=== PATIENT | female | born 1950 | race Caucasian/White ===

== ENCOUNTER 2021-01-30 17:56 | Inpatient (IN) | payer MEDICARE, MEDICAID, SELFPAY ==
[2021-01-30] VITALS (13 sets, daily range): BP systolic 118–146; BP diastolic 56–78; PULSE 81–110; RESP 20–26; TEMP 36.4–37.1; O2SAT 66–93; BMI 50.3; BMI 49.6
--- NOTE | 2021-01-30 18:42 | EKG12_ITS ---
Test Reason : DYSRHYTHMIA Blood Pressure : / mmHG Vent. Rate : 087 BPM Atrial Rate : 087 BPM P-R Int : 174 ms QRS Dur : 076 ms QT Int : 398 ms P-R-T Axes : 052 -13 019 degrees QTc Int : 478 ms Normal sinus rhythm Low voltage QRS ST & T wave abnormality, consider anterior ischemia Abnormal ECG Confirmed by KEVIN CASANOVA, BOB ([id number]), editor continuity and script ALYSE SAUER ([id number]) on 02/04/2021 8:45:08 AM Referred By: JUAN J Confirmed By:BOB BROWN MD
--- NOTE | 2021-01-30 18:43 | EDS_ITS ---
HPI History of Present Illness Chief Complaint: Cough Informant: patient Onset/Context/Timing Onset: Days (3 days) Context: Gradual Onset Narrative Narrative: Patient presents secondary to cough and sore throat for the past 3 days. She is a history of COPD. She does report increasing shortness of breath, wheezing, and for increased use of her inhaler. She is normally on 2 to 3 L of oxygen at home but does not know what her oxygen saturation runs on that. She does not follow with a cardiovascular specialist. She reportedly went to [facility] [place] to be seen today. She was unhappy with the care there and came to [place] to be evaluated. She did not have her home oxygen with her during the ride. On arrival to the emergency room her O2 sat was 66% on room air. At the time of my examination her O2 sat is in the low 90s on 6 L nasal cannula. [facility] Medical History COPD (chronic obstructive pulmonary disease) HTN (hypertension) Allergy/AdvReac Type Severity Reaction Status Date / Time aspirin AdvReac Abd Verified 01/30/21 18:05 cramps/diarrhea codeine AdvReac Abd Verified 01/30/21 18:05 cramps/diarrhea Social History Smoking Status: Former smoker ROS ROS ED Constitutional Constitutional ED: Denies chills or fever(s) Eyes Eyes: Denies change in vision ENT ENT ED: Reports sore throat Respiratory/Chest Respiratory/Chest: Reports cough, dyspnea and sputum Gastrointestinal Gastrointestinal: Denies abdominal pain, diarrhea, nausea or vomiting Genitourinary Genitourinary ED: Denies dysuria Musculoskeletal Musculoskeletal: Denies back pain Integumentary Denies rash Neurologic Neurologic: Denies headache(s) or weakness Psychiatric Psychiatric: Denies anxiety or depression Endocrine Endocrinology: Denies polydipsia or polyuria Allergic/Immunologic Allergic/Immunologic ED: Denies urticaria EXAM Physical Exam Const Vital Signs: 01/30/21 17:56 01/30/21 17:57 01/30/21 18:01 Temperature 98.8 F 98.8 F Temperature Source Oral Oral Pulse Rate 94 94 Respiratory Rate 24 H 24 H Respiratory Effort Respiratory Depth Respiratory Pattern Blood Pressure 146/77 H 146/77 H Blood Pressure Mean 100 100 Pulse Ox 88 66 66 Oxygen Delivery Method Nasal Cannula Room Air Room Air Oxygen Flow Rate (L/min) 6 01/30/21 18:02 01/30/21 18:05 01/30/21 18:57 Temperature Temperature Source Pulse Rate 85 Respiratory Rate 26 H Respiratory Effort Short of Breath Short of Breath Labored Respiratory Depth Shallow Respiratory Pattern Tachypnea Blood Pressure Blood Pressure Mean Pulse Ox 90 92 Oxygen Delivery Method Nasal Cannula Nasal Cannula Nasal Cannula Oxygen Flow Rate (L/min) 6 6 6 01/30/21 19:00 01/30/21 19:58 01/30/21 20:00 Temperature 98.1 F 98.1 F Temperature Source Oral Oral Pulse Rate 87 81 Respiratory Rate 22 H 24 H Respiratory Effort Respiratory Depth Respiratory Pattern Blood Pressure 120/56 L 137/74 H Blood Pressure Mean 77 95 Pulse Ox 91 93 Oxygen Delivery Method Nasal Cannula Airvo Airvo Oxygen Flow Rate (L/min) 5 8 8 01/30/21 21:00 Temperature 98.1 F Temperature Source Oral Pulse Rate 110 H Respiratory Rate 21 H Respiratory Effort Respiratory Depth Respiratory Pattern Blood Pressure 129/78 H Blood Pressure Mean 95 Pulse Ox 93 Oxygen Delivery Method Airvo Oxygen Flow Rate (L/min) 8 Positive well nourished and well developed General Appearance ED: well developed HEENT Reports normocephalic and head/scalp atraumatic HEENT Narrative: Posterior pharyngeal drainage. Uvula midline. Patient tolerating secretions well. Eyes PERRL and EOMs intact bilaterally Neck supple Chest Wall inspection of chest normal and palpation of chest normal Resp normal respiratory effort Auscultation: diminished lung sounds Cardio regular rate and regular rhythm GI normal to inspection, nondistended, normoactive bowel sounds Palpation: soft Extremity normal to inspection Neuro oriented x3 and no sensory deficits noted Sensorium / Orientation: alert Motor Exam: strength 5/5 throughout Psych mental status grossly normal Skin no rashes or lesions noted MDM MDM MDM Narrative Medical decision making narrative: Patient is on 6 L nasal cannula at the time of my examination. Chest x-ray, labs, Covid swab obtained. Lab Data Attestation: I reviewed the patient's lab results. Labs: Laboratory Results - last 24 hr 01/30/21 01/30/21 01/30/21 18:00 18:00 18:00 WBC 5.5 RBC 5.02 Hgb 13.9 Hct 44.3 MCV 88.2 MCH 27.7 MCHC 31.4 L RDW Std Deviation 46.9 H RDW Coeff of Mike 14.6 Plt Count 198 MPV 9.5 Immature Gran % (Auto) 1.300 H Neut % (Auto) 72.0 H Lymph % (Auto) 19.9 Hinds % (Auto) 6.6 Eos % (Auto) 0.0 Baso % (Auto) 0.2 Absolute Neuts (auto) 3.9 Absolute Lymphs (auto) 1.09 Nucleated RBC % 0.7 D-Dimer Quant (PE/DVT) Sodium 139 Potassium 3.3 L Chloride 97 L Carbon Dioxide 34.0 H Anion Gap 8 BUN 10 Creatinine 0.77 Estim Creat Clear Calc 48.30 Est GFR (MDRD) Af Amer 94 Est GFR (MDRD) Non-Af 78 BUN/Creatinine Ratio 12.9 Glucose 142 H Lactic Acid 2.2 H* Calcium 7.8 L Troponin I High Sens 35.4 B-Natriuretic Peptide 01/30/21 01/30/21 18:00 18:50 WBC RBC Hgb Hct MCV MCH MCHC RDW Std Deviation RDW Coeff of Mike Plt Count MPV Immature Gran % (Auto) Neut % (Auto) Lymph % (Auto) [place] % (Auto) Eos % (Auto) Baso % (Auto) Absolute Neuts (auto) Absolute Lymphs (auto) Nucleated RBC % D-Dimer Quant (PE/DVT) 1.55 H* Sodium Potassium Chloride Carbon Dioxide Anion Gap BUN Creatinine Estim Creat Clear Calc Est GFR (MDRD) Af Amer Est GFR (MDRD) Non-Af BUN/Creatinine Ratio Glucose Lactic Acid Calcium Troponin I High Sens B-Natriuretic Peptide 31.6 Radiography Chest X-Ray - ED: 1 View, Read by ED Physician, Right Infiltrate and Left Infiltrate Diagnostic Testing: Radiology Impression Chest X-Ray 01/30/21 19:22 IMPRESSION: Ill-defined patchy bilateral pulmonary opacities. Electronically Signed: Ash Hartman MD at 19:44 EDT , Service support , Chest CTA 01/30/21 19:48 IMPRESSION: Normal CTA chest examination, without a demonstrated pulmonary embolism or arterial dissection. There is evidence for pulmonary arterial hypertension. Bilateral patchy pulmonary opacities are seen for which multifocal pneumonia is possible. Electronically Signed: Ash Hartman MD at 21:36 EDT , Service support , EKG Initial EKG: Attestation: I personally reviewed and interpreted this EKG as follows: Interpretation: Sinus Rhythm (Sinus 87 with no acute ischemia.) Treatment and Re-Evaluation Comments:: Chest x-ray per my interpretation does reveal bilateral infiltrates. Covid swab is positive. Blood work is reviewed and does include elevated D- dimer and a lactic acid of 2.2. Patient is sent for CTA of the chest which does not reveal evidence of a PE. Bilateral infiltrates are noted. At this time patient is on 10 L high flow nasal cannula oxygen. Sat is 93%. She will be given a dose of Decadron and admitted for further treatment. Discharge Plan Triage Chief Complaint: Cough ED Provider: Daiana Casper Dx/Rx/DC Orders Clinical Impression: Pneumonia due to COVID-19 virus Primary Care Provider: Care Physician,No Primary Referrals: Care Physician,No Primary [Primary Care Provider] - Disposition Disposition: Acute Care [facility]
[2021-01-30] MEDS: Ipratropium/Albuterol Sulfate 3 ML AMPUL.NEB INHALATION (18:57)
[2021-01-30 19:14] LABS: Anion Gap 8 (5-15); BUN 10 mg/dL (7-18); BUN/Creat Ratio 12.9 RATIO (10-20); Calcium,Total 7.8 mg/dL (8.5-10.1); Chloride 97 mmol/L (98-107); Creatinine, Serum 0.77 mg/dL (0.55-1.02); EST Glomerular Filtration Rate 78 mL/min (>60); Est Glom Filt Rate - Afr Amer 94 mL/min (>60); Glucose 142 mg/dL (74-106); Potassium 3.3 mmol/L (3.5-5.1); Sodium Level 139 mmol/L (136-145); Troponin-I HS 35.4 pg/mL (3.0-53.7)
[2021-01-30 19:19] LABS: Lactic Acid 2.2 mmol/L (0.4-1.9)
[2021-01-30 19:20] LABS: Absolute Lymphocyte Count 1.09 X10^3/uL (0.83-4.51); Absolute Neutrophil Count 3.9 X10^3/uL (2.0-7.7); Basophil# 0.01 X10^3/uL; Basophil% 0.2 % (0-1); Hematocrit 44.3 % (37-47); Hemoglobin 13.9 g/dL (12.0-15.0); Lymphocyte # 1.09 X10^3/ul (0.83-4.51); Lymphocyte % 19.9 % (19-41); Mean Corp Hgb Conc 31.4 g/dL (32-36); Mean Corpuscular Hgb 27.7 pg (27.0-32.0); Mean Corpuscular Volume 88.2 fL (81-99); Mean Platelet Vol. 9.5 fl (6.2-12.0); Monocyte# 0.36 X10^3/uL; Monocyte% 6.6 % (0-10); NRBC Flagged by Analyzer 0.7 % (0-5); Neutrophil # 3.94 X10^3/uL (2.7-7.7); Platelet Count 198 K/mm3 (150-450); RBC Distribution Width CV 14.6 % (11.6-14.6); RBC Distribution Width SD 46.9 fl (35.1-43.9); Red Blood Count 5.02 M/mm3 (4.2-5.4); White Blood Count 5.5 K/mm3 (4.4-11.0)
--- NOTE | 2021-01-30 19:22 | RAD_ITS ---
STUDY: X-RAY CHEST REASON FOR EXAM: Female, 70 years old. sob TECHNIQUE: Single AP portable view of the chest. COMPARISON: None. FINDINGS: Normal lung volumes. Bilateral ill-defined patchy pulmonary opacities most pronounced in the lung bases. Findings are nonspecific but could represent multifocal pneumonia. Consider further evaluation with CT. No gross effusion. There is moderate cardiac enlargement. Normal mediastinum and vini. Normal visualized pulmonary arteries. Normal visualized aortic arch and descending thoracic aorta. There are diffuse degenerative changes of the visualized thoracic spine. Normal visualized ribs, clavicles, and shoulders. There is no demonstrated abnormality of the visualized soft tissue structures of the upper abdomen. RAD/Chest 1 View (Portable) IMPRESSION: Ill-defined patchy bilateral pulmonary opacities. Electronically Signed: Ash Hartman MD at 19:44 EDT , Service support ,
[2021-01-30 19:33] LABS: D-Dimer Quantitative (DVT/PE) 1.55 FEU/ug/m (0.27-0.49)
[2021-01-30 19:41] LABS: BNP,B-Type NATRIURETIC PEPTIDE 31.6 pg/mL (0-100)
--- NOTE | 2021-01-30 19:48 | CT_ITS ---
STUDY: CTA CHEST REASON FOR EXAM: Female, 70 years old. sob -- Covid + RADIATION DOSAGE (If Supplied By Facility): CTDIvol = ( 26.75 ) mGy, DLP = ( 543.01 ) mGycm TECHNIQUE: The examination was performed with the intravenous administration of IV 100mL Isovue-370. Post-processing of the angiographic images was performed, with multiplanar reformation and 3D reconstruction. Individualized dose optimization techniques were used for this CT. COMPARISON: None. FINDINGS: Normal enhancement of the main pulmonary artery and right and left pulmonary arteries. Normal enhancement of the bilateral peripheral pulmonary arteries. There is no demonstrated pulmonary embolism. There is prominence of the main pulmonary arteries without peripheral pulmonary vascular congestion, suggesting pulmonary hypertension. Normal thoracic aorta and visualized great vessels. There is no demonstrated aortic dissection. Moderate cardiomegaly. Mild nonspecific mediastinal and hilar adenopathy. Normal visualized trachea and bronchi. The lungs are under expanded. There are bilateral patchy areas of ill-defined pulmonary opacities in the perihilar regions, and lower lobe is worse on the left. The findings are nonspecific and of uncertain chronicity since are no prior studies. Findings could represent patchy atelectasis and/or multifocal pneumonia. No effusions . Normal osseous structures. Normal visualized upper abdomen. CT/CTA Chest W/WO Contrast IMPRESSION: Normal CTA chest examination, without a demonstrated pulmonary embolism or arterial dissection. There is evidence for pulmonary arterial hypertension. Bilateral patchy pulmonary opacities are seen for which multifocal pneumonia is possible. Electronically Signed: Ash Hartman MD at 21:36 EDT , Service support ,
[2021-01-30] MEDS: dexAMETHasone 4 MG Tablet 6 MG PO (22:17)
[2021-01-30 22:55] LABS: Reflex Lactate? Y
--- NOTE | 2021-01-30 22:57 | PCM.HP.STD ---
HPI - General General Date of Admission: 01/30/21 HPI Narrative JERRY BRO, is a 70 F with multiple comorbidities including COPD, CHF on 3 L of home oxygen, 11/01 was using BiPAP in the past but not recently came to [facility] ED for worsening shortness of breath, cough with greenish-yellowish sputum, increased use of inhalers for past 3 to 4 days. She denies fever, chills, chest pain/pressure. In ED her pulse ox was found 66% on room air and currently on 10 L of oxygen in ED. Vitals in ED, heart rate 108/min, respiratory rate 22-24/min Abnormal labs done in ER shows elevated D-dimer 1.55, K3.3, lactic acid 2.2. BNP normal. Troponin normal. CTA chest done in ER shows evidence of pulmonary arterial hold for SBP less than 120 mmHg and bilateral patchy pulmonary opacity consistent with multifocal pneumonia. No PE. [facility] Medical History CHF (congestive heart failure) COPD (chronic obstructive pulmonary disease) Dyslipidemia HTN (hypertension) Allergy/AdvReac Type Severity Reaction Status Date / Time aspirin AdvReac Abd Verified 01/30/21 18:05 cramps/diarrhea codeine AdvReac Abd Verified 01/30/21 18:05 cramps/diarrhea Social History (Updated 01/30/21 @ 23:[address] Isidoro De La Fuente MD) Smoking Status: Former smoker Tobacco: How many years used: 30 ROS ROS Narrative Constitutional: Reports fatigue and weakness. Denies fever HEENT: Reports systems reviewed and no addt'l complaints, except as documented Respiratory/Chest: Denies chest pain, shortness of breath at rest. Rest as mentioned in HPI Gastrointestinal: Nausea present. Denies coffee ground emesis, hematemesis or vomiting Genitourinary: Chronic urinary incontinence. Denies burning urination or new urinary tract symptoms Musculoskeletal: Reports joint pain and limited range of motion Neurologic: Denies seizure-like activity skin: Venous congestion on lower legs, edematous. No ulcer. Endocrinology: Reports systems reviewed and no addt'l complaints, except as documented Hematologic/Lymphatic: Reports systems reviewed and no addt'l complaints, except as documented Rest 12 ROS are negative except as mentioned in HPI Vital Signs Vital Signs Vital Signs: 01/30/21 17:56 01/30/21 17:57 01/30/21 18:01 Temperature 98.8 F 98.8 F Temperature Source Oral Oral Pulse Rate 94 94 Respiratory Rate 24 H 24 H Respiratory Effort Respiratory Depth Respiratory Pattern Blood Pressure 146/77 H 146/77 H Blood Pressure Mean 100 100 Pulse Ox 88 66 66 Oxygen Delivery Method Nasal Cannula Room Air Room Air Oxygen Flow Rate (L/min) 6 01/30/21 18:02 01/30/21 18:05 01/30/21 18:57 Temperature Temperature Source Pulse Rate 85 Respiratory Rate 26 H Respiratory Effort Short of Breath Short of Breath Labored Respiratory Depth Shallow Respiratory Pattern Tachypnea Blood Pressure Blood Pressure Mean Pulse Ox 90 92 Oxygen Delivery Method Nasal Cannula Nasal Cannula Nasal Cannula Oxygen Flow Rate (L/min) 6 6 6 01/30/21 19:00 01/30/21 19:58 01/30/21 20:00 Temperature 98.1 F 98.1 F Temperature Source Oral Oral Pulse Rate 87 81 Respiratory Rate 22 H 24 H Respiratory Effort Respiratory Depth Respiratory Pattern Blood Pressure 120/56 L 137/74 H Blood Pressure Mean 77 95 Pulse Ox 91 93 Oxygen Delivery Method Nasal Cannula Airvo Airvo Oxygen Flow Rate (L/min) 5 8 8 01/30/21 21:00 01/30/21 22:00 01/30/21 22:25 Temperature 98.1 F 98.1 F 98.5 F Temperature Source Oral Oral Oral Pulse Rate 110 H 107 H 108 H Respiratory Rate 21 H 20 H 22 H Respiratory Effort Respiratory Depth Respiratory Pattern Blood Pressure 129/78 H 118/78 118/78 Blood Pressure Mean 95 91 91 Pulse Ox 93 92 92 Oxygen Delivery Method Airvo Airvo Airvo Oxygen Flow Rate (L/min) 8 8 10 Weight Weight: 311 lb 11.738 oz Body Mass Index (BMI) 50.3 Physical Exam Narrative General: Alert, Oriented x3, Cooperative HEENT: Atraumatic, PERRLA, EOMI, Normocephalic Oral: No Gingival or Mucosal Lesions/ Ulcerations Neck: Supple, No JVD, Negative Carotid Bruits Lungs: Air entry diminished in bilateral lung bases. Bilateral expiratory rhonchi present. Tachypneic and hypoxic Cardiovascular: Sinus tachycardia, normal S1, Normal S2, No murmurs Abdomen: Bowel Sounds Present, Soft, Non Tender, Non-Distended : Chronic urinary incontinence. No renal angle tenderness. No suprapubic tenderness. Extremities: Bilateral 2+ ankle edema, Capillary Refill Less than 3 Seconds Skin: No rashes, No breakdown Musculoskeletal: No Tenderness to Palpation of Joints or Extremities Neurological: Cranial nerves II-XII grossly intact, DTR 2+/4 and Symmetrical, Neuro grossly intact Psych/Mental Status: Normal Affect, Appropriate. Results Lab / Micro Data Result Diagrams: 01/30/21 18:00 01/30/21 18:00 Labs: Laboratory Results - last 24 hr 01/30/21 18:00: WBC 5.5, RBC 5.02, Hgb 13.9, Hct 44.3, MCV 88.2, MCH 27.7, MCHC 31.4 L, RDW Std Deviation 46.9 H, RDW Coeff of Mike 14.6, Plt Count 198, MPV 9.5, Immature Gran % (Auto) 1.300 H, Neut % (Auto) 72.0 H, Lymph % (Auto) 19.9, [place] % (Auto) 6.6, Eos % (Auto) 0.0, Baso % (Auto) 0.2, Absolute Neuts (auto) 3.9, Absolute Lymphs (auto) 1.09, Nucleated RBC % 0.7 01/30/21 18:00: Sodium 139, Potassium 3.3 L, Chloride 97 L, Carbon Dioxide 34.0 H, Anion Gap 8, BUN 10, Creatinine 0.77, Estim Creat Clear Calc 48.30, Est GFR (MDRD) Af Amer 94, Est GFR (MDRD) Non-Af 78, BUN/Creatinine Ratio 12.9, Glucose 142 H, Calcium 7.8 L, Troponin I High Sens 35.4 01/30/21 18:00: Lactic Acid 2.2 H* 01/30/21 18:00: B-Natriuretic Peptide 31.6 01/30/21 18:50: D-Dimer Quant (PE/DVT) 1.55 H* Micro: Microbiology 01/30/21 19:06 Mucosa - Nose SARS-CoV-2 Antigen (Rapid) - Final SARS-CoV-2 (COVID 19) Radiology Impression Chest X-Ray 01/30/21 19:22 IMPRESSION: Ill-defined patchy bilateral pulmonary opacities. Electronically Signed: Ash Hartman MD at 19:44 EDT , Service support , Chest CTA 01/30/21 19:48 IMPRESSION: Normal CTA chest examination, without a demonstrated pulmonary embolism or arterial dissection. There is evidence for pulmonary arterial hypertension. Bilateral patchy pulmonary opacities are seen for which multifocal pneumonia is possible. Electronically Signed: Ash Hartman MD at 21:36 EDT , Service support , Assessment & Plan Assessment/Plan (1) Pneumonia due to COVID-19 virus: PLAN: This 70-year-old female with history of COPD on 3 L of oxygen at home admitted with acute on chronic hypoxic respiratory failure secondary to Covid bilateral pneumonia. 1. Acute on chronic hypoxic respiratory failure secondary to bilateral COVID-19 pneumonia: Patient baseline bicarb is 34 suggestive of chronic CO2 retention. ABG ordered. started on the BiPAP. [employer] consult. Currently patient on 10 L of oxygen in ED. She is open to intubation and ventilator if needed. 2. Severe sepsis due to bilateral COVID-19 pneumonia: Started on IV Decadron and remdesivir. ID consult. Inflammatory markers, procalcitonin ordered. Sputum culture, respiratory panel and urinary antigens ordered. Lactic acid elevated. She has leg edema and seems fluid overloaded with history of CHF therefore not a candidate for IV fluid resuscitation. If patient spikes fever, will need blood culture. 3. 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 She has not brought her medications. 4. She also has history of CHF, exact etiology and type unclear. 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 2D echo is ordered. Lasix 40 mg IV daily from tomorrow a.m. and titrate as needed. 5. Other comorbidities include hypertension, dyslipidemia, morbid obesity: BMI 50.3 kg/m?. Patient's daughter did not bring medication list and patient is new to our system. Her medical care including PCP was at [place]. VTE prophylaxis: Lovenox 40 mg subcu twice daily Living will/advanced directive/end of life care: Patient does not have living will or advanced directive. Her daughter Mrs. Ana Luisa Cummings is power of commercial litigation attorney for health. After discussion of benefits/risks procedures involved with full code, DNR CC arrest and DNR CC, the patient and her daughter opted for full code Patient does want artificial life support including intubation, tube feed, ventilator and/chest compression, central venous catheter, vasopressor and DC shock if needed Total time spent in [id number] encounter in discussion of advanced directive 16 minutes. Charges/Coding Visit Charges Inpatient E&M: 99800 Init Hosp L3 Procedures Hospitalists Procedures: 74971 Advncd Care Plan 30 Min
[2021-01-31] VITALS (26 sets, daily range): BP systolic 103–138; BP diastolic 53–77; PULSE 70–107; RESP 12–24; TEMP 35.8–36.1; O2SAT 90–95
[2021-01-31 00:10] LABS: Allen Test Positive; Base Excess 9 mmol/L (-2 to +2); Bicarbonate 32.7 mmol/L (22-26); Blood Gas Specimen Type ART; O2 Delivery Device Cannula; PO2 57 mmHG (75-100); SITE R Radial; SO2 90 % (95-99); Total Carbon Dioxide 34 mmol/L; pCO2 47.4 mmHg (35-45); pH 7.45 (7.35-7.45)
[2021-01-31] MEDS: Ipratropium/Albuterol Sulfate 3 ML AMPUL.NEB INHALATION ×6 (00:13→22:53)
[2021-01-31 00:28] LABS: Fibrinogen 737 mg/dl (203-444)
[2021-01-31] MEDS: Enoxaparin 40 MG/0.4 ML Syringe SC ×3 (00:33→22:24)
[2021-01-31 00:37] LABS: LDH 543 U/L (84-246); Magnesium 1.9 mg/dL (1.6-2.6)
[2021-01-31] MEDS: guaiFENesin 1,200 MG Tablet 1200 MG PO ×3 (00:41→22:24)
[2021-01-31 00:46] LABS: Procalcitonin 0.11 ng/mL (0.00-0.09)
[2021-01-31 00:57] LABS: CPK Total, Creatine Kinase 181 U/L (26-192)
[2021-01-31 01:09] LABS: Lactic Acid 1.6 mmol/L (0.4-1.9)
--- NOTE | 2021-01-31 02:25 | CPS ---
Patient said at time of ABG that she has a CPAP at home, but is unable to tolerate it. Said that she has claustrophobia with full face mask. Will watch over patient of High flow NC. aware that BiPAP was not started for this reason.
[2021-01-31 05:45] LABS: Absolute Lymphocyte Count 0.56 X10^3/uL (0.83-4.51); Absolute Neutrophil Count 2.8 X10^3/uL (2.0-7.7); Basophil# 0.02 X10^3/uL; Basophil% 0.6 % (0-1); Hematocrit 40.7 % (37-47); Hemoglobin 12.7 g/dL (12.0-15.0); Lymphocyte # 0.56 X10^3/ul (0.83-4.51); Lymphocyte % 15.8 % (19-41); Mean Corp Hgb Conc 31.2 g/dL (32-36); Mean Corpuscular Hgb 27.7 pg (27.0-32.0); Mean Corpuscular Volume 88.7 fL (81-99); Mean Platelet Vol. 9.6 fl (6.2-12.0); Monocyte% 2.8 % (0-10); NRBC Flagged by Analyzer 0.8 % (0-5); Neutrophil # 2.79 X10^3/uL (2.7-7.7); Neutrophil % 78.5 % (47-70); POSITIVE DIFFERENTIAL YES; POSITIVE MORPHOLOGY YES; Platelet Count 174 K/mm3 (150-450); RBC Distribution Width CV 14.5 % (11.6-14.6); RBC Distribution Width SD 46.7 fl (35.1-43.9); Red Blood Count 4.59 M/mm3 (4.2-5.4); White Blood Count 3.6 K/mm3 (4.4-11.0)
--- NOTE | 2021-01-31 05:48 | EX.PCM.CONCC ---
Assessment & Plan Assessment/Plan (1) Pneumonia due to COVID-19 virus: PLAN: RECOMMENDATIONS: 1. Wean supplemental oxygen as tolerated. 2. Continue remdesivir and Decadron as ordered to complete treatment courses. 3. Infectious diseases consultation is pending. 4. Echocardiogram is pending. 5. Continue twice daily Lovenox. 6. Continue bronchodilator therapy. 7. Encourage incentive spirometer use and mobilize patient as tolerated. IMPRESSIONS: 1. Acute on chronic hypoxemic respiratory failure secondary to COVID-19 pneumonia The patient is unvaccinated and presented with less than 1 week of respiratory symptoms related to COVID-19 pneumonia. She does have a baseline 3 L/min oxygen requirement but is currently requiring an escalation in her flow rate to 6 L/min. She has already been started on remdesivir and Decadron. These medications will be continued without change. Infectious diseases consultation is pending. Plan to continue to wean supplemental oxygen as tolerated to maintain saturations at or above 90%. Encourage incentive spirometer use and mobilize patient as tolerated. 2. History of obstructive sleep apnea, noncompliant with nocturnal Pap therapy Recommend empiric use of BiPAP therapy, at a minimum, with naps and nightly. 3. History of tobacco dependency in remission/morbid obesity/self-reported history of CHF Complicates care, management, recovery and prognosis. Continue home medications as indicated. Physical therapy to work with the patient. This note was generated with [employer] dictation software. It may contain incorrect words, spelling, and punctuation that were not noted in checking the note before signing. HPI Consult Data Date of Consult: 01/31/21 HPI Narrative Reason for Consultation: Acute on chronic hypoxemic respiratory failure secondary to COVID-19 pneumo HPI Narrative: The patient is a 70-year-old female, with a history as outlined below, who presented to the emergency department on January 30 with complaints of progressive dyspnea and cough over the last week. The patient does have a self-reported history of COPD, despite never having completed pulmonary function studies. She has never been evaluated by a predatory game hunter. She does have a remote smoking history, having quit completely 18 years ago. In addition to the aforementioned, she does report a baseline oxygen requirement of 3 L/min via nasal cannula. The patient has also tested positive for sleep apnea in the past, but does not utilize any form of nocturnal Pap therapy. The patient has yet to be vaccinated for coronavirus. On presentation to the emergency department, the patient was noted to be afebrile and hemodynamically stable. Initial laboratory evaluation revealed no evidence of a leukocytosis. Coagulation profile revealed a D-dimer of 1.5. ABG obtained on 6 L/min revealed a pH of 7.45 with a corresponding PCO2 of 47 and PO2 of 57. Chemistry profile was notable for a potassium of 3.3, chloride of 97, bicarbonate of 34 and normal creatinine. Lactate was elevated to 2.2. Procalcitonin was noted to be 0.11. CRP was elevated at 134. Rapid coronavirus antigen testing was positive. Respiratory viral panel was negative. Strep and urine Legionella antigens were negative. CTA chest showed no evidence for PE. Bilateral patchy pulmonary infiltrates were noted. The patient was started on remdesivir, twice daily Lovenox and Decadron. She was admitted to the medical intensive care unit for further management. [facility] Medical History CHF (congestive heart failure) COPD (chronic obstructive pulmonary disease) Dyslipidemia HTN (hypertension) Allergy/AdvReac Type Severity Reaction Status Date / Time aspirin AdvReac Abd Verified 01/30/21 18:05 cramps/diarrhea codeine AdvReac Abd Verified 01/30/21 18:05 cramps/diarrhea Social History (Updated 01/30/21 @ 23:[address] Isidoro De La Fuente MD) Smoking Status: Former smoker Tobacco: How many years used: 30 ROS Constitutional Constitutional: Reports fatigue and malaise Eyes Eyes: Denies blurry vision or change in vision ENT HEENT: Denies dysphagia, headache(s) or loss taste/smell Cardiovascular Cardiovascular: Reports dyspnea; Denies chest pain Respiratory/Chest Respiratory/Chest: Reports cough and dyspnea Gastrointestinal Gastrointestinal: Denies abdominal pain, diarrhea, nausea or vomiting Genitourinary Genitourinary: Denies difficulty urinating Musculoskeletal Musculoskeletal: Denies arthralgias or back pain Integumentary Integumentary: Denies lesions, rash or skin ulcer Neurologic Neurologic: Denies abnormal gait or abnormal speech Psychiatric Psychiatric: Denies anxiety or depression Endocrine Endocrinology: Reports fatigue Hematologic/Lymphatic Hematologic/Lymphatic: Denies easy bleeding or easy bruising Physical Exam Const alert, oriented x3 and no apparent distress General Appearance: cooperative Nutritional Appearance: morbidly obese HEENT normocephalic, head/scalp atraumatic and moist oral mucous membranes Eyes PERRL, EOMs intact bilaterally and conjunctivae normal Neck supple General: trachea midline Resp normal respiratory effort and no use of accessory muscles Effort and Inspection: tachypneic Auscultation: diminished lung sounds; Negative for rales, rhonchi or wheezes Cardio regular rate and regular rhythm GI normal to inspection, nondistended, normoactive bowel sounds Extremity General Extremity: edema bilateral lower extremity; Negative for clubbing Skin no rashes or lesions noted Neuro CN's II-XII intact bilaterally and no focal motor deficits Psych cooperative and affect normal Lab / Micro Data Result Diagrams: 01/31/21 05:35 01/31/21 05:35 Labs: Laboratory Results - last 24 hr 01/30/21 18:00: WBC 5.5, RBC 5.02, Hgb 13.9, Hct 44.3, MCV 88.2, MCH 27.7, MCHC 31.4 L, RDW Std Deviation 46.9 H, RDW Coeff of Mike 14.6, Plt Count 198, MPV 9.5, Immature Gran % (Auto) 1.300 H, Neut % (Auto) 72.0 H, Lymph % (Auto) 19.9, [place] % (Auto) 6.6, Eos % (Auto) 0.0, Baso % (Auto) 0.2, Absolute Neuts (auto) 3.9, Absolute Lymphs (auto) 1.09, Nucleated RBC % 0.7 01/30/21 18:00: Sodium 139, Potassium 3.3 L, Chloride 97 L, Carbon Dioxide 34.0 H, Anion Gap 8, BUN 10, Creatinine 0.77, Estim Creat Clear Calc 48.30, Est GFR (MDRD) Af Amer 94, Est GFR (MDRD) Non-Af 78, BUN/Creatinine Ratio 12.9, Glucose 142 H, Calcium 7.8 L, Troponin I High Sens 35.4 01/30/21 18:00: Lactic Acid 2.2 H* 01/30/21 18:00: B-Natriuretic Peptide 31.6 01/30/21 18:00: Magnesium 1.9, Lactate Dehydrogenase 543 H, C-React Prot Ext Range 134.00 H 01/30/21 18:00: Total Creatine Kinase 181 01/30/21 18:00: Procalcitonin 0.11 H 01/30/21 18:50: D-Dimer Quant (PE/DVT) 1.55 H* 01/30/21 18:50: Fibrinogen 737 H 01/30/21 23:45: Lactic Acid 1.6 Micro: Microbiology 01/31/21 01:25 Urine, Clean Catch Legionella Antigen - Final 01/31/21 01:25 Urine, Clean Catch Streptococcus pneumoniae Antigen (M - Final 01/30/21 19:06 Mucosa - Nose SARS-CoV-2 Antigen (Rapid) - Final SARS-CoV-2 (COVID 19) ABG Data ABG results: ABG 01/31/21 00:02 Specimen Type ART Sample Site R Radial pH 7.45 Bicarbonate Actual 32.7 H Total CO2 34 Base Excess 9 H O2 Saturation 90 L ABG pCO2 47.4 H ABG pO2 57 L Jj Test Positive O2 Delivery Device Cannula Liter Flow 6.0 Radiology Impression Chest X-Ray 01/30/21 19:22 IMPRESSION: Ill-defined patchy bilateral pulmonary opacities. Electronically Signed: Ash Hartman MD at 19:44 EDT , Service support , Chest CTA 01/30/21 19:48 IMPRESSION: Normal CTA chest examination, without a demonstrated pulmonary embolism or arterial dissection. There is evidence for pulmonary arterial hypertension. Bilateral patchy pulmonary opacities are seen for which multifocal pneumonia is possible. Electronically Signed: Ash Hartman MD at 21:36 EDT , Service support , Charges/Coding Visit Charges Inpatient E&M: 63842 Init Hosp L3
[2021-01-31 06:07] LABS: Differential Indicated SCAN CRITERIA MET
[2021-01-31 06:12] LABS: ALB/GLOB Ratio 0.6 RATIO (0.9-2.4); AST(SGOT) 53 U/L (15-37); Alanine Aminotransfer ALT/SGPT 23 U/L (13-56); Albumin, Serum 2.3 g/dL (3.2-5.0); Alkaline Phosphatase 61 U/L (45-117); Anion Gap 6 (5-15); BUN 8 mg/dL (7-18); BUN/Creat Ratio 13.2 RATIO (10-20); Calcium,Total 7.4 mg/dL (8.5-10.1); Chloride 99 mmol/L (98-107); Creatinine, Serum 0.61 mg/dL (0.55-1.02); EST Glomerular Filtration Rate 103 mL/min (>60); Est Glom Filt Rate - Afr Amer 125 mL/min (>60); Globulin 3.9 g/dL (2.2-4.2); Glucose 225 mg/dL (74-106); Phosphorus 2.9 mg/dL (2.5-4.9); Potassium 3.5 mmol/L (3.5-5.1); Protein, Total 6.2 g/dL (6.4-8.2); Sodium Level 140 mmol/L (136-145)
[2021-01-31] MEDS: Furosemide 40 MG/4 ML Vial IV (09:55)
[2021-01-31] MEDS: dexAMETHasone 10 MG/ML Vial 6 MG IV (09:55)
[2021-01-31] MEDS: 0.9% Saline Lock 10 ML Syringe IV (09:56)
[2021-01-31 12:35] LABS: Pathologist Review Reviewed
--- NOTE | 2021-01-31 13:46 | CASEMGMT ---
RN ZACHARY RANGE EXAMINER ZACHARY spoke w/patient for initial transition planning/care coordination assessment. MAURY SHARMA introduced self and role at [facility]. Pt voices understanding and consents to assessment at this time. Pt is A/O at this time and answers all questions appropriately. Care providers, pharmacy, and demographics verified/updated at this time. Pt also asks for RN ZACHARY to speak w/her daughter, Ana Luisa, re: the following information for clarification/further info. Call placed to Ana Luisa and some of the following information was obtained from her. PCP: Pt was seeing a PCP in [place], who just recently stopped seeing pt d/t taking giraldo-only pt's now, so pt does not have PCP. She states her dtr is interested in her finding PCP in [place] area and asks for RN ZACHARY to speak w/her re: this. [facility] would like pt to start seeing Dr Cortés and asks if this could be set up for pt. ICU materials handling equipment operator notified of same. Specialists: Pt was seeing a Ip Network Architect in [place] who has retired and [facility] would like to find a grinding wheel facer in [place]. List of local providers given to RN to take into pt's room to give to her. Ana Luisa aware. Preferred Pharmacy: [facility]. Insurance: [facility] Dual Prescription Benefit: Yes Living Will/HPOA: Pt states she does not have LW or HCPOA . Interested in more information. RN ZACHARY provided information to RN to take to pt re: advanced directives and Social Service rac card with number to call if pt chooses in the future to utilize [facility] social work for advanced directive completion once she is out of COVID precautions. Pt/Ana Luisa made aware. LNOK: [place]. 4 living children. Pt states Ana Luisa is the only local child and assists her when needed. Living Arrangements: Lives w/her who is sick w/cough. Per Ana Luisa, to get COVID testing soon. Pt states her works 7-days/week. Pt is independent w/ADL's, medication mgmt, and appts. Pt does her own grocery shopping and meals. Ana Luisa assists w/various other home mgmt tasks and goes to dr medel w/her. Transportation: Dtr, Ana Luisa. . DME: States has the following DME: older-style metal tub bench, walker. States she has O2 @ 3 L/M continuous thru [facility]. States has portable tanks and concentrator. Has extractor to refill portable tanks. Ana Luisa can bring portable O2 tank in when pt discharges home. Pt states she is interested in getting a new tub bench and W/C for longer distances and plans to use the money card she gets from [facility] towards these items. Ana Luisa aware and states she will assist w/this. Call placed to [facility] ([phone]) and spoke w/Cally. She states current oxygen orders are for 2 L/M continuous. HHC/SNF: No hx of either. Pt is interested in HHC and does not have preference of agency. List given to RN to take into pt's room for her to review. Neither pt nor her dtr have preference of HHC agency. Pt wishes to return home and states has no concerns with going home at time of discharge. CM to follow for any increase in home oxygen needs and any further discharge planning/needs. Pt voices no further concerns/needs at this time. Advised pt to ask for CM if any further questions/concerns/needs arise. Voices understanding. PLAN: Home w/family support and discharge plans in place. Pt interested in HHC. This has not been set up yet. CM to follow for any increase in O2 needs @ d/c. Susana TRINIDADN MAURY SHARMA
--- NOTE | 2021-01-31 14:42 | PCM.CONS.GEN ---
Assessment & Plan Assessment/Plan (1) Pneumonia due to COVID-19 virus: PLAN: Sx started around 01/28/21. Unvaccinated. On 3L home O2. Encouraged her to get tested and quarantine. Both should get vaccine after past this. On dex/remdesivir, will order daily labs. Will follow, thank you (2) Hypoxia: HPI Consult Data Date of Consult: 01/31/21 HPI Narrative HPI Narrative: JERRY BRO, is a 70 F on 3L home O2 due to COPD, presented with 3-4 days of cough, dyspnea. No fever or chills, no n/v/d, no aches, no change in taste or smell. No covid vaccine. Lives with , he has not been tested, he is unvaccinated. Came to ED, covid (+), admitted to icu, started on dex/remdesivir. Full ROS performed and neg except as noted above. [facility] Medical History CHF (congestive heart failure) COPD (chronic obstructive pulmonary disease) Dyslipidemia HTN (hypertension) Allergy/AdvReac Type Severity Reaction Status Date / Time aspirin AdvReac Abd Verified 01/30/21 18:05 cramps/diarrhea codeine AdvReac Abd Verified 01/30/21 18:05 cramps/diarrhea Social History (Updated 01/30/21 @ 23:[address] Isidoro De La Fuente MD) Smoking Status: Former smoker Tobacco: How many years used: 30 Physical Exam Const alert and no apparent distress General Appearance: cooperative Exam Limitations: no limitations HEENT normocephalic and head/scalp atraumatic Eyes PERRL and EOMs intact bilaterally Neck supple and No nodes Resp Auscultation: diminished lung sounds Cardio regular rate and regular rhythm GI normal to inspection, nondistended, normoactive bowel sounds Extremity General Extremity: edema Skin no rashes or lesions noted Neuro CN's II-XII intact bilaterally Medical Records Data Medical Nutrition Assessment Dietitian: Nutrition Therapy Diagnosis Start: 01/31/21 09:59 Freq: Status: Active Protocol: Document 01/31/21 10:06 (Rec: 01/31/21 10:07 [id number]) Nutrition Malnutrition Evidence of Malnutrition Exists No Clinical Problem Altered Nutrient-Related Laboratory Values Etiology r/t steroid administration Signs/Symptoms as evidenced by hyperglycemia (glucose 225mg/dL) Status Active Problem Recommendation Dietitian Recommendations/Changes continue sodium restricted diet. Recommend fluid restriction as indicated. Lab / Micro Data Result Diagrams: 01/31/21 05:35 01/31/21 05:35 Labs: Laboratory Results - last 24 hr 01/30/21 18:00: WBC 5.5, RBC 5.02, Hgb 13.9, Hct 44.3, MCV 88.2, MCH 27.7, MCHC 31.4 L, RDW Std Deviation 46.9 H, RDW Coeff of Mike 14.6, Plt Count 198, MPV 9.5, Immature Gran % (Auto) 1.300 H, Neut % (Auto) 72.0 H, Lymph % (Auto) 19.9, [place] % (Auto) 6.6, Eos % (Auto) 0.0, Baso % (Auto) 0.2, Absolute Neuts (auto) 3.9, Absolute Lymphs (auto) 1.09, Nucleated RBC % 0.7 01/30/21 18:00: Sodium 139, Potassium 3.3 L, Chloride 97 L, Carbon Dioxide 34.0 H, Anion Gap 8, BUN 10, Creatinine 0.77, Estim Creat Clear Calc 48.30, Est GFR (MDRD) Af Amer 94, Est GFR (MDRD) Non-Af 78, BUN/Creatinine Ratio 12.9, Glucose 142 H, Calcium 7.8 L, Troponin I High Sens 35.4 01/30/21 18:00: Lactic Acid 2.2 H* 01/30/21 18:00: B-Natriuretic Peptide 31.6 01/30/21 18:00: Magnesium 1.9, Lactate Dehydrogenase 543 H, C-React Prot Ext Range 134.00 H 01/30/21 18:00: Total Creatine Kinase 181 01/30/21 18:00: Procalcitonin 0.11 H 01/30/21 18:50: D-Dimer Quant (PE/DVT) 1.55 H* 01/30/21 18:50: Fibrinogen 737 H 01/30/21 23:45: Lactic Acid 1.6 01/31/21 05:35: WBC 3.6 L, RBC 4.59, Hgb 12.7, Hct 40.7, MCV 88.7, MCH 27.7, MCHC 31.2 L, RDW Std Deviation 46.7 H, RDW Coeff of Mike 14.5, Plt Count 174, MPV 9.6, Immature Gran % (Auto) 2.300 H, Neut % (Auto) 78.5 H, Lymph % (Auto) 15.8 L, [place] % (Auto) 2.8, Eos % (Auto) 0.0, Baso % (Auto) 0.6, Absolute Neuts (auto) 2.8, Absolute Lymphs (auto) 0.56 L, Nucleated RBC % 0.8, Diff Path Review Reviewed 01/31/21 05:35: Sodium 140, Potassium 3.5, Chloride 99, Carbon Dioxide 35.0 H, Anion Gap 6, BUN 8, Creatinine 0.61, Estim Creat Clear Calc 48.30, Est GFR (MDRD) Af Amer 125, Est GFR (MDRD) Non-Af 103, BUN/Creatinine Ratio 13.2, Glucose 225 H, Calcium 7.4 L, Phosphorus 2.9, Total Bilirubin 0.80, AST 53 H, ALT 23, Alkaline Phosphatase 61, Total Protein 6.2 L, Albumin 2.3 L, Globulin 3.9, Albumin/Globulin Ratio 0.6 L Micro: Microbiology 01/30/21 23:40 Mucosa - Nasopharyngeal Respiratory Panel (PCR) - Final 01/31/21 01:25 Urine, Clean Catch Legionella Antigen - Final 01/31/21 01:25 Urine, Clean Catch Streptococcus pneumoniae Antigen (M - Final 01/30/21 19:06 Mucosa - Nose SARS-CoV-2 Antigen (Rapid) - Final SARS-CoV-2 (COVID 19) ABG Data ABG results: ABG 01/31/21 00:02 Specimen Type ART Sample Site R Radial pH 7.45 Bicarbonate Actual 32.7 H Total CO2 34 Base Excess 9 H O2 Saturation 90 L ABG pCO2 47.4 H ABG pO2 57 L Jj Test Positive O2 Delivery Device Cannula Liter Flow 6.0 Radiology Impression Chest X-Ray 01/30/21 19:22 IMPRESSION: Ill-defined patchy bilateral pulmonary opacities. Electronically Signed: Ash Hartman MD at 19:44 EDT , Service support , Chest CTA 01/30/21 19:48 IMPRESSION: Normal CTA chest examination, without a demonstrated pulmonary embolism or arterial dissection. There is evidence for pulmonary arterial hypertension. Bilateral patchy pulmonary opacities are seen for which multifocal pneumonia is possible. Electronically Signed: Ash Hartman MD at 21:36 EDT , Service support ,
--- NOTE | 2021-01-31 17:09 | PN.HOSP_ITS ---
Subjective Subjective Patient is currently on 6 L nasal cannula via high flow. Oxygen saturations are in the 91 to 92% range. She has had increasing oxygen requirements throughout the day. She reports that she started with symptoms approximately 3 days ago and was not vaccinated. She states that she is now however interested in being vaccinated. Objective Data Objective Data Vital Signs: Vital Signs Temp Pulse Resp BP Pulse Ox 96.8 F L 83 24 H 125/53 H 91 01/31/21 09:53 01/31/21 15:00 01/31/21 15:00 01/31/21 09:53 01/31/21 15:00 Oxygen Flow Rate (L/min) 6 Oxygen Delivery Method Nasal Cannula Weight: 139.5 kg Body Mass Index (BMI) 49.6 Intake & Output: Intake and Output for Last 24 Hours 01/29/21 01/30/21 01/31/21 23:59 23:59 23:59 Intake Total 810 / 810 Output Total 1775 / 1775 Balance -965 / -965 Medical Nutrition Assessment Dietitian: Nutrition Therapy Diagnosis Start: 01/31/21 09:59 Freq: Status: Active Protocol: Document 01/31/21 10:06 (Rec: 01/31/21 10:07 [id number]) Nutrition Malnutrition Evidence of Malnutrition Exists No Clinical Problem Altered Nutrient-Related Laboratory Values Etiology r/t steroid administration Signs/Symptoms as evidenced by hyperglycemia (glucose 225mg/dL) Status Active Problem Recommendation Dietitian Recommendations/Changes continue sodium restricted diet. Recommend fluid restriction as indicated. Lab / Micro Data Result Diagrams: 01/31/21 05:35 01/31/21 05:35 Labs: Laboratory Results - last 24 hr 01/30/21 18:00: WBC 5.5, RBC 5.02, Hgb 13.9, Hct 44.3, MCV 88.2, MCH 27.7, MCHC 31.4 L, RDW Std Deviation 46.9 H, RDW Coeff of Mike 14.6, Plt Count 198, MPV 9.5, Immature Gran % (Auto) 1.300 H, Neut % (Auto) 72.0 H, Lymph % (Auto) 19.9, [place] % (Auto) 6.6, Eos % (Auto) 0.0, Baso % (Auto) 0.2, Absolute Neuts (auto) 3.9, Absolute Lymphs (auto) 1.09, Nucleated RBC % 0.7 01/30/21 18:00: Sodium 139, Potassium 3.3 L, Chloride 97 L, Carbon Dioxide 34.0 H, Anion Gap 8, BUN 10, Creatinine 0.77, Estim Creat Clear Calc 48.30, Est GFR (MDRD) Af Amer 94, Est GFR (MDRD) Non-Af 78, BUN/Creatinine Ratio 12.9, Glucose 142 H, Calcium 7.8 L, Troponin I High Sens 35.4 01/30/21 18:00: Lactic Acid 2.2 H* 01/30/21 18:00: B-Natriuretic Peptide 31.6 01/30/21 18:00: Magnesium 1.9, Lactate Dehydrogenase 543 H, C-React Prot Ext Range 134.00 H 01/30/21 18:00: Total Creatine Kinase 181 01/30/21 18:00: Procalcitonin 0.11 H 01/30/21 18:50: D-Dimer Quant (PE/DVT) 1.55 H* 01/30/21 18:50: Fibrinogen 737 H 01/30/21 23:45: Lactic Acid 1.6 01/31/21 05:35: WBC 3.6 L, RBC 4.59, Hgb 12.7, Hct 40.7, MCV 88.7, MCH 27.7, MCHC 31.2 L, RDW Std Deviation 46.7 H, RDW Coeff of Mike 14.5, Plt Count 174, MPV 9.6, Immature Gran % (Auto) 2.300 H, Neut % (Auto) 78.5 H, Lymph % (Auto) 15.8 L , [place] % (Auto) 2.8, Eos % (Auto) 0.0, Baso % (Auto) 0.6, Absolute Neuts (auto) 2.8, Absolute Lymphs (auto) 0.56 L, Nucleated RBC % 0.8, Diff Path Review Reviewed 01/31/21 05:35: Sodium 140, Potassium 3.5, Chloride 99, Carbon Dioxide 35.0 H, Anion Gap 6, BUN 8, Creatinine 0.61, Estim Creat Clear Calc 48.30, Est GFR (MDRD) Af Amer 125, Est GFR (MDRD) Non-Af 103, BUN/Creatinine Ratio 13.2, Glucose 225 H, Calcium 7.4 L, Phosphorus 2.9, Total Bilirubin 0.80, AST 53 H, ALT 23, Alkaline Phosphatase 61, Total Protein 6.2 L, Albumin 2.3 L, Globulin 3.9, Albumin/Globulin Ratio 0.6 L Micro: Microbiology 01/31/21 01:25 Sputum, Expectorated/Coughed Gram Stain - Final 01/30/21 23:40 Mucosa - Nasopharyngeal Respiratory Panel (PCR) - Final 01/31/21 01:25 Urine, Clean Catch Legionella Antigen - Final 01/31/21 01:25 Urine, Clean Catch Streptococcus pneumoniae Antigen (M - Final 01/30/21 19:06 Mucosa - Nose SARS-CoV-2 Antigen (Rapid) - Final SARS-CoV-2 (COVID 19) ABG Data ABG results: ABG 01/31/21 00:02 Specimen Type ART Sample Site R Radial pH 7.45 Bicarbonate Actual 32.7 H Total CO2 34 Base Excess 9 H O2 Saturation 90 L ABG pCO2 47.4 H ABG pO2 57 L Jj Test Positive O2 Delivery Device Cannula Liter Flow 6.0 Radiography Diagnostic Testing: Radiology Impression Chest X-Ray 01/30/21 19:22 IMPRESSION: Ill-defined patchy bilateral pulmonary opacities. Electronically Signed: Ash Hartman MD at 19:44 EDT , Service support , Chest CTA 01/30/21 19:48 IMPRESSION: Normal CTA chest examination, without a demonstrated pulmonary embolism or arterial dissection. There is evidence for pulmonary arterial hypertension. Bilateral patchy pulmonary opacities are seen for which multifocal pneumonia is possible. Electronically Signed: Ash Hartman MD at 21:36 EDT , Service support , Physical Exam Const alert, oriented x3 and no apparent distress Constitutional Narrative: Morbidly obese white female sitting up in a chair at the bedside, no current respiratory distress although patient is on 6 L nasal cannula. Appears comfortable Exam Limitations: no limitations Resp normal respiratory effort, no retractions, no use of accessory muscles and clear to auscultation bilaterally Resp Narrative: Diffusely diminished but clear, body habitus may contribute Auscultation: Negative for crackles, rales, rhonchi or wheezes Cardio regular rate, regular rhythm, S1 normal heart sound, S2 normal heart sound, no murmurs, no rub, no gallops, no clicks and no JVD GI normal to inspection, nondistended, normoactive bowel sounds, soft to palpation, non-tender and non-distended; Negative for hepatosplenomegaly Extremity normal to inspection and no clubbing, cyanosis or edema Peripheral Pulses: Yes pulses 2+ throughout Neuro oriented x3, moves all extremities and no focal motor deficits Neuro Narrative: Voice is somewhat hoarse with speaking but speech is otherwise normal Sensorium / Orientation: awake and alert Psych affect normal Assessment & Plan Assessment/Plan (1) Pneumonia due to COVID-19 virus: (2) Hypoxia: PLAN: Acute hypoxic respiratory failure secondary to COVID-19 pneumonia -Continue supportive oxygenation -Patient is currently on 6 L nasal cannula with an SPO2 of 91 to 92% -Continue remdesivir day 2 of 5 -Continue Decadron day 2 of -Continue pulmonary toilet -Continue incentive spirometry -Pulmonary and infectious disease are following -Patient did not meet criteria for severe sepsis on admission -I suspect that her lactate was elevated related to her hypoxemia and she had no endorgan dysfunction other than respiratory distress -Patient is high risk for requiring intubation or increasing support for oxy genation and ventilation--> she is full code -Symptoms started on 01/28/2021 she will require quarantine until 02/17/2021 -She is willing to vaccinate once she is out of quarantine Mild leukopenia -Suspect related to acute Covid infection -Continue to monitor Hyperglycemia -No documented history of diabetes -Check a.m. hemoglobin A1c -Suspect markedly elevated secondary to Decadron use -Start Lantus 10 units at at bedtime Hypertension -Continue home medications DOLORES -Patient has been noncompliant at home with nocturnal Pap therapy -BiPAP at at bedtime and as needed here while hospitalized History of tobacco abuse -Patient may have underlying COPD but no PFTs available -Would recommend outpatient follow-up with pulmonary after discharge Morbid obesity -Complicates overall medical treatment, prognosis, and outcomes Charges/Coding Visit Charges Inpatient E&M: 87605 Subs Hosp L2
[2021-01-31] MEDS: Menthol/Lanolin/Calamine/Znox 113 GM Tube 1 APPLIC TOPICAL (22:25)
[2021-01-31 22:40] LABS: Bedside Glucose 312 mg/dL (70-110)
[2021-02-01] VITALS (24 sets, daily range): BP systolic 97–132; BP diastolic 41–63; PULSE 69–99; RESP 12–25; TEMP 36.2–36.9; O2SAT 91–95
[2021-02-01] MEDS: Ipratropium/Albuterol Sulfate 3 ML AMPUL.NEB INHALATION ×6 (02:19→22:57)
[2021-02-01 04:08] LABS: Hematocrit 41.1 % (37-47); Hemoglobin 12.6 g/dL (12.0-15.0); Mean Corp Hgb Conc 30.7 g/dL (32-36); Mean Corpuscular Hgb 27.4 pg (27.0-32.0); Mean Corpuscular Volume 89.3 fL (81-99); Mean Platelet Vol. 9.8 fl (6.2-12.0); Platelet Count 261 K/mm3 (150-450); RBC Distribution Width CV 14.4 % (11.6-14.6); White Blood Count 5.3 K/mm3 (4.4-11.0)
[2021-02-01 04:48] LABS: ALB/GLOB Ratio 0.6 RATIO (0.9-2.4); AST(SGOT) 39 U/L (15-37); Alanine Aminotransfer ALT/SGPT 23 U/L (13-56); Albumin, Serum 2.2 g/dL (3.2-5.0); Alkaline Phosphatase 61 U/L (45-117); Anion Gap 5 (5-15); BUN 18 mg/dL (7-18); BUN/Creat Ratio 19.5 RATIO (10-20); Calcium,Total 7.7 mg/dL (8.5-10.1); Chloride 100 mmol/L (98-107); Creatinine, Serum 0.92 mg/dL (0.55-1.02); EST Glomerular Filtration Rate 64 mL/min (>60); Est Glom Filt Rate - Afr Amer 77 mL/min (>60); Estimated Creatinine Clearance 52.51 ml/min; Globulin 3.8 g/dL (2.2-4.2); Glucose 293 mg/dL (74-106); Potassium 3.6 mmol/L (3.5-5.1); Sodium Level 139 mmol/L (136-145)
[2021-02-01] MEDS: Levothyroxine 100 MCG Tablet PO (05:46)
[2021-02-01] MEDS: 0.9% Saline Lock 10 ML Syringe IV ×2 (05:49→09:51)
--- NOTE | 2021-02-01 07:25 | PCM.PN.INT ---
Assessment & Plan Assessment/Plan (1) Pneumonia due to COVID-19 virus: PLAN: RECOMMENDATIONS: 1. Wean supplemental oxygen as tolerated. 2. Continue remdesivir and Decadron as ordered to complete treatment courses. 3. Continue twice daily Lovenox. 4. Continue bronchodilator therapy. 5. Continue empiric BiPAP therapy, at a minimum, with naps and nightly. 6. Encourage incentive spirometer use and mobilize patient as tolerated. IMPRESSIONS: 1. Acute on chronic hypoxemic respiratory failure secondary to COVID-19 pneumonia The patient is unvaccinated and presented with less than 1 week of respiratory symptoms related to COVID-19 pneumonia. She does have a baseline 3 L/min oxygen requirement but is currently requiring an escalation in her flow rate to 6 L/min. She has already been started on remdesivir and Decadron. These medications will be continued without change. Plan to continue to wean supplemental oxygen as tolerated to maintain saturations at or above 90%. Encourage incentive spirometer use and mobilize patient as tolerated. 2. History of obstructive sleep apnea, noncompliant with nocturnal Pap therapy Recommend empiric use of BiPAP therapy, at a minimum, with naps and nightly. 3. History of tobacco dependency in remission/morbid obesity/self-reported history of CHF Complicates care, management, recovery and prognosis. Continue home medications as indicated. Physical therapy to work with the patient. This note was generated with [employer] dictation software. It may contain incorrect words, spelling, and punctuation that were not noted in checking the note before signing. Subjective Subjective The patient was seen and examined at the bedside this morning. Events from the last 24 hours have been reviewed. The patient did well overnight and tolerated BiPAP without issue. Prior to being placed on nocturnal BiPAP therapy, the patient was maintaining appropriate oxygen saturations on 6 L/min. The patient denies any shortness of breath this morning. Objective Data Objective Data The patient's most recent lab work, culture data and imaging studies have all been personally reviewed. Rapid coronavirus antigen testing was positive on January 30. Respiratory viral panel was negative. Sputum culture is pending. Strep and urine Legionella antigens were negative. Vital Signs: Vital Signs Temp Pulse Resp BP Pulse Ox 97.1 F L 79 15 113/63 94 02/01/21 03:45 02/01/21 07:16 02/01/21 07:16 02/01/21 03:45 02/01/21 07:16 Oxygen Flow Rate (L/min) 8 Oxygen Delivery Method Nasal Cannula Weight: 139.5 kg Body Mass Index (BMI) 49.6 Intake & Output: Intake and Output for Last 24 Hours 01/30/21 01/31/21 02/01/21 23:59 23:59 23:59 Intake Total 1210 / 1210 450 / 450 Output Total 2275 / 2275 Balance -1065 / -1065 450 / 450 Medical Nutrition Assessment Dietitian: Nutrition Therapy Diagnosis Start: 01/31/21 09:59 Freq: Status: Active Protocol: Document 01/31/21 10:06 AG (Rec: 01/31/21 10:07 [id number]) Nutrition Malnutrition Evidence of Malnutrition Exists No Clinical Problem Altered Nutrient-Related Laboratory Values Etiology r/t steroid administration Signs/Symptoms as evidenced by hyperglycemia (glucose 225mg/dL) Status Active Problem Recommendation Dietitian Recommendations/Changes continue sodium restricted diet. Recommend fluid restriction as indicated. Lab / Micro Data Attestation: I reviewed the patient's lab results. Result Diagrams: 02/01/21 03:55 02/01/21 03:55 Labs: Laboratory Results - last 24 hr 01/31/21 05:35: Diff Path Review Reviewed 01/31/21 22:23: POC Glucose 312 H 02/01/21 03:55: WBC 5.3, RBC 4.60, Hgb 12.6, Hct 41.1, MCV 89.3, MCH 27.4, MCHC 30.7 L, RDW Std Deviation 47.0 H, RDW Coeff of Mike 14.4, Plt Count 261, MPV 9.8 02/01/21 03:55: Sodium 139, Potassium 3.6, Chloride 100, Carbon Dioxide 34.0 H, Anion Gap 5, BUN 18, Creatinine 0.92, Estim Creat Clear Calc 52.51, Est GFR (MDRD) Af Amer 77, Est GFR (MDRD) Non-Af 64, BUN/Creatinine Ratio 19.5, Glucose 293 H, Calcium 7.7 L, Total Bilirubin 0.60, AST 39 H, ALT 23, Alkaline Phosphatase 61, Total Protein 6.0 L, Albumin 2.2 L, Globulin 3.8, Albumin/Globulin Ratio 0.6 L Micro: Microbiology 01/31/21 01:25 Sputum, Expectorated/Coughed Gram Stain - Final 01/30/21 23:40 Mucosa - Nasopharyngeal Respiratory Panel (PCR) - Final 01/31/21 01:25 Urine, Clean Catch Legionella Antigen - Final 01/31/21 01:25 Urine, Clean Catch Streptococcus pneumoniae Antigen (M - Final 01/30/21 19:06 Mucosa - Nose SARS-CoV-2 Antigen (Rapid) - Final SARS-CoV-2 (COVID 19) Physical Exam Const alert, oriented x3 and no apparent distress Constitutional Narrative: Sitting in bedside recliner. General Appearance: cooperative and on BiPAP Nutritional Appearance: morbidly obese HEENT normocephalic, head/scalp atraumatic and moist oral mucous membranes Eyes PERRL, EOMs intact bilaterally and conjunctivae normal Neck supple General: trachea midline Resp normal respiratory effort and no use of accessory muscles Auscultation: diminished lung sounds; Negative for rales, rhonchi or wheezes Cardio regular rate and regular rhythm GI normal to inspection, nondistended, normoactive bowel sounds Extremity General Extremity: edema bilateral lower extremity; Negative for clubbing Skin no rashes or lesions noted Neuro CN's II-XII intact bilaterally and no focal motor deficits Psych cooperative and affect normal Charges/Coding Visit Charges Inpatient E&M: 59859 Subs Hosp L2
[2021-02-01 09:19] LABS: Hemoglobin A1c 6.5 % (3.8-5.6)
[2021-02-01] MEDS: Menthol/Lanolin/Calamine/Znox 113 GM Tube 1 APPLIC TOPICAL ×2 (09:49→21:25)
[2021-02-01] MEDS: DULoxetine Hcl 60 MG Capsule PO (09:49)
[2021-02-01] MEDS: dexAMETHasone 10 MG/ML Vial 6 MG IV (09:49)
[2021-02-01] MEDS: Potassium Chloride Oral Tablet 20 MEQ PO (09:50)
[2021-02-01] MEDS: Furosemide 40 MG/4 ML Vial IV (09:50)
[2021-02-01] MEDS: Enoxaparin 40 MG/0.4 ML Syringe SC ×2 (09:50→21:22)
[2021-02-01] MEDS: Oxybutynin 5 MG Tablet PO (09:50)
[2021-02-01] MEDS: Fenofibrate 48 MG Tablet PO (09:51)
[2021-02-01] MEDS: guaiFENesin 1,200 MG Tablet 1200 MG PO ×2 (09:51→21:22)
[2021-02-01 10:31] LABS: Bedside Glucose 246 mg/dL (70-110)
[2021-02-01 12:40] LABS: Bedside Glucose 260 mg/dL (70-110)
[2021-02-01] MEDS: Insulin Lispro 100 UNIT/ML INSULN.PEN SC ×2 (13:05→15:57)
[2021-02-01 16:11] LABS: Bedside Glucose 332 mg/dL (70-110)
--- NOTE | 2021-02-01 16:14 | PN.HOSP_ITS ---
Subjective Subjective Patient reports she feels about the same. She was able to wear the BiPAP through the night and states that helped with her respiratory status. She has required up titration in the amount of oxygen she is requiring now to 8 L heated high flow. Objective Data Objective Data Vital Signs: Vital Signs Temp Pulse Resp BP Pulse Ox 98.1 F 84 24 H 114/50 L 93 02/01/21 15:07 02/01/21 15:15 02/01/21 15:07 02/01/21 15:07 02/01/21 15:07 Oxygen Flow Rate (L/min) 8 Oxygen Delivery Method Nasal Cannula Weight: 139.5 kg Body Mass Index (BMI) 49.6 Intake & Output: Intake and Output for Last 24 Hours 01/30/21 01/31/21 02/01/21 23:59 23:59 23:59 Intake Total 1210 / 1210 690 / 690 Output Total 2275 / 2275 1100 / 1100 Balance -1065 / -1065 -410 / -410 Medical Nutrition Assessment Dietitian: Nutrition Therapy Diagnosis Start: 01/31/21 09:59 Freq: Status: Active Protocol: Document 01/31/21 10:06 (Rec: 01/31/21 10:07 [id number]) Nutrition Malnutrition Evidence of Malnutrition Exists No Clinical Problem Altered Nutrient-Related Laboratory Values Etiology r/t steroid administration Signs/Symptoms as evidenced by hyperglycemia (glucose 225mg/dL) Status Active Problem Recommendation Dietitian Recommendations/Changes continue sodium restricted diet. Recommend fluid restriction as indicated. Lab / Micro Data Result Diagrams: 02/01/21 03:55 02/01/21 03:55 Labs: Laboratory Results - last 24 hr 01/31/21 22:23: POC Glucose 312 H 02/01/21 03:55: WBC 5.3, RBC 4.60, Hgb 12.6, Hct 41.1, MCV 89.3, MCH 27.4, MCHC 30.7 L, RDW Std Deviation 47.0 H, RDW Coeff of Mike 14.4, Plt Count 261, MPV 9.8 02/01/21 03:55: Sodium 139, Potassium 3.6, Chloride 100, Carbon Dioxide 34.0 H, Anion Gap 5, BUN 18, Creatinine 0.92, Estim Creat Clear Calc 52.51, Est GFR (MDRD) Af Amer 77, Est GFR (MDRD) Non-Af 64, BUN/Creatinine Ratio 19.5, Glucose 293 H, Calcium 7.7 L, Total Bilirubin 0.60, AST 39 H, ALT 23, Alkaline Phosphatase 61, Total Protein 6.0 L, Albumin 2.2 L, Globulin 3.8, Albumin/ Globulin Ratio 0.6 L 02/01/21 03:55: Hemoglobin A1c 6.5 H 02/01/21 09:14: POC Glucose 246 H 02/01/21 12:33: POC Glucose 260 H 02/01/21 15:56: POC Glucose 332 H Micro: Microbiology 01/31/21 01:25 Sputum, Expectorated/Coughed Gram Stain - Final 01/31/21 01:25 Sputum, Expectorated/Coughed Respiratory Culture - Preliminary Staphylococcus aureus GNR Possible Haemophilus sp. 01/30/21 23:40 Mucosa - Nasopharyngeal Respiratory Panel (PCR) - Final 01/31/21 01:25 Urine, Clean Catch Legionella Antigen - Final 01/31/21 01:25 Urine, Clean Catch Streptococcus pneumoniae Antigen (M - Final 01/30/21 19:06 Mucosa - Nose SARS-CoV-2 Antigen (Rapid) - Final SARS-CoV-2 (COVID 19) Physical Exam Const alert, oriented x3 and no apparent distress Constitutional Narrative: Morbidly obese white female sitting up in chair at the bedside, no signs of respiratory distress, nontoxic-appearing Exam Limitations: no limitations Resp normal respiratory effort, no retractions, no use of accessory muscles and clear to auscultation bilaterally Resp Narrative: Diffusely diminished but clear Auscultation: Negative for crackles, rales, rhonchi or wheezes Cardio regular rate, regular rhythm, S1 normal heart sound, S2 normal heart sound, no murmurs, no rub, no gallops, no clicks and no JVD Cardio Narrative: Distant heart tones GI normal to inspection, nondistended, normoactive bowel sounds, soft to palpation, non-tender and non-distended Extremity Extremity Narrative: Trace bilateral lower extremity edema General Extremity: edema Peripheral Pulses: Yes pulses 2+ throughout Skin no wounds, skin turgor normal, no jaundice, no petechiae and no mottling Skin Narrative: Bilateral lower extremity dry skin with wrinkles Neuro oriented x3, moves all extremities and no focal motor deficits Neuro Narrative: Patient with laryngitis at this time but able to communicate Sensorium / Orientation: awake and alert Assessment & Plan Assessment/Plan (1) Pneumonia due to COVID-19 virus: (2) Hypoxia: PLAN: Acute hypoxic respiratory failure secondary to COVID-19 pneumonia -Continue supportive oxygenation -Patient is currently on 6 L nasal cannula with an SPO2 of 91 to 92% -Continue remdesivir day 3 of 5 -Continue Decadron day 3 of 10 -Continue pulmonary toilet -Continue incentive spirometry -Pulmonary and infectious disease are following -Patient did not meet criteria for severe sepsis on admission -I suspect that her lactate was elevated related to her hypoxemia and she had no end organ dysfunction other than respiratory distress -Patient is high risk for requiring intubation or increasing support for oxygenation and ventilation--> she is full code -Symptoms started on 01/28/2021 she will require quarantine until 02/17/2021 -She is willing to vaccinate once she is out of quarantine Mild leukopenia -resolved DM-2 -No documented history of diabetes -Hemoglobin A1c was 6.5 she does give her diagnosis of diabetes -Suspect markedly elevated secondary to Decadron use -But sugars were still elevated with initiation of Lantus last night -Increase Lantus 10 units at at bedtime -Continue Accu-Cheks -SSI Hypertension -Continue home medications DOLORES -Patient has been noncompliant at home with nocturnal Pap therapy -BiPAP at at bedtime and as needed here while hospitalized -Patient was compliant with CPAP last night History of tobacco abuse -Patient may have underlying COPD but no PFTs available -Would recommend outpatient follow-up with pulmonary after discharge Morbid obesity -Complicates overall medical treatment, prognosis, and outcomes DVT prophylaxis -Lovenox CODE STATUS -Full code Charges/Coding Visit Charges Inpatient E&M: 67977 Subs Hosp L2
--- NOTE | 2021-02-01 17:57 | CM.ED ---
SW Note Referral Source: Stable Manager Referral Reason: Patient requested HCPOA Patient reports she wants her daughter to be POA, per CM. Patient is in COVID precautions so social insurance analyst provided patient with HCPOA via RN. SW remains available if needs arise. Plan: Provided HCPOA information Araceli GONZALEZ
--- NOTE | 2021-02-01 20:55 | CM.ED ---
OSCAR Note Referral Source: CM bench loom weaver Reason: Follow up to providing patient with HCPOA OSCAR called patient's daughter, Ana Luisa. SW introduced self and explained that patient had received HCPOA today and that patient can complete the paperwork and sign in the hospital or outside the hospital. Ana Luisa said that she would like patient to do the paperwork while in the hospital. Ana Luisa said that patient does not read. Ana Luisa said that someone would also need to help patient with completion of the paperwork. OSCAR will updated ICU SW. Ana Luisa said that patient resides in a home and she would like patient to get a shower and she inquired as to how to get a shower in the home. Ana Luisa said that her mother has an bathtub but no shower currently. OSCAR referred Ana Luisa to [facility] in [place] and provided her with the phone number. OSCAR advised that Ana Luisa could call the agency and request an in home assessment to determine if patient qualifies for any services. Ana Luisa said that patient own her own home. Ana Luisa said that she promised patient that she would never go to a SNF (long term facility) and stated that she will take patient home before patient goes to a SNF. Ana Luisa said that her family members are calling her today and calling Ana Luisa names and Ana Luisa said I don't want them calling up there and getting mom upset.. I want her to be calm. Ana Luisa said that she wants herself, Ana Luisa, patient's best friend Veronica Garcia and patient's , [place] to be the only ones that can be provided with information. Ana Luisa said that she talked to the RN about this today but she could not recall how to proceed with the information that the RN provided her. OSCAR encouraged patient to speak to social insurance analyst and this singer songwriter will also update SW. Ana Luisa said when she gets out we are getting her to do a living will. OSCAR explained that patient could do a living will in the hospital and Ana Luisa stated she wanted to get that settled with the house and it became apparent to this singer songwriter that Tracyjeramy was referring to Legal document will for possessions and this singer songwriter advised that the hospital does not do that just LIVING paul that speak to patients healthcare desires. OSCAR again will updated ICU social insurance analyst about this. Ana Luisa reports no other issues or concerns. SW remains available. Plan: Emotional support provided to patient's family, Ana Luisa GONZALEZ
[2021-02-01] MEDS: Atorvastatin Calcium 40 MG Tablet PO (21:22)
[2021-02-01 21:41] LABS: Bedside Glucose 282 mg/dL (70-110)
[2021-02-02] VITALS (22 sets, daily range): BP systolic 117–159; BP diastolic 58–64; PULSE 64–86; RESP 12–69; TEMP 36.2–37.2; O2SAT 93–97
[2021-02-02] MEDS: Ipratropium/Albuterol Sulfate 3 ML AMPUL.NEB INHALATION ×5 (02:08→23:17)
[2021-02-02 04:44] LABS: Hematocrit 40.5 % (37-47); Hemoglobin 12.5 g/dL (12.0-15.0); Mean Corp Hgb Conc 30.9 g/dL (32-36); Mean Corpuscular Hgb 27.2 pg (27.0-32.0); Mean Corpuscular Volume 88.2 fL (81-99); Mean Platelet Vol. 9.6 fl (6.2-12.0); Platelet Count 295 K/mm3 (150-450); RBC Distribution Width CV 14.2 % (11.6-14.6); RBC Distribution Width SD 45.4 fl (35.1-43.9); Red Blood Count 4.59 M/mm3 (4.2-5.4); White Blood Count 6.3 K/mm3 (4.4-11.0)
[2021-02-02 05:08] LABS: ALB/GLOB Ratio 0.6 RATIO (0.9-2.4); AST(SGOT) 38 U/L (15-37); Alanine Aminotransfer ALT/SGPT 26 U/L (13-56); Albumin, Serum 2.3 g/dL (3.2-5.0); Alkaline Phosphatase 57 U/L (45-117); Anion Gap 6 (5-15); BUN 28 mg/dL (7-18); BUN/Creat Ratio 32.8 RATIO (10-20); Calcium,Total 7.9 mg/dL (8.5-10.1); Chloride 101 mmol/L (98-107); Creatinine, Serum 0.85 mg/dL (0.55-1.02); EST Glomerular Filtration Rate 70 mL/min (>60); Est Glom Filt Rate - Afr Amer 84 mL/min (>60); Estimated Creatinine Clearance 56.83 ml/min; Globulin 3.6 g/dL (2.2-4.2); Glucose 226 mg/dL (74-106); Potassium 3.5 mmol/L (3.5-5.1); Protein, Total 5.9 g/dL (6.4-8.2); Sodium Level 140 mmol/L (136-145)
--- NOTE | 2021-02-02 06:41 | PCM.PN.INT ---
Assessment & Plan Assessment/Plan (1) Pneumonia due to COVID-19 virus: PLAN: RECOMMENDATIONS: 1. Wean supplemental oxygen as tolerated. 2. Continue remdesivir and Decadron as ordered to complete treatment courses. 3. Continue twice daily Lovenox. 4. Continue bronchodilator therapy. 5. Continue empiric BiPAP therapy, at a minimum, with naps and nightly. 6. Start antimicrobials this morning, given sputum culture results. 7. Encourage incentive spirometer use and mobilize patient as tolerated. IMPRESSIONS: 1. Acute on chronic hypoxemic respiratory failure secondary to COVID-19 pneumonia The patient is unvaccinated and presented with less than 1 week of respiratory symptoms related to COVID-19 pneumonia. She does have a baseline 3 L/min oxygen requirement. She has already been started on remdesivir and Decadron. These medications will be continued without change. Plan to continue to wean supplemental oxygen as tolerated to maintain saturations at or above 90%. Encourage incentive spirometer use and mobilize patient as tolerated. Given the patient's sputum culture results, she will also be started on broad-spectrum antimicrobials. 2. History of obstructive sleep apnea, noncompliant with nocturnal Pap therapy Recommend empiric use of BiPAP therapy, at a minimum, with naps and nightly. 3. History of tobacco dependency in remission/morbid obesity/self-reported history of CHF Complicates care, management, recovery and prognosis. Continue home medications as indicated. Physical therapy to work with the patient. This note was generated with [employer] dictation software. It may contain incorrect words, spelling, and punctuation that were not noted in checking the note before signing. Subjective Subjective The patient was seen and examined at the bedside this morning. Events from the last 24 hours have been reviewed. The patient is currently afebrile, hemodynamically stable and maintaining appropriate oxygen saturations on 8 L/min via nasal cannula. The patient once again tolerated empiric BiPAP therapy overnight. She is documented to be overall net -1.6 L for the hospital admission. The patient remains on remdesivir, Decadron, twice daily Lovenox and scheduled IV Lasix. Creatinine and liver function are stable. Objective Data Objective Data The patient's most recent lab work, culture data and imaging studies have all been personally reviewed. Rapid coronavirus antigen testing was positive on January 30. Respiratory viral panel was negative. Strep and urine Legionella antigens were negative. Sputum cultures demonstrating growth of 3+ staph aureus and 3+ gram-negative brittany, possible Haemophilus. Vital Signs: Vital Signs Temp Pulse Resp BP Pulse Ox 98.9 F 64 23 H 126/60 H 96 02/02/21 04:56 02/02/21 05:44 02/02/21 05:10 02/02/21 04:56 02/02/21 05:10 Oxygen Flow Rate (L/min) 9 Oxygen Delivery Method Nasal Cannula Weight: 139.5 kg Body Mass Index (BMI) 49.6 Intake & Output: Intake and Output for Last 24 Hours 01/31/21 02/01/21 02/02/21 23:59 23:59 23:59 Intake Total 1210 / 1210 940 / 940 Output Total 2275 / 2275 1500 / 1500 Balance -1065 / -1065 -560 / -560 Medical Nutrition Assessment Dietitian: Nutrition Therapy Diagnosis Start: 01/31/21 09:59 Freq: Status: Active Protocol: Document 01/31/21 10:06 (Rec: 01/31/21 10:07 [id number]) Nutrition Malnutrition Evidence of Malnutrition Exists No Clinical Problem Altered Nutrient-Related Laboratory Values Etiology r/t steroid administration Signs/Symptoms as evidenced by hyperglycemia (glucose 225mg/dL) Status Active Problem Recommendation Dietitian Recommendations/Changes continue sodium restricted diet. Recommend fluid restriction as indicated. Lab / Micro Data Attestation: I reviewed the patient's lab results. Result Diagrams: 02/02/21 04:30 02/02/21 04:30 Labs: Laboratory Results - last 24 hr 02/01/21 03:55: Hemoglobin A1c 6.5 H 02/01/21 09:14: POC Glucose 246 H 02/01/21 12:33: POC Glucose 260 H 02/01/21 15:56: POC Glucose 332 H 02/01/21 21:20: POC Glucose 282 H 02/02/21 04:30: WBC 6.3, RBC 4.59, Hgb 12.5, Hct 40.5, MCV 88.2, MCH 27.2, MCHC 30.9 L, RDW Std Deviation 45.4 H, RDW Coeff of Mike 14.2, Plt Count 295, MPV 9.6 02/02/21 04:30: Sodium 140, Potassium 3.5, Chloride 101, Carbon Dioxide 33.0 H, Anion Gap 6, BUN 28 H, Creatinine 0.85, Estim Creat Clear Calc 56.83, Est GFR (MDRD) Af Amer 84, Est GFR (MDRD) Non-Af 70, BUN/Creatinine Ratio 32.8 H, Glucose 226 H, Calcium 7.9 L, Total Bilirubin 0.60, AST 38 H, ALT 26, Alkaline Phosphatase 57, Total Protein 5.9 L, Albumin 2.3 L, Globulin 3.6, Albumin/Globulin Ratio 0.6 L Micro: Microbiology 01/31/21 01:25 Sputum, Expectorated/Coughed Gram Stain - Final 01/31/21 01:25 Sputum, Expectorated/Coughed Respiratory Culture - Preliminary Staphylococcus aureus GNR Possible Haemophilus sp. 01/30/21 23:40 Mucosa - Nasopharyngeal Respiratory Panel (PCR) - Final 01/31/21 01:25 Urine, Clean Catch Legionella Antigen - Final 01/31/21 01:25 Urine, Clean Catch Streptococcus pneumoniae Antigen (M - Final 01/30/21 19:06 Mucosa - Nose SARS-CoV-2 Antigen (Rapid) - Final SARS-CoV-2 (COVID 19) Physical Exam Const alert, oriented x3 and no apparent distress Constitutional Narrative: Sitting in bedside recliner. General Appearance: cooperative and on BiPAP Nutritional Appearance: morbidly obese HEENT normocephalic, head/scalp atraumatic and moist oral mucous membranes Eyes PERRL, EOMs intact bilaterally and conjunctivae normal Neck supple General: trachea midline Resp normal respiratory effort and no use of accessory muscles Auscultation: diminished lung sounds; Negative for rales, rhonchi or wheezes Cardio regular rate and regular rhythm GI normal to inspection, nondistended, normoactive bowel sounds Extremity General Extremity: edema bilateral lower extremity; Negative for clubbing Skin no rashes or lesions noted Neuro CN's II-XII intact bilaterally and no focal motor deficits Psych cooperative and affect normal Charges/Coding Visit Charges Inpatient E&M: 01903 Subs Hosp L2
[2021-02-02] MEDS: Levothyroxine 100 MCG Tablet PO (06:46)
[2021-02-02] MEDS: Insulin Lispro 100 UNIT/ML INSULN.PEN SC ×3 (09:04→16:36)
[2021-02-02] MEDS: 0.9% Saline Lock 10 ML Syringe IV ×2 (09:04→14:19)
[2021-02-02] MEDS: Enoxaparin 40 MG/0.4 ML Syringe SC ×2 (09:06→20:51)
[2021-02-02] MEDS: Potassium Chloride Oral Tablet 20 MEQ PO (09:07)
[2021-02-02] MEDS: Oxybutynin 5 MG Tablet PO (09:07)
[2021-02-02] MEDS: Fenofibrate 48 MG Tablet PO (09:07)
[2021-02-02] MEDS: DULoxetine Hcl 60 MG Capsule PO (09:07)
[2021-02-02] MEDS: guaiFENesin 1,200 MG Tablet 1200 MG PO ×2 (09:07→20:51)
[2021-02-02] MEDS: Furosemide 40 MG/4 ML Vial IV (09:08)
[2021-02-02] MEDS: Menthol/Lanolin/Calamine/Znox 113 GM Tube 1 APPLIC TOPICAL ×2 (09:08→20:52)
[2021-02-02] MEDS: dexAMETHasone 10 MG/ML Vial 6 MG IV (09:08)
--- NOTE | 2021-02-02 10:02 | PCM.PN.HOSP ---
Subjective Subjective Patient states she is tired. She is now requiring 9 L of heated high flow nasal cannula. She denies any significant shortness of breath and states that her cough has improved some. Objective Data Objective Data Vital Signs: Vital Signs Temp Pulse Resp BP Pulse Ox 97.8 F 84 16 122/60 H 93 02/02/21 08:00 02/02/21 08:00 02/02/21 08:00 02/02/21 08:00 02/02/21 08:00 Oxygen Flow Rate (L/min) 8 Oxygen Delivery Method Nasal Cannula Weight: 139.5 kg Body Mass Index (BMI) 49.6 Intake & Output: Intake and Output for Last 24 Hours 01/31/21 02/01/21 02/02/21 23:59 23:59 23:59 Intake Total 1210 / 1210 940 / 940 100 / 100 Output Total 2275 / 2275 1500 / 1500 400 / 400 Balance -1065 / -1065 -560 / -560 -300 / -300 Medical Nutrition Assessment Dietitian: Nutrition Therapy Diagnosis Start: 01/31/21 09:59 Freq: Status: Active Protocol: Document 01/31/21 10:06 (Rec: 01/31/21 10:07 [id number]) Nutrition Malnutrition Evidence of Malnutrition Exists No Clinical Problem Altered Nutrient-Related Laboratory Values Etiology r/t steroid administration Signs/Symptoms as evidenced by hyperglycemia (glucose 225mg/dL) Status Active Problem Recommendation Dietitian Recommendations/Changes continue sodium restricted diet. Recommend fluid restriction as indicated. Lab / Micro Data Result Diagrams: 02/02/21 04:30 02/02/21 04:30 Labs: Laboratory Results - last 24 hr 02/01/21 09:14: POC Glucose 246 H 02/01/21 12:33: POC Glucose 260 H 02/01/21 15:56: POC Glucose 332 H 02/01/21 21:20: POC Glucose 282 H 02/02/21 04:30: WBC 6.3, RBC 4.59, Hgb 12.5, Hct 40.5, MCV 88.2, MCH 27.2, MCHC 30.9 L, RDW Std Deviation 45.4 H, RDW Coeff of Mike 14.2, Plt Count 295, MPV 9.6 02/02/21 04:30: Sodium 140, Potassium 3.5, Chloride 101, Carbon Dioxide 33.0 H, Anion Gap 6, BUN 28 H, Creatinine 0.85, Estim Creat Clear Calc 56.83, Est GFR (MDRD) Af Amer 84, Est GFR (MDRD) Non-Af 70, BUN/Creatinine Ratio 32.8 H, Glucose 226 H, Calcium 7.9 L, Total Bilirubin 0.60, AST 38 H, ALT 26, Alkaline Phosphatase 57, Total Protein 5.9 L, Albumin 2.3 L, Globulin 3.6, Albumin/Globulin Ratio 0.6 L Micro: Microbiology 01/31/21 01:25 Sputum, Expectorated/Coughed Gram Stain - Final 01/31/21 01:25 Sputum, Expectorated/Coughed Respiratory Culture - Preliminary Staphylococcus aureus GNR Possible Haemophilus sp. 01/30/21 23:40 Mucosa - Nasopharyngeal Respiratory Panel (PCR) - Final 01/31/21 01:25 Urine, Clean Catch Legionella Antigen - Final 01/31/21 01:25 Urine, Clean Catch Streptococcus pneumoniae Antigen (M - Final 01/30/21 19:06 Mucosa - Nose SARS-CoV-2 Antigen (Rapid) - Final SARS-CoV-2 (COVID 19) Physical Exam Const alert and oriented x3 Constitutional Narrative: Older morbidly obese white female sitting up in a chair sleeping but awakens easily, no signs of respiratory distress and nontoxic-appearing although appears fatigued Exam Limitations: no limitations HEENT head/scalp atraumatic HEENT Narrative: No thrush, Mallampati 3 Head and Scalp: normocephalic Resp normal respiratory effort, no retractions, no use of accessory muscles and clear to auscultation bilaterally Resp Narrative: Diffusely diminished but clear Auscultation: Negative for crackles, rales, rhonchi or wheezes Cardio regular rate, regular rhythm, S1 normal heart sound, S2 normal heart sound, no murmurs, no rub, no gallops, no clicks and no JVD GI normal to inspection, nondistended, normoactive bowel sounds, soft to palpation, non-tender and non-distended Extremity Extremity Narrative: Trace bilateral lower extremity edema although by appearance is suggestive of worse edema in the past, no clubbing or cyanosis General Extremity: edema Peripheral Pulses: Yes pulses 2+ throughout Neuro oriented x3, moves all extremities and no focal motor deficits Sensorium / Orientation: awake and alert Assessment & Plan Assessment/Plan (1) Acute respiratory failure with hypoxia: (2) Pneumonia due to COVID-19 virus: (3) Diabetes mellitus type 2 in obese: PLAN: Acute hypoxic respiratory failure secondary to COVID-19 pneumonia -Continue supportive oxygenation -Patient is currently on 8 L nasal cannula with an SPO2 of 93 to 94% -Continue remdesivir day 4 of 5 -Continue Decadron day 4 of 10 -Continue pulmonary toilet -Continue incentive spirometry -Pulmonary and infectious disease are following -Patient did not meet criteria for severe sepsis on admission -I suspect that her lactate was elevated related to her hypoxemia and she had no end organ dysfunction other than respiratory distress -Patient is high risk for requiring intubation or increasing support for oxygenation and ventilation--> she is full code -Symptoms started on 01/28/2021 she will require quarantine until 02/17/2021 -She is willing to vaccinate once she is out of quarantine DM-2 -No documented history of diabetes -Hemoglobin A1c was 6.5 she does give her diagnosis of diabetes -Suspect markedly elevated secondary to Decadron use -But sugars were still elevated with initiation of Lantus last night -Increase Lantus 26 units at at bedtime as fasting sugars are still greater than 200 -Continue Accu-Cheks -SSI -We will need to review her diagnosis of diabetes with her and diet changes once she is feeling better from a medical standpoint Hypertension -Continue home medications DOLORES -Patient has been noncompliant at home with nocturnal Pap therapy -BiPAP at at bedtime and as needed here while hospitalized -Patient was compliant with CPAP again last night History of tobacco abuse -Patient may have underlying COPD but no PFTs available -Would recommend outpatient follow-up with pulmonary after discharge Morbid obesity -Complicates overall medical treatment, prognosis, and outcomes Depression -Continue Cymbalta DVT prophylaxis -Lovenox CODE STATUS -Full code Charges/Coding Visit Charges Inpatient E&M: 07080 Subs Hosp L2
[2021-02-02 10:36] LABS: Bedside Glucose 199 mg/dL (70-110)
--- NOTE | 2021-02-02 10:47 | PCM.RX.CS ---
Consult Pharmacy has been consulted to manage selected antiobiotic: Vancomycin Type of Consult: New start Suspected Infection: Pneumonia Prior Doses of Antibiotics Received/Current Regimen: Received 2000mg iv x 1 in AM 02.02.21. Labs: Sodium 140 mmol/L (136-145) 02/02/21 04:30 Potassium 3.5 mmol/L (3.5-5.1) 02/02/21 04:30 Chloride 101 mmol/L (98-107) 02/02/21 04:30 Carbon Dioxide 33.0 mmol/L (21.0-32.0) H 02/02/21 04:30 Anion Gap 6 (5-15) 02/02/21 04:30 BUN 28 mg/dL (7-18) H 02/02/21 04:30 Creatinine 0.85 mg/dL (0.55-1.02) 02/02/21 04:30 Est GFR (MDRD) Af Amer 84 mL/min (>60) 02/02/21 04:30 Est GFR (MDRD) Non-Af 70 mL/min (>60) 02/02/21 04:30 BUN/Creatinine Ratio 32.8 RATIO (10-20) H 02/02/21 04:30 Glucose 226 mg/dL (74-106) H 02/02/21 04:30 Microbiology: Microbiology 01/31/21 01:25 Sputum, Expectorated/Coughed Gram Stain - Final 01/31/21 01:25 Sputum, Expectorated/Coughed Respiratory Culture - Preliminary Staphylococcus aureus GNR Possible Haemophilus sp. 01/30/21 23:40 Mucosa - Nasopharyngeal Respiratory Panel (PCR) - Final 01/31/21 01:25 Urine, Clean Catch Legionella Antigen - Final 01/31/21 01:25 Urine, Clean Catch Streptococcus pneumoniae Antigen (M - Final 01/30/21 19:06 Mucosa - Nose SARS-CoV-2 Antigen (Rapid) - Final SARS-CoV-2 (COVID 19) Weight used for dosin.5 kg Estimated Creatinine Clearance: ~88ml/min Goal Trough: 15-20 mcg/mL Pharmacy Plan for Drug Dosing: Will start dosing of 2000mg iv q12h based on renal function for adjusted body weight of 91.4kg. Trough level ordered for 02.03.21 before 4th total dose. Pharmacy Service will continue to monitor and adjust dosing as required. Follow-Up Labs: Trough Vancomycin - 8.16.21@2029 before 2100 dose
[2021-02-02 14:10] LABS: Bedside Glucose 199 mg/dL (70-110)
[2021-02-02 16:46] LABS: Bedside Glucose 228 mg/dL (70-110)
[2021-02-02] MEDS: Atorvastatin Calcium 40 MG Tablet PO (20:51)
[2021-02-02 22:31] LABS: Bedside Glucose 210 mg/dL (70-110)
[2021-02-03] VITALS (13 sets, daily range): BP systolic 125–157; BP diastolic 56–63; PULSE 63–79; RESP 12–22; TEMP 35.7–36.6; O2SAT 93–98
[2021-02-03] MEDS: Levothyroxine 100 MCG Tablet PO (05:37)
[2021-02-03 06:36] LABS: Bedside Glucose 135 mg/dL (70-110)
[2021-02-03] MEDS: Ipratropium/Albuterol Sulfate 3 ML AMPUL.NEB INHALATION ×4 (07:16→19:54)
[2021-02-03] MEDS: guaiFENesin 1,200 MG Tablet 1200 MG PO ×2 (09:26→21:41)
[2021-02-03] MEDS: Potassium Chloride Oral Tablet 20 MEQ PO (09:26)
[2021-02-03] MEDS: DULoxetine Hcl 60 MG Capsule PO (09:26)
[2021-02-03] MEDS: Enoxaparin 40 MG/0.4 ML Syringe SC ×2 (09:26→21:41)
[2021-02-03] MEDS: Furosemide 40 MG/4 ML Vial IV (09:27)
[2021-02-03] MEDS: dexAMETHasone 10 MG/ML Vial 6 MG IV (09:27)
[2021-02-03] MEDS: Fenofibrate 48 MG Tablet PO (09:28)
[2021-02-03] MEDS: 0.9% Saline Lock 10 ML Syringe IV (09:29)
[2021-02-03] MEDS: Oxybutynin 5 MG Tablet PO (09:29)
[2021-02-03] MEDS: Menthol/Lanolin/Calamine/Znox 113 GM Tube 1 APPLIC TOPICAL ×2 (09:29→21:41)
[2021-02-03 09:42] LABS: Hematocrit 43.6 % (37-47); Hemoglobin 13.1 g/dL (12.0-15.0); Mean Corpuscular Hgb 27.1 pg (27.0-32.0); Mean Corpuscular Volume 90.3 fL (81-99); Mean Platelet Vol. 9.5 fl (6.2-12.0); Platelet Count 289 K/mm3 (150-450); RBC Distribution Width CV 14.5 % (11.6-14.6); RBC Distribution Width SD 46.8 fl (35.1-43.9); Red Blood Count 4.83 M/mm3 (4.2-5.4)
[2021-02-03 09:58] LABS: ALB/GLOB Ratio 0.7 RATIO (0.9-2.4); AST(SGOT) 101 U/L (15-37); Alanine Aminotransfer ALT/SGPT 54 U/L (13-56); Albumin, Serum 2.5 g/dL (3.2-5.0); Alkaline Phosphatase 60 U/L (45-117); Anion Gap 5 (5-15); BUN 28 mg/dL (7-18); BUN/Creat Ratio 29.9 RATIO (10-20); Chloride 104 mmol/L (98-107); Creatinine, Serum 0.94 mg/dL (0.55-1.02); EST Glomerular Filtration Rate 63 mL/min (>60); Est Glom Filt Rate - Afr Amer 76 mL/min (>60); Estimated Creatinine Clearance 51.39 ml/min; Globulin 3.7 g/dL (2.2-4.2); Glucose 147 mg/dL (74-106); Potassium 3.3 mmol/L (3.5-5.1); Protein, Total 6.2 g/dL (6.4-8.2); Sodium Level 141 mmol/L (136-145)
[2021-02-03] MEDS: Insulin Lispro 100 UNIT/ML INSULN.PEN SC ×2 (12:19→18:20)
[2021-02-03 13:20] LABS: Bedside Glucose 196 mg/dL (70-110)
--- NOTE | 2021-02-03 13:35 | PN.CC_ITS ---
Assessment & Plan Assessment/Plan (1) Pneumonia due to COVID-19 virus: PLAN: RECOMMENDATIONS: 1. Wean supplemental oxygen as tolerated. 2. Continue remdesivir and Decadron as ordered to complete treatment courses. 3. Continue twice daily Lovenox. 4. Continue bronchodilator therapy. 5. Continue empiric BiPAP therapy, at a minimum, with naps and nightly. 6. Continue broad-spectrum antibiotics 7. Encourage incentive spirometer use and mobilize patient as tolerated. IMPRESSIONS: 1. Acute on chronic hypoxemic respiratory failure secondary to COVID-19, MRSA and H. influenzae pneumonia The patient is unvaccinated and presented with less than 1 week of respiratory symptoms related to COVID-19 pneumonia. She does have a baseline 3 L/min oxygen requirement. Complete courses of remdesivir and Decadron. These medications will be continued without change. Plan to continue to wean supplemental oxygen as tolerated to maintain saturations at or above 90%. Encourage incentive spirometer use and mobilize patient as tolerated. Patient does appear to have superimposed bacterial infection with MRSA and H. influenzae. Patient remains on broad-spectrum antibiotics. Anticipate some potential improvement from a bacterial pneumonia standpoint. COVID-19 therapy will be continued to complete the courses. Do not anticipate patient will be able to go home with the current supplemental oxygen demands. Given underlying lung disease, anticipate protracted hospital course. 2. History of obstructive sleep apnea, noncompliant with nocturnal Pap therapy Recommend empiric use of BiPAP therapy, at a minimum, with naps and nightly. 3. History of tobacco dependency in remission/morbid obesity/self-reported history of CHF Complicates care, management, recovery and prognosis. Continue home medications as indicated. Physical therapy to work with the patient. This note was generated with [employer] dictation software. It may contain incorrect words, spelling, and punctuation that were not noted in checking the note before signing. Subjective Subjective Patient did okay overnight. Patient has been tolerating 6 L nasal cannula. Patient does report a productive cough, but no chest pain. Patient feels subjectively improved compared to yesterday. Objective Data Objective Data Vital Signs: Vital Signs Temp Pulse Resp BP Pulse Ox 36.1 C L 73 20 H 129/58 H 93 02/03/21 09:22 02/03/21 09:22 02/03/21 11:03 02/03/21 09:22 02/03/21 09:22 Oxygen Flow Rate (L/min) 5 Oxygen Delivery Method Nasal Cannula Weight: 139.5 kg Body Mass Index (BMI) 49.6 Intake & Output: Intake and Output for Last 24 Hours 02/01/21 02/02/21 02/03/21 23:59 23:59 23:59 Intake Total 940 / 940 1760.00 / 1760.00 410 / 410 Output Total 1500 / 1500 1800 / 1800 300 / 300 Balance -560 / -560 -40.00 / -40.00 110 / 110 Medical Nutrition Assessment Dietitian: Malnutrition Criteria Met Start: 01/31/21 09:59 Freq: Status: Active Protocol: Document 01/31/21 10:06 (Rec: 01/31/21 10:07 [id number]) Nutrition Malnutrition Evidence of Malnutrition Exists No Clinical Problem Altered Nutrient-Related Laboratory Values Etiology r/t steroid administration Signs/Symptoms as evidenced by hyperglycemia (glucose 225mg/dL) Status Active Problem Recommendation Dietitian Recommendations/Changes continue sodium restricted diet. Recommend fluid restriction as indicated. Lab / Micro Data Result Diagrams: 02/03/21 09:25 02/03/21 09:25 Labs: Laboratory Results - last 24 hr 02/02/21 12:29: POC Glucose 199 H 02/02/21 16:32: POC Glucose 228 H 02/02/21 22:12: POC Glucose 210 H 02/03/21 06:31: POC Glucose 135 H 02/03/21 09:25: WBC 6.0, RBC 4.83, Hgb 13.1, Hct 43.6, MCV 90.3, MCH 27.1, MCHC 30.0 L, RDW Std Deviation 46.8 H, RDW Coeff of Mike 14.5, Plt Count 289, MPV 9.5 02/03/21 09:25: Sodium 141, Potassium 3.3 L, Chloride 104, Carbon Dioxide 32.0, Anion Gap 5, BUN 28 H, Creatinine 0.94, Estim Creat Clear Calc 51.39, Est GFR (MDRD) Af Amer 76, Est GFR (MDRD) Non-Af 63, BUN/Creatinine Ratio 29.9 H, Glucose 147 H, Calcium 8.0 L, Total Bilirubin 0.80, AST 101 H, ALT 54, Alkaline Phosphatase 60, Total Protein 6.2 L, Albumin 2.5 L, Globulin 3.7, Albumin/Globulin Ratio 0.7 L 02/03/21 12:58: POC Glucose 196 H Micro: Microbiology 01/31/21 01:25 Sputum, Expectorated/Coughed Gram Stain - Final 01/31/21 01:25 Sputum, Expectorated/Coughed Respiratory Culture - Final Meth. resistant Staph. aureus Haemophilus influenzae 01/30/21 23:40 Mucosa - Nasopharyngeal Respiratory Panel (PCR) - Final 01/31/21 01:25 Urine, Clean Catch Legionella Antigen - Final 01/31/21 01:25 Urine, Clean Catch Streptococcus pneumoniae Antigen (M - Final 01/30/21 19:06 Mucosa - Nose SARS-CoV-2 Antigen (Rapid) - Final SARS-CoV-2 (COVID 19) Physical Exam Const alert, oriented x3 and no apparent distress Constitutional Narrative: Sitting in bedside recliner. Nutritional Appearance: morbidly obese HEENT normocephalic Eyes PERRL, EOMs intact bilaterally, conjunctivae normal and no scleral icterus Neck full ROM and No nuchal rigidity Chest inspection of chest normal Chest: symmetrical chest wall rise Resp normal respiratory effort and no use of accessory muscles Auscultation: diminished lung sounds; Negative for rales, rhonchi or wheezes Cardio regular rate, regular rhythm, S1 normal heart sound, S2 normal heart sound, no murmurs, no rub and no gallops GI normal to inspection, nondistended, normoactive bowel sounds GI Narrative: Exam limited by body habitus Extremity General Extremity: edema bilateral (2+) lower extremity; Negative for clubbing or cyanosis Skin no rashes or lesions noted Neuro CN's II-XII intact bilaterally and no focal motor deficits Psych mental status grossly normal and thought process normal Charges/Coding Visit Charges Inpatient E&M: 37871 Subs Hosp L3
--- NOTE | 2021-02-03 15:34 | PCM.PN.ID ---
Physical Exam Narrative Feeling better, no fever, breathing improved, minimal sputum Const alert General Appearance: cooperative Resp clear to auscultation bilaterally Auscultation: diminished lung sounds Cardio regular rate and regular rhythm GI normal to inspection, nondistended, normoactive bowel sounds Skin no rashes or lesions noted ID ID: Route of nutrition/ use of supplements: [] Nutritional Intake: [] IV Site: [] Strong Catheter: [] Assessment & Plan Assessment/Plan (1) Pneumonia due to COVID-19 virus: PLAN: Sx started around 01/28/21. Unvaccinated. On 3L home O2. Encouraged her to get tested and quarantine. Both should get vaccine after past this. On dex/remdesivir. Sputum with MRSA and h.flu. Will narrow vanc/zosyn to po doxy for planned 1 week course. Will follow (2) Hypoxia:
--- NOTE | 2021-02-03 16:17 | PN.HOSP_ITS ---
Subjective Subjective Breathing well on 6 liters. Objective Data Objective Data Vital Signs: Vital Signs Temp Pulse Resp BP Pulse Ox 36.1 C L 79 20 H 129/58 H 97 02/03/21 09:22 02/03/21 15:32 02/03/21 15:32 02/03/21 09:22 02/03/21 15:32 Oxygen Flow Rate (L/min) 5 Oxygen Delivery Method Nasal Cannula Weight: 139.5 kg Body Mass Index (BMI) 49.6 Intake & Output: Intake and Output for Last 24 Hours 02/01/21 02/02/21 02/03/21 23:59 23:59 23:59 Intake Total 940 / 940 1760.00 / 1760.00 950 / 950 Output Total 1500 / 1500 1800 / 1800 300 / 300 Balance -560 / -560 -40.00 / -40.00 650 / 650 Medical Nutrition Assessment Dietitian: Malnutrition Criteria Met Start: 01/31/21 09:59 Freq: Status: Active Protocol: Document 01/31/21 10:06 (Rec: 01/31/21 10:07 [id number]) Nutrition Malnutrition Evidence of Malnutrition Exists No Clinical Problem Altered Nutrient-Related Laboratory Values Etiology r/t steroid administration Signs/Symptoms as evidenced by hyperglycemia (glucose 225mg/dL) Status Active Problem Recommendation Dietitian Recommendations/Changes continue sodium restricted diet. Recommend fluid restriction as indicated. Lab / Micro Data Result Diagrams: 02/03/21 09:25 02/03/21 09:25 Labs: Laboratory Results - last 24 hr 02/02/21 16:32: POC Glucose 228 H 02/02/21 22:12: POC Glucose 210 H 02/03/21 06:31: POC Glucose 135 H 02/03/21 09:25: WBC 6.0, RBC 4.83, Hgb 13.1, Hct 43.6, MCV 90.3, MCH 27.1, MCHC 30.0 L, RDW Std Deviation 46.8 H, RDW Coeff of Mike 14.5, Plt Count 289, MPV 9.5 02/03/21 09:25: Sodium 141, Potassium 3.3 L, Chloride 104, Carbon Dioxide 32.0, Anion Gap 5, BUN 28 H, Creatinine 0.94, Estim Creat Clear Calc 51.39, Est GFR (MDRD) Af Amer 76, Est GFR (MDRD) Non-Af 63, BUN/Creatinine Ratio 29.9 H, Glucose 147 H, Calcium 8.0 L, Total Bilirubin 0.80, AST 101 H, ALT 54, Alkaline Phosphatase 60, Total Protein 6.2 L, Albumin 2.5 L, Globulin 3.7, Albumin/Globulin Ratio 0.7 L 02/03/21 12:58: POC Glucose 196 H Micro: Microbiology 01/31/21 01:25 Sputum, Expectorated/Coughed Gram Stain - Final 01/31/21 01:25 Sputum, Expectorated/Coughed Respiratory Culture - Final Meth. resistant Staph. aureus Haemophilus influenzae 01/30/21 23:40 Mucosa - Nasopharyngeal Respiratory Panel (PCR) - Final 01/31/21 01:25 Urine, Clean Catch Legionella Antigen - Final 01/31/21 01:25 Urine, Clean Catch Streptococcus pneumoniae Antigen (M - Fi nal 01/30/21 19:06 Mucosa - Nose SARS-CoV-2 Antigen (Rapid) - Final SARS-CoV-2 (COVID 19) Physical Exam Const alert and oriented x3 Eyes PERRL Resp normal respiratory effort and no retractions Resp Narrative: coarse breath sounds bilaterally. Cardio regular rate, regular rhythm, S1 normal heart sound and S2 normal heart sound GI normal to inspection, nondistended, normoactive bowel sounds, soft to palpation, non-tender and non-distended Neuro Sensorium / Orientation: awake and alert Psych affect normal Assessment & Plan Assessment/Plan (1) Pneumonia due to COVID-19 virus: (2) Acute respiratory failure with hypoxia: (3) MRSA pneumonia: QUALIFIERS: Laterality: bilateral Lung location: unspecified part of lung Qualified Code(s): J15.212 - Pneumonia due to Methicillin resistant Staphylococcus aureus (4) Haemophilus influenzae pneumonia: QUALIFIERS: Laterality: bilateral Lung location: unspecified part of lung Qualified Code(s): J14 - Pneumonia due to Hemophilus influenzae PLAN: 1. Acute COVID-19 pneumonia On dexamethasone and remdesivir Patient vaccinated Onset of symptoms was January 28 and patient will need to quarantine through the . 2. Acute on chronic hypoxic respiratory failure Wean oxygen as tolerated. Baseline oxygen is 3 L nasal cannula 3. MRSA pneumonia and Haemophilus influenza pneumonia May have been a secondary infection due to COVID-19 On oral doxycycline Infectious disease following 4. Obstructive sleep apnea Pulmonary following and encouraging BiPAP therapy 5. Morbid obesity complicates care and overall recovery 6. VTE prophylaxis with a low medical weight heparin Charges/Coding Visit Charges Inpatient E&M: 19593 Subs Hosp L2
[2021-02-03 18:30] LABS: Bedside Glucose 224 mg/dL (70-110)
--- NOTE | 2021-02-03 19:44 | NURSING ---
emergency docunentation [id number]/03/2021
[2021-02-03] MEDS: Atorvastatin Calcium 40 MG Tablet PO (21:41)
[2021-02-03] MEDS: Doxycycline 100 MG CAPSULE PO (21:41)
[2021-02-03 22:26] LABS: Bedside Glucose 210 mg/dL (70-110)
[2021-02-04] VITALS (17 sets, daily range): BP systolic 102–132; BP diastolic 48–63; PULSE 64–88; RESP 12–24; TEMP 36.3–36.7; O2SAT 91–97
[2021-02-04] MEDS: Levothyroxine 100 MCG Tablet PO (06:45)
[2021-02-04 06:55] LABS: Bedside Glucose 129 mg/dL (70-110)
[2021-02-04] MEDS: Ipratropium/Albuterol Sulfate 3 ML AMPUL.NEB INHALATION ×5 (07:04→23:51)
[2021-02-04 07:35] LABS: Absolute Lymphocyte Count 0.97 X10^3/uL (0.83-4.51); Absolute Neutrophil Count 2.7 X10^3/uL (2.0-7.7); Basophil# 0.01 X10^3/uL; Basophil% 0.2 % (0-1); Eosinophil# 0.01 X10^3/uL; Eosinophils% 0.2 % (0-5); Hemoglobin 12.7 g/dL (12.0-15.0); Lymphocyte # 0.97 X10^3/ul (0.83-4.51); Lymphocyte % 23.4 % (19-41); Mean Corpuscular Hgb 27.3 pg (27.0-32.0); Mean Corpuscular Volume 88.2 fL (81-99); Mean Platelet Vol. 9.6 fl (6.2-12.0); Monocyte# 0.39 X10^3/uL; Monocyte% 9.4 % (0-10); NRBC Flagged by Analyzer 0 % (0-5); Neutrophil # 2.66 X10^3/uL (2.7-7.7); Neutrophil % 64.1 % (47-70); Platelet Count 258 K/mm3 (150-450); RBC Distribution Width CV 14.4 % (11.6-14.6); RBC Distribution Width SD 45.3 fl (35.1-43.9); Red Blood Count 4.65 M/mm3 (4.2-5.4); White Blood Count 4.2 K/mm3 (4.4-11.0)
[2021-02-04 08:05] LABS: ALB/GLOB Ratio 0.7 RATIO (0.9-2.4); AST(SGOT) 54 U/L (15-37); Alanine Aminotransfer ALT/SGPT 46 U/L (13-56); Albumin, Serum 2.4 g/dL (3.2-5.0); Alkaline Phosphatase 57 U/L (45-117); Anion Gap 4 (5-15); BUN 25 mg/dL (7-18); BUN/Creat Ratio 35.9 RATIO (10-20); Calcium,Total 8.2 mg/dL (8.5-10.1); Chloride 104 mmol/L (98-107); EST Glomerular Filtration Rate 88 mL/min (>60); Est Glom Filt Rate - Afr Amer 106 mL/min (>60); Globulin 3.4 g/dL (2.2-4.2); Glucose 128 mg/dL (74-106); Potassium 3.4 mmol/L (3.5-5.1); Protein, Total 5.8 g/dL (6.4-8.2); Sodium Level 142 mmol/L (136-145)
[2021-02-04] MEDS: Fenofibrate 48 MG Tablet PO (08:23)
[2021-02-04] MEDS: Potassium Chloride Oral Tablet 20 MEQ PO (08:23)
[2021-02-04] MEDS: Menthol/Lanolin/Calamine/Znox 113 GM Tube 1 APPLIC TOPICAL (08:23)
[2021-02-04] MEDS: Enoxaparin 40 MG/0.4 ML Syringe SC ×2 (08:24→22:03)
[2021-02-04] MEDS: Furosemide 40 MG/4 ML Vial IV (08:24)
[2021-02-04] MEDS: Oxybutynin 5 MG Tablet PO (08:24)
[2021-02-04] MEDS: dexAMETHasone 10 MG/ML Vial 6 MG IV (08:24)
[2021-02-04] MEDS: 0.9% Saline Lock 10 ML Syringe IV (08:24)
[2021-02-04] MEDS: guaiFENesin 1,200 MG Tablet 1200 MG PO ×2 (08:24→22:03)
[2021-02-04] MEDS: Doxycycline 100 MG CAPSULE PO ×2 (08:24→22:03)
[2021-02-04] MEDS: DULoxetine Hcl 60 MG Capsule PO (08:24)
--- NOTE | 2021-02-04 08:41 | PN.CC_ITS ---
Assessment & Plan Assessment/Plan (1) Pneumonia due to COVID-19 virus: PLAN: RECOMMENDATIONS: 1. Wean supplemental oxygen as tolerated. 2. Completed remdesivir. Continue Decadron as ordered to complete treatment courses. 3. Continue twice daily Lovenox. 4. Continue bronchodilator therapy. 5. Continue empiric BiPAP therapy, at a minimum, with naps and nightly. 6. Continue broad-spectrum antibiotics 7. Encourage incentive spirometer use and mobilize patient as tolerated. IMPRESSIONS: 1. Acute on chronic hypoxemic respiratory failure secondary to COVID-19, MRSA and H. influenzae pneumonia The patient is unvaccinated and presented with less than 1 week of respiratory symptoms related to COVID-19 pneumonia. She does have a baseline 3 L/min oxygen requirement. Complete course of remdesivir. Continue Decadron to complete 10 days. Plan to continue to wean supplemental oxygen as tolerated to maintain saturations at or above 90%. Encourage incentive spirometer use and mobilize patient as tolerated. Patient does appear to have superimposed bacterial infection with MRSA and H. influenzae. Patient remains on doxycycline. Anticipate some potential improvement from a bacterial pneumonia standpoint. COVID-19 therapy will be continued to complete the courses. Continue to wean oxygen as tolerated. Okay to discharge if able to ambulate on 6 L or less. 2. History of obstructive sleep apnea, noncompliant with nocturnal Pap therapy Recommend empiric use of BiPAP therapy, at a minimum, with naps and nightly. 3. History of tobacco dependency in remission/morbid obesity/self-reported history of CHF Complicates care, management, recovery and prognosis. Continue home medications as indicated. Physical therapy to work with the patient. This note was generated with [employer] dictation software. It may contain incorrect words, spelling, and punctuation that were not noted in checking the note before signing. Subjective Subjective Patient did well overnight. No hemodynamic instability was reported. Patient does report that she is on 2 to 3 L nasal cannula at baseline. Patient has had a cough, but is not having any production. Patient describes the cough is wet. Objective Data Objective Data Vital Signs: Vital Signs Temp Pulse Resp BP Pulse Ox 36.7 C 79 18 117/53 L 91 02/04/21 08:17 02/04/21 08:17 02/04/21 08:17 02/04/21 08:17 02/04/21 08:17 Oxygen Flow Rate (L/min) 4 Oxygen Delivery Method Nasal Cannula Weight: 137.7 kg Body Mass Index (BMI) 49.6 Intake & Output: Intake and Output for Last 24 Hours 02/02/21 02/03/21 02/04/21 23:59 23:59 23:59 Intake Total 1760.00 / 1760.00 1440 / 1440 Output Total 1800 / 1800 500 / 500 Balance -40.00 / -40.00 940 / 940 Medical Nutrition Assessment Dietitian: Malnutrition Criteria Met Start: 01/31/21 09:59 Freq: Status: Active Protocol: Document 01/31/21 10:06 AG (Rec: 01/31/21 10:07 AG [id number]) Nutrition Malnutrition Evidence of Malnutrition Exists No Clinical Problem Altered Nutrient-Related Laboratory Values Etiology r/t steroid administration Signs/Symptoms as evidenced by hyperglycemia (glucose 225mg/dL) Status Active Problem Recommendation Dietitian Recommendations/Changes continue sodium restricted diet. Recommend fluid restriction as indicated. Lab / Micro Data Result Diagrams: 02/04/21 07:05 02/04/21 07:05 Labs: Laboratory Results - last 24 hr 02/03/21 09:25: WBC 6.0, RBC 4.83, Hgb 13.1, Hct 43.6, MCV 90.3, MCH 27.1, MCHC 30.0 L, RDW Std Deviation 46.8 H, RDW Coeff of Mike 14.5, Plt Count 289, MPV 9.5 02/03/21 09:25: Sodium 141, Potassium 3.3 L, Chloride 104, Carbon Dioxide 32.0, Anion Gap 5, BUN 28 H, Creatinine 0.94, Estim Creat Clear Calc 51.39, Est GFR (MDRD) Af Amer 76, Est GFR (MDRD) Non-Af 63, BUN/Creatinine Ratio 29.9 H, Glucose 147 H, Calcium 8.0 L, Total Bilirubin 0.80, AST 101 H, ALT 54, Alkaline Phosphatase 60, Total Protein 6.2 L, Albumin 2.5 L, Globulin 3.7, Albumin/Globulin Ratio 0.7 L 02/03/21 12:58: POC Glucose 196 H 02/03/21 18:19: POC Glucose 224 H 02/03/21 21:40: POC Glucose 210 H 02/04/21 06:43: POC Glucose 129 H 02/04/21 07:05: WBC 4.2 L, RBC 4.65, Hgb 12.7, Hct 41.0, MCV 88.2, MCH 27.3, MCHC 31.0 L, RDW Std Deviation 45.3 H, RDW Coeff of Mike 14.4, Plt Count 258, MPV 9.6, Immature Gran % (Auto) 2.700 H, Neut % (Auto) 64.1, Lymph % (Auto) 23.4, [place] % (Auto) 9.4, Eos % (Auto) 0.2, Baso % (Auto) 0.2, Absolute Neuts (auto) 2.7, Absolute Lymphs (auto) 0.97, Nucleated RBC % 0 02/04/21 07:05: Sodium 142, Potassium 3.4 L, Chloride 104, Carbon Dioxide 34.0 H , Anion Gap 4 L, BUN 25 H, Creatinine 0.70, Estim Creat Clear Calc 48.30, Est GFR (MDRD) Af Amer 106, Est GFR (MDRD) Non-Af 88, BUN/Creatinine Ratio 35.9 H, Glucose 128 H, Calcium 8.2 L, Total Bilirubin 0.70, AST 54 H, ALT 46, Alkaline Phosphatase 57, Total Protein 5.8 L, Albumin 2.4 L, Globulin 3.4, Albumin/Globulin Ratio 0.7 L Micro: Microbiology 01/31/21 01:25 Sputum, Expectorated/Coughed Gram Stain - Final 01/31/21 01:25 Sputum, Expectorated/Coughed Respiratory Culture - Final Meth. resistant Staph. aureus Haemophilus influenzae 01/30/21 23:40 Mucosa - Nasopharyngeal Respiratory Panel (PCR) - Final 01/31/21 01:25 Urine, Clean Catch Legionella Antigen - Final 01/31/21 01:25 Urine, Clean Catch Streptococcus pneumoniae Antigen (M - Final 01/30/21 19:06 Mucosa - Nose SARS-CoV-2 Antigen (Rapid) - Final SARS-CoV-2 (COVID 19) Physical Exam Const alert, oriented x3 and no apparent distress Constitutional Narrative: Sitting in bed Nutritional Appearance: morbidly obese HEENT normocephalic Eyes PERRL, EOMs intact bilaterally, conjunctivae normal and no scleral icterus Neck full ROM and No nuchal rigidity Chest inspection of chest normal Chest: symmetrical chest wall rise Resp normal respiratory effort and no use of accessory muscles Effort and Inspection: tachypneic Auscultation: diminished lung sounds; Negative for rales, rhonchi or wheezes Cardio regular rate, regular rhythm, S1 normal heart sound, S2 normal heart sound, no murmurs, no rub and no gallops GI normal to inspection, nondistended, normoactive bowel sounds GI Narrative: Exam limited by body habitus Extremity General Extremity: edema bilateral (2+) lower extremity; Negative for clubbing or cyanosis Skin no rashes or lesions noted Neuro CN's II-XII intact bilaterally and no focal motor deficits Psych mental status grossly normal and thought process normal Charges/Coding Visit Charges Inpatient E&M: 62822 Subs Hosp L2
[2021-02-04] MEDS: Insulin Lispro 100 UNIT/ML INSULN.PEN SC ×2 (11:23→16:24)
[2021-02-04 11:36] LABS: Bedside Glucose 160 mg/dL (70-110)
--- NOTE | 2021-02-04 14:16 | PN.HOSP_ITS ---
Subjective Subjective Breathing well overall. Objective Data Objective Data Vital Signs: Vital Signs Temp Pulse Resp BP Pulse Ox 36.7 C 71 20 H 132/48 H 97 02/04/21 11:25 02/04/21 11:50 02/04/21 11:25 02/04/21 11:25 02/04/21 11:25 Oxygen Flow Rate (L/min) 4.5 Oxygen Delivery Method Nasal Cannula Weight: 137.7 kg Body Mass Index (BMI) 49.6 Intake & Output: Intake and Output for Last 24 Hours 02/02/21 02/03/21 02/04/21 23:59 23:59 23:59 Intake Total 1760.00 / 1760.00 1440 / 1440 Output Total 1800 / 1800 500 / 500 Balance -40.00 / -40.00 940 / 940 Medical Nutrition Assessment Dietitian: Malnutrition Criteria Met Start: 01/31/21 09:59 Freq: Status: Active Protocol: Document 01/31/21 10:06 (Rec: 01/31/21 10:07 [id number]) Nutrition Malnutrition Evidence of Malnutrition Exists No Clinical Problem Altered Nutrient-Related Laboratory Values Etiology r/t steroid administration Signs/Symptoms as evidenced by hyperglycemia (glucose 225mg/dL) Status Active Problem Recommendation Dietitian Recommendations/Changes continue sodium restricted diet. Recommend fluid restriction as indicated. Lab / Micro Data Result Diagrams: 02/04/21 07:05 02/04/21 07:05 Labs: Laboratory Results - last 24 hr 02/03/21 18:19: POC Glucose 224 H 02/03/21 21:40: POC Glucose 210 H 02/04/21 06:43: POC Glucose 129 H 02/04/21 07:05: WBC 4.2 L, RBC 4.65, Hgb 12.7, Hct 41.0, MCV 88.2, MCH 27.3, MCHC 31.0 L, RDW Std Deviation 45.3 H, RDW Coeff of Mike 14.4, Plt Count 258, MPV 9.6, Immature Gran % (Auto) 2.700 H, Neut % (Auto) 64.1, Lymph % (Auto) 23.4, [place] % (Auto) 9.4, Eos % (Auto) 0.2, Baso % (Auto) 0.2, Absolute Neuts (auto) 2.7, Absolute Lymphs (auto) 0.97, Nucleated RBC % 0 02/04/21 07:05: Sodium 142, Potassium 3.4 L, Chloride 104, Carbon Dioxide 34.0 H , Anion Gap 4 L, BUN 25 H, Creatinine 0.70, Estim Creat Clear Calc 48.30, Est GFR (MDRD) Af Amer 106, Est GFR (MDRD) Non-Af 88, BUN/Creatinine Ratio 35.9 H, Glucose 128 H, Calcium 8.2 L, Total Bilirubin 0.70, AST 54 H, ALT 46, Alkaline Phosphatase 57, Total Protein 5.8 L, Albumin 2.4 L, Globulin 3.4, Albumin /Globulin Ratio 0.7 L 02/04/21 11:22: POC Glucose 160 H Micro: Microbiology 01/31/21 01:25 Sputum, Expectorated/Coughed Gram Stain - Final 01/31/21 01:25 Sputum, Expectorated/Coughed Respiratory Culture - Final Meth. resistant Staph. aureus Haemophilus influenzae 01/30/21 23:40 Mucosa - Nasopharyngeal Respiratory Panel (PCR) - Final 01/31/21 01:25 Urine, Clean Catch Legionella Antigen - Final 01/31/21 01:25 Urine, Clean Catch Streptococcus pneumoniae Antigen (M - Final 01/30/21 19:06 Mucosa - Nose SARS-CoV-2 Antigen (Rapid) - Final SARS-CoV-2 (COVID 19) Physical Exam Const alert HEENT Head and Scalp: normocephalic Resp normal respiratory effort and no use of accessory muscles Resp Narrative: crackles bilaterally Cardio regular rate, regular rhythm, S1 normal heart sound and S2 normal heart sound GI normal to inspection, nondistended, normoactive bowel sounds, non-tender and non-distended GI Narrative: obese soft Assessment & Plan Assessment/Plan (1) Pneumonia due to COVID-19 virus: (2) Acute respiratory failure with hypoxia: (3) MRSA pneumonia: QUALIFIERS: Laterality: bilateral Lung location: unspecified part of lung Qualified Code(s): J15.212 - Pneumonia due to Methicillin resistant Staphylococcus aureus (4) Haemophilus influenzae pneumonia: QUALIFIERS: Laterality: bilateral Lung location: unspecified part of lung Qualified Code(s): J14 - Pneumonia due to Hemophilus influenzae PLAN: 1. Acute COVID-19 pneumonia On dexamethasone and remdesivir Patient vaccinated Onset of symptoms was January 28 and patient will need to quarantine through the . 2. Acute on chronic hypoxic respiratory failure Improving Multifactorial: COPD, DOLORES, obesity, COVID, bacterial pneumonia Wean oxygen as tolerated. Baseline oxygen is 3 L nasal cannula 3. MRSA pneumonia and Haemophilus influenza pneumonia May have been a secondary infection due to COVID-19 On oral doxycycline Infectious disease following 4. Obstructive sleep apnea Pulmonary following and encouraging BiPAP therapy 5. Morbid obesity complicates care and overall recovery 6. VTE prophylaxis with a low medical weight heparin Charges/Coding Visit Charges Inpatient E&M: 76645 Subs Hosp L2
[2021-02-04 16:35] LABS: Bedside Glucose 203 mg/dL (70-110)
[2021-02-04] MEDS: Atorvastatin Calcium 40 MG Tablet PO (22:03)
[2021-02-04 22:25] LABS: Bedside Glucose 172 mg/dL (70-110)
[2021-02-05] VITALS (10 sets, daily range): BP systolic 121–141; BP diastolic 48–73; PULSE 61–103; RESP 12–21; TEMP 36.6–36.7; O2SAT 78–98
[2021-02-05] MEDS: Ipratropium/Albuterol Sulfate 3 ML AMPUL.NEB INHALATION ×3 (03:35→11:52)
[2021-02-05] MEDS: Levothyroxine 100 MCG Tablet PO (06:53)
[2021-02-05 07:01] LABS: Bedside Glucose 113 mg/dL (70-110)
[2021-02-05 07:17] LABS: Absolute Lymphocyte Count 0.99 X10^3/uL (0.83-4.51); Absolute Neutrophil Count 2.9 X10^3/uL (2.0-7.7); Basophil# 0.02 X10^3/uL; Basophil% 0.4 % (0-1); Eosinophil# 0.03 X10^3/uL; Eosinophils% 0.7 % (0-5); Hematocrit 44.5 % (37-47); Hemoglobin 13.6 g/dL (12.0-15.0); Lymphocyte # 0.99 X10^3/ul (0.83-4.51); Lymphocyte % 21.9 % (19-41); Mean Corp Hgb Conc 30.6 g/dL (32-36); Mean Corpuscular Hgb 27.3 pg (27.0-32.0); Mean Corpuscular Volume 89.2 fL (81-99); Mean Platelet Vol. 9.6 fl (6.2-12.0); Monocyte# 0.41 X10^3/uL; Monocyte% 9.1 % (0-10); NRBC Flagged by Analyzer 0 % (0-5); Neutrophil # 2.87 X10^3/uL (2.7-7.7); Neutrophil % 63.3 % (47-70); Platelet Count 296 K/mm3 (150-450); RBC Distribution Width CV 14.5 % (11.6-14.6); RBC Distribution Width SD 46.3 fl (35.1-43.9); Red Blood Count 4.99 M/mm3 (4.2-5.4); White Blood Count 4.5 K/mm3 (4.4-11.0)
[2021-02-05 08:06] LABS: Anion Gap 3 (5-15); BUN 28 mg/dL (7-18); BUN/Creat Ratio 40.2 RATIO (10-20); Calcium,Total 8.8 mg/dL (8.5-10.1); Chloride 103 mmol/L (98-107); EST Glomerular Filtration Rate 88 mL/min (>60); Est Glom Filt Rate - Afr Amer 106 mL/min (>60); Glucose 119 mg/dL (74-106); Potassium 3.5 mmol/L (3.5-5.1); Sodium Level 141 mmol/L (136-145)
[2021-02-05] MEDS: Mineral Oil/Petrolatum Cr 1.75oz Bottle 1 APPLIC TOPICAL (08:14)
[2021-02-05] MEDS: Menthol/Lanolin/Calamine/Znox 113 GM Tube 1 APPLIC TOPICAL (08:15)
[2021-02-05] MEDS: Nystatin Powder 15gm Bottle 1 APPLIC TOPICAL (08:15)
[2021-02-05] MEDS: guaiFENesin 1,200 MG Tablet 1200 MG PO (08:16)
[2021-02-05] MEDS: DULoxetine Hcl 60 MG Capsule PO (08:16)
[2021-02-05] MEDS: 0.9% Saline Lock 10 ML Syringe IV (08:16)
[2021-02-05] MEDS: Enoxaparin 40 MG/0.4 ML Syringe SC (08:16)
[2021-02-05] MEDS: Fenofibrate 48 MG Tablet PO (08:16)
[2021-02-05] MEDS: Oxybutynin 5 MG Tablet PO (08:16)
[2021-02-05] MEDS: Doxycycline 100 MG CAPSULE PO ×2 (08:17)
[2021-02-05] MEDS: Furosemide 40 MG/4 ML Vial IV (08:17)
[2021-02-05] MEDS: dexAMETHasone 10 MG/ML Vial 6 MG IV (08:17)
[2021-02-05] MEDS: Potassium Chloride Oral Tablet 20 MEQ PO (08:17)
--- NOTE | 2021-02-05 09:55 | PCM.PN.INT ---
Assessment & Plan Assessment/Plan (1) Pneumonia due to COVID-19 virus: PLAN: RECOMMENDATIONS: 1. Wean supplemental oxygen as tolerated. 2. Completed remdesivir. Continue Decadron as ordered to complete treatment courses. 3. Okay to discontinue DVT prophylaxis on discharge 4. Continue bronchodilator therapy. 5. Continue empiric BiPAP therapy, at a minimum, with naps and nightly. 6. Continue complete 10 total days of antibiotics 7. Patient can follow-up in our office in 4 weeks with nurse practitioner to reevaluate respiratory status and need for supplemental oxygen. IMPRESSIONS: 1. Acute on chronic hypoxemic respiratory failure secondary to COVID-19, MRSA and H. influenzae pneumonia The patient is unvaccinated and presented with less than 1 week of respiratory symptoms related to COVID-19 pneumonia. She does have a baseline 3 L/min oxygen requirement. Complete course of remdesivir. Continue Decadron to complete 10 days. Plan to continue to wean supplemental oxygen as tolerated to maintain saturations at or above 90%. Encourage incentive spirometer use and mobilize patient as tolerated. Patient does appear to have superimposed bacterial infection with MRSA and H. influenzae. Patient remains on doxycycline. Anticipate some potential improvement from a bacterial pneumonia standpoint. COVID-19 therapy will be continued to complete the courses. Continue to wean oxygen as tolerated. Okay to discharge if able to ambulate on 6 L or less. 2. History of obstructive sleep apnea, noncompliant with nocturnal Pap therapy Recommend empiric use of BiPAP therapy, at a minimum, with naps and nightly. 3. History of tobacco dependency in remission/morbid obesity/self-reported history of CHF Complicates care, management, recovery and prognosis. Continue home medications as indicated. Physical therapy to work with the patient. This note was generated with [employer] dictation software. It may contain incorrect words, spelling, and punctuation that were not noted in checking the note before signing. Subjective Subjective Patient feels that she is doing well. Patient continues to have a cough with intermittent production. Patient feels that she is almost back to her baseline at this time. Patient is still requiring more supplemental oxygen needs than baseline. Objective Data Objective Data Vital Signs: Vital Signs Temp Pulse Resp BP Pulse Ox 36.7 C 76 16 141/48 H 94 02/05/21 08:10 02/05/21 08:20 02/05/21 08:10 02/05/21 08:10 02/05/21 08:40 Oxygen Flow Rate (L/min) [ 5 AMBULATING with Oxygen #3] Oxygen Flow Rate (L/min) [ 4 AMBULATING with Oxygen #2] Oxygen Flow Rate (L/min) [ 3 AMBULATING with Oxygen #1] Oxygen Flow Rate (L/min) [At 3 REST with Oxygen] Oxygen Flow Rate (L/min) 3 Oxygen Delivery Method Nasal Cannula Weight: 136.803 kg Body Mass Index (BMI) 49.6 Intake & Output: Intake and Output for Last 24 Hours 02/03/21 02/04/21 02/05/21 23:59 23:59 23:59 Intake Total 1440 / 1440 200 / 200 Output Total 500 / 500 Balance 940 / 940 200 / 200 Medical Nutrition Assessment Dietitian: Malnutrition Criteria Met Start: 01/31/21 09:59 Freq: Status: Active Protocol: Document 01/31/21 10:06 (Rec: 01/31/21 10:07 [id number]) Nutrition Malnutrition Evidence of Malnutrition Exists No Clinical Problem Altered Nutrient-Related Laboratory Values Etiology r/t steroid administration Signs/Symptoms as evidenced by hyperglycemia (glucose 225mg/dL) Status Active Problem Recommendation Dietitian Recommendations/Changes continue sodium restricted diet. Recommend fluid restriction as indicated. Lab / Micro Data Result Diagrams: 02/05/21 06:55 02/05/21 06:55 Labs: Laboratory Results - last 24 hr 02/04/21 11:22: POC Glucose 160 H 02/04/21 16:23: POC Glucose 203 H 02/04/21 22:06: POC Glucose 172 H 02/05/21 06:50: POC Glucose 113 H 02/05/21 06:55: WBC 4.5, RBC 4.99, Hgb 13.6, Hct 44.5, MCV 89.2, MCH 27.3, MCHC 30.6 L, RDW Std Deviation 46.3 H, RDW Coeff of Mike 14.5, Plt Count 296, MPV 9.6, Immature Gran % (Auto) 4.600 H, Neut % (Auto) 63.3, Lymph % (Auto) 21.9, [place] % (Auto) 9.1, Eos % (Auto) 0.7, Baso % (Auto) 0.4, Absolute Neuts (auto) 2.9, Absolute Lymphs (auto) 0.99, Nucleated RBC % 0 02/05/21 06:55: Sodium 141, Potassium 3.5, Chloride 103, Carbon Dioxide 35.0 H, Anion Gap 3 L, BUN 28 H, Creatinine 0.70, Estim Creat Clear Calc 48.30, Est GFR (MDRD) Af Amer 106, Est GFR (MDRD) Non-Af 88, BUN/Creatinine Ratio 40.2 H, Glucose 119 H, Calcium 8.8 Micro: Microbiology 01/31/21 01:25 Sputum, Expectorated/Coughed Gram Stain - Final 01/31/21 01:25 Sputum, Expectorated/Coughed Respiratory Culture - Final Meth. resistant Staph. aureus Haemophilus influenzae 01/30/21 23:40 Mucosa - Nasopharyngeal Respiratory Panel (PCR) - Final 01/31/21 01:25 Urine, Clean Catch Legionella Antigen - Final 01/31/21 01:25 Urine, Clean Catch Streptococcus pneumoniae Antigen (M - Final 01/30/21 19:06 Mucosa - Nose SARS-CoV-2 Antigen (Rapid) - Final SARS-CoV-2 (COVID 19) Physical Exam Const alert, oriented x3 and no apparent distress Constitutional Narrative: Sitting in bed Nutritional Appearance: morbidly obese HEENT normocephalic Eyes PERRL, EOMs intact bilaterally, conjunctivae normal and no scleral icterus Neck full ROM and No nuchal rigidity Chest inspection of chest normal Chest: symmetrical chest wall rise Resp normal respiratory effort and no use of accessory muscles Effort and Inspection: tachypneic Auscultation: diminished lung sounds; Negative for rales, rhonchi or wheezes Cardio regular rate, regular rhythm, S1 normal heart sound, S2 normal heart sound, no murmurs, no rub and no gallops GI normal to inspection, nondistended, normoactive bowel sounds GI Narrative: Exam limited by body habitus Extremity General Extremity: edema bilateral (2+) lower extremity; Negative for clubbing or cyanosis Skin no rashes or lesions noted Neuro CN's II-XII intact bilaterally and no focal motor deficits Psych mental status grossly normal and thought process normal Charges/Coding Visit Charges Inpatient E&M: 05524 Subs Hosp L2
[2021-02-05] MEDS: Insulin Lispro 100 UNIT/ML INSULN.PEN SC (11:13)
[2021-02-05 11:21] LABS: Bedside Glucose 166 mg/dL (70-110)
--- NOTE | 2021-02-05 11:21 | CASEMGMT ---
Addendum entered by Savanah Davila 02/05/21 14:47: This MAURY SHARMA spoke with pt and daughter again and both decline HHC at this time. Pt/daughter voice no further questions/concerns/needs. SW pamphlet placed with discharge instructions so pt can set up appt once out of quarantine to come back to complete. Dominique MENDIOLA CM Addendum entered by Savanah Davila 02/05/21 11:46: Per Dr. Cortés's office, pt had already been set up for appt with [facility] several weeks ago but will see Abdoulaye Bo NP sooner for hospital f/u. Call to [facility] and they are unsure if they can provide a tank for discharge and are asking if they can have someone pick one up for pt and pt's daughter's number provided to them at this time so that they can coordinate with her directly. Per CM assessment, pt's daughter had been made aware at that time that they would need to bring a tank for discharge and daughter states has been at pt home, cleaning and painting. CM to follow. Dominique MENDIOLA CM Original Note: Per Tracey MENDIOLA, pt qualifies for 5L w/ exertion but is ok on her 2L at rest. New order for increased oxygen faxed to [facility]. Per daughter, she lives here in [place] and does not have an oxygen tank in [place] for pt and will not be able to go to [place](pt's home) to get one prior to coming to [facility] to miner pick pt for d/c. Call to [facility] to notify of new order and that pt will need a tank for discharge. Daughter is also asking about a rollator for pt and according to [facility], pt was delivered a heavy duty rollator set up several years ago. Pt states is currently using a borrowed WW and thinks her HD rollator might be in the upstairs of home. Daughter states she will check on this when she takes pt home. Daughter is unsure on need for HHC at discharge and this MAURY SHARMA asked therapy to see pt and then will f/u with daughter. Daughter also requests that pt be set up with Dr. Cortés at discharge for a PCP. CM to follow. Dominique MENDIOLA CM
--- NOTE | 2021-02-05 13:17 | PCM.DC ---
Discharge Instructions Diet Discharge Diet: Low fat / Low cholesterol Activity Discharge Activity: Return to Normal Activity Additional Activity Instructions:: Self isolate for at least 20 days since symptoms began (01/28-02/17/2021) AND at least one day (24 hours) have passed since resolution of fever without the use of fever-reducing agents AND improvement of symptoms (e.g., cough, shortness of breath) When around people in the same room, wear a face mask. Individuals also in the room should wear a mask. If possible, use a different bathroom and bedroom. Perform adequate hand hygiene. Avoid sharing dishes, glasses, etc. Follow Up Care Test Results: Test results from this visit will be discussed in further detail at your follow-up appointment, if applicable. Discharge Plan Admission Admit Date/Time: 01/30/21 22:25 Primary Reason for Your Visit: Pneumonia. COVID 19 Attending Provider: Eliud Sarkar Primary Care Provider: Luis Cortés Consulting Providers: Usama Alas ; Jori Sterling ; Dianne De Los Santos NP ; David Johnson Discharge Orders/Prescriptions Prescriptions: New doxycycline monohydrate 100 mg Capsule 100 mg PO BID Qty: 15 RF: 0 Mucus Relief ER 1,200 mg Tablet Extended Release 12hr 1,200 mg PO BID Qty: 10 RF: 0 metformin 500 mg tablet 500 mg PO BID Qty: 60 RF: 0 Continued furosemide 40 mg tablet 40 mg PO DAILY RF: 0 atorvastatin 40 mg tablet 40 mg PO QHS RF: 0 potassium chloride 10 mEq tablet extended release 20 meq PO DAILY RF: 0 spironolactone 25 mg tablet 25 mg PO DAILY RF: 0 levothyroxine 100 mcg tablet 100 mcg PO DAILY RF: 0 gabapentin 100 mg capsule RF: 0 albuterol sulfate 90 mcg/actuation HFA aerosol inhaler 2 inh INHALATION 4X/DAY PRN (Reason: Shortness Of Breath) RF: 0 oxybutynin chloride 5 mg tablet 5 mg PO DAILY RF: 0 duloxetine 60 mg capsule,delayed release(DR/EC) 60 mg PO DAILY RF: 0 fenofibrate nanocrystallized 48 mg tablet 48 mg PO DAILY RF: 0 Other Ambulatory Orders: Glucometer (Routine) Location: None Selected Ordered By: Dr. Eliud Sarkar Referrals / Follow Up: Luis Cortés MD [Primary Care Provider] - 02/26/21 2:00 pm (Your appointment will be with Toby. Please arrive at 1:30pm. You will see Dr. Cortés at the end of February when your other appointment was.) Care Physician,No Primary [NON-STAFF] - () Disposition Disposition (needs filled in before D/C Order can be placed): Home, Self Care
--- NOTE | 2021-02-05 13:30 | PCM.DC.SUM ---
Providers Date of Admission: 01/30/21 Primary Care Physician: Dr. Luis Cortés MD Consultations 01/30/21 22:56 Consult: Infectious Disease Routine Consulting Provider: David Johnson Reason for Consult: COVID 19 pneumonia EMERGENT Consult: No Notified: Yes Date Notified: 01/31/21 Time Notified: 10:52 Method of Notification: Answering Service Consult: Manager General / Pulmonary Medicine Routine Consulting Provider: Pulmonary Medicine ear[place] Reason for Consult: Acute on chronic hypoxic respiratory failure. Covid-19, COPD EMERGENT Consult: No Notified: Yes Date Notified: 01/30/21 Time Notified: 07:00 Method of Notification: Verbal Reason For Visit: ACUTE ON CHRONIC HYPOXIC RESPIR FAILURE D/T COVID Diagnosis Discharge Diagnosis (1) Pneumonia due to COVID-19 virus: Status: Acute Code(s): U07.1 - COVID-19; J12.82 - Pneumonia due to coronavirus disease 2019 Medications at Discharge Home Medications albuterol sulfate 2 inh INHALATION 4X/DAY PRN 01/31/21 atorvastatin 40 mg PO QHS 01/31/21 duloxetine 60 mg PO DAILY 01/31/21 fenofibrate nanocrystallized 48 mg PO DAILY 01/31/21 furosemide 40 mg PO DAILY 01/31/21 gabapentin 01/31/21 levothyroxine 100 mcg PO DAILY 01/31/21 oxybutynin chloride 5 mg PO DAILY 01/31/21 potassium chloride 20 meq PO DAILY 01/31/21 spironolactone 25 mg PO DAILY 01/31/21 doxycycline monohydrate 100 mg PO BID #15 cap 02/05/21 guaifenesin [Mucus Relief ER] 1,200 mg PO BID #10 tab 02/05/21 metformin 500 mg PO BID #60 tab 02/05/21 Hospital Course Operations None Procedures None Summary of Care Provided Minutes Spent on Discharge: 32 Hospital Course: 1. Acute COVID-19 pneumonia On dexamethasone Patient vaccinated Onset of symptoms was January 28 and patient will need to quarantine through the . 2. Acute on chronic hypoxic respiratory failure Improving Multifactorial: COPD, DOLORES, obesity, COVID, bacterial pneumonia Wean oxygen as tolerated. Baseline oxygen is 3 L nasal cannula. Will need 5 L of oxygen with activity. 3. MRSA pneumonia and Haemophilus influenza pneumonia May have been a secondary infection due to COVID-19 On oral doxycycline for total of 10 days Infectious disease following 4. Obstructive sleep apnea Pulmonary following and encouraging BiPAP therapy 5. Diabetes mellitus type 2: A1c 6.5. Patient was on insulin glargine here. Will change patient over to Metformin 500 twice daily. Patient advised to get a glucometer. Physical Exam Const alert Constitutional Narrative: up in chair. afebril. Cardio regular rate, regular rhythm, S1 normal heart sound and S2 normal heart sound GI normal to inspection, nondistended, normoactive bowel sounds, soft to palpation, non-tender and non-distended Extremity normal to inspection and full ROM Medical Records Data Medical Nutrition Assessment Dietitian: Malnutrition Criteria Met Start: 01/31/21 09:59 Freq: Status: Active Protocol: Document 01/31/21 10:06 (Rec: 01/31/21 10:07 [id number]) Nutrition Malnutrition Evidence of Malnutrition Exists No Clinical Problem Altered Nutrient-Related Laboratory Values Etiology r/t steroid administration Signs/Symptoms as evidenced by hyperglycemia (glucose 225mg/dL) Status Active Problem Recommendation Dietitian Recommendations/Changes continue sodium restricted diet. Recommend fluid restriction as indicated. Weight / BMI Weight Weight: 136.803 kg Body Mass Index (BMI) 49.6 ABG / Lab / Microbiology Data Result Diagrams: 02/05/21 06:55 02/05/21 06:55 Laboratory: Laboratory Results - last 24 hr 02/04/21 16:23: POC Glucose 203 H 02/04/21 22:06: POC Glucose 172 H 02/05/21 06:50: POC Glucose 113 H 02/05/21 06:55: WBC 4.5, RBC 4.99, Hgb 13.6, Hct 44.5, MCV 89.2, MCH 27.3, MCHC 30.6 L, RDW Std Deviation 46.3 H, RDW Coeff of Mike 14.5, Plt Count 296, MPV 9.6, Immature Gran % (Auto) 4.600 H, Neut % (Auto) 63.3, Lymph % (Auto) 21.9, [place] % (Auto) 9.1, Eos % (Auto) 0.7, Baso % (Auto) 0.4, Absolute Neuts (auto) 2.9, Absolute Lymphs (auto) 0.99, Nucleated RBC % 0 02/05/21 06:55: Sodium 141, Potassium 3.5, Chloride 103, Carbon Dioxide 35.0 H, Anion Gap 3 L, BUN 28 H, Creatinine 0.70, Estim Creat Clear Calc 48.30, Est GFR (MDRD) Af Amer 106, Est GFR (MDRD) Non-Af 88, BUN/Creatinine Ratio 40.2 H, Glucose 119 H, Calcium 8.8 02/05/21 11:13: POC Glucose 166 H Microbiology: Microbiology 01/31/21 01:25 Sputum, Expectorated/Coughed Gram Stain - Final 01/31/21 01:25 Sputum, Expectorated/Coughed Respiratory Culture - Final Meth. resistant Staph. aureus Haemophilus influenzae 01/30/21 23:40 Mucosa - Nasopharyngeal Respiratory Panel (PCR) - Final 01/31/21 01:25 Urine, Clean Catch Legionella Antigen - Final 01/31/21 01:25 Urine, Clean Catch Streptococcus pneumoniae Antigen (M - Final 01/30/21 19:06 Mucosa - Nose SARS-CoV-2 Antigen (Rapid) - Final SARS-CoV-2 (COVID 19) D/C Instructions Discharge Diet: Low fat / Low cholesterol Additional Activity Instructions: Self isolate for at least 20 days since symptoms began (01/28-02/17/2021) AND at least one day (24 hours) have passed since resolution of fever without the use of fever-reducing agents AND improvement of symptoms (e.g., cough, shortness of breath) When around people in the same room, wear a face mask. Individuals also in the room should wear a mask. If possible, use a different bathroom and bedroom. Perform adequate hand hygiene. Avoid sharing dishes, glasses, etc. Meaningful Use Info Meaningful Use Diagnoses (Choose all that apply): None applicable Discharge Plan Admission Admit Date/Time: 01/30/21 22:25 Primary Reason for Your Visit: Pneumonia. COVID 19 Attending Provider: Eliud Sarkar Primary Care Provider: Luis Cortés Consulting Providers: Usama Alas ; Jori Sterling ; Dianne De Los Santos NP ; David Johnson Discharge Orders/Prescriptions Prescriptions: New doxycycline monohydrate 100 mg Capsule 100 mg PO BID Qty: 15 RF: 0 Mucus Relief ER 1,200 mg Tablet Extended Release 12hr 1,200 mg PO BID Qty: 10 RF: 0 metformin 500 mg tablet 500 mg PO BID Qty: 60 RF: 0 Continued furosemide 40 mg tablet 40 mg PO DAILY RF: 0 atorvastatin 40 mg tablet 40 mg PO QHS RF: 0 potassium chloride 10 mEq tablet extended release 20 meq PO DAILY RF: 0 spironolactone 25 mg tablet 25 mg PO DAILY RF: 0 levothyroxine 100 mcg tablet 100 mcg PO DAILY RF: 0 gabapentin 100 mg capsule RF: 0 albuterol sulfate 90 mcg/actuation HFA aerosol inhaler 2 inh INHALATION 4X/DAY PRN (Reason: Shortness Of Breath) RF: 0 oxybutynin chloride 5 mg tablet 5 mg PO DAILY RF: 0 duloxetine 60 mg capsule,delayed release(DR/EC) 60 mg PO DAILY RF: 0 fenofibrate nanocrystallized 48 mg tablet 48 mg PO DAILY RF: 0 Other Ambulatory Orders: Glucometer (Routine) Location: None Selected Ordered By: Dr. Eliud Sarkar Referrals / Follow Up: Luis Cortés MD [Primary Care Provider] - 02/26/21 2:00 pm (Your appointment will be with Toby. Please arrive at 1:30pm. You will see Dr. Cortés at the end of February when your other appointment was.) Care Physician,No Primary [NON-STAFF] - () Disposition Disposition (needs filled in before D/C Order can be placed): Home, Self Care Charges/Coding Visit Charges Inpatient E&M: 72734 Disch Hosp
--- NOTE | 2021-02-05 14:17 | PHA.DC.MC ---
Pharmacy Service has performed discharge medication reconciliation and counseling for this patient. 1. DOXYCYCLINE 100MG PO BID X 7 DAYS 2. GUAIFENESIN 1200MG PO BID X 5 DAYS 3. METFORMIN 500MG PO BIDCM The patient's discharge medication list was reviewed for discrepancies and discrepancies were resolved. Patient counseled via telephone due to COVID precautions. Home Medications albuterol sulfate 2 inh INHALATION 4X/DAY PRN 01/31/21 atorvastatin 40 mg PO QHS 01/31/21 duloxetine 60 mg PO DAILY 01/31/21 fenofibrate nanocrystallized 48 mg PO DAILY 01/31/21 furosemide 40 mg PO DAILY 01/31/21 gabapentin 01/31/21 levothyroxine 100 mcg PO DAILY 01/31/21 oxybutynin chloride 5 mg PO DAILY 01/31/21 potassium chloride 20 meq PO DAILY 01/31/21 spironolactone 25 mg PO DAILY 01/31/21 doxycycline monohydrate 100 mg PO BID #15 cap 02/05/21 guaifenesin [Mucus Relief ER] 1,200 mg PO BID #10 tab 02/05/21 metformin 500 mg PO BID #60 tab 02/05/21 The patient was counseled on the following discharge medications and changes in medications for homegoing were reviewed. The Reason for Use, instructions for use, and potential side effects were reviewed for all new medications. The patient's questions regarding all of their medications were answered. The patient was able to verbally demonstrate an understanding of their discharge medications.
--- NOTE | 2021-02-05 15:45 | NURSING ---
discharge instructions provided to Ana Luisa Cummings, patient daughter per patient request.
--- NOTE | 2021-02-06 13:36 | CASEMGMT ---
MAURY SHARMA Discharge Follow-up Phone Call: JUS: Shana Strata: 2 Call Date: 02/06/21 Discharge Date: 02/05/21 Time of Call: 1333 Duration: 1 min Admitting Diagnosis: Covid MAURY SHARMA attempted to complete follow-up phone call after recent hospitalization. No anwser, voice message left with return contact information.
== END 2021-02-05 16:34 | disposition home or self-care (01) | DRG 177 ==
LOC: ED 22:18 → ICU 22:30 → PCU 02-02 22:56
PROVIDERS: Internal Medicine; Internal Medicine Infectious Disease; Admitting Provider Internal Medicine; Emergency Provider Emergency Medicine; PCP Internal Medicine
DX: U07.1 COVID-19 (principal); J12.82 Pneumonia due to coronavirus disease 2019; J96.21 Acute and chronic respiratory failure with hypoxia; J15.212 Pneumonia due to Methicillin resistant Staphylococcus aureus; J14 Pneumonia due to Hemophilus influenzae; J44.0 Chronic obstructive pulmonary disease with (acute) lower respiratory infection; Z68.43 Body mass index [BMI] 50.0-59.9, adult; I11.0 Hypertensive heart disease with heart failure; I50.9 Heart failure, unspecified; E11.65 Type 2 diabetes mellitus with hyperglycemia; T38.0X5A Adverse effect of glucocorticoids and synthetic analogues, initial encounter; G47.33 Obstructive sleep apnea (adult) (pediatric); E78.5 Hyperlipidemia, unspecified; E66.01 Morbid (severe) obesity due to excess calories; Z91.19 Patient's noncompliance with other medical treatment and regimen; Z79.84 Long term (current) use of oral hypoglycemic drugs; Z99.81 Dependence on supplemental oxygen; Z79.899 Other long term (current) drug therapy; Z87.891 Personal history of nicotine dependence
CPT/HCPCS: 36415; 36600; 71045; 71275; 80048; 80053; 82550; 82803; 82962; 83036; 83605; 83615; 83735; 83880; 84100; 84145; 84484; 85025; 85027; 85379; 85384; 86140; 87070; 87077; 87186; 87205; 87426; 87449; 87633; 93005; 94002; 94003; 94640; 94667; 94668; 97110; 97116; 97162; 97166; 97530; 97535; 99251; 99285; J7040; J7050; Q9967; A4216; G0463; J1940

== ENCOUNTER → 2021-02-26 14:46 | Outpatient (CLI) | payer MEDICARE, SELFPAY ==
[2021-02-26 17:06] LABS: Anion Gap 5 (5-15); BUN 8 mg/dL (7-18); BUN/Creat Ratio 10.3 RATIO (10-20); Calcium,Total 9.1 mg/dL (8.5-10.1); Chloride 105 mmol/L (98-107); Creatinine, Serum 0.78 mg/dL (0.55-1.02); EST Glomerular Filtration Rate 78 mL/min (>60); Est Glom Filt Rate - Afr Amer 94 mL/min (>60); Glucose 127 mg/dL (74-106); Sodium Level 139 mmol/L (136-145)
== END ==
PROVIDERS: PCP Internal Medicine; Referring Provider Nurse Practitioner Family; Visit Provider Nurse Practitioner Family
DX: U07.1 COVID-19 (principal); J12.82 Pneumonia due to coronavirus disease 2019; E03.9 Hypothyroidism, unspecified; G47.33 Obstructive sleep apnea (adult) (pediatric)
CPT/HCPCS: 36415; 80048; 84443

== ENCOUNTER 2021-04-16 11:15 | Outpatient (RCR) | payer MEDICARE, MEDICAID, SELFPAY ==
[2021-04-08 09:13] VITALS: BP 170/73; PULSE 78; TEMP 35.7; BMI 47.1
--- NOTE | 2021-04-08 10:30 | PCM.WC.HP ---
History of Present Illness Date of Service: 04/08/21 Chief Complaint: Bilateral lower extremity swelling, edema, lymphedema, and blistering History of Wound: This is a 71-year-old female who presents with swelling, edema, and lymphedema in her lower extremities bilaterally. This is a process which has been ongoing for many years. The patient has recently been hospitalized for Covid and pneumonia approximately 6 weeks ago. As result with her interface with medical practitioners, she has been referred to the [facility] for evaluation and management of her lower extremity symptoms and manifestations. Patient is morbidly obese with a BMI of 47.1. She is relatively inactive. She sleeps in a recliner at night. She sits idly throughout the day, with a minimum of activity. She denies a history of lower extremity thrombophlebitis. Recent laboratory studies have been reviewed, and are as follows: Glucose 127, BUN 8, creatinine 0.78, calcium 9.1, sodium 139, potassium 4.0, chloride 105, TSH 2.20, white blood count 4.5, hemoglobin 13.6, hematocrit 44.5, platelets 296,000. Patient suffers from multiple medical problems, listed below. [facility] Medical History (Updated 04/08/21 @ 10:[address] Tj Saenz MD) Asthma Bilateral lower extremity edema CHF (congestive heart failure) CHF (congestive heart failure) Chronic respiratory failure with hypoxia COPD (chronic obstructive pulmonary disease) COPD (chronic obstructive pulmonary disease) Depression Diabetes mellitus type 2 in obese Difficulty swallowing Dyslipidemia GERD (gastroesophageal reflux disease) HTN (hypertension) Hypothyroid Hypothyroidism Inactivity Leg swelling Lymphedema Morbid obesity with BMI of 45.0-49.9, adult DOLORES (obstructive sleep apnea) Pneumonia due to COVID-19 virus Type 2 diabetes mellitus Ulcer of right lower extremity Home Medications albuterol sulfate 2 inh INHALATION 4X/DAY PRN 01/31/21 [History Last Taken Unknown] furosemide 40 mg PO DAILY 01/31/21 [History Last Taken Unknown] oxybutynin chloride 5 mg PO DAILY 01/31/21 [History Last Taken Unknown] spironolactone 25 mg PO DAILY 01/31/21 [History Last Taken Unknown] guaifenesin [Mucus Relief ER] 1,200 mg PO BID #10 tab 02/05/21 [Rx Last Taken Unknown] levothyroxine 100 mcg tablet 100 mcg PO DAILY #90 tab 02/26/21 [Rx Last Taken Unknown] metformin 500 mg tablet 500 mg PO BID #180 tab 03/18/21 [Rx Last Taken Unknown] omeprazole 40 mg capsule,delayed release 40 mg PO DAILY #60 cap 03/18/21 [Rx Last Taken Unknown] dicloxacillin 250 mg PO Q6H 04/08/21 [History Last Taken Unknown] duloxetine 60 mg PO DAILY 04/08/21 [History Last Taken Unknown] oxybutynin chloride 5 mg PO BID 04/08/21 [History Last Taken Unknown] Allergy/AdvReac Type Severity Reaction Status Date / Time aspirin AdvReac Abd Verified 03/18/21 08:20 cramps/diarrhea codeine AdvReac Abd Verified 03/18/21 08:20 cramps/diarrhea Penicillins AdvReac Hives Verified 04/08/21 09:52 Family History Grandfather Cancer Daughter Ovarian cancer Brother Diabetes Kidney disease Social History Smoking Status: Former smoker Tobacco: How many years used: 30 how long ago did patient quit smokin years alcohol intake: never substance use type: does not use what type of physical activity do you participate in: none Vital Signs Vital Signs Vital Signs: 04/08/21 09:13 Temperature 96.2 F L Temperature Source Temporal Pulse Rate 78 Blood Pressure 170/73 H Blood Pressure Mean 105 Blood Pressure Source Monitor Weight Weight: 292 lb Body Mass Index (BMI) 47.1 Physical Exam Const alert, oriented x3, no apparent distress and well nourished Constitutional Narrative: The patient is morbidly obese. General Appearance: cooperative, comfortable and well developed Orientation / Consciousness: awake, oriented to person, oriented to place and oriented to time Nutritional Appearance: obese HEENT normocephalic and head/scalp atraumatic Head and Scalp: normal to inspection, normocephalic and atraumatic External Ear: external ears normal Eyes PERRL and EOMs intact bilaterally General Eye: normal appearance of both eyes Resp normal respiratory effort, normal air movement, no retractions and no use of accessory muscles Effort and Inspection: able to speak in complete sentences Extremity no calf tenderness Extremity Narrative: Both lower extremities demonstrate swelling, edema, and lymphedema. There is a slight diffuse, inflammatory erythema bilaterally in the gaiter areas. Small scattered unroofed blisters are noted bilaterally. There are no bianca open wounds of any significance. General Extremity: Negative for clubbing or cyanosis Skin Wound Narrative: A few scattered unroofed blisters are noted bilaterally. No bianca open wounds or ulcerations of any significance are noted. Neuro oriented x3, CN's II-XII intact bilaterally and moves all extremities Sensorium / Orientation: awake, alert, oriented to person, oriented to place and oriented to time Psych Appearance: grossly normal and appropriate Attitude: calm Activity / Motor Behavior: appropriate eye contact Speech: normal speech Mood & Affect: euthymic mood Thought Process: normal thought process Thought Content: normal thought content Attention / Concentration: attention grossly intact Debridement Note Debridement Note No debridement was completed: No debridement was completed today Post-Debridement Measurements and Additional Note: Post-Debridement Measurements/Treatment WC - Nurse 1 - General Ulcer Assessment Start: 04/08/21 09:13 Freq: Status: Active Protocol: KELSEY Activity Type Activity Date Activity User E-Sign Co-Sign Detail Recorded Client Recorded Date Recorded By Document 04/08/21 09:13 [email or web address] [id number] 04/08/21 09:32 AK 04/08/21 09:13 WC - Today's Visit Information Type of service Initial Visit Arrival Mode Ambulatory Patient Identification Verified (Name & Yes ) Patient Requires Transmission-Based No Precautions Safety Precautions NA Height and Weight Height 5 ft 6 in Weight 292 lb Weight in Pounds 292.0 lbs Weight Measurement Method Estimated by Patient Body Mass Index (BMI) 47.1 BMI Classification Obese BSA - Marie 2.35 Vital Signs Temperature (97.8 F-99.1 F) 96.2 F L Temperature Source Temporal Pulse Rate (60-100) 78 Pulse Location Monitor Blood Pressure (90/60-120/80) 170/73 H Blood Pressure Mean 105 Source Monitor History Since Last Visit- (Skip if this is Patient's initial visit) Left Footwear Regular Shoe Right Footwear Regular Shoe - Nurse 1 - General Ulcer Measurement Start: 04/08/21 09:13 Freq: Status: Active Protocol: Activity Type Activity Date Activity User E-Sign Co-Sign Detail Recorded Client Recorded Date Recorded By Document 04/08/21 09:13 AK [id number] 04/08/21 09:32 AK 04/08/21 09:13 Wound Center Nurse 1 #2 Left LE -Combined with other wound No -Current Size (cm) - Length 1.7 -Current Size (cm) - Width 1.6 -Current Size (cm) - Depth 0.1 -Total Square Cm 2.72 -Date of Last Picture (Recall this 04/08/21 field) -Photo Taken Yes -Epithelialization None Present -Tunneling No -Undermining/Tunneling No -Circular Undermining No -Change in Wound Grade/Stage No -Exudate Amt Medium -Exudate Type Purulent -Granulation Amt None Present (0 %) -Granulation Quality N/A -Slough/Fibrin No -Necrosis Amt None Present (0 %) -Structure Exposed N/A -Texture (Adrianna-wound Skin Appearance) Assessed, Localized Edema -Moisture (Adrianna-wound Skin Appearance) Assessed, Weeping,Dry/ Scaly -Color (Adrianna-wound Skin Appearance) Assessed, Erythema -Temperature (Adrianna-wound Skin Hot Appearance) -Tenderness on Palpation (Adrianna-wound Yes Skin Appearance) -Ulcer Cleansing Soap and Water -Foul Odor after Cleansing No -Anesthetic Used 4% Lidocaine Solution #1 Right Lower Extremity circumferential -Combined with other wound No -Current Size (cm) - Length 17 -Current Size (cm) - Width 7.5 -Current Size (cm) - Depth 0.1 -Total Square Cm 127.5 -Date of Last Picture (Recall this 04/08/21 field) -Photo Taken Yes -Epithelialization None Present -Tunneling No -Undermining/Tunneling No -Circular Undermining No -Exudate Amt Medium -Exudate Type Purulent -Wound Margin Distinct, Outline Attached -Granulation Amt None Present (0 %) -Slough/Fibrin No -Necrosis Amt None Present (0 %) -Structure Exposed N/A -Texture (Adrianna-wound Skin Appearance) No Abnormality, Assessed, Localized Edema -Moisture (Adrianna-wound Skin Appearance) Assessed, Weeping -Color (Adrianna-wound Skin Appearance) Assessed -Temperature (Adrianna-wound Skin Hot Appearance) -Tenderness on Palpation (Adrianna-wound Yes Skin Appearance) -Ulcer Cleansing Soap and Water -Foul Odor after Cleansing No -Anesthetic Used 4% Lidocaine Solution Lower Limb Edema Present No Right Calf (cm) 58.4 Right Ankle (cm) 30.6 Left Calf (cm) 55.1 Left Ankle (cm) 29.9 Assessment/Plan Assessment/Plan (1) Leg swelling: CODE(S): M79.89 - Other specified soft tissue disorders (2) Bilateral lower extremity edema: CODE(S): R60.0 - Localized edema (3) Lymphedema: CODE(S): I89.0 - Lymphedema, not elsewhere classified (4) Inactivity: CODE(S): Z72.3 - Lack of physical exercise (5) Morbid obesity with BMI of 45.0-49.9, adult: CODE(S): E66.01 - Morbid (severe) obesity due to excess calories; Z68.42 - Body mass index [BMI] 45.0-49.9, adult (6) HTN (hypertension): CODE(S): I10 - Essential (primary) hypertension (7) GERD (gastroesophageal reflux disease): CODE(S): K21.9 - Gastro-esophageal reflux disease without esophagitis (8) Difficulty swallowing: CODE(S): R13.10 - Dysphagia, unspecified QUALIFIERS: Dysphagia type: unspecified Qualified Code(s): R13.10 - Dysphagia, unspecified (9) Depression: CODE(S): F32.9 - Major depressive disorder, single episode, unspecified (10) Type 2 diabetes mellitus: CODE(S): E11.9 - Type 2 diabetes mellitus without complications (11) Chronic respiratory failure with hypoxia: CODE(S): J96.11 - Chronic respiratory failure with hypoxia (12) CHF (congestive heart failure): CODE(S): I50.9 - Heart failure, unspecified (13) DOLORES (obstructive sleep apnea): CODE(S): G47.33 - Obstructive sleep apnea (adult) (pediatric) (14) Hypothyroidism: CODE(S): E03.9 - Hypothyroidism, unspecified (15) COPD (chronic obstructive pulmonary disease): CODE(S): J44.9 - Chronic obstructive pulmonary disease, unspecified (16) Asthma: CODE(S): J45.909 - Unspecified asthma, uncomplicated PLAN: This is a 71-year-old female with multiple pre-existing medical problems. The patient has had swelling, edema, and lymphedema in both lower extremities for many years. The patient is relatively inactive. She sleeps in a recliner. She spends long hours each day sitting idly. Patient is morbidly obese. It appears as though this constellation of conditions has resulted in chronic swelling, edema, and lymphedema in her lower extremities bilaterally. She presents with these manifestations, as last recent blistering and mild inflammatory erythema in the gaiter areas bilaterally. Recent laboratory results have been reviewed. A lengthy discussion has been undertaken with the patient and with her as to the appropriate conservative treatment measures relative to the swelling and edema in the patient's lower extremities. Patient is to make efforts to sleep with her legs elevated. She has been sleeping in a recliner due to breathing problems. She has been encouraged to sleep with her legs level with her heart, or higher. Legs are to be elevated to heart level, or higher, as much as possible even during daytime hours. She has been discouraged from sitting idly for much of the day. Activity has been encouraged. Weight loss has also been strongly encouraged. We are to implement compression to the patient's lower extremities by means of Unna boots applied bilaterally, which will be changed twice weekly. We are to obtain a noninvasive lower extremity arterial study to assess arterial perfusion in the lower extremity, to assure that there are no contraindications to long-term compression therapy. Patient is to return in 1 week for reassessment. Total time 65 minutes
[2021-04-11 13:56] VITALS: BP 162/69; PULSE 72; TEMP 36.2; BMI 47.1
[2021-04-16 11:36] VITALS: BP 138/87; PULSE 100; TEMP 36; BMI 47.1
--- NOTE | 2021-04-16 12:30 | PCM.WC.HP ---
History of Present Illness Date of Service: 04/16/21 Chief Complaint: Bilateral lower extremity swelling, edema, lymphedema History of Wound: This is a 71-year-old female who presents with swelling, edema, and lymphedema in her lower extremities bilaterally. This is a process which has been ongoing for many years. The patient has recently been hospitalized for Covid and pneumonia approximately 6 weeks ago. As result with her interface with medical practitioners, she has been referred to the [facility] for evaluation and management of her lower extremity symptoms and manifestations. Patient is morbidly obese with a BMI of 47.1. She is relatively inactive. She sleeps in a recliner at night. She sits idly throughout the day, with a minimum of activity. She denies a history of lower extremity thrombophlebitis. Recent laboratory studies have been reviewed, and are as follows: Glucose 127, BUN 8, creatinine 0.78, calcium 9.1, sodium 139, potassium 4.0, chloride 105, TSH 2.20, white blood count 4.5, hemoglobin 13.6, hematocrit 44.5, platelets 296,000. Patient suffers from multiple medical problems, listed below. [facility] Medical History Asthma Bilateral lower extremity edema CHF (congestive heart failure) CHF (congestive heart failure) Chronic respiratory failure with hypoxia COPD (chronic obstructive pulmonary disease) COPD (chronic obstructive pulmonary disease) Depression Diabetes mellitus type 2 in obese Difficulty swallowing Dyslipidemia GERD (gastroesophageal reflux disease) HTN (hypertension) Hypothyroid Hypothyroidism Inactivity Leg swelling Lymphedema Morbid obesity with BMI of 45.0-49.9, adult DOLORES (obstructive sleep apnea) Pneumonia due to COVID-19 virus Type 2 diabetes mellitus Ulcer of right lower extremity Home Medications albuterol sulfate 2 inh INHALATION 4X/DAY PRN 01/31/21 [History Last Taken Unknown] furosemide 40 mg PO DAILY 01/31/21 [History Last Taken Unknown] oxybutynin chloride 5 mg PO DAILY 01/31/21 [History Last Taken Unknown] spironolactone 25 mg PO DAILY 01/31/21 [History Last Taken Unknown] guaifenesin [Mucus Relief ER] 1,200 mg PO BID #10 tab 02/05/21 [Rx Last Taken Unknown] levothyroxine 100 mcg tablet 100 mcg PO DAILY #90 tab 02/26/21 [Rx Last Taken Unknown] metformin 500 mg tablet 500 mg PO BID #180 tab 03/18/21 [Rx Last Taken Unknown] omeprazole 40 mg capsule,delayed release 40 mg PO DAILY #60 cap 03/18/21 [Rx Last Taken Unknown] dicloxacillin 250 mg PO Q6H 04/08/21 [History Last Taken Unknown] duloxetine 60 mg PO DAILY 04/08/21 [History Last Taken Unknown] oxybutynin chloride 5 mg PO BID 04/08/21 [History Last Taken Unknown] Allergy/AdvReac Type Severity Reaction Status Date / Time aspirin AdvReac Abd Verified 03/18/21 08:20 cramps/diarrhea codeine AdvReac Abd Verified 03/18/21 08:20 cramps/diarrhea Penicillins AdvReac Hives Verified 04/08/21 09:52 Family History Grandfather Cancer Daughter Ovarian cancer Brother Diabetes Kidney disease Social History Smoking Status: Former smoker Tobacco: How many years used: 30 how long ago did patient quit smokin years alcohol intake: never substance use type: does not use what type of physical activity do you participate in: none ROS Constitutional Constitutional: Reports fatigue and malaise Eyes Eyes: Denies blurry vision or change in vision ENT HEENT: Denies dysphagia, headache(s) or loss taste/smell Cardiovascular Cardiovascular: Reports dyspnea; Denies chest pain Respiratory/Chest Respiratory/Chest: Reports cough and dyspnea Gastrointestinal Gastrointestinal: Denies abdominal pain, diarrhea, nausea or vomiting Genitourinary Genitourinary: Denies difficulty urinating Musculoskeletal Musculoskeletal: Denies arthralgias or back pain Integumentary Integumentary: Denies lesions, rash or skin ulcer Neurologic Neurologic: Denies abnormal gait or abnormal speech Psychiatric Psychiatric: Denies anxiety or depression Endocrine Endocrinology: Reports fatigue Hematologic/Lymphatic Hematologic/Lymphatic: Denies easy bleeding or easy bruising Vital Signs Vital Signs Vital Signs: 04/16/21 11:36 Temperature 96.8 F L Temperature Source Oral Pulse Rate 100 Blood Pressure 138/87 H Blood Pressure Mean 104 Blood Pressure Source Monitor Blood Pressure Position Semi-Fowlers Blood Pressure Location Right Arm Weight Weight: 292 lb Body Mass Index (BMI) 47.1 Physical Exam Const alert, oriented x3, no apparent distress and well nourished Constitutional Narrative: The patient is morbidly obese. General Appearance: cooperative, comfortable and well developed Orientation / Consciousness: awake, oriented to person, oriented to place and oriented to time Nutritional Appearance: obese HEENT normocephalic and head/scalp atraumatic Head and Scalp: normal to inspection, normocephalic and atraumatic External Ear: external ears normal Eyes PERRL and EOMs intact bilaterally General Eye: normal appearance of both eyes Resp normal respiratory effort, normal air movement, no retractions and no use of accessory muscles Effort and Inspection: able to speak in complete sentences Extremity no calf tenderness Extremity Narrative: Both lower extremities demonstrate swelling, edema, and lymphedema. There is a slight diffuse, inflammatory erythema bilaterally in the gaiter areas. Small scattered unroofed blisters are noted bilaterally. There are no bianca open wounds of any significance. General Extremity: Negative for clubbing or cyanosis Skin Wound Narrative: A few scattered unroofed blisters are noted bilaterally. No bianca open wounds or ulcerations of any significance are noted. Neuro oriented x3, CN's II-XII intact bilaterally and moves all extremities Sensorium / Orientation: awake, alert, oriented to person, oriented to place and oriented to time Psych Appearance: grossly normal and appropriate Attitude: calm Activity / Motor Behavior: appropriate eye contact Speech: normal speech Mood & Affect: euthymic mood Thought Process: normal thought process Thought Content: normal thought content Attention / Concentration: attention grossly intact Debridement Note Debridement Note No debridement was completed: No debridement was completed today Medical Records Data Attestation: I reviewed the patient's medical records Lab / Micro Data Attestation: I reviewed the patient's lab results. Assessment/Plan Assessment/Plan (1) Leg swelling: CODE(S): M79.89 - Other specified soft tissue disorders PLAN: Continue Aldo wraps to bilateral lower legs and referred to lymphedema clinic We will get arterial brachial and venous studies and call patient with results If referrals necessary will refer her Patient will be discharged from the wound center and referred over to [place] for further studies and possibly pumps. (2) Morbid obesity with BMI of 45.0-49.9, adult: CODE(S): E66.01 - Morbid (severe) obesity due to excess calories; Z68.42 - Body mass index [BMI] 45.0-49.9, adult (3) Lymphedema: CODE(S): I89.0 - Lymphedema, not elsewhere classified
== END 2021-04-16 12:14 | disposition home or self-care (01) ==
LOC: WC 11:15
PROVIDERS: PCP Internal Medicine; Visit Provider Nurse Practitioner
DX: I89.0 Lymphedema, not elsewhere classified (principal); E66.01 Morbid (severe) obesity due to excess calories; Z68.42 Body mass index [BMI] 45.0-49.9, adult; Z86.16 Personal history of COVID-19; E11.9 Type 2 diabetes mellitus without complications; E03.9 Hypothyroidism, unspecified; E78.5 Hyperlipidemia, unspecified; G47.33 Obstructive sleep apnea (adult) (pediatric); I11.0 Hypertensive heart disease with heart failure; I50.9 Heart failure, unspecified; K21.9 Gastro-esophageal reflux disease without esophagitis; J44.9 Chronic obstructive pulmonary disease, unspecified; Z79.899 Other long term (current) drug therapy; Z79.84 Long term (current) use of oral hypoglycemic drugs; Z79.890 Hormone replacement therapy; Z87.891 Personal history of nicotine dependence; M79.89 Other specified soft tissue disorders
CPT/HCPCS: 29580; 99212; 99213; G0463

== ENCOUNTER → 2021-04-18 20:36 | Outpatient (CLI) | payer MEDICARE, MEDICAID, SELFPAY | PROVIDERS: PCP Internal Medicine; Visit Provider Nurse Practitioner Acute Care | DX: G47.33 Obstructive sleep apnea (adult) (pediatric) (principal) | CPT/HCPCS: 95811 ==

== ENCOUNTER → 2021-04-22 10:13 | Outpatient (CLI) | payer MEDICARE, SELFPAY ==
[2021-04-22 12:22] LABS: Absolute Lymphocyte Count 2.32 X10^3/uL (0.83-4.51); Absolute Neutrophil Count 2.6 X10^3/uL (2.0-7.7); Basophil# 0.08 X10^3/uL; Basophil% 1.4 % (0-1); Eosinophil# 0.32 X10^3/uL; Eosinophils% 5.4 % (0-5); Hematocrit 43.5 % (37-47); Hemoglobin 13.8 g/dL (12.0-15.0); Lymphocyte # 2.32 X10^3/ul (0.83-4.51); Lymphocyte % 39.5 % (19-41); Mean Corp Hgb Conc 31.7 g/dL (32-36); Mean Corpuscular Hgb 27.1 pg (27.0-32.0); Mean Corpuscular Volume 85.5 fL (81-99); Monocyte# 0.52 X10^3/uL; Monocyte% 8.8 % (0-10); NRBC Flagged by Analyzer 0 % (0-5); Neutrophil # 2.62 X10^3/uL (2.7-7.7); Neutrophil % 44.6 % (47-70); Platelet Count 240 K/mm3 (150-450); RBC Distribution Width CV 14.6 % (11.6-14.6); RBC Distribution Width SD 45.6 fl (35.1-43.9); Red Blood Count 5.09 M/mm3 (4.2-5.4); White Blood Count 5.9 K/mm3 (4.4-11.0)
[2021-04-22 12:35] LABS: ALB/GLOB Ratio 0.8 RATIO (0.9-2.4); AST(SGOT) 15 U/L (15-37); Alanine Aminotransfer ALT/SGPT 18 U/L (13-56); Albumin, Serum 3.1 g/dL (3.2-5.0); Alkaline Phosphatase 71 U/L (45-117); Anion Gap 7 (5-15); BUN 17 mg/dL (7-18); BUN/Creat Ratio 17.5 RATIO (10-20); Calcium,Total 9.2 mg/dL (8.5-10.1); Chloride 107 mmol/L (98-107); Creatinine, Serum 0.97 mg/dL (0.55-1.02); EST Glomerular Filtration Rate 60 mL/min (>60); Est Glom Filt Rate - Afr Amer 73 mL/min (>60); Globulin 3.9 g/dL (2.2-4.2); Glucose 116 mg/dL (74-106); Potassium 3.8 mmol/L (3.5-5.1); Sodium Level 141 mmol/L (136-145)
[2021-04-22 12:41] LABS: Hemoglobin A1c 5.9 % (3.8-5.6)
== END ==
PROVIDERS: PCP Internal Medicine; Referring Provider Internal Medicine; Visit Provider Internal Medicine
DX: I10 Essential (primary) hypertension (principal); E11.9 Type 2 diabetes mellitus without complications
CPT/HCPCS: 36415; 80053; 83036; 85025

== ENCOUNTER 2021-04-30 10:19 | Outpatient (RCR) | payer MEDICARE, MEDICAID, SELFPAY ==
--- NOTE | 2021-04-30 12:34 | HP.OTEVAL_ITS ---
Patient's Visit Information JERRY BRO is a 71 year old F, referred to Occupational Therapy by April Reinoso, KIM-C, with a diagnosis of BLE lymphedema. Date of Evaluation: 04/30/21 Occupational Therapist: Tamika Clounga, RAEANNR/Ana, CHT - Subjective This 71 year old female was seen for OT eval with dx of BLE lymphedema. Pt state s she was in the hospital with COVID 2020. pt states right leg started draining about two weeks- pt states she has been dx with cellulitis in feb. states she did go to wound center was able to get wounds closed with jeannine-boot use- pt was released about two weeks ago and during this time she sopped wrapping her legs- lets increase in size and are red and right is sore to touch- supportive and assist pt with LB dress- pt states she [place] compression [place] but they rolled down and she didn't wear them. pt would like to know what she can do to mtg her leg swelling. - Objective legs red and dry skin - Lymphedema (Circumferential Measure) Mid-foot: right 24cm left 24cm Ankle: right 37 left 36 Lower calf: right 34cm 30 Largest calf: right 59 left 54 Below knee: right 57 left 57 - Lower Limb Functional Index Lower Extremity Functional Score: 19 - Goals Demonstrate a 20% reduction in edema by d/c: Yes Demonstrate adequate knowledge of self-bangaging by 1st week: Yes Demonstrate adequate knowledge skin care/prec by 2nd week: Yes Demonstrate adequate knowledge therapeutic exercises by d/c: Yes Select approp compression garment w/donning/care/wear by d/c: Yes Voice need to replace compression garment every 4-6mo by dc: Yes Goal:: pt demo understanding to measure legs daily-. pt demo understanding of her HEP - Rehabilitation General Assessment: pt arrives to session with her - pt demo difficulty with ambulation and SOB in the dept. pt demo with red flakey skin and edema- pt states she has not wrapped her legs in at lease two weeks. pt demo limited understanding of dx and treatment options. pt would benefit from skilled OT services to ed pt on HEP for lymphedema mtg and compression alternative- the need to continue with wrapping her legs until she can fit into compression socks 30-40 mmHg, or compression alternatives with Velcro closures. pt and pts spouse demonstrated the understanding and agree to pursue compression devices, mtg her skin care and initiate lymph stim exercise. pt may benefit from compression devices as a compression pump but due to her CHF dx may need cleared by devulcanizer loader first- pt stated she did have dr. alvarado this week but wasnt sure who she was seeing- pt to call with questions on her HEP otherwise pt agree to HEP. Rehabilitation Potential: Questionable - Anticipated Interventions Education re assistive Equipment, Education re Diagnosis, Education re Life-long lymphedema Management, Education re Self-Bandaging Techniques, Education re Skin Care and Precautions, Education re Self Massage Techniques, Education re Correct Donning Tech,Care&Wearing Sched Comp Garments, Caregiver Training, Home Program - Visit Plan TEXT: Thank you for the opportunity to evaluate your patient. For Medicare and Medicare HMO plans, please review the plan of care and approve it. It will need to be FAXED BACK to us at [phone] for Medicare purposes. Please let me know if there are questions or concerns regarding this plan of care. Physician Signature: Date:
--- NOTE | 2021-07-10 11:48 | HP.OTDCNRP_ITS ---
JERRY BRO was seen in my office for initial evaluation on 04/30/21. The following Plan of Care was established for this patient: Anticipated Interventions: Education re assistive Equipment, Education re Diagnosis, Education re Life-long lymphedema Management, Education re Self- Bandaging Techniques, Education re Skin Care and Precautions, Education re Self Massage Techniques, Education re Correct Donning Tech,Care&Wearing Sched Comp Garments, Caregiver Training, Home Program This patient was last seen in our office 04/30/21. Pertinent comments regarding their Occupational therapy will appear below: pt was seen for OT eval only- no further apts were scheduled and due to time lapse in services pt d.c. At this point I will be discontinuing this patient from occupational therapy. I would be happy to see this patient again in the future if found appropriate by the physician. Thank you! Tamika Colunga, OTR/L, CHT
== END 2021-04-30 19:00 | disposition home or self-care (01) ==
LOC: OT 10:19
PROVIDERS: PCP Internal Medicine; Referring Provider Nurse Practitioner; Visit Provider Nurse Practitioner
DX: I89.0 Lymphedema, not elsewhere classified (principal)
CPT/HCPCS: 97166

== ENCOUNTER → 2021-05-07 16:44 | Outpatient (CLI) | payer MEDICARE, SELFPAY ==
[2021-05-07 17:24] LABS: BNP,B-Type NATRIURETIC PEPTIDE 56.7 pg/mL (0-100)
== END ==
PROVIDERS: PCP Internal Medicine; Visit Provider Internal Medicine Cardiovascular Disease
DX: R06.02 Shortness of breath (principal)
CPT/HCPCS: 36415; 83880

== ENCOUNTER → 2021-05-29 11:05 | Outpatient (CLI) | payer MEDICARE, MEDICAID, SELFPAY ==
[2021-05-29 11:15] VITALS: PULSE 100; PULSE 107; PULSE 78; PULSE 80; PULSE 90; PULSE 91; O2SAT 89; O2SAT 90; O2SAT 91; O2SAT 92; O2SAT 94
--- NOTE | 2021-05-29 14:58 | WT_ITS ---
PSN 6 Minute Walk Test 6 Minute Walk Test 6 Minute Walk Test: 6 Minute Walk Test PSN:6-Minute Walk Test Start: 05/29/21 12:10 Freq: Status: Active Protocol: RESP.6MINW Document 05/29/21 11:15 EW (Rec: 05/29/21 12:19 EW [id number]) 6 Minute Walk Test Date Performed 05/29/21 Time Performed 11:15 Height 5 ft 6 in Weight: 133.81 kg Weight in Pounds 295.[address]: Dianne De Los Santos FILL TECHNICIAN Assistive device used: None Pre-test Oxygen Delivery Method Room Air Pulse Ox (%) 94 Pulse Rate (60-100 beats/min) 78 Dyspnea Dorcas Scale (0-10) 1 Exertion Dorcas Scale (6-20) 8 1st minute Oxygen Delivery Method Room Air Pulse Ox (%) 91 Pulse Rate (60-100 beats/min) 91 Number of Rests Taken 1 Reported Symptoms Increased Work of Breathing 2nd minute Oxygen Delivery Method Room Air Pulse Ox (%) 92 Pulse Rate (60-100 beats/min) 100 Number of Rests Taken 1 Reported Symptoms Increased Work of Breathing 3rd minute Oxygen Delivery Method Room Air Pulse Ox (%) 90 Pulse Rate (60-100 beats/min) 90 4th minute Oxygen Delivery Method Room Air Pulse Ox (%) 91 Pulse Rate (60-100 beats/min) 90 Number of Rests Taken 1 Reported Symptoms Increased Work of Breathing 5th minute Oxygen Delivery Method Room Air Pulse Ox (%) 89 Pulse Rate (60-100 beats/min) 90 6th minute Oxygen Delivery Method Room Air Pulse Ox (%) 91 Pulse Rate (60-100 beats/min) 107 H Post-test Oxygen Delivery Method Room Air Pulse Ox (%) 90 Pulse Rate (60-100 beats/min) 80 Dyspnea Dorcas Scale (0-10) 5 Exertion Dorcas Scale (6-20) 16 Full Laps Walked 5 Partial Lap, Number of Tiles Walked 0 Total Distance Walked (ft) 295 Interpretation Interpretation: The patient was able to ambulate 295 feet over the course of 6 minutes on room air with the assistance of 3 breaks. The patient did have significant alexandre aturation from a baseline of 94% to as low as 89% with some reflexive tachycardia as high as 107 bpm. These findings are consistent with a respiratory limitation exercise tolerance. Recommendations Recommendations: The patient requires no supplemental oxygen at this time, but needs to be followed closely given desaturation and minimal distance traveled.
== END ==
PROVIDERS: PCP Internal Medicine; Referring Provider Nurse Practitioner Acute Care; Visit Provider Nurse Practitioner Acute Care
DX: R06.02 Shortness of breath (principal)
CPT/HCPCS: 94618

== ENCOUNTER → 2021-06-16 09:37 | Outpatient (CLI) | payer MEDICARE, SELFPAY | PROVIDERS: PCP Internal Medicine; Referring Provider Nurse Practitioner Gerontology; Visit Provider Nurse Practitioner Gerontology | DX: R00.2 Palpitations (principal) | CPT/HCPCS: 93225; 93226 ==

== ENCOUNTER 2021-07-22 10:28 | Outpatient (CLI) | payer MEDICARE, SELFPAY ==
[2021-07-22 12:59] LABS: Anion Gap 5 (5-15); BUN 21 mg/dL (7-18); BUN/Creat Ratio 19.8 RATIO (10-20); Calcium,Total 9.4 mg/dL (8.5-10.1); Chloride 104 mmol/L (98-107); Creatinine, Serum 1.06 mg/dL (0.55-1.02); EST Glomerular Filtration Rate 54 mL/min (>60); Est Glom Filt Rate - Afr Amer 66 mL/min (>60); Glucose 131 mg/dL (74-106); Potassium 4.1 mmol/L (3.5-5.1); Sodium Level 139 mmol/L (136-145)
== END 2021-07-22 23:59 | disposition short-term general hospital (02) ==
LOC: BIMLAB 10:29
PROVIDERS: PCP Internal Medicine; Referring Provider Internal Medicine; Visit Provider Internal Medicine
DX: E11.69 Type 2 diabetes mellitus with other specified complication (principal); I10 Essential (primary) hypertension
CPT/HCPCS: 36415; 80048

== ENCOUNTER 2021-09-23 09:57 | Outpatient (CLI) | payer MEDICARE, MEDICAID, SELFPAY ==
--- NOTE | 2021-09-24 09:55 | PFT ---
INTRODUCTION: The patient is a 71-year-old female that presents for pulmonary function studies secondary to a diagnosis of shortness of breath. Respiratory therapy reported good patient effort. Bronchodilators were used during testing. INTERPRETATION: Forced expiration spirometry demonstrates the presence of a moderately severe large airways obstructive ventilatory defect. There was no significant response to aerosolized bronchodilators. Spirograms are of good quality and plateau normally. Body plethysmography was performed and revealed a decreased TLC to 4.16 L, 80% of predicted, indicative of a mild restrictive ventilatory impairment. Diffusing capacity by single breath CO is reduced at 54% of predicted. IMPRESSION: Irreversible moderately severe mixed ventilatory defect with symmetric reduction in diffusing capacity.
== END 2021-09-23 23:59 | disposition home or self-care (01) ==
PROVIDERS: PCP Internal Medicine; Referring Provider Internal Medicine Critical Care Medicine; Visit Provider Internal Medicine Critical Care Medicine
DX: R06.02 Shortness of breath (principal)
CPT/HCPCS: 94060; 94726; 94729

== ENCOUNTER 2021-09-29 12:20 | Outpatient (CLI) | payer MEDICARE, MEDICAID, SELFPAY ==
[2021-09-29 12:30] VITALS: PULSE 107; PULSE 129; PULSE 139; PULSE 142; PULSE 147; PULSE 156; PULSE 89; O2SAT 89; O2SAT 90; O2SAT 91; O2SAT 92; O2SAT 93; O2SAT 95
--- NOTE | 2021-09-29 12:54 | CPS ---
PATIENT WEARS 3L PRN AND AT NIGHT CURRENTLY. TEST WAS INITIATED ON ROOM AIR, SAT'S AT REST WERE 91%. AT THE ONE MINUTE JUHI, PATIENTS SAT'S DROPPED TO 88-87%, THEREFORE OXYGEN WAS STARTED ON 2L. SAT'S WERE MAINTAINED ABOVE 90% FOR THE REMAINDER OF THE TEST ON 2L
--- NOTE | 2021-09-29 13:11 | WT_ITS ---
PSN 6 Minute Walk Test 6 Minute Walk Test 6 Minute Walk Test: 6 Minute Walk Test PSN:6-Minute Walk Test Start: 09/29/21 12:51 Freq: Status: Active Protocol: RESP.6MINW Document 09/29/21 12:30 HJ (Rec: 09/29/21 12:57 [id number]) 6 Minute Walk Test Date Performed 09/29/21 Time Performed 12:30 Height 5 ft 6 in Weight: 132.903 kg Weight in Pounds 293.[address]: Jori Sterling FIO2 (% Oxygen) 28 Assistive device used: None Pre-test Oxygen Delivery Method Room Air Pulse Ox (%) 91 Pulse Rate (60-100 beats/min) 89 1st minute Oxygen Flow Rate (L/min) (L/min) 2 Oxygen Delivery Method Nasal Cannula Pulse Ox (%) 89 Pulse Rate (60-100 beats/min) 139 H 2nd minute Oxygen Flow Rate (L/min) (L/min) 2 Oxygen Delivery Method Nasal Cannula Pulse Ox (%) 93 Pulse Rate (60-100 beats/min) 129 H 3rd minute Oxygen Flow Rate (L/min) (L/min) 2 Oxygen Delivery Method Nasal Cannula Pulse Ox (%) 92 Pulse Rate (60-100 beats/min) 142 H 4th minute Oxygen Flow Rate (L/min) (L/min) 2 Oxygen Delivery Method Nasal Cannula Pulse Ox (%) 91 Pulse Rate (60-100 beats/min) 147 H 5th minute Oxygen Flow Rate (L/min) (L/min) 2 Oxygen Delivery Method Nasal Cannula Pulse Ox (%) 90 Pulse Rate (60-100 beats/min) 147 H 6th minute Oxygen Flow Rate (L/min) (L/min) 2 Oxygen Delivery Method Nasal Cannula Pulse Ox (%) 91 Pulse Rate (60-100 beats/min) 156 H Post-test Oxygen Flow Rate (L/min) (L/min) 2 Oxygen Delivery Method Nasal Cannula Pulse Ox (%) 95 Pulse Rate (60-100 beats/min) 107 H Dyspnea Dorcas Scale (0-10) 3 Exertion Dorcas Scale (6-20) 13 Full Laps Walked 8 Partial Lap, Number of Tiles Walked 20 Total Distance Walked (ft) 492 09/29/21 12:54 Cardiopulmonary Services by Lor Hernandez PATIENT WEARS 3L PRN AND AT NIGHT CURRENTLY. TEST WAS INITIATED ON ROOM AIR, SAT'S AT REST WERE 91%. AT THE ONE MINUTE JUHI, PATIENTS SAT'S DROPPED TO 88- 87%, THEREFORE OXYGEN WAS STARTED ON 2L. SAT'S WERE MAINTAINED ABOVE 90% FOR THE REMAINDER OF THE TEST ON 2L Initialized on 09/29/21 12:54 - END OF NOTE Interpretation Interpretation: The patient was noted to be 91% on room air at rest, but desaturated in the first minute of ambulation. Patient required 2 L/min to maintain saturations throughout testing. Patient was noted to have significant elevation in heart rate as high as 156 bpm. In total, the patient traveled 492 feet over the course of 6 minutes with no assistive devices and 5 breaks. These findings are consistent with a cardiovascular limitation exercise tolerance. Recommendations Recommendations: The patient requires no supplemental oxygen at rest, but should be using 2 L nasal cannula with any exertion. Patient would likely benefit from cardiac optimization.
== END 2021-09-29 23:59 | disposition home or self-care (01) ==
LOC: PSN 12:22
PROVIDERS: PCP Internal Medicine; Referring Provider Internal Medicine Critical Care Medicine; Visit Provider Internal Medicine Critical Care Medicine
DX: R06.02 Shortness of breath (principal)
CPT/HCPCS: 94618

== ENCOUNTER → 2021-10-29 | Outpatient (CLI) | payer MEDICARE, MEDICAID, SELFPAY ==
[2021-10-29 15:31] LABS: Anion Gap 6 (5-15); BUN 16 mg/dL (7-18); BUN/Creat Ratio 18.3 RATIO (10-20); Chloride 103 mmol/L (98-107); Creatinine, Serum 0.87 mg/dL (0.55-1.02); EST Glomerular Filtration Rate 68 mL/min (>60); Est Glom Filt Rate - Afr Amer 82 mL/min (>60); Glucose 131 mg/dL (74-106); Potassium 4.2 mmol/L (3.5-5.1); Sodium Level 139 mmol/L (136-145)
== END | disposition home or self-care (01) ==
PROVIDERS: PCP Internal Medicine; Referring Provider Internal Medicine; Visit Provider Internal Medicine
DX: I10 Essential (primary) hypertension (principal); R05.9 Cough, unspecified; Z20.822 Contact with and (suspected) exposure to COVID-19
CPT/HCPCS: 36415; 80048; 87635; U0003; U0005

== ENCOUNTER 2021-12-31 01:37 | Emergency (ER) | payer MEDICARE, MEDICAID, SELFPAY ==
[2021-12-31 01:39] VITALS: BP 170/81; PULSE 101; RESP 22; TEMP 37.1; O2SAT 95; BMI 50.0
--- NOTE | 2021-12-31 02:04 | ED.VIS.LOWEX ---
HPI History of Present Illness Chief Complaint: Edema Narrative Narrative: 71-year-old female presenting with lower extremity swelling. She has chronic lymphedema of the lower extremities. She is concerned that she might be developing a cellulitis. She states that she has had the symptoms for 2 weeks. She has been using bacitracin on her legs. She states that she is developed some crusting and some areas of her legs. She states that it is yellow. She denies systemic signs or symptoms. [facility] Medical History Asthma Bilateral lower extremity edema Chronic respiratory failure with hypoxia COPD (chronic obstructive pulmonary disease) Depression Dermatitis Diabetes mellitus type 2 in obese Difficulty swallowing Dyslipidemia Essential hypertension GERD (gastroesophageal reflux disease) Hypothyroidism Inactivity Lymphedema Morbid obesity with BMI of 45.0-49.9, adult DOLORES (obstructive sleep apnea) Pneumonia due to COVID-19 virus (01/30/21) Sore throat Type 2 diabetes mellitus Ulcer of right lower extremity Home Medications spironolactone 25 mg tablet 25 mg PO DAILY COPD 01/31/21 [History Last Taken Unknown] atorvastatin 40 mg tablet 40 mg PO QHS 05/07/21 [History Last Taken Unknown] fenofibrate nanocrystallized 48 mg tablet 48 mg PO DAILY 05/07/21 [History Last Taken Unknown] calcium carb 300 mg-D3 800 unit-mag ox 25 mg-nuclear spectroscopist 0.5 mg-austin-Zn tablet (Caltrate + D3 Plus Minerals) 1 tab PO DAILY 06/09/21 [History Last Taken Unknown] duloxetine 60 mg capsule,delayed release 60 mg PO DAILY #90 caps 07/22/21 [Rx Last Taken Unknown] Nebulizer #1 ea 10/06/21 [Rx Last Taken Unknown] albuterol sulfate 2.5 mg/3 mL (0.083 %) solution for nebulization 2.5 mg (3 mL) inhalation Q4H PRN Sob &/Or Wheezing #180 mL 10/06/21 [Rx Last Taken Unknown] carvedilol 25 mg tablet (Coreg) 25 mg PO BID #180 tabs 10/29/21 [Rx Last Taken Unknown] furosemide 40 mg tablet 40 mg PO BID HEART FAILURE #180 tabs 10/29/21 [Rx Last Taken Unknown] hydrocortisone 2.5 % topical cream 1 applic topical BID PRN skin irritation #28.35 grams 10/29/21 [Rx Last Taken Unknown] levothyroxine 100 mcg tablet 100 mcg PO DAILY HYPOTHYROIDISM #90 tabs 10/29/21 [Rx Last Taken Unknown] metformin 500 mg tablet 1,000 mg PO BID 3 months #360 tabs 10/29/21 [Rx Last Taken Unknown] omeprazole 40 mg capsule,delayed release 40 mg PO DAILY #90 caps 10/29/21 [Rx Last Taken Unknown] oxybutynin chloride 5 mg tablet 5 mg PO BID #180 tabs 10/29/21 [Rx Last Taken Unknown] doxycycline hyclate 100 mg tablet 100 mg PO BID 7 days #14 tabs 12/31/21 [Rx Last Taken Unknown] Allergy/AdvReac Type Severity Reaction Status Date / Time aspirin AdvReac Abd Verified 10/06/21 11:04 cramps/diarrhea codeine AdvReac Abd Verified 10/06/21 11:04 cramps/diarrhea Penicillins AdvReac Hives Verified 10/06/21 11:04 Family History Grandfather Cancer Daughter Ovarian cancer Brother Diabetes Kidney disease Social History Smoking Status: Former smoker Tobacco: How many years used: 30 how long ago did patient quit smokin years alcohol intake: never substance use type: does not use what type of physical activity do you participate in: none ROS ROS ED Constitutional Constitutional ED: Denies chills, fever(s) or sweats Eyes Eyes: Denies blurry vision or change in vision ENT ENT ED: Denies ear pain or sore throat Cardiovascular Cardiovascular: Denies chest pain, palpitations or racing heartbeat Respiratory/Chest Respiratory/Chest: Denies cough, dyspnea or sputum Gastrointestinal Gastrointestinal: Denies abdominal pain, constipation, diarrhea, nausea or vomiting Genitourinary Genitourinary ED: Denies dysuria, hematuria or urinary frequency Musculoskeletal Musculoskeletal: Denies arthralgias, myalgias or neck pain Integumentary Reports rash; Denies abscess or Abrasions Neurologic Neurologic: Denies headache(s), paresthesias or weakness Psychiatric Psychiatric: Denies anxiety, depression, suicidal ideation or suicidal thoughts Endocrine Endocrinology: Denies polydipsia or polyuria EXAM Physical Exam Const Vital Signs: 12/31/21 01:39 12/31/21 01:43 Temperature 98.8 F Temperature Source Temporal Pulse Rate 101 H Respiratory Rate 22 H Respiratory Effort Normal Non-Labored Short of Breath Respiratory Pattern Normal Blood Pressure 170/81 H Blood Pressure Mean 110 Pulse Ox 95 Oxygen Delivery Method Room Air Positive well nourished and obese General Appearance ED: NAD Nutritional Appearance: obese HEENT Reports moist mucous membranes Eyes PERRL Resp normal respiratory effort Cardio regular rate and regular rhythm Extremity Extremity Narrative: Bilateral lower extremity edema. There is chronic stasis changes. There are small areas bilaterally with some crusting. There is increased redness in some areas. No crepitance. Neuro oriented x3 and CN's II-XII intact bilaterally Sensorium / Orientation: alert Psych mental status grossly normal Skin Skin Narrative: As described above MDM MDM MDM Narrative Medical decision making narrative: 71-year-old female with chronic lower extremity edema with now some new areas of erythema and crusting. She is concerned for cellulitis. This likely is an early cellulitis of some areas. No systemic signs or symptoms. She is counseled on wound care. She started on doxycycline for home. She will follow-up with her PCP to ensure resolution. Return precautions discussed. Impression: 1. Cellulitis Lab Data Attestation: I reviewed the patient's lab results. Discharge Plan Triage Chief Complaint: Edema ED Provider: Mihir Ring Dx/Rx/DC Orders Instructions: ED Cellulitis Prescriptions: New doxycycline hyclate 100 mg tablet 100 mg PO BID 7 Days Qty: 14 0RF No Action fenofibrate nanocrystallized 48 mg tablet 48 mg PO DAILY atorvastatin 40 mg tablet 40 mg PO QHS duloxetine 60 mg capsule,delayed release(DR/EC) 60 mg PO DAILY Qty: 90 3RF Caltrate + D3 Plus Minerals 300 mg-800 unit -25 mg-0.5 mg tablet 1 tab PO DAILY carvedilol [Coreg] 25 mg tablet 25 mg PO BID Qty: 180 3RF Rx Instructions: must administer with a meal/food metformin 500 mg tablet 1,000 mg PO BID 90 Days Qty: 360 2RF levothyroxine 100 mcg tablet 100 mcg PO DAILY Qty: 90 0RF oxybutynin chloride 5 mg tablet 5 mg PO BID Qty: 180 3RF furosemide 40 mg tablet 40 mg PO BID Qty: 180 4RF omeprazole 40 mg capsule,delayed release(DR/EC) 40 mg PO DAILY Qty: 90 3RF Rx Instructions: Take 30 minutes before breakfast hydrocortisone 2.5 % cream 1 applic topical BID PRN (Reason: skin irritation) Qty: 28.35 3RF (DME) Nebulizer See Rx Instructions .ROUTE .MEDSUPPLY Qty: 1 0RF Rx Instructions: As directed albuterol sulfate 2.5 mg /3 mL (0.083 %) solution for nebulization 2.5 mg inhalation Q4H PRN (Reason: Sob &/Or Wheezing) Qty: 180 3RF spironolactone 25 mg tablet 25 mg PO DAILY Label Comments: TAKE 1 (ONE) TABLET (25 MG TOTAL) BY MOUTH DAILY . Primary Care Provider: Luis Cortés Referrals: Luis Cortés MD [Primary Care Provider] - Disposition Disposition: Home, Self Care
[2021-12-31] MEDS: Doxycycline 100 MG CAPSULE PO (02:24)
== END 2021-12-31 02:27 | disposition home or self-care (01) ==
LOC: ED 02:26
PROVIDERS: Emergency Provider Student in an Organized Health Care Education/Training Program; PCP Internal Medicine; Visit Provider Student in an Organized Health Care Education/Training Program
DX: L03.119 Cellulitis of unspecified part of limb (principal); J44.9 Chronic obstructive pulmonary disease, unspecified; E11.9 Type 2 diabetes mellitus without complications; I10 Essential (primary) hypertension; I89.0 Lymphedema, not elsewhere classified; E03.9 Hypothyroidism, unspecified; E66.9 Obesity, unspecified; F41.9 Anxiety disorder, unspecified; Z87.891 Personal history of nicotine dependence; Z79.899 Other long term (current) drug therapy
CPT/HCPCS: 99283

== ENCOUNTER → 2022-01-30 | Outpatient (CLI) | payer MEDICARE, MEDICAID, SELFPAY ==
[2022-01-30 15:23] LABS: Absolute Lymphocyte Count 2.01 X10^3/uL (0.83-4.51); Absolute Neutrophil Count 5.6 X10^3/uL (2.0-7.7); Basophil# 0.08 X10^3/uL; Basophil% 0.9 % (0-1); Eosinophil# 0.32 X10^3/uL; Eosinophils% 3.7 % (0-5); Hematocrit 47.2 % (37-47); Hemoglobin 15.2 g/dL (12.0-15.0); Lymphocyte # 2.01 X10^3/ul (0.83-4.51); Lymphocyte % 23.1 % (19-41); Mean Corp Hgb Conc 32.2 g/dL (32-36); Mean Corpuscular Hgb 28.6 pg (27.0-32.0); Mean Corpuscular Volume 88.7 fL (81-99); Mean Platelet Vol. 9.7 fl (6.2-12.0); Monocyte# 0.62 X10^3/uL; Monocyte% 7.1 % (0-10); NRBC Flagged by Analyzer 0 % (0-5); Neutrophil # 5.58 X10^3/uL (2.7-7.7); Neutrophil % 64.3 % (47-70); Platelet Count 265 K/mm3 (150-450); RBC Distribution Width CV 13.9 % (11.6-14.6); RBC Distribution Width SD 44.5 fl (35.1-43.9); Red Blood Count 5.32 M/mm3 (4.2-5.4); White Blood Count 8.7 K/mm3 (4.4-11.0)
[2022-01-30 15:47] LABS: ALB/GLOB Ratio 0.8 RATIO (0.9-2.4); AST(SGOT) 20 U/L (15-37); Alanine Aminotransfer ALT/SGPT 20 U/L (13-56); Albumin, Serum 3.4 g/dL (3.2-5.0); Alkaline Phosphatase 87 U/L (45-117); Anion Gap 6 (5-15); BUN 16 mg/dL (7-18); BUN/Creat Ratio 17.4 RATIO (10-20); Calcium,Total 9.2 mg/dL (8.5-10.1); Chloride 102 mmol/L (98-107); Cholesterol 253 mg/dL (200); Creatinine, Serum 0.92 mg/dL (0.55-1.02); EST Glomerular Filtration Rate 64 mL/min (>60); Est Glom Filt Rate - Afr Amer 77 mL/min (>60); Globulin 4.2 g/dL (2.2-4.2); Glucose 137 mg/dL (74-106); High Density Lipoprotein 38 mg/dL; Protein, Total 7.6 g/dL (6.4-8.2); Sodium Level 138 mmol/L (136-145); Thyroid Stim Hormone (TSH) 3.55 uIU/mL (0.358-3.74); Triglycerides 293 mg/dL; Very Low Density Lipoprotein 59 mg/dL (5-40)
== END | disposition home or self-care (01) ==
LOC: BIMLAB 11:42
PROVIDERS: PCP Internal Medicine; Referring Provider Internal Medicine; Visit Provider Internal Medicine
DX: I10 Essential (primary) hypertension (principal); E11.9 Type 2 diabetes mellitus without complications; E03.9 Hypothyroidism, unspecified
CPT/HCPCS: 36415; 80053; 80061; 84443; 85025

== ENCOUNTER 2022-02-16 10:31 | Outpatient (RCR) | payer MEDICARE, MEDICAID, SELFPAY ==
[2022-02-16 10:47] VITALS: BP 150/73; PULSE 74; TEMP 36.2
--- NOTE | 2022-02-16 11:43 | PCM.WC.HP ---
History of Present Illness Date of Service: 02/16/22 Chief Complaint: Bilateral lower extremity swelling, edema, lymphedema History of Wound: Patient is a 72-year-old female who presents with excoriated area on her right medial leg along with significant edema/lymphedema and large amount of serous drainage from her right medial leg. The excoriated area on the right medial leg is painful. She went to the ED on 12/31/21 for pain and redness on her right lower leg where she was diagnosed with cellulitis and started on Doxycycline. She has a history of diabetes, COPD, HTN, edema in lower extremities, she sleeps in a chair and she is a former smoker. She denies wearing any compression. Today she denies fever, chills, nausea or vomiting. She states her appetite is good. Progress of Wound: Right medial leg has excoriated area where she is very edematous and there is a large amount of moisture from the edema. [facility] Medical History Asthma Bilateral lower extremity edema Chronic respiratory failure with hypoxia COPD (chronic obstructive pulmonary disease) Depression Dermatitis Diabetes mellitus type 2 in obese Difficulty swallowing Dyslipidemia Essential hypertension GERD (gastroesophageal reflux disease) Health care maintenance Hypothyroidism Inactivity Lymphedema Morbid obesity with BMI of 45.0-49.9, adult DOLORES (obstructive sleep apnea) Pneumonia due to COVID-19 virus (01/30/21) Sore throat Type 2 diabetes mellitus Ulcer of right lower extremity Home Medications spironolactone 25 mg tablet 25 mg PO DAILY COPD 01/31/21 [History Last Taken Unknown] fenofibrate nanocrystallized 48 mg tablet 48 mg PO DAILY 05/07/21 [History Last Taken Unknown] calcium carb 300 mg-D3 800 unit-mag ox 25 mg-endoscopy specialty technician 0.5 mg-austin-Zn tablet (Caltrate + D3 Plus Minerals) 1 tab PO DAILY 06/09/21 [History Last Taken Unknown] duloxetine 60 mg capsule,delayed release 60 mg PO DAILY #90 caps 07/22/21 [Rx Last Taken Unknown] Nebulizer #1 ea 10/06/21 [Rx Last Taken Unknown] albuterol sulfate 2.5 mg/3 mL (0.083 %) solution for nebulization 2.5 mg (3 mL) inhalation Q4H PRN Sob &/Or Wheezing #180 mL 10/06/21 [Rx Last Taken Unknown] carvedilol 25 mg tablet (Coreg) 25 mg PO BID #180 tabs 10/29/21 [Rx Last Taken Unknown] furosemide 40 mg tablet 40 mg PO BID HEART FAILURE #180 tabs 10/29/21 [Rx Last Taken Unknown] hydrocortisone 2.5 % topical cream 1 applic topical BID PRN skin irritation #28.35 grams 10/29/21 [Rx Last Taken Unknown] levothyroxine 100 mcg tablet 100 mcg PO DAILY HYPOTHYROIDISM #90 tabs 10/29/21 [Rx Last Taken Unknown] metformin 500 mg tablet 1,000 mg PO BID 3 months #360 tabs 10/29/21 [Rx Last Taken Unknown] omeprazole 40 mg capsule,delayed release 40 mg PO DAILY #90 caps 10/29/21 [Rx Last Taken Unknown] oxybutynin chloride 5 mg tablet 5 mg PO BID #180 tabs 10/29/21 [Rx Last Taken Unknown] atorvastatin 80 mg tablet 40 mg PO QHS #90 tabs 01/30/22 [Rx Last Taken Unknown] stool softener PO 01/30/22 [History Last Taken Unknown] Allergy/AdvReac Type Severity Reaction Status Date / Time aspirin AdvReac Abd Verified 01/30/22 11:03 cramps/diarrhea codeine AdvReac Abd Verified 01/30/22 11:03 cramps/diarrhea Penicillins AdvReac Hives Verified 01/30/22 11:03 Family History Grandfather Cancer Daughter Ovarian cancer Brother Diabetes Kidney disease Social History Smoking Status: Former smoker Tobacco: How many years used: 30 how long ago did patient quit smokin years alcohol intake: never substance use type: does not use what type of physical activity do you participate in: none ROS Constitutional Constitutional: Denies fever(s) Eyes Eyes: Reports none ENT HEENT: Reports none Cardiovascular Cardiovascular: Denies chest pain or dyspnea Respiratory/Chest Respiratory/Chest: Reports as per HPI Gastrointestinal Gastrointestinal: Reports none Musculoskeletal Musculoskeletal: Reports extremity pain and numbness Integumentary Integumentary: Reports skin pain, skin swelling and wounds Neurologic Neurologic: Reports as per HPI Psychiatric Psychiatric: Reports systems reviewed and no addt'l complaints, except as documented Endocrine Endocrinology: Reports systems reviewed and no addt'l complaints, except as documented Vital Signs Vital Signs Vital Signs: 02/16/22 10:47 Temperature 97.1 F L Temperature Source Temporal Pulse Rate 74 Blood Pressure 150/73 H Blood Pressure Mean 98 Blood Pressure Source Monitor Blood Pressure Position Semi-Fowlers Blood Pressure Location Left Arm Physical Exam Const alert, oriented x3 and no apparent distress General Appearance: cooperative HEENT normocephalic Eyes PERRL Lymph Lymphatic: lymphedema moderate Resp normal respiratory effort and normal air movement Effort and Inspection: able to speak in complete sentences Auscultation: clear to auscultation bilaterally Cardio regular rate and regular rhythm Peripheral Pulses: dorsalis pedis pulses present bilateral 2+ GI soft to palpation and non-tender Auscultation: normoactive bowel sounds Extremity normal capillary refill General Extremity: edema bilateral lower extremity Details: severe Peripheral Pulses: Yes dorsalis pedis pulses present Skin Skin Narrative: Right medial leg excoriation from edema and drainage due to the edema. Not currently a wound, nothing to debride. Neuro oriented x3 Psych mental status grossly normal Debridement Note Debridement Note No debridement was completed: No debridement was completed today Post-Debridement Measurements and Additional Note: Post-Debridement Measurements/Treatment - Nurse 1 - General Ulcer Assessment Start: 02/16/22 10:47 Freq: Status: Active Protocol: WC.LOWTANISHAT Activity Type Activity Date Activity User E-sign Co-sign Detail Recorded Client Recorded Date Recorded By Document 02/16/22 10:47 ANA PAULA [id number] 02/16/22 10:54 ANA PAULA 02/16/22 10:47 - Today's Visit Information Type of service Initial Visit Arrival Mode Ambulatory Patient Identification Verified (Name & Yes ) Vital Signs Temperature (97.8 F-99.1 F) 97.1 F L Temperature Source Temporal Pulse Rate (60-100) 74 Pulse Location Monitor Blood Pressure (90/60-120/80) 150/73 H Blood Pressure Mean 98 Source Monitor Position Semi-Fowlers Blood Pressure Location Left Arm History Since Last Visit- (Skip if this is Patient's initial visit) Have you changed medications since your No last visit? Any new allergies or adverse reactions No Had a fall/change in ADL's that may No increase risk of falls Signs or symptoms of abuse and/or No neglect since last visit Have you been in the hospital since your No last visit? Has dressing in place as prescribed Yes Has compression in place as prescribed N/A Has offloadiing in place as prescribed N/A Experienced any changes in pain level or No management Left Footwear Regular Shoe Right Footwear Regular Shoe Pain Scale: 0-10 Numeric Is Patient Pain Free? Yes WC - Nurse 1 - General Ulcer Measurement Start: 02/16/22 10:47 Freq: Status: Active Protocol: Activity Type Activity Date Activity User E-sign Co-sign Detail Recorded Client Recorded Date Recorded By Document 02/16/22 10:47 ANA PAULA [id number] 02/16/22 10:54 ANA PAULA 02/16/22 10:47 Wound Center Nurse 1 #3 Right med cluster -Current Size (cm) - Length 4 -Current Size (cm) - Width 3 -Current Size (cm) - Depth 0.1 -Total Square Cm 12 -Exudate Amt Small -Exudate Type Serosanguineous -Wound Margin Distinct, Outline Attached -Granulation Amt Medium (34-66%) -Granulation Quality [place] -Necrosis Amt None Present (0 %) -Texture (Adrianna-wound Skin Appearance) Assessed, Localized Edema -Moisture (Adrianna-wound Skin Appearance) Assessed, Maceration, Weeping -Color (Adrianna-wound Skin Appearance) No Abnormality, Assessed -Temperature (Adrianna-wound Skin No Abnormality Appearance) (Pt Warm) -Tenderness on Palpation (Adrianna-wound No Skin Appearance) -Ulcer Cleansing Rinsed/ Irrigated with Saline -Foul Odor after Cleansing No -Anesthetic Used 5% Lidocaine Gel Right Calf (cm) 53 Right Ankle (cm) 29 Left Calf (cm) 51.2 Left Ankle (cm) 29 WC - Nurse 2 - General Ulcer CM Notes Start: 02/16/22 10:47 Freq: Status: Active Protocol: Activity Type Activity Date Activity User E-sign Co-sign Detail Recorded Client Recorded Date Recorded By Document 02/16/22 11:04 JAREK [id number] 02/16/22 11:13 JAREK 02/16/22 11:04 Pain Scale: 0-10 Numeric Is Patient Pain Free? Yes JESÚS - Nurse 3 - General Ulcer D/C NN Start: 02/16/22 10:47 Freq: Status: Active Protocol: Activity Type Activity Date Activity User E-sign Co-sign Detail Recorded Client Recorded Date Recorded By Document 02/16/22 11:13 JAREK [id number] 02/16/22 11:14 JAREK 02/16/22 11:13 Wound Care Nurse 3 Right -Compression Wrap Unna Boot ($) ( single) -Other superabsorber Left -Compression Wrap Unna Boot ($) ( single) Pain Scale: 0-10 Numeric Is Patient Pain Free? Yes WC - Visit Discharge Discharge Condition Stable Ambulatory Status Ambulatory Transportation Private Auto Accompanied by spouse Medication Reconcilliation completed & Yes provided to patient/care provider Clinical Summary of Care Provided Yes Charges/Coding Visit Charges Office Visits / Consults: [id number] OV L4 Est Assessment/Plan Assessment/Plan (1) Edema of both lower extremities: CODE(S): R60.0 - Localized edema (2) Lymphedema: CODE(S): I89.0 - Lymphedema, not elsewhere classified (3) Type 2 diabetes mellitus: CODE(S): E11.9 - Type 2 diabetes mellitus without complications QUALIFIERS: Diabetes mellitus complication status: with other specified complication Diabetes mellitus director long term care insulin use: without director long term care use Qualified Code(s): E11.69 - Type 2 diabetes mellitus with other specified complication (4) Essential hypertension: CODE(S): I10 - Essential (primary) hypertension (5) Venous insufficiency: CODE(S): I87.2 - Venous insufficiency (chronic) (peripheral) (6) PVD (peripheral vascular disease): CODE(S): I73.9 - Peripheral vascular disease, unspecified PLAN: Plan Patient was evaluated at the wound healing center today. No debridement was performed due to no open wound. Patient has significant edema/lymphedema. Will apply Unna boots bilaterally. On right medial leg we will place superabsorber to help control the drainage. Will order venous and arterial studies. Encourage patient to eat a high-protein low carbohydrate diet and to to watch the amount of sodium intake. This will help with decreasing her edema, blood pressure, and her diabetes. She will follow-up or Wednesday for nurse visit to have the Unna boot changed to make sure she is tolerating it well. She follow-up 1 week with me.
== END 2022-02-18 23:59 | disposition home or self-care (01) ==
LOC: WC 10:31
PROVIDERS: PCP Internal Medicine; Visit Provider Nurse Practitioner Family
DX: R60.0 Localized edema (principal); E11.51 Type 2 diabetes mellitus with diabetic peripheral angiopathy without gangrene; J44.9 Chronic obstructive pulmonary disease, unspecified; J96.11 Chronic respiratory failure with hypoxia; E66.01 Morbid (severe) obesity due to excess calories; Z68.42 Body mass index [BMI] 45.0-49.9, adult; I89.0 Lymphedema, not elsewhere classified; I87.2 Venous insufficiency (chronic) (peripheral); M79.604 Pain in right leg; I10 Essential (primary) hypertension; E78.5 Hyperlipidemia, unspecified; M79.89 Other specified soft tissue disorders; R13.10 Dysphagia, unspecified; E03.9 Hypothyroidism, unspecified; K21.9 Gastro-esophageal reflux disease without esophagitis; G47.33 Obstructive sleep apnea (adult) (pediatric); F32.A Depression, unspecified; Z79.84 Long term (current) use of oral hypoglycemic drugs; Z79.890 Hormone replacement therapy; Z79.899 Other long term (current) drug therapy; Z87.891 Personal history of nicotine dependence; Z86.16 Personal history of COVID-19
CPT/HCPCS: 29580; 99213; G0463

== ENCOUNTER → 2022-02-17 | Outpatient (CLI) | payer MEDICARE, MEDICAID, SELFPAY ==
--- NOTE | 2022-02-17 14:30 | BI_ITS ---
MAMMOGRAPHY - BILATERAL SCREENING REASON FOR EXAM: Female, 72 years old. Routine annual screening examination. PERTINENT HISTORY: Non-contributory. Remote right excisional breast biopsy. TECHNIQUE: Digital bilateral breast keely (3D mammographic acquisition) in the CC and MLO projections. 2-D mediolateral oblique (MLO) and craniocaudad (CC) views of both breasts were obtained. CAD: Full Field Digital Mammography with Computer Added Detection was performed. COMPARISON: Comparison is made with prior outside examination of 05/02/2020. FINDINGS: Breast Composition: There are scattered areas of fibroglandular density. There are no dominant masses or suspicious calcifications. Stable prominent venous markings in both breasts. Stable fat-containing bilateral axillary lymph nodes. No other significant abnormalities are identified. There has been no significant change since the prior study. BI/SCRN MAMM (CAD)W/KEELY BILAT IMPRESSION: Stable bilateral screening mammogram. Yearly follow-up mammogram recommended. (A) ASSESSMENT CATEGORY: BIRADS Category 2: Benign. A letter regarding these results will be sent to the patient by the facility within 30 days. Approximately 10% of breast cancers are not detected by mammography. A normal mammogram should not delay biopsy of a clinically suspicious abnormality. [id number] Electronically Signed: Catalino Medina MD at 15:49 EDT ,
--- NOTE | 2022-02-17 15:07 | BD_ITS ---
STUDY: DUAL ENERGY X-RAY ABSORPTIOMETRY / DXA REASON FOR EXAM: Female, 72 years old. Post menopausal TECHNIQUE: Bone Mineral Density (BMD) measurements of both forearms were obtained. COMPARISON: None. FINDINGS: Right Forearm: g/cm2 (0.564) / T-score (-0.3) / Z-score (2.0) Left Forearm: g/cm2 (0.584) / T-score (0.1) / Z-score (2.4) BD/Dexa Bone Density/Append Skel IMPRESSION: The patient is considered normal as outlined below according to World Jose Organization (WHO) criteria with a low fracture risk. Reference Information: The T-score is the number of standard deviations above or below the standard which is normal for young adults at their peak bone mineral density. The World Health Organization (WHO) interprets the T-scores as follows: Above -1 Normal bone density Between -1 and -2.5 Osteopenia Equal to / or below -2.5 Osteoporosis As a practical clinical guideline, osteopenia may be graded as follows: Mild -1 through -1.5 Moderate -1.6 through -2.0 Severe -2.1 through -2.4 The Z-score is the number of standard deviations above or below age-matched controls. A Z-score of less than -1.5 would be considered abnormal. References: 1. NIH Osteoporosis and Related Bone Diseases www osteo.org 2. International Society for Clinical Densitometry www iscd.org 3. National Osteoporosis Foundation www nof.org Electronically Signed: Catalino Medina MD at 12:16 EDT ,
== END | disposition home or self-care (01) ==
LOC: OPBD 14:29
PROVIDERS: PCP Internal Medicine; Referring Provider Internal Medicine; Visit Provider Internal Medicine
DX: Z12.31 Encounter for screening mammogram for malignant neoplasm of breast (principal); Z78.0 Asymptomatic menopausal state
CPT/HCPCS: 77063; 77067; 77081

== ENCOUNTER 2022-03-20 10:45 | Outpatient (RCR) | payer MEDICARE, MEDICAID, SELFPAY ==
[2022-02-19 00:48] VITALS: BP 150/73; PULSE 74; TEMP 36.2
[2022-02-20 13:16] VITALS: BP 150/93; PULSE 91; TEMP 36.6
[2022-02-24 14:15] VITALS: BP 142/91; PULSE 94; RESP 20; TEMP 36.1
--- NOTE | 2022-02-24 14:40 | PCM.WC.PN ---
History of Present Illness Date of Service: 02/24/22 Chief Complaint: Bilateral lower extremity swelling, edema, lymphedema History of Wound: Patient is a 72-year-old female who presents with excoriated area on her right medial leg along with significant edema/lymphedema and large amount of serous drainage from her right medial leg. The excoriated area on the right medial leg is painful. She went to the ED on 12/31/21 for pain and redness on her right lower leg where she was diagnosed with cellulitis and started on Doxycycline. She has a history of diabetes, COPD, HTN, edema in lower extremities, she sleeps in a chair and she is a former smoker. She denies wearing any compression. Today she denies fever, chills, nausea or vomiting. She states her appetite is good. Progress of Wound: This a courtesy visit for Dr. Interiano. Bilateral leg edema is improved. The excoriation on the right medial leg has resolved. There are no open wounds or drainage. Objective Data Objective Data Vital Signs: Vital Signs Temp Pulse Resp BP 96.9 F L 94 20 H 142/91 H 02/24/22 14:15 02/24/22 14:15 02/24/22 14:15 02/24/22 14:15 Charges/Coding Visit Charges Office Visits / Consults: [id number] OV L3 Est Physical Exam Const alert, oriented x3 and no apparent distress General Appearance: cooperative HEENT normocephalic Eyes PERRL Lymph Lymphatic: lymphedema moderate Resp normal respiratory effort Effort and Inspection: able to speak in complete sentences Cardio regular rate Peripheral Pulses: dorsalis pedis pulses present bilateral 2+ Extremity normal capillary refill Extremity Narrative: Bilateral lower extremity edema and excoriation of skin is much improved. She now has +2 non pitting edema bilaterally. Her excoriated areas have cleared up with the Unna boot compression. General Extremity: edema bilateral lower extremity Details: severe Peripheral Pulses: Yes dorsalis pedis pulses present Skin Wound Narrative: No ulcers/wounds Neuro oriented x3 Psych mental status grossly normal Debridement Note Debridement Note No debridement was completed: No debridement was completed today Post-Debridement Measurements and Additional Note: Post-Debridement Measurements/Treatment [id number] - Nurse 1 - General Ulcer Assessment Start: 02/20/22 13:15 Freq: Status: Active Protocol: KELSEY Activity Type Activity Date Activity User E-sign Co-sign Detail Recorded Client Recorded Date Recorded By Document 02/20/22 13:16 RB [id number] 02/20/22 13:18 RB Document 02/24/22 14:15 [id number] 02/24/22 14:21 02/20/22 02/24/22 13:16 14:15 - Today's Visit Information Type of service Nurse-only Follow-up Visit Visit (Physician/DIESEL TR[employer] MECHANIC ) Arrival Mode Ambulatory Ambulatory Transfer Assistance None Patient Identification Verified (Name & Yes Yes ) Patient Requires Transmission-Based No No Precautions Safety Precautions NA Vital Signs Temperature (97.8 F-99.1 F) 97.9 F 96.9 F L Temperature Source Temporal Temporal Pulse Rate (60-100) 91 94 Pulse Location Monitor Monitor Respiratory Rate (12-18) 20 H Respiratory rate source Observation Blood Pressure (90/60-120/80) 150/93 H 142/91 H Blood Pressure Mean (mm Hg) 112 108 Source Monitor Monitor History Since Last Visit- (Skip if this is Patient's initial visit) Have you changed medications since your No No last visit? Any new allergies or adverse reactions No No Had a fall/change in ADL's that may No No increase risk of falls Signs or symptoms of abuse and/or No No neglect since last visit Have you been in the hospital since your No No last visit? Has dressing in place as prescribed Yes Yes Has compression in place as prescribed Yes Yes Has offloadiing in place as prescribed N/A N/A Experienced any changes in pain level or No No management Left Footwear Regular Shoe Right Footwear Regular Shoe Pain Scale: 0-10 Numeric Is Patient Pain Free? Yes Yes - Nurse 1 - General Ulcer Measurement Start: 02/20/22 13:15 Freq: Status: Active Protocol: Activity Type Activity Date Activity User E-sign Co-sign Detail Recorded Client Recorded Date Recorded By Document 02/24/22 14:15 [id number] 02/24/22 14:21 02/24/22 14:15 Wound Center Nurse 1 Right Calf (cm) 47.5 Right Ankle (cm) 28.5 Left Calf (cm) 48 Left Ankle (cm) 28.4 - Nurse 2 - General Ulcer CM Notes Start: 02/20/22 13:15 Freq: Status: Active Protocol: Activity Type Activity Date Activity User E-sign Co-sign Detail Recorded Client Recorded Date Recorded By Document 02/24/22 14:33 MW [id number] 02/24/22 14:37 MW 02/24/22 14:33 Pain Scale: 0-10 Numeric Is Patient Pain Free? Yes WC - Nurse 3 - General Ulcer D/C NN Start: 02/20/22 13:15 Freq: Status: Active Protocol: Activity Type Activity Date Activity User E-sign Co-sign Detail Recorded Client Recorded Date Recorded By Document 02/20/22 13:16 RB [id number] 02/20/22 13:18 RB 02/20/22 13:16 Vital Signs Temperature (97.8 F-99.1 F) 97.9 F Temperature Source Temporal Pulse Rate (60-100) 91 Pulse Location Monitor Blood Pressure (90/60-120/80) 150/93 H Blood Pressure Mean (mm Hg) 112 Source Monitor Pain Scale: 0-10 Numeric Is Patient Pain Free? Yes Wound Care Nurse 3 Left -Multi-Layered Wrap Application Unna Boot - Bilateral ($) -Unna Boots (Bilat) ($) 2 -Other Zahira applied WC - Visit Discharge Discharge Condition Stable Ambulatory Status Ambulatory Transportation Private Auto Accompanied by Medication Reconcilliation completed & Yes provided to patient/care provider Clinical Summary of Care Provided Yes Assessment/Plan Assessment/Plan (1) Edema of both lower extremities: CODE(S): R60.0 - Localized edema (2) Lymphedema: CODE(S): I89.0 - Lymphedema, not elsewhere classified (3) Type 2 diabetes mellitus: CODE(S): E11.9 - Type 2 diabetes mellitus without complications QUALIFIERS: Diabetes mellitus senior care insulin use: without senior care use Diabetes mellitus complication status: with other specified complication Qualified Code(s): E11.69 - Type 2 diabetes mellitus with other specified complication (4) Essential hypertension: CODE(S): I10 - Essential (primary) hypertension (5) Venous insufficiency: CODE(S): I87.2 - Venous insufficiency (chronic) (peripheral) (6) PVD (peripheral vascular disease): CODE(S): I73.9 - Peripheral vascular disease, unspecified PLAN: Plan Patient was evaluated at the wound healing center today. No debridement was performed due to no open wound. Patient's edema/lymphedema has improved and there is no longer any excoriation on the right. Will apply Unna boots bilaterally. Will order venous and arterial studies. Encourage patient to eat a high-protein low carbohydrate diet and to to watch the amount of sodium intake. This will help with decreasing her edema, blood pressure, and her diabetes. She will follow-up Wednesday for nurse visit to have the Unna boot changed to make sure she is tolerating it well. She follow-up [address] Interiano.
[2022-02-27 13:30] VITALS: BP 150/84; PULSE 108; RESP 20; TEMP 36.8
--- NOTE | 2022-03-05 12:35 | PCM.WC.PN ---
History of Present Illness Date of Service: 03/05/22 Chief Complaint: Bilateral lower extremity swelling, edema, lymphedema History of Wound: Patient is a 72-year-old female who presents with excoriated area on her right medial leg along with significant edema/lymphedema and large amount of serous drainage from her right medial leg. The excoriated area on the right medial leg is painful. She went to the ED on 12/31/21 for pain and redness on her right lower leg where she was diagnosed with cellulitis and started on Doxycycline. She has a history of diabetes, COPD, HTN, edema in lower extremities, she sleeps in a chair and she is a former smoker. She denies wearing any compression. Today she denies fever, chills, nausea or vomiting. She states her appetite is good. Progress of Wound: This a courtesy visit for Dr. Interiano. Bilateral leg edema is improved. The excoriation on the right medial leg has resolved. There are no open wounds or drainage. Subjective Subjective This is a 72-year-old female who is following up at the wound care center today for bilateral lower extremity edema. She denies any constitutional symptoms today. She denies any further complaints today. Objective Data Objective Data Vital Signs: Vital Signs Temp Pulse Resp BP O2 Del Method 98.3 F 108 H 20 H 150/84 H Room Air 02/27/22 13:30 02/27/22 13:30 02/27/22 13:30 02/27/22 13:30 02/27/22 13:30 Oxygen Delivery Method Room Air Physical Exam Const alert, oriented x3, no apparent distress and well nourished General Appearance: cooperative HEENT normocephalic Eyes General Eye: normal appearance of both eyes Neck General: normal visual inspection Lymph Lymphatic: no lymphadenopathy noted and no lymphedema noted Resp normal respiratory effort Cardio regular rate and regular rhythm Extremity normal capillary refill, no joint enlargement, no calf tenderness and no pedal edema Peripheral Pulses: Yes posterior tibial pulses present bilateral and dorsalis pedis pulses present bilateral Skin no rashes or lesions noted, skin turgor normal and no jaundice Skin Narrative: Bilateral lower extremity demonstrates +1 pitting edema with rubor with hemosiderin deposition consistent with chronic venous stasis. No open wounds are noted. General Skin Exam: venous stasis and dermatitis Neuro oriented x3 and moves all extremities Debridement Note Debridement Note Post-Debridement Measurements and Additional Note: Post-Debridement Measurements/Treatment WC - Nurse 1 - General Ulcer Assessment Start: 02/20/22 13:15 Freq: Status: Active Protocol: KELSEY Activity Type Activity Date Activity User E-sign Co-sign Detail Recorded Client Recorded Date Recorded By Document 02/20/22 13:16 RB [id number] 02/20/22 13:18 RB Document 02/24/22 14:15 MW [id number] 02/24/22 14:21 MW Document 02/27/22 13:30 MW [id number] 02/27/22 13:32 MW 02/20/22 02/24/22 02/27/22 13:16 14:15 13:30 WC - Today's Visit Information Type of service Nurse-only Follow-up Visit Nurse-only Visit (Physician/MUSIC REHABILITATION THERAPIST Visit ) Arrival Mode Ambulatory Ambulatory Ambulatory Transfer Assistance None None Accompanied by Patient Identification Verified (Name & Yes Yes Yes ) Patient Requires Transmission-Based No No No Precautions Safety Precautions NA Vital Signs Temperature (97.8 F-99.1 F) 97.9 F 96.9 F L 98.3 F Temperature Source Temporal Temporal Temporal Pulse Rate (60-100) 91 94 108 H Pulse Location Monitor Monitor Monitor Respiratory Rate (12-18) 20 H 20 H Respiratory rate source Observation Observation Oxygen Delivery Method Room Air Blood Pressure (90/60-120/80) 150/93 H 142/91 H 150/84 H Blood Pressure Mean (mm Hg) 112 108 106 Source Monitor Monitor Monitor Position Sitting Blood Pressure Location Left Forearm History Since Last Visit- (Skip if this is Patient's initial visit) Have you changed medications since your No No No last visit? Any new allergies or adverse reactions No No No Had a fall/change in ADL's that may No No No increase risk of falls Signs or symptoms of abuse and/or No No No neglect since last visit Have you been in the hospital since your No No No last visit? Has dressing in place as prescribed Yes Yes Yes Has compression in place as prescribed Yes Yes Yes Has offloadiing in place as prescribed N/A N/A N/A Experienced any changes in pain level or No No No management Left Footwear Regular Shoe Regular Shoe Right Footwear Regular Shoe Regular Shoe Pain Scale: 0-10 Numeric Is Patient Pain Free? Yes Yes Yes Teaching: Wound Center Compression Wraps & Stockings -Person Taught Patient,Family -Teaching Method Discussion, Demonstration -Response to teaching Verbalize understanding - Nurse 1 - General Ulcer Measurement Start: 02/20/22 13:15 Freq: Status: Active Protocol: Activity Type Activity Date Activity User E-sign Co-sign Detail Recorded Client Recorded Date Recorded By Document 02/24/22 14:15 MW [id number] 02/24/22 14:21 MW Document 02/27/22 13:30 MW [id number] 02/27/22 13:32 MW 02/24/22 02/27/22 14:15 13:30 Wound Center Nurse 1 Lower Limb Edema Present Yes Right Calf (cm) 47.5 46.0 Right Ankle (cm) 28.5 28.5 Left Calf (cm) 48 39.5 Left Ankle (cm) 28.4 27.0 - Nurse 2 - General Ulcer CM Notes Start: 02/20/22 13:15 Freq: Status: Active Protocol: Activity Type Activity Date Activity User E-sign Co-sign Detail Recorded Client Recorded Date Recorded By Document 02/24/22 14:33 MW [id number] 02/24/22 14:37 MW 02/24/22 14:33 Pain Scale: 0-10 Numeric Is Patient Pain Free? Yes - Nurse 3 - General Ulcer D/C NN Start: 02/20/22 13:15 Freq: Status: Active Protocol: Activity Type Activity Date Activity User E-sign Co-sign Detail Recorded Client Recorded Date Recorded By Document 02/20/22 13:16 RB [id number] 02/20/22 13:18 RB Document 02/24/22 14:52 MW [id number] 02/24/22 14:53 MW Document 02/27/22 13:30 MW [id number] 02/27/22 13:32 MW Document 03/05/22 12:19 DL [id number] 03/05/22 12:20 DL 02/20/22 02/24/22 02/27/22 13:16 14:52 13:30 Vital Signs Temperature (97.8 F-99.1 F) 97.9 F 98.3 F Temperature Source Temporal Temporal Pulse Rate (60-100) 91 108 H Pulse Location Monitor Monitor Respiratory Rate (12-18) 20 H Respiratory rate source Observation Oxygen Delivery Method Room Air Blood Pressure (90/60-120/80) 150/93 H 150/84 H Blood Pressure Mean (mm Hg) 112 106 Source Monitor Monitor Position Sitting Blood Pressure Location Left Forearm Pain Scale: 0-10 Numeric Is Patient Pain Free? Yes Yes Yes Teaching: Wound Center Control Swelling with Leg Elevation -Person Taught Patient,Family -Teaching Method Discussion -Response to teaching Verbalize understanding Compression Wraps & Stockings -Person Taught Patient,Family Patient,Family -Teaching Method Discussion, Discussion, Demonstration Demonstration -Response to teaching Verbalize Verbalize understanding understanding Wound Care Nurse 3 BILATERAL LE -Lotion applied to leg before No No compression wrap -Multi-Layered Wrap Application Unna Boot - Unna Boot - Bilateral ($) Bilateral ($) -Unna Boots (Bilat) ($) 2 2 Left -Multi-Layered Wrap Application Unna Boot - Bilateral ($) -Unna Boots (Bilat) ($) 2 -Other Zah[place] applied Treatment Response Procedure Tolerated Well WC - Visit Discharge Discharge Condition Stable Stable Stable Ambulatory Status Ambulatory Ambulatory Ambulatory Transportation Private Auto Private Auto Private Auto Accompanied by FAMILY Medication Reconcilliation completed & Yes No No provided to patient/care provider Clinical Summary of Care Provided Yes Yes Yes 03/05/22 12:19 Vital Signs Temperature (97.8 F-99.1 F) Temperature Source Pulse Rate (60-100) Pulse Location Respiratory Rate (12-18) Respiratory rate source Oxygen Delivery Method Blood Pressure (90/60-120/80) Blood Pressure Mean (mm Hg) Source Position Blood Pressure Location Pain Scale: 0-10 Numeric Is Patient Pain Free? Yes Teaching: Wound Center Control Swelling with Leg Elevation -Person Taught -Teaching Method -Response to teaching Compression Wraps & Stockings -Person Taught -Teaching Method -Response to teaching Wound Care Nurse 3 BILATERAL LE -Lotion applied to leg before compression wrap -Multi-Layered Wrap Application Unna Boot - Bilateral ($) -Unna Boots (Bilat) ($) 2 Left -Multi-Layered Wrap Application -Unna Boots (Bilat) ($) -Other Treatment Response Procedure Tolerated Well WC - Visit Discharge Discharge Condition Stable Ambulatory Status Ambulatory Transportation Accompanied by Medication Reconcilliation completed & provided to patient/care provider Clinical Summary of Care Provided Assessment/Plan Assessment/Plan (1) PVD (peripheral vascular disease): CODE(S): I73.9 - Peripheral vascular disease, unspecified (2) Venous insufficiency: CODE(S): I87.2 - Venous insufficiency (chronic) (peripheral) (3) Edema of both lower extremities: CODE(S): R60.0 - Localized edema (4) Essential hypertension: CODE(S): I10 - Essential (primary) hypertension (5) Type 2 diabetes mellitus: CODE(S): E11.9 - Type 2 diabetes mellitus without complications QUALIFIERS: Diabetes mellitus halfway insulin use: without halfway use Diabetes mellitus complication status: with other specified complication Qualified Code(s): E11.69 - Type 2 diabetes mellitus with other specified complication (6) Lymphedema: CODE(S): I89.0 - Lymphedema, not elsewhere classified PLAN: Plan Patient seen and evaluated No debridement was performed due today secondary to no open wounds. There is improvement in her edema/lymphedema to bilateral lower extremities. I discussed with her today the the reddish/purplish discoloration of the lower extremity bilaterally in relation to her chronic venous stasis. I discussed that as we continue to get her edema under control that she will be able to return to her compression stockings full-time. Unna boot applied to the right and left lower extremity today. Patient was encouraged to continue a high-protein, low carbohydrate diet. She is also to watch the amounts of processed foods and sodium intake to continue to aid in decreasing her edema, maintaining adequate blood pressure and maintaining proper glycemic control to improve her diabetes. She will return to the wound care center in 1 week with Tania Cortez NP for continued application of bilateral Unna boots to maintain her lower extremity edema secondary to chronic venous insufficiency and lymphedema. She is to call the wound care center sooner if she has any questions or concerns. Note: [employer] speech recognition downstream biomanufacturing technician software was used to create portions of this document. Sound-alike and misspelled words, as well as other downstream biomanufacturing technician errors may be contained in the documentation. The problems addressed require a low medical decision making level which includes two or more minor problems, a stable chronic illness, or an acute uncomplicated illness or injury. The medical decision making level is low. There is noted low risk of morbidity after considering this treatment plan and diagnostic data.
[2022-03-10 15:14] VITALS: BP 148/109; PULSE 103; TEMP 35.8
--- NOTE | 2022-03-10 15:43 | PN.PCM_ITS ---
History of Present Illness Date of Service: 03/10/22 Chief Complaint: Bilateral lower extremity swelling, edema, lymphedema History of Wound: Patient is a 72-year-old female who presents with excoriated area on her right medial leg along with significant edema/lymphedema and large amount of serous drainage from her right medial leg. The excoriated area on the right medial leg is painful. She went to the ED on 12/31/21 for pain and redness on her right lower leg where she was diagnosed with cellulitis and started on Doxycycline. She has a history of diabetes, COPD, HTN, edema in lower extremities, she sleeps in a chair and she is a former smoker. She denies wearing any compression. Today she denies fever, chills, nausea or vomiting. She states her appetite is good. Progress of Wound: The excoriation and drainage has resolved with the unna boots. Edema has improved on bilateral leg edema. Objective Data Objective Data Vital Signs: Vital Signs Temp Pulse Resp BP O2 Del Method 96.5 F L 103 H 20 H 148/109 H Room Air 03/10/22 15:14 03/10/22 15:14 02/27/22 13:30 03/10/22 15:14 02/27/22 13:30 Oxygen Delivery Method Room Air Charges/Coding Visit Charges Office Visits / Consults: [id number] OV L3 Est Physical Exam Const alert, oriented x3, no apparent distress and well nourished General Appearance: cooperative HEENT normocephalic Eyes General Eye: normal appearance of both eyes Neck General: normal visual inspection Lymph Lymphatic: no lymphadenopathy noted and no lymphedema noted Resp normal respiratory effort Cardio regular rate Extremity normal capillary refill, no joint enlargement, no calf tenderness and no pedal edema Peripheral Pulses: Yes posterior tibial pulses present bilateral and dorsalis pedis pulses present bilateral Skin no rashes or lesions noted, skin turgor normal and no jaundice Skin Narrative: Bilateral lower extremity demonstrates +1 edema with rubor with hemosiderin deposition consistent with chronic venous stasis. No open wounds or drainage are noted. General Skin Exam: venous stasis and dermatitis Neuro oriented x3 and moves all extremities Psych affect normal Debridement Note Debridement Note No debridement was completed: No debridement was completed today Post-Debridement Measurements and Additional Note: Post-Debridement Measurements/Treatment WC - Nurse 1 - General Ulcer Assessment Start: 02/20/22 13:15 Freq: Status: Active Protocol: WC.LOWEXT Activity Type Activity Date Activity User E-sign Co-sign Detail Recorded Client Recorded Date Recorded By Document 02/20/22 13:16 RB [id number] 02/20/22 13:18 RB Document 02/24/22 14:15 MW [id number] 02/24/22 14:21 MW Document 02/27/22 13:30 MW [id number] 02/27/22 13:32 MW Document 03/10/22 15:14 AK [id number] 03/10/22 15:16 AK 02/20/22 02/24/22 02/27/22 13:16 14:15 13:30 WC - Today's Visit Information Type of service Nurse-only Follow-up Visit Nurse-only Visit (Physician/HOME STAGING SPECIALIST Visit ) Arrival Mode Ambulatory Ambulatory Ambulatory Transfer Assistance None None Accompanied by Patient Identification Verified (Name & Yes Yes Yes ) Patient Requires Transmission-Based No No No Precautions Safety Precautions NA Vital Signs Temperature (97.8 F-99.1 F) 97.9 F 96.9 F L 98.3 F Temperature Source Temporal Temporal Temporal Pulse Rate (60-100) 91 94 108 H Pulse Location Monitor Monitor Monitor Respiratory Rate (12-18) 20 H 20 H Respiratory rate source Observation Observation Oxygen Delivery Method Room Air Blood Pressure (90/60-120/80) 150/93 H 142/91 H 150/84 H Blood Pressure Mean (mm Hg) 112 108 106 Source Monitor Monitor Monitor Position Sitting Blood Pressure Location Left Forearm History Since Last Visit- (Skip if this is Patient's initial visit) Have you changed medications since your No No No last visit? Any new allergies or adverse reactions No No No Had a fall/change in ADL's that may No No No increase risk of falls Signs or symptoms of abuse and/or No No No neglect since last visit Have you been in the hospital since your No No No last visit? Has dressing in place as prescribed Yes Yes Yes Has compression in place as prescribed Yes Yes Yes Has offloadiing in place as prescribed N/A N/A N/A Experienced any changes in pain level or No No No management Left Footwear Regular Shoe Regular Shoe Right Footwear Regular Shoe Regular Shoe Pain Scale: 0-10 Numeric Is Patient Pain Free? Yes Yes Yes Teaching: Wound Center Compression Wraps & Stockings -Person Taught Patient,Family -Teaching Method Discussion, Demonstration -Response to teaching Verbalize understanding 03/10/22 15:14 WC - Today's Visit Information Type of service Follow-up Visit (Physician/HOME STAGING SPECIALIST ) Arrival Mode Ambulatory Transfer Assistance Accompanied by Patient Identification Verified (Name & Yes ) Patient Requires Transmission-Based No Precautions Safety Precautions NA Vital Signs Temperature (97.8 F-99.1 F) 96.5 F L Temperature Source Temporal Pulse Rate (60-100) 103 H Pulse Location Monitor Respiratory Rate (12-18) Respiratory rate source Oxygen Delivery Method Blood Pressure (90/60-120/80) 148/109 H Blood Pressure Mean (mm Hg) 122 Source Monitor Position Blood Pressure Location History Since Last Visit- (Skip if this is Patient's initial visit) Have you changed medications since your No last visit? Any new allergies or adverse reactions No Had a fall/change in ADL's that may No increase risk of falls Signs or symptoms of abuse and/or No neglect since last visit Have you been in the hospital since your No last visit? Has dressing in place as prescribed Yes Has compression in place as prescribed Yes Has offloadiing in place as prescribed N/A Experienced any changes in pain level or No management Left Footwear Regular Shoe Right Footwear Regular Shoe Pain Scale: 0-10 Numeric Is Patient Pain Free? Yes Teaching: Wound Center Compression Wraps & Stockings -Person Taught -Teaching Method -Response to teaching - Nurse 1 - General Ulcer Measurement Start: 02/20/22 13:15 Freq: Status: Active Protocol: Activity Type Activity Date Activity User E-sign Co-sign Detail Recorded Client Recorded Date Recorded By Document 02/24/22 14:15 [id number] 02/24/22 14:21 MW Document 02/27/22 13:30 MW [id number] 02/27/22 13:32 MW Document 03/10/22 15:14 AK [id number] 03/10/22 15:16 AK 02/24/22 02/27/22 03/10/22 14:15 13:30 15:14 Wound Center Nurse 1 Lower Limb Edema Present Yes Right Calf (cm) 47.5 46.0 42 Right Ankle (cm) 28.5 28.5 27 Left Calf (cm) 48 39.5 44.2 Left Ankle (cm) 28.4 27.0 27 WC - Nurse 2 - General Ulcer CM Notes Start: 02/20/22 13:15 Freq: Status: Active Protocol: Activity Type Activity Date Activity User E-sign Co-sign Detail Recorded Client Recorded Date Recorded By Document 02/24/22 14:33 MW [id number] 02/24/22 14:37 MW Document 03/10/22 15:24 JF [id number] 03/10/22 15:25 JF 02/24/22 03/10/22 14:33 15:24 Pain Scale: 0-10 Numeric Is Patient Pain Free? Yes Yes WC - Nurse 3 - General Ulcer D/C NN Start: 02/20/22 13:15 Freq: Status: Active Protocol: Activity Type Activity Date Activity User E-sign Co-sign Detail Recorded Client Recorded Date Recorded By Document 02/20/22 13:16 RB [id number] 02/20/22 13:18 RB Document 02/24/22 14:52 MW [id number] 02/24/22 14:53 MW Document 02/27/22 13:30 MW [id number] 02/27/22 13:32 MW Document 03/05/22 12:19 DL [id number] 03/05/22 12:20 DL Document 03/10/22 15:30 BMF [id number] 03/10/22 15:31 BMF 02/20/22 02/24/22 02/27/22 13:16 14:52 13:30 Vital Signs Temperature (97.8 F-99.1 F) 97.9 F 98.3 F Temperature Source Temporal Temporal Pulse Rate (60-100) 91 108 H Pulse Location Monitor Monitor Respiratory Rate (12-18) 20 H Respiratory rate source Observation Oxygen Delivery Method Room Air Blood Pressure (90/60-120/80) 150/93 H 150/84 H Blood Pressure Mean (mm Hg) 112 106 Source Monitor Monitor Position Sitting Blood Pressure Location Left Forearm Pain Scale: 0-10 Numeric Is Patient Pain Free? Yes Yes Yes Teaching: Wound Center Control Swelling with Leg Elevation -Person Taught Patient,Family -Teaching Method Discussion -Response to teaching Verbalize understanding Compression Wraps & Stockings -Person Taught Patient,Family Patient,Family -Teaching Method Discussion, Discussion, Demonstration Demonstration -Response to teaching Verbalize Verbalize understanding understanding Wound Care Nurse 3 BILATERAL LE -Lotion applied to leg before No No compression wrap -Multi-Layered Wrap Application Unna Boot - Unna Boot - Bilateral ($) Bilateral ($) -Unna Boots (Bilat) ($) 2 2 Left -Multi-Layered Wrap Application Unna Boot - Bilateral ($) -Unna Boots (Bilat) ($) 2 -Other [place] applied Treatment Response Procedure Tolerated Well WC - Visit Discharge Discharge Condition Stable Stable Stable Ambulatory Status Ambulatory Ambulatory Ambulatory Transportation Private Auto Private Auto Private Auto Accompanied by FAMILY Medication Reconcilliation completed & Yes No No provided to patient/care provider Clinical Summary of Care Provided Yes Yes Yes 03/05/22 03/10/22 12:19 15:30 Vital Signs Temperature (97.8 F-99.1 F) Temperature Source Pulse Rate (60-100) Pulse Location Respiratory Rate (12-18) Respiratory rate source Oxygen Delivery Method Blood Pressure (90/60-120/80) Blood Pressure Mean (mm Hg) Source Position Blood Pressure Location Pain Scale: 0-10 Numeric Is Patient Pain Free? Yes Yes Teaching: Wound Center Control Swelling with Leg Elevation -Person Taught -Teaching Method -Response to teaching Compression Wraps & Stockings -Person Taught -Teaching Method -Response to teaching Wound Care Nurse 3 BILATERAL LE -Lotion applied to leg before compression wrap -Multi-Layered Wrap Application Unna Boot - Unna Boot - Bilateral ($) Bilateral ($) -Unna Boots (Bilat) ($) 2 2 Left -Multi-Layered Wrap Application -Unna Boots (Bilat) ($) -Other Treatment Response Procedure Procedure Tolerated Well Tolerated Well WC - Visit Discharge Discharge Condition Stable Stable Ambulatory Status Ambulatory Ambulatory Transportation Private Auto Accompanied by Medication Reconcilliation completed & provided to patient/care provider Clinical Summary of Care Provided Assessment/Plan Assessment/Plan (1) PVD (peripheral vascular disease): CODE(S): I73.9 - Peripheral vascular disease, unspecified (2) Venous insufficiency: CODE(S): I87.2 - Venous insufficiency (chronic) (peripheral) (3) Edema of both lower extremities: CODE(S): R60.0 - Localized edema (4) Essential hypertension: CODE(S): I10 - Essential (primary) hypertension (5) Type 2 diabetes mellitus: CODE(S): E11.9 - Type 2 diabetes mellitus without complications QUALIFIERS: Diabetes mellitus intermediate school 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 No debridement was performed due to no open wound. Patient's edema/lymphedema has improved and there is no longer any excoriation on the right. There is no weeping bilaterally. Will apply Unna boots bilaterally.? We measured for her for compression stockings so she can go to [employer] to purchase them. Will order venous and arterial studies. Encourage patient to eat a high-protein low carbohydrate diet and to to watch the amount of sodium intake.? This will help with decreasing her edema, blood pressure, and her diabetes. She will follow-up Wednesday for nurse visit to have the Unna boot changed, or if she has her compression stockings, so they can instruct her how to wear them. If she does not have her compression stockings onWednesday then we will re-apply the Unna boots and she will follow up next week with me so we can evaluate her edema and instruct her about her compression.
[2022-03-13 11:18] VITALS: BP 132/78; PULSE 73; TEMP 36.6
[2022-03-17 14:28] VITALS: BP 153/76; PULSE 91; RESP 22; TEMP 36.4
--- NOTE | 2022-03-17 15:59 | PN.PCM_ITS ---
History of Present Illness Date of Service: 03/17/22 Chief Complaint: Bilateral lower extremity swelling, edema, lymphedema History of Wound: Patient is a 72-year-old female who presents with excoriated area on her right medial leg along with significant edema/lymphedema and large amount of serous drainage from her right medial leg. The excoriated area on the right medial leg is painful. She went to the ED on 12/31/21 for pain and redness on her right lower leg where she was diagnosed with cellulitis and started on Doxycycline. She has a history of diabetes, COPD, HTN, edema in lower extremities, she sleeps in a chair and she is a former smoker. She denies wearing any compression. Today she denies fever, chills, nausea or vomiting. She states her appetite is good. Progress of Wound: The excoriation and drainage has resolved with the unna boots. Edema has improved on bilateral leg edema. Objective Data Objective Data Vital Signs: Vital Signs Temp Pulse Resp BP O2 Del Method 97.5 F L 91 22 H 153/76 H Room Air 03/17/22 14:28 03/17/22 14:28 03/17/22 14:28 03/17/22 14:28 02/27/22 13:30 Oxygen Delivery Method Room Air Charges/Coding Visit Charges Office Visits / Consults: 02240 OV L3 Est Physical Exam Const alert, oriented x3 and no apparent distress General Appearance: cooperative HEENT normocephalic Lymph Lymphatic Narrative: Bilateral lower leg edema/lymphedema. Resp normal respiratory effort Cardio regular rate Extremity normal capillary refill and no calf tenderness Peripheral Pulses: Yes posterior tibial pulses present bilateral and dorsalis pedis pulses present bilateral Skin no rashes or lesions noted, skin turgor normal and no jaundice Skin Narrative: Bilateral lower extremity demonstrates +1 edema with rubor with hemosiderin deposition consistent with chronic venous stasis. No open wounds or drainage are noted. General Skin Exam: venous stasis and dermatitis Neuro oriented x3 and moves all extremities Psych affect normal Debridement Note Debridement Note No debridement was completed: No debridement was completed today Post-Debridement Measurements and Additional Note: Post-Debridement Measurements/Treatment JESÚS - Nurse 1 - General Ulcer Assessment Start: 02/20/22 13:15 Freq: Status: Active Protocol: KELSEY Activity Type Activity Date Activity User E-sign Co-sign Detail Recorded Client Recorded Date Recorded By Document 02/20/22 13:16 RB [id number] 02/20/22 13:18 RB Document 02/24/22 14:15 MW [id number] 02/24/22 14:21 MW Document 02/27/22 13:30 MW [id number] 02/27/22 13:32 MW Document 03/10/22 15:14 AK [id number] 03/10/22 15:16 AK Document 03/13/22 11:18 KR [id number] 03/13/22 11:19 KR Document 03/17/22 14:28 DL [id number] 03/17/22 14:37 DL 02/20/22 02/24/22 02/27/22 13:16 14:15 13:30 WC - Today's Visit Information Type of service Nurse-only Follow-up Visit Nurse-only Visit (Physician/VETERINARY MICROBIOLOGIST Visit ) Arrival Mode Ambulatory Ambulatory Ambulatory Transfer Assistance None None Accompanied by Patient Identification Verified (Name & Yes Yes Yes ) Patient Requires Transmission-Based No No No Precautions Safety Precautions NA Vital Signs Temperature (97.8 F-99.1 F) 97.9 F 96.9 F L 98.3 F Temperature Source Temporal Temporal Temporal Pulse Rate (60-100) 91 94 108 H Pulse Location Monitor Monitor Monitor Respiratory Rate (12-18) 20 H 20 H Respiratory rate source Observation Observation Oxygen Delivery Method Room Air Blood Pressure (90/60-120/80) 150/93 H 142/91 H 150/84 H Blood Pressure Mean (mm Hg) 112 108 106 Source Monitor Monitor Monitor Position Sitting Blood Pressure Location Left Forearm History Since Last Visit- (Skip if this is Patient's initial visit) Have you changed medications since your No No No last visit? Any new allergies or adverse reactions No No No Had a fall/change in ADL's that may No No No increase risk of falls Signs or symptoms of abuse and/or No No No neglect since last visit Have you been in the hospital since your No No No last visit? Has dressing in place as prescribed Yes Yes Yes Has compression in place as prescribed Yes Yes Yes Has offloadiing in place as prescribed N/A N/A N/A Experienced any changes in pain level or No No No management Left Footwear Regular Shoe Regular Shoe Right Footwear Regular Shoe Regular Shoe Pain Scale: 0-10 Numeric Is Patient Pain Free? Yes Yes Yes Teaching: Wound Center Compression Wraps & Stockings -Person Taught Patient,Family -Teaching Method Discussion, Demonstration -Response to teaching Verbalize understanding 03/10/22 03/13/22 03/17/22 15:14 11:18 14:28 - Today's Visit Information Type of service Follow-up Visit Nurse-only Follow-up Visit (Physician/VETERINARY MICROBIOLOGIST Visit (Physician/VETERINARY MICROBIOLOGIST ) ) Arrival Mode Ambulatory Ambulatory Ambulatory Transfer Assistance None Accompanied by Patient Identification Verified (Name & Yes Yes Yes ) Patient Requires Transmission-Based No Precautions Safety Precautions NA Vital Signs Temperature (97.8 F-99.1 F) 96.5 F L 97.8 F 97.5 F L Temperature Source Temporal Temporal Temporal Pulse Rate (60-100) 103 H 73 91 Pulse Location Monitor Monitor Monitor Respiratory Rate (12-18) 22 H Respiratory rate source Observation Oxygen Delivery Method Blood Pressure (90/60-120/80) 148/109 H 132/78 H 153/76 H Blood Pressure Mean (mm Hg) 122 96 101 Source Monitor Monitor Monitor Position Sitting Blood Pressure Location Right Arm History Since Last Visit- (Skip if this is Patient's initial visit) Have you changed medications since your No No No last visit? Any new allergies or adverse reactions No No No Had a fall/change in ADL's that may No No No increase risk of falls Signs or symptoms of abuse and/or No No No neglect since last visit Have you been in the hospital since your No No Yes last visit? Has dressing in place as prescribed Yes No Yes Has compression in place as prescribed Yes Yes Yes Has offloadiing in place as prescribed N/A N/A N/A Experienced any changes in pain level or No No No management Left Footwear Regular Shoe Regular Shoe Regular Shoe Right Footwear Regular Shoe Regular Shoe Regular Shoe Pain Scale: 0-10 Numeric Is Patient Pain Free? Yes Yes Yes Teaching: Wound Center Compression Wraps & Stockings -Person Taught -Teaching Method -Response to teaching - Nurse 1 - General Ulcer Measurement Start: 02/20/22 13:15 Freq: Status: Active Protocol: Activity Type Activity Date Activity User E-sign Co-sign Detail Recorded Client Recorded Date Recorded By Document 02/24/22 14:15 MW [id number] 02/24/22 14:21 MW Document 02/27/22 13:30 MW [id number] 02/27/22 13:32 MW Document 03/10/22 15:14 AK [id number] 03/10/22 15:16 AK Document 03/17/22 14:28 DL [id number] 03/17/22 14:37 DL 02/24/22 02/27/22 03/10/22 14:15 13:30 15:14 Wound Center Nurse 1 Lower Limb Edema Present Yes Right Calf (cm) 47.5 46.0 42 Right Ankle (cm) 28.5 28.5 27 Left Calf (cm) 48 39.5 44.2 Left Ankle (cm) 28.4 27.0 27 03/17/22 14:28 Wound Center Nurse 1 Lower Limb Edema Present Right Calf (cm) 46 Right Ankle (cm) 28 Left Calf (cm) 45 Left Ankle (cm) 27.8 WC - Nurse 2 - General Ulcer CM Notes Start: 02/20/22 13:15 Freq: Status: Active Protocol: Activity Type Activity Date Activity User E-sign Co-sign Detail Recorded Client Recorded Date Recorded By Document 02/24/22 14:33 MW [id number] 02/24/22 14:37 MW Document 03/10/22 15:24 [id number] 03/10/22 15:25 JF Document 03/17/22 14:57 [id number] 03/17/22 14:58 02/24/22 03/10/22 03/17/22 14:33 15:24 14:57 Pain Scale: 0-10 Numeric Is Patient Pain Free? Yes Yes Yes - Nurse 3 - General Ulcer D/C NN Start: 02/20/22 13:15 Freq: Status: Active Protocol: Activity Type Activity Date Activity User E-sign Co-sign Detail Recorded Client Recorded Date Recorded By Document 02/20/22 13:16 RB [id number] 02/20/22 13:18 RB Document 02/24/22 14:52 MW [id number] 02/24/22 14:53 MW Document 02/27/22 13:30 MW [id number] 02/27/22 13:32 MW Document 03/05/22 12:19 DL [id number] 03/05/22 12:20 DL Document 03/10/22 15:30 BMF [id number] 03/10/22 15:31 BMF Document 03/13/22 11:18 KR [id number] 03/13/22 11:19 KR Document 03/17/22 15:17 DL [id number] 03/17/22 15:17 DL 02/20/22 02/24/22 02/27/22 13:16 14:52 13:30 Vital Signs Temperature (97.8 F-99.1 F) 97.9 F 98.3 F Temperature Source Temporal Temporal Pulse Rate (60-100) 91 108 H Pulse Location Monitor Monitor Respiratory Rate (12-18) 20 H Respiratory rate source Observation Oxygen Delivery Method Room Air Blood Pressure (90/60-120/80) 150/93 H 150/84 H Blood Pressure Mean (mm Hg) 112 106 Source Monitor Monitor Position Sitting Blood Pressure Location Left Forearm Pain Scale: 0-10 Numeric Is Patient Pain Free? Yes Yes Yes Teaching: Wound Center Control Swelling with Leg Elevation -Person Taught Patient,Family -Teaching Method Discussion -Response to teaching Verbalize understanding Compression Wraps & Stockings -Person Taught Patient,Family Patient,Family -Teaching Method Discussion, Discussion, Demonstration Demonstration -Response to teaching Verbalize Verbalize understanding understanding Wound Care Nurse 3 BILATERAL LE -Lotion applied to leg before No No compression wrap -Multi-Layered Wrap Application Unna Boot - Unna Boot - Bilateral ($) Bilateral ($) -Unna Boots (Bilat) ($) 2 2 Left -Multi-Layered Wrap Application Unna Boot - Bilateral ($) -Unna Boots (Bilat) ($) 2 -Other [place] applied Treatment Response Procedure Tolerated Well WC - Visit Discharge Discharge Condition Stable Stable Stable Ambulatory Status Ambulatory Ambulatory Ambulatory Transportation Private Auto Private Auto Private Auto Accompanied by FAMILY Medication Reconcilliation completed & Yes No No provided to patient/care provider Clinical Summary of Care Provided Yes Yes Yes Facility Type Orders Sent 03/05/22 03/10/22 03/13/22 12:19 15:30 11:18 Vital Signs Temperature (97.8 F-99.1 F) 97.8 F Temperature Source Temporal Pulse Rate (60-100) 73 Pulse Location Monitor Respiratory Rate (12-18) Respiratory rate source Oxygen Delivery Method Blood Pressure (90/60-120/80) 132/78 H Blood Pressure Mean (mm Hg) 96 Source Monitor Position Sitting Blood Pressure Location Right Arm Pain Scale: 0-10 Numeric Is Patient Pain Free? Yes Yes Yes Teaching: Wound Center Control Swelling with Leg Elevation -Person Taught -Teaching Method -Response to teaching Compression Wraps & Stockings -Person Taught -Teaching Method -Response to teaching Wound Care Nurse 3 BILATERAL LE -Lotion applied to leg before compression wrap -Multi-Layered Wrap Application Unna Boot - Unna Boot - Unna Boot - Bilateral ($) Bilateral ($) Bilateral ($) -Unna Boots (Bilat) ($) 2 2 2 Left -Multi-Layered Wrap Application -Unna Boots (Bilat) ($) -Other Treatment Response Procedure Procedure Tolerated Well Tolerated Well WC - Visit Discharge Discharge Condition Stable Stable Stable Ambulatory Status Ambulatory Ambulatory Ambulatory Transportation Private Auto Private Auto Accompanied by Medication Reconcilliation completed & provided to patient/care provider Clinical Summary of Care Provided Facility Type Orders Sent 03/17/22 15:17 Vital Signs Temperature (97.8 F-99.1 F) Temperature Source Pulse Rate (60-100) Pulse Location Respiratory Rate (12-18) Respiratory rate source Oxygen Delivery Method Blood Pressure (90/60-120/80) Blood Pressure Mean (mm Hg) Source Position Blood Pressure Location Pain Scale: 0-10 Numeric Is Patient Pain Free? Yes Teaching: Wound Center Control Swelling with Leg Elevation -Person Taught -Teaching Method -Response to teaching Compression Wraps & Stockings -Person Taught -Teaching Method -Response to teaching Wound Care Nurse 3 BILATERAL LE -Lotion applied to leg before Yes compression wrap -Multi-Layered Wrap Application Multi-Layer Comp - Bilat ($ ) -Unna Boots (Bilat) ($) Left -Multi-Layered Wrap Application -Unna Boots (Bilat) ($) -Other Treatment Response Procedure Tolerated Well WC - Visit Discharge Discharge Condition Stable Ambulatory Status Ambulatory Transportation Private Auto Accompanied by Medication Reconcilliation completed & provided to patient/care provider Clinical Summary of Care Provided Facility Type Home Health Orders Sent Yes Assessment/Plan Assessment/Plan (1) PVD (peripheral vascular disease): CODE(S): I73.9 - Peripheral vascular disease, unspecified (2) Venous insufficiency: CODE(S): I87.2 - Venous insufficiency (chronic) (peripheral) (3) Edema of both lower extremities: CODE(S): R60.0 - Localized edema (4) Essential hypertension: CODE(S): I10 - Essential (primary) hypertension (5) Type 2 diabetes mellitus: CODE(S): E11.9 - Type 2 diabetes mellitus without complications QUALIFIERS: Diabetes mellitus chcf insulin use: without medical terminologist use Diabetes mellitus complication status: with other specified complication Qualified Code(s): E11.69 - Type 2 diabetes mellitus with other specified complication (6) Lymphedema: CODE(S): I89.0 - Lymphedema, not elsewhere classified PLAN: Plan Patient was evaluated at the wound healing center today.? No debridement was performed due to no open wound. Patient's edema/lymphedema has improved and there is no longer any excoriation on the right. There is no weeping bilaterally. Will apply 3M 2layer wraps bilaterally.? We measured for her for compression stockings so she can go to [employer] to purchase them. Venous and arterial studies have been ordered. Encourage patient to eat a high-protein low carbohydrate diet and to to watch the amount of sodium intake.? This will help with decreasing her edema, blood pressure, and her diabetes. She will follow-up Wednesday for nurse visit to have the 3M 2 layer wraps changed, or if she has her compression stockings, so they can instruct her how to wear them. If she does not have her compression stockings on Wednesday then we will re- apply the 3M 2 layer wraps and she will follow up next week with me so we can evaluate her edema and instruct her about her compression.
[2022-03-20 13:18] VITALS: BP 140/82; PULSE 96; RESP 18; TEMP 36.6
== END 2022-03-20 23:59 | disposition home or self-care (01) ==
LOC: WC 10:45
PROVIDERS: PCP Internal Medicine; Visit Provider Student in an Organized Health Care Education/Training Program
DX: R60.0 Localized edema (principal); E11.51 Type 2 diabetes mellitus with diabetic peripheral angiopathy without gangrene; J44.9 Chronic obstructive pulmonary disease, unspecified; I89.0 Lymphedema, not elsewhere classified; M79.604 Pain in right leg; I87.2 Venous insufficiency (chronic) (peripheral); I10 Essential (primary) hypertension; M79.89 Other specified soft tissue disorders; Z87.891 Personal history of nicotine dependence
CPT/HCPCS: 29580; 29581; 99212; 99213; G0463

== ENCOUNTER 2022-04-07 13:00 | Outpatient (RCR) | payer MEDICARE, MEDICAID, SELFPAY ==
[2022-03-21 01:39] VITALS: BP 140/82; PULSE 96; RESP 18; TEMP 36.6
[2022-03-24 14:05] VITALS: BP 149/88; PULSE 85; RESP 18; TEMP 36.3
--- NOTE | 2022-03-24 16:19 | PCM.WC.PN ---
History of Present Illness Date of Service: 03/24/22 Chief Complaint: Bilateral lower extremity swelling, edema, lymphedema History of Wound: Patient is a 72-year-old female who presents with excoriated area on her right medial leg along with significant edema/lymphedema and large amount of serous drainage from her right medial leg. The excoriated area on the right medial leg is painful. She went to the ED on 12/31/21 for pain and redness on her right lower leg where she was diagnosed with cellulitis and started on Doxycycline. She has a history of diabetes, COPD, HTN, edema in lower extremities, she sleeps in a chair and she is a former smoker. She denies wearing any compression. Today she denies fever, chills, nausea or vomiting. She states her appetite is good. Progress of Wound: Edema has improved with the 3M 2 layer wraps. She has not gone to [facility] for her compression stockings. Her vascular studies were ordered but she never scheduled them. Objective Data Objective Data Vital Signs: Vital Signs Temp Pulse Resp BP O2 Del Method 97.3 F L 85 18 149/88 H Room Air 03/24/22 14:05 03/24/22 14:05 03/24/22 14:05 03/24/22 14:05 03/24/22 14:05 Oxygen Delivery Method Room Air Charges/Coding Visit Charges Office Visits / Consults: 10609 OV L3 Est Physical Exam Const alert, oriented x3 and no apparent distress HEENT normocephalic Lymph Lymphatic Narrative: Bilateral lower leg edema/lymphedema, which has improved since having the 3 M 2 layer wraps on. Resp normal respiratory effort Cardio regular rate Extremity normal capillary refill and no calf tenderness Peripheral Pulses: Yes posterior tibial pulses present bilateral and dorsalis pedis pulses present bilateral Skin no rashes or lesions noted, skin turgor normal and no jaundice Skin Narrative: Bilateral lower extremity demonstrates +1 edema with rubor with hemosiderin deposition consistent with chronic venous stasis. No open wounds or drainage are noted. General Skin Exam: venous stasis and dermatitis Neuro oriented x3 and moves all extremities Psych affect normal Debridement Note Debridement Note No debridement was completed: No debridement was completed today Post-Debridement Measurements and Additional Note: Post-Debridement Measurements/Treatment JESÚS - Nurse 1 - General Ulcer Assessment Start: 03/24/22 14:05 Freq: Status: Active Protocol: KELSEY Activity Type Activity Date Activity User E-sign Co-sign Detail Recorded Client Recorded Date Recorded By Document 03/24/22 14:05 [facility] [id number] 03/24/22 14:08 [facility] 03/24/22 14:05 - Today's Visit Information Type of service Follow-up Visit (Physician/MAINTENANCE GROUNDMAN ) Arrival Mode Ambulatory Transfer Assistance None Patient Identification Verified (Name & Yes ) Patient Requires Transmission-Based No Precautions Vital Signs Temperature (97.8 F-99.1 F) 97.3 F L Temperature Source Temporal Pulse Rate (60-100) 85 Pulse Location Monitor Respiratory Rate (12-18) 18 Respiratory rate source Observation Oxygen Delivery Method Room Air Blood Pressure (90/60-120/80) 149/88 H Blood Pressure Mean (mm Hg) 108 Source Monitor Position Sitting Blood Pressure Location Left Arm History Since Last Visit- (Skip if this is Patient's initial visit) Have you changed medications since your No last visit? Any new allergies or adverse reactions No Had a fall/change in ADL's that may No increase risk of falls Signs or symptoms of abuse and/or No neglect since last visit Have you been in the hospital since your No last visit? Has compression in place as prescribed Yes Has offloadiing in place as prescribed N/A Experienced any changes in pain level or No management Left Footwear Regular Shoe Right Footwear Regular Shoe Pain Scale: 0-10 Numeric Is Patient Pain Free? Yes - Nurse 1 - General Ulcer Measurement Start: 03/24/22 14:05 Freq: Status: Active Protocol: Activity Type Activity Date Activity User E-sign Co-sign Detail Recorded Client Recorded Date Recorded By Document 03/24/22 14:05 [facility] [id number] 03/24/22 14:08 [facility] 03/24/22 14:05 Wound Center Nurse 1 Lower Limb Edema Present Yes Right Calf (cm) 48.6 Right Ankle (cm) 27.5 Left Calf (cm) 50.5 Left Ankle (cm) 27.8 - Nurse 2 - General Ulcer CM Notes Start: 03/24/22 14:05 Freq: Status: Active Protocol: Activity Type Activity Date Activity User E-sign Co-sign Detail Recorded Client Recorded Date Recorded By Document 03/24/22 14:22 [id number] 03/24/22 14:23 03/24/22 14:22 Pain Scale: 0-10 Numeric Is Patient Pain Free? Yes - Nurse 3 - General Ulcer D/C NN Start: 03/24/22 14:05 Freq: Status: Active Protocol: Activity Type Activity Date Activity User E-sign Co-sign Detail Recorded Client Recorded Date Recorded By Document 03/24/22 14:33 [id number] 03/24/22 14:34 03/24/22 14:33 Wound Care Nurse 3 Right -Stockings Yes Left -Stockings Yes Pain Scale: 0-10 Numeric Is Patient Pain Free? Yes WC - Visit Discharge Discharge Condition Stable Ambulatory Status Ambulatory Transportation Private Auto Medication Reconcilliation completed & Yes provided to patient/care provider Clinical Summary of Care Provided Yes Assessment/Plan Assessment/Plan (1) PVD (peripheral vascular disease): CODE(S): I73.9 - Peripheral vascular disease, unspecified (2) Venous insufficiency: CODE(S): I87.2 - Venous insufficiency (chronic) (peripheral) (3) Edema of both lower extremities: CODE(S): R60.0 - Localized edema (4) Essential hypertension: CODE(S): I10 - Essential (primary) hypertension (5) Type 2 diabetes mellitus: CODE(S): E11.9 - Type 2 diabetes mellitus without complications QUALIFIERS: Diabetes mellitus real estate specialist insulin use: without real estate specialist use Diabetes mellitus complication status: with other specified complication Qualified Code(s): E11.69 - Type 2 diabetes mellitus with other specified complication (6) Lymphedema: CODE(S): I89.0 - Lymphedema, not elsewhere classified PLAN: Plan Patient was evaluated at the wound healing center today.? No debridement was performed due to no open wound. Patient's edema/lymphedema has improved and there is no longer any excoriation on the right. There is no weeping bilaterally. We measured for her for compression stockings so she can go to [employer] to purchase them. She has not picked them up yet. Will place Double tubigrip until she picks up her 20-30 mmHg compression stockings. Encouraged her to continue to keep legs elevated when sitting. Venous and arterial studies have been ordered but never were scheduled. Follow up after she obtains her stockings so I can evaluate how they are fitting.
--- NOTE | 2022-04-07 12:52 | VDLE_ITS ---
Reason For Study: edema RIGHT LEFT CFV is compressible, spontaneous, phasic, CFV is compressible, spontaneous, phasic, competent and demonstrates normal competent, and demonstrates normal augmentation. augmentation. FV is compressible, spontaneous, phasic, FV is compressible, spontaneous, phasic, competent and demonstrates normal competent and demonstrates normal augmentation. augmentation. RT PerV is compressible. PTV is compressible. POP V, T/P Trunk, and PTV are dilated and LT PerV is compressible. noncompressible. POP V and T/P Trunk are dilated and SFJ is competent and measures .83 cm. noncompressible. GSV proximal thigh measures .87 x .97 cm. SFJ is competent and measures .73 cm. GSV at knee measures .62 x .58 cm. GSV proximal thigh measures .69 x .7 cm. GSV INCOMPETENT throughout for greater than GSV at knee measures .59 x .62 cm. 0.5 seconds. GSV INCOMPETENT throughout for greater than SSV proximal calf is competent and 0.5 seconds. measures .45 x .43 cm. SSV proximal calf is competent and Procedure measures .41 x .43 cm. This is a venous duplex using B-mode, color flow and spectral Doppler. Exam performed in department. The exam was of fair technical quality due to pt body habitus. Difficult to image calf veins. A preliminary report was called and/or faxed to Lizeth MONTANO. VL/Venous Duplex US - Luke Extrem Interpretation Summary Acute deep vein thrombosis is noted in the right popliteal vein. Acute deep vei n thrombosis is noted in the right tibio-peroneal trunk. Acute deep vein thrombosis is noted in the r ight posterior tibial vein. The remainder of the right lower extremity deep venous system is patent a nd compressible. Acute deep vein thrombosis is noted in the left popliteal vein. Acute deep vein thrombosis is noted in the left tibio-peroneal trunk. The remainder of the left lower extremity barbie p venous system is patent and compressible. The common femoral vein and femoral vein are competent bilaterally. The great saphenous veins appear bilaterally patent and compressible segmentally. S apheno-femoral junctions are bilaterally competent . Segmental valvular incompetence is noted within the great saphenous veins bilaterally. Small saphenous veins are patent and competent luke aterally. Ordering Physician: Tania Cortez Referring Physician: Luis Cortés Performed By: Russell French RVT
== END 2022-04-07 23:59 | disposition home or self-care (01) ==
LOC: WC 13:00
PROVIDERS: PCP Internal Medicine; Referring Provider Nurse Practitioner Family; Visit Provider Nurse Practitioner Family
DX: E11.51 Type 2 diabetes mellitus with diabetic peripheral angiopathy without gangrene (principal); J44.9 Chronic obstructive pulmonary disease, unspecified; E11.59 Type 2 diabetes mellitus with other circulatory complications; I82.403 Acute embolism and thrombosis of unspecified deep veins of lower extremity, bilateral; M79.604 Pain in right leg; I89.0 Lymphedema, not elsewhere classified; I87.2 Venous insufficiency (chronic) (peripheral); I10 Essential (primary) hypertension; R60.0 Localized edema; Z87.891 Personal history of nicotine dependence
CPT/HCPCS: 93970; 99212; G0463

== ENCOUNTER → 2022-05-04 | Outpatient (CLI) | payer MEDICARE, MEDICAID, SELFPAY ==
--- NOTE | 2022-05-04 12:41 | ECHOCS_ITS ---
Reason For Study: Dyspnea/SOB Procedure This was a 2D Doppler, Color Flow transthoracic echocardiogram. Contrast injection was performed. The study was technically difficult. Exam performed in department. Left Ventricle Normal LV size. Moderate concentric left ventricular hypertrophy. Left ventricular systolic function is normal. The estimated ejection fraction is 55 %. No regional wall motion abnormalities noted. Right Ventricle Mildly dilated right ventricle. Normal systolic function. Atria Normal left atrium. Normal right atrium. Mitral Valve Mitral valve not well visualized. Tricuspid Valve Normal tricuspid valve. Mild to moderate (1-2+) tricuspid valve insufficiency. Pulmonary artery systolic pressure is 48 mmHg. Moderate pulmonary hypertension. Aortic Valve Trisinus/trileaflet aortic valve. Pulmonic Valve Normal pulmonic valve. Great Vessels Normal aortic root. The pulmonary artery is normal size. Normal inferior vena cava. Pericardium/Pleural No pericardial effusion. Medication Diluted definity 4.5ml given slow IV push to enhance endocardial definition. MMode/2D Measurements & Calculations LVIDd: 4.2 cm IVSd: 1.5 cm Ao root diam: 3.0 cm LVIDs: 3.2 cm LVPWd: 1.4 cm RVDd: 3.6 cm FS: 24.7 % LAV(MOD-bp): 76.0 ml LA A4 area: 25.2 cm2 LA dimension(2D): 4.0 cm LAV(MOD-bp) Indexed: 31.7 ml/m2 LAV(MOD-sp2): 68.4 ml LAV(MOD-sp4): 81.5 ml RA A4 area: 22.2 cm2 Doppler Measurements & Calculations MV E max shawn: 63.1 cm/sec Lat Peak E' Shawn: 8.1 cm/sec Med Peak E' Shawn: 6.2 cm/sec MV A max shawn: 84.3 cm/sec E/E' lat: 7.8 E/E' med: 10.2 MV E/A: 0.75 Ao V2 max: 153.0 cm/sec LV V1 max: 117.6 cm/sec PA V2 max: 94.0 cm/sec Ao max P.4 mmHg LV V1 max P.5 mmHg Ao V2 mean: 109.6 cm/sec Ao mean P.3 mmHg Ao V2 VTI: 31.5 cm TR max shawn: 325.8 cm/sec TR max P.5 mmHg ECHO/Echo Complete W/ Contrast Interpretation Summary Normal LV size. Left ventricular systolic function is normal. The estimated ejection fraction is 55 %. Moderate concentric left ventricular hypertrophy. Pulmonary artery systolic pressure is 48 mmHg. Moderate pulmonary hypertension. Contrast injection was performed. Ordering Physician: Keven Corey Referring Physician: Luis Cortés Performed By: Ashley Michel, TAL, RVT
--- NOTE | 2022-05-04 12:50 | RAD_ITS ---
INDICATION: bilateral DVT EXAMINATION/TECHNIQUE: X-RAY - XR Chest 2 Views COMPARISON: 8 06/01/2021. FINDINGS: The lungs are clear. Tortuous and calcified thoracic aorta. The heart is mildly enlarged. No pleural effusion or pneumothorax. Degenerative changes of the thoracic spine and shoulders. RAD/Chest PA and Lateral IMPRESSION: No acute radiographic abnormalities. Electronically Signed: Tyler Pathak MD at 17:41 EST ,
== END | disposition home or self-care (01) ==
PROVIDERS: PCP Internal Medicine; Visit Provider Internal Medicine Medical Oncology
DX: I82.403 Acute embolism and thrombosis of unspecified deep veins of lower extremity, bilateral (principal); G47.33 Obstructive sleep apnea (adult) (pediatric)
CPT/HCPCS: 71046; 93306; Q9957; A4216; C8929

== ENCOUNTER 2022-06-05 06:14 | Day surgery (SDC) | payer MEDICARE, MEDICAID, SELFPAY ==
[2022-06-05] VITALS (7 sets, daily range): BP systolic 127–143; BP diastolic 59–81; PULSE 87–107; RESP 16–18; TEMP 36.2–36.8; O2SAT 90–95; BMI 50.5
--- NOTE | 2022-06-05 06:48 | HP.PCM_ITS ---
History and Physical Date of Admission: 06/05/22 Intake Vital Signs ? 06/01/2209:38 06/01/2209:40 Height 5 ft 6 in ? Weight: 313 lb ? BMI 50.5 50.5 BP 156/82 H 156/82 H Blood Pressure Location Rt brachial ? Position Sitting ? Respiration 18 ? Intake Visit Reasons:?ABDOMINAL PAIN Chief Complaint: F/u for DVT. Nipple Threader Required: No Is patient in pain?: No Allergies aspirin Adverse Reaction (Verified 06/01/22 09:37) Abd cramps/diarrheacodeine Adverse Reaction (Verified 06/01/22 09:37) Abd cramps/diarrheaPenicillins Adverse Reaction (Verified 06/01/22 09:37) Hives Medications spironolactone 25 mg tablet 25 mg PO DAILY COPD 01/31/21 [History Confirmed 06/01/22] fenofibrate nanocrystallized 48 mg tablet 48 mg PO DAILY 05/07/21 [History Confirmed 06/01/22] calcium carb 300 mg-D3 800 unit-mag ox 25 mg-copy operator 0.5 mg-austin-Zn tablet (Caltrate + D3 Plus Minerals) 1 tab PO DAILY 06/09/21 [History Confirmed 06/01/22] duloxetine 60 mg capsule,delayed release 60 mg PO DAILY #90 caps 07/22/21 [Rx Confirmed 06/01/22] Nebulizer #1 ea 10/06/21 [Rx Confirmed 06/01/22] carvedilol 25 mg tablet (Coreg) 25 mg PO BID #180 tabs 10/29/21 [Rx Confirmed 06/01/22] furosemide 40 mg tablet 40 mg PO BID HEART FAILURE #180 tabs 10/29/21 [Rx Confirmed 06/01/22] hydrocortisone 2.5 % topical cream 1 applic topical BID PRN skin irritation #28.35 grams 10/29/21 [Rx Confirmed 06/01/22] omeprazole 40 mg capsule,delayed release 40 mg PO DAILY #90 caps 10/29/21 [Rx Confirmed 06/01/22] oxybutynin chloride 5 mg tablet 5 mg PO BID #180 tabs 10/29/21 [Rx Confirmed 06/01/22] atorvastatin 80 mg tablet 40 mg PO QHS #90 tabs 01/30/22 [Rx Confirmed 06/01/22] stool softener PO 01/30/22 [History Confirmed 06/01/22] albuterol sulfate 2.5 mg/3 mL (0.083 %) solution for nebulization 2.5 mg (3 mL) inhalation Q4H PRN Sob &/Or Wheezing #180 mL 04/01/22 [Rx Confirmed 06/01/22] apixaban 5 mg tablet (Eliquis) 5 mg PO BID #180 tabs 04/07/22 [Rx Confirmed 06/01/22] levothyroxine 100 mcg tablet 100 mcg PO DAILY HYPOTHYROIDISM #90 tabs 04/07/22 [Rx Confirmed 06/01/22] albuterol sulfate 90 mcg/actuation aerosol inhaler 2 puff inhalation Q6H PRN shortness of breath or wheezing #8.5 grams 05/08/22 [Rx Confirmed 06/01/22] PFSH Medical History? Abdominal pain Asthma Chronic respiratory failure with hypoxia COPD (chronic obstructive pulmonary disease) Depression Dermatitis Diabetes mellitus type 2 in obese Difficulty swallowing DVT, bilateral lower limbs Essential hypertension GERD (gastroesophageal reflux disease) Health care maintenance Hyperlipidemia Hypothyroidism Inactivity Left ventricular hypertrophy Lymphedema Morbid obesity with BMI of 45.0-49.9, adult DOLORES (obstructive sleep apnea) Pneumonia due to COVID-19 virus (01/30/21) Secondary pulmonary arterial hypertension Sore throat Type 2 diabetes mellitus Ulcer of right lower extremity Family History? Grandfather CancerDaughter Ovarian cancerBrother Diabetes Kidney disease Social History? Smoking Status:? Former smoker Tobacco: How many years used:? 30 how long ago did patient quit smoking:? 18 years alcohol intake:? never substance use type:? does not use what type of physical activity do you participate in:? none HPI HPI HPI: Patient is a 72-year-old female here for dysphagia.? She reports that she does have some occasional epigastric but she has difficulty swallowing especially food but she does have difficulty with liquids occasionally.? Patient denies ch ronic reflux. ROS General General: Yes weight change and fatigue; No appetite, colon cancer, breast cancer or weakness HEENT HEENT: Yes difficulty swallowing; No eye injury, eye surgery, swollen glands or hoarseness Endo Endocrine: No thyroid disease, diabetes mellitus, thyroid cancer, Hair loss, heat intolerance or cold intolerance Skin Skin: No rash or changing moles Breast Breast: No left breast lump, right breast lump, nipple discharge, breast pain, abnormal mammogram, abnormal US or breast enlargement Musc Musculoskeletal: Yes back problems and arthritis; No rheumatoid arthritis, gout or joint pain Cardio Cardiovascular: Yes high blood pressure; No murmur, pacemaker, heart disease, atrial fibrillation, heart attack, heart stent, palpitations, shortness of breat with exertion or chest pain Psych Psychiatric: Yes depression; No anxiety or hearing voices Resp Respiratory: Yes shortness of breath, Yes sleep apnea, No cough, No COPD, No asthma, No emphysema and No wheezing Gastro Gastrointestinal: No abdominal pain, No nausea or vomiting, No diarrhea, Yes constipation, No blood in stool, Yes acid reflux, Yes hemorrhoids, No ulcers, No gallbladder problem and No black,tarry stools Andres Hematologic: Yes blood thinners, No blood disorders, Yes bleeding, No anemia and Yes blood clots Neuro Neurologic: No system reviewed and no additional complaints, except as documented, No as per HPI, No abnormal gait, No abnormal hearing, No abnormal movements, No abnormal speech, No behavioral changes, No burning sensations, No confusion, No convulsions, No disequilibrium, No dizziness, No localized weakness, No frequent falls, No headache(s), No lack of coordination, No loss of vision, No memory loss, No numbness, No other visual disturbances, No radicular pain, No restless legs, No sensory deficit, No syncope, No tingling, No tremor(s), No weakness and No other Exam Const General: cooperative Nutritional Appearance: obese Orientation: alert and oriented x3 HENMT Head: normal to inspection Neck Neck: normal visual inspection and full ROM Chest Chest palpation & inspection: normal inspection of the chest Resp Effort & Inspection: normal respiratory effort Auscultation: clear to auscultation bilaterally Cardio Rate: regular rate Rhythm: regular rhythm GI Inspection: non-distended Palpation: soft and nontender Skin General: no rashes or lesions noted Neuro General: patient alert and patient oriented x3 Extrem General: full ROM Psych Appearance: grossly normal Mental Status: mental status grossly normal Assessment and Plan Assessment and Plan (1) Difficulty swallowing: ?Status:?Chronic ?Qualifiers: ?Dysphagia type:?unspecified? Qualified Code(s):?R13.10 - Dysphagia, unspecified ?Plan: Patient reports she has been having dysphagia for months and has been ignoring it.? She reports that solids and liquids are both getting stuck.? She denies history of acid reflux and appears that she is on a PPI but she does not remember her medications.? I discussed performing EGD with possible dilation.? I have asked her to stop her Eliquis for 2 days prior to the EGD.? I discussed the increased risk of bleeding and perforation with dilation.? Patient understands the risks and is willing to proceed with EGD. I explained endoscopy in detail to the patient.? I explained the risks including but not limited to stroke or heart attack with anesthesia, perforation of the GI tract, bleeding, infection.? I explained that any of these could necessitate further emergency surgery.? The patient understands and all questions were answered sufficiently.? The patient wishes to proceed with procedure. Ant Kasper MD Pager: [facility] [address] [place] [address] [address] [place] [address] Office: I have examined the patient and the H&P has been reviewed. There are no clinical changes since date of exam.
[2022-06-05] MEDS: Lactated Ringers 1,000 ML 15 ML IV (07:12)
--- NOTE | 2022-06-05 07:30 | IMM_PTH ---
PATIENT: JERRY BRO LOC: EN U#:[id number] AGE/SX: 72/F ROOM: RE06/05/[address]: Dr. Ant Kasper MD : 1950 BED: DIS: 06/05/2022 SPEC #: [id number] RECD: 06/05/22 14:50 STATUS: CHELY REQ #: [id number] LATISHA: 06/05/22 07:[address]: Ant Kasper DEPT: IMMUNOHISTOCHEMISTRY RECD BY: Cande Lira ENTERED: 06/05/22 14:51 SP TYPE: IMMUNO OTHR DR: Dr. Luis Cortés MD Tissues: A - Stomach, NOS Procedures: H Pylori (initial) PHYSICIAN & INSTITUTION [place] [id number] SPECIMEN INFORMATION: Tissue Source: A - Antrum Clinical Info: Difficulty swallowing Specimen Number: [id number] CPT code: 28481 METHODOLOGY: Deparaffinized sections of prefer/formalin-fixed tissue or PAP/DQ stained slides are incubated with monoclonal/polyclonal antibodies/oligonucleotide probes. Localization is made via biotin free immunoperoxidase method. Appropriate controls are performed and reacted as expected. Results on target cell population are indicated in the following table: RESULTS: ANTIBODY / CLONE RESULT Block A H Pylori (polyclonal) positive These tests were developed and their performance characteristics determined by [facility]. They may not have been cleared or approved by the U.S. Food and Drug Administration. The FDA has determined that such clearance or approval is not necessary. The above immunohistochemical/dualISH markers are ordered and reviewed by the Pathologist. INTERPRETATION: A. Antrum, biopsy: Positive for numerous Helicobacter pylori organisms. SJ:slava 06/08/2022
--- NOTE | 2022-06-05 07:30 | EGD_PTH ---
PATIENT: JERRY BRO LOC: EN U#:[id number] AGE/SX: 72/F ROOM: RE06/05/[address]: Dr. Ant Kasper MD : 1950 BED: DIS: 06/05/2022 SPEC #: [id number] RECD: 06/05/22 12:13 STATUS: CHELY REShyanne #: [id number] LATISHA: 06/05/22 07:[address]: Ant Kasper DEPT: SURGICAL PATHOLOGY RECD BY: Apoorva Ambrocio ENTERED: 06/05/22 13:17 SP TYPE: EGD BIOPSY OTHR DR: Dr. Luis Cortés MD Tissues: A - Gastric mucous membrane B - Esophagus, NOS Procedures: Surgery Specimen Level IV HEADER OPERATION: EGD ([facility]) PRE-OP DIAGNOSIS: Difficulty swallowing TISSUE SUBMITTED: A ? Antrum for H. pylori and path, B ? Mid esophagus MICROSCOPIC DIAGNOSIS A. Antrum, biopsy: Moderate to marked chronic active gastritis. See comment. B. Mid esophagus, biopsy: Fragments of squamous mucosa with minimal congestion and acute and chronic inflammation. MARCO A:slava 06/08/2022 COMMENT A. The results of immunohistochemistry for Helicobacter pylori will be reported separately ([id number]). MICROSCOPIC DESCRIPTION Slides are reviewed. GROSS DESCRIPTION A - Received in fixative is one container labeled with the patient's name and designated antrum biopsy. The specimen consists of multiple irregular fragments of light weaver soft tissue that in aggregate measure 0.8 x 0.6 x 0.1 cm. The specimen is totally submitted in one cassette. B - Received in fixative is one container labeled with the patient's name and designated mid esophagus. The specimen consists of two irregular fragments of light weaver soft tissue that in aggregate measure 0.6 x 0.2 x 0.1 cm. The specimen is totally submitted in one cassette. / AM:slava 06/05/2022 TC:2 CPT: 54487 x2
[2022-06-05 07:41] LABS: Bedside Glucose 184 mg/dL (74-106)
--- NOTE | 2022-06-05 07:49 | OP.EGD_ITS ---
Patient Name: Liz Wadsworth Procedure Date: 06/05/2022 7:17 AM Date of : 1950 Age: 72 Procedure: Upper GI endoscopy Indications: Dysphagia Providers: Ant Kasper MD Referring MD: Luis Cortés MD Medicines: Monitored Anesthesia Care Patient Profile: This is a 72 year old female. Refer to note in patient chart for documentation of history and physical. Complications: No immediate complications. Procedure: Pre-Anesthesia Assessment: - Prior to the procedure, a History and Physical was performed, and patient medications and allergies were reviewed. The patient's tolerance of previous anesthesia was also reviewed. The risks and benefits of the procedure and the sedation options and risks were discussed with the patient. All questions were answered, and informed consent was obtained. Prior Anticoagulants: The patient has taken Eliquis (apixaban), last dose was 2 days prior to procedure. After reviewing the risks and benefits, the patient was deemed in satisfactory condition to undergo the procedure. After obtaining informed consent, the endoscope was passed under direct vision. Throughout the procedure, the patient's blood pressure, pulse, and oxygen saturations were monitored continuously. The gastroscope was introduced through the mouth, and advanced to the fourth part of duodenum. The upper GI endoscopy was accomplished without difficulty. The patient tolerated the procedure well. Scope In: 7:33:43 AM Scope Out: 7:38:33 AM Total Procedure Duration Time 0 hours 4 minutes 50 seconds Findings: The esophagus was normal. The examined duodenum was normal. Few oozing superficial gastric ulcers with pigmented material were found in the gastric antrum. Biopsies were taken with a cold forceps for histology. Impression: - Normal esophagus. - Normal examined duodenum. - Oozing gastric ulcers with pigmented material. Biopsied. Recommendation: - Discharge patient to home. - Resume previous diet. - Continue present medications. - Await pathology results. - Resume Eliquis (apixaban) at prior dose tomorrow. - Use Prilosec (omeprazole) 40 mg PO daily. - Use sucralfate tablets 1 gram PO QID. Procedure Code(s): --- Professional --- 29990, Esophagogastroduodenoscopy, flexible, transoral; with biopsy, single or multiple Diagnosis Code(s): --- Professional --- K25.4, Chronic or unspecified gastric ulcer with hemorrhage R13.10, Dysphagia, unspecified CPT copyright 2017 [employer]. All rights reserved. The codes documented in this report are preliminary and upon mechatronics engineer review may be revised to meet current compliance requirements. Ant Kasper MD 06/05/2022 7:49:20 AM This report has been signed electronically. Number of Addenda: 0 Note Initiated On: 06/05/2022 7:17 AM
--- NOTE | 2022-06-05 07:50 | OP.CCLET_ITS ---
06/05/2022 Luis Cortés MD [address] [place] [address] Re : Upper GI endoscopy procedure for Liz Wadsworth Dear Dr. Cortés This procedure was performed on Sunday, June 05, 2022. My impressions and recommendations are as follows: Impressions : - Normal esophagus. - Normal examined duodenum. - Oozing gastric ulcers with pigmented material. Biopsied. Recommendations : - Discharge patient to home. - Resume previous diet. - Continue present medications. - Await pathology results. - Resume Eliquis (apixaban) at prior dose tomorrow. - Use Prilosec (omeprazole) 40 mg PO daily. - Use sucralfate tablets 1 gram PO QID. My findings are described in the full procedure note, which is enclosed. If I can be of further assistance, please feel free to contact me at Doctor phone number(s): , Work: . Sincerely, Ant Kasper MD 06/05/2022 7:49:20 AM This report has been signed electronically.
== END 2022-06-05 08:41 | disposition home or self-care (01) ==
LOC: EN 06:17 → AC 06:17
PROVIDERS: PCP Internal Medicine; Referring Provider Internal Medicine; Visit Provider Surgery
PROC: 0DJ08ZZ Inspection of Upper Intestinal Tract, Via Natural or Artificial Opening Endoscopic (ICD-10-PCS; CPT 43235; principal; 2022-06-05 07:25)
DX: K29.50 Unspecified chronic gastritis without bleeding (principal); J44.9 Chronic obstructive pulmonary disease, unspecified; Z68.43 Body mass index [BMI] 50.0-59.9, adult; B96.81 Helicobacter pylori [H. pylori] as the cause of diseases classified elsewhere; K25.9 Gastric ulcer, unspecified as acute or chronic, without hemorrhage or perforation; G47.33 Obstructive sleep apnea (adult) (pediatric); E66.9 Obesity, unspecified; E78.5 Hyperlipidemia, unspecified; E03.9 Hypothyroidism, unspecified; F32.A Depression, unspecified; Z86.718 Personal history of other venous thrombosis and embolism; Z86.16 Personal history of COVID-19; Z99.81 Dependence on supplemental oxygen; Z87.891 Personal history of nicotine dependence; Z79.899 Other long term (current) drug therapy; Z79.01 Long term (current) use of anticoagulants
CPT/HCPCS: 43239; 82962; 88305; 88342; J7120; J2405

== ENCOUNTER → 2022-07-28 | Outpatient (CLI) | payer MEDICARE, MEDICAID, SELFPAY ==
[2022-07-30 17:32] LABS: H.Pylori Breath Test Positive (Negative)
== END | disposition home or self-care (01) ==
LOC: LABSPEC 15:01
PROVIDERS: PCP Internal Medicine; Referring Provider Surgery; Visit Provider Surgery
DX: A04.8 Other specified bacterial intestinal infections (principal)
CPT/HCPCS: 83013

== ENCOUNTER 2022-08-14 10:09 | Outpatient (RCR) | payer MEDICARE, MEDICAID, SELFPAY ==
[2022-08-14 10:19] VITALS: TEMP 36.2; BMI 50.7
--- NOTE | 2022-08-14 11:03 | PCM.WC.HP ---
History of Present Illness Date of Service: 08/14/22 Chief Complaint: LLE wounds, bilateral lower extremity swelling History of Wound: Patient has been treated at the [facility] in the past for similar wounds, most recently February 2022. She is also known to me from the vascular surgery clinic where we evaluated her for BLE DVT and venous insufficiency. Patient was started on Eliquis for the provoked DVTs. Consistent measured compression was initiated as she had not previously worn compression between wound episodes. At that time, we did also discuss that should wounds recur, could consider GSV ablation. Patient's medical history is also significant for CHF, COPD, T2DM, lymphedema. She reports that she has not been taking her furosemide at all for a few weeks as she lost this month's supply. She states she has been wearing the compression stockings but feels her swelling has been worse over the last couple of weeks and then these blisters appeared, ruptured, and turned into the superficial wounds she presents with today. [facility] Medical History (Updated 08/16/22 @ 00:04 by SUNIL Toussaint) Abdominal pain Alcohol use Asthma Back pain Bladder disease Blister Cardiology follow-up encounter Chronic respiratory failure with hypoxia Constipation COPD (chronic obstructive pulmonary disease) CPAP (continuous positive airway pressure) dependence Depression Depression Dermatitis Diabetes Diabetes mellitus type 2 in obese Dietary restriction Difficulty swallowing Difficulty swallowing DVT (deep venous thrombosis) DVT, bilateral lower limbs Easy bruising Essential hypertension Former smoker Gastric ulcer GERD (gastroesophageal reflux disease) Health care maintenance History of CHF (congestive heart failure) History of echocardiogram History of edema History of pain when walking Hx of cyst of breast Hyperlipidemia Hypertension Hypothyroidism Inactivity Left ventricular hypertrophy Leg cramps Lymphedema Morbid obesity with BMI of 45.0-49.9, adult Neuropathy On home oxygen therapy DOLORES (obstructive sleep apnea) Pneumonia due to COVID-19 virus (01/30/21) Secondary pulmonary arterial hypertension Shortness of breath on exertion Sore throat Syncope Type 2 diabetes mellitus Ulcer of right lower extremity Urinary incontinence with continuous leakage Walker as ambulation aid Wears dentures Wears glasses Home Medications fenofibrate nanocrystallized 48 mg tablet 48 mg PO DAILY 05/07/21 [History Last Taken Unknown] calcium carb 300 mg-D3 800 unit-mag ox 25 mg-copy lathe operator 0.5 mg-austin-Zn tablet (Caltrate + D3 Plus Minerals) 1 tab PO DAILY 06/09/21 [History Last Taken Unknown] duloxetine 60 mg capsule,delayed release 60 mg PO DAILY #90 caps 07/22/21 [Rx Last Taken Unknown] Nebulizer #1 ea 10/06/21 [Rx Last Taken Unknown] carvedilol 25 mg tablet (Coreg) 25 mg PO BID #180 tabs 10/29/21 [Rx Last Taken Unknown] furosemide 40 mg tablet 40 mg PO BID HEART FAILURE #180 tabs 10/29/21 [Rx Last Taken Unknown] hydrocortisone 2.5 % topical cream 1 applic topical BID PRN skin irritation #28.35 grams 10/29/21 [Rx Last Taken Unknown] oxybutynin chloride 5 mg tablet 5 mg PO BID #180 tabs 10/29/21 [Rx Last Taken Unknown] atorvastatin 80 mg tablet 40 mg PO QHS #90 tabs 01/30/22 [Rx Last Taken Unknown] apixaban 5 mg tablet (Eliquis) 5 mg PO BID #180 tabs 04/07/22 [Rx Last Taken 06/01/22] levothyroxine 100 mcg tablet 100 mcg PO DAILY HYPOTHYROIDISM #90 tabs 04/07/22 [Rx Last Taken 06/05/22 05:00] albuterol sulfate 90 mcg/actuation aerosol inhaler 2 puff inhalation Q6H PRN shortness of breath or wheezing #8.5 grams 05/08/22 [Rx Last Taken Unknown] docusate sodium 100 mg capsule (Stool Softener) 100 mg PO BID 06/04/22 [History Last Taken Unknown] pantoprazole 40 mg tablet,delayed release 40 mg PO DAILY #90 tabs 07/06/22 [Rx Last Taken Unknown] metronidazole 500 mg tablet 500 mg PO Q12H 08/05/22 [History Last Taken Unknown] apixaban 5 mg tablet (Eliquis) 5 mg PO BID 08/14/22 [History Last Taken Unknown] levothyroxine 100 mcg capsule 100 mcg PO DAILY 08/14/22 [History Last Taken Unknown] sucralfate 1 gram tablet 1 g PO BID 08/14/22 [History Last Taken Unknown] Allergy/AdvReac Type Severity Reaction Status Date / Time aspirin AdvReac Abd Verified 08/05/22 16:23 cramps/diarrhea codeine AdvReac Abd Verified 08/05/22 16:23 cramps/diarrhea Penicillins AdvReac Hives Verified 08/05/22 16:23 Family History Grandfather Cancer Daughter Ovarian cancer Brother Diabetes Kidney disease Surgical History History of bunionectomy History of esophagogastroduodenoscopy (EGD) Hx of cholecystectomy Hx of colonoscopy Social History Smoking Status: Former smoker Tobacco: How many years used: 30 how long ago did patient quit smokin years alcohol intake: never substance use type: does not use what type of physical activity do you participate in: none ROS Constitutional Constitutional: Denies change in weight, chills, difficulty sleeping, fatigue, fever(s), frequent falls, lethargy, night sweats or weakness Eyes Eyes: Denies blindness, blurry vision, change in vision, eye pain or ptosis ENT HEENT: Denies abnormal hearing, change in voice, hearing loss, loss taste/smell or vertigo Cardiovascular Cardiovascular: Denies abdominal pain, chest pain, claudication, cold extremities, cyanosis, diaphoresis, dyspnea, dyspnea on exertion, fatigue, hypertension, irregular heart rhythm, orthopnea, palpitations, radiating jaw, neck or arm pain or syncope Respiratory/Chest Respiratory/Chest: Denies cough, dyspnea, hemoptysis, nail bed cyanosis, adrianna-oral cyanosis, portable oxygen @ home, productive cough or wheezing Gastrointestinal Gastrointestinal: Denies abdominal pain, change in bowel habits, change in stool character, coffee ground emesis, melena, rectal bleeding or weight changes Genitourinary Genitourinary: Denies abdominal discomfort, burning urination, difficulty urinating or flank pain Musculoskeletal Musculoskeletal: Denies abnormal gait, difficulty walking, joint swelling, muscle cramps, muscle weakness or numbness Integumentary Integumentary: Denies change in pigmentation, changing lesions, erythema, lesions, rash, skin ulcer, unusual bruising or wounds Neurologic Neurologic: Denies abnormal gait, abnormal movements, abnormal speech, behavior changes, frequent falls, syncope, tingling or weakness Psychiatric Psychiatric: Denies behavioral changes, cognitive impairment or depression Endocrine Endocrinology: Denies change in body appearance, cold intolerance, excessive sweating, flushing, heat intolerance, palpitations, polydipsia, polyphagia or polyuria Hematologic/Lymphatic Hematologic/Lymphatic: Denies anemia, easy bleeding, easy bruising or lymphadenopathy Allergic/Immunologic Allergic/Immunologic: Denies seasonal rhinorrhea, throat swelling, tongue swelling, hives or asthma Vital Signs Vital Signs Vital Signs: 08/14/22 10:19 Temperature 97.1 F L Temperature Source Temporal Weight Weight: 300 lb Body Mass Index (BMI) 48.4 Physical Exam Const alert, oriented x3 and no apparent distress General Appearance: cooperative HEENT normocephalic, head/scalp atraumatic, hearing grossly normal bilaterally, external ears normal and external nose normal Eyes EOMs intact bilaterally General Eye: normal appearance of both eyes Neck full ROM General: normal visual inspection and trachea midline Resp normal respiratory effort, no use of accessory muscles and clear to auscultation bilaterally Effort and Inspection: able to speak in complete sentences and symmetric chest movement; Negative for labored, stridor or audible wheezes Auscultation: clear to auscultation bilaterally and diminished lung sounds Cardio regular rate and regular rhythm Peripheral Pulses: brachial pulses present and radial pulses present Extremity Extremity Narrative: Significant bilateral lower extremity edema. Normal capillary refill. Skin Skin Narrative: Bilateral venous stasis dermatitis, scattered fluid-filled blisters. Wounds: wounds noted Wound Narrative: Cluster of superficial wounds on lateral and medial aspect of left lower leg. Irregularly shaped, some maceration of periwound skin. No excessive erythema, warmth, tenderness to palpation, foul odor. Significant amount of serous drainage noted. Neuro oriented x3, CN's II-XII intact bilaterally, moves all extremities and no focal motor deficits Coordination / Balance: tandem gait normal Psych mental status grossly normal Appearance: grossly normal Attitude: calm and engaged Activity / Motor Behavior: appropriate eye contact Speech: normal speech Mood & Affect: euthymic mood Attention / Concentration: attention grossly intact Memory / Cognition: memory grossly intact Debridement Note Debridement Note Wound debrided: Left lateral lower leg cluster Laterality: Left Type of Debridement: Excisional debridement Anesthesia Used: 5% Lidocaine Gel Depth: Down to and including healthy tissue Percentage of wound debrided: 100 Instrument Used: 5mm curette Tissue Removed: slough, devitalized tissue Severity: Limited To Skin Breakdown Amount of bleeding with debridement: Mild Bleeding Controlled with: Pressure Patient tolerated procedure: Patient tolerated procedure well Post-Debridement Measurements and Additional Note: Post-Debridement Measurements/Treatment WC - Nurse 1 - General Ulcer Assessment Start: 08/14/22 10:15 Freq: Status: Active Protocol: KELSEY Activity Type Activity Date Activity User E-sign Co-sign Detail Recorded Client Recorded Date Recorded By Document 08/14/22 10:19 GLENN [id number] 08/14/22 10:26 KS 08/14/22 10:19 WC - Today's Visit Information Type of service Initial Visit Arrival Mode Ambulatory Patient Identification Verified (Name & Yes ) Patient Requires Transmission-Based No Precautions Safety Precautions NA Height and Weight Height 5 ft 6 in Weight 300 lb Weight in Pounds 300.0 lbs Weight Measurement Method Estimated by Patient Body Mass Index (BMI) 48.4 BMI Classification Obese BSA - Marie 2.38 Vital Signs Temperature (97.8 F-99.1 F) 97.1 F L Temperature Source Temporal History Since Last Visit- (Skip if this is Patient's initial visit) Left Footwear Regular Shoe Right Footwear Regular Shoe Pain Scale: 0-10 Numeric Is Patient Pain Free? Yes - Nurse 1 - General Ulcer Measurement Start: 08/14/22 10:15 Freq: Status: Active Protocol: Activity Type Activity Date Activity User E-sign Co-sign Detail Recorded Client Recorded Date Recorded By Document 08/14/22 10:19 GLENN [id number] 08/14/22 10:26 [place] 08/14/22 10:19 Wound Center Nurse 1 L lateral leg cluster -Combined with other wound No -Current Size (cm) - Length 6.4 -Current Size (cm) - Width 2.4 -Current Size (cm) - Depth 0.1 -Total Square Cm 15.36 -Photo Taken Yes -Tunneling No -Undermining/Tunneling No -Circular Undermining No -Change in Wound Grade/Stage No -Exudate Amt Medium -Exudate Type Serosanguineous -Wound Margin Distinct, Outline Attached -Granulation Amt Medium (34-66%) -Granulation Quality Red -Slough/Fibrin Yes -Necrosis Amt Medium (34-66%) -Necrotic Tissue Type Adherent Slough -Structure Exposed N/A -Texture (Adrianna-wound Skin Appearance) No Abnormality, Assessed -Moisture (Adrianna-wound Skin Appearance) No Abnormality, Assessed -Color (Adrianna-wound Skin Appearance) No Abnormality, Assessed -Temperature (Adrianna-wound Skin No Abnormality Appearance) (Pt Warm) -Tenderness on Palpation (Adrianna-wound No Skin Appearance) -Ulcer Cleansing Rinsed/ Irrigated with Saline -Foul Odor after Cleansing No -Anesthetic Used 5% Lidocaine Gel #4 L medial LE cluster -Current Size (cm) - Length 1.5 -Current Size (cm) - Width 2.2 -Current Size (cm) - Depth 0.1 -Total Square Cm 3.30 -Date of Last Picture (Recall this 08/14/22 field) -Photo Taken Yes -Tunneling No -Undermining/Tunneling No -Circular Undermining No -Change in Wound Grade/Stage No -Exudate Amt Medium -Exudate Type Serosanguineous -Wound Margin Distinct, Outline Attached -Granulation Amt Medium (34-66%) -Granulation Quality Mineral -Slough/Fibrin Yes -Necrosis Amt Medium (34-66%) -Necrotic Tissue Type Adherent Slough -Structure Exposed N/A -Texture (Adrianna-wound Skin Appearance) No Abnormality, Assessed -Moisture (Adrianna-wound Skin Appearance) No Abnormality, Assessed -Color (Adrianna-wound Skin Appearance) No Abnormality, Assessed -Temperature (Adrianna-wound Skin No Abnormality Appearance) (Pt Warm) -Tenderness on Palpation (Adrianna-wound No Skin Appearance) -Ulcer Cleansing Rinsed/ Irrigated with Saline -Foul Odor after Cleansing No -Anesthetic Used 5% Lidocaine Gel Right Calf (cm) 50.6 Right Ankle (cm) 28.5 Left Calf (cm) 52.1 Left Ankle (cm) 29.3 WC - Nurse 3 - General Ulcer D/C NN Start: 08/14/22 10:15 Freq: Status: Active Protocol: Activity Type Activity Date Activity User E-sign Co-sign Detail Recorded Client Recorded Date Recorded By Document 08/14/22 10:59 JAREK [id number] 08/14/22 11:00 JAREK 08/14/22 10:59 Wound Care Center Nurse 3 L lateral leg cluster -Ulcer Cleansing Rinsed/ Irrigated with Saline -Foul Odor after Cleansing No -Primary Dressing Applied Fibracol Plus 4x4,Optilok 6. 5x10 -Primary Dressing Covered/Secured with Dry Gauze & Roll Gauze -Fibracol Plus 4x4 1 -Optilok 6.5x10 1 #4 L medial LE cluster -Ulcer Cleansing Rinsed/ Irrigated with Saline -Foul Odor after Cleansing No -Primary Dressing Applied Fibracol Plus 4x4,Optilok 8x12 -Primary Dressing Covered/Secured with Dry Gauze & Roll Gauze -Fibracol Plus 4x4 0 -Optilok 8x12 1 Right -Tubular Bandage Single Layer -Size of Tubigrip Used Size E -Size E ($) 1 Left -Tubular Bandage Single Layer -Size of Tubigrip Used Size E -Size E ($) 1 Pain Scale: 0-10 Numeric Is Patient Pain Free? Yes WC - Visit Discharge Discharge Condition Stable Ambulatory Status Ambulatory Transportation Private Auto Accompanied by friend Medication Reconcilliation completed & Yes provided to patient/care provider Clinical Summary of Care Provided Yes Additional Wound Wound debrided: Left medial lower leg cluster Laterality: Left Type of Debridement: Excisional debridement Anesthesia Used: 5% Lidocaine Gel Depth: Down to and including healthy tissue Percentage of wound debrided: 100 Instrument Used: 5mm curette Tissue Removed: slough, devitalized tissue Severity: Limited To Skin Breakdown Amount of bleeding with debridement: Mild Bleeding Controlled with: Pressure Patient tolerated procedure: Patient tolerated procedure well Charges/Coding Wound Center CF Procedures [id number]: [id number] RMVL DEVITAL TIS 20 CM/< Multi Select Codes Wound Center CF Procedures [id number]: [id number] RMVL DEVITAL TIS 20 CM/< Assessment/Plan Assessment/Plan (1) Wound of left lower extremity: CODE(S): S81.802A - Unspecified open wound, left lower leg, initial encounter PLAN: Plan Patient presents with superficial wound clusters to lateral and medial aspect left lower leg which appears secondary to her significant lower extremity swelling. Bilateral lower extremity seems to be multi-factorial with CHF, lymphedema, venous insufficiency, and post-thrombotic effects. Will apply primary dressing of fibracol, wrap in kerlix. Change dressing at least once daily, more often as needed to keep clean and dry. Do not submerge wounds in water. Compression will be very important to the healing process. Will apply 20-30mmHg compression with tubigrips bilaterally. Encouraged patient to reach out to pharmacy to see if she can get an early refill of her furosemide so that she will be able to take as prescribed as this will likely help to reduce her swelling as well. No signs/symptoms of infection today. Do not think wound cultures are indicated at this time. We discussed the importance of good blood sugar control, increase protein in diet. Elevate legs when resting. Patient will return to [facility] in 1 week or sooner as needed.
== END 2022-08-18 23:59 | disposition home or self-care (01) ==
LOC: WC 10:09
PROVIDERS: PCP Internal Medicine; Visit Provider Physician Assistant
DX: E11.622 Type 2 diabetes mellitus with other skin ulcer (principal); L97.821 Non-pressure chronic ulcer of other part of left lower leg limited to breakdown of skin; J44.9 Chronic obstructive pulmonary disease, unspecified; I11.0 Hypertensive heart disease with heart failure; I50.9 Heart failure, unspecified; E11.40 Type 2 diabetes mellitus with diabetic neuropathy, unspecified; E11.59 Type 2 diabetes mellitus with other circulatory complications; Z86.16 Personal history of COVID-19; I87.2 Venous insufficiency (chronic) (peripheral); I89.0 Lymphedema, not elsewhere classified; E78.5 Hyperlipidemia, unspecified; Z87.891 Personal history of nicotine dependence; M79.89 Other specified soft tissue disorders; Z86.718 Personal history of other venous thrombosis and embolism; Z79.899 Other long term (current) drug therapy; Z79.01 Long term (current) use of anticoagulants; Z79.890 Hormone replacement therapy
CPT/HCPCS: 11042; 11045; 99213; G0463

== ENCOUNTER 2022-09-18 13:45 | Outpatient (RCR) | payer MEDICARE, MEDICAID, SELFPAY ==
[2022-08-19 00:37] VITALS: TEMP 36.2; BMI 50.7
[2022-08-21 10:46] VITALS: BMI 50.7
--- NOTE | 2022-08-21 19:24 | PCM.WC.PN ---
History of Present Illness Date of Service: 08/21/22 Chief Complaint: LLE wounds, bilateral lower extremity swelling History of Wound: Patient has been treated at the [facility] in the past for similar wounds, most recently February 2022. She is also known to me from the vascular surgery clinic where we evaluated her for BLE DVT and venous insufficiency. Patient was started on Eliquis for the provoked DVTs. Consistent measured compression was initiated as she had not previously worn compression between wound episodes. At that time, we did also discuss that should wounds recur, could consider GSV ablation. Patient's medical history is also significant for CHF, COPD, T2DM, lymphedema. She reports that she has not been taking her furosemide at all for a few weeks as she lost this month's supply. She states she has been wearing the compression stockings but feels her swelling has been worse over the last couple of weeks and then these blisters appeared, ruptured, and turned into the superficial wounds she presents with today. Subjective Subjective Patient has been doing alright with dressing changes. She reports she does continue to note significant drainage/weeping, but is only needing to change super absorbent dressing once daily. She has been tolerating the compression. She does report some increased erythema and tenderness/pain to the LLE. She denies F/C, N/V, CP, SOB. She is still not taking lasix. Not noticing a significant improvement in BLE swelling with compression alone. Objective Data Objective Data Vital Signs: Vital Signs Temp 97.1 F L 08/19/22 00:37 Weight: 314 lb 6 oz Body Mass Index (BMI) 50.7 Lab / Micro Data Micro: Microbiology 08/21/22 11:00 Wound Abcess - Leg, Left Gram Stain - Final Physical Exam Const alert, oriented x3 and no apparent distress General Appearance: cooperative HEENT normocephalic, head/scalp atraumatic, hearing grossly normal bilaterally, external ears normal and external nose normal Eyes EOMs intact bilaterally General Eye: normal appearance of both eyes Neck full ROM General: normal visual inspection and trachea midline Resp normal respiratory effort, no use of accessory muscles and clear to auscultation bilaterally Effort and Inspection: able to speak in complete sentences and symmetric chest movement; Negative for labored, stridor or audible wheezes Auscultation: clear to auscultation bilaterally and diminished lung sounds Cardio regular rate and regular rhythm Peripheral Pulses: brachial pulses present and radial pulses present Extremity Extremity Narrative: Significant bilateral lower extremity edema. Normal capillary refill. Skin Skin Narrative: Bilateral venous stasis dermatitis, scattered fluid-filled blisters. Wounds: wounds noted Wound Narrative: Cluster of superficial wounds on lateral and medial aspect of left lower leg. Irregularly shaped, some maceration of periwound skin. Significant amount of serous drainage noted. No new wounds. LLE erythematous and warmer compared to RLE, increased tenderness to palpation in LLE. Neuro oriented x3, CN's II-XII intact bilaterally, moves all extremities and no focal motor deficits Coordination / Balance: tandem gait normal Psych mental status grossly normal Appearance: grossly normal Attitude: calm and engaged Activity / Motor Behavior: appropriate eye contact Speech: normal speech Mood & Affect: euthymic mood Attention / Concentration: attention grossly intact Memory / Cognition: memory grossly intact Debridement Note Debridement Note Wound debrided: Left lateral lower leg cluster Laterality: Left Type of Debridement: Excisional debridement Anesthesia Used: 5% Lidocaine Gel Depth: Down to and including healthy tissue Percentage of wound debrided: 100 Instrument Used: 5mm curette Tissue Removed: slough, devitalized tissue Severity: Limited To Skin Breakdown Amount of bleeding with debridement: Mild Bleeding Controlled with: Pressure Patient tolerated procedure: Patient tolerated procedure well Post-Debridement Measurements and Additional Note: Post-Debridement Measurements/Treatment - Nurse 1 - General Ulcer Assessment Start: 08/21/22 10:46 Freq: Status: Active Protocol: WC.LOWEXT Activity Type Activity Date Activity User E-sign Co-sign Detail Recorded Client Recorded Date Recorded By Document 08/21/22 10:46 GLENN [id number] 08/21/22 10:49 GLENN 08/21/22 10:46 - Today's Visit Information Type of service Follow-up Visit (Physician/HISTOLOGY TECHNOLOGIST ) Arrival Mode Ambulatory Patient Identification Verified (Name & Yes ) Patient Requires Transmission-Based No Precautions Safety Precautions NA Height and Weight Body Mass Index (BMI) 50.7 BMI Classification Obese History Since Last Visit- (Skip if this is Patient's initial visit) Have you changed medications since your No last visit? Any new allergies or adverse reactions No Had a fall/change in ADL's that may No increase risk of falls Signs or symptoms of abuse and/or No neglect since last visit Have you been in the hospital since your Yes last visit? Has dressing in place as prescribed No Has compression in place as prescribed N/A Has offloadiing in place as prescribed N/A Experienced any changes in pain level or No management Left Footwear Regular Shoe Right Footwear Regular Shoe Pain Scale: 0-10 Numeric Is Patient Pain Free? Yes WC - Nurse 1 - General Ulcer Measurement Start: 08/21/22 10:46 Freq: Status: Active Protocol: Activity Type Activity Date Activity User E-sign Co-sign Detail Recorded Client Recorded Date Recorded By Document 08/21/22 10:46 GLENN [id number] 08/21/22 10:49 GLENN 08/21/22 10:46 Wound Center Nurse 1 L lateral leg cluster -Combined with other wound No -Current Size (cm) - Length 5 -Current Size (cm) - Width 3 -Current Size (cm) - Depth 0.1 -Total Square Cm 15 -Photo Taken Yes -Tunneling No -Undermining/Tunneling No -Circular Undermining No -Change in Wound Grade/Stage No -Exudate Amt Medium -Exudate Type Serosanguineous -Wound Margin Distinct, Outline Attached -Granulation Amt None Present (0 %) -Granulation Quality N/A -Slough/Fibrin No -Necrosis Amt None Present (0 %) -Structure Exposed N/A -Texture (Adrianna-wound Skin Appearance) No Abnormality, Assessed -Moisture (Adrianna-wound Skin Appearance) Assessed,Dry/ Scaly -Color (Adrianna-wound Skin Appearance) No Abnormality, Assessed -Temperature (Adrianna-wound Skin No Abnormality Appearance) (Pt Warm) -Tenderness on Palpation (Adrianna-wound No Skin Appearance) -Ulcer Cleansing Rinsed/ Irrigated with Saline -Foul Odor after Cleansing No #4 L medial LE cluster -Combined with other wound No -Current Size (cm) - Length 0.2 -Current Size (cm) - Width 0.2 -Current Size (cm) - Depth 0.1 -Total Square Cm 0.04 -Photo Taken Yes -Tunneling No -Undermining/Tunneling No -Circular Undermining No -Change in Wound Grade/Stage No -Exudate Amt Small -Exudate Type Serosanguineous -Wound Margin Distinct, Outline Attached -Granulation Amt Small (1-33%) -Granulation Quality N/A -Slough/Fibrin No -Necrosis Amt None Present (0 %) -Structure Exposed N/A -Texture (Adrianna-wound Skin Appearance) No Abnormality, Assessed -Moisture (Adrianna-wound Skin Appearance) Assessed, Maceration -Color (Adrianna-wound Skin Appearance) No Abnormality, Assessed -Temperature (Adrianna-wound Skin No Abnormality Appearance) (Pt Warm) -Tenderness on Palpation (Adrianna-wound No Skin Appearance) -Ulcer Cleansing Rinsed/ Irrigated with Saline -Foul Odor after Cleansing No -Anesthetic Used 5% Lidocaine Gel Right Calf (cm) 53 Right Ankle (cm) 30 Left Calf (cm) 52.5 Left Ankle (cm) 28.5 WC - Nurse 2 - General Ulcer CM Notes Start: 08/21/22 10:46 Freq: Status: Active Protocol: Activity Type Activity Date Activity User E-sign Co-sign Detail Recorded Client Recorded Date Recorded By Document 08/21/22 12:40 PL [id number] 08/21/22 12:42 PL 08/21/22 12:40 Wound Center Nurse 2 L lateral leg cluster -Time 10:55 -Correct Patient Yes -Correct Side, Site, Position Yes -Correct Procedure Yes -Procedure Performed Yes -Type of Procedure Debridement -Clinical Debridement Subcutaneous -Tissue Removed Epidermis, Dermis, Subcutaneous -Post Debridement (cm) - Length 5.0 -Post Debridement (cm) - Width 3.0 -Post Debridement (cm) - Depth 0.1 -Total Square (Post) (cm) 15.00 -Area of Debridement (cm) - Length 5.0 -Area of Debridement (cm) - Width 3.0 -Total Square (Area) (cm) 15.00 -Tunneling No -Undermining/Tunneling No -Circular Undermining No -Wound/Ulcer Outcome Not Healed -Ulcer Cleansing Rinsed/ Irrigated with Saline -Foul Odor after Cleansing No -Bioengineered Tissue No -Bleeding Controlled with Pressure -Treatment Response Procedure Tolerated Well -Debridement - Subq, 1st 20sq cm No #4 L medial LE cluster -Time 10:55 -Correct Patient Yes -Correct Side, Site, Position Yes -Correct Procedure Yes -Procedure Performed Yes -Type of Procedure Debridement -Clinical Debridement Subcutaneous -Tissue Removed Subcutaneous -Post Debridement (cm) - Length 0.2 -Post Debridement (cm) - Width 0.2 -Post Debridement (cm) - Depth 0.1 -Total Square (Post) (cm) 0.04 -Area of Debridement (cm) - Length 0.2 -Area of Debridement (cm) - Width 0.2 -Total Square (Area) (cm) 0.04 -Tunneling No -Undermining/Tunneling No -Circular Undermining No -Wound/Ulcer Outcome Not Healed -Ulcer Cleansing Rinsed/ Irrigated with Saline -Foul Odor after Cleansing No -Bioengineered Tissue No -Debridement - Subq, 1st 20sq cm Yes Pain Scale: 0-10 Numeric Is Patient Pain Free? Yes - Nurse 3 - General Ulcer D/C NN Start: 08/21/22 10:46 Freq: Status: Active Protocol: Activity Type Activity Date Activity User E-sign Co-sign Detail Recorded Client Recorded Date Recorded By Document 08/21/22 11:29 CO [id number] 08/21/22 11:34 CO 08/21/22 11:29 Wound Care Center Nurse 3 #4 L medial LE cluster -Ulcer Cleansing Rinsed/ Irrigated with Saline -Primary Dressing Applied Optilok 8x12 -Other Dressing kerlix -Primary Dressing Covered/Secured with Dry Gauze, Secured with Tape -Optilok 8x12 1 Right -Tubular Bandage Double Layer -Size of Tubigrip Used Size F -Size F ($) 2 Left -Tubular Bandage Double Layer -Size of Tubigrip Used Size F -Size F ($) 2 Pain Scale: 0-10 Numeric Is Patient Pain Free? Yes - Visit Discharge Discharge Condition Stable Ambulatory Status Steady Transportation Private Auto Medication Reconcilliation completed & No provided to patient/care provider Clinical Summary of Care Provided Yes Notes: pt and verbalized understanding how to change dressing. I demonstrated how to properly place tubigribs on. pt and verbalized understanding how to put tubigribs on. Additional Wound Wound debrided: Left medial lower leg cluster Laterality: Left Type of Debridement: Excisional debridement Anesthesia Used: 5% Lidocaine Gel Depth: Down to and including healthy tissue Percentage of wound debrided: 100 Instrument Used: 5mm curette Tissue Removed: slough, devitalized tissue Severity: Limited To Skin Breakdown Amount of bleeding with debridement: Mild Bleeding Controlled with: Pressure Patient tolerated procedure: Patient tolerated procedure well Assessment/Plan Assessment/Plan (1) Non-pressure chronic ulcer left lower leg, limited to breakdown skin: CODE(S): L97.921 - Non-pressure chronic ulcer of unspecified part of left lower leg limited to breakdown of skin (2) DVT, bilateral lower limbs: CODE(S): I82.403 - Acute embolism and thrombosis of unspecified deep veins of lower extremity, bilateral QUALIFIERS: Affected thrombotic vein of extremity: popliteal Chronicity: acute Qualified Code(s): I82.433 - Acute embolism and thrombosis of popliteal vein, bilateral (3) Lymphedema: CODE(S): I89.0 - Lymphedema, not elsewhere classified (4) Edema of both lower extremities: CODE(S): R60.0 - Localized edema PLAN: Plan Patient presents with superficial wound clusters to lateral and medial aspect left lower leg which appears secondary to her significant lower extremity swelling. Bilateral lower extremity edema seems to be multi-factorial with CHF, lymphedema, venous insufficiency, and post-thrombotic effects. Continue primary dressing of fibracol, wrap in kerlix. Change dressing at least once daily, more often as needed to keep clean and dry. Do not submerge wounds in water. Patient BLE edema does not seem significantly improved with current compression. Will apply double tubigrip to increase compression. I think taking lasix as prescribed will be important in decreasing LE edema as well. Also advised her to elevate her legs when resting. LLE was erythematous, warm, and tender to palpation. Wound cultures were obtained. Empirically prescribed keflex 500mg every 6 hours x 7 days, will adjust as indicated by C&S. Did discuss patient's penicillin allergy -- she reports she has had penicillin IM in the past which she has tolerated without issue, oral penicillin/amoxicillin upsets her stomach. She will call if she experiences any adverse effects. We discussed the importance of good blood sugar control, increase protein in diet. Patient will return to [facility] in 1 week or sooner as needed.
[2022-08-28 12:18] VITALS: BP 163/99; PULSE 71; TEMP 35.6; BMI 50.7
--- NOTE | 2022-08-28 15:55 | PCM.WC.PN ---
History of Present Illness Date of Service: 08/28/22 Chief Complaint: LLE wounds, bilateral lower extremity swelling History of Wound: Patient has been treated at the [facility] in the past for similar wounds, most recently February 2022. She is also known to me from the vascular surgery clinic where we evaluated her for BLE DVT and venous insufficiency. Patient was started on Eliquis for the provoked DVTs. Consistent measured compression was initiated as she had not previously worn compression between wound episodes. At that time, we did also discuss that should wounds recur, could consider GSV ablation. Patient's medical history is also significant for CHF, COPD, T2DM, lymphedema. She reports that she has not been taking her furosemide at all for a few weeks as she lost this month's supply. She states she has been wearing the compression stockings but feels her swelling has been worse over the last couple of weeks and then these blisters appeared, ruptured, and turned into the superficial wounds she presents with today. Subjective Subjective Patient continues to have erythema and tenderness of LLE. She has not been taking the Bactrim I prescribed. She states the pharmacy did not have the Rx when she went to pick it up this past Wednesday. Denies F/C, N/V. She reports that her feet often feel cold and sometimes turn blue-norma purple, often at night. This has been happening for a long time, not just since starting compression. It comes and goes, no associated pain. Dressing changes have not been going as directed at home, using other supplies than those directed. Seems like she is struggling with this. Objective Data Objective Data Vital Signs: Vital Signs Temp Pulse BP 96.1 F L 71 163/99 H 08/28/22 12:18 08/28/22 12:18 08/28/22 12:18 Weight: 314 lb 6 oz Body Mass Index (BMI) 50.7 Lab / Micro Data Micro: Microbiology 08/21/22 11:00 Wound Abcess - Leg, Left Gram Stain - Final 08/21/22 11:00 Wound Abcess - Leg, Left Wound Culture - Final Serratia marcescens Meth. resistant Staph. aureus 08/21/22 11:00 Wound Abcess - Leg, Left Anaerobic Culture - Final No anaerobic bacteria isolated. Charges/Coding Visit Charges Office Visits / Consults: [id number] OV L1 Est Physical Exam Const alert, oriented x3 and no apparent distress General Appearance: cooperative HEENT normocephalic, head/scalp atraumatic, hearing grossly normal bilaterally, external ears normal and external nose normal Eyes EOMs intact bilaterally General Eye: normal appearance of both eyes Neck full ROM General: normal visual inspection and trachea midline Resp normal respiratory effort, no use of accessory muscles and clear to auscultation bilaterally Effort and Inspection: able to speak in complete sentences and symmetric chest movement; Negative for labored, stridor or audible wheezes Auscultation: clear to auscultation bilaterally and diminished lung sounds Cardio regular rate and regular rhythm Peripheral Pulses: brachial pulses present and radial pulses present Extremity Extremity Narrative: Significant bilateral lower extremity edema. Normal capillary refill. Skin Skin Narrative: Bilateral venous stasis dermatitis, scattered fluid-filled blisters. Wounds: wounds noted Wound Narrative: Cluster of superficial wounds on lateral and medial aspect of left lower leg. Irregularly shaped, some maceration of periwound skin. Significant amount of serous drainage noted. No new wounds. LLE erythematous and warmer compared to RLE, increased tenderness to palpation in LLE. Neuro oriented x3, CN's II-XII intact bilaterally, moves all extremities and no focal motor deficits Coordination / Balance: tandem gait normal Psych mental status grossly normal Appearance: grossly normal Attitude: calm and engaged Activity / Motor Behavior: appropriate eye contact Speech: normal speech Mood & Affect: euthymic mood Attention / Concentration: attention grossly intact Memory / Cognition: memory grossly intact Debridement Note Debridement Note Wound debrided: Left lateral lower leg cluster Severity: Limited To Skin Breakdown No debridement was completed: No debridement was completed today Post-Debridement Measurements and Additional Note: Post-Debridement Measurements/Treatment - Nurse 1 - General Ulcer Assessment Start: 08/21/22 10:46 Freq: Status: Active Protocol: [email or web address] Activity Type Activity Date Activity User E-sign Co-sign Detail Recorded Client Recorded Date Recorded By Document 08/21/22 10:46 GLENN [id number] 08/21/22 10:49 AK Document 08/28/22 12:18 AK [id number] 08/28/22 12:22 AK 08/21/22 08/28/22 10:46 12:18 - Today's Visit Information Type of service Follow-up Visit Follow-up Visit (Physician/[facility] [employer] (Physician/[facility] [employer] [facility] ) ) Arrival Mode Ambulatory Ambulatory Patient Identification Verified (Name & Yes Yes ) Patient Requires Transmission-Based No No Precautions Safety Precautions NA NA Height and Weight Body Mass Index (BMI) 50.7 50.7 BMI Classification Obese Obese Vital Signs Temperature (97.8 F-99.1 F) 96.1 F L Temperature Source Temporal Pulse Rate (60-100) 71 Pulse Location Monitor Blood Pressure (90/60-120/80) 163/99 H Blood Pressure Mean (mm Hg) 120 Source Monitor History Since Last Visit- (Skip if this is Patient's initial visit) Have you changed medications since your No No last visit? Any new allergies or adverse reactions No No Had a fall/change in ADL's that may No No increase risk of falls Signs or symptoms of abuse and/or No No neglect since last visit Have you been in the hospital since your Yes No last visit? Has dressing in place as prescribed No Yes Has compression in place as prescribed N/A Yes Has offloadiing in place as prescribed N/A N/A Experienced any changes in pain level or No No management Left Footwear Regular Shoe Regular Shoe Right Footwear Regular Shoe Regular Shoe Pain Scale: 0-10 Numeric Is Patient Pain Free? Yes No WC - Nurse 1 - General Ulcer Measurement Start: 08/21/22 10:46 Freq: Status: Active Protocol: Activity Type Activity Date Activity User E-sign Co-sign Detail Recorded Client Recorded Date Recorded By Document 08/21/22 10:46 IA [id number] 08/21/22 10:49 AK Document 08/28/22 12:18 AK [id number] 08/28/22 12:22 AK 08/21/22 08/28/22 10:46 12:18 Wound Center Nurse 1 L lateral leg cluster -Combined with other wound No No -Current Size (cm) - Length 5 4 -Current Size (cm) - Width 3 5 -Current Size (cm) - Depth 0.1 -Total Square Cm 15 20 -Photo Taken Yes Yes -Tunneling No No -Undermining/Tunneling No No -Circular Undermining No No -Change in Wound Grade/Stage No No -Exudate Amt Medium Large -Exudate Type Serosanguineous Purulent -Wound Margin Distinct, Outline Attached -Granulation Amt None Present (0 None Present (0 %) %) -Granulation Quality N/A N/A -Slough/Fibrin No No -Necrosis Amt None Present (0 None Present (0 %) %) -Structure Exposed N/A N/A -Texture (Adrianna-wound Skin Appearance) No Abnormality, No Abnormality, Assessed Assessed -Moisture (Adrianna-wound Skin Appearance) Assessed,Dry/ Assessed, Scaly Weeping -Color (Adrianna-wound Skin Appearance) No Abnormality, No Abnormality, Assessed Assessed -Temperature (Adrianna-wound Skin No Abnormality No Abnormality Appearance) (Pt Warm) (Pt Warm) -Tenderness on Palpation (Adrianna-wound No No Skin Appearance) -Ulcer Cleansing Rinsed/ Soap and Water Irrigated with Saline -Foul Odor after Cleansing No No #4 L medial LE cluster -Combined with other wound No -Current Size (cm) - Length 0.2 -Current Size (cm) - Width 0.2 -Current Size (cm) - Depth 0.1 -Total Square Cm 0.04 -Photo Taken Yes -Tunneling No -Undermining/Tunneling No -Circular Undermining No -Change in Wound Grade/Stage No -Exudate Amt Small -Exudate Type Serosanguineous -Wound Margin Distinct, Outline Attached -Granulation Amt Small (1-33%) -Granulation Quality N/A -Slough/Fibrin No -Necrosis Amt None Present (0 %) -Structure Exposed N/A -Texture (Adrianna-wound Skin Appearance) No Abnormality, Assessed -Moisture (Adrianna-wound Skin Appearance) Assessed, Maceration -Color (Adrianna-wound Skin Appearance) No Abnormality, Assessed -Temperature (Adrianna-wound Skin No Abnormality Appearance) (Pt Warm) -Tenderness on Palpation (Adrianna-wound No Skin Appearance) -Ulcer Cleansing Rinsed/ Irrigated with Saline -Foul Odor after Cleansing No -Anesthetic Used 5% Lidocaine Gel Lower Limb Edema Present No Right Calf (cm) 53 Right Ankle (cm) 30 Left Calf (cm) 52.5 56 Left Ankle (cm) 28.5 29 WC - Nurse 2 - General Ulcer CM Notes Start: 08/21/22 10:46 Freq: Status: Active Protocol: Activity Type Activity Date Activity User E-sign Co-sign Detail Recorded Client Recorded Date Recorded By Document 08/21/22 12:40 PL [id number] 08/21/22 12:42 PL 08/21/22 12:40 Wound Center Nurse 2 L lateral leg cluster -Time 10:55 -Correct Patient Yes -Correct Side, Site, Position Yes -Correct Procedure Yes -Procedure Performed Yes -Type of Procedure Debridement -Clinical Debridement Subcutaneous -Tissue Removed Epidermis, Dermis, Subcutaneous -Post Debridement (cm) - Length 5.0 -Post Debridement (cm) - Width 3.0 -Post Debridement (cm) - Depth 0.1 -Total Square (Post) (cm) 15.00 -Area of Debridement (cm) - Length 5.0 -Area of Debridement (cm) - Width 3.0 -Total Square (Area) (cm) 15.00 -Tunneling No -Undermining/Tunneling No -Circular Undermining No -Wound/Ulcer Outcome Not Healed -Ulcer Cleansing Rinsed/ Irrigated with Saline -Foul Odor after Cleansing No -Bioengineered Tissue No -Bleeding Controlled with Pressure -Treatment Response Procedure Tolerated Well -Debridement - Subq, 1st 20sq cm No #4 L medial LE cluster -Time 10:55 -Correct Patient Yes -Correct Side, Site, Position Yes -Correct Procedure Yes -Procedure Performed Yes -Type of Procedure Debridement -Clinical Debridement Subcutaneous -Tissue Removed Subcutaneous -Post Debridement (cm) - Length 0.2 -Post Debridement (cm) - Width 0.2 -Post Debridement (cm) - Depth 0.1 -Total Square (Post) (cm) 0.04 -Area of Debridement (cm) - Length 0.2 -Area of Debridement (cm) - Width 0.2 -Total Square (Area) (cm) 0.04 -Tunneling No -Undermining/Tunneling No -Circular Undermining No -Wound/Ulcer Outcome Not Healed -Ulcer Cleansing Rinsed/ Irrigated with Saline -Foul Odor after Cleansing No -Bioengineered Tissue No -Debridement - Subq, 1st 20sq cm Yes Pain Scale: 0-10 Numeric Is Patient Pain Free? Yes WC - Nurse 3 - General Ulcer D/C NN Start: 08/21/22 10:46 Freq: Status: Active Protocol: Activity Type Activity Date Activity User E-sign Co-sign Detail Recorded Client Recorded Date Recorded By Document 08/21/22 11:29 MT [id number] 08/21/22 11:34 MT Document 08/28/22 12:18 AK [id number] 08/28/22 12:22 AK 08/21/22 08/28/22 11:29 12:18 Wound Care Center Nurse 3 L lateral leg cluster -Ulcer Cleansing Rinsed/ Irrigated with Saline -Foul Odor after Cleansing No -Negative Pressure Wound Therapy N/A -Primary Dressing Applied Optilok 8x12 -Optilok 8x12 1 #4 L medial LE cluster -Ulcer Cleansing Rinsed/ Irrigated with Saline -Primary Dressing Applied Optilok 8x12 -Other Dressing kerlix -Primary Dressing Covered/Secured with Dry Gauze, Secured with Tape -Optilok 8x12 1 luke -Lotion applied to leg before Yes compression wrap -Multi-Layered Wrap Application Multi-Layer Comp - Bilat ($ ) Right -Tubular Bandage Double Layer -Size of Tubigrip Used Size F -Size F ($) 2 Left -Tubular Bandage Double Layer -Size of Tubigrip Used Size F -Size F ($) 2 Vital Signs Temperature (97.8 F-99.1 F) 96.1 F L Temperature Source Temporal Pulse Rate (60-100) 71 Pulse Location Monitor Blood Pressure (90/60-120/80) 163/99 H Blood Pressure Mean (mm Hg) 120 Source Monitor Pain Scale: 0-10 Numeric Is Patient Pain Free? Yes No WC - Visit Discharge Discharge Condition Stable Stable Ambulatory Status Steady Ambulatory Transportation Private Auto Private Auto Accompanied by Medication Reconcilliation completed & No Yes provided to patient/care provider Clinical Summary of Care Provided Yes Yes Notes: pt and verbalized understanding how to change dressing. I demonstrated how to properly place tubigribs on. pt and verbalized understanding how to put tubigribs on. Additional Wound Wound debrided: Left medial lower leg cluster Severity: Limited To Skin Breakdown Assessment/Plan Assessment/Plan (1) Non-pressure chronic ulcer left lower leg, limited to breakdown skin: CODE(S): L97.921 - Non-pressure chronic ulcer of unspecified part of left lower leg limited to breakdown of skin (2) DVT, bilateral lower limbs: CODE(S): I82.403 - Acute embolism and thrombosis of unspecified deep veins of lower extremity, bilateral QUALIFIERS: Affected thrombotic vein of extremity: popliteal Chronicity: acute Qualified Code(s): I82.433 - Acute embolism and thrombosis of popliteal vein, bilateral (3) Lymphedema: CODE(S): I89.0 - Lymphedema, not elsewhere classified (4) Edema of both lower extremities: CODE(S): R60.0 - Localized edema PLAN: Plan Patient presents with superficial wound clusters to lateral and medial aspect left lower leg which appears secondary to her significant lower extremity swelling. Bilateral lower extremity edema seems to be multi-factorial with CHF, lymphedema, venous insufficiency, and post-thrombotic effects. Patient is having trouble with dressing changes at home. Will continue fibracol but switch to 3M wrap. This will also provide adequate compression. Patient will come into clinic next Wednesday for nurse visit to have dressing changed. Advised patient to continue to elevate her legs when resting. Encouraged her to reach out to PCP about Lasix which would also likely help with her swelling. We also send a note to PCP's office regarding this on patient's behalf today. LLE continues to be erythematous, warm, and tender to palpation but stable from last week. Wound cultures showed serratia marcescens and MRSA. Switched her to Bactrim DS BID x14 days. She reports this was not at her pharmacy when she tried to pick it up. I called pharmacy and they said she filled in this past Wednesday along with many other medications. I asked her to check at home and see if it got lost among her other medications. If she does not find it, sent in new Rx for her to [facility] operator. Ask that she call and let us know if she has trouble. Would like her to start this as soon as possible. We discussed the importance of good blood sugar control, increase protein in diet. Patient will return to [facility] in 1 week or sooner as needed.
[2022-09-01 13:59] VITALS: BP 110/80; PULSE 76; RESP 24; TEMP 36.3; BMI 50.7
[2022-09-04 11:23] VITALS: BP 154/49; PULSE 82; RESP 18; TEMP 36.1; BMI 50.7
--- NOTE | 2022-09-04 12:08 | PN.PCM_ITS ---
History of Present Illness Date of Service: 09/04/22 Chief Complaint: LLE wounds, bilateral lower extremity swelling History of Wound: Patient has been treated at the [facility] in the past for similar wounds, most recently February 2022. She is also known to me from the vascular surgery clinic where we evaluated her for BLE DVT and venous insufficiency. Patient was started on Eliquis for the provoked DVTs. Consistent measured compression was initiated as she had not previously worn compression between w ound episodes. At that time, we did also discuss that should wounds recur, could consider GSV ablation. Patient's medical history is also significant for CHF, COPD, T2DM, lymphedema. She reports that she has not been taking her furosemide at all for a few weeks as she lost this month's supply. She states she has been wearing the compression stockings but feels her swelling has been worse over the last couple of weeks and then these blisters appeared, ruptured, and turned into the superficial wounds she presents with today. Subjective Subjective Patient did very well with 3M wraps this week, feels swelling is somewhat improved. She was able to start the Bactrim I had prescribed and has been taking it without issue. She does have an appt with her PCP today to discuss lasix. She denies new/worsening pain, F/C, N/V, worsened erythema, weeping. The superficial wounds she had have healed, LLE with overall improved appearance. Objective Data Objective Data Vital Signs: Vital Signs Temp Pulse Resp BP O2 Del Method 97 F L 82 18 154/49 H Room Air 09/04/22 11:23 09/04/22 11:23 09/04/22 11:23 09/04/22 11:23 09/04/22 11:23 Oxygen Delivery Method Room Air Weight: 314 lb 6 oz Body Mass Index (BMI) 50.7 Lab / Micro Data Micro: Microbiology 08/21/22 11:00 Wound Abcess - Leg, Left Gram Stain - Final 08/21/22 11:00 Wound Abcess - Leg, Left Wound Culture - Final Serratia marcescens Meth. resistant Staph. aureus 08/21/22 11:00 Wound Abcess - Leg, Left Anaerobic Culture - Final No anaerobic bacteria isolated. Charges/Coding Visit Charges Office Visits / Consults: [id number] OV L1 Est Physical Exam Const alert, oriented x3 and no apparent distress General Appearance: cooperative HEENT normocephalic, head/scalp atraumatic, hearing grossly normal bilaterally, external ears normal and external nose normal Eyes EOMs intact bilaterally General Eye: normal appearance of both eyes Neck full ROM General: normal visual inspection and trachea midline Resp normal respiratory effort, no use of accessory muscles and clear to auscultation bilaterally Effort and Inspection: able to speak in complete sentences and symmetric chest movement; Negative for labored, stridor or audible wheezes Auscultation: clear to auscultation bilaterally and diminished lung sounds Cardio regular rate and regular rhythm Peripheral Pulses: brachial pulses present and radial pulses present Extremity Extremity Narrative: Significant bilateral lower extremity edema. Normal capillary refill. Skin Skin Narrative: Bilateral venous stasis dermatitis, scattered fluid-filled blisters. Wounds: wounds noted Wound Narrative: Cluster of superficial wounds on lateral and medial aspect of left lower leg. Irregularly shaped, some maceration of periwound skin. Significant amount of serous drainage noted. No new wounds. LLE erythematous and warmer compared to RLE, increased tenderness to palpation in LLE. Neuro oriented x3, CN's II-XII intact bilaterally, moves all extremities and no focal motor deficits Coordination / Balance: tandem gait normal Psych mental status grossly normal Appearance: grossly normal Attitude: calm and engaged Activity / Motor Behavior: appropriate eye contact Speech: normal speech Mood & Affect: euthymic mood Attention / Concentration: attention grossly intact Memory / Cognition: memory grossly intact Debridement Note Debridement Note Wound debrided: LLE wounds healed No debridement was completed: No debridement was completed today Post-Debridement Measurements and Additional Note: Post-Debridement Measurements/Treatment [id number] - Nurse 1 - General Ulcer Assessment Start: 08/21/22 10:46 Freq: Status: Active Protocol: KELSEY Activity Type Activity Date Activity User E-sign Co-sign Detail Recorded Client Recorded Date Recorded By Document 08/21/22 10:46 AK [id number] 08/21/22 10:49 AK Document 08/28/22 12:18 AK [id number] 08/28/22 12:22 AK Document 09/01/22 13:59 DL [id number] 09/01/22 14:09 DL Document 09/04/22 11:23 W[place] [id number] 09/04/22 11:43 [place] 08/21/22 08/28/22 09/01/22 10:46 12:18 13:59 [facility] Today's Visit Information Type of service Follow-up Visit Follow-up Visit Nurse-only (Physician/ADVERTISING COPYWRITER (Physician/ADVERTISING COPYWRITER Visit ) ) Arrival Mode Ambulatory Ambulatory Ambulatory Transfer Assistance None Accompanied by Patient Identification Verified (Name & Yes Yes Yes ) Patient Requires Transmission-Based No No No Precautions Safety Precautions NA NA Height and Weight Body Mass Index (BMI) 50.7 50.7 50.7 BMI Classification Obese Obese Obese Vital Signs Temperature (97.8 F-99.1 F) 96.1 F L 97.4 F L Temperature Source Temporal Temporal Pulse Rate (60-100) 71 76 Pulse Location Monitor Monitor Respiratory Rate (12-18) 24 H Respiratory rate source Observation Oxygen Delivery Method Blood Pressure (90/60-120/80) 163/99 H 110/80 Blood Pressure Mean (mm Hg) 120 90 Source Monitor Monitor Position Blood Pressure Location History Since Last Visit- (Skip if this is Patient's initial visit) Have you changed medications since your No No No last visit? Any new allergies or adverse reactions No No No Had a fall/change in ADL's that may No No No increase risk of falls Signs or symptoms of abuse and/or No No No neglect since last visit Have you been in the hospital since your Yes No No last visit? Has dressing in place as prescribed No Yes No Has compression in place as prescribed N/A Yes Yes Has offloadiing in place as prescribed N/A N/A N/A Experienced any changes in pain level or No No Yes management Left Footwear Regular Shoe Regular Shoe Right Footwear Regular Shoe Regular Shoe Pain Scale: 0-10 Numeric Is Patient Pain Free? Yes No Yes 09/04/22 11:23 [facility] Today's Visit Information Type of service Follow-up Visit (Physician/ADVERTISING COPYWRITER ) Arrival Mode Ambulatory Transfer Assistance Accompanied by Patient Identification Verified (Name & Yes ) Patient Requires Transmission-Based Precautions Safety Precautions Fall Prevention Height and Weight Body Mass Index (BMI) 50.7 BMI Classification Obese Vital Signs Temperature (97.8 F-99.1 F) 97 F L Temperature Source Temporal Pulse Rate (60-100) 82 Pulse Location Monitor Respiratory Rate (12-18) 18 Respiratory rate source Observation Oxygen Delivery Method Room Air Blood Pressure (90/60-120/80) 154/49 H Blood Pressure Mean (mm Hg) 84 Source Monitor Position Sitting Blood Pressure Location Left Arm History Since Last Visit- (Skip if this is Patient's initial visit) Have you changed medications since your last visit? Any new allergies or adverse reactions Had a fall/change in ADL's that may increase risk of falls Signs or symptoms of abuse and/or neglect since last visit Have you been in the hospital since your last visit? Has dressing in place as prescribed Yes Has compression in place as prescribed Yes Has offloadiing in place as prescribed Yes Experienced any changes in pain level or Yes management Left Footwear Regular Shoe Right Footwear Regular Shoe Pain Scale: 0-10 Numeric Is Patient Pain Free? Yes WC - Nurse 1 - General Ulcer Measurement Start: 08/21/22 10:46 Freq: Status: Active Protocol: Activity Type Activity Date Activity User E-sign Co-sign Detail Recorded Client Recorded Date Recorded By Document 08/21/22 10:46 AK [id number] 08/21/22 10:49 AK Document 08/28/22 12:18 AK [id number] 08/28/22 12:22 AK Document 09/01/22 13:59 DL [id number] 09/01/22 14:09 DL Document 09/04/22 11:23 MT [id number] 09/04/22 11:43 MT 08/21/22 08/28/22 09/01/22 10:46 12:18 13:59 Wound Center Nurse 1 L lateral leg cluster -Combined with other wound No No -Current Size (cm) - Length 5 4 0.1 -Current Size (cm) - Width 3 5 0.1 -Current Size (cm) - Depth 0.1 0.1 -Total Square Cm 15 20 0.01 -Photo Taken Yes Yes -Tunneling No No -Undermining/Tunneling No No -Circular Undermining No No -Change in Wound Grade/Stage No No -Exudate Amt Medium Large None Present -Exudate Type Serosanguineous Purulent -Wound Margin Distinct, Flat & Intact Outline Attached -Granulation Amt None Present (0 None Present (0 Large (67-100%) %) %) -Granulation Quality N/A N/A [place] -Slough/Fibrin No No -Necrosis Amt None Present (0 None Present (0 None Present (0 %) %) %) -Structure Exposed N/A N/A N/A -Texture (Adrianna-wound Skin Appearance) No Abnormality, No Abnormality, Localized Edema Assessed Assessed -Moisture (Adrianna-wound Skin Appearance) Assessed,Dry/ Assessed, Scaly Weeping -Color (Adrianna-wound Skin Appearance) No Abnormality, No Abnormality, Hemosiderin Assessed Assessed Staining -Temperature (Adrianna-wound Skin No Abnormality No Abnormality No Abnormality Appearance) (Pt Warm) (Pt Warm) (Pt Warm) -Tenderness on Palpation (Adrianna-wound No No No Skin Appearance) -Ulcer Cleansing Rinsed/ Soap and Water Soap and Water Irrigated with Saline -Foul Odor after Cleansing No No No #4 L medial LE cluster -Combined with other wound No -Current Size (cm) - Length 0.2 0.1 -Current Size (cm) - Width 0.2 0.1 -Current Size (cm) - Depth 0.1 0.1 -Total Square Cm 0.04 0.01 -Photo Taken Yes -Tunneling No -Undermining/Tunneling No -Circular Undermining No -Change in Wound Grade/Stage No -Exudate Amt Small None Present -Exudate Type Serosanguineous -Wound Margin Distinct, Outline Attached -Granulation Amt Small (1-33%) Large (67-100%) -Granulation Quality N/A [place] -Slough/Fibrin No -Necrosis Amt None Present (0 None Present (0 %) %) -Structure Exposed N/A N/A -Texture (Adrianna-wound Skin Appearance) No Abnormality, Localized Edema Assessed -Moisture (Adrianna-wound Skin Appearance) Assessed, No Abnormality Maceration -Color (Adrianna-wound Skin Appearance) No Abnormality, Hemosiderin Assessed Staining -Temperature (Adrianna-wound Skin No Abnormality No Abnormality Appearance) (Pt Warm) (Pt Warm) -Tenderness on Palpation (Adrianna-wound No No Skin Appearance) -Ulcer Cleansing Rinsed/ Soap and Water Irrigated with Saline -Foul Odor after Cleansing No No -Anesthetic Used 5% Lidocaine Gel Lower Limb Edema Present No Right Calf (cm) 53 50 Right Ankle (cm) 30 27.5 Left Calf (cm) 52.5 56 52.8 Left Ankle (cm) 28.5 29 28.5 09/04/22 11:23 Wound Center Nurse 1 L lateral leg cluster -Combined with other wound -Current Size (cm) - Length -Current Size (cm) - Width -Current Size (cm) - Depth -Total Square Cm -Photo Taken -Tunneling -Undermining/Tunneling -Circular Undermining -Change in Wound Grade/Stage -Exudate Amt -Exudate Type -Wound Margin -Granulation Amt -Granulation Quality -Slough/Fibrin -Necrosis Amt -Structure Exposed -Texture (Adrianna-wound Skin Appearance) -Moisture (Adrianna-wound Skin Appearance) -Color (Adrianna-wound Skin Appearance) -Temperature (Adrianna-wound Skin Appearance) -Tenderness on Palpation (Adrianna-wound Skin Appearance) -Ulcer Cleansing -Foul Odor after Cleansing #4 L medial LE cluster -Combined with other wound -Current Size (cm) - Length 0.1 -Current Size (cm) - Width 0.1 -Current Size (cm) - Depth 0.1 -Total Square Cm 0.01 -Photo Taken -Tunneling -Undermining/Tunneling -Circular Undermining -Change in Wound Grade/Stage -Exudate Amt -Exudate Type -Wound Margin -Granulation Amt -Granulation Quality -Slough/Fibrin -Necrosis Amt -Structure Exposed -Texture (Adrainna-wound Skin Appearance) Assessed, Localized Edema -Moisture (Adrianna-wound Skin Appearance) Assessed -Color (Adrianna-wound Skin Appearance) Assessed -Temperature (Adrianna-wound Skin No Abnormality Appearance) (Pt Warm) -Tenderness on Palpation (Adrianna-wound Skin Appearance) -Ulcer Cleansing Wound Cleanser -Foul Odor after Cleansing No -Anesthetic Used Lower Limb Edema Present Right Calf (cm) 48 Right Ankle (cm) 28.5 Left Calf (cm) 49 Left Ankle (cm) 28.5 WC - Nurse 2 - General Ulcer CM Notes Start: 08/21/22 10:46 Freq: Status: Active Protocol: Activity Type Activity Date Activity User E-sign Co-sign Detail Recorded Client Recorded Date Recorded By Document 08/21/22 12:40 PL [id number] 08/21/22 12:42 PL 08/21/22 12:40 Wound Center Nurse 2 L lateral leg cluster -Time 10:55 -Correct Patient Yes -Correct Side, Site, Position Yes -Correct Procedure Yes -Procedure Performed Yes -Type of Procedure Debridement -Clinical Debridement Subcutaneous -Tissue Removed Epidermis, Dermis, Subcutaneous -Post Debridement (cm) - Length 5.0 -Post Debridement (cm) - Width 3.0 -Post Debridement (cm) - Depth 0.1 -Total Square (Post) (cm) 15.00 -Area of Debridement (cm) - Length 5.0 -Area of Debridement (cm) - Width 3.0 -Total Square (Area) (cm) 15.00 -Tunneling No -Undermining/Tunneling No -Circular Undermining No -Wound/Ulcer Outcome Not Healed -Ulcer Cleansing Rinsed/ Irrigated with Saline -Foul Odor after Cleansing No -Bioengineered Tissue No -Bleeding Controlled with Pressure -Treatment Response Procedure Tolerated Well -Debridement - Subq, 1st 20sq cm No #4 L medial LE cluster -Time 10:55 -Correct Patient Yes -Correct Side, Site, Position Yes -Correct Procedure Yes -Procedure Performed Yes -Type of Procedure Debridement -Clinical Debridement Subcutaneous -Tissue Removed Subcutaneous -Post Debridement (cm) - Length 0.2 -Post Debridement (cm) - Width 0.2 -Post Debridement (cm) - Depth 0.1 -Total Square (Post) (cm) 0.04 -Area of Debridement (cm) - Length 0.2 -Area of Debridement (cm) - Width 0.2 -Total Square (Area) (cm) 0.04 -Tunneling No -Undermining/Tunneling No -Circular Undermining No -Wound/Ulcer Outcome Not Healed -Ulcer Cleansing Rinsed/ Irrigated with Saline -Foul Odor after Cleansing No -Bioengineered Tissue No -Debridement - Subq, 1st 20sq cm Yes Pain Scale: 0-10 Numeric Is Patient Pain Free? Yes WC - Nurse 3 - General Ulcer D/C NN Start: 08/21/22 10:46 Freq: Status: Active Protocol: Activity Type Activity Date Activity User E-sign Co-sign Detail Recorded Client Recorded Date Recorded By Document 08/21/22 11:29 MT [id number] 08/21/22 11:34 MT Document 08/28/22 12:18 AK [id number] 08/28/22 12:22 AK Document 09/01/22 13:59 DL [id number] 09/01/22 14:09 DL Document 09/04/22 12:01 WY [id number] 09/04/22 12:02 WY 08/21/22 08/28/22 09/01/22 11:29 12:18 13:59 Wound Care Center Nurse 3 L lateral leg cluster -Ulcer Cleansing Rinsed/ Soap and Water Irrigated with Saline -Foul Odor after Cleansing No -Negative Pressure Wound Therapy N/A -Primary Dressing Applied Optilok 8x12 -Primary Dressing Covered/Secured with -Optilok 8x12 1 #4 L medial LE cluster -Ulcer Cleansing Rinsed/ Irrigated with Saline -Primary Dressing Applied Optilok 8x12 -Other Dressing kerlix -Primary Dressing Covered/Secured with Dry Gauze, Secured with Tape -Optilok 8x12 1 luke -Lotion applied to leg before Yes compression wrap -Multi-Layered Wrap Application Multi-Layer Multi-Layer Comp - Bilat ($ Comp - Bilat ($ ) ) Right -Tubular Bandage Double Layer -Size of Tubigrip Used Size F -Size F ($) 2 Left -Tubular Bandage Double Layer -Size of Tubigrip Used Size F -Size F ($) 2 Treatment Response Procedure Tolerated Well Vital Signs Temperature (97.8 F-99.1 F) 96.1 F L 97.4 F L Temperature Source Temporal Temporal Pulse Rate (60-100) 71 76 Pulse Location Monitor Monitor Respiratory Rate (12-18) 24 H Respiratory rate source Observation Blood Pressure (90/60-120/80) 163/99 H 110/80 Blood Pressure Mean (mm Hg) 120 90 Source Monitor Monitor Pain Scale: 0-10 Numeric Is Patient Pain Free? Yes No Yes WC - Visit Discharge Discharge Condition Stable Stable Stable Ambulatory Status Steady Ambulatory Ambulatory Transportation Private Auto Private Auto Private Auto Accompanied by Medication Reconcilliation completed & No Yes provided to patient/care provider Clinical Summary of Care Provided Yes Yes Notes: pt and Pt arrived for verbalized NV. 3M intact, understanding no drainage how to change noted to LLE. dressing. I Pt states that demonstrated she has more how to properly swelling above place her knees in tubigribs on. the last day or pt and so. Denies any verbalized SOB from understanding swelling, D/T how to put CHF. States tubigribs on. not any worse that normal Checked with CNM, ok to reapply 3M today. Pt instructed to remove compression and go to ER if she gets SOB. Facility Type Home Health Orders Sent Yes 09/04/22 12:01 Wound Care Center Nurse 3 L lateral leg cluster -Ulcer Cleansing lotion -Foul Odor after Cleansing -Negative Pressure Wound Therapy -Primary Dressing Applied -Primary Dressing Covered/Secured with Dry Gauze, Secured with Tape -Optilok 8x12 #4 L medial LE cluster -Ulcer Cleansing -Primary Dressing Applied -Other Dressing -Primary Dressing Covered/Secured with -Optilok 8x12 luke -Lotion applied to leg before compression wrap -Multi-Layered Wrap Application Multi-Layer Comp - Bilat ($ ) Right -Tubular Bandage -Size of Tubigrip Used -Size F ($) Left -Tubular Bandage -Size of Tubigrip Used -Size F ($) Treatment Response Vital Signs Temperature (97.8 F-99.1 F) Temperature Source Pulse Rate (60-100) Pulse Location Respiratory Rate (12-18) Respiratory rate source Blood Pressure (90/60-120/80) Blood Pressure Mean (mm Hg) Source Pain Scale: 0-10 Numeric Is Patient Pain Free? Yes WC - Visit Discharge Discharge Condition Ambulatory Status Transportation Accompanied by Medication Reconcilliation completed & provided to patient/care provider Clinical Summary of Care Provided Notes: Facility Type Orders Sent Assessment/Plan Assessment/Plan (1) Non-pressure chronic ulcer left lower leg, limited to breakdown skin: CODE(S): L97.921 - Non-pressure chronic ulcer of unspecified part of left lower leg limited to breakdown of skin (2) DVT, bilateral lower limbs: CODE(S): I82.403 - Acute embolism and thrombosis of unspecified deep veins of lower extremity, bilateral QUALIFIERS: Affected thrombotic vein of extremity: popliteal Chronicity: acute Qualified Code(s): I82.433 - Acute embolism and thrombosis of popliteal vein, bilateral (3) Lymphedema: CODE(S): I89.0 - Lymphedema, not elsewhere classified (4) Edema of both lower extremities: CODE(S): R60.0 - Localized edema PLAN: Plan Patient's LLE wounds have healed. LLE overall significantly less erythematous and no longer TTP. Bilateral lower extremity edema seems to be multi-factorial with CHF, lym phedema, venous insufficiency, and post-thrombotic effects. Some improvement made with 3M compression. Will continue with 3M wraps with goal of continuing to reduce edema to the point patient can maintain with compression stockings. Consistent, adequate compression indefinitely will be important to preventing wound recurrence. Continue to elevate her legs when resting. Patient will return to [facility] in 1 week or sooner as needed.
[2022-09-08 13:24] VITALS: BP 185/84; PULSE 72; RESP 20; TEMP 35.7; BMI 50.7
[2022-09-11 12:59] VITALS: BP 150/60; RESP 18; TEMP 35.7; BMI 50.7
--- NOTE | 2022-09-11 13:26 | PCM.WC.PN ---
History of Present Illness Date of Service: 09/11/22 Chief Complaint: LLE wounds, bilateral lower extremity swelling History of Wound: Patient has been treated at the [facility] in the past for similar wounds, most recently February 2022. She is also known to me from the vascular surgery clinic where we evaluated her for BLE DVT and venous insufficiency. Patient was started on Eliquis for the provoked DVTs. Consistent measured compression was initiated as she had not previously worn compression between wound episodes. At that time, we did also discuss that should wounds recur, could consider GSV ablation. Patient's medical history is also significant for CHF, COPD, T2DM, lymphedema. She reports that she has not been taking her furosemide at all for a few weeks as she lost this month's supply. She states she has been wearing the compression stockings but feels her swelling has been worse over the last couple of weeks and then these blisters appeared, ruptured, and turned into the superficial wounds she presents with today. Subjective Subjective Patient continues to tolerate the 3M wraps and is showing some improvement in her swelling. She was able to start her lasix again this week, taking BID. No erythema, drainage, new wound, N/V, F/C. Objective Data Objective Data Vital Signs: Vital Signs Temp Pulse Resp BP O2 Del Method 96.2 F L 72 18 150/60 H Room Air 09/11/22 12:59 09/08/22 13:24 09/11/22 12:59 09/11/22 12:59 09/04/22 11:23 Oxygen Delivery Method Room Air Weight: 314 lb 6 oz Body Mass Index (BMI) 50.7 Lab / Micro Data Micro: Microbiology 08/21/22 11:00 Wound Abcess - Leg, Left Gram Stain - Final 08/21/22 11:00 Wound Abcess - Leg, Left Wound Culture - Final Serratia marcescens Meth. resistant Staph. aureus 08/21/22 11:00 Wound Abcess - Leg, Left Anaerobic Culture - Final No anaerobic bacteria isolated. Charges/Coding Visit Charges Office Visits / Consults: [id number] OV L1 Est Physical Exam Const alert, oriented x3 and no apparent distress General Appearance: cooperative HEENT normocephalic, head/scalp atraumatic, hearing grossly normal bilaterally, external ears normal and external nose normal Eyes EOMs intact bilaterally General Eye: normal appearance of both eyes Neck full ROM General: normal visual inspection and trachea midline Resp normal respiratory effort, no use of accessory muscles and clear to auscultation bilaterally Effort and Inspection: able to speak in complete sentences and symmetric chest movement; Negative for labored, stridor or audible wheezes Auscultation: clear to auscultation bilaterally and diminished lung sounds Cardio regular rate and regular rhythm Peripheral Pulses: brachial pulses present and radial pulses present Extremity Extremity Narrative: Significant bilateral lower extremity edema. Normal capillary refill. Skin Skin Narrative: Bilateral venous stasis dermatitis Wounds: wounds noted Neuro oriented x3, CN's II-XII intact bilaterally, moves all extremities and no focal motor deficits Coordination / Balance: tandem gait normal Psych mental status grossly normal Appearance: grossly normal Attitude: calm and engaged Activity / Motor Behavior: appropriate eye contact Speech: normal speech Mood & Affect: euthymic mood Attention / Concentration: attention grossly intact Memory / Cognition: memory grossly intact Debridement Note Debridement Note No debridement was completed: No debridement was completed today Post-Debridement Measurements and Additional Note: Post-Debridement Measurements/Treatment - Nurse 1 - General Ulcer Assessment Start: 08/21/22 10:46 Freq: Status: Active Protocol: [email or web address].[email or web address] Activity Type Activity Date Activity User E-sign Co-sign Detail Recorded Client Recorded Date Recorded By Document 08/21/22 10:46 AK [id number] 08/21/22 10:49 AK Document 08/28/22 12:18 AK [id number] 08/28/22 12:22 AK Document 09/01/22 13:59 DL [id number] 09/01/22 14:09 DL Document 09/04/22 11:23 MT [id number] 09/04/22 11:43 MT Document 09/08/22 13:24 DL [id number] 09/08/22 13:42 DL Document 09/11/22 12:59 [id number] 09/11/22 13:08 08/21/22 08/28/22 09/01/22 10:46 12:18 13:59 - Today's Visit Information Type of service Follow-up Visit Follow-up Visit Nurse-only (Physician/BUZZSAW OPERATOR HELPER (Physician/BUZZSAW OPERATOR HELPER Visit ) ) Arrival Mode Ambulatory Ambulatory Ambulatory Transfer Assistance None Accompanied by Patient Identification Verified (Name & Yes Yes Yes ) Patient Requires Transmission-Based No No No Precautions Safety Precautions NA NA Height and Weight Body Mass Index (BMI) 50.7 50.7 50.7 BMI Classification Obese Obese Obese Vital Signs Temperature (97.8 F-99.1 F) 96.1 F L 97.4 F L Temperature Source Temporal Temporal Pulse Rate (60-100) 71 76 Pulse Location Monitor Monitor Respiratory Rate (12-18) 24 H Respiratory rate source Observation Oxygen Delivery Method Blood Pressure (90/60-120/80) 163/99 H 110/80 Blood Pressure Mean (mm Hg) 120 90 Source Monitor Monitor Position Blood Pressure Location History Since Last Visit- (Skip if this is Patient's initial visit) Have you changed medications since your No No No last visit? Any new allergies or adverse reactions No No No Had a fall/change in ADL's that may No No No increase risk of falls Signs or symptoms of abuse and/or No No No neglect since last visit Have you been in the hospital since your Yes No No last visit? Has dressing in place as prescribed No Yes No Has compression in place as prescribed N/A Yes Yes Has offloadiing in place as prescribed N/A N/A N/A Experienced any changes in pain level or No No Yes management Left Footwear Regular Shoe Regular Shoe Right Footwear Regular Shoe Regular Shoe Pain Scale: 0-10 Numeric Is Patient Pain Free? Yes No Yes 09/04/22 09/08/22 09/11/22 11:23 13:24 12:59 WC - Today's Visit Information Type of service Follow-up Visit Nurse-only Follow-up Visit (Physician/BUZZSAW OPERATOR HELPER Visit (Physician/BUZZSAW OPERATOR HELPER ) ) Arrival Mode Ambulatory Ambulatory Ambulatory Transfer Assistance None Accompanied by Patient Identification Verified (Name & Yes Yes ) Patient Requires Transmission-Based No No Precautions Safety Precautions Fall Prevention Height and Weight Body Mass Index (BMI) 50.7 50.7 50.7 BMI Classification Obese Obese Obese Vital Signs Temperature (97.8 F-99.1 F) 97 F L 96.3 F L 96.2 F L Temperature Source Temporal Temporal Temporal Pulse Rate (60-100) 82 72 Pulse Location Monitor Monitor Respiratory Rate (12-18) 18 20 H 18 Respiratory rate source Observation Observation Observation Oxygen Delivery Method Room Air Blood Pressure (90/60-120/80) 154/49 H 185/84 H 150/60 H Blood Pressure Mean (mm Hg) 84 117 90 Source Monitor Monitor Monitor Position Sitting Semi-Fowlers Blood Pressure Location Left Arm Right Forearm History Since Last Visit- (Skip if this is Patient's initial visit) Have you changed medications since your No No last visit? Any new allergies or adverse reactions No No Had a fall/change in ADL's that may No No increase risk of falls Signs or symptoms of abuse and/or No No neglect since last visit Have you been in the hospital since your No No last visit? Has dressing in place as prescribed Yes Yes Yes Has compression in place as prescribed Yes Yes Yes Has offloadiing in place as prescribed Yes N/A N/A Experienced any changes in pain level or Yes Yes No management Left Footwear Regular Shoe Regular Shoe Right Footwear Regular Shoe Regular Shoe Pain Scale: 0-10 Numeric Is Patient Pain Free? Yes Yes Yes WC - Nurse 1 - General Ulcer Measurement Start: 08/21/22 10:46 Freq: Status: Active Protocol: Activity Type Activity Date Activity User E-sign Co-sign Detail Recorded Client Recorded Date Recorded By Document 08/21/22 10:46 AK [id number] 08/21/22 10:49 AK Document 08/28/22 12:18 AK [id number] 08/28/22 12:22 AK Document 09/01/22 13:59 DL [id number] 09/01/22 14:09 DL Document 09/04/22 11:23 MT [id number] 09/04/22 11:43 MT Document 09/08/22 13:24 DL [id number] 09/08/22 13:42 DL Document 09/11/22 12:59 JF [id number] 09/11/22 13:08 JF 08/21/22 08/28/22 09/01/22 10:46 12:18 13:59 Wound Center Nurse 1 L lateral leg cluster -Combined with other wound No No -Current Size (cm) - Length 5 4 0.1 -Current Size (cm) - Width 3 5 0.1 -Current Size (cm) - Depth 0.1 0.1 -Total Square Cm 15 20 0.01 -Photo Taken Yes Yes -Tunneling No No -Undermining/Tunneling No No -Circular Undermining No No -Change in Wound Grade/Stage No No -Exudate Amt Medium Large None Present -Exudate Type Serosanguineous Purulent -Wound Margin Distinct, Flat & Intact Outline Attached -Granulation Amt None Present (0 None Present (0 Large (67-100%) %) %) -Granulation Quality N/A N/A [place] -Slough/Fibrin No No -Necrosis Amt None Present (0 None Present (0 None Present (0 %) %) %) -Structure Exposed N/A N/A N/A -Texture (Adrianna-wound Skin Appearance) No Abnormality, No Abnormality, Localized Edema Assessed Assessed -Moisture (Adrianna-wound Skin Appearance) Assessed,Dry/ Assessed, Scaly Weeping -Color (Adrianna-wound Skin Appearance) No Abnormality, No Abnormality, Hemosiderin Assessed Assessed Staining -Temperature (Adrianna-wound Skin No Abnormality No Abnormality No Abnormality Appearance) (Pt Warm) (Pt Warm) (Pt Warm) -Tenderness on Palpation (Adrianna-wound No No No Skin Appearance) -Ulcer Cleansing Rinsed/ Soap and Water Soap and Water Irrigated with Saline -Foul Odor after Cleansing No No No #4 L medial LE cluster -Combined with other wound No -Current Size (cm) - Length 0.2 0.1 -Current Size (cm) - Width 0.2 0.1 -Current Size (cm) - Depth 0.1 0.1 -Total Square Cm 0.04 0.01 -Photo Taken Yes -Tunneling No -Undermining/Tunneling No -Circular Undermining No -Change in Wound Grade/Stage No -Exudate Amt Small None Present -Exudate Type Serosanguineous -Wound Margin Distinct, Outline Attached -Granulation Amt Small (1-33%) Large (67-100%) -Granulation Quality N/A [place] -Slough/Fibrin No -Necrosis Amt None Present (0 None Present (0 %) %) -Structure Exposed N/A N/A -Texture (Adrianna-wound Skin Appearance) No Abnormality, Localized Edema Assessed -Moisture (Adrianna-wound Skin Appearance) Assessed, No Abnormality Maceration -Color (Adrianna-wound Skin Appearance) No Abnormality, Hemosiderin Assessed Staining -Temperature (Adrianna-wound Skin No Abnormality No Abnormality Appearance) (Pt Warm) (Pt Warm) -Tenderness on Palpation (Adrianna-wound No No Skin Appearance) -Ulcer Cleansing Rinsed/ Soap and Water Irrigated with Saline -Foul Odor after Cleansing No No -Anesthetic Used 5% Lidocaine Gel Lower Limb Edema Present No Right Calf (cm) 53 50 Point of measurement (cm from the medial instep) Right Ankle (cm) 30 27.5 Point of Measurement (cm from the medial instep) Left Calf (cm) 52.5 56 52.8 Point of measurement (cm from the medial instep) Left Ankle (cm) 28.5 29 28.5 Point of Measurement (cm from the medial instep) 09/04/22 09/08/22 09/11/22 11:23 13:24 12:59 Wound Center Nurse 1 L lateral leg cluster -Combined with other wound No -Current Size (cm) - Length 0 -Current Size (cm) - Width 0 -Current Size (cm) - Depth 0 -Total Square Cm 0 -Photo Taken Yes -Tunneling -Undermining/Tunneling -Circular Undermining -Change in Wound Grade/Stage -Exudate Amt -Exudate Type -Wound Margin -Granulation Amt -Granulation Quality -Slough/Fibrin -Necrosis Amt -Structure Exposed -Texture (Adrianna-wound Skin Appearance) No Abnormality -Moisture (Adrianna-wound Skin Appearance) No Abnormality -Color (Adrianna-wound Skin Appearance) No Abnormality -Temperature (Adrianna-wound Skin No Abnormality Appearance) (Pt Warm) -Tenderness on Palpation (Adrianna-wound No Skin Appearance) -Ulcer Cleansing Soap and Water -Foul Odor after Cleansing No #4 L medial LE cluster -Combined with other wound -Current Size (cm) - Length 0.1 -Current Size (cm) - Width 0.1 -Current Size (cm) - Depth 0.1 -Total Square Cm 0.01 -Photo Taken -Tunneling -Undermining/Tunneling -Circular Undermining -Change in Wound Grade/Stage -Exudate Amt -Exudate Type -Wound Margin -Granulation Amt -Granulation Quality -Slough/Fibrin -Necrosis Amt -Structure Exposed -Texture (Adrianna-wound Skin Appearance) Assessed, No Abnormality Localized Edema -Moisture (Adrianna-wound Skin Appearance) Assessed No Abnormality -Color (Adrianna-wound Skin Appearance) Assessed Assessed -Temperature (Adrianna-wound Skin No Abnormality No Abnormality Appearance) (Pt Warm) (Pt Warm) -Tenderness on Palpation (Adrianna-wound Skin Appearance) -Ulcer Cleansing Wound Cleanser Soap and Water -Foul Odor after Cleansing No -Anesthetic Used Lower Limb Edema Present Yes Right Calf (cm) 48 45.6 Point of measurement (cm from the medial 46 instep) Right Ankle (cm) 28.5 26.6 Point of Measurement (cm from the medial 26 instep) Left Calf (cm) 49 50.2 Point of measurement (cm from the medial 44.5 instep) Left Ankle (cm) 28.5 26.5 Point of Measurement (cm from the medial 26 instep) WC - Nurse 2 - General Ulcer CM Notes Start: 08/21/22 10:46 Freq: Status: Active Protocol: Activity Type Activity Date Activity User E-sign Co-sign Detail Recorded Client Recorded Date Recorded By Document 08/21/22 12:40 PL [id number] 08/21/22 12:42 PL 08/21/22 12:40 Wound Center Nurse 2 L lateral leg cluster -Time 10:55 -Correct Patient Yes -Correct Side, Site, Position Yes -Correct Procedure Yes -Procedure Performed Yes -Type of Procedure Debridement -Clinical Debridement Subcutaneous -Tissue Removed Epidermis, Dermis, Subcutaneous -Post Debridement (cm) - Length 5.0 -Post Debridement (cm) - Width 3.0 -Post Debridement (cm) - Depth 0.1 -Total Square (Post) (cm) 15.00 -Area of Debridement (cm) - Length 5.0 -Area of Debridement (cm) - Width 3.0 -Total Square (Area) (cm) 15.00 -Tunneling No -Undermining/Tunneling No -Circular Undermining No -Wound/Ulcer Outcome Not Healed -Ulcer Cleansing Rinsed/ Irrigated with Saline -Foul Odor after Cleansing No -Bioengineered Tissue No -Bleeding Controlled with Pressure -Treatment Response Procedure Tolerated Well -Debridement - Subq, 1st 20sq cm No #4 L medial LE cluster -Time 10:55 -Correct Patient Yes -Correct Side, Site, Position Yes -Correct Procedure Yes -Procedure Performed Yes -Type of Procedure Debridement -Clinical Debridement Subcutaneous -Tissue Removed Subcutaneous -Post Debridement (cm) - Length 0.2 -Post Debridement (cm) - Width 0.2 -Post Debridement (cm) - Depth 0.1 -Total Square (Post) (cm) 0.04 -Area of Debridement (cm) - Length 0.2 -Area of Debridement (cm) - Width 0.2 -Total Square (Area) (cm) 0.04 -Tunneling No -Undermining/Tunneling No -Circular Undermining No -Wound/Ulcer Outcome Not Healed -Ulcer Cleansing Rinsed/ Irrigated with Saline -Foul Odor after Cleansing No -Bioengineered Tissue No -Debridement - Subq, 1st 20sq cm Yes Pain Scale: 0-10 Numeric Is Patient Pain Free? Yes WC - Nurse 3 - General Ulcer D/C NN Start: 08/21/22 10:46 Freq: Status: Active Protocol: Activity Type Activity Date Activity User E-sign Co-sign Detail Recorded Client Recorded Date Recorded By Document 08/21/22 11:29 MT [id number] 08/21/22 11:34 MT Document 08/28/22 12:18 AK [id number] 08/28/22 12:22 AK Document 09/01/22 13:59 DL [id number] 09/01/22 14:09 DL Document 09/04/22 12:01 MT [id number] 09/04/22 12:02 MT Document 09/08/22 13:24 DL [id number] 09/08/22 13:42 DL 08/21/22 08/28/22 09/01/22 11:29 12:18 13:59 Wound Care Center Nurse 3 L lateral leg cluster -Ulcer Cleansing Rinsed/ Soap and Water Irrigated with Saline -Foul Odor after Cleansing No -Negative Pressure Wound Therapy N/A -Primary Dressing Applied Optilok 8x12 -Primary Dressing Covered/Secured with -Optilok 8x12 1 #4 L medial LE cluster -Ulcer Cleansing Rinsed/ Irrigated with Saline -Primary Dressing Applied Optilok 8x12 -Other Dressing kerlix -Primary Dressing Covered/Secured with Dry Gauze, Secured with Tape -Optilok 8x12 1 luke -Lotion applied to leg before Yes compression wrap -Multi-Layered Wrap Application Multi-Layer Multi-Layer Comp - Bilat ($ Comp - Bilat ($ ) ) Right -Tubular Bandage Double Layer -Size of Tubigrip Used Size F -Size F ($) 2 Left -Tubular Bandage Double Layer -Size of Tubigrip Used Size F -Size F ($) 2 Treatment Response Procedure Tolerated Well Vital Signs Temperature (97.8 F-99.1 F) 96.1 F L 97.4 F L Temperature Source Temporal Temporal Pulse Rate (60-100) 71 76 Pulse Location Monitor Monitor Respiratory Rate (12-18) 24 H Respiratory rate source Observation Blood Pressure (90/60-120/80) 163/99 H 110/80 Blood Pressure Mean (mm Hg) 120 90 Source Monitor Monitor Pain Scale: 0-10 Numeric Is Patient Pain Free? Yes No Yes WC - Visit Discharge Discharge Condition Stable Stable Stable Ambulatory Status Steady Ambulatory Ambulatory Transportation Private Auto Private Auto Private Auto Accompanied by Medication Reconcilliation completed & No Yes provided to patient/care provider Clinical Summary of Care Provided Yes Yes Notes: pt and Pt arrived for verbalized NV. 3M intact, understanding no drainage how to change noted to LLE. dressing. I Pt states that demonstrated she has more how to properly swelling above place her knees in tubigribs on. the last day or pt and so. Denies any verbalized SOB from understanding swelling, D/T how to put CHF. States tubigribs on. not any worse that normal Checked with CNM, ok to reapply 3M today. Pt instructed to remove compression and go to ER if she gets SOB. Facility Type Home Health Orders Sent Yes 09/04/22 09/08/22 12:01 13:24 Wound Care Center Nurse 3 L lateral leg cluster -Ulcer Cleansing lotion -Foul Odor after Cleansing -Negative Pressure Wound Therapy -Primary Dressing Applied -Primary Dressing Covered/Secured with Dry Gauze, Secured with Tape -Optilok 8x12 #4 L medial LE cluster -Ulcer Cleansing -Primary Dressing Applied -Other Dressing -Primary Dressing Covered/Secured with -Optilok 8x12 luke -Lotion applied to leg before compression wrap -Multi-Layered Wrap Application Multi-Layer Multi-Layer Comp - Bilat ($ Comp - Bilat ($ ) ) Right -Tubular Bandage -Size of Tubigrip Used -Size F ($) Left -Tubular Bandage -Size of Tubigrip Used -Size F ($) Treatment Response Procedure Tolerated Well Vital Signs Temperature (97.8 F-99.1 F) 96.3 F L Temperature Source Temporal Pulse Rate (60-100) 72 Pulse Location Monitor Respiratory Rate (12-18) 20 H Respiratory rate source Observation Blood Pressure (90/60-120/80) 185/84 H Blood Pressure Mean (mm Hg) 117 Source Monitor Pain Scale: 0-10 Numeric Is Patient Pain Free? Yes Yes WC - Visit Discharge Discharge Condition Stable Ambulatory Status Ambulatory Transportation Private Auto Accompanied by Medication Reconcilliation completed & provided to patient/care provider Clinical Summary of Care Provided Notes: Facility Type Orders Sent Assessment/Plan Assessment/Plan (1) Non-pressure chronic ulcer left lower leg, limited to breakdown skin: CODE(S): L97.921 - Non-pressure chronic ulcer of unspecified part of left lower leg limited to breakdown of skin (2) DVT, bilateral lower limbs: CODE(S): I82.403 - Acute embolism and thrombosis of unspecified deep veins of lower extremity, bilateral QUALIFIERS: Affected thrombotic vein of extremity: popliteal Chronicity: acute Qualified Code(s): I82.433 - Acute embolism and thrombosis of popliteal vein, bilateral (3) Lymphedema: CODE(S): I89.0 - Lymphedema, not elsewhere classified (4) Edema of both lower extremities: CODE(S): R60.0 - Localized edema PLAN: Plan Wounds have healed, now just managing patient's significant BLE edema which is multi-factorial with CHF, lymphedema, venous insufficiency, and post-thrombotic effects. Small improvements being made with 3M wraps. Patient just started lasix again this week as prescribed/monitored by PCP. Will continue with 3M wraps with goal of continuing to reduce edema to the point patient can maintain with compression stockings. Consistent, adequate compression indefinitely will be important to preventing wound recurrence. May consider lymphedema pumps. Continue to elevate her legs when resting and sleeping. Patient will return to [facility] for nurse visits to change wraps Fridays and Wednesday and will f/u with me in 2 weeks.
[2022-09-15 09:55] VITALS: BP 156/97; PULSE 80; RESP 20; TEMP 35.7; BMI 50.7
[2022-09-18 13:44] VITALS: BP 196/82; PULSE 83; RESP 22; TEMP 35.8; BMI 50.7
== END 2022-09-18 23:59 | disposition home or self-care (01) ==
LOC: WC 13:45
PROVIDERS: PCP Internal Medicine; Visit Provider Physician Assistant
DX: E11.622 Type 2 diabetes mellitus with other skin ulcer (principal); L97.821 Non-pressure chronic ulcer of other part of left lower leg limited to breakdown of skin; J44.9 Chronic obstructive pulmonary disease, unspecified; I50.9 Heart failure, unspecified; E11.59 Type 2 diabetes mellitus with other circulatory complications; I82.433 Acute embolism and thrombosis of popliteal vein, bilateral; I89.0 Lymphedema, not elsewhere classified; M79.89 Other specified soft tissue disorders; R60.0 Localized edema
CPT/HCPCS: 11042; 29580; 29581; 87070; 87075; 87077; 87186; 87205; 99213; G0463

== ENCOUNTER 2022-10-09 13:00 | Outpatient (RCR) | payer MEDICARE, MEDICAID, SELFPAY ==
[2022-09-19 02:06] VITALS: BP 196/82; PULSE 83; RESP 22; TEMP 35.8; BMI 50.7
[2022-09-22 13:32] VITALS: BP 152/66; PULSE 77; RESP 20; TEMP 35.3; BMI 50.7
[2022-09-25 13:41] VITALS: BP 129/80; PULSE 80; RESP 18; TEMP 35.7; BMI 50.7
--- NOTE | 2022-09-25 14:17 | PCM.WC.PN ---
History of Present Illness Date of Service: 09/25/22 Chief Complaint: LLE wounds, bilateral lower extremity swelling History of Wound: Patient has been treated at the [facility] in the past for similar wounds, most recently February 2022. She is also known to me from the vascular surgery clinic where we evaluated her for BLE DVT and venous insufficiency. Patient was started on Eliquis for the provoked DVTs. Consistent measured compression was initiated as she had not previously worn compression between wound episodes. At that time, we did also discuss that should wounds recur, could consider GSV ablation. Patient's medical history is also significant for CHF, COPD, T2DM, lymphedema. She reports that she has not been taking her furosemide at all for a few weeks as she lost this month's supply. She states she has been wearing the compression stockings but feels her swelling has been worse over the last couple of weeks and then these blisters appeared, ruptured, and turned into the superficial wounds she presents with today. Subjective Subjective Patient continues to tolerate the 3M wraps and is showing some improvement in her swelling. No erythema, drainage, new wounds, N/V, F/C. Objective Data Objective Data Vital Signs: Vital Signs Temp Pulse Resp BP O2 Del Method 96.2 F L 80 18 129/80 H Room Air 09/25/22 13:41 09/25/22 13:41 09/25/22 13:41 09/25/22 13:41 09/22/22 13:32 Oxygen Delivery Method Room Air Weight: 314 lb 6 oz Body Mass Index (BMI) 50.7 Charges/Coding Multi Select Codes Visit Charges Office Visit/Consults: 90731 OV L3 Est Physical Exam Const alert, oriented x3 and no apparent distress General Appearance: cooperative HEENT normocephalic, head/scalp atraumatic, hearing grossly normal bilaterally, external ears normal and external nose normal Eyes EOMs intact bilaterally General Eye: normal appearance of both eyes Neck full ROM General: normal visual inspection and trachea midline Resp normal respiratory effort and no use of accessory muscles Effort and Inspection: able to speak in complete sentences and symmetric chest movement; Negative for labored, stridor or audible wheezes Extremity Extremity Narrative: significant bilateral lower extremity swelling with venous stasis dermatitis Neuro oriented x3, CN's II-XII intact bilaterally, moves all extremities and no focal motor deficits Psych mental status grossly normal Appearance: grossly normal Attitude: calm and engaged Activity / Motor Behavior: appropriate eye contact Speech: normal speech Mood & Affect: euthymic mood Attention / Concentration: attention grossly intact Memory / Cognition: memory grossly intact Debridement Note Debridement Note No debridement was completed: No debridement was completed today Post-Debridement Measurements and Additional Note: Post-Debridement Measurements/Treatment WC - Nurse 1 - General Ulcer Assessment Start: 09/22/22 13:32 Freq: Status: Active Protocol: KELSEY Activity Type Activity Date Activity User E-sign Co-sign Detail Recorded Client Recorded Date Recorded By Document 09/22/22 13:32 MW [id number] 09/22/22 13:37 MW Document 09/25/22 13:41 [id number] 09/25/22 13:45 JF 09/22/22 09/25/22 13:32 13:41 - Today's Visit Information Type of service Nurse-only Follow-up Visit Visit (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/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 ) Arrival Mode Crutches Ambulatory Transfer Assistance None Accompanied by self Patient Identification Verified (Name & Yes ) Patient Requires Transmission-Based No Yes Precautions Safety Precautions NA NA Height and Weight Body Mass Index (BMI) 50.7 50.7 BMI Classification Obese Obese Vital Signs Temperature (97.8 F-99.1 F) 95.6 F L 96.2 F L Temperature Source Temporal Temporal Pulse Rate (60-100) 77 80 Pulse Location Monitor Monitor Respiratory Rate (12-18) 20 H 18 Respiratory rate source Observation Observation Oxygen Delivery Method Room Air Blood Pressure (90/60-120/80) 152/66 H 129/80 H Blood Pressure Mean (mm Hg) 94 96 Source Monitor Monitor Position Sitting Semi-Fowlers Blood Pressure Location Right Arm Left Forearm History Since Last Visit- (Skip if this is Patient's initial visit) Have you changed medications since your No No last visit? Any new allergies or adverse reactions No No Had a fall/change in ADL's that may No No increase risk of falls Signs or symptoms of abuse and/or No No neglect since last visit Have you been in the hospital since your No No last visit? Has dressing in place as prescribed Yes Yes Has compression in place as prescribed Yes Yes Has offloadiing in place as prescribed N/A N/A Experienced any changes in pain level or No No management Left Footwear Regular Shoe Regular Shoe Right Footwear Regular Shoe Regular Shoe Pain Scale: 0-10 Numeric Is Patient Pain Free? Yes Yes - Nurse 1 - General Ulcer Measurement Start: 09/22/22 13:32 Freq: Status: Active Protocol: Activity Type Activity Date Activity User E-sign Co-sign Detail Recorded Client Recorded Date Recorded By Document 09/22/22 13:32 MW [id number] 09/22/22 13:37 MW Document 09/25/22 13:41 [id number] 09/25/22 13:45 JF 09/22/22 09/25/22 13:32 13:41 Wound Center Nurse 1 Lower Limb Edema Present Yes Yes Right Calf (cm) 50.5 46.2 Right Ankle (cm) 27.5 47.7 Left Calf (cm) 46.5 49.2 Left Ankle (cm) 28.0 27.5 - Nurse 3 - General Ulcer D/C NN Start: 09/22/22 13:32 Freq: Status: Active Protocol: Activity Type Activity Date Activity User E-sign Co-sign Detail Recorded Client Recorded Date Recorded By Document 09/22/22 13:32 MW [id number] 09/22/22 13:37 MW 09/22/22 13:32 Vital Signs Temperature (97.8 F-99.1 F) 95.6 F L Temperature Source Temporal Pulse Rate (60-100) 77 Pulse Location Monitor Respiratory Rate (12-18) 20 H Respiratory rate source Observation Oxygen Delivery Method Room Air Blood Pressure (90/60-120/80) 152/66 H Blood Pressure Mean (mm Hg) 94 Source Monitor Position Sitting Blood Pressure Location Right Arm Pain Scale: 0-10 Numeric Is Patient Pain Free? Yes Wound Care Center Nurse 3 Bilateral LE -Lotion applied to leg before Yes compression wrap -Multi-Layered Wrap Application Multi-Layer Comp - Bilat ($ ) Treatment Response Procedure Tolerated Well - Visit Discharge Discharge Condition Stable Ambulatory Status Ambulatory Transportation Private Auto Accompanied by self Medication Reconcilliation completed & No provided to patient/care provider Clinical Summary of Care Provided Yes Notes: Removed old 3M2L wraps. Cleansed bilateral LE with soap/H2O. Patted dry. Lotion applies to lower extremities. Applied 3M 2L wraps bilateral as ordered. Tolerated well. Assessment/Plan Assessment/Plan (1) Non-pressure chronic ulcer left lower leg, limited to breakdown skin: CODE(S): L97.921 - Non-pressure chronic ulcer of unspecified part of left lower leg limited to breakdown of skin (2) DVT, bilateral lower limbs: CODE(S): I82.403 - Acute embolism and thrombosis of unspecified deep veins of lower extremity, bilateral QUALIFIERS: Affected thrombotic vein of extremity: popliteal Chronicity: acute Qualified Code(s): I82.433 - Acute embolism and thrombosis of popliteal vein, bilateral (3) Lymphedema: CODE(S): I89.0 - Lymphedema, not elsewhere classified (4) Edema of both lower extremities: CODE(S): R60.0 - Localized edema PLAN: Plan Wounds have healed, now just managing patient's significant BLE edema which is multi-factorial with CHF, lymphedema, venous insufficiency, and post-thrombotic effects. Continue to make small improvements with 3M wraps. Will continue with 3M wraps with goal of continuing to reduce edema to the point patient can maintain with compression stockings. Consistent, adequate compression indefinitely will be important to preventing wound recurrence. Continue to elevate her legs when resting and sleeping. Patient will return to [facility] for nurse visits to change wraps Fridays and Wednesday and will f/u with me in 2 weeks.
[2022-09-29 14:05] VITALS: BP 182/82; PULSE 87; RESP 24; TEMP 36.3; BMI 50.7
[2022-10-02 13:35] VITALS: BP 152/62; PULSE 74; RESP 18; TEMP 36.1; BMI 50.7
[2022-10-06 09:14] VITALS: BP 157/85; PULSE 86; RESP 20; TEMP 36; BMI 50.7
[2022-10-09 13:11] VITALS: BP 167/93; PULSE 84; RESP 18; TEMP 36.6; BMI 50.7
--- NOTE | 2022-10-09 15:50 | PN.PCM_ITS ---
History of Present Illness Date of Service: 10/09/22 Chief Complaint: LLE wounds, bilateral lower extremity swelling History of Wound: Patient has been treated at the [facility] in the past for similar wounds, most recently February 2022. She is also known to me from the vascular surgery clinic where we evaluated her for BLE DVT and venous insufficiency. Patient was started on Eliquis for the provoked DVTs. Consistent measured compression was initiated as she had not previously worn compression between w ound episodes. At that time, we did also discuss that should wounds recur, could consider GSV ablation. Patient's medical history is also significant for CHF, COPD, T2DM, lymphedema. She reports that she has not been taking her furosemide at all for a few weeks as she lost this month's supply. She states she has been wearing the compression stockings but feels her swelling has been worse over the last couple of weeks and then these blisters appeared, ruptured, and turned into the superficial wounds she presents with today. Subjective Subjective Patient had taken 3M wraps off to shower yesterday evening, not wearing compression today. There has been overall reduction in her BLE swelling but fluctuating results week to week at this point. No erythema, drainage, new wounds, N/V, F/C. Objective Data Objective Data Vital Signs: Vital Signs Temp Pulse Resp BP O2 Del Method 97.8 F 84 18 167/93 H Room Air 10/09/22 13:11 10/09/22 13:11 10/09/22 13:11 10/09/22 13:11 10/06/22 09:14 Oxygen Delivery Method Room Air Weight: 314 lb 6 oz Body Mass Index (BMI) 50.7 Charges/Coding Visit Charges Office Visits / Consults: 57794 OV L3 Est Physical Exam Const alert, oriented x3 and no apparent distress General Appearance: cooperative HEENT normocephalic, head/scalp atraumatic, hearing grossly normal bilaterally, external ears normal and external nose normal Eyes EOMs intact bilaterally General Eye: normal appearance of both eyes Neck full ROM General: normal visual inspection and trachea midline Resp normal respiratory effort and no use of accessory muscles Effort and Inspection: able to speak in complete sentences and symmetric chest movement; Negative for labored, stridor or audible wheezes Extremity Extremity Narrative: significant bilateral lower extremity swelling with venous stasis dermatitis Neuro oriented x3, CN's II-XII intact bilaterally, moves all extremities and no focal motor deficits Psych mental status grossly normal Appearance: grossly normal Attitude: calm and engaged Activity / Motor Behavior: appropriate eye contact Speech: normal speech Mood & Affect: euthymic mood Attention / Concentration: attention grossly intact Memory / Cognition: memory grossly intact Debridement Note Debridement Note No debridement was completed: No debridement was completed today Post-Debridement Measurements and Additional Note: Post-Debridement Measurements/Treatment - Nurse 1 - General Ulcer Assessment Start: 09/22/22 13:32 Freq: Status: Active Protocol: KELSEY Activity Type Activity Date Activity User E-sign Co-sign Detail Recorded Client Recorded Date Recorded By Document 09/22/22 13:32 MW [id number] 09/22/22 13:37 MW Document 09/25/22 13:41 JF [id number] 09/25/22 13:45 JF Document 09/29/22 14:05 DL [id number] 09/29/22 14:20 DL Document 10/02/22 13:35 RB [id number] 10/02/22 13:37 RB Document 10/06/22 09:14 MW [id number] 10/06/22 09:16 MW Document 10/09/22 13:11 PL [id number] 10/09/22 13:17 PL 09/22/22 09/25/22 09/29/22 13:32 13:41 14:05 - Today's Visit Information Type of service Nurse-only Follow-up Visit Nurse-only Visit (Physician/TRANSITION MANAGER Visit ) Arrival Mode Crutches Ambulatory Ambulatory Transfer Assistance None None Accompanied by self Patient Identification Verified (Name & Yes Yes ) Patient Requires Transmission-Based No Yes No Precautions Safety Precautions NA NA Height and Weight Body Mass Index (BMI) 50.7 50.7 50.7 BMI Classification Obese Obese Obese Vital Signs Temperature (97.8 F-99.1 F) 95.6 F L 96.2 F L 97.4 F L Temperature Source Temporal Temporal Temporal Pulse Rate (60-100) 77 80 87 Pulse Location Monitor Monitor Monitor Respiratory Rate (12-18) 20 H 18 24 H Respiratory rate source Observation Observation Observation Oxygen Delivery Method Room Air Blood Pressure (90/60-120/80) 152/66 H 129/80 H 182/82 H Blood Pressure Mean (mm Hg) 94 96 115 Source Monitor Monitor Position Sitting Semi-Fowlers Blood Pressure Location Right Arm Left Forearm History Since Last Visit- (Skip if this is Patient's initial visit) Have you changed medications since your No No No last visit? Any new allergies or adverse reactions No No No Had a fall/change in ADL's that may No No No increase risk of falls Signs or symptoms of abuse and/or No No No neglect since last visit Have you been in the hospital since your No No No last visit? Has dressing in place as prescribed Yes Yes No Has compression in place as prescribed Yes Yes Yes Has offloadiing in place as prescribed N/A N/A N/A Experienced any changes in pain level or No No management Left Footwear Regular Shoe Regular Shoe Right Footwear Regular Shoe Regular Shoe Pain Scale: 0-10 Numeric Is Patient Pain Free? Yes Yes Yes 10/02/22 10/06/22 10/09/22 13:35 09:14 13:11 WC - Today's Visit Information Type of service Nurse-only Follow-up Visit Follow-up Visit Visit (Physician/TRANSITION MANAGER (Physician/TRANSITION MANAGER ) ) Arrival Mode Ambulatory Ambulatory Ambulatory Transfer Assistance None None None Accompanied by Patient Identification Verified (Name & Yes Yes Yes ) Patient Requires Transmission-Based No No No Precautions Safety Precautions NA NA Height and Weight Body Mass Index (BMI) 50.7 50.7 50.7 BMI Classification Obese Obese Obese Vital Signs Temperature (97.8 F-99.1 F) 97 F L 96.8 F L 97.8 F Temperature Source Temporal Temporal Temporal Pulse Rate (60-100) 74 86 84 Pulse Location Monitor Monitor Respiratory Rate (12-18) 18 20 H 18 Respiratory rate source Observation Observation Oxygen Delivery Method Room Air Blood Pressure (90/60-120/80) 152/62 H 157/85 H 167/93 H Blood Pressure Mean (mm Hg) 92 109 117 Source Monitor Monitor Position Semi-Fowlers Sitting Blood Pressure Location Left Arm Left Forearm History Since Last Visit- (Skip if this is Patient's initial visit) Have you changed medications since your No No No last visit? Any new allergies or adverse reactions No No No Had a fall/change in ADL's that may No No No increase risk of falls Signs or symptoms of abuse and/or No No No neglect since last visit Have you been in the hospital since your No No No last visit? Has dressing in place as prescribed Yes Yes Yes Has compression in place as prescribed Yes Yes Yes Has offloadiing in place as prescribed No N/A N/A Experienced any changes in pain level or No No No management Left Footwear Regular Shoe Right Footwear Regular Shoe Pain Scale: 0-10 Numeric Is Patient Pain Free? Yes Yes Yes WC - Nurse 1 - General Ulcer Measurement Start: 09/22/22 13:32 Freq: Status: Active Protocol: Activity Type Activity Date Activity User E-sign Co-sign Detail Recorded Client Recorded Date Recorded By Document 09/22/22 13:32 MW [id number] 09/22/22 13:37 MW Document 09/25/22 13:41 JF [id number] 09/25/22 13:45 JF Document 09/29/22 14:05 DL [id number] 09/29/22 14:20 DL Document 10/02/22 13:35 RB [id number] 10/02/22 13:37 RB Document 10/06/22 09:14 MW [id number] 10/06/22 09:16 MW Document 10/09/22 13:11 PL [id number] 10/09/22 13:17 PL 09/22/22 09/25/22 09/29/22 13:32 13:41 14:05 Wound Center Nurse 1 Lower Limb Edema Present Yes Yes Right Calf (cm) 50.5 46.2 46 Right Ankle (cm) 27.5 47.7 26.2 Left Calf (cm) 46.5 49.2 45.2 Left Ankle (cm) 28.0 27.5 26.7 10/02/22 10/06/22 10/09/22 13:35 09:14 13:11 Wound Center Nurse 1 Lower Limb Edema Present Yes Yes Right Calf (cm) 54 49.5 50.5 Right Ankle (cm) 26.5 27.6 32 Left Calf (cm) 51 55.0 50 Left Ankle (cm) 28 28.5 32 WC - Nurse 3 - General Ulcer D/C NN Start: 09/22/22 13:32 Freq: Status: Active Protocol: Activity Type Activity Date Activity User E-sign Co-sign Detail Recorded Client Recorded Date Recorded By Document 09/22/22 13:32 MW [id number] 09/22/22 13:37 MW Document 09/25/22 09:20 PL [id number] 09/28/22 09:20 PL Document 09/29/22 14:05 DL [id number] 09/29/22 14:20 DL Document 10/02/22 13:35 RB [id number] 10/02/22 13:37 RB Document 10/06/22 09:14 MW [id number] 10/06/22 09:16 MW Document 10/09/22 13:32 MT [id number] 10/09/22 13:33 MT 09/22/22 09/25/22 09/29/22 13:32 09:20 14:05 Vital Signs Temperature (97.8 F-99.1 F) 95.6 F L 97.4 F L Temperature Source Temporal Temporal Pulse Rate (60-100) 77 87 Pulse Location Monitor Monitor Respiratory Rate (12-18) 20 H 24 H Respiratory rate source Observation Observation Oxygen Delivery Method Room Air Blood Pressure (90/60-120/80) 152/66 H 182/82 H Blood Pressure Mean (mm Hg) 94 115 Source Monitor Position Sitting Blood Pressure Location Right Arm Pain Scale: 0-10 Numeric Is Patient Pain Free? Yes Yes Yes Wound Care Center Nurse 3 Bilateral LE -Lotion applied to leg before Yes Yes compression wrap -Multi-Layered Wrap Application Multi-Layer Multi-Layer Multi-Layer Comp - Bilat ($ Comp - Bilat ($ Comp - Bilat ($ ) ) ) -Tubular Bandage -Size of Tubigrip Used -Size E ($) Treatment Response Procedure Procedure Tolerated Well Tolerated Well WC - Visit Discharge Discharge Condition Stable Stable Ambulatory Status Ambulatory Ambulatory Transportation Private Auto Private Auto Accompanied by self Medication Reconcilliation completed & No provided to patient/care provider Clinical Summary of Care Provided Yes Notes: Removed old 3M2L wraps. Cleansed bilateral LE with soap/H2O. Patted dry. Lotion applies to lower extremities. Applied 3M 2L wraps bilateral as ordered. Tolerated well. 10/02/22 10/06/22 10/09/22 13:35 09:14 13:32 Vital Signs Temperature (97.8 F-99.1 F) 97 F L 96.8 F L Temperature Source Temporal Temporal Pulse Rate (60-100) 74 86 Pulse Location Monitor Monitor Respiratory Rate (12-18) 18 20 H Respiratory rate source Observation Observation Oxygen Delivery Method Room Air Blood Pressure (90/60-120/80) 152/62 H 157/85 H Blood Pressure Mean (mm Hg) 92 109 Source Monitor Monitor Position Semi-Fowlers Sitting Blood Pressure Location Left Arm Left Forearm Pain Scale: 0-10 Numeric Is Patient Pain Free? Yes Yes Yes Wound Care Center Nurse 3 Bilateral LE -Lotion applied to leg before Yes compression wrap -Multi-Layered Wrap Application Multi-Layer Multi-Layer Comp - Bilat ($ Comp - Bilat ($ ) ) -Tubular Bandage Double Layer -Size of Tubigrip Used Size E -Size E ($) 2 Treatment Response Procedure Procedure Tolerated Well Tolerated Well WC - Visit Discharge Discharge Condition Stable Stable Stable Ambulatory Status Ambulatory Ambulatory Ambulatory Transportation Private Auto Private Auto Private Auto Accompanied by Medication Reconcilliation completed & No No provided to patient/care provider Clinical Summary of Care Provided Yes Yes Yes Notes: pt was d/c home . Assessment/Plan Assessment/Plan (1) Non-pressure chronic ulcer left lower leg, limited to breakdown skin: CODE(S): L97.921 - Non-pressure chronic ulcer of unspecified part of left lower leg limited to breakdown of skin (2) DVT, bilateral lower limbs: CODE(S): I82.403 - Acute embolism and thrombosis of unspecified deep veins of lower extremity, bilateral QUALIFIERS: Affected thrombotic vein of extremity: popliteal Chronicity: acute Qualified Code(s): I82.433 - Acute embolism and thrombosis of popliteal vein, bilateral (3) Lymphedema: CODE(S): I89.0 - Lymphedema, not elsewhere classified (4) Edema of both lower extremities: CODE(S): R60.0 - Localized edema PLAN: Plan Wounds have healed, now just managing patient's significant BLE edema which is multi-factorial with CHF, lymphedema, venous insufficiency, and post-thrombotic effects. Do not feel much more benefit to be gained from 3M wraps with respect to edema. Provided patient with order for compression stockings. Will do 18-25mmHg compression to help with ease of application, but will have patient apply two to each leg for cumulative 30-40mmHg compression. I also advised patient to inquire about donning assist devices. We discussed the importance of wearing compression stockings daily so as to reduce risk of wound recurrence. Patient acknowledged understanding. Will give her double tubigrips to wear for the next few weeks until she obtains stockings. Also advise continuing to elevate feet whenever resting/sleeping. Patient is discharged from [facility]. Return as needed.
== END 2022-10-12 09:11 | disposition home or self-care (01) ==
LOC: WC 13:00
PROVIDERS: PCP Internal Medicine; Visit Provider Physician Assistant
DX: R60.0 Localized edema (principal); J44.9 Chronic obstructive pulmonary disease, unspecified; I50.9 Heart failure, unspecified; I82.433 Acute embolism and thrombosis of popliteal vein, bilateral; E11.9 Type 2 diabetes mellitus without complications; I89.0 Lymphedema, not elsewhere classified; I87.2 Venous insufficiency (chronic) (peripheral); Z79.01 Long term (current) use of anticoagulants; Z79.890 Hormone replacement therapy; Z79.899 Other long term (current) drug therapy
CPT/HCPCS: 29581; 99213; G0463

== ENCOUNTER → 2023-02-11 | Outpatient (CLI) | payer MEDICARE, MEDICAID, SELFPAY ==
[2023-02-11 16:52] LABS: ALB/GLOB Ratio 0.9 RATIO (0.9-2.4); AST(SGOT) 17 U/L (15-37); Alanine Aminotransfer ALT/SGPT 19 U/L (13-56); Albumin, Serum 3.4 g/dL (3.2-5.0); Alkaline Phosphatase 102 U/L (45-117); Anion Gap 6 (5-15); BUN 15 mg/dL (7-18); BUN/Creat Ratio 15.7 RATIO (10-20); Calcium,Total 9.3 mg/dL (8.5-10.1); Chloride 105 mmol/L (98-107); Cholesterol 176 mg/dL (200); Creatinine, Serum 0.96 mg/dL (0.55-1.02); EST Glomerular Filtration Rate 61 mL/min (>60); Est Glom Filt Rate - Afr Amer 73 mL/min (>60); Globulin 3.6 g/dL (2.2-4.2); Glucose 119 mg/dL (74-106); High Density Lipoprotein 37 mg/dL; Potassium 4.1 mmol/L (3.5-5.1); Sodium Level 142 mmol/L (136-145); Thyroid Stim Hormone (TSH) 1.43 uIU/mL (0.358-3.74); Triglycerides 257 mg/dL; Very Low Density Lipoprotein 51 mg/dL (5-40)
== END | disposition home or self-care (01) ==
LOC: BIMLAB 15:49
PROVIDERS: PCP Internal Medicine; Referring Provider Internal Medicine; Visit Provider Internal Medicine
DX: I10 Essential (primary) hypertension (principal); E03.9 Hypothyroidism, unspecified
CPT/HCPCS: 36415; 80053; 80061; 84443

== ENCOUNTER → 2023-03-25 | Outpatient (CLI) | payer MEDICARE, MEDICAID, SELFPAY ==
--- NOTE | 2023-03-25 14:42 | RAD_ITS ---
STUDY: X-RAY - LEFT KNEE REASON FOR EXAM: Female, 73 years old. Left knee pain TECHNIQUE: 3 view(s) of the knee. COMPARISON: None. FINDINGS: Normal visualized distal femur. Normal visualized proximal tibia and fibula. Normal proximal tibiofibular articulation. There is severe degenerative arthrosis of the medial femorotibial compartment with severe joint space narrowing. Normal lateral femorotibial compartment. There is mild degenerative arthrosis of the patellofemoral articulation. The soft tissue structures are unremarkable. RAD/Knee 3 Views IMPRESSION: Degenerative arthrosis. Electronically Signed: Catalino Medina MD at 15:07 EDT ,
== END | disposition home or self-care (01) ==
LOC: RAD 14:41
PROVIDERS: PCP Internal Medicine; Referring Provider Internal Medicine; Visit Provider Internal Medicine
DX: M25.562 Pain in left knee (principal)
CPT/HCPCS: 73562

== ENCOUNTER → 2023-03-29 | Outpatient (CLI) | payer MEDICARE, MEDICAID, SELFPAY ==
[2023-03-29 11:56] LABS: BNP,B-Type NATRIURETIC PEPTIDE 65.8 pg/mL (0-100)
== END | disposition home or self-care (01) ==
LOC: LAB 10:29
PROVIDERS: PCP Internal Medicine; Referring Provider Nurse Practitioner Gerontology; Visit Provider Nurse Practitioner Gerontology
DX: R06.09 Other forms of dyspnea (principal)
CPT/HCPCS: 36415; 83880

== ENCOUNTER 2023-04-30 14:30 | Outpatient (RCR) | payer MEDICARE, MEDICAID, SELFPAY ==
--- NOTE | 2023-04-02 13:31 | HP.PTEVAL ---
Patient's Visit Information Visit Information Visit Information: JERRY BRO is a 73 year old F referred to Physical Therapy by Dr. Alexia Cai MD with a diagnosis of PELVIC FLOOR DYSFUNCTION, INCONTINENCE. Date of Evaluation: 03/26/23 Physical Therapist: Llily Cooney PT, Cert MDT Visit Plan Frequency: 1x/Week Duration: 4-6 Weeks Plan: PELVIC FLOOR EDUCATION FOR STRENGTHENING, LENGTHENING/RELAXATION AND ENDURANCE TRAINING. URINARY URGE AND FREQUENCY EDUCATION. HEALTHY BLADDER HABIT EDUCATION. TRAINING IN COORDINATION OF PELVIC FLOOR MUSCULATURE WITH HIP AND CORE (TRANSVERSE ABDOMINUS) MUSCULATURE. CORE STRENGTHENING. JACK LE ROM, STRETCHING AND STRENGTHENING. HEP INSTRUCTION. Subjective Subjective: Work/Leisure: UNEMPLOYEED. Disability: YES - PATIENT REPORTS SHE IS ON DISABILITY FOR HER EYES. Present symptoms: URINARY INCONTINENCE. UNABLE TO CONTROL URINE. NOT MAKING IT TO THE BATHROOM OR POTTY CHAIR IN TIME. Present since: SINCE HAVING COVID ABOUT 2 YEARS AGO. Pain Scale: N/A Is it getting better, worse or staying the same: STAYING THE SAME Commenced as a result of: COVID Worse: DRINKING MORE WATER. DOESN'T KNOW HOW MUCH SHE DRINKS BUT STATES SHE GETS THIRSTY AND DRINKS A LOT. Better: A PILL A FEW MONTHS AGO THAT DR. CAI PRESCRIBED BUT HAD TO STOP DUE TO HEADACHES. DRINKING LESS WATER. Disturbed sleep: NO CONTROL OF URINE AT NIGHT. Gait: UNABLE TO WALK VERY MUCH BECAUSE OF PAINFUL L KNEE THAT NEEDS REPLACEMENT PER PATIENT REPORT. H/O FALLS. MOST RECENT FALL WAS ABOUT 5-6 MONTHS AGO AT HOME. WAS NOT USING AD AT TIME OF FALL. How long can you delay the need to urinate: NOT AT ALL. Ability to stop urine flow: NO Ability to initiate urine stream: YES PADS: SOAKS THROUGH EVERYTIME URINATES BUT DOESN'T KNOW HOW MANY A DAY. STATES SHE URINATES LESS WHEN DRINKS LESS WATER. Bowel Incontinence: NO Unexplained weight loss: NO PMH/Recent major surgery: CURRENTLY DEALING WITH BLOOD CLOTS IN BOTH LEGS PER PATIENT REPORT. BLINDNESS R EYE. HYPOTHROIDISM. OTHER: PATIENT AND PATIENTS ARE POOR HISTORIANS. CELLULITIS. CHF. HTN. NEUROPATHY. Objective Objective: THIS PATIENT WAS BROUGHT BACK TO A TREATMENT IN A WHEEL CHAIR. INDEP GAIT WITHOUT AD X APPROX 10 FEET X 2 DURING EVALUATION. GAIT IS ANTALGIC WITH EXCESSIVE TRUNK FLEXION AND WITH LIMP ON LLE. SHE TAKES QUICK SHORT STEPS AND REACHES FOR THE CHAIR SOON ABLE TO REACH IT. PATIENT IS ABLE TO TRANSFER FROM SIT TO STAND INDEP'LY WITH JACK UE ASSIST. SHE HAS JACK LE EDEMA WITH BANDAGES ON HER LLE. SHE REPORTS SHE IS A WOUND CENTER PATIENT FOR HER CELLULITIS. JACK UPPER LEG LIGHT TOUCH SENSATION IS GROSSLY INTACT AND SYMMETRICAL AND LOWER LEG SENSATION NOT TESTED DUE TO PATIENT C/O OF THEM BEING VERY SORE. I PROCEEDED CAREFULLY WITH JACK LE ROM AND STRENGTH TESTING AND GROSS ASSESSMENT REVEALS JACK LE TIGHTNESS THROUGHOUT L >RIGHT. STRENGTH AT LEAST: R HIP 4-/5, KNEE 4-/5, ANKLE 4-/5. L HIP 3+/5, KNEE 3-/5, ANKLE 3-/5. CORE STRENGTH - POOR. LUMBAR MVMT LOSS - MODERATE TO RYAN ALL PLANES. FUNCTIONAL SCREEN: Incontinence Impact Questionnaire Score: 9 Urogenital Distress Inventory Score: 9 Goals Goal 1:: PATIENT WILL SUCCESSFULLY DELAY VOIDING UPON RISING FROM SITING X 2 MINUTES TO SUCCESSFULLY MAKE IT TO THE BEDSIDE COMMODE IN TIME TO URINE 25% OF THE TIME. Goal Time Frame: 4-6 Weeks Goal 2:: PATIENT WILL DEMONSTRATE INDEPENDANCE WITH A HEP FOR CONTINUED IMPROVEMENT ONCE FORMAL PHYSICAL THERAPY CONCLUDES. Goal Time Frame: 4-6 Weeks Anticipated Interventions Patient/Client Instruction: Educate patient on: Condition, Plan of Care and Risk Factors For the Purpose of:: To improve self management Therapeutic Exercise to Include: Strength training, Endurance training, Flexibilty training, Neuromotor development and Relaxation training For the Purpose of:: To increase ROM and To improve muscle performance and motor function Text: Thank you for the opportunity to evaluate your patient. For Medicare and Medicare HMO plans, please review the plan of care and approve it. It will need to be FAXED BACK to us at [phone] for Medicare purposes. For Medicare only, by signing this I certify the plan of care. Please let me know if there are questions or concerns regarding this plan of care. Physician Signature: Date:
--- NOTE | 2023-09-30 08:44 | HP.PT.NRP ---
Patient Information Patient Information: JERRY BRO was seen in my office for initial evaluation on 03/26/23. The following Plan of Care was established for this patient: POC Established Initial Frequency: 1x/Week Initial Duration: 4-6 Weeks Anticipated Interventions Patient/Client Instruction: Educate patient on: Condition, Plan of Care and Risk Factors For the Purpose of:: To improve self management Therapeutic Exercise to Include: Strength training, Endurance training, Flexibilty training, Neuromotor development and Relaxation training For the Purpose of:: To increase ROM and To improve muscle performance and motor function Last Seen Last Seen: This patient was last seen in our office 04/30/23. Pertinent comments regarding their Physical therapy will appear below: This patient has not returned to Physical Therapy per plan of care and is appropriate to return to MD for further follow-up as needed. At this point I will be discontinuing this patient from physical therapy. I would be happy to see this patient again in the future if found appropriate by the physician. Thank you! Lilly Cooney, PT, Cert MDT
== END 2023-04-30 19:00 | disposition home or self-care (01) ==
LOC: PT 14:30
PROVIDERS: PCP Internal Medicine; Referring Provider Urology; Visit Provider Urology
DX: N94.9 Unspecified condition associated with female genital organs and menstrual cycle (principal); R32 Unspecified urinary incontinence
CPT/HCPCS: 97162; 97530

== ENCOUNTER → 2023-05-24 | Outpatient (CLI) | payer MEDICARE, MEDICAID, SELFPAY ==
[2023-05-24 16:48] LABS: Absolute Lymphocyte Count 1.54 X10^3/uL (0.83-4.51); Absolute Neutrophil Count 5.4 X10^3/uL (2.0-7.7); Basophil# 0.07 X10^3/uL; Basophil% 0.9 % (0-1); Eosinophil# 0.23 X10^3/uL; Hematocrit 43.9 % (37-47); Hemoglobin 13.8 g/dL (12.0-15.0); Lymphocyte # 1.54 X10^3/ul (0.83-4.51); Lymphocyte % 20.1 % (19-41); Mean Corp Hgb Conc 31.4 g/dL (32-36); Mean Corpuscular Hgb 26.7 pg (27.0-32.0); Mean Corpuscular Volume 84.9 fL (81-99); Mean Platelet Vol. 9.3 fl (6.2-12.0); Monocyte# 0.43 X10^3/uL; Monocyte% 5.6 % (0-10); NRBC Flagged by Analyzer 0 % (0-5); Neutrophil # 5.36 X10^3/uL (2.7-7.7); Neutrophil % 70.1 % (47-70); Platelet Count 289 K/mm3 (150-450); RBC Distribution Width CV 14.2 % (11.6-14.6); RBC Distribution Width SD 43.8 fl (35.1-43.9); Red Blood Count 5.17 M/mm3 (4.2-5.4); White Blood Count 7.7 K/mm3 (4.4-11.0)
[2023-05-24 17:07] LABS: ALB/GLOB Ratio 0.8 RATIO (0.9-2.4); AST(SGOT) 14 U/L (15-37); Alanine Aminotransfer ALT/SGPT 13 U/L (13-56); Albumin, Serum 3.1 g/dL (3.2-5.0); Alkaline Phosphatase 104 U/L (45-117); Anion Gap 6 (5-15); BUN 15 mg/dL (7-18); BUN/Creat Ratio 14.9 RATIO (10-20); Calcium,Total 8.9 mg/dL (8.5-10.1); Chloride 106 mmol/L (98-107); Creatinine, Serum 1.01 mg/dL (0.55-1.02); EST Glomerular Filtration Rate 57 mL/min (>60); Est Glom Filt Rate - Afr Amer 69 mL/min (>60); Glucose 135 mg/dL (74-106); LDH 172 U/L (84-246); Potassium 3.7 mmol/L (3.5-5.1); Protein, Total 7.1 g/dL (6.4-8.2); Sodium Level 141 mmol/L (136-145)
== END | disposition home or self-care (01) ==
PROVIDERS: PCP Internal Medicine; Referring Provider Internal Medicine Medical Oncology; Visit Provider Internal Medicine Medical Oncology
DX: I82.433 Acute embolism and thrombosis of popliteal vein, bilateral (principal)
CPT/HCPCS: 36415; 80053; 83615; 85025

== ENCOUNTER 2023-06-20 15:45 | Emergency (ER) | payer MEDICARE, MEDICAID, SELFPAY ==
[2023-06-20 15:45] VITALS: BP 158/75; PULSE 76; RESP 24; TEMP 36.1; O2SAT 95; BMI 49.8
[2023-06-20 15:58] VITALS: BP 159/58; PULSE 81; RESP 26; O2SAT 95
--- NOTE | 2023-06-20 16:16 | EKG12_ITS ---
Test Reason : SOB Blood Pressure : / mmHG Vent. Rate : 082 BPM Atrial Rate : 082 BPM P-R Int : 178 ms QRS Dur : 082 ms QT Int : 378 ms P-R-T Axes : 080 000 047 degrees QTc Int : 441 ms Normal sinus rhythm Low voltage QRS ST & T wave abnormality, consider anterolateral ischemia Abnormal ECG Confirmed by THERESE CASANOVA, JOSE FRANCISCO ([id number]), state editor PIETRO PULIDO ([id number]) on 06/22/2023 8:35:00 AM Referred By: ZANDER Confirmed By:JOSE FRANCISCO SALEH MD
--- NOTE | 2023-06-20 16:16 | EX.ED.DYSGE1 ---
HPI History of Present Illness Chief Complaint: Wound Informant: patient and spouse/S.O. Narrative Narrative: 73-year-old female presenting to the emergency department with bilateral leg swelling redness and weeping of fluid. Patient states that her legs became significantly more swollen painful and red the day after Yong. She states now they are leaking fluid. She states she has chronic lymphedema of the legs as well as a history of congestive heart failure. She takes Lasix 40 mg once a day per her per chart is twice a day. She states that she has felt chilled when she should be warm. Though she denies any fever. Patient notes more shortness of breath than normal. She notes a cough with occasional sputum production which has not to abnormal. She states that she is a diabetic but is not sure because when they take her blood sugar it is normal. Patient states she has had a bit more hard time walking around the house. She uses a walker chronically. She states that the weight of the legs and her chronic knee pain makes it difficult. The patient wears oxygen as needed. [facility] Medical History Abdominal pain Alcohol use Asthma Back pain Bladder disease Blister Cardiology follow-up encounter Chronic respiratory failure with hypoxia Constipation COPD (chronic obstructive pulmonary disease) CPAP (continuous positive airway pressure) dependence Debility Depression Depression Dermatitis Diabetes Diabetes mellitus type 2 in obese Dietary restriction Difficulty swallowing Difficulty swallowing DVT (deep venous thrombosis) DVT, bilateral lower limbs Easy bruising Essential hypertension Former smoker Gastric ulcer GERD (gastroesophageal reflux disease) Health care maintenance History of CHF (congestive heart failure) History of echocardiogram History of edema History of pain when walking Hx of cyst of breast Hyperlipidemia Hypertension Hypothyroidism Inactivity Left knee pain Left ventricular hypertrophy Leg cramps Lymphedema Morbid obesity with BMI of 45.0-49.9, adult Neuropathy On home oxygen therapy DOLORES (obstructive sleep apnea) Osteoarthritis Pneumonia due to COVID-19 virus (01/30/21) Secondary pulmonary arterial hypertension Shingles Shortness of breath on exertion Sore throat Syncope Type 2 diabetes mellitus Ulcer of right lower extremity Urinary incontinence with continuous leakage Walker as ambulation aid Wears dentures Wears glasses Home Medications fenofibrate nanocrystallized 48 mg tablet 48 mg PO DAILY 05/07/21 [History Last Taken Unknown] calcium carb 300 mg-D3 20 mcg-mag ox 25 mg-copier operator 0.5 [id number] tablet (Caltrate-D3 Plus Minerals) 1 tab PO DAILY 06/09/21 [History Last Taken Unknown] Nebulizer #1 ea 10/06/21 [Rx Last Taken Unknown] docusate sodium 100 mg capsule (Stool Softener) 100 mg PO BID 06/04/22 [History Last Taken Unknown] furosemide 40 mg tablet 40 mg PO BID HEART FAILURE #180 tabs 09/04/22 [Rx Last Taken Unknown] fluticasone fur. 200 mcg-umeclid 62.5 mcg-vilant 25 mcg inhalat.powder (Trelegy Ellipta) 1 inh inhalation DAILY #60 ea 10/01/22 [Rx Last Taken Unknown] Handicap Placard #1 ea 11/02/22 [Rx Last Taken Unknown] Bedside Commode #1 ea 02/11/23 [Rx Last Taken Unknown] walker (Ultra-Light Rollator misc) #1 ea 02/11/23 [Rx Last Taken Unknown] levothyroxine 100 mcg tablet See Rx Instructions .Route .COMPLEX #90 tabs 04/28/23 [Rx Last Taken Unknown] albuterol sulfate 90 mcg/actuation aerosol inhaler 2 puff inhalation Q6H PRN shortness of breath or wheezing #8.5 grams 05/17/23 [Rx Last Taken Unknown] atorvastatin 40 mg tablet 40 mg PO QHS 06/20/23 [History Last Taken Unknown] bumetanide 1 mg tablet 1 mg PO BID #14 tabs 06/20/23 [Rx Last Taken Unknown] carvedilol 25 mg tablet 25 mg PO DAILY 06/20/23 [History Last Taken Unknown] cephalexin 500 mg capsule 500 mg PO TID 7 days #21 caps 06/20/23 [Rx Last Taken Unknown] duloxetine 60 mg capsule,delayed release 60 mg PO DAILY 06/20/23 [History Last Taken Unknown] oxybutynin chloride 5 mg tablet 5 mg PO BID bladder 06/20/23 [History Last Taken Unknown] pantoprazole 40 mg tablet,delayed release 40 mg PO DAILY 06/20/23 [History Last Taken Unknown] Allergy/AdvReac Type Severity Reaction Status Date / Time aspirin AdvReac Abd Verified 06/20/23 15:45 cramps/diarrhea codeine AdvReac Abd Verified 06/20/23 15:45 cramps/diarrhea Penicillins AdvReac Hives Verified 06/20/23 15:45 Family History Grandfather Cancer Daughter Ovarian cancer Brother Diabetes Kidney disease Surgical History History of bunionectomy History of esophagogastroduodenoscopy (EGD) Hx of cholecystectomy Hx of colonoscopy Social History Smoking Status: Former smoker Tobacco: How many years used: 30 how long ago did patient quit smokin years alcohol intake: never substance use type: does not use what type of physical activity do you participate in: none ROS ROS ED Constitutional Constitutional ED: Reports chills; Denies fever(s) or weight loss Eyes Eyes: Denies change in vision or diplopia ENT ENT ED: Denies ear pain, rhinorrhea or sore throat Cardiovascular Cardiovascular: Denies chest pain, orthopnea, palpitations or racing heartbeat Respiratory/Chest Respiratory/Chest: Reports dyspnea, dyspnea on exertion and sputum; Denies cough or orthopnea Gastrointestinal Gastrointestinal: Denies abdominal pain, diarrhea, nausea or vomiting Genitourinary Genitourinary ED: Denies dysuria, hematuria or urinary frequency Musculoskeletal Musculoskeletal: Denies arthralgias or myalgias Integumentary Reports rash and other Details: Bilateral leg swelling redness and weeping of fluid. ; Denies abscess Neurologic Neurologic: Denies headache(s) or weakness Psychiatric Psychiatric: Denies anxiety, depression, suicidal ideation or suicidal thoughts Endocrine Endocrinology: Denies polydipsia, polyphagia or polyuria Allergic/Immunologic Allergic/Immunologic ED: Denies mouth swelling, tongue swelling or urticaria EXAM Physical Exam Const Vital Signs: 06/20/23 15:45 06/20/23 15:58 06/20/23 15:58 Temperature 97.0 F L Temperature Source Temporal Pulse Rate 76 81 Respiratory Rate 24 H 26 H Respiratory Effort Normal Non-Labored Respiratory Pattern Tachypnea Blood Pressure 158/75 H 159/58 H Blood Pressure Mean 102 91 Pulse Ox 95 95 Oxygen Delivery Method Room Air Room Air Room Air 06/20/23 20:17 Temperature Temperature Source Pulse Rate Respiratory Rate Respiratory Effort Respiratory Pattern Blood Pressure 121/92 H Blood Pressure Mean 101 Pulse Ox Oxygen Delivery Method Positive well nourished, well developed and obese General Appearance ED: well developed Nutritional Appearance: obese HEENT Reports normocephalic, head/scalp atraumatic and moist mucous membranes Eyes PERRL and EOMs intact bilaterally Neck no lymphadenopathy, supple and no JVD Resp normal respiratory effort and clear to auscultation bilaterally Cardio regular rate, regular rhythm and no murmurs GI normal to inspection, nondistended, normoactive bowel sounds and non-tender Palpation: soft Back/Spine no CVA tenderness and normal ROM Extremity Extremity Narrative: Patient's bilateral legs are edematous including the thighs. There is erythema of the bilateral lower extremities starting around the ankle joint extending up to the tibial tuberosity. There is skin thickening and some clear fluid drainage. There is some mild increased warmth. General Extremety ED: Yes edema General Extremity: edema bilateral lower extremity Details: severe Neuro oriented x3 and CN's II-XII intact bilaterally Sensorium / Orientation: alert Motor Exam: strength 5/5 throughout Psych mental status grossly normal Mood & Affect: Negative for depressed or tearful Skin no rashes or lesions noted and no wounds MDM MDM MDM Narrative Medical decision making narrative: Basic blood work overall looks pretty good for the patient. White count 8.3 with hemoglobin 13.5. CO2 29 creatinine 1.13. Glucose of 140. Natruretic peptide at 45 troponin was 7. My independent interpretation of the chest x-ray is cardiomegaly no acute process. Her EKG is normal sinus rhythm. Patient's not requiring any supplemental oxygen. She is not in any distress. Think we can place her on Bumex twice a day. I chose this that she tells me she is not sure that the Lasix that she is taking once a day is working. We talked about that a little bit more and we believe that she is taking this twice a day. I do not think that this is cellulitis. She is not having fever elevated white count. However she is a diabetic and the legs are erythema which could very well be from the venous stasis. They do improve with elevation but not all the way. I do not think it is unreasonable to give her some Keflex. She understands return instructions. She understands that some people with this will require admission others do well at home. History & Record Review Discussion w/independent historian: Patient Additional record(s) reviewed:: Prior labs Lab Data Attestation: I reviewed the patient's lab results. Labs: Laboratory Results - last 24 hr 06/20/23 16:28 WBC 8.3 RBC 5.35 Hgb 13.5 Hct 44.6 MCV 83.4 MCH 25.2 L MCHC 30.3 L RDW Std Deviation 43.8 RDW Coeff of Mike 14.4 Plt Count 257 MPV 9.7 Immature Gran % (Auto) 0.600 Neut % (Auto) 67.8 Lymph % (Auto) 20.9 Kleberg % (Auto) 7.5 Eos % (Auto) 2.5 Baso % (Auto) 0.7 Absolute Neuts (auto) 5.6 Absolute Lymphs (auto) 1.73 Nucleated RBC % 0 Sodium 140 Potassium 4.0 Chloride 106 Carbon Dioxide 29.0 Anion Gap 5 BUN 13 Creatinine 1.13 H Estim Creat Clear Calc 40.89 Est GFR (MDRD) Af Amer 61 Est GFR (MDRD) Non-Af 50 L BUN/Creatinine Ratio 11.5 Glucose 140 H Calcium 9.4 Total Bilirubin 0.70 Direct Bilirubin 0.05 AST 21 ALT 14 Alkaline Phosphatase 106 Troponin I High Sens 7 B-Natriuretic Peptide 45.1 Total Protein 7.1 Albumin 3.0 L Globulin 4.1 Radiography Diagnostic Testing: Clinical Impression(s) from Imaging Studies Chest X-Ray 06/20/23 16:37 IMPRESSION: Cardiomegaly. Electronically Signed: Brie Constantino MD at 17:08 EST , EKG Initial EKG: Attestation: I personally reviewed and interpreted this EKG as follows: Comments: Normal sinus rhythm with a ventricular rate of 82 bpm. Discharge Plan Triage Chief Complaint: Wound Other Complaint: Shortness of Breath ED Provider: Yair Law Dx/Rx/DC Orders Clinical Impression: Lymphedema, Venous insufficiency, Type 2 diabetes mellitus, Cellulitis Instructions: ED Cellulitis, ED Peripheral Edema, Bilateral Prescriptions: New bumetanide 1 mg tablet 1 mg PO BID Qty: 14 0RF cephalexin 500 mg capsule 500 mg PO TID 7 Days Qty: 21 0RF No Action fenofibrate nanocrystallized 48 mg tablet 48 mg PO DAILY Caltrate-D3 Plus Minerals 300 mg-800 unit -25 mg-0.5 mg tablet 1 tab PO DAILY (DME) Nebulizer See Rx Instructions .ROUTE .MEDSUPPLY Qty: 1 0RF Rx Instructions: As directed Trelegy Ellipta 200-62.5-25 mcg blister with device 1 inh inhalation DAILY Qty: 60 6RF (DME) Handicap Placard See Rx Instructions .ROUTE .MEDSUPPLY Qty: 1 0RF Rx Instructions: As directed, length of time 3 years (DME) Bedside Commode See Rx Instructions .Route .MEDSUPPLY Qty: 1 0RF Rx Instructions: As directed (DME) Ultra-Light Rollator Misc See Rx Instructions .Route Qty: 1 0RF Rx Instructions: As directed docusate sodium [Stool Softener] 100 mg Capsule 100 mg PO BID atorvastatin 40 mg tablet 40 mg PO QHS carvedilol 25 mg tablet 25 mg PO DAILY oxybutynin chloride 5 mg tablet 5 mg PO BID duloxetine 60 mg capsule,delayed release(DR/EC) 60 mg PO DAILY pantoprazole 40 mg tablet,delayed release (DR/EC) 40 mg PO DAILY Rx Instructions: 40 MG ORALY DAILY furosemide 40 mg tablet 40 mg PO BID Qty: 180 4RF levothyroxine 100 mcg tablet See Rx Instructions .ROUTE .COMPLEX Qty: 90 3RF Dose Instruction: 100 MCG ORALLY DAILY FOR HYPOTHYROIDISM Rx Instructions: 100 MCG ORALLY DAILY FOR HYPOTHYROIDISM albuterol sulfate 90 mcg/actuation HFA aerosol inhaler 2 puff inhalation Q6H PRN (Reason: shortness of breath or wheezing) Qty: 8.5 3RF Primary Care Provider: Luis Cortés Referrals: Luis Cortés MD [Primary Care Provider] - As soon as possible Disposition Disposition: Home, Self Care Discharge Date/Time: 06/20/23 20:18
--- NOTE | 2023-06-20 16:37 | RAD_ITS ---
INDICATION: dyspnea EXAMINATION/TECHNIQUE: X-RAY - XR Chest 1 View COMPARISON: May 04, [address] dated January 30, 2021 FINDINGS: LINES/DEVICES: None. LUNGS: No new consolidation, edema or effusion. There are stable nonspecific opacities within the lower lungs which may reflect atelectasis and/or scarring. No pneumothorax. MEDIASTINUM AND CARDIOVASCULAR STRUCTURES: There is cardiomegaly. Central airways and mediastinal contour are unremarkable. BONES AND SOFT TISSUES: Unremarkable. RAD/Chest 1 View (Portable) IMPRESSION: Cardiomegaly. Electronically Signed: Brie Constantino MD at 17:08 EST ,
[2023-06-20 16:43] LABS: Absolute Lymphocyte Count 1.73 X10^3/uL (0.83-4.51); Absolute Neutrophil Count 5.6 X10^3/uL (2.0-7.7); Basophil# 0.06 X10^3/uL; Basophil% 0.7 % (0-1); Eosinophil# 0.21 X10^3/uL; Eosinophils% 2.5 % (0-5); Hematocrit 44.6 % (37-47); Hemoglobin 13.5 g/dL (12.0-15.0); Lymphocyte # 1.73 X10^3/ul (0.83-4.51); Lymphocyte % 20.9 % (19-41); Mean Corp Hgb Conc 30.3 g/dL (32-36); Mean Corpuscular Hgb 25.2 pg (27.0-32.0); Mean Corpuscular Volume 83.4 fL (81-99); Mean Platelet Vol. 9.7 fl (6.2-12.0); Monocyte# 0.62 X10^3/uL; Monocyte% 7.5 % (0-10); NRBC Flagged by Analyzer 0 % (0-5); Neutrophil # 5.61 X10^3/uL (2.7-7.7); Neutrophil % 67.8 % (47-70); Platelet Count 257 K/mm3 (150-450); RBC Distribution Width CV 14.4 % (11.6-14.6); RBC Distribution Width SD 43.8 fl (35.1-43.9); Red Blood Count 5.35 M/mm3 (4.2-5.4); White Blood Count 8.3 K/mm3 (4.4-11.0)
--- OUTSIDE RECORDS SUMMARY | 2023-06-20 16:49 | XMS RPT_ITS | CCD ---
Author Name Unknown Address [address] [place] [address] Organization [facility] Care Team Providers Care Digital Marketing Consultant Name Role Phone Unavailable Unavailable Unavailable Sringeri, Vijeth Miahiah Unavailable Rinaldi, Marcelo E Admitting Unavailable Rinaldi, Marcelo E Attending Unavailable Rinaldi, Marcelo E Admitting Unavailable Rinaldi, Marcelo E Attending Unavailable Sringeri, Vijeth R Admitting Unavailable Sringeri, Vijeth R Attending Unavailable Rinaldi, Marcelo E Admitting Unavailable Rinaldi, Marcelo E Attending Unavailable Rinaldi, Marcelo E Admitting Unavailable Rinaldi, Marcelo E Attending Unavailable Sourav Bear Admitting Unavailable illSourav Attending Unavailable Sringeri, Vijeth Primary Care Provider [phone] MARJORIE MCCULLOUGH Attending Unavailable MARJORIE MCCULLOUGH Referring Unavailable SRINGERI, VIJETH Primary Care Unavailable RIEHMKRISSY Attending Unavailable MARJORIE MCCULLOUGH Referring Unavailable SRINGERI, VIJETH Primary Care Unavailable KRISSY BLEDSOE Attending Unavailable MARJORIE MCCULLOUGH Referring Unavailable SRINGERI, VIJETH Primary Care Unavailable RIEHMKRISSY Attending Unavailable MARJORIE MCCULLOUGH Referring Unavailable SRINGERI, VIJETH Primary Care Unavailable RIFUENTESMKRISSY Attending Unavailable MARJORIE MCCULLOUGH Referring Unavailable SRINGERI, VIJETH Primary Care Unavailable MARJORIE MCCULLOUGH Attending Unavailable MARJORIE MCCULLOUGH Referring Unavailable SRINGERI, VIJETH Primary Care Unavailable MARJORIE MCCULLOUGH Attending Unavailable MARJORIE MCCULLOUGH Referring Unavailable SRINGERI, VIJETH Primary Care Unavailable MARJORIE MCCULLOUGH Attending Unavailable MARJORIE MCCULLOUGH Referring Unavailable SRINGERI, VIJETH Primary Care Unavailable MARJORIE MCCULLOUGH Attending Unavailable MARJORIE MCCULLOUGH Referring Unavailable SRINGERI, VIJETH Primary Care Unavailable FITCMARJORIE Goss Attending Unavailable FITCMARJORIE Goss Referring Unavailable SRINGERI, VIJETH Primary Care Unavailable FITCMARJORIE Goss Attending Unavailable FITCMARJORIE Goss Referring Unavailable SRINGERI, VIJETH Primary Care Unavailable FITCTheo, MARJORIE Duarte Attending Unavailable FITCTheo, MARJORIE Duarte Referring Unavailable SRINGERI, VIJETH Primary Care Unavailable FITCMARJORIE Goss Attending Unavailable FITCTheo, MARJORIE Duarte Referring Unavailable SRINGERI, VIJETH Primary Care Unavailable FITCTheo, MARJORIE Duarte Attending Unavailable FITCMARJORIE Goss Referring Unavailable SRINGERI, VIJETH Primary Care Unavailable FITCTheo, MARJORIE Duarte Attending Unavailable ORACIO, MARJORIE Duarte Referring Unavailable SRINGERI, VIJETH Primary Care Unavailable Sringeri, Vijeth Rathnjuanyia Primary Care Prov ider Paul Hurley Primary Care Prov ider Xavi, Iasbellunique Dunbar Primary Care Prov ider Ny Walls Primary Care Provider [phone] [facility] Primary Care Provider Unavailbee e Xavi CASANOVA, [facility] Primary Care P rovider ZEFERINO RODARTE Referring Unavail able ZEFERINO RODARTE Admitting Unavail able PAUL HURLEY Primary Care U yas Hurley MD, Isabellunique Dunbar Primary Care P rovider Xavi CASANOVA, Paul Dunbar Primary Care P rovider PAUL HURLEY Attending U PAUL Salazar Primary Care U PAUL Salazar Attending U PAUL Salazar Primary Care U PAUL Salazar Attending U navailable SRINGERI, VIJETH RATHNARAJAIAH Primary Care U navailable SRINGERI, VIJETH RATHNARAJAIAH Admitting U navailable CAYDENZEFERINO LARKIN Attending Unavail able SRINGERI, VIJETH RATHNARAJAIAH Referring U navailable SRINGERI, VIJETH RATHNARAJAIAH Primary Care U navailable HAYDEE LAW Attending Unavailable SRINGERI, VIJETH RATHNARAJAIAH Primary Care U navailable SRINGERI, VIJETH RATHNARAJAIAH Attending U navailable SRINGERI, VIJETH RATHNARAJAIAH Primary Care U navailable DURGA ALMEIDA Attending Unavailab le SRINGERI, VIJETH RATHNARAJAIAH Primary Care U navailable CAYDENZEFERINO Attending Unavail able CAYDENZEFERINO LARKIN Admitting Unavail able SRINGERI, VIJETH RATHNARAJAIAH Primary Care U navailable TEAGAN SCHAFER Attending Unavaila ble SRINGERI, VIJETH RATHNARAJAIAH Primary Care U navailable SRINGERI, VIJETH RATHNARAJAIAH Attending U navailable SRINGERI, VIJETH RATHNARAJAIAH Primary Care U navailable SRINGERI, VIJETH RATHNARAJAIAH Referring U navailable SRINGERI, VIJETH RATHNARAJAIAH Referring U navailable SRINGERI, VIJETH RATHNARAJAIAH Attending U navailable SRINGERI, VIJETH RATHNARAJAIAH Primary Care U navailable SRINGERI, VIJETH RATHNARAJAIAH Referring U navailable SRINGERI, VIJETH RATHNARAJAIAH Primary Care U navailable SRINGERI, VIJETH RATHNARAJAIAH Admitting U navailable Xavi CASANOVA, Paul Islas Primary Care Brayan reddy Unavailable Primary Care Provider Unavailabl e Unavailable Primary Care Provider Unavailabl e Xavi CASANOVA, Paul Islas Primary Care Brayan reddy Allergies Allergy Classification Reported Allergen(s) Allergy Type Date of Onset Reaction(s) Facility Aspirin (12 sources) Aspirin; Translations: [ASPIRIN] Drug Allergy 9 GI Intolerance [facility] Opioid Agonists (12 sources) Codeine; Translations: [CODEINE] Drug Allergy 6 GI Upset [facility] Work Phone: Salicylic Acid (12 sources) Salicylic Acid; Translations: [facility]] [facility] Serotonin Reuptake Inhibitors (SSRIs) (12 sources) FLUoxetine; Translations: [FLUOXETINE HCL] Drug Allergy 7 GI Upset [facility] Unclassified (8 sources) Imidazole antifungal Propensity to adverse reactions to drug 6 [facility] Work Phone: (20 sources) Codeine Drug Allergy 6 [facility] (20 sources) FLUoxetine Drug Allergy 7 [facility] (20 sources) Miconazole; Translations: [ANTIFUNGAL - IMIDAZOLE] Drug Allergy 6 [facility] (20 sources) Salicylic Acid Drug Allergy 6 [facility] (20 sources) Aluminum aspirin Drug Allergy 9 [facility] (20 sources) FLUoxetine Drug Allergy 7 Dyspepsia [facility] (6 sources) gabapentin Drug Allergy 9 [facility] (20 sources) Penicillins Propensity to adverse reactions to drug 9 [facility] (20 sources) Aspirin Drug Allergy 9 GI Intolerance [facility] Medications Current Medications Medication Drug Class(es) Dates Sig (Normalized) Sig (Original) [id number] 200 actuat albuterol 0.09 mg/actuat metered dose inhaler (16 sources) beta2-Adrenergic Agonist Start: 02-12-2020 End: 11-04-2020 take 2 puff(s) by inhalation four times daily as needed albuterol 90 mcg/actuation inhaler INHALE 2 PUFFS 4 TIMES A DAY NEEDED 25.5 Inhaler 2 11/04/2020 Active Completed/Discontinued Medications Medication Drug Class(es) Dates Sig (Normalized) Sig (Original) acetaminophen 325 mg oral tablet (20 sources) Start: 06-02-2019 End: 06-09-2019 acetaminophen (TYLENOL) tablet 650 mg Problems Active Problems Problem Classification Problem Date Documented Da te Episodic/Chronic Asthma (2 sources) Mild intermittent asthma; Translations: [Mild intermittent asthma, uncomplicated] Chronic Chronic obstructive pulmonary disease and bronchiectasis (20 sources) Chronic obstructive lung disease; Translations: [Chronic obstructive pulmonary disease, unspecified] Onset: 02-16-2020 02-16-2020 Chronic Congestive heart failure; nonhypertensive (20 sources) Chronic diastolic heart failure; Translations: [Chronic diastolic (congestive) heart failure] Onset: 05-24-2020 05-24-2020 Chronic Diabetes mellitus with complications (14 sources) Type 2 diabetes mellitus; Translations: [Type 2 diabetes mellitus with diabetic polyneuropathy] Onset: 02-16-2020 09-09-2020 Chronic Diabetes mellitus without complication (15 sources) Type 2 diabetes mellitus without complication; Translations: [Type 2 diabetes mellitus] Onset: 02-16-2020 02-16-2020 Chronic Disorders of lipid metabolism (20 sources) Hypercholesterolemia ; Translations: [Hypertriglyceridemi a] Onset: 10-20-2005 02-16-2020 Chronic Essential hypertension (20 sources) Benign hypertension; Translations: [Essential hypertension] Onset: 10-20-2005 02-16-2020 Chronic Genitourinary symptoms and ill-defined conditions (2 sources) Urge incontinence of urine; Translations: [Mixed urinary incontinence] Onset: 05-10-2009 05-10-2009 Chronic Mood disorders (1 source) Depressive disorder; Translations: [Major depressive disorder, single episode, unspecified] Onset: 02-10-2006 02-10-2006 Chronic Mycoses (3 sources) Candidiasis of skin; Translations: [Candidiasis] Episodic Osteoarthritis (1 source) Osteoarthritis of left knee joint; Translations: [Primary osteoarthritis of left knee] Osteoporosis (20 sources) Senile osteoporosis; Translations: [Age-related osteoporosis without current pathological fracture] Onset: 05-24-2020 05-24-2020 Chronic Other connective tissue disease (15 sources) Trochanteric bursitis, left hip; Translations: [Trochanteric bursitis of left hip] Onset: 10-19-2018 Episodic Other connective tissue disease (2 sources) Trochanteric bursitis of left hip; Translations: [Trochanteric bursitis of left hip] Other diseases of bladder and urethra (1 source) Bladder irritability; Translations: [Other specified disorders of bladder] Onset: 05-10-2009 05-10-2009 Chronic Other diseases of veins and lymphatics (3 sources) Peripheral venous insufficiency; Translations: [Venous insufficiency (chronic) (peripheral)] Episodic Other gastrointestinal disorders (1 source) Chronic idiopathic constipation; Translations: [Chronic idiopathic constipation] Episodic Other nervous system disorders (20 sources) Neuropathy; Translations: [Polyneuropathy, unspecified] Onset: 05-25-2020 05-25-2020 Chronic Other nervous system disorders (14 sources) Bilateral carpal tunnel syndrome; Translations: [Carpal tunnel syndrome, bilateral upper limbs] Onset: 01-10-2018 01-10-2018 Chronic Other nervous system disorders (18 sources) Carpal tunnel syndrome, bilateral upper limbs; Translations: [Bilateral carpal tunnel syndrome] Onset: 01-10-2018 01-10-2018 Other non-traumatic joint disorders (14 sources) Pain in left hip; Translations: [Pain of left hip joint] Onset: 10-19-2018 Episodic Other non-traumatic joint disorders (2 sources) Hip pain; Translations: [Hip Pain] Onset: 10-03-2018 Episodic Other non-traumatic joint disorders (2 sources) Pain of left hip joint; Translations: [Pain of left hip joint] Other nutritional; endocrine; and metabolic disorders (20 sources) Morbid (severe) obesity due to excess calories; Translations: [Severe obesity] Onset: 02-16-2020 05-25-2020 Chronic Other nutritional; endocrine; and metabolic disorders (7 sources) Morbid obesity; Translations: [Morbid obesity] Onset: 01-13-2019 02-16-2020 Chronic Other nutritional; endocrine; and metabolic disorders (1 source) Metabolic syndrome X; Translations: [Metabolic syndrome] Onset: 10-20-2005 10-20-2005 Chronic Pneumonia (except that caused by tuberculosis or sexually transmitted disease) (2 sources) Severe acute respiratory syndrome; Translations: [SARS-associated coronavirus as the cause of diseases classified elsewhere] Episodic Residual codes; unclassified (1 source) Sleep apnea; Translations: [Sleep apnea, unspecified] Onset: 08-23-2006 08-23-2006 Chronic Residual codes; unclassified (1 source) Swelling - edema - symptom; Translations: [Edema, unspecified] Episodic Residual codes; unclassified (1 source) At high risk for fall; Translations: [At high risk for falls] Skin and subcutaneous tissue infections (1 source) Cellulitis of right lower limb; Translations: [Cellulitis of right lower extremity] Spondylosis; intervertebral disc disorders; other back problems (10 sources) Degeneration of lumbosacral intervertebral disc; Translations: [Spondylosis without myelopathy or radiculopathy, lumbar region] Chronic Thyroid disorders (2 sources) Hypothyroidism; Translations: [Hypothyroidism, unspecified] Onset: 10-01-2005 10-01-2005 Chronic Unclassified (2 sources) PT Eval; Translations: [PT Eval] Onset: 09-26-2018 Unclassified (2 sources) PT Treatment; Translations: [PT Treatment] Onset: 11-04-2018 Unclassified (18 sources) Chronic pain of right upper limb; Translations: [Chronic right shoulder pain] Onset: 06-06-2019 06-07-2019 Unclassified (20 sources) Patient encounter status; Translations: [Well adult health check] Onset: 02-16-2020 02-16-2020 Past or Other Problems Problem Classification Problem Date Documented Da te Episodic/Chronic Diabetes mellitus without complication (20 sources) Hyperglycemia; Translations: [Impaired fasting glycemia] Onset: 10-20-2005 05-24-2020 Episodic Fluid and electrolyte disorders (20 sources) Hypokalemia; Translations: [Hypokalemia] Onset: 06-06-2019 06-06-2019 Episodic Gastritis and duodenitis (2 sources) Acute gastritis; Translations: [Acute gastritis without bleeding] Onset: 11-23-2005 11-23-2005 Episodic Other diseases of veins and lymphatics (10 sources) Stasis dermatitis; Translations: [Venous insufficiency (chronic) (peripheral)] Onset: 01-10-2021 01-10-2021 Episodic Other gastrointestinal disorders (19 sources) Constipation; Translations: [Constipation, unspecified] Onset: 09-09-2020 09-09-2020 Episodic Other non-traumatic joint disorders (20 sources) Knee pain; Translations: [Pain in right knee] Onset: 06-07-2019 06-07-2019 Episodic Other non-traumatic joint disorders (14 sources) Chronic pain of right upper limb; Translations: [Pain in right shoulder] Onset: 06-06-2019 06-07-2019 Episodic Other non-traumatic joint disorders (7 sources) Pain in right knee; Translations: [Pain in joint, lower leg] Onset: 06-07-2019 06-07-2019 Episodic Other screening for suspected conditions (not mental disorders or infectious disease) (16 sources) Patient encounter status; Translations: [Encounter for screening for malignant neoplasm of colon] Onset: 10-03-2020 10-03-2020 Episodic Pleurisy; pneumothorax; pulmonary collapse (20 sources) Thickening of pleura; Translations: [Pleural plaque without asbestos] Onset: 06-07-2019 06-07-2019 Episodic Residual codes; unclassified (20 sources) Needs influenza immunization; Translations: [Encounter for immunization] Onset: 05-25-2020 05-25-2020 Episodic Skin and subcutaneous tissue infections (20 sources) Cellulitis and abscess of lower limb; Translations: [Cellulitis of lower limb] Onset: 06-03-2019 Resolved: 06-07-2019 06-07-2019 Episodic Spondylosis; intervertebral disc disorders; other back problems (20 sources) Lumbosacral radiculopathy; Translations: [Sacroiliac joint pain] Onset: 11-03-2018 Episodic Results Test Name Value Interpretation Reference Range Facil ity Vital Signs Date Time Vital Sign Value Performing Clinician Faci lity 10-03-2020 09:24-0400 BMI (Body Mass Index) 51.62 kg/m2 [facility] 10-03-2020 09:24-0400 Body Temperature 97.11 [degF] [facility] 10-03-2020 09:24-0400 Body weight 145.06 kg [facility] 10-03-2020 09:24-0400 BP Diastolic 74 mm[Hg] [facility] 10-03-2020 09:24-0400 BP Systolic 125 mm[Hg] [facility] 10-03-2020 09:24-0400 Height 167.6 cm [facility] 10-03-2020 09:24-0400 Pulse (Heart Rate) 70 /min [facility] 10-03-2020 09:24-0400 Pulse Oximetry 95 % [facility] 09-09-2020 10:36-0400 BP Diastolic 80 mm[Hg] Vijeth [facility] 09-09-2020 10:36-0400 BP Systolic 153 mm[Hg] [facility] 09-09-2020 10:35-0400 Pulse (Heart Rate) 68 /min [facility] 09-09-2020 10:33-0400 BMI (Body Mass Index) 50.04 kg/m2 [facility] 09-09-2020 10:33-0400 Body Temperature 97.39 [degF] [facility] 09-09-2020 10:33-0400 Body weight 140.62 kg [facility] 09-09-2020 10:33-0400 Height 167.6 cm [facility] 09-09-2020 10:33-0400 Pulse Oximetry 94 % [facility] 05-24-2020 11:11-0500 BMI (Body Mass Index) 50.39 kg/m2 [facility] 05-24-2020 11:11-0500 Body Temperature 98.6 [degF] [facility] 05-24-2020 11:11-0500 Body weight 141.61 kg [facility] 05-24-2020 11:11-0500 BP Diastolic 83 mm[Hg] [facility] 05-24-2020 11:11-0500 BP Systolic 136 mm[Hg] [facility] 05-24-2020 11:11-0500 Height 167.6 cm [facility] 05-24-2020 11:11-0500 Pulse (Heart Rate) 68 /min [facility] 05-24-2020 11:11-0500 Pulse Oximetry 94 % [facility] 02-16-2020 11:22-0400 BMI (Body Mass Index) 50.04 kg/m2 [facility] 02-16-2020 11:22-0400 Body Temperature 97.9 [degF] [facility] 02-16-2020 11:22-0400 Body weight 140.62 kg [facility] 02-16-2020 11:22-0400 BP Diastolic 83 mm[Hg] Paul Hurley [facility] 02-16-2020 11:22-0400 BP Systolic 150 mm[Hg] Paul Hurley [facility] 02-16-2020 11:22-0400 [facility].6 [facility] 11:22-0400 Pulse (Heart Rate) 66 /min [facility]-16[facility]2020 11:22-0400 Pulse Oximetry 93 % [facility] 01-28-2020 14:22-0400 Body Temperature 97.81 [degF] Durga [facility] 01-28-2020 14:22-0400 BP Diastolic 107 mm[Hg] Durga [facility] 01-28-2020 14:22-0400 BP Systolic 173 mm[Hg] Durga [facility] 01-28-2020 14:22-0400 Pulse (Heart Rate) 73 /min [facility] 01-28-2020 14:22-0400 Pulse Oximetry 95 % [facility] 01-28-2020 14:22-0400 Respiratory Rate 18 /min Durga [facility] 06-30-2019 07:11-0500 Body Temperature 97.7 [degF] [facility] 06-30-2019 07:11-0500 BP Diastolic 70 mm[Hg] [facility] 06-30-2019 07:11-0500 BP Systolic 135 mm[Hg] [facility] 06-30-2019 07:11-0500 Pulse (Heart Rate) 71 /min [facility] 06-30-2019 07:11-0500 Respiratory Rate 20 /min [facility] 06-23-2019 07:54-0500 Height 167.6 cm [facility] 06-23-2019 07:48-0500 Body Temperature 97.5 [degF] [facility] 06-23-2019 07:48-0500 BP Diastolic 79 mm[Hg] [facility] 06-23-2019 07:48-0500 BP Systolic 149 mm[Hg] [facility] 06-23-2019 07:48-0500 Pulse (Heart Rate) 77 /min [facility] 06-23-2019 07:48-0500 Pulse Oximetry 96 % Marilyn Pantoja [facility] 06-23-2019 07:48-0500 Respiratory Rate 20 /min Marilyn Pantoja [facility] 06-19-2019 11:35-0500 Body Temperature 97.3 [degF] Marilyn Pantoja [facility] 06-19-2019 11:35-0500 BP Diastolic 73 mm[Hg] Marilyn Pantoja [facility] 06-19-2019 11:35-0500 BP Systolic 123 mm[Hg] Marilyn Pantoja [facility] 06-19-2019 11:35-0500 Pulse (Heart Rate) 63 /min Marilyn Pantoja [facility] 06-19-2019 11:35-0500 Pulse Oximetry 91 % Marilyn Pantoja [facility] 06-19-2019 11:35-0500 Respiratory Rate 16 /min Marilyn Pantoja [facility] 06-09-2019 08:12-0500 Body Temperature 97.3 [facility]degF] [facility] 06-09-2019 08:12-0500 BP Di[facility] 78 mm[facility]Hg[facility] 06-09-2019 08:12-0500 BP Systolic 135 mm[Hg] [facility] 06-09-2019 08:12-0500 Pulse (Heart Rate) 63 /min [facility] 06-09-2019 08:12-0500 Pulse [facility]ximetry 93 % [facility] 06-09-2019 08:12-0500 Respiratory Rate 16 /min [facility] 06-02-2019 17:41-0500 BMI (Body Mass Index) 40.78 kg/m2 [facility] 06-02-2019 17:41-0500 Body [facility] 114.6 [facility] 06-02-2019 17:41-0500 Height [facility].6 [facility]-16-2019 09:50-0400 BMI (Body Mass Index) 50.36 kg/m2 Marjorie Mccullough [facility] 02-16-2019 09:50-0400 Body weight 141.52 kg Marjorie Mccullough [facility] 02-16-2019 09:50-0400 Height 167.6 cm [facility] 01-13-2019 08:14-0400 BMI (Body Mass Index) 51.33 kg/m2 [facility] 01-13-2019 08:14-0400 Body weight 144.24 kg [facility] 01-13-2019 08:14-0400 Height 167.6 cm [facility] 11-22-2018 11:11-0400 BMI (Body Mass Index) 51.33 kg/m2 [facility] 11-22-2018 11:11-0400 Height 167.6 cm [facility] 11-22-2018 11:11-0400 Weight 144.24 kg [facility] 10-18-2018 10:24-0400 BMI (Body Mass Index) 52.29 kg/m2 [facility] 10-18-2018 10:24-0400 Height 167.6 cm [facility] 10-18-2018 10:24-0400 Weight 146.97 kg [facility] 10-07-2018 10:02-0400 BMI (Body Mass Index) 51.65 kg/m2 [facility] 10-07-2018 10:02-0400 Height 167.6 cm [facility] 10-07-2018 10:02-0400 Weight 145.15 kg [facility] 09-16-2018 07:55-0400 BMI (Body Mass Index) 51.65 kg/m2 [facility] 09-16-2018 07:55-0400 Height 167.6 cm [facility] 09-16-2018 07:55-0400 Weight 145.15 kg [facility] Encounters Encounter Date Encounter Type Care Provider Facility Start: 11-04-2021 Refill Haydee arriaga CNP Work Phone: [facility] Cardiology and Primary [facility] Procedures Date Procedure Procedure Detail Performing Clinician Start: 09-12-2020 Microalbumin [Mass/v olume] in Urine by Test strip Paul Hurley Start: 09-09-2020 Adult depression scr eening assessment Paul Hurley Start: 09-02-2020 3 comp foot exam completed Paul Hurley Start: 05-02-2020 MG Breast - bilatera l screening Paul Hurley Work Phone: Start: 05-02-2020 Mammography Paul diaz Start: 01-28-2020 End: 01-28-2020 Glucose [Mass/volume] in Blood Durga Almeida Work Phone: Start: 01-28-2020 X-ray of left knee Robe rt Jon Almeida Work Phone: Start: 01-28-2020 Blood count complete auto&auto difrntl wbc Durga Almeida Work Phone: Start: 06-23-2019 Strapping unna boot Kelsea ty Kit Work Phone: Start: 06-19-2019 Strapping unna boot Kelsea [facility] Kit Work Phone: Start: 06-09-2019 Glucose [Mass/volume ] in Blood Pradyumna Knight Padival Work Phone: Start: 06-08-2019 Glucose [Mass/volume ] in Blood Pradyumna Knight Padival Work Phone: Start: 06-08-2019 Glucose [Mass/volume ] in Blood Pradyumna Knight Padival Work Phone: Start: 06-08-2019 Glucose [Mass/volume ] in Blood Pradyumna Knight Padival Work Phone: Start: 06-08-2019 Ct upper extremity w /o contrast material Andrew Aryandaniella Elaine Work Phone: Start: 06-08-2019 Glucose [Mass/volume ] in Blood Pradyumna Knight Padival Work Phone: Start: 06-07-2019 Glucose [Mass/volume ] in Blood Pradyumna Knight Padival Work Phone: Start: 06-07-2019 Glucose [Mass/volume ] in Blood Pradyumna Knight Padival Work Phone: Start: 06-07-2019 Glucose [Mass/volume ] in Blood Pradyumna Knight Padival Work Phone: Start: 06-07-2019 Standard chest X-ray Isabell Hurley Work Phone: Start: 06-07-2019 Glucose [Mass/volume ] in Blood Abilio Sanders Work Phone: Start: 06-07-2019 Basic metabolic 2000 panel - Serum or Plasma Paul Hurley Work Phone: Start: 06-07-2019 Complete blood count with white cell differential, automated Paul Hurley Work Phone: Start: 06-07-2019 Complete blood count with white cell differential, manual Paul Hurley Work Phone: Start: 06-07-2019 Hepatic function 200 0 panel - Serum or Plasma Paul Hurley Work Phone: Start: 06-07-2019 Magnesium [Mass/volu me] in Serum or Plasma Paul Hurley Work Phone: Start: 06-06-2019 Glucose [Mass/volume ] in Blood Abilio Sandesr Work Phone: Start: 06-06-2019 End: 06-06-2019 Radex shoulder complete minimum 2 views Abilio Sanders Work Phone: Start: 06-06-2019 Glucose [Mass/volume ] in Blood Abilio Sanders Work Phone: Start: 06-06-2019 Glucose [Mass/volume ] in Blood Abilio Sanders Work Phone: Start: 06-06-2019 Glucose [Mass/volume ] in Blood Abilio Sanders Work Phone: Start: 06-06-2019 Bilirubin.direct [Mass/volume] in Serum or Plasma Paul Hurley Work Phone: Start: 06-06-2019 Complete blood count with white cell differential, automated Paul Hurley Work Phone: Start: 06-06-2019 Complete blood count with white cell differential, manual Paul Hurley Work Phone: Start: 06-06-2019 Comprehensive metabo lic 2000 panel - Serum or Plasma Marilyn Pantoja Work Phone: Start: 06-06-2019 Magnesium [Mass/volu me] in Serum or Plasma Paul Hurley Work Phone: Start: 06-05-2019 Glucose [Mass/volume ] in Blood Abilio Sanders Work Phone: Start: 06-05-2019 Glucose [Mass/volume ] in Blood Abilio Sanders Work Phone: Start: 06-05-2019 Glucose [Mass/volume ] in Blood Abilio Sanders Work Phone: Start: 06-05-2019 Dup-scan xtr veins complete bilateral study Marilyn Pantoja Work Phone: Start: 06-05-2019 Non-invas physiologi c std extremity art 2 level Marilyn Pantoja Work Phone: Start: 06-05-2019 Glucose [Mass/volume ] in Blood Abilio Sanders Work Phone: Start: 06-05-2019 Basic metabolic 2000 panel - Serum or Plasma Paul Hurley Work Phone: Start: 06-05-2019 Magnesium [Mass/volu me] in Serum or Plasma Paul Hurley Work Phone: Start: 06-05-2019 Glucose [Mass/volume ] in Blood Abilio Sanders Work Phone: Start: 06-04-2019 Glucose [Mass/volume ] in Blood Pravignesha Eugene Padival Work Phone: Start: 06-04-2019 Glucose [Mass/volume ] in Blood Pradyumna Knight Padival Work Phone: Start: 06-04-2019 Glucose [Mass/volume ] in Blood Pradyumna Knight Padival Work Phone: Start: 06-04-2019 Glucose [Mass/volume ] in Blood Pravignesha Knight Padival Work Phone: Start: 06-03-2019 Glucose [Mass/volume ] in Blood Pradyaureaa Knight Padival Work Phone: Start: 06-03-2019 Glucose [Mass/volume ] in Blood Pradyumna Knight Padival Work Phone: Start: 06-03-2019 Glucose [Mass/volume ] in Blood Pravignesha Eugene Padival Work Phone: Start: 06-03-2019 Glucose [Mass/volume ] in Blood Pravignesha Eugene Padival Work Phone: Start: 06-02-2019 Glucose [Mass/volume ] in Blood Pravignesha Eugene Padival Work Phone: Start: 06-02-2019 Complete blood count with white cell differential, automated Enida Eugene Sanders Work Phone: Start: 06-02-2019 Complete blood count with white cell differential, manual Pravignesha Eugene Sanders Work Phone: Start: 06-02-2019 Comprehensive metabo lic 2000 panel - Serum or Plasma Enida Eugene Sanders Work Phone: Start: 06-02-2019 Glucose [Mass/volume ] in Blood Pravignesha Knight Padival Work Phone: Start: 01-30-2019 MRI of lumbar spine Ld jarrod Gerald Mccullough Work Phone: Start: 09-16-2018 Diagnostic radiograp hy of lumbar spine Marjorie Mccullough Work Phone: Start: 09-16-2018 Skeletal X-ray of pe lvis and hip Marjorie Mccullough Work Phone: Start: 01-16-2008 Mammography Ny juarez Work Phone: Start: 11-23-2005 Colonoscopy Ny juarez Work Phone: Plan of Treatment Date Care Activity Detail Author Start: 02-19-2022 Influenza vaccination [facility] Start: 09-12-2021 Albumin DL <= 20 mg/L (U) [Mass/Vol] Urine Microalbumin [facility] Start: 09-12-2021 Microalbumin measurement, urine, quantitative Urine Microalbumin [facility] Start: 09-12-2021 Urine screening for protein Urine Microalbumin [facility] Start: 09-09-2021 Adolescent depression screening assessment Depression Screening (PHQ9) [facility] Start: 09-09-2021 Depression screening using PHQ-9 (Patient Health Questionnaire 9) score [facility] Start: 09-09-2021 Fall risk assessment Falls Risk Assessment [facility] Start: 09-02-2021 Diabetic foot examination Foot Exam [facility] Start: 05-24-2021 History and physical examination, annual for health maintenance Wellness Visit [facility] Start: 05-02-2021 Screening for malignant neoplasm of breast Mammogram [facility] Start: 05-02-2021 Screening mammography Mammogram [facility] Start: 03-15-2021 HbA1c (Bld) [Mass fraction] A1C [facility] Start: 03-15-2021 Hemoglobin A1c measurement A1C [facility] Start: 02-19-2021 Influenza vaccination [facility] Start: 2021 History and physical examination, annual for health maintenance Wellness Visit [facility] Start: 01-10-2021 End: 01-10-2021 Patient encounter procedure 01/10/2021 Office Visit Primary Care Paul Hruley MD [address] [place] [address] [phone] [facility] Start: 12-16-2020 End: 12-16-2020 Office Visit 12/16/2020 Office Visit Primary Care Paul Hurley MD [address] [place] [address] [phone] [facility] Start: 12-04-2020 End: 12-04-2020 Admission to same day surgery center 12/04/2020 Surgery Zeferino Rodarte MD [address] [place] [address] [phone] COLONOSCOPY [facility] Endoscopy Immunizations Immunization Date Immunization Notes Care Provider Fa cili 05-24-2020 Influenza IIV4 high dose 65 and Older Haydee Law CNP Work Phone: [facility] 05-24-2020 influenza, high dose seasonal, preservative-free Paul Hurley [facility] 05-24-2020 flu vacc [id number] 5yr up,-PF (FLUZONE HIGH-DOSE QV) [facility] 06-03-2019 influenza, high dose seasonal, preservative-free Pradyumna Padival [facility] Payers Date Payer Category Payer Medicaid [id number] 2019 Medicaid MEDICAID [facility] [id number] 2019-Present [phone] [address] [place] [address] [id number] 2019 Medicare [id number] 2019 Medicare [id number] 2019 Medicare [facility] MANAGED [facility] DUAL COMPLETE (O SNP) [id number] 2019-Present [phone] [address] [address] [place] [address] [id number] 2018 Medicare xxxxxxxxx [id number] 2018 Medicaid [id number] 2018 Medicaid [id number] 2014 Medicare [id number] 2014 Medicare [id number] 2014 Medicare MEDICARE MEDICAR E A AND B xxxxxxxxxxx 2014-Present [place], [place] xxxxxxxxxxx [id number] 2009 Medicaid [employer] MEDICAID [id number] 2009-Present Medicaid [id number] 2008 Self-pay SELF PAY HSP/MED ICAL SELF PAY [id number] 2008-2015 SELF PAY Indemnity [id number] .[id number] 1949 Unknown [id number] 2.16.840.1.792407.3.579.2.9 83 1949 Unknown [id number] 2.16.840.1.502263.3.579.2.9 83 1949 Unknown [id number] 2.16.840.1.555236.3.579.2.9 83 1949 Unknown [id number] 2.16.840.1.610831.3.579.2.9 83 1949 Unknown [id number] 2.16.840.1.832719.3.579.2.9 83 1949 Unknown [id number] 2.16.840.1.793038.3.579.2.9 83 1949 Unknown [id number] 2.16.840.1.012301.3.579.2.9 83 1949 Unknown [id number] 2.16.840.1.688418.3.579.2.9 83 1949 Unknown [id number] 2.16.840.1.207107.3.579.2.9 83 1949 Unknown [id number] 2.16.840.1.441924.3.579.2.9 83 1949 Unknown [id number] 2.16.840.1.857952.3.579.2.9 83 1949 Unknown [id number] 2.16.840.1.239087.3.579.2.9 83 1949 Unknown [id number] 2.16.840.1.920602.3.579.2.9 83 1949 Unknown [id number] 2.840.1.132676.3.579.2.9 83 1949 Unknown [id number] 2.16.840.1.652721.3.579.2.9 83 1949 Unknown [id number] 2.16.840.1.882866.3.579.2.9 00 1949 Unknown [id number] 2.16.840.1.079729.3.579.2.9 03 1949 Unknown [id number] 2.16.840.1.162372.3.579.2.9 03 1949 Unknown [id number] 2.16.840.1.516795.3.579.2.9 03 1949 Unknown [id number] 2.16.840.1.510330.3.579.2.9 03 1949 Unknown [id number] 2.16.840.1.750743.3.579.2.9 03 1949 Unknown [id number] 2.16.840.1.179584.3.579.2.9 03 1949 Unknown [id number] 2.16.840.1.327643.3.579.2.9 02 1949 Unknown [id number] 2.16.840.1.711651.3.579.2.9 03 1949 Unknown [id number] 2.16.840.1.594409.3.579.2.9 03 1949 Unknown [id number] 2.16.840.1.933265.3.579.2.9 03 1949 Unknown [id number] 2.16.840.1.432381.3.579.2.9 03 1949 Unknown [id number] 2.16.840.1.769810.3.579.2.9 03 Unknown [id number] Social History Date Type Detail Facility Start: 08-24-2017 End: 01-10-2018 Tobacco smoking status [facility] Unknown if ever smoked [facility] Work Phone: Start: 1950 Sex Assigned At Not on file [facility] [employer] Work Phone: Start: 09-16-2018 End: 06-02-2019 Tobacco smoking status NHIS Former smoker [facility] End: 11-19-2004 History of tobacco use Current smoker [facility] Start: 06-07-2019 End: 01-12-2021 Alcohol intake Ex-drinker (finding) [facility] Exposure to SARS-CoV -2 (event) Not sure [facility] Start: 06-02-2019 End: 02-16-2020 Tobacco use and exposure Former user [facility] Start: 01-13-2019 End: 02-16-2019 Alcohol intake Not Currently [facility] End: 11-19-2004 History of tobacco use Cigarette Smoker [facility] Start: 06-27-2010 End: 06-02-2019 Cigarettes smoked current (pack per day) - Reported [facility] Start: 06-27-2010 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) [facility] Start: 10-15-2020 History SDOH Social Connections Phone 3 [facility] Start: 10-15-2020 History SDOH Financial 4 [facility] Start: 10-15-2020 History SDOH Food Worry 1 [facility] Start: 10-15-2020 History SDOH Transpo rt Med 2 [facility] Goals Date Patient Goal Desired Activity /State Clinical Notes 10-01-2005 to 11-04-2021 Addendum Note - Haydee Law CNP - 11/04/2021 10:15 AM EDTAddendum Note - Haydee Law CNP - 11/04/2021 10:15 AM EDTAddendum Note - Haydee Law CNP - 11/04/2021 10:15 AM EDT Note Date & Type Note Facility 11-04-2021 Note Addended by: HAYDEE LAW on: 11/04/2021 10:15 AM Modules accepted: Orders [facility] 11-04-2021 Note Addended by: HAYDEE LAW on: 11/04/2021 10:15 AM Modules accepted: Orders [facility] 11-04-2021 Miscellaneous Notes Addended by: HAYDEE LAW on: 11/04/2021 10:15 AM Modules accepted: Orders Prescription approved. Sent to pharmacy on file. Pharmacy to notify patient when refill is available. documented in this encounter [facility] 11-04-2021 Telephone encount er Note Prescription approved. Sent to pharmacy on file. Pharmacy to notify patient when refill is available. [facility] 10-13-2021 Telephone encount er Note Prescription approved. Sent to pharmacy on file. Pharmacy to notify patient when refill is available. [facility] 10-13-2021 Miscellaneous Notes Formattin g of this note might be different from the original. Prescription approved. Sent to pharmacy on file. Pharmacy to notify patient when refill is available. documented in this encounter [facility] 06-24-2021 Miscellaneous Notes Prescription approved. Sent to pharmacy on file. Pharmacy to notify patient when refill is available. documented in this encounter [facility] 05-01-2021 Miscellaneous Notes Prescription approved. Sent to pharmacy on file. Pharmacy to notify patient when refill is available. documented in this encounter [facility] 11-12-2020 Miscellaneous Notes Prescription approved. Sent to pharmacy on file. Pharmacy to notify patient when refill is available. documented in this encounter [facility] 11-04-2020 Miscellaneous Notes Prescription approved. Sent to pharmacy on file. Pharmacy to notify patient when refill is available. documented in this encounter [facility] 10-15-2020 History of Presen t illness Narrative Telephone Visit Via Phone Call [address] [facility] [address] [place] [phone] Telephone Visit [facility] 10/15/2020 Haydee Law CNP Provider Location: Office Patient Location Pharmacist Assistant: None Patient Location: Patient's Home Patient: Liz Bro Date of : 1950 (70 y.o. female) PCP: Paul Hurley MD I discussed risks, benefits and alternatives of a telephone visit telemedicine consultation with the patient (and any accompanying persons) including the risks that the patient's personal health details and medical records will be discussed over real-time, synchronous, interactive audio technology, the visit will not be recorded without the express consent of both the provider and the patient, and that there are inherent diagnostic limitations compared to mica-au-pdrv evaluations. We elected to proceed with the telephone visit telemedicine consultation. MICHAEL Hill is a [address] of [address] Paul Hurley MD. History includes COPD, HTN, DM type 2, CHF, Asthma. Currently on Albuterol PRN - Pharmacy reports frequent use by the patient. She reports she utilizes the medication QID secondary to SOB. Did discuss switching to daily inhaler to improve breathing. She is agreeable to this. The following portions of the patient's history were reviewed and updated as appropriate: allergies, current medications, past family history, past medical history, past social history, past surgical history and problem list. Review of Systems Constitutional: Negative for activity change, appetite change, chills, fatigue, fever and unexpected weight change. HENT: Negative for congestion, sinus pressure and sinus pain. Eyes: Negative for visual disturbance. Respiratory: Positive for shortness of breath (chronic, controlled with PRN medications ). Negative for apnea, cough, choking, chest tightness, wheezing and stridor. Cardiovascular: Negative for chest pain, palpitations and leg swelling. Gastrointestinal: Negative for abdominal pain, constipation, diarrhea, nausea and vomiting. Endocrine: Negative for polydipsia, polyphagia and polyuria. Genitourinary: Negative for difficulty urinating, dyspareunia, frequency, hematuria and urgency. Musculoskeletal: Negative for back pain, joint swelling, myalgias and neck pain. Skin: Negative for rash. Neurological: Negative for dizziness, seizures, syncope, facial asymmetry, speech difficulty, light-headedness, numbness and headaches. Psychiatric/Behavioral: The patient is not nervous/anxious. Patient's Medications New Prescriptions BUDESONIDE-FORMOTEROL (SYMBICORT) 160-4.5 MCG/ACTUATION INHALER Inhale 2 (two) puffs 2 (two) times a day . Previous Medications ALBUTEROL 90 MCG/ACTUATION INHALER INHALE 2 PUFFS 4 TIMES A DAY NEEDED ATORVASTATIN (LIPITOR) 40 MG TABLET Take 1 (one) tablet (40 mg total) by mouth daily . BISACODYL (DULCOLAX) 5 MG EC TABLET As instructed . CALCIUM CARBONATE (OS-JUAN MANUEL) 600 MG CALCIUM (1,500 MG) TABLET Take 600 mg by mouth 2 (two) times a day with meals . CARVEDILOL (COREG) 25 MG TABLET Take 1 (one) tablet (25 mg total) by mouth 2 (two) times a day . DOCUSATE SODIUM (COLACE) 100 MG CAPSULE Take 1 (one) capsule (100 mg total) by mouth every 12 (twelve) hours as needed . DULOXETINE (CYMBALTA) 60 MG CAPSULE Take 1 (one) capsule (60 mg total) by mouth daily . FENOFIBRATE (TRICOR) 48 MG TABLET Take 1 (one) tablet (48 mg total) by mouth daily Give with food . FUROSEMIDE (LASIX) 40 MG TABLET Take 1 (one) tablet (40 mg total) by mouth See Admin Instructions 40 mg AM and 20 mg PM per patient . GENTAMICIN (GARAMYCIN) 0.1 % CREAM APPLY TO LEFT LEG ULCER SITE ONCE A DAY LEVOTHYROXINE (SYNTHROID, LEVOTHROID) 100 MCG TABLET Take 1 (one) tablet (100 mcg total) by mouth daily . MULTIVIT-MIN/IRON/FOLIC/LUTEIN (CENTRUM SILVER WOMEN ORAL) Take by mouth . OXYBUTYNIN (DITROPAN) 5 MG TABLET Take 1 (one) tablet (5 mg total) by mouth 2 (two) times a day . POTASSIUM CHLORIDE 10 MEQ CR TABLET Take 2 (two) tablets (20 mEq total) by mouth 2 (two) times a day . SPIRONOLACTONE (ALDACTONE) 25 MG TABLET Take 1 (one) tablet (25 mg total) by mouth daily . Modified Medications No medications on file Discontinued Medications No medications on file Assessment/Plan: Problem List Items Addressed This Visit Respiratory Chronic obstructive pulmonary disease (HCC) - Primary Relevant Medications budesonide-formoteroL (Symbicort) 160-4.5 mcg/actuation inhaler Other Visit Diagnoses Mild intermittent asthma without complication Relevant Medications budesonide-formoteroL (Symbicort) 160-4.5 mcg/actuation inhaler I have spent 5-10 minutes with the patient reviewing the HPI and Plan of Care. documented in this encounter [facility] 11-11-2010 Miscellaneous Notes Tried to call pt. Could not get through. The following approved medication requests have been transmitted electronically. Approved Prescriptions Disp Refills furosemide 20 mg ORAL tablet 30 tablet 5 Sig: Take 1 tablet by mouth once daily. Use instead of triam/HCTZ since not available Authorizing Provider: [place] Lpn Can use Lasix for now. Should get labs updated in 1 to 2 week as already ordered so can make sure potassium and renal function are okay, plus due for updating labs. She missed October appointment and did not get labs that were ordered for that appointment. Can reorder labs if needed (if ). Leticia [facility] calling-states that dyazide (and maxide) are both on national shortage-unable to get and unsure how long it will be. Asking for medication to replace Dyazide please review and advise Thank You, Alicia Hardy LPN documented in this encounter [facility] documented as of this encounter (statuses as of 10/09/2020) [facility] Edema- Primary HYPERTENSION NOS Unspecified essential hypertension [facility] Diagnosis Encounter for screening colonoscopy for tzc-fvng-dilc patient- Primary Chronic obstructive pulmonary disease, unspecified COPD type (HCC)- Primary Mild intermittent asthma without complication Encounter for screening colonoscopy for wdt-cacj-kcuf patient documented in this encounter [facility] note* Diagnosis Encounter for screening colonoscopy for rmk-ldtr-pyyy patient- Primary Encounter for screening colonoscopy for rhg-djse-knhq patient- Primary Encounter for screening colonoscopy for fjv-lozc-firf patient [facility] Diagnosis Encounter for screening colonoscopy for vjd-qejl-njyl patient- Primary Sars-associated coronavirus as the cause of diseases classified elsewhere- Primary Encounter for screening colonoscopy for ngl-mlxc-iltg patient [facility] Diagnosis Encounter for screening colonoscopy for dkt-ddcg-telj patient- Primary Encounter for screening colonoscopy for kfk-lpzx-ratc patient- Primary Encounter for screening colonoscopy for joq-vlqj-kcdu patient [facility] Diagnosis Encounter for screening colonoscopy for hxj-jusb-lchi patient- Primary Chronic obstructive pulmonary disease, unspecified COPD type (HCC) Mild intermittent asthma without complication Encounter for screening colonoscopy for dch-layd-jijm patient [facility]* Diagnosis Essential (primary) hypertension Unspecified essential hypertension [facility]* Diagnosis Essential (primary) hypertension Unspecified essential hypertension [facility]* Diagnosis Essential (primary) hypertension Unspecified essential hypertension [facility]* Diagnosis Hypercholesteremia Pure hypercholesterolemia documented in this encounter [facility] Summary Purpose Family History No Family History Records FoundNo Family History Records FoundNo Family History Records FoundNo Family History Records FoundNo Family History Records FoundNo Family History Records FoundNo Family History Records FoundNo Family History Records Found Advance Directives Documents on File Type Date Recorded Patient Vest Backer Expl anation Advance Directives and Livin g Will 06/02/2019 8:35 PM Documents on File Type Date Recorded Patient Vest Backer Expl anation Advance Directives and Livin g Will 06/02/2019 8:35 PM Advance Directives and Livin g Will 06/12/2019 10:32 PM Documents on File Type Date Recorded Patient Vest Backer Expl anation Advance Directives and Livin g Will 06/02/2019 8:35 PM Advance Directives and Livin g Will 01/28/2020 2:45 PM Documents on File Type Date Recorded Patient Vest Backer Expl anation Advance Directives and Livin g Will 06/02/2019 8:35 PM Advance Directives and Livin g Will 01/28/2020 2:45 PM Documents on File Type Date Recorded Patient Vest Backer Expl anation Advance Directives and Livin g Will 06/02/2019 8:35 PM Advance Directives and Livin g Will 05/01/2020 11:41 AM Documents on File Type Date Recorded Patient Vest Backer Expl anation Advance Directives and Livin g Will 06/02/2019 8:35 PM Advance Directives and Livin g Will 05/01/2020 11:41 AM Documents on File Type Date Recorded Patient Vest Backer Expl anation Advance Directives and Livin g Will 05/01/2020 11:41 AM Advance Directives and Livin g Will 06/02/2019 8:35 PM Documents on File Type Date Recorded Patient Vest Backer Expl anation Advance Directives and Livin g Will 12/23/2020 2:40 PM Advance Directives and Livin g Will 06/02/2019 8:35 PM Procedure Findings Note [facility] [address] [place] [address] NAME LIZ BRO KIER OPERATOR [id number] 1950 DATE 03/29/2018 OPERATIVE REPORT / PROCEDURE NOTE SURGEON MARCELO RINALDI, PREOPERATIVE DIAGNOSIS Left carpal tunnel syndrome. POSTOPERATIVE DIAGNOSIS Left carpal tunnel syndrome. PROCEDURE PERFORMED Left open carpal tunnel release. ANESTHESIA Local with MAC. ESTIMATED BLOOD LOSS Minimal. SPONGE COUNT Correct. INDICATION FOR PROCEDURE This is a 68-year-old white female with history of carpal tunnel syndrome which had been attempted to be treated conservatively. She had failed conservative therapy, and she now returns for an open carpal tunnel release. DESCRIPTION OF THE PROCEDURE After receiving informed consent, the patient was taken to the operating room. She was laid in the supine position. The left hand, wrist, and forearm were prepped and draped using Betadine and sterile linens. Proceeded then to infiltrate local anesthesia. Made a small (more content not included)... Note [facility] [address] [place] [address] NAME LIZ BRO KIER OPERATOR [id number] 1950 DATE 07/08/2018 OPERATIVE REPORT / PROCEDURE NOTE SURGEON MARCELO RINALDI, PREOPERATIVE DIAGNOSIS Right carpal tunnel syndrome. POSTOPERATIVE DIAGNOSIS Right carpal tunnel syndrome. PROCEDURE PERFORMED Right open carpal tunnel release. ANESTHESIA Local with MAC. ESTIMATED BLOOD LOSS Minimal. SPONGE AND NEEDLE COUNT Correct. INDICATION FOR PROCEDURE This is a 68-year-old female with a history of bilateral carpal tunnel. She had the left side down. Now she returns to get the right side done. DESCRIPTION OF PROCEDURE After receiving informed consent, the patient was taken to the operating room. She was laid in supine position. The right hand, wrist and forearm were prepped and draped using Betadine and sterile linens. Infiltrated local anesthesia. I made an incision along the thenar crease just distal to the transverse carpal ligament. Dissection (more content not included)... Reason for Referral Status Reason Specialty Diagnoses / Procedures Referred By Contact Referred To Contact New Request Physical Therapy Diagnoses Lumbosacral radiculopathy Sacroiliac joint pain Pain of left hip joint Trochanteric bursitis of left hip Marjorie Mccullough, DO [address] [facility] [place] [address] [facility] [address] [id number] Status Reason Specialty Diagnoses / Procedures Referre d By Contact Referred To Contact Camila Olson, PT Status Reason Specialty Diagnoses / Procedures Referred By Contact Referred To Contact New Request Physical Therapy Diagnoses Sacroiliac joint pain Lumbosacral radiculopathy DDD (degenerative disc disease), 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 Marjorie Mccullough, 140 [facility] [address] [place] [id number] [facility] [address] [place] [phone] Status Reason Specialty Diagnoses / Procedures Referred By Contact Referred To Contact New Request Physical Therapy Diagnoses Lumbosacral radiculopathy Sacroiliac joint pain Low back pain, unspecified back pain laterality, unspecified chronicity, with sciatica presence unspecified Trochanteric bursitis of left hip Marjorie Mccullough, DO 140 [facility] [place] [address] [facility] [address] [place] [phone] Status Reason Specialty Diagnoses / Procedures Referred By Contact Referred To Contact New Request Physical Therapy Diagnoses Lumbar facet joint pain Discogenic low back pain DDD (degenerative disc disease), 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 Class 3 severe obesity with body mass index (BMI) of 50.0 to 59.9 in adult, unspecified obesity type, unspecified whether serious comorbidity present Marjorie Mccullough DO [address] [place] [address] [facility] [address] [place] [address] Status Reason Specialty Diagnoses / Procedures Referre d By Contact Referred To Contact Noe Hdz PTA [address] [place] [address] Status Reason Specialty Diagnoses / Procedures Referred By Contact Referred To Contact Pending Review Gastroenterology Diagnoses Encounter for screening colonoscopy Paul Hurley MD [address] [place] [address] Zeferino Rodarte MD [address] [place] [id number] Status Reason Specialty Diagnoses / Procedures Referred By Contact Referred To Contact Authorized Radiology Diagnoses Well adult health check Procedures Mammography Screening Bilateral Paul Hurley MD [address] [place] [address] [phone] Status Reason Specialty Diagnoses / Procedures Referre d By Contact Referred To Contact Closed Radiology Diagnoses Well adult health check Procedures Mammography Screening Bilateral Paul Hurley MD [address] [place] [address] [phone] Status Reason Specialty Diagnoses / Procedures Referred By Contact Referred To Contact Pending Review Specialty Services Required/Briana ent's Best Interest Gastroenterology Diagnoses Encounter for screening colonoscopy Paul Hurley MD [address] [place] [address] Zeferino Rodarte MD [address] [phone] Status Reason Specialty Diagnoses / Procedures Referred By Contact Referred To Contact Authorized Specialty Services Required/Patien t's Best Interest Radiology Diagnoses Age-related osteoporosis without current pathological fracture Procedures XR Bone Density DEXA Axial Paul Hurley MD [address] [place] [address] [phone] Status Reason Specialty Diagnoses / Procedures Referred By Contact Referred To Contact Pending Review Ophthalmology Diagnoses Type 2 diabetes mellitus with diabetic polyneuropathy, without long-term current use of insulin (HCC) Paul Hurley MD [address] [place] [address] Status Reason Specialty Diagnoses / Procedures Referred By Contact Referred To Contact Pending Review Specialty Services Required/Patie nt's Best Interest Podiatry Diagnoses Type 2 diabetes mellitus with diabetic polyneuropathy, without long-term current use of insulin (HCC) Paul Hurley MD [address] [phone] Tyler Joseph DPM [address] [place] [address] Status Reason Specialty Diagnoses / Procedures Referred By Contact Referred To Contact Pending Review Specialty Services Required/Patien t's Best Interest Cardiology Diagnoses Chronic diastolic congestive heart failure (HCC) Procedures Echocardiogram complete Paul Hurley MD [address] [phone] [facility] [address] [place] [address] Status Reason Specialty Diagnoses / Procedures Referred By Contact Referred To Contact Authorized Specialty Services Required/Patie nt's Best Interest Gastroenterology Diagnoses Type 2 diabetes mellitus with diabetic polyneuropathy, without long-term current use of insulin (HCC) Paul Hurley MD [address] [place] [address] Zeferino Rodarte MD [address] [place] [address] Status Reason Specialty Diagnoses / Procedures Referred By Contact Referred To Contact New Request Diagnoses Lumbar facet joint pain Osteoarthritis of facet joint of lumbar spine DDD (degenerative disc disease), lumbosacral Chronic low back pain, unspecified back pain laterality, with sciatica presence unspecified Procedures MRI SPINE LUMBAR WITHOUT CONTRAST MI MRI, LUMBAR SPINE Marjorie Mccullough, DO [address] [place] [address] Status Reason Specialty Diagnoses / Procedures Referred By Contact Referred To Contact Pending Review Magnetic Resonance Imaging Diagnoses Lumbar facet joint pain Osteoarthritis of facet joint of lumbar spine DDD (degenerative disc disease), lumbosacral Chronic low back pain, unspecified back pain laterality, with sciatica presence unspecified Procedures MRI SPINE LUMBAR WITHOUT CONTRAST MI MRI, LUMBAR SPINE Marjorie Mccullough, DO [address] [place] [address] [facility] [address] [place] [address] History of Present Illness * Marjorie Mccullough DO - 09/16/2018 8:00 AM EDT New Patient Office Note - [facility] PATIENT IDENTIFICATION: 68 y.o. female with a history of CHF, diabetes, diabetic neuropathy, obesity, right total knee arthroplasty, lower extremity cellulitis, who was referred by Dr. Gonzalez in the for low back and left lower extremity discomfort that started and early to mid August 2018 with no particular inciting event. Chief Complaint Patient presents with Back Pain [place]: LBP and L LE pain and paresthesia The patient's family/friend () was present and supplemented the history. PHYSICAL EXAM: Height 1.676 m (5' 6 ), weight (!) 145.2 kg (320 lb). Psych: alert and oriented General: no acute distress EOMI Respirations normal and non-labored Vascular: Distal lower extremity pulses (Dorsalis Pedis or Posterior Tibial) palpable bilaterally Abdomen: soft Skin: normal in the lumbosacral spine, without ecchymosis or erythema Reflexes: Absent bilaterally except for left patellar which was one plus. Right patellar difficult to elicit because of the total knee arthroplasty. Lower extremity strength: 2 out of 5 left ankle dorsiflexion because she is lacking full active range of motion against gravity. Left EHL 4 out of 5. Left knee flexion 4 out of 5. Otherwise 5 out of 5 bilaterally. Normal active dorsiflexion with normal strength on the right side. Lower extremity sensation diminished in a stocking pattern in the feet more than the lower legs consistent with her history of diabetic neuropathy. Some numbness in the anterolateral thighs bilaterally however Plantar responses are downgoing No sustained ankle clonus SLR: negative Spurlings: Positive on the left Hip provocative tests: Some pain with internal rotation on the left in sitting SI joint provocative tests: Positive in standing The patient is in quite a bit of pain lying supine is difficult for her so we avoided that Palpation: Tender over the left PSIS, left greater trochanter IMAGING/LABS/STUDIES: reviewed as available below IMPRESSION: Left lumbosacral radiculopathy with weakness in the left ankle dorsiflexors, EHL and knee flexors. Positive Spurling's maneuver on the left. Left SI joint pain. Left hip joint pain Mild left greater trochanteric bursitis PLAN: Medication management: I reviewed their medications and discussed options with her. We discussed acetaminophen, its maximum dosing when liver disease is not present, and the relative lack of potential side effects with this medication compared to other medications. We reviewed the risks of NSAIDs including stomach ulcer, kidney failure, slightly increased risk of heart attack and stroke. A handout listing many medication options for pain was given to the patient. -Acetaminophen: not tried to fullest -NSAIDs: Meloxicam prescribed. She has tried Aleve. -Muscle relaxants: baclofen prescribed -Prednisone: no -Anticonvulsants: Discussed gabapentin but she declined -Antidepressants: no -Opioids: OARRS reviewed. She was given tramadol by the ER but this causes nausea and she would like to stay away from opioids. X-ray lumbar spine and left hip and pelvis Updated blood work Physical therapy for the low back, lumbar radicular symptoms, and left SI joint pain. Evaluate and treat up to 12 sessions. Consider aquatic PT. Schedule HERNANDEZ. Home exercises for the low back and the hip Follow up in 2 weeks due to the acute pain. Review of Systems: Constitutional: Positive for difficulty sleeping Skin: Negative. HENT: Negative. Eyes: Negative. Cardiovascular: Negative. Respiratory: Negative. Gastrointestinal: Positive for constipation Genitourinary: Negative. Musculoskeletal: Positive for back pain, hip and leg pain Neurological: Positive for numbness/tingling in extremities Lymph/Heme: Negative. Endocrine: Negative. Nursing Assessment: Pain location: Low back, left hip and leg pain Pain ratin/10 Pain aggravated by: sitting, standing, being in bed Numbness or tingling in arm or leg? yes Ten or more systems were reviewed and were negative other than as listed elsewhere in this note. IMAGING/STUDIES: XR Lumbar spine 08/20/16 REPORT:1. Unchanged appearance of mild degenerative change and minimal chronic vertebral body height loss in the lower thoracic and lumbar spine as above. 2. Calcified atheromatous plaque. LABS: Outside blood work from [facility] 12/30/17: AST 17, ALT 24, creatinine 0.86, platelets 249 She has a past medical history of Congestive heart failure, Essential hypertension, benign, Hyperlipidemia, and Hyperthyroidism. Problem list: does not have a problem list on file. She has a past surgical history that includes cholecystectomy; tubal ligation; foot surgery (Right); knee surgery (Right); and endoscopy carpal tunnel release (Bilateral). Family History Problem Relation Age of Onset Diabetes Sister Other - Specify Sister COPD Social History Tobacco Use Smoking status: Former Smoker Smokeless tobacco: Never Used Substance Use Topics Alcohol use: Not Currently Drug use: Never She has a current medication list which includes the following prescription(s): carvedilol, docusate calcium, furosemide, levothyroxine, ondansetron, oxybutynin, pravastatin, and tramadol. She is allergic to asa [aspirin]; codeine; fluoxetine; miconazole; neurontin [gabapentin]; and penicillins. The above report was entered using [employer] voice recognition medical dictation software. Although I have reviewed this report for accuracy, certain words and phrases may not be entered as intended. * Stephanie Maria - 09/16/2018 8:00 AM EDT documented in this encounter* Caimla Olson, PT - 09/26/2018 9:11 AM EDT PHYSICAL THERAPY LUMBAR & THORACIC INITIAL EVALUATION Date: 09/26/2018 Physician: Marjorie Mccullough DO Next Visit: 10-07-18 Liz Bro 1950 Medical Diagnosis: 1. Lumbosacral radiculopathy 2. Sacroiliac joint pain 3. Pain of left hip joint 4. Trochanteric bursitis of left hip HISTORY: Liz Bro is a 68 y.o. patient who presents to our clinic with Chief Complaint of LBP and hip pain. Pt unable to lay on left side due to hip pain. LBP and hip pain onset simultaneously 2-3 weeksago. Bilateral LBP, and down BLE (posterior aspect); L>R. Pt reprots she was unable to sleep for3 days due to pain, this is when she went to the ER, and was referred to Dr. Mccullough. Saw Dr. Mccullough for LBP/hip pain at the end of August. Pt reports she has a weak bladder when inquired about her LE swelling; takes a water pill for the swelling. No NT in BLE, just pain; cramping in entire LE (A/P, and down to feet). Pt also repots Asthma and COPD, sleeps with C-PAP. How many falls in the last 12 months: 0 Any injury resulting from fall: [x] Yes: [] No : left shoulder, no doctors visit. Contributing factor to fall(s): [] Home fall hazard: [] Postural BP; [] Vision; [] Medication Frequent LOB throughout the last year, pt has most likely diabetic neuropathy reported by pt, reports she has borderline diabetes. Symptom Intensity: Currently: 0/10 Ranges: 0-6/10 Symptom Frequency (% of Day) 50% Pt reports it has calmed down a l lot since onset. Takes a muscle relaxor to sleep. Worse with standing and at night. 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 Onset/Date of Injury/Surgery: 3 wks ago Length of Diminished Function: 3 wks Mechanism of Injury: []Trauma: []Surgery: [x]Insidious Onset: started all of the sudden, denies any injury or event. Symptom Behavior: Worse: Sit/Drive: 60' max, Stand: 10' max, Walk: 10' max, Sleep Disturbances: only able to sleep 2 hrs at a time at most, sleeping in the recliner due to increased sx in bed. [x] Flexion, [x] Extension, Other: Standing, walking. Better: [] Flexion, [] Extension, [x] Change of Position, Other: Muscle relaxor, sitting, apsercreme. Tests: [x] X-Ray, [] MRI, [] Bone Scan, Results: No acute fracture, malalignment, or instability. 2. Moderate multilevel spondylosis with 3 mm degenerative anterolisthesis of L4 on L5. No acute osseous abnormality. 2. Mild left hip osteoarthrosis. 3. Mild enthesopathic change of the greater trochanter. Past Medical History/Medication List: Past Medical History: Diagnosis Date Congestive heart failure Essential hypertension, benign Hyperlipidemia Hyperthyroidism Outpatient Medications Prior to Visit Medication Sig Dispense Refill acetaminophen 500 MG Tab tablet 1-2 pills po q 8 hrs prn pain. Max 3000 mg/d including amount in other medicines. 180 tablet 1 baclofen 10 MG Tab tablet 1/2 pill po at bedtime. Can increase by 1/2 pill every 3 days up to max of 2 pills po at bedtime. Don't stop abruptly. 30 tablet 1 carveDILOL 12.5 MG Tab tablet Take 25 mg by mouth 2 times daily with meals. Docusate Calcium (STOOL SOFTENER PO) Take by mouth. furOSEmide 40 MG Tab tablet Take 40 mg by mouth daily. levothyroxine 50 MCG Tab tablet Take 50 mcg by mouth daily. meloxicam 7.5 MG Tab 1-2 pills po every day w food prn pain. Stop if persistent stomach pain. 30 tablet 1 ondansetron 4 MG Tab Dispersible tablet Take 1 tablet by mouth every 4 hours as needed for Nausea. Place on tongue 10 tablet 0 oxybutynin 5 MG Tab Take 5 mg by mouth 3 times daily. pravastatin 20 MG Tab tablet Take 40 mg by mouth daily. No facility-administered medications prior to visit. Prior Level of Function: [x] Independent with ADL, [] Required Ambulatory Assistive Device, [] Hoist Worker, [] Difficulty or Inability to Negotiate Stairs, Regularly Performed Activities: independent stair ngotiation, due to vision deficits unable to drive. Home Environment: Required Steps to Safely Function at Home: [x] 1 story, [] 2 story, [] + basement Handrail: [] Yes,[x] No 1 SE, no HR Occupation or Student: [] Employed, [] Retired, [] Homemaker, [] Student, [x] Disabled: SS income. Current Functional Limitations: [x] High pain levels and/or dependence on medication to control pain; [] Difficulty performing work; [] Difficulty sustaining static positions (sit, read and drive); [x] Disturbed sleep; [x] Difficulty with ADL (tub transfers, uses shower stool. ); [x] Difficulty perf orming prior household management tasks; [] Difficulty performing prior family care tasks; [x] Difficulty performing prior level of exercise, travel, and/or recreational activities; [x] Poor balance/fall risk Patient Goals: [x] Abolish Sx, [x] Return to Prior Level of Function PHYSICAL FINDINGS: Posture: Sitting/Standing: [] Good; [] Fair; [x] Poor Lordosis: [x] Reduced; [] Accentuated [x] Unable to sustain static positions during subjective questioning, [x] Slow, guarded position changes, [] Expressions of facial grimacing with position changes, Gait/Balance (Fall Risk): [] Normal Gait Pattern: [x] Antalgic; [x] Slow guarded gait; [x] Increased frontal plane sway [] Walks with Forward, flexed position of trunk [] Trendelenberg [] Foot Drop Fall Risk Tests: [] NA No obvious signs of LOB during visit; will assess PRN. Abnormal Lumbar & Thoracic AROM: [] Lumbar and Thoracic ROM WFL Lumbar Pain During Movement End Range Pain % ROM Limitation Flexion [x] [] [] WFL 37cm Extension [x] [] [] WFL 6 Side Bend [] [x] [] [] [] WFL R: 46cm L: 29cm Supine Core Strength Deferred due to positioning limitations Upper core: [] Normal [] Unable to clear inferior angle Lower core: [] Normal [] Premature arching of lumbar spine Hip ROM & Strength: [] WFL *pain with movement STRENGTH (0-5 Scale) (R) (L) [x]AROM []PROM (degrees) [] WFL (R) (L) Flexion (Norm = 120 ) 4+ 4- * Grossly limited Abduction (Norm = 150 ) 4+ 4+ Grossly limited External Rotation (Norm = 45 ) 4+* 4* Knee pain bilaterally L>R (OA) 30* 25 Internal Rotation (Norm = 35 ) 4+* 4* Knee pain 18 22 Knee Flexion-Extension 4 3+* Knee pain Left limited due to knee pain Repeated Movement Testing: [x] NT or N/A Extension: [] Lying, [] Standing [] Better, [] Worse, [] No Effect Flexion: [] Lying, [] Standing [] Better, [] Worse, [] No Effect Neurological Assessment: [] NT or N/A Motor Deficit(s): [] LE Myotome Screen; Sensory Deficit(s): [x] LE Dermatomes Light Touch; L4, L5, S1 diminished to Light touch. Abnormal Reflex(es): [] Patellar and Heel Cord; Adverse Neural Symptoms (Slump, SLR): [x] Slump and SLR; (-)[] Other: Abnormal or Pain with Palpation/Testing; [] Normal Palpation Spinous Process: Lateral Hip: [] Left, [] Right; (-) Piriformis: [] Left, [] Right; (-) Iliopsoas: [] Left, [] Right; Iliac Crest: [] Left, [] Right; (-) ASIS: [] Left, [] Right; PSIS: [x] Left, [] Right; SI Joint: [] Left, [] Right; Ischial Tuberosity: [] Left, [] Right; (TTP graded out of 3+) NOTES: unable to accurately palpate ASIS bilaterally in standing due to increased central adiposity. Limited Flexibility: unable to formally test due to poor tolerance to positioning needs for formal testing. Plan to assess as able. HS [] (R) [] (L) Quad [] (R) [] (L) Psoas [] (R) [] (L) Calf [] (R) [] (L) Piriformis [] (R) [] (L) Hip IRs [] (R) [] (L) ITB/Abductors [] (R) [] (L) Adductors [] (R) [] (L) Paraspinals [] (R) [] (L) Pec major [] (R) [] (L) Pec minor [] (R) [] (L) UT [] (R) [] (L) LS [] (R) [] (L) Pelvic Posture: [x] Standing, [] Supine/prone Iliac crest: [] Elevated Left, [] Elevated Right;[x] Level ASIS: [] Elevated Left, [] Elevated Right;[] Level PSIS: [] Elevated Left, [] Elevated Right; [] Level Sacral Sulcus: [] Superficial Left, [] Superficial Right; [] Level; DANIEL: [] Superficial Left, [] Superficial Right; [] Level Special Testing: [] Normal Testing: Note: Unable to formally and thoroughly assess due to limitations in positioning; plan to assess asable. GARY's: [] Left, [] Right; FADIR's: [] Left, [] Right; Femoral Grind: [x] Left, [] Right; Passive SLR: [] Left, [] Right; Contralateral SLR: [] Left, [] Right; Spring Test: Prone Knee Flexion: [] Left, [] Right; Leg Length Discrepancy: Left ___ cm, Right ___ cm : [] NA Slump test(-). Modified brudzinski test (+) LLE SIJ screen: Unable to test due to positioning/standing limitations. Static Positioning: [] NA : Unable to lay supine due to dizziness since ear infection a few years ago. Unable to lay SL due to hip pain. Initial Treatment(s) and Charge(s): [x] Reviewed prognosis, anatomy, biomechanics and rehabilitation process; Discussed goals and plan of care [] HEP - Provided and Completed VHI Handout addressing: [] ROM/Flexibility; [] Strength; [] Balance; [] Gait [] Therapeutic Exercise: [] Neuro RE-education: [] Manual Therapy: [] Modalities [] Consultation with Healthcare Professional; Name/Reason: ASSESSMENT: Clinical Presentation: [] Stable [x] Evolving [] Unstable Clinical Decision Making Complexity: [] Low [] Moderate [] High Therapy Goals [To be completed within 4 week(s), or 12 visit(s)]: 1. The patient will safely, correctly, and independently demonstrate the ability to perform a progressive HEP to achieve maximum rehabilitation potential and prevent this condition from recurring. 2. The patient will reduce present VAS pain to 0-1/10 to decrease dependence on medication. 3. The patient will return to prior sleep positions and patterns without disturbances due to the present symptoms of this condition. 4. The patient will demonstrate normal transfer and bed mobility ability (sit to and from stand, sit to and from supine, scooting and rolling) to return to prior level of function. 5. The patient will demonstrate functional pain free spinal AROM and at least good strength in coreand LE musculature to assist with prior household management tasks, sustaining static positions, stair negotiation, ambulation, family care tasks, work, and or ADL. 6. The patient will demonstrate safe body mechanics with desired lifting, pushing, and pulling tasks to prevent re-injury and assist with return to prior level of function. 7. The patient will score at least 10% higher on the Oswestry Outcomes Questionnaire to achieve an improved functional change in status. 8. Reduce fall risk by recognizing and educating on contributing factors including home environment, current health status, and mobility limitations. Prognosis: The rehab potential to achieve the above goals and expected functional outcomes is: [x] Good, [] Fair, [] Poor Plan: Initially, the patient will be seen 2-3 times per week for 4 week(s), or 12 visit(s). Furtherphysical therapy beyond the original physician order may be necessary to achieve all therapy goals.The patient treatment program may include: 1. Therapeutic Exercise 2. Gait Training 3. Neuromuscular Re-Education 4. Manual Therapy 5. Modalities as Indicated Initial Treatment Plan: [x] Flexion Based DLSP; [] Extension Progression; [x] Core Stabilization; [x] Restore Lumbar ROM; [] Restore Thoracic ROM; [x] Restore Hip ROM; [x] Control Acute Pain/Inflammation; [] Heel Lift; [] Tone Inhibition, [x] Postural Training, [] Correct Pelvic posture Falls Plan (if applicable): [] Provide or consider device; [x] Balance, strength, gait training; [] Fall prevention education regarding contributing factors Discharge Plan: The patient will be discharged upon achievement of the above goals and expected functional outcomes, the patient declines to continue care, or the PT determines that intervention is no longer warranted. Thank you for this referral and your continued support of our clinic here at [facility]. Camila Olson, PT, 09/26/2018 documented in this encounter* Camila Olson, PT - 10/03/2018 9:58 AM EDT Physical Therapy Daily Treatment Note 10/03/2018 Diagnosis: ICD-10-CM 1. Lumbosacral radiculopathy M54.17 2. Sacroiliac joint pain M53.3 3. Pain of left hip joint M25.552 4. Trochanteric bursitis of left hip M70.62 Chief Complaint Patient presents with Back Pain Hip Pain Total Visits Attended: 3 Visit(s)/12 Frequency: 2-3x/week Duration: 4 weeks Total Visits Authorized: Medical Authorized End Date: 10/24/18 Subjective: Patient reports her knee is bothering her today, LBP/hip pain okay right now, increasesduring the night. Pain: 5/10 Low back and left hip Objective/Comparable Signs: Decreased stance phase time on LLE during ambulation with frontal plane trunk deviation. Therapeutic Exercise (MELISSA) Nu Step (Level) 8' + set-up (level 3) ITB stretch Figure 4 hip stretch Quad stretch HS stretch - seated 10x10 each Hip flexor stretch SKTC/DKTC Lumbar ROM - seated a. Rot b. Ext c. FLex a. 10x3 C. 1x10 Pelvic Tilts on SGB Abdominal Bracing: all seated 10x10 August 2x10 Kick 2x10 Walk outs SLR Opposite UE/LE 2x10 Seated scap squeezes 2x10 Seated rows TB x10 RTB Alt. Isometric @ [facility] Alt isometric trunk ROT Slow reversals @ [facility] Bridges Hip ABD TB/Hip ADD 2x10x3 each; yellow TB w/ ABD Neuromuscular Re-education (Nm): Standing hip 3-way TB chops/lifts, pulls TB lateral stepping TB UE pumps TB ROT Manual Therapy: Joint Mobs: T/S; L/S a. P/A; b. Unilateral STM Modalities: IFC ESTIM MHP with exercises Assessment/Response to Treatment: Minor cues for staying within pain-free ROM with exs. Cues also given to isolate TA contraction vs compensatory chest expansion. Split up seated abdominal bracing exs into 2 sets of 10 to re-engage TA for better proprioception and modify for fatigue. Alternated sets of LE/US exs to allow for LE vs UE rest. Plan for Next Visit: Continue to progress hip and core strengthening in seated as tolerated. Therapist Signature: Camila Olson PT Time in: 1000 Time out: 1045 Total Visit Time: 45 Min Total Treatment Time: 45 minutes Timed Code Treatment Minutes: 45 minutes Overall PT Visit Number: 3 Visit(s) PT G-Code Visit Number: 3 G-Code Visit(s) x3 [x] Therapeutic Exercise 03331 [] Neuromuscular Reeducation 57659 [] Manual Therapy 41807 [] Mechanical Traction 63519 [] Gait Training 46540 [] Iontophoresis 94229 [] Ultrasound 86913 [] Electric Stimulation 97284 documented in this encounter* Marjorie Mccullough, DO - 10/07/2018 10:00 AM EDT PATIENT IDENTIFICATION: 68 y.o. female with a history of CHF, diabetes, diabetic neuropathy, obesity, right total knee arthroplasty, lower extremity cellulitis, who was referred by Dr. Gonzalez in [facility] for low back and left lower extremity discomfort that started and early to mid August 2018 with no particular inciting event. Chief Complaint Patient presents with Back Pain [place]: LBP and L LE posterior thigh pain and paresthesia. Bilateral distal lower extremity paresthesia in a stocking pattern distal to the knees consistent with her history of diabetic neuropathy. The patient's family/friend () was present and supplemented the history. PHYSICAL EXAM: Height 1.676 m (5' 6 ), weight (!) 145.2 kg (320 lb). EOMI General: no acute distress Neuro: Lower extremity strength: Pain inhibited for left EHL. She stubbed her toe recently. 4 out of 5 left ankle dorsiflexion. This is an improvement. Lower extremity sensation: Diminished to light touch in a stocking pattern distal to her knees consistent with her history of diabetic neuropathy. She has some numbness in the left posterior thigh. Straight leg raise is negative on the left. Spurling's is somewhat positive on the left. SI joint provocative tests are positive on the left Palpation: Tender to palpation of the left PSIS. IMAGING/LABS/STUDIES: reviewed as available below IMPRESSION: Left lumbosacral radiculopathy with weakness in the left ankle dorsiflexors. Positive Spurling's maneuver on the left. Some improvement with physical therapy. Improved left ankle dorsiflexion strength today. Left SI joint pain. Mild left greater trochanteric bursitis PLAN: Medication management: I reviewed their medications and discussed options with her. -Acetaminophen: When necessary. That does help some. -NSAIDs: Meloxicam prescribed previously. No refills needed. She has tried Aleve. -Muscle relaxants: baclofen prescribed previously. No refills needed. -Prednisone: no -Anticonvulsants: We decided to try gabapentin: 100 mg 1 po qd. It is on her allergy list but she tells me it just made her feel drunk. She would like to try it again at a lower dose. She will try itduring the day when other people are around so she can see how she responds to it. She denies any allergy symptoms with that medicine. It was with a 500 mg pill that she tells me she was taking. I removed gabapentin from her allergy list with her permission. She knows to stop the medicine if it makes her feel bad again or if she has any adverse reaction. -Antidepressants: no -Opioids: OARRS reviewed. She was given tramadol by the ER but this causes nausea and she would like to stay away from opioids. More physical therapy for the low back, lumbar radicular symptoms, and left SI joint pain. Evaluateand treat up to 12 more sessions. She's not interested in medicines yet. Follow-up in about 2 weeks to see if she's doing on the gabapentin and other treatment. We may needto move to an MRI still has weakness and persistent significant pain on the left leg. ROS: Negative for fever/chills Positive for numbness/tingling in extremities Pain location: Low back, left leg Pain ratin/10 Pain aggravated by: sitting Numbness or tingling in arm or leg? yes IMAGING/STUDIES: XR Lumbar spine 09/16/18: Upon my review of the images, I noted Moderate disc thinning at L5-S1. Moderate to severe L5-S1 facet joint degenerative change. Moderate L4-5 facet joint degenerative change. REPORT:1. No acute fracture, malalignment, or instability. 2. Moderate multilevel spondylosis with 3 mm degenerative anterolisthesis of L4 on L5. XR Hip left 09/16/28: Upon my review of the images I noted mild-moderate thinning of the joint spacein the bilateral hip joints. REPORT:1. No acute osseous abnormality. 2. Mild left hip osteoarthrosis. 3. Mild enthesopathic change of the greater trochanter. XR Lumbar spine 08/20/16 REPORT:1. Unchanged appearance of mild degenerative change and minimal chronic vertebral body height loss in the lower thoracic and lumbar spine as above. 2. Calcified atheromatous plaque. LABS: Outside blood work from [facility] 12/30/17: AST 17, ALT 24, creatinine 0.86, platelets 249 Lab Results Component Value Date ALT 17 09/22/2018 AST 22 09/22/2018 CREATSERUM 0.7 09/22/2018 PLATELET 241 09/22/2018 She has a past medical history of Congestive heart failure, Essential hypertension, benign, Hyperlipidemia, and Hyperthyroidism. Problem list: does not have a problem list on file. She has a past surgical history that includes cholecystectomy; tubal ligation; foot surgery (Right); knee surgery (Right); and endoscopy carpal tunnel release (Bilateral). Family History Problem Relation Age of Onset Diabetes Sister Other - Specify Sister COPD Social History Tobacco Use Smoking status: Former Smoker Smokeless tobacco: Never Used Substance Use Topics Alcohol use: Not Currently Drug use: Never She has a current medication list which includes the following prescription(s): carvedilol, docusate calcium, furosemide, levothyroxine, ondansetron, oxybutynin, pravastatin, and tramadol. She is allergic to asa [aspirin]; codeine; fluoxetine; miconazole; neurontin [gabapentin]; and penicillins. The above report was entered using [employer] voice recognition medical dictation software. Although I have reviewed this report for accuracy, certain words and phrases may not be entered as intended. * Stephanie Maria - 10/07/2018 10:00 AM EDT documented in this encounter* Camila Olson, PT - 10/11/2018 10:34 AM EDT Physical Therapy Daily Treatment Note 10/11/2018 Diagnosis: ICD-10-CM 1. Lumbosacral radiculopathy M54.17 2. Sacroiliac joint pain M53.3 3. Pain of left hip joint M25.552 4. Trochanteric bursitis of left hip M70.62 Chief Complaint Patient presents with PT Treatment Back Pain Total Visits Attended: 5 Visit(s)/12 Frequency: 2-3x/week Duration: 4 weeks Total Visits Authorized: Medical Authorized End Date: 10/24/18 Subjective: Patient her pain is high this AM and felt like she had to get out of bed sooner due to pain. Pain started this AM, denies flare up over the weekend of with holiday activities. Pain: 8/10 Low back and left hip Objective/Comparable Signs: Decreased stance phase time on LLE during ambulation with frontal plane trunk deviation. Therapeutic Exercise (MELISSA) Nu Step (Level) 8' + set-up (level 3) ITB stretch Figure 4 hip stretch Quad stretch HS stretch - seated 4x30 each Hip flexor stretch SKTC/DKTC Lumbar ROM - seated a. Rot b. Ext c. FLex a. 10x3 C. 1x10 3-way Pelvic Tilts on SGB Abdominal Bracing: all seated 10x10 August 1x10 Kick 1x10 Walk outs 1x10 SLR Opposite UE/LE 1x10 Seated scap squeezes 1x10 Seated rows TB x10 RTB Biceps curl MB 2#, 1x10 Alt. Isometric @ [facility] Alt isometric trunk ROT Slow reversals @ [facility] Bridges glute set 2x10 Hip ABD TB/Hip ADD 1x10x5 ADD; RTB w/ [id number] DL/SL Neuromuscular Re-education (Nm): Standing hip 3-way TB chops/lifts, pulls TB lateral stepping TB UE pumps TB ROT Manual Therapy: Joint Mobs: T/S; L/S a. P/A; b. Unilateral STM Modalities: IFC ESTIM Throughout completing therex. MHP with exercises Assessment/Response to Treatment: Continues to alternate sets of UE vs LE movement to compensate for fatigue. Minor cues for pain free ROM.decreased all exs to 1 set this date due to increased sx this AM. Trialed E-stim during session in order to tolerate therapeutic exs. Given RTB for HEP hip ABD/ADD. Plan for Next Visit: Continue to progress hip and core strengthening in seated as tolerated. Therapist Signature: Camila Olson, PT Time in: 1030 Time out: 1115 Total Visit Time: 45 Min Total Treatment Time: 45 minutes + 10' CP Timed Code Treatment Minutes: 45 minutes Overall PT Visit Number: 5 Visit(s) PT G-Code Visit Number: 5 G-Code Visit(s) x3 [x] Therapeutic Exercise 84481 [] Neuromuscular Reeducation 89565 [] Manual Therapy 97784 [] Mechanical Traction 98819 [] Gait Training 52475 [] Iontophoresis 20148 [] Ultrasound 46700 x1 [x] Electric Stimulation 04362 documented in this encounter* Camila Olson, PT - 10/13/2018 10:31 AM EDT Physical Therapy Daily Treatment Note 10/13/2018 Diagnosis: ICD-10-CM 1. Lumbosacral radiculopathy M54.17 2. Sacroiliac joint pain M53.3 3. Pain of left hip joint M25.552 4. Trochanteric bursitis of left hip M70.62 Chief Complaint Patient presents with PT Treatment Back Pain Total Visits Attended: 6 Visit(s)/12 Frequency: 2-3x/week Duration: 4 weeks Total Visits Authorized: Medical Authorized End Date: 10/24/18 Subjective: Patient her pain is better than last date, she has most pain at night. Last time, Electric stim really helped her sx. Pain: 5/10 Low back and left hip Objective/Comparable Signs: Decreased stance phase time on LLE during ambulation with frontal plane trunk deviation. Therapeutic Exercise (MELISSA) Nu Step (Level) 8' + set-up (level 3) ITB stretch Figure 4 hip stretch Quad stretch HS stretch - seated 4x30 each HOLD Hip flexor stretch SKTC/DKTC Lumbar ROM - seated a. Rot b. Ext c. FLex a. 10x3 C. 1x10 3-way Pelvic Tilts on SGB Abdominal Bracing: all seated 10x10 August 1x10 Kick 1x10 Walk outs 1x10 SLR Opposite UE/LE 1x10 Seated scap squeezes 1x10 Seated rows TB x10 RTB Biceps curl MB 2#, 1x10 Alt. Isometric @ [facility] trialed with shoulder pain-unable to complete. Alt isometric trunk ROT Slow reversals @ [facility] Bridges glute set 2x10 Hip ABD TB/Hip ADD 1x10x5 ADD; RTB w/ [id number] DL/SL Neuromuscular Re-education (Nm): abdominla bracnf in standing 10x10 , increased difficulty. Standing hip 3-way tap/step lateral x10 TB chops/lifts, pulls TB lateral stepping TB UE pumps TB ROT Manual Therapy: Joint Mobs: T/S; L/S a. P/A; b. Unilateral STM Modalities: IFC ESTIM Throughout completing therex. MHP with exercises Assessment/Response to Treatment: Pt continues to present with fatigue of quad and hip flexors withcurrent routine. Initiated some standing core strengthening this date with fait tolerance. Increased difficulty isolating abdominal bracing in standing position. Also unable to perform 3-way hip on Rt without setting foor down into a step motion; able to complete with correct form in LLE. Plan for Next Visit: Continue to progress hip and core strengthening in seated as tolerated. Therapist Signature: Camila Olson PT Time in: 1030 Time out: 1115 Total Visit Time: 45 Min Total Treatment Time: 45 minutes + 10' CP Timed Code Treatment Minutes: 45 minutes Overall PT Visit Number: 6 Visit(s) PT G-Code Visit Number: 6 G-Code Visit(s) x3 [x] Therapeutic Exercise 36590 [] Neuromuscular Reeducation 63500 [] Manual Therapy 67184 [] Mechanical Traction 93840 [] Gait Training 13259 [] Iontophoresis 37706 [] Ultrasound 69935 x1 [x] Electric Stimulation 36009 documented in this encounter* Marjorie Mccullough, DO - 10/18/2018 10:30 AM EDT PATIENT IDENTIFICATION: 68 y.o. female with a history of CHF, diabetes, diabetic neuropathy, obesity, right total knee arthroplasty, lower extremity cellulitis, who was referred by Dr. Gonzalez in [facility] for low back and left lower extremity discomfort that started and early to mid August 2018 with no particular inciting event. Chief Complaint Patient presents with Back Pain [place]: LBP and L LE posterior thigh pain and paresthesia. Bilateral distal lower extremity paresthesia in a stocking pattern distal to the knees consistent with her history of diabetic neuropathy. She is improving The patient's family/friend () was present and supplemented the history. PHYSICAL EXAM: Height 1.676 m (5' 6 ), weight (!) 147 kg (324 lb). EOMI General: no acute distress Neuro: Lower extremity reflexes: Absent despite facilitation. History of diabetic neuropathy. Lower extremity strength: 4 out of 5 left EHL. 4 out of 5 left ankle dorsiflexion. Lower extremity sensation: Diminished to light touch in a stocking pattern distal to her knees consistent with her history of diabetic neuropathy. She has some numbness in the left posterior thigh. Spurling's is mildly positive on the left. Straight leg raise is negative bilaterally. IMAGING/LABS/STUDIES: reviewed as available below IMPRESSION: Left lumbosacral radiculopathy with weakness in the left ankle dorsiflexors. Positive Spurling's maneuver on the left. Improving Left SI joint pain. Mild left greater trochanteric bursitis Moderate disc thinning at L5-S1. Moderate to severe L5-S1 facet joint degenerative change. Moderate L4-5 facet joint degenerative change. History of left knee pain PLAN: Medication management: I reviewed their medications and discussed options with her. -Acetaminophen: When necessary. That does help some. -NSAIDs: Meloxicam prescribed previously. No refills needed. She has tried Aleve. -Muscle relaxants: baclofen prescribed previously but she did not notice any benefit. She is not taking this currently because gabapentin helps her enough. -Prednisone: no -Anticonvulsants: She is doing well on gabapentin 100 m, 0, 1. It helps her sleep and she is not noticing any adverse effects. She is okay with the slightly increased risk for falls if she goes to the bathroom in the middle of night under the influence of the gabapentin. Her has not noticed any adverse effects of the gabapentin. The patient would like to continue with this. No refillsneeded at this time. -Antidepressants: no -Opioids: OARRS reviewed. She was given tramadol by the ER but this causes nausea and she would like to stay away from opioids. More physical therapy for the low back, lumbar radicular symptoms, and left SI joint pain. Evaluateand treat up to 10 more sessions. She's not interested in injections yet. No need for an MRI right now because she is not interested in injections or surgical consult. The patient was told that there is a risk of permanent nerve damage if we don't decompress the nerve soon enough. They are currently not interested in seeing a surgeon for this. Follow-up in about 4 weeks to see if she's doing on the gabapentin and other treatment. We may needto move to an MRI still has weakness and persistent significant pain on the left leg. ROS: Negative for fever/chills Negative for numbness/tingling in extremities Pain location: Low back, left leg Pain ratin/10 Pain aggravated by: standing,walking Numbness or tingling in arm or leg? no IMAGING/STUDIES: XR Lumbar spine 09/16/18: Upon my review of the images, I noted Moderate disc thinning at L5-S1. Moderate to severe L5-S1 facet joint degenerative change. Moderate L4-5 facet joint degenerative change. REPORT:1. No acute fracture, malalignment, or instability. 2. Moderate multilevel spondylosis with 3 mm degenerative anterolisthesis of L4 on L5. XR Hip left 09/16/28: Upon my review of the images I noted mild-moderate thinning of the joint spacein the bilateral hip joints. REPORT:1. No acute osseous abnormality. 2. Mild left hip osteoarthrosis. 3. Mild enthesopathic change of the greater trochanter. XR Lumbar spine 08/20/16 REPORT:1. Unchanged appearance of mild degenerative change and minimal chronic vertebral body height loss in the lower thoracic and lumbar spine as above. 2. Calcified atheromatous plaque. LABS: Outside blood work from [facility] 12/30/17: AST 17, ALT 24, creatinine 0.86, platelets 249 Lab Results Component Value Date ALT 17 09/22/2018 AST 22 09/22/2018 CREATSERUM 0.7 09/22/2018 PLATELET 241 09/22/2018 She has a past medical history of Congestive heart failure, Essential hypertension, benign, Hyperlipidemia, and Hyperthyroidism. Problem list: does not have a problem list on file. She has a past surgical history that includes cholecystectomy; tubal ligation; foot surgery (Right); knee surgery (Right); and endoscopy carpal tunnel release (Bilateral). Family History Problem Relation Age of Onset Diabetes Sister Other - Specify Sister COPD Social History Tobacco Use Smoking status: Former Smoker Smokeless tobacco: Never Used Substance Use Topics Alcohol use: Not Currently Drug use: Never She has a current medication list which includes the following prescription(s): carvedilol, docusate calcium, furosemide, levothyroxine, ondansetron, oxybutynin, pravastatin, and tramadol. She is allergic to asa [aspirin]; codeine; fluoxetine; miconazole; neurontin [gabapentin]; and penicillins. The above report was entered using [employer] voice recognition medical dictation software. Although I have reviewed this report for accuracy, certain words and phrases may not be entered as intended. * Stephanie Maria - 10/18/2018 10:30 AM EDT documented in this encounter* Camila Olson, PT - 10/24/2018 10:04 AM EDT Physical Therapy Daily Treatment Note 10/24/2018 Diagnosis: ICD-10-CM 1. Lumbosacral radiculopathy M54.17 2. Sacroiliac joint pain M53.3 3. Pain of left hip joint M25.552 4. Trochanteric bursitis of left hip M70.62 Chief Complaint Patient presents with PT Treatment Back Pain Total Visits Attended: 9 Visit(s)/12 Frequency: 2-3x/week Duration: 4 weeks Total Visits Authorized: Medical Authorized End Date: 10/24/18 Subjective: Patient reports pain is not bad today. Denies anything over the weekend that would havehelped. Pain localized to central LB that is described as burning and on fire. Pain: 3/10 Low back. Objective/Comparable Signs: Decreased stance phase time on LLE during ambulation with frontal plane trunk deviation. Patient reports she has been sleeping better the last week after her MD prescribed Gabapentin. Patient states she has difficulty with car transfers. Patient's hip flexion strength has from 4-/5 to /5 L LE and from 4+/5 to /5 R LE. Other tx completed this visit: IFC and CP to LB while on Nustep this visit. Therapeutic Exercise (MELISSA) Nu Step (Level) 15' (level 3) ITB stretch Figure 4 hip stretch Quad stretch HS stretch - seated 4x30 each HOLD Hip flexor stretch SKTC/DKTC Lumbar ROM - seated a. Rot b. Ext c. FLex a. 10x5 C. 1x10x5 3-way Pelvic Tilts on SGB Abdominal Bracing: seated on green SGB 10x10 August 1x10 Diagonal august over flat cone [id number] in chair. Kick 1x10 Walk outs 1x10 SLR Opposite UE/LE [id number] completed Seated scap squeezes HEP Seated rows TB 2x10 RTB-chair Biceps curl MB 3#, [id number] Bridges Glute sets HEP Hip ABD TB/Hip ADD 1x20x5 ADD; -chair RTB w/ ABD [id number] DL/SL Neuromuscular Re-education (Nm): abdominal bracing in standing 10x10 , increased difficulty. Standing hip 3-way tap/step lateral/posterior x10 TB chops/lifts, pulls TB lateral stepping TB UE pumps TB ROT Step up x5 BLE Manual Therapy: Joint Mobs: T/S; L/S a. P/A; b. Unilateral STM Modalities: IFC ESTIM x10' /c CP MHP with exercises Assessment/Response to Treatment: Initiated lateral august in sitting to simulate car transfer over small cone, had to modify to flat cone for LLE due to difficult/limited hip flexion in sitting. Pt reports it increases her LBP and hip pain however relieved when she rests. traditional straight planemarches do not elicit the same sx, however still more difficult in LLE. Difficulty maintaining poture on SGB and increased fatigue, therefore decreased reps to x10 for each activity for better form and tolerance. unable to perform step ups on LLE due to left knee pain from fall 3-4 months ago. Pt reports now tat the LBP started around the jorge alberto time as the fall. Noted able to perform un-modified ki cks rather than taps with 3-way hip exs this visit. Plan for Next Visit: Continue to progress hip and core strengthening in seated as tolerated. UpdateG-codes and POC next visit. Therapist Signature: Camila Olson PT Time in: 1000 Time out: 1045 Total Visit Time: 45 Min Total Treatment Time: 45 minutes + 10' CP Timed Code Treatment Minutes: 45 minutes Overall PT Visit Number: 9 Visit(s) PT G-Code Visit Number: 9 G-Code Visit(s) x2 [x] Therapeutic Exercise 90131 x1 [x] Neuromuscular Reeducation 65719 [] Manual Therapy 17029 [] Mechanical Traction 20551 [] Gait Training 07074 [] Iontophoresis 12885 [] Ultrasound 48342 [] Electric Stimulation 46724 documented in this encounter* Camila Olson, PT - 10/26/2018 10:04 AM EDT Physical Therapy Daily Treatment Note 10/26/2018 Diagnosis: ICD-10-CM 1. Lumbosacral radiculopathy M54.17 2. Sacroiliac joint pain M53.3 3. Trochanteric bursitis of left hip M70.62 4. Pain of left hip joint M25.552 Chief Complaint Patient presents with PT Treatment Back Pain Total Visits Attended: 10 Visit(s)/12 Frequency: 2-3x/week Duration: 4 weeks Total Visits Authorized: Medical Authorized End Date: 10/24/18 Subjective: Patient reports pain is a little bit more today but not bad. Reports 20% impairment remains. Pain: 4/10 Low back. Objective/Comparable Signs: Decreased stance phase time on LLE during ambulation with frontal plane trunk deviation. Patient reports she has been sleeping better the last week after her MD prescribed Gabapentin. Patient states she has difficulty with car transfers. Patient's hip flexion strength has from 4-/5 to /5 L LE and from 4+/5 to /5 R LE. Other tx completed this visit: IFC and CP to LB while on Nustep this visit. Therapeutic Exercise (MELISSA) Nu Step (Level) 15' (level 3) ITB stretch Figure 4 hip stretch Quad stretch HS stretch - seated 4x30 each HOLD Hip flexor stretch SKTC/DKTC Lumbar ROM - seated a. Rot b. Ext c. FLex a. 10x5 C. 1x10x5 3-way Pelvic Tilts on SGB A/P x20 Abdominal Bracing: seated on green SGB 10x10 March 1x10 Diagonal march over flat cone [id number] in chair. Kick 1x10 Walk outs 1x10 SLR Opposite UE/LE [id number] completed Seated scap squeezes HEP Seated rows TB 1x15 RTB-chair Biceps curl MB 3#, [id number] Bridges Glute sets HEP Hip ABD TB/Hip ADD 1x20x5 ADD; -chair GTB w/ ABD [id number] DL/SL ` abdominal bracing in standing 10x10 , increased difficulty. Standing hip 3-way tap/step lateral/posterior x10 TB chops/lifts, pulls TB lateral stepping TB UE pumps TB ROT Step up x5 BLE Manual Therapy: Joint Mobs: T/S; L/S a. P/A; b. Unilateral STM Modalities: IFC ESTIM x10' /c CP MHP with exercises Assessment/Response to Treatment: Less cuing for reps and sets required this visit. Increased resistance to GTB for hip ABD with no decreased sx. Pt is able to sleep better through the night only walking up ~3x/night, while it was more than that prior to start of therapy. Pt continues to struggle with bed mobility/care tranfers due to continued weakness. Plan for Next Visit: Continue to progress hip and core strengthening in seated as tolerated. Therapist Signature: Camila Olson PT Time in: 1000 Time out: 1100 Total Visit Time: 60 Min Total Treatment Time: 60 minutes Timed Code Treatment Minutes: 45 minutes Overall PT Visit Number: 10 Visit(s) PT G-Code Visit Number: 10 G-Code Visit(s) Functional Limitation: Mobility: Walking and moving around x3 [x] Therapeutic Exercise 90809 [] Neuromuscular Reeducation 30853 [] Manual Therapy 15387 [] Mechanical Traction 70886 [] Gait Training 71970 [] Iontophoresis 95522 [] Ultrasound 04976 x1 [x] Electric Stimulation 28912 documented in this encounter* Camila Olson, PT - 10/28/2018 10:11 AM EDT Physical Therapy Daily Treatment Note 10/28/2018 Diagnosis: ICD-10-CM 1. Lumbosacral radiculopathy M54.17 2. Sacroiliac joint pain M53.3 3. Trochanteric bursitis of left hip M70.62 4. Pain of left hip joint M25.552 Chief Complaint Patient presents with PT Treatment Back Pain Total Visits Attended: 11 Visit(s)/12 Frequency: 2-3x/week Duration: 4 weeks Total Visits Authorized: Medical Authorized End Date: 10/24/18 Subjective: Patient reports pain is pretty good this AM. Pain still comes and goes in intensity. Pain: 3/10 Low back. Objective/Comparable Signs: Decreased stance phase time on LLE during ambulation with frontal plane trunk deviation. Patient reports she has been sleeping better the last week after her MD prescribed Gabapentin. Patient states she has difficulty with car transfers. Patient's hip flexion strength has from 4-/5 to /5 L LE and from 4+/5 to /5 R LE. Other tx completed this visit: IFC and CP to LB while on Nustep this visit. Therapeutic Exercise (MELISSA) Nu Step (Level) 15' (level 3) ITB stretch Figure 4 hip stretch Quad stretch HS stretch - seated 4x30 each HOLD Hip flexor stretch SKTC/DKTC Lumbar ROM - seated a. Rot b. Ext c. FLex a. 10x5 C. 1x10x5 3-way Pelvic Tilts on SGB A/P x20 Abdominal Bracing: seated on green SGB 10x10 March 1x10 Diagonal march over flat cone [id number] in chair. Kick 1x10 Walk outs 1x10 Opposite UE/LE [id number] completed Seated scap squeezes HEP Seated rows TB 1x15 GTB-chair Biceps curl MB 3#, [id number] Bridges Glute sets HEP Hip ABD TB/Hip ADD 1x20x5 ADD; -chair GTB w/ ABD 3s12-16 DL/SL ` abdominal bracing in standing 10x10 , increased difficulty. Standing hip 3-way tap/step 1x10 TB chops/lifts, pulls Center chops x10 RTB TB lateral stepping TB UE pumps TB ROT Step up x5 BLE Manual Therapy: Joint Mobs: T/S; L/S a. P/A; b. Unilateral STM Modalities: IFC ESTIM x10' /c CP MHP with exercises Assessment/Response to Treatment: No increased sx with tx today. Improved lateral march over flat cone with less pain today however pt reports car trasnfers are still difficult due to knee joint issues. Plan for Next Visit: Progress hip and core strengthening in standing as able. Therapist Signature: Camila Olson PT Time in: 1009 Time out: 1047 Total Visit Time: 38 Min Total Treatment Time: 38 minutes Timed Code Treatment Minutes: 38 minutes Overall PT Visit Number: 11 Visit(s) PT G-Code Visit Number: 11 G-Code Visit(s) x3 [x] Therapeutic Exercise 41865 [] Neuromuscular Reeducation 16340 [] Manual Therapy 98826 [] Mechanical Traction 52783 [] Gait Training 88243 [] Iontophoresis 49360 [] Ultrasound 66955 x1 [x] Electric Stimulation 79764 documented in this encounter* Marjorie Mccullough, DO - 11/22/2018 11:30 AM EDT PATIENT IDENTIFICATION: 68 y.o. female with a history of CHF, diabetes, diabetic neuropathy, obesity, right total knee arthroplasty, lower extremity cellulitis, who was referred by Dr. Gonzalez in [facility] for low back and left lower extremity discomfort that started and early to mid August 2018 with no particular inciting event. Chief Complaint Patient presents with Back Pain [place]: She is doing a good bit better. Physical therapy is helping. She's not having any more pain down the left leg for the most part. The patient's family/friend ( and grandson) was present and supplemented the history. PHYSICAL EXAM: Height 1.676 m (5' 6 ), weight (!) 144.2 kg (318 lb). EOMI General: no acute distress Neuro: Lower extremity reflexes: Absent bilaterally. History of diabetic neuropathy. Lower extremity strength: 5 out of 5 left EHL. 5 out of 5 left ankle dorsiflexion. Much improved. 5out of 5 bilaterally in the lower extremities Lower extremity sensation: Diminished to light touch in a stocking pattern distal to her knees consistent with her history of diabetic neuropathy. No more numbness in the left thigh Spurling's is mildly positive on the left. Straight leg raise is negative bilaterally. IMAGING/LABS/STUDIES: reviewed as available below IMPRESSION: Nearly fully resolved left lumbosacral radiculopathy. Improving even more. Improved strength in the left lower extremity. Facetogenic low back pain Left SI joint pain. Mild left greater trochanteric bursitis Moderate disc thinning at L5-S1. Moderate to severe L5-S1 facet joint degenerative change. Moderate L4-5 facet joint degenerative change. History of left knee pain with history of OA, previously seen by Dr. Cuba. She tells me she has aknee replacement candidate. She no she can follow up with Dr. Cuba regarding her knee. Morbid obesity PLAN: Medication management: I reviewed their medications and discussed options with her. -Acetaminophen: When necessary. That does help some. -NSAIDs: Meloxicam prescribed previously. She says this does help but considering the potential side effects she would prefer not to have a refill -Muscle relaxants: baclofen prescribed previously but she did not notice any benefit. She is not taking this currently because gabapentin helps her enough. -Prednisone: no -Anticonvulsants: She is doing well on gabapentin 100 m, 0, 1. It helps her sleep and she is not noticing any adverse effects. I refilled this today. -Antidepressants: no -Opioids: OARRS reviewed. She was given tramadol by the ER but this causes nausea and she would like to stay away from opioids. More physical therapy for the low back, lumbar radicular symptoms, and left SI joint pain. Evaluateand treat up to 10 more sessions. Follow-up in about 6 weeks for recheck. ROS: Negative for fever/chills Negative for numbness/tingling in extremities Pain location: Low abck Pain ratin/10 Pain aggravated by: walking Numbness or tingling in arm or leg? no IMAGING/STUDIES: XR Lumbar spine 09/16/18: Upon my review of the images, I noted Moderate disc thinning at L5-S1. Moderate to severe L5-S1 facet joint degenerative change. Moderate L4-5 facet joint degenerative change. REPORT:1. No acute fracture, malalignment, or instability. 2. Moderate multilevel spondylosis with 3 mm degenerative anterolisthesis of L4 on L5. XR Hip left 09/16/28: Upon my review of the images I noted mild-moderate thinning of the joint spacein the bilateral hip joints. REPORT:1. No acute osseous abnormality. 2. Mild left hip osteoarthrosis. 3. Mild enthesopathic change of the greater trochanter. XR Lumbar spine 08/20/16 REPORT:1. Unchanged appearance of mild degenerative change and minimal chronic vertebral body height loss in the lower thoracic and lumbar spine as above. 2. Calcified atheromatous plaque. LABS: Outside blood work from [facility] 12/30/17: AST 17, ALT 24, creatinine 0.86, platelets 249 Lab Results Component Value Date ALT 17 09/22/2018 AST 22 09/22/2018 CREATSERUM 0.7 09/22/2018 PLATELET 241 09/22/2018 She has a past medical history of Congestive heart failure, Essential hypertension, benign, Hyperlipidemia, and Hyperthyroidism. Problem list: does not have a problem list on file. She has a past surgical history that includes cholecystectomy; tubal ligation; foot surgery (Right); knee surgery (Right); and endoscopy carpal tunnel release (Bilateral). Family History Problem Relation Age of Onset Diabetes Sister Other - Specify Sister COPD Social History Tobacco Use Smoking status: Former Smoker Smokeless tobacco: Never Used Substance Use Topics Alcohol use: Not Currently Drug use: Never She has a current medication list which includes the following prescription(s): carvedilol, docusate calcium, furosemide, levothyroxine, ondansetron, oxybutynin, pravastatin, and tramadol. She is allergic to asa [aspirin]; codeine; fluoxetine; miconazole; neurontin [gabapentin]; and penicillins. The above report was entered using [employer] voice recognition medical dictation software. Although I have reviewed this report for accuracy, certain words and phrases may not be entered as intended. * Stephanie Maria - 11/22/2018 11:30 AM EDT documented in this encounter* Camila Olson, PT - 12/07/2018 10:44 AM EDT Physical Therapy Daily Treatment Note 12/07/2018 Diagnosis: ICD-10-CM 1. Lumbosacral radiculopathy M54.17 2. Sacroiliac joint pain M53.3 3. Trochanteric bursitis of left hip M70.62 4. Pain of left hip joint M25.552 Chief Complaint Patient presents with PT Treatment Back Pain 1130 Total Visits Attended: 23 Visit(s)/12 + 12 (24) Frequency: 2-3x/week Duration: 4 weeks + 4 Weeks + 2 weeks Total Visits Authorized: Medical Authorized End Date: 12/09/18 Subjective: Pt reports LBP is more of a throbbing pain this date, localized only to back. Denies eleno leg pain except left knee pain from weather. Pt reports she is unable to lay supine not due to back but due to dizziness. Pt also reports care tranfers have improved greatly. 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 Pain: 2/10 low back, 5/10 left knee Objective/Comparable Signs: Patient's hip flexion strength has improved from 4-/5 to 4/5 L LE and remains 4+/5 on R LE. Patient's hip abduction strength. Patient's hip ER strength has improved from 4/5 to 4+/5 L LE and improved from 4+/5 to 5/5 R LE. Left knee flexion strength = 4+/5; Right knee flexion strength = 5/5. Left knee extension strength = 4-/5 (limited by pain). Right knee extension strength = 4+/5. Lumbar AROM: Flexion improved to 12 cm (fingertips to floor) L side bending = 44 cm; R side bending = 35 cm (fingertips to floor) (pain bilaterally) Extension = 10 degrees (decreased pain) LE AROM: Hip ER: L = 30 degrees, R = 22 degrees Hip IR: L = 12 degrees, R = 30 degrees Other TX completed this visit: None Therapeutic Exercise (MELISSA) Nu Step (Level) 15' (level 3) HS stretch - seated 4x30 HOLD Lumbar ROM - seated a. Rot b. Ext c. Flex a. 10x5 C. 1x10x5 3-way Pelvic Tilts on SGB A/P, side/side, CW, CCW x20 each Abdominal Bracing: seated on green SGB 10x10 March 1x15 Diagonal march over flat cone [id number] in chair. Kick 1x15 Opposite UE/LE 1x15 Seated rows TB 1x15 GTB-chair *not completed* Biceps curl MB 4#, [id number] *not completed* Hip ABD TB/Hip ADD - chair 1x15x5 each GTB w/ ABD Neuromuscular Re-ed Standing marching at hand rail 30x alternating Standing hip 3-way tap/step 1x15 Sidestepping at hand rail 2 laps; yellow TB (not completed) TB chops/lifts, pulls Center chops x10 RTB *not completed* Standing alternating isometrics with UE's 3x20 TB ROT 10x; red TB Step-taps 7 10x (not completed) Step-ups 2x5 BLE *not completed* Modalities: IFC ESTIM x10' /c CP post tx Assessment/Response to Treatment: Discussed Pt's progress and pt agrees to discharge after next visit. Pt demonstrates improved activation of TA in sitting positions. Pt continues to be limited in standing tolerance and activity due increased pain seen while performing standing exs in clinic.Improved Sitting posture and improved standing posture however continues to have pain with extension to neutral this date. Overall, pt improved form starting therapy, however has plateau in progress at thistime. Plan for Next Visit: Plan for discharge next visit to [facility]. Pt instructed to see physician with any worsening of pain. Therapist Signature: Camila Olson PT Time in: 1045 Time out: 1130 Total Visit Time: 45 Min Total Treatment Time: 45 minutes Timed Code Treatment Minutes: 45 minutes Overall PT Visit Number: 23 Visit(s) PT G-Code Visit Number: 23 G-Code Visit(s) x2 [x] Therapeutic Exercise 10003 x1 [x] Neuromuscular Reeducation 87396 [] Manual Therapy 55391 [] Mechanical Traction 25186 [] Gait Training 78176 [] Iontophoresis 75003 [] Ultrasound 21546 x1 [x] Electric Stimulation 87497 documented in this encounter* Camila Olson, PT - 12/09/2018 11:32 AM EDT Physical Therapy Daily Treatment Note 12/09/2018 Diagnosis: No diagnosis found. Chief Complaint Patient presents with Back Pain PT Summary 1130 Total Visits Attended: 24 Visit(s)/12 + 12 (24) Frequency: 2-3x/week Duration: 4 weeks + 4 Weeks + 2 weeks Total Visits Authorized: Medical Authorized End Date: 12/09/18 Subjective: Pt reports no back pain today but was painful yesterday. Continues to have difficulty with tanding tolerance. Car transfers much better than before therapy. Pain: 0/10 low back, 3/10 left knee Objective/Comparable Signs: Strength: Hip F: 5/5 BLE Hip ABD: 5/5 BLE Knee F: 4+/5 BLE Knee EXT: 4+/5 BLE Trunk: Flex, Ext, SB and ROT bilaterally WFL; no increased pain. Lumbar AROM: Flexion: 21 cm ERP L side bending = 37 cm; R side bending = 40 cm ERP Extension = 15 degrees Other TX completed this visit: Review of HEP only this date with other tests and measured indicated above. Therapeutic Exercise (MELISSA) Nu Step (Level) 15' (level 3) (not completed) Lumbar ROM - seated a. Rot b. Ext c. Flex a. 10x5 C. 1x10x5 3-way Pelvic Tilts on SGB A/P, side/side, CW, CCW x20 each Abdominal Bracing: seated on green SGB 10x10 August 1x15 Diagonal march over flat cone [id number] in chair. Kick 1x15 Opposite UE/LE 1x15 Seated rows TB 1x15 GTB-chair *not completed* Biceps curl MB 4#, [id number] *not completed* Hip ABD TB/Hip ADD - chair 1x15x5 each GTB w/ ABD Neuromuscular Re-ed (all NM not completed this date) Standing marching at hand rail 30x alternating Standing hip 3-way tap/step 1x15 Sidestepping at hand rail 2 laps; yellow TB (not completed) TB chops/lifts, pulls Center chops x10 RTB *not completed* Standing alternating isometrics with UE's 3x20 TB ROT 10x; red TB Step-taps 7 10x (not completed) Step-ups 2x5 BLE *not completed* Modalities: IFC ESTIM x10' /c CP post tx Assessment/Response to Treatment: 1. The patient will safely, correctly, and independently demonstrate the ability to perform a progressive HEP to achieve maximum rehabilitation potential and prevent this condition from recurring. ([] Met; [x] Partially Met; [] Not Met) 2. The patient will reduce present VAS pain to 0-1/10 to decrease dependence on medication. ([] Met; [x] Partially Met; [] Not Met) 3. The patient will return to prior sleeping positions and patterns without disturbances due to thepresent symptoms of this condition. ([x] Met; [] Partially Met; [] Not Met) 4. The patient will demonstrate normal transfer and bed mobility ability (sit to and from stand, sit to and from supine, scooting and rolling) to return to prior level of function. ([] Met; [x] Partially Met; [] Not Met) 5. The patient will demonstrate functional pain free spinal AROM and at least good strength in coreand LE musculature to assist with prior household management tasks, sustaining static positions, stair negotiation, ambulation, family care tasks, work, and or ADL.([] Met; [x] Partially Met; [] Not Met) 6. The patient will demonstrate safe body mechanics with desired lifting, pushing, and pulling tasks to prevent re-injury and assist with return to prior level of function.([] Met; [x] Partially Met;[] Not Met) 7. The patient will score at least 10% higher on the Oswestry Outcomes Questionnaire to achieve an improved functional change in status.NA 8. Reduce fall risk by recognizing and educating on contributing factors including home environment, current health status, and mobility limitations. ([] Met; [x] Partially Met; [] Not Met) Plan for Next Visit: Plan for discharge to independent HEP. Pt instructed to see physician with anyworsening of pain. HEP sheet given. Therapist Signature: Camila Olson PT Time in: 1130 Time out: 1220 Total Visit Time: 50 Min Total Treatment Time: 50 minutes Timed Code Treatment Minutes: 50 minutes Overall PT Visit Number: 24 Visit(s) PT G-Code Visit Number: 24 G-Code Visit(s) Functional Limitation: Mobility: Walking and moving around x2 [x] Therapeutic Exercise 44494 [x] Neuromuscular Reeducation 03101 [] Manual Therapy 07812 [] Mechanical Traction 83888 [] Gait Training 18239 [] Iontophoresis 24852 [] Ultrasound 23267 x1 [x] Electric Stimulation 43371 documented in this encounter* Marti Robison RN - 06/09/2019 11:[address] Hurley regarding patient prescriptions to be signed for discharge, he stated that he will call his office and the office will call her prescriptions to her pharmacy and that it is okay for patient to discharge. * Marilyn Pantoja MD - 06/09/2019 10:31 AM EST 06/06/2019 Patient Name: Liz Bro Admit Date: [id number] MR #: [id number] : 1950 Physicians: Paul Hurley MD (Family); No ref. provider found (Referring) Assessment and Plan: Impression New venous dermatitis Bilateral lower extremity cellulitis Bilateral venous insufficiency History of pulmonary edema Right prosthetic knee History of allergy to penicillin with nausea Patient on statin watch for interaction with Diflucan New candidiasis of skin New complaint of burning with Aldo bandages Plan DC Diflucan DC Ancef P.o. Keflex 500 twice daily for 1 week Tubigrip to the lower extremities Follow-up in the wound clinic on 19 June at 10:45 AM Tubigrip to both lower extremities during the daytime Previous note Diflucan 200 mg p.o. daily continue last dose will be tomorrow Lotrisone to the right and left leg skin once a day Aldo bandage to both lower extremities for venous insufficiency swelling to be discontinued because she complained of burning with the Aldo bandages will go back to Tubigrip I Change Ancef 2 g IV every 8h for complete resolution by Wednesday Arterial Dopplers KELTON normal Venous Dopplers negative for DVT Discontinue all dressings Aldo bandage with Lotrisone Consider Unna compression bilaterally in the wound clinic on follow-up if needed Right and left leg cultures normal mariela Blood cultures no growth We will plan discharge tomorrow if possible on no p.o. antibiotics as the lower extremities are appearing much better She will follow-up with Dr. Joseph in the wound clinic on this Wednesday Chief Complaint/Reason for Visit: I am seeing this patient at the request of Dr. Marilyn MD. I have reviewed the current hospital record, available laboratory, cardiology and imaging studies as well as available out patient records. History of Present Illness: Admission H&P by Dr. Marilyn MD on 06/03/2019 Liz Bro is a 69 y.o. female presenting from doctor's office with a cellulitis of the lower extremities unresolved for several months. Had a trial of oral antibiotic, failed outpatient treatment. Elderly white female states that since March she had right and left anterior leg area blisters was seeing Dr. 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 Exam: Tmax: 98.3 Urine Output: 1300 Stool: not recorded PACU Vitals 06/09/19 0812 BP: 135/78 Pulse: 63 Resp: 16 Temp: 97.3 F (36.3 C) SpO2: 93% Allergies: Antifungal - imidazole; Aspirin; Codeine; Fluoxetine hcl; and Salicylates Current Facility-Administered Medications: acetaminophen (TYLENOL) tablet 650 mg, 650 mg, Oral, 4x Daily PRN, Abilio Sanders MD, 650mg at 06/09/19 0055 carvedilol (COREG) tablet 25 mg, 25 mg, Oral, BID, Abilio Sanders MD, 25 mg at 06/09/19 0817 ceFAZolin (ANCEF) IVPB 2 g (premix), 2,000 mg, Intravenous, Q8H, Marilyn Pantoja MD, Stopped at 06/09/19 0640 clotrimazole-betamethasone (LOTRISONE) cream, , Topical, BID, Marilyn Pantoja MD docusate sodium (COLACE) capsule 100 mg, 100 mg, Oral, Daily, Abilio Sanders MD, 100 mg at 06/09/19 0817 enoxaparin (LOVENOX) syringe 40 mg, 40 mg, Subcutaneous, Q12H KEATON, Paul Hurley MD, 40 mg at 06/09/19 0818 fluconazole (DIFLUCAN) tablet 200 mg, 200 mg, Oral, Daily, Marilyn Pantoja MD, 200 mg at 06/09/19 08 furosemide (LASIX) tablet 40 mg, 40 mg, Oral, Daily, Paul Hurley MD, 40 mg at 06/09/19 08 gabapentin (NEURONTIN) capsule 100 mg, 100 mg, Oral, Nightly, Abilio Sanders MD, 100 mg at 06/08/19 2224 naloxone (NARCAN) injection 0.1 mg, 0.1 mg, Intravenous, PRN AND Notify physician, , , Until Discontinued AND naloxone (NARCAN) injection 0.4 mg, 0.4 mg, Intravenous, PRN, Abilio Sanders MD oxybutynin (DITROPAN) tablet 5 mg, 5 mg, Oral, BID, Abilio Sanders MD, 5 mg at 06/09/19 08 potassium chloride (KAYCIEL) 20 mEq/15 mL solution 40 mEq, 40 mEq, Oral, TID, Paul Hurley MD, 40 mEq at 06/09/19 08 pravastatin (PRAVACHOL) tablet 40 mg, 40 mg, Oral, Daily, Abilio Sanders MD, 40 mg at 06/08/19 2225 spironolactone (ALDACTONE) tablet 25 mg, 25 mg, Oral, Daily, Paul Hurley MD, 25 mg at 06/09/19 0817 PMH/PSH/SH/FH reviewed, no change except: She is in the hospital receiving IV antibiotics Review of Systems: All systems were reviewed and negative except: Denies any pain in the lower extremities denies any diarrhea Medications Reviewed. Chart Reviewed. Constitutional: Awake alert answers all HENT: Pupils reactive Head: No oral candidiasis Eyes: No icterus Neck: Supple Cardiovascular: Heart S1-S2 2 x 6 systolic murmur present no S3 Murmur Pulmonary/Chest: No crackles at the bases she has a history of pulmonary edema in the past Abdominal: Obese soft bowel sounds present Musculoskeletal: Right knee prosthesis no redness noted no calf tenderness Neurological: She has neuropathy etiology unclear she is borderline diabetic bilateral lower extremities neuropathy Skin: Right and left leg cellulitis has resolved completely wound: The right and left leg anterior area there were blisters before I do not see any open ulceration now They have healed up and stayed healed Candidiasis of the skin present improving with Lotrisone Strong: IV: Right forearm site looks good Other: Decreased pulses right and left foot KELTON was normal Laboratory and Additional Data Reviewed: Date: 06/09/2019 New labs/ results as of last note T-Max: 98.1 Output: Urine 1100 ml Stool not recorded Current antibiotic: Ancef 2 grams IV every 8 hours Radiology: 06/08/2019 - CT Right Shoulder FINDINGS: There is no acute fracture or dislocation. Glenohumeral alignment is maintained. Mild arthritic disease of the AC joint without subluxation. No indication of rotator cuff atrophy. There are subchondral cysts at the insertion of the supraspinatus. IMPRESSION: 1. 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 2. There is evidence of chronic mild rotator cuff tendinopathy. No evidence of muscle atrophy. Update from previous note Current Cultures: 06/05/2019 Blood Culture #2: In Progress; No Growth after 48 hours. Preliminary. 06/05/2019 Blood Culture #1: In Progress; No Growth 48 hours. Preliminary. 06/02/2019 Left Leg Wound Aerobic Culture: No Growth After 48 Hours. Final. 06/02/2019 Right Leg Wound Aerobic Culture: Normal Mariela After 48 Hours. Final. Date:06/08/2019 New labs/ results as of last note T-Max: 97.9 Output: Urine 1750 ml Stool not recorded Current antibiotic: Ancef 2 grams IV every 8 hours Radiology: 06/08/2019 - CT Right Shoulder - results pending 06/08/2019 - Chest x-ray FINDINGS: Frontal and lateral views of the chest are submitted. The cardiomediastinal silhouette is enlarged, stable. Lungs, pleural spaces and pulmonary vasculature are normal. No acute osseous lesions are seen. IMPRESSION: 1. No acute cardiopulmonary abnormality. 2. Stable cardiomegaly. Update from previous note Current Cultures: 06/05/2019 Blood Culture #2: In Progress; No Growth after 48 hours. Preliminary. 06/05/2019 Blood Culture #1: In Progress; No Growth 48 hours. Preliminary. 06/02/2019 Left Leg Wound Aerobic Culture: No Growth After 48 Hours. Final. 06/02/2019 Right Leg Wound Aerobic Culture: Normal Mariela After 48 Hours. Final. Date: 06/07/2019 New labs/ results as of last note T-Max: 97.7 Output: Not recorded Stool not recorded Current antibiotic: Ancef 2 gram IV every 8 hours Hepatic Function Panel Component Ref Range & Units 05:20 (06/07/19) 1d ago (06/06/19) 1d ago (06/06/19) 5d ago (06/02/19) Total Protein 6.0 - 8.0 g/dL 6.3 6.4 7.1 Albumin 3.2 - 5.2 g/dL 3.0Low 3.1Low 3.6 Total Bilirubin 0.0 - 1.3 mg/dL 0.3 0.4 0.6 Bilirubin, Direct 0.0 - 0.4 mg/dL 0.1 <0.1 Alkaline Phosphatase 40 - 150 U/L 80 83 98 AST 0 - 45 U/L 17 18 15 ALT 14 - 65 U/L 11Low 16 17 Magnesium Level 06/06/2019 Component Ref Range & Units 05:20 1d ago 2d ago Magnesium 1.6 - 2.4 mg/dL 1.7 1.7 1.8 CBC Auto Differential 06/06/2019 Component Ref Range & Units 05:20 1d ago 5d ago WBC 4.50 - 11.00 K/mcL 6.23 7.02 7.24 RBC 4.00 - 5.20 M/mcL 4.71 4.88 5.18 Hemoglobin 12.0 - 16.0 g/dL 13.2 13.6 14.3 Hematocrit 36.0 - 46.0 % 40.6 41.3 43.5 MCV 80.0 - 100.0 fL 86.2 84.6 84.0 MCH 26.0 - 34.0 pg 28.0 27.9 27.6 MCHC 31.0 - 37.0 g/dL 32.5 32.9 32.9 Platelets 150 - 400 K/mcL 203 222 223 Basic Metabolic Panel Component Ref Range & Units 05:20 1d ago 2d ago 5d ago Sodium 135 - 145 mmol/L 140 138 139 139 Potassium 3.5 - 5.1 mmol/L 3.5 2.9Low 3.5 2.8Low Chloride 98 - 108 mmol/L 103 100 99 99 Bicarbonate 21 - 32 mmol/L 30 32 29 31 Anion Gap 10 - 20 mmol/L 11 9Low 15 12 Glucose 65 - 99 mg/dL 127High 135High 141High 121High BUN 8 - 25 mg/dL 13 15 16 14 Creatinine 0.60 - 1.20 mg/dL 0.78 0.84 0.85 0.79 06/06/2019 - X-Ray right shoulder IMPRESSION: - Cortical irregularity suggesting impacted fracture in the humeral head/neck area. This is only demonstrated on the internal rotation view. Further evaluation is recommended/indicated with CT. Differential includes an artifact of positioning. - Findings suggest pleural thickening along the RIGHT lateral chest wall. Interstitial accentuationin the visualized lung. If further evaluation is felt to be indicated, follow-up should be considered with chest x-ray. 06/06/2019 - X-Ray Right knee IMPRESSION: FINDINGS/ Status post total right knee arthroplasty. No evidence of hardware complication. No acute fracture or malalignment. No sizable joint effusion. Mild overlying soft tissue swelling. 06/05/2019 Venous Duplex 06/05/2019 Arterial Doppler Update from previous note Current Cultures: 06/05/2019 Blood Culture #2: In Progress; No Growth after 48 hours. Preliminary. 06/05/2019 Blood Culture #1: In Progress; No Growth 48 hours. Preliminary. 06/02/2019 Left Leg Wound Aerobic Culture: No Growth After 48 Hours. Final. 06/02/2019 Right Leg Wound Aerobic Culture: Normal Mariela After 48 Hours. Final. Current Antibiotics: Ancef 2 gm IV every 8 Hours Labs: [facility] 06/06/2019 05:30 Glucose: 135 BUN: 15 Creatinine: 0.84 Sodium: 138 Potassium: 2.9 Total Protein: 6.4 Albumin: 3.1 Alk Phos: 83 AST: 18 ALT: 16 Total Bilirubin: 0.4 CBC 06/06/2019 05:30 WBC: 7.02 Hgb: 13.6 Hct: 41.3 Platelets: 222 Magnesium 06/06/2019 05:30 1.7 Results from last 7 days Lab Units 06/02/192000 SODIUM mmol/L 139 POTASSIUM mmol/L 2.8* CHLORIDE mmol/L 99 BUN mg/dL 14 CREATININE mg/dL 0.79 GLUCOSE mg/dL 121* CALCIUM mg/dL 8.9 Results from last 7 days Lab Units 06/02/192000 WBC K/mcL 7.24 HGB g/dL 14.3 HCT % 43.5 PLT K/mcL 223 Results from last 7 days Lab Units 06/02/192000 ALK PHOS U/L 98 BILIRUBIN TOTAL mg/dL 0.6 TOTAL PROTEIN g/dL 7.1 ALTR U/L 17 AST U/L 15 Current Cultures: 06/05/2019 Blood Culture #2: In Progress; No Growth to Date. Preliminary. 06/05/2019 Blood Culture #1: In Progress; No Growth to Date. Preliminary. 06/02/2019 Left Leg Wound Aerobic Culture: No Growth After 48 Hours. Final. 06/02/2019 Right Leg Wound Aerobic Culture: Normal Mariela After 48 Hours. Final. Radiology [facility]: MRI Lumbar Spine 01/30/2019 1. At L4-L5, there is degenerative grade 1 anterolisthesis secondary to facet arthropathy. There is severe spinal canal and bilateral lateral recess stenosis, and asymmetric mild to moderate left foraminal stenosis as described. 2. At L3-L4, there is moderate spinal canal stenosis and moderate bilateral foraminal stenosis as described. 3. At L5-S1, there is severe right and [id number] left neural foraminal stenosis as described. 4. Multiple small retroperitoneal lymph nodes are visualized, which are nonspecific. Left Hip/Pelvis X-Ray 09/16/2018 [facility]: 1. No acute osseous abnormality. 2. Mild left hip osteoarthrosis. 3. Mild enthesopathic change of the greater trochanter. Spine/Lumbosacral X-Ray 09/16/2018 [facility]: 1. No acute fracture, malalignment, or instability. 2. Moderate multilevel spondylosis with 3 mm degenerative anterolisthesis of L4 on L5. CVPS: Lower Arterial Doppler 06/05/2019 ordered Lower Venous Duplex 06/05/2019 ordered 2D Echo: not on file Surgeries: Please see above for surgical history Pathology: not on file * Paul Hurley MD - 06/09/2019 8:58 AM EST Internal medicine Inpatient Follow-up 06/09/2019 Paul Hurley MD [facility] Patient: Liz Bro Date of : 1950 (69 y.o.) PCP: Paul Hurley MD ASSESSMENT/PLAN: Liz Bro 69 y.o. female Chronic right shoulder pain Assessment & Plan Orthopedic consult appreciated patient had CT of the shoulder and local steroid injection. * Cellulitis of lower extremity Assessment & Plan Resolved. Pleural thickening Assessment & Plan Chest x-ray report noted. Acute pain of right knee Assessment & Plan Patient experienced spontaneous pain yesterday x-ray done showed no acute injury patient is pain-free now. Hypokalemia Assessment & Plan Improved. Assessment and Plan ID notes from yesterday noted. Patient will finish antifungal and antibiotic today we will discharge patient on Lotrisone cream SUBJECTIVE: History Since Last Visit: No new complaints Pending Lab and Radiology Results Order Current Status Blood Culture #1 Preliminary result Blood Culture #2 Preliminary result Review of Systems: All other systems reviewed and negative other than HPI OBJECTIVE: Physical Examination: BP 135/78 Pulse 63 Temp 97.3 F (36.3 C) (Oral) Resp 16 Ht 5' 6 Wt 114.6 kg (252 lb 10.4 oz) SpO2 93% BMI 40.78 kg/m General Appearance: Alert, well appearing, and in no acute distress. HEENT: Head - Normocephalic, atraumatic. Eyes - UZAIR bilaterally and EOMI. Ears - normal external appearance, hearing intact. Nose - normal, no erythema. Throat - mucous membranes moist, pharynx without lesions. Neck: Supple, trachea midline. Cardiovascular: S1, S2 normal. No murmurs, rubs, clicks or gallops appreciated. No pedal edema. Respiratory: Lungs clear to auscultation, no wheezes, rales or rhonchi heard. Abdomen: Soft, non-tender, normal bowel sounds, non-distended, no masses or organomegaly appreciated. Neurological: Grossly normal motor and sensory exam. No focal deficits. Musculoskeletal: No joint tenderness, deformity or swelling. Skin: Normal coloration and turgor. No rashes. Psych: Alert, oriented x 3. Normal mood and affect. Laboratory and Additional Data Reviewed: Reviewed 06/09/19 8:58 AM: Laboratory Lab Results Component Value Date WBC 6.23 06/07/2019 HGB 13.2 06/07/2019 HCT 40.6 06/07/2019 MCV 86.2 06/07/2019 EXTMCV 84.0 12/30/2017 PLT 203 06/07/2019 RBC 4.71 06/07/2019 Lab Results Component Value Date GLUCOSE 127 (H) 06/07/2019 CALCIUM 8.3 (L) 06/07/2019 NA 140 06/07/2019 K 3.5 06/07/2019 CL 103 06/07/2019 BUN 13 06/07/2019 CREATININE 0.78 06/07/2019 * Sandra Cuello RN - 06/09/2019 7:47 AM EST Date: 06/09/2019 New labs/ results as of last note T-Max: 98.1 Output: Urine 1100 ml Stool not recorded Current antibiotic: Ancef 2 grams IV every 8 hours Radiology: 06/08/2019 - CT Right Shoulder FINDINGS: There is no acute fracture or dislocation. Glenohumeral alignment is maintained. Mild arthritic disease of the AC joint without subluxation. No indication of rotator cuff atrophy. There are subchondral cysts at the insertion of the supraspinatus. IMPRESSION: 1. 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 2. There is evidence of chronic mild rotator cuff tendinopathy. No evidence of muscle atrophy. Update from previous note Current Cultures: 06/05/2019 Blood Culture #2: In Progress; No Growth after 48 hours. Preliminary. 06/05/2019 Blood Culture #1: In Progress; No Growth 48 hours. Preliminary. 06/02/2019 Left Leg Wound Aerobic Culture: No Growth After 48 Hours. Final. 06/02/2019 Right Leg Wound Aerobic Culture: Normal Mariela After 48 Hours. Final. * Andrew Elaine MD - 06/08/2019 1:15 PM EST Orthopedic progress note Patient unable to have MRI CT performed showing mild AC arthritis with probable chronic rotator cuff tendinopathy no evidence of muscle atrophy no evidence of fracture Plan a subacromial cortisone injection was performed that see my office in 2 or 3 weeks if not improved * Marilyn Pantoja MD - 06/08/2019 11:25 AM EST 06/06/2019 Patient Name: Liz Bro Admit Date: [id number] MR #: [id number] : 1950 Physicians: Paul Hurley MD (Family); No ref. provider found (Referring) Assessment and Plan: Impression Bilateral lower extremity cellulitis Bilateral venous insufficiency History of pulmonary edema Right prosthetic knee History of allergy to penicillin with nausea Patient on statin watch for interaction with Diflucan New candidiasis of skin New complaint of burning with Aldo bandages Plan Diflucan 200 mg p.o. daily continue last dose will be tomorrow Lotrisone to the right and left leg skin once a day Aldo bandage to both lower extremities for venous insufficiency swelling to be discontinued because she complained of burning with the Aldo bandages will go back to Tubigrip I Change Ancef 2 g IV every 8h for complete resolution by Wednesday Arterial Dopplers KELTON normal Venous Dopplers negative for DVT Discontinue all dressings Aldo bandage with Lotrisone Consider Unna compression bilaterally in the wound clinic on follow-up if needed Right and left leg cultures normal mariela Blood cultures no growth We will plan discharge tomorrow if possible on no p.o. antibiotics as the lower extremities are appearing much better She will follow-up with Dr. Joseph in the wound clinic on this Wednesday Chief Complaint/Reason for Visit: I am seeing this patient at the request of Dr. Marilyn MD. I have reviewed the current hospital record, available laboratory, cardiology and imaging studies as well as available out patient records. History of Present Illness: Admission H&P by Dr. Marilyn MD on 06/03/2019 Liz Bro is a 69 y.o. female presenting from doctor's office with a cellulitis of the lower extremities unresolved for several months. Had a trial of oral antibiotic, failed outpatient treatment. Elderly white female states that since March she had right and left anterior leg area blisters was seeing Dr. 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 Exam: Tmax: 98.3 Urine Output: 1300 Stool: not recorded PACU Vitals 06/08/19 0740 BP: 129/84 Pulse: 71 Resp: 16 Temp: 97.4 F (36.3 C) SpO2: 93% Allergies: Antifungal - imidazole; Aspirin; Codeine; Fluoxetine hcl; and Salicylates Current Facility-Administered Medications: acetaminophen (TYLENOL) tablet 650 mg, 650 mg, Oral, 4x Daily PRN, Abilio Sanders MD, 650mg at 06/07/19 2335 carvedilol (COREG) tablet 25 mg, 25 mg, Oral, BID, Abilio Sanders MD, 25 mg at 06/08/19 1100 ceFAZolin (ANCEF) IVPB 2 g (premix), 2,000 mg, Intravenous, Q8H, Marilyn Pantoja MD, Last Rate: 100 mL/hr at 06/08/19 1107, 2,000 mg at 06/08/19 1107 clotrimazole-betamethasone (LOTRISONE) cream, , Topical, BID, Marilyn Pantoja MD docusate sodium (COLACE) capsule 100 mg, 100 mg, Oral, Daily, Abilio Sanders MD, 100 mg at 06/08/19 1100 enoxaparin (LOVENOX) syringe 40 mg, 40 mg, Subcutaneous, Q12H KEATON, Paul Hurley MD, 40 mg at 06/08/19 1059 fluconazole (DIFLUCAN) tablet 200 mg, 200 mg, Oral, Daily, Marilyn Pantoja MD, 200 mg at 06/08/19 1100 furosemide (LASIX) tablet 40 mg, 40 mg, Oral, Daily, Paul Hurley MD, 40 mg at 06/08/19 1100 gabapentin (NEURONTIN) capsule 100 mg, 100 mg, Oral, Nightly, Abilio Sanders MD, 100 mg at 06/07/192022 naloxone (NARCAN) injection 0.1 mg, 0.1 mg, Intravenous, PRN AND Notify physician, , , Until Discontinued AND naloxone (NARCAN) injection 0.4 mg, 0.4 mg, Intravenous, PRN, Abilio Sanders MD oxybutynin (DITROPAN) tablet 5 mg, 5 mg, Oral, BID, Abilio Sanders MD, 5 mg at 06/08/19 1100 potassium chloride (KAYCIEL) 20 mEq/15 mL solution 40 mEq, 40 mEq, Oral, TID, Paul Hurley MD, 40 mEq at 06/08/191099 pravastatin (PRAVACHOL) tablet 40 mg, 40 mg, Oral, Daily, Abilio Sanders MD, 40 mg at 06/07/192022 spironolactone (ALDACTONE) tablet 25 mg, 25 mg, Oral, Daily, Paul Hurley MD, 25 mg at 06/08/19 1100 PMH/PSH/SH/FH reviewed, no change except: She is in the hospital receiving IV antibiotics Review of Systems: All systems were reviewed and negative except: Denies any pain in the lower extremities denies any diarrhea Medications Reviewed. Chart Reviewed. Constitutional: Awake alert answers all HENT: Pupils reactive Head: No oral candidiasis Eyes: No icterus Neck: Supple Cardiovascular: Heart S1-S2 2 x 6 systolic murmur present no S3 Murmur Pulmonary/Chest: No crackles at the bases she has a history of pulmonary edema in the past Abdominal: Obese soft bowel sounds present Musculoskeletal: Right knee prosthesis no redness noted no calf tenderness Neurological: She has neuropathy etiology unclear she is borderline diabetic bilateral lower extremities neuropathy Skin: Right and left leg cellulitis present continues to improve even better than yesterday with the Lotrisone cream Wound: The right and left leg anterior area there were blisters before I do not see any open ulceration now They have healed up Candidiasis of the skin present improving with Lotrisone Strong: IV: Right forearm site looks good Other: Decreased pulses right and left foot KELTON was normal Laboratory and Additional Data Reviewed: Date:06/08/2019 New labs/ results as of last note T-Max: 97.9 Output: Urine 1750 ml Stool not recorded Current antibiotic: Ancef 2 grams IV every 8 hours Radiology: 06/08/2019 - CT Right Shoulder - results pending 06/08/2019 - Chest x-ray FINDINGS: Frontal and lateral views of the chest are submitted. The cardiomediastinal silhouette is enlarged, stable. Lungs, pleural spaces and pulmonary vasculature are normal. No acute osseous lesions are seen. IMPRESSION: 1. No acute cardiopulmonary abnormality. 2. Stable cardiomegaly. Update from previous note Current Cultures: 06/05/2019 Blood Culture #2: In Progress; No Growth after 48 hours. Preliminary. 06/05/2019 Blood Culture #1: In Progress; No Growth 48 hours. Preliminary. 06/02/2019 Left Leg Wound Aerobic Culture: No Growth After 48 Hours. Final. 06/02/2019 Right Leg Wound Aerobic Culture: Normal Mariela After 48 Hours. Final. Date: 06/07/2019 New labs/ results as of last note T-Max: 97.7 Output: Not recorded Stool not recorded Current antibiotic: Ancef 2 gram IV every 8 hours Hepatic Function Panel Component Ref Range & Units 05:20 (06/07/19) 1d ago (06/06/19) 1d ago (06/06/19) 5d ago (06/02/19) Total Protein 6.0 - 8.0 g/dL 6.3 6.4 7.1 Albumin 3.2 - 5.2 g/dL 3.0Low 3.1Low 3.6 Total Bilirubin 0.0 - 1.3 mg/dL 0.3 0.4 0.6 Bilirubin, Direct 0.0 - 0.4 mg/dL 0.1 <0.1 Alkaline Phosphatase 40 - 150 U/L 80 83 98 AST 0 - 45 U/L 17 18 15 ALT 14 - 65 U/L 11Low 16 17 Magnesium Level 06/06/2019 Component Ref Range & Units 05:20 1d ago 2d ago Magnesium 1.6 - 2.4 mg/dL 1.7 1.7 1.8 CBC Auto Differential 06/06/2019 Component Ref Range & Units 05:20 1d ago 5d ago WBC 4.50 - 11.00 K/mcL 6.23 7.02 7.24 RBC 4.00 - 5.20 M/mcL 4.71 4.88 5.18 Hemoglobin 12.0 - 16.0 g/dL 13.2 13.6 14.3 Hematocrit 36.0 - 46.0 % 40.6 41.3 43.5 MCV 80.0 - 100.0 fL 86.2 84.6 84.0 MCH 26.0 - 34.0 pg 28.0 27.9 27.6 MCHC 31.0 - 37.0 g/dL 32.5 32.9 32.9 Platelets 150 - 400 K/mcL 203 222 223 Basic Metabolic Panel Component Ref Range & Units 05:20 1d ago 2d ago 5d ago Sodium 135 - 145 mmol/L 140 138 139 139 Potassium 3.5 - 5.1 mmol/L 3.5 2.9Low 3.5 2.8Low Chloride 98 - 108 mmol/L 103 100 99 99 Bicarbonate 21 - 32 mmol/L 30 32 29 31 Anion Gap 10 - 20 mmol/L 11 9Low 15 12 Glucose 65 - 99 mg/dL 127High 135High 141High 121High BUN 8 - 25 mg/dL 13 15 16 14 Creatinine 0.60 - 1.20 mg/dL 0.78 0.84 0.85 0.79 06/06/2019 - X-Ray right shoulder IMPRESSION: - Cortical irregularity suggesting impacted fracture in the humeral head/neck area. This is only demonstrated on the internal rotation view. Further evaluation is recommended/indicated with CT. Differential includes an artifact of positioning. - Findings suggest pleural thickening along the RIGHT lateral chest wall. Interstitial accentuationin the visualized lung. If further evaluation is felt to be indicated, follow-up should be considered with chest x-ray. 06/06/2019 - X-Ray Right knee IMPRESSION: FINDINGS/ Status post total right knee arthroplasty. No evidence of hardware complication. No acute fracture or malalignment. No sizable joint effusion. Mild overlying soft tissue swelling. 06/05/2019 Venous Duplex 06/05/2019 Arterial Doppler Update from previous note Current Cultures: 06/05/2019 Blood Culture #2: In Progress; No Growth after 48 hours. Preliminary. 06/05/2019 Blood Culture #1: In Progress; No Growth 48 hours. Preliminary. 06/02/2019 Left Leg Wound Aerobic Culture: No Growth After 48 Hours. Final. 06/02/2019 Right Leg Wound Aerobic Culture: Normal Mariela After 48 Hours. Final. Current Antibiotics: Ancef 2 gm IV every 8 Hours Labs: CMP 06/06/2019 05:30 Glucose: 135 BUN: 15 Creatinine: 0.84 Sodium: 138 Potassium: 2.9 Total Protein: 6.4 Albumin: 3.1 Alk Phos: 83 AST: 18 ALT: 16 Total Bilirubin: 0.4 CBC 06/06/2019 05:30 WBC: 7.02 Hgb: 13.6 Hct: 41.3 Platelets: 222 Magnesium 06/06/2019 05:30 1.7 Results from last 7 days Lab Units 06/02/192000 SODIUM mmol/L 139 POTASSIUM mmol/L 2.8* CHLORIDE mmol/L 99 BUN mg/dL 14 CREATININE mg/dL 0.79 GLUCOSE mg/dL 121* CALCIUM mg/dL 8.9 Results from last 7 days Lab Units 06/02/192000 WBC K/mcL 7.24 HGB g/dL 14.3 HCT % 43.5 PLT K/mcL 223 Results from last 7 days Lab Units 06/02/192000 ALK PHOS U/L 98 BILIRUBIN TOTAL mg/dL 0.6 TOTAL PROTEIN g/dL 7.1 ALTR U/L 17 AST U/L 15 Current Cultures: 06/05/2019 Blood Culture #2: In Progress; No Growth to Date. Preliminary. 06/05/2019 Blood Culture #1: In Progress; No Growth to Date. Preliminary. 06/02/2019 Left Leg Wound Aerobic Culture: No Growth After 48 Hours. Final. 06/02/2019 Right Leg Wound Aerobic Culture: Normal Mariela After 48 Hours. Final. Radiology [facility]: MRI Lumbar Spine 01/30/2019 1. At L4-L5, there is degenerative grade 1 anterolisthesis secondary to facet arthropathy. There is severe spinal canal and bilateral lateral recess stenosis, and asymmetric mild to moderate left foraminal stenosis as described. 2. At L3-L4, there is moderate spinal canal stenosis and moderate bilateral foraminal stenosis as described. 3. At L5-S1, there is severe right and [id number] left neural foraminal stenosis as described. 4. Multiple small retroperitoneal lymph nodes are visualized, which are nonspecific. Left Hip/Pelvis X-Ray 09/16/2018 [facility]: 1. No acute osseous abnormality. 2. Mild left hip osteoarthrosis. 3. Mild enthesopathic change of the greater trochanter. Spine/Lumbosacral X-Ray 09/16/2018 [facility]: 1. No acute fracture, malalignment, or instability. 2. Moderate multilevel spondylosis with 3 mm degenerative anterolisthesis of L4 on L5. CVPS: Lower Arterial Doppler 06/05/2019 ordered Lower Venous Duplex 06/05/2019 ordered 2D Echo: not on file Surgeries: Please see above for surgical history Pathology: not on file * Abilio Sanders MD - 06/08/2019 8:54 AM EST Patient was evaluated by Dr. ma for the left shoulder pain.X-ray for the shoulder showed She was seen by Dr. ma x-ray of the shoulder showed impacted comminuted fracture of the head of the humerus and patient has significant restriction of shoulder movement. Patient did undergo MRI scan of the shoulder this morning and pending results. Chest x-ray findings are negative no documented pleural thickening. By ID specialist for cellulitis of the legs cellulitis is resolving patient states she was able to be out of bed and wants to lose weight She has borderline diabetes mellitus and was recommended to increase physical activity and go on a diet will provide from the office. Her lab work shows a potassium up to 3.5, vital signs are stable Plan wait for the MRI report and further recommendations from Dr. ma. * Sandra Cuello RN - 06/08/2019 7:57 AM EST Date:06/08/2019 New labs/ results as of last note T-Max: 97.9 Output: Urine 1750 ml Stool not recorded Current antibiotic: Ancef 2 grams IV every 8 hours Radiology: 06/08/2019 - CT Right Shoulder - results pending 06/08/2019 - Chest x-ray FINDINGS: Frontal and lateral views of the chest are submitted. The cardiomediastinal silhouette is enlarged, stable. Lungs, pleural spaces and pulmonary vasculature are normal. No acute osseous lesions are seen. IMPRESSION: 1. No acute cardiopulmonary abnormality. 2. Stable cardiomegaly. Update from previous note Current Cultures: 06/05/2019 Blood Culture #2: In Progress; No Growth after 48 hours. Preliminary. 06/05/2019 Blood Culture #1: In Progress; No Growth 48 hours. Preliminary. 06/02/2019 Left Leg Wound Aerobic Culture: No Growth After 48 Hours. Final. 06/02/2019 Right Leg Wound Aerobic Culture: Normal Mariela After 48 Hours. Final. * Marilyn Pantoja MD - 06/07/2019 11:12 AM EST 06/06/2019 Patient Name: Liz Bro Admit Date: [id number] MR #: [id number] : 1950 Physicians: Paul Hurley MD (Family); No ref. provider found (Referring) Assessment and Plan: Impression Bilateral lower extremity cellulitis Bilateral venous insufficiency History of pulmonary edema Right prosthetic knee History of allergy to penicillin with nausea Patient on statin watch for interaction with Diflucan New candidiasis of skin Plan Diflucan 200 mg p.o. daily continue Lotrisone to the right and left leg skin once a day Aldo bandage to both lower extremities for venous insufficiency swelling Change Ancef 2 g IV every 8h for complete resolution by Wednesday Arterial Dopplers KELTON normal Venous Dopplers negative for DVT Discontinue all dressings Aldo bandage with Lotrisone Consider Unna compression bilaterally in the wound clinic on follow-up if needed Right and left leg cultures normal mariela Blood cultures no growth Chief Complaint/Reason for Visit: I am seeing this patient at the request of Dr. Marilyn MD. I have reviewed the current hospital record, available laboratory, cardiology and imaging studies as well as available out patient records. History of Present Illness: Admission H&P by Dr. Marilyn MD on 06/03/2019 Liz Bro is a 69 y.o. female presenting from doctor's office with a cellulitis of the lower extremities unresolved for several months. Had a trial of oral antibiotic, failed outpatient treatment. Elderly white female states that since March she had right and left anterior leg area blisters was seeing Dr. 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 Exam: Tmax: 98.3 Urine Output: 1300 Stool: not recorded PACU Vitals 06/07/19 1046 BP: 127/64 Pulse: 66 Resp: 18 Temp: 97.7 F (36.5 C) SpO2: 91% Allergies: Antifungal - imidazole; Aspirin; Codeine; Fluoxetine hcl; and Salicylates Current Facility-Administered Medications: acetaminophen (TYLENOL) tablet 650 mg, 650 mg, Oral, 4x Daily PRN, Abilio Sanders MD, 650mg at 06/07/19 0431 carvedilol (COREG) tablet 25 mg, 25 mg, Oral, BID, Abilio Sanders MD, 25 mg at 06/07/19 1100 ceFAZolin (ANCEF) IVPB 2 g (premix), 2,000 mg, Intravenous, Q8H, Sophia Clemente [facility],PharmD, Stopped at 06/07/19 0600 clotrimazole-betamethasone (LOTRISONE) cream, , Topical, BID, Marilyn Pantoja MD docusate sodium (COLACE) capsule 100 mg, 100 mg, Oral, Daily, Abilio Sanders MD, 100 mg at 06/07/19 1100 enoxaparin (LOVENOX) syringe 40 mg, 40 mg, Subcutaneous, Q12H KEATON, Paul Hurley MD, 40 mg at 06/07/19 1100 fluconazole (DIFLUCAN) tablet 200 mg, 200 mg, Oral, Daily, Marilyn Pantoja MD, 200 mg at 06/07/19 1100 furosemide (LASIX) tablet 40 mg, 40 mg, Oral, Daily, Paul Hurley MD, 40 mg at 06/07/19 1100 gabapentin (NEURONTIN) capsule 100 mg, 100 mg, Oral, Nightly, Abilio Sanders MD, 100 mg at 06/06/192102 naloxone (NARCAN) injection 0.1 mg, 0.1 mg, Intravenous, PRN AND Notify physician, , , Until Discontinued AND naloxone (NARCAN) injection 0.4 mg, 0.4 mg, Intravenous, PRN, Abilio Sanders MD oxybutynin (DITROPAN) tablet 5 mg, 5 mg, Oral, BID, Abilio Sanders MD, 5 mg at 06/07/19 1100 potassium chloride (KAYCIEL) 20 mEq/15 mL solution 40 mEq, 40 mEq, Oral, TID, Paul Hurley MD, 40 mEq at 06/07/19 1101 pravastatin (PRAVACHOL) tablet 40 mg, 40 mg, Oral, Daily, Abilio Sanders MD, 40 mg at 06/06/192102 spironolactone (ALDACTONE) tablet 25 mg, 25 mg, Oral, Daily, Paul Hurley MD, 25 mg at 06/07/19 1059 PMH/PSH/SH/FH reviewed, no change except: She is in the hospital receiving IV antibiotics Review of Systems: All systems were reviewed and negative except: Denies any pain in the lower extremities Medications Reviewed. Chart Reviewed. Constitutional: Awake alert answers all HENT: Pupils reactive Head: No oral candidiasis Eyes: No icterus Neck: Supple Cardiovascular: Heart S1-S2 2 x 6 systolic murmur present no S3 Murmur Pulmonary/Chest: No crackles at the bases she has a history of pulmonary edema in the past Abdominal: Obese soft bowel sounds present Musculoskeletal: Right knee prosthesis no redness noted no calf tenderness Neurological: She has neuropathy etiology unclear she is borderline diabetic bilateral lower extremities neuropathy Skin: Right and left leg cellulitis present continues to improve Wound: The right and left leg anterior area there were blisters before I do not see any open ulceration now They have healed up Candidiasis of the skin present improving with Lotrisone Strong: IV: Right forearm site looks good Other: Decreased pulses right and left foot KELTON was normal Laboratory and Additional Data Reviewed: Date: 06/07/2019 New labs/ results as of last note T-Max: 97.7 Output: Not recorded Stool not recorded Current antibiotic: Ancef 2 gram IV every 8 hours Hepatic Function Panel Component Ref Range & Units 05:20 (06/07/19) 1d ago (06/06/19) 1d ago (06/06/19) 5d ago (06/02/19) Total Protein 6.0 - 8.0 g/dL 6.3 6.4 7.1 Albumin 3.2 - 5.2 g/dL 3.0Low 3.1Low 3.6 Total Bilirubin 0.0 - 1.3 mg/dL 0.3 0.4 0.6 Bilirubin, Direct 0.0 - 0.4 mg/dL 0.1 <0.1 Alkaline Phosphatase 40 - 150 U/L 80 83 98 AST 0 - 45 U/L 17 18 15 ALT 14 - 65 U/L 11Low 16 17 Magnesium Level 06/06/2019 Component Ref Range & Units 05:20 1d ago 2d ago Magnesium 1.6 - 2.4 mg/dL 1.7 1.7 1.8 CBC Auto Differential 06/06/2019 Component Ref Range & Units 05:20 1d ago 5d ago WBC 4.50 - 11.00 K/mcL 6.23 7.02 7.24 RBC 4.00 - 5.20 M/mcL 4.71 4.88 5.18 Hemoglobin 12.0 - 16.0 g/dL 13.2 13.6 14.3 Hematocrit 36.0 - 46.0 % 40.6 41.3 43.5 MCV 80.0 - 100.0 fL 86.2 84.6 84.0 MCH 26.0 - 34.0 pg 28.0 27.9 27.6 MCHC 31.0 - 37.0 g/dL 32.5 32.9 32.9 Platelets 150 - 400 K/mcL 203 222 223 Basic Metabolic Panel Component Ref Range & Units 05:20 1d ago 2d ago 5d ago Sodium 135 - 145 mmol/L 140 138 139 139 Potassium 3.5 - 5.1 mmol/L 3.5 2.9Low 3.5 2.8Low Chloride 98 - 108 mmol/L 103 100 99 99 Bicarbonate 21 - 32 mmol/L 30 32 29 31 Anion Gap 10 - 20 mmol/L 11 9Low 15 12 Glucose 65 - 99 mg/dL 127High 135High 141High 121High BUN 8 - 25 mg/dL 13 15 16 14 Creatinine 0.60 - 1.20 mg/dL 0.78 0.84 0.85 0.79 06/06/2019 - X-Ray right shoulder IMPRESSION: - Cortical irregularity suggesting impacted fracture in the humeral head/neck area. This is only demonstrated on the internal rotation view. Further evaluation is recommended/indicated with CT. Differential includes an artifact of positioning. - Findings suggest pleural thickening along the RIGHT lateral chest wall. Interstitial accentuationin the visualized lung. If further evaluation is felt to be indicated, follow-up should be considered with chest x-ray. 06/06/2019 - X-Ray Right knee IMPRESSION: FINDINGS/ Status post total right knee arthroplasty. No evidence of hardware complication. No acute fracture or malalignment. No sizable joint effusion. Mild overlying soft tissue swelling. 06/05/2019 Venous Duplex 06/05/2019 Arterial Doppler Update from previous note Current Cultures: 06/05/2019 Blood Culture #2: In Progress; No Growth after 48 hours. Preliminary. 06/05/2019 Blood Culture #1: In Progress; No Growth 48 hours. Preliminary. 06/02/2019 Left Leg Wound Aerobic Culture: No Growth After 48 Hours. Final. 06/02/2019 Right Leg Wound Aerobic Culture: Normal Mariela After 48 Hours. Final. Current Antibiotics: Ancef 2 gm IV every 8 Hours Labs: CMP 06/06/2019 05:30 Glucose: 135 BUN: 15 Creatinine: 0.84 Sodium: 138 Potassium: 2.9 Total Protein: 6.4 Albumin: 3.1 Alk Phos: 83 AST: 18 ALT: 16 Total Bilirubin: 0.4 CBC 06/06/2019 05:30 WBC: 7.02 Hgb: 13.6 Hct: 41.3 Platelets: 222 Magnesium 06/06/2019 05:30 1.7 Results from last 7 days Lab Units 06/02/192000 SODIUM mmol/L 139 POTASSIUM mmol/L 2.8* CHLORIDE mmol/L 99 BUN mg/dL 14 CREATININE mg/dL 0.79 GLUCOSE mg/dL 121* CALCIUM mg/dL 8.9 Results from last 7 days Lab Units 06/02/192000 WBC K/mcL 7.24 HGB g/dL 14.3 HCT % 43.5 PLT K/mcL 223 Results from last 7 days Lab Units 06/02/192000 ALK PHOS U/L 98 BILIRUBIN TOTAL mg/dL 0.6 TOTAL PROTEIN g/dL 7.1 ALTR U/L 17 AST U/L 15 Current Cultures: 06/05/2019 Blood Culture #2: In Progress; No Growth to Date. Preliminary. 06/05/2019 Blood Culture #1: In Progress; No Growth to Date. Preliminary. 06/02/2019 Left Leg Wound Aerobic Culture: No Growth After 48 Hours. Final. 06/02/2019 Right Leg Wound Aerobic Culture: Normal Mariela After 48 Hours. Final. Radiology [facility]: MRI Lumbar Spine 01/30/2019 1. At L4-L5, there is degenerative grade 1 anterolisthesis secondary to facet arthropathy. There is severe spinal canal and bilateral lateral recess stenosis, and asymmetric mild to moderate left foraminal stenosis as described. 2. At L3-L4, there is moderate spinal canal stenosis and moderate bilateral foraminal stenosis as described. 3. At L5-S1, there is severe right and [id number] left neural foraminal stenosis as described. 4. Multiple small retroperitoneal lymph nodes are visualized, which are nonspecific. Left Hip/Pelvis X-Ray 09/16/2018 [facility]: 1. No acute osseous abnormality. 2. Mild left hip osteoarthrosis. 3. Mild enthesopathic change of the greater trochanter. Spine/Lumbosacral X-Ray 09/16/2018 [facility]: 1. No acute fracture, malalignment, or instability. 2. Moderate multilevel spondylosis with 3 mm degenerative anterolisthesis of L4 on L5. CVPS: Lower Arterial Doppler 06/05/2019 ordered Lower Venous Duplex 06/05/2019 ordered 2D Echo: not on file Surgeries: Please see above for surgical history Pathology: not on file * Paul Hurley MD - 06/07/2019 9:11 AM EST Internal medicine Inpatient Follow-up 06/07/2019 Paul Hurley MD [facility] Patient: Liz Bro Date of : 1950 (69 y.o.) PCP: Paul Hurley MD ASSESSMENT/PLAN: Liz Bro 69 y.o. female Chronic right shoulder pain Assessment & Plan Status post fall few months back.. X-ray suggestive of impacted fracture we will get orthopedic consult. * Cellulitis of lower extremity Assessment & Plan Clinically improving. ID recommendations noted. Pleural thickening Assessment & Plan Noted by chest x-ray on the shoulder x-ray will do a chest x-ray for confirmation Acute pain of right knee Assessment & Plan Patient experienced spontaneous pain yesterday x-ray done showed no acute injury patient is pain-free now. Hypokalemia Assessment & Plan Improved. Assessment and Plan orthopedic consult Date of discharge as per ID. SUBJECTIVE: History Since Last Visit: Patient still complains of right shoulder pain complained of knee pain yesterday which is resolved now. Leg feels much better. Patient denies any chest pain or shortness of breath. Pending Lab and Radiology Results Order Current Status Blood Culture #1 Preliminary result Blood Culture #2 Preliminary result Review of Systems: All other systems reviewed and negative other than HPI OBJECTIVE: Physical Examination: BP 122/77 (BP Location: Right arm, Patient Position: Lying) Pulse 67 Temp 97.7 F (36.5 C) (Oral) Resp 16 Ht 5' 6 Wt 114.6 kg (252 lb 10.4 oz) SpO2 92% BMI 40.78 kg/m General Appearance: Alert, well appearing, and in no acute distress. HEENT: Head - Normocephalic, atraumatic. Eyes - UZAIR bilaterally and EOMI. Ears - normal external appearance, hearing intact. Nose - normal, no erythema. Throat - mucous membranes moist, pharynx without lesions. Neck: Supple, trachea midline. Cardiovascular: S1, S2 normal. No murmurs, rubs, clicks or gallops appreciated. No pedal edema. Respiratory: Lungs clear to auscultation, no wheezes, rales or rhonchi heard. Abdomen: Soft, non-tender, normal bowel sounds, non-distended, no masses or organomegaly appreciated. Neurological: Grossly normal motor and sensory exam. No focal deficits. Musculoskeletal: Right shoulder movement is tender. Right knee examination unremarkable. Skin: Leg cellulitis appears much better. Psych: Alert, oriented x 3. Normal mood and affect. Laboratory and Additional Data Reviewed: Reviewed 06/07/19 9:15 AM: Laboratory and Radiology Lab Results Component Value Date WBC 6.23 06/07/2019 HGB 13.2 06/07/2019 HCT 40.6 06/07/2019 MCV 86.2 06/07/2019 EXTMCV 84.0 12/30/2017 PLT 203 06/07/2019 RBC 4.71 06/07/2019 Lab Results Component Value Date GLUCOSE 127 (H) 06/07/2019 CALCIUM 8.3 (L) 06/07/2019 NA 140 06/07/2019 K 3.5 06/07/2019 CL 103 06/07/2019 BUN 13 06/07/2019 CREATININE 0.78 06/07/2019 * Sandra Cuello RN - 06/07/2019 8:02 AM EST Date: 06/07/2019 New labs/ results as of last note T-Max: 97.7 Output: Not recorded Stool not recorded Current antibiotic: Ancef 2 gram IV every 8 hours Hepatic Function Panel Component Ref Range & Units 05:20 (06/07/19) 1d ago (06/06/19) 1d ago (06/06/19) 5d ago (06/02/19) Total Protein 6.0 - 8.0 g/dL 6.3 6.4 7.1 Albumin 3.2 - 5.2 g/dL 3.0Low 3.1Low 3.6 Total Bilirubin 0.0 - 1.3 mg/dL 0.3 0.4 0.6 Bilirubin, Direct 0.0 - 0.4 mg/dL 0.1 <0.1 Alkaline Phosphatase 40 - 150 U/L 80 83 98 AST 0 - 45 U/L 17 18 15 ALT 14 - 65 U/L 11Low 16 17 Magnesium Level 06/06/2019 Component Ref Range & Units 05:20 1d ago 2d ago Magnesium 1.6 - 2.4 mg/dL 1.7 1.7 1.8 CBC Auto Differential 06/06/2019 Component Ref Range & Units 05:20 1d ago 5d ago WBC 4.50 - 11.00 K/mcL 6.23 7.02 7.24 RBC 4.00 - 5.20 M/mcL 4.71 4.88 5.18 Hemoglobin 12.0 - 16.0 g/dL 13.2 13.6 14.3 Hematocrit 36.0 - 46.0 % 40.6 41.3 43.5 MCV 80.0 - 100.0 fL 86.2 84.6 84.0 MCH 26.0 - 34.0 pg 28.0 27.9 27.6 MCHC 31.0 - 37.0 g/dL 32.5 32.9 32.9 Platelets 150 - 400 K/mcL 203 222 223 Basic Metabolic Panel Component Ref Range & Units 05:20 1d ago 2d ago 5d ago Sodium 135 - 145 mmol/L 140 138 139 139 Potassium 3.5 - 5.1 mmol/L 3.5 2.9Low 3.5 2.8Low Chloride 98 - 108 mmol/L 103 100 99 99 Bicarbonate 21 - 32 mmol/L 30 32 29 31 Anion Gap 10 - 20 mmol/L 11 9Low 15 12 Glucose 65 - 99 mg/dL 127High 135High 141High 121High BUN 8 - 25 mg/dL 13 15 16 14 Creatinine 0.60 - 1.20 mg/dL 0.78 0.84 0.85 0.79 06/06/2019 - X-Ray right shoulder IMPRESSION: - Cortical irregularity suggesting impacted fracture in the humeral head/neck area. This is only demonstrated on the internal rotation view. Further evaluation is recommended/indicated with CT. Differential includes an artifact of positioning. - Findings suggest pleural thickening along the RIGHT lateral chest wall. Interstitial accentuationin the visualized lung. If further evaluation is felt to be indicated, follow-up should be considered with chest x-ray. 06/06/2019 - X-Ray Right knee IMPRESSION: FINDINGS/ Status post total right knee arthroplasty. No evidence of hardware complication. No acute fracture or malalignment. No sizable joint effusion. Mild overlying soft tissue swelling. 06/05/2019 Venous Duplex 06/05/2019 Arterial Doppler Update from previous note Current Cultures: 06/05/2019 Blood Culture #2: In Progress; No Growth after 48 hours. Preliminary. 06/05/2019 Blood Culture #1: In Progress; No Growth 48 hours. Preliminary. 06/02/2019 Left Leg Wound Aerobic Culture: No Growth After 48 Hours. Final. 06/02/2019 Right Leg Wound Aerobic Culture: Normal Mariela After 48 Hours. Final. * Marilyn Pantoja MD - 06/06/2019 10:44 AM EST 06/06/2019 Patient Name: Liz Bro Admit Date: [id number] MR #: [id number] : 1950 Physicians: Paul Hurley MD (Family); No ref. provider found (Referring) Assessment and Plan: Impression Bilateral lower extremity cellulitis Bilateral venous insufficiency History of pulmonary edema Right prosthetic knee History of allergy to penicillin with nausea Patient on statin watch for interaction with Diflucan New candidiasis of skin Plan Diflucan 200 mg p.o. daily Ancef 1 g IV every 8 Arterial Dopplers ordered results. Venous Dopplers negative for DVT Discontinue all dressings put only Tubigrip I Consider Unna compression bilaterally Right and left leg cultures normal mariela Blood cultures no growth Chief Complaint/Reason for Visit: I am seeing this patient at the request of Dr. Marilyn MD. I have reviewed the current hospital record, available laboratory, cardiology and imaging studies as well as available out patient records. History of Present Illness: Admission H&P by Dr. Marilyn MD on 06/03/2019 Liz Bro is a 69 y.o. female presenting from doctor's office with a cellulitis of the lower extremities unresolved for several months. Had a trial of oral antibiotic, failed outpatient treatment. Elderly white female states that since March she had right and left anterior leg area blisters was seeing Dr. 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 Exam: Tmax: 98.3 Urine Output: 1300 Stool: not recorded PACU Vitals 06/06/19 0859 BP: Pulse: Resp: 14 Temp: SpO2: Allergies: Antifungal - imidazole; Aspirin; Codeine; Fluoxetine hcl; and Salicylates Current Facility-Administered Medications: acetaminophen (TYLENOL) tablet 650 mg, 650 mg, Oral, 4x Daily PRN, Abilio Sanders MD, 650mg at 06/06/19 0426 carvedilol (COREG) tablet 25 mg, 25 mg, Oral, BID, Abilio Sanders MD, 25 mg at 06/06/19 0907 ceFAZolin (ANCEF) IVPB 2 g (premix), 2,000 mg, Intravenous, Q8H, [facility]ia Clemente [facility],PharmD, Stopped at 06/06/19 0500 docusate sodium (COLACE) capsule 100 mg, 100 mg, Oral, Daily, Abilio Sanders MD, 100 mg at 06/06/19 0907 enoxaparin (LOVENOX) syringe 40 mg, 40 mg, Subcutaneous, Q12H KEATON, Paul Hurley MD, 40 mg at 06/06/19 0910 [START ON 06/07/2019] furosemide (LASIX) tablet 40 mg, 40 mg, Oral, Daily, Paul Hurley MD gabapentin (NEURONTIN) capsule 100 mg, 100 mg, Oral, Nightly, Abilio Sanders MD, 100 mg at 06/05/19 203 naloxone (NARCAN) injection 0.1 mg, 0.1 mg, Intravenous, PRN AND Notify physician, , , Until Discontinued AND naloxone (NARCAN) injection 0.4 mg, 0.4 mg, Intravenous, PRN, Abilio Sanders MD oxybutynin (DITROPAN) tablet 5 mg, 5 mg, Oral, BID, Abilio Sanders MD, 5 mg at 06/06/19 0907 potassium chloride (KAYCIEL) 20 mEq/15 mL solution 40 mEq, 40 mEq, Oral, TID, Paul Hurley MD pravastatin (PRAVACHOL) tablet 40 mg, 40 mg, Oral, Daily, Abilio Sanders MD, 40 mg at 06/05/192036 spironolactone (ALDACTONE) tablet 25 mg, 25 mg, Oral, Daily, Paul Hurley MD PMH/PSH/SH/ reviewed, no change except: She is in the hospital receiving IV antibiotics Review of Systems: All systems were reviewed and negative except: Denies any pain in the lower extremities Medications Reviewed. Chart Reviewed. Constitutional: Awake alert answers all HENT: Pupils reactive Head: No oral candidiasis Eyes: No icterus Neck: Supple Cardiovascular: Heart S1-S2 2 x 6 systolic murmur present no S3 Murmur Pulmonary/Chest: No crackles at the bases she has a history of pulmonary edema in the past Abdominal: Obese soft bowel sounds present Musculoskeletal: Right knee prosthesis no redness noted no calf tenderness Neurological: She has neuropathy etiology unclear she is borderline diabetic bilateral lower extremities neuropathy Skin: Right and left leg cellulitis present much better than yesterday Wound: The right and left leg anterior area there were blisters before I do not see any open ulceration now They have healed up Candidiasis of the skin present Strong: IV: Right forearm site looks good Other: Decreased pulses right and left foot : Laboratory and Additional Data Reviewed: Current Antibiotics: Ancef 2 gm IV every 8 Hours Labs: CMP 06/06/2019 05:30 Glucose: 135 BUN: 15 Creatinine: 0.84 Sodium: 138 Potassium: 2.9 Total Protein: 6.4 Albumin: 3.1 Alk Phos: 83 AST: 18 ALT: 16 Total Bilirubin: 0.4 CBC 06/06/2019 05:30 WBC: 7.02 Hgb: 13.6 Hct: 41.3 Platelets: 222 Magnesium 06/06/2019 05:30 1.7 Results from last 7 days Lab Units 06/02/192000 SODIUM mmol/L 139 POTASSIUM mmol/L 2.8* CHLORIDE mmol/L 99 BUN mg/dL 14 CREATININE mg/dL 0.79 GLUCOSE mg/dL 121* CALCIUM mg/dL 8.9 Results from last 7 days Lab Units 06/02/192000 WBC K/mcL 7.24 HGB g/dL 14.3 HCT % 43.5 PLT K/mcL 223 Results from last 7 days Lab Units 06/02/192000 ALK PHOS U/L 98 BILIRUBIN TOTAL mg/dL 0.6 TOTAL PROTEIN g/dL 7.1 ALTR U/L 17 AST U/L 15 Current Cultures: 06/05/2019 Blood Culture #2: In Progress; No Growth to Date. Preliminary. 06/05/2019 Blood Culture #1: In Progress; No Growth to Date. Preliminary. 06/02/2019 Left Leg Wound Aerobic Culture: No Growth After 48 Hours. Final. 06/02/2019 Right Leg Wound Aerobic Culture: Normal Mariela After 48 Hours. Final. Radiology [facility]: MRI Lumbar Spine 01/30/2019 1. At L4-L5, there is degenerative grade 1 anterolisthesis secondary to facet arthropathy. There is severe spinal canal and bilateral lateral recess stenosis, and asymmetric mild to moderate left foraminal stenosis as described. 2. At L3-L4, there is moderate spinal canal stenosis and moderate bilateral foraminal stenosis as described. 3. At L5-S1, there is severe right and [id number] left neural foraminal stenosis as described. 4. Multiple small retroperitoneal lymph nodes are visualized, which are nonspecific. Left Hip/Pelvis X-Ray 09/16/2018 [facility]: 1. No acute osseous abnormality. 2. Mild left hip osteoarthrosis. 3. Mild enthesopathic change of the greater trochanter. Spine/Lumbosacral X-Ray 09/16/2018 [facility]: 1. No acute fracture, malalignment, or instability. 2. Moderate multilevel spondylosis with 3 mm degenerative anterolisthesis of L4 on L5. CVPS: Lower Arterial Doppler 06/05/2019 ordered Lower Venous Duplex 06/05/2019 ordered 2D Echo: not on file Surgeries: Please see above for surgical history Pathology: not on file * Paul Hurley MD - 06/06/2019 9:23 AM EST Internal medicine Inpatient Follow-up 06/06/2019 Paul Hurley MD [facility] Patient: Liz Bro Date of : 1950 (69 y.o.) PCP: Paul Hurley MD ASSESSMENT/PLAN: Liz Bro 69 y.o. female Chronic right shoulder pain Assessment & Plan Will get x-ray. Hypokalemia Assessment & Plan Probably secondary to diuresis Potassium supplement increased Aldactone added As edema has decreased we will decrease the Lasix and monitor. * Cellulitis of lower extremity Assessment & Plan Unresolved cellulitis as outpatient treatment. ID recommendations noted. Assessment and Plan patient overall appears better leg swelling is decreased. Plan as per ID. Imaging results still pending. SUBJECTIVE: History Since Last Visit: Complains of right shoulder pain Pending Lab and Radiology Results Order Current Status Ultrasound duplex venous legs bilat In process Blood Culture #1 Preliminary result Blood Culture #2 Preliminary result Review of Systems: All other systems reviewed and negative other than HPI OBJECTIVE: Physical Examination: BP (!) 152/82 Pulse 65 Temp 98 F (36.7 C) (Oral) Resp 14 Ht 5' 6 Wt 114.6 kg (252 lb 10.4 oz) SpO2 93% BMI 40.78 kg/m General Appearance: Alert, well appearing, and in no acute distress. Obese HEENT: Head - Normocephalic, atraumatic. Eyes - UZAIR bilaterally and EOMI. Ears - normal external appearance, hearing intact. Nose - normal, no erythema. Throat - mucous membranes moist, pharynx without lesions. Neck: Supple, trachea midline. Cardiovascular: S1, S2 normal. No murmurs, rubs, clicks or gallops appreciated. Leg edema is improved. Respiratory: Lungs clear to auscultation, no wheezes, rales or rhonchi heard. Abdomen: Soft, non-tender, normal bowel sounds, non-distended, no masses or organomegaly appreciated. Neurological: Grossly normal motor and sensory exam. No focal deficits. Musculoskeletal: No joint tenderness, deformity or swelling. Skin: Normal coloration and turgor. Eczematous rash bilateral leg. Psych: Alert, oriented x 3. Normal mood and affect. Laboratory and Additional Data Reviewed: Reviewed 06/06/19 9:23 AM: Laboratory Lab Results Component Value Date WBC 7.02 06/06/2019 HGB 13.6 06/06/2019 HCT 41.3 06/06/2019 MCV 84.6 06/06/2019 EXTMCV 84.0 12/30/2017 PLT 222 06/06/2019 RBC 4.88 06/06/2019 Lab Results Component Value Date GLUCOSE 135 (H) 06/06/2019 CALCIUM 8.4 06/06/2019 NA 138 06/06/2019 K 2.9 (L) 06/06/2019 CL 100 06/06/2019 BUN 15 06/06/2019 CREATININE 0.84 06/06/2019 * Daiana Tobar, [employer] - 06/06/2019 8:14 AM EST 06/06/2019 Patient Name: Liz Bro Admit Date: [id number] MR #: [id number] : 1950 Physicians: Paul Hurley MD (Family); No ref. provider found (Referring) Assessment and Plan: Impression Bilateral lower extremity cellulitis Bilateral venous insufficiency History of pulmonary edema Right prosthetic knee History of allergy to penicillin with nausea Plan Ancef 1 g IV every 8 Arterial Dopplers Venous Dopplers Discontinue all dressings put only Tubigrip I Consider Unna compression bilaterally Chief Complaint/Reason for Visit: I am seeing this patient at the request of Dr. Marilyn MD. I have reviewed the current hospital record, available laboratory, cardiology and imaging studies as well as available out patient records. History of Present Illness: Admission H&P by Dr. Marilyn MD on 06/03/2019 Liz Bro is a 69 y.o. female presenting from doctor's office with a cellulitis of the lower extremities unresolved for several months. Had a trial of oral antibiotic, failed outpatient treatment. Elderly white female states that since March she had right and left anterior leg area blisters was seeing Dr. 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 Exam: Tmax: 98.3 Urine Output: 1300 Stool: not recorded PACU Vitals 06/06/19 0754 BP: (!) 152/82 Pulse: 65 Resp: 14 Temp: 98 F (36.7 C) SpO2: 93% Allergies: Antifungal - imidazole; Aspirin; Codeine; Fluoxetine hcl; and Salicylates Current Facility-Administered Medications: acetaminophen (TYLENOL) tablet 650 mg, 650 mg, Oral, 4x Daily PRN, Abilio Sanders MD, 650mg at 06/06/19425 carvedilol (COREG) tablet 25 mg, 25 mg, Oral, BID, Abilio Sanders MD, 25 mg at 06/05/192036 ceFAZolin (ANCEF) IVPB 2 g (premix), 2,000 mg, Intravenous, Q8H, Sophia Clemente [facility],PharmD, Stopped at 06/06/19 0500 docusate sodium (COLACE) capsule 100 mg, 100 mg, Oral, Daily, Abilio Sanders MD, 100 mg at 06/05/19 0909 enoxaparin (LOVENOX) syringe 40 mg, 40 mg, Subcutaneous, Q12H KEATON, Paul Hurley MD, 40 mg at 06/05/192036 furosemide (LASIX) tablet 40 mg, 40 mg, Oral, BID, Abilio Sanders MD, 40 mg at 06/05/19 174 gabapentin (NEURONTIN) capsule 100 mg, 100 mg, Oral, Nightly, Abilio Sanders MD, 100 mg at 06/05/192036 naloxone (NARCAN) injection 0.1 mg, 0.1 mg, Intravenous, PRN AND Notify physician, , , Until Discontinued AND naloxone (NARCAN) injection 0.4 mg, 0.4 mg, Intravenous, PRN, Abilio Sanders MD oxybutynin (DITROPAN) tablet 5 mg, 5 mg, Oral, BID, Abilio Sanders MD, 5 mg at 06/05/192036 potassium chloride (KAYCIEL) 20 mEq/15 mL solution 20 mEq, 20 mEq, Oral, BID, Abilio Sanders MD, 20 mEq at 06/05/192036 pravastatin (PRAVACHOL) tablet 40 mg, 40 mg, Oral, Daily, Abilio Sanders MD, 40 mg at 06/05/192036 PMH/PSH/SH/FH reviewed, no change except: Review of Systems: All systems were reviewed and negative except: Medications Reviewed. Chart Reviewed. Exam Findings: HEENT: Neck: ENT: Chest: CVS: Abdomen: Extremities: Skin: Musculoskeletal: Wound: Neuro: Strong Catheter: IV Access: Other: Laboratory and Additional Data Reviewed: Current Antibiotics: Ancef 2 gm IV every 8 Hours Labs: CMP 06/06/2019 05:30 Glucose: 135 BUN: 15 Creatinine: 0.84 Sodium: 138 Potassium: 2.9 Total Protein: 6.4 Albumin: 3.1 Alk Phos: 83 AST: 18 ALT: 16 Total Bilirubin: 0.4 CBC 06/06/2019 05:30 WBC: 7.02 Hgb: 13.6 Hct: 41.3 Platelets: 222 Magnesium 06/06/2019 05:30 1.7 Results from last 7 days Lab Units 06/02/192000 SODIUM mmol/L 139 POTASSIUM mmol/L 2.8* CHLORIDE mmol/L 99 BUN mg/dL 14 CREATININE mg/dL 0.79 GLUCOSE mg/dL 121* CALCIUM mg/dL 8.9 Results from last 7 days Lab Units 06/02/192000 WBC K/mcL 7.24 HGB g/dL 14.3 HCT % 43.5 PLT K/mcL 223 Results from last 7 days Lab Units 06/02/192000 ALK PHOS U/L 98 BILIRUBIN TOTAL mg/dL 0.6 TOTAL PROTEIN g/dL 7.1 ALTR U/L 17 AST U/L 15 Current Cultures: 06/05/2019 Blood Culture #2: In Progress; No Growth to Date. Preliminary. 06/05/2019 Blood Culture #1: In Progress; No Growth to Date. Preliminary. 06/02/2019 Left Leg Wound Aerobic Culture: No Growth After 48 Hours. Final. 06/02/2019 Right Leg Wound Aerobic Culture: Normal Mariela After 48 Hours. Final. Radiology [facility]: MRI Lumbar Spine 01/30/2019 1. At L4-L5, there is degenerative grade 1 anterolisthesis secondary to facet arthropathy. There is severe spinal canal and bilateral lateral recess stenosis, and asymmetric mild to moderate left foraminal stenosis as described. 2. At L3-L4, there is moderate spinal canal stenosis and moderate bilateral foraminal stenosis as described. 3. At L5-S1, there is severe right and [id number] left neural foraminal stenosis as described. 4. Multiple small retroperitoneal lymph nodes are visualized, which are nonspecific. Left Hip/Pelvis X-Ray 09/16/2018 [facility]: 1. No acute osseous abnormality. 2. Mild left hip osteoarthrosis. 3. Mild enthesopathic change of the greater trochanter. Spine/Lumbosacral X-Ray 09/16/2018 [facility]: 1. No acute fracture, malalignment, or instability. 2. Moderate multilevel spondylosis with 3 mm degenerative anterolisthesis of L4 on L5. CVPS: Lower Arterial Doppler 06/05/2019 ordered Lower Venous Duplex 06/05/2019 ordered 2D Echo: not on file Surgeries: Please see above for surgical history Pathology: not on file * Tyler Joseph DPM - 06/05/2019 4:56 PM EST WOUND CARE PROVIDER NOTE Patient Name: Liz Bro MR #: [id number] : 1950 Date of Service: 06/05/19 ASSESSMENT 1. Ulcerations to right leg noted to be closed this time (unstageable due to overlying eschars at ulcer sites) 2. Ulceration to left leg noted to be closed this time (stage I in appearance) 3. Venous insufficiency to right and left lower extremity 4. Cellulitis to the right and left leg resolving PLAN Clinical exam Wound care orders were placed in the Epic system on June 05, 2019 Dr. Kari Pantoja (Infectious Disease specialist) is managing the patient's IV antibiotic therapy. Dr. Sanders and Dr. Hurley is managing the patient's medical needs. Dr. Tyler Joseph (Range Technician) is managing the patient's local wound care to the patient's R and L leg. SUBJECTIVE: History of Present Illness: Patient is a 69 y.o. female who is seen today at bedside for the evaluation of Ulcerations to the right and left leg. Patient relates no pain to the right or left leg at this time. Patient relates that she was seen earlier today by Dr. Hurley an Dr. Kari Pantoja. Allergies: Antifungal - imidazole; Aspirin; Codeine; Fluoxetine hcl; and Salicylates Home Medications: Current Facility-Administered Medications Medication Dose Route Frequency Provider Last Rate Last Dose acetaminophen (TYLENOL) tablet 650 mg 650 mg Oral 4x Daily PRN Abilio Sanders MD 650 mg at 06/05/19 1556 carvedilol (COREG) tablet 25 mg 25 mg Oral BID Abilio Sanders MD 25 mg at 06/05/19 0909 ceFAZolin (ANCEF) IVPB 2 g (premix) 2,000 mg Intravenous Q8H [facility],PharmD 100 mL/hr at 06/05/19 1204 2,000 mg at 06/05/19 1204 docusate sodium (COLACE) capsule 100 mg 100 mg Oral Daily Abilio Sanders MD 100 mg at 06/05/19 0909 enoxaparin (LOVENOX) syringe 40 mg 40 mg Subcutaneous Q12H [facility] Roshan Hurley MD 40mg at 06/05/19 09 furosemide (LASIX) tablet 40 mg 40 mg Oral BID Abilio Sanders MD 40 mg at 06/05/19 09 gabapentin (NEURONTIN) capsule 100 mg 100 mg Oral Nightly Abilio Sanders MD 100 mg at 06/04/192028 naloxone (NARCAN) injection 0.1 mg 0.1 mg Intravenous PRN Abilio Sanders MD And naloxone (NARCAN) injection 0.4 mg 0.4 mg Intravenous PRN Abilio Sanders MD oxybutynin (DITROPAN) tablet 5 mg 5 mg Oral BID Abilio Sanders MD 5 mg at 06/05/19 09 potassium chloride (KAYCIEL) 20 mEq/15 mL solution 20 mEq 20 mEq Oral BID Abiilo Sanders MD 20 mEq at 06/05/19 09 pravastatin (PRAVACHOL) tablet 40 mg 40 mg Oral Daily Abilio Sanders MD 40 mg at OBJECTIVE: Physical Examination Dermatological Exam Ulceration noted to the right leg medial aspect (noted to be closed this time) Ulceration is noted to be closed. Unstageable due to overlying stable eschars Ulcer Appearance: refer to photo above taken by Dr Joseph. No Tunneling No Undermining No Odor No Drainage noted from the ulcer sites. Cellulitis noted to the periwound skin Ulceration noted to the lateral aspect Left leg Ulceration is noted to be closed (stage I in appearance) Ulcer Appearance: refer to photo above taken by Dr. Joseph No Tunneling No Undermining No Odor No drainage noted from the ulcer site. Cellulitis noted to the periwound skin resolving Vascular Exam Skin temp. R ( leg to distal toes) = warm to warm Skin temp L ( leg to distal toes) = warm to warm Hair growth to the digits of the R foot = diminished Hair growth to the digits of the L foot = diminished Edema R lower extremity = +1 Edema L lower extremity = +1 Micro Culture results L LEG ulcer sites Final result Wound Aerobic Culture Order: [id number] Status: Final result Visible to patient: Yes (MyChart) Next appt: None Dx: Non-pressure chronic ulcer of unspeci... Specimen Information: Leg, Left; Swab Culture No Growth After 48 Hours Gram Stain Result No WBC Seen No Epithelial Cells Seen No Organisms Seen result Wound Aerobic Culture Order: [id number] Status: Final result Visible to patient: Yes (MyChart) Next appt: None Dx: Non-pressure chronic ulcer of unspeci... Specimen Information: Leg, Right; Swab Culture Normal Mariela After 48 Hours Gram Stain Result Rare WBC No Epithelial Cells Seen No Organisms Seen Resulting Agency: Lab Specimen Collected: 06/02/19 11:30 Vitals: BP 138/76 Pulse 68 Temp 97.8 F (36.6 C) (Oral) Resp 16 Ht 5' 6 Wt 114.6 kg (252 lb 10.4 oz) SpO2 92% BMI 40.78 kg/m Labs: Lab Results Component Value Date WBC 7.24 06/02/2019 HGB 14.3 06/02/2019 HCT 43.5 06/02/2019 MCV 84.0 06/02/2019 PLT 223 06/02/2019 Ref Range: Hem 12-16, Hct 36-46 Lab Results Component Value Date PROT 7.1 06/02/2019 ALBUMIN 3.6 06/02/2019 Ref Range: Total Protein 6-8, Albumin 3.2-5.2, Prealbumin 20-40 Lab Results Component Value Date HGBA1C 6.0 12/30/2017 Ref Range: HgbA1c 4-6 Lab Results Component Value Date GLUCOSE 141 (H) 06/05/2019 CALCIUM 8.5 06/05/2019 NA 139 06/05/2019 K 3.5 06/05/2019 CL 99 06/05/2019 BUN 16 06/05/2019 CREATININE 0.85 06/05/2019 Lab Results Component Value Date ALT 17 06/02/2019 AST 15 06/02/2019 ALKPHOS 98 06/02/2019 BILITOT 0.6 06/02/2019 No results found for: INR, PROTIME No results found for: CRP, SEDRATE History: Past Medical History: Diagnosis Date Arthritis Asthma CHF (congestive heart failure) (HCC) COPD (chronic obstructive pulmonary disease) (HCC) Disease of thyroid gland Past Surgical History: Procedure Laterality Date APPENDECTOMY BREAST SURGERY EYE SURGERY JOINT REPLACEMENT * Paul Hurley MD - 06/05/2019 9:45 AM EST Internal medicine Inpatient Follow-up 06/05/2019 Paul Hurley MD [facility] Patient: Liz Bro Date of : 1950 (69 y.o.) PCP: Paul Hurley MD ASSESSMENT/PLAN: Liz Bro 69 y.o. female * Cellulitis of lower extremity Assessment & Plan Unresolved cellulitis as outpatient treatment. ID recommendations noted. Assessment and Plan patient overall doing better. We will plan discharge in a day or 2. SUBJECTIVE: History Since Last Visit: No new complaints Review of Systems: All other systems reviewed and negative other than HPI OBJECTIVE: Physical Examination: BP (!) 133/54 Pulse 77 Temp 98.3 F (36.8 C) (Oral) Resp 15 Ht 5' 6 Wt 114.6 kg (252 lb 10.4 oz) SpO2 93% BMI 40.78 kg/m General Appearance: Alert, well appearing, and in no acute distress. HEENT: Head - Normocephalic, atraumatic. Eyes - UZAIR bilaterally and EOMI. Ears - normal external appearance, hearing intact. Nose - normal, no erythema. Throat - mucous membranes moist, pharynx without lesions. Neck: Supple, trachea midline. Cardiovascular: S1, S2 normal. No murmurs, rubs, clicks or gallops appreciated. Bilateral pedal edema. No calf tenderness. Respiratory: Lungs clear to auscultation, no wheezes, rales or rhonchi heard. Abdomen: Soft, non-tender, normal bowel sounds, non-distended, no masses or organomegaly appreciated. Neurological: Grossly normal motor and sensory exam. No focal deficits. Musculoskeletal: No joint tenderness, deformity or swelling. Skin: Bilateral leg cellulitis with eczema noted. Psych: Alert, oriented x 3. Normal mood and affect. Laboratory and Additional Data Reviewed: Reviewed 06/05/19 9:45 AM: Laboratory hypokalemia on replacement we will repeat labs. Lab Results Component Value Date WBC 7.24 06/02/2019 HGB 14.3 06/02/2019 HCT 43.5 06/02/2019 MCV 84.0 06/02/2019 EXTMCV 84.0 12/30/2017 PLT 223 06/02/2019 RBC 5.18 06/02/2019 Lab Results Component Value Date GLUCOSE 121 (H) 06/02/2019 CALCIUM 8.9 06/02/2019 NA 139 06/02/2019 K 2.8 (L) 06/02/2019 CL 99 06/02/2019 BUN 14 06/02/2019 CREATININE 0.79 06/02/2019 * Daiana Tobar, AI - 06/05/2019 7:50 AM EST CONSULT NOTE 06/05/2019 Patient Name: Liz Bro Admit Date: [id number] MR #: [id number] : 1950 Physicians: Paul Hurley MD (Family); No ref. provider found (Referring) Assessment and Plan: Chief Complaint/Reason for Visit: I am seeing this patient at the request of Dr. Marilyn MD. I have reviewed the current hospital record, available laboratory, cardiology and imaging studies as wellas available out patient records. History of Present Illness: Admission H&P by Dr. Marilyn MD on 06/03/2019 Liz Bro is a 69 y.o. female presenting from doctor's office with a cellulitis of the lower extremities unresolved for several months. Had a trial of oral antibiotic, failed outpatient treatment. History: Past Medical History: Diagnosis Date Arthritis Asthma CHF (congestive heart failure) (HCC) COPD (chronic obstructive pulmonary disease) (HCC) Disease of thyroid gland Past Surgical History: Procedure Laterality Date APPENDECTOMY BREAST SURGERY EYE SURGERY JOINT REPLACEMENT History reviewed. No pertinent family history. Social History Socioeconomic History Marital status: Spouse name: Not on file Number of children: Not on file Years of education: Not on file Highest education level: Not on file Occupational History Not on file Social Needs Financial resource strain: Not on file Food insecurity Worry: Not on file Inability: Not on file Transportation needs Medical: Not on file Non-medical: Not on file Tobacco Use Smoking status: Former Smoker Last attempt to quit: 08/03/2002 Years since quittin.8 Smokeless tobacco: Former User Substance and Sexual Activity Alcohol use: Not Currently Drug use: Never Sexual activity: Yes control/protection: Surgical Lifestyle Physical activity Days per week: Not on file Minutes per session: Not on file Stress: Not on file Relationships Social connections Talks on phone: Not on file Gets together: Not on file Attends judaism service: Not on file Active member of club or organization: Not on file Attends meetings of clubs or organizations: Not on file Relationship status: Not on file Other Topics Concern Not on file Social History Narrative Not on file Allergy Information: I have reviewed the patient's allergies. Antifungal - imidazole; Aspirin; Codeine; Fluoxetine hcl; and Salicylates Home Medications: Prior to Admission medications Medication Sig Start Date End Date Taking? Authorizing Provider carvedilol (COREG) 25 MG tablet Take 25 mg by mouth 2 (two) times a day . 03/10/19 Yes Historical Provider, docusate sodium (COLACE) 100 MG capsule Take 100 mg by mouth every 12 (twelve) hours as needed . 04/25/19 Yes Historical Provider, furosemide (LASIX) 40 MG tablet Take 40 mg by mouth 2 (two) times a day 40 mg AM and 20 mg PM per patient . 05/02/19 Yes Historical Provider, gabapentin (NEURONTIN) 100 MG capsule Take 100 mg by mouth once At bedtime . 01/13/19 Yes HistoricalProvider, levothyroxine (SYNTHROID, LEVOTHROID) 50 MCG tablet Take 50 mcg by mouth once . Yes Historical Provider, oxybutynin (DITROPAN) 5 MG tablet Take 5 mg by mouth 2 (two) times a day . 04/20/19 Yes Historical Provider, pravastatin (PRAVACHOL) 40 MG tablet Take 40 mg by mouth daily . 03/10/19 Yes Historical Provider, Current Scheduled Meds: carvedilol 25 mg Oral BID ceFAZolin (ANCEF) IVPB 1,000 mg Intravenous Q8H docusate sodium 100 mg Oral Daily enoxaparin (LOVENOX) injection 40 mg Subcutaneous Q12H KEATON furosemide 40 mg Oral BID gabapentin 100 mg Oral Nightly oxybutynin 5 mg Oral BID potassium chloride 20 mEq Oral BID pravastatin 40 mg Oral Daily Review of Systems: The following system(s) were reviewed and pertinent findings noted: Constitutional:No fever, no weight change, no night sweats Eyes:No visual changes ENT:No sore throat, no ear pain CV:No chest pain. No dypnea with exertion, no palpitations, no orthopnea. No ankle swelling and no symptoms of intermittent claudication. Resp:No cough, sputum, wheeze or hemoptysis. No pleurisy. GI:No abdominal pain.No nausea, vomiting or diarrhea. No rectal bleeding. :No frequency, urgency, dysuria or hematuria. Neuro:No headache, dizziness. No focal weakness or paresthesias. Integumentary:No skin rash MuscSkel:No joint pain, no swelling, no synovitis or joint effusion. Wound: Heme/lymphatic:No apparent lymphadenopathy. Psych:N/A Physical Examination: Vital Signs: Tmax: 98.2 Urine Output: 2300 Stool: not recorded BP 132/66 Pulse 68 Temp 97.6 F (36.4 C) (Oral) Resp 16 Ht 5' 6 Wt 114.6 kg (252 lb 10.4 oz) SpO2 92% BMI 40.78 kg/m Exam Findings: Constitutional: HENT: Head: Eyes: Neck: Cardiovascular: Murmur Pulmonary/Chest: Abdominal: Musculoskeletal: Neurological: Skin: Wound: * No LDAs found * Strong: IV: Other: Current Antibiotics: Ancef 1 gm IV every 8 Hours I have personally reviewed the labs and results Test results Laboratory and Additional Data Reviewed: Results from last 7 days Lab Units 06/02/192000 SODIUM mmol/L 139 POTASSIUM mmol/L 2.8* CHLORIDE mmol/L 99 BUN mg/dL 14 CREATININE mg/dL 0.79 GLUCOSE mg/dL 121* CALCIUM mg/dL 8.9 Results from last 7 days Lab Units 06/02/192000 WBC K/mcL 7.24 HGB g/dL 14.3 HCT % 43.5 PLT K/mcL 223 Results from last 7 days Lab Units 06/02/192000 ALK PHOS U/L 98 BILIRUBIN TOTAL mg/dL 0.6 TOTAL PROTEIN g/dL 7.1 ALTR U/L 17 AST U/L 15 Current Cultures: 06/02/2019 Left Leg Wound Aerobic Culture: No Growth After 48 Hours. Final. 06/02/2019 Right Leg Wound Aerobic Culture: Normal Mariela After 48 Hours. Final. Radiology [facility]: MRI Lumbar Spine 01/30/2019 1. At L4-L5, there is degenerative grade 1 anterolisthesis secondary to facet arthropathy. There is severe spinal canal and bilateral lateral recess stenosis, and asymmetric mild to moderate left foraminal stenosis as described. 2. At L3-L4, there is moderate spinal canal stenosis and moderate bilateral foraminal stenosis as described. 3. At L5-S1, there is severe right and [id number] left neural foraminal stenosis as described. 4. Multiple small retroperitoneal lymph nodes are visualized, which are nonspecific. Left Hip/Pelvis X-Ray 09/16/2018 [facility]: 1. No acute osseous abnormality. 2. Mild left hip osteoarthrosis. 3. Mild enthesopathic change of the greater trochanter. Spine/Lumbosacral X-Ray 09/16/2018 [facility]: 1. No acute fracture, malalignment, or instability. 2. Moderate multilevel spondylosis with 3 mm degenerative anterolisthesis of L4 on L5. CVPS: Arterial Doppler: not on file Venous Doppler: not on file 2D Echo: not on file Surgeries: Please see above for surgical history Pathology: not on file * Tyler Joseph DPM - 06/04/2019 5:53 PM EST WOUND CARE PROVIDER NOTE Patient Name: Liz Bro MR #: [id number] : 1950 Date of Service: 06/04/19 ASSESSMENT 1. Ulcerations limited to skin (stage II in appearance) noted to the right leg 2. Ulcerations limited to skin (stage II in appearance) noted to the left leg 3. Cellulitis to the right and left legs resolving with current IV antibiotic therapy 4. Edema to the right and left leg due to venous insufficiency. 5 Hypokalemia is being treated by Dr. Sanders and Dr. Hurley. PLAN Clinical exam Wound care orders were placed in the Epic system on 2018. Actocoat Flex and dry sterile dressing to be applied to the R and L leg ulcer sites once a day as directed. Dr. Sanders and Dr. Hurley managing the patient's Medical needs. Dr. Tyler Joseph (Range Technician) is managing the patient's local wound care to the patient's R and L leg ulcer sites. The patient will follow-up with Dr. Joseph at [facility] wound cliniic once the patient is discharged from [facility]. SUBJECTIVE: History of Present Illness: Patient is a 69 y.o. female who is seen today at bedside for the evaluation of ulcerations to the R and L foot. Patient relates that the dressing to her right and left legwas changed earlier this morning. Patient relates that she is feeling much better than she did whenshe was admitted by Dr. Sanders on Wed2018 for IV antibiotics and further medical work-up. Patient relates no pain to her right or left leg at this time. Patient was evaluated by Dr. Joseph at his office on 2018 at which time patient had cellulitis to the right and left leg with heavy serous drainage from her R and L leg ulceration sites. Thepatient advised Dr. Joseph that the redness and the drainage from her legs had increased over the past few days, and has not gotten better after she took her pill antibiotics. The last time the patient was evaluated at Dr. Joseph's office she did not not have any ulcerations to the R or L lower extremities. A swab culture of drainage from the R and L leg ulcer sites, were obtained on 2018. Bactroban ointment and dry sterile dressings were applied to the patient's R and L leg ulcer sites on [address] Joseph's office. Dr. Sanders was contacted by Dr. Joseph on 2018, to admitthe patient to [facility] for IV antibiotic therapy and further medical work-up.Patient relates no pain to her right or left leg ulcer sites at this time. Allergies: Antifungal - imidazole; Aspirin; Codeine; Fluoxetine hcl; and Salicylates Home Medications: Current Facility-Administered Medications Medication Dose Route Frequency Provider Last Rate Last Dose acetaminophen (TYLENOL) tablet 650 mg 650 mg Oral 4x Daily PRN Abilio Sanders MD 650 mg at 06/04/19 0529 carvedilol (COREG) tablet 25 mg 25 mg Oral BID Abilio Sanders MD 25 mg at 06/04/19 0947 ceFAZolin (ANCEF) IVPB 1 g (premix) 1,000 mg Intravenous Q8H Abilio Sanders MD Stopped at108/05/18 1200 docusate sodium (COLACE) capsule 100 mg 100 mg Oral Daily Abilio Sanders MD 100 mg at 06/04/19 0947 enoxaparin (LOVENOX) syringe 40 mg 40 mg Subcutaneous Q12H [facility] Roshan Hurley MD 40mg at 06/04/19 1143 furosemide (LASIX) tablet 40 mg 40 mg Oral BID Abilio Sanders MD 40 mg at 06/04/19 1620 gabapentin (NEURONTIN) capsule 100 mg 100 mg Oral Nightly Abilio Sanders MD 100 mg at 06/03/192035 naloxone (NARCAN) injection 0.1 mg 0.1 mg Intravenous PRN Abilio Sanders MD And naloxone (NARCAN) injection 0.4 mg 0.4 mg Intravenous PRN Abilio Sanders MD oxybutynin (DITROPAN) tablet 5 mg 5 mg Oral BID Abilio Sanders MD 5 mg at 06/04/19 0947 potassium chloride (KAYCIEL) 20 mEq/15 mL solution 20 mEq 20 mEq Oral BID Abilio Sanders MD 20 mEq at 06/04/19 0947 pravastatin (PRAVACHOL) tablet 40 mg 40 mg Oral Daily Abiloi Sanders MD 40 mg at 043 OBJECTIVE: Physical Examination Wound Dressings to the patient's R and L leg noted to be clean, dry and intact. Dermatological Exam (June 02, 2019) Ulcerations noted to the RIGHT leg Ulceration is noted to be limited to skin, stage II in appearance Ulcer base is composed of 100% pink granulation tissue No Tunneling No Undermining No Odor Large amount of serous drainage noted from the ulceration sites Cellulitis noted to periwound skin Ulcerations noted to the LEFT leg Ulceration is noted to be limited to skin, stage II in appearance Ulcer base is composed of 100% pink granulation tissue No Tunneling No Undermining No Odor Large amount of serous drainage noted from the ulceration sites Cellulitis noted to periwound skin Edema = +2 noted to the right and left leg Micro Culture results (RIGHT leg ulcer sites) Result Status Final result Wound Aerobic Culture Order: [id number] Status: Final result Visible to patient: No (Not Released) Next appt: None Dx: Non-pressure chronic ulcer of unspeci... Specimen Information: Leg, Right; Swab Culture Normal Mariela After 48 Hours Gram Stain Result Rare WBC No Epithelial Cells Seen No Organisms Seen Micro Culture results (LEFT leg ulcer sites) Final result Wound Aerobic Culture Order: [id number] Status: Final result Visible to patient: No (Not Released) Next appt: None Dx: Non-pressure chronic ulcer of unspeci... Specimen Information: Leg, Left; Swab Culture No Growth After 48 Hours Gram Stain Result No WBC Seen No Epithelial Cells Seen No Organisms Seen Vitals: BP (!) 120/55 Pulse 69 Temp 98.1 F (36.7 C) (Oral) Resp 18 Ht 5' 6 Wt 114.6 kg (252 lb 10.4 oz) SpO2 92% BMI 40.78 kg/m Labs: Lab Results Component Value Date WBC 7.24 06/02/2019 HGB 14.3 06/02/2019 HCT 43.5 06/02/2019 MCV 84.0 06/02/2019 PLT 223 06/02/2019 Ref Range: Hem 12-16, Hct 36-46 Lab Results Component Value Date PROT 7.1 06/02/2019 ALBUMIN 3.6 06/02/2019 Ref Range: Total Protein 6-8, Albumin 3.2-5.2, Prealbumin 20-40 Lab Results Component Value Date HGBA1C 6.0 12/30/2017 Ref Range: HgbA1c 4-6 Lab Results Component Value Date GLUCOSE 121 (H) 06/02/2019 CALCIUM 8.9 06/02/2019 NA 139 06/02/2019 K 2.8 (L) 06/02/2019 CL 99 06/02/2019 BUN 14 06/02/2019 CREATININE 0.79 06/02/2019 Lab Results Component Value Date ALT 17 06/02/2019 AST 15 06/02/2019 ALKPHOS 98 06/02/2019 BILITOT 0.6 06/02/2019 No results found for: INR, PROTIME No results found for: CRP, SEDRATE History: Past Medical History: Diagnosis Date Arthritis Asthma CHF (congestive heart failure) (HCC) COPD (chronic obstructive pulmonary disease) (HCC) Disease of thyroid gland Past Surgical History: Procedure Laterality Date APPENDECTOMY BREAST SURGERY EYE SURGERY JOINT REPLACEMENT Social History Socioeconomic History Marital status: Spouse name: Not on file Number of children: Not on file Years of education: Not on file Highest education level: Not on file Occupational History Not on file Social Needs Financial resource strain: Not on file Food insecurity Worry: Not on file Inability: Not on file Transportation needs Medical: Not on file Non-medical: Not on file Tobacco Use Smoking status: Former Smoker Last attempt to quit: 08/03/2002 Years since quittin.8 Smokeless tobacco: Former User Substance and Sexual Activity Alcohol use: Not Currently Drug use: Never Sexual activity: Yes control/protection: Surgical Lifestyle Physical activity Days per week: Not on file Minutes per session: Not on file Stress: Not on file Relationships Social connections Talks on phone: Not on file Gets together: Not on file Attends judaism service: Not on file Active member of club or organization: Not on file Attends meetings of clubs or organizations: Not on file Relationship status: Not on file Other Topics Concern Not on file Social History Narrative Not on file History reviewed. No pertinent family history. * Paul Hurley MD - 06/04/2019 9:38 AM EST Internal medicine Inpatient Follow-up 06/04/2019 Paul Hurley MD [facility] Patient: Liz Bro Date of : 1950 (69 y.o.) PCP: Paul Hurley MD ASSESSMENT/PLAN: Liz Bro 69 y.o. female * Cellulitis of lower extremity Assessment & Plan Unresolved cellulitis as outpatient treatment. Now on IV cefazolin Assessment and Plan cellulitis improving. Continue IV antibiotic for another day. SUBJECTIVE: History Since Last Visit: No new complaints no chest pain no shortness of breath Review of Systems: All other systems reviewed and negative other than HPI OBJECTIVE: Physical Examination: BP 142/68 Pulse 72 Temp 98.2 F (36.8 C) (Oral) Resp 14 Ht 5' 6 Wt 114.6 kg (252 lb 10.4 oz) SpO2 92% BMI 40.78 kg/m General Appearance: Alert, well appearing, and in no acute distress. Obese HEENT: Head - Normocephalic, atraumatic. Eyes - UZAIR bilaterally and EOMI. Ears - normal external appearance, hearing intact. Nose - normal, no erythema. Throat - mucous membranes moist, pharynx without lesions. Neck: Supple, trachea midline. Cardiovascular: S1, S2 normal. No murmurs, rubs, clicks or gallops appreciated. Bilateral leg edema present with erythema. Respiratory: Lungs clear to auscultation, no wheezes, rales or rhonchi heard. Abdomen: Soft, non-tender, normal bowel sounds, non-distended, no masses or organomegaly appreciated. Neurological: Grossly normal motor and sensory exam. No focal deficits. Musculoskeletal: No joint tenderness, deformity or swelling. Skin: Bilateral leg erythema and edema present. Has wrapping around both leg and foot. Psych: Alert, oriented x 3. Normal mood and affect. Laboratory and Additional Data Reviewed: Reviewed 06/04/19 9:38 AM: Laboratory Lab Results Component Value Date WBC 7.24 06/02/2019 HGB 14.3 06/02/2019 HCT 43.5 06/02/2019 MCV 84.0 06/02/2019 EXTMCV 84.0 12/30/2017 PLT 223 06/02/2019 RBC 5.18 06/02/2019 Lab Results Component Value Date GLUCOSE 121 (H) 06/02/2019 CALCIUM 8.9 06/02/2019 NA 139 06/02/2019 K 2.8 (L) 06/02/2019 CL 99 06/02/2019 BUN 14 06/02/2019 CREATININE 0.79 06/02/2019 documented in this encounter* Elyse George RN - 06/19/2019 12:26 PM EST Associated Order(s): Unna Boot Compression Dressing Post-Procedure Diagnose(s): Venous insufficiency (chronic) (peripheral); Venous stasis dermatitis of both lower extremities Multi-layer Compression Wrap Performed by:: Clinician Procedural Pain: 0 Bandage Type: Compression Compression Layers: Multi-layer Compression Product Type: Unna boot Dressing Applied: No Extremity Location: Below Knee * Sandra Cuello RN - 06/19/2019 10:45 AM EST Date: 06/19/2019 No new labs/ results as of last note: 06/09/2019 Update from previous note Current antibiotic: Keflex 500 mg daily x 1 week Previous antibiotic: Ancef 2 grams IV every 8 hours Radiology: 06/08/2019 - CT Right Shoulder FINDINGS: There is no acute fracture or dislocation. Glenohumeral alignment is maintained. Mild arthritic disease of the AC joint without subluxation. No indication of rotator cuff atrophy. There are subchondral cysts at the insertion of the supraspinatus. IMPRESSION: 1. 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 2. There is evidence of chronic mild rotator cuff tendinopathy. No evidence of muscle atrophy. Update from previous note Current Cultures: 06/05/2019 Blood Culture #2: In Progress; No Growth after 5 days. Final. 06/05/2019 Blood Culture #1: In Progress; No Growth after 5 days. Final. 06/02/2019 Left Leg Wound Aerobic Culture: No Growth After 48 Hours. Final. 06/02/2019 Right Leg Wound Aerobic Culture: Normal Mariela After 48 Hours. Final. * Marilyn Pantoja MD - 06/19/2019 10:45 AM EST 06/06/2019 Patient Name: Liz Bro Admit Date: [id number] MR #: [id number] : 1950 Physicians: Paul Hurley MD (Family); No ref. provider found (Referring) Assessment and Plan: Impression New venous dermatitis Bilateral lower extremity cellulitis Bilateral venous insufficiency History of pulmonary edema Right prosthetic knee History of allergy to penicillin with nausea Patient on statin watch for interaction with Diflucan candidiasis of skin complaint of burning with Aldo bandages Plan Keflex 500 mg p.o. twice daily Unna compression boot bilaterally not too tight KELTON were normal Venous ultrasound was negative for DVT Previous DC Diflucan DC Ancef P.o. Keflex 500 twice daily for 1 week Tubigrip to the lower extremities Follow-up in the wound clinic on 19 June at 10:45 AM Tubigrip to both lower extremities during the daytime Previous note Diflucan 200 mg p.o. daily continue last dose will be tomorrow Lotrisone to the right and left leg skin once a day Aldo bandage to both lower extremities for venous insufficiency swelling to be discontinued because she complained of burning with the Aldo bandages will go back to Tubigrip I Change Ancef 2 g IV every 8h for complete resolution by Wednesday Arterial Dopplers KELTON normal Venous Dopplers negative for DVT Discontinue all dressings Aldo bandage with Lotrisone Consider Unna compression bilaterally in the wound clinic on follow-up if needed Right and left leg cultures normal mariela Blood cultures no growth We will plan discharge tomorrow if possible on no p.o. antibiotics as the lower extremities are appearing much better She will follow-up with Dr. Joseph in the wound clinic on this Wednesday Chief Complaint/Reason for Visit: I am seeing this patient at the request of Dr. Marilyn MD. I have reviewed the current hospital record, available laboratory, cardiology and imaging studies as well as available out patient records. History of Present Illness: Admission H&P by Dr. Marilyn MD on 06/03/2019 Liz Bro is a 69 y.o. female presenting from doctor's office with a cellulitis of the lower extremities unresolved for several months. Had a trial of oral antibiotic, failed outpatient treatment. Elderly white female states that since March she had right and left anterior leg area blisters was seeing Dr. 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 Rash on both legs. ., Disp: 30 g, Rfl: 0 docusate sodium (COLACE) 100 MG capsule, Take 100 mg by mouth every 12 (twelve) hours as needed ., Disp: , Rfl: 3 furosemide (LASIX) 40 MG tablet, Take 40 mg by mouth 2 (two) times a day 40 mg AM and 20 mg PM per patient ., Disp: , Rfl: 3 gabapentin (NEURONTIN) 100 MG capsule, Take 100 mg by mouth once At bedtime ., Disp: , Rfl: levothyroxine (SYNTHROID, LEVOTHROID) 50 MCG tablet, Take 50 mcg by mouth once ., Disp: , Rfl: oxybutynin (DITROPAN) 5 MG tablet, Take 5 mg by mouth 2 (two) times a day ., Disp: , Rfl: 5 potassium chloride (K-DUR) 10 MEQ CR tablet, Take 2 (two) tablets (20 mEq total) by mouth 2 (two) times a day ., Disp: 120 tablet, Rfl: 0 pravastatin (PRAVACHOL) 40 MG tablet, Take 40 mg by mouth daily ., Disp: , Rfl: 2 [START ON 06/10/2019] spironolactone (ALDACTONE) 25 MG tablet, Take 1 (one) tablet (25 mg total) bymouth daily Start: 06/10/19., Disp: 30 tablet, Rfl: 0 No current facility-administered medications for this visit. Facility-Administered Medications Ordered in Other Visits: acetaminophen (TYLENOL) tablet 650 mg, 650 mg, Oral, 4x Daily PRN, Abilio Sanders MD, 650mg at 06/09/19 0055 carvedilol (COREG) tablet 25 mg, 25 mg, Oral, BID, Abilio Sanders MD, 25 mg at 06/09/19 0817 ceFAZolin (ANCEF) IVPB 2 g (premix), 2,000 mg, Intravenous, Q8H, Marilyn Pantoja MD, Stopped at 06/09/19 0640 clotrimazole-betamethasone (LOTRISONE) cream, , Topical, BID, Marilyn Pantoja MD docusate sodium (COLACE) capsule 100 mg, 100 mg, Oral, Daily, Abilio Sanders MD, 100 mg at 06/09/19 0817 enoxaparin (LOVENOX) syringe 40 mg, 40 mg, Subcutaneous, Q12H KEATON, Paul Hurley MD, 40 mg at 06/09/19 0818 fluconazole (DIFLUCAN) tablet 200 mg, 200 mg, Oral, Daily, Marilyn Pantoja MD, 200 mg at 06/09/19 08 furosemide (LASIX) tablet 40 mg, 40 mg, Oral, Daily, Paul Hurley MD, 40 mg at 06/09/19 08 gabapentin (NEURONTIN) capsule 100 mg, 100 mg, Oral, Nightly, Abilio Sanders MD, 100 mg at 06/08/19 2224 naloxone (NARCAN) injection 0.1 mg, 0.1 mg, Intravenous, PRN AND Notify physician, , , Until Discontinued AND naloxone (NARCAN) injection 0.4 mg, 0.4 mg, Intravenous, PRN, Abilio Sanders MD oxybutynin (DITROPAN) tablet 5 mg, 5 mg, Oral, BID, Abilio Sanders MD, 5 mg at 06/09/19816 potassium chloride (KAYCIEL) 20 mEq/15 mL solution 40 mEq, 40 mEq, Oral, TID, Paul Hurley MD, 40 mEq at 06/09/19816 pravastatin (PRAVACHOL) tablet 40 mg, 40 mg, Oral, Daily, Abilio Sanders MD, 40 mg at 06/08/19 2225 spironolactone (ALDACTONE) tablet 25 mg, 25 mg, Oral, Daily, Paul Hurley MD, 25 mg at 06/09/19 08 PMH/PSH/SH/ reviewed, no change except: She was in the hospital receiving IV antibiotics Review of Systems: All systems were reviewed and negative except: Denies any pain in the lower extremities denies any diarrhea Patient is clinically functioning much better since we have been treated her with the IV antibiotics followed by p.o. antibiotic Medications Reviewed. Chart Reviewed. Constitutional: Awake alert answers all HENT: Pupils reactive Head: No oral candidiasis Eyes: No icterus Neck: Supple Cardiovascular: Heart S1-S2 2 x 6 systolic murmur present no S3 Murmur Pulmonary/Chest: No crackles at the bases she has a history of pulmonary edema in the past Abdominal: Obese soft bowel sounds present Musculoskeletal: Right knee prosthesis no redness noted no calf tenderness Neurological: She has neuropathy etiology unclear she is borderline diabetic bilateral lower extremities neuropathy Skin: Right and left leg cellulitis has resolved completely wound: The right and left leg anterior area there were blisters before I do not see any open ulceration now They have healed up and stayed healed Candidiasis of the skin present improved with Lotrisone Strong: IV: Other: Decreased pulses right and left foot KELTON was normal Cellulitis much better dermatitis present candidiasis much better no open ulcerations Wound 06/19/19 1 Pre-tibial Right (Active) Wound Image 06/19/2019 11:39 AM Cleansed Soap and water 06/19/2019 11:39 AM Wound 06/19/19 2 Pre-tibial Left (Active) Wound Image 06/19/2019 11:39 AM Cleansed Soap and water 06/19/2019 11:39 AM Laboratory and Additional Data Reviewed: Date: 06/19/2019 No new labs/ results as of last note: 06/09/2019 Update from previous note Current antibiotic: Keflex 500 mg daily x 1 week Previous antibiotic: Ancef 2 grams IV every 8 hours Radiology: 06/08/2019 - CT Right Shoulder FINDINGS: There is no acute fracture or dislocation. Glenohumeral alignment is maintained. Mild arthritic disease of the AC joint without subluxation. No indication of rotator cuff atrophy. There are subchondral cysts at the insertion of the supraspinatus. IMPRESSION: 1. 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 2. There is evidence of chronic mild rotator cuff tendinopathy. No evidence of muscle atrophy. Update from previous note Current Cultures: 06/05/2019 Blood Culture #2: In Progress; No Growth after 5 days. Final. 06/05/2019 Blood Culture #1: In Progress; No Growth after 5 days. Final. 06/02/2019 Left Leg Wound Aerobic Culture: No Growth After 48 Hours. Final. 06/02/2019 Right Leg Wound Aerobic Culture: Normal Mariela After 48 Hours. Final. Date: 06/09/2019 New labs/ results as of last note T-Max: 98.1 Output: Urine 1100 ml Stool not recorded Current antibiotic: Ancef 2 grams IV every 8 hours Radiology: 06/08/2019 - CT Right Shoulder FINDINGS: There is no acute fracture or dislocation. Glenohumeral alignment is maintained. Mild arthritic disease of the AC joint without subluxation. No indication of rotator cuff atrophy. There are subchondral cysts at the insertion of the supraspinatus. IMPRESSION: 1. 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 2. There is evidence of chronic mild rotator cuff tendinopathy. No evidence of muscle atrophy. Update from previous note Current Cultures: 06/05/2019 Blood Culture #2: In Progress; No Growth after 48 hours. Preliminary. 06/05/2019 Blood Culture #1: In Progress; No Growth 48 hours. Preliminary. 06/02/2019 Left Leg Wound Aerobic Culture: No Growth After 48 Hours. Final. 06/02/2019 Right Leg Wound Aerobic Culture: Normal Mariela After 48 Hours. Final. Date:06/08/2019 New labs/ results as of last note T-Max: 97.9 Output: Urine 1750 ml Stool not recorded Current antibiotic: Ancef 2 grams IV every 8 hours Radiology: 06/08/2019 - CT Right Shoulder - results pending 06/08/2019 - Chest x-ray FINDINGS: Frontal and lateral views of the chest are submitted. The cardiomediastinal silhouette is enlarged, stable. Lungs, pleural spaces and pulmonary vasculature are normal. No acute osseous lesions are seen. IMPRESSION: 1. No acute cardiopulmonary abnormality. 2. Stable cardiomegaly. Update from previous note Current Cultures: 06/05/2019 Blood Culture #2: In Progress; No Growth after 48 hours. Preliminary. 06/05/2019 Blood Culture #1: In Progress; No Growth 48 hours. Preliminary. 06/02/2019 Left Leg Wound Aerobic Culture: No Growth After 48 Hours. Final. 06/02/2019 Right Leg Wound Aerobic Culture: Normal Mariela After 48 Hours. Final. Date: 06/07/2019 New labs/ results as of last note T-Max: 97.7 Output: Not recorded Stool not recorded Current antibiotic: Ancef 2 gram IV every 8 hours Hepatic Function Panel Component Ref Range & Units 05:20 (06/07/19) 1d ago (06/06/19) 1d ago (06/06/19) 5d ago (06/02/19) Total Protein 6.0 - 8.0 g/dL 6.3 6.4 7.1 Albumin 3.2 - 5.2 g/dL 3.0Low 3.1Low 3.6 Total Bilirubin 0.0 - 1.3 mg/dL 0.3 0.4 0.6 Bilirubin, Direct 0.0 - 0.4 mg/dL 0.1 <0.1 Alkaline Phosphatase 40 - 150 U/L 80 83 98 AST 0 - 45 U/L 17 18 15 ALT 14 - 65 U/L 11Low 16 17 Magnesium Level 06/06/2019 Component Ref Range & Units 05:20 1d ago 2d ago Magnesium 1.6 - 2.4 mg/dL 1.7 1.7 1.8 CBC Auto Differential 06/06/2019 Component Ref Range & Units 05:20 1d ago 5d ago WBC 4.50 - 11.00 K/mcL 6.23 7.02 7.24 RBC 4.00 - 5.20 M/mcL 4.71 4.88 5.18 Hemoglobin 12.0 - 16.0 g/dL 13.2 13.6 14.3 Hematocrit 36.0 - 46.0 % 40.6 41.3 43.5 MCV 80.0 - 100.0 fL 86.2 84.6 84.0 MCH 26.0 - 34.0 pg 28.0 27.9 27.6 MCHC 31.0 - 37.0 g/dL 32.5 32.9 32.9 Platelets 150 - 400 K/mcL 203 222 223 Basic Metabolic Panel Component Ref Range & Units 05:20 1d ago 2d ago 5d ago Sodium 135 - 145 mmol/L 140 138 139 139 Potassium 3.5 - 5.1 mmol/L 3.5 2.9Low 3.5 2.8Low Chloride 98 - 108 mmol/L 103 100 99 99 Bicarbonate 21 - 32 mmol/L 30 32 29 31 Anion Gap 10 - 20 mmol/L 11 9Low 15 12 Glucose 65 - 99 mg/dL 127High 135High 141High 121High BUN 8 - 25 mg/dL 13 15 16 14 Creatinine 0.60 - 1.20 mg/dL 0.78 0.84 0.85 0.79 06/06/2019 - X-Ray right shoulder IMPRESSION: - Cortical irregularity suggesting impacted fracture in the humeral head/neck area. This is only demonstrated on the internal rotation view. Further evaluation is recommended/indicated with CT. Differential includes an artifact of positioning. - Findings suggest pleural thickening along the RIGHT lateral chest wall. Interstitial accentuationin the visualized lung. If further evaluation is felt to be indicated, follow-up should be considered with chest x-ray. 06/06/2019 - X-Ray Right knee IMPRESSION: FINDINGS/ Status post total right knee arthroplasty. No evidence of hardware complication. No acute fracture or malalignment. No sizable joint effusion. Mild overlying soft tissue swelling. 06/05/2019 Venous Duplex 06/05/2019 Arterial Doppler Update from previous note Current Cultures: 06/05/2019 Blood Culture #2: In Progress; No Growth after 48 hours. Preliminary. 06/05/2019 Blood Culture #1: In Progress; No Growth 48 hours. Preliminary. 06/02/2019 Left Leg Wound Aerobic Culture: No Growth After 48 Hours. Final. 06/02/2019 Right Leg Wound Aerobic Culture: Normal Mariela After 48 Hours. Final. Current Antibiotics: Ancef 2 gm IV every 8 Hours Labs: CMP 06/06/2019 05:30 Glucose: 135 BUN: 15 Creatinine: 0.84 Sodium: 138 Potassium: 2.9 Total Protein: 6.4 Albumin: 3.1 Alk Phos: 83 AST: 18 ALT: 16 Total Bilirubin: 0.4 CBC 06/06/2019 05:30 WBC: 7.02 Hgb: 13.6 Hct: 41.3 Platelets: 222 Magnesium 06/06/2019 05:30 1.7 Results from last 7 days Lab Units 06/02/192000 SODIUM mmol/L 139 POTASSIUM mmol/L 2.8* CHLORIDE mmol/L 99 BUN mg/dL 14 CREATININE mg/dL 0.79 GLUCOSE mg/dL 121* CALCIUM mg/dL 8.9 Results from last 7 days Lab Units 06/02/192000 WBC K/mcL 7.24 HGB g/dL 14.3 HCT % 43.5 PLT K/mcL 223 Results from last 7 days Lab Units 06/02/192000 ALK PHOS U/L 98 BILIRUBIN TOTAL mg/dL 0.6 TOTAL PROTEIN g/dL 7.1 ALTR U/L 17 AST U/L 15 Current Cultures: 06/05/2019 Blood Culture #2: In Progress; No Growth to Date. Preliminary. 06/05/2019 Blood Culture #1: In Progress; No Growth to Date. Preliminary. 06/02/2019 Left Leg Wound Aerobic Culture: No Growth After 48 Hours. Final. 06/02/2019 Right Leg Wound Aerobic Culture: Normal Mariela After 48 Hours. Final. Radiology [facility]: MRI Lumbar Spine 01/30/2019 1. At L4-L5, there is degenerative grade 1 anterolisthesis secondary to facet arthropathy. There is severe spinal canal and bilateral lateral recess stenosis, and asymmetric mild to moderate left foraminal stenosis as described. 2. At L3-L4, there is moderate spinal canal stenosis and moderate bilateral foraminal stenosis as described. 3. At L5-S1, there is severe right and [id number] left neural foraminal stenosis as described. 4. Multiple small retroperitoneal lymph nodes are visualized, which are nonspecific. Left Hip/Pelvis X-Ray 09/16/2018 [facility]: 1. No acute osseous abnormality. 2. Mild left hip osteoarthrosis. 3. Mild enthesopathic change of the greater trochanter. Spine/Lumbosacral X-Ray 09/16/2018 [facility]: 1. No acute fracture, malalignment, or instability. 2. Moderate multilevel spondylosis with 3 mm degenerative anterolisthesis of L4 on L5. CVPS: Lower Arterial Doppler 06/05/2019 ordered Lower Venous Duplex 06/05/2019 ordered 2D Echo: not on file Surgeries: Please see above for surgical history Pathology: not on file documented in this encounter* Marilyn Pantoja MD - 06/30/2019 7:25 AM EST 06/06/2019 Patient Name: Liz Bro Admit Date: [id number] MR #: [id number] : 1950 Physicians: Paul Hurley MD (Family); No ref. provider found (Referring) Assessment and Plan: Impression New venous dermatitis Bilateral lower extremity cellulitis Bilateral venous insufficiency History of pulmonary edema Right prosthetic knee History of allergy to penicillin with nausea Patient on statin watch for interaction with Diflucan candidiasis of skin complaint of burning with Aldo bandages Plan Discontinue Lotrisone Discontinue all local dressings no P.o. antibiotic Triad cream to right and left leg here today use as needed for itching at home Tubigrip I during the daytime Diabetic socks from drug [place] Discharge from the wound clinic Follow-up with PMD Previous note Keflex 500 mg p.o. twice daily she has completed Unna compression boot bilaterally not too tight move on Wednesday Start Lotrisone to the lower extremity on she has a tube at home just put it once a day Revisit Wednesday KELTON were normal Venous ultrasound was negative for DVT Diabetic socks from drug or [facility] Previous DC Diflucan DC Ancef P.o. Keflex 500 twice daily for 1 week Tubigrip to the lower extremities Follow-up in the wound clinic on 19 June at 10:45 AM Tubigrip to both lower extremities during the daytime Previous note Diflucan 200 mg p.o. daily continue last dose will be tomorrow Lotrisone to the right and left leg skin once a day Aldo bandage to both lower extremities for venous insufficiency swelling to be discontinued because she complained of burning with the Aldo bandages will go back to Tubigrip I Change Ancef 2 g IV every 8h for complete resolution by Wednesday Arterial Dopplers KELTON normal Venous Dopplers negative for DVT Discontinue all dressings Aldo bandage with Lotrisone Consider Unna compression bilaterally in the wound clinic on follow-up if needed Right and left leg cultures normal mariela Blood cultures no growth We will plan discharge tomorrow if possible on no p.o. antibiotics as the lower extremities are appearing much better She will follow-up with Dr. Joseph in the wound clinic on this Wednesday Chief Complaint/Reason for Visit: I am seeing this patient at the request of Dr. Marilyn MD. I have reviewed the current hospital record, available laboratory, cardiology and imaging studies as well as available out patient records. History of Present Illness: Admission H&P by Dr. Marilyn MD on 06/03/2019 Liz Bro is a 69 y.o. female presenting from doctor's office with a cellulitis of the lower extremities unresolved for several months. Had a trial of oral antibiotic, failed outpatient treatment. Elderly white female states that since March she had right and left anterior leg area blisters was seeing Dr. 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 Rash on both legs. ., Disp: 30 g, Rfl: 0 docusate sodium (COLACE) 100 MG capsule, Take 100 mg by mouth every 12 (twelve) hours as needed ., Disp: , Rfl: 3 furosemide (LASIX) 40 MG tablet, Take 40 mg by mouth 2 (two) times a day 40 mg AM and 20 mg PM per patient ., Disp: , Rfl: 3 gabapentin (NEURONTIN) 100 MG capsule, Take 100 mg by mouth once At bedtime ., Disp: , Rfl: levothyroxine (SYNTHROID, LEVOTHROID) 50 MCG tablet, Take 50 mcg by mouth once ., Disp: , Rfl: oxybutynin (DITROPAN) 5 MG tablet, Take 5 mg by mouth 2 (two) times a day ., Disp: , Rfl: 5 potassium chloride (K-DUR) 10 MEQ CR tablet, Take 2 (two) tablets (20 mEq total) by mouth 2 (two) times a day ., Disp: 120 tablet, Rfl: 0 pravastatin (PRAVACHOL) 40 MG tablet, Take 40 mg by mouth daily ., Disp: , Rfl: 2 spironolactone (ALDACTONE) 25 MG tablet, Take 1 (one) tablet (25 mg total) by mouth daily Start: 06/10/19., Disp: 30 tablet, Rfl: 0 PMH/PSH/SH/FH reviewed, no change except: She was in the hospital receiving IV antibiotics Review of Systems: All systems were reviewed and negative except: Denies any pain in the lower extremities denies any diarrhea Patient is clinically functioning much better since we have been treated her with the IV antibiotics followed by p.o. antibiotic Medications Reviewed. BP 135/70 Pulse 71 Temp 97.7 F (36.5 C) Resp (!) 20 Chart Reviewed. Constitutional: Awake alert answers all HENT: Pupils reactive Head: No oral candidiasis Eyes: No icterus Neck: Supple Cardiovascular: Heart S1-S2 2 x 6 systolic murmur present no S3 Murmur Pulmonary/Chest: No crackles at the bases she has a history of pulmonary edema in the past Abdominal: Obese soft bowel sounds present Musculoskeletal: Right knee prosthesis no redness noted no calf tenderness Neurological: She has neuropathy etiology unclear she is borderline diabetic bilateral lower extremities neuropathy Skin: Right and left leg cellulitis has resolved completely wound: Bilateral lower extremities no blisters no ulcers dermatitis improved remarkably swelling remarkably under control Strong: IV: Other: Decreased pulses right and left foot KELTON was normal Cellulitis much better dermatitis present candidiasis much better no open ulcerations resolved completely Wound 06/19/19 1 Pre-tibial Right (Active) Wound Image 06/30/2019 7:17 AM Wound Length (cm) 0 cm 06/30/2019 7:17 AM Wound Width (cm) 0 cm 06/30/2019 7:17 AM Wound Depth (cm) 0 cm 06/30/2019 7:17 AM Wound Surface Area (cm^2) 0 cm^2 06/30/2019 7:17 AM Wound Volume (cm^3) 0 cm^3 06/30/2019 7:17 AM Area % Change 0 06/30/2019 7:17 AM Drainage Amount None 06/30/2019 7:17 AM Adrianna-wound Assessment Temperature WNL;[place] 06/30/2019 7:17 AM Cleansed Soap and water 06/23/2019 7:58 AM Secondary Dressing Gauze roll 06/23/2019 7:58 AM Compression Dressing Unna boot 06/23/2019 7:58 AM Wound 06/19/19 2 Pre-tibial Left (Active) Wound Image 06/30/2019 7:17 AM Wound Length (cm) 0 cm 06/30/2019 7:17 AM Wound Width (cm) 0 cm 06/30/2019 7:17 AM Wound Depth (cm) 0 cm 06/30/2019 7:17 AM Wound Surface Area (cm^2) 0 cm^2 06/30/2019 7:17 AM Wound Volume (cm^3) 0 cm^3 06/30/2019 7:17 AM Area % Change 0 06/30/2019 7:17 AM Drainage Amount None 06/30/2019 7:17 AM Adrianna-wound Assessment Temperature WNL;[place] 06/30/2019 7:17 AM Cleansed Soap and water 06/30/2019 7:17 AM Secondary Dressing Gauze roll 06/23/2019 7:58 AM Compression Dressing Unna boot 06/23/2019 7:58 AM Laboratory and Additional Data Reviewed: Date: 06/30/2019 No new labs/ results as of last note: 06/23/2019 Update from previous note No Current antibiotic: Previous antibiotic: Keflex 500 mg PO daily x 1 week Ancef 2 grams IV every 8 hours Update from previous note Current Cultures: 06/02/2019 Left Leg Wound Aerobic Culture: No Growth After 48 Hours. Final. 06/02/2019 Right Leg Wound Aerobic Culture: Normal Mariela After 48 Hours. Final. Dressing: BLE - Unna boots. Remove on 06/28/2019. Lotrison daily to BLE after that. Date: 06/23/2019 No new labs/ results as of last note: 06/19/2019 Update from previous note Current antibiotic: Previous antibiotic: Keflex 500 mg PO daily x 1 week Ancef 2 grams IV every 8 hours Update from previous note Current Cultures: 06/02/2019 Left Leg Wound Aerobic Culture: No Growth After 48 Hours. Final. 06/02/2019 Right Leg Wound Aerobic Culture: Normal Mariela After 48 Hours. Final. Dressing: BLE - Unna boots Date: 06/19/2019 No new labs/ results as of last note: 06/09/2019 Update from previous note Current antibiotic: Keflex 500 mg daily x 1 week Previous antibiotic: Ancef 2 grams IV every 8 hours Radiology: 06/08/2019 - CT Right Shoulder FINDINGS: There is no acute fracture or dislocation. Glenohumeral alignment is maintained. Mild arthritic disease of the AC joint without subluxation. No indication of rotator cuff atrophy. There are subchondral cysts at the insertion of the supraspinatus. IMPRESSION: 1. 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 2. There is evidence of chronic mild rotator cuff tendinopathy. No evidence of muscle atrophy. Update from previous note Current Cultures: 06/05/2019 Blood Culture #2: In Progress; No Growth after 5 days. Final. 06/05/2019 Blood Culture #1: In Progress; No Growth after 5 days. Final. 06/02/2019 Left Leg Wound Aerobic Culture: No Growth After 48 Hours. Final. 06/02/2019 Right Leg Wound Aerobic Culture: Normal Mariela After 48 Hours. Final. Date: 06/09/2019 New labs/ results as of last note T-Max: 98.1 Output: Urine 1100 ml Stool not recorded Current antibiotic: Ancef 2 grams IV every 8 hours Radiology: 06/08/2019 - CT Right Shoulder FINDINGS: There is no acute fracture or dislocation. Glenohumeral alignment is maintained. Mild arthritic disease of the AC joint without subluxation. No indication of rotator cuff atrophy. There are subchondral cysts at the insertion of the supraspinatus. IMPRESSION: 1. 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 2. There is evidence of chronic mild rotator cuff tendinopathy. No evidence of muscle atrophy. Update from previous note Current Cultures: 06/05/2019 Blood Culture #2: In Progress; No Growth after 48 hours. Preliminary. 06/05/2019 Blood Culture #1: In Progress; No Growth 48 hours. Preliminary. 06/02/2019 Left Leg Wound Aerobic Culture: No Growth After 48 Hours. Final. 06/02/2019 Right Leg Wound Aerobic Culture: Normal Mariela After 48 Hours. Final. Date:06/08/2019 New labs/ results as of last note T-Max: 97.9 Output: Urine 1750 ml Stool not recorded Current antibiotic: Ancef 2 grams IV every 8 hours Radiology: 06/08/2019 - CT Right Shoulder - results pending 06/08/2019 - Chest x-ray FINDINGS: Frontal and lateral views of the chest are submitted. The cardiomediastinal silhouette is enlarged, stable. Lungs, pleural spaces and pulmonary vasculature are normal. No acute osseous lesions are seen. IMPRESSION: 1. No acute cardiopulmonary abnormality. 2. Stable cardiomegaly. Update from previous note Current Cultures: 06/05/2019 Blood Culture #2: In Progress; No Growth after 48 hours. Preliminary. 06/05/2019 Blood Culture #1: In Progress; No Growth 48 hours. Preliminary. 06/02/2019 Left Leg Wound Aerobic Culture: No Growth After 48 Hours. Final. 06/02/2019 Right Leg Wound Aerobic Culture: Normal Mariela After 48 Hours. Final. Date: 06/07/2019 New labs/ results as of last note T-Max: 97.7 Output: Not recorded Stool not recorded Current antibiotic: Ancef 2 gram IV every 8 hours Hepatic Function Panel Component Ref Range & Units 05:20 (06/07/19) 1d ago (06/06/19) 1d ago (06/06/19) 5d ago (06/02/19) Total Protein 6.0 - 8.0 g/dL 6.3 6.4 7.1 Albumin 3.2 - 5.2 g/dL 3.0Low 3.1Low 3.6 Total Bilirubin 0.0 - 1.3 mg/dL 0.3 0.4 0.6 Bilirubin, Direct 0.0 - 0.4 mg/dL 0.1 <0.1 Alkaline Phosphatase 40 - 150 U/L 80 83 98 AST 0 - 45 U/L 17 18 15 ALT 14 - 65 U/L 11Low 16 17 Magnesium Level 06/06/2019 Component Ref Range & Units 05:20 1d ago 2d ago Magnesium 1.6 - 2.4 mg/dL 1.7 1.7 1.8 CBC Auto Differential 06/06/2019 Component Ref Range & Units 05:20 1d ago 5d ago WBC 4.50 - 11.00 K/mcL 6.23 7.02 7.24 RBC 4.00 - 5.20 M/mcL 4.71 4.88 5.18 Hemoglobin 12.0 - 16.0 g/dL 13.2 13.6 14.3 Hematocrit 36.0 - 46.0 % 40.6 41.3 43.5 MCV 80.0 - 100.0 fL 86.2 84.6 84.0 MCH 26.0 - 34.0 pg 28.0 27.9 27.6 MCHC 31.0 - 37.0 g/dL 32.5 32.9 32.9 Platelets 150 - 400 K/mcL 203 222 223 Basic Metabolic Panel Component Ref Range & Units 05:20 1d ago 2d ago 5d ago Sodium 135 - 145 mmol/L 140 138 139 139 Potassium 3.5 - 5.1 mmol/L 3.5 2.9Low 3.5 2.8Low Chloride 98 - 108 mmol/L 103 100 99 99 Bicarbonate 21 - 32 mmol/L 30 32 29 31 Anion Gap 10 - 20 mmol/L 11 9Low 15 12 Glucose 65 - 99 mg/dL 127High 135High 141High 121High BUN 8 - 25 mg/dL 13 15 16 14 Creatinine 0.60 - 1.20 mg/dL 0.78 0.84 0.85 0.79 06/06/2019 - X-Ray right shoulder IMPRESSION: - Cortical irregularity suggesting impacted fracture in the humeral head/neck area. This is only demonstrated on the internal rotation view. Further evaluation is recommended/indicated with CT. Differential includes an artifact of positioning. - Findings suggest pleural thickening along the RIGHT lateral chest wall. Interstitial accentuationin the visualized lung. If further evaluation is felt to be indicated, follow-up should be considered with chest x-ray. 06/06/2019 - X-Ray Right knee IMPRESSION: FINDINGS/ Status post total right knee arthroplasty. No evidence of hardware complication. No acute fracture or malalignment. No sizable joint effusion. Mild overlying soft tissue swelling. 06/05/2019 Venous Duplex 06/05/2019 Arterial Doppler Update from previous note Current Cultures: 06/05/2019 Blood Culture #2: In Progress; No Growth after 48 hours. Preliminary. 06/05/2019 Blood Culture #1: In Progress; No Growth 48 hours. Preliminary. 06/02/2019 Left Leg Wound Aerobic Culture: No Growth After 48 Hours. Final. 06/02/2019 Right Leg Wound Aerobic Culture: Normal Mariela After 48 Hours. Final. Current Antibiotics: Ancef 2 gm IV every 8 Hours Labs: CMP 06/06/2019 05:30 Glucose: 135 BUN: 15 Creatinine: 0.84 Sodium: 138 Potassium: 2.9 Total Protein: 6.4 Albumin: 3.1 Alk Phos: 83 AST: 18 ALT: 16 Total Bilirubin: 0.4 CBC 06/06/2019 05:30 WBC: 7.02 Hgb: 13.6 Hct: 41.3 Platelets: 222 Magnesium 06/06/2019 05:30 1.7 Results from last 7 days Lab Units 06/02/192000 SODIUM mmol/L 139 POTASSIUM mmol/L 2.8* CHLORIDE mmol/L 99 BUN mg/dL 14 CREATININE mg/dL 0.79 GLUCOSE mg/dL 121* CALCIUM mg/dL 8.9 Results from last 7 days Lab Units 06/02/192000 WBC K/mcL 7.24 HGB g/dL 14.3 HCT % 43.5 PLT K/mcL 223 Results from last 7 days Lab Units 06/02/192000 ALK PHOS U/L 98 BILIRUBIN TOTAL mg/dL 0.6 TOTAL PROTEIN g/dL 7.1 ALTR U/L 17 AST U/L 15 Current Cultures: 06/05/2019 Blood Culture #2: In Progress; No Growth to Date. Preliminary. 06/05/2019 Blood Culture #1: In Progress; No Growth to Date. Preliminary. 06/02/2019 Left Leg Wound Aerobic Culture: No Growth After 48 Hours. Final. 06/02/2019 Right Leg Wound Aerobic Culture: Normal Mariela After 48 Hours. Final. Radiology [facility]: MRI Lumbar Spine 01/30/2019 1. At L4-L5, there is degenerative grade 1 anterolisthesis secondary to facet arthropathy. There is severe spinal canal and bilateral lateral recess stenosis, and asymmetric mild to moderate left foraminal stenosis as described. 2. At L3-L4, there is moderate spinal canal stenosis and moderate bilateral foraminal stenosis as described. 3. At L5-S1, there is severe right and [id number] left neural foraminal stenosis as described. 4. Multiple small retroperitoneal lymph nodes are visualized, which are nonspecific. Left Hip/Pelvis X-Ray 09/16/2018 [facility]: 1. No acute osseous abnormality. 2. Mild left hip osteoarthrosis. 3. Mild enthesopathic change of the greater trochanter. Spine/Lumbosacral X-Ray 09/16/2018 [facility]: 1. No acute fracture, malalignment, or instability. 2. Moderate multilevel spondylosis with 3 mm degenerative anterolisthesis of L4 on L5. CVPS: Lower Arterial Doppler 06/05/2019 ordered Lower Venous Duplex 06/05/2019 ordered 2D Echo: not on file Surgeries: Please see above for surgical history Pathology: not on file * Sandra Cuello RN - 06/30/2019 7:15 AM EST Date: 06/30/2019 No new labs/ results as of last note: 06/23/2019 Update from previous note No Current antibiotic: Previous antibiotic: Keflex 500 mg PO daily x 1 week Ancef 2 grams IV every 8 hours Update from previous note Current Cultures: 06/02/2019 Left Leg Wound Aerobic Culture: No Growth After 48 Hours. Final. 06/02/2019 Right Leg Wound Aerobic Culture: Normal Mariela After 48 Hours. Final. Dressing: BLE - Unna boots. Remove on 06/28/2019. Lotrison daily to BLE after that. documented in this encounter* Paul Hurley MD - 02/16/2020 10:14 PM EDT Subjective Patient ID: Liz Bro is a 70 y.o. female. Patient 70-year-old female with history of morbid obesity seen at the office for routine follow-up patient doing well no new complaints. The following portions of the patient's history were reviewed and updated as appropriate: allergies, current medications, past family history, past medical history, past social history, past surgicalhistory, and problem list. Past Medical History: Diagnosis Date Arthritis Asthma CHF (congestive heart failure) ([facility]) COPD (chronic obstructive pulmonary disease) ([facility]) Disease of thyroid gland GERD (gastroesophageal reflux disease) HTN (hypertension), benign 02/16/2020 Type 2 diabetes mellitus without complication, without long-term current use of insulin ([facility]) 02/16/2020 Past Surgical History: Procedure Laterality Date APPENDECTOMY and gallbladder at same time BREAST SURGERY CARPAL TUNNEL RELEASE Bilateral 2019 EYE SURGERY JOINT REPLACEMENT Review of Systems Constitutional: Negative for activity change, appetite change, chills, diaphoresis, fatigue, fever and unexpected weight change. HENT: Negative for congestion. Eyes: Negative for visual disturbance. Respiratory: Negative for apnea, cough, choking, chest tightness, shortness of breath, wheezing andstridor. Cardiovascular: Negative for chest pain, palpitations and leg swelling. Gastrointestinal: Negative for abdominal pain, constipation, diarrhea and nausea. Genitourinary: Negative for difficulty urinating. Musculoskeletal: Negative for arthralgias. Skin: Negative for rash. Neurological: Negative for weakness. Psychiatric/Behavioral: The patient is not nervous/anxious. Patient's Medications New Prescriptions No medications on file Previous Medications ALBUTEROL 90 MCG/ACTUATION INHALER INHALE 2 PUFFS 4 TIMES A DAY NEEDED CARVEDILOL (COREG) 25 MG TABLET Take 25 mg by mouth 2 (two) times a day . CLOTRIMAZOLE-BETAMETHASONE (LOTRISONE) CREAM Apply topically 2 (two) times a day . Rash on both legs. . DOCUSATE SODIUM (COLACE) 100 MG CAPSULE Take 100 mg by mouth every 12 (twelve) hours as needed . FUROSEMIDE (LASIX) 40 MG TABLET Take 40 mg by mouth 2 (two) times a day 40 mg AM and 20 mg PM per patient . LEVOTHYROXINE (SYNTHROID, LEVOTHROID) 100 MCG TABLET TAKE 1 TABLET EVERY DAY OXYBUTYNIN (DITROPAN) 5 MG TABLET Take 5 mg by mouth 2 (two) times a day . POTASSIUM CHLORIDE (K-DUR) 10 MEQ CR TABLET Take 2 (two) tablets (20 mEq total) by mouth 2 (two) times a day . PRAVASTATIN (PRAVACHOL) 40 MG TABLET TAKE 1 TABLET BY MOUTH EVERY DAY SPIRONOLACTONE (ALDACTONE) 25 MG TABLET TAKE 1 TABLET BY MOUTH EVERY DAY Modified Medications No medications on file Discontinued Medications GABAPENTIN (NEURONTIN) 100 MG CAPSULE TAKE 1 CAPSULE BY MOUTH EVERYDAY AT BEDTIME LEVOTHYROXINE (SYNTHROID, LEVOTHROID) 50 MCG TABLET Take 50 mcg by mouth once . Objective Physical Exam Vitals signs reviewed. Constitutional: Appearance: Normal appearance. She is morbidly obese. HENT: Head: Normocephalic. Right Ear: Tympanic membrane, ear canal and external ear normal. Left Ear: Tympanic membrane, ear canal and external ear normal. Nose: Nose normal. Mouth/Throat: Mouth: Mucous membranes are moist. Pharynx: Oropharynx is clear. Eyes: Extraocular Movements: Extraocular movements intact. Conjunctiva/sclera: Conjunctivae normal. Pupils: Pupils are equal, round, and reactive to light. Neck: Musculoskeletal: Neck supple. Cardiovascular: Rate and Rhythm: Normal rate. Pulses: Normal pulses. Heart sounds: Normal heart sounds. Pulmonary: Effort: Pulmonary effort is normal. Breath sounds: Normal breath sounds. Abdominal: General: Abdomen is flat. Bowel sounds are normal. Musculoskeletal: Normal range of motion. Skin: General: Skin is warm. Neurological: General: No focal deficit present. Mental Status: She is alert. Psychiatric: Mood and Affect: Mood normal. Behavior: Behavior normal. Thought Content: Thought content normal. Judgment: Judgment normal. Assessment/Plan: Problem List Items Addressed This Visit Endocrine Type 2 diabetes mellitus without complication, without long-term current use of insulin (HCC) Relevant Orders Hemoglobin A1c Respiratory Chronic obstructive pulmonary disease (HCC) Cardiovascular and Mediastinum HTN (hypertension), benign Relevant Orders Comprehensive Metabolic Panel Magnesium Level Other Well adult health check - Primary Discussed about health maintenance including cancer screening and vaccinations. Relevant Orders Hepatitis C Antibody CBC and Differential Mammography Screening Bilateral Hypercholesteremia Relevant Orders Lipid Panel Morbid obesity (HCC) Lifestyle modification advised. Other Visit Diagnoses Encounter for screening colonoscopy Relevant Orders Ambulatory referral to Gastroenterology Paul Hurley MD documented in this encounter* Camila Olson, PT - 10/05/2018 10:39 AM EDT Physical Therapy Daily Treatment Note 10/05/2018 Diagnosis: ICD-10-CM 1. Lumbosacral radiculopathy M54.17 2. Sacroiliac joint pain M53.3 3. Pain of left hip joint M25.552 4. Trochanteric bursitis of left hip M70.62 Chief Complaint Patient presents with PT Treatment Back Pain Total Visits Attended: 4 Visit(s)/12 Frequency: 2-3x/week Duration: 4 weeks Total Visits Authorized: Medical Authorized End Date: 10/24/18 Subjective: Patient reports she has noticed some improvement. Still has more pain first thing in the morning and when she stands for long periods. Pain: 5/10 Low back and left hip Objective/Comparable Signs: Decreased stance phase time on LLE during ambulation with frontal plane trunk deviation. Therapeutic Exercise (MELISSA) Nu Step (Level) 8' + set-up (level 3) ITB stretch Figure 4 hip stretch Quad stretch HS stretch - seated 4x30 each Hip flexor stretch SKTC/DKTC Lumbar ROM - seated a. Rot b. Ext c. FLex a. 10x3 C. 1x10 Pelvic Tilts on SGB Abdominal Bracing: all seated 10x10 August 2x10 Kick 2x10 Walk outs SLR Opposite UE/LE 2x10 Seated scap squeezes 2x10 Seated rows TB x10 RTB Biceps curl MB 2#, 1x10 Alt. Isometric @ UEs Alt isometric trunk ROT Slow reversals @ UEs Bridges glute set 2x10 Hip ABD TB/Hip ADD 1x10x5 ADD; YTB w/ [id number] DL/SL Neuromuscular Re-education (Nm): Standing hip 3-way TB chops/lifts, pulls TB lateral stepping TB UE pumps TB ROT Manual Therapy: Joint Mobs: T/S; L/S a. P/A; b. Unilateral STM Modalities: IFC ESTIM MHP with exercises Assessment/Response to Treatment: Continues to alternate sets of UE vs LE movement to compensate for fatigue. Minor cues for pain free ROM. Added exs according to table above with no adverse sx. Pt required continuous supervision to perform reps and sets correctly and requires cuing for Hod time. Update HEP next visit if able. Plan for Next Visit: Continue to progress hip and core strengthening in seated as tolerated. Therapist Signature: Camila Olson PT Time in: 1045 Time out: 1130 Total Visit Time: 45 Min Total Treatment Time: 45 minutes Timed Code Treatment Minutes: 45 minutes Overall PT Visit Number: 4 Visit(s) PT G-Code Visit Number: 4 G-Code Visit(s) x3 [x] Therapeutic Exercise 83135 [] Neuromuscular Reeducation 09617 [] Manual Therapy 62219 [] Mechanical Traction 69392 [] Gait Training 76715 [] Iontophoresis 80307 [] Ultrasound 99962 [] Electric Stimulation 17264 documented in this encounter* Paul Hurley MD - 05/25/2020 7:49 PM EST Subjective Patient ID: Liz Bro is a 70 y.o. female. Patient is 70-year-old female with history of morbid obesity [facility] and [facility]. Swelling is chronic patient takes high dose of diuretics. Discussed in detail the complaints with fluid however fluid balance works. Patient understands insist that she drinks only water. Advised herto decrease the water intake and continue diuretics and will monitor. Leg pain more suggestive of neuropathy pain. Burning sensation with some numbness. Discussed about possible causes particularly that she has history of diabetes which could be contributing. In view of edema will defer gabapentin instead will try Cymbalta. We will start with 30 mg and gradually increase it to 60 same explained in detail. Patient's blood pressure is under control on current medication. Patient obesity is significantly contributing to her illness. Life style modification discussed. Maintenance including not limited to cancer screening and vaccination The following portions of the patient's history were reviewed and updated as appropriate: allergies, current medications, past family history, past medical history, past social history, past surgicalhistory, and problem list. Past Medical History: Diagnosis Date Arthritis Asthma CHF (congestive heart failure) ([facility]) COPD (chronic obstructive pulmonary disease) ([facility]) Disease of thyroid gland GERD (gastroesophageal reflux disease) HTN (hypertension), benign 02/16/2020 Type 2 diabetes mellitus without complication, without long-term current use of insulin ([facility]) 02/16/2020 Past Surgical History: Procedure Laterality Date APPENDECTOMY and gallbladder at same time BREAST EXCISIONAL BIOPSY Right cyst BREAST SURGERY CARPAL TUNNEL RELEASE Bilateral 2019 EYE SURGERY JOINT REPLACEMENT Review of Systems Constitutional: Negative for activity change, appetite change, chills, diaphoresis, fatigue, fever and unexpected weight change. HENT: Negative for congestion. Eyes: Negative for visual disturbance. Respiratory: Negative for apnea, cough, choking, chest tightness, shortness of breath, wheezing andstridor. Cardiovascular: Negative for chest pain, palpitations and leg swelling. Gastrointestinal: Negative for abdominal pain, constipation, diarrhea and nausea. Genitourinary: Negative for difficulty urinating. Musculoskeletal: Negative for arthralgias. Skin: Negative for rash. Neurological: Negative for weakness. Psychiatric/Behavioral: The patient is not nervous/anxious. Patient's Medications New Prescriptions DULOXETINE (CYMBALTA) 30 MG CAPSULE Take 1 (one) capsule (30 mg total) by mouth daily . Previous Medications ALBUTEROL 90 MCG/ACTUATION INHALER INHALE 2 PUFFS 4 TIMES A DAY NEEDED CARVEDILOL (COREG) 25 MG TABLET TAKE 1 TABLET BY MOUTH TWICE A DAY CLOTRIMAZOLE-BETAMETHASONE (LOTRISONE) CREAM Apply topically 2 (two) times a day . Rash on both legs. . DOCUSATE SODIUM (COLACE) 100 MG CAPSULE Take 100 mg by mouth every 12 (twelve) hours as needed . FUROSEMIDE (LASIX) 40 MG TABLET Take 40 mg by mouth 2 (two) times a day 40 mg AM and 20 mg PM per patient . GENTAMICIN (GARAMYCIN) 0.1 % CREAM APPLY TO LEFT LEG ULCER SITE ONCE A DAY LEVOTHYROXINE (SYNTHROID, LEVOTHROID) 100 [facility] TABLET TAKE 1 TABLET EVERY DAY OXYBUTYNIN (DITROPAN) 5 MG TABLET TAKE 1 TABLET BY MOUTH TWICE A DAY PRAVASTATIN (PRAVACHOL) 40 MG TABLET TAKE 1 TABLET BY MOUTH EVERY DAY SPIRONOLACTONE (ALDACTONE) 25 MG TABLET TAKE 1 TABLET BY MOUTH EVERY DAY Modified Medications Modified Medication Previous Medication POTASSIUM CHLORIDE 10 MEQ CR TABLET potassium chloride (K-DUR) 10 MEQ CR tablet Take 2 (two) tablets (20 mEq total) by mouth 2 (two) times a day . Take 2 (two) tablets (20 mEq total) by mouth 2 (two) times a day . Discontinued Medications AZITHROMYCIN (Z-ANGELES) 5 DAY DOSE PACK As directed . POTASSIUM CHLORIDE 20 MEQ TBER TAKE 2 TABLETS BY MOUTH TWICE A DAY Objective Physical Exam Constitutional: Appearance: Normal appearance. She is morbidly obese. HENT: Head: Normocephalic. Right Ear: External ear normal. Left Ear: External ear normal. Nose: Nose normal. Mouth/Throat: Mouth: Mucous membranes are moist. Pharynx: Oropharynx is clear. Eyes: Extraocular Movements: Extraocular movements intact. Conjunctiva/sclera: Conjunctivae normal. Pupils: Pupils are equal, round, and reactive to light. Neck: Musculoskeletal: Neck supple. Cardiovascular: Rate and Rhythm: Normal rate. Pulses: Normal pulses. Heart sounds: Normal heart sounds. Pulmonary: Effort: Pulmonary effort is normal. Breath sounds: Normal breath sounds. Abdominal: General: Abdomen is flat. Bowel sounds are normal. Musculoskeletal: Normal range of motion. Right lower le+ Edema present. Left lower le+ Pitting Edema present. Skin: General: Skin is warm. Neurological: General: No focal deficit present. Mental Status: She is alert. Psychiatric: Mood and Affect: Mood normal. Assessment/Plan: Problem List Items Addressed This Visit Cardiovascular and Mediastinum HTN (hypertension), benign - Primary Relevant Medications potassium chloride 10 MEQ CR tablet Chronic diastolic congestive heart failure (HCC) Relevant Orders Echocardiogram complete Musculoskeletal and Integument Age-related osteoporosis without current pathological fracture Relevant Orders XR Bone Density DEXA Axial Other Well adult health check Relevant Orders HIV 1/2 Screen (4th Generation) Hepatitis C Antibody CBC and Differential Comprehensive Metabolic Panel Magnesium Level Lipid Panel Hypercholesteremia Class 3 severe obesity due to excess calories with serious comorbidity and body mass index (BMI) of50.0 to 59.9 in adult (HCC) Hyperglycemia Relevant Medications DULoxetine (CYMBALTA) 30 MG capsule Flu vaccine need Relevant Orders Influenza vaccine IIV4 High Dose (Completed) Paul Hurley MD documented in this encounter* Camila Olson, PT - 10/19/2018 10:53 AM EDT Physical Therapy Daily Treatment Note 10/19/2018 Diagnosis: ICD-10-CM 1. Lumbosacral radiculopathy M54.17 2. Sacroiliac joint pain M53.3 3. Pain of left hip joint M25.552 4. Trochanteric bursitis of left hip M70.62 Chief Complaint Patient presents with PT Treatment Back Pain Hip Pain Total Visits Attended: 7 Visit(s)/12 Frequency: 2-3x/week Duration: 4 weeks Total Visits Authorized: Medical Authorized End Date: 10/24/18 Subjective: Patient reports her pain OKAY however rates it 8/10 ( when inquired about the qualitative discrepancy of her pain, pt reports she is confused and just wanted to walk better). Pain increases with rain and walking. Got new diabetic shoes. Pt had follow up with doctor and reports he extended therapy however does not have the referral wit her today; advised pt to bring it to next visit for documentation purposes. Pain: 8/10 Low back and left hip Objective/Comparable Signs: Decreased stance phase time on LLE during ambulation with frontal plane trunk deviation. Therapeutic Exercise (MELISSA) Nu Step (Level) 8' + set-up (level 3) ITB stretch Figure 4 hip stretch Quad stretch HS stretch - seated 4x30 each HOLD Hip flexor stretch SKTC/DKTC Lumbar ROM - seated a. Rot b. Ext c. FLex a. 10x3 C. 1x10 3-way Pelvic Tilts on SGB Abdominal Bracing: all seated 10x10 August 1x20 Kick 1x20 Walk outs 1x20 SLR Opposite UE/LE 1x20 Seated scap squeezes 1x20 Seated rows TB x20 RTB Biceps curl MB 2#, 1x20 Bridges glute set 2x10 Hip ABD TB/Hip ADD 1x20x5 ADD; RTB w/ [id number] DL/SL Neuromuscular Re-education (Nm): abdominal bracing in standing 10x10 , increased difficulty. Standing hip 3-way tap/step lateral x10 TB chops/lifts, pulls TB lateral stepping TB UE pumps TB ROT Manual Therapy: Joint Mobs: T/S; L/S a. P/A; b. Unilateral STM Modalities: IFC ESTIM x20' /c CP MHP with exercises Assessment/Response to Treatment: Increase LBP and hip pain with any WB or ambulation. Cues provided to maintain abdominal bracing with all exs. Plan for Next Visit: Continue to progress hip and core strengthening in seated as tolerated. Trial seated on SGB for increased core activation. Therapist Signature: Camila Olson, PT Time in: 1045 Time out: 1130 Total Visit Time: 45 Min Total Treatment Time: 45 minutes + 10' CP Timed Code Treatment Minutes: 45 minutes Overall PT Visit Number: 7 Visit(s) PT G-Code Visit Number: 7 G-Code Visit(s) x3 [x] Therapeutic Exercise 78085 [] Neuromuscular Reeducation 95927 [] Manual Therapy 44979 [] Mechanical Traction 01914 [] Gait Training 78363 [] Iontophoresis 75538 [] Ultrasound 40600 x1 [x] Electric Stimulation 76145 documented in this encounter* Jing Gutierrez RN - 06/23/2019 9:23 AM EST Associated Order(s): Unna Boot Compression Dressing Post-Procedure Diagnose(s): Venous insufficiency (chronic) (peripheral) Multi-layer Compression Wrap Procedure Performed for: Bilateral legs Performed by:: Clinician aw Procedural Pain: 0 Bandage Type: Compression Compression Layers: Multi-layer Compression Product Type: Unna boot Dressing Applied: No Extremity Location: Below Knee * Marilyn Pantoja MD - 06/23/2019 8:00 AM EST 06/06/2019 Patient Name: Liz Bro Admit Date: [id number] MR #: [id number] : 1950 Physicians: Paul Hurley MD (Family); No ref. provider found (Referring) Assessment and Plan: Impression New venous dermatitis Bilateral lower extremity cellulitis Bilateral venous insufficiency History of pulmonary edema Right prosthetic knee History of allergy to penicillin with nausea Patient on statin watch for interaction with Diflucan candidiasis of skin complaint of burning with Aldo bandages Plan Keflex 500 mg p.o. twice daily she has completed Unna compression boot bilaterally not too tight move on Wednesday Start Lotrisone to the lower extremity on she has a tube at home just put it once a day Revisit Wednesday KELTON were normal Venous ultrasound was negative for DVT Diabetic socks from drug or [employer] Previous DC Diflucan DC Ancef P.o. Keflex 500 twice daily for 1 week Tubigrip to the lower extremities Follow-up in the wound clinic on 19 June at 10:45 AM Tubigrip to both lower extremities during the daytime Previous note Diflucan 200 mg p.o. daily continue last dose will be tomorrow Lotrisone to the right and left leg skin once a day Aldo bandage to both lower extremities for venous insufficiency swelling to be discontinued because she complained of burning with the Aldo bandages will go back to Tubigrip I Change Ancef 2 g IV every 8h for complete resolution by Wednesday Arterial Dopplers KELTON normal Venous Dopplers negative for DVT Discontinue all dressings Aldo bandage with Lotrisone Consider Unna compression bilaterally in the wound clinic on follow-up if needed Right and left leg cultures normal mariela Blood cultures no growth We will plan discharge tomorrow if possible on no p.o. antibiotics as the lower extremities are appearing much better She will follow-up with Dr. Joseph in the wound clinic on this Wednesday Chief Complaint/Reason for Visit: I am seeing this patient at the request of Dr. Marilyn MD. I have reviewed the current hospital record, available laboratory, cardiology and imaging studies as well as available out patient records. History of Present Illness: Admission H&P by Dr. Marilyn MD on 06/03/2019 Liz Bro is a 69 y.o. female presenting from doctor's office with a cellulitis of the lower extremities unresolved for several months. Had a trial of oral antibiotic, failed outpatient treatment. Elderly white female states that since March she had right and left anterior leg area blisters was seeing Dr. 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 Allergies: Antifungal - imidazole; Aspirin; Codeine; Fluoxetine hcl; and Salicylates Current Outpatient Medications: carvedilol (COREG) 25 MG tablet, Take 25 mg by mouth 2 (two) times a day ., Disp: , Rfl: 3 clotrimazole-betamethasone (LOTRISONE) cream, Apply topically 2 (two) times a day . Rash on both legs. ., Disp: 30 g, Rfl: 0 docusate sodium (COLACE) 100 MG capsule, Take 100 mg by mouth every 12 (twelve) hours as needed ., Disp: , Rfl: 3 furosemide (LASIX) 40 MG tablet, Take 40 mg by mouth 2 (two) times a day 40 mg AM and 20 mg PM per patient ., Disp: , Rfl: 3 gabapentin (NEURONTIN) 100 MG capsule, Take 100 mg by mouth once At bedtime ., Disp: , Rfl: levothyroxine (SYNTHROID, LEVOTHROID) 50 MCG tablet, Take 50 mcg by mouth once ., Disp: , Rfl: oxybutynin (DITROPAN) 5 MG tablet, Take 5 mg by mouth 2 (two) times a day ., Disp: , Rfl: 5 potassium chloride (K-DUR) 10 MEQ CR tablet, Take 2 (two) tablets (20 mEq total) by mouth 2 (two) times a day ., Disp: 120 tablet, Rfl: 0 pravastatin (PRAVACHOL) 40 MG tablet, Take 40 mg by mouth daily ., Disp: , Rfl: 2 spironolactone (ALDACTONE) 25 MG tablet, Take 1 (one) tablet (25 mg total) by mouth daily Start: 06/10/19., Disp: 30 tablet, Rfl: 0 PMH/PSH/SH/FH reviewed, no change except: She was in the hospital receiving IV antibiotics Review of Systems: All systems were reviewed and negative except: Denies any pain in the lower extremities denies any diarrhea Patient is clinically functioning much better since we have been treated her with the IV antibiotics followed by p.o. antibiotic Medications Reviewed. BP 149/79 Pulse 77 Temp 97.5 F (36.4 C) Resp (!) 20 Ht 5' 6 SpO2 96% BMI 40.67 kg/m Chart Reviewed. Constitutional: Awake alert answers all HENT: Pupils reactive Head: No oral candidiasis Eyes: No icterus Neck: Supple Cardiovascular: Heart S1-S2 2 x 6 systolic murmur present no S3 Murmur Pulmonary/Chest: No crackles at the bases she has a history of pulmonary edema in the past Abdominal: Obese soft bowel sounds present Musculoskeletal: Right knee prosthesis no redness noted no calf tenderness Neurological: She has neuropathy etiology unclear she is borderline diabetic bilateral lower extremities neuropathy Skin: Right and left leg cellulitis has resolved completely wound: The right and left leg anterior area there were blisters before I do not see any open ulceration now They have healed up and stayed healed Candidiasis of the skin present improved with Lotrisone Strong: IV: Other: Decreased pulses right and left foot KELTON was normal Cellulitis much better dermatitis present candidiasis much better no open ulcerations Wound 06/19/19 1 Pre-tibial Right (Active) Wound Image 06/23/2019 7:58 AM Wound Length (cm) 0 cm 06/23/2019 7:58 AM Wound Width (cm) 0 cm 06/23/2019 7:58 AM Wound Depth (cm) 0 cm 06/23/2019 7:58 AM Wound Surface Area (cm^2) 0 cm^2 06/23/2019 7:58 AM Wound Volume (cm^3) 0 cm^3 06/23/2019 7:58 AM Area % Change 0 06/23/2019 7:58 AM Drainage Amount None 06/23/2019 7:58 AM Adrianna-wound Assessment Temperature WNL;Intact 06/23/2019 7:58 AM Cleansed Soap and water 06/23/2019 7:58 AM Primary Dressing Gauze roll 06/19/2019 11:39 AM Secondary Dressing Gauze roll;Elastic bandage (Self-adherent) 06/19/2019 11:39 AM Compression Dressing Unna boot 06/19/2019 11:39 AM Wound 06/19/19 2 Pre-tibial Left (Active) Wound Image 06/23/2019 7:58 AM Wound Length (cm) 0 cm 06/23/2019 7:58 AM Wound Width (cm) 0 cm 06/23/2019 7:58 AM Wound Depth (cm) 0 cm 06/23/2019 7:58 AM Wound Surface Area (cm^2) 0 cm^2 06/23/2019 7:58 AM Wound Volume (cm^3) 0 cm^3 06/23/2019 7:58 AM Area % Change 0 06/23/2019 7:58 AM Drainage Amount None 06/23/2019 7:58 AM Adrianna-wound Assessment Temperature WNL;Intact 06/23/2019 7:58 AM Cleansed Soap and water 06/23/2019 7:58 AM Secondary Dressing Gauze roll;Elastic bandage (Self-adherent) 06/19/2019 11:39 AM Compression Dressing Unna boot 06/19/2019 11:39 AM Laboratory and Additional Data Reviewed: Date: 06/23/2019 No new labs/ results as of last note: 06/19/2019 Update from previous note Current antibiotic: Previous antibiotic: Keflex 500 mg PO daily x 1 week Ancef 2 grams IV every 8 hours Update from previous note Current Cultures: 06/02/2019 Left Leg Wound Aerobic Culture: No Growth After 48 Hours. Final. 06/02/2019 Right Leg Wound Aerobic Culture: Normal Mariela After 48 Hours. Final. Dressing: BLE - Unna boots Date: 06/19/2019 No new labs/ results as of last note: 06/09/2019 Update from previous note Current antibiotic: Keflex 500 mg daily x 1 week Previous antibiotic: Ancef 2 grams IV every 8 hours Radiology: 06/08/2019 - CT Right Shoulder FINDINGS: There is no acute fracture or dislocation. Glenohumeral alignment is maintained. Mild arthritic disease of the AC joint without subluxation. No indication of rotator cuff atrophy. There are subchondral cysts at the insertion of the supraspinatus. IMPRESSION: 1. 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 2. There is evidence of chronic mild rotator cuff tendinopathy. No evidence of muscle atrophy. Update from previous note Current Cultures: 06/05/2019 Blood Culture #2: In Progress; No Growth after 5 days. Final. 06/05/2019 Blood Culture #1: In Progress; No Growth after 5 days. Final. 06/02/2019 Left Leg Wound Aerobic Culture: No Growth After 48 Hours. Final. 06/02/2019 Right Leg Wound Aerobic Culture: Normal Mariela After 48 Hours. Final. Date: 06/09/2019 New labs/ results as of last note T-Max: 98.1 Output: Urine 1100 ml Stool not recorded Current antibiotic: Ancef 2 grams IV every 8 hours Radiology: 06/08/2019 - CT Right Shoulder FINDINGS: There is no acute fracture or dislocation. Glenohumeral alignment is maintained. Mild arthritic disease of the AC joint without subluxation. No indication of rotator cuff atrophy. There are subchondral cysts at the insertion of the supraspinatus. IMPRESSION: 1. 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 2. There is evidence of chronic mild rotator cuff tendinopathy. No evidence of muscle atrophy. Update from previous note Current Cultures: 06/05/2019 Blood Culture #2: In Progress; No Growth after 48 hours. Preliminary. 06/05/2019 Blood Culture #1: In Progress; No Growth 48 hours. Preliminary. 06/02/2019 Left Leg Wound Aerobic Culture: No Growth After 48 Hours. Final. 06/02/2019 Right Leg Wound Aerobic Culture: Normal Mariela After 48 Hours. Final. Date:06/08/2019 New labs/ results as of last note T-Max: 97.9 Output: Urine 1750 ml Stool not recorded Current antibiotic: Ancef 2 grams IV every 8 hours Radiology: 06/08/2019 - CT Right Shoulder - results pending 06/08/2019 - Chest x-ray FINDINGS: Frontal and lateral views of the chest are submitted. The cardiomediastinal silhouette is enlarged, stable. Lungs, pleural spaces and pulmonary vasculature are normal. No acute osseous lesions are seen. IMPRESSION: 1. No acute cardiopulmonary abnormality. 2. Stable cardiomegaly. Update from previous note Current Cultures: 06/05/2019 Blood Culture #2: In Progress; No Growth after 48 hours. Preliminary. 06/05/2019 Blood Culture #1: In Progress; No Growth 48 hours. Preliminary. 06/02/2019 Left Leg Wound Aerobic Culture: No Growth After 48 Hours. Final. 06/02/2019 Right Leg Wound Aerobic Culture: Normal Mariela After 48 Hours. Final. Date: 06/07/2019 New labs/ results as of last note T-Max: 97.7 Output: Not recorded Stool not recorded Current antibiotic: Ancef 2 gram IV every 8 hours Hepatic Function Panel Component Ref Range & Units 05:20 (06/07/19) 1d ago (06/06/19) 1d ago (06/06/19) 5d ago (06/02/19) Total Protein 6.0 - 8.0 g/dL 6.3 6.4 7.1 Albumin 3.2 - 5.2 g/dL 3.0Low 3.1Low 3.6 Total Bilirubin 0.0 - 1.3 mg/dL 0.3 0.4 0.6 Bilirubin, Direct 0.0 - 0.4 mg/dL 0.1 <0.1 Alkaline Phosphatase 40 - 150 U/L 80 83 98 AST 0 - 45 U/L 17 18 15 ALT 14 - 65 U/L 11Low 16 17 Magnesium Level 06/06/2019 Component Ref Range & Units 05:20 1d ago 2d ago Magnesium 1.6 - 2.4 mg/dL 1.7 1.7 1.8 CBC Auto Differential 06/06/2019 Component Ref Range & Units 05:20 1d ago 5d ago WBC 4.50 - 11.00 K/mcL 6.23 7.02 7.24 RBC 4.00 - 5.20 M/mcL 4.71 4.88 5.18 Hemoglobin 12.0 - 16.0 g/dL 13.2 13.6 14.3 Hematocrit 36.0 - 46.0 % 40.6 41.3 43.5 MCV 80.0 - 100.0 fL 86.2 84.6 84.0 MCH 26.0 - 34.0 pg 28.0 27.9 27.6 MCHC 31.0 - 37.0 g/dL 32.5 32.9 32.9 Platelets 150 - 400 K/mcL 203 222 223 Basic Metabolic Panel Component Ref Range & Units 05:20 1d ago 2d ago 5d ago Sodium 135 - 145 mmol/L 140 138 139 139 Potassium 3.5 - 5.1 mmol/L 3.5 2.9Low 3.5 2.8Low Chloride 98 - 108 mmol/L 103 100 99 99 Bicarbonate 21 - 32 mmol/L 30 32 29 31 Anion Gap 10 - 20 mmol/L 11 9Low 15 12 Glucose 65 - 99 mg/dL 127High 135High 141High 121High BUN 8 - 25 mg/dL 13 15 16 14 Creatinine 0.60 - 1.20 mg/dL 0.78 0.84 0.85 0.79 06/06/2019 - X-Ray right shoulder IMPRESSION: - Cortical irregularity suggesting impacted fracture in the humeral head/neck area. This is only demonstrated on the internal rotation view. Further evaluation is recommended/indicated with CT. Differential includes an artifact of positioning. - Findings suggest pleural thickening along the RIGHT lateral chest wall. Interstitial accentuationin the visualized lung. If further evaluation is felt to be indicated, follow-up should be considered with chest x-ray. 06/06/2019 - X-Ray Right knee IMPRESSION: FINDINGS/ Status post total right knee arthroplasty. No evidence of hardware complication. No acute fracture or malalignment. No sizable joint effusion. Mild overlying soft tissue swelling. 06/05/2019 Venous Duplex 06/05/2019 Arterial Doppler Update from previous note Current Cultures: 06/05/2019 Blood Culture #2: In Progress; No Growth after 48 hours. Preliminary. 06/05/2019 Blood Culture #1: In Progress; No Growth 48 hours. Preliminary. 06/02/2019 Left Leg Wound Aerobic Culture: No Growth After 48 Hours. Final. 06/02/2019 Right Leg Wound Aerobic Culture: Normal Mariela After 48 Hours. Final. Current Antibiotics: Ancef 2 gm IV every 8 Hours Labs: CMP 06/06/2019 05:30 Glucose: 135 BUN: 15 Creatinine: 0.84 Sodium: 138 Potassium: 2.9 Total Protein: 6.4 Albumin: 3.1 Alk Phos: 83 AST: 18 ALT: 16 Total Bilirubin: 0.4 CBC 06/06/2019 05:30 WBC: 7.02 Hgb: 13.6 Hct: 41.3 Platelets: 222 Magnesium 06/06/2019 05:30 1.7 Results from last 7 days Lab Units 06/02/192000 SODIUM mmol/L 139 POTASSIUM mmol/L 2.8* CHLORIDE mmol/L 99 BUN mg/dL 14 CREATININE mg/dL 0.79 GLUCOSE mg/dL 121* CALCIUM mg/dL 8.9 Results from last 7 days Lab Units 06/02/192000 WBC K/mcL 7.24 HGB g/dL 14.3 HCT % 43.5 PLT K/mcL 223 Results from last 7 days Lab Units 06/02/192000 ALK PHOS U/L 98 BILIRUBIN TOTAL mg/dL 0.6 TOTAL PROTEIN g/dL 7.1 ALTR U/L 17 AST U/L 15 Current Cultures: 06/05/2019 Blood Culture #2: In Progress; No Growth to Date. Preliminary. 06/05/2019 Blood Culture #1: In Progress; No Growth to Date. Preliminary. 06/02/2019 Left Leg Wound Aerobic Culture: No Growth After 48 Hours. Final. 06/02/2019 Right Leg Wound Aerobic Culture: Normal Mariela After 48 Hours. Final. Radiology [facility]: MRI Lumbar Spine 01/30/2019 1. At L4-L5, there is degenerative grade 1 anterolisthesis secondary to facet arthropathy. There is severe spinal canal and bilateral lateral recess stenosis, and asymmetric mild to moderate left foraminal stenosis as described. 2. At L3-L4, there is moderate spinal canal stenosis and moderate bilateral foraminal stenosis as described. 3. At L5-S1, there is severe right and [id number] left neural foraminal stenosis as described. 4. Multiple small retroperitoneal lymph nodes are visualized, which are nonspecific. Left Hip/Pelvis X-Ray 09/16/2018 [facility]: 1. No acute osseous abnormality. 2. Mild left hip osteoarthrosis. 3. Mild enthesopathic change of the greater trochanter. Spine/Lumbosacral X-Ray 09/16/2018 [facility]: 1. No acute fracture, malalignment, or instability. 2. Moderate multilevel spondylosis with 3 mm degenerative anterolisthesis of L4 on L5. CVPS: Lower Arterial Doppler 06/05/2019 ordered Lower Venous Duplex 06/05/2019 ordered 2D Echo: not on file Surgeries: Please see above for surgical history Pathology: not on file * Sandra Cuello RN - 06/23/2019 8:00 AM EST Date: 06/23/2019 No new labs/ results as of last note: 06/19/2019 Update from previous note Current antibiotic: Previous antibiotic: Keflex 500 mg PO daily x 1 week Ancef 2 grams IV every 8 hours Update from previous note Current Cultures: 06/02/2019 Left Leg Wound Aerobic Culture: No Growth After 48 Hours. Final. 06/02/2019 Right Leg Wound Aerobic Culture: Normal Mariela After 48 Hours. Final. Dressing: BLE - Unna boots documented in this encounter* Marjorie Mccullough, - 02/16/2019 10:00 AM EDT Lumbar MRI in January 2019: Upon my review of the images, I noted fairly well-preserved disk spaces throughout the lumbar spine, which is better than I would expect for her age. Severe facet degenerative changes at L4-5, which is mild at L5-S1. No significant posterior osteophytosis noted at the L5-S1 facets on either side. There is severe central canal stenosis at L4-5 and just moderate at L3-4 and L4-5. Foraminal stenosis noted of moderate degree on the left at L5-S1 and severe on the left at L4-5. Just mild right L5-S1 foraminal stenosis noted. (DOC:[id number]) HISTORY OF PRESENT ILLNESS: Continued low back pain provoked by standing and walking. She does have radiation of pain into the buttock and into the posterior thighs bilaterally, right worse than left, but not every day does she have the radiation of pain. Her is present and supplemented the history. PHYSICAL EXAMINATION: HEENT: EOMI. GENERAL: No acute distress. LOWER EXTREMITY NEURO EXAM: Strength 5/5 bilateral ankle dorsiflexion. Sensation diminished to light touch in the stocking pattern from her knees distal with a distal predominance. History of diabetic neuropathy. Spurling's negative bilaterally. IMPRESSION: Multifactorial low back, buttock, and posterior thigh discomfort. Facetogenic low back pain in the setting of severe L4-5 facet degenerative changes, but just mild degenerative changes at L5-S1 with no posterior facet osteophytosis. Severe L4-5 central canal stenosis. Scattered foraminal stenosis, worse on the left than the right. Fairly well-preserved disk spaces for someone of her age. RECOMMENDATIONS: She has already done more than 6 weeks of PT. I encouraged her to do her home exercises and we gave her another handout as a reminder for her low back to be done gently as tolerated. Medication Management: She is on gabapentin 100 m, 0, 1. She does not need a refill yet. She states this helps her sleep. She is rather medication averse. Meloxicam helped a little bit, but she is afraid of the side effects. She tried baclofen, but that did not help. No need for a muscle relaxant right now. We discussed injections including facet injections, but she does not feel like her pain is bad enough to need that right now. She wants to think about it some more. In the future, we can consider bilateral L5-S1 facet joint steroid injections because she does not have significant OA in those joints that would prevent steroid injections in those joints. Follow up as needed at this point. (DOC:[id number]) PATIENT IDENTIFICATION: 68 y.o. female with a history of CHF, diabetes, diabetic neuropathy, obesity, right total knee arthroplasty, lower extremity cellulitis, who was referred by Dr. Gonzalez in [facility] for low back and left lower extremity discomfort that started and early to mid August 2018 with no particular inciting event. Rx to date: More than 6 wks of physical therapy, 24 visits actually, that ended December 09, 2018. Chief Complaint Patient presents with Back Pain Vital Signs: Height 1.676 m (5' 6 ), weight (!) 141.5 kg (312 lb). ROS: Negative for fever/chills Negative for numbness/tingling in extremities [place]: Pain location: Low back Pain ratin/10 Pain aggravated by: standing,walking Numbness or tingling in arm or leg? no IMAGING/LABS/STUDIES: reviewed MRI Lumbar spine 01/30/19 REPORT:1. At L4-L5, there is degenerative grade 1 anterolisthesis secondary to facet arthropathy. There is severe spinal canal and bilateral lateral recess stenosis, and asymmetric mild to moderate left foraminal stenosis as described. 2. At L3-L4, there is moderate spinal canal stenosis and moderate bilateral foraminal stenosis as described. 3. At L5-S1, there is severe right and [id number] left neural foraminal stenosis as described. 4. Multiple small retroperitoneal lymph nodes are visualized, which are nonspecific. XR Lumbar spine 09/16/18: Upon my review of the images, I noted Moderate disc thinning at L5-S1. Moderate to severe L5-S1 facet joint degenerative change. Moderate L4-5 facet joint degenerative change. REPORT:1. No acute fracture, malalignment, or instability. 2. Moderate multilevel spondylosis with 3 mm degenerative anterolisthesis of L4 on L5. XR Hip left 09/16/28: Upon my review of the images I noted mild-moderate thinning of the joint spacein the bilateral hip joints. REPORT:1. No acute osseous abnormality. 2. Mild left hip osteoarthrosis. 3. Mild enthesopathic change of the greater trochanter. XR Lumbar spine 08/20/16 REPORT:1. Unchanged appearance of mild degenerative change and minimal chronic vertebral body height loss in the lower thoracic and lumbar spine as above. 2. Calcified atheromatous plaque. LABS: Outside blood work from [facility] 12/30/17: AST 17, ALT 24, creatinine 0.86, platelets 249 Lab Results Component Value Date ALT 17 09/22/2018 AST 22 09/22/2018 CREATSERUM 0.7 09/22/2018 PLATELET 241 09/22/2018 She has a past medical history of Congestive heart failure, Essential hypertension, benign, Hyperlipidemia, and Hyperthyroidism. Problem list: does not have a problem list on file. She has a past surgical history that includes cholecystectomy; tubal ligation; foot surgery (Right); knee surgery (Right); and endoscopy carpal tunnel release (Bilateral). Family History Problem Relation Age of Onset Diabetes Sister Other - Specify Sister COPD Social History Tobacco Use Smoking status: Former Smoker Smokeless tobacco: Never Used Substance Use Topics Alcohol use: Not Currently Drug use: Never She has a current medication list which includes the following prescription(s): carvedilol, docusate calcium, furosemide, levothyroxine, ondansetron, oxybutynin, pravastatin, and tramadol. She is allergic to asa [aspirin]; codeine; fluoxetine; miconazole; neurontin [gabapentin]; and penicillins. The above report was entered using [employer] voice recognition medical dictation software. Although I have reviewed this report for accuracy, certain words and phrases may not be entered as intended. documented in this encounter* Paul Hurley MD - 09/09/2020 11:10 AM EDT Subjective Patient ID: Liz Bro is a 70 y.o. female. Patient is 70-year-old female with history of diabetes, hypertension, asthma seen for routine follow-up. Patient has history of major depression depressive symptoms are not completely controlled. Discussed about the option patient is willing to try full dose of duloxetine. Same prescription sent. Patient reports no history suggestive of any self harm or bad depression. Patient has history of hypertension blood pressure was high on arrival subsequent blood pressure check is better. Patient denies any pertinent symptoms like headache dizziness chest pain shortness ofbreath or leg edema. Patient is morbidly obese. Discussed about lifestyle modification how it can help her with blood pressure. History of diabetes patient denies any polyuria polydipsia polyphagia. No history suggestive of hypoglycemia. History of hypercholesterolemia patient compliant with medication no side effect noted. Discussed about health maintenance including but not limited to vaccination and cancer screening. The following portions of the patient's history were reviewed and updated as appropriate: allergies, current medications, past family history, past medical history, past social history, past surgicalhistory, and problem list. Past Medical History: Diagnosis Date Arthritis Asthma CHF (congestive heart failure) (HCC) COPD (chronic obstructive pulmonary disease) (HCC) Disease of thyroid gland GERD (gastroesophageal reflux disease) HTN (hypertension), benign 02/16/2020 Type 2 diabetes mellitus without complication, without long-term current use of insulin (HCC) 02/16/2020 Past Surgical History: Procedure Laterality Date APPENDECTOMY and gallbladder at same time BREAST EXCISIONAL BIOPSY Right cyst BREAST SURGERY CARPAL TUNNEL RELEASE Bilateral 2019 EYE SURGERY JOINT REPLACEMENT Review of Systems Constitutional: Negative for activity change, appetite change, chills, diaphoresis, fatigue, fever and unexpected weight change. HENT: Negative for congestion. Eyes: Negative for visual disturbance. Respiratory: Negative for apnea, cough, choking, chest tightness, shortness of breath, wheezing andstridor. Cardiovascular: Negative for chest pain, palpitations and leg swelling. Gastrointestinal: Negative for abdominal pain, constipation, diarrhea and nausea. Genitourinary: Negative for difficulty urinating. Musculoskeletal: Negative for arthralgias. Skin: Negative for rash. Neurological: Negative for weakness. Psychiatric/Behavioral: The patient is not nervous/anxious. Patient's Medications New Prescriptions No medications on file Previous Medications ALBUTEROL 90 MCG/ACTUATION INHALER INHALE 2 PUFFS 4 TIMES A DAY NEEDED GENTAMICIN (GARAMYCIN) 0.1 % CREAM APPLY TO LEFT LEG ULCER SITE ONCE A DAY Modified Medications Modified Medication Previous Medication CARVEDILOL (COREG) 25 MG TABLET carvediloL (COREG) 25 MG tablet Take 1 (one) tablet (25 mg total) by mouth 2 (two) times a day . TAKE 1 TABLET BY MOUTH TWICE A DAY DOCUSATE SODIUM (COLACE) 100 MG CAPSULE docusate sodium (COLACE) 100 MG capsule Take 1 (one) capsule (100 mg total) by mouth every 12 (twelve) hours as needed . Take 100 mg by mouth every 12 (twelve) hours as needed . DULOXETINE (CYMBALTA) 60 MG CAPSULE DULoxetine (CYMBALTA) 30 MG capsule Take 1 (one) capsule (60 mg total) by mouth daily . Take 1 (one) capsule (30 mg total) by mouth daily . FUROSEMIDE (LASIX) 40 MG TABLET furosemide (LASIX) 40 MG tablet Take 1 (one) tablet (40 mg total) by mouth See Admin Instructions 40 mg AM and 20 mg PM per patient. Take 40 mg by mouth 2 (two) times a day 40 mg AM and 20 mg PM per patient . LEVOTHYROXINE (SYNTHROID, LEVOTHROID) 100 MCG TABLET levothyroxine (SYNTHROID, LEVOTHROID) 100 MCG tablet Take 1 (one) tablet (100 mcg total) by mouth daily . TAKE 1 TABLET EVERY DAY OXYBUTYNIN (DITROPAN) 5 MG TABLET oxybutynin (DITROPAN) 5 MG tablet Take 1 (one) tablet (5 mg total) by mouth 2 (two) times a day . TAKE 1 TABLET BY MOUTH TWICE A DAY POTASSIUM CHLORIDE 10 MEQ CR TABLET potassium chloride 10 MEQ CR tablet Take 2 (two) tablets (20 mEq total) by mouth 2 (two) times a day . Take 2 (two) tablets (20 mEq total) by mouth 2 (two) times a day . PRAVASTATIN (PRAVACHOL) 40 MG TABLET pravastatin (PRAVACHOL) 40 MG tablet Take 1 (one) tablet (40 mg total) by mouth daily . TAKE 1 TABLET BY MOUTH EVERY DAY SPIRONOLACTONE (ALDACTONE) 25 MG TABLET spironolactone (ALDACTONE) 25 MG tablet Take 1 (one) tablet (25 mg total) by mouth daily . Take 1 (one) tablet (25 mg total) by mouth daily. Discontinued Medications CLOTRIMAZOLE-BETAMETHASONE (LOTRISONE) CREAM APPLY TO AFFECTED AREA TWICE A DAY GABAPENTIN (NEURONTIN) 100 MG CAPSULE TAKE 1 CAPSULE BY MOUTH EVERYDAY AT BEDTIME Objective Physical Exam Vitals signs reviewed. Constitutional: Appearance: Normal appearance. She is morbidly obese. HENT: Head: Normocephalic. Right Ear: External ear normal. Left Ear: External ear normal. Nose: Nose normal. Mouth/Throat: Mouth: Mucous membranes are moist. Pharynx: Oropharynx is clear. Eyes: Extraocular Movements: Extraocular movements intact. Conjunctiva/sclera: Conjunctivae normal. Pupils: Pupils are equal, round, and reactive to light. Neck: Musculoskeletal: Neck supple. Cardiovascular: Rate and Rhythm: Normal rate. Pulses: Normal pulses. Heart sounds: Normal heart sounds. Pulmonary: Effort: Pulmonary effort is normal. Breath sounds: Normal breath sounds. Abdominal: General: Bowel sounds are normal. Palpations: Abdomen is soft. Musculoskeletal: Normal range of motion. Skin: General: Skin is warm. Neurological: General: No focal deficit present. Mental Status: She is alert. Psychiatric: Mood and Affect: Mood normal. Assessment/Plan: Problem List Items Addressed This Visit Endocrine Type 2 diabetes mellitus with diabetic polyneuropathy, without long-term current use of insulin (HCC) Relevant Medications DULoxetine (CYMBALTA) 60 MG capsule Other Relevant Orders Hemoglobin A1c Microalbumin/Creatinine Ratio, UR Random Ambulatory referral to Gastroenterology Respiratory Chronic obstructive pulmonary disease (HCC) Cardiovascular and Mediastinum Essential (primary) hypertension Relevant Medications carvediloL (COREG) 25 MG tablet furosemide (LASIX) 40 MG tablet potassium chloride 10 MEQ CR tablet spironolactone (ALDACTONE) 25 MG tablet Chronic diastolic congestive heart failure (HCC) Relevant Medications carvediloL (COREG) 25 MG tablet furosemide (LASIX) 40 MG tablet pravastatin (PRAVACHOL) 40 MG tablet spironolactone (ALDACTONE) 25 MG tablet Other Well adult health check Relevant Orders CBC and Differential Comprehensive Metabolic Panel Magnesium Level Lipid Panel Hepatitis C Antibody Hypercholesteremia Relevant Medications pravastatin (PRAVACHOL) 40 MG tablet Class 3 severe obesity due to excess calories with serious comorbidity and body mass index (BMI) of50.0 to 59.9 in adult (HCC) Constipation Relevant Medications docusate sodium (COLACE) 100 MG capsule Other Visit Diagnoses Encounter for screening colonoscopy Hypothyroidism, unspecified type Relevant Medications levothyroxine (SYNTHROID, LEVOTHROID) 100 MCG tablet Urge incontinence of urine Relevant Medications oxybutynin (DITROPAN) 5 MG tablet At high risk for falls Paul Hurley MD Depression Screening 09/09/2020 Little interest or pleasure in doing things 0 Feeling down, depressed, or hopeless 2 PHQ-2 Total Score 2 Trouble falling or staying asleep, or sleeping too much 2 Feeling tired or having little energy 1 Poor appetite or overeating 0 Feeling bad about yourself - or that you are a failure or have let yourself or your family down 1 Trouble concentrating on things, such as reading the newspaper or watching television 1 Moving or speaking so slowly that other people could have noticed. Or the opposite - being so fidgety or restless that you have been moving around a lot more than usual 0 Thoughts that you would be better off , or of hurting yourself in some way 0 PHQ-9 Total Score 7 If you checked off any problems, how difficult have these problems made it for you to do your work,take care of things at home, or get along with other people? Somewhat difficult Depression Screening 09/09/2020 Little interest or pleasure in doing things 0 Feeling down, depressed, or hopeless 2 PHQ-2 Total Score 2 Trouble falling or staying asleep, or sleeping too much 2 Feeling tired or having little energy 1 Poor appetite or overeating 0 Feeling bad about yourself - or that you are a failure or have let yourself or your family down 1 Trouble concentrating on things, such as reading the newspaper or watching television 1 Moving or speaking so slowly that other people could have noticed. Or the opposite - being so fidgety or restless that you have been moving around a lot more than usual 0 Thoughts that you would be better off , or of hurting yourself in some way 0 PHQ-9 Total Score 7 If you checked off any problems, how difficult have these problems made it for you to do your work,take care of things at home, or get along with other people? Somewhat difficult documented in this encounter* Marjorie Mccullough, - 01/13/2019 8:00 AM EDT [place]: LBP provoked by standing. The patient's family/friend () was present and supplemented the history. IMPRESSION: Facetogenic low back pain Moderate to severe L5-S1 facet degenerative changes. Moderate L4-5 facet degenerative change. Moderate disc thinning at L5-S1 RECOMMENDATIONS & PLAN: Medication management: I reviewed their medications and discussed options with her. -Acetaminophen: When necessary. That does help some. -NSAIDs: Meloxicam prescribed previously. She says this does help but considering the potential side effects she would prefer not to have a refill -Muscle relaxants: baclofen prescribed previously but she did not notice any benefit. She is not taking this currently because gabapentin helps her enough. -Prednisone: no -Anticonvulsants: She is doing well on gabapentin 100 m, 0, 1. It helps her sleep and she is not noticing any adverse effects. I refilled this today. -Antidepressants: no -Opioids: OARRS reviewed. She was given tramadol by the ER but this causes nausea and she would like to stay away from opioids. Medication management: I prescribed Valium for the MRI Lumbar MRI without IV contrast. Evaluate for disc extrusion and facet joint OA. She does have numbness in her right lateral thigh and numbness from her knees down. She has had low back pain for a long time and has done more than 6 weeks of conservative therapy including physical therapy, 24 visits actually, that ended December 09, 2018. This helped but not enough. We are considering fluoroscopically guided injections. She can use heat, cold, or massage as needed and as tolerated. She should use good posture and bodymechanics and continue with her home exercises as tolerated. Follow up in about 3 or 4 weeks, after the MRI to go over the results and to consider injection procedures for the facets especially. PATIENT IDENTIFICATION: 68 y.o. female with a history of CHF, diabetes, diabetic neuropathy, obesity, right total knee arthroplasty, lower extremity cellulitis, who was referred by Dr. Gonzalez in [facility] for low back and left lower extremity discomfort that started and early to mid August 2018 with no particular inciting event. Chief Complaint Patient presents with Back Pain PHYSICAL EXAM: Height 1.676 m (5' 6 ), weight (!) 144.2 kg (318 lb). EOMI General: no acute distress Neuro: Lower extremity strength: WFL - able to heel/toe walk Lower extremity sensation: diminished R lat thigh and bilaterally distally to the knees (hx of neuropathy) ROS: Negative for fever/chills Positive for numbness/tingling in extremities [place]: Pain location: Low back Pain ratin/10 Pain aggravated by: walking, house work Numbness or tingling in arm or leg? yes IMAGING/LABS/STUDIES: reviewed XR Lumbar spine 09/16/18: Upon my review of the images, I noted Moderate disc thinning at L5-S1. Moderate to severe L5-S1 facet joint degenerative change. Moderate L4-5 facet joint degenerative change. REPORT:1. No acute fracture, malalignment, or instability. 2. Moderate multilevel spondylosis with 3 mm degenerative anterolisthesis of L4 on L5. XR Hip left 09/16/28: Upon my review of the images I noted mild-moderate thinning of the joint spacein the bilateral hip joints. REPORT:1. No acute osseous abnormality. 2. Mild left hip osteoarthrosis. 3. Mild enthesopathic change of the greater trochanter. XR Lumbar spine 3/2/17 REPORT:1. Unchanged appearance of mild degenerative change and minimal chronic vertebral body height loss in the lower thoracic and lumbar spine as above. 2. Calcified atheromatous plaque. LABS: Outside blood work from [facility] 12/30/17: AST 17, ALT 24, creatinine 0.86, platelets 249 Lab Results Component Value Date ALT 17 09/22/2018 AST 22 09/22/2018 CREATSERUM 0.7 09/22/2018 PLATELET 241 09/22/2018 She has a past medical history of Congestive heart failure, Essential hypertension, benign, Hyperlipidemia, and Hyperthyroidism. Problem list: does not have a problem list on file. She has a past surgical history that includes cholecystectomy; tubal ligation; foot surgery (Right); knee surgery (Right); and endoscopy carpal tunnel release (Bilateral). Family History Problem Relation Age of Onset Diabetes Sister Other - Specify Sister COPD Social History Tobacco Use Smoking status: Former Smoker Smokeless tobacco: Never Used Substance Use Topics Alcohol use: Not Currently Drug use: Never She has a current medication list which includes the following prescription(s): carvedilol, docusate calcium, furosemide, levothyroxine, ondansetron, oxybutynin, pravastatin, and tramadol. She is allergic to asa [aspirin]; codeine; fluoxetine; miconazole; neurontin [gabapentin]; and penicillins. The above report was entered using [employer] voice recognition medical dictation software. Although I have reviewed this report for accuracy, certain words and phrases may not be entered as intended. documented in this encounter* Zeferino Rodarte MD - 10/03/2020 9:43 AM EDT Liz Bro 70 y.o. 1950 female Reason for Consult: Screening colonoscopy HPI: 70-year-old female with history of hypertension diabetes mellitus type 2 GERD hypothyroidism CHF morbid obesity was referred to me for screening colonoscopy her last colonoscopy was 10 years ago. Shedenies any bright red blood per rectum or melena or abdominal pain or change in bowel habit or weight loss. No family history of any colon cancer. Past Medical History: Past Medical History: Diagnosis Date Arthritis Asthma CHF (congestive heart failure) ([facility]) COPD (chronic obstructive pulmonary disease) ([facility]) Disease of thyroid gland GERD (gastroesophageal reflux disease) HTN (hypertension), benign 02/16/2020 Type 2 diabetes mellitus without complication, without long-term current use of insulin ([facility]) 02/16/2020 Surgical History & Procedures: Past Surgical History: Procedure Laterality Date APPENDECTOMY and gallbladder at same time BREAST EXCISIONAL BIOPSY Right cyst BREAST SURGERY CARPAL TUNNEL RELEASE Bilateral 2019 COLONOSCOPY 2011 EYE SURGERY JOINT REPLACEMENT UPPER GASTROINTESTINAL ENDOSCOPY 2010 Social History: Social History Socioeconomic History Marital status: Spouse name: Not on file Number of children: Not on file Years of education: Not on file Highest education level: Not on file Occupational History Not on file Social Needs Financial resource strain: Not on file Food insecurity Worry: Not on file Inability: Not on file Transportation needs Medical: Not on file Non-medical: Not on file Tobacco Use Smoking status: Former Smoker Quit date: 08/03/2002 Years since quittin.1 Smokeless tobacco: Former User Substance and Sexual Activity Alcohol use: Not Currently Drug use: Never Sexual activity: Yes control/protection: Surgical Lifestyle Physical activity Days per week: Not on file Minutes per session: Not on file Stress: Not on file Relationships Social connections Talks on phone: Not on file Gets together: Not on file Attends judaism service: Not on file Active member of club or organization: Not on file Attends meetings of clubs or organizations: Not on file Relationship status: Not on file Other Topics Concern Not on file Social History Narrative Not on file Current Medications: Current Outpatient Medications Medication Sig Dispense Refill albuterol 90 mcg/actuation inhaler INHALE 2 PUFFS 4 TIMES A DAY NEEDED 25.5 Inhaler 2 atorvastatin (LIPITOR) 40 MG tablet Take 1 (one) tablet (40 mg total) by mouth daily . 30 tablet 11 calcium carbonate (OS-JUAN MANUEL) 600 mg calcium (1,500 mg) tablet Take 600 mg by mouth 2 (two) times a day with meals . carvediloL (COREG) 25 MG tablet Take 1 (one) tablet (25 mg total) by mouth 2 (two) times a day . 180 tablet 1 docusate sodium (COLACE) 100 MG capsule Take 1 (one) capsule (100 mg total) by mouth every 12 (twelve) hours as needed . 180 capsule 1 DULoxetine (CYMBALTA) 60 MG capsule Take 1 (one) capsule (60 mg total) by mouth daily . 90 capsule 1 fenofibrate (TRICOR) 48 MG tablet Take 1 (one) tablet (48 mg total) by mouth daily Give with food .30 tablet 11 furosemide (LASIX) 40 MG tablet Take 1 (one) tablet (40 mg total) by mouth See Admin Instructions 40 mg AM and 20 mg PM per patient . 180 tablet 1 gentamicin (GARAMYCIN) 0.1 % cream APPLY TO LEFT LEG ULCER SITE ONCE A DAY levothyroxine (SYNTHROID, LEVOTHROID) 100 MCG tablet Take 1 (one) tablet (100 mcg total) by mouth daily . 90 tablet 1 multivit-min/iron/folic/lutein ([employer]) Take by mouth . oxybutynin (DITROPAN) 5 MG tablet Take 1 (one) tablet (5 mg total) by mouth 2 (two) times a day . 180 tablet 1 potassium chloride 10 MEQ CR tablet Take 2 (two) tablets (20 mEq total) by mouth 2 (two) times a day . 360 tablet 1 spironolactone (ALDACTONE) 25 MG tablet Take 1 (one) tablet (25 mg total) by mouth daily . 90 tablet 1 bisacodyL (DULCOLAX) 5 mg EC tablet As instructed . 4 tablet 0 polyethylene glycol (GoLYTELY) 236-22.74-6.74 -5.86 gram solution Take 4,000 mL by mouth once for 1dose . 4000 mL 0 No current facility-administered medications for this visit. Review of Systems Constitutional: Negative for appetite change and unexpected weight change. HENT: Negative for voice change. Respiratory: Negative for cough, choking and shortness of breath. Cardiovascular: Negative for chest pain and leg swelling. Gastrointestinal: Positive for constipation. Negative for abdominal pain, anal bleeding, blood in stool, diarrhea, nausea, rectal pain and vomiting. Genitourinary: Negative for hematuria. Musculoskeletal: Negative for arthralgias and joint swelling. Skin: Negative for pallor. Neurological: Negative for dizziness, tremors and weakness. Hematological: Negative for adenopathy. Does not bruise/bleed easily. Psychiatric/Behavioral: Negative for confusion. Physical Exam Constitutional: Appearance: Normal appearance. Eyes: Pupils: Pupils are equal, round, and reactive to light. Cardiovascular: Pulses: Normal pulses. Heart sounds: Normal heart sounds. Pulmonary: Breath sounds: Normal breath sounds. Abdominal: General: Bowel sounds are normal. Palpations: Abdomen is soft. There is no mass. Tenderness: There is no abdominal tenderness. Skin: Coloration: Skin is not jaundiced. Neurological: General: No focal deficit present. Mental Status: She is alert and oriented to person, place, and time. Psychiatric: Behavior: Behavior normal. Lab Draw on 09/12/2020 Component Date Value Ref Range Status Hemoglobin A1C 09/12/2020 5.9* 4.0 - 5.6 % Final Estimated Average Glucose 09/12/2020 123* 68 - 114 mg/dL Final Sodium 09/12/2020 141 135 - 145 mmol/L Final Potassium 09/12/2020 4.6 3.5 - 5.1 mmol/L Final Chloride 09/12/2020 108 98 - 108 mmol/L Final Bicarbonate 09/12/2020 26 21 - 32 mmol/L Final Anion Gap 09/12/2020 12 10 - 20 mmol/L Final Glucose 09/12/2020 132* 65 - 99 mg/dL Final BUN 09/12/2020 21 8 - 25 mg/dL Final Creatinine 09/12/2020 0.90 0.60 - 1.20 mg/dL Final eGFR 09/12/2020 65 >=60 mL/min/1.73 m2 Final BUN/Creatinine Ratio 09/12/2020 23.3* 10.0 - 20.0 Final Total Protein 09/12/2020 7.1 6.0 - 8.0 g/dL Final Albumin 09/12/2020 3.5 3.2 - 5.2 g/dL Final Calcium 09/12/2020 9.0 8.4 - 10.2 mg/dL Final Alkaline Phosphatase 09/12/2020 83 40 - 150 U/L Final AST 09/12/2020 12 0 - 45 U/L Final Total Bilirubin 09/12/2020 0.3 0.0 - 1.3 mg/dL Final ALT 09/12/2020 21 14 - 65 U/L Final Magnesium 09/12/2020 1.9 1.6 - 2.4 mg/dL Final Cholesterol 09/12/2020 221* 100 - 199 mg/dL Final National Cholesterol Education Program Guidelines: Cholesterol Desirable: <200 mg/dL Borderline High: 200-239 mg/dL High: greater than or equal to 240 mg/dL Triglycerides 09/12/2020 606* 30 - 150 mg/dL Final National Cholesterol Education Program Guidelines: Triglyceride Normal: <150 mg/dL Borderline High: 150-199 mg/dL High: 200-499 mg/dL Very High: greater than or equal to 500 mg/dL HDL 09/12/2020 33* 40 - 59 mg/dL Final National Cholesterol Education Program Guidelines: HDL Cholesterol Low: <40 mg/dL Near Optimal: 40-59 mg/dL High: greater than or equal to 60 mg/dL Chol/HDL Ratio 09/12/2020 6.7 ratio Final Female Cholesterol/HDL Ratio: Average risk: 4.4 1/2 average risk: 3.3 2 x average risk: 7.1 LDL Calculated 09/12/2020 Final Calculated LDL invalid, triglycerides >400 mg/dl Non HDL Cholesterol 09/12/2020 188 mg/dL Final National Cholesterol Education Program Guidelines: NON HDL Cholesterol Desirable: <130 mg/dL Borderline High: 130-159 mg/dL High: 160-189 mg/dL Very High: > or = 190 mg/dL Hepatitis C Ab 09/12/2020 Negative Negative Final WBC 09/12/2020 6.62 4.50 - 11.00 K/mcL Final RBC 09/12/2020 5.02 4.00 - 5.20 M/mcL Final Hemoglobin 09/12/2020 14.2 12.0 - 16.0 g/dL Final Hematocrit 09/12/2020 45.1 36.0 - 46.0 % Final MCV 09/12/2020 89.8 80.0 - 100.0 fL Final MCH 09/12/2020 28.3 26.0 - 34.0 pg Final MCHC 09/12/2020 31.5 31.0 - 37.0 g/dL Final Platelets 09/12/2020 239 150 - 400 K/mcL Final RDW - CV 09/12/2020 13.5 11.6 - 14.8 % Final MPV 09/12/2020 9.6 9.4 - 12.4 fL Final Neutrophils 09/12/2020 56.4 % Final Lymphocytes 09/12/2020 29.8 % Final Monocytes 09/12/2020 7.1 % Final Eosinophils 09/12/2020 4.4 % Final Basophils 09/12/2020 1.2 % Final IG Percent 09/12/2020 1.10 % Final The IG parameter is the percentage of metamyelocytes, myelocytes and promyelocytes. An immature granulocyte count (IG) of 1% or more suggests the possibility of infection, an IG count of 3% is very likely related to an infection. Neutrophils Abs 09/12/2020 3.74 1.70 - 7.00 K/mcL Final Lymphocytes Abs 09/12/2020 1.97 0.90 - 4.00 K/mcL Final Monocytes Abs 09/12/2020 0.47 0.30 - 0.90 K/mcL Final Eosinophils Abs 09/12/2020 0.29 0.00 - 0.50 K/mcL Final Basophils Abs 09/12/2020 0.08 0.00 - 0.30 K/mcL Final IG Absolute 09/12/2020 0.07 0.00 - 0.30 K/mcL Final Nucleated RBC 09/12/2020 0.0 % Final Nucleated RBC Abs 09/12/2020 0.00 0.00 - 0.00 K/mcL Final LDL Measured 09/12/2020 114 10 - 130 mg/dL Final National Cholesterol Education Program Guidelines: LDL Cholesterol Optimal: <100 mg/dL Near Optimal/above Optimal: 100-129 mg/dL Borderline High: 130-159 mg/dL High: 160-189 mg/dL Very High: greater than or equal to 190 mg/dL Office Visit on 09/09/2020 Component Date Value Ref Range Status Microalb, Ur 09/12/2020 0.5 0.0 - 1.8 mg/dL Final Microalbumin/Creat Ratio 09/12/2020 12 0 - 25 mg/g crea Final Creatinine, Ur, Random 09/12/2020 42.9 mg/dL Final Assessment & Plan: Screening colonoscopy patient is scheduled for colonoscopy on October 30 at noon at [facility]. Zeferino Rodarte MD documented in this encounter Assessments Diagnosis Lumbosacral radiculopathy- Primary Thoracic or lumbosacral neuritis or radiculitis, unspecified Sacroiliac joint pain Disorders of sacrum Pain of left hip joint Trochanteric bursitis of left hip Enthesopathy of hip region Diagnosis Lumbosacral radiculopathy- Primary Thoracic or lumbosacral neuritis or radiculitis, unspecified Sacroiliac joint pain Disorders of sacrum Pain of left hip joint Trochanteric bursitis of left hip Enthesopathy of hip region Diagnosis Lumbosacral radiculopathy- Primary Thoracic or lumbosacral neuritis or radiculitis, unspecified Sacroiliac joint pain Disorders of sacrum Pain of left hip joint Trochanteric bursitis of left hip Enthesopathy of hip region Diagnosis Lumbosacral radiculopathy- Primary Thoracic or lumbosacral neuritis or radiculitis, unspecified Sacroiliac joint pain Disorders of sacrum Pain of left hip joint Trochanteric bursitis of left hip Enthesopathy of hip region Diagnosis Sacroiliac joint pain- Primary Disorders of sacrum Lumbosacral radiculopathy Thoracic or lumbosacral neuritis or radiculitis, unspecified DDD (degenerative disc disease), lumbosacral Degeneration of lumbar or lumbosacral intervertebral disc Osteoarthritis of facet joint of lumbar spine Diagnosis Lumbosacral radiculopathy- Primary Thoracic or lumbosacral neuritis or radiculitis, unspecified Sacroiliac joint pain Disorders of sacrum Pain of left hip joint Trochanteric bursitis of left hip Enthesopathy of hip region Diagnosis Lumbosacral radiculopathy- Primary Thoracic or lumbosacral neuritis or radiculitis, unspecified Sacroiliac joint pain Disorders of sacrum Pain of left hip joint Trochanteric bursitis of left hip Enthesopathy of hip region Diagnosis Lumbosacral radiculopathy- Primary Thoracic or lumbosacral neuritis or radiculitis, unspecified Sacroiliac joint pain Disorders of sacrum Low back pain, unspecified back pain laterality, unspecified chronicity, with sciatica presence unspecified Trochanteric bursitis of left hip Enthesopathy of hip region Diagnosis Lumbosacral radiculopathy- Primary Thoracic or lumbosacral neuritis or radiculitis, unspecified Diagnosis Lumbosacral radiculopathy- Primary Thoracic or lumbosacral neuritis or radiculitis, unspecified Sacroiliac joint pain Disorders of sacrum Trochanteric bursitis of left hip Enthesopathy of hip region Pain of left hip joint Diagnosis Lumbosacral radiculopathy- Primary Thoracic or lumbosacral neuritis or radiculitis, unspecified Sacroiliac joint pain Disorders of sacrum Trochanteric bursitis of left hip Enthesopathy of hip region Pain of left hip joint Diagnosis Lumbosacral radiculopathy- Primary Thoracic or lumbosacral neuritis or radiculitis, unspecified Sacroiliac joint pain Disorders of sacrum Diagnosis Lumbosacral radiculopathy- Primary Thoracic or lumbosacral neuritis or radiculitis, unspecified Diagnosis Lumbosacral radiculopathy- Primary Thoracic or lumbosacral neuritis or radiculitis, unspecified Diagnosis Lumbosacral radiculopathy- Primary Thoracic or lumbosacral neuritis or radiculitis, unspecified Diagnosis Lumbar facet joint pain- Primary Other symptoms referable to back Discogenic low back pain Lumbago DDD (degenerative disc disease), lumbosacral Degeneration of lumbar or lumbosacral intervertebral disc Osteoarthritis of facet joint of lumbar spine Class 3 severe obesity with body mass index (BMI) of 50.0 to 59.9 in adult, unspecified obesity type, unspecified whether serious comorbidity present Diagnosis Lumbosacral radiculopathy- Primary Thoracic or lumbosacral neuritis or radiculitis, unspecified Sacroiliac joint pain Disorders of sacrum Diagnosis Lumbosacral radiculopathy- Primary Thoracic or lumbosacral neuritis or radiculitis, unspecified Sacroiliac joint pain Disorders of sacrum Trochanteric bursitis of left hip Enthesopathy of hip region Pain of left hip joint Diagnosis Lumbosacral radiculopathy- Primary Thoracic or lumbosacral neuritis or radiculitis, unspecified Sacroiliac joint pain Disorders of sacrum Trochanteric bursitis of left hip Enthesopathy of hip region Pain of left hip joint Diagnosis Cellulitis of right lower extremity Cellulitis and abscess of left lower extremity Candidiasis of skin Candidiasis of skin and nails Cellulitis of lower extremity Cellulitis Cellulitis and abscess of unspecified site Hypokalemia Hypopotassemia Chronic right shoulder pain Pain in joint, shoulder region Acute pain of right knee Pleural thickening Pleurisy without mention of effusion or current tuberculosis Diagnosis Venous insufficiency (chronic) (peripheral) Unspecified venous (peripheral) insufficiency Venous stasis dermatitis of both lower extremities Cellulitis of lower extremity, unspecified laterality Diagnosis Venous insufficiency (chronic) (peripheral) Unspecified venous (peripheral) insufficiency Venous stasis dermatitis of both lower extremities Cellulitis of lower extremity, unspecified laterality Candidiasis, skin or nails Diagnosis Acute pain of left knee Primary osteoarthritis of left knee Chronic cellulitis Cellulitis and abscess of unspecified site Diagnosis Well adult health check- Primary Unspecified general medical examination Chronic obstructive pulmonary disease, unspecified COPD type ([facility]) HTN (hypertension), benign Essential hypertension, benign Hypercholesteremia Pure hypercholesterolemia Type 2 diabetes mellitus without complication, without long-term current use of insulin ([facility]) Morbid obesity ([facility]) Morbid obesity Encounter for screening colonoscopy Diagnosis Well adult health check Unspecified general medical examination Diagnosis HTN (hypertension), benign- Primary Essential hypertension, benign Hypercholesteremia Pure hypercholesterolemia Chronic diastolic congestive heart failure ([facility]) Age-related osteoporosis without current pathological fracture Type 2 diabetes mellitus with diabetic polyneuropathy, without long-term current use of insulin ([facility]) [facility] adult health check Unspecified general medical examination Encounter for screening colonoscopy Flu vaccine need Class 3 severe obesity due to excess calories with serious comorbidity and body mass index (BMI) of 50.0 to 59.9 in adult ([facility]) Diagnosis Lumbar facet joint pain- Primary Other symptoms referable to back Osteoarthritis of facet joint of lumbar spine Central spinal stenosis Spinal stenosis, unspecified region other than cervical Diagnosis Essential (primary) hypertension Unspecified essential hypertension Chronic idiopathic constipation Unspecified constipation Type 2 diabetes mellitus with diabetic polyneuropathy, without long-term current use of insulin ([facility]) HTN (hypertension), benign Essential hypertension, benign Chronic obstructive pulmonary disease, unspecified COPD type ([facility]) Chronic diastolic congestive heart failure ([facility]) Class 3 severe obesity due to excess calories with serious comorbidity and body mass index (BMI) of 50.0 to 59.9 in adult ([facility]) [facility] adult health check Unspecified general medical examination Encounter for screening colonoscopy Hypercholesteremia Pure hypercholesterolemia Hypothyroidism, unspecified type Urge incontinence of urine Urge incontinence At high risk for falls Diagnosis Hypertriglyceridemia- Primary Pure hyperglyceridemia Hypercholesteremia Pure hypercholesterolemia Diagnosis Lumbar facet joint pain- Primary Other symptoms referable to back Osteoarthritis of facet joint of lumbar spine DDD (degenerative disc disease), lumbosacral Degeneration of lumbar or lumbosacral intervertebral disc Chronic low back pain, unspecified back pain laterality, with sciatica presence unspecified Diagnosis Lumbar facet joint pain Other symptoms referable to back Osteoarthritis of facet joint of lumbar spine DDD (degenerative disc disease), lumbosacral Degeneration of lumbar or lumbosacral intervertebral disc Chronic low back pain, unspecified back pain laterality, with sciatica presence unspecified Diagnosis Encounter for screening colonoscopy for [id number] patient- Primary Encounter for screening colonoscopy for cql-[id number] patient Diagnosis Encounter for screening colonoscopy Encounter for screening colonoscopy for [id number] patient- Primary Encounter for screening colonoscopy for [id number] patient Diagnosis Encounter for screening colonoscopy for [id number] patient- Primary Sars-associated coronavirus as the cause of diseases classified elsewhere- Primary Encounter for screening colonoscopy for sym-[id number] patient Discharge Instructions * Instructions* Marti Robison RN - 06/09/2019 Cellulitis: Care Instructions Your Care Instructions Cellulitis is a skin infection caused by bacteria, most often strep or staph. It often occurs aftera break in the skin from a scrape, cut, bite, or puncture, or after a rash. Cellulitis may be treated without doing tests to find out what caused it. But your doctor may do tests, if needed, to look for a specific bacteria, like methicillin-resistant Staphylococcus aureus (MRSA). The doctor has checked you carefully, but problems can develop later. If you notice any problems ornew symptoms, get medical treatment right away. Follow-up care is a bosch part of your treatment and safety. Be sure to make and go to all appointments, and call your doctor if you are having problems. It's also a good idea to know your test resultsand keep a list of the medicines you take. How can you care for yourself at home? Take your antibiotics as directed. Do not stop taking them just because you feel better. You need to take the full course of antibiotics. Prop up the infected area on pillows to reduce pain and swelling. Try to keep the area above the level of your heart as often as you can. If your doctor told you how to care for your wound, follow your doctor's instructions. If you did not get instructions, follow this general advice: ? Wash the wound with clean water 2 times a day. Don't use hydrogen peroxide or alcohol, which can slow healing. ? You may cover the wound with a thin layer of petroleum jelly, such as Vaseline, and a nonstick bandage. ? Apply more petroleum jelly and replace the bandage as needed. Be safe with medicines. Take pain medicines exactly as directed. ? If the doctor gave you a prescription medicine for pain, take it as prescribed. ? If you are not taking a prescription pain medicine, ask your doctor if you can take an zqnv-rmc-ebvrchn medicine. To prevent cellulitis in the future Try to prevent cuts, scrapes, or other injuries to your skin. Cellulitis most often occurs where there is a break in the skin. If you get a scrape, cut, mild burn, or bite, wash the wound with clean water as soon as you can tohelp avoid infection. Don't use hydrogen peroxide or alcohol, which can slow healing. If you have swelling in your legs (edema), support stockings and good skin care may help prevent leg sores and cellulitis. Take care of your feet, especially if you have diabetes or other conditions that increase the risk of infection. Wear shoes and socks. Do not go barefoot. If you have athlete's foot or other skin problems on your feet, talk to your doctor about how to treat them. When should you call for help? Call your doctor now or seek immediate medical care if: You have signs that your infection is getting worse, such as: ? Increased pain, swelling, warmth, or redness. ? Red streaks leading from the area. ? Pus draining from the area. ? A fever. You get a rash. Watch closely for changes in your health, and be sure to contact your doctor if: You do not get better as expected. Where can you learn more? Log into your personal health record on https://[employer] and enter X309 in the Education box to learn more about Cellulitis: Care Instructions. Current as of: September 19, 2018 Content Version: 12.3 6190-0434 [employer]. Care instructions adapted under license by your healthcare professional. If you have questions about a medical condition or this instruction, always ask your healthcare professional. [employer] disclaims any warranty or liability for your use of this information. documented in this encounter* Instructions* Durga Almeida DO - 01/28/2020 May take Tylenol every 6 hours as needed for pain. Take antibiotics as directed for cellulitis. Keep feet elevated as much as possible. Follow-up with your family doctor in 2 to 3 days for recheck. Return if worse. * Attachments The following attachments cannot be sent through Care Everywhere. * Arthritis ([place]) * Knee Pain or Injury ([place]) * Cellulitis ([place]) documented in this encounter Instructions * Patient Instructions* Leidy Dewitt, MAURY - 06/30/2019 7:32 AM EST Triad cream as needed Tubigrip I during the daytime Discharge from wound clinic follow-up with PMD no p.o. antibiotic documented in this encounter* Patient Instructions* Jing Gutierrez, MAURY - 06/23/2019 8:55 AM EST Bilateral Unna compression not too tight Inter-dry fabric between the toes Revisit 1 week We will remove the Unna on Wednesday then put Lotrisone once a day she has it at home documented in this encounter* Patient Instructions* Paul Hurley MD - 09/09/2020 11:10 AM EDT [place] High Risk Patient Instructions Your Falls Screening today shows that you are at high risk for falls. To prevent future falls we recommend: 1. Read through the brochure, What You Can Do to Prevent Falls (from CDC). 2. Go through the brochure, Check for Safety: A Home Fall Prevention Checklist for Older Adults (from CDC). We recommend having a Home Safety Evaluation to see what areas might increase your risk of falling. 3. We have referred you to physical therapy. You can either go to outpatient physical therapy or have a therapist come to your home. 4. You may benefit from using an assistive device to help you walk (such as a cane or walker). Yourphysical therapist will help determine the right device and fit. 5. Once you have completed your physical therapy, please join a community falls prevention program: Stepping On, a 7-week evidence based program that teaches balance exercises and fall prevention strategies Mode Chi for older adults, group exercise that teaches Mode Chi forms that reduce fall risk (weight shifting, postural alignment and control, and coordinated movements of the arms, legs, head, and trunk) Matter of Balance, an evidence based program designed to reduce the fear of falling and increase activity levels of older adults OR an exercise class for strength and balance. 6. Take your Vitamin D with or without Calcium, as determined by your healthcare provider. 7. We have reviewed your medications to determine if they may contribute to your risk for falls andmade recommendations for changes. 8. Get your vision and hearing checked annually. 9. Wear shoes that fit well and don t slip. If you have medical conditions that affect your feet (like their shape or how well you can feel), discuss this with your provider so they can refer you to a air export coordinator. Falls At Home Each year, thousands of older Americans fall at home. Many of them are seriously injured, and some are disabled. In 2011, nearly 23,000 people over age 65 and 2.4 million were treated in emergency departments because of falls. Falls are often due to hazards that are easy to overlook but easy to fix. This checklist will help you find and fix those hazards in your home. The checklist asks about hazards found in each room of your home. For each hazard, the checklist tells you how to fix the problem. At the end of the checklist, you ll find other tips for preventing falls. FLOORS: Look at the floor in each room. Q: When you walk through a room, do you have to walk around furniture? A. Ask someone to move the furniture so your path is clear Q: Do you have throw rugs on the floor? A. Remove the rugs or use double-sided tape or a non-slip backing so the rugs won t slip. Q: Are there papers, books, towels, shoes, magazines, boxes, blankets, or other objects on the floor? A.ranch supervisor things that are on the floor. Always keep objects off the floor. Q: Do you have to walk over or around wires or cords (like lamp, telephone, or extension cords)? A. Coil or tape cords and wires next to the wall so you can t trip over them. If needed, have an electrician's assistant put in another outlet. STAIRS AND STEPS: Look at the stairs you use both inside and outside your home. Q: Are there papers, shoes, books, or other objects on the stairs? A. ranch supervisor things on the stairs. Always keep objects off stairs. Q: Are some steps broken or uneven? A. Fix loose or uneven steps. Q: Are you missing a light over the stairway? A. Have an electrician's assistant put in an overhead light at the top and bottom of the stairs. Q: Do you have only one light switch for your stairs (only at the top or at the bottom of the stairs)? A. Have an electrician's assistant put in a light switch at the top and bottom of the stairs. You can get lightswitches that glow. Q: Has the stairway light bulb burned out? A. Have a friend or family member change the light bulb. Q: Is the carpet on the steps loose or torn? A. Make sure the carpet is firmly attached to every step, or remove the carpet and attach non-slip rubber treads to the stairs. Q: Are the handrails loose or broken? Is there a handrail on only one side of the stairs? A. Fix loose handrails or put in new ones. Make sure handrails are on both sides of the stairs and are as long as the stairs. KITCHEN: Look at your kitchen and eating area. Q: Are the things you use often on high shelves? A. Move items in your cabinets. Keep things you use often on the lower shelves (about waist level). Q: Is your step stool unsteady? A. If you must use a step stool, get one with a bar to hold on to. Never use a chair as a step stool. BATHROOMS: Look at all your bathrooms. Q: Is the tub or shower floor slippery? A. Put a non-slip rubber mat or self-stick strips on the floor of the tub or shower. Q: Do you need some support when you get in and out of the tub or up from the toilet? A. Have grab bars put in next to and inside the tub and next to the toilet. BEDROOMS: Look at all your bedrooms. Q: Is the light near the bed hard to reach? A. Place a lamp close to the bed where it s easy to reach. Q: Is the path from your bed to the bathroom dark? A. Put in a night-light so you can see where you re walking. Some night-lights go on by themselves after dark. Other Things You Can Do to Prevent Falls Do exercises that improve your balance and make your legs stronger. Exercise also helps you feel better and more confident. Have your doctor or pharmacist look at all the medicines you take, even irvl-dmp-lsvzood medicines.Some medicines can make you sleepy or dizzy. Have your eyes checked by an eye doctor at least once a year and update your glasses. Get up slowly after you sit or lie down. Wear shoes both inside and outside the house. Avoid going barefoot or wearing slippers. Improve the lighting in your home. Put in brighter light bulbs. Florescent bulbs are bright and cost less to use. It s safest to have uniform lighting in a room. Add lighting to dark areas. Hang lightweight curtains or shades to reduce glare. [employer] a contrasting color on the top edge of all steps so you can see the stairs better. For example, use a light color paint on dark wood. To access this brochure online, please visit the CDC website at http://www.cdc.gov/steadi/pdf/check_for_safety_brochure-a.pdf Chair Rise Exercise What it does: Strengthens the muscles in your thighs & buttocks. Goal: To do this exercise without using your hands as you become stronger. How to do it: 1. Sit toward the front of a sturdy chair with your knees bent & feet flat on the floor shoulder-width apart 2. Rest your hands lightly on the seat on either side of you, keeping your back & neck straight& and chest slightly forward. 3. Breathe in slowly. Lean forward & feel your weight on the front of your feet. 4. Breathe out and slowly stand up, using your hands as little as possible. 5. Pause for a full breath in & out. 6. Breathe in as you slowly sit down. Do not let yourself collapse back down into the chair. Rather, control your lowering as much as possible. 7. Breathe out. Repeat 10-15 times. If this number is too hard for you when you first start practicing this exercise, begin with fewer and work up to this number. Rest for a minute & then do a final set of 10-15. For detailed instructions, please visit the CDC website at http://www.cdc.gov/steadi/pdf/chair_rise_exercise-a.pdf Stepping On is an evidence based program proven to reduce falls in older adults. It is a workshop offered once a week for seven weeks. In a small-group setting, you will learn balance exercises and develop specific knowledge and skills to prevent falls. Older adults who should attend are those who: are at risk of falling who have fallen one or more times lives at home are able to walk without the help of another person Local guest experts provide information on exercise, safety, vision, and medications. Classes are offered at [facility]. To find out specifics about a class, please call [phone]. Mode chi: Moving for Better Balance involves low impact exercise. The 12-week class is offered for three hours per week and is led by a trained forest botany instructor. It is intended for people aged 60 and older. Participants learn and perform a program of eight forms that progress from easy to more difficult. The program can accommodate persons with various physical conditions. Health Benefits of Omde Chi: Moving for Better Balance: Improved social and mental well-being, Improved balance and physical functioning, Improved confidence in conducting daily activities, Reduced risk of falling and sustaining associated injuries, and Maintained independence and improved quality of life. To find a Mode Chi program in your area or additional resources about fall prevention please contact: [facility] Violence and Injury Prevention Program at [phone] or [email or web address] A Matter of Balance: Managing Concerns about Falls is an evidence based program designed to reduce the fear of falling and increase activity levels of older adults. A trained bobbin marker leads 8 two-hour sessions for small groups of older adults. The class is intended for people 60 and older who are at risk of falling have a fear of falling or restrict activities who have fallen in the past are interested in improving flexibility, balance, and strength. Participants will learn to view falls as controllable, set goals to increase activity levels, and reduce fall risks at home. Classes are offered in all [address] [place] [address] in [place]. For more information about specific classes near you, please visit http://aging.[place].gov/steadyu/resources/matterofbalance.aspx. documented in this encounter Additional Source Comments INFORMATION SOURCE (unrecogn ized section and content) DATE CREATED AUTHOR AUTHOR'S ORGANIZ ATION 11/07/2018 [facility] DATE CREATED AUTHOR AUTHOR'S ORGANIZ ATION 01/13/2019 [facility] DATE CREATED AUTHOR AUTHOR'S ORGANIZ ATION 02/17/2019 [facility] DATE CREATED AUTHOR AUTHOR'S ORGANIZ ATION 10/28/2020 [facility] DATE CREATED AUTHOR AUTHOR'S ORGANIZ ATION 01/11/2021 [facility] DATE CREATED AUTHOR AUTHOR'S ORGANIZ ATION 01/26/2021 [facility] DATE CREATED AUTHOR AUTHOR'S ORGANIZ ATION 01/26/2021 [facility] Reason for Visit (unrecogniz ed section and content) Status Reason Specialty Diagnoses / Procedures Referred By Contact Referred To Contact Auth Not Needed Physical Therapy Diagnoses Lumbosacral radiculopathy Sacroiliac joint pain Pain of left hip joint Trochanteric bursitis of left hip Marjorie Mccullough, DO [address] [place] [address] Reason Comments Back Pain Reason Comments PT Treatment Back Pain Status Reason Specialty Diagnoses / Procedures Referred By Contact Referred To Contact Auth Not Needed Physical Therapy Diagnoses Lumbosacral radiculopathy Sacroiliac joint pain Pain of left hip joint Trochanteric bursitis of left hip Marjorie Mccullough, DO [address] [facility], [place] [address] [facility] [address] [place] [address] Reason Comments Back Pain Hip Pain Reason Comments Back Pain Status Reason Specialty Diagnoses / Procedures Referred By Contact Referred To Contact New Request Diagnoses Sciatica of left side Ant Gonzalez MD [address] [place] [address] Marjorie Mccullouhg, DO [address] [place] [address] Reason Comments PT Eval Back Pain Hip Pain Status Reason Specialty Diagnoses / Procedures Referred By Contact Referred To Contact Auth Not Needed Physical Therapy Diagnoses Lumbosacral radiculopathy Sacroiliac joint pain Pain of left hip joint Trochanteric bursitis of left hip Marjorie Mccullough, DO [address] [facility], [place] [address] [facility] [address] [place] [address] Reason Comments PT Treatment Back Pain Hip Pain Status Reason Specialty Diagnoses / Procedures Referred By Contact Referred To Contact Auth Not Needed Physical Therapy Diagnoses Lumbosacral radiculopathy Sacroiliac joint pain Pain of left hip joint Trochanteric bursitis of left hip YovannyMarjorie goss, DO [address] [facility], [place] [address] Reason Comments PT Treatment Back Pain Status Reason Specialty Diagnoses / Procedures Referred By Contact Referred To Contact Auth Not Needed Physical Therapy Diagnoses Lumbosacral radiculopathy Sacroiliac joint pain Pain of left hip joint Trochanteric bursitis of left hip Oracio Marjorie Duarte, DO [address] [place] [address] Reason Comments Back Pain PT Summary Status Reason Specialty Diagnoses / Procedures Referred By Contact Referred To Contact Closed Physical Therapy Diagnoses Lumbosacral radiculopathy Sacroiliac joint pain Pain of left hip joint Trochanteric bursitis of left hip YovannyMarjorie goss, DO [address] [place] [address] Status Reason Specialty Diagnoses / Procedures Referre d By Contact Referred To Contact Diagnoses bilateral lower extremity cellulitis Reason Comments Wound Check Reason Comments Leg Pain Reason Comments Follow-up 3 mo/ Needs RX for G ERD Status Reason Specialty Diagnoses / Procedures Referre d By Contact Referred To Contact Closed Radiology Diagnoses Well adult health check Procedures Mammography Screening Bilateral Paul Hurley MD [address] [place] [address] [place] [address] [place] [address] Reason Onset Date Comments Medication Refill 07/16/2020 Reason Comments Medication Refill Reason Comments Follow-up 3 mo Leg Pain swollen and very sor e, painful to the touch Urinary Urgency Flu Vaccine Status Reason Specialty Diagnoses / Procedures Referred By Contact Referred To Contact New Request Physical Therapy Diagnoses Sacroiliac joint pain Lumbosacral radiculopathy DDD (degenerative disc disease), 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 Marjorie Mccullough, DO [address] [facility], [facility] [address] [facility] [address] [place] [address] Reason Onset Date Comments Follow-up 3 mo/check spots on ARMS Fall Risk Screening 09/09/2020 Status Reason Specialty Diagnoses / Procedures Referred By Contact Referred To Contact Pending Review Magnetic Resonance Imaging Diagnoses Lumbar facet joint pain Osteoarthritis of facet joint of lumbar spine DDD (degenerative disc disease), lumbosacral Chronic low back pain, unspecified back pain laterality, with sciatica presence unspecified Procedures MRI SPINE LUMBAR WITHOUT CONTRAST MI MRI, LUMBAR SPINE Marjorie Mccullough, DO [address] [place] [address] [facility] [address] [place] [address] Status Reason Specialty Diagnoses / Procedures Referred By Contact Referred To Contact New Request Physical Therapy Diagnoses Lumbosacral radiculopathy Sacroiliac joint pain Low back pain, unspecified back pain laterality, unspecified chronicity, with sciatica presence unspecified Trochanteric bursitis of left hip Marjorie Mccullough, DO [address] [facility], [place] [address] [facility] [address] [place] [address] Status Reason Specialty Diagnoses / Procedures Referred By Contact Referred To Contact Closed Specialty Services Required/Patien t's Best Interest Gastroenterology Diagnoses Type 2 diabetes mellitus with diabetic polyneuropathy, without long-term current use of insulin ([facility]) Paul Hurley MD [address] [place] [address] Zeferino Rodarte MD [address] [place] [address] Reason Onset Date Comments Medication Problem 11/10/2010 Reason Comments Acute Visit may need controlled nhaler due to excessive use of rescue inhaler Reason Onset Date Comments Medication Refill 10/29/2020 Reason Onset Date Comments High Risk Care Management 01/02/2021 health [employer] basketball [employer] Abilio Sanders MD - 06/03/2019 9:38 AM EST H&P Notes (unrecognized sect ion and content) Internal Medicine Inpatient H&P 06/03/2019 Abilio Sanders MD [facility] Patient: Liz Bro Date of : 1950 (69 y.o.) PCP: Paul Hurley MD ASSESSMENT/PLAN: * Cellulitis of lower extremity Assessment & Plan Unresolved cellulitis as outpatient treatment ASSESSMENT & PLAN Liz Bro 69 y.o. female with history of patient was seen by Dr. Joseph air export coordinator's office for follow-up of bilateral lower extremity cellulitis. Patient noted to have open sores and blisters and recommended hospitalization IV Lasix IV antibiotics podiatry and ID consult. SUBJECTIVE: Chief Complaint/Reason for Visit: Mostly related to locomotor system with the ongoing cellulitis unresolved after oral antibiotics. Patient does not sleep in the bed very sits up and sleeps in the chest. He has a history of sleep apnea chronic lung disease. She has a massive weight. History of Present Illness: Liz Bro is a 69 y.o. female presenting from doctor's office with a cellulitis of the lower extremities unresolved for several months. Has a trial of oral antibiotic failed outpatient treatment. Tests: Ending Review of Systems: All other systems reviewed and negative other than HPI Past Medical History: Diagnosis Date Arthritis Asthma CHF (congestive heart failure) (HCC) COPD (chronic obstructive pulmonary disease) (HCC) Disease of thyroid gland Past Surgical History: Procedure Laterality Date APPENDECTOMY BREAST SURGERY EYE SURGERY JOINT REPLACEMENT History reviewed. No pertinent family history. Social History Tobacco Use Smoking Status Former Smoker Last attempt to quit: 08/03/2002 Years since quittin.8 Smokeless Tobacco Former User Additional History Comments: None Allergies: Antifungal - imidazole; Aspirin; Codeine; Fluoxetine hcl; and Salicylates Current HOSPITAL Medications: acetaminophen (TYLENOL) tablet 650 mg, 650 mg, Oral, 4x Daily PRN carvedilol (COREG) tablet 25 mg, 25 mg, Oral, BID ceFAZolin (ANCEF) IVPB 1 g (premix), 1,000 mg, Intravenous, Q8H docusate sodium (COLACE) capsule 100 mg, 100 mg, Oral, Daily flu vacc [id number](65yr up)PF (FLUZONE HIGH DOSE) syringe 0.5 mL, 0.5 mL, Intramuscular, Prior To Discharge furosemide (LASIX) tablet 40 mg, 40 mg, Oral, BID gabapentin (NEURONTIN) capsule 100 mg, 100 mg, Oral, Nightly naloxone (NARCAN) injection 0.1 mg, 0.1 mg, Intravenous, PRN AND Notify physician, , , Until Discontinued AND naloxone (NARCAN) injection 0.4 mg, 0.4 mg, Intravenous, PRN oxybutynin (DITROPAN) tablet 5 mg, 5 mg, Oral, BID potassium chloride (KAYCIEL) 20 mEq/15 mL solution 20 mEq, 20 mEq, Oral, BID potassium chloride 20 mEq in 100 mL IVPB, 20 mEq, Intravenous, Q1H pravastatin (PRAVACHOL) tablet 40 mg, 40 mg, Oral, Daily OBJECTIVE: Physical Examination: BP (!) 150/80 Pulse 79 Temp 97.8 F (36.6 C) (Oral) Resp 18 Ht 5' 6 Wt 114.6 kg (252 lb 10.4 oz) SpO2 94% BMI 40.78 kg/m Examination blood pressure 150/80 heart rate 79 temperature normal next examination revealed clear lungs but breath sounds diminished, cardiac examination revealed distant or soft heart sounds. Abdomen is obese and no tenderness. Extremities revealed 2-3+ edema cellulitis of the lower extremities below two third of the knee. And there is a blister secondary to serous sanguinous discharge both legs have been dressed for now. Laboratory and Additional Data Reviewed: Reviewed 06/03/19 10:11 AM: As reported documented in this encounter Andrew Elaine MD - 06/07/2019 1:22 PM Marilyn Thakur MD - 06/05/2019 10:18 AM EST Consult Notes (unrecognized section and content) Chief complaint right shoulder pain reports falling approximately 3 months ago she has had persistent shoulder pain since with increased pain with attempted abduction forward flexion past 90 degrees with x-rays obtained showing a questionable fracture on 1 view only This patient was noted for cellulitis with past medical history as noted history and physical which was reviewed On exam she does have restricted abduction forward flexion past 90 degrees Plan will obtain an MRI of her right shoulder with recommendations to follow Associated Order(s): IP CONSULT TO INFECTIOUS DISEASES CONSULT NOTE 06/05/2019 Patient Name: Liz Bro Admit Date: [id number] MR #: [id number] : 1950 Physicians: Paul Hurley MD (Family); No ref. provider found (Referring) Assessment and Plan: Impression Bilateral lower extremity cellulitis Bilateral venous insufficiency History of pulmonary edema Right prosthetic knee History of allergy to penicillin with nausea Plan Ancef 1 g IV every 8 Arterial Dopplers Venous Dopplers Discontinue all dressings put only Tubigrip I Consider Unna compression bilaterally Chief Complaint/Reason for Visit: I am seeing this patient at the request of Dr. Marilyn MD. I have reviewed the current hospital record, available laboratory, cardiology and imaging studies as well as available out patient records. History of Present Illness: Admission H&P by Dr. Marilyn MD on 06/03/2019 Liz Bro is a 69 y.o. female presenting from doctor's office with a cellulitis of the lower extremities unresolved for several months. Had a trial of oral antibiotic, failed outpatient treatment. Elderly white female states that since March she had right and left anterior leg area blisters was seeing Dr. 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 History: Past Medical History: Diagnosis Date Arthritis Asthma CHF (congestive heart failure) ([facility]) COPD (chronic obstructive pulmonary disease) ([facility]) Disease of thyroid gland Past Surgical History: Procedure Laterality Date APPENDECTOMY BREAST SURGERY EYE SURGERY JOINT REPLACEMENT History reviewed. No pertinent family history. Social History Socioeconomic History Marital status: Spouse name: Not on file Number of children: Not on file Years of education: Not on file Highest education level: Not on file Occupational History Not on file Social Needs Financial resource strain: Not on file Food insecurity Worry: Not on file Inability: Not on file Transportation needs Medical: Not on file Non-medical: Not on file Tobacco Use Smoking status: Former Smoker Last attempt to quit: 08/03/2002 Years since quittin.8 Smokeless tobacco: Former User Substance and Sexual Activity Alcohol use: Not Currently Drug use: Never Sexual activity: Yes control/protection: Surgical Lifestyle Physical activity Days per week: Not on file Minutes per session: Not on file Stress: Not on file Relationships Social connections Talks on phone: Not on file Gets together: Not on file Attends judaism service: Not on file Active member of club or organization: Not on file Attends meetings of clubs or organizations: Not on file Relationship status: Not on file Other Topics Concern Not on file Social History Narrative Not on file Allergy Information: I have reviewed the patient's allergies. Antifungal - imidazole; Aspirin; Codeine; Fluoxetine hcl; and Salicylates Home Medications: Prior to Admission medications Medication Sig Start Date End Date Taking? Authorizing Provider carvedilol (COREG) 25 MG tablet Take 25 mg by mouth 2 (two) times a day . 03/10/19 Yes Historical Provider, docusate sodium (COLACE) 100 MG capsule Take 100 mg by mouth every 12 (twelve) hours as needed . 04/25/19 Yes Historical Provider, furosemide (LASIX) 40 MG tablet Take 40 mg by mouth 2 (two) times a day 40 mg AM and 20 mg PM per patient . 05/02/19 Yes Historical Provider, gabapentin (NEURONTIN) 100 MG capsule Take 100 mg by mouth once At bedtime . 01/13/19 Yes Historical Provider, levothyroxine (SYNTHROID, LEVOTHROID) 50 MCG tablet Take 50 mcg by mouth once . Yes Historical Provider, oxybutynin (DITROPAN) 5 MG tablet Take 5 mg by mouth 2 (two) times a day . 04/20/19 Yes Historical Provider, pravastatin (PRAVACHOL) 40 MG tablet Take 40 mg by mouth daily . 03/10/19 Yes Historical Provider, Current Scheduled Meds: carvedilol 25 mg Oral BID ceFAZolin (ANCEF) IVPB 2,000 mg Intravenous Q8H docusate sodium 100 mg Oral Daily enoxaparin (LOVENOX) injection 40 mg Subcutaneous Q12H KEATON furosemide 40 mg Oral BID gabapentin 100 mg Oral Nightly oxybutynin 5 mg Oral BID potassium chloride 20 mEq Oral BID pravastatin 40 mg Oral Daily Review of Systems: The following system(s) were reviewed and pertinent findings noted: Constitutional:No fever, no weight change, no night sweats Eyes:No visual changes ENT:No sore throat, no ear pain CV:No chest pain. No dypnea with exertion, no palpitations, no orthopnea. No ankle swelling and no symptoms of intermittent claudication. Resp:No cough, sputum, wheeze or hemoptysis. No pleurisy. GI:No abdominal pain.No nausea, vomiting or diarrhea. No rectal bleeding. :No frequency, urgency, dysuria or hematuria. Neuro:No headache, dizziness. No focal weakness or paresthesias. Integumentary:No skin rash MuscSkel:No joint pain, no swelling, no synovitis or joint effusion. Wound: Heme/lymphatic:No apparent lymphadenopathy. Psych:N/A Physical Examination: Vital Signs: Tmax: 98.2 Urine Output: 2300 Stool: not recorded BP (!) 133/54 Pulse 77 Temp 98.3 F (36.8 C) (Oral) Resp 15 Ht 5' 6 Wt 114.6 kg (252 lb 10.4 oz) SpO2 93% BMI 40.78 kg/m Exam Findings: Constitutional: Awake alert answers all HENT: Pupils reactive Head: No oral candidiasis Eyes: No icterus Neck: Supple Cardiovascular: Heart S1-S2 2 x 6 systolic murmur present no S3 Murmur Pulmonary/Chest: No crackles at the bases she has a history of pulmonary edema in the past Abdominal: Obese soft bowel sounds present Musculoskeletal: Right knee prosthesis no redness noted no calf tenderness Neurological: She has neuropathy etiology unclear she is borderline diabetic bilateral lower extremities neuropathy Skin: Right and left leg cellulitis present Wound: The right and left leg anterior area there were blisters before I do not see any open ulceration now Strong: IV: Right forearm site looks good Other: Decreased pulses right and left foot Current Antibiotics: Ancef 1 gm IV every 8 Hours I have personally reviewed the labs and results Test results Laboratory and Additional Data Reviewed: Results from last 7 days Lab Units 06/02/192000 SODIUM mmol/L 139 POTASSIUM mmol/L 2.8* CHLORIDE mmol/L 99 BUN mg/dL 14 CREATININE mg/dL 0.79 GLUCOSE mg/dL 121* CALCIUM mg/dL 8.9 Results from last 7 days Lab Units 06/02/192000 WBC K/mcL 7.24 HGB g/dL 14.3 HCT % 43.5 PLT K/mcL 223 Results from last 7 days Lab Units 06/02/192000 ALK PHOS U/L 98 BILIRUBIN TOTAL mg/dL 0.6 TOTAL PROTEIN g/dL 7.1 ALTR U/L 17 AST U/L 15 Current Cultures: 06/02/2019 Left Leg Wound Aerobic Culture: No Growth After 48 Hours. Final. 06/02/2019 Right Leg Wound Aerobic Culture: Normal Mariela After 48 Hours. Final. Radiology [facility]: MRI Lumbar Spine 01/30/2019 1. At L4-L5, there is degenerative grade 1 anterolisthesis secondary to facet arthropathy. There is severe spinal canal and bilateral lateral recess stenosis, and asymmetric mild to moderate left foraminal stenosis as described. 2. At L3-L4, there is moderate spinal canal stenosis and moderate bilateral foraminal stenosis as described. 3. At L5-S1, there is severe right and [id number] left neural foraminal stenosis as described. 4. Multiple small retroperitoneal lymph nodes are visualized, which are nonspecific. Left Hip/Pelvis X-Ray 09/16/2018 [facility]: 1. No acute osseous abnormality. 2. Mild left hip osteoarthrosis. 3. Mild enthesopathic change of the greater trochanter. Spine/Lumbosacral X-Ray 09/16/2018 [facility]: 1. No acute fracture, malalignment, or instability. 2. Moderate multilevel spondylosis with 3 mm degenerative anterolisthesis of L4 on L5. CVPS: Arterial Doppler: not on file Venous Doppler: not on file 2D Echo: not on file Surgeries: Please see above for surgical history Pathology: not on file documented in this encounter Initial Assessments - Cory Timmons - 06/08/2019 6:44 AM ESTAssessment & Plan Note - Paul Hurley MD - 06/07/2019 9:15 AM EST Miscellaneous Notes (unrecog nized section and content) Nutrition Care Initial Assessment Reason for visit: Dietitian Screen Nutrition Diagnosis: Increased energy expenditure related to healing needs as evidenced by cellulitis lower extremities blistered/draining areas Nutrition Intervention: continue to encourage intake of high protein food items all Meal and Snacks Nutrition Prescription: Diet: Regular Oral nutrition supplement: n/a Tube Feeding: n.a Nutrition Goals: PO intake > 75% most meals Start Date:06/08/2019 Expected End Date:06/14/2019 Nutrition Education: No needs at this time Assessment: Pertinent clinical information: impaired moility, non healing areas b/l lower extremities Past Medical History: Diagnosis Date Arthritis Asthma CHF (congestive heart failure) (HCC) COPD (chronic obstructive pulmonary disease) (HCC) Disease of thyroid gland Height: 5' 6 Current weight: 114.6 kg (252 lb 10.4 oz) BMI Body mass index is 40.78 kg/m . Weight hx: obese Wt Readings from Last 5 Encounters: 06/02/19 114.6 kg (252 lb 10.4 oz) 06/07/19 114.3 kg (252 lb) Recent intake: 75-100%. Current intake Likely meets estimated needs. Patient/family comments: good appetite Difficulty Chewing/Swallowing: No Skin Integrity: cellulitis GI Function: WNL Labs: Recent Labs 06/07/19 0520 NA 140 K 3.5 BICARB 30 CL 103 GLUCOSE 127* BUN 13 CREATININE 0.78 MG 1.7 Scheduled Meds: carvedilol 25 mg Oral BID ceFAZolin (ANCEF) IVPB 2,000 mg Intravenous Q8H clotrimazole-betamethasone Topical BID docusate sodium 100 mg Oral Daily enoxaparin (LOVENOX) injection 40 mg Subcutaneous Q12H KEATON fluconazole 200 mg Oral Daily furosemide 40 mg Oral Daily gabapentin 100 mg Oral Nightly oxybutynin 5 mg Oral BID potassium chloride 40 mEq Oral TID pravastatin 40 mg Oral Daily spironolactone 25 mg Oral Daily Continuous Infusions: Estimated Energy Needs Total Energy Estimated Needs: 1500-1800cal Method for Estimating Needs: [id number],adjbw Total Protein Estimated Needs: 84-92gms Method for Estimating Needs: 1.1-1.2gm/kg,adjbw Fluid Needs Total Fluid Estimated Needs: per MD Will follow and monitor appropriately. Cory Timmons DTR Associated Problem(s): Pleural thickening Chest x-ray report noted. Associated Problem(s): Acute pain of right knee Patient experienced spontaneous pain yesterday x-ray done showed no acute injury patient is pain-free now. Associated Problem(s): Chronic right shoulder pain Orthopedic consult appreciated patient had CT of the shoulder and local steroid injection. Associated Problem(s): Hypokalemia Improved. B/l LE's with drsgs clean and dry. Patient verbalized not wanting drsgs changed at this time with wanting to wait until seen by dr Joseph. This RN explained that order is written for daily drsg change. drsgs not repeated at this time per request. B/l LE drsgs changed per dr tomy. Polite and appreciative with provided care. Decaf coffee provided as request. Slight seeping to bilateral leg cellulitis. Old dressings removed and new dressing applied by this nurse Potassium IV hung . Patient complain of severe burning. Saline hung and infusing with potassium to relieve burning and potassium rate decreased to 70 ml/hr. Patient agrees to flu shot and educated and pamphlet provided. Admin. To right deltoid Associated Problem(s): Cellulitis of lower extremity Resolved. Patient oriented to room and call light. Fall precautions implemented and maintained. Pain kept at a tolerable level per pt Pt complained of mild rash with itching around IV site after vancomycin had been running in about 45 min. This RN saw mild redness and bumpy skin around IV and in a roxanna towards inside of elbow. This RN saw tat Rash had gone away after discontinuing IV. documented in this encounter Associated Problem(s): Well adult health check Discussed about health maintenance including cancer screening and vaccinations. Associated Problem(s): Morbid obesity (HCC) Lifestyle modification advised. documented in this encounter Durga Almeida DO - 01/28/2020 2:21 PM EDTHDurga carvalho RN - 01/28/2020 2:20 PM EDT ED Notes (unrecognized secti on and content) ED PROVIDER NOTE [facility] EMERGENCY DEPARTMENT NAME: Liz Bro AGE: 69 y.o. : 1950 VISIT DATE: 01/28/2020 CSN: [id number] PCP: Paul Hurley MD Chief Complaint Patient presents with Leg Pain Chief complaint: Left knee pain. History of chief complaint: This 69-year-old female presents to ER stating that she was trying to get into a car backseat 1 week ago when she injured her left knee. She denies any blunt trauma. She believes she may have twisted it but cannot recall exact mechanism of injury. Also has history of chronic cellulitis of the lower extremities left greater than right. She states she was hospitalized several months ago for severe case but states she has some mild cellulitis always. Patient has taken some Tylenol for her knee pain but nothing today. Patient ambulatory to the ER. Past Medical History: Diagnosis Date Arthritis Asthma CHF (congestive heart failure) (HCC) COPD (chronic obstructive pulmonary disease) (HCC) Disease of thyroid gland Past Surgical History: Procedure Laterality Date APPENDECTOMY and gallbladder at same time BREAST SURGERY CARPAL TUNNEL RELEASE Bilateral 2019 EYE SURGERY JOINT REPLACEMENT History reviewed. No pertinent family history. Social History Socioeconomic History Marital status: Spouse name: Not on file Number of children: Not on file Years of education: Not on file Highest education level: Not on file Occupational History Not on file Social Needs Financial resource strain: Not on file Food insecurity Worry: Not on file Inability: Not on file Transportation needs Medical: Not on file Non-medical: Not on file Tobacco Use Smoking status: Former Smoker Last attempt to quit: 08/03/2002 Years since quittin.4 Smokeless tobacco: Former User Substance and Sexual Activity Alcohol use: Not Currently Drug use: Never Sexual activity: Yes control/protection: Surgical Lifestyle Physical activity Days per week: Not on file Minutes per session: Not on file Stress: Not on file Relationships Social connections Talks on phone: Not on file Gets together: Not on file Attends judaism service: Not on file Active member of club or organization: Not on file Attends meetings of clubs or organizations: Not on file Relationship status: Not on file Other Topics Concern Not on file Social History Narrative Not on file Previous Medications Medication Sig carvedilol (COREG) 25 MG tablet Take 25 mg by mouth 2 (two) times a day . clotrimazole-betamethasone (LOTRISONE) cream Apply topically 2 (two) times a day . Rash on both legs. . docusate sodium (COLACE) 100 MG capsule Take 100 mg by mouth every 12 (twelve) hours as needed . furosemide (LASIX) 40 MG tablet Take 40 mg by mouth 2 (two) times a day 40 mg AM and 20 mg PM per patient . gabapentin (NEURONTIN) 100 MG capsule Take 100 mg by mouth once At bedtime . levothyroxine (SYNTHROID, LEVOTHROID) 100 MCG tablet TAKE 1 TABLET EVERY DAY levothyroxine (SYNTHROID, LEVOTHROID) 50 MCG tablet Take 50 mcg by mouth once . oxybutynin (DITROPAN) 5 MG tablet Take 5 mg by mouth 2 (two) times a day . potassium chloride (K-DUR) 10 MEQ CR tablet Take 2 (two) tablets (20 mEq total) by mouth 2 (two) times a day . pravastatin (PRAVACHOL) 40 MG tablet Take 40 mg by mouth daily . spironolactone (ALDACTONE) 25 MG tablet TAKE 1 TABLET BY MOUTH EVERY DAY Allergies Allergen Reactions Antifungal - Imidazole patient uncertain Aspirin GI Intolerance Codeine Other reaction(s): GI Upset Fluoxetine Hcl Other reaction(s): GI Upset Salicylates Other reaction(s): GI Upset Review of Systems Constitutional: Negative. Negative for fever. HENT: Negative. Eyes: Negative. Respiratory: Negative. Cardiovascular: Negative. Gastrointestinal: Negative. Endocrine: Negative. Genitourinary: Negative. Musculoskeletal: Positive for arthralgias and myalgias. Pain in left knee increased over the medial aspect. Increased pain with flexion extension of the knee. Skin: Positive for rash. Chronic cellulitis of the lower legs bilaterally, left usually worse than right. Allergic/Immunologic: Negative. Neurological: Negative. Hematological: Negative. Psychiatric/Behavioral: Negative. All other systems reviewed and are negative. Patient Vitals for the past 24 hrs: BP Temp Temp src Pulse Resp SpO2 01/28/20 1422 (!) 173/107 97.8 F (36.6 C) Oral 73 18 95 % Physical Exam Vitals signs and nursing note reviewed. Constitutional: Appearance: Normal appearance. HENT: Head: Normocephalic and atraumatic. Right Ear: External ear normal. Left Ear: External ear normal. Nose: Nose normal. No congestion or rhinorrhea. Mouth/Throat: Mouth: Mucous membranes are moist. Pharynx: Oropharynx is clear. No oropharyngeal exudate. Eyes: Extraocular Movements: Extraocular movements intact. Pupils: Pupils are equal, round, and reactive to light. Neck: Musculoskeletal: Normal range of motion and neck supple. Cardiovascular: Rate and Rhythm: Normal rate and regular rhythm. Pulses: Normal pulses. Heart sounds: Normal heart sounds. Pulmonary: Effort: Pulmonary effort is normal. Breath sounds: Normal breath sounds. Musculoskeletal: Normal range of motion. Skin: General: Skin is warm. Capillary Refill: Capillary refill takes less than 2 seconds. Findings: Erythema present. Comments: There is mild diffuse erythema of the lower legs mid to distal shins bilaterally left worse than right. There is some mild edema of the left lower leg and scant oozing. Neurological: General: No focal deficit present. Mental Status: She is alert and oriented to person, place, and time. Psychiatric: Mood and Affect: Mood normal. Behavior: Behavior normal. Laboratory & Radiographic Imaging (if done): Results for orders placed or performed during the hospital encounter of 01/28/20 POC CBC and Differential Result Value Ref Range WBC 6.60 4.50 - 11.00 K/mcL RBC 4.94 4.00 - 5.20 M/mcL Hemoglobin 14.3 12.0 - 16.0 g/dL Hematocrit 42.8 36.0 - 46.0 % MCV 86.6 80.0 - 100.0 fL MCH 28.9 26.0 - 34.0 pg MCHC 33.4 31.0 - 37.0 g/dL RDW - CV 14.4 11.6 - 14.8 % Platelets 215 150 - 400 K/mcL MPV 10.0 9.4 - 12.4 fL Neutrophils 66.5 % Lymphocytes 27.1 % Mixed 6.4 % Neutrophil Abs 4.4 1.7 - 7.0 K/mcl Lymphocyte Abs 1.8 0.9 - 4.0 K/mcl Mixed Abs 0.4 K/mcl POC Glucose Result Value Ref Range Glucose 123 (H) 65 - 99 mg/dL XR Knee Left 2 Views (Standard) Non-public Result 1. 3 compartment osteoarthritic changes, severely involving the medial compartment. Workstation ID: [id number] Procedures MDM Number of Diagnoses or Management Options Acute pain of left knee: Chronic cellulitis: Primary osteoarthritis of left knee: Diagnosis management comments: Patient did not want any analgesics except Tylenol. X-rays show significant DJD. Patient will also be treated for chronic cellulitis with Bactrim. The patient has been informed that they may have pre-hypertension or hypertension based on a blood pressure reading in the Emergency Department. I recommend that the patient call the primary care provider listed on their discharge instructions or a physician of their choice as soon as possible to arrange follow-up in the next 4 weeks for further evaluation of possible pre-hypertension or hypertension. . Clinical Impression: 1. Acute pain of left knee 2. Primary osteoarthritis of left knee 3. Chronic cellulitis ED Disposition ED Disposition Condition Comment Discharge Stable Liz Bro discharged to home/self care in stable condition. Follow-up Information 1. Paul Hurley MD. Specialty: Internal Medicine [address] [place] [address] Contact information for after-discharge care Follow-up information has not been specified. New Prescriptions sulfamethoxazole-trimethoprim (BACTRIM DS,SEPTRA DS) 800-160 mg per tablet Take 1 (one) tablet by mouth 2 (two) times a day for 10 days . Durga Almeida DO 01/28/20 1508 Pt notes left lower leg pain x 1 week and left knee pain since this morning. Pt has edema and erythema noted to left lower leg. Edema is weeping. documented in this encounter Source Comments (unrecognize d section and content) In the event this informatio n is protected by the Federal Confidentiality of Alcohol and Drug Abuse Patient Records regulations: The Federal rules restrict any use of the information to criminally investigate or prosecute any alcohol or drug abuse patient.[facility] Care Teams (unrecognized sec tion and content) Digital Marketing Consultant Relationship Specialty Start Date End Date Paul Hurley MD [address] [place] [address] PCP - General Internal Medicine 01/03/18 07/30/21 FOR RECORDS PERTAINING TO PATIENTS WHO ARE OR HAVE BEEN ENROLLED IN A CHEMICAL DEPENDENCY/SUBSTANCEABUSE PROGRAM, SOME INFORMATION MAY BE OMITTED. This clinical summary was aggregated from multiple sources. Caution should be exercised in using it in the provision of clinical care. This summary normalizes information from multiple sources, and as a consequence, information in this document may materially change the coding, format and clinical context of patient data. In addition, data may be omitted in some cases. CLINICAL DECISIONS SHOULD BE BASED ON THE PRIMARY CLINICAL RECORDS. [employer] provides no warranty or guarantee of the accuracy or completeness of information in this document.
[2023-06-20 17:02] LABS: BNP,B-Type NATRIURETIC PEPTIDE 45.1 pg/mL (0-100)
[2023-06-20 17:12] LABS: AST(SGOT) 21 U/L (15-37); Alanine Aminotransfer ALT/SGPT 14 U/L (13-56); Alkaline Phosphatase 106 U/L (45-117); Anion Gap 5 (5-15); BUN 13 mg/dL (7-18); BUN/Creat Ratio 11.5 RATIO (10-20); Bilirubin, Direct 0.05 mg/dL (0.00-0.30); Calcium,Total 9.4 mg/dL (8.5-10.1); Chloride 106 mmol/L (98-107); Creatinine, Serum 1.13 mg/dL (0.55-1.02); EST Glomerular Filtration Rate 50 mL/min (>60); Est Glom Filt Rate - Afr Amer 61 mL/min (>60); Estimated Creatinine Clearance 40.89 ml/min; Globulin 4.1 g/dL (2.2-4.2); Glucose 140 mg/dL (74-106); Protein, Total 7.1 g/dL (6.4-8.2); Sodium Level 140 mmol/L (136-145); Troponin-I HS 7 pg/mL (3.0-54.0)
[2023-06-20 20:17] VITALS: BP 121/92
== END 2023-06-20 20:18 | disposition home or self-care (01) ==
PROVIDERS: Emergency Provider Emergency Medicine; PCP Internal Medicine; Visit Provider Emergency Medicine
DX: I89.0 Lymphedema, not elsewhere classified (principal); I50.9 Heart failure, unspecified; I11.0 Hypertensive heart disease with heart failure; E11.40 Type 2 diabetes mellitus with diabetic neuropathy, unspecified; E11.59 Type 2 diabetes mellitus with other circulatory complications; I87.2 Venous insufficiency (chronic) (peripheral); L03.90 Cellulitis, unspecified; G47.33 Obstructive sleep apnea (adult) (pediatric); E66.9 Obesity, unspecified; Z79.899 Other long term (current) drug therapy; Z86.718 Personal history of other venous thrombosis and embolism; Z99.81 Dependence on supplemental oxygen; Z87.891 Personal history of nicotine dependence
CPT/HCPCS: 71045; 80048; 80076; 83880; 84484; 85025; 87040; 93005; 99285; A4216

== ENCOUNTER 2023-08-13 09:15 | Outpatient (RCR) | payer MEDICARE, MEDICAID, SELFPAY ==
[2023-07-23 09:03] VITALS: BP 134/71; PULSE 86; RESP 18; TEMP 37.2; BMI 49.8
[2023-07-23 11:21] LABS: Free T3 2.2 pg/mL (2.18-3.98); Prealbumin 17.8 mg/dL (20.0-40.0); T4 Free Direct 1.28 ng/dL (0.76-1.46); Thyroid Stim Hormone (TSH) 2.99 uIU/mL (0.358-3.74)
--- NOTE | 2023-07-23 13:24 | PN.PCM_ITS ---
History of Present Illness Date of Service: 07/23/23 Chief Complaint: RLE wounds, bilateral lower extremity swelling History of Wound: Liz is a pleasant 73 yo woman that presents to the wound center for bilateral lower extremity edema and blisters of her right lower leg with recent cellulitis. She was seen in the ER on Patient has been treated at the [facility] in the past for similar wounds, most recently September 2022. She has also been seen in the vascular surgery clinic where she was evaluated her for BLE DVT and venous insufficiency. 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 GSV ablation has been considered if she continued to develop recurrence of wounds. Patient's medical history is also significant for CHF, COPD, T2DM, lymphedema. Objective Data Objective Data Vital Signs: Vital Signs Temp Pulse Resp BP O2 Del Method 98.9 F 86 18 134/71 H Room Air 07/23/23 09:03 07/23/23 09:03 07/23/23 09:03 07/23/23 09:03 07/23/23 09:03 Oxygen Delivery Method Room Air Weight: 140.16 kg Body Mass Index (BMI) 49.8 Lab / Micro Data Labs: Laboratory Results - last 24 hr 07/23/23 10:32: Prealbumin 17.8 L, TSH 2.99, Free T4 1.28, Free T3 pg/dL 2.2 Debridement Note Debridement Note Post-Debridement Measurements and Additional Note: Post-Debridement Measurements/Treatment - Nurse 1 - General Ulcer Assessment Start: 07/23/23 09:03 Freq: Status: Active Protocol: [email or web address] Activity Type Activity Date Activity User E-sign Co-sign Detail Recorded Client Recorded Date Recorded By Document 07/23/23 09:03 KW Desktop 07/23/23 09:16 KW 07/23/23 09:03 - Today's Visit Information Type of service Initial Visit Arrival Mode Ambulatory Accompanied by Patient Identification Verified (Name & Yes ) Height and Weight Height 5 ft 6 in Weight 140.16 kg Weight in Pounds 309.0 lbs Body Mass Index (BMI) 49.8 BMI Classification Obese BSA - Marie 2.41 Vital Signs Temperature (97.8 F-99.1 F) 98.9 F Temperature Source Temporal Pulse Rate (60-100) 86 Pulse Location Monitor Respiratory Rate (12-18) 18 Respiratory rate source Observation Oxygen Delivery Method Room Air Blood Pressure (90/60-120/80) 134/71 H Blood Pressure Mean (mm Hg) 92 Source Monitor Position Semi-Fowlers Blood Pressure Location Left Arm History Since Last Visit- (Skip if this is Patient's initial visit) Left Footwear Regular Shoe Right Footwear Regular Shoe Pain Scale: 0-10 Numeric Is Patient Pain Free? Yes Lower Extremity Assessment/ Foot Assessment/ Toe Nail Assessment Right -Hair Growth on Legs No -Hair Growth on Toes No -Thick Yes -Discolored Yes Left -Hair Growth on Legs No -Hair Growth on Toes No -Thick Yes -Discolored Yes Neuropathy Assessment Feet - Top Side and Bottom <Entered> (a) Communication Assessment Preferred language Montenegrin Able to Read Yes Able to Write Yes Communication Tools None Caregiver Communication Skills No Impairment Impairment Right Hearing Abillity Normal Left Hearing Abillity Normal Visual Assistive Devices Glasses Teaching Assessment Preferences Verbal,Written, Demonstration Barriers to Learning None Readiness To Learn Excellent Willingness to Engage in Self Management High Activies Readiness to Engage in Self Management High Activities Anxiety Level Calm Cooperation Cooperative Perception Coherent Interest in Health Problem Asks Questions Education Importance Acknowledges Need Does Patient Smoke tobacco or other No substances Smoking Status Never smoker Is Patient Diabetic No Functional Assessment Recent Decline in Ability to Perform Denies Any Declines Assistive Device With Patient No Culture/Christianity/Banking Management Consulting Manager Cultural/Christianity Needs that may affect No Treatment Plan Would you allow our hospital community service director to No meet you for the purpose of spiritual/ emotional support? Banking Management Consulting Manager to contact place of mu-ism No (a) 1 - + WC - Nurse 1 - General Ulcer Measurement Start: 07/23/23 09:03 Freq: Status: Active Protocol: Activity Type Activity Date Activity User E-sign Co-sign Detail Recorded Client Recorded Date Recorded By Document 07/23/23 09:03 KW Desktop 07/23/23 09:16 KW 07/23/23 09:03 Wound Center Nurse 1 #5 RLE edema -Current Size (cm) - Length 0.1 -Current Size (cm) - Width 0.1 -Current Size (cm) - Depth 0.1 -Total Square Cm 0.01 -Date of Last Picture (Recall this 07/23/23 field) -Photo Taken Yes -Anesthetic Used 4% Lidocaine Solution Right Calf (cm) 59.4 Right Ankle (cm) 31 Left Calf (cm) 56.5 Left Ankle (cm) 29.5 WC - Nurse 2 - General Ulcer CM Notes Start: 07/23/23 09:03 Freq: Status: Active Protocol: Activity Type Activity Date Activity User E-sign Co-sign Detail Recorded Client Recorded Date Recorded By Document 07/23/23 09:32 Desktop 07/23/23 09:43 GM 07/23/23 09:32 Wound Center Nurse 2 #5 RLE edema -Time 09:41 -Correct Patient Yes -Correct Side, Site, Position Yes Pain Scale: 0-10 Numeric Is Patient Pain Free? Yes - Nurse 3 - General Ulcer D/C NN Start: 07/23/23 09:03 Freq: Status: Active Protocol: Activity Type Activity Date Activity User E-sign Co-sign Detail Recorded Client Recorded Date Recorded By Document 07/23/23 09:54 KW Desktop 07/23/23 09:54 KW 07/23/23 09:54 Wound Care Center Nurse 3 BLE -Multi-Layered Wrap Application Unna Boot - Bilateral ($) Pain Scale: 0-10 Numeric Is Patient Pain Free? Yes WC - Visit Discharge Discharge Condition Stable Ambulatory Status Ambulatory Transportation Private Auto Medication Reconcilliation completed & No provided to patient/care provider Clinical Summary of Care Provided Yes
--- NOTE | 2023-07-23 14:06 | PCM.WC.HP ---
History of Present Illness Date of Service: 07/23/23 Chief Complaint: RLE wounds, bilateral lower extremity swelling History of Wound: Liz is a pleasant 73 yo woman that presents to the wound center for bilateral lower extremity edema and blisters of her right lower leg with recent cellulitis. She was seen in the ER on 06/20/23 and diagnosed with increased edema and possible cellulitis. She was treated with Keflex and Bumetanide. Her edema has improved some but is still present and she continues to have pain and drainage and blisters of her right lower leg. She does have compression stockings but it is difficult for her to wear when her legs are more swollen and when they are painful. She tries to elevate her legs when she is sitting but is not always consistent with doing this. She has been wrapping her leg with gauze when it is seeping but otherwise has not been doing any regular dressings. Patient has been treated at the wound center in the past for similar wounds, most recently September 2022. She has also been seen in the vascular surgery clinic where she was evaluated her for BLE DVT and venous insufficiency. 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 GSV ablation has been considered if she continued to develop recurrence of wounds. Last venous study was 03/2022. Last A1C 01/2023 was 6.4%. Last TSH - 01/2022 Patient's medical history is also significant for CHF, COPD, T2DM, lymphedema. She has a CPAP but has not been using this due to needing a new mask. She states that a prescription was to be sent and she never received the mask. Her current mask has a hole in it. She is also on oxygen but yesterday the concentrator is not working and she needs to call the company to come and check the device. She reports chills but no fever. She has pain and burning in her right leg that is worse at night. [facility] Medical History Abdominal pain Alcohol use Asthma Back pain Bladder disease Blister Cardiology follow-up encounter Chronic respiratory failure with hypoxia Constipation COPD (chronic obstructive pulmonary disease) CPAP (continuous positive airway pressure) dependence Debility Depression Depression Dermatitis Diabetes Diabetes mellitus type 2 in obese Dietary restriction Difficulty swallowing Difficulty swallowing DVT (deep venous thrombosis) DVT, bilateral lower limbs Easy bruising Essential hypertension Former smoker Gastric ulcer GERD (gastroesophageal reflux disease) Health care maintenance History of CHF (congestive heart failure) History of echocardiogram History of edema History of pain when walking Hx of cyst of breast Hyperlipidemia Hypertension Hypothyroidism Inactivity Left knee pain Left ventricular hypertrophy Leg cramps Lymphedema Morbid obesity with BMI of 45.0-49.9, adult Neuropathy On home oxygen therapy DOLORES (obstructive sleep apnea) Osteoarthritis Pneumonia due to COVID-19 virus (01/30/21) Secondary pulmonary arterial hypertension Shingles Shortness of breath on exertion Sore throat Syncope Type 2 diabetes mellitus Ulcer of right lower extremity Urinary incontinence with continuous leakage Walker as ambulation aid Wears dentures Wears glasses Home Medications fenofibrate nanocrystallized 48 mg tablet 48 mg PO DAILY 05/07/21 [History Last Taken Unknown] calcium carb 300 mg-D3 20 mcg-mag ox 25 mg-copy operator 0.5 [id number] tablet (Caltrate-D3 Plus Minerals) 1 tab PO DAILY 06/09/21 [History Last Taken Unknown] Nebulizer #1 ea 10/06/21 [Rx Last Taken Unknown] docusate sodium 100 mg capsule (Stool Softener) 100 mg PO BID 06/04/22 [History Last Taken Unknown] furosemide 40 mg tablet 40 mg PO BID HEART FAILURE #180 tabs 09/04/22 [Rx Last Taken Unknown] fluticasone fur. 200 mcg-umeclid 62.5 mcg-vilant 25 mcg inhalat.powder (Trelegy Ellipta) 1 inh inhalation DAILY #60 ea 10/01/22 [Rx Last Taken Unknown] Handicap Placard #1 ea 11/02/22 [Rx Last Taken Unknown] Bedside Commode #1 ea 02/11/23 [Rx Last Taken Unknown] walker (Ultra-Light Rollator misc) #1 ea 02/11/23 [Rx Last Taken Unknown] levothyroxine 100 mcg tablet See Rx Instructions .Route .COMPLEX #90 tabs 04/28/23 [Rx Last Taken Unknown] albuterol sulfate 90 mcg/actuation aerosol inhaler 2 puff inhalation Q6H PRN shortness of breath or wheezing #8.5 grams 05/17/23 [Rx Last Taken Unknown] atorvastatin 40 mg tablet 40 mg PO QHS 06/20/23 [History Last Taken Unknown] bumetanide 1 mg tablet 1 mg PO BID #14 tabs 06/20/23 [Rx Last Taken Unknown] carvedilol 25 mg tablet 25 mg PO DAILY 06/20/23 [History Last Taken Unknown] cephalexin 500 mg capsule 500 mg PO TID 7 days #21 caps 06/20/23 [Rx Last Taken Unknown] duloxetine 60 mg capsule,delayed release 60 mg PO DAILY 06/20/23 [History Last Taken Unknown] oxybutynin chloride 5 mg tablet 5 mg PO BID bladder 06/20/23 [History Last Taken Unknown] pantoprazole 40 mg tablet,delayed release 40 mg PO DAILY 06/20/23 [History Last Taken Unknown] Allergy/AdvReac Type Severity Reaction Status Date / Time aspirin AdvReac Abd Verified 06/20/23 15:45 cramps/diarrhea codeine AdvReac Abd Verified 06/20/23 15:45 cramps/diarrhea Penicillins AdvReac Hives Verified 06/20/23 15:45 Family History Grandfather Cancer Daughter Ovarian cancer Brother Diabetes Kidney disease Surgical History History of bunionectomy History of esophagogastroduodenoscopy (EGD) Hx of cholecystectomy Hx of colonoscopy Social History Smoking Status: Never smoker Tobacco: How many years used: 30 how long ago did patient quit smokin years alcohol intake: never substance use type: does not use what type of physical activity do you participate in: none ROS Constitutional Constitutional: Reports chills; Denies fatigue or fever(s) Eyes Eyes: Denies blurry vision, change in vision or loss of vision ENT HEENT: Denies dysphagia, hearing loss or sore throat Cardiovascular Cardiovascular: Reports edema and leg edema; Denies chest pain or palpitations Respiratory/Chest Respiratory/Chest: Denies dry cough, dyspnea, dyspnea on exertion, productive cough or wheezing Gastrointestinal Gastrointestinal: Denies diarrhea, nausea or vomiting Genitourinary Genitourinary: Reports urinary incontinence; Denies dysuria or polyuria Musculoskeletal Musculoskeletal: Reports arthralgias, difficulty walking, extremity pain and joint stiffness; Denies muscle weakness Integumentary Integumentary: Reports erythema and wounds Neurologic Neurologic: Denies dizziness, memory loss or weakness Psychiatric Psychiatric: Denies homicidal ideation or suicidal ideation Endocrine Endocrinology: Denies polydipsia, polyphagia or polyuria Hematologic/Lymphatic Hematologic/Lymphatic: Denies easy bleeding or easy bruising Allergic/Immunologic Allergic/Immunologic: Denies throat swelling, tongue swelling or urticaria Vital Signs Vital Signs Vital Signs: 07/23/23 09:03 Temperature 98.9 F Temperature Source Temporal Pulse Rate 86 Respiratory Rate 18 Blood Pressure 134/71 H Blood Pressure Mean 92 Blood Pressure Source Monitor Blood Pressure Position Semi-Fowlers Blood Pressure Location Left Arm Oxygen Delivery Method Room Air Weight Weight: 140.16 kg Body Mass Index (BMI) 49.8 Physical Exam Const alert, oriented x3 and no apparent distress General Appearance: cooperative and comfortable Nutritional Appearance: obese HEENT normocephalic and head/scalp atraumatic Lymph Lymphatic: lymphedema severe and pitting Resp normal respiratory effort Effort and Inspection: able to speak in complete sentences Cardio regular rate and regular rhythm Extremity General Extremity: edema bilateral lower extremity Details: severe (with skin changes associated with lymphedema, thickened nodular appearance from mid lalen to ankle) Skin General Skin Exam: erythema, venous stasis and dermatitis Wounds: wounds noted Wound Narrative: as in clinical panel Psych mental status grossly normal, thought process normal, cooperative and affect normal Debridement Note Debridement Note Wound debrided: right lower extremity Laterality: Right No debridement was completed: No debridement was completed today (multiple recently opened blisters without slough throughout lower leg with skin breakdown) Post-Debridement Measurements and Additional Note: Post-Debridement Measurements/Treatment - Nurse 1 - General Ulcer Assessment Start: 07/23/23 09:03 Freq: Status: Active Protocol: KELSEY Activity Type Activity Date Activity User E-sign Co-sign Detail Recorded Client Recorded Date Recorded By Document 07/23/23 09:03 KW Desktop 07/23/23 09:16 KW 07/23/23 09:03 - Today's Visit Information Type of service Initial Visit Arrival Mode Ambulatory Accompanied by Patient Identification Verified (Name & Yes ) Height and Weight Height 5 ft 6 in Weight 140.16 kg Weight in Pounds 309.0 lbs Body Mass Index (BMI) 49.8 BMI Classification Obese BSA - Marie 2.41 Vital Signs Temperature (97.8 F-99.1 F) 98.9 F Temperature Source Temporal Pulse Rate (60-100) 86 Pulse Location Monitor Respiratory Rate (12-18) 18 Respiratory rate source Observation Oxygen Delivery Method Room Air Blood Pressure (90/60-120/80) 134/71 H Blood Pressure Mean (mm Hg) 92 Source Monitor Position Semi-Fowlers Blood Pressure Location Left Arm History Since Last Visit- (Skip if this is Patient's initial visit) Left Footwear Regular Shoe Right Footwear Regular Shoe Pain Scale: 0-10 Numeric Is Patient Pain Free? Yes Lower Extremity Assessment/ Foot Assessment/ Toe Nail Assessment Right -Hair Growth on Legs No -Hair Growth on Toes No -Thick Yes -Discolored Yes Left -Hair Growth on Legs No -Hair Growth on Toes No -Thick Yes -Discolored Yes Neuropathy Assessment Feet - Top Side and Bottom <Entered> (a) Communication Assessment Preferred language Turkmen Able to Read Yes Able to Write Yes Communication Tools None Caregiver Communication Skills No Impairment Impairment Right Hearing Abillity Normal Left Hearing Abillity Normal Visual Assistive Devices Glasses Teaching Assessment Preferences Verbal,Written, Demonstration Barriers to Learning None Readiness To Learn Excellent Willingness to Engage in Self Management High Activies Readiness to Engage in Self Management High Activities Anxiety Level Calm Cooperation Cooperative Perception Coherent Interest in Health Problem Asks Questions Education Importance Acknowledges Need Does Patient Smoke tobacco or other No substances Smoking Status Never smoker Is Patient Diabetic No Functional Assessment Recent Decline in Ability to Perform Denies Any Declines Assistive Device With Patient No Culture/Faith/Criminal Records Technician Cultural/Faith Needs that may affect No Treatment Plan Would you allow our hospital blueprint machine operator to No meet you for the purpose of spiritual/ emotional support? Criminal Records Technician to contact place of confucianism No (a) 1 - + WC - Nurse 1 - General Ulcer Measurement Start: 07/23/23 09:03 Freq: Status: Active Protocol: Activity Type Activity Date Activity User E-sign Co-sign Detail Recorded Client Recorded Date Recorded By Document 07/23/23 09:03 KW Desktop 07/23/23 09:16 KW 07/23/23 09:03 Wound Center Nurse 1 #5 RLE edema -Current Size (cm) - Length 0.1 -Current Size (cm) - Width 0.1 -Current Size (cm) - Depth 0.1 -Total Square Cm 0.01 -Date of Last Picture (Recall this 02/02/24 field) -Photo Taken Yes -Anesthetic Used 4% Lidocaine Solution Right Calf (cm) 59.4 Right Ankle (cm) 31 Left Calf (cm) 56.5 Left Ankle (cm) 29.5 - Nurse 2 - General Ulcer CM Notes Start: 07/23/23 09:03 Freq: Status: Active Protocol: Activity Type Activity Date Activity User E-sign Co-sign Detail Recorded Client Recorded Date Recorded By Document 07/23/23 09:32 Desktop 07/23/23 09:43 GM 07/23/23 09:32 Wound Center Nurse 2 #5 RLE edema -Time 09:41 -Correct Patient Yes -Correct Side, Site, Position Yes Pain Scale: 0-10 Numeric Is Patient Pain Free? Yes - Nurse 3 - General Ulcer D/C NN Start: 07/23/23 09:03 Freq: Status: Active Protocol: Activity Type Activity Date Activity User E-sign Co-sign Detail Recorded Client Recorded Date Recorded By Document 07/23/23 09:54 KW Desktop 07/23/23 09:54 07/23/23 09:54 Wound Care Center Nurse 3 BLE -Multi-Layered Wrap Application Unna Boot - Bilateral ($) Pain Scale: 0-10 Numeric Is Patient Pain Free? Yes WC - Visit Discharge Discharge Condition Stable Ambulatory Status Ambulatory Transportation Private Auto Medication Reconcilliation completed & No provided to patient/care provider Clinical Summary of Care Provided Yes Lab / Micro Data Labs: Laboratory Results - last 24 hr 07/23/23 10:32: Prealbumin 17.8 L, TSH 2.99, Free T4 1.28, Free T3 pg/dL 2.2 Assessment/Plan Assessment/Plan (1) Debility: CODE(S): R53.81 - Other malaise (2) Osteoarthritis: CODE(S): M19.90 - Unspecified osteoarthritis, unspecified site QUALIFIERS: Osteoarthritis location: multiple joints Osteoarthritis type: primary Qualified Code(s): M15.9 - Polyosteoarthritis, unspecified (3) COPD (chronic obstructive pulmonary disease): CODE(S): J44.9 - Chronic obstructive pulmonary disease, unspecified QUALIFIERS: COPD type: unspecified COPD Qualified Code(s): J44.9 - Chronic obstructive pulmonary disease, unspecified (4) Edema of both lower extremities: CODE(S): R60.0 - Localized edema (5) Venous insufficiency: CODE(S): I87.2 - Venous insufficiency (chronic) (peripheral) (6) Chronic hypoxemic respiratory failure: CODE(S): J96.11 - Chronic respiratory failure with hypoxia (7) Pulmonary hypertension: CODE(S): I27.20 - Pulmonary hypertension, unspecified (8) Morbid obesity with BMI of 45.0-49.9, adult: CODE(S): E66.01 - Morbid (severe) obesity due to excess calories; Z68.42 - Body mass index [BMI] 45.0-49.9, adult (9) Lymphedema: CODE(S): I89.0 - Lymphedema, not elsewhere classified (10) Hypothyroidism: CODE(S): E03.9 - Hypothyroidism, unspecified QUALIFIERS: Hypothyroidism type: unspecified Qualified Code(s): E03.9 - Hypothyroidism, unspecified (11) Type 2 diabetes mellitus: CODE(S): E11.9 - Type 2 diabetes mellitus without complications QUALIFIERS: Diabetes mellitus termite control representative insulin use: without retirement use Diabetes mellitus complication status: with other specified complication Qualified Code(s): E11.69 - Type 2 diabetes mellitus with other specified complication (12) Chronic respiratory failure with hypoxia: CODE(S): J96.11 - Chronic respiratory failure with hypoxia (13) DOLORES (obstructive sleep apnea): CODE(S): G47.33 - Obstructive sleep apnea (adult) (pediatric) (14) Venous ulcer of right lower extremity without varicose veins: CODE(S): I87.2 - Venous insufficiency (chronic) (peripheral); L97.919 - Non-pressure chronic ulcer of unspecified part of right lower leg with unspecified severity PLAN: Plan Evaluation and examination performed today in clinic as annotated above. Chart reviewed for previous testing and history. At home wound-care instructions: Will try to improve her edema with compression using UNNA boots to bilateral LE. She has had theses and 3M dressings previously and tolerated them well. She was instructed to keep dressings clean and dry. Use a cast cover or sponge bath to avoid getting dressings wet. Off-loading: The patient was instructed to avoid pressure and friction on the affected areas. Reposition every 2 hours at minimum. Avoid prolonged standing and/or dangling of legs. When seated, feet should be elevated at chest level. Frequent ambulation is encouraged. Diet: Patient encouraged to increase protein intake while taking caution to avoid high carbohydrate and/or sugar intake. Encouraged weight loss. Labs/cultures/imaging: Check thyroid labs and pre-albumin. Will also add A1C. Recent renal function and CBC reviewed. Venous testing ordered to evaluate for possible recurrence of blood clots and to assess her for venous insufficiency progression to consider treatment with vascular surgery for ablation. Encouraged her to schedule follow up appointment with her PCP to discuss incontinence and diuretic management. Will contact [facility] in [place] to assist her in determining steps needed to get her a CPAP mask to improve DOLORES and pulmonary HTN treatment compliance which is adding to her decompensated lymphedema. Follow-up: Return in 1 week for wound care follow up. Return sooner or report to the emergency room should symptoms worsen, or new symptoms arise. Note: [employer] speech recognition certified cytotechnologist software was used to create portions of this document. Sound-alike and misspelled words, as well as other certified cytotechnologist errors may be contained in the documentation.
--- NOTE | 2023-07-30 07:39 | VDLE_ITS ---
Reason For Study: BLE Ulcers RIGHT LEFT CFV is compressible, spontaneous, phasic, CFV is compressible, spontaneous, phasic, competent and demonstrates normal competent, and demonstrates normal augmentation. augmentation. FV is compressible, spontaneous, phasic, FV is compressible, spontaneous, phasic, competent and demonstrates normal competent and demonstrates normal augmentation. augmentation. POP V is compressible, spontaneous, phasic, POP V is compressible, spontaneous, phasic, competent and demonstrates normal competent and demonstrates normal augmentation. augmentation. T/P Trunk is compressible. T/P Trunk is compressible. PTV is compressible. PTV is compressible. PTV visualized in segments. PTV visualized in segments. Unable to visualize Derek V due to body Unable to visualize Derek V due to body habitus and mottled skin. habitus and mottled skin. GSV appears tortuous from distal thigh to mid SFJ is competent and measures 0.96 cm. calf. multiple branches noted throughout. GSV proximal thigh measures 0.95 x 0.93 cm. Portions of SSV appear PARTIALLY COMPRESSIBLE GSV at knee measures 0.70 x 0.67 cm. with heterogenous echoes consistent with GSV is competent throughout. CHRONIC SVT. SSV proximal calf is competent and measures SFJ is competent and measures 1.05 cm. 0.52 x 0.46 cm. GSV proximal thigh measures 0.85 x 0.85 cm. GSV at knee measures 0.72 x 0.67 cm. GSV above knee is competent. GSV below knee is INCOMPETENT for greater than 0.5 seconds. SSV proximal calf is competent and measures 0.26 x 0.32 cm. Procedure This is a venous duplex using B-mode, color flow and spectral Doppler. Exam performed in department. Patient Scanned in Reverse Trendelenburg position. The study was technically limited. Limited views were obtained. VL/Venous Duplex US - Remberto Extrem Interpretation Summary Chronic superficial vein thrombosis noted in the right small saphenous vein. Deep veins of the bilateral lower extremities are patent and compressible segme ntally. There is no evidence of bilateral lower extremity deep vein thrombosis. The bilateral great saphenous veins appear patent and compressible segmentally. Positive for reflux in the right great saphenous vein below the knee. Ordering Physician: Sneha Rosa Referring Physician: Luis Cortés Performed By: Micah Allred RVT
--- NOTE | 2023-07-30 09:05 | WC ---
2.2.24 initial BLE Edema
[2023-07-30 09:43] VITALS: BP 180/56; PULSE 80; RESP 18; TEMP 36.1; BMI 49.8
--- NOTE | 2023-07-30 12:42 | PCM.WC.PN ---
History of Present Illness Date of Service: 07/30/23 Chief Complaint: RLE wounds, bilateral lower extremity swelling History of Wound: Liz is a pleasant 73 yo woman that presents to the wound center for bilateral lower extremity edema and blisters of her right lower leg with recent cellulitis. She was seen in the ER on 06/20/23 and diagnosed with increased edema and possible cellulitis. She was treated with Keflex and Bumetanide. Her edema has improved some but is still present and she continues to have pain and drainage and blisters of her right lower leg. She does have compression stockings but it is difficult for her to wear when her legs are more swollen and when they are painful. She tries to elevate her legs when she is sitting but is not always consistent with doing this. She has been wrapping her leg with gauze when it is seeping but otherwise has not been doing any regular dressings. Patient has been treated at the wound center in the past for similar wounds, most recently September 2022. She has also been seen in the vascular surgery clinic where she was evaluated her for BLE DVT and venous insufficiency. 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 GSV ablation has been considered if she continued to develop recurrence of wounds. Last venous study was 03/2022. Last A1C 01/2023 was 6.4%. Last TSH - 01/2022 Patient's medical history is also significant for CHF, COPD, T2DM, lymphedema. She has a CPAP but has not been using this due to needing a new mask. She states that a prescription was to be sent and she never received the mask. Her current mask has a hole in it. She is also on oxygen but yesterday the concentrator is not working and she needs to call the company to come and check the device. She reports chills but no fever. She has pain and burning in her right leg that is worse at night. Subjective Subjective Liz returns for evaluation and treatment of bilateral lymphedema and ulcers of R LE. She tolerated treatment with UNNA boots with improvement in edema and ulcers. Decreased pain. Objective Data Objective Data Vital Signs: Vital Signs Temp Pulse Resp BP O2 Del Method 97 F L 80 18 180/56 H Room Air 07/30/23 09:43 07/30/23 09:43 07/30/23 09:43 07/30/23 09:43 07/23/23 09:03 Oxygen Delivery Method Room Air Weight: 140.16 kg Body Mass Index (BMI) 49.8 Physical Exam Const alert, oriented x3 and no apparent distress General Appearance: cooperative and comfortable Nutritional Appearance: obese HEENT normocephalic and head/scalp atraumatic Lymph Lymphatic: lymphedema severe and pitting Resp normal respiratory effort Effort and Inspection: able to speak in complete sentences Cardio regular rate and regular rhythm Extremity General Extremity: edema bilateral lower extremity Details: severe (with skin changes associated with lymphedema, thickened nodular appearance from mid allen to ankle) Skin General Skin Exam: erythema, venous stasis and dermatitis Wounds: wounds noted Wound Narrative: as in clinical panel Psych mental status grossly normal, thought process normal, cooperative and affect normal Debridement Note Debridement Note Wound debrided: Right LE cluster Laterality: Right No debridement was completed: No debridement was completed today Post-Debridement Measurements and Additional Note: Post-Debridement Measurements/Treatment WC - Nurse 1 - General Ulcer Assessment Start: 07/23/23 09:03 Freq: Status: Active Protocol: KELSEY Activity Type Activity Date Activity User E-sign Co-sign Detail Recorded Client Recorded Date Recorded By Document 07/23/23 09:03 KW Desktop 07/23/23 09:16 KW Document 07/30/23 09:43 RB Desktop 07/30/23 09:46 RB 07/23/23 07/30/23 09:03 09:43 - Today's Visit Information Type of service Initial Visit Follow-up Visit (Physician/[facility] ) Arrival Mode Ambulatory Ambulatory Transfer Assistance None Accompanied by Patient Identification Verified (Name & Yes Yes ) Patient Requires Transmission-Based No Precautions Height and Weight Height 5 ft 6 in Weight 140.16 kg Weight in Pounds 309.0 lbs Body Mass Index (BMI) 49.8 49.8 BMI Classification Obese Obese BSA - Marie 2.41 Vital Signs Temperature (97.8 F-99.1 F) 98.9 F 97 F L Temperature Source Temporal Temporal Pulse Rate (60-100) 86 80 Pulse Location Monitor Monitor Respiratory Rate (12-18) 18 18 Respiratory rate source Observation Observation Oxygen Delivery Method Room Air Blood Pressure (90/60-120/80) 134/71 H 180/56 H Blood Pressure Mean (mm Hg) 92 97 Source Monitor Monitor Position Semi-Fowlers Semi-Fowlers Blood Pressure Location Left Arm Left Arm History Since Last Visit- (Skip if this is Patient's initial visit) Have you changed medications since your No last visit? Any new allergies or adverse reactions No Had a fall/change in ADL's that may No increase risk of falls Signs or symptoms of abuse and/or No neglect since last visit Have you been in the hospital since your No last visit? Has dressing in place as prescribed Yes Has compression in place as prescribed Yes Has offloadiing in place as prescribed No Experienced any changes in pain level or No management Left Footwear Regular Shoe Right Footwear Regular Shoe Pain Scale: 0-10 Numeric Is Patient Pain Free? Yes Yes Lower Extremity Assessment/ Foot Assessment/ Toe Nail Assessment Right -Hair Growth on Legs No -Hair Growth on Toes No -Thick Yes -Discolored Yes Left -Hair Growth on Legs No -Hair Growth on Toes No -Thick Yes -Discolored Yes Neuropathy Assessment Feet - Top Side and Bottom <Entered> (a) Communication Assessment Preferred language [place] Able to Read Yes Able to Write Yes Communication Tools None Caregiver Communication Skills No Impairment Impairment Right Hearing Abillity Normal Left Hearing Abillity Normal Visual Assistive Devices Glasses Teaching Assessment Preferences Verbal,Written, Demonstration Barriers to Learning None Readiness To Learn Excellent Willingness to Engage in Self Management High Activies Readiness to Engage in Self Management High Activities Anxiety Level Calm Cooperation Cooperative Perception Coherent Interest in Health Problem Asks Questions Education Importance Acknowledges Need Does Patient Smoke tobacco or other No substances Smoking Status Never smoker Is Patient Diabetic No Functional Assessment Recent Decline in Ability to Perform Denies Any Declines Assistive Device With Patient No Culture/Scientology/Nocturnist Physician Cultural/Scientology Needs that may affect No Treatment Plan Would you allow our hospital certified solid waste facility operator to No meet you for the purpose of spiritual/ emotional support? Nocturnist Physician to contact place of restoration No (a) 1 - + WC - Nurse 1 - General Ulcer Measurement Start: 07/23/23 09:03 Freq: Status: Active Protocol: Activity Type Activity Date Activity User E-sign Co-sign Detail Recorded Client Recorded Date Recorded By Document 07/23/23 09:03 KW Desktop 07/23/23 09:16 KW Document 07/30/23 09:43 RB Desktop 07/30/23 09:46 RB 07/23/23 07/30/23 09:03 09:43 Wound Center Nurse 1 #5 RLE edema -Current Size (cm) - Length 0.1 0.1 -Current Size (cm) - Width 0.1 0.1 -Current Size (cm) - Depth 0.1 0.1 -Total Square Cm 0.01 0.01 -Date of Last Picture (Recall this 07/23/23 field) -Photo Taken Yes -Tunneling No -Undermining/Tunneling No -Circular Undermining No -Exudate Amt Medium -Exudate Type Serosanguineous -Wound Margin Distinct, Outline Attached -Granulation Amt Medium (34-66%) -Granulation Quality [place] -Slough/Fibrin Yes -Necrosis Amt Medium (34-66%) -Necrotic Tissue Type Adherent Slough -Structure Exposed N/A -Texture (Adrianna-wound Skin Appearance) Assessed, Excoriation, Localized Edema -Moisture (Adrianna-wound Skin Appearance) Assessed -Color (Adrianna-wound Skin Appearance) Assessed -Temperature (Adrianna-wound Skin No Abnormality Appearance) (Pt Warm) -Tenderness on Palpation (Adrianna-wound No Skin Appearance) -Ulcer Cleansing Wound Cleanser -Foul Odor after Cleansing No -Anesthetic Used 4% Lidocaine Solution Lower Limb Edema Present Yes Right Calf (cm) 59.4 55 Right Ankle (cm) 31 30 Left Calf (cm) 56.5 55 Left Ankle (cm) 29.5 28.5 WC - Nurse 2 - General Ulcer CM Notes Start: 07/23/23 09:03 Freq: Status: Active Protocol: Activity Type Activity Date Activity User E-sign Co-sign Detail Recorded Client Recorded Date Recorded By Document 07/23/23 09:32 [email or web address] 07/23/23 09:43 Document 07/30/23 09:52 [id number] 07/30/23 09:53 07/23/23 07/30/23 09:32 09:52 Wound Center Nurse 2 #5 RLE edema -Time 09:41 -Correct Patient Yes Yes -Correct Side, Site, Position Yes Yes Pain Scale: 0-10 Numeric Is Patient Pain Free? Yes Yes WC - Nurse 3 - General Ulcer D/C NN Start: 07/23/23 09:03 Freq: Status: Active Protocol: Activity Type Activity Date Activity User E-sign Co-sign Detail Recorded Client Recorded Date Recorded By Document 07/23/23 09:54 KW Desktop 07/23/23 09:54 KW Document 07/30/23 10:32 RB Desktop 07/30/23 10:32 RB 07/23/23 07/30/23 09:54 10:32 Wound Care Center Nurse 3 #5 RLE edema -Ulcer Cleansing Wound Cleanser BLE -Multi-Layered Wrap Application Unna Boot - Unna Boot - Bilateral ($) Bilateral ($) Treatment Response Procedure Tolerated Well Pain Scale: 0-10 Numeric Is Patient Pain Free? Yes Yes Teaching: Wound Center Control Swelling with Leg Elevation -Person Taught Patient -Teaching Method Discussion -Response to teaching Verbalize understanding WC - Visit Discharge Discharge Condition Stable Stable Ambulatory Status Ambulatory Ambulatory Transportation Private Auto Private Auto Medication Reconcilliation completed & No No provided to patient/care provider Clinical Summary of Care Provided Yes Yes Assessment/Plan Assessment/Plan (1) Debility: CODE(S): R53.81 - Other malaise (2) Osteoarthritis: CODE(S): M19.90 - Unspecified osteoarthritis, unspecified site QUALIFIERS: Osteoarthritis location: multiple joints Osteoarthritis type: primary Qualified Code(s): M15.9 - Polyosteoarthritis, unspecified (3) COPD (chronic obstructive pulmonary disease): CODE(S): J44.9 - Chronic obstructive pulmonary disease, unspecified QUALIFIERS: COPD type: unspecified COPD Qualified Code(s): J44.9 - Chronic obstructive pulmonary disease, unspecified (4) Edema of both lower extremities: CODE(S): R60.0 - Localized edema (5) Venous insufficiency: CODE(S): I87.2 - Venous insufficiency (chronic) (peripheral) (6) Chronic hypoxemic respiratory failure: CODE(S): J96.11 - Chronic respiratory failure with hypoxia (7) Pulmonary hypertension: CODE(S): I27.20 - Pulmonary hypertension, unspecified (8) Morbid obesity with BMI of 45.0-49.9, adult: CODE(S): E66.01 - Morbid (severe) obesity due to excess calories; Z68.42 - Body mass index [BMI] 45.0-49.9, adult (9) Lymphedema: CODE(S): I89.0 - Lymphedema, not elsewhere classified (10) Hypothyroidism: CODE(S): E03.9 - Hypothyroidism, unspecified QUALIFIERS: Hypothyroidism type: unspecified Qualified Code(s): E03.9 - Hypothyroidism, unspecified (11) Type 2 diabetes mellitus: CODE(S): E11.9 - Type 2 diabetes mellitus without complications QUALIFIERS: Diabetes mellitus termite exterminator helper insulin use: without senior care use Diabetes mellitus complication status: with other specified complication Qualified Code(s): E11.69 - Type 2 diabetes mellitus with other specified complication (12) DOLORES (obstructive sleep apnea): CODE(S): G47.33 - Obstructive sleep apnea (adult) (pediatric) (13) Venous ulcer of right lower extremity without varicose veins: CODE(S): I87.2 - Venous insufficiency (chronic) (peripheral); L97.919 - Non-pressure chronic ulcer of unspecified part of right lower leg with unspecified severity PLAN: Plan Evaluation and examination performed today in clinic as annotated above. At home wound-care instructions: Will continue using UNNA boots to bilateral LE. She tolerated them well. She was instructed to keep dressings clean and dry. Use a cast cover or sponge bath to avoid getting dressings wet. Off-loading: The patient was instructed to avoid pressure and friction on the affected areas. Reposition every 2 hours at minimum. Avoid prolonged standing and/or dangling of legs. When seated, feet should be elevated at chest level. Frequent ambulation is encouraged. Diet: Patient encouraged to increase protein intake while taking caution to avoid high carbohydrate and/or sugar intake. Encouraged weight loss. Labs/cultures/imaging: Venous testing done but awaiting results. Prealbumin 17.8. Advised addition of protein supplement. Encouraged her to schedule follow up appointment with her PCP to discuss incontinence and diuretic management. Will contact [facility] in [place] to assist her in determining steps needed to get her a CPAP mask to improve DOLORES and pulmonary HTN treatment compliance which is adding to her decompensated lymphedema. Follow-up: Return in 1 week for wound care follow up. Return sooner or report to the emergency room should symptoms worsen, or new symptoms arise. Note: [employer] speech recognition data center architect software was used to create portions of this document. Sound-alike and misspelled words, as well as other data center architect errors may be contained in the documentation.
[2023-08-06 08:59] VITALS: BP 161/64; PULSE 74; RESP 18; TEMP 36.2; BMI 49.8
--- NOTE | 2023-08-06 09:23 | PCM.WC.PN ---
History of Present Illness Date of Service: 08/06/23 Chief Complaint: RLE wounds, bilateral lower extremity swelling History of Wound: Liz is a pleasant 73 yo woman that presents to the wound center for bilateral lower extremity edema and blisters of her right lower leg with recent cellulitis. She was seen in the ER on 06/20/23 and diagnosed with increased edema and possible cellulitis. She was treated with Keflex and Bumetanide. Her edema has improved some but is still present and she continues to have pain and drainage and blisters of her right lower leg. She does have compression stockings but it is difficult for her to wear when her legs are more swollen and when they are painful. She tries to elevate her legs when she is sitting but is not always consistent with doing this. She has been wrapping her leg with gauze when it is seeping but otherwise has not been doing any regular dressings. Patient has been treated at the wound center in the past for similar wounds, most recently September 2022. She has also been seen in the vascular surgery clinic where she was evaluated her for BLE DVT and venous insufficiency. 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 GSV ablation has been considered if she continued to develop recurrence of wounds. Last venous study was 03/2022. Last A1C 01/2023 was 6.4%. Last TSH - 01/2022 Patient's medical history is also significant for CHF, COPD, T2DM, lymphedema. She has a CPAP but has not been using this due to needing a new mask. She states that a prescription was to be sent and she never received the mask. Her current mask has a hole in it. She is also on oxygen but yesterday the concentrator is not working and she needs to call the company to come and check the device. She reports chills but no fever. She has pain and burning in her right leg that is worse at night. Subjective Subjective Liz returns for evaluation and treatment of bilateral lymphedema and ulcers of R LE. She tolerated treatment with UNNA boots with improvement in edema and ulcers. Decreased pain. Objective Data Objective Data Vital Signs: Vital Signs Temp Pulse Resp BP O2 Del Method 97.2 F L 74 18 161/64 H Room Air 08/06/23 08:59 08/06/23 08:59 08/06/23 08:59 08/06/23 08:59 08/06/23 08:59 Oxygen Delivery Method Room Air Weight: 140.16 kg Body Mass Index (BMI) 49.8 Physical Exam Const alert, oriented x3 and no apparent distress General Appearance: cooperative and comfortable Nutritional Appearance: obese HEENT normocephalic and head/scalp atraumatic Lymph Lymphatic: lymphedema severe and pitting Resp normal respiratory effort Effort and Inspection: able to speak in complete sentences Cardio regular rate and regular rhythm Extremity General Extremity: edema bilateral lower extremity Details: severe (with skin changes associated with lymphedema, thickened nodular appearance from mid allen to ankle) Skin General Skin Exam: erythema, venous stasis and dermatitis Wounds: wounds noted Wound Narrative: as in clinical panel Psych mental status grossly normal, thought process normal, cooperative and affect normal Debridement Note Debridement Note Wound debrided: left lateral LE Laterality: Left Type of Debridement: Selective debridement Depth: Down to and including healthy tissue Percentage of wound debrided: 100 Instrument Used: - (gauze) Tissue Removed: devitalized tissue Severity: Limited To Skin Breakdown Amount of bleeding with debridement: None Bleeding Controlled with: Pressure Patient tolerated procedure: Patient tolerated procedure well Post-Debridement Measurements and Additional Note: Post-Debridement Measurements/Treatment - Nurse 1 - General Ulcer Assessment Start: 07/23/23 09:03 Freq: Status: Active Protocol: KELSEY Activity Type Activity Date Activity User E-sign Co-sign Detail Recorded Client Recorded Date Recorded By Document 07/23/23 09:03 KW Desktop 07/23/23 09:16 KW Document 07/30/23 09:43 RB Desktop 07/30/23 09:46 RB Document 08/06/23 08:59 KW Desktop 08/06/23 09:04 KW 07/23/23 07/30/23 08/06/23 09:03 09:43 08:59 - Today's Visit Information Type of service Initial Visit Follow-up Visit Follow-up Visit (Physician/POCKET OPERATOR (Physician/POCKET OPERATOR ) ) Arrival Mode Ambulatory Ambulatory Ambulatory Transfer Assistance None Accompanied by Patient Identification Verified (Name & Yes Yes Yes ) Patient Requires Transmission-Based No Precautions Height and Weight Height 5 ft 6 in Weight 140.16 kg Weight in Pounds 309.0 lbs Body Mass Index (BMI) 49.8 49.8 49.8 BMI Classification Obese Obese Obese BSA - Marie 2.41 Vital Signs Temperature (97.8 F-99.1 F) 98.9 F 97 F L 97.2 F L Temperature Source Temporal Temporal Temporal Pulse Rate (60-100) 86 80 74 Pulse Location Monitor Monitor Monitor Respiratory Rate (12-18) 18 18 18 Respiratory rate source Observation Observation Observation Oxygen Delivery Method Room Air Room Air Blood Pressure (90/60-120/80) 134/71 H 180/56 H 161/64 H Blood Pressure Mean (mm Hg) 92 97 96 Source Monitor Monitor Monitor Position Semi-Fowlers Semi-Fowlers Semi-Fowlers Blood Pressure Location Left Arm Left Arm Right Arm History Since Last Visit- (Skip if this is Patient's initial visit) Have you changed medications since your No No last visit? Any new allergies or adverse reactions No No Had a fall/change in ADL's that may No No increase risk of falls Signs or symptoms of abuse and/or No No neglect since last visit Have you been in the hospital since your No No last visit? Has dressing in place as prescribed Yes Yes Has compression in place as prescribed Yes Yes Has offloadiing in place as prescribed No N/A Experienced any changes in pain level or No No management Left Footwear Regular Shoe Regular Shoe Right Footwear Regular Shoe Regular Shoe Pain Scale: 0-10 Numeric Is Patient Pain Free? Yes Yes Yes Lower Extremity Assessment/ Foot Assessment/ Toe Nail Assessment Right -Hair Growth on Legs No -Hair Growth on Toes No -Thick Yes -Discolored Yes Left -Hair Growth on Legs No -Hair Growth on Toes No -Thick Yes -Discolored Yes Neuropathy Assessment Feet - Top Side and Bottom <Entered> (a) Communication Assessment Preferred language [place]ian Able to Read Yes Able to Write Yes Communication Tools None Caregiver Communication Skills No Impairment Impairment Right Hearing Abillity Normal Left Hearing Abillity Normal Visual Assistive Devices Glasses Teaching Assessment Preferences Verbal,Written, Demonstration Barriers to Learning None Readiness To Learn Excellent Willingness to Engage in Self Management High Activies Readiness to Engage in Self Management High Activities Anxiety Level Calm Cooperation Cooperative Perception Coherent Interest in Health Problem Asks Questions Education Importance Acknowledges Need Does Patient Smoke tobacco or other No substances Smoking Status Never smoker Is Patient Diabetic No Functional Assessment Recent Decline in Ability to Perform Denies Any Declines Assistive Device With Patient No Culture/Christianity/Mar[employer]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 Marine Service Station Attendant to contact place of advent No (a) 1 - + WC - Nurse 1 - General Ulcer Measurement Start: 07/23/23 09:03 Freq: Status: Active Protocol: Activity Type Activity Date Activity User E-sign Co-sign Detail Recorded Client Recorded Date Recorded By Document 07/23/23 09:03 KW Desktop 07/23/23 09:16 KW Document 07/30/23 09:43 RB Desktop 07/30/23 09:46 RB Document 08/06/23 08:59 KW Desktop 08/06/23 09:04 KW 07/23/23 07/30/23 08/06/23 09:03 09:43 08:59 Wound Center Nurse 1 #5 RLE edema -Current Size (cm) - Length 0.1 0.1 -Current Size (cm) - Width 0.1 0.1 -Current Size (cm) - Depth 0.1 0.1 -Total Square Cm 0.01 0.01 -Date of Last Picture (Recall this 07/23/23 field) -Photo Taken Yes -Tunneling No -Undermining/Tunneling No -Circular Undermining No -Exudate Amt Medium -Exudate Type Serosanguineous -Wound Margin Distinct, Outline Attached -Granulation Amt Medium (34-66%) -Granulation Quality [place] -Slough/Fibrin Yes -Necrosis Amt Medium (34-66%) -Necrotic Tissue Type Adherent Slough -Structure Exposed N/A -Texture (Adrianna-wound Skin Appearance) Assessed, Excoriation, Localized Edema -Moisture (Adrianna-wound Skin Appearance) Assessed -Color (Adrianna-wound Skin Appearance) Assessed -Temperature (Adrianna-wound Skin No Abnormality Appearance) (Pt Warm) -Tenderness on Palpation (Adrianna-wound No Skin Appearance) -Ulcer Cleansing Wound Cleanser -Foul Odor after Cleansing No -Anesthetic Used 4% Lidocaine Solution Lower Limb Edema Present Yes Right Calf (cm) 59.4 55 53 Right Ankle (cm) 31 30 28.8 Left Calf (cm) 56.5 55 59.1 Left Ankle (cm) 29.5 28.5 29.2 WC - Nurse 2 - General Ulcer CM Notes Start: 07/23/23 09:03 Freq: Status: Active Protocol: Activity Type Activity Date Activity User E-sign Co-sign Detail Recorded Client Recorded Date Recorded By Document 07/23/23 09:32 Desktop 07/23/23 09:43 Document 07/30/23 09:52 [id number] 07/30/23 09:53 Document 08/06/23 09:10 Desktop 08/06/23 09:16 GM 07/23/23 07/30/23 08/06/23 09:32 09:52 09:10 Wound Center Nurse 2 Left Lateral lower leg -Time 09:16 -Correct Patient Yes -Correct Side, Site, Position Yes -Correct Procedure Yes -Procedure Performed Yes -Type of Procedure Debridement -Clinical Debridement Epidermis / Dermis -Tissue Removed Epidermis -Post Debridement (cm) - Length 2.0 -Post Debridement (cm) - Width 2.5 -Post Debridement (cm) - Depth 0.1 -Total Square (Post) (cm) 5.00 -Area of Debridement (cm) - Length 2.0 -Area of Debridement (cm) - Width 2.5 -Total Square (Area) (cm) 5.00 -Tunneling No -Undermining/Tunneling No -Circular Undermining No -Wound/Ulcer Outcome Not Healed -Ulcer Cleansing Not Cleansed -Foul Odor after Cleansing No -Bioengineered Tissue No -Bleeding Controlled with Pressure -Treatment Response Procedure Tolerated Well -Debridement - Open, 1st 20sq cm Yes #5 RLE edema -Time 09:41 09:13 -Correct Patient Yes Yes Yes -Correct Side, Site, Position Yes Yes Yes Pain Scale: 0-10 Numeric Is Patient Pain Free? Yes Yes Yes WC - Nurse 3 - General Ulcer D/C NN Start: 07/23/23 09:03 Freq: Status: Active Protocol: Activity Type Activity Date Activity User E-sign Co-sign Detail Recorded Client Recorded Date Recorded By Document 07/23/23 09:54 KW Desktop 07/23/23 09:54 KW Document 07/30/23 10:32 RB Desktop 07/30/23 10:32 RB 07/23/23 07/30/23 09:54 10:32 Wound Care Center Nurse 3 #5 RLE edema -Ulcer Cleansing Wound Cleanser BLE -Multi-Layered Wrap Application Unna Boot - Unna Boot - Bilateral ($) Bilateral ($) Treatment Response Procedure Tolerated Well Pain Scale: 0-10 Numeric Is Patient Pain Free? Yes Yes Teaching: Wound Center Control Swelling with Leg Elevation -Person Taught Patient -Teaching Method Discussion -Response to teaching Verbalize understanding WC - Visit Discharge Discharge Condition Stable Stable Ambulatory Status Ambulatory Ambulatory Transportation Private Auto Private Auto Medication Reconcilliation completed & No No provided to patient/care provider Clinical Summary of Care Provided Yes Yes Assessment/Plan Assessment/Plan (1) Debility: CODE(S): R53.81 - Other malaise (2) Osteoarthritis: CODE(S): M19.90 - Unspecified osteoarthritis, unspecified site QUALIFIERS: Osteoarthritis location: multiple joints Osteoarthritis type: primary Qualified Code(s): M15.9 - Polyosteoarthritis, unspecified (3) COPD (chronic obstructive pulmonary disease): CODE(S): J44.9 - Chronic obstructive pulmonary disease, unspecified QUALIFIERS: COPD type: unspecified COPD Qualified Code(s): J44.9 - Chronic obstructive pulmonary disease, unspecified (4) Edema of both lower extremities: CODE(S): R60.0 - Localized edema (5) Venous insufficiency: CODE(S): I87.2 - Venous insufficiency (chronic) (peripheral) (6) Chronic hypoxemic respiratory failure: CODE(S): J96.11 - Chronic respiratory failure with hypoxia (7) Pulmonary hypertension: CODE(S): I27.20 - Pulmonary hypertension, unspecified (8) Morbid obesity with BMI of 45.0-49.9, adult: CODE(S): E66.01 - Morbid (severe) obesity due to excess calories; Z68.42 - Body mass index [BMI] 45.0-49.9, adult (9) Lymphedema: CODE(S): I89.0 - Lymphedema, not elsewhere classified (10) Hypothyroidism: CODE(S): E03.9 - Hypothyroidism, unspecified QUALIFIERS: Hypothyroidism type: unspecified Qualified Code(s): E03.9 - Hypothyroidism, unspecified (11) Type 2 diabetes mellitus: CODE(S): E11.9 - Type 2 diabetes mellitus without complications QUALIFIERS: Diabetes mellitus complication status: with other specified complication Diabetes mellitus exterminator termite insulin use: without exterminator termite use Qualified Code(s): E11.69 - Type 2 diabetes mellitus with other specified complication (12) DOLORES (obstructive sleep apnea): CODE(S): G47.33 - Obstructive sleep apnea (adult) (pediatric) (13) Venous ulcer of right lower extremity without varicose veins: CODE(S): I87.2 - Venous insufficiency (chronic) (peripheral); L97.919 - Non-pressure chronic ulcer of unspecified part of right lower leg with unspecified severity PLAN: Plan Evaluation and examination performed today in clinic as annotated above. At home wound-care instructions: Will continue using UNNA boots to bilateral LE. She tolerated them well. She was instructed to keep dressings clean and dry. Use a cast cover or sponge bath to avoid getting dressings wet. Compression: Liz has significant arthritis and is unable to don compression stockings on her own and has had several recurrences of ulcers and cellulitis over the last 18 months even with using graduated compression regularly. Due to her chronic lymphedema and recurrent ulcers it is medically necessary for her to undergo treatment with lymphedema pumps in order to prevent recurrent ulcers and cellulitis and prevent limb loss. She has failed conservative treatments with KATELYNN wraps and compression garments. She would be able to don lymphedema garments and operate the lymphedema pumps 3 times/day. Off-loading: The patient was instructed to avoid pressure and friction on the affected areas. Reposition every 2 hours at minimum. Avoid prolonged standing and/or dangling of legs. When seated, feet should be elevated at chest level. Frequent ambulation is encouraged. Diet: Patient encouraged to increase protein intake while taking caution to avoid high carbohydrate and/or sugar intake. Encouraged weight loss. Labs/cultures/imaging: Venous testing done but awaiting results. Prealbumin 17.8. Advised addition of protein supplement. Encouraged her to schedule follow up appointment with her PCP to discuss incontinence and diuretic management. Will contact [facility] in [place] to assist her in determining steps needed to get her a CPAP mask to improve DOLORES and pulmonary HTN treatment compliance which is adding to her decompensated lymphedema. Follow-up: Return in 1 week for wound care follow up. Return sooner or report to the emergency room should symptoms worsen, or new symptoms arise. Note: [employer] speech recognition director of undergraduate admissions software was used to create portions of this document. Sound-alike and misspelled words, as well as other director of undergraduate admissions errors may be contained in the documentation.
[2023-08-13 09:16] VITALS: BP 170/78; PULSE 68; RESP 18; TEMP 36.3; BMI 49.8
--- NOTE | 2023-08-13 13:20 | PCM.WC.PN ---
History of Present Illness Date of Service: 08/13/23 Chief Complaint: RLE wounds, bilateral lower extremity swelling History of Wound: Liz is a pleasant 73 yo woman that presents to the wound center for bilateral lower extremity edema and blisters of her right lower leg with recent cellulitis. She was seen in the ER on 06/20/23 and diagnosed with increased edema and possible cellulitis. She was treated with Keflex and Bumetanide. Her edema has improved some but is still present and she continues to have pain and drainage and blisters of her right lower leg. She does have compression stockings but it is difficult for her to wear when her legs are more swollen and when they are painful. She tries to elevate her legs when she is sitting but is not always consistent with doing this. She has been wrapping her leg with gauze when it is seeping but otherwise has not been doing any regular dressings. Patient has been treated at the wound center in the past for similar wounds, most recently September 2022. She has also been seen in the vascular surgery clinic where she was evaluated her for BLE DVT and venous insufficiency. 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 GSV ablation has been considered if she continued to develop recurrence of wounds. Last venous study was 03/2022. Last A1C 01/2023 was 6.4%. Last TSH - 01/2022 Patient's medical history is also significant for CHF, COPD, T2DM, lymphedema. She has a CPAP but has not been using this due to needing a new mask. She states that a prescription was to be sent and she never received the mask. Her current mask has a hole in it. She is also on oxygen but yesterday the concentrator is not working and she needs to call the company to come and check the device. She reports chills but no fever. She has pain and burning in her right leg that is worse at night. Subjective Subjective Liz returns for evaluation and treatment of bilateral lymphedema and ulcers of R LE. She tolerated treatment with UNNA boots with improvement in edema and ulcers are healed. Decreased pain. Objective Data Objective Data Vital Signs: Vital Signs Temp Pulse Resp BP O2 Del Method 97.3 F L 68 18 170/78 H Room Air 08/13/23 09:16 08/13/23 09:16 08/13/23 09:16 08/13/23 09:16 08/13/23 09:16 Oxygen Delivery Method Room Air Weight: 140.16 kg Body Mass Index (BMI) 49.8 Physical Exam Const alert, oriented x3 and no apparent distress General Appearance: cooperative and comfortable Nutritional Appearance: obese HEENT normocephalic and head/scalp atraumatic Lymph Lymphatic: lymphedema severe and pitting Resp normal respiratory effort Effort and Inspection: able to speak in complete sentences Cardio regular rate and regular rhythm Extremity General Extremity: edema bilateral lower extremity Details: severe (with skin changes associated with lymphedema, thickened nodular appearance from mid allen to ankle) Skin General Skin Exam: erythema, venous stasis and dermatitis Wounds: wounds noted Wound Narrative: as in clinical panel Psych mental status grossly normal, thought process normal, cooperative and affect normal Debridement Note Debridement Note No debridement was completed: No debridement was completed today Post-Debridement Measurements and Additional Note: Post-Debridement Measurements/Treatment WC - Nurse 1 - General Ulcer Assessment Start: 07/23/23 09:03 Freq: Status: Active Protocol: KELSEY Activity Type Activity Date Activity User E-sign Co-sign Detail Recorded Client Recorded Date Recorded By Document 07/23/23 09:03 KW Desktop 07/23/23 09:16 KW Document 07/30/23 09:43 RB Desktop 07/30/23 09:46 RB Document 08/06/23 08:59 KW Desktop 08/06/23 09:04 KW Document 08/13/23 09:16 KW Desktop 08/13/23 09:29 KW 07/23/23 07/30/23 08/06/23 09:03 09:43 08:59 - Today's Visit Information Type of service Initial Visit Follow-up Visit Follow-up Visit (Physician/NETWORK FIREWALL ENGINEER (Physician/NETWORK FIREWALL ENGINEER ) ) Arrival Mode Ambulatory Ambulatory Ambulatory Transfer Assistance None Accompanied by Patient Identification Verified (Name & Yes Yes Yes ) Patient Requires Transmission-Based No Precautions Height and Weight Height 5 ft 6 in Weight 140.16 kg Weight in Pounds 309.0 lbs Body Mass Index (BMI) 49.8 49.8 49.8 BMI Classification Obese Obese Obese BSA - Marie 2.41 Vital Signs Temperature (97.8 F-99.1 F) 98.9 F 97 F L 97.2 F L Temperature Source Temporal Temporal Temporal Pulse Rate (60-100) 86 80 74 Pulse Location Monitor Monitor Monitor Respiratory Rate (12-18) 18 18 18 Respiratory rate source Observation Observation Observation Oxygen Delivery Method Room Air Room Air Blood Pressure (90/60-120/80) 134/71 H 180/56 H 161/64 H Blood Pressure Mean (mm Hg) 92 97 96 Source Monitor Monitor Monitor Position Semi-Fowlers Semi-Fowlers Semi-Fowlers Blood Pressure Location Left Arm Left Arm Right Arm History Since Last Visit- (Skip if this is Patient's initial visit) Have you changed medications since your No No last visit? Any new allergies or adverse reactions No No Had a fall/change in ADL's that may No No increase risk of falls Signs or symptoms of abuse and/or No No neglect since last visit Have you been in the hospital since your No No last visit? Has dressing in place as prescribed Yes Yes Has compression in place as prescribed Yes Yes Has offloadiing in place as prescribed No N/A Experienced any changes in pain level or No No management Left Footwear Regular Shoe Regular Shoe Right Footwear Regular Shoe Regular Shoe Pain Scale: 0-10 Numeric Is Patient Pain Free? Yes Yes Yes Lower Extremity Assessment/ Foot Assessment/ Toe Nail Assessment Right -Hair Growth on Legs No -Hair Growth on Toes No -Thick Yes -Discolored Yes Left -Hair Growth on Legs No -Hair Growth on Toes No -Thick Yes -Discolored Yes Neuropathy Assessment Feet - Top Side and Bottom <Entered> (a) Communication Assessment Preferred language [place] Able to Read Yes Able to Write Yes Communication Tools None Caregiver Communication Skills No Impairment Impairment Right Hearing Abillity Normal Left Hearing Abillity Normal Visual Assistive Devices Glasses Teaching Assessment Preferences Verbal,Written, Demonstration Barriers to Learning None Readiness To Learn Excellent Willingness to Engage in Self Management High Activies Readiness to Engage in Self Management High Activities Anxiety Level Calm Cooperation Cooperative Perception Coherent Interest in Health Problem Asks Questions Education Importance Acknowledges Need Does Patient Smoke tobacco or other No substances Smoking Status Never smoker Is Patient Diabetic No Functional Assessment Recent Decline in Ability to Perform Denies Any Declines Assistive Device With Patient No Culture/Anglican/Thermostat Repairer Cultural/Anglican Needs that may affect No Treatment Plan Would you allow our hospital post doctoral fellow to No meet you for the purpose of spiritual/ emotional support? Thermostat Repairer to contact place of orthodox No 08/13/23 09:16 WC - Today's Visit Information Type of service Follow-up Visit (Physician/NETWORK FIREWALL ENGINEER ) Arrival Mode Transfer Assistance Accompanied by Patient Identification Verified (Name & Yes ) Patient Requires Transmission-Based Precautions Height and Weight Height Weight Weight in Pounds Body Mass Index (BMI) 49.8 BMI Classification Obese BSA - Marie Vital Signs Temperature (97.8 F-99.1 F) 97.3 F L Temperature Source Temporal Pulse Rate (60-100) 68 Pulse Location Monitor Respiratory Rate (12-18) 18 Respiratory rate source Observation Oxygen Delivery Method Room Air Blood Pressure (90/60-120/80) 170/78 H Blood Pressure Mean (mm Hg) 108 Source Monitor Position Sitting Blood Pressure Location Left Forearm History Since Last Visit- (Skip if this is Patient's initial visit) Have you changed medications since your No last visit? Any new allergies or adverse reactions No Had a fall/change in ADL's that may No increase risk of falls Signs or symptoms of abuse and/or No neglect since last visit Have you been in the hospital since your No last visit? Has dressing in place as prescribed Yes Has compression in place as prescribed Yes Has offloadiing in place as prescribed N/A Experienced any changes in pain level or No management Left Footwear Regular Shoe Right Footwear Regular Shoe Pain Scale: 0-10 Numeric Is Patient Pain Free? Yes Lower Extremity Assessment/ Foot Assessment/ Toe Nail Assessment Right -Hair Growth on Legs -Hair Growth on Toes -Thick -Discolored Left -Hair Growth on Legs -Hair Growth on Toes -Thick -Discolored Neuropathy Assessment Feet - Top Side and Bottom Communication Assessment Preferred language Able to Read Able to Write Communication Tools Caregiver Communication Skills Impairment Right Hearing Abillity Left Hearing Abillity Visual Assistive Devices Teaching Assessment Preferences Barriers to Learning Readiness To Learn Willingness to Engage in Self Management Activies Readiness to Engage in Self Management Activities Anxiety Level Cooperation Perception Interest in Health Problem Education Importance Does Patient Smoke tobacco or other substances Smoking Status Is Patient Diabetic Functional Assessment Recent Decline in Ability to Perform Assistive Device With Patient Culture/Anglican/Thermostat Repairer Cultural/Anglican Needs that may affect Treatment Plan Would you allow our hospital post doctoral fellow to meet you for the purpose of spiritual/ emotional support? Thermostat Repairer to contact place of orthodox (a) 1 - + WC - Nurse 1 - General Ulcer Measurement Start: 07/23/23 09:03 Freq: Status: Active Protocol: Activity Type Activity Date Activity User E-sign Co-sign Detail Recorded Client Recorded Date Recorded By Document 07/23/23 09:03 KW Desktop 07/23/23 09:16 KW Document 07/30/23 09:43 RB Desktop 07/30/23 09:46 RB Document 08/06/23 08:59 KW Desktop 08/06/23 09:04 KW Document 08/13/23 09:16 KW Desktop 08/13/23 09:29 KW 07/23/23 07/30/23 08/06/23 09:03 09:43 08:59 Wound Center Nurse 1 Left Lateral lower leg -Current Size (cm) - Length -Current Size (cm) - Width -Current Size (cm) - Depth -Total Square Cm -Ulcer Cleansing #5 RLE edema -Current Size (cm) - Length 0.1 0.1 -Current Size (cm) - Width 0.1 0.1 -Current Size (cm) - Depth 0.1 0.1 -Total Square Cm 0.01 0.01 -Date of Last Picture (Recall this 07/23/23 field) -Photo Taken Yes -Tunneling No -Undermining/Tunneling No -Circular Undermining No -Exudate Amt Medium -Exudate Type Serosanguineous -Wound Margin Distinct, Outline Attached -Granulation Amt Medium (34-66%) -Granulation Quality [place] -Slough/Fibrin Yes -Necrosis Amt Medium (34-66%) -Necrotic Tissue Type Adherent Slough -Structure Exposed N/A -Texture (Adrianna-wound Skin Appearance) Assessed, Excoriation, Localized Edema -Moisture (Adrianna-wound Skin Appearance) Assessed -Color (Adrianna-wound Skin Appearance) Assessed -Temperature (Adrianna-wound Skin No Abnormality Appearance) (Pt Warm) -Tenderness on Palpation (Adrianna-wound No Skin Appearance) -Ulcer Cleansing Wound Cleanser -Foul Odor after Cleansing No -Anesthetic Used 4% Lidocaine Solution Lower Limb Edema Present Yes Right Calf (cm) 59.4 55 53 Right Ankle (cm) 31 30 28.8 Left Calf (cm) 56.5 55 59.1 Left Ankle (cm) 29.5 28.5 29.2 08/13/23 09:16 Wound Center Nurse 1 Left Lateral lower leg -Current Size (cm) - Length 0.1 -Current Size (cm) - Width 0.1 -Current Size (cm) - Depth 0.1 -Total Square Cm 0.01 -Ulcer Cleansing Soap and Water #5 RLE edema -Current Size (cm) - Length 0.1 -Current Size (cm) - Width 0.1 -Current Size (cm) - Depth 0.1 -Total Square Cm 0.01 -Date of Last Picture (Recall this field) -Photo Taken -Tunneling -Undermining/Tunneling -Circular Undermining -Exudate Amt -Exudate Type -Wound Margin -Granulation Amt -Granulation Quality -Slough/Fibrin -Necrosis Amt -Necrotic Tissue Type -Structure Exposed -Texture (Adrianna-wound Skin Appearance) -Moisture (Adrianna-wound Skin Appearance) -Color (Adrianna-wound Skin Appearance) -Temperature (Adrianna-wound Skin Appearance) -Tenderness on Palpation (Adrianna-wound Skin Appearance) -Ulcer Cleansing Soap and Water -Foul Odor after Cleansing -Anesthetic Used Lower Limb Edema Present Right Calf (cm) 52 Right Ankle (cm) 30.1 Left Calf (cm) 57 Left Ankle (cm) 30 - Nurse 2 - General Ulcer CM Notes Start: 07/23/23 09:03 Freq: Status: Active Protocol: Activity Type Activity Date Activity User E-sign Co-sign Detail Recorded Client Recorded Date Recorded By Document 07/23/23 09:32 [email or web address] Desktop 07/23/23 09:43 Document 07/30/23 09:52 [id number] 07/30/23 09:53 Document 08/06/23 09:10 [email or web address] Desktop 08/06/23 09:16 Document 08/13/23 09:43 Desktop 08/13/23 09:45 07/23/23 07/30/23 08/06/23 09:32 09:52 09:10 Wound Center Nurse 2 Left Lateral lower leg -Time 09:16 -Correct Patient Yes -Correct Side, Site, Position Yes -Correct Procedure Yes -Procedure Performed Yes -Type of Procedure Debridement -Clinical Debridement Epidermis / Dermis -Tissue Removed Epidermis -Post Debridement (cm) - Length 2.0 -Post Debridement (cm) - Width 2.5 -Post Debridement (cm) - Depth 0.1 -Total Square (Post) (cm) 5.00 -Area of Debridement (cm) - Length 2.0 -Area of Debridement (cm) - Width 2.5 -Total Square (Area) (cm) 5.00 -Tunneling No -Undermining/Tunneling No -Circular Undermining No -Wound/Ulcer Outcome Not Healed -Ulcer Cleansing Not Cleansed -Foul Odor after Cleansing No -Bioengineered Tissue No -Bleeding Controlled with Pressure -Treatment Response Procedure Tolerated Well -Debridement - Open, 1st 20sq cm Yes #5 RLE edema -Time 09:41 09:13 -Correct Patient Yes Yes Yes -Correct Side, Site, Position Yes Yes Yes Pain Scale: 0-10 Numeric Is Patient Pain Free? Yes Yes Yes 08/13/23 09:43 Wound Center Nurse 2 Left Lateral lower leg -Time 09:43 -Correct Patient Yes -Correct Side, Site, Position Yes -Correct Procedure -Procedure Performed -Type of Procedure -Clinical Debridement -Tissue Removed -Post Debridement (cm) - Length -Post Debridement (cm) - Width -Post Debridement (cm) - Depth -Total Square (Post) (cm) -Area of Debridement (cm) - Length -Area of Debridement (cm) - Width -Total Square (Area) (cm) -Tunneling -Undermining/Tunneling -Circular Undermining -Wound/Ulcer Outcome -Ulcer Cleansing -Foul Odor after Cleansing -Bioengineered Tissue -Bleeding Controlled with -Treatment Response -Debridement - Open, 1st 20sq cm #5 RLE edema -Time -Correct Patient -Correct Side, Site, Position Pain Scale: 0-10 Numeric Is Patient Pain Free? Yes - Nurse 3 - General Ulcer D/C NN Start: 07/23/23 09:03 Freq: Status: Active Protocol: Activity Type Activity Date Activity User E-sign Co-sign Detail Recorded Client Recorded Date Recorded By Document 07/23/23 09:54 KW Desktop 07/23/23 09:54 KW Document 07/30/23 10:32 RB Desktop 07/30/23 10:32 RB Document 08/06/23 09:42 RB Desktop 08/06/23 09:43 RB Document 08/13/23 10:02 KW Desktop 08/13/23 10:02 KW 07/23/23 07/30/23 08/06/23 09:54 10:32 09:42 Wound Care Center Nurse 3 Left Lateral lower leg -Ulcer Cleansing Wound Cleanser -Primary Dressing Applied Promogran Dyana Matter -Other Dressing abd -Promogran Dyana Matter 1 #5 RLE edema -Ulcer Cleansing Wound Cleanser BLE -Multi-Layered Wrap Application Unna Boot - Unna Boot - Unna Boot - Bilateral ($) Bilateral ($) Bilateral ($) Treatment Response Procedure Procedure Tolerated Well Tolerated Well Pain Scale: 0-10 Numeric Is Patient Pain Free? Yes Yes Yes Teaching: Wound Center Control Swelling with Leg Elevation -Person Taught Patient -Teaching Method Discussion -Response to teaching Verbalize understanding WC - Visit Discharge Discharge Condition Stable Stable Stable Ambulatory Status Ambulatory Ambulatory Ambulatory Transportation Private Auto Private Auto Private Auto Medication Reconcilliation completed & No No No provided to patient/care provider Clinical Summary of Care Provided Yes Yes Yes 08/13/23 10:02 Wound Care Center Nurse 3 Left Lateral lower leg -Ulcer Cleansing -Primary Dressing Applied -Other Dressing -Promogran Dyana Matter #5 RLE edema -Ulcer Cleansing BLE -Multi-Layered Wrap Application Unna Boot - Bilateral ($) Treatment Response Pain Scale: 0-10 Numeric Is Patient Pain Free? Yes Teaching: Wound Center Control Swelling with Leg Elevation -Person Taught -Teaching Method -Response to teaching WC - Visit Discharge Discharge Condition Stable Ambulatory Status Ambulatory Transportation Private Auto Medication Reconcilliation completed & No provided to patient/care provider Clinical Summary of Care Provided Yes Assessment/Plan Assessment/Plan (1) Debility: CODE(S): R53.81 - Other malaise (2) Osteoarthritis: CODE(S): M19.90 - Unspecified osteoarthritis, unspecified site QUALIFIERS: Osteoarthritis location: multiple joints Osteoarthritis type: primary Qualified Code(s): M15.9 - Polyosteoarthritis, unspecified (3) COPD (chronic obstructive pulmonary disease): CODE(S): J44.9 - Chronic obstructive pulmonary disease, unspecified QUALIFIERS: COPD type: unspecified COPD Qualified Code(s): J44.9 - Chronic obstructive pulmonary disease, unspecified (4) Edema of both lower extremities: CODE(S): R60.0 - Localized edema (5) Venous insufficiency: CODE(S): I87.2 - Venous insufficiency (chronic) (peripheral) (6) Chronic hypoxemic respiratory failure: CODE(S): J96.11 - Chronic respiratory failure with hypoxia (7) Pulmonary hypertension: CODE(S): I27.20 - Pulmonary hypertension, unspecified (8) Morbid obesity with BMI of 45.0-49.9, adult: CODE(S): E66.01 - Morbid (severe) obesity due to excess calories; Z68.42 - Body mass index [BMI] 45.0-49.9, adult (9) Lymphedema: CODE(S): I89.0 - Lymphedema, not elsewhere classified (10) Hypothyroidism: CODE(S): E03.9 - Hypothyroidism, unspecified QUALIFIERS: Hypothyroidism type: unspecified Qualified Code(s): E03.9 - Hypothyroidism, unspecified (11) Type 2 diabetes mellitus: CODE(S): E11.9 - Type 2 diabetes mellitus without complications QUALIFIERS: Diabetes mellitus emt intermediate insulin use: without emt intermediate use Diabetes mellitus complication status: with other specified complication Qualified Code(s): E11.69 - Type 2 diabetes mellitus with other specified complication (12) DOLORES (obstructive sleep apnea): CODE(S): G47.33 - Obstructive sleep apnea (adult) (pediatric) (13) Venous ulcer of right lower extremity without varicose veins: CODE(S): I87.2 - Venous insufficiency (chronic) (peripheral); L97.919 - Non-pressure chronic ulcer of unspecified part of right lower leg with unspecified severity PLAN: Plan Evaluation and examination performed today in clinic as annotated above. At home wound-care instructions: Will continue using UNNA boots to bilateral LE. She tolerated them well. She was instructed to keep dressings clean and dry. Use a cast cover or sponge bath to avoid getting dressings wet. Compression: Liz has significant arthritis and is unable to don compression stockings on her own and has had several recurrences of ulcers and cellulitis over the last 18 months even with using graduated compression regularly. Due to her chronic lymphedema and recurrent ulcers it is medically necessary for her to undergo treatment with lymphedema pumps in order to prevent recurrent ulcers and cellulitis and prevent limb loss. She has failed conservative treatments with KATELYNN wraps and compression garments. She would be able to don lymphedema garments and operate the lymphedema pumps 3 times/day. Off-loading: The patient was instructed to avoid pressure and friction on the affected areas. Reposition every 2 hours at minimum. Avoid prolonged standing and/or dangling of legs. When seated, feet should be elevated at chest level. Frequent ambulation is encouraged. Diet: Patient encouraged to increase protein intake while taking caution to avoid high carbohydrate and/or sugar intake. Encouraged weight loss. 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 Prealbumin 17.8. Advised addition of protein supplement. She is scheduled for vascular referral for 09/01/23. Encouraged her to schedule follow up appointment with her PCP to discuss incontinence and diuretic management. Will contact [facility] in [place] to assist her in determining steps needed to get her a CPAP mask to improve DOLORES and pulmonary HTN treatment compliance which is adding to her decompensated lymphedema. Follow-up: Return in 1 week for wound care follow up. Return sooner or report to the emergency room should symptoms worsen, or new symptoms arise. Note: [employer] speech recognition driller and reamer software was used to create portions of this document. Sound-alike and misspelled words, as well as other driller and reamer errors may be contained in the documentation.
== END 2023-08-19 23:59 | disposition home or self-care (01) ==
LOC: WC 09:15
PROVIDERS: PCP Internal Medicine; Referring Provider Internal Medicine; Visit Provider Family Medicine
DX: E11.622 Type 2 diabetes mellitus with other skin ulcer (principal); L97.911 Non-pressure chronic ulcer of unspecified part of right lower leg limited to breakdown of skin; J44.9 Chronic obstructive pulmonary disease, unspecified; I11.0 Hypertensive heart disease with heart failure; I27.20 Pulmonary hypertension, unspecified; I50.9 Heart failure, unspecified; E11.40 Type 2 diabetes mellitus with diabetic neuropathy, unspecified; J96.11 Chronic respiratory failure with hypoxia; E66.01 Morbid (severe) obesity due to excess calories; Z68.42 Body mass index [BMI] 45.0-49.9, adult; I89.0 Lymphedema, not elsewhere classified; S80.821A Blister (nonthermal), right lower leg, initial encounter; R60.0 Localized edema; I87.2 Venous insufficiency (chronic) (peripheral); M79.661 Pain in right lower leg; E78.5 Hyperlipidemia, unspecified; M15.9 Polyosteoarthritis, unspecified; M79.605 Pain in left leg; E03.9 Hypothyroidism, unspecified; G47.33 Obstructive sleep apnea (adult) (pediatric); R53.81 Other malaise; Z79.51 Long term (current) use of inhaled steroids; Z87.891 Personal history of nicotine dependence; Z99.81 Dependence on supplemental oxygen
CPT/HCPCS: 29580; 36415; 84134; 84439; 84443; 84481; 93970; 97597

== ENCOUNTER 2023-09-10 09:00 | Outpatient (RCR) | payer MEDICARE, MEDICAID, SELFPAY ==
[2023-08-20 00:22] VITALS: BP 170/78; PULSE 68; RESP 18; TEMP 36.3; BMI 49.8
[2023-08-20 08:33] VITALS: BP 174/68; PULSE 87; RESP 18; TEMP 36.1; BMI 49.8
--- NOTE | 2023-08-20 13:12 | PCM.WC.PN ---
History of Present Illness Date of Service: 08/20/23 Chief Complaint: RLE wounds, bilateral lower extremity swelling History of Wound: Liz is a pleasant 73 yo woman that presents to the wound center for bilateral lower extremity edema and blisters of her right lower leg with recent cellulitis. She was seen in the ER on 06/20/23 and diagnosed with increased edema and possible cellulitis. She was treated with Keflex and Bumetanide. Her edema has improved some but is still present and she continues to have pain and drainage and blisters of her right lower leg. She does have compression stockings but it is difficult for her to wear when her legs are more swollen and when they are painful. She tries to elevate her legs when she is sitting but is not always consistent with doing this. She has been wrapping her leg with gauze when it is seeping but otherwise has not been doing any regular dressings. Patient has been treated at the wound center in the past for similar wounds, most recently September 2022. She has also been seen in the vascular surgery clinic where she was evaluated her for BLE DVT and venous insufficiency. 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 GSV ablation has been considered if she continued to develop recurrence of wounds. Last venous study was 03/2022. Last A1C 01/2023 was 6.4%. Last TSH - 01/2022 Patient's medical history is also significant for CHF, COPD, T2DM, lymphedema. She has a CPAP but has not been using this due to needing a new mask. She states that a prescription was to be sent and she never received the mask. Her current mask has a hole in it. She is also on oxygen but yesterday the concentrator is not working and she needs to call the company to come and check the device. She reports chills but no fever. She has pain and burning in her right leg that is worse at night. Subjective Subjective Liz returns for evaluation and treatment of bilateral lymphedema and ulcers of R LE. She tolerated treatment with UNNA boots with improvement in edema and ulcers are healed. Decreased pain. Objective Data Objective Data Vital Signs: Vital Signs Temp Pulse Resp BP 97 F L 87 18 174/68 H 08/20/23 08:33 08/20/23 08:33 08/20/23 08:33 08/20/23 08:33 Weight: 140.16 kg Body Mass Index (BMI) 49.8 Physical Exam Const alert, oriented x3 and no apparent distress General Appearance: cooperative and comfortable Nutritional Appearance: obese HEENT normocephalic and head/scalp atraumatic Lymph Lymphatic: lymphedema severe and pitting Resp normal respiratory effort Effort and Inspection: able to speak in complete sentences Cardio regular rate and regular rhythm Extremity General Extremity: edema bilateral lower extremity Details: severe (with skin changes associated with lymphedema, thickened nodular appearance from mid allen to ankle) Skin General Skin Exam: erythema, venous stasis and dermatitis Wounds: wounds noted Wound Narrative: as in clinical panel Psych mental status grossly normal, thought process normal, cooperative and affect normal Debridement Note Debridement Note No debridement was completed: No debridement was completed today Post-Debridement Measurements and Additional Note: Post-Debridement Measurements/Treatment - Nurse 1 - General Ulcer Assessment Start: 08/20/23 08:33 Freq: Status: Active Protocol: [email or web address] Activity Type Activity Date Activity User E-sign Co-sign Detail Recorded Client Recorded Date Recorded By Document 08/20/23 08:33 Desktop 08/20/23 08:44 RB 08/20/23 08:33 - Today's Visit Information Type of service Follow-up Visit (Physician/SECOND HELPER ) Arrival Mode Ambulatory Transfer Assistance None Patient Identification Verified (Name & Yes ) Patient Requires Transmission-Based No Precautions Height and Weight Body Mass Index (BMI) 49.8 BMI Classification Obese Vital Signs Temperature (97.8 F-99.1 F) 97 F L Temperature Source Temporal Pulse Rate (60-100) 87 Pulse Location Monitor Respiratory Rate (12-18) 18 Respiratory rate source Observation Blood Pressure (90/60-120/80) 174/68 H Blood Pressure Mean (mm Hg) 103 Source Monitor Position Semi-Fowlers Blood Pressure Location Left Arm History Since Last Visit- (Skip if this is Patient's initial visit) Have you changed medications since your No last visit? Any new allergies or adverse reactions No Had a fall/change in ADL's that may No increase risk of falls Signs or symptoms of abuse and/or No neglect since last visit Have you been in the hospital since your No last visit? Has dressing in place as prescribed Yes Has compression in place as prescribed Yes Has offloadiing in place as prescribed No Experienced any changes in pain level or No management Pain Scale: 0-10 Numeric Is Patient Pain Free? Yes WC - Nurse 1 - General Ulcer Measurement Start: 08/20/23 08:33 Freq: Status: Active Protocol: Activity Type Activity Date Activity User E-sign Co-sign Detail Recorded Client Recorded Date Recorded By Document 08/20/23 08:33 RB Desktop 08/20/23 08:44 RB 08/20/23 08:33 Wound Center Nurse 1 Lower Limb Edema Present Yes Right Calf (cm) 58 Right Ankle (cm) 29.2 Left Calf (cm) 59 Left Ankle (cm) 28.5 WC - Nurse 3 - General Ulcer D/C NN Start: 08/20/23 08:33 Freq: Status: Active Protocol: Activity Type Activity Date Activity User E-sign Co-sign Detail Recorded Client Recorded Date Recorded By Document 08/20/23 09:32 MT Desktop 08/20/23 09:34 MT 08/20/23 09:32 Wound Care Center Nurse 3 Right -Multi-Layered Wrap Application Unna Boot - Right ($) Left -Multi-Layered Wrap Application Unna Boot - Left ($) Pain Scale: 0-10 Numeric Is Patient Pain Free? Yes Assessment/Plan Assessment/Plan (1) Debility: CODE(S): R53.81 - Other malaise (2) Osteoarthritis: CODE(S): M19.90 - Unspecified osteoarthritis, unspecified site QUALIFIERS: Osteoarthritis location: multiple joints Osteoarthritis type: primary Qualified Code(s): M15.9 - Polyosteoarthritis, unspecified (3) COPD (chronic obstructive pulmonary disease): CODE(S): J44.9 - Chronic obstructive pulmonary disease, unspecified QUALIFIERS: COPD type: unspecified COPD Qualified Code(s): J44.9 - Chronic obstructive pulmonary disease, unspecified (4) Edema of both lower extremities: CODE(S): R60.0 - Localized edema (5) Venous insufficiency: CODE(S): I87.2 - Venous insufficiency (chronic) (peripheral) (6) Chronic hypoxemic respiratory failure: CODE(S): J96.11 - Chronic respiratory failure with hypoxia (7) Pulmonary hypertension: CODE(S): I27.20 - Pulmonary hypertension, unspecified (8) Morbid obesity with BMI of 45.0-49.9, adult: CODE(S): E66.01 - Morbid (severe) obesity due to excess calories; Z68.42 - Body mass index [BMI] 45.0-49.9, adult (9) Lymphedema: CODE(S): I89.0 - Lymphedema, not elsewhere classified (10) Hypothyroidism: CODE(S): E03.9 - Hypothyroidism, unspecified QUALIFIERS: Hypothyroidism type: unspecified Qualified Code(s): E03.9 - Hypothyroidism, unspecified (11) Type 2 diabetes mellitus: CODE(S): E11.9 - Type 2 diabetes mellitus without complications QUALIFIERS: Diabetes mellitus ad terminal makeup operator insulin use: without ad terminal makeup operator use Diabetes mellitus complication status: with other specified complication Qualified Code(s): E11.69 - Type 2 diabetes mellitus with other specified complication (12) DOLORES (obstructive sleep apnea): CODE(S): G47.33 - Obstructive sleep apnea (adult) (pediatric) (13) Venous ulcer of right lower extremity without varicose veins: CODE(S): I87.2 - Venous insufficiency (chronic) (peripheral); L97.919 - Non-pressure chronic ulcer of unspecified part of right lower leg with unspecified severity PLAN: Plan Evaluation and examination performed today in clinic as annotated above. At home wound-care instructions: Will continue using UNNA boots to bilateral LE. She tolerated them well. She was instructed to keep dressings clean and dry. Use a cast cover or sponge bath to avoid getting dressings wet. Compression: Liz has significant arthritis and is unable to don compression stockings on her own and has had several recurrences of ulcers and cellulitis over the last 18 months even with using graduated compression regularly. Due to her chronic lymphedema and recurrent ulcers it is medically necessary for her to undergo treatment with lymphedema pumps in order to prevent recurrent ulcers and cellulitis and prevent limb loss. She has failed conservative treatments with KATELYNN wraps and compression garments. She would be able to don lymphedema garments and operate the lymphedema pumps 3 times/day. She is scheduled to receive pumps on Wednesday08/24/23. Off-loading: The patient was instructed to avoid pressure and friction on the affected areas. Reposition every 2 hours at minimum. Avoid prolonged standing and/or dangling of legs. When seated, feet should be elevated at chest level. Frequent ambulation is encouraged. Diet: Patient encouraged to increase protein intake while taking caution to avoid high carbohydrate and/or sugar intake. Encouraged weight loss. 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 Prealbumin 17.8. Advised addition of protein supplement. She is scheduled for vascular referral for 09/01/23. Encouraged her to schedule follow up appointment with her PCP to discuss incontinence and diuretic management. Will contact [facility] in [place] to assist her in determining steps needed to get her a CPAP mask to improve DOLORES and pulmonary HTN treatment compliance which is adding to her decompensated lymphedema. Follow-up: Return in 1 week for wound care follow up. Return sooner or report to the emergency room should symptoms worsen, or new symptoms arise. Note: [employer] speech recognition grade and center marker software was used to create portions of this document. Sound-alike and misspelled words, as well as other grade and center marker errors may be contained in the documentation.
[2023-08-27 09:45] VITALS: BP 154/71; PULSE 75; RESP 18; TEMP 36.2; BMI 49.8
[2023-09-03 09:06] VITALS: BP 185/75; PULSE 93; RESP 18; TEMP 35.7; BMI 49.8
--- NOTE | 2023-09-03 14:30 | PCM.WC.PN ---
History of Present Illness Date of Service: 09/03/23 Chief Complaint: RLE wounds, bilateral lower extremity swelling History of Wound: Liz is a pleasant 73 yo woman that presents to the wound center for bilateral lower extremity edema and blisters of her right lower leg with recent cellulitis. She was seen in the ER on 06/20/23 and diagnosed with increased edema and possible cellulitis. She was treated with Keflex and Bumetanide. Her edema has improved some but is still present and she continues to have pain and drainage and blisters of her right lower leg. She does have compression stockings but it is difficult for her to wear when her legs are more swollen and when they are painful. She tries to elevate her legs when she is sitting but is not always consistent with doing this. She has been wrapping her leg with gauze when it is seeping but otherwise has not been doing any regular dressings. Patient has been treated at the wound center in the past for similar wounds, most recently September 2022. She has also been seen in the vascular surgery clinic where she was evaluated her for BLE DVT and venous insufficiency. 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 GSV ablation has been considered if she continued to develop recurrence of wounds. Last venous study was 03/2022. Last A1C 01/2023 was 6.4%. Last TSH - 01/2022 Patient's medical history is also significant for CHF, COPD, T2DM, lymphedema. She has a CPAP but has not been using this due to needing a new mask. She states that a prescription was to be sent and she never received the mask. Her current mask has a hole in it. She is also on oxygen but yesterday the concentrator is not working and she needs to call the company to come and check the device. She has pain and burning in her right leg that is worse at night. Subjective Subjective Liz returns for evaluation and treatment of bilateral lymphedema and ulcers of R LE. She tolerated treatment with UNNA boots with improvement in edema and ulcers are healed. Decreased pain. She saw vascular surgery and they are planning on a procedure to her right lower leg for venous insufficiency. She has not received pumps yet but the company was out to demonstrate and measure her for lymphedema pumps. Objective Data Objective Data Vital Signs: Vital Signs Temp Pulse Resp BP O2 Del Method 96.2 F L 93 18 185/75 H Room Air 09/03/23 09:06 09/03/23 09:06 09/03/23 09:06 09/03/23 09:06 09/03/23 09:06 Oxygen Delivery Method Room Air Weight: 140.16 kg Body Mass Index (BMI) 49.8 Physical Exam Const alert, oriented x3 and no apparent distress General Appearance: cooperative and comfortable Nutritional Appearance: obese HEENT normocephalic and head/scalp atraumatic Lymph Lymphatic: lymphedema severe and pitting Lymphatic Narrative: bilateral lower legs with nodular appearance and skin thickening and hyperkeratinization from ankles to knees typical of chronic lymphedema Resp normal respiratory effort Effort and Inspection: able to speak in complete sentences Cardio regular rate and regular rhythm Extremity General Extremity: edema bilateral lower extremity Details: severe (with skin changes associated with lymphedema, thickened nodular appearance from mid allen to ankle) Skin General Skin Exam: erythema, venous stasis and dermatitis Wounds: wounds noted Wound Narrative: as in clinical panel Psych mental status grossly normal, thought process normal, cooperative and affect normal Debridement Note Debridement Note No debridement was completed: No debridement was completed today Post-Debridement Measurements and Additional Note: Post-Debridement Measurements/Treatment - Nurse 1 - General Ulcer Assessment Start: 08/20/23 08:33 Freq: Status: Active Protocol: KELSEY Activity Type Activity Date Activity User E-sign Co-sign Detail Recorded Client Recorded Date Recorded By Document 08/20/23 08:33 RB Desktop 08/20/23 08:44 RB Document 08/27/23 09:45 RB Foldeesktop 08/27/23 09:48 RB Document 09/03/23 09:06 KW Desktop 09/03/23 09:12 KW 08/20/23 08/27/23 09/03/23 08:33 09:45 09:06 - Today's Visit Information Type of service Follow-up Visit Follow-up Visit Follow-up Visit (Physician/PHOTO ENGRAVER (Physician/PHOTO ENGRAVER (Physician/PHOTO ENGRAVER ) ) ) Arrival Mode Ambulatory Ambulatory Ambulatory Transfer Assistance None None Patient Identification Verified (Name & Yes Yes Yes ) Patient Requires Transmission-Based No No Precautions Height and Weight Body Mass Index (BMI) 49.8 49.8 49.8 BMI Classification Obese Obese Obese Vital Signs Temperature (97.8 F-99.1 F) 97 F L 97.1 F L 96.2 F L Temperature Source Temporal Temporal Temporal Pulse Rate (60-100) 87 75 93 Pulse Location Monitor Monitor Monitor Respiratory Rate (12-18) 18 18 18 Respiratory rate source Observation Observation Observation Oxygen Delivery Method Room Air Blood Pressure (90/60-120/80) 174/68 H 154/71 H 185/75 H Blood Pressure Mean (mm Hg) 103 98 111 Source Monitor Monitor Monitor Position Semi-Fowlers Semi-Fowlers Semi-Fowlers Blood Pressure Location Left Arm Left Arm Left Arm History Since Last Visit- (Skip if this is Patient's initial visit) Have you changed medications since your No No No last visit? Any new allergies or adverse reactions No No No Had a fall/change in ADL's that may No No No increase risk of falls Signs or symptoms of abuse and/or No No No neglect since last visit Have you been in the hospital since your No No No last visit? Has dressing in place as prescribed Yes Yes Yes Has compression in place as prescribed Yes Yes No Has offloadiing in place as prescribed No No N/A Experienced any changes in pain level or No No No management Left Footwear Regular Shoe Right Footwear Regular Shoe Pain Scale: 0-10 Numeric Is Patient Pain Free? Yes Yes Yes WC - Nurse 1 - General Ulcer Measurement Start: 08/20/23 08:33 Freq: Status: Active Protocol: Activity Type Activity Date Activity User E-sign Co-sign Detail Recorded Client Recorded Date Recorded By Document 08/20/23 08:33 RB Desktop 08/20/23 08:44 RB Document 08/27/23 09:45 RB Desktop 08/27/23 09:48 RB Document 09/03/23 09:06 KW Desktop 09/03/23 09:12 KW 08/20/23 08/27/23 09/03/23 08:33 09:45 09:06 Wound Center Nurse 1 Lower Limb Edema Present Yes Yes Right Calf (cm) 58 60.5 57.5 Right Ankle (cm) 29.2 29.5 30.5 Left Calf (cm) 59 58.2 57 Left Ankle (cm) 28.5 29 30.5 WC - Nurse 2 - General Ulcer CM Notes Start: 08/20/23 08:33 Freq: Status: Active Protocol: Activity Type Activity Date Activity User E-sign Co-sign Detail Recorded Client Recorded Date Recorded By Document 09/03/23 09:25 GM Desktop 09/03/23 09:32 GM 09/03/23 09:25 Pain Scale: 0-10 Numeric Is Patient Pain Free? Yes - Nurse 3 - General Ulcer D/C NN Start: 08/20/23 08:33 Freq: Status: Active Protocol: Activity Type Activity Date Activity User E-sign Co-sign Detail Recorded Client Recorded Date Recorded By Document 08/20/23 09:32 MT Desktop 08/20/23 09:34 MT Document 08/27/23 09:45 RB Desktop 08/27/23 09:48 RB 08/20/23 08/27/23 09:32 09:45 Wound Care Center Nurse 3 bilat LE -Multi-Layered Wrap Application Unna Boot - Bilateral ($) Right -Multi-Layered Wrap Application Unna Boot - Right ($) Left -Multi-Layered Wrap Application Unna Boot - Left ($) Treatment Response Procedure Tolerated Well Vital Signs Temperature (97.8 F-99.1 F) 97.1 F L Temperature Source Temporal Pulse Rate (60-100) 75 Pulse Location Monitor Respiratory Rate (12-18) 18 Respiratory rate source Observation Blood Pressure (90/60-120/80) 154/71 H Blood Pressure Mean (mm Hg) 98 Source Monitor Position Semi-Fowlers Blood Pressure Location Left Arm Pain Scale: 0-10 Numeric Is Patient Pain Free? Yes Yes WC - Visit Discharge Discharge Condition Stable Ambulatory Status Ambulatory Transportation Private Auto Medication Reconcilliation completed & No provided to patient/care provider Clinical Summary of Care Provided Yes Notes: mp to L lateral LE Assessment/Plan Assessment/Plan (1) Debility: CODE(S): R53.81 - Other malaise (2) Osteoarthritis: CODE(S): M19.90 - Unspecified osteoarthritis, unspecified site QUALIFIERS: Osteoarthritis location: multiple joints Osteoarthritis type: primary Qualified Code(s): M15.9 - Polyosteoarthritis, unspecified (3) COPD (chronic obstructive pulmonary disease): CODE(S): J44.9 - Chronic obstructive pulmonary disease, unspecified QUALIFIERS: COPD type: unspecified COPD Qualified Code(s): J44.9 - Chronic obstructive pulmonary disease, unspecified (4) Edema of both lower extremities: CODE(S): R60.0 - Localized edema (5) Venous insufficiency: CODE(S): I87.2 - Venous insufficiency (chronic) (peripheral) (6) Chronic hypoxemic respiratory failure: CODE(S): J96.11 - Chronic respiratory failure with hypoxia (7) Pulmonary hypertension: CODE(S): I27.20 - Pulmonary hypertension, unspecified (8) Morbid obesity with BMI of 45.0-49.9, adult: CODE(S): E66.01 - Morbid (severe) obesity due to excess calories; Z68.42 - Body mass index [BMI] 45.0-49.9, adult (9) Lymphedema: CODE(S): I89.0 - Lymphedema, not elsewhere classified (10) Hypothyroidism: CODE(S): E03.9 - Hypothyroidism, unspecified QUALIFIERS: Hypothyroidism type: unspecified Qualified Code(s): E03.9 - Hypothyroidism, unspecified (11) Type 2 diabetes mellitus: CODE(S): E11.9 - Type 2 diabetes mellitus without complications QUALIFIERS: Diabetes mellitus intermediate school teacher insulin use: without intermediate school teacher use Diabetes mellitus complication status: with other specified complication Qualified Code(s): E11.69 - Type 2 diabetes mellitus with other specified complication (12) DOLORES (obstructive sleep apnea): CODE(S): G47.33 - Obstructive sleep apnea (adult) (pediatric) (13) Venous ulcer of right lower extremity without varicose veins: CODE(S): I87.2 - Venous insufficiency (chronic) (peripheral); L97.919 - Non-pressure chronic ulcer of unspecified part of right lower leg with unspecified severity PLAN: Plan Evaluation and examination performed today in clinic as annotated above. At home wound-care instructions: Will try having her use tubigrip moderate compression daily. Compression: Liz has significant arthritis and is unable to don compression stockings on her own and has had several recurrences of ulcers and cellulitis over the last 18 months even with using graduated compression regularly. Due to her chronic lymphedema and recurrent ulcers it is medically necessary for her to undergo treatment with lymphedema pumps in order to prevent recurrent ulcers and cellulitis and prevent limb loss. She has failed conservative treatments with KATELYNN wraps and compression garments. She would be able to don lymphedema garments and operate the lymphedema pumps 3 times/day. She is waiting to receive lymphedema pumps and would benefit from treatment. Off-loading: The patient was instructed to avoid pressure and friction on the affected areas. Reposition every 2 hours at minimum. Avoid prolonged standing and/or dangling of legs. When seated, feet should be elevated at chest level. Frequent ambulation is encouraged. Diet: Patient encouraged to increase protein intake while taking caution to avoid high carbohydrate and/or sugar intake. Encouraged weight loss. 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 Prealbumin 17.8. Advised addition of protein supplement. She saw vascular on 09/01/23 and they recommended venous procedure to treat venous insufficiency. Encouraged her to schedule follow up appointment with her PCP to discuss incontinence and diuretic management. Will contact [facility] in [place] to assist her in determining steps needed to get her a CPAP mask to improve DOLORES and pulmonary HTN treatment compliance which is adding to her decompensated lymphedema. Follow-up: Return in 1 week for wound care follow up. Return sooner or report to the emergency room should symptoms worsen, or new symptoms arise. Note: [employer] speech recognition filling separator software was used to create portions of this document. Sound-alike and misspelled words, as well as other filling separator errors may be contained in the documentation.
[2023-09-10 09:13] VITALS: BP 160/93; PULSE 83; RESP 18; TEMP 36.4; BMI 49.8
--- NOTE | 2023-09-10 10:10 | RAD_ITS ---
HISTORY: HEEL PAIN. TECHNIQUE: XR Foot Min 3 Views. COMPARISON: None. FINDINGS: BONES : No acute fracture identified. Generalized osteopenia. Chronic appearing erosions of the first and fifth metatarsal heads. No cortical erosion identified in the calcaneus. JOINTS: No dislocation. Degenerative change. SOFT TISSUES: Soft tissue swelling of the ankle and foot. RAD/Foot min 3 Views IMPRESSION: No acute fracture or dislocation identified in the right foot. Diffuse soft tissue swelling. Electronically Signed: Ramona Jarvis MD at 9:48 EDT ,
--- NOTE | 2023-09-10 12:19 | PN.PCM_ITS ---
History of Present Illness Date of Service: 09/10/23 Chief Complaint: RLE wounds, bilateral lower extremity swelling History of Wound: Liz is a pleasant 73 yo woman that presents to the wound center for bilateral lower extremity edema and blisters of her right lower leg with recent cellulitis. She was seen in the ER on 06/20/23 and diagnosed with increased edema and possible cellulitis. She was treated with Keflex and Bumetanide. Her edema has improved some but is still present and she continues to have pain and drainage and blisters of her right lower leg. She does have compression stockings but it is difficult for her to wear when her legs are more swollen and when they are painful. She tries to elevate her legs when she is sitting but is not always consistent with doing this. She has been wrapping her leg with gauze when it is seeping but otherwise has not been doing any regular dressings. Patient has been treated at the wound center in the past for similar wounds, most recently September 2022. She has also been seen in the vascular surgery clinic where she was evaluated her for BLE DVT and venous insufficiency. 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 GSV ablation has been considered if she continued to develop recurrence of wounds. Last venous study was 03/2022. Last A1C 01/2023 was 6.4%. Last TSH - 01/2022 Patient's medical history is also significant for CHF, COPD, T2DM, lymphedema. She has a CPAP but has not been using this due to needing a new mask. She states that a prescription was to be sent and she never received the mask. Her current mask has a hole in it. She is also on oxygen but yesterday the concentrator is not working and she needs to call the company to come and check the device. She has pain and burning in her right leg that is worse at night. Subjective Subjective Liz returns for evaluation and treatment of bilateral lymphedema and ulcers of R LE. She tolerated treatment with tubigrip compression. She has had increased pain in her right heal and edema is slightly worse in both legs but there have been no new ulcers or drainage from her legs. She saw vascular surgery and they are planning on a procedure to her right lower leg for venous insufficiency. She has not received pumps yet but the [employer] was out to demonstrate and measure her for lymphedema pumps and they are in the process of approving with her insurance. Objective Data Objective Data Vital Signs: Vital Signs Temp Pulse Resp BP O2 Del Method 97.6 F L 83 18 160/93 H Room Air 09/10/23 09:13 09/10/23 09:13 09/10/23 09:13 09/10/23 09:13 09/03/23 09:06 Oxygen Delivery Method Room Air Weight: 140.16 kg Body Mass Index (BMI) 49.8 Physical Exam Const alert, oriented x3 and no apparent distress General Appearance: cooperative and comfortable Nutritional Appearance: obese HEENT normocephalic and head/scalp atraumatic Lymph Lymphatic: lymphedema severe and pitting Lymphatic Narrative: bilateral lower legs with nodular appearance and skin thickening and hyperkeratinization from ankles to knees typical of chronic lymphedema Resp normal respiratory effort Effort and Inspection: able to speak in complete sentences Cardio regular rate and regular rhythm Extremity General Extremity: edema bilateral lower extremity Details: severe (with skin changes associated with lymphedema, thickened nodular appearance from mid allen to ankle) Skin General Skin Exam: erythema, venous stasis and dermatitis Wounds: wounds noted Wound Narrative: as in clinical panel Psych mental status grossly normal, thought process normal, cooperative and affect normal Debridement Note Debridement Note No debridement was completed: No debridement was completed today Post-Debridement Measurements and Additional Note: Post-Debridement Measurements/Treatment - Nurse 1 - General Ulcer Assessment Start: 08/20/23 08:33 Freq: Status: Active Protocol: [email or web address] Activity Type Activity Date Activity User E-sign Co-sign Detail Recorded Client Recorded Date Recorded By Document 08/20/23 08:33 RB Desktop 08/20/23 08:44 RB Document 08/27/23 09:45 RB Desktop 08/27/23 09:48 RB Document 09/03/23 09:06 KW Desktop 09/03/23 09:12 KW Document 09/10/23 09:13 MT Desktop 09/10/23 09:14 MT 08/20/23 08/27/23 09/03/23 08:33 09:45 09:06 - Today's Visit Information Type of service Follow-up Visit Follow-up Visit Follow-up Visit (Physician/TOP DISTRIBUTION EXECUTIVE (Physician/TOP DISTRIBUTION EXECUTIVE (Physician/TOP DISTRIBUTION EXECUTIVE ) ) ) Arrival Mode Ambulatory Ambulatory Ambulatory Transfer Assistance None None Patient Identification Verified (Name & Yes Yes Yes ) Patient Requires Transmission-Based No No Precautions Height and Weight Body Mass Index (BMI) 49.8 49.8 49.8 BMI Classification Obese Obese Obese Vital Signs Temperature (97.8 F-99.1 F) 97 F L 97.1 F L 96.2 F L Temperature Source Temporal Temporal Temporal Pulse Rate (60-100) 87 75 93 Pulse Location Monitor Monitor Monitor Respiratory Rate (12-18) 18 18 18 Respiratory rate source Observation Observation Observation Oxygen Delivery Method Room Air Blood Pressure (90/60-120/80) 174/68 H 154/71 H 185/75 H Blood Pressure Mean (mm Hg) 103 98 111 Source Monitor Monitor Monitor Position Semi-Fowlers Semi-Fowlers Semi-Fowlers Blood Pressure Location Left Arm Left Arm Left Arm History Since Last Visit- (Skip if this is Patient's initial visit) Have you changed medications since your No No No last visit? Any new allergies or adverse reactions No No No Had a fall/change in ADL's that may No No No increase risk of falls Signs or symptoms of abuse and/or No No No neglect since last visit Have you been in the hospital since your No No No last visit? Has dressing in place as prescribed Yes Yes Yes Has compression in place as prescribed Yes Yes No Has offloadiing in place as prescribed No No N/A Experienced any changes in pain level or No No No management Left Footwear Regular Shoe Right Footwear Regular Shoe Pain Scale: 0-10 Numeric Is Patient Pain Free? Yes Yes Yes 09/10/23 09:13 WC - Today's Visit Information Type of service Follow-up Visit (Physician/TOP DISTRIBUTION EXECUTIVE ) Arrival Mode Ambulatory Transfer Assistance None Patient Identification Verified (Name & Yes ) Patient Requires Transmission-Based No Precautions Height and Weight Body Mass Index (BMI) 49.8 BMI Classification Obese Vital Signs Temperature (97.8 F-99.1 F) 97.6 F L Temperature Source Temporal Pulse Rate (60-100) 83 Pulse Location Monitor Respiratory Rate (12-18) 18 Respiratory rate source Observation Oxygen Delivery Method Blood Pressure (90/60-120/80) 160/93 H Blood Pressure Mean (mm Hg) 115 Source Monitor Position Semi-Fowlers Blood Pressure Location Left Arm History Since Last Visit- (Skip if this is Patient's initial visit) Have you changed medications since your No last visit? Any new allergies or adverse reactions No Had a fall/change in ADL's that may No increase risk of falls Signs or symptoms of abuse and/or No neglect since last visit Have you been in the hospital since your No last visit? Has dressing in place as prescribed Yes Has compression in place as prescribed Yes Has offloadiing in place as prescribed No Experienced any changes in pain level or No management Left Footwear Right Footwear Pain Scale: 0-10 Numeric Is Patient Pain Free? Yes WC - Nurse 1 - General Ulcer Measurement Start: 08/20/23 08:33 Freq: Status: Active Protocol: Activity Type Activity Date Activity User E-sign Co-sign Detail Recorded Client Recorded Date Recorded By Document 08/20/23 08:33 RB Desktop 08/20/23 08:44 RB Document 08/27/23 09:45 RB Desktop 08/27/23 09:48 RB Document 09/03/23 09:06 KW Desktop 09/03/23 09:12 KW Document 09/10/23 09:13 MT Desktop 09/10/23 09:14 MT 08/20/23 08/27/23 09/03/23 08:33 09:45 09:06 Wound Center Nurse 1 Lower Limb Edema Present Yes Yes Right Calf (cm) 58 60.5 57.5 Right Ankle (cm) 29.2 29.5 30.5 Left Calf (cm) 59 58.2 57 Left Ankle (cm) 28.5 29 30.5 09/10/23 09:13 Wound Center Nurse 1 Lower Limb Edema Present Yes Right Calf (cm) 51 Right Ankle (cm) 30 Left Calf (cm) 50.5 Left Ankle (cm) 30 WC - Nurse 2 - General Ulcer CM Notes Start: 08/20/23 08:33 Freq: Status: Active Protocol: Activity Type Activity Date Activity User E-sign Co-sign Detail Recorded Client Recorded Date Recorded By Document 09/03/23 09:25 GM Desktop 09/03/23 09:32 GM Document 09/10/23 09:32 GM Desktop 09/10/23 09:32 GM 09/03/23 09/10/23 09:25 09:32 Pain Scale: 0-10 Numeric Is Patient Pain Free? Yes Yes WC - Nurse 3 - General Ulcer D/C NN Start: 08/20/23 08:33 Freq: Status: Active Protocol: Activity Type Activity Date Activity User E-sign Co-sign Detail Recorded Client Recorded Date Recorded By Document 08/20/23 09:32 MT Desktop 08/20/23 09:34 MT Document 08/27/23 09:45 RB Desktop 08/27/23 09:48 RB Document 09/10/23 09:42 MT Desktop 09/10/23 09:43 MT 08/20/23 08/27/23 09/10/23 09:32 09:45 09:42 Wound Care Center Nurse 3 bilat LE -Multi-Layered Wrap Application Unna Boot - Bilateral ($) Right -Multi-Layered Wrap Application Unna Boot - Right ($) -Tubular Bandage Single Layer -Size of Tubigrip Used Size F -Size F ($) 1 Left -Multi-Layered Wrap Application Unna Boot - Left ($) -Tubular Bandage Single Layer -Size of Tubigrip Used Size F -Size F ($) 1 Treatment Response Procedure Procedure Tolerated Well Tolerated Well Vital Signs Temperature (97.8 F-99.1 F) 97.1 F L Temperature Source Temporal Pulse Rate (60-100) 75 Pulse Location Monitor Respiratory Rate (12-18) 18 Respiratory rate source Observation Blood Pressure (90/60-120/80) 154/71 H Blood Pressure Mean (mm Hg) 98 Source Monitor Position Semi-Fowlers Blood Pressure Location Left Arm Pain Scale: 0-10 Numeric Is Patient Pain Free? Yes Yes Yes Teaching: Wound Center Control Swelling with Leg Elevation -Person Taught Patient -Teaching Method Discussion, Demonstration -Response to teaching Verbalize understanding WC - Visit Discharge Discharge Condition Stable Stable Ambulatory Status Ambulatory Ambulatory Transportation Private Auto Private Auto Medication Reconcilliation completed & No No provided to patient/care provider Clinical Summary of Care Provided Yes Yes Notes: mp to L lateral LE Assessment/Plan Assessment/Plan (1) Debility: CODE(S): R53.81 - Other malaise (2) Osteoarthritis: CODE(S): M19.90 - Unspecified osteoarthritis, unspecified site QUALIFIERS: Osteoarthritis location: multiple joints Osteoarthritis type: primary Qualified Code(s): M15.9 - Polyosteoarthritis, unspecified (3) COPD (chronic obstructive pulmonary disease): CODE(S): J44.9 - Chronic obstructive pulmonary disease, unspecified QUALIFIERS: COPD type: unspecified COPD Qualified Code(s): J44.9 - Chronic obstructive pulmonary disease, unspecified (4) Edema of both lower extremities: CODE(S): R60.0 - Localized edema (5) Venous insufficiency: CODE(S): I87.2 - Venous insufficiency (chronic) (peripheral) (6) Chronic hypoxemic respiratory failure: CODE(S): J96.11 - Chronic respiratory failure with hypoxia (7) Pulmonary hypertension: CODE(S): I27.20 - Pulmonary hypertension, unspecified (8) Morbid obesity with BMI of 45.0-49.9, adult: CODE(S): E66.01 - Morbid (severe) obesity due to excess calories; Z68.42 - Body mass index [BMI] 45.0-49.9, adult (9) Lymphedema: CODE(S): I89.0 - Lymphedema, not elsewhere classified (10) Hypothyroidism: CODE(S): E03.9 - Hypothyroidism, unspecified QUALIFIERS: Hypothyroidism type: unspecified Qualified Code(s): E03.9 - Hypothyroidism, unspecified (11) Type 2 diabetes mellitus: CODE(S): E11.9 - Type 2 diabetes mellitus without complications QUALIFIERS: Diabetes mellitus alf insulin use: without alf use Diabetes mellitus complication status: with other specified complication Qualified Code(s): E11.69 - Type 2 diabetes mellitus with other specified complication (12) DOLORES (obstructive sleep apnea): CODE(S): G47.33 - Obstructive sleep apnea (adult) (pediatric) (13) Venous ulcer of right lower extremity without varicose veins: CODE(S): I87.2 - Venous insufficiency (chronic) (peripheral); L97.919 - Non-pressure chronic ulcer of unspecified part of right lower leg with unspecified severity PLAN: Plan Evaluation and examination performed today in clinic as annotated above. At home wound-care instructions: Will continue having her use tubigrip moderate compression daily and begin use of lymphedema pumps 3 times/day once they are received. Compression: Liz has significant arthritis and is unable to don compression stockings on her own and has had several recurrences of ulcers and cellulitis over the last 18 months even with using graduated compression regularly. Due to her chronic lymphedema and recurrent ulcers it is medically necessary for her to undergo treatment with lymphedema pumps in order to prevent recurrent ulcers and cellulitis and prevent limb loss. She has failed conservative treatments with KATELYNN wraps and compression garments. She would be able to don lymphedema garments and operate the lymphedema pumps 3 times/day. She is waiting to receive lymphedema pumps and would benefit from treatment. Off-loading: The patient was instructed to avoid pressure and friction on the affected areas. Reposition every 2 hours at minimum. Avoid prolonged standing and/or dangling of legs. When seated, feet should be elevated at chest level. Frequent ambulation is encouraged. Diet: Patient encouraged to increase protein intake while taking caution to avoid high carbohydrate and/or sugar intake. Encouraged weight loss. 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 Prealbumin 17.8. Advised addition of protein supplement. She saw vascular on 09/01/23 and they recommended venous procedure to treat venous insufficiency. Encouraged her to schedule follow up appointment with her PCP to discuss incontinence and diuretic management. Will contact [facility] in [place] to assist her in determining steps needed to get her a CPAP mask to improve DOLORES and pulmonary HTN treatment compliance which is adding to her decompensated lymphedema. Follow-up: Return in 1 week for wound care follow up. Return sooner or report to the emergency room should symptoms worsen, or new symptoms arise. Note: [employer] speech recognition crm consultant software was used to create portions of this document. Sound-alike and misspelled words, as well as other crm consultant errors may be contained in the documentation.
== END 2023-09-19 23:59 | disposition home or self-care (01) ==
LOC: WC 09:00
PROVIDERS: PCP Internal Medicine; Referring Provider Internal Medicine; Visit Provider Family Medicine
DX: S80.821A Blister (nonthermal), right lower leg, initial encounter (principal); J96.11 Chronic respiratory failure with hypoxia; I50.9 Heart failure, unspecified; I27.20 Pulmonary hypertension, unspecified; J44.9 Chronic obstructive pulmonary disease, unspecified; E66.01 Morbid (severe) obesity due to excess calories; Z68.42 Body mass index [BMI] 45.0-49.9, adult; E11.9 Type 2 diabetes mellitus without complications; X58.XXXA Exposure to other specified factors, initial encounter; I89.0 Lymphedema, not elsewhere classified; L03.115 Cellulitis of right lower limb; I87.2 Venous insufficiency (chronic) (peripheral); M15.9 Polyosteoarthritis, unspecified; R60.0 Localized edema; E03.9 Hypothyroidism, unspecified; G47.33 Obstructive sleep apnea (adult) (pediatric); Z79.899 Other long term (current) drug therapy
CPT/HCPCS: 29580; 73630; 99213; G0463

== ENCOUNTER 2023-09-24 13:58 | Emergency (ER) | payer MEDICARE, MEDICAID, SELFPAY ==
[2023-09-24 13:58] VITALS: BP 184/82; PULSE 95; RESP 16; O2SAT 92
[2023-09-24 14:01] VITALS: BP 200/97; PULSE 92; RESP 14; TEMP 36.8; O2SAT 93; BMI 49.8
--- NOTE | 2023-09-24 14:11 | ED.VIS.CHEST ---
HPI History of Present Illness Chief Complaint: Chest Pain [facility] Medical History Abdominal pain Alcohol use Asthma Back pain Bladder disease Blister Cardiology follow-up encounter Chronic respiratory failure with hypoxia Constipation COPD (chronic obstructive pulmonary disease) CPAP (continuous positive airway pressure) dependence Debility Depression Depression Dermatitis Diabetes Diabetes mellitus type 2 in obese Dietary restriction Difficulty swallowing Difficulty swallowing DVT (deep venous thrombosis) DVT, bilateral lower limbs Easy bruising Essential hypertension Former smoker Gastric ulcer GERD (gastroesophageal reflux disease) Health care maintenance History of CHF (congestive heart failure) History of echocardiogram History of edema History of pain when walking Hx of cyst of breast Hyperlipidemia Hypertension Hypothyroidism Inactivity Left knee pain Left ventricular hypertrophy Leg cramps Lymphedema Morbid obesity with BMI of 45.0-49.9, adult Neuropathy On home oxygen therapy DOLORES (obstructive sleep apnea) Osteoarthritis Pneumonia due to COVID-19 virus (01/30/21) Secondary pulmonary arterial hypertension Shingles Shortness of breath on exertion Sore throat Syncope Type 2 diabetes mellitus Ulcer of right lower extremity Urinary incontinence with continuous leakage Walker as ambulation aid Wears dentures Wears glasses Home Medications fenofibrate nanocrystallized 48 mg tablet 48 mg PO DAILY 05/07/21 [History Last Taken Unknown] calcium carb 300 mg-D3 20 mcg-mag ox 25 mg-endoscopy support specialist 0.5 [id number] tablet (Caltrate-D3 Plus Minerals) 1 tab PO DAILY 06/09/21 [History Last Taken Unknown] Nebulizer #1 ea 10/06/21 [Rx Last Taken Unknown] docusate sodium 100 mg capsule (Stool Softener) 100 mg PO BID 06/04/22 [History Last Taken Unknown] furosemide 40 mg tablet 40 mg PO BID HEART FAILURE #180 tabs 09/04/22 [Rx Last Taken Unknown] fluticasone fur. 200 mcg-umeclid 62.5 mcg-vilant 25 mcg inhalat.powder (Trelegy Ellipta) 1 inh inhalation DAILY #60 ea 10/01/22 [Rx Last Taken Unknown] Handicap Placard #1 ea 11/02/22 [Rx Last Taken Unknown] Bedside Commode #1 ea 02/11/23 [Rx Last Taken Unknown] walker (Ultra-Light Rollator misc) #1 ea 02/11/23 [Rx Last Taken Unknown] levothyroxine 100 mcg tablet See Rx Instructions .Route .COMPLEX #90 tabs 04/28/23 [Rx Last Taken Unknown] atorvastatin 40 mg tablet 40 mg PO QHS 06/20/23 [History Last Taken Unknown] bumetanide 1 mg tablet 1 mg PO BID #14 tabs 06/20/23 [Rx Last Taken Unknown] carvedilol 25 mg tablet 25 mg PO DAILY 06/20/23 [History Last Taken Unknown] oxybutynin chloride 5 mg tablet 5 mg PO BID bladder 06/20/23 [History Last Taken Unknown] pantoprazole 40 mg tablet,delayed release 40 mg PO DAILY 06/20/23 [History Last Taken Unknown] cephalexin 500 mg capsule 500 mg PO BID #14 caps 09/10/23 [Rx Last Taken Unknown] duloxetine 60 mg capsule,delayed release 60 mg PO DAILY #90 caps 09/17/23 [Rx Last Taken Unknown] albuterol sulfate 90 mcg/actuation aerosol inhaler 2 puff inhalation Q6H PRN PRN for wheezing #8.5 ea 09/22/23 [Rx Last Taken Unknown] albuterol sulfate 90 mcg/actuation breath activated powder inhaler 2 inh inhalation Q4H PRN shortness of breath or wheezing #1 ea 09/24/23 [Rx Last Taken Unknown] ipratropium bromide 17 mcg/actuation HFA aerosol inhaler 1 inh inhalation Q6H PRN shortness of breath or wheezing #12.9 grams 09/24/23 [Rx Last Taken Unknown] prednisone 50 mg tablet 50 mg PO DAILY #5 tabs 09/24/23 [Rx Last Taken Unknown] prednisone 50 mg tablet 50 mg PO DAILY 5 days #5 tabs 09/24/23 [Rx Last Taken Unknown] Allergy/AdvReac Type Severity Reaction Status Date / Time metformin AdvReac Intermediate Other Verified 09/24/23 13:59 aspirin AdvReac Abd Verified 09/24/23 13:59 cramps/diarrhea codeine AdvReac Abd Verified 09/24/23 13:59 cramps/diarrhea Penicillins AdvReac Hives Verified 09/24/23 13:59 Family History Grandfather Cancer Daughter Ovarian cancer Brother Diabetes Kidney disease Surgical History History of bunionectomy History of esophagogastroduodenoscopy (EGD) Hx of cholecystectomy Hx of colonoscopy Social History Smoking Status: Never smoker Tobacco: How many years used: 30 how long ago did patient quit smokin years alcohol intake: never substance use type: does not use what type of physical activity do you participate in: none EXAM Physical Exam Const Vital Signs: 09/24/23 14:01 09/24/23 13:58 09/24/23 14:21 Temperature 98.2 F Temperature Source Temporal Pulse Rate 92 95 Respiratory Rate 14 16 Respiratory Effort Short of Breath Blood Pressure 200/97 H 184/82 H Blood Pressure Mean 131 116 Pulse Ox 93 92 Oxygen Delivery Method Room Air Oxygen Flow Rate (L/min) 09/24/23 15:05 09/24/23 15:31 09/24/23 16:55 Temperature Temperature Source Pulse Rate 69 Respiratory Rate 18 Respiratory Effort Blood Pressure 166/70 H Blood Pressure Mean 102 Pulse Ox 97 98 Oxygen Delivery Method Room Air Nasal Cannula Nasal Cannula Oxygen Flow Rate (L/min) 2 4 09/24/23 16:55 09/24/23 16:56 09/24/23 17:06 Temperature 97.6 F L Temperature Source Pulse Rate 78 79 Respiratory Rate 15 20 H Respiratory Effort Blood Pressure 154/59 H Blood Pressure Mean 90 Pulse Ox 98 94 Oxygen Delivery Method Nasal Cannula Oxygen Flow Rate (L/min) 2 MDM MDM MDM Narrative Medical decision making narrative: HISTORY OF PRESENT ILLNESS: 73-year female presents with chest pain shortness of breath for 2 weeks. Notes dyspnea on exertion. Denies any chest pain at this time. States she seen her PCP office and sent in for further evaluation. She says sometimes her heart flutters. Notes history of DVT but denies any other PE risk factors including recent surgery, chemotherapy, leg swelling, estrogen use REVIEW OF SYSTEMS: Pertinent positives: Shortness of breath, chest pain Pertinent negatives: Fever, syncope PHYSICAL EXAM: Nursing triage notes reviewed, Vital signs reviewed Constitutional: please see mdm HENT: MMM Eyes: Pupils equal round and reactive to light, Extraocular muscles intact Neck: No stridor, no JVD, full neck ROM Lungs: Clear to auscultation, diminished breath sounds, prolonged expiration and slight wheezing. No increased work of breathing, no conversational dyspnea, no accessory muscle use, no nasal flaring. No respiratory distress noted Heart: Regular rate and rhythm, No murmurs, No rubs and No gallops, 2+ distal pulses (radial, femoral, posterior tibial) in all extremities Abdomen: Soft, there is no tenderness, rigidity, rebound or guarding, no obvious peritoneal signs, no palpable pulsatile abdominal masses, no auscultated abdominal bruit : No CVAT Extremities: No edema Neuro: No focal neurological deficits, cranial nerves II through XII intact, 5/5 strength in all extremities. Intact sensation to light touch in all extremities, 2+ reflexes bilateral patella tendons. Normal gait. No ataxia. Skin: No rash or lesions noted MEDICAL DECISION MAKING: Chief Complaint: Chest pain, shortness of breath External records reviewed: Imaging reviewed: Echocardiogram reviewed from 2021 shows ejection fraction 55% with no regional wall motion abnormality Factors affecting care: Hyperlipidemia, peripheral vascular disease, COPD, hypertension, LVH, hypothyroidism, GERD, DOLORES, pulm hypertension, DVT MDM Narrative: Patient was initially hypertensive otherwise afebrile and nontoxic-appearing. Exam with slight wheezing I considered the following differential diagnosis: Pneumonia, COVID, ACS, PE, anemia, arrhythmia, electrolyte disturbance, CHF ALL IMAGES (IF OBTAINED) HAVE BEEN PERSONALLY REVIEWED AND INTERPRETED BY MYSELF. EKG with normal sinus rhythm, left ax deviation, normal intervals, no STEMI, no signs of right heart strain I have personally reviewed the patient's chest x-ray. Chest x-ray is unremarkable for pulmonary edema, pneumothorax, pneumonia or focal cardiopulmonary abnormality. CT of the chest shows no evidence of PE pneumonia heart failure CBC with no leukocytosis, no anemia or thrombocytopenia BMP without evidence of significant electrolyte abnormalities, no anion gap, no acute kidney injury. High-sensitivity troponin is negative, no evidence of myocardial ischemia BNP within normal limits suggestive of no heart failure Patient ambulate without significant hypoxia. She has home oxygen therapy as well. The synthesis of the patient's history, exam, images suggest likely COPD exacerbation. Patient has home oxygen. She given prednisone and breathing treatments are ongoing. He is appropriate discharge The patient and/or family, caregivers express understanding. The patient and/or family, caregivers agrees with the plan. Shared decision making: I will have a discussion with the patient and or visitors regarding risk/benefits of further testing or admission. They will be made aware of of the risk/benefits inherent in this decision they will be given the opportunity to voice understanding. Total critical care time today provided was at least 0 minutes. This excludes separately billable procedures. Critical care time (if documented) is secondary to the patient having high probability of clinically significant/life threatening deterioration in the patient's condition which required my urgent intervention. Impression: 1. Chest pain 2. COPD exacerbation Dispo: Discharge This note was generated with [employer] dictation software. It may contain incorrect words, spelling, and punctuation that were not noted in review of the chart prior to signing. Lab Data Labs: Laboratory Results - last 24 hr 09/24/23 14:30 WBC 8.2 RBC 5.88 H Hgb 15.1 H Hct 48.6 H MCV 82.7 MCH 25.7 L MCHC 31.1 L RDW Std Deviation 46.5 H RDW Coeff of Mike 15.5 H Plt Count 253 MPV 9.8 Immature Gran % (Auto) 0.700 Neut % (Auto) 65.5 Lymph % (Auto) 23.4 [place] % (Auto) 7.3 Eos % (Auto) 2.4 Baso % (Auto) 0.7 Absolute Neuts (auto) 5.3 Absolute Lymphs (auto) 1.91 Nucleated RBC % 0 D-Dimer Quant (PE/DVT) 1.20 H* Sodium 141 Potassium 4.2 Chloride 106 Carbon Dioxide 31.0 Anion Gap 4 L BUN 14 Creatinine 0.99 Estim Creat Clear Calc 72.14 Est GFR (MDRD) Af Amer 70 Est GFR (MDRD) Non-Af 58 L BUN/Creatinine Ratio 14.1 Glucose 125 H Calcium 9.6 Troponin I High Sens 8 B-Natriuretic Peptide 33.6 Hep Bs Antigen Non-Reactive Hep Bs Antibody Non-Reactive Hepatitis C Antibody Non-Reactive HIV 1&2 Antibody Non-Reactive Radiography Diagnostic Testing: Clinical Impression(s) from Imaging Studies Chest X-Ray 09/24/23 14:50 IMPRESSION: No acute cardiopulmonary process identified. Electronically Signed: Ramona Jarvis MD at 15:12 EDT , Chest CTA 09/24/23 15:42 IMPRESSION: No demonstrated PE, or thoracic aortic aneurysm or dissection Chronic interstitial changes in both lung ferrera without a superimposed acute pulmonary process Degenerative bony changes Electronically Signed: Todd Grant MD at 16:21 EDT , Discharge Plan Triage Chief Complaint: Chest Pain ED Provider: Darrion Simons Dx/Rx/DC Orders Clinical Impression: COPD (chronic obstructive pulmonary disease) Instructions: COPD: Wheezing and Chest Tightness Prescriptions: New prednisone 50 mg tablet 50 mg PO DAILY Qty: 5 0RF prednisone 50 mg tablet 50 mg PO DAILY 5 Days Qty: 5 0RF albuterol sulfate 90 mcg/actuation aerosol powdr breath activated 2 inh inhalation Q4H PRN (Reason: shortness of breath or wheezing) Qty: 1 0RF ipratropium bromide 17 mcg/actuation HFA aerosol inhaler 1 inh inhalation Q6H PRN (Reason: shortness of breath or wheezing) Qty: 12.9 0RF No Action fenofibrate nanocrystallized 48 mg tablet 48 mg PO DAILY Caltrate-D3 Plus Minerals 300 mg-800 unit -25 mg-0.5 mg tablet 1 tab PO DAILY (DME) Nebulizer See Rx Instructions .ROUTE .MEDSUPPLY Qty: 1 0RF Rx Instructions: As directed Trelegy Ellipta 200-62.5-25 mcg blister with device 1 inh inhalation DAILY Qty: 60 6RF (DME) Handicap Placard See Rx Instructions .ROUTE .MEDSUPPLY Qty: 1 0RF Rx Instructions: As directed, length of time 3 years (DME) Bedside Commode See Rx Instructions .Route .MEDSUPPLY Qty: 1 0RF Rx Instructions: As directed (DME) Ultra-Light Rollator Misc See Rx Instructions .Route Qty: 1 0RF Rx Instructions: As directed docusate sodium [Stool Softener] 100 mg Capsule 100 mg PO BID atorvastatin 40 mg tablet 40 mg PO QHS carvedilol 25 mg tablet 25 mg PO DAILY oxybutynin chloride 5 mg tablet 5 mg PO BID pantoprazole 40 mg tablet,delayed release (DR/EC) 40 mg PO DAILY Rx Instructions: 40 MG ORALY DAILY bumetanide 1 mg tablet 1 mg PO BID Qty: 14 0RF cephalexin 500 mg capsule 500 mg PO BID Qty: 14 0RF furosemide 40 mg tablet 40 mg PO BID Qty: 180 4RF levothyroxine 100 mcg tablet See Rx Instructions .ROUTE .COMPLEX Qty: 90 3RF Dose Instruction: 100 MCG ORALLY DAILY FOR HYPOTHYROIDISM Rx Instructions: 100 MCG ORALLY DAILY FOR HYPOTHYROIDISM duloxetine 60 mg capsule,delayed release(DR/EC) 60 mg PO DAILY Qty: 90 0RF albuterol sulfate 90 mcg/actuation HFA aerosol inhaler 2 puff inhalation Q6H PRN PRN (Reason: for wheezing) Qty: 8.5 1RF Primary Care Provider: Luis Cortés Referrals: Luis Cortés MD [Primary Care Provider] - Activity Restrictions/Additional Instructions: Thank you for trusting us with your care today! Please take Tylenol (2 pills, 650 mg), ibuprofen (2 pills, 400 mg) every 6 hours as needed for pain and fever control. Please take prednisone as prescribed Please return to the emergency department if your symptoms change or worsen. Please follow with your primary care physician for further outpatient evaluation and management. Disposition Disposition: Home, Self Care Discharge Date/Time: 09/24/23 17:16
--- NOTE | 2023-09-24 14:50 | RAD_ITS ---
HISTORY: chest pain. TECHNIQUE: XR Chest 1 View. COMPARISON: 06/20/2023. FINDINGS: CARDIOMEDIASTINAL BORDERS: Cardiac silhouette again moderately enlarged. Calcification of the aortic knob. LUNGS: Chronic coarse interstitial markings in the lungs without focal consolidation. PLEURA: No pleural effusion or pneumothorax seen. OSSEOUS STRUCTURES: Mild degenerative change. RAD/Chest 1 View (Portable) IMPRESSION: No acute cardiopulmonary process identified. Electronically Signed: Ramona Jarvis MD at 15:12 EDT ,
[2023-09-24 15:12] LABS: Absolute Lymphocyte Count 1.91 X10^3/uL (0.83-4.51); Absolute Neutrophil Count 5.3 X10^3/uL (2.0-7.7); Basophil# 0.06 X10^3/uL; Basophil% 0.7 % (0-1); Eosinophils% 2.4 % (0-5); Hematocrit 48.6 % (37-47); Hemoglobin 15.1 g/dL (12.0-15.0); Lymphocyte # 1.91 X10^3/ul (0.83-4.51); Lymphocyte % 23.4 % (19-41); Mean Corp Hgb Conc 31.1 g/dL (32-36); Mean Corpuscular Hgb 25.7 pg (27.0-32.0); Mean Corpuscular Volume 82.7 fL (81-99); Mean Platelet Vol. 9.8 fl (6.2-12.0); Monocyte% 7.3 % (0-10); NRBC Flagged by Analyzer 0 % (0-5); Neutrophil # 5.34 X10^3/uL (2.7-7.7); Neutrophil % 65.5 % (47-70); Platelet Count 253 K/mm3 (150-450); RBC Distribution Width CV 15.5 % (11.6-14.6); RBC Distribution Width SD 46.5 fl (35.1-43.9); Red Blood Count 5.88 M/mm3 (4.2-5.4); White Blood Count 8.2 K/mm3 (4.4-11.0)
[2023-09-24 15:31] VITALS: BP 166/70; PULSE 69; RESP 18; O2SAT 97
[2023-09-24 15:41] LABS: BNP,B-Type NATRIURETIC PEPTIDE 33.6 pg/mL (0-100)
--- NOTE | 2023-09-24 15:42 | CT_ITS ---
STUDY: CTA CHEST REASON FOR EXAM: Female, 73 years old. Chest pain/pressure RADIATION DOSAGE (If Supplied By Facility): CTDIvol = ( 20.90 ) mGy, DLP = ( 550.26 ) mGycm TECHNIQUE: The examination was performed with the intravenous administration of IV 100mL [id number]-370. Post-processing of the angiographic images was performed, with multiplanar reformation and 3D reconstruction. Individualized dose optimization techniques were used for this CT. COMPARISON: None. FINDINGS: Normal enhancement of the main pulmonary artery and right and left pulmonary arteries. Normal enhancement of the bilateral peripheral pulmonary arteries. There is no demonstrated pulmonary embolism. There is atherosclerotic calcification of the aortic arch with tortuosity. There is no demonstrated aortic dissection. Normal heart and pericardium. There are calcifications of the coronary arteries. Normal mediastinum. Normal hilar regions. There is peribronchial thickening. The lungs are well expanded. Chronic interstitial changes noted in both lung ferrera with nonspecific pleural thickening and evidence of chronic bronchitis. No organized infiltrate or effusion, no suspicious noncalcified mass or nodule Normal pleura. Normal chest wall structures. There are degenerative changes of thoracic spine. Normal visualized upper abdomen. CT/CTA Chest W/WO Contrast IMPRESSION: No demonstrated PE, or thoracic aortic aneurysm or dissection Chronic interstitial changes in both lung ferrera without a superimposed acute pulmonary process Degenerative bony changes Electronically Signed: Todd Grant MD at 16:21 EDT ,
[2023-09-24 15:44] LABS: Anion Gap 4 (5-15); BUN 14 mg/dL (7-18); BUN/Creat Ratio 14.1 RATIO (10-20); Calcium,Total 9.6 mg/dL (8.5-10.1); Chloride 106 mmol/L (98-107); Creatinine, Serum 0.99 mg/dL (0.55-1.02); EST Glomerular Filtration Rate 58 mL/min (>60); Est Glom Filt Rate - Afr Amer 70 mL/min (>60); Estimated Creatinine Clearance 72.14 ml/min; Glucose 125 mg/dL (74-106); Potassium 4.2 mmol/L (3.5-5.1); Sodium Level 141 mmol/L (136-145); Troponin-I HS (w/2H Reflex) 8 pg/mL (3.0-54.0)
[2023-09-24] MEDS: Ipratropium/Albuterol Sulfate 3 ML AMPUL.NEB INHALATION (16:28)
[2023-09-24 16:55] VITALS: PULSE 78; RESP 15; O2SAT 98
[2023-09-24 16:56] VITALS: O2SAT 98
[2023-09-24 17:02] LABS: Reflex Troponin-HS? (from REC) Y
[2023-09-24 17:06] VITALS: BP 154/59; PULSE 79; RESP 20; TEMP 36.4; O2SAT 94
[2023-09-24 18:28] LABS: HIV - WCH Non-Reactive (Nonreactive); Hepatitis B Surface Antibody Non-Reactive; Hepatitis B Surface Antigen Non-Reactive (Nonreactive); Hepatitis C Antibody Non-Reactive (Nonreactive)
[2023-09-26 09:07] LABS: Hepatitis B Core Ab Total Negative (Negative)
== END 2023-09-24 17:16 | disposition home or self-care (01) ==
PROVIDERS: Emergency Provider Emergency Medicine; PCP Internal Medicine; Visit Provider Emergency Medicine
DX: R07.9 Chest pain, unspecified (principal); I50.9 Heart failure, unspecified; J44.1 Chronic obstructive pulmonary disease with (acute) exacerbation; E11.51 Type 2 diabetes mellitus with diabetic peripheral angiopathy without gangrene; G47.33 Obstructive sleep apnea (adult) (pediatric); R06.02 Shortness of breath; Z86.718 Personal history of other venous thrombosis and embolism; Z99.81 Dependence on supplemental oxygen; Z87.891 Personal history of nicotine dependence
CPT/HCPCS: 71045; 71275; 80048; 83880; 84484; 85025; 85379; 86703; 86704; 86706; 86803; 87340; 93005; 94640; 99284; Q9967; A4216

== ENCOUNTER → 2023-10-29 | Outpatient (CLI) | payer MEDICARE, MEDICAID, SELFPAY ==
[2023-10-29 14:17] LABS: Absolute Lymphocyte Count 1.38 X10^3/uL (0.83-4.51); Absolute Neutrophil Count 4.5 X10^3/uL (2.0-7.7); Basophil# 0.06 X10^3/uL; Basophil% 0.9 % (0-1); Eosinophil# 0.15 X10^3/uL; Eosinophils% 2.3 % (0-5); Hematocrit 43.8 % (37-47); Hemoglobin 13.5 g/dL (12.0-15.0); Lymphocyte # 1.38 X10^3/ul (0.83-4.51); Lymphocyte % 20.8 % (19-41); Mean Corp Hgb Conc 30.8 g/dL (32-36); Mean Corpuscular Hgb 26.1 pg (27.0-32.0); Mean Corpuscular Volume 84.6 fL (81-99); Mean Platelet Vol. 9.2 fl (6.2-12.0); Monocyte# 0.51 X10^3/uL; Monocyte% 7.7 % (0-10); NRBC Flagged by Analyzer 0 % (0-5); Neutrophil # 4.45 X10^3/uL (2.7-7.7); Neutrophil % 67.1 % (47-70); Platelet Count 251 K/mm3 (150-450); RBC Distribution Width CV 15.6 % (11.6-14.6); RBC Distribution Width SD 47.8 fl (35.1-43.9); Red Blood Count 5.18 M/mm3 (4.2-5.4); White Blood Count 6.6 K/mm3 (4.4-11.0)
[2023-10-29 14:52] LABS: Anion Gap 5 (5-15); BUN 12 mg/dL (7-18); BUN/Creat Ratio 15.1 RATIO (10-20); Calcium,Total 9.2 mg/dL (8.5-10.1); Chloride 106 mmol/L (98-107); EST Glomerular Filtration Rate 75 mL/min (>60); Est Glom Filt Rate - Afr Amer 91 mL/min (>60); Glucose 149 mg/dL (74-106); Potassium 3.8 mmol/L (3.5-5.1); Sodium Level 141 mmol/L (136-145)
[2023-10-29 16:32] LABS: BNP,B-Type NATRIURETIC PEPTIDE 24.1 pg/mL (0-100)
== END | disposition home or self-care (01) ==
LOC: LAB 13:38
PROVIDERS: PCP Internal Medicine; Referring Provider Nurse Practitioner Gerontology; Visit Provider Nurse Practitioner Gerontology
DX: R06.09 Other forms of dyspnea (principal); R53.83 Other fatigue
CPT/HCPCS: 36415; 80048; 83880; 84443; 85025

== ENCOUNTER → 2023-11-12 | Outpatient (CLI) | payer MEDICARE, MEDICAID, SELFPAY | END | disposition home or self-care (01) | PROVIDERS: PCP Internal Medicine; Referring Provider Nurse Practitioner Gerontology; Visit Provider Nurse Practitioner Gerontology | DX: R00.2 Palpitations (principal) | CPT/HCPCS: 93225; 93226 ==

== ENCOUNTER 2023-11-19 08:00 | Outpatient (RCR) | payer MEDICARE, MEDICAID, SELFPAY ==
[2023-09-20 00:42] VITALS: BP 160/93; PULSE 83; RESP 18; TEMP 36.4; BMI 49.8
[2023-11-05 08:29] VITALS: BP 184/67; PULSE 86; RESP 18; TEMP 35.3; BMI 49.6
--- NOTE | 2023-11-05 10:52 | HP.PCM_ITS ---
History of Present Illness Date of Service: 11/05/23 Chief Complaint: B/L LE ulcers, bilateral lower extremity swelling History of Wound: Liz is a pleasant 73 yo woman that presents to the wound center for bilateral lower extremity edema and blisters of her right lower leg with recent cellulitis. She was seen in the ER on 06/20/23 and diagnosed with increased edema and possible cellulitis. She was treated with Keflex and Bumetanide. Her edema has improved some but is still present and she continues to have pain and drainage and blisters of her right lower leg. She does have compression stockings but it is difficult for her to wear when her legs are more swollen and when they are painful. She tries to elevate her legs when she is sitting but is not always consistent with doing this. She has been wrapping her leg with gauze when it is seeping but otherwise has not been doing any regular dressings. Patient has been treated at the wound center in the past for similar wounds, most recently July 2023. She has also been seen in the vascular surgery clinic where she was evaluated her for BLE DVT and venous insufficiency. 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 GSV ablation has been considered and was planned but she did not hear from Vascular surgery regarding surgery date. She also has not received lymphedema pumps that were ordered during her last treatment course. They are awaiting approval from cardiology. Last venous study was 03/2022. Last A1C 01/2023 was 6.4%. Last TSH - 01/2022 Patient's medical history is also significant for CHF, COPD, T2DM, lymphedema. She has a CPAP but has not been using this due to needing a new mask. She states that a prescription was to be sent and she never received the mask. Her current mask has a hole in it. [facility] Medical History Debility Osteoarthritis Left knee pain Shingles Urinary incontinence with continuous leakage Gastric ulcer Wears glasses Wears dentures Depression Alcohol use Blister Diabetes Walker as ambulation aid Bladder disease DVT (deep venous thrombosis) Easy bruising Back pain Syncope Dietary restriction Constipation Difficulty swallowing Former smoker CPAP (continuous positive airway pressure) dependence On home oxygen therapy Shortness of breath on exertion Neuropathy Leg cramps History of pain when walking History of edema Hypertension History of CHF (congestive heart failure) History of echocardiogram Cardiology follow-up encounter Hx of cyst of breast Abdominal pain Secondary pulmonary arterial hypertension Hyperlipidemia Left ventricular hypertrophy DVT, bilateral lower limbs Health care maintenance Dermatitis Sore throat Essential hypertension Morbid obesity with BMI of 45.0-49.9, adult Inactivity Lymphedema Asthma GERD (gastroesophageal reflux disease) Ulcer of right lower extremity Difficulty swallowing Depression Type 2 diabetes mellitus Chronic respiratory failure with hypoxia DOLORES (obstructive sleep apnea) Hypothyroidism Pneumonia due to COVID-19 virus (01/30/21) Diabetes mellitus type 2 in obese COPD (chronic obstructive pulmonary disease) Home Medications ?Medication ?Instructions ?Recorded ?Last Taken ?Type fenofibrate nanocrystallized 48 mg 48 mg PO DAILY 05/07/21 Unknown History tablet calcium carb 300 mg-D3 20 mcg-mag 1 tab PO DAILY 06/09/21 Unknown History ox 25 mg-copying machine mechanic 0.5 [id number] tablet (Caltrate-D3 Plus Minerals) Nebulizer #1 ea 10/06/21 Unknown Rx docusate sodium 100 mg capsule 100 mg PO BID 06/04/22 Unknown History (Stool Softener) furosemide 40 mg tablet 40 mg PO BID HEART FAILURE #180 09/04/22 Unknown Rx tabs fluticasone fur. 200 mcg-umeclid 1 inh inhalation DAILY #60 ea 10/01/22 Unknown Rx 62.5 mcg-vilant 25 mcg inhalat.powder (Trelegy Ellipta) Handicap Placard #1 ea 11/02/22 Unknown Rx Bedside Commode #1 ea 02/11/23 Unknown Rx walker (Ultra-Light Rollator misc) #1 ea 02/11/23 Unknown Rx levothyroxine 100 mcg tablet See Rx Instructions .Route 04/28/23 Unknown Rx .COMPLEX #90 tabs atorvastatin 40 mg tablet 40 mg PO QHS 06/20/23 Unknown History bumetanide 1 mg tablet 1 mg PO BID #14 tabs 06/20/23 Unknown Rx carvedilol 25 mg tablet 25 mg PO DAILY 06/20/23 Unknown History oxybutynin chloride 5 mg tablet 5 mg PO BID bladder 06/20/23 Unknown History pantoprazole 40 mg tablet,delayed 40 mg PO DAILY 06/20/23 Unknown History release duloxetine 60 mg capsule,delayed 60 mg PO DAILY #90 caps 09/17/23 Unknown Rx release albuterol sulfate 90 mcg/actuation 2 puff inhalation Q6H PRN PRN for 09/22/23 Unknown Rx aerosol inhaler wheezing #8.5 ea albuterol sulfate 90 mcg/actuation 2 inh inhalation Q4H PRN shortness 09/24/23 Unknown Rx breath activated powder inhaler of breath or wheezing #1 ea ipratropium bromide 17 1 inh inhalation Q6H PRN shortness 09/24/23 Unknown Rx mcg/actuation HFA aerosol inhaler of breath or wheezing #12.9 grams prednisone 50 mg tablet 50 mg PO DAILY #5 tabs 09/24/23 Unknown Rx Allergy/AdvReac Type Severity Reaction Status Date / Time metformin AdvReac Intermediate Other Verified 10/29/23 13:19 aspirin AdvReac Abd Verified 10/29/23 13:19 cramps/diarrhea codeine AdvReac Abd Verified 10/29/23 13:19 cramps/diarrhea Penicillins AdvReac Hives Verified 10/29/23 13:19 Family History Grandfather Cancer Daughter Ovarian cancer Brother Diabetes Kidney disease Surgical History History of esophagogastroduodenoscopy (EGD) Hx of colonoscopy History of bunionectomy Hx of cholecystectomy Social History Smoking Status: Never smoker Tobacco: How many years used: 30 how long ago did patient quit smokin years alcohol intake: never substance use type: does not use what type of physical activity do you participate in: none ROS Constitutional Constitutional: Reports chills; Denies fatigue or fever(s) Eyes Eyes: Denies blurry vision, change in vision or loss of vision ENT HEENT: Denies dysphagia, hearing loss or sore throat Cardiovascular Cardiovascular: Reports edema and leg edema; Denies chest pain or palpitations Respiratory/Chest Respiratory/Chest: Denies dry cough, dyspnea, dyspnea on exertion, productive cough or wheezing Gastrointestinal Gastrointestinal: Denies diarrhea, nausea or vomiting Genitourinary Genitourinary: Reports urinary incontinence; Denies dysuria or polyuria Musculoskeletal Musculoskeletal: Reports arthralgias, difficulty walking, extremity pain and joint stiffness; Denies muscle weakness Integumentary Integumentary: Reports erythema and wounds Neurologic Neurologic: Denies dizziness, memory loss or weakness Psychiatric Psychiatric: Denies homicidal ideation or suicidal ideation Endocrine Endocrinology: Denies polydipsia, polyphagia or polyuria Hematologic/Lymphatic Hematologic/Lymphatic: Denies easy bleeding or easy bruising Allergic/Immunologic Allergic/Immunologic: Denies throat swelling, tongue swelling or urticaria Vital Signs Vital Signs Vital Signs: 11/05/23 08:29 Temperature 95.5 F L Temperature Source Temporal Pulse Rate 86 Respiratory Rate 18 Blood Pressure 184/67 H Blood Pressure Mean 106 Blood Pressure Source Monitor Blood Pressure Position Semi-Fowlers Blood Pressure Location Left Arm Weight Weight: 143.789 kg Body Mass Index (BMI) 49.6 Physical Exam Const alert, oriented x3 and no apparent distress General Appearance: cooperative and comfortable Nutritional Appearance: obese HEENT normocephalic and head/scalp atraumatic Lymph Lymphatic: lymphedema severe and pitting Resp normal respiratory effort Effort and Inspection: able to speak in complete sentences Cardio regular rate and regular rhythm Extremity General Extremity: edema bilateral lower extremity Details: severe (with skin changes associated with lymphedema, thickened nodular appearance from mid allen to ankle) Skin General Skin Exam: erythema, venous stasis and dermatitis Wounds: wounds noted Wound Narrative: as in clinical panel Psych mental status grossly normal, thought process normal, cooperative and affect normal Debridement Note Debridement Note Wound debrided: right lower extremity Laterality: Right Type of Debridement: Selective debridement Anesthesia Used: 4% Lidocaine Solution Depth: Down to and including healthy tissue Percentage of wound debrided: 100 Instrument Used: - (gauze) Tissue Removed: Yellow slough, devitalized tissue Severity: Limited To Skin Breakdown Amount of bleeding with debridement: None Bleeding Controlled with: Pressure Patient tolerated procedure: Patient tolerated procedure well Post-Debridement Measurements and Additional Note: Post-Debridement Measurements/Treatment - Nurse 1 - General Ulcer Assessment Start: 11/05/23 08:29 Freq: Status: Active Protocol: KELSEY Activity Type Activity Date Activity User E-sign Co-sign Detail Recorded Client Recorded Date Recorded By Document 11/05/23 08:29 RB wound center 11/05/23 08:33 RB 11/05/23 08:29 - Today's Visit Information Type of service Initial Visit Arrival Mode Ambulatory Transfer Assistance None Patient Identification Verified (Name & Yes ) Patient Requires Transmission-Based No Precautions Height and Weight Height 5 ft 7 in Weight 143.789 kg Weight in Pounds 317.0 lbs Body Mass Index (BMI) 49.6 BMI Classification Obese BSA - Marie 2.46 Vital Signs Temperature (97.8 F-99.1 F) 95.5 F L Temperature Source Temporal Pulse Rate (60-100) 86 Pulse Location Monitor Respiratory Rate (12-18) 18 Respiratory rate source Observation Blood Pressure (90/60-120/80) 184/67 H Blood Pressure Mean 106 Source Monitor Position Semi-Fowlers Blood Pressure Location Left Arm Pain Scale: 0-10 Numeric Is Patient Pain Free? Yes BILAT LE -Description Aching -Intensity 8 -Duration (hours) Acute -Pain Behavior Irritability -Pain Aggravating Factors Exercise/ Activity -Alleviating Factors/Interventions Medication -Effectiveness of Alleviating Factor/ Moderately Intervention effective WC - Nurse 1 - General Ulcer Measurement Start: 11/05/23 08:29 Freq: Status: Active Protocol: Activity Type Activity Date Activity User E-sign Co-sign Detail Recorded Client Recorded Date Recorded By Document 11/05/23 08:29 RB wound center 11/05/23 08:33 RB 11/05/23 08:29 Wound Center Nurse 1 8. LLE lateral -Combined with other wound No -Current Size (cm) - Length 9 -Current Size (cm) - Width 9 -Current Size (cm) - Depth 0.1 -Total Square Cm 81 -Photo Taken Yes -Tunneling No -Undermining/Tunneling No -Circular Undermining No -Exudate Amt Large -Exudate Type Serosanguineous -Wound Margin Indistinct, Non -Visible -Granulation Amt Medium (34-66%) -Granulation Quality [place] -Necrosis Amt Medium (34-66%) -Necrotic Tissue Type Adherent Slough -Structure Exposed N/A -Texture (Adrianna-wound Skin Appearance) Assessed -Moisture (Adrianna-wound Skin Appearance) Weeping -Color (Adrianna-wound Skin Appearance) Assessed -Temperature (Adrianna-wound Skin No Abnormality Appearance) (Pt Warm) -Tenderness on Palpation (Adrianna-wound No Skin Appearance) -Ulcer Cleansing Wound Cleanser -Foul Odor after Cleansing No -Anesthetic Used 5% Lidocaine Gel 7. RLE lateral -Combined with other wound No -Current Size (cm) - Length 9.5 -Current Size (cm) - Width 8 -Current Size (cm) - Depth 0.1 -Total Square Cm 76.0 -Photo Taken Yes -Tunneling No -Undermining/Tunneling No -Circular Undermining No -Exudate Amt Large -Exudate Type Serosanguineous -Wound Margin Indistinct, Non -Visible -Granulation Amt Medium (34-66%) -Granulation Quality [place] -Slough/Fibrin Yes -Necrosis Amt Medium (34-66%) -Necrotic Tissue Type Adherent Slough -Structure Exposed N/A -Texture (Adrianna-wound Skin Appearance) Assessed -Moisture (Adrianna-wound Skin Appearance) Assessed, Weeping -Color (Adrianna-wound Skin Appearance) Assessed -Temperature (Adrianna-wound Skin No Abnormality Appearance) (Pt Warm) -Tenderness on Palpation (Adrianna-wound No Skin Appearance) -Ulcer Cleansing Wound Cleanser -Foul Odor after Cleansing No -Anesthetic Used 5% Lidocaine Gel Lower Limb Edema Present Yes Right Calf (cm) 56.5 Right Ankle (cm) 29.6 Left Calf (cm) 54 Left Ankle (cm) 29.5 WC - Nurse 2 - General Ulcer CM Notes Start: 11/05/23 08:29 Freq: Status: Active Protocol: Activity Type Activity Date Activity User E-sign Co-sign Detail Recorded Client Recorded Date Recorded By Document 11/05/23 08:47 wound center 11/05/23 09:00 11/05/23 08:47 Wound Center Nurse 2 8. LLE lateral -Time 08:59 -Correct Patient Yes -Correct Side, Site, Position Yes -Correct Procedure No -Procedure Performed No -Wound/Ulcer Outcome Not Healed -Wound Comment(s) cluster 3x4x01 7. RLE lateral -Time 09:00 -Correct Patient Yes -Correct Side, Site, Position Yes -Wound/Ulcer Outcome Not Healed -Wound Comment(s) cluster 5x4x0.1 Pain Scale: 0-10 Numeric Is Patient Pain Free? Yes - Nurse 3 - General Ulcer D/C NN Start: 11/05/23 08:29 Freq: Status: Active Protocol: Activity Type Activity Date Activity User E-sign Co-sign Detail Recorded Client Recorded Date Recorded By Document 11/05/23 10:01 RB [id number] 11/05/23 10:03 RB 11/05/23 10:01 Wound Care Center Nurse 3 8. LLE lateral -Ulcer Cleansing Rinsed/ Irrigated with Saline -Primary Dressing Applied Optilok 6.5x10 -Optilok 6.5x10 1 7. RLE lateral -Ulcer Cleansing Rinsed/ Irrigated with Saline -Primary Dressing Applied Optilok 6.5x10 -Optilok 6.5x10 1 -Wound Comment(s) SUPER ABSORBER APPLIED BETWEEN UNNA AND KERLIX LAYERS BILAT LE -Multi-Layered Wrap Application Unna Boot - Bilateral ($) Treatment Response Procedure Tolerated Well Pain Scale: 0-10 Numeric Is Patient Pain Free? Yes Teaching: Wound Center Control Swelling with Leg Elevation -Person Taught Patient -Teaching Method Discussion -Response to teaching Reinforcement needed Compression Wraps & Stockings -Person Taught Patient -Teaching Method Discussion -Response to teaching Verbalize understanding WC - Visit Discharge Discharge Condition Stable Ambulatory Status Ambulatory Transportation Private Auto Medication Reconcilliation completed & No provided to patient/care provider Clinical Summary of Care Provided Yes Lab / Micro Data Labs: Laboratory Results - last 24 hr 07/23/23 10:32: Prealbumin 17.8 L, TSH 2.99, Free T4 1.28, Free T3 pg/dL 2.2 Assessment/Plan Assessment/Plan (1) Debility: CODE(S): R53.81 - Other malaise (2) Osteoarthritis: CODE(S): M19.90 - Unspecified osteoarthritis, unspecified site QUALIFIERS: Osteoarthritis location: multiple joints Osteoarthritis type: primary Qualified Code(s): M15.9 - Polyosteoarthritis, unspecified (3) COPD (chronic obstructive pulmonary disease): CODE(S): J44.9 - Chronic obstructive pulmonary disease, unspecified QUALIFIERS: COPD type: unspecified COPD Qualified Code(s): J44.9 - Chronic obstructive pulmonary disease, unspecified (4) Edema of both lower extremities: CODE(S): R60.0 - Localized edema (5) Venous insufficiency: CODE(S): I87.2 - Venous insufficiency (chronic) (peripheral) (6) Chronic hypoxemic respiratory failure: CODE(S): J96.11 - Chronic respiratory failure with hypoxia (7) Pulmonary hypertension: CODE(S): I27.20 - Pulmonary hypertension, unspecified (8) Morbid obesity with BMI of 45.0-49.9, adult: CODE(S): E66.01 - Morbid (severe) obesity due to excess calories; Z68.42 - Body mass index [BMI] 45.0-49.9, adult (9) Lymphedema: CODE(S): I89.0 - Lymphedema, not elsewhere classified (10) Hypothyroidism: CODE(S): E03.9 - Hypothyroidism, unspecified QUALIFIERS: Hypothyroidism type: unspecified Qualified Code(s): E03.9 - Hypothyroidism, unspecified (11) Type 2 diabetes mellitus: CODE(S): E11.9 - Type 2 diabetes mellitus without complications QUALIFIERS: Diabetes mellitus residential insulin use: without director long term care use Diabetes mellitus complication status: with other specified complication Qualified Code(s): E11.69 - Type 2 diabetes mellitus with other specified complication (12) Chronic respiratory failure with hypoxia: CODE(S): J96.11 - Chronic respiratory failure with hypoxia (13) DOLORES (obstructive sleep apnea): CODE(S): G47.33 - Obstructive sleep apnea (adult) (pediatric) (14) Venous ulcer of right lower extremity without varicose veins: CODE(S): I87.2 - Venous insufficiency (chronic) (peripheral); L97.919 - Non-pressure chronic ulcer of unspecified part of right lower leg with unspecified severity PLAN: Plan Evaluation and examination performed today in clinic as annotated above. Chart reviewed for previous testing and history. At home wound-care instructions: Will try to improve her edema with compression using UNNA boots to bilateral LE. She has had these previously and tolerated them well. She was instructed to keep dressings clean and dry. Use a cast cover or sponge bath to avoid getting dressings wet. Off-loading: The patient was instructed to avoid pressure and friction on the affected areas. Reposition every 2 hours at minimum. Avoid prolonged standing and/or dangling of legs. When seated, feet should be elevated at chest level. Frequent ambulation is encouraged. Diet: Patient encouraged to increase protein intake while taking caution to avoid high carbohydrate and/or sugar intake. Encouraged weight loss. Labs/cultures/imaging: Will contact lymphedema pump agricultural sales representative and Vascular surgery office to follow up on ablation appointment and pumps. Lymphedema pumps are medically necessary to prevent future episodes of ulcers of lower extremities Encouraged her to get her CPAP mask to improve DOLORES and pulmonary HTN treatment compliance which is adding to her decompensated lymphedema. Follow-up: Return in 1 week for wound care follow up. Return sooner or report to the emergency room should symptoms worsen, or new symptoms arise. Note: [employer] speech recognition concrete fence builder software was used to create portions of this document. Sound-alike and misspelled words, as well as other concrete fence builder errors may be contained in the documentation.
--- NOTE | 2023-11-08 14:06 | WC ---
11/05/2023 (I) LEFT LOWER EXTREMITY
[2023-11-11 08:07] VITALS: BP 156/52; PULSE 75; RESP 18; TEMP 35.7; BMI 49.6
[2023-11-12 10:24] VITALS: BP 156/58; PULSE 75; RESP 20; TEMP 35.4; O2SAT 94; BMI 49.6
--- NOTE | 2023-11-12 14:06 | PCM.WC.PN ---
History of Present Illness Date of Service: 11/12/23 Chief Complaint: B/L LE ulcers, bilateral lower extremity swelling History of Wound: Liz is a pleasant 73 yo woman that presents to the wound center for bilateral lower extremity edema and blisters of her right lower leg with recent cellulitis. She was seen in the ER on 06/20/23 and diagnosed with increased edema and possible cellulitis. She was treated with Keflex and Bumetanide. Her edema has improved some but is still present and she continues to have pain and drainage and blisters of her right lower leg. She does have compression stockings but it is difficult for her to wear when her legs are more swollen and when they are painful. She tries to elevate her legs when she is sitting but is not always consistent with doing this. She has been wrapping her leg with gauze when it is seeping but otherwise has not been doing any regular dressings. Patient has been treated at the wound center in the past for similar wounds, most recently July 2023. She has also been seen in the vascular surgery clinic where she was evaluated her for BLE DVT and venous insufficiency. 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 GSV ablation has been considered and was planned but she did not hear from Vascular surgery regarding surgery date. She also has not received lymphedema pumps that were ordered during her last treatment course. They are awaiting approval from cardiology. Last venous study was 03/2022. Last A1C 01/2023 was 6.4%. Last TSH - 01/2022 Patient's medical history is also significant for CHF, COPD, T2DM, lymphedema. She has a CPAP but has not been using this due to needing a new mask. She states that a prescription was to be sent and she never received the mask. Her current mask has a hole in it. Subjective Subjective Liz returns for evaluation and treatment of bilateral lymphedema and ulcers of LE. She tolerated treatment with UNNA boot compression. She did come into wound center yesterday due to drainage being severe and had UNNA boots replaced with super absorbers for control of drainage. Wound culture was positive for MRSA, Pseudomonas and Proteus. She was started on antibiotic treatment with Bactrim and Cipro. She received pumps and they will be coming today to demonstrate use and make sure she is able to apply pumps and operate them. Objective Data Objective Data Vital Signs: Vital Signs Temp Pulse Resp BP Pulse Ox O2 Del Method 95.7 F L 75 20 H 156/58 H 94 Room Air 11/12/23 10:24 11/12/23 10:24 11/12/23 10:24 11/12/23 10:24 11/12/23 10:24 11/11/23 08:07 Oxygen Delivery Method Room Air Weight: 143.789 kg Body Mass Index (BMI) 49.6 Lab / Micro Data Micro: Microbiology 11/05/23 08:55 Wound - Leg, Right Gram Stain - Final 11/05/23 08:55 Wound - Leg, Right Wound Culture - Final Meth. resistant Staph. aureus Pseudomonas aeruginosa Proteus mirabilis 11/05/23 08:55 Wound - Leg, Right Anaerobic Culture - Final No anaerobic bacteria isolated. Physical Exam Const alert, oriented x3 and no apparent distress General Appearance: cooperative and comfortable Nutritional Appearance: obese HEENT normocephalic and head/scalp atraumatic Lymph Lymphatic: lymphedema severe and pitting Resp normal respiratory effort Effort and Inspection: able to speak in complete sentences Cardio regular rate and regular rhythm Extremity General Extremity: edema bilateral lower extremity Details: severe (with skin changes associated with lymphedema, thickened nodular appearance from mid allen to ankle) Skin General Skin Exam: erythema, venous stasis and dermatitis Wounds: wounds noted Wound Narrative: as in clinical panel Psych mental status grossly normal, thought process normal, cooperative and affect normal Debridement Note Debridement Note Wound debrided: right lower extremity Laterality: Right Type of Debridement: Selective debridement Anesthesia Used: 4% Lidocaine Solution Depth: Down to and including healthy tissue Percentage of wound debrided: 100 Instrument Used: - (gauze) Tissue Removed: Yellow slough, devitalized tissue Severity: Limited To Skin Breakdown Amount of bleeding with debridement: None Bleeding Controlled with: Pressure Patient tolerated procedure: Patient tolerated procedure well Post-Debridement Measurements and Additional Note: Post-Debridement Measurements/Treatment WC - Nurse 1 - General Ulcer Assessment Start: 11/05/23 08:29 Freq: Status: Active Protocol: KELSEY Activity Type Activity Date Activity User E-sign Co-sign Detail Recorded Client Recorded Date Recorded By Document 11/05/23 08:29 RB wound center 11/05/23 08:33 RB Document 11/11/23 08:07 KW wound center 11/11/23 08:24 KW Document 11/12/23 10:24 RB [facility] wound center 11/12/23 10:27 RB 11/05/23 11/11/23 11/12/23 08:29 08:07 10:24 - Today's Visit Information Type of service Initial Visit Nurse-only Follow-up Visit Visit (Physician/[facility] [employer] [facility] ) Arrival Mode Ambulatory Ambulatory Ambulatory Transfer Assistance None None Accompanied by Patient Identification Verified (Name & Yes Yes Yes ) Patient Requires Transmission-Based No No Precautions Height and Weight Height 5 ft 7 in Weight 143.789 kg Weight in Pounds 317.0 lbs Body Mass Index (BMI) 49.6 49.6 49.6 BMI Classification Obese Obese Obese BSA - Marie 2.46 Vital Signs Temperature (97.8 F-99.1 F) 95.5 F L 96.3 F L 95.7 F L Temperature Source Temporal Temporal Temporal Pulse Rate (60-100) 86 75 75 Pulse Location Monitor Monitor Monitor Respiratory Rate (12-18) 18 18 20 H Respiratory rate source Observation Observation Observation Pulse Oximetry 94 Oxygen Delivery Method Room Air Blood Pressure (90/60-120/80) 184/67 H 156/52 H 156/58 H Blood Pressure Mean (mm Hg) 106 86 90 Source Monitor Monitor Monitor Position Semi-Fowlers Semi-Fowlers Semi-Fowlers Blood Pressure Location Left Arm Left Forearm Left Arm History Since Last Visit- (Skip if this is Patient's initial visit) Have you changed medications since your No No last visit? Any new allergies or adverse reactions No No Had a fall/change in ADL's that may No No increase risk of falls Signs or symptoms of abuse and/or No No neglect since last visit Have you been in the hospital since your No No last visit? Has dressing in place as prescribed Yes Yes Has compression in place as prescribed Yes Yes Has offloadiing in place as prescribed N/A No Experienced any changes in pain level or No No management Left Footwear Regular Shoe Right Footwear Regular Shoe Pain Scale: 0-10 Numeric Is Patient Pain Free? Yes Yes No BILAT LE -Description Aching Aching -Intensity 8 5 -Duration (hours) Acute Acute -Pain Behavior Irritability Irritability -Pain Aggravating Factors Exercise/ ADL's Activity -Alleviating Factors/Interventions Medication Medication -Effectiveness of Alleviating Factor/ Moderately Moderately Intervention effective effective - Nurse 1 - General Ulcer Measurement Start: 11/05/23 08:29 Freq: Status: Active Protocol: Activity Type Activity Date Activity User E-sign Co-sign Detail Recorded Client Recorded Date Recorded By Document 11/05/23 08:29 RB wound center 11/05/23 08:33 RB Document 11/12/23 10:24 [facility] wound center 11/12/23 10:27 RB 11/05/23 11/12/23 08:29 10:24 Wound Center Nurse 1 8. LLE lateral -Combined with other wound No No -Current Size (cm) - Length 9 10.5 -Current Size (cm) - Width 9 9.5 -Current Size (cm) - Depth 0.1 0.1 -Total Square Cm 81 99.75 -Photo Taken Yes -Tunneling No No -Undermining/Tunneling No No -Circular Undermining No No -Exudate Amt Large Large -Exudate Type Serosanguineous Serosanguineous -Wound Margin Indistinct, Non Distinct, -Visible Outline Attached -Granulation Amt Medium (34-66%) Medium (34-66%) -Granulation Quality [place] Hart[place] -Slough/Fibrin Yes -Necrosis Amt Medium (34-66%) Medium (34-66%) -Necrotic Tissue Type Adherent Slough Adherent Slough -Structure Exposed N/A N/A -Texture (Adrianna-wound Skin Appearance) Assessed Assessed -Moisture (Adrianna-wound Skin Appearance) Weeping Assessed, Weeping -Color (Adrianna-wound Skin Appearance) Assessed Assessed -Temperature (Adrianna-wound Skin No Abnormality No Abnormality Appearance) (Pt Warm) (Pt Warm) -Tenderness on Palpation (Adrianna-wound No No Skin Appearance) -Ulcer Cleansing Wound Cleanser Wound Cleanser -Foul Odor after Cleansing No No -Anesthetic Used 5% Lidocaine 5% Lidocaine Gel Gel 7. RLE lateral -Combined with other wound No No -Current Size (cm) - Length 9.5 10 -Current Size (cm) - Width 8 11.5 -Current Size (cm) - Depth 0.1 0.1 -Total Square Cm 76.0 115.0 -Photo Taken Yes -Tunneling No No -Undermining/Tunneling No No -Circular Undermining No No -Exudate Amt Large Large -Exudate Type Serosanguineous Serosanguineous -Wound Margin Indistinct, Non Distinct, -Visible Outline Attached -Granulation Amt Medium (34-66%) Medium (34-66%) -Granulation Quality Hart[place] Hartington -Slough/Fibrin Yes Yes -Necrosis Amt Medium (34-66%) Medium (34-66%) -Necrotic Tissue Type Adherent Slough Adherent Slough -Structure Exposed N/A N/A -Texture (Adrianna-wound Skin Appearance) Assessed Assessed -Moisture (Adrianna-wound Skin Appearance) Assessed, Weeping Weeping -Color (Adrianna-wound Skin Appearance) Assessed Assessed -Temperature (Adrianna-wound Skin No Abnormality No Abnormality Appearance) (Pt Warm) (Pt Warm) -Tenderness on Palpation (Adrianna-wound No No Skin Appearance) -Ulcer Cleansing Wound Cleanser Wound Cleanser -Foul Odor after Cleansing No No -Anesthetic Used 5% Lidocaine 5% Lidocaine Gel Gel Lower Limb Edema Present Yes Yes Right Calf (cm) 56.5 52.5 Right Ankle (cm) 29.6 29.5 Left Calf (cm) 54 54.5 Left Ankle (cm) 29.5 29.5 WC - Nurse 2 - General Ulcer CM Notes Start: 11/05/23 08:29 Freq: Status: Active Protocol: Activity Type Activity Date Activity User E-sign Co-sign Detail Recorded Client Recorded Date Recorded By Document 11/05/23 08:47 wound center 11/05/23 09:00 GM Document 11/12/23 11:05 [facility] 11/12/23 11:07 11/05/23 11/12/23 08:47 11:05 Wound Center Nurse 2 8. LLE lateral -Time 08:59 11:06 -Correct Patient Yes Yes -Correct Side, Site, Position Yes Yes -Correct Procedure No -Procedure Performed No -Wound/Ulcer Outcome Not Healed -Wound Comment(s) cluster 3x4x01 burst blisters 7. RLE lateral -Time 09:00 11:06 -Correct Patient Yes Yes -Correct Side, Site, Position Yes Yes -Wound/Ulcer Outcome Not Healed -Wound Comment(s) cluster 5x4x0.1 burst blisters Pain Scale: 0-10 Numeric Is Patient Pain Free? Yes Yes WC - Nurse 3 - General Ulcer D/C NN Start: 11/05/23 08:29 Freq: Status: Active Protocol: Activity Type Activity Date Activity User E-sign Co-sign Detail Recorded Client Recorded Date Recorded By Document 11/05/23 10:01 RB [id number] 11/05/23 10:03 RB Document 11/11/23 08:07 KW wound center 11/11/23 08:24 KW Document 11/12/23 13:41 RB [facility] wound center 11/12/23 13:43 RB 11/05/23 11/11/23 11/12/23 10:01 08:07 13:41 Wound Care Center Nurse 3 8. LLE lateral -Ulcer Cleansing Rinsed/ Soap and Water Irrigated with Saline -Primary Dressing Applied Optilok 6.5x10 Optilok 6.5x10, Optilok 8x12 Optilok 8x12 -Primary Dressing Covered/Secured with Dry Gauze & Roll Gauze, Secured with Tape -Optilok 6.5x10 1 1 -Optilok 8x12 1 1 7. RLE lateral -Ulcer Cleansing Rinsed/ Irrigated with Saline -Primary Dressing Applied Optilok 6.5x10 Optilok 6.5x10, Optilok 8x12 Optilok 8x12 -Primary Dressing Covered/Secured with Other Dry Gauze & Roll Gauze, Secured with Tape -Other Covering roll gauze -Optilok 6.5x10 1 2 -Optilok 8x12 2 1 -Wound Comment(s) SUPER ABSORBER APPLIED BETWEEN UNNA AND KERLIX LAYERS BILAT LE -Lotion applied to leg before No compression wrap -Multi-Layered Wrap Application Unna Boot - Unna Boot - Multi-Layer Bilateral ($) Bilateral ($) Comp - Bilat ($ ) Treatment Response Procedure Tolerated Well Vital Signs Temperature (97.8 F-99.1 F) 96.3 F L Temperature Source Temporal Pulse Rate (60-100) 75 Pulse Location Monitor Respiratory Rate (12-18) 18 Respiratory rate source Observation Oxygen Delivery Method Room Air Blood Pressure (90/60-120/80) 156/52 H Blood Pressure Mean (mm Hg) 86 Source Monitor Position Semi-Fowlers Blood Pressure Location Left Forearm Pain Scale: 0-10 Numeric Is Patient Pain Free? Yes Yes No BILAT LE -Description Aching -Intensity 3 -Pain Behavior Irritability -Pain Aggravating Factors Exercise/ Activity -Alleviating Factors/Interventions Medication -Effectiveness of Alleviating Factor/ Moderately Intervention effective Teaching: Wound Center Control Swelling with Leg Elevation -Person Taught Patient Patient -Teaching Method Discussion Discussion -Response to teaching Reinforcement Verbalize needed understanding Compression Wraps & Stockings -Person Taught Patient -Teaching Method Discussion -Response to teaching Verbalize understanding WC - Visit Discharge Discharge Condition Stable Stable Stable Ambulatory Status Ambulatory Ambulatory Ambulatory Transportation Private Auto Private Auto Private Auto Medication Reconcilliation completed & No No provided to patient/care provider Clinical Summary of Care Provided Yes Yes Additional Wound Wound debrided: left lateral LE Laterality: Left Type of Debridement: Selective debridement Anesthesia Used: 4% Lidocaine Solution Depth: Down to and including healthy tissue Percentage of wound debrided: 100 Instrument Used: - (gauze) Tissue Removed: Yellow slough, devitalized tissue Severity: Fat Layer Exposed Amount of bleeding with debridement: Mild Bleeding Controlled with: Compression and gauze Patient tolerated procedure: Patient tolerated procedure well Assessment/Plan Assessment/Plan (1) Debility: CODE(S): R53.81 - Other malaise (2) Osteoarthritis: CODE(S): M19.90 - Unspecified osteoarthritis, unspecified site QUALIFIERS: Osteoarthritis location: multiple joints Osteoarthritis type: primary Qualified Code(s): M15.9 - Polyosteoarthritis, unspecified (3) COPD (chronic obstructive pulmonary disease): CODE(S): J44.9 - Chronic obstructive pulmonary disease, unspecified QUALIFIERS: COPD type: unspecified COPD Qualified Code(s): J44.9 - Chronic obstructive pulmonary disease, unspecified (4) Edema of both lower extremities: CODE(S): R60.0 - Localized edema (5) Venous insufficiency: CODE(S): I87.2 - Venous insufficiency (chronic) (peripheral) (6) Chronic hypoxemic respiratory failure: CODE(S): J96.11 - Chronic respiratory failure with hypoxia (7) Pulmonary hypertension: CODE(S): I27.20 - Pulmonary hypertension, unspecified (8) Morbid obesity with BMI of 45.0-49.9, adult: CODE(S): E66.01 - Morbid (severe) obesity due to excess calories; Z68.42 - Body mass index [BMI] 45.0-49.9, adult (9) Lymphedema: CODE(S): I89.0 - Lymphedema, not elsewhere classified (10) Hypothyroidism: CODE(S): E03.9 - Hypothyroidism, unspecified QUALIFIERS: Hypothyroidism type: unspecified Qualified Code(s): E03.9 - Hypothyroidism, unspecified (11) Type 2 diabetes mellitus: CODE(S): E11.9 - Type 2 diabetes mellitus without complications QUALIFIERS: Diabetes mellitus [facility] insulin use: without [facility] use Diabetes mellitus complication status: with other specified complication Qualified Code(s): E11.69 - Type 2 diabetes mellitus with other specified complication (12) DOLORES (obstructive sleep apnea): CODE(S): G47.33 - Obstructive sleep apnea (adult) (pediatric) (13) Venous ulcer of right lower extremity without varicose veins: CODE(S): I87.2 - Venous insufficiency (chronic) (peripheral); L97.919 - Non-pressure chronic ulcer of unspecified part of right lower leg with unspecified severity PLAN: Plan Evaluation and examination performed today in clinic as annotated above. Chart reviewed for previous testing and history. At home wound-care instructions: Edema is much improved and will continue treatment with 3M compression and super absorbers for heavy drainage to bilateral LE. She has had these previously and tolerated them well. She was instructed to keep dressings clean and dry. Use a cast cover or sponge bath to avoid getting dressings wet. Will have her use lymphedema pumps for 60 minutes 2-3 times daily. Off-loading: The patient was instructed to avoid pressure and friction on the affected areas. Reposition every 2 hours at minimum. Avoid prolonged standing and/or dangling of legs. When seated, feet should be elevated at chest level. Frequent ambulation is encouraged. Diet: Patient encouraged to increase protein intake while taking caution to avoid high carbohydrate and/or sugar intake. Encouraged weight loss. Labs/cultures/imaging: Vascular surgery procedure scheduled for 12/06/23. Encouraged her to get her CPAP mask to improve DOLORES and pulmonary HTN treatment compliance which is adding to her decompensated lymphedema. Follow-up: Return in 2 weeks for wound care follow up. Return sooner or report to the emergency room should symptoms worsen, or new symptoms arise. Note: [employer] speech recognition carding machine operator software was used to create portions of this document. Sound-alike and misspelled words, as well as other carding machine operator errors may be contained in the documentation.
[2023-11-19 08:06] VITALS: BP 153/40; PULSE 70; RESP 22; TEMP 35.5; BMI 49.6
== END 2023-11-19 23:59 | disposition home or self-care (01) ==
LOC: WC 08:00
PROVIDERS: PCP Internal Medicine; Referring Provider Internal Medicine; Visit Provider Family Medicine
DX: E11.622 Type 2 diabetes mellitus with other skin ulcer (principal); L97.811 Non-pressure chronic ulcer of other part of right lower leg limited to breakdown of skin; L97.822 Non-pressure chronic ulcer of other part of left lower leg with fat layer exposed; J96.11 Chronic respiratory failure with hypoxia; I11.0 Hypertensive heart disease with heart failure; I27.20 Pulmonary hypertension, unspecified; I50.9 Heart failure, unspecified; J44.9 Chronic obstructive pulmonary disease, unspecified; E66.01 Morbid (severe) obesity due to excess calories; Z68.42 Body mass index [BMI] 45.0-49.9, adult; E11.40 Type 2 diabetes mellitus with diabetic neuropathy, unspecified; E11.59 Type 2 diabetes mellitus with other circulatory complications; I87.2 Venous insufficiency (chronic) (peripheral); Z79.51 Long term (current) use of inhaled steroids; Z79.52 Long term (current) use of systemic steroids; I89.0 Lymphedema, not elsewhere classified; R53.81 Other malaise; G47.33 Obstructive sleep apnea (adult) (pediatric); E03.9 Hypothyroidism, unspecified; E78.5 Hyperlipidemia, unspecified; Z79.899 Other long term (current) drug therapy; R60.0 Localized edema; M19.90 Unspecified osteoarthritis, unspecified site; Z79.890 Hormone replacement therapy
CPT/HCPCS: 29580; 29581; 87070; 87075; 87077; 87186; 87205; 99213; G0463

== ENCOUNTER 2023-11-26 09:12 | Outpatient (RCR) | payer MEDICARE, MEDICAID, SELFPAY ==
[2023-11-20 01:30] VITALS: BP 160/93; PULSE 83; RESP 18; TEMP 36.4; O2SAT 94; BMI 49.8
[2023-11-26 09:20] VITALS: BP 182/43; PULSE 78; RESP 18; TEMP 36.2; BMI 49.8
--- NOTE | 2023-11-26 13:49 | PN.PCM_ITS ---
History of Present Illness Date of Service: 11/26/23 Chief Complaint: B/L LE ulcers, bilateral lower extremity swelling History of Wound: Liz is a pleasant 73 yo woman that presents to the wound center for bilateral lower extremity edema and blisters of her right lower leg with recent cellulitis. She was seen in the ER on 06/20/23 and diagnosed with increased edema and possible cellulitis. She was treated with Keflex and Bumetanide. Her edema has improved some but is still present and she continues to have pain and drainage and blisters of her right lower leg. She does have compression stockings but it is difficult for her to wear when her legs are more swollen and when they are painful. She tries to elevate her legs when she is sitting but is not always consistent with doing this. She has been wrapping her leg with gauze when it is seeping but otherwise has not been doing any regular dressings. Patient has been treated at the wound center in the past for similar wounds, most recently July 2023. She has also been seen in the vascular surgery clinic where she was evaluated her for BLE DVT and venous insufficiency. 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 GSV ablation has been considered and was planned but she did not hear from Vascular surgery regarding surgery date. She also has not received lymphedema pumps that were ordered during her last treatment course. They are awaiting approval from cardiology. Last venous study was 03/2022. Last A1C 01/2023 was 6.4%. Last TSH - 01/2022 Patient's medical history is also significant for CHF, COPD, T2DM, lymphedema. She has a CPAP but has not been using this due to needing a new mask. She states that a prescription was to be sent and she never received the mask. Her current mask has a hole in it. Subjective Subjective Liz returns for evaluation and treatment of bilateral lymphedema and ulcers of LE. She tolerated treatment with UNNA boot compression. She has no further open areas on her lower legs. She completed antibiotic treatment with Bactrim and Cipro. She received pumps and has been using them 2-3 times/day. Objective Data Objective Data Vital Signs: Vital Signs Temp Pulse Resp BP Pulse Ox O2 Del Method 97.1 F L 78 18 182/43 H 94 Room Air 11/26/23 09:20 11/26/23 09:20 11/26/23 09:20 11/26/23 09:20 11/20/23 01:30 11/26/23 09:20 Oxygen Delivery Method Room Air Weight: 140.16 kg Body Mass Index (BMI) 49.8 Physical Exam Const alert, oriented x3 and no apparent distress General Appearance: cooperative and comfortable Nutritional Appearance: obese HEENT normocephalic and head/scalp atraumatic Lymph Lymphatic: lymphedema severe and pitting Resp normal respiratory effort Effort and Inspection: able to speak in complete sentences Cardio regular rate and regular rhythm Extremity General Extremity: edema bilateral lower extremity Details: severe (with skin changes associated with lymphedema, thickened nodular appearance from mid allen to ankle) Skin General Skin Exam: erythema, venous stasis and dermatitis Wounds: wounds noted Wound Narrative: as in clinical panel Psych mental status grossly normal, thought process normal, cooperative and affect normal Debridement Note Debridement Note No debridement was completed: No debridement was completed today Post-Debridement Measurements and Additional Note: Post-Debridement Measurements/Treatment - Nurse 1 - General Ulcer Assessment Start: 11/26/23 09:20 Freq: Status: Active Protocol: WC.JULIAN Activity Type Activity Date Activity User E-sign Co-sign Detail Recorded Client Recorded Date Recorded By Document 11/26/23 09:20 wound center 11/26/23 09:34 KW 11/26/23 09:20 - Today's Visit Information Type of service Follow-up Visit (Physician/[employer] UP OPERATOR VERTICAL ) Arrival Mode Ambulatory Patient Identification Verified (Name & Yes ) Height and Weight Body Mass Index (BMI) 49.8 BMI Classification Obese Vital Signs Temperature (97.8 F-99.1 F) 97.1 F L Temperature Source Temporal Pulse Rate (60-100) 78 Pulse Location Monitor Respiratory Rate (12-18) 18 Respiratory rate source Observation Oxygen Delivery Method Room Air Blood Pressure (90/60-120/80) 182/43 H Blood Pressure Mean (mm Hg) 89 Source Monitor Position Semi-Fowlers Blood Pressure Location Left Arm History Since Last Visit- (Skip if this is Patient's initial visit) Have you changed medications since your No last visit? Any new allergies or adverse reactions No Had a fall/change in ADL's that may No increase risk of falls Signs or symptoms of abuse and/or No neglect since last visit Have you been in the hospital since your No last visit? Has dressing in place as prescribed Yes Has compression in place as prescribed Yes Has offloadiing in place as prescribed N/A Experienced any changes in pain level or No management Left Footwear Regular Shoe Right Footwear Regular Shoe Pain Scale: 0-10 Numeric Is Patient Pain Free? Yes - Nurse 1 - General Ulcer Measurement Start: 11/26/23 09:20 Freq: Status: Active Protocol: Activity Type Activity Date Activity User E-sign Co-sign Detail Recorded Client Recorded Date Recorded By Document 11/26/23 09:20 wound center 11/26/23 09:34 11/26/23 09:20 Wound Center Nurse 1 Right Calf (cm) 57 Right Ankle (cm) 29 Left Calf (cm) 56 Left Ankle (cm) 29 - Nurse 2 - General Ulcer CM Notes Start: 11/26/23 09:20 Freq: Status: Active Protocol: Activity Type Activity Date Activity User E-sign Co-sign Detail Recorded Client Recorded Date Recorded By Document 11/26/23 09:38 [facility] 11/26/23 09:43 11/26/23 09:38 Wound Center Nurse 2 8. LLE lateral -Time 09:39 -Correct Patient Yes -Correct Side, Site, Position Yes -Wound/Ulcer Outcome Healed- Epithelialized Pain Scale: 0-10 Numeric Is Patient Pain Free? Yes - Nurse 3 - General Ulcer D/C NN Start: 11/26/23 09:20 Freq: Status: Active Protocol: Activity Type Activity Date Activity User E-sign Co-sign Detail Recorded Client Recorded Date Recorded By Document 11/26/23 09:53 wound center 11/26/23 10:02 11/26/23 09:53 Wound Care Center Nurse 3 BILAT LE -Tubular Bandage Double Layer -Size of Tubigrip Used Size F -Size F ($) 2 Pain Scale: 0-10 Numeric Is Patient Pain Free? Yes - Visit Discharge Discharge Condition Stable Ambulatory Status Ambulatory Transportation Private Auto Medication Reconcilliation completed & No provided to patient/care provider Clinical Summary of Care Provided Yes Assessment/Plan Assessment/Plan (1) Debility: CODE(S): R53.81 - Other malaise (2) Osteoarthritis: CODE(S): M19.90 - Unspecified osteoarthritis, unspecified site QUALIFIERS: Osteoarthritis location: multiple joints Osteoarthritis type: primary Qualified Code(s): M15.9 - Polyosteoarthritis, unspecified (3) COPD (chronic obstructive pulmonary disease): CODE(S): J44.9 - Chronic obstructive pulmonary disease, unspecified QUALIFIERS: COPD type: unspecified COPD Qualified Code(s): J44.9 - Chronic obstructive pulmonary disease, unspecified (4) Edema of both lower extremities: CODE(S): R60.0 - Localized edema (5) Venous insufficiency: CODE(S): I87.2 - Venous insufficiency (chronic) (peripheral) (6) Chronic hypoxemic respiratory failure: CODE(S): J96.11 - Chronic respiratory failure with hypoxia (7) Pulmonary hypertension: CODE(S): I27.20 - Pulmonary hypertension, unspecified (8) Morbid obesity with BMI of 45.0-49.9, adult: CODE(S): E66.01 - Morbid (severe) obesity due to excess calories; Z68.42 - Body mass index [BMI] 45.0-49.9, adult (9) Lymphedema: CODE(S): I89.0 - Lymphedema, not elsewhere classified (10) Hypothyroidism: CODE(S): E03.9 - Hypothyroidism, unspecified QUALIFIERS: Hypothyroidism type: unspecified Qualified Code(s): E03.9 - Hypothyroidism, unspecified (11) Type 2 diabetes mellitus: CODE(S): E11.9 - Type 2 diabetes mellitus without complications QUALIFIERS: Diabetes mellitus correction insulin use: without watermaster use Diabetes mellitus complication status: with other specified complication Qualified Code(s): E11.69 - Type 2 diabetes mellitus with other specified complication (12) DOLORES (obstructive sleep apnea): CODE(S): G47.33 - Obstructive sleep apnea (adult) (pediatric) (13) Venous ulcer of right lower extremity without varicose veins: CODE(S): I87.2 - Venous insufficiency (chronic) (peripheral); L97.919 - Non-pressure chronic ulcer of unspecified part of right lower leg with unspecified severity PLAN: Plan Evaluation and examination performed today in clinic as annotated above. Chart reviewed for previous testing and history. At home wound-care instructions: Edema is much improved and will continue treatment with 3M compression and super absorbers for heavy drainage to bilateral LE. She has had these previously and tolerated them well. She was instructed to keep dressings clean and dry. Use a cast cover or sponge bath to avoid getting dressings wet. Will have her use lymphedema pumps for 60 minutes 2-3 times daily. Off-loading: The patient was instructed to avoid pressure and friction on the affected areas. Reposition every 2 hours at minimum. Avoid prolonged standing and/or dangling of legs. When seated, feet should be elevated at chest level. Frequent ambulation is encouraged. Diet: Patient encouraged to increase protein intake while taking caution to avoid high carbohydrate and/or sugar intake. Encouraged weight loss. Labs/cultures/imaging: Vascular surgery procedure scheduled for 12/06/23. Encouraged her to get her CPAP mask to improve DOLORES and pulmonary HTN treatment compliance which is adding to her decompensated lymphedema. Follow-up: Will discharge her from treatment and will be happy to see her in the future if needed. Return sooner or report to the emergency room should symptoms worsen, or new symptoms arise. Note: [employer] speech recognition filtration operator software was used to create portions of this document. Sound-alike and misspelled words, as well as other filtration operator errors may be contained in the documentation.
== END 2023-12-19 23:59 | disposition home or self-care (01) ==
LOC: WC 09:12
PROVIDERS: PCP Internal Medicine; Referring Provider Internal Medicine; Visit Provider Family Medicine
DX: I87.2 Venous insufficiency (chronic) (peripheral) (principal); J96.11 Chronic respiratory failure with hypoxia; I50.9 Heart failure, unspecified; I27.20 Pulmonary hypertension, unspecified; J44.9 Chronic obstructive pulmonary disease, unspecified; E66.01 Morbid (severe) obesity due to excess calories; Z68.42 Body mass index [BMI] 45.0-49.9, adult; E11.9 Type 2 diabetes mellitus without complications; I89.0 Lymphedema, not elsewhere classified; R60.0 Localized edema; M15.9 Polyosteoarthritis, unspecified; R53.81 Other malaise; Z79.01 Long term (current) use of anticoagulants; E03.9 Hypothyroidism, unspecified; G47.33 Obstructive sleep apnea (adult) (pediatric); Z86.718 Personal history of other venous thrombosis and embolism
CPT/HCPCS: 99213; G0463

== ENCOUNTER 2024-01-20 07:41 | Day surgery (SDC) | payer MEDICARE, MEDICAID, SELFPAY ==
[2024-01-19 10:38] VITALS: BMI 49.3
[2024-01-20 08:08] LABS: Hematocrit 43.9 % (37-47); Hemoglobin 13.9 g/dL (12.0-15.0); Mean Corp Hgb Conc 31.7 g/dL (32-36); Mean Corpuscular Hgb 26.6 pg (27.0-32.0); Mean Corpuscular Volume 84.1 fL (81-99); Mean Platelet Vol. 9.2 fl (6.2-12.0); Platelet Count 199 K/mm3 (150-450); RBC Distribution Width CV 14.8 % (11.6-14.6); RBC Distribution Width SD 45.3 fl (35.1-43.9); Red Blood Count 5.22 M/mm3 (4.2-5.4); White Blood Count 8.7 K/mm3 (4.4-11.0)
[2024-01-20 08:18] LABS: Anion Gap 5 (5-15); BUN 19 mg/dL (7-18); BUN/Creat Ratio 20.1 RATIO (10-20); Calcium,Total 9.2 mg/dL (8.5-10.1); Chloride 106 mmol/L (98-107); Creatinine, Serum 0.95 mg/dL (0.55-1.02); EST Glomerular Filtration Rate 61 mL/min (>60); Est Glom Filt Rate - Afr Amer 74 mL/min (>60); Estimated Creatinine Clearance 77.19 ml/min; Glucose 145 mg/dL (74-106); Potassium 3.8 mmol/L (3.5-5.1); Sodium Level 140 mmol/L (136-145)
--- NOTE | 2024-01-20 10:40 | HP.PCM_ITS ---
HPI - General HPI Narrative JERRY BRO, is a 73 F who presents with RLE chronic wounds, edema. Currently healed but with significant skin thickening of medial lower leg. [facility] Medical History Colon cancer screening Debility Osteoarthritis Left knee pain Shingles Urinary incontinence with continuous leakage Gastric ulcer Wears glasses Wears dentures Depression Alcohol use Blister Diabetes Walker as ambulation aid Bladder disease DVT (deep venous thrombosis) Easy bruising Back pain Syncope Dietary restriction Constipation Difficulty swallowing Former smoker CPAP (continuous positive airway pressure) dependence On home oxygen therapy Shortness of breath on exertion Neuropathy Leg cramps History of pain when walking History of edema Hypertension History of CHF (congestive heart failure) History of echocardiogram Cardiology follow-up encounter Hx of cyst of breast Abdominal pain Secondary pulmonary arterial hypertension Hyperlipidemia Left ventricular hypertrophy DVT, bilateral lower limbs Health care maintenance Dermatitis Sore throat Essential hypertension Morbid obesity with BMI of 45.0-49.9, adult Inactivity Lymphedema Asthma GERD (gastroesophageal reflux disease) Ulcer of right lower extremity Difficulty swallowing Depression Type 2 diabetes mellitus Chronic respiratory failure with hypoxia DOLORES (obstructive sleep apnea) Hypothyroidism Pneumonia due to COVID-19 virus (01/30/21) Diabetes mellitus type 2 in obese COPD (chronic obstructive pulmonary disease) Home Medications ?Medication ?Instructions ?Recorded ?Last Taken ?Type fenofibrate nanocrystallized 48 mg 48 mg PO DAILY 05/07/21 Unknown History tablet calcium carb 300 mg-D3 20 mcg-mag 1 tab PO DAILY 06/09/21 Unknown History ox 25 mg-news copy editor 0.5 [id number] tablet (Caltrate-D3 Plus Minerals) Nebulizer #1 ea 10/06/21 Unknown Rx docusate sodium 100 mg capsule 100 mg PO BID 06/04/22 Unknown History (Stool Softener) furosemide 40 mg tablet 40 mg PO BID HEART FAILURE #180 09/04/22 Unknown Rx tabs Handicap Placard #1 ea 11/02/22 Unknown Rx Bedside Commode #1 ea 02/11/23 Unknown Rx walker (Ultra-Light Rollator misc) #1 ea 02/11/23 Unknown Rx levothyroxine 100 mcg tablet See Rx Instructions .Route 04/28/23 01/20/24 Rx .COMPLEX #90 tabs atorvastatin 40 mg tablet 40 mg PO QHS 06/20/23 Unknown History pantoprazole 40 mg tablet,delayed 40 mg PO DAILY 06/20/23 Unknown History release albuterol sulfate 90 mcg/actuation 2 inh inhalation Q4H PRN shortness 09/24/23 Unknown Rx breath activated powder inhaler of breath or wheezing #1 ea fluticasone fur. 200 mcg-umeclid 1 inh inhalation DAILY #60 ea 11/18/23 Unknown Rx 62.5 mcg-vilant 25 mcg inhalat.powder (Trelegy Ellipta) Cpap Supplies #1 ea 12/03/23 Unknown Rx walker (Ultra-Light Rollator misc) #1 ea 12/14/23 Unknown Rx carvedilol 25 mg tablet 25 mg PO BID #180 tabs 12/19/23 01/20/24 Rx oxybutynin chloride 5 mg tablet 5 mg PO BID bladder #180 tabs 12/19/23 Unknown Rx albuterol sulfate 90 mcg/actuation 2 puff inhalation Q6H PRN PRN for 01/07/24 Unknown Rx aerosol inhaler wheezing #8.5 ea Allergy/AdvReac Type Severity Reaction Status Date / Time metformin AdvReac Intermediate Other Verified 12/03/23 09:35 aspirin AdvReac Abd Verified 12/03/23 09:35 cramps/diarrhea codeine AdvReac Abd Verified 12/03/23 09:35 cramps/diarrhea Penicillins AdvReac Hives Verified 12/03/23 09:35 Family History Grandfather Cancer Daughter Ovarian cancer Brother Diabetes Kidney disease Surgical History History of esophagogastroduodenoscopy (EGD) Hx of colonoscopy History of bunionectomy Hx of cholecystectomy Social History Smoking Status: Former smoker Tobacco: How many years used: 30 how long ago did patient quit smokin years alcohol intake: never substance use type: does not use what type of physical activity do you participate in: none ROS Constitutional Constitutional: Denies chills, fever(s), frequent falls, lethargy or weakness Eyes Eyes: Denies blind spots, change in vision or loss of vision ENT HEENT: Denies bleeding gums, hoarseness or sore throat Cardiovascular Cardiovascular: Denies abdominal pain, bluish discoloration of hand/feet, chest pain with activity, claudication, cold extremities, cyanosis, dyspnea on exertion, erythema on extremities, irregular heart rhythm, leg edema, leg ulcers, numbness in extremities or weakness in extremities Respiratory/Chest Respiratory/Chest: Denies cough, excessive phlegm production, shortness of breath at rest, shortness of breath with exertion or wheezing Gastrointestinal Gastrointestinal: Denies anorexia, change in stool character, constipation, diarrhea, melena or rectal bleeding Genitourinary Genitourinary: Denies dysuria or hematuria Musculoskeletal Musculoskeletal: Denies abnormal gait Integumentary Integumentary: Reports other Details: ; Denies erythema, non-healing lesions or wounds Neurologic Neurologic: Denies abnormal speech, focal weakness, headache(s), loss of vision, numbness, paresthesias or sensory deficit Hematologic/Lymphatic Hematologic/Lymphatic: Denies easy bleeding, easy bruising or lymphadenopathy Vital Signs Vital Signs Vital Signs: Weight Weight: 315 lb Body Mass Index (BMI) 49.3 Physical Exam Const alert, oriented x3, no apparent distress and healthy appearing General Appearance: cooperative; Negative for combative or lethargic Orientation / Consciousness: awake Exam Limitations: no limitations HEENT Head and Scalp: normocephalic and atraumatic Eyes EOMs intact bilaterally General Eye: normal appearance of both eyes Neck full ROM, no lymphadenopathy, thyroid normal and No no carotid bruits General: trachea midline; Negative for lymphadenopathy or tenderness Thyroid: thyroid normal Lymph Lymphatic: Negative for no lymphadenopathy noted Resp normal respiratory effort, no use of accessory muscles and clear to auscultation bilaterally Effort and Inspection: Negative for labored, stridor or audible wheezes Cardio regular rate and regular rhythm Back/Spine Cervical Spine: cervical ROM normal Extremity full ROM, normal capillary refill and no clubbing, cyanosis or edema Skin no rashes or lesions noted and no wounds Neuro oriented x3, CN's II-XII intact bilaterally, no focal motor deficits and no sensory deficits noted Psych thought process normal, cooperative, affect normal, speech normal and activity/motor behavior normal Results Lab / Micro Data 01/20/24 07:53 01/20/24 07:53 Labs: Laboratory Results - last 24 hr 01/20/24 07:53: WBC 8.7, RBC 5.22, Hgb 13.9, Hct 43.9, MCV 84.1, MCH 26.6 L, M CHC 31.7 L, RDW Std Deviation 45.3 H, RDW Coeff of Mike 14.8 H, Plt Count 199, MPV 9.2, Sodium 140, Potassium 3.8, Chloride 106, Carbon Dioxide 29.0, Anion Gap 5, BUN 19 H, Creatinine 0.95, Estim Creat Clear Calc 77.19, Est GFR (MDRD) Af Amer 74, Est GFR (MDRD) Non-Af 61, BUN/Creatinine Ratio 20.1 H, Glucose 145 H, Calcium 9.2 Assessment & Plan Assessment/Plan (1) Venous ulcer of right lower extremity without varicose veins: PLAN: -right GSV ablation
--- NOTE | 2024-01-20 10:42 | PCM.OPRPT ---
Report of Operation Date of Procedure: 01/20/24 Pre-Operative Diagnosis: venous insufficiency with healed ulceration of right medial lower leg Post-Operative Diagnosis: same Surgery/Procedure Performed:: right GSV chemical ablation Surgeon: Eliud Giraldo Type of Anesthesia: Local and Sedation,Conscious Estimated Blood Loss (mL): 2 Description of Procedure: HPI: Patient is a 73-year-old female with recurrent right lower extremity ulcerations consistent with venous insufficiency and chronic skin changes and thickening. She has healed her wounds currently and presents now for ablation of the great saphenous vein which has significant reflux in efforts to prevent further recurrence. Description of procedure: Upon obtaining form consent and verification correct patient procedure site patient was taken to the Aircraft Stress Analyst where she was positioned prepped and draped in usual sterile fashion. Ultrasound used to evaluate the great saphenous vein from the ankle to the saphenofemoral junction which was found to be continuous with no significant tortuosity or any large branches that would hinder our efforts. Skin overlying the saphenous in the lower leg was anesthetized 1% lidocaine and the vessel accessed a micropuncture needle wire. This then exchanged out for a 7 [place] ablation sheath and through the ablation sheath a Bentson wire was advanced though this went into a sidebranch in the mid calf and could not be redirected. The Bentson wire was then exchanged for a angled glide wire which was able to successfully navigate to this location as well as the remainder of the saphenous vein up to the saphenofemoral junction. Over the wire at the glue delivery guide was advanced in position 5 cm inferior to the saphenofemoral junction. The glue delivery catheter was then advanced through the guide in position per supervisor fabrication instructions 5 cm distal to the saphenofemoral junction. Glue was then deposited along the length of the great saphenous vein down to the mid calf. Once the treatment zone was completed the guide and catheter withdrawn followed by the sheath and manual pressure for 2 minutes till hemostasis was noted. Dry dressing and Aldo wrap were then applied and the patient was taken recovery room for discharge to home.
== END 2024-01-20 12:05 | disposition home or self-care (01) ==
PROVIDERS: PCP Internal Medicine; Referring Provider Surgery Trauma Surgery; Visit Provider Surgery Trauma Surgery
DX: L97.919 Non-pressure chronic ulcer of unspecified part of right lower leg with unspecified severity (principal); I83.012 Varicose veins of right lower extremity with ulcer of calf; I11.0 Hypertensive heart disease with heart failure; I50.9 Heart failure, unspecified; J44.9 Chronic obstructive pulmonary disease, unspecified; E11.59 Type 2 diabetes mellitus with other circulatory complications; E11.40 Type 2 diabetes mellitus with diabetic neuropathy, unspecified; E78.5 Hyperlipidemia, unspecified; G47.33 Obstructive sleep apnea (adult) (pediatric); Z87.891 Personal history of nicotine dependence; Z79.51 Long term (current) use of inhaled steroids; Z79.899 Other long term (current) drug therapy; Z86.16 Personal history of COVID-19; Z86.718 Personal history of other venous thrombosis and embolism
CPT/HCPCS: 36415; 36482; 80048; 85027; 99152; 99153; C1894; J7040; C1769

== ENCOUNTER → 2024-02-24 | Outpatient (CLI) | payer MEDICARE, MEDICAID, SELFPAY ==
--- NOTE | 2024-02-24 13:22 | VDLE_ITS ---
Reason For Study: S/P Rt GSV Ablation RIGHT LEFT CFV is compressible, spontaneous, phasic, FV is compressible, spontaneous, phasic, competent and demonstrates normal competent and demonstrates normal augmentation. augmentation. FV is compressible, spontaneous, phasic, competent and demonstrates normal augmentation. POP V is compressible, spontaneous, phasic, competent and demonstrates normal augmentation. T/P Trunk is compressible. PTV is compressible. RT PerV is compressible. PTV and YECENIA V visualized in segments. GSV is compressible at junction and prox thigh. GSV is NONCOMPRESSIBLE with intraluminal echoes from mid thigh to ankle. Finding consistent with recent chemical ablation procedure. Procedure This is a venous duplex using B-mode, color flow and spectral Doppler. Exam performed in department. The study was technically difficult. Patient was scanned in reverse Trendelenburg position during reflux assessment. VL/Venous Duplex US, Unilateral Interpretation Summary Deep veins of the right lower extremity are patent and compressible segmentally . There is no evidence of right lower extremity deep vein thrombosis. Right great saphenous vein occluded consistent with recent ablation. Ordering Physician: Molly Beck Referring Physician: Luis Cortés Performed By: Micah Allred RVT
== END | disposition home or self-care (01) ==
PROVIDERS: PCP Internal Medicine; Referring Provider Physician Assistant; Visit Provider Physician Assistant
DX: M79.604 Pain in right leg (principal); L97.919 Non-pressure chronic ulcer of unspecified part of right lower leg with unspecified severity; I87.2 Venous insufficiency (chronic) (peripheral)
CPT/HCPCS: 93971

== ENCOUNTER → 2024-03-16 | Outpatient (CLI) | payer MEDICARE, MEDICAID, SELFPAY ==
--- NOTE | 2024-03-16 14:22 | BI_ITS ---
MAMMOGRAPHY - BILATERAL SCREENING REASON FOR EXAM: Female, 74 years old. Routine annual screening examination. PERTINENT HISTORY: Non-contributory. Remote right excisional breast biopsy. TECHNIQUE: Digital bilateral breast keely (3D mammographic acquisition) in the CC and MLO projections. 2-D mediolateral oblique (MLO) and craniocaudad (CC) views of both breasts were obtained. CAD: Full Field Digital Mammography with Computer Added Detection was performed. COMPARISON: Comparison is made with prior study of February 17, 2022. FINDINGS: Breast Composition: The breasts are almost entirely fatty. There are no dominant masses or suspicious calcifications. Stable fat-containing bilateral axillary lymph nodes. Stable prominent venous structures in both breasts. No other significant abnormalities are identified. There has been no significant change since the prior study. BI/SCRN MAMM (CAD)W/KEELY BILAT IMPRESSION: Stable bilateral screening mammogram. Yearly follow-up mammogram recommended. (A) ASSESSMENT CATEGORY: BIRADS Category 2: Benign. A letter regarding these results will be sent to the patient by the facility within 30 days. Approximately 10% of breast cancers are not detected by mammography. A normal mammogram should not delay biopsy of a clinically suspicious abnormality. [id number] Electronically Signed: Catalino Medina MD at 7:47 EDT ,
--- NOTE | 2024-03-16 14:29 | BD_ITS ---
STUDY: DUAL ENERGY X-RAY ABSORPTIOMETRY / DXA REASON FOR EXAM: Female, 74 years old. Post menopausal TECHNIQUE: Bone Mineral Density (BMD) measurements of both forearms were obtained. COMPARISON: Comparison is made with prior study February 17, 2022. FINDINGS: Right Forearm: g/cm2 (0.552) / T-score (-0.5) / Z-score (2.) Left Forearm: g/cm2 (0.586) / T-score (0.1) / Z-score (2.6) BD/Dexa Bone Density/Append Skel IMPRESSION: The patient is considered normal as outlined below according to World Jose Organization (WHO) criteria with a low fracture risk. There has been no change of bone density since the previous examination. Reference Information: The T-score is the number of standard deviations above or below the standard which is normal for young adults at their peak bone mineral density. The World Health Organization (WHO) interprets the T-scores as follows: Above -1 Normal bone density Between -1 and -2.5 Osteopenia Equal to / or below -2.5 Osteoporosis As a practical clinical guideline, osteopenia may be graded as follows: Mild -1 through -1.5 Moderate -1.6 through -2.0 Severe -2.1 through -2.4 The Z-score is the number of standard deviations above or below age-matched controls. A Z-score of less than -1.5 would be considered abnormal. References: 1. NIH Osteoporosis and Related Bone Diseases www osteo.org 2. International Society for Clinical Densitometry www iscd.org 3. National Osteoporosis Foundation www nof.org Electronically Signed: Catalino Medina MD at 10:29 EDT ,
== END | disposition home or self-care (01) ==
LOC: OPBD 14:22
PROVIDERS: PCP Internal Medicine; Referring Provider Internal Medicine; Visit Provider Internal Medicine
DX: Z13.820 Encounter for screening for osteoporosis (principal); Z78.0 Asymptomatic menopausal state; Z12.31 Encounter for screening mammogram for malignant neoplasm of breast
CPT/HCPCS: 77063; 77067; 77081

== ENCOUNTER 2024-03-17 09:15 | Outpatient (RCR) | payer MEDICARE, MEDICAID, SELFPAY ==
[2023-12-20 00:17] VITALS: BP 160/93; PULSE 83; RESP 18; TEMP 36.4; O2SAT 94; BMI 49.8
[2024-02-25 10:19] VITALS: BP 181/73; PULSE 86; RESP 18; TEMP 36.3; BMI 49.8
--- NOTE | 2024-02-25 13:20 | PN.PCM_ITS ---
History of Present Illness Date of Service: 02/25/24 Chief Complaint: B/L LE ulcers, bilateral lower extremity swelling History of Wound: Liz is a pleasant 74 yo woman that presents to the wound center for bilateral lower extremity edema and blisters and drainage of her bilateral lower extremities. She has had increased edema the last 2 weeks and her legs started seeping a few days ago. She has been wearing her tubigrip compression and had been using the lymphedema pumps until they started seeping fluid. She tries to elevate her legs when she is sitting but is not always consistent with doing this. She has been wrapping her leg with gauze when it is seeping but otherwise has not been doing any regular dressings. Patient has been treated at the wound center in the past for similar wounds, most recently October 2023. She has also been seen in the vascular surgery clinic where she was evaluated her for BLE DVT and venous insufficiency. 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 GSV ablation has been done to her right lower leg. She has received lymphedema pumps that were ordered during her last treatment course and has been using these. Last venous study was 03/2022. Last A1C 01/2023 was 6.4%. Last TSH - 01/2022 Patient's medical history is also significant for CHF, COPD, T2DM, lymphedema. She has a CPAP but has not been using this due to needing a new mask. She states that a prescription was to be sent and she never received the mask. Her current mask has a hole in it. Subjective Subjective ROS Constitutional Constitutional: Reports chills; Denies fatigue or fever(s) Eyes Eyes: Denies blurry vision, change in vision or loss of vision ENT HEENT: Denies dysphagia, hearing loss or sore throat Cardiovascular Cardiovascular: Reports edema and leg edema; Denies chest pain or palpitations Respiratory/Chest Respiratory/Chest: Denies dry cough, dyspnea, dyspnea on exertion, productive cough or wheezing Gastrointestinal Gastrointestinal: Denies diarrhea, nausea or vomiting Genitourinary Genitourinary: Reports urinary incontinence; Denies dysuria or polyuria Musculoskeletal Musculoskeletal: Reports arthralgias, difficulty walking, extremity pain and joint stiffness; Denies muscle weakness Integumentary Integumentary: Reports erythema and wounds Neurologic Neurologic: Denies dizziness, memory loss or weakness Psychiatric Psychiatric: Denies homicidal ideation or suicidal ideation Endocrine Endocrinology: Denies polydipsia, polyphagia or polyuria Hematologic/Lymphatic Hematologic/Lymphatic: Denies easy bleeding or easy bruising Allergic/Immunologic Allergic/Immunologic: Denies throat swelling, tongue swelling or urticaria Objective Data Objective Data Vital Signs: Vital Signs Temp Pulse Resp BP Pulse Ox O2 Del Method 97.3 F L 86 18 181/73 H 94 Room Air 02/25/24 10:19 02/25/24 10:19 02/25/24 10:19 02/25/24 10:19 12/20/23 00:17 02/25/24 10:19 Oxygen Delivery Method Room Air Weight: 140.16 kg Body Mass Index (BMI) 49.8 Physical Exam Const alert, oriented x3 and no apparent distress General Appearance: cooperative and comfortable Nutritional Appearance: obese HEENT normocephalic and head/scalp atraumatic Lymph Lymphatic: lymphedema severe and pitting Resp normal respiratory effort Effort and Inspection: able to speak in complete sentences Cardio regular rate and regular rhythm Extremity General Extremity: edema bilateral lower extremity Details: severe (with skin changes associated with lymphedema, thickened nodular appearance from mid allen to ankle) Skin General Skin Exam: erythema, venous stasis and dermatitis Wounds: wounds noted Wound Narrative: as in clinical panel Psych mental status grossly normal, thought process normal, cooperative and affect normal Debridement Note Debridement Note Wound debrided: Right lateral LE Laterality: Right No debridement was completed: No debridement was completed today Post-Debridement Measurements and Additional Note: Post-Debridement Measurements/Treatment JESÚS - Nurse 1 - General Ulcer Assessment Start: 02/25/24 10:19 Freq: Status: Active Protocol: KELSEY Activity Type Activity Date Activity User E-sign Co-sign Detail Recorded Client Recorded Date Recorded By Document 02/25/24 10:19 [email or web address] [id number] 02/25/24 10:35 KW 02/25/24 10:19 JESÚS - Today's Visit Information Type of service Initial Visit Arrival Mode Ambulatory Accompanied by Patient Identification Verified (Name & Yes ) Height and Weight Body Mass Index (BMI) 49.8 BMI Classification Obese Vital Signs Temperature (97.8 F-99.1 F) 97.3 F L Temperature Source Temporal Pulse Rate (60-100) 86 Pulse Location Monitor Respiratory Rate (12-18) 18 Respiratory rate source Observation Oxygen Delivery Method Room Air Blood Pressure (90/60-120/80) 181/73 H Blood Pressure Mean (mm Hg) 109 Source Monitor Position Sitting Blood Pressure Location Left Forearm History Since Last Visit- (Skip if this is Patient's initial visit) Left Footwear Regular Shoe Right Footwear Regular Shoe Pain Scale: 0-10 Numeric Is Patient Pain Free? Yes WC - Nurse 1 - General Ulcer Measurement Start: 02/25/24 10:19 Freq: Status: Active Protocol: Activity Type Activity Date Activity User E-sign Co-sign Detail Recorded Client Recorded Date Recorded By Document 02/25/24 10:19 [email or web address] [id number] 02/25/24 10:35 KW 02/25/24 10:19 Wound Center Nurse 1 #10 RT LAT LE -Current Size (cm) - Length 4.5 -Current Size (cm) - Width 5 -Current Size (cm) - Depth 0.1 -Total Square Cm 22.5 -Date of Last Picture (Recall this 02/25/24 field) -Exudate Amt Large -Exudate Type Serosanguineous -Wound Margin Distinct, Outline Attached -Granulation Amt Large (67-100%) -Granulation Quality Red -Texture (Adrianna-wound Skin Appearance) Assessed -Moisture (Adrianna-wound Skin Appearance) Assessed -Color (Adrianna-wound Skin Appearance) Assessed, Erythema -Temperature (Adrianna-wound Skin No Abnormality Appearance) (Pt Warm) -Tenderness on Palpation (Adrianna-wound No Skin Appearance) -Ulcer Cleansing Soap and Water -Foul Odor after Cleansing No -Anesthetic Used 4% Lidocaine Solution #9 LT LAT LE -Current Size (cm) - Length 15 -Current Size (cm) - Width 8.5 -Current Size (cm) - Depth 0.1 -Total Square Cm 127.5 -Date of Last Picture (Recall this 02/25/24 field) -Exudate Amt Large -Exudate Type Serosanguineous -Wound Margin Distinct, Outline Attached -Granulation Amt Large (67-100%) -Granulation Quality Red -Texture (Adrianna-wound Skin Appearance) Assessed -Moisture (Adrianna-wound Skin Appearance) Assessed, Weeping -Color (Adrianna-wound Skin Appearance) Assessed -Temperature (Adrianna-wound Skin No Abnormality Appearance) (Pt Warm) -Tenderness on Palpation (Adrianna-wound No Skin Appearance) -Ulcer Cleansing Soap and Water -Foul Odor after Cleansing No -Anesthetic Used 4% Lidocaine Solution Right Calf (cm) 54 Right Ankle (cm) 29.5 Left Calf (cm) 54.5 Left Ankle (cm) 31 - Nurse 2 - General Ulcer CM Notes Start: 02/25/24 10:19 Freq: Status: Active Protocol: Activity Type Activity Date Activity User E-sign Co-sign Detail Recorded Client Recorded Date Recorded By Document 02/25/24 11:22 [id number] 02/25/24 11:23 02/25/24 11:22 Wound Center Nurse 2 #10 RT LAT LE -Time 11:22 -Correct Patient Yes -Correct Side, Site, Position Yes -Wound/Ulcer Outcome Not Healed -Wound Comment(s) NO DEBRIDEMENT JUST COMPRESSION #9 LT LAT LE -Time 11:22 -Correct Patient Yes -Correct Side, Site, Position Yes -Wound/Ulcer Outcome Not Healed -Wound Comment(s) NO DEBRIDEMENT, JUST COMPRESSION Pain Scale: 0-10 Numeric Is Patient Pain Free? Yes - Nurse 3 - General Ulcer D/C NN Start: 02/25/24 10:19 Freq: Status: Active Protocol: Activity Type Activity Date Activity User E-sign Co-sign Detail Recorded Client Recorded Date Recorded By Document 02/25/24 12:02 [id number] 02/25/24 12:03 02/25/24 12:02 Wound Care Center Nurse 3 #10 RT LAT LE -Primary Dressing Applied Optilok 8x12 -Optilok 8x12 1 #9 LT LAT LE -Primary Dressing Applied Optilok 8x12 -Optilok 8x12 1 BILAT LE -Multi-Layered Wrap Application Unna Boot - Bilateral ($) Treatment Response Procedure Tolerated Well Pain Scale: 0-10 Numeric Is Patient Pain Free? Yes Teaching: Wound Center Control Swelling with Leg Elevation -Person Taught Patient -Teaching Method Discussion, Demonstration -Response to teaching Verbalize Understanding WC - Visit Discharge Discharge Condition Stable Ambulatory Status Ambulatory, Walker Transportation Private Auto Medication Reconcilliation completed & No provided to patient/care provider Clinical Summary of Care Provided Yes Additional Wound Wound debrided: Left lateral LE Laterality: Left Operative Diagnosis: No debridement completed because there is just skin breakdown, no slough Assessment/Plan Assessment/Plan (1) Debility: CODE(S): R53.81 - Other malaise (2) Osteoarthritis: CODE(S): M19.90 - Unspecified osteoarthritis, unspecified site QUALIFIERS: Osteoarthritis location: multiple joints Osteoarthritis type: primary Qualified Code(s): M15.9 - Polyosteoarthritis, unspecified (3) COPD (chronic obstructive pulmonary disease): CODE(S): J44.9 - Chronic obstructive pulmonary disease, unspecified QUALIFIERS: COPD type: unspecified COPD Qualified Code(s): J44.9 - Chronic obstructive pulmonary disease, unspecified (4) Edema of both lower extremities: CODE(S): R60.0 - Localized edema (5) Venous insufficiency: CODE(S): I87.2 - Venous insufficiency (chronic) (peripheral) (6) Chronic hypoxemic respiratory failure: CODE(S): J96.11 - Chronic respiratory failure with hypoxia (7) Pulmonary hypertension: CODE(S): I27.20 - Pulmonary hypertension, unspecified (8) Morbid obesity with BMI of 45.0-49.9, adult: CODE(S): E66.01 - Morbid (severe) obesity due to excess calories; Z68.42 - Body mass index [BMI] 45.0-49.9, adult (9) Lymphedema: CODE(S): I89.0 - Lymphedema, not elsewhere classified (10) Hypothyroidism: CODE(S): E03.9 - Hypothyroidism, unspecified QUALIFIERS: Hypothyroidism type: unspecified Qualified Code(s): E03.9 - Hypothyroidism, unspecified (11) Type 2 diabetes mellitus: CODE(S): E11.9 - Type 2 diabetes mellitus without complications QUALIFIERS: Diabetes mellitus complication status: with other specified complication Diabetes mellitus terminal gauger supervisor insulin use: without terminal gauger supervisor use Qualified Code(s): E11.69 - Type 2 diabetes mellitus with other specified complication (12) DOLORES (obstructive sleep apnea): CODE(S): G47.33 - Obstructive sleep apnea (adult) (pediatric) (13) Venous ulcer of right lower extremity without varicose veins: CODE(S): I87.2 - Venous insufficiency (chronic) (peripheral); L97.919 - Non-pressure chronic ulcer of unspecified part of right lower leg with unspecified severity PLAN: Plan Evaluation and examination performed today in clinic as annotated above. Chart reviewed for previous testing and history. At home wound-care instructions: Edema will be treated with UNNA boots bilaterally. She has had these previously and tolerated them well. She was instructed to keep dressings clean and dry. Use a cast cover or sponge bath to avoid getting dressings wet. Will have her use lymphedema pumps for 60 minutes 2-3 times daily. Will treat her for cellulitis with Ciprofloxacin. Off-loading: The patient was instructed to avoid pressure and friction on the affected areas. Reposition every 2 hours at minimum. Avoid prolonged standing and/or dangling of legs. When seated, feet should be elevated at chest level. Frequent ambulation is encouraged. Diet: Patient encouraged to increase protein intake while taking caution to avoid high carbohydrate and/or sugar intake. Encouraged weight loss. Labs/cultures/imaging: Encouraged her to get her CPAP mask to improve DOLORES and pulmonary HTN treatment compliance which is adding to her decompensated lymphedema. Follow-up: Will have her follow up in 1 week. Return sooner or report to the emergency room should symptoms worsen, or new symptoms arise. Note: [employer] speech recognition hospitality associate software was used to create portions of this document. Sound-alike and misspelled words, as well as other hospitality associate errors may be contained in the documentation.
--- NOTE | 2024-02-28 08:48 | WC ---
PHOTO 02/25/24 LEFT LATERAL LE
--- NOTE | 2024-02-28 08:49 | WC ---
PHOTO 02/25/24 RIGHT LATERAL LE
[2024-03-03 08:38] VITALS: BP 153/71; PULSE 74; RESP 18; TEMP 36.7; BMI 49.8
--- NOTE | 2024-03-03 13:16 | PCM.WC.PN ---
History of Present Illness Date of Service: 03/03/24 Chief Complaint: B/L LE ulcers, bilateral lower extremity swelling History of Wound: Liz is a pleasant 74 yo woman that presents to the wound center for bilateral lower extremity edema and blisters and drainage of her bilateral lower extremities. She has had increased edema the last 2 weeks and her legs started seeping a few days ago. She has been wearing her tubigrip compression and had been using the lymphedema pumps until they started seeping fluid. She tries to elevate her legs when she is sitting but is not always consistent with doing this. She has been wrapping her leg with gauze when it is seeping but otherwise has not been doing any regular dressings. Patient has been treated at the wound center in the past for similar wounds, most recently October 2023. She has also been seen in the vascular surgery clinic where she was evaluated her for BLE DVT and venous insufficiency. 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 GSV ablation has been done to her right lower leg. She has received lymphedema pumps that were ordered during her last treatment course and has been using these. Last venous study was 03/2022. Last A1C 01/2023 was 6.4%. Last TSH - 01/2022 Patient's medical history is also significant for CHF, COPD, T2DM, lymphedema. She has a CPAP but has not been using this due to needing a new mask. She states that a prescription was to be sent and she never received the mask. Her current mask has a hole in it. Subjective Subjective Liz returns today for treatment of ulcers and edema to bilateral lower legs. She tolerated UNNA boots and her right leg is improved but her left leg is about the same as last week. She admits to drainage worse on left than right. She has been elevating her legs and using lymphedema pumps as directed. She denies fever, chills. Objective Data Objective Data Vital Signs: Vital Signs Temp Pulse Resp BP Pulse Ox O2 Del Method 98.1 F 74 18 153/71 H 94 Room Air 03/03/24 08:38 03/03/24 08:38 03/03/24 08:38 03/03/24 08:38 12/20/23 00:17 03/03/24 08:38 Oxygen Delivery Method Room Air Weight: 140.16 kg Body Mass Index (BMI) 49.8 Physical Exam Const alert, oriented x3 and no apparent distress General Appearance: cooperative and comfortable Nutritional Appearance: obese HEENT normocephalic and head/scalp atraumatic Lymph Lymphatic: lymphedema severe and pitting Resp normal respiratory effort Effort and Inspection: able to speak in complete sentences Cardio regular rate and regular rhythm Extremity General Extremity: edema bilateral lower extremity Details: severe (with skin changes associated with lymphedema, thickened nodular appearance from mid allen to ankle) Skin General Skin Exam: erythema, venous stasis and dermatitis Wounds: wounds noted Wound Narrative: as in clinical panel Psych mental status grossly normal, thought process normal, cooperative and affect normal Debridement Note Debridement Note Post-Debridement Measurements and Additional Note: Post-Debridement Measurements/Treatment - Nurse 1 - General Ulcer Assessment Start: 02/25/24 10:19 Freq: Status: Active Protocol: WC.LOWTANISHAT Activity Type Activity Date Activity User E-sign Co-sign Detail Recorded Client Recorded Date Recorded By Document 02/25/24 10:19 [employer] [id number] 02/25/24 10:35 KW Document 03/03/24 08:38 [employer] [id number] 03/03/24 08:53 KW 02/25/24 03/03/24 10:19 08:38 - Today's Visit Information Type of service Initial Visit Follow-up Visit (Physician/LOGISTICS ANALYTICS MANAGER ) Arrival Mode Ambulatory Ambulatory, Walker Accompanied by Patient Identification Verified (Name & Yes Yes ) Height and Weight Body Mass Index (BMI) 49.8 49.8 BMI Classification Obese Obese Vital Signs Temperature (97.8 F-99.1 F) 97.3 F L 98.1 F Temperature Source Temporal Temporal Pulse Rate (60-100) 86 74 Pulse Location Monitor Monitor Respiratory Rate (12-18) 18 18 Respiratory rate source Observation Observation Oxygen Delivery Method Room Air Room Air Blood Pressure (90/60-120/80) 181/73 H 153/71 H Blood Pressure Mean (mm Hg) 109 98 Source Monitor Monitor Position Sitting Semi-Fowlers Blood Pressure Location Left Forearm Left Arm History Since Last Visit- (Skip if this is Patient's initial visit) Have you changed medications since your No last visit? Any new allergies or adverse reactions No Had a fall/change in ADL's that may No increase risk of falls Signs or symptoms of abuse and/or No neglect since last visit Have you been in the hospital since your No last visit? Has dressing in place as prescribed Yes Has compression in place as prescribed Yes Has offloadiing in place as prescribed N/A Experienced any changes in pain level or No management Left Footwear Regular Shoe Regular Shoe Right Footwear Regular Shoe Regular Shoe Pain Scale: 0-10 Numeric Is Patient Pain Free? Yes Yes WC - Nurse 1 - General Ulcer Measurement Start: 02/25/24 10:19 Freq: Status: Active Protocol: Activity Type Activity Date Activity User E-sign Co-sign Detail Recorded Client Recorded Date Recorded By Document 02/25/24 10:19 KW [id number] 02/25/24 10:35 KW Document 03/03/24 08:38 KW [id number] 03/03/24 08:53 KW 02/25/24 03/03/24 10:19 08:38 Wound Center Nurse 1 #11 RT POST CLUSTER -Current Size (cm) - Length 2.5 -Current Size (cm) - Width 2 -Current Size (cm) - Depth 0.1 -Total Square Cm 5.0 -Exudate Amt Medium -Exudate Type Serosanguineous -Wound Margin Indistinct, Non -Visible -Granulation Amt Small (1-33%) -Granulation Quality [place] -Necrosis Amt Small (1-33%) -Necrotic Tissue Type Adherent Slough -Texture (Adrianna-wound Skin Appearance) Assessed -Moisture (Adrianna-wound Skin Appearance) Assessed, Maceration -Color (Adrianna-wound Skin Appearance) Assessed -Temperature (Adrianna-wound Skin No Abnormality Appearance) (Pt Warm) -Tenderness on Palpation (Adrianna-wound No Skin Appearance) -Ulcer Cleansing Soap and Water -Foul Odor after Cleansing No -Anesthetic Used 5% Lidocaine Gel #10 RT LAT LE -Current Size (cm) - Length 4.5 0.4 -Current Size (cm) - Width 5 0.3 -Current Size (cm) - Depth 0.1 0.1 -Total Square Cm 22.5 0.12 -Date of Last Picture (Recall this 02/25/24 field) -Exudate Amt Large Small -Exudate Type Serosanguineous Serosanguineous -Wound Margin Distinct, Distinct, Outline Outline Attached Attached -Granulation Amt Large (67-100%) Large (67-100%) -Granulation Quality Red [place],Red -Texture (Adrianna-wound Skin Appearance) Assessed Assessed -Moisture (Adrianna-wound Skin Appearance) Assessed Assessed, Maceration -Color (Adrianna-wound Skin Appearance) Assessed, Assessed Erythema -Temperature (Adrinana-wound Skin No Abnormality No Abnormality Appearance) (Pt Warm) (Pt Warm) -Tenderness on Palpation (Adrianna-wound No No Skin Appearance) -Ulcer Cleansing Soap and Water Soap and Water -Foul Odor after Cleansing No No -Anesthetic Used 4% Lidocaine 5% Lidocaine Solution Gel #9 LT LAT LE -Current Size (cm) - Length 15 9 -Current Size (cm) - Width 8.5 10 -Current Size (cm) - Depth 0.1 0.1 -Total Square Cm 127.5 90 -Date of Last Picture (Recall this 02/25/24 field) -Exudate Amt Large Large -Exudate Type Serosanguineous Yellow/Green -Wound Margin Distinct, Distinct, Outline Outline Attached Attached -Granulation Amt Large (67-100%) Large (67-100%) -Granulation Quality Red Red -Necrosis Amt Small (1-33%) -Necrotic Tissue Type Adherent Slough -Texture (Adrianna-wound Skin Appearance) Assessed Assessed -Moisture (Adrianna-wound Skin Appearance) Assessed, Assessed Weeping -Color (Adrianna-wound Skin Appearance) Assessed Assessed, Erythema -Temperature (Adrianna-wound Skin No Abnormality No Abnormality Appearance) (Pt Warm) (Pt Warm) -Tenderness on Palpation (Adrianna-wound No No Skin Appearance) -Ulcer Cleansing Soap and Water Soap and Water -Foul Odor after Cleansing No No -Anesthetic Used 4% Lidocaine 4% Lidocaine Solution Solution Right Calf (cm) 54 47.5 Right Ankle (cm) 29.5 28.7 Left Calf (cm) 54.5 48 Left Ankle (cm) 31 29 WC - Nurse 2 - General Ulcer CM Notes Start: 02/25/24 10:19 Freq: Status: Active Protocol: Activity Type Activity Date Activity User E-sign Co-sign Detail Recorded Client Recorded Date Recorded By Document 02/25/24 11:22 [id number] 02/25/24 11:23 GM Document 03/03/24 09:05 [id number] 03/03/24 09:16 GM 02/25/24 03/03/24 11:22 09:05 Wound Center Nurse 2 #11 RT POST CLUSTER -Time 09:05 -Correct Patient Yes -Correct Side, Site, Position Yes #10 RT LAT LE -Time 11: 09:05 -Correct Patient Yes Yes -Correct Side, Site, Position Yes Yes -Wound/Ulcer Outcome Not Healed -Wound Comment(s) NO DEBRIDEMENT JUST COMPRESSION #9 LT LAT LE -Time 11: 09:05 -Correct Patient Yes Yes -Correct Side, Site, Position Yes Yes -Correct Procedure Yes -Procedure Performed Yes -Type of Procedure Debridement -Clinical Debridement Epidermis / Dermis -Tissue Removed Epidermis -Post Debridement (cm) - Length 6.5 -Post Debridement (cm) - Width 10.0 -Post Debridement (cm) - Depth 0.1 -Total Square (Post) (cm) 65.00 -Area of Debridement (cm) - Length 6.5 -Area of Debridement (cm) - Width 10.0 -Total Square (Area) (cm) 65.00 -Tunneling No -Undermining/Tunneling No -Circular Undermining No -Wound/Ulcer Outcome Not Healed Not Healed -Ulcer Cleansing Rinsed/ Irrigated with Saline -Foul Odor after Cleansing No -Bioengineered Tissue No -Bleeding Controlled with Pressure -Treatment Response Procedure Tolerated Well -Debridement - Open, 1st 20sq cm Yes -Debridement, Open, ea addt'l 20sq cm 3 or part thereof -Wound Comment(s) NO DEBRIDEMENT, JUST COMPRESSION Pain Scale: 0-10 Numeric Is Patient Pain Free? Yes Yes WC - Nurse 3 - General Ulcer D/C NN Start: 02/25/24 10:19 Freq: Status: Active Protocol: Activity Type Activity Date Activity User E-sign Co-sign Detail Recorded Client Recorded Date Recorded By Document 02/25/24 12:02 RB [id number] 02/25/24 12:03 RB Document 03/03/24 09:46 CO [id number] 03/03/24 09:47 MT 02/25/24 03/03/24 12:02 09:46 Wound Care Center Nurse 3 #10 RT LAT LE -Primary Dressing Applied Optilok 8x12 -Optilok 8x12 1 #9 LT LAT LE -Primary Dressing Applied Optilok 8x12 Aquacel Extra -Aquacel Extra 1 -Optilok 8x12 1 BILAT LE -Multi-Layered Wrap Application Unna Boot - Unna Boot - Bilateral ($) Bilateral ($) Treatment Response Procedure Tolerated Well Pain Scale: 0-10 Numeric Is Patient Pain Free? Yes Yes Teaching: Wound Center Control Swelling with Leg Elevation -Person Taught Patient -Teaching Method Discussion, Demonstration -Response to teaching Verbalize Understanding WC - Visit Discharge Discharge Condition Stable Ambulatory Status Ambulatory, Walker Transportation Private Auto Medication Reconcilliation completed & No provided to patient/care provider Clinical Summary of Care Provided Yes Assessment/Plan Assessment/Plan (1) Debility: CODE(S): R53.81 - Other malaise (2) Osteoarthritis: CODE(S): M19.90 - Unspecified osteoarthritis, unspecified site QUALIFIERS: Osteoarthritis location: multiple joints Osteoarthritis type: primary Qualified Code(s): M15.9 - Polyosteoarthritis, unspecified (3) COPD (chronic obstructive pulmonary disease): CODE(S): J44.9 - Chronic obstructive pulmonary disease, unspecified QUALIFIERS: COPD type: unspecified COPD Qualified Code(s): J44.9 - Chronic obstructive pulmonary disease, unspecified (4) Edema of both lower extremities: CODE(S): R60.0 - Localized edema (5) Venous insufficiency: CODE(S): I87.2 - Venous insufficiency (chronic) (peripheral) (6) Chronic hypoxemic respiratory failure: CODE(S): J96.11 - Chronic respiratory failure with hypoxia (7) Pulmonary hypertension: CODE(S): I27.20 - Pulmonary hypertension, unspecified (8) Morbid obesity with BMI of 45.0-49.9, adult: CODE(S): E66.01 - Morbid (severe) obesity due to excess calories; Z68.42 - Body mass index [BMI] 45.0-49.9, adult (9) Lymphedema: CODE(S): I89.0 - Lymphedema, not elsewhere classified (10) Hypothyroidism: CODE(S): E03.9 - Hypothyroidism, unspecified QUALIFIERS: Hypothyroidism type: unspecified Qualified Code(s): E03.9 - Hypothyroidism, unspecified (11) Type 2 diabetes mellitus: CODE(S): E11.9 - Type 2 diabetes mellitus without complications QUALIFIERS: Diabetes mellitus manager long term care insulin use: without half-way use Diabetes mellitus complication status: with other specified complication Qualified Code(s): E11.69 - Type 2 diabetes mellitus with other specified complication (12) DOLORES (obstructive sleep apnea): CODE(S): G47.33 - Obstructive sleep apnea (adult) (pediatric) (13) Venous ulcer of right lower extremity without varicose veins: CODE(S): I87.2 - Venous insufficiency (chronic) (peripheral); L97.919 - Non-pressure chronic ulcer of unspecified part of right lower leg with unspecified severity PLAN: Plan Evaluation and examination performed today in clinic as annotated above. Chart reviewed for previous testing and history. At home wound-care instructions: Edema will be treated with UNNA boots bilaterally and apply Aquacel Extra to the left lower leg ulcer. She has had these previously and tolerated them well. She was instructed to keep dressings clean and dry. Use a cast cover or sponge bath to avoid getting dressings wet. Will have her use lymphedema pumps for 60 minutes 2-3 times daily. Off-loading: The patient was instructed to avoid pressure and friction on the affected areas. Reposition every 2 hours at minimum. Avoid prolonged standing and/or dangling of legs. When seated, feet should be elevated at chest level. Frequent ambulation is encouraged. Diet: Patient encouraged to increase protein intake while taking caution to avoid high carbohydrate and/or sugar intake. Encouraged weight loss. Labs/cultures/imaging: Encouraged her to get her CPAP mask to improve DOLORES and pulmonary HTN treatment compliance which is adding to her decompensated lymphedema. Follow-up: Will have her follow up in 1 week. Return sooner or report to the emergency room should symptoms worsen, or new symptoms arise. Note: [employer] speech recognition contour sander software was used to create portions of this document. Sound-alike and misspelled words, as well as other contour sander errors may be contained in the documentation.
[2024-03-10 09:31] VITALS: BP 179/56; PULSE 78; RESP 18; TEMP 35.5; BMI 49.8
--- NOTE | 2024-03-10 13:26 | PCM.WC.PN ---
History of Present Illness Date of Service: 03/10/24 Chief Complaint: B/L LE ulcers, bilateral lower extremity swelling History of Wound: Liz is a pleasant 74 yo woman that presents to the wound center for bilateral lower extremity edema and blisters and drainage of her bilateral lower extremities. She has had increased edema the last 2 weeks and her legs started seeping a few days ago. She has been wearing her tubigrip compression and had been using the lymphedema pumps until they started seeping fluid. She tries to elevate her legs when she is sitting but is not always consistent with doing this. She has been wrapping her leg with gauze when it is seeping but otherwise has not been doing any regular dressings. Patient has been treated at the wound center in the past for similar wounds, most recently October 2023. She has also been seen in the vascular surgery clinic where she was evaluated her for BLE DVT and venous insufficiency. 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 GSV ablation has been done to her right lower leg. She has received lymphedema pumps that were ordered during her last treatment course and has been using these. Last venous study was 03/2022. Last A1C 01/2023 was 6.4%. Last TSH - 01/2022 Patient's medical history is also significant for CHF, COPD, T2DM, lymphedema. She has a CPAP but has not been using this due to needing a new mask. She states that a prescription was to be sent and she never received the mask. Her current mask has a hole in it. Subjective Subjective Liz returns today for treatment of ulcers and edema to bilateral lower legs. She tolerated UNNA boots and both of her legs are healed. She has been elevating her legs and using lymphedema pumps as directed. She denies fever, chills. Objective Data Objective Data Vital Signs: Vital Signs Temp Pulse Resp BP Pulse Ox O2 Del Method 96 F L 78 18 179/56 H 94 Room Air 03/10/24 09:31 03/10/24 09:31 03/10/24 09:31 03/10/24 09:31 12/20/23 00:17 03/03/24 08:38 Oxygen Delivery Method Room Air Weight: 140.16 kg Body Mass Index (BMI) 49.8 Physical Exam Const alert, oriented x3 and no apparent distress General Appearance: cooperative and comfortable Nutritional Appearance: obese HEENT normocephalic and head/scalp atraumatic Lymph Lymphatic: lymphedema severe and pitting Resp normal respiratory effort Effort and Inspection: able to speak in complete sentences Cardio regular rate and regular rhythm Extremity General Extremity: edema bilateral lower extremity Details: severe (with skin changes associated with lymphedema, thickened nodular appearance from mid allen to ankle) Skin General Skin Exam: erythema, venous stasis and dermatitis Wounds: wounds noted Wound Narrative: as in clinical panel Psych mental status grossly normal, thought process normal, cooperative and affect normal Debridement Note Debridement Note Wound debrided: left lateral LE Laterality: Left No debridement was completed: No debridement was completed today (ulcer is healed) Post-Debridement Measurements and Additional Note: Post-Debridement Measurements/Treatment - Nurse 1 - General Ulcer Assessment Start: 02/25/24 10:19 Freq: Status: Active Protocol: JESÚS.LOWTANISHAT Activity Type Activity Date Activity User E-sign Co-sign Detail Recorded Client Recorded Date Recorded By Document 02/25/24 10:19 KW [id number] 02/25/24 10:35 KW Document 03/03/24 08:38 KW [id number] 03/03/24 08:53 KW Document 03/10/24 09:31 RB [id number] 03/10/24 09:38 RB 02/25/24 03/03/24 03/10/24 10:19 08:38 09:31 - Today's Visit Information Type of service Initial Visit Follow-up Visit Follow-up Visit (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 [employer]ODUCTION (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 [employer] ) ) Arrival Mode Ambulatory Ambulatory, Ambulatory, Walker Walker Transfer Assistance None Accompanied by Patient Identification Verified (Name & Yes Yes Yes ) Patient Requires Transmission-Based No Precautions Height and Weight Body Mass Index (BMI) 49.8 49.8 49.8 BMI Classification Obese Obese Obese Vital Signs Temperature (97.8 F-99.1 F) 97.3 F L 98.1 F 96 F L Temperature Source Temporal Temporal Temporal Pulse Rate (60-100) 86 74 78 Pulse Location Monitor Monitor Monitor Respiratory Rate (12-18) 18 18 18 Respiratory rate source Observation Observation Observation Oxygen Delivery Method Room Air Room Air Blood Pressure (90/60-120/80) 181/73 H 153/71 H 179/56 H Blood Pressure Mean (mm Hg) 109 98 97 Source Monitor Monitor Monitor Position Sitting Semi-Fowlers Semi-Fowlers Blood Pressure Location Left Forearm Left Arm Left Arm History Since Last Visit- (Skip if this is Patient's initial visit) Have you changed medications since your No No last visit? Any new allergies or adverse reactions No No Had a fall/change in ADL's that may No No increase risk of falls Signs or symptoms of abuse and/or No No neglect since last visit Have you been in the hospital since your No No last visit? Has dressing in place as prescribed Yes Yes Has compression in place as prescribed Yes Yes Has offloadiing in place as prescribed N/A No Experienced any changes in pain level or No No management Left Footwear Regular Shoe Regular Shoe Right Footwear Regular Shoe Regular Shoe Pain Scale: 0-10 Numeric Is Patient Pain Free? Yes Yes Yes WC - Nurse 1 - General Ulcer Measurement Start: 02/25/24 10:19 Freq: Status: Active Protocol: Activity Type Activity Date Activity User E-sign Co-sign Detail Recorded Client Recorded Date Recorded By Document 02/25/24 10:19 KW [id number] 02/25/24 10:35 KW Document 03/03/24 08:38 KW [id number] 03/03/24 08:53 KW Document 03/10/24 09:31 RB [id number] 03/10/24 09:38 RB 02/25/24 03/03/24 03/10/24 10:19 08:38 09:31 Wound Center Nurse 1 #11 RT POST CLUSTER -Combined with other wound No -Current Size (cm) - Length 2.5 0.1 -Current Size (cm) - Width 2 0.1 -Current Size (cm) - Depth 0.1 0.1 -Total Square Cm 5.0 0.01 -Tunneling No -Undermining/Tunneling No -Circular Undermining No -Exudate Amt Medium Large -Exudate Type Serosanguineous Serosanguineous -Wound Margin Indistinct, Non Distinct, -Visible Outline Attached -Granulation Amt Small (1-33%) Medium (34-66%) -Granulation Quality [place] -Slough/Fibrin Yes -Necrosis Amt Small (1-33%) Small (1-33%) -Necrotic Tissue Type Adherent Slough Adherent Slough -Structure Exposed N/A -Texture (Adrianna-wound Skin Appearance) Assessed Assessed, Localized Edema -Moisture (Adrianna-wound Skin Appearance) Assessed, Assessed Maceration -Color (Adrianna-wound Skin Appearance) Assessed Assessed -Temperature (Adrianna-wound Skin No Abnormality No Abnormality Appearance) (Pt Warm) (Pt Warm) -Tenderness on Palpation (Adrianna-wound No No Skin Appearance) -Ulcer Cleansing Soap and Water Wound Cleanser -Foul Odor after Cleansing No No -Anesthetic Used 5% Lidocaine 5% Lidocaine Gel Gel #10 RT LAT LE -Combined with other wound No -Current Size (cm) - Length 4.5 0.4 0.1 -Current Size (cm) - Width 5 0.3 0.1 -Current Size (cm) - Depth 0.1 0.1 0.1 -Total Square Cm 22.5 0.12 0.01 -Date of Last Picture (Recall this 02/25/24 field) -Tunneling No -Undermining/Tunneling No -Circular Undermining No -Exudate Amt Large Small None Present -Exudate Type Serosanguineous Serosanguineous -Wound Margin Distinct, Distinct, Distinct, Outline Outline Outline Attached Attached Attached -Granulation Amt Large (67-100%) Large (67-100%) Medium (34-66%) -Granulation Quality [place] -Slough/Fibrin Yes -Necrosis Amt Medium (34-66%) -Necrotic Tissue Type Adherent Slough -Structure Exposed N/A -Texture (Adrianna-wound Skin Appearance) Assessed Assessed Assessed -Moisture (Adrianna-wound Skin Appearance) Assessed Assessed, Assessed Maceration -Color (Adrianna-wound Skin Appearance) Assessed, Assessed Assessed Erythema -Temperature (Adrianna-wound Skin No Abnormality No Abnormality No Abnormality Appearance) (Pt Warm) (Pt Warm) (Pt Warm) -Tenderness on Palpation (Adrianna-wound No No No Skin Appearance) -Ulcer Cleansing Soap and Water Soap and Water Wound Cleanser -Foul Odor after Cleansing No No No -Anesthetic Used 4% Lidocaine 5% Lidocaine 5% Lidocaine Solution Gel Gel #9 LT LAT LE -Combined with other wound No -Current Size (cm) - Length 15 9 0.1 -Current Size (cm) - Width 8.5 10 0.1 -Current Size (cm) - Depth 0.1 0.1 0.1 -Total Square Cm 127.5 90 0.01 -Date of Last Picture (Recall this 02/25/24 field) -Tunneling No -Undermining/Tunneling No -Circular Undermining No -Exudate Amt Large Large None Present -Exudate Type Serosanguineous Yellow/Green -Wound Margin Distinct, Distinct, Distinct, Outline Outline Outline Attached Attached Attached -Granulation Amt Large (67-100%) Large (67-100%) Medium (34-66%) -Granulation Quality [place] -Slough/Fibrin Yes -Necrosis Amt Small (1-33%) Medium (34-66%) -Necrotic Tissue Type Adherent Slough Adherent Slough -Structure Exposed N/A -Texture (Adrianna-wound Skin Appearance) Assessed Assessed Assessed -Moisture (Adrianna-wound Skin Appearance) Assessed, Assessed Assessed Weeping -Color (Adrianna-wound Skin Appearance) Assessed Assessed, Assessed Erythema -Temperature (Adrianna-wound Skin No Abnormality No Abnormality No Abnormality Appearance) (Pt Warm) (Pt Warm) (Pt Warm) -Tenderness on Palpation (Adrianna-wound No No No Skin Appearance) -Ulcer Cleansing Soap and Water Soap and Water Wound Cleanser -Foul Odor after Cleansing No No No -Anesthetic Used 4% Lidocaine 4% Lidocaine 5% Lidocaine Solution Solution Gel Lower Limb Edema Present Yes Right Calf (cm) 54 47.5 54.2 Right Ankle (cm) 29.5 28.7 27.5 Left Calf (cm) 54.5 48 53 Left Ankle (cm) 31 29 29 WC - Nurse 2 - General Ulcer CM Notes Start: 02/25/24 10:19 Freq: Status: Active Protocol: Activity Type Activity Date Activity User E-sign Co-sign Detail Recorded Client Recorded Date Recorded By Document 02/25/24 11:22 [id number] 02/25/24 11:23 Document 03/03/24 09:05 [id number] 03/03/24 09:16 Document 03/10/24 10:23 [id number] 03/10/24 10:28 02/25/24 03/03/24 03/10/24 11:22 09:05 10:23 Wound Center Nurse 2 #11 RT POST CLUSTER -Time 09:05 10:27 -Correct Patient Yes Yes -Correct Side, Site, Position Yes Yes -Wound/Ulcer Outcome Healed- Epithelialized #10 RT LAT LE -Time 11: 09:05 10:27 -Correct Patient Yes Yes Yes -Correct Side, Site, Position Yes Yes Yes -Wound/Ulcer Outcome Not Healed -Wound Comment(s) NO DEBRIDEMENT JUST COMPRESSION #9 LT LAT LE -Time 11:22 09:05 10:27 -Correct Patient Yes Yes Yes -Correct Side, Site, Position Yes Yes Yes -Correct Procedure Yes -Procedure Performed Yes -Type of Procedure Debridement -Clinical Debridement Epidermis / Dermis -Tissue Removed Epidermis -Post Debridement (cm) - Length 6.5 -Post Debridement (cm) - Width 10.0 -Post Debridement (cm) - Depth 0.1 -Total Square (Post) (cm) 65.00 -Area of Debridement (cm) - Length 6.5 -Area of Debridement (cm) - Width 10.0 -Total Square (Area) (cm) 65.00 -Tunneling No -Undermining/Tunneling No -Circular Undermining No -Wound/Ulcer Outcome Not Healed Not Healed Healed- Epithelialized -Ulcer Cleansing Rinsed/ Irrigated with Saline -Foul Odor after Cleansing No -Bioengineered Tissue No -Bleeding Controlled with Pressure -Treatment Response Procedure Tolerated Well -Debridement - Open, 1st 20sq cm Yes -Debridement, Open, ea addt'l 20sq cm 3 or part thereof -Wound Comment(s) NO DEBRIDEMENT, JUST COMPRESSION Pain Scale: 0-10 Numeric Is Patient Pain Free? Yes Yes Yes WC - Nurse 3 - General Ulcer D/C NN Start: 02/25/24 10:19 Freq: Status: Active Protocol: Activity Type Activity Date Activity User E-sign Co-sign Detail Recorded Client Recorded Date Recorded By Document 02/25/24 12:02 RB [id number] 02/25/24 12:03 RB Document 03/03/24 09:46 MT [id number] 03/03/24 09:47 MT Document 03/10/24 11:03 ML [id number] 03/10/24 11:05 ML 02/25/24 03/03/24 03/10/24 12:02 09:46 11:03 Wound Care Center Nurse 3 #11 RT POST CLUSTER -Primary Dressing Applied Mepilex Border -Other Dressing tubi -Mepilex Border 1 #10 RT LAT LE -Primary Dressing Applied Optilok 8x12 -Optilok 8x12 1 #9 LT LAT LE -Ulcer Cleansing Rinsed/ Irrigated with Saline -Primary Dressing Applied Optilok 8x12 Aquacel Extra Mepilex Border -Aquacel Extra 1 -Mepilex Border 1 -Optilok 8x12 1 BILAT LE -Multi-Layered Wrap Application Unna Boot - Unna Boot - Bilateral ($) Bilateral ($) -Tubular Bandage Double Layer -Size of Tubigrip Used Size F -Size F ($) 2 Treatment Response Procedure Tolerated Well Pain Scale: 0-10 Numeric Is Patient Pain Free? Yes Yes Yes Teaching: Wound Center Control Swelling with Leg Elevation -Person Taught Patient -Teaching Method Discussion, Demonstration -Response to teaching Verbalize Understanding WC - Visit Discharge Discharge Condition Stable Ambulatory Status Ambulatory, Walker Transportation Private Auto Medication Reconcilliation completed & No provided to patient/care provider Clinical Summary of Care Provided Yes Assessment/Plan Assessment/Plan (1) Debility: CODE(S): R53.81 - Other malaise (2) Osteoarthritis: CODE(S): M19.90 - Unspecified osteoarthritis, unspecified site QUALIFIERS: Osteoarthritis location: multiple joints Osteoarthritis type: primary Qualified Code(s): M15.9 - Polyosteoarthritis, unspecified (3) COPD (chronic obstructive pulmonary disease): CODE(S): J44.9 - Chronic obstructive pulmonary disease, unspecified QUALIFIERS: COPD type: unspecified COPD Qualified Code(s): J44.9 - Chronic obstructive pulmonary disease, unspecified (4) Edema of both lower extremities: CODE(S): R60.0 - Localized edema (5) Venous insufficiency: CODE(S): I87.2 - Venous insufficiency (chronic) (peripheral) (6) Chronic hypoxemic respiratory failure: CODE(S): J96.11 - Chronic respiratory failure with hypoxia (7) Pulmonary hypertension: CODE(S): I27.20 - Pulmonary hypertension, unspecified (8) Morbid obesity with BMI of 45.0-49.9, adult: CODE(S): E66.01 - Morbid (severe) obesity due to excess calories; Z68.42 - Body mass index [BMI] 45.0-49.9, adult (9) Lymphedema: CODE(S): I89.0 - Lymphedema, not elsewhere classified (10) Hypothyroidism: CODE(S): E03.9 - Hypothyroidism, unspecified QUALIFIERS: Hypothyroidism type: unspecified Qualified Code(s): E03.9 - Hypothyroidism, unspecified (11) Type 2 diabetes mellitus: CODE(S): E11.9 - Type 2 diabetes mellitus without complications QUALIFIERS: Diabetes mellitus intermodal 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 insulin use: without intermodal 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 use Diabetes mellitus complication status: with other specified complication Qualified Code(s): E11.69 - Type 2 diabetes mellitus with other specified complication (12) DOLORES (obstructive sleep apnea): CODE(S): G47.33 - Obstructive sleep apnea (adult) (pediatric) (13) Venous ulcer of right lower extremity without varicose veins: CODE(S): I87.2 - Venous insufficiency (chronic) (peripheral); L97.919 - Non-pressure chronic ulcer of unspecified part of right lower leg with unspecified severity PLAN: Plan Evaluation and examination performed today in clinic as annotated above. Chart reviewed for previous testing and history. At home wound-care instructions: Edema will be treated with tubigrips in a double layer and have her use lymphedema pumps. Will apply a foam dressing today to the left lateral LE to pad and protect. She was instructed to keep dressings clean and dry. Will have her use lymphedema pumps for 60 minutes 2-3 times daily. Off-loading: The patient was instructed to avoid pressure and friction on the affected areas. Reposition every 2 hours at minimum. Avoid prolonged standing and/or dangling of legs. When seated, feet should be elevated at chest level. Frequent ambulation is encouraged. Diet: Patient encouraged to increase protein intake while taking caution to avoid high carbohydrate and/or sugar intake. Encouraged weight loss. Labs/cultures/imaging: Encouraged her to get her CPAP mask to improve DOLORES and pulmonary HTN treatment compliance which is adding to her decompensated lymphedema. Follow-up: Will have her follow up in 1 week. Return sooner or report to the emergency room should symptoms worsen, or new symptoms arise. Note: MVERSE speech recognition corporate fitness program coordinator software was used to create portions of this document. Sound-alike and misspelled words, as well as other corporate fitness program coordinator errors may be contained in the documentation.
[2024-03-17 09:33] VITALS: BP 152/54; PULSE 76; RESP 18; TEMP 35.8; BMI 49.8
--- NOTE | 2024-03-17 13:59 | PN.PCM_ITS ---
History of Present Illness Date of Service: 03/17/24 Chief Complaint: B/L LE ulcers, bilateral lower extremity swelling History of Wound: Liz is a pleasant 74 yo woman that presents to the wound center for bilateral lower extremity edema and blisters and drainage of her bilateral lower extremities. She has had increased edema the last 2 weeks and her legs started seeping a few days ago. She has been wearing her tubigrip compression and had been using the lymphedema pumps until they started seeping fluid. She tries to elevate her legs when she is sitting but is not always consistent with doing this. She has been wrapping her leg with gauze when it is seeping but otherwise has not been doing any regular dressings. Patient has been treated at the wound center in the past for similar wounds, most recently October 2023. She has also been seen in the vascular surgery clinic where she was evaluated her for BLE DVT and venous insufficiency. 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 GSV ablation has been done to her right lower leg. She has received lymphedema pumps that were ordered during her last treatment course and has been using these. Last venous study was 03/2022. Last A1C 01/2023 was 6.4%. Last TSH - 01/2022 Patient's medical history is also significant for CHF, COPD, T2DM, lymphedema. She has a CPAP but has not been using this due to needing a new mask. She states that a prescription was to be sent and she never received the mask. Her current mask has a hole in it. Subjective Subjective Liz returns today for treatment of edema to bilateral lower legs. She tolerated tubigrip compression and both of her legs are healed. 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 She has been elevating her legs and using lymphedema pumps as directed. She denies fever, chills. Objective Data Objective Data Vital Signs: Vital Signs Temp Pulse Resp BP Pulse Ox O2 Del Method 96.5 F L 76 18 152/54 H 94 Room Air 03/17/24 09:33 03/17/24 09:33 03/17/24 09:33 03/17/24 09:33 12/20/23 00:17 03/03/24 08:38 Oxygen Delivery Method Room Air Weight: 140.16 kg Body Mass Index (BMI) 49.8 Physical Exam Const alert, oriented x3 and no apparent distress General Appearance: cooperative and comfortable Nutritional Appearance: obese HEENT normocephalic and head/scalp atraumatic Lymph Lymphatic: lymphedema severe and pitting Resp normal respiratory effort Effort and Inspection: able to speak in complete sentences Cardio regular rate and regular rhythm Extremity General Extremity: edema bilateral lower extremity Details: severe (with skin changes associated with lymphedema, thickened nodular appearance from mid allen to ankle) Skin General Skin Exam: erythema, venous stasis and dermatitis Wounds: wounds noted Wound Narrative: as in clinical panel Psych mental status grossly normal, thought process normal, cooperative and affect normal Debridement Note Debridement Note No debridement was completed: No debridement was completed today Post-Debridement Measurements and Additional Note: Post-Debridement Measurements/Treatment - Nurse 1 - General Ulcer Assessment Start: 02/25/24 10:19 Freq: Status: Active Protocol: KELSEY Activity Type Activity Date Activity User E-sign Co-sign Detail Recorded Client Recorded Date Recorded By Document 02/25/24 10:19 KW [id number] 02/25/24 10:35 KW Document 03/03/24 08:38 KW [id number] 03/03/24 08:53 KW Document 03/10/24 09:31 RB [id number] 03/10/24 09:38 RB Document 03/17/24 09:33 RB [id number] 03/17/24 09:35 RB 02/25/24 03/03/24 03/10/24 10:19 08:38 09:31 - Today's Visit Information Type of service Initial Visit Follow-up Visit Follow-up Visit (Physician/RN [facility] (Physician/RN [facility] ) ) Arrival Mode Ambulatory Ambulatory, Ambulatory, Walker Walker Transfer Assistance None Accompanied by Patient Identification Verified (Name & Yes Yes Yes ) Patient Requires Transmission-Based No Precautions Height and Weight Body Mass Index (BMI) 49.8 49.8 49.8 BMI Classification Obese Obese Obese Vital Signs Temperature (97.8 F-99.1 F) 97.3 F L 98.1 F 96 F L Temperature Source Temporal Temporal Temporal Pulse Rate (60-100) 86 74 78 Pulse Location Monitor Monitor Monitor Respiratory Rate (12-18) 18 18 18 Respiratory rate source Observation Observation Observation Oxygen Delivery Method Room Air Room Air Blood Pressure (90/60-120/80) 181/73 H 153/71 H 179/56 H Blood Pressure Mean (mm Hg) 109 98 97 Source Monitor Monitor Monitor Position Sitting Semi-Fowlers Semi-Fowlers Blood Pressure Location Left Forearm Left Arm Left Arm History Since Last Visit- (Skip if this is Patient's initial visit) Have you changed medications since your No No last visit? Any new allergies or adverse reactions No No Had a fall/change in ADL's that may No No increase risk of falls Signs or symptoms of abuse and/or No No neglect since last visit Have you been in the hospital since your No No last visit? Has dressing in place as prescribed Yes Yes Has compression in place as prescribed Yes Yes Has offloadiing in place as prescribed N/A No Experienced any changes in pain level or No No management Left Footwear Regular Shoe Regular Shoe Right Footwear Regular Shoe Regular Shoe Pain Scale: 0-10 Numeric Is Patient Pain Free? Yes Yes Yes 03/17/24 09:33 WC - Today's Visit Information Type of service Follow-up Visit (Physician/RN [facility] ) Arrival Mode Ambulatory, Walker Transfer Assistance None Accompanied by Patient Identification Verified (Name & Yes ) Patient Requires Transmission-Based No Precautions Height and Weight Body Mass Index (BMI) 49.8 BMI Classification Obese Vital Signs Temperature (97.8 F-99.1 F) 96.5 F L Temperature Source Temporal Pulse Rate (60-100) 76 Pulse Location Monitor Respiratory Rate (12-18) 18 Respiratory rate source Observation Oxygen Delivery Method Blood Pressure (90/60-120/80) 152/54 H Blood Pressure Mean (mm Hg) 86 Source Monitor Position Semi-Fowlers Blood Pressure Location Left Arm History Since Last Visit- (Skip if this is Patient's initial visit) Have you changed medications since your No last visit? Any new allergies or adverse reactions No Had a fall/change in ADL's that may No increase risk of falls Signs or symptoms of abuse and/or No neglect since last visit Have you been in the hospital since your No last visit? Has dressing in place as prescribed Yes Has compression in place as prescribed Yes Has offloadiing in place as prescribed No Experienced any changes in pain level or No management Left Footwear Right Footwear Pain Scale: 0-10 Numeric Is Patient Pain Free? Yes - Nurse 1 - General Ulcer Measurement Start: 02/25/24 10:19 Freq: Status: Active Protocol: Activity Type Activity Date Activity User E-sign Co-sign Detail Recorded Client Recorded Date Recorded By Document 02/25/24 10:19 KW [id number] 02/25/24 10:35 KW Document 03/03/24 08:38 KW [id number] 03/03/24 08:53 KW Document 03/10/24 09:31 RB [id number] 03/10/24 09:38 RB Document 03/17/24 09:33 RB [id number] 03/17/24 09:35 RB 02/25/24 03/03/24 03/10/24 10:19 08:38 09:31 Wound Center Nurse 1 #11 RT POST CLUSTER -Combined with other wound No -Current Size (cm) - Length 2.5 0.1 -Current Size (cm) - Width 2 0.1 -Current Size (cm) - Depth 0.1 0.1 -Total Square Cm 5.0 0.01 -Tunneling No -Undermining/Tunneling No -Circular Undermining No -Exudate Amt Medium Large -Exudate Type Serosanguineous Serosanguineous -Wound Margin Indistinct, Non Distinct, -Visible Outline Attached -Granulation Amt Small (1-33%) Medium (34-66%) -Granulation Quality [place] -Slough/Fibrin Yes -Necrosis Amt Small (1-33%) Small (1-33%) -Necrotic Tissue Type Adherent Slough Adherent Slough -Structure Exposed N/A -Texture (Adrianna-wound Skin Appearance) Assessed Assessed, Localized Edema -Moisture (Adrianna-wound Skin Appearance) Assessed, Assessed Maceration -Color (Adrianna-wound Skin Appearance) Assessed Assessed -Temperature (Adrianna-wound Skin No Abnormality No Abnormality Appearance) (Pt Warm) (Pt Warm) -Tenderness on Palpation (Adrianna-wound No No Skin Appearance) -Ulcer Cleansing Soap and Water Wound Cleanser -Foul Odor after Cleansing No No -Anesthetic Used 5% Lidocaine 5% Lidocaine Gel Gel #10 RT LAT LE -Combined with other wound No -Current Size (cm) - Length 4.5 0.4 0.1 -Current Size (cm) - Width 5 0.3 0.1 -Current Size (cm) - Depth 0.1 0.1 0.1 -Total Square Cm 22.5 0.12 0.01 -Date of Last Picture (Recall this 02/25/24 field) -Tunneling No -Undermining/Tunneling No -Circular Undermining No -Exudate Amt Large Small None Present -Exudate Type Serosanguineous Serosanguineous -Wound Margin Distinct, Distinct, Distinct, Outline Outline Outline Attached Attached Attached -Granulation Amt Large (67-100%) Large (67-100%) Medium (34-66%) -Granulation Quality Red Bolton,Red Bolton -Slough/Fibrin Yes -Necrosis Amt Medium (34-66%) -Necrotic Tissue Type Adherent Slough -Structure Exposed N/A -Texture (Adrianna-wound Skin Appearance) Assessed Assessed Assessed -Moisture (Adrianna-wound Skin Appearance) Assessed Assessed, Assessed Maceration -Color (Adrianna-wound Skin Appearance) Assessed, Assessed Assessed Erythema -Temperature (Adrianna-wound Skin No Abnormality No Abnormality No Abnormality Appearance) (Pt Warm) (Pt Warm) (Pt Warm) -Tenderness on Palpation (Adrianna-wound No No No Skin Appearance) -Ulcer Cleansing Soap and Water Soap and Water Wound Cleanser -Foul Odor after Cleansing No No No -Anesthetic Used 4% Lidocaine 5% Lidocaine 5% Lidocaine Solution Gel Gel #9 LT LAT LE -Combined with other wound No -Current Size (cm) - Length 15 9 0.1 -Current Size (cm) - Width 8.5 10 0.1 -Current Size (cm) - Depth 0.1 0.1 0.1 -Total Square Cm 127.5 90 0.01 -Date of Last Picture (Recall this 02/25/24 field) -Tunneling No -Undermining/Tunneling No -Circular Undermining No -Exudate Amt Large Large None Present -Exudate Type Serosanguineous Yellow/Green -Wound Margin Distinct, Distinct, Distinct, Outline Outline Outline Attached Attached Attached -Granulation Amt Large (67-100%) Large (67-100%) Medium (34-66%) -Granulation Quality Red Red Bolton -Slough/Fibrin Yes -Necrosis Amt Small (1-33%) Medium (34-66%) -Necrotic Tissue Type Adherent Slough Adherent Slough -Structure Exposed N/A -Texture (Adrianna-wound Skin Appearance) Assessed Assessed Assessed -Moisture (Adrianna-wound Skin Appearance) Assessed, Assessed Assessed Weeping -Color (Adrianna-wound Skin Appearance) Assessed Assessed, Assessed Erythema -Temperature (Adrianna-wound Skin No Abnormality No Abnormality No Abnormality Appearance) (Pt Warm) (Pt Warm) (Pt Warm) -Tenderness on Palpation (Adrianna-wound No No No Skin Appearance) -Ulcer Cleansing Soap and Water Soap and Water Wound Cleanser -Foul Odor after Cleansing No No No -Anesthetic Used 4% Lidocaine 4% Lidocaine 5% Lidocaine Solution Solution Gel Lower Limb Edema Present Yes Right Calf (cm) 54 47.5 54.2 Right Ankle (cm) 29.5 28.7 27.5 Left Calf (cm) 54.5 48 53 Left Ankle (cm) 31 29 29 03/17/24 09:33 Wound Center Nurse 1 #11 RT POST CLUSTER -Combined with other wound -Current Size (cm) - Length -Current Size (cm) - Width -Current Size (cm) - Depth -Total Square Cm -Tunneling -Undermining/Tunneling -Circular Undermining -Exudate Amt -Exudate Type -Wound Margin -Granulation Amt -Granulation Quality -Slough/Fibrin -Necrosis Amt -Necrotic Tissue Type -Structure Exposed -Texture (Adrianna-wound Skin Appearance) -Moisture (Adrianna-wound Skin Appearance) -Color (Adrianna-wound Skin Appearance) -Temperature (Adrianna-wound Skin Appearance) -Tenderness on Palpation (Adrianna-wound Skin Appearance) -Ulcer Cleansing -Foul Odor after Cleansing -Anesthetic Used #10 RT LAT LE -Combined with other wound -Current Size (cm) - Length -Current Size (cm) - Width -Current Size (cm) - Depth -Total Square Cm -Date of Last Picture (Recall this field) -Tunneling -Undermining/Tunneling -Circular Undermining -Exudate Amt -Exudate Type -Wound Margin -Granulation Amt -Granulation Quality -Slough/Fibrin -Necrosis Amt -Necrotic Tissue Type -Structure Exposed -Texture (Adrianna-wound Skin Appearance) -Moisture (Adrianna-wound Skin Appearance) -Color (Adrianna-wound Skin Appearance) -Temperature (Adrianna-wound Skin Appearance) -Tenderness on Palpation (Adrianna-wound Skin Appearance) -Ulcer Cleansing -Foul Odor after Cleansing -Anesthetic Used #9 LT LAT LE -Combined with other wound -Current Size (cm) - Length -Current Size (cm) - Width -Current Size (cm) - Depth -Total Square Cm -Date of Last Picture (Recall this field) -Tunneling -Undermining/Tunneling -Circular Undermining -Exudate Amt -Exudate Type -Wound Margin -Granulation Amt -Granulation Quality -Slough/Fibrin -Necrosis Amt -Necrotic Tissue Type -Structure Exposed -Texture (Adrianna-wound Skin Appearance) -Moisture (Adrianna-wound Skin Appearance) -Color (Adrianna-wound Skin Appearance) -Temperature (Adrianna-wound Skin Appearance) -Tenderness on Palpation (Adrianna-wound Skin Appearance) -Ulcer Cleansing -Foul Odor after Cleansing -Anesthetic Used Lower Limb Edema Present Yes Right Calf (cm) 57 Right Ankle (cm) 30.5 Left Calf (cm) 55.5 Left Ankle (cm) 30 WC - Nurse 2 - General Ulcer CM Notes Start: 02/25/24 10:19 Freq: Status: Active Protocol: Activity Type Activity Date Activity User E-sign Co-sign Detail Recorded Client Recorded Date Recorded By Document 02/25/24 11:22 [id number] 02/25/24 11:23 Document 03/03/24 09:05 [id number] 03/03/24 09:16 Document 03/10/24 10:23 [id number] 03/10/24 10:28 Document 03/17/24 10:14 [id number] 03/17/24 10:15 02/25/24 03/03/24 03/10/24 11:22 09:05 10:23 Wound Center Nurse 2 #11 RT POST CLUSTER -Time 09:05 10:27 -Correct Patient Yes Yes -Correct Side, Site, Position Yes Yes -Wound/Ulcer Outcome Healed- Epithelialized #10 RT LAT LE -Time 11: 09:05 10:27 -Correct Patient Yes Yes Yes -Correct Side, Site, Position Yes Yes Yes -Wound/Ulcer Outcome Not Healed -Wound Comment(s) NO DEBRIDEMENT JUST COMPRESSION #9 LT LAT LE -Time 11: 09:05 10:27 -Correct Patient Yes Yes Yes -Correct Side, Site, Position Yes Yes Yes -Correct Procedure Yes -Procedure Performed Yes -Type of Procedure Debridement -Clinical Debridement Epidermis / Dermis -Tissue Removed Epidermis -Post Debridement (cm) - Length 6.5 -Post Debridement (cm) - Width 10.0 -Post Debridement (cm) - Depth 0.1 -Total Square (Post) (cm) 65.00 -Area of Debridement (cm) - Length 6.5 -Area of Debridement (cm) - Width 10.0 -Total Square (Area) (cm) 65.00 -Tunneling No -Undermining/Tunneling No -Circular Undermining No -Wound/Ulcer Outcome Not Healed Not Healed Healed- Epithelialized -Ulcer Cleansing Rinsed/ Irrigated with Saline -Foul Odor after Cleansing No -Bioengineered Tissue No -Bleeding Controlled with Pressure -Treatment Response Procedure Tolerated Well -Debridement - Open, 1st 20sq cm Yes -Debridement, Open, ea addt'l 20sq cm 3 or part thereof -Wound Comment(s) NO DEBRIDEMENT, JUST COMPRESSION Pain Scale: 0-10 Numeric Is Patient Pain Free? Yes Yes Yes 03/17/24 10:14 Wound Center Nurse 2 #11 RT POST CLUSTER -Time -Correct Patient -Correct Side, Site, Position -Wound/Ulcer Outcome #10 RT LAT LE -Time -Correct Patient -Correct Side, Site, Position -Wound/Ulcer Outcome -Wound Comment(s) #9 LT LAT LE -Time -Correct Patient -Correct Side, Site, Position -Correct Procedure -Procedure Performed -Type of Procedure -Clinical Debridement -Tissue Removed -Post Debridement (cm) - Length -Post Debridement (cm) - Width -Post Debridement (cm) - Depth -Total Square (Post) (cm) -Area of Debridement (cm) - Length -Area of Debridement (cm) - Width -Total Square (Area) (cm) -Tunneling -Undermining/Tunneling -Circular Undermining -Wound/Ulcer Outcome -Ulcer Cleansing -Foul Odor after Cleansing -Bioengineered Tissue -Bleeding Controlled with -Treatment Response -Debridement - Open, 1st 20sq cm -Debridement, Open, ea addt'l 20sq cm or part thereof -Wound Comment(s) Pain Scale: 0-10 Numeric Is Patient Pain Free? Yes WC - Nurse 3 - General Ulcer D/C NN Start: 02/25/24 10:19 Freq: Status: Active Protocol: Activity Type Activity Date Activity User E-sign Co-sign Detail Recorded Client Recorded Date Recorded By Document 02/25/24 12:02 RB [id number] 02/25/24 12:03 RB Document 03/03/24 09:46 MT [id number] 03/03/24 09:47 MT Document 03/10/24 11:03 ML [id number] 03/10/24 11:05 ML Document 03/17/24 10:32 RB [id number] 03/17/24 10:33 RB 02/25/24 03/03/24 03/10/24 12:02 09:46 11:03 Wound Care Center Nurse 3 #11 RT POST CLUSTER -Primary Dressing Applied Mepilex Border -Other Dressing tubi -Mepilex Border 1 #10 RT LAT LE -Primary Dressing Applied Optilok 8x12 -Optilok 8x12 1 #9 LT LAT LE -Ulcer Cleansing Rinsed/ Irrigated with Saline -Primary Dressing Applied Optilok 8x12 Aquacel Extra Mepilex Border -Aquacel Extra 1 -Mepilex Border 1 -Optilok 8x12 1 BILAT LE -Multi-Layered Wrap Application Unna Boot - Unna Boot - Bilateral ($) Bilateral ($) -Tubular Bandage Double Layer -Size of Tubigrip Used Size F -Size F ($) 2 Treatment Response Procedure Tolerated Well Pain Scale: 0-10 Numeric Is Patient Pain Free? Yes Yes Yes Teaching: Wound Center Control Swelling with Leg Elevation -Person Taught Patient -Teaching Method Discussion, Demonstration -Response to teaching Verbalize Understanding WC - Visit Discharge Discharge Condition Stable Ambulatory Status Ambulatory, Walker Transportation Private Auto Medication Reconcilliation completed & No provided to patient/care provider Clinical Summary of Care Provided Yes 03/17/24 10:32 Wound Care Center Nurse 3 #11 RT POST CLUSTER -Primary Dressing Applied -Other Dressing -Mepilex Border #10 RT LAT LE -Primary Dressing Applied -Optilok 8x12 #9 LT LAT LE -Ulcer Cleansing Rinsed/ Irrigated with Saline -Primary Dressing Applied Mepilex Border -Aquacel Extra -Mepilex Border 1 -Optilok 8x12 BILAT LE -Multi-Layered Wrap Application -Tubular Bandage Double Layer -Size of Tubigrip Used Size F -Size F ($) 4 Treatment Response Procedure Tolerated Well Pain Scale: 0-10 Numeric Is Patient Pain Free? Yes Teaching: Wound Center Control Swelling with Leg Elevation -Person Taught -Teaching Method -Response to teaching WC - Visit Discharge Discharge Condition Stable Ambulatory Status Ambulatory, Walker Transportation Private Auto Medication Reconcilliation completed & No provided to patient/care provider Clinical Summary of Care Provided Yes Assessment/Plan Assessment/Plan (1) Debility: CODE(S): R53.81 - Other malaise (2) Osteoarthritis: CODE(S): M19.90 - Unspecified osteoarthritis, unspecified site QUALIFIERS: Osteoarthritis location: multiple joints Osteoarthritis type: primary Qualified Code(s): M15.9 - Polyosteoarthritis, unspecified (3) COPD (chronic obstructive pulmonary disease): CODE(S): J44.9 - Chronic obstructive pulmonary disease, unspecified QUALIFIERS: COPD type: unspecified COPD Qualified Code(s): J44.9 - Chronic obstructive pulmonary disease, unspecified (4) Edema of both lower extremities: CODE(S): R60.0 - Localized edema (5) Venous insufficiency: CODE(S): I87.2 - Venous insufficiency (chronic) (peripheral) (6) Chronic hypoxemic respiratory failure: CODE(S): J96.11 - Chronic respiratory failure with hypoxia (7) Pulmonary hypertension: CODE(S): I27.20 - Pulmonary hypertension, unspecified (8) Morbid obesity with BMI of 45.0-49.9, adult: CODE(S): E66.01 - Morbid (severe) obesity due to excess calories; Z68.42 - Body mass index [BMI] 45.0-49.9, adult (9) Lymphedema: CODE(S): I89.0 - Lymphedema, not elsewhere classified (10) Hypothyroidism: CODE(S): E03.9 - Hypothyroidism, unspecified QUALIFIERS: Hypothyroidism type: unspecified Qualified Code(s): E03.9 - Hypothyroidism, unspecified (11) Type 2 diabetes mellitus: CODE(S): E11.9 - Type 2 diabetes mellitus without complications QUALIFIERS: Diabetes mellitus mcc insulin use: without mcc use Diabetes mellitus complication status: with other specified complication Qualified Code(s): E11.69 - Type 2 diabetes mellitus with other specified complication (12) DOLORES (obstructive sleep apnea): CODE(S): G47.33 - Obstructive sleep apnea (adult) (pediatric) (13) Venous ulcer of right lower extremity without varicose veins: CODE(S): I87.2 - Venous insufficiency (chronic) (peripheral); L97.919 - Non-pressure chronic ulcer of unspecified part of right lower leg with unspecified severity PLAN: Plan Evaluation and examination performed today in clinic as annotated above. Chart reviewed for previous testing and history. At home wound-care instructions: Edema will be treated with tubigrips in a double layer and have her use lymphedema pumps. Will apply a foam dressing again today to the left lateral LE to pad and protect. She was instructed to keep dressings clean and dry. Will have her use lymphedema pumps for 60 minutes 2-3 times daily. Off-loading: The patient was instructed to avoid pressure and friction on the affected areas. Reposition every 2 hours at minimum. Avoid prolonged standing and/or dangling of legs. When seated, feet should be elevated at chest level. Frequent ambulation is encouraged. Diet: Patient encouraged to increase protein intake while taking caution to avoid high carbohydrate and/or sugar intake. Encouraged weight loss. Labs/cultures/imaging: Encouraged her to get her CPAP mask to improve DOLORES and pulmonary HTN treatment compliance which is adding to her decompensated lymphedema. Follow-up: Will have her follow up in 1 week. Return sooner or report to the emergency room should symptoms worsen, or new symptoms arise. Note: [employer] speech recognition analytical data miner software was used to create portions of this document. Sound-alike and misspelled words, as well as other analytical data miner errors may be contained in the documentation.
== END 2024-03-20 23:59 | disposition home or self-care (01) ==
LOC: WC 09:15
PROVIDERS: PCP Internal Medicine; Referring Provider Internal Medicine; Visit Provider Family Medicine
DX: E11.622 Type 2 diabetes mellitus with other skin ulcer (principal); L97.811 Non-pressure chronic ulcer of other part of right lower leg limited to breakdown of skin; J96.11 Chronic respiratory failure with hypoxia; I50.9 Heart failure, unspecified; I27.20 Pulmonary hypertension, unspecified; J44.9 Chronic obstructive pulmonary disease, unspecified; E66.01 Morbid (severe) obesity due to excess calories; Z68.42 Body mass index [BMI] 45.0-49.9, adult; E11.69 Type 2 diabetes mellitus with other specified complication; M79.89 Other specified soft tissue disorders; G47.33 Obstructive sleep apnea (adult) (pediatric); R60.0 Localized edema; M79.605 Pain in left leg; I87.2 Venous insufficiency (chronic) (peripheral); R32 Unspecified urinary incontinence; R53.81 Other malaise; I89.0 Lymphedema, not elsewhere classified; E03.9 Hypothyroidism, unspecified; Z79.890 Hormone replacement therapy; Z79.899 Other long term (current) drug therapy; Z86.718 Personal history of other venous thrombosis and embolism
CPT/HCPCS: 29580; 97597; 97598; 99213; G0463

== ENCOUNTER 2024-03-29 10:48 | Outpatient (RCR) | payer MEDICARE, MEDICAID, SELFPAY ==
--- NOTE | 2024-03-29 13:36 | HP.PTEVAL_ITS ---
Patient's Visit Information Visit Information Visit Information: JERRY BRO is a 74 year old F referred to Physical Therapy by Dr. Jon Hansen DO with a diagnosis of L knee pain. Date of Evaluation: 03/29/24 Physical Therapist: Jaguar Ly DPT Visit Plan Frequency: 1x/Week Duration: 6 Weeks Plan: Pt. has multiple co morbidities effecting what she can and can not do. Pt. given LAQ, seated marching, ankle pumps and to progress walking in her home. 1) nustep to work on ROM and endurance 2) Progressive walking program Pt. unable to lie down due to difficulty breathing Subjective Subjective: Pt. is here today for her initial evaluation with diagnosis of L unilateral OA. Pt. reports having increased L knee pain for a few years, but has become worse recently. Pt. reports being very sedentary with her life style. Pt. had her R knee replaced ~15 years ago. Pt. did see a physician whom recommended pain management for her knee pain. Pt. has multiple co morbidities including: morbid obesity, venous insufficiency, bilateral lower extremity DVT, venous ulcer right lower extremity, debility, chronic ulcer left lower extremity, g astric ulcer, COPD, edema bilateral lower extremity, peripheral vascular disease, chronic hypoxemic respiratory failure, pulmonary hypertension, left ventricular hypertrophy, lymphedema, hypothyroidism, type 2 diabetes. Pt. reports that her pain has become very pain to the point where she does not do much walking. She stays at home, if she does leave she uses a motorized wc at the grocery store. Pt. is hopeful to reduce symptoms in order to get back to doing her household work without issues. Pain L knee: Pain Intensity (Out of 10): 6 Pain Intensity Range: 4 and 10 Objective Objective: POSTURE: Pt. has general flexed posture, heavily uses AD in stance with fwrd lean. Pt. uses UEs to off load LEs. PALPATION: Pt. has tenderness throughout medial joint line of L knee. Pt. has her distal LEs wrapped. She reports having blistering from excessive water retention and with cellulitis. NEURO: Pt. is lacking sensation throughout BLEs, Pt. has normal DTR of B patella. ROM: L knee: 0-8-90deg. Pt. has pain at both ends of ranges. Tightness in HS noted as well. GAIT: Pt. ambulates with rollator with flexed posture, heavily uses UEs on rollator. Balance/Special Test Scores Lower Extremity Functional Score: 16 Goals Goal 1:: LTG: Pt. to be I with HEP. Goal Time Frame: 4-6 Weeks Goal 2:: LTG: Pt. to have decreased L knee pain to 0-2/10 allowing for increased tolerance to functional mobility. Goal Time Frame: 4-6 Weeks Goal 3:: LTG: Pt. to be able to ambulate 200' with rollator with 0-3/10 pain in L knee allowing for increased tolerance to functional mobility. Goal Time Frame: 4-6 Weeks Goal 4:: LTG: Pt. to complete all ADLs 0-2/10 pain in L knee Goal Time Frame: 4-6 Weeks Goal 5:: LTG: Pt. to complete 30sec sit to stand rep test with use of BUEs to 6 reps. Goal Time Frame: 4-6 Weeks Rehabilitation Potential Physical Therapy Diagnosis: Pt. has signs and symptoms consistent with L knee OA. Pt. has marked number of co morbidities that her limiting her as well. Pt. has marked hypomobility, weakness, increased pain and difficulty with walking. Pt. would benefit from PT to work on general mobility and to increase her LLE strength and tolerance to ambulation. Rehabilitation Potential: Fair Anticipated Interventions Patient/Client Instruction: Educate patient on: Condition, Plan of Care, Risk Factors and Benefits of Fitness Program For the Purpose of:: To improve decision making, To facilitate caregiver knowledge, To improve self management, To prevent re-injury, To improve ability to perform tasks related to life management and To improve tolerance to ADL's Therapeutic Exercise to Include: Strength training, Power training, Endurance training, Postural training, Flexibilty training, Gait and locomotor training, Passive ROM and Active ROM For the Purpose of:: To decrease pain, To decrease swelling/inflammation, To increase ROM, To improve nutrient delivery to tissue, To increase oxygenation perfusion, To improve muscle performance and motor function and To improve ability to perform ADL's Text: Thank you for the opportunity to evaluate your patient. For Medicare and Medicare HMO plans, please review the plan of care and approve it. It will need to be FAXED BACK to us at [phone] for Medicare purposes. For Medicare only, by signing this I certify the plan of care. Please let me know if there are questions or concerns regarding this plan of care. Physician Signature: Date:
== END 2024-03-29 19:00 | disposition home or self-care (01) ==
LOC: PT 10:48
PROVIDERS: PCP Internal Medicine; Referring Provider Orthopaedic Surgery; Visit Provider Orthopaedic Surgery
DX: M17.12 Unilateral primary osteoarthritis, left knee (principal)
CPT/HCPCS: 97161

== ENCOUNTER 2024-04-14 11:30 | Outpatient (RCR) | payer MEDICARE, MEDICAID, SELFPAY ==
[2024-03-21 00:28] VITALS: BP 160/93; PULSE 83; RESP 18; TEMP 36.4; O2SAT 94; BMI 49.8
[2024-03-24 11:09] VITALS: BP 134/70; PULSE 69; RESP 18; TEMP 36.5; BMI 49.8
--- NOTE | 2024-03-24 12:16 | PCM.WC.PN ---
History of Present Illness Date of Service: 03/24/24 Chief Complaint: B/L LE ulcers, bilateral lower extremity swelling History of Wound: Liz is a pleasant 74 yo woman that presents to the wound center for bilateral lower extremity edema and blisters and drainage of her bilateral lower extremities. She has had increased edema the last 2 weeks and her legs started seeping a few days ago. She has been wearing her tubigrip compression and had been using the lymphedema pumps until they started seeping fluid. She tries to elevate her legs when she is sitting but is not always consistent with doing this. She has been wrapping her leg with gauze when it is seeping but otherwise has not been doing any regular dressings. Patient has been treated at the wound center in the past for similar wounds, most recently October 2023. She has also been seen in the vascular surgery clinic where she was evaluated her for BLE DVT and venous insufficiency. 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 GSV ablation has been done to her right lower leg. She has received lymphedema pumps that were ordered during her last treatment course and has been using these. Last venous study was 03/2022. Last A1C 01/2023 was 6.4%. Last TSH - 01/2022 Patient's medical history is also significant for CHF, COPD, T2DM, lymphedema. She has a CPAP but has not been using this due to needing a new mask. She states that a prescription was to be sent and she never received the mask. Her current mask has a hole in it. Subjective Subjective Liz returns today for treatment of edema to bilateral lower legs. She tolerated tubigrip compression and lymphedema pumps. The left lateral leg is worse with serous drainage that is moderate to heavy with skin breakdown. She has been elevating her legs and using lymphedema pumps as directed. She denies fever, chills. Objective Data Objective Data Vital Signs: Vital Signs Temp Pulse Resp BP Pulse Ox O2 Del Method 97.7 F L 69 18 134/70 H 94 Room Air 03/24/24 11:09 03/24/24 11:09 03/24/24 11:09 03/24/24 11:09 03/21/24 00:28 03/24/24 11:09 Oxygen Delivery Method Room Air Weight: 140.16 kg Body Mass Index (BMI) 49.8 Physical Exam Const alert, oriented x3 and no apparent distress General Appearance: cooperative and comfortable Nutritional Appearance: obese HEENT normocephalic and head/scalp atraumatic Lymph Lymphatic: lymphedema severe and pitting Resp normal respiratory effort Effort and Inspection: able to speak in complete sentences Cardio regular rate and regular rhythm Extremity General Extremity: edema bilateral lower extremity Details: severe (with skin changes associated with lymphedema, thickened nodular appearance from mid allen to ankle) Skin General Skin Exam: erythema, venous stasis and dermatitis Wounds: wounds noted Wound Narrative: as in clinical panel Psych mental status grossly normal, thought process normal, cooperative and affect normal Debridement Note Debridement Note Wound debrided: left lateral LE Laterality: Left Type of Debridement: Excisional debridement Anesthesia Used: 4% Lidocaine Solution Depth: Down to and including healthy tissue Percentage of wound debrided: 100 Instrument Used: - (gauze) Tissue Removed: Yellow slough, devitalized tissue Severity: Fat Layer Exposed Amount of bleeding with debridement: None Patient tolerated procedure: Patient tolerated procedure well Post-Debridement Measurements and Additional Note: Post-Debridement Measurements/Treatment - Nurse 1 - General Ulcer Assessment Start: 03/24/24 11:09 Freq: Status: Active Protocol: [email or web address].[email or web address] Activity Type Activity Date Activity User E-sign Co-sign Detail Recorded Client Recorded Date Recorded By Document 03/24/24 11:09 GENEVA [id number] 03/24/24 11:18 03/24/24 11:09 - Today's Visit Information Type of service Follow-up Visit (Physician/VOLUNTEER SERVICES SUPERVISOR ) Arrival Mode Ambulatory Accompanied by Patient Identification Verified (Name & Yes ) Height and Weight Body Mass Index (BMI) 49.8 BMI Classification Obese Vital Signs Temperature (97.8 F-99.1 F) 97.7 F L Temperature Source Temporal Pulse Rate (60-100) 69 Pulse Location Monitor Respiratory Rate (12-18) 18 Respiratory rate source Observation Oxygen Delivery Method Room Air Blood Pressure (90/60-120/80) 134/70 H Blood Pressure Mean (mm Hg) 91 Source Monitor Position Sitting Blood Pressure Location Left Arm History Since Last Visit- (Skip if this is Patient's initial visit) Have you changed medications since your No last visit? Any new allergies or adverse reactions No Had a fall/change in ADL's that may No increase risk of falls Signs or symptoms of abuse and/or No neglect since last visit Have you been in the hospital since your No last visit? Has dressing in place as prescribed Yes Has compression in place as prescribed Yes Has offloadiing in place as prescribed N/A Experienced any changes in pain level or No management Left Footwear Regular Shoe Right Footwear Regular Shoe Pain Scale: 0-10 Numeric Is Patient Pain Free? Yes WC - Nurse 1 - General Ulcer Measurement Start: 03/24/24 11:09 Freq: Status: Active Protocol: Activity Type Activity Date Activity User E-sign Co-sign Detail Recorded Client Recorded Date Recorded By Document 03/24/24 11:09 KW [id number] 03/24/24 11:18 KW 03/24/24 11:09 Wound Center Nurse 1 Right Calf (cm) 56 Right Ankle (cm) 30.5 Left Calf (cm) 53 Left Ankle (cm) 30.5 WC - Nurse 2 - General Ulcer CM Notes Start: 03/24/24 11:09 Freq: Status: Active Protocol: Activity Type Activity Date Activity User E-sign Co-sign Detail Recorded Client Recorded Date Recorded By Document 03/24/24 11:30 GM [id number] 03/24/24 11:37 03/24/24 11:30 Wound Center Nurse 2 8. LLE lateral -Time 11:37 -Correct Patient Yes -Correct Side, Site, Position Yes -Correct Procedure Yes -Procedure Performed Yes -Type of Procedure Debridement -Clinical Debridement Epidermis / Dermis -Tissue Removed Epidermis -Tunneling No -Undermining/Tunneling No -Circular Undermining No -Wound/Ulcer Outcome Not Healed -Ulcer Cleansing Rinsed/ Irrigated with Saline -Foul Odor after Cleansing No -Bioengineered Tissue No -Bleeding Controlled with NA -Treatment Response Procedure Tolerated Well -Debridement - Open, 1st 20sq cm Yes Pain Scale: 0-10 Numeric Is Patient Pain Free? Yes - Nurse 3 - General Ulcer D/C NN Start: 03/24/24 11:09 Freq: Status: Active Protocol: Activity Type Activity Date Activity User E-sign Co-sign Detail Recorded Client Recorded Date Recorded By Document 03/24/24 11:55 RB [id number] 03/24/24 11:56 RB 03/24/24 11:55 Wound Care Center Nurse 3 8. LLE lateral -Ulcer Cleansing Rinsed/ Irrigated with Saline -Primary Dressing Applied Aquacel Extra, Mepilex Border -Aquacel Extra 1 -Mepilex Border 1 BILAT LE -Tubular Bandage Double Layer -Size of Tubigrip Used Size F -Size F ($) 4 Treatment Response Procedure Tolerated Well Pain Scale: 0-10 Numeric Is Patient Pain Free? Yes WC - Visit Discharge Discharge Condition Stable Ambulatory Status Ambulatory, Walker Transportation Private Auto Medication Reconcilliation completed & No provided to patient/care provider Clinical Summary of Care Provided Yes Assessment/Plan Assessment/Plan (1) Non-pressure chronic ulcer left lower leg, limited to breakdown skin: CODE(S): L97.921 - Non-pressure chronic ulcer of unspecified part of left lower leg limited to breakdown of skin (2) Venous insufficiency: CODE(S): I87.2 - Venous insufficiency (chronic) (peripheral) (3) Edema of both lower extremities: CODE(S): R60.0 - Localized edema (4) Lymphedema: CODE(S): I89.0 - Lymphedema, not elsewhere classified (5) Essential hypertension: CODE(S): I10 - Essential (primary) hypertension (6) Morbid obesity with BMI of 45.0-49.9, adult: CODE(S): E66.01 - Morbid (severe) obesity due to excess calories; Z68.42 - Body mass index [BMI] 45.0-49.9, adult (7) Venous stasis 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: CODE(S): I83.023 - Varicose veins of left lower extremity with ulcer of ankle; L97.321 - Non-pressure 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 QUALIFIERS: Varicose vein presence: with varicose veins Qualified Code(s): I83.023 - Varicose veins of left lower extremity with ulcer of ankle; L97.321 - Non-pressure 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 (8) Debility: CODE(S): R53.81 - Other malaise (9) Osteoarthritis: CODE(S): M19.90 - Unspecified osteoarthritis, unspecified site QUALIFIERS: Osteoarthritis location: multiple joints Osteoarthritis type: primary Qualified Code(s): M15.9 - Polyosteoarthritis, unspecified (10) COPD (chronic obstructive pulmonary disease): CODE(S): J44.9 - Chronic obstructive pulmonary disease, unspecified QUALIFIERS: COPD type: unspecified COPD Qualified Code(s): J44.9 - Chronic obstructive pulmonary disease, unspecified (11) Chronic hypoxemic respiratory failure: CODE(S): J96.11 - Chronic respiratory failure with hypoxia (12) Pulmonary hypertension: CODE(S): I27.20 - Pulmonary hypertension, unspecified (13) Hypothyroidism: CODE(S): E03.9 - Hypothyroidism, unspecified QUALIFIERS: Hypothyroidism type: unspecified Qualified Code(s): E03.9 - Hypothyroidism, unspecified (14) Type 2 diabetes mellitus: CODE(S): E11.9 - Type 2 diabetes mellitus without complications QUALIFIERS: Diabetes mellitus tank terminal gauger insulin use: without tank terminal gauger use Diabetes mellitus complication status: with other specified complication Qualified Code(s): E11.69 - Type 2 diabetes mellitus with other specified complication (15) DOLORES (obstructive sleep apnea): CODE(S): G47.33 - Obstructive sleep apnea (adult) (pediatric) (16) Venous ulcer of right lower extremity without varicose veins: CODE(S): I87.2 - Venous insufficiency (chronic) (peripheral); L97.919 - Non-pressure chronic ulcer of unspecified part of right lower leg with unspecified severity PLAN: Plan Evaluation and debridement performed today in clinic as annotated above. Chart reviewed for previous testing and history. At home wound-care instructions: Edema will be treated with tubigrips in a double layer and have her use lymphedema pumps. Will have her use Aquacel and cover with a foam dressing to the left lateral LE changed daily for moderate to heavy drainage. She was instructed to keep dressings clean and dry. Will have her use lymphedema pumps for 60 minutes 2-3 times daily. Off-loading: The patient was instructed to avoid pressure and friction on the affected areas. Reposition every 2 hours at minimum. Avoid prolonged standing and/or dangling of legs. When seated, feet should be elevated at chest level. Frequent ambulation is encouraged. Diet: Patient encouraged to increase protein intake while taking caution to avoid high carbohydrate and/or sugar intake. Encouraged weight loss. Labs/cultures/imaging: Encouraged her to get her CPAP mask to improve DOLORES and pulmonary HTN treatment compliance which is adding to her decompensated lymphedema. Follow-up: Will have her follow up in 1 week. Return sooner or report to the emergency room should symptoms worsen, or new symptoms arise. Note: The [employer] speech recognition network contract manager software was used to create portions of this document. Sound-alike and misspelled words, as well as other network contract manager errors may be contained in the documentation.
--- NOTE | 2024-03-24 13:19 | PCM.WC.PN ---
History of Present Illness Date of Service: 03/24/24 Chief Complaint: B/L LE ulcers, bilateral lower extremity swelling History of Wound: Liz is a pleasant 74 yo woman that presents to the wound center for bilateral lower extremity edema and blisters and drainage of her bilateral lower extremities. She has had increased edema the last 2 weeks and her legs started seeping a few days ago. She has been wearing her tubigrip compression and had been using the lymphedema pumps until they started seeping fluid. She tries to elevate her legs when she is sitting but is not always consistent with doing this. She has been wrapping her leg with gauze when it is seeping but otherwise has not been doing any regular dressings. Patient has been treated at the wound center in the past for similar wounds, most recently October 2023. She has also been seen in the vascular surgery clinic where she was evaluated her for BLE DVT and venous insufficiency. 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 GSV ablation has been done to her right lower leg. She has received lymphedema pumps that were ordered during her last treatment course and has been using these. Last venous study was 03/2022. Last A1C 01/2023 was 6.4%. Last TSH - 01/2022 Patient's medical history is also significant for CHF, COPD, T2DM, lymphedema. She has a CPAP but has not been using this due to needing a new mask. She states that a prescription was to be sent and she never received the mask. Her current mask has a hole in it. Subjective Subjective Liz returns today for treatment of edema to bilateral lower legs. She tolerated tubigrip compression and lymphedema pumps. The left lateral leg is worse with serous drainage that is moderate to heavy with skin breakdown. She has been elevating her legs and using lymphedema pumps as directed. She denies fever, chills. Objective Data Objective Data Vital Signs: Vital Signs Temp Pulse Resp BP Pulse Ox O2 Del Method 97.7 F L 69 18 134/70 H 94 Room Air 03/24/24 11:09 03/24/24 11:09 03/24/24 11:09 03/24/24 11:09 03/21/24 00:28 03/24/24 11:09 Oxygen Delivery Method Room Air Weight: 140.16 kg Body Mass Index (BMI) 49.8 Debridement Note Debridement Note Post-Debridement Measurements and Additional Note: Post-Debridement Measurements/Treatment WC - Nurse 1 - General Ulcer Assessment Start: 03/24/24 11:09 Freq: Status: Active Protocol: KELSEY Activity Type Activity Date Activity User E-sign Co-sign Detail Recorded Client Recorded Date Recorded By Document 03/24/24 11:09 KW [id number] 03/24/24 11:18 03/24/24 11:09 WC - Today's Visit Information Type of service Follow-up Visit (Physician/ORAL HYGIENIST ) Arrival Mode Ambulatory Accompanied by Patient Identification Verified (Name & Yes ) Height and Weight Body Mass Index (BMI) 49.8 BMI Classification Obese Vital Signs Temperature (97.8 F-99.1 F) 97.7 F L Temperature Source Temporal Pulse Rate (60-100) 69 Pulse Location Monitor Respiratory Rate (12-18) 18 Respiratory rate source Observation Oxygen Delivery Method Room Air Blood Pressure (90/60-120/80) 134/70 H Blood Pressure Mean (mm Hg) 91 Source Monitor Position Sitting Blood Pressure Location Left Arm History Since Last Visit- (Skip if this is Patient's initial visit) Have you changed medications since your No last visit? Any new allergies or adverse reactions No Had a fall/change in ADL's that may No increase risk of falls Signs or symptoms of abuse and/or No neglect since last visit Have you been in the hospital since your No last visit? Has dressing in place as prescribed Yes Has compression in place as prescribed Yes Has offloadiing in place as prescribed N/A Experienced any changes in pain level or No management Left Footwear Regular Shoe Right Footwear Regular Shoe Pain Scale: 0-10 Numeric Is Patient Pain Free? Yes JESÚS - Nurse 1 - General Ulcer Measurement Start: 03/24/24 11:09 Freq: Status: Active Protocol: Activity Type Activity Date Activity User E-sign Co-sign Detail Recorded Client Recorded Date Recorded By Document 03/24/24 11:09 GENEVA [id number] 03/24/24 11:18 03/24/24 11:09 Wound Center Nurse 1 Right Calf (cm) 56 Right Ankle (cm) 30.5 Left Calf (cm) 53 Left Ankle (cm) 30.5 JESÚS - Nurse 2 - General Ulcer CM Notes Start: 03/24/24 11:09 Freq: Status: Active Protocol: Activity Type Activity Date Activity User E-sign Co-sign Detail Recorded Client Recorded Date Recorded By Document 03/24/24 11:30 [id number] 03/24/24 11:37 03/24/24 11:30 Wound Center Nurse 2 8. LLE lateral -Time 11:37 -Correct Patient Yes -Correct Side, Site, Position Yes -Correct Procedure Yes -Procedure Performed Yes -Type of Procedure Debridement -Clinical Debridement Epidermis / Dermis -Tissue Removed Epidermis -Tunneling No -Undermining/Tunneling No -Circular Undermining No -Wound/Ulcer Outcome Not Healed -Ulcer Cleansing Rinsed/ Irrigated with Saline -Foul Odor after Cleansing No -Bioengineered Tissue No -Bleeding Controlled with NA -Treatment Response Procedure Tolerated Well -Debridement - Open, 1st 20sq cm Yes Pain Scale: 0-10 Numeric Is Patient Pain Free? Yes - Nurse 3 - General Ulcer D/C NN Start: 03/24/24 11:09 Freq: Status: Active Protocol: Activity Type Activity Date Activity User E-sign Co-sign Detail Recorded Client Recorded Date Recorded By Document 03/24/24 11:55 RB [id number] 03/24/24 11:56 RB 03/24/24 11:55 Wound Care Center Nurse 3 8. LLE lateral -Ulcer Cleansing Rinsed/ Irrigated with Saline -Primary Dressing Applied Aquacel Extra, Mepilex Border -Aquacel Extra 1 -Mepilex Border 1 BILAT LE -Tubular Bandage Double Layer -Size of Tubigrip Used Size F -Size F ($) 4 Treatment Response Procedure Tolerated Well Pain Scale: 0-10 Numeric Is Patient Pain Free? Yes - Visit Discharge Discharge Condition Stable Ambulatory Status Ambulatory, Walker Transportation Private Auto Medication Reconcilliation completed & No provided to patient/care provider Clinical Summary of Care Provided Yes
[2024-03-31 10:44] VITALS: BP 163/77; PULSE 86; RESP 18; TEMP 35.1; BMI 49.8
--- NOTE | 2024-03-31 12:42 | PN.PCM_ITS ---
History of Present Illness Date of Service: 03/31/24 Chief Complaint: B/L LE ulcers, bilateral lower extremity swelling History of Wound: Liz is a pleasant 74 yo woman that presents to the wound center for bilateral lower extremity edema and blisters and drainage of her bilateral lower extremities. She has had increased edema the last 2 weeks and her legs started seeping a few days ago. She has been wearing her tubigrip compression and had been using the lymphedema pumps until they started seeping fluid. She tries to elevate her legs when she is sitting but is not always consistent with doing this. She has been wrapping her leg with gauze when it is seeping but otherwise has not been doing any regular dressings. Patient has been treated at the wound center in the past for similar wounds, most recently October 2023. She has also been seen in the vascular surgery clinic where she was evaluated her for BLE DVT and venous insufficiency. 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 GSV ablation has been done to her right lower leg. She has received lymphedema pumps that were ordered during her last treatment course and has been using these. Last venous study was 03/2022. Last A1C 01/2023 was 6.4%. Last TSH - 01/2022 Patient's medical history is also significant for CHF, COPD, T2DM, lymphedema. She has a CPAP but has not been using this due to needing a new mask. She states that a prescription was to be sent and she never received the mask. Her current mask has a hole in it. Subjective Subjective Liz returns today for treatment of edema to bilateral lower legs. She tolerated tubigrip compression and lymphedema pumps. The left lateral leg is worse with serous drainage that is moderate to heavy with skin breakdown. She has been elevating her legs and using lymphedema pumps as directed. She denies fever, chills. Objective Data Objective Data Vital Signs: Vital Signs Temp Pulse Resp BP Pulse Ox O2 Del Method 95.2 F L 86 18 163/77 H 94 Room Air 03/31/24 10:44 03/31/24 10:44 03/31/24 10:44 03/31/24 10:44 03/21/24 00:28 03/31/24 10:44 Oxygen Delivery Method Room Air Weight: 140.16 kg Body Mass Index (BMI) 49.8 Physical Exam Const alert, oriented x3 and no apparent distress General Appearance: cooperative and comfortable Nutritional Appearance: obese HEENT normocephalic and head/scalp atraumatic Lymph Lymphatic: lymphedema severe and pitting Resp normal respiratory effort Effort and Inspection: able to speak in complete sentences Cardio regular rate and regular rhythm Extremity General Extremity: edema bilateral lower extremity Details: severe (with skin changes associated with lymphedema, thickened nodular appearance from mid allen to ankle) Skin General Skin Exam: erythema, venous stasis and dermatitis Wounds: wounds noted Wound Narrative: as in clinical panel Psych mental status grossly normal, thought process normal, cooperative and affect normal Debridement Note Debridement Note No debridement was completed: No debridement was completed today (no slough or devitalized tissue present) Post-Debridement Measurements and Additional Note: Post-Debridement Measurements/Treatment WC - Nurse 1 - General Ulcer Assessment Start: 03/24/24 11:09 Freq: Status: Active Protocol: [email or web address] Activity Type Activity Date Activity User E-sign Co-sign Detail Recorded Client Recorded Date Recorded By Document 03/24/24 11:09 KW [id number] 03/24/24 11:18 KW Document 03/31/24 10:44 KW [id number] 03/31/24 10:47 KW 03/24/24 03/31/24 11:09 10:44 - Today's Visit Information Type of service Follow-up Visit Follow-up Visit (Physician/RELIABILITY TECHNOLOGIST (Physician/RELIABILITY TECHNOLOGIST ) ) Arrival Mode Ambulatory Ambulatory, Walker Accompanied by Patient Identification Verified (Name & Yes Yes ) Height and Weight Body Mass Index (BMI) 49.8 49.8 BMI Classification Obese Obese Vital Signs Temperature (97.8 F-99.1 F) 97.7 F L 95.2 F L Temperature Source Temporal Temporal Pulse Rate (60-100) 69 86 Pulse Location Monitor Monitor Respiratory Rate (12-18) 18 18 Respiratory rate source Observation Observation Oxygen Delivery Method Room Air Room Air Blood Pressure (90/60-120/80) 134/70 H 163/77 H Blood Pressure Mean (mm Hg) 91 105 Source Monitor Monitor Position Sitting Semi-Fowlers Blood Pressure Location Left Arm Left Arm History Since Last Visit- (Skip if this is Patient's initial visit) Have you changed medications since your No No last visit? Any new allergies or adverse reactions No No Had a fall/change in ADL's that may No No increase risk of falls Signs or symptoms of abuse and/or No No neglect since last visit Have you been in the hospital since your No No last visit? Has dressing in place as prescribed Yes Yes Has compression in place as prescribed Yes Yes Has offloadiing in place as prescribed N/A N/A Experienced any changes in pain level or No No management Left Footwear Regular Shoe Slipper Right Footwear Regular Shoe Slipper Pain Scale: 0-10 Numeric Is Patient Pain Free? Yes Yes JESÚS - Nurse 1 - General Ulcer Measurement Start: 03/24/24 11:09 Freq: Status: Active Protocol: Activity Type Activity Date Activity User E-sign Co-sign Detail Recorded Client Recorded Date Recorded By Document 03/24/24 11:09 KW [id number] 03/24/24 11:18 KW Document 03/31/24 10:44 KW [id number] 03/31/24 10:47 KW 03/24/24 03/31/24 11:09 10:44 Wound Center Nurse 1 8. LLE lateral -Current Size (cm) - Length 0.1 -Current Size (cm) - Width 0.1 -Current Size (cm) - Depth 0.1 -Total Square Cm 0.01 -Exudate Amt Medium -Exudate Type Serosanguineous -Wound Margin Indistinct, Non -Visible -Granulation Amt Large (67-100%) -Granulation Quality Red -Texture (Adrianna-wound Skin Appearance) Localized Edema -Moisture (Adrianna-wound Skin Appearance) Maceration -Color (Adrianna-wound Skin Appearance) Erythema -Temperature (Adrianna-wound Skin No Abnormality Appearance) (Pt Warm) -Tenderness on Palpation (Adrianna-wound No Skin Appearance) -Ulcer Cleansing Rinsed/ Irrigated with Saline -Foul Odor after Cleansing No Right Calf (cm) 56 59 Right Ankle (cm) 30.5 29.5 Left Calf (cm) 53 56.2 Left Ankle (cm) 30.5 32.5 JESÚS - Nurse 2 - General Ulcer CM Notes Start: 03/24/24 11:09 Freq: Status: Active Protocol: Activity Type Activity Date Activity User E-sign Co-sign Detail Recorded Client Recorded Date Recorded By Document 03/24/24 11:30 [id number] 03/24/24 11:37 Document 03/31/24 11:43 [id number] 03/31/24 11:48 03/24/24 03/31/24 11:30 11:43 Wound Center Nurse 2 8. LLE lateral -Time 11:37 11:47 -Correct Patient Yes Yes -Correct Side, Site, Position Yes Yes -Correct Procedure Yes -Procedure Performed Yes -Type of Procedure Debridement -Clinical Debridement Epidermis / Dermis -Tissue Removed Epidermis -Tunneling No -Undermining/Tunneling No -Circular Undermining No -Wound/Ulcer Outcome Not Healed Not Healed -Ulcer Cleansing Rinsed/ Irrigated with Saline -Foul Odor after Cleansing No -Bioengineered Tissue No -Bleeding Controlled with NA -Treatment Response Procedure Tolerated Well -Debridement - Open, 1st 20sq cm Yes -Wound Comment(s) not debrided 4.0 3.0 0.1 Pain Scale: 0-10 Numeric Is Patient Pain Free? Yes Yes - Nurse 3 - General Ulcer D/C NN Start: 03/24/24 11:09 Freq: Status: Active Protocol: Activity Type Activity Date Activity User E-sign Co-sign Detail Recorded Client Recorded Date Recorded By Document 03/24/24 11:55 RB [id number] 03/24/24 11:56 RB Document 03/31/24 11:59 KW [id number] 03/31/24 12:01 KW 03/24/24 03/31/24 11:55 11:59 Wound Care Center Nurse 3 8. LLE lateral -Ulcer Cleansing Rinsed/ Irrigated with Saline -Primary Dressing Applied Aquacel Extra, Aquacel AG 4x4, Mepilex Border Mepilex Border -Aquacel Extra 1 -Aquacel AG 4x4 1 -Mepilex Border 1 1 Right -Tubular Bandage Double Layer -Size of Tubigrip Used Size F -Size F ($) 2 Left -Tubular Bandage Double Layer -Size of Tubigrip Used Size F -Size F ($) 2 BILAT LE -Tubular Bandage Double Layer -Size of Tubigrip Used Size F -Size F ($) 4 Treatment Response Procedure Tolerated Well Pain Scale: 0-10 Numeric Is Patient Pain Free? Yes Yes WC - Visit Discharge Discharge Condition Stable Ambulatory Status Ambulatory, Walker Transportation Private Auto Medication Reconcilliation completed & No provided to patient/care provider Clinical Summary of Care Provided Yes Assessment/Plan Assessment/Plan (1) Non-pressure chronic ulcer left lower leg, limited to breakdown skin: CODE(S): L97.921 - Non-pressure chronic ulcer of unspecified part of left lower leg limited to breakdown of skin (2) Venous insufficiency: CODE(S): I87.2 - Venous insufficiency (chronic) (peripheral) (3) Edema of both lower extremities: CODE(S): R60.0 - Localized edema (4) Lymphedema: CODE(S): I89.0 - Lymphedema, not elsewhere classified (5) Essential hypertension: CODE(S): I10 - Essential (primary) hypertension (6) Morbid obesity with BMI of 45.0-49.9, adult: CODE(S): E66.01 - Morbid (severe) obesity due to excess calories; Z68.42 - Body mass index [BMI] 45.0-49.9, adult (7) Venous stasis 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: CODE(S): I83.023 - Varicose veins of left lower extremity with ulcer of ankle; L97.321 - Non-pressure 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 QUALIFIERS: Varicose vein presence: with varicose veins Qualified Code(s): I83.023 - Varicose veins of left lower extremity with ulcer of ankle; L97.321 - Non-pressure 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 (8) Debility: CODE(S): R53.81 - Other malaise (9) Osteoarthritis: CODE(S): M19.90 - Unspecified osteoarthritis, unspecified site QUALIFIERS: Osteoarthritis location: multiple joints Osteoarthritis type: primary Qualified Code(s): M15.9 - Polyosteoarthritis, unspecified (10) COPD (chronic obstructive pulmonary disease): CODE(S): J44.9 - Chronic obstructive pulmonary disease, unspecified QUALIFIERS: COPD type: unspecified COPD Qualified Code(s): J44.9 - Chronic obstructive pulmonary disease, unspecified (11) Chronic hypoxemic respiratory failure: CODE(S): J96.11 - Chronic respiratory failure with hypoxia (12) Pulmonary hypertension: CODE(S): I27.20 - Pulmonary hypertension, unspecified (13) Hypothyroidism: CODE(S): E03.9 - Hypothyroidism, unspecified QUALIFIERS: Hypothyroidism type: unspecified Qualified Code(s): E03.9 - Hypothyroidism, unspecified (14) Type 2 diabetes mellitus: CODE(S): E11.9 - Type 2 diabetes mellitus without complications QUALIFIERS: Diabetes mellitus complication status: with other specified complication Diabetes mellitus 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 Chart reviewed for previous testing and history. At home wound-care instructions: Edema will be treated with tubigrips in a double layer and have her continue to use lymphedema pumps. Will have her use Aquacel and cover with a foam dressing to the left lateral LE changed daily for moderate to heavy drainage. She was instructed to keep dressings clean and dry. Will have her use lymphedema pumps for 60 minutes 2-3 times daily. Off-loading: The patient was instructed to avoid pressure and friction on the affected areas. Reposition every 2 hours at minimum. Avoid prolonged standing and/or dangling of legs. When seated, feet should be elevated at chest level. Frequent ambulation is encouraged. Diet: Patient encouraged to increase protein intake while taking caution to avoid high carbohydrate and/or sugar intake. Encouraged weight loss. Labs/cultures/imaging: Wound culture taken today and started her on Ciprofloxacin based on previous culture results. Encouraged her to get her CPAP mask to improve DOLORES and pulmonary HTN treatment compliance which is adding to her decompensated lymphedema. Follow-up: Will have her follow up in 1 week. Return sooner or report to the emergency room should symptoms worsen, or new symptoms arise. Note: [employer] speech recognition fleet mechanic software was used to create portions of this document. Sound-alike and misspelled words, as well as other fleet mechanic errors may be contained in the documentation.
--- NOTE | 2024-04-05 13:08 | WC ---
Contacted patient to let her know her cultures were positive for bacteria and a second antibiotic was called into [facility] in [place]. She is instructed to pick it up and start on it right away. She stated that she understood and would pick it up and start it today.
[2024-04-07 11:08] VITALS: BP 141/73; PULSE 67; RESP 18; TEMP 36; BMI 49.8
--- NOTE | 2024-04-07 13:06 | PN.PCM_ITS ---
History of Present Illness Date of Service: 04/07/24 Chief Complaint: B/L LE ulcers, bilateral lower extremity swelling History of Wound: Liz is a pleasant 74 yo woman that presents to the wound center for bilateral lower extremity edema and blisters and drainage of her bilateral lower extremities. She has had increased edema the last 2 weeks and her legs started seeping a few days ago. She has been wearing her tubigrip compression and had been using the lymphedema pumps until they started seeping fluid. She tries to elevate her legs when she is sitting but is not always consistent with doing this. She has been wrapping her leg with gauze when it is seeping but otherwise has not been doing any regular dressings. Patient has been treated at the wound center in the past for similar wounds, most recently October 2023. She has also been seen in the vascular surgery clinic where she was evaluated her for BLE DVT and venous insufficiency. 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 GSV ablation has been done to her right lower leg. She has received lymphedema pumps that were ordered during her last treatment course and has been using these. Last venous study was 03/2022. Last A1C 01/2023 was 6.4%. Last TSH - 01/2022 Patient's medical history is also significant for CHF, COPD, T2DM, lymphedema. She has a CPAP but has not been using this due to needing a new mask. She states that a prescription was to be sent and she never received the mask. Her current mask has a hole in it. Subjective Subjective Liz returns today for treatment of edema to bilateral lower legs. She tolerated tubigrip compression and lymphedema pumps. The left lateral leg is improved but there is still some skin breakdown and moderate drainage. She is on ciprofloxacin and Linezolid for positive wound cultures with multiple bacteria. She has been elevating her legs and using lymphedema pumps as directed. She denies fever, chills. Objective Data Objective Data Vital Signs: Vital Signs Temp Pulse Resp BP Pulse Ox O2 Del Method 96.8 F L 67 18 141/73 H 94 Room Air 04/07/24 11:08 04/07/24 11:08 04/07/24 11:08 04/07/24 11:08 03/21/24 00:28 04/07/24 11:08 Oxygen Delivery Method Room Air Weight: 140.16 kg Body Mass Index (BMI) 49.8 Lab / Micro Data Micro: Microbiology 03/31/24 11:50 Wound - Leg, Left Gram Stain - Final 03/31/24 11:50 Wound - Leg, Left Wound Culture - Final Pseudomonas aeruginosa Klebsiella pneumoniae sp pneum Enterococcus faecalis Staphylococcus simulans 03/31/24 11:50 Wound - Leg, Left Anaerobic Culture - Final Actinotignum schaalii Physical Exam Const alert, oriented x3 and no apparent distress General Appearance: cooperative and comfortable Nutritional Appearance: obese HEENT normocephalic and head/scalp atraumatic Lymph Lymphatic: lymphedema severe and pitting Resp normal respiratory effort Effort and Inspection: able to speak in complete sentences Cardio regular rate and regular rhythm Extremity General Extremity: edema bilateral lower extremity Details: severe (with skin changes associated with lymphedema, thickened nodular appearance from mid allen to ankle) Skin General Skin Exam: erythema, venous stasis and dermatitis Wounds: wounds noted Wound Narrative: as in clinical panel Psych mental status grossly normal, thought process normal, cooperative and affect normal Debridement Note Debridement Note Wound debrided: left lateral LE Laterality: Left No debridement was completed: No debridement was completed today (no slough or devitalized tissue) Post-Debridement Measurements and Additional Note: Post-Debridement Measurements/Treatment - Nurse 1 - General Ulcer Assessment Start: 03/24/24 11:09 Freq: Status: Active Protocol: [email or web address].[email or web address] Activity Type Activity Date Activity User E-sign Co-sign Detail Recorded Client Recorded Date Recorded By Document 03/24/24 11:09 KW [id number] 03/24/24 11:18 KW Document 03/31/24 10:44 KW [id number] 03/31/24 10:47 KW Document 04/07/24 11:08 DS [id number] 04/07/24 11:18 DS 03/24/24 03/31/24 04/07/24 11:09 10:44 11:08 - Today's Visit Information Type of service Follow-up Visit Follow-up Visit Follow-up Visit (Physician/HUMAN SERVICES PROGRAM SPECIALIST (Physician/HUMAN SERVICES PROGRAM SPECIALIST (Physician/HUMAN SERVICES PROGRAM SPECIALIST ) ) ) Arrival Mode Ambulatory Ambulatory, Ambulatory, Walker Walker Accompanied by Patient Identification Verified (Name & Yes Yes Yes ) Patient Requires Transmission-Based No Precautions Safety Precautions Fall Prevention Height and Weight Body Mass Index (BMI) 49.8 49.8 49.8 BMI Classification Obese Obese Obese Vital Signs Temperature (97.8 F-99.1 F) 97.7 F L 95.2 F L 96.8 F L Temperature Source Temporal Temporal Temporal Pulse Rate (60-100) 69 86 67 Pulse Location Monitor Monitor Monitor Respiratory Rate (12-18) 18 18 18 Respiratory rate source Observation Observation Observation Oxygen Delivery Method Room Air Room Air Room Air Blood Pressure (90/60-120/80) 134/70 H 163/77 H 141/73 H Blood Pressure Mean (mm Hg) 91 105 95 Source Monitor Monitor Monitor Position Sitting Semi-Fowlers Sitting Blood Pressure Location Left Arm Left Arm Right Arm History Since Last Visit- (Skip if this is Patient's initial visit) Have you changed medications since your No No No last visit? Any new allergies or adverse reactions No No No Had a fall/change in ADL's that may No No No increase risk of falls Signs or symptoms of abuse and/or No No No neglect since last visit Have you been in the hospital since your No No No last visit? Has dressing in place as prescribed Yes Yes Yes Has compression in place as prescribed Yes Yes Yes Has offloadiing in place as prescribed N/A N/A N/A Experienced any changes in pain level or No No No management Left Footwear Regular Shoe Slipper Regular Shoe Right Footwear Regular Shoe Slipper Regular Shoe Pain Scale: 0-10 Numeric Is Patient Pain Free? Yes Yes Yes WC - Nurse 1 - General Ulcer Measurement Start: 03/24/24 11:09 Freq: Status: Active Protocol: Activity Type Activity Date Activity User E-sign Co-sign Detail Recorded Client Recorded Date Recorded By Document 03/24/24 11:09 KW [id number] 03/24/24 11:18 KW Document 03/31/24 10:44 KW [id number] 03/31/24 10:47 KW Document 04/07/24 11:08 DS [id number] 04/07/24 11:18 DS 03/24/24 03/31/24 04/07/24 11:09 10:44 11:08 Wound Center Nurse 1 8. LLE lateral -Current Size (cm) - Length 0.1 0.1 -Current Size (cm) - Width 0.1 0.1 -Current Size (cm) - Depth 0.1 0.1 -Total Square Cm 0.01 0.01 -Exudate Amt Medium -Exudate Type Serosanguineous -Wound Margin Indistinct, Non -Visible -Granulation Amt Large (67-100%) -Granulation Quality Red -Texture (Adrianna-wound Skin Appearance) Localized Edema Assessed,Callus ,Localized Edema -Moisture (Adrianna-wound Skin Appearance) Maceration Assessed -Color (Adrianna-wound Skin Appearance) Erythema Assessed -Temperature (Adrianna-wound Skin No Abnormality No Abnormality Appearance) (Pt Warm) (Pt Warm) -Tenderness on Palpation (Adrianna-wound No No Skin Appearance) -Ulcer Cleansing Rinsed/ Soap and Water Irrigated with Saline -Foul Odor after Cleansing No Right Calf (cm) 56 59 Right Ankle (cm) 30.5 29.5 Left Calf (cm) 53 56.2 Left Ankle (cm) 30.5 32.5 WC - Nurse 2 - General Ulcer CM Notes Start: 03/24/24 11:09 Freq: Status: Active Protocol: Activity Type Activity Date Activity User E-sign Co-sign Detail Recorded Client Recorded Date Recorded By Document 03/24/24 11:30 [id number] 03/24/24 11:37 Document 03/31/24 11:43 [id number] 03/31/24 11:48 Document 04/07/24 11:29 [id number] 04/07/24 11:36 03/24/24 03/31/24 04/07/24 11:30 11:43 11:29 Wound Center Nurse 2 8. LLE lateral -Time 11:37 11:47 11:29 -Correct Patient Yes Yes Yes -Correct Side, Site, Position Yes Yes Yes -Correct Procedure Yes -Procedure Performed Yes -Type of Procedure Debridement -Clinical Debridement Epidermis / Dermis -Tissue Removed Epidermis -Tunneling No -Undermining/Tunneling No -Circular Undermining No -Wound/Ulcer Outcome Not Healed Not Healed Not Healed -Ulcer Cleansing Rinsed/ Irrigated with Saline -Foul Odor after Cleansing No -Bioengineered Tissue No -Bleeding Controlled with NA -Treatment Response Procedure Tolerated Well -Debridement - Open, 1st 20sq cm Yes -Wound Comment(s) not debrided Not debrided 4.0 measures 2.0x2. 3.0 0x0.1 0.1 Pain Scale: 0-10 Numeric Is Patient Pain Free? Yes Yes Yes - Nurse 3 - General Ulcer D/C NN Start: 03/24/24 11:09 Freq: Status: Active Protocol: Activity Type Activity Date Activity User E-sign Co-sign Detail Recorded Client Recorded Date Recorded By Document 03/24/24 11:55 RB [id number] 03/24/24 11:56 RB Document 03/31/24 11:59 KW [id number] 03/31/24 12:01 KW Document 04/07/24 11:41 KW [id number] 04/07/24 11:42 KW 03/24/24 03/31/24 04/07/24 11:55 11:59 11:41 Wound Care Center Nurse 3 8. LLE lateral -Ulcer Cleansing Rinsed/ Irrigated with Saline -Primary Dressing Applied Aquacel Extra, Aquacel AG 4x4, Aquacel Extra, Mepilex Border Mepilex Border Mepilex Border -Aquacel Extra 1 1 -Aquacel AG 4x4 1 -Mepilex Border 1 1 1 Right -Tubular Bandage Double Layer Double Layer -Size of Tubigrip Used Size F Size F -Size F ($) 2 2 Left -Tubular Bandage Double Layer Double Layer -Size of Tubigrip Used Size F Size F -Size F ($) 2 2 BILAT LE -Tubular Bandage Double Layer -Size of Tubigrip Used Size F -Size F ($) 4 Treatment Response Procedure Tolerated Well Pain Scale: 0-10 Numeric Is Patient Pain Free? Yes Yes Yes - Visit Discharge Discharge Condition Stable Ambulatory Status Ambulatory, Walker Transportation Private Auto Medication Reconcilliation completed & No provided to patient/care provider Clinical Summary of Care Provided Yes Assessment/Plan Assessment/Plan (1) Non-pressure chronic ulcer left lower leg, limited to breakdown skin: CODE(S): L97.921 - Non-pressure chronic ulcer of unspecified part of left lower leg limited to breakdown of skin (2) Venous insufficiency: CODE(S): I87.2 - Venous insufficiency (chronic) (peripheral) (3) Edema of both lower extremities: CODE(S): R60.0 - Localized edema (4) Lymphedema: CODE(S): I89.0 - Lymphedema, not elsewhere classified (5) Essential hypertension: CODE(S): I10 - Essential (primary) hypertension (6) Morbid obesity with BMI of 45.0-49.9, adult: CODE(S): E66.01 - Morbid (severe) obesity due to excess calories; Z68.42 - Body mass index [BMI] 45.0-49.9, adult (7) Venous stasis 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: CODE(S): I83.023 - Varicose veins of left lower extremity with ulcer of ankle; L97.321 - Non-pressure 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 QUALIFIERS: Varicose vein presence: with varicose veins Qualified Code(s): I83.023 - Varicose veins of left lower extremity with ulcer of ankle; L97.321 - Non-pressure 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 (8) Debility: CODE(S): R53.81 - Other malaise (9) Osteoarthritis: CODE(S): M19.90 - Unspecified osteoarthritis, unspecified site QUALIFIERS: Osteoarthritis location: multiple joints Osteoarthritis type: primary Qualified Code(s): M15.9 - Polyosteoarthritis, unspecified (10) COPD (chronic obstructive pulmonary disease): CODE(S): J44.9 - Chronic obstructive pulmonary disease, unspecified QUALIFIERS: COPD type: unspecified COPD Qualified Code(s): J44.9 - Chronic obstructive pulmonary disease, unspecified (11) Chronic hypoxemic respiratory failure: CODE(S): J96.11 - Chronic respiratory failure with hypoxia (12) Pulmonary hypertension: CODE(S): I27.20 - Pulmonary hypertension, unspecified (13) Hypothyroidism: CODE(S): E03.9 - Hypothyroidism, unspecified QUALIFIERS: Hypothyroidism type: unspecified Qualified Code(s): E03.9 - Hypothyroidism, unspecified (14) Type 2 diabetes mellitus: CODE(S): E11.9 - Type 2 diabetes mellitus without complications QUALIFIERS: Diabetes mellitus longterm insulin use: without adding machine servicer use Diabetes mellitus complication status: with other specified complication Qualified Code(s): E11.69 - Type 2 diabetes mellitus with other specified complication (15) DOLORES (obstructive sleep apnea): CODE(S): G47.33 - Obstructive sleep apnea (adult) (pediatric) PLAN: Plan Evaluation and debridement performed today in clinic as annotated above. Chart reviewed for previous testing and history. At home wound-care instructions: Edema will be treated with tubigrips in a double layer and have her continue to use lymphedema pumps. Will have her use Aquacel and cover with a foam dressing to the left lateral LE changed daily for moderate to heavy drainage. She was instructed to keep dressings clean and dry. Will have her use lymphedema pumps for 60 minutes 2-3 times daily. Off-loading: The patient was instructed to avoid pressure and friction on the affected areas. Reposition every 2 hours at minimum. Avoid prolonged standing and/or dangling of legs. When seated, feet should be elevated at chest level. Frequent ambulation is encouraged. Diet: Patient encouraged to increase protein intake while taking caution to avoid high carbohydrate and/or sugar intake. Encouraged weight loss. Labs/cultures/imaging: Wound culture taken today and started her on Ciprofloxacin based on previous culture results. Encouraged her to get her CPAP mask to improve DOLORES and pulmonary HTN treatment compliance which is adding to her decompensated lymphedema. Follow-up: Will have her follow up in 1 week. Return sooner or report to the emergency room should symptoms worsen, or new symptoms arise. Note: [employer] speech recognition line service technician software was used to create portions of this document. Sound-alike and misspelled words, as well as other line service technician errors may be contained in the documentation.
[2024-04-14 11:32] VITALS: BP 155/60; PULSE 70; RESP 18; TEMP 35.9; BMI 49.8
--- NOTE | 2024-04-14 13:14 | PN.PCM_ITS ---
History of Present Illness Date of Service: 04/14/24 Chief Complaint: B/L LE ulcers, bilateral lower extremity swelling History of Wound: Liz is a pleasant 74 yo woman that presents to the wound center for bilateral lower extremity edema and blisters and drainage of her bilateral lower extremities. She has had increased edema the last 2 weeks and her legs started seeping a few days ago. She has been wearing her tubigrip compression and had been using the lymphedema pumps until they started seeping fluid. She tries to elevate her legs when she is sitting but is not always consistent with doing this. She has been wrapping her leg with gauze when it is seeping but otherwise has not been doing any regular dressings. Patient has been treated at the wound center in the past for similar wounds, most recently October 2023. She has also been seen in the vascular surgery clinic where she was evaluated her for BLE DVT and venous insufficiency. 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 GSV ablation has been done to her right lower leg. She has received lymphedema pumps that were ordered during her last treatment course and has been using these. Last venous study was 03/2022. Last A1C 01/2023 was 6.4%. Last TSH - 01/2022 Patient's medical history is also significant for CHF, COPD, T2DM, lymphedema. She has a CPAP but has not been using this due to needing a new mask. She states that a prescription was to be sent and she never received the mask. Her current mask has a hole in it. Subjective Subjective Liz returns today for treatment of edema to bilateral lower legs. She tolerated tubigrip compression and lymphedema pumps. The left lateral leg is improved but there is still some skin breakdown and mild drainage. She is on ciprofloxacin and Linezolid for positive wound cultures with multiple bacteria. She has been elevating her legs and using lymphedema pumps as directed. She denies fever, chills. Objective Data Objective Data Vital Signs: Vital Signs Temp Pulse Resp BP Pulse Ox O2 Del Method 96.7 F L 70 18 155/60 H 94 Room Air 04/14/24 11:32 04/14/24 11:32 04/14/24 11:32 04/14/24 11:32 03/21/24 00:28 04/07/24 11:08 Oxygen Delivery Method Room Air Weight: 140.16 kg Body Mass Index (BMI) 49.8 Lab / Micro Data Micro: Microbiology 03/31/24 11:50 Wound - Leg, Left Gram Stain - Final 03/31/24 11:50 Wound - Leg, Left Wound Culture - Final Pseudomonas aeruginosa Klebsiella pneumoniae sp pneum Enterococcus faecalis Staphylococcus simulans 03/31/24 11:50 Wound - Leg, Left Anaerobic Culture - Final Actinotignum schaalii Physical Exam Const alert, oriented x3 and no apparent distress General Appearance: cooperative and comfortable Nutritional Appearance: obese HEENT normocephalic and head/scalp atraumatic Lymph Lymphatic: lymphedema severe and pitting Resp normal respiratory effort Effort and Inspection: able to speak in complete sentences Cardio regular rate and regular rhythm Extremity General Extremity: edema bilateral lower extremity Details: severe (with skin changes associated with lymphedema, thickened nodular appearance from mid allen to ankle) Skin General Skin Exam: erythema, venous stasis and dermatitis Wounds: wounds noted Wound Narrative: as in clinical panel Psych mental status grossly normal, thought process normal, cooperative and affect normal Debridement Note Debridement Note Wound debrided: left lateral LE Laterality: Left No debridement was completed: No debridement was completed today (no slough or devitalized tissue) Post-Debridement Measurements and Additional Note: Post-Debridement Measurements/Treatment - Nurse 1 - General Ulcer Assessment Start: 03/24/24 11:09 Freq: Status: Active Protocol: EKLSEY Activity Type Activity Date Activity User E-sign Co-sign Detail Recorded Client Recorded Date Recorded By Document 03/24/24 11:09 KW [id number] 03/24/24 11:18 KW Document 03/31/24 10:44 KW [id number] 03/31/24 10:47 KW Document 04/07/24 11:08 DS [id number] 04/07/24 11:18 DS Document 04/14/24 11:32 RB [id number] 04/14/24 11:41 RB 03/24/24 03/31/24 04/07/24 11:09 10:44 11:08 - Today's Visit Information Type of service Follow-up Visit Follow-up Visit Follow-up Visit (Physician/EFFICIENCY MINER BLASTING (Physician/EFFICIENCY MINER BLASTING (Physician/EFFICIENCY MINER BLASTING ) ) ) Arrival Mode Ambulatory Ambulatory, Ambulatory, Walker Walker Transfer Assistance Accompanied by Patient Identification Verified (Name & Yes Yes Yes ) Patient Requires Transmission-Based No Precautions Safety Precautions Fall Prevention Height and Weight Body Mass Index (BMI) 49.8 49.8 49.8 BMI Classification Obese Obese Obese Vital Signs Temperature (97.8 F-99.1 F) 97.7 F L 95.2 F L 96.8 F L Temperature Source Temporal Temporal Temporal Pulse Rate (60-100) 69 86 67 Pulse Location Monitor Monitor Monitor Respiratory Rate (12-18) 18 18 18 Respiratory rate source Observation Observation Observation Oxygen Delivery Method Room Air Room Air Room Air Blood Pressure (90/60-120/80) 134/70 H 163/77 H 141/73 H Blood Pressure Mean (mm Hg) 91 105 95 Source Monitor Monitor Monitor Position Sitting Semi-Fowlers Sitting Blood Pressure Location Left Arm Left Arm Right Arm History Since Last Visit- (Skip if this is Patient's initial visit) Have you changed medications since your No No No last visit? Any new allergies or adverse reactions No No No Had a fall/change in ADL's that may No No No increase risk of falls Signs or symptoms of abuse and/or No No No neglect since last visit Have you been in the hospital since your No No No last visit? Has dressing in place as prescribed Yes Yes Yes Has compression in place as prescribed Yes Yes Yes Has offloadiing in place as prescribed N/A N/A N/A Experienced any changes in pain level or No No No management Left Footwear Regular Shoe Slipper Regular Shoe Right Footwear Regular Shoe Slipper Regular Shoe Pain Scale: 0-10 Numeric Is Patient Pain Free? Yes Yes Yes 04/14/24 11:32 WC - Today's Visit Information Type of service Follow-up Visit (Physician/EFFICIENCY MINER BLASTING ) Arrival Mode Ambulatory, Walker Transfer Assistance Manual Accompanied by Patient Identification Verified (Name & Yes ) Patient Requires Transmission-Based No Precautions Safety Precautions Height and Weight Body Mass Index (BMI) 49.8 BMI Classification Obese Vital Signs Temperature (97.8 F-99.1 F) 96.7 F L Temperature Source Temporal Pulse Rate (60-100) 70 Pulse Location Monitor Respiratory Rate (12-18) 18 Respiratory rate source Observation Oxygen Delivery Method Blood Pressure (90/60-120/80) 155/60 H Blood Pressure Mean (mm Hg) 91 Source Monitor Position Sitting Blood Pressure Location Left Arm History Since Last Visit- (Skip if this is Patient's initial visit) Have you changed medications since your No last visit? Any new allergies or adverse reactions No Had a fall/change in ADL's that may No increase risk of falls Signs or symptoms of abuse and/or No neglect since last visit Have you been in the hospital since your No last visit? Has dressing in place as prescribed Yes Has compression in place as prescribed Yes Has offloadiing in place as prescribed No Experienced any changes in pain level or No management Left Footwear Right Footwear Pain Scale: 0-10 Numeric Is Patient Pain Free? Yes WC - Nurse 1 - General Ulcer Measurement Start: 03/24/24 11:09 Freq: Status: Active Protocol: Activity Type Activity Date Activity User E-sign Co-sign Detail Recorded Client Recorded Date Recorded By Document 03/24/24 11:09 KW [id number] 03/24/24 11:18 KW Document 03/31/24 10:44 KW [id number] 03/31/24 10:47 KW Document 04/07/24 11:08 DS [id number] 04/07/24 11:18 DS Document 04/14/24 11:32 RB [id number] 04/14/24 11:41 RB 03/24/24 03/31/24 04/07/24 11:09 10:44 11:08 Wound Center Nurse 1 8. LLE lateral -Combined with other wound -Current Size (cm) - Length 0.1 0.1 -Current Size (cm) - Width 0.1 0.1 -Current Size (cm) - Depth 0.1 0.1 -Total Square Cm 0.01 0.01 -Tunneling -Undermining/Tunneling -Circular Undermining -Exudate Amt Medium -Exudate Type Serosanguineous -Wound Margin Indistinct, Non -Visible -Granulation Amt Large (67-100%) -Granulation Quality Red -Slough/Fibrin -Necrosis Amt -Necrotic Tissue Type -Structure Exposed -Texture (Adrianna-wound Skin Appearance) Localized Edema Assessed,Callus ,Localized Edema -Moisture (Adrianna-wound Skin Appearance) Maceration Assessed -Color (Adrianna-wound Skin Appearance) Erythema Assessed -Temperature (Adrianna-wound Skin No Abnormality No Abnormality Appearance) (Pt Warm) (Pt Warm) -Tenderness on Palpation (Adrianna-wound No No Skin Appearance) -Ulcer Cleansing Rinsed/ Soap and Water Irrigated with Saline -Foul Odor after Cleansing No -Anesthetic Used Lower Limb Edema Present Right Calf (cm) 56 59 Right Ankle (cm) 30.5 29.5 Left Calf (cm) 53 56.2 Left Ankle (cm) 30.5 32.5 04/14/24 11:32 Wound Center Nurse 1 8. LLE lateral -Combined with other wound No -Current Size (cm) - Length 0.1 -Current Size (cm) - Width 0.1 -Current Size (cm) - Depth 0.1 -Total Square Cm 0.01 -Tunneling No -Undermining/Tunneling No -Circular Undermining No -Exudate Amt Medium -Exudate Type Serosanguineous -Wound Margin Indistinct, Non -Visible -Granulation Amt Large (67-100%) -Granulation Quality [place] -Slough/Fibrin Yes -Necrosis Amt Medium (34-66%) -Necrotic Tissue Type Adherent Slough -Structure Exposed N/A -Texture (Adrianna-wound Skin Appearance) Assessed -Moisture (Adrianna-wound Skin Appearance) Assessed, Weeping -Color (Adrianna-wound Skin Appearance) Assessed -Temperature (Adrianna-wound Skin No Abnormality Appearance) (Pt Warm) -Tenderness on Palpation (Adrianna-wound No Skin Appearance) -Ulcer Cleansing Wound Cleanser -Foul Odor after Cleansing No -Anesthetic Used 5% Lidocaine Gel Lower Limb Edema Present Yes Right Calf (cm) 52.7 Right Ankle (cm) 29.2 Left Calf (cm) 51 Left Ankle (cm) 29.5 WC - Nurse 2 - General Ulcer CM Notes Start: 03/24/24 11:09 Freq: Status: Active Protocol: Activity Type Activity Date Activity User E-sign Co-sign Detail Recorded Client Recorded Date Recorded By Document 03/24/24 11:30 [id number] 03/24/24 11:37 Document 03/31/24 11:43 [id number] 03/31/24 11:48 Document 04/07/24 11:29 [id number] 04/07/24 11:36 Document 04/14/24 11:45 [id number] 04/14/24 11:47 03/24/24 03/31/24 04/07/24 11:30 11:43 11:29 Wound Center Nurse 2 8. LLE lateral -Time 11:37 11:47 11:29 -Correct Patient Yes Yes Yes -Correct Side, Site, Position Yes Yes Yes -Correct Procedure Yes -Procedure Performed Yes -Type of Procedure Debridement -Clinical Debridement Epidermis / Dermis -Tissue Removed Epidermis -Tunneling No -Undermining/Tunneling No -Circular Undermining No -Wound/Ulcer Outcome Not Healed Not Healed Not Healed -Ulcer Cleansing Rinsed/ Irrigated with Saline -Foul Odor after Cleansing No -Bioengineered Tissue No -Bleeding Controlled with NA -Treatment Response Procedure Tolerated Well -Debridement - Open, 1st 20sq cm Yes -Wound Comment(s) not debrided Not debrided 4.0 measures 2.0x2. 3.0 0x0.1 0.1 Pain Scale: 0-10 Numeric Is Patient Pain Free? Yes Yes Yes 04/14/24 11:45 Wound Center Nurse 2 8. LLE lateral -Time 11:46 -Correct Patient Yes -Correct Side, Site, Position Yes -Correct Procedure -Procedure Performed -Type of Procedure -Clinical Debridement -Tissue Removed -Tunneling -Undermining/Tunneling -Circular Undermining -Wound/Ulcer Outcome Healed- Epithelialized -Ulcer Cleansing -Foul Odor after Cleansing -Bioengineered Tissue -Bleeding Controlled with -Treatment Response -Debridement - Open, 1st 20sq cm -Wound Comment(s) Pain Scale: 0-10 Numeric Is Patient Pain Free? Yes - Nurse 3 - General Ulcer D/C NN Start: 03/24/24 11:09 Freq: Status: Active Protocol: Activity Type Activity Date Activity User E-sign Co-sign Detail Recorded Client Recorded Date Recorded By Document 03/24/24 11:55 RB [id number] 03/24/24 11:56 RB Document 03/31/24 11:59 KW [id number] 03/31/24 12:01 KW Document 04/07/24 11:41 KW [id number] 04/07/24 11:42 KW Document 04/14/24 11:52 KW [id number] 04/14/24 11:53 KW 03/24/24 03/31/24 04/07/24 11:55 11:59 11:41 Wound Care Center Nurse 3 8. LLE lateral -Ulcer Cleansing Rinsed/ Irrigated with Saline -Primary Dressing Applied Aquacel Extra, Aquacel AG 4x4, Aquacel Extra, Mepilex Border Mepilex Border Mepilex Border -Aquacel Extra 1 1 -Aquacel AG 4x4 1 -Mepilex Border 1 1 1 Right -Tubular Bandage Double Layer Double Layer -Size of Tubigrip Used Size F Size F -Size F ($) 2 2 Left -Tubular Bandage Double Layer Double Layer -Size of Tubigrip Used Size F Size F -Size F ($) 2 2 BILAT LE -Tubular Bandage Double Layer -Size of Tubigrip Used Size F -Size F ($) 4 Treatment Response Procedure Tolerated Well Pain Scale: 0-10 Numeric Is Patient Pain Free? Yes Yes Yes WC - Visit Discharge Discharge Condition Stable Ambulatory Status Ambulatory, Walker Transportation Private Auto Medication Reconcilliation completed & No provided to patient/care provider Clinical Summary of Care Provided Yes 04/14/24 11:52 Wound Care Center Nurse 3 8. LLE lateral -Ulcer Cleansing -Primary Dressing Applied Aquacel Extra, Mepilex Border -Aquacel Extra 1 -Aquacel AG 4x4 -Mepilex Border 2 Right -Tubular Bandage Double Layer -Size of Tubigrip Used Size F -Size F ($) 2 Left -Tubular Bandage Double Layer -Size of Tubigrip Used Size F -Size F ($) 2 BILAT LE -Tubular Bandage -Size of Tubigrip Used -Size F ($) Treatment Response Pain Scale: 0-10 Numeric Is Patient Pain Free? Yes WC - Visit Discharge Discharge Condition Ambulatory Status Transportation Medication Reconcilliation completed & provided to patient/care provider Clinical Summary of Care Provided Assessment/Plan Assessment/Plan (1) Non-pressure chronic ulcer left lower leg, limited to breakdown skin: CODE(S): L97.921 - Non-pressure chronic ulcer of unspecified part of left lower leg limited to breakdown of skin (2) Venous insufficiency: CODE(S): I87.2 - Venous insufficiency (chronic) (peripheral) (3) Edema of both lower extremities: CODE(S): R60.0 - Localized edema (4) Lymphedema: CODE(S): I89.0 - Lymphedema, not elsewhere classified (5) Essential hypertension: CODE(S): I10 - Essential (primary) hypertension (6) Morbid obesity with BMI of 45.0-49.9, adult: CODE(S): E66.01 - Morbid (severe) obesity due to excess calories; Z68.42 - Body mass index [BMI] 45.0-49.9, adult (7) Venous stasis 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: CODE(S): I83.023 - Varicose veins of left lower extremity with ulcer of ankle; L97.321 - Non-pressure 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 QUALIFIERS: Varicose vein presence: with varicose veins Qualified Code(s): I83.023 - Varicose veins of left lower extremity with ulcer of ankle; L97.321 - Non-pressure 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 (8) Debility: CODE(S): R53.81 - Other malaise (9) Osteoarthritis: CODE(S): M19.90 - Unspecified osteoarthritis, unspecified site QUALIFIERS: Osteoarthritis location: multiple joints Osteoarthritis type: primary Qualified Code(s): M15.9 - Polyosteoarthritis, unspecified (10) COPD (chronic obstructive pulmonary disease): CODE(S): J44.9 - Chronic obstructive pulmonary disease, unspecified QUALIFIERS: COPD type: unspecified COPD Qualified Code(s): J44.9 - Chronic obstructive pulmonary disease, unspecified (11) Chronic hypoxemic respiratory failure: CODE(S): J96.11 - Chronic respiratory failure with hypoxia (12) Pulmonary hypertension: CODE(S): I27.20 - Pulmonary hypertension, unspecified (13) Hypothyroidism: CODE(S): E03.9 - Hypothyroidism, unspecified QUALIFIERS: Hypothyroidism type: unspecified Qualified Code(s): E03.9 - Hypothyroidism, unspecified (14) Type 2 diabetes mellitus: CODE(S): E11.9 - Type 2 diabetes mellitus without complications QUALIFIERS: Diabetes mellitus local intermodal truck driver insulin use: without local intermodal truck driver use Diabetes mellitus complication status: with other specified complication Qualified Code(s): E11.69 - Type 2 diabetes mellitus with other specified complication (15) DOLORES (obstructive sleep apnea): CODE(S): G47.33 - Obstructive sleep apnea (adult) (pediatric) PLAN: Plan Evaluation and debridement performed today in clinic as annotated above. Chart reviewed for previous testing and history. At home wound-care instructions: Edema will be treated with tubigrips in a double layer and have her continue to use lymphedema pumps. Will have her use Aquacel and cover with a foam dressing to the left lateral LE changed daily for light to mild drainage. She was instructed to keep dressings clean and dry. Will have her use lymphedema pumps for 60 minutes 2-3 times daily. Off-loading: The patient was instructed to avoid pressure and friction on the affected areas. Reposition every 2 hours at minimum. Avoid prolonged standing and/or dangling of legs. When seated, feet should be elevated at chest level. Frequent ambulation is encouraged. Diet: Patient encouraged to increase protein intake while taking caution to avoid high carbohydrate and/or sugar intake. Encouraged weight loss. Labs/cultures/imaging: Wound culture from 03/1124 positive for multiple bacteria. She will complete antibiotic treatment this week. Encouraged her to get her CPAP mask to improve DOLORES and pulmonary HTN treatment compliance which is adding to her decompensated lymphedema. Follow-up: Will have her follow up in 1 week. Return sooner or report to the emergency room should symptoms worsen, or new symptoms arise. Note: [employer] speech recognition lead generator software was used to create portions of this document. Sound-alike and misspelled words, as well as other lead generator errors may be contained in the documentation.
== END 2024-04-20 23:59 | disposition home or self-care (01) ==
LOC: WC 11:30
PROVIDERS: PCP Internal Medicine; Referring Provider Internal Medicine; Visit Provider Family Medicine
DX: I83.023 Varicose veins of left lower extremity with ulcer of ankle (principal); L97.822 Non-pressure chronic ulcer of other part of left lower leg with fat layer exposed; L97.919 Non-pressure chronic ulcer of unspecified part of right lower leg with unspecified severity; J96.11 Chronic respiratory failure with hypoxia; I50.9 Heart failure, unspecified; I27.20 Pulmonary hypertension, unspecified; J44.9 Chronic obstructive pulmonary disease, unspecified; E66.01 Morbid (severe) obesity due to excess calories; Z68.42 Body mass index [BMI] 45.0-49.9, adult; E11.9 Type 2 diabetes mellitus without complications; E03.9 Hypothyroidism, unspecified; G47.33 Obstructive sleep apnea (adult) (pediatric); M19.90 Unspecified osteoarthritis, unspecified site; I87.2 Venous insufficiency (chronic) (peripheral); I89.0 Lymphedema, not elsewhere classified; R60.0 Localized edema; Z79.890 Hormone replacement therapy; Z79.899 Other long term (current) drug therapy; Z86.718 Personal history of other venous thrombosis and embolism
CPT/HCPCS: 87070; 87075; 87077; 87186; 87205; 97597; 99213; G0463

== ENCOUNTER 2024-05-12 10:45 | Outpatient (RCR) | payer MEDICARE, MEDICAID, SELFPAY ==
[2024-04-21 00:40] VITALS: BP 160/93; PULSE 83; RESP 18; TEMP 36.4; O2SAT 94; BMI 49.8
[2024-04-21 11:00] VITALS: BP 168/64; PULSE 76; RESP 18; TEMP 36.2; BMI 49.8
--- NOTE | 2024-04-21 14:07 | PN.PCM_ITS ---
History of Present Illness Date of Service: 04/21/24 Chief Complaint: B/L LE ulcers, bilateral lower extremity swelling History of Wound: Liz is a pleasant 74 yo woman that presents to the wound center for bilateral lower extremity edema and blisters and drainage of her bilateral lower extremities. She has had increased edema the last 2 weeks and her legs started seeping a few days ago. She has been wearing her tubigrip compression and had been using the lymphedema pumps until they started seeping fluid. She tries to elevate her legs when she is sitting but is not always consistent with doing this. She has been wrapping her leg with gauze when it is seeping but otherwise has not been doing any regular dressings. Patient has been treated at the wound center in the past for similar wounds, most recently October 2023. She has also been seen in the vascular surgery clinic where she was evaluated her for BLE DVT and venous insufficiency. 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 GSV ablation has been done to her right lower leg. She has received lymphedema pumps that were ordered during her last treatment course and has been using these. Last venous study was 03/2022. Last A1C 01/2023 was 6.4%. Last TSH - 01/2022 Patient's medical history is also significant for CHF, COPD, T2DM, lymphedema. She has a CPAP but has not been using this due to needing a new mask. She states that a prescription was to be sent and she never received the mask. Her current mask has a hole in it. Subjective Subjective Liz returns today for treatment of edema to bilateral lower legs. She tolerated tubigrip compression and lymphedema pumps. The left lateral leg is improved but there is still some skin breakdown and mild drainage. She completed ciprofloxacin and Linezolid for positive wound cultures with multiple bacteria. She has been elevating her legs and using lymphedema pumps as directed. She denies fever, chills. Objective Data Objective Data Vital Signs: Vital Signs Temp Pulse Resp BP Pulse Ox O2 Del Method 97.1 F L 76 18 168/64 H 94 Room Air 04/21/24 11:00 04/21/24 11:00 04/21/24 11:00 04/21/24 11:00 04/21/24 00:40 04/21/24 11:00 Oxygen Delivery Method Room Air Weight: 140.16 kg Body Mass Index (BMI) 49.8 Physical Exam Const alert, oriented x3 and no apparent distress General Appearance: cooperative and comfortable Nutritional Appearance: obese HEENT normocephalic and head/scalp atraumatic Lymph Lymphatic: lymphedema severe and pitting Resp normal respiratory effort Effort and Inspection: able to speak in complete sentences Cardio regular rate and regular rhythm Extremity General Extremity: edema bilateral lower extremity Details: severe (with skin changes associated with lymphedema, thickened nodular appearance from mid allen to ankle) Skin General Skin Exam: erythema, venous stasis and dermatitis Wounds: wounds noted Wound Narrative: as in clinical panel Psych mental status grossly normal, thought process normal, cooperative and affect normal Debridement Note Debridement Note Wound debrided: Left lateral LE Laterality: Left No debridement was completed: No debridement was completed today (no slough present) Post-Debridement Measurements and Additional Note: Post-Debridement Measurements/Treatment [id number] - Nurse 1 - General Ulcer Assessment Start: 04/21/24 11:00 Freq: Status: Active Protocol: KELSEY Activity Type Activity Date Activity User E-sign Co-sign Detail Recorded Client Recorded Date Recorded By Document 04/21/24 11:00 GENEVA [id number] 04/21/24 11:11 KW 04/21/24 11:00 WC - Today's Visit Information Type of service Follow-up Visit (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/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 ) Arrival Mode Ambulatory, Walker Accompanied by Patient Identification Verified (Name & Yes ) Height and Weight Body Mass Index (BMI) 49.8 BMI Classification Obese Vital Signs Temperature (97.8 F-99.1 F) 97.1 F L Temperature Source Temporal Pulse Rate (60-100) 76 Pulse Location Monitor Respiratory Rate (12-18) 18 Respiratory rate source Observation Oxygen Delivery Method Room Air Blood Pressure (90/60-120/80) 168/64 H Blood Pressure Mean (mm Hg) 98 Source Monitor Position Semi-Fowlers Blood Pressure Location Left Arm History Since Last Visit- (Skip if this is Patient's initial visit) Have you changed medications since your No last visit? Any new allergies or adverse reactions No Had a fall/change in ADL's that may No increase risk of falls Signs or symptoms of abuse and/or No neglect since last visit Have you been in the hospital since your No last visit? Has dressing in place as prescribed Yes Has compression in place as prescribed Yes Has offloadiing in place as prescribed N/A Experienced any changes in pain level or No management Left Footwear Regular Shoe Right Footwear Regular Shoe Pain Scale: 0-10 Numeric Is Patient Pain Free? Yes - Nurse 1 - General Ulcer Measurement Start: 04/21/24 11:00 Freq: Status: Active Protocol: Activity Type Activity Date Activity User E-sign Co-sign Detail Recorded Client Recorded Date Recorded By Document 04/21/24 11:00 [id number] 04/21/24 11:11 04/21/24 11:00 Wound Center Nurse 1 8. LLE lateral -Current Size (cm) - Length 0.1 -Current Size (cm) - Width 0.1 -Current Size (cm) - Depth 0.1 -Total Square Cm 0.01 -Exudate Amt Small -Exudate Type Serosanguineous -Wound Margin Indistinct, Non -Visible -Texture (Adrianna-wound Skin Appearance) Assessed -Moisture (Adrianna-wound Skin Appearance) Assessed, Maceration -Color (Adrianna-wound Skin Appearance) Assessed -Temperature (Adrianna-wound Skin No Abnormality Appearance) (Pt Warm) -Tenderness on Palpation (Adrianna-wound No Skin Appearance) -Ulcer Cleansing Rinsed/ Irrigated with Saline -Foul Odor after Cleansing No -Anesthetic Used 5% Lidocaine Gel Right Calf (cm) 53 Right Ankle (cm) 29.5 Left Calf (cm) 51.5 Left Ankle (cm) 29 WC - Nurse 2 - General Ulcer CM Notes Start: 04/21/24 11:00 Freq: Status: Active Protocol: Activity Type Activity Date Activity User E-sign Co-sign Detail Recorded Client Recorded Date Recorded By Document 04/21/24 11:16 [id number] 04/21/24 11:24 04/21/24 11:16 Wound Center Nurse 2 8. LLE lateral -Time 11:16 -Correct Patient Yes -Correct Side, Site, Position Yes -Wound/Ulcer Outcome Healed- Epithelialized #9 Left Lateral Allen -Time 11:23 -Correct Patient Yes -Correct Side, Site, Position Yes -Correct Procedure Yes -Procedure Performed Yes -Type of Procedure Debridement -Clinical Debridement Subcutaneous -Tissue Removed Subcutaneous -Post Debridement (cm) - Length 1.8 -Post Debridement (cm) - Width 0.9 -Post Debridement (cm) - Depth 0.1 -Total Square (Post) (cm) 1.62 -Area of Debridement (cm) - Length 1.8 -Area of Debridement (cm) - Width 0.9 -Total Square (Area) (cm) 1.62 -Tunneling No -Undermining/Tunneling No -Circular Undermining No -Wound/Ulcer Outcome Not Healed -Ulcer Cleansing Rinsed/ Irrigated with Saline -Foul Odor after Cleansing No -Bioengineered Tissue No -Bleeding Controlled with Pressure -Treatment Response Procedure Tolerated Well -Debridement - Subq, 1st 20sq cm Yes Pain Scale: 0-10 Numeric Is Patient Pain Free? Yes WC - Nurse 3 - General Ulcer D/C NN Start: 04/21/24 11:00 Freq: Status: Active Protocol: Activity Type Activity Date Activity User E-sign Co-sign Detail Recorded Client Recorded Date Recorded By Document 04/21/24 11:38 RB [id number] 04/21/24 11:39 RB 04/21/24 11:38 Wound Care Center Nurse 3 #9 Left Lateral Allen -Ulcer Cleansing Rinsed/ Irrigated with Saline -Primary Dressing Applied Mepilex Border, Promogran -Mepilex Border 1 -Promogran 1 Right -Tubular Bandage Double Layer -Size of Tubigrip Used Size F -Size F ($) 2 Left -Tubular Bandage Double Layer -Size of Tubigrip Used Size F -Size F ($) 2 Treatment Response Procedure Tolerated Well Pain Scale: 0-10 Numeric Is Patient Pain Free? Yes Teaching: Wound Center Control Swelling with Leg Elevation -Person Taught Patient -Teaching Method Discussion, Demonstration -Response to teaching Verbalize Understanding, Reinforcement Needed WC - Visit Discharge Discharge Condition Stable Ambulatory Status Ambulatory, Walker Transportation Private Auto Medication Reconcilliation completed & No provided to patient/care provider Clinical Summary of Care Provided Yes Additional Wound Wound debrided: left allen Laterality: Left Type of Debridement: Excisional debridement Anesthesia Used: 5% Lidocaine Gel Depth: Down to and including healthy tissue and in the subcutaneous layer Percentage of wound debrided: 100 Instrument Used: 3mm curette Tissue Removed: Yellow slough, devitalized tissue Severity: Fat Layer Exposed Amount of bleeding with debridement: Mild Bleeding Controlled with: Compression and gauze Patient tolerated procedure: Patient tolerated procedure well Assessment/Plan Assessment/Plan (1) Non-pressure chronic ulcer left lower leg, limited to breakdown skin: CODE(S): L97.921 - Non-pressure chronic ulcer of unspecified part of left lower leg limited to breakdown of skin (2) Venous insufficiency: CODE(S): I87.2 - Venous insufficiency (chronic) (peripheral) (3) Edema of both lower extremities: CODE(S): R60.0 - Localized edema (4) Lymphedema: CODE(S): I89.0 - Lymphedema, not elsewhere classified (5) Essential hypertension: CODE(S): I10 - Essential (primary) hypertension (6) Morbid obesity with BMI of 45.0-49.9, adult: CODE(S): E66.01 - Morbid (severe) obesity due to excess calories; Z68.42 - Body mass index [BMI] 45.0-49.9, adult (7) Venous stasis 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: CODE(S): I83.023 - Varicose veins of left lower extremity with ulcer of ankle; L97.321 - Non-pressure 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 QUALIFIERS: Varicose vein presence: with varicose veins Qualified Code(s): I83.023 - Varicose veins of left lower extremity with ulcer of ankle; L97.321 - Non-pressure 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 (8) Debility: CODE(S): R53.81 - Other malaise (9) Osteoarthritis: CODE(S): M19.90 - Unspecified osteoarthritis, unspecified site QUALIFIERS: Osteoarthritis location: multiple joints Osteoarthritis type: primary Qualified Code(s): M15.9 - Polyosteoarthritis, unspecified (10) COPD (chronic obstructive pulmonary disease): CODE(S): J44.9 - Chronic obstructive pulmonary disease, unspecified QUALIFIERS: COPD type: unspecified COPD Qualified Code(s): J44.9 - Chronic obstructive pulmonary disease, unspecified (11) Chronic hypoxemic respiratory failure: CODE(S): J96.11 - Chronic respiratory failure with hypoxia (12) Pulmonary hypertension: CODE(S): I27.20 - Pulmonary hypertension, unspecified (13) Hypothyroidism: CODE(S): E03.9 - Hypothyroidism, unspecified QUALIFIERS: Hypothyroidism type: unspecified Qualified Code(s): E03.9 - Hypothyroidism, unspecified (14) Type 2 diabetes mellitus: CODE(S): E11.9 - Type 2 diabetes mellitus without complications QUALIFIERS: Diabetes mellitus custodial insulin use: without custodial use Diabetes mellitus complication status: with other specified complication Qualified Code(s): E11.69 - Type 2 diabetes mellitus with other specified complication (15) DOLORES (obstructive sleep apnea): CODE(S): G47.33 - Obstructive sleep apnea (adult) (pediatric) PLAN: Plan Evaluation and debridement performed today in clinic as annotated above. Chart reviewed for previous testing and history. At home wound-care instructions: Edema will be treated with tubigrips in a double layer and have her continue to use lymphedema pumps. Will have her use Promogran and cover with a foam dressing to the left allen changed every other day for moderate drainage. She was instructed to keep dressings clean and dry. Will have her use lymphedema pumps for 60 minutes 2-3 times daily. Off-loading: The patient was instructed to avoid pressure and friction on the affected areas. Reposition every 2 hours at minimum. Avoid prolonged standing and/or dangling of legs. When seated, feet should be elevated at chest level. Frequent ambulation is encouraged. Diet: Patient encouraged to increase protein intake while taking caution to avoid high carbohydrate and/or sugar intake. Encouraged weight loss. Labs/cultures/imaging: Wound culture from 03/31/24 positive for multiple bacteria. She completed antibiotic. Encouraged her to get her CPAP mask to improve DOLORES and pulmonary HTN treatment compliance which is adding to her decompensated lymphedema. Follow-up: Will have her follow up next week with Molly Beck PA-C for re- evaluation regarding venous ablation of her left LE. Return sooner or report to the emergency room should symptoms worsen, or new symptoms arise. Note: [employer] speech recognition rejected items clerk software was used to create portions of this document. Sound-alike and misspelled words, as well as other rejected items clerk errors may be contained in the documentation.
[2024-04-27 13:39] VITALS: BP 151/63; PULSE 86; RESP 18; TEMP 36.2; BMI 49.8
--- NOTE | 2024-04-27 14:20 | PCM.WC.PN ---
History of Present Illness Date of Service: 04/27/24 Chief Complaint: B/L LE ulcers, bilateral lower extremity swelling History of Wound: Liz is a pleasant 74 yo woman that presents to the wound center for bilateral lower extremity edema and blisters and drainage of her bilateral lower extremities. She has had increased edema the last 2 weeks and her legs started seeping a few days ago. She has been wearing her tubigrip compression and had been using the lymphedema pumps until they started seeping fluid. She tries to elevate her legs when she is sitting but is not always consistent with doing this. She has been wrapping her leg with gauze when it is seeping but otherwise has not been doing any regular dressings. Patient has been treated at the wound center in the past for similar wounds, most recently October 2023. She has also been seen in the vascular surgery clinic where she was evaluated her for BLE DVT and venous insufficiency. 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 GSV ablation has been done to her right lower leg. She has received lymphedema pumps that were ordered during her last treatment course and has been using these. Last venous study was 03/2022. Last A1C 01/2023 was 6.4%. Last TSH - 01/2022 Patient's medical history is also significant for CHF, COPD, T2DM, lymphedema. She has a CPAP but has not been using this due to needing a new mask. She states that a prescription was to be sent and she never received the mask. Her current mask has a hole in it. Subjective Subjective I am seeing patient today in consultation regarding her venous insufficiency and lower extremity wounds. Patient has previously been evaluated in her vascular office and underwent right GSV ablation in January. Since this ablation, she reports she has not had any recurrence of her right lower extremity wounds. However, she has had recurrence of left lower extremity wounds. She remains with significant bilateral lower extremity edema and chronic skin changes consistent with CVI and lymphedema. She does have lymphedema pumps which she states she is using 1-2 times daily. She is presently in compression with Tubigrip's. Presently, has been applying Dyana and covering with Mepilex and changing every other day. She has noted that the dressing does seem soaked through and she will have some weeping draining down her leg from an area on her lateral left calf. Objective Data Objective Data Vital Signs: Vital Signs Temp Pulse Resp BP Pulse Ox O2 Del Method 97.1 F L 86 18 151/63 H 94 Room Air 04/27/24 13:39 04/27/24 13:39 04/27/24 13:39 04/27/24 13:39 04/21/24 00:40 04/27/24 13:39 Oxygen Delivery Method Room Air Weight: 309 lb Body Mass Index (BMI) 49.8 Charges/Coding Procedures Integumentary 111xxx-113xx: 95029 Arlene subq tissue 20 sq cm/< (Epidermal/dermal debridement) Physical Exam Const alert, oriented x3 and no apparent distress General Appearance: cooperative and comfortable Nutritional Appearance: obese HEENT normocephalic and head/scalp atraumatic Lymph Lymphatic: lymphedema severe and pitting Resp normal respiratory effort Effort and Inspection: able to speak in complete sentences Cardio regular rate and regular rhythm Extremity General Extremity: edema bilateral lower extremity Details: severe (with skin changes associated with lymphedema, thickened nodular appearance from mid allen to ankle) Skin General Skin Exam: erythema, venous stasis and dermatitis Wounds: wounds noted Wound Narrative: She has a small superficial ulceration to the anterolateral left allen with yellow slough at the base but after debridement well bleeding pink tissue. She also has an area of maceration on me lateral left calf with no apparent ulceration/wound but weeping. No surrounding erythema, focal edema, induration/fluctuance, foul odor. Psych mental status grossly normal, thought process normal, cooperative and affect normal Debridement Note Debridement Note Wound debrided: Left allen Laterality: Left Type of Debridement: Excisional debridement Anesthesia Used: 5% Lidocaine Gel Depth: Down to and including healthy tissue Percentage of wound debrided: 100 Instrument Used: 3mm curette Tissue Removed: Slough Severity: Limited To Skin Breakdown Bleeding Controlled with: Pressure Patient tolerated procedure: Patient tolerated procedure well Post-Debridement Measurements and Additional Note: Post-Debridement Measurements/Treatment WC - Nurse 1 - General Ulcer Assessment Start: 04/21/24 11:00 Freq: Status: Active Protocol: KELSEY Activity Type Activity Date Activity User E-sign Co-sign Detail Recorded Client Recorded Date Recorded By Document 04/21/24 11:00 KW [id number] 04/21/24 11:11 KW Document 04/27/24 13:39 KW [id number] 04/27/24 13:48 KW 04/21/24 04/27/24 11:00 13:39 - Today's Visit Information Type of service Follow-up Visit Follow-up Visit (Physician/[employer] (Physician/[employer] ) ) Arrival Mode Ambulatory, Ambulatory, Walker Walker Accompanied by Patient Identification Verified (Name & Yes Yes ) Height and Weight Body Mass Index (BMI) 49.8 49.8 BMI Classification Obese Obese Vital Signs Temperature (97.8 F-99.1 F) 97.1 F L 97.1 F L Temperature Source Temporal Temporal Pulse Rate (60-100) 76 86 Pulse Location Monitor Monitor Respiratory Rate (12-18) 18 18 Respiratory rate source Observation Observation Oxygen Delivery Method Room Air Room Air Blood Pressure (90/60-120/80) 168/64 H 151/63 H Blood Pressure Mean (mm Hg) 98 92 Source Monitor Monitor Position Semi-Fowlers Semi-Fowlers Blood Pressure Location Left Arm Left Arm History Since Last Visit- (Skip if this is Patient's initial visit) Have you changed medications since your No No last visit? Any new allergies or adverse reactions No No Had a fall/change in ADL's that may No No increase risk of falls Signs or symptoms of abuse and/or No No neglect since last visit Have you been in the hospital since your No No last visit? Has dressing in place as prescribed Yes Yes Has compression in place as prescribed Yes Yes Has offloadiing in place as prescribed N/A N/A Experienced any changes in pain level or No No management Left Footwear Regular Shoe Regular Shoe Right Footwear Regular Shoe Regular Shoe Pain Scale: 0-10 Numeric Is Patient Pain Free? Yes Yes - Nurse 1 - General Ulcer Measurement Start: 04/21/24 11:00 Freq: Status: Active Protocol: Activity Type Activity Date Activity User E-sign Co-sign Detail Recorded Client Recorded Date Recorded By Document 04/21/24 11:00 KW [id number] 04/21/24 11:11 KW Document 04/27/24 13:39 [id number] 04/27/24 13:48 KW 04/21/24 04/27/24 11:00 13:39 Wound Center Nurse 1 8. LLE lateral -Current Size (cm) - Length 0.1 -Current Size (cm) - Width 0.1 -Current Size (cm) - Depth 0.1 -Total Square Cm 0.01 -Exudate Amt Small -Exudate Type Serosanguineous -Wound Margin Indistinct, Non -Visible -Texture (Adrianna-wound Skin Appearance) Assessed -Moisture (Adrianna-wound Skin Appearance) Assessed, Maceration -Color (Adrianna-wound Skin Appearance) Assessed -Temperature (Adrianna-wound Skin No Abnormality Appearance) (Pt Warm) -Tenderness on Palpation (Adrianna-wound No Skin Appearance) -Ulcer Cleansing Rinsed/ Irrigated with Saline -Foul Odor after Cleansing No -Anesthetic Used 5% Lidocaine Gel #9 Left Lateral Allen -Current Size (cm) - Length 1.3 -Current Size (cm) - Width 0.8 -Current Size (cm) - Depth 0.1 -Total Square Cm 1.04 -Exudate Amt Small -Exudate Type Serosanguineous -Wound Margin Distinct, Outline Attached -Granulation Amt Small (1-33%) -Granulation Quality [place] -Necrosis Amt Large (67-100%) -Necrotic Tissue Type Adherent Slough -Texture (Adrianna-wound Skin Appearance) Assessed -Moisture (Adrianna-wound Skin Appearance) Assessed -Color (Adrianna-wound Skin Appearance) Assessed -Temperature (Adrianna-wound Skin No Abnormality Appearance) (Pt Warm) -Tenderness on Palpation (Adrianna-wound No Skin Appearance) -Foul Odor after Cleansing No -Anesthetic Used 5% Lidocaine Gel Right Calf (cm) 53 54 Right Ankle (cm) 29.5 29.5 Left Calf (cm) 51.5 54 Left Ankle (cm) 29 29 WC - Nurse 2 - General Ulcer CM Notes Start: 04/21/24 11:00 Freq: Status: Active Protocol: Activity Type Activity Date Activity User E-sign Co-sign Detail Recorded Client Recorded Date Recorded By Document 04/21/24 11:16 [id number] 04/21/24 11:24 Document 04/27/24 13:59 [id number] 04/27/24 14:00 04/21/24 04/27/24 11:16 13:59 Wound Center Nurse 2 8. LLE lateral -Time 11:16 -Correct Patient Yes -Correct Side, Site, Position Yes -Wound/Ulcer Outcome Healed- Epithelialized #9 Left Lateral Allen -Time 11:23 13:59 -Correct Patient Yes Yes -Correct Side, Site, Position Yes Yes -Correct Procedure Yes Yes -Procedure Performed Yes Yes -Type of Procedure Debridement Debridement -Clinical Debridement Subcutaneous Subcutaneous -Tissue Removed Subcutaneous Subcutaneous -Post Debridement (cm) - Length 1.8 1.1 -Post Debridement (cm) - Width 0.9 0.6 -Post Debridement (cm) - Depth 0.1 0.1 -Total Square (Post) (cm) 1.62 0.66 -Area of Debridement (cm) - Length 1.8 1.1 -Area of Debridement (cm) - Width 0.9 0.6 -Total Square (Area) (cm) 1.62 0.66 -Tunneling No No -Undermining/Tunneling No No -Circular Undermining No No -Wound/Ulcer Outcome Not Healed Not Healed -Ulcer Cleansing Rinsed/ Rinsed/ Irrigated with Irrigated with Saline Saline -Foul Odor after Cleansing No No -Bioengineered Tissue No No -Bleeding Controlled with Pressure Pressure -Treatment Response Procedure Procedure Tolerated Well Tolerated Well -Debridement - Subq, 1st 20sq cm Yes Yes Pain Scale: 0-10 Numeric Is Patient Pain Free? Yes Yes - Nurse 3 - General Ulcer D/C NN Start: 04/21/24 11:00 Freq: Status: Active Protocol: Activity Type Activity Date Activity User E-sign Co-sign Detail Recorded Client Recorded Date Recorded By Document 04/21/24 11:38 [id number] 04/21/24 11:39 ROBERT 04/21/24 11:38 Wound Care Center Nurse 3 #9 Left Lateral Allen -Ulcer Cleansing Rinsed/ Irrigated with Saline -Primary Dressing Applied Mepilex Border, Promogran -Mepilex Border 1 -Promogran 1 Right -Tubular Bandage Double Layer -Size of Tubigrip Used Size F -Size F ($) 2 Left -Tubular Bandage Double Layer -Size of Tubigrip Used Size F -Size F ($) 2 Treatment Response Procedure Tolerated Well Pain Scale: 0-10 Numeric Is Patient Pain Free? Yes Teaching: Wound Center Control Swelling with Leg Elevation -Person Taught Patient -Teaching Method Discussion, Demonstration -Response to teaching Verbalize Understanding, Reinforcement Needed WC - Visit Discharge Discharge Condition Stable Ambulatory Status Ambulatory, Walker Transportation Private Auto Medication Reconcilliation completed & No provided to patient/care provider Clinical Summary of Care Provided Yes Assessment/Plan Assessment/Plan (1) Non-pressure chronic ulcer left lower leg, limited to breakdown skin: CODE(S): L97.921 - Non-pressure chronic ulcer of unspecified part of left lower leg limited to breakdown of skin (2) Venous insufficiency: CODE(S): I87.2 - Venous insufficiency (chronic) (peripheral) (3) Edema of both lower extremities: CODE(S): R60.0 - Localized edema (4) Lymphedema: CODE(S): I89.0 - Lymphedema, not elsewhere classified (5) Essential hypertension: CODE(S): I10 - Essential (primary) hypertension (6) Morbid obesity with BMI of 45.0-49.9, adult: CODE(S): E66.01 - Morbid (severe) obesity due to excess calories; Z68.42 - Body mass index [BMI] 45.0-49.9, adult (7) Venous stasis 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: CODE(S): I83.023 - Varicose veins of left lower extremity with ulcer of ankle; L97.321 - Non-pressure 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 QUALIFIERS: Varicose vein presence: with varicose veins Qualified Code(s): I83.023 - Varicose veins of left lower extremity with ulcer of ankle; L97.321 - Non-pressure 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 (8) Debility: CODE(S): R53.81 - Other malaise (9) Osteoarthritis: CODE(S): M19.90 - Unspecified osteoarthritis, unspecified site QUALIFIERS: Osteoarthritis location: multiple joints Osteoarthritis type: primary Qualified Code(s): M15.9 - Polyosteoarthritis, unspecified (10) COPD (chronic obstructive pulmonary disease): CODE(S): J44.9 - Chronic obstructive pulmonary disease, unspecified QUALIFIERS: COPD type: unspecified COPD Qualified Code(s): J44.9 - Chronic obstructive pulmonary disease, unspecified (11) Chronic hypoxemic respiratory failure: CODE(S): J96.11 - Chronic respiratory failure with hypoxia (12) Pulmonary hypertension: CODE(S): I27.20 - Pulmonary hypertension, unspecified (13) Hypothyroidism: CODE(S): E03.9 - Hypothyroidism, unspecified QUALIFIERS: Hypothyroidism type: unspecified Qualified Code(s): E03.9 - Hypothyroidism, unspecified (14) Type 2 diabetes mellitus: CODE(S): E11.9 - Type 2 diabetes mellitus without complications QUALIFIERS: Diabetes mellitus fci insulin use: without longwall headgate operator use Diabetes mellitus complication status: with other specified complication Qualified Code(s): E11.69 - Type 2 diabetes mellitus with other specified complication (15) DOLORES (obstructive sleep apnea): CODE(S): G47.33 - Obstructive sleep apnea (adult) (pediatric) PLAN: Plan Evaluation and debridement performed today in clinic as annotated above. At home wound-care instructions: Edema will be treated with tubigrips in a double layer and have her continue to use lymphedema pumps, I advise try to utilize her lymphedema pumps 3 times daily if possible to see if this can provide further improvement. Will have her use Promogran Dyana and cover with a foam dressing to the left allen changed daily or more often as needed to manage her drainage. For the area of weeping on the left lateral calf, can also apply a Mepilex dressing or alternatively gauze and ABD secured with silicone tape and also change daily or more often as needed to manage the drainage. She was instructed to keep dressings clean and dry. With respect to her venous insufficiency, her most recent reflux study was in July. The reflux study did not show any left lower extremities reflux which would be amenable to ablation. Will plan to repeat a left lower extremity reflux study to confirm. If reflux is identified, then may be able to consider left lower extremity ablation as well; however if again no reflux is identified and there are no remaining targets for ablation. Further plan will be pending these duplex results.
[2024-05-05 10:46] VITALS: BP 128/67; PULSE 89; RESP 18; TEMP 35.9; BMI 49.8
--- NOTE | 2024-05-05 13:06 | PCM.WC.PN ---
History of Present Illness Date of Service: 05/05/24 Chief Complaint: B/L LE ulcers, bilateral lower extremity swelling History of Wound: Liz is a pleasant 74 yo woman that presents to the wound center for bilateral lower extremity edema and blisters and drainage of her bilateral lower extremities. She has had increased edema the last 2 weeks and her legs started seeping a few days ago. She has been wearing her tubigrip compression and had been using the lymphedema pumps until they started seeping fluid. She tries to elevate her legs when she is sitting but is not always consistent with doing this. She has been wrapping her leg with gauze when it is seeping but otherwise has not been doing any regular dressings. Patient has been treated at the wound center in the past for similar wounds, most recently October 2023. She has also been seen in the vascular surgery clinic where she was evaluated her for BLE DVT and venous insufficiency. 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 GSV ablation has been done to her right lower leg. She has received lymphedema pumps that were ordered during her last treatment course and has been using these. Last venous study was 03/2022. Last A1C 01/2023 was 6.4%. Last TSH - 01/2022 Patient's medical history is also significant for CHF, COPD, T2DM, lymphedema. She has a CPAP but has not been using this due to needing a new mask. She states that a prescription was to be sent and she never received the mask. Her current mask has a hole in it. Subjective Subjective Liz returns today for treatment of edema to bilateral lower legs. She tolerated tubigrip compression and lymphedema pumps. The left lateral leg is improved but there is still some skin breakdown and intermittent drainage. She is scheduled for repeat venous ultrasound on Wednesday. She has been elevating her legs and using lymphedema pumps as directed. She denies fever, chills. Objective Data Objective Data Vital Signs: Vital Signs Temp Pulse Resp BP Pulse Ox O2 Del Method 96.7 F L 89 18 128/67 H 94 Room Air 05/05/24 10:46 05/05/24 10:46 05/05/24 10:46 05/05/24 10:46 04/21/24 00:40 04/27/24 13:39 Oxygen Delivery Method Room Air Weight: 140.16 kg Body Mass Index (BMI) 49.8 Physical Exam Const alert, oriented x3 and no apparent distress General Appearance: cooperative and comfortable Nutritional Appearance: obese HEENT normocephalic and head/scalp atraumatic Lymph Lymphatic: lymphedema severe and pitting Resp normal respiratory effort Effort and Inspection: able to speak in complete sentences Cardio regular rate and regular rhythm Extremity General Extremity: edema bilateral lower extremity Details: severe (with skin changes associated with lymphedema, thickened nodular appearance from mid allen to ankle) Skin General Skin Exam: erythema, venous stasis and dermatitis Wounds: wounds noted Wound Narrative: as in clinical panel Psych mental status grossly normal, thought process normal, cooperative and affect normal Debridement Note Debridement Note Wound debrided: left allen Laterality: Left Type of Debridement: Selective debridement Depth: Down to and including healthy tissue Percentage of wound debrided: 100 Instrument Used: - (gauze) Tissue Removed: yellow slough Severity: Limited To Skin Breakdown Amount of bleeding with debridement: None Patient tolerated procedure: Patient tolerated procedure well Post-Debridement Measurements and Additional Note: Post-Debridement Measurements/Treatment - Nurse 1 - General Ulcer Assessment Start: 04/21/24 11:00 Freq: Status: Active Protocol: [email or web address].[email or web address] Activity Type Activity Date Activity User E-sign Co-sign Detail Recorded Client Recorded Date Recorded By Document 04/21/24 11:00 KW [id number] 04/21/24 11:11 KW Document 04/27/24 13:39 KW [id number] 04/27/24 13:48 KW Document 05/05/24 10:46 RB [id number] 05/05/24 10:47 RB 04/21/24 04/27/24 05/05/24 11:00 13:39 10:46 - Today's Visit Information Type of service Follow-up Visit Follow-up Visit Follow-up Visit (Physician/OPERATIONS PLANNER (Physician/OPERATIONS PLANNER (Physician/OPERATIONS PLANNER ) ) ) Arrival Mode Ambulatory, Ambulatory, Ambulatory Walker Walker Transfer Assistance None Accompanied by Patient Identification Verified (Name & Yes Yes Yes ) Patient Requires Transmission-Based No Precautions Height and Weight Body Mass Index (BMI) 49.8 49.8 49.8 BMI Classification Obese Obese Obese Vital Signs Temperature (97.8 F-99.1 F) 97.1 F L 97.1 F L 96.7 F L Temperature Source Temporal Temporal Temporal Pulse Rate (60-100) 76 86 89 Pulse Location Monitor Monitor Monitor Respiratory Rate (12-18) 18 18 18 Respiratory rate source Observation Observation Observation Oxygen Delivery Method Room Air Room Air Blood Pressure (90/60-120/80) 168/64 H 151/63 H 128/67 H Blood Pressure Mean (mm Hg) 98 92 87 Source Monitor Monitor Monitor Position Semi-Fowlers Semi-Fowlers Semi-Fowlers Blood Pressure Location Left Arm Left Arm Left Arm History Since Last Visit- (Skip if this is Patient's initial visit) Have you changed medications since your No No No last visit? Any new allergies or adverse reactions No No No Had a fall/change in ADL's that may No No No increase risk of falls Signs or symptoms of abuse and/or No No No neglect since last visit Have you been in the hospital since your No No No last visit? Has dressing in place as prescribed Yes Yes Yes Has compression in place as prescribed Yes Yes Yes Has offloadiing in place as prescribed N/A N/A No Experienced any changes in pain level or No No No management Left Footwear Regular Shoe Regular Shoe Right Footwear Regular Shoe Regular Shoe Pain Scale: 0-10 Numeric Is Patient Pain Free? Yes Yes Yes WC - Nurse 1 - General Ulcer Measurement Start: 04/21/24 11:00 Freq: Status: Active Protocol: Activity Type Activity Date Activity User E-sign Co-sign Detail Recorded Client Recorded Date Recorded By Document 04/21/24 11:00 KW [id number] 04/21/24 11:11 KW Document 04/27/24 13:39 KW [id number] 04/27/24 13:48 KW Document 05/05/24 10:46 RB [id number] 05/05/24 10:47 RB Edit Result 05/05/24 10:46 RB (1) [id number] 05/05/24 10:48 RB (1) Lower Limb Edema Present => Yes Right Calf (cm) => 55.2 Right Ankle (cm) => 29 Left Calf (cm) => 52.5 Left Ankle (cm) => 29.5 04/21/24 04/27/24 05/05/24 11:00 13:39 10:46 Wound Center Nurse 1 8. LLE lateral -Current Size (cm) - Length 0.1 -Current Size (cm) - Width 0.1 -Current Size (cm) - Depth 0.1 -Total Square Cm 0.01 -Exudate Amt Small -Exudate Type Serosanguineous -Wound Margin Indistinct, Non -Visible -Texture (Adrianna-wound Skin Appearance) Assessed -Moisture (Adrianna-wound Skin Appearance) Assessed, Maceration -Color (Adrianna-wound Skin Appearance) Assessed -Temperature (Adrianna-wound Skin No Abnormality Appearance) (Pt Warm) -Tenderness on Palpation (Adrianna-wound No Skin Appearance) -Ulcer Cleansing Rinsed/ Irrigated with Saline -Foul Odor after Cleansing No -Anesthetic Used 5% Lidocaine Gel #9 Left Lateral Allen -Combined with other wound No -Current Size (cm) - Length 1.3 0.1 -Current Size (cm) - Width 0.8 0.1 -Current Size (cm) - Depth 0.1 0.1 -Total Square Cm 1.04 0.01 -Tunneling No -Undermining/Tunneling No -Circular Undermining No -Exudate Amt Small Medium -Exudate Type Serosanguineous Serosanguineous -Wound Margin Distinct, Distinct, Outline Outline Attached Attached -Granulation Amt Small (1-33%) Medium (34-66%) -Granulation Quality Squ[place]rel [place] Squirrel [place] -Slough/Fibrin Yes -Necrosis Amt Large (67-100%) Small (1-33%) -Necrotic Tissue Type Adherent Slough Adherent Slough -Structure Exposed N/A -Texture (Adrianna-wound Skin Appearance) Assessed Assessed -Moisture (Adrianna-wound Skin Appearance) Assessed Assessed, Weeping -Color (Adrianna-wound Skin Appearance) Assessed Assessed -Temperature (Adrianna-wound Skin No Abnormality No Abnormality Appearance) (Pt Warm) (Pt Warm) -Tenderness on Palpation (Adrianna-wound No No Skin Appearance) -Ulcer Cleansing Wound Cleanser -Foul Odor after Cleansing No No -Anesthetic Used 5% Lidocaine Gel Lower Limb Edema Present Yes Right Calf (cm) 53 54 55.2 Right Ankle (cm) 29.5 29.5 29 Left Calf (cm) 51.5 54 52.5 Left Ankle (cm) 29 29 29.5 WC - Nurse 2 - General Ulcer CM Notes Start: 04/21/24 11:00 Freq: Status: Active Protocol: Activity Type Activity Date Activity User E-sign Co-sign Detail Recorded Client Recorded Date Recorded By Document 04/21/24 11:16 [id number] 04/21/24 11:24 Document 04/27/24 13:59 [id number] 04/27/24 14:00 Document 05/05/24 10:53 [id number] 05/05/24 11:01 04/21/24 04/27/24 05/05/24 11:16 13:59 10:53 Wound Center Nurse 2 8. LLE lateral -Time 11:16 -Correct Patient Yes -Correct Side, Site, Position Yes -Wound/Ulcer Outcome Healed- Epithelialized #10 Left Allen] -Time 11:01 -Correct Patient Yes -Correct Side, Site, Position Yes -Correct Procedure Yes -Procedure Performed Yes -Type of Procedure Debridement -Clinical Debridement Epidermis / Dermis -Tissue Removed Epidermis -Post Debridement (cm) - Length 1.0 -Post Debridement (cm) - Width 0.5 -Post Debridement (cm) - Depth 0.1 -Total Square (Post) (cm) 0.50 -Area of Debridement (cm) - Length 1.0 -Area of Debridement (cm) - Width 0.5 -Total Square (Area) (cm) 0.50 -Tunneling No -Undermining/Tunneling No -Circular Undermining No -Wound/Ulcer Outcome Not Healed -Ulcer Cleansing Rinsed/ Irrigated with Saline -Foul Odor after Cleansing No -Bioengineered Tissue No -Bleeding Controlled with Pressure -Treatment Response Procedure Tolerated Well -Debridement - Open, 1st 20sq cm Yes #9 Left Lateral Allen -Time 11:23 13:59 10:54 -Correct Patient Yes Yes Yes -Correct Side, Site, Position Yes Yes Yes -Correct Procedure Yes Yes -Procedure Performed Yes Yes -Type of Procedure Debridement Debridement -Clinical Debridement Subcutaneous Subcutaneous -Tissue Removed Subcutaneous Subcutaneous -Post Debridement (cm) - Length 1.8 1.1 -Post Debridement (cm) - Width 0.9 0.6 -Post Debridement (cm) - Depth 0.1 0.1 -Total Square (Post) (cm) 1.62 0.66 -Area of Debridement (cm) - Length 1.8 1.1 -Area of Debridement (cm) - Width 0.9 0.6 -Total Square (Area) (cm) 1.62 0.66 -Tunneling No No -Undermining/Tunneling No No -Circular Undermining No No -Wound/Ulcer Outcome Not Healed Not Healed Healed- Epithelialized -Ulcer Cleansing Rinsed/ Rinsed/ Irrigated with Irrigated with Saline Saline -Foul Odor after Cleansing No No -Bioengineered Tissue No No -Bleeding Controlled with Pressure Pressure -Treatment Response Procedure Procedure Tolerated Well Tolerated Well -Debridement - Subq, 1st 20sq cm Yes Yes Pain Scale: 0-10 Numeric Is Patient Pain Free? Yes Yes Yes WC - Nurse 3 - General Ulcer D/C NN Start: 04/21/24 11:00 Freq: Status: Active Protocol: Activity Type Activity Date Activity User E-sign Co-sign Detail Recorded Client Recorded Date Recorded By Document 04/21/24 11:38 RB [id number] 04/21/24 11:39 RB Document 04/27/24 14:47 KW [id number] 04/27/24 14:48 KW Document 05/05/24 11:13 KW [id number] 05/05/24 11:14 KW 04/21/24 04/27/24 05/05/24 11:38 14:47 11:13 Wound Care Center Nurse 3 #10 Left Allen] -Primary Dressing Applied Mepilex Border, Promogran -Mepilex Border 1 -Promogran 1 #9 Left Lateral Allen -Ulcer Cleansing Rinsed/ Irrigated with Saline -Primary Dressing Applied Mepilex Border, Mepilex Border, Promogran Promogran Dyana Matter -Primary Dressing Covered/Secured with Secured with Dry Gauze & Tape Roll Gauze, Secured with Tape -Mepilex Border 1 1 -Promogran 1 -Promogran Dyana Matter 1 Right -Tubular Bandage Double Layer Double Layer Double Layer -Size of Tubigrip Used Size F Size F Size F -Size F ($) 2 2 2 Left -Tubular Bandage Double Layer Double Layer Double Layer -Size of Tubigrip Used Size F Size F Size F -Size F ($) 2 2 2 Treatment Response Procedure Tolerated Well Pain Scale: 0-10 Numeric Is Patient Pain Free? Yes Yes Yes Teaching: Wound Center Control Swelling with Leg Elevation -Person Taught Patient -Teaching Method Discussion, Demonstration -Response to teaching Verbalize Understanding, Reinforcement Needed WC - Visit Discharge Discharge Condition Stable Ambulatory Status Ambulatory, Walker Transportation Private Auto Medication Reconcilliation completed & No provided to patient/care provider Clinical Summary of Care Provided Yes Assessment/Plan Assessment/Plan (1) Non-pressure chronic ulcer left lower leg, limited to breakdown skin: CODE(S): L97.921 - Non-pressure chronic ulcer of unspecified part of left lower leg limited to breakdown of skin (2) Venous insufficiency: CODE(S): I87.2 - Venous insufficiency (chronic) (peripheral) (3) Edema of both lower extremities: CODE(S): R60.0 - Localized edema (4) Lymphedema: CODE(S): I89.0 - Lymphedema, not elsewhere classified (5) Essential hypertension: CODE(S): I10 - Essential (primary) hypertension (6) Morbid obesity with BMI of 45.0-49.9, adult: CODE(S): E66.01 - Morbid (severe) obesity due to excess calories; Z68.42 - Body mass index [BMI] 45.0-49.9, adult (7) Venous stasis 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: CODE(S): I83.023 - Varicose veins of left lower extremity with ulcer of ankle; L97.321 - Non-pressure 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 QUALIFIERS: Varicose vein presence: with varicose veins Qualified Code(s): I83.023 - Varicose veins of left lower extremity with ulcer of ankle; L97.321 - Non-pressure 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 (8) Debility: CODE(S): R53.81 - Other malaise (9) Osteoarthritis: CODE(S): M19.90 - Unspecified osteoarthritis, unspecified site QUALIFIERS: Osteoarthritis location: multiple joints Osteoarthritis type: primary Qualified Code(s): M15.9 - Polyosteoarthritis, unspecified (10) COPD (chronic obstructive pulmonary disease): CODE(S): J44.9 - Chronic obstructive pulmonary disease, unspecified QUALIFIERS: COPD type: unspecified COPD Qualified Code(s): J44.9 - Chronic obstructive pulmonary disease, unspecified (11) Chronic hypoxemic respiratory failure: CODE(S): J96.11 - Chronic respiratory failure with hypoxia (12) Pulmonary hypertension: CODE(S): I27.20 - Pulmonary hypertension, unspecified (13) Hypothyroidism: CODE(S): E03.9 - Hypothyroidism, unspecified QUALIFIERS: Hypothyroidism type: unspecified Qualified Code(s): E03.9 - Hypothyroidism, unspecified (14) Type 2 diabetes mellitus: CODE(S): E11.9 - Type 2 diabetes mellitus without complications QUALIFIERS: Diabetes mellitus chcf insulin use: without chcf use Diabetes mellitus complication status: with other specified complication Qualified Code(s): E11.69 - Type 2 diabetes mellitus with other specified complication (15) DOLORES (obstructive sleep apnea): CODE(S): G47.33 - Obstructive sleep apnea (adult) (pediatric) PLAN: Plan Evaluation and debridement performed today in clinic as annotated above. At home wound-care instructions: Edema will be treated with tubigrips in a double layer and have her continue to use lymphedema pumps. Will have her use Promogran and cover with a foam dressing to the left allen changed every other day for moderate drainage. She was instructed to keep dressings clean and dry. Will have her use lymphedema pumps for 60 minutes 2-3 times daily. Off-loading: The patient was instructed to avoid pressure and friction on the affected areas. Reposition every 2 hours at minimum. Avoid prolonged standing and/or dangling of legs. When seated, feet should be elevated at chest level. Frequent ambulation is encouraged. Diet: Patient encouraged to increase protein intake while taking caution to avoid high carbohydrate and/or sugar intake. Encouraged weight loss. Labs/cultures/imaging: Wound culture from 03/31/24 positive for multiple bacteria. She completed antibiotic. Venous ultrasound scheduled for Wednesday05/09/24 Encouraged her to get her CPAP mask to improve DOLORES and pulmonary HTN treatment compliance which is adding to her decompensated lymphedema. Follow-up: Will have her follow up in 1 week. Return sooner or report to the emergency room should symptoms worsen, or new symptoms arise. Note: [employer] speech recognition insurance claims representative software was used to create portions of this document. Sound-alike and misspelled words, as well as other insurance claims representative errors may be contained in the documentation.
--- NOTE | 2024-05-09 12:55 | VDLE_ITS ---
Reason For Study: Left leg venous ulceration Procedure LEFT This is a venous duplex using B-mode, color CFV is compressible, spontaneous, phasic, flow and spectral Doppler. competent, and demonstrates normal Exam performed in department. augmentation. Patient was scanned in reverse Trendelenburg FV is compressible, spontaneous, phasic, position during reflux assessment. competent and demonstrates normal A preliminary report was called and/or faxed augmentation. to [facility]. POP V is compressible, spontaneous, phasic, competent and demonstrates normal augmentation. T/P Trunk is compressible. PTV is compressible. FV distal only visualized with color appear patent. PeroV not visualized due to pt body habitus. SFJ is competent and measures 0.64 cm. GSV proximal thigh measures 0.76 x 0.81 cm. GSV at knee measures 0.59 x 0.61 cm. GSV INCOMPETENT throughout for greater than 0.5 seconds. ASV mid calf is INCOMPETENT for greater than 0.5 seconds and measures 0.40 x 0.39 cm. INCOMPETENT slot supervisor noted 7 cm and 18 cm above medial malleolus. SSV mid calf is competent and measures 0.41 x 0.40 cm. VL/Venous Duplex US, Unilateral Interpretation Summary Deep veins of the left lower extremity are patent and compressible segmentally. There is no evidence of left lower extremity deep vein thrombosis. The left great saphenous vein joya ears patent and compressible segmentally. Positive for reflux in the left great saphenous vein throughout, accessory saph enous vein in the calf, and calf perforators. Ordering Physician: Molly Beck Referring Physician: Luis Cortés Performed By: Savanah Joiner RVT
[2024-05-12 11:12] VITALS: BP 142/74; PULSE 91; RESP 18; TEMP 35.8; BMI 49.8
--- NOTE | 2024-05-12 13:22 | PCM.WC.PN ---
History of Present Illness Date of Service: 05/12/24 Chief Complaint: B/L LE ulcers, bilateral lower extremity swelling History of Wound: Liz is a pleasant 74 yo woman that presents to the wound center for bilateral lower extremity edema and blisters and drainage of her bilateral lower extremities. She has had increased edema the last 2 weeks and her legs started seeping a few days ago. She has been wearing her tubigrip compression and had been using the lymphedema pumps until they started seeping fluid. She tries to elevate her legs when she is sitting but is not always consistent with doing this. She has been wrapping her leg with gauze when it is seeping but otherwise has not been doing any regular dressings. Patient has been treated at the wound center in the past for similar wounds, most recently October 2023. She has also been seen in the vascular surgery clinic where she was evaluated her for BLE DVT and venous insufficiency. 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 GSV ablation has been done to her right lower leg. She has received lymphedema pumps that were ordered during her last treatment course and has been using these. Last venous study was 03/2022. Last A1C 01/2023 was 6.4%. Last TSH - 01/2022 Patient's medical history is also significant for CHF, COPD, T2DM, lymphedema. She has a CPAP but has not been using this due to needing a new mask. She states that a prescription was to be sent and she never received the mask. Her current mask has a hole in it. Subjective Subjective Liz returns today for treatment of edema to bilateral lower legs. She tolerated tubigrip compression and lymphedema pumps. The left lateral leg is improved but there is still some skin breakdown and intermittent drainage. Venous ultrasound showed incompetence of left lower extremity veins and she has been contacted by vascular to have ablation but no date is scheduled yet. She has been elevating her legs and using lymphedema pumps as directed. She denies fever, chills. Objective Data Objective Data Vital Signs: Vital Signs Temp Pulse Resp BP Pulse Ox O2 Del Method 96.4 F L 91 18 142/74 H 94 Room Air 05/12/24 11:12 05/12/24 11:12 05/12/24 11:12 05/12/24 11:12 04/21/24 00:40 05/12/24 11:12 Oxygen Delivery Method Room Air Weight: 140.16 kg Body Mass Index (BMI) 49.8 Lab / Micro Data Micro: Microbiology 05/05/24 10:58 Wound - Leg, Left Gram Stain - Final 05/05/24 10:58 Wound - Leg, Left Wound Culture - Final Meth. resistant Staph. aureus Streptococcus group C 05/05/24 10:58 Wound - Leg, Left Anaerobic Culture - Final No anaerobic bacteria isolated. Physical Exam Const alert, oriented x3 and no apparent distress General Appearance: cooperative and comfortable Nutritional Appearance: obese HEENT normocephalic and head/scalp atraumatic Lymph Lymphatic: lymphedema severe and pitting Resp normal respiratory effort Effort and Inspection: able to speak in complete sentences Cardio regular rate and regular rhythm Extremity General Extremity: edema bilateral lower extremity Details: severe (with skin changes associated with lymphedema, thickened nodular appearance from mid allen to ankle) Skin General Skin Exam: erythema, venous stasis and dermatitis Wounds: wounds noted Wound Narrative: as in clinical panel Psych mental status grossly normal, thought process normal, cooperative and affect normal Debridement Note Debridement Note Wound debrided: left allen Laterality: Left Type of Debridement: Excisional debridement Anesthesia Used: 5% Lidocaine Gel Depth: Down to and including healthy tissue and in the subcutaneous layer Percentage of wound debrided: 100 Instrument Used: 3mm curette Tissue Removed: Yellow slough, devitalized tissue Severity: Fat Layer Exposed Amount of bleeding with debridement: Mild Bleeding Controlled with: Compression and gauze Patient tolerated procedure: Patient tolerated procedure well Post-Debridement Measurements and Additional Note: Post-Debridement Measurements/Treatment WC - Nurse 1 - General Ulcer Assessment Start: 04/21/24 11:00 Freq: Status: Active Protocol: [email or web address].[email or web address] Activity Type Activity Date Activity User E-sign Co-sign Detail Recorded Client Recorded Date Recorded By Document 04/21/24 11:00 KW [id number] 04/21/24 11:11 KW Document 04/27/24 13:39 KW [id number] 04/27/24 13:48 KW Document 05/05/24 10:46 RB [id number] 05/05/24 10:47 RB Document 05/12/24 11:12 KW [id number] 05/12/24 11:20 KW 04/21/24 04/27/24 05/05/24 11:00 13:39 10:46 - Today's Visit Information Type of service Follow-up Visit Follow-up Visit Follow-up Visit (Physician/WAREHOUSE WORKER 2ND SHIFT (Physician/WAREHOUSE WORKER 2ND SHIFT (Physician/WAREHOUSE WORKER 2ND SHIFT ) ) ) Arrival Mode Ambulatory, Ambulatory, Ambulatory Walker Walker Transfer Assistance None Accompanied by Patient Identification Verified (Name & Yes Yes Yes ) Patient Requires Transmission-Based No Precautions Height and Weight Body Mass Index (BMI) 49.8 49.8 49.8 BMI Classification Obese Obese Obese Vital Signs Temperature (97.8 F-99.1 F) 97.1 F L 97.1 F L 96.7 F L Temperature Source Temporal Temporal Temporal Pulse Rate (60-100) 76 86 89 Pulse Location Monitor Monitor Monitor Respiratory Rate (12-18) 18 18 18 Respiratory rate source Observation Observation Observation Oxygen Delivery Method Room Air Room Air Blood Pressure (90/60-120/80) 168/64 H 151/63 H 128/67 H Blood Pressure Mean (mm Hg) 98 92 87 Source Monitor Monitor Monitor Position Semi-Fowlers Semi-Fowlers Semi-Fowlers Blood Pressure Location Left Arm Left Arm Left Arm History Since Last Visit- (Skip if this is Patient's initial visit) Have you changed medications since your No No No last visit? Any new allergies or adverse reactions No No No Had a fall/change in ADL's that may No No No increase risk of falls Signs or symptoms of abuse and/or No No No neglect since last visit Have you been in the hospital since your No No No last visit? Has dressing in place as prescribed Yes Yes Yes Has compression in place as prescribed Yes Yes Yes Has offloadiing in place as prescribed N/A N/A No Experienced any changes in pain level or No No No management Left Footwear Regular Shoe Regular Shoe Right Footwear Regular Shoe Regular Shoe Pain Scale: 0-10 Numeric Is Patient Pain Free? Yes Yes Yes 05/12/24 11:12 - Today's Visit Information Type of service Follow-up Visit (Physician/WAREHOUSE WORKER 2ND SHIFT ) Arrival Mode Ambulatory, Walker Transfer Assistance Accompanied by Patient Identification Verified (Name & Yes ) Patient Requires Transmission-Based Precautions Height and Weight Body Mass Index (BMI) 49.8 BMI Classification Obese Vital Signs Temperature (97.8 F-99.1 F) 96.4 F L Temperature Source Temporal Pulse Rate (60-100) 91 Pulse Location Monitor Respiratory Rate (12-18) 18 Respiratory rate source Observation Oxygen Delivery Method Room Air Blood Pressure (90/60-120/80) 142/74 H Blood Pressure Mean (mm Hg) 96 Source Monitor Position Semi-Fowlers Blood Pressure Location Left Forearm History Since Last Visit- (Skip if this is Patient's initial visit) Have you changed medications since your No last visit? Any new allergies or adverse reactions No Had a fall/change in ADL's that may No increase risk of falls Signs or symptoms of abuse and/or No neglect since last visit Have you been in the hospital since your No last visit? Has dressing in place as prescribed Yes Has compression in place as prescribed Yes Has offloadiing in place as prescribed N/A Experienced any changes in pain level or No management Left Footwear Regular Shoe Right Footwear Regular Shoe Pain Scale: 0-10 Numeric Is Patient Pain Free? Yes WC - Nurse 1 - General Ulcer Measurement Start: 04/21/24 11:00 Freq: Status: Active Protocol: Activity Type Activity Date Activity User E-sign Co-sign Detail Recorded Client Recorded Date Recorded By Document 04/21/24 11:00 KW [id number] 04/21/24 11:11 KW Document 04/27/24 13:39 KW [id number] 04/27/24 13:48 KW Document 05/05/24 10:46 RB [id number] 05/05/24 10:47 RB Edit Result 05/05/24 10:46 RB (1) [id number] 05/05/24 10:48 RB Document 05/12/24 11:12 KW [id number] 05/12/24 11:20 KW (1) Lower Limb Edema Present => Yes Right Calf (cm) => 55.2 Right Ankle (cm) => 29 Left Calf (cm) => 52.5 Left Ankle (cm) => 29.5 04/21/24 04/27/24 05/05/24 11:00 13:39 10:46 Wound Center Nurse 1 #9 Left Lateral Allen -Combined with other wound No -Current Size (cm) - Length 1.3 0.1 -Current Size (cm) - Width 0.8 0.1 -Current Size (cm) - Depth 0.1 0.1 -Total Square Cm 1.04 0.01 -Tunneling No -Undermining/Tunneling No -Circular Undermining No -Exudate Amt Small Medium -Exudate Type Serosanguineous Serosanguineous -Wound Margin Distinct, Distinct, Outline Outline Attached Attached -Granulation Amt Small (1-33%) Medium (34-66%) -Granulation Quality [place] -Slough/Fibrin Yes -Necrosis Amt Large (67-100%) Small (1-33%) -Necrotic Tissue Type Adherent Slough Adherent Slough -Structure Exposed N/A -Texture (Adrianna-wound Skin Appearance) Assessed Assessed -Moisture (Adrianna-wound Skin Appearance) Assessed Assessed, Weeping -Color (Adrianna-wound Skin Appearance) Assessed Assessed -Temperature (Adrianna-wound Skin No Abnormality No Abnormality Appearance) (Pt Warm) (Pt Warm) -Tenderness on Palpation (Adrianna-wound No No Skin Appearance) -Ulcer Cleansing Wound Cleanser -Foul Odor after Cleansing No No -Anesthetic Used 5% Lidocaine Gel 8. LLE lateral -Current Size (cm) - Length 0.1 -Current Size (cm) - Width 0.1 -Current Size (cm) - Depth 0.1 -Total Square Cm 0.01 -Exudate Amt Small -Exudate Type Serosanguineous -Wound Margin Indistinct, Non -Visible -Texture (Adrianna-wound Skin Appearance) Assessed -Moisture (Adrianna-wound Skin Appearance) Assessed, Maceration -Color (Adrianna-wound Skin Appearance) Assessed -Temperature (Adrianna-wound Skin No Abnormality Appearance) (Pt Warm) -Tenderness on Palpation (Adrianna-wound No Skin Appearance) -Ulcer Cleansing Rinsed/ Irrigated with Saline -Foul Odor after Cleansing No -Anesthetic Used 5% Lidocaine Gel #10 Left Allen] -Current Size (cm) - Length -Current Size (cm) - Width -Current Size (cm) - Depth -Total Square Cm -Exudate Amt -Exudate Type -Wound Margin -Granulation Amt -Granulation Quality -Texture (Adrianna-wound Skin Appearance) -Moisture (Adrianna-wound Skin Appearance) -Color (Adrianna-wound Skin Appearance) -Temperature (Adrianna-wound Skin Appearance) -Tenderness on Palpation (Adrianna-wound Skin Appearance) -Ulcer Cleansing -Foul Odor after Cleansing -Anesthetic Used Lower Limb Edema Present Yes Right Calf (cm) 53 54 55.2 Right Ankle (cm) 29.5 29.5 29 Left Calf (cm) 51.5 54 52.5 Left Ankle (cm) 29 29 29.5 05/12/24 11:12 Wound Center Nurse 1 #9 Left Lateral Allen -Combined with other wound -Current Size (cm) - Length 0.1 -Current Size (cm) - Width 0.1 -Current Size (cm) - Depth 0.1 -Total Square Cm 0.01 -Tunneling -Undermining/Tunneling -Circular Undermining -Exudate Amt Medium -Exudate Type Serosanguineous -Wound Margin -Granulation Amt Large (67-100%) -Granulation Quality [place],Red -Slough/Fibrin -Necrosis Amt -Necrotic Tissue Type -Structure Exposed -Texture (Adrianna-wound Skin Appearance) Assessed -Moisture (Adrianna-wound Skin Appearance) Assessed, Maceration -Color (Adrianna-wound Skin Appearance) Assessed -Temperature (Adrianna-wound Skin No Abnormality Appearance) (Pt Warm) -Tenderness on Palpation (Adrianna-wound No Skin Appearance) -Ulcer Cleansing Soap and Water -Foul Odor after Cleansing No -Anesthetic Used 5% Lidocaine Gel 8. LLE lateral -Current Size (cm) - Length -Current Size (cm) - Width -Current Size (cm) - Depth -Total Square Cm -Exudate Amt -Exudate Type -Wound Margin -Texture (Adrianna-wound Skin Appearance) -Moisture (Adrianna-wound Skin Appearance) -Color (Adrianna-wound Skin Appearance) -Temperature (Adrianna-wound Skin Appearance) -Tenderness on Palpation (Adrianna-wound Skin Appearance) -Ulcer Cleansing -Foul Odor after Cleansing -Anesthetic Used #10 Left Allen] -Current Size (cm) - Length 0.1 -Current Size (cm) - Width 0.1 -Current Size (cm) - Depth 0.1 -Total Square Cm 0.01 -Exudate Amt Small -Exudate Type Serosanguineous -Wound Margin Distinct, Outline Attached -Granulation Amt Large (67-100%) -Granulation Quality [place],Red -Texture (Adrianna-wound Skin Appearance) Assessed -Moisture (Adrianna-wound Skin Appearance) Assessed, Maceration -Color (Adrianna-wound Skin Appearance) Assessed -Temperature (Adrianna-wound Skin No Abnormality Appearance) (Pt Warm) -Tenderness on Palpation (Adrianna-wound Yes Skin Appearance) -Ulcer Cleansing Soap and Water -Foul Odor after Cleansing No -Anesthetic Used 5% Lidocaine Gel Lower Limb Edema Present Right Calf (cm) 53.5 Right Ankle (cm) 29.5 Left Calf (cm) 54.2 Left Ankle (cm) 29.5 WC - Nurse 2 - General Ulcer CM Notes Start: 04/21/24 11:00 Freq: Status: Active Protocol: Activity Type Activity Date Activity User E-sign Co-sign Detail Recorded Client Recorded Date Recorded By Document 04/21/24 11:16 [id number] 04/21/24 11:24 Document 04/27/24 13:59 [id number] 04/27/24 14:00 Document 05/05/24 10:53 [id number] 05/05/24 11:01 Document 05/12/24 11:36 [id number] 05/12/24 11:39 04/21/24 04/27/24 05/05/24 11:16 13:59 10:53 Wound Center Nurse 2 #9 Left Lateral Allen -Time 11:23 13:59 10:54 -Correct Patient Yes Yes Yes -Correct Side, Site, Position Yes Yes Yes -Correct Procedure Yes Yes -Procedure Performed Yes Yes -Type of Procedure Debridement Debridement -Clinical Debridement Subcutaneous Subcutaneous -Tissue Removed Subcutaneous Subcutaneous -Post Debridement (cm) - Length 1.8 1.1 -Post Debridement (cm) - Width 0.9 0.6 -Post Debridement (cm) - Depth 0.1 0.1 -Total Square (Post) (cm) 1.62 0.66 -Area of Debridement (cm) - Length 1.8 1.1 -Area of Debridement (cm) - Width 0.9 0.6 -Total Square (Area) (cm) 1.62 0.66 -Tunneling No No -Undermining/Tunneling No No -Circular Undermining No No -Wound/Ulcer Outcome Not Healed Not Healed Healed- Epithelialized -Ulcer Cleansing Rinsed/ Rinsed/ Irrigated with Irrigated with Saline Saline -Foul Odor after Cleansing No No -Bioengineered Tissue No No -Bleeding Controlled with Pressure Pressure -Treatment Response Procedure Procedure Tolerated Well Tolerated Well -Debridement - Subq, 1st 20sq cm Yes Yes 8. LLE lateral -Time 11:16 -Correct Patient Yes -Correct Side, Site, Position Yes -Wound/Ulcer Outcome Healed- Epithelialized #10 Left Allen] -Time 11:01 -Correct Patient Yes -Correct Side, Site, Position Yes -Correct Procedure Yes -Procedure Performed Yes -Type of Procedure Debridement -Clinical Debridement Epidermis / Dermis -Tissue Removed Epidermis -Post Debridement (cm) - Length 1.0 -Post Debridement (cm) - Width 0.5 -Post Debridement (cm) - Depth 0.1 -Total Square (Post) (cm) 0.50 -Area of Debridement (cm) - Length 1.0 -Area of Debridement (cm) - Width 0.5 -Total Square (Area) (cm) 0.50 -Tunneling No -Undermining/Tunneling No -Circular Undermining No -Wound/Ulcer Outcome Not Healed -Ulcer Cleansing Rinsed/ Irrigated with Saline -Foul Odor after Cleansing No -Bioengineered Tissue No -Bleeding Controlled with Pressure -Treatment Response Procedure Tolerated Well -Debridement - Open, 1st 20sq cm Yes -Debridement - Subq, 1st 20sq cm Pain Scale: 0-10 Numeric Is Patient Pain Free? Yes Yes Yes 05/12/24 11:36 Wound Center Nurse 2 #9 Left Lateral Allen -Time -Correct Patient -Correct Side, Site, Position -Correct Procedure -Procedure Performed -Type of Procedure -Clinical Debridement -Tissue Removed -Post Debridement (cm) - Length -Post Debridement (cm) - Width -Post Debridement (cm) - Depth -Total Square (Post) (cm) -Area of Debridement (cm) - Length -Area of Debridement (cm) - Width -Total Square (Area) (cm) -Tunneling -Undermining/Tunneling -Circular Undermining -Wound/Ulcer Outcome -Ulcer Cleansing -Foul Odor after Cleansing -Bioengineered Tissue -Bleeding Controlled with -Treatment Response -Debridement - Subq, 1st 20sq cm 8. LLE lateral -Time -Correct Patient -Correct Side, Site, Position -Wound/Ulcer Outcome #10 Left Allen] -Time 11:36 -Correct Patient Yes -Correct Side, Site, Position Yes -Correct Procedure Yes -Procedure Performed Yes -Type of Procedure Debridement -Clinical Debridement Subcutaneous -Tissue Removed Subcutaneous -Post Debridement (cm) - Length 2.0 -Post Debridement (cm) - Width 1.0 -Post Debridement (cm) - Depth 0.1 -Total Square (Post) (cm) 2.00 -Area of Debridement (cm) - Length 2.0 -Area of Debridement (cm) - Width 1.0 -Total Square (Area) (cm) 2.00 -Tunneling No -Undermining/Tunneling No -Circular Undermining No -Wound/Ulcer Outcome Not Healed -Ulcer Cleansing Rinsed/ Irrigated with Saline -Foul Odor after Cleansing No -Bioengineered Tissue No -Bleeding Controlled with Pressure -Treatment Response Procedure Tolerated Well -Debridement - Open, 1st 20sq cm -Debridement - Subq, 1st 20sq cm Yes Pain Scale: 0-10 Numeric Is Patient Pain Free? Yes WC - Nurse 3 - General Ulcer D/C NN Start: 04/21/24 11:00 Freq: Status: Active Protocol: Activity Type Activity Date Activity User E-sign Co-sign Detail Recorded Client Recorded Date Recorded By Document 04/21/24 11:38 RB [id number] 04/21/24 11:39 RB Document 04/27/24 14:47 KW [id number] 04/27/24 14:48 KW Document 05/05/24 11:13 KW [id number] 05/05/24 11:14 KW Document 05/12/24 11:59 RB [id number] 05/12/24 12:00 RB 04/21/24 04/27/24 05/05/24 11:38 14:47 11:13 Wound Care Center Nurse 3 #9 Left Lateral Allen -Ulcer Cleansing Rinsed/ Irrigated with Saline -Primary Dressing Applied Mepilex Border, Mepilex Border, Promogran Promogran Dyana Matter -Primary Dressing Covered/Secured with Secured with Dry Gauze & Tape Roll Gauze, Secured with Tape -Mepilex Border 1 1 -Promogran 1 -Promogran Dyana Matter 1 #10 Left Allen] -Ulcer Cleansing -Primary Dressing Applied Mepilex Border, Promogran -Mepilex Border 1 -Promogran 1 Right -Tubular Bandage Double Layer Double Layer Double Layer -Size of Tubigrip Used Size F Size F Size F -Size F ($) 2 2 2 Left -Tubular Bandage Double Layer Double Layer Double Layer -Size of Tubigrip Used Size F Size F Size F -Size F ($) 2 2 2 Treatment Response Procedure Tolerated Well Pain Scale: 0-10 Numeric Is Patient Pain Free? Yes Yes Yes Teaching: Wound Center Control Swelling with Leg Elevation -Person Taught Patient -Teaching Method Discussion, Demonstration -Response to teaching Verbalize Understanding, Reinforcement Needed Compression Wraps & Stockings -Person Taught -Teaching Method -Response to teaching WC - Visit Discharge Discharge Condition Stable Ambulatory Status Ambulatory, Walker Transportation Private Auto Medication Reconcilliation completed & No provided to patient/care provider Clinical Summary of Care Provided Yes 05/12/24 11:59 Wound Care Center Nurse 3 #9 Left Lateral Allen -Ulcer Cleansing -Primary Dressing Applied -Primary Dressing Covered/Secured with -Mepilex Border -Promogran -Promogran Dyana Matter #10 Left Allen] -Ulcer Cleansing Wound Cleanser -Primary Dressing Applied Mepilex Border, Promogran -Mepilex Border 2 -Promogran 1 Right -Tubular Bandage Double Layer -Size of Tubigrip Used Size F -Size F ($) 2 Left -Tubular Bandage Double Layer -Size of Tubigrip Used Size F -Size F ($) 2 Treatment Response Procedure Tolerated Well Pain Scale: 0-10 Numeric Is Patient Pain Free? Yes Teaching: Wound Center Control Swelling with Leg Elevation -Person Taught Patient -Teaching Method Discussion, Demonstration -Response to teaching Reinforcement Needed Compression Wraps & Stockings -Person Taught Patient -Teaching Method Discussion, Demonstration -Response to teaching Verbalize Understanding WC - Visit Discharge Discharge Condition Stable Ambulatory Status Ambulatory, Walker Transportation Private Auto Medication Reconcilliation completed & No provided to patient/care provider Clinical Summary of Care Provided Yes Assessment/Plan Assessment/Plan (1) Non-pressure chronic ulcer left lower leg, limited to breakdown skin: CODE(S): L97.921 - Non-pressure chronic ulcer of unspecified part of left lower leg limited to breakdown of skin (2) Venous insufficiency: CODE(S): I87.2 - Venous insufficiency (chronic) (peripheral) (3) Edema of both lower extremities: CODE(S): R60.0 - Localized edema (4) Lymphedema: CODE(S): I89.0 - Lymphedema, not elsewhere classified (5) Essential hypertension: CODE(S): I10 - Essential (primary) hypertension (6) Morbid obesity with BMI of 45.0-49.9, adult: CODE(S): E66.01 - Morbid (severe) obesity due to excess calories; Z68.42 - Body mass index [BMI] 45.0-49.9, adult (7) Venous stasis 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: CODE(S): I83.023 - Varicose veins of left lower extremity with ulcer of ankle; L97.321 - Non-pressure 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 QUALIFIERS: Varicose vein presence: with varicose veins Qualified Code(s): I83.023 - Varicose veins of left lower extremity with ulcer of ankle; L97.321 - Non-pressure 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 (8) Debility: CODE(S): R53.81 - Other malaise (9) Osteoarthritis: CODE(S): M19.90 - Unspecified osteoarthritis, unspecified site QUALIFIERS: Osteoarthritis location: multiple joints Osteoarthritis type: primary Qualified Code(s): M15.9 - Polyosteoarthritis, unspecified (10) COPD (chronic obstructive pulmonary disease): CODE(S): J44.9 - Chronic obstructive pulmonary disease, unspecified QUALIFIERS: COPD type: unspecified COPD Qualified Code(s): J44.9 - Chronic obstructive pulmonary disease, unspecified (11) Chronic hypoxemic respiratory failure: CODE(S): J96.11 - Chronic respiratory failure with hypoxia (12) Pulmonary hypertension: CODE(S): I27.20 - Pulmonary hypertension, unspecified (13) Hypothyroidism: CODE(S): E03.9 - Hypothyroidism, unspecified QUALIFIERS: Hypothyroidism type: unspecified Qualified Code(s): E03.9 - Hypothyroidism, unspecified (14) Type 2 diabetes mellitus: CODE(S): E11.9 - Type 2 diabetes mellitus without complications QUALIFIERS: Diabetes mellitus complication status: with other specified complication Diabetes mellitus mcc insulin use: without terminal operations supervisor use Qualified Code(s): E11.69 - Type 2 diabetes mellitus with other specified complication (15) DOLORES (obstructive sleep apnea): CODE(S): G47.33 - Obstructive sleep apnea (adult) (pediatric) PLAN: Plan Evaluation and debridement performed today in clinic as annotated above. At home wound-care instructions: Edema will be treated with tubigrips in a double layer and have her continue to use lymphedema pumps. Will have her use Promogran and cover with a foam dressing to the left allen changed every other day for moderate drainage. She was instructed to keep dressings clean and dry. Will have her use lymphedema pumps for 60 minutes 2-3 times daily. Off-loading: The patient was instructed to avoid pressure and friction on the affected areas. Reposition every 2 hours at minimum. Avoid prolonged standing and/or dangling of legs. When seated, feet should be elevated at chest level. Frequent ambulation is encouraged. Diet: Patient encouraged to increase protein intake while taking caution to avoid high carbohydrate and/or sugar intake. Encouraged weight loss. Labs/cultures/imaging: Wound Culture of left allen ulcer last week showed MRSA and she was started on Bactrim DS. Also will give her mupirocin to apply to nose to clear colonization. Venous ultrasound showed incompetence of veins of left lower extremity and vascular plans on ablation. Encouraged her to get her CPAP mask to improve DOLORES and pulmonary HTN treatment compliance which is adding to her decompensated lymphedema. Follow-up: Will have her follow up in 2 weeks. Return sooner or report to the emergency room should symptoms worsen, or new symptoms arise. Note: [employer] speech recognition heat engineering teacher software was used to create portions of this document. Sound-alike and misspelled words, as well as other heat engineering teacher errors may be contained in the documentation.
== END 2024-05-20 23:59 | disposition home or self-care (01) ==
LOC: WC 10:45
PROVIDERS: PCP Internal Medicine; Referring Provider Internal Medicine; Visit Provider Family Medicine
DX: I83.023 Varicose veins of left lower extremity with ulcer of ankle (principal); L97.321 Non-pressure chronic 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; L97.822 Non-pressure chronic ulcer of other part of left lower leg with fat layer exposed; J96.11 Chronic respiratory failure with hypoxia; I11.0 Hypertensive heart disease with heart failure; I27.20 Pulmonary hypertension, unspecified; I50.9 Heart failure, unspecified; J44.9 Chronic obstructive pulmonary disease, unspecified; E66.01 Morbid (severe) obesity due to excess calories; Z68.42 Body mass index [BMI] 45.0-49.9, adult; Z86.718 Personal history of other venous thrombosis and embolism; M79.89 Other specified soft tissue disorders; I89.0 Lymphedema, not elsewhere classified; E03.9 Hypothyroidism, unspecified; R53.81 Other malaise; M15.9 Polyosteoarthritis, unspecified; I87.2 Venous insufficiency (chronic) (peripheral); G47.33 Obstructive sleep apnea (adult) (pediatric); Z79.890 Hormone replacement therapy; Z79.899 Other long term (current) drug therapy
CPT/HCPCS: 11042; 87070; 87075; 87077; 87186; 87205; 93971; 97597

== ENCOUNTER 2024-06-16 10:30 | Outpatient (RCR) | payer MEDICARE, MEDICAID, SELFPAY ==
[2024-05-21 00:47] VITALS: BP 160/93; PULSE 83; RESP 18; TEMP 36.4; O2SAT 94; BMI 49.8
[2024-05-26 11:20] VITALS: BP 158/67; PULSE 91; RESP 18; TEMP 36.4; BMI 49.8
--- NOTE | 2024-05-26 14:00 | PCM.WC.PN ---
History of Present Illness Date of Service: 05/26/24 Chief Complaint: B/L LE ulcers, bilateral lower extremity swelling History of Wound: Liz is a pleasant 74 yo woman that presents to the wound center for bilateral lower extremity edema and blisters and drainage of her bilateral lower extremities. She has had increased edema the last 2 weeks and her legs started seeping a few days ago. She has been wearing her tubigrip compression and had been using the lymphedema pumps until they started seeping fluid. She tries to elevate her legs when she is sitting but is not always consistent with doing this. She has been wrapping her leg with gauze when it is seeping but otherwise has not been doing any regular dressings. Patient has been treated at the wound center in the past for similar wounds, most recently October 2023. She has also been seen in the vascular surgery clinic where she was evaluated her for BLE DVT and venous insufficiency. 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 GSV ablation has been done to her right lower leg. She has received lymphedema pumps that were ordered during her last treatment course and has been using these. Last venous study was 03/2022. Last A1C 01/2023 was 6.4%. Last TSH - 01/2022 Patient's medical history is also significant for CHF, COPD, T2DM, lymphedema. She has a CPAP but has not been using this due to needing a new mask. She states that a prescription was to be sent and she never received the mask. Her current mask has a hole in it. Subjective Subjective Liz returns today for treatment of edema to bilateral lower legs. She tolerated tubigrip compression and lymphedema pumps. The left lateral leg is improved but there is still some skin breakdown and intermittent drainage. Venous ultrasound showed incompetence of left lower extremity veins and she has been contacted by vascular to have ablation but no date is scheduled yet. She has been elevating her legs and using lymphedema pumps as directed. She denies fever, chills. Objective Data Objective Data Vital Signs: Vital Signs Temp Pulse Resp BP Pulse Ox O2 Del Method 97.5 F L 91 18 158/67 H 94 Room Air 05/26/24 11:20 05/26/24 11:20 05/26/24 11:20 05/26/24 11:20 05/21/24 00:47 05/26/24 11:20 Oxygen Delivery Method Room Air Weight: 140.16 kg Body Mass Index (BMI) 49.8 Physical Exam Const alert, oriented x3 and no apparent distress General Appearance: cooperative and comfortable Nutritional Appearance: obese HEENT normocephalic and head/scalp atraumatic Lymph Lymphatic: lymphedema severe and pitting Resp normal respiratory effort Effort and Inspection: able to speak in complete sentences Cardio regular rate and regular rhythm Extremity General Extremity: edema bilateral lower extremity Details: severe (with skin changes associated with lymphedema, thickened nodular appearance from mid allen to ankle) Skin General Skin Exam: erythema, venous stasis and dermatitis Wounds: wounds noted Wound Narrative: as in clinical panel Psych mental status grossly normal, thought process normal, cooperative and affect normal Debridement Note Debridement Note Wound debrided: left allen Laterality: Left Type of Debridement: Selective debridement Anesthesia Used: 4% Lidocaine Solution Depth: Down to and including healthy tissue and in the subcutaneous layer Percentage of wound debrided: 100 Instrument Used: 3mm curette Tissue Removed: Yellow slough, devitalized tissue Severity: Limited To Skin Breakdown Amount of bleeding with debridement: None Patient tolerated procedure: Patient tolerated procedure well Post-Debridement Measurements and Additional Note: Post-Debridement Measurements/Treatment - Nurse 1 - General Ulcer Assessment Start: 05/26/24 11:20 Freq: Status: Active Protocol: KELSEY Activity Type Activity Date Activity User E-sign Co-sign Detail Recorded Client Recorded Date Recorded By Document 05/26/24 11:20 KW [id number] 05/26/24 11:30 KW 05/26/24 11:20 - Today's Visit Information Type of service Follow-up Visit (Physician/LEAD SYSTEMS ANALYST ) Arrival Mode Ambulatory, Walker Patient Identification Verified (Name & Yes ) Height and Weight Body Mass Index (BMI) 49.8 BMI Classification Obese Vital Signs Temperature (97.8 F-99.1 F) 97.5 F L Temperature Source Temporal Pulse Rate (60-100) 91 Pulse Location Monitor Respiratory Rate (12-18) 18 Respiratory rate source Observation Oxygen Delivery Method Room Air Blood Pressure (90/60-120/80) 158/67 H Blood Pressure Mean (mm Hg) 97 Source Monitor Position Semi-Fowlers Blood Pressure Location Left Forearm History Since Last Visit- (Skip if this is Patient's initial visit) Have you changed medications since your No last visit? Any new allergies or adverse reactions No Had a fall/change in ADL's that may No increase risk of falls Signs or symptoms of abuse and/or No neglect since last visit Have you been in the hospital since your No last visit? Has dressing in place as prescribed Yes Has compression in place as prescribed Yes Has offloadiing in place as prescribed N/A Experienced any changes in pain level or No management Left Footwear Regular Shoe Right Footwear Regular Shoe Pain Scale: 0-10 Numeric Is Patient Pain Free? Yes - Nurse 1 - General Ulcer Measurement Start: 05/26/24 11:20 Freq: Status: Active Protocol: Activity Type Activity Date Activity User E-sign Co-sign Detail Recorded Client Recorded Date Recorded By Document 05/26/24 11:20 KW [id number] 05/26/24 11:30 KW 05/26/24 11:20 Wound Center Nurse 1 #10 Left Allen] -Current Size (cm) - Length 2.5 -Current Size (cm) - Width 3.5 -Current Size (cm) - Depth 0.1 -Total Square Cm 8.75 -Granulation Amt Large (67-100%) -Granulation Quality [place] -Texture (Adrianna-wound Skin Appearance) Assessed -Moisture (Adrianna-wound Skin Appearance) Assessed -Color (Adrianna-wound Skin Appearance) Assessed -Temperature (Adrianna-wound Skin No Abnormality Appearance) (Pt Warm) -Tenderness on Palpation (Adrianna-wound No Skin Appearance) -Ulcer Cleansing Rinsed/ Irrigated with Saline -Foul Odor after Cleansing No -Anesthetic Used 5% Lidocaine Gel Right Calf (cm) 52.5 Right Ankle (cm) 29.5 Left Ankle (cm) 51 Left Foot (cm) 30 - Nurse 2 - General Ulcer CM Notes Start: 05/26/24 11:20 Freq: Status: Active Protocol: Activity Type Activity Date Activity User E-sign Co-sign Detail Recorded Client Recorded Date Recorded By Document 05/26/24 11:40 GM [id number] 05/26/24 11:50 GM Edit Result 05/26/24 11:40 GM (1) [id number] 05/26/24 12:48 GM (1) #10 Left Allen] - Correct Procedure Yes => No - Procedure Performed Yes => No - Type of Procedure Debridement => - Clinical Debridement Epidermis / Dermis => - Tissue Removed Epidermis,Dermis => - Ulcer Cleansing Rinsed/Irrigated => Not Cleansed with Saline => - Debridement - Open, 1st 20sq cm Yes => 05/26/24 11:40 Wound Center Nurse 2 #10 Left Allen] -Time 11:44 -Correct Patient Yes -Correct Side, Site, Position Yes -Correct Procedure No -Procedure Performed No -Tunneling No -Undermining/Tunneling No -Circular Undermining No -Wound/Ulcer Outcome Not Healed -Ulcer Cleansing Not Cleansed -Foul Odor after Cleansing No -Bioengineered Tissue No -Bleeding Controlled with NA #2 Left LE -Time 11:49 -Correct Patient Yes -Correct Side, Site, Position Yes -Correct Procedure Yes -Procedure Performed Yes -Type of Procedure Debridement -Clinical Debridement Epidermis / Dermis -Tissue Removed Epidermis, Dermis -Post Debridement (cm) - Length 2.5 -Post Debridement (cm) - Width 2.5 -Post Debridement (cm) - Depth 0.1 -Total Square (Post) (cm) 6.25 -Area of Debridement (cm) - Length 2.5 -Area of Debridement (cm) - Width 2.5 -Total Square (Area) (cm) 6.25 -Tunneling No -Undermining/Tunneling No -Circular Undermining No -Wound/Ulcer Outcome Not Healed -Ulcer Cleansing Not Cleansed -Foul Odor after Cleansing No -Bioengineered Tissue No -Bleeding Controlled with NA -Debridement - Open, 1st 20sq cm Yes Pain Scale: 0-10 Numeric Is Patient Pain Free? Yes WC - Nurse 3 - General Ulcer D/C NN Start: 05/26/24 11:20 Freq: Status: Active Protocol: Activity Type Activity Date Activity User E-sign Co-sign Detail Recorded Client Recorded Date Recorded By Document 05/26/24 11:57 KW [id number] 05/26/24 11:58 KW 05/26/24 11:57 Wound Care Center Nurse 3 #10 Left Allen] -Primary Dressing Applied Promogran -Primary Dressing Covered/Secured with Dry Gauze & Roll Gauze, Secured with Tape -Promogran 1 #2 Left LE -Primary Dressing Covered/Secured with Dry Gauze Right -Tubular Bandage Double Layer -Size of Tubigrip Used Size F -Size F ($) 2 Left -Tubular Bandage Double Layer -Size of Tubigrip Used Size F -Size F ($) 2 Pain Scale: 0-10 Numeric Is Patient Pain Free? Yes WC - Visit Discharge Discharge Condition Stable Ambulatory Status Ambulatory, Walker Transportation Private Auto Medication Reconcilliation completed & No provided to patient/care provider Clinical Summary of Care Provided Yes Assessment/Plan Assessment/Plan (1) Non-pressure chronic ulcer left lower leg, limited to breakdown skin: CODE(S): L97.921 - Non-pressure chronic ulcer of unspecified part of left lower leg limited to breakdown of skin (2) Venous insufficiency: CODE(S): I87.2 - Venous insufficiency (chronic) (peripheral) (3) Edema of both lower extremities: CODE(S): R60.0 - Localized edema (4) Lymphedema: CODE(S): I89.0 - Lymphedema, not elsewhere classified (5) Essential hypertension: CODE(S): I10 - Essential (primary) hypertension (6) Morbid obesity with BMI of 45.0-49.9, adult: CODE(S): E66.01 - Morbid (severe) obesity due to excess calories; Z68.42 - Body mass index [BMI] 45.0-49.9, adult (7) Venous stasis 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: CODE(S): I83.023 - Varicose veins of left lower extremity with ulcer of ankle; L97.321 - Non-pressure 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 QUALIFIERS: Varicose vein presence: with varicose veins Qualified Code(s): I83.023 - Varicose veins of left lower extremity with ulcer of ankle; L97.321 - Non-pressure 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 (8) Debility: CODE(S): R53.81 - Other malaise (9) Osteoarthritis: CODE(S): M19.90 - Unspecified osteoarthritis, unspecified site QUALIFIERS: Osteoarthritis location: multiple joints Osteoarthritis type: primary Qualified Code(s): M15.9 - Polyosteoarthritis, unspecified (10) COPD (chronic obstructive pulmonary disease): CODE(S): J44.9 - Chronic obstructive pulmonary disease, unspecified QUALIFIERS: COPD type: unspecified COPD Qualified Code(s): J44.9 - Chronic obstructive pulmonary disease, unspecified (11) Chronic hypoxemic respiratory failure: CODE(S): J96.11 - Chronic respiratory failure with hypoxia (12) Pulmonary hypertension: CODE(S): I27.20 - Pulmonary hypertension, unspecified (13) Hypothyroidism: CODE(S): E03.9 - Hypothyroidism, unspecified QUALIFIERS: Hypothyroidism type: unspecified Qualified Code(s): E03.9 - Hypothyroidism, unspecified (14) Type 2 diabetes mellitus: CODE(S): E11.9 - Type 2 diabetes mellitus without complications QUALIFIERS: Diabetes mellitus fci insulin use: without fci use Diabetes mellitus complication status: with other specified complication Qualified Code(s): E11.69 - Type 2 diabetes mellitus with other specified complication (15) DOLORES (obstructive sleep apnea): CODE(S): G47.33 - Obstructive sleep apnea (adult) (pediatric) PLAN: Plan Evaluation and debridement performed today in clinic as annotated above. At home wound-care instructions: Edema will be treated with tubigrips in a double layer and have her continue to use lymphedema pumps. Will have her use Promogran and cover with a foam dressing to the left allen changed every other day for moderate drainage. She was instructed to keep dressings clean and dry. Will have her use lymphedema pumps for 60 minutes 2-3 times daily. Off-loading: The patient was instructed to avoid pressure and friction on the affected areas. Reposition every 2 hours at minimum. Avoid prolonged standing and/or dangling of legs. When seated, feet should be elevated at chest level. Frequent ambulation is encouraged. Diet: Patient encouraged to increase protein intake while taking caution to avoid high carbohydrate and/or sugar intake. Encouraged weight loss. Labs/cultures/imaging: Wound Culture of left allen ulcer last week showed MRSA and she was started on Bactrim DS. Also will give her mupirocin to apply to nose to clear colonization. Venous ultrasound showed incompetence of veins of left lower extremity and vascular plans on ablation. Encouraged her to get her CPAP mask to improve DOLORES and pulmonary HTN treatment compliance which is adding to her decompensated lymphedema. Follow-up: Will have her follow up in 1 week with Molly Beck PA-C to review vascular testing and ablation procedure and myself in 2 weeks. Return sooner or report to the emergency room should symptoms worsen, or new symptoms arise. Note: [employer] speech recognition gold leaf laborer software was used to create portions of this document. Sound-alike and misspelled words, as well as other gold leaf laborer errors may be contained in the documentation.
[2024-06-01 14:26] VITALS: BP 146/77; PULSE 74; RESP 20; TEMP 36.2; BMI 49.8
--- NOTE | 2024-06-01 14:50 | PCM.WC.PN ---
History of Present Illness Date of Service: 06/01/24 Chief Complaint: B/L LE ulcers, bilateral lower extremity swelling History of Wound: Liz is a pleasant 74 yo woman that presents to the wound center for bilateral lower extremity edema and blisters and drainage of her bilateral lower extremities. She has had increased edema the last 2 weeks and her legs started seeping a few days ago. She has been wearing her tubigrip compression and had been using the lymphedema pumps until they started seeping fluid. She tries to elevate her legs when she is sitting but is not always consistent with doing this. She has been wrapping her leg with gauze when it is seeping but otherwise has not been doing any regular dressings. Patient has been treated at the wound center in the past for similar wounds, most recently October 2023. She has also been seen in the vascular surgery clinic where she was evaluated her for BLE DVT and venous insufficiency. 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 GSV ablation has been done to her right lower leg. She has received lymphedema pumps that were ordered during her last treatment course and has been using these. Last venous study was 03/2022. Last A1C 01/2023 was 6.4%. Last TSH - 01/2022 Patient's medical history is also significant for CHF, COPD, T2DM, lymphedema. She has a CPAP but has not been using this due to needing a new mask. She states that a prescription was to be sent and she never received the mask. Her current mask has a hole in it. Subjective Subjective Liz typically follows with Dr. Rosa, I am seeing her today to discuss her venous reflux study results and recommended L GSV ablation. She has noticed increased weeping from her L lower leg this week, more open areas. Has noticed the dressings getting soaked through. No new redness, warmth. No N/V, F/C. Objective Data Objective Data Vital Signs: Vital Signs Temp Pulse Resp BP Pulse Ox O2 Del Method 97.2 F L 74 20 H 146/77 H 94 Room Air 06/01/24 14:26 06/01/24 14:26 06/01/24 14:26 06/01/24 14:26 05/21/24 00:47 05/26/24 11:20 Oxygen Delivery Method Room Air Weight: 309 lb Body Mass Index (BMI) 49.8 Charges/Coding Visit Charges Office Visits / Consults: 36798 OV L3 Est 20min Physical Exam Const alert, oriented x3 and no apparent distress General Appearance: cooperative and comfortable Nutritional Appearance: obese HEENT normocephalic and head/scalp atraumatic Lymph Lymphatic: lymphedema severe and pitting Resp normal respiratory effort Effort and Inspection: able to speak in complete sentences Cardio regular rate and regular rhythm Extremity General Extremity: edema bilateral lower extremity Details: severe (with skin changes associated with lymphedema, thickened nodular appearance from mid allen to ankle) Skin General Skin Exam: erythema, venous stasis and dermatitis Wounds: wounds noted Wound Narrative: as in clinical panel Psych mental status grossly normal, thought process normal, cooperative and affect normal Debridement Note Debridement Note No debridement was completed: No debridement was completed today Post-Debridement Measurements and Additional Note: Post-Debridement Measurements/Treatment WC - Nurse 1 - General Ulcer Assessment Start: 05/26/24 11:20 Freq: Status: Active Protocol: KELSEY Activity Type Activity Date Activity User E-sign Co-sign Detail Recorded Client Recorded Date Recorded By Document 05/26/24 11:20 KW [id number] 05/26/24 11:30 KW Document 06/01/24 14:26 DL [id number] 06/01/24 14:32 DL 05/26/24 06/01/24 11:20 14:26 WC - Today's Visit Information Type of service Follow-up Visit Follow-up Visit (Physician/PLASTER CASTER (Physician/PLASTER CASTER ) ) Arrival Mode Ambulatory, Ambulatory, Walker Walker Transfer Assistance None Patient Identification Verified (Name & Yes Yes ) Patient Requires Transmission-Based No Precautions Height and Weight Body Mass Index (BMI) 49.8 49.8 BMI Classification Obese Obese Vital Signs Temperature (97.8 F-99.1 F) 97.5 F L 97.2 F L Temperature Source Temporal Temporal Pulse Rate (60-100) 91 74 Pulse Location Monitor Monitor Respiratory Rate (12-18) 18 20 H Respiratory rate source Observation Observation Oxygen Delivery Method Room Air Blood Pressure (90/60-120/80) 158/67 H 146/77 H Blood Pressure Mean (mm Hg) 97 100 Source Monitor Monitor Position Semi-Fowlers Blood Pressure Location Left Forearm History Since Last Visit- (Skip if this is Patient's initial visit) Have you changed medications since your No No last visit? Any new allergies or adverse reactions No No Had a fall/change in ADL's that may No No increase risk of falls Signs or symptoms of abuse and/or No No neglect since last visit Have you been in the hospital since your No No last visit? Has dressing in place as prescribed Yes Yes Has compression in place as prescribed Yes Yes Has offloadiing in place as prescribed N/A N/A Experienced any changes in pain level or No No management Left Footwear Regular Shoe Right Footwear Regular Shoe Pain Scale: 0-10 Numeric Is Patient Pain Free? Yes Yes - Nurse 1 - General Ulcer Measurement Start: 05/26/24 11:20 Freq: Status: Active Protocol: Activity Type Activity Date Activity User E-sign Co-sign Detail Recorded Client Recorded Date Recorded By Document 05/26/24 11:20 KW [id number] 05/26/24 11:30 KW Document 06/01/24 14:26 DL [id number] 06/01/24 14:32 DL 05/26/24 06/01/24 11:20 14:26 Wound Center Nurse 1 #10 Left Allen Cluster -Current Size (cm) - Length 2.5 9 -Current Size (cm) - Width 3.5 10 -Current Size (cm) - Depth 0.1 0.1 -Total Square Cm 8.75 90 -Exudate Amt Medium -Exudate Type Serosanguineous -Wound Margin Distinct, Outline Attached -Granulation Amt Large (67-100%) Large (67-100%) -Granulation Quality [place] -Necrosis Amt None Present (0 %) -Structure Exposed N/A -Texture (Adrianna-wound Skin Appearance) Assessed Localized Edema ,Scarring -Moisture (Adrianna-wound Skin Appearance) Assessed Weeping -Color (Adrianna-wound Skin Appearance) Assessed Hemosiderin Staining -Temperature (Adrianna-wound Skin No Abnormality No Abnormality Appearance) (Pt Warm) (Pt Warm) -Tenderness on Palpation (Adrianna-wound No No Skin Appearance) -Ulcer Cleansing Rinsed/ Soap and Water Irrigated with Saline -Foul Odor after Cleansing No No -Anesthetic Used 5% Lidocaine 4% Lidocaine Gel Solution Right Calf (cm) 52.5 Right Ankle (cm) 29.5 Left Ankle (cm) 51 Left Foot (cm) 30 - Nurse 2 - General Ulcer CM Notes Start: 05/26/24 11:20 Freq: Status: Active Protocol: Activity Type Activity Date Activity User E-sign Co-sign Detail Recorded Client Recorded Date Recorded By Document 05/26/24 11:40 GM [id number] 05/26/24 11:50 GM Edit Result 05/26/24 11:40 GM (1) [id number] 05/26/24 12:48 GM Document 06/01/24 14:40 GM [id number] 06/01/24 14:46 GM (1) #10 Left Allen Cluster - Correct Procedure Yes => No - Procedure Performed Yes => No - Type of Procedure Debridement => - Clinical Debridement Epidermis / Dermis => - Tissue Removed Epidermis,Dermis => - Ulcer Cleansing Rinsed/Irrigated => Not Cleansed with Saline => - Debridement - Open, 1st 20sq cm Yes => 05/26/24 06/01/24 11:40 14:40 Wound Center Nurse 2 #2 Left LE -Time 11:49 -Correct Patient Yes -Correct Side, Site, Position Yes -Correct Procedure Yes -Procedure Performed Yes -Type of Procedure Debridement -Clinical Debridement Epidermis / Dermis -Tissue Removed Epidermis, Dermis -Post Debridement (cm) - Length 2.5 -Post Debridement (cm) - Width 2.5 -Post Debridement (cm) - Depth 0.1 -Total Square (Post) (cm) 6.25 -Area of Debridement (cm) - Length 2.5 -Area of Debridement (cm) - Width 2.5 -Total Square (Area) (cm) 6.25 -Tunneling No -Undermining/Tunneling No -Circular Undermining No -Wound/Ulcer Outcome Not Healed -Ulcer Cleansing Not Cleansed -Foul Odor after Cleansing No -Bioengineered Tissue No -Bleeding Controlled with NA -Debridement - Open, 1st 20sq cm Yes #10 Left Allen Cluster -Time 11:44 14:45 -Correct Patient Yes Yes -Correct Side, Site, Position Yes Yes -Correct Procedure No No -Procedure Performed No No -Tunneling No No -Undermining/Tunneling No No -Circular Undermining No No -Wound/Ulcer Outcome Not Healed Not Healed -Ulcer Cleansing Not Cleansed -Foul Odor after Cleansing No -Bioengineered Tissue No -Bleeding Controlled with NA Pain Scale: 0-10 Numeric Is Patient Pain Free? Yes Yes WC - Nurse 3 - General Ulcer D/C NN Start: 05/26/24 11:20 Freq: Status: Active Protocol: Activity Type Activity Date Activity User E-sign Co-sign Detail Recorded Client Recorded Date Recorded By Document 05/26/24 11:57 GENEVA [id number] 05/26/24 11:58 KW 05/26/24 11:57 Wound Care Center Nurse 3 #2 Left LE -Primary Dressing Covered/Secured with Dry Gauze #10 Left Allen Cluster -Primary Dressing Applied Promogran -Primary Dressing Covered/Secured with Dry Gauze & Roll Gauze, Secured with Tape -Promogran 1 Right -Tubular Bandage Double Layer -Size of Tubigrip Used Size F -Size F ($) 2 Left -Tubular Bandage Double Layer -Size of Tubigrip Used Size F -Size F ($) 2 Pain Scale: 0-10 Numeric Is Patient Pain Free? Yes WC - Visit Discharge Discharge Condition Stable Ambulatory Status Ambulatory, Walker Transportation Private Auto Medication Reconcilliation completed & No provided to patient/care provider Clinical Summary of Care Provided Yes Assessment/Plan Assessment/Plan (1) Non-pressure chronic ulcer left lower leg, limited to breakdown skin: CODE(S): L97.921 - Non-pressure chronic ulcer of unspecified part of left lower leg limited to breakdown of skin (2) Venous insufficiency: CODE(S): I87.2 - Venous insufficiency (chronic) (peripheral) (3) Edema of both lower extremities: CODE(S): R60.0 - Localized edema (4) Lymphedema: CODE(S): I89.0 - Lymphedema, not elsewhere classified (5) Morbid obesity with BMI of 45.0-49.9, adult: CODE(S): E66.01 - Morbid (severe) obesity due to excess calories; Z68.42 - Body mass index [BMI] 45.0-49.9, adult (6) Venous stasis 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: CODE(S): I83.023 - Varicose veins of left lower extremity with ulcer of ankle; L97.321 - Non-pressure 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 QUALIFIERS: Varicose vein presence: with varicose veins Qualified Code(s): I83.023 - Varicose veins of left lower extremity with ulcer of ankle; L97.321 - Non-pressure 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 (7) Debility: CODE(S): R53.81 - Other malaise (8) Osteoarthritis: CODE(S): M19.90 - Unspecified osteoarthritis, unspecified site QUALIFIERS: Osteoarthritis location: multiple joints Osteoarthritis type: primary Qualified Code(s): M15.9 - Polyosteoarthritis, unspecified (9) COPD (chronic obstructive pulmonary disease): CODE(S): J44.9 - Chronic obstructive pulmonary disease, unspecified QUALIFIERS: COPD type: unspecified COPD Qualified Code(s): J44.9 - Chronic obstructive pulmonary disease, unspecified (10) Chronic hypoxemic respiratory failure: CODE(S): J96.11 - Chronic respiratory failure with hypoxia (11) Pulmonary hypertension: CODE(S): I27.20 - Pulmonary hypertension, unspecified (12) Hypothyroidism: CODE(S): E03.9 - Hypothyroidism, unspecified QUALIFIERS: Hypothyroidism type: unspecified Qualified Code(s): E03.9 - Hypothyroidism, unspecified (13) Type 2 diabetes mellitus: CODE(S): E11.9 - Type 2 diabetes mellitus without complications QUALIFIERS: Diabetes mellitus long term care social worker insulin use: without long term care social worker use Diabetes mellitus complication status: with other specified complication Qualified Code(s): E11.69 - Type 2 diabetes mellitus with other specified complication (14) DOLORES (obstructive sleep apnea): CODE(S): G47.33 - Obstructive sleep apnea (adult) (pediatric) PLAN: Plan Will continue tubigrips in a double layer and have her continue to use lymphedema pumps for 60 minutes 2-3 times daily for management of her edema. She is also encouraged to elevate her legs as often as possible. She has significant serous weeping today. Will change to Aquacel Extra and apply super absorber or ABD pads overtop followed by gauze wrap. I would advise changing twice a day if possible to manage drainage and reduce potential maceration. Patient encouraged to increase protein intake while taking caution to avoid high carbohydrate and/or sugar intake. Encouraged weight loss. As noted, she had recent venous reflux study which revealed L GSV reflux throughout, ASV calf incompetence, and calf cylinder worker incompetence. I recommend chemical adhesive saphenous vein ablation. We discussed procedure details including risks, benefits, and recovery. She previously had R saphenous chemical adhesive ablation in January and this has been quite effective at preventing recurrent weeping/skin breakdown in the R calf for her so far. She does wish to proceed with L saphenous vein ablation, she is scheduled for 07/12/23. She will follow-up with Dr. Rosa next week.
[2024-06-09 10:26] VITALS: RESP 18; BMI 49.8
--- NOTE | 2024-06-09 12:50 | PCM.WC.PN ---
History of Present Illness Date of Service: 06/09/24 Chief Complaint: B/L LE ulcers, bilateral lower extremity swelling History of Wound: Liz is a pleasant 74 yo woman that presents to the wound center for bilateral lower extremity edema and blisters and drainage of her bilateral lower extremities. She has had increased edema the last 2 weeks and her legs started seeping a few days ago. She has been wearing her tubigrip compression and had been using the lymphedema pumps until they started seeping fluid. She tries to elevate her legs when she is sitting but is not always consistent with doing this. She has been wrapping her leg with gauze when it is seeping but otherwise has not been doing any regular dressings. Patient has been treated at the wound center in the past for similar wounds, most recently October 2023. She has also been seen in the vascular surgery clinic where she was evaluated her for BLE DVT and venous insufficiency. 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 GSV ablation has been done to her right lower leg. She has received lymphedema pumps that were ordered during her last treatment course and has been using these. Last venous study was 03/2022. Last A1C 01/2023 was 6.4%. Last TSH - 01/2022 Patient's medical history is also significant for CHF, COPD, T2DM, lymphedema. She has a CPAP but has not been using this due to needing a new mask. She states that a prescription was to be sent and she never received the mask. Her current mask has a hole in it. Subjective Subjective Liz returns today for treatment of edema to bilateral lower legs. She tolerated Aquacel and ABD and tubigrip compression and lymphedema pumps. The left allen and lateral leg is having increased drainage. Venous ultrasound showed incompetence of left lower extremity veins and she has been contacted by vascular to have ablation and tentatively scheduled to have procedure 07/12/24. She has been elevating her legs and using lymphedema pumps as directed. She denies fever, chills. Objective Data Objective Data Vital Signs: Vital Signs Temp Pulse Resp BP Pulse Ox O2 Del Method 97.2 F L 74 18 146/77 H 94 Room Air 06/01/24 14:26 06/01/24 14:26 06/09/24 10:26 06/01/24 14:26 05/21/24 00:47 06/09/24 10:26 Oxygen Delivery Method Room Air Weight: 140.16 kg Body Mass Index (BMI) 49.8 Physical Exam Const alert, oriented x3 and no apparent distress General Appearance: cooperative and comfortable Nutritional Appearance: obese HEENT normocephalic and head/scalp atraumatic Lymph Lymphatic: lymphedema severe and pitting Resp normal respiratory effort Effort and Inspection: able to speak in complete sentences Cardio regular rate and regular rhythm Extremity General Extremity: edema bilateral lower extremity Details: severe (with skin changes associated with lymphedema, thickened nodular appearance from mid allen to ankle) Skin General Skin Exam: erythema, venous stasis and dermatitis Wounds: wounds noted Wound Narrative: as in clinical panel, mildly increased erythema and moderate serous drainage from lateral lower leg, nodular appearance of skin associated with lymphedema Psych mental status grossly normal, thought process normal, cooperative and affect normal Debridement Note Debridement Note Wound debrided: left allen Laterality: Left Type of Debridement: Excisional debridement Anesthesia Used: 4% Lidocaine Solution and 5% Lidocaine Gel Depth: Down to and including healthy tissue and in the subcutaneous layer Percentage of wound debrided: 100 Instrument Used: 3mm curette Tissue Removed: Yellow slough, devitalized tissue Severity: Fat Layer Exposed Amount of bleeding with debridement: None Bleeding Controlled with: Pressure Patient tolerated procedure: Patient tolerated procedure well Post-Debridement Measurements and Additional Note: Post-Debridement Measurements/Treatment - Nurse 1 - General Ulcer Assessment Start: 05/26/24 11:20 Freq: Status: Active Protocol: [email or web address].[email or web address] Activity Type Activity Date Activity User E-sign Co-sign Detail Recorded Client Recorded Date Recorded By Document 05/26/24 11:20 KW [id number] 05/26/24 11:30 KW Document 06/01/24 14:26 DL [id number] 06/01/24 14:32 DL Document 06/09/24 10:26 KW [id number] 06/09/24 10:37 KW 05/26/24 06/01/24 06/09/24 11:20 14:26 10:26 - Today's Visit Information Type of service Follow-up Visit Follow-up Visit Follow-up Visit (Physician/MAIL SUPERINTENDENT (Physician/MAIL SUPERINTENDENT (Physician/MAIL SUPERINTENDENT ) ) ) Arrival Mode Ambulatory, Ambulatory, Ambulatory Walker Walker Transfer Assistance None Accompanied by Patient Identification Verified (Name & Yes Yes Yes ) Patient Requires Transmission-Based No Precautions Height and Weight Body Mass Index (BMI) 49.8 49.8 49.8 BMI Classification Obese Obese Obese Vital Signs Temperature (97.8 F-99.1 F) 97.5 F L 97.2 F L Temperature Source Temporal Temporal Temporal Pulse Rate (60-100) 91 74 Pulse Location Monitor Monitor Monitor Respiratory Rate (12-18) 18 20 H 18 Respiratory rate source Observation Observation Observation Oxygen Delivery Method Room Air Room Air Blood Pressure (90/60-120/80) 158/67 H 146/77 H Blood Pressure Mean (mm Hg) 97 100 Source Monitor Monitor Monitor Position Semi-Fowlers Semi-Fowlers Blood Pressure Location Left Forearm Left Arm History Since Last Visit- (Skip if this is Patient's initial visit) Have you changed medications since your No No No last visit? Any new allergies or adverse reactions No No No Had a fall/change in ADL's that may No No No increase risk of falls Signs or symptoms of abuse and/or No No No neglect since last visit Have you been in the hospital since your No No No last visit? Has dressing in place as prescribed Yes Yes Yes Has compression in place as prescribed Yes Yes Yes Has offloadiing in place as prescribed N/A N/A N/A Experienced any changes in pain level or No No No management Left Footwear Regular Shoe Regular Shoe Right Footwear Regular Shoe Regular Shoe Pain Scale: 0-10 Numeric Is Patient Pain Free? Yes Yes Yes WC - Nurse 1 - General Ulcer Measurement Start: 05/26/24 11:20 Freq: Status: Active Protocol: Activity Type Activity Date Activity User E-sign Co-sign Detail Recorded Client Recorded Date Recorded By Document 05/26/24 11:20 KW [id number] 05/26/24 11:30 KW Document 06/01/24 14:26 DL [id number] 06/01/24 14:32 DL Document 06/09/24 10:26 KW [id number] 06/09/24 10:37 KW 05/26/24 06/01/24 06/09/24 11:20 14:26 10:26 Wound Center Nurse 1 #10 Left Allen Cluster -Current Size (cm) - Length 2.5 9 14 -Current Size (cm) - Width 3.5 10 15 -Current Size (cm) - Depth 0.1 0.1 0.1 -Total Square Cm 8.75 90 210 -Date of Last Picture (Recall this 06/09/24 field) -Exudate Amt Medium Large -Exudate Type Serosanguineous Serosanguineous -Wound Margin Distinct, Distinct, Outline Outline Attached Attached -Granulation Amt Large (67-100%) Large (67-100%) Large (67-100%) -Granulation Quality [place] Red -Necrosis Amt None Present (0 %) -Structure Exposed N/A -Texture (Adrianna-wound Skin Appearance) Assessed Localized Edema Assessed ,Scarring -Moisture (Adrianna-wound Skin Appearance) Assessed Weeping Assessed, Weeping -Color (Adrianna-wound Skin Appearance) Assessed Hemosiderin Assessed, Staining Erythema -Temperature (Adrianna-wound Skin No Abnormality No Abnormality No Abnormality Appearance) (Pt Warm) (Pt Warm) (Pt Warm) -Tenderness on Palpation (Adrianna-wound No No No Skin Appearance) -Ulcer Cleansing Rinsed/ Soap and Water Rinsed/ Irrigated with Irrigated with Saline Saline -Foul Odor after Cleansing No No No -Anesthetic Used 5% Lidocaine 4% Lidocaine 4% Lidocaine Gel Solution Solution Right Calf (cm) 52.5 54.5 Right Ankle (cm) 29.5 30 Left Calf (cm) 53.3 Left Ankle (cm) 51 28.5 Left Foot (cm) 30 WC - Nurse 2 - General Ulcer CM Notes Start: 05/26/24 11:20 Freq: Status: Active Protocol: Activity Type Activity Date Activity User E-sign Co-sign Detail Recorded Client Recorded Date Recorded By Document 05/26/24 11:40 GM [id number] 05/26/24 11:50 GM Edit Result 05/26/24 11:40 GM (1) [id number] 05/26/24 12:48 GM Document 06/01/24 14:40 GM [id number] 06/01/24 14:46 GM Document 06/09/24 10:42 GM [id number] 06/09/24 10:49 GM (1) #10 Left Allen Cluster - Correct Procedure Yes => No - Procedure Performed Yes => No - Type of Procedure Debridement => - Clinical Debridement Epidermis / Dermis => - Tissue Removed Epidermis,Dermis => - Ulcer Cleansing Rinsed/Irrigated => Not Cleansed with Saline => - Debridement - Open, 1st 20sq cm Yes => 05/26/24 06/01/24 06/09/24 11:40 14:40 10:42 Wound Center Nurse 2 #2 Left LE -Time 11:49 -Correct Patient Yes -Correct Side, Site, Position Yes -Correct Procedure Yes -Procedure Performed Yes -Type of Procedure Debridement -Clinical Debridement Epidermis / Dermis -Tissue Removed Epidermis, Dermis -Post Debridement (cm) - Length 2.5 -Post Debridement (cm) - Width 2.5 -Post Debridement (cm) - Depth 0.1 -Total Square (Post) (cm) 6.25 -Area of Debridement (cm) - Length 2.5 -Area of Debridement (cm) - Width 2.5 -Total Square (Area) (cm) 6.25 -Tunneling No -Undermining/Tunneling No -Circular Undermining No -Wound/Ulcer Outcome Not Healed -Ulcer Cleansing Not Cleansed -Foul Odor after Cleansing No -Bioengineered Tissue No -Bleeding Controlled with NA -Debridement - Open, 20sq cm Yes #10 Left Allen Cluster -Time 11:44 14:45 10:44 -Correct Patient Yes Yes Yes -Correct Side, Site, Position Yes Yes Yes -Correct Procedure No No Yes -Procedure Performed No No Yes -Type of Procedure Debridement -Clinical Debridement Subcutaneous -Tissue Removed Subcutaneous -Post Debridement (cm) - Length 2.0 -Post Debridement (cm) - Width 2.0 -Post Debridement (cm) - Depth 0.1 -Total Square (Post) (cm) 4.00 -Area of Debridement (cm) - Length 2.0 -Area of Debridement (cm) - Width 2.0 -Total Square (Area) (cm) 4.00 -Tunneling No No No -Undermining/Tunneling No No No -Circular Undermining No No No -Wound/Ulcer Outcome Not Healed Not Healed Not Healed -Ulcer Cleansing Not Cleansed Rinsed/ Irrigated with Saline -Foul Odor after Cleansing No No -Bioengineered Tissue No No -Bleeding Controlled with NA Pressure -Treatment Response Procedure Tolerated Well -Debridement - Subq, 1st 20sq cm Yes Pain Scale: 0-10 Numeric Is Patient Pain Free? Yes Yes Yes WC - Nurse 3 - General Ulcer D/C NN Start: 05/26/24 11:20 Freq: Status: Active Protocol: Activity Type Activity Date Activity User E-sign Co-sign Detail Recorded Client Recorded Date Recorded By Document 05/26/24 11:57 KW [id number] 05/26/24 11:58 KW Document 06/01/24 14:52 GM [id number] 06/01/24 14:55 GM Document 06/09/24 12:35 RB [id number] 06/09/24 12:36 RB 05/26/24 06/01/24 06/09/24 11:57 14:52 12:35 Wound Care Center Nurse 3 #2 Left LE -Primary Dressing Covered/Secured with Dry Gauze #10 Left Allen Cluster -Ulcer Cleansing Not Cleansed Wound Cleanser -Foul Odor after Cleansing No -Primary Dressing Applied Promogran Aquacel Extra, Aquacel Extra, Optilok 6.5x10, Optilok 6.5x10 Other -Other Dressing Abd pads x2 -Primary Dressing Covered/Secured with Dry Gauze & Dry Gauze & Roll Gauze, Roll Gauze, Secured with Secured with Tape Tape -Aquacel Extra 1 1 -Optilok 6.5x10 2 3 -Promogran 1 Right -Tubular Bandage Double Layer -Size of Tubigrip Used Size F -Size F ($) 2 Left -Tubular Bandage Double Layer -Size of Tubigrip Used Size F -Size F ($) 2 BILAT LE -Lotion applied to leg before Yes compression wrap -Multi-Layered Wrap Application Unna Boot - Bilateral ($) -Tubular Bandage Double Layer -Size of Tubigrip Used Size F -Size F ($) 4 Treatment Response Procedure Tolerated Well Pain Scale: 0-10 Numeric Is Patient Pain Free? Yes Yes Yes WC - Visit Discharge Discharge Condition Stable Stable Stable Ambulatory Status Ambulatory, Ambulatory Ambulatory, Walker Walker Transportation Private Auto Private Auto Private Auto Medication Reconcilliation completed & No No provided to patient/care provider Clinical Summary of Care Provided Yes Yes Assessment/Plan Assessment/Plan (1) Non-pressure chronic ulcer left lower leg, limited to breakdown skin: CODE(S): L97.921 - Non-pressure chronic ulcer of unspecified part of left lower leg limited to breakdown of skin (2) Venous insufficiency: CODE(S): I87.2 - Venous insufficiency (chronic) (peripheral) (3) Edema of both lower extremities: CODE(S): R60.0 - Localized edema (4) Lymphedema: CODE(S): I89.0 - Lymphedema, not elsewhere classified (5) Essential hypertension: CODE(S): I10 - Essential (primary) hypertension (6) Morbid obesity with BMI of 45.0-49.9, adult: CODE(S): E66.01 - Morbid (severe) obesity due to excess calories; Z68.42 - Body mass index [BMI] 45.0-49.9, adult (7) Venous stasis 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: CODE(S): I83.023 - Varicose veins of left lower extremity with ulcer of ankle; L97.321 - Non-pressure 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 QUALIFIERS: Varicose vein presence: with varicose veins Qualified Code(s): I83.023 - Varicose veins of left lower extremity with ulcer of ankle; L97.321 - Non-pressure 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 (8) Debility: CODE(S): R53.81 - Other malaise (9) Osteoarthritis: CODE(S): M19.90 - Unspecified osteoarthritis, unspecified site QUALIFIERS: Osteoarthritis location: multiple joints Osteoarthritis type: primary Qualified Code(s): M15.9 - Polyosteoarthritis, unspecified (10) COPD (chronic obstructive pulmonary disease): CODE(S): J44.9 - Chronic obstructive pulmonary disease, unspecified QUALIFIERS: COPD type: unspecified COPD Qualified Code(s): J44.9 - Chronic obstructive pulmonary disease, unspecified (11) Chronic hypoxemic respiratory failure: CODE(S): J96.11 - Chronic respiratory failure with hypoxia (12) Pulmonary hypertension: CODE(S): I27.20 - Pulmonary hypertension, unspecified (13) Hypothyroidism: CODE(S): E03.9 - Hypothyroidism, unspecified QUALIFIERS: Hypothyroidism type: unspecified Qualified Code(s): E03.9 - Hypothyroidism, unspecified (14) Type 2 diabetes mellitus: CODE(S): E11.9 - Type 2 diabetes mellitus without complications QUALIFIERS: Diabetes mellitus complication status: with other specified complication Diabetes mellitus group home insulin use: without group home use Qualified Code(s): E11.69 - Type 2 diabetes mellitus with other specified complication (15) DOLORES (obstructive sleep apnea): CODE(S): G47.33 - Obstructive sleep apnea (adult) (pediatric) PLAN: Plan Evaluation and debridement performed today in clinic as annotated above. At home wound-care instructions: Will treat her legs with UNNA boots bilaterally for edema. Will dress left allen and lateral leg with super absorber dressings and Aquacel Extra under UNNA boot. She was instructed to keep dressings clean and dry. Will have her use lymphedema pumps for 60 minutes 2-3 times daily. She was advised to call if drainage is heavy and coming through UNNA boot. Off-loading: The patient was instructed to avoid pressure and friction on the affected areas. Reposition every 2 hours at minimum. Avoid prolonged standing and/or dangling of legs. When seated, feet should be elevated at chest level. Frequent ambulation is encouraged. Diet: Patient encouraged to increase protein intake while taking caution to avoid high carbohydrate and/or sugar intake. Encouraged weight loss. Labs/cultures/imaging: Wound Culture of left allen ulcer taken today. Started her on Bactrim DS. Will adjust antibiotic based on results. Venous ultrasound showed incompetence of veins of left lower extremity and vascular plans on ablation in June 2024. Encouraged her to get her CPAP mask to improve DOLORES and pulmonary HTN treatment compliance which is adding to her decompensated lymphedema. Follow-up: Will have her follow up in 1 week. Return sooner or report to the emergency room should symptoms worsen, or new symptoms arise. Note: [employer] speech recognition tin container straightener software was used to create portions of this document. Sound-alike and misspelled words, as well as other tin container straightener errors may be contained in the documentation.
--- NOTE | 2024-06-12 11:56 | WC ---
PHOTO 06/09/24 LEFT [facility]AMS
[2024-06-16 10:47] VITALS: BP 133/59; PULSE 81; RESP 18; TEMP 35.8; BMI 49.8
--- NOTE | 2024-06-16 14:40 | PN.PCM_ITS ---
History of Present Illness Date of Service: 06/16/24 Chief Complaint: B/L LE ulcers, bilateral lower extremity swelling History of Wound: Liz is a pleasant 74 yo woman that presents to the wound center for bilateral lower extremity edema and blisters and drainage of her bilateral lower extremities. She has had increased edema the last 2 weeks and her legs started seeping a few days ago. She has been wearing her tubigrip compression and had been using the lymphedema pumps until they started seeping fluid. She tries to elevate her legs when she is sitting but is not always consistent with doing this. She has been wrapping her leg with gauze when it is seeping but otherwise has not been doing any regular dressings. Patient has been treated at the wound center in the past for similar wounds, most recently October 2023. She has also been seen in the vascular surgery clinic where she was evaluated her for BLE DVT and venous insufficiency. 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 GSV ablation has been done to her right lower leg. She has received lymphedema pumps that were ordered during her last treatment course and has been using these. Last venous study was 03/2022. Last A1C 01/2023 was 6.4%. Last TSH - 01/2022 Patient's medical history is also significant for CHF, COPD, T2DM, lymphedema. She has a CPAP but has not been using this due to needing a new mask. She states that a prescription was to be sent and she never received the mask. Her current mask has a hole in it. Subjective Subjective Liz returns today for treatment of edema to bilateral lower legs. She tolerated UNNA boots and lymphedema pumps. The left allen is healed and lateral leg is having decreased drainage. Venous ultrasound showed incompetence of left lower extremity veins and she has been contacted by vascular to have ablation and tentatively scheduled to have procedure 07/12/24. She has been elevating her legs and using lymphedema pumps as directed. She denies fever, chills. Objective Data Objective Data Vital Signs: Vital Signs Temp Pulse Resp BP Pulse Ox O2 Del Method 96.4 F L 81 18 133/59 H 94 Room Air 06/16/24 10:47 06/16/24 10:47 06/16/24 10:47 06/16/24 10:47 05/21/24 00:47 06/09/24 10:26 Oxygen Delivery Method Room Air Weight: 140.16 kg Body Mass Index (BMI) 49.8 Lab / Micro Data Micro: Microbiology 06/09/24 10:47 Wound - Leg, Left Gram Stain - Final 06/09/24 10:47 Wound - Leg, Left Wound Culture - Final Pseudomonas aeruginosa Meth. resistant Staph. aureus 06/09/24 10:47 Wound - Leg, Left Anaerobic Culture - Final No anaerobic bacteria isolated. Physical Exam Const alert, oriented x3 and no apparent distress General Appearance: cooperative and comfortable Nutritional Appearance: obese HEENT normocephalic and head/scalp atraumatic Lymph Lymphatic: lymphedema severe and pitting Resp normal respiratory effort Effort and Inspection: able to speak in complete sentences Cardio regular rate and regular rhythm Extremity General Extremity: edema bilateral lower extremity Details: severe (with skin changes associated with lymphedema, thickened nodular appearance from mid allen to ankle) Skin General Skin Exam: erythema, venous stasis and dermatitis Wounds: wounds noted Wound Narrative: as in clinical panel, mildly increased erythema and moderate serous drainage from lateral lower leg, nodular appearance of skin associated with lymphedema Psych mental status grossly normal, thought process normal, cooperative and affect normal Debridement Note Debridement Note Laterality: Left No debridement was completed: No debridement was completed today (no slough present) Post-Debridement Measurements and Additional Note: Post-Debridement Measurements/Treatment - Nurse 1 - General Ulcer Assessment Start: 05/26/24 11:20 Freq: Status: Active Protocol: JESÚS.JULIAN Activity Type Activity Date Activity User E-sign Co-sign Detail Recorded Client Recorded Date Recorded By Document 05/26/24 11:20 KW [id number] 05/26/24 11:30 KW Document 06/01/24 14:26 DL [id number] 06/01/24 14:32 DL Document 06/09/24 10:26 KW [id number] 06/09/24 10:37 KW Document 06/16/24 10:47 RB [id number] 06/16/24 11:00 RB 05/26/24 06/01/24 06/09/24 11:20 14:26 10:26 - Today's Visit Information Type of service Follow-up Visit Follow-up Visit Follow-up Visit (Physician/HIGH DENSITY FINISHING OPERATOR (Physician/HIGH DENSITY FINISHING OPERATOR (Physician/HIGH DENSITY FINISHING OPERATOR ) ) ) Arrival Mode Ambulatory, Ambulatory, Ambulatory Walker Walker Transfer Assistance None Accompanied by Patient Identification Verified (Name & Yes Yes Yes ) Patient Requires Transmission-Based No Precautions Height and Weight Body Mass Index (BMI) 49.8 49.8 49.8 BMI Classification Obese Obese Obese Vital Signs Temperature (97.8 F-99.1 F) 97.5 F L 97.2 F L Temperature Source Temporal Temporal Temporal Pulse Rate (60-100) 91 74 Pulse Location Monitor Monitor Monitor Respiratory Rate (12-18) 18 20 H 18 Respiratory rate source Observation Observation Observation Oxygen Delivery Method Room Air Room Air Blood Pressure (90/60-120/80) 158/67 H 146/77 H Blood Pressure Mean (mm Hg) 97 100 Source Monitor Monitor Monitor Position Semi-Fowlers Semi-Fowlers Blood Pressure Location Left Forearm Left Arm History Since Last Visit- (Skip if this is Patient's initial visit) Have you changed medications since your No No No last visit? Any new allergies or adverse reactions No No No Had a fall/change in ADL's that may No No No increase risk of falls Signs or symptoms of abuse and/or No No No neglect since last visit Have you been in the hospital since your No No No last visit? Has dressing in place as prescribed Yes Yes Yes Has compression in place as prescribed Yes Yes Yes Has offloadiing in place as prescribed N/A N/A N/A Experienced any changes in pain level or No No No management Left Footwear Regular Shoe Regular Shoe Right Footwear Regular Shoe Regular Shoe Pain Scale: 0-10 Numeric Is Patient Pain Free? Yes Yes Yes 06/16/24 10:47 WC - Today's Visit Information Type of service Follow-up Visit (Physician/HIGH DENSITY FINISHING OPERATOR ) Arrival Mode Ambulatory, Walker Transfer Assistance None Accompanied by Patient Identification Verified (Name & Yes ) Patient Requires Transmission-Based No Precautions Height and Weight Body Mass Index (BMI) 49.8 BMI Classification Obese Vital Signs Temperature (97.8 F-99.1 F) 96.4 F L Temperature Source Temporal Pulse Rate (60-100) 81 Pulse Location Monitor Respiratory Rate (12-18) 18 Respiratory rate source Observation Oxygen Delivery Method Blood Pressure (90/60-120/80) 133/59 H Blood Pressure Mean (mm Hg) 83 Source Monitor Position Semi-Fowlers Blood Pressure Location Left Arm History Since Last Visit- (Skip if this is Patient's initial visit) Have you changed medications since your No last visit? Any new allergies or adverse reactions No Had a fall/change in ADL's that may No increase risk of falls Signs or symptoms of abuse and/or No neglect since last visit Have you been in the hospital since your No last visit? Has dressing in place as prescribed Yes Has compression in place as prescribed Yes Has offloadiing in place as prescribed No Experienced any changes in pain level or No management Left Footwear Right Footwear Pain Scale: 0-10 Numeric Is Patient Pain Free? Yes WC - Nurse 1 - General Ulcer Measurement Start: 05/26/24 11:20 Freq: Status: Active Protocol: Activity Type Activity Date Activity User E-sign Co-sign Detail Recorded Client Recorded Date Recorded By Document 05/26/24 11:20 KW [id number] 05/26/24 11:30 KW Document 06/01/24 14:26 DL [id number] 06/01/24 14:32 DL Document 06/09/24 10:26 KW [id number] 06/09/24 10:37 KW Document 06/16/24 10:47 RB [id number] 06/16/24 11:00 RB 05/26/24 06/01/24 06/09/24 11:20 14:26 10:26 Wound Center Nurse 1 #10 Left Allen Cluster -Combined with other wound -Current Size (cm) - Length 2.5 9 14 -Current Size (cm) - Width 3.5 10 15 -Current Size (cm) - Depth 0.1 0.1 0.1 -Total Square Cm 8.75 90 210 -Date of Last Picture (Recall this 06/09/24 field) -Tunneling -Undermining/Tunneling -Circular Undermining -Exudate Amt Medium Large -Exudate Type Serosanguineous Serosanguineous -Wound Margin Distinct, Distinct, Outline Outline Attached Attached -Granulation Amt Large (67-100%) Large (67-100%) Large (67-100%) -Granulation Quality [place] Red -Slough/Fibrin -Necrosis Amt None Present (0 %) -Necrotic Tissue Type -Structure Exposed N/A -Texture (Adrianna-wound Skin Appearance) Assessed Localized Edema Assessed ,Scarring -Moisture (Adrianna-wound Skin Appearance) Assessed Weeping Assessed, Weeping -Color (Adrianna-wound Skin Appearance) Assessed Hemosiderin Assessed, Staining Erythema -Temperature (Adrianna-wound Skin No Abnormality No Abnormality No Abnormality Appearance) (Pt Warm) (Pt Warm) (Pt Warm) -Tenderness on Palpation (Adrianna-wound No No No Skin Appearance) -Ulcer Cleansing Rinsed/ Soap and Water Rinsed/ Irrigated with Irrigated with Saline Saline -Foul Odor after Cleansing No No No -Anesthetic Used 5% Lidocaine 4% Lidocaine 4% Lidocaine Gel Solution Solution Lower Limb Edema Present Right Calf (cm) 52.5 54.5 Right Ankle (cm) 29.5 30 Left Calf (cm) 53.3 Left Ankle (cm) 51 28.5 Left Foot (cm) 30 06/16/24 10:47 Wound Center Nurse 1 #10 Left Allen Cluster -Combined with other wound No -Current Size (cm) - Length 14 -Current Size (cm) - Width 8 -Current Size (cm) - Depth 0.1 -Total Square Cm 112 -Date of Last Picture (Recall this field) -Tunneling No -Undermining/Tunneling No -Circular Undermining No -Exudate Amt Large -Exudate Type Serosanguineous -Wound Margin Distinct, Outline Attached -Granulation Amt Medium (34-66%) -Granulation Quality [place] -Slough/Fibrin Yes -Necrosis Amt Medium (34-66%) -Necrotic Tissue Type Adherent Slough -Structure Exposed N/A -Texture (Adrianna-wound Skin Appearance) Assessed -Moisture (Adrianna-wound Skin Appearance) Maceration -Color (Adrianna-wound Skin Appearance) Assessed -Temperature (Adrianna-wound Skin No Abnormality Appearance) (Pt Warm) -Tenderness on Palpation (Adrianna-wound No Skin Appearance) -Ulcer Cleansing Wound Cleanser -Foul Odor after Cleansing No -Anesthetic Used 5% Lidocaine Gel Lower Limb Edema Present Yes Right Calf (cm) 52 Right Ankle (cm) 29 Left Calf (cm) 49.5 Left Ankle (cm) 29.8 Left Foot (cm) WC - Nurse 2 - General Ulcer CM Notes Start: 05/26/24 11:20 Freq: Status: Active Protocol: Activity Type Activity Date Activity User E-sign Co-sign Detail Recorded Client Recorded Date Recorded By Document 05/26/24 11:40 GM [id number] 05/26/24 11:50 GM Edit Result 05/26/24 11:40 GM (1) [id number] 05/26/24 12:48 GM Document 06/01/24 14:40 GM [id number] 06/01/24 14:46 GM Document 06/09/24 10:42 GM [id number] 06/09/24 10:49 GM Document 06/16/24 11:43 GM [id number] 06/16/24 11:50 GM (1) #10 Left Allen Cluster - Correct Procedure Yes => No - Procedure Performed Yes => No - Type of Procedure Debridement => - Clinical Debridement Epidermis / Dermis => - Tissue Removed Epidermis,Dermis => - Ulcer Cleansing Rinsed/Irrigated => Not Cleansed with Saline => - Debridement - Open, 1st 20sq cm Yes => 05/26/24 06/01/24 06/09/24 11:40 14:40 10:42 Wound Center Nurse 2 #2 Left LE -Time 11:49 -Correct Patient Yes -Correct Side, Site, Position Yes -Correct Procedure Yes -Procedure Performed Yes -Type of Procedure Debridement -Clinical Debridement Epidermis / Dermis -Tissue Removed Epidermis, Dermis -Post Debridement (cm) - Length 2.5 -Post Debridement (cm) - Width 2.5 -Post Debridement (cm) - Depth 0.1 -Total Square (Post) (cm) 6.25 -Area of Debridement (cm) - Length 2.5 -Area of Debridement (cm) - Width 2.5 -Total Square (Area) (cm) 6.25 -Tunneling No -Undermining/Tunneling No -Circular Undermining No -Wound/Ulcer Outcome Not Healed -Ulcer Cleansing Not Cleansed -Foul Odor after Cleansing No -Bioengineered Tissue No -Bleeding Controlled with NA -Debridement - Open, 1st 20sq cm Yes #10 Left Allen Cluster -Time 11:44 14:45 10:44 -Correct Patient Yes Yes Yes -Correct Side, Site, Position Yes Yes Yes -Correct Procedure No No Yes -Procedure Performed No No Yes -Type of Procedure Debridement -Clinical Debridement Subcutaneous -Tissue Removed Subcutaneous -Post Debridement (cm) - Length 2.0 -Post Debridement (cm) - Width 2.0 -Post Debridement (cm) - Depth 0.1 -Total Square (Post) (cm) 4.00 -Area of Debridement (cm) - Length 2.0 -Area of Debridement (cm) - Width 2.0 -Total Square (Area) (cm) 4.00 -Tunneling No No No -Undermining/Tunneling No No No -Circular Undermining No No No -Wound/Ulcer Outcome Not Healed Not Healed Not Healed -Ulcer Cleansing Not Cleansed Rinsed/ Irrigated with Saline -Foul Odor after Cleansing No No -Bioengineered Tissue No No -Bleeding Controlled with NA Pressure -Treatment Response Procedure Tolerated Well -Offloading -Debridement - Subq, 1st 20sq cm Yes Pain Scale: 0-10 Numeric Is Patient Pain Free? Yes Yes Yes 06/16/24 11:43 Wound Center Nurse 2 #2 Left LE -Time -Correct Patient -Correct Side, Site, Position -Correct Procedure -Procedure Performed -Type of Procedure -Clinical Debridement -Tissue Removed -Post Debridement (cm) - Length -Post Debridement (cm) - Width -Post Debridement (cm) - Depth -Total Square (Post) (cm) -Area of Debridement (cm) - Length -Area of Debridement (cm) - Width -Total Square (Area) (cm) -Tunneling -Undermining/Tunneling -Circular Undermining -Wound/Ulcer Outcome -Ulcer Cleansing -Foul Odor after Cleansing -Bioengineered Tissue -Bleeding Controlled with -Debridement - Open, 1st 20sq cm #10 Left Allen Cluster -Time 11:47 -Correct Patient Yes -Correct Side, Site, Position Yes -Correct Procedure No -Procedure Performed No -Type of Procedure -Clinical Debridement -Tissue Removed -Post Debridement (cm) - Length -Post Debridement (cm) - Width -Post Debridement (cm) - Depth -Total Square (Post) (cm) -Area of Debridement (cm) - Length -Area of Debridement (cm) - Width -Total Square (Area) (cm) -Tunneling No -Undermining/Tunneling No -Circular Undermining No -Wound/Ulcer Outcome Healed- Epithelialized -Ulcer Cleansing -Foul Odor after Cleansing No -Bioengineered Tissue No -Bleeding Controlled with NA -Treatment Response -Offloading No -Debridement - Subq, 1st 20sq cm Pain Scale: 0-10 Numeric Is Patient Pain Free? Yes - Nurse 3 - General Ulcer D/C NN Start: 05/26/24 11:20 Freq: Status: Active Protocol: Activity Type Activity Date Activity User E-sign Co-sign Detail Recorded Client Recorded Date Recorded By Document 05/26/24 11:57 KW [id number] 05/26/24 11:58 KW Document 06/01/24 14:52 GM [id number] 06/01/24 14:55 GM Document 06/09/24 12:35 RB [id number] 06/09/24 12:36 RB Document 06/16/24 12:20 KW [id number] 06/16/24 12:21 KW 05/26/24 06/01/24 06/09/24 11:57 14:52 12:35 Wound Care Center Nurse 3 #2 Left LE -Primary Dressing Covered/Secured with Dry Gauze #10 Left Allen Cluster -Ulcer Cleansing Not Cleansed Wound Cleanser -Foul Odor after Cleansing No -Primary Dressing Applied Promogran Aquacel Extra, Aquacel Extra, Optilok 6.5x10, Optilok 6.5x10 Other -Other Dressing Abd pads x2 -Primary Dressing Covered/Secured with Dry Gauze & Dry Gauze & Roll Gauze, Roll Gauze, Secured with Secured with Tape Tape -Aquacel Extra 1 1 -Optilok 6.5x10 2 3 -Optilok 8x12 -Promogran 1 Right -Tubular Bandage Double Layer -Size of Tubigrip Used Size F -Size F ($) 2 Left -Multi-Layered Wrap Application -Tubular Bandage Double Layer -Size of Tubigrip Used Size F -Size F ($) 2 BILAT LE -Lotion applied to leg before Yes compression wrap -Multi-Layered Wrap Application Unna Boot - Bilateral ($) -Tubular Bandage Double Layer -Size of Tubigrip Used Size F -Size F ($) 4 Treatment Response Procedure Tolerated Well Pain Scale: 0-10 Numeric Is Patient Pain Free? Yes Yes Yes WC - Visit Discharge Discharge Condition Stable Stable Stable Ambulatory Status Ambulatory, Ambulatory Ambulatory, Walker Walker Transportation Private Auto Private Auto Private Auto Medication Reconcilliation completed & No No provided to patient/care provider Clinical Summary of Care Provided Yes Yes 06/16/24 12:20 Wound Care Center Nurse 3 #2 Left LE -Primary Dressing Covered/Secured with #10 Left Allen Cluster -Ulcer Cleansing -Foul Odor after Cleansing -Primary Dressing Applied Aquacel Extra, Optilok 8x12 -Other Dressing -Primary Dressing Covered/Secured with -Aquacel Extra 1 -Optilok 6.5x10 -Optilok 8x12 2 -Promogran Right -Tubular Bandage Double Layer -Size of Tubigrip Used Size F -Size F ($) 2 Left -Multi-Layered Wrap Application Unna Boot - Left ($) -Tubular Bandage -Size of Tubigrip Used -Size F ($) BILAT LE -Lotion applied to leg before compression wrap -Multi-Layered Wrap Application -Tubular Bandage -Size of Tubigrip Used -Size F ($) Treatment Response Pain Scale: 0-10 Numeric Is Patient Pain Free? Yes WC - Visit Discharge Discharge Condition Stable Ambulatory Status Ambulatory, Walker Transportation Private Auto Medication Reconcilliation completed & No provided to patient/care provider Clinical Summary of Care Provided Yes Assessment/Plan Assessment/Plan (1) Non-pressure chronic ulcer left lower leg, limited to breakdown skin: CODE(S): L97.921 - Non-pressure chronic ulcer of unspecified part of left lower leg limited to breakdown of skin (2) Venous insufficiency: CODE(S): I87.2 - Venous insufficiency (chronic) (peripheral) (3) Edema of both lower extremities: CODE(S): R60.0 - Localized edema (4) Lymphedema: CODE(S): I89.0 - Lymphedema, not elsewhere classified (5) Essential hypertension: CODE(S): I10 - Essential (primary) hypertension (6) Morbid obesity with BMI of 45.0-49.9, adult: CODE(S): E66.01 - Morbid (severe) obesity due to excess calories; Z68.42 - Body mass index [BMI] 45.0-49.9, adult (7) Venous stasis 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: CODE(S): I83.023 - Varicose veins of left lower extremity with ulcer of ankle; L97.321 - Non-pressure 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 QUALIFIERS: Varicose vein presence: with varicose veins Qualified Code(s): I83.023 - Varicose veins of left lower extremity with ulcer of ankle; L97.321 - Non-pressure 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 (8) Debility: CODE(S): R53.81 - Other malaise (9) Osteoarthritis: CODE(S): M19.90 - Unspecified osteoarthritis, unspecified site QUALIFIERS: Osteoarthritis location: multiple joints Osteoarthritis type: primary Qualified Code(s): M15.9 - Polyosteoarthritis, u nspecified (10) COPD (chronic obstructive pulmonary disease): CODE(S): J44.9 - Chronic obstructive pulmonary disease, unspecified QUALIFIERS: COPD type: unspecified COPD Qualified Code(s): J44.9 - Chronic obstructive pulmonary disease, unspecified (11) Chronic hypoxemic respiratory failure: CODE(S): J96.11 - Chronic respiratory failure with hypoxia (12) Pulmonary hypertension: CODE(S): I27.20 - Pulmonary hypertension, unspecified (13) Hypothyroidism: CODE(S): E03.9 - Hypothyroidism, unspecified QUALIFIERS: Hypothyroidism type: unspecified Qualified Code(s): E03.9 - Hypothyroidism, unspecified (14) Type 2 diabetes mellitus: CODE(S): E11.9 - Type 2 diabetes mellitus without complications QUALIFIERS: Diabetes mellitus halfway insulin use: without halfway use Diabetes mellitus complication status: with other specified complica tion Qualified Code(s): E11.69 - Type 2 diabetes mellitus with other specified complication (15) DOLORES (obstructive sleep apnea): CODE(S): G47.33 - Obstructive sleep apnea (adult) (pediatric) PLAN: Plan Evaluation and debridement performed today in clinic as annotated above. At home wound-care instructions: Will treat her left leg with UNNA boot and superabsorber. Right leg will be compressed with tubigrip. She was instructed to keep dressings clean and dry. Will have her use lymphedema pumps for 60 minutes 2-3 times daily. She was advised to call if drainage is heavy and coming through UNNA boot. Off-loading: The patient was instructed to avoid pressure and friction on the affected areas. Reposition every 2 hours at minimum. Avoid prolonged standing and/or dangling of legs. When seated, feet should be elevated at chest level. Frequent ambulation is encouraged. Diet: Patient encouraged to increase protein intake while taking caution to avoid high carbohydrate and/or sugar intake. Encouraged weight loss. Labs/cultures/imaging: Wound Culture of left allen ulcer showed psuedomonas and MRSA. Ciprofloxacin prescribed. Venous ultrasound showed incompetence of veins of left lower extremity and vascular plans on ablation in June 2024. Encouraged her to get her CPAP mask to improve DOLORES and pulmonary HTN treatment compliance which is adding to her decompensated lymphedema. Follow-up: Will have her follow up in 1 week. Return sooner or report to the emergency room should symptoms worsen, or new symptoms arise. Note: [employer] speech recognition contract design agent software was used to create portions of this document. Sound-alike and misspelled words, as well as other contract design agent errors may be contained in the documentation.
== END 2024-06-20 23:59 | disposition home or self-care (01) ==
LOC: WC 10:30
PROVIDERS: PCP Internal Medicine; Referring Provider Internal Medicine; Visit Provider Family Medicine
DX: I83.023 Varicose veins of left lower extremity with ulcer of ankle (principal); L97.821 Non-pressure chronic ulcer of other part of left lower leg limited to breakdown of skin; L97.321 Non-pressure chronic 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; J96.11 Chronic respiratory failure with hypoxia; I50.9 Heart failure, unspecified; I27.20 Pulmonary hypertension, unspecified; J44.9 Chronic obstructive pulmonary disease, unspecified; E66.01 Morbid (severe) obesity due to excess calories; Z68.42 Body mass index [BMI] 45.0-49.9, adult; E11.69 Type 2 diabetes mellitus with other specified complication; R60.0 Localized edema; I89.0 Lymphedema, not elsewhere classified; M15.9 Polyosteoarthritis, unspecified; E03.9 Hypothyroidism, unspecified; G47.33 Obstructive sleep apnea (adult) (pediatric); Z79.01 Long term (current) use of anticoagulants; Z79.890 Hormone replacement therapy; Z79.899 Other long term (current) drug therapy; Z86.718 Personal history of other venous thrombosis and embolism
CPT/HCPCS: 11042; 29580; 87070; 87075; 87077; 87186; 87205; 97597; 99213; G0463

== ENCOUNTER → 2024-06-27 | Outpatient (CLI) | payer MEDICARE, MEDICAID, SELFPAY | END | disposition home or self-care (01) | LOC: SL 13:47 | PROVIDERS: PCP Internal Medicine; Referring Provider Internal Medicine; Visit Provider Internal Medicine | DX: G47.33 Obstructive sleep apnea (adult) (pediatric) (principal) | CPT/HCPCS: 98960; G0463 ==

== ENCOUNTER 2024-07-21 10:00 | Outpatient (RCR) | payer MEDICARE, MEDICAID, SELFPAY ==
[2024-06-21 00:25] VITALS: BP 160/93; PULSE 83; RESP 18; TEMP 36.4; O2SAT 94; BMI 49.8
[2024-06-30 10:53] VITALS: BP 151/60; PULSE 87; RESP 18; TEMP 36.9; BMI 49.8
--- NOTE | 2024-06-30 12:26 | PN.PCM_ITS ---
History of Present Illness Date of Service: 06/30/24 Chief Complaint: B/L LE ulcers, bilateral lower extremity swelling History of Wound: Liz is a pleasant 74 yo woman that presents to the wound center for bilateral lower extremity edema and blisters and drainage of her bilateral lower extremities. She has had increased edema the last 2 weeks and her legs started seeping a few days ago. She has been wearing her tubigrip compression and had been using the lymphedema pumps until they started seeping fluid. She tries to elevate her legs when she is sitting but is not always consistent with doing this. She has been wrapping her leg with gauze when it is seeping but otherwise has not been doing any regular dressings. Patient has been treated at the wound center in the past for similar wounds, most recently October 2023. She has also been seen in the vascular surgery clinic where she was evaluated her for BLE DVT and venous insufficiency. 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 GSV ablation has been done to her right lower leg. She has received lymphedema pumps that were ordered during her last treatment course and has been using these. Last venous study was 03/2022. Last A1C 01/2023 was 6.4%. Last TSH - 01/2022 Patient's medical history is also significant for CHF, COPD, T2DM, lymphedema. She has a CPAP but has not been using this due to needing a new mask. She states that a prescription was to be sent and she never received the mask. Her current mask has a hole in it. Subjective Subjective Liz returns today for treatment of edema to bilateral lower legs. She tolerated UNNA boots and lymphedema pumps. The left allen is healed and lateral leg is having decreased drainage. Venous ultrasound showed incompetence of left lower extremity veins and she has been contacted by vascular to have ablation and tentatively scheduled to have procedure 07/12/24. She has been elevating her legs and using lymphedema pumps as directed. She denies fever, chills. Objective Data Objective Data Vital Signs: Vital Signs Temp Pulse Resp BP Pulse Ox 98.4 F 87 18 151/60 H 94 06/30/24 10:53 06/30/24 10:53 06/30/24 10:53 06/30/24 10:53 06/21/24 00:25 Weight: 140.16 kg Body Mass Index (BMI) 49.8 Physical Exam Const alert, oriented x3 and no apparent distress General Appearance: cooperative and comfortable Nutritional Appearance: obese HEENT normocephalic and head/scalp atraumatic Lymph Lymphatic: lymphedema severe and pitting Resp normal respiratory effort Effort and Inspection: able to speak in complete sentences Cardio regular rate and regular rhythm Extremity General Extremity: edema bilateral lower extremity Details: severe (with skin changes associated with lymphedema, thickened nodular appearance from mid allen to ankle) Skin General Skin Exam: erythema, venous stasis and dermatitis Wounds: wounds noted Wound Narrative: as in clinical panel, mildly decreased erythema and light serous drainage from lateral lower leg, nodular appearance of skin associated with lymphedema Psych mental status grossly normal, thought process normal, cooperative and affect normal Debridement Note Debridement Note Wound debrided: left lateral LE Laterality: Left Type of Debridement: Selective debridement Anesthesia Used: 5% Lidocaine Gel Depth: Down to and including healthy tissue Instrument Used: - (gauze) Tissue Removed: Yellow slough, devitalized tissue Severity: Limited To Skin Breakdown Amount of bleeding with debridement: None Patient tolerated procedure: Patient tolerated procedure well Post-Debridement Measurements and Additional Note: Post-Debridement Measurements/Treatment - Nurse 1 - General Ulcer Assessment Start: 06/30/24 10:53 Freq: Status: Active Protocol: KELSEY Activity Type Activity Date Activity User E-sign Co-sign Detail Recorded Client Recorded Date Recorded By Document 06/30/24 10:53 [id number] 06/30/24 11:04 RB 06/30/24 10:53 - Today's Visit Information Type of service Follow-up Visit (Physician/CLINICAL SPECIALTY REP ) Arrival Mode Ambulatory, Walker Transfer Assistance None Patient Identification Verified (Name & Yes ) Patient Requires Transmission-Based No Precautions Height and Weight Body Mass Index (BMI) 49.8 BMI Classification Obese Vital Signs Temperature (97.8 F-99.1 F) 98.4 F Temperature Source Temporal Pulse Rate (60-100) 87 Pulse Location Monitor Respiratory Rate (12-18) 18 Respiratory rate source Observation Blood Pressure (90/60-120/80) 151/60 H Blood Pressure Mean (mm Hg) 90 Source Monitor Position Semi-Fowlers Blood Pressure Location Left Arm History Since Last Visit- (Skip if this is Patient's initial visit) Have you changed medications since your No last visit? Any new allergies or adverse reactions No Had a fall/change in ADL's that may No increase risk of falls Signs or symptoms of abuse and/or No neglect since last visit Have you been in the hospital since your No last visit? Has dressing in place as prescribed Yes Has compression in place as prescribed Yes Has offloadiing in place as prescribed N/A Experienced any changes in pain level or No management Pain Scale: 0-10 Numeric Is Patient Pain Free? Yes - Nurse 1 - General Ulcer Measurement Start: 06/30/24 10:53 Freq: Status: Active Protocol: Activity Type Activity Date Activity User E-sign Co-sign Detail Recorded Client Recorded Date Recorded By Document 06/30/24 10:53 RB [id number] 06/30/24 11:04 RB 06/30/24 10:53 Wound Center Nurse 1 #10 Left Allen Cluster -Combined with other wound No -Current Size (cm) - Length 0.1 -Current Size (cm) - Width 0.1 -Current Size (cm) - Depth 0.1 -Total Square Cm 0.01 -Photo Taken Yes -Tunneling No -Undermining/Tunneling No -Circular Undermining No -Exudate Amt Medium -Exudate Type Serosanguineous -Wound Margin Distinct, Outline Attached -Granulation Amt Medium (34-66%) -Granulation Quality [place] -Slough/Fibrin Yes -Necrosis Amt Small (1-33%) -Necrotic Tissue Type Adherent Slough -Structure Exposed N/A -Texture (Adrianna-wound Skin Appearance) Assessed -Moisture (Adrianna-wound Skin Appearance) Assessed, Weeping -Color (Adrianna-wound Skin Appearance) Assessed -Temperature (Adrianna-wound Skin No Abnormality Appearance) (Pt Warm) -Tenderness on Palpation (Adrianna-wound No Skin Appearance) -Ulcer Cleansing Wound Cleanser -Foul Odor after Cleansing No -Anesthetic Used 5% Lidocaine Gel Lower Limb Edema Present Yes Left Calf (cm) 58 Left Ankle (cm) 29 - Nurse 2 - General Ulcer CM Notes Start: 06/30/24 10:53 Freq: Status: Active Protocol: Activity Type Activity Date Activity User E-sign Co-sign Detail Recorded Client Recorded Date Recorded By Document 06/30/24 11:19 [id number] 06/30/24 11:26 06/30/24 11:19 Wound Center Nurse 2 #10 Left Allen Cluster -Time 11:21 -Correct Patient Yes -Correct Side, Site, Position Yes -Correct Procedure Yes -Procedure Performed Yes -Type of Procedure Debridement -Clinical Debridement Epidermis / Dermis -Tissue Removed Epidermis -Post Debridement (cm) - Length 2.5 -Post Debridement (cm) - Width 1.0 -Post Debridement (cm) - Depth 0.1 -Total Square (Post) (cm) 2.50 -Area of Debridement (cm) - Length 2.5 -Area of Debridement (cm) - Width 1.0 -Total Square (Area) (cm) 2.50 -Tunneling No -Undermining/Tunneling No -Circular Undermining No -Wound/Ulcer Outcome Not Healed -Foul Odor after Cleansing No -Bioengineered Tissue No -Bleeding Controlled with NA -Debridement - Open, 1st 20sq cm Yes Pain Scale: 0-10 Numeric Is Patient Pain Free? Yes - Nurse 3 - General Ulcer D/C NN Start: 06/30/24 10:53 Freq: Status: Active Protocol: Activity Type Activity Date Activity User E-sign Co-sign Detail Recorded Client Recorded Date Recorded By Document 06/30/24 11:49 [id number] 06/30/24 11:50 06/30/24 11:49 Wound Care Center Nurse 3 #10 Left Allen Cluster -Ulcer Cleansing Rinsed/ Irrigated with Saline -Primary Dressing Applied Aquacel Extra, Optilok 8x12 -Aquacel Extra 1 -Optilok 8x12 1 Right -Other pt own tubigrip double Left -Multi-Layered Wrap Application Unna Boot - Left ($) Treatment Response Procedure Tolerated Well Pain Scale: 0-10 Numeric Is Patient Pain Free? Yes - Visit Discharge Discharge Condition Stable Ambulatory Status Ambulatory, Walker Transportation Private Auto Medication Reconcilliation completed & No provided to patient/care provider Clinical Summary of Care Provided Yes Assessment/Plan Assessment/Plan (1) Non-pressure chronic ulcer left lower leg, limited to breakdown skin: CODE(S): L97.921 - Non-pressure chronic ulcer of unspecified part of left lower leg limited to breakdown of skin (2) Venous insufficiency: CODE(S): I87.2 - Venous insufficiency (chronic) (peripheral) (3) Edema of both lower extremities: CODE(S): R60.0 - Localized edema (4) Lymphedema: CODE(S): I89.0 - Lymphedema, not elsewhere classified (5) Essential hypertension: CODE(S): I10 - Essential (primary) hypertension (6) Morbid obesity with BMI of 45.0-49.9, adult: CODE(S): E66.01 - Morbid (severe) obesity due to excess calories; Z68.42 - Body mass index [BMI] 45.0-49.9, adult (7) Venous stasis 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: CODE(S): I83.023 - Varicose veins of left lower extremity with ulcer of ankle; L97.321 - Non-pressure 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 QUALIFIERS: Varicose vein presence: with varicose veins Qualified Code(s): I83.023 - Varicose veins of left lower extremity with ulcer of ankle; L97.321 - Non-pressure 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 (8) Debility: CODE(S): R53.81 - Other malaise (9) Osteoarthritis: CODE(S): M19.90 - Unspecified osteoarthritis, unspecified site QUALIFIERS: Osteoarthritis location: multiple joints Osteoarthritis type: primary Qualified Code(s): M15.9 - Polyosteoarthritis, unspecified (10) COPD (chronic obstructive pulmonary disease): CODE(S): J44.9 - Chronic obstructive pulmonary disease, unspecified QUALIFIERS: COPD type: unspecified COPD Qualified Code(s): J44.9 - Chronic obstructive pulmonary disease, unspecified (11) Chronic hypoxemic respiratory failure: CODE(S): J96.11 - Chronic respiratory failure with hypoxia (12) Pulmonary hypertension: CODE(S): I27.20 - Pulmonary hypertension, unspecified (13) Hypothyroidism: CODE(S): E03.9 - Hypothyroidism, unspecified QUALIFIERS: Hypothyroidism type: unspecified Qualified Code(s): E 03.9 - Hypothyroidism, unspecified (14) Type 2 diabetes mellitus: CODE(S): E11.9 - Type 2 diabetes mellitus without complications QUALIFIERS: Diabetes mellitus mcc insulin use: without long term care pharmacist use Diabetes mellitus complication status: with other specified complication Qualified Code(s): E11.69 - Type 2 diabetes mellitus with other specified complication (15) DOLORES (obstructive sleep apnea): CODE(S): G47.33 - Obstructive sleep apnea (adult) (pediatric) PLAN: Plan Evaluation and debridement performed today in clinic as annotated above. At home wound-care instructions: Will treat her left leg with UNNA boot and superabsorber. Right leg will be compressed with tubigrip. She was instructed to keep dressings clean and dry. Will have her use lymphedema pumps for 60 minutes 2-3 times daily. She was advised to call if drainage is heavy and coming through UNNA boot. Off-loading: The patient was instructed to avoid pressure and friction on the affected areas. Reposition every 2 hours at minimum. Avoid prolonged standing and/or dangling of legs. When seated, feet should be elevated at chest level. Frequent ambulation is encouraged. Diet: Patient encouraged to increase protein intake while taking caution to avoid high carbohydrate and/or sugar intake. Encouraged weight loss. Labs/cultures/imaging: Wound Culture of left allen ulcer showed psuedomonas and MRSA. Ciprofloxacin prescribed. Venous ultrasound showed incompetence of veins of left lower extremity and vascular plans on ablation in July 06, 2024. Encouraged her to get her CPAP mask to improve DOLORES and pulmonary HTN treatment compliance which is adding to her decompensated lymphedema. Follow-up: Will have her follow up in 2 weeks due to ablation on 07/06/2024. Return sooner or report to the emergency room should symptoms worsen, or new symptoms arise. Note: [employer] speech recognition analytical lab technician software was used to create portions of this document. Sound-alike and misspelled words, as well as other analytical lab technician errors may be contained in the documentation.
[2024-07-14 10:34] VITALS: BP 154/78; PULSE 79; RESP 18; TEMP 36.7; BMI 49.8
--- NOTE | 2024-07-14 13:43 | PN.PCM_ITS ---
History of Present Illness Date of Service: 07/14/24 Chief Complaint: B/L LE ulcers, bilateral lower extremity swelling History of Wound: Liz is a pleasant 74 yo woman that presents to the wound center for bilateral lower extremity edema and blisters and drainage of her bilateral lower extremities. She has had increased edema the last 2 weeks and her legs started seeping a few days ago. She has been wearing her tubigrip compression and had been using the lymphedema pumps until they started seeping fluid. She tries to elevate her legs when she is sitting but is not always consistent with doing this. She has been wrapping her leg with gauze when it is seeping but otherwise has not been doing any regular dressings. Patient has been treated at the wound center in the past for similar wounds, most recently October 2023. She has also been seen in the vascular surgery clinic where she was evaluated her for BLE DVT and venous insufficiency. 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 GSV ablation has been done to her right lower leg. She has received lymphedema pumps that were ordered during her last treatment course and has been using these. Last venous study was 03/2022. Last A1C 01/2023 was 6.4%. Last TSH - 01/2022 Patient's medical history is also significant for CHF, COPD, T2DM, lymphedema. She has a CPAP but has not been using this due to needing a new mask. She states that a prescription was to be sent and she never received the mask. Her current mask has a hole in it. Subjective Subjective Liz returns today for treatment of edema to bilateral lower legs. She tolerated UNNA boots and lymphedema pumps. The left allen is healed and lateral leg is healed currently. Venous ultrasound showed incompetence of left lower extremity veins and her scheduled vascular procedure for 07/12/24 was cancelled and rescheduled for 07/27/2024. She has been elevating her legs and using lymphedema pumps as directed. She denies fever, chills. Objective Data Objective Data Vital Signs: Vital Signs Temp Pulse Resp BP Pulse Ox O2 Del Method 98.0 F 79 18 154/78 H 94 Room Air 07/14/24 10:34 07/14/24 10:34 07/14/24 10:34 07/14/24 10:34 06/21/24 00:25 07/14/24 10:34 Oxygen Delivery Method Room Air Weight: 140.16 kg Body Mass Index (BMI) 49.8 Physical Exam Const alert, oriented x3 and no apparent distress General Appearance: cooperative and comfortable Nutritional Appearance: obese HEENT normocephalic and head/scalp atraumatic Lymph Lymphatic: lymphedema severe and pitting Resp normal respiratory effort Effort and Inspection: able to speak in complete sentences Cardio regular rate and regular rhythm Extremity General Extremity: edema bilateral lower extremity Details: severe (with skin changes associated with lymphedema, thickened nodular appearance from mid allen to ankle) Skin General Skin Exam: erythema, venous stasis and dermatitis Wounds: wounds noted Wound Narrative: as in clinical panel, mildly decreased erythema and light serous drainage from lateral lower leg, nodular appearance of skin associated with lymphedema Psych mental status grossly normal, thought process normal, cooperative and affect normal Debridement Note Debridement Note Wound debrided: left lateral LE Laterality: Left No debridement was completed: No debridement was completed today (ulcer is healed) Post-Debridement Measurements and Additional Note: Post-Debridement Measurements/Treatment - Nurse 1 - General Ulcer Assessment Start: 06/30/24 10:53 Freq: Status: Active Protocol: [email or web address] Activity Type Activity Date Activity User E-sign Co-sign Detail Recorded Client Recorded Date Recorded By Document 06/30/24 10:53 RB [id number] 06/30/24 11:04 RB Document 07/14/24 10:34 KW [id number] 07/14/24 10:40 KW 06/30/24 07/14/24 10:53 10:34 - Today's Visit Information Type of service Follow-up Visit Follow-up Visit (Physician/REGULATORY SUBMISSIONS ASSOCIATE (Physician/REGULATORY SUBMISSIONS ASSOCIATE ) ) Arrival Mode Ambulatory, Ambulatory, Walker Walker Transfer Assistance None Accompanied by Patient Identification Verified (Name & Yes Yes ) Patient Requires Transmission-Based No Precautions Height and Weight Body Mass Index (BMI) 49.8 49.8 BMI Classification Obese Obese Vital Signs Temperature (97.8 F-99.1 F) 98.4 F 98.0 F Temperature Source Temporal Temporal Pulse Rate (60-100) 87 79 Pulse Location Monitor Monitor Respiratory Rate (12-18) 18 18 Respiratory rate source Observation Observation Oxygen Delivery Method Room Air Blood Pressure (90/60-120/80) 151/60 H 154/78 H Blood Pressure Mean (mm Hg) 90 103 Source Monitor Monitor Position Semi-Fowlers Semi-Fowlers Blood Pressure Location Left Arm Left Arm History Since Last Visit- (Skip if this is Patient's initial visit) Have you changed medications since your No No last visit? Any new allergies or adverse reactions No No Had a fall/change in ADL's that may No No increase risk of falls Signs or symptoms of abuse and/or No No neglect since last visit Have you been in the hospital since your No No last visit? Has dressing in place as prescribed Yes Yes Has compression in place as prescribed Yes Yes Has offloadiing in place as prescribed N/A N/A Experienced any changes in pain level or No No management Left Footwear Regular Shoe Right Footwear Regular Shoe Pain Scale: 0-10 Numeric Is Patient Pain Free? Yes Yes WC - Nurse 1 - General Ulcer Measurement Start: 06/30/24 10:53 Freq: Status: Active Protocol: Activity Type Activity Date Activity User E-sign Co-sign Detail Recorded Client Recorded Date Recorded By Document 06/30/24 10:53 RB [id number] 06/30/24 11:04 RB Document 07/14/24 10:34 KW [id number] 07/14/24 10:40 KW 06/30/24 07/14/24 10:53 10:34 Wound Center Nurse 1 #10 Left Allen Cluster -Combined with other wound No -Current Size (cm) - Length 0.1 -Current Size (cm) - Width 0.1 -Current Size (cm) - Depth 0.1 -Total Square Cm 0.01 -Photo Taken Yes -Tunneling No -Undermining/Tunneling No -Circular Undermining No -Exudate Amt Medium -Exudate Type Serosanguineous -Wound Margin Distinct, Outline Attached -Granulation Amt Medium (34-66%) -Granulation Quality [place] -Slough/Fibrin Yes -Necrosis Amt Small (1-33%) -Necrotic Tissue Type Adherent Slough -Structure Exposed N/A -Texture (Adrianna-wound Skin Appearance) Assessed -Moisture (Adrianna-wound Skin Appearance) Assessed, Weeping -Color (Adrianna-wound Skin Appearance) Assessed -Temperature (Adrianna-wound Skin No Abnormality Appearance) (Pt Warm) -Tenderness on Palpation (Adrianna-wound No Skin Appearance) -Ulcer Cleansing Wound Cleanser -Foul Odor after Cleansing No -Anesthetic Used 5% Lidocaine Gel Lower Limb Edema Present Yes Right Calf (cm) 56.5 Right Ankle (cm) 30.5 Left Calf (cm) 58 55 Left Ankle (cm) 29 30.5 - Nurse 2 - General Ulcer CM Notes Start: 06/30/24 10:53 Freq: Status: Active Protocol: Activity Type Activity Date Activity User E-sign Co-sign Detail Recorded Client Recorded Date Recorded By Document 06/30/24 11:19 [id number] 06/30/24 11:26 Document 07/14/24 10:53 [id number] 07/14/24 10:54 06/30/24 07/14/24 11:19 10:53 Wound Center Nurse 2 #10 Left Allen Cluster -Time 11:21 10:53 -Correct Patient Yes Yes -Correct Side, Site, Position Yes Yes -Correct Procedure Yes No -Procedure Performed Yes No -Type of Procedure Debridement -Clinical Debridement Epidermis / Dermis -Tissue Removed Epidermis -Post Debridement (cm) - Length 2.5 -Post Debridement (cm) - Width 1.0 -Post Debridement (cm) - Depth 0.1 -Total Square (Post) (cm) 2.50 -Area of Debridement (cm) - Length 2.5 -Area of Debridement (cm) - Width 1.0 -Total Square (Area) (cm) 2.50 -Tunneling No No -Undermining/Tunneling No No -Circular Undermining No No -Wound/Ulcer Outcome Not Healed Healed- Epithelialized -Foul Odor after Cleansing No No -Bioengineered Tissue No No -Bleeding Controlled with NA NA -Debridement - Open, 1st 20sq cm Yes Pain Scale: 0-10 Numeric Is Patient Pain Free? Yes Yes - Nurse 3 - General Ulcer D/C NN Start: 06/30/24 10:53 Freq: Status: Active Protocol: Activity Type Activity Date Activity User E-sign Co-sign Detail Recorded Client Recorded Date Recorded By Document 06/30/24 11:49 RB [id number] 06/30/24 11:50 RB Document 07/14/24 11:44 KW [id number] 07/14/24 11:47 KW 06/30/24 07/14/24 11:49 11:44 Wound Care Center Nurse 3 #10 Left Allen Cluster -Ulcer Cleansing Rinsed/ Irrigated with Saline -Primary Dressing Applied Aquacel Extra, Optilok 8x12 -Primary Dressing Applied Silicone Border Foam 6x6 -Aquacel Extra 1 -Optilok 8x12 1 -Silicone Border Foam 6x6 1 Right -Tubular Bandage Double Layer -Size of Tubigrip Used Size F -Size F ($) 2 -Other pt own tubigrip double Left -Multi-Layered Wrap Application Unna Boot - Left ($) -Tubular Bandage Double Layer -Size of Tubigrip Used Size F -Size F ($) 2 Treatment Response Procedure Tolerated Well Pain Scale: 0-10 Numeric Is Patient Pain Free? Yes Yes WC - Visit Discharge Discharge Condition Stable Stable Ambulatory Status Ambulatory, Ambulatory Walker Transportation Private Auto Private Auto Medication Reconcilliation completed & No No provided to patient/care provider Clinical Summary of Care Provided Yes Yes Assessment/Plan Assessment/Plan (1) Non-pressure chronic ulcer left lower leg, limited to breakdown skin: CODE(S): L97.921 - Non-pressure chronic ulcer of unspecified part of left lower leg limited to breakdown of skin (2) Venous insufficiency: CODE(S): I87.2 - Venous insufficiency (chronic) (peripheral) (3) Edema of both lower extremities: CODE(S): R60.0 - Localized edema (4) Lymphedema: CODE(S): I89.0 - Lymphedema, not elsewhere classified (5) Essential hypertension: CODE(S): I10 - Essential (primary) hypertension (6) Morbid obesity with BMI of 45.0-49.9, adult: CODE(S): E66.01 - Morbid (severe) obesity due to excess calories; Z68.42 - Body mass index [BMI] 45.0-49.9, adult (7) Venous stasis 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: CODE(S): I83.023 - Varicose veins of left lower extremity with ulcer of ankle; L97.321 - Non-pressure 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 QUALIFIERS: Varicose vein presence: with varicose veins Qualified Code(s): I83.023 - Varicose veins of left lower extremity with ulcer of ankle; L97.321 - Non-pressure 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 (8) Debility: CODE(S): R53.81 - Other malaise (9) Osteoarthritis: CODE(S): M19.90 - Unspecified osteoarthritis, unspecified site QUALIFIERS: Osteoarthritis location: multiple joints Osteoarthritis type: primary Qualified Code(s): M15.9 - Polyosteoarthritis, unspecified (10) COPD (chronic obstructive pulmonary disease): CODE(S): J44.9 - Chronic obstructive pulmonary disease, unspecified QUALIFIERS: COPD type: unspecified COPD Qualified Code(s): J44.9 - Chronic obstructive pulmonary disease, unspecified (11) Chronic hypoxemic respiratory failure: CODE(S): J96.11 - Chronic respiratory failure with hypoxia (12) Pulmonary hypertension: CODE(S): I27.20 - Pulmonary hypertension, unspecified (13) Hypothyroidism: CODE(S): E03.9 - Hypothyroidism, unspecified QUALIFIERS: Hypothyroidism type: unspecified Qualified Code(s): E03.9 - Hypothyroidism, unspecified (14) Type 2 diabetes mellitus: CODE(S): E11.9 - Type 2 diabetes mellitus without complications QUALIFIERS: Diabetes mellitus supervisor intermediates insulin use: without supervisor intermediates use Diabetes mellitus complication status: with other specified complication Qualified Code(s): E11.69 - Type 2 diabetes mellitus with other specified complication (15) DOLORES (obstructive sleep apnea): CODE(S): G47.33 - Obstructive sleep apnea (adult) (pediatric) PLAN: Plan Evaluation and debridement performed today in clinic as annotated above. At home wound-care instructions: Will treat her left leg with foam dressing lateral left leg and tubigrips for compression. Right leg will be compressed with tubigrip. She was instructed to keep dressings clean and dry. Will have her use lymphedema pumps for 60 minutes 2-3 times daily. She was advised to call if drainage is heavy and coming through UNNA boot. Off-loading: The patient was instructed to avoid pressure and friction on the affected areas. Reposition every 2 hours at minimum. Avoid prolonged standing and/or dangling of legs. When seated, feet should be elevated at chest level. Frequent ambulation is encouraged. Diet: Patient encouraged to increase protein intake while taking caution to avoid high carbohydrate and/or sugar intake. Encouraged weight loss. Labs/cultures/imaging: Wound Culture of left allen ulcer showed psuedomonas and MRSA. Ciprofloxacin prescribed. Venous ultrasound showed incompetence of veins of left lower extremity and vascular plans on ablation in 07/27/2024. Encouraged her to get her CPAP mask to improve DOLORES and pulmonary HTN treatment compliance which is adding to her decompensated lymphedema. Follow-up: Will have her follow up in 1 week. Return sooner or report to the emergency room should symptoms worsen, or new symptoms arise. Note: [employer] speech recognition marble setter helper software was used to create portions of this document. Sound-alike and misspelled words, as well as other marble setter helper errors may be contained in the documentation.
[2024-07-21 10:34] VITALS: BP 141/74; PULSE 92; RESP 18; TEMP 36.4; BMI 49.8
--- NOTE | 2024-07-21 15:30 | PN.PCM_ITS ---
History of Present Illness Date of Service: 07/21/24 Chief Complaint: B/L LE ulcers, bilateral lower extremity swelling History of Wound: Liz is a pleasant 74 yo woman that presents to the wound center for bilateral lower extremity edema and blisters and drainage of her bilateral lower extremities. She has had increased edema the last 2 weeks and her legs started seeping a few days ago. She has been wearing her tubigrip compression and had been using the lymphedema pumps until they started seeping fluid. She tries to elevate her legs when she is sitting but is not always consistent with doing this. She has been wrapping her leg with gauze when it is seeping but otherwise has not been doing any regular dressings. Patient has been treated at the wound center in the past for similar wounds, most recently October 2023. She has also been seen in the vascular surgery clinic where she was evaluated her for BLE DVT and venous insufficiency. 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 GSV ablation has been done to her right lower leg. She has received lymphedema pumps that were ordered during her last treatment course and has been using these. Last venous study was 03/2022. Last A1C 01/2023 was 6.4%. Last TSH - 01/2022 Patient's medical history is also significant for CHF, COPD, T2DM, lymphedema. She has a CPAP but has not been using this due to needing a new mask. She states that a prescription was to be sent and she never received the mask. Her current mask has a hole in it. Subjective Subjective Liz returns today for treatment of edema to bilateral lower legs. She tolerated UNNA boots and lymphedema pumps. The left allen is healed and lateral leg is healed currently. Venous ultrasound showed incompetence of left lower extremity veins and her scheduled vascular procedure for 07/12/24 was cancelled and rescheduled for 07/27/2024. She has been elevating her legs and using lymphedema pumps as directed. She denies fever, chills. Objective Data Objective Data Vital Signs: Vital Signs Temp Pulse Resp BP Pulse Ox O2 Del Method 97.6 F L 92 18 141/74 H 94 Room Air 07/21/24 10:34 07/21/24 10:34 07/21/24 10:34 07/21/24 10:34 06/21/24 00:25 07/14/24 10:34 Oxygen Delivery Method Room Air Weight: 140.16 kg Body Mass Index (BMI) 49.8 Physical Exam Const alert, oriented x3 and no apparent distress General Appearance: cooperative and comfortable Nutritional Appearance: obese HEENT normocephalic and head/scalp atraumatic Lymph Lymphatic: lymphedema severe and pitting Resp normal respiratory effort Effort and Inspection: able to speak in complete sentences Cardio regular rate and regular rhythm Extremity General Extremity: edema bilateral lower extremity Details: severe (with skin changes associated with lymphedema, thickened nodular appearance from mid allen to ankle) Skin General Skin Exam: erythema, venous stasis and dermatitis Wounds: wounds noted Wound Narrative: as in clinical panel, mildly decreased erythema and light serous drainage from lateral lower leg, nodular appearance of skin associated with lymphedema Psych mental status grossly normal, thought process normal, cooperative and affect normal Debridement Note Debridement Note Post-Debridement Measurements and Additional Note: Post-Debridement Measurements/Treatment - Nurse 1 - General Ulcer Assessment Start: 06/30/24 10:53 Freq: Status: Active Protocol: KELSEY Activity Type Activity Date Activity User E-sign Co-sign Detail Recorded Client Recorded Date Recorded By Document 06/30/24 10:53 RB [id number] 06/30/24 11:04 RB Document 07/14/24 10:34 KW [id number] 07/14/24 10:40 KW Document 07/21/24 10:34 RB [id number] 07/21/24 10:39 RB 06/30/24 07/14/24 07/21/24 10:53 10:34 10:34 - Today's Visit Information Type of service Follow-up Visit Follow-up Visit Follow-up Visit (Physician/DIRECTOR OF RESOURCE DEVELOPMENT (Physician/DIRECTOR OF RESOURCE DEVELOPMENT (Physician/DIRECTOR OF RESOURCE DEVELOPMENT ) ) ) Arrival Mode Ambulatory, Ambulatory, Ambulatory, Walker Walker Walker Transfer Assistance None None Accompanied by Patient Identification Verified (Name & Yes Yes Yes ) Patient Requires Transmission-Based No No Precautions Height and Weight Body Mass Index (BMI) 49.8 49.8 49.8 BMI Classification Obese Obese Obese Vital Signs Temperature (97.8 F-99.1 F) 98.4 F 98.0 F 97.6 F L Temperature Source Temporal Temporal Temporal Pulse Rate (60-100) 87 79 92 Pulse Location Monitor Monitor Monitor Respiratory Rate (12-18) 18 18 18 Respiratory rate source Observation Observation Observation Oxygen Delivery Method Room Air Blood Pressure (90/60-120/80) 151/60 H 154/78 H 141/74 H Blood Pressure Mean (mm Hg) 90 103 96 Source Monitor Monitor Monitor Position Semi-Fowlers Semi-Fowlers Sitting Blood Pressure Location Left Arm Left Arm Right Arm History Since Last Visit- (Skip if this is Patient's initial visit) Have you changed medications since your No No No last visit? Any new allergies or adverse reactions No No No Had a fall/change in ADL's that may No No No increase risk of falls Signs or symptoms of abuse and/or No No No neglect since last visit Have you been in the hospital since your No No No last visit? Has dressing in place as prescribed Yes Yes Yes Has compression in place as prescribed Yes Yes Yes Has offloadiing in place as prescribed N/A N/A N/A Experienced any changes in pain level or No No No management Left Footwear Regular Shoe Right Footwear Regular Shoe Pain Scale: 0-10 Numeric Is Patient Pain Free? Yes Yes Yes WC - Nurse 1 - General Ulcer Measurement Start: 06/30/24 10:53 Freq: Status: Active Protocol: Activity Type Activity Date Activity User E-sign Co-sign Detail Recorded Client Recorded Date Recorded By Document 06/30/24 10:53 RB [id number] 06/30/24 11:04 RB Document 07/14/24 10:34 KW [id number] 07/14/24 10:40 KW Document 07/21/24 10:34 RB [id number] 07/21/24 10:39 RB 06/30/24 07/14/24 07/21/24 10:53 10:34 10:34 Wound Center Nurse 1 #10 Left Allen Cluster -Combined with other wound No No -Current Size (cm) - Length 0.1 0.1 -Current Size (cm) - Width 0.1 0.1 -Current Size (cm) - Depth 0.1 0.1 -Total Square Cm 0.01 0.01 -Photo Taken Yes Yes -Epithelialization Large 67-100% -Tunneling No No -Undermining/Tunneling No No -Circular Undermining No No -Exudate Amt Medium Large -Exudate Type Serosanguineous Serosanguineous -Wound Margin Distinct, Distinct, Outline Outline Attached Attached -Granulation Amt Medium (34-66%) Large (67-100%) -Granulation Quality [place] -Slough/Fibrin Yes Yes -Necrosis Amt Small (1-33%) Small (1-33%) -Necrotic Tissue Type Adherent Slough Adherent Slough -Structure Exposed N/A N/A -Texture (Adrianna-wound Skin Appearance) Assessed Localized Edema -Moisture (Adrianna-wound Skin Appearance) Assessed, Weeping Weeping -Color (Adrianna-wound Skin Appearance) Assessed Assessed -Temperature (Adrianna-wound Skin No Abnormality No Abnormality Appearance) (Pt Warm) (Pt Warm) -Tenderness on Palpation (Adrianna-wound No No Skin Appearance) -Ulcer Cleansing Wound Cleanser Wound Cleanser -Foul Odor after Cleansing No No -Anesthetic Used 5% Lidocaine Gel Lower Limb Edema Present Yes Yes Right Calf (cm) 56.5 53.5 Right Ankle (cm) 30.5 30.5 Left Calf (cm) 58 55 Left Ankle (cm) 29 30.5 WC - Nurse 2 - General Ulcer CM Notes Start: 06/30/24 10:53 Freq: Status: Active Protocol: Activity Type Activity Date Activity User E-sign Co-sign Detail Recorded Client Recorded Date Recorded By Document 06/30/24 11:19 [id number] 06/30/24 11:26 Document 07/14/24 10:53 [id number] 07/14/24 10:54 Document 07/21/24 11:38 [id number] 07/21/24 11:38 06/30/24 07/14/24 07/21/24 11:19 10:53 11:38 Wound Center Nurse 2 #10 Left Allen Cluster -Time 11:21 10:53 11:38 -Correct Patient Yes Yes Yes -Correct Side, Site, Position Yes Yes Yes -Correct Procedure Yes No No -Procedure Performed Yes No No -Type of Procedure Debridement -Clinical Debridement Epidermis / Dermis -Tissue Removed Epidermis -Post Debridement (cm) - Length 2.5 -Post Debridement (cm) - Width 1.0 -Post Debridement (cm) - Depth 0.1 -Total Square (Post) (cm) 2.50 -Area of Debridement (cm) - Length 2.5 -Area of Debridement (cm) - Width 1.0 -Total Square (Area) (cm) 2.50 -Tunneling No No No -Undermining/Tunneling No No No -Circular Undermining No No No -Wound/Ulcer Outcome Not Healed Healed- Healed- Epithelialized Epithelialized -Foul Odor after Cleansing No No -Bioengineered Tissue No No -Bleeding Controlled with NA NA NA -Debridement - Open, 1st 20sq cm Yes Pain Scale: 0-10 Numeric Is Patient Pain Free? Yes Yes Yes - Nurse 3 - General Ulcer D/C NN Start: 06/30/24 10:53 Freq: Status: Active Protocol: Activity Type Activity Date Activity User E-sign Co-sign Detail Recorded Client Recorded Date Recorded By Document 06/30/24 11:49 RB [id number] 06/30/24 11:50 RB Document 07/14/24 11:44 KW [id number] 07/14/24 11:47 KW Document 07/21/24 10:34 RB [id number] 07/21/24 10:39 RB Document 07/21/24 12:11 RB [id number] 07/21/24 12:12 RB 06/30/24 07/14/24 07/21/24 11:49 11:44 10:34 Wound Care Center Nurse 3 #10 Left Allen Cluster -Ulcer Cleansing Rinsed/ Irrigated with Saline -Primary Dressing Applied Aquacel Extra, Optilok 8x12 -Primary Dressing Applied Silicone Border Foam 6x6 -Aquacel Extra 1 -Optilok 8x12 1 -Silicone Border Foam 6x6 1 Right -Tubular Bandage Double Layer -Size of Tubigrip Used Size F -Size F ($) 2 -Other pt own tubigrip double Left -Multi-Layered Wrap Application Unna Boot - Left ($) -Tubular Bandage Double Layer -Size of Tubigrip Used Size F -Size F ($) 2 BILAT LE -Tubular Bandage -Size of Tubigrip Used -Size F ($) -Stockings Treatment Response Procedure Tolerated Well Vital Signs Temperature (97.8 F-99.1 F) 97.6 F L Temperature Source Temporal Pulse Rate (60-100) 92 Pulse Location Monitor Respiratory Rate (12-18) 18 Respiratory rate source Observation Blood Pressure (90/60-120/80) 141/74 H Blood Pressure Mean (mm Hg) 96 Source Monitor Position Sitting Blood Pressure Location Right Arm Pain Scale: 0-10 Numeric Is Patient Pain Free? Yes Yes Yes - Visit Discharge Discharge Condition Stable Stable Ambulatory Status Ambulatory, Ambulatory Walker Transportation Private Auto Private Auto Medication Reconcilliation completed & No No provided to patient/care provider Clinical Summary of Care Provided Yes Yes 07/21/24 12:11 Wound Care Center Nurse 3 #10 Left Allen Cluster -Ulcer Cleansing -Primary Dressing Applied -Primary Dressing Applied Silicone Border Foam 6x6 -Aquacel Extra -Optilok 8x12 -Silicone Border Foam 6x6 1 Right -Tubular Bandage -Size of Tubigrip Used -Size F ($) -Other Left -Multi-Layered Wrap Application -Tubular Bandage -Size of Tubigrip Used -Size F ($) BILAT LE -Tubular Bandage Double Layer -Size of Tubigrip Used Size F -Size F ($) 4 -Stockings No Treatment Response Procedure Tolerated Well Vital Signs Temperature (97.8 F-99.1 F) Temperature Source Pulse Rate (60-100) Pulse Location Respiratory Rate (12-18) Respiratory rate source Blood Pressure (90/60-120/80) Blood Pressure Mean (mm Hg) Source Position Blood Pressure Location Pain Scale: 0-10 Numeric Is Patient Pain Free? Yes WC - Visit Discharge Discharge Condition Stable Ambulatory Status Ambulatory Transportation Private Auto Medication Reconcilliation completed & No provided to patient/care provider Clinical Summary of Care Provided Yes Assessment/Plan Assessment/Plan (1) Non-pressure chronic ulcer left lower leg, limited to breakdown skin: CODE(S): L97.921 - Non-pressure chronic ulcer of unspecified part of left lower leg limited to breakdown of skin (2) Venous insufficiency: CODE(S): I87.2 - Venous insufficiency (chronic) (peripheral) (3) Edema of both lower extremities: CODE(S): R60.0 - Localized edema (4) Lymphedema: CODE(S): I89.0 - Lymphedema, not elsewhere classified (5) Essential hypertension: CODE(S): I10 - Essential (primary) hypertension (6) Morbid obesity with BMI of 45.0-49.9, adult: CODE(S): E66.01 - Morbid (severe) obesity due to excess calories; Z68.42 - Body mass index [BMI] 45.0-49.9, adult (7) Venous stasis 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: CODE(S): I83.023 - Varicose veins of left lower extremity with ulcer of ankle; L97.321 - Non-pressure 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 QUALIFIERS: Varicose vein presence: with varicose veins Qualified Code(s): I83.023 - Varicose veins of left lower extremity with ulcer of ankle; L97.321 - Non-pressure 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 (8) Debility: CODE(S): R53.81 - Other malaise (9) Osteoarthritis: CODE(S): M19.90 - Unspecified osteoarthritis, unspecified site QUALIFIERS: Osteoarthritis location: multiple joints Osteoarthritis type: primary Qualified Code(s): M15.9 - Polyosteoarthritis, unspecified (10) COPD (chronic obstructive pulmonary disease): CODE(S): J44.9 - Chronic obstructive pulmonary disease, unspecified QUALIFIERS: COPD type: unspecified COPD Qualified Code(s): J44.9 - Chronic obstructive pulmonary disease, unspecified (11) Chronic hypoxemic respiratory failure: CODE(S): J96.11 - Chronic respiratory failure with hypoxia (12) Pulmonary hypertension: CODE(S): I27.20 - Pulmonary hypertension, unspecified (13) Hypothyroidism: CODE(S): E03.9 - Hypothyroidism, unspecified QUALIFIERS: Hypothyroidism type: unspecified Qualified Code(s): E03.9 - Hypothyroidism, unspecified (14) Type 2 diabetes mellitus: CODE(S): E11.9 - Type 2 diabetes mellitus without complications QUALIFIERS: Diabetes mellitus senior living insulin use: without ocean transportation intermediary use Diabetes mellitus complication status: with other specified complication Qualified Code(s): E11.69 - Type 2 diabetes mellitus with other specified complication (15) DOLORES (obstructive sleep apnea): CODE(S): G47.33 - Obstructive sleep apnea (adult) (pediatric) PLAN: Plan Evaluation and debridement performed today in clinic as annotated above. At home wound-care instructions: Will treat her left leg with foam dressing lateral left leg and tubigrips for compression. Right leg will be compressed wi th tubigrip. She was instructed to keep dressings clean and dry. Will have her use lymphedema pumps for 60 minutes 2-3 times daily. Off-loading: The patient was instructed to avoid pressure and friction on the affected areas. Reposition every 2 hours at minimum. Avoid prolonged standing and/or dangling of legs. When seated, feet should be elevated at chest level. Frequent ambulation is encouraged. Diet: Patient encouraged to increase protein intake while taking caution to avoid high carbohydrate and/or sugar intake. Encouraged weight loss. Labs/cultures/imaging: Wound Culture of left allen ulcer showed psuedomonas and MRSA. Ciprofloxacin prescribed. Venous ultrasound showed incompetence of veins of left lower extremity and vascular plans on ablation in 07/27/2024. Encouraged her to get her CPAP mask to improve DOLORES and pulmonary HTN treatment compliance which is adding to her decompensated lymphedema. Follow-up: Will have her follow up in 2 weeks. Return sooner or report to the emergency room should symptoms worsen, or new symptoms arise. Note: [employer] speech recognition hobbies and crafts sales representative software was used to create portions of this document. Sound-alike and misspelled words, as well as other hobbies and crafts sales representative errors may be contained in the documentation.
--- NOTE | 2024-07-24 11:25 | WC ---
PHOTO 07/21/24 LEFT ADAMS CLUSTER
== END 2024-07-21 23:59 | disposition home or self-care (01) ==
LOC: WC 10:00
PROVIDERS: PCP Internal Medicine; Referring Provider Internal Medicine; Visit Provider Family Medicine
DX: I83.023 Varicose veins of left lower extremity with ulcer of ankle (principal); L97.321 Non-pressure chronic 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; J96.11 Chronic respiratory failure with hypoxia; I50.9 Heart failure, unspecified; I27.20 Pulmonary hypertension, unspecified; J44.9 Chronic obstructive pulmonary disease, unspecified; Z68.42 Body mass index [BMI] 45.0-49.9, adult; E66.01 Morbid (severe) obesity due to excess calories; E11.9 Type 2 diabetes mellitus without complications; I87.2 Venous insufficiency (chronic) (peripheral); R60.0 Localized edema; M19.90 Unspecified osteoarthritis, unspecified site; E03.9 Hypothyroidism, unspecified; G47.33 Obstructive sleep apnea (adult) (pediatric); Z79.890 Hormone replacement therapy; Z79.899 Other long term (current) drug therapy; Z86.718 Personal history of other venous thrombosis and embolism
CPT/HCPCS: 29580; 97597; 99213; G0463

== ENCOUNTER 2024-07-27 08:33 | Day surgery (SDC) | payer MEDICARE, MEDICAID, SELFPAY ==
[2024-07-05 08:47] VITALS: BMI 52.4
--- NOTE | 2024-07-27 10:42 | PCM.HP.STD ---
HPI - General HPI Narrative JERRY BRO, is a 74 F who presents with left leg venous insufficiency, recurrent wounds/drainage. Currently seeping from anterior lower leg. [facility] Medical History MRSA (methicillin resistant staph aureus) culture positive Colon cancer screening Debility Osteoarthritis Left knee pain Shingles Urinary incontinence with continuous leakage Gastric ulcer Wears glasses Wears dentures Depression Alcohol use Blister Diabetes Walker as ambulation aid Bladder disease DVT (deep venous thrombosis) Easy bruising Back pain Syncope Dietary restriction Constipation Difficulty swallowing Former smoker CPAP (continuous positive airway pressure) dependence On home oxygen therapy Shortness of breath on exertion Neuropathy Leg cramps History of pain when walking History of edema Hypertension History of CHF (congestive heart failure) History of echocardiogram Cardiology follow-up encounter Hx of cyst of breast Abdominal pain Secondary pulmonary arterial hypertension Hyperlipidemia Left ventricular hypertrophy DVT, bilateral lower limbs Health care maintenance Dermatitis Sore throat Essential hypertension Morbid obesity with BMI of 45.0-49.9, adult Inactivity Lymphedema Asthma GERD (gastroesophageal reflux disease) Ulcer of right lower extremity Difficulty swallowing Depression Type 2 diabetes mellitus Chronic respiratory failure with hypoxia DOLORES (obstructive sleep apnea) Hypothyroidism Pneumonia due to COVID-19 virus (01/30/21) Diabetes mellitus type 2 in obese COPD (chronic obstructive pulmonary disease) Home Medications ?Medication ?Instructions ?Recorded ?Last Taken ?Type calcium 300 mg-D3 20 mcg-magnesium 1 tab PO DAILY 06/09/21 Unknown History 25 mg-coppr 0.5 sh-wviv-nosh tablet (Caltrate-D3 Plus Minerals) Nebulizer #1 ea 10/06/21 Unknown Rx docusate sodium 100 mg capsule 100 mg PO BID 06/04/22 Unknown History (Stool Softener) furosemide 40 mg tablet 40 mg PO BID HEART FAILURE #180 09/04/22 Unknown Rx tabs Handicap Placard #1 ea 11/02/22 Unknown Rx Bedside Commode #1 ea 02/11/23 Unknown Rx walker (Ultra-Light Rollator misc) #1 ea 02/11/23 Unknown Rx albuterol sulfate 90 mcg/actuation 2 inh inhalation Q4H PRN shortness 09/24/23 Unknown Rx breath activated powder inhaler of breath or wheezing #1 ea Cpap Supplies #1 ea 12/03/23 Unknown Rx walker (Ultra-Light Rollator misc) #1 ea 12/14/23 Unknown Rx carvedilol 25 mg tablet 25 mg PO BID #180 tabs 12/19/23 07/27/24 Rx oxybutynin chloride 5 mg tablet 5 mg PO BID bladder #180 tabs 12/19/23 07/27/24 Rx foam bandage 4 X 4 (Aquacel Foam) #10 ea 02/17/24 Unknown Rx ciprofloxacin HCl 500 mg tablet 500 mg PO BID #20 tabs 02/25/24 Unknown Rx atorvastatin 40 mg tablet 40 mg PO QHS #90 tabs 03/22/24 Unknown Rx levothyroxine 100 mcg tablet See Rx Instructions .Route 04/05/24 07/27/24 Rx .COMPLEX #90 tabs pantoprazole 40 mg tablet,delayed 40 mg PO DAILY #90 tabs 04/05/24 07/27/24 Rx release albuterol sulfate 90 mcg/actuation 2 puff inhalation Q6H PRN PRN for 04/27/24 Unknown Rx aerosol inhaler wheezing #8.5 ea mupirocin 2 % topical ointment 1 applic topical BID #15 grams 05/12/24 Unknown Rx sulfamethoxazole 800 1 tab PO BID #20 tabs 06/09/24 Unknown Rx mg-trimethoprim 160 mg tablet (Bactrim DS) fluticasone fur. 200 mcg-umeclid 1 inh inhalation DAILY #60 ea 06/20/24 Unknown Rx 62.5 mcg-vilant 25 mcg inhalat.powder (Trelegy Ellipta) Allergy/AdvReac Type Severity Reaction Status Date / Time metformin AdvReac Intermediate Other Verified 06/08/24 17:17 aspirin AdvReac Abd Verified 06/08/24 17:17 cramps/diarrhea codeine AdvReac Abd Verified 06/08/24 17:17 cramps/diarrhea Penicillins AdvReac Hives Verified 06/08/24 17:17 Family History Grandfather Cancer Daughter Ovarian cancer Brother Diabetes Kidney disease Surgical History History of esophagogastroduodenoscopy (EGD) Hx of colonoscopy History of bunionectomy Hx of cholecystectomy Social History Smoking Status: Former smoker Tobacco: How many years used: 30 how long ago did patient quit smokin years alcohol intake: never substance use type: does not use what type of physical activity do you participate in: none ROS Constitutional Constitutional: Denies chills, fever(s), frequent falls, lethargy or weakness Eyes Eyes: Denies blind spots, change in vision or loss of vision ENT HEENT: Denies bleeding gums, hoarseness or sore throat Cardiovascular Cardiovascular: Denies abdominal pain, bluish discoloration of hand/feet, chest pain with activity, claudication, cold extremities, cyanosis, dyspnea on exertion, erythema on extremities, irregular heart rhythm, leg edema, leg ulcers, numbness in extremities or weakness in extremities Respiratory/Chest Respiratory/Chest: Denies cough, excessive phlegm production, shortness of breath at rest, shortness of breath with exertion or wheezing Gastrointestinal Gastrointestinal: Denies anorexia, change in stool character, constipation, diarrhea, melena or rectal bleeding Genitourinary Genitourinary: Denies dysuria or hematuria Musculoskeletal Musculoskeletal: Denies abnormal gait Integumentary Integumentary: Reports other Details: ; Denies erythema, non-healing lesions or wounds Neurologic Neurologic: Denies abnormal speech, focal weakness, headache(s), loss of vision, numbness, paresthesias or sensory deficit Hematologic/Lymphatic Hematologic/Lymphatic: Denies easy bleeding, easy bruising or lymphadenopathy Vital Signs Vital Signs Vital Signs: Weight Weight: 315 lb Body Mass Index (BMI) 52.4 Physical Exam Const alert, oriented x3, no apparent distress and healthy appearing General Appearance: cooperative; Negative for combative or lethargic Orientation / Consciousness: awake Exam Limitations: no limitations HEENT Head and Scalp: normocephalic and atraumatic Eyes EOMs intact bilaterally General Eye: normal appearance of both eyes Neck full ROM General: trachea midline Resp normal respiratory effort and no use of accessory muscles Effort and Inspection: Negative for labored, stridor or audible wheezes Cardio regular rate and regular rhythm Back/Spine Cervical Spine: cervical ROM normal Extremity full ROM, normal capillary refill and no clubbing, cyanosis or edema Skin no rashes or lesions noted Neuro oriented x3, CN's II-XII intact bilaterally, no focal motor deficits and no sensory deficits noted Psych thought process normal, cooperative, affect normal, speech normal and activity/motor behavior normal Assessment & Plan Assessment/Plan (1) Venous stasis 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: QUALIFIERS: Varicose vein presence: with varicose veins Qualified Code(s): I83.023 - Varicose veins of left lower extremity with ulcer of ankle; L97.321 - Non-pressure 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 PLAN: -GSV reflux, reflux in calf accessory and 2 perforators -recurrent wounds -chemical ablation; will heopfully also close ASV and perforators
--- NOTE | 2024-07-27 16:50 | PCM.OPRPT ---
Operative Report (Standard) Operative Information Date of Procedure: 07/27/24 Pre-Operative Diagnosis: Venous insufficiency with recurrent ulceration of the left lower extremity Post-Operative Diagnosis: Same Surgery/Procedure Performed: Chemical ablation left great saphenous vein cafeteria attendant: No Type of Anesthesia: Local and Sedation,Conscious Procedure Start Time: 11:00 Procedure Stop Time: 11:30 Select all DRAINS/GRAFTS/IMPLANTS that apply: None Estimated Blood Loss: 2 Specimen collected: No Description of surgery: HPI: Patient is a 74-year-old female with recurrent ulceration and weeping venous wounds of the left lower extremity. She has reflux throughout the great saphenous vein and she presents now for chemical ablation. Description of procedure: Upon obtaining form consent and verification correct patient procedure site the patient was taken to the [facility] where she was positioned prepped and draped in usual sterile fashion. Time out was performed and conscious sedation administered with Versed and fentanyl. The great saphenous vein was evaluated ultrasound found to be continuous with no significant parallel branching from the saphenofemoral junction to the distal calf. Skin overlying the vessel in the distal calf was anesthetized 1% lidocaine the vessel accessed under ultrasound guidance with a micropuncture needle wire. This then exchanged for the 7 Sinhala glue delivery sheath which was advanced without resistance. Next of the glue delivery guide was advanced and positioned 5 cm inferior to the saphenofemoral junction. The glue delivery catheter was advanced through the sheath and positioned 5 cm inferior to the saphenofemoral junction. Glue was then deposited along the great saphenous vein down to the sheath. Once the treatment zone was completed the guide and catheter withdrawn and the sheath withdrawn followed by 5 minutes minute pressure till hemostasis was obtained. The saphenofemoral junction was evaluated at the completion and found to be patent and compressible with no evidence of thrombus or glue approaching the junction. Dry sterile dressing and Aldo wrap's were then applied and the patient was then taken recovery area with plan discharged to home. Surgical Findings: See above Complications Complications: No
== END 2024-07-27 13:00 | disposition home or self-care (01) ==
PROVIDERS: PCP Internal Medicine; Referring Provider Surgery Trauma Surgery; Visit Provider Surgery Trauma Surgery
DX: I83.023 Varicose veins of left lower extremity with ulcer of ankle (principal); L97.321 Non-pressure chronic 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; I10 Essential (primary) hypertension; Z79.51 Long term (current) use of inhaled steroids; Z79.899 Other long term (current) drug therapy; Z86.16 Personal history of COVID-19; Z87.891 Personal history of nicotine dependence
CPT/HCPCS: 36482; 99152; 99153; C1894; C1769

== ENCOUNTER → 2024-07-31 | Outpatient (CLI) | payer MEDICARE, MEDICAID, SELFPAY ==
--- NOTE | 2024-07-31 10:59 | VDLE_ITS ---
Reason For Study Reason For Study: HX LLE GSV chamical ablation RIGHT LEFT CFV is compressible, spontaneous, phasic, competent Lt GSV is dilated and NONCOMPRESSIBLE with and demonstrates normal augmentation. Intraluminal echoes from mid calf to SFJ. Finding is Procedure consistent with recent chemical ablation. This is a venous duplex using B-mode, color flow and CFV is compressible, spontaneous, phasic, competent, spectral Doppler. and demonstrates normal augmentation. Exam performed in department. FV is compressible, spontaneous, phasic, competent The study was technically difficult. and demonstrates normal augmentation. Unable to Limited views were obtained. visualize distal FV. POP V is compressible, spontaneous, phasic, competent and demonstrates normal augmentation. T/P Trunk is compressible. PTV is compressible. Unable to visualize proximal Derek V. Mid and Dist LT Derek V is compressible. VL/Venous Duplex US, Unilateral Interpretation Summary Deep veins of the left lower extremity are patent and compressible segmentally. There is no evidence of left lower extremity deep vein thrombosis. Left great saphenous vein occluded consistent with recent chemical ablation. Limited study due to body habitus. Ordering Physician: Molly Beck Referring Physician: Luis Cortés Performed By: Micah Allred RVT
== END | disposition home or self-care (01) ==
LOC: CVS 10:56
PROVIDERS: PCP Internal Medicine; Referring Provider Surgery Trauma Surgery; Visit Provider Surgery Trauma Surgery
DX: Z48.812 Encounter for surgical aftercare following surgery on the circulatory system (principal); I87.2 Venous insufficiency (chronic) (peripheral)
CPT/HCPCS: 93971

== ENCOUNTER 2024-08-18 09:15 | Outpatient (RCR) | payer MEDICARE, MEDICAID, SELFPAY ==
[2024-07-22 00:50] VITALS: BP 141/74; PULSE 92; RESP 18; TEMP 36.4; O2SAT 94; BMI 49.8
[2024-08-04 10:44] VITALS: BP 160/71; PULSE 71; RESP 18; TEMP 36.1; BMI 49.8
--- NOTE | 2024-08-04 13:56 | PCM.WC.PN ---
History of Present Illness Date of Service: 08/04/24 Chief Complaint: B/L LE ulcers, bilateral lower extremity swelling History of Wound: Liz is a pleasant 74 yo woman that presents to the wound center for bilateral lower extremity edema and blisters and drainage of her bilateral lower extremities. She has had increased edema the last 2 weeks and her legs started seeping a few days ago. She has been wearing her tubigrip compression and had been using the lymphedema pumps until they started seeping fluid. She tries to elevate her legs when she is sitting but is not always consistent with doing this. She has been wrapping her leg with gauze when it is seeping but otherwise has not been doing any regular dressings. Patient has been treated at the wound center in the past for similar wounds, most recently October 2023. She has also been seen in the vascular surgery clinic where she was evaluated her for BLE DVT and venous insufficiency. 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 GSV ablation has been done to her right lower leg. She has received lymphedema pumps that were ordered during her last treatment course and has been using these. Last venous study was 03/2022. Last A1C 01/2023 was 6.4%. Last TSH - 01/2022 Patient's medical history is also significant for CHF, COPD, T2DM, lymphedema. She has a CPAP but has not been using this due to needing a new mask. She states that a prescription was to be sent and she never received the mask. Her current mask has a hole in it. Subjective Subjective Liz returns today for treatment of edema to bilateral lower legs. She underwent venous ablation of left lower leg on 07/27/2024. She has been elevating her legs and using lymphedema pumps as directed. She does continue to have drainage from left lateral lower leg and has mild erythema but no obvious ulcer, just skin breakdown. She denies fever, chills. Objective Data Objective Data Vital Signs: Vital Signs Temp Pulse Resp BP Pulse Ox 96.9 F L 71 18 160/71 H 94 08/04/24 10:44 08/04/24 10:44 08/04/24 10:44 08/04/24 10:44 07/22/24 00:50 Weight: 140.16 kg Body Mass Index (BMI) 49.8 Physical Exam Const alert, oriented x3, no apparent distress and healthy appearing General Appearance: cooperative; Negative for combative or lethargic Orientation / Consciousness: awake Exam Limitations: no limitations Nutritional Appearance: obese HEENT normocephalic and head/scalp atraumatic Head and Scalp: normocephalic and atraumatic Eyes EOMs intact bilaterally General Eye: normal appearance of both eyes Neck full ROM General: trachea midline Lymph Lymphatic: lymphedema severe and pitting Resp normal respiratory effort and no use of accessory muscles Effort and Inspection: Negative for labored, stridor or audible wheezes Cardio regular rate and regular rhythm Back/Spine Cervical Spine: cervical ROM normal Extremity full ROM, normal capillary refill and no clubbing, cyanosis or edema General Extremity: edema bilateral lower extremity Details: severe (with skin changes associated with lymphedema, thickened nodular appearance from mid allen to ankle) Skin no rashes or lesions noted General Skin Exam: erythema, venous stasis and dermatitis Wounds: wounds noted Wound Narrative: as in clinical panel, mildly decreased erythema and light serous drainage from lateral lower leg, nodular appearance of skin associated with lymphedema Neuro oriented x3, CN's II-XII intact bilaterally, no focal motor deficits and no sensory deficits noted Psych thought process normal, cooperative, affect normal, speech normal and activity/motor behavior normal Debridement Note Debridement Note Wound debrided: Left lateral lower leg Laterality: Left No debridement was completed: No debridement was completed today (no slough present just serous drainage, skin weeping) Post-Debridement Measurements and Additional Note: Post-Debridement Measurements/Treatment - Nurse 1 - General Ulcer Assessment Start: 08/04/24 10:43 Freq: Status: Active Protocol: KELSEY Activity Type Activity Date Activity User E-sign Co-sign Detail Recorded Client Recorded Date Recorded By Document 08/04/24 10:44 ROBERT [id number] 08/04/24 10:46 RB 08/04/24 10:44 - Today's Visit Information Type of service Follow-up Visit (Physician/DROP WIRE BUILDER ) Arrival Mode Ambulatory, Walker Transfer Assistance Manual Patient Identification Verified (Name & Yes ) Patient Requires Transmission-Based No Precautions Height and Weight Body Mass Index (BMI) 49.8 BMI Classification Obese Vital Signs Temperature (97.8 F-99.1 F) 96.9 F L Temperature Source Temporal Pulse Rate (60-100) 71 Pulse Location Monitor Respiratory Rate (12-18) 18 Respiratory rate source Observation Blood Pressure (90/60-120/80) 160/71 H Blood Pressure Mean (mm Hg) 100 Source Monitor Position Semi-Fowlers Blood Pressure Location Left Arm History Since Last Visit- (Skip if this is Patient's initial visit) Have you changed medications since your No last visit? Any new allergies or adverse reactions No Had a fall/change in ADL's that may No increase risk of falls Signs or symptoms of abuse and/or No neglect since last visit Have you been in the hospital since your No last visit? Has dressing in place as prescribed Yes Has compression in place as prescribed Yes Has offloadiing in place as prescribed N/A Experienced any changes in pain level or No management Left Footwear Regular Shoe Right Footwear Regular Shoe Pain Scale: 0-10 Numeric Is Patient Pain Free? No BILAT LE -Description Aching -Intensity 4 -Duration (hours) Acute -Pain Behavior Irritability -Pain Aggravating Factors Exercise/ Activity -Alleviating Factors/Interventions Medication -Effectiveness of Alleviating Factor/ Moderately Intervention effective WC - Nurse 1 - General Ulcer Measurement Start: 08/04/24 10:43 Freq: Status: Active Protocol: Activity Type Activity Date Activity User E-sign Co-sign Detail Recorded Client Recorded Date Recorded By Document 08/04/24 10:44 ROBERT [id number] 08/04/24 10:46 ROBERT 08/04/24 10:44 Wound Center Nurse 1 #10 Left Allen Cluster -Combined with other wound No -Current Size (cm) - Length 0.1 -Current Size (cm) - Width 0.1 -Current Size (cm) - Depth 0.1 -Total Square Cm 0.01 -Tunneling No -Undermining/Tunneling No -Circular Undermining No -Exudate Amt Large -Exudate Type Serosanguineous -Wound Margin Distinct, Outline Attached -Granulation Amt Medium (34-66%) -Granulation Quality [place] -Slough/Fibrin Yes -Necrosis Amt Medium (34-66%) -Necrotic Tissue Type Adherent Slough -Structure Exposed N/A -Texture (Adrianna-wound Skin Appearance) Assessed, Excoriation -Moisture (Adrinana-wound Skin Appearance) Assessed -Color (Adrianna-wound Skin Appearance) Assessed -Temperature (Adrianna-wound Skin No Abnormality Appearance) (Pt Warm) -Tenderness on Palpation (Adrianna-wound No Skin Appearance) -Ulcer Cleansing Wound Cleanser -Foul Odor after Cleansing No Lower Limb Edema Present Yes Right Calf (cm) 50.5 Right Ankle (cm) 28.5 Left Calf (cm) 54.4 Left Ankle (cm) 30.5 WC - Nurse 2 - General Ulcer CM Notes Start: 08/04/24 10:43 Freq: Status: Active Protocol: Activity Type Activity Date Activity User E-sign Co-sign Detail Recorded Client Recorded Date Recorded By Document 08/04/24 11:56 [id number] 08/04/24 11:58 08/04/24 11:56 Wound Center Nurse 2 #10 Left Allen Cluster -Time 11:56 -Correct Patient Yes -Correct Side, Site, Position Yes -Correct Procedure No -Procedure Performed No -Tunneling No -Undermining/Tunneling No -Circular Undermining No -Wound/Ulcer Outcome Healed- Epithelialized -Ulcer Cleansing Rinsed/ Irrigated with Saline -Foul Odor after Cleansing No -Bioengineered Tissue No -Bleeding Controlled with NA -Wound Comment(s) fluid from leg cultured Pain Scale: 0-10 Numeric Is Patient Pain Free? Yes - Nurse 3 - General Ulcer D/C NN Start: 08/04/24 10:43 Freq: Status: Active Protocol: Activity Type Activity Date Activity User E-sign Co-sign Detail Recorded Client Recorded Date Recorded By Document 08/04/24 12:24 RB [id number] 08/04/24 12:26 RB 08/04/24 12:24 Wound Care Center Nurse 3 #10 Left Allen Cluster -Ulcer Cleansing Rinsed/ Irrigated with Saline -Primary Dressing Applied Optilok 8x12 -Optilok 8x12 1 Adrianna-Wound Care Lotion Right -Lotion applied to leg before Yes compression wrap -Tubular Bandage Double Layer -Size of Tubigrip Used Size F -Size F ($) 2 Left -Lotion applied to leg before No compression wrap -Multi-Layered Wrap Application Unna Boot - Left ($) Treatment Response Procedure Tolerated Well Pain Scale: 0-10 Numeric Is Patient Pain Free? Yes WC - Visit Discharge Discharge Condition Stable Ambulatory Status Ambulatory, Walker Transportation Private Auto Medication Reconcilliation completed & No provided to patient/care provider Clinical Summary of Care Provided Yes Assessment/Plan Assessment/Plan (1) Non-pressure chronic ulcer left lower leg, limited to breakdown skin: CODE(S): L97.921 - Non-pressure chronic ulcer of unspecified part of left lower leg limited to breakdown of skin (2) Venous insufficiency: CODE(S): I87.2 - Venous insufficiency (chronic) (peripheral) (3) Edema of both lower extremities: CODE(S): R60.0 - Localized edema (4) Lymphedema: CODE(S): I89.0 - Lymphedema, not elsewhere classified (5) Essential hypertension: CODE(S): I10 - Essential (primary) hypertension (6) Morbid obesity with BMI of 45.0-49.9, adult: CODE(S): E66.01 - Morbid (severe) obesity due to excess calories; Z68.42 - Body mass index [BMI] 45.0-49.9, adult (7) Venous stasis 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: CODE(S): I83.023 - Varicose veins of left lower extremity with ulcer of ankle; L97.321 - Non-pressure 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 QUALIFIERS: Varicose vein presence: with varicose veins Qualified Code(s): I83.023 - Varicose veins of left lower extremity with ulcer of ankle; L97.321 - Non-pressure 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 (8) Debility: CODE(S): R53.81 - Other malaise (9) Osteoarthritis: CODE(S): M19.90 - Unspecified osteoarthritis, unspecified site QUALIFIERS: Osteoarthritis location: multiple joints Osteoarthritis type: primary Qualified Code(s): M15.9 - Polyosteoarthritis, unspecified (10) COPD (chronic obstructive pulmonary disease): CODE(S): J44.9 - Chronic obstructive pulmonary disease, unspecified QUALIFIERS: COPD type: unspecified COPD Qualified Code(s): J44.9 - Chronic obstructive pulmonary disease, unspecified (11) Chronic hypoxemic respiratory failure: CODE(S): J96.11 - Chronic respiratory failure with hypoxia (12) Pulmonary hypertension: CODE(S): I27.20 - Pulmonary hypertension, unspecified (13) Hypothyroidism: CODE(S): E03.9 - Hypothyroidism, unspecified QUALIFIERS: Hypothyroidism type: unspecified Qualified Code(s): E03.9 - Hypothyroidism, unspecified (14) Type 2 diabetes mellitus: CODE(S): E11.9 - Type 2 diabetes mellitus without complications QUALIFIERS: Diabetes mellitus complication status: with other specified complication Diabetes mellitus jail insulin use: without jail use Qualified Code(s): E11.69 - Type 2 diabetes mellitus with other specified complication (15) DOLORES (obstructive sleep apnea): CODE(S): G47.33 - Obstructive sleep apnea (adult) (pediatric) PLAN: Plan Evaluation and debridement performed today in clinic as annotated above. At home wound-care instructions: Will dress her left lateral left leg with UNNA boot and cover ulcer with Aquacel Ag. Right leg will be compressed with tubigrip. She was instructed to keep dressings clean and dry. Will have her use lymphedema pumps for 60 minutes 2-3 times daily. Off-loading: The patient was instructed to avoid pressure and friction on the affected areas. Reposition every 2 hours at minimum. Avoid prolonged standing and/or dangling of legs. When seated, feet should be elevated at chest level. Frequent ambulation is encouraged. Diet: Patient encouraged to increase protein intake while taking caution to avoid high carbohydrate and/or sugar intake. Encouraged weight loss. Labs/cultures/imaging: Wound Culture of left allen ulcer showed psuedomonas and MRSA. Ciprofloxacin prescribed. Venous ultrasound showed incompetence of veins of left lower extremity and vascular performed an ablation on 07/27/2024. Culture taken today. Will treat based on results. Encouraged her to get her CPAP mask to improve DOLORES and pulmonary HTN treatment compliance which is adding to her decompensated lymphedema. Follow-up: Will have her follow up in 1 week. Return sooner or report to the emergency room should symptoms worsen, or new symptoms arise. Note: [employer] speech recognition metalworking specialist software was used to create portions of this document. Sound-alike and misspelled words, as well as other metalworking specialist errors may be contained in the documentation.
[2024-08-11 10:45] VITALS: BP 157/71; PULSE 69; RESP 18; TEMP 36.4; BMI 49.8
--- NOTE | 2024-08-11 11:36 | PCM.WC.PN ---
History of Present Illness Date of Service: 08/11/24 Chief Complaint: B/L LE ulcers, bilateral lower extremity swelling History of Wound: Liz is a pleasant 74 yo woman that presents to the wound center for bilateral lower extremity edema and blisters and drainage of her bilateral lower extremities. She has had increased edema the last 2 weeks and her legs started seeping a few days ago. She has been wearing her tubigrip compression and had been using the lymphedema pumps until they started seeping fluid. She tries to elevate her legs when she is sitting but is not always consistent with doing this. She has been wrapping her leg with gauze when it is seeping but otherwise has not been doing any regular dressings. Patient has been treated at the wound center in the past for similar wounds, most recently October 2023. She has also been seen in the vascular surgery clinic where she was evaluated her for BLE DVT and venous insufficiency. 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 GSV ablation has been done to her right lower leg. She has received lymphedema pumps that were ordered during her last treatment course and has been using these. Last venous study was 03/2022. Last A1C 01/2023 was 6.4%. Last TSH - 01/2022 Patient's medical history is also significant for CHF, COPD, T2DM, lymphedema. She has a CPAP but has not been using this due to needing a new mask. She states that a prescription was to be sent and she never received the mask. Her current mask has a hole in it. Subjective Subjective Liz returns today for treatment of edema to bilateral lower legs. She underwent venous ablation of left lower leg on 07/27/2024. She has been elevating her legs and using lymphedema pumps as directed. She tolerated UNNA boot compression. She does continue to have drainage from left lateral lower leg and has mild erythema but no obvious ulcer, just skin breakdown. She denies fever, chills. Objective Data Objective Data Vital Signs: Vital Signs Temp Pulse Resp BP Pulse Ox 97.5 F L 69 18 157/71 H 94 08/11/24 10:45 08/11/24 10:45 08/11/24 10:45 08/11/24 10:45 07/22/24 00:50 Weight: 140.16 kg Body Mass Index (BMI) 49.8 Lab / Micro Data Micro: Microbiology 08/04/24 11:55 Wound Drainage - Leg Gram Stain - Final 08/04/24 11:55 Wound Drainage - Leg Wound Culture - Final Pseudomonas aeruginosa Enterococcus faecalis 08/04/24 11:55 Wound Drainage - Leg Anaerobic Culture - Final Anaerobic cocci Physical Exam Const alert, oriented x3, no apparent distress and healthy appearing General Appearance: cooperative; Negative for combative or lethargic Orientation / Consciousness: awake Exam Limitations: no limitations Nutritional Appearance: obese HEENT normocephalic and head/scalp atraumatic Eyes EOMs intact bilaterally General Eye: normal appearance of both eyes Neck full ROM General: trachea midline Lymph Lymphatic: lymphedema severe and pitting Resp normal respiratory effort and no use of accessory muscles Effort and Inspection: Negative for labored, stridor or audible wheezes Cardio regular rate and regular rhythm Back/Spine Cervical Spine: cervical ROM normal Extremity full ROM, normal capillary refill and no clubbing, cyanosis or edema General Extremity: edema bilateral lower extremity Details: severe (with skin changes associated with lymphedema, thickened nodular appearance from mid allen to ankle) Skin no rashes or lesions noted General Skin Exam: erythema, venous stasis and dermatitis Wounds: wounds noted Wound Narrative: as in clinical panel, mildly decreased erythema and light serous drainage from lateral lower leg, nodular appearance of skin associated with lymphedema Neuro oriented x3, CN's II-XII intact bilaterally, no focal motor deficits and no sensory deficits noted Psych thought process normal, cooperative, affect normal, speech normal and activity/motor behavior normal Debridement Note Debridement Note Wound debrided: Left lateral lower leg Laterality: Left No debridement was completed: No debridement was completed today (no slough present just serous drainage, skin weeping) Post-Debridement Measurements and Additional Note: Post-Debridement Measurements/Treatment [id number] - Nurse 1 - General Ulcer Assessment Start: 08/04/24 10:43 Freq: Status: Active Protocol: KELSEY Activity Type Activity Date Activity User E-sign Co-sign Detail Recorded Client Recorded Date Recorded By Document 08/04/24 10:44 RB [id number] 08/04/24 10:46 RB Document 08/11/24 10:45 RB [id number] 08/11/24 10:46 RB 08/04/24 08/11/24 10:44 10:45 - Today's Visit Information Type of service Follow-up Visit Follow-up Visit (Physician/CAT BREEDER (Physician/CAT BREEDER ) ) Arrival Mode Ambulatory, Ambulatory, Walker Walker Transfer Assistance Manual None Patient Identification Verified (Name & Yes Yes ) Patient Requires Transmission-Based No No Precautions Height and Weight Body Mass Index (BMI) 49.8 49.8 BMI Classification Obese Obese Vital Signs Temperature (97.8 F-99.1 F) 96.9 F L 97.5 F L Temperature Source Temporal Temporal Pulse Rate (60-100) 71 69 Pulse Location Monitor Monitor Respiratory Rate (12-18) 18 18 Respiratory rate source Observation Observation Blood Pressure (90/60-120/80) 160/71 H 157/71 H Blood Pressure Mean (mm Hg) 100 99 Source Monitor Monitor Position Semi-Fowlers Semi-Fowlers Blood Pressure Location Left Arm Left Arm History Since Last Visit- (Skip if this is Patient's initial visit) Have you changed medications since your No No last visit? Any new allergies or adverse reactions No No Had a fall/change in ADL's that may No No increase risk of falls Signs or symptoms of abuse and/or No No neglect since last visit Have you been in the hospital since your No No last visit? Has dressing in place as prescribed Yes Yes Has compression in place as prescribed Yes Yes Has offloadiing in place as prescribed N/A N/A Experienced any changes in pain level or No No management Left Footwear Regular Shoe Right Footwear Regular Shoe Pain Scale: 0-10 Numeric Is Patient Pain Free? No Yes BILAT LE -Description Aching -Intensity 4 -Duration (hours) Acute -Pain Behavior Irritability -Pain Aggravating Factors Exercise/ Activity -Alleviating Factors/Interventions Medication -Effectiveness of Alleviating Factor/ Moderately Intervention effective WC - Nurse 1 - General Ulcer Measurement Start: 08/04/24 10:43 Freq: Status: Active Protocol: Activity Type Activity Date Activity User E-sign Co-sign Detail Recorded Client Recorded Date Recorded By Document 08/04/24 10:44 RB [id number] 08/04/24 10:46 RB Document 08/11/24 10:45 RB [id number] 08/11/24 10:46 RB 08/04/24 08/11/24 10:44 10:45 Wound Center Nurse 1 #10 Left Allen Cluster -Combined with other wound No No -Current Size (cm) - Length 0.1 11 -Current Size (cm) - Width 0.1 12 -Current Size (cm) - Depth 0.1 0.1 -Total Square Cm 0.01 132 -Tunneling No No -Undermining/Tunneling No No -Circular Undermining No No -Exudate Amt Large Large -Exudate Type Serosanguineous Serosanguineous -Wound Margin Distinct, Distinct, Outline Outline Attached Attached -Granulation Amt Medium (34-66%) Large (67-100%) -Granulation Quality [place] -Slough/Fibrin Yes Yes -Necrosis Amt Medium (34-66%) Small (1-33%) -Necrotic Tissue Type Adherent Slough Adherent Slough -Structure Exposed N/A N/A -Texture (Adrianna-wound Skin Appearance) Assessed, Excoriation Excoriation -Moisture (Adrianna-wound Skin Appearance) Assessed Maceration -Color (Adrianna-wound Skin Appearance) Assessed Erythema -Temperature (Adrianna-wound Skin No Abnormality No Abnormality Appearance) (Pt Warm) (Pt Warm) -Tenderness on Palpation (Adrianna-wound No No Skin Appearance) -Ulcer Cleansing Wound Cleanser Wound Cleanser -Foul Odor after Cleansing No No -Anesthetic Used 4% Lidocaine Solution Lower Limb Edema Present Yes Yes Right Calf (cm) 50.5 55 Right Ankle (cm) 28.5 30 Left Calf (cm) 54.4 50.3 Left Ankle (cm) 30.5 29 - Nurse 2 - General Ulcer CM Notes Start: 08/04/24 10:43 Freq: Status: Active Protocol: Activity Type Activity Date Activity User E-sign Co-sign Detail Recorded Client Recorded Date Recorded By Document 08/04/24 11:56 [id number] 08/04/24 11:58 Document 08/11/24 11:27 [id number] 08/11/24 11:30 08/04/24 08/11/24 11:56 11:27 Wound Center Nurse 2 #10 Left Allen Cluster -Time 11:56 -Correct Patient Yes -Correct Side, Site, Position Yes -Correct Procedure No -Procedure Performed No -Tunneling No -Undermining/Tunneling No -Circular Undermining No -Wound/Ulcer Outcome Healed- Epithelialized -Ulcer Cleansing Rinsed/ Irrigated with Saline -Foul Odor after Cleansing No -Bioengineered Tissue No -Bleeding Controlled with NA -Wound Comment(s) fluid from leg cultured Pain Scale: 0-10 Numeric Is Patient Pain Free? Yes Yes WC - Nurse 3 - General Ulcer D/C NN Start: 08/04/24 10:43 Freq: Status: Active Protocol: Activity Type Activity Date Activity User E-sign Co-sign Detail Recorded Client Recorded Date Recorded By Document 08/04/24 12:24 RB [id number] 08/04/24 12:26 RB 08/04/24 12:24 Wound Care Center Nurse 3 #10 Left Allen Cluster -Ulcer Cleansing Rinsed/ Irrigated with Saline -Primary Dressing Applied Optilok 8x12 -Optilok 8x12 1 Adrianna-Wound Care Lotion Right -Lotion applied to leg before Yes compression wrap -Tubular Bandage Double Layer -Size of Tubigrip Used Size F -Size F ($) 2 Left -Lotion applied to leg before No compression wrap -Multi-Layered Wrap Application Unna Boot - Left ($) Treatment Response Procedure Tolerated Well Pain Scale: 0-10 Numeric Is Patient Pain Free? Yes WC - Visit Discharge Discharge Condition Stable Ambulatory Status Ambulatory, Walker Transportation Private Auto Medication Reconcilliation completed & No provided to patient/care provider Clinical Summary of Care Provided Yes Assessment/Plan Assessment/Plan (1) Non-pressure chronic ulcer left lower leg, limited to breakdown skin: CODE(S): L97.921 - Non-pressure chronic ulcer of unspecified part of left lower leg limited to breakdown of skin (2) Venous insufficiency: CODE(S): I87.2 - Venous insufficiency (chronic) (peripheral) (3) Edema of both lower extremities: CODE(S): R60.0 - Localized edema (4) Lymphedema: CODE(S): I89.0 - Lymphedema, not elsewhere classified (5) Essential hypertension: CODE(S): I10 - Essential (primary) hypertension (6) Morbid obesity with BMI of 45.0-49.9, adult: CODE(S): E66.01 - Morbid (severe) obesity due to excess calories; Z68.42 - Body mass index [BMI] 45.0-49.9, adult (7) Venous stasis 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: CODE(S): I83.023 - Varicose veins of left lower extremity with ulcer of ankle; L97.321 - Non-pressure 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 QUALIFIERS: Varicose vein presence: with varicose veins Qualified Code(s): I83.023 - Varicose veins of left lower extremity with ulcer of ankle; L97.321 - Non-pressure 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 (8) Debility: CODE(S): R53.81 - Other malaise (9) Osteoarthritis: CODE(S): M19.90 - Unspecified osteoarthritis, unspecified site QUALIFIERS: Osteoarthritis location: multiple joints Osteoarthritis type: primary Qualified Code(s): M15.9 - Polyosteoarthritis, unspecified (10) COPD (chronic obstructive pulmonary disease): CODE(S): J44.9 - Chronic obstructive pulmonary disease, unspecified QUALIFIERS: COPD type: unspecified COPD Qualified Code(s): J44.9 - Chronic obstructive pulmonary disease, unspecified (11) Chronic hypoxemic respiratory failure: CODE(S): J96.11 - Chronic respiratory failure with hypoxia (12) Pulmonary hypertension: CODE(S): I27.20 - Pulmonary hypertension, unspecified (13) Hypothyroidism: CODE(S): E03.9 - Hypothyroidism, unspecified QUALIFIERS: Hypothyroidism type: unspecified Qualified Code(s): E03.9 - Hypothyroidism, unspecified (14) Type 2 diabetes mellitus: CODE(S): E11.9 - Type 2 diabetes mellitus without complications QUALIFIERS: Diabetes mellitus complication status: with other specified complication Diabetes mellitus long-term insulin use: without long-term use Qualified Code(s): E11.69 - Type 2 diabetes mellitus with other specified complication (15) DOLORES (obstructive sleep apnea): CODE(S): G47.33 - Obstructive sleep apnea (adult) (pediatric) PLAN: Plan Evaluation and debridement performed today in clinic as annotated above. At home wound-care instructions: Will dress her left lower leg with Aquacel and UNNA boot. She was instructed to keep dressings clean and dry. Will have her use lymphedema pumps for 60 minutes 2-3 times daily. Off-loading: The patient was instructed to avoid pressure and friction on the affected areas. Reposition every 2 hours at minimum. Avoid prolonged standing and/or dangling of legs. When seated, feet should be elevated at chest level. Frequent ambulation is encouraged. Diet: Patient encouraged to increase protein intake while taking caution to avoid high carbohydrate and/or sugar intake. Encouraged weight loss. Labs/cultures/imaging: Wound Culture of left allen ulcer showed pseudomonas and MRSA. Ciprofloxacin prescribed. Venous ultrasound showed incompetence of veins of left lower extremity and vascular performed an ablation on 07/27/2024. Culture showed E. faecalis, anaerobic bacteria and Pseudomonas. Encouraged her to get her CPAP mask to improve DOLORES and pulmonary HTN treatment compliance which is adding to her decompensated lymphedema. Follow-up: Will have her follow up in 1 week. Return sooner or report to the emergency room should symptoms worsen, or new symptoms arise. Note: [employer] speech recognition screen roller software was used to create portions of this document. Sound-alike and misspelled words, as well as other screen roller errors may be contained in the documentation.
[2024-08-18 09:30] VITALS: BP 149/74; PULSE 83; RESP 18; TEMP 36.4; BMI 49.8
--- NOTE | 2024-08-18 15:16 | PCM.WC.PN ---
History of Present Illness Date of Service: 08/18/24 Chief Complaint: B/L LE ulcers, bilateral lower extremity swelling History of Wound: Liz is a pleasant 74 yo woman that presents to the wound center for bilateral lower extremity edema and blisters and drainage of her bilateral lower extremities. She has had increased edema the last 2 weeks and her legs started seeping a few days ago. She has been wearing her tubigrip compression and had been using the lymphedema pumps until they started seeping fluid. She tries to elevate her legs when she is sitting but is not always consistent with doing this. She has been wrapping her leg with gauze when it is seeping but otherwise has not been doing any regular dressings. Patient has been treated at the wound center in the past for similar wounds, most recently October 2023. She has also been seen in the vascular surgery clinic where she was evaluated her for BLE DVT and venous insufficiency. 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 GSV ablation has been done to her right lower leg. She has received lymphedema pumps that were ordered during her last treatment course and has been using these. Last venous study was 03/2022. Last A1C 01/2023 was 6.4%. Last TSH - 01/2022 Patient's medical history is also significant for CHF, COPD, T2DM, lymphedema. She has a CPAP but has not been using this due to needing a new mask. She states that a prescription was to be sent and she never received the mask. Her current mask has a hole in it. Subjective Subjective Liz returns today for treatment of edema to bilateral lower legs. She underwent venous ablation of left lower leg on 07/27/2024. She has been elevating her legs and using lymphedema pumps as directed. She tolerated UNNA boot compression. She does continue to have drainage from left lateral lower leg and has mild erythema but no obvious ulcer, just skin breakdown. She was unable to tolerate antibiotic that was prescribed last week. She denies fever, chills. Objective Data Objective Data Vital Signs: Vital Signs Temp Pulse Resp BP Pulse Ox O2 Del Method 97.6 F L 83 18 149/74 H 94 Room Air 08/18/24 09:30 08/18/24 09:30 08/18/24 09:30 08/18/24 09:30 07/22/24 00:50 08/18/24 09:30 Oxygen Delivery Method Room Air Weight: 140.16 kg Body Mass Index (BMI) 49.8 Lab / Micro Data Micro: Microbiology 08/04/24 11:55 Wound Drainage - Leg Gram Stain - Final 08/04/24 11:55 Wound Drainage - Leg Wound Culture - Final Pseudomonas aeruginosa Enterococcus faecalis 08/04/24 11:55 Wound Drainage - Leg Anaerobic Culture - Final Anaerobic cocci Physical Exam Const alert, oriented x3, no apparent distress and healthy appearing General Appearance: cooperative; Negative for combative or lethargic Orientation / Consciousness: awake Exam Limitations: no limitations Nutritional Appearance: obese HEENT normocephalic and head/scalp atraumatic Eyes EOMs intact bilaterally General Eye: normal appearance of both eyes Neck full ROM General: trachea midline Lymph Lymphatic: lymphedema severe and pitting Resp normal respiratory effort and no use of accessory muscles Effort and Inspection: Negative for labored, stridor or audible wheezes Cardio regular rate and regular rhythm Back/Spine Cervical Spine: cervical ROM normal Extremity full ROM, normal capillary refill and no clubbing, cyanosis or edema General Extremity: edema bilateral lower extremity Details: severe (with skin changes associated with lymphedema, thickened nodular appearance from mid allen to ankle) Skin no rashes or lesions noted General Skin Exam: erythema, venous stasis and dermatitis Wounds: wounds noted Wound Narrative: as in clinical panel, mildly decreased erythema and light serous drainage from lateral lower leg, nodular appearance of skin associated with lymphedema Neuro oriented x3, CN's II-XII intact bilaterally, no focal motor deficits and no sensory deficits noted Psych thought process normal, cooperative, affect normal, speech normal and activity/motor behavior normal Debridement Note Debridement Note Wound debrided: Left lateral lower leg Laterality: Left No debridement was completed: No debridement was completed today (no slough present just serous drainage, skin weeping) Post-Debridement Measurements and Additional Note: Post-Debridement Measurements/Treatment WC - Nurse 1 - General Ulcer Assessment Start: 08/04/24 10:43 Freq: Status: Active Protocol: KELSEY Activity Type Activity Date Activity User E-sign Co-sign Detail Recorded Client Recorded Date Recorded By Document 08/04/24 10:44 RB [id number] 08/04/24 10:46 RB Document 08/11/24 10:45 RB [id number] 08/11/24 10:46 RB Document 08/18/24 09:30 KW [id number] 08/18/24 09:42 KW 08/04/24 08/11/24 08/18/24 10:44 10:45 09:30 WC - Today's Visit Information Type of service Follow-up Visit Follow-up Visit Follow-up Visit (Physician/CALL CENTER CONSULTANT (Physician/CALL CENTER CONSULTANT (Physician/CALL CENTER CONSULTANT ) ) ) Arrival Mode Ambulatory, Ambulatory, Ambulatory, Walker Walker Walker Transfer Assistance Manual None Accompanied by Patient Identification Verified (Name & Yes Yes Yes ) Patient Requires Transmission-Based No No Precautions Height and Weight Body Mass Index (BMI) 49.8 49.8 49.8 BMI Classification Obese Obese Obese Vital Signs Temperature (97.8 F-99.1 F) 96.9 F L 97.5 F L 97.6 F L Temperature Source Temporal Temporal Temporal Pulse Rate (60-100) 71 69 83 Pulse Location Monitor Monitor Monitor Respiratory Rate (12-18) 18 18 18 Respiratory rate source Observation Observation Observation Oxygen Delivery Method Room Air Blood Pressure (90/60-120/80) 160/71 H 157/71 H 149/74 H Blood Pressure Mean (mm Hg) 100 99 99 Source Monitor Monitor Monitor Position Semi-Fowlers Semi-Fowlers Semi-Fowlers Blood Pressure Location Left Arm Left Arm Left Arm History Since Last Visit- (Skip if this is Patient's initial visit) Have you changed medications since your No No No last visit? Any new allergies or adverse reactions No No No Had a fall/change in ADL's that may No No No increase risk of falls Signs or symptoms of abuse and/or No No No neglect since last visit Have you been in the hospital since your No No No last visit? Has dressing in place as prescribed Yes Yes Yes Has compression in place as prescribed Yes Yes Yes Has offloadiing in place as prescribed N/A N/A N/A Experienced any changes in pain level or No No No management Left Footwear Regular Shoe Regular Shoe Right Footwear Regular Shoe Regular Shoe Pain Scale: 0-10 Numeric Is Patient Pain Free? No Yes Yes BILAT LE -Description Aching -Intensity 4 -Duration (hours) Acute -Pain Behavior Irritability -Pain Aggravating Factors Exercise/ Activity -Alleviating Factors/Interventions Medication -Effectiveness of Alleviating Factor/ Moderately Intervention effective WC - Nurse 1 - General Ulcer Measurement Start: 08/04/24 10:43 Freq: Status: Active Protocol: Activity Type Activity Date Activity User E-sign Co-sign Detail Recorded Client Recorded Date Recorded By Document 08/04/24 10:44 RB [id number] 08/04/24 10:46 RB Document 08/11/24 10:45 RB [id number] 08/11/24 10:46 RB Document 08/18/24 09:30 KW [id number] 08/18/24 09:42 KW 08/04/24 08/11/24 08/18/24 10:44 10:45 09:30 Wound Center Nurse 1 #10 Left Allen Cluster -Combined with other wound No No -Current Size (cm) - Length 0.1 11 -Current Size (cm) - Width 0.1 12 -Current Size (cm) - Depth 0.1 0.1 -Total Square Cm 0.01 132 -Tunneling No No -Undermining/Tunneling No No -Circular Undermining No No -Exudate Amt Large Large -Exudate Type Serosanguineous Serosanguineous -Wound Margin Distinct, Distinct, Outline Outline Attached Attached -Granulation Amt Medium (34-66%) Large (67-100%) -Granulation Quality Blades Blades -Slough/Fibrin Yes Yes -Necrosis Amt Medium (34-66%) Small (1-33%) -Necrotic Tissue Type Adherent Slough Adherent Slough -Structure Exposed N/A N/A -Texture (Adrianna-wound Skin Appearance) Assessed, Excoriation Excoriation -Moisture (Adrianna-wound Skin Appearance) Assessed Maceration -Color (Adrianna-wound Skin Appearance) Assessed Erythema -Temperature (Adrianna-wound Skin No Abnormality No Abnormality Appearance) (Pt Warm) (Pt Warm) -Tenderness on Palpation (Adrianna-wound No No Skin Appearance) -Ulcer Cleansing Wound Cleanser Wound Cleanser -Foul Odor after Cleansing No No -Anesthetic Used 4% Lidocaine Solution #9 Left Lateral Allen -Current Size (cm) - Length 9 -Current Size (cm) - Width 8 -Current Size (cm) - Depth 0.1 -Total Square Cm 72 -Date of Last Picture (Recall this 08/18/24 field) -Exudate Amt Large -Exudate Type Yellow/Green -Wound Margin Distinct, Outline Attached -Granulation Amt Large (67-100%) -Granulation Quality Red -Texture (Adrianna-wound Skin Appearance) Assessed -Moisture (Adrianna-wound Skin Appearance) Assessed, Maceration -Color (Adrianna-wound Skin Appearance) Assessed, Erythema -Temperature (Adrianna-wound Skin No Abnormality Appearance) (Pt Warm) -Tenderness on Palpation (Adrianna-wound No Skin Appearance) -Ulcer Cleansing Soap and Water -Anesthetic Used 5% Lidocaine Gel Lower Limb Edema Present Yes Yes Right Calf (cm) 50.5 55 Right Ankle (cm) 28.5 30 Left Calf (cm) 54.4 50.3 46.6 Left Ankle (cm) 30.5 29 28.3 WC - Nurse 2 - General Ulcer CM Notes Start: 08/04/24 10:43 Freq: Status: Active Protocol: Activity Type Activity Date Activity User E-sign Co-sign Detail Recorded Client Recorded Date Recorded By Document 08/04/24 11:56 [id number] 08/04/24 11:58 Document 08/11/24 11:27 [id number] 08/11/24 11:30 Document 08/18/24 09:54 [id number] 08/18/24 09:58 08/04/24 08/11/24 08/18/24 11:56 11:27 09:54 Wound Center Nurse 2 #10 Left Allen Cluster -Time 11:56 -Correct Patient Yes -Correct Side, Site, Position Yes -Correct Procedure No -Procedure Performed No -Tunneling No -Undermining/Tunneling No -Circular Undermining No -Wound/Ulcer Outcome Healed- Epithelialized -Ulcer Cleansing Rinsed/ Irrigated with Saline -Foul Odor after Cleansing No -Bioengineered Tissue No -Bleeding Controlled with NA -Wound Comment(s) fluid from leg cultured #9 Left Lateral Allen -Time 09:54 -Correct Patient Yes -Correct Side, Site, Position Yes Pain Scale: 0-10 Numeric Is Patient Pain Free? Yes Yes Yes - Nurse 3 - General Ulcer D/C NN Start: 08/04/24 10:43 Freq: Status: Active Protocol: Activity Type Activity Date Activity User E-sign Co-sign Detail Recorded Client Recorded Date Recorded By Document 08/04/24 12:24 RB [id number] 08/04/24 12:26 RB Document 08/11/24 11:58 RB [id number] 08/11/24 12:01 RB Document 08/18/24 10:30 RB [id number] 08/18/24 10:32 RB 08/04/24 08/11/24 08/18/24 12:24 11:58 10:30 Wound Care Center Nurse 3 #10 Left Allen Cluster -Ulcer Cleansing Rinsed/ Irrigated with Saline -Primary Dressing Applied Optilok 8x12 -Optilok 8x12 1 Adrianna-Wound Care Lotion Right -Lotion applied to leg before Yes compression wrap -Tubular Bandage Double Layer -Size of Tubigrip Used Size F -Size F ($) 2 Left -Lotion applied to leg before No compression wrap -Multi-Layered Wrap Application Unna Boot - Left Treatment Response Procedure Tolerated Well Pain Scale: 0-10 Numeric Is Patient Pain Free? Yes Yes Yes Teaching: Wound Center Control Swelling with Leg Elevation -Person Taught Patient -Teaching Method Discussion -Response to teaching Verbalize Understanding Compression Wraps & Stockings -Person Taught Patient, Significant Other -Teaching Method Discussion -Response to teaching Verbalize Understanding WC - Visit Discharge Discharge Condition Stable Stable Stable Ambulatory Status Ambulatory, Ambulatory, Ambulatory, Walker Walker Walker Transportation Private Auto Private Auto Private Auto Accompanied by Medication Reconcilliation completed & No No No provided to patient/care provider Clinical Summary of Care Provided Yes Yes Yes #9 Left Lateral Allen -Ulcer Cleansing Wound Cleanser Rinsed/ Irrigated with Saline -Primary Dressing Applied Aquacel Extra, Optilok 8x12 -Foam Supply Charges Aquacel Extra, Optilok 8x12 -Aquacel Extra 1 -Aquacel Extra 1 -Optilok 8x12 1 -Optilok 8x12 1 Adrianna-Wound Care Lotion Other/Comment RLE LOTION Right -Tubular Bandage Double Layer -Size of Tubigrip Used Size F -Size F ($) 2 Left -Multi-Layered Wrap Application Unna Boot - Left RLE -Tubular Bandage Double Layer -Size of Tubigrip Used Size F -Size F ($) 2 left -Multi-Layered Wrap Application Unna Boot - Left -Unna- Left (Qty applied) 1 Treatment Response Procedure Procedure Tolerated Well Tolerated Well Assessment/Plan Assessment/Plan (1) Non-pressure chronic ulcer left lower leg, limited to breakdown skin: CODE(S): L97.921 - Non-pressure chronic ulcer of unspecified part of left lower leg limited to breakdown of skin (2) Venous insufficiency: CODE(S): I87.2 - Venous insufficiency (chronic) (peripheral) (3) Edema of both lower extremities: CODE(S): R60.0 - Localized edema (4) Lymphedema: CODE(S): I89.0 - Lymphedema, not elsewhere classified (5) Essential hypertension: CODE(S): I10 - Essential (primary) hypertension (6) Morbid obesity with BMI of 45.0-49.9, adult: CODE(S): E66.01 - Morbid (severe) obesity due to excess calories; Z68.42 - Body mass index [BMI] 45.0-49.9, adult (7) Venous stasis 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: CODE(S): I83.023 - Varicose veins of left lower extremity with ulcer of ankle; L97.321 - Non-pressure 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 QUALIFIERS: Varicose vein presence: with varicose veins Qualified Code(s): I83.023 - Varicose veins of left lower extremity with ulcer of ankle; L97.321 - Non-pressure 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 (8) Debility: CODE(S): R53.81 - Other malaise (9) Osteoarthritis: CODE(S): M19.90 - Unspecified osteoarthritis, unspecified site QUALIFIERS: Osteoarthritis location: multiple joints Osteoarthritis type: primary Qualified Code(s): M15.9 - Polyosteoarthritis, unspecified (10) COPD (chronic obstructive pulmonary disease): CODE(S): J44.9 - Chronic obstructive pulmonary disease, unspecified QUALIFIERS: COPD type: unspecified COPD Qualified Code(s): J44.9 - Chronic obstructive pulmonary disease, unspecified (11) Chronic hypoxemic respiratory failure: CODE(S): J96.11 - Chronic respiratory failure with hypoxia (12) Pulmonary hypertension: CODE(S): I27.20 - Pulmonary hypertension, unspecified (13) Hypothyroidism: CODE(S): E03.9 - Hypothyroidism, unspecified QUALIFIERS: Hypothyroidism type: unspecified Qualified Code(s): E03.9 - Hypothyroidism, unspecified (14) Type 2 diabetes mellitus: CODE(S): E11.9 - Type 2 diabetes mellitus without complications QUALIFIERS: Diabetes mellitus fci insulin use: without termite renewal inspector use Diabetes mellitus complication status: with other specified complication Qualified Code(s): E11.69 - Type 2 diabetes mellitus with other specified complication (15) DOLORES (obstructive sleep apnea): CODE(S): G47.33 - Obstructive sleep apnea (adult) (pediatric) PLAN: Plan Evaluation and debridement performed today in clinic as annotated above. At home wound-care instructions: Will dress her left lower leg with Aquacel and UNNA boot. She was instructed to keep dressings clean and dry. Will have her use lymphedema pumps for 60 minutes 2-3 times daily. Off-loading: The patient was instructed to avoid pressure and friction on the affected areas. Reposition every 2 hours at minimum. Avoid prolonged standing and/or dangling of legs. When seated, feet should be elevated at chest level. Frequent ambulation is encouraged. Diet: Patient encouraged to increase protein intake while taking caution to avoid high carbohydrate and/or sugar intake. Encouraged weight loss. Labs/cultures/imaging: Wound Culture of left allen ulcer showed pseudomonas and MRSA. Ciprofloxacin prescribed. Venous ultrasound showed incompetence of veins of left lower extremity and vascular performed an ablation on 07/27/2024. Culture showed E. faecalis, anaerobic bacteria and Pseudomonas advised to restart Ciprofloxacin and Flagyl was prescribed for Anaerobic bacteria. If no improvement, will prescribe Linezolid. Encouraged her to get her CPAP mask to improve DOLORES and pulmonary HTN treatment compliance which is adding to her decompensated lymphedema. Follow-up: Will have her follow up in 1 week. Return sooner or report to the emergency room should symptoms worsen, or new symptoms arise. Note: [employer] speech recognition home visitor home base head start software was used to create portions of this document. Sound-alike and misspelled words, as well as other home visitor home base head start errors may be contained in the documentation.
== END 2024-08-18 23:59 | disposition home or self-care (01) ==
LOC: WC 09:15
PROVIDERS: PCP Internal Medicine; Referring Provider Internal Medicine; Visit Provider Family Medicine
DX: I83.023 Varicose veins of left lower extremity with ulcer of ankle (principal); L97.321 Non-pressure chronic 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; J96.11 Chronic respiratory failure with hypoxia; I50.9 Heart failure, unspecified; I11.0 Hypertensive heart disease with heart failure; I27.20 Pulmonary hypertension, unspecified; J44.9 Chronic obstructive pulmonary disease, unspecified; E66.01 Morbid (severe) obesity due to excess calories; Z68.42 Body mass index [BMI] 45.0-49.9, adult; E11.9 Type 2 diabetes mellitus without complications; I89.0 Lymphedema, not elsewhere classified; E03.9 Hypothyroidism, unspecified; M15.9 Polyosteoarthritis, unspecified; I87.2 Venous insufficiency (chronic) (peripheral); G47.33 Obstructive sleep apnea (adult) (pediatric); M79.89 Other specified soft tissue disorders; Z79.890 Hormone replacement therapy; Z79.899 Other long term (current) drug therapy
CPT/HCPCS: 29580; 87070; 87075; 87077; 87186; 87205; 99213; G0463

== ENCOUNTER → 2024-08-28 | Outpatient (CLI) | payer MEDICARE, MEDICAID, SELFPAY ==
[2024-08-28 13:31] LABS: Absolute Lymphocyte Count 1.25 X10^3/uL (0.83-4.51); Absolute Neutrophil Count 4.6 X10^3/uL (2.0-7.7); Basophil# 0.09 X10^3/uL; Basophil% 1.3 % (0-1); Eosinophils% 4.4 % (0-5); Hematocrit 42.8 % (37-47); Hemoglobin 13.2 g/dL (12.0-15.0); Lymphocyte # 1.25 X10^3/ul (0.83-4.51); Lymphocyte % 18.5 % (19-41); Mean Corp Hgb Conc 30.8 g/dL (32-36); Mean Corpuscular Hgb 25.9 pg (27.0-32.0); Mean Corpuscular Volume 83.9 fL (81-99); Mean Platelet Vol. 9.3 fl (6.2-12.0); Monocyte% 7.4 % (0-10); NRBC Flagged by Analyzer 0 % (0-5); Neutrophil # 4.57 X10^3/uL (2.7-7.7); Neutrophil % 67.7 % (47-70); Platelet Count 251 K/mm3 (150-450); RBC Distribution Width CV 15.1 % (11.6-14.6); RBC Distribution Width SD 45.9 fl (35.1-43.9); White Blood Count 6.8 K/mm3 (4.4-11.0)
[2024-08-28 14:21] LABS: ALB/GLOB Ratio 1.2 RATIO (0.9-2.4); AST(SGOT) 22 U/L (<=31); Alanine Aminotransfer ALT/SGPT 14 U/L (<=34); Albumin, Serum 3.5 g/dL (3.4-4.8); Alkaline Phosphatase 107 U/L (35-104); Anion Gap 10 (5-15); BUN 11 mg/dL (4-19); BUN/Creat Ratio 13.6 RATIO (10-20); Calcium,Total 9.1 mg/dL (7.6-11.0); Carbon Dioxide 27.3 mmol/L (21.0-32.0); Chloride 103 mmol/L (98-108); Creatinine, Serum 0.77 mg/dL (0.70-1.20); EST Glomerular Filtration Rate 80 (>60); Glucose 143 mg/dL (70-99); Magnesium 1.7 mg/dL (1.5-2.2); Potassium 3.7 mmol/L (3.3-5.1); Pro- Brain NATRIURETIC PEPTIDE 78 pg/mL (<=1800); Protein, Total 6.5 g/dL (5.9-8.4); Sodium Level 141 mmol/L (133-145); Total Bilirubin 0.47 mg/dL (0.00-1.30)
== END | disposition home or self-care (01) ==
LOC: LAB 13:08
PROVIDERS: PCP Internal Medicine; Visit Provider Nurse Practitioner Family
DX: R07.9 Chest pain, unspecified (principal); R06.09 Other forms of dyspnea
CPT/HCPCS: 36415; 80053; 83735; 83880; 85025

== ENCOUNTER 2024-09-15 09:30 | Outpatient (RCR) | payer MEDICARE, MEDICAID, SELFPAY ==
[2024-08-19 00:41] VITALS: BP 149/74; PULSE 83; RESP 18; TEMP 36.4; O2SAT 94; BMI 49.8
[2024-08-25 10:40] VITALS: BP 148/68; PULSE 81; RESP 18; TEMP 36.4; BMI 49.8
--- NOTE | 2024-08-25 11:58 | WC ---
pt instructed on dressing change with promogran and bordered foam then tubigrip
--- NOTE | 2024-08-25 13:03 | WC ---
PHOTO 08/25/24
--- NOTE | 2024-08-25 14:59 | PCM.WC.PN ---
History of Present Illness Date of Service: 08/25/24 Chief Complaint: B/L LE ulcers, bilateral lower extremity swelling History of Wound: Liz is a pleasant 74 yo woman that presents to the wound center for bilateral lower extremity edema and blisters and drainage of her bilateral lower extremities. She has had increased edema the last 2 weeks and her legs started seeping a few days ago. She has been wearing her tubigrip compression and had been using the lymphedema pumps until they started seeping fluid. She tries to elevate her legs when she is sitting but is not always consistent with doing this. She has been wrapping her leg with gauze when it is seeping but otherwise has not been doing any regular dressings. Patient has been treated at the wound center in the past for similar wounds, most recently October 2023. She has also been seen in the vascular surgery clinic where she was evaluated her for BLE DVT and venous insufficiency. 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 GSV ablation has been done to her right lower leg. She has received lymphedema pumps that were ordered during her last treatment course and has been using these. Last venous study was 03/2022. Last A1C 01/2023 was 6.4%. Last TSH - 01/2022 Patient's medical history is also significant for CHF, COPD, T2DM, lymphedema. She has a CPAP but has not been using this due to needing a new mask. She states that a prescription was to be sent and she never received the mask. Her current mask has a hole in it. Subjective Subjective Liz returns today for treatment of edema to bilateral lower legs. She underwent venous ablation of left lower leg on 07/27/2024. She has been elevating her legs and using lymphedema pumps as directed. She tolerated UNNA boot compression. She does continue to have drainage from left lateral lower leg and has mild erythema but no obvious ulcer, just skin breakdown. She denies fever, chills. Objective Data Objective Data Vital Signs: Vital Signs Temp Pulse Resp BP Pulse Ox 97.6 F L 81 18 148/68 H 94 08/25/24 10:40 08/25/24 10:40 08/25/24 10:40 08/25/24 10:40 08/19/24 00:41 Weight: 140.16 kg Body Mass Index (BMI) 49.8 Physical Exam Const alert, oriented x3, no apparent distress and healthy appearing General Appearance: cooperative; Negative for combative or lethargic Orientation / Consciousness: awake Exam Limitations: no limitations Nutritional Appearance: obese HEENT normocephalic and head/scalp atraumatic Eyes EOMs intact bilaterally General Eye: normal appearance of both eyes Neck full ROM General: trachea midline Lymph Lymphatic: lymphedema severe and pitting Resp normal respiratory effort and no use of accessory muscles Effort and Inspection: Negative for labored, stridor or audible wheezes Cardio regular rate and regular rhythm Back/Spine Cervical Spine: cervical ROM normal Extremity full ROM, normal capillary refill and no clubbing, cyanosis or edema General Extremity: edema bilateral lower extremity Details: severe (with skin changes associated with lymphedema, thickened nodular appearance from mid allen to ankle) Skin no rashes or lesions noted General Skin Exam: erythema, venous stasis and dermatitis Wounds: wounds noted Wound Narrative: as in clinical panel, mildly decreased erythema and light serous drainage from lateral lower leg, nodular appearance of skin associated with lymphedema Neuro oriented x3, CN's II-XII intact bilaterally, no focal motor deficits and no sensory deficits noted Psych thought process normal, cooperative, affect normal, speech normal and activity/motor behavior normal Debridement Note Debridement Note Wound debrided: Left lateral lower leg Laterality: Left Type of Debridement: Excisional debridement Anesthesia Used: 4% Lidocaine Solution Depth: Down to and including healthy tissue and in the subcutaneous layer Percentage of wound debrided: 100 Instrument Used: 3mm curette Tissue Removed: yellow slough and devitalized tissue Severity: Fat Layer Exposed Amount of bleeding with debridement: Mild Bleeding Controlled with: Compression and gauze Patient tolerated procedure: Patient tolerated procedure well Post-Debridement Measurements and Additional Note: Post-Debridement Measurements/Treatment - Nurse 1 - General Ulcer Assessment Start: 08/25/24 10:40 Freq: Status: Active Protocol: KELSEY Activity Type Activity Date Activity User E-sign Co-sign Detail Recorded Client Recorded Date Recorded By Document 08/25/24 10:40 ROBERT [id number] 08/25/24 11:11 RB 08/25/24 10:40 - Today's Visit Information Type of service Follow-up Visit (Physician/TRACE CLERK ) Arrival Mode Ambulatory, Walker Transfer Assistance None Patient Identification Verified (Name & Yes ) Patient Requires Transmission-Based No Precautions Height and Weight Body Mass Index (BMI) 49.8 BMI Classification Obese Vital Signs Temperature (97.8 F-99.1 F) 97.6 F L Temperature Source Temporal Pulse Rate (60-100) 81 Pulse Location Monitor Respiratory Rate (12-18) 18 Respiratory rate source Observation Blood Pressure (90/60-120/80) 148/68 H Blood Pressure Mean (mm Hg) 94 Source Monitor Position Semi-Fowlers Blood Pressure Location Left Arm History Since Last Visit- (Skip if this is Patient's initial visit) Have you changed medications since your No last visit? Any new allergies or adverse reactions No Had a fall/change in ADL's that may No increase risk of falls Signs or symptoms of abuse and/or No neglect since last visit Have you been in the hospital since your No last visit? Has dressing in place as prescribed Yes Has compression in place as prescribed Yes Has offloadiing in place as prescribed N/A Experienced any changes in pain level or No management Left Footwear Regular Shoe Right Footwear Regular Shoe Pain Scale: 0-10 Numeric Is Patient Pain Free? Yes WC - Nurse 1 - General Ulcer Measurement Start: 08/25/24 10:40 Freq: Status: Active Protocol: Activity Type Activity Date Activity User E-sign Co-sign Detail Recorded Client Recorded Date Recorded By Document 08/25/24 10:40 RB [id number] 08/25/24 11:11 RB Edit Result 08/25/24 10:40 RB (1) [id number] 08/25/24 11:49 RB (1) Left Ankle (cm) => 28.5 08/25/24 10:40 Wound Center Nurse 1 #9 Left Lateral Allen -Combined with other wound No -Current Size (cm) - Length 0.1 -Current Size (cm) - Width 0.1 -Current Size (cm) - Depth 0.1 -Total Square Cm 0.01 -Photo Taken Yes -Tunneling No -Undermining/Tunneling No -Circular Undermining No -Exudate Amt Medium -Exudate Type Serosanguineous -Wound Margin Distinct, Outline Attached -Granulation Amt Large (67-100%) -Granulation Quality [place] -Slough/Fibrin Yes -Necrosis Amt Small (1-33%) -Necrotic Tissue Type Adherent Slough -Structure Exposed N/A -Texture (Adrianna-wound Skin Appearance) Assessed, Excoriation -Moisture (Adrianna-wound Skin Appearance) Weeping -Color (Adrianna-wound Skin Appearance) Assessed -Temperature (Adrianna-wound Skin No Abnormality Appearance) (Pt Warm) -Tenderness on Palpation (Adrianna-wound No Skin Appearance) -Ulcer Cleansing Wound Cleanser -Foul Odor after Cleansing No -Anesthetic Used 5% Lidocaine Gel Lower Limb Edema Present Yes Right Calf (cm) 55 Right Ankle (cm) 32.2 Left Calf (cm) 48 Left Ankle (cm) 28.5 WC - Nurse 2 - General Ulcer CM Notes Start: 08/25/24 10:40 Freq: Status: Active Protocol: Activity Type Activity Date Activity User E-sign Co-sign Detail Recorded Client Recorded Date Recorded By Document 08/25/24 11:15 [id number] 08/25/24 11:20 08/25/24 11:15 Wound Center Nurse 2 #9 Left Lateral Allen -Time 11:15 -Correct Patient Yes -Correct Side, Site, Position Yes -Correct Procedure Yes -Procedure Performed Yes -Type of Procedure Debridement -Clinical Debridement Subcutaneous -Tissue Removed Subcutaneous -Post Debridement (cm) - Length 1.0 -Post Debridement (cm) - Width 2.0 -Post Debridement (cm) - Depth 0.1 -Total Square (Post) (cm) 2.00 -Area of Debridement (cm) - Length 1.0 -Area of Debridement (cm) - Width 2.0 -Total Square (Area) (cm) 2.00 -Tunneling No -Undermining/Tunneling No -Circular Undermining No -Wound/Ulcer Outcome Not Healed -Ulcer Cleansing Rinsed/ Irrigated with Saline -Foul Odor after Cleansing No -Bioengineered Tissue No -Bleeding Controlled with Pressure -Treatment Response Procedure Tolerated Well -Debridement - Subq, 1st 20sq cm Yes Pain Scale: 0-10 Numeric Is Patient Pain Free? Yes WC - Nurse 3 - General Ulcer D/C NN Start: 08/25/24 10:40 Freq: Status: Active Protocol: Activity Type Activity Date Activity User E-sign Co-sign Detail Recorded Client Recorded Date Recorded By Document 08/25/24 11:49 RB [id number] 08/25/24 11:51 RB Document 08/25/24 11:58 RB [id number] 08/25/24 11:59 RB 08/25/24 08/25/24 11:49 11:58 Wound Care Center Nurse 3 #9 Left Lateral Allen -Ulcer Cleansing Wound Cleanser -Primary Dressing Applied Promogran, Silicone Border Foam 6x6 -Promogran 1 -Silicone Border Foam 6x6 1 RLE -Lotion applied to leg before Yes compression wrap -Tubular Bandage Double Layer -Size of Tubigrip Used Size F -Size F ($) 2 left -Lotion applied to leg before Yes compression wrap -Tubular Bandage Double Layer -Size of Tubigrip Used Size F -Size F ($) 2 Treatment Response Procedure Tolerated Well Pain Scale: 0-10 Numeric Is Patient Pain Free? Yes Yes WC - Visit Discharge Discharge Condition Stable Ambulatory Status Ambulatory, Walker Transportation Private Auto Medication Reconcilliation completed & No provided to patient/care provider Clinical Summary of Care Provided Yes 08/25/24 11:58 Wound Center by Zahira Nolasco pt instructed on dressing change with promogran and bordered foam then tubigrip Initialized on 08/25/24 11:58 - END OF NOTE Assessment/Plan Assessment/Plan (1) Non-pressure chronic ulcer left lower leg, limited to breakdown skin: CODE(S): L97.921 - Non-pressure chronic ulcer of unspecified part of left lower leg limited to breakdown of skin (2) Venous insufficiency: CODE(S): I87.2 - Venous insufficiency (chronic) (peripheral) (3) Edema of both lower extremities: CODE(S): R60.0 - Localized edema (4) Lymphedema: CODE(S): I89.0 - Lymphedema, not elsewhere classified (5) Essential hypertension: CODE(S): I10 - Essential (primary) hypertension (6) Morbid obesity with BMI of 45.0-49.9, adult: CODE(S): E66.01 - Morbid (severe) obesity due to excess calories; Z68.42 - Body mass index [BMI] 45.0-49.9, adult (7) Venous stasis 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: CODE(S): I83.023 - Varicose veins of left lower extremity with ulcer of ankle; L97.321 - Non-pressure 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 QUALIFIERS: Varicose vein presence: with varicose veins Qualified Code(s): I83.023 - Varicose veins of left lower extremity with ulcer of ankle; L97.321 - Non-pressure 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 (8) Debility: CODE(S): R53.81 - Other malaise (9) Osteoarthritis: CODE(S): M19.90 - Unspecified osteoarthritis, unspecified site QUALIFIERS: Osteoarthritis location: multiple joints Osteoarthritis type: primary Qualified Code(s): M15.9 - Polyosteoarthritis, unspecified (10) COPD (chronic obstructive pulmonary disease): CODE(S): J44.9 - Chronic obstructive pulmonary disease, unspecified QUALIFIERS: COPD type: unspecified COPD Qualified Code(s): J44.9 - Chronic obstructive pulmonary disease, unspecified (11) Chronic hypoxemic respiratory failure: CODE(S): J96.11 - Chronic respiratory failure with hypoxia (12) Pulmonary hypertension: CODE(S): I27.20 - Pulmonary hypertension, unspecified (13) Hypothyroidism: CODE(S): E03.9 - Hypothyroidism, unspecified QUALIFIERS: Hypothyroidism type: unspecified Qualified Code(s): E03.9 - Hypothyroidism, unspecified (14) Type 2 diabetes mellitus: CODE(S): E11.9 - Type 2 diabetes mellitus without complications QUALIFIERS: Diabetes mellitus senior care insulin use: without senior care use Diabetes mellitus complication status: with other specified complication Qualified Code(s): E11.69 - Type 2 diabetes mellitus with other specified complication (15) DOLORES (obstructive sleep apnea): CODE(S): G47.33 - Obstructive sleep apnea (adult) (pediatric) PLAN: Plan Evaluation and debridement performed today in clinic as annotated above. At home wound-care instructions: Will dress her left lower leg with Promogran and Silicone bordered dressing. She was instructed to keep dressings clean and dry. Will have her use lymphedema pumps for 60 minutes 2-3 times daily. Off-loading: The patient was instructed to avoid pressure and friction on the affected areas. Reposition every 2 hours at minimum. Avoid prolonged standing and/or dangling of legs. When seated, feet should be elevated at chest level. Frequent ambulation is encouraged. Diet: Patient encouraged to increase protein intake while taking caution to avoid high carbohydrate and/or sugar intake. Encouraged weight loss. Labs/cultures/imaging: Wound Culture of left allen ulcer showed pseudomonas and MRSA. Ciprofloxacin prescribed. Venous ultrasound showed incompetence of veins of left lower extremity and vascular performed an ablation on 07/27/2024. Culture showed E. faecalis, anaerobic bacteria and Pseudomonas advised to restart Ciprofloxacin and Flagyl was prescribed for Anaerobic bacteria. If no improvement, will prescribe Linezolid. Encouraged her to get her CPAP mask to improve DOLORES and pulmonary HTN treatment compliance which is adding to her decompensated lymphedema. Follow-up: Will have her follow up in 1 week. Return sooner or report to the emergency room should symptoms worsen, or new symptoms arise. Note: [employer] speech recognition application development project manager software was used to create portions of this document. Sound-alike and misspelled words, as well as other application development project manager errors may be contained in the documentation.
[2024-09-01 09:54] VITALS: BP 170/82; PULSE 81; RESP 18; TEMP 36.1; BMI 49.8
--- NOTE | 2024-09-01 13:32 | PN.PCM_ITS ---
History of Present Illness Date of Service: 09/01/24 Chief Complaint: B/L LE ulcers, bilateral lower extremity swelling History of Wound: Liz is a pleasant 74 yo woman that presents to the wound center for bilateral lower extremity edema and blisters and drainage of her bilateral lower extremities. She has had increased edema the last 2 weeks and her legs started seeping a few days ago. She has been wearing her tubigrip compression and had been using the lymphedema pumps until they started seeping fluid. She tries to elevate her legs when she is sitting but is not always consistent with doing this. She has been wrapping her leg with gauze when it is seeping but otherwise has not been doing any regular dressings. Patient has been treated at the wound center in the past for similar wounds, most recently October 2023. She has also been seen in the vascular surgery clinic where she was evaluated her for BLE DVT and venous insufficiency. 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 GSV ablation has been done to her right lower leg. She has received lymphedema pumps that were ordered during her last treatment course and has been using these. Last venous study was 03/2022. Last A1C 01/2023 was 6.4%. Last TSH - 01/2022 Patient's medical history is also significant for CHF, COPD, T2DM, lymphedema. She has a CPAP but has not been using this due to needing a new mask. She states that a prescription was to be sent and she never received the mask. Her current mask has a hole in it. Subjective Subjective Liz returns today for treatment of edema to bilateral lower legs. She underwent venous ablation of left lower leg on 07/27/2024. She has been elevating her legs and using lymphedema pumps as directed. She tolerated Aquacel but had increased drainage and edema. She does continue to have drainage from left lateral lower leg and has mild erythema but no obvious ulcer, just skin breakdown. She denies fever, chills. Objective Data Objective Data Vital Signs: Vital Signs Temp Pulse Resp BP Pulse Ox O2 Del Method 97.0 F L 81 18 170/82 H 94 Room Air 09/01/24 09:54 09/01/24 09:54 09/01/24 09:54 09/01/24 09:54 08/19/24 00:41 09/01/24 09:54 Oxygen Delivery Method Room Air Weight: 140.16 kg Body Mass Index (BMI) 49.8 Physical Exam Const alert, oriented x3, no apparent distress and healthy appearing General Appearance: cooperative; Negative for combative or lethargic Orientation / Consciousness: awake Exam Limitations: no limitations Nutritional Appearance: obese HEENT normocephalic and head/scalp atraumatic Eyes EOMs intact bilaterally General Eye: normal appearance of both eyes Neck full ROM General: trachea midline Lymph Lymphatic: lymphedema severe and pitting Resp normal respiratory effort and no use of accessory muscles Effort and Inspection: Negative for labored, stridor or audible wheezes Cardio regular rate and regular rhythm Back/Spine Cervical Spine: cervical ROM normal Extremity full ROM, normal capillary refill and no clubbing, cyanosis or edema General Extremity: edema bilateral lower extremity Details: severe (with skin changes associated with lymphedema, thickened nodular appearance from mid allen to ankle) Skin no rashes or lesions noted General Skin Exam: erythema, venous stasis and dermatitis Wounds: wounds noted Wound Narrative: as in clinical panel, mildly decreased erythema and light serous drainage from lateral lower leg, nodular appearance of skin associated with lymphedema Neuro oriented x3, CN's II-XII intact bilaterally, no focal motor deficits and no sensory deficits noted Psych thought process normal, cooperative, affect normal, speech normal and activity/motor behavior normal Debridement Note Debridement Note Wound debrided: Left lateral lower leg Laterality: Left Type of Debridement: Excisional debridement Anesthesia Used: 4% Lidocaine Solution Depth: Down to and including healthy tissue and in the subcutaneous layer Percentage of wound debrided: 100 Instrument Used: 3mm curette Tissue Removed: yellow slough and devitalized tissue Severity: Fat Layer Exposed Amount of bleeding with debridement: Mild Bleeding Controlled with: Compression and gauze Patient tolerated procedure: Patient tolerated procedure well Post-Debridement Measurements and Additional Note: Post-Debridement Measurements/Treatment WC - Nurse 1 - General Ulcer Assessment Start: 08/25/24 10:40 Freq: Status: Active Protocol: KELSEY Activity Type Activity Date Activity User E-sign Co-sign Detail Recorded Client Recorded Date Recorded By Document 08/25/24 10:40 RB [id number] 08/25/24 11:11 RB Document 09/01/24 09:54 KW [id number] 09/01/24 10:01 KW 08/25/24 09/01/24 10:40 09:54 - Today's Visit Information Type of service Follow-up Visit Follow-up Visit (Physician/COMMUNITY AMBASSADOR (Physician/COMMUNITY AMBASSADOR ) ) Arrival Mode Ambulatory, Ambulatory, Walker Walker Transfer Assistance None Patient Identification Verified (Name & Yes Yes ) Patient Requires Transmission-Based No Precautions Height and Weight Body Mass Index (BMI) 49.8 49.8 BMI Classification Obese Obese Vital Signs Temperature (97.8 F-99.1 F) 97.6 F L 97.0 F L Temperature Source Temporal Temporal Pulse Rate (60-100) 81 81 Pulse Location Monitor Monitor Respiratory Rate (12-18) 18 18 Respiratory rate source Observation Observation Oxygen Delivery Method Room Air Blood Pressure (90/60-120/80) 148/68 H 170/82 H Blood Pressure Mean (mm Hg) 94 111 Source Monitor Monitor Position Semi-Fowlers Semi-Fowlers Blood Pressure Location Left Arm Left Arm History Since Last Visit- (Skip if this is Patient's initial visit) Have you changed medications since your No No last visit? Any new allergies or adverse reactions No No Had a fall/change in ADL's that may No No increase risk of falls Signs or symptoms of abuse and/or No No neglect since last visit Have you been in the hospital since your No No last visit? Has dressing in place as prescribed Yes Yes Has compression in place as prescribed Yes Yes Has offloadiing in place as prescribed N/A N/A Experienced any changes in pain level or No No management Left Footwear Regular Shoe Regular Shoe Right Footwear Regular Shoe Regular Shoe Pain Scale: 0-10 Numeric Is Patient Pain Free? Yes Yes - Nurse 1 - General Ulcer Measurement Start: 08/25/24 10:40 Freq: Status: Active Protocol: Activity Type Activity Date Activity User E-sign Co-sign Detail Recorded Client Recorded Date Recorded By Document 08/25/24 10:40 RB [id number] 08/25/24 11:11 RB Edit Result 08/25/24 10:40 RB (1) [id number] 08/25/24 11:49 RB Document 09/01/24 09:54 KW [id number] 09/01/24 10:01 KW (1) Left Ankle (cm) => 28.5 08/25/24 09/01/24 10:40 09:54 Wound Center Nurse 1 #9 Left Lateral Allen -Combined with other wound No -Current Size (cm) - Length 0.1 0.1 -Current Size (cm) - Width 0.1 0.1 -Current Size (cm) - Depth 0.1 0 -Total Square Cm 0.01 0.01 -Date of Last Picture (Recall this 09/01/24 field) -Photo Taken Yes -Tunneling No -Undermining/Tunneling No -Circular Undermining No -Exudate Amt Medium Large -Exudate Type Serosanguineous Serosanguineous -Wound Margin Distinct, Indistinct, Non Outline -Visible Attached -Granulation Amt Large (67-100%) Large (67-100%) -Granulation Quality [place] Red -Slough/Fibrin Yes -Necrosis Amt Small (1-33%) -Necrotic Tissue Type Adherent Slough -Structure Exposed N/A -Texture (Adrianna-wound Skin Appearance) Assessed, Assessed Excoriation -Moisture (Adrianna-wound Skin Appearance) Weeping Assessed -Color (Darianna-wound Skin Appearance) Assessed Assessed, Erythema -Temperature (Adrianna-wound Skin No Abnormality No Abnormality Appearance) (Pt Warm) (Pt Warm) -Tenderness on Palpation (Adrianna-wound No No Skin Appearance) -Ulcer Cleansing Wound Cleanser Rinsed/ Irrigated with Saline -Foul Odor after Cleansing No No -Anesthetic Used 5% Lidocaine 4% Lidocaine Gel Solution,5% Lidocaine Gel Lower Limb Edema Present Yes Right Calf (cm) 55 57.7 Right Ankle (cm) 32.2 31 Left Calf (cm) 48 58.3 Left Ankle (cm) 28.5 31 WC - Nurse 2 - General Ulcer CM Notes Start: 08/25/24 10:40 Freq: Status: Active Protocol: Activity Type Activity Date Activity User E-sign Co-sign Detail Recorded Client Recorded Date Recorded By Document 08/25/24 11:15 [id number] 08/25/24 11:20 Document 09/01/24 10:24 [id number] 09/01/24 10:29 08/25/24 09/01/24 11:15 10:24 Wound Center Nurse 2 #9 Left Lateral Allen -Time 11:15 10:24 -Correct Patient Yes Yes -Correct Side, Site, Position Yes Yes -Correct Procedure Yes No -Procedure Performed Yes No -Type of Procedure Debridement -Clinical Debridement Subcutaneous -Tissue Removed Subcutaneous -Post Debridement (cm) - Length 1.0 0.5 -Post Debridement (cm) - Width 2.0 0.5 -Post Debridement (cm) - Depth 0.1 0.1 -Total Square (Post) (cm) 2.00 0.25 -Area of Debridement (cm) - Length 1.0 -Area of Debridement (cm) - Width 2.0 -Total Square (Area) (cm) 2.00 -Tunneling No No -Undermining/Tunneling No No -Circular Undermining No No -Wound/Ulcer Outcome Not Healed Not Healed -Ulcer Cleansing Rinsed/ Rinsed/ Irrigated with Irrigated with Saline Saline -Foul Odor after Cleansing No No -Bioengineered Tissue No No -Bleeding Controlled with Pressure NA -Treatment Response Procedure Tolerated Well -Offloading No -Debridement - Subq, 1st 20sq cm Yes Pain Scale: 0-10 Numeric Is Patient Pain Free? Yes Yes WC - Nurse 3 - General Ulcer D/C NN Start: 08/25/24 10:40 Freq: Status: Active Protocol: Activity Type Activity Date Activity User E-sign Co-sign Detail Recorded Client Recorded Date Recorded By Document 08/25/24 11:49 RB [id number] 08/25/24 11:51 RB Document 08/25/24 11:58 RB [id number] 08/25/24 11:59 RB Document 09/01/24 10:34 KW [id number] 09/01/24 10:35 KW 08/25/24 08/25/24 09/01/24 11:49 11:58 10:34 Wound Care Center Nurse 3 #9 Left Lateral Allen -Ulcer Cleansing Wound Cleanser -Primary Dressing Applied Promogran, Aquacel Extra, Silicone Border Optilok 6.5x10 Foam 6x6 -Aquacel Extra 1 -Optilok 6.5x10 1 -Promogran 1 -Silicone Border Foam 6x6 1 BLE -Lotion applied to leg before Yes compression wrap -Multi-Layered Wrap Application Unna Boot - Bilateral -Unna- Bilat (Qty applied) 1 RLE -Lotion applied to leg before Yes compression wrap -Tubular Bandage Double Layer -Size of Tubigrip Used Size F -Size F ($) 2 left -Lotion applied to leg before Yes compression wrap -Tubular Bandage Double Layer -Size of Tubigrip Used Size F -Size F ($) 2 Treatment Response Procedure Tolerated Well Pain Scale: 0-10 Numeric Is Patient Pain Free? Yes Yes Yes WC - Visit Discharge Discharge Condition Stable Stable Ambulatory Status Ambulatory, Ambulatory, Walker Walker Transportation Private Auto Private Auto Medication Reconcilliation completed & No No provided to patient/care provider Clinical Summary of Care Provided Yes Yes 08/25/24 11:58 Wound Center by Zahira Nolasco pt instructed on dressing change with promogran and bordered foam then tubigrip Initialized on 08/25/24 11:58 - END OF NOTE Assessment/Plan Assessment/Plan (1) Non-pressure chronic ulcer left lower leg, limited to breakdown skin: CODE(S): L97.921 - Non-pressure chronic ulcer of unspecified part of left lower leg limited to breakdown of skin (2) Venous insufficiency: CODE(S): I87.2 - Venous insufficiency (chronic) (peripheral) (3) Edema of both lower extremities: CODE(S): R60.0 - Localized edema (4) Lymphedema: CODE(S): I89.0 - Lymphedema, not elsewhere classified (5) Essential hypertension: CODE(S): I10 - Essential (primary) hypertension (6) Morbid obesity with BMI of 45.0-49.9, adult: CODE(S): E66.01 - Morbid (severe) obesity due to excess calories; Z68.42 - Body mass index [BMI] 45.0-49.9, adult (7) Venous stasis 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: CODE(S): I83.023 - Varicose veins of left lower extremity with ulcer of ankle; L97.321 - Non-pressure 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 QUALIFIERS: Varicose vein presence: with varicose veins Qualified Code(s): I83.023 - Varicose veins of left lower extremity with ulcer of ankle; L97.321 - Non-pressure 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 (8) Debility: CODE(S): R53.81 - Other malaise (9) Osteoarthritis: CODE(S): M19.90 - Unspecified osteoarthritis, unspecified site QUALIFIERS: Osteoarthritis location: multiple joints Osteoarthritis type: primary Qualified Code(s): M15.9 - Polyosteoarthritis, unspecified (10) COPD (chronic obstructive pulmonary disease): CODE(S): J44.9 - Chronic obstructive pulmonary disease, unspecified QUALIFIERS: COPD type: unspecified COPD Qualified Code(s): J44.9 - Chronic obstructive pulmonary disease, unspecified (11) Chronic hypoxemic respiratory failure: CODE(S): J96.11 - Chronic respiratory failure with hypoxia (12) Pulmonary hypertension: CODE(S): I27.20 - Pulmonary hypertension, unspecified (13) Hypothyroidism: CODE(S): E03.9 - Hypothyroidism, unspecified QUALIFIERS: Hypothyroidism type: unspecified Qualified Code(s): E03.9 - Hypothyroidism, unspecified (14) Type 2 diabetes mellitus: CODE(S): E11.9 - Type 2 diabetes mellitus without complications QUALIFIERS: Diabetes mellitus director long term care insulin use: without correction use Diabetes mellitus complication status: with other specified complication Qualified Code(s): E11.69 - Type 2 diabetes mellitus with other specified complication (15) DOLORES (obstructive sleep apnea): CODE(S): G47.33 - Obstructive sleep apnea (adult) (pediatric) PLAN: Plan Evaluation and debridement performed today in clinic as annotated above. At home wound-care instructions: Will dress her left lower leg with Aquacel and super absorber and UNNA boot. She was instructed to keep dressings clean and dry. Will have her use lymphedema pumps for 60 minutes 2-3 times daily. Off-loading: The patient was instructed to avoid pressure and friction on the affected areas. Reposition every 2 hours at minimum. Avoid prolonged standing and/or dangling of legs. When seated, feet should be elevated at chest level. Frequent ambulation is encouraged. Diet: Patient encouraged to increase protein intake while taking caution to avoid high carbohydrate and/or sugar intake. Encouraged weight loss. Labs/cultures/imaging: Wound Culture of left allen ulcer showed pseudomonas and MRSA. Ciprofloxacin prescribed. Venous ultrasound showed incompetence of veins of left lower extremity and vascular performed an ablation on 07/27/2024. Culture showed E. faecalis, anaerobic bacteria and Pseudomonas advised to restart Ciprofloxacin and Flagyl was prescribed for Anaerobic bacteria. Wound culture taken today. Encouraged her to get her CPAP mask to improve DOLORES and pulmonary HTN treatment compliance which is adding to her decompensated lymphedema. Follow-up: Will have her follow up in 1 week. Return sooner or report to the emergency room should symptoms worsen, or new symptoms arise. Note: [employer] speech recognition servicer software was used to create portions of this document. Sound-alike and misspelled words, as well as other servicer errors may be contained in the documentation.
[2024-09-08 11:01] VITALS: BP 172/87; PULSE 79; RESP 16; TEMP 36.5; BMI 49.8
--- NOTE | 2024-09-08 14:10 | PN.PCM_ITS ---
History of Present Illness Date of Service: 09/08/24 Chief Complaint: B/L LE ulcers, bilateral lower extremity swelling History of Wound: Liz is a pleasant 74 yo woman that presents to the wound center for bilateral lower extremity edema and blisters and drainage of her bilateral lower extremities. She has had increased edema the last 2 weeks and her legs started seeping a few days ago. She has been wearing her tubigrip compression and had been using the lymphedema pumps until they started seeping fluid. She tries to elevate her legs when she is sitting but is not always consistent with doing this. She has been wrapping her leg with gauze when it is seeping but otherwise has not been doing any regular dressings. Patient has been treated at the wound center in the past for similar wounds, most recently October 2023. She has also been seen in the vascular surgery clinic where she was evaluated her for BLE DVT and venous insufficiency. 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 GSV ablation has been done to her right lower leg. She has received lymphedema pumps that were ordered during her last treatment course and has been using these. Last venous study was 03/2022. Last A1C 01/2023 was 6.4%. Last TSH - 01/2022 Patient's medical history is also significant for CHF, COPD, T2DM, lymphedema. She has a CPAP but has not been using this due to needing a new mask. She states that a prescription was to be sent and she never received the mask. Her current mask has a hole in it. Subjective Subjective Liz returns today for treatment of edema to bilateral lower legs. She underwent venous ablation of left lower leg on 07/27/2024. She has been elevating her legs and using lymphedema pumps as directed. She tolerated Aquacel but had increased drainage and edema. She does continue to have drainage from left lateral lower leg and has mild erythema but no obvious ulcer, just skin breakdown. She denies fever, chills. Objective Data Objective Data Vital Signs: Vital Signs Temp Pulse Resp BP Pulse Ox O2 Del Method 97.7 F L 79 16 172/87 H 94 Room Air 09/08/24 11:01 09/08/24 11:01 09/08/24 11:01 09/08/24 11:01 08/19/24 00:41 09/08/24 11:01 Oxygen Delivery Method Room Air Weight: 140.16 kg Body Mass Index (BMI) 49.8 Lab / Micro Data Micro: Microbiology 09/01/24 10:27 Wound - Leg, Left Gram Stain - Final 09/01/24 10:27 Wound - Leg, Left Wound Culture - Final Achromobacter denitrificans Aerococcus viridans. Corynebacterium striatum Staphylococcus epidermidis Staphylococcus simulans 09/01/24 10:27 Wound - Leg, Left Anaerobic Culture - Final No anaerobic bacteria isolated. Physical Exam Const alert, oriented x3, no apparent distress and healthy appearing General Appearance: cooperative; Negative for combative or lethargic Orientation / Consciousness: awake Exam Limitations: no limitations Nutritional Appearance: obese HEENT normocephalic and head/scalp atraumatic Eyes EOMs intact bilaterally General Eye: normal appearance of both eyes Neck full ROM General: trachea midline Lymph Lymphatic: lymphedema severe and pitting Resp normal respiratory effort and no use of accessory muscles Effort and Inspection: Negative for labored, stridor or audible wheezes Cardio regular rate and regular rhythm Back/Spine Cervical Spine: cervical ROM normal Extremity full ROM, normal capillary refill and no clubbing, cyanosis or edema General Extremity: edema bilateral lower extremity Details: severe (with skin changes associated with lymphedema, thickened nodular appearance from mid allen to ankle) Skin no rashes or lesions noted General Skin Exam: erythema, venous stasis and dermatitis Wounds: wounds noted Wound Narrative: as in clinical panel, mildly decreased erythema and light serous drainage from lateral lower leg, nodular appearance of skin associated with lymphedema Neuro oriented x3, CN's II-XII intact bilaterally, no focal motor deficits and no sensory deficits noted Psych thought process normal, cooperative, affect normal, speech normal and activity/motor behavior normal Debridement Note Debridement Note Wound debrided: left lateral leg Laterality: Left Patient tolerated procedure: Patient tolerated procedure well No debridement was completed: No debridement was completed today Post-Debridement Measurements and Additional Note: Post-Debridement Measurements/Treatment WC - Nurse 1 - General Ulcer Assessment Start: 08/25/24 10:40 Freq: Status: Active Protocol: KELSEY Activity Type Activity Date Activity User E-sign Co-sign Detail Recorded Client Recorded Date Recorded By Document 08/25/24 10:40 RB [id number] 08/25/24 11:11 RB Document 09/01/24 09:54 KW [id number] 09/01/24 10:01 KW Document 09/08/24 11:01 KW [id number] 09/08/24 11:15 KW 08/25/24 09/01/24 09/08/24 10:40 09:54 11:01 WC - Today's Visit Information Type of service Follow-up Visit Follow-up Visit Follow-up Visit (Physician/RETAIL SALES ASSOCIATE BILINGUAL (Physician/RETAIL SALES ASSOCIATE BILINGUAL (Physician/RETAIL SALES ASSOCIATE BILINGUAL ) ) ) Arrival Mode Ambulatory, Ambulatory, Ambulatory, Walker Walker Walker Transfer Assistance None Accompanied by Patient Identification Verified (Name & Yes Yes Yes ) Patient Requires Transmission-Based No Precautions Height and Weight Body Mass Index (BMI) 49.8 49.8 49.8 BMI Classification Obese Obese Obese Vital Signs Temperature (97.8 F-99.1 F) 97.6 F L 97.0 F L 97.7 F L Temperature Source Temporal Temporal Temporal Pulse Rate (60-100) 81 81 79 Pulse Location Monitor Monitor Monitor Respiratory Rate (12-18) 18 18 16 Respiratory rate source Observation Observation Observation Oxygen Delivery Method Room Air Room Air Blood Pressure (90/60-120/80) 148/68 H 170/82 H 172/87 H Blood Pressure Mean (mm Hg) 94 111 115 Source Monitor Monitor Monitor Position Semi-Fowlers Semi-Fowlers Semi-Fowlers Blood Pressure Location Left Arm Left Arm Left Arm History Since Last Visit- (Skip if this is Patient's initial visit) Have you changed medications since your No No No last visit? Any new allergies or adverse reactions No No No Had a fall/change in ADL's that may No No No increase risk of falls Signs or symptoms of abuse and/or No No No neglect since last visit Have you been in the hospital since your No No No last visit? Has dressing in place as prescribed Yes Yes Yes Has compression in place as prescribed Yes Yes Yes Has offloadiing in place as prescribed N/A N/A N/A Experienced any changes in pain level or No No No management Left Footwear Regular Shoe Regular Shoe Regular Shoe Right Footwear Regular Shoe Regular Shoe Regular Shoe Pain Scale: 0-10 Numeric Is Patient Pain Free? Yes Yes Yes - Nurse 1 - General Ulcer Measurement Start: 08/25/24 10:40 Freq: Status: Active Protocol: Activity Type Activity Date Activity User E-sign Co-sign Detail Recorded Client Recorded Date Recorded By Document 08/25/24 10:40 RB [id number] 08/25/24 11:11 RB Edit Result 08/25/24 10:40 RB (1) [id number] 08/25/24 11:49 RB Document 09/01/24 09:54 KW [id number] 09/01/24 10:01 KW Document 09/08/24 11:01 KW [id number] 09/08/24 11:15 KW (1) Left Ankle (cm) => 28.5 08/25/24 09/01/24 09/08/24 10:40 09:54 11:01 Wound Center Nurse 1 #9 Left Lateral Allen -Combined with other wound No -Current Size (cm) - Length 0.1 0.1 0.1 -Current Size (cm) - Width 0.1 0.1 0.1 -Current Size (cm) - Depth 0.1 0 0 -Total Square Cm 0.01 0.01 0.01 -Date of Last Picture (Recall this 09/01/24 field) -Photo Taken Yes -Tunneling No -Undermining/Tunneling No -Circular Undermining No -Exudate Amt Medium Large Large -Exudate Type Serosanguineous Serosanguineous Serosanguineous -Wound Margin Distinct, Indistinct, Non Indistinct, Non Outline -Visible -Visible Attached -Granulation Amt Large (67-100%) Large (67-100%) -Granulation Quality Marine Red -Slough/Fibrin Yes -Necrosis Amt Small (1-33%) -Necrotic Tissue Type Adherent Slough -Structure Exposed N/A -Texture (Adrianna-wound Skin Appearance) Assessed, Assessed Assessed Excoriation -Moisture (Adrianna-wound Skin Appearance) Weeping Assessed Assessed, Maceration -Color (Adrianna-wound Skin Appearance) Assessed Assessed, Assessed, Erythema Erythema -Temperature (Adrianna-wound Skin No Abnormality No Abnormality No Abnormality Appearance) (Pt Warm) (Pt Warm) (Pt Warm) -Tenderness on Palpation (Adrianna-wound No No No Skin Appearance) -Ulcer Cleansing Wound Cleanser Rinsed/ Soap and Water Irrigated with Saline -Foul Odor after Cleansing No No -Anesthetic Used 5% Lidocaine 4% Lidocaine Gel Solution,5% Lidocaine Gel Lower Limb Edema Present Yes Right Calf (cm) 55 57.7 50 Right Ankle (cm) 32.2 31 28.2 Left Calf (cm) 48 58.3 53 Left Ankle (cm) 28.5 31 29.7 WC - Nurse 2 - General Ulcer CM Notes Start: 08/25/24 10:40 Freq: Status: Active Protocol: Activity Type Activity Date Activity User E-sign Co-sign Detail Recorded Client Recorded Date Recorded By Document 08/25/24 11:15 [id number] 08/25/24 11:20 Document 09/01/24 10:24 [id number] 09/01/24 10:29 Document 09/08/24 11:48 [id number] 09/08/24 11:49 08/25/24 09/01/24 09/08/24 11:15 10:24 11:48 Wound Center Nurse 2 #9 Left Lateral Allen -Time 11:15 10:24 11:48 -Correct Patient Yes Yes Yes -Correct Side, Site, Position Yes Yes Yes -Correct Procedure Yes No No -Procedure Performed Yes No No -Type of Procedure Debridement -Clinical Debridement Subcutaneous -Tissue Removed Subcutaneous -Post Debridement (cm) - Length 1.0 0.5 -Post Debridement (cm) - Width 2.0 0.5 -Post Debridement (cm) - Depth 0.1 0.1 -Total Square (Post) (cm) 2.00 0.25 -Area of Debridement (cm) - Length 1.0 -Area of Debridement (cm) - Width 2.0 -Total Square (Area) (cm) 2.00 -Tunneling No No No -Undermining/Tunneling No No No -Circular Undermining No No No -Wound/Ulcer Outcome Not Healed Not Healed Healed- Epithelialized -Ulcer Cleansing Rinsed/ Rinsed/ Not Cleansed Irrigated with Irrigated with Saline Saline -Foul Odor after Cleansing No No No -Bioengineered Tissue No No -Bleeding Controlled with Pressure NA NA -Treatment Response Procedure Tolerated Well -Offloading No -Debridement - Subq, 1st 20sq cm Yes Pain Scale: 0-10 Numeric Is Patient Pain Free? Yes Yes Yes WC - Nurse 3 - General Ulcer D/C NN Start: 08/25/24 10:40 Freq: Status: Active Protocol: Activity Type Activity Date Activity User E-sign Co-sign Detail Recorded Client Recorded Date Recorded By Document 08/25/24 11:49 RB [id number] 08/25/24 11:51 RB Document 08/25/24 11:58 RB [id number] 08/25/24 11:59 RB Document 09/01/24 10:34 KW [id number] 09/01/24 10:35 KW Document 09/08/24 12:08 KW [id number] 09/08/24 12:08 KW 08/25/24 08/25/24 09/01/24 11:49 11:58 10:34 Wound Care Center Nurse 3 #9 Left Lateral Allen -Ulcer Cleansing Wound Cleanser -Primary Dressing Applied Promogran, Aquacel Extra, Silicone Border Optilok 6.5x10 Foam 6x6 -Primary Dressing Covered/Secured with -Aquacel Extra 1 -Optilok 5x5 1/2 -Optilok 6.5x10 1 -Promogran 1 -Silicone Border Foam 6x6 1 BLE -Lotion applied to leg before Yes compression wrap -Multi-Layered Wrap Application Unna Boot - Bilateral -Unna- Bilat (Qty applied) 1 RLE -Lotion applied to leg before Yes compression wrap -Tubular Bandage Double Layer -Size of Tubigrip Used Size F -Size F ($) 2 lle -Lotion applied to leg before Yes compression wrap -Tubular Bandage Double Layer -Size of Tubigrip Used Size F -Size F ($) 2 Treatment Response Procedure Tolerated Well Pain Scale: 0-10 Numeric Is Patient Pain Free? Yes Yes Yes WC - Visit Discharge Discharge Condition Stable Stable Ambulatory Status Ambulatory, Ambulatory, Walker Walker Transportation Private Auto Private Auto Medication Reconcilliation completed & No No provided to patient/care provider Clinical Summary of Care Provided Yes Yes 09/08/24 12:08 Wound Care Center Nurse 3 #9 Left Lateral Allen -Ulcer Cleansing -Primary Dressing Applied Aquacel Extra, Optilok 5x5 1/2 -Primary Dressing Covered/Secured with Dry Gauze & Roll Gauze, Secured with Tape -Aquacel Extra 1 -Optilok 5x5 1/2 1 -Optilok 6.5x10 -Promogran -Silicone Border Foam 6x6 BLE -Lotion applied to leg before compression wrap -Multi-Layered Wrap Application -Unna- Bilat (Qty applied) RLE -Lotion applied to leg before compression wrap -Tubular Bandage Double Layer -Size of Tubigrip Used Size F -Size F ($) 2 lle -Lotion applied to leg before compression wrap -Tubular Bandage Double Layer -Size of Tubigrip Used Size F -Size F ($) 2 Treatment Response Pain Scale: 0-10 Numeric Is Patient Pain Free? Yes WC - Visit Discharge Discharge Condition Stable Ambulatory Status Ambulatory Transportation Private Auto Medication Reconcilliation completed & No provided to patient/care provider Clinical Summary of Care Provided Yes 08/25/24 11:58 Wound Center by Zahira Nolasco pt instructed on dressing change with promogran and bordered foam then tubigrip Initialized on 08/25/24 11:58 - END OF NOTE Assessment/Plan Assessment/Plan (1) Non-pressure chronic ulcer left lower leg, limited to breakdown skin: CODE(S): L97.921 - Non-pressure chronic ulcer of unspecified part of left lower leg limited to breakdown of skin (2) Venous insufficiency: CODE(S): I87.2 - Venous insufficiency (chronic) (peripheral) (3) Edema of both lower extremities: CODE(S): R60.0 - Localized edema (4) Lymphedema: CODE(S): I89.0 - Lymphedema, not elsewhere classified (5) Essential hypertension: CODE(S): I10 - Essential (primary) hypertension (6) Morbid obesity with BMI of 45.0-49.9, adult: CODE(S): E66.01 - Morbid (severe) obesity due to excess calories; Z68.42 - Body mass index [BMI] 45.0-49.9, adult (7) Venous stasis 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: CODE(S): I83.023 - Varicose veins of left lower extremity with ulcer of ankle; L97.321 - Non-pressure 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 QUALIFIERS: Varicose vein presence: with varicose veins Qualified Code(s): I83.023 - Varicose veins of left lower extremity with ulcer of ankle; L97.321 - Non-pressure 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 (8) Debility: CODE(S): R53.81 - Other malaise (9) Osteoarthritis: CODE(S): M19.90 - Unspecified osteoarthritis, unspecified site QUALIFIERS: Osteoarthritis location: multiple joints Osteoarthritis type: primary Qualified Code(s): M15.9 - Polyosteoarthritis, unspecified (10) COPD (chronic obstructive pulmonary disease): CODE(S): J44.9 - Chronic obstructive pulmonary disease, unspecified QUALIFIERS: COPD type: unspecified COPD Qualified Code(s): J44.9 - Chronic obstructive pulmonary disease, unspecified (11) Chronic hypoxemic respiratory failure: CODE(S): J96.11 - Chronic respiratory failure with hypoxia (12) Pulmonary hypertension: CODE(S): I27.20 - Pulmonary hypertension, unspecified (13) Hypothyroidism: CODE(S): E03.9 - Hypothyroidism, unspecified QUALIFIERS: Hypothyroidism type: unspecified Qualified Code(s): E03.9 - Hypothyroidism, unspecified (14) Type 2 diabetes mellitus: CODE(S): E11.9 - Type 2 diabetes mellitus without complications QUALIFIERS: Diabetes mellitus complication status: with other specified complication Diabetes mellitus ferry terminal agent insulin use: without ferry terminal agent use Qualified Code(s): E11.69 - Type 2 diabetes mellitus with other specified complication (15) DOLORES (obstructive sleep apnea): CODE(S): G47.33 - Obstructive sleep apnea (adult) (pediatric) PLAN: Plan Evaluation and debridement performed today in clinic as annotated above. At home wound-care instructions: Will dress her left lower leg with Aquacel and super absorber and roll gauze changed daily for heavy drainage. She was instructed to keep dressings clean and dry. Will have her use lymphedema pumps for 60 minutes 2-3 times daily. Off-loading: The patient was instructed to avoid pressure and friction on the affected areas. Reposition every 2 hours at minimum. Avoid prolonged standing and/or dangling of legs. When seated, feet should be elevated at chest level. Frequent ambulation is encouraged. Diet: Patient encouraged to increase protein intake while taking caution to avoid high carbohydrate and/or sugar intake. Encouraged weight loss. Labs/cultures/imaging: Wound Culture of left allen ulcer showed pseudomonas and MRSA. Ciprofloxacin prescribed. Venous ultrasound showed incompetence of veins of left lower extremity and vascular performed an ablation on 07/27/2024. Culture showed E. faecalis, anaerobic bacteria and Pseudomonas advised to restart Ciprofloxacin and Flagyl was prescribed for Anaerobic bacteria. 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 She has been referred to infectious disease and they will see her 09/27/2024. We are going to try treating her with Bactrim DS. Encouraged her to get her CPAP mask to improve DOLORES and pulmonary HTN treatment compliance which is adding to her decompensated lymphedema. Follow-up: Will have her follow up in 1 week. Return sooner or report to the emergency room should symptoms worsen, or new symptoms arise. Note: [employer] speech recognition fuel distribution system operator software was used to create portions of this document. Sound-alike and misspelled words, as well as other fuel distribution system operator errors may be contained in the documentation.
[2024-09-15 09:38] VITALS: BP 140/60; PULSE 74; RESP 18; TEMP 36.4; BMI 49.8
--- NOTE | 2024-09-15 10:20 | PCM.WC.PN ---
History of Present Illness Date of Service: 09/15/24 Chief Complaint: Left LE ulcer, bilateral lower extremity swelling History of Wound: Liz is a pleasant 74 yo woman that presents to the wound center for bilateral lower extremity edema and blisters and drainage of her bilateral lower extremities. She has had increased edema the last 2 weeks and her legs started seeping a few days ago. She has been wearing her tubigrip compression and had been using the lymphedema pumps until they started seeping fluid. She tries to elevate her legs when she is sitting but is not always consistent with doing this. She has been wrapping her leg with gauze when it is seeping but otherwise has not been doing any regular dressings. Patient has been treated at the wound center in the past for similar wounds, most recently October 2023. She has also been seen in the vascular surgery clinic where she was evaluated her for BLE DVT and venous insufficiency. 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 GSV ablation has been done to her right lower leg. She has received lymphedema pumps that were ordered during her last treatment course and has been using these. Last venous study was 03/2022. Last A1C 01/2023 was 6.4%. Last TSH - 01/2022 Patient's medical history is also significant for CHF, COPD, T2DM, lymphedema. She has a CPAP but has not been using this due to needing a new mask. She states that a prescription was to be sent and she never received the mask. Her current mask has a hole in it. Subjective Subjective Liz returns today for treatment of edema to bilateral lower legs. She underwent venous ablation of left lower leg on 07/27/2024. She has been elevating her legs and using lymphedema pumps as directed. She tolerated Aquacel but had increased drainage and edema. She does continue to have drainage from left lateral lower leg and has mild erythema but no obvious ulcer, just skin breakdown. She denies fever, chills. Objective Data Objective Data Vital Signs: Vital Signs Temp Pulse Resp BP Pulse Ox O2 Del Method 97.5 F L 74 18 140/60 H 94 Room Air 09/15/24 09:38 09/15/24 09:38 09/15/24 09:38 09/15/24 09:38 08/19/24 00:41 09/08/24 11:01 Oxygen Delivery Method Room Air Weight: 140.16 kg Body Mass Index (BMI) 49.8 Lab / Micro Data Micro: Microbiology 09/01/24 10:27 Wound - Leg, Left Gram Stain - Final 09/01/24 10:27 Wound - Leg, Left Wound Culture - Final Achromobacter denitrificans Aerococcus viridans. Corynebacterium striatum Staphylococcus epidermidis Staphylococcus simulans 09/01/24 10:27 Wound - Leg, Left Anaerobic Culture - Final No anaerobic bacteria isolated. Physical Exam Const alert, oriented x3, no apparent distress and healthy appearing General Appearance: cooperative; Negative for combative or lethargic Orientation / Consciousness: awake Exam Limitations: no limitations Nutritional Appearance: obese HEENT normocephalic and head/scalp atraumatic Eyes EOMs intact bilaterally General Eye: normal appearance of both eyes Neck full ROM General: trachea midline Lymph Lymphatic: lymphedema severe and pitting Resp normal respiratory effort and no use of accessory muscles Effort and Inspection: Negative for labored, stridor or audible wheezes Cardio regular rate and regular rhythm Back/Spine Cervical Spine: cervical ROM normal Extremity full ROM, normal capillary refill and no clubbing, cyanosis or edema General Extremity: edema bilateral lower extremity Details: severe (with skin changes associated with lymphedema, thickened nodular appearance from mid allen to ankle) Skin no rashes or lesions noted General Skin Exam: erythema, venous stasis and dermatitis Wounds: wounds noted Wound Narrative: as in clinical panel, mildly decreased erythema and light serous drainage from lateral lower leg, nodular appearance of skin associated with lymphedema Neuro oriented x3, CN's II-XII intact bilaterally, no focal motor deficits and no sensory deficits noted Psych thought process normal, cooperative, affect normal, speech normal and activity/motor behavior normal Debridement Note Debridement Note Wound debrided: left lateral leg Laterality: Left Type of Debridement: Selective debridement Anesthesia Used: 5% Lidocaine Gel Depth: Down to and including healthy tissue Percentage of wound debrided: 100 Instrument Used: 3mm curette Tissue Removed: Yellow slough, devitalized tissue Severity: Limited To Skin Breakdown Amount of bleeding with debridement: None Patient tolerated procedure: Patient tolerated procedure well Post-Debridement Measurements and Additional Note: Post-Debridement Measurements/Treatment [id number] - Nurse 1 - General Ulcer Assessment Start: 08/25/24 10:40 Freq: Status: Active Protocol: WC.LOWEXT Activity Type Activity Date Activity User E-sign Co-sign Detail Recorded Client Recorded Date Recorded By Document 08/25/24 10:40 RB [id number] 08/25/24 11:11 RB Document 09/01/24 09:54 KW [id number] 09/01/24 10:01 KW Document 09/08/24 11:01 KW [id number] 09/08/24 11:15 KW Document 09/15/24 09:38 RB [id number] 09/15/24 09:44 RB 08/25/24 09/01/24 09/08/24 10:40 09:54 11:01 WC - Today's Visit Information Type of service Follow-up Visit Follow-up Visit Follow-up Visit (Physician/SPANISH MEDICAL INTERPRETER (Physician/SPANISH MEDICAL INTERPRETER (Physician/SPANISH MEDICAL INTERPRETER ) ) ) Arrival Mode Ambulatory, Ambulatory, Ambulatory, Walker Walker Walker Transfer Assistance None Accompanied by Patient Identification Verified (Name & Yes Yes Yes ) Patient Requires Transmission-Based No Precautions Height and Weight Body Mass Index (BMI) 49.8 49.8 49.8 BMI Classification Obese Obese Obese Vital Signs Temperature (97.8 F-99.1 F) 97.6 F L 97.0 F L 97.7 F L Temperature Source Temporal Temporal Temporal Pulse Rate (60-100) 81 81 79 Pulse Location Monitor Monitor Monitor Respiratory Rate (12-18) 18 18 16 Respiratory rate source Observation Observation Observation Oxygen Delivery Method Room Air Room Air Blood Pressure (90/60-120/80) 148/68 H 170/82 H 172/87 H Blood Pressure Mean (mm Hg) 94 111 115 Source Monitor Monitor Monitor Position Semi-Fowlers Semi-Fowlers Semi-Fowlers Blood Pressure Location Left Arm Left Arm Left Arm History Since Last Visit- (Skip if this is Patient's initial visit) Have you changed medications since your No No No last visit? Any new allergies or adverse reactions No No No Had a fall/change in ADL's that may No No No increase risk of falls Signs or symptoms of abuse and/or No No No neglect since last visit Have you been in the hospital since your No No No last visit? Has dressing in place as prescribed Yes Yes Yes Has compression in place as prescribed Yes Yes Yes Has offloadiing in place as prescribed N/A N/A N/A Experienced any changes in pain level or No No No management Left Footwear Regular Shoe Regular Shoe Regular Shoe Right Footwear Regular Shoe Regular Shoe Regular Shoe Pain Scale: 0-10 Numeric Is Patient Pain Free? Yes Yes Yes 09/15/24 09:38 WC - Today's Visit Information Type of service Follow-up Visit (Physician/SPANISH MEDICAL INTERPRETER ) Arrival Mode Ambulatory, Walker Transfer Assistance None Accompanied by Patient Identification Verified (Name & Yes ) Patient Requires Transmission-Based No Precautions Height and Weight Body Mass Index (BMI) 49.8 BMI Classification Obese Vital Signs Temperature (97.8 F-99.1 F) 97.5 F L Temperature Source Temporal Pulse Rate (60-100) 74 Pulse Location Monitor Respiratory Rate (12-18) 18 Respiratory rate source Observation Oxygen Delivery Method Blood Pressure (90/60-120/80) 140/60 H Blood Pressure Mean (mm Hg) 86 Source Monitor Position Sitting Blood Pressure Location Left Arm History Since Last Visit- (Skip if this is Patient's initial visit) Have you changed medications since your No last visit? Any new allergies or adverse reactions No Had a fall/change in ADL's that may No increase risk of falls Signs or symptoms of abuse and/or No neglect since last visit Have you been in the hospital since your No last visit? Has dressing in place as prescribed Yes Has compression in place as prescribed Yes Has offloadiing in place as prescribed N/A Experienced any changes in pain level or No management Left Footwear Regular Shoe Right Footwear Regular Shoe Pain Scale: 0-10 Numeric Is Patient Pain Free? Yes - Nurse 1 - General Ulcer Measurement Start: 08/25/24 10:40 Freq: Status: Active Protocol: Activity Type Activity Date Activity User E-sign Co-sign Detail Recorded Client Recorded Date Recorded By Document 08/25/24 10:40 RB [id number] 08/25/24 11:11 RB Edit Result 08/25/24 10:40 RB (1) [id number] 08/25/24 11:49 RB Document 09/01/24 09:54 KW [id number] 09/01/24 10:01 KW Document 09/08/24 11:01 KW [id number] 09/08/24 11:15 KW Document 09/15/24 09:38 RB [id number] 09/15/24 09:44 RB (1) Left Ankle (cm) => 28.5 08/25/24 09/01/24 09/08/24 10:40 09:54 11:01 Wound Center Nurse 1 #9 Left Lateral Allen -Combined with other wound No -Current Size (cm) - Length 0.1 0.1 0.1 -Current Size (cm) - Width 0.1 0.1 0.1 -Current Size (cm) - Depth 0.1 0 0 -Total Square Cm 0.01 0.01 0.01 -Date of Last Picture (Recall this 09/01/24 field) -Photo Taken Yes -Tunneling No -Undermining/Tunneling No -Circular Undermining No -Exudate Amt Medium Large Large -Exudate Type Serosanguineous Serosanguineous Serosanguineous -Wound Margin Distinct, Indistinct, Non Indistinct, Non Outline -Visible -Visible Attached -Granulation Amt Large (67-100%) Large (67-100%) -Granulation Quality [place] Red -Slough/Fibrin Yes -Necrosis Amt Small (1-33%) -Necrotic Tissue Type Adherent Slough -Structure Exposed N/A -Texture (Adrianna-wound Skin Appearance) Assessed, Assessed Assessed Excoriation -Moisture (Adrianna-wound Skin Appearance) Weeping Assessed Assessed, Maceration -Color (Adrianna-wound Skin Appearance) Assessed Assessed, Assessed, Erythema Erythema -Temperature (Adrianna-wound Skin No Abnormality No Abnormality No Abnormality Appearance) (Pt Warm) (Pt Warm) (Pt Warm) -Tenderness on Palpation (Adrianna-wound No No No Skin Appearance) -Ulcer Cleansing Wound Cleanser Rinsed/ Soap and Water Irrigated with Saline -Foul Odor after Cleansing No No -Anesthetic Used 5% Lidocaine 4% Lidocaine Gel Solution,5% Lidocaine Gel Lower Limb Edema Present Yes Right Calf (cm) 55 57.7 50 Right Ankle (cm) 32.2 31 28.2 Left Calf (cm) 48 58.3 53 Left Ankle (cm) 28.5 31 29.7 09/15/24 09:38 Wound Center Nurse 1 #9 Left Lateral Allen -Combined with other wound No -Current Size (cm) - Length 0.1 -Current Size (cm) - Width 0.1 -Current Size (cm) - Depth 0.1 -Total Square Cm 0.01 -Date of Last Picture (Recall this field) -Photo Taken Yes -Tunneling No -Undermining/Tunneling No -Circular Undermining No -Exudate Amt Large -Exudate Type Serosanguineous -Wound Margin Distinct, Outline Attached -Granulation Amt Large (67-100%) -Granulation Quality [place] -Slough/Fibrin Yes -Necrosis Amt Small (1-33%) -Necrotic Tissue Type Adherent Slough -Structure Exposed N/A -Texture (Adrianna-wound Skin Appearance) Localized Edema -Moisture (Adrianna-wound Skin Appearance) Weeping -Color (Adrianna-wound Skin Appearance) Assessed -Temperature (Adrianna-wound Skin No Abnormality Appearance) (Pt Warm) -Tenderness on Palpation (Adrianna-wound No Skin Appearance) -Ulcer Cleansing Wound Cleanser -Foul Odor after Cleansing No -Anesthetic Used 5% Lidocaine Gel Lower Limb Edema Present Yes Right Calf (cm) 58.5 Right Ankle (cm) 30.5 Left Calf (cm) 57.5 Left Ankle (cm) 29.5 WC - Nurse 2 - General Ulcer CM Notes Start: 08/25/24 10:40 Freq: Status: Active Protocol: Activity Type Activity Date Activity User E-sign Co-sign Detail Recorded Client Recorded Date Recorded By Document 08/25/24 11:15 [id number] 08/25/24 11:20 GM Document 09/01/24 10:24 GM [id number] 09/01/24 10:29 GM Document 09/08/24 11:48 GM [id number] 09/08/24 11:49 GM Document 09/15/24 09:55 DS [id number] 09/15/24 09:57 DS 08/25/24 09/01/24 09/08/24 11:15 10:24 11:48 Wound Center Nurse 2 #9 Left Lateral Allen -Time 11:15 10:24 11:48 -Correct Patient Yes Yes Yes -Correct Side, Site, Position Yes Yes Yes -Correct Procedure Yes No No -Procedure Performed Yes No No -Type of Procedure Debridement -Clinical Debridement Subcutaneous -Tissue Removed Subcutaneous -Post Debridement (cm) - Length 1.0 0.5 -Post Debridement (cm) - Width 2.0 0.5 -Post Debridement (cm) - Depth 0.1 0.1 -Total Square (Post) (cm) 2.00 0.25 -Area of Debridement (cm) - Length 1.0 -Area of Debridement (cm) - Width 2.0 -Total Square (Area) (cm) 2.00 -Tunneling No No No -Undermining/Tunneling No No No -Circular Undermining No No No -Wound/Ulcer Outcome Not Healed Not Healed Healed- Epithelialized -Ulcer Cleansing Rinsed/ Rinsed/ Not Cleansed Irrigated with Irrigated with Saline Saline -Foul Odor after Cleansing No No No -Bioengineered Tissue No No -Bleeding Controlled with Pressure NA NA -Treatment Response Procedure Tolerated Well -Offloading No -Debridement - Open, 1st 20sq cm -Debridement - Subq, 1st 20sq cm Yes Pain Scale: 0-10 Numeric Is Patient Pain Free? Yes Yes Yes 09/15/24 09:55 Wound Center Nurse 2 #9 Left Lateral Allen -Time 09:55 -Correct Patient Yes -Correct Side, Site, Position Yes -Correct Procedure Yes -Procedure Performed Yes -Type of Procedure Debridement -Clinical Debridement Epidermis / Dermis -Tissue Removed Epidermis, Dermis -Post Debridement (cm) - Length 0.2 -Post Debridement (cm) - Width 0.2 -Post Debridement (cm) - Depth 0.1 -Total Square (Post) (cm) 0.04 -Area of Debridement (cm) - Length 0.2 -Area of Debridement (cm) - Width 0.2 -Total Square (Area) (cm) 0.04 -Tunneling No -Undermining/Tunneling No -Circular Undermining No -Wound/Ulcer Outcome Not Healed -Ulcer Cleansing Rinsed/ Irrigated with Saline -Foul Odor after Cleansing No -Bioengineered Tissue No -Bleeding Controlled with Pressure -Treatment Response Procedure Tolerated Well -Offloading -Debridement - Open, 1st 20sq cm Yes -Debridement - Subq, 1st 20sq cm Pain Scale: 0-10 Numeric Is Patient Pain Free? Yes - Nurse 3 - General Ulcer D/C NN Start: 08/25/24 10:40 Freq: Status: Active Protocol: Activity Type Activity Date Activity User E-sign Co-sign Detail Recorded Client Recorded Date Recorded By Document 08/25/24 11:49 RB [id number] 08/25/24 11:51 RB Document 08/25/24 11:58 RB [id number] 08/25/24 11:59 RB Document 09/01/24 10:34 KW [id number] 09/01/24 10:35 KW Document 09/08/24 12:08 KW [id number] 09/08/24 12:08 KW 08/25/24 08/25/24 09/01/24 11:49 11:58 10:34 Wound Care Center Nurse 3 #9 Left Lateral Allen -Ulcer Cleansing Wound Cleanser -Primary Dressing Applied Promogran, Aquacel Extra, Silicone Border Optilok 6.5x10 Foam 6x6 -Primary Dressing Covered/Secured with -Aquacel Extra 1 -Optilok 5x5 1/2 -Optilok 6.5x10 1 -Promogran 1 -Silicone Border Foam 6x6 1 BLE -Lotion applied to leg before Yes compression wrap -Multi-Layered Wrap Application Unna Boot - Bilateral -Unna- Bilat (Qty applied) 1 RLE -Lotion applied to leg before Yes compression wrap -Tubular Bandage Double Layer -Size of Tubigrip Used Size F -Size F ($) 2 lle -Lotion applied to leg before Yes compression wrap -Tubular Bandage Double Layer -Size of Tubigrip Used Size F -Size F ($) 2 Treatment Response Procedure Tolerated Well Pain Scale: 0-10 Numeric Is Patient Pain Free? Yes Yes Yes WC - Visit Discharge Discharge Condition Stable Stable Ambulatory Status Ambulatory, Ambulatory, Walker Walker Transportation Private Auto Private Auto Medication Reconcilliation completed & No No provided to patient/care provider Clinical Summary of Care Provided Yes Yes 09/08/24 12:08 Wound Care Center Nurse 3 #9 Left Lateral Allen -Ulcer Cleansing -Primary Dressing Applied Aquacel Extra, Optilok 5x5 1/2 -Primary Dressing Covered/Secured with Dry Gauze & Roll Gauze, Secured with Tape -Aquacel Extra 1 -Optilok 5x5 1/2 1 -Optilok 6.5x10 -Promogran -Silicone Border Foam 6x6 BLE -Lotion applied to leg before compression wrap -Multi-Layered Wrap Application -Unna- Bilat (Qty applied) RLE -Lotion applied to leg before compression wrap -Tubular Bandage Double Layer -Size of Tubigrip Used Size F -Size F ($) 2 lle -Lotion applied to leg before compression wrap -Tubular Bandage Double Layer -Size of Tubigrip Used Size F -Size F ($) 2 Treatment Response Pain Scale: 0-10 Numeric Is Patient Pain Free? Yes WC - Visit Discharge Discharge Condition Stable Ambulatory Status Ambulatory Transportation Private Auto Medication Reconcilliation completed & No provided to patient/care provider Clinical Summary of Care Provided Yes 08/25/24 11:58 Wound Center by Zahira Nolasco pt instructed on dressing change with promogran and bordered foam then tubigrip Initialized on 08/25/24 11:58 - END OF NOTE Assessment/Plan Assessment/Plan (1) Non-pressure chronic ulcer left lower leg, limited to breakdown skin: CODE(S): L97.921 - Non-pressure chronic ulcer of unspecified part of left lower leg limited to breakdown of skin (2) Venous insufficiency: CODE(S): I87.2 - Venous insufficiency (chronic) (peripheral) (3) Edema of both lower extremities: CODE(S): R60.0 - Localized edema (4) Lymphedema: CODE(S): I89.0 - Lymphedema, not elsewhere classified (5) Essential hypertension: CODE(S): I10 - Essential (primary) hypertension (6) Morbid obesity with BMI of 45.0-49.9, adult: CODE(S): E66.01 - Morbid (severe) obesity due to excess calories; Z68.42 - Body mass index [BMI] 45.0-49.9, adult (7) Venous stasis 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: CODE(S): I83.023 - Varicose veins of left lower extremity with ulcer of ankle; L97.321 - Non-pressure 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 QUALIFIERS: Varicose vein presence: with varicose veins Qualified Code(s): I83.023 - Varicose veins of left lower extremity with ulcer of ankle; L97.321 - Non-pressure 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 (8) Debility: CODE(S): R53.81 - Other malaise (9) Osteoarthritis: CODE(S): M19.90 - Unspecified osteoarthritis, unspecified site QUALIFIERS: Osteoarthritis location: multiple joints Osteoarthritis type: primary Qualified Code(s): M15.9 - Polyosteoarthritis, unspecified (10) COPD (chronic obstructive pulmonary disease): CODE(S): J44.9 - Chronic obstructive pulmonary disease, unspecified QUALIFIERS: COPD type: unspecified COPD Qualified Code(s): J44.9 - Chronic obstructive pulmonary disease, unspecified (11) Chronic hypoxemic respiratory failure: CODE(S): J96.11 - Chronic respiratory failure with hypoxia (12) Pulmonary hypertension: CODE(S): I27.20 - Pulmonary hypertension, unspecified (13) Hypothyroidism: CODE(S): E03.9 - Hypothyroidism, unspecified QUALIFIERS: Hypothyroidism type: unspecified Qualified Code(s): E03.9 - Hypothyroidism, unspecified (14) Type 2 diabetes mellitus: CODE(S): E11.9 - Type 2 diabetes mellitus without complications QUALIFIERS: Diabetes mellitus fci insulin use: without gas meter mechanic use Diabetes mellitus complication status: with other specified complication Qualified Code(s): E11.69 - Type 2 diabetes mellitus with other specified complication (15) DOLORES (obstructive sleep apnea): CODE(S): G47.33 - Obstructive sleep apnea (adult) (pediatric) PLAN: Plan Evaluation and debridement performed today in clinic as annotated above. At home wound-care instructions: Will continue to dress her left lower leg with Aquacel and super absorber and roll gauze changed daily for heavy drainage. She was instructed to keep dressings clean and dry. Will have her use lymphedema pumps for 60 minutes 2-3 times daily. Off-loading: The patient was instructed to avoid pressure and friction on the affected areas. Reposition every 2 hours at minimum. Avoid prolonged standing and/or dangling of legs. When seated, feet should be elevated at chest level. Frequent ambulation is encouraged. Diet: Patient encouraged to increase protein intake while taking caution to avoid high carbohydrate and/or sugar intake. Encouraged weight loss. Labs/cultures/imaging: Wound Culture of left allen ulcer showed pseudomonas and MRSA. Ciprofloxacin prescribed. Venous ultrasound showed incompetence of veins of left lower extremity and vascular performed an ablation on 07/27/2024. Culture showed E. faecalis, anaerobic bacteria and Pseudomonas advised to restart Ciprofloxacin and Flagyl was prescribed for Anaerobic bacteria. 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 She has been referred to infectious disease and they will see her 09/27/2024. We are going to try treating her with Bactrim DS until she sees Dr. Johnson. She is tolerating this. Encouraged her to get her CPAP mask to improve DOLORES and pulmonary HTN treatment compliance which is adding to her decompensated lymphedema. Follow-up: Will have her follow up in 2 weeks. Return sooner or report to the emergency room should symptoms worsen, or new symptoms arise. Note: [employer] speech recognition environmental control administrator software was used to create portions of this document. Sound-alike and misspelled words, as well as other environmental control administrator errors may be contained in the documentation.
--- NOTE | 2024-09-15 12:26 | WC ---
PHOTO 09/15/24 LEFT GUSTAVO ADAMS
== END 2024-09-18 23:59 | disposition home or self-care (01) ==
LOC: WC 09:30
PROVIDERS: PCP Internal Medicine; Referring Provider Internal Medicine; Visit Provider Family Medicine
DX: I83.023 Varicose veins of left lower extremity with ulcer of ankle (principal); L97.321 Non-pressure chronic 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; I50.9 Heart failure, unspecified; I27.20 Pulmonary hypertension, unspecified; J44.9 Chronic obstructive pulmonary disease, unspecified; E66.01 Morbid (severe) obesity due to excess calories; Z68.42 Body mass index [BMI] 45.0-49.9, adult; E11.9 Type 2 diabetes mellitus without complications; I89.0 Lymphedema, not elsewhere classified; I87.2 Venous insufficiency (chronic) (peripheral); R60.0 Localized edema; M15.9 Polyosteoarthritis, unspecified; E03.9 Hypothyroidism, unspecified; Z79.890 Hormone replacement therapy; Z79.899 Other long term (current) drug therapy; Z86.718 Personal history of other venous thrombosis and embolism
CPT/HCPCS: 11042; 29580; 87070; 87075; 87077; 87186; 87205; 97597; 99213; G0463

== ENCOUNTER → 2024-09-22 | Outpatient (CLI) | payer MEDICARE, MEDICAID, SELFPAY ==
--- NOTE | 2024-09-22 07:06 | ECHOCS_ITS ---
Reason For Study Reason For Study: Chest pain Procedure This was a 2D Doppler, Color Flow transthoracic echocardiogram. The study was technically difficult. Exam performed portable in patient room. Left Ventricle Normal LV size. Mild concentric left ventricular hypertrophy. Left ventricular systolic function is normal. The left ventricular ejection fraction is 65 %. Stage 1 diastolic dysfunction. No regional wall motion abnormalities noted. Right Ventricle Normal RV size. Normal systolic function. Atria Normal left atrium. Normal right atrium. Mitral Valve Normal mitral valve. Tricuspid Valve Normal tricuspid valve. Aortic Valve The aortic valve is not well visualized. Pulmonic Valve The pulmonic valve is not well visualized. Great Vessels Normal aortic root. The pulmonary artery is normal size. Inferior vena cava collapse with respiration. Pericardium/Pleural No pericardial effusion. Medication Diluted definity 1.0ml given slow IV push to enhance endocardial definition. MMode/2D Measurements & Calculations LVIDd: 4.8 cm IVSd: 1.3 cm LVOT diam: 2.3 cm LVIDs: 3.0 cm LVPWd: 1.4 cm RVDd: 3.7 cm FS: 37.3 % LVOT area: 4.1 cm2 Ao root diam: 3.6 cm LAV(MOD-sp4): 48.8 ml LVAd ap4: 33.8 cm2 LVLd ap4: 8.2 cm EDV(MOD-sp4): 120.7 ml EDV(sp4-el): 118.5 ml LVAs ap4: 18.9 cm2 LVLs ap4: 6.9 cm ESV(MOD-sp4): 45.3 ml ESV(sp4-el): 43.8 ml EF(MOD-sp4): 62.5 % EF(sp4-el): 63.1 % SV(MOD-sp4): 75.4 ml SV(sp4-el): 74.8 ml LA A4 area: 19.0 cm2 SI(MOD-sp4): 31.4 ml/m2 RA A4 area: 19.1 cm2 TAPSE: 2.6 cm Time Measurements MV dec time: 0.28 sec Doppler Measurements & Calculations MV E max shawn: 61.5 cm/sec Lat Peak E' Shawn: 9.2 cm/sec Med Peak E' Shawn: 8.5 cm/sec MV A max shawn: 99.3 cm/sec E/E' lat: 6.7 E/E' med: 7.3 MV E/A: 0.62 MV dec slope: 221.5 cm/sec2 Ao V2 max: 194.8 cm/sec LV V1 max: 130.2 cm/sec Ao max P.2 mmHg LV V1 max P.8 mmHg Ao V2 mean: 130.7 cm/sec LV V1 mean P.3 mmHg Ao mean P.6 mmHg LV V1 mean: 84.5 cm/sec Ao V2 VTI: 40.9 cm LV V1 VTI: 26.4 cm AV (velocity ratio): 0.65 ARMOND(I,D): 2.6 cm2 ARMOND(V,D): 2.7 cm2 SV(LVOT): 107.4 ml PA V2 max: 99.8 cm/sec ECHO/Echo Complete W/ Contrast Interpretation Summary Normal LV size. Left ventricular systolic function is normal. The left ventricular ejection fraction is 65 %. Stage 1 diastolic dysfunction. Contrast injection was performed. Ordering Physician: Navneet Michel Referring Physician: Luis Cortés Performed By: Kassandra Nieto RDCS
--- NOTE | 2024-09-22 15:51 | STRESSREP ---
Stress Test Report Pharmacologic myocardial perfusion stress test. 73-year-old lady with a history of shortness of breath Resting EKG demonstrates sinus rhythm with a rate of 74 bpm. Resting blood pressure is 164/70 mmHg. 0.4 mg of regadenoson was infused per usual protocol followed by rapid intravenous saline flush injection. Continuous EKG monitoring was performed. The maximum heart rate was 94 bpm which was 64% of max impacted heart rate the maximum workload was 1 metabolic equivalent. At rest there were no ST or T wave changes noted to suggest ischemia and at peak infusion nonspecific ST changes were noted which did not meet the criteria for ischemia. No clinical angina is noted. The final blood pressure was 140/88 mmHg. Myocardial perfusion protocol. 14.5 mCi of technetium 99m sestamibi was injected at rest. 0.4 mg of regadenoson was infused per usual protocol. At peak infusion 44.7 mCi of technetium 99m sestamibi was injected stress images were obtained stress and rest images were reconstructed and compared in the short axis vertical long and horizontal long axis. Gated images were also obtained. Perfusion SPECT analysis: Review of the stress images demonstrate normal uptake of tracer noted in all areas of the myocardium. The resting images similar demonstrated normal uptake of tracer noted in all areas of the myocardium. No areas of reversibility are noted to suggest ischemia and no previous infarct is noted. Gated SPECT analysis: The gated ejection fraction is 72%. Conclusion: Normal pharmacologic myocardial perfusion stress test. Preserved ejection fraction.
== END | disposition home or self-care (01) ==
PROVIDERS: PCP Internal Medicine; Referring Provider Nurse Practitioner Family; Visit Provider Nurse Practitioner Family
DX: R06.09 Other forms of dyspnea (principal); R07.9 Chest pain, unspecified
CPT/HCPCS: 78452; 93017; 93306; A9500; Q9957; A4216; C8929; J2785

== ENCOUNTER 2024-10-13 10:00 | Outpatient (RCR) | payer MEDICARE, MEDICAID, SELFPAY ==
[2024-09-19 00:40] VITALS: BP 140/60; PULSE 74; RESP 18; TEMP 36.4; O2SAT 94; BMI 49.8
[2024-09-29 10:12] VITALS: BP 159/68; PULSE 88; RESP 18; TEMP 36.2; BMI 49.8
--- NOTE | 2024-09-29 14:31 | PCM.WC.PN ---
History of Present Illness Date of Service: 09/29/24 Chief Complaint: Left LE ulcer, bilateral lower extremity swelling History of Wound: Liz is a pleasant 74 yo woman that presents to the wound center for bilateral lower extremity edema and blisters and drainage of her bilateral lower extremities. She has had increased edema the last 2 weeks and her legs started seeping a few days ago. She has been wearing her tubigrip compression and had been using the lymphedema pumps until they started seeping fluid. She tries to elevate her legs when she is sitting but is not always consistent with doing this. She has been wrapping her leg with gauze when it is seeping but otherwise has not been doing any regular dressings. Patient has been treated at the wound center in the past for similar wounds, most recently October 2023. She has also been seen in the vascular surgery clinic where she was evaluated her for BLE DVT and venous insufficiency. 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 GSV ablation has been done to her right lower leg. She has received lymphedema pumps that were ordered during her last treatment course and has been using these. Last venous study was 03/2022. Last A1C 01/2023 was 6.4%. Last TSH - 01/2022 Patient's medical history is also significant for CHF, COPD, T2DM, lymphedema. She has a CPAP but has not been using this due to needing a new mask. She states that a prescription was to be sent and she never received the mask. Her current mask has a hole in it. Subjective Subjective Liz returns today for treatment of edema to bilateral lower legs. She underwent venous ablation of left lower leg on 07/27/2024. She has been elevating her legs and using lymphedema pumps as directed. She tolerated Aquacel but had increased drainage and edema. She does continue to have drainage from left lateral lower leg and has mild erythema but no obvious ulcer, just skin breakdown. She denies fever, chills. Objective Data Objective Data Vital Signs: Vital Signs Temp Pulse Resp BP Pulse Ox 97.2 F L 88 18 159/68 H 94 09/29/24 10:12 09/29/24 10:12 09/29/24 10:12 09/29/24 10:12 09/19/24 00:40 Weight: 140.16 kg Body Mass Index (BMI) 49.8 Physical Exam Const alert, oriented x3, no apparent distress and healthy appearing General Appearance: cooperative; Negative for combative or lethargic Orientation / Consciousness: awake Exam Limitations: no limitations Nutritional Appearance: obese HEENT normocephalic and head/scalp atraumatic Eyes EOMs intact bilaterally General Eye: normal appearance of both eyes Neck full ROM General: trachea midline Lymph Lymphatic: lymphedema severe and pitting Resp normal respiratory effort and no use of accessory muscles Effort and Inspection: Negative for labored, stridor or audible wheezes Cardio regular rate and regular rhythm Back/Spine Cervical Spine: cervical ROM normal Extremity full ROM, normal capillary refill and no clubbing, cyanosis or edema General Extremity: edema bilateral lower extremity Details: severe (with skin changes associated with lymphedema, thickened nodular appearance from mid allen to ankle) Skin no rashes or lesions noted General Skin Exam: erythema, venous stasis and dermatitis Wounds: wounds noted Wound Narrative: as in clinical panel, mildly decreased erythema and light serous drainage from lateral lower leg, nodular appearance of skin associated with lymphedema Neuro oriented x3, CN's II-XII intact bilaterally, no focal motor deficits and no sensory deficits noted Psych thought process normal, cooperative, affect normal, speech normal and activity/motor behavior normal Debridement Note Debridement Note Wound debrided: left lower leg Laterality: Left No debridement was completed: No debridement was completed today (no slough or ulcer present) Post-Debridement Measurements and Additional Note: Post-Debridement Measurements/Treatment - Nurse 1 - General Ulcer Assessment Start: 09/29/24 10:12 Freq: Status: Active Protocol: KELSEY Activity Type Activity Date Activity User E-sign Co-sign Detail Recorded Client Recorded Date Recorded By Document 09/29/24 10:12 [id number] 09/29/24 10:13 ROBERT 09/29/24 10:12 - Today's Visit Information Type of service Follow-up Visit (Physician/CELL BIOLOGY SCIENTIST ) Arrival Mode Ambulatory, Walker Transfer Assistance None Patient Identification Verified (Name & Yes ) Patient Requires Transmission-Based No Precautions Height and Weight Body Mass Index (BMI) 49.8 BMI Classification Obese Vital Signs Temperature (97.8 F-99.1 F) 97.2 F L Temperature Source Temporal Pulse Rate (60-100) 88 Pulse Location Monitor Respiratory Rate (12-18) 18 Respiratory rate source Observation Blood Pressure (90/60-120/80) 159/68 H Blood Pressure Mean (mm Hg) 98 Source Monitor Position Semi-Fowlers Blood Pressure Location Left Arm History Since Last Visit- (Skip if this is Patient's initial visit) Have you changed medications since your No last visit? Any new allergies or adverse reactions No Had a fall/change in ADL's that may No increase risk of falls Signs or symptoms of abuse and/or No neglect since last visit Have you been in the hospital since your No last visit? Has dressing in place as prescribed Yes Has compression in place as prescribed Yes Has offloadiing in place as prescribed N/A Experienced any changes in pain level or No management Left Footwear Regular Shoe Right Footwear Regular Shoe Pain Scale: 0-10 Numeric Is Patient Pain Free? Yes WC - Nurse 1 - General Ulcer Measurement Start: 09/29/24 10:12 Freq: Status: Active Protocol: Activity Type Activity Date Activity User E-sign Co-sign Detail Recorded Client Recorded Date Recorded By Document 09/29/24 10:12 ROBERT [id number] 09/29/24 10:13 ROBERT 09/29/24 10:12 Wound Center Nurse 1 #9 Left Lateral Allen -Combined with other wound No -Current Size (cm) - Length 0.1 -Current Size (cm) - Width 0.1 -Current Size (cm) - Depth 0.1 -Total Square Cm 0.01 -Tunneling No -Undermining/Tunneling No -Circular Undermining No -Exudate Amt Small -Exudate Type Serosanguineous -Wound Margin Distinct, Outline Attached -Granulation Amt Medium (34-66%) -Granulation Quality Loyal -Slough/Fibrin Yes -Necrosis Amt Small (1-33%) -Necrotic Tissue Type Adherent Slough -Structure Exposed N/A -Texture (Adrianna-wound Skin Appearance) Assessed, Excoriation, Localized Edema -Moisture (Adrianna-wound Skin Appearance) Assessed -Color (Adrianna-wound Skin Appearance) Assessed -Temperature (Adrinana-wound Skin No Abnormality Appearance) (Pt Warm) -Tenderness on Palpation (Adrianna-wound No Skin Appearance) -Ulcer Cleansing Wound Cleanser -Foul Odor after Cleansing No -Anesthetic Used 5% Lidocaine Gel Lower Limb Edema Present Yes Right Calf (cm) 55 Right Ankle (cm) 30.2 Left Calf (cm) 54 Left Ankle (cm) 30 WC - Nurse 2 - General Ulcer CM Notes Start: 09/29/24 10:12 Freq: Status: Active Protocol: Activity Type Activity Date Activity User E-sign Co-sign Detail Recorded Client Recorded Date Recorded By Document 09/29/24 10:31 GM [id number] 09/29/24 10:35 GM 09/29/24 10:31 Wound Center Nurse 2 #9 Left Lateral Allen -Time 10:31 -Correct Patient Yes -Correct Side, Site, Position Yes -Correct Procedure No -Procedure Performed No -Tunneling No -Undermining/Tunneling No -Circular Undermining No -Wound/Ulcer Outcome Healed- Epithelialized -Foul Odor after Cleansing No -Bioengineered Tissue No -Bleeding Controlled with NA -Offloading No Pain Scale: 0-10 Numeric Is Patient Pain Free? Yes - Nurse 3 - General Ulcer D/C NN Start: 09/29/24 10:12 Freq: Status: Active Protocol: Activity Type Activity Date Activity User E-sign Co-sign Detail Recorded Client Recorded Date Recorded By Document 09/29/24 11:59 KW [id number] 09/29/24 12:00 KW 09/29/24 11:59 Wound Care Center Nurse 3 #9 Left Lateral Allen -Primary Dressing Applied Optilok 5x5 1/2 -Optilok 5x5 1/2 1 -Optilok 6.5x10 0 BLE -Tubular Bandage Double Layer -Size of Tubigrip Used Size F -Size F ($) 4 Pain Scale: 0-10 Numeric Is Patient Pain Free? Yes - Visit Discharge Discharge Condition Stable Ambulatory Status Ambulatory, Walker Transportation Private Auto Medication Reconcilliation completed & No provided to patient/care provider Clinical Summary of Care Provided Yes Assessment/Plan Assessment/Plan (1) Non-pressure chronic ulcer left lower leg, limited to breakdown skin: CODE(S): L97.921 - Non-pressure chronic ulcer of unspecified part of left lower leg limited to breakdown of skin (2) Venous insufficiency: CODE(S): I87.2 - Venous insufficiency (chronic) (peripheral) (3) Edema of both lower extremities: CODE(S): R60.0 - Localized edema (4) Lymphedema: CODE(S): I89.0 - Lymphedema, not elsewhere classified (5) Essential hypertension: CODE(S): I10 - Essential (primary) hypertension (6) Morbid obesity with BMI of 45.0-49.9, adult: CODE(S): E66.01 - Morbid (severe) obesity due to excess calories; Z68.42 - Body mass index [BMI] 45.0-49.9, adult (7) Venous stasis 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: CODE(S): I83.023 - Varicose veins of left lower extremity with ulcer of ankle; L97.321 - Non-pressure 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 QUALIFIERS: Varicose vein presence: with varicose veins Qualified Code(s): I83.023 - Varicose veins of left lower extremity with ulcer of ankle; L97.321 - Non-pressure 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 (8) Debility: CODE(S): R53.81 - Other malaise (9) Osteoarthritis: CODE(S): M19.90 - Unspecified osteoarthritis, unspecified site QUALIFIERS: Osteoarthritis location: multiple joints Osteoarthritis type: primary Qualified Code(s): M15.9 - Polyosteoarthritis, unspecified (10) COPD (chronic obstructive pulmonary disease): CODE(S): J44.9 - Chronic obstructive pulmonary disease, unspecified QUALIFIERS: COPD type: unspecified COPD Qualified Code(s): J44.9 - Chronic obstructive pulmonary disease, unspecified (11) Chronic hypoxemic respiratory failure: CODE(S): J96.11 - Chronic respiratory failure with hypoxia (12) Pulmonary hypertension: CODE(S): I27.20 - Pulmonary hypertension, unspecified (13) Hypothyroidism: CODE(S): E03.9 - Hypothyroidism, unspecified QUALIFIERS: Hypothyroidism type: unspecified Qualified Code(s): E03.9 - Hypothyroidism, unspecified (14) Type 2 diabetes mellitus: CODE(S): E11.9 - Type 2 diabetes mellitus without complications QUALIFIERS: Diabetes mellitus complication status: with other specified complication Diabetes mellitus termite inspector insulin use: without skilled nursing use Qualified Code(s): E11.69 - Type 2 diabetes mellitus with other specified complication (15) DOLORES (obstructive sleep apnea): CODE(S): G47.33 - Obstructive sleep apnea (adult) (pediatric) PLAN: Plan Evaluation and debridement performed today in clinic as annotated above. At home wound-care instructions: Will continue to dress her left lower leg with Aquacel and super absorber and roll gauze changed daily for heavy drainage. She was instructed to keep dressings clean and dry. Will have her use lymphedema pumps for 60 minutes 2-3 times daily. Off-loading: The patient was instructed to avoid pressure and friction on the affected areas. Reposition every 2 hours at minimum. Avoid prolonged standing and/or dangling of legs. When seated, feet should be elevated at chest level. Frequent ambulation is encouraged. Diet: Patient encouraged to increase protein intake while taking caution to avoid high carbohydrate and/or sugar intake. Encouraged weight loss. Labs/cultures/imaging: Wound Culture of left allen ulcer showed pseudomonas and MRSA. Ciprofloxacin prescribed. Venous ultrasound showed incompetence of veins of left lower extremity and vascular performed an ablation on 07/27/2024. Culture showed E. faecalis, anaerobic bacteria and Pseudomonas advised to restart Ciprofloxacin and Flagyl was prescribed for Anaerobic bacteria. 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 She has been referred to infectious disease and they will see her 09/27/2024. We are going to try treating her with Bactrim DS until she sees Dr. Johnson. She is tolerating this. Will continue Bactrim DS. Encouraged her to get her CPAP mask to improve DOLORES and pulmonary HTN treatment compliance which is adding to her decompensated lymphedema. Follow-up: Will have her follow up in 2 weeks. Return sooner or report to the emergency room should symptoms worsen, or new symptoms arise. Note: [employer] speech recognition sales engineer account manager software was used to create portions of this document. Sound-alike and misspelled words, as well as other sales engineer account manager errors may be contained in the documentation.
[2024-10-06 11:09] VITALS: BP 186/69; PULSE 79; RESP 18; TEMP 36; BMI 49.8
--- NOTE | 2024-10-06 14:03 | PCM.WC.PN ---
History of Present Illness Date of Service: 10/06/24 Chief Complaint: Left LE ulcer, bilateral lower extremity swelling History of Wound: Liz is a pleasant 74 yo woman that presents to the wound center for bilateral lower extremity edema and blisters and drainage of her bilateral lower extremities. She has had increased edema the last 2 weeks and her legs started seeping a few days ago. She has been wearing her tubigrip compression and had been using the lymphedema pumps until they started seeping fluid. She tries to elevate her legs when she is sitting but is not always consistent with doing this. She has been wrapping her leg with gauze when it is seeping but otherwise has not been doing any regular dressings. Patient has been treated at the wound center in the past for similar wounds, most recently October 2023. She has also been seen in the vascular surgery clinic where she was evaluated her for BLE DVT and venous insufficiency. 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 GSV ablation has been done to her right lower leg. She has received lymphedema pumps that were ordered during her last treatment course and has been using these. Last venous study was 03/2022. Last A1C 01/2023 was 6.4%. Last TSH - 01/2022 Patient's medical history is also significant for CHF, COPD, T2DM, lymphedema. She has a CPAP but has not been using this due to needing a new mask. She states that a prescription was to be sent and she never received the mask. Her current mask has a hole in it. Subjective Subjective Liz returns today for treatment of edema to bilateral lower legs. She underwent venous ablation of left lower leg on 07/27/2024. She has been elevating her legs and using lymphedema pumps as directed. She is tolerating Superabsorber for heavy drainage. She does continue to have heavy drainage from left lateral lower leg and has mild erythema. She denies fever, chills. Objective Data Objective Data Vital Signs: Vital Signs Temp Pulse Resp BP Pulse Ox 96.8 F L 79 18 186/69 H 94 10/06/24 11:09 10/06/24 11:09 10/06/24 11:09 10/06/24 11:09 09/19/24 00:40 Weight: 140.16 kg Body Mass Index (BMI) 49.8 Physical Exam Const alert, oriented x3, no apparent distress and healthy appearing General Appearance: cooperative; Negative for combative or lethargic Orientation / Consciousness: awake Exam Limitations: no limitations Nutritional Appearance: obese HEENT normocephalic and head/scalp atraumatic Eyes EOMs intact bilaterally General Eye: normal appearance of both eyes Neck full ROM General: trachea midline Lymph Lymphatic: lymphedema severe and pitting Resp normal respiratory effort and no use of accessory muscles Effort and Inspection: Negative for labored, stridor or audible wheezes Cardio regular rate and regular rhythm Back/Spine Cervical Spine: cervical ROM normal Extremity full ROM, normal capillary refill and no clubbing, cyanosis or edema General Extremity: edema bilateral lower extremity Details: severe (with skin changes associated with lymphedema, thickened nodular appearance from mid allen to ankle) Skin no rashes or lesions noted General Skin Exam: erythema, venous stasis and dermatitis Wounds: wounds noted Wound Narrative: as in clinical panel, mildly decreased erythema and light serous drainage from lateral lower leg, nodular appearance of skin associated with lymphedema Neuro oriented x3, CN's II-XII intact bilaterally, no focal motor deficits and no sensory deficits noted Psych thought process normal, cooperative, affect normal, speech normal and activity/motor behavior normal Debridement Note Debridement Note Wound debrided: left lateral leg Laterality: Left Type of Debridement: Excisional debridement Anesthesia Used: 4% Lidocaine Solution and 5% Lidocaine Gel Depth: Down to and including healthy tissue and in the subcutaneous layer Percentage of wound debrided: 100 Instrument Used: 3mm curette Tissue Removed: Yellow slough, devitalized tissue Severity: Fat Layer Exposed Amount of bleeding with debridement: Mild Bleeding Controlled with: Compression and gauze Patient tolerated procedure: Patient tolerated procedure well Post-Debridement Measurements and Additional Note: Post-Debridement Measurements/Treatment - Nurse 1 - General Ulcer Assessment Start: 09/29/24 10:12 Freq: Status: Active Protocol: KELSEY Activity Type Activity Date Activity User E-sign Co-sign Detail Recorded Client Recorded Date Recorded By Document 09/29/24 10:12 RB [id number] 09/29/24 10:13 RB Document 10/06/24 11:09 RB [id number] 10/06/24 11:11 RB 09/29/24 10/06/24 10:12 11:09 - Today's Visit Information Type of service Follow-up Visit Follow-up Visit (Physician/GETTERING FILAMENT MACHINE OPERATOR (Physician/GETTERING FILAMENT MACHINE OPERATOR ) ) Arrival Mode Ambulatory, Ambulatory, Walker Walker Transfer Assistance None None Patient Identification Verified (Name & Yes Yes ) Patient Requires Transmission-Based No No Precautions Height and Weight Body Mass Index (BMI) 49.8 49.8 BMI Classification Obese Obese Vital Signs Temperature (97.8 F-99.1 F) 97.2 F L 96.8 F L Temperature Source Temporal Temporal Pulse Rate (60-100) 88 79 Pulse Location Monitor Monitor Respiratory Rate (12-18) 18 18 Respiratory rate source Observation Observation Blood Pressure (90/60-120/80) 159/68 H 186/69 H Blood Pressure Mean (mm Hg) 98 108 Source Monitor Monitor Position Semi-Fowlers Semi-Fowlers Blood Pressure Location Left Arm Left Arm History Since Last Visit- (Skip if this is Patient's initial visit) Have you changed medications since your No No last visit? Any new allergies or adverse reactions No No Had a fall/change in ADL's that may No No increase risk of falls Signs or symptoms of abuse and/or No No neglect since last visit Have you been in the hospital since your No No last visit? Has dressing in place as prescribed Yes Yes Has compression in place as prescribed Yes Yes Has offloadiing in place as prescribed N/A No Experienced any changes in pain level or No No management Left Footwear Regular Shoe Regular Shoe Right Footwear Regular Shoe Regular Shoe Pain Scale: 0-10 Numeric Is Patient Pain Free? Yes Yes WC - Nurse 1 - General Ulcer Measurement Start: 09/29/24 10:12 Freq: Status: Active Protocol: Activity Type Activity Date Activity User E-sign Co-sign Detail Recorded Client Recorded Date Recorded By Document 09/29/24 10:12 RB [id number] 09/29/24 10:13 RB Document 10/06/24 11:09 RB [id number] 10/06/24 11:11 RB 09/29/24 10/06/24 10:12 11:09 Wound Center Nurse 1 #9 Left Lateral Allen -Combined with other wound No No -Current Size (cm) - Length 0.1 0.1 -Current Size (cm) - Width 0.1 0.1 -Current Size (cm) - Depth 0.1 0.1 -Total Square Cm 0.01 0.01 -Tunneling No No -Undermining/Tunneling No No -Circular Undermining No No -Exudate Amt Small Large -Exudate Type Serosanguineous Serosanguineous -Wound Margin Distinct, Distinct, Outline Outline Attached Attached -Granulation Amt Medium (34-66%) Medium (34-66%) -Granulation Quality [place] -Slough/Fibrin Yes Yes -Necrosis Amt Small (1-33%) Medium (34-66%) -Necrotic Tissue Type Adherent Slough Adherent Slough -Structure Exposed N/A N/A -Texture (Adrianna-wound Skin Appearance) Assessed, Localized Edema Excoriation, Localized Edema -Moisture (Adrianna-wound Skin Appearance) Assessed Weeping -Color (Adrianna-wound Skin Appearance) Assessed Assessed -Temperature (Adrianna-wound Skin No Abnormality No Abnormality Appearance) (Pt Warm) (Pt Warm) -Tenderness on Palpation (Adrianna-wound No No Skin Appearance) -Ulcer Cleansing Wound Cleanser Wound Cleanser -Foul Odor after Cleansing No No -Anesthetic Used 5% Lidocaine 5% Lidocaine Gel Gel Lower Limb Edema Present Yes Yes Right Calf (cm) 55 Right Ankle (cm) 30.2 Left Calf (cm) 54 54.8 Left Ankle (cm) 30 30 WC - Nurse 2 - General Ulcer CM Notes Start: 09/29/24 10:12 Freq: Status: Active Protocol: Activity Type Activity Date Activity User E-sign Co-sign Detail Recorded Client Recorded Date Recorded By Document 09/29/24 10:31 GM [id number] 09/29/24 10:35 GM Document 10/06/24 11:54 GM [id number] 10/06/24 11:55 GM Edit Result 10/06/24 11:54 GM (1) [id number] 10/06/24 12:05 GM (1) #9 Left Lateral Allen - Correct Procedure No => Yes - Procedure Performed No => Yes - Type of Procedure => Debridement - Clinical Debridement => Epidermis / Dermis - Tissue Removed => Epidermis,Dermis - Post Debridement (cm) - Length => 4.0 - Post Debridement (cm) - Width => 5.0 - Post Debridement (cm) - Depth => 0.1 - Total Square (Post) (cm) => 20.00 - Area of Debridement (cm) - Length => 4.0 - Area of Debridement (cm) - Width => 5.0 - Total Square (Area) (cm) => 20.00 - Ulcer Cleansing Not Cleansed => Rinsed/Irrigated => with Saline - Debridement - Open, 1st 20sq cm => Yes 09/29/24 10/06/24 10:31 11:54 Wound Center Nurse 2 #9 Left Lateral Allen -Time 10:31 11:55 -Correct Patient Yes Yes -Correct Side, Site, Position Yes Yes -Correct Procedure No Yes -Procedure Performed No Yes -Type of Procedure Debridement -Clinical Debridement Epidermis / Dermis -Tissue Removed Epidermis, Dermis -Post Debridement (cm) - Length 4.0 -Post Debridement (cm) - Width 5.0 -Post Debridement (cm) - Depth 0.1 -Total Square (Post) (cm) 20.00 -Area of Debridement (cm) - Length 4.0 -Area of Debridement (cm) - Width 5.0 -Total Square (Area) (cm) 20.00 -Tunneling No No -Undermining/Tunneling No No -Circular Undermining No No -Wound/Ulcer Outcome Healed- Not Healed Epithelialized -Ulcer Cleansing Rinsed/ Irrigated with Saline -Foul Odor after Cleansing No No -Bioengineered Tissue No No -Bleeding Controlled with NA NA -Offloading No -Debridement - Open, 1st 20sq cm Yes Pain Scale: 0-10 Numeric Is Patient Pain Free? Yes Yes WC - Nurse 3 - General Ulcer D/C NN Start: 09/29/24 10:12 Freq: Status: Active Protocol: Activity Type Activity Date Activity User E-sign Co-sign Detail Recorded Client Recorded Date Recorded By Document 09/29/24 11:59 KW [id number] 09/29/24 12:00 KW Document 10/06/24 12:32 RB [id number] 10/06/24 12:33 RB 09/29/24 10/06/24 11:59 12:32 Wound Care Center Nurse 3 #9 Left Lateral Allen -Primary Dressing Applied Optilok 5x5 1/2 Silicone Border Foam 6x6 -Optilok 5x5 1/2 1 -Optilok 6.5x10 0 -Silicone Border Foam 6x6 1 BLE -Lotion applied to leg before Yes compression wrap -Tubular Bandage Double Layer Double Layer -Size of Tubigrip Used Size F Size F -Size F ($) 4 4 Treatment Response Procedure Tolerated Well Pain Scale: 0-10 Numeric Is Patient Pain Free? Yes Yes WC - Visit Discharge Discharge Condition Stable Stable Ambulatory Status Ambulatory, Ambulatory, Walker Walker Transportation Private Auto Private Auto Medication Reconcilliation completed & No No provided to patient/care provider Clinical Summary of Care Provided Yes Yes Assessment/Plan Assessment/Plan (1) Non-pressure chronic ulcer left lower leg, limited to breakdown skin: CODE(S): L97.921 - Non-pressure chronic ulcer of unspecified part of left lower leg limited to breakdown of skin (2) Venous insufficiency: CODE(S): I87.2 - Venous insufficiency (chronic) (peripheral) (3) Edema of both lower extremities: CODE(S): R60.0 - Localized edema (4) Lymphedema: CODE(S): I89.0 - Lymphedema, not elsewhere classified (5) Essential hypertension: CODE(S): I10 - Essential (primary) hypertension (6) Morbid obesity with BMI of 45.0-49.9, adult: CODE(S): E66.01 - Morbid (severe) obesity due to excess calories; Z68.42 - Body mass index [BMI] 45.0-49.9, adult (7) Venous stasis 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: CODE(S): I83.023 - Varicose veins of left lower extremity with ulcer of ankle; L97.321 - Non-pressure 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 QUALIFIERS: Varicose vein presence: with varicose veins Qualified Code(s): I83.023 - Varicose veins of left lower extremity with ulcer of ankle; L97.321 - Non-pressure 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 (8) Debility: CODE(S): R53.81 - Other malaise (9) Osteoarthritis: CODE(S): M19.90 - Unspecified osteoarthritis, unspecified site QUALIFIERS: Osteoarthritis location: multiple joints Osteoarthritis type: primary Qualified Code(s): M15.9 - Polyosteoarthritis, unspecified (10) COPD (chronic obstructive pulmonary disease): CODE(S): J44.9 - Chronic obstructive pulmonary disease, unspecified QUALIFIERS: COPD type: unspecified COPD Qualified Code(s): J44.9 - Chronic obstructive pulmonary disease, unspecified (11) Chronic hypoxemic respiratory failure: CODE(S): J96.11 - Chronic respiratory failure with hypoxia (12) Pulmonary hypertension: CODE(S): I27.20 - Pulmonary hypertension, unspecified (13) Hypothyroidism: CODE(S): E03.9 - Hypothyroidism, unspecified QUALIFIERS: Hypothyroidism type: unspecified Qualified Code(s): E03.9 - Hypothyroidism, unspecified (14) Type 2 diabetes mellitus: CODE(S): E11.9 - Type 2 diabetes mellitus without complications QUALIFIERS: Diabetes mellitus complication status: with other specified complication Diabetes mellitus jail insulin use: without music engraver use Qualified Code(s): E11.69 - Type 2 diabetes mellitus with other specified complication (15) DOLORES (obstructive sleep apnea): CODE(S): G47.33 - Obstructive sleep apnea (adult) (pediatric) PLAN: Plan Evaluation and debridement performed today in clinic as annotated above. At home wound-care instructions: Will continue to dress her left lower leg with super absorber and roll gauze changed daily for heavy drainage. She was instructed to keep dressings clean and dry. Will have her use lymphedema pumps for 60 minutes 2-3 times daily. Will have her apply Gentamicin ointment topically. Off-loading: The patient was instructed to avoid pressure and friction on the affected areas. Reposition every 2 hours at minimum. Avoid prolonged standing and/or dangling of legs. When seated, feet should be elevated at chest level. Frequent ambulation is encouraged. Diet: Patient encouraged to increase protein intake while taking caution to avoid high carbohydrate and/or sugar intake. Encouraged weight loss. Labs/cultures/imaging: Wound Culture of left allen ulcer showed pseudomonas and MRSA. Ciprofloxacin prescribed. Venous ultrasound showed incompetence of veins of left lower extremity and vascular performed an ablation on 07/27/2024. Culture showed E. faecalis, anaerobic bacteria and Pseudomonas advised to restart Ciprofloxacin and Flagyl was prescribed for Anaerobic bacteria. 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 She has been referred to infectious disease and they will see her 09/27/2024. We are going to try treating her with Bactrim DS until she sees Dr. Johnson. She is tolerating this. Will continue Bactrim DS. Encouraged her to get her CPAP mask to improve DOLORES and pulmonary HTN treatment compliance which is adding to her decompensated lymphedema. Follow-up: Will have her follow up in 2 weeks. Return sooner or report to the emergency room should symptoms worsen, or new symptoms arise. Note: [employer] speech recognition ct technologist software was used to create portions of this document. Sound-alike and misspelled words, as well as other ct technologist errors may be contained in the documentation.
[2024-10-13 10:17] VITALS: BP 136/63; PULSE 69; RESP 18; TEMP 36; BMI 49.8
--- NOTE | 2024-10-13 14:53 | PN.PCM_ITS ---
History of Present Illness Date of Service: 10/13/24 Chief Complaint: Left LE ulcer, bilateral lower extremity swelling History of Wound: Liz is a pleasant 74 yo woman that presents to the wound center for bilateral lower extremity edema and blisters and drainage of her bilateral lower extremities. She has had increased edema the last 2 weeks and her legs started seeping a few days ago. She has been wearing her tubigrip compression and had been using the lymphedema pumps until they started seeping fluid. She tries to elevate her legs when she is sitting but is not always consistent with doing this. She has been wrapping her leg with gauze when it is seeping but otherwise has not been doing any regular dressings. Patient has been treated at the wound center in the past for similar wounds, most recently October 2023. She has also been seen in the vascular surgery clinic where she was evaluated her for BLE DVT and venous insufficiency. 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 GSV ablation has been done to her right lower leg. She has received lymphedema pumps that were ordered during her last treatment course and has been using these. Last venous study was 03/2022. Last A1C 01/2023 was 6.4%. Last TSH - 01/2022 Patient's medical history is also significant for CHF, COPD, T2DM, lymphedema. She has a CPAP but has not been using this due to needing a new mask. She states that a prescription was to be sent and she never received the mask. Her current mask has a hole in it. Subjective Subjective Liz returns today for treatment of edema to bilateral lower legs. She underwent venous ablation of left lower leg on 07/27/2024. She has been elevating her legs and using lymphedema pumps as directed. She is tolerating Superabsorber for heavy drainage. She does continue to have drainage from left lateral lower leg and less erythema. She denies fever, chills. Objective Data Objective Data Vital Signs: Vital Signs Temp Pulse Resp BP Pulse Ox O2 Del Method 96.8 F L 69 18 136/63 H 94 Room Air 10/13/24 10:17 10/13/24 10:17 10/13/24 10:17 10/13/24 10:17 09/19/24 00:40 10/13/24 10:17 Oxygen Delivery Method Room Air Weight: 140.16 kg Body Mass Index (BMI) 49.8 Physical Exam Const alert, oriented x3, no apparent distress and healthy appearing General Appearance: cooperative; Negative for combative or lethargic Orientation / Consciousness: awake Exam Limitations: no limitations Nutritional Appearance: obese HEENT normocephalic and head/scalp atraumatic Eyes EOMs intact bilaterally General Eye: normal appearance of both eyes Neck full ROM General: trachea midline Lymph Lymphatic: lymphedema severe and pitting Resp normal respiratory effort and no use of accessory muscles Effort and Inspection: Negative for labored, stridor or audible wheezes Cardio regular rate and regular rhythm Back/Spine Cervical Spine: cervical ROM normal Extremity full ROM, normal capillary refill and no clubbing, cyanosis or edema General Extremity: edema bilateral lower extremity Details: severe (with skin changes associated with lymphedema, thickened nodular appearance from mid allen to ankle) Skin no rashes or lesions noted General Skin Exam: erythema, venous stasis and dermatitis Wounds: wounds noted Wound Narrative: as in clinical panel, mildly decreased erythema and light serous drainage from lateral lower leg, nodular appearance of skin associated with lymphedema Neuro oriented x3, CN's II-XII intact bilaterally, no focal motor deficits and no sensory deficits noted Psych thought process normal, cooperative, affect normal, speech normal and activity/motor behavior normal Debridement Note Debridement Note Wound debrided: left lateral leg Laterality: Left Type of Debridement: Selective debridement Anesthesia Used: 4% Lidocaine Solution Depth: Down to and including healthy tissue Instrument Used: - (gauze) Tissue Removed: Yellow slough, devitalized tissue Severity: Fat Layer Exposed Amount of bleeding with debridement: Mild Bleeding Controlled with: Compression and gauze Patient tolerated procedure: Patient tolerated procedure well Post-Debridement Measurements and Additional Note: Post-Debridement Measurements/Treatment [id number] - Nurse 1 - General Ulcer Assessment Start: 09/29/24 10:12 Freq: Status: Active Protocol: KELSEY Activity Type Activity Date Activity User E-sign Co-sign Detail Recorded Client Recorded Date Recorded By Document 09/29/24 10:12 RB [id number] 09/29/24 10:13 RB Document 10/06/24 11:09 RB [id number] 10/06/24 11:11 RB Document 10/13/24 10:17 KW [id number] 10/13/24 10:21 KW 09/29/24 10/06/24 10/13/24 10:12 11:09 10:17 WC - Today's Visit Information Type of service Follow-up Visit Follow-up Visit Follow-up Visit (Physician/DOCUMENT EXAMINER (Physician/DOCUMENT EXAMINER (Physician/DOCUMENT EXAMINER ) ) ) Arrival Mode Ambulatory, Ambulatory, Ambulatory, Walker Walker Walker Transfer Assistance None None Accompanied by Patient Identification Verified (Name & Yes Yes Yes ) Patient Requires Transmission-Based No No Precautions Height and Weight Body Mass Index (BMI) 49.8 49.8 49.8 BMI Classification Obese Obese Obese Vital Signs Temperature (97.8 F-99.1 F) 97.2 F L 96.8 F L 96.8 F L Temperature Source Temporal Temporal Temporal Pulse Rate (60-100) 88 79 69 Pulse Location Monitor Monitor Monitor Respiratory Rate (12-18) 18 18 18 Respiratory rate source Observation Observation Observation Oxygen Delivery Method Room Air Blood Pressure (90/60-120/80) 159/68 H 186/69 H 136/63 H Blood Pressure Mean (mm Hg) 98 108 87 Source Monitor Monitor Monitor Position Semi-Fowlers Semi-Fowlers Semi-Fowlers Blood Pressure Location Left Arm Left Arm Right Forearm History Since Last Visit- (Skip if this is Patient's initial visit) Have you changed medications since your No No No last visit? Any new allergies or adverse reactions No No No Had a fall/change in ADL's that may No No No increase risk of falls Signs or symptoms of abuse and/or No No No neglect since last visit Have you been in the hospital since your No No No last visit? Has dressing in place as prescribed Yes Yes Yes Has compression in place as prescribed Yes Yes Yes Has offloadiing in place as prescribed N/A No N/A Experienced any changes in pain level or No No No management Left Footwear Regular Shoe Regular Shoe Regular Shoe Right Footwear Regular Shoe Regular Shoe Regular Shoe Pain Scale: 0-10 Numeric Is Patient Pain Free? Yes Yes No BILAT LE -Alleviating Factors/Interventions Medicate when due WC - Nurse 1 - General Ulcer Measurement Start: 09/29/24 10:12 Freq: Status: Active Protocol: Activity Type Activity Date Activity User E-sign Co-sign Detail Recorded Client Recorded Date Recorded By Document 09/29/24 10:12 RB [id number] 09/29/24 10:13 RB Document 10/06/24 11:09 RB [id number] 10/06/24 11:11 RB Document 10/13/24 10:17 KW [id number] 10/13/24 10:21 KW 09/29/24 10/06/24 10/13/24 10:12 11:09 10:17 Wound Center Nurse 1 #9 Left Lateral Allen -Combined with other wound No No -Current Size (cm) - Length 0.1 0.1 -Current Size (cm) - Width 0.1 0.1 -Current Size (cm) - Depth 0.1 0.1 -Total Square Cm 0.01 0.01 -Tunneling No No -Undermining/Tunneling No No -Circular Undermining No No -Exudate Amt Small Large -Exudate Type Serosanguineous Serosanguineous -Wound Margin Distinct, Distinct, Indistinct, Non Outline Outline -Visible Attached Attached -Granulation Amt Medium (34-66%) Medium (34-66%) Large (67-100%) -Granulation Quality Hortense Hortense Hortense -Slough/Fibrin Yes Yes -Necrosis Amt Small (1-33%) Medium (34-66%) -Necrotic Tissue Type Adherent Slough Adherent Slough -Structure Exposed N/A N/A -Texture (Adrianna-wound Skin Appearance) Assessed, Localized Edema Excoriation, Localized Edema -Moisture (Adrianna-wound Skin Appearance) Assessed Weeping Maceration -Color (Adrianna-wound Skin Appearance) Assessed Assessed Assessed -Temperature (Adrianna-wound Skin No Abnormality No Abnormality No Abnormality Appearance) (Pt Warm) (Pt Warm) (Pt Warm) -Tenderness on Palpation (Adrianna-wound No No No Skin Appearance) -Ulcer Cleansing Wound Cleanser Wound Cleanser Rinsed/ Irrigated with Saline -Foul Odor after Cleansing No No No -Anesthetic Used 5% Lidocaine 5% Lidocaine Gel Gel Lower Limb Edema Present Yes Yes Right Calf (cm) 55 Right Ankle (cm) 30.2 Left Calf (cm) 54 54.8 50 Left Ankle (cm) 30 30 29.5 WC - Nurse 2 - General Ulcer CM Notes Start: 09/29/24 10:12 Freq: Status: Active Protocol: Activity Type Activity Date Activity User E-sign Co-sign Detail Recorded Client Recorded Date Recorded By Document 09/29/24 10:31 GM [id number] 09/29/24 10:35 GM Document 10/06/24 11:54 GM [id number] 10/06/24 11:55 GM Edit Result 10/06/24 11:54 GM (1) [id number] 10/06/24 12:05 GM Document 10/13/24 10:57 GM [id number] 10/13/24 11:02 GM (1) #9 Left Lateral Allen - Correct Procedure No => Yes - Procedure Performed No => Yes - Type of Procedure => Debridement - Clinical Debridement => Epidermis / Dermis - Tissue Removed => Epidermis,Dermis - Post Debridement (cm) - Length => 4.0 - Post Debridement (cm) - Width => 5.0 - Post Debridement (cm) - Depth => 0.1 - Total Square (Post) (cm) => 20.00 - Area of Debridement (cm) - Length => 4.0 - Area of Debridement (cm) - Width => 5.0 - Total Square (Area) (cm) => 20.00 - Ulcer Cleansing Not Cleansed => Rinsed/Irrigated => with Saline - Debridement - Open, 1st 20sq cm => Yes 09/29/24 10/06/24 10/13/24 10:31 11:54 10:57 Wound Center Nurse 2 #9 Left Lateral Allen -Time 10:31 11:55 -Correct Patient Yes Yes -Correct Side, Site, Position Yes Yes -Correct Procedure No Yes -Procedure Performed No Yes -Type of Procedure Debridement -Clinical Debridement Epidermis / Dermis -Tissue Removed Epidermis, Dermis -Post Debridement (cm) - Length 4.0 -Post Debridement (cm) - Width 5.0 -Post Debridement (cm) - Depth 0.1 -Total Square (Post) (cm) 20.00 -Area of Debridement (cm) - Length 4.0 -Area of Debridement (cm) - Width 5.0 -Total Square (Area) (cm) 20.00 -Tunneling No No -Undermining/Tunneling No No -Circular Undermining No No -Wound/Ulcer Outcome Healed- Not Healed Epithelialized -Ulcer Cleansing Rinsed/ Irrigated with Saline -Foul Odor after Cleansing No No -Bioengineered Tissue No No -Bleeding Controlled with NA NA -Offloading No -Debridement - Open, 1st 20sq cm Yes Pain Scale: 0-10 Numeric Is Patient Pain Free? Yes Yes Yes WC - Nurse 3 - General Ulcer D/C NN Start: 09/29/24 10:12 Freq: Status: Active Protocol: Activity Type Activity Date Activity User E-sign Co-sign Detail Recorded Client Recorded Date Recorded By Document 09/29/24 11:59 KW [id number] 09/29/24 12:00 KW Document 10/06/24 12:32 RB [id number] 10/06/24 12:33 RB Document 10/13/24 11:21 DS [id number] 10/13/24 11:30 DS 09/29/24 10/06/24 10/13/24 11:59 12:32 11:21 Wound Care Center Nurse 3 #9 Left Lateral Allen -Primary Dressing Applied Optilok 5x5 1/2 Silicone Border Foam 6x6 -Optilok 5x5 1/2 1 -Optilok 6.5x10 0 -Silicone Border Foam 6x6 1 lle -Primary Dressing Applied Optilok 6.5x10 -Optilok 6.5x10 1 BLE -Lotion applied to leg before Yes compression wrap -Tubular Bandage Double Layer Double Layer Double Layer -Size of Tubigrip Used Size F Size F Size F -Size F ($) 4 4 4 Treatment Response Procedure Tolerated Well Pain Scale: 0-10 Numeric Is Patient Pain Free? Yes Yes Yes WC - Visit Discharge Discharge Condition Stable Stable Stable Ambulatory Status Ambulatory, Ambulatory, Ambulatory, Walker Walker Walker Transportation Private Auto Private Auto Private Auto Medication Reconcilliation completed & No No provided to patient/care provider Clinical Summary of Care Provided Yes Yes Assessment/Plan Assessment/Plan (1) Non-pressure chronic ulcer left lower leg, limited to breakdown skin: CODE(S): L97.921 - Non-pressure chronic ulcer of unspecified part of left lower leg limited to breakdown of skin (2) Venous insufficiency: CODE(S): I87.2 - Venous insufficiency (chronic) (peripheral) (3) Edema of both lower extremities: CODE(S): R60.0 - Localized edema (4) Lymphedema: CODE(S): I89.0 - Lymphedema, not elsewhere classified (5) Essential hypertension: CODE(S): I10 - Essential (primary) hypertension (6) Morbid obesity with BMI of 45.0-49.9, adult: CODE(S): E66.01 - Morbid (severe) obesity due to excess calories; Z68.42 - Body mass index [BMI] 45.0-49.9, adult (7) Venous stasis 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: CODE(S): I83.023 - Varicose veins of left lower extremity with ulcer of ankle; L97.321 - Non-pressure 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 QUALIFIERS: Varicose vein presence: with varicose veins Qualified Code(s): I83.023 - Varicose veins of left lower extremity with ulcer of ankle; L97.321 - Non-pressure 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 (8) Debility: CODE(S): R53.81 - Other malaise (9) Osteoarthritis: CODE(S): M19.90 - Unspecified osteoarthritis, unspecified site QUALIFIERS: Osteoarthritis location: multiple joints Osteoarthritis type: primary Qualified Code(s): M15.9 - Polyosteoarthritis, unspecified (10) COPD (chronic obstructive pulmonary disease): CODE(S): J44.9 - Chronic obstructive pulmonary disease, unspecified QUALIFIERS: COPD type: unspecified COPD Qualified Code(s): J44.9 - Chronic obstructive pulmonary disease, unspecified (11) Chronic hypoxemic respiratory failure: CODE(S): J96.11 - Chronic respiratory failure with hypoxia (12) Pulmonary hypertension: CODE(S): I27.20 - Pulmonary hypertension, unspecified (13) Hypothyroidism: CODE(S): E03.9 - Hypothyroidism, unspecified QUALIFIERS: Hypothyroidism type: unspecified Qualified Code(s): E03.9 - Hypothyroidism, unspecified (14) Type 2 diabetes mellitus: CODE(S): E11.9 - Type 2 diabetes mellitus without complications QUALIFIERS: Diabetes mellitus assisted insulin use: without assisted use Diabetes mellitus complication status: with other specified complication Qualified Code(s): E11.69 - Type 2 diabetes mellitus with other specified complication (15) DOLORES (obstructive sleep apnea): CODE(S): G47.33 - Obstructive sleep apnea (adult) (pediatric) PLAN: Plan Evaluation and debridement performed today in clinic as annotated above. At home wound-care instructions: Will continue to dress her left lower leg with super absorber and roll gauze changed daily for heavy drainage. She was instructed to keep dressings clean and dry. Will have her use lymphedema pumps for 60 minutes 2-3 times daily. Off-loading: The patient was instructed to avoid pressure and friction on the affected areas. Reposition every 2 hours at minimum. Avoid prolonged standing and/or dangling of legs. When seated, feet should be elevated at chest level. Frequent ambulation is encouraged. Diet: Patient encouraged to increase protein intake while taking caution to avoid high carbohydrate and/or sugar intake. Encouraged weight loss. Labs/cultures/imaging: Wound Culture of left allen ulcer showed pseudomonas and MRSA. Ciprofloxacin prescribed. Venous ultrasound showed incompetence of veins of left lower extremity and vascular performed an ablation on 07/27/2024. Culture showed E. faecalis, anaerobic bacteria and Pseudomonas advised to restart Ciprofloxacin and Flagyl was prescribed for Anaerobic bacteria. 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 She has been referred to infectious disease and they will see her 09/27/2024. We are going to try treating her with Bactrim DS until she sees Dr. Johnson. She is tolerating this. Will complete Bactrim DS. Encouraged her to get her CPAP mask to improve DOLORES and pulmonary HTN treatment compliance which is adding to her decompensated lymphedema. Follow-up: Will have her follow up in 2 weeks. Return sooner or report to the emergency room should symptoms worsen, or new symptoms arise. Note: [employer] speech recognition energy and sustainability manager software was used to create portions of this document. Sound-alike and misspelled words, as well as other energy and sustainability manager errors may be contained in the documentation.
== END 2024-10-18 23:59 | disposition home or self-care (01) ==
LOC: WC 10:00
PROVIDERS: PCP Internal Medicine; Referring Provider Internal Medicine; Visit Provider Family Medicine
DX: I83.023 Varicose veins of left lower extremity with ulcer of ankle (principal); L97.321 Non-pressure chronic 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; J96.11 Chronic respiratory failure with hypoxia; I50.9 Heart failure, unspecified; I27.20 Pulmonary hypertension, unspecified; I11.0 Hypertensive heart disease with heart failure; J44.9 Chronic obstructive pulmonary disease, unspecified; E66.01 Morbid (severe) obesity due to excess calories; Z68.42 Body mass index [BMI] 45.0-49.9, adult; E11.9 Type 2 diabetes mellitus without complications; R60.0 Localized edema; M19.90 Unspecified osteoarthritis, unspecified site; G47.33 Obstructive sleep apnea (adult) (pediatric); I89.0 Lymphedema, not elsewhere classified; Z86.718 Personal history of other venous thrombosis and embolism; Z79.01 Long term (current) use of anticoagulants
CPT/HCPCS: 97597; 99213; G0463

== ENCOUNTER → 2024-10-16 | Outpatient (CLI) | payer MEDICARE, MEDICAID, SELFPAY ==
--- NOTE | 2024-10-16 13:15 | CDU_ITS ---
Reason For Study Reason For Study: Dizziness Rt. Velocities/BP Lt. Velocities/BP Prox CCA 98.4/14.4 cm/sec. Prox CCA 80.9/12.2 cm/sec. Mid CCA 63.7/10.8 cm/sec. Mid CCA 73.6/15.8 cm/sec. Dist CCA 78.4/23.6 cm/sec. Dist CCA 67.0/15.5 cm/sec. Prox ICA 76.4/20.7 cm/sec. Prox ICA 91.6/19.2 cm/sec. Mid ICA 94.8/21.7 cm/sec. Mid ICA 80.6/14.5 cm/sec. Dist ICA 85.7/21.7 cm/sec. Dist ICA 62.7/18.2 cm/sec. Rt. ICA/CCA = 1.5. Lt. ICA/CCA = 1.2. Prox ECA 120.4/5.3 cm/sec. Prox ECA 109.4/3.5 cm/sec. Rt. Vert. 54.6/14.4 cm/sec. Lt. Vert. 20.8/4.8 cm/sec. Right Extracranial There is intimal thickening but no significant atherosclerotic plaque noted in the right common carotid artery. There is heterogeneous, irregular atherosclerotic plaque noted in the right internal carotid artery. There is intimal thickening but no significant atherosclerotic plaque noted in the right external carotid artery. Antegrade flow is noted in the right vertebral artery. Left Extracranial There is intimal thickening but no significant atherosclerotic plaque noted in the left common carotid artery. There is heterogeneous, irregular atherosclerotic plaque noted in the left internal carotid artery. There is intimal thickening but no significant atherosclerotic plaque noted in the left external carotid artery. Antegrade flow is noted in the left vertebral artery. Procedure Carotid Duplex [id number]. This is a Carotid Duplex examination using B-mode, color flow and specral Doppler. The exam was diagnostic. Exam performed in department. VL/Carotid Duplex Ultrasound Interpretation Summary Mild (<50%) stenosis right extracranial internal carotid. Mild (<50%) stenosis left extracranial internal carotid. Patent and antegrade vertebrals bilaterally. Ordering Physician: Zainab Cherry Referring Physician: Luis Cortés Performed By: Micah Allred RVT
[2024-10-16 14:58] LABS: Absolute Lymphocyte Count 1.22 X10^3/uL (0.83-4.51); Absolute Neutrophil Count 4.2 X10^3/uL (2.0-7.7); Basophil# 0.06 X10^3/uL; Eosinophil# 0.29 X10^3/uL; Eosinophils% 4.6 % (0-5); Hematocrit 41.2 % (37-47); Hemoglobin 12.8 g/dL (12.0-15.0); Lymphocyte # 1.22 X10^3/ul (0.83-4.51); Lymphocyte % 19.5 % (19-41); Mean Corp Hgb Conc 31.1 g/dL (32-36); Mean Corpuscular Hgb 25.8 pg (27.0-32.0); Mean Corpuscular Volume 82.9 fL (81-99); Mean Platelet Vol. 9.4 fl (6.2-12.0); Monocyte# 0.45 X10^3/uL; Monocyte% 7.2 % (0-10); NRBC Flagged by Analyzer 0 % (0-5); Neutrophil % 67.2 % (47-70); Platelet Count 247 K/mm3 (150-450); RBC Distribution Width CV 15.4 % (11.6-14.6); RBC Distribution Width SD 46.7 fl (35.1-43.9); Red Blood Count 4.97 M/mm3 (4.2-5.4); White Blood Count 6.3 K/mm3 (4.4-11.0)
[2024-10-16 15:44] LABS: AST(SGOT) 19 U/L (<=31); Alanine Aminotransfer ALT/SGPT 8 U/L (<=34); Albumin, Serum 3.6 g/dL (3.4-4.8); Alkaline Phosphatase 101 U/L (35-104); Anion Gap 10 (5-15); BUN 18 mg/dL (4-19); BUN/Creat Ratio 19.6 RATIO (10-20); Carbon Dioxide 26.1 mmol/L (21.0-32.0); Chloride 104 mmol/L (98-108); Cholesterol 179 mg/dL (<=200); Creatinine, Serum 0.94 mg/dL (0.70-1.20); EST Glomerular Filtration Rate 64 (>60); Globulin 3.5 g/dL (2.2-4.2); Glucose 119 mg/dL (70-99); High Density Lipoprotein 38 mg/dL; Low Density Lipoprotein Calc. 98 mg/dL; Potassium 4.3 mmol/L (3.3-5.1); Protein, Total 7.1 g/dL (5.9-8.4); Sodium Level 140 mmol/L (133-145); Triglycerides 214 mg/dL; Very Low Density Lipoprotein 43 mg/dL (5-40); cholesterol:hdl ratio screen 4.72
== END | disposition home or self-care (01) ==
PROVIDERS: PCP Internal Medicine; Referring Provider Nurse Practitioner Gerontology; Visit Provider Nurse Practitioner Gerontology
DX: R42 Dizziness and giddiness (principal); I10 Essential (primary) hypertension; E78.5 Hyperlipidemia, unspecified
CPT/HCPCS: 36415; 80053; 80061; 85025; 93880

== ENCOUNTER → 2024-11-06 | Outpatient (CLI) | payer MEDICARE, MEDICAID, SELFPAY ==
[2024-11-06 18:31] LABS: Hemoglobin A1c 6.7 % (<=5.6)
== END | disposition home or self-care (01) ==
LOC: BIMLAB 11:42
PROVIDERS: PCP Internal Medicine; Referring Provider Internal Medicine; Visit Provider Internal Medicine
DX: E03.9 Hypothyroidism, unspecified (principal); E11.9 Type 2 diabetes mellitus without complications
CPT/HCPCS: 36415; 80048; 83036; 84443

== ENCOUNTER 2024-11-14 10:02 | Outpatient (CLI) | payer MEDICARE, MEDICAID, SELFPAY ==
[2024-11-14 10:25] VITALS: BP 155/56; PULSE 66; RESP 20; TEMP 35.7; O2SAT 95; BMI 49.7
== END 2024-11-14 23:59 | disposition home or self-care (01) ==
PROVIDERS: PCP Internal Medicine; Referring Provider Family Medicine; Visit Provider Family Medicine
DX: Z45.2 Encounter for adjustment and management of vascular access device (principal); L97.919 Non-pressure chronic ulcer of unspecified part of right lower leg with unspecified severity; L97.929 Non-pressure chronic ulcer of unspecified part of left lower leg with unspecified severity; I83.019 Varicose veins of right lower extremity with ulcer of unspecified site; I83.029 Varicose veins of left lower extremity with ulcer of unspecified site; L03.116 Cellulitis of left lower limb; L02.416 Cutaneous abscess of left lower limb
CPT/HCPCS: 96365; 36569; A4216

== ENCOUNTER 2024-11-14 11:54 | Outpatient (CLI) | payer MEDICARE, MEDICAID, SELFPAY ==
[2024-11-14 12:05] VITALS: BP 134/61; PULSE 64; RESP 18; TEMP 35.7; O2SAT 94; BMI 49.7
[2024-11-14] MEDS: WATER IVPB (12:42)
[2024-11-14] MEDS: GENTAMICIN IVPB (12:42)
[2024-11-14] MEDS: DEXTROSE 5% IVPB (12:42)
[2024-11-14 13:40] VITALS: BP 126/57; PULSE 76; RESP 16; TEMP 35.9; O2SAT 94
== END 2024-11-14 23:59 | disposition home or self-care (01) ==
LOC: MEDOUTP 11:54
PROVIDERS: PCP Internal Medicine; Referring Provider Family Medicine; Visit Provider Family Medicine
DX: L03.116 Cellulitis of left lower limb (principal); L97.919 Non-pressure chronic ulcer of unspecified part of right lower leg with unspecified severity; L97.929 Non-pressure chronic ulcer of unspecified part of left lower leg with unspecified severity; I83.019 Varicose veins of right lower extremity with ulcer of unspecified site; I83.029 Varicose veins of left lower extremity with ulcer of unspecified site; L02.416 Cutaneous abscess of left lower limb
CPT/HCPCS: 96365; A4216

== ENCOUNTER 2024-11-15 10:45 | Outpatient (CLI) | payer MEDICARE, MEDICAID, SELFPAY ==
[2024-11-15] MEDS: DEXTROSE 5% IVPB (11:20)
[2024-11-15] MEDS: WATER IVPB (11:20)
[2024-11-15] MEDS: GENTAMICIN IVPB (11:20)
[2024-11-15 11:21] VITALS: BP 135/71; PULSE 66; RESP 16; TEMP 35.7; O2SAT 96; BMI 49.7
== END 2024-11-15 23:59 | disposition home or self-care (01) ==
PROVIDERS: PCP Internal Medicine; Referring Provider Family Medicine; Visit Provider Family Medicine
DX: Z00.00 Encounter for general adult medical examination without abnormal findings (principal)
CPT/HCPCS: 96365; A4216

== ENCOUNTER 2024-11-16 07:52 | Outpatient (CLI) | payer MEDICARE, MEDICAID, SELFPAY ==
[2024-11-16 08:04] VITALS: BP 115/54; PULSE 75; RESP 16; TEMP 35.5; O2SAT 95; BMI 49.7
[2024-11-16] MEDS: WATER IVPB (08:04)
[2024-11-16] MEDS: GENTAMICIN IVPB (08:04)
[2024-11-16] MEDS: DEXTROSE 5% IVPB (08:04)
[2024-11-16 09:00] VITALS: BP 104/50; PULSE 67; RESP 16; TEMP 35.7; O2SAT 92
[2024-11-16 14:41] VITALS: BP 128/68; PULSE 77; RESP 16; TEMP 35.7; O2SAT 93
[2024-11-16 14:53] LABS: Absolute Lymphocyte Count 1.57 X10^3/uL (0.83-4.51); Absolute Neutrophil Count 4.9 X10^3/uL (2.0-7.7); Basophil# 0.07 X10^3/uL; Basophil% 0.9 % (0-1); Eosinophil# 0.34 X10^3/uL; Eosinophils% 4.5 % (0-5); Hematocrit 39.7 % (37-47); Hemoglobin 12.4 g/dL (12.0-15.0); Lymphocyte # 1.57 X10^3/ul (0.83-4.51); Lymphocyte % 20.9 % (19-41); Mean Corp Hgb Conc 31.2 g/dL (32-36); Mean Corpuscular Hgb 25.9 pg (27.0-32.0); Mean Corpuscular Volume 83.1 fL (81-99); Mean Platelet Vol. 9.6 fl (6.2-12.0); Monocyte# 0.58 X10^3/uL; Monocyte% 7.7 % (0-10); NRBC Flagged by Analyzer 0 % (0-5); Neutrophil # 4.92 X10^3/uL (2.7-7.7); Neutrophil % 65.5 % (47-70); Platelet Count 207 K/mm3 (150-450); RBC Distribution Width CV 15.6 % (11.6-14.6); RBC Distribution Width SD 47.4 fl (35.1-43.9); Red Blood Count 4.78 M/mm3 (4.2-5.4); White Blood Count 7.5 K/mm3 (4.4-11.0)
[2024-11-16 15:00] LABS: Erythrocyte Sedimentation Rate 28 mm/hr (0-30)
[2024-11-16 15:34] LABS: ALB/GLOB Ratio 1.1 RATIO (0.9-2.4); AST(SGOT) 32 U/L (<=31); Alanine Aminotransfer ALT/SGPT 19 U/L (<=34); Albumin, Serum 3.4 g/dL (3.4-4.8); Alkaline Phosphatase 96 U/L (35-104); Anion Gap 10 (5-15); BUN 14 mg/dL (4-19); BUN/Creat Ratio 16.5 RATIO (10-20); Calcium,Total 8.3 mg/dL (7.6-11.0); Chloride 103 mmol/L (98-108); Creatinine, Serum 0.85 mg/dL (0.70-1.20); EST Glomerular Filtration Rate 71 (>60); Estimated Creatinine Clearance 82.57 ml/min (50-250); Globulin 3.1 g/dL (2.2-4.2); Glucose 137 mg/dL (70-99); Potassium 4.2 mmol/L (3.3-5.1); Protein, Total 6.4 g/dL (5.9-8.4); Sodium Level 140 mmol/L (133-145); Total Bilirubin 0.41 mg/dL (0.00-1.30)
[2024-11-16 15:35] LABS: Gentamicin, Random 9.8 ug/mL
== END 2024-11-16 23:59 | disposition home or self-care (01) ==
PROVIDERS: PCP Internal Medicine; Referring Provider Family Medicine; Visit Provider Family Medicine
DX: L03.116 Cellulitis of left lower limb (principal)
CPT/HCPCS: 96365; 36592; 80053; 80170; 85025; 85652; 86140; A4216

== ENCOUNTER 2024-11-17 08:49 | Outpatient (CLI) | payer MEDICARE, MEDICAID, SELFPAY | END 2024-11-17 23:59 | disposition home or self-care (01) | LOC: MEDOUTP 08:50 | PROVIDERS: PCP Internal Medicine; Referring Provider Family Medicine; Visit Provider Family Medicine | DX: L03.116 Cellulitis of left lower limb (principal) ==

== ENCOUNTER 2024-11-17 10:15 | Outpatient (RCR) | payer MEDICARE, MEDICAID, SELFPAY ==
[2024-10-19 00:34] VITALS: BP 136/63; PULSE 69; RESP 18; TEMP 36; O2SAT 94; BMI 49.8
[2024-10-27 10:04] VITALS: BP 153/68; RESP 19; TEMP 36; BMI 49.8
--- NOTE | 2024-10-27 15:34 | PCM.WC.PN ---
History of Present Illness Date of Service: 10/27/24 Chief Complaint: Left LE ulcer, bilateral lower extremity swelling History of Wound: Liz is a pleasant 74 yo woman that presents to the wound center for bilateral lower extremity edema and blisters and drainage of her bilateral lower extremities. She has had increased edema the last 2 weeks and her legs started seeping a few days ago. She has been wearing her tubigrip compression and had been using the lymphedema pumps until they started seeping fluid. She tries to elevate her legs when she is sitting but is not always consistent with doing this. She has been wrapping her leg with gauze when it is seeping but otherwise has not been doing any regular dressings. Patient has been treated at the wound center in the past for similar wounds, most recently October 2023. She has also been seen in the vascular surgery clinic where she was evaluated her for BLE DVT and venous insufficiency. 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 GSV ablation has been done to her right lower leg. She has received lymphedema pumps that were ordered during her last treatment course and has been using these. Last venous study was 03/2022. Last A1C 01/2023 was 6.4%. Last TSH - 01/2022 Patient's medical history is also significant for CHF, COPD, T2DM, lymphedema. She has a CPAP but has not been using this due to needing a new mask. She states that a prescription was to be sent and she never received the mask. Her current mask has a hole in it. Subjective Subjective Liz returns today for treatment of edema to bilateral lower legs. She underwent venous ablation of left lower leg on 07/27/2024. She has been elevating her legs and using lymphedema pumps as directed. She is tolerating Superabsorber for heavy drainage. She does continue to have drainage from left lateral lower leg and less erythema. She denies fever, chills. Objective Data Objective Data Vital Signs: Vital Signs Temp Pulse Resp BP Pulse Ox O2 Del Method 96.8 F L 69 19 H 153/68 H 94 Room Air 10/27/24 10:04 10/19/24 00:34 10/27/24 10:04 10/27/24 10:04 10/19/24 00:34 10/27/24 10:04 Oxygen Delivery Method Room Air Weight: 140.16 kg Body Mass Index (BMI) 49.8 Physical Exam Const alert, oriented x3, no apparent distress and healthy appearing General Appearance: cooperative; Negative for combative or lethargic Orientation / Consciousness: awake Exam Limitations: no limitations Nutritional Appearance: obese HEENT normocephalic and head/scalp atraumatic Eyes EOMs intact bilaterally General Eye: normal appearance of both eyes Neck full ROM General: trachea midline Lymph Lymphatic: lymphedema severe and pitting Resp normal respiratory effort and no use of accessory muscles Effort and Inspection: Negative for labored, stridor or audible wheezes Cardio regular rate and regular rhythm Back/Spine Cervical Spine: cervical ROM normal Extremity full ROM, normal capillary refill and no clubbing, cyanosis or edema General Extremity: edema bilateral lower extremity Details: severe (with skin changes associated with lymphedema, thickened nodular appearance from mid allen to ankle) Skin no rashes or lesions noted General Skin Exam: erythema, venous stasis and dermatitis Wounds: wounds noted Wound Narrative: as in clinical panel, mildly decreased erythema and light serous drainage from lateral lower leg, nodular appearance of skin associated with lymphedema Neuro oriented x3, CN's II-XII intact bilaterally, no focal motor deficits and no sensory deficits noted Psych thought process normal, cooperative, affect normal, speech normal and activity/motor behavior normal Debridement Note Debridement Note Wound debrided: left lateral leg Laterality: Left Type of Debridement: Selective debridement Anesthesia Used: 4% Lidocaine Solution Depth: Down to and including healthy tissue Instrument Used: - (gauze) Tissue Removed: Yellow slough, devitalized tissue Severity: Fat Layer Exposed Amount of bleeding with debridement: Mild Bleeding Controlled with: Compression and gauze Patient tolerated procedure: Patient tolerated procedure well Post-Debridement Measurements and Additional Note: Post-Debridement Measurements/Treatment - Nurse 1 - General Ulcer Assessment Start: 10/27/24 10:04 Freq: Status: Active Protocol: KELSEY Activity Type Activity Date Activity User E-sign Co-sign Detail Recorded Client Recorded Date Recorded By Document 10/27/24 10:04 [id number] 10/27/24 10:10 10/27/24 10:04 - Today's Visit Information Type of service Follow-up Visit (Physician/SENIOR ADMINISTRATIVE ASSOCIATE ) Arrival Mode Ambulatory, Wheelchair Patient Identification Verified (Name & Yes ) Patient Requires Transmission-Based No Precautions Height and Weight Body Mass Index (BMI) 49.8 BMI Classification Obese Vital Signs Temperature (97.8 F-99.1 F) 96.8 F L Temperature Source Temporal Pulse Location Monitor Respiratory Rate (12-18) 19 H Respiratory rate source Observation Oxygen Delivery Method Room Air Blood Pressure (90/60-120/80) 153/68 H Blood Pressure Mean (mm Hg) 96 Source Monitor Position Sitting Blood Pressure Location Left Arm History Since Last Visit- (Skip if this is Patient's initial visit) Have you changed medications since your No last visit? Any new allergies or adverse reactions No Had a fall/change in ADL's that may No increase risk of falls Signs or symptoms of abuse and/or No neglect since last visit Have you been in the hospital since your No last visit? Has dressing in place as prescribed Yes Has compression in place as prescribed Yes Has offloadiing in place as prescribed N/A Experienced any changes in pain level or No management Left Footwear Regular Shoe Right Footwear Regular Shoe Pain Scale: 0-10 Numeric Is Patient Pain Free? Yes - Nurse 1 - General Ulcer Measurement Start: 10/27/24 10:04 Freq: Status: Active Protocol: Activity Type Activity Date Activity User E-sign Co-sign Detail Recorded Client Recorded Date Recorded By Document 10/27/24 10:04 [id number] 10/27/24 10:10 10/27/24 10:04 Wound Center Nurse 1 Lower Limb Edema Present No Right Calf (cm) 53.5 Right Ankle (cm) 31.5 Left Calf (cm) 48.0 Left Ankle (cm) 31.5 - Nurse 2 - General Ulcer CM Notes Start: 10/27/24 10:04 Freq: Status: Active Protocol: Activity Type Activity Date Activity User E-sign Co-sign Detail Recorded Client Recorded Date Recorded By Document 10/27/24 11:11 [id number] 10/27/24 11:11 10/27/24 11:11 Pain Scale: 0-10 Numeric Is Patient Pain Free? Yes - Nurse 3 - General Ulcer D/C NN Start: 10/27/24 10:04 Freq: Status: Active Protocol: Activity Type Activity Date Activity User E-sign Co-sign Detail Recorded Client Recorded Date Recorded By Document 10/27/24 11:34 [id number] 10/27/24 11:36 KW 10/27/24 11:34 Wound Care Center Nurse 3 lle -Primary Dressing Applied Optilok 8x12 -Optilok 8x12 1 BLE -Multi-Layered Wrap Application Unna Boot - Bilateral -Other USED 2 BOXES OF THE UNNA WRAP -Unna- Bilat (Qty applied) 1 Pain Scale: 0-10 Numeric Is Patient Pain Free? Yes WC - Visit Discharge Discharge Condition Stable Ambulatory Status Ambulatory, Walker Transportation Private Auto Medication Reconcilliation completed & No provided to patient/care provider Clinical Summary of Care Provided Yes Assessment/Plan Assessment/Plan (1) Non-pressure chronic ulcer left lower leg, limited to breakdown skin: CODE(S): L97.921 - Non-pressure chronic ulcer of unspecified part of left lower leg limited to breakdown of skin (2) Venous insufficiency: CODE(S): I87.2 - Venous insufficiency (chronic) (peripheral) (3) Edema of both lower extremities: CODE(S): R60.0 - Localized edema (4) Lymphedema: CODE(S): I89.0 - Lymphedema, not elsewhere classified (5) Essential hypertension: CODE(S): I10 - Essential (primary) hypertension (6) Morbid obesity with BMI of 45.0-49.9, adult: CODE(S): E66.01 - Morbid (severe) obesity due to excess calories; Z68.42 - Body mass index [BMI] 45.0-49.9, adult (7) Venous stasis 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: CODE(S): I83.023 - Varicose veins of left lower extremity with ulcer of ankle; L97.321 - Non-pressure 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 QUALIFIERS: Varicose vein presence: with varicose veins Qualified Code(s): I83.023 - Varicose veins of left lower extremity with ulcer of ankle; L97.321 - Non-pressure 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 (8) Debility: CODE(S): R53.81 - Other malaise (9) Osteoarthritis: CODE(S): M19.90 - Unspecified osteoarthritis, unspecified site QUALIFIERS: Osteoarthritis location: multiple joints Osteoarthritis type: primary Qualified Code(s): M15.9 - Polyosteoarthritis, unspecified (10) COPD (chronic obstructive pulmonary disease): CODE(S): J44.9 - Chronic obstructive pulmonary disease, unspecified QUALIFIERS: COPD type: unspecified COPD Qualified Code(s): J44.9 - Chronic obstructive pulmonary disease, unspecified (11) Chronic hypoxemic respiratory failure: CODE(S): J96.11 - Chronic respiratory failure with hypoxia (12) Pulmonary hypertension: CODE(S): I27.20 - Pulmonary hypertension, unspecified (13) Hypothyroidism: CODE(S): E03.9 - Hypothyroidism, unspecified QUALIFIERS: Hypothyroidism type: unspecified Qualified Code(s): E03.9 - Hypothyroidism, unspecified (14) Type 2 diabetes mellitus: CODE(S): E11.9 - Type 2 diabetes mellitus without complications QUALIFIERS: Diabetes mellitus longterm insulin use: without supervisor grinding use Diabetes mellitus complication status: with other specified complication Qualified Code(s): E11.69 - Type 2 diabetes mellitus with other specified complication (15) DOLORES (obstructive sleep apnea): CODE(S): G47.33 - Obstructive sleep apnea (adult) (pediatric) PLAN: Plan Evaluation and debridement performed today in clinic as annotated above. At home wound-care instructions: Will continue to dress her left lower leg with super absorber and roll gauze changed daily for heavy drainage. She was instructed to keep dressings clean and dry. Will have her use lymphedema pumps for 60 minutes 2-3 times daily. Off-loading: The patient was instructed to avoid pressure and friction on the affected areas. Reposition every 2 hours at minimum. Avoid prolonged standing and/or dangling of legs. When seated, feet should be elevated at chest level. Frequent ambulation is encouraged. Diet: Patient encouraged to increase protein intake while taking caution to avoid high carbohydrate and/or sugar intake. Encouraged weight loss. Labs/cultures/imaging: Wound Culture of left allen ulcer showed pseudomonas and MRSA. Ciprofloxacin prescribed. Venous ultrasound showed incompetence of veins of left lower extremity and vascular performed an ablation on 07/27/2024. Culture showed E. faecalis, anaerobic bacteria and Pseudomonas advised to restart Ciprofloxacin and Flagyl was prescribed for Anaerobic bacteria. 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 She has been referred to infectious disease and they will see her 09/27/2024. We are going to try treating her with Bactrim DS until she sees Dr. Johnson. She is tolerating this. Will complete Bactrim DS. Encouraged her to get her CPAP mask to improve DOLORES and pulmonary HTN treatment compliance which is adding to her decompensated lymphedema. Follow-up: Will have her follow up in 2 weeks. Return sooner or report to the emergency room should symptoms worsen, or new symptoms arise. Note: [employer] speech recognition lumber straightener software was used to create portions of this document. Sound-alike and misspelled words, as well as other lumber straightener errors may be contained in the documentation.
[2024-11-03 10:36] VITALS: BP 161/85; PULSE 79; RESP 18; TEMP 35.5; BMI 49.8
--- NOTE | 2024-11-03 14:19 | PCM.WC.PN ---
History of Present Illness Date of Service: 11/03/24 Chief Complaint: Left LE ulcer, bilateral lower extremity swelling History of Wound: Liz is a pleasant 74 yo woman that presents to the wound center for bilateral lower extremity edema and blisters and drainage of her bilateral lower extremities. She has had increased edema the last 2 weeks and her legs started seeping a few days ago. She has been wearing her tubigrip compression and had been using the lymphedema pumps until they started seeping fluid. She tries to elevate her legs when she is sitting but is not always consistent with doing this. She has been wrapping her leg with gauze when it is seeping but otherwise has not been doing any regular dressings. Patient has been treated at the wound center in the past for similar wounds, most recently October 2023. She has also been seen in the vascular surgery clinic where she was evaluated her for BLE DVT and venous insufficiency. 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 GSV ablation has been done to her right lower leg. She has received lymphedema pumps that were ordered during her last treatment course and has been using these. Last venous study was 03/2022. Last A1C 01/2023 was 6.4%. Last TSH - 01/2022 Patient's medical history is also significant for CHF, COPD, T2DM, lymphedema. She has a CPAP but has not been using this due to needing a new mask. She states that a prescription was to be sent and she never received the mask. Her current mask has a hole in it. Subjective Subjective Liz returns today for treatment of edema to bilateral lower legs. She underwent venous ablation of left lower leg on 07/27/2024. She has been elevating her legs and using lymphedema pumps as directed. She tlerated UNNA boot treatment this past week but has had worsening of appearance of skin and of left lateral lower leg and mild odor. She does continue to have drainage from left lateral lower leg and less erythema. She denies fever, chills. Objective Data Objective Data Vital Signs: Vital Signs Temp Pulse Resp BP Pulse Ox O2 Del Method 96 F L 79 18 161/85 H 94 Room Air 11/03/24 10:36 11/03/24 10:36 11/03/24 10:36 11/03/24 10:36 10/19/24 00:34 10/27/24 10:04 Oxygen Delivery Method Room Air Weight: 140.16 kg Body Mass Index (BMI) 49.8 Physical Exam Const alert, oriented x3, no apparent distress and healthy appearing General Appearance: cooperative; Negative for combative or lethargic Orientation / Consciousness: awake Exam Limitations: no limitations Nutritional Appearance: obese HEENT normocephalic and head/scalp atraumatic Eyes EOMs intact bilaterally General Eye: normal appearance of both eyes Neck full ROM General: trachea midline Lymph Lymphatic: lymphedema severe and pitting Resp normal respiratory effort and no use of accessory muscles Effort and Inspection: Negative for labored, stridor or audible wheezes Cardio regular rate and regular rhythm Back/Spine Cervical Spine: cervical ROM normal Extremity full ROM, normal capillary refill and no clubbing, cyanosis or edema General Extremity: edema bilateral lower extremity Details: severe (with skin changes associated with lymphedema, thickened nodular appearance from mid allen to ankle) Skin no rashes or lesions noted General Skin Exam: erythema, venous stasis and dermatitis Wounds: wounds noted Wound Narrative: as in clinical panel, mildly decreased erythema and light serous drainage from left lateral lower leg, nodular appearance of skin associated with lymphedema Neuro oriented x3, CN's II-XII intact bilaterally, no focal motor deficits and no sensory deficits noted Psych thought process normal, cooperative, affect normal, speech normal and activity/motor behavior normal Debridement Note Debridement Note Wound debrided: lateral left lower leg Laterality: Left No debridement was completed: No debridement was completed today Post-Debridement Measurements and Additional Note: Post-Debridement Measurements/Treatment - Nurse 1 - General Ulcer Assessment Start: 10/27/24 10:04 Freq: Status: Active Protocol: KELSEY Activity Type Activity Date Activity User E-sign Co-sign Detail Recorded Client Recorded Date Recorded By Document 10/27/24 10:04 [id number] 10/27/24 10:10 Document 11/03/24 10:36 RB [id number] 11/03/24 10:38 RB 10/27/24 11/03/24 10:04 10:36 - Today's Visit Information Type of service Follow-up Visit Follow-up Visit (Physician/OIL SPREADER OPERATOR (Physician/OIL SPREADER OPERATOR ) ) Arrival Mode Ambulatory, Ambulatory, Wheelchair Walker Transfer Assistance Manual,None Patient Identification Verified (Name & Yes Yes ) Patient Requires Transmission-Based No No Precautions Height and Weight Body Mass Index (BMI) 49.8 49.8 BMI Classification Obese Obese Vital Signs Temperature (97.8 F-99.1 F) 96.8 F L 96 F L Temperature Source Temporal Temporal Pulse Rate (60-100) 79 Pulse Location Monitor Monitor Respiratory Rate (12-18) 19 H 18 Respiratory rate source Observation Observation Oxygen Delivery Method Room Air Blood Pressure (90/60-120/80) 153/68 H 161/85 H Blood Pressure Mean (mm Hg) 96 110 Source Monitor Monitor Position Sitting Semi-Fowlers Blood Pressure Location Left Arm Left Arm History Since Last Visit- (Skip if this is Patient's initial visit) Have you changed medications since your No No last visit? Any new allergies or adverse reactions No No Had a fall/change in ADL's that may No No increase risk of falls Signs or symptoms of abuse and/or No No neglect since last visit Have you been in the hospital since your No No last visit? Has dressing in place as prescribed Yes Yes Has compression in place as prescribed Yes Yes Has offloadiing in place as prescribed N/A N/A Experienced any changes in pain level or No No management Left Footwear Regular Shoe Right Footwear Regular Shoe Pain Scale: 0-10 Numeric Is Patient Pain Free? Yes Yes - Nurse 1 - General Ulcer Measurement Start: 10/27/24 10:04 Freq: Status: Active Protocol: Activity Type Activity Date Activity User E-sign Co-sign Detail Recorded Client Recorded Date Recorded By Document 10/27/24 10:04 [id number] 10/27/24 10:10 Document 11/03/24 10:36 [id number] 11/03/24 10:38 RB 10/27/24 11/03/24 10:04 10:36 Wound Center Nurse 1 lle -Combined with other wound No -Current Size (cm) - Length 0.1 -Current Size (cm) - Width 0.1 -Current Size (cm) - Depth 0.1 -Total Square Cm 0.01 -Photo Taken No -Tunneling No -Undermining/Tunneling No -Circular Undermining No -Exudate Amt Large -Exudate Type Serosanguineous -Wound Margin Distinct, Outline Attached -Granulation Amt Large (67-100%) -Granulation Quality [place] -Slough/Fibrin Yes -Necrosis Amt Small (1-33%) -Necrotic Tissue Type Adherent Slough -Structure Exposed N/A -Texture (Adrianna-wound Skin Appearance) Assessed -Moisture (Adrianna-wound Skin Appearance) Maceration -Color (Adrianna-wound Skin Appearance) Assessed -Temperature (Adrianna-wound Skin No Abnormality Appearance) (Pt Warm) -Tenderness on Palpation (Adrianna-wound No Skin Appearance) -Ulcer Cleansing Wound Cleanser -Foul Odor after Cleansing No -Anesthetic Used 5% Lidocaine Gel Lower Limb Edema Present No Yes Right Calf (cm) 53.5 51.5 Right Ankle (cm) 31.5 28.5 Left Calf (cm) 48.0 50 Left Ankle (cm) 31.5 27.7 WC - Nurse 2 - General Ulcer CM Notes Start: 10/27/24 10:04 Freq: Status: Active Protocol: Activity Type Activity Date Activity User E-sign Co-sign Detail Recorded Client Recorded Date Recorded By Document 10/27/24 11:11 [id number] 10/27/24 11:11 Document 11/03/24 10:53 [id number] 11/03/24 10:58 10/27/24 11/03/24 11:11 10:53 Wound Center Nurse 2 lle -Correct Patient Yes -Correct Side, Site, Position Yes -Correct Procedure No -Procedure Performed No -Wound Comment(s) draining but not open Pain Scale: 0-10 Numeric Is Patient Pain Free? Yes Yes - Nurse 3 - General Ulcer D/C NN Start: 10/27/24 10:04 Freq: Status: Active Protocol: Activity Type Activity Date Activity User E-sign Co-sign Detail Recorded Client Recorded Date Recorded By Document 10/27/24 11:34 KW [id number] 10/27/24 11:36 KW Document 11/03/24 11:19 RB [id number] 11/03/24 11:19 RB 10/27/24 11/03/24 11:34 11:19 Wound Care Center Nurse 3 lle -Primary Dressing Applied Optilok 8x12 Optilok 6.5x10 -Primary Dressing Covered/Secured with Dry Gauze & Roll Gauze, Secured with Tape -Optilok 6.5x10 1 -Optilok 8x12 1 BLE -Multi-Layered Wrap Application Unna Boot - Bilateral -Tubular Bandage Double Layer -Size of Tubigrip Used Size F -Size F ($) 2 -Other USED 2 BOXES OF THE UNNA WRAP -Unna- Bilat (Qty applied) 1 Treatment Response Procedure Tolerated Well Pain Scale: 0-10 Numeric Is Patient Pain Free? Yes Yes WC - Visit Discharge Discharge Condition Stable Stable Ambulatory Status Ambulatory, Ambulatory, Walker Walker Transportation Private Auto Private Auto Accompanied by Medication Reconcilliation completed & No No provided to patient/care provider Clinical Summary of Care Provided Yes Yes Assessment/Plan Assessment/Plan (1) Non-pressure chronic ulcer left lower leg, limited to breakdown skin: CODE(S): L97.921 - Non-pressure chronic ulcer of unspecified part of left lower leg limited to breakdown of skin (2) Venous insufficiency: CODE(S): I87.2 - Venous insufficiency (chronic) (peripheral) (3) Edema of both lower extremities: CODE(S): R60.0 - Localized edema (4) Lymphedema: CODE(S): I89.0 - Lymphedema, not elsewhere classified (5) Essential hypertension: CODE(S): I10 - Essential (primary) hypertension (6) Morbid obesity with BMI of 45.0-49.9, adult: CODE(S): E66.01 - Morbid (severe) obesity due to excess calories; Z68.42 - Body mass index [BMI] 45.0-49.9, adult (7) Venous stasis 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: CODE(S): I83.023 - Varicose veins of left lower extremity with ulcer of ankle; L97.321 - Non-pressure 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 QUALIFIERS: Varicose vein presence: with varicose veins Qualified Code(s): I83.023 - Varicose veins of left lower extremity with ulcer of ankle; L97.321 - Non-pressure 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 (8) Debility: CODE(S): R53.81 - Other malaise (9) Osteoarthritis: CODE(S): M19.90 - Unspecified osteoarthritis, unspecified site QUALIFIERS: Osteoarthritis location: multiple joints Osteoarthritis type: primary Qualified Code(s): M15.9 - Polyosteoarthritis, unspecified (10) COPD (chronic obstructive pulmonary disease): CODE(S): J44.9 - Chronic obstructive pulmonary disease, unspecified QUALIFIERS: COPD type: unspecified COPD Qualified Code(s): J44.9 - Chronic obstructive pulmonary disease, unspecified (11) Chronic hypoxemic respiratory failure: CODE(S): J96.11 - Chronic respiratory failure with hypoxia (12) Pulmonary hypertension: CODE(S): I27.20 - Pulmonary hypertension, unspecified (13) Hypothyroidism: CODE(S): E03.9 - Hypothyroidism, unspecified QUALIFIERS: Hypothyroidism type: unspecified Qualified Code(s): E03.9 - Hypothyroidism, unspecified (14) Type 2 diabetes mellitus: CODE(S): E11.9 - Type 2 diabetes mellitus without complications QUALIFIERS: Diabetes mellitus termite control representative insulin use: without group home use Diabetes mellitus complication status: with other specified complication Qualified Code(s): E11.69 - Type 2 diabetes mellitus with other specified complication (15) DOLORES (obstructive sleep apnea): CODE(S): G47.33 - Obstructive sleep apnea (adult) (pediatric) PLAN: Plan Evaluation and debridement performed today in clinic as annotated above. At home wound-care instructions: Will continue to dress her left lower leg with super absorber and roll gauze changed daily for heavy drainage. She was instructed to keep dressings clean and dry. Will have her use lymphedema pumps for 60 minutes 2-3 times daily. Off-loading: The patient was instructed to avoid pressure and friction on the affected areas. Reposition every 2 hours at minimum. Avoid prolonged standing and/or dangling of legs. When seated, feet should be elevated at chest level. Frequent ambulation is encouraged. Diet: Patient encouraged to increase protein intake while taking caution to avoid high carbohydrate and/or sugar intake. Encouraged weight loss. Labs/cultures/imaging: Wound Culture of left allen ulcer showed pseudomonas and MRSA. Ciprofloxacin prescribed. Venous ultrasound showed incompetence of veins of left lower extremity and vascular performed an ablation on 07/27/2024. Culture showed E. faecalis, anaerobic bacteria and Pseudomonas advised to restart Ciprofloxacin and Flagyl was prescribed for Anaerobic bacteria. 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 She has been referred to infectious disease and they will see her 09/27/2024. We are going to try treating her with Bactrim DS until she sees Dr. Johnson. She is tolerating this. Completed Bactrim DS. Wound culture taken again today and will consider IV antibiotic treatment. Will check xray of left leg to evaluate for possible underlying osteomyelitis. Will also repeat venous testing to evaluate whether the vascular procedure she had a few months ago was not successful. Encouraged her to get her CPAP mask to improve DOLORES and pulmonary HTN treatment compliance which is adding to her decompensated lymphedema. Follow-up: Will have her follow up in 1 weeks. Return sooner or report to the emergency room should symptoms worsen, or new symptoms arise. Note: [employer] speech recognition seo consultant software was used to create portions of this document. Sound-alike and misspelled words, as well as other seo consultant errors may be contained in the documentation.
[2024-11-10 10:17] VITALS: BP 144/63; PULSE 82; RESP 18; TEMP 35.8; BMI 49.8
--- NOTE | 2024-11-10 11:43 | RAD_ITS ---
EXAM: XR Left Tibia and Fibula, 2 Views CLINICAL INDICATION: R/O OSTEOMYELITIS TECHNIQUE: Frontal and lateral views of the left tibia and fibula. COMPARISON: No relevant prior studies available. FINDINGS: BONES/JOINTS: Severe degenerative changes of the partially visualized medial tibial plateau. No obvious radiographic evidence of osteomyelitis. However, if clinical suspicion remains high, further evaluation with 3 phase bone scan or MRI is recommended. No acute fracture. No dislocation. No erosive changes to the osseous structures. SOFT TISSUES: Soft tissue swelling. Soft tissue swelling. No radiopaque foreign body. RAD/Tibia & Fibula 2 Views IMPRESSION: 1. Severe degenerative changes of the partially visualized medial tibial plate au. 2. No obvious radiographic evidence of osteomyelitis. However, if clinical carlos picion remains high, further evaluation with 3 phase bone scan or MRI is recommended. Reading Location: [facility]
--- NOTE | 2024-11-10 11:50 | RAD_ITS ---
EXAM: XR Left Ankle Complete, 3 or More Views CLINICAL INDICATION: R/O OSTEOMYELITIS TECHNIQUE: Frontal, lateral and oblique views of the left ankle. COMPARISON: No relevant prior studies available. FINDINGS: BONES/JOINTS: No obvious radiographic evidence of osteomyelitis. However, if clinical suspicion remains high, further evaluation with 3 phase bone scan or MRI is recommended. No acute fracture. No dislocation. No erosive changes to the osseous structures. SOFT TISSUES: Soft tissue swelling. RAD/Ankle min 3 Views IMPRESSION: No obvious radiographic evidence of osteomyelitis. However, if clinical suspici on remains high, further evaluation with 3 phase bone scan or MRI is recommended. Reading Location: [facility]
--- NOTE | 2024-11-10 12:48 | PCM.WC.PN ---
History of Present Illness Date of Service: 11/10/24 Chief Complaint: Left LE ulcer, bilateral lower extremity swelling History of Wound: Liz is a pleasant 74 yo woman that presents to the wound center for bilateral lower extremity edema and blisters and drainage of her bilateral lower extremities. She has had increased edema the last 2 weeks and her legs started seeping a few days ago. She has been wearing her tubigrip compression and had been using the lymphedema pumps until they started seeping fluid. She tries to elevate her legs when she is sitting but is not always consistent with doing this. She has been wrapping her leg with gauze when it is seeping but otherwise has not been doing any regular dressings. Patient has been treated at the wound center in the past for similar wounds, most recently October 2023. She has also been seen in the vascular surgery clinic where she was evaluated her for BLE DVT and venous insufficiency. 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 GSV ablation has been done to her right lower leg. She has received lymphedema pumps that were ordered during her last treatment course and has been using these. Last venous study was 03/2022. Last A1C 01/2023 was 6.4%. Last TSH - 01/2022 Patient's medical history is also significant for CHF, COPD, T2DM, lymphedema. She has a CPAP but has not been using this due to needing a new mask. She states that a prescription was to be sent and she never received the mask. Her current mask has a hole in it. Subjective Subjective Liz returns today for treatment of edema to bilateral lower legs. She underwent venous ablation of left lower leg on 07/27/2024. She has been elevating her legs and using lymphedema pumps as directed. She tolerated UNNA boot treatment this past week but has had worsening of appearance of skin and of left lateral lower leg and mild odor. She does continue to have drainage from left lateral lower leg and some increased erythema. She denies fever, chills. Wound culture last week was positive for E.coli, Enterococcus and Klebsiella and anaerobic bacteria. She has had some drainage from her right lower leg this week as well. Objective Data Objective Data Vital Signs: Vital Signs Temp Pulse Resp BP Pulse Ox O2 Del Method 96.4 F L 82 18 144/63 H 94 Room Air 11/10/24 10:17 11/10/24 10:17 11/10/24 10:17 11/10/24 10:17 10/19/24 00:34 10/27/24 10:04 Oxygen Delivery Method Room Air Weight: 140.16 kg Body Mass Index (BMI) 49.8 Lab / Micro Data Micro: Microbiology 11/03/24 10:56 Wound - Leg, Left Gram Stain - Final 11/03/24 10:56 Wound - Leg, Left Wound Culture - Final Escherichia coli Klebsiella pneumoniae sp pneum Enterococcus faecalis 11/03/24 10:56 Wound - Leg, Left Anaerobic Culture - Final Anaerobic cocci Physical Exam Const alert, oriented x3, no apparent distress and healthy appearing General Appearance: cooperative; Negative for combative or lethargic Orientation / Consciousness: awake Exam Limitations: no limitations Nutritional Appearance: obese HEENT normocephalic and head/scalp atraumatic Eyes EOMs intact bilaterally General Eye: normal appearance of both eyes Neck full ROM General: trachea midline Lymph Lymphatic: lymphedema severe and pitting Resp normal respiratory effort and no use of accessory muscles Effort and Inspection: Negative for labored, stridor or audible wheezes Cardio regular rate and regular rhythm Back/Spine Cervical Spine: cervical ROM normal Extremity full ROM, normal capillary refill and no clubbing, cyanosis or edema General Extremity: edema bilateral lower extremity Details: severe (with skin changes associated with lymphedema, thickened nodular appearance from mid allen to ankle) Skin no rashes or lesions noted General Skin Exam: erythema, venous stasis and dermatitis Wounds: wounds noted Wound Narrative: as in clinical panel, increased erythema and light serous drainage from left lateral lower leg, nodular appearance of skin associated with lymphedema Neuro oriented x3, CN's II-XII intact bilaterally, no focal motor deficits and no sensory deficits noted Psych thought process normal, cooperative, affect normal, speech normal and activity/motor behavior normal Debridement Note Debridement Note Wound debrided: lateral left lower leg Laterality: Left No debridement was completed: No debridement was completed today (no open ulcer just skin breakdown) Post-Debridement Measurements and Additional Note: Post-Debridement Measurements/Treatment [id number] - Nurse 1 - General Ulcer Assessment Start: 10/27/24 10:04 Freq: Status: Active Protocol: KELSEY Activity Type Activity Date Activity User E-sign Co-sign Detail Recorded Client Recorded Date Recorded By Document 10/27/24 10:04 [id number] 10/27/24 10:10 GM Document 11/03/24 10:36 RB [id number] 11/03/24 10:38 RB Document 11/10/24 10:17 RB [id number] 11/10/24 10:19 RB 10/27/24 11/03/24 11/10/24 10:04 10:36 10:17 - Today's Visit Information Type of service Follow-up Visit Follow-up Visit Follow-up Visit (Physician/[employer]ES INSPECTOR (Physician/LIFTS AND CRANES INSPECTOR (Physician/LIFTS AND CRANES INSPECTOR ) ) ) Arrival Mode Ambulatory, Ambulatory, Ambulatory, Wheelchair Walker Walker Transfer Assistance Manual,None None Patient Identification Verified (Name & Yes Yes Yes ) Patient Requires Transmission-Based No No No Precautions Height and Weight Body Mass Index (BMI) 49.8 49.8 49.8 BMI Classification Obese Obese Obese Vital Signs Temperature (97.8 F-99.1 F) 96.8 F L 96 F L 96.4 F L Temperature Source Temporal Temporal Temporal Pulse Rate (60-100) 79 82 Pulse Location Monitor Monitor Monitor Respiratory Rate (12-18) 19 H 18 18 Respiratory rate source Observation Observation Observation Oxygen Delivery Method Room Air Blood Pressure (90/60-120/80) 153/68 H 161/85 H 144/63 H Blood Pressure Mean (mm Hg) 96 110 90 Source Monitor Monitor Monitor Position Sitting Semi-Fowlers Sitting Blood Pressure Location Left Arm Left Arm Left Arm History Since Last Visit- (Skip if this is Patient's initial visit) Have you changed medications since your No No No last visit? Any new allergies or adverse reactions No No No Had a fall/change in ADL's that may No No No increase risk of falls Signs or symptoms of abuse and/or No No No neglect since last visit Have you been in the hospital since your No No No last visit? Has dressing in place as prescribed Yes Yes Yes Has compression in place as prescribed Yes Yes Yes Has offloadiing in place as prescribed N/A N/A N/A Experienced any changes in pain level or No No No management Left Footwear Regular Shoe Regular Shoe Right Footwear Regular Shoe Regular Shoe Pain Scale: 0-10 Numeric Is Patient Pain Free? Yes Yes Yes - Nurse 1 - General Ulcer Measurement Start: 10/27/24 10:04 Freq: Status: Active Protocol: Activity Type Activity Date Activity User E-sign Co-sign Detail Recorded Client Recorded Date Recorded By Document 10/27/24 10:04 [id number] 10/27/24 10:10 Document 11/03/24 10:36 RB [id number] 11/03/24 10:38 RB Document 11/10/24 10:17 RB [id number] 11/10/24 10:19 RB 10/27/24 11/03/24 11/10/24 10:04 10:36 10:17 Wound Center Nurse 1 lle -Combined with other wound No No -Current Size (cm) - Length 0.1 0.1 -Current Size (cm) - Width 0.1 0.1 -Current Size (cm) - Depth 0.1 0.1 -Total Square Cm 0.01 0.01 -Photo Taken No -Tunneling No No -Undermining/Tunneling No No -Circular Undermining No No -Exudate Amt Large Large -Exudate Type Serosanguineous Serosanguineous -Wound Margin Distinct, Outline Attached -Granulation Amt Large (67-100%) Large (67-100%) -Granulation Quality [place] -Slough/Fibrin Yes Yes -Necrosis Amt Small (1-33%) Small (1-33%) -Necrotic Tissue Type Adherent Slough Adherent Slough -Structure Exposed N/A N/A -Texture (Adrianna-wound Skin Appearance) Assessed Assessed, Excoriation -Moisture (Adrianna-wound Skin Appearance) Maceration Weeping -Color (Adrianna-wound Skin Appearance) Assessed Assessed -Temperature (Adrianna-wound Skin No Abnormality No Abnormality Appearance) (Pt Warm) (Pt Warm) -Tenderness on Palpation (Adrianna-wound No No Skin Appearance) -Ulcer Cleansing Wound Cleanser Wound Cleanser -Foul Odor after Cleansing No No -Anesthetic Used 5% Lidocaine 5% Lidocaine Gel Gel Lower Limb Edema Present No Yes Yes Right Calf (cm) 53.5 51.5 56 Right Ankle (cm) 31.5 28.5 30.5 Left Calf (cm) 48.0 50 53 Left Ankle (cm) 31.5 27.7 30.5 WC - Nurse 2 - General Ulcer CM Notes Start: 10/27/24 10:04 Freq: Status: Active Protocol: Activity Type Activity Date Activity User E-sign Co-sign Detail Recorded Client Recorded Date Recorded By Document 10/27/24 11:11 [id number] 10/27/24 11:11 Document 11/03/24 10:53 [id number] 11/03/24 10:58 Document 11/10/24 10:57 [id number] 11/10/24 11:05 10/27/24 11/03/24 11/10/24 11:11 10:53 10:57 Wound Center Nurse 2 lle -Time 10:57 -Correct Patient Yes Yes -Correct Side, Site, Position Yes Yes -Correct Procedure No No -Procedure Performed No No -Tunneling No -Undermining/Tunneling No -Circular Undermining No -Ulcer Cleansing Not Cleansed -Foul Odor after Cleansing No -Bioengineered Tissue No -Offloading No -Wound Comment(s) draining but not open Pain Scale: 0-10 Numeric Is Patient Pain Free? Yes Yes Yes WC - Nurse 3 - General Ulcer D/C NN Start: 10/27/24 10:04 Freq: Status: Active Protocol: Activity Type Activity Date Activity User E-sign Co-sign Detail Recorded Client Recorded Date Recorded By Document 10/27/24 11:34 KW [id number] 10/27/24 11:36 KW Document 11/03/24 11:19 RB [id number] 11/03/24 11:19 RB Document 11/10/24 11:25 RB [id number] 11/10/24 11:26 RB 10/27/24 11/03/24 11/10/24 11:34 11:19 11:25 Wound Care Center Nurse 3 lle -Ulcer Cleansing Wound Cleanser -Primary Dressing Applied Optilok 8x12 Optilok 6.5x10 Optilok 6.5x10 -Primary Dressing Covered/Secured with Dry Gauze & Dry Gauze & Roll Gauze, Roll Gauze, Secured with Secured with Tape Tape -Optilok 6.5x10 1 1 -Optilok 8x12 1 BLE -Lotion applied to leg before Yes compression wrap -Multi-Layered Wrap Application Unna Boot - Bilateral -Tubular Bandage Double Layer Double Layer -Size of Tubigrip Used Size F Size F -Size F ($) 2 2 -Other USED 2 BOXES OF THE UNNA WRAP -Unna- Bilat (Qty applied) 1 Treatment Response Procedure Procedure Tolerated Well Tolerated Well Pain Scale: 0-10 Numeric Is Patient Pain Free? Yes Yes Yes WC - Visit Discharge Discharge Condition Stable Stable Stable Ambulatory Status Ambulatory, Ambulatory, Ambulatory, Walker Walker Walker Transportation Private Auto Private Auto Private Auto Accompanied by Medication Reconcilliation completed & No No No provided to patient/care provider Clinical Summary of Care Provided Yes Yes Yes Assessment/Plan Assessment/Plan (1) Non-pressure chronic ulcer left lower leg, limited to breakdown skin: CODE(S): L97.921 - Non-pressure chronic ulcer of unspecified part of left lower leg limited to breakdown of skin (2) Venous insufficiency: CODE(S): I87.2 - Venous insufficiency (chronic) (peripheral) (3) Edema of both lower extremities: CODE(S): R60.0 - Localized edema (4) Lymphedema: CODE(S): I89.0 - Lymphedema, not elsewhere classified (5) Essential hypertension: CODE(S): I10 - Essential (primary) hypertension (6) Morbid obesity with BMI of 45.0-49.9, adult: CODE(S): E66.01 - Morbid (severe) obesity due to excess calories; Z68.42 - Body mass index [BMI] 45.0-49.9, adult (7) Venous stasis 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: CODE(S): I83.023 - Varicose veins of left lower extremity with ulcer of ankle; L97.321 - Non-pressure 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 QUALIFIERS: Varicose vein presence: with varicose veins Qualified Code(s): I83.023 - Varicose veins of left lower extremity with ulcer of ankle; L97.321 - Non-pressure 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 (8) Debility: CODE(S): R53.81 - Other malaise (9) Osteoarthritis: CODE(S): M19.90 - Unspecified osteoarthritis, unspecified site QUALIFIERS: Osteoarthritis location: multiple joints Osteoarthritis type: primary Qualified Code(s): M15.9 - Polyosteoarthritis, unspecified (10) COPD (chronic obstructive pulmonary disease): CODE(S): J44.9 - Chronic obstructive pulmonary disease, unspecified QUALIFIERS: COPD type: unspecified COPD Qualified Code(s): J44.9 - Chronic obstructive pulmonary disease, unspecified (11) Chronic hypoxemic respiratory failure: CODE(S): J96.11 - Chronic respiratory failure with hypoxia (12) Pulmonary hypertension: CODE(S): I27.20 - Pulmonary hypertension, unspecified (13) Hypothyroidism: CODE(S): E03.9 - Hypothyroidism, unspecified QUALIFIERS: Hypothyroidism type: unspecified Qualified Code(s): E03.9 - Hypothyroidism, unspecified (14) Type 2 diabetes mellitus: CODE(S): E11.9 - Type 2 diabetes mellitus without complications QUALIFIERS: Diabetes mellitus complication status: with other specified complication Diabetes mellitus usp insulin use: without usp use Qualified Code(s): E11.69 - Type 2 diabetes mellitus with other specified complication (15) DOLORES (obstructive sleep apnea): CODE(S): G47.33 - Obstructive sleep apnea (adult) (pediatric) (16) Cellulitis of left lower extremity: CODE(S): L03.116 - Cellulitis of left lower limb PLAN: Plan Evaluation and debridement performed today in clinic as annotated above. At home wound-care instructions: Will continue to dress her left lower leg with super absorber and roll gauze changed daily for heavy drainage. She was instructed to keep dressings clean and dry. Will have her use lymphedema pumps for 60 minutes 2-3 times daily. Off-loading: The patient was instructed to avoid pressure and friction on the affected areas. Reposition every 2 hours at minimum. Avoid prolonged standing and/or dangling of legs. When seated, feet should be elevated at chest level. Frequent ambulation is encouraged. Diet: Patient encouraged to increase protein intake while taking caution to avoid high carbohydrate and/or sugar intake. Encouraged weight loss. Labs/cultures/imaging: Wound Culture of left allen ulcer showed pseudomonas and MRSA. Ciprofloxacin prescribed. Venous ultrasound showed incompetence of veins of left lower extremity and vascular performed an ablation on 07/27/2024. Culture showed E. faecalis, anaerobic bacteria and Pseudomonas advised to restart Ciprofloxacin and Flagyl was prescribed for Anaerobic bacteria. 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 She has been referred to infectious disease and they will see her 09/27/2024. We are going to try treating her with Bactrim DS until she sees Dr. Johnson. She is tolerating this. Completed Bactrim DS. Wound culture taken 11/03/24 was positive and would like to treat her with IV gentamicin and oral Flagyl. Will check xray of left leg to evaluate for possible underlying osteomyelitis. Will also repeat venous testing to evaluate whether the vascular procedure she had a few months ago was not successful. Will try to arrange Home Health to be able to assist with in home administration of IV antibiotics. Encouraged her to get her CPAP mask to improve DOLORES and pulmonary HTN treatment compliance which is adding to her decompensated lymphedema. Follow-up: Will have her follow up in 1 week. Return sooner or report to the emergency room should symptoms worsen, or new symptoms arise. Note: [employer] speech recognition attendant child activity software was used to create portions of this document. Sound-alike and misspelled words, as well as other attendant child activity errors may be contained in the documentation.
--- NOTE | 2024-11-15 09:57 | VDLE_ITS ---
Reason For Study Reason For Study: LLE Edema Procedure LEFT This is a venous duplex using B-mode, color flow and Lt GSV is dilated and NONCOMPRESSIBLE with spectral Doppler. Intraluminal echoes from SFJ to mid calf. Finding is Exam performed in department. consistent with recent chemical ablation. LT GSV Limited views were obtained. appears competent mid calf to ankle. The study was technically difficult due to body CFV is compressible, spontaneous, phasic, competent, habitus and limited mobility. and demonstrates normal augmentation. FV is compressible, spontaneous, phasic, competent and demonstrates normal augmentation. Unable to visualize distal FV. POP V is compressible, spontaneous, phasic, competent and demonstrates normal augmentation. T/P Trunk is compressible. PTV is compressible. Unable to visualize proximal Derek V. Mid and Dist LT Derek V is compressible. SSV at junction is competent and measures 0.58 cm. SSV mid calf is competent and measures 0.62 cm. VL/Venous Duplex US, Unilateral Interpretation Summary Deep veins of the left lower extremity are patent and compressible segmentally. There is no evidence of left lower extremity deep vein thrombosis. Left great saphenous vein occluded consistent with prior chemical ablation. Ordering Physician: Sneha Rosa Referring Physician: Luis Cortés Performed By: Micah Allred RVSuha
[2024-11-17 09:46] VITALS: BP 153/76; PULSE 77; RESP 20; TEMP 36.8; O2SAT 92; BMI 49.8
--- NOTE | 2024-11-17 12:44 | PN.PCM_ITS ---
History of Present Illness Date of Service: 11/17/24 Chief Complaint: ulcers b/l LE, bilateral lower extremity swelling History of Wound: Liz is a pleasant 74 yo woman that presents to the wound center for bilateral lower extremity edema and blisters and drainage of her bilateral lower extremities. She has had increased edema the last 2 weeks and her legs started seeping a few days ago. She has been wearing her tubigrip compression and had been using the lymphedema pumps until they started seeping fluid. She tries to elevate her legs when she is sitting but is not always consistent with doing this. She has been wrapping her leg with gauze when it is seeping but otherwise has not been doing any regular dressings. Patient has been treated at the wound center in the past for similar wounds, most recently October 2023. She has also been seen in the vascular surgery clinic where she was evaluated her for BLE DVT and venous insufficiency. 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 GSV ablation has been done to her right lower leg. She has received lymphedema pumps that were ordered during her last treatment course and has been using these. Last venous study was 03/2022. Last A1C 01/2023 was 6.4%. Last TSH - 01/2022 Patient's medical history is also significant for CHF, COPD, T2DM, lymphedema. She has a CPAP but has not been using this due to needing a new mask. She states that a prescription was to be sent and she never received the mask. Her current mask has a hole in it. Subjective Subjective Liz returns today for treatment of edema to bilateral lower legs. She underwent venous ablation of left lower leg on 07/27/2024 but has not had resolution of drainage from the left lower leg since then with intermittent ulcer development. She has been using super absorbers and Kerlix to both legs for the last week and has continued to have drainage from both lower legs over the last week with new ulcer development to both legs on the lateral aspects of her lower legs. She admits to only using lymphedema pumps once daily and she has not been taking her water pill the last 2 days. Her swelling is much worse this week extending into both of her thighs. Wound culture was positive for E.coli, Enterococcus and Klebsiella and anaerobic bacteria and IV antibiotic was started on 11/14/24 of Gentamicin, she has had 3 doses. She was started on Flagyl on 11/10/24. Objective Data Objective Data Vital Signs: Vital Signs Temp Pulse Resp BP Pulse Ox O2 Del Method 98.3 F 77 20 H 153/76 H 92 Room Air 11/17/24 09:46 11/17/24 09:46 11/17/24 09:46 11/17/24 09:46 11/17/24 09:46 11/17/24 09:46 Oxygen Delivery Method Room Air Weight: 140.16 kg Body Mass Index (BMI) 49.8 Lab / Micro Data Micro: Microbiology 11/03/24 10:56 Wound - Leg, Left Gram Stain - Final 11/03/24 10:56 Wound - Leg, Left Wound Culture - Final Escherichia coli Klebsiella pneumoniae sp pneum Enterococcus faecalis 11/03/24 10:56 Wound - Leg, Left Anaerobic Culture - Final Anaerobic cocci Physical Exam Const alert, oriented x3, no apparent distress and healthy appearing General Appearance: cooperative; Negative for combative or lethargic Orientation / Consciousness: awake Exam Limitations: no limitations Nutritional Appearance: obese HEENT normocephalic and head/scalp atraumatic Eyes EOMs intact bilaterally General Eye: normal appearance of both eyes Neck full ROM General: trachea midline Lymph Lymphatic: lymphedema severe and pitting Resp normal respiratory effort and no use of accessory muscles Effort and Inspection: Negative for labored, stridor or audible wheezes Cardio regular rate and regular rhythm Back/Spine Cervical Spine: cervical ROM normal Extremity full ROM, normal capillary refill and no clubbing, cyanosis or edema General Extremity: edema bilateral lower extremity Details: severe (with skin changes associated with lymphedema, thickened nodular appearance from mid allen to ankle) Skin General Skin Exam: erythema, venous stasis and dermatitis Wounds: wounds noted Wound Narrative: as in clinical panel, stable erythema and light serous drainage from bilateral lower legs with small ulcers on lateral aspects bilaterally, nodular appearance of skin associated with lymphedema Neuro oriented x3, CN's II-XII intact bilaterally, no focal motor deficits and no sensory deficits noted Psych thought process normal, cooperative, affect normal, speech normal and activity/motor behavior normal Debridement Note Debridement Note Wound debrided: right lower lateral leg Laterality: Right Type of Debridement: Excisional debridement Anesthesia Used: 4% Lidocaine Solution Depth: Down to and including healthy tissue and in the subcutaneous layer Percentage of wound debrided: 100 Instrument Used: 3mm curette Tissue Removed: Yellow slough, devitalized tissue Severity: Fat Layer Exposed Amount of bleeding with debridement: Mild Bleeding Controlled with: Compression and gauze Patient tolerated procedure: Patient tolerated procedure well Post-Debridement Measurements and Additional Note: Post-Debridement Measurements/Treatment WC - Nurse 1 - General Ulcer Assessment Start: 10/27/24 10:04 Freq: Status: Active Protocol: KELSEY Activity Type Activity Date Activity User E-sign Co-sign Detail Recorded Client Recorded Date Recorded By Document 10/27/24 10:04 GM [id number] 10/27/24 10:10 GM Document 11/03/24 10:36 RB [id number] 11/03/24 10:38 RB Document 11/10/24 10:17 RB [id number] 11/10/24 10:19 RB Document 11/17/24 09:46 RB [id number] 11/17/24 09:50 RB 10/27/24 11/03/24 11/10/24 10:04 10:36 10:17 - Today's Visit Information Type of service Follow-up Visit Follow-up Visit Follow-up Visit (Physician/[employer] (Physician/DIRECTOR [employer] (Physician/DIRECTOR [employer] ) ) ) Arrival Mode Ambulatory, Ambulatory, Ambulatory, Wheelchair Walker Walker Transfer Assistance Manual,None None Patient Identification Verified (Name & Yes Yes Yes ) Patient Requires Transmission-Based No No No Precautions Height and Weight Body Mass Index (BMI) 49.8 49.8 49.8 BMI Classification Obese Obese Obese Vital Signs Temperature (97.8 F-99.1 F) 96.8 F L 96 F L 96.4 F L Temperature Source Temporal Temporal Temporal Pulse Rate (60-100) 79 82 Pulse Location Monitor Monitor Monitor Respiratory Rate (12-18) 19 H 18 18 Respiratory rate source Observation Observation Observation Pulse Oximetry Oxygen Delivery Method Room Air Blood Pressure (90/60-120/80) 153/68 H 161/85 H 144/63 H Blood Pressure Mean (mm Hg) 96 110 90 Source Monitor Monitor Monitor Position Sitting Semi-Fowlers Sitting Blood Pressure Location Left Arm Left Arm Left Arm History Since Last Visit- (Skip if this is Patient's initial visit) Have you changed medications since your No No No last visit? Any new allergies or adverse reactions No No No Had a fall/change in ADL's that may No No No increase risk of falls Signs or symptoms of abuse and/or No No No neglect since last visit Have you been in the hospital since your No No No last visit? Has dressing in place as prescribed Yes Yes Yes Has compression in place as prescribed Yes Yes Yes Has offloadiing in place as prescribed N/A N/A N/A Experienced any changes in pain level or No No No management Left Footwear Regular Shoe Regular Shoe Right Footwear Regular Shoe Regular Shoe Pain Scale: 0-10 Numeric Is Patient Pain Free? Yes Yes Yes left knee -Description -Intensity -Duration (hours) -Pain Behavior -Pain Aggravating Factors -Alleviating Factors/Interventions -Effectiveness of Alleviating Factor/ Intervention 11/17/24 09:46 WC - Today's Visit Information Type of service Follow-up Visit (Physician/DIRECTOR [employer] ) Arrival Mode Ambulatory, Walker Transfer Assistance Manual Patient Identification Verified (Name & Yes ) Patient Requires Transmission-Based No Precautions Height and Weight Body Mass Index (BMI) 49.8 BMI Classification Obese Vital Signs Temperature (97.8 F-99.1 F) 98.3 F Temperature Source Temporal Pulse Rate (60-100) 77 Pulse Location Monitor Respiratory Rate (12-18) 20 H Respiratory rate source Observation Pulse Oximetry 92 Oxygen Delivery Method Room Air Blood Pressure (90/60-120/80) 153/76 H Blood Pressure Mean (mm Hg) 101 Source Monitor Position Sitting Blood Pressure Location Right Arm History Since Last Visit- (Skip if this is Patient's initial visit) Have you changed medications since your No last visit? Any new allergies or adverse reactions No Had a fall/change in ADL's that may No increase risk of falls Signs or symptoms of abuse and/or No neglect since last visit Have you been in the hospital since your No last visit? Has dressing in place as prescribed Yes Has compression in place as prescribed Yes Has offloadiing in place as prescribed N/A Experienced any changes in pain level or No management Left Footwear Regular Shoe Right Footwear Regular Shoe Pain Scale: 0-10 Numeric Is Patient Pain Free? No left knee -Description Aching -Intensity 5 -Duration (hours) Acute -Pain Behavior Guarding, Irritability -Pain Aggravating Factors ADL's,Exercise/ Activity -Alleviating Factors/Interventions Medication -Effectiveness of Alleviating Factor/ Minimally Intervention effective WC - Nurse 1 - General Ulcer Measurement Start: 10/27/24 10:04 Freq: Status: Active Protocol: Activity Type Activity Date Activity User E-sign Co-sign Detail Recorded Client Recorded Date Recorded By Document 10/27/24 10:04 GM [id number] 10/27/24 10:10 GM Document 11/03/24 10:36 RB [id number] 11/03/24 10:38 RB Document 11/10/24 10:17 RB [id number] 11/10/24 10:19 RB Document 11/17/24 09:46 RB [id number] 11/17/24 09:50 RB 10/27/24 11/03/24 11/10/24 10:04 10:36 10:17 Wound Center Nurse 1 lle -Combined with other wound No No -Current Size (cm) - Length 0.1 0.1 -Current Size (cm) - Width 0.1 0.1 -Current Size (cm) - Depth 0.1 0.1 -Total Square Cm 0.01 0.01 -Photo Taken No -Tunneling No No -Undermining/Tunneling No No -Circular Undermining No No -Exudate Amt Large Large -Exudate Type Serosanguineous Serosanguineous -Wound Margin Distinct, Outline Attached -Granulation Amt Large (67-100%) Large (67-100%) -Granulation Quality [place] -Slough/Fibrin Yes Yes -Necrosis Amt Small (1-33%) Small (1-33%) -Necrotic Tissue Type Adherent Slough Adherent Slough -Structure Exposed N/A N/A -Texture (Adrianna-wound Skin Appearance) Assessed Assessed, Excoriation -Moisture (Adrianna-wound Skin Appearance) Maceration Weeping -Color (Adrianna-wound Skin Appearance) Assessed Assessed -Temperature (Adrianna-wound Skin No Abnormality No Abnormality Appearance) (Pt Warm) (Pt Warm) -Tenderness on Palpation (Adrianna-wound No No Skin Appearance) -Ulcer Cleansing Wound Cleanser Wound Cleanser -Foul Odor after Cleansing No No -Anesthetic Used 5% Lidocaine 5% Lidocaine Gel Gel -Wound Comment(s) Lower Limb Edema Present No Yes Yes Right Calf (cm) 53.5 51.5 56 Right Ankle (cm) 31.5 28.5 30.5 Left Calf (cm) 48.0 50 53 Left Ankle (cm) 31.5 27.7 30.5 11/17/24 09:46 Wound Center Nurse 1 lle -Combined with other wound No -Current Size (cm) - Length 0.1 -Current Size (cm) - Width 0.1 -Current Size (cm) - Depth 0.1 -Total Square Cm 0.01 -Photo Taken Yes -Tunneling No -Undermining/Tunneling No -Circular Undermining No -Exudate Amt Large -Exudate Type Serosanguineous -Wound Margin Indistinct, Non -Visible -Granulation Amt Large (67-100%) -Granulation Quality [place],Red -Slough/Fibrin Yes -Necrosis Amt Small (1-33%) -Necrotic Tissue Type Adherent Slough -Structure Exposed N/A -Texture (Adrianna-wound Skin Appearance) Excoriation -Moisture (Adrianna-wound Skin Appearance) Maceration -Color (Adrianna-wound Skin Appearance) Assessed -Temperature (Adrianna-wound Skin No Abnormality Appearance) (Pt Warm) -Tenderness on Palpation (Adrianna-wound No Skin Appearance) -Ulcer Cleansing Wound Cleanser -Foul Odor after Cleansing No -Anesthetic Used 5% Lidocaine Gel -Wound Comment(s) pt SOB after ambulating from car to wound center. pulse ox 91 -92 on room air. SOB subsided after sitting a few minutes Lower Limb Edema Present Yes Right Calf (cm) 58 Right Ankle (cm) 29.5 Left Calf (cm) 52.7 Left Ankle (cm) 30 WC - Nurse 2 - General Ulcer CM Notes Start: 10/27/24 10:04 Freq: Status: Active Protocol: Activity Type Activity Date Activity User E-sign Co-sign Detail Recorded Client Recorded Date Recorded By Document 10/27/24 11:11 [id number] 10/27/24 11:11 Document 11/03/24 10:53 [id number] 11/03/24 10:58 Document 11/10/24 10:57 [id number] 11/10/24 11:05 Document 11/17/24 10:05 [id number] 11/17/24 10:11 10/27/24 11/03/24 11/10/24 11:11 10:53 10:57 Wound Center Nurse 2 lle -Time 10:57 -Correct Patient Yes Yes -Correct Side, Site, Position Yes Yes -Correct Procedure No No -Procedure Performed No No -Tunneling No -Undermining/Tunneling No -Circular Undermining No -Ulcer Cleansing Not Cleansed -Foul Odor after Cleansing No -Bioengineered Tissue No -Offloading No -Wound Comment(s) draining but not open #9 Left Lateral Allen -Time -Correct Patient -Correct Side, Site, Position -Correct Procedure -Procedure Performed -Type of Procedure -Clinical Debridement -Tissue Removed -Post Debridement (cm) - Length -Post Debridement (cm) - Width -Post Debridement (cm) - Depth -Total Square (Post) (cm) -Area of Debridement (cm) - Length -Area of Debridement (cm) - Width -Total Square (Area) (cm) -Tunneling -Undermining/Tunneling -Circular Undermining -Wound/Ulcer Outcome -Ulcer Cleansing -Foul Odor after Cleansing -Bioengineered Tissue -Bleeding Controlled with -Treatment Response -Debridement - Open, 1st 20sq cm #10 RT LAT LE -Time -Correct Patient -Correct Side, Site, Position -Correct Procedure -Procedure Performed -Type of Procedure -Clinical Debridement -Tissue Removed -Post Debridement (cm) - Length -Post Debridement (cm) - Width -Post Debridement (cm) - Depth -Total Square (Post) (cm) -Area of Debridement (cm) - Length -Area of Debridement (cm) - Width -Total Square (Area) (cm) -Tunneling -Undermining/Tunneling -Circular Undermining -Wound/Ulcer Outcome -Ulcer Cleansing -Foul Odor after Cleansing -Bioengineered Tissue -Bleeding Controlled with -Treatment Response -Offloading -Debridement - Open, 1st 20sq cm Pain Scale: 0-10 Numeric Is Patient Pain Free? Yes Yes Yes 11/17/24 10:05 Wound Center Nurse 2 lle -Time 10:05 -Correct Patient -Correct Side, Site, Position -Correct Procedure -Procedure Performed -Tunneling -Undermining/Tunneling -Circular Undermining -Ulcer Cleansing -Foul Odor after Cleansing -Bioengineered Tissue -Offloading -Wound Comment(s) #9 Left Lateral Allen -Time 10:10 -Correct Patient Yes -Correct Side, Site, Position Yes -Correct Procedure Yes -Procedure Performed Yes -Type of Procedure Debridement -Clinical Debridement Epidermis / Dermis -Tissue Removed Epidermis -Post Debridement (cm) - Length 0.2 -Post Debridement (cm) - Width 0.2 -Post Debridement (cm) - Depth 0.1 -Total Square (Post) (cm) 0.04 -Area of Debridement (cm) - Length 0.2 -Area of Debridement (cm) - Width 0.2 -Total Square (Area) (cm) 0.04 -Tunneling No -Undermining/Tunneling No -Circular Undermining No -Wound/Ulcer Outcome Not Healed -Ulcer Cleansing Not Cleansed -Foul Odor after Cleansing No -Bioengineered Tissue No -Bleeding Controlled with Pressure -Treatment Response Procedure Tolerated Well -Debridement - Open, 1st 20sq cm No #10 RT LAT LE -Time 10:11 -Correct Patient Yes -Correct Side, Site, Position Yes -Correct Procedure Yes -Procedure Performed Yes -Type of Procedure Debridement -Clinical Debridement Epidermis / Dermis -Tissue Removed Epidermis -Post Debridement (cm) - Length 0.2 -Post Debridement (cm) - Width 0.3 -Post Debridement (cm) - Depth 0.1 -Total Square (Post) (cm) 0.06 -Area of Debridement (cm) - Length 0.2 -Area of Debridement (cm) - Width 0.3 -Total Square (Area) (cm) 0.06 -Tunneling No -Undermining/Tunneling No -Circular Undermining No -Wound/Ulcer Outcome Not Healed -Ulcer Cleansing Rinsed/ Irrigated with Saline -Foul Odor after Cleansing No -Bioengineered Tissue No -Bleeding Controlled with Pressure -Treatment Response Procedure Tolerated Well -Offloading No -Debridement - Open, 1st 20sq cm Yes Pain Scale: 0-10 Numeric Is Patient Pain Free? Yes WC - Nurse 3 - General Ulcer D/C NN Start: 10/27/24 10:04 Freq: Status: Active Protocol: Activity Type Activity Date Activity User E-sign Co-sign Detail Recorded Client Recorded Date Recorded By Document 10/27/24 11:34 KW [id number] 10/27/24 11:36 KW Document 11/03/24 11:19 RB [id number] 11/03/24 11:19 RB Document 11/10/24 11:25 RB [id number] 11/10/24 11:26 RB Document 11/17/24 10:22 RB [id number] 11/17/24 10:23 RB 10/27/24 11/03/24 11/10/24 11:34 11:19 11:25 Wound Care Center Nurse 3 lle -Ulcer Cleansing Wound Cleanser -Primary Dressing Applied Optilok 8x12 Optilok 6.5x10 Optilok 6.5x10 -Primary Dressing Covered/Secured with Dry Gauze & Dry Gauze & Roll Gauze, Roll Gauze, Secured with Secured with Tape Tape -Optilok 6.5x10 1 1 -Optilok 8x12 1 #9 Left Lateral Allen -Other Dressing -Primary Dressing Covered/Secured with #10 RT LAT LE -Other Dressing -Primary Dressing Covered/Secured with BLE -Lotion applied to leg before Yes compression wrap -Multi-Layered Wrap Application Unna Boot - Bilateral -Tubular Bandage Double Layer Double Layer -Size of Tubigrip Used Size F Size F -Size F ($) 2 2 -Other USED 2 BOXES OF THE UNNA WRAP -Unna- Bilat (Qty applied) 1 Treatment Response Procedure Procedure Tolerated Well Tolerated Well Pain Scale: 0-10 Numeric Is Patient Pain Free? Yes Yes Yes WC - Visit Discharge Discharge Condition Stable Stable Stable Ambulatory Status Ambulatory, Ambulatory, Ambulatory, Walker Walker Walker Transportation Private Auto Private Auto Private Auto Accompanied by Medication Reconcilliation completed & No No No provided to patient/care provider Clinical Summary of Care Provided Yes Yes Yes 11/17/24 10:22 Wound Care Center Nurse 3 lle -Ulcer Cleansing -Primary Dressing Applied -Primary Dressing Covered/Secured with -Optilok 6.5x10 -Optilok 8x12 #9 Left Lateral Allen -Other Dressing ABD -Primary Dressing Covered/Secured with Dry Gauze & Roll Gauze, Secured with Tape #10 RT LAT LE -Other Dressing ABD -Primary Dressing Covered/Secured with Dry Gauze & Roll Gauze, Secured with Tape BLE -Lotion applied to leg before compression wrap -Multi-Layered Wrap Application -Tubular Bandage Double Layer -Size of Tubigrip Used Size F -Size F ($) 4 -Other -Unna- Bilat (Qty applied) Treatment Response Procedure Tolerated Well Pain Scale: 0-10 Numeric Is Patient Pain Free? Yes WC - Visit Discharge Discharge Condition Stable Ambulatory Status Ambulatory, Walker Transportation Private Auto Accompanied by Medication Reconcilliation completed & No provided to patient/care provider Clinical Summary of Care Provided Yes Additional Wound Wound debrided: left lateral lower leg Laterality: Left Type of Debridement: Excisional debridement Anesthesia Used: 4% Lidocaine Solution Depth: Down to and including healthy tissue and in the subcutaneous layer Percentage of wound debrided: 100 Instrument Used: 3mm curette Tissue Removed: Yellow slough, devitalized tissue Severity: Fat Layer Exposed Amount of bleeding with debridement: Mild Bleeding Controlled with: Compression and gauze Patient tolerated procedure: Patient tolerated procedure well Assessment/Plan Assessment/Plan (1) Non-pressure chronic ulcer left lower leg, limited to breakdown skin: CODE(S): L97.921 - Non-pressure chronic ulcer of unspecified part of left lower leg limited to breakdown of skin (2) Venous insufficiency: CODE(S): I87.2 - Venous insufficiency (chronic) (peripheral) (3) Edema of both lower extremities: CODE(S): R60.0 - Localized edema (4) Lymphedema: CODE(S): I89.0 - Lymphedema, not elsewhere classified (5) Essential hypertension: CODE(S): I10 - Essential (primary) hypertension (6) Morbid obesity with BMI of 45.0-49.9, adult: CODE(S): E66.01 - Morbid (severe) obesity due to excess calories; Z68.42 - Body mass index [BMI] 45.0-49.9, adult (7) Debility: CODE(S): R53.81 - Other malaise (8) Osteoarthritis: CODE(S): M19.90 - Unspecified osteoarthritis, unspecified site QUALIFIERS: Osteoarthritis location: multiple joints Osteoarthritis type: primary Qualified Code(s): M15.9 - Polyosteoarthritis, unspecified (9) COPD (chronic obstructive pulmonary disease): CODE(S): J44.9 - Chronic obstructive pulmonary disease, unspecified QUALIFIERS: COPD type: unspecified COPD Qualified Code(s): J44.9 - Chronic obstructive pulmonary disease, unspecified (10) Chronic hypoxemic respiratory failure: CODE(S): J96.11 - Chronic respiratory failure with hypoxia (11) Pulmonary hypertension: CODE(S): I27.20 - Pulmonary hypertension, unspecified (12) Hypothyroidism: CODE(S): E03.9 - Hypothyroidism, unspecified QUALIFIERS: Hypothyroidism type: unspecified Qualified Code(s): E03.9 - Hypothyroidism, unspecified (13) Type 2 diabetes mellitus: CODE(S): E11.9 - Type 2 diabetes mellitus without complications QUALIFIERS: Diabetes mellitus long-term insulin use: without long-term use Diabetes mellitus complication status: with other specified complication Qualified Code(s): E11.69 - Type 2 diabetes mellitus with other specified complication (14) DOLORES (obstructive sleep apnea): CODE(S): G47.33 - Obstructive sleep apnea (adult) (pediatric) (15) Cellulitis of left lower extremity: CODE(S): L03.116 - Cellulitis of left lower limb (16) Venous ulcer with fat layer exposed: CODE(S): I83.009 - Varicose veins of unspecified lower extremity with ulcer of unspecified site; L97.902 - Non-pressure chronic ulcer of unspecified part of unspecified lower leg with fat layer exposed (17) Venous stasis ulcer of right calf with fat layer exposed: CODE(S): I83.012 - Varicose veins of right lower extremity with ulcer of calf; L97.212 - Non-pressure chronic ulcer of right calf with fat layer exposed QUALIFIERS: Varicose vein presence: with varicose veins Qualified Code(s): I83.012 - Varicose veins of right lower extremity with ulcer of calf; L97.212 - Non-pressure chronic ulcer of right calf with fat layer exposed (18) Venous stasis ulcer of left calf with fat layer exposed: CODE(S): I83.022 - Varicose veins of left lower extremity with ulcer of calf; L97.222 - Non-pressure chronic ulcer of left calf with fat layer exposed QUALIFIERS: Varicose vein presence: with varicose veins Qualified Code(s): I83.022 - Varicose veins of left lower extremity with ulcer of calf; L97.222 - Non-pressure chronic ulcer of left calf with fat layer exposed PLAN: Plan Evaluation and debridement performed today in clinic as annotated above. At home wound-care instructions: Will dress both lower legs with super absorber or ABD and roll gauze changed daily for heavy drainage. She was instructed to keep dressings clean and dry. Will have her use lymphedema pumps for 60 minutes 2-3 times daily. She has been noncompliant with pumps and was encouraged to increase frequency. Also, encouraged to take diuretic daily and if edema is not improving or she is developing worse shortness of breath to come to ER as she may need IV diuresis. Off-loading: The patient was instructed to avoid pressure and friction on the affected areas. Reposition every 2 hours at minimum. Avoid prolonged standing and/or dangling of legs. When seated, feet should be elevated at chest level. Frequent ambulation is encouraged. Diet: Patient encouraged to increase protein intake while taking caution to avoid high carbohydrate and/or sugar intake. Encouraged weight loss. Labs/cultures/imaging: Wound Culture of left allen ulcer showed pseudomonas and MRSA. Ciprofloxacin prescribed. Venous ultrasound showed incompetence of veins of left lower extremity and vascular performed an ablation on 07/27/2024. Culture showed E. faecalis, anaerobic bacteria and Pseudomonas advised to restart Ciprofloxacin and Flagyl was prescribed for Anaerobic bacteria. 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 She has been referred to infectious disease and they will see her 09/27/2024. We are going to try treating her with Bactrim DS until she sees Dr. Johnson. She is tolerating this. Completed Bactrim DS. Wound culture taken 11/03/24 was positive and would like to treat her with IV gentamicin and oral Flagyl. Xray of left lower leg did not show osteomyelitis. Repeat venous testing did not show thrombosis or failure of previous venous ablation. Encouraged her to get her CPAP mask to improve DOLORES and pulmonary HTN treatment compliance which is adding to her decompensated lymphedema. Follow-up: Will have her follow up in 1 week. Return sooner or report to the emergency room should symptoms worsen, or new symptoms arise. Note: [employer] speech recognition sampler tester software was used to create portions of this document. Sound-alike and misspelled words, as well as other sampler tester errors may be contained in the documentation.
--- NOTE | 2024-11-20 11:46 | WC ---
PHOTO 11/17/24 TAO
== END 2024-11-18 23:59 | disposition home or self-care (01) ==
LOC: WC 10:15
PROVIDERS: PCP Internal Medicine; Referring Provider Internal Medicine; Visit Provider Family Medicine
DX: I83.022 Varicose veins of left lower extremity with ulcer of calf (principal); L97.222 Non-pressure chronic ulcer of left calf with fat layer exposed; I83.012 Varicose veins of right lower extremity with ulcer of calf; L97.212 Non-pressure chronic ulcer of right calf with fat layer exposed; J96.11 Chronic respiratory failure with hypoxia; I11.0 Hypertensive heart disease with heart failure; I50.9 Heart failure, unspecified; I27.20 Pulmonary hypertension, unspecified; J44.9 Chronic obstructive pulmonary disease, unspecified; E66.01 Morbid (severe) obesity due to excess calories; Z68.42 Body mass index [BMI] 45.0-49.9, adult; E11.9 Type 2 diabetes mellitus without complications; B96.1 Klebsiella pneumoniae [K. pneumoniae] as the cause of diseases classified elsewhere; B95.2 Enterococcus as the cause of diseases classified elsewhere; B96.20 Unspecified Escherichia coli [E. coli] as the cause of diseases classified elsewhere; I89.0 Lymphedema, not elsewhere classified; L03.116 Cellulitis of left lower limb; R53.81 Other malaise; E03.9 Hypothyroidism, unspecified; I87.2 Venous insufficiency (chronic) (peripheral); M15.9 Polyosteoarthritis, unspecified; G47.33 Obstructive sleep apnea (adult) (pediatric); M79.89 Other specified soft tissue disorders; R60.0 Localized edema; Z79.890 Hormone replacement therapy; Z79.899 Other long term (current) drug therapy; Z86.718 Personal history of other venous thrombosis and embolism
CPT/HCPCS: 96365; 29580; 73590; 73610; 87070; 87075; 87077; 87186; 87205; 93971; 97597; 99213; A4216; G0463

== ENCOUNTER 2024-11-18 09:16 | Outpatient (CLI) | payer MEDICARE, MEDICAID, SELFPAY ==
[2024-11-18 09:32] VITALS: BP 130/70; PULSE 65; RESP 18; TEMP 36.6; O2SAT 90
[2024-11-18] MEDS: 0.9% Normal Saline (250mL Bag) 250 ML 15 ML IV (09:56)
[2024-11-18] MEDS: GENTAMICIN IVPB (09:56)
[2024-11-18] MEDS: DEXTROSE 5% IVPB (09:56)
[2024-11-18] MEDS: 0.9% Saline Lock 10 ML Syringe IV ×2 (09:56→10:45)
[2024-11-18] MEDS: WATER IVPB (09:56)
[2024-11-18 10:44] VITALS: BP 106/53; PULSE 73; RESP 18; TEMP 36.6; O2SAT 90
== END 2024-11-18 10:54 | disposition home or self-care (01) ==
LOC: MEDOUTP 09:18 → MS3 09:19
PROVIDERS: PCP Internal Medicine; Referring Provider Family Medicine; Visit Provider Family Medicine
DX: L03.116 Cellulitis of left lower limb (principal)
CPT/HCPCS: 96365; A4216

== ENCOUNTER 2024-11-20 10:26 | Outpatient (CLI) | payer MEDICARE, MEDICAID, SELFPAY ==
[2024-11-20 10:42] VITALS: BP 133/74; PULSE 65; RESP 16; TEMP 35.9; O2SAT 95
[2024-11-20] MEDS: DEXTROSE 5% IVPB (10:49)
[2024-11-20] MEDS: WATER IVPB (10:49)
[2024-11-20] MEDS: GENTAMICIN IVPB (10:49)
[2024-11-20 11:46] VITALS: BP 121/49; PULSE 78; RESP 18; TEMP 35.9
[2024-11-20 15:58] LABS: Absolute Lymphocyte Count 1.45 X10^3/uL (0.83-4.51); Absolute Neutrophil Count 4.1 X10^3/uL (2.0-7.7); Basophil# 0.07 X10^3/uL; Basophil% 1.1 % (0-1); Eosinophil# 0.25 X10^3/uL; Eosinophils% 3.8 % (0-5); Lymphocyte # 1.45 X10^3/ul (0.83-4.51); Lymphocyte % 22.3 % (19-41); Mean Corp Hgb Conc 30.8 g/dL (32-36); Mean Corpuscular Hgb 25.7 pg (27.0-32.0); Mean Corpuscular Volume 83.5 fL (81-99); Mean Platelet Vol. 9.1 fl (6.2-12.0); Monocyte# 0.56 X10^3/uL; Monocyte% 8.6 % (0-10); NRBC Flagged by Analyzer 0 % (0-5); Neutrophil # 4.13 X10^3/uL (2.7-7.7); Neutrophil % 63.6 % (47-70); Platelet Count 222 K/mm3 (150-450); RBC Distribution Width CV 15.9 % (11.6-14.6); RBC Distribution Width SD 47.9 fl (35.1-43.9); Red Blood Count 4.67 M/mm3 (4.2-5.4); White Blood Count 6.5 K/mm3 (4.4-11.0)
[2024-11-20 16:11] LABS: Anion Gap 9 (5-15); BUN 13 mg/dL (4-19); BUN/Creat Ratio 14.1 RATIO (10-20); Calcium,Total 8.4 mg/dL (7.6-11.0); Carbon Dioxide 27.2 mmol/L (21.0-32.0); Chloride 104 mmol/L (98-108); Creatinine, Serum 0.91 mg/dL (0.70-1.20); EST Glomerular Filtration Rate 66 (>60); Glucose 141 mg/dL (70-99); Potassium 3.9 mmol/L (3.3-5.1); Sodium Level 140 mmol/L (133-145); Uric Acid 8.1 mg/dL (2.6-6.0)
[2024-11-20 16:25] LABS: Erythrocyte Sedimentation Rate 32 mm/hr (0-30)
== END 2024-11-20 23:59 | disposition home or self-care (01) ==
LOC: MEDOUTP 10:26
PROVIDERS: PCP Internal Medicine; Referring Provider Family Medicine; Visit Provider Family Medicine
DX: L03.116 Cellulitis of left lower limb (principal)
CPT/HCPCS: 96365; 36592; 80048; 80170; 84550; 85025; 85652; 86140; A4216

== ENCOUNTER 2024-11-22 09:17 | Outpatient (CLI) | payer MEDICARE, MEDICAID, SELFPAY ==
[2024-11-22 09:26] VITALS: BP 138/54; PULSE 67; RESP 16; TEMP 36; O2SAT 91; BMI 51.2
[2024-11-22] MEDS: WATER IVPB (09:37)
[2024-11-22] MEDS: GENTAMICIN IVPB (09:37)
[2024-11-22] MEDS: DEXTROSE 5% IVPB (09:37)
== END 2024-11-22 23:59 | disposition home or self-care (01) ==
LOC: MEDOUTP 09:17
PROVIDERS: PCP Internal Medicine; Referring Provider Family Medicine; Visit Provider Family Medicine
DX: L03.116 Cellulitis of left lower limb (principal)
CPT/HCPCS: 96365; A4216

== ENCOUNTER 2024-11-27 16:12 | Emergency (ER) | payer MEDICARE, MEDICAID, SELFPAY ==
[2024-11-27 16:13] VITALS: BP 172/58; PULSE 74; RESP 20; TEMP 36.4; O2SAT 93
--- NOTE | 2024-11-27 18:07 | EKG12_ITS ---
Test Reason : DYSRHYTHMIA Blood Pressure : */* mmHG Vent. Rate : 82 BPM Atrial Rate : 82 BPM P-R Int : 190 ms QRS Dur : 82 ms QT Int : 390 ms P-R-T Axes : 51 -11 44 degrees QTcB Int : 455 ms Normal sinus rhythm Low voltage QRS Nonspecific ST and T wave abnormality Abnormal ECG Confirmed by Andrew Clark ([id number]), deputy editor in chief PIETRO PULIDO ([id number]) on 11/28/2024 11:14:58 AM Referred By: Confirmed By: Andrew Clark
[2024-11-27 18:12] VITALS: BP 146/64; PULSE 72; O2SAT 93
--- NOTE | 2024-11-27 18:30 | RAD_ITS ---
PROCEDURE: CHEST PA AND LATERAL 11/27/2024 REASON FOR EXAM: SOB, EDEMA TECHNIQUE: Frontal and lateral views of the chest. COMPARISON: Chest radiograph 09/24/2023. FINDINGS: Hardware: None. Heart: Stable severe cardiomegaly with pulmonary vascular congestion. Mediastinum: The mediastinal contour is stable. Lungs: Bibasilar atelectasis. Trace left pleural effusion. Diffuse hazy opacification with Chiquis B lines. No pneumothorax. Bones: Degenerative changes are identified within the thoracic spine. RAD/Chest PA and Lateral IMPRESSION: Findings compatible with CHF/volume overload including severe cardiomegaly, pul monary edema and trace left pleural effusion. Reading Location: [id number]
--- NOTE | 2024-11-27 18:32 | EX.ED.DYSGE1 ---
HPI History of Present Illness Chief Complaint: Dizziness Informant: patient Narrative Narrative: Patient is 74-year-old female with history urge incontinence, COPD, peripheral vascular disease, chronic hypoxic respiratory failure, pulmonary hypertension, LVH, lymphedema, hypothyroidism, type 2 diabetes mellitus, GERD, DOLORES and prior episode of vertigo presenting with dizziness as well as worsening leg swelling. Patient states she started get dizzy yesterday. She states it was much worse today when she woke up and is worse whenever she moves her head. She denies any hearing change or ringing in her ears. She notes she has had recent sinus pressure and sinus headaches the past 2 days. That is relieved by Tylenol. She also for the past 3 to 4 days she has had a mild yellow discoloration to her vision when she goes outside. She does not take digoxin of note. She denies any numbness or tingling with no she does have chronic neuropathy of her legs but denies any acute change in that. States that she did have vertigo 5 to 6 years ago and this feels the same. Denies any history of stroke. Is on any blood thinners. She also notes that she has been having significant lower extremity swelling and some chronic dyspnea on exertion. Her doctor told her that her pro swelling got worse she would need to come in for IV Lasix. She states she is taking her Lasix at home as well as her other prescribed medications regularly. No other acute complaints at this time. [facility] Medical History Insomnia MRSA (methicillin resistant staph aureus) culture positive Colon cancer screening Debility Osteoarthritis Left knee pain Shingles Urinary incontinence with continuous leakage Gastric ulcer Wears glasses Wears dentures Depression Alcohol use Blister Diabetes Walker as ambulation aid Bladder disease DVT (deep venous thrombosis) Easy bruising Back pain Syncope Dietary restriction Constipation Difficulty swallowing Former smoker CPAP (continuous positive airway pressure) dependence On home oxygen therapy Shortness of breath on exertion Neuropathy Leg cramps History of pain when walking History of edema Hypertension History of CHF (congestive heart failure) History of echocardiogram Cardiology follow-up encounter Hx of cyst of breast Abdominal pain Secondary pulmonary arterial hypertension Hyperlipidemia Left ventricular hypertrophy DVT, bilateral lower limbs Health care maintenance Dermatitis Sore throat Essential hypertension Morbid obesity with BMI of 45.0-49.9, adult Inactivity Lymphedema Asthma GERD (gastroesophageal reflux disease) Ulcer of right lower extremity Difficulty swallowing Depression Type 2 diabetes mellitus Chronic respiratory failure with hypoxia DOLORES (obstructive sleep apnea) Hypothyroidism Pneumonia due to COVID-19 virus (01/30/21) Diabetes mellitus type 2 in obese COPD (chronic obstructive pulmonary disease) Home Medications ?Medication ?Instructions ?Recorded ?Last Taken ?Type Nebulizer #1 ea 10/06/21 Unknown Rx docusate sodium 100 mg capsule 100 mg PO BID 06/04/22 11/27/24 History (Stool Softener) furosemide 40 mg tablet 40 mg PO BID HEART FAILURE #180 09/04/22 11/27/24 Rx tabs Handicap Placard #1 ea 11/02/22 Unknown Rx Bedside Commode #1 ea 02/11/23 Unknown Rx walker (Ultra-Light Rollator misc) #1 ea 02/11/23 Unknown Rx Cpap Supplies #1 ea 12/03/23 Unknown Rx walker (Ultra-Light Rollator misc) #1 ea 12/14/23 Unknown Rx foam bandage 4 X 4 (Aquacel Foam) #10 ea 02/17/24 Unknown Rx levothyroxine 100 mcg tablet See Rx Instructions .Route 04/05/24 11/27/24 Rx .COMPLEX #90 tabs pantoprazole 40 mg tablet,delayed 40 mg PO DAILY #90 tabs 04/05/24 11/27/24 Rx release fluticasone fur. 200 mcg-umeclid 1 inh inhalation DAILY #60 ea 06/20/24 11/27/24 Rx 62.5 mcg-vilant 25 mcg inhalat.powder (Trelegy Ellipta) atorvastatin 40 mg tablet 40 mg PO QHS #90 tabs 10/17/24 11/26/24 Rx albuterol sulfate 2.5 mg/3 mL 2.5 mg (3 mL) inhalation Q4H PRN 10/18/24 11/27/24 Rx (0.083 %) solution for nebulization Sob &/Or Wheezing #180 mL carvedilol 25 mg tablet 25 mg PO BID #180 tabs 10/19/24 11/27/24 Rx oxybutynin chloride 5 mg tablet 5 mg PO BID bladder #180 tabs 10/19/24 11/27/24 Rx losartan 25 mg tablet 25 mg PO QDAY #30 tabs 11/06/24 11/27/24 Rx trazodone 50 mg tablet 50 mg PO QHS PRN insomnia #30 tabs 11/06/24 Unknown Rx cephalexin 500 mg capsule 500 mg PO DAILY #20 caps 11/24/24 11/27/24 Rx albuterol sulfate 90 mcg/actuation 2 puff inhalation Q6H PRN for 11/27/24 11/27/24 History aerosol inhaler wheezing meclizine 25 mg tablet 25 mg PO 4X/DAY PRN PRN Dizziness 11/27/24 Unknown Rx #20 tabs potassium chloride 8 mEq 8 meq PO DAILY 11/27/24 11/27/24 History tablet,extended release (Klor-Con) Allergy/AdvReac Type Severity Reaction Status Date / Time metformin AdvReac Intermediate Other Verified 11/14/24 12:03 aspirin AdvReac Abd Verified 11/14/24 12:03 cramps/diarrhea codeine AdvReac Abd Verified 11/14/24 12:03 cramps/diarrhea Penicillins AdvReac Hives Verified 11/14/24 12:03 Family History Grandfather Cancer Daughter Ovarian cancer Brother Diabetes Kidney disease Surgical History History of esophagogastroduodenoscopy (EGD) Hx of colonoscopy History of bunionectomy Hx of cholecystectomy Social History Smoking Status: Former smoker Tobacco: How many years used: 30 how long ago did patient quit smokin years alcohol intake: never substance use type: does not use what type of physical activity do you participate in: none ROS ROS ED Constitutional Constitutional ED: Denies chills or fever(s) Eyes Eyes: Denies blurry vision or change in vision ENT ENT ED: Reports other Details: Sinus congestion Cardiovascular Cardiovascular: Reports other Details: Lower extremity edema ; Denies chest pain Respiratory/Chest Respiratory/Chest: Reports dyspnea and dyspnea on exertion; Denies cough Gastrointestinal Gastrointestinal: Reports nausea; Denies abdominal pain Musculoskeletal Musculoskeletal: Denies arthralgias or myalgias Neurologic Neurologic: Reports headache(s) and other Details: Vertigo EXAM Physical Exam Const Vital Signs: 11/27/24 16:13 11/27/24 18:12 11/27/24 20:00 Temperature 97.5 F L Temperature Source Temporal Pulse Rate 74 72 Respiratory Rate 20 H Blood Pressure 172/58 H 146/64 H Blood Pressure Mean 96 91 Pulse Ox 93 93 95 Oxygen Delivery Method Room Air Room Air Nasal Cannula Oxygen Flow Rate (L/min) 2 11/27/24 21:09 Temperature 98.0 F Temperature Source Pulse Rate 85 Respiratory Rate 18 Blood Pressure 158/59 H Blood Pressure Mean 92 Pulse Ox 95 Oxygen Delivery Method Oxygen Flow Rate (L/min) Positive well nourished and well developed General Appearance ED: well developed and NAD HEENT Reports moist mucous membranes Eyes PERRL and EOMs intact bilaterally Eyes Narrative: Bilateral fatiguing nystagmus most pronounced with rightward gaze. Neck supple and no JVD Chest Wall inspection of chest normal Resp normal respiratory effort Resp Narrative: Bibasilar crackles present. Normal work of breathing. Auscultation: Negative for wheezes or diminished lung sounds Cardio regular rate and regular rhythm GI normal to inspection, nondistended, normoactive bowel sounds and non-tender Extremity Extremity Narrative: Chronic appearing pitting edema up to the knees. Neuro oriented x3, CN's II-XII intact bilaterally and no sensory deficits noted Neuro Narrative: Slightly ataxic gait upon arrival and standing. Normal [id number]. No truncal ataxia present. Sensorium / Orientation: alert Motor Exam: strength 5/5 throughout and general weakness Psych mental status grossly normal Skin Skin Narrative: Chronic induration and thickening with erythema of the bilateral lower legs consistent with chronic lymphedema. MDM MDM MDM Narrative Medical decision making narrative: Patient is evaluated for dizziness is worsened today but started yesterday. She has had associated sinus headache and pressure. On exam she has nystagmus suspect she has peripheral vertigo. She does not have any issues with coordination or other neurologic symptoms. She does have neuropathy with decree sensation of her lower extremities but this is chronic for her. Patient is given meclizine for her symptoms. In addition patient does have significant peripheral edema and has a history of lymphedema. He notes that she has been short of breath and been told by her doctor that she might require admission for IV Lasix if the swelling is not improving. She states its only getting slightly better of her legs. Because of that I did also offer and patient accepted workup for fluid overload/CHF exacerbation. Do not think these 2 presentations are particularly related. CBC he is normal with no signs of infection (patient is currently on antibiotics for lower extremity wound/cellulitis). CMP largely normal. Her BNP is normal at 176. Chest x-ray reviewed by myself as well as radiology does show cardiomegaly with findings of volume overload/CHF. Patient is ambulated in the emergency room with her oxygen and does not go below 91%. Patient states that with her breathing she feels comfortable going home. Given that she does not desaturate below 90 and this is more of a chronic issue I think it is reasonable to let her continue outpatient treatment with her Lasix. She does feel improved after receiving meclizine for her vertigo and feels much better from with her dizziness and feel stable using her walker to ambulate. She does not feel that she needs admission for help with her dizziness/vertigo. Patient otherwise has normal neurologic exam and I do not think she requires CT of the brain. I do not think this is central vertigo based on physical exam. Patient given return precautions. Discharged home in stable improved condition. Lab Data Labs: Laboratory Results - last 24 hr 11/27/24 11/27/24 18:19 19:25 WBC 6.9 RBC 5.29 Hgb 13.5 Hct 43.4 MCV 82.0 MCH 25.5 L MCHC 31.1 L RDW Std Deviation 46.5 H RDW Coeff of Mike 15.6 H Plt Count 260 MPV 9.3 Immature Gran % (Auto) 0.400 Neut % (Auto) 66.7 Lymph % (Auto) 21.1 [place] % (Auto) 6.8 Eos % (Auto) 4.1 Baso % (Auto) 0.9 Absolute Neuts (auto) 4.6 Absolute Lymphs (auto) 1.45 Nucleated RBC % 0 Sodium 141 Potassium 4.0 Chloride 104 Carbon Dioxide 27.5 Anion Gap 10 BUN 16 Creatinine 0.90 Est GFR (MDRD) Non-Af 67 BUN/Creatinine Ratio 18.1 Glucose 118 H Calcium 9.3 Total Bilirubin 0.42 AST 16 ALT 8 Alkaline Phosphatase 94 NT pro BNP II 176 Total Protein 6.9 Albumin 3.7 Globulin 3.2 Albumin/Globulin Ratio 1.1 Urine Color Straw Urine Clarity Clear Urine pH 6.5 Ur Specific [place] 1.010 Urine Protein Negative Urine Glucose (UA) Normal Urine Ketones Negative Urine Occult Blood Negative Urine Nitrite Negative Urine Bilirubin Negative Urine Urobilinogen Normal Ur Leukocyte Esterase 25 H Urine RBC 0-5 SEEN Urine WBC 0-5 SEEN Ur Squamous Epith Cells 0-5 SEEN Urine Bacteria 0 SEEN Urine Mucus 0 SEEN Radiography Diagnostic Testing: Clinical Impression(s) from Imaging Studies Chest X-Ray 11/27/24 18:30 IMPRESSION: Findings compatible with CHF/volume overload including severe cardiomegaly, pulmonary edema and trace left pleural effusion. Reading Location: [facility] Rhythm Strip Rhythm Strip: Sinus Rhythm Rate: 82 Ectopy: None EKG Initial EKG: Attestation: I personally reviewed and interpreted this EKG as follows: Interpretation: Sinus Rhythm Comments: Normal sinus rhythm rate of 82 bpm Normal axis Normal intervals Nonspecific ST segment changes Low voltage QRS Prior EKG tracings: available for review Prior: Unchanged Discharge Plan Triage Chief Complaint: Dizziness ED Provider: Amara Reich Dx/Rx/DC Orders Clinical Impression: Peripheral vertigo, Lymphedema Instructions: ED BPV Vertigo, ED Lymphedema Prescriptions: New meclizine 25 mg tablet 25 mg PO 4X/DAY PRN PRN (Reason: Dizziness) Qty: 20 0RF No Action (DME) Nebulizer See Rx Instructions .ROUTE .MEDSUPPLY Qty: 1 0RF Rx Instructions: As directed (DME) Handicap Placard See Rx Instructions .ROUTE .MEDSUPPLY Qty: 1 0RF Rx Instructions: As directed, length of time 3 years (DME) Bedside Commode See Rx Instructions .Route .MEDSUPPLY Qty: 1 0RF Rx Instructions: As directed (DME) Ultra-Light Rollator Misc See Rx Instructions .Route Qty: 1 0RF Rx Instructions: As directed (DME) Cpap Supplies See Rx Instructions .Route .MEDSUPPLY Qty: 1 3RF Rx Instructions: As directed (DME) Aquacel Foam 4 X 4 bandage See Rx Instructions .Route Qty: 10 0RF Rx Instructions: As directed albuterol sulfate 2.5 mg /3 mL (0.083 %) solution for nebulization 2.5 mg inhalation Q4H PRN (Reason: Sob &/Or Wheezing) Qty: 180 11RF losartan 25 mg tablet 25 mg PO QDAY Qty: 30 3RF trazodone 50 mg tablet 50 mg PO QHS PRN (Reason: insomnia) Qty: 30 3RF docusate sodium [Stool Softener] 100 mg Capsule 100 mg PO BID cephalexin 500 mg capsule 500 mg PO DAILY Qty: 20 0RF potassium chloride [Klor-Con 8] 8 mEq tablet extended release 8 meq PO DAILY albuterol sulfate 90 mcg/actuation HFA aerosol inhaler 2 puff inhalation Q6H PRN furosemide 40 mg tablet 40 mg PO BID Qty: 180 4RF (DME) Ultra-Light Rollator Misc See Rx Instructions .Route Qty: 1 1RF Rx Instructions: As directed pantoprazole 40 mg tablet,delayed release (DR/EC) 40 mg PO DAILY Qty: 90 2RF Rx Instructions: 40 MG ORALY DAILY levothyroxine 100 mcg tablet See Rx Instructions .ROUTE .COMPLEX Qty: 90 3RF Dose Instruction: 100 MCG ORALLY DAILY FOR HYPOTHYROIDISM Rx Instructions: 100 MCG ORALLY DAILY FOR HYPOTHYROIDISM Trelegy Ellipta 200-62.5-25 mcg blister with device 1 inh inhalation DAILY Qty: 60 6RF atorvastatin 40 mg tablet 40 mg PO QHS Qty: 90 3RF oxybutynin chloride 5 mg tablet 5 mg PO BID Qty: 180 0RF carvedilol 25 mg tablet 25 mg PO BID Qty: 180 0RF Primary Care Provider: Luis Cortés Referrals: Luis Cortés MD [Primary Care Provider] - Keenan Mckeon MD [Med Staff - Active Staff] - Activity Restrictions/Additional Instructions: I suspect you have peripheral vertigo which is causing your dizziness. You been prescribed meclizine. You may take this as needed for dizziness. It is common for the symptoms to fluctuate. You been referred to early childhood teacher for follow-up for this. For your leg swelling please continue to follow-up with your primary care doctor. Continue to take your water pill, elevate your legs and wear compression stockings. If you feel like your breathing is worsening or your swelling is worsening please return to the emergency room. Print Language: Bangladeshi Disposition Disposition: Home, Self Care Discharge Date/Time: 11/27/24 21:27
[2024-11-27] MEDS: Meclizine HCl 25 MG Tablet PO (18:36)
[2024-11-27 18:53] LABS: ALB/GLOB Ratio 1.1 RATIO (0.9-2.4); AST(SGOT) 16 U/L (<=31); Absolute Lymphocyte Count 1.45 X10^3/uL (0.83-4.51); Absolute Neutrophil Count 4.6 X10^3/uL (2.0-7.7); Alanine Aminotransfer ALT/SGPT 8 U/L (<=34); Albumin, Serum 3.7 g/dL (3.4-4.8); Alkaline Phosphatase 94 U/L (35-104); Anion Gap 10 (5-15); BUN 16 mg/dL (4-19); BUN/Creat Ratio 18.1 RATIO (10-20); Basophil# 0.06 X10^3/uL; Basophil% 0.9 % (0-1); Calcium,Total 9.3 mg/dL (7.6-11.0); Carbon Dioxide 27.5 mmol/L (21.0-32.0); Chloride 104 mmol/L (98-108); EST Glomerular Filtration Rate 67 (>60); Eosinophil# 0.28 X10^3/uL; Eosinophils% 4.1 % (0-5); Globulin 3.2 g/dL (2.2-4.2); Glucose 118 mg/dL (70-99); Hematocrit 43.4 % (37-47); Hemoglobin 13.5 g/dL (12.0-15.0); Lymphocyte # 1.45 X10^3/ul (0.83-4.51); Lymphocyte % 21.1 % (19-41); Mean Corp Hgb Conc 31.1 g/dL (32-36); Mean Corpuscular Hgb 25.5 pg (27.0-32.0); Mean Platelet Vol. 9.3 fl (6.2-12.0); Monocyte# 0.47 X10^3/uL; Monocyte% 6.8 % (0-10); NRBC Flagged by Analyzer 0 % (0-5); Neutrophil # 4.59 X10^3/uL (2.7-7.7); Neutrophil % 66.7 % (47-70); Platelet Count 260 K/mm3 (150-450); Pro- Brain NATRIURETIC PEPTIDE 176 pg/mL (<=1800); Protein, Total 6.9 g/dL (5.9-8.4); RBC Distribution Width CV 15.6 % (11.6-14.6); RBC Distribution Width SD 46.5 fl (35.1-43.9); Red Blood Count 5.29 M/mm3 (4.2-5.4); Sodium Level 141 mmol/L (133-145); Total Bilirubin 0.42 mg/dL (0.00-1.30); White Blood Count 6.9 K/mm3 (4.4-11.0)
[2024-11-27 19:30] VITALS: O2SAT 90
[2024-11-27 19:32] LABS: Bacteria 0 SEEN /hpf (None Seen); Mucous, Urine 0 SEEN /hpf (<or=2+)
[2024-11-27 19:37] LABS: Color, Urine Straw (Yellow); Glucose, Dipstick Normal (Normal); Ketone-Dipstick Negative (Negative); Leukocyte Esterase-Dipstick 25 /ul (Negative); Nitrite-Dipstick Negative (Negative); Occult Blood-Urine Negative /ul (Negative); Protein-Dipstick Negative (Negative); Urine Bilirubin Dipstick Negative (Negative); Urine Clarity Clear (Clear); Urine Urobilinogen Normal (Normal); Urine pH 6.5 (5.0 - 8.0)
[2024-11-27 20:00] VITALS: O2SAT 95
[2024-11-27 20:03] LABS: Red Blood Cells-Urine 0-5 SEEN /hpf (0-5); Squamous Epithelial Cells - UA 0-5 SEEN /hpf (5-10); White Blood Cells 0-5 SEEN /hpf (0-5)
[2024-11-27 21:09] VITALS: BP 158/59; PULSE 85; RESP 18; TEMP 36.7; O2SAT 95
== END 2024-11-27 21:27 | disposition home or self-care (01) ==
PROVIDERS: Emergency Provider Emergency Medicine; PCP Internal Medicine; Visit Provider Emergency Medicine
DX: H81.399 Other peripheral vertigo, unspecified ear (principal); I11.0 Hypertensive heart disease with heart failure; I50.9 Heart failure, unspecified; J44.9 Chronic obstructive pulmonary disease, unspecified; E11.40 Type 2 diabetes mellitus with diabetic neuropathy, unspecified; E11.51 Type 2 diabetes mellitus with diabetic peripheral angiopathy without gangrene; I89.0 Lymphedema, not elsewhere classified; E78.5 Hyperlipidemia, unspecified; Z79.51 Long term (current) use of inhaled steroids; Z79.899 Other long term (current) drug therapy; Z86.16 Personal history of COVID-19; Z87.891 Personal history of nicotine dependence
CPT/HCPCS: 71046; 80053; 81001; 83880; 85025; 93005; 99283; A4216

== ENCOUNTER 2024-12-15 10:15 | Outpatient (RCR) | payer MEDICARE, MEDICAID, SELFPAY ==
[2024-11-19 00:36] VITALS: BP 153/76; PULSE 77; RESP 20; TEMP 36.8; O2SAT 92; BMI 49.8
[2024-11-24 10:57] VITALS: BP 147/79; PULSE 73; RESP 18; TEMP 35.9; BMI 49.8
--- NOTE | 2024-11-24 13:07 | PCM.WC.PN ---
History of Present Illness Date of Service: 11/24/24 Chief Complaint: ulcers b/l LE, bilateral lower extremity swelling History of Wound: Liz is a pleasant 74 yo woman that presents to the wound center for bilateral lower extremity edema and blisters and drainage of her bilateral lower extremities. She has had increased edema the last 2 weeks and her legs started seeping a few days ago. She has been wearing her tubigrip compression and had been using the lymphedema pumps until they started seeping fluid. She tries to elevate her legs when she is sitting but is not always consistent with doing this. She has been wrapping her leg with gauze when it is seeping but otherwise has not been doing any regular dressings. Patient has been treated at the wound center in the past for similar wounds, most recently October 2023. She has also been seen in the vascular surgery clinic where she was evaluated her for BLE DVT and venous insufficiency. 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 GSV ablation has been done to her right lower leg. She has received lymphedema pumps that were ordered during her last treatment course and has been using these. Last venous study was 03/2022. Last A1C 01/2023 was 6.4%. Last TSH - 01/2022 Patient's medical history is also significant for CHF, COPD, T2DM, lymphedema. She has a CPAP but has not been using this due to needing a new mask. She states that a prescription was to be sent and she never received the mask. Her current mask has a hole in it. Subjective Subjective Liz returns today for treatment of edema/ulcers to bilateral lower legs. She underwent venous ablation of left lower leg on 07/27/2024 but has not had resolution of drainage from the left lower leg since then with intermittent ulcer development. She has been using super absorbers and Kerlix to both legs for the last week and has continued to have drainage from both lower legs over the last week with resolution of right LE ulcer and drainage. Left lateral LE still is draining but less after IV antibiotic. She has been more compliant with water pill and use of lymphedema pumps this week. Gentamicin IV course completed. Objective Data Objective Data Vital Signs: Vital Signs Temp Pulse Resp BP Pulse Ox 96.6 F L 73 18 147/79 H 92 11/24/24 10:57 11/24/24 10:57 11/24/24 10:57 11/24/24 10:57 11/19/24 00:36 Weight: 140.16 kg Body Mass Index (BMI) 49.8 Physical Exam Const alert, oriented x3, no apparent distress and healthy appearing General Appearance: cooperative; Negative for combative or lethargic Orientation / Consciousness: awake Exam Limitations: no limitations Nutritional Appearance: obese HEENT normocephalic and head/scalp atraumatic Eyes EOMs intact bilaterally General Eye: normal appearance of both eyes Neck full ROM General: trachea midline Lymph Lymphatic: lymphedema severe and pitting Resp normal respiratory effort and no use of accessory muscles Effort and Inspection: Negative for labored, stridor or audible wheezes Cardio regular rate and regular rhythm Back/Spine Cervical Spine: cervical ROM normal Extremity full ROM, normal capillary refill and no clubbing, cyanosis or edema General Extremity: edema bilateral lower extremity Details: severe (with skin changes associated with lymphedema, thickened nodular appearance from mid allen to ankle) Skin General Skin Exam: erythema, venous stasis and dermatitis Wounds: wounds noted Wound Narrative: as in clinical panel, stable erythema and light serous drainage from bilateral lower legs with small ulcers on lateral aspects bilaterally, nodular appearance of skin associated with lymphedema Neuro oriented x3, CN's II-XII intact bilaterally, no focal motor deficits and no sensory deficits noted Psych thought process normal, cooperative, affect normal, speech normal and activity/motor behavior normal Debridement Note Debridement Note Wound debrided: right lateral LE Laterality: Right No debridement was completed: No debridement was completed today Post-Debridement Measurements and Additional Note: Post-Debridement Measurements/Treatment [facility] Nurse 1 - General Ulcer Assessment Start: 11/24/24 10:57 Freq: Status: Active Protocol: JESÚS.LOWEXT Activity Type Activity Date Activity User E-sign Co-sign Detail Recorded Client Recorded Date Recorded By Document 11/24/24 10:57 [id number] 11/24/24 11:00 ROBERT 11/24/24 10:57 - Today's Visit Information Type of service Follow-up Visit (Physician/[employer] ) Arrival Mode Ambulatory, Walker Transfer Assistance None Accompanied by Patient Identification Verified (Name & Yes ) Patient Requires Transmission-Based No Precautions Height and Weight Body Mass Index (BMI) 49.8 BMI Classification Obese Vital Signs Temperature (97.8 F-99.1 F) 96.6 F L Temperature Source Temporal Pulse Rate (60-100) 73 Pulse Location Monitor Respiratory Rate (12-18) 18 Respiratory rate source Observation Blood Pressure (90/60-120/80) 147/79 H Blood Pressure Mean (mm Hg) 101 Source Monitor Position Semi-Fowlers Blood Pressure Location Left Arm History Since Last Visit- (Skip if this is Patient's initial visit) Have you changed medications since your No last visit? Any new allergies or adverse reactions No Had a fall/change in ADL's that may No increase risk of falls Signs or symptoms of abuse and/or No neglect since last visit Have you been in the hospital since your No last visit? Has dressing in place as prescribed Yes Has compression in place as prescribed Yes Has offloadiing in place as prescribed N/A Experienced any changes in pain level or No management Left Footwear Regular Shoe Right Footwear Regular Shoe Pain Scale: 0-10 Numeric Is Patient Pain Free? Yes WC - Nurse 1 - General Ulcer Measurement Start: 11/24/24 10:57 Freq: Status: Active Protocol: Activity Type Activity Date Activity User E-sign Co-sign Detail Recorded Client Recorded Date Recorded By Document 11/24/24 10:57 ROBERT [id number] 11/24/24 11:00 ROBERT 11/24/24 10:57 Wound Center Nurse 1 #9 Left Lateral Allen -Combined with other wound No -Current Size (cm) - Length 0.1 -Current Size (cm) - Width 0.1 -Current Size (cm) - Depth 0.1 -Total Square Cm 0.01 -Photo Taken Yes -Epithelialization Large 67-100% -Tunneling No -Undermining/Tunneling No -Circular Undermining No -Exudate Amt Small -Exudate Type Serosanguineous -Wound Margin Indistinct, Non -Visible -Granulation Amt Large (67-100%) -Granulation Quality Mccune -Slough/Fibrin Yes -Necrosis Amt Small (1-33%) -Necrotic Tissue Type Adherent Slough -Structure Exposed N/A -Texture (Adrianna-wound Skin Appearance) Assessed -Moisture (Adrianna-wound Skin Appearance) Weeping -Color (Adrianna-wound Skin Appearance) Assessed -Temperature (Adrianna-wound Skin No Abnormality Appearance) (Pt Warm) -Tenderness on Palpation (Adrianna-wound No Skin Appearance) -Ulcer Cleansing Wound Cleanser -Foul Odor after Cleansing No -Anesthetic Used 5% Lidocaine Gel #10 RT LAT LE -Current Size (cm) - Length 0.1 -Current Size (cm) - Width 0.1 -Current Size (cm) - Depth 0.1 -Total Square Cm 0.01 -Photo Taken Yes -Tunneling No -Undermining/Tunneling No -Circular Undermining No -Exudate Amt Small -Exudate Type Serosanguineous -Wound Margin Indistinct, Non -Visible -Granulation Amt Large (67-100%) -Granulation Quality Mccune -Slough/Fibrin Yes -Necrosis Amt Small (1-33%) -Necrotic Tissue Type Adherent Slough -Structure Exposed N/A -Texture (Adrianna-wound Skin Appearance) Assessed -Moisture (Adrianna-wound Skin Appearance) Weeping -Color (Adrianna-wound Skin Appearance) Assessed -Temperature (Adrianna-wound Skin No Abnormality Appearance) (Pt Warm) -Tenderness on Palpation (Adrianna-wound No Skin Appearance) -Ulcer Cleansing Wound Cleanser -Foul Odor after Cleansing No -Anesthetic Used 5% Lidocaine Gel Lower Limb Edema Present Yes Right Calf (cm) 55 Right Ankle (cm) 29.5 Left Calf (cm) 53.7 Left Ankle (cm) 29.5 WC - Nurse 2 - General Ulcer CM Notes Start: 11/24/24 10:57 Freq: Status: Active Protocol: Activity Type Activity Date Activity User E-sign Co-sign Detail Recorded Client Recorded Date Recorded By Document 11/24/24 11:49 GM [id number] 11/24/24 11:50 GM 11/24/24 11:49 Pain Scale: 0-10 Numeric Is Patient Pain Free? Yes WC - Nurse 3 - General Ulcer D/C NN Start: 11/24/24 10:57 Freq: Status: Active Protocol: Activity Type Activity Date Activity User E-sign Co-sign Detail Recorded Client Recorded Date Recorded By Document 11/24/24 12:40 RB [id number] 11/24/24 12:40 RB 11/24/24 12:40 Wound Care Center Nurse 3 BLE -Lotion applied to leg before Yes compression wrap -Tubular Bandage Double Layer -Size of Tubigrip Used Size F -Size F ($) 4 Treatment Response Procedure Tolerated Well Pain Scale: 0-10 Numeric Is Patient Pain Free? Yes WC - Visit Discharge Discharge Condition Stable Ambulatory Status Ambulatory Transportation Private Auto Accompanied by Medication Reconcilliation completed & No provided to patient/care provider Clinical Summary of Care Provided Yes Additional Wound Wound debrided: left lateral LE Laterality: Left Type of Debridement: Selective debridement Anesthesia Used: 4% Lidocaine Solution Depth: Down to and including healthy tissue and in the subcutaneous layer Instrument Used: - (gauze) Tissue Removed: Yellow slough, devitalized tissue Severity: Limited To Skin Breakdown Amount of bleeding with debridement: None Patient tolerated procedure: Patient tolerated procedure well Assessment/Plan Assessment/Plan (1) Non-pressure chronic ulcer left lower leg, limited to breakdown skin: CODE(S): L97.921 - Non-pressure chronic ulcer of unspecified part of left lower leg limited to breakdown of skin (2) Venous insufficiency: CODE(S): I87.2 - Venous insufficiency (chronic) (peripheral) (3) Edema of both lower extremities: CODE(S): R60.0 - Localized edema (4) Lymphedema: CODE(S): I89.0 - Lymphedema, not elsewhere classified (5) Essential hypertension: CODE(S): I10 - Essential (primary) hypertension (6) Morbid obesity with BMI of 45.0-49.9, adult: CODE(S): E66.01 - Morbid (severe) obesity due to excess calories; Z68.42 - Body mass index [BMI] 45.0-49.9, adult (7) Debility: CODE(S): R53.81 - Other malaise (8) Osteoarthritis: CODE(S): M19.90 - Unspecified osteoarthritis, unspecified site QUALIFIERS: Osteoarthritis location: multiple joints Osteoarthritis type: primary Qualified Code(s): M15.9 - Polyosteoarthritis, unspecified (9) COPD (chronic obstructive pulmonary disease): CODE(S): J44.9 - Chronic obstructive pulmonary disease, unspecified QUALIFIERS: COPD type: unspecified COPD Qualified Code(s): J44.9 - Chronic obstructive pulmonary disease, unspecified (10) Chronic hypoxemic respiratory failure: CODE(S): J96.11 - Chronic respiratory failure with hypoxia (11) Pulmonary hypertension: CODE(S): I27.20 - Pulmonary hypertension, unspecified (12) Hypothyroidism: CODE(S): E03.9 - Hypothyroidism, unspecified QUALIFIERS: Hypothyroidism type: unspecified Qualified Code(s): E03.9 - Hypothyroidism, unspecified (13) Type 2 diabetes mellitus: CODE(S): E11.9 - Type 2 diabetes mellitus without complications QUALIFIERS: Diabetes mellitus complication status: with other specified complication Diabetes mellitus terminal computer operator insulin use: without terminal computer operator use Qualified Code(s): E11.69 - Type 2 diabetes mellitus with other specified complication (14) DOLORES (obstructive sleep apnea): CODE(S): G47.33 - Obstructive sleep apnea (adult) (pediatric) (15) Cellulitis of left lower extremity: CODE(S): L03.116 - Cellulitis of left lower limb (16) Venous ulcer with fat layer exposed: CODE(S): I83.009 - Varicose veins of unspecified lower extremity with ulcer of unspecified site; L97.902 - Non-pressure chronic ulcer of unspecified part of unspecified lower leg with fat layer exposed (17) Venous stasis ulcer of right calf with fat layer exposed: CODE(S): I83.012 - Varicose veins of right lower extremity with ulcer of calf; L97.212 - Non-pressure chronic ulcer of right calf with fat layer exposed QUALIFIERS: Varicose vein presence: with varicose veins Qualified Code(s): I83.012 - Varicose veins of right lower extremity with ulcer of calf; L97.212 - Non-pressure chronic ulcer of right calf with fat layer exposed (18) Venous stasis ulcer of left calf with fat layer exposed: CODE(S): I83.022 - Varicose veins of left lower extremity with ulcer of calf; L97.222 - Non-pressure chronic ulcer of left calf with fat layer exposed QUALIFIERS: Varicose vein presence: with varicose veins Qualified Code(s): I83.022 - Varicose veins of left lower extremity with ulcer of calf; L97.222 - Non-pressure chronic ulcer of left calf with fat layer exposed PLAN: Plan Evaluation and debridement performed today in clinic as annotated above. At home wound-care instructions: Will dress left lower leg with super absorber or ABD and roll gauze changed daily for heavy drainage. She was instructed to keep dressings clean and dry. Will have her use lymphedema pumps for 60 minutes 2-3 times daily. She has been noncompliant with pumps and was encouraged to increase frequency. Also, encouraged to take diuretic daily. Off-loading: The patient was instructed to avoid pressure and friction on the affected areas. Reposition every 2 hours at minimum. Avoid prolonged standing and/or dangling of legs. When seated, feet should be elevated at chest level. Frequent ambulation is encouraged. Diet: Patient encouraged to increase protein intake while taking caution to avoid high carbohydrate and/or sugar intake. Encouraged weight loss. Labs/cultures/imaging: Wound Culture of left allen ulcer showed pseudomonas and MRSA. Ciprofloxacin prescribed. Venous ultrasound showed incompetence of veins of left lower extremity and vascular performed an ablation on 07/27/2024. Culture showed E. faecalis, anaerobic bacteria and Pseudomonas advised to restart Ciprofloxacin and Flagyl was prescribed for Anaerobic bacteria. 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 She has been referred to infectious disease and they will see her 09/27/2024. We are going to try treating her with Bactrim DS until she sees Dr. Johnson. She is tolerating this. Completed Bactrim DS. Wound culture taken 11/03/24 was positive. Completed Gentamicin IV x 10 days and Flagyl as of 11/22/24. Xray of left lower leg did not show osteomyelitis. Repeat venous testing did not show thrombosis or failure of previous venous ablation. Encouraged her to get her CPAP mask to improve DOLORES and pulmonary HTN treatment compliance which is adding to her decompensated lymphedema. Follow-up: Will have her follow up in 2 weeks. Return sooner or report to the emergency room should symptoms worsen, or new symptoms arise. Note: [employer] speech recognition tire mold engraver software was used to create portions of this document. Sound-alike and misspelled words, as well as other tire mold engraver errors may be contained in the documentation.
--- NOTE | 2024-11-27 08:33 | WC ---
PHOTO 11/24/24 TAO
[2024-12-15 10:38] VITALS: BP 124/62; PULSE 96; RESP 18; TEMP 36.5; BMI 49.8
--- NOTE | 2024-12-15 10:43 | WC ---
pt states she has had c/o of dizziness for the past 2 weeks. Pt assisted into room per Wheelchair. pt states dizziness subsides when sitting still. Pt visiting ENT Doctor and Emergency Department this past week pt states
--- NOTE | 2024-12-15 14:04 | PN.PCM_ITS ---
History of Present Illness Date of Service: 12/15/24 Chief Complaint: ulcers b/l LE, bilateral lower extremity swelling History of Wound: Liz is a pleasant 74 yo woman that presents to the wound center for bilateral lower extremity edema and blisters and drainage of her bilateral lower extremities. She has had increased edema the last 2 weeks and her legs started seeping a few days ago. She has been wearing her tubigrip compression and had been using the lymphedema pumps until they started seeping fluid. She tries to elevate her legs when she is sitting but is not always consistent with doing this. She has been wrapping her leg with gauze when it is seeping but otherwise has not been doing any regular dressings. Patient has been treated at the wound center in the past for similar wounds, most recently October 2023. She has also been seen in the vascular surgery clinic where she was evaluated her for BLE DVT and venous insufficiency. 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 GSV ablation has been done to her right lower leg. She has received lymphedema pumps that were ordered during her last treatment course and has been using these. Last venous study was 03/2022. Last A1C 01/2023 was 6.4%. Last TSH - 01/2022 Patient's medical history is also significant for CHF, COPD, T2DM, lymphedema. She has a CPAP but has not been using this due to needing a new mask. She states that a prescription was to be sent and she never received the mask. Her current mask has a hole in it. Subjective Subjective Liz returns today for treatment of edema/ulcers to bilateral lower legs. She underwent venous ablation of left lower leg on 07/27/2024 but has not had resolution of drainage from the left lower leg since then with intermittent ulcer development. She has been using super absorbers and Kerlix to both legs for the last week and has continued to have drainage from both lower legs. Left lateral LE still is draining but less after IV antibiotic. She has been more compliant with water pill and use of lymphedema pumps this week. Gentamicin IV course completed. Objective Data Objective Data Vital Signs: Vital Signs Temp Pulse Resp BP Pulse Ox O2 Del Method FiO2 97.7 F L 96 18 124/62 H 92 Room Air 96 12/15/24 10:38 12/15/24 10:38 12/15/24 10:38 12/15/24 10:38 11/19/24 00:36 12/15/24 10:38 12/15/24 10:38 Oxygen Delivery Method Room Air Weight: 140.16 kg Body Mass Index (BMI) 49.8 Physical Exam Const alert, oriented x3, no apparent distress and healthy appearing General Appearance: cooperative; Negative for combative or lethargic Orientation / Consciousness: awake Exam Limitations: no limitations Nutritional Appearance: obese HEENT normocephalic and head/scalp atraumatic Eyes EOMs intact bilaterally General Eye: normal appearance of both eyes Neck full ROM General: trachea midline Lymph Lymphatic: lymphedema severe and pitting Resp normal respiratory effort and no use of accessory muscles Effort and Inspection: Negative for labored, stridor or audible wheezes Cardio regular rate and regular rhythm Back/Spine Cervical Spine: cervical ROM normal Extremity full ROM, normal capillary refill and no clubbing, cyanosis or edema General Extremity: edema bilateral lower extremity Details: severe (with skin changes associated with lymphedema, thickened nodular appearance from mid allen to ankle) Skin General Skin Exam: erythema, venous stasis and dermatitis Wounds: wounds noted Wound Narrative: as in clinical panel, stable erythema and light serous drainage from bilateral lower legs with small ulcers on lateral aspects bilaterally, nodular appearance of skin associated with lymphedema Neuro oriented x3, CN's II-XII intact bilaterally, no focal motor deficits and no sensory deficits noted Psych thought process normal, cooperative, affect normal, speech normal and activity/motor behavior normal Debridement Note Debridement Note No debridement was completed: No debridement was completed today (no open ulcers - just general drainage) Post-Debridement Measurements and Additional Note: Post-Debridement Measurements/Treatment - Nurse 1 - General Ulcer Assessment Start: 11/24/24 10:57 Freq: Status: Active Protocol: KELSEY Activity Type Activity Date Activity User E-sign Co-sign Detail Recorded Client Recorded Date Recorded By Document 11/24/24 10:57 RB [id number] 11/24/24 11:00 RB Document 12/15/24 10:38 RB [id number] 12/15/24 10:53 RB 11/24/24 12/15/24 10:57 10:38 - Today's Visit Information Type of service Follow-up Visit Follow-up Visit (Physician/FUNERAL LOCATION MANAGER (Physician/FUNERAL LOCATION MANAGER ) ) Arrival Mode Ambulatory, Ambulatory, Walker Walker Transfer Assistance None Manual Accompanied by Patient Identification Verified (Name & Yes Yes ) Patient Requires Transmission-Based No No Precautions Height and Weight Body Mass Index (BMI) 49.8 49.8 BMI Classification Obese Obese Vital Signs Temperature (97.8 F-99.1 F) 96.6 F L 97.7 F L Temperature Source Temporal Temporal Pulse Rate (60-100) 73 96 Pulse Location Monitor Monitor Respiratory Rate (12-18) 18 18 Respiratory rate source Observation Observation Oxygen Delivery Method Room Air FIO2 % 96 Blood Pressure (90/60-120/80) 147/79 H 124/62 H Blood Pressure Mean (mm Hg) 101 82 Source Monitor Monitor Position Semi-Fowlers Semi-Fowlers Blood Pressure Location Left Arm Left Arm History Since Last Visit- (Skip if this is Patient's initial visit) Have you changed medications since your No No last visit? Any new allergies or adverse reactions No No Had a fall/change in ADL's that may No No increase risk of falls Signs or symptoms of abuse and/or No No neglect since last visit Have you been in the hospital since your No No last visit? Has dressing in place as prescribed Yes Yes Has compression in place as prescribed Yes Yes Has offloadiing in place as prescribed N/A N/A Experienced any changes in pain level or No No management Left Footwear Regular Shoe Regular Shoe Right Footwear Regular Shoe Regular Shoe Pain Scale: 0-10 Numeric Is Patient Pain Free? Yes Yes 12/15/24 10:43 Wound Center by Zahira Nolasco pt states she has had c/o of dizziness for the past 2 weeks. Pt assisted into room per Wheelchair. pt states dizziness subsides when sitting still. Pt visiting ENT Doctor and Emergency Department this past week pt states Initialized on 12/15/24 10:43 - END OF NOTE WC - Nurse 1 - General Ulcer Measurement Start: 11/24/24 10:57 Freq: Status: Active Protocol: Activity Type Activity Date Activity User E-sign Co-sign Detail Recorded Client Recorded Date Recorded By Document 11/24/24 10:57 RB [id number] 11/24/24 11:00 RB Document 12/15/24 10:38 RB [id number] 12/15/24 10:53 RB 11/24/24 12/15/24 10:57 10:38 Wound Center Nurse 1 #9 Left Lateral Allen -Combined with other wound No -Current Size (cm) - Length 0.1 -Current Size (cm) - Width 0.1 -Current Size (cm) - Depth 0.1 -Total Square Cm 0.01 -Photo Taken Yes -Epithelialization Large 67-100% -Tunneling No -Undermining/Tunneling No -Circular Undermining No -Exudate Amt Small -Exudate Type Serosanguineous -Wound Margin Indistinct, Non -Visible -Granulation Amt Large (67-100%) -Granulation Quality [place] -Slough/Fibrin Yes -Necrosis Amt Small (1-33%) -Necrotic Tissue Type Adherent Slough -Structure Exposed N/A -Texture (Adrianna-wound Skin Appearance) Assessed -Moisture (Adrianna-wound Skin Appearance) Weeping -Color (Adrianna-wound Skin Appearance) Assessed -Temperature (Adrianna-wound Skin No Abnormality Appearance) (Pt Warm) -Tenderness on Palpation (Adrianna-wound No Skin Appearance) -Ulcer Cleansing Wound Cleanser -Foul Odor after Cleansing No -Anesthetic Used 5% Lidocaine Gel #10 RT LAT LE -Current Size (cm) - Length 0.1 -Current Size (cm) - Width 0.1 -Current Size (cm) - Depth 0.1 -Total Square Cm 0.01 -Photo Taken Yes -Tunneling No -Undermining/Tunneling No -Circular Undermining No -Exudate Amt Small -Exudate Type Serosanguineous -Wound Margin Indistinct, Non -Visible -Granulation Amt Large (67-100%) -Granulation Quality [place] -Slough/Fibrin Yes -Necrosis Amt Small (1-33%) -Necrotic Tissue Type Adherent Slough -Structure Exposed N/A -Texture (Adrianna-wound Skin Appearance) Assessed -Moisture (Adrianna-wound Skin Appearance) Weeping -Color (Adrianna-wound Skin Appearance) Assessed -Temperature (Adrianna-wound Skin No Abnormality Appearance) (Pt Warm) -Tenderness on Palpation (Adrianna-wound No Skin Appearance) -Ulcer Cleansing Wound Cleanser -Foul Odor after Cleansing No -Anesthetic Used 5% Lidocaine Gel Lower Limb Edema Present Yes Yes Right Calf (cm) 55 56.8 Right Ankle (cm) 29.5 27 Left Calf (cm) 53.7 54 Left Ankle (cm) 29.5 30.5 WC - Nurse 2 - General Ulcer CM Notes Start: 11/24/24 10:57 Freq: Status: Active Protocol: Activity Type Activity Date Activity User E-sign Co-sign Detail Recorded Client Recorded Date Recorded By Document 11/24/24 11:49 GM [id number] 11/24/24 11:50 GM Document 12/15/24 11:33 GM [id number] 12/15/24 11:34 GM 11/24/24 12/15/24 11:49 11:33 Pain Scale: 0-10 Numeric Is Patient Pain Free? Yes Yes - Nurse 3 - General Ulcer D/C NN Start: 11/24/24 10:57 Freq: Status: Active Protocol: Activity Type Activity Date Activity User E-sign Co-sign Detail Recorded Client Recorded Date Recorded By Document 11/24/24 12:40 RB [id number] 11/24/24 12:40 RB Document 12/15/24 12:14 KW [id number] 12/15/24 12:15 KW 11/24/24 12/15/24 12:40 12:14 Wound Care Center Nurse 3 lle -Primary Dressing Applied Optilok 5x5 1/2 -Optilok 5x5 1/2 1 BLE -Lotion applied to leg before Yes compression wrap -Multi-Layered Wrap Application Unna Boot - Bilateral -Tubular Bandage Double Layer -Size of Tubigrip Used Size F -Size F ($) 4 -Unna- Bilat (Qty applied) 1 Treatment Response Procedure Tolerated Well Pain Scale: 0-10 Numeric Is Patient Pain Free? Yes Yes WC - Visit Discharge Discharge Condition Stable Stable Ambulatory Status Ambulatory Ambulatory, Walker Transportation Private Auto Private Auto Accompanied by Medication Reconcilliation completed & No No provided to patient/care provider Clinical Summary of Care Provided Yes Yes Assessment/Plan Assessment/Plan (1) Non-pressure chronic ulcer left lower leg, limited to breakdown skin: CODE(S): L97.921 - Non-pressure chronic ulcer of unspecified part of left lower leg limited to breakdown of skin (2) Venous insufficiency: CODE(S): I87.2 - Venous insufficiency (chronic) (peripheral) (3) Edema of both lower extremities: CODE(S): R60.0 - Localized edema (4) Lymphedema: CODE(S): I89.0 - Lymphedema, not elsewhere classified (5) Essential hypertension: CODE(S): I10 - Essential (primary) hypertension (6) Morbid obesity with BMI of 45.0-49.9, adult: CODE(S): E66.01 - Morbid (severe) obesity due to excess calories; Z68.42 - Body mass index [BMI] 45.0-49.9, adult (7) Debility: CODE(S): R53.81 - Other malaise (8) Osteoarthritis: CODE(S): M19.90 - Unspecified osteoarthritis, unspecified site QUALIFIERS: Osteoarthritis location: multiple joints Osteoarthritis type: primary Qualified Code(s): M15.9 - Polyosteoarthritis, unspecified (9) COPD (chronic obstructive pulmonary disease): CODE(S): J44.9 - Chronic obstructive pulmonary disease, unspecified QUALIFIERS: COPD type: unspecified COPD Qualified Code(s): J44.9 - Chronic obstructive pulmonary disease, unspecified (10) Chronic hypoxemic respiratory failure: CODE(S): J96.11 - Chronic respiratory failure with hypoxia (11) Pulmonary hypertension: CODE(S): I27.20 - Pulmonary hypertension, unspecified (12) Hypothyroidism: CODE(S): E03.9 - Hypothyroidism, unspecified QUALIFIERS: Hypothyroidism type: unspecified Qualified Code(s): E03.9 - Hypothyroidism, unspecified (13) Type 2 diabetes mellitus: CODE(S): E11.9 - Type 2 diabetes mellitus without complications QUALIFIERS: Diabetes mellitus exterminator helper termite insulin use: without mcc use Diabetes mellitus complication status: with other specified complication Qualified Code(s): E11.69 - Type 2 diabetes mellitus with other specified complication (14) DOLORES (obstructive sleep apnea): CODE(S): G47.33 - Obstructive sleep apnea (adult) (pediatric) (15) Cellulitis of left lower extremity: CODE(S): L03.116 - Cellulitis of left lower limb (16) Venous ulcer with fat layer exposed: CODE(S): I83.009 - Varicose veins of unspecified lower extremity with ulcer of unspecified site; L97.902 - Non-pressure chronic ulcer of unspecified part of unspecified lower leg with fat layer exposed (17) Venous stasis ulcer of right calf with fat layer exposed: CODE(S): I83.012 - Varicose veins of right lower extremity with ulcer of calf; L97.212 - Non-pressure chronic ulcer of right calf with fat layer exposed QUALIFIERS: Varicose vein presence: with varicose veins Qualified Code(s): I83.012 - Varicose veins of right lower extremity with ulcer of calf; L97.212 - Non-pressure chronic ulcer of right calf with fat layer exposed (18) Venous stasis ulcer of left calf with fat layer exposed: CODE(S): I83.022 - Varicose veins of left lower extremity with ulcer of calf; L97.222 - Non-pressure chronic ulcer of left calf with fat layer exposed QUALIFIERS: Varicose vein presence: with varicose veins Qualified Code(s): I83.022 - Varicose veins of left lower extremity with ulcer of calf; L97.222 - Non-pressure chronic ulcer of left calf with fat layer exposed PLAN: Plan Evaluation and debridement performed today in clinic as annotated above. At home wound-care instructions: Will apply UNNA boots to b/l LE and apply superabsorber to left lateral leg and ABD to right lateral leg and have them zoe nged next week as a nurse visit and return to clinic 12/29. She was instructed to keep dressings clean and dry. Will have her use lymphedema pumps for 60 minutes 2-3 times daily. She has been noncompliant with pumps and was encouraged to increase frequency. Also, encouraged to take diuretic daily. Off-loading: The patient was instructed to avoid pressure and friction on the affected areas. Reposition every 2 hours at minimum. Avoid prolonged standing and/or dangling of legs. When seated, feet should be elevated at chest level. Frequent ambulation is encouraged. Diet: Patient encouraged to increase protein intake while taking caution to avoid high carbohydrate and/or sugar intake. Encouraged weight loss. Labs/cultures/imaging: Wound Culture of left allen ulcer showed pseudomonas and MRSA. Ciprofloxacin prescribed. Venous ultrasound showed incompetence of veins of left lower extremity and vascular performed an ablation on 07/27/2024. Culture showed E. faecalis, anaerobic bacteria and Pseudomonas advised to restart Ciprofloxacin and Flagyl was prescribed for Anaerobic bacteria. 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 She has been referred to infectious disease and they will see her 09/27/2024. We are going to try treating her with Bactrim DS until she sees Dr. Johnson. She is tolerating this. Completed Bactrim DS. Completed IV Gentamicin. Repeat venous testing did not show thrombosis or failure of previous venous ablation. Encouraged her to get her CPAP mask to improve DOLORES and pulmonary HTN treatment compliance which is adding to her decompensated lymphedema. Follow-up: Will have her follow up in 2 weeks. Return sooner or report to the emergency room should symptoms worsen, or new symptoms arise. Note: [employer] speech recognition wind tunnel mechanic software was used to create portions of this document. Sound-alike and misspelled words, as well as other wind tunnel mechanic errors may be contained in the documentation.
== END 2024-12-18 23:59 | disposition home or self-care (01) ==
LOC: WC 10:15
PROVIDERS: PCP Internal Medicine; Referring Provider Internal Medicine; Visit Provider Family Medicine
DX: I83.022 Varicose veins of left lower extremity with ulcer of calf (principal); L97.221 Non-pressure chronic ulcer of left calf limited to breakdown of skin; J96.11 Chronic respiratory failure with hypoxia; I11.0 Hypertensive heart disease with heart failure; I50.9 Heart failure, unspecified; I27.20 Pulmonary hypertension, unspecified; J44.9 Chronic obstructive pulmonary disease, unspecified; E66.01 Morbid (severe) obesity due to excess calories; Z68.42 Body mass index [BMI] 45.0-49.9, adult; E11.9 Type 2 diabetes mellitus without complications; G47.33 Obstructive sleep apnea (adult) (pediatric); L03.116 Cellulitis of left lower limb; R53.81 Other malaise; E03.9 Hypothyroidism, unspecified; I89.0 Lymphedema, not elsewhere classified; M15.9 Polyosteoarthritis, unspecified; I87.2 Venous insufficiency (chronic) (peripheral); R60.0 Localized edema; Z79.890 Hormone replacement therapy; Z79.899 Other long term (current) drug therapy; Z86.718 Personal history of other venous thrombosis and embolism
CPT/HCPCS: 29580; 99213; G0463

== ENCOUNTER 2025-01-12 10:45 | Outpatient (RCR) | payer MEDICARE, MEDICAID, SELFPAY ==
[2024-12-21 13:54] VITALS: BP 153/72; PULSE 95; RESP 18; TEMP 36.9
[2024-12-29 10:00] VITALS: BP 135/60; PULSE 66; RESP 18; TEMP 35.8
--- NOTE | 2024-12-29 15:08 | PN.PCM_ITS ---
History of Present Illness Date of Service: 12/29/24 Chief Complaint: ulcers b/l LE, bilateral lower extremity swelling History of Wound: Liz is a pleasant 74 yo woman that presents to the wound center for bilateral lower extremity edema and blisters and drainage of her bilateral lower extremities. She has had increased edema the last 2 weeks and her legs started seeping a few days ago. She has been wearing her tubigrip compression and had been using the lymphedema pumps until they started seeping fluid. She tries to elevate her legs when she is sitting but is not always consistent with doing this. She has been wrapping her leg with gauze when it is seeping but otherwise has not been doing any regular dressings. Patient has been treated at the wound center in the past for similar wounds, most recently October 2023. She has also been seen in the vascular surgery clinic where she was evaluated her for BLE DVT and venous insufficiency. 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 GSV ablation has been done to her right lower leg. She has received lymphedema pumps that were ordered during her last treatment course and has been using these. Last venous study was 03/2022. Last A1C 01/2023 was 6.4%. Last TSH - 01/2022 Patient's medical history is also significant for CHF, COPD, T2DM, lymphedema. She has a CPAP but has not been using this due to needing a new mask. She states that a prescription was to be sent and she never received the mask. Her current mask has a hole in it. Subjective Subjective Liz returns today for treatment of edema/ulcers to bilateral lower legs. She underwent venous ablation of left lower leg on 07/27/2024 but has not had resolution of drainage from the left lower leg since then with intermittent ulcer development. She has been using super absorbers and UNNA to both legs for the last week and has continued to have drainage from both lower legs. Left lateral LE still is draining again. She has been more compliant with water pill and use of lymphedema pumps this week but has had increased edema and has skin breakdown with beginnings of ulcerations bilateral lower legs. I suspect noncompliance with compression or another underlying issue such as exacerbation of heart failure or diuretic failure. Objective Data Objective Data Vital Signs: Vital Signs Temp Pulse Resp BP O2 Del Method FiO2 96.5 F L 66 18 135/60 H Room Air 91 12/29/24 10:00 12/29/24 10:00 12/29/24 10:00 12/29/24 10:00 12/29/24 10:00 12/29/24 10:00 Oxygen Delivery Method Room Air Physical Exam Const alert, oriented x3, no apparent distress and healthy appearing General Appearance: cooperative; Negative for combative or lethargic Orientation / Consciousness: awake Exam Limitations: no limitations Nutritional Appearance: obese HEENT normocephalic and head/scalp atraumatic Eyes EOMs intact bilaterally General Eye: normal appearance of both eyes Neck full ROM General: trachea midline Lymph Lymphatic: lymphedema severe and pitting Resp normal respiratory effort and no use of accessory muscles Effort and Inspection: Negative for labored, stridor or audible wheezes Cardio regular rate and regular rhythm Back/Spine Cervical Spine: cervical ROM normal Extremity full ROM, normal capillary refill and no clubbing, cyanosis or edema General Extremity: edema bilateral lower extremity Details: severe (with skin changes associated with lymphedema, thickened nodular appearance from mid allen to ankle) Skin General Skin Exam: erythema, venous stasis and dermatitis Wounds: wounds noted Wound Narrative: as in clinical panel, stable erythema and light serous drainage from bilateral lower legs with small ulcers on lateral aspects bilaterally, nodular appearance of skin associated with lymphedema Neuro oriented x3, CN's II-XII intact bilaterally, no focal motor deficits and no sensory deficits noted Psych thought process normal, cooperative, affect normal, speech normal and activity/motor behavior normal Debridement Note Debridement Note Wound debrided: left lower leg Laterality: Left Type of Debridement: Selective debridement Anesthesia Used: 4% Lidocaine Solution Depth: Down to and including healthy tissue and in the subcutaneous layer Instrument Used: - (gauze) Tissue Removed: yellow slough, devitalized tissue Severity: Fat Layer Exposed Amount of bleeding with debridement: None Bleeding Controlled with: Pressure Patient tolerated procedure: Patient tolerated procedure well Post-Debridement Measurements and Additional Note: Post-Debridement Measurements/Treatment WC - Nurse 1 - General Ulcer Assessment Start: 12/21/24 13:51 Freq: Status: Active Protocol: KELSEY Activity Type Activity Date Activity User E-sign Co-sign Detail Recorded Client Recorded Date Recorded By Document 12/21/24 13:54 KW [id number] 12/21/24 13:55 KW Edit Result 12/21/24 13:54 KW (1) [id number] 12/21/24 14:04 KW Document 12/29/24 10:00 KW [id number] 12/29/24 10:14 KW (1) Temperature (97.8 F-99.1 F) => 98.4 F Pulse Rate (60-100) => 95 Blood Pressure (90/60-120/80) => 153/72 H Blood Pressure Mean (mm Hg) => 99 12/21/24 12/29/24 13:54 10:00 - Today's Visit Information Type of service Nurse-only Follow-up Visit Visit (Physician/AUTOMOTIVE [employer] ) Arrival Mode Ambulatory, Ambulatory, Walker Walker Accompanied by Patient Identification Verified (Name & Yes Yes ) Vital Signs Temperature (97.8 F-99.1 F) 98.4 F 96.5 F L Temperature Source Temporal Temporal Pulse Rate (60-100) 95 66 Pulse Location Monitor Monitor Respiratory Rate (12-18) 18 18 Respiratory rate source Observation Observation Oxygen Delivery Method Room Air Room Air FIO2 % 91 Blood Pressure (90/60-120/80) 153/72 H 135/60 H Blood Pressure Mean (mm Hg) 99 85 Source Monitor Monitor Position Semi-Fowlers Semi-Fowlers Blood Pressure Location Left Arm Right Forearm History Since Last Visit- (Skip if this is Patient's initial visit) Have you changed medications since your No No last visit? Any new allergies or adverse reactions No No Had a fall/change in ADL's that may No No increase risk of falls Signs or symptoms of abuse and/or No No neglect since last visit Have you been in the hospital since your No No last visit? Has dressing in place as prescribed Yes Yes Has compression in place as prescribed Yes Yes Has offloadiing in place as prescribed N/A N/A Experienced any changes in pain level or No No management Left Footwear Regular Shoe Regular Shoe Right Footwear Regular Shoe Regular Shoe Pain Scale: 0-10 Numeric Is Patient Pain Free? Yes Yes - Nurse 1 - General Ulcer Measurement Start: 12/21/24 13:51 Freq: Status: Active Protocol: Activity Type Activity Date Activity User E-sign Co-sign Detail Recorded Client Recorded Date Recorded By Document 12/21/24 14:04 KW [id number] 12/21/24 14:06 KW Document 12/29/24 10:00 KW [id number] 12/29/24 10:14 KW 12/21/24 12/29/24 14:04 10:00 Wound Center Nurse 1 lle -Texture (Adrianna-wound Skin Appearance) Assessed -Moisture (Adrianna-wound Skin Appearance) Assessed -Color (Adrianna-wound Skin Appearance) Assessed, Erythema -Temperature (Adrianna-wound Skin No Abnormality Appearance) (Pt Warm) -Tenderness on Palpation (Adrianna-wound No Skin Appearance) -Ulcer Cleansing Soap and Water -Foul Odor after Cleansing No Right Calf (cm) 49 49.1 Right Ankle (cm) 28.5 29.1 Left Calf (cm) 54 Left Ankle (cm) 29.5 47.5 Left Foot (cm) 29.3 WC - Nurse 2 - General Ulcer CM Notes Start: 12/21/24 13:51 Freq: Status: Active Protocol: Activity Type Activity Date Activity User E-sign Co-sign Detail Recorded Client Recorded Date Recorded By Document 12/29/24 10:56 [id number] 12/29/24 11:09 12/29/24 10:56 Wound Center Nurse 2 lle -Time 11:04 -Correct Patient Yes -Correct Side, Site, Position Yes -Correct Procedure Yes -Procedure Performed Yes -Type of Procedure Debridement -Clinical Debridement Epidermis / Dermis -Tissue Removed Epidermis -Post Debridement (cm) - Length 11.0 -Post Debridement (cm) - Width 8.0 -Post Debridement (cm) - Depth 0.1 -Total Square (Post) (cm) 88.00 -Area of Debridement (cm) - Length 11.0 -Area of Debridement (cm) - Width 8.0 -Total Square (Area) (cm) 88.00 -Tunneling No -Undermining/Tunneling No -Circular Undermining No -Wound/Ulcer Outcome Not Healed -Ulcer Cleansing Rinsed/ Irrigated with Saline -Foul Odor after Cleansing No -Bioengineered Tissue No -Bleeding Controlled with NA -Treatment Response Procedure Tolerated Well -Offloading No -Debridement - Open, 1st 20sq cm No 7. RLE lateral -Time 11:08 -Correct Patient Yes -Correct Side, Site, Position Yes -Correct Procedure Yes -Procedure Performed Yes -Type of Procedure Debridement -Clinical Debridement Epidermis / Dermis -Tissue Removed Epidermis -Post Debridement (cm) - Length 5.5 -Post Debridement (cm) - Width 6.5 -Post Debridement (cm) - Depth 0.1 -Total Square (Post) (cm) 35.75 -Area of Debridement (cm) - Length 5.5 -Area of Debridement (cm) - Width 6.5 -Total Square (Area) (cm) 35.75 -Tunneling No -Undermining/Tunneling No -Circular Undermining No -Wound/Ulcer Outcome Not Healed -Ulcer Cleansing Rinsed/ Irrigated with Saline -Foul Odor after Cleansing No -Bioengineered Tissue No -Bleeding Controlled with NA -Treatment Response Procedure Tolerated Well -Offloading No -Debridement - Open, 1st 20sq cm Yes -Debridement, Open, ea addt'l 20sq cm 6 or part thereof Pain Scale: 0-10 Numeric Is Patient Pain Free? Yes WC - Nurse 3 - General Ulcer D/C NN Start: 12/21/24 13:51 Freq: Status: Active Protocol: Activity Type Activity Date Activity User E-sign Co-sign Detail Recorded Client Recorded Date Recorded By Document 12/21/24 13:55 KW [id number] 12/21/24 13:55 KW Edit Result 12/21/24 13:55 KW (1) [id number] 12/21/24 14:06 KW Document 12/29/24 11:16 BMF [id number] 12/29/24 11:18 BMF (1) lle - Primary Dressing Applied Optilok 5x5 1/2 => Optilok 6.5x10 - Optilok 5x5 1/2 1 => - Optilok 6.5x10 => 1 12/21/24 12/29/24 13:55 11:16 Wound Care Center Nurse 3 lle -Ulcer Cleansing Soap and Water Soap and Water -Primary Dressing Applied Optilok 6.5x10 Aquacel Extra, Optilok 5x5 1/2 -Other Dressing DRSGS PER RB RN -Primary Dressing Covered/Secured with Dry Gauze -Aquacel Extra 1 -Optilok 5x5 1/2 1 -Optilok 6.5x10 1 7. RLE lateral -Ulcer Cleansing Soap and Water -Primary Dressing Applied Aquacel Extra, Optilok 5x5 1/2 -Other Dressing DRSG PER RB RN -Aquacel Extra 0 -Optilok 5x5 1/2 1 BLE -Multi-Layered Wrap Application Unna Boot - Unna Boot - Bilateral Bilateral -Other APPLIED PER RB RN -Chito- Celine (Qty applied) 1 1 Treatment Response Procedure Tolerated Well Pain Scale: 0-10 Numeric Is Patient Pain Free? Yes Yes WC - Visit Discharge Discharge Condition Stable Stable Ambulatory Status Ambulatory, Ambulatory, Walker Walker Transportation Private Auto Private Auto Medication Reconcilliation completed & No provided to patient/care provider Clinical Summary of Care Provided Yes Additional Wound Wound debrided: right lateral lower leg Laterality: Right Type of Debridement: Selective debridement Anesthesia Used: 4% Lidocaine Solution Depth: Down to and including healthy tissue and in the subcutaneous layer Percentage of wound debrided: 100 Instrument Used: - (gauze) Tissue Removed: Yellow slough, devitalized tissue Severity: Fat Layer Exposed Amount of bleeding with debridement: None Patient tolerated procedure: Patient tolerated procedure well Assessment/Plan Assessment/Plan (1) Non-pressure chronic ulcer left lower leg, limited to breakdown skin: CODE(S): L97.921 - Non-pressure chronic ulcer of unspecified part of left lower leg limited to breakdown of skin (2) Venous insufficiency: CODE(S): I87.2 - Venous insufficiency (chronic) (peripheral) (3) Edema of both lower extremities: CODE(S): R60.0 - Localized edema (4) Lymphedema: CODE(S): I89.0 - Lymphedema, not elsewhere classified (5) Essential hypertension: CODE(S): I10 - Essential (primary) hypertension (6) Morbid obesity with BMI of 45.0-49.9, adult: CODE(S): E66.01 - Morbid (severe) obesity due to excess calories; Z68.42 - Body mass index [BMI] 45.0-49.9, adult (7) Debility: CODE(S): R53.81 - Other malaise (8) Osteoarthritis: CODE(S): M19.90 - Unspecified osteoarthritis, unspecified site QUALIFIERS: Osteoarthritis location: multiple joints Ost eoarthritis type: primary Qualified Code(s): M15.9 - Polyosteoarthritis, unspecified (9) COPD (chronic obstructive pulmonary disease): CODE(S): J44.9 - Chronic obstructive pulmonary disease, unspecified QUALIFIERS: COPD type: unspecified COPD Qualified Code(s): J44.9 - Chronic obstructive pulmonary disease, unspecified (10) Chronic hypoxemic respiratory failure: CODE(S): J96.11 - Chronic respiratory failure with hypoxia (11) Pulmonary hypertension: CODE(S): I27.20 - Pulmonary hypertension, unspecified (12) Hypothyroidism: CODE(S): E03.9 - Hypothyroidism, unspecified QUALIFIERS: Hypothyroidism type: unspecified Qualified Code(s): E03.9 - Hypothyroidism, unspecified (13) Type 2 diabetes mellitus: CODE(S): E11.9 - Type 2 diabetes mellitus without complications QUALIFIERS: Diabetes mellitus watcher automat long goods insulin use: without watcher automat long goods use Diabetes mellitus complication status: with other specified complication Qualified Code(s): E11.69 - Type 2 diabetes mellitus with other specified complication (14) DOLORES (obstructive sleep apnea): CODE(S): G47.33 - Obstructive sleep apnea (adult) (pediatric) (15) Cellulitis of left lower extremity: CODE(S): L03.116 - Cellulitis of left lower limb (16) Venous ulcer with fat layer exposed: CODE(S): I83.009 - Varicose veins of unspecified lower extremity with ulcer of unspecified site; L97.902 - Non-pressure chronic ulcer of unspecified part of unspecified lower leg with fat layer exposed (17) Venous stasis ulcer of right calf with fat layer exposed: CODE(S): I83.012 - Varicose veins of right lower extremity with ulcer of calf; L97.212 - Non-pressure chronic ulcer of right calf with fat layer exposed QUALIFIERS: Varicose vein presence: with varicose veins Qualified Code(s): I83.012 - Varicose veins of right lower extremity with ulcer of calf; L97.212 - Non-pressure chronic ulcer of right calf with fat layer exposed (18) Venous stasis ulcer of left calf with fat layer exposed: CODE(S): I83.022 - Varicose veins of left lower extremity with ulcer of calf; L97.222 - Non-pressure chronic ulcer of left calf with fat layer exposed QUALIFIERS: Varicose vein presence: with varicose veins Qualified Code(s): I83.022 - Varicose veins of left lower extremity with ulcer of calf; L97.222 - Non-pressure chronic ulcer of left calf with fat layer exposed PLAN: Plan Evaluation and debridement performed today in clinic as annotated above. At home wound-care instructions: Will apply UNNA boots to b/l LE and apply Aq uacel extra and superabsorber to left lateral leg and to right lateral leg. She was instructed to keep dressings clean and dry. Will have her use lymphedema pumps for 60 minutes 2-3 times daily. She has been noncompliant with pumps and was encouraged to increase frequency. Also, encouraged to take diuretic daily. Off-loading: The patient was instructed to avoid pressure and friction on the affected areas. Reposition every 2 hours at minimum. Avoid prolonged standing and/or dangling of legs. When seated, feet should be elevated at chest level. Frequent ambulation is encouraged. Diet: Patient encouraged to increase protein intake while taking caution to avoid high carbohydrate and/or sugar intake. Encouraged weight loss. Labs/cultures/imaging: Wound Culture of left allen ulcer showed pseudomonas and MRSA. Ciprofloxacin prescribed. Venous ultrasound showed incompetence of veins of left lower extremity and vascular performed an ablation on 07/27/2024. Culture showed E. faecalis, anaerobic bacteria and Pseudomonas advised to restart Ciprofloxacin and Flagyl was prescribed for Anaerobic bacteria. 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 She has been referred to infectious disease and they will see her 09/27/2024. We are going to try treating her with Bactrim DS until she sees Dr. Johnson. She is tolerating this. Completed Bactrim DS. Completed IV Gentamicin. Wound culture taken today to evaluate for cellulitis as left leg is more warm and erythematous. Repeat venous testing did not show thrombosis or failure of previous venous ablation. Encouraged her to get her CPAP mask to improve DOLORES and pulmonary HTN treatment compliance which is adding to her decompensated lymphedema. Follow-up: Will have her follow up in 1 week. Return sooner or report to the emergency room should symptoms worsen, or new symptoms arise. Note: [employer] speech recognition colorectal surgeon software was used to create portions of this document. Sound-alike and misspelled words, as well as other colorectal surgeon errors may be contained in the documentation.
[2025-01-05 10:58] VITALS: BP 129/66; PULSE 66; RESP 18; TEMP 35.7
--- NOTE | 2025-01-05 13:32 | PN.PCM_ITS ---
History of Present Illness Date of Service: 01/05/25 Chief Complaint: ulcers b/l LE, bilateral lower extremity swelling History of Wound: Liz is a pleasant 74 yo woman that presents to the wound center for bilateral lower extremity edema and blisters and drainage of her bilateral lower extremities. She has had increased edema the last 2 weeks and her legs started seeping a few days ago. She has been wearing her tubigrip compression and had been using the lymphedema pumps until they started seeping fluid. She tries to elevate her legs when she is sitting but is not always consistent with doing this. She has been wrapping her leg with gauze when it is seeping but otherwise has not been doing any regular dressings. Patient has been treated at the wound center in the past for similar wounds, most recently October 2023. She has also been seen in the vascular surgery clinic where she was evaluated her for BLE DVT and venous insufficiency. 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 GSV ablation has been done to her right lower leg. She has received lymphedema pumps that were ordered during her last treatment course and has been using these. Last venous study was 03/2022. Last A1C 01/2023 was 6.4%. Last TSH - 01/2022 Patient's medical history is also significant for CHF, COPD, T2DM, lymphedema. She has a CPAP but has not been using this due to needing a new mask. She states that a prescription was to be sent and she never received the mask. Her current mask has a hole in it. Subjective Subjective Liz returns today for treatment of edema/ulcers to bilateral lower legs. She underwent venous ablation of left lower leg on 07/27/2024 but has not had resolution of drainage from the left lower leg since then with intermittent ulcer development. She has been using super absorbers and UNNA to both legs for the last week and has continued to have drainage from both lower legs. Left lateral LE still is draining again. She has been more compliant with water pill and use of lymphedema pumps this week but has had increased edema and has skin breakdown with beginnings of ulcerations bilateral lower legs. I suspect noncompliance with compression or another underlying issue such as exacerbation of heart failure or diuretic failure. Objective Data Objective Data Vital Signs: Vital Signs Temp Pulse Resp BP O2 Del Method FiO2 96.2 F L 66 18 129/66 H Room Air 91 01/05/25 10:58 01/05/25 10:58 01/05/25 10:58 01/05/25 10:58 01/05/25 10:58 12/29/24 10:00 Oxygen Delivery Method Room Air Lab / Micro Data Micro: Microbiology 12/29/24 11:07 Wound - Leg, Left Gram Stain - Final 12/29/24 11:07 Wound - Leg, Left Wound Culture - Final Proteus mirabilis Citrobacter braakii Streptococcus group C Enterococcus faecalis Pseudomonas aeruginosa Klebsiella pneumoniae sp pneum 12/29/24 11:07 Wound - Leg, Left Anaerobic Culture - Preliminary Checking for anaerobes, further studies to follow. Physical Exam Const alert, oriented x3, no apparent distress and healthy appearing General Appearance: cooperative; Negative for combative or lethargic Orientation / Consciousness: awake Exam Limitations: no limitations Nutritional Appearance: obese HEENT normocephalic and head/scalp atraumatic Eyes EOMs intact bilaterally General Eye: normal appearance of both eyes Neck full ROM General: trachea midline Lymph Lymphatic: lymphedema severe and pitting Resp normal respiratory effort and no use of accessory muscles Effort and Inspection: Negative for labored, stridor or audible wheezes Cardio regular rate and regular rhythm Back/Spine Cervical Spine: cervical ROM normal Extremity full ROM, normal capillary refill and no clubbing, cyanosis or edema General Extremity: edema bilateral lower extremity Details: severe (with skin changes associated with lymphedema, thickened nodular appearance from mid allen to ankle) Skin General Skin Exam: erythema, venous stasis and dermatitis Wounds: wounds noted Wound Narrative: as in clinical panel, increased erythema and light serous drainage from bilateral lower legs with small ulcers on lateral aspects bilaterally, nodular appearance of skin associated with lymphedema Neuro oriented x3, CN's II-XII intact bilaterally, no focal motor deficits and no sensory deficits noted Psych thought process normal, cooperative, affect normal, speech normal and activity/motor behavior normal Debridement Note Debridement Note Wound debrided: left lateral LE Laterality: Left No debridement was completed: No debridement was completed today (no slough present) Post-Debridement Measurements and Additional Note: Post-Debridement Measurements/Treatment WC - Nurse 1 - General Ulcer Assessment Start: 12/21/24 13:51 Freq: Status: Active Protocol: KELSEY Activity Type Activity Date Activity User E-sign Co-sign Detail Recorded Client Recorded Date Recorded By Document 12/21/24 13:54 KW [id number] 12/21/24 13:55 KW Edit Result 12/21/24 13:54 KW (1) [id number] 12/21/24 14:04 KW Document 12/29/24 10:00 KW [id number] 12/29/24 10:14 KW Document 01/05/25 10:58 KW [id number] 01/05/25 11:15 KW (1) Temperature (97.8 F-99.1 F) => 98.4 F Pulse Rate (60-100) => 95 Blood Pressure (90/60-120/80) => 153/72 H Blood Pressure Mean (mm Hg) => 99 12/21/24 12/29/24 01/05/25 13:54 10:00 10:58 WC - Today's Visit Information Type of service Nurse-only Follow-up Visit Follow-up Visit Visit (Physician/DISCOVERY GUIDE (Physician/DISCOVERY GUIDE ) ) Arrival Mode Ambulatory, Ambulatory, Ambulatory, Walker Walker Walker Accompanied by Patient Identification Verified (Name & Yes Yes Yes ) Vital Signs Temperature (97.8 F-99.1 F) 98.4 F 96.5 F L 96.2 F L Temperature Source Temporal Temporal Temporal Pulse Rate (60-100) 95 66 66 Pulse Location Monitor Monitor Monitor Respiratory Rate (12-18) 18 18 18 Respiratory rate source Observation Observation Observation Oxygen Delivery Method Room Air Room Air Room Air FIO2 % 91 Blood Pressure (90/60-120/80) 153/72 H 135/60 H 129/66 H Blood Pressure Mean (mm Hg) 99 85 87 Source Monitor Monitor Monitor Position Semi-Fowlers Semi-Fowlers Semi-Fowlers Blood Pressure Location Left Arm Right Forearm Right Forearm History Since Last Visit- (Skip if this is Patient's initial visit) Have you changed medications since your No No No last visit? Any new allergies or adverse reactions No No No Had a fall/change in ADL's that may No No No increase risk of falls Signs or symptoms of abuse and/or No No No neglect since last visit Have you been in the hospital since your No No No last visit? Has dressing in place as prescribed Yes Yes Yes Has compression in place as prescribed Yes Yes Yes Has offloadiing in place as prescribed N/A N/A N/A Experienced any changes in pain level or No No No management Left Footwear Regular Shoe Regular Shoe Regular Shoe Right Footwear Regular Shoe Regular Shoe Regular Shoe Pain Scale: 0-10 Numeric Is Patient Pain Free? Yes Yes Yes WC - Nurse 1 - General Ulcer Measurement Start: 12/21/24 13:51 Freq: Status: Active Protocol: Activity Type Activity Date Activity User E-sign Co-sign Detail Recorded Client Recorded Date Recorded By Document 12/21/24 14:04 KW [id number] 12/21/24 14:06 KW Document 12/29/24 10:00 KW [id number] 12/29/24 10:14 KW Document 01/05/25 10:58 KW [id number] 01/05/25 11:15 KW 12/21/24 12/29/24 01/05/25 14:04 10:00 10:58 Wound Center Nurse 1 lle -Current Size (cm) - Length 0.1 -Current Size (cm) - Width 0.1 -Current Size (cm) - Depth 0 -Total Square Cm 0.01 -Date of Last Picture (Recall this 01/05/25 field) -Exudate Amt Large -Exudate Type Serosanguineous -Wound Margin Indistinct, Non -Visible -Granulation Amt Large (67-100%) -Granulation Quality [place] -Texture (Adrianna-wound Skin Appearance) Assessed Assessed -Moisture (Adrianna-wound Skin Appearance) Assessed Assessed -Color (Adrianna-wound Skin Appearance) Assessed, Assessed, Erythema Erythema -Temperature (Adrianna-wound Skin No Abnormality No Abnormality Appearance) (Pt Warm) (Pt Warm) -Tenderness on Palpation (Adrianna-wound No No Skin Appearance) -Ulcer Cleansing Soap and Water Soap and Water -Foul Odor after Cleansing No No -Anesthetic Used 5% Lidocaine Gel -Wound Comment(s) not measured during nurse 1 7. RLE lateral -Current Size (cm) - Length 0.1 -Current Size (cm) - Width 0.1 -Current Size (cm) - Depth 0 -Total Square Cm 0.01 -Date of Last Picture (Recall this 01/05/25 field) -Exudate Amt Large -Exudate Type Serosanguineous -Wound Margin Indistinct, Non -Visible -Granulation Amt Large (67-100%) -Granulation Quality [place] -Texture (Adrianna-wound Skin Appearance) Assessed -Moisture (Adrianna-wound Skin Appearance) Assessed -Color (Adrianna-wound Skin Appearance) Assessed, Erythema -Temperature (Adrianna-wound Skin No Abnormality Appearance) (Pt Warm) -Tenderness on Palpation (Adrianna-wound No Skin Appearance) -Ulcer Cleansing Soap and Water -Foul Odor after Cleansing No -Anesthetic Used 5% Lidocaine Gel -Wound Comment(s) not measured during nurse 1 Right Calf (cm) 49 49.1 50 Right Ankle (cm) 28.5 29.1 30.5 Left Calf (cm) 54 51 Left Ankle (cm) 29.5 47.5 30.5 Left Foot (cm) 29.3 WC - Nurse 2 - General Ulcer CM Notes Start: 12/21/24 13:51 Freq: Status: Active Protocol: Activity Type Activity Date Activity User E-sign Co-sign Detail Recorded Client Recorded Date Recorded By Document 12/29/24 10:56 [id number] 12/29/24 11:09 GM Document 01/05/25 12:02 DS [id number] 01/05/25 12:04 DS 12/29/24 01/05/25 10:56 12:02 Wound Center Nurse 2 lle -Time 11:04 12:02 -Correct Patient Yes Yes -Correct Side, Site, Position Yes Yes -Correct Procedure Yes -Procedure Performed Yes No -Type of Procedure Debridement -Clinical Debridement Epidermis / Dermis -Tissue Removed Epidermis -Post Debridement (cm) - Length 11.0 7.5 -Post Debridement (cm) - Width 8.0 5.5 -Post Debridement (cm) - Depth 0.1 0.1 -Total Square (Post) (cm) 88.00 41.25 -Area of Debridement (cm) - Length 11.0 7.5 -Area of Debridement (cm) - Width 8.0 5.5 -Total Square (Area) (cm) 88.00 41.25 -Tunneling No -Undermining/Tunneling No -Circular Undermining No -Wound/Ulcer Outcome Not Healed Not Healed -Ulcer Cleansing Rinsed/ Irrigated with Saline -Foul Odor after Cleansing No -Bioengineered Tissue No -Bleeding Controlled with NA -Treatment Response Procedure Tolerated Well -Offloading No -Debridement - Open, 1st 20sq cm No 7. RLE lateral -Time 11:08 12:03 -Correct Patient Yes Yes -Correct Side, Site, Position Yes Yes -Correct Procedure Yes -Procedure Performed Yes No -Type of Procedure Debridement -Clinical Debridement Epidermis / Dermis -Tissue Removed Epidermis -Post Debridement (cm) - Length 5.5 3.5 -Post Debridement (cm) - Width 6.5 2.0 -Post Debridement (cm) - Depth 0.1 0.1 -Total Square (Post) (cm) 35.75 7.00 -Area of Debridement (cm) - Length 5.5 3.5 -Area of Debridement (cm) - Width 6.5 2.0 -Total Square (Area) (cm) 35.75 7.00 -Tunneling No -Undermining/Tunneling No -Circular Undermining No -Wound/Ulcer Outcome Not Healed Not Healed -Ulcer Cleansing Rinsed/ Irrigated with Saline -Foul Odor after Cleansing No -Bioengineered Tissue No -Bleeding Controlled with NA -Treatment Response Procedure Tolerated Well -Offloading No -Debridement - Open, 1st 20sq cm Yes -Debridement, Open, ea addt'l 20sq cm 6 or part thereof Pain Scale: 0-10 Numeric Is Patient Pain Free? Yes Yes WC - Nurse 3 - General Ulcer D/C NN Start: 12/21/24 13:51 Freq: Status: Active Protocol: Activity Type Activity Date Activity User E-sign Co-sign Detail Recorded Client Recorded Date Recorded By Document 12/21/24 13:55 KW [id number] 12/21/24 13:55 KW Edit Result 12/21/24 13:55 KW (1) [id number] 12/21/24 14:06 KW Document 12/29/24 11:16 [facility] [id number] 12/29/24 11:18 [facility] Document 01/05/25 12:11 KW [id number] 01/05/25 12:12 KW (1) lle - Primary Dressing Applied Optilok 5x5 1/2 => Optilok 6.5x10 - Optilok 5x5 1/2 1 => - Optilok 6.5x10 => 1 12/21/24 12/29/24 01/05/25 13:55 11:16 12:11 Wound Care Center Nurse 3 lle -Ulcer Cleansing Soap and Water Soap and Water -Primary Dressing Applied Optilok 6.5x10 Aquacel Extra, Aquacel AG 4x4, Optilok 5x5 1/2 Optilok 6.5x10 -Other Dressing DRSGS PER RB RN -Primary Dressing Covered/Secured with Dry Gauze Dry Gauze & Roll Gauze -Aquacel Extra 1 -Aquacel AG 4x4 1 -Optilok 5x5 1/2 1 -Optilok 6.5x10 1 1 7. RLE lateral -Ulcer Cleansing Soap and Water -Primary Dressing Applied Aquacel Extra, Aquacel AG 4x4, Optilok 5x5 1/2 Optilok 5x5 1/2 -Other Dressing DRSG PER RB RN -Primary Dressing Covered/Secured with Dry Gauze & Roll Gauze, Secured with Tape -Aquacel Extra 0 -Aquacel AG 4x4 1 -Optilok 5x5 1/2 1 1 BLE -Multi-Layered Wrap Application Unna Boot - Unna Boot - Bilateral Bilateral -Compression Wrap Aldo Wrap -Other APPLIED PER RB 4 in and 6 in RN -Unna- Bilat (Qty applied) 1 1 Treatment Response Procedure Tolerated Well Pain Scale: 0-10 Numeric Is Patient Pain Free? Yes Yes Yes WC - Visit Discharge Discharge Condition Stable Stable Stable Ambulatory Status Ambulatory, Ambulatory, Ambulatory, Walker Walker Walker Transportation Private Auto Private Auto Private Auto Medication Reconcilliation completed & No No provided to patient/care provider Clinical Summary of Care Provided Yes Yes Additional Wound Wound debrided: right lateral LE Laterality: Right Operative Diagnosis: No debridemement- no slough present Assessment/Plan Assessment/Plan (1) Non-pressure chronic ulcer left lower leg, limited to breakdown skin: CODE(S): L97.921 - Non-pressure chronic ulcer of unspecified part of left lower leg limited to breakdown of skin (2) Venous insufficiency: CODE(S): I87.2 - Venous insufficiency (chronic) (peripheral) (3) Edema of both lower extremities: CODE(S): R60.0 - Localized edema (4) Lymphedema: CODE(S): I89.0 - Lymphedema, not elsewhere classified (5) Essential hypertension: CODE(S): I10 - Essential (primary) hypertension (6) Morbid obesity with BMI of 45.0-49.9, adult: CODE(S): E66.01 - Morbid (severe) obesity due to excess calories; Z68.42 - Body mass index [BMI] 45.0-49.9, adult (7) Debility: CODE(S): R53.81 - Other malaise (8) Osteoarthritis: CODE(S): M19.90 - Unspecified osteoarthritis, unspecified site QUALIFIERS: Osteoarthritis location: multiple joints Osteoarthritis type: primary Qualified Code(s): M15.9 - Polyosteoarthritis, unspecified (9) COPD (chronic obstructive pulmonary disease): CODE(S): J44.9 - Chronic obstructive pulmonary disease, unspecified QUALIFIERS: COPD type: unspecified COPD Qualified Code(s): J44.9 - Chronic obstructive pulmonary disease, unspecified (10) Chronic hypoxemic respiratory failure: CODE(S): J96.11 - Chronic respiratory failure with hypoxia (11) Pulmonary hypertension: CODE(S): I27.20 - Pulmonary hypertension, unspecified (12) Hypothyroidism: CODE(S): E03.9 - Hypothyroidism, unspecified QUALIFIERS: Hypothyroidism type: unspecified Qualified Code(s): E03.9 - Hypothyroidism, unspecified (13) Type 2 diabetes mellitus: CODE(S): E11.9 - Type 2 diabetes mellitus without complications QUALIFIERS: Diabetes mellitus complication status: with other specified complication Diabetes mellitus [facility] insulin use: without child nutrition manager use Qualified Code(s): E11.69 - Type 2 diabetes mellitus with other specified complication (14) DOLORES (obstructive sleep apnea): CODE(S): G47.33 - Obstructive sleep apnea (adult) (pediatric) (15) Cellulitis of left lower extremity: CODE(S): L03.116 - Cellulitis of left lower limb (16) Venous ulcer with fat layer exposed: CODE(S): I83.009 - Varicose veins of unspecified lower extremity with ulcer of unspecified site; L97.902 - Non-pressure chronic ulcer of unspecified part of unspecified lower leg with fat layer exposed (17) Venous stasis ulcer of right calf with fat layer exposed: CODE(S): I83.012 - Varicose veins of right lower extremity with ulcer of calf; L97.212 - Non-pressure chronic ulcer of right calf with fat layer exposed QUALIFIERS: Varicose vein presence: with varicose veins Qualified Code(s): I83.012 - Varicose veins of right lower extremity with ulcer of calf; L97.212 - Non-pressure chronic ulcer of right calf with fat layer exposed (18) Venous stasis ulcer of left calf with fat layer exposed: CODE(S): I83.022 - Varicose veins of left lower extremity with ulcer of calf; L97.222 - Non-pressure chronic ulcer of left calf with fat layer exposed QUALIFIERS: Varicose vein presence: with varicose veins Qualified Code(s): I83.022 - Varicose veins of left lower extremity with ulcer of calf; L97.222 - Non-pressure chronic ulcer of left calf with fat layer exposed PLAN: Plan Evaluation and debridement performed today in clinic as annotated above. At home wound-care instructions: Will apply Aquacel extra and superabsorber to left lateral leg and to right lateral leg and wrap with Kerlix and secure with ALDO bandage and change daily. She was instructed to keep dressings clean and dry. Will have her use lymphedema pumps for 60 minutes 2-3 times daily. She has been noncompliant with pumps and was encouraged to increase frequency. Also, encouraged to take diuretic daily. Off-loading: The patient was instructed to avoid pressure and friction on the affected areas. Reposition every 2 hours at minimum. Avoid prolonged standing and/or dangling of legs. When seated, feet should be elevated at chest level. Frequent ambulation is encouraged. Diet: Patient encouraged to increase protein intake while taking caution to avoid high carbohydrate and/or sugar intake. Encouraged weight loss. Labs/cultures/imaging: Wound Culture of left allen ulcer showed pseudomonas and MRSA. Ciprofloxacin prescribed. Venous ultrasound showed incompetence of veins of left lower extremity and vascular performed an ablation on 07/27/2024. Culture showed E. faecalis, anaerobic bacteria and Pseudomonas advised to restart Ciprofloxacin and Flagyl was prescribed for Anaerobic bacteria. 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 She has been referred to infectious disease and they will see her 09/27/2024. We are going to try treating her with Bactrim DS until she sees Dr. Johnson. She is tolerating this. Completed Bactrim DS. Completed IV Gentamicin. Wound culture taken was positive for multiple bacteria. Anaerobic culture is still pending. Will start her on Levofloxacin and Keflex based on sensitivities. Repeat venous testing did not show thrombosis or failure of previous venous ablation. Encouraged her to get her CPAP mask to improve DOLORES and pulmonary HTN treatment compliance which is adding to her decompensated lymphedema. Follow-up: Will have her follow up in 1 week. Return sooner or report to the emergency room should symptoms worsen, or new symptoms arise. Note: [employer] speech recognition supervisor mattress and boxsprings software was used to create portions of this document. Sound-alike and misspelled words, as well as other supervisor mattress and boxsprings errors may be contained in the documentation.
--- NOTE | 2025-01-08 09:06 | WC ---
PHOTO 01/05/25 BLE EDEMA
[2025-01-12 11:12] VITALS: BP 134/83; PULSE 84; RESP 18; TEMP 36.4
[2025-01-12 13:45] LABS: Hematocrit 42.2 % (37-47); Hemoglobin 13.1 g/dL (12.0-15.0); Immature Granulocytes Count 0.080 X10^3/uL (0.0-0.0); Mean Corp Hgb Conc 31.0 g/dL (32-36); Mean Corpuscular Volume 82.7 fL (81-99); Mean Platelet Vol. 9.7 fl (6.2-12.0); NRBC Flagged by Analyzer 0 % (0-5); Platelet Count 268 K/mm3 (150-450); RBC Distribution Width CV 14.9 % (11.6-14.6); RBC Distribution Width SD 44.9 fl (35.1-43.9); Red Blood Count 5.10 M/mm3 (4.2-5.4); White Blood Count 7.8 K/mm3 (4.4-11.0)
[2025-01-12 14:25] LABS: AST(SGOT) 17 U/L (<=31); Alanine Aminotransfer ALT/SGPT 12 U/L (<=34); Albumin, Serum 3.5 g/dL (3.4-4.8); Alkaline Phosphatase 102 U/L (35-104); Anion Gap 11 (5-15); BUN 15 mg/dL (4-19); BUN/Creat Ratio 17.0 RATIO (10-20); Calcium,Total 9.2 mg/dL (7.6-11.0); Carbon Dioxide 25.5 mmol/L (21.0-32.0); Chloride 104 mmol/L (98-108); Globulin 3.2 g/dL (2.2-4.2); Glucose 134 mg/dL (70-99); Potassium 4.1 mmol/L (3.3-5.1)
[2025-01-12 14:42] LABS: Ferritin 34 ng/mL (22-378); Free T3 2.4 pg/mL (2.18-3.98); Iron 35 ug/dL (50-170); Magnesium 1.9 mg/dL (1.5-2.2); Vitamin D,25 Hydroxy 13.8 ng/mL (30-100)
--- NOTE | 2025-01-12 15:24 | PCM.WC.PN ---
History of Present Illness Date of Service: 01/12/25 Chief Complaint: ulcers b/l LE, bilateral lower extremity swelling History of Wound: Liz is a pleasant 74 yo woman that presents to the wound center for bilateral lower extremity edema and blisters and drainage of her bilateral lower extremities. She has had increased edema the last 2 weeks and her legs started seeping a few days ago. She has been wearing her tubigrip compression and had been using the lymphedema pumps until they started seeping fluid. She tries to elevate her legs when she is sitting but is not always consistent with doing this. She has been wrapping her leg with gauze when it is seeping but otherwise has not been doing any regular dressings. Patient has been treated at the wound center in the past for similar wounds, most recently October 2023. She has also been seen in the vascular surgery clinic where she was evaluated her for BLE DVT and venous insufficiency. 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 GSV ablation has been done to her right lower leg. She has received lymphedema pumps that were ordered during her last treatment course and has been using these. Last venous study was 03/2022. Last A1C 01/2023 was 6.4%. Last TSH - 01/2022 Patient's medical history is also significant for CHF, COPD, T2DM, lymphedema. She has a CPAP but has not been using this due to needing a new mask. She states that a prescription was to be sent and she never received the mask. Her current mask has a hole in it. Subjective Subjective Liz returns today for treatment of edema/ulcers to bilateral lower legs. She underwent venous ablation of left lower leg on 07/27/2024 but has not had resolution of drainage from the left lower leg since then with intermittent ulcer development. She has had improvement since last week and is tolerating treatment with Levofloxacin and using super absorbers and roll gauze and ALDO bandages. I suspect noncompliance with compression or another underlying issue such as exacerbation of heart failure or diuretic failure. Objective Data Objective Data Vital Signs: Vital Signs Temp Pulse Resp BP O2 Del Method FiO2 97.5 F L 84 18 134/83 H Room Air 91 01/12/25 11:12 01/12/25 11:12 01/12/25 11:12 01/12/25 11:12 01/05/25 10:58 12/29/24 10:00 Oxygen Delivery Method Room Air Lab / Micro Data 01/12/25 12:32 01/12/25 12:32 Labs: Laboratory Results - last 24 hr 01/12/25 12:32: WBC 7.8, RBC 5.10, Hgb 13.1, Hct 42.2, MCV 82.7, MCH 25.7 L, MCHC 31.0 L, RDW Std Deviation 44.9 H, RDW Coeff of Mike 14.9 H, Plt Count 268, MPV 9.7, Immature Gran % (Auto) 1.000 H, Neut % (Auto) 70.5 H, Lymph % (Auto) 17.7 L, [place] % (Auto) 6.7, Eos % (Auto) 3.2, Baso % (Auto) 0.9, Absolute Neuts (auto) 5.5, Absolute Lymphs (auto) 1.38, Nucleated RBC % 0, Sodium 140, Potassium 4.1, Chloride 104, Carbon Dioxide 25.5, Anion Gap 11, BUN 15, Creatinine 0.88, Est GFR (MDRD) Non-Af 69, BUN/Creatinine Ratio 17.0, Glucose 134 H, Calcium 9.2, Magnesium 1.9, Iron 35 L, Ferritin 34, Total Bilirubin 0.39, AST 17, ALT 12, Alkaline Phosphatase 102, Total Protein 6.8, Albumin 3.5, Globulin 3.2, Albumin/Globulin Ratio 1.1, Vitamin D 25-Hydroxy 13.8 L, TSH 2.450, Free T4 1.30, Free T3 pg/dL 2.4 Micro: Microbiology 12/29/24 11:07 Wound - Leg, Left Gram Stain - Final 12/29/24 11:07 Wound - Leg, Left Wound Culture - Final Proteus mirabilis Citrobacter braakii Streptococcus group C Enterococcus faecalis Pseudomonas aeruginosa Klebsiella pneumoniae sp pneum 12/29/24 11:07 Wound - Leg, Left Anaerobic Culture - Final Actinotignum schaalii Physical Exam Const alert, oriented x3, no apparent distress and healthy appearing General Appearance: cooperative; Negative for combative or lethargic Orientation / Consciousness: awake Exam Limitations: no limitations Nutritional Appearance: obese HEENT normocephalic and head/scalp atraumatic Eyes EOMs intact bilaterally General Eye: normal appearance of both eyes Neck full ROM General: trachea midline Lymph Lymphatic: lymphedema severe and pitting Resp normal respiratory effort and no use of accessory muscles Effort and Inspection: Negative for labored, stridor or audible wheezes Cardio regular rate and regular rhythm Back/Spine Cervical Spine: cervical ROM normal Extremity full ROM, normal capillary refill and no clubbing, cyanosis or edema General Extremity: edema bilateral lower extremity Details: severe (with skin changes associated with lymphedema, thickened nodular appearance from mid allen to ankle) Skin General Skin Exam: erythema, venous stasis and dermatitis Wounds: wounds noted Wound Narrative: as in clinical panel, erythema of left lower leg and light serous drainage, right lateral leg epithelialized and no drainage appreciated, nodular appearance of skin associated with lymphedema bilaterally Neuro oriented x3, CN's II-XII intact bilaterally, no focal motor deficits and no sensory deficits noted Psych thought process normal, cooperative, affect normal, speech normal and activity/motor behavior normal Debridement Note Debridement Note Wound debrided: left lateral LE Laterality: Left No debridement was completed: No debridement was completed today (no slough present) Post-Debridement Measurements and Additional Note: Post-Debridement Measurements/Treatment - Nurse 1 - General Ulcer Assessment Start: 12/21/24 13:51 Freq: Status: Active Protocol: KELSEY Activity Type Activity Date Activity User E-sign Co-sign Detail Recorded Client Recorded Date Recorded By Document 12/21/24 13:54 KW [id number] 12/21/24 13:55 KW Edit Result 12/21/24 13:54 KW (1) [id number] 12/21/24 14:04 KW Document 12/29/24 10:00 KW [id number] 12/29/24 10:14 KW Document 01/05/25 10:58 KW [id number] 01/05/25 11:15 KW Document 01/12/25 11:12 RB [id number] 01/12/25 11:15 RB (1) Temperature (97.8 F-99.1 F) => 98.4 F Pulse Rate (60-100) => 95 Blood Pressure (90/60-120/80) => 153/72 H Blood Pressure Mean (mm Hg) => 99 12/21/24 12/29/24 01/05/25 13:54 10:00 10:58 - Today's Visit Information Type of service Nurse-only Follow-up Visit Follow-up Visit Visit (Physician/EMPLOYEE BENEFITS ATTORNEY (Physician/EMPLOYEE BENEFITS ATTORNEY ) ) Arrival Mode Ambulatory, Ambulatory, Ambulatory, Walker Walker Walker Transfer Assistance Accompanied by Patient Identification Verified (Name & Yes Yes Yes ) Patient Requires Transmission-Based Precautions Vital Signs Temperature (97.8 F-99.1 F) 98.4 F 96.5 F L 96.2 F L Temperature Source Temporal Temporal Temporal Pulse Rate (60-100) 95 66 66 Pulse Location Monitor Monitor Monitor Respiratory Rate (12-18) 18 18 18 Respiratory rate source Observation Observation Observation Oxygen Delivery Method Room Air Room Air Room Air FIO2 % 91 Blood Pressure (90/60-120/80) 153/72 H 135/60 H 129/66 H Blood Pressure Mean (mm Hg) 99 85 87 Source Monitor Monitor Monitor Position Semi-Fowlers Semi-Fowlers Semi-Fowlers Blood Pressure Location Left Arm Right Forearm Right Forearm History Since Last Visit- (Skip if this is Patient's initial visit) Have you changed medications since your No No No last visit? Any new allergies or adverse reactions No No No Had a fall/change in ADL's that may No No No increase risk of falls Signs or symptoms of abuse and/or No No No neglect since last visit Have you been in the hospital since your No No No last visit? Has dressing in place as prescribed Yes Yes Yes Has compression in place as prescribed Yes Yes Yes Has offloadiing in place as prescribed N/A N/A N/A Experienced any changes in pain level or No No No management Left Footwear Regular Shoe Regular Shoe Regular Shoe Right Footwear Regular Shoe Regular Shoe Regular Shoe Pain Scale: 0-10 Numeric Is Patient Pain Free? Yes Yes Yes 01/12/25 11:12 - Today's Visit Information Type of service Follow-up Visit (Physician/EMPLOYEE BENEFITS ATTORNEY ) Arrival Mode Wheelchair Transfer Assistance Manual Accompanied by Patient Identification Verified (Name & Yes ) Patient Requires Transmission-Based No Precautions Vital Signs Temperature (97.8 F-99.1 F) 97.5 F L Temperature Source Temporal Pulse Rate (60-100) 84 Pulse Location Monitor Respiratory Rate (12-18) 18 Respiratory rate source Observation Oxygen Delivery Method FIO2 % Blood Pressure (90/60-120/80) 134/83 H Blood Pressure Mean (mm Hg) 100 Source Monitor Position Sitting Blood Pressure Location Left Arm History Since Last Visit- (Skip if this is Patient's initial visit) Have you changed medications since your No last visit? Any new allergies or adverse reactions No Had a fall/change in ADL's that may No increase risk of falls Signs or symptoms of abuse and/or No neglect since last visit Have you been in the hospital since your No last visit? Has dressing in place as prescribed Yes Has compression in place as prescribed Yes Has offloadiing in place as prescribed N/A Experienced any changes in pain level or No management Left Footwear Regular Shoe Right Footwear Regular Shoe Pain Scale: 0-10 Numeric Is Patient Pain Free? Yes WC - Nurse 1 - General Ulcer Measurement Start: 12/21/24 13:51 Freq: Status: Active Protocol: Activity Type Activity Date Activity User E-sign Co-sign Detail Recorded Client Recorded Date Recorded By Document 12/21/24 14:04 KW [id number] 12/21/24 14:06 KW Document 12/29/24 10:00 KW [id number] 12/29/24 10:14 KW Document 01/05/25 10:58 KW [id number] 01/05/25 11:15 KW Document 01/12/25 11:12 RB [id number] 01/12/25 11:15 RB 12/21/24 12/29/24 01/05/25 14:04 10:00 10:58 Wound Center Nurse 1 12. lle -Combined with other wound -Current Size (cm) - Length 0.1 -Current Size (cm) - Width 0.1 -Current Size (cm) - Depth 0 -Total Square Cm 0.01 -Date of Last Picture (Recall this 01/05/25 field) -Photo Taken -Tunneling -Undermining/Tunneling -Circular Undermining -Exudate Amt Large -Exudate Type Serosanguineous -Wound Margin Indistinct, Non -Visible -Granulation Amt Large (67-100%) -Granulation Quality [place] -Slough/Fibrin -Necrosis Amt -Necrotic Tissue Type -Structure Exposed -Texture (Adrianna-wound Skin Appearance) Assessed Assessed -Moisture (Adrianna-wound Skin Appearance) Assessed Assessed -Color (Adrianna-wound Skin Appearance) Assessed, Assessed, Erythema Erythema -Temperature (Adrianna-wound Skin No Abnormality No Abnormality Appearance) (Pt Warm) (Pt Warm) -Tenderness on Palpation (Adrianna-wound No No Skin Appearance) -Ulcer Cleansing Soap and Water Soap and Water -Foul Odor after Cleansing No No -Anesthetic Used 5% Lidocaine Gel -Wound Comment(s) not measured during nurse 1 7. RLE lateral -Combined with other wound -Current Size (cm) - Length 0.1 -Current Size (cm) - Width 0.1 -Current Size (cm) - Depth 0 -Total Square Cm 0.01 -Date of Last Picture (Recall this 01/05/25 field) -Photo Taken -Tunneling -Undermining/Tunneling -Circular Undermining -Exudate Amt Large -Exudate Type Serosanguineous -Wound Margin Indistinct, Non -Visible -Granulation Amt Large (67-100%) -Granulation Quality [place] -Slough/Fibrin -Necrosis Amt -Necrotic Tissue Type -Structure Exposed -Texture (Adrianna-wound Skin Appearance) Assessed -Moisture (Adrianna-wound Skin Appearance) Assessed -Color (Adrianna-wound Skin Appearance) Assessed, Erythema -Temperature (Adrianna-wound Skin No Abnormality Appearance) (Pt Warm) -Tenderness on Palpation (Adrianna-wound No Skin Appearance) -Ulcer Cleansing Soap and Water -Foul Odor after Cleansing No -Anesthetic Used 5% Lidocaine Gel -Wound Comment(s) not measured during nurse 1 Lower Limb Edema Present Right Calf (cm) 49 49.1 50 Right Ankle (cm) 28.5 29.1 30.5 Left Calf (cm) 54 51 Left Ankle (cm) 29.5 47.5 30.5 Left Foot (cm) 29.3 01/12/25 11:12 Wound Center Nurse 1 12. lle -Combined with other wound No -Current Size (cm) - Length 0.1 -Current Size (cm) - Width 0.1 -Current Size (cm) - Depth 0.1 -Total Square Cm 0.01 -Date of Last Picture (Recall this field) -Photo Taken Yes -Tunneling No -Undermining/Tunneling No -Circular Undermining No -Exudate Amt Medium -Exudate Type Serosanguineous -Wound Margin -Granulation Amt Large (67-100%) -Granulation Quality [place] -Slough/Fibrin Yes -Necrosis Amt Small (1-33%) -Necrotic Tissue Type Adherent Slough -Structure Exposed N/A -Texture (Adrianna-wound Skin Appearance) Assessed, Excoriation -Moisture (Adrianna-wound Skin Appearance) Assessed -Color (Adrianna-wound Skin Appearance) Assessed -Temperature (Adrianna-wound Skin No Abnormality Appearance) (Pt Warm) -Tenderness on Palpation (Adrianna-wound No Skin Appearance) -Ulcer Cleansing Wound Cleanser -Foul Odor after Cleansing No -Anesthetic Used 5% Lidocaine Gel -Wound Comment(s) 7. RLE lateral -Combined with other wound No -Current Size (cm) - Length 0.1 -Current Size (cm) - Width 0.1 -Current Size (cm) - Depth 0.1 -Total Square Cm 0.01 -Date of Last Picture (Recall this field) -Photo Taken Yes -Tunneling No -Undermining/Tunneling No -Circular Undermining No -Exudate Amt Large -Exudate Type Serosanguineous -Wound Margin Distinct, Outline Attached -Granulation Amt Medium (34-66%) -Granulation Quality [place] -Slough/Fibrin Yes -Necrosis Amt Medium (34-66%) -Necrotic Tissue Type Adherent Slough -Structure Exposed N/A -Texture (Adrianna-wound Skin Appearance) Assessed, Excoriation -Moisture (Adrianna-wound Skin Appearance) Assessed -Color (Adrianna-wound Skin Appearance) Assessed -Temperature (Adrianna-wound Skin No Abnormality Appearance) (Pt Warm) -Tenderness on Palpation (Adrianna-wound No Skin Appearance) -Ulcer Cleansing Wound Cleanser -Foul Odor after Cleansing No -Anesthetic Used 5% Lidocaine Gel -Wound Comment(s) Lower Limb Edema Present Yes Right Calf (cm) 62.5 Right Ankle (cm) 30.2 Left Calf (cm) 59 Left Ankle (cm) 31.4 Left Foot (cm) WC - Nurse 2 - General Ulcer CM Notes Start: 12/21/24 13:51 Freq: Status: Active Protocol: Activity Type Activity Date Activity User E-sign Co-sign Detail Recorded Client Recorded Date Recorded By Document 12/29/24 10:56 GM [id number] 12/29/24 11:09 GM Document 01/05/25 12:02 DS [id number] 01/05/25 12:04 DS Document 01/12/25 11:24 DS [id number] 01/12/25 11:29 DS 12/29/24 01/05/25 01/12/25 10:56 12:02 11:24 Wound Center Nurse 2 12. lle -Time 11:04 12:02 11:24 -Correct Patient Yes Yes Yes -Correct Side, Site, Position Yes Yes Yes -Correct Procedure Yes -Procedure Performed Yes No No -Type of Procedure Debridement -Clinical Debridement Epidermis / Dermis -Tissue Removed Epidermis -Post Debridement (cm) - Length 11.0 7.5 -Post Debridement (cm) - Width 8.0 5.5 -Post Debridement (cm) - Depth 0.1 0.1 -Total Square (Post) (cm) 88.00 41.25 -Area of Debridement (cm) - Length 11.0 7.5 -Area of Debridement (cm) - Width 8.0 5.5 -Total Square (Area) (cm) 88.00 41.25 -Tunneling No -Undermining/Tunneling No -Circular Undermining No -Wound/Ulcer Outcome Not Healed Not Healed Not Healed -Ulcer Cleansing Rinsed/ Irrigated with Saline -Foul Odor after Cleansing No -Bioengineered Tissue No -Bleeding Controlled with NA -Treatment Response Procedure Tolerated Well -Offloading No -Debridement - Open, 1st 20sq cm No 7. RLE lateral -Time 11: 12:03 11:24 -Correct Patient Yes Yes Yes -Correct Side, Site, Position Yes Yes Yes -Correct Procedure Yes -Procedure Performed Yes No No -Type of Procedure Debridement -Clinical Debridement Epidermis / Dermis -Tissue Removed Epidermis -Post Debridement (cm) - Length 5.5 3.5 -Post Debridement (cm) - Width 6.5 2.0 -Post Debridement (cm) - Depth 0.1 0.1 -Total Square (Post) (cm) 35.75 7.00 -Area of Debridement (cm) - Length 5.5 3.5 -Area of Debridement (cm) - Width 6.5 2.0 -Total Square (Area) (cm) 35.75 7.00 -Tunneling No -Undermining/Tunneling No -Circular Undermining No -Wound/Ulcer Outcome Not Healed Not Healed Not Healed -Ulcer Cleansing Rinsed/ Irrigated with Saline -Foul Odor after Cleansing No -Bioengineered Tissue No -Bleeding Controlled with NA -Treatment Response Procedure Tolerated Well -Offloading No -Debridement - Open, 1st 20sq cm Yes -Debridement, Open, ea addt'l 20sq cm 6 or part thereof Pain Scale: 0-10 Numeric Is Patient Pain Free? Yes Yes Yes WC - Nurse 3 - General Ulcer D/C NN Start: 12/21/24 13:51 Freq: Status: Active Protocol: Activity Type Activity Date Activity User E-sign Co-sign Detail Recorded Client Recorded Date Recorded By Document 12/21/24 13:55 KW [id number] 12/21/24 13:55 KW Edit Result 12/21/24 13:55 KW (1) [id number] 12/21/24 14:06 KW Document 12/29/24 11:16 BMF [id number] 12/29/24 11:18 BMF Document 01/05/25 12:11 KW [id number] 01/05/25 12:12 KW Document 01/12/25 12:15 RB [id number] 01/12/25 12:18 RB (1) 12. lle - Primary Dressing Applied Optilok 5x5 1/2 => Optilok 6.5x10 - Optilok 5x5 1/2 1 => - Optilok 6.5x10 => 1 12/21/24 12/29/24 01/05/25 13:55 11:16 12:11 Wound Care Center Nurse 3 12. lle -Ulcer Cleansing Soap and Water Soap and Water -Primary Dressing Applied Optilok 6.5x10 Aquacel Extra, Aquacel AG 4x4, Optilok 5x5 1/2 Optilok 6.5x10 -Other Dressing DRSGS PER RB RN -Primary Dressing Covered/Secured with Dry Gauze Dry Gauze & Roll Gauze -Aquacel Extra 1 -Aquacel AG 4x4 1 -Optilok 5x5 1/2 1 -Optilok 6.5x10 1 1 7. RLE lateral -Ulcer Cleansing Soap and Water -Primary Dressing Applied Aquacel Extra, Aquacel AG 4x4, Optilok 5x5 1/2 Optilok 5x5 1/2 -Other Dressing DRSG PER RB RN -Primary Dressing Covered/Secured with Dry Gauze & Roll Gauze, Secured with Tape -Other Covering -Aquacel Extra 0 -Aquacel AG 4x4 1 -Optilok 5x5 1/2 1 1 BLE -Multi-Layered Wrap Application Unna Boot - Unna Boot - Bilateral Bilateral -Compression Wrap Aldo Wrap -Other APPLIED PER RB 4 in and 6 in RN -Unna- Bilat (Qty applied) 1 1 Treatment Response Procedure Tolerated Well Pain Scale: 0-10 Numeric Is Patient Pain Free? Yes Yes Yes WC - Visit Discharge Discharge Condition Stable Stable Stable Ambulatory Status Ambulatory, Ambulatory, Ambulatory, Walker Walker Walker Transportation Private Auto Private Auto Private Auto Accompanied by Medication Reconcilliation completed & No No provided to patient/care provider Clinical Summary of Care Provided Yes Yes 01/12/25 12:15 Wound Care Center Nurse 3 12. lle -Ulcer Cleansing -Primary Dressing Applied Aquacel AG 4x4 -Other Dressing ABD -Primary Dressing Covered/Secured with Dry Gauze & Roll Gauze, Secured with Tape -Aquacel Extra -Aquacel AG 4x4 1 -Optilok 5x5 1/2 -Optilok 6.5x10 7. RLE lateral -Ulcer Cleansing Rinsed/ Irrigated with Saline -Primary Dressing Applied -Other Dressing AQUACEL AG/ ABD -Primary Dressing Covered/Secured with Dry Gauze & Roll Gauze, Other -Other Covering abd pad -Aquacel Extra -Aquacel AG 4x4 -Optilok 5x5 1/2 BLE -Multi-Layered Wrap Application -Compression Wrap Aldo Wrap -Other -Unna- Bilat (Qty applied) Treatment Response Procedure Tolerated Well Pain Scale: 0-10 Numeric Is Patient Pain Free? Yes WC - Visit Discharge Discharge Condition Stable Ambulatory Status Wheelchair Transportation Private Auto Accompanied by Medication Reconcilliation completed & No provided to patient/care provider Clinical Summary of Care Provided Yes Assessment/Plan Assessment/Plan (1) Non-pressure chronic ulcer left lower leg, limited to breakdown skin: CODE(S): L97.921 - Non-pressure chronic ulcer of unspecified part of left lower leg limited to breakdown of skin (2) Venous insufficiency: CODE(S): I87.2 - Venous insufficiency (chronic) (peripheral) (3) Edema of both lower extremities: CODE(S): R60.0 - Localized edema (4) Lymphedema: CODE(S): I89.0 - Lymphedema, not elsewhere classified (5) Essential hypertension: CODE(S): I10 - Essential (primary) hypertension (6) Morbid obesity with BMI of 45.0-49.9, adult: CODE(S): E66.01 - Morbid (severe) obesity due to excess calories; Z68.42 - Body mass index [BMI] 45.0-49.9, adult (7) Debility: CODE(S): R53.81 - Other malaise (8) Osteoarthritis: CODE(S): M19.90 - Unspecified osteoarthritis, unspecified site QUALIFIERS: Osteoarthritis location: multiple joints Osteoarthritis type: primary Qualified Code(s): M15.9 - Polyosteoarthritis, unspecified (9) COPD (chronic obstructive pulmonary disease): CODE(S): J44.9 - Chronic obstructive pulmonary disease, unspecified QUALIFIERS: COPD type: unspecified COPD Qualified Code(s): J44.9 - Chronic obstructive pulmonary disease, unspecified (10) Chronic hypoxemic respiratory failure: CODE(S): J96.11 - Chronic respiratory failure with hypoxia (11) Pulmonary hypertension: CODE(S): I27.20 - Pulmonary hypertension, unspecified (12) Hypothyroidism: CODE(S): E03.9 - Hypothyroidism, unspecified QUALIFIERS: Hypothyroidism type: unspecified Qualified Code(s): E03.9 - Hypothyroidism, unspecified (13) Type 2 diabetes mellitus: CODE(S): E11.9 - Type 2 diabetes mellitus without complications QUALIFIERS: Diabetes mellitus [facility] insulin use: without director long term care use Diabetes mellitus complication status: with other specified complication Qualified Code(s): E11.69 - Type 2 diabetes mellitus with other specified complication (14) DOLORES (obstructive sleep apnea): CODE(S): G47.33 - Obstructive sleep apnea (adult) (pediatric) (15) Cellulitis of left lower extremity: CODE(S): L03.116 - Cellulitis of left lower limb (16) Venous ulcer with fat layer exposed: CODE(S): I83.009 - Varicose veins of unspecified lower extremity with ulcer of unspecified site; L97.902 - Non-pressure chronic ulcer of unspecified part of unspecified lower leg with fat layer exposed (17) Venous stasis ulcer of right calf with fat layer exposed: CODE(S): I83.012 - Varicose veins of right lower extremity with ulcer of calf; L97.212 - Non-pressure chronic ulcer of right calf with fat layer exposed QUALIFIERS: Varicose vein presence: with varicose veins Qualified Code(s): I83.012 - Varicose veins of right lower extremity with ulcer of calf; L97.212 - Non-pressure chronic ulcer of right calf with fat layer exposed (18) Venous stasis ulcer of left calf with fat layer exposed: CODE(S): I83.022 - Varicose veins of left lower extremity with ulcer of calf; L97.222 - Non-pressure chronic ulcer of left calf with fat layer exposed QUALIFIERS: Varicose vein presence: with varicose veins Qualified Code(s): I83.022 - Varicose veins of left lower extremity with ulcer of calf; L97.222 - Non-pressure chronic ulcer of left calf with fat layer exposed PLAN: Plan Evaluation and debridement performed today in clinic as annotated above. At home wound-care instructions: Will apply Aquacel extra and superabsorber to left lateral leg and to right lateral leg and wrap with Kerlix and secure with ALDO bandage and change daily. She was instructed to keep dressings clean and dry. Will have her use lymphedema pumps for 60 minutes 2-3 times daily. She has been noncompliant with pumps and was encouraged to increase frequency. Also, encouraged to take diuretic daily. Off-loading: The patient was instructed to avoid pressure and friction on the affected areas. Reposition every 2 hours at minimum. Avoid prolonged standing and/or dangling of legs. When seated, feet should be elevated at chest level. Frequent ambulation is encouraged. Diet: Patient encouraged to increase protein intake while taking caution to avoid high carbohydrate and/or sugar intake. Encouraged weight loss. Labs/cultures/imaging: Wound Culture of left allen ulcer showed pseudomonas and MRSA. Ciprofloxacin prescribed. Venous ultrasound showed incompetence of veins of left lower extremity and vascular performed an ablation on 07/27/2024. Culture showed E. faecalis, anaerobic bacteria and Pseudomonas advised to restart Ciprofloxacin and Flagyl was prescribed for Anaerobic bacteria. 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 She has been referred to infectious disease and they will see her 09/27/2024. We are going to try treating her with Bactrim DS until she sees Dr. Johnson. She is tolerating this. Completed Bactrim DS. Completed IV Gentamicin. Wound culture taken was positive for multiple bacteria. Anaerobic culture is still pending. She will complete treatment on Levofloxacin and Keflex based on sensitivities. Repeat venous testing did not show thrombosis or failure of previous venous ablation. Encouraged her to get her CPAP mask to improve DOLORES and pulmonary HTN treatment compliance which is adding to her decompensated lymphedema. Follow-up: Will have her follow up in 1 week. Return sooner or report to the emergency room should symptoms worsen, or new symptoms arise. Note: [employer] speech recognition director inbound sales software was used to create portions of this document. Sound-alike and misspelled words, as well as other director inbound sales errors may be contained in the documentation.
--- NOTE | 2025-01-16 09:49 | WC ---
PHOTO-LLE 01/12/25
--- NOTE | 2025-01-16 09:51 | WC ---
PHOTO-RLE 01/12/25
== END 2025-01-18 23:59 | disposition home or self-care (01) ==
LOC: WC 10:45
PROVIDERS: PCP Internal Medicine; Referring Provider Internal Medicine; Visit Provider Family Medicine
DX: I83.012 Varicose veins of right lower extremity with ulcer of calf (principal); L97.212 Non-pressure chronic ulcer of right calf with fat layer exposed; L97.222 Non-pressure chronic ulcer of left calf with fat layer exposed; I83.022 Varicose veins of left lower extremity with ulcer of calf; J96.11 Chronic respiratory failure with hypoxia; I11.0 Hypertensive heart disease with heart failure; I50.9 Heart failure, unspecified; I27.20 Pulmonary hypertension, unspecified; J44.9 Chronic obstructive pulmonary disease, unspecified; E66.01 Morbid (severe) obesity due to excess calories; E11.9 Type 2 diabetes mellitus without complications; E03.9 Hypothyroidism, unspecified; G47.33 Obstructive sleep apnea (adult) (pediatric); I87.2 Venous insufficiency (chronic) (peripheral); M15.9 Polyosteoarthritis, unspecified; I89.0 Lymphedema, not elsewhere classified; R42 Dizziness and giddiness; L03.116 Cellulitis of left lower limb; D64.9 Anemia, unspecified; R53.83 Other fatigue; R53.81 Other malaise; Z86.718 Personal history of other venous thrombosis and embolism; Z79.890 Hormone replacement therapy; Z79.899 Other long term (current) drug therapy
CPT/HCPCS: 29580; 36415; 80053; 82306; 82728; 83540; 83735; 84439; 84443; 84481; 85025; 87070; 87075; 87077; 87186; 87205; 97597; 97598; 99213; G0463

== ENCOUNTER 2025-01-19 10:13 | Outpatient (RCR) | payer MEDICARE, MEDICAID, SELFPAY ==
[2025-01-19 10:49] VITALS: BP 166/82; PULSE 83; RESP 18; TEMP 36.6
--- NOTE | 2025-01-19 14:48 | PCM.WC.PN ---
History of Present Illness Date of Service: 01/19/25 Chief Complaint: ulcers b/l LE, bilateral lower extremity swelling History of Wound: Liz is a pleasant 74 yo woman that presents to the wound center for bilateral lower extremity edema and blisters and drainage of her bilateral lower extremities. She has had increased edema the last 2 weeks and her legs started seeping a few days ago. She has been wearing her tubigrip compression and had been using the lymphedema pumps until they started seeping fluid. She tries to elevate her legs when she is sitting but is not always consistent with doing this. She has been wrapping her leg with gauze when it is seeping but otherwise has not been doing any regular dressings. Patient has been treated at the wound center in the past for similar wounds, most recently October 2023. She has also been seen in the vascular surgery clinic where she was evaluated her for BLE DVT and venous insufficiency. 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 GSV ablation has been done to her right lower leg. She has received lymphedema pumps that were ordered during her last treatment course and has been using these. Last venous study was 03/2022. Last A1C 01/2023 was 6.4%. Last TSH - 01/2022 Patient's medical history is also significant for CHF, COPD, T2DM, lymphedema. She has a CPAP but has not been using this due to needing a new mask. She states that a prescription was to be sent and she never received the mask. Her current mask has a hole in it. Subjective Subjective Liz returns today for treatment of edema/ulcers to bilateral lower legs. She underwent venous ablation of left lower leg on 07/27/2024 but has not had resolution of drainage from the left lower leg since then with intermittent ulcer development. She has had improvement. She is still having some drainage but much less than pervious and no ulcers. Objective Data Objective Data Vital Signs: Vital Signs Temp Pulse Resp BP 98 F 83 18 166/82 H 01/19/25 10:49 01/19/25 10:49 01/19/25 10:49 01/19/25 10:49 Physical Exam Const alert, oriented x3, no apparent distress and healthy appearing General Appearance: cooperative; Negative for combative or lethargic Orientation / Consciousness: awake Exam Limitations: no limitations Nutritional Appearance: obese HEENT normocephalic and head/scalp atraumatic Eyes EOMs intact bilaterally General Eye: normal appearance of both eyes Neck full ROM General: trachea midline Lymph Lymphatic: lymphedema severe and pitting Resp normal respiratory effort and no use of accessory muscles Effort and Inspection: Negative for labored, stridor or audible wheezes Cardio regular rate and regular rhythm Back/Spine Cervical Spine: cervical ROM normal Extremity full ROM, normal capillary refill and no clubbing, cyanosis or edema General Extremity: edema bilateral lower extremity Details: severe (with skin changes associated with lymphedema, thickened nodular appearance from mid allen to ankle) Skin General Skin Exam: erythema, venous stasis and dermatitis Wounds: wounds noted Wound Narrative: as in clinical panel, erythema of left lower leg and light serous drainage, right lateral leg epithelialized and no drainage appreciated, nodular appearance of skin associated with lymphedema bilaterally Neuro oriented x3, CN's II-XII intact bilaterally, no focal motor deficits and no sensory deficits noted Psych thought process normal, cooperative, affect normal, speech normal and activity/motor behavior normal Debridement Note Debridement Note Wound debrided: left lateral LE Laterality: Left No debridement was completed: No debridement was completed today (no slough present) Post-Debridement Measurements and Additional Note: Post-Debridement Measurements/Treatment WC - Nurse 1 - General Ulcer Assessment Start: 12/21/24 13:51 Freq: Status: Active Protocol: KELSEY Activity Type Activity Date Activity User E-sign Co-sign Detail Recorded Client Recorded Date Recorded By Document 12/21/24 13:54 KW [id number] 12/21/24 13:55 KW Edit Result 12/21/24 13:54 KW (1) [id number] 12/21/24 14:04 KW Document 12/29/24 10:00 KW [id number] 12/29/24 10:14 KW Document 01/05/25 10:58 KW [id number] 01/05/25 11:15 KW Document 01/12/25 11:12 RB [id number] 01/12/25 11:15 RB (1) Temperature (97.8 F-99.1 F) => 98.4 F Pulse Rate (60-100) => 95 Blood Pressure (90/60-120/80) => 153/72 H Blood Pressure Mean (mm Hg) => 99 12/21/24 12/29/24 01/05/25 13:54 10:00 10:58 - Today's Visit Information Type of service Nurse-only Follow-up Visit Follow-up Visit Visit (Physician/PERCUSSION INSTRUMENT TUNER (Physician/PERCUSSION INSTRUMENT TUNER ) ) Arrival Mode Ambulatory, Ambulatory, Ambulatory, Walker Walker Walker Transfer Assistance Accompanied by Patient Identification Verified (Name & Yes Yes Yes ) Patient Requires Transmission-Based Precautions Vital Signs Temperature (97.8 F-99.1 F) 98.4 F 96.5 F L 96.2 F L Temperature Source Temporal Temporal Temporal Pulse Rate (60-100) 95 66 66 Pulse Location Monitor Monitor Monitor Respiratory Rate (12-18) 18 18 18 Respiratory rate source Observation Observation Observation Oxygen Delivery Method Room Air Room Air Room Air FIO2 % 91 Blood Pressure (90/60-120/80) 153/72 H 135/60 H 129/66 H Blood Pressure Mean (mm Hg) 99 85 87 Source Monitor Monitor Monitor Position Semi-Fowlers Semi-Fowlers Semi-Fowlers Blood Pressure Location Left Arm Right Forearm Right Forearm History Since Last Visit- (Skip if this is Patient's initial visit) Have you changed medications since your No No No last visit? Any new allergies or adverse reactions No No No Had a fall/change in ADL's that may No No No increase risk of falls Signs or symptoms of abuse and/or No No No neglect since last visit Have you been in the hospital since your No No No last visit? Has dressing in place as prescribed Yes Yes Yes Has compression in place as prescribed Yes Yes Yes Has offloadiing in place as prescribed N/A N/A N/A Experienced any changes in pain level or No No No management Left Footwear Regular Shoe Regular Shoe Regular Shoe Right Footwear Regular Shoe Regular Shoe Regular Shoe Pain Scale: 0-10 Numeric Is Patient Pain Free? Yes Yes Yes 01/12/25 11:12 - Today's Visit Information Type of service Follow-up Visit (Physician/PERCUSSION INSTRUMENT TUNER ) Arrival Mode Wheelchair Transfer Assistance Manual Accompanied by Patient Identification Verified (Name & Yes ) Patient Requires Transmission-Based No Precautions Vital Signs Temperature (97.8 F-99.1 F) 97.5 F L Temperature Source Temporal Pulse Rate (60-100) 84 Pulse Location Monitor Respiratory Rate (12-18) 18 Respiratory rate source Observation Oxygen Delivery Method FIO2 % Blood Pressure (90/60-120/80) 134/83 H Blood Pressure Mean (mm Hg) 100 Source Monitor Position Sitting Blood Pressure Location Left Arm History Since Last Visit- (Skip if this is Patient's initial visit) Have you changed medications since your No last visit? Any new allergies or adverse reactions No Had a fall/change in ADL's that may No increase risk of falls Signs or symptoms of abuse and/or No neglect since last visit Have you been in the hospital since your No last visit? Has dressing in place as prescribed Yes Has compression in place as prescribed Yes Has offloadiing in place as prescribed N/A Experienced any changes in pain level or No management Left Footwear Regular Shoe Right Footwear Regular Shoe Pain Scale: 0-10 Numeric Is Patient Pain Free? Yes WC - Nurse 1 - General Ulcer Measurement Start: 12/21/24 13:51 Freq: Status: Active Protocol: Activity Type Activity Date Activity User E-sign Co-sign Detail Recorded Client Recorded Date Recorded By Document 12/21/24 14:04 KW [id number] 12/21/24 14:06 KW Document 12/29/24 10:00 KW [id number] 12/29/24 10:14 KW Document 01/05/25 10:58 KW [id number] 01/05/25 11:15 KW Document 01/12/25 11:12 RB [id number] 01/12/25 11:15 RB 12/21/24 12/29/24 01/05/25 14:04 10:00 10:58 Wound Center Nurse 1 12. lle -Combined with other wound -Current Size (cm) - Length 0.1 -Current Size (cm) - Width 0.1 -Current Size (cm) - Depth 0 -Total Square Cm 0.01 -Date of Last Picture (Recall this 01/05/25 field) -Photo Taken -Tunneling -Undermining/Tunneling -Circular Undermining -Exudate Amt Large -Exudate Type Serosanguineous -Wound Margin Indistinct, Non -Visible -Granulation Amt Large (67-100%) -Granulation Quality [place] -Slough/Fibrin -Necrosis Amt -Necrotic Tissue Type -Structure Exposed -Texture (Adrianna-wound Skin Appearance) Assessed Assessed -Moisture (Adrianna-wound Skin Appearance) Assessed Assessed -Color (Adrianna-wound Skin Appearance) Assessed, Assessed, Erythema Erythema -Temperature (Adrianna-wound Skin No Abnormality No Abnormality Appearance) (Pt Warm) (Pt Warm) -Tenderness on Palpation (Adrianna-wound No No Skin Appearance) -Ulcer Cleansing Soap and Water Soap and Water -Foul Odor after Cleansing No No -Anesthetic Used 5% Lidocaine Gel -Wound Comment(s) not measured during nurse 1 7. RLE lateral -Combined with other wound -Current Size (cm) - Length 0.1 -Current Size (cm) - Width 0.1 -Current Size (cm) - Depth 0 -Total Square Cm 0.01 -Date of Last Picture (Recall this 01/05/25 field) -Photo Taken -Tunneling -Undermining/Tunneling -Circular Undermining -Exudate Amt Large -Exudate Type Serosanguineous -Wound Margin Indistinct, Non -Visible -Granulation Amt Large (67-100%) -Granulation Quality [place] -Slough/Fibrin -Necrosis Amt -Necrotic Tissue Type -Structure Exposed -Texture (Adrianna-wound Skin Appearance) Assessed -Moisture (Adrianna-wound Skin Appearance) Assessed -Color (Adrianna-wound Skin Appearance) Assessed, Erythema -Temperature (Adrianna-wound Skin No Abnormality Appearance) (Pt Warm) -Tenderness on Palpation (Adrianna-wound No Skin Appearance) -Ulcer Cleansing Soap and Water -Foul Odor after Cleansing No -Anesthetic Used 5% Lidocaine Gel -Wound Comment(s) not measured during nurse 1 Lower Limb Edema Present Right Calf (cm) 49 49.1 50 Right Ankle (cm) 28.5 29.1 30.5 Left Calf (cm) 54 51 Left Ankle (cm) 29.5 47.5 30.5 Left Foot (cm) 29.3 01/12/25 11:12 Wound Center Nurse 1 12. lle -Combined with other wound No -Current Size (cm) - Length 0.1 -Current Size (cm) - Width 0.1 -Current Size (cm) - Depth 0.1 -Total Square Cm 0.01 -Date of Last Picture (Recall this field) -Photo Taken Yes -Tunneling No -Undermining/Tunneling No -Circular Undermining No -Exudate Amt Medium -Exudate Type Serosanguineous -Wound Margin -Granulation Amt Large (67-100%) -Granulation Quality [place] -Slough/Fibrin Yes -Necrosis Amt Small (1-33%) -Necrotic Tissue Type Adherent Slough -Structure Exposed N/A -Texture (Adrianna-wound Skin Appearance) Assessed, Excoriation -Moisture (Adrianna-wound Skin Appearance) Assessed -Color (Adrianna-wound Skin Appearance) Assessed -Temperature (Adrianna-wound Skin No Abnormality Appearance) (Pt Warm) -Tenderness on Palpation (Adrianna-wound No Skin Appearance) -Ulcer Cleansing Wound Cleanser -Foul Odor after Cleansing No -Anesthetic Used 5% Lidocaine Gel -Wound Comment(s) 7. RLE lateral -Combined with other wound No -Current Size (cm) - Length 0.1 -Current Size (cm) - Width 0.1 -Current Size (cm) - Depth 0.1 -Total Square Cm 0.01 -Date of Last Picture (Recall this field) -Photo Taken Yes -Tunneling No -Undermining/Tunneling No -Circular Undermining No -Exudate Amt Large -Exudate Type Serosanguineous -Wound Margin Distinct, Outline Attached -Granulation Amt Medium (34-66%) -Granulation Quality [place] -Slough/Fibrin Yes -Necrosis Amt Medium (34-66%) -Necrotic Tissue Type Adherent Slough -Structure Exposed N/A -Texture (Adrianna-wound Skin Appearance) Assessed, Excoriation -Moisture (Adrianna-wound Skin Appearance) Assessed -Color (Adrianna-wound Skin Appearance) Assessed -Temperature (Adrianna-wound Skin No Abnormality Appearance) (Pt Warm) -Tenderness on Palpation (Adrianna-wound No Skin Appearance) -Ulcer Cleansing Wound Cleanser -Foul Odor after Cleansing No -Anesthetic Used 5% Lidocaine Gel -Wound Comment(s) Lower Limb Edema Present Yes Right Calf (cm) 62.5 Right Ankle (cm) 30.2 Left Calf (cm) 59 Left Ankle (cm) 31.4 Left Foot (cm) WC - Nurse 2 - General Ulcer CM Notes Start: 12/21/24 13:51 Freq: Status: Active Protocol: Activity Type Activity Date Activity User E-sign Co-sign Detail Recorded Client Recorded Date Recorded By Document 12/29/24 10:56 GM [id number] 12/29/24 11:09 GM Document 01/05/25 12:02 DS [id number] 01/05/25 12:04 DS Document 01/12/25 11:24 DS [id number] 01/12/25 11:29 DS 12/29/24 01/05/25 01/12/25 10:56 12:02 11:24 Wound Center Nurse 2 12. lle -Time 11: 12:02 11:24 -Correct Patient Yes Yes Yes -Correct Side, Site, Position Yes Yes Yes -Correct Procedure Yes -Procedure Performed Yes No No -Type of Procedure Debridement -Clinical Debridement Epidermis / Dermis -Tissue Removed Epidermis -Post Debridement (cm) - Length 11.0 7.5 -Post Debridement (cm) - Width 8.0 5.5 -Post Debridement (cm) - Depth 0.1 0.1 -Total Square (Post) (cm) 88.00 41.25 -Area of Debridement (cm) - Length 11.0 7.5 -Area of Debridement (cm) - Width 8.0 5.5 -Total Square (Area) (cm) 88.00 41.25 -Tunneling No -Undermining/Tunneling No -Circular Undermining No -Wound/Ulcer Outcome Not Healed Not Healed Not Healed -Ulcer Cleansing Rinsed/ Irrigated with Saline -Foul Odor after Cleansing No -Bioengineered Tissue No -Bleeding Controlled with NA -Treatment Response Procedure Tolerated Well -Offloading No -Debridement - Open, 1st 20sq cm No 7. RLE lateral -Time 11: 12:03 11:24 -Correct Patient Yes Yes Yes -Correct Side, Site, Position Yes Yes Yes -Correct Procedure Yes -Procedure Performed Yes No No -Type of Procedure Debridement -Clinical Debridement Epidermis / Dermis -Tissue Removed Epidermis -Post Debridement (cm) - Length 5.5 3.5 -Post Debridement (cm) - Width 6.5 2.0 -Post Debridement (cm) - Depth 0.1 0.1 -Total Square (Post) (cm) 35.75 7.00 -Area of Debridement (cm) - Length 5.5 3.5 -Area of Debridement (cm) - Width 6.5 2.0 -Total Square (Area) (cm) 35.75 7.00 -Tunneling No -Undermining/Tunneling No -Circular Undermining No -Wound/Ulcer Outcome Not Healed Not Healed Not Healed -Ulcer Cleansing Rinsed/ Irrigated with Saline -Foul Odor after Cleansing No -Bioengineered Tissue No -Bleeding Controlled with NA -Treatment Response Procedure Tolerated Well -Offloading No -Debridement - Open, 1st 20sq cm Yes -Debridement, Open, ea addt'l 20sq cm 6 or part thereof Pain Scale: 0-10 Numeric Is Patient Pain Free? Yes Yes Yes WC - Nurse 3 - General Ulcer D/C NN Start: 12/21/24 13:51 Freq: Status: Active Protocol: Activity Type Activity Date Activity User E-sign Co-sign Detail Recorded Client Recorded Date Recorded By Document 12/21/24 13:55 KW [id number] 12/21/24 13:55 KW Edit Result 12/21/24 13:55 KW (1) [id number] 12/21/24 14:06 KW Document 12/29/24 11:16 BMF [id number] 12/29/24 11:18 BMF Document 01/05/25 12:11 KW [id number] 01/05/25 12:12 KW Document 01/12/25 12:15 RB [id number] 01/12/25 12:18 RB (1) 12. lle - Primary Dressing Applied Optilok 5x5 1/2 => Optilok 6.5x10 - Optilok 5x5 1/2 1 => - Optilok 6.5x10 => 1 12/21/24 12/29/24 01/05/25 13:55 11:16 12:11 Wound Care Center Nurse 3 12. lle -Ulcer Cleansing Soap and Water Soap and Water -Primary Dressing Applied Optilok 6.5x10 Aquacel Extra, Aquacel AG 4x4, Optilok 5x5 1/2 Optilok 6.5x10 -Other Dressing DRSGS PER RB RN -Primary Dressing Covered/Secured with Dry Gauze Dry Gauze & Roll Gauze -Aquacel Extra 1 -Aquacel AG 4x4 1 -Optilok 5x5 1/2 1 -Optilok 6.5x10 1 1 7. RLE lateral -Ulcer Cleansing Soap and Water -Primary Dressing Applied Aquacel Extra, Aquacel AG 4x4, Optilok 5x5 1/2 Optilok 5x5 1/2 -Other Dressing DRSG PER RB RN -Primary Dressing Covered/Secured with Dry Gauze & Roll Gauze, Secured with Tape -Other Covering -Aquacel Extra 0 -Aquacel AG 4x4 1 -Optilok 5x5 1/2 1 1 BLE -Multi-Layered Wrap Application Unna Bradleyot - Unna Boot - Bilateral Bilateral -Compression Wrap Aldo Wrap -Other APPLIED PER RB 4 in and 6 in RN -Unna- Bilat (Qty applied) 1 1 Treatment Response Procedure Tolerated Well Pain Scale: 0-10 Numeric Is Patient Pain Free? Yes Yes Yes WC - Visit Discharge Discharge Condition Stable Stable Stable Ambulatory Status Ambulatory, Ambulatory, Ambulatory, Walker Walker Walker Transportation Private Auto Private Auto Private Auto Accompanied by Medication Reconcilliation completed & No No provided to patient/care provider Clinical Summary of Care Provided Yes Yes 01/12/25 12:15 Wound Care Center Nurse 3 12. lle -Ulcer Cleansing -Primary Dressing Applied Aquacel AG 4x4 -Other Dressing ABD -Primary Dressing Covered/Secured with Dry Gauze & Roll Gauze, Secured with Tape -Aquacel Extra -Aquacel AG 4x4 1 -Optilok 5x5 1/2 -Optilok 6.5x10 7. RLE lateral -Ulcer Cleansing Rinsed/ Irrigated with Saline -Primary Dressing Applied -Other Dressing AQUACEL AG/ ABD -Primary Dressing Covered/Secured with Dry Gauze & Roll Gauze, Other -Other Covering abd pad -Aquacel Extra -Aquacel AG 4x4 -Optilok 5x5 1/2 BLE -Multi-Layered Wrap Application -Compression Wrap Aldo Wrap -Other -Unna- Bilat (Qty applied) Treatment Response Procedure Tolerated Well Pain Scale: 0-10 Numeric Is Patient Pain Free? Yes WC - Visit Discharge Discharge Condition Stable Ambulatory Status Wheelchair Transportation Private Auto Accompanied by Medication Reconcilliation completed & No provided to patient/care provider Clinical Summary of Care Provided Yes Assessment/Plan Assessment/Plan (1) Non-pressure chronic ulcer left lower leg, limited to breakdown skin: CODE(S): L97.921 - Non-pressure chronic ulcer of unspecified part of left lower leg limited to breakdown of skin (2) Venous insufficiency: CODE(S): I87.2 - Venous insufficiency (chronic) (peripheral) (3) Edema of both lower extremities: CODE(S): R60.0 - Localized edema (4) Lymphedema: CODE(S): I89.0 - Lymphedema, not elsewhere classified (5) Essential hypertension: CODE(S): I10 - Essential (primary) hypertension (6) Morbid obesity with BMI of 45.0-49.9, adult: CODE(S): E66.01 - Morbid (severe) obesity due to excess calories; Z68.42 - Body mass index [BMI] 45.0-49.9, adult (7) Debility: CODE(S): R53.81 - Other malaise (8) Osteoarthritis: CODE(S): M19.90 - Unspecified osteoarthritis, unspecified site QUALIFIERS: Osteoarthritis location: multiple joints Osteoarthritis type: primary Qualified Code(s): M15.9 - Polyosteoarthritis, unspecified (9) COPD (chronic obstructive pulmonary disease): CODE(S): J44.9 - Chronic obstructive pulmonary disease, unspecified QUALIFIERS: COPD type: unspecified COPD Qualified Code(s): J44.9 - Chronic obstructive pulmonary disease, unspecified (10) Chronic hypoxemic respiratory failure: CODE(S): J96.11 - Chronic respiratory failure with hypoxia (11) Pulmonary hypertension: CODE(S): I27.20 - Pulmonary hypertension, unspecified (12) Hypothyroidism: CODE(S): E03.9 - Hypothyroidism, unspecified QUALIFIERS: Hypothyroidism type: unspecified Qualified Code(s): E03.9 - Hypothyroidism, unspecified (13) Type 2 diabetes mellitus: CODE(S): E11.9 - Type 2 diabetes mellitus without complications QUALIFIERS: Diabetes mellitus complication status: with other specified complication Diabetes mellitus mcfp insulin use: without mcfp use Qualified Code(s): E11.69 - Type 2 diabetes mellitus with other specified complication (14) DOLORES (obstructive sleep apnea): CODE(S): G47.33 - Obstructive sleep apnea (adult) (pediatric) (15) Cellulitis of left lower extremity: CODE(S): L03.116 - Cellulitis of left lower limb (16) Venous ulcer with fat layer exposed: CODE(S): I83.009 - Varicose veins of unspecified lower extremity with ulcer of unspecified site; L97.902 - Non-pressure chronic ulcer of unspecified part of unspecified lower leg with fat layer exposed (17) Venous stasis ulcer of right calf with fat layer exposed: CODE(S): I83.012 - Varicose veins of right lower extremity with ulcer of calf; L97.212 - Non-pressure chronic ulcer of right calf with fat layer exposed QUALIFIERS: Varicose vein presence: with varicose veins Qualified Code(s): I83.012 - Varicose veins of right lower extremity with ulcer of calf; L97.212 - Non-pressure chronic ulcer of right calf with fat layer exposed (18) Venous stasis ulcer of left calf with fat layer exposed: CODE(S): I83.022 - Varicose veins of left lower extremity with ulcer of calf; L97.222 - Non-pressure chronic ulcer of left calf with fat layer exposed QUALIFIERS: Varicose vein presence: with varicose veins Qualified Code(s): I83.022 - Varicose veins of left lower extremity with ulcer of calf; L97.222 - Non-pressure chronic ulcer of left calf with fat layer exposed PLAN: Plan Evaluation and debridement performed today in clinic as annotated above. At home wound-care instructions: Will apply Aquacel extra and superabsorber to left lateral leg and to right lateral leg and wrap with Kerlix and secure with ALDO bandage and change daily. She was instructed to keep dressings clean and dry. Will have her use lymphedema pumps for 60 minutes 2-3 times daily. She has been noncompliant with pumps and was encouraged to increase frequency. Also, encouraged to take diuretic daily. Off-loading: The patient was instructed to avoid pressure and friction on the affected areas. Reposition every 2 hours at minimum. Avoid prolonged standing and/or dangling of legs. When seated, feet should be elevated at chest level. Frequent ambulation is encouraged. Diet: Patient encouraged to increase protein intake while taking caution to avoid high carbohydrate and/or sugar intake. Encouraged weight loss. Labs/cultures/imaging: Wound Culture of left allen ulcer showed pseudomonas and MRSA. Ciprofloxacin prescribed. Venous ultrasound showed incompetence of veins of left lower extremity and vascular performed an ablation on 07/27/2024. Culture showed E. faecalis, anaerobic bacteria and Pseudomonas advised to restart Ciprofloxacin and Flagyl was prescribed for Anaerobic bacteria. 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 She has been referred to infectious disease and they will see her 09/27/2024. We are going to try treating her with Bactrim DS until she sees Dr. Johnson. She is tolerating this. Completed Bactrim DS. Completed IV Gentamicin. Wound culture taken was positive for multiple bacteria. Anaerobic culture is still pending. She will complete treatment on Levofloxacin and Keflex based on sensitivities. Repeat venous testing did not show thrombosis or failure of previous venous ablation. Encouraged her to get her CPAP mask to improve DOLORES and pulmonary HTN treatment compliance which is adding to her decompensated lymphedema. Follow-up: Will discharge her from treatment and have her follow up as needed if she has increased drainage or development of ulcers. Return sooner or report to the emergency room should symptoms worsen, or new symptoms arise. Note: [employer] speech recognition courtesy booth cashier software was used to create portions of this document. Sound-alike and misspelled words, as well as other courtesy booth cashier errors may be contained in the documentation.
--- NOTE | 2025-01-22 10:37 | WC ---
PHOTO-RLE 01/19/25
--- NOTE | 2025-01-22 10:38 | WC ---
PHOTO-RLE 01/19/25
== END 2025-01-19 12:24 | disposition home or self-care (01) ==
LOC: WC 10:13
PROVIDERS: PCP Internal Medicine; Referring Provider Internal Medicine; Visit Provider Family Medicine
DX: I83.022 Varicose veins of left lower extremity with ulcer of calf (principal); L97.212 Non-pressure chronic ulcer of right calf with fat layer exposed; L97.222 Non-pressure chronic ulcer of left calf with fat layer exposed; I83.012 Varicose veins of right lower extremity with ulcer of calf; J96.11 Chronic respiratory failure with hypoxia; I50.9 Heart failure, unspecified; I11.0 Hypertensive heart disease with heart failure; J44.9 Chronic obstructive pulmonary disease, unspecified; E66.01 Morbid (severe) obesity due to excess calories; Z68.42 Body mass index [BMI] 45.0-49.9, adult; E11.9 Type 2 diabetes mellitus without complications; R60.0 Localized edema; I89.0 Lymphedema, not elsewhere classified; Z86.718 Personal history of other venous thrombosis and embolism; M15.9 Polyosteoarthritis, unspecified; E03.9 Hypothyroidism, unspecified; Z79.890 Hormone replacement therapy; Z79.899 Other long term (current) drug therapy; G47.33 Obstructive sleep apnea (adult) (pediatric); L03.116 Cellulitis of left lower limb
CPT/HCPCS: 99213; G0463

== ENCOUNTER → 2025-01-19 | Outpatient (CLI) | payer MEDICARE, MEDICAID, SELFPAY ==
[2025-01-19 15:56] LABS: Hematocrit 40.3 % (37-47); Hemoglobin 12.7 g/dL (12.0-15.0); Immature Granulocytes Count 0.060 X10^3/uL (0.0-0.0); Immature Reticulocyte Fraction 17.60 % (3.00-15.90); Mean Corp Hgb Conc 31.5 g/dL (32-36); Mean Corpuscular Volume 81.6 fL (81-99); Mean Platelet Vol. 10.2 fl (6.2-12.0); NRBC Flagged by Analyzer 0 % (0-5); Platelet Count 255 K/mm3 (150-450); RBC Distribution Width CV 14.8 % (11.6-14.6); RBC Distribution Width SD 43.8 fl (35.1-43.9); Red Blood Count 4.94 M/mm3 (4.2-5.4); Reticulocyte Count 1.57 % (0.5-1.5); White Blood Count 7.4 K/mm3 (4.4-11.0)
[2025-01-19 16:18] LABS: Anion Gap 10 (5-15); BUN 16 mg/dL (4-19); BUN/Creat Ratio 17.4 RATIO (10-20); Calcium,Total 8.9 mg/dL (7.6-11.0); Carbon Dioxide 27.1 mmol/L (21.0-32.0); Chloride 104 mmol/L (98-108); Glucose 133 mg/dL (70-99); Potassium 4.2 mmol/L (3.3-5.1)
[2025-01-19 16:42] LABS: Vitamin B12 328 pg/mL (180-914)
[2025-01-25 00:07] LABS: Vitamin B1, Thiamine 102.2 nmol/L (66.5-200.0)
== END | disposition home or self-care (01) ==
LOC: BIMLAB 13:58
PROVIDERS: PCP Internal Medicine; Referring Provider Nurse Practitioner Family; Visit Provider Nurse Practitioner Family
DX: I10 Essential (primary) hypertension (principal); R42 Dizziness and giddiness
CPT/HCPCS: 36415; 80048; 82607; 84425; 85025; 85045

== ENCOUNTER → 2025-03-06 | Outpatient (CLI) | payer MEDICARE, MEDICAID, SELFPAY ==
--- NOTE | 2025-03-06 13:21 | MRI_ITS ---
PROCEDURE: BRAIN W/WO CONTRAST 03/06/2025 REASON FOR EXAM: VERTIGO TECHNIQUE: Procedure Code: [id number] Modality: MR Procedure: BRAIN W/WO CONTRAST Multiplanar and multisequence images were obtained. CONTRAST: Clariscan VOLUME: 21 mL COMPARISON: none FINDINGS: No acute or hyperacute infarcts. No intracerebral or extra-axial acute hemorrhage. No obvious enhancing masses. Bilateral cerebral periventricular and subcortical faint high T2/FLAIR WI signal. Normal MRI signal of the cerebellar hemispheres and brain stem. Unremarkable ventricular system. Prominent cortical sulci and extra-axial CSF spaces. No shift of midline structures. Normal MRI appearance of the petrous temporal bones cerebellopontine angles with no definite masses. Normal MRI appearance of orbital structures, both globes, optic nerves, optic chiasm, optic tracts and optic radiations. Scanned paranasal sinuses are unremarkable. MRI/Brain W/WO Contrast IMPRESSION: No acute infarcts. No intracerebral or extra-axial hematomas. No enhancing mass es. Bilateral cerebral mild microvascular ischemic changes. [facility] [address]
== END | disposition home or self-care (01) ==
LOC: MRI 13:18
PROVIDERS: PCP Internal Medicine; Referring Provider Internal Medicine; Visit Provider Internal Medicine
DX: R42 Dizziness and giddiness (principal)
CPT/HCPCS: 70553; A9575; A4216

== ENCOUNTER 2025-04-20 11:00 | Outpatient (RCR) | payer MEDICARE, MEDICAID, SELFPAY ==
[2025-04-13 10:21] VITALS: BP 174/91; PULSE 82; RESP 22; TEMP 36.7; BMI 47.4
--- NOTE | 2025-04-13 12:26 | WC ---
PHOTO-LLE LATERAL 04/13/25
--- NOTE | 2025-04-13 13:21 | HP.PCM_ITS ---
History of Present Illness Date of Service: 04/13/25 Chief Complaint: ulcers b/l LE, bilateral lower extremity swelling History of Wound: Liz is a pleasant 75 yo woman that presents to the wound center for bilateral lower extremity edema and blisters and drainage of her bilateral lower extremities. She has had increased edema the last month and her legs started seeping a few weeks ago. She has been wearing her tubigrip compression and had been using the lymphedema pumps but they continue to be s eeping fluid. She tries to elevate her legs when she is sitting but is not always consistent with doing this. She has been wrapping her leg with gauze and ABDs when it is seeping but otherwise has not been doing any regular dressings. Patient has been treated at the wound center in the past for similar wounds, most recently January 2025. She has also been seen in the vascular surgery clinic where she was evaluated her for BLE DVT and venous insufficiency. 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 GSV ablation has been done to both lower legs. She has lymphedema pumps and has been using these. Last venous study was 11/15/2024. Last A1C 02/07/25 was 6.4%. Patient's medical history is also significant for CHF, COPD, T2DM, lymphedema. She has a CPAP but has not been using this due to needing a new mask. [facility], [facility] Medical History Elevated blood uric acid level Insomnia MRSA (methicillin resistant staph aureus) culture positive Colon cancer screening Debility Osteoarthritis Left knee pain Shingles Urinary incontinence with continuous leakage Gastric ulcer Wears glasses Wears dentures Depression Alcohol use Blister Diabetes Walker as ambulation aid Bladder disease DVT (deep venous thrombosis) Easy bruising Back pain Syncope Dietary restriction Constipation Difficulty swallowing Former smoker CPAP (continuous positive airway pressure) dependence On home oxygen therapy Shortness of breath on exertion Neuropathy Leg cramps History of pain when walking History of edema Hypertension History of CHF (congestive heart failure) History of echocardiogram Cardiology follow-up encounter Hx of cyst of breast Abdominal pain Secondary pulmonary arterial hypertension Hyperlipidemia Left ventricular hypertrophy DVT, bilateral lower limbs Health care maintenance Dermatitis Sore throat Essential hypertension Morbid obesity with BMI of 45.0-49.9, adult Inactivity Lymphedema Asthma GERD (gastroesophageal reflux disease) Ulcer of right lower extremity Difficulty swallowing Depression Type 2 diabetes mellitus Chronic respiratory failure with hypoxia DOLORES (obstructive sleep apnea) Hypothyroidism Pneumonia due to COVID-19 virus (01/30/21) Diabetes mellitus type 2 in obese COPD (chronic obstructive pulmonary disease) Home Medications ?Medication ?Instructions ?Recorded ?Last Taken ?Type Nebulizer #1 ea 10/06/21 Unknown Rx docusate sodium 100 mg capsule 100 mg PO BID 06/04/22 11/27/24 History (Stool Softener) furosemide 40 mg tablet 40 mg PO BID HEART FAILURE # 180 09/04/22 11/27/24 Rx tabs Handicap Placard #1 ea 11/02/22 Unknown Rx Bedside Commode #1 ea 02/11/23 Unknown Rx walker (Ultra-Light Rollator misc) #1 ea 02/11/23 Unkn own Rx Cpap Supplies #1 ea 12/03/23 Unknown Rx walker (Ultra-Light Rollator misc) #1 ea 12/14/23 Unkn own Rx foam bandage 4 X 4 (Aquacel Foam) #10 ea 02/17/24 Un known Rx atorvastatin 40 mg tablet 40 mg PO QHS #90 tabs 11/26/24 Rx albuterol sulfate 2.5 mg/3 mL 2.5 mg (3 mL) inhalation Q4H PRN 10/18/24 11/27/24 Rx (0.083 %) solution for nebulization Sob &/Or Wheezing #180 mL albuterol sulfate 90 mcg/actuation 2 puff inhalation Q 6H PRN for 11/27/24 11/27/24 History aerosol inhaler wheezing meclizine 25 mg tablet 25 mg PO 4X/DAY PRN PRN Dizz iness 11/27/24 Unknown Rx Held on 04/13/25. #20 tabs Instructions: Pt is out potassium chloride 8 mEq 8 meq PO DAILY 11/27/2403/15 History tablet,extended release (Klor-Con) pantoprazole 40 mg tablet,delayed 40 mg PO DAILY #90 t abs 12/19/24 Unknown Rx release ergocalciferol (vitamin D2) 1,250 See Rx Instructions .Route 01/19/25 Unknown Rx mcg (50,000 unit) capsule (Vitamin .COMPLEX #24 caps D2) oxybutynin chloride 5 mg tablet 5 mg PO BID bladder #1 80 tabs 01/22/25 Unknown Rx fluticasone fur. 200 mcg-umeclid 1 inh inhalation DAVEY Y #60 ea 01/24/25 Unknown Rx 62.5 mcg-vilant 25 mcg inhalat.powder (Trelegy Ellipta) levothyroxine 100 mcg tablet See Rx Instructions .Rout e 02/14/25 Unknown Rx .COMPLEX #90 tabs carvedilol 25 mg tablet 25 mg PO BID #60 tabs Unknown Rx losartan 25 mg tablet 25 mg PO QDAY #30 tabs 03/28 Unknown Rx trazodone 50 mg tablet 50 mg PO QHS PRN insomnia #3 0 tabs 03/28/25 Unknown Rx cephalexin 500 mg capsule 500 mg PO BID 10 days #20 ca ps 04/13/25 Unknown Rx fluconazole 200 mg tablet 200 mg PO DAILY #2 tabs 03/22 10/13 Unknown Rx sulfamethoxazole 800 1 tab PO BID 10 days #20 tab s 04/13/25 Unknown Rx mg-trimethoprim 160 mg tablet Allergy/AdvReac Type Severity Reaction Status Date / Time metformin AdvReac Intermediate Other Verified 03/28/25 14:28 aspirin AdvReac Abd Verified 03/28/25 14:28 cramps/diarrhea codeine AdvReac Abd Verified 03/28/25 14:28 cramps/diarrhea Penicillins AdvReac Hives Verified 03/28/25 14:28 Family History Grandfather Cancer Daughter Ovarian cancer Brother Diabetes Kidney disease Surgical History History of esophagogastroduodenoscopy (EGD) Hx of colonoscopy History of bunionectomy Hx of cholecystectomy Social History Smoking Status: Former smoker Tobacco: How many years used: 30 how long ago did patient quit smokin years alcohol intake: never substance use type: does not use what type of physical activity do you participate in: none ROS Constitutional Constitutional: Reports chills; Denies fatigue or fever(s) Eyes Eyes: Denies blurry vision, change in vision or loss of vision ENT HEENT: Denies dysphagia, hearing loss or sore throat Cardiovascular Cardiovascular: Reports edema and leg edema; Denies chest pain or palpitations Respiratory/Chest Respiratory/Chest: Denies dry cough, dyspnea, dyspnea on exertion, productive cough or wheezing Gastrointestinal Gastrointestinal: Denies diarrhea, nausea or vomiting Genitourinary Genitourinary: Reports urinary incontinence; Denies dysuria or polyuria Musculoskeletal Musculoskeletal: Reports arthralgias, difficulty walking, extremity pain and joint stiffness; Denies muscle weakness Integumentary Integumentary: Reports erythema and wounds Neurologic Neurologic: Denies dizziness, memory loss or weakness Psychiatric Psychiatric: Denies homicidal ideation or suicidal ideation Endocrine Endocrinology: Denies polydipsia, polyphagia or polyuria Hematologic/Lymphatic Hematologic/Lymphatic: Denies easy bleeding or easy bruising Allergic/Immunologic Allergic/Immunologic: Denies throat swelling, tongue swelling or urticaria Vital Signs Vital Signs Vital Signs: 04/13/25 10:21 Temperature 98.0 F Temperature Source Temporal Pulse Rate 82 Respiratory Rate 22 H Blood Pressure 174/91 H Blood Pressure Mean 118 Blood Pressure Source Monitor Weight Weight: 133.356 kg Body Mass Index (BMI) 47.4 Physical Exam Const alert, oriented x3, no apparent distress and healthy appearing General Appearance: cooperative; Negative for combative or lethargic Orientation / Consciousness: awake Exam Limitations: no limitations Nutritional Appearance: obese HEENT normocephalic and head/scalp atraumatic Eyes EOMs intact bilaterally General Eye: normal appearance of both eyes Neck full ROM General: trachea midline Lymph Lymphatic: lymphedema severe and pitting Resp normal respiratory effort and no use of accessory muscles Effort and Inspection: Negative for labored, stridor or audible wheezes Cardio regular rate and regular rhythm Back/Spine Cervical Spine: cervical ROM normal Extremity full ROM, normal capillary refill and no clubbing, cyanosis or edema General Extremity: edema bilateral lower extremity Details: severe (with skin changes associated with lymphedema, thickened nodular appearance from mid allen to ankle) Skin General Skin Exam: erythema, venous stasis and dermatitis Wounds: wounds noted Wound Narrative: as in clinical panel, erythema of right and left lateral lower legs and heavy serous drainage, superficial ulcers present bilaterally in clusters, nodular appearance of skin associated with lymphedema bilaterally Neuro oriented x3, CN's II-XII intact bilaterally, no focal motor deficits and no sensory deficits noted Psych thought process normal, cooperative, affect normal, speech normal and activity/motor behavior normal Debridement Note Debridement Note Wound debrided: Left lateral LE Laterality: Left Type of Debridement: Excisional debridement Anesthesia Used: 5% Lidocaine Gel Depth: Down to and including healthy tissue and in the subcutaneous layer Percentage of wound debrided: 100 Instrument Used: 3mm curette Tissue Removed: Yellow slough, devitalized tissue Severity: Fat Layer Exposed Amount of bleeding with debridement: Mild Bleeding Controlled with: Compression and gauze Patient tolerated procedure: Patient tolerated procedure well Post-Debridement Measurements and Additional Note: Post-Debridement Measurements/Treatment WC - Nurse 1 - General Ulcer Assessment Start: 04/13/25 10:21 Freq: Status: Active Protocol: KELSEY Activity Type Activity Date Activity User E-sign Co-sign Detail Recorded Client Recorded Date Recorded By Document 04/13/25 10:21 TS [id number] 04/13/25 10:30 TS 04/13/25 10:21 WC - Today's Visit Information Type of service Initial Visit Arrival Mode Ambulatory, Walker Accompanied by Patient Identification Verified (Name & Yes ) Patient Requires Transmission-Based No Precautions Safety Precautions NA Height and Weight Height 5 ft 6 in Weight 133.356 kg Weight in Pounds 294.0 lbs Weight Measurement Method Stated by Patient Body Mass Index (BMI) 47.4 BMI Classification Obese Vital Signs Temperature (97.8 F-99.1 F) 98.0 F Temperature Source Temporal Pulse Rate (60-100) 82 Pulse Location Monitor Respiratory Rate (12-18) 22 H Respiratory rate source Observation Blood Pressure (90/60-120/80) 174/91 H Blood Pressure Mean 118 Source Monitor History Since Last Visit- (Skip if this is Patient's initial visit) Left Footwear Regular Shoe Right Footwear Regular Shoe Pain Scale: 0-10 Numeric Is Patient Pain Free? No BL feet -Description Sharp,Aching -Intensity 8 -Duration (hours) Acute -Pain Aggravating Factors Exercise/ Activity, Standing, Walking -Alleviating Factors/Interventions Medication -Effectiveness of Alleviating Factor/ Minimally Intervention effective - Nurse 1 - General Ulcer Measurement Start: 04/13/25 10:21 Freq: Status: Active Protocol: Activity Type Activity Date Activity User E-sign Co-sign Detail Recorded Client Recorded Date Recorded By Document 04/13/25 10:21 TS [id number] 04/13/25 10:30 TS 04/13/25 10:21 Wound Center Nurse 1 #13 left lateral lower leg -Combined with other wound No -Current Size (cm) - Length 0.1 -Current Size (cm) - Width 0.1 -Current Size (cm) - Depth 0.1 -Total Square Cm 0.01 -Date of Last Picture (Recall this 04/13/25 field) -Photo Taken Yes -Tunneling No -Undermining/Tunneling No -Exudate Amt Large -Exudate Type Serosanguineous -Granulation Amt Medium (34-66%) -Granulation Quality [place],Red -Slough/Fibrin Yes -Necrosis Amt Medium (34-66%) -Necrotic Tissue Type Adherent Slough -Structure Exposed None/Limited to Skin Breakdown -Texture (Adrianna-wound Skin Appearance) Assessed, Localized Edema -Moisture (Adrianna-wound Skin Appearance) Maceration, Weeping -Color (Adrianna-wound Skin Appearance) Assessed -Temperature (Adrianna-wound Skin No Abnormality Appearance) (Pt Warm) -Tenderness on Palpation (Adrianna-wound No Skin Appearance) -Ulcer Cleansing Rinsed/ Irrigated with Saline -Anesthetic Used 5% Lidocaine Gel Lower Limb Edema Present Yes Point of measurement (cm from the medial 54.6 instep) Point of Measurement (cm from the medial 30.4 instep) Point of measurement (cm from the medial 54.6 instep) Left Ankle (cm) 28.8 WC - Nurse 2 - General Ulcer CM Notes Start: 04/13/25 10:21 Freq: Status: Active Protocol: Activity Type Activity Date Activity User E-sign Co-sign Detail Recorded Client Recorded Date Recorded By Document 04/13/25 11:05 [id number] 04/13/25 11:11 04/13/25 11:05 Wound Center Nurse 2 #14 Right Lateral Leg -Time 11:06 -Correct Patient Yes -Correct Side, Site, Position Yes -Correct Procedure Yes -Procedure Performed Yes -Type of Procedure Debridement -Clinical Debridement Subcutaneous -Tissue Removed Subcutaneous -Post Debridement (cm) - Length 3.0 -Post Debridement (cm) - Width 3.0 -Post Debridement (cm) - Depth 0.1 -Total Square (Post) (cm) 9.00 -Area of Debridement (cm) - Length 3.0 -Area of Debridement (cm) - Width 3.0 -Total Square (Area) (cm) 9.00 -Tunneling No -Undermining/Tunneling No -Circular Undermining No -Wound/Ulcer Outcome Not Healed -Ulcer Cleansing Rinsed/ Irrigated with Saline -Foul Odor after Cleansing No -Bioengineered Tissue No -Bleeding Controlled with Pressure -Treatment Response Procedure Tolerated Well -Offloading No -Debridement - Subq, 1st 20sq cm Yes #13 left lateral lower leg -Time 11:05 -Correct Patient Yes -Correct Side, Site, Position Yes -Correct Procedure Yes -Procedure Performed Yes -Type of Procedure Debridement -Clinical Debridement Subcutaneous -Tissue Removed Subcutaneous -Post Debridement (cm) - Length 3.0 -Post Debridement (cm) - Width 2.0 -Post Debridement (cm) - Depth 0.1 -Total Square (Post) (cm) 6.00 -Area of Debridement (cm) - Length 3.0 -Area of Debridement (cm) - Width 2.0 -Total Square (Area) (cm) 6.00 -Tunneling No -Undermining/Tunneling No -Circular Undermining No -Wound/Ulcer Outcome Not Healed -Ulcer Cleansing Rinsed/ Irrigated with Saline -Foul Odor after Cleansing No -Bioengineered Tissue No -Bleeding Controlled with Pressure -Treatment Response Procedure Tolerated Well -Offloading No -Debridement - Subq, 1st 20sq cm No Pain Scale: 0-10 Numeric Is Patient Pain Free? Yes - Nurse 3 - General Ulcer D/C NN Start: 04/13/25 10:21 Freq: Status: Active Protocol: Activity Type Activity Date Activity User E-sign Co-sign Detail Recorded Client Recorded Date Recorded By Document 04/13/25 11:27 [id number] 04/13/25 11:52 04/13/25 11:27 Wound Care Center Nurse 3 #14 Right Lateral Leg -Primary Dressing Applied Fibracol Plus 4x4,Optilok 5x5 1/2 -Fibracol Plus 4x4 1 -Optilok 5x5 1/2 1 #13 left lateral lower leg -Primary Dressing Applied Fibracol Plus 4x4,Optilok 5x5 1/2 -Fibracol Plus 4x4 0 -Optilok 5x5 1/2 1 BLE -Multi-Layered Wrap Application Unna Boot - Bilateral -Unna- Bilat (Qty applied) 1 Pain Scale: 0-10 Numeric Is Patient Pain Free? Yes WC - Visit Discharge Discharge Condition Stable Ambulatory Status Ambulatory, Walker Transportation Private Auto Accompanied by Medication Reconcilliation completed & No provided to patient/care provider Clinical Summary of Care Provided Yes Additional Wound Wound debrided: right lateral LE Laterality: Right Type of Debridement: Excisional debridement Anesthesia Used: 5% Lidocaine Gel Depth: Down to and including healthy tissue and in the subcutaneous layer Percentage of wound debrided: 100 Instrument Used: 3mm curette Tissue Removed: Yellow slough, devitalized tissue Severity: Fat Layer Exposed Amount of bleeding with debridement: Mild Bleeding Controlled with: Compression and gauze Patient tolerated procedure: Patient tolerated procedure well Assessment/Plan Assessment/Plan (1) Non-pressure chronic ulcer left lower leg, limited to breakdown skin: CODE(S): L97.921 - Non-pressure chronic ulcer of unspecified part of left lower leg limited to breakdown of skin (2) Venous insufficiency: CODE(S): I87.2 - Venous insufficiency (chronic) (peripheral) (3) Edema of both lower extremities: CODE(S): R60.0 - Localized edema (4) Lymphedema: CODE(S): I89.0 - Lymphedema, not elsewhere classified (5) Essential hypertension: CODE(S): I10 - Essential (primary) hypertension (6) Morbid obesity with BMI of 45.0-49.9, adult: CODE(S): E66.01 - Morbid (severe) obesity due to excess calories; Z68.42 - Body mass index [BMI] 45.0-49.9, adult (7) Debility: CODE(S): R53.81 - Other malaise (8) Osteoarthritis: CODE(S): M19.90 - Unspecified osteoarthritis, unspecified site QUALIFIERS: Osteoarthritis location: multiple joints Osteoarthritis type: primary Qualified Code(s): M15.9 - Polyosteoarthritis, unspecified (9) COPD (chronic obstructive pulmonary disease): CODE(S): J44.9 - Chronic obstructive pulmonary disease, unspecified QUALIFIERS: COPD type: unspecified COPD Qualified Code(s): J44.9 - Chronic obstructive pulmonary disease, unspecified (10) Chronic hypoxemic respiratory failure: CODE(S): J96.11 - Chronic respiratory failure with hypoxia (11) Pulmonary hypertension: CODE(S): I27.20 - Pulmonary hypertension, unspecified (12) Hypothyroidism: CODE(S): E03.9 - Hypothyroidism, unspecified QUALIFIERS: Hypothyroidism type: unspecified Qualified Code(s): E03.9 - Hypothyroidism, unspecified (13) Type 2 diabetes mellitus: CODE(S): E11.9 - Type 2 diabetes mellitus without complications QUALIFIERS: Diabetes mellitus complication status: with other specified complication Diabetes mellitus watermaster insulin use: without skilled nursing use Qualified Code(s): E11.69 - Type 2 diabetes mellitus with other specified complication (14) DOLORES (obstructive sleep apnea): CODE(S): G47.33 - Obstructive sleep apnea (adult) (pediatric) (15) Cellulitis of left lower extremity: CODE(S): L03.116 - Cellulitis of left lower limb (16) Venous ulcer with fat layer exposed: CODE(S): I83.009 - Varicose veins of unspecified lower extremity with ulcer of unspecified site; L97.902 - Non-pressure chronic ulcer of unspecified part of unspecified lower leg with fat layer exposed (17) Venous stasis ulcer of right calf with fat layer exposed: CODE(S): I83.012 - Varicose veins of right lower extremity with ulcer of calf; L97.212 - Non-pressure chronic ulcer of right calf with fat layer exposed QUALIFIERS: Varicose vein presence: with varicose veins Qualified Code(s): I83.012 - Varicose veins of right lower extremity with ulcer of calf; L97.212 - Non-pressure chronic ulcer of right calf with fat layer exposed (18) Venous stasis ulcer of left calf with fat layer exposed: CODE(S): I83.022 - Varicose veins of left lower extremity with ulcer of calf; L97.222 - Non-pressure chronic ulcer of left calf with fat layer exposed QUALIFIERS: Varicose vein presence: with varicose veins Qualified Code(s): I83.022 - Varicose veins of left lower extremity with ulcer of calf; L97.222 - Non-pressure chronic ulcer of left calf with fat layer exposed PLAN: Plan Evaluation and debridement performed today in clinic as annotated above. At home wound-care instructions: Will apply Fibracol and to UNNA boots to left lateral leg and to right lateral leg to change next week. She was instructed to keep dressings clean and dry. Will have her use lymphedema pumps for 60 minutes 2-3 times daily. She has been noncompliant with pumps and was encouraged to increase frequency. Also, encouraged to take diuretic daily. Prescription for Bactrim DS and Keflex given based on previous cultures/treatment and also Fluconazole given for yeast dermatitis in her groin areas. Off-loading: The patient was instructed to avoid pressure and friction on the affected areas. Reposition every 2 hours at minimum. Avoid prolonged standing and/or dangling of legs. When seated, feet should be elevated at chest level. Frequent ambulation is encouraged. Diet: Patient encouraged to increase protein intake while taking caution to avoid high carbohydrate and/or sugar intake. Encouraged weight loss. Labs/cultures/imaging: Most recent venous doppler 10/2024 and previous history of ablation b/l. Echo 09/2024 showed EF 65% with stage 1 diastolic dysfunction. Encouraged her to get her CPAP mask to improve DOLORES and pulmonary HTN treatment compliance which is adding to her decompensated lymphedema. Follow-up: Return sooner or report to the emergency room should symptoms worsen, or new symptoms arise. Note: [employer] speech recognition field pipe lines supervisor software was used to create portions of this document. Sound-alike and misspelled words, as well as other field pipe lines supervisor errors may be contained in the documentation.
--- NOTE | 2025-04-13 13:42 | HP.PCM_ITS ---
History of Present Illness Date of Service: 04/13/25 Chief Complaint: ulcers b/l LE, bilateral lower extremity swelling History of Wound: Liz is a pleasant 74 yo woman that presents to the wound center for bilateral lower extremity edema and blisters and drainage of her bilateral lower extremities. She has had increased edema the last 2 weeks and her legs started seeping a few days ago. She has been wearing her tubigrip compression and had been using the lymphedema pumps until they started seeping fluid. She tries to elevate her legs when she is sitting but is not always consistent with doing this. She has been wrapping her leg with gauze when it is seeping but otherwise has not been doing any regular dressings. Patient has been treated at the wound center in the past for similar wounds, most recently October 2023. She has also been seen in the vascular surgery clinic where she was evaluated her for BLE DVT and venous insufficiency. 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 GSV ablation has been done to her right lower leg. She has received lymphedema pumps that were ordered during her last treatment course and has been using these. Last venous study was 03/2022. Last A1C 01/2023 was 6.4%. Last TSH - 01/2022 Patient's medical history is also significant for CHF, COPD, T2DM, lymphedema. She has a CPAP but has not been using this due to needing a new mask. She states that a prescription was to be sent and she never received the mask. Her current mask has a hole in it. [facility] Medical History Elevated blood uric acid level Insomnia MRSA (methicillin resistant staph aureus) culture positive Colon cancer screening Debility Osteoarthritis Left knee pain Shingles Urinary incontinence with continuous leakage Gastric ulcer Wears glasses Wears dentures Depression Alcohol use Blister Diabetes Walker as ambulation aid Bladder disease DVT (deep venous thrombosis) Easy bruising Back pain Syncope Dietary restriction Constipation Difficulty swallowing Former smoker CPAP (continuous positive airway pressure) dependence On home oxygen therapy Shortness of breath on exertion Neuropathy Leg cramps History of pain when walking History of edema Hypertension History of CHF (congestive heart failure) History of echocardiogram Cardiology follow-up encounter Hx of cyst of breast Abdominal pain Secondary pulmonary arterial hypertension Hyperlipidemia Left ventricular hypertrophy DVT, bilateral lower limbs Health care maintenance Dermatitis Sore throat Essential hypertension Morbid obesity with BMI of 45.0-49.9, adult Inactivity Lymphedema Asthma GERD (gastroesophageal reflux disease) Ulcer of right lower extremity Difficulty swallowing Depression Type 2 diabetes mellitus Chronic respiratory failure with hypoxia DOLORES (obstructive sleep apnea) Hypothyroidism Pneumonia due to COVID-19 virus (01/30/21) Diabetes mellitus type 2 in obese COPD (chronic obstructive pulmonary disease) Home Medications ?Medication ?Instructions ?Recorded ?Last Taken ?Type Nebulizer #1 ea 10/06/21 Unknown Rx docusate sodium 100 mg capsule 100 mg PO BID 06/04/22 11/27/24 History (Stool Softener) furosemide 40 mg tablet 40 mg PO BID HEART FAILURE # 180 09/04/22 11/27/24 Rx tabs Handicap Placard #1 ea 11/02/22 Unknown Rx Bedside Commode #1 ea 02/11/23 Unknown Rx walker (Ultra-Light Rollator misc) #1 ea 02/11/23 Unkn own Rx Cpap Supplies #1 ea 12/03/23 Unknown Rx walker (Ultra-Light Rollator misc) #1 ea 12/14/23 Unkn own Rx foam bandage 4 X 4 (Aquacel Foam) #10 ea 02/17/24 Un known Rx atorvastatin 40 mg tablet 40 mg PO QHS #90 tabs 11/26/24 Rx albuterol sulfate 2.5 mg/3 mL 2.5 mg (3 mL) inhalation Q4H PRN 10/18/24 11/27/24 Rx (0.083 %) solution for nebulization Sob &/Or Wheezing #180 mL albuterol sulfate 90 mcg/actuation 2 puff inhalation Q 6H PRN for 11/27/24 11/27/24 History aerosol inhaler wheezing meclizine 25 mg tablet 25 mg PO 4X/DAY PRN PRN Dizz iness 11/27/24 Unknown Rx Held on 04/13/25. #20 tabs Instructions: Pt is out potassium chloride 8 mEq 8 meq PO DAILY 11/27/2403/15 History tablet,extended release (Klor-Con) pantoprazole 40 mg tablet,delayed 40 mg PO DAILY #90 t abs 12/19/24 Unknown Rx release ergocalciferol (vitamin D2) 1,250 See Rx Instructions .Route 01/19/25 Unknown Rx mcg (50,000 unit) capsule (Vitamin .COMPLEX #24 caps D2) oxybutynin chloride 5 mg tablet 5 mg PO BID bladder #1 80 tabs 01/22/25 Unknown Rx fluticasone fur. 200 mcg-umeclid 1 inh inhalation DAVEY Y #60 ea 01/24/25 Unknown Rx 62.5 mcg-vilant 25 mcg inhalat.powder (Trelegy Ellipta) levothyroxine 100 mcg tablet See Rx Instructions .Rout e 02/14/25 Unknown Rx .COMPLEX #90 tabs carvedilol 25 mg tablet 25 mg PO BID #60 tabs Unknown Rx losartan 25 mg tablet 25 mg PO QDAY #30 tabs 03/28 Unknown Rx trazodone 50 mg tablet 50 mg PO QHS PRN insomnia #3 0 tabs 03/28/25 Unknown Rx cephalexin 500 mg capsule 500 mg PO BID 10 days #20 ca ps 04/13/25 Unknown Rx fluconazole 200 mg tablet 200 mg PO DAILY #2 tabs 03/22 10/13 Unknown Rx sulfamethoxazole 800 1 tab PO BID 10 days #20 tab s 04/13/25 Unknown Rx mg-trimethoprim 160 mg tablet Allergy/AdvReac Type Severity Reaction Status Date / Time metformin AdvReac Intermediate Other Verified 03/28/25 14:28 aspirin AdvReac Abd Verified 03/28/25 14:28 cramps/diarrhea codeine AdvReac Abd Verified 03/28/25 14:28 cramps/diarrhea Penicillins AdvReac Hives Verified 03/28/25 14:28 Family History Grandfather Cancer Daughter Ovarian cancer Brother Diabetes Kidney disease Surgical History History of esophagogastroduodenoscopy (EGD) Hx of colonoscopy History of bunionectomy Hx of cholecystectomy Social History Smoking Status: Former smoker Tobacco: How many years used: 30 how long ago did patient quit smokin years alcohol intake: never substance use type: does not use what type of physical activity do you participate in: none Vital Signs Vital Signs Vital Signs: 04/13/25 10:21 Temperature 98.0 F Temperature Source Temporal Pulse Rate 82 Respiratory Rate 22 H Blood Pressure 174/91 H Blood Pressure Mean 118 Blood Pressure Source Monitor Weight Weight: 133.356 kg Body Mass Index (BMI) 47.4 Debridement Note Debridement Note Post-Debridement Measurements and Additional Note: Post-Debridement Measurements/Treatment WC - Nurse 1 - General Ulcer Assessment Start: 04/13/25 10:21 Freq: Status: Active Protocol: KELSEY Activity Type Activity Date Activity User E-sign Co-sign Detail Recorded Client Recorded Date Recorded By Document 04/13/25 10:21 TS [id number] 04/13/25 10:30 TS 04/13/25 10:21 WC - Today's Visit Information Type of service Initial Visit Arrival Mode Ambulatory, Walker Accompanied by Patient Identification Verified (Name & Yes ) Patient Requires Transmission-Based No Precautions Safety Precautions NA Height and Weight Height 5 ft 6 in Weight 133.356 kg Weight in Pounds 294.0 lbs Weight Measurement Method Stated by Patient Body Mass Index (BMI) 47.4 BMI Classification Obese Vital Signs Temperature (97.8 F-99.1 F) 98.0 F Temperature Source Temporal Pulse Rate (60-100) 82 Pulse Location Monitor Respiratory Rate (12-18) 22 H Respiratory rate source Observation Blood Pressure (90/60-120/80) 174/91 H Blood Pressure Mean 118 Source Monitor History Since Last Visit- (Skip if this is Patient's initial visit) Left Footwear Regular Shoe Right Footwear Regular Shoe Pain Scale: 0-10 Numeric Is Patient Pain Free? No BL feet -Description Sharp,Aching -Intensity 8 -Duration (hours) Acute -Pain Aggravating Factors Exercise/ Activity, Standing, Walking -Alleviating Factors/Interventions Medication -Effectiveness of Alleviating Factor/ Minimally Intervention effective WC - Nurse 1 - General Ulcer Measurement Start: 04/13/25 10:21 Freq: Status: Active Protocol: Activity Type Activity Date Activity User E-sign Co-sign Detail Recorded Client Recorded Date Recorded By Document 04/13/25 10:21 TS [id number] 04/13/25 10:30 TS 04/13/25 10:21 Wound Center Nurse 1 #13 left lateral lower leg -Combined with other wound No -Current Size (cm) - Length 0.1 -Current Size (cm) - Width 0.1 -Current Size (cm) - Depth 0.1 -Total Square Cm 0.01 -Date of Last Picture (Recall this 04/13/25 field) -Photo Taken Yes -Tunneling No -Undermining/Tunneling No -Exudate Amt Large -Exudate Type Serosanguineous -Granulation Amt Medium (34-66%) -Granulation Quality [place],Red -Slough/Fibrin Yes -Necrosis Amt Medium (34-66%) -Necrotic Tissue Type Adherent Slough -Structure Exposed None/Limited to Skin Breakdown -Texture (Adrianna-wound Skin Appearance) Assessed, Localized Edema -Moisture (Adrianna-wound Skin Appearance) Maceration, Weeping -Color (Adrianna-wound Skin Appearance) Assessed -Temperature (Adrianna-wound Skin No Abnormality Appearance) (Pt Warm) -Tenderness on Palpation (Adrianna-wound No Skin Appearance) -Ulcer Cleansing Rinsed/ Irrigated with Saline -Anesthetic Used 5% Lidocaine Gel Lower Limb Edema Present Yes Point of measurement (cm from the medial 54.6 instep) Point of Measurement (cm from the medial 30.4 instep) Point of measurement (cm from the medial 54.6 instep) Left Ankle (cm) 28.8 WC - Nurse 2 - General Ulcer CM Notes Start: 04/13/25 10:21 Freq: Status: Active Protocol: Activity Type Activity Date Activity User E-sign Co-sign Detail Recorded Client Recorded Date Recorded By Document 04/13/25 11:05 [id number] 04/13/25 11:11 04/13/25 11:05 Wound Center Nurse 2 #14 Right Lateral Leg -Time 11:06 -Correct Patient Yes -Correct Side, Site, Position Yes -Correct Procedure Yes -Procedure Performed Yes -Type of Procedure Debridement -Clinical Debridement Subcutaneous -Tissue Removed Subcutaneous -Post Debridement (cm) - Length 3.0 -Post Debridement (cm) - Width 3.0 -Post Debridement (cm) - Depth 0.1 -Total Square (Post) (cm) 9.00 -Area of Debridement (cm) - Length 3.0 -Area of Debridement (cm) - Width 3.0 -Total Square (Area) (cm) 9.00 -Tunneling No -Undermining/Tunneling No -Circular Undermining No -Wound/Ulcer Outcome Not Healed -Ulcer Cleansing Rinsed/ Irrigated with Saline -Foul Odor after Cleansing No -Bioengineered Tissue No -Bleeding Controlled with Pressure -Treatment Response Procedure Tolerated Well -Offloading No -Debridement - Subq, 1st 20sq cm Yes #13 left lateral lower leg -Time 11:05 -Correct Patient Yes -Correct Side, Site, Position Yes -Correct Procedure Yes -Procedure Performed Yes -Type of Procedure Debridement -Clinical Debridement Subcutaneous -Tissue Removed Subcutaneous -Post Debridement (cm) - Length 3.0 -Post Debridement (cm) - Width 2.0 -Post Debridement (cm) - Depth 0.1 -Total Square (Post) (cm) 6.00 -Area of Debridement (cm) - Length 3.0 -Area of Debridement (cm) - Width 2.0 -Total Square (Area) (cm) 6.00 -Tunneling No -Undermining/Tunneling No -Circular Undermining No -Wound/Ulcer Outcome Not Healed -Ulcer Cleansing Rinsed/ Irrigated with Saline -Foul Odor after Cleansing No -Bioengineered Tissue No -Bleeding Controlled with Pressure -Treatment Response Procedure Tolerated Well -Offloading No -Debridement - Subq, 1st 20sq cm No Pain Scale: 0-10 Numeric Is Patient Pain Free? Yes - Nurse 3 - General Ulcer D/C NN Start: 04/13/25 10:21 Freq: Status: Active Protocol: Activity Type Activity Date Activity User E-sign Co-sign Detail Recorded Client Recorded Date Recorded By Document 04/13/25 11:27 [id number] 04/13/25 11:52 04/13/25 11:27 Wound Care Center Nurse 3 #14 Right Lateral Leg -Primary Dressing Applied Fibracol Plus 4x4,Optilok 5x5 1/2 -Fibracol Plus 4x4 1 -Optilok 5x5 1/2 1 #13 left lateral lower leg -Primary Dressing Applied Fibracol Plus 4x4,Optilok 5x5 1/2 -Fibracol Plus 4x4 0 -Optilok 5x5 1/2 1 BLE -Multi-Layered Wrap Application Unna Boot - Bilateral -Unna- Bilat (Qty applied) 1 Pain Scale: 0-10 Numeric Is Patient Pain Free? Yes - Visit Discharge Discharge Condition Stable Ambulatory Status Ambulatory, Walker Transportation Private Auto Accompanied by Medication Reconcilliation completed & No provided to patient/care provider Clinical Summary of Care Provided Yes Assessment/Plan Assessment/Plan (1) Non-pressure chronic ulcer left lower leg, limited to breakdown skin: CODE(S): L97.921 - Non-pressure chronic ulcer of unspecified part of left lower leg limited to breakdown of skin (2) Venous insufficiency: CODE(S): I87.2 - Venous insufficiency (chronic) (peripheral) (3) Edema of both lower extremities: CODE(S): R60.0 - Localized edema (4) Lymphedema: CODE(S): I89.0 - Lymphedema, not elsewhere classified (5) Essential hypertension: CODE(S): I10 - Essential (primary) hypertension (6) Morbid obesity with BMI of 45.0-49.9, adult: CODE(S): E66.01 - Morbid (severe) obesity due to excess calories; Z68.42 - Body mass index [BMI] 45.0-49.9, adult (7) Debility: CODE(S): R53.81 - Other malaise (8) Osteoarthritis: CODE(S): M19.90 - Unspecified osteoarthritis, unspecified site QUALIFIERS: Osteoarthritis location: multiple joints Osteoarthritis type: primary Qualified Code(s): M15.9 - Polyosteoarthritis, unspecified (9) COPD (chronic obstructive pulmonary disease): CODE(S): J44.9 - Chronic obstructive pulmonary disease, unspecified QUALIFIERS: COPD type: unspecified COPD Qualified Code(s): J44.9 - Chronic obstructive pulmonary disease, unspecified (10) Chronic hypoxemic respiratory failure: CODE(S): J96.11 - Chronic respiratory failure with hypoxia (11) Pulmonary hypertension: CODE(S): I27.20 - Pulmonary hypertension, unspecified (12) Hypothyroidism: CODE(S): E03.9 - Hypothyroidism, unspecified QUALIFIERS: Hypothyroidism type: unspecified Qualified Code(s): E03.9 - Hypothyroidism, unspecified (13) Type 2 diabetes mellitus: CODE(S): E11.9 - Type 2 diabetes mellitus without complications QUALIFIERS: Diabetes mellitus technician terminal and repeater insulin use: without technician terminal and repeater use Diabetes mellitus complication status: with other specified complication Qualified Code(s): E11.69 - Type 2 diabetes mellitus with other specified complication (14) DOLORES (obstructive sleep apnea): CODE(S): G47.33 - Obstructive sleep apnea (adult) (pediatric) (15) Cellulitis of left lower extremity: CODE(S): L03.116 - Cellulitis of left lower limb (16) Venous ulcer with fat layer exposed: CODE(S): I83.009 - Varicose veins of unspecified lower extremity with ulcer of unspecified site; L97.902 - Non-pressure chronic ulcer of unspecified part of unspecified lower leg with fat layer exposed (17) Venous stasis ulcer of right calf with fat layer exposed: CODE(S): I83.012 - Varicose veins of right lower extremity with ulcer of calf; L97.212 - Non-pressure chronic ulcer of right calf with fat layer exposed QUALIFIERS: Varicose vein presence: with varicose veins Qualified Code(s): I83.012 - Varicose veins of right lower extremity with ulcer of calf; L97.212 - Non-pressure chronic ulcer of right calf with fat layer exposed (18) Venous stasis ulcer of left calf with fat layer exposed: CODE(S): I83.022 - Varicose veins of left lower extremity with ulcer of calf; L97.222 - Non-pressure chronic ulcer of left calf with fat layer exposed QUALIFIERS: Varicose vein presence: with varicose veins Qualified Code(s): I83.022 - Varicose veins of left lower extremity with ulcer of calf; L97.222 - Non-pressure chronic ulcer of left calf with fat layer exposed PLAN: Plan Evaluation and debridement performed today in clinic as annotated above. At home wound-care instructions: Will apply Aquacel extra and superabsorber to left lateral leg and to right lateral leg and wrap with Kerlix and secure with KATELYNN bandage and change daily. She was instructed to keep dressings clean and dry. Will have her use lymphedema pumps for 60 minutes 2-3 times daily. She has been noncompliant with pumps and was encouraged to increase frequency. Also, encouraged to take diuretic daily. Off-loading: The patient was instructed to avoid pressure and friction on the affected areas. Reposition every 2 hours at minimum. Avoid prolonged standing and/or dangling of legs. When seated, feet should be elevated at chest level. Frequent ambulation is encouraged. Diet: Patient encouraged to increase protein intake while taking caution to avoid high carbohydrate and/or sugar intake. Encouraged weight loss. Labs/cultures/imaging: Wound Culture of left allen ulcer showed pseudomonas and MRSA. Ciprofloxacin prescribed. Venous ultrasound showed incompetence of veins of left lower extremity and vascular performed an ablation on 07/27/2024. Culture showed E. faecalis, anaerobic bacteria and Pseudomonas advised to restart Ciprofloxacin and Flagyl was prescribed for Anaerobic bacteria. 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 She has been referred to infectious disease and they will see her 09/27/2024. We are going to try treating her with Bactrim DS until she sees Dr. Johnson. She is tolerating this. Completed Bactrim DS. Completed IV Gentamicin. Wound culture taken was positive for multiple bacteria. Anaerobic culture is still pending. She will complete treatment on Levofloxacin and Keflex based on sensitivities. Repeat venous testing did not show thrombosis or failure of previous venous ablation. Encouraged her to get her CPAP mask to improve DOLORES and pulmonary HTN treatment compliance which is adding to her decompensated lymphedema. Follow-up: Will discharge her from treatment and have her follow up as needed if she has increased drainage or development of ulcers. Return sooner or report to the emergency room should symptoms worsen, or new symptoms arise. Note: [employer] speech recognition platform architect software was used to create portions of this document. Sound-alike and misspelled words, as well as other platform architect errors may be contained in the documentation.
[2025-04-20 11:45] VITALS: BP 147/67; PULSE 66; RESP 18; TEMP 36.1; BMI 47.4
--- NOTE | 2025-04-20 15:20 | PN.PCM_ITS ---
History of Present Illness Date of Service: 04/20/25 Chief Complaint: ulcers b/l LE, bilateral lower extremity swelling History of Wound: Liz is a pleasant 75 yo woman that presents to the wound center for bilateral lower extremity edema and blisters and drainage of her bilateral lower extremities. She has had increased edema the last month and her legs started seeping a few weeks ago. She has been wearing her tubigrip compression and had been using the lymphedema pumps but they continue to be s eeping fluid. She tries to elevate her legs when she is sitting but is not always consistent with doing this. She has been wrapping her leg with gauze and ABDs when it is seeping but otherwise has not been doing any regular dressings. Patient has been treated at the wound center in the past for similar wounds, most recently January 2025. She has also been seen in the vascular surgery clinic where she was evaluated her for BLE DVT and venous insufficiency. 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 GSV ablation has been done to both lower legs. She has lymphedema pumps and has been using these. Last venous study was 11/15/2024. Last A1C 02/07/25 was 6.4%. Patient's medical history is also significant for CHF, COPD, T2DM, lymphedema. She has a CPAP but has not been using this due to needing a new mask. Subjective Subjective Liz returns today for evaluation and debridement of ulcers b/l lower extremities and lymphedema. There is improvement in edema and the ulcers are smaller. She denies fever, chills, odor. Objective Data Objective Data Vital Signs: Vital Signs Temp Pulse Resp BP O2 Del Method 97 F L 66 18 147/67 H Room Air 04/20/25 11:45 04/20/25 11:45 04/20/25 11:45 04/20/25 11:45 04/20/25 11:45 Oxygen Delivery Method Room Air Weight: 133.356 kg Body Mass Index (BMI) 47.4 Physical Exam Const alert, oriented x3, no apparent distress and healthy appearing General Appearance: cooperative; Negative for combative or lethargic Orientation / Consciousness: awake Exam Limitations: no limitations Nutritional Appearance: obese HEENT normocephalic and head/scalp atraumatic Eyes EOMs intact bilaterally General Eye: normal appearance of both eyes Neck full ROM General: trachea midline Lymph Lymphatic: lymphedema severe and pitting Resp normal respiratory effort and no use of accessory muscles Effort and Inspection: Negative for labored, stridor or audible wheezes Cardio regular rate and regular rhythm Back/Spine Cervical Spine: cervical ROM normal Extremity full ROM, normal capillary refill and no clubbing, cyanosis or edema General Extremity: edema bilateral lower extremity Details: severe (with skin changes associated with lymphedema, thickened nodular appearance from mid allen to ankle) Skin General Skin Exam: erythema, venous stasis and dermatitis Wounds: wounds noted Wound Narrative: as in clinical panel, erythema of right and left lateral lower legs and heavy serous drainage, superficial ulcers present bilaterally in clusters, nodular appearance of skin associated with lymphedema bilaterally Neuro oriented x3, CN's II-XII intact bilaterally, no focal motor deficits and no sensory deficits noted Psych thought process normal, cooperative, affect normal, speech normal and activity/motor behavior normal Debridement Note Debridement Note Wound debrided: left lateral Laterality: Left Type of Debridement: Selective debridement Anesthesia Used: 5% Lidocaine Gel Depth: Down to and including healthy tissue and in the subcutaneous layer Percentage of wound debrided: 100 Instrument Used: - (gauze) Severity: Fat Layer Exposed Amount of bleeding with debridement: Mild Bleeding Controlled with: Compression and gauze Patient tolerated procedure: Patient tolerated procedure well Post-Debridement Measurements and Additional Note: Post-Debridement Measurements/Treatment WC - Nurse 1 - General Ulcer Assessment Start: 04/13/25 10:21 Freq: Status: Active Protocol: [email or web address] Activity Type Activity Date Activity User E-sign Co-sign Detail Recorded Client Recorded Date Recorded By Document 04/13/25 10:21 TS [id number] 04/13/25 10:30 TS Document 04/20/25 11:45 RB [id number] 04/20/25 11:47 RB 04/13/25 04/20/25 10:21 11:45 - Today's Visit Information Type of service Initial Visit Follow-up Visit (Physician/PUBLIC INFORMATION RELATIONS MANAGER ) Arrival Mode Ambulatory, Wheelchair Walker Transfer Assistance Manual Accompanied by Patient Identification Verified (Name & Yes Yes ) Patient Requires Transmission-Based No No Precautions Safety Precautions NA Height and Weight Height 5 ft 6 in Weight 133.356 kg Weight in Pounds 294.0 lbs Weight Measurement Method Stated by Patient Body Mass Index (BMI) 47.4 47.4 BMI Classification Obese Obese Vital Signs Temperature (97.8 F-99.1 F) 98.0 F 97 F L Temperature Source Temporal Temporal Pulse Rate (60-100) 82 66 Pulse Location Monitor Monitor Respiratory Rate (12-18) 22 H 18 Respiratory rate source Observation Observation Oxygen Delivery Method Room Air Blood Pressure (90/60-120/80) 174/91 H 147/67 H Blood Pressure Mean (mm Hg) 118 93 Source Monitor Monitor Position Sitting Blood Pressure Location Left Arm History Since Last Visit- (Skip if this is Patient's initial visit) Have you changed medications since your No last visit? Any new allergies or adverse reactions No Had a fall/change in ADL's that may No increase risk of falls Signs or symptoms of abuse and/or No neglect since last visit Have you been in the hospital since your No last visit? Has dressing in place as prescribed Yes Has compression in place as prescribed N/A Has offloadiing in place as prescribed N/A Experienced any changes in pain level or No management Left Footwear Regular Shoe Regular Shoe Right Footwear Regular Shoe Regular Shoe Pain Scale: 0-10 Numeric Is Patient Pain Free? No Yes BL feet -Description Sharp,Aching -Intensity 8 -Duration (hours) Acute -Pain Aggravating Factors Exercise/ Activity, Standing, Walking -Alleviating Factors/Interventions Medication -Effectiveness of Alleviating Factor/ Minimally Intervention effective WC - Nurse 1 - General Ulcer Measurement Start: 04/13/25 10:21 Freq: Status: Active Protocol: Activity Type Activity Date Activity User E-sign Co-sign Detail Recorded Client Recorded Date Recorded By Document 04/13/25 10:21 TS [id number] 04/13/25 10:30 TS Document 04/20/25 11:45 RB [id number] 04/20/25 11:47 RB 04/13/25 04/20/25 10:21 11:45 Wound Center Nurse 1 #14 Right Lateral Leg -Combined with other wound No -Current Size (cm) - Length 0.1 -Current Size (cm) - Width 0.1 -Current Size (cm) - Depth 0.1 -Total Square Cm 0.01 -Photo Taken Yes -Tunneling No -Undermining/Tunneling No -Circular Undermining No -Exudate Amt Medium -Exudate Type Serosanguineous -Wound Margin Indistinct, Non -Visible -Granulation Amt Medium (34-66%) -Granulation [place] -Slough/Fibrin Yes -Necrosis Amt Medium (34-66%) -Necrotic Tissue Type Adherent Slough -Structure Exposed N/A -Texture (Adrianna-wound Skin Appearance) Assessed -Moisture (Adrianna-wound Skin Appearance) Maceration -Color (Adrianna-wound Skin Appearance) Assessed -Temperature (Adrianna-wound Skin No Abnormality Appearance) (Pt Warm) -Tenderness on Palpation (Adrianna-wound No Skin Appearance) -Ulcer Cleansing Wound Cleanser -Foul Odor after Cleansing No -Anesthetic Used 5% Lidocaine Gel #13 left lateral lower leg -Combined with other wound No No -Current Size (cm) - Length 0.1 0.1 -Current Size (cm) - Width 0.1 0.1 -Current Size (cm) - Depth 0.1 0.1 -Total Square Cm 0.01 0.01 -Date of Last Picture (Recall this 04/13/25 field) -Photo Taken Yes Yes -Tunneling No No -Undermining/Tunneling No No -Circular Undermining No -Exudate Amt Large Medium -Exudate Type Serosanguineous Serosanguineous -Wound Margin Indistinct, Non -Visible -Granulation Amt Medium (34-66%) Medium (34-66%) -Granulation [place] -Slough/Fibrin Yes Yes -Necrosis Amt Medium (34-66%) Medium (34-66%) -Necrotic Tissue Type Adherent Slough Adherent Slough -Structure Exposed None/Limited to N/A Skin Breakdown -Texture (Adrianna-wound Skin Appearance) Assessed, Assessed Localized Edema -Moisture (Adrianna-wound Skin Appearance) Maceration, Maceration Weeping -Color (Adrianna-wound Skin Appearance) Assessed Assessed -Temperature (Adrianna-wound Skin No Abnormality No Abnormality Appearance) (Pt Warm) (Pt Warm) -Tenderness on Palpation (Adrianna-wound No No Skin Appearance) -Ulcer Cleansing Rinsed/ Wound Cleanser Irrigated with Saline -Foul Odor after Cleansing No -Anesthetic Used 5% Lidocaine 5% Lidocaine Gel Gel Lower Limb Edema Present Yes Yes Right Calf (cm) 56.5 Point of measurement (cm from the medial 54.6 instep) Right Ankle (cm) 28 Point of Measurement (cm from the medial 30.4 instep) Left Calf (cm) 56.5 Point of measurement (cm from the medial 54.6 instep) Left Ankle (cm) 28.8 29 - Nurse 2 - General Ulcer CM Notes Start: 04/13/25 10:21 Freq: Status: Active Protocol: Activity Type Activity Date Activity User E-sign Co-sign Detail Recorded Client Recorded Date Recorded By Document 04/13/25 11:05 [id number] 04/13/25 11:11 Document 04/20/25 11:57 [id number] 04/20/25 12:03 04/13/25 04/20/25 11:05 11:57 Wound Center Nurse 2 #14 Right Lateral Leg -Time 11:06 12:02 -Correct Patient Yes Yes -Correct Side, Site, Position Yes Yes -Correct Procedure Yes Yes -Procedure Performed Yes Yes -Type of Procedure Debridement Debridement -Clinical Debridement Subcutaneous Epidermis / Dermis -Tissue Removed Subcutaneous Epidermis, Dermis -Post Debridement (cm) - Length 3.0 1.7 -Post Debridement (cm) - Width 3.0 0.7 -Post Debridement (cm) - Depth 0.1 0.1 -Total Square (Post) (cm) 9.00 1.19 -Area of Debridement (cm) - Length 3.0 1.7 -Area of Debridement (cm) - Width 3.0 0.7 -Total Square (Area) (cm) 9.00 1.19 -Tunneling No No -Undermining/Tunneling No No -Circular Undermining No No -Wound/Ulcer Outcome Not Healed Not Healed -Ulcer Cleansing Rinsed/ Rinsed/ Irrigated with Irrigated with Saline Saline -Foul Odor after Cleansing No No -Bioengineered Tissue No No -Bleeding Controlled with Pressure Pressure -Treatment Response Procedure Procedure Tolerated Well Tolerated Well -Offloading No No -Debridement - Open, 1st 20sq cm No -Debridement - Subq, 1st 20sq cm Yes #13 left lateral lower leg -Time 11:05 11:58 -Correct Patient Yes Yes -Correct Side, Site, Position Yes Yes -Correct Procedure Yes Yes -Procedure Performed Yes Yes -Type of Procedure Debridement Debridement -Clinical Debridement Subcutaneous Epidermis / Dermis -Tissue Removed Subcutaneous Epidermis, Dermis -Post Debridement (cm) - Length 3.0 0.5 -Post Debridement (cm) - Width 2.0 0.5 -Post Debridement (cm) - Depth 0.1 0.1 -Total Square (Post) (cm) 6.00 0.25 -Area of Debridement (cm) - Length 3.0 0.5 -Area of Debridement (cm) - Width 2.0 0.5 -Total Square (Area) (cm) 6.00 0.25 -Tunneling No No -Undermining/Tunneling No No -Circular Undermining No No -Wound/Ulcer Outcome Not Healed Not Healed -Ulcer Cleansing Rinsed/ Rinsed/ Irrigated with Irrigated with Saline Saline -Foul Odor after Cleansing No No -Bioengineered Tissue No No -Bleeding Controlled with Pressure Pressure -Treatment Response Procedure Procedure Tolerated Well Tolerated Well -Offloading No -Debridement - Open, 1st 20sq cm Yes -Debridement - Subq, 1st 20sq cm No Pain Scale: 0-10 Numeric Is Patient Pain Free? Yes Yes - Nurse 3 - General Ulcer D/C NN Start: 04/13/25 10:21 Freq: Status: Active Protocol: Activity Type Activity Date Activity User E-sign Co-sign Detail Recorded Client Recorded Date Recorded By Document 04/13/25 11:27 TS [id number] 04/13/25 11:52 TS Document 04/20/25 14:32 RB [id number] 04/20/25 14:33 RB 04/13/25 04/20/25 11:27 14:32 Wound Care Center Nurse 3 #14 Right Lateral Leg -Primary Dressing Applied Fibracol Plus Fibracol Plus 4x4,Optilok 5x5 4x4,Optilok 5x5 1/2 1/2 -Primary Dressing Covered/Secured with Dry Gauze & Roll Gauze -Fibracol Plus 4x4 1 1 -Optilok 5x5 1/2 1 1 #13 left lateral lower leg -Primary Dressing Applied Fibracol Plus Optilok 5x5 1/2 4x4,Optilok 5x5 1/2 -Other Dressing fibracol -Primary Dressing Covered/Secured with Dry Gauze & Roll Gauze -Fibracol Plus 4x4 0 -Optilok 5x5 1/2 1 1 BLE -Multi-Layered Wrap Application Unna Boot - Bilateral -Tubular Bandage Single Layer -Size of Tubigrip Used Size F -Size F ($) 2 -Unna- Bilat (Qty applied) 1 Pain Scale: 0-10 Numeric Is Patient Pain Free? Yes Yes WC - Visit Discharge Discharge Condition Stable Stable Ambulatory Status Ambulatory, Wheelchair Walker Transportation Private Auto Private Auto Accompanied by Medication Reconcilliation completed & No No provided to patient/care provider Clinical Summary of Care Provided Yes Yes Additional Wound Wound debrided: right lateral LE Laterality: Right Type of Debridement: Selective debridement Anesthesia Used: 5% Lidocaine Gel Depth: Down to and including healthy tissue and in the subcutaneous layer Percentage of wound debrided: 100 Instrument Used: - (gauze) Severity: Fat Layer Exposed Amount of bleeding with debridement: Mild Bleeding Controlled with: Compression and gauze Patient tolerated procedure: Patient tolerated procedure well Assessment/Plan Assessment/Plan (1) Non-pressure chronic ulcer left lower leg, limited to breakdown skin: CODE(S): L97.921 - Non-pressure chronic ulcer of unspecified part of left lower leg limited to breakdown of skin (2) Venous insufficiency: CODE(S): I87.2 - Venous insufficiency (chronic) (peripheral) (3) Edema of both lower extremities: CODE(S): R60.0 - Localized edema (4) Lymphedema: CODE(S): I89.0 - Lymphedema, not elsewhere classified (5) Essential hypertension: CODE(S): I10 - Essential (primary) hypertension (6) Morbid obesity with BMI of 45.0-49.9, adult: CODE(S): E66.01 - Morbid (severe) obesity due to excess calories; Z68.42 - Body mass index [BMI] 45.0-49.9, adult (7) Debility: CODE(S): R53.81 - Other malaise (8) Osteoarthritis: CODE(S): M19.90 - Unspecified osteoarthritis, unspecified site QUALIFIERS: Osteoarthritis location: multiple joints Osteoarthritis type: primary Qualified Code(s): M15.9 - Polyosteoarthritis, unspecified (9) COPD (chronic obstructive pulmonary disease): CODE(S): J44.9 - Chronic obstructive pulmonary disease, unspecified QUALIFIERS: COPD type: unspecified COPD Qualified Code(s): J44.9 - Chronic obstructive pulmonary disease, unspecified (10) Chronic hypoxemic respiratory failure: CODE(S): J96.11 - Chronic respiratory failure with hypoxia (11) Pulmonary hypertension: CODE(S): I27.20 - Pulmonary hypertension, unspecified (12) Hypothyroidism: CODE(S): E03.9 - Hypothyroidism, unspecified QUALIFIERS: Hypothyroidism type: unspecified Qualified Code(s): E03.9 - Hypothyroidism, unspecified (13) Type 2 diabetes mellitus: CODE(S): E11.9 - Type 2 diabetes mellitus without complications QUALIFIERS: Diabetes mellitus ad terminal makeup operator insulin use: without penitentiary use Diabetes mellitus complication status: with other specified complication Qualified Code(s): E11.69 - Type 2 diabetes mellitus with other specified complication (14) DOLORES (obstructive sleep apnea): CODE(S): G47.33 - Obstructive sleep apnea (adult) (pediatric) (15) Cellulitis of left lower extremity: CODE(S): L03.116 - Cellulitis of left lower limb (16) Venous ulcer with fat layer exposed: CODE(S): I83.009 - Varicose veins of unspecified lower extremity with ulcer of unspecified site; L97.902 - Non-pressure chronic ulcer of unspecified part of unspecified lower leg with fat layer exposed (17) Venous stasis ulcer of right calf with fat layer exposed: CODE(S): I83.012 - Varicose veins of right lower extremity with ulcer of calf; L97.212 - Non-pressure chronic ulcer of right calf with fat layer exposed QUALIFIERS: Varicose vein presence: with varicose veins Qualified Code(s): I83.012 - Varicose veins of right lower extremity with ulcer of calf; L97.212 - Non-pressure chronic ulcer of right calf with fat layer exposed (18) Venous stasis ulcer of left calf with fat layer exposed: CODE(S): I83.022 - Varicose veins of left lower extremity with ulcer of calf; L97.222 - Non-pressure chronic ulcer of left calf with fat layer exposed QUALIFIERS: Varicose vein presence: with varicose veins Qualified Code(s): I83.022 - Varicose veins of left lower extremity with ulcer of calf; L97.222 - Non-pressure chronic ulcer of left calf with fat layer exposed PLAN: Plan Evaluation and debridement performed today in clinic as annotated above. At home wound-care instructions: Will apply Fibracol and super absorbers to left lateral leg and to right lateral leg changed daily. She was instructed to keep dressings clean and dry. Will have her use lymphedema pumps for 60 minutes 2-3 times daily. She has been noncompliant with pumps and was encouraged to increase frequency. Also, encouraged to take diuretic daily. Prescription for Bactrim DS and Keflex given based on previous cultures/treatment and also Fluconazole given for yeast dermatitis in her groin areas. Off-loading: The patient was instructed to avoid pressure and friction on the affected areas. Reposition every 2 hours at minimum. Avoid prolonged standing and/or dangling of legs. When seated, feet should be elevated at chest level. Frequent ambulation is encouraged. Diet: Patient encouraged to increase protein intake while taking caution to avoid high carbohydrate and/or sugar intake. Encouraged weight loss. Labs/cultures/imaging: Most recent venous doppler 10/2024 and previous history of ablation b/l. Echo 09/2024 showed EF 65% with stage 1 diastolic dysfunction. Encouraged her to get her CPAP mask to improve DOLORES and pulmonary HTN treatment compliance which is adding to her decompensated lymphedema. Follow-up: Return 2 weeks or call wound center to be seen sooner or report to the emergency room should symptoms worsen, or new symptoms arise. Note: [employer] speech recognition strawberry grower software was used to create portions of this document. Sound-alike and misspelled words, as well as other strawberry grower errors may be contained in the documentation.
== END 2025-04-20 23:59 | disposition home or self-care (01) ==
LOC: WC 11:00
PROVIDERS: PCP Internal Medicine; Referring Provider Family Medicine; Visit Provider Family Medicine
DX: I83.022 Varicose veins of left lower extremity with ulcer of calf (principal); L97.222 Non-pressure chronic ulcer of left calf with fat layer exposed; L97.212 Non-pressure chronic ulcer of right calf with fat layer exposed; I83.012 Varicose veins of right lower extremity with ulcer of calf; J96.11 Chronic respiratory failure with hypoxia; I11.0 Hypertensive heart disease with heart failure; I50.9 Heart failure, unspecified; E66.01 Morbid (severe) obesity due to excess calories; Z68.42 Body mass index [BMI] 45.0-49.9, adult; E11.59 Type 2 diabetes mellitus with other circulatory complications; E11.40 Type 2 diabetes mellitus with diabetic neuropathy, unspecified; Z87.891 Personal history of nicotine dependence; I87.2 Venous insufficiency (chronic) (peripheral); I89.0 Lymphedema, not elsewhere classified; R60.0 Localized edema; M79.89 Other specified soft tissue disorders
CPT/HCPCS: 11042; 29580; 97597; 99213; G0463

== ENCOUNTER 2025-05-04 10:56 | Outpatient (RCR) | payer MEDICARE, MEDICAID, SELFPAY ==
[2025-05-04 11:27] VITALS: BP 198/87; PULSE 98; RESP 18; TEMP 35.9
--- NOTE | 2025-05-04 14:55 | PCM.WC.PN ---
History of Present Illness Date of Service: 05/04/25 Chief Complaint: ulcers b/l LE, bilateral lower extremity swelling History of Wound: Liz is a pleasant 75 yo woman that presents to the wound center for bilateral lower extremity edema and blisters and drainage of her bilateral lower extremities. She has had increased edema the last month and her legs started seeping a few weeks ago. She has been wearing her tubigrip compression and had been using the lymphedema pumps but they continue to be seeping fluid. She tries to elevate her legs when she is sitting but is not always consistent with doing this. She has been wrapping her leg with gauze and ABDs when it is seeping but otherwise has not been doing any regular dressings. Patient has been treated at the wound center in the past for similar wounds, most recently January 2025. She has also been seen in the vascular surgery clinic where she was evaluated her for BLE DVT and venous insufficiency. 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 GSV ablation has been done to both lower legs. She has lymphedema pumps and has been using these. Last venous study was 11/15/2024. Last A1C 02/07/25 was 6.4%. Patient's medical history is also significant for CHF, COPD, T2DM, lymphedema. She has a CPAP but has not been using this due to needing a new mask. Subjective Subjective Liz returns today for evaluation and debridement of ulcers b/l lower extremities and lymphedema. There is improvement in edema and the ulcers are smaller. Left lower extremity appears healed but still is seeping serous fluid laterally. She denies fever, chills, odor. Objective Data Objective Data Vital Signs: Vital Signs Temp Pulse Resp BP O2 Del Method 96.7 F L 98 18 198/87 H Room Air 05/04/25 11:27 05/04/25 11:27 05/04/25 11:27 05/04/25 11:27 05/04/25 11:27 Oxygen Delivery Method Room Air Physical Exam Const alert, oriented x3, no apparent distress and healthy appearing General Appearance: cooperative; Negative for combative or lethargic Orientation / Consciousness: awake Exam Limitations: no limitations Nutritional Appearance: obese HEENT normocephalic and head/scalp atraumatic Eyes EOMs intact bilaterally General Eye: normal appearance of both eyes Neck full ROM General: trachea midline Lymph Lymphatic: lymphedema severe and pitting Resp normal respiratory effort and no use of accessory muscles Effort and Inspection: Negative for labored, stridor or audible wheezes Cardio regular rate and regular rhythm Back/Spine Cervical Spine: cervical ROM normal Extremity full ROM, normal capillary refill and no clubbing, cyanosis or edema General Extremity: edema bilateral lower extremity Details: severe (with skin changes associated with lymphedema, thickened nodular appearance from mid allen to ankle) Skin General Skin Exam: erythema, venous stasis and dermatitis Wounds: wounds noted Wound Narrative: as in clinical panel, erythema of right and left lateral lower legs and heavy serous drainage, superficial ulcers present right lateral lower leg only, nodular appearance of skin associated with lymphedema bilaterally Neuro oriented x3, CN's II-XII intact bilaterally, no focal motor deficits and no sensory deficits noted Psych thought process normal, cooperative, affect normal, speech normal and activity/motor behavior normal Debridement Note Debridement Note Wound debrided: right lateral Laterality: Right Type of Debridement: Selective debridement Anesthesia Used: 5% Lidocaine Gel Depth: Down to and including healthy tissue and in the subcutaneous layer Percentage of wound debrided: 100 Instrument Used: - (gauze) Severity: Fat Layer Exposed Amount of bleeding with debridement: Mild Bleeding Controlled with: Compression and gauze Patient tolerated procedure: Patient tolerated procedure well Post-Debridement Measurements and Additional Note: Post-Debridement Measurements/Treatment - Nurse 1 - General Ulcer Assessment Start: 05/04/25 11:27 Freq: Status: Active Protocol: [email or web address] Activity Type Activity Date Activity User E-sign Co-sign Detail Recorded Client Recorded Date Recorded By Document 05/04/25 11:27 [id number] 05/04/25 11:39 05/04/25 11:27 - Today's Visit Information Type of service 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 ) Arrival Mode Walker Patient Identification Verified (Name & Yes ) Patient Requires Transmission-Based No Precautions Safety Precautions Fall Prevention Vital Signs Temperature (97.8 F-99.1 F) 96.7 F L Temperature Source Temporal Pulse Rate (60-100) 98 Pulse Location Monitor Respiratory Rate (12-18) 18 Respiratory rate source Observation Oxygen Delivery Method Room Air Blood Pressure (90/60-120/80) 198/87 H Blood Pressure Mean (mm Hg) 124 Source Monitor Position Sitting Blood Pressure Location Left Arm History Since Last Visit- (Skip if this is Patient's initial visit) Have you changed medications since your No last visit? Any new allergies or adverse reactions No Had a fall/change in ADL's that may No increase risk of falls Signs or symptoms of abuse and/or No neglect since last visit Have you been in the hospital since your No last visit? Has dressing in place as prescribed Yes Has compression in place as prescribed Yes Has offloadiing in place as prescribed N/A Experienced any changes in pain level or No management Left Footwear Slipper Right Footwear Regular Shoe Pain Scale: 0-10 Numeric Is Patient Pain Free? Yes WC - Nurse 1 - General Ulcer Measurement Start: 05/04/25 11:27 Freq: Status: Active Protocol: Activity Type Activity Date Activity User E-sign Co-sign Detail Recorded Client Recorded Date Recorded By Document 05/04/25 11:27 TS [id number] 05/04/25 11:39 TS 05/04/25 11:27 Wound Center Nurse 1 #14 Right Lateral Leg -Combined with other wound No -Current Size (cm) - Length 1 -Current Size (cm) - Width 0.5 -Current Size (cm) - Depth 0.1 -Total Square Cm 0.5 -Date of Last Picture (Recall this 05/04/25 field) -Photo Taken Yes -Epithelialization Medium 34-66% -Tunneling No -Undermining/Tunneling No -Circular Undermining No -Exudate Amt None Present -Wound Margin Flat & Intact -Granulation Amt Medium (34-66%) -Granulation Quality [place],Red -Slough/Fibrin No -Necrosis Amt None Present (0 %) -Texture (Adrianna-wound Skin Appearance) Assessed, Localized Edema -Moisture (Adrianna-wound Skin Appearance) Assessed -Color (Adrianna-wound Skin Appearance) Assessed -Temperature (Adrianna-wound Skin No Abnormality Appearance) (Pt Warm) -Ulcer Cleansing Soap and Water -Foul Odor after Cleansing Yes -Anesthetic Used 5% Lidocaine Gel #13 left lateral lower leg -Combined with other wound No -Current Size (cm) - Length 0.1 -Current Size (cm) - Width 0.1 -Current Size (cm) - Depth 0.1 -Total Square Cm 0.01 -Date of Last Picture (Recall this 05/04/25 field) -Photo Taken Yes -Tunneling No -Undermining/Tunneling No -Circular Undermining No -Exudate Amt None Present -Wound Margin Flat & Intact -Granulation Amt Medium (34-66%) -Granulation Quality [place],Red -Slough/Fibrin No -Structure Exposed None/Limited to Skin Breakdown -Texture (Adrianna-wound Skin Appearance) Assessed, Localized Edema -Moisture (Adrianna-wound Skin Appearance) Assessed -Color (Adrianna-wound Skin Appearance) Assessed -Temperature (Adrianna-wound Skin No Abnormality Appearance) (Pt Warm) -Ulcer Cleansing Soap and Water -Foul Odor after Cleansing No Point of measurement (cm from the medial 50 instep) Point of Measurement (cm from the medial 30 instep) Point of measurement (cm from the medial 49 instep) Point of Measurement (cm from the medial 30 instep) WC - Nurse 2 - General Ulcer CM Notes Start: 05/04/25 11:27 Freq: Status: Active Protocol: Activity Type Activity Date Activity User E-sign Co-sign Detail Recorded Client Recorded Date Recorded By Document 05/04/25 11:55 [id number] 05/04/25 12:01 05/04/25 11:55 Wound Center Nurse 2 #14 Right Lateral Leg -Time 11:57 -Correct Patient Yes -Correct Side, Site, Position Yes -Correct Procedure Yes -Procedure Performed Yes -Type of Procedure Debridement -Clinical Debridement Epidermis / Dermis -Tissue Removed Epidermis, Dermis -Post Debridement (cm) - Length 1.1 -Post Debridement (cm) - Width 1.0 -Post Debridement (cm) - Depth 0.1 -Total Square (Post) (cm) 1.10 -Area of Debridement (cm) - Length 1.1 -Area of Debridement (cm) - Width 1.0 -Total Square (Area) (cm) 1.10 -Tunneling No -Undermining/Tunneling No -Circular Undermining No -Wound/Ulcer Outcome Not Healed -Ulcer Cleansing Rinsed/ Irrigated with Saline -Foul Odor after Cleansing No -Bioengineered Tissue No -Bleeding Controlled with Pressure -Treatment Response Procedure Tolerated Well -Debridement - Open, 1st 20sq cm Yes #13 left lateral lower leg -Time 11:57 -Correct Patient Yes -Correct Side, Site, Position Yes -Correct Procedure No -Procedure Performed No -Tunneling No -Undermining/Tunneling No -Circular Undermining No -Wound/Ulcer Outcome Healed- Epithelialized -Ulcer Cleansing Not Cleansed -Foul Odor after Cleansing No -Bioengineered Tissue No -Bleeding Controlled with NA -Offloading No Pain Scale: 0-10 Numeric Is Patient Pain Free? Yes WC - Nurse 3 - General Ulcer D/C NN Start: 05/04/25 11:27 Freq: Status: Active Protocol: Activity Type Activity Date Activity User E-sign Co-sign Detail Recorded Client Recorded Date Recorded By Document 05/04/25 12:11 [id number] 05/04/25 12:13 05/04/25 12:11 Wound Care Center Nurse 3 #14 Right Lateral Leg -Primary Dressing Applied Fibracol Plus 4x4,Optilok 5x5 1/2 -Other Dressing kerlix -Primary Dressing Covered/Secured with Secured with Tape -Fibracol Plus 4x4 1 -Optilok 5x5 1/2 1 BLE -Lotion applied to leg before Yes compression wrap -Tubular Bandage Single Layer -Size of Tubigrip Used Size F -Size F ($) 2 Pain Scale: 0-10 Numeric Is Patient Pain Free? Yes WC - Visit Discharge Discharge Condition Stable Ambulatory Status Walker Medication Reconcilliation completed & No provided to patient/care provider Clinical Summary of Care Provided Yes Assessment/Plan Assessment/Plan (1) Non-pressure chronic ulcer left lower leg, limited to breakdown skin: CODE(S): L97.921 - Non-pressure chronic ulcer of unspecified part of left lower leg limited to breakdown of skin (2) Venous insufficiency: CODE(S): I87.2 - Venous insufficiency (chronic) (peripheral) (3) Edema of both lower extremities: CODE(S): R60.0 - Localized edema (4) Lymphedema: CODE(S): I89.0 - Lymphedema, not elsewhere classified (5) Essential hypertension: CODE(S): I10 - Essential (primary) hypertension (6) Morbid obesity with BMI of 45.0-49.9, adult: CODE(S): E66.01 - Morbid (severe) obesity due to excess calories; Z68.42 - Body mass index [BMI] 45.0-49.9, adult (7) Debility: CODE(S): R53.81 - Other malaise (8) Osteoarthritis: CODE(S): M19.90 - Unspecified osteoarthritis, unspecified site QUALIFIERS: Osteoarthritis location: multiple joints Osteoarthritis type: primary Qualified Code(s): M15.9 - Polyosteoarthritis, unspecified (9) COPD (chronic obstructive pulmonary disease): CODE(S): J44.9 - Chronic obstructive pulmonary disease, unspecified QUALIFIERS: COPD type: unspecified COPD Qualified Code(s): J44.9 - Chronic obstructive pulmonary disease, unspecified (10) Chronic hypoxemic respiratory failure: CODE(S): J96.11 - Chronic respiratory failure with hypoxia (11) Pulmonary hypertension: CODE(S): I27.20 - Pulmonary hypertension, unspecified (12) Hypothyroidism: CODE(S): E03.9 - Hypothyroidism, unspecified QUALIFIERS: Hypothyroidism type: unspecified Qualified Code(s): E03.9 - Hypothyroidism, unspecified (13) Type 2 diabetes mellitus: CODE(S): E11.9 - Type 2 diabetes mellitus without complications QUALIFIERS: Diabetes mellitus half-way insulin use: without termination clerk use Diabetes mellitus complication status: with other specified complication Qualified Code(s): E11.69 - Type 2 diabetes mellitus with other specified complication (14) DOLORES (obstructive sleep apnea): CODE(S): G47.33 - Obstructive sleep apnea (adult) (pediatric) (15) Cellulitis of left lower extremity: CODE(S): L03.116 - Cellulitis of left lower limb (16) Venous ulcer with fat layer exposed: CODE(S): I83.009 - Varicose veins of unspecified lower extremity with ulcer of unspecified site; L97.902 - Non-pressure chronic ulcer of unspecified part of unspecified lower leg with fat layer exposed (17) Venous stasis ulcer of right calf with fat layer exposed: CODE(S): I83.012 - Varicose veins of right lower extremity with ulcer of calf; L97.212 - Non-pressure chronic ulcer of right calf with fat layer exposed QUALIFIERS: Varicose vein presence: with varicose veins Qualified Code(s): I83.012 - Varicose veins of right lower extremity with ulcer of calf; L97.212 - Non-pressure chronic ulcer of right calf with fat layer exposed (18) Venous stasis ulcer of left calf with fat layer exposed: CODE(S): I83.022 - Varicose veins of left lower extremity with ulcer of calf; L97.222 - Non-pressure chronic ulcer of left calf with fat layer exposed QUALIFIERS: Varicose vein presence: with varicose veins Qualified Code(s): I83.022 - Varicose veins of left lower extremity with ulcer of calf; L97.222 - Non-pressure chronic ulcer of left calf with fat layer exposed PLAN: Plan Evaluation and debridement performed today in clinic as annotated above. At home wound-care instructions: Will apply Fibracol and super absorbers to left lateral leg and to right lateral leg changed daily. She was instructed to keep dressings clean and dry. Will have her use lymphedema pumps for 60 minutes 2-3 times daily. She has been noncompliant with pumps and was encouraged to increase frequency. Also, encouraged to take diuretic daily. Off-loading: The patient was instructed to avoid pressure and friction on the affected areas. Reposition every 2 hours at minimum. Avoid prolonged standing and/or dangling of legs. When seated, feet should be elevated at chest level. Frequent ambulation is encouraged. Diet: Patient encouraged to increase protein intake while taking caution to avoid high carbohydrate and/or sugar intake. Encouraged weight loss. Labs/cultures/imaging: Most recent venous doppler 10/2024 and previous history of ablation b/l. Echo 09/2024 showed EF 65% with stage 1 diastolic dysfunction. Encouraged her to get her CPAP mask to improve DOLORES and pulmonary HTN treatment compliance which is adding to her decompensated lymphedema. Follow-up: Return 4 weeks or call wound center to be seen sooner or report to the emergency room should symptoms worsen, or new symptoms arise. Note: [employer]isten speech recognition weapons system instrument mechanic software was used to create portions of this document. Sound-alike and misspelled words, as well as other weapons system instrument mechanic errors may be contained in the documentation.
--- NOTE | 2025-05-07 09:10 | WC ---
PHOTO-RIGHT LAT LEG 05/04/25
--- NOTE | 2025-05-07 09:12 | WC ---
PHOTO-LEFT LAT LOWER LEG 05/04/25
== END 2025-05-20 23:59 | disposition home or self-care (01) ==
LOC: WC 10:56
PROVIDERS: PCP Internal Medicine; Referring Provider Family Medicine; Visit Provider Family Medicine
DX: I83.012 Varicose veins of right lower extremity with ulcer of calf (principal); E11.622 Type 2 diabetes mellitus with other skin ulcer; L97.212 Non-pressure chronic ulcer of right calf with fat layer exposed; I83.022 Varicose veins of left lower extremity with ulcer of calf; L97.222 Non-pressure chronic ulcer of left calf with fat layer exposed; J96.11 Chronic respiratory failure with hypoxia; I50.9 Heart failure, unspecified; I11.0 Hypertensive heart disease with heart failure; I27.20 Pulmonary hypertension, unspecified; J44.9 Chronic obstructive pulmonary disease, unspecified; E66.01 Morbid (severe) obesity due to excess calories; Z68.42 Body mass index [BMI] 45.0-49.9, adult; E11.69 Type 2 diabetes mellitus with other specified complication; L03.116 Cellulitis of left lower limb; I89.0 Lymphedema, not elsewhere classified; I87.2 Venous insufficiency (chronic) (peripheral); R60.0 Localized edema; G47.33 Obstructive sleep apnea (adult) (pediatric); R53.81 Other malaise; M15.9 Polyosteoarthritis, unspecified; E03.9 Hypothyroidism, unspecified; Z86.718 Personal history of other venous thrombosis and embolism; Z91.199 Patient's noncompliance with other medical treatment and regimen due to unspecified reason
CPT/HCPCS: 97597

== ENCOUNTER 2025-05-10 17:07 | Emergency (ER) | payer MEDICARE, MEDICAID, SELFPAY ==
[2025-05-10 17:07] VITALS: BP 163/67; PULSE 63; RESP 14; TEMP 36.6; O2SAT 98
[2025-05-10 17:14] VITALS: BMI 47.9
--- NOTE | 2025-05-10 17:30 | RAD_ITS ---
PROCEDURE: KNEE 4 OR MORE VIEWS 05/10/2025 REASON FOR EXAM: ATRAUMATIC PAIN TECHNIQUE: Procedure Code: RADKN Modality: DX Procedure: KNEE 4 OR MORE VIEWS Laterality: Left COMPARISON: 03/22/2024 FINDINGS: BONES: No acute fracture or focal osseous lesion. Generalized osteopenia. JOINTS: Small suprapatellar joint effusion. No dislocation. Severe arthritic changes in the medial compartment with [id number] articulation and subchondral sclerosis. Moderate patellofemoral joint narrowing. Tricompartmental marginal osteophytes. SOFT TISSUES: The soft tissues appear edematous. RAD/Knee 4 or More Views IMPRESSION: 1. No acute osseous abnormality. 2. Tricompartmental osteoarthrosis, severe in the medial compartment. 3. Small knee joint effusion, new since the prior study. Reading Location: [id number]
--- NOTE | 2025-05-10 18:19 | ED.VIS.LOWEX ---
HPI History of Present Illness HPI Narrative: 75-year-old female history of diabetes hypertension. Developed left knee pain after walking on Wednesday she felt a pop. Denies any fever or chills. No redness. No prior knee history or surgery. She has chronic lymphedema both lower extremities. She denies any recent falls or other trauma. Chief Complaint: Lower Extremity Injury Informant: patient Occured/Mechanism Mechanism/Context: No injury and No blunt trauma Onset/Context/Timing Onset: Days Context: Sudden Onset Timing: Continuous Quality of Pain: Dull and Aching Current Severity: Moderate Maximum Severity: Moderate Associated Symptoms Associated Symptoms: Negative for Parasthesia, Weakness or Loss of Funtion Narrative Narrative: 75-year-old female atraumatic left knee felt painful and a pop when she was walking 2 days ago. No prior history of surgery to the knee. No redness or fever or chills. Chronic bilateral lower extremity lymphedema. Prior similar symptoms: No Recent Illness/Hospitalization: No PFSH PFSH Medical History Elevated blood uric acid level Insomnia MRSA (methicillin resistant staph aureus) culture positive Colon cancer screening Debility Osteoarthritis Left knee pain Shingles Urinary incontinence with continuous leakage Gastric ulcer Wears glasses Wears dentures Depression Alcohol use Blister Diabetes Walker as ambulation aid Bladder disease DVT (deep venous thrombosis) Easy bruising Back pain Syncope Dietary restriction Constipation Difficulty swallowing Former smoker CPAP (continuous positive airway pressure) dependence On home oxygen therapy Shortness of breath on exertion Neuropathy Leg cramps History of pain when walking History of edema Hypertension History of CHF (congestive heart failure) History of echocardiogram Cardiology follow-up encounter Hx of cyst of breast Abdominal pain Secondary pulmonary arterial hypertension Hyperlipidemia Left ventricular hypertrophy DVT, bilateral lower limbs Health care maintenance Dermatitis Sore throat Essential hypertension Morbid obesity with BMI of 45.0-49.9, adult Inactivity Lymphedema Asthma GERD (gastroesophageal reflux disease) Ulcer of right lower extremity Difficulty swallowing Depression Type 2 diabetes mellitus Chronic respiratory failure with hypoxia DOLORES (obstructive sleep apnea) Hypothyroidism Pneumonia due to COVID-19 virus (01/30/21) Diabetes mellitus type 2 in obese COPD (chronic obstructive pulmonary disease) Home Medications ?Medication ?Instructions ?Recorded ?Last Taken ?Type Nebulizer #1 ea 10/06/21 Unknown Rx docusate sodium 100 mg capsule 100 mg PO BID 06/04/22 11/27/24 History (Stool Softener) furosemide 40 mg tablet 40 mg PO BID HEART FAILURE #180 09/04/22 11/27/24 Rx tabs Handicap Placard #1 ea 11/02/22 Unknown Rx Bedside Commode #1 ea 02/11/23 Unknown Rx walker (Ultra-Light Rollator misc) #1 ea 02/11/23 Unknown Rx Cpap Supplies #1 ea 12/03/23 Unknown Rx walker (Ultra-Light Rollator misc) #1 ea 12/14/23 Unknown Rx foam bandage 4 X 4 (Aquacel Foam) #10 ea 02/17/24 Unknown Rx atorvastatin 40 mg tablet 40 mg PO QHS #90 tabs 10/17/24 11/26/24 Rx albuterol sulfate 2.5 mg/3 mL 2.5 mg (3 mL) inhalation Q4H PRN 10/18/24 11/27/24 Rx (0.083 %) solution for nebulization Sob &/Or Wheezing #180 mL albuterol sulfate 90 mcg/actuation 2 puff inhalation Q6H PRN for 11/27/24 11/27/24 History aerosol inhaler wheezing potassium chloride 8 mEq 8 meq PO DAILY 11/27/24 11/27/24 History tablet,extended release (Klor-Con) pantoprazole 40 mg tablet,delayed 40 mg PO DAILY #90 tabs 12/19/24 Unknown Rx release ergocalciferol (vitamin D2) 1,250 See Rx Instructions .Route 01/19/25 Unknown Rx mcg (50,000 unit) capsule (Vitamin .COMPLEX #24 caps D2) oxybutynin chloride 5 mg tablet 5 mg PO BID bladder #180 tabs 01/22/25 Unknown Rx fluticasone fur. 200 mcg-umeclid 1 inh inhalation DAILY #60 ea 01/24/25 Unknown Rx 62.5 mcg-vilant 25 mcg inhalat.powder (Trelegy Ellipta) levothyroxine 100 mcg tablet See Rx Instructions .Route 02/14/25 Unknown Rx .COMPLEX #90 tabs cephalexin 500 mg capsule 500 mg PO BID 10 days #20 caps 04/13/25 Unknown Rx sulfamethoxazole 800 1 tab PO BID 10 days #20 tabs 04/13/25 Unknown Rx mg-trimethoprim 160 mg tablet meclizine 25 mg tablet 25 mg PO 4X/DAY PRN PRN Dizziness 04/19/25 Unknown Rx #180 tabs losartan 25 mg tablet 25 mg PO QDAY #90 tabs 04/24/25 Unknown Rx trazodone 50 mg tablet 50 mg PO QHS PRN insomnia #30 tabs 04/25/25 Unknown Rx carvedilol 25 mg tablet 25 mg PO BID #60 tabs 04/30/25 Unknown Rx hydrocodone-acetaminophen 5-325mg 1 tab PO Q6H PRN PRN Pain 5 days 05/10/25 Unknown Rx 5mg-325mg #12 TABLETS Allergy/AdvReac Type Severity Reaction Status Date / Time metformin AdvReac Intermediate Other Verified 05/10/25 17:08 aspirin AdvReac Abd Verified 05/10/25 17:08 cramps/diarrhea codeine AdvReac Abd Verified 05/10/25 17:08 cramps/diarrhea Penicillins AdvReac Hives Verified 05/10/25 17:08 Family History Grandfather Cancer Daughter Ovarian cancer Brother Diabetes Kidney disease Surgical History History of esophagogastroduodenoscopy (EGD) Hx of colonoscopy History of bunionectomy Hx of cholecystectomy Social History (Reviewed 04/23/25 @ 15:01 by Dianne De Los Santos HEAD REFRIGERATING ENGINEER, HEAD REFRIGERATING ENGINEER-C) Smoking Status: Former smoker Tobacco: How many years used: 30 how long ago did patient quit smokin years alcohol intake: never substance use type: does not use what type of physical activity do you participate in: none ROS ROS ED ROS Narrative Denies recent illness. Constitutional Constitutional ED: Denies chills or fever(s) Eyes Eyes: Denies blurry vision ENT ENT ED: Denies ear pain Cardiovascular Cardiovascular: Denies chest pain Respiratory/Chest Respiratory/Chest: Denies cough Gastrointestinal Gastrointestinal: Denies abdominal pain Genitourinary Genitourinary ED: Denies dysuria Musculoskeletal Musculoskeletal: Denies arthralgias Integumentary Denies abscess Neurologic Neurologic: Denies headache(s) Psychiatric Psychiatric: Denies anxiety or depression Endocrine Endocrinology: Denies polydipsia Hematologic/Lymphatic Hematologic/Lymphatic: Denies easy bleeding Allergic/Immunologic Allergic/Immunologic ED: Denies mouth swelling EXAM Physical Exam Narrative Exam Narrative: 75-year-old female sitting upright in bed vital signs are stable afebrile. No acute distress. H EENT exam pupils round react light. Moist mucous members. Lungs clear. Heart regular rhythm. Rate about 60. Chest wall ribs nontender. Abdomen soft nontender. No peritoneal signs. Moving all 4 extremities. She has chronic lymphedema both lower extremities equal symmetrical. Left knee chronically swollen. No obvious effusion. ACL and PCL appear to be intact as to MCL and LCL. There is no signs of septic joint or cellulitis. There is no inguinal lymphadenopathy or streaking. There is no redness or warmth. She can flex and extend the knee she can extend 9 and 80 degrees she has discomfort with flexion. Dorsi plantarflexion is intact. She has normal strength in her feet. Neurologically she is awake alert. Answering questions following commands. Const Vital Signs: 05/10/25 17:07 Temperature 98 F Temperature Source Temporal Pulse Rate 63 Respiratory Rate 14 Blood Pressure 163/67 H Blood Pressure Mean 99 Pulse Ox 98 Oxygen Delivery Method Room Air MDM MDM MDM Narrative Medical decision making narrative: 75-year-old female felt a pop Maria G 2 days ago and she was walking has had knee pain since. No prior history or surgery to this knee. She has had a prior knee replacement to the right knee. Exam is benign consistent with arthritis. There is no signs of acute infection. X-ray was obtained shows severe arthritis of the left knee with degenerative joint space. I will do the x-rays with the patient. She will be written for [place] for pain and follow-up with orthopedics. She knows to return if she develops a fever or redness. She will ice the area also. Radiography Diagnostic Testing: Clinical Impression(s) from Imaging Studies Knee X-Ray 05/10/25 17:30 IMPRESSION: 1. No acute osseous abnormality. 2. Tricompartmental osteoarthrosis, severe in the medial compartment. 3. Small knee joint effusion, new since the prior study. Reading Location: [facility] Left knee x-ray, 4 views, interpreted both myself and the radiologist. Shows severe osteoarthritis with joint space narrowing primarily medially. No fracture. No dislocation. Small effusion. I did do an x-ray of the patient. Discharge Plan Triage Chief Complaint: Lower Extremity Injury ED Provider: Shamir Forbes Dx/Rx/DC Orders Clinical Impression: Osteoarthritis Instructions: ED Osteoarthritis Prescriptions: New hydrocodone-acetaminophen 5-325 mg tablet 1 tab PO Q6H PRN PRN (Reason: Pain) 5 Days Qty: 12 0RF No Action (DME) Nebulizer See Rx Instructions .ROUTE .MEDSUPPLY Qty: 1 0RF Rx Instructions: As directed (DME) Handicap Placard See Rx Instructions .ROUTE .MEDSUPPLY Qty: 1 0RF Rx Instructions: As directed, length of time 3 years (DME) Bedside Commode See Rx Instructions .Route .MEDSUPPLY Qty: 1 0RF Rx Instructions: As directed (DME) Ultra-Light Rollator Misc See Rx Instructions .Route Qty: 1 0RF Rx Instructions: As directed (DME) Cpap Supplies See Rx Instructions .Route .MEDSUPPLY Qty: 1 3RF Rx Instructions: As directed (DME) Aquacel Foam 4 X 4 bandage See Rx Instructions .Route Qty: 10 0RF Rx Instructions: As directed albuterol sulfate 2.5 mg /3 mL (0.083 %) solution for nebulization 2.5 mg inhalation Q4H PRN (Reason: Sob &/Or Wheezing) Qty: 180 11RF docusate sodium [Stool Softener] 100 mg Capsule 100 mg PO BID potassium chloride [Klor-Con 8] 8 mEq tablet extended release 8 meq PO DAILY albuterol sulfate 90 mcg/actuation HFA aerosol inhaler 2 puff inhalation Q6H PRN ergocalciferol (vitamin D2) [Vitamin D2] 1,250 mcg (50,000 unit) capsule See Rx Instructions .ROUTE .COMPLEX Qty: 24 1RF Rx Instructions: 1,250 mcg orally twice weekly - Wednesday and Wednesday sulfamethoxazole-trimethoprim 800-160 mg tablet 1 tab PO BID 10 Days Qty: 20 0RF cephalexin 500 mg capsule 500 mg PO BID 10 Days Qty: 20 0RF furosemide 40 mg tablet 40 mg PO BID Qty: 180 4RF (DME) Ultra-Light Rollator Misc See Rx Instructions .Route Qty: 1 1RF Rx Instructions: As directed atorvastatin 40 mg tablet 40 mg PO QHS Qty: 90 3RF pantoprazole 40 mg tablet,delayed release (DR/EC) 40 mg PO DAILY Qty: 90 1RF Rx Instructions: 40 MG ORALY DAILY oxybutynin chloride 5 mg tablet 5 mg PO BID Qty: 180 0RF Trelegy Ellipta 200-62.5-25 mcg blister with device 1 inh inhalation DAILY Qty: 60 6RF levothyroxine 100 mcg tablet See Rx Instructions .ROUTE .COMPLEX Qty: 90 1RF Dose Instruction: 100 MCG ORALLY DAILY FOR HYPOTHYROIDISM Rx Instructions: 100 MCG ORALLY DAILY FOR HYPOTHYROIDISM meclizine 25 mg tablet 25 mg PO 4X/DAY PRN PRN (Reason: Dizziness) Qty: 180 0RF losartan 25 mg tablet 25 mg PO QDAY Qty: 90 0RF trazodone 50 mg tablet 50 mg PO QHS PRN (Reason: insomnia) Qty: 30 0RF carvedilol 25 mg tablet 25 mg PO BID Qty: 60 0RF Primary Care Provider: Luis Cortés Referrals: Luis Cortés MD [Primary Care Provider, Internal Medicine] Valentino Miller MD [Med Staff - Active Staff, Orthopedics] - As soon as possible Activity Restrictions/Additional Instructions: Pain in your knee due to severe arthritis. Ice to decrease pain and swelling. Rest. Tylenol and Motrin for pain and inflammation. [place] for more severe pain. Make sure you are drinking plenty of water, fruits, vegetables, fiber and stool softener as needed pain medication can cause constipation. Call and follow-up with an orthopedic surgeon to have your knee reevaluated. Return if you develop a fever or redness. At this time there is no signs of infection. Print Language: Greenlandic Disposition Disposition: Home, Self Care
[2025-05-10] MEDS: HYDROcodone Bitartrate/Apap 5/325 Tablet PO (18:31)
[2025-05-10 18:33] VITALS: BP 145/58; PULSE 70; RESP 18; TEMP 36.8; O2SAT 92
--- OUTSIDE RECORDS SUMMARY | 2025-05-10 19:26 | XMS RPT_ITS | CCD ---
Author Organization [facility] Care Team Providers Care Kennel Assistant Name Role Phone Unavailable Unavailable Unavailable Xavi, Paul Smith Unavailable Coepland, Marcelo E Admitting Unavailable Copeland, Marcelo E Attending Unavailable Copeland, Marcelo E Admitting Unavailable Copeland, Marcelo E Attending Unavailable Sringeri, Vijeth R Admitting Unavailable Sringeri, Vijeth R Attending Unavailable Copeland, Marcelo E Admitting Unavailable Copeland, Marcelo E Attending Unavailable Copeland, Marcelo E Admitting Unavailable Copeland, Marcelo E Attending Unavailable Sourav Bear Admitting Unavailable Sourav Bear Attending Unavailable Aminatangeri, Sonujeth Primary Care Provider MARJORIE NARAYANAN Attending Unavailable MARJORIE NARAYANAN Referring Unavailable SRINGERI, VIJETH Primary Care Unavailable CHETAN BLEDSOE Attending Unavailable MARJORIE NARAYANAN Referring Unavailable SRINGERI, VIJETH Primary Care Unavailable CHETAN BLEDSOE Attending Unavailable MARJORIE NARAYANAN Referring Unavailable SRINGERI, VIJETH Primary Care Unavailable CHETAN BLEDSOE Attending Unavailable MARJORIE NARAYANAN Referring Unavailable SRINGERI, VIJETH Primary Care Unavailable CHETAN BLEDSOE Attending Unavailable MARJORIE NARAYANAN Referring Unavailable SRINGERI, VIJETH Primary Care Unavailable MARJORIE NARAYANAN Attending Unavailable MARJORIE NARAYANAN Referring Unavailable SRINGERI, VIJETH Primary Care Unavailable MARJORIE NARAYANAN Attending Unavailable MARJORIE NARAYANAN Referring Unavailable SRINGERI, VIJETH Primary Care Unavailable MARJORIE NARAYANAN Attending Unavailable MARJORIE NARAYANAN Referring Unavailable SRINGERI, VITH Primary Care Unavailable MARJORIE NARAYANAN Attending Unavailable FITCMARJORIE Venegas Referring Unavailable SRINGERI, VITH Primary Care Unavailable FITCTheo, MARJORIE Ramsey Attending Unavailable FITCTheo, MARJORIE Ramsey Referring Unavailable SRINGERI, VITH Primary Care Unavailable FITCTheo, MARJORIE Ramsey Attending Unavailable FITCTheo, MARJORIE Ramsey Referring Unavailable SRINGERI, VITH Primary Care Unavailable FITCTheo, MARJORIE Ramsey Attending Unavailable FITCTheo, MARJORIE Ramsey Referring Unavailable SRINGERI, VITH Primary Care Unavailable FITCTheo, MARJORIE Ramsey Attending Unavailable FITCTheo, MARJORIE Ramsey Referring Unavailable SRINGERI, VIJETH Primary Care Unavailable FITCTheo, MARJORIE Ramsey Attending Unavailable FITCTheo, MARJORIE Ramsey Referring Unavailable SRINGERI, VITH Primary Care Unavailable FITCTheo, MARJORIE Ramsey Attending Unavailable ORACIO, MARJORIE Ramsey Referring Unavailable SRINGERI, VITH Primary Care Unavailable Sringeri, [facility]ije[facility] Prov ider [facility] [place] Primary Care Prov ider Aminatanghever, [facility] Primary Care Prov ider Ny Anderson Primary Care Provider [facility] Primary Care Provider Unavailbee e Xavi CASANOVA, [facility] Primary Care P rovider ZEFERINO ALICIA Referring Unavail able ZEFERINO ALICIA Admitting Unavail able PAUL HURLEY Primary Care U yas Hurley MD, [facility] [place] Primary Care P rovider Xavi CASANOVA, Sonucody Dunbar Primary Care P rovider PAUL HURLEY Attending U SONU SalazarCODY SMITH Primary Care U PAUL Salazar Attending U [facility] Primary Care U cristhianhe[facility] medical centerable SRINGERI, VIJETH RATHNARAJAIAH Attending U navailable SRINGERI, VIJETH RATHNARAJAIAH Primary Care U navailable SRINGERI, VIJETH RATHNARAJAIAH Admitting U navailable CAYDEN, ZEFERINO KNIGHT Attending Unavail able SRINGERI, VIJETH RATHNARAJAIAH Referring U navailable SRINGERI, VIJETH RATHNARAJAIAH Primary Care U navailable LILIAM COREY Attending Unavailable SRINGERI, VIJETH RATHNARAJAIAH Primary Care U navailable SRINGERI, VIJETH RATHNARAJAIAH Attending U navailable SRINGERI, VIJETH RATHNARAJAIAH Primary Care U navailable DURGA IRWIN Attending Unavailab le SRINGERI, VIJETH RATHNARAJAIAH Primary Care U navailable CAYDEN, ZEFERINO KNIGHT Attending Unavail able CAYDEN, ZEFERINO KNIGHT Admitting Unavail able SRINGERI, VIJETH RATHNARAJAIAH Primary Care U navailable TEAGAN SCHAFER Attending Unavaila ble SRINGERI, VIJETH RATHNARAJAIAH Primary Care U navailable SRINGERI, SONUJETH RATHNARAJAIAH Attending U navailable SRINGERI, VIJETH RATHNARAJAIAH Primary Care U navailable SRINGERI, VIJETH RATHNARAJAIAH Referring U navailable SRINGERI, VIJETH RATHNARAJAIAH Referring U navailable SRINGERI, VIJETH RATHNARAJAIAH Attending U navailable SRINGERI, VIJETH RATHNARAJAIAH Primary Care U navailable SRINGERI, VIJETH RATHNARAJAIAH Referring U navailable SRINGERI, VIJETH RATHNARAJAIAH Primary Care U navailable SRINGERI, VIJETH RATHNARAJAIAH Admitting U navailable Xavi CASANOVA, Paul Smith Primary Care P rosonuder Dr. Luis Cortés Primary Care Provider [phone] Dr. Luis Cortés Referring Provider [phone] Dilip CONTACT AGENT, CONTACT AGENTElizC Zainab Attending Provider Dr. Luis Cortés Attending Provider [phone] Dr. Jori Beal Attending Provider Dr. Jori Beal Referring Provider Dr. Jori Beal Other Provider Dr. Usama Alas Attending Provider Dr. Luis Cortés Primary Care Provider [phone] Dr. Luis Cortés Referring Provider [phone] Filiberto CONTACT AGENT, CONTACT AGENT-C Dianne Attending Provider [facility] Primary Care Provider Dr. Luis Zarate Primary Care Provider [phone] Dr. Luis Cortés Referring Provider [phone] Dr. Luis Cortés Attending Provider [phone] Dr. Luis Cortés Primary Care Provider [phone] Dr. Luis Cortés Referring Provider [phone] Dana CONTACT AGENT, CONTACT AGENT-C Tania E Attending Provider Dana CONTACT AGENT, CONTACT AGENT-C Tania E Referring Provider Dana CONTACT AGENT, CONTACT AGENT-C Tania E Other Provider [phone] Dr. Luis Cortés Primary Care Provider [phone] Dr. Luis Cortés Attending Provider [phone] Dr. Luis Cortés Referring Provider [phone] Dana CONTACT AGENT, CONTACT AGENT-C Tania E Attending Provider Dana CONTACT AGENT, CONTACT AGENT-C Tania E Referring Provider Dana CONTACT AGENT, CONTACT AGENT-C Tania E Other Provider Dr. Andrew Walker Other Provider Dr. Jori Beal Attending Provider Dr. Jori Beal Referring Provider Dr. Eliud Giraldo Attending Provider Dr. Jon Rubio Attending Provider Dr. Keven Corey Attending Provider Charlee Sunshine Attending Provider Unavailable Dr. Luis Cortés Primary Care Provider [phone] Dr. Luis Cortés Attending Provider [phone] Dr. Luis Cortés Referring Provider [phone] Dr. Ant Kasper Attending Provider Dr. Ant Kasper Other Provider [phone] Unavailable [facility] Dr. Luis Cortés Primary Care Provider [phone] Dr. Luis Cortés Referring Provider [phone] Dr. Luis Cortés Attending Provider [phone] Nurse, Surgery Attending Provider Unavailable Dilip ALVAREZ, CHARMAINE Lamb Attending Provider Dr. Lusi Cortés Primary Care Provider [phone] Dr. Luis Cortés Referring Provider [phone] Dr. Jon Rubio Attending Provider Biedenhmaria teresa PA, PA Molly Attending Provider Josee BARBER, PA Molly Other Provider Dr. Luis Cortés Primary Care Provider [phone] Dr. Luis Cortés Referring Provider [phone] Dr. Ant Kasper Attending Provider Dr. Ant Kasper Other Provider Dr. Luis Cortés Attending Provider [phone] Dr. Jon Rubio Attending Provider Nurse, Surgery Attending Provider Unavailable Dilip CONTACT AGENT, CONTACT AGENT-C Zainab Attending Provider SUNIL Resendez Attending Provider [phone] SUNIL Resendez Other Provider Dr. Luis Cortés Primary Care Provider [phone] Dr. Luis Cortés Referring Provider [phone] Dr. Ant Kasper Attending Provider Filiberto CONTACT AGENT, CONTACT AGENT-C Dianne Attending Provider Dr. Luis Cortés Primary Care Provider [phone] 0) Dr. Luis Cortés Attending Provider [phone] Dr. Luis Cortés Referring Provider [phone] Dr. Jon Rubio Attending Provider Dr. Luis Cortés Primary Care Provider 1(33 0) Dr. Luis Cortés Referring Provider [phone] Dr. Luis Cortés Attending Provider [phone] Dilip ALVAREZ, KIM-C Zainab Attending Provider Dr. Jori Beal Attending Provider [phone] Dr. Luis Cortés Primary Care Provider [phone] Dr. Luis Cortés Attending Provider [phone])[phone] Dr. Luis Cortés Referring Provider [phone] Dr. Jon Rubio Attending Provider Dilip ALVAREZ, CONTACT AGENT-C Zainab Attending Provider Dr. Jori Beal Attending Provider [phone] Dr. Luis Cortés Primary Care Provider 1(33 0) Dr. Luis Cortés Referring Provider [phone] Dr. Luis Cortés Primary Care Provider 1(33 0) Dr. Luis Cortés Referring Provider [phone] Ramiro, Dr. Webb Attending Provider Dr. Eliud Giraldo Attending Provider [phone] Sneha Rosa Referring Provider [phone] Dr. Luis Cortés Primary Care Provider 1(33 0) Dr. Luis Cortés Referring Provider [phone] Ramiro, Dr. Webb Attending Provider Dr. Eliud Giraldo Attending Provider [phone] Sneha Rosa Referring Provider Dr. Durga Dover Attending Provider [phone] [facility] Webb Referring Provider Dr. Luis Cortés Primary Care Provider 1(33 0) Dr. Luis Cortés Referring Provider [phone] Ramiro, Dr. Webb Attending Provider Moo CASANOVA, Dr. Smith Primary Care Provider Dr. Luis Cortés MD Referring Provider 1(33 0) Dr. Sneha Rosa DO Attending Provider [phone] Molly Guadarrama Other Provider Dr. Sneha Rosa DO Other Provider [phone] Molly Guadarrama Attending Provider [phone] Luis Cortés MD Attending Provider [phone] Enzo CASANOVA, Dr. Kline Attending Provider [phone] Dr. Eliud Giraldo MD Referring Provider [phone] Enzo CASANOVA, Dr. Kline Other Provider [phone] Molly Guadarrama Referring Provider [phone] Roof CONTACT AGENT-C, Navneet Venegas Attending Provider Moo CASANOVA, Dr. Smith Primary Care Provider Moo CASANOVA, Dr. Smith Referring Provider [phone] Ebony BARBER, Molly Other Provider Moe CHIRINOS, Dr. Hoover Attending Provider [phone] Marilu CONTACT AGENT-C, Navneet Venegas Referring Provider [phone] Leora CASANOVA, Dr. Baca Attending Provider [phone] Moo CASANOVA, Dr. Smith Primary Care Provider Moo CASANOVA, Dr. Smith Referring Provider 1(33 0) Moe CHIRINOS, Dr. Hoover Attending Provider Ebony PA, Molly Other Provider Ebony PA, Molly Attending Provider [phone] Dilip CONTACT AGENT-CZainab Attending Provider [phone] Dilip CONTACT AGENT-CZainab Referring Provider Filiberto ALVAREZ-CDianne Attending Provider Moo CASANOVA, Dr. Smith Attending Provider 1(33 0) Moe CHIRINOS, Dr. Hoover Referring Provider Moo CASANOVA, Dr. Smith Primary Care Provider Moo CASANOVA, Dr. Smith Referring Provider 1(33 0) Moe CHIRINOS, Dr. Hoover Attending Provider Ebony BARBER, Molly Other Provider Enzo CASANOVA, Dr. Kline Attending Provider [phone] Enzo CASANOVA, Dr. Kline Referring Provider [phone] Enzo CASANOVA, Dr. Kline Other Provider [phone] Beck PA, Molly Referring Provider [phone] Ebony PA, Molly Attending Provider [phone] Roof CONTACT AGENT-C, Navneet Venegas Attending Provider [phone] Roof CONTACT AGENT-C, Navneet Venegas Referring Provider Leora CASANOVA, Dr. Baca Attending Provider [phone] Dilip CONTACT AGENT-C, Zainab Attending Provider [phone] Dilip CONTACT AGENT-C, Zainab Referring Provider Filiberto CONTACT AGENT-CDianne Attending Provider Moo CASANOVA, Dr. Smith Attending Provider 1(33 0) Dr. Sneha Rosa DO Referring Provider [phone] Moo CASANOVA, Dr. Smith Primary Care Provider Moo CASANOVA, Dr. Smith Referring Provider 1(33 0) Dr. Sneha Rosa DO Attending Provider [phone] Ebony BARBER, Molly Other Provider Moo CASANOVA, Dr. Smith Primary Care Provider Enzo CASANOVA, Dr. Kline Attending Provider [phone] Enzo CASANOVA, Dr. Kline Referring Provider Dr. Amara Reich DO Emergency Provider Moo CASANOVA, Dr. Smith Primary Care Provider Moo CASANOVA, Dr. Smith Referring Provider [phone] Enzo CASANOVA, Dr. Kline Attending Provider Dr. Amara Reich DO Attending Provider Ungerer CONTACT AGENT-C, Ni Attending Provider Moo CASANOVA, Dr. Smith Primary Care Provider Moo CASANOVA, Dr. Smith Referring Provider [phone] Dr. Sneha Rosa DO Attending Provider [phone] Ebony BARBER, Molly Other Provider Moo CASANOVA, Dr. Smith Primary Care Provider Marilu CONTACT AGENT-C, Navneet H Attending Provider Moo CASANOVA, Dr. Smith Referring Provider Moe CHIRINOS, Dr. Hoover Attending Provider [phone] Ebony BARBER, Molly Other Provider Trell CASANOVA, Dr. Hale Attending Provider Moo CASANOVA, Dr. Smiht Primary Care Provider Jonathon CONTACT AGENT-C, Ni Referring Provider Moo CASANOVA, Dr. mSith Primary Care Provider Moo CASANOVA, Dr. Smith Referring Provider [phone] Zainba Baker Attending Provider Trell CASANOVA, Dr. Hale Attending Provider Unavailable Primary Care Provider [facility] e Moo CASANOVA, Dr. Smith Primary Care Provider Moo CASANOVA, Dr. Smith Referring Provider [phone] Moe CHIRINOS, Dr. Hoover Attending Provider [phone] Enzo CASANOVA, Dr. Kline Attending Provider [phone] Zainab Baker Referring Provider Ebony BARBER, Molly Other Provider Zainab Baker Attending Provider JOHN JANSEN Attending Unavailable Moo CASANOVA, Dr. Smith Primary Care Physician Dr. Sneha Rosa DO Attending Physician Dr. Sneha Rosa DO Referring Provider Dr. Amara Reich DO Attending Physician Dr. Amara Reich DO Emergency Department [facility] Moo CASANOVA, Dr. Smith Referring Provider Jonathon CONTACT AGENT-C, Ni Attending Physician Ebony BARBER, Molly Nurse Practitioner Trell CASANOVA, Dr. Hale Attending Physician Moo CASANOVA, Dr. Smith Attending Physician [phone] Zainab Baker Attending Physician Moo CASANOVA, Dr. Smith Primary Care Physician Moo CASANOVA, Dr. Smith Referring Provider [phone] Ungnika CONTACT AGENT-C, Ni Attending Physician Moe CHIRINOS, Dr. Hoover Attending Physician Ebony BARBER, Molly Nurse Practitioner [phone] Trell CASANOVA, Dr. Hale Attending Physician Jonathon CONTACT AGENT-C, Ni Referring Provider Moo CASANOVA, Dr. Smith Attending Physician [phone] Zainab Baker Attending Physician Ramiro CASANOVA, Dr. Webb Attending Physician Ramiro CASANOVA, Dr. Webb Referring Provider Beck, Molly Consulting Unavailable Oleghe, Efewongbe Referring Unavailable Sneha Rosa Attending Unavailable Oleghe, Efewongbe Primary Care Unavailable Oleghe, Efewongbe Primary Care Unavailable Dianne De Los Santos NP Attending Unavailable Oleghe, Efewongbe Referring Unavailable Navneet Michel NP Attending Unavailable Oleghe, Efewongbe Referring Unavailable Oleghe, Efewongbe Primary Care Unavailable Zainab Cherry NP Referring Unavailable Zainab Cherry NP Attending Unavailable Oleghe, Efewongbe Primary Care Unavailable Ariella Rosaa Attending Unavailable Oleghe, Efewongbe Primary Care Unavailable Moe Sneha Referring Unavailable Beck, Molly Consulting Unavailable Sneha Rosa Attending Unavailable Oleghe, Efewongbe Referring Unavailable Oleghe, Efewongbe Primary Care Unavailable Eliud Giraldo Referring Unavailable Oleghe, Efewongbe Primary Care Unavailable Eliud Giraldo Attending Unavailable Beck, Molly Consulting Unavailable Oleghe, Efewongbe Referring Unavailable Oleghe, Efewongbe Primary Care Unavailable Malys, Sneha Attending Unavailable Beck, Molly Consulting Unavailable Oleghe, Efewongbe Referring Unavailable Oleghe, Efewongbe Primary Care Unavailable Malys, Sneha Attending Unavailable Oleghe, Efewongbe Attending Unavailable Oleghe, Efewongbe Primary Care Unavailable Oleghe, Efewongbe Referring Unavailable Malys, Sneha Attending Unavailable Oleghe, Efewongbe Primary Care Unavailable Malys, Sneha Referring Unavailable Oleghe, Efewongbe Referring Unavailable Oleghe, Efewongbe Primary Care Unavailable Malys, Sneha Attending Unavailable Beck, Molly Consulting Unavailable Malys, Sneha Referring Unavailable Oleghe, Efewongbe Primary Care Unavailable Malys, Sneha Attending Unavailable Malys, Sneha Referring Unavailable Malys, Sneha Attending Unavailable Oleghe, Efewongbe Primary Care Unavailable Beck, Molly Attending Unavailable Oleghe, Efewongbe Referring Unavailable Oleghe, Efewongbe Primary Care Unavailable Zainab Cherry NP Attending Unavailable Oleghe, Efewongbe Primary Care Unavailable Oleghe, Efewongbe Referring Unavailable Oleghe, Efewongbe Primary Care Unavailable Jon Rubio Attending Unavailable Oleghe, Efewongbe Referring Unavailable Marilu CONTACT AGENTNavneet Attending Unavailable Oleghe, Efewongbe Primary Care Unavailable Oleghe, Efewongbe Referring Unavailable Zainab Cherry NP Attending Unavailable Oleghe, Efewongbe Primary Care Unavailable Dilip CONTACT AGENT, Zainab Referring Unavailable EnzoEliud Attending Unavailable Oleghe, Efewongbe Primary Care Unavailable Beck, Molly Referring Unavailable Oleghe, Efewongbe Primary Care Unavailable Eliud Giraldo Attending Unavailable Marilu CONTACT AGENTNavneet Attending Unavailable Oleghe, Efewongbe Referring Unavailable Oleghe, Efewongbe Primary Care Unavailable Dilip CONTACT AGENT, Zainab Attending Unavailable Oleghe, Efewongbe Primary Care Unavailable Oleghe, Efewongbe Referring Unavailable Dilip CONTACT AGENT, Zainab Referring Unavailable Eliud Giraldo Attending Unavailable Oleghe, Efewongbe Primary Care Unavailable Beck, Molly Consulting Unavailable Beck, Molly Attending Unavailable Oleghe, Efewongbe Primary Care Unavailable Oleghe, Efewongbe Referring Unavailable Malys, Sneha Consulting Unavailable Enzo, Eliud Referring Unavailable Oleghe, Efewongbe Primary Care Unavailable Enzo, Eliud Attending Unavailable Enzo, Eliud Consulting Unavailable Zainab Cherry NP Attending Unavailable Oleghe, Efewongbe Primary Care Unavailable Beck, Molly Referring Unavailable Oleghe, Efewongbe Primary Care Unavailable Enzo, Eliud Attending Unavailable Beck, Molly Attending Unavailable Oleghe, Efewongbe Referring Unavailable Oleghe, Efewongbe Primary Care Unavailable Keven Corey Attending Unavailable Oleghe, Efewongbe Primary Care Unavailable Oleghe, Efewongbe Referring Unavailable Dianne De Los Santos NP Attending Unavailable Oleghe, Efewongbe Primary Care Unavailable Malys, Sneha Referring Unavailable Malys, Sneha Attending Unavailable Oleghe, Efewongbe Primary Care Unavailable Jon Rubio Referring Unavailable Oleghe, Efewongbe Primary Care Unavailable Jon Rubio Attending Unavailable Oleghe, Efewongbe Attending Unavailable Oleghe, Efewongbe Referring Unavailable Oleghe, Efewongbe Primary Care Unavailable Malys, Sneha Attending Unavailable Oleghe, Efewongbe Primary Care Unavailable Malys, Sneha Referring Unavailable Malys, Sneha Attending Unavailable Oleghe, Efewongbe Primary Care Unavailable Malys, Sneha Referring Unavailable Malys, Sneha Referring Unavailable Oleghe, Efewongbe Primary Care Unavailable Malys, Sneha Attending Unavailable Amara Reich Attending Unavailable Oleghe, Efewongbe Primary Care Unavailable Beck, Molly Consulting Unavailable Oleghe, Efewongbe Primary Care Unavailable Malys, Sneha Attending Unavailable Oleghe, Efewongbe Referring Unavailable Ungerer, Ni Referring Unavailable Oleghe, Efewongbe Primary Care Unavailable UngererBeverleyNi Attending Unavailable Beck, Molly Consulting Unavailable Oleghe, Efewongbe Primary Care Unavailable Malys, Sneha Attending Unavailable Oleghe, Efewongbe Referring Unavailable Oleghe, Efewongbe Primary Care Unavailable Malys, Sneha Attending Unavailable Malys, Sneha Referring Unavailable Malys, Sneha Referring Unavailable Oleghe, Efewongbe Primary Care Unavailable Malys, Sneha Attending Unavailable Beck, Molly Consulting Unavailable Oleghe, Efewongbe Primary Care Unavailable Malys, Sneha Attending Unavailable Oleghe, Efewongbe Referring Unavailable [place], Eliud Referring Unavailable Oleghe, Efewongbe Primary Care Unavailable Lower Peach TreeEliud Attending Unavailable Beck, Molly Consulting Unavailable Oleghe, Efewongbe Referring Unavailable Malys Sneha Attending Unavailable Oleghe, Efewongbe Primary Care Unavailable Oleghe, Efewongbe Attending Unavailable Oleghe, Efewongbe Primary Care Unavailable Oleghe, Efewongbe Referring Unavailable Beck, Molly Consulting Unavailable Oleghe, Efewongbe Primary Care Unavailable Malys, Sneha Attending Unavailable Oleghe, Efewongbe Referring Unavailable Oleghe, Efewongbe Referring Unavailable Oleghe, Efewongbe Attending Unavailable Oleghe, Efewongbe Primary Care Unavailable Malys, Sneha Referring Unavailable Malys, Sneha Attending Unavailable Oleghe, Efewongbe Primary Care Unavailable Oleghe, Efewongbe Attending Unavailable Oleghe, Efewongbe Primary Care Unavailable Oleghe, Efewongbe Referring Unavailable Oleghe, Efewongbe Attending Unavailable Oleghe, Efewongbe Primary Care Unavailable Oleghe, Efewongbe Referring Unavailable Ungerer Ni Attending Unavailable Oleghe, Efewongbe Primary Care Unavailable Oleghe, Efewongbe Referring Unavailable Ungerer, Ni Attending Unavailable Oleghe, Efewongbe Primary Care Unavailable Oleghe, Efewongbe Referring Unavailable Malys, Sneha Referring Unavailable Malys, Sneha Attending Unavailable Oleghe, Efewongbe Primary Care Unavailable Oleghe, Efewongbe Primary Care Unavailable Malys, Sneha Attending Unavailable Malys, Sneha Referring Unavailable Roof CONTACT AGENTNavneet Referring Unavailable Oleghe, Efewongbe Primary Care Unavailable Roof CONTACT AGENTNavneet Attending Unavailable Allergies Allergy Classification Reported Allergen(s) Allergy Type Date of Onset Reaction(s) Facility Aspirin (12 sources) Aspirin; Translations: [ASPIRIN] Drug Allergy 9 GI Intolerance [facility] Opioid Agonists (12 sources) Codeine; Translations: [CODEINE] Drug Allergy 6 GI Upset [facility] Work Phone: Salicylic Acid (12 sources) Salicylic Acid; Translations: [SALICYLATES] Drug Allergy 6 GI [facility] Work Phone: Serotonin Reuptake Inhibitors (SSRIs) (12 sources) FLUoxetine; Translations: [FLUOXETINE HCL] Drug Allergy 7 GI Upset [facility] Unclassified (9 sources) Imidazole antifungal Propensity to adverse reactions to drug 6 Rash [facility] Work Phone: (20 sources) Codeine; Translations: [CODEINE] Drug Allergy 6 GI Upset [facility] (20 sources) FLUoxetine Drug Allergy 7 [facility] (20 sources) Miconazole; Translations: [ANTIFUNGAL - IMIDAZOLE] Drug Allergy 6 [facility] (20 sources) Salicylic Acid; Translations: [SALICYLATES] Drug Allergy 6 GI Upset [facility] (20 sources) Aluminum aspirin; Translations: [ASPIRIN] Drug Allergy 9 [facility] (20 sources) FLUoxetine; Translations: [FLUOXETINE] Drug Allergy 7 Dyspepsia, GI Upset [facility] (6 sources) gabapentin Drug Allergy 9 [facility] (20 sources) Penicillins; Translations: [PENICILLINS] Propensity to adverse reactions to drug 9 Hives [facility] (20 sources) Aspirin Drug Allergy 9 GI Intolerance, GI Upset [facility] (20 sources) Penicillins Propensity to adverse reactions 2 Hives [facility] Comment on above: Patient states hives (20 sources) metFORMIN Drug Allergy 4 Other [facility] Comment on above: hallucinate (1 source) Penicillins Propensity to adverse reactions 9 Nausea/vomiting [facility] Work Phone: (1 source) Aspirin Drug Allergy 5 [facility] Repository (1 source) Codeine Drug Allergy 5 [facility] Repository (1 source) metFORMIN Drug Allergy 5 [facility] Repository (1 source) Penicillins Drug allergy (disorder) 5 [facility] Repository Medications Current Medications Medication Drug Class(es) Dates Sig (Normalized) Sig (Original) [id number] 200 actuat albuterol 0.09 mg/actuat metered dose inhaler (20 sources) beta2-Adrenergic Agonist Start: 10-18-2024 take 2.5 mg by inhalation every four hours as needed for wheezing Start: 10-18-2024 Start: 09-24-2023 End: 08-28-2024 Albuterol Sulfate 90 mcg/act uation aerosol powdr breath activated Discontinued 2 NMA INHALATION Q4H as needed for shortness of breath or wheezing 1 September 24, 2023 12:00am August 28, 2024 11:49am Start: 09-24-2023 End: 08-28-2024 Start: 09-24-2023 Albuterol Sulf ate Active 2 INH INHALATION Q4H September 24, 2023 12:00am Start: 05-08-2022 End: 11-27-2024 Start: 05-08-2022 End: 11-27-2024 Start: 05-08-2022 End: 09-22-2023 take 1 puff(s) by inhalation every six hours Albuterol Sulfate Discontinued 2 PUFF INHALATION EVERY 6 HOURS 8.5 May 17, 2023 9:34am September 22, 2023 9:29pm Start: 10-06-2021 End: 04-01-2022 take 2.5 mg by inhalation every four hours as needed for wheezing Albuterol Sulfate 2.5 mg /3 mL (0.083 %) solution for nebulization Discontinued 2.5 mg INHALATION Q4H as needed for Sob &/Or Wheezing 180 3 October 06, 2021 12:00am April 01, 2022 11:03am Start: 10-06-2021 End: 04-01-2022 Start: 01-31-2021 End: 10-06-2021 Albuterol Sulfate 90 mcg/act uation HFA aerosol inhaler Discontinued 2 NMA INHALATION 4 TIMES DAILY as needed for Shortness Of Breath January 31, 2021 12:00am October 06, 2021 11:28am Start: 01-31-2021 End: 10-06-2021 Start: 01-31-2021 End: 10-06-2021 Albuterol Sulfate Discontinu ed 2 INH INHALATION 4 TIMES DAILY January 31, 2021 12:00am October 06, 2021 11:28am Start: 02-12-2020 End: 11-04-2020 take 2 puff(s) by inhalation four times daily as needed albuterol 90 mcg/actuation inhaler INHALE 2 PUFFS 4 TIMES A DAY NEEDED 25.5 Inhaler 2 11/04/2020 Active Start: 06-27-2010 albuterol HFA (PROAIR HFA) 90 mcg/Actuation INHALATION inhaler Indications: Asthma 2 puffs every 4 horus as needed 1 Inhaler 2 06/27/2010 Active Comment on above: 2 puffs every 4 horu s as needed albuterol 90 mcg/actuation inhaler (12 sources) Start: 0 take 2 puff(s) by inhalation four times daily as needed albuterol 90 mcg/actuation inhaler INHALE 2 PUFFS 4 TIMES A DAY NEEDED 25.5 Inhaler 2 02/12/2020 Active Bedside Commode (15 sources) Start: 3 Bedside Commode Active 0 .Route .MEDSUPPLY 1 0 February 11, 2023 12:00am Osteoarthritis Debility Unspecified osteoarthritis, unspecified site Other malaise As directed Start: 02-11-2023 Bedside Commod e Active 0 .Route .MEDSUPPLY 1 February 10, 2023 11:00pm As directed Start: 02-11-2023 Bedside Commod e Active 0 .Route .MEDSUPPLY 1 February 11, 2023 12:00am As directed bisacodyl 5 mg delayed release oral tablet (15 sources) Stimulant Laxative Start: 10-03-2020 bisacodyL (DULCOLAX) 5 mg EC tablet As instructed . 4 tablet 0 10/03/2020 Active 60 actuat budesonide 0.16 mg/actuat / formoterol fumarate 0.0045 mg/actuat metered dose inhaler (14 sources) Corticosteroid, beta2-Adrenergic Agonist Start: 11-12-2020 take 2 puff(s) by inhalation twice daily Symbicort 160-4.5 mcg/actuation inhaler Indications: Chronic obstructive pulmonary disease, unspecified COPD type (HCC) , Mild intermittent asthma without complication INHALE 2 (TWO) PUFFS 2 (TWO) TIMES A DAY . 10.2 Inhaler 2 11/12/2020 Active Start: 10-15-2020 End: 11-12-2020 take 2 puff(s) by inhalation twice daily budesonide-formoteroL (Symbicort) 160-4.5 mcg/actuation inhaler Indications: Chronic obstructive pulmonary disease, unspecified COPD type (HCC) , Mild intermittent asthma without complication Inhale 2 (two) puffs 2 (two) times a day . 1 Inhaler 2 10/15/2020 11/12/2020 Discontinued Start: 10-15-2020 End: 10-15-2021 take 2 puff(s) by inhalation twice daily budesonide-formoteroL (Symbicort) 160-4.5 mcg/actuation inhaler Indications: Chronic obstructive pulmonary disease, unspecified COPD type (HCC) , Mild intermittent asthma without complication Inhale 2 (two) puffs 2 (two) times a day . 1 Inhaler 2 10/15/2020 10/15/2021 Active Ca Carb-D3-Mag Vx-Dyv-Lcrt-Zn (Caltrate + D3 Plus Minerals) 300 mg-800 unit -25 mg-0.5 mg tablet (20 sources) Start: 06-09-2021 take 1 tablet by mouth once daily Ca Carb-D3-Mag Zt-Efj-Prir-Zn (Caltrate + D3 Plus Minerals) 300 mg-800 unit -25 mg-0.5 mg tablet Active 1 TABLET PO DAILY June 09, 2021 12:01pm Start: 06-09-2021 End: 11-27-2024 take 1 tablet by mouth once daily Ca Carb-D3-Mag Fu-Yqd-Cpku-Zn (Caltrate + D3 Plus Minerals) 300 mg-800 unit -25 mg-0.5 mg tablet Discontinued 1 {tbl} PO DAILY June 09, 2021 1:00am November 27, 2024 6:20pm Start: 06-09-2021 take 1 tablet by chilo th once daily Ca Carb-D3-Mag Li-Ghl-Xddc-Zn (Caltrate + D3 Plus Minerals) 300 mg-800 unit -25 mg-0.5 mg tablet Active 1 {tbl} PO DAILY June 09, 2021 1:00am Start: 06-09-2021 take 1 tablet by chilo th once daily Ca Carb-D3-Mag Lv-Tfj-Bazq-Zn (Caltrate + D3 Plus Minerals) 300 mg-800 unit -25 mg-0.5 mg tablet Active 1 TABLET PO DAILY June 09, 2021 12:00am Start: 06-09-2021 take 1 tablet by chilo once daily Ca Carb-D3-Mag Np-Dxc-Uhpe-Zn (Caltrate + D3 Plus Minerals) 300 mg-800 unit -25 mg-0.5 mg tablet Active 1 TABLET PO DAILY June 09, 2021 1:00am calcium carbonate 1500 mg oral tablet (17 sources) take 1 tablet by mouth twice daily at mealtime calcium carbonate (OS-JUAN MANUEL) 600 mg calcium (1,500 mg) tablet Take 600 mg by mouth 2 (two) times a day with meals . 0 Active carvedilol 25 mg oral tablet (20 sources) alpha-Adrenergic Radha, beta-Adrenergic Radha Start: 06-20-2023 End: 03-28-2025 take 1 tablet by mouth twice daily Start: 06-20-2023 End: 12-03-2023 take 1 tablet by mouth once daily Carvedilol 25 mg tablet Discontinued 25 mg PO DAILY June 20, 2023 1:00am December 03, 2023 10:01am Start: 04-07-2020 End: 05-31-2023 take 1 tablet by mouth twice daily at mealtime Carvedilol 25 mg tablet Discontinued 0 .ROUTE .COMPLEX 180 November 18, 2022 8:43am May 31, 2023 5:00pm TAKE 1 TABLET BY MOUTH TWICE A DAY MUST ADMINISTER WITH A MEAL/FOOD Start: 06-03-2019 End: 06-09-2019 take 25 mg by mouth twice daily at mealtime 25 mg, Oral, 2 times daily, First dose on 06/03/19 at 1000 Give carvedilol with food to reduce risk of hypotension / dizziness. Separate from admin of KATELYNN inhibitors by two hours. Start: 03-10-2019 take 1 tablet by chilo twice daily carvedilol (COREG) 25 MG tablet Take 25 mg by mouth 2 (two) times a day . 3 03/10/2019 Active take 2 tablets by mo [facility] twice daily at mealtime carveDILOL 12.5 MG Tab tablet Take 25 mg by mouth 2 times daily with meals. 0 Active Cpap Supplies (7 sources) Start: 12-03-2023 Cpap Supplies Active 0 .Route .MEDSUPPLY 1 December 03, 2023 12:00am Obstructive sleep apnea syndrome Obstructive sleep apnea (adult) (pediatric) As directed Start: 12-03-2023 Cpap Supplies Active 0 .Route .MEDSUPPLY 1 December 03, 2023 12:00am As directed docusate sodium 100 mg oral capsule (20 sources) Start: 06-04-2022 take 1 capsule by mo ut twice daily Start: 04-25-2019 End: 09-09-2020 take 1 capsule by mouth once as needed docusate sodium (COLACE) 100 MG capsule Indications: Chronic idiopathic constipation Take 1 (one) capsule (100 mg total) by mouth every 12 (twelve) hours as needed . 180 capsule 1 09/09/2020 Active Docusate Calcium (STOOL SOFTENER PO) Take by mouth. 0 Active ergocalciferol 1.25 mg oral capsule (5 sources) Provitamin D2 Compound Start: 01-19-2025 take 1 capsule by mouth two times weekly Igzgvjynidm-Dihqhdrls-Leha nter (20 sources) Start: 01-24-2025 Start: 01-24-2025 Start: 06-20-2024 End: 01-24-2025 Uvuykivycum-Aapeoihsa-Vhmptu er (Trelegy Ellipta) 200-62.5-25 mcg blister with device Discontinued 1 NMA INHALATION DAILY 60 June 20, 2024 8:56am January 24, 2025 2:14pm Start: 06-20-2024 End: 01-24-2025 Start: 06-20-2024 Start: 06-20-2024 Fluticasone-Um eclidin-Vilanter (Trelegy Ellipta) 200-62.5-25 mcg blister with device Active 1 NMA INHALATION DAILY 60 June 20, 2024 8:56am Start: 11-18-2023 End: 06-20-2024 Dtajmgisvmy-Mpvuxtadm-Kwbcwx er (Trelegy Ellipta) 200-62.5-25 mcg blister with device Discontinued 1 NMA INHALATION DAILY 60 November 18, 2023 9:04am June 20, 2024 8:56am Start: 11-18-2023 End: 06-20-2024 Start: 11-18-2023 End: 06-20-2024 Nrwuyskxtun-Axjauehqa-Jyxhgp er (Trelegy Ellipta) 200-62.5-25 mcg blister with device Discontinued 1 NMA INHALATION DAILY 60 November 18, 2023 9:04am June 20, 2024 8:56am Start: 10-01-2022 End: 11-18-2023 Xukbkjalldd-Sxjnsxbne-Bjadhm er (Trelegy Ellipta) 200-62.5-25 mcg blister with device Discontinued 1 NMA INHALATION DAILY 60 October 01, 2022 12:00am November 18, 2023 9:04am Start: 10-01-2022 End: 11-18-2023 Start: 10-01-2022 End: 11-18-2023 Lyuskerfneo-Asskntngk-Xvdcgp er (Trelegy Ellipta) 200-62.5-25 mcg blister with device Discontinued 1 NMA INHALATION DAILY 60 October 01, 2022 12:00am November 18, 2023 9:04am Start: 10-01-2022 Fluticasone-Um eclidin-Vilanter (Trelegy Ellipta) 200-62.5-25 mcg blister with device Active 1 INH INHALATION DAILY September 30, 2022 11:00pm Start: 10-01-2022 Fluticasone-Um eclidin-Vilanter (Trelegy Ellipta) 200-62.5-25 mcg blister with device Active 1 INH INHALATION DAILY 60 October 01, 2022 12:00am Foam Bandage (Aquacel Foam) 4 X 4 bandage (7 sources) Start: 02-17-2024 Foam Bandage ( Aquacel Foam) 4 X 4 bandage Active 0 .Route 10 0 February 17, 2024 12:00am As directed Start: 02-17-2024 Foam Bandage ( Aquacel Foam) 4 X 4 bandage Active 0 .Route 10 February 17, 2024 12:00am As directed Handicap Placard (15 sources) Start: 11-02-[address] Active 0 .ROUTE .MEDSUPPLY 1 0 November 02, 2022 12:00am Other reduced mobility As directed, length of time 3 years Start: 11-02-[address] Active 0 .ROUTE .MEDSUPPLY 1 November 01, 2022 11:00pm As directed, length of time 3 years Start: 11-02-[address] Active 0 .ROUTE .MEDSUPPLY 1 November 02, 2022 12:00am As directed, length of time 3 years losartan potassium 25 mg oral tablet (20 sources) Angiotensin 2 Receptor Radha Start: 11-06-2024 End: 03-28-2025 take 1 tablet by mouth once daily magnesium citrate 58.2 mg/ml oral solution (11 sources) Start: 10-29-2020 magnesium citr ate solution Indications: Encounter for screening colonoscopy for lxc-grzj-mzpj patient Drink 1 bottle of magnesium citrate at 2 P.M. Drink 1 bottle of magnesium citrate at 8 P.M. . 592 mL 0 10/29/2020 Active meclizine hydrochloride 25 mg oral tablet (13 sources) Antiemetic Start: 02-11-2025 End: 02-11-2025 take 25 mg by mouth once 25 mg, oral, Once, On 02/11/25 at 2255, For 1 dose Start: 11-27-20[address] [facility] four times daily as needed for dizziness Start: 11-27-2024 End: 02-19-2025 meloxicam 7.5 mg oral tablet (20 sources) Nonsteroidal Anti-inflammatory Drug Start: 09-16-2018 take 1-2 tablets by mouth once daily as needed for pain meloxicam 7.5 MG Tab 1-2 pills po every day w food prn pain. Stop if persistent stomach pain. 30 tablet 1 09/16/2018 Active multivit-min/iro n/folic/lutein (CENTRUM SILVER WOMEN ORAL) (17 sources) multivit-min/iro n/folic/lutein (CENTRUM SILVER WOMEN ORAL) Take by mouth . 0 Active Nebulizer (20 sources) Start: 10-06-2021 Nebulizer Active 0 .ROUTE .MEDSUPPLY 1 October 06, 2021 11:27am As directed Start: 10-06-2021 Nebulizer Acti ve 0 .ROUTE .MEDSUPPLY 1 0 October 06, 2021 12:00am As directed Start: 10-06-2021 Nebulizer Acti ve 0 .ROUTE .MEDSUPPLY October 05, 2021 11:00pm As directed Start: 10-06-2021 Nebulizer Acti ve 0 .ROUTE .MEDSUPPLY October 06, 2021 12:00am As directed ondansetron 4 mg disintegrating oral tablet (20 sources) Serotonin-3 Receptor Antagonist Start: 08-26-2018 take 1 tablet by mouth every four hours as needed ondansetron 4 MG Tab Dispersible tablet Take 1 tablet by mouth every 4 hours as needed for Nausea. Place on tongue 10 tablet 0 08/26/2018 Active oxygen (O2) therapy (1 source) Start: 02-11-2025 1 Dose, inhalation, Continuous PRN, oxygen, Starting on 02/11/25 at 2237, Device: Nasal Cannula, Rate in liters per minute: 2 LPM, Keep O2 Sat Above: 90% polyethylene glycol 3350 88162 mg powder for oral solution (11 sources) Osmotic Laxative Start: 10-29-2020 polyethylene glycol (MIRALAX) 17 gram powder Indications: Encounter for screening colonoscopy for hmj-tpre-kuqj patient Mix 238 grams of Miralax in 1 Liter of Gatorade avoid red and purple. Drink mixture between 4 PM and 8 PM. . 238 g 0 10/29/2020 Active polyethylene glycol 3350 [id number] mg / potassium chloride 2970 mg / sodium bicarbonate 6740 mg / sodium chloride 5860 mg / sodium sulfate 06913 mg powder for oral solution (1 source) Osmotic Laxative Start: 10-03-2020 End: 10-03-2020 polyethylene glycol (GoLYTELY) 236-22.74-6.74 -5.86 gram solution Take 4,000 mL by mouth once for 1 dose . 4000 mL 0 10/03/2020 10/03/2020 Active potassium chloride 8 meq extended release oral tablet (20 sources) Start: 11-27-2024 Start: 03-19-2021 take 2 tablets by [facility] twice daily potassium chloride 10 MEQ CR tablet Indications: HTN (hypertension), benign TAKE 2 (TWO) TABLETS (20 MEQ TOTAL) BY MOUTH 2 (TWO) TIMES A DAY . 360 tablet 1 03/19/2021 Active Start: 01-31-2021 End: 02-26-2021 take 2 tablets by mouth once daily Potassium Chloride 10 mEq tablet extended release Discontinued 20 meq PO DAILY January 31, 2021 12:00am February 26, 2021 1:57pm hypokalemia Start: 01-31-2021 End: 02-26-2021 Start: 01-31-2021 End: 02-26-2021 take 20 mEq by mouth once daily Potassium Chloride Dis continued 20 MEQ PO DAILY January 31, 2021 12:00am February 26, 2021 1:57pm Start: 04-07-2020 End: 05-24-2020 take 2 tablets by mouth twice daily potassium chloride 20 mEq TbER TAKE 2 TABLETS BY MOUTH TWICE A DAY 360 tablet 2 04/07/2020 05/24/2020 Discontinued Start: 06-09-2019 End: 09-09-2020 take 2 tablets by mouth twice daily potassium chloride 10 MEQ CR tablet Indications: HTN (hypertension), benign Take 2 (two) tablets (20 mEq total) by mouth 2 (two) times a day . 360 tablet 1 09/09/2020 Active Start: 06-03-2019 End: 06-09-2019 potassium chloride (KAYCIEL) 20 mEq/15 mL solution 40 mEq Start: 06-03-2019 End: 06-03-2019 take 20 mEq intravenous route every hour potassium chloride 20 mEq in 100 mL IVPB stool softener (3 sources) Start: 01-30-2022 stool softener Active PO January 29, 2022 11:00pm Start: 01-30-2022 stool softener Active PO January 30, 2022 12:00am traZODone hydrochloride 50 mg oral tablet (20 sources) Serotonin Reuptake Inhibitor Start: 11-06-2024 End: 03-28-2025 take 1 tablet by mouth at bedtime as needed Start: 11-06-2024 End: 01-22-2025 Walker (Ultra-Light Rollator) misc (20 sources) Start: 12-14-2023 Walker (Ultra- Light Rollator) misc Active 0 .Route 1 December 14, 2023 12:54pm Osteoarthritis Debility Polyosteoarthritis, unspecified Other malaise As directed Start: 12-14-2023 Walker (Ultra- Light Rollator) misc Active 0 .Route 1 December 14, 2023 12:54pm As directed Start: 12-03-2023 End: 12-14-2023 Walker (Ultra-Light Rollator ) misc Discontinued 0 .Route 1 December 03, 2023 12:00am December 14, 2023 12:54pm Osteoarthritis Debility Polyosteoarthritis, unspecified Other malaise As directed Start: 12-03-2023 End: 12-14-2023 Walker (Ultra-Light Rollator ) misc Discontinued 0 .Route 1 December 03, 2023 12:00am December 14, 2023 12:54pm As directed Start: 02-11-2023 Walker (Ultra- Light Rollator) misc Active 0 .Route 1 February 11, 2023 12:00am Osteoarthritis Debility Unspecified osteoarthritis, unspecified site Other malaise As directed Start: 02-11-2023 Walker (Ultra- Light Rollator) misc Active 0 .Route 1 February 10, 2023 11:00pm As directed Start: 02-11-2023 Walker (Ultra- Light Rollator) misc Active 0 .Route February 11, 2023 12:00am As directed Completed/Discontinued Medications Medication Drug Class(es) Dates Sig (Normalized) Sig (Original) acetaminophen 325 mg oral tablet (20 sources) Start: 06-02-2019 End: 06-09-2019 acetaminophen (TYLENOL) tablet 650 mg Start: 09-16-2018 acetaminophen 500 MG Tab tablet 1-2 pills po q 8 hrs prn pain. Max 3000 mg/d including amount in other medicines. 180 tablet 1 09/16/2018 Active amLODIPine 10 mg oral tablet (1 source) Dihydropyridine Calcium Channel Radha Start: 06-27-2010 take 1 tablet by mouth once daily amLODIPine (NORVASC) 10 mg ORAL tablet Indications: Unspecified essential hypertension Take one(1) tablet daily. 90 Tab 3 06/27/2010 Active Comment on above: Take one(1) tablet d aily. amoxicillin 500 mg / clavulanate 125 mg oral tablet (20 sources) Penicillin-class Antibacterial Start: 08-11-2024 End: 08-28-2024 Amoxicillin-Pot Clavulanate 500-125 mg tablet Discontinued 1 {tbl} PO TWICE A DAY 20 August 11, 2024 1:00am August 28, 2024 11:51am Start: 08-11-2024 End: 08-28-2024 apixaban 5 mg oral tablet (20 sources) Factor Xa Inhibitor Start: 04-07-2022 End: 09-24-2022 take 2 tablets by mouth twice daily, then take 1 tablet by mouth twice daily Apixaban (Eliquis) 5 mg tablet Discontinued 5 mg PO TWICE A DAY 180 April 07, 2022 12:00am September 24, 2022 1:52pm Take 10 mg BID x 7 days then 5 mg BID. Start: 04-07-2022 End: 05-31-2023 take 1 tablet by mouth twice daily Apixaban (Eliquis) 5 mg Tablet Discontinued 5 mg PO TWICE A DAY August 14, 2022 1:00am September 24, 2022 1:53pm atorvastatin 40 mg oral tablet (20 sources) HMG-CoA Reductase Inhibitor Start: 06-20-2023 End: 10-17-2024 take 1 tablet by mouth at bedtime Atorvastatin 40 mg tablet Discontinued 40 mg PO AT BEDTIME 90 March 22, 2024 12:53pm October 17, 2024 4:04pm Start: 02-23-2023 End: 05-31-2023 take 1 tablet by mouth at bedtime Atorvastatin 40 mg tablet Discontinued 40 mg PO AT BEDTIME 90 March 17, 2023 11:01am May 31, 2023 5:00pm Start: 01-30-2022 End: 02-23-2023 Atorvastatin 80 mg tablet Discontinued 40 mg PO AT BEDTIME 90 2 January 30, 2022 3:54pm February 23, 2023 4:04pm Start: 01-30-2022 End: 02-23-2023 Start: 01-30-2022 End: 02-23-2023 take 40 mg by mouth at bedtime Atorvastatin Discontinu ed 40 MG PO AT BEDTIME 90 January 30, 2022 3:54pm February 23, 2023 4:04pm Start: 09-13-2020 End: 01-30-2022 take 1 tablet by mouth at bedtime Atorvastatin 40 mg tablet Discontinued 40 mg PO AT BEDTIME January 31, 2021 12:00am March 13, 2021 2:19pm HIGH CHOLESTEROL Azithromycin (2 sources) Macrolide Antimicrobial Start: 03-19-2020 End: 05-24-2020 azithromycin (Z-ANGELES) 5 day dose pack As directed . 6 tablet 0 03/19/2020 05/24/2020 Discontinued Start: 03-19-2020 azithromycin ( Z-ANGELES) 5 day dose pack As directed . 6 tablet 0 03/19/2020 Active baclofen 10 mg oral tablet (20 sources) gamma-Aminobutyric Acid-ergic Agonist Start: 09-16-2018 End: 11-22-2018 baclofen 10 MG Tab tablet 1/2 pill po at bedtime. Can increase by 1/2 pill every 3 days up to max of 2 pills po at bedtime. Don't stop abruptly. 30 tablet 1 09/16/2018 11/22/2018 Discontinued (Ineffective) betamethasone 0.5 mg/ml / clotrimazole 10 mg/ml topical cream (15 sources) Azole Antifungal, Corticosteroid Start: 06-18-2020 End: 09-09-2020 clotrimazole-betamet hasone (LOTRISONE) cream APPLY TO AFFECTED AREA TWICE A DAY 60 g 0 08/16/2020 09/09/2020 Discontinued Start: 06-09-2019 End: 06-08-2020 clotrimazole-betamethasone ( LOTRISONE) cream Apply topically 2 (two) times a day . Rash on both legs. . 30 g 0 06/09/2019 06/08/2020 Active Start: 06-06-2019 End: 06-09-2019 clotrimazole-betamethasone ( LOTRISONE) cream bumetanide 1 mg oral tablet (20 sources) Loop Diuretic Start: 06-20-2023 End: 12-03-2023 take 1 tablet by mouth twice daily Bumetanide 1 mg tablet Discontinued 1 mg PO TWICE A DAY 14 0 June 20, 2023 1:00am December 03, 2023 9:59am ceFAZolin 2000 mg injection (2 sources) Cephalosporin Antibacterial Start: 06-05-2019 End: 06-09-2019 take 2000 mg intravenous route every eight hours ceFAZolin (ANCEF) IVPB 2 g (premix) Start: 06-03-2019 End: 06-05-2019 take 1000 mg intravenous route every eight hours ceFAZolin (ANCEF) IVPB 1 g (premix) cephalexin 500 mg oral capsule (20 sources) Cephalosporin Antibacterial Start: 01-05-2025 End: 2025 take 1 capsule by mouth twice daily Cephalexin 500 mg capsule Discontinued 500 mg PO TWICE A DAY 28 14 January 05, 2025 12:00am 2025 2:58pm Start: 11-24-2024 End: 2025 take 1 capsule by mouth once daily Cephalexin 500 mg capsule Discontinued 500 mg PO DAILY 20 0 November 24, 2024 12:00am January 19, 2025 12:59pm Start: 09-10-2023 End: 11-05-2023 take 1 capsule by mouth twice daily Cephalexin 500 mg capsule Discontinued 500 mg PO TWICE A DAY 14 0 September 10, 2023 12:00am November 05, 2023 8:34am Start: 06-20-2023 End: 09-01-2023 take 1 capsule by mouth three times daily Cephalexin 500 mg capsule Discontinued 500 mg PO THREE TIMES A DAY 21 7 0 June 20, 2023 1:00am September 01, 2023 2:20pm Start: 06-20-2023 End: 09-01-2023 Start: 08-21-2022 End: 08-24-2022 take 1 capsule by mouth every six hours Cephalexin 500 mg capsule Discontinued 500 mg PO EVERY 6 HOURS 28 7 0 August 21, 2022 1:00am August 27, 2022 1:00am August 24, 2022 1:16pm Start: 08-21-2022 End: 08-24-2022 ciprofloxacin 500 mg oral tablet (20 sources) Quinolone Antimicrobial Start: 08-11-2024 End: 10-18-2024 take 1 tablet by mouth twice daily Ciprofloxacin Hcl 500 mg tablet Discontinued 500 mg PO TWICE A DAY 20 0 September 29, 2024 12:00am October 18, 2024 1:35pm Start: 02-25-2024 End: 08-02-2024 take 1 tablet by mouth twice daily Ciprofloxacin Hcl 500 mg tablet Discontinued 500 mg PO TWICE A DAY 20 0 March 31, 2024 12:00am June 08, 2024 6:25pm COMPOUNDED PRESCRIPTION (1 source) Start: 10-19-2006 COMPOUNDED PRESCRIPTION Nasal CPAP to maintain on nasal CPAP at a pressure of 10cm of H2O and ramp circuit and humidifcation. Dx is Obstructive sleep apnea. 1 0 10/19/2006 Active Comment on above: Nasal CPAP to [place] in on nasal CPAP at a pressure of 10cm of H2O and ramp circuit and humidifcation. Dx is Obstructive sleep apnea. diazePAM 5 mg oral tablet (3 sources) Benzodiazepine Start: 01-13-2019 End: 03-16-2019 diazepam 5 MG Tab tablet Indications: Lumbar facet joint pain , Osteoarthritis of facet joint of lumbar spine 1 pill po 30 min prior to MRI/procedure. Can add 2nd pill if needed. 2 tablet 0 01/13/2019 02/16/2019 Discontinued (Therapy completed) dicloxacillin 250 mg oral capsule (20 sources) Penicillin-class Antibacterial Start: 04-08-2021 End: 04-22-2021 take 1 capsule by mouth every six hours Dicloxacillin 250 mg Capsule Discontinued 250 mg PO EVERY 6 HOURS April 08, 2021 12:00am April 22, 2021 9:53am dimenhyDRINATE 50 mg oral tablet (9 sources) Start: 12-07-2024 End: 01-19-2025 take 1 tablet by mouth every four to six hours as needed for dizziness Dimenhydrinate 50 mg tablet Discontinued 50 mg PO EVERY 4-6 HOURS as needed for dizziness or vertigo 30 December 07, 2024 12:00am January 19, 2025 1:00pm Vertigo Dizziness and giddiness Start: 12-07-2024 End: 01-19-2025 doxycycline hyclate 100 mg oral tablet (20 sources) Tetracycline-class Drug Start: 10-01-2022 End: 11-02-2022 take 1 tablet by mouth twice daily Doxycycline Hyclate 100 mg tablet Discontinued 100 mg PO TWICE A DAY 20 0 October 01, 2022 12:00am November 02, 2022 2:11pm Start: 12-31-2021 End: 02-18-2022 take 1 tablet by mouth twice daily Doxycycline Hyclate 100 mg tablet Discontinued 100 mg PO TWICE A DAY 14 7 0 December 31, 2021 12:00am February 18, 2022 9:39am Start: 02-05-2021 End: 02-26-2021 take 1 capsule by mouth twice daily Doxycycline Monohydrate 100 mg Capsule Discontinued 100 mg PO TWICE A DAY 15 0 February 05, 2021 12:00am February 26, 2021 1:55pm DULoxetine 60 mg delayed release oral capsule (20 sources) Serotonin and Norepinephrine Reuptake Inhibitor Start: 06-20-2023 End: 12-03-2023 take 1 capsule by mouth once daily Duloxetine 60 mg capsule,delayed release(DR/EC) Discontinued 60 mg PO DAILY 90 0 September 17, 2023 8:35am December 03, 2023 9:37am Start: 03-19-2021 End: 05-31-2023 take 1 capsule by mouth once daily Duloxetine 60 mg capsule,delayed release(DR/EC) Discontinued 0 .ROUTE .COMPLEX 90 3 August 24, 2022 11:50am May 31, 2023 5:00pm TAKE 1 CAPSULE BY MOUTH DAILY Start: 09-09-2020 End: 03-13-2021 take 1 capsule by mouth once daily Duloxetine 60 mg capsule,delayed release(DR/EC) Discontinued 60 mg PO DAILY January 31, 2021 12:00am March 13, 2021 2:19pm DEPRESSION Start: 05-24-2020 End: 05-25-2021 take 1 capsule by mouth once daily DULoxetine (CYMBALTA) 30 MG capsule Indications: Type 2 diabetes mellitus with diabetic polyneuropathy, without long-term current use of insulin (HCC) Take 1 (one) capsule (30 mg total) by mouth daily . 30 capsule 11 05/25/2020 09/09/2020 Discontinued (Reorder) 0.4 ml enoxaparin sodium 100 mg/ml prefilled syringe (1 source) Low Molecular Weight Heparin Start: 06-04-2019 End: 06-09-2019 enoxaparin (LOVENOX) syringe 40 mg fenofibrate 48 mg oral tablet (20 sources) Peroxisome Proliferator Receptor alpha Agonist Start: 09-13-2020 End: 02-17-2024 take 1 tablet by mouth once daily Fenofibrate Nanocrystallized 48 mg tablet Discontinued 48 mg PO DAILY January 31, 2021 12:00am March 13, 2021 2:18pm HIGH CHOLESTEROL ferrous sulfate 325 mg delayed release oral tablet (6 sources) Start: 01-19-2025 End: 03-20-2025 take 1 tablet by mouth every other day Ferrous Sulfate 325 mg (65 mg iron) tablet,delayed release (DR/EC) Discontinued 325 mg PO every other day 30 60 0 January 19, 2025 12:00am March 19, 2025 12:00am March 20, 2025 12:09am flu vacc [id number](65yr up)PF (FLUZONE HIGH DOSE) syringe 0.5 mL (1 source) Start: 06-02-2019 End: 06-03-2019 inject 0.5 mL by intramuscular injection every twenty-four hours as needed flu vacc [id number](65yr up)PF (FLUZONE HIGH DOSE) syringe 0.5 mL fluconazole 100 mg oral tablet (1 source) Azole Antifungal Start: 06-06-2019 End: 06-09-2019 fluconazole (DIFLUCAN) tablet 200 mg fluticasone propionate 0.05 mg/actuat metered dose nasal spray (9 sources) Corticosteroid Start: 12-07-2024 End: 01-19-2025 Fluticasone Propionate 50 mcg/actuation spray,suspension Discontinued 2 NMA INTRANASAL daily 16 December 07, 2024 12:00am January 19, 2025 1:00pm Rhinosinusitis Chronic sinusitis, unspecified administer into each nostril Start: 12-07-2024 End: 01-19-2025 furosemide 40 mg oral tablet (20 sources) Loop Diuretic Start: 01-31-2021 End: 09-04-2022 take 1 tablet by mouth twice daily Furosemide 40 mg tablet Discontinued 40 mg PO TWICE A DAY 180 4 August 28, 2022 5:40pm September 04, 2022 12:58pm HEART FAILURE Start: 01-31-2021 End: 10-13-2021 take 1 tablet by mouth once daily Furosemide 40 mg tablet Discontinued 40 mg PO DAILY January 31, 2021 12:00am May 07, 2021 5:35pm HEART FAILURE Start: 09-09-2020 take 1 tablet by chilo th once in the evening furosemide (LASIX) 40 MG tablet Indications: Essential (primary) hypertension Take 1 (one) tablet (40 mg total) by mouth See Admin Instructions 40 mg AM and 20 mg PM per patient . 180 tablet 1 09/09/2020 Active Start: 06-02-2019 furosemide (LA SIX) injection 20 mg Start: 05-02-2019 End: 09-09-2020 furosemide (LASIX) 40 MG tab let Take 40 mg by mouth 2 (two) times a day 40 mg AM and 20 mg PM per patient . 3 05/02/2019 09/09/2020 Discontinued (Reorder) Start: 05-10-2009 End: 11-10-2010 take 1 tablet by mouth once daily furosemide 20 mg ORAL tablet Indications: Edema , Unspecified essential hypertension Take 1 tablet by mouth once daily. Use instead of triam/HCTZ since not available 30 tablet 5 11/10/2010 Active take 1 tablet by chilo th once daily furOSEmide 40 MG Tab tablet Take 40 mg by mouth daily. 0 Active Comment on above: Take 1 tablet by chilo th once daily. Use instead of triam/HCTZ since not available Take one(1) tablet d aily as needed for swelling gabapentin 100 mg oral capsule (20 sources) Anti-epileptic Agent Start: 3 End: take 1 capsule by mouth twice daily Gabapentin 100 mg capsule Discontinued 100 mg PO TWICE A DAY 60 2 December 10, 2022 1:41pm March 29, 2023 10:12am Start: 01-31-2021 End: 02-26-2021 Gabapentin 100 mg capsule Discontinued January 31, 2021 12:00am February 26, 2021 1:55pm PAIN Start: 01-31-2021 End: 02-26-2021 Start: 11-22-2020 End: 02-26-2021 Gabapentin Discontinued 2020 12:00am February 26, 2021 1:55pm Start: 05-27-2020 End: 09-09-2020 take 1 capsule by mouth once daily at bedtime gabapentin (NEURONTIN) 100 MG capsule TAKE 1 CAPSULE BY MOUTH EVERYDAY AT BEDTIME 90 capsule 0 08/16/2020 09/09/2020 Discontinued Start: 02-12-2020 End: 02-16-2020 take 1 capsule by mouth once daily at bedtime gabapentin (NEURONTIN) 100 MG capsule TAKE 1 CAPSULE BY MOUTH EVERYDAY AT BEDTIME 90 capsule 0 02/12/2020 02/16/2020 Discontinued (Patient's Request) Start: 10-07-2018 End: 06-09-2019 take 1 capsule by mouth once daily gabapentin 100 MG Cap capsule 1 po daily 60 capsule 1 01/13/2019 04/14/2019 Active gentamicin 0.001 mg/mg topic al ointment (20 sources) Start: 10-06-2024 End: 11-06-2024 Gentamicin 0.1 % ointment Discontinued 1 NMA TOPICAL DAILY 30 0 October 06, 2024 12:00am November 06, 2024 10:46am Start: 04-07-2020 gentamicin (GA RAMYCIN) 0.1 % cream APPLY TO LEFT LEG ULCER SITE ONCE A DAY 0 04/07/2020 Active 12 hr guaiFENesin 1200 mg extended release oral tablet (20 sources) Start: 10-18-2024 End: 11-27-2024 take 1 tablet by mouth every twelve hours Guaifenesin 1,200 mg tablet extended release 12hr Discontinued 1200 mg PO Q12H 60 6 October 18, 2024 12:00am November 27, 2024 6:21pm Start: 02-05-2021 End: 04-22-2021 take 1 tablet by mouth twice daily, then take 1 tablet by mouth every twelve hours Guaifenesin (Mucus Relief Er) 1,200 mg Tablet Extended Release 12hr Discontinued 1200 mg PO TWICE A DAY 10 0 February 05, 2021 12:00am April 22, 2021 9:54am Start: 02-05-2021 End: 04-22-2021 hydroCHLOROthiazide 25 mg / triamterene 37.5 mg oral capsule (1 source) Potassium-sparing Diuretic, Thiazide Diuretic Start: 06-27-2010 End: 01-04-2012 take 1 capsule by mouth once daily triamterene-hydrochlorothiazide (DYAZIDE) 37.5-25 mg ORAL per capsule Indications: Unspecified essential hypertension Take one (1) capsule daily. 90 Cap 3 06/27/2010 01/04/2012 Discontinued Comment on above: Take one (1) capsule daily. hydrocortisone 25 mg/ml topical cream (20 sources) Corticosteroid Start: 10-29-2021 End: 05-31-2023 Hydrocortisone 2.5 % cream Discontinued 1 NMA TOPICAL TWICE A DAY as needed for skin irritation 28.35 3 October 29, 2021 12:00am May 31, 2023 4:59pm 200 actuat ipratropium bromide 0.017 mg/actuat metered dose inhaler (20 sources) Anticholinergic Start: 09-24-2023 End: 12-03-2023 Ipratropium Ullin 17 mcg/actuation HFA aerosol inhaler Discontinued 1 NMA INHALATION EVERY 6 HOURS as needed for shortness of breath or wheezing 12.9 0 September 24, 2023 12:00am December 03, 2023 9:38am Start: 09-24-2023 End: 12-03-2023 Start: 09-24-2023 Ipratropium Br omide Active 1 INH INHALATION EVERY 6 HOURS 12.9 September 24, 2023 12:00am levoFLOXacin 500 mg oral tablet (8 sources) Quinolone Antimicrobial Start: 01-05-2025 End: 01-19-2025 take 1 tablet by mouth once daily Levofloxacin 500 mg tablet Discontinued 500 mg PO DAILY 10 January 05, 2025 12:00am January 19, 2025 1:00pm levothyroxine sodium 0.1 mg oral tablet (20 sources) l-Thyroxine Start: 08-14-2022 End: 11-02-2022 take 1 capsule by mouth once daily Levothyroxine 100 mcg Capsule Discontinued 100 ug PO DAILY August 14, 2022 1:00am November 02, 2022 2:12pm Start: 01-26-2020 End: 02-14-2025 take 1 tablet by mouth once daily for hypothyroidism Levothyroxine 100 mcg tablet Discontinued 0 .ROUTE .COMPLEX 90 3 April 05, 2024 4:51pm February 14, 2025 4:17pm 100 MCG ORALLY DAILY FOR HYPOTHYROIDISM Start: 06-03-2019 End: 02-16-2020 take 50 ug by mouth once 50 mcg, Oral, Once, Sat 05/21 10/07 at 1000, For 1 dose For patients on continuous tube feed: Hold TF from 1 hr before until 1 hr after each dose. TF rate may need adjustment to meet caloric needs. Start: 05-13-2010 levothyroxine (SYNTHROID) 25 mcg ORAL tablet Indications: Unspecified hypothyroidism Take one(1) tablet on Wednesday and Wednesday in addition to 112 mcg pill 30 Tab 5 05/13/2010 Active Start: 08-16-2009 levothyroxine sodium(SYNTHROID 112 MCG TAB) Indications: Unspecified hypothyroidism Take one(1) tablet daily. 30 11 08/16/2009 Active take 1 tablet by mouth once noe y levothyroxine 50 MCG Tab tablet Take 50 mcg by mouth daily. 0 Active Comment on above: Take one(1) tablet d aily. Take one(1) tablet o n Wednesday and Wednesday in addition to 112 mcg pill lovastatin 40 mg oral tablet (1 source) HMG-CoA Reductase Inhibitor Start: 05-13-20 10 take 1 tablet by mouth once daily at bedtime Lovastatin (MEVACOR) 40 mg ORAL tablet Indications: Other and unspecified hyperlipidemia Take one(1) tablet daily at bedtime. 90 Tab 3 05/13/2010 Active Comment on above: Take one(1) tablet d aily at bedtime. metFORMIN hydrochloride 500 mg oral tablet (20 sources) Biguanide Start: 02-06-20 End: 07-22-19 take 1 tablet by mouth twice daily Metformin 500 mg tablet Discontinued 500 mg PO TWICE A DAY 180 2 March 18, 2021 8:47am July 22, 2021 1:35pm Start: 02-05-2021 End: 04-14-2022 take 2 tablets by mouth twice daily Metformin 500 mg tablet Discontinued 1000 mg PO TWICE A DAY 360 90 2 October 29, 2021 11:35am April 14, 2022 1:22pm Start: 02-05-2021 End: 04-14-2022 metoprolol tartrate 50 mg oral tablet (1 source) beta-Adrenergic Rahda Start: 07-03-2010 take 1 tablet by mouth once daily metoprolol tartrate 50 mg ORAL tablet Take one(1) tablet two(2) times daily. 180 Tab 3 07/03/2010 Active Comment on above: Take one(1) tablet t wo(2) times daily. metroNIDAZOLE 500 mg oral tablet (20 sources) Nitroimidazole Antimicrobial Start: 11-10-2024 End: 11-27-2024 take 1 tablet by mouth twice daily Metronidazole 500 mg tablet Discontinued 500 mg PO TWICE A DAY 20 0 November 10, 2024 12:00am November 27, 2024 6:21pm Start: 08-18-2024 End: 10-18-2024 take 1 tablet by mouth twice daily Metronidazole 500 mg tablet Discontinued 500 mg PO TWICE A DAY 20 0 August 18, 2024 1:00am October 18, 2024 1:36pm Start: 12-24-2022 End: 03-30-2023 take 1 tablet by mouth twice daily Metronidazole 500 mg tablet Discontinued 500 mg PO TWICE A DAY December 24, 2022 12:00am March 30, 2023 11:12am Start: 08-05-2022 End: 11-02-2022 take 1 tablet by mouth every twelve hours Metronidazole 500 mg tablet Discontinued 500 mg PO Q12H August 05, 2022 1:00am November 02, 2022 2:12pm Start: 08-05-2022 End: 11-02-2022 Start: 06-08-2022 End: 06-22-2022 take 1 tablet by mouth three times daily Metronidazole 500 mg tablet Discontinued 500 mg PO THREE TIMES A DAY 42 14 0 June 08, 2022 1:00am June 21, 2022 1:00am June 22, 2022 1:04am Start: 06-08-2022 End: 06-22-2022 Mirabegron (11 sources) beta3-Adrenergic Agonist Start: 09-24-2022 End: 11-02-2022 Mirabegron 8 mg/mL suspension,extended rel recon Discontinued mg PO September 24, 2022 12:00am November 02, 2022 2:13pm Start: 09-24-2022 End: 11-02-2022 Start: 09-24-2022 End: 11-02-2022 Mirabegron Discontinued MG P O September 23, 2022 11:00pm November 02, 2022 1:13pm Start: 09-24-2022 End: 11-02-2022 Mirabegron Discontinued MG P O September 24, 2022 12:00am November 02, 2022 2:13pm Start: 09-24-2022 Mirabegron Act daisy MG PO September 24, 2022 12:00am Mirabegron 8 mg/mL suspension,extended rel recon (6 sources) Start: 09-24-2022 End: 11-02-2022 Mirabegron 8 mg/mL suspension,extended rel recon Discontinued mg PO September 24, 2022 12:00am November 02, 2022 2:13pm mupirocin 0.02 mg/mg topical ointment (20 sources) RNA Synthetase Inhibitor Antibacterial Start: 05-12-2024 End: 08-28-2024 Mupirocin 2 % ointment Discontinued 1 NMA TOPICAL TWICE A DAY 15 0 May 12, 2024 1:00am August 28, 2024 11:52am to inside of each nostril naloxone (NARCAN) injection 0.1 mg (1 source) Start: 06-02-2019 End: 06-09-2019 naloxone (NARCAN) injection 0.1 mg nitrofurantoin, macrocrystals 50 mg oral capsule (20 sources) Nitrofuran Antibacterial Start: 12-24-2022 End: 03-29-2023 take 1 capsule by mouth twice daily at mealtime Nitrofurantoin Macrocrystal 50 mg capsule Discontinued 50 mg PO TWICE A DAY December 24, 2022 12:00am March 29, 2023 10:12am must administer with a meal/food nystatin [id number] unt/ml topical cream (1 source) Polyene Antifungal Start: 12-19-2007 apply 30 g topically twice daily NYSTATIN 100,000 UNIT/G TOPICAL CREAM Indications: Candidiasis of skin and nails Apply to affected skin twice daily 30 gram 2 12/19/2007 Active Comment on above: Apply to affected sk in twice daily omeprazole 40 mg delayed release oral capsule (20 sources) Proton Pump Inhibitor Start: 03-18-2021 End: 07-06-2022 take 1 capsule by mouth once daily 30 minutes before breakfast Omeprazole 40 mg capsule,delayed release(DR/EC) Discontinued 40 mg PO DAILY 60 1 May 09, 2021 10:20am October 29, 2021 11:36am Take 30 minutes before breakfast oxybutynin chloride 5 mg oral tablet (20 sources) Cholinergic Muscarinic Antagonist Start: 06-20-2023 End: 01-22-2025 take 1 tablet by mouth twice daily Oxybutynin Chloride 5 mg tablet Discontinued 5 mg PO TWICE A DAY 180 0 October 19, 2024 1:31pm January 22, 2025 1:06pm bladder Start: 01-31-2021 End: 04-22-2021 take 1 tablet by mouth once daily Oxybutynin Chloride 5 mg tablet Discontinued 5 mg PO DAILY January 31, 2021 12:00am April 22, 2021 9:53am OVERACTIVE BLADDER Start: 04-27-2020 End: 05-31-2023 take 1 tablet by mouth twice daily Oxybutynin Chloride 5 mg tablet Discontinued 0 .ROUTE .COMPLEX 180 November 18, 2022 8:43am May 31, 2023 4:59pm TAKE 1 TABLET BY MOUTH TWICE A DAY Start: 04-20-2019 End: 06-09-2019 take 1 tablet by mouth twice daily oxybutynin (DITROPAN) 5 MG tablet Take 5 mg by mouth 2 (two) times a day . 5 04/20/2019 Active Start: 06-27-2010 take 1 tablet by chilo th once daily oxybutynin 5 mg ORAL tablet Indications: Mixed stress and urge urinary incontinence Take one(1) tablet two(2) times daily. 60 Tab 5 06/27/2010 Active take 1 tablet by chilo th three times daily oxybutynin 5 MG Tab Take 5 mg by mouth 3 times daily. 0 Active Comment on above: Take one(1) tablet t wo(2) times daily. pantoprazole 40 mg delayed release oral tablet (20 sources) Proton Pump Inhibitor Start: 07-06-19 End: 12-20-19 take 1 tablet by mouth once daily Pantoprazole 40 mg tablet,delayed release (DR/EC) Discontinued 40 mg PO DAILY 90 2 April 05, 2024 4:51pm December 19, 2024 12:09pm 40 MG ORALY DAILY pravastatin sodium 40 mg oral tablet (20 sources) HMG-CoA Reductase Inhibitor Start: 02-12-20 End: 09-14-19 take 1 tablet by mouth once daily pravastatin (PRAVACHOL) 40 MG tablet Indications: Hypercholesteremia Take 1 (one) tablet (40 mg total) by mouth daily . 90 tablet 1 09/09/2020 09/13/2020 Discontinued Start: 03-10-2019 End: 06-09-2019 take 1 tablet by mouth once daily pravastatin (PRAVACHOL) 40 MG tablet Take 40 mg by mouth daily . 2 03/10/2019 Active take 2 tablets by mo [facility] once daily pravastatin 20 MG Tab tablet Take 40 mg by mouth daily. 0 Active predniSONE 50 mg oral tablet (20 sources) Start: 09-24-2023 End: 12-03-2023 take 1 tablet by mouth once daily Prednisone 50 mg tablet Discontinued 50 mg PO DAILY 5 0 September 24, 2023 12:00am December 03, 2023 9:38am spironolactone 25 mg oral tablet (20 sources) Aldosterone Antagonist Start: 04-16-2020 End: 11-04-2021 take 1 tablet by mouth once daily spironolactone (ALDACTONE) 25 MG tablet Indications: Essential (primary) hypertension TAKE 1 (ONE) TABLET (25 MG TOTAL) BY MOUTH DAILY . 90 tablet 1 05/01/2021 11/04/2021 Discontinued Start: 12-12-2019 take 1 tablet by chilo once daily spironolactone (ALDACTONE) 25 MG tablet TAKE 1 TABLET BY MOUTH EVERY DAY 90 tablet 0 12/12/2019 Active Start: 06-06-2019 End: 07-10-2019 take 1 tablet by mouth once daily spironolactone (ALDACTONE) 25 MG tablet Take 1 (one) tablet (25 mg total) by mouth daily Start: 06/10/19. 30 tablet 0 06/10/2019 07/10/2019 Active sucralfate 1000 mg oral tablet (20 sources) Aluminum Complex Start: 08-14-2022 End: 05-31-2023 take 1 tablet by mouth twice daily Sucralfate 1 gram Tablet Discontinued 1 g PO TWICE A DAY August 14, 2022 1:00am May 31, 2023 4:59pm Start: 06-05-2022 End: 07-06-2022 take 1 tablet by mouth at bedtime Sucralfate (Carafate) 1 gram tablet Discontinued 1 g PO BEFORE MEALS AND AT BEDTIME 60 0 June 05, 2022 1:00am July 06, 2022 2:00pm sulfamethoxazole 800 mg / trimethoprim 160 mg oral tablet (20 sources) Dihydrofolate Reductase Inhibitor Antibacterial, Sulfonamide Antimicrobial Start: 09-08-2024 End: 10-18-2024 Sulfamethoxazole-Trimethopri m 800-160 mg tablet Discontinued 1 {tbl} PO TWICE A DAY 20 0 September 29, 2024 12:00am October 18, 2024 1:36pm Start: 09-08-2024 End: 10-18-2024 Start: 06-09-2024 End: 08-02-2024 Sulfamethoxazole-Trimethopri m (Bactrim Ds) 800-160 mg tablet Discontinued 1 {tbl} PO TWICE A DAY 20 0 June 09, 2024 1:00am August 02, 2024 11:09am Start: 06-09-2024 End: 08-02-2024 Start: 08-24-2022 End: 09-11-2022 Sulfamethoxazole-Trimethopri m (Bactrim Ds) 800-160 mg tablet Discontinued 1 {tbl} PO TWICE A DAY 28 14 0 August 28, 2022 1:03pm September 10, 2022 12:00am September 11, 2022 12:04am Start: 08-24-2022 End: 09-11-2022 Start: 01-28-2020 End: 02-07-2020 take 1 tablet by mouth twice daily sulfamethoxazole-trimethoprim (BACTRIM DS,SEPTRA DS) 800-160 mg per tablet Take 1 (one) tablet by mouth 2 (two) times a day for 10 days . 20 tablet 0 01/28/2020 02/07/2020 Active tetracycline hydrochloride 500 mg oral capsule (20 sources) Tetracycline-class Antimicrobial Start: 06-08-2022 End: 06-22-2022 take 1 capsule by mouth every six hours Tetracycline 500 mg capsule Discontinued 500 mg PO EVERY 6 HOURS 56 14 0 June 08, 2022 1:00am June 21, 2022 1:00am June 22, 2022 1:04am traMADol hydrochloride 50 mg oral tablet (1 source) Opioid Agonist Start: 08-26-2018 End: 09-16-2018 take 1 tablet by mouth every six hours as needed for pain traMADol 50 MG Tab tablet Indications: Sciatica of left side Take 1 tablet by mouth every 6 hours as needed for Moderate Pain or Severe Pain for up to 3 days. 10 tablet 0 08/26/2018 09/16/2018 Discontinued vancomycin (VANCOCIN) 750 mg in sodium chloride 0.9% (NS) 250 mL IVPB (1 source) Start: 06-02-2019 End: 06-02-2019 vancomycin (VANCOCIN) 750 mg in sodium chloride 0.9% (NS) 250 mL IVPB (20 sources) Start: 10-18-2024 End: 11-27-2024 Start: 10-18-2024 Start: 02-17-2024 Start: 12-14-2023 Start: 12-03-2023 Start: 12-03-2023 End: 12-14-2023 Start: 02-11-2023 Start: 11-02-2022 Start: 09-24-2022 End: 11-02-2022 Start: 10-06-2021 Start: 06-09-2021 End: 11-27-2024 Start: 06-09-2021 Problems Active Problems Problem Classification Problem Date Documented Da te Episodic/Chronic Abdominal pain (20 sources) Abdominal pain; Translations: [Unspecified abdominal pain] Episodic Allergic reactions (20 sources) Inflammatory dermatosis; Translations: [Dermatitis, unspecified] Episodic Asthma (20 sources) Mild intermittent asthma; Translations: [Mild intermittent asthma, uncomplicated] Chronic Cardiac dysrhythmias (20 sources) Palpitations; Translations: [Palpitations] Episodic Chronic obstructive pulmonary disease and bronchiectasis (20 sources) Chronic obstructive lung disease; Translations: [Chronic obstructive pulmonary disease, unspecified] Onset: 0 02-16-2020 Chronic Chronic ulcer of skin (20 sources) Ulcer of lower extremity; Translations: [Non-pressure chronic ulcer of unspecified part of right lower leg with unspecified severity] Onset: 5 Chronic Conditions associated with dizziness or vertigo (20 sources) Dizziness; Translations: [Dizziness and giddiness] Onset: 5 10-03-2024 Episodic Conditions associated with dizziness or vertigo (2 sources) Conditions associated with dizziness or vertigo Congestive heart failure; nonhypertensive (20 sources) Chronic diastolic heart failure; Translations: [Chronic diastolic (congestive) heart failure] Onset: 0 05-24-2020 Chronic Diabetes mellitus with complications (16 sources) Type 2 diabetes mellitus; Translations: [Type 2 diabetes mellitus with diabetic polyneuropathy] Onset: 0 09-09-2020 Chronic Diabetes mellitus without complication (20 sources) Type 2 diabetes mellitus without complication; Translations: [Type 2 diabetes mellitus] Onset: 0 02-16-2020 Chronic Disorders of lipid metabolism (20 sources) Hypercholesterolemia; Translations: [Hypertriglyceridemia] Onset: 6 02-16-2020 Chronic Esophageal disorders (20 sources) Gastroesophageal reflux disease; Translations: [Gastro-esophageal reflux disease without esophagitis] Chronic Essential hypertension (20 sources) Benign hypertension; Translations: [Essential hypertension] Onset: 6 02-16-2020 Chronic Gastroduodenal ulcer (except hemorrhage) (20 sources) Gastric ulcer; Translations: [Gastric ulcer, unspecified as acute or chronic, without hemorrhage or perforation] 07-06-2022 Chronic Genitourinary symptoms and ill-defined conditions (20 sources) Urge incontinence of urine; Translations: [Mixed urinary incontinence] Onset: 9 05-10-2009 Chronic Immunizations and screening for infectious disease (1 source) Encounter for immunization; Translations: [Encounter for immunization] Onset: 5 Episodic Malaise and fatigue (20 sources) Asthenia; Translations: [Other malaise] Onset: 5 02-11-2023 Episodic Mood disorders (20 sources) Depressive disorder; Translations: [Major depressive disorder, single episode, unspecified] Onset: 6 02-10-2006 Chronic Mycoses (3 sources) Candidiasis of skin; Translations: [Candidiasis] Episodic Nutritional deficiencies (13 sources) Vitamin D deficiency; Translations: [Vitamin D deficiency, unspecified] 01-19-2025 Chronic Nutritional deficiencies (11 sources) Iron deficiency; Translations: [Iron deficiency] Onset: 5 01-19-2025 Episodic Open wounds of extremities (20 sources) Disorder of lower extremity; Translations: [Unspecified open wound, left lower leg, initial encounter] 08-16-2022 Episodic Osteoarthritis (20 sources) Osteoarthritis; Translations: [Unspecified osteoarthritis, unspecified site] Onset: 5 02-11-2023 Chronic Osteoarthritis (1 source) Osteoarthritis of left knee joint; Translations: [Primary osteoarthritis of left knee] Osteoporosis (20 sources) Senile osteoporosis; Translations: [Age-related osteoporosis without current pathological fracture] Onset: 0 05-24-2020 Chronic Other and ill-defined heart disease (20 sources) Left ventricular hypertrophy; Translations: [Cardiomegaly] 06-05-2022 Chronic Other connective tissue disease (15 sources) Trochanteric bursitis, left hip; Translations: [Trochanteric bursitis of left hip] Onset: 9 Episodic Other connective tissue disease (2 sources) Trochanteric bursitis of left hip; Translations: [Trochanteric bursitis of left hip] Other diseases of bladder and urethra (1 source) Bladder irritability; Translations: [Other specified disorders of bladder] Onset: 9 05-10-2009 Chronic Other diseases of veins and lymphatics (20 sources) Lymphedema; Translations: [Lymphedema, not elsewhere classified] 04-22-2021 Chronic Other diseases of veins and lymphatics (20 sources) Lymphedema, not elsewhere classified; Translations: [Other lymphedema] Onset: 5 Chronic Other diseases of veins and lymphatics (20 sources) Peripheral venous insufficiency; Translations: [Venous insufficiency (chronic) (peripheral)] 08-28-2024 Episodic Comment on above: s/p R GSV ablation; no superficial venous reflux identified in the LLE Other diseases of veins and lymphatics (20 sources) Vascular insufficiency; Translations: [Venous insufficiency (chronic) (peripheral)] 05-08-2022 Episodic Other diseases of veins and lymphatics (20 sources) Venous insufficiency (chronic) (peripheral); Translations: [Venous (peripheral) insufficiency, unspecified] Onset: 5 Episodic Other gastrointestinal disorders (1 source) Chronic idiopathic constipation; Translations: [Chronic idiopathic constipation] Episodic Other gastrointestinal disorders (20 sources) Dysphagia; Translations: [Dysphagia, unspecified] 05-08-2022 Episodic Other gastrointestinal disorders (8 sources) Dysphagia, unspecified; Translations: [Dysphagia, unspecified] Episodic Other lower respiratory disease (5 sources) Dyspnea; Translations: [Shortness of breath] Episodic Other lower respiratory disease (20 sources) Hypoxia; Translations: [Hypoxemia] 02-13-2021 Episodic Other lower respiratory disease (4 sources) Shortness of breath; Translations: [Shortness of breath] Episodic Other lower respiratory disease (20 sources) Dyspnea on exertion; Translations: [Other forms of dyspnea] 08-04-2022 Episodic Other nervous system disorders (20 sources) Neuropathy; Translations: [Polyneuropathy, unspecified] Onset: 0 05-25-2020 Chronic Other nervous system disorders (14 sources) Bilateral carpal tunnel syndrome; Translations: [Carpal tunnel syndrome, bilateral upper limbs] Onset: 8 01-10-2018 Chronic Other nervous system disorders (18 sources) Carpal tunnel syndrome, bilateral upper limbs; Translations: [Bilateral carpal tunnel syndrome] Onset: 8 01-10-2018 Other non-traumatic joint disorders (14 sources) Pain in left hip; Translations: [Pain of left hip joint] Onset: 9 Episodic Other non-traumatic joint disorders (2 sources) Hip pain; Translations: [Hip Pain] Onset: 9 Episodic Other non-traumatic joint disorders (20 sources) Pain in right knee; Translations: [Pain in joint, lower leg] Onset: 9 06-07-2019 Episodic Other non-traumatic joint disorders (5 sources) Pain in left knee; Translations: [Pain in joint, lower leg] 02-11-2023 Episodic Other non-traumatic joint disorders (2 sources) Pain of left hip joint; Translations: [Pain of left hip joint] Other nutritional; endocrine; and metabolic disorders (20 sources) Morbid (severe) obesity due to excess calories; Translations: [Severe obesity] Onset: 0 05-25-2020 Chronic Other nutritional; endocrine; and metabolic disorders (12 sources) Morbid obesity; Translations: [Morbid (severe) obesity due to excess calories] Onset: 9 02-16-2020 Chronic Other nutritional; endocrine; and metabolic disorders (1 source) Metabolic syndrome X; Translations: [Metabolic syndrome] Onset: 6 10-20-2005 Chronic Other nutritional; endocrine; and metabolic disorders (20 sources) Body mass index 40+ - severely obese; Translations: [Morbid (severe) obesity due to excess calories] 06-05-2022 Chronic Other nutritional; endocrine; and metabolic disorders (2 sources) Body mass index (BMI) 45.0-49.9, adult; Translations: [Body mass index [BMI] 45.0-49.9, adult] Onset: 5 Chronic Other nutritional; endocrine; and metabolic disorders (6 sources) Hyperuricemia; Translations: [Hyperuricemia without signs of inflammatory arthritis and tophaceous disease] 02-08-2025 Episodic Other screening for suspected conditions (not mental disorders or infectious disease) (20 sources) Patient encounter status; Translations: [Encounter for screening for malignant neoplasm of colon] Onset: 1 10-03-2020 Episodic Other upper respiratory infections (18 sources) Chronic sinusitis, unspecified; Translations: [Rhinosinusitis] 12-07-2024 Chronic Other upper respiratory infections (20 sources) Sore throat symptom; Translations: [Acute pharyngitis, unspecified] Episodic Peripheral and visceral atherosclerosis (20 sources) Peripheral vascular disease; Translations: [Peripheral vascular disease, unspecified] Chronic Phlebitis; thrombophlebitis and thromboembolism (20 sources) Bilateral deep vein thrombosis of lower extremities; Translations: [Acute embolism and thrombosis of unspecified deep veins of lower extremity, bilateral] Episodic Comment on above: Stopped Eliquis in N ovember 2022.Thrombotic risk profile I was normal on 05/24/2023 so has no hereditary risk factors for clotting.D-dimers was 0.97 on 09/13/2023.Doppler of legs on 09/13/2023 was negative. CTA on 09/24/2023 was negative.Comes for follow up.No evidence of new DVT. Stopped Eliquis in N ovember 2022.Thrombotic risk profile I was normal on 05/24/2023 so has no hereditary risk factors for clotting.D-dimers was 0.97 on 09/13/2023.Doppler of legs on 09/13/2023 was negative. CTA on 09/24/2023 was negative.She elected to hold off anticoagulation.Comes for follow up. Doppler on 07/31/2024 and 11/15/2024 reviewed, no DVT.No evidence of new DVT. Pneumonia (except that caused by tuberculosis or sexually transmitted disease) (20 sources) Severe acute respiratory syndrome; Translations: [SARS-associated coronavirus as the cause of diseases classified elsewhere] Episodic Pulmonary heart disease (20 sources) Pulmonary arterial hypertension; Translations: [Secondary pulmonary arterial hypertension] Onset: Chronic Comment on above: Echocardiogram revie wed, EF 55%, PAP is 48. Residual codes; unclassified (1 source) Sleep apnea; Translations: [Sleep apnea, unspecified] Onset: 08-23-2006 Chronic Residual codes; unclassified (20 sources) Obstructive sleep apnea syndrome; Translations: [Obstructive sleep apnea (adult) (pediatric)] 06-05-2022 Chronic Comment on above: Noncompliant Residual codes; unclassified (18 sources) Obstructive sleep apnea (adult) (pediatric); Translations: [Obstructive sleep apnea (adult)(pediatric)] Onset: Chronic Residual codes; unclassified (1 source) Swelling - edema - symptom; Translations: [Edema, unspecified] Episodic Residual codes; unclassified (20 sources) Bilateral lower limb edema; Translations: [Localized edema] 08-05-2022 Episodic Residual codes; unclassified (20 sources) Sedentary lifestyle; Translations: [Lack of physical exercise] 06-05-2022 Episodic Residual codes; unclassified (20 sources) Localized edema; Translations: [Edema] Onset: 5 Episodic Residual codes; unclassified (20 sources) Insomnia; Translations: [Insomnia, unspecified] 11-06-2024 Episodic Residual codes; unclassified (1 source) At high risk for fall; Translations: [At high risk for falls] Respiratory failure; insufficiency; arrest (adult) (20 sources) Chronic hypoxemic respiratory failure; Translations: [Chronic respiratory failure with hypoxia] Onset: 5 Chronic Respiratory failure; insufficiency; arrest (adult) (20 sources) Acute respiratory failure; Translations: [Acute respiratory failure with hypoxia] 02-13-2021 Episodic Skin and subcutaneous tissue infections (20 sources) Cellulitis and abscess of lower limb; Translations: [Cellulitis of lower limb] Onset: 9 Resolved: 9 06-07-2019 Episodic Skin and subcutaneous tissue infections (1 source) Cellulitis of right lower limb; Translations: [Cellulitis of right lower extremity] Spondylosis; intervertebral disc disorders; other back problems (10 sources) Degeneration of lumbosacral intervertebral disc; Translations: [Spondylosis without myelopathy or radiculopathy, lumbar region] Chronic Thyroid disorders (20 sources) Hypothyroidism; Translations: [Hypothyroidism, unspecified] Onset: 6 10-01-2005 Chronic Unclassified (2 sources) PT Eval; Translations: [PT Eval] Onset: 9 Unclassified (2 sources) PT Treatment; Translations: [PT Treatment] Onset: 9 Unclassified (18 sources) Chronic pain of right upper limb; Translations: [Chronic right shoulder pain] Onset: 9 06-07-2019 Unclassified (20 sources) Patient encounter status; Translations: [Well adult health check] Onset: 0 02-16-2020 Unclassified (7 sources) Rhinosinusitis Unclassified (1 source) Rhinosinusitis Varicose veins of lower extremity (20 sources) Varicose veins of left lower extremity with ulcer of ankle; Translations: [Venous stasis 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] Onset: 5 03-24-2024 Episodic Viral infection (20 sources) COVID-19; Translations: [Pneumonia due to COVID-19 virus] Onset: 1 02-13-2021 Episodic Past or Other Problems Problem Classification Problem Date Documented Da te Episodic/Chronic Diabetes mellitus without complication (20 sources) Hyperglycemia; Translations: [Impaired fasting glycemia] Onset: 10-20-2005 05-24-2020 Episodic Fluid and electrolyte disorders (20 sources) Hypokalemia; Translations: [Hypokalemia] Onset: 06-06-2019 06-06-2019 Episodic Gastritis and duodenitis (2 sources) Acute gastritis; Translations: [Acute gastritis without bleeding] Onset: 11-23-2005 11-23-2005 Episodic Nonspecific chest pain (1 source) Chest pain, unspecified; Translations: [Chest pain, unspecified] Onset: 09-07-2024 Episodic Other aftercare (1 source) Encounter for adjustment and management of vascular access device; Translations: [Encounter for adjustment and management of vascular access device] Onset: 11-20-2024 Episodic Other aftercare (1 source) Encounter for surgical aftercare following surgery on the circulatory system; Translations: [Encounter for surgical aftercare following surgery on the circulatory system] Onset: 08-16-2024 Episodic Other diseases of veins and lymphatics (10 sources) Stasis dermatitis; Translations: [Venous insufficiency (chronic) (peripheral)] Onset: 01-10-2021 01-10-2021 Episodic Other gastrointestinal disorders (19 sources) Constipation; Translations: [Constipation, unspecified] Onset: 09-09-2020 09-09-2020 Episodic Other lower respiratory disease (8 sources) Other forms of dyspnea; Translations: [Other respiratory abnormalities] Onset: 09-27-2024 08-04-2022 Episodic Other non-traumatic joint disorders (20 sources) Knee pain; Translations: [Pain in right knee] Onset: 06-07-2019 06-07-2019 Episodic Other non-traumatic joint disorders (14 sources) Chronic pain of right upper limb; Translations: [Pain in right shoulder] Onset: 06-06-2019 06-07-2019 Episodic Pleurisy; pneumothorax; pulmonary collapse (20 sources) Thickening of pleura; Translations: [Pleural plaque without asbestos] Onset: 06-07-2019 06-07-2019 Episodic Residual codes; unclassified (20 sources) Needs influenza immunization; Translations: [Encounter for immunization] Onset: 05-25-2020 05-25-2020 Episodic Spondylosis; intervertebral disc disorders; other back problems (20 sources) Lumbosacral radiculopathy; Translations: [Sacroiliac joint pain] Onset: 11-03-2018 Episodic Results Test Name Value Interpretation Reference Range Facility Pulmonary Visit Reporton Pulmonary Visit Report Normal [facility] History AND Physic zain 04-13-2025 Wound Ctr History & Physical Normal [facility] Absolute lymphocyte countOrd ered By: Jon Doantheo on 03-28-2025 Lymphocytes Auto (Unsp spec) [#/Vol] 1.09 10*3/uL 0.83-4.51 [facility] Absolute neutrophil countOrd ered By: Jon Doantheo on 03-28-2025 Neutrophils (Bld) [#/Vol] 5.6 10*3/uL 2.0-7.7 [facility] Anion gap in Serum or Plasma Ordered By: Jon Rubio on 03-28-2025 Anion gap [Moles/Vol] 9 mmol/L 5- [facility] Automated lymphocyte count a s percentage of total leukocytesOrdered By: Jon Ramiro on 03-28-2025 Lymphocytes/100 WBC Auto (Unsp spec) 14.3 % Low 19- [facility] BUN/creatinine ratioOrdered By: Jon Rubio on 03-28-2025 Urea nitrogen/Creatinine [Mass ratio] 18.5 mg/mg 10- [facility] Basophil percentageOrdered B y: Jon Rubio on 03-28-2025 Basophils/100 WBC (Bld) 0.8 % 0-1 [facility] Bilirubin, totalOrdered By: Jon Ramiro on 03-28-2025 Bilirubin [Mass/Vol] 0.44 mg/dL 0.00-1.30 [facility] CBC W/Diff, Automatedon Absolute Lymph 1.09 X10 3/uL Normal 0.83-4.51 [facility] Comment on above: Performed By: #### L 504.2610, L500.4050, L100.0100 ####[facility] [address] [place], [address] Absolute Neut 5.6 X10 3/uL Normal 2.0-7.7 [facility] Comment on above: Performed By: #### L 504.2610, L500.4050, L100.0100 ####[facility] [address] [place], [address] Basophils/100 WBC (Bld) 0.8 % Normal 0-1 [facility] Comment on above: Performed By: #### L 504.2610, L500.4050, L100.0100 ####[facility] [address] [place], [address] Eosinophils/100 WBC (Bld) 3.9 % Normal 0-5 [facility] Comment on above: Performed By: #### L 504.2610, L500.4050, L100.0100 ####[facility] [address] [place], [address] Erythrocyte distribution width (RBC) [Ratio] 15.4 % High 11.6-14.6 [facility] Comment on above: Performed By: #### L 504.2610, L500.4050, L100.0100 ####[facility] [address] [place], [address] Hematocrit (Bld) [Volume fraction] 42.3 % Normal 37-47 [facility] Comment on above: Performed By: #### L 504.2610, L500.4050, L100.0100 ####[facility] [address] [place], [address] Hemoglobin (Bld) [Mass/Vol] 13.1 g/dL Normal 12.0-15.0 [facility] Comment on above: Performed By: #### L 504.2610, L500.4050, L100.0100 ####[facility] [address] [place], [address] IG% 0.500 Normal 0.0-0.9 [facility] Comment on above: Result Comment: IG% - Immature Granulocytes (promyelocytes, myelocytes andmetamyelocytes) > 1% indicates that a LEFT SHIFT is Present. Performed By: #### L 504.2610, L500.4050, L100.0100 ####[facility] [address] [place], [address] Lymphocytes/100 WBC (Bld) 14.3 % Low 19-41 [facility] Comment on above: Performed By: #### L 504.2610, L500.4050, L100.0100 ####[facility] [address] [place], [address] MCH (RBC) [Entitic mass] 25.1 pg Low 27.0-32.0 [facility] Comment on above: Performed By: #### L 504.2610, L500.4050, L100.0100 ####[facility] [address] [place], [address] MCHC (RBC) [Mass/Vol] 31.0 g/dL Low 32-36 [facility] Comment on above: Performed By: #### L 504.2610, L500.4050, L100.0100 ####[facility] [address] [place], [address] MCV (RBC) [Entitic vol] 81.2 fL Normal 81-99 [facility] Comment on above: Performed By: #### L 504.2610, L500.4050, L100.0100 ####[facility] [address] [place], [address] Monocytes/100 WBC (Bld) 6.7 % Normal 0-10 [facility] Comment on above: Performed By: #### L 504.2610, L500.4050, L100.0100 ####[facility] [address] [place], [address] Neutrophils/100 WBC (Bld) 73.8 % High 47-70 [facility] Comment on above: Performed By: #### L 504.2610, L500.4050, L100.0100 ####[facility] [address] [place], [address] Nucleated RBC (Bld) [#/Vol] 0 10*3/uL Normal 0-5 [facility] Comment on above: Performed By: #### L 504.2610, L500.4050, L100.0100 ####[facility] [address] [place], [address] Platelet mean volume (Bld) [Entitic vol] 9.1 fL Normal 6.2-12.0 [facility] Comment on above: Performed By: #### L 504.2610, L500.4050, L100.0100 ####[facility] [address] [place], [address] Platelets (Bld) [#/Vol] 257 10*3/uL Normal 150-450 [facility] Comment on above: Performed By: #### L 504.2610, L500.4050, L100.0100 ####[facility] [address] [place], [address] RBC (Bld) [#/Vol] 5.21 10*6/uL Normal 4.2-5.4 [facility] Comment on above: Performed By: #### L 504.2610, L500.4050, L100.0100 ####[facility] [address] [place], [address] RDW SD 45.1 fl High 35.1-43.9 [facility] Comment on above: Performed By: #### L 504.2610, L500.4050, L100.0100 ####[facility] [address] [place], [address] WBC (Bld) [#/Vol] 7.6 10*3/uL Normal 4.4-11.0 [facility] Comment on above: Performed By: #### L 504.2610, L500.4050, L100.0100 ####[facility] [address] [place], [address] Carbon dioxide, total [Moles /volume] in Central venous bloodOrdered By: Jon Rubio on 03-28-2025 CO2 [Moles/Vol] 28.3 mmol/L 21.0-32.0 [facility] Chloride assayOrdered By: Darshana Rubio on 03-28-2025 Chloride [Moles/Vol] 101 mmol/L 98-108 [facility] Comprehensive Metabolic Prof ilon 03-28-2025 Albumin [Mass/Vol] 3.9 g/dL Normal 3.4-4.8 [facility] Comment on above: Performed By: #### L 504.2610, L500.4050, L100.0100 ####[facility] [address] [place], [address] Albumin/Globulin [Mass ratio] 1.2 {ratio} Normal 0.9-2.4 [facility] Comment on above: Performed By: #### L 504.2610, L500.4050, L100.0100 ####[facility] [address] [place], [address] ALK PHOS 106 U/L High 35-104 [facility] Comment on above: Performed By: #### L 504.2610, L500.4050, L100.0100 ####[facility] [address] [place], [address] ALT [Catalytic activity/Vol] 7 U/L Normal <=34 [facility] Comment on above: Performed By: #### L 504.2610, L500.4050, L100.0100 ####[facility] [address] [place], [address] AST [Catalytic activity/Vol] 20 U/L Normal <=31 [facility] Comment on above: Result Comment: Hemo lysis present, Results??could be affected.?? Performed By: #### L 504.2610, L500.4050, L100.0100 ####[facility] [address] [place], [address] Bilirubin [Mass/Vol] 0.44 mg/dL Normal 0.00-1.30 [facility] Comment on above: Performed By: #### L 504.2610, L500.4050, L100.0100 ####[facility] [address] [place], [address] BUN/CRE 18.5 RATIO Normal 10-20 [facility] Comment on above: Performed By: #### L 504.2610, L500.4050, L100.0100 ####[facility] [address] [place], [address] Calcium [Mass/Vol] 9.0 mg/dL Normal 7.6-11.0 [facility] Comment on above: Performed By: #### L 504.2610, L500.4050, L100.0100 ####[facility] [address] [place], [address] Chloride [Moles/Vol] 101 mmol/L Normal 98-108 [facility] Comment on above: Performed By: #### L 504.2610, L500.4050, L100.0100 ####[facility] [address] [place], [address] CO2 [Moles/Vol] 28.3 mmol/L Normal 21.0-32.0 [facility] Comment on above: Performed By: #### L 504.2610, L500.4050, L100.0100 ####[facility] [address] [place], [address] Creatinine [Mass/Vol] 0.83 mg/dL Normal 0.70-1.20 [facility] Comment on above: Performed By: #### L 504.2610, L500.4050, L100.0100 ####[facility] [address] [place], [address] ECRCL 83.32 ml/min Normal 50-250 [facility] Comment on above: Performed By: #### L 504.2610, L500.4050, L100.0100 ####[facility] [address] [place], [address] GAP 9 Normal 5-15 [facility] Comment on above: Performed By: #### L 504.2610, L500.4050, L100.0100 ####[facility] [address] [place], [address] GFR/1.73 sq M.predicted among non-blacks MDRD (S/P/Bld) [Vol rate/Area] 74 mL/min/{1.73_m2} Normal >60 [facility] Comment on above: Result Comment: mL/m in/1.73m2 CKD-EPI Creatinine Equation (2020) Performed By: #### L 504.2610, L500.4050, L100.0100 ####[facility] [address] [place], [address] Globulin (S) [Mass/Vol] 3.3 g/dL Normal 2.2-4.2 [facility] Comment on above: Performed By: #### L 504.2610, L500.4050, L100.0100 ####[facility] [address] [place], [address] Glucose [Mass/Vol] 138 mg/dL High 70-99 [facility] Comment on above: Performed By: #### L 504.2610, L500.4050, L100.0100 ####[facility] [address] [place], [address] Potassium [Moles/Vol] 4.2 mmol/L Normal 3.3-5.1 [facility] Comment on above: Result Comment: Hemo lysis present, Results??could be affected.?? Performed By: #### L 504.2610, L500.4050, L100.0100 ####[facility] [address] [place], [address] Sodium [Moles/Vol] 139 mmol/L Normal 133-145 [facility] Comment on above: Performed By: #### L 504.2610, L500.4050, L100.0100 ####[facility] [address] [place], [address] T PROT 7.2 g/dL Normal 5.9-8.4 [facility] Comment on above: Performed By: #### L 504.2610, L500.4050, L100.0100 ####[facility] [address] [place], [address] Urea nitrogen [Mass/Vol] 15 mg/dL Normal 4-19 [facility] Comment on above: Performed By: #### L 504.2610, L500.4050, L100.0100 ####[facility] [address] [place], [address] D-Dimer Quantitative (DVT/PE )on 03-28-2025 D-DIMER QUANT 1.49 FEU/ug/m Invalid Interpretation Code 0.27-0.49 [facility] Comment on above: Order Comment: HAKEEM Bonilla PREVIOUS SPECIMEN REJECTED DUE TOHEMOLYSIS. 03/28/25 1343 Zach Mcclendon. Result Comment: D-Di charan ELEVATED (>0.49): Additional studies and clinicalassessments are indicated to conclude diagnosis of:Deep Vein Thrombosis (DVT) or Pulmonary Embolism (PE)CRITICAL VALUE CALLED TO SHEY CASTRO03/28/25 1410 Haley Pizarro.RESULTS READ BACK BY SAME . Performed By: #### L 300.8000 ####[facility] [address] [place], [address] Eosinophil percentageOrdered By: Jon Rubio on 03-28-2025 Eosinophils/100 WBC (Bld) 3.9 % 0-5 [facility] Erythrocyte distribution wid th ratioOrdered By: Jon Rubio on 03-28-2025 Erythrocyte distribution width (RBC) [Ratio] 15.4 % High 11.6-14.6 [facility] Erythrocyte distribution wid th standard deviationOrdered By: [facility] on [facility]2025 Erythrocyte distribution width (RBC) [Ratio] 45.1 fl High 35.1-43.9 [facility] Glomerular filtration rate ( GFR) estimation/1.73 sq m using serum, plasma, or whole bOrdered By: Jon Olimpia on 03-28-2025 GFR/1.73 sq M.predicted among non-blacks MDRD (S/P/Bld) [Vol rate/Area] 74 mL/min/{1.73_m2} >60 [facility] Comment on above: mL/min/1.73m2 CKD-EP I Creatinine Equation (2020) Hematocrit Auto (Bld) [Volum e fraction]Ordered By: Jon Rubio on 03-28-2025 Hematocrit (Bld) [Volume fraction] 42.3 % 37-47 [facility] Hemoglobin measurementOrdere d By: Jon [facility] on 03-28-2025 Hemoglobin (Bld) [Mass/Vol] 13.1 g/dL 12.0-15.0 [facility] Immature granulocytes/100 WB C Auto (Bld)Ordered By: Jon Rubio on 03-28-2025 Immature granulocytes/100 WBC (Bld) 0.500 % 0.0-0.9 [facility] Comment on above: IG% - Immature Granu locytes (promyelocytes, myelocytes and metamyelocytes) > 1% indicates that a LEFT SHIFT is Present. LDHon 03-28-2025 LDH 227 U/L Normal 84-246 [facility] Comment on above: Order Comment: 1 Result Comment: Hemo lysis present, Results??could be affected.?? Performed By: #### L 504.2610, L500.4050, L100.0100 ####[facility] [address] [place], [place], [id number] Laboratory - Chemistry and C hemistry - challengeOrdered By: Jon Rubio on 03-28-2025 AST [Catalytic activity/Vol] 20 U/L <32 [facility] Comment on above: Hemolysis present, R esults could be affected. Lactate dehydrogenase (LDH) measurementOrdered By: Jon Rubio on 03-28-2025 LDH [Catalytic activity/Vol] 227 U/L 84-246 [facility] Comment on above: Hemolysis present, R esults could be affected. MCV (mean corpuscular volume ) determinationOrdered By: Jon Rubio on 03-28-2025 MCV (RBC) [Entitic vol] 81.2 fL 81-99 [facility] Mean corpuscular hemoglobin (MCH) determinationOrdered By: Jon Rubio on 03-28-2025 MCH (RBC) [Entitic mass] 25.1 pg Low 27.0-32.0 [facility] Mean corpuscular hemoglobin concentration (MCHC) determinationOrdered By: Jon Rubio on 03-28-2025 MCHC (RBC) [Mass/Vol] 31.0 g/dL Low 32-36 [facility] Mean platelet volume determi nationOrdered By: Jon Rubio on 03-28-2025 Platelet mean volume (Bld) [Entitic vol] 9.1 fL 6.2-12.0 [facility] Monocyte percentageOrdered B y: Jon Rubio on 03-28-2025 Monocytes/100 WBC (Bld) 6.7 % 0-10 [facility] Neutrophil percentageOrdered By: Jon Rubio on 03-28-2025 Neutrophils/100 WBC (Bld) 73.8 % High 47-70 [facility] Nucleated red blood cell per centageOrdered By: Jon Rubio on 03-28-2025 Nucleated RBC/100 WBC (Bld) [Ratio] 0 % 0-5 [facility] Oncology Visit Reporton 10-0 Oncology Visit Report Normal [facility] Platelet countOrdered By: Darshana Rubio on 03-28-2025 Platelets (Bld) [#/Vol] 257 10*3/uL 150-450 [facility] [facility] Potassium measurement (mass/ volume)Ordered By: Jon Rubio on 03-28-2025 Potassium (Unsp spec) [Mass/Vol] 4.2 mmol/L 3.3-5.1 [facility] Comment on above: Hemolysis present, R esults could be affected. RBC Auto (Bld) [#/Vol]Ordere d By: Jon Rubio on 03-28-2025 RBC (Bld) [#/Vol] 5.21 10*6/uL 4.2-5.4 [facility] Serum creatinine measurement (mass/volume)Ordered By: oJn Rubio on 03-28-2025 Creatinine [Mass/Vol] 0.83 mg/dL 0.70-1.20 [facility] Serum globulin measurementOr dered By: Jon Rubio on 03-28-2025 Globulin (S) [Mass/Vol] 3.3 g/dL 2.2-4.2 [facility] Serum glucose measurement (m ass/volume)Ordered By: Jon Rubio on 03-28-2025 Glucose [Mass/Vol] 138 mg/dL High 70-99 [facility] Serum or plasma alanine gar otransferase (ALT) measurementOrdered By: Jon Rubio on 03-28-2025 ALT [Catalytic activity/Vol] 7 U/L <35 [facility] Serum or plasma albumin shekhar urement (mass/volume)Ordered By: Jon Rubio on 03-28-2025 Albumin [Mass/Vol] 3.9 g/dL 3.4-4.8 [facility] Serum or plasma albumin/glob ulin mass ratioOrdered By: Jon Rubio on 03-28-2025 Albumin/Globulin [Mass ratio] 1.2 {ratio} 0.9-2.4 [facility] Serum or plasma alkaline savannah sphatase measurementOrdered By: Jon Rubio on 03-28-2025 ALP [Catalytic activity/Vol] 106 U/L High 35-104 [facility] Serum or plasma calcium shekhar urement (mass/volume)Ordered By: Jon Rubio on 03-28-2025 Calcium [Mass/Vol] 9.0 mg/dL 7.6-11.0 [facility] Serum or plasma urea nitroge n measurement (mass/volume)Ordered By: Jon Rubio on 03-28-2025 Urea nitrogen [Mass/Vol] 15 mg/dL 4-19 [facility] Sodium levelOrdered By: Juan Rubio on 03-28-2025 Sodium [Moles/Vol] 139 mmol/L 133-145 [facility] Total proteinOrdered By: Fredy jose alfredo Olimpiatheo on 03-28-2025 Protein [Mass/Vol] 7.2 g/dL 5.9-8.4 [facility] White blood cell (WBC) count Ordered By: Jon Rubio on 03-28-2025 WBC (Bld) [#/Vol] 7.6 10*3/uL 4.4-11.0 [facility] Magnetic resonance imaging r eportOrdered By: Brijesh Downing on 03-07-2025 Study report [facility] Brain W/WO Contraston 2024 Brain W/WO Contrast Normal [facility] Cardiology Visit Reporton Cardiology Visit Report Normal [facility] CT HEAD WO IV CONTRASTon CT HEAD WO IV CONTRAST Interpreted By: Laxmi Colón, STUDY: CT HEAD WO IV CONTRAST; 02/11/2025 11:09 pm INDICATION: Signs/Symptoms:Persistent dizziness. COMPARISON: None. ACCESSION NUMBER(S): [id number] ORDERING CLINICIAN: JOHN JANSEN TECHNIQUE: Axial noncontrast CT images of the head. FINDINGS: BRAIN PARENCHYMA: Horn-white matter interfaces are preserved. No mass effect or midline shift. HEMORRHAGE: No acute intracranial hemorrhage. VENTRICLES and EXTRA-AXIAL SPACES: The ventricles and sulci are within normal limits in size for brain volume. No abnormal extraaxial fluid collection. EXTRACRANIAL SOFT TISSUES: Within normal limits. PARANASAL SINUSES/MASTOIDS: The visualized paranasal sinuses and mastoid air cells are aerated. CALVARIUM: No depressed skull fracture. No destructive osseous lesion. OTHER FINDINGS: None. IMPRESSION: No acute intracranial abnormality. MACRO: None Signed by: Laxmi Gardner 02/11/2025 11:52 PM Dictation workstation: [id number] [facility] CT Head WO contraston 2024 No acute intracrania l abnormality. MACRO: None Signed by: Laxmi Gardner 02/11/2025 11:52 PM Dictation workstation: [id number] [facility] Interpreted By: Laxmi Azar, STUDY: CT HEAD WO IV CONTRAST; 02/11/2025 11:09 pm INDICATION: Signs/Symptoms:Persistent dizziness. COMPARISON: None. ACCESSION NUMBER(S): [id number] ORDERING CLINICIAN: JOHN JANSEN TECHNIQUE: Axial noncontrast CT images of the head. FINDINGS: BRAIN PARENCHYMA: Horn-white matter interfaces are preserved. No mass effect or midline shift. HEMORRHAGE: No acute intracranial hemorrhage. VENTRICLES and EXTRA-AXIAL SPACES: The ventricles and sulci are within normal limits in size for brain volume. No abnormal extraaxial fluid collection. EXTRACRANIAL SOFT TISSUES: Within normal limits. PARANASAL SINUSES/MASTOIDS: The visualized paranasal sinuses and mastoid air cells are aerated. CALVARIUM: No depressed skull fracture. No destructive osseous lesion. OTHER FINDINGS: None. [facility] Laxmi Gardner MD - 02/11/2025 Interpreted By: Laxmi Gardner, STUDY: CT HEAD WO IV CONTRAST; 02/11/2025 11:09 pm INDICATION: Signs/Symptoms:Persistent dizziness. COMPARISON: None. ACCESSION NUMBER(S): [id number] ORDERING CLINICIAN: JOHN JANSEN TECHNIQUE: Axial noncontrast CT images of the head. FINDINGS: BRAIN PARENCHYMA: Horn-white matter interfaces are preserved. No mass effect or midline shift. HEMORRHAGE: No acute intracranial hemorrhage. VENTRICLES and EXTRA-AXIAL SPACES: The ventricles and sulci are within normal limits in size for brain volume. No abnormal extraaxial fluid collection. EXTRACRANIAL SOFT TISSUES: Within normal limits. PARANASAL SINUSES/MASTOIDS: The visualized paranasal sinuses and mastoid air cells are aerated. CALVARIUM: No depressed skull fracture. No destructive osseous lesion. OTHER FINDINGS: None. IMPRESSION: No acute intracranial abnormality. MACRO: None Signed by: Laxmi Gardner 02/11/2025 11:52 PM Dictation workstation: [id number] [facility] Work Phone: Radiology Study observation (narrative) [facility] Work Phone: CT Head WO contrastOrdered B y: Laxmi Gardner on 02-11-2025 [facility] Work Phone: ECG 12-LEADon 02-11-2025 ECG 12-LEAD Ventricular Rate 66 Atrial Rate 66 P-R Interval 196 QRS Duration 92 Q-T Interval 424 QTC Calculation(Bazett) 444 P [place] 63 R [place] 6 T [place] 41 QRS Count 11 Q Onset 209 P Onset 111 P Offset 183 T Offset 421 QTC Fredericia 438 Diagnosis Normal sinus rhythm Low voltage QRS Borderline ECG No previous ECGs available See ED provider note for full interpretation and clinical correlation Confirmed by Mariah Hooper ([id number]) on 02/12/2025 11:32:21 AM Normal [facility] Internal Medicine Office Vis iton 02-07-2025 Internal Medicine Office Visit Normal [facility] Laboratory - Hematology and Cell countsOrdered By: Luis Cortés on 02-07-2025 HbA1c (Bld) [Mass fraction] 6.4 % High 4.2-6.3 [facility] No Panel InformationOrdered By: Luis Cortés on 02-07-2025 6.4 % High 4.2-6.3 [facility] Vitamin B1, Thiamineon 01-25 VIT B1 THIAMINE 102.2 nmol/L Normal 66.5-200.0 [facility] Comment on above: Order Comment: Test( s) 049431-Rje. B1, Whole Bloodwas developed and its performance characteristicsdetermined by [facility]. It has not been cleared or approvedby the Food and Drug Administration. Result Comment: Perf ormed at: [facility] [id number] Director: Vicente William MD, Phone: [phone] Performed By: #### L 100.9950, L100.0100, L3300.8000, L503.0106 ####[facility] [address] [place], [place], [id number] Absolute lymphocyte countOrd ered By: Ni Holt on 01-19-2025 Lymphocytes Auto (Unsp spec) [#/Vol] 1.33 10*3/uL 0.83-4.51 [facility] Absolute neutrophil countOrd ered By: Ni Holt on 01-19-2025 Neutrophils (Bld) [#/Vol] 5.3 10*3/uL 2.0-7.7 [facility] Anion gap in Serum or Plasma Ordered By: Luis Cortés on 01-19-2025 Anion gap [Moles/Vol] 10 mmol/L 5-15 [facility] Automated lymphocyte count a s percentage of total leukocytesOrdered By: Ni Holt on 01-19-2025 Lymphocytes/100 WBC Auto (Unsp spec) 17.9 % Low 19-41 [facility] BUN/creatinine ratioOrdered By: Luis Ramseydwightjennifer on 01-19-2025 Urea nitrogen/Creatinine [Mass ratio] 17.4 mg/mg - [facility] Basic Metabolic Profile (BMP )on 01-19-2025 BUN/CRE 17.4 RATIO Normal - [facility] Comment on above: Performed By: #### L 500.2500 ####[facility] [address] [place], [address] Calcium [Mass/Vol] 8.9 mg/dL Normal 7.6-11.0 [facility] Comment on above: Performed By: #### L 500.2500 ####[facility] [address] [place], [address] Chloride [Moles/Vol] 104 mmol/L Normal 98-108 [facility] Comment on above: Performed By: #### L 500.2500 ####[facility] [address] [place], [address] CO2 [Moles/Vol] 27.1 mmol/L Normal 21.0-32.0 [facility] Comment on above: Performed By: #### L 500.2500 ####[facility] [address] [place], [address] Creatinine [Mass/Vol] 0.93 mg/dL Normal 0.70-1.20 [facility] Comment on above: Performed By: #### L 500.2500 ####[facility] [address] [place], [address] GAP 10 Normal 5-15 [facility] Comment on above: Performed By: #### L 500.2500 ####[facility] [address] [place], [address] GFR/1.73 sq M.predicted among non-blacks MDRD (S/P/Bld) [Vol rate/Area] 64 mL/min/{1.73_m2} Normal >60 [facility] Comment on above: Result Comment: mL/m in/1.73m2 CKD-EPI Creatinine Equation (2020) Performed By: #### L 500.2500 ####[facility] [address] [place], [address] Glucose [Mass/Vol] 133 mg/dL High 70-99 [facility] Comment on above: Performed By: #### L 500.2500 ####[facility] [address] [place], [address] Potassium [Moles/Vol] 4.2 mmol/L Normal 3.3-5.1 [facility] Comment on above: Performed By: #### L 500.2500 ####[facility] [address] [place], [address] Sodium [Moles/Vol] 141 mmol/L Normal 133-145 [facility] Comment on above: Performed By: #### L 500.2500 ####[facility] [address] [place], [address] Urea nitrogen [Mass/Vol] 16 mg/dL Normal 4-19 [facility] Comment on above: Performed By: #### L 500.2500 ####[facility] [address] [place], [address] Basophil percentageOrdered B y: Ni Holt on 01-19-2025 Basophils/100 WBC (Bld) 0.7 % 0-1 [facility] CBC W/Diff, Automatedon Absolute Lymph 1.33 X10 3/uL Normal 0.83-4.51 [facility] Comment on above: Performed By: #### L 100.9950, L100.0100, L3300.8000, L503.0106 ####[facility] [address] [place], [address] Absolute Neut 5.3 X10 3/uL Normal 2.0-7.7 [facility] Comment on above: Performed By: #### L 100.9950, L100.0100, L3300.8000, L503.0106 ####[facility] [address] [place], [address] Basophils/100 WBC (Bld) 0.7 % Normal 0-1 [facility] Comment on above: Performed By: #### L 100.9950, L100.0100, L3300.8000, L503.0106 ####[facility] [address] [place], [address] Eosinophils/100 WBC (Bld) 2.4 % Normal 0-5 [facility] Comment on above: Performed By: #### L 100.9950, L100.0100, L3300.8000, L503.0106 ####[facility] [address] [place], [address] Erythrocyte distribution width (RBC) [Ratio] 14.8 % High 11.6-14.6 [facility] Comment on above: Performed By: #### L 100.9950, L100.0100, L3300.8000, L503.0106 ####[facility] [address] [place], [address] Hematocrit (Bld) [Volume fraction] 40.3 % Normal 37-47 [facility] Comment on above: Performed By: #### L 100.9950, L100.0100, L3300.8000, L503.0106 ####[facility] [address] [place], [address] Hemoglobin (Bld) [Mass/Vol] 12.7 g/dL Normal 12.0-15.0 [facility] Comment on above: Performed By: #### L 100.9950, L100.0100, L3300.8000, L503.0106 ####[facility] [address] [place], [address] IG% 0.800 Normal 0.0-0.9 [facility] Comment on above: Result Comment: IG% - Immature Granulocytes (promyelocytes, myelocytes andmetamyelocytes) > 1% indicates that a LEFT SHIFT is Present. Performed By: #### L 100.9950, L100.0100, L3300.8000, L503.0106 ####[facility] [address] [place], [address] Lymphocytes/100 WBC (Bld) 17.9 % Low 19-41 [facility] Comment on above: Performed By: #### L 100.9950, L100.0100, L3300.8000, L503.0106 ####[facility] [address] [place], [address] MCH (RBC) [Entitic mass] 25.7 pg Low 27.0-32.0 [facility] Comment on above: Performed By: #### L 100.9950, L100.0100, L3300.8000, L503.0106 ####[facility] [address] [place], [address] MCHC (RBC) [Mass/Vol] 31.5 g/dL Low 32-36 [facility] Comment on above: Performed By: #### L 100.9950, L100.0100, L3300.8000, L503.0106 ####[facility] [address] [place], [address] MCV (RBC) [Entitic vol] 81.6 fL Normal 81-99 [facility] Comment on above: Performed By: #### L 100.9950, L100.0100, L3300.8000, L503.0106 ####[facility] [address] [place], [address] Monocytes/100 WBC (Bld) 7.4 % Normal 0-10 [facility] Comment on above: Performed By: #### L 100.9950, L100.0100, L3300.8000, L503.0106 ####[facility] [address] [place], [address] Neutrophils/100 WBC (Bld) 70.8 % High 47-70 [facility] Comment on above: Performed By: #### L 100.9950, L100.0100, L3300.8000, L503.0106 ####[facility] [address] [place], [address] Nucleated RBC (Bld) [#/Vol] 0 10*3/uL Normal 0-5 [facility] Comment on above: Performed By: #### L 100.9950, L100.0100, L3300.8000, L503.0106 ####[facility] [address] [place], [address] Platelet mean volume (Bld) [Entitic vol] 10.2 fL Normal 6.2-12.0 [facility] Comment on above: Performed By: #### L 100.9950, L100.0100, L3300.8000, L503.0106 ####[facility] [address] [place], [address] Platelets (Bld) [#/Vol] 255 10*3/uL Normal 150-450 [facility] Comment on above: Performed By: #### L 100.9950, L100.0100, L3300.8000, L503.0106 ####[facility] [address] [place], [address] RBC (Bld) [#/Vol] 4.94 10*6/uL Normal 4.2-5.4 [facility] Comment on above: Performed By: #### L 100.9950, L100.0100, L3300.8000, L503.0106 ####[facility] [address] [place], [address] RDW SD 43.8 fl Normal 35.1-43.9 [facility] Comment on above: Performed By: #### L 100.9950, L100.0100, L3300.8000, L503.0106 ####[facility] [address] [place], [address] WBC (Bld) [#/Vol] 7.4 10*3/uL Normal 4.4-11.0 [facility] Comment on above: Performed By: #### L 100.9950, L100.0100, L3300.8000, L503.0106 ####[facility] [address] [place], [address] Carbon dioxide, total [Moles /volume] in Central venous bloodOrdered By: Luis Cortés on 01-19-2025 CO2 [Moles/Vol] 27.1 mmol/L 21.0-32.0 [facility] Chloride assayOrdered By: Mignon Cortés on 01-19-2025 Chloride [Moles/Vol] 104 mmol/L 98-108 [facility] Eosinophil percentageOrdered By: Ni Holt on 01-19-2025 Eosinophils/100 WBC (Bld) 2.4 % 0-5 [facility] Erythrocyte distribution wid th ratioOrdered By: Ni Holt on 01-19-2025 Erythrocyte distribution width (RBC) [Ratio] 14.8 % High 11.6-14.6 [facility] Erythrocyte distribution wid th standard deviationOrdered By: Ni Holt on 01-19-2025 Erythrocyte distribution width (RBC) [Ratio] 43.8 fl 35.1-43.9 [facility] Glomerular filtration rate ( GFR) estimation/1.73 sq m using serum, plasma, or whole bOrdered By: Luis Cortés on 01-19-2025 GFR/1.73 sq M.predicted among non-blacks MDRD (S/P/Bld) [Vol rate/Area] 64 mL/min/{1.73_m2} >60 [facility] Comment on above: mL/min/1.73m2 CKD-EP I Creatinine Equation (2020) Hematocrit Auto (Bld) [Volum e fraction]Ordered By: Ni Holt on 01-19-2025 Hematocrit (Bld) [Volume fraction] 40.3 % 37-47 [facility] Hemoglobin measurementOrdere d By: Ni Holt on 01-19-2025 Hemoglobin (Bld) [Mass/Vol] 12.7 g/dL 12.0-15.0 [facility] Immature granulocytes/100 WB C Auto (Bld)Ordered By: Ni Holt on 01-19-2025 Immature granulocytes/100 WBC (Bld) 0.800 % 0.0-0.9 [facility] Comment on above: IG% - Immature Granu locytes (promyelocytes, myelocytes and metamyelocytes) > 1% indicates that a LEFT SHIFT is Present. Internal Medicine Office Vis iton 01-19-2025 Internal Medicine Office Visit Normal [facility] MCV (mean corpuscular volume ) determinationOrdered By: Ni Holt on 01-19-2025 MCV (RBC) [Entitic vol] 81.6 fL 81-99 [facility] Mean corpuscular hemoglobin (MCH) determinationOrdered By: Ni Holt on 01-19-2025 MCH (RBC) [Entitic mass] 25.7 pg Low 27.0-32.0 [facility] Mean corpuscular hemoglobin concentration (MCHC) determinationOrdered By: Ni Holt on 01-19-2025 MCHC (RBC) [Mass/Vol] 31.5 g/dL Low 32-36 [facility] Mean platelet volume determi nationOrdered By: Ni Holt on 01-19-2025 Platelet mean volume (Bld) [Entitic vol] 10.2 fL 6.2-12.0 [facility] Monocyte percentageOrdered B y: Ni Holt on 01-19-2025 Monocytes/100 WBC (Bld) 7.4 % 0-10 [facility] Neutrophil percentageOrdered By: Ni Holt on 01-19-2025 Neutrophils/100 WBC (Bld) 70.8 % High 47-70 [facility] Nucleated red blood cell per centageOrdered By: Ni Holt on 01-19-2025 Nucleated RBC/100 WBC (Bld) [Ratio] 0 % 0-5 [facility] Platelet countOrdered By: Beverley Holt on 01-19-2025 Platelets (Bld) [#/Vol] 255 10*3/uL 150-450 [facility] Potassium measurement (mass/ volume)Ordered By: Luis Cortés on 01-19-2025 Potassium (Unsp spec) [Mass/Vol] 4.2 mmol/L 3.3-5.1 [facility] RBC Auto (Bld) [#/Vol]Ordere d By: Ni Holt on 01-19-2025 RBC (Bld) [#/Vol] 4.94 10*6/uL 4.2-5.4 [facility] Retic Panelon 01-19-2025 IM RET FRACTION 17.60 High 3.00-15.90 [facility] Comment on above: Performed By: #### L 100.9950, L100.0100, L3300.8000, L503.0106 ####[facility] [address] [place], [address] RET-HE 27.2 pg Low 30-35 [facility] Comment on above: Performed By: #### L 100.9950, L100.0100, L3300.8000, L503.0106 ####[facility] [address] [place], [address] Retic Count 1.57 High 0.5-1.5 [facility] Comment on above: Performed By: #### L 100.9950, L100.0100, L3300.8000, L503.0106 ####[facility] [address] [place], [address] Reticulocyte hemoglobin equi valent (RET-He) measurementOrdered By: Ni Holt on 01-19-2025 Hemoglobin (Reticulocytes) [Entitic mass] 27.2 pg Low 30-35 [facility] Reticulocytes Auto (Bld) [#/ Vol]Ordered By: Ni Holt on 01-19-2025 Reticulocytes/100 RBC (Bld) 1.57 % High 0.5-1.5 [facility] Serum creatinine measurement (mass/volume)Ordered By: Luis Cortés on 01-19-2025 Creatinine [Mass/Vol] 0.93 mg/dL 0.70-1.20 [facility] Serum glucose measurement (m ass/volume)Ordered By: Luis Cortés on 01-19-2025 Glucose [Mass/Vol] 133 mg/dL High 70-99 [facility] Serum or plasma calcium shekhar urement (mass/volume)Ordered By: Luis Cortés on 01-19-2025 Calcium [Mass/Vol] 8.9 mg/dL 7.6-11.0 [facility] Serum or plasma thiamine winsome surement (mass/volume)Ordered By: Ni Holt on 01-19-2025 Thiamine [Mass/Vol] 102.2 nmol/L 66.5-200.0 [facility] Comment on above: Performed at: [address] [id number] Director: Vicente William MD, Phone: [phone] Serum or plasma urea nitroge n measurement (mass/volume)Ordered By: Luis Cortés on 01-19-2025 Urea nitrogen [Mass/Vol] 16 mg/dL 4-19 [facility] Sodium levelOrdered By: Micki Cortés on 01-19-2025 Sodium [Moles/Vol] 141 mmol/L 133-145 [facility] Vitamin B12on 01-19-2025 Cobalamin (Vitamin B12) [Mass/Vol] 328 pg/mL Normal 180-914 [facility] Comment on above: Performed By: #### L 100.9950, L100.0100, L3300.8000, L503.0106 ####[facility] [address] [place], [address] Vitamin B12 ser/plasOrdered By: Ni Holt on 01-19-2025 Cobalamin (Vitamin B12) [Mass/Vol] 328 pg/mL 180-914 [facility] White blood cell (WBC) count Ordered By: Ni Holt on 01-19-2025 WBC (Bld) [#/Vol] 7.4 10*3/uL 4.4-11.0 [facility] Absolute lymphocyte countOrd ered By: Sneha Rosa on 01-12-2025 Lymphocytes Auto (Unsp spec) [#/Vol] 1.38 10*3/uL 0.83-4.51 [facility] Absolute neutrophil countOrd ered By: Sneha Rosa on 01-12-2025 Neutrophils (Bld) [#/Vol] 5.5 10*3/uL 2.0-7.7 [facility] Anion gap in Serum or Plasma Ordered By: Sneha Rosa on 01-12-2025 Anion gap [Moles/Vol] 11 mmol/L 5- [facility] Automated lymphocyte count a s percentage of total leukocytesOrdered By: Sneha Rosa on 01-12-2025 Lymphocytes/100 WBC Auto (Unsp spec) 17.7 % Low 19-41 [facility] BUN/creatinine ratioOrdered By: Sneha Rosa on 01-12-2025 Urea nitrogen/Creatinine [Mass ratio] 17.0 mg/mg 10-20 [facility] Basophil percentageOrdered B y: Sneha Rosa on 01-12-2025 Basophils/100 WBC (Bld) 0.9 % 0-1 [facility] Bilirubin, totalOrdered By: Sneha Rosa on 01-12-2025 Bilirubin [Mass/Vol] 0.39 mg/dL 0.00-1.30 [facility] CBC W/Diff, Automatedon 12-20 Absolute Lymph 1.38 X10 3/uL Normal 0.83-4.51 [facility] Comment on above: Performed By: #### L 500.4050, L501.9520, L506.1001, L503.6150, L501.73460, L506.0400, L503.6550, L100.0100, L501.5200 ####[facility] [address] [place], [address] Absolute Neut 5.5 X10 3/uL Normal 2.0-7.7 [facility] Comment on above: Performed By: #### L 500.4050, L501.9520, L506.1001, L503.6150, L501.62060, L506.0400, L503.6550, L100.0100, L501.5200 ####[facility] [address] [place], [address] Basophils/100 WBC (Bld) 0.9 % Normal 0-1 [facility] Comment on above: Performed By: #### L 500.4050, L501.9520, L506.1001, L503.6150, L501.05300, L506.0400, L503.6550, L100.0100, L501.5200 ####[facility] [address] [place], [address] Eosinophils/100 WBC (Bld) 3.2 % Normal 0-5 [facility] Comment on above: Performed By: #### L 500.4050, L501.9520, L506.1001, L503.6150, L501.43325, L506.0400, L503.6550, L100.0100, L501.5200 ####[facility] [address] [place], [address] Erythrocyte distribution width (RBC) [Ratio] 14.9 % High 11.6-14.6 [facility] Comment on above: Performed By: #### L 500.4050, L501.9520, L506.1001, L503.6150, L501.95818, L506.0400, L503.6550, L100.0100, L501.5200 ####[facility] [address] [place], [address] Hematocrit (Bld) [Volume fraction] 42.2 % Normal 37-47 [facility] Comment on above: Performed By: #### L 500.4050, L501.9520, L506.1001, L503.6150, L501.28352, L506.0400, L503.6550, L100.0100, L501.5200 ####[facility] [address] [place], [address] Hemoglobin (Bld) [Mass/Vol] 13.1 g/dL Normal 12.0-15.0 [facility] Comment on above: Performed By: #### L 500.4050, L501.9520, L506.1001, L503.6150, L501.04407, L506.0400, L503.6550, L100.0100, L501.5200 ####[facility] [address] [place], [address] IG% 1.000 High 0.0-0.9 [facility] Comment on above: Result Comment: IG% - Immature Granulocytes (promyelocytes, myelocytes andmetamyelocytes) > 1% indicates that a LEFT SHIFT is Present. Performed By: #### L 500.4050, L501.9520, L506.1001, L503.6150, L501.41958, L506.0400, L503.6550, L100.0100, L501.5200 ####[facility] [address] [place], [address] Lymphocytes/100 WBC (Bld) 17.7 % Low 19-41 [facility] Comment on above: Performed By: #### L 500.4050, L501.9520, L506.1001, L503.6150, L501.03547, L506.0400, L503.6550, L100.0100, L501.5200 ####[facility] [address] [place], [address] MCH (RBC) [Entitic mass] 25.7 pg Low 27.0-32.0 [facility] Comment on above: Performed By: #### L 500.4050, L501.9520, L506.1001, L503.6150, L501.55088, L506.0400, L503.6550, L100.0100, L501.5200 ####[facility] [address] [place], [address] MCHC (RBC) [Mass/Vol] 31.0 g/dL Low 32-36 [facility] Comment on above: Performed By: #### L 500.4050, L501.9520, L506.1001, L503.6150, L501.36033, L506.0400, L503.6550, L100.0100, L501.5200 ####[facility] [address] [place], [address] MCV (RBC) [Entitic vol] 82.7 fL Normal 81-99 [facility] Comment on above: Performed By: #### L 500.4050, L501.9520, L506.1001, L503.6150, L501.57017, L506.0400, L503.6550, L100.0100, L501.5200 ####[facility] [address] [place], [address] Monocytes/100 WBC (Bld) 6.7 % Normal 0-10 [facility] Comment on above: Performed By: #### L 500.4050, L501.9520, L506.1001, L503.6150, L501.60461, L506.0400, L503.6550, L100.0100, L501.5200 ####[facility] [address] [place], [address] Neutrophils/100 WBC (Bld) 70.5 % High 47-70 [facility] Comment on above: Performed By: #### L 500.4050, L501.9520, L506.1001, L503.6150, L501.62645, L506.0400, L503.6550, L100.0100, L501.5200 ####[facility] [address] [place], [address] Nucleated RBC (Bld) [#/Vol] 0 10*3/uL Normal 0-5 [facility] Comment on above: Performed By: #### L 500.4050, L501.9520, L506.1001, L503.6150, L501.71007, L506.0400, L503.6550, L100.0100, L501.5200 ####[facility] [address] [place], [address] Platelet mean volume (Bld) [Entitic vol] 9.7 fL Normal 6.2-12.0 [facility] Comment on above: Performed By: #### L 500.4050, L501.9520, L506.1001, L503.6150, L501.33446, L506.0400, L503.6550, L100.0100, L501.5200 ####[facility] [address] [place], [address] Platelets (Bld) [#/Vol] 268 10*3/uL Normal 150-450 [facility] Comment on above: Performed By: #### L 500.4050, L501.9520, L506.1001, L503.6150, L501.51537, L506.0400, L503.6550, L100.0100, L501.5200 ####[facility] [address] [place], [address] RBC (Bld) [#/Vol] 5.10 10*6/uL Normal 4.2-5.4 [facility] Comment on above: Performed By: #### L 500.4050, L501.9520, L506.1001, L503.6150, L501.04682, L506.0400, L503.6550, L100.0100, L501.5200 ####[facility] [address] [place], [place], [phone] RDW SD 44.9 fl High 35.1-43.9 [facility] Comment on above: Performed By: #### L 500.4050, L501.9520, L506.1001, L503.6150, L501.34402, L506.0400, L503.6550, L100.0100, L501.5200 ####[facility] [address] [place], [place], [phone] WBC (Bld) [#/Vol] 7.8 10*3/uL Normal 4.4-11.0 [facility] Comment on above: Performed By: #### L 500.4050, L501.9520, L506.1001, L503.6150, L501.88128, L506.0400, L503.6550, L100.0100, L501.5200 ####[facility] [address] [place], [place], [phone] Carbon dioxide, total [Moles /volume] in Central venous bloodOrdered By: Sneha Rosa on 01-12-2025 CO2 [Moles/Vol] 25.5 mmol/L 21.0-32.0 [facility] Chloride assayOrdered By: Pepper Rosa on 01-12-2025 Chloride [Moles/Vol] 104 mmol/L 98-108 [facility] Comprehensive Metabolic Prof ilon 01-12-2025 Albumin [Mass/Vol] 3.5 g/dL Normal 3.4-4.8 [facility] Comment on above: Performed By: #### L 500.4050, L501.9520, L506.1001, L503.6150, L501.04999, L506.0400, L503.6550, L100.0100, L501.5200 ####[facility] [address] [place], [address] Albumin/Globulin [Mass ratio] 1.1 {ratio} Normal 0.9-2.4 [facility] Comment on above: Performed By: #### L 500.4050, L501.9520, L506.1001, L503.6150, L501.70138, L506.0400, L503.6550, L100.0100, L501.5200 ####[facility] [address] [place], [address] ALK PHOS 102 U/L Normal 35-104 [facility] Comment on above: Performed By: #### L 500.4050, L501.9520, L506.1001, L503.6150, L501.20548, L506.0400, L503.6550, L100.0100, L501.5200 ####[facility] [address] [place], [address] ALT [Catalytic activity/Vol] 12 U/L Normal <=34 [facility] Comment on above: Performed By: #### L 500.4050, L501.9520, L506.1001, L503.6150, L501.68096, L506.0400, L503.6550, L100.0100, L501.5200 ####[facility] [address] [place], [address] AST [Catalytic activity/Vol] 17 U/L Normal <=31 [facility] Comment on above: Performed By: #### L 500.4050, L501.9520, L506.1001, L503.6150, L501.17827, L506.0400, L503.6550, L100.0100, L501.5200 ####[facility] [address] [place], [address] Bilirubin [Mass/Vol] 0.39 mg/dL Normal 0.00-1.30 [facility] Comment on above: Performed By: #### L 500.4050, L501.9520, L506.1001, L503.6150, L501.25784, L506.0400, L503.6550, L100.0100, L501.5200 ####[facility] [address] [place], [address] BUN/CRE 17.0 RATIO Normal 10-20 [facility] Comment on above: Performed By: #### L 500.4050, L501.9520, L506.1001, L503.6150, L501.84244, L506.0400, L503.6550, L100.0100, L501.5200 ####[facility] [address] [place], [address] Calcium [Mass/Vol] 9.2 mg/dL Normal 7.6-11.0 [facility] Comment on above: Performed By: #### L 500.4050, L501.9520, L506.1001, L503.6150, L501.95024, L506.0400, L503.6550, L100.0100, L501.5200 ####[facility] [address] [place], [address] Chloride [Moles/Vol] 104 mmol/L Normal 98-108 [facility] Comment on above: Performed By: #### L 500.4050, L501.9520, L506.1001, L503.6150, L501.37392, L506.0400, L503.6550, L100.0100, L501.5200 ####[facility] [address] [place], [place], [id number] CO2 [Moles/Vol] 25.5 mmol/L Normal 21.0-32.0 [facility] Comment on above: Performed By: #### L 500.4050, L501.9520, L506.1001, L503.6150, L501.80044, L506.0400, L503.6550, L100.0100, L501.5200 ####[facility] [address] [place], [address] Creatinine [Mass/Vol] 0.88 mg/dL Normal 0.70-1.20 [facility] Comment on above: Performed By: #### L 500.4050, L501.9520, L506.1001, L503.6150, L501.94427, L506.0400, L503.6550, L100.0100, L501.5200 ####[facility] [address] [facility] [place], [place], [id number] GAP 11 Normal 5-15 [facility] Comment on above: Performed By: #### L 500.4050, L501.9520, L506.1001, L503.6150, L501.05144, L506.0400, L503.6550, L100.0100, L501.5200 ####[facility] [address] [facility] [place], [place], [id number] GFR/1.73 sq M.predicted among non-blacks MDRD (S/P/Bld) [Vol rate/Area] 69 mL/min/{1.73_m2} Normal >60 [facility] Comment on above: Result Comment: mL/m in/1.73m2 CKD-EPI Creatinine Equation (2020) Performed By: #### L 500.4050, L501.9520, L506.1001, L503.6150, L501.10743, L506.0400, L503.6550, L100.0100, L501.5200 ####[facility] [address] [place], [address] Globulin (S) [Mass/Vol] 3.2 g/dL Normal 2.2-4.2 [facility] Comment on above: Performed By: #### L 500.4050, L501.9520, L506.1001, L503.6150, L501.63164, L506.0400, L503.6550, L100.0100, L501.5200 ####[facility] [address] [place], [address] Glucose [Mass/Vol] 134 mg/dL High 70-99 [facility] Comment on above: Performed By: #### L 500.4050, L501.9520, L506.1001, L503.6150, L501.66834, L506.0400, L503.6550, L100.0100, L501.5200 ####[facility] [address] [place], [address] Potassium [Moles/Vol] 4.1 mmol/L Normal 3.3-5.1 [facility] Comment on above: Performed By: #### L 500.4050, L501.9520, L506.1001, L503.6150, L501.93282, L506.0400, L503.6550, L100.0100, L501.5200 ####[facility] [address] [place], [address] Sodium [Moles/Vol] 140 mmol/L Normal 133-145 [facility] Comment on above: Performed By: #### L 500.4050, L501.9520, L506.1001, L503.6150, L501.44212, L506.0400, L503.6550, L100.0100, L501.5200 ####[facility] [address] [place], [place], [id number] T PROT 6.8 g/dL Normal 5.9-8.4 [facility] Comment on above: Performed By: #### L 500.4050, L501.9520, L506.1001, L503.6150, L501.34565, L506.0400, L503.6550, L100.0100, L501.5200 ####[facility] [address] [place], [address] Urea nitrogen [Mass/Vol] 15 mg/dL Normal 4-19 [facility] Comment on above: Performed By: #### L 500.4050, L501.9520, L506.1001, L503.6150, L501.92096, L506.0400, L503.6550, L100.0100, L501.5200 ####[facility] [address] [place], [address] Eosinophil percentageOrdered By: Sneha Rosa on 01-12-2025 Eosinophils/100 WBC (Bld) 3.2 % 0-5 [facility] Erythrocyte distribution wid th ratioOrdered By: Sneha Rosa on 01-12-2025 Erythrocyte distribution width (RBC) [Ratio] 14.9 % High 11.6-14.6 [facility] Erythrocyte distribution wid th standard deviationOrdered By: Sneha Rosa on 01-12-2025 Erythrocyte distribution width (RBC) [Ratio] 44.9 fl High 35.1-43.9 [facility] Ferritinon 01-12-2025 Ferritin [Mass/Vol] 34 ng/mL Normal 22-378 [facility] Comment on above: Performed By: #### L 500.4050, L501.9520, L506.1001, L503.6150, L501.73510, L506.0400, L503.6550, L100.0100, L501.5200 ####[facility] [address] [place], [address] Free T3on 01-12-2025 Free T3 [Mass/Vol] 2.4 pg/mL Normal 2.18-3.98 [facility] Comment on above: Performed By: #### L 500.4050, L501.9520, L506.1001, L503.6150, L501.21327, L506.0400, L503.6550, L100.0100, L501.5200 ####[facility] [address] [place], [address] Free W4Tuvuiiu By: Sneha ramsey on 01-12-2025 Free T3 [Mass/Vol] 2.4 pg/mL 2.18-3.98 [facility] Glomerular filtration rate ( GFR) estimation/1.73 sq m using serum, plasma, or whole bOrdered By: Sneha Rosa on 01-12-2025 GFR/1.73 sq M.predicted among non-blacks MDRD (S/P/Bld) [Vol rate/Area] 69 mL/min/{1.73_m2} >60 [facility] Comment on above: mL/min/1.73m2 CKD-EP I Creatinine Equation (2020) Hematocrit Auto (Bld) [Volum e fraction]Ordered By: Sneha Rosa on 01-12-2025 Hematocrit (Bld) [Volume fraction] 42.2 % 37-47 [facility] Hemoglobin measurementOrdere d By: Sneha Rosa on 01-12-2025 Hemoglobin (Bld) [Mass/Vol] 13.1 g/dL 12.0-15.0 [facility] Immature granulocytes/100 WB C Auto (Bld)Ordered By: Sneha Rosa on 01-12-2025 Immature granulocytes/100 WBC (Bld) 1.000 % High 0.0-0.9 [facility] Comment on above: IG% - Immature Granu locytes (promyelocytes, myelocytes and metamyelocytes) > 1% indicates that a LEFT SHIFT is Present. Ironon 01-12-2025 Iron [Mass/Vol] 35 ug/dL Low 50-170 [facility] Comment on above: Performed By: #### L 500.4050, L501.9520, L506.1001, L503.6150, L501.95560, L506.0400, L503.6550, L100.0100, L501.5200 ####[facility] [address] [place], [place], [id number] Iron measurement (mass/mass) Ordered By: Sneha Rosa on 01-12-2025 Iron (Unsp spec) [Mass/Mass] 35 ug/dL Low 50-170 [facility] Laboratory - Chemistry and C hemistry - challengeOrdered By: Sneha Rosa on 01-12-2025 AST [Catalytic activity/Vol] 17 U/L <32 [facility] MCV (mean corpuscular volume ) determinationOrdered By: Sneha Rosa on 01-12-2025 MCV (RBC) [Entitic vol] 82.7 fL 81-99 [facility] Magnesiumon 01-12-2025 Magnesium [Mass/Vol] 1.9 mg/dL Normal 1.5-2.2 [facility] Comment on above: Performed By: #### L 500.4050, L501.9520, L506.1001, L503.6150, L501.06662, L506.0400, L503.6550, L100.0100, L501.5200 ####[facility] [address] [place], [place], [id number] Magnesium measurement (mass/ volume)Ordered By: Sneha Rosa on 01-12-2025 Magnesium (Unsp spec) [Mass/Vol] 1.9 mg/dL 1.5-2.2 [facility] Mean corpuscular hemoglobin (MCH) determinationOrdered By: Sneha Rosa on 01-12-2025 MCH (RBC) [Entitic mass] 25.7 pg Low 27.0-32.0 [facility] Mean corpuscular hemoglobin concentration (MCHC) determinationOrdered By: Sneha Rosa on 01-12-2025 MCHC (RBC) [Mass/Vol] 31.0 g/dL Low 32-36 [facility] Mean platelet volume determi nationOrdered By: Sneha Rosa on 01-12-2025 Platelet mean volume (Bld) [Entitic vol] 9.7 fL 6.2-12.0 [facility] Monocyte percentageOrdered B y: Sneha Rosa on 01-12-2025 Monocytes/100 WBC (Bld) 6.7 % 0-10 [facility] Neutrophil percentageOrdered By: Sneha Rosa on 01-12-2025 Neutrophils/100 WBC (Bld) 70.5 % High 47-70 [facility] No Panel InformationOrdered By: Sneha Rosa on 01-12-2025 17 U/L <32 [facility] Nucleated red blood cell per centageOrdered By: Sneha Rosa on 01-12-2025 Nucleated RBC/100 WBC (Bld) [Ratio] 0 % 0-5 [facility] Platelet countOrdered By: Pepper Rosa on 01-12-2025 Platelets (Bld) [#/Vol] 268 10*3/uL 150-450 [facility] Potassium measurement (mass/ volume)Ordered By: Sneha Rosa on 01-12-2025 Potassium (Unsp spec) [Mass/Vol] 4.1 mmol/L 3.3-5.1 [facility] RBC Auto (Bld) [#/Vol]Ordere d By: Sneha Rosa on 01-12-2025 RBC (Bld) [#/Vol] 5.10 10*6/uL 4.2-5.4 [facility] Serum creatinine measurement (mass/volume)Ordered By: Sneha Rosa on 01-12-2025 Creatinine [Mass/Vol] 0.88 mg/dL 0.70-1.20 [facility] Serum globulin measurementOr dered By: Sneha Rosa on 01-12-2025 Globulin (S) [Mass/Vol] 3.2 g/dL 2.2-4.2 [facility] Serum glucose measurement (m ass/volume)Ordered By: Sneha Rosa on 01-12-2025 Glucose [Mass/Vol] 134 mg/dL High 70-99 [facility] Serum or plasma alanine gar otransferase (ALT) measurementOrdered By: Sneha Rosa on 01-12-2025 ALT [Catalytic activity/Vol] 12 U/L <35 [facility] Serum or plasma albumin shekhar urement (mass/volume)Ordered By: Sneha Rosa on 01-12-2025 Albumin [Mass/Vol] 3.5 g/dL 3.4-4.8 [facility] Serum or plasma albumin/glob ulin mass ratioOrdered By: Sneha Rosa on 01-12-2025 Albumin/Globulin [Mass ratio] 1.1 {ratio} 0.9-2.4 [facility] Serum or plasma alkaline savannah sphatase measurementOrdered By: Sneha Rosa on 01-12-2025 ALP [Catalytic activity/Vol] 102 U/L 35-104 [facility] Serum or plasma calcium shekhar urement (mass/volume)Ordered By: Sneha Rosa on 01-12-2025 Calcium [Mass/Vol] 9.2 mg/dL 7.6-11.0 [facility] Serum or plasma ferritin winsome surement (mass/volume)Ordered By: Sneha Rosa on 01-12-2025 Ferritin [Mass/Vol] 34 ng/mL 22-378 [facility] Serum or plasma urea nitroge n measurement (mass/volume)Ordered By: Sneha Rosa on 01-12-2025 Urea nitrogen [Mass/Vol] 15 mg/dL 4-19 [facility] Sodium levelOrdered By: Sneha Rosa on 01-12-2025 Sodium [Moles/Vol] 140 mmol/L 133-145 [facility] T4 Free Directon 01-12-2025 T4 FREE DIRECT 1.30 ng/dL Normal 0.76-1.46 [facility] Comment on above: Performed By: #### L 500.4050, L501.9520, L506.1001, L503.6150, L501.58326, L506.0400, L503.6550, L100.0100, L501.5200 ####[facility] [address] [place], [place], [id number] T4 freeOrdered By: Sneha Aguilar s on 01-12-2025 Free T4 [Mass/Vol] 1.30 ng/dL 0.76-1.46 [facility] TSH DL <= 0.005 mIU/L QnOrde red By: Sneha Rosa on 01-12-2025 TSH Qn 2.450 uIU/mL 0.300-4.200 [facility] Thyroid Stim Hormone (TSH)on 01-12-2025 TSH 2.450 uIU/mL Normal 0.300-4.200 [facility] Comment on above: Performed By: #### L 500.4050, L501.9520, L506.1001, L503.6150, L501.91393, L506.0400, L503.6550, L100.0100, L501.5200 ####[facility] [address] [place], [place], [id number] Total proteinOrdered By: Ariella Rosa on 01-12-2025 Protein [Mass/Vol] 6.8 g/dL 5.9-8.4 [facility] Vitamin D,25 Hydroxyon 01-12 Vitamin D 25-OH 13.8 ng/mL Low 30-100 [facility] Comment on above: Result Comment: Kimberly min D StatusDeficiency: <20 ng/mL (50nmol/L)Insufficiency: 20-30 ng/mL (50-75 nmol/L)Sufficiency: 30-100 ng/mL (75-250 nmol/L)Toxicity: >100 ng/mL (>250 nmol/L) Performed By: #### L 500.4050, L501.9520, L506.1001, L503.6150, L501.30404, L506.0400, L503.6550, L100.0100, L501.5200 ####[facility] [address], [address] White blood cell (WBC) count Ordered By: Sneha Rosa on 01-12-2025 WBC (Bld) [#/Vol] 7.8 10*3/uL 4.4-11.0 [facility] Culture, Anaerobic Any Sourc dougie 01-06-2025 CUAN List Antibiotics Las t 48 Hours? NONE List Antibiotics to be Started? NONE Actinotignum schaalii Normal [facility] Comment on above: Performed By: #### M 100.2000, M100.4001, M100.3000 ####[facility] [address] [place], [address] Wound Cultureon 01-03-2025 WC Normal [facility] Comment on above: Performed By: #### M 100.2000, M100.4001, M100.3000 ####[facility] [address] [place], [address] Gram Stainon 12-30-2024 GS List Antibiotics Las t 48 Hours? NONE List Antibiotics to be Started? NONE Gram Stain 3+ Gram positive cocci in chains 2+ Gram negative rods Normal [facility] Comment on above: Performed By: #### M 100.1999, M100.4001, M100.3000 ####[facility] [address] [place], [address] Anaerobic cultureOrdered By: Sneha Rosa on 12-29-2024 Bacteria identified Anaer cx Nom (Unsp spec) Actinotignum schaalii Abnormal [facility] Gram stainOrdered By: Sneha self on 12-29-2024 Microscopic observation Gram stain Nom (Unsp spec) [facility] Routine wound cultureOrdered By: Sneha Rosa on 12-29-2024 Microbial culture, routine Klebsiella pneumoniae sp pneum Abnormal [facility] Internal Medicine Office Vis iton 12-07-2024 Internal Medicine Office Visit Normal [facility] Gentamicin, Randomon 025 GENT.RANDOM 11.0 ug/mL Invalid Interpretation Code [facility] Comment on above: Result Comment: Crit ical Result(s) Called to: Hermelinda MENDIOLA (' office)by:Alia???Results read back by same.Random level based on once daily dose of antibiotic.Please contact Pharmacy Services (#[phone]) for interpretationof results.This result does not represent either a peak or a troughlevel for this drug. Performed By: #### L 501.6710, L100.0100, L501.8650, L501.1400, L500.2500, L101.9900 ####[facility] [address] [place], [place], [id number] 12 Lead EKGon 11-27-2024 12 Lead EKG Normal [facility] Absolute lymphocyte countOrd ered By: Amara Reich on 11-27-2024 Lymphocytes Auto (Unsp spec) [#/Vol] 1.45 10*3/uL 0.83-4.51 [facility] Anion gap in Serum or Plasma Ordered By: Amara Reich on 11-27-2024 Anion gap [Moles/Vol] 10 mmol/L 5-15 [facility] Automated lymphocyte count a s percentage of total leukocytesOrdered By: Amara Reich on 11-27-2024 Lymphocytes/100 WBC Auto (Unsp spec) 21.1 % - [facility] BUN/creatinine ratioOrdered By: Amara Reich on 11-27-2024 Urea nitrogen/Creatinine [Mass ratio] 18.1 mg/mg 10- [facility] Basophil percentageOrdered B y: Amara Reich on 11-27-2024 Basophils/100 WBC (Bld) 0.9 % 0-1 [facility] Bilirubin Test strip Ql (U)O rdered By: Amara Reich on 11-27-2024 Bilirubin Ql (U) Negative Negative [facility] Bilirubin, totalOrdered By: Amara Reich on 11-27-2024 Bilirubin [Mass/Vol] 0.42 mg/dL 0.00-1.30 [facility] CBC W/Diff, Automatedon Absolute Lymph 1.45 X10 3/uL Normal 0.83-4.51 [facility] Comment on above: Performed By: #### L 100.0100, L503.7505, L500.4050 ####[facility] [address] [place], [place], [phone] Absolute Neut 4.6 X10 3/uL Normal 2.0-7.7 [facility] Comment on above: Performed By: #### L 100.0100, L503.7505, L500.4050 ####[facility] [address] [place], [address] Basophils/100 WBC (Bld) 0.9 % Normal 0-1 [facility] Comment on above: Performed By: #### L 100.0100, L503.7505, L500.4050 ####[facility] [address] [place], [address] Eosinophils/100 WBC (Bld) 4.1 % Normal 0-5 [facility] Comment on above: Performed By: #### L 100.0100, L503.7505, L500.4050 ####[facility] [address] [place], [address] Erythrocyte distribution width (RBC) [Ratio] 15.6 % High 11.6-14.6 [facility] Comment on above: Performed By: #### L 100.0100, L503.7505, L500.4050 ####[facility] [address] [place], [address] Hematocrit (Bld) [Volume fraction] 43.4 % Normal 37-47 [facility] Comment on above: Performed By: #### L 100.0100, L503.7505, L500.4050 ####[facility] [address] [place], [address] Hemoglobin (Bld) [Mass/Vol] 13.5 g/dL Normal 12.0-15.0 [facility] Comment on above: Performed By: #### L 100.0100, L503.7505, L500.4050 ####[facility] [address] [place], [address] IG% 0.400 Normal 0.0-0.9 [facility] Comment on above: Result Comment: IG% - Immature Granulocytes (promyelocytes, myelocytes andmetamyelocytes) > 1% indicates that a LEFT SHIFT is Present. Performed By: #### L 100.0100, L503.7505, L500.4050 ####[facility] [address], [address] Lymphocytes/100 WBC (Bld) 21.1 % Normal 19-41 [facility] Comment on above: Performed By: #### L 100.0100, L503.7505, L500.4050 ####[facility] [address], [address] MCH (RBC) [Entitic mass] 25.5 pg Low 27.0-32.0 [facility] Comment on above: Performed By: #### L 100.0100, L503.7505, L500.4050 ####[facility] [address] [place], [address] MCHC (RBC) [Mass/Vol] 31.1 g/dL Low 32-36 [facility] Comment on above: Performed By: #### L 100.0100, L503.7505, L500.4050 ####[facility] [address] [place], [address] MCV (RBC) [Entitic vol] 82.0 fL Normal 81-99 [facility] Comment on above: Performed By: #### L 100.0100, L503.7505, L500.4050 ####[facility] [address], [address] Monocytes/100 WBC (Bld) 6.8 % Normal 0-10 [facility] Comment on above: Performed By: #### L 100.0100, L503.7505, L500.4050 ####[facility] [address] [place], [address] Neutrophils/100 WBC (Bld) 66.7 % Normal 47-70 [facility] Comment on above: Performed By: #### L 100.0100, L503.7505, L500.4050 ####[facility] [address] [place], [address] Nucleated RBC (Bld) [#/Vol] 0 10*3/uL Normal 0-5 [facility] [facility] Comment on above: Performed By: #### L 100.0100, L503.7505, L500.4050 ####[facility] [address] [place], [address] Platelet mean volume (Bld) [Entitic vol] 9.3 fL Normal 6.2-12.0 [facility] Comment on above: Performed By: #### L 100.0100, L503.7505, L500.4050 ####[facility] [address] [place], [address] Platelets (Bld) [#/Vol] 260 10*3/uL Normal 150-450 [facility] Comment on above: Performed By: #### L 100.0100, L503.7505, L500.4050 ####[facility] [address] [place], [address] RBC (Bld) [#/Vol] 5.29 10*6/uL Normal 4.2-5.4 [facility] Comment on above: Performed By: #### L 100.0100, L503.7505, L500.4050 ####[facility] [address] [place], [address] RDW SD 46.5 fl High 35.1-43.9 [facility] Comment on above: Performed By: #### L 100.0100, L503.7505, L500.4050 ####[facility] [address] [place], [address] WBC (Bld) [#/Vol] 6.9 10*3/uL Normal 4.4-11.0 [facility] Comment on above: Performed By: #### L 100.0100, L503.7505, L500.4050 ####[facility] [address] [place], [address] Carbon dioxide, total [Moles /volume] in Central venous bloodOrdered By: mAara Reich on 11-27-2024 CO2 [Moles/Vol] 27.5 mmol/L 21.0-32.0 [facility] Chest PA and Lateralon 11-27 Chest PA and Lateral Normal [facility] Chloride assayOrdered By: Kishore Reich on 11-27-2024 Chloride [Moles/Vol] 104 mmol/L 98-108 [facility] Comprehensive Metabolic Prof ilon 11-27-2024 Albumin [Mass/Vol] 3.7 g/dL Normal 3.4-4.8 [facility] Comment on above: Performed By: #### L 100.0100, L503.7505, L500.4050 ####[facility] [address] [place], [address] Albumin/Globulin [Mass ratio] 1.1 {ratio} Normal 0.9-2.4 [facility] Comment on above: Performed By: #### L 100.0100, L503.7505, L500.4050 ####[facility] [address] [place], [address] ALK PHOS 94 U/L Normal 35-104 [facility] Comment on above: Performed By: #### L 100.0100, L503.7505, L500.4050 ####[facility] [address] [place], [address] ALT [Catalytic activity/Vol] 8 U/L Normal <=34 [facility] Comment on above: Performed By: #### L 100.0100, L503.7505, L500.4050 ####[facility] [address] [place], [address] AST [Catalytic activity/Vol] 16 U/L Normal <=31 [facility] Comment on above: Performed By: #### L 100.0100, L503.7505, L500.4050 ####[facility] [address] [place], [address] Bilirubin [Mass/Vol] 0.42 mg/dL Normal 0.00-1.30 [facility] Comment on above: Performed By: #### L 100.0100, L503.7505, L500.4050 ####[facility] [address] [place], [address] BUN/CRE 18.1 RATIO Normal 10-20 [facility] Comment on above: Performed By: #### L 100.0100, L503.7505, L500.4050 ####[facility] [address] [place], [address] Calcium [Mass/Vol] 9.3 mg/dL Normal 7.6-11.0 [facility] Comment on above: Performed By: #### L 100.0100, L503.7505, L500.4050 ####[facility] [address] [place], [address] Chloride [Moles/Vol] 104 mmol/L Normal 98-108 [facility] Comment on above: Performed By: #### L 100.0100, L503.7505, L500.4050 ####[facility] [address] [place], [address] CO2 [Moles/Vol] 27.5 mmol/L Normal 21.0-32.0 [facility] Comment on above: Performed By: #### L 100.0100, L503.7505, L500.4050 ####[facility] [address] [place], [address] Creatinine [Mass/Vol] 0.90 mg/dL Normal 0.70-1.20 [facility] Comment on above: Performed By: #### L 100.0100, L503.7505, L500.4050 ####[facility] [address] [place], [address] GAP 10 Normal 5-15 [facility] Comment on above: Performed By: #### L 100.0100, L503.7505, L500.4050 ####[facility] [address] [place], [address] GFR/1.73 sq M.predicted among non-blacks MDRD (S/P/Bld) [Vol rate/Area] 67 mL/min/{1.73_m2} Normal >60 [facility] Comment on above: Result Comment: mL/m in/1.73m2 CKD-EPI Creatinine Equation (2020) Performed By: #### L 100.0100, L503.7505, L500.4050 ####[facility] [address] [place], [address] Globulin (S) [Mass/Vol] 3.2 g/dL Normal 2.2-4.2 [facility] Comment on above: Performed By: #### L 100.0100, L503.7505, L500.4050 ####[facility] [address] [place], [address] Glucose [Mass/Vol] 118 mg/dL High 70-99 [facility] Comment on above: Performed By: #### L 100.0100, L503.7505, L500.4050 ####[facility] [address] [place], [address] Potassium [Moles/Vol] 4.0 mmol/L Normal 3.3-5.1 [facility] Comment on above: Performed By: #### L 100.0100, L503.7505, L500.4050 ####[facility] [address] [place], [address] Sodium [Moles/Vol] 141 mmol/L Normal 133-145 [facility] Comment on above: Performed By: #### L 100.0100, L503.7505, L500.4050 ####[facility] [address] [place], [address] T PROT 6.9 g/dL Normal 5.9-8.4 [facility] Comment on above: Performed By: #### L 100.0100, L503.7505, L500.4050 ####[facility] [address] [place], [address] Urea nitrogen [Mass/Vol] 16 mg/dL Normal 4-19 [facility] Comment on above: Performed By: #### L 100.0100, L503.7505, L500.4050 ####[facility] [address] [place], [address] Emergency Department Summary on 11-27-2024 Emergency Department Summary Normal [facility] Eosinophil percentageOrdered By: Amara Reich on 11-27-2024 Eosinophils/100 WBC (Bld) 4.1 % 0-5 [facility] Erythrocyte distribution wid th ratioOrdered By: Amara Reich on 11-27-2024 Erythrocyte distribution width (RBC) [Ratio] 15.6 % High 11.6-14.6 [facility] Erythrocyte distribution wid th standard deviationOrdered By: Amara Reich on 11-27-2024 Erythrocyte distribution width (RBC) [Ratio] 46.5 fl High 35.1-43.9 [facility] Glomerular filtration rate ( GFR) estimation/1.73 sq m using serum, plasma, or whole bOrdered By: Amara Reich on 11-27-2024 GFR/1.73 sq M.predicted among non-blacks MDRD (S/P/Bld) [Vol rate/Area] 67 mL/min/{1.73_m2} >60 [facility] Hematocrit Auto (Bld) [Volum e fraction]Ordered By: Amara Reich on 11-27-2024 Hematocrit (Bld) [Volume fraction] 43.4 % 37-47 [facility] Hemoglobin measurementOrdere d By: Amara Reich on 11-27-2024 Hemoglobin (Bld) [Mass/Vol] 13.5 g/dL 12.0-15.0 [facility] Immature granulocytes/100 WB C Auto (Bld)Ordered By: Amara Reich on 11-27-2024 Immature granulocytes/100 WBC (Bld) 0.400 % 0.0-0.9 [facility] Ketones Test strip Ql (U)Ord ered By: Amara Reich on 11-27-2024 Ketones Ql (U) Negative Negative [facility] L503.7505on 11-27-2024 Natriuretic peptide B (Bld) [Mass/Vol] 176 pg/mL Normal <=1800 [facility] Comment on above: Result Comment: Hear t Failure Unlikely: < 300 pg/mLHeart Failure Likely< 50 Years: > 450 pg/mL50-75 Years: > 900 pg/mL>75 Years: > 1800 pg/mL Performed By: #### L 100.0100, L503.7505, L500.4050 ####[facility] [address] [place], [address] MCV (mean corpuscular volume ) determinationOrdered By: Amara Reich on 11-27-2024 MCV (RBC) [Entitic vol] 82.0 fL 81-99 [facility] Mean corpuscular hemoglobin (MCH) determinationOrdered By: Amara Reich on 11-27-2024 MCH (RBC) [Entitic mass] 25.5 pg Low 27.0-32.0 [facility] Monocyte percentageOrdered B y: Amara Reich on 11-27-2024 Monocytes/100 WBC (Bld) 6.8 % 0-10 [facility] Mucus LM Ql (Urine sed)Order ed By: Amara Reich on 11-27-2024 Mucus Ql (Urine sed) 0 SEEN /hpf [facility] Natriuretic peptide.B prohor thee N-Terminal [Mass/volume] in Serum or PlasmaOrdered By: Amara Reich on 11-27-2024 Natriuretic peptide.B prohormone N-Terminal [Mass/Vol] 176 pg/mL <1800 [facility] Neutrophil percentageOrdered By: Amara Reich on 11-27-2024 Neutrophils/100 WBC (Bld) 66.7 % 47-70 [facility] Nitrite Test strip Ql (U)Ord ered By: Amara Reich on 11-27-2024 Nitrite Ql (U) Negative Negative [facility] No Panel InformationOrdered By: Amara Reich on 11-27-2024 16 U/L <32 [facility] Platelet countOrdered By: Kishore Reich on 11-27-2024 Platelets (Bld) [#/Vol] 260 10*3/uL 150-450 [facility] Potassium measurement (mass/ volume)Ordered By: Amara Reich on 11-27-2024 Potassium (Unsp spec) [Mass/Vol] 4.0 mmol/L 3.3-5.1 [facility] Protein Test strip Ql (U)Ord ered By: Amara Reich on 11-27-2024 Protein Ql (U) Negative Negative [facility] RBC Auto (Bld) [#/Vol]Ordere d By: Amara Reich on 11-27-2024 RBC (Bld) [#/Vol] 5.29 10*6/uL 4.2-5.4 [facility] Serum creatinine measurement (mass/volume)Ordered By: Amara Reich on 11-27-2024 Creatinine [Mass/Vol] 0.90 mg/dL 0.70-1.20 [facility] Serum globulin measurementOr dered By: Amara Reich on 11-27-2024 Globulin (S) [Mass/Vol] 3.2 g/dL 2.2-4.2 [facility] Serum glucose measurement (m ass/volume)Ordered By: Amara Reich on 11-27-2024 Glucose [Mass/Vol] 118 mg/dL High 70-99 [facility] Serum or plasma alanine gar otransferase (ALT) measurementOrdered By: Amara Reich on 11-27-2024 ALT [Catalytic activity/Vol] 8 U/L <35 [facility] Serum or plasma albumin shekhar urement (mass/volume)Ordered By: Amara Reich on 11-27-2024 Albumin [Mass/Vol] 3.7 g/dL 3.4-4.8 [facility] Serum or plasma albumin/glob ulin mass ratioOrdered By: Amara Reich on 11-27-2024 Albumin/Globulin [Mass ratio] 1.1 {ratio} 0.9-2.4 [facility] Serum or plasma alkaline [place] sphatase measurementOrdered By: Amara Reich on 11-27-2024 ALP [Catalytic activity/Vol] 94 U/L 35-104 [facility] Serum or plasma calcium shekhar urement (mass/volume)Ordered By: Amara Reich on 11-27-2024 Calcium [Mass/Vol] 9.3 mg/dL 7.6-11.0 [facility] Serum or plasma urea nitroge n measurement (mass/volume)Ordered By: Amara Reich on 11-27-2024 Urea nitrogen [Mass/Vol] 16 mg/dL 4-19 [facility] Sodium levelOrdered By: Gaby Reich on 11-27-2024 Sodium [Moles/Vol] 141 mmol/L 133-145 [facility] Squamous epithelial cells de tection in urine sediment by light microscopyOrdered By: Amara Reich on 11-27-2024 Epithelial cells.squamous LM Ql (Urine sed) 0-5 SEEN /hpf - [facility] Total proteinOrdered By: Lorena Reich on 11-27-2024 Protein [Mass/Vol] 6.9 g/dL 5.9-8.4 [facility] Urinalysis, Completeon 11-27 EPI,SQUAMOUS 0-5 SEEN Normal - [facility] Comment on above: Order Comment: CLEAN CATCH Performed By: #### L 400.0001 ####[facility] [address] [place], [place], [id number] RBC 0-5 SEEN Normal 0-5 [facility] Comment on above: Order Comment: CLEAN CATCH Performed By: #### L 400.0001 ####[facility] [address] [place], [place], [id number] WBC 0-5 SEEN Normal 0-5 [facility] Comment on above: Order Comment: CLEAN CATCH Performed By: #### L 400.0001 ####[facility] [address] [place], [address] BACTERIA 0 SEEN Normal None Seen [facility] Comment on above: Order Comment: CLEAN CATCH Performed By: #### L 400.0001 ####[facility] [address] [place], [address] Mucus Ql (Urine sed) 0 SEEN Normal [facility] Comment on above: Order Comment: CLEAN CATCH Performed By: #### L 400.0001 ####[facility] [address] [place], [place], [id number] Urine clarityOrdered By: Lorena Reich on 11-27-2024 Clarity (U) Clear Clear [facility] Urine color determinationOrd ered By: Amara Reich on 11-27-2024 Color (U) Straw Yellow [facility] Urine glucose detectionOrder ed By: Amara Reich on 11-27-2024 Glucose Ql (U) Normal mg/dl Normal [facility] Urine leukocyte esterase det ection by dipstickOrdered By: Amara Reich on 11-27-2024 Leukocyte esterase Test strip Ql (U) 25 /ul High Negative [facility] Urine pHOrdered By: Amara goldstein on 11-27-2024 pH (U) 6.5 [pH] 5.0 - 8.0 [facility] Urine sediment bacteria coun t by microscopy (number/high power field)Ordered By: mAara Reich on 11-27-2024 Bacteria LM.HPF (Urine sed) [#/Area] 0 /[HPF] None Seen [facility] Urine specific gravity measu rementOrdered By: Amara Reich on 11-27-2024 Specific gravity (U) [Rel density] 1.010 1.002-1.030 [facility] Urine urobilinogen measureme ntOrdered By: Amara Reich on 11-27-2024 Urobilinogen Ql (U) Normal mg/dl Normal [facility] White blood cell (WBC) count Ordered By: Amara Reich on 11-27-2024 WBC (Bld) [#/Vol] 6.9 10*3/uL 4.4-11.0 [facility] White blood cell countOrdere d By: Amara Reich on 11-27-2024 White blood cell count 0-5 SEEN /hpf 0-5 [facility] Absolute lymphocyte countOrd ered By: Sneha Rosa on 11-20-2024 Lymphocytes Auto (Unsp spec) [#/Vol] 1.45 10*3/uL 0.83-4.51 [facility] Anion gap in Serum or Plasma Ordered By: Sneha Rosa on 11-20-2024 Anion gap [Moles/Vol] 9 mmol/L 5-15 [facility] Automated lymphocyte count a s percentage of total leukocytesOrdered By: Sneha Rosa on 11-20-2024 Lymphocytes/100 WBC Auto (Unsp spec) 22.3 % 19-41 [facility] BUN/creatinine ratioOrdered By: Sneha Rosa on 11-20-2024 Urea nitrogen/Creatinine [Mass ratio] 14.1 mg/mg 10- [facility] Basic Metabolic Profile (BMP )on 11-20-2024 BUN/CRE 14.1 RATIO Normal - [facility] Comment on above: Performed By: #### L 501.6710, L100.0100, L501.8650, L501.1400, L500.2500, L101.9900 ####[facility] [address] [place], [address] Calcium [Mass/Vol] 8.4 mg/dL Normal 7.6-11.0 [facility] Comment on above: Performed By: #### L 501.6710, L100.0100, L501.8650, L501.1400, L500.2500, L101.9900 ####[facility] [address] [place], [address] Chloride [Moles/Vol] 104 mmol/L Normal 98-108 [facility] Comment on above: Performed By: #### L 501.6710, L100.0100, L501.8650, L501.1400, L500.2500, L101.9900 ####[facility] [address] [place], [address] CO2 [Moles/Vol] 27.2 mmol/L Normal 21.0-32.0 [facility] Comment on above: Performed By: #### L 501.6710, L100.0100, L501.8650, L501.1400, L500.2500, L101.9900 ####[facility] [address] [place], [address] Creatinine [Mass/Vol] 0.91 mg/dL Normal 0.70-1.20 [facility] Comment on above: Performed By: #### L 501.6710, L100.0100, L501.8650, L501.1400, L500.2500, L101.9900 ####[facility] [address] [place], [address] GAP 9 Normal 5-15 [facility] Comment on above: Performed By: #### L 501.6710, L100.0100, L501.8650, L501.1400, L500.2500, L101.9900 ####[facility] [address] [place], [address] GFR/1.73 sq M.predicted among non-blacks MDRD (S/P/Bld) [Vol rate/Area] 66 mL/min/{1.73_m2} Normal >60 [facility] Comment on above: Result Comment: mL/m in/1.73m2 CKD-EPI Creatinine Equation (2020) Performed By: #### L 501.6710, L100.0100, L501.8650, L501.1400, L500.2500, L101.9900 ####[facility] [address] [place], [address] Glucose [Mass/Vol] 141 mg/dL High 70-99 [facility] Comment on above: Performed By: #### L 501.6710, L100.0100, L501.8650, L501.1400, L500.2500, L101.9900 ####[facility] [address] [place], [address] Potassium [Moles/Vol] 3.9 mmol/L Normal 3.3-5.1 [facility] Comment on above: Performed By: #### L 501.6710, L100.0100, L501.8650, L501.1400, L500.2500, L101.9900 ####[facility] [address] [place], [address] Sodium [Moles/Vol] 140 mmol/L Normal 133-145 [facility] Comment on above: Performed By: #### L 501.6710, L100.0100, L501.8650, L501.1400, L500.2500, L101.9900 ####[facility] [address] [place], [address] Urea nitrogen [Mass/Vol] 13 mg/dL Normal 4-19 [facility] Comment on above: Performed By: #### L 501.6710, L100.0100, L501.8650, L501.1400, L500.2500, L101.9900 ####[facility] [address] [place], [address] Basophil percentageOrdered B y: Sneha Rosa on 11-20-2024 Basophils/100 WBC (Bld) 1.1 % High 0-1 [facility] CBC W/Diff, Automatedon Absolute Lymph 1.45 X10 3/uL Normal 0.83-4.51 [facility] Comment on above: Performed By: #### L 501.6710, L100.0100, L501.8650, L501.1400, L500.2500, L101.9900 ####[facility] [address] [place], [address] Absolute Neut 4.1 X10 3/uL Normal 2.0-7.7 [facility] Comment on above: Performed By: #### L 501.6710, L100.0100, L501.8650, L501.1400, L500.2500, L101.9900 ####[facility] [address] [place], [address] Basophils/100 WBC (Bld) 1.1 % High 0-1 [facility] Comment on above: Performed By: #### L 501.6710, L100.0100, L501.8650, L501.1400, L500.2500, L101.9900 ####[facility] [address] [place], [address] Eosinophils/100 WBC (Bld) 3.8 % Normal 0-5 [facility] Comment on above: Performed By: #### L 501.6710, L100.0100, L501.8650, L501.1400, L500.2500, L101.9900 ####[facility] [address] [place], [address] Erythrocyte distribution width (RBC) [Ratio] 15.9 % High 11.6-14.6 [facility] Comment on above: Performed By: #### L 501.6710, L100.0100, L501.8650, L501.1400, L500.2500, L101.9900 ####[facility] [address] [place], [address] Hematocrit (Bld) [Volume fraction] 39.0 % Normal 37-47 [facility] Comment on above: Performed By: #### L 501.6710, L100.0100, L501.8650, L501.1400, L500.2500, L101.9900 ####[facility] [address] [place], [address] Hemoglobin (Bld) [Mass/Vol] 12.0 g/dL Normal 12.0-15.0 [facility] Comment on above: Performed By: #### L 501.6710, L100.0100, L501.8650, L501.1400, L500.2500, L101.9900 ####[facility] [address] [place], [address] IG% 0.600 Normal 0.0-0.9 [facility] Comment on above: Result Comment: IG% - Immature Granulocytes (promyelocytes, myelocytes andmetamyelocytes) > 1% indicates that a LEFT SHIFT is Present. Performed By: #### L 501.6710, L100.0100, L501.8650, L501.1400, L500.2500, L101.9900 ####[facility] [address] [place], [address] Lymphocytes/100 WBC (Bld) 22.3 % Normal 19-41 [facility] Comment on above: Performed By: #### L 501.6710, L100.0100, L501.8650, L501.1400, L500.2500, L101.9900 ####[facility] [address] [place], [address] MCH (RBC) [Entitic mass] 25.7 pg Low 27.0-32.0 [facility] Comment on above: Performed By: #### L 501.6710, L100.0100, L501.8650, L501.1400, L500.2500, L101.9900 ####[facility] [address] [place], [address] MCHC (RBC) [Mass/Vol] 30.8 g/dL Low 32-36 [facility] Comment on above: Performed By: #### L 501.6710, L100.0100, L501.8650, L501.1400, L500.2500, L101.9900 ####[facility] [address] [place], [address] MCV (RBC) [Entitic vol] 83.5 fL Normal 81-99 [facility] Comment on above: Performed By: #### L 501.6710, L100.0100, L501.8650, L501.1400, L500.2500, L101.9900 ####[facility] [address] [place], [address] Monocytes/100 WBC (Bld) 8.6 % Normal 0-10 [facility] Comment on above: Performed By: #### L 501.6710, L100.0100, L501.8650, L501.1400, L500.2500, L101.9900 ####[facility] [address] [place], [address] Neutrophils/100 WBC (Bld) 63.6 % Normal 47-70 [facility] Comment on above: Performed By: #### L 501.6710, L100.0100, L501.8650, L501.1400, L500.2500, L101.9900 ####[facility] [address] [place], [address] Nucleated RBC (Bld) [#/Vol] 0 10*3/uL Normal 0-5 [facility] Comment on above: Performed By: #### L 501.6710, L100.0100, L501.8650, L501.1400, L500.2500, L101.9900 ####[facility] [address] [place], [address] Platelet mean volume (Bld) [Entitic vol] 9.1 fL Normal 6.2-12.0 [facility] Comment on above: Performed By: #### L 501.6710, L100.0100, L501.8650, L501.1400, L500.2500, L101.9900 ####[facility] [address] [place], [address] Platelets (Bld) [#/Vol] 222 10*3/uL Normal 150-450 [facility] Comment on above: Performed By: #### L 501.6710, L100.0100, L501.8650, L501.1400, L500.2500, L101.9900 ####[facility] [address] [place], [address] RBC (Bld) [#/Vol] 4.67 10*6/uL Normal 4.2-5.4 [facility] Comment on above: Performed By: #### L 501.6710, L100.0100, L501.8650, L501.1400, L500.2500, L101.9900 ####[facility] [address] [place], [address] RDW SD 47.9 fl High 35.1-43.9 [facility] Comment on above: Performed By: #### L 501.6710, L100.0100, L501.8650, L501.1400, L500.2500, L101.9900 ####[facility] [address] [place], [address] WBC (Bld) [#/Vol] 6.5 10*3/uL Normal 4.4-11.0 [facility] Comment on above: Performed By: #### L 501.6710, L100.0100, L501.8650, L501.1400, L500.2500, L101.9900 ####[facility] [id number] [place], [address] CRPon 11-20-2024 C-REACTIVE PROT 13.60 mg/L High 0.0-3.0 [facility] Comment on above: Performed By: #### L 501.6710, L100.0100, L501.8650, L501.1400, L500.2500, L101.9900 ####[facility] [id number] [place], [place], [id number] Carbon dioxide, total [Moles /volume] in Central venous bloodOrdered By: Sneha Rosa on 11-20-2024 CO2 [Moles/Vol] 27.2 mmol/L 21.0-32.0 [facility] Chloride assayOrdered By: Pepper Rosa on 11-20-2024 Chloride [Moles/Vol] 104 mmol/L 98-108 [facility] Eosinophil percentageOrdered By: Sneha Rosa on 11-20-2024 Eosinophils/100 WBC (Bld) 3.8 % 0-5 [facility] Erythrocyte Sed Rateon 11-20 SED RATE 32 mm/hr High 0-30 [facility] Comment on above: Performed By: #### L 501.6710, L100.0100, L501.8650, L501.1400, L500.2500, L101.9900 ####[facility] [id number] [place], [place], [address] Erythrocyte distribution wid th ratioOrdered By: Sneha Rosa on 11-20-2024 Erythrocyte distribution width (RBC) [Ratio] 15.9 % High 11.6-14.6 [facility] Erythrocyte distribution wid th standard deviationOrdered By: Sneha Rosa on 11-20-2024 Erythrocyte distribution width (RBC) [Ratio] 47.9 fl High 35.1-43.9 [facility] Erythrocyte sedimentation ra teOrdered By: Sneha Rosa on 11-20-2024 ESR (Bld) [Velocity] 32 mm/h High 0-30 [facility] Glomerular filtration rate ( GFR) estimation/1.73 sq m using serum, plasma, or whole bOrdered By: Sneha Rosa on 11-20-2024 GFR/1.73 sq M.predicted among non-blacks MDRD (S/P/Bld) [Vol rate/Area] 66 mL/min/{1.73_m2} >60 [facility] Hematocrit Auto (Bld) [Volum e fraction]Ordered By: Sneha Rosa on 11-20-2024 Hematocrit (Bld) [Volume fraction] 39.0 % 37-47 [facility] Hemoglobin measurementOrdere d By: Sneha Rosa on 11-20-2024 Hemoglobin (Bld) [Mass/Vol] 12.0 g/dL 12.0-15.0 [facility] Immature granulocytes/100 WB C Auto (Bld)Ordered By: Sneha Rosa on 11-20-2024 Immature granulocytes/100 WBC (Bld) 0.600 % 0.0-0.9 [facility] MCV (mean corpuscular volume ) determinationOrdered By: Sneha Rosa on 11-20-2024 MCV (RBC) [Entitic vol] 83.5 fL 81-99 [facility] Mean corpuscular hemoglobin (MCH) determinationOrdered By: Sneha Rosa on 11-20-2024 MCH (RBC) [Entitic mass] 25.7 pg Low 27.0-32.0 [facility] Monocyte percentageOrdered B y: Sneha Rosa on 11-20-2024 Monocytes/100 WBC (Bld) 8.6 % 0-10 [facility] Neutrophil percentageOrdered By: Sneha Rosa on 11-20-2024 Neutrophils/100 WBC (Bld) 63.6 % 47-70 [facility] Platelet countOrdered By: Pepper Rosa on 11-20-2024 Platelets (Bld) [#/Vol] 222 10*3/uL 150-450 [facility] Potassium measurement (mass/ volume)Ordered By: Sneha Rosa on 11-20-2024 Potassium (Unsp spec) [Mass/Vol] 3.9 mmol/L 3.3-5.1 [facility] RBC Auto (Bld) [#/Vol]Ordere d By: Sneha Rosa on 11-20-2024 RBC (Bld) [#/Vol] 4.67 10*6/uL 4.2-5.4 [facility] Serum creatinine measurement (mass/volume)Ordered By: Sneha Rosa on 11-20-2024 Creatinine [Mass/Vol] 0.91 mg/dL 0.70-1.20 [facility] Serum glucose measurement (m ass/volume)Ordered By: Sneha Rosa on 11-20-2024 Glucose [Mass/Vol] 141 mg/dL High 70-99 [facility] Serum or plasma C reactive p rotein measurement (mass/volume)Ordered By: Sneha Rosa on 11-20-2024 CRP [Mass/Vol] 13.60 mg/L High 0.0-3.0 [facility] Serum or plasma calcium shekhar urement (mass/volume)Ordered By: Sneha Rosa on 11-20-2024 Calcium [Mass/Vol] 8.4 mg/dL 7.6-11.0 [facility] Serum or plasma gentamicin m easurement (mass/volume)Ordered By: Sneha Rosa on 11-20-2024 Gentamicin [Mass/Vol] 11.0 ug/mL High [facility] Serum or plasma urea nitroge n measurement (mass/volume)Ordered By: Sneha Rosa on 11-20-2024 Urea nitrogen [Mass/Vol] 13 mg/dL 4-19 [facility] Serum or plasma uric acid me asurement (mass/volume)Ordered By: Sneha Rosa on 11-20-2024 Urate [Mass/Vol] 8.1 mg/dL High 2.6-6.0 [facility] Sodium levelOrdered By: Sneha Rosa on 11-20-2024 Sodium [Moles/Vol] 140 mmol/L 133-145 [facility] Uric Acidon 11-20-2024 URIC 8.1 mg/dL High 2.6-6.0 [facility] Comment on above: Result Comment: The drugs N-Acetylcysteine and Metamizole may falselydepress this assay. Performed By: #### L 501.6710, L100.0100, L501.8650, L501.1400, L500.2500, L101.9900 ####[facility] [address] [place], [address] White blood cell (WBC) count Ordered By: Sneha Rosa on 11-20-2024 WBC (Bld) [#/Vol] 6.5 10*3/uL 4.4-11.0 [facility] Absolute lymphocyte countOrd ered By: Sneha Rosa on 11-16-2024 Lymphocytes Auto (Unsp spec) [#/Vol] 1.57 10*3/uL 0.83-4.51 [facility] Anion gap in Serum or Plasma Ordered By: Sneha Rosa on 11-16-2024 Anion gap [Moles/Vol] 10 mmol/L 5-15 [facility] Automated lymphocyte count a s percentage of total leukocytesOrdered By: Sneha Rosa on 11-16-2024 Lymphocytes/100 WBC Auto (Unsp spec) 20.9 % 19- [facility] BUN/creatinine ratioOrdered By: Sneha Rosa on 11-16-2024 Urea nitrogen/Creatinine [Mass ratio] 16.5 mg/mg 10-20 [facility] Basophil percentageOrdered B y: Sneha Rosa on 11-16-2024 Basophils/100 WBC (Bld) 0.9 % 0-1 [facility] Bilirubin, totalOrdered By: Sneha Rosa on 11-16-2024 Bilirubin [Mass/Vol] 0.41 mg/dL 0.00-1.30 [facility] CBC W/Diff, Automatedon 10-20 Absolute Lymph 1.57 X10 3/uL Normal 0.83-4.51 [facility] Comment on above: Performed By: #### L 501.6710, L100.0100, L501.8650, L101.9900, L500.4050 ####[facility] [address] [place], [address] Absolute Neut 4.9 X10 3/uL Normal 2.0-7.7 [facility] Comment on above: Performed By: #### L 501.6710, L100.0100, L501.8650, L101.9900, L500.4050 ####[facility] [address] [place], [address] Basophils/100 WBC (Bld) 0.9 % Normal 0-1 [facility] Comment on above: Performed By: #### L 501.6710, L100.0100, L501.8650, L101.9900, L500.4050 ####[facility] [address] [place], [address] Eosinophils/100 WBC (Bld) 4.5 % Normal 0-5 [facility] Comment on above: Performed By: #### L 501.6710, L100.0100, L501.8650, L101.9900, L500.4050 ####[facility] [address] [place], [address] Erythrocyte distribution width (RBC) [Ratio] 15.6 % High 11.6-14.6 [facility] Comment on above: Performed By: #### L 501.6710, L100.0100, L501.8650, L101.9900, L500.4050 ####[facility] [address] [place], [address] Hematocrit (Bld) [Volume fraction] 39.7 % Normal 37-47 [facility] Comment on above: Performed By: #### L 501.6710, L100.0100, L501.8650, L101.9900, L500.4050 ####[facility] [address] [place], [address] Hemoglobin (Bld) [Mass/Vol] 12.4 g/dL Normal 12.0-15.0 [facility] Comment on above: Performed By: #### L 501.6710, L100.0100, L501.8650, L101.9900, L500.4050 ####[facility] [address] [place], [address] IG% 0.500 Normal 0.0-0.9 [facility] Comment on above: Result Comment: IG% - Immature Granulocytes (promyelocytes, myelocytes andmetamyelocytes) > 1% indicates that a LEFT SHIFT is Present. Performed By: #### L 501.6710, L100.0100, L501.8650, L101.9900, L500.4050 ####[facility] [address] [place], [address] Lymphocytes/100 WBC (Bld) 20.9 % Normal 19-41 [facility] Comment on above: Performed By: #### L 501.6710, L100.0100, L501.8650, L101.9900, L500.4050 ####[facility] [address] [place], [address] MCH (RBC) [Entitic mass] 25.9 pg Low 27.0-32.0 [facility] Comment on above: Performed By: #### L 501.6710, L100.0100, L501.8650, L101.9900, L500.4050 ####[facility] [address] [place], [address] MCHC (RBC) [Mass/Vol] 31.2 g/dL Low 32-36 [facility] Comment on above: Performed By: #### L 501.6710, L100.0100, L501.8650, L101.9900, L500.4050 ####[facility] [address] [place], [address] MCV (RBC) [Entitic vol] 83.1 fL Normal 81-99 [facility] Comment on above: Performed By: #### L 501.6710, L100.0100, L501.8650, L101.9900, L500.4050 ####[facility] [address] [place], [address] Monocytes/100 WBC (Bld) 7.7 % Normal 0-10 [facility] Comment on above: Performed By: #### L 501.6710, L100.0100, L501.8650, L101.9900, L500.4050 ####[facility] [address] [place], [address] Neutrophils/100 WBC (Bld) 65.5 % Normal 47-70 [facility] Comment on above: Performed By: #### L 501.6710, L100.0100, L501.8650, L101.9900, L500.4050 ####[facility] [address] [place], [address] Nucleated RBC (Bld) [#/Vol] 0 10*3/uL Normal 0-5 [facility] Comment on above: Performed By: #### L 501.6710, L100.0100, L501.8650, L101.9900, L500.4050 ####[facility] [address] [place], [address] Platelet mean volume (Bld) [Entitic vol] 9.6 fL Normal 6.2-12.0 [facility] Comment on above: Performed By: #### L 501.6710, L100.0100, L501.8650, L101.9900, L500.4050 ####[facility] [address] [place], [address] Platelets (Bld) [#/Vol] 207 10*3/uL Normal 150-450 [facility] Comment on above: Performed By: #### L 501.6710, L100.0100, L501.8650, L101.9900, L500.4050 ####[facility] [address] [place], [address] RBC (Bld) [#/Vol] 4.78 10*6/uL Normal 4.2-5.4 [facility] Comment on above: Performed By: #### L 501.6710, L100.0100, L501.8650, L101.9900, L500.4050 ####[facility] [address] [place], [address] RDW SD 47.4 fl High 35.1-43.9 [facility] Comment on above: Performed By: #### L 501.6710, L100.0100, L501.8650, L101.9900, L500.4050 ####[facility] [address] [place], [address] WBC (Bld) [#/Vol] 7.5 10*3/uL Normal 4.4-11.0 [facility] Comment on above: Performed By: #### L 501.6710, L100.0100, L501.8650, L101.9900, L500.4050 ####[facility] [address] [place], [address] CRPon 11-16-2024 C-REACTIVE PROT 31.70 mg/L High 0.0-3.0 [facility] Comment on above: Performed By: #### L 501.6710, L100.0100, L501.8650, L101.9900, L500.4050 ####[facility] [address] [place], [address] Carbon dioxide, total [Moles /volume] in Central venous bloodOrdered By: Sneha Rosa on 11-16-2024 CO2 [Moles/Vol] 27.0 mmol/L 21.0-32.0 [facility] Chloride assayOrdered By: Pepper Rosa on 11-16-2024 Chloride [Moles/Vol] 103 mmol/L 98-108 [facility] Comprehensive Metabolic Prof ilon 11-16-2024 Albumin [Mass/Vol] 3.4 g/dL Normal 3.4-4.8 [facility] Comment on above: Performed By: #### L 501.6710, L100.0100, L501.8650, L101.9900, L500.4050 ####[facility] [address] [place], [address] Albumin/Globulin [Mass ratio] 1.1 {ratio} Normal 0.9-2.4 [facility] Comment on above: Performed By: #### L 501.6710, L100.0100, L501.8650, L101.9900, L500.4050 ####[facility] [address] [place], [address] ALK PHOS 96 U/L Normal 35-104 [facility] Comment on above: Performed By: #### L 501.6710, L100.0100, L501.8650, L101.9900, L500.4050 ####[facility] [address] [place], [address] ALT [Catalytic activity/Vol] 19 U/L Normal <=34 [facility] Comment on above: Performed By: #### L 501.6710, L100.0100, L501.8650, L101.9900, L500.4050 ####[facility] [address] [place], [address] AST [Catalytic activity/Vol] 32 U/L Normal <=31 [facility] Comment on above: Performed By: #### L 501.6710, L100.0100, L501.8650, L101.9900, L500.4050 ####[facility] [address] [place], [address] Bilirubin [Mass/Vol] 0.41 mg/dL Normal 0.00-1.30 [facility] Comment on above: Performed By: #### L 501.6710, L100.0100, L501.8650, L101.9900, L500.4050 ####[facility] [address] [place], [address] BUN/CRE 16.5 RATIO Normal 10-20 [facility] Comment on above: Performed By: #### L 501.6710, L100.0100, L501.8650, L101.9900, L500.4050 ####[facility] [address] [place], [address] Calcium [Mass/Vol] 8.3 mg/dL Normal 7.6-11.0 [facility] Comment on above: Performed By: #### L 501.6710, L100.0100, L501.8650, L101.9900, L500.4050 ####[facility] [address], [address] Chloride [Moles/Vol] 103 mmol/L Normal 98-108 [facility] Comment on above: Performed By: #### L 501.6710, L100.0100, L501.8650, L101.9900, L500.4050 ####[facility] [address] [place], [address] CO2 [Moles/Vol] 27.0 mmol/L Normal 21.0-32.0 [facility] Comment on above: Performed By: #### L 501.6710, L100.0100, L501.8650, L101.9900, L500.4050 ####[facility] [address] [place], [address] Creatinine [Mass/Vol] 0.85 mg/dL Normal 0.70-1.20 [facility] Comment on above: Performed By: #### L 501.6710, L100.0100, L501.8650, L101.9900, L500.4050 ####[facility] [address] [place], [address] ECRCL 82.57 ml/min Normal 50-250 [facility] Comment on above: Performed By: #### L 501.6710, L100.0100, L501.8650, L101.9900, L500.4050 ####[facility] [address] [place], [address] GAP 10 Normal 5-15 [facility] Comment on above: Performed By: #### L 501.6710, L100.0100, L501.8650, L101.9900, L500.4050 ####[facility] [address] [place], [address] GFR/1.73 sq M.predicted among non-blacks MDRD (S/P/Bld) [Vol rate/Area] 71 mL/min/{1.73_m2} Normal >60 [facility] Comment on above: Result Comment: mL/m in/1.73m2 CKD-EPI Creatinine Equation (2020) Performed By: #### L 501.6710, L100.0100, L501.8650, L101.9900, L500.4050 ####[facility] [address] [place], [address] Globulin (S) [Mass/Vol] 3.1 g/dL Normal 2.2-4.2 [facility] Comment on above: Performed By: #### L 501.6710, L100.0100, L501.8650, L101.9900, L500.4050 ####[facility] [address] [place], [address] Glucose [Mass/Vol] 137 mg/dL High 70-99 [facility] Comment on above: Performed By: #### L 501.6710, L100.0100, L501.8650, L101.9900, L500.4050 ####[facility] [address] [place], [address] Potassium [Moles/Vol] 4.2 mmol/L Normal 3.3-5.1 [facility] Comment on above: Performed By: #### L 501.6710, L100.0100, L501.8650, L101.9900, L500.4050 ####[facility] [address] [place], [address] Sodium [Moles/Vol] 140 mmol/L Normal 133-145 [facility] Comment on above: Performed By: #### L 501.6710, L100.0100, L501.8650, L101.9900, L500.4050 ####[facility] [address] [place], [place], [address] T PROT 6.4 g/dL Normal 5.9-8.4 [facility] Comment on above: Performed By: #### L 501.6710, L100.0100, L501.8650, L101.9900, L500.4050 ####[facility] [address] [place], [address] Urea nitrogen [Mass/Vol] 14 mg/dL Normal 4-19 [facility] Comment on above: Performed By: #### L 501.6710, L100.0100, L501.8650, L101.9900, L500.4050 ####[facility] [address] [place], [place], [address] Eosinophil percentageOrdered By: Sneha Rosa on 11-16-2024 Eosinophils/100 WBC (Bld) 4.5 % 0-5 [facility] Erythrocyte Sed Rateon 11-16 SED RATE 28 mm/hr Normal 0-30 [facility] Comment on above: Performed By: #### L 501.6710, L100.0100, L501.8650, L101.9900, L500.4050 ####[facility] [address] [place], [place], [address] Erythrocyte distribution wid th ratioOrdered By: Sneha Rosa on 11-16-2024 Erythrocyte distribution width (RBC) [Ratio] 15.6 % High 11.6-14.6 [facility] Erythrocyte distribution wid th standard deviationOrdered By: Sneha Rosa on 11-16-2024 Erythrocyte distribution width (RBC) [Ratio] 47.4 fl High 35.1-43.9 [facility] Erythrocyte sedimentation ra teOrdered By: Sneha Rosa on 11-16-2024 ESR (Bld) [Velocity] 28 mm/h 0-30 [facility] Gentamicin, Randomon 025 GENT.RANDOM 9.8 ug/mL Normal [facility] Comment on above: Result Comment: [place] om level based on once daily dose of antibiotic.Please contact Pharmacy Services (#[phone]) for interpretationof results.This result does not represent either a peak or a troughlevel for this drug. Performed By: #### L 501.6710, L100.0100, L501.8650, L101.9900, L500.4050 ####[facility] [address] [place], [address] Glomerular filtration rate ( GFR) estimation/1.73 sq m using serum, plasma, or whole bOrdered By: Sneha Rosa on 11-16-2024 GFR/1.73 sq M.predicted among non-blacks MDRD (S/P/Bld) [Vol rate/Area] 71 mL/min/{1.73_m2} >60 [facility] Hematocrit Auto (Bld) [Volum e fraction]Ordered By: Sneha Rosa on 11-16-2024 Hematocrit (Bld) [Volume fraction] 39.7 % 37-47 [facility] Hemoglobin measurementOrdere d By: Sneha Rosa on 11-16-2024 Hemoglobin (Bld) [Mass/Vol] 12.4 g/dL 12.0-15.0 [facility] Immature granulocytes/100 WB C Auto (Bld)Ordered By: Sneha Rosa on 11-16-2024 Immature granulocytes/100 WBC (Bld) 0.500 % 0.0-0.9 [facility] MCV (mean corpuscular volume ) determinationOrdered By: Sneha Rosa on 11-16-2024 MCV (RBC) [Entitic vol] 83.1 fL 81-99 [facility] Mean corpuscular hemoglobin (MCH) determinationOrdered By: Sneha Rosa on 11-16-2024 MCH (RBC) [Entitic mass] 25.9 pg Low 27.0-32.0 [facility] Monocyte percentageOrdered B y: Sneha Rosa on 11-16-2024 Monocytes/100 WBC (Bld) 7.7 % 0-10 [facility] Neutrophil percentageOrdered By: Sneha Rosa on 11-16-2024 Neutrophils/100 WBC (Bld) 65.5 % 47-70 [facility] No Panel InformationOrdered By: Sneha Rosa on 11-16-2024 32 U/L <32 [facility] Platelet countOrdered By: Pepper Rosa on 11-16-2024 Platelets (Bld) [#/Vol] 207 10*3/uL 150-450 [facility] Potassium measurement (mass/ volume)Ordered By: Sneha Rosa on 11-16-2024 Potassium (Unsp spec) [Mass/Vol] 4.2 mmol/L 3.3-5.1 [facility] RBC Auto (Bld) [#/Vol]Ordere d By: Sneha Rosa on 11-16-2024 RBC (Bld) [#/Vol] 4.78 10*6/uL 4.2-5.4 [facility] Serum creatinine measurement (mass/volume)Ordered By: Sneha Rosa on 11-16-2024 Creatinine [Mass/Vol] 0.85 mg/dL 0.70-1.20 [facility] Serum globulin measurementOr dered By: Sneha Rosa on 11-16-2024 Globulin (S) [Mass/Vol] 3.1 g/dL 2.2-4.2 [facility] Serum glucose measurement (m ass/volume)Ordered By: Sneha Rosa on 11-16-2024 Glucose [Mass/Vol] 137 mg/dL High 70-99 [facility] Serum or plasma C reactive p rotein measurement (mass/volume)Ordered By: Sneha Rosa on 11-16-2024 CRP [Mass/Vol] 31.70 mg/L High 0.0-3.0 [facility] Serum or plasma alanine gar otransferase (ALT) measurementOrdered By: Sneha Rosa on 11-16-2024 ALT [Catalytic activity/Vol] 19 U/L <35 [facility] Serum or plasma albumin shekhar urement (mass/volume)Ordered By: Sneha Rosa on 11-16-2024 Albumin [Mass/Vol] 3.4 g/dL 3.4-4.8 [facility] Serum or plasma albumin/glob ulin mass ratioOrdered By: Sneha Rosa on 11-16-2024 Albumin/Globulin [Mass ratio] 1.1 {ratio} 0.9-2.4 [facility] Serum or plasma alkaline [place] sphatase measurementOrdered By: Sneha Rosa on 11-16-2024 ALP [Catalytic activity/Vol] 96 U/L 35-104 [facility] Serum or plasma calcium shekhar urement (mass/volume)Ordered By: Sneha Rosa on 11-16-2024 Calcium [Mass/Vol] 8.3 mg/dL 7.6-11.0 [facility] Serum or plasma gentamicin m easurement (mass/volume)Ordered By: Sneha Rosa on 11-16-2024 Gentamicin [Mass/Vol] 9.8 ug/mL [facility] Serum or plasma urea nitroge n measurement (mass/volume)Ordered By: Sneha Rosa on 11-16-2024 Urea nitrogen [Mass/Vol] 14 mg/dL 4-19 [facility] Sodium levelOrdered By: Sneha Rosa on 11-16-2024 Sodium [Moles/Vol] 140 mmol/L 133-145 [facility] Total proteinOrdered By: Ariella Rosa on 11-16-2024 Protein [Mass/Vol] 6.4 g/dL 5.9-8.4 [facility] White blood cell (WBC) count Ordered By: Sneha Rosa on 11-16-2024 WBC (Bld) [#/Vol] 7.5 10*3/uL 4.4-11.0 [facility] Venous Duplex US, Unilateral on 11-15-2024 Venous Duplex US, Unilateral Normal [facility] Venous duplex ultrasound rep ortOrdered By: Eliud Giraldo on 11-15-2024 US Vein [facility] Work Phone: [phone] Ankle min 3 Viewson 11-11-19 25 Ankle min 3 Views Normal [facility] Tibia Fibula 2 Viewson 11-10 Tibia Fibula 2 Views Normal [facility] Culture, Anaerobic Any Sourc dougie 11-08-2024 CUAN Normal [facility] Comment on above: Performed By: #### M 100.4001, M100.2000, M100.3000 ####[facility] [address] [place], [address] Basic Metabolic Profile (BMP )on 11-06-2024 BUN Normal 4-19 [facility] Comment on above: Result Comment: MOVE D OVER BY ACCIDENT. Performed By: #### L 501.9985, L500.2500 ####[facility] [address] [place], [address] BUN/CRE Normal 10-20 [facility] Comment on above: Result Comment: MOVE D OVER BY ACCIDENT. Performed By: #### L 501.9985, L500.2500 ####[facility] [address] [place], [address] Calcium Normal 7.6-11.0 [facility] Comment on above: Result Comment: MOVE D OVER BY ACCIDENT. Performed By: #### L 501.9985, L500.2500 ####[facility] [address] [place], [address] CL Normal 98-108 [facility] Comment on above: Result Comment: MOVE D OVER BY ACCIDENT. Performed By: #### L 501.9985, L500.2500 ####[facility] [address] [place], [address] CO2 Normal 21.0-32.0 [facility] Comment on above: Result Comment: MOVE D OVER BY ACCIDENT. Performed By: #### L 501.9985, L500.2500 ####[facility] [address] [place], [address] CREAT,SERUM Normal 0.70-1.20 [facility] Comment on above: Result Comment: MOVE D OVER BY ACCIDENT. Performed By: #### L 501.9985, L500.2500 ####[facility] [address] [place], [address] eGFR Normal >60 [facility] Comment on above: Result Comment: MOVE D OVER BY ACCIDENT. Performed By: #### L 501.9985, L500.2500 ####[facility] [address], [address] GAP Normal 5-15 [facility] Comment on above: Result Comment: MOVE D OVER BY ACCIDENT. Performed By: #### L 501.9985, L500.2500 ####[facility] [address] [place], [address] GLU Normal 70-99 [facility] Comment on above: Result Comment: MOVE D OVER BY ACCIDENT. Performed By: #### L 501.9985, L500.2500 ####[facility] [address] [place], [address] Potassium Normal 3.3-5.1 [facility] Comment on above: Result Comment: MOVE D OVER BY ACCIDENT. Performed By: #### L 501.9985, L500.2500 ####[facility] [address] [place], [address] Basic Metabolic Profile (BMP) Normal 133-145 [facility] Comment on above: Result Comment: MOVE D OVER BY ACCIDENT. Performed By: #### L 501.9985, L500.2500 ####[facility] [address] [place], [address] Hemoglobin A1con 11-06-2024 HbA1c (Bld) [Mass fraction] 6.7 % High <=5.6 [facility] Comment on above: Result Comment: Norm al < 5.7 % Prediabetic 5.7 - 6.4 % Diabetic >or= 6.5 % Please note range changes. Performed By: #### L 501.9985, L500.2500 ####[facility] [address] [place], [address] Hemoglobin A1c percentageOrd ered By: Luis Cortés on 11-06-2024 HbA1c (Bld) [Mass fraction] 6.7 % High <5.7 [facility] Comment on above: Normal < 5.7 % Predi abetic 5.7 - 6.4 % Diabetic >or= 6.5 % Please note range changes. Internal Medicine Office Vis iton 11-06-2024 Internal Medicine Office Visit Normal [facility] TSH DL <= 0.005 mIU/L QnOrde red By: Luis Cortés on 11-06-2024 TSH Qn 2.190 uIU/mL 0.300-4.200 [facility] Thyroid Stim Hormone (TSH)on 11-06-2024 TSH 2.190 uIU/mL Normal 0.300-4.200 [facility] Comment on above: Performed By: #### L 501.9520 ####[facility] [address] [place], [address] Gram Stainon 11-05-2024 GS List Antibiotics Las t 48 Hours? none List Antibiotics to be Started? none Gram Stain Rare Gram negative rods No cells seen Normal [facility] Comment on above: Performed By: #### M 100.4001, M100.2000, M100.3000 ####[facility] [address] [place], [address] Wound Cultureon 11-05-2024 WC Normal [facility] Comment on above: Performed By: #### M 100.4001, M100.2000, M100.3000 ####[facility] [address] [place], [address] Anaerobic cultureOrdered By: Sneha Rosa on 11-03-2024 Bacteria identified Anaer cx Nom (Unsp spec) Anaerobic cocci Abnormal [facility] Gram stainOrdered By: Sneha self on 11-03-2024 Microscopic observation Gram stain Nom (Unsp spec) [facility] Routine wound cultureOrdered By: Sneha Rosa on 11-03-2024 Microbial culture, routine Klebsiella pneumoniae sp pneum Abnormal [facility] Pulmonary Visit Reporton Pulmonary Visit Report Normal [facility] Absolute lymphocyte countOrd ered By: Zainab Cherry on 10-16-2024 Lymphocytes Auto (Unsp spec) [#/Vol] 1.22 10*3/uL 0.83-4.51 [facility] Absolute neutrophil countOrd ered By: Zainab Cherry on 10-16-2024 Neutrophils (Bld) [#/Vol] 4.2 10*3/uL 2.0-7.7 [facility] Anion gap in Serum or Plasma Ordered By: Zainab Cherry on 10-16-2024 Anion gap [Moles/Vol] 10 mmol/L 5- [facility] Automated lymphocyte count a s percentage of total leukocytesOrdered By: Zainab Cherry on 10-16-2024 Lymphocytes/100 WBC Auto (Unsp spec) 19.5 % - [facility] BUN/creatinine ratioOrdered By: Zainab Cherry on 10-16-2024 Urea nitrogen/Creatinine [Mass ratio] 19.6 mg/mg 10- [facility] Basophil percentageOrdered B y: Zainab Cherry on 10-16-2024 Basophils/100 WBC (Bld) 1.0 % 0-1 [facility] Bilirubin, totalOrdered By: Zainab Cherry on 10-16-2024 Bilirubin [Mass/Vol] 0.30 mg/dL 0.00-1.30 [facility] CBC W/Diff, Automatedon 09-20 Absolute Lymph 1.22 X10 3/uL Normal 0.83-4.51 [facility] Comment on above: Performed By: #### L 100.0100, L500.4050, L500.4100 ####[facility] [address] [place], [address] Absolute Neut 4.2 X10 3/uL Normal 2.0-7.7 [facility] Comment on above: Performed By: #### L 100.0100, L500.4050, L500.4100 ####[facility] [address] [place], [address] Basophils/100 WBC (Bld) 1.0 % Normal 0-1 [facility] Comment on above: Performed By: #### L 100.0100, L500.4050, L500.4100 ####[facility] [address] [place], [address] Eosinophils/100 WBC (Bld) 4.6 % Normal 0-5 [facility] Comment on above: Performed By: #### L 100.0100, L500.4050, L500.4100 ####[facility] [address] [place], [address] Erythrocyte distribution width (RBC) [Ratio] 15.4 % High 11.6-14.6 [facility] Comment on above: Performed By: #### L 100.0100, L500.4050, L500.4100 ####[facility] [address] [place], [address] Hematocrit (Bld) [Volume fraction] 41.2 % Normal 37-47 [facility] Comment on above: Performed By: #### L 100.0100, L500.4050, L500.4100 ####[facility] [address] [place], [address] Hemoglobin (Bld) [Mass/Vol] 12.8 g/dL Normal 12.0-15.0 [facility] Comment on above: Performed By: #### L 100.0100, L500.4050, L500.4100 ####[facility] [address] [place], [address] IG% 0.500 Normal 0.0-0.9 [facility] Comment on above: Result Comment: IG% - Immature Granulocytes (promyelocytes, myelocytes andmetamyelocytes) > 1% indicates that a LEFT SHIFT is Present. Performed By: #### L 100.0100, L500.4050, L500.4100 ####[facility] [address] [place], [address] Lymphocytes/100 WBC (Bld) 19.5 % Normal 19-41 [facility] Comment on above: Performed By: #### L 100.0100, L500.4050, L500.4100 ####[facility] [address] [place], [address] MCH (RBC) [Entitic mass] 25.8 pg Low 27.0-32.0 [facility] Comment on above: Performed By: #### L 100.0100, L500.4050, L500.4100 ####[facility] [address] [place], [address] MCHC (RBC) [Mass/Vol] 31.1 g/dL Low 32-36 [facility] Comment on above: Performed By: #### L 100.0100, L500.4050, L500.4100 ####[facility] [address] [place], [address] MCV (RBC) [Entitic vol] 82.9 fL Normal 81-99 [facility] Comment on above: Performed By: #### L 100.0100, L500.4050, L500.4100 ####[facility] [address] [place], [address] Monocytes/100 WBC (Bld) 7.2 % Normal 0-10 [facility] Comment on above: Performed By: #### L 100.0100, L500.4050, L500.4100 ####[facility] [address] [place], [address] Neutrophils/100 WBC (Bld) 67.2 % Normal 47-70 [facility] Comment on above: Performed By: #### L 100.0100, L500.4050, L500.4100 ####[facility] [address] [place], [address] Nucleated RBC (Bld) [#/Vol] 0 10*3/uL Normal 0-5 [facility] Comment on above: Performed By: #### L 100.0100, L500.4050, L500.4100 ####[facility] [address] [place], [address] Platelet mean volume (Bld) [Entitic vol] 9.4 fL Normal 6.2-12.0 [facility] Comment on above: Performed By: #### L 100.0100, L500.4050, L500.4100 ####[facility] [address] [place], [address] Platelets (Bld) [#/Vol] 247 10*3/uL Normal 150-450 [facility] Comment on above: Performed By: #### L 100.0100, L500.4050, L500.4100 ####[facility] [address] [place], [address] RBC (Bld) [#/Vol] 4.97 10*6/uL Normal 4.2-5.4 [facility] Comment on above: Performed By: #### L 100.0100, L500.4050, L500.4100 ####[facility] [address] [place], [address] RDW SD 46.7 fl High 35.1-43.9 [facility] Comment on above: Performed By: #### L 100.0100, L500.4050, L500.4100 ####[facility] [address] [place], [address] WBC (Bld) [#/Vol] 6.3 10*3/uL Normal 4.4-11.0 [facility] Comment on above: Performed By: #### L 100.0100, L500.4050, L500.4100 ####[facility] [address] [place], [address] Calculated very low density lipoprotein (VLDL) cholesterol measurementOrdered By: Zainab Cherry on 10-16-2024 Calculated very low density lipoprotein (VLDL) cholesterol measurement 43 mg/dL High 5-40 [facility] Carbon dioxide, total [Moles /volume] in Central venous bloodOrdered By: Zainab Cherry on 10-16-2024 CO2 [Moles/Vol] 26.1 mmol/L 21.0-32.0 [facility] Carotid Duplex Ultrasoundon 10-16-2024 Carotid Duplex Ultrasound Normal [facility] Chloride assayOrdered By: Fletcher Cherry on 10-16-2024 Chloride [Moles/Vol] 104 mmol/L 98-108 [facility] Comprehensive Metabolic Prof ilon 10-16-2024 Albumin [Mass/Vol] 3.6 g/dL Normal 3.4-4.8 [facility] Comment on above: Performed By: #### L 100.0100, L500.4050, L500.4100 ####[facility] [address] [place], [address] Albumin/Globulin [Mass ratio] 1.0 {ratio} Normal 0.9-2.4 [facility] Comment on above: Performed By: #### L 100.0100, L500.4050, L500.4100 ####[facility] [address] [place], [address] ALK PHOS 101 U/L Normal 35-104 [facility] Comment on above: Performed By: #### L 100.0100, L500.4050, L500.4100 ####[facility] [address] [place], [address] ALT [Catalytic activity/Vol] 8 U/L Normal <=34 [facility] Comment on above: Performed By: #### L 100.0100, L500.4050, L500.4100 ####[facility] [address] [place], [address] AST [Catalytic activity/Vol] 19 U/L Normal <=31 [facility] Comment on above: Performed By: #### L 100.0100, L500.4050, L500.4100 ####[facility] [address] [place], [address] Bilirubin [Mass/Vol] 0.30 mg/dL Normal 0.00-1.30 [facility] Comment on above: Performed By: #### L 100.0100, L500.4050, L500.4100 ####[facility] [address] [place], [address] BUN/CRE 19.6 RATIO Normal 10-20 [facility] Comment on above: Performed By: #### L 100.0100, L500.4050, L500.4100 ####[facility] [address] [place], [address] Calcium [Mass/Vol] 9.0 mg/dL Normal 7.6-11.0 [facility] Comment on above: Performed By: #### L 100.0100, L500.4050, L500.4100 ####[facility] [address] [place], [address] Chloride [Moles/Vol] 104 mmol/L Normal 98-108 [facility] Comment on above: Performed By: #### L 100.0100, L500.4050, L500.4100 ####[facility] [address] [place], [address] CO2 [Moles/Vol] 26.1 mmol/L Normal 21.0-32.0 [facility] Comment on above: Performed By: #### L 100.0100, L500.4050, L500.4100 ####[facility] [address] [place], [address] Creatinine [Mass/Vol] 0.94 mg/dL Normal 0.70-1.20 [facility] Comment on above: Performed By: #### L 100.0100, L500.4050, L500.4100 ####[facility] [address] [place], [address] GAP 10 Normal 5-15 [facility] Comment on above: Performed By: #### L 100.0100, L500.4050, L500.4100 ####[facility] [address] [place], [address] GFR/1.73 sq M.predicted among non-blacks MDRD (S/P/Bld) [Vol rate/Area] 64 mL/min/{1.73_m2} Normal >60 [facility] Comment on above: Result Comment: mL/m in/1.73m2 CKD-EPI Creatinine Equation (2020) Performed By: #### L 100.0100, L500.4050, L500.4100 ####[facility] [address] [place], [address] Globulin (S) [Mass/Vol] 3.5 g/dL Normal 2.2-4.2 [facility] Comment on above: Performed By: #### L 100.0100, L500.4050, L500.4100 ####[facility] [address] [place], [address] Glucose [Mass/Vol] 119 mg/dL High 70-99 [facility] Comment on above: Performed By: #### L 100.0100, L500.4050, L500.4100 ####[facility] [address] [place], [address] Potassium [Moles/Vol] 4.3 mmol/L Normal 3.3-5.1 [facility] Comment on above: Performed By: #### L 100.0100, L500.4050, L500.4100 ####[facility] [address] [place], [address] Sodium [Moles/Vol] 140 mmol/L Normal 133-145 [facility] Comment on above: Performed By: #### L 100.0100, L500.4050, L500.4100 ####[facility] [address], [address] T PROT 7.1 g/dL Normal 5.9-8.4 [facility] Comment on above: Performed By: #### L 100.0100, L500.4050, L500.4100 ####[facility] [address] [place], [address] Urea nitrogen [Mass/Vol] 18 mg/dL Normal 4-19 [facility] Comment on above: Performed By: #### L 100.0100, L500.4050, L500.4100 ####[facility] [address] [place], [address] Eosinophil percentageOrdered By: Zainab Cherry on 10-16-2024 Eosinophils/100 WBC (Bld) 4.6 % 0-5 [facility] Erythrocyte distribution wid th ratioOrdered By: Zainab Cherry on 10-16-2024 Erythrocyte distribution width (RBC) [Ratio] 15.4 % High 11.6-14.6 [facility] Erythrocyte distribution wid th standard deviationOrdered By: Zainab Cherry on 10-16-2024 Erythrocyte distribution width (RBC) [Ratio] 46.7 fl High 35.1-43.9 [facility] Glomerular filtration rate ( GFR) estimation/1.73 sq m using serum, plasma, or whole bOrdered By: Zainab Cherry on 10-16-2024 GFR/1.73 sq M.predicted among non-blacks MDRD (S/P/Bld) [Vol rate/Area] 64 mL/min/{1.73_m2} >60 [facility] Comment on above: mL/min/1.73m2 CKD-EP I Creatinine Equation (2020) Hematocrit Auto (Bld) [Volum e fraction]Ordered By: Zainab Cherry on 10-16-2024 Hematocrit (Bld) [Volume fraction] 41.2 % 37-47 [facility] Hemoglobin measurementOrdere d By: Zainab Cherry on 10-16-2024 Hemoglobin (Bld) [Mass/Vol] 12.8 g/dL 12.0-15.0 [facility] Immature granulocytes/100 WB C Auto (Bld)Ordered By: Zainab Cherry on 10-16-2024 Immature granulocytes/100 WBC (Bld) 0.500 % 0.0-0.9 [facility] Comment on above: IG% - Immature Granu locytes (promyelocytes, myelocytes and metamyelocytes) > 1% indicates that a LEFT SHIFT is Present. LDL calc ser/plasOrdered By: Zainab Cherry on 10-16-2024 Cholesterol in LDL [Mass/Vol] 98 mg/dL [facility] Comment on above: Plxpjpbdqx=201-887 m g/dL & Higher Ante=444 mg/dL or greater Laboratory - Chemistry and C hemistry - challengeOrdered By: Zainab Cherry on 10-16-2024 AST [Catalytic activity/Vol] 19 U/L <32 [facility] Lipid Profileon 10-16-2024 CHOL:HDL 4.72 Normal [facility] Comment on above: Performed By: #### L 100.0100, L500.4050, L500.4100 ####[facility] [address] [place], [address] Cholesterol [Mass/Vol] 179 mg/dL Normal <=200 [facility] Comment on above: Result Comment: Chol esterol level, Desirable <200 mg/dLBorderline high cholesterol 200-239 mg/dLHigh cholesterol >=240 mg/dLRecommendations of the NCEP Adult Treatment Panel for thefollowing risk-cutoff thresholds for the [place] Americanpulation. Performed By: #### L 100.0100, L500.4050, L500.4100 ####[facility] [address] [place], [address] Cholesterol in HDL [Mass/Vol] 38 mg/dL Low [facility] Comment on above: Result Comment: Maria Eugenia onal Cholesterol Education Program (NCEP) guidelines:<40 mg/dL: Low HDL-cholesterol (major risk factor for CHD)>= 60 mg/dL: High HDL-cholesterol (negative risk factor forCHD)HDL-cholesterol is affected by a number of factors, e.g.smoking, exercise, hormones, sex and age. Performed By: #### L 100.0100, L500.4050, L500.4100 ####[facility] [address] [place], [address] Cholesterol in LDL [Mass/Vol] 98 mg/dL Normal [facility] Comment on above: Result Comment: Bord mqbtvu=814-552 mg/dL Higher Fidv=044 mg/dL or greater Performed By: #### L 100.0100, L500.4050, L500.4100 ####[facility] [address] [place], [address] Cholesterol in VLDL [Mass/Vol] 43 mg/dL High 5-40 [facility] Comment on above: Performed By: #### L 100.0100, L500.4050, L500.4100 ####[facility] [address] [place], [address] Triglyceride [Mass/Vol] 214 mg/dL High [facility] Comment on above: Result Comment: The drugs N-Acetylcysteine and Metamizole may falselydepress this assay.Normal range: <150 mg/dLBorderline High: 150-199 mg/dLHigh: 200-499 mg/dLVery High: >500 mg/dL Performed By: #### L 100.0100, L500.4050, L500.4100 ####[facility] [address] [place], [address] MCV (mean corpuscular volume ) determinationOrdered By: Zainab Cherry on 10-16-2024 MCV (RBC) [Entitic vol] 82.9 fL 81-99 [facility] Mean corpuscular hemoglobin (MCH) determinationOrdered By: Zainab Cherry on 10-16-2024 MCH (RBC) [Entitic mass] 25.8 pg Low 27.0-32.0 [facility] Mean corpuscular hemoglobin concentration (MCHC) determinationOrdered By: Zainab Cherry on 10-16-2024 MCHC (RBC) [Mass/Vol] 31.1 g/dL Low 32-36 [facility] Mean platelet volume determi nationOrdered By: Zainab Cherry on 10-16-2024 Platelet mean volume (Bld) [Entitic vol] 9.4 fL 6.2-12.0 [facility] Monocyte percentageOrdered B y: Zainab Cherry on 10-16-2024 Monocytes/100 WBC (Bld) 7.2 % 0-10 [facility] Neutrophil percentageOrdered By: Zainab Cherry on 10-16-2024 Neutrophils/100 WBC (Bld) 67.2 % 47-70 [facility] No Panel InformationOrdered By: Zainab Cherry on 10-16-2024 19 U/L <32 [facility] Nucleated red blood cell per centageOrdered By: Zainab Cherry on 10-16-2024 Nucleated RBC/100 WBC (Bld) [Ratio] 0 % 0-5 [facility] Platelet countOrdered By: Fletcher Cherry on 10-16-2024 Platelets (Bld) [#/Vol] 247 10*3/uL 150-450 [facility] Potassium measurement (mass/ volume)Ordered By: Zainab Cherry on 10-16-2024 Potassium (Unsp spec) [Mass/Vol] 4.3 mmol/L 3.3-5.1 [facility] RBC Auto (Bld) [#/Vol]Ordere d By: Zainab Cherry on 10-16-2024 RBC (Bld) [#/Vol] 4.97 10*6/uL 4.2-5.4 [facility] Screening total cholesterol/ high density lipoprotein (HDL) cholesterol ratioOrdered By: Zainab Cherry on 10-16-2024 Cholesterol.total/Chol esterol in HDL [Mass ratio] 4.72 {ratio} [facility] Serum creatinine measurement (mass/volume)Ordered By: Zainab Cherry on 10-16-2024 Creatinine [Mass/Vol] 0.94 mg/dL 0.70-1.20 [facility] Serum globulin measurementOr dered By: Zainab Cherry on 10-16-2024 Globulin (S) [Mass/Vol] 3.5 g/dL 2.2-4.2 [facility] Serum glucose measurement (m ass/volume)Ordered By: Zainab Cherry on 10-16-2024 Glucose [Mass/Vol] 119 mg/dL High 70-99 [facility] Serum or plasma alanine gar otransferase (ALT) measurementOrdered By: Zainab Cherry on 10-16-2024 ALT [Catalytic activity/Vol] 8 U/L <35 [facility] Serum or plasma albumin shekhar urement (mass/volume)Ordered By: Zainab Cherry on 10-16-2024 Albumin [Mass/Vol] 3.6 g/dL 3.4-4.8 [facility] Serum or plasma albumin/glob ulin mass ratioOrdered By: Zainab Cherry on 10-16-2024 Albumin/Globulin [Mass ratio] 1.0 {ratio} 0.9-2.4 [facility] Serum or plasma alkaline savannah sphatase measurementOrdered By: Zainab Cherry on 10-16-2024 ALP [Catalytic activity/Vol] 101 U/L 35-104 [facility] Serum or plasma calcium shekhar urement (mass/volume)Ordered By: Zainab Cherry on 10-16-2024 Calcium [Mass/Vol] 9.0 mg/dL 7.6-11.0 [facility] Serum or plasma cholesterol in HDL measurement (mass/volume)Ordered By: Zainab Cherry on 10-16-2024 Cholesterol in HDL [Mass/Vol] 38 mg/dL Low >40 [facility] Comment on above: National Cholesterol Education Program (NCEP) guidelines:<40 mg/dL: Low HDL-cholesterol (major risk factor for CHD)>= 60 mg/dL: High HDL-cholesterol (negative risk factor for CHD)HDL-cholesterol is affected by a number of factors, e.g. smoking, exercise, hormones, sex and age. Serum or plasma cholesterol measurement (mass/volume)Ordered By: Zainab Cherry on 10-16-2024 Cholesterol [Mass/Vol] 179 mg/dL <201 [facility] Comment on above: Cholesterol level, D esirable <200 mg/dLBorderline high cholesterol 200-239 mg/dLHigh cholesterol >=240 mg/dLRecommendations of the NCEP Adult Treatment Panel for the following risk-cutoff thresholds for the [place] population. Serum or plasma urea nitroge n measurement (mass/volume)Ordered By: Zainab Cherry on 10-16-2024 Urea nitrogen [Mass/Vol] 18 mg/dL 4-19 [facility] Sodium levelOrdered By: Alexia Cherry on 10-16-2024 Sodium [Moles/Vol] 140 mmol/L 133-145 [facility] Total proteinOrdered By: Elliott Cherry on 10-16-2024 Protein [Mass/Vol] 7.1 g/dL 5.9-8.4 [facility] Triglycerides measurementOrd ered By: Zainab Cherry on 10-16-2024 Triglyceride [Mass/Vol] 214 mg/dL High <199 [facility] Comment on above: The drugs N-Acetylcy steine and Metamizole may falsely depress this assay. Normal range: <150 mg/dLBorderline High: 150-199 mg/dLHigh: 200-499 mg/dLVery High: >500 mg/dL White blood cell (WBC) count Ordered By: Zainab Cherry on 10-16-2024 WBC (Bld) [#/Vol] 6.3 10*3/uL 4.4-11.0 [facility] Cardiology Visit Reporton Cardiology Visit Report Normal [facility] Cardiovascular stress test r eportOrdered By: Keven Corey on 09-22-2024 Study report [facility] [address] [place] [address] MR#: [id number] Acct: [id number] Name: LIZ WADSWORTH Rep #: [id number] : 1950 74 From: Keven Corey MD Primary Care: Dr. Luis Cortés MD atus: REG CLI Referring Dr: Navneet Michel NP CONTACT AGENT-C Sex: F C Stress Test Report Pharmacologic myocardial perfusion stress test. 73-year-old lady with a history of shortness of breath Resting EKG demonstrates sinus rhythm with a rate of 74 bpm. Resting blood pressure is 164/70 mmHg. 0.4 mg of regadenoson was infused per usual protocol followed by rapid intravenous saline flush injection. Continuous EKG monitoringwas performed. The maximum heart rate was 94 bpm which was 64% of max impacted heart rate the maximum workload was 1 metabolic equivalent. At rest there were no ST or T wave changes noted to suggest ischemia and at peak infusion nonspecific ST changes were noted which did not meet the criteria for ischemia. No clinical angina is noted. The final blood pressure was 140/88 mmHg. Myocardial perfusion protocol. 14.5 mCi of technetium 99m sestamibi was injected at rest. 0.4 mg of regadenoson was infused per usual protocol. At peak infusion 44.7 mCi of technetium 99m sestamibi was injected stress images were obtained stress and rest images were reconstructed and compared in the short axis vertical long and horizontal long axis. Gated images were also obtained. Perfusion SPECT analysis: Review of the stress images demonstrate normal uptake of tracer noted in all areas of the myocardium. The resting images similar demonstrated normal uptake of tracer noted in all areas of the myocardium. No areas of reversibility are noted to suggest ischemia and no previous infarct is noted. Gated SPECT analysis: The gated ejection fraction is 72%. Conclusion: Normal pharmacologic myocardial perfusion stress test. Preserved ejection fraction. 09/22/24 1553 Date _ Keven Corey MD CC: CHARMAINE Michel; Dr. Luis oCrtés MD ~ Date Dictated: 09/22/24 1551 Date Transcribed: 09/22/241550 Development Specialist: [place] Signed [facility] Work Phone: Echo Complete W/ Contraston 09-22-2024 Echo Complete W/ Contrast Normal [facility] Echocardiogram study reportO rdered By: Keven Corey on 09-22-2024 Study report [facility] [address] [place] [address] Echo Complete W/ Contrast 09/22/24 1011 MR#: [id number] Acct: [id number] Name: LIZ WADSWORTH Rep #:[id number] : 1950 74 From: Keven Trimble Attending Dr: CHARMAINE Lehman Sta tus: REG CLI Ordering Dr: Navneet Michel NP Date: 09/22/24 Location: [facility] Sex: F C Admitted: Reason For Study Reason For Study: Chest pain Procedure This was a 2D Doppler, Color Flow transthoracic echocardiogram. The study was technically difficult. Exam performed portable in patient room. Left Ventricle Normal LV size. Mild concentric left ventricular hypertrophy. Left ventricular systolic function is normal. The left ventricular ejection fraction is 65 %. Stage 1 diastolic dysfunction. No regional wall motion abnormalities noted. Right Ventricle Normal RV size. Normal systolic function. Atria Normal left atrium. Normal right atrium. Mitral Valve Normal mitral valve. Tricuspid Valve Normal tricuspid valve. Aortic Valve The aortic valve is not well visualized. Pulmonic Valve The pulmonic valve is not well visualized. Great Vessels Normal aortic root. The pulmonary artery is normal size. Inferior vena cava collapse with respiration. Pericardium/Pleural No pericardial effusion. Medication Diluted definity 1.0ml given slow IV push to enhance endocardial definition. MMode/2D Measurements & Calculations LVIDd: 4.8 cm IVSd: 1.3 cm LVOT diam: 2.3 cm LVIDs: 3.0 cm LVPWd: 1.4 cm RVDd: 3.7 cm FS: 37.3 % LVOT area: 4.1 cm2 Ao root diam: 3.6 cm LAV(MOD-sp4): 48.8 ml LVAd ap4: 33.8 cm2 LVLd ap4: 8.2 cm EDV(MOD-sp4): 120.7 ml EDV(sp4-el): 118.5 ml LVAs ap4: 18.9 cm2 LVLs ap4: 6.9 cm ESV(MOD-sp4): 45.3 ml ESV(sp4-el): 43.8 ml EF(MOD-sp4): 62.5 % EF(sp4-el): 63.1 % SV(MOD-sp4): 75.4 ml SV(sp4-el): 74.8 ml LA A4 area: 19.0 cm2 SI(MOD-sp4): 31.4 ml/m2 RA A4 area: 19.1 cm2 TAPSE: 2.6 cm Time Measurements MV dec time: 0.28 sec Doppler Measurements & Calculations MV E max cecil: 61.5 cm/sec Lat Peak E' Cecil: 9.2 cm/sec Med Peak E' Cecil: 8.5 cm/sec MV A max cecil: 99.3 cm/sec E/E' lat: 6.7 E/E' med: 7.3 MV E/A: 0.62 MV dec slope: 221.5 cm/sec2 Ao V2 max: 194.8 cm/sec LV V1 max: 130.2 cm/sec Ao max P.2 mmHg LV V1 max P.8 mmHg Ao V2 mean: 130.7 cm/sec LV V1 mean P.3 mmHg Ao mean P.6 mmHg LV V1 mean: 84.5 cm/sec Ao V2 VTI: 40.9 cm LV V1 VTI: 26.4 cm AV (velocity ratio): 0.65 ARMOND(I,D): 2.6 cm2 ARMOND(V,D): 2.7 cm2 SV(LVOT): 107.4 ml PA V2 max: 99.8 cm/sec ECHO/Echo Complete W/ Contrast Interpretation Summary Normal LV size. Left ventricular systolic function is normal. The left ventricular ejection fraction is 65 %. Stage 1 diastolic dysfunction. Contrast injection was performed. ___ Ordering Physician: Navneet Michel Referring Physician: Luis Cortés Performed By: Kassandra Nieto RDCS 09/22/24 1215 Date _ Keven Corey MD CC: CONTACT AGENT-C Navneet Michel; Dr. Luis Cortés MD ~ Date Dictated: 09/22/24 1011 Date Transcribed: 09/22/24 1215 Development Specialist: Signed [facility] Work Phone: Stress Reporton 09-22-2024 Stress Report Normal [facility] Culture, Anaerobic Any Sourc dougie 09-05-2024 CUAN List Antibiotics Las t 48 Hours? Flagyl List Antibiotics to be Started? none No anaerobic bacteria isolated. Normal [facility] Comment on above: Performed By: #### M 100.3000, M100.4001, M100.2000 ####[facility] [address] [place], [address] Wound Cultureon 09-05-2024 WC Normal [facility] Comment on above: Performed By: #### M 100.3000, M100.4001, M1.1999 ####[facility] [address] [place], [address] Gram Stainon 09-02-2024 GS List Antibiotics Las t 48 Hours? Flagyl List Antibiotics to be Started? none Gram Stain No organisms seen No cells seen Normal [facility] Comment on above: Performed By: #### M 100.3000, M100.4001, M100.1999 ####[facility] [address] [place], [address] Anaerobic cultureOrdered By: Sneha Rosa on 09-01-2024 Bacteria identified Anaer cx Nom (Unsp spec) No anaerobic bacteria isolated. [facility] Bacteria identified Anaer cx Nom (Unsp spec)Ordered By: Sneha Rosa on 09-01-2024 Anaerobic Culture No anaerobic bacteri a isolated. [facility] Gram stainOrdered By: Sneha self on 09-01-2024 Microscopic observation Gram stain Nom (Unsp spec) [facility] Routine wound cultureOrdered By: Sneha Rosa on 09-01-2024 Microbial culture, routine Achromobacter denitrificans Abnormal [facility] Microbial culture, routine Staphylococcus epidermidis Abnormal [facility] Wound Culture Achromobacter denitrificans Abnormal [facility] Wound Culture Aerococcus viridans. Abnormal W [facility] Wound Culture Corynebacterium striatum Abnormal [facility] Wound Culture Staphylococcus epidermidis Abnormal [facility] Wound Culture Staphylococcus simulans Abnormal [facility] 12 Lead EKG performed by [facility] on 08-28-2024 12 Lead EKG performed by [facility] Normal [facility] Absolute lymphocyte countOrd ered By: Navneet Michel on 08-28-2024 Lymphocytes Auto (Unsp spec) [#/Vol] 1.25 10*3/uL 0.83-4.51 [facility] Absolute neutrophil countOrd ered By: Navneet Michel on 08-28-2024 Neutrophils (Bld) [#/Vol] 4.6 10*3/uL 2.0-7.7 [facility] Anion gap in Serum or Plasma Ordered By: Navneet Michel on 08-28-2024 Anion gap [Moles/Vol] 10 mmol/L 5-15 [facility] Automated lymphocyte count a s percentage of total leukocytesOrdered By: Navneet Marilu on 08-28-2024 Lymphocytes/100 WBC Auto (Unsp spec) 18.5 % Low 19-41 [facility] BUN/creatinine ratioOrdered By: Navneet Michel on 08-28-2024 Urea nitrogen/Creatinine [Mass ratio] 13.6 mg/mg 10-20 [facility] Basophil percentageOrdered B y: Navneet Michel on 08-28-2024 Basophils/100 WBC (Bld) 1.3 % High 0-1 [facility] Bilirubin, totalOrdered By: Navneet Michel on 08-28-2024 Bilirubin [Mass/Vol] 0.47 mg/dL 0.00-1.30 [facility] CBC W/Diff, Automatedon 08-19 Absolute Lymph 1.25 X10 3/uL Normal 0.83-4.51 [facility] Comment on above: Performed By: #### L 100.0100, L500.4050, L501.5200, L503.7505 ####[facility] [address] [place], [address] Absolute Neut 4.6 X10 3/uL Normal 2.0-7.7 [facility] Comment on above: Performed By: #### L 100.0100, L500.4050, L501.5200, L503.7505 ####[facility] [address] [place], [address] Basophils/100 WBC (Bld) 1.3 % High 0-1 [facility] Comment on above: Performed By: #### L 100.0100, L500.4050, L501.5200, L503.7505 ####[facility] [address] [place], [address] Eosinophils/100 WBC (Bld) 4.4 % Normal 0-5 [facility] Comment on above: Performed By: #### L 100.0100, L500.4050, L501.5200, L503.7505 ####[facility] [address] [place], [address] Erythrocyte distribution width (RBC) [Ratio] 15.1 % High 11.6-14.6 [facility] Comment on above: Performed By: #### L 100.0100, L500.4050, L501.5200, L503.7505 ####[facility] [address] [place], [address] Hematocrit (Bld) [Volume fraction] 42.8 % Normal 37-47 [facility] Comment on above: Performed By: #### L 100.0100, L500.4050, L501.5200, L503.7505 ####[facility] [address] [place], [address] Hemoglobin (Bld) [Mass/Vol] 13.2 g/dL Normal 12.0-15.0 [facility] Comment on above: Performed By: #### L 100.0100, L500.4050, L501.5200, L503.7505 ####[facility] [address] [place], [address] IG% 0.700 Normal 0.0-0.9 [facility] Comment on above: Result Comment: IG% - Immature Granulocytes (promyelocytes, myelocytes andmetamyelocytes) > 1% indicates that a LEFT SHIFT is Present. Performed By: #### L 100.0100, L500.4050, L501.5200, L503.7505 ####[facility] [address] [place], [address] Lymphocytes/100 WBC (Bld) 18.5 % Low 19-41 [facility] Comment on above: Performed By: #### L 100.0100, L500.4050, L501.5200, L503.7505 ####[facility] [address] [place], [address] MCH (RBC) [Entitic mass] 25.9 pg Low 27.0-32.0 [facility] Comment on above: Performed By: #### L 100.0100, L500.4050, L501.5200, L503.7505 ####[facility] [address] [place], [address] MCHC (RBC) [Mass/Vol] 30.8 g/dL Low 32-36 [facility] Comment on above: Performed By: #### L 100.0100, L500.4050, L501.5200, L503.7505 ####[facility] [address] [place], [address] MCV (RBC) [Entitic vol] 83.9 fL Normal 81-99 [facility] Comment on above: Performed By: #### L 100.0100, L500.4050, L501.5200, L503.7505 ####[facility] [address] [place], [address] Monocytes/100 WBC (Bld) 7.4 % Normal 0-10 [facility] Comment on above: Performed By: #### L 100.0100, L500.4050, L501.5200, L503.7505 ####[facility] [address] [place], [address] Neutrophils/100 WBC (Bld) 67.7 % Normal 47-70 [facility] Comment on above: Performed By: #### L 100.0100, L500.4050, L501.5200, L503.7505 ####[facility] [address] [place], [address] Nucleated RBC (Bld) [#/Vol] 0 10*3/uL Normal 0-5 [facility] Comment on above: Performed By: #### L 100.0100, L500.4050, L501.5200, L503.7505 ####[facility] [address] [place], [address] Platelet mean volume (Bld) [Entitic vol] 9.3 fL Normal 6.2-12.0 [facility] Comment on above: Performed By: #### L 100.0100, L500.4050, L501.5200, L503.7505 ####[facility] [address] [place], [address] Platelets (Bld) [#/Vol] 251 10*3/uL Normal 150-450 [facility] Comment on above: Performed By: #### L 100.0100, L500.4050, L501.5200, L503.7505 ####[facility] [address] [place], [address] RBC (Bld) [#/Vol] 5.10 10*6/uL Normal 4.2-5.4 [facility] Comment on above: Performed By: #### L 100.0100, L500.4050, L501.5200, L503.7505 ####[facility] [address] [place], [address] RDW SD 45.9 fl High 35.1-43.9 [facility] Comment on above: Performed By: #### L 100.0100, L500.4050, L501.5200, L503.7505 ####[facility] [address] [place], [address] WBC (Bld) [#/Vol] 6.8 10*3/uL Normal 4.4-11.0 [facility] Comment on above: Performed By: #### L 100.0100, L500.4050, L501.5200, L503.7505 ####[facility] [address] [place], [address] Carbon dioxide, total [Moles /volume] in Central venous bloodOrdered By: Navneet Michel on 08-28-2024 CO2 [Moles/Vol] 27.3 mmol/L 21.0-32.0 [facility] Cardiology Visit Reporton Cardiology Visit Report Normal [facility] Chloride assayOrdered By: Darshana Michel on 08-28-2024 Chloride [Moles/Vol] 103 mmol/L 98-108 [facility] Comprehensive Metabolic Prof ilon 08-28-2024 Albumin [Mass/Vol] 3.5 g/dL Normal 3.4-4.8 [facility] Comment on above: Performed By: #### L 100.0100, L500.4050, L501.5200, L503.7505 ####[facility] [address] [place], [address] Albumin/Globulin [Mass ratio] 1.2 {ratio} Normal 0.9-2.4 [facility] Comment on above: Performed By: #### L 100.0100, L500.4050, L501.5200, L503.7505 ####[facility] [address] [place], [address] ALK PHOS 107 U/L High 35-104 [facility] Comment on above: Performed By: #### L 100.0100, L500.4050, L501.5200, L503.7505 ####[facility] [address] [place], [address] ALT [Catalytic activity/Vol] 14 U/L Normal <=34 [facility] Comment on above: Performed By: #### L 100.0100, L500.4050, L501.5200, L503.7505 ####[facility] [address] [place], [address] AST [Catalytic activity/Vol] 22 U/L Normal <=31 [facility] Comment on above: Performed By: #### L 100.0100, L500.4050, L501.5200, L503.7505 ####[facility] [address] [place], [address] Bilirubin [Mass/Vol] 0.47 mg/dL Normal 0.00-1.30 [facility] Comment on above: Performed By: #### L 100.0100, L500.4050, L501.5200, L503.7505 ####[facility] [address] [place], [address] BUN/CRE 13.6 RATIO Normal 10-20 [facility] Comment on above: Performed By: #### L 100.0100, L500.4050, L501.5200, L503.7505 ####[facility] [address] [place], [address] Calcium [Mass/Vol] 9.1 mg/dL Normal 7.6-11.0 [facility] Comment on above: Performed By: #### L 100.0100, L500.4050, L501.5200, L503.7505 ####[facility] [address] [place], [address] Chloride [Moles/Vol] 103 mmol/L Normal 98-108 [facility] Comment on above: Performed By: #### L 100.0100, L500.4050, L501.5200, L503.7505 ####[facility] [address] [place], [address] CO2 [Moles/Vol] 27.3 mmol/L Normal 21.0-32.0 [facility] Comment on above: Performed By: #### L 100.0100, L500.4050, L501.5200, L503.7505 ####[facility] [address] [place], [address] Creatinine [Mass/Vol] 0.77 mg/dL Normal 0.70-1.20 [facility] Comment on above: Performed By: #### L 100.0100, L500.4050, L501.5200, L503.7505 ####[facility] [address] [place], [address] GAP 10 Normal 5-15 [facility] Comment on above: Performed By: #### L 100.0100, L500.4050, L501.5200, L503.7505 ####[facility] [address] [place], [address] GFR/1.73 sq M.predicted among non-blacks MDRD (S/P/Bld) [Vol rate/Area] 80 mL/min/{1.73_m2} Normal >60 [facility] Comment on above: Result Comment: mL/m in/1.73m2 CKD-EPI Creatinine Equation (2020) Performed By: #### L 100.0100, L500.4050, L501.5200, L503.7505 ####[facility] [address] [place], [address] Globulin (S) [Mass/Vol] 3.0 g/dL Normal 2.2-4.2 [facility] Comment on above: Performed By: #### L 100.0100, L500.4050, L501.5200, L503.7505 ####[facility] [address] [place], [address] Glucose [Mass/Vol] 143 mg/dL High 70-99 [facility] Comment on above: Performed By: #### L 100.0100, L500.4050, L501.5200, L503.7505 ####[facility] [address] [place], [address] Potassium [Moles/Vol] 3.7 mmol/L Normal 3.3-5.1 [facility] Comment on above: Performed By: #### L 100.0100, L500.4050, L501.5200, L503.7505 ####[facility] [address] [place], [address] Sodium [Moles/Vol] 141 mmol/L Normal 133-145 [facility] Comment on above: Performed By: #### L 100.0100, L500.4050, L501.5200, L503.7505 ####[facility] [address] [place], [address] T PROT 6.5 g/dL Normal 5.9-8.4 [facility] Comment on above: Performed By: #### L 100.0100, L500.4050, L501.5200, L503.7505 ####[facility] [address] [place], [address] Urea nitrogen [Mass/Vol] 11 mg/dL Normal 4-19 [facility] Comment on above: Performed By: #### L 100.0100, L500.4050, L501.5200, L503.7505 ####[facility] [address] [place], [address] Eosinophil percentageOrdered By: Navneet Michel on 08-28-2024 Eosinophils/100 WBC (Bld) 4.4 % 0-5 [facility] Erythrocyte distribution wid th ratioOrdered By: Navneet Michel on 08-28-2024 Erythrocyte distribution width (RBC) [Ratio] 15.1 % High 11.6-14.6 [facility] Erythrocyte distribution wid th standard deviationOrdered By: Navneet Michel on 08-28-2024 Erythrocyte distribution width (RBC) [Entitic vol] 45.9 fL High 35.1-43.9 [facility] Erythrocyte distribution width (RBC) [Ratio] 45.9 fl High 35.1-43.9 [facility] GFR/1.73 sq M.predicted flo g non-blacks MDRD (S/P/Bld) [Vol rate/Area]Ordered By: Navneet Michel on 08-28-2024 Estimated GFR (MDRD) Non-Af Amer 80 >60 [facility] Comment on above: mL/min/1.73m2 CKD-EP I Creatinine Equation (2020) Glomerular filtration rate ( GFR) estimation/1.73 sq m using serum, plasma, or whole bOrdered By: Navneet Michel on 08-28-2024 GFR/1.73 sq M.predicted among non-blacks MDRD (S/P/Bld) [Vol rate/Area] 80 mL/min/{1.73_m2} >60 [facility] Comment on above: mL/min/1.73m2 CKD-EP I Creatinine Equation (2020) Hematocrit Auto (Bld) [Volum e fraction]Ordered By: Navneet Michel on 08-28-2024 Hematocrit (Bld) [Volume fraction] 42.8 % 37-47 [facility] Hemoglobin measurementOrdere d By: Navneet Michel on 08-28-2024 Hemoglobin (Bld) [Mass/Vol] 13.2 g/dL 12.0-15.0 [facility] Immature granulocytes/100 WB C Auto (Bld)Ordered By: Navneet Michel on 08-28-2024 Immature granulocytes/100 WBC (Bld) 0.700 % 0.0-0.9 [facility] Comment on above: IG% - Immature Granu locytes (promyelocytes, myelocytes and metamyelocytes) > 1% indicates that a LEFT SHIFT is Present. L503.7505on 08-28-2024 Natriuretic peptide B (Bld) [Mass/Vol] 78 pg/mL Normal <=1800 [facility] Comment on above: Result Comment: Hear t Failure Unlikely: < 300 pg/mLHeart Failure Likely< 50 Years: > 450 pg/mL50-75 Years: > 900 pg/mL>75 Years: > 1800 pg/mL Performed By: #### L 100.0100, L500.4050, L501.5200, L503.7505 ####[facility] [address] [place], [address] Laboratory - Chemistry and C hemistry - challengeOrdered By: Navneet Michel on 08-28-2024 AST [Catalytic activity/Vol] 22 U/L <32 [facility] Natriuretic peptide B (Bld) [Mass/Vol] 78 pg/mL <1800 [facility] Comment on above: Heart Failure Unlike ly: < 300 pg/mLHeart Failure Likely< 50 Years: > 450 pg/mL50-75 Years: > 900 pg/mL>75 Years: > 1800 pg/mL Lymphocytes Auto (Unsp spec) [#/Vol]Ordered By: Navneet Michel on 08-28-2024 Lymphocytes (Bld) [#/Vol] 1.25 10*3/uL 0.83-4.51 [facility] Lymphocytes/100 WBC Auto (Un sp spec)Ordered By: Navneet Michel on 08-28-2024 Lymphocytes/100 WBC (Bld) 18.5 % Low 19-41 [facility] MCV (mean corpuscular volume ) determinationOrdered By: Navneet Michel on 08-28-2024 MCV (RBC) [Entitic vol] 83.9 fL 81-99 [facility] Magnesiumon 08-28-2024 Magnesium [Mass/Vol] 1.7 mg/dL Normal 1.5-2.2 [facility] Comment on above: Performed By: #### L 100.0100, L500.4050, L501.5200, L503.7505 ####[facility] [address], [id number] Magnesium (Unsp spec) [Mass/ Vol]Ordered By: Navneet Michel on 08-28-2024 Magnesium [Mass/Vol] 1.7 mg/dL 1.5-2.2 [facility] Magnesium measurement (mass/ volume)Ordered By: Navneet Michel on 08-28-2024 Magnesium (Unsp spec) [Mass/Vol] 1.7 mg/dL 1.5-2.2 [facility] Mean corpuscular hemoglobin (MCH) determinationOrdered By: Navneet Michel on 08-28-2024 MCH (RBC) [Entitic mass] 25.9 pg Low 27.0-32.0 [facility] Mean corpuscular hemoglobin concentration (MCHC) determinationOrdered By: Navneet Michel on 08-28-2024 MCHC (RBC) [Mass/Vol] 30.8 g/dL Low 32-36 [facility] Mean platelet volume determi nationOrdered By: Navneet Michel on 08-28-2024 Platelet mean volume (Bld) [Entitic vol] 9.3 fL 6.2-12.0 [facility] Monocyte percentageOrdered B y: Navneet Michel on 08-28-2024 Monocytes/100 WBC (Bld) 7.4 % 0-10 [facility] Neutrophil percentageOrdered By: Navneet Michel on 08-28-2024 Neutrophils/100 WBC (Bld) 67.7 % 47-70 [facility] No Panel InformationOrdered By: Navneet Michel on 08-28-2024 22 U/L <32 [facility] 78 pg/mL <1800 [facility] Nucleated red blood cell per centageOrdered By: Navneet Michel on 08-28-2024 Nucleated RBC/100 WBC (Bld) [Ratio] 0 % 0-5 [facility] Platelet countOrdered By: Darshana Michel on 08-28-2024 Platelets (Bld) [#/Vol] 251 10*3/uL 150-450 [facility] Potassium (Unsp spec) [Mass/ Vol]Ordered By: Navneet Michel on 08-28-2024 Potassium [Moles/Vol] 3.7 mmol/L 3.3-5.1 [facility] Potassium measurement (mass/ volume)Ordered By: Navneet Michel on 08-28-2024 Potassium (Unsp spec) [Mass/Vol] 3.7 mmol/L 3.3-5.1 [facility] RBC Auto (Bld) [#/Vol]Ordere d By: Navneet Michel on 08-28-2024 RBC (Bld) [#/Vol] 5.10 10*6/uL 4.2-5.4 [facility] Serum creatinine measurement (mass/volume)Ordered By: Navneet Michel on 08-28-2024 Creatinine [Mass/Vol] 0.77 mg/dL 0.70-1.20 [facility] Serum globulin measurementOr dered By: Navneet Michel on 08-28-2024 Globulin (S) [Mass/Vol] 3.0 g/dL 2.2-4.2 [facility] Serum glucose measurement (m ass/volume)Ordered By: Navneet Michel on 08-28-2024 Glucose [Mass/Vol] 143 mg/dL High 70-99 [facility] Serum or plasma alanine gar otransferase (ALT) measurementOrdered By: Navneet Michel on 08-28-2024 ALT [Catalytic activity/Vol] 14 U/L <35 [facility] Serum or plasma albumin shekhar urement (mass/volume)Ordered By: Navneet Michel on 08-28-2024 Albumin [Mass/Vol] 3.5 g/dL 3.4-4.8 [facility] Serum or plasma albumin/glob ulin mass ratioOrdered By: Navneet Michel on 08-28-2024 Albumin/Globulin [Mass ratio] 1.2 {ratio} 0.9-2.4 [facility] Serum or plasma alkaline [place] sphatase measurementOrdered By: Navneet Michel on 08-28-2024 ALP [Catalytic activity/Vol] 107 U/L High 35-104 [facility] Serum or plasma calcium shekhar urement (mass/volume)Ordered By: Navneet Michel on 08-28-2024 Calcium [Mass/Vol] 9.1 mg/dL 7.6-11.0 [facility] Serum or plasma urea nitroge n measurement (mass/volume)Ordered By: Navneet Michel on 08-28-2024 Urea nitrogen [Mass/Vol] 11 mg/dL 4-19 [facility] Sodium levelOrdered By: Navneet Michel on 08-28-2024 Sodium [Moles/Vol] 141 mmol/L 133-145 [facility] Total proteinOrdered By: Herberth Michel on 08-28-2024 Protein [Mass/Vol] 6.5 g/dL 5.9-8.4 [facility] White blood cell (WBC) count Ordered By: Navneet Michel on 08-28-2024 WBC (Bld) [#/Vol] 6.8 10*3/uL 4.4-11.0 [facility] Culture, Anaerobic Any Sourc dougie 08-09-2024 CUAN Normal [facility] Comment on above: Performed By: #### M 100.3000, M1.400, ####[facility] [address] [place], [address] Wound Cultureon 08-07-2024 WC Normal [facility] Comment on above: Performed By: #### M 100.3000, M100.4001, ####[facility] [address] [place], [address] Gram Stainon 08-06-2024 GS List Antibiotics Las t 48 Hours? none List Antibiotics to be Started? none Gram Stain No organisms seen No cells seen Normal [facility] Comment on above: Performed By: #### M 100.3000, M100.4001, ####[facility] [address] [place], [address] Anaerobic cultureOrdered By: Sneha Rosa on 08-04-2024 Bacteria identified Anaer cx Nom (Unsp spec) Anaerobic cocci Abnormal [facility] Bacteria identified Anaer cx Nom (Unsp spec)Ordered By: Sneha Rosa on 08-04-2024 Anaerobic Culture Anaerobic cocci Abnormal [facility] Gram stainOrdered By: Sneha self on 08-04-2024 Microscopic observation Gram stain Nom (Unsp spec) [facility] Routine wound cultureOrdered By: Sneha Rosa on 08-04-2024 Wound Culture Pseudomonas aeruginosa Abnormal [facility] Wound Culture Enterococcus faecalis Abnormal [facility] MR/BMS.BVSon 08-02-2024 MR/BMS.BVS Normal [facility] Venous Duplex US, Unilateral on 07-31-2024 Venous Duplex US, Unilateral Normal [facility] Operative Reporton Operative Report Normal [facility] Culture, Anaerobic Any Sourc dougie 06-14-2024 CUAN List Antibiotics Las t 48 Hours? none List Antibiotics to be Started? none No anaerobic bacteria isolated. Normal [facility] Comment on above: Performed By: #### M 100.1999, M100.3000, M100.4001 ####[facility] [id number] [place], [address] Gram Stainon 06-12-2024 GS List Antibiotics Las t 48 Hours? none List Antibiotics to be Started? none Gram Stain 2+ Red Blood Cells 1+ Gram positive cocci Normal [facility] Comment on above: Performed By: #### M 100.1999, M100.3000, M100.4001 ####[facility] [id number] [place], [place], [id number] Wound Cultureon 06-11-2024 Normal [facility] Comment on above: Performed By: #### M 100.1999, M100.3000, M100.4001 ####[facility] [address] [place], [address] Bacteria identified Anaer cx Nom (Unsp spec)Ordered By: Sneha Rosa on 06-09-2024 Anaerobic Culture No anaerobic bacteri a isolated. [facility] Gram stainOrdered By: Sneha self on 06-09-2024 Microscopic observation Gram stain Nom (Unsp spec) [facility] Routine wound cultureOrdered By: Sneha Rosa on 06-09-2024 Wound Culture Pseudomonas aeruginosa Abnormal [facility] Wound Culture Meth. resistant Stap h. aureus Abnormal [facility] Internal Medicine Office Vis iton 06-08-2024 Internal Medicine Office Visit Normal [facility] Laboratory - Hematology and Cell countson 06-08-2024 HbA1c (Bld) [Mass fraction] 6.4 % High 4.2-6.3 [facility] Culture, Anaerobic Any Sourc dougie 05-09-2024 CUAN List Antibiotics Las t 48 Hours? none List Antibiotics to be Started? none left allen No anaerobic bacteria isolated. Normal [facility] Comment on above: Performed By: #### M 100.1999, M100.4001, M100.3000 ####[facility] [address] [place], [address] Venous Duplex US, Unilateral on 05-09-2024 Venous Duplex US, Unilateral Normal [facility] Wound Cultureon 05-08-2024 WC Normal [facility] Comment on above: Performed By: #### M 100.1999, M100.4001, M100.3000 ####[facility] [address] [place], [address] Bacteria identified Anaer cx Nom (Unsp spec)Ordered By: Sneha Rosa on 05-05-2024 Anaerobic Culture No anaerobic bacteri a isolated. [facility] Gram Stainon 05-05-2024 GS List Antibiotics Las t 48 Hours? none List Antibiotics to be Started? none left allen Gram Stain No organisms seen No cells seen Normal [facility] Comment on above: Performed By: #### M 100.2000, M100.4001, M100.3000 ####[facility] [address] [place], [address] Gram stainOrdered By: Sneha self on 05-05-2024 Microscopic observation Gram stain Nom (Unsp spec) [facility] Routine wound cultureOrdered By: Sneha Rosa on 05-05-2024 Wound Culture Meth. resistant Stap h. aureus Abnormal [facility] Wound Culture Streptococcus group C Abnormal [facility] Activated partial thrombopla stin time (aPTT) in platelet poor plasma by coagulation aOrdered By: Jon Rubio on 04-06-2024 aPTT Coag (PPP) [Time] 31.5 s 24.1-36.2 [facility] International normalized rat io (INR) calculationOrdered By: Jon Rubio on 04-06-2024 INR Coag (Bld) [Relative time] 1.2 {INR} [facility] Prothrombin timeOrdered By: Jon Rbuio on 04-06-2024 PT Coag (PPP) [Time] 15.6 s High 11.7-14.9 [facility] Absolute lymphocyte countOrd ered By: Darrion Simons on 09-24-2023 Lymphocytes Auto (Unsp spec) [#/Vol] 1.91 10*3/uL 0.83-4.51 [facility] Automated lymphocyte count a s percentage of total leukocytesOrdered By: Darrion Simons on 09-24-2023 Lymphocytes/100 WBC Auto (Unsp spec) 23.4 % 19-41 [facility] Basophil percentageOrdered B y: Darrion Simons on 09-24-2023 Basophils/100 WBC (Bld) 0.7 % 0-1 [facility] Chloride [Moles/Vol] 106 mmol/L 98-107 [facility] Eosinophils/100 WBC (Bld) 2.4 % 0-5 [facility] Glucose [Mass/Vol] 125 mg/dL 74-106 [facility] Comment on above: Fasting Glucose resu lt from 100 to 125 mg/dL suggests IMPAIRED HOMEOSTASIS per A.D.A. criteria. Hemoglobin (Bld) [Mass/Vol] 15.1 g/dL 12.0-15.0 [facility] Monocytes/100 WBC (Bld) 7.3 % 0-10 [facility] Neutrophils (Bld) [#/Vol] 5.3 10*3/uL 2.0-7.7 [facility] Neutrophils/100 WBC (Bld) 65.5 % 47-70 [facility] Potassium [Moles/Vol] 4.2 mmol/L 3.5-5.1 [facility] Comment on above: Moderate Hemolysis, Result may be falsely increased. Sodium [Moles/Vol] 141 mmol/L 136-145 [facility] WBC (Bld) [#/Vol] 8.2 10*3/uL 4.4-11.0 [facility] Determination of erythrocyte mean corpuscular volume (MCV)Ordered By: Darrion Simons on 09-24-2023 MCV (RBC) [Entitic vol] 82.7 fL 81-99 [facility] Erythrocyte distribution wid th ratioOrdered By: Darrion Simons on 09-24-2023 Erythrocyte distribution width (RBC) [Ratio] 15.5 % 11.6-14.6 [facility] Erythrocyte distribution wid th standard deviationOrdered By: Darrion Simons on 09-24-2023 Erythrocyte distribution width (RBC) [Entitic vol] 46.5 fL 35.1-43.9 [facility] HIV 1 and HIV-2 antibody ass ay with HIV-1 p24 antigen detectionOrdered By: Darrion Simons on 09-24-2023 HIV 1+2 Ab+HIV1 p24 Ag IA Ql Non-Reactive Nonreactive [facility] Hematocrit Auto (Bld) [Volum e fraction]Ordered By: Darrion Simons on 09-24-2023 Hematocrit (Bld) [Volume fraction] 48.6 % 37-47 [facility] Immature granulocytes/100 WB C Auto (Bld)Ordered By: Darrion Simons on 09-24-2023 Immature granulocytes/100 WBC (Bld) 0.700 % 0.0-0.9 [facility] Comment on above: IG% - Immature Granu locytes (promyelocytes, myelocytes and metamyelocytes) > 1% indicates that a LEFT SHIFT is Present. Laboratory - Chemistry and C hemistry - challengeOrdered By: Darrion Simons on 09-24-2023 CO2 [Moles/Vol] 31.0 mmol/L 21.0-32.0 [facility] Natriuretic peptide B (Bld) [Mass/Vol] 33.6 pg/mL 0-100 [facility] Urea nitrogen/Creatinine [Mass ratio] 14.1 mg/mg 10-20 [facility] Laboratory - Hematology and Cell countsOrdered By: Darrion Simons on 09-24-2023 MCH (RBC) [Entitic mass] 25.7 pg 27.0-32.0 [facility] MCHC (RBC) [Mass/Vol] 31.1 g/dL 32-36 [facility] Nucleated RBC/100 WBC (Bld) [Ratio] 0 % 0-5 [facility] Platelet mean volume (Bld) [Entitic vol] 9.8 fL 6.2-12.0 [facility] Platelets (Bld) [#/Vol] 253 10*3/uL 150-450 [facility] No Panel InformationOrdered By: Darrion Simons on 09-24-2023 D-Dimer Quantitative (PE/DVT) 1.20 FEU/ug/m 0.27-0.49 [facility] Comment on above: D-Dimer ELEVATED (>0 .49): Additional studies and clinicalassessments are indicated to conclude diagnosis of:Deep Vein Thrombosis (DVT) or Pulmonary Embolism (PE)CRITICAL VALUE VERIFIED. CALLED TO Ellen Lambert09/24/23 [id number] Ирина Quiros.RESULTS READ BACK BY same . Estimated Creatinine Clearance Calc 72.14 ml/min [facility] Estimated GFR (MDRD) Amer 70 mL/min >60 [facility] Comment on above: GFR Calc Estimated GFR (MDRD) Non-Af Amer 58 mL/min >60 [facility] Comment on above: Non- GFR Calc Hepatitis B Surface Antigen Non-Reactive Nonreactive [facility] Hepatitis C Antibody Non-Reactive Nonreactive [facility] Comment on above: Non Reactive: < 0.8 Equivocal: >/= 0.8 to < 1.0 Reactive: >/= 1.0The CDC requires that a reactive/equivocal HCV antibody result be sent out for confirmation. HCV Quant by PCR testing. RBC Auto (Bld) [#/Vol]Ordere d By: Darrion Simons on 09-24-2023 RBC (Bld) [#/Vol] 5.88 10*6/uL 4.2-5.4 [facility] Serum hepatitis B virus core antibody detectionOrdered By: Darrion Simons on 09-24-2023 HBV core Ab Ql (S) Negative Negative [facility] Comment on above: Performed at: [place] [id number] Director: Henri Cole PhD, Phone: [phone] Serum hepatitis B virus surf katelynn antibody IgG detectionOrdered By: Darrion Simons on 09-24-2023 HBV surface IgG Ql (S) Non-Reactive [facility] Comment on above: Non Reactive: Incons istent with immunity less than <10 mIU/mL Reactive: Consistent with immunity greater than or equal to 10 mIU/mL Serum or plasma calcium shekhar urement (mass/volume)Ordered By: Darrion Simons on 09-24-2023 Calcium [Mass/Vol] 9.6 mg/dL 8.5-10.1 [facility] Serum or plasma cardiac trop onin I panel by high sensitivity methodOrdered By: Darrion Simons on 09-24-2023 Tropinin I.cardiac panel High sensitivity method 8 pg/mL 3.0-54.0 [facility] Comment on above: Please Note: New Saritha t Units and Gender Specific Reference Ranges. For more information see Policy Stat Procedure [place] High Sensitivity Troponin (TNIH) and attachments. Serum or plasma creatinine m easurement (mass/volume)Ordered By: Darrion Simons on 09-24-2023 Creatinine [Mass/Vol] 0.99 mg/dL 0.55-1.02 [facility] Comment on above: The validity of the calculated GFR & GFRAA in patients over 70 years has not been determined. Clinical correlation is essential. Serum or plasma urea nitroge n measurement (mass/volume)Ordered By: Darrion Simons on 09-24-2023 Urea nitrogen [Mass/Vol] 14 mg/dL 7-18 [facility] Thin prep Papanicolaou smear with manual screeningOrdered By: Darrion Simons on 09-24-2023 Thin prep Papanicolaou smear with manual screening 4 5-15 [facility] Absolute lymphocyte countOrd ered By: Jon Ramiro on 09-13-2023 Lymphocytes Auto (Unsp spec) [#/Vol] 1.86 10*3/uL 0.83-4.51 [facility] Activated partial thrombopla stin time (aPTT) in platelet poor plasma by coagulation aOrdered By: Jon Rubio on 09-13-2023 aPTT Coag (PPP) [Time] 32.2 s 24.1-36.2 [facility] Automated lymphocyte count a s percentage of total leukocytesOrdered By: Jon Rubio on 09-13-2023 Lymphocytes/100 WBC Auto (Unsp spec) 30.8 % 19-41 [facility] Basophil percentageOrdered B y: Jon Rubio on 09-13-2023 Basophils/100 WBC (Bld) 1.2 % 0-1 [facility] Bilirubin [Mass/Vol] 0.50 mg/dL 0.20-1.00 [facility] Comment on above: For patients on eltr ombopag therapy, use of Dimension [place] TBIL is not recommended. Chloride [Moles/Vol] 105 mmol/L 98-107 [facility] Eosinophils/100 WBC (Bld) 4.1 % 0-5 [facility] Glucose [Mass/Vol] 132 mg/dL 74-106 [facility] Comment on above: Fasting Glucose resu lt greater than or equal to 126 mg/dL suggests DIABETES MELLITUS per A.D.A. criteria. Hemoglobin (Bld) [Mass/Vol] 13.8 g/dL 12.0-15.0 [facility] LDH [Catalytic activity/Vol] 181 U/L 84-246 [facility] Monocytes/100 WBC (Bld) 9.0 % 0-10 [facility] Neutrophils (Bld) [#/Vol] 3.3 10*3/uL 2.0-7.7 [facility] Neutrophils/100 WBC (Bld) 54.6 % 47-70 [facility] Potassium [Moles/Vol] 3.9 mmol/L 3.5-5.1 [facility] Protein [Mass/Vol] 7.3 g/dL 6.4-8.2 [facility] Sodium [Moles/Vol] 141 mmol/L 136-145 [facility] WBC (Bld) [#/Vol] 6.0 10*3/uL 4.4-11.0 [facility] Determination of erythrocyte mean corpuscular volume (MCV)Ordered By: Jon Rubio on 09-13-2023 MCV (RBC) [Entitic vol] 83.6 fL 81-99 [facility] Erythrocyte distribution wid th ratioOrdered By: Jon Rubio on 09-13-2023 Erythrocyte distribution width (RBC) [Ratio] 15.9 % 11.6-14.6 [facility] Erythrocyte distribution wid th standard deviationOrdered By: [place] Ramiro on 09-13-2023 Erythrocyte distribution width (RBC) [Entitic vol] 48.5 fL 35.1-43.9 [facility] Hematocrit Auto (Bld) [Volum e fraction]Ordered By: Jon Ramiro on 09-13-2023 Hematocrit (Bld) [Volume fraction] 45.4 % 37-47 [facility] Immature granulocytes/100 WB C Auto (Bld)Ordered By: Jon Rubio on 09-13-2023 Immature granulocytes/100 WBC (Bld) 0.300 % 0.0-0.9 [facility] Comment on above: IG% - Immature Granu locytes (promyelocytes, myelocytes and metamyelocytes) > 1% indicates that a LEFT SHIFT is Present. Laboratory - Chemistry and C hemistry - challengeOrdered By: Jon Rubio on 09-13-2023 Albumin/Globulin [Mass ratio] 0.9 {ratio} 0.9-2.4 [facility] ALP [Catalytic activity/Vol] 96 U/L 45-117 [facility] ALT [Catalytic activity/Vol] 23 U/L 13-56 [facility] CO2 [Moles/Vol] 33.0 mmol/L 21.0-32.0 [facility] Globulin (S) [Mass/Vol] 3.9 g/dL 2.2-4.2 [facility] Urea nitrogen/Creatinine [Mass ratio] 12.4 mg/mg 10-20 [facility] Laboratory - CoagulationOrde red By: Jon Rubio on 09-13-2023 INR Coag (Bld) [Relative time] 1.2 {INR} [facility] PT Coag (PPP) [Time] 14.8 s 11.7-14.9 [facility] Laboratory - Hematology and Cell countsOrdered By: Jon Rubio on 09-13-2023 MCH (RBC) [Entitic mass] 25.4 pg 27.0-32.0 [facility] MCHC (RBC) [Mass/Vol] 30.4 g/dL 32-36 [facility] Nucleated RBC/100 WBC (Bld) [Ratio] 0 % 0-5 [facility] Platelet mean volume (Bld) [Entitic vol] 9.2 fL 6.2-12.0 [facility] Platelets (Bld) [#/Vol] 222 10*3/uL 150-450 [facility] No Panel InformationOrdered By: Jon Rubio on 09-13-2023 D-Dimer Quantitative (PE/DVT) 0.97 FEU/ug/m 0.27-0.49 [facility] Comment on above: D-Dimer ELEVATED (>0 .49): Additional studies and clinicalassessments are indicated to conclude diagnosis of:Deep Vein Thrombosis (DVT) or Pulmonary Embolism (PE)CRITICAL VALUE VERIFIED. CALLED TO AMY MENDIOLA (ONC)09/13/23 0829 Nando Balderas.RESULTS READ BACK BY SAME. Estimated Creatinine Clearance Calc 74.73 ml/min [facility] Estimated GFR (MDRD) Amer 73 mL/min >60 [facility] Comment on above: GFR Calc Estimated GFR (MDRD) Non-Af Amer 60 mL/min >60 [facility] Comment on above: Non- GFR Calc RBC Auto (Bld) [#/Vol]Ordere d By: Jon Rubio on 09-13-2023 RBC (Bld) [#/Vol] 5.43 10*6/uL 4.2-5.4 [facility] Serum or plasma calcium shekhar urement (mass/volume)Ordered By: Jon Rubio on 09-13-2023 Calcium [Mass/Vol] 9.1 mg/dL 8.5-10.1 [facility] Serum or plasma creatinine m easurement (mass/volume)Ordered By: Jon Rubio on 09-13-2023 Creatinine [Mass/Vol] 0.96 mg/dL 0.55-1.02 [facility] Comment on above: The validity of the calculated GFR & GFRAA in patients over 70 years has not been determined. Clinical correlation is essential. Serum or plasma urea nitroge n measurement (mass/volume)Ordered By: Jon Rubio on 09-13-2023 Urea nitrogen [Mass/Vol] 12 mg/dL 7-18 [facility] Thin prep Papanicolaou smear with manual screeningOrdered By: Jon Rubio on 09-13-2023 Thin prep Papanicolaou smear with manual screening 3.4 g/dL 3.2-5.0 [facility] Thin prep Papanicolaou smear with manual screening 22 U/L 15-37 [facility] Thin prep Papanicolaou smear with manual screening 3 5-15 [facility] No Panel InformationOrdered By: Sneha Rosa on 07-23-2023 Free Triiodothyronine (T3) pg/dL 2.2 pg/mL 2.18-3.98 [facility] Serum or plasma thyroid stim ulating hormone (TSH) measurement (units/volume)Ordered By: Sneha Rosa on 07-23-2023 TSH Qn 2.99 uIU/mL 0.358-3.74 [facility] Serum or plasma transthyreti n measurement (mass/volume)Ordered By: Sneha Rosa on 07-23-2023 Prealbumin [Mass/Vol] 17.8 mg/dL 20.0-40.0 [facility] Thin prep Papanicolaou smear with manual screeningOrdered By: Sneha Rosa on 07-23-2023 Thin prep Papanicolaou smear with manual screening 1.28 ng/dL 0.76-1.46 [facility] Absolute lymphocyte countOrd ered By: Yair Law on 06-20-2023 Lymphocytes Auto (Unsp spec) [#/Vol] 1.73 10*3/uL 0.83-4.51 [facility] Basophil percentageOrdered B y: Yair Law on 06-20-2023 Basophils/100 WBC (Bld) 0.7 % 0-1 [facility] Bilirubin [Mass/Vol] 0.70 mg/dL 0.20-1.00 [facility] Comment on above: For patients on eltr ombopag therapy, use of Dimension [place] TBIL is not recommended. Chloride [Moles/Vol] 106 mmol/L 98-107 [facility] Eosinophils/100 WBC (Bld) 2.5 % 0-5 [facility] Glucose [Mass/Vol] 140 mg/dL 74-106 [facility] Comment on above: Fasting Glucose resu lt greater than or equal to 126 mg/dL suggests DIABETES MELLITUS per A.D.A. criteria. Neutrophils (Bld) [#/Vol] 5.6 10*3/uL 2.0-7.7 [facility] Neutrophils/100 WBC (Bld) 67.8 % 47-70 [facility] Potassium [Moles/Vol] 4.0 mmol/L 3.5-5.1 [facility] Comment on above: Moderate Hemolysis, Result may be falsely increased. Protein [Mass/Vol] 7.1 g/dL 6.4-8.2 [facility] Sodium [Moles/Vol] 140 mmol/L 136-145 [facility] WBC (Bld) [#/Vol] 8.3 10*3/uL 4.4-11.0 [facility] Blood erythrocytes count (nu mber/volume)Ordered By: Yair Law on 06-20-2023 RBC (Bld) [#/Vol] 5.35 10*6/uL 4.2-5.4 [facility] Blood hemoglobin measurement (mass/volume)Ordered By: Yair Law on 06-20-2023 Hemoglobin (Bld) [Mass/Vol] 13.5 g/dL 12.0-15.0 [facility] Blood lymphocytes/100 leukoc ytesOrdered By: Yair Law on 06-20-2023 Lymphocytes/100 WBC (Bld) 20.9 % 19-41 [facility] Blood monocytes/100 leukocyt esOrdered By: Yair Law on 06-20-2023 Monocytes/100 WBC (Bld) 7.5 % 0-10 [facility] Blood platelet mean volumeOr dered By: Yair Law on 06-20-2023 Platelet mean volume (Bld) [Entitic vol] 9.7 fL 6.2-12.0 [facility] Determination of erythrocyte mean corpuscular volume (MCV)Ordered By: Yair Law on 06-20-2023 MCV (RBC) [Entitic vol] 83.4 fL 81-99 [facility] Direct bilirubinOrdered By: Yair Law on 06-20-2023 Bilirubin.direct [Mass/Vol] 0.05 mg/dL 0.00-0.30 [facility] Hematocrit Auto (Bld) [Volum e fraction]Ordered By: Yair Law on 06-20-2023 Hematocrit (Bld) [Volume fraction] 44.6 % 37-47 [facility] Laboratory - Chemistry and C hemistry - challengeOrdered By: Yair Law on 06-20-2023 ALP [Catalytic activity/Vol] 106 U/L 45-117 [facility] ALT [Catalytic activity/Vol] 14 U/L 13-56 [facility] CO2 [Moles/Vol] 29.0 mmol/L 21.0-32.0 [facility] Globulin (S) [Mass/Vol] 4.1 g/dL 2.2-4.2 [facility] Natriuretic peptide B (Bld) [Mass/Vol] 45.1 pg/mL 0-100 [facility] Urea nitrogen/Creatinine [Mass ratio] 11.5 mg/mg 10-20 [facility] Laboratory - Hematology and Cell countsOrdered By: Yair Law on 06-20-2023 Erythrocyte distribution width (RBC) [Entitic vol] 43.8 fL 35.1-43.9 [facility] Erythrocyte distribution width (RBC) [Ratio] 14.4 % 11.6-14.6 [facility] Immature granulocytes/100 WBC (Bld) 0.600 % 0.0-0.9 [facility] Comment on above: IG% - Immature Granu locytes (promyelocytes, myelocytes and metamyelocytes) > 1% indicates that a LEFT SHIFT is Present. MCH (RBC) [Entitic mass] 25.2 pg 27.0-32.0 [facility] Nucleated RBC/100 WBC (Bld) [Ratio] 0 % 0-5 [facility] Laboratory - Microbiology an d Antimicrobial susceptibilityOrdered By: Yair Law on 06-20-2023 Bacteria identified Cx Nom (Bld) No growth in 5 days. [facility] Bacteria identified Cx Nom (Bld) No growth in 5 days. [facility] MCHC Auto (RBC) [Mass/Vol]Or dered By: Yair Law on 06-20-2023 MCHC (RBC) [Mass/Vol] 30.3 g/dL 32-36 [facility] No Panel InformationOrdered By: Yair Law on 06-20-2023 Estimated Creatinine Clearance Calc 40.89 ml/min [facility] Estimated GFR (MDRD) Amer 61 mL/min >60 [facility] Comment on above: GFR Calc Estimated GFR (MDRD) Non-Af Amer 50 mL/min >60 [facility] Comment on above: Non- GFR Calc Troponin I High Sensitivity 7 pg/mL 3.0-54.0 [facility] Comment on above: Please Note: New Saritha t Units and Gender Specific Reference Ranges. For more information see Policy Stat Procedure [place] High Sensitivity Troponin (TNIH) and attachments. Platelets bldOrdered By: Mango Law on 06-20-2023 Platelets (Bld) [#/Vol] 257 10*3/uL 150-450 [facility] Serum or plasma albumin shekhar urement (mass/volume)Ordered By: Yair Law on 06-20-2023 Albumin [Mass/Vol] 3.0 g/dL 3.2-5.0 [facility] Serum or plasma calcium shekhar urement (mass/volume)Ordered By: Yair Law on 06-20-2023 Calcium [Mass/Vol] 9.4 mg/dL 8.5-10.1 [facility] Serum or plasma creatinine m easurement (mass/volume)Ordered By: Yair Law on 06-20-2023 Creatinine [Mass/Vol] 1.13 mg/dL 0.55-1.02 [facility] Comment on above: The validity of the calculated GFR & GFRAA in patients over 70 years has not been determined. Clinical correlation is essential. Serum or plasma urea nitroge n measurement (mass/volume)Ordered By: Yair Law on 06-20-2023 Urea nitrogen [Mass/Vol] 13 mg/dL 7-18 [facility] Thin prep Papanicolaou smear with manual screeningOrdered By: Yair Law on 06-20-2023 Thin prep Papanicolaou smear with manual screening 21 U/L 15-37 [facility] Comment on above: Moderate Hemolysis, Result may be falsely increased. Thin prep Papanicolaou smear with manual screening 5 5-15 [facility] Absolute lymphocyte countOrd ered By: Jon Rubio on 05-24-2023 Lymphocytes Auto (Unsp spec) [#/Vol] 1.54 10*3/uL 0.83-4.51 [facility] Basophil percentageOrdered B y: Jon Rubio on 05-24-2023 Basophils/100 WBC (Bld) 0.9 % 0-1 [facility] Bilirubin [Mass/Vol] 0.40 mg/dL 0.20-1.00 [facility] Comment on above: For patients on eltr ombopag therapy, use of Dimension [place] TBIL is not recommended. Chloride [Moles/Vol] 106 mmol/L 98-107 [facility] Eosinophils/100 WBC (Bld) 3.0 % 0-5 [facility] Glucose [Mass/Vol] 135 mg/dL 74-106 [facility] Comment on above: Fasting Glucose resu lt greater than or equal to 126 mg/dL suggests DIABETES MELLITUS per A.D.A. criteria. LDH [Catalytic activity/Vol] 172 U/L 84-246 [facility] Neutrophils (Bld) [#/Vol] 5.4 10*3/uL 2.0-7.7 [facility] Neutrophils/100 WBC (Bld) 70.1 % 47-70 [facility] Potassium [Moles/Vol] 3.7 mmol/L 3.5-5.1 [facility] Protein [Mass/Vol] 7.1 g/dL 6.4-8.2 [facility] Sodium [Moles/Vol] 141 mmol/L 136-145 [facility] WBC (Bld) [#/Vol] 7.7 10*3/uL 4.4-11.0 [facility] Blood erythrocytes count (nu mber/volume)Ordered By: Jon Rubio on 05-24-2023 RBC (Bld) [#/Vol] 5.17 10*6/uL 4.2-5.4 [facility] Blood hemoglobin measurement (mass/volume)Ordered By: Jon Rubio on 05-24-2023 Hemoglobin (Bld) [Mass/Vol] 13.8 g/dL 12.0-15.0 [facility] Blood lymphocytes/100 leukoc ytesOrdered By: Jon Rubio on 05-24-2023 Lymphocytes/100 WBC (Bld) 20.1 % 19-41 [facility] Blood monocytes/100 leukocyt esOrdered By: Jon Rubio on 05-24-2023 Monocytes/100 WBC (Bld) 5.6 % 0-10 [facility] Blood platelet mean volumeOr dered By: Jon Rubio on 05-24-2023 Platelet mean volume (Bld) [Entitic vol] 9.3 fL 6.2-12.0 [facility] Determination of erythrocyte mean corpuscular volume (MCV)Ordered By: Jon Rubio on 05-24-2023 MCV (RBC) [Entitic vol] 84.9 fL 81-99 [facility] Hematocrit Auto (Bld) [Volum e fraction]Ordered By: Jon Rubio on 05-24-2023 Hematocrit (Bld) [Volume fraction] 43.9 % 37-47 [facility] Laboratory - Chemistry and C hemistry - challengeOrdered By: Jon Rubio on 05-24-2023 ALP [Catalytic activity/Vol] 104 U/L 45-117 [facility] ALT [Catalytic activity/Vol] 13 U/L 13-56 [facility] CO2 [Moles/Vol] 29.0 mmol/L 21.0-32.0 [facility] Globulin (S) [Mass/Vol] 4.0 g/dL 2.2-4.2 [facility] Urea nitrogen/Creatinine [Mass ratio] 14.9 mg/mg 10-20 [facility] - Hematology and Cell countsOrdered By: Jon Rubio on 05-24-2023 Erythrocyte distribution width (RBC) [Entitic vol] 43.8 fL 35.1-43.9 [facility] Erythrocyte distribution width (RBC) [Ratio] 14.2 % 11.6-14.6 [facility] Immature granulocytes/100 WBC (Bld) 0.300 % 0.0-0.9 [facility] Comment on above: IG% - Immature Granu locytes (promyelocytes, myelocytes and metamyelocytes) > 1% indicates that a LEFT SHIFT is Present. MCH (RBC) [Entitic mass] 26.7 pg 27.0-32.0 [facility] Nucleated RBC/100 WBC (Bld) [Ratio] 0 % 0-5 [facility] MCHC Auto (RBC) [Mass/Vol]Or dered By: Jno Rubio on 05-24-2023 MCHC (RBC) [Mass/Vol] 31.4 g/dL 32-36 [facility] No Panel InformationOrdered By: Jon Rubio on 05-24-2023 Estimated GFR (MDRD) Amer 69 mL/min >60 [facility] Comment on above: GFR Calc Estimated GFR (MDRD) Non-Af Amer 57 mL/min >60 [facility] Comment on above: Non- GFR Calc Miscellaneous Test See comment [facility] Comment on above: TEST RESULTS LIMITST hrombotic Risk Profile IHomocyst(e)ine 12.1 umol/L 0.0-19.2Plasminogen 148 % 70-150Antithrombin Activity 98 % 75-135Direct Xa inhibitor anticoagulants such as rivaroxaban, apixaban and edoxaban will lead to spuriously elevated antithrombin activity levels possibly masking a deficiency.Protein C-Functional 124 % 73-180Protein S, Free 89 % 61-136Act.Prt.C Resist. 2.8 ratio 2.2-3.5The APCR result may be falsely increased (masking an abnormal, low APCR result) in patients on direct Xa inhibitor (e.g., rivaroxaban, apixaban, edoxaban) or a direct thrombin inhibitor (e.g., dabigatran) anticoagulant therapy due to assay interference by these drugs.Lupus Anticoagulant Reflex PTT-LA 50.4 High sec 0.0-43.5PTT-LA Mix 45.8 High sec 0.0-40.5Hexagonal PhasePhospholipid 2 sec 0-11dRVVT 55.0 High sec 0.0-47.0dRVVT Mix 45.3 High sec 0.0-40.4dRVVT Confirm 1.2 ratio 0.8-1.2Lupus Reflex Interpretation Comment:No lupus anticoagulant was detected. Mixing studies suggest the presence of an inhibitor. It should be noted that mixing studies performed on samples with minimally extended aPTT results can be equivocal. Normal plasma can overcome weak inhibitors, also resulting in a correction of the mixingstudy. The pattern observed could be caused by a specific factor inhibitor, dabigatran (a direct thrombin inhibitor anticoagulant), or a direct Xa inhibitor anticoagulant therapy such as rivaroxaban, apixaban or edoxaban. As antibody titers may fluctuate with time, repeat testing may be indicated and ideally should be performed in the absence of anticoagulanttherapy.Dilute Prothrombin Time(dPT) 44.0 sec 0.0-47.6dPT Confirm Ratio 1.20 Ratio 0.00-1.34Anticardiolipin Ab,IgG,Qn <9 GPL U/mL 0-14 Negative: <15 Indeterminate: 15 - 20 Low-Med Positive: >20 - 80 High Positive: >80Anticardiolipin Ab,IgM,Qn 17 High MPL U/mL 0-12 Negative: <13 Indeterminate: 13 - 20 Low-Med Positive: >20 - 80 High Positive: >80Beta-2 Glycoprotein I Ab, IgG <9 GPI IgG units 0-20Please Note: The reference interval reflects a 3SD or 99th percentile interval, which is thought to represent a potentially clinically significant result in accordance with the International Consensus Statement on the classification criteria for definitive antiphospholipid syndrome(APS). J Thromb Haem 2006;4:295-306.Beta-2 Glycoprotein I Ab, IgM <9 GPI IgM units 0-32Please Note: The reference interval reflects a 3SD or 99th percentile interval, which is thought to represent a potentially clinically significant result in accordance with the International Consensus Statement on the classification criteria for definitive antiphospholipid syndrome(APS). J Thromb Haem 2006;4:295-306.Factor II, DNA Analysis Result: c.*97G>A - Not DetectedThis result is not associated with an increased risk for venousthromboembolism. See Additional Clinical Information andComments.Additional Information: Additional Clinical Information:Venous thromboembolism is a multifactorial disease influenced by genetic, environmental, and circumstantial risk factors. The c.*97G>A variant in the F2 gene is a genetic risk factor for venous thromboembolism. Heterozygous carriers have a 2- to 4-fold increased risk for venous thromboembolism. Homozygotes for the c.*97G>A variant are rare. The annual risk of VTE in homozygotes has been reported to be 1.1%/year. Individuals who carry both a c.*97G>A variant in the F2 gene and a c.1601G>A (p. [id number]) variant in the F5 gene (commonly referred to as Factor V Leiden) have an approximately 20-fold increased risk for venous thromboembolism. Risks are likely to be even higher in more complex genotype combinations involving theF2 c.*97G>A variant and Factor V Leiden (PMID: [id number]). Additional risk factors include but are not limited to: deficiency of protein C, protein S, or antithrombin III, age, male sex, personal or family history of deep vein thromboembolism, smoking, surgery, prolonged immobilization, malignant neoplasm, tamoxifen treatment, raloxifenetreatment, oral contraceptive use, hormone replacement therapy, and . Management of thrombotic risk and thrombotic events should follow established guidelines and fit the clinical circumstance. This result cannot predict the occurrence or recurrence of a thrombotic event.Comments:Genetic counseling is recommended to discuss the potential clinical implications of positive results, as well as recommendations for testing family members.Genetic Coordinators are available for health care providers to discuss results at [phone] Details:Variant analyzed: c.*97G>A, previously referred to as [id number]/Limitations: DNA analysis of the F2 gene ([id number]) was performed by PCRamplification followed by restriction enzyme analysis. The diagnostic sensitivity is >99%. Results must be combined with clinical information for the most accurate interpretation. Molecular-based testing is highly accurate, but as in any laboratory test, diagnostic errors may occur. False positive or false negative resu (more content not included)... Platelets bldOrdered By: Fredy Rubio on 05-24-2023 Platelets (Bld) [#/Vol] 289 10*3/uL 150-450 [facility] Serum or plasma albumin shekhar urement (mass/volume)Ordered By: Jon Rubio on 05-24-2023 Albumin [Mass/Vol] 3.1 g/dL 3.2-5.0 [facility] Serum or plasma albumin/glob ulin mass ratioOrdered By: Jon Rubio on 05-24-2023 Albumin/Globulin [Mass ratio] 0.8 {ratio} 0.9-2.4 [facility] Serum or plasma calcium shekhar urement (mass/volume)Ordered By: Jon Rubio on 05-24-2023 Calcium [Mass/Vol] 8.9 mg/dL 8.5-10.1 [facility] Serum or plasma creatinine m easurement (mass/volume)Ordered By: Jon Rubio on 05-24-2023 Creatinine [Mass/Vol] 1.01 mg/dL 0.55-1.02 [facility] Comment on above: The validity of the calculated GFR & GFRAA in patients over 70 years has not been determined. Clinical correlation is essential. Serum or plasma urea nitroge n measurement (mass/volume)Ordered By: Jon Rubio on 05-24-2023 Urea nitrogen [Mass/Vol] 15 mg/dL 7-18 [facility] Thin prep Papanicolaou smear with manual screeningOrdered By: Jon Rubio on 05-24-2023 Thin prep Papanicolaou smear with manual screening 14 U/L 15-37 [facility] Thin prep Papanicolaou smear with manual screening 6 5-15 [facility] Laboratory - Chemistry and C hemistry - challengeOrdered By: Zainab Cherry on 03-29-2023 Natriuretic peptide B (Bld) [Mass/Vol] 65.8 pg/mL 0-100 [facility] Absolute lymphocyte countOrd ered By: Jon Rubio on 03-25-2023 Lymphocytes Auto (Unsp spec) [#/Vol] 1.88 10*3/uL 0.83-4.51 [facility] Basophil percentageOrdered B y: Jon Rubio on 03-25-2023 Basophils/100 WBC (Bld) 0.8 % 0-1 [facility] Bilirubin [Mass/Vol] 0.60 mg/dL 0.20-1.00 [facility] Comment on above: For patients on eltr ombopag therapy, use of Dimension [place] TBIL is not recommended. Chloride [Moles/Vol] 104 mmol/L 98-107 [facility] Eosinophils/100 WBC (Bld) 3.2 % 0-5 [facility] Glucose [Mass/Vol] 143 mg/dL 74-106 [facility] Comment on above: Fasting Glucose resu lt greater than or equal to 126 mg/dL suggests DIABETES MELLITUS per A.D.A. criteria. LDH [Catalytic activity/Vol] 175 U/L 84-246 [facility] Neutrophils (Bld) [#/Vol] 4.5 10*3/uL 2.0-7.7 [facility] Neutrophils/100 WBC (Bld) 62.4 % 47-70 [facility] Potassium [Moles/Vol] 4.2 mmol/L 3.5-5.1 [facility] Protein [Mass/Vol] 7.4 g/dL 6.4-8.2 [facility] Sodium [Moles/Vol] 139 mmol/L 136-145 [facility] WBC (Bld) [#/Vol] 7.2 10*3/uL 4.4-11.0 [facility] Blood erythrocytes count (nu mber/volume)Ordered By: Jon Rubio on 03-25-2023 RBC (Bld) [#/Vol] 5.45 10*6/uL 4.2-5.4 [facility] Blood hemoglobin measurement (mass/volume)Ordered By: Jon Rubio on 03-25-2023 Hemoglobin (Bld) [Mass/Vol] 14.5 g/dL 12.0-15.0 [facility] Blood lymphocytes/100 leukoc ytesOrdered By: Jon Rubio on 03-25-2023 Lymphocytes/100 WBC (Bld) 26.1 % 19-41 [facility] Blood monocytes/100 leukocyt esOrdered By: Jon Rubio on 03-25-2023 Monocytes/100 WBC (Bld) 6.9 % 0-10 [facility] Blood platelet mean volumeOr dered By: Jon Rubio on 03-25-2023 Platelet mean volume (Bld) [Entitic vol] 9.0 fL 6.2-12.0 [facility] Determination of erythrocyte mean corpuscular volume (MCV)Ordered By: Jon Doan on 03-25-2023 MCV (RBC) [Entitic vol] 86.1 fL 81-99 [facility] Hematocrit Auto (Bld) [Volum e fraction]Ordered By: [facility] on 03-25-2023 Hematocrit (Bld) [Volume fraction] 46.9 % 37-47 [facility] - Chemistry and C hemistry - challengeOrdered By: [facility] on 03-25-2023 ALP [Catalytic activity/Vol] 110 U/L 45-117 [facility] ALT [Catalytic activity/Vol] 17 U/L 13-56 [facility] CO2 [Moles/Vol] 32.0 mmol/L 21.0-32.0 [facility] Globulin (S) [Mass/Vol] 4.1 g/dL 2.2-4.2 [facility] Urea nitrogen/Creatinine [Mass ratio] 16.1 mg/mg 10-20 [facility] - Hematology and Cell countsOrdered By: [facility] on 03-25-2023 Erythrocyte distribution width (RBC) [Entitic vol] 48.1 fL 35.1-43.9 [facility] Erythrocyte distribution width (RBC) [Ratio] 15.2 % 11.6-14.6 [facility] Immature granulocytes/100 WBC (Bld) 0.600 % 0.0-0.9 [facility] Comment on above: IG% - Immature Granu locytes (promyelocytes, myelocytes and metamyelocytes) > 1% indicates that a LEFT SHIFT is Present. MCH (RBC) [Entitic mass] 26.6 pg 27.0-32.0 [facility] Nucleated RBC/100 WBC (Bld) [Ratio] 0 % 0-5 [facility] MCHC Auto (RBC) [Mass/Vol]Or dered By: [facility] on 03-25-2023 MCHC (RBC) [Mass/Vol] 30.9 g/dL 32-36 [facility] No Panel InformationOrdered By: [facility] on 03-25-2023 D-Dimer Quantitative (PE/DVT) 0.46 FEU/ug/m 0.27-0.49 [facility] Comment on above: NORMAL D-Dimer level (<0.50) indicates no DVT or PE. Estimated Creatinine Clearance Calc 46.67 ml/min [facility] Estimated GFR (MDRD) Amer 70 mL/min >60 [facility] Comment on above: GFR Calc Estimated GFR (MDRD) Non-Af Amer 58 mL/min >60 [facility] Comment on above: Non- GFR Calc Platelets bldOrdered By: Fredy Rubio on 03-25-2023 Platelets (Bld) [#/Vol] 235 10*3/uL 150-450 [facility] Serum or plasma albumin shekhar urement (mass/volume)Ordered By: Jon Rubio on 03-25-2023 Albumin [Mass/Vol] 3.3 g/dL 3.2-5.0 [facility] Serum or plasma albumin/glob ulin mass ratioOrdered By: Jon Rubio on 03-25-2023 Albumin/Globulin [Mass ratio] 0.8 {ratio} 0.9-2.4 [facility] Serum or plasma calcium shekhar urement (mass/volume)Ordered By: Jon Rubio on 03-25-2023 Calcium [Mass/Vol] 9.5 mg/dL 8.5-10.1 [facility] Serum or plasma creatinine m easurement (mass/volume)Ordered By: Jon Rbuio on 03-25-2023 Creatinine [Mass/Vol] 0.99 mg/dL 0.55-1.02 [facility] Comment on above: The validity of the calculated GFR & GFRAA in patients over 70 years has not been determined. Clinical correlation is essential. Serum or plasma urea nitroge n measurement (mass/volume)Ordered By: Jon Rubio on 03-25-2023 Urea nitrogen [Mass/Vol] 16 mg/dL 7-18 [facility] Thin prep Papanicolaou smear with manual screeningOrdered By: Jon Rubio on 03-25-2023 Thin prep Papanicolaou smear with manual screening 14 U/L 15-37 [facility] Thin prep Papanicolaou smear with manual screening 3 5-15 [facility] Basophil percentageOrdered B y: Luis Cortés on 02-11-2023 Bilirubin [Mass/Vol] 0.60 mg/dL 0.20-1.00 [facility] Comment on above: For patients on eltr ombopag therapy, use of Dimension [place] TBIL is not recommended. Chloride [Moles/Vol] 105 mmol/L 98-107 [facility] Cholesterol [Mass/Vol] 176 mg/dL <200 [facility] Comment on above: <200 mg/dL Desirable 200-240 mg/dL Borderline >240 mg/dL High Risk Glucose [Mass/Vol] 119 mg/dL 74-106 [facility] Comment on above: Fasting Glucose resu lt from 100 to 125 mg/dL suggests IMPAIRED HOMEOSTASIS per A.D.A. criteria. Potassium [Moles/Vol] 4.1 mmol/L 3.5-5.1 [facility] Protein [Mass/Vol] 7.0 g/dL 6.4-8.2 [facility] Sodium [Moles/Vol] 142 mmol/L 136-145 [facility] Triglyceride [Mass/Vol] 257 mg/dL <199 [facility] Comment on above: The drugs N-Acetylcy steine and Metamizole may falsely depress this assay.Serum Triglycerides Reference Interval Normal <150 mg/dL Borderline high 150 - 199 mg/dL High 200 - 499 mg/dL Very High > or = 500 mg/dL Laboratory - Chemistry and C hemistry - challengeOrdered By: Luis Cortés on 02-11-2023 ALP [Catalytic activity/Vol] 102 U/L 45-117 [facility] ALT [Catalytic activity/Vol] 19 U/L 13-56 [facility] CO2 [Moles/Vol] 31.0 mmol/L 21.0-32.0 [facility] Globulin (S) [Mass/Vol] 3.6 g/dL 2.2-4.2 [facility] Urea nitrogen/Creatinine [Mass ratio] 15.7 mg/mg 10-20 [facility] - Hematology and Cell countson 02-11-2023 HbA1c (Bld) [Mass fraction] 6.4 % 4.2-6.3 [facility] No Panel InformationOrdered By: Luis Cortés on 02-11-2023 Estimated GFR (MDRD) Amer 73 mL/min >60 [facility] Comment on above: GFR Calc Estimated GFR (MDRD) Non-Af Amer 61 mL/min >60 [facility] Comment on above: Non- GFR Calc Thyroid Stimulating Hormone (TSH) 1.43 uIU/mL 0.358-3.74 [facility] Serum or plasma albumin shekhar urement (mass/volume)Ordered By: Luis Cortés on 02-11-2023 Albumin [Mass/Vol] 3.4 g/dL 3.2-5.0 [facility] Serum or plasma albumin/glob ulin mass ratioOrdered By: Luis Cortés on 02-11-2023 Albumin/Globulin [Mass ratio] 0.9 {ratio} 0.9-2.4 [facility] Serum or plasma calcium shekhar urement (mass/volume)Ordered By: Luis Cortés on 02-11-2023 Calcium [Mass/Vol] 9.3 mg/dL 8.5-10.1 [facility] Serum or plasma cholesterol in HDL measurement (mass/volume)Ordered By: Luis Cortés on 02-11-2023 Cholesterol in HDL [Mass/Vol] 37 mg/dL >40 [facility] Comment on above: The drugs N-Acetylcy steine and Metamizole may falsely depress this assay. Reference Range HDL <40 mg/dL Low HDL Cholesterol HDL >or= 60 mg/dL High HDL Cholesterol Serum or plasma cholesterol in VLDL measurement (mass/volume)Ordered By: Luis Cortés on 02-11-2023 Cholesterol in VLDL [Mass/Vol] 51 mg/dL 5-40 [facility] Serum or plasma creatinine m easurement (mass/volume)Ordered By: Luis Cortés on 02-11-2023 Creatinine [Mass/Vol] 0.96 mg/dL 0.55-1.02 [facility] Comment on above: The validity of the calculated GFR & GFRAA in patients over 70 years has not been determined. Clinical correlation is essential. Serum or plasma low density lipoprotein (LDL) cholesterol measurement (mass/volume)Ordered By: Luis Cortés on 02-11-2023 Cholesterol in LDL [Mass/Vol] 88 mg/dL 0-130 [facility] Serum or plasma urea nitroge n measurement (mass/volume)Ordered By: Luis Cortés on 02-11-2023 Urea nitrogen [Mass/Vol] 15 mg/dL 7-18 [facility] Thin prep Papanicolaou smear with manual screeningOrdered By: Luis Cortés on 02-11-2023 Thin prep Papanicolaou smear with manual screening 17 U/L 15-37 [facility] Thin prep Papanicolaou smear with manual screening 6 5-15 [facility] Absolute lymphocyte countOrd ered By: Jon Rubio on 12-24-2022 Lymphocytes Auto (Unsp spec) [#/Vol] 1.87 10*3/uL 0.83-4.51 [facility] Basophil percentageOrdered B y: Jon Rubio on 12-24-2022 Basophils/100 WBC (Bld) 1.0 % 0-1 [facility] Bilirubin [Mass/Vol] 0.40 mg/dL 0.20-1.00 [facility] Comment on above: For patients on eltr ombopag therapy, use of Dimension [place] TBIL is not recommended. Chloride [Moles/Vol] 103 mmol/L 98-107 [facility] Eosinophils/100 WBC (Bld) 4.1 % 0-5 [facility] Glucose [Mass/Vol] 144 mg/dL 74-106 [facility] Comment on above: Fasting Glucose resu lt greater than or equal to 126 mg/dL suggests DIABETES MELLITUS per A.D.A. criteria. LDH [Catalytic activity/Vol] 192 U/L 84-246 [facility] Neutrophils (Bld) [#/Vol] 4.3 10*3/uL 2.0-7.7 [facility] Neutrophils/100 WBC (Bld) 60.2 % 47-70 [facility] Potassium [Moles/Vol] 3.9 mmol/L 3.5-5.1 [facility] Protein [Mass/Vol] 7.6 g/dL 6.4-8.2 [facility] Sodium [Moles/Vol] 138 mmol/L 136-145 [facility] WBC (Bld) [#/Vol] 7.1 10*3/uL 4.4-11.0 [facility] Blood erythrocytes count (nu mber/volume)Ordered By: Jon Rubio on 12-24-2022 RBC (Bld) [#/Vol] 5.49 10*6/uL 4.2-5.4 [facility] Blood hemoglobin measurement (mass/volume)Ordered By: Jon Rubio on 12-24-2022 Hemoglobin (Bld) [Mass/Vol] 14.5 g/dL 12.0-15.0 [facility] Blood lymphocytes/100 leukoc ytesOrdered By: Jon Rubio on 12-24-2022 Lymphocytes/100 WBC (Bld) 26.4 % 19-41 [facility] Blood monocytes/100 leukocyt esOrdered By: Jon Rubio on 12-24-2022 Monocytes/100 WBC (Bld) 7.9 % 0-10 [facility] Blood platelet mean volumeOr dered By: Jon Rubio on 12-24-2022 Platelet mean volume (Bld) [Entitic vol] 9.3 fL 6.2-12.0 [facility] Determination of erythrocyte mean corpuscular volume (MCV)Ordered By: Jon Rubio on 12-24-2022 MCV (RBC) [Entitic vol] 83.4 fL 81-99 [facility] Hematocrit Auto (Bld) [Volum e fraction]Ordered By: Jon Rubio on 12-24-2022 Hematocrit (Bld) [Volume fraction] 45.8 % 37-47 [facility] - Chemistry and C hemistry - challengeOrdered By: Jon Rubio on 12-24-2022 ALP [Catalytic activity/Vol] 128 U/L 45-117 [facility] ALT [Catalytic activity/Vol] 23 U/L 13-56 [facility] CO2 [Moles/Vol] 28.0 mmol/L 21.0-32.0 [facility] Globulin (S) [Mass/Vol] 4.3 g/dL 2.2-4.2 [facility] Urea nitrogen/Creatinine [Mass ratio] 13.8 mg/mg 10-20 [facility] - Hematology and Cell countsOrdered By: Jon Rubio on 12-24-2022 Erythrocyte distribution width (RBC) [Entitic vol] 44.7 fL 35.1-43.9 [facility] Erythrocyte distribution width (RBC) [Ratio] 14.6 % 11.6-14.6 [facility] Immature granulocytes/100 WBC (Bld) 0.400 % 0.0-0.9 [facility] Comment on above: IG% - Immature Granu locytes (promyelocytes, myelocytes and metamyelocytes) > 1% indicates that a LEFT SHIFT is Present. MCH (RBC) [Entitic mass] 26.4 pg 27.0-32.0 [facility] Nucleated RBC/100 WBC (Bld) [Ratio] 0 % 0-5 [facility] MCHC Auto (RBC) [Mass/Vol]Or dered By: Jon Rubio on 12-24-2022 MCHC (RBC) [Mass/Vol] 31.7 g/dL 32-36 [facility] No Panel InformationOrdered By: Jon Rubio on 12-24-2022 D-Dimer Quantitative (PE/DVT) 0.48 FEU/ug/m 0.27-0.49 [facility] Comment on above: NORMAL D-Dimer level (<0.50) indicates no DVT or PE. Estimated GFR (MDRD) Amer 63 mL/min >60 [facility] Comment on above: GFR Calc Estimated GFR (MDRD) Non-Af Amer 52 mL/min >60 [facility] Comment on above: Non- GFR Calc Platelets bldOrdered By: Fredy Rubio on 12-24-2022 Platelets (Bld) [#/Vol] 237 10*3/uL 150-450 [facility] Serum or plasma albumin shekhar urement (mass/volume)Ordered By: Jon Rubio on 12-24-2022 Albumin [Mass/Vol] 3.3 g/dL 3.2-5.0 [facility] Serum or plasma albumin/glob ulin mass ratioOrdered By: Jon Rubio on 12-24-2022 Albumin/Globulin [Mass ratio] 0.8 {ratio} 0.9-2.4 [facility] Serum or plasma calcium shekhar urement (mass/volume)Ordered By: Jon Rubio on 12-24-2022 Calcium [Mass/Vol] 9.0 mg/dL 8.5-10.1 [facility] Serum or plasma creatinine m easurement (mass/volume)Ordered By: Jon Rubio on 12-24-2022 Creatinine [Mass/Vol] 1.09 mg/dL 0.55-1.02 [facility] Comment on above: The validity of the calculated GFR & GFRAA in patients over 70 years has not been determined. Clinical correlation is essential. Serum or plasma urea nitroge n measurement (mass/volume)Ordered By: Jon Rubio on 12-24-2022 Urea nitrogen [Mass/Vol] 15 mg/dL 7-18 [facility] Thin prep Papanicolaou smear with manual screeningOrdered By: Jon Rubio on 12-24-2022 Thin prep Papanicolaou smear with manual screening 20 U/L 15-37 [facility] Thin prep Papanicolaou smear with manual screening 7 5-15 [facility] Laboratory - Hematology and Cell countson 11-02-2022 HbA1c (Bld) [Mass fraction] 6.7 % 4.2-6.3 [facility] Absolute lymphocyte countOrd ered By: Dr. Rubio on 09-24-2022 Lymphocytes Auto (Unsp spec) [#/Vol] 2.01 10*3/uL 0.83-4.51 [facility] Basophil percentageOrdered B y: Dr. Rubio on 09-24-2022 Basophils/100 WBC (Bld) 1.4 % 0-1 [facility] Bilirubin [Mass/Vol] 0.60 mg/dL 0.20-1.00 [facility] Comment on above: For patients on eltr ombopag therapy, use of Dimension [place] TBIL is not recommended. Chloride [Moles/Vol] 105 mmol/L 98-107 [facility] Eosinophils/100 WBC (Bld) 3.6 % 0-5 [facility] Glucose [Mass/Vol] 149 mg/dL 74-106 [facility] Comment on above: Fasting Glucose resu lt greater than or equal to 126 mg/dL suggests DIABETES MELLITUS per A.D.A. criteria. Neutrophils (Bld) [#/Vol] 4.9 10*3/uL 2.0-7.7 [facility] Neutrophils/100 WBC (Bld) 61.7 % 47-70 [facility] Potassium [Moles/Vol] 3.9 mmol/L 3.5-5.1 [facility] Protein [Mass/Vol] 7.4 g/dL 6.4-8.2 [facility] Sodium [Moles/Vol] 138 mmol/L 136-145 [facility] WBC (Bld) [#/Vol] 8.0 10*3/uL 4.4-11.0 [facility] Blood erythrocytes count (nu mber/volume)Ordered By: Dr. Rubio on 09-24-2022 RBC (Bld) [#/Vol] 5.79 10*6/uL 4.2-5.4 [facility] Blood hemoglobin measurement (mass/volume)Ordered By: Dr. Rubio on 09-24-2022 Hemoglobin (Bld) [Mass/Vol] 15.3 g/dL 12.0-15.0 [facility] Blood lymphocytes/100 leukoc ytesOrdered By: Dr. Rubio on 09-24-2022 Lymphocytes/100 WBC (Bld) 25.2 % 19-41 [facility] Blood monocytes/100 leukocyt esOrdered By: Dr. Rubio on 09-24-2022 Monocytes/100 WBC (Bld) 7.2 % 0-10 [facility] Blood platelet mean volumeOr dered By: Dr. Rubio on 09-24-2022 Platelet mean volume (Bld) [Entitic vol] 9.4 fL 6.2-12.0 [facility] Determination of erythrocyte mean corpuscular volume (MCV)Ordered By: Dr. Rubio on 09-24-2022 MCV (RBC) [Entitic vol] 84.8 fL 81-99 [facility] Hematocrit Auto (Bld) [Volum e fraction]Ordered By: Dr. Rubio on 09-24-2022 Hematocrit (Bld) [Volume fraction] 49.1 % 37-47 [facility] INR in Blood by Coagulation assayOrdered By: Dr. Rubio on 09-24-2022 INR Coag (Bld) [Relative time] 1.4 {INR} [facility] Laboratory - Chemistry and C hemistry - challengeOrdered By: Dr. Rubio on 09-24-2022 ALP [Catalytic activity/Vol] 103 U/L 45-117 [facility] ALT [Catalytic activity/Vol] 22 U/L 13-56 [facility] CO2 [Moles/Vol] 28.0 mmol/L 21.0-32.0 [facility] Globulin (S) [Mass/Vol] 4.1 g/dL 2.2-4.2 [facility] Urea nitrogen/Creatinine [Mass ratio] 14.4 mg/mg 10-20 [facility] Laboratory - CoagulationOrde red By: Dr. Rubio on 09-24-2022 aPTT Coag (Bld) [Time] 36.9 s 24.1-36.2 [facility] PT Coag (PPP) [Time] 16.7 s 11.7-14.9 [facility] Laboratory - Hematology and Cell countsOrdered By: Dr. Rubio on 09-24-2022 Erythrocyte distribution width (RBC) [Entitic vol] 43.1 fL 35.1-43.9 [facility] Erythrocyte distribution width (RBC) [Ratio] 14.1 % 11.6-14.6 [facility] Immature granulocytes/100 WBC (Bld) 0.900 % 0.0-0.9 [facility] Comment on above: IG% - Immature Granu locytes (promyelocytes, myelocytes and metamyelocytes) > 1% indicates that a LEFT SHIFT is Present. MCH (RBC) [Entitic mass] 26.4 pg 27.0-32.0 [facility] Nucleated RBC/100 WBC (Bld) [Ratio] 0 % 0-5 [facility] MCHC Auto (RBC) [Mass/Vol]Or dered By: Dr. Rubio on 09-24-2022 MCHC (RBC) [Mass/Vol] 31.2 g/dL 32-36 [facility] No Panel InformationOrdered By: Dr. Rubio on 09-24-2022 D-Dimer Quantitative (PE/DVT) 0.91 FEU/ug/m 0.27-0.49 [facility] Comment on above: D-Dimer ELEVATED (>0 .49): Additional studies and clinicalassessments are indicated to conclude diagnosis of:Deep Vein Thrombosis (DVT) or Pulmonary Embolism (PE)CRITICAL VALUE VERIFIED. CALLED TO ADRIAN ZAVALA09/24/22 1307 Ирина Quiros.RESULTS READ BACK BY SAME . Estimated GFR (MDRD) Amer 72 mL/min >60 [facility] Comment on above: GFR Calc Estimated GFR (MDRD) Non-Af Amer 59 mL/min >60 [facility] Comment on above: Non- GFR Calc Platelets bldOrdered By: Dr. Rubio on 09-24-2022 Platelets (Bld) [#/Vol] 230 10*3/uL 150-450 [facility] Serum or plasma albumin shekhar urement (mass/volume)Ordered By: Dr. Rubio on 09-24-2022 Albumin [Mass/Vol] 3.3 g/dL 3.2-5.0 [facility] Serum or plasma albumin/glob ulin mass ratioOrdered By: Dr. Rubio on 09-24-2022 Albumin/Globulin [Mass ratio] 0.8 {ratio} 0.9-2.4 [facility] Serum or plasma calcium shekhar urement (mass/volume)Ordered By: Dr. Rubio on 09-24-2022 Calcium [Mass/Vol] 9.3 mg/dL 8.5-10.1 [facility] Serum or plasma creatinine m easurement (mass/volume)Ordered By: Dr. Rubio on 09-24-2022 Creatinine [Mass/Vol] 0.97 mg/dL 0.55-1.02 [facility] Comment on above: The validity of the calculated GFR & GFRAA in patients over 70 years has not been determined. Clinical correlation is essential. Serum or plasma urea nitroge n measurement (mass/volume)Ordered By: Dr. Rubio on 09-24-2022 Urea nitrogen [Mass/Vol] 14 mg/dL 7-18 [facility] Thin prep Papanicolaou smear with manual screeningOrdered By: Dr. Rubio on 09-24-2022 Thin prep Papanicolaou smear with manual screening 19 U/L 15-37 [facility] Thin prep Papanicolaou smear with manual screening 5 5-15 [facility] Anaerobic cultureOrdered By: Molly Tripp on 08-25-2022 Bacteria identified Anaer cx Nom (Unsp spec) No anaerobic bacteria isolated. [facility] Bacteria identified Cx Nom ( Wound)Ordered By: Molly Tripp on 08-25-2022 Wound Culture Serratia marcescens [facility] Wound Culture Meth. resistant Stap h. aureus [facility] Gram stain for investigation of transfusion reactionOrdered By: Molly Tripp on 08-21-2022 Microscopic observation Gram stain Nom (Unsp spec) [facility] Helicobacter pylori breath t est in pediatric patientOrdered By: Dr. Kasper on 07-28-2022 CO2 post dose urea Ql (Exhl gas) Positive Negative [facility] Comment on above: Performed at: [address] [id number] Director: Henri Cole PhD, Phone: [phone] INR in Blood by Coagulation assayOrdered By: Dr. Rubio on 07-23-2022 INR Coag (Bld) [Relative time] 1.2 {INR} [facility] Laboratory - CoagulationOrde red By: Dr. Rubio on 07-23-2022 aPTT Coag (Bld) [Time] 36.0 s 24.1-36.2 [facility] PT Coag (PPP) [Time] 15.3 s 11.7-14.9 [facility] No Panel InformationOrdered By: Dr. Rubio on 07-23-2022 D-Dimer Quantitative (PE/DVT) 0.55 FEU/ug/m 0.27-0.49 [facility] Comment on above: D-Dimer ELEVATED (>0 .49): Additional studies and clinicalassessments are indicated to conclude diagnosis of:Deep Vein Thrombosis (DVT) or Pulmonary Embolism (PE)CRITICAL VALUE VERIFIED. CALLED TO AHMET MENDIOLA (ONC)07/23/22 1039 Nando Balderas.RESULTS READ BACK BY SAME. Laboratory - Hematology and Cell countson 07-06-2022 HbA1c (Bld) [Mass fraction] 6.2 % 4.2-6.3 [facility] Glucose Glucometer (BldC) [M ass/Vol]Ordered By: Dr. Kasper on 06-05-2022 Glucose [Mass/Vol] 184 mg/dL 74-106 [facility] Comment on above: MANAGEMENT OF PATIEN T CARE PER NURSING PROTOCOL Absolute lymphocyte countOrd ered By: Dr. Rubio on 05-11-2022 Lymphocytes Auto (Unsp spec) [#/Vol] 1.89 10*3/uL 0.83-4.51 [facility] Basophil percentageOrdered B y: Dr. Rubio on 05-11-2022 Basophils/100 WBC (Bld) 1.1 % 0-1 [facility] Bilirubin [Mass/Vol] 0.70 mg/dL 0.20-1.00 [facility] Comment on above: For patients on eltr ombopag therapy, use of Dimension [place] TBIL is not recommended. Chloride [Moles/Vol] 105 mmol/L 98-107 [facility] Eosinophils/100 WBC (Bld) 3.3 % 0-5 [facility] Glucose [Mass/Vol] 130 mg/dL 74-106 [facility] Comment on above: Fasting Glucose resu lt greater than or equal to 126 mg/dL suggests DIABETES MELLITUS per A.D.A. criteria. Neutrophils (Bld) [#/Vol] 4.3 10*3/uL 2.0-7.7 [facility] Neutrophils/100 WBC (Bld) 61.0 % 47-70 [facility] Potassium [Moles/Vol] 4.0 mmol/L 3.5-5.1 [facility] Protein [Mass/Vol] 7.3 g/dL 6.4-8.2 [facility] Sodium [Moles/Vol] 140 mmol/L 136-145 [facility] WBC (Bld) [#/Vol] 7.1 10*3/uL 4.4-11.0 [facility] Blood erythrocytes count (nu mber/volume)Ordered By: Dr. Rubio on 05-11-2022 RBC (Bld) [#/Vol] 5.42 10*6/uL 4.2-5.4 [facility] Blood hemoglobin measurement (mass/volume)Ordered By: Dr. Rubio on 05-11-2022 Hemoglobin (Bld) [Mass/Vol] 14.7 g/dL 12.0-15.0 [facility] Blood lymphocytes/100 leukoc ytesOrdered By: Dr. Rubio on 05-11-2022 Lymphocytes/100 WBC (Bld) 26.7 % 19-41 [facility] Blood monocytes/100 leukocyt esOrdered By: Dr. Rubio on 05-11-2022 Monocytes/100 WBC (Bld) 7.2 % 0-10 [facility] Blood platelet mean volumeOr dered By: Dr. Rubio on 05-11-2022 Platelet mean volume (Bld) [Entitic vol] 9.4 fL 6.2-12.0 [facility] Determination of erythrocyte mean corpuscular volume (MCV)Ordered By: Dr. Rubio on 05-11-2022 MCV (RBC) [Entitic vol] 85.2 fL 81-99 [facility] Hematocrit Auto (Bld) [Volum e fraction]Ordered By: Dr. Rubio on 05-11-2022 Hematocrit (Bld) [Volume fraction] 46.2 % 37-47 [facility] INR in Blood by Coagulation assayon 05-11-2022 INR Coag (Bld) [Relative time] 1.4 {INR} [facility] Work Phone: Laboratory - Chemistry and C hemistry - challengeOrdered By: Dr. Rubio on 05-11-2022 ALP [Catalytic activity/Vol] 87 U/L 45-117 [facility] ALT [Catalytic activity/Vol] 22 U/L 13-56 [facility] CO2 [Moles/Vol] 30.0 mmol/L 21.0-32.0 [facility] Globulin (S) [Mass/Vol] 3.9 g/dL 2.2-4.2 [facility] Urea nitrogen/Creatinine [Mass ratio] 21.4 mg/mg 10-20 [facility] Laboratory - Coagulationon 1 07-11-2021 aPTT Coag (Bld) [Time] 38.7 s 24.1-36.2 [facility] Work Phone: PT Coag (PPP) [Time] 16.4 s 11.7-14.9 [facility] Work Phone: Laboratory - Hematology and Cell countsOrdered By: Dr. Rubio on 05-11-2022 Erythrocyte distribution width (RBC) [Entitic vol] 43.6 fL 35.1-43.9 [facility] Erythrocyte distribution width (RBC) [Ratio] 14.2 % 11.6-14.6 [facility] Immature granulocytes/100 WBC (Bld) 0.700 % 0.0-0.9 [facility] Comment on above: IG% - Immature Granu locytes (promyelocytes, myelocytes and metamyelocytes) > 1% indicates that a LEFT SHIFT is Present. MCH (RBC) [Entitic mass] 27.1 pg 27.0-32.0 [facility] Nucleated RBC/100 WBC (Bld) [Ratio] 0 % 0-5 [facility] MCHC Auto (RBC) [Mass/Vol]Or dered By: Dr. Rubio on 05-11-2022 MCHC (RBC) [Mass/Vol] 31.8 g/dL 32-36 [facility] No Panel Informationon 05-11 D-Dimer Quantitative (PE/DVT) 0.76 FEU/ug/m 0.27-0.49 [facility] Work Phone: Comment on above: D-Dimer ELEVATED (>0 .49): Additional studies and clinicalassessments are indicated to conclude diagnosis of:Deep Vein Thrombosis (DVT) or Pulmonary Embolism (PE)CRITICAL VALUE VERIFIED. CALLED TO BORA BORGES05/11/22 1441 Ирина Quiros.RESULTS READ BACK BY SAME . No Panel InformationOrdered By: Dr. Rubio on 05-11-2022 Estimated GFR (MDRD) Amer 80 mL/min >60 [facility] Comment on above: GFR Calc Estimated GFR (MDRD) Non-Af Amer 66 mL/min >60 [facility] Comment on above: Non- GFR Calc Platelets bldOrdered By: Dr. Rubio on 05-11-2022 Platelets (Bld) [#/Vol] 235 10*3/uL 150-450 [facility] Serum or plasma albumin shekhar urement (mass/volume)Ordered By: Dr. Rubio on 05-11-2022 Albumin [Mass/Vol] 3.4 g/dL 3.2-5.0 [facility] Serum or plasma albumin/glob ulin mass ratioOrdered By: Dr. Rubio on 05-11-2022 Albumin/Globulin [Mass ratio] 0.9 {ratio} 0.9-2.4 [facility] Serum or plasma calcium shekhar urement (mass/volume)Ordered By: Dr. Rubio on 05-11-2022 Calcium [Mass/Vol] 9.4 mg/dL 8.5-10.1 [facility] Serum or plasma creatinine m easurement (mass/volume)Ordered By: Dr. Rubio on 05-11-2022 Creatinine [Mass/Vol] 0.89 mg/dL 0.55-1.02 [facility] Comment on above: The validity of the calculated GFR & GFRAA in patients over 70 years has not been determined. Clinical correlation is essential. Serum or plasma urea nitroge n measurement (mass/volume)Ordered By: Dr. Rubio on 05-11-2022 Urea nitrogen [Mass/Vol] 19 mg/dL 7-18 [facility] Thin prep Papanicolaou smear with manual screeningOrdered By: Dr. Rubio on 05-11-2022 Thin prep Papanicolaou smear with manual screening 18 U/L 15-37 [facility] Thin prep Papanicolaou smear with manual screening 5 5-15 [facility] Thin prep Papanicolaou smear with manual screening 177 U/L 84-246 [facility] Absolute lymphocyte counton 01-30-2022 Lymphocytes Auto (Unsp spec) [#/Vol] 2.01 10*3/uL 0.83-4.51 [facility] Work Phone: Basophil percentageon 2021 Basophils/100 WBC (Bld) 0.9 % 0-1 [facility] Work Phone: Bilirubin [Mass/Vol] 0.40 mg/dL 0.20-1.00 [facility] Work Phone: Comment on above: For patients on eltr ombopag therapy, use of Dimension [place] TBIL is not recommended. Chloride [Moles/Vol] 102 mmol/L 98-107 [facility] Work Phone: Cholesterol [Mass/Vol] 253 mg/dL <200 [facility] Work Phone: Comment on above: <200 mg/dL Desirable 200-240 mg/dL Borderline >240 mg/dL High Risk Eosinophils/100 WBC (Bld) 3.7 % 0-5 [facility] Work Phone: Glucose [Mass/Vol] 137 mg/dL 74-106 [facility] Work Phone: Comment on above: Fasting Glucose resu lt greater than or equal to 126 mg/dL suggests DIABETES MELLITUS per A.D.A. criteria. Neutrophils (Bld) [#/Vol] 5.6 10*3/uL 2.0-7.7 [facility] Work Phone: Neutrophils/100 WBC (Bld) 64.3 % 47-70 [facility] Work Phone: Potassium [Moles/Vol] 4.0 mmol/L 3.5-5.1 [facility] Work Phone: Protein [Mass/Vol] 7.6 g/dL 6.4-8.2 [facility] Work Phone: Sodium [Moles/Vol] 138 mmol/L 136-145 [facility] Work Phone: Triglyceride [Mass/Vol] 293 mg/dL <199 [facility] Work Phone: Comment on above: The drugs N-Acetylcy steine and Metamizole may falsely depress this assay.Serum Triglycerides Reference Interval Normal <150 mg/dL Borderline high 150 - 199 mg/dL High 200 - 499 mg/dL Very High > or = 500 mg/dL WBC (Bld) [#/Vol] 8.7 10*3/uL 4.4-11.0 [facility] Work Phone: Blood erythrocytes count (nu mber/volume)on 01-30-2022 RBC (Bld) [#/Vol] 5.32 10*6/uL 4.2-5.4 [facility] Work Phone: Blood hemoglobin measurement (mass/volume)on 01-30-2022 Hemoglobin (Bld) [Mass/Vol] 15.2 g/dL 12.0-15.0 [facility] Work Phone: Blood lymphocytes/100 leukoc yteson 01-30-2022 Lymphocytes/100 WBC (Bld) 23.1 % 19-41 [facility] Work Phone: Blood monocytes/100 leukocyt eson 01-30-2022 Monocytes/100 WBC (Bld) 7.1 % 0-10 [facility] Work Phone: Blood platelet mean volumeon 01-30-2022 Platelet mean volume (Bld) [Entitic vol] 9.7 fL 6.2-12.0 [facility] Work Phone: Determination of erythrocyte mean corpuscular volume (MCV)on 01-30-2022 MCV (RBC) [Entitic vol] 88.7 fL 81-99 [facility] Work Phone: Hematocrit Auto (Bld) [Volum e fraction]on 01-30-2022 Hematocrit (Bld) [Volume fraction] 47.2 % 37-47 [facility] Work Phone: Laboratory - Chemistry and C hemistry - challengeon 01-30-2022 ALP [Catalytic activity/Vol] 87 U/L 45-117 [facility] Work Phone: ALT [Catalytic activity/Vol] 20 U/L 13-56 [facility] Work Phone: CO2 [Moles/Vol] 30.0 mmol/L 21.0-32.0 [facility] Work Phone: Globulin (S) [Mass/Vol] 4.2 g/dL 2.2-4.2 [facility] Work Phone: Urea nitrogen/Creatinine [Mass ratio] 17.4 mg/mg 10-20 [facility] Work Phone: Laboratory - Hematology and Cell countson 01-30-2022 Erythrocyte distribution width (RBC) [Entitic vol] 44.5 fL 35.1-43.9 [facility] Work Phone: Erythrocyte distribution width (RBC) [Ratio] 13.9 % 11.6-14.6 [facility] Work Phone: Immature granulocytes/100 WBC (Bld) 0.900 % 0.0-0.9 [facility] Work Phone: Comment on above: IG% - Immature Granu locytes (promyelocytes, myelocytes and metamyelocytes) > 1% indicates that a LEFT SHIFT is Present. MCH (RBC) [Entitic mass] 28.6 pg 27.0-32.0 [facility] Work Phone: Nucleated RBC/100 WBC (Bld) [Ratio] 0 % 0-5 [facility] Work Phone: HbA1c (Bld) [Mass fraction] 6.5 % 4.2-6.3 [facility] Work Phone: MCHC Auto (RBC) [Mass/Vol]on 01-30-2022 MCHC (RBC) [Mass/Vol] 32.2 g/dL 32-36 [facility] Work Phone: No Panel Informationon 01-30 Estimated GFR (MDRD) Amer 77 mL/min >60 [facility] Work Phone: Comment on above: GFR Calc Estimated GFR (MDRD) Non-Af Amer 64 mL/min >60 [facility] Work Phone: Comment on above: Non- GFR Calc Thyroid Stimulating Hormone (TSH) 3.55 uIU/mL 0.358-3.74 [facility] Work Phone: Platelets bldon 01-30-2022 Platelets (Bld) [#/Vol] 265 10*3/uL 150-450 [facility] Work Phone: Serum or plasma albumin shekhar urement (mass/volume)on 01-30-2022 Albumin [Mass/Vol] 3.4 g/dL 3.2-5.0 [facility] Work Phone: Serum or plasma albumin/glob ulin mass ratioon 01-30-2022 Albumin/Globulin [Mass ratio] 0.8 {ratio} 0.9-2.4 [facility] Work Phone: Serum or plasma calcium shekhar urement (mass/volume)on 01-30-2022 Calcium [Mass/Vol] 9.2 mg/dL 8.5-10.1 [facility] Work Phone: Serum or plasma cholesterol in HDL measurement (mass/volume)on 01-30-2022 Cholesterol in HDL [Mass/Vol] 38 mg/dL >40 [facility] Work Phone: Comment on above: The drugs N-Acetylcy steine and Metamizole may falsely depress this assay. Reference Range HDL <40 mg/dL Low HDL Cholesterol HDL >or= 60 mg/dL High HDL Cholesterol Serum or plasma cholesterol in VLDL measurement (mass/volume)on 01-30-2022 Cholesterol in VLDL [Mass/Vol] 59 mg/dL 5-40 [facility] Work Phone: Serum or plasma creatinine m easurement (mass/volume)on 01-30-2022 Creatinine [Mass/Vol] 0.92 mg/dL 0.55-1.02 [facility] Work Phone: Comment on above: The validity of the calculated GFR & GFRAA in patients over 70 years has not been determined. Clinical correlation is essential. Serum or plasma low density lipoprotein (LDL) cholesterol measurement (mass/volume)on 01-30-2022 Cholesterol in LDL [Mass/Vol] 156 mg/dL 0-130 [facility] Work Phone: Serum or plasma urea nitroge n measurement (mass/volume)on 01-30-2022 Urea nitrogen [Mass/Vol] 16 mg/dL 7-18 [facility] Work Phone: Thin prep Papanicolaou smear with manual screeningon 01-30-2022 Thin prep Papanicolaou smear with manual screening 20 U/L 15-37 [facility] Work Phone: Thin prep Papanicolaou smear with manual screening 6 5-15 [facility] Work Phone: Basophil percentageon 2021 Chloride [Moles/Vol] 103 mmol/L 98-[address] [facility] Work Phone: Glucose [Mass/Vol] 131 mg/dL 74-106 [facility] Work Phone: Comment on above: Fasting Glucose resu lt greater than or equal to 126 mg/dL suggests DIABETES MELLITUS per A.D.A. criteria. Potassium [Moles/Vol] 4.2 mmol/L 3.5-5.1 [facility] Work Phone: Sodium [Moles/Vol] 139 mmol/L 136-145 [facility] Work Phone: Laboratory - Chemistry and C hemistry - challengeon 10-29-2021 CO2 [Moles/Vol] 30.0 mmol/L 21.0-32.0 [facility] Work Phone: Urea nitrogen/Creatinine [Mass ratio] 18.3 mg/mg 10-20 [facility] Work Phone: Laboratory - Hematology and Cell countson 10-29-2021 HbA1c (Bld) [Mass fraction] 6.8 % 4.2-6.3 [facility] Work Phone: Laboratory - Microbiology an d Antimicrobial susceptibilityon 10-29-2021 S. pyogenes Ag IA Ql (Unsp spec) Negative [facility] Work Phone: SARS-CoV-2 (COVID-19) RNA JASON+probe Ql (Unsp spec) Not detected Not Detect [facility] Work Phone: Comment on above: Normal Reference Ran ge: Not DetectedMethod:(RT-PCR) real-time reverse transcriptase PCRLuminex DANIELA Instrument*The Food and Drug Administration (FDA) has issued an Emergency Use Authorization (EAU) for the DANIELA SARS-CoV-2 Assay for the rapid detection of the virus that causes COVID-19. This test has been validated, but the FDAs independent review of this validation is pending.*Negative results do not preclude infection and should not be used as the sole basis for treatment or patient management. Optimum specimen types and timing for peak viral levels during infections caused by SARS-CoV-2 have not been determined. Collection of multiple specimens from the same patient may be necessary to detect the virus. The possibility of a false negative result should be considered if the patient has clinical presentation or has had recent exposure. No Panel Informationon 10-29 Estimated GFR (MDRD) Amer 82 mL/min >60 [facility] Work Phone: Comment on above: GFR Calc Estimated GFR (MDRD) Non-Af Amer 68 mL/min >60 [facility] Work Phone: Comment on above: Non- GFR Calc Serum or plasma calcium shekhar urement (mass/volume)on 10-29-2021 Calcium [Mass/Vol] 9.0 mg/dL 8.5-10.1 [facility] Work Phone: Serum or plasma creatinine m easurement (mass/volume)on 10-29-2021 Creatinine [Mass/Vol] 0.87 mg/dL 0.55-1.02 [facility] Work Phone: Comment on above: The validity of the calculated GFR & GFRAA in patients over 70 years has not been determined. Clinical correlation is essential. Serum or plasma urea nitroge n measurement (mass/volume)on 10-29-2021 Urea nitrogen [Mass/Vol] 16 mg/dL 7-18 [facility] Work Phone: Thin prep Papanicolaou smear with manual screeningon 10-29-2021 Thin prep Papanicolaou smear with manual screening 6 5-15 [facility] Work Phone: Basophil percentageon 2021 Chloride [Moles/Vol] 104 mmol/L 98-107 [facility] Work Phone: Glucose [Mass/Vol] 131 mg/dL 74-106 [facility] Work Phone: Comment on above: Fasting Glucose resu lt greater than or equal to 126 mg/dL suggests DIABETES MELLITUS per A.D.A. criteria. Potassium [Moles/Vol] 4.1 mmol/L 3.5-5.1 [facility] Work Phone: Sodium [Moles/Vol] 139 mmol/L 136-145 [facility] Work Phone: Laboratory - Chemistry and C hemistry - challengeon 07-22-2021 CO2 [Moles/Vol] 30.0 mmol/L 21.0-32.0 [facility] Work Phone: Urea nitrogen/Creatinine [Mass ratio] 19.8 mg/mg 10-20 [facility] Work Phone: Laboratory - Hematology and Cell countson 07-22-2021 HbA1c (Bld) [Mass fraction] 6.4 % [facility] Work Phone: No Panel Informationon 07-22 Estimated GFR (MDRD) Amer 66 mL/min >60 [facility] Work Phone: Comment on above: GFR Calc Estimated GFR (MDRD) Non-Af Amer 54 mL/min >60 [facility] Work Phone: Comment on above: Non- GFR Calc Serum or plasma calcium shekhar urement (mass/volume)on 07-22-2021 Calcium [Mass/Vol] 9.4 mg/dL 8.5-10.1 [facility] Work Phone: Serum or plasma creatinine m easurement (mass/volume)on 07-22-2021 Creatinine [Mass/Vol] 1.06 mg/dL 0.55-1.02 [facility] Work Phone: Comment on above: The validity of the calculated GFR & GFRAA in patients over 70 years has not been determined. Clinical correlation is essential. Serum or plasma urea nitroge n measurement (mass/volume)on 07-22-2021 Urea nitrogen [Mass/Vol] 21 mg/dL 7-18 [facility] Work Phone: Thin prep Papanicolaou smear with manual screeningon 07-22-2021 Thin prep Papanicolaou smear with manual screening 5 5-15 [facility] Work Phone: XR CHEST PA/APon 12-23-2020 XR CHEST PA/AP EXAMINATION: XR CHEST PA/AP 12/23/2020 2:28 pm HISTORY: ORDERING SYSTEM PROVIDED HISTORY: shortness of breath, TECHNOLOGIST PROVIDED HISTORY: Illness/Other Reason for exam: sob; leg pain Cancer History: u Surgery, RadiationHistory: u Encounter Type: Initial Additional signs and symptoms: ORDERING SYSTEM PROVIDED DIAGNOSIS CODES: COMPARISON: 06/07/2019 FINDINGS: Lines and tubes: None Lungs: No pneumothorax or pleural effusion. Small retrocardiac patchy opacity. Cardiomediastinal silhouette: Unchanged mild cardiomegaly. Bones and soft tissues: No acute findings. IMPRESSION: Small retrocardiac patchy opacity may represent pneumonia or superimposed prominent blood vessels. Recommend clinical correlation. Unchanged cardiomegaly. Workstation ID: [id number] Dictated by: KADE INFANTE on WedDec 23, 2020 4:16:12 PM EDT Transcribed by: KADE INFANTE on WedDec 23, 2020 4:16:12 PM EDT Finalized by: KADE INFANTE on WedDec 23, 2020 4:16:12 PM EDT [facility] Comment on above: Order Comment: Injur y/Trauma or Illness?:Illness/Other How long have you had these symptoms (acute/chronic)?:Acute Reason for exam?:sob; leg pain History of cancer?:u Surgeries, chemotherapy, or radiation?:u Type of Exam?:Initial Additional signs and symptoms?: COVID-19, MOLECULARon 2020 SARS-CoV-2 (COVID-19) RNA JASON+probe Ql (Unsp spec) Not detected Normal Not Detected [facility] Comment on above: Result Comment: This test was performed under the FDA's Emergency Use Authorization (EUA). Testing was performed using the Michael SARS-CoV-2 RT-PCR assay on the Jose Michael 6800 System. This test has not been approved for use in asymptomatic patients and its performance in this patient population has not been evaluated. Negative results do not rule out the presence of SARS-CoV-2/COVID-19. Fact sheets for this EUA can be found at the following links: For Healthcare Providers: https://www.fda.gov/media/008187/download For Patients: https://www.fda.gov/media/043822/download Performed By: #### L [id number] #### [facility] [address] [place] [address] Kentrell Moore M.D. [id number] XR BONE DENSITY DEXA AXIALon 09-12-2020 XR BONE DENSITY DEXA AXIAL EXAMINATION: BONE DENSITOMETRY 09/12/2020 COMPARISON: None. HISTORY: age related osteoporosis TECHNIQUE: Bone mineral density measurements were obtained of the lumbar spine and left hip, left forearm on a etouches machine. FINDINGS: BONE MINERAL DENSITY DETERMINATION: Risk Factors: Postmenopausal The average bone mineral density was measured across the left hip, left forearm and across the spine. Dens ity T-s core Left femoral neck 0.680 - 2.6 Total Left Hip 0.737 - 2.1 Spine 1.176 0 Left forearm 0.721 0 .6 Final categorization (based on the lowest T-score of the above, as recommended by the International Society of Clinical Densitometry): Osteoporosis NOTES: 1. This facility has been validated using the recommendations of the International Society of Clinical Densitometry (ISCD). This validation insures accurate results. In order to be certain that your patient's results are accurate, you should refer them only to facilities that have been validated in this manner. Not all facilities have gone through this rigorous validation. 2. In order to compare results through the years, it is necessary that the patient be scanned on the same instrument each time, or on instruments that have been cross-correlated. If this is not done, then difference may be due to differences in the machines, rather than to changes in the patient's bone density. IMPRESSION: 1. Left femoral neck indicates early osteoporosis. 2. Lumbar spine indicates no osteopenia or osteoporosis. 3. Left forearm indicates no osteopenia or osteoporosis Workstation ID: [id number] Dictated by: MARJORIE BEAL on WedSep 12, 2020 10:32:37 AM EDT Transcribed by: MARJORIE BEAL on WedSep 12, 2020 10:32:37 AM EDT Finalized by: MARJORIE BEAL on WedSep 12, 2020 10:32:37 AM EDT Normal [facility] Comment on above: Order Comment: Injur y/Trauma or Illness?:Illness/Other How long have you had these symptoms (acute/chronic)?:Unknown Reason for exam?: Age-related osteoporosis without current pathological fracture Type of Exam?:Initial Additional signs and symptoms?:none MM SCREENING BILATERALon MM SCREENING BILATERAL EXAMINATION: MM SCREENING BILATERAL Computer-aided detection was utilized in the interpretation of this exam. HISTORY: Screening for breast cancer COMPARISON: None. TECHNIQUE: 2D views. FINDINGS: Breasts are of scattered fibroglandular composition. There are prominent superficial veins overlying both breasts. No suspicious mass or microcalcifications. No enlarged lymph nodes. IMPRESSION: Negative bilateral mammography. Category 1 - Negative, no evidence of malignancy. Normal interval follow-up is recommended in 12 months. OVERALL ASSESSMENT - NEGATIVE A letter of notification will be sent to the patient regarding the results. [facility], along with the [employer], the [employer], and [facility], recommend annual screening mammograms for women age 40 and older. [employer] Workstation ID: [id number] Dictated by: PEREZ GALEANO on WedMay 02, 2020 12:16:02 PM EST Transcribed by: NAVNEET VELASQUEZ on WedMay 02, 2020 12:30:24 PM EST Finalized by: PEREZ GALEANO on WedMay 02, 2020 12:32:02 PM EST Normal [facility] Mammography Screening Bilate [facility] 05-02-2020 Negative bilateral mammography. Category 1 - Negative, no evidence of malignancy. Normal interval follow-up is recommended in 12 months. OVERALL ASSESSMENT - NEGATIVE A letter of notification will be sent to the patient regarding the results. [facility], along with the [employer], the [employer], and [facility], recommend annual screening mammograms for women age 40 and older. [employer] Workstation ID: [id number] [facility] EXAMINATION: MM SCRE ENING BILATERAL Computer-aided detection was utilized in the interpretation of this exam. HISTORY: Screening for breast cancer COMPARISON: None. TECHNIQUE: 2D views. FINDINGS: Breasts are of scattered fibroglandular composition. There are prominent superficial veins overlying both breasts. No suspicious mass or microcalcifications. No enlarged lymph nodes. [facility] POC CBC and Differentialon 0 01-28-2020 Erythrocyte distribution width (RBC) [Entitic vol] 14.4 % 11.6 - 14.8 % [facility] Hematocrit (Bld) [Volume fraction] 42.8 % 36 - 46 % [facility] Hemoglobin (Bld) [Mass/Vol] 14.3 g/dL 12 - 16 g/dL [facility] Lymphocytes (Bld) [#/Vol] 1.8 10*3/uL [facility] Lymphocytes/100 WBC (Bld) 27.1 % [facility] MCH (RBC) [Entitic mass] 28.9 pg 26 - 34 pg [facility] MCHC (RBC) [Mass/Vol] 33.4 g/dL 31 - 37 g/dL [facility] MCV (RBC) [Entitic vol] 86.6 fL 80 - 100 fL [facility] Mixed 6.4 % [facility] Mixed Abs 0.4 K/mcl [facility] Neutrophil Abs 4.4 [facility] Neutrophils/100 WBC (Bld) 66.5 % [facility] Platelet mean volume (Bld) [Entitic vol] 10.0 fL 9.4 - 12.4 fL [facility] Platelets (Bld) [#/Vol] 215 10*3/uL [facility] RBC (Bld) [#/Vol] 4.94 10*6/uL [facility] WBC (Bld) [#/Vol] 6.60 10*3/uL [facility] POC Glucoseon 01-28-2020 Glucose [Mass/Vol] 123 mg/dL Abnormal 65 - 99 mg/dL [facility] Interpretation and review of laboratory results Abnormal [facility] Glucose [Mass/Vol] 123 mg/dL High 65 - 99 mg/dL [facility] Interpretation and review of laboratory results Abnormal [facility] XR KNEE LEFT 2 VIEWS (STANDA RD)on 01-28-2020 XR KNEE LEFT 2 VIEWS (STANDARD) EXAMINATION: XR KNEE LEFT 2 VIEWS (STANDARD) 01/28/2020 2:49 PM HISTORY: ORDERING SYSTEM PROVIDED HISTORY: Left knee pain after trying to get into a car nearly a week ago, TECHNOLOGIST PROVIDED HISTORY: Illness/Other Reason for exam: Pt notes left lower leg pain x 1 week and left knee pain since this morning Cancer History: u Surgery, RadiationHistory: u Encounter Type: Initial Additional signs and symptoms: n FINDINGS: AP and lateral views of the left knee demonstrate severe degenerative changes of the medial compartment with near complete loss of the joint space, subchondral sclerosis and marginal osteophytes. There are also ecpv-vb-[id number] degenerative changes of the patellofemoral and lateral compartments. No lytic bone lesion or acute fracture is seen. Minimal joint fluid suspected as seen on the lateral view. IMPRESSION: 1. 3-compartment osteoarthritic changes, severely involving the medial compartment. DPR/trw Workstation ID: [id number] Dictated by: MARJORIE BAUMAN on [place] Jan 28, 2020 2:59:23 PM EDT Transcribed by: JESSICA EISENBERG on [place] Jan 28, 2020 3:32:06 PM EDT Finalized by: MARJORIE BAUMAN on [place] Jan 28, 2020 3:33:30 PM EDT [facility] Comment on above: Order Comment: Injur y/Trauma or Illness?:Illness/Other How long have you had these symptoms (acute/chronic)?:Acute Reason for exam?:Pt notes left lower leg pain x 1 week and left knee pain since this morning History of cancer?:u Surgeries, chemotherapy, or radiation?:u Type of Exam?:Initial Additional signs and symptoms?:n EXAMINATION: XR KNEE LEFT 2 VIEWS (STANDARD) 01/28/2020 2:49 PM HISTORY: ORDERING SYSTEM PROVIDED HISTORY: Left knee pain after trying to get into a car nearly a week ago, TECHNOLOGIST PROVIDED HISTORY: Illness/Other Reason for exam: Pt notes left lower leg pain x 1 week and left knee pain since this morning Cancer History: u Surgery, RadiationHistory: u Encounter Type: Initial Additional signs and symptoms: n FINDINGS: AP and lateral views of the left knee demonstrate severe degenerative changes of the medial compartment with near complete loss of the joint space, subchondral sclerosis and marginal osteophytes. There are also ximx-ef-frbubtje degenerative changes of the patellofemoral and lateral compartments. No lytic bone lesion or acute fracture is seen. Minimal joint fluid suspected as seen on the lateral view. [facility] 1. 3-compartment osteoarthritic changes, severely involving the medial compartment. DPR/trw Workstation ID: [id number] [facility] Interface, Rad In ji Speechq - 01/28/2020 3:36 PM EDT EXAMINATION: XR KNEE LEFT 2 VIEWS (STANDARD) 01/28/2020 2:49 PM HISTORY: ORDERING SYSTEM PROVIDED HISTORY: Left knee pain after trying to get into a car nearly a week ago, TECHNOLOGIST PROVIDED HISTORY: Illness/Other Reason for exam: Pt notes left lower leg pain x 1 week and left knee pain since this morning Cancer History: u Surgery, RadiationHistory: u Encounter Type: Initial Additional signs and symptoms: n FINDINGS: AP and lateral views of the left knee demonstrate severe degenerative changes of the medial compartment with near complete loss of the joint space, subchondral sclerosis and marginal osteophytes. There are also whum-ai-gxjbhejl degenerative changes of the patellofemoral and lateral compartments. No lytic bone lesion or acute fracture is seen. Minimal joint fluid suspected as seen on the lateral view. IMPRESSION: 1. 3-compartment osteoarthritic changes, severely involving the medial compartment. DPR/trw Workstation ID: [id number] [facility] Unna Boot Compression Dressi ngon 06-23-2019 Jing Gutierrez RN 06/23/2019 9:39 AM Multi-layer Compression Wrap Procedure Performed for: Bilateral legs Performed by:: Clinician aw Procedural Pain: 0 Bandage Type: Compression Compression Layers: Multi-layer Compression Product Type: Unna boot Dressing Applied: No Extremity Location: Below Knee [facility] Unna Boot Compression Dressi ngon 06-19-2019 Elyse George RN 06/19/2019 12:28 PM Multi-layer Compression Wrap Performed by:: Clinician Procedural Pain: 0 Bandage Type: Compression Compression Layers: Multi-layer Compression Product Type: Unna boot Dressing Applied: No Extremity Location: Below Knee [facility] POC Glucoseon 06-09-2019 Glucose [Mass/Vol] 180 mg/dL High 65 - 99 mg/dL [facility] Interpretation and review of laboratory results Abnormal [facility] CT Shoulder Right Without Co ntraston 06-08-2019 EXAMINATION: CT SHOU LDER RIGHT WITHOUT CONTRAST HISTORY: ORDERING SYSTEM PROVIDED HISTORY: Shoulder pain, initial exam, TECHNOLOGIST PROVIDED HISTORY: Injury/Trauma Reason for exam: pt complains of rt shoulder pain, states she did hit her shoulder on the wall a month ago Encounter Type: Initial Mechanism of injury: pt complains of rt shoulder pain, states she did hit her shoulder on the wall a month ago ORDERING SYSTEM PROVIDED DIAGNOSIS CODES: L03.115 Cellulitis of right lower extremity L03.116 Cellulitis and abscess of left lower extremity L02.416 Cellulitis and abscess of left lower extremity B37.2 Candidiasis of skin COMPARISON: Right shoulder radiographs, 2 days ago. TECHNIQUE: Dose reduction techniques were achieved by using automated exposure control and/or adjustment of mA and/or kV according to patient size and/or use of iterative reconstruction technique. Noncontrast CT of the right shoulder performed. FINDINGS: There is no acute fracture or dislocation. Glenohumeral alignment is maintained. Mild arthritic disease of the AC joint without subluxation. No indication of rotator cuff atrophy. There are subchondral cysts at the insertion of the supraspinatus. [facility] 1. 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 2. There is evidence of chronic mild rotator cuff tendinopathy. No evidence of muscle atrophy. [employer] Workstation ID: [id number] [facility] Interface, Dayne In Chente ji Speechq - 06/08/2019 1:31 PM EST EXAMINATION: CT SHOULDER RIGHT WITHOUT CONTRAST HISTORY: ORDERING SYSTEM PROVIDED HISTORY: Shoulder pain, initial exam, TECHNOLOGIST PROVIDED HISTORY: Injury/Trauma Reason for exam: pt complains of rt shoulder pain, states she did hit her shoulder on the wall a month ago Encounter Type: Initial Mechanism of injury: pt complains of rt shoulder pain, states she did hit her shoulder on the wall a month ago ORDERING SYSTEM PROVIDED DIAGNOSIS CODES: L03.115 Cellulitis of right lower extremity L03.116 Cellulitis and abscess of left lower extremity L02.416 Cellulitis and abscess of left lower extremity B37.2 Candidiasis of skin COMPARISON: Right shoulder radiographs, 2 days ago. TECHNIQUE: Dose reduction techniques were achieved by using automated exposure control and/or adjustment of mA and/or kV according to patient size and/or use of iterative reconstruction technique. Noncontrast CT of the right shoulder performed. FINDINGS: There is no acute fracture or dislocation. Glenohumeral alignment is maintained. Mild arthritic disease of the AC joint without subluxation. No indication of rotator cuff atrophy. There are subchondral cysts at the insertion of the supraspinatus. IMPRESSION: 1. 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 2. There is evidence of chronic mild rotator cuff tendinopathy. No evidence of muscle atrophy. [employer] Workstation ID: [id number] [place] POC Glucoseon 06-08-2019 Glucose [Mass/Vol] 195 mg/dL High 65 - 99 mg/dL [facility] Interpretation and review of laboratory results Abnormal [facility] Glucose [Mass/Vol] 158 mg/dL High 65 - 99 mg/dL [facility] Interpretation and review of laboratory results Abnormal [facility] Glucose [Mass/Vol] 110 mg/dL High 65 - 99 mg/dL [facility] Interpretation and review of laboratory results Abnormal [facility] Glucose [Mass/Vol] 122 mg/dL High 65 - 99 mg/dL [facility] Interpretation and review of laboratory results Abnormal [facility] Basic Metabolic Panelon 05-21 Anion gap [Moles/Vol] 11 mmol/L 10 - 2 0 mmol/L [facility] Calcium [Mass/Vol] 8.3 mg/dL Low 8.4 - 10. 2 mg/dL [facility] Chloride [Moles/Vol] 103 mmol/L 98 - 10 8 mmol/L [facility] Creatinine [Mass/Vol] 0.78 mg/dL 0.6 - 1.2 mg/dL [facility] GFR/1.73 sq M predicted among non-blacks MDRD (S/P/Bld) [Vol rate/Area] The eGFR should be used for monitoring renal function only and not for medication dosing. [facility] GFR/1.73 sq M.predicted CKD-EPI (S/P/Bld) [Vol rate/Area] 77 >=60 mL/min/1.73 m2 [facility] Glucose [Mass/Vol] 127 mg/dL High 65 - 99 mg/dL [facility] HCO3 [Moles/Vol] 30 mmol/L 21 - 32 mmol/L [facility] Potassium [Moles/Vol] 3.5 mmol/L 3.5 - 5.1 mmol/L [facility] Sodium [Moles/Vol] 140 mmol/L 135 - 145 mmol/L [facility] Urea nitrogen [Mass/Vol] 13 mg/dL 8 - 25 mg/dL [facility] Urea nitrogen/Creatinine [Mass ratio] 16.7 mg/mg [facility] CBC WITH AUTO DIFFERENTIALon 06-07-2019 Basophils (Bld) [#/Vol] 0.06 10*3/uL [facility] Basophils/100 WBC (Bld) 1.0 % [facility] Eosinophils (Bld) [#/Vol] 0.27 10*3/uL [facility] Eosinophils/100 WBC (Bld) 4.3 % [facility] Erythrocyte distribution width (RBC) [Entitic vol] 13.5 % 11.6 - 14.8 % [facility] Hematocrit (Bld) [Volume fraction] 40.6 % 36 - 46 % [facility] Hemoglobin (Bld) [Mass/Vol] 13.2 g/dL 12 - 16 g/dL [facility] Immature granulocytes (Bld) [#/Vol] 0.06 10*3/uL [facility] Immature granulocytes/100 WBC (Bld) 1.00 % [facility] Comment on above: The IG parameter is the percentage of metamyelocytes, myelocytes, and promyelocytes. Lymphocytes (Bld) [#/Vol] 2.32 10*3/uL [facility] Lymphocytes/100 WBC (Bld) 37.2 % [facility] MCH (RBC) [Entitic mass] 28.0 pg 26 - 34 pg [facility] MCHC (RBC) [Mass/Vol] 32.5 g/dL 31 - 37 g/dL [facility] MCV (RBC) [Entitic vol] 86.2 fL 80 - 100 fL [facility] Monocytes (Bld) [#/Vol] 0.46 10*3/uL [facility] Monocytes/100 WBC (Bld) 7.4 % [facility] Neutrophils (Bld) [#/Vol] 3.06 10*3/uL [facility] Neutrophils/100 WBC (Bld) 49.1 % [facility] Nucleated RBC (Bld) [#/Vol] 0.00 10*3/uL [facility] Nucleated RBC/100 WBC (Bld) [Ratio] 0.0 % [facility] Platelet mean volume (Bld) [Entitic vol] 9.7 fL 9 - 15.5 fL [facility] Platelets (Bld) [#/Vol] 203 10*3/uL [facility] RBC (Bld) [#/Vol] 4.71 10*6/uL [facility] WBC (Bld) [#/Vol] 6.23 10*3/uL [facility] Hepatic Function Panelon Albumin [Mass/Vol] 3.0 g/dL Low 3.2 - 5.2 g/dL [facility] ALP [Catalytic activity/Vol] 80 U/L 40 - 150 U/L [facility] ALT [Catalytic activity/Vol] 11 U/L Low 14 - 65 U/L [facility] AST [Catalytic activity/Vol] 17 U/L 0 - 45 U/L [facility] Bilirubin [Mass/Vol] 0.3 mg/dL 0 - 1.3 mg/dL [facility] Bilirubin.conjugated [Mass/Vol] 0.1 mg/dL 0 - 0.4 mg/dL [facility] Protein [Mass/Vol] 6.3 g/dL 6 - 8 g/dL [facility] Magnesium Levelon 06-07-2019 Interpretation and review of laboratory results Normal [facility] Magnesium [Mass/Vol] 1.7 mg/dL 1.6 - 2 .4 mg/dL [facility] Otheron 06-07-2019 Interpretation and review of laboratory results Abnormal [facility] POC Glucoseon 06-07-2019 Glucose [Mass/Vol] 131 mg/dL High 65 - 99 mg/dL [facility] Interpretation and review of laboratory results Abnormal [facility] Glucose [Mass/Vol] 116 mg/dL High 65 - 99 mg/dL [facility] Interpretation and review of laboratory results Abnormal [facility] Glucose [Mass/Vol] 138 mg/dL High 65 - 99 mg/dL [facility] Interpretation and review of laboratory results Abnormal [facility] Glucose [Mass/Vol] 119 mg/dL High 65 - 99 mg/dL [facility] Interpretation and review of laboratory results Abnormal [facility] XR CHEST AP/PA AND LATon EXAMINATION: TWO-VIE W CHEST HISTORY: ORDERING SYSTEM PROVIDED HISTORY: Pleural thickening, TECHNOLOGIST PROVIDED HISTORY: Illness/Other Reason for exam: couugh Cancer History: u Surgery, RadiationHistory: u Encounter Type: Initial Additional signs and symptoms: pleural thickening ORDERING SYSTEM PROVIDED DIAGNOSIS CODES: L03.115 Cellulitis of right lower extremity L03.116 Cellulitis and abscess of left lower extremity L02.416 Cellulitis and abscess of left lower extremity B37.2 Candidiasis of skin COMPARISON: Chest x-ray 08/02/2013, 06/08/2012. FINDINGS: Frontal and lateral views of the chest are submitted. The cardiomediastinal silhouette is enlarged, stable. Lungs, pleural spaces and pulmonary vasculature are normal. No acute osseous lesions are seen. [facility] Interface, Rad In Fu ji Speechq - 06/07/2019 10:43 AM EST EXAMINATION: TWO-VIEW CHEST HISTORY: ORDERING SYSTEM PROVIDED HISTORY: Pleural thickening, TECHNOLOGIST PROVIDED HISTORY: Illness/Other Reason for exam: couugh Cancer History: u Surgery, RadiationHistory: u Encounter Type: Initial Additional signs and symptoms: pleural thickening ORDERING SYSTEM PROVIDED DIAGNOSIS CODES: L03.115 Cellulitis of right lower extremity L03.116 Cellulitis and abscess of left lower extremity L02.416 Cellulitis and abscess of left lower extremity B37.2 Candidiasis of skin COMPARISON: Chest x-ray 08/02/2013, 06/08/2012. FINDINGS: Frontal and lateral views of the chest are submitted. The cardiomediastinal silhouette is enlarged, stable. Lungs, pleural spaces and pulmonary vasculature are normal. No acute osseous lesions are seen. IMPRESSION: 1. No acute cardiopulmonary abnormality. 2. Stable cardiomegaly. VKR/[employer]aam[employer] Workstation ID: 387RRA [place] 1. No acute cardiopulmonary abnormality. 2. Stable cardiomegaly. VKR/Quaamf Workstation ID: [id number] [facility] XR Shoulder Right 2+ Views ( Standard)on 06-07-2019 - Cortical irregular ity suggesting impacted fracture in the humeral head/neck area. This is only demonstrated on the internal rotation view. Further evaluation is recommended/indicated with CT. Differential includes an artifact of positioning. - Findings suggest pleural thickening along the RIGHT lateral chest wall. Interstitial accentuation in the visualized lung. If further evaluation is felt to be indicated, follow-up should be considered with chest x-ray. Workstation ID: [id number] [facility] Interface, Rad In Fu ji Speechq - 06/07/2019 5:25 AM EST XR RIGHT SHOULDER COMPLETE, 2 OR MORE VIEWS ([id number]) CLINICAL HISTORY: ORDERING SYSTEM PROVIDED R shoulder pain, TECHNOLOGIST PROVIDED HISTORY: Illness/Other Reason for exam: pain Cancer History: u Surgery, RadiationHistory: u Encounter Type: Initial Additional signs and symptoms: . ORDERING SYSTEM PROVIDED DIAGNOSIS CODES: L03.115 Cellulitis of right lower extremity L03.116 Cellulitis and abscess of left lower extremity L02.416 Cellulitis and abscess of left lower extremity B37.2 Candidiasis of skin Two or more views of the right shoulder. COMPARISON: No relevant prior studies available. FINDINGS: BONES/JOINTS: Minimal degenerative changes are present in the AC joint. Cortical irregularity suggesting impacted fracture in the humeral head/neck area. This is only demonstrated on the internal rotation view. SOFT TISSUES: No radiopaque foreign body. PLEURAL SPACE: Findings suggest pleural thickening along the RIGHT lateral chest wall. Interstitial accentuation in the visualized lung. IMPRESSION: - Cortical irregularity suggesting impacted fracture in the humeral head/neck area. This is only demonstrated on the internal rotation view. Further evaluation is recommended/indicated with CT. Differential includes an artifact of positioning. - Findings suggest pleural thickening along the RIGHT lateral chest wall. Interstitial accentuation in the visualized lung. If further evaluation is felt to be indicated, follow-up should be considered with chest x-ray. Workstation ID: [id number] [facility] XR RIGHT SHOULDER COMPLETE, 2 OR MORE VIEWS ([id number]) CLINICAL HISTORY: ORDERING SYSTEM PROVIDED R shoulder pain, TECHNOLOGIST PROVIDED HISTORY: Illness/Other Reason for exam: pain Cancer History: u Surgery, RadiationHistory: u Encounter Type: Initial Additional signs and symptoms: . ORDERING SYSTEM PROVIDED DIAGNOSIS CODES: L03.115 Cellulitis of right lower extremity L03.116 Cellulitis and abscess of left lower extremity L02.416 Cellulitis and abscess of left lower extremity B37.2 Candidiasis of skin Two or more views of the right shoulder. COMPARISON: No relevant prior studies available. FINDINGS: BONES/JOINTS: Minimal degenerative changes are present in the AC joint. Cortical irregularity suggesting impacted fracture in the humeral head/neck area. This is only demonstrated on the internal rotation view. SOFT TISSUES: No radiopaque foreign body. PLEURAL SPACE: Findings suggest pleural thickening along the RIGHT lateral chest wall. Interstitial accentuation in the visualized lung. [facility] Bilirubin, Directon 06-06-20 19 Bilirubin.conjugated [Mass/Vol] mg/dL 0 - 0.4 mg/dL [facility] CBC WITH AUTO DIFFERENTIALon 06-06-2019 Basophils (Bld) [#/Vol] 0.07 10*3/uL [facility] Basophils/100 WBC (Bld) 1.0 % [facility] Eosinophils (Bld) [#/Vol] 0.26 10*3/uL [facility] Eosinophils/100 WBC (Bld) 3.7 % [facility] Erythrocyte distribution width (RBC) [Entitic vol] 13.4 % 11.6 - 14.8 % [facility] Hematocrit (Bld) [Volume fraction] 41.3 % 36 - 46 % [facility] Hemoglobin (Bld) [Mass/Vol] 13.6 g/dL 12 - 16 g/dL [facility] Immature granulocytes (Bld) [#/Vol] 0.05 10*3/uL [facility] Immature granulocytes/100 WBC (Bld) 0.70 % [facility] Comment on above: The IG parameter is the percentage of metamyelocytes, myelocytes, and promyelocytes. Lymphocytes (Bld) [#/Vol] 2.17 10*3/uL [facility] Lymphocytes/100 WBC (Bld) 30.9 % [facility] MCH (RBC) [Entitic mass] 27.9 pg 26 - 34 pg [facility] MCHC (RBC) [Mass/Vol] 32.9 g/dL 31 - 37 g/dL [facility] MCV (RBC) [Entitic vol] 84.6 fL 80 - 100 fL [facility] Monocytes (Bld) [#/Vol] 0.55 10*3/uL [facility] Monocytes/100 WBC (Bld) 7.8 % [facility] Neutrophils (Bld) [#/Vol] 3.92 10*3/uL [facility] Neutrophils/100 WBC (Bld) 55.9 % [facility] Nucleated RBC (Bld) [#/Vol] 0.00 10*3/uL [facility] Nucleated RBC/100 WBC (Bld) [Ratio] 0.0 % [facility] Platelet mean volume (Bld) [Entitic vol] 9.7 fL 9 - 15.5 fL [facility] Platelets (Bld) [#/Vol] 222 10*3/uL [facility] RBC (Bld) [#/Vol] 4.88 10*6/uL [facility] WBC (Bld) [#/Vol] 7.02 10*3/uL [facility] Comprehensive Metabolic Pane [facility] 06-06-2019 Albumin [Mass/Vol] 3.1 g/dL Low 3.2 - 5.2 g/dL [facility] ALP [Catalytic activity/Vol] 83 U/L 40 - 150 U/L [facility] ALT [Catalytic activity/Vol] 16 U/L 14 - 65 U/L [facility] Anion gap [Moles/Vol] 9 mmol/L Low 10 - 2 0 mmol/L [facility] AST [Catalytic activity/Vol] 18 U/L 0 - 45 U/L [facility] Bilirubin [Mass/Vol] 0.4 mg/dL 0 - 1.3 mg/dL [facility] Calcium [Mass/Vol] 8.4 mg/dL 8.4 - 10. 2 mg/dL [facility] Chloride [Moles/Vol] 100 mmol/L 98 - 10 8 mmol/L [facility] Creatinine [Mass/Vol] 0.84 mg/dL 0.6 - 1.2 mg/dL [facility] GFR/1.73 sq M predicted among non-blacks MDRD (S/P/Bld) [Vol rate/Area] The eGFR should be used for monitoring renal function only and not for medication dosing. [facility] GFR/1.73 sq M.predicted CKD-EPI (S/P/Bld) [Vol rate/Area] 71 >=60 mL/min/1.73 m2 [facility] Glucose [Mass/Vol] 135 mg/dL High 65 - 99 mg/dL [facility] HCO3 [Moles/Vol] 32 mmol/L 21 - 32 mmol/L [facility] Interpretation and review of laboratory results Abnormal [facility] Potassium [Moles/Vol] 2.9 mmol/L Low 3.5 - 5.1 mmol/L [facility] Protein [Mass/Vol] 6.4 g/dL 6 - 8 g/dL [facility] Sodium [Moles/Vol] 138 mmol/L 135 - 145 mmol/L [facility] Urea nitrogen [Mass/Vol] 15 mg/dL 8 - 25 mg/dL [facility] Urea nitrogen/Creatinine [Mass ratio] 17.9 mg/mg [facility] Magnesium Levelon 06-06-2019 Magnesium [Mass/Vol] 1.7 mg/dL 1.6 - 2 .4 mg/dL [facility] Otheron 06-06-2019 Interpretation and review of laboratory results Normal [facility] POC Glucoseon 06-06-2019 Glucose [Mass/Vol] 150 mg/dL High 65 - 99 mg/dL [facility] Interpretation and review of laboratory results Abnormal [facility] Glucose [Mass/Vol] 136 mg/dL High 65 - 99 mg/dL [facility] Interpretation and review of laboratory results Abnormal [facility] Glucose [Mass/Vol] 128 mg/dL High 65 - 99 mg/dL [facility] Interpretation and review of laboratory results Abnormal [facility] Glucose [Mass/Vol] 122 mg/dL High 65 - 99 mg/dL [facility] Interpretation and review of laboratory results Abnormal [facility] XR Knee Right 2 Views (Stand michael)on 06-06-2019 Erythrocyte distribution width (RBC) [Ratio] FINDINGS/ Status post total right knee arthroplasty. No evidence of hardware complication. No acute fracture or malalignment. No sizable joint effusion. Mild overlying soft tissue swelling. Workstation ID: [id number] [facility] EXAMINATION: XR KNEE RIGHT 2 VIEWS (STANDARD) HISTORY: ORDERING SYSTEM PROVIDED HISTORY: R knee pain/numbness, TECHNOLOGIST PROVIDED HISTORY: Illness/Other Reason for exam: pain Cancer History: u Surgery, RadiationHistory: u Encounter Type: Unknown Additional signs and symptoms: hx of replacement ORDERING SYSTEM PROVIDED DIAGNOSIS CODES: L03.115 Cellulitis of right lower extremity L03.116 Cellulitis and abscess of left lower extremity L02.416 Cellulitis and abscess of left lower extremity B37.2 Candidiasis of skin COMPARISON: No relevant prior study available at time of interpretation. [facility] Dano, Dayne In Fu ji Speechq - 06/06/2019 11:16 PM EST EXAMINATION: XR KNEE RIGHT 2 VIEWS (STANDARD) HISTORY: ORDERING SYSTEM PROVIDED HISTORY: R knee pain/numbness, TECHNOLOGIST PROVIDED HISTORY: Illness/Other Reason for exam: pain Cancer History: u Surgery, RadiationHistory: u Encounter Type: Unknown Additional signs and symptoms: hx of replacement ORDERING SYSTEM PROVIDED DIAGNOSIS CODES: L03.115 Cellulitis of right lower extremity L03.116 Cellulitis and abscess of left lower extremity L02.416 Cellulitis and abscess of left lower extremity B37.2 Candidiasis of skin COMPARISON: No relevant prior study available at time of interpretation. IMPRESSION: FINDINGS/ Status post total right knee arthroplasty. No evidence of hardware complication. No acute fracture or malalignment. No sizable joint effusion. Mild overlying soft tissue swelling. Workstation ID: [id number] [facility] Basic Metabolic Panelon 05-21 Anion gap [Moles/Vol] 15 mmol/L 10 - 2 0 mmol/L [facility] Calcium [Mass/Vol] 8.5 mg/dL 8.4 - 10. 2 mg/dL [facility] Chloride [Moles/Vol] 99 mmol/L 98 - 10 8 mmol/L [facility] Creatinine [Mass/Vol] 0.85 mg/dL 0.6 - 1.2 mg/dL [facility] GFR/1.73 sq M predicted among non-blacks MDRD (S/P/Bld) [Vol rate/Area] The eGFR should be used for monitoring renal function only and not for medication dosing. [facility] GFR/1.73 sq M.predicted CKD-EPI (S/P/Bld) [Vol rate/Area] 70 >=60 mL/min/1.73 m2 [facility] Glucose [Mass/Vol] 141 mg/dL High 65 - 99 mg/dL [facility] HCO3 [Moles/Vol] 29 mmol/L 21 - 32 mmol/L [facility] Interpretation and review of laboratory results Abnormal [facility] Potassium [Moles/Vol] 3.5 mmol/L 3.5 - 5.1 mmol/L [facility] Sodium [Moles/Vol] 139 mmol/L 135 - 145 mmol/L [facility] Urea nitrogen [Mass/Vol] 16 mg/dL 8 - 25 mg/dL [facility] Urea nitrogen/Creatinine [Mass ratio] 18.8 mg/mg [facility] Magnesium Levelon 06-05-2019 Interpretation and review of laboratory results Normal [facility] Magnesium [Mass/Vol] 1.8 mg/dL 1.6 - 2 .4 mg/dL [facility] POC Glucoseon 06-05-2019 Glucose [Mass/Vol] 143 mg/dL High 65 - 99 mg/dL [facility] Interpretation and review of laboratory results Abnormal [facility] Glucose [Mass/Vol] 140 mg/dL High 65 - 99 mg/dL [facility] Interpretation and review of laboratory results Abnormal [facility] Glucose [Mass/Vol] 133 mg/dL High 65 - 99 mg/dL [facility] Interpretation and review of laboratory results Abnormal [facility] Glucose [Mass/Vol] 127 mg/dL High 65 - 99 mg/dL [facility] Interpretation and review of laboratory results Abnormal [facility] Glucose [Mass/Vol] 132 mg/dL High 65 - 99 mg/dL [facility] Interpretation and review of laboratory results Abnormal [facility] POC Glucoseon 06-04-2019 Glucose [Mass/Vol] 128 mg/dL High 65 - 99 mg/dL [facility] Interpretation and review of laboratory results Abnormal [facility] Glucose [Mass/Vol] 132 mg/dL High 65 - 99 mg/dL [facility] Interpretation and review of laboratory results Abnormal [facility] Glucose [Mass/Vol] 125 mg/dL High 65 - 99 mg/dL [facility] Interpretation and review of laboratory results Abnormal [facility] Glucose [Mass/Vol] 141 mg/dL High 65 - 99 mg/dL [facility] Interpretation and review of laboratory results Abnormal [facility] POC Glucoseon 06-03-2019 Glucose [Mass/Vol] 171 mg/dL High 65 - 99 mg/dL [facility] Interpretation and review of laboratory results Abnormal [facility] Glucose [Mass/Vol] 149 mg/dL High 65 - 99 mg/dL [facility] Interpretation and review of laboratory results Abnormal [facility] Glucose [Mass/Vol] 138 mg/dL High 65 - 99 mg/dL [facility] Interpretation and review of laboratory results Abnormal [facility] Glucose [Mass/Vol] 127 mg/dL High 65 - 99 mg/dL [facility] Interpretation and review of laboratory results Abnormal [facility] CBC WITH AUTO DIFFERENTIALon 06-02-2019 Basophils (Bld) [#/Vol] 0.05 10*3/uL [facility] Basophils/100 WBC (Bld) 0.7 % [facility] Eosinophils (Bld) [#/Vol] 0.16 10*3/uL [facility] Eosinophils/100 WBC (Bld) 2.2 % [facility] Erythrocyte distribution width (RBC) [Entitic vol] 13.6 % 11.6 - 14.8 % [facility] Hematocrit (Bld) [Volume fraction] 43.5 % 36 - 46 % [facility] Hemoglobin (Bld) [Mass/Vol] 14.3 g/dL 12 - 16 g/dL [facility] Immature granulocytes (Bld) [#/Vol] 0.05 10*3/uL [facility] Immature granulocytes/100 WBC (Bld) 0.70 % [facility] Comment on above: The IG parameter is the percentage of metamyelocytes, myelocytes, and promyelocytes. Lymphocytes (Bld) [#/Vol] 1.84 10*3/uL [facility] Lymphocytes/100 WBC (Bld) 25.4 % [facility] MCH (RBC) [Entitic mass] 27.6 pg 26 - 34 pg [facility] MCHC (RBC) [Mass/Vol] 32.9 g/dL 31 - 37 g/dL [facility] MCV (RBC) [Entitic vol] 84.0 fL 80 - 100 fL [facility] Monocytes (Bld) [#/Vol] 0.54 10*3/uL [facility] Monocytes/100 WBC (Bld) 7.5 % [facility] Neutrophils (Bld) [#/Vol] 4.60 10*3/uL [facility] Neutrophils/100 WBC (Bld) 63.5 % [facility] Nucleated RBC (Bld) [#/Vol] 0.00 10*3/uL [facility] Nucleated RBC/100 WBC (Bld) [Ratio] 0.0 % [facility] Platelet mean volume (Bld) [Entitic vol] 9.5 fL 9 - 15.5 fL [facility] Platelets (Bld) [#/Vol] 223 10*3/uL [facility] RBC (Bld) [#/Vol] 5.18 10*6/uL [facility] WBC (Bld) [#/Vol] 7.24 10*3/uL [facility] Comprehensive Metabolic Pane surya 06-02-2019 Albumin [Mass/Vol] 3.6 g/dL 3.2 - 5.2 g/dL [facility] ALP [Catalytic activity/Vol] 98 U/L 40 - 150 U/L [facility] ALT [Catalytic activity/Vol] 17 U/L 14 - 65 U/L [facility] Anion gap [Moles/Vol] 12 mmol/L 10 - 2 0 mmol/L [facility] AST [Catalytic activity/Vol] 15 U/L 0 - 45 U/L [facility] Bilirubin [Mass/Vol] 0.6 mg/dL 0 - 1.3 mg/dL [facility] Calcium [Mass/Vol] 8.9 mg/dL 8.4 - 10. 2 mg/dL [facility] Chloride [Moles/Vol] 99 mmol/L 98 - 10 8 mmol/L [facility] Creatinine [Mass/Vol] 0.79 mg/dL 0.6 - 1.2 mg/dL [facility] GFR/1.73 sq M predicted among non-blacks MDRD (S/P/Bld) [Vol rate/Area] The eGFR should be used for monitoring renal function only and not for medication dosing. [facility] GFR/1.73 sq M.predicted CKD-EPI (S/P/Bld) [Vol rate/Area] 76 >=60 mL/min/1.73 m2 [facility] Glucose [Mass/Vol] 121 mg/dL High 65 - 99 mg/dL [facility] HCO3 [Moles/Vol] 31 mmol/L 21 - 32 mmol/L [facility] Interpretation and review of laboratory results Abnormal [facility] Potassium [Moles/Vol] 2.8 mmol/L Low 3.5 - 5.1 mmol/L [facility] Protein [Mass/Vol] 7.1 g/dL 6 - 8 g/dL [facility] Sodium [Moles/Vol] 139 mmol/L 135 - 145 mmol/L [facility] Urea nitrogen [Mass/Vol] 14 mg/dL 8 - 25 mg/dL [facility] Urea nitrogen/Creatinine [Mass ratio] 17.7 mg/mg [facility] POC Glucoseon 06-02-2019 Glucose [Mass/Vol] 134 mg/dL High 65 - 99 mg/dL [facility] Interpretation and review of laboratory results Abnormal [facility] Glucose [Mass/Vol] 125 mg/dL High 65 - 99 mg/dL [facility] Interpretation and review of laboratory results Abnormal [facility] MRI SPINE LUMBAR WITHOUT CON TRASTon 01-30-2019 MRI SPINE LUMBAR WITHOUT CONTRAST MRI lumbar SPINE without contrast HISTORY: Evaluate for disc extrusion, nerve root compression, facet osteoarthritis. Lumbar facet joint pain, osteoarthritis of facet joint. Degenerative disc disease. Chronic low back pain. COMPARISON: Lumbar spine radiograph 09/13/2018. TECHNIQUE: Multiplanar, multisequence MRI images of the lumbar spine were obtained without the administration of intravenous gadolinium contrast. FINDINGS: There is 3 mm degenerative grade 1 anterolisthesis at L4-L5. Remaining vertebral bodies are anatomically aligned. No compression fractures. Scattered mild disc space narrowing throughout the lumbar spine. Conus medullaris terminates at L2. No abnormal signal in the distal spinal cord and conus. L5-S1: Disc bulge with a superimposed central to left paracentral disc extrusion with inferior migration. Mild facet arthropathy and ligamentum flavum hypertrophy. There is no spinal canal stenosis. There is severe right and mild to moderate left foraminal stenosis. L4-L5: Broad-based disc protrusion. Severe facet arthropathy, ligamentum flavum hypertrophy. Grade 1 anterolisthesis. Severe spinal canal and bilateral lateral recess stenosis. Asymmetric mild to moderate left foraminal stenosis. L3-L4: Broad-based disc protrusion and moderate facet arthropathy. Moderate spinal canal and bilateral lateral recess stenosis. Moderate bilateral foraminal stenosis. L2-L3: Disc bulge with mild thecal sac effacement. No foraminal stenosis. L1-L2: There is a disc bulge, without spinal canal or foraminal stenosis. T12-L1: No spinal canal or significant neural foraminal stenosis. Multiple small retroperitoneal lymph nodes are visualized. IMPRESSION: 1. At L4-L5, there is degenerative grade 1 anterolisthesis secondary to facet arthropathy. There is severe spinal canal and bilateral lateral recess stenosis, and asymmetric mild to moderate left foraminal stenosis as described. 2. At L3-L4, there is moderate spinal canal stenosis and moderate bilateral foraminal stenosis as described. 3. At L5-S1, there is severe right and [id number] left neural foraminal stenosis as described. 4. Multiple small retroperitoneal lymph nodes are visualized, which are nonspecific. Normal [facility] IMPRESSION: 1. At L4 -L5, there is degenerative grade 1 anterolisthesis secondary to facet arthropathy. There is severe spinal canal and bilateral lateral recess stenosis, and asymmetric mild to moderate left foraminal stenosis as described. 2. At L3-L4, there is moderate spinal canal stenosis and moderate bilateral foraminal stenosis as described. 3. At L5-S1, there is severe right and [id number] left neural foraminal stenosis as described. 4. Multiple small retroperitoneal lymph nodes are visualized, which are nonspecific. OPPRTUNITY MRI lumbar SPINE wit hout contrast HISTORY: Evaluate for disc extrusion, nerve root compression, facet osteoarthritis. Lumbar facet joint pain, osteoarthritis of facet joint. Degenerative disc disease. Chronic low back pain. COMPARISON: Lumbar spine radiograph 09/13/2018. TECHNIQUE: Multiplanar, multisequence MRI images of the lumbar spine were obtained without the administration of intravenous gadolinium contrast. FINDINGS: There is 3 mm degenerative grade 1 anterolisthesis at L4-L5. Remaining vertebral bodies are anatomically aligned. No compression fractures. Scattered mild disc space narrowing throughout the lumbar spine. Conus medullaris terminates at L2. No abnormal signal in the distal spinal cord and conus. L5-S1: Disc bulge with a superimposed central to left paracentral disc extrusion with inferior migration. Mild facet arthropathy and ligamentum flavum hypertrophy. There is no spinal canal stenosis. There is severe right and mild to moderate left foraminal stenosis. L4-L5: Broad-based disc protrusion. Severe facet arthropathy, ligamentum flavum hypertrophy. Grade 1 anterolisthesis. Severe spinal canal and bilateral lateral recess stenosis. Asymmetric mild to moderate left foraminal stenosis. L3-L4: Broad-based disc protrusion and moderate facet arthropathy. Moderate spinal canal and bilateral lateral recess stenosis. Moderate bilateral foraminal stenosis. L2-L3: Disc bulge with mild thecal sac effacement. No foraminal stenosis. L1-L2: There is a disc bulge, without spinal canal or foraminal stenosis. T12-L1: No spinal canal or significant neural foraminal stenosis. Multiple small retroperitoneal lymph nodes are visualized. OPPRTUNITY User, Interfaces - 01/30/2019 10:53 AM EDT MRI lumbar SPINE without contrast HISTORY: Evaluate for disc extrusion, nerve root compression, facet osteoarthritis. Lumbar facet joint pain, osteoarthritis of facet joint. Degenerative disc disease. Chronic low back pain. COMPARISON: Lumbar spine radiograph 09/13/2018. TECHNIQUE: Multiplanar, multisequence MRI images of the lumbar spine were obtained without the administration of intravenous gadolinium contrast. FINDINGS: There is 3 mm degenerative grade 1 anterolisthesis at L4-L5. Remaining vertebral bodies are anatomically aligned. No compression fractures. Scattered mild disc space narrowing throughout the lumbar spine. Conus medullaris terminates at L2. No abnormal signal in the distal spinal cord and conus. L5-S1: Disc bulge with a superimposed central to left paracentral disc extrusion with inferior migration. Mild facet arthropathy and ligamentum flavum hypertrophy. There is no spinal canal stenosis. There is severe right and mild to moderate left foraminal stenosis. L4-L5: Broad-based disc protrusion. Severe facet arthropathy, ligamentum flavum hypertrophy. Grade 1 anterolisthesis. Severe spinal canal and bilateral lateral recess stenosis. Asymmetric mild to moderate left foraminal stenosis. L3-L4: Broad-based disc protrusion and moderate facet arthropathy. Moderate spinal canal and bilateral lateral recess stenosis. Moderate bilateral foraminal stenosis. L2-L3: Disc bulge with mild thecal sac effacement. No foraminal stenosis. L1-L2: There is a disc bulge, without spinal canal or foraminal stenosis. T12-L1: No spinal canal or significant neural foraminal stenosis. Multiple small retroperitoneal lymph nodes are visualized. IMPRESSION IMPRESSION: 1. At L4-L5, there is degenerative grade 1 anterolisthesis secondary to facet arthropathy. There is severe spinal canal and bilateral lateral recess stenosis, and asymmetric mild to moderate left foraminal stenosis as described. 2. At L3-L4, there is moderate spinal canal stenosis and moderate bilateral foraminal stenosis as described. 3. At L5-S1, there is severe right and [id number] left neural foraminal stenosis as described. 4. Multiple small retroperitoneal lymph nodes are visualized, which are nonspecific. [facility] 09-22-2018 ALT [Catalytic activity/Vol] 17 U/L Normal 14-54 [facility] Comment on above: Performed By: #### A LT, AST #### Testing performed at [address] [address] [place] 09-22-2018 AST [Catalytic activity/Vol] 22 U/L Normal 15-41 [facility] Comment on above: Performed By: #### A LT, AST #### Testing performed at [address] [place] [address] XR HIP WITH PELVIS LEFTon XR HIP WITH PELVIS LEFT LEFT HIP WITH AP PELVIS, 09/16/2018 INDICATION: Left hip pain. COMPARISON: None. FINDINGS: AP view of the pelvis and AP and frogleg lateral views of the left hip were obtained. Three radiographs in total. Exam is slightly limited due to body habitus. There is no acute fracture or dislocation. Osseous structures appear appropriately mineralized. Pelvic ring appears intact. There is mild left hip joint space narrowing. Mild enthesopathic change of the greater trochanter. IMPRESSION: 1. No acute osseous abnormality. 2. Mild left hip osteoarthrosis. 3. Mild enthesopathic change of the greater trochanter. Normal [facility] IMPRESSION: 1. No ac [place] osseous abnormality. 2. Mild left hip osteoarthrosis. 3. Mild enthesopathic change of the greater trochanter. [facility] LEFT HIP WITH AP PEL VIS, 09/16/2018 INDICATION: Left hip pain. COMPARISON: None. FINDINGS: AP view of the pelvis and AP and frogleg lateral views of the left hip were obtained. Three radiographs in total. Exam is slightly limited due to body habitus. There is no acute fracture or dislocation. Osseous structures appear appropriately mineralized. Pelvic ring appears intact. There is mild left hip joint space narrowing. Mild enthesopathic change of the greater trochanter. [facility] - [facility]/16/2018 4:30 PM EDT LEFT HIP WITH AP PELVIS, 09/16/2018 INDICATION: Left hip pain. COMPARISON: None. FINDINGS: AP view of the pelvis and AP and frogleg lateral views of the left hip were obtained. Three radiographs in total. Exam is slightly limited due to body habitus. There is no acute fracture or dislocation. Osseous structures appear appropriately mineralized. Pelvic ring appears intact. There is mild left hip joint space narrowing. Mild enthesopathic change of the greater trochanter. IMPRESSION IMPRESSION: 1. No acute osseous abnormality. 2. Mild left hip osteoarthrosis. 3. Mild enthesopathic change of the greater trochanter. OPPRTUNITY XR SPINE LUMBOSACRAL 5 VIEWS on 09-16-2018 XR SPINE LUMBOSACRAL 5 VIEWS LUMBOSACRAL SPINE, 09/16/2018 8:56 AM EDT INDICATION: Low back pain. COMPARISON: None. TECHNIQUE: AP, lateral neutral, lateral flexion, lateral extension, and coned-down lateral views of the lumbar spine were obtained. 5 radiographs in total. FINDINGS: There are five non rib-bearing vertebral bodies. There is no evidence of fracture or malalignment. There is moderate multilevel degenerative disc disease throughout the lumbar spine, most prominent at L5-S1. Degenerative facet arthropathy is present in the lower lumbar spine. There is 3 mm anterolisthesis of L4 on L5 which is likely degenerative. No significant instability on flexion or extension views. Sacroiliac joints are unremarkable. Bone mineralization is within normal limits. IMPRESSION: 1. No acute fracture, malalignment, or instability. 2. Moderate multilevel spondylosis with 3 mm degenerative anterolisthesis of L4 on L5. Normal [facility] IMPRESSION: 1. No ac [place] fracture, malalignment, or instability. 2. Moderate multilevel spondylosis with 3 mm degenerative anterolisthesis of L4 on L5. [facility] LUMBOSACRAL SPINE, 09/16/2018 8:56 AM EDT INDICATION: Low back pain. COMPARISON: None. TECHNIQUE: AP, lateral neutral, lateral flexion, lateral extension, and coned-down lateral views of the lumbar spine were obtained. 5 radiographs in total. FINDINGS: There are five non rib-bearing vertebral bodies. There is no evidence of fracture or malalignment. There is moderate multilevel degenerative disc disease throughout the lumbar spine, most prominent at L5-S1. Degenerative facet arthropathy is present in the lower lumbar spine. There is 3 mm anterolisthesis of L4 on L5 which is likely degenerative. No significant instability on flexion or extension views. Sacroiliac joints are unremarkable. Bone mineralization is within normal limits. [facility] User, Interfaces - 09/16/2018 4:30 PM EDT LUMBOSACRAL SPINE, 09/16/2018 8:56 AM EDT INDICATION: Low back pain. COMPARISON: None. TECHNIQUE: AP, lateral neutral, lateral flexion, lateral extension, and coned-down lateral views of the lumbar spine were obtained. 5 radiographs in total. FINDINGS: There are five non rib-bearing vertebral bodies. There is no evidence of fracture or malalignment. There is moderate multilevel degenerative disc disease throughout the lumbar spine, most prominent at L5-S1. Degenerative facet arthropathy is present in the lower lumbar spine. There is 3 mm anterolisthesis of L4 on L5 which is likely degenerative. No significant instability on flexion or extension views. Sacroiliac joints are unremarkable. Bone mineralization is within normal limits. IMPRESSION IMPRESSION: 1. No acute fracture, malalignment, or instability. 2. Moderate multilevel spondylosis with 3 mm degenerative anterolisthesis of L4 on L5. [facility] Glucose, POCon 07-08-2018 Glucose mass conc 109 mg/dL Normal 80-115 [facility] Comment on above: Performed By: #### G LUX #### Unless otherwise noted, all testing performed by [place] [address] CLIA: [id number] [employer]: Lux Jones M.D. SURGon 05-17-2018 SURG [id number] Patient Name: LIZ WADSWORTH Source Skin cyst, Left Posterior Neck Clinical History ? 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 HW Gross Description The specimen received in formalin is a whitish-weaver fragment measuring 1.9 x 1.2 x 1.5 cm. Margins are inked black. Serially sectioned. Totally submitted in one cassette. CS;lat (MARK/lt) Electronically Signed By Henry Yee MD , Pathologist (Case signed 05/19/2018) Normal [facility] Glucose, POCon 03-29-2018 Glucose mass conc 110 mg/dL Normal 80-115 [facility] Comment on above: Performed By: #### G LUX #### Unless otherwise noted, all testing performed by [place] [address] CLIA: [id number] [employer]: Lux Jones M.D. Glucose mass conc 110 mg/dL Normal 80-115 [facility] Comment on above: Performed By: #### G LUX #### Unless otherwise noted, all testing performed by [place] [address] CLIA: [id number] [employer]: Lux Jones M.D. CBC and Differentialon 12-30 Basophils Auto #/vol (Bld) 0.1 K/mcL Invalid Interpretation Code 0 - 0.2 [facility] Basophils/100 WBC Auto (Bld) 0.9 % Invalid Interpretation Code [facility] Eosinophils 0.2 K/mcL Invalid Interpretation Code 0 - 0.5 [facility] Eosinophils/100 leukocytes 2.9 % Invalid Interpretation Code [facility] Erythrocyte distribution width Auto Ratio (RBC) 14.2 % Invalid Interpretation Code 10 - 14.4 % [facility] Erythrocytes (RBC) 5.26 M/mcL High 3.7 - 5.[address] [facility] Hematocrit (HCT) 44.2 % Invalid Interpretation Code 34.4 - 44.8 % [facility] Hemoglobin mass conc (Bld) 14.6 g/dL Normal 11.6-15.4 [facility] Comment on above: Performed By: #### C BCDIF, CMET, TSH, LIPID, HBA1C #### Unless otherwise noted, all testing performed by [place] [address] CLIA: [id number] [employer]: Lux Jones M.D. Interpretation and review of laboratory results Abnormal Invalid Interpretation Code [facility] Lymphocytes 2.3 K/mcL Invalid Interpretation Code 1.0 - 3.7 [facility] Lymphocytes/100 leukocytes 28.2 % Invalid Interpretation Code [facility] MCH 27.8 pg Low 27.9 - 33.9 pg [facility] MCHC mass conc (RBC) 33.1 g/dL Invalid Interpretation Code 33.1 - 35.1 g/dL [facility] MCV 84 fL Invalid Interpretation Code 82.6 - 98.9 [facility] Monocytes 0.5 K/mcL Invalid Interpretation Code 0.1 - 0.6 [facility] Monocytes/100 leukocytes 6.4 % Invalid Interpretation Code [facility] Neutrophils 5.0 K/mcL Invalid Interpretation Code 1.2 - 6.9 [facility] Platelet mean volume (PMV) 8 fL Invalid Interpretation Code 7.0 - 10.6 [facility] Platelets 249 K/mcL Invalid Interpretation Code 162 - 402 [facility] Segmented Neut 61.6 % Invalid Interpretation Code [facility] WBC (Leukocytes) 8.1 K/mcL Invalid Interpretation Code 3.4 - 10.6 [facility] CBC with Diffon 12-30-2017 Basophils #/vol (Bld) 0.1 K/mcL Normal 0-0.2 [facility] Comment on above: Performed By: #### C BCDIF, CMET, TSH, LIPID, HBA1C #### Unless otherwise noted, all testing performed by [place] [address] CLIA: [id number] [employer]: Lux Jones M.D. Basophils/100 WBC (Bld) 0.9 % Normal [facility] Comment on above: Performed By: #### C BCDIF, CMET, TSH, LIPID, HBA1C #### Unless otherwise noted, all testing performed by [place] [address] CLIA: [id number] [employer]: Lux Jones M.D. Eosinophils #/vol (Bld) 0.2 K/mcL Normal 0-0.5 [facility] Comment on above: Performed By: #### C BCDIF, CMET, TSH, LIPID, HBA1C #### Unless otherwise noted, all testing performed by [place] [address] CLIA: [id number] [employer]: Lux Jones M.D. Eosinophils/100 WBC (Bld) 2.9 % Normal [facility] Comment on above: Performed By: #### C BCDIF, CMET, TSH, LIPID, HBA1C #### Unless otherwise noted, all testing performed by [place] [address] CLIA: [id number] [employer]: Lux Jones M.D. Erythrocyte distribution width Ratio (RBC) 14.2 % Normal 10.0-14.4 [facility] Comment on above: Performed By: #### C BCDIF, CMET, TSH, LIPID, HBA1C #### Unless otherwise noted, all testing performed by [place] [phone] CLIA: [id number] [employer]: Lux Jones M.D. Hematocrit Volume Fraction (Bld) 44.2 % Normal 34.4-44.8 [facility] Comment on above: Performed By: #### C BCDIF, CMET, TSH, LIPID, HBA1C #### Unless otherwise noted, all testing performed by [place] [phone] CLIA: [id number] [employer]: Lux Jones M.D. Lymphocytes #/vol (Bld) 2.3 K/mcL Normal 1.0-3.7 [facility] Comment on above: Performed By: #### C BCDIF, CMET, TSH, LIPID, HBA1C #### Unless otherwise noted, all testing performed by [place] [phone] CLIA: [id number] [employer]: Lux Jones M.D. Lymphocytes/100 WBC (Bld) 28.2 % Normal [facility] Comment on above: Performed By: #### C BCDIF, CMET, TSH, LIPID, HBA1C #### Unless otherwise noted, all testing performed by [place] [address] CLIA: [id number] [employer]: Lux Jones M.D. MCH Entitic mass (RBC) 27.8 pg Low 27.9-33.9 [facility] Comment on above: Performed By: #### C BCDIF, CMET, TSH, LIPID, HBA1C #### Unless otherwise noted, all testing performed by [place] [address] CLIA: [id number] [employer]: Lux Jones M.D. MCHC mass conc (RBC) 33.1 g/dL Normal 33.1-35.1 [facility] Comment on above: Performed By: #### C BCDIF, CMET, TSH, LIPID, HBA1C #### Unless otherwise noted, all testing performed by [place] [address] CLIA: [id number] [employer]: Lux Jones M.D. MCV Entitic volume (RBC) 84.0 fL Normal 82.6-98.9 [facility] Comment on above: Performed By: #### C BCDIF, CMET, TSH, LIPID, HBA1C #### Unless otherwise noted, all testing performed by [place] [address] CLIA: [id number] [employer]: Lux Jones M.D. Monocytes #/vol (Bld) 0.5 K/mcL Normal 0.1-0.6 [facility] Comment on above: Performed By: #### C BCDIF, CMET, TSH, LIPID, HBA1C #### Unless otherwise noted, all testing performed by [place] [address] CLIA: [id number] [employer]: Lux Jones M.D. Monocytes/100 WBC (Bld) 6.4 % Normal [facility] Comment on above: Performed By: #### C BCDIF, CMET, TSH, LIPID, HBA1C #### Unless otherwise noted, all testing performed by [place] [address] CLIA: [id number] [employer]: Lux Jones M.D. Neutrophils #/vol (Bld) 5.0 K/mcL Normal 1.2-6.9 [facility] Comment on above: Performed By: #### C BCDIF, CMET, TSH, LIPID, HBA1C #### Unless otherwise noted, all testing performed by [place] [address] CLIA: [id number] [employer]: Lux Jones M.D. Platelet mean volume Entitic volume (Bld) 8.0 fL Normal 7.0-10.6 [facility] Comment on above: Performed By: #### C BCDIF, CMET, TSH, LIPID, HBA1C #### Unless otherwise noted, all testing performed by [place] [address] CLIA: [id number] [employer]: Lux Jones M.D. Platelets #/vol (Bld) 249 K/mcL Normal 162-402 [facility] Comment on above: Performed By: #### C BCDIF, CMET, TSH, LIPID, HBA1C #### Unless otherwise noted, all testing performed by [place] [address] CLIA: [id number] [employer]: Lux Jones M.D. RBC #/vol (Bld) 5.26 M/mcL High 3.7-5.0 [facility] Comment on above: Performed By: #### C BCDIF, CMET, TSH, LIPID, HBA1C #### Unless otherwise noted, all testing performed by [address] [place], [place] [address] CLIA: [id number] [employer]: Lux Jones M.D. Segmented Neut % 61.6 % Normal [facility] Comment on above: Performed By: #### C BCDIF, CMET, TSH, LIPID, HBA1C #### Unless otherwise noted, all testing performed by [place] [address] CLIA: [id number] [employer]: Lux Jones M.D. WBC #/vol (Bld) 8.1 K/mcL Normal 3.4-10.6 [facility] Comment on above: Performed By: #### C BCDIF, CMET, TSH, LIPID, HBA1C #### Unless otherwise noted, all testing performed by [place] [address] CLIA: [id number] [employer]: Lux Jones M.D. [facility] Metabolic [facility] 12-30-2017 Alanine aminotransferase (ALT) 24 U/L Normal 14-65 [facility] Comment on above: This test result lidia ht be falsely depressed or falsely elevated on samples drawn from patients taking Sulfasalazine and Sulfapyridine. Venipuncture should occur prior to taking either of these drugs. Result Comment: This test result might be falsely depressed or falsely elevated on samples drawn from patients taking Sulfasalazine and Sulfapyridine. Venipuncture should occur prior to taking either of these drugs. Performed By: #### C BCDIF, CMET, TSH, LIPID, HBA1C #### Unless otherwise noted, all testing performed by [place] [address] CLIA: [id number] [employer]: Lux Jones M.D. Albumin 3.8 g/dL Normal 3.2-5.2 [facility] Comment on above: Performed By: #### C BCDIF, CMET, TSH, LIPID, HBA1C #### Unless otherwise noted, all testing performed by [place] [address] CLIA: [id number] [employer]: Lux Jones M.D. Alkaline phosphatase (ALP) 92 U/L Normal 40-150 [facility] Comment on above: Performed By: #### C BCDIF, CMET, TSH, LIPID, HBA1C #### Unless otherwise noted, all testing performed by [place] [address] CLIA: [id number] [employer]: Lux Jones M.D. Aspartate aminotransferase (AST) 17 U/L Normal 0-45 [facility] Comment on above: This test result lidia ht be falsely depressed or falsely elevated on samples drawn from patients taking Sulfasalazine and Sulfapyridine. Venipuncture should occur prior to taking either of these drugs. Result Comment: This test result might be falsely depressed or falsely elevated on samples drawn from patients taking Sulfasalazine and Sulfapyridine. Venipuncture should occur prior to taking either of these drugs. Performed By: #### C BCDIF, CMET, TSH, LIPID, HBA1C #### Unless otherwise noted, all testing performed by [place] [address] CLIA: [id number] [employer]: Lux Jones M.D. Bilirubin (total) 0.5 mg/dL Normal 0.3-1.2 [facility] Comment on above: Performed By: #### C BCDIF, CMET, TSH, LIPID, HBA1C #### Unless otherwise noted, all testing performed by [place] [address] CLIA: [id number] [employer]: Lux Jones M.D. Calcium 9.3 mg/dL Normal 8.4-10.2 [facility] Comment on above: Performed By: #### C BCDIF, CMET, TSH, LIPID, HBA1C #### Unless otherwise noted, all testing performed by [place] [address] CLIA: [id number] [employer]: Lux Jones M.D. Chloride 104 mmol/L Normal 98-108 [facility] Comment on above: Performed By: #### C BCDIF, CMET, TSH, LIPID, HBA1C #### Unless otherwise noted, all testing performed by [place] [address] CLIA: [id number] [employer]: Lux Jones M.D. CO2 30 mmol/L Normal 21-32 [facility] Comment on above: Performed By: #### C BCDIF, CMET, TSH, LIPID, HBA1C #### Unless otherwise noted, all testing performed by [place] [address] CLIA: [id number] [employer]: Lux Jones M.D. Creatinine 0.86 mg/dL Normal 0.60-1.20 [facility] Comment on above: Performed By: #### C BCDIF, CMET, TSH, LIPID, HBA1C #### Unless otherwise noted, all testing performed by [place] [address] CLIA: [id number] [employer]: Lxu Jones M.D. eGFR (black) mL/min/{1.73_m2} Normal [facility] Comment on above: GFR Calc Result Comment: Afri can Turkish GFR Calc Performed By: #### C BCDIF, CMET, TSH, LIPID, HBA1C #### Unless otherwise noted, all testing performed by [address] [place], [place] [address] CLIA: [id number] [employer]: Lux Jones M.D. eGFR (non-black) mL/min/{1.73_m2} Normal [facility] Comment on above: Non- GFR Calc eGFR is an estimated Glomerular Filtration Rate based on the value of the patient's serum creatinine. In outpatients, eGFR should be used as a helpful tool in screening for CKD. In inpatients or patients with acute renal failure, eGFR represents the GFR at the moment of the draw and should be used with caution. Result Comment: Non- GFR Calc eGFR is an estimated Glomerular Filtration Rate based on the value of the patient's serum creatinine. In outpatients, eGFR should be used as a helpful tool in screening for CKD. In inpatients or patients with acute renal failure, eGFR represents the GFR at the moment of the draw and should be used with caution. Performed By: #### C BCDIF, CMET, TSH, LIPID, HBA1C #### Unless otherwise noted, all testing performed by [place] [address] CLIA: [id number] [employer]: Lux Jones M.D. Glucose mass conc 104 mg/dL High 70-99 [facility] Comment on above: This test result lidia ht be falsely depressed or falsely elevated on samples drawn from patients taking Sulfasalazine and Sulfapyridine. Venipuncture should occur prior to taking either of these drugs. Result Comment: This test result might be falsely depressed or falsely elevated on samples drawn from patients taking Sulfasalazine and Sulfapyridine. Venipuncture should occur prior to taking either of these drugs. Performed By: #### C BCDIF, CMET, TSH, LIPID, HBA1C #### Unless otherwise noted, all testing performed by [place] [address] CLIA: [id number] [employer]: Lux Jones M.D. Potassium molar conc 3.8 mmol/L Normal 3.5-5.1 [facility] Comment on above: Performed By: #### C BCDIF, CMET, TSH, LIPID, HBA1C #### Unless otherwise noted, all testing performed by [place] [address] CLIA: [id number] [employer]: Lux Jones M.D. Protein 7.3 g/dL Normal 6.0-8.0 [facility] Comment on above: Performed By: #### C BCDIF, CMET, TSH, LIPID, HBA1C #### Unless otherwise noted, all testing performed by [place] [address] CLIA: [id number] [employer]: Lux Jones M.D. Sodium 141 mmol/L Normal 135-145 [facility] Comment on above: Performed By: #### C BCDIF, CMET, TSH, LIPID, HBA1C #### Unless otherwise noted, all testing performed by [place] [id number] CLIA: [id number] [employer]: Lux Jones M.D. Urea nitrogen 12 mg/dL Normal 8-25 [facility] Comment on above: Performed By: #### C BCDIF, CMET, TSH, LIPID, HBA1C #### Unless otherwise noted, all testing performed by [place] [id number] CLIA: [id number] [employer]: Lux Jones M.D. Hemoglobin A1con 12-30-2017 Hemoglobin A1c/Hemoglobin.total mass fraction (Bld) 6.0 % Normal 4.1-6.5 [facility] Comment on above: Performed By: #### C BCDIF, CMET, TSH, LIPID, HBA1C #### Unless otherwise noted, all testing performed by [address] [address] CLIA: [id number] [employer]: Lux Jones M.D. Lipid Panelon 12-30-2017 Cholesterol 210 mg/dL High 100-199 [facility] Comment on above: Performed By: #### C BCDIF, CMET, TSH, LIPID, HBA1C #### Unless otherwise noted, all testing performed by [place] [address] CLIA: [id number] [employer]: Lux Jones M.D. Cholesterol in LDL mass conc 94 mg/dL Normal 10-150 [facility] Comment on above: Performed By: #### C BCDIF, CMET, TSH, LIPID, HBA1C #### Unless otherwise noted, all testing performed by [place] [address] CLIA: [id number] [employer]: Lux Jones M.D. Cholesterol in VLDL mass conc 77 mg/dL High 5-40 [facility] Comment on above: Performed By: #### C BCDIF, CMET, TSH, LIPID, HBA1C #### Unless otherwise noted, all testing performed by [place] [address] CLIA: [id number] [employer]: Lux Jones M.D. Cholesterol to HDL Ratio 5.3 {ratio} High 3.2-5.0 [facility] Comment on above: Female Coronary Hear t Disease Risk Factor (CHDRF): Average risk= 4.4 1/2 Average risk= 3.3 2 times Average risk= 7.1 Result Comment: Fema le Coronary Heart Disease Risk Factor (CHDRF): Average risk= 4.4 1/2 Average risk= 3.3 2 times Average risk= 7.1 Performed By: #### C BCDIF, CMET, TSH, LIPID, HBA1C #### Unless otherwise noted, all testing performed by [place] [address] CLIA: [id number] [employer]: Lux Jones M.D. HDL Cholesterol 39 mg/dL Low 40-59 [facility] Comment on above: Performed By: #### C BCDIF, CMET, TSH, LIPID, HBA1C #### Unless otherwise noted, all testing performed by [place] [address] CLIA: [id number] [employer]: Lux Jones M.D. LDL Cholesterol 94 mg/dL Invalid Interpretation Code 10 - 150 mg/dL [facility] Triglyceride 385 mg/dL High 25-120 [facility] Comment on above: Performed By: #### C BCDIF, CMET, TSH, LIPID, HBA1C #### Unless otherwise noted, all testing performed by [place] [address] CLIA: [id number] [employer]: Lux Jones M.D. TSHon 12-30-2017 Thyroid stimulating hormone (TSH) 1.95 uIU/mL Invalid Interpretation Code 0.320 - 5.000 [facility] Comment on above: Samples from patient s routinely receiving high dose biotin therapy (100-300 mg/day) may show falsely decreased results. Please correlate clinically. Thyrotropin Qn 1.95 uIU/mL Normal 0.320-5.000 [facility] Comment on above: Result Comment: Samp les from patients routinely receiving high dose biotin therapy (100-300 mg/day) may show falsely decreased results. Please correlate clinically. Performed By: #### C BCDIF, CMET, TSH, LIPID, HBA1C #### Unless otherwise noted, all testing performed by [place] [address] CLIA: [id number] [employer]: Lux Robert, M.D. CBC and Differentialon 02-18 Basophils 0.9 % Invalid Interpretation Code [facility] Basophils 0.1 K/mcL Invalid Interpretation Code 0 - 0.2 [facility] Eosinophils 0.2 K/mcL Invalid Interpretation Code 0 - 0.5 [facility] Erythrocytes (RBC) 5.34 M/mcL High 3.7 - 5.[address] [facility] Hematocrit (HCT) 45.1 % High 34.4 - 44.8 % [facility] Hemoglobin (HGB) 15.2 g/dL Invalid Interpretation Code 11.6 - 15.4 g/dL [facility] Interpretation and review of laboratory results Abnormal Invalid Interpretation Code [facility] Lymphocytes 2.1 K/mcL Invalid Interpretation Code 1.0 - 3.7 [facility] MCH 28.4 pg Invalid Interpretation Code 27.9 - 33.9 pg [facility] MCHC 33.6 g/dL Invalid Interpretation Code 33.1 - 35.1 g/dL [facility] MCV 84.5 fL Invalid Interpretation Code 82.6 - 98.9 [facility] Monocytes 0.5 K/mcL Invalid Interpretation Code 0.1 - 0.6 [facility] Neutrophils 5.0 K/mcL Invalid Interpretation Code 1.2 - 6.9 [facility] Platelet mean volume (PMV) 8.3 fL Invalid Interpretation Code 7.0 - 10.6 [facility] Platelets 251 K/mcL Invalid Interpretation Code 162 - 402 [facility] RDW-CA 14.1 % Invalid Interpretation Code 10 - 14.4 % [facility] Segmented Neut 63.9 % Invalid Interpretation Code [facility] T8 suppressor/100 cells 1.9 10*3/uL Invalid Interpretation Code [facility] T8 suppressor/100 cells 26.6 10*3/uL Invalid Interpretation Code [facility] T8 suppressor/100 cells 6.7 10*3/uL Invalid Interpretation Code [facility] WBC (Leukocytes) 7.9 K/mcL Invalid Interpretation Code 3.4 - 10.6 [facility] Comprehensive Metabolic Pane surya 02-18-2017 Alanine aminotransferase (ALT) 24 U/L Invalid Interpretation Code 14 - 65 U/L [facility] Albumin 3.6 g/dL Invalid Interpretation Code 3.2 - 5.2 g/dL [facility] Alkaline phosphatase (ALP) 108 U/L Invalid Interpretation Code 40 - 150 U/L [facility] Aspartate aminotransferase (AST) 20 U/L Invalid Interpretation Code 0 - 45 U/L [facility] Calcium 9.1 mg/dL Invalid Interpretation Code 8.4 - 10.2 mg/dL [facility] Chloride 98 mmol/L Invalid Interpretation Code 98 - 108 mmol/L [facility] CO2 30 mmol/L Invalid Interpretation Code 21 - 32 mmol/L [facility] Creatinine 0.96 mg/dL Invalid Interpretation Code 0.6 - 1.2 mg/dL [facility] eGFR (black) mL/min/{1.73_m2} Invalid Interpretation Code ml/min/1.73s q.m [facility] eGFR (non-black) 58 mL/min/{1.73_m2} Low >60 [facility] Glucose 120 mg/dL High 70 - 99 mg/dL [facility] Potassium 3.4 mmol/L Low 3.5 - 5.1 mmol/L [facility] Protein 7.5 g/dL Invalid Interpretation Code 6 - 8 g/dL [facility] Sodium 138 mmol/L Invalid Interpretation Code 135 - 145 mmol/L [facility] Urea nitrogen 18 mg/dL Invalid Interpretation Code 8 - 25 mg/dL [facility] Urine, bilirubin presence 0.5 mg/dL Invalid Interpretation Code 0.3 - 1.2 mg/dL [facility] Hemoglobin A1con 02-18-2017 HbA1c 5.8 % Invalid Interpretation Code 4.1 - 6.5 % [facility] Lipid Panelon 02-18-2017 Cholesterol 257 mg/dL High 100 - 199 mg/dL [facility] Cholesterol to HDL Ratio 5.8 {ratio} High 3.2 - 5.0 [facility] HDL Cholesterol 44 mg/dL Invalid Interpretation Code 40 - 59 mg/dL [facility] LDL Cholesterol See comment. Invalid Interpretation Code mg/dL [facility] Triglyceride 411 mg/dL High 25 - 120 mg/dL [facility] VLDL See comment. Invalid Interpretation Code mg/dL [facility] Vital Signs Date Time Vital Sign Value Performing Clinician Facility 03-28-2025 14:21-0400 Body height 165.[address] Luis Cortés MD Work Phone: [facility] 03-28-2025 14:21-0400 Body mass index (BMI) [Ratio] 49.4 kg/m2 Dr. Luis Cortés MD Work Phone: [facility] 03-28-2025 14:21-0400 Body temperature 97.1 [degF] Dr. Luis Cortés MD Work Phone: [facility] 03-28-2025 14:21-0400 Body weight 134.[address] Luis Cortés MD Work Phone: [facility] 03-28-2025 14:21-0400 Diastolic blood pressure 71 mm[Hg] Dr. Luis Cortés MD Work Phone: [facility] 03-28-2025 14:21-0400 Heart rate 83 /min Dr. Luis Cortés MD Work Phone: [facility] 03-28-2025 14:21-0400 Respiratory rate 18 /min Dr. Luis Cortés MD Work Phone: [facility] 03-28-2025 14:21-0400 SaO2% (BldA) [Mass fraction] 92 % Dr. Luis Cortés MD Work Phone: [facility] 03-28-2025 14:21-0400 Systolic blood pressure 115 mm[Hg] Dr. Luis Cortés MD Work Phone: [facility] 2025 11:17-0400 Body mass index (BMI) [Ratio] 50.2 kg/m2 Dr. Luis Cortés MD Work Phone: [facility] 2025 11:17-0400 Body weight 136.[address] Luis Cortés MD Work Phone: [facility] 2025 11:17-0400 Diastolic blood pressure 78 mm[Hg] Dr. Luis Cortés MD Work Phone: [facility] 2025 11:17-0400 Heart rate 81 /min Dr. Luis Cortés MD Work Phone: [facility] 2025 11:17-0400 Respiratory rate 18 /min Dr. Luis Cortés MD Work Phone: [facility] 2025 11:17-0400 SaO2% (BldA) [Mass fraction] 90 % Dr. Luis Cortés MD Work Phone: [facility] 2025 11:17-0400 Systolic blood pressure 144 mm[Hg] Dr. Luis Cortés MD Work Phone: [facility] 02-12-2025 00:06-0400 Diastolic blood pressure 56 mm[Hg] John Jansen MD Work Phone: [facility] 02-12-2025 00:06-0400 Heart rate 67 /min John Jansen MD Work Phone: [facility] 02-12-2025 00:06-0400 Respiratory rate 20 /min John Jansen MD Work Phone: [facility] 02-12-2025 00:06-0400 SaO2% (BldA) [Mass fraction] 96 % John Jansen MD Work Phone: [facility] 02-12-2025 00:06-0400 Systolic blood pressure 148 mm[Hg] John Jansen MD Work Phone: [facility] 02-11-2025 22:28-0400 Body height 167.6 cm John Jansen MD Work Phone: [facility] 02-11-2025 22:28-0400 Body mass index (BMI) [Ratio] 49.39 kg/m2 John Jansen MD Work Phone: [facility] 02-11-2025 22:28-0400 Body temperature 98.4 [degF] John Jansen MD Work Phone: [facility] 02-11-2025 22:28-0400 Body weight 138.8 kg John Jansen MD Work Phone: [facility] 02-07-2025 13:37-0400 Body height 165.[address] Luis Cortés MD Work Phone: [facility] 02-07-2025 13:37-0400 Body mass index (BMI) [Ratio] 50.9 kg/m2 Dr. Luis Cortés MD Work Phone: [facility] 02-07-2025 13:37-0400 Body temperature 96.9 [degF] Dr. Luis Cortés MD Work Phone: [facility] 02-07-2025 13:37-0400 Body weight 138.[address] Luis Cortés MD Work Phone: [facility] 02-07-2025 13:37-0400 Diastolic blood pressure 78 mm[Hg] Dr. Luis Cortés MD Work Phone: [facility] 02-07-2025 13:37-0400 Heart rate 71 /min Dr. Luis Cortés MD Work Phone: [facility] 02-07-2025 13:37-0400 Respiratory rate 16 /min Dr. Luis Cortés MD Work Phone: [facility] 02-07-2025 13:37-0400 SaO2% (BldA) [Mass fraction] 95 % Dr. Luis Cortés MD Work Phone: [facility] 02-07-2025 13:37-0400 Systolic blood pressure 138 mm[Hg] Dr. Luis Cortés MD Work Phone: [facility] 01-19-2025 13:03-0400 Body height 165.[address] Luis Cortés MD Work Phone: [facility] 01-19-2025 13:03-0400 Body mass index (BMI) [Ratio] 50.9 kg/m2 Dr. Luis Cortés MD Work Phone: [facility] 01-19-2025 13:03-0400 Body temperature 98.6 [degF] Dr. Luis Cortés MD Work Phone: [facility] 01-19-2025 13:03-0400 Body weight 138.[address] Luis Cortés MD Work Phone: [facility] 01-19-2025 13:03-0400 Diastolic blood pressure 70 mm[Hg] Dr. Luis Cortés MD Work Phone: [facility] 01-19-2025 13:03-0400 Heart rate 82 /min Dr. Lusi Cortés MD Work Phone: [facility] 01-19-2025 13:03-0400 Respiratory rate 19 /min Dr. Luis Cortés MD Work Phone: [facility] 01-19-2025 13:03-0400 SaO2% (BldA) [Mass fraction] 97 % Dr. Luis Cortés MD Work Phone: [facility] 01-19-2025 13:03-0400 Systolic blood pressure 142 mm[Hg] Dr. Luis Cortés MD Work Phone: [facility] 01-19-2025 10:49-0400 Body temperature 98 [degF] Dr. Luis Cortés MD Work Phone: [facility] 01-19-2025 10:49-0400 Diastolic blood pressure 82 mm[Hg] Dr. Luis Cortés MD Work Phone: [facility] 01-19-2025 10:49-0400 Heart rate 83 /min Dr. Luis Cortés MD Work Phone: [facility] 01-19-2025 10:49-0400 Respiratory rate 18 /min Dr. Luis Cortés MD Work Phone: [facility] 01-19-2025 10:49-0400 Systolic blood pressure 166 mm[Hg] Dr. Luis Cortés MD Work Phone: [facility] 01-12-2025 11:12-0400 Body temperature 97.5 [degF] Dr. Luis Cortés MD Work Phone: [facility] 01-12-2025 11:12-0400 Diastolic blood pressure 83 mm[Hg] Dr. Luis Cortés MD Work Phone: [facility] 01-12-2025 11:12-0400 Heart rate 84 /min Dr. Luis Cortés MD Work Phone: [facility] 01-12-2025 11:12-0400 Respiratory rate 18 /min Dr. Luis Cortés MD Work Phone: [facility] 01-12-2025 11:12-0400 Systolic blood pressure 134 mm[Hg] Dr. Luis Cortés MD Work Phone: [facility] 12-29-2024 10:00-0400 Inhaled oxygen concentration 91 % Dr. Luis Cortés MD Work Phone: [facility] 12-15-2024 10:38-0400 Body mass index (BMI) [Ratio] 49.8 kg/m2 Dr. Luis Cortés MD Work Phone: [facility] 12-15-2024 10:38-0400 Body temperature 97.7 [degF] Dr. Luis Cortés MD Work Phone: [facility] 12-15-2024 10:38-0400 Diastolic blood pressure 62 mm[Hg] Dr. Luis Cortés MD Work Phone: [facility] 12-15-2024 10:38-0400 Heart rate 96 /min Dr. Luis Cortés MD Work Phone: [facility] 12-15-2024 10:38-0400 Inhaled oxygen concentration 96 % Dr. Luis Cortés MD Work Phone: [facility] 12-15-2024 10:38-0400 Respiratory rate 18 /min Dr. Luis Cortés MD Work Phone: [facility] 12-15-2024 10:38-0400 Systolic blood pressure 124 mm[Hg] Dr. Luis Cortés MD Work Phone: [facility] 12-07-2024 12:40-0400 Body height 165.[address] Luis Cortés MD Work Phone: [facility] 12-07-2024 12:40-0400 Body mass index (BMI) [Ratio] 51.2 kg/m2 Dr. Luis Cortés MD Work Phone: [facility] 12-07-2024 12:40-0400 Body temperature 97.3 [degF] Dr. Luis Cortés MD Work Phone: [facility] 12-07-2024 12:40-0400 Body weight 139.[address] Luis Cortés MD Work Phone: [facility] 12-07-2024 12:40-0400 Diastolic blood pressure 72 mm[Hg] Dr. Luis Cortés MD Work Phone: [facility] 12-07-2024 12:40-0400 Heart rate 70 /min Dr. Luis Cortés MD Work Phone: [facility] 12-07-2024 12:40-0400 Respiratory rate 18 /min Dr. Luis Cortés MD Work Phone: [facility] 12-07-2024 12:40-0400 SaO2% (BldA) [Mass fraction] 91 % Dr. Luis Cortés MD Work Phone: [facility] 12-07-2024 12:40-0400 Systolic blood pressure 148 mm[Hg] Dr. Luis Cortés MD Work Phone: [facility] 11-27-2024 21:09-0400 Body temperature 98 [degF] Dr. Luis Cortés MD Work Phone: [facility] 11-27-2024 21:09-0400 Diastolic blood pressure 59 mm[Hg] Dr. Luis Cortés MD Work Phone: [facility] 11-27-2024 21:09-0400 Heart rate 85 /min Dr. Luis Cortés MD Work Phone: [facility] 11-27-2024 21:09-0400 Respiratory rate 18 /min Dr. Luis Cortés MD Work Phone: [facility] 11-27-2024 21:09-0400 SaO2% (BldA) [Mass fraction] 95 % Dr. Luis Cortés MD Work Phone: [facility] 11-27-2024 21:09-0400 Systolic blood pressure 158 mm[Hg] Dr. Luis Cortés MD Work Phone: [facility] 11-27-2024 20:00-0400 Inhaled oxygen flow rate 2 L/min Dr. Luis Cortés MD Work Phone: [facility] 11-27-2024 16:13-0400 Body height 165.[address] Luis Cortés MD Work Phone: [facility] 11-24-2024 10:57-0400 Body mass index (BMI) [Ratio] 49.8 kg/m2 Dr. Luis Cortés MD Work Phone: [facility] 11-24-2024 10:57-0400 Body temperature 96.6 [degF] Dr. Luis Cortés MD Work Phone: [facility] 11-24-2024 10:57-0400 Diastolic blood pressure 79 mm[Hg] Dr. Luis Cortés MD Work Phone: [facility] 11-24-2024 10:57-0400 Heart rate 73 /min Dr. Luis Cortés MD Work Phone: [facility] 11-24-2024 10:57-0400 Respiratory rate 18 /min Dr. Luis Cortés MD Work Phone: [facility] 11-24-2024 10:57-0400 Systolic blood pressure 147 mm[Hg] Dr. Luis Cortés MD Work Phone: [facility] 11-22-2024 09:26-0400 Body height 165.[address] Luis Cortés MD Work Phone: [facility] 11-22-2024 09:26-0400 Body mass index (BMI) [Ratio] 51.2 kg/m2 Dr. Luis Cortés MD Work Phone: [facility] 11-22-2024 09:26-0400 Body temperature 96.8 [degF] Dr. Luis Cortés MD Work Phone: [facility] 11-22-2024 09:26-0400 Body weight 139.[address] Luis Cortés MD Work Phone: [facility] 11-22-2024 09:26-0400 Diastolic blood pressure 54 mm[Hg] Dr. Luis Cortés MD Work Phone: [facility] 11-22-2024 09:26-0400 Heart rate 67 /min Dr. Luis Cortés MD Work Phone: [facility] 11-22-2024 09:26-0400 Respiratory rate 16 /min Dr. Luis Cortés MD Work Phone: [facility] 11-22-2024 09:26-0400 SaO2% (BldA) [Mass fraction] 91 % Dr. Luis Cortés MD Work Phone: [facility] 11-22-2024 09:26-0400 Systolic blood pressure 138 mm[Hg] Dr. Luis Cortés MD Work Phone: [facility] 11-20-2024 11:46-0400 Body temperature 96.7 [degF] Dr. Luis Cortés MD Work Phone: [facility] 11-20-2024 11:46-0400 Diastolic blood pressure 49 mm[Hg] Dr. Luis Cortés MD Work Phone: [facility] 11-20-2024 11:46-0400 Heart rate 78 /min Dr. Luis Cortés MD Work Phone: [facility] 11-20-2024 11:46-0400 Respiratory rate 18 /min Dr. Luis Cortés MD Work Phone: [facility] 11-20-2024 11:46-0400 Systolic blood pressure 121 mm[Hg] Dr. Luis Cortés MD Work Phone: [facility] 11-20-2024 10:42-0400 Body height 166.[address] Luis Cortés MD Work Phone: [facility] 11-20-2024 10:42-0400 SaO2% (BldA) [Mass fraction] 95 % Dr. Luis Cortés MD Work Phone: [facility] 11-19-2024 00:36-0400 Body weight 140.[address] Luis Cortés MD Work Phone: [facility] 11-19-2024 00:36-0400 SaO2% (BldA) [Mass fraction] 92 % Dr. Luis Cortés MD Work Phone: [facility] 11-18-2024 10:44-0400 Body temperature 97.8 [degF] Dr. Luis Cortés MD Work Phone: [facility] 11-18-2024 10:44-0400 Diastolic blood pressure 53 mm[Hg] Dr. Luis Cortés MD Work Phone: [facility] 11-18-2024 10:44-0400 Heart rate 73 /min Dr. Luis Cortés MD Work Phone: [facility] 11-18-2024 10:44-0400 Respiratory rate 18 /min Dr. Luis Cortés MD Work Phone: [facility] 11-18-2024 10:44-0400 SaO2% (BldA) [Mass fraction] 90 % Dr. Luis Cortés MD Work Phone: [facility] 11-18-2024 10:44-0400 Systolic blood pressure 106 mm[Hg] Dr. Luis Cortés MD Work Phone: [facility] 11-17-2024 09:46-0400 Body mass index (BMI) [Ratio] 49.8 kg/m2 Dr. Luis Cortés MD Work Phone: [facility] 11-17-2024 09:46-0400 Body temperature 98.3 [degF] Dr. Luis Cortés MD Work Phone: [facility] 11-17-2024 09:46-0400 Diastolic blood pressure 76 mm[Hg] Dr. Luis Cortés MD Work Phone: [facility] 11-17-2024 09:46-0400 Heart rate 77 /min Dr. Luis Cortés MD Work Phone: [facility] 11-17-2024 09:46-0400 Respiratory rate 20 /min Dr. Luis Cortés MD Work Phone: [facility] 11-17-2024 09:46-0400 SaO2% (BldA) [Mass fraction] 92 % Dr. Luis Cortés MD Work Phone: [facility] 11-17-2024 09:46-0400 Systolic blood pressure 153 mm[Hg] Dr. Luis Cortés MD Work Phone: [facility] 11-16-2024 14:41-0400 Body temperature 96.2 [degF] Dr. Luis Cortés MD Work Phone: [facility] 11-16-2024 14:41-0400 Diastolic blood pressure 68 mm[Hg] Dr. Luis Cortés MD Work Phone: [facility] 11-16-2024 14:41-0400 Heart rate 77 /min Dr. Luis Cortés MD Work Phone: [facility] 11-16-2024 14:41-0400 Respiratory rate 16 /min Dr. Luis Cortés MD Work Phone: [facility] 11-16-2024 14:41-0400 SaO2% (BldA) [Mass fraction] 93 % Dr. Luis Cortés MD Work Phone: [facility] 11-16-2024 14:41-0400 Systolic blood pressure 128 mm[Hg] Dr. Luis Cortés MD Work Phone: [facility] 11-16-2024 08:04-0400 Body height 167.[address] Luis Cortés MD Work Phone: [facility] 11-16-2024 08:04-0400 Body mass index (BMI) [Ratio] 49.7 kg/m2 Dr. Luis Cortés MD Work Phone: [facility] 11-16-2024 08:04-0400 Body weight 139.[address] Luis Cortés MD Work Phone: [facility] 11-15-2024 11:21-0400 Body height 167.[address] Luis Cortés MD Work Phone: [facility] 11-15-2024 11:21-0400 Body mass index (BMI) [Ratio] 49.7 kg/m2 Dr. Luis Cortés MD Work Phone: [facility] 11-15-2024 11:21-0400 Body temperature 96.2 [degF] Dr. Luis Cortés MD Work Phone: [facility] 11-15-2024 11:21-0400 Body weight 139.[address] Luis Cortés MD Work Phone: [facility] 11-15-2024 11:21-0400 Diastolic blood pressure 71 mm[Hg] Dr. Luis Cortés MD Work Phone: [facility] 11-15-2024 11:21-0400 Heart rate 66 /min Dr. Luis Cortés MD Work Phone: [facility] 11-15-2024 11:21-0400 Respiratory rate 16 /min Dr. Luis Cortés MD Work Phone: [facility] 11-15-2024 11:21-0400 SaO2% (BldA) [Mass fraction] 96 % Dr. Luis Cortés MD Work Phone: [facility] 11-15-2024 11:21-0400 Systolic blood pressure 135 mm[Hg] Dr. Luis Cortés MD Work Phone: [facility] 11-14-2024 13:40-0400 Body temperature 96.6 [degF] Dr. Luis Cortés MD Work Phone: [facility] 11-14-2024 13:40-0400 Diastolic blood pressure 57 mm[Hg] Dr. Luis Cortés MD Work Phone: [facility] 11-14-2024 13:40-0400 Heart rate 76 /min Dr. Luis Cortés MD Work Phone: [facility] 11-14-2024 13:40-0400 Respiratory rate 16 /min Dr. Luis Cortés MD Work Phone: [facility] 11-14-2024 13:40-0400 SaO2% (BldA) [Mass fraction] 94 % Dr. Luis Cortés MD Work Phone: [facility] 11-14-2024 13:40-0400 Systolic blood pressure 126 mm[Hg] Dr. Luis Cortés MD Work Phone: [facility] 11-14-2024 12:05-0400 Body height 167.[address] Luis Cortés MD Work Phone: [facility] 11-14-2024 12:05-0400 Body mass index (BMI) [Ratio] 49.7 kg/m2 Dr. Luis Cortés MD Work Phone: [facility] 11-14-2024 12:05-0400 Body weight 139.[address] Luis Cortés MD Work Phone: [facility] 11-14-2024 10:25-0400 Body mass index (BMI) [Ratio] 49.7 kg/m2 Dr. Luis Cortés MD Work Phone: [facility] 11-14-2024 10:25-0400 Body temperature 96.2 [degF] Dr. Luis Cortés MD Work Phone: [facility] 11-14-2024 10:25-0400 Body weight 139.[address] Luis Cortés MD Work Phone: [facility] 11-14-2024 10:25-0400 Diastolic blood pressure 56 mm[Hg] Dr. Luis Cortés MD Work Phone: [facility] 11-14-2024 10:25-0400 Heart rate 66 /min Dr. Luis Cortés MD Work Phone: [facility] 11-14-2024 10:25-0400 Respiratory rate 20 /min Dr. Luis Cortés MD Work Phone: [facility] 11-14-2024 10:25-0400 SaO2% (BldA) [Mass fraction] 95 % Dr. Luis Cortés MD Work Phone: [facility] 11-14-2024 10:25-0400 Systolic blood pressure 155 mm[Hg] Dr. Luis Cortés MD Work Phone: [facility] 11-10-2024 10:17-0400 Body mass index (BMI) [Ratio] 49.8 kg/m2 Dr. Luis Cortés MD Work Phone: [facility] 11-10-2024 10:17-0400 Body temperature 96.4 [degF] Dr. Luis Cortés MD Work Phone: [facility] 11-10-2024 10:17-0400 Diastolic blood pressure 63 mm[Hg] Dr. Luis Cortés MD Work Phone: [facility] 11-10-2024 10:17-0400 Heart rate 82 /min Dr. Luis Cortés MD Work Phone: [facility] 11-10-2024 10:17-0400 Respiratory rate 18 /min Dr. Luis Cortés MD Work Phone: [facility] 11-10-2024 10:17-0400 Systolic blood pressure 144 mm[Hg] Dr. Luis Cortés MD Work Phone: [facility] 11-06-2024 10:44-0400 Body height 165.[address] Luis Cortés MD Work Phone: [facility] 11-06-2024 10:44-0400 Body mass index (BMI) [Ratio] 51.2 kg/m2 Dr. Luis Cortés MD Work Phone: [facility] 11-06-2024 10:44-0400 Body temperature 97.8 [degF] Dr. Luis Cortés MD Work Phone: [facility] 11-06-2024 10:44-0400 Body weight 139.[address] Luis Cortés MD Work Phone: [facility] 11-06-2024 10:44-0400 Diastolic blood pressure 88 mm[Hg] Dr. Luis Cortés MD Work Phone: [facility] 11-06-2024 10:44-0400 Heart rate 97 /min Dr. Luis Cortés MD Work Phone: [facility] 11-06-2024 10:44-0400 Respiratory rate 18 /min Dr. Luis Cortés MD Work Phone: [facility] 11-06-2024 10:44-0400 SaO2% (BldA) [Mass fraction] 89 % Dr. Luis Cortés MD Work Phone: [facility] 11-06-2024 10:44-0400 Systolic blood pressure 144 mm[Hg] Dr. Luis Cortés MD Work Phone: [facility] 11-03-2024 10:36-0400 Body mass index (BMI) [Ratio] 49.8 kg/m2 Dr. Luis Cortés MD Work Phone: [facility] 11-03-2024 10:36-0400 Body temperature 96 [degF] Dr. Luis Cortés MD Work Phone: [facility] 11-03-2024 10:36-0400 Diastolic blood pressure 85 mm[Hg] Dr. Luis Cortés MD Work Phone: [facility] 11-03-2024 10:36-0400 Heart rate 79 /min Dr. Luis Cortés MD Work Phone: [facility] 11-03-2024 10:36-0400 Respiratory rate 18 /min Dr. Luis Cortés MD Work Phone: [facility] 11-03-2024 10:36-0400 Systolic blood pressure 161 mm[Hg] Dr. Luis Cortés MD Work Phone: [facility] 10-19-2024 00:34-0400 Body weight 140.[address] Luis Cortés MD Work Phone: [facility] 10-19-2024 00:34-0400 SaO2% (BldA) [Mass fraction] 94 % Dr. Luis Cortés MD Work Phone: [facility] 10-18-2024 08:01-0400 Body mass index (BMI) [Ratio] 51.1 kg/m2 Dr. Luis Cortés MD Work Phone: [facility] 10-18-2024 08:01-0400 Body temperature 97.4 [degF] Dr. Luis Cortés MD Work Phone: [facility] 10-18-2024 08:01-0400 Body weight 141.[address] Luis Cortés MD Work Phone: [facility] 10-18-2024 08:01-0400 Diastolic blood pressure 79 mm[Hg] Dr. Luis Cortés MD Work Phone: [facility] 10-18-2024 08:01-0400 Heart rate 66 /min Dr. Luis Cortés MD Work Phone: [facility] 10-18-2024 08:01-0400 Respiratory rate 18 /min Dr. Luis Cortés MD Work Phone: [facility] 10-18-2024 08:01-0400 SaO2% (BldA) [Mass fraction] 93 % Dr. Luis Cortés MD Work Phone: [facility] 10-18-2024 08:01-0400 Systolic blood pressure 139 mm[Hg] Dr. Luis Cortés MD Work Phone: [facility] 10-13-2024 10:17-0400 Body mass index (BMI) [Ratio] 49.8 kg/m2 Dr. Luis Cortés MD Work Phone: [facility] 10-13-2024 10:17-0400 Body temperature 96.8 [degF] Dr. Luis Cortés MD Work Phone: [facility] 10-13-2024 10:17-0400 Diastolic blood pressure 63 mm[Hg] Dr. Luis Cortés MD Work Phone: [facility] 10-13-2024 10:17-0400 Heart rate 69 /min Dr. Luis Cortés MD Work Phone: [facility] 10-13-2024 10:17-0400 Respiratory rate 18 /min Dr. Luis Cortés MD Work Phone: [facility] 10-13-2024 10:17-0400 Systolic blood pressure 136 mm[Hg] Dr. Luis Cortés MD Work Phone: [facility] 10-03-2024 07:32-0400 Body mass index (BMI) [Ratio] 50.4 kg/m2 Dr. Luis Cortés MD Work Phone: [facility] 10-03-2024 07:32-0400 Body weight 139.[address] Luis Cortés MD Work Phone: [facility] 10-03-2024 07:32-0400 Diastolic blood pressure 82 mm[Hg] Dr. Luis Cortés MD Work Phone: [facility] 10-03-2024 07:32-0400 Heart rate 90 /min Dr. Luis Cortés MD Work Phone: [facility] 10-03-2024 07:32-0400 Respiratory rate 18 /min Dr. Luis Cortés MD Work Phone: [facility] 10-03-2024 07:32-0400 SaO2% (BldA) [Mass fraction] 96 % Dr. Luis Cortés MD Work Phone: [facility] 10-03-2024 07:32-0400 Systolic blood pressure 153 mm[Hg] Dr. Luis Cortés MD Work Phone: [facility] 09-19-2024 00:40-0400 Body weight 140.[address] Luis Cortés MD Work Phone: [facility] 09-19-2024 00:40-0400 SaO2% (BldA) [Mass fraction] 94 % Dr. Luis Cortés MD Work Phone: [facility] 09-15-2024 09:38-0400 Body mass index (BMI) [Ratio] 49.8 kg/m2 Dr. Luis Cortés MD Work Phone: [facility] 09-15-2024 09:38-0400 Body temperature 97.5 [degF] Dr. Luis Cortés MD Work Phone: [facility] 09-15-2024 09:38-0400 Diastolic blood pressure 60 mm[Hg] Dr. Luis Cortés MD Work Phone: [facility] 09-15-2024 09:38-0400 Heart rate 74 /min Dr. Luis Cortés MD Work Phone: [facility] 09-15-2024 09:38-0400 Respiratory rate 18 /min Dr. Luis Cortés MD Work Phone: [facility] 09-15-2024 09:38-0400 Systolic blood pressure 140 mm[Hg] Dr. Luis Cortés MD Work Phone: [facility] 09-01-2024 09:54-0400 Body mass index (BMI) [Ratio] 49.8 kg/m2 Dr. Luis Cortés MD Work Phone: [facility] 09-01-2024 09:54-0400 Body temperature 97 [degF] Dr. Luis Cortés MD Work Phone: [facility] 09-01-2024 09:54-0400 Diastolic blood pressure 82 mm[Hg] Dr. Luis Cortés MD Work Phone: [facility] 09-01-2024 09:54-0400 Heart rate 81 /min Dr. Luis Cortés MD Work Phone: [facility] 09-01-2024 09:54-0400 Respiratory rate 18 /min Dr. Luis Cortés MD Work Phone: [facility] 09-01-2024 09:54-0400 Systolic blood pressure 170 mm[Hg] Dr. Luis Cortés MD Work Phone: [facility] 08-28-2024 12:21-0400 Heart rate 99 /min Dr. Luis Cortés MD Work Phone: [facility] 08-28-2024 11:16-0400 Body height 166.[address] Luis Cortés MD Work Phone: [facility] 08-28-2024 11:16-0400 Body mass index (BMI) [Ratio] 51.7 kg/m2 Dr. Luis Cortés MD Work Phone: [facility] 08-28-2024 11:16-0400 Body weight 143.[address] Luis Cortés MD Work Phone: [facility] 08-28-2024 11:16-0400 Diastolic blood pressure 75 mm[Hg] Dr. Luis Coréts MD Work Phone: [facility] 08-28-2024 11:16-0400 Respiratory rate 18 /min Dr. Luis Cortés MD Work Phone: [facility] 08-28-2024 11:16-0400 Systolic blood pressure 116 mm[Hg] Dr. Luis Cortés MD Work Phone: [facility] 08-19-2024 00:41-0500 Body weight 140.[address] Luis Cortés MD Work Phone: [facility] 08-19-2024 00:41-0500 SaO2% (BldA) [Mass fraction] 94 % Dr. Luis Cortés MD Work Phone: [facility] 08-18-2024 09:30-0500 Body mass index (BMI) [Ratio] 49.8 kg/m2 Dr. Luis Cortés MD Work Phone: [facility] 08-18-2024 09:30-0500 Body temperature 97.6 [degF] Dr. Luis Cortés MD Work Phone: [facility] 08-18-2024 09:30-0500 Diastolic blood pressure 74 mm[Hg] Dr. Luis Cortés MD Work Phone: [facility] 08-18-2024 09:30-0500 Heart rate 83 /min Dr. Luis Cortés MD Work Phone: [facility] 08-18-2024 09:30-0500 Respiratory rate 18 /min Dr. Luis Cortés MD Work Phone: [facility] 08-18-2024 09:30-0500 Systolic blood pressure 149 mm[Hg] Dr. Luis Cortés MD Work Phone: [facility] 08-02-2024 10:07-0500 Body temperature 98 [degF] Dr. uLis Cortés MD Work Phone: [facility] 08-02-2024 10:07-0500 Body weight 141.[address] Luis Cortés MD Work Phone: [facility] 08-02-2024 10:07-0500 Diastolic blood pressure 68 mm[Hg] Dr. Luis Cortés MD Work Phone: [facility] 08-02-2024 10:07-0500 Heart rate 89 /min Dr. Luis Cortés MD Work Phone: [facility] 08-02-2024 10:07-0500 Respiratory rate 16 /min Dr. Luis Cortés MD Work Phone: [facility] 08-02-2024 10:07-0500 SaO2% (BldA) [Mass fraction] 91 % Dr. Luis Cortés MD Work Phone: [facility] 08-02-2024 10:07-0500 Systolic blood pressure 135 mm[Hg] Dr. Luis Cortés MD Work Phone: [facility] 07-27-2024 09:00-0500 Body weight 142.[address] Luis Cortés MD Work Phone: [facility] 07-22-2024 00:50-0500 Body weight 140.[address] Luis Cortés MD Work Phone: [facility] 07-22-2024 00:50-0500 SaO2% (BldA) [Mass fraction] 94 % Dr. Luis Cortés MD Work Phone: [facility] 07-21-2024 10:34-0500 Body mass index (BMI) [Ratio] 49.8 kg/m2 Dr. Luis Cortés MD Work Phone: [facility] 07-21-2024 10:34-0500 Body temperature 97.6 [degF] Dr. Luis Cortés MD Work Phone: [facility] 07-21-2024 10:34-0500 Diastolic blood pressure 74 mm[Hg] Dr. Luis Cortés MD Work Phone: [facility] 07-21-2024 10:34-0500 Heart rate 92 /min Dr. Luis Cortés MD Work Phone: [facility] 07-21-2024 10:34-0500 Respiratory rate 18 /min Dr. Luis Cortés MD Work Phone: [facility] 07-21-2024 10:34-0500 Systolic blood pressure 141 mm[Hg] Dr. Luis Cortés MD Work Phone: [facility] 07-05-2024 08:47-0500 Body mass index (BMI) [Ratio] 52.4 kg/m2 Dr. Luis Cortés MD Work Phone: [facility] 06-21-2024 00:25-0500 Body weight 140.[address] Luis Cortés MD Work Phone: [facility] 06-21-2024 00:25-0500 SaO2% (BldA) [Mass fraction] 94 % Dr. Luis Cortés MD Work Phone: [facility] 06-16-2024 10:47-0500 Body mass index (BMI) [Ratio] 49.8 kg/m2 Dr. Luis Cortés MD Work Phone: [facility] 06-16-2024 10:47-0500 Body temperature 96.4 [degF] Dr. Luis Cortés MD Work Phone: [facility] 06-16-2024 10:47-0500 Diastolic blood pressure 59 mm[Hg] Dr. Luis Cortés MD Work Phone: [facility] 06-16-2024 10:47-0500 Heart rate 81 /min Dr. Luis Cortés MD Work Phone: [facility] 06-16-2024 10:47-0500 Respiratory rate 18 /min Dr. Luis Cortés MD Work Phone: [facility] 06-16-2024 10:47-0500 Systolic blood pressure 133 mm[Hg] Dr. Luis Cortés MD Work Phone: [facility] 06-08-2024 17:27-0500 Body mass index (BMI) [Ratio] 51.9 kg/m2 Dr. Luis Cortés MD Work Phone: [facility] 06-08-2024 17:27-0500 Body temperature 97.2 [degF] Dr. Luis Cortés MD Work Phone: [facility] 06-08-2024 17:27-0500 Body weight 141.[address] Luis Cortés MD Work Phone: [facility] 06-08-2024 17:27-0500 Diastolic blood pressure 84 mm[Hg] Dr. Luis Cortés MD Work Phone: [facility] 06-08-2024 17:27-0500 Heart rate 84 /min Dr. Luis Cortés MD Work Phone: [facility] 06-08-2024 17:27-0500 Respiratory rate 16 /min Dr. Luis Cortés MD Work Phone: [facility] 06-08-2024 17:27-0500 SaO2% (BldA) [Mass fraction] 93 % Dr. Luis Cortés MD Work Phone: [facility] 06-08-2024 17:27-0500 Systolic blood pressure 122 mm[Hg] Dr. Luis Cortés MD Work Phone: [facility] 05-21-2024 00:47-0500 Body weight 140.[address] Luis Cortés MD Work Phone: [facility] 05-21-2024 00:47-0500 SaO2% (BldA) [Mass fraction] 94 % Dr. Luis Cortés MD Work Phone: [facility] 05-12-2024 11:12-0500 Body mass index (BMI) [Ratio] 49.8 kg/m2 Dr. Luis Cortés MD Work Phone: [facility] 05-12-2024 11:12-0500 Body temperature 96.4 [degF] Dr. Luis Cortés MD Work Phone: [facility] 05-12-2024 11:12-0500 Diastolic blood pressure 74 mm[Hg] Dr. Luis Cortés MD Work Phone: [facility] 05-12-2024 11:12-0500 Heart rate 91 /min Dr. Luis Cortés MD Work Phone: [facility] 05-12-2024 11:12-0500 Respiratory rate 18 /min Dr. Luis Cortés MD Work Phone: [facility] 05-12-2024 11:12-0500 Systolic blood pressure 142 mm[Hg] Dr. Luis Cortés MD Work Phone: [facility] 04-21-2024 00:40-0400 Body weight 140.[address] Luis Cortés MD Work Phone: [facility] 04-21-2024 00:40-0400 SaO2% (BldA) [Mass fraction] 94 % Dr. Luis Cortés MD Work Phone: [facility] 09-29-2023 15:25-0400 Body height 167.[address] Luis Cortés Work Phone: [facility] 09-29-2023 15:25-0400 Body mass index (BMI) [Ratio] 50.7 kg/m2 Dr. Luis Cortés Work Phone: [facility] 09-29-2023 15:25-0400 Body temperature 97.9 [degF] Dr. Luis Cortés Work Phone: [facility] 09-29-2023 15:25-0400 Body weight 142.[address] Luis Cortés Work Phone: [facility] 09-29-2023 15:25-0400 Diastolic blood pressure 74 mm[Hg] Dr. Luis Cortés Work Phone: [facility] 09-29-2023 15:25-0400 Heart rate 67 /min Dr. Luis Cortés Work Phone: [facility] 09-29-2023 15:25-0400 Respiratory rate 18 /min Dr. Luis Cortés Work Phone: [facility] 09-29-2023 15:25-0400 SaO2% (BldA) [Mass fraction] 93 % Dr. Luis Cortés Work Phone: [facility] 09-29-2023 15:25-0400 Systolic blood pressure 199 mm[Hg] Dr. Luis Cortés Work Phone: [facility] 09-24-2023 17:06-0400 Body temperature 97.6 [degF] Dr. uLis Cortés Work Phone: [facility] 09-24-2023 17:06-0400 Diastolic blood pressure 59 mm[Hg] Dr. Luis Cortés Work Phone: [facility] 04-05-2024 17:06-0400 Heart rate 79 /min Dr. Luis Cortés Work Phone: [facility] 09-24-2023 17:06-0400 Respiratory rate 20 /min Dr. Luis Cortés Work Phone: [facility] 09-24-2023 17:06-0400 SaO2% (BldA) [Mass fraction] 94 % Dr. Luis Cortés Work Phone: [facility] 09-24-2023 17:06-0400 Systolic blood pressure 154 mm[Hg] Dr. Luis Cortés Work Phone: [facility] 09-24-2023 16:56-0400 Inhaled oxygen flow rate 2 L/min Dr. Luis Cortés Work Phone: [facility] 09-24-2023 14:01-0400 Body height 167.[address] Luis Cortés Work Phone: [facility] 09-24-2023 14:01-0400 Body mass index (BMI) [Ratio] 49.8 kg/m2 Dr. Luis Cortés Work Phone: [facility] 09-24-2023 14:01-0400 Body weight 140.[address] Luis Cortés Work Phone: [facility] 09-13-2023 08:45-0400 Body height 167.[address] Luis Cortés Work Phone: [facility] 09-13-2023 08:45-0400 Body mass index (BMI) [Ratio] 49.6 kg/m2 Dr. Luis Cortés Work Phone: [facility] 09-13-2023 08:45-0400 Body temperature 97.5 [degF] Dr. Luis Cortés Work Phone: [facility] 09-13-2023 08:45-0400 Body weight 139.[address] Luis Cortés Work Phone: [facility] 09-13-2023 08:45-0400 Diastolic blood pressure 91 mm[Hg] Dr. Luis Cortés Work Phone: [facility] 09-13-2023 08:45-0400 Heart rate 56 /min Dr. Luis Cortés Work Phone: [facility] 09-13-2023 08:45-0400 Respiratory rate 18 /min Dr. Luis Cortés Work Phone: [facility] 09-13-2023 08:45-0400 SaO2% (BldA) [Mass fraction] 91 % Dr. Luis Cortés Work Phone: [facility] 09-13-2023 08:45-0400 Systolic blood pressure 164 mm[Hg] Dr. Luis Cortés Work Phone: [facility] 09-10-2023 09:13-0400 Body mass index (BMI) [Ratio] 49.8 kg/m2 Dr. Luis Cortés Work Phone: [facility] 09-10-2023 09:13-0400 Body temperature 97.6 [degF] Dr. Luis Cortés Work Phone: [facility] 09-10-2023 09:13-0400 Diastolic blood pressure 93 mm[Hg] Dr. Luis Cortés Work Phone: [facility] 09-10-2023 09:13-0400 Heart rate 83 /min Dr. Luis Cortés Work Phone: [facility] 09-10-2023 09:13-0400 Respiratory rate 18 /min Dr. Luis Cortés Work Phone: [facility] 09-10-2023 09:13-0400 Systolic blood pressure 160 mm[Hg] Dr. Luis Cortés Work Phone: [facility] 09-01-2023 14:18-0400 Body temperature 97.7 [degF] Dr. Luis Cortés Work Phone: [facility] 09-01-2023 14:18-0400 Body weight 141.[address] Luis Cortés Work Phone: [facility] 09-01-2023 14:18-0400 Diastolic blood pressure 75 mm[Hg] Dr. Luis Cortés Work Phone: [facility] 09-01-2023 14:18-0400 Heart rate 68 /min Dr. Luis Cortés Work Phone: [facility] 09-01-2023 14:18-0400 Respiratory rate 16 /min Dr. Luis Cortés Work Phone: [facility] 09-01-2023 14:18-0400 SaO2% (BldA) [Mass fraction] 90 % Dr. Luis Cortés Work Phone: [facility] 09-01-2023 14:18-0400 Systolic blood pressure 160 mm[Hg] Dr. Luis Cortés Work Phone: [facility] 08-20-2023 00:22-0500 Body weight 140.[address] Luis Cortés Work Phone: [facility] 08-13-2023 09:16-0500 Body mass index (BMI) [Ratio] 49.8 kg/m2 Dr. Luis Cortés Work Phone: [facility] 08-13-2023 09:16-0500 Body temperature 97.3 [degF] Dr. Luis Coréts Work Phone: [facility] 08-13-2023 09:16-0500 Diastolic blood pressure 78 mm[Hg] Dr. Luis Cortés Work Phone: [facility] 08-13-2023 09:16-0500 Heart rate 68 /min Dr. Luis Cortés Work Phone: [facility] 08-13-2023 09:16-0500 Respiratory rate 18 /min Dr. Luis Cortés Work Phone: [facility] 08-13-2023 09:16-0500 Systolic blood pressure 170 mm[Hg] Dr. Luis Cortés Work Phone: [facility] 07-23-2023 09:03-0500 Body height 167.[address] Luis Cortés Work Phone: [facility] 07-23-2023 09:03-0500 Body weight 140.[address] Luis Cortés Work Phone: [facility] 06-20-2023 20:17-0500 Diastolic blood pressure 92 mm[Hg] Dr. Luis Cortés Work Phone: [facility] 06-20-2023 20:17-0500 Systolic blood pressure 121 mm[Hg] Dr. Luis Cortés Work Phone: [facility] 06-20-2023 15:58-0500 Heart rate 81 /min Dr. Luis Cortés Work Phone: [facility] 06-20-2023 15:58-0500 Respiratory rate 26 /min Dr. Luis Cortés Work Phone: [facility] 06-20-2023 15:58-0500 SaO2% (BldA) [Mass fraction] 95 % Dr. Luis Cortés Work Phone: [facility] 06-20-2023 15:45-0500 Body height 167.[address] Luis Cortés Work Phone: [facility] 06-20-2023 15:45-0500 Body mass index (BMI) [Ratio] 49.8 kg/m2 Dr. Luis Cortés Work Phone: [facility] 06-20-2023 15:45-0500 Body temperature 97 [degF] Dr. Luis Cortés Work Phone: [facility] 06-20-2023 15:45-0500 Body weight 140.[address] Luis Cortés Work Phone: [facility] 05-31-2023 15:54-0500 Body mass index (BMI) [Ratio] 50.2 kg/m2 Dr. Luis Cortés Work Phone: [facility] 05-31-2023 15:54-0500 Body temperature 97.9 [degF] Dr. Luis Cortés Work Phone: [facility] 05-31-2023 15:54-0500 Body weight 141.[address] Luis Cortés Work Phone: [facility] 05-31-2023 15:54-0500 Diastolic blood pressure 58 mm[Hg] Dr. Luis Cortés Work Phone: [facility] 05-31-2023 15:54-0500 Heart rate 67 /min Dr. Luis Cortés Work Phone: [facility] 05-31-2023 15:54-0500 Respiratory rate 18 /min Dr. Luis Cortés Work Phone: [facility] 05-31-2023 15:54-0500 SaO2% (BldA) [Mass fraction] 93 % Dr. Luis Cortés Work Phone: [facility] 05-31-2023 15:54-0500 Systolic blood pressure 144 mm[Hg] Dr. Luis Cortés Work Phone: [facility] 03-30-2023 06:58-0400 Body height 167.[address] Luis Cortés Work Phone: [facility] 03-30-2023 06:58-0400 Body mass index (BMI) [Ratio] 50.5 kg/m2 Dr. Luis Cortés Work Phone: [facility] 03-30-2023 06:58-0400 Body temperature 98.7 [degF] Dr. Luis Cortés Work Phone: [facility] 03-30-2023 06:58-0400 Body weight 141.[address] Luis Cortés Work Phone: [facility] 03-30-2023 06:58-0400 Diastolic blood pressure 76 mm[Hg] Dr. Luis Cortés Work Phone: [facility] 03-30-2023 06:58-0400 Heart rate 68 /min Dr. Luis Cortés Work Phone: [facility] 03-30-2023 06:58-0400 Respiratory rate 18 /min Dr. Luis Cortés Work Phone: [facility] 03-30-2023 06:58-0400 SaO2% (BldA) [Mass fraction] 94 % Dr. Luis Cortés Work Phone: [facility] 03-30-2023 06:58-0400 Systolic blood pressure 154 mm[Hg] Dr. Luis Cortés Work Phone: [facility] 03-29-2023 09:56-0400 Body mass index (BMI) [Ratio] 50.5 kg/m2 Dr. Luis Cortés Work Phone: [facility] 03-29-2023 09:56-0400 Body weight 141.[address] Luis Cortés Work Phone: [facility] 03-29-2023 09:56-0400 Diastolic blood pressure 74 mm[Hg] Dr. Luis Coréts Work Phone: [facility] 03-29-2023 09:56-0400 Heart rate 76 /min Dr. Luis Cortés Work Phone: [facility] 03-29-2023 09:56-0400 Respiratory rate 20 /min Dr. Luis Cortés Work Phone: [facility] 03-29-2023 09:56-0400 SaO2% (BldA) [Mass fraction] 90 % Dr. Luis Cortés Work Phone: [facility] 03-29-2023 09:56-0400 Systolic blood pressure 134 mm[Hg] Dr. Luis Cortés Work Phone: [facility] 03-25-2023 13:57-0400 Body mass index (BMI) [Ratio] 50.4 kg/m2 Dr. Luis Cortés Work Phone: [facility] 03-25-2023 13:57-0400 Body temperature 98.4 [degF] Dr. Luis Cortés Work Phone: [facility] 03-25-2023 13:57-0400 Body weight 141.[address] Luis Cortés Work Phone: [facility] 03-25-2023 13:57-0400 Diastolic blood pressure 77 mm[Hg] Dr. Luis Cortés Work Phone: [facility] 03-25-2023 13:57-0400 Heart rate 65 /min Dr. Luis Cortés Work Phone: [facility] 03-25-2023 13:57-0400 Respiratory rate 18 /min Dr. Luis Cortés Work Phone: [facility] 03-25-2023 13:57-0400 SaO2% (BldA) [Mass fraction] 93 % Dr. Luis Cortés Work Phone: [facility] 03-25-2023 13:57-0400 Systolic blood pressure 139 mm[Hg] Dr. Luis Cortés Work Phone: [facility] 02-11-2023 14:31-0400 Body height 167.[address] Luis Cortés Work Phone: [facility] 02-11-2023 14:31-0400 Body mass index (BMI) [Ratio] 49.2 kg/m2 Dr. Luis Cortés Work Phone: [facility] 02-11-2023 14:31-0400 Body temperature 96.5 [degF] Dr. Luis Cortés Work Phone: [facility] 02-11-2023 14:31-0400 Body weight 138.[address] Luis Cortés Work Phone: [facility] 02-11-2023 14:31-0400 Diastolic blood pressure 84 mm[Hg] Dr. Luis Cortés Work Phone: [facility] 02-11-2023 14:31-0400 Heart rate 70 /min Dr. Luis Cortés Work Phone: [facility] 02-11-2023 14:31-0400 Respiratory rate 18 /min Dr. Luis Cortés Work Phone: [facility] 02-11-2023 14:31-0400 SaO2% (BldA) [Mass fraction] 96 % Dr. Luis Cortés Work Phone: [facility] 02-11-2023 14:31-0400 Systolic blood pressure 138 mm[Hg] Dr. Luis Cortés Work Phone: [facility] 12-24-2022 14:19-0400 Body mass index (BMI) [Ratio] 50.5 kg/m2 Dr. Luis Cortés Work Phone: [facility] 12-24-2022 14:19-0400 Body temperature 97.1 [degF] Dr. Luis Cortés Work Phone: [facility] 12-24-2022 14:19-0400 Body weight 142.[address] Luis Cortés Work Phone: [facility] 12-24-2022 14:19-0400 Diastolic blood pressure 68 mm[Hg] Dr. Luis Cortés Work Phone: [facility] 12-24-2022 14:19-0400 Heart rate 73 /min Dr. Luis Cortés Work Phone: [facility] 12-24-2022 14:19-0400 Respiratory rate 16 /min Dr. Luis Cortés Work Phone: [facility] 12-24-2022 14:19-0400 SaO2% (BldA) [Mass fraction] 94 % Dr. Luis Cortés Work Phone: [facility] 12-24-2022 14:19-0400 Systolic blood pressure 112 mm[Hg] Dr. Luis Cortés Work Phone: [facility] 11-02-2022 14:13-0400 Body mass index (BMI) [Ratio] 50.6 kg/m2 Dr. Luis Cortés Work Phone: [facility] 11-02-2022 14:13-0400 Body temperature 97.4 [degF] Dr. Luis Cortés Work Phone: [facility] 11-02-2022 14:13-0400 Body weight 142.[address] Luis Cortés Work Phone: [facility] 11-02-2022 14:13-0400 Diastolic blood pressure 86 mm[Hg] Dr. Luis Cortés Work Phone: [facility] 11-02-2022 14:13-0400 Heart rate 76 /min Dr. Luis Cortés Work Phone: [facility] 11-02-2022 14:13-0400 Respiratory rate 16 /min Dr. Luis Cortés Work Phone: [facility] 11-02-2022 14:13-0400 SaO2% (BldA) [Mass fraction] 95 % Dr. Luis Cortés Work Phone: [facility] 11-02-2022 14:13-0400 Systolic blood pressure 140 mm[Hg] Dr. Luis Coréts Work Phone: [facility] 10-09-2022 13:11-0400 Body mass index (BMI) [Ratio] 50.7 kg/m2 Dr. Luis Cortés Work Phone: [facility] 10-09-2022 13:11-0400 Body temperature 97.8 [degF] Dr. Luis Cortés Work Phone: [facility] 10-09-2022 13:11-0400 Diastolic blood pressure 93 mm[Hg] Dr. Luis Cortés Work Phone: [facility] 10-09-2022 13:11-0400 Heart rate 84 /min Dr. Luis Cortés Work Phone: [facility] 10-09-2022 13:11-0400 Respiratory rate 18 /min Dr. Luis Cortés Work Phone: [facility] 10-09-2022 13:11-0400 Systolic blood pressure 167 mm[Hg] Dr. Luis Cortés Work Phone: [facility] 10-01-2022 08:02-0400 Body height 167.[address] Luis Cortés Work Phone: [facility] 10-01-2022 08:02-0400 Body mass index (BMI) [Ratio] 50 kg/m2 Dr. Luis Cortés Work Phone: [facility] 10-01-2022 08:02-0400 Body temperature 97.8 [degF] Dr. Luis Cortés Work Phone: [facility] 10-01-2022 08:02-0400 Body weight 140.[address] Luis Cortés Work Phone: [facility] 10-01-2022 08:02-0400 Diastolic blood pressure 80 mm[Hg] Dr. Luis Cortés Work Phone: [facility] 10-01-2022 08:02-0400 Heart rate 76 /min Dr. Luis Cortés Work Phone: [facility] 10-01-2022 08:02-0400 Respiratory rate 20 /min Dr. Luis Cortés Work Phone: [facility] 10-01-2022 08:02-0400 SaO2% (BldA) [Mass fraction] 90 % Dr. Luis Cortés Work Phone: [facility] 10-01-2022 08:02-0400 Systolic blood pressure 156 mm[Hg] Dr. Luis Cortés Work Phone: [facility] 09-24-2022 13:17-0400 Body mass index (BMI) [Ratio] 50.5 kg/m2 Dr. Luis Cortés Work Phone: [facility] 09-24-2022 13:17-0400 Body temperature 97.3 [degF] Dr. Luis Cortés Work Phone: [facility] 09-24-2022 13:17-0400 Body weight 142.[address] Luis Cortés Work Phone: [facility] 09-24-2022 13:17-0400 Diastolic blood pressure 68 mm[Hg] Dr. Luis Cortés Work Phone: [facility] 09-24-2022 13:17-0400 Heart rate 73 /min Dr. Luis Cortés Work Phone: [facility] 09-24-2022 13:17-0400 Respiratory rate 19 /min Dr. Luis Cortés Work Phone: [facility] 09-24-2022 13:17-0400 SaO2% (BldA) [Mass fraction] 91 % Dr. Luis Cortés Work Phone: [facility] 09-24-2022 13:17-0400 Systolic blood pressure 136 mm[Hg] Dr. Luis Cortés Work Phone: [facility] 09-19-2022 02:06-0400 Body weight 142.[address] Luis Cortés Work Phone: [facility] 09-18-2022 13:44-0400 Body mass index (BMI) [Ratio] 50.7 kg/m2 Dr. Luis Cortés Work Phone: [facility] 09-18-2022 13:44-0400 Body temperature 96.5 [degF] Dr. Luis Cortés Work Phone: [facility] 09-18-2022 13:44-0400 Diastolic blood pressure 82 mm[Hg] Dr. Luis Cortés Work Phone: [facility] 09-18-2022 13:44-0400 Heart rate 83 /min Dr. Luis Cortés Work Phone: [facility] 09-18-2022 13:44-0400 Respiratory rate 22 /min Dr. Luis Cortés Work Phone: [facility] 09-18-2022 13:44-0400 Systolic blood pressure 196 mm[Hg] Dr. Luis Cortés Work Phone: [facility] 08-19-2022 00:37-0500 Body weight 142.[address] Luis Cortés Work Phone: [facility] 08-14-2022 10:19-0500 Body height 167.[address] Luis Cortés Work Phone: [facility] 08-14-2022 10:19-0500 Body mass index (BMI) [Ratio] 50.7 kg/m2 Dr. Luis Cortés Work Phone: [facility] 08-14-2022 10:19-0500 Body temperature 97.1 [degF] Dr. Luis Cortés Work Phone: [facility] 08-14-2022 10:19-0500 Body weight 142.[address] Luis Cortés Work Phone: [facility] 08-05-2022 16:28-0500 Body height 167.[address] Luis Cortés Work Phone: [facility] 08-05-2022 16:28-0500 Body mass index (BMI) [Ratio] 50.6 kg/m2 Dr. Luis Cortés Work Phone: [facility] 08-05-2022 16:28-0500 Body temperature 97.9 [degF] Dr. Luis Cortés Work Phone: [facility] 08-05-2022 16:28-0500 Body weight 142.[address] Luis Cortés Work Phone: [facility] 08-05-2022 16:28-0500 Diastolic blood pressure 78 mm[Hg] Dr. Luis Cortés Work Phone: [facility] 08-05-2022 16:28-0500 Heart rate 68 /min Dr. Luis Cortés Work Phone: [facility] 08-05-2022 16:28-0500 Respiratory rate 12 /min Dr. Luis Cortés Work Phone: [facility] 08-05-2022 16:28-0500 SaO2% (BldA) [Mass fraction] 94 % Dr. Luis Cortés Work Phone: [facility] 08-05-2022 16:28-0500 Systolic blood pressure 138 mm[Hg] Dr. Luis Cortés Work Phone: [facility] 08-04-2022 13:13-0500 Body mass index (BMI) [Ratio] 51 kg/m2 Dr. Luis Cortés Work Phone: [facility] 08-04-2022 13:13-0500 Body weight 143.[address] Luis Cortés Work Phone: [facility] 08-04-2022 13:13-0500 Diastolic blood pressure 72 mm[Hg] Dr. Luis Cortés Work Phone: [facility] 08-04-2022 13:13-0500 Heart rate 64 /min Dr. Luis Cortés Work Phone: [facility] 08-04-2022 13:13-0500 Respiratory rate 18 /min Dr. Luis Cortés Work Phone: [facility] 08-04-2022 13:13-0500 Systolic blood pressure 132 mm[Hg] Dr. Luis Cortés Work Phone: [facility] 07-23-2022 10:28-0500 Body mass index (BMI) [Ratio] 51.3 kg/m2 Dr. Luis Cortés Work Phone: [facility] 07-23-2022 10:28-0500 Body temperature 98.2 [degF] Dr. Luis Cortés Work Phone: [facility] 07-23-2022 10:28-0500 Body weight 144.[address] Luis Cortés Work Phone: [facility] 07-23-2022 10:28-0500 Diastolic blood pressure 65 mm[Hg] Dr. Luis Cortés Work Phone: [facility] 07-23-2022 10:28-0500 Heart rate 65 /min Dr. Luis Cortés Work Phone: [facility] 07-23-2022 10:28-0500 Respiratory rate 17 /min Dr. Luis Cortés Work Phone: [facility] 07-23-2022 10:28-0500 SaO2% (BldA) [Mass fraction] 86 % Dr. Luis Cortés Work Phone: [facility] 07-23-2022 10:28-0500 Systolic blood pressure 122 mm[Hg] Dr. Luis Cortés Work Phone: [facility] 07-06-2022 13:04-0500 Body mass index (BMI) [Ratio] 50.3 kg/m2 Dr. Luis Cortés Work Phone: [facility] 07-06-2022 13:04-0500 Body temperature 97.8 [degF] Dr. Luis Cortés Work Phone: [facility] 07-06-2022 13:04-0500 Body weight 141.[address] Luis Cortés Work Phone: [facility] 07-06-2022 13:04-0500 Diastolic blood pressure 100 mm[Hg] Dr. Luis Cortés Work Phone: [facility] 07-06-2022 13:04-0500 Heart rate 68 /min Dr. Luis Cortés Work Phone: [facility] 07-06-2022 13:04-0500 Respiratory rate 16 /min Dr. Luis Cortés Work Phone: [facility] 07-06-2022 13:04-0500 SaO2% (BldA) [Mass fraction] 96 % Dr. Luis Cortés Work Phone: [facility] 07-06-2022 13:04-0500 Systolic blood pressure 150 mm[Hg] Dr. Luis Cortés Work Phone: [facility] 06-05-2022 08:00-0500 Body temperature 97.7 [degF] Dr. Luis Cortés Work Phone: [facility] 06-05-2022 08:00-0500 Diastolic blood pressure 64 mm[Hg] Dr. Luis Cortés Work Phone: [facility] 06-05-2022 08:00-0500 Heart rate 88 /min Dr. Luis Cortés Work Phone: [facility] 06-05-2022 08:00-0500 Inhaled oxygen flow rate 2 L/min Dr. Luis Cortés Work Phone: [facility] 06-05-2022 08:00-0500 Respiratory rate 16 /min Dr. Luis Cortés Work Phone: [facility] 06-05-2022 08:00-0500 SaO2% (BldA) [Mass fraction] 91 % Dr. Luis Cortés Work Phone: [facility] 06-05-2022 08:00-0500 Systolic blood pressure 142 mm[Hg] Dr. Luis Cortés Work Phone: [facility] 06-05-2022 06:57-0500 Body height 167.[address] Luis Cortés Work Phone: [facility] Work Phone: 06-05-2022 06:57-0500 Body mass index (BMI) [Ratio] 50.5 kg/m2 Dr. Luis Cortés Work Phone: [facility] 06-05-2022 06:57-0500 Body weight [address] Luis Cortés Work Phone: [facility] 06-01-2022 09:40-0500 Body mass index (BMI) [Ratio] 50.5 kg/m2 Dr. Luis Cortés Work Phone: [facility] 06-01-2022 09:40-0500 Diastolic blood pressure 82 mm[Hg] Dr. Luis Cortés Work Phone: [facility] 06-01-2022 09:40-0500 Systolic blood pressure 156 mm[Hg] Dr. Luis Cortés Work Phone: [facility] 06-01-2022 09:38-0500 Body weight 141.[address] Luis Cortés Work Phone: [facility] 06-01-2022 09:38-0500 Respiratory rate 18 /min Dr. Luis Cortés Work Phone: [facility] 05-11-2022 14:54-0500 Body height 167.[address] Luis Cortés Work Phone: [facility] Work Phone: 05-11-2022 14:54-0500 Body mass index (BMI) [Ratio] 49.5 kg/m2 Dr. Luis Cortés Work Phone: [facility] 05-11-2022 14:54-0500 Body temperature 97.9 [degF] Dr. Luis Cortés Work Phone: [facility] 05-11-2022 14:54-0500 Body weight 139.[address] Luis Cortés Work Phone: [facility] 05-11-2022 14:54-0500 Diastolic blood pressure 82 mm[Hg] Dr. Luis Cortés Work Phone: [facility] 05-11-2022 14:54-0500 Heart rate 70 /min Dr. Luis Cortés Work Phone: [facility] 05-11-2022 14:54-0500 Respiratory rate 18 /min Dr. Luis Cortés Work Phone: [facility] 05-11-2022 14:54-0500 SaO2% (BldA) [Mass fraction] 88 % Dr. Luis Cortés Work Phone: [facility] 05-11-2022 14:54-0500 Systolic blood pressure 147 mm[Hg] Dr. Luis Cortés Work Phone: [facility] 05-08-2022 13:03-0500 Body mass index (BMI) [Ratio] 50.5 kg/m2 Dr. Luis Cortés Work Phone: [facility] 05-08-2022 13:03-0500 Body temperature 98.2 [degF] Dr. Luis Cortés Work Phone: [facility] 05-08-2022 13:03-0500 Body weight 142.[address] Luis Cortés Work Phone: [facility] 05-08-2022 13:03-0500 Diastolic blood pressure 78 mm[Hg] Dr. Luis Cortés Work Phone: [facility] 05-08-2022 13:03-0500 Heart rate 75 /min Dr. Luis Cortés Work Phone: [facility] 05-08-2022 13:03-0500 Respiratory rate 22 /min Dr. Luis Cortés Work Phone: [facility] 05-08-2022 13:03-0500 SaO2% (BldA) [Mass fraction] 92 % Dr. Luis Cortés Work Phone: [facility] 05-08-2022 13:03-0500 Systolic blood pressure 180 mm[Hg] Dr. Luis Cortés Work Phone: [facility] 04-14-2022 14:04-0400 Body mass index (BMI) [Ratio] 49.7 kg/m2 Dr. Luis Cortés Work Phone: [facility] 04-14-2022 14:04-0400 Body temperature 98.7 [degF] Dr. Luis Cortés Work Phone: [facility] 04-14-2022 14:04-0400 Body weight 139.[address] Luis Cortés Work Phone: [facility] 04-14-2022 14:04-0400 Diastolic blood pressure 70 mm[Hg] Dr. Luis Cortés Work Phone: [facility] 04-14-2022 14:04-0400 Heart rate 93 /min Dr. Luis Cortés Work Phone: [facility] 04-14-2022 14:04-0400 Respiratory rate 16 /min Dr. Luis Cortés Work Phone: [facility] 04-14-2022 14:04-0400 Systolic blood pressure 97 mm[Hg] Dr. Luis Cortés Work Phone: [facility] 04-14-2022 13:18-0400 Diastolic blood pressure 80 mm[Hg] Dr. Luis Cortés Work Phone: [facility] 04-14-2022 13:18-0400 Heart rate 82 /min Dr. Luis Cortés Work Phone: [facility] 04-14-2022 13:18-0400 SaO2% (BldA) [Mass fraction] 89 % Dr. Luis Cortés Work Phone: [facility] 04-14-2022 13:18-0400 Systolic blood pressure 148 mm[Hg] Dr. Luis Cortés Work Phone: [facility] 04-07-2022 14:41-0400 Body mass index (BMI) [Ratio] 49.2 kg/m2 Dr. Luis Cortés Work Phone: [facility] Work Phone: 04-07-2022 14:41-0400 Body temperature 96.2 [degF] Dr. Luis Cortés Work Phone: [facility] Work Phone: 04-07-2022 14:41-0400 Body weight 138.[address] Luis Cortés Work Phone: [facility] Work Phone: 04-07-2022 14:41-0400 Diastolic blood pressure 88 mm[Hg] Dr. Luis Cortés Work Phone: [facility] Work Phone: 04-07-2022 14:41-0400 Heart rate 79 /min Dr. Luis Cortés Work Phone: [facility] Work Phone: 04-07-2022 14:41-0400 Respiratory rate 20 /min Dr. Luis Cortés Work Phone: [facility] Work Phone: 04-07-2022 14:41-0400 SaO2% (BldA) [Mass fraction] 90 % Dr. Luis Cortés Work Phone: [facility] Work Phone: 04-07-2022 14:41-0400 Systolic blood pressure 132 mm[Hg] Dr. Luis Cortés Work Phone: [facility] Work Phone: 04-01-2022 10:39-0400 Body mass index (BMI) [Ratio] 50 kg/m2 Dr. Luis Cortés Work Phone: [facility] Work Phone: 04-01-2022 10:39-0400 Body temperature 98.2 [degF] Dr. Luis Cortés Work Phone: [facility] Work Phone: 04-01-2022 10:39-0400 Body weight 140.[address] Luis Cortés Work Phone: [facility] Work Phone: 04-01-2022 10:39-0400 Diastolic blood pressure 75 mm[Hg] Dr. Luis Cortés Work Phone: [facility] Work Phone: 04-01-2022 10:39-0400 Heart rate 78 /min Dr. Luis Cortés Work Phone: [facility] Work Phone: 04-01-2022 10:39-0400 Respiratory rate 16 /min Dr. Luis Cortés Work Phone: [facility] Work Phone: 04-01-2022 10:39-0400 SaO2% (BldA) [Mass fraction] 89 % Dr. Luis Cortés Work Phone: [facility] Work Phone: 04-01-2022 10:39-0400 Systolic blood pressure 144 mm[Hg] Dr. Luis Cortés Work Phone: [facility] Work Phone: 03-24-2022 14:05-0400 Body temperature 97.3 [degF] Dr. Luis Cortés Work Phone: [facility] Work Phone: 03-24-2022 14:05-0400 Diastolic blood pressure 88 mm[Hg] Dr. Luis Cortés Work Phone: [facility] Work Phone: 03-24-2022 14:05-0400 Heart rate 85 /min Dr. Luis Cortés Work Phone: [facility] Work Phone: 03-24-2022 14:05-0400 Respiratory rate 18 /min Dr. Luis Cortés Work Phone: [facility] Work Phone: 03-24-2022 14:05-0400 Systolic blood pressure 149 mm[Hg] Dr. Luis Cortés Work Phone: [facility] Work Phone: 03-20-2022 13:18-0400 Body temperature 97.8 [degF] Dr. Luis Cortés Work Phone: [facility] Work Phone: 03-20-2022 13:18-0400 Diastolic blood pressure 82 mm[Hg] Dr. Luis Cortés Work Phone: [facility] Work Phone: 03-20-2022 13:18-0400 Heart rate 96 /min Dr. Luis Cortés Work Phone: [facility] Work Phone: 03-20-2022 13:18-0400 Respiratory rate 18 /min Dr. Luis Cortés Work Phone: [facility] Work Phone: 03-20-2022 13:18-0400 Systolic blood pressure 140 mm[Hg] Dr. Luis Cortés Work Phone: [facility] Work Phone: 02-24-2022 14:15-0400 Body temperature 96.9 [degF] Dr. Luis Cortés Work Phone: [facility] Work Phone: 02-24-2022 14:15-0400 Diastolic blood pressure 91 mm[Hg] Dr. Luis Cortés Work Phone: [facility] Work Phone: 02-24-2022 14:15-0400 Heart rate 94 /min Dr. Luis Cortés Work Phone: [facility] Work Phone: 02-24-2022 14:15-0400 Respiratory rate 20 /min Dr. Luis Cortés Work Phone: [facility] Work Phone: 02-24-2022 14:15-0400 Systolic blood pressure 142 mm[Hg] Dr. Luis Cortés Work Phone: [facility] Work Phone: 02-16-2022 10:47-0400 Body temperature 97.1 [degF] Dr. Luis Cortés Work Phone: [facility] Work Phone: 02-16-2022 10:47-0400 Diastolic blood pressure 73 mm[Hg] Dr. Luis Cortés Work Phone: [facility] Work Phone: 02-16-2022 10:47-0400 Heart rate 74 /min Dr. Luis Cortés Work Phone: [facility] Work Phone: 02-16-2022 10:47-0400 Systolic blood pressure 150 mm[Hg] Dr. Luis Cortés Work Phone: [facility] Work Phone: 01-30-2022 11:09-0400 Body temperature 97 [degF] Dr. Luis Coréts Work Phone: [facility] Work Phone: 01-30-2022 11:09-0400 Body weight 141.[address] Luis Cortés Work Phone: [facility] Work Phone: 01-30-2022 11:09-0400 Diastolic blood pressure 78 mm[Hg] Dr. Luis Cortés Work Phone: [facility] Work Phone: 01-30-2022 11:09-0400 Heart rate 101 /min Dr. Luis Cortés Work Phone: [facility] Work Phone: 01-30-2022 11:09-0400 Respiratory rate 18 /min Dr. Luis Cortés Work Phone: [facility] Work Phone: 01-30-2022 11:09-0400 SaO2% (BldA) [Mass fraction] 95 % Dr. Luis Cortés Work Phone: [facility] Work Phone: 01-30-2022 11:09-0400 Systolic blood pressure 140 mm[Hg] Dr. Luis Cortés Work Phone: [facility] Work Phone: 12-31-2021 01:39-0400 Body height 167.[address] Luis Cortés Work Phone: [facility] Work Phone: 12-31-2021 01:39-0400 Body mass index (BMI) [Ratio] 50 kg/m2 Dr. Luis Cortés Work Phone: [facility] Work Phone: 12-31-2021 01:39-0400 Body temperature 98.8 [degF] Dr. Luis Cortés Work Phone: [facility] Work Phone: 12-31-2021 01:39-0400 Body weight 140.[address] Luis Cortés Work Phone: [facility] Work Phone: 12-31-2021 01:39-0400 Diastolic blood pressure 81 mm[Hg] Dr. Luis Cortés Work Phone: [facility] Work Phone: 12-31-2021 01:39-0400 Heart rate 101 /min Dr. Luis Cortés Work Phone: [facility] Work Phone: 12-31-2021 01:39-0400 Respiratory rate 22 /min Dr. Luis Cortés Work Phone: [facility] Work Phone: 12-31-2021 01:39-0400 SaO2% (BldA) [Mass fraction] 95 % Dr. Luis Cortés Work Phone: [facility] Work Phone: 12-31-2021 01:39-0400 Systolic blood pressure 170 mm[Hg] Dr. Luis Cortés Work Phone: [facility] Work Phone: 10-29-2021 11:09-0400 Body mass index (BMI) [Ratio] 50.8 kg/m2 Dr. Luis Cortés Work Phone: [facility] Work Phone: 10-29-2021 11:09-0400 Body temperature 96.2 [degF] Dr. Luis Cortés Work Phone: [facility] Work Phone: 10-29-2021 11:09-0400 Body weight 142.[address] Luis Cortés Work Phone: [facility] Work Phone: 10-29-2021 11:09-0400 Diastolic blood pressure 90 mm[Hg] Dr. Luis Cortés Work Phone: [facility] Work Phone: 10-29-2021 11:09-0400 Heart rate 93 /min Dr. Luis Cortés Work Phone: [facility] Work Phone: 10-29-2021 11:09-0400 Respiratory rate 16 /min Dr. Luis Cortés Work Phone: [facility] Work Phone: 10-29-2021 11:09-0400 SaO2% (BldA) [Mass fraction] 92 % Dr. Luis Cortés Work Phone: [facility] Work Phone: 10-29-2021 11:09-0400 Systolic blood pressure 164 mm[Hg] Dr. Luis Cortés Work Phone: [facility] Work Phone: 10-29-2021 11:09-0400 Body height 167.[address] Luis Cortés Work Phone: [facility] Work Phone: 10-29-2021 11:09-0400 Body mass index (BMI) [Ratio] 50.8 kg/m2 Dr. Luis Cortés Work Phone: [facility] Work Phone: 10-29-2021 11:09-0400 Body temperature 96.2 [degF] Dr. Luis Cortés Work Phone: [facility] Work Phone: 10-29-2021 11:09-0400 Body weight 142.[address] Luis Cortés Work Phone: [facility] Work Phone: 10-29-2021 11:09-0400 Diastolic blood pressure 90 mm[Hg] Dr. Luis Cortés Work Phone: [facility] Work Phone: 10-29-2021 11:09-0400 Heart rate 93 /min Dr. Luis Cortés Work Phone: [facility] Work Phone: 10-29-2021 11:09-0400 Respiratory rate 16 /min Dr. Luis Cortés Work Phone: [facility] Work Phone: 10-29-2021 11:09-0400 SaO2% (BldA) [Mass fraction] 92 % Dr. Luis Cortés Work Phone: [facility] Work Phone: 10-29-2021 11:09-0400 Systolic blood pressure 164 mm[Hg] Dr. Luis Cortés Work Phone: [facility] Work Phone: 10-06-2021 11:01-0400 Body mass index (BMI) [Ratio] 50.8 kg/m2 Dr. Luis Cortés Work Phone: [facility] Work Phone: 10-06-2021 11:01-0400 Body temperature 97.4 [degF] Dr. Luis Cortés Work Phone: [facility] Work Phone: 10-06-2021 11:01-0400 Body weight 142.[address] Luis Cortés Work Phone: [facility] Work Phone: 10-06-2021 11:01-0400 Diastolic blood pressure 88 mm[Hg] Dr. Luis Cortés Work Phone: [facility] Work Phone: 10-06-2021 11:01-0400 Heart rate 98 /min Dr. Luis Cortés Work Phone: [facility] Work Phone: 10-06-2021 11:01-0400 Respiratory rate 19 /min Dr. Luis Cortés Work Phone: [facility] Work Phone: 10-06-2021 11:01-0400 SaO2% (BldA) [Mass fraction] 93 % Dr. Luis Cortés Work Phone: [facility] Work Phone: 10-06-2021 11:01-0400 Systolic blood pressure 144 mm[Hg] Dr. Luis Cortés Work Phone: [facility] Work Phone: 10-06-2021 11:01-0400 Body height 167.[address] Luis Cortés Work Phone: [facility] Work Phone: 10-06-2021 11:01-0400 Body mass index (BMI) [Ratio] 50.8 kg/m2 Dr. Luis Cortés Work Phone: [facility] Work Phone: 10-06-2021 11:01-0400 Body temperature 97.4 [degF] Dr. Luis Cortés Work Phone: [facility] Work Phone: 10-06-2021 11:01-0400 Body weight 142.[address] Luis Cortés Work Phone: [facility] Work Phone: 10-06-2021 11:01-0400 Diastolic blood pressure 88 mm[Hg] Dr. Luis Cortés Work Phone: [facility] Work Phone: 10-06-2021 11:01-0400 Heart rate 98 /min Dr. Luis Cortés Work Phone: [facility] Work Phone: 10-06-2021 11:01-0400 Respiratory rate 19 /min Dr. Luis Cortés Work Phone: [facility] Work Phone: 10-06-2021 11:01-0400 SaO2% (BldA) [Mass fraction] 93 % Dr. Luis Cortés Work Phone: [facility] Work Phone: 10-06-2021 11:01-0400 Systolic blood pressure 144 mm[Hg] Dr. Luis Cortés Work Phone: [facility] Work Phone: 09-29-2021 12:30-0400 Body height 167.[address] Luis Cortés Work Phone: [facility] Work Phone: 09-29-2021 12:30-0400 Body weight 132.[address] Luis Cortés Work Phone: [facility] Work Phone: 09-29-2021 12:30-0400 Heart rate 89 /min Dr. Luis Cortés Work Phone: [facility] Work Phone: 09-29-2021 12:30-0400 Inhaled oxygen concentration 28 % Dr. Luis Cortés Work Phone: [facility] Work Phone: 09-29-2021 12:30-0400 SaO2% (BldA) [Mass fraction] 91 % Dr. Luis Cortés Work Phone: [facility] Work Phone: 09-02-2021 11:09-0400 Body mass index (BMI) [Ratio] 47.2 kg/m2 Dr. Luis Cortés Work Phone: [facility] Work Phone: 09-02-2021 11:09-0400 Body temperature 97.3 [degF] Dr. Luis Cortés Work Phone: [facility] Work Phone: 09-02-2021 11:09-0400 Body weight 132.[address] Luis Cortés Work Phone: [facility] Work Phone: 09-02-2021 11:09-0400 Diastolic blood pressure 86 mm[Hg] Dr. Luis Cortés Work Phone: [facility] Work Phone: 09-02-2021 11:09-0400 Heart rate 94 /min Dr. Luis Cortés Work Phone: [facility] Work Phone: 09-02-2021 11:09-0400 Respiratory rate 18 /min Dr. Luis Cortés Work Phone: [facility] Work Phone: 09-02-2021 11:09-0400 SaO2% (BldA) [Mass fraction] 94 % Dr. Luis Cortés Work Phone: [facility] Work Phone: 09-02-2021 11:09-0400 Systolic blood pressure 132 mm[Hg] Dr. Luis Cortés Work Phone: [facility] Work Phone: 07-22-2021 08:25-0500 Body mass index (BMI) [Ratio] 49.7 kg/m2 Dr. Luis Cortés Work Phone: [facility] Work Phone: 07-22-2021 08:25-0500 Body temperature 96.4 [degF] Dr. Luis Cortés Work Phone: [facility] Work Phone: 07-22-2021 08:25-0500 Body weight 139.[address] Luis Cortés Work Phone: [facility] Work Phone: 07-22-2021 08:25-0500 Diastolic blood pressure 72 mm[Hg] Dr. Luis Cortés Work Phone: [facility] Work Phone: 07-22-2021 08:25-0500 Heart rate 69 /min Dr. Luis Cortés Work Phone: [facility] Work Phone: 07-22-2021 08:25-0500 Respiratory rate 16 /min Dr. Luis Cortés Work Phone: [facility] Work Phone: 07-22-2021 08:25-0500 SaO2% (BldA) [Mass fraction] 93 % Dr. Luis Cortés Work Phone: [facility] Work Phone: 07-22-2021 08:25-0500 Systolic blood pressure 140 mm[Hg] Dr. Luis Cortés Work Phone: [facility] Work Phone: 06-09-2021 09:55-0500 Body mass index (BMI) [Ratio] 49.2 kg/m2 Dr. Luis Cortés Work Phone: [facility] Work Phone: 06-09-2021 09:55-0500 Body weight 138.[address] Luis Cortés Work Phone: [facility] Work Phone: 06-09-2021 09:55-0500 Diastolic blood pressure 68 mm[Hg] Dr. Luis Cortés Work Phone: [facility] Work Phone: 06-09-2021 09:55-0500 Heart rate 70 /min Dr. Luis Cortés Work Phone: [facility] Work Phone: 06-09-2021 09:55-0500 Respiratory rate 18 /min Dr. Luis Cortés Work Phone: [facility] Work Phone: 06-09-2021 09:55-0500 SaO2% (BldA) [Mass fraction] 93 % Dr. Luis Cortés Work Phone: [facility] Work Phone: 06-09-2021 09:55-0500 Systolic blood pressure 131 mm[Hg] Dr. Luis Cortés Work Phone: [facility] Work Phone: 10-03-2020 09:24-0400 BMI (Body Mass Index) 51.62 kg/m2 [facility] 10-03-2020 09:24-0400 Body Temperature 97.11 [degF] [facility] 10-03-2020 09:24-0400 Body weight 145.06 kg [facility] 10-03-2020 09:24-0400 BP Diastolic 74 mm[Hg] [facility] 10-03-2020 09:24-0400 BP Systolic 125 mm[Hg] [facility] 10-03-2020 09:24-0400 Height 167.6 cm [facility] 10-03-2020 09:24-0400 Pulse (Heart Rate) 70 /min [facility] 10-03-2020 09:24-0400 Pulse Oximetry 95 % [facility] 09-09-2020 10:36-0400 BP Diastolic 80 mm[Hg] [facility] 09-09-2020 10:36-0400 BP Systolic 153 mm[Hg] [facility] 09-09-2020 10:35-0400 Pulse (Heart Rate) 68 /min [facility] 09-09-2020 10:33-0400 BMI (Body Mass Index) 50.04 kg/m2 [facility] 09-09-2020 10:33-0400 Body Temperature 97.39 [degF] [facility] 09-09-2020 10:33-0400 Body weight 140.62 kg [facility] 09-09-2020 10:33-0400 Height 167.6 cm [facility] 09-09-2020 10:33-0400 Pulse Oximetry 94 % [facility] 05-24-2020 11:11-0500 BMI (Body Mass Index) 50.39 kg/m2 [facility] 05-24-2020 11:11-0500 Body Temperature 98.6 [degF] [facility] 05-24-2020 11:11-0500 Body weight 141.61 kg [facility] 05-24-2020 11:11-0500 BP Diastolic 83 mm[Hg] [facility] 05-24-2020 11:11-0500 BP Systolic 136 mm[Hg] [facility] 05-24-2020 11:11-0500 Height 167.6 cm [facility] 05-24-2020 11:11-0500 Pulse (Heart Rate) 68 /min [facility] 05-24-2020 11:11-0500 Pulse Oximetry 94 % [facility] 02-16-2020 11:22-0400 BMI (Body Mass Index) 50.04 kg/m2 [facility] 02-16-2020 11:22-0400 Body Temperature 97.9 [degF] [facility] 02-16-2020 11:22-0400 Body weight 140.62 kg [facility] 02-16-2020 11:22-0400 BP Diastolic 83 mm[Hg] [facility] 02-16-2020 11:22-0400 BP Systolic 150 mm[Hg] [facility] 02-16-2020 11:22-0400 Height 167.6 cm [facility] 02-16-2020 11:22-0400 Pulse (Heart Rate) 66 /min Paul Hurley [facility] 02-16-2020 11:22-0400 Pulse Oximetry 93 % [facility] 01-28-2020 14:22-0400 Body Temperature 97.81 [degF] Durga [facility] 01-28-2020 14:22-0400 BP Diastolic 107 mm[Hg] Durga [facility] 01-28-2020 14:22-0400 BP Systolic 173 mm[Hg] Durga [facility] 01-28-2020 14:22-0400 Pulse (Heart Rate) 73 /min [facility] 01-28-2020 14:22-0400 Pulse Oximetry 95 % [facility] 01-28-2020 14:22-0400 Respiratory Rate 18 /min Durga [facility] 06-30-2019 07:11-0500 Body Temperature 97.7 [degF] [facility] 06-30-2019 07:11-0500 BP Diastolic 70 mm[Hg] [facility] 06-30-2019 07:11-0500 BP Systolic 135 mm[Hg] [facility] 06-30-2019 07:11-0500 Pulse (Heart Rate) 71 /min [facility] 06-30-2019 07:11-0500 Respiratory Rate 20 /min [facility] 06-23-2019 07:54-0500 Height 167.6 cm [facility] 06-23-2019 07:48-0500 Body Temperature 97.5 [degF] [facility] 06-23-2019 07:48-0500 BP Diastolic 79 mm[Hg] [facility] 06-23-2019 07:48-0500 BP Systolic 149 mm[Hg] [facility] 06-23-2019 07:48-0500 Pulse (Heart Rate) 77 /min [facility] 06-23-2019 07:48-0500 Pulse Oximetry 96 % [facility] 06-23-2019 07:48-0500 Respiratory Rate 20 /min [facility] 06-19-2019 11:35-0500 Body Temperature 97.3 [degF] Marilyn Pantoja [facility] 06-19-2019 11:35-0500 BP Diastolic 73 mm[Hg] [facility] 06-19-2019 11:35-0500 BP Systolic 123 mm[Hg] [facility] 06-19-2019 11:35-0500 Pulse (Heart Rate) 63 /min [facility] 06-19-2019 11:35-0500 Pulse Oximetry 91 % [facility] 06-19-2019 11:35-0500 Respiratory Rate 16 /min [facility] 06-09-2019 08:12-0500 Body Temperature 97.3 [degF] Abilio [facility] 06-09-2019 08:12-0500 BP Diastolic 78 mm[Hg] [facility] 06-09-2019 08:12-0500 BP Systolic 135 mm[Hg] [facility] 06-09-2019 08:12-0500 Pulse (Heart Rate) 63 /min [facility] 06-09-2019 08:12-0500 Pulse Oximetry 93 % [facility] 06-09-2019 08:12-0500 Respiratory Rate 16 /min [facility] 06-02-2019 17:41-0500 BMI (Body Mass Index) 40.78 kg/m2 [facility] 06-02-2019 17:41-0500 Body weight 114.6 kg [facility] 06-02-2019 17:41-0500 [facility].6 cm [facility] 02-16-2019 09:50-0400 BMI (Body Mass Index) 50.36 kg/m2 [facility] 02-16-2019 09:50-0400 Body weight 141.52 kg [facility] 02-16-2019 09:50-0400 Height 167.6 cm [facility] 01-13-2019 08:14-0400 BMI (Body Mass Index) 51.33 kg/m2 [facility] 01-13-2019 08:14-0400 Body weight 144.24 kg [facility] 01-13-2019 08:14-0400 Height 167.6 cm [facility] 11-22-2018 11:11-0400 BMI (Body Mass Index) 51.33 kg/m2 [facility] 11-22-2018 11:11-0400 Height 167.6 cm [facility] 11-22-2018 11:11-0400 Weight 144.24 kg [facility] 10-18-2018 10:24-0400 BMI (Body Mass Index) 52.29 kg/m2 [facility] 10-18-2018 10:24-0400 Height 167.6 cm [facility] 10-18-2018 10:24-0400 Weight 146.97 kg [facility] 10-07-2018 10:02-0400 BMI (Body Mass Index) 51.65 kg/m2 [facility] 10-07-2018 10:02-0400 Height 167.6 cm [facility] 10-07-2018 10:02-0400 Weight 145.15 kg [facility] 09-16-2018 07:55-0400 BMI (Body Mass Index) 51.65 kg/m2 [facility] 09-16-2018 07:55-0400 Height 167.6 cm [facility] 09-16-2018 07:55-0400 Weight 145.15 kg [facility] Encounters Encounter Date Encounter Type Care Provider Facility Start: 05-04-2025 [facility] Facility:[facility] Start: 04-23-2025 End: 04-23-2025 ambulatory [facility] Facility:[facility] Start: 04-20-2025 End: 04-20-2025 ambulatory [facility] Facility:[facility] Start: 03-28-[address] Jon Rubio MD [facility] Start: 03-28-2025 End: 03-28-[address] Jon Rubio MD -[facility] Work Phone: Start: 03-28-2025 End: 03-28-[address] Luis Cortés MD Work Phone: [facility] Start: 03-06-2025 End: 03-06-[address] Luis Cortés MD Work Phone: -[facility] Start: 03-06-2025 End: 03-06-[address] Luis Cortés MD -[facility] Work Phone: Start: 03-06-2025 End: 03-06-2025 Dr. Luis Cortés MD -[facility] Work Phone: Start: 03-06-2025 End: 03-06-2025 ambulatory Luis Cortés Facility:[facility] Start: 2025 End: 2025 Patient encounter procedure Zainab Cherry NP-Jessika [facility] Work Phone: Start: 2025 End: 2025 Zainab Cherry NP-Jessika -[facility] Work Phone: Start: 2025 End: [address] Luis Cortés MD Work Phone: [facility] Start: 02-11-2025 End: 02-12-2025 Emergency department patient visit John Jansen MD Work Phone: [facility] Comment on above: Vertigo (Primary Dx) Start: 02-07-2025 End: 02-07-[address] Luis Cortés MD -[facility] Work Phone: Start: 02-07-2025 End: 02-07-2025 Dr. Luis Cortés MD -[facility] Work Phone: Start: 02-07-2025 End: 02-07-[address] Luis Cortés MD Work Phone: -[facility] Start: 01-30-2025 ambulatory Zainab Cherry NP Facility:[facility] Start: 01-19-2025 End: 01-19-[address] Luis Cortés MD Work Phone: -[facility] Start: 01-19-2025 End: 01-19-2025 Patient encounter procedure Ni Nessbrigetter CONTACT AGENT-C -[facility] Start: 01-19-2025 End: 01-19-2025 Ni Ungbrigetter CONTACT AGENT-C -[facility] Start: 01-19-2025 End: 01-19-2025 Patient encounter procedure Ni Ungbrigetter CONTACT AGENT-C -[facility] Work Phone: Start: 01-19-2025 End: 01-19-2025 Ni Nessnika CONTACT AGENT-C -[facility] Work Phone: Start: 01-19-2025 End: 01-19-[address] Luis Cortés MD Work Phone: -[facility] Start: 01-19-2025 End: 01-19-[address] Sneha Rosa [facility] Work Phone: Start: 01-19-2025 End: 01-19-2025 Dr. Sneha Rosa [facility] Work Phone: Start: 01-19-2025 End: 01-19-[address] Luis Cortés MD Work Phone: [facility] Start: 01-19-2025 End: 01-19-2025 ambulatory Ni Holt Facility:[facility] Start: 01-12-2025 End: 01-18-[address] Luis Cortés MD Work Phone: [facility] Start: 01-12-2025 End: 01-18-[address] Sneha Rosa DO [facility] Work Phone: Start: 01-12-2025 End: 01-18-2025 Dr. Sneha Rosa DO [facility] Work Phone: Start: 12-19-2024 Non-patient / Non-visit Dr. Alexia Cai MD -[facility] Work Phone: Start: 12-19-2024 Dr. Alexia Cai MD -[facility] Work Phone: Start: 12-15-2024 End: 12-18-[address] Luis Cortés MD Work Phone: [facility] Start: 12-15-2024 End: 12-18-[address] Sneha Rosa DO [facility] Work Phone: Start: 12-15-2024 End: 12-18-2024 Dr. Sneha Rosa DO [facility] Work Phone: Start: 12-07-2024 End: 12-07-2024 Patient encounter procedure Ni MONTANO -[facility] Work Phone: Start: 12-07-2024 End: 12-07-2024 Ni MONTANO -[facility] Work Phone: Start: 12-07-2024 End: 12-07-[address] Luis Cortés MD Work Phone: [facility] Work Phone: Start: 11-27-2024 End: 11-27-2024 Dr. Luis Cortés MD Work Phone: -Emergency Department Work Phone: Start: 11-27-2024 End: 11-27-2024 Emergency department patient visit Dr. Luis Cortés MD Work Phone: [facility] Work Phone: Start: 11-24-2024 ambulatory Sneha Rosa Facility:[facility] Start: 11-24-2024 Dr. Sneha Rosa DO -[facility] Work Phone: Start: 11-23-2024 [facility] Start: 11-22-2024 End: 11-22-2024 Dr. Sneha Rosa DO -Medical Out Work Phone: Start: 11-22-2024 End: 11-22-[address] Luis Cortés MD Work Phone: [facility] Work Phone: Start: 11-21-2024 Encounter for general adult medical examination without abnormal findings [facility] Start: 11-20-2024 End: 11-20-2024 Dr. Sneha Rosa DO -Medical Out Work Phone: Start: 11-20-2024 End: 11-20-[address] Luis Cortés MD Work Phone: [facility] Work Phone: Start: 11-19-2024 [facility] Start: 11-18-2024 End: 11-18-2024 Dr. Sneha Rosa DO -Medical Out Work Phone: Start: 11-18-2024 End: 11-18-[address] Luis Cortés MD Work Phone: [facility] Work Phone: Start: 11-17-2024 End: 11-18-[address] Luis Cortés MD Work Phone: [facility] Work Phone: Start: 11-17-2024 End: 11-18-2024 Dr. Sneha Rosa DO -[facility] Work Phone: Start: 11-17-2024 End: 11-17-2024 Dr. Sneha Rosa DO -Medical Out Work Phone: Start: 11-17-2024 End: 11-17-[address] Luis Cortés MD Work Phone: [facility] Work Phone: Start: 11-16-2024 End: 11-16-2024 Dr. Sneha Rosa DO -Medical Out Work Phone: Start: 11-16-2024 End: 11-16-[address] Luis Cortés MD Work Phone: [facility] Work Phone: Start: 11-15-2024 End: 11-15-[address] Sneha Rosa DO -Medical Out Work Phone: Start: 11-15-2024 End: 11-15-[address] Luis Cortés MD Work Phone: [facility] Work Phone: Start: 11-15-2024 Non-patient / Non-visit Dr. Eliud Giraldo MD -[facility] Start: 11-15-[address] Sneha Rosa DO -Cardiovascular Services Work Phone: Start: 11-15-2024 End: 11-15-2024 Dr. Sneha Rosa DO -Medical Out Work Phone: Start: 11-14-2024 End: 11-14-[address] Sneha Rosa DO -Medical Out Work Phone: Start: 11-14-2024 End: 11-14-2024 Dr. Sneha Rosa DO -Medical Out Work Phone: Start: 11-14-2024 End: 11-14-[address] Luis Cortés MD Work Phone: [facility] Work Phone: Start: 11-14-[address] Sneha Rosa DO -Radiology W Work Phone: Start: 11-14-2024 End: 11-14-2024 Dr. Sneha Rosa DO -Radiology [facility] Work Phone: Start: 11-14-2024 End: 11-14-[address] Luis Cortés MD Work Phone: [facility] Work Phone: Start: 11-10-[address] Sneha Rosa DO -[facility] Work Phone: Start: 11-06-2024 End: 11-06-[address] Luis Cortés MD -[facility] Start: 11-06-2024 End: 11-06-2024 Dr. Luis Cortés MD -[facility] Start: 11-06-2024 End: 11-06-[address] Luis Cortés MD -[facility] Work Phone: Start: 11-06-2024 End: 11-06-2024 Dr. Luis Cortés MD -[facility] Work Phone: Start: 11-06-2024 End: 11-06-[address] Luis Cortés MD Work Phone: [facility] Work Phone: Start: 11-06-2024 End: 11-06-2024 ambulatory Luis Cortés Facility:[facility] Start: 11-03-[address] Sneha Rosa DO -[facility] Work Phone: Start: 10-18-2024 End: 10-18-2024 Patient encounter procedure Dianne MONTANO -[facility] Work Phone: Start: 10-18-2024 End: 10-18-2024 Dianne MONTANO -[facility] Work Phone: Start: 10-18-2024 End: 10-18-2024 ambulatory Luis Cortés Facility:[facility] Start: 10-17-2024 Non-patient / Non-visit Zainab MONTANO -[facility] Work Phone: Start: 10-17-2024 Zainab Cherry CONTACT AGENT-C -[facility] Work Phone: Start: 10-17-2024 ambulatory Zainab Cherry CONTACT AGENT Facility:[facility] Start: 10-16-2024 ambulatory Zainab Cherry CONTACT AGENT Facility:[facility] Start: 10-16-2024 Non-patient / Non-visit Dr. Eliud Giraldo MD -[facility] Start: 10-16-2024 End: 10-16-2024 Patient encounter procedure Zainab Cherry CONTACT AGENT-C -[facility] Work Phone: Start: 10-16-2024 End: 10-16-2024 Dr. Eliud Giraldo MD -[facility] Start: 10-16-2024 End: 10-16-2024 ambulatory Zainab Cherry NP Facility:[facility] Start: 10-13-2024 End: 10-18-2024 ambulatory Molly Beck Facility:[facility] Start: 10-13-2024 End: 10-18-[address] Sneha Rosa DO -[facility] Work Phone: Start: 10-13-2024 End: 10-18-2024 Dr. Sneha Rosa DO -[facility] Work Phone: Start: 10-03-2024 End: 10-03-2024 Patient encounter procedure Zainab Cherry CONTACT AGENT-C -[facility] Work Phone: Start: 10-03-2024 End: 10-03-2024 Zainab Cherry CONTACT AGENT-C -[facility] Work Phone: Start: 10-03-2024 End: 10-03-2024 ambulatory Luis Cortés Facility:[facility] Start: 09-22-2024 ambulatory Keven Corey Facility:[facility] Start: 09-22-2024 Non-patient / Non-visit Dr. Keven Corey MD [facility] Start: 09-22-2024 Dr. Keven Corey MD [facility] Start: 09-22-2024 End: 09-22-[address] Luis Cortés MD Work Phone: [facility] Work Phone: Start: 09-22-2024 End: 09-22-2024 Patient encounter procedure Navneet Michel CONTACT AGENT-C -[facility] Work Phone: Start: 09-22-2024 End: 09-22-2024 Navneet Michel CONTACT AGENT-C -Cardiovascular Services Work Phone: Start: 09-22-2024 End: 09-22-2024 ambulatory Navneet Michel CONTACT AGENT Facility:[facility] Start: 09-15-2024 End: 09-18-[address] Luis Cortés MD Work Phone: [facility] Work Phone: Start: 09-15-2024 End: 09-18-[address] Sneha Rosa DO -[facility] Work Phone: Start: 09-15-2024 End: 09-18-2024 Dr. Sneha Rosa DO -[facility] Work Phone: Start: 09-01-[address] Sneha Rosa DO -[facility] Work Phone: Start: 08-28-2024 End: 08-28-[address] Luis Cortés MD Work Phone: [facility] Work Phone: Start: 08-28-2024 End: 08-28-2024 Patient encounter procedure Navneet Michel CONTACT AGENT-C -Laboratory Work Phone: Start: 08-28-2024 End: 08-28-2024 Navneet Michel CONTACT AGENT-C -Laboratory Work Phone: Start: 08-28-2024 End: 08-28-2024 Patient encounter procedure Navneet Michel CONTACT AGENT-C -[facility] Work Phone: Start: 08-28-2024 End: 08-28-2024 Navneet Michel CONTACT AGENT-C -[facility] Work Phone: Start: 08-28-2024 End: 08-28-2024 ambulatory Navneet Michel CONTACT AGENT Facility:[facility] Start: 08-28-2024 End: 08-28-2024 ambulatory Navneet Michel CONTACT AGENT Facility:[facility] Start: 08-18-2024 End: 08-18-2024 ambulatory Molly Beck Facility:[facility] Start: 08-18-2024 End: 08-18-[address] Sneha Rosa DO -[facility] Work Phone: Start: 08-18-2024 End: 08-18-2024 Dr. Sneha Rosa DO -[facility] Work Phone: Start: 08-17-2024 ambulatory Navneet Michel CONTACT AGENT Facility:[facility] Start: 08-15-2024 ambulatory Molly Beck Facility:[facility] Start: 08-02-2024 End: 08-02-2024 Patient encounter procedure Molly Beck [place] -[facility] Work Phone: Start: 08-02-2024 End: 08-02-2024 Molly Beck NH -[facility] Work Phone: Start: 08-02-2024 End: 08-02-2024 ambulatory Molly Beck Facility:[facility] Start: 07-31-2024 ambulatory Molly Beck Facility:[facility] Start: 07-31-2024 Non-patient / Non-visit Dr. Eliud Giraldo MD -[facility] Start: 07-31-2024 End: 07-31-[address] Eliud Giraldo MD -[facility] Work Phone: Start: 07-31-2024 End: 07-31-2024 Dr. Eliud Giraldo MD -[facility] Start: 07-31-2024 End: 07-31-2024 ambulatory Eliud Giraldo Facility:[facility] Start: 07-27-2024 ambulatory Eliud Giraldo Facility:[facility] Start: 07-27-2024 Non-patient / Non-visit Dr. Eliud Giraldo MD -[facility] Start: 07-27-2024 Dr. Eliud Giraldo MD -[facility] Start: 07-27-2024 End: 07-27-2024 Admission to same day surgery center Dr. Eliud Giraldo MD -[facility] Work[facility]per/Special Procedures Work Phone: Start: 07-27-2024 End: 07-27-2024 Dr. Eliud Giraldo MD -[facility]/Special Procedures Work Phone: Start: 07-27-2024 End: 07-27-2024 ambulatory Eliud Giraldo Facility:[facility] Start: 07-21-2024 End: 07-21-2024 ambulatory [facility] Facility:[facility] Start: 07-21-2024 End: 07-21-[address] Sneha Rosa DO -[facility] Work Phone: Start: 07-21-2024 End: 07-21-2024 Dr. Sneha Rosa DO -Wound Healing [facility] Work Phone: Start: 06-27-2024 End: 06-27-[address] Luis Cortés MD -Sleep Lab Work Phone: Start: 06-27-2024 End: 06-27-2024 ambulatory [facility] Facility:[facility] Start: 06-16-2024 End: 06-20-2024 ambulatory [facility] Facility:[facility] Start: 06-16-2024 End: 06-20-[address] Sneha Rosa DO -[facility] Work Phone: Start: 06-08-2024 End: 06-08-[address] Luis Cortés MD -[facility] Work Phone: Start: 06-08-2024 End: 06-08-2024 ambulatory [facility] Facility:[facility] Start: 06-01-2024 ambulatory [facility] Facility:[facility] Start: 06-01-2024 Non-patient / Non-visit [facility] Start: 05-12-2024 End: 05-20-2024 ambulatory [facility] Facility:[facility] Start: 05-12-2024 End: 05-20-[address] Sneha Rosa DO -Wound Healing [facility] Work Phone: Start: 05-09-2024 ambulatory [facility] Facility:[facility] Start: 09-29-2023 End: 09-29-[address] Luis Cortés Work Phone: [facility] Work Phone: Start: 09-24-[address] Luis Cortés Work Phone: [facility]-ED Referred Work Phone: Start: 09-24-2023 End: 09-24-2023 Emergency department patient visit Dr. Luis Cortés Work Phone: [facility]-Emergency Department Work Phone: Start: 09-13-[address] Luis Cortés Work Phone: [facility]-Cardiovascula r Services Work Phone: Start: 09-13-2023 Non-patient / Non-visit Dr. Luis Cortés Work Phone: [facility] Start: 09-13-2023 End: 09-13-[address] Luis Cortés Work Phone: [facility] Work Phone: Start: 09-10-2023 End: 09-19-[address] Luis Cortés Work Phone: [facility] Work Phone: Start: 09-10-2023 End: 09-19-[address] Luis Cortés Work Phone: [facility]Wound Healing [facility] Work Phone: Start: 09-01-2023 End: 09-01-[address] Luis Cortés Work Phone: [facility] Vascular Surgery Work Phone: Start: 08-13-2023 End: 08-19-[address] Luis Cortés Work Phone: [facility] Work Phone: Start: 08-13-2023 End: 08-19-[address] Luis Cortés Work Phone: [facility] Work Phone: Start: 07-30-2023 Non-patient / Non-visit Dr. Luis Cortés Work Phone: [facility] Start: 06-20-2023 End: 06-20-2023 Emergency department patient visit Dr. Luis Cortés Work Phone: [facility]-Emergency Department Work Phone: Start: 05-31-2023 End: 05-31-[address] Luis Cortés Work Phone: [facility] Work Phone: Start: 05-24-2023 End: 05-24-[address] Luis Cortés Work Phone: [facility] Work Phone: Start: 05-24-2023 End: 05-24-[address] Luis Cortés Work Phone: [facility]-Laboratory Work Phone: Start: 04-30-[address] Luis Cortés Work Phone: [facility]-Physical Therapy Work Phone: Start: 03-30-2023 End: 03-30-[address] Luis [facility] Work Phone: Start: 03-29-2023 End: 03-29-[address] Luis Cortés Work Phone: [facility] Work Phone: Start: 03-29-2023 End: 03-29-[address] Luis Cortés Work Phone: [facility] Work Phone: Start: 03-26-[address] Luis Cortés Work Phone: [facility]-Physical Therapy Work Phone: Start: 03-25-[address] Luis Cortés Work Phone: [facility] Oncology Start: 03-25-2023 End: 03-25-[address] Luis Cortés Work Phone: [facility] Work Phone: Start: 02-11-2023 End: 02-11-[address] Luis Cortés Work Phone: [facility] Work Phone: Start: 02-11-2023 End: 02-11-[address] Luis Cortés Work Phone: [facility]-Laboratory, [facility] Start: 02-11-2023 End: 02-11-[address] Luis Cortés Work Phone: [facility] Internal Medicine Work Phone: Start: 12-24-[address] Luis Cortés Work Phone: [facility] Oncology Start: 12-24-2022 End: 12-24-[address] Luis Cortés Work Phone: [facility] Work Phone: Start: 11-02-2022 End: 11-02-[address] Luis Cortés Work Phone: [facility] Internal Medicine Work Phone: Start: 10-09-2022 Non-patient / Non-visit Dr. Luis Cortés Work Phone: [facility] Start: 10-09-2022 End: 10-12-[address] Luis Cortés Work Phone: [facility] Work Phone: Start: 10-09-2022 End: 10-12-[address] [facility] Start: 10-01-2022 End: 10-01-[address] Luis Cortés [facility] Start: 09-25-2022 Non-patient / Non-visit Dr. Luis Cortés Work Phone: [facility] Start: 09-24-[address] Luis Cortés Work Phone: [facility] Oncology Start: 09-24-2022 End: 09-24-[address] Luis Cortés Work Phone: [facility] Cancer Care Start: 09-18-2022 End: 09-18-[address] Luis Cortés Work Phone: [facility] Work Phone: Start: 09-18-2022 End: 09-18-[address] Luis Cortés Work Phone: [facility] Start: 09-11-2022 Non-patient / Non-visit Dr. Luis Cortés Work Phone: [facility] Start: 09-04-2022 Non-patient / Non-visit Dr. Luis Cortés Work Phone: [facility] Start: 08-28-2022 Non-patient / Non-visit Dr. Luis Cortés Work Phone: [facility] Start: 08-21-2022 Non-patient / Non-visit Dr. Luis Cortés Work Phone: [facility] Start: 08-14-2022 Non-patient / Non-visit Dr. Luis Cortés Work Phone: [facility] Start: 08-14-2022 End: 08-18-[address] Luis Cortés Work Phone: [facility] Work Phone: Start: 08-14-2022 End: 08-18-[address] Luis Cortés Work Phone: [facility] Start: 08-05-2022 End: 08-05-[address] Luis Cortés Work Phone: [facility] Internal Medicine Start: 08-04-2022 End: 08-04-[address] Luis Cortés Work Phone: [facility] Heart Group Start: 07-28-2022 End: 07-28-[address] Luis Cortés Work Phone: [facility] Work Phone: Start: 07-28-2022 End: 07-28-[address] Luis Cortés Work Phone: [facility]-Laboratory, Specimen Start: 07-28-2022 End: 07-28-[address] Luis Cortés Work Phone: [facility] Start: 07-23-2022 End: 07-23-[address] Luis Cortés Work Phone: [facility] Start: 07-23-[address] Luis Cortés Work Phone: [facility] Oncology Start: 07-14-2022 End: 07-14-[address] Luis Cortés Work Phone: [facility] Start: 07-06-2022 End: 07-06-[address] Luis Cortés Work Phone: [facility] Internal Medicine Start: 06-05-2022 Non-patient / Non-visit Dr. Luis Cortés Work Phone: [facility] Start: 06-05-2022 End: 06-05-2022 Admission to same day surgery center Dr. Luis Cortés Work Phone: [facility]-Endoscopy Start: 06-05-2022 End: 06-05-[address] Luis Cortés Work Phone: [facility] Work Phone: Start: 06-01-2022 End: 06-01-[address] Luis Cortés Work Phone: [facility] Start: 05-11-[address] Luis Cortés Work Phone: [facility] Oncology Start: 05-11-2022 End: 05-11-[address] Luis Cortés Work Phone: [facility] Cancer Care Start: 05-08-2022 End: 05-08-[address] Luis Cortés Work Phone: [facility] Internal Medicine Start: 05-05-2022 Non-patient / Non-visit Dr. Luis Cortés Work Phone: [facility] Start: 05-04-2022 Non-patient / Non-visit Dr. Luis Cortés Work Phone: [facility] Start: 05-04-2022 End: 05-04-[address] Luis Cortés Work Phone: [facility] Work Phone: Start: 05-04-2022 End: 05-04-[address] Luis Cortés Work Phone: [facility] Start: 04-14-2022 End: 04-14-[address] Luis Cortés Work Phone: [facility] Start: 04-14-2022 End: 04-14-[address] Luis Cortés Work Phone: [facility] Vascular Surgery Start: 04-07-2022 End: 04-07-[address] Luis Cortés Work Phone: [facility] Internal Medicine Start: 04-07-[address] Luis Cortés Work Phone: [facility]Cardiovasla r Services Start: 04-01-2022 End: 04-01-[address] Luis Cortés Work Phone: [facility]-Pulmonary Medicine [facility] Start: 03-24-2022 Non-patient / Non-visit Dr. Luis Cortés Work Phone: [facility] Start: 03-20-2022 End: 03-20-[address] Luis Cortés Work Phone: [facility] Start: 03-17-2022 Non-patient / Non-visit Dr. Luis Cortés Work Phone: [facility] Start: 03-10-2022 Non-patient / Non-visit Dr. Luis Cortés Work Phone: [facility] Start: 02-24-2022 Non-patient / Non-visit Dr. Luis Cortés Work Phone: [facility] Start: 02-24-[address] Luis Cortés Work Phone: [facility] Start: 02-17-2022 End: 02-17-[address] Luis Cortés Work Phone: [facility] Work Phone: Start: 02-17-2022 End: 02-17-[address] Luis Cortés Work Phone: [facility]-Outpatient Bone Densitometry Start: 02-16-2022 Non-patient / Non-visit Dr. Luis Cortés Work Phone: [facility] Start: 02-16-2022 End: 02-18-[address] Luis Cortés Work Phone: [facility] Start: 01-30-[address] Luis Cortés Work Phone: [facility] Start: 01-30-2022 End: 01-30-2022 Encounter for general adult medical examination without abnormal findings Dr. Luis Cortés Work Phone: [facility] Internal Medicine Start: 01-30-2022 End: 01-30-[address] Luis Cortés Work Phone: [facility] Internal Medicine Start: 12-31-2021 End: 12-31-2021 Emergency department patient visit Dr. Luis Cortés Work Phone: [facility]-Emergency Department Start: 11-04-2021 Refill Liliam Corey 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 Work Phone: [facility] Physician [facility] Cardiology and Primary Care Comment on above: Essential (primary) hypertension Start: 10-29-2021 End: 10-29-[address] Luis Cortés Work Phone: [facility] Internal Medicine Start: 10-12-2021 Refill Liliam Corey 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 Work Phone: [facility] Physician [facility] Cardiology and Primary Care Comment on above: Essential (primary) hypertension Start: 10-06-2021 End: 10-06-[address] Lius Cortés Work Phone: [facility]-Pulmonary Medicine [facility] Start: 09-29-2021 Non-patient / Non-visit Dr. Luis Cortés Work Phone: [facility] Start: 09-29-2021 End: 09-29-[address] Luis Cortés Work Phone: [facility]-Pulmonary Services/Neurology Start: 09-24-2021 Non-patient / Non-visit Dr. Luis Cortés Work Phone: [facility] Start: 09-23-2021 End: 09-23-[address] Luis Cortés [facility] Start: 09-02-2021 End: 09-02-[address] Luis Cortés [facility] Start: 08-05-2021 Refill Liliam Corey CNP Work Phone: [facility] Physician [facility] Cardiology and Primary Care Start: 07-22-2021 End: 07-22-[address] Luis Cortés Work Phone: [facility]-Laboratory, [facility] Start: 07-22-2021 End: 07-22-[address] Luis Cortés Work Phone: [facility] Internal Medicine Start: 06-24-2021 Refill Paul Hurley MD Work Phone: [facility] Physician [facility] Cardiology and Primary Care Comment on above: Essential (primary) hypertension Start: 06-20-2021 Refill Paul Hurley MD Work Phone: [facility] Physician [facility] Cardiology and Primary Care Comment on above: Hypercholesteremia Start: 06-16-[address] Luis oCrtés Work Phone: [facility]-Pulmonary Services/Neurology Start: 06-09-2021 End: 06-09-[address] Luis Cortés Work Phone: [facility] Heart [facility] Start: 04-30-2021 Refill Paul Hurley MD Work Phone: [facility] Physician [facility] Cardiology and Primary Care Comment on above: Essential (primary) hypertension Start: 01-10-2021 End: 01-10-2021 ambulatory PAUL HURLEY [facility] Ambulatory Start: 01-02-2021 End: 01-02-2021 ambulatory Sabina Milligan [facility] Physician Group Cardiology and Primary Care Comment on above: 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 Start: 11-12-2020 End: 11-12-2020 Refill Liliam Corey CNP Work Phone: [facility] Physician [facility] Cardiology and Primary Care Comment on above: Chronic obstructive pulmonary disease, u nspecified COPD type (HCC); Mild intermittent asthma without complication Start: 11-02-2020 End: 11-02-2020 Refill Paul Hurley MD Work Phone: [facility] Physician [facility] Cardiology and Primary Care Start: 10-29-2020 End: 10-29-2020 Orders Only Jodie Ruvalcaba LPN [facility] Physician s Group Gastroenterology Comment on above: Sars-associated coronavirus as the cause of diseases classified elsewhere (Primary Dx) Encounter for screen ing colonoscopy for [id number] patient (Primary Dx) Start: 10-26-2020 End: 10-26-2020 ambulatory [facility] Start: 10-15-2020 End: 10-15-2020 ambulatory LILIAM COREY [facility] Ambulato ry Start: 10-15-2020 End: 10-15-2020 Office outpatient visit 15 minutes Liliam Corey CNP Work Phone: [facility] Physician [facility] Cardiology and Primary Care Comment on above: Chronic obstructive pulmonary disease, u nspecified COPD type (HCC) (Primary Dx); Mild intermittent asthma without complication Start: 10-04-2020 End: 10-04-2020 Orders Only Jodie Ruvalcaba [facility] Physician s Group Gastroenterology Comment on above: Sars-associated coronavirus as the cause of diseases classified elsewhere (Primary Dx) Start: 10-03-2020 End: 10-03-2020 Admission to day surgery [facility] Work Phone: [facility] Physicians Group Gastroenterology Comment on above: Encounter for screening colonoscopy for [id number] patient (Primary Dx) Start: 10-03-2020 End: 10-03-2020 [facility] Amb[facility] Start: 10-03-2020 End: 10-03-2020 Office outpatient new 30 minutes Paul Hurley Work Phone: [facility] Physicians [facility] Gastroenterology Comment on above: Encounter for screening colonoscopy Start: 09-13-2020 End: 09-13-2020 Orders Only Paul Hurley Work Phone: [facility] Physician Group Cardiology and Primary Care Comment on above: Hypertriglyceridemia (Primary Dx); Hypercholesteremia Start: 09-12-2020 End: 09-16-2020 ambulatory [facility] Start: 09-09-2020 End: 09-09-2020 ambulatory PAUL SMITH [facility] Start: 09-09-2020 End: 09-09-2020 Office outpatient visit 40 minutes Paul Hurley Work Phone: [facility] Physician [facility] Cardiology and Primary Care Comment on above: Essential (primary) hypertension; Chronic idiopathic constipation; Type 2 diabetes mellitus with diabetic polyneuropathy, without long-term current use of insulin ([facility]); HTN (hypertension), benign; Chronic obstructive pulmonary disease, unspecified COPD type ([facility]); Chronic diastolic congestive heart failure ([facility]); Class 3 severe obesity due to excess calories with serious comorbidity and body mass index (BMI) of 50.0 to 59.9 in adult ([facility]); Well adult health check; Encounter for screening colonoscopy; Hypercholesteremia; Hypothyroidism, unspecified type; Urge incontinence of urine; At high risk for falls Start: 08-16-2020 End: 08-16-2020 Refill Paul Hurley Work Phone: [facility] Physician Group Cardiology and Primary Care Start: 08-08-2020 End: 08-08-2020 Orders Only Faby Granados Work Phone: [facility] Physician Group [facility] Start: 07-16-2020 End: 07-16-2020 Refill Emmy Luke [facility] Physician Group Cardiology and Primary Care Start: 05-24-2020 Patient encounter status Liliam Corey KALLI Work Phone: [facility] Start: 05-24-2020 End: 05-24-2020 [facility] Ambulatory Start: 05-24-2020 End: 05-24-2020 Periodic preventive med est patient 65yrs& older Sonubeverleycody Hurley Work Phone: [facility] Physician Group Cardiology and Primary Care Comment on above: HTN (hypertension), benign (Primary Dx); Hypercholesteremia; Chronic diastolic congestive heart failure (HCC); Age-related osteoporosis without current pathological fracture; Type 2 diabetes mellitus with diabetic polyneuropathy, without long-term current use of insulin (HCC); Well adult health check; Encounter for screening colonoscopy; Flu vaccine need; Class 3 severe obesity due to excess calories with serious comorbidity and body mass index (BMI) of 50.0 to 59.9 in adult (HCC) Start: 05-02-2020 End: 05-03-2020 ambulatory [facility] Start: 05-02-2020 End: 05-02-2020 Subsequent hospital visit by physician [facility]ossein [facility]ley Work Phone: [facility] Mammography Comment on above: Well adult health check Start: 02-16-2020 End: 02-16-2020 ambulatory [facility]UC[facility] Start: 02-16-2020 End: 02-16-2020 Patient encounter procedure Paul Hurley Work Phone: [facility] Physician Group Cardiology and Primary Care Comment on above: Well adult health check (Primary Dx); Chronic obstructive pulmonary disease, unspecified COPD type (HCC); HTN (hypertension), benign; Hypercholesteremia; Type 2 diabetes mellitus without complication, without long-term current use of insulin (HCC); Morbid obesity (HCC); Encounter for screening colonoscopy Start: 01-28-2020 End: 01-28-2020 Emergency department patient visit DURGA IRWIN [facility] Start: 01-28-2020 End: 01-28-2020 Emergency department patient visit Durga Irwin Work Phone: [facility] Emergency Department Comment on above: Acute pain of left knee (Primary Dx); Primary osteoarthritis of left knee; Chronic cellulitis Start: 06-30-2019 End: 06-30-2019 Office outpatient visit 15 minutes [employer] Work Phone: [facility] Comment on above: Venous insufficiency (chronic) (peripher al) (Primary Dx); Venous stasis dermatitis of both lower extremities; Cellulitis of lower extremity, unspecified laterality; Candidiasis, skin or nails Start: 06-23-2019 End: 06-23-2019 Office outpatient visit 15 minutes [employer] Work Phone: [facility] Comment on above: Venous insufficiency (chronic) (peripher al) (Primary Dx); Venous stasis dermatitis of both lower extremities; Cellulitis of lower extremity, unspecified laterality; Candidiasis, skin or nails Start: 06-19-2019 End: 06-19-2019 Office outpatient visit 25 minutes [employer] Work Phone: [facility] Comment on above: Venous insufficiency (chronic) (peripher al) (Primary Dx); Venous stasis dermatitis of both lower extremities; Cellulitis of lower extremity, unspecified laterality Start: 06-02-2019 End: 06-09-2019 Evaluation and management of inpatient Abilio Padmaja Bowersjeramy Work Phone: [facility] Med Surg Comment on above: Cellulitis of right lower extremity; Cellulitis and abscess of left lower extremity; Candidiasis of skin Start: 04-25-2019 End: 04-25-2019 Refill Marjorie Narayanan Work Phone: [facility] Start: 02-16-2019 End: 02-16-2019 Office outpatient visit 25 minutes Marjorie Narayanan Work Phone: [facility] Physical Medicine & Rehabilitation Comment on above: Lumbar facet joint pain (Primary Dx); Osteoarthritis of facet joint of lumbar spine; Central spinal stenosis Start: 01-30-2019 End: 01-30-2019 Subsequent hospital visit by physician Marjorie Narayanan Work Phone: [facility] Comment on above: Arrived Start: 01-13-2019 End: 01-13-2019 Office outpatient visit 25 minutes Marjorie Gerald Yovannytheo Work Phone: [facility] Comment on above: Lumbar facet joint pain (Primary Dx); Osteoarthritis of facet joint of lumbar spine; DDD (degenerative disc disease), lumbosacral; Chronic low back pain, unspecified back pain laterality, with sciatica presence unspecified Start: 12-09-2018 End: 12-09-2018 Patient encounter procedure Marjorie Gerald Oracio Work Phone: [facility] [place] Comment on above: Lumbosacral radiculopathy (Primary Dx); Sacroiliac joint pain; Trochanteric bursitis of left hip; Pain of left hip joint Start: 12-07-2018 End: 12-07-2018 Patient encounter procedure Marjorie Gerald Oracio Work Phone: [facility] [place] Comment on above: Lumbosacral radiculopathy (Primary Dx); Sacroiliac joint pain; Trochanteric bursitis of left hip; Pain of left hip joint Start: 12-05-2018 End: 12-05-2018 Patient encounter procedure Marjorie Gerald Narayanan Work Phone: [facility] [place] Comment on above: Lumbosacral radiculopathy (Primary Dx); Sacroiliac joint pain; Trochanteric bursitis of left hip; Pain of left hip joint Start: 12-01-2018 End: 12-01-2018 Patient encounter procedure Marjorie Gerald Narayanan Work Phone: [facility] [place] Comment on above: Lumbosacral radiculopathy (Primary Dx) Start: 11-30-2018 End: 11-30-2018 Patient encounter procedure Marjorie Gerald Oracio Work Phone: [facility] [place] Comment on above: Lumbosacral radiculopathy (Primary Dx); Sacroiliac joint pain Start: 11-25-2018 End: 11-25-2018 Patient encounter procedure Marjorie Narayanan Work Phone: [facility] [place] Comment on above: Lumbosacral radiculopathy (Primary Dx) Start: 11-22-2018 End: 11-22-2018 Office outpatient visit 25 minutes Marjorie Narayanan Work Phone: [facility] Comment on above: Lumbar facet joint pain (Primary Dx); Discogenic low back pain; DDD (degenerative disc disease), lumbosacral; Osteoarthritis of facet joint of lumbar spine; Class 3 severe obesity with body mass index (BMI) of 50.0 to 59.9 in adult, unspecified obesity type, unspecified whether serious comorbidity present Start: 11-21-2018 End: 11-21-2018 Patient encounter procedure Marjorie Narayanan Work Phone: [facility] [place] Comment on above: Lumbosacral radiculopathy (Primary Dx) Start: 11-16-2018 End: 11-16-2018 Patient encounter procedure Marjorie Narayanan [facility] Phone: [facility] [place] Comment on above: Lumbosacral radiculopathy (Primary Dx) Start: 11-15-2018 End: 11-15-2018 Patient encounter procedure Marjorie Narayanan [facility] Phone[facility] [place] Comment on above: Lumbosacral radiculopathy (Primary Dx) Start: 11-11-2018 End: 11-11-2018 Patient encounter procedure Marjorie Narayanan Work Phone: [facility] [place] Comment on above: Lumbosacral radiculopathy (Primary Dx) Start: 11-04-2018 Patient encounter procedure MARJORIE NARAYANAN [facility] Start: 11-04-2018 End: 11-04-2018 Patient encounter procedure Marjorie Narayanan Work Phone: [facility] [place] Comment on above: Lumbosacral radiculopathy (Primary Dx) Start: 11-03-2018 Patient encounter procedure MARJORIE NARAYANAN [facility] Start: 11-03-2018 End: 11-03-2018 Patient encounter procedure Marjorie Narayanan Work Phone: [facility] [place] Comment on above: Lumbosacral radiculopathy (Primary Dx); Sacroiliac joint pain Start: 11-01-2018 Patient encounter procedure MARJORIE NARAYANAN [facility] Start: 11-01-2018 End: 11-01-2018 Patient encounter procedure Marjorie Narayanan Work Phone: [facility] [place] Comment on above: Lumbosacral radiculopathy (Primary Dx) Start: 10-28-2018 Patient encounter procedure MARJORIE NARAYANAN [facility] Start: 10-28-2018 End: 10-28-2018 Patient encounter procedure Marjorie Narayanan Work Phone: [facility] [place] Comment on above: Lumbosacral radiculopathy (Primary Dx); Sacroiliac joint pain; Trochanteric bursitis of left hip; Pain of left hip joint Start: 10-26-2018 Patient encounter procedure MARJORIE NARAYANAN [facility] Start: 10-26-2018 End: 10-26-2018 Patient encounter procedure Marjorie Narayanan Work Phone: [facility] [place] Comment on above: Lumbosacral radiculopathy (Primary Dx); Sacroiliac joint pain; Trochanteric bursitis of left hip; Pain of left hip joint Start: 10-24-2018 Patient encounter procedure MARJORIE NARAYANAN [facility] Start: 10-24-2018 End: 10-24-2018 Patient encounter procedure Marjorie Narayanan Work Phone: [facility] [place] Comment on above: Lumbosacral radiculopathy (Primary Dx); Sacroiliac joint pain; Pain of left hip joint; Trochanteric bursitis of left hip Start: 10-20-2018 Patient encounter procedure MARJORIE NARAYANAN [facility] Start: 10-20-2018 End: 10-20-2018 Patient encounter procedure Marjorie Narayanan Work Phone: [facility] [place] Comment on above: Lumbosacral radiculopathy (Primary Dx) Start: 10-19-2018 [facility] Start: 10-19-2018 End: 10-19-2018 Patient encounter procedure Marjorie Narayanan Work Phone: [facility] [place] Comment on above: Lumbosacral radiculopathy (Primary Dx); Sacroiliac joint pain; Pain of left hip joint; Trochanteric bursitis of left hip Start: 10-18-2018 End: 10-18-2018 Office outpatient visit 25 minutes Marjorie Narayanan Work Phone: [facility] Comment on above: Lumbosacral radiculopathy (Primary Dx); Sacroiliac joint pain; Low back pain, unspecified back pain laterality, unspecified chronicity, with sciatica presence unspecified; Trochanteric bursitis of left hip Start: 10-13-2018 Patient encounter procedure MARJORIE NARAYANAN [facility] Start: 10-13-2018 End: 10-13-2018 Patient encounter procedure Marjorie Narayanan Work Phone: [facility] [place] Comment on above: Lumbosacral radiculopathy (Primary Dx); Sacroiliac joint pain; Pain of left hip joint; Trochanteric bursitis of left hip Start: 10-11-2018 Patient encounter procedure MARJORIE NARAYANAN [facility] Start: 10-11-2018 End: 10-11-2018 Patient encounter procedure Marjorie Narayanan Work Phone: [facility] [place] Comment on above: Lumbosacral radiculopathy (Primary Dx); Sacroiliac joint pain; Pain of left hip joint; Trochanteric bursitis of left hip Start: 10-07-2018 End: 10-07-2018 Office outpatient visit 25 minutes Marjorie Narayanan Work Phone: [facility] Comment on above: Sacroiliac joint pain (Primary Dx); Lumbosacral radiculopathy; DDD (degenerative disc disease), lumbosacral; Osteoarthritis of facet joint of lumbar spine Start: 10-06-2018 Patient encounter procedure CHETAN BLEDSOE [facility] Start: 10-05-2018 Patient encounter procedure CHETAN BLEDSOE [facility] Start: 10-05-2018 End: 10-05-2018 Patient encounter procedure [facility]lesdoe [facility] [place] Comment on above: Lumbosacral radiculopathy (Primary Dx); Sacroiliac joint pain; Pain of left hip joint; Trochanteric bursitis of left hip Start: 10-03-2018 Patient encounter procedure CHETAN BLEDSOE [facility] Start: 10-03-2018 End: 10-03-2018 Patient encounter procedure Chetan [facility]ledsoe [facility] [place] Comment on above: Lumbosacral radiculopathy (Primary Dx); Sacroiliac joint pain; Pain of left hip joint; Trochanteric bursitis of left hip Start: 09-27-2018 Patient encounter procedure CHETAN BLEDSOE [facility] Start: 09-27-2018 End: 09-27-2018 Patient encounter procedure [facility]tan [facility]ledsoe [facility] [place] Comment on above: Lumbosacral radiculopathy (Primary Dx); Sacroiliac joint pain; Pain of left hip joint; Trochanteric bursitis of left hip Start: 09-26-2018 Patient encounter procedure MARJORIE NARAYANAN [facility] Start: 09-26-2018 End: 09-26-2018 Patient encounter procedure Marjorie Narayanan [facility] [place] Comment on above: Lumbosacral radiculopathy (Primary Dx); Sacroiliac joint pain; Pain of left hip joint; Trochanteric bursitis of left hip Start: 09-16-2018 End: 09-16-2018 Subsequent hospital visit by physician Marjorie Narayanan Work Phone: [facility] Comment on above: Arrived Start: 09-16-2018 End: 09-16-2018 Office outpatient new 45 minutes Marjorie Narayanan Work Phone: [facility] Comment on above: Lumbosacral radiculopathy (Primary Dx); Sacroiliac joint pain; Pain of left hip joint; Trochanteric bursitis of left hip Start: 08-24-2018 End: 08-24-2018 Emergency department patient visit Sourav Bear Facility:[place] Start: 07-08-2018 End: 07-08-2018 Patient encounter procedure Marcelo Copeland Facility:[place] Start: 05-17-2018 Patient encounter procedure Marcelo Copeland Facility:[facility] Start: 05-17-2018 End: 05-17-2018 Patient encounter procedure Marcelo Copeland Work Phone: [facility] Start: 03-29-2018 End: 03-29-2018 Patient encounter procedure Marcelo Copeland Facility:[place] Start: 03-28-2018 Patient encounter procedure Marcelo Blankenshipbos Facility:[facility] Start: 12-30-2017 Patient encounter procedure Vijeth R Sringeri Facility:[facility] Start: 12-30-2017 End: 12-30-2017 Patient encounter Paul Tysoneri Work Phone: [facility] Start: 08-23-2017 End: 08-23-2017 Ambulatory Paul Coatesngeri Work Phone: [facility] Start: 02-18-2017 End: 02-18-2017 Ambulatory Paul Coatesngeri Work Phone: [facility] Start: 07-06-2016 End: 07-06-2016 Patient encounter procedure Tyler Joseph Work Phone: [facility] Start: 11-10-2010 End: 11-10-2010 Telephone encounter Ny Anderson Work Phone: [facility] [place] Comment on above: Medication Problem Procedures Date Procedure Procedure Detail Performing Clinician Start: 03-28-2025 D-dimer assay, quantitative Dr. Luz Marina Cortés MD Work Phone: Comment on above: D-Dimer ELEVATED (>0.49): Additional donovan dies and clinicalassessments are indicated to conclude diagnosis of:Deep Vein Thrombosis (DVT) or Pulmonary Embolism (PE)CRITICAL VALUE CALLED TO SHEY CASTRO03/28/25 [address]RESULTS READ BACK BY SAME . Start: 03-28-[address] Everett Cortés MD Work Phone: Start: 03-06-2025 MRI of brain with contrast Dr. Luis Cortés MD Work Phone: Start: 02-11-2025 Ct head/brain w/o contrast material John Jansen MD Work Phone: Start: 01-19-2025 Blood count smear mcrscp w/mnl difrntl wbc count Dr. Luis Cortés MD Work Phone: Start: 01-19-[address] Everett Cortés MD Work Phone: Start: 01-19-2025 Mean corpuscular hemoglobin concentration determination Dr. Luis Cortés MD Work Phone: Start: 01-19-2025 Nucleated red blood cell count procedure Dr. Luis Cortés MD Work Phone: Start: 01-19-2025 Platelet mean volume determination Dr. Luis Cortés MD Work Phone: Start: 01-12-2025 Blood count smear mcrscp w/mnl difrntl wbc count Dr. Luis Cortés MD Work Phone: Start: 01-12-2025 Mean corpuscular hemoglobin concentration determination Dr. Luis Cortés MD Work Phone: Start: 01-12-2025 Nucleated red blood cell count procedure Dr. Luis Cortés MD Work Phone: Start: 01-12-2025 Platelet mean volume determination Dr. Luis Cortés MD Work Phone: Start: 01-12-2025 Vitamin D, 25-hydroxy measurement Dr. Mignon Cortés MD Work Phone: Comment on above: Vitamin D StatusDeficiency: <20 ng/mL (5 0nmol/L)Insufficiency: 20-30 ng/mL (50-75 nmol/L)Sufficiency: 30-100 ng/mL (75-250 nmol/L)Toxicity: >100 ng/mL (>250 nmol/L) Start: 12-29-[address] Luz Marina Cortés MD Work Phone: Start: 12-29-[address] Luis gomez MD Work Phone: Start: 12-29-2024 End: 12-29-2024 Microbial culture, routine Dr. Luis Cortés MD Work Phone: Start: 11-27-2024 Urine microscopy: red cells Dr. Luz Marina Cortés MD Work Phone: Start: 11-27-2024 Urnls dip stick/tablet reagent auto microscopy Dr. Luis Cortés MD Work Phone: Start: 11-27-2024 X-ray of chest, PA and lateral views Dr. Luis Cortés MD Work Phone: Start: 11-27-2024 Blood count smear mcrscp w/mnl difrntl wbc count Dr. Luis Cortés MD Work Phone: Start: 11-27-2024 Mean corpuscular hemoglobin concentration determination Dr. Luis Cortés MD Work Phone: Start: 11-27-2024 Nucleated red blood cell count procedure Dr. Luis Cortés MD Work Phone: Start: 11-27-2024 Platelet mean volume determination Dr. Luis Cortés MD Work Phone: Start: 11-20-2024 Blood count smear mcrscp w/mnl difrntl wbc count Dr. Luis Cortés MD Work Phone: Start: 11-20-2024 Mean corpuscular hemoglobin concentration determination Dr. Luis Cortés MD Work Phone: Start: 11-20-2024 Nucleated red blood cell count procedure Dr. Luis Cortés MD Work Phone: Start: 11-20-2024 Platelet mean volume determination Dr. Luis Cortés MD Work Phone: Start: 11-16-2024 Blood count smear mcrscp w/mnl difrntl wbc count Dr. Luis Cortés MD Work Phone: Start: 11-16-[address] Everett Cortés MD Work Phone: Start: 11-16-2024 Mean corpuscular hemoglobin concentration determination Dr. Luis Cortés MD Work Phone: Start: 11-16-2024 Nucleated red blood cell count procedure Dr. Luis Cortés MD Work Phone: Start: 11-16-2024 Platelet mean volume determination Dr. Luis Cortés MD Work Phone: Start: 11-10-2024 X-ray of ankle, three or more views Dr. Luis Cortés MD Work Phone: Start: 11-10-2024 Plain X-ray of tibia and fibula Dr. Micki Cortés MD Work Phone: Start: 11-03-[address] Luz Marina Cortés MD Work Phone: Start: 11-03-[address] Luis gomez MD Work Phone: Start: 11-03-2024 End: 11-03-2024 Microbial culture, routine Dr. Luis Cortés MD Work Phone: Start: 10-16-2024 Blood count smear mcrscp w/mnl difrntl wbc count Dr. Luis Cortés MD Work Phone: Start: 10-16-2024 Mean corpuscular hemoglobin concentration determination Dr. Luis Cortés MD Work Phone: Start: 10-16-2024 Nucleated red blood cell count procedure Dr. Luis Cortés MD Work Phone: Start: 10-16-2024 Platelet mean volume determination Dr. Luis Cortés MD Work Phone: Start: 10-16-2024 Total cholesterol:HDL ratio measurement Dr. Luis Cortés MD Work Phone: Start: 09-22-2024 Cardiovascular stress test using pharmacologic stress agent Dr. Luis Cortés MD Work Phone: Start: 09-01-[address] Luz Marina Cortés MD Work Phone: Start: 09-01-[address] Luis gomez MD Work Phone: Start: 09-01-2024 End: 09-01-2024 Microbial culture, routine Dr. Luis Cortés MD Work Phone: Start: 08-28-2024 Blood count smear mcrscp w/mnl difrntl wbc count Dr. Luis Cortés MD Work Phone: Start: 08-28-2024 Mean corpuscular hemoglobin concentration determination Dr. Luis Cortés MD Work Phone: Start: 08-28-2024 Nucleated red blood cell count procedure Dr. Luis Cortés MD Work Phone: Start: 08-28-2024 Platelet mean volume determination Dr. Luis Cortés MD Work Phone: Start: 08-28-2024 Evaluation of diagnostic study results Dr. Luis Cortés MD Work Phone: Start: 08-04-[address] Luz Marina Cortés MD Work Phone: Start: 08-04-[address] Luis gomez MD Work Phone: Start: 08-04-2024 End: 08-04-2024 Microbial culture, routine Dr. Luis Cortés MD Work Phone: Start: 06-09-[address] Luz Marina Cortés MD Work Phone: Start: 06-09-[address] Luis gomez MD Work Phone: Start: 06-09-2024 Microbial culture, routine Dr. Luis Cortés MD Work Phone: Start: 05-05-[address] Luz Marina Cortés MD Work Phone: Start: 05-05-[address] Luis gomez MD Work Phone: Start: 05-05-2024 Microbial culture, routine Dr. Luis Cortés MD Work Phone: Start: 04-06-2024 Measurement of renal function Dr. Harshil Cortés MD Work Phone: Comment on above: GFR Calc Start: 09-24-2023 CT angiography of chest with contrast Dr. Luis Cortés Work Phone: Start: 09-24-2023 Plain chest X-ray Dr. Luis Cortés Work Phone: Start: 09-10-2023 X-ray of both feet Dr. Luis Cortés Work Phone: Start: 06-20-2023 Plain chest X-ray Dr. Luis Cortés Work Phone: Start: 06-20-2023 Bacteria identified in Blood by Culture Dr. Luis Cortés Work Phone: Start: 03-25-2023 Radiologic examination of knee Dr. Everett Cortés Work Phone: Start: 06-05-[address] Luis Cortés Work Phone: Start: 05-04-2022 Plain chest X-ray Dr. Luis Cortés Work Phone: Start: 02-17-2022 Dual energy X-ray absorptiometry Dr. Javier Cortés Work Phone: Start: 02-17-[address] Luis gomez Work Phone: Start: 09-12-2020 Microalbumin [Mass/volume] in Urine by Test strip Paul Hurley Start: 09-09-2020 Adult depression screening assessment Paul Hurley Start: 09-02-2020 3 comp foot exam completed Paul puente Start: 05-02-2020 MG Breast - bilateral screening Paul Hurley Work Phone: Start: 05-02-2020 Mammography Paul Hurley Start: 01-28-2020 End: 01-28-2020 Glucose [Mass/volume] in Blood Durga Irwin Work Phone: Start: 01-28-2020 X-ray of left knee Durga Irwin Work Phone: Start: 01-28-2020 Blood count complete auto&auto difrntl wbc Durga Irwin Work Phone: Start: 06-23-2019 Strapping unna boot Prity Kit Work Phone: Start: 06-19-2019 Strapping unna boot Prity Kit Work Phone: Start: 06-09-2019 Glucose [Mass/volume] in Blood Abilio Sanders Work Phone: Start: 06-08-2019 Glucose [Mass/volume] in Blood Pradyumna Knight Padival Work Phone: Start: 06-08-2019 Glucose [Mass/volume] in Blood Pradyumna Knight Padival Work Phone: Start: 06-08-2019 Glucose [Mass/volume] in Blood Pradyumna Knight Padival Work Phone: Start: 06-08-2019 Ct upper extremity w/o contrast material Andrew Elaine Work Phone: Start: 06-08-2019 Glucose [Mass/volume] in Blood Pradyumna Knight Padival Work Phone: Start: 06-07-2019 Glucose [Mass/volume] in Blood Pradyumna Knight Padival Work Phone: Start: 06-07-2019 Glucose [Mass/volume] in Blood Pradyumna Knight Padival Work Phone: Start: 06-07-2019 Glucose [Mass/volume] in Blood Pradyumna Knight Padival Work Phone: Start: 06-07-2019 Standard chest X-ray Paul Hurley Work Phone: Start: 06-07-2019 Glucose [Mass/volume] in Blood Pravignesha Knight Padival Work Phone: Start: 06-07-2019 Basic metabolic 2000 panel - Serum or Plasma Anne-Marieth Miahiah Aminatangeri Work Phone: Start: 06-07-2019 Complete blood count with white cell differential, automated Sonujeth Rattiffanyiah Sringeri Work Phone: Start: 06-07-2019 Complete blood count with white cell differential, manual Vijeth Ratgracejaiah Aminatangeri Work Phone: Start: 06-07-2019 Hepatic function 2000 panel - Serum or Plasma Anne-Marieth Miahiah Aminatangeri Work Phone: Start: 06-07-2019 Magnesium [Mass/volume] in Serum or Plasma Paul Hurley Work Phone: Start: 06-06-2019 Glucose [Mass/volume] in Blood Abilio Sanders Work Phone: Start: 06-06-2019 End: 06-06-2019 Radex shoulder complete minimum 2 views Abilio Sanders Work Phone: Start: 06-06-2019 Glucose [Mass/volume] in Blood Enida Padmaja Bowersival Work Phone: Start: 06-06-2019 Glucose [Mass/volume] in Blood Abilio Sanders Work Phone: Start: 06-06-2019 Glucose [Mass/volume] in Blood Enida Padmaja Bowersival Work Phone: Start: 06-06-2019 Bilirubin.direct [Mass/volume] in Serum or Plasma Paul Hurley Work Phone: Start: 06-06-2019 Complete blood count with white cell differential, automated Paul Hurley Work Phone: Start: 06-06-2019 Complete blood count with white cell differential, manual Paul Hurley Work Phone: Start: 06-06-2019 Comprehensive metabolic 2000 panel - Serum or Plasma Kelseafredy Pantoja Work Phone: Start: 06-06-2019 Magnesium [Mass/volume] in Serum or Plasma Paul Hurley Work Phone: Start: 06-05-2019 Glucose [Mass/volume] in Blood Abilio Sanders Work Phone: Start: 06-05-2019 Glucose [Mass/volume] in Blood Enida Padmaja Padival Work Phone: Start: 06-05-2019 Glucose [Mass/volume] in Blood Pradyaureaa Knight Padival Work Phone: Start: 06-05-2019 Dup-scan xtr veins complete bilateral study Marilyn Pantoja Work Phone: Start: 06-05-2019 Non-invas physiologic std extremity art 2 level Marilyn Pantoja Work Phone: Start: 06-05-2019 Glucose [Mass/volume] in Blood Abilio Sanders Work Phone: Start: 06-05-2019 Basic metabolic 2000 panel - Serum or Plasma Paul Hurley Work Phone: Start: 06-05-2019 Magnesium [Mass/volume] in Serum or Plasma Paul Hurley Work Phone: Start: 06-05-2019 Glucose [Mass/volume] in Blood Abilio Sanders Work Phone: Start: 06-04-2019 Glucose [Mass/volume] in Blood Abilio Sanders Work Phone: Start: 06-04-2019 Glucose [Mass/volume] in Blood Abilio Sanders Work Phone: Start: 06-04-2019 Glucose [Mass/volume] in Blood Abilio Sanders Work Phone: Start: 06-04-2019 Glucose [Mass/volume] in Blood Enida Padmaja Sanders Work Phone: Start: 06-03-2019 Glucose [Mass/volume] in Blood Pravignesha Padmaja Sanders Work Phone: Start: 06-03-2019 Glucose [Mass/volume] in Blood Enida Padmaja Sanders Work Phone: Start: 06-03-2019 Glucose [Mass/volume] in Blood Pravignesha Padmaja Sanders Work Phone: Start: 06-03-2019 Glucose [Mass/volume] in Blood Pravignesha Padmaja Sanders Work Phone: Start: 06-02-2019 Glucose [Mass/volume] in Blood Abilio Sanders Work Phone: Start: 06-02-2019 Complete blood count with white cell differential, automated Abilio Sanders Work Phone: Start: 06-02-2019 Complete blood count with white cell differential, manual Abilio Sanders Work Phone: Start: 06-02-2019 Comprehensive metabolic 2000 panel - Serum or Plasma Abilio Sanders Work Phone: Start: 06-02-2019 Glucose [Mass/volume] in Blood Abilio Sanders Work Phone: Start: 01-30-2019 MRI of lumbar spine Marjorie Narayanan Work Phone: Start: 09-16-2018 Diagnostic radiography of lumbar spine Marjorie Narayanan Work Phone: Start: 09-16-2018 Skeletal X-ray of pelvis and hip Marjorie Narayanan Work Phone: Start: 01-16-2008 Mammography [place] Work Phone: Start: 11-23-2005 Colonoscopy Ny [place] Work Phone: Anaerobic microbial culture Dr. Luis Cortés Work Phone: Investigation of tra nsfusion reaction Dr. Luis Cortés Work Phone: Laboratory test result abnormal Abnormal laboratory test Dr. Luis Cortés Work Phone: Comment on above: D-dimer 0.90 today. Doppler and CTA were negative. May be related to chronic Leg ulcer. D-dimer 1.49 today. Doppler is negative. May be related to chronic Leg ulcer. Laboratory test result abnormal Abnormal laboratory test Dr. Jon Rubio MD Microbial culture, routine D r. Luis Cortés Work Phone: Plan of Treatment Date Care Activity Detail Author Start: 03-28-2025 [facility] Start: 02-19-2025 Influenza vaccination Influenza Vaccine (#1) [facility] Start: 02-07-2025 Vitamin D, 25-hydroxy measurement [facility] Start: 11-27-2024 [facility] Start: 11-27-2024 [facility] Start: 11-20-2024 Iv infusion therapy/prophylaxis /dx 1st to 1 hr [facility] Start: 11-18-2024 Following clinical pathway protocol [facility] Start: 11-18-2024 Peripherally inserted central catheter care [facility] Start: 11-15-2024 Iv infusion therapy/prophylaxis /dx 1st to 1 hr [facility] Start: 11-14-2024 Peripherally inserted central catheter care [facility] Start: 11-03-2024 Anaerobic microbial culture Anaerobic Culture [facility] Start: 11-03-2024 Source specific culture [facility] Start: 07-27-2024 Patient discharge [facility] Start: 02-20-2024 COVID-19 Vaccine ( season) COVID-19 Vaccine ( season) [facility] Start: 02-16-2024 RSV High Risk: (Elderly (60+) or Population) (1 - 1-dose 75+ series) RSV High Risk: (Elderly (60+) or Population) (1 - 1-dose 75+ series) [facility] Start: 09-24-2023 Troponin I measurement [facility] Start: 09-24-2023 End: 09-24-2023 [facility] Start: 09-24-2023 Hepatitis B surface antigen measurement [facility] Start: 09-24-2023 Hepatitis C antibody measurement [facility] Start: 09-24-2023 [facility] Start: 06-20-2023 End: 06-20-2023 Blood culture [facility] Start: 06-20-2023 Bacteria identified in Blood by Culture Blood Culture [facility] Start: 05-24-2023 Procedure [facility] Start: 09-12-2022 Screening for osteoporosis Bone Density Scan [facility] Start: 08-05-2022 Patient referral [facility] Work Phone: Start: 06-05-2022 Egd transoral biopsy single/multiple EGD BIOPSY SINGLE/MULTIPLE [facility] Start: 06-05-2022 Patient discharge [facility] Start: 05-08-2022 Patient referral [facility] Work Phone: Start: 04-07-2022 Patient referral [facility] Work Phone: Start: 03-13-2022 Pneumococcal vaccination Pneumococcal Vaccine (2 of 2 - PCV) [facility] Start: 02-19-2022 Influenza vaccination [facility] Start: 01-30-2022 Patient referral [facility] Work Phone: Start: 09-12-2021 Albumin DL <= 20 mg/L (U) [Mass/Vol] Urine Microalbumin [facility] Start: 09-12-2021 Diabetes mellitus screening Diabetes Screening [facility] Start: 09-12-2021 Microalbumin measurement, urine, quantitative Urine Microalbumin [facility] Start: 09-12-2021 Urine screening for protein Urine Microalbumin [facility] Start: 09-09-2021 Adolescent depression screening assessment Depression Screening (PHQ9) [facility] Start: 09-09-2021 Depression screening using PHQ-9 (Patient Health Questionnaire 9) score [facility] Start: 09-09-2021 Fall risk assessment Falls Risk Assessment [facility] Start: 09-02-2021 Diabetic foot examination Foot Exam [facility] Start: 07-22-2021 Patient referral [facility] Work Phone: Start: 05-24-2021 History and physical examination, annual for health maintenance Wellness Visit [facility] Start: 05-02-2021 Screening for malignant neoplasm of breast Mammogram [facility] Start: 05-02-2021 Screening mammography Mammogram [facility] Start: 03-15-2021 HbA1c (Bld) [Mass fraction] A1C [facility] Start: 03-15-2021 Hemoglobin A1c measurement A1C [facility] Start: 02-19-2021 Influenza vaccination [facility] Start: 2021 History and physical examination, annual for health maintenance Wellness Visit [facility] Start: 01-10-2021 End: 01-10-2021 Patient encounter procedure 01/10/2021 Office Visit Primary Care Paul Hurley MD [address] [place] [address] [phone] [facility] Start: 12-16-2020 End: 12-16-2020 Office Visit 12/16/2020 Office Visit Primary Care Paul Hurley MD [address] [place] [address] [phone] [facility] Start: 12-04-2020 End: 12-04-2020 Admission to same day surgery center 12/04/2020 Surgery Zeferino Alicia MD [address] [place] [address] [phone] COLONOSCOPY [facility] Comment on above: COLONOSCOPY Start: 12-04-2020 Subsequent hospital visit by physician 12/04/2020 Hospital Encounter Zeferino Alicia MD [address] [place] [address] [phone] [facility] Start: 11-30-2020 End: 10-29-2021 Covid-19/Influenza Order Algorithm Covid-19/Influenza Order Algorithm Microbiology Routine Sars-associated coronavirus as the cause of diseases classified elsewhere Expected: 11/30/2020, Expires: 10/29/2021 [facility] Comment on above: Expected: 11/30/2020, Expires: Start: 11-27-2020 End: 11-27-2020 Patient encounter procedure 11/27/2020 Office Visit Lab Zeferino Alicia MD [address] [place] [address] [phone] [facility] Start: 11-19-2020 End: 11-19-2020 Patient encounter procedure 11/19/2020 Office Visit Primary Care Lliiam Corey 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 [address] [place] [address] [phone] [facility] Start: 11-12-2020 End: 11-12-2020 Patient encounter procedure 11/12/2020 Office Visit Primary Care Liliam Corey 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 [address] [place] [address] [phone] [facility] Start: 10-30-2020 End: 10-30-2020 Hospital Encounter [facility] Comment on above: COLONOSCOPY Start: 10-26-2020 End: 10-04-2021 Covid-19/Influenza Order Algorithm Covid-19/Influenza Order Algorithm Microbiology Routine Sars-associated coronavirus as the cause of diseases classified elsewhere Expected: 10/26/2020, Expires: 10/04/2021 [facility] Comment on above: Expected: 10/26/2020, Expires: Start: 10-26-2020 End: 10-26-2020 Office Visit 10/26/2020 Office Visit Lab Zeferino Alicia MD [address] [place] [address] [phone] [facility] Start: 10-03-2020 End: 10-03-2020 Office Visit 10/03/2020 Office Visit Gastroenterology Paul Hurley MD [address] [place] [address] [phone] Zeferino Alicia MD [address] [place] [address] [phone] [facility] Start: 09-12-2020 End: 09-12-2020 Appointment 09/12/2020 Appointment Radiology Paul Hurley MD [address] [place] [address] [phone] [facility] Start: 09-09-2020 End: 09-09-2020 Office Visit 09/09/2020 Office Visit Primary Care Paul Hurley MD [address] [place] [address] [phone] [facility] Start: 06-24-2020 End: 07-25-2021 Echocardiography Echocardiogram complete Echocardiography Routine Chronic diastolic congestive heart failure (HCC) Expected: 06/24/2020 (Approximate), Expires: 07/25/2021 [facility] Comment on above: Expected: 06/24/2020 (Approximate), Expi res: 07/25/2021 Start: 05-25-2020 Adolescent depression screening assessment Depression Screening (PHQ9) [facility] Comment on above: Postponed from 1961 (Patient Refus ed) Start: 05-24-2020 End: 05-24-2020 Office Visit [facility] Start: 05-18-2020 End: 2021 Complete blood count with white cell differential, manual CBC and Differential Lab Routine Well adult health check Expected: 05/18/2020 (Approximate), Expires: 2021 [facility] Comment on above: Expected: 05/18/2020 (Approximate), Expi res: 2021 Start: 05-18-2020 End: 2021 Comprehensive metabolic 2000 panel Comprehensive Metabolic Panel Lab Routine HTN (hypertension), benign Expected: 05/18/2020 (Approximate), Expires: 2021 [facility] Comment on above: Expected: 05/18/2020 (Approximate), Expi res: 2021 Start: 05-18-2020 End: 2021 Lipid 1996 panel Lipid Panel Lab Routine Hypercholesteremia Expected: 05/18/2020 (Approximate), Expires: 2021 [facility] Comment on above: Expected: 05/18/2020 (Approximate), Expi res: 2021 Start: 05-18-2020 End: 2021 Magnesium [Mass/Vol] Magnesium Level Lab Routine HTN (hypertension), benign Expected: 05/18/2020 (Approximate), Expires: 2021 [facility] Comment on above: Expected: 05/18/2020 (Approximate), Expi res: 2021 Start: 02-23-2020 End: 04-17-2021 MG Breast - bilateral screening Mammography Screening Bilateral Imaging Routine Well adult health check Expected: 02/23/2020 (Approximate), Expires: 04/17/2021 [facility] Comment on above: Expected: 02/23/2020 (Approximate), Expi res: 04/17/2021 Start: 02-20-2020 Influenza vaccination given Sequential Influenza Vaccine (#1) [facility] Start: 02-16-2020 End: 02-16-2020 Office Visit 02/16/2020 Office Visit Primary Care Paul Hurley MD [address] [place] [address] [phone] [facility] Start: 06-30-2019 End: 06-30-2019 Office Visit 06/30/2019 Office Visit Wound Care Marilyn Pantoja MD [address] [facility] [address] [place] [address] [phone] [facility] Start: 06-23-2019 End: 06-23-2019 Office Visit 06/23/2019 Office Visit Wound Care Marilyn Pantoja MD [address] [facility] [address] [place] [address] [phone] [facility] Start: 06-19-2019 End: 06-19-2019 Office Visit [facility] Start: 02-19-2019 Influenza vaccination [facility] Start: 02-16-2019 End: 02-16-2019 Office Visit 02/16/2019 Office Visit Physical Medicine & Rehabilitation Marjorie Narayanan DO [address] [place] [address] [phone] [facility] Start: 01-13-2019 End: 01-14-2020 MRI of lumbar spine MRI SPINE LUMBAR WITHOUT CONTRAST Imaging Routine Lumbar facet joint pain Osteoarthritis of facet joint of lumbar spine DDD (degenerative disc disease), lumbosacral Chronic low back pain, unspecified back pain laterality, with sciatica presence unspecified Expected: 01/13/2019, Expires: 01/14/2020 [facility] Comment on above: Expected: 01/13/2019, Expires: 0 Start: 01-03-2019 End: 01-03-2019 Office Visit 01/03/2019 Office Visit Physical Medicine & Rehabilitation Marjorie Narayanan DO [address] [place] [address] [phone] [facility] Start: 12-09-2018 End: 12-09-2018 Rehab Services Visit 12/09/2018 Rehab Services Visit Physical Therapy Marjorie Narayanan, DO [address] [place] [address] Camila Olson, PT [address] [place] [address] [facility] Start: 12-07-2018 End: 12-07-2018 Rehab Services Visit 12/07/2018 Rehab Services Visit Physical Therapy Marjorie Narayanan, DO [address] [place] [address] Camila Olson, PT [address] [place] [address] [facility] [place] Start: 12-05-2018 End: 12-05-2018 Rehab Services Visit 12/05/2018 Rehab Services Visit Physical Therapy Marjorie Narayanan, DO [address] [place] [address] Pradeep Ibanez [facility] Start: 12-01-2018 End: 12-01-2018 Rehab Services Visit 12/01/2018 Rehab Services Visit Physical Therapy Marjorie Narayanan, DO [address] [place] [address] Noe Hdz, STORAGE ADMINISTRATOR [address] [place] [address] [facility] [place] Start: 11-30-2018 End: 11-30-2018 Rehab Services Visit 11/30/2018 Rehab Services Visit Physical Therapy Marjorie Narayanan, DO [address] [place] [address] [phone] Marija Coulter [facility] Physical Therapy [place] Start: 11-25-2018 End: 11-25-2018 Rehab Services Visit 11/25/2018 Rehab Services Visit Physical Therapy Marjorie Narayanan, DO [address] [place] [address] [phone] Noe Hdz STORAGE ADMINISTRATOR [address] [place] [address] [facility] [place] Start: 11-23-2018 End: 11-23-2018 Rehab Services Visit 11/23/2018 Rehab Services Visit Physical Therapy Marjorie Narayanan, DO [address] [place] [address] [phone] Noe Hdz STORAGE ADMINISTRATOR [address] [place] [address] [facility] [place] Start: 11-22-2018 End: 11-22-2018 Office Visit [facility] Start: 11-21-2018 End: 11-21-2018 Rehab Services Visit 11/21/2018 Rehab Services Visit Physical Therapy Marjorie Narayanan, DO [address] [place] [address] [phone] Noe Hdz STORAGE ADMINISTRATOR [address] [place] [address] [facility] [place] Start: 11-16-2018 End: 11-16-2018 Rehab Services Visit [facility] Physic [facility] Therapy [place] Start: 11-15-2018 End: 11-15-2018 Rehab Services Visit 11/15/2018 Rehab Services Visit Physical Therapy Marjorie Narayanan, [address], [place] [address] [phone] Noe Hdz PTA [facility] [place] Start: 11-11-2018 End: 11-11-2018 Rehab Services Visit 11/11/2018 Rehab Services Visit Physical Therapy Marjorie Narayanan, [address], [place] [address] [phone] Noe Hdz PTA [facility] [place] Start: 11-09-2018 End: 11-09-2018 Rehab Services Visit 11/09/2018 Rehab Services Visit Physical Therapy Marjorie Narayanan, [address], [place] [address] [phone] Hugh Duke, STORAGE ADMINISTRATOR [address] [place] [address] [phone] [facility] [place] Start: 11-07-2018 End: 11-07-2018 Rehab Services Visit 11/07/2018 Rehab Services Visit Physical Therapy Marjorie Narayanan, [address], [place] [address] [phone] Hugh Duke, STORAGE ADMINISTRATOR [address] [place] [address] [phone] [facility] [place] Start: 11-04-2018 End: 11-04-2018 Rehab Services Visit 11/04/2018 Rehab Services Visit Physical Therapy Marjorie Narayanan, [address], [place] [address] [phone] Noe Hdz PTA [facility] [place] Start: 11-03-2018 End: 11-03-2018 Rehab Services Visit 11/03/2018 Rehab Services Visit Physical Therapy Marjorie Narayanan, [address], [place] [address] [phone] Hugh Duke, STORAGE ADMINISTRATOR [facility] [place] [address] [phone] [facility] [place] Start: 11-01-2018 End: 11-01-2018 Rehab Services Visit 11/01/2018 Rehab Services Visit Physical Therapy Marjorie Narayanan, [address], [place] [address] [phone] Noe Hdz PTA [facility] [place] Start: 10-28-2018 End: 10-28-2018 Rehab Services Visit 10/28/2018 Rehab Services Visit Physical Therapy Marjorie Narayanan, [address], [place] [address] Camila Olson, PT [facility] [place] Start: 10-26-2018 End: 10-26-2018 Rehab Services Visit 10/26/2018 Rehab Services Visit Physical Therapy Marjorie Narayanan, [address], [place] [address] Camila Olson, PT [facility] [place] Start: 10-24-2018 End: 10-24-2018 Rehab Services Visit 10/24/2018 Rehab Services Visit Physical Therapy Marjorie Narayanan, [address], [place] [address] Camila Olson, PT [facility] [place] Start: 10-21-2018 End: 10-21-2018 Rehab Services Visit 10/21/2018 Rehab Services Visit Physical Therapy Marjorie Narayanan, [address], [place] [address] Noe Hdz [facility] Physical Therapy [place] Start: 10-20-2018 End: 10-20-2018 Rehab Services Visit 10/20/2018 Rehab Services Visit Physical Therapy Marjorie Narayanan, [address], [place] [address] Noe Hdz [facility] [place] Start: 10-19-2018 End: 10-19-2018 Rehab Services Visit 10/19/2018 Rehab Services Visit Physical Therapy Marjorie Narayanan, [address], [place] [address] Camila Olson, [facility] [place] Start: 10-18-2018 End: 10-18-2018 Office Visit 10/18/2018 Office Visit Physical Medicine & Rehabilitation Marjorie Narayanan, [address], [place] [address] [phone] [facility] Start: 10-13-2018 End: 10-13-2018 Rehab Services Visit 10/13/2018 Rehab Services Visit Physical Therapy Marjorie Narayanan, [address] [facility], [place] [address] [phone] Camila Olson, PT [facility] [place] Start: 10-11-2018 End: 10-11-2018 Rehab Services Visit 10/11/2018 Rehab Services Visit Physical Therapy Marjorie Narayanan Gerald, [address] [facility], [place] [address] [phone] Camila Olson, PT [facility] [place] Start: 10-07-2018 End: 10-07-2018 Office Visit 10/07/2018 Office Visit Physical Medicine & Rehabilitation Marjorie Narayanan Gerald, [address] [facility], [place] [address] [phone] [facility] Start: 10-06-2018 End: 10-06-2018 Rehab Services Visit 10/06/2018 Rehab Services Visit Physical Therapy Chetan Bledsoe, [address] [place] [address] [phone] Camila Olson, PT [facility] [place] Start: 10-05-2018 End: 10-05-2018 Rehab Services Visit 10/05/2018 Rehab Services Visit Physical Therapy Chetan Bledsoe, [address] [place] [address] [phone] Camila Olson, PT [facility] [place] Start: 10-03-2018 End: 10-03-2018 Rehab Services Visit 10/03/2018 Rehab Services Visit Physical Therapy Chetan Bledsoe, [address] [place] [address] [phone] Camila Olson, PT [facility] Start: 09-27-2018 End: 09-27-2018 Rehab Services Visit 09/27/2018 Rehab Services Visit Physical Therapy Chetan Bledsoe, DO [address] [facility] [place] [address] [place] [address] [phone] Noe Hdz PTA [facility] Start: 09-16-2018 End: 09-17-2019 ALT enzyme act/vol ALT Lab Routine Lumbosacral radiculopathy Sacroiliac joint pain Pain of left hip joint Trochanteric bursitis of left hip Expected: 09/16/2018, Expires: 09/17/2019 [facility] Comment on above: Expected: 09/16/2018, Expires: 0 Start: 09-16-2018 End: 09-17-2019 AST enzyme act/vol AST Lab Routine Lumbosacral radiculopathy Sacroiliac joint pain Pain of left hip joint Trochanteric bursitis of left hip Expected: 09/16/2018, Expires: 09/17/2019 [facility] Comment on above: Expected: 09/16/2018, Expires: 0 Start: 09-16-2018 End: 09-17-2019 Creatinine mass conc CREATININE SERUM Lab Routine Lumbosacral radiculopathy Sacroiliac joint pain Pain of left hip joint Trochanteric bursitis of left hip Expected: 09/16/2018, Expires: 09/17/2019 [facility] Comment on above: Expected: 09/16/2018, Expires: 0 Start: 09-16-2018 End: 09-17-2019 Platelets #/vol (Bld) PLATELET COUNT Lab Routine Lumbosacral radiculopathy Sacroiliac joint pain Pain of left hip joint Trochanteric bursitis of left hip Expected: 09/16/2018, Expires: 09/17/2019 [facility] Comment on above: Expected: 09/16/2018, Expires: 0 Start: 07-02-2018 HbA1c (Bld) [Mass fraction] A1C [facility] Start: 02-19-2018 Influenza vaccination [facility] Start: 11-24-2015 Screening for malignant neoplasm of colon [facility] Start: 06-27-2015 LIPID SCREEN LIPID SCREEN [facility] Start: 2014 ADVANCE DIRECTIVE DISCUSSION ADVANCE DIRECTIVE DISCUSSION [facility] Start: 2014 BONE DENSITY BONE DENSITY [facility] Start: 2014 Fall risk assessment Nehemiahadi Fall Risk Assessment [facility] Start: 2014 Pneumococcal vaccination [facility] Start: 2014 Pneumococcal Vaccine: Age 65+ (1 of 1 - PPSV23) Pneumococcal Vaccine: Age 65+ (1 of 1 - PPSV23) [facility] Start: 2014 PNEUMOVAX AGE 65 AND OVER WITH 5YR LOOKBACK (#1) PNEUMOVAX AGE 65 AND OVER WITH 5YR LOOKBACK (#1) [facility] Start: 06-27-2013 DIABETES SCREEN DIABETES SCREEN [facility] Start: 11-23-2010 Screening for malignant neoplasm of colon [facility] Start: 01-15-2009 Mammography MAMMOGRAM [facility] Start: 1999 Administration of herpes zoster vaccine Zoster Vaccines (1 of 2) [facility] Start: 1999 Colonoscopy COLON CANCER SCREENING DISCUSSION [facility] Start: 1999 Protein mass conc COLON CANCER SCREENING DISCUSSION [facility] Start: 1999 Screening for malignant neoplasm of colon [facility] Start: 1999 SHINGRIX VACCINE (1 of 2) SHINGRIX VACCINE (1 of 2) [facility] Start: 1999 Zoster vaccine hzv live for subcutaneous use ZOSTER (SHINGLES) VACCINE (1 of 2) [facility] Start: 1999 ZOSTER VACCINES (1 of 2) ZOSTER VACCINES (1 of 2) [facility] Start: 1989 Fasting lipid profile LIPID SCREENING [facility] Start: 1989 Protein mass conc MAMMOGRAM SCREENING DISCUSSION [facility] Start: 1989 Screening mammography MAMMOGRAM SCREENING DISCUSSION [facility] Start: 1971 DTaP/Tdap/Td Vaccines (1 - Tdap) DTaP/Tdap/Td Vaccines (1 - Tdap) [facility] Start: 1970 Screening for malignant neoplasm of cervix PAP SMEAR DISCUSSION [facility] Start: 02-16-1968 Third diphtheria, tetanus and acellular pertussis (DTaP) vaccination TDAP (ADULT) [facility] Start: 02-16-1968 Urine microalbumin profile DTAP,TDAP,TD (1 - Tdap) [facility] Start: 1967 Hepatitis C antibody, confirmatory test Hepatitis C Screening [facility] Start: 1967 HEPATITIS C SCREENING HEPATITIS C SCREENING [facility] Start: 1967 Tetanus vaccination TETANUS [facility] Start: 1965 COVID-19 Vaccine (1 of 2) COVID-19 Vaccine (1 of 2) [facility] Start: 1965 COVID-19 Vaccine (1) COVID-19 Vaccine (1) [facility] Start: 1961 Adolescent depression screening assessment [facility] Start: 1961 COVID-19 Vaccine (1) COVID-19 Vaccine (1) [facility] Start: 1959 Albumin DL <= 20 mg/L (U) [Mass/Vol] Urine Microalbumin [facility] Start: 1959 Diabetic foot examination Foot Exam [facility] Start: 1959 Glaucoma screening Ophthalmology Exam [facility] Start: 1959 Ophthalmic examination and evaluation Ophthalmology Exam [facility] Start: 1955 Pneumococcal Vaccine: Age 65+ (1 - PCV) Pneumococcal Vaccine: Age 65+ (1 - PCV) [facility] Start: 1955 Pneumococcal Vaccine: Age 65+ (1 of 2 - PPSV23) Pneumococcal Vaccine: Age 65+ (1 of 2 - PPSV23) [facility] Start: 1954 COVID-19 Vaccine (#1) COVID-19 Vaccine (#1) [facility] Start: 1954 COVID-19 Vaccine (1) COVID-19 Vaccine (1) [facility] Start: 02-16-1952 History and physical examination, annual for health maintenance Wellness Visit [facility] Start: 1949 COVID-19 Vaccine (#1) COVID-19 Vaccine (#1) [facility] [place] Start: 1950 Annual wellness visit Welcome to Medicare Visit [facility] Start: 1950 Creatinine measurement Creatinine Level [facility] Start: 1949 Depression screening using PHQ-9 (Patient Health Questionnaire 9) score Depression Screening (PHQ9) [facility] [place] Start: 1950 Echocardiography Echocardiogram [facility] Start: 1949 Fall risk assessment Falls Risk Assessment [facility] Start: 1949 Hepatitis C antibody, confirmatory test [facility] Start: 1949 Lipid panel Lipid Panel [facility] Start: 1949 Potassium measurement Potassium Level [facility] Start: 1949 Potassium molar conc POTASSIUM [facility] Start: 1949 Screening for malignant neoplasm of colon [facility] Start: 1949 Screening mammography Mammogram [facility] Start: 1949 Thyrotropin Qn TSH [facility] Start: 1949 HEPATITIS C SCREENING HEPATITIS C SCREENING [facility] [place] Start: 1949 Screening colonoscopy [facility] Start: 1949 End: 1949 Screening for osteoporosis [facility] Start: 1949 End: 1949 Tetanus vaccination [facility] Bacteria identified Cx Nom (Bld) [facility] Blood chemistry [facility] Work Phone: Blood chemistry [facility] Blood chemistry [facility] End: 05-24-2021 Bone density scan XR Bone Density DEXA Axial Imaging Routine Age-related osteoporosis without current pathological fracture 1 Occurrences starting 05/24/2020 until 05/24/2021 [facility] Comment on above: 1 Occurrences starting 05/24/2020 until 05/24/2021 Brain natriuretic peptide measurement [facility] CBC W Auto Different ial panel - Blood [facility] CBC W Auto Different ial panel - Blood [facility] CBC W Auto Different ial panel - Blood [facility] CBC W Auto Different ial panel - Blood [facility] CBC W Auto Different ial panel - Blood [facility] CBC W Auto Different ial panel - Blood [facility] CBC W Auto Different ial panel - Blood [facility] CBC W Auto Different ial panel - Blood [facility] CBC W Auto Different ial panel - Blood [facility] End: 05-24-2021 Complete blood count with white cell differential, manual CBC and Differential Lab Routine Well adult health check 1 Occurrences starting 05/24/2020 until 05/24/2021 [facility] Comment on above: 1 Occurrences starting 05/24/2020 until 05/24/2021 End: 09-09-2021 Complete blood count with white cell differential, manual CBC and Differential Lab Routine [facility] adult health check 1 Occurrences starting 09/09/2020 until 09/09/2021 [facility] Comment on above: 1 Occurrences starting 09/09/2020 until 09/09/2021 End: 05-24-2021 Comprehensive metabolic 2000 panel Comprehensive Metabolic Panel Lab Routine [facility] adult health check 1 Occurrences starting 05/24/2020 until 05/24/2021 [facility] Comment on above: 1 Occurrences starting 05/24/2020 until 05/24/2021 End: 09-09-2021 Comprehensive metabolic 2000 panel Comprehensive Metabolic Panel Lab Routine [facility] adult health check 1 Occurrences starting 09/09/2020 until 09/09/2021 [facility] Comment on above: 1 Occurrences starting 09/09/2020 until 09/09/2021 Comprehensive metabo lic 2000 panel - Serum or Plasma [facility] Comprehensive metabo lic 2000 panel - Serum or Plasma [facility] CT Unspecified body region WO contrast [facility] D-dimer assay, quantitative [facility] Work Phone: D-dimer assay, quantitative [facility] D-dimer assay, quantitative [facility] D-dimer assay, quantitative [facility] D-dimer assay, quantitative [facility] D-dimer assay, quantitative [facility] Diagnostic radiograp hy of lumbar spine XR SPINE LUMBOSACRAL 5 VIEWS Imaging Routine Lumbosacral radiculopathy Sacroiliac joint pain Pain of left hip joint Trochanteric bursitis of left hip 09/16/2018 8:56 AM T [facility] Comment on above: Ordered: 06/19/2019 Ordered: 06/30/2019 Ordered: 06/23/2019 DXA Bone [Mass/Area] Bone density [facility] Work Phone: End: 02-11-2025 ECG 12 lead ECG 12 lead ECG STAT Once for 1 Occurrences starting 02/11/2025 until 02/11/2025 [facility] Service Area Work Phone: Comment on above: Once for 1 Occurrences starting 02/12/20 until 02/11/2025 Gentamicin [Mass/volume] in Serum or Plasma [facility] End: 2021 HbA1c (Bld) [Mass fraction] Hemoglobin A1c Lab Routine Type 2 diabetes mellitus without complication, without long-term current use of insulin (HCC) 1 Occurrences starting 02/16/2020 until 2021 [facility] Comment on above: 1 Occurrences starting 02/16/2020 until 2021 End: 05-24-2021 HbA1c (Bld) [Mass fraction] Hemoglobin A1c Lab Routine Type 2 diabetes mellitus with diabetic polyneuropathy, without long-term current use of insulin (HCC) 1 Occurrences starting 05/24/2020 until 05/24/2021 [facility] Comment on above: 1 Occurrences starting 05/24/2020 until 05/24/2021 End: 09-09-2021 HbA1c (Bld) [Mass fraction] Hemoglobin A1c Lab Routine Type 2 diabetes mellitus with diabetic polyneuropathy, without long-term current use of insulin (HCC) 1 Occurrences starting 09/09/2020 until 09/09/2021 [facility] Comment on above: 1 Occurrences starting 09/09/2020 until 09/09/2021 Hemoglobin A1c/Hemoglobin.total in Blood [facility] Work Phone: Hemoglobin A1c/Hemoglobin.total in Blood [facility] Hemoglobin A1c/Hemoglobin.total in Blood [facility] Hepatitis B virus co re Ab [Presence] in Serum [facility] Hepatitis B virus surface IgG Ab [Presence] in Serum [facility] End: 2021 Hepatitis C antibody measurement Hepatitis C Antibody Lab Routine [facility] adult health check 1 Occurrences starting 02/16/2020 until 2021 [facility] Comment on above: 1 Occurrences starting 02/16/2020 until 2021 End: 05-24-2021 Hepatitis C antibody measurement Hepatitis C Antibody Lab Routine [facility] adult health check 1 Occurrences starting 05/24/2020 until 05/24/2021 [facility] Comment on above: 1 Occurrences starting 05/24/2020 until 05/24/2021 End: 09-09-2021 Hepatitis C antibody measurement Hepatitis C Antibody Lab Routine [facility] adult health check 1 Occurrences starting 09/09/2020 until 09/09/2021 [facility] Comment on above: 1 Occurrences starting 09/09/2020 until 09/09/2021 HIV 1+2 Ab+HIV1 p24 Ag [Presence] in Serum or Plasma by Immunoassay [facility] End: 05-24-2021 Human immunodeficiency virus test HIV 1/2 Screen (4th Generation) Lab Routine [facility] adult health check 1 Occurrences starting 05/24/2020 until 05/24/2021 [facility] Comment on above: 1 Occurrences starting 05/24/2020 until 05/24/2021 Lactate dehydrogenas e measurement [facility] Lactate dehydrogenas e measurement [facility] Lactate dehydrogenas e measurement [facility] Lactate dehydrogenas e measurement [facility] Lactate dehydrogenas e measurement [facility] End: 05-24-2021 Lipid 1996 panel Lipid Panel Lab Routine [facility] adult health check 1 Occurrences starting 05/24/2020 until 05/24/2021 [facility] Comment on above: 1 Occurrences starting 05/24/2020 until 05/24/2021 End: 09-09-2021 Lipid 1996 panel Lipid Panel Lab Routine [facility] adult health check 1 Occurrences starting 09/09/2020 until 09/09/2021 [facility] Comment on above: 1 Occurrences starting 09/09/2020 until 09/09/2021 Lipid 1996 panel - Serum or Plasma [facility] Lipid 1996 panel - Serum or Plasma [facility] End: 05-24-2021 Magnesium [Mass/Vol] Magnesium Level Lab Routine [facility] adult health check 1 Occurrences starting 05/24/2020 until 05/24/2021 [facility] Comment on above: 1 Occurrences starting 05/24/2020 until 05/24/2021 End: 09-09-2021 Magnesium [Mass/Vol] Magnesium Level Lab Routine [facility] adult health check 1 Occurrences starting 09/09/2020 until 09/09/2021 [facility] Comment on above: 1 Occurrences starting 09/09/2020 until 09/09/2021 MG Breast - bilatera l Screening [facility] Work Phone: Microalbumin measurement, urine, quantitative [facility] Comment on above: Ordered: 05/24/2020 Ordered: 09/09/2020 MR Brain WO and W contrast IV [facility] NM Heart Views W str ess and W radionuclide IV [facility] Partial thromboplast in time, activated [facility] Work Phone: Partial thromboplast in time, activated [facility] Partial thromboplast in time, activated [facility] Partial thromboplast in time, activated [facility] Patient Education [facility] Work Phone: Patient referral [facility] Work Phone: Procedure [facility] Prothrombin time [facility] Work Phone: Prothrombin time [facility] Prothrombin time [facility] Prothrombin time [facility] Reticulocyte count [facility] Skeletal X-ray of pelvis and hip XR HIP WITH PELVIS LEFT Imaging Routine Lumbosacral radiculopathy Sacroiliac joint pain Pain of left hip joint Trochanteric bursitis of left hip 09/16/2018 8:56 AM EDT [facility] [place] Thiamine measurement [facility] Thyroid stimulating hormone measurement [facility] Urine microalbumin/creatinine ratio measurement [facility] Work Phone: Urine microalbumin/creatinine ratio measurement [facility] Work Phone: [facility] Vitamin B12 measurement [facility] XR Knee 3 Views [facility] Immunizations Immunization Date Immunization Notes Care Provider [facility] 04-18-2024 Seasonal trivalent influenza vaccine, adjuvanted, preservative free Dr. Luis Cortés MD Work Phone: [facility] 04-18-2024 influenza virus vacc ine, unspecified formulation John Jansen MD Work Phone: [facility] Work Phone: 04-01-2022 influenza, injectabl e, quadrivalent, preservative free Dr. Luis Cortés Work Phone: [facility] 04-01-2022 influenza, seasonal, injectable Dr. Luis Cortés Work Phone: [facility] 03-13-2021 pneumococcal vaccine , unspecified formulation Dr. Luis Cortés Work Phone: [facility] Work Phone: 03-13-2021 pneumococcal polysaccharide vaccine, [address] Luis Cortés Work Phone: [facility] 05-24-2020 Influenza IIV4 high dose 65 and Older Liliam Corey KALLI Work Phone: [facility] 05-24-2020 influenza, high dose seasonal, preservative-free hossein [facility] 05-24-2020 flu vacc [id number] 5yr up,-PF (FLUZONE HIGH-DOSE QV) syringe hossein [facility] 06-03-2019 influenza, high dose seasonal, preservative-free Pradyumna Padival [facility] Payers Date Payer Category Payer Dual Eligibility Medicare/Medicaid Organization [facility] DUAL COMPLETE [id number] 5 2022 Self-pay [id number] 2019 Medicaid [id number] .2.7.3.154896.315 2019 Medicare [id number] 1.2.840.936311.1.13.385 .2.7.3.066554.315 2019 Medicare [id number] 2019 Medicare UHC MANAGED MEDI CARE [facility] DUAL [facility] (O SNP) [id number] 2019-Present [phone] [address] [address] [place] [address] [id number] .2.7.3.200341.315 2018 Medicare xxxxxxxxx [id number] .2.7.3.388745.315 2018 Medicaid [id number] 1.2.840.980284.1.13.172 .2.7.3.802680.315 2017 Medicaid 1.2.840.357138. 1.13.385 .2.7.3.418374.315 2017 Medicaid [id number] 2014 Medicare [id number] 2014 Medicare [id number] 2014 Medicare MEDICARE MEDICAR E A AND B xxxxxxxxxxx 2014-Present [place] xxxxxxxxxxx [id number] .2.7.3.452253.315 2009 Medicaid [employer] MEDICA[employer] [id number] 2009-Present Medicaid [id number] 1.2.840.919093.1.13.159 .2.7.3.746013.315 2008 Self-pay SELF PAY HSP/MED ICAL SELF PAY [id number] 2008-2015 SELF PAY Indemnity [id number] 1.2.840.622544.1.13.159 .2.7.3.361570.315 1949 Unknown [id number] 2.16.840.1.995578.3.579 .2.983 1949 Unknown [id number] 2.16.840.1.129535.3.579 .2.983 1949 Unknown [id number] 2.16.840.1.333690.3.579 .2.983 1949 Unknown [id number] 2.16.840.1.554653.3.579 .2.983 1949 Unknown [id number] 2.16.840.1.529523.3.579 .2.983 1949 Unknown [id number] 2.16.840.1.980193.3.579 .2.983 1949 Unknown [id number] 2.16.840.1.644296.3.579 .2.983 1949 Unknown [id number] 2.16.840.1.273780.3.579 .2.983 1949 Unknown [id number] 2.16.840.1.375748.3.579 .2.983 1949 Unknown [id number] 2.16.840.1.003174.3.579 .2.983 1949 Unknown [id number] 2.16840.1.441610.3.579 .2.983 1949 Unknown [id number] 2.16840.1.518482.3.579 .2.983 1949 Unknown [id number] 2.16840.1.405514.3.579 .2.983 1949 Unknown [id number] 2.16.840.1.572447.3.579 .2.983 1949 Unknown [id number] 2.16840.1.875113.3.579 .2.983 1949 Unknown [id number] 2.16.840.1.249228.3.579 .2.900 1949 Unknown [id number] 2.16.840.1.344428.3.579 .2.903 1949 Unknown [id number] 2.16.840.1.985047.3.579 .2.903 1949 Unknown [id number] 2.16.840.1.942028.3.579 .2.903 1949 Unknown [id number] 2.16840.1.564550.3.579 .2.903 1949 Unknown [id number] 2.16840.1.260776.3.579 .2.3 1949 Unknown [id number] 2.16840.1.618850.3.579 .2. 1949 Unknown [id number] 2.16840.1.724792.3.579 .2. 1949 Unknown [id number] 2.840.1.798474.3.579 .2. 1949 Unknown [id number] 2.840.1.786286.3.579 .2. 1949 Unknown [id number] 2.840.1.005922.3.579 .2. 1949 Unknown [id number] 2.840.1.368384.3.579 .2.90 1949 Unknown [id number] 2.840.1.790815.3.579 .2. 1949 Unknown [id number] 2.840.1.629918.3.579 .2.1243 Unknown [id number] Unknown [id number] Unknown [id number] 2.16840.1.063072.3.579 .2.462 Unknown [id number] 2.16840.1.862230.3.579 .2.462 Unknown [id number] 2.16840.1.165305.3.579 .2.462 Unknown [id number] 2.16840.1.942531.3.579 .2.462 Unknown [id number] 2.16840.1.657993.3.579 .2.462 Unknown [id number] 2.16.840.1.187613.3.579 .2.462 Unknown [id number] 2.16.840.1.928228.3.579 .2.462 Unknown [id number] 2.16.840.1.436322.3.579 .2.462 Unknown [id number] 2.16.840.1.432477.3.579 .2.462 Unknown [id number] 2.16.840.1.489576.3.579 .2.462 Unknown [id number] 2.16.840.1.742221.3.579 .2.462 Unknown [id number] 2.16.840.1.845062.3.579 .2.462 Unknown [id number] 2.16.840.1.731929.3.579 .2.462 Unknown [id number] 2.16.840.1.312434.3.579 .2.462 Unknown [id number] 2.16.840.1.081597.3.579 .2.462 Unknown [id number] 2.16.840.1.331056.3.579 .2.462 Unknown [id number] 2.16.840.1.444874.3.579 .2.462 Unknown [id number] 2.16.840.1.793499.3.579 .2.462 Unknown [id number] 2.16.840.1.075451.3.579 .2.462 Unknown [id number] 2.16.840.1.126586.3.579 .2.462 Unknown [id number] 2.16.840.1.661722.3.579 .2.462 Unknown [id number] 2.16.840.1.180627.3.579 .2.462 Unknown [id number] 2.16.840.1.917388.3.579 .2.462 Unknown [id number] 2.16.840.1.172203.3.579 .2.462 Unknown [id number] 2.16.840.1.271022.3.579 .2.462 Unknown [id number] 2.16.840.1.012406.3.579 .2.462 Unknown [id number] 2.16.840.1.917201.3.579 .2.462 Unknown [id number] 2.16.840.1.504730.3.579 .2.462 Unknown [id number] 2.16.840.1.204006.3.579 .2.462 Unknown [id number] 2.16.840.1.726711.3.579 .2.462 Unknown [id number] 2.16.840.1.853772.3.579 .2.462 Unknown [id number] 2.16.840.1.797206.3.579 .2.462 Unknown [id number] 2.16840.1.003305.3.579 .2.462 Unknown [id number] 2.16.840.1.777691.3.579 .2.462 Unknown [id number] 2.16.840.1.654757.3.579 .2.462 Unknown [id number] 2.16.840.1.211047.3.579 .2.462 Unknown [id number] 2.16.840.1.130916.3.579 .2.462 Unknown [id number] 2.16.840.1.215344.3.579 .2.462 Unknown [id number] 2.16.840.1.806968.3.579 .2.462 Unknown [id number] 2.16.840.1.943363.3.579 .2.462 Unknown [id number] 2.16.840.1.799377.3.579 .2.462 Unknown [id number] 2.16.840.1.432011.3.579 .2.462 Unknown [id number] 2.16.840.1.793564.3.579 .2.462 Unknown [id number] 2.16.840.1.490725.3.579 .2.462 Unknown [id number] 2.16.840.1.397069.3.579 .2.462 Unknown [id number] 2.16.840.1.828073.3.579 .2.462 Unknown [id number] 2.16.840.1.713996.3.579 .2.462 Unknown [id number] 2.16.840.1.481966.3.579 .2.462 Unknown [id number] 2.16.840.1.075432.3.579 .2.462 Unknown [id number] 2.16.840.1.667980.3.579 .2.462 Unknown [id number] 2.16.840.1.672391.3.579 .2.462 Unknown [id number] 2.16.840.1.896075.3.579 .2.462 Unknown [id number] 2.16.840.1.541220.3.579 .2.462 Unknown [id number] 2.16.840.1.244232.3.579 .2.462 Unknown [id number] 2.16.840.1.269786.3.579 .2.462 Unknown [id number] 2.16.840.1.989649.3.579 .2.462 Unknown [id number] 2.16.840.1.696624.3.579 .2.462 Social History Date Type Detail Facility Start: 08-24-2017 End: 09-24-2023 Tobacco smoking status GAIS Unknown if ever smoked [facility] Start: 1950 Sex Assigned At Not on file [employer] Work Phone: Start: 09-16-2018 End: 11-27-2024 Tobacco smoking status GAIS Former smoker [facility] End: 11-19-2004 History of tobacco use Current smoker [facility] Start: 06-07-2019 End: 01-12-2021 Alcohol intake Ex-drinker (finding) [facility] [place] Exposure to SARS-CoV -2 (event) Not sure [facility] Start: 06-02-2019 End: 02-16-2020 Tobacco use and exposure Former user [facility] Start: 02-16-2019 End: 02-11-2025 Alcohol intake Not Currently [facility] End: 11-19-2004 History of tobacco use Cigarette Smoker [facility] Start: 06-27-2010 End: 02-11-2025 Cigarettes smoked current (pack per day) - Reported [facility] Start: 06-27-2010 Alcohol intake Current non-dr drive man of alcohol (finding) [facility] Start: 10-15-2020 History SDOH Social Connections Phone 3 [facility] Start: 10-15-2020 History SDOH Financial 4 [facility] Start: 10-15-2020 History SDOH Food Worry 1 [facility] Start: 10-15-2020 History SDOH Transpo rt Med 2 [facility] Start: 1950 Sex Assigned At Female W [facility] Start: 09-07-2024 End: 09-27-2024 Sex Female (finding) [facility] Start: 02-11-2025 Tobacco use and exposure Smokeless tobacco non-user [facility] Work Phone: Start: 05-16-2022 Sex Female [facility] NEGATED: Highlighted row [facility] Goals Date Patient Goal Desired Activity /State Comment on above: 1. The patient will safely, correctly, and [...] AROM and at least good strength in core and LE musculature to assist with prior household [...] environment, current health status, and mobility limitations. Functional Status Date Assessment Result Facility 02-11-2025 [facility] everity rating scale screener - recent [C-SSRS] [facility] Work Phone: Mental Status Date Assessment Result Facility 11-27-2024 Cognitive function Voice/Name [facility] Work Phone: 11-22-2024 Cognitive function Voice/Name [facility] Work Phone: 11-20-2024 Cognitive function Awake;Alert;A ppropriate;Follow s Commands [facility] Work Phone: 11-16-2024 Cognitive function Voice/Name [facility] Work Phone: 11-15-2024 Cognitive function Voice/Name [facility] Work Phone: 11-14-2024 Cognitive function Awake;Alert;A ppropriate;Follow s Commands [facility] Work Phone: 11-14-2024 Cognitive function Awake;Alert;Appropriat e [facility] Work Phone: 09-24-2023 Cognitive function Voice/Name [facility] Work Phone: 06-05-2022 Cognitive function Voice/Name [facility] Work Phone: 12-31-2021 Cognitive function Level Of Cons ciousness Awake;Alert;Appropriate;Follow s Commands [facility] Work Phone: Clinical Notes 10-01-2005 to 02-12-2025 Discharge InstructionsAttachmentsJohn Jansen MD - 02/11/2025 10:49 PM Joselyn Jansen MD - 02/11/2025 10:49 PM EDT Note Date & Type Note Facility 02-12-2025 Hospital Discharg e instructions John Jansen MD - 02/12/2025 12:09 AM EDT Feel free to return to the emergency department with any additional concerns. The following attachments cannot be sent through Care Everywhere.Vertigo ED discharge instructions (Taiwanese)documented in this encounter [facility] Work Phone: 02-11-2025 Physician Emergency department Note 74-year-old female history of COPD wears oxygen when she is up and active presents with a chief complaint of dizziness x 1 month. States she has seen her primary care physician and ENT and she is getting conflicting results. She denies any history of vertigo. She describes the dizziness as feeling off balance and drunk . She has to ambulate with her walker which she did not use to in the past. The dizziness occurs with any type of movement. No headache double vision or blurry vision. No chest pain or radiating symptoms to extremity neck or jaw. Review of Systems Physical Exam Vitals and nursing note reviewed. Constitutional: Appearance: She is not ill-appearing or toxic-appearing. HENT: Head: Normocephalic and atraumatic. Right Ear: Tympanic membrane normal. No drainage or swelling. Tympanic membrane is not bulging. Left Ear: Tympanic membrane normal. No drainage or swelling. Tympanic membrane is not injected or bulging. Nose: Nose normal. Mouth/Throat: Mouth: Mucous membranes are moist. Pharynx: No oropharyngeal exudate or posterior oropharyngeal erythema. Eyes: Extraocular Movements: Extraocular movements intact. Right eye: No nystagmus. Left eye: No nystagmus. Conjunctiva/sclera: Conjunctivae normal. Pupils: Pupils are equal, round, and reactive to light. Cardiovascular: Rate and Rhythm: Normal rate and regular rhythm. Pulmonary: Effort: Pulmonary effort is normal. No respiratory distress. Breath sounds: Normal breath sounds. No wheezing, rhonchi or rales. Abdominal: General: There is no distension. Palpations: Abdomen is soft. There is no mass. Tenderness: There is no abdominal tenderness. There is no guarding. Musculoskeletal: General: No deformity. Normal range of motion. Cervical back: Neck supple. No tenderness. Skin: General: Skin is warm and dry. Neurological: General: No focal deficit present. Mental Status: She is alert and oriented to person, place, and time. Psychiatric: Mood and Affect: Mood normal. Labs Reviewed - No data to display CT head wo IV contrast Final Result No acute intracranial abnormality. MACRO: None Signed by: Laxmi Gardner 02/11/2025 11:52 PM Dictation workstation: [id number] Procedures Medical Decision Making 74-year-old female history of COPD wears oxygen when she is up and active presents with a chief complaint of dizziness x 1 month. States she has seen her primary care physician and ENT and she is getting conflicting results. She denies any history of vertigo. She describes the dizziness as feeling off balance and drunk . She has to ambulate with her walker which she did not use to in the past. The dizziness occurs with any type of movement. No headache double vision or blurry vision. No chest pain or radiating symptoms to extremity neck or jaw. CT scan of the head was negative for acute findings such as bleed or mass. She received 25 mg p.o. Antivert x 1. She did report an improvement. Will discharge the patient on that medication for a week and recommend following up with her primary care physician. Amount and/or Complexity of Data Reviewed ECG/medicine tests: independent interpretation performed. Details: Sinus rhythm rate of 66, narrow complex, normal axis, no ST elevation or depression, no ectopy. Diagnoses as of 02/12/258 Vertigo John Jansen MD 02/12/258 [facility] Work Phone: 02-11-2025 Emergency department Note 74-year-old female history of COPD wears oxygen when she is up and active presents with a chief complaint of dizziness x 1 month. States she has seen her primary care physician and ENT and she is getting conflicting results. She denies any history of vertigo. She describes the dizziness as feeling off balance and drunk . She has to ambulate with her walker which she did not use to in the past. The dizziness occurs with any type of movement. No headache double vision or blurry vision. No chest pain or radiating symptoms to extremity neck or jaw. Review of Systems Physical Exam Vitals and nursing note reviewed. Constitutional: Appearance: She is not ill-appearing or toxic-appearing. HENT: Head: Normocephalic and atraumatic. Right Ear: Tympanic membrane normal. No drainage or swelling. Tympanic membrane is not bulging. Left Ear: Tympanic membrane normal. No drainage or swelling. Tympanic membrane is not injected or bulging. Nose: Nose normal. Mouth/Throat: Mouth: Mucous membranes are moist. Pharynx: No oropharyngeal exudate or posterior oropharyngeal erythema. Eyes: Extraocular Movements: Extraocular movements intact. Right eye: No nystagmus. Left eye: No nystagmus. Conjunctiva/sclera: Conjunctivae normal. Pupils: Pupils are equal, round, and reactive to light. Cardiovascular: Rate and Rhythm: Normal rate and regular rhythm. Pulmonary: Effort: Pulmonary effort is normal. No respiratory distress. Breath sounds: Normal breath sounds. No wheezing, rhonchi or rales. Abdominal: General: There is no distension. Palpations: Abdomen is soft. There is no mass. Tenderness: There is no abdominal tenderness. There is no guarding. Musculoskeletal: General: No deformity. Normal range of motion. Cervical back: Neck supple. No tenderness. Skin: General: Skin is warm and dry. Neurological: General: No focal deficit present. Mental Status: She is alert and oriented to person, place, and time. Psychiatric: Mood and Affect: Mood normal. Labs Reviewed - No data to display CT head wo IV contrast Final Result No acute intracranial abnormality. MACRO: None Signed by: Laxmi Gardner 02/11/2025 11:52 PM Dictation workstation: [id number] Procedures Medical Decision Making 74-year-old female history of COPD wears oxygen when she is up and active presents with a chief complaint of dizziness x 1 month. States she has seen her primary care physician and ENT and she is getting conflicting results. She denies any history of vertigo. She describes the dizziness as feeling off balance and drunk . She has to ambulate with her walker which she did not use to in the past. The dizziness occurs with any type of movement. No headache double vision or blurry vision. No chest pain or radiating symptoms to extremity neck or jaw. CT scan of the head was negative for acute findings such as bleed or mass. She received 25 mg p.o. Antivert x 1. She did report an improvement. Will discharge the patient on that medication for a week and recommend following up with her primary care physician. Amount and/or Complexity of Data Reviewed ECG/medicine tests: independent interpretation performed. Details: Sinus rhythm rate of 66, narrow complex, normal axis, no ST elevation or depression, no ectopy. Diagnoses as of 02/12/258 Vertigo John Jansen MD 02/12/258 documented in this encounter [facility] Work Phone: 01-12-2025 Progress note Note Date/Time January 12, 2025 3:35pm [facility] [address] [place] [id number] Progress Note - Wound Care 01/12/25 1524 MR#: [id number] Acct: [id number] Name: LIZ WADSWORTH Rep #:[id number] : 1950 74 From: Sneha Rosa DO PCP: Dr. Luis Cortés MD Status:R EG RCR Location: History of Present Illness Date of Service: 01/12/25 Chief Complaint: ulcers b/l LE, bilateral lower extremity swelling History of Wound: Liz is a pleasant 74 yo woman that presents to the wound center for bilateral lower extremity edema and blisters and drainage of her bilateral lower extremities. She has had increased edema the last 2 weeks and her legs started seeping a few days ago. She has been wearing her tubigrip compression and had been using the lymphedema pumps until they started seeping fluid. She tries to elevate her legs when she is sitting but is not always consistent with doing this. She has been wrapping her leg with gauze when it is seeping but otherwise has not been doing any regular dressings. Patient has been treated at the wound center in the past for similar wounds, most recently October 2023. She has also been seen in the vascular surgery clinic where she was evaluated her for BLE DVT and venous insufficiency. Patienthas a h/o provoked DVTs and has been off treatment with Eliquis since June 01/2023. GSV ablation has been done to her right lower leg. She has received lymphedema pumps that were ordered during her last treatment course and has beenusing these. Last venous study was 03/2022. Last A1C 01/2023 was 6.4%. Last TSH - 01/2022 Patient's medical history is also significant for CHF, COPD, T2DM, lymphedema. She has a CPAP but has not been using this due to needing a new mask. She statesthat a prescription was to be sent and she never received the mask. Her current mask has a hole in it. Subjective Subjective Liz returns today for treatment of edema/ulcers to bilateral lower legs. She underwent venous ablation of left lower leg on 07/27/2024 but has not had resolution of drainage from the left lower leg since then with intermittent ulcer development. She has had improvement since last week and is tolerating treatment with Levofloxacin and using super absorbers and roll gauze and KATELYNN bandages. I suspect noncompliance with compression or another underlying issue such as exacerbation of heart failure or diuretic failure. Objective Data Objective Data Vital Signs: Vital Signs Temp Pulse Resp BP O2 Del Method FiO2 97.5 F L 84 18 134/83 H Room Air 91 01/12/25 11:12 01/12/25 11:12 01/12/25 11:12 01/12/25 11:12 01/05/25 10:58 12/29/24 10:00 Oxygen Delivery Method Room Air Lab / Micro Data 01/12/25 12:32 01/12/25 12:32 Labs: Laboratory Results - last 24 hr 01/12/25 12:32: WBC 7.8, RBC 5.10, Hgb 13.1, Hct 42.2, MCV 82.7, MCH 25.7 L, MCHC 31.0 L, RDW Std Deviation 44.9 H, RDW Coeff of Mike 14.9 H, Plt Count 268, MPV 9.7, Immature Gran % (Auto) 1.000 H, Neut % (Auto) 70.5 H, Lymph % (Auto) 17.7 L, [place] % (Auto) 6.7, Eos % (Auto) 3.2, Baso % (Auto) 0.9, Absolute Neuts (auto) 5.5, Absolute Lymphs (auto) 1.38, Nucleated RBC % 0, Sodium 140, Potassium 4.1, Chloride 104, Carbon Dioxide 25.5, Anion Gap 11, BUN 15, Creatinine 0.88, Est GFR (MDRD) Non-Af 69, BUN/Creatinine Ratio 17.0, Glucose 134 H, Calcium 9.2, Magnesium 1.9, Iron 35 L, Ferritin 34, Total Bilirubin 0.39,AST 17, ALT 12, Alkaline Phosphatase 102, Total Protein 6.8, Albumin 3.5, Globulin 3.2, Albumin/Globulin Ratio 1.1, Vitamin D 25-Hydroxy 13.8 L, TSH 2.450, Free T4 1.30, Free T3 pg/dL 2.4 Micro: Microbiology 12/29/24 11:07 Wound - Leg, Left Gram Stain - Final 12/29/24 11:07 Wound - Leg, Left Wound Culture - Final Proteus mirabilis Citrobacter braakii Streptococcus group C Enterococcus faecalis Pseudomonas aeruginosa Klebsiella pneumoniae sp pneum 12/29/24 11:07 Wound - Leg, Left Anaerobic Culture - Final Actinotignum schaalii Physical Exam Const alert, oriented x3, no apparent distress and healthy appearing General Appearance: cooperative; Negative for combative or lethargic Orientation / Consciousness: awake Exam Limitations: no limitations Nutritional Appearance: obese HEENT normocephalic and head/scalp atraumatic Eyes EOMs intact bilaterally General Eye: normal appearance of both eyes Neck full ROM General: trachea midline Lymph Lymphatic: lymphedema severe and pitting Resp normal respiratory effort and no use of accessory muscles Effort and Inspection: Negative for labored, stridor or audible wheezes Cardio regular rate and regular rhythm Back/Spine Cervical Spine: cervical ROM normal Extremity full ROM, normal capillary refill and no clubbing, cyanosis or edema General Extremity: edema bilateral lower extremity Details: severe (with skin changes associated with lymphedema, thickened nodular appearance from mid allen to ankle) Skin General Skin Exam: erythema, venous stasis and dermatitis Wounds: wounds noted Wound Narrative: as in clinical panel, erythema of left lower leg and light serous drainage, right lateral leg epithelialized and no drainage appreciated, nodular appearanceof skin associated with lymphedema bilaterally Neuro oriented x3, CN's II-XII intact bilaterally, no focal motor deficits and no sensory deficits noted Psych thought process normal, cooperative, affect normal, speech normal and activity/motor behavior normal Debridement Note Debridement Note Wound debrided: left lateral LE Laterality: Left No debridement was completed: No debridement was completed today (no slough present) Post-Debridement Measurements and Additional Note: Post-Debridement Measurements/Treatment [id number] - Nurse 1 - General Ulcer Assessment Start: 12/21/24 13:51 Freq: Status: Active Protocol: KELSEY Activity Type Activity Date Activity User E-sign Co-sign Detail Recorded Client Recorded Date Recorded By Document 12/21/24 13:54 KW [id number] 12/21/24 13:55 KW Edit Result 12/21/24 13:54 KW (1) [id number] 12/21/24 14:04 KW Document 12/29/24 10:00 KW [id number] 12/29/24 10:14 KW Document 01/05/25 10:58 KW [id number] 01/05/25 11:15 KW Document 01/12/25 11:12 RB [id number] 01/12/25 11:15 RB (1) Temperature (97.8 F-99.1 F) => 98.4 F Pulse Rate (60-100) => 95 Blood Pressure (90/60-120/80) => 153/72 H Blood Pressure Mean (mm Hg) => 99 12/21/24 12/29/24 01/05/25 13:54 10:00 10:58 - Today's Visit Information Type of service Nurse-only Follow-up Visit Follow-up Visit Visit (Physician/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 (Physician/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 ) ) Arrival Mode Ambulatory, Ambulatory, Ambulatory, Walker Walker Walker Transfer Assistance Accompanied by Patient Identification Verified (Name & Yes Yes Yes ) Patient Requires Transmission-Based Precautions Vital Signs Temperature (97.8 F-99.1 F) 98.4 F 96.5 F L 96.2 F L Temperature Source Temporal Temporal Temporal Pulse Rate (60-100) 95 66 66 Pulse Location Monitor Monitor Monitor Respiratory Rate (12-18) 18 18 18 Respiratory rate source Observation Observation Observation Oxygen Delivery Method Room Air Room Air Room Air FIO2 % 91 Blood Pressure (90/60-120/80) 153/72 H 135/60 H 129/66 H Blood Pressure Mean (mm Hg) 99 85 87 Source Monitor Monitor Monitor Position Semi-Fowlers Semi-Fowlers Semi-Fowlers Blood Pressure Location Left Arm Right Forearm Right Forearm History Since Last Visit- (Skip if this is Patient's initial visit) Have you changed medications since your No No No last visit? Any new allergies or adverse reactions No No No Had a fall/change in ADL's that may No No No increase risk of falls Signs or symptoms of abuse and/or No No No neglect since last visit Have you been in the hospital since your No No No last visit? Has dressing in place as prescribed Yes Yes Yes Has compression in place as prescribed Yes Yes Yes Has offloadiing in place as prescribed N/A N/A N/A Experienced any changes in pain level or No No No management Left Footwear Regular Shoe Regular Shoe Regular Shoe Right Footwear Regular Shoe Regular Shoe Regular Shoe Pain Scale: 0-10 Numeric Is Patient Pain Free? Yes Yes Yes 01/12/25 11:12 WC - Today's Visit Information Type of service Follow-up Visit (Physician/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 ) Arrival Mode Wheelchair Transfer Assistance Manual Accompanied by Patient Identification Verified (Name & Yes ) Patient Requires Transmission-Based No Precautions Vital Signs Temperature (97.8 F-99.1 F) 97.5 F L Temperature Source Temporal Pulse Rate (60-100) 84 Pulse Location Monitor Respiratory Rate (12-18) 18 Respiratory rate source Observation Oxygen Delivery Method FIO2 % Blood Pressure (90/60-120/80) 134/83 H Blood Pressure Mean (mm Hg) 100 Source Monitor Position Sitting Blood Pressure Location Left Arm History Since Last Visit- (Skip if this is Patient's initial visit) Have you changed medications since your No last visit? Any new allergies or adverse reactions No Had a fall/change in ADL's that may No increase risk of falls Signs or symptoms of abuse and/or No neglect since last visit Have you been in the hospital since your No last visit? Has dressing in place as prescribed Yes Has compression in place as prescribed Yes Has offloadiing in place as prescribed N/A Experienced any changes in pain level or No management Left Footwear Regular Shoe Right Footwear Regular Shoe Pain Scale: 0-10 Numeric Is Patient Pain Free? Yes - Nurse 1 - General Ulcer Measurement Start: 12/21/24 13:51 Freq: Status: Active Protocol: Activity Type Activity Date Activity User E-sign Co-sign Detail Recorded Client Recorded Date Recorded By Document 12/21/24 14:04 KW [id number] 12/21/24 14:06 KW Document 12/29/24 10:00 KW [id number] 12/29/24 10:14 KW Document 01/05/25 10:58 KW [id number] 01/05/25 11:15 KW Document 01/12/25 11:12 RB [id number] 01/12/25 11:15 RB 12/21/24 12/29/24 01/05/25 14:04 10:00 10:58 Wound Center Nurse 1 12. lle -Combined with other wound -Current Size (cm) - Length 0.1 -Current Size (cm) - Width 0.1 -Current Size (cm) - Depth 0 -Total Square Cm 0.01 -Date of Last Picture (Recall this 01/05/25 field) -Photo Taken -Tunneling -Undermining/Tunneling -Circular Undermining -Exudate Amt Large -Exudate Type Serosanguineous -Wound Margin Indistinct, Non -Visible -Granulation Amt Large (67-100%) -Granulation Quality [place] -Slough/Fibrin -Necrosis Amt -Necrotic Tissue Type -Structure Exposed -Texture (Adrianna-wound Skin Appearance) Assessed Assessed -Moisture (Adrianna-wound Skin Appearance) Assessed Assessed -Color (Adrianna-wound Skin Appearance) Assessed, Assessed, Erythema Erythema -Temperature (Adrianna-wound Skin No Abnormality No Abnormality Appearance) (Pt Warm) (Pt Warm) -Tenderness on Palpation (Adrianna-wound No No Skin Appearance) -Ulcer Cleansing Soap and Water Soap and Water -Foul Odor after Cleansing No No -Anesthetic Used 5% Lidocaine Gel -Wound Comment(s) not measured during nurse 1 7. RLE lateral -Combined with other wound -Current Size (cm) - Length 0.1 -Current Size (cm) - Width 0.1 -Current Size (cm) - Depth 0 -Total Square Cm 0.01 -Date of Last Picture (Recall this 01/05/25 field) -Photo Taken -Tunneling -Undermining/Tunneling -Circular Undermining -Exudate Amt Large -Exudate Type Serosanguineous -Wound Margin Indistinct, Non -Visible -Granulation Amt Large (67-100%) -Granulation Quality [place] -Slough/Fibrin -Necrosis Amt -Necrotic Tissue Type -Structure Exposed -Texture (Adrianna-wound Skin Appearance) Assessed -Moisture (Adrianna-wound Skin Appearance) Assessed -Color (Adrianna-wound Skin Appearance) Assessed, Erythema -Temperature (Adrianna-wound Skin No Abnormality Appearance) (Pt Warm) -Tenderness on Palpation (Adrianna-wound No Skin Appearance) -Ulcer Cleansing Soap and Water -Foul Odor after Cleansing No -Anesthetic Used 5% Lidocaine Gel -Wound Comment(s) not measured during nurse 1 Lower Limb Edema Present Right Calf (cm) 49 49.1 50 Right Ankle (cm) 28.5 29.1 30.5 Left Calf (cm) 54 51 Left Ankle (cm) 29.5 47.5 30.5 Left Foot (cm) 29.3 01/12/25 11:12 Wound Center Nurse 1 12. lle -Combined with other wound No -Current Size (cm) - Length 0.1 -Current Size (cm) - Width 0.1 -Current Size (cm) - Depth 0.1 -Total Square Cm 0.01 -Date of Last Picture (Recall this field) -Photo Taken Yes -Tunneling No -Undermining/Tunneling No -Circular Undermining No -Exudate Amt Medium -Exudate Type Serosanguineous -Wound Margin -Granulation Amt Large (67-100%) -Granulation Quality [place] -Slough/Fibrin Yes -Necrosis Amt Small (1-33%) -Necrotic Tissue Type Adherent Slough -Structure Exposed N/A -Texture (Adrianna-wound Skin Appearance) Assessed, Excoriation -Moisture (Adrianna-wound Skin Appearance) Assessed -Color (Adrianna-wound Skin Appearance) Assessed -Temperature (Adrianna-wound Skin No Abnormality Appearance) (Pt Warm) -Tenderness on Palpation (Adrianna-wound No Skin Appearance) -Ulcer Cleansing Wound Cleanser -Foul Odor after Cleansing No -Anesthetic Used 5% Lidocaine Gel -Wound Comment(s) 7. RLE lateral -Combined with other wound No -Current Size (cm) - Length 0.1 -Current Size (cm) - Width 0.1 -Current Size (cm) - Depth 0.1 -Total Square Cm 0.01 -Date of Last Picture (Recall this field) -Photo Taken Yes -Tunneling No -Undermining/Tunneling No -Circular Undermining No -Exudate Amt Large -Exudate Type Serosanguineous -Wound Margin Distinct, Outline Attached -Granulation Amt Medium (34-66%) -Granulation Quality [place] -Slough/Fibrin Yes -Necrosis Amt Medium (34-66%) -Necrotic Tissue Type Adherent Slough -Structure Exposed N/A -Texture (Adrianna-wound Skin Appearance) Assessed, Excoriation -Moisture (Adrianna-wound Skin Appearance) Assessed -Color (Adrianna-wound Skin Appearance) Assessed -Temperature (Adrianna-wound Skin No Abnormality Appearance) (Pt Warm) -Tenderness on Palpation (Adrianna-wound No Skin Appearance) -Ulcer Cleansing Wound Cleanser -Foul Odor after Cleansing No -Anesthetic Used 5% Lidocaine Gel -Wound Comment(s) Lower Limb Edema Present Yes Right Calf (cm) 62.5 Right Ankle (cm) 30.2 Left Calf (cm) 59 Left Ankle (cm) 31.4 Left Foot (cm) WC - Nurse 2 - General Ulcer CM Notes Start: 12/21/24 13:51 Freq: Status: Active Protocol: Activity Type Activity Date Activity User E-sign Co-sign Detail Recorded Client Recorded Date Recorded By Document 12/29/24 10:56 [id number] 12/29/24 11:09 GM Document 01/05/25 12:02 DS [id number] 01/05/25 12:04 DS Document 01/12/25 11:24 DS [id number] 01/12/25 11:29 DS 12/29/24 01/05/25 01/12/25 10:56 12:02 11:24 Wound Center Nurse 2 12. lle -Time 11:04 12:02 11:24 -Correct Patient Yes Yes Yes -Correct Side, Site, Position Yes Yes Yes -Correct Procedure Yes -Procedure Performed Yes No No -Type of Procedure Debridement -Clinical Debridement Epidermis / Dermis -Tissue Removed Epidermis -Post Debridement (cm) - Length 11.0 7.5 -Post Debridement (cm) - Width 8.0 5.5 -Post Debridement (cm) - Depth 0.1 0.1 -Total Square (Post) (cm) 88.00 41.25 -Area of Debridement (cm) - Length 11.0 7.5 -Area of Debridement (cm) - Width 8.0 5.5 -Total Square (Area) (cm) 88.00 41.25 -Tunneling No -Undermining/Tunneling No -Circular Undermining No -Wound/Ulcer Outcome Not Healed Not Healed Not Healed -Ulcer Cleansing Rinsed/ Irrigated with Saline -Foul Odor after Cleansing No -Bioengineered Tissue No -Bleeding Controlled with NA -Treatment Response Procedure Tolerated Well -Offloading No -Debridement - Open, 1st 20sq cm No 7. RLE lateral -Time 11:08 12:03 11:24 -Correct Patient Yes Yes Yes -Correct Side, Site, Position Yes Yes Yes -Correct Procedure Yes -Procedure Performed Yes No No -Type of Procedure Debridement -Clinical Debridement Epidermis / Dermis -Tissue Removed Epidermis -Post Debridement (cm) - Length 5.5 3.5 -Post Debridement (cm) - Width 6.5 2.0 -Post Debridement (cm) - Depth 0.1 0.1 -Total Square (Post) (cm) 35.75 7.00 -Area of Debridement (cm) - Length 5.5 3.5 -Area of Debridement (cm) - Width 6.5 2.0 -Total Square (Area) (cm) 35.75 7.00 -Tunneling No -Undermining/Tunneling No -Circular Undermining No -Wound/Ulcer Outcome Not Healed Not Healed Not Healed -Ulcer Cleansing Rinsed/ Irrigated with Saline -Foul Odor after Cleansing No -Bioengineered Tissue No -Bleeding Controlled with NA -Treatment Response Procedure Tolerated Well -Offloading No -Debridement - Open, 1st 20sq cm Yes -Debridement, Open, ea addt'l 20sq cm 6 or part thereof Pain Scale: 0-10 Numeric Is Patient Pain Free? Yes Yes Yes WC - Nurse 3 - General Ulcer D/C NN Start: 12/21/24 13:51 Freq: Status: Active Protocol: Activity Type Activity Date Activity User E-sign Co-sign Detail Recorded Client Recorded Date Recorded By Document 12/21/24 13:55 KW [id number] 12/21/24 13:55 KW Edit Result 12/21/24 13:55 KW (1) [id number] 12/21/24 14:06 KW Document 12/29/24 11:16 BMF [id number] 12/29/24 11:18 BMF Document 01/05/25 12:11 KW [id number] 01/05/25 12:12 KW Document 01/12/25 12:15 RB [id number] 01/12/25 12:18 RB (1) 12. lle - Primary Dressing Applied Optilok 5x5 1/2 => Optilok 6.5x10 - Optilok 5x5 1/2 1 => - Optilok 6.5x10 => 1 12/21/24 12/29/24 01/05/25 13:55 11:16 12:11 Wound Care Center Nurse 3 12. lle -Ulcer Cleansing Soap and Water Soap and Water -Primary Dressing Applied Optilok 6.5x10 Aquacel Extra, Aquacel AG 4x4, Optilok 5x5 1/2 Optilok 6.5x10 -Other Dressing DRSGS PER RB RN -Primary Dressing Covered/Secured with Dry Gauze Dry Gauze & Roll Gauze -Aquacel Extra 1 -Aquacel AG 4x4 1 -Optilok 5x5 1/2 1 -Optilok 6.5x10 1 1 7. RLE lateral -Ulcer Cleansing Soap and Water -Primary Dressing Applied Aquacel Extra, Aquacel AG 4x4, Optilok 5x5 1/2 Optilok 5x5 1/2 -Other Dressing DRSG PER RB RN -Primary Dressing Covered/Secured with Dry Gauze & Roll Gauze, Secured with Tape -Other Covering -Aquacel Extra 0 -Aquacel AG 4x4 1 -Optilok 5x5 1/2 1 1 BLE -Multi-Layered Wrap Application Unna Boot - Unna Boot - Bilateral Bilateral -Compression Wrap [place] Wrap -Other APPLIED PER RB 4 in and 6 in RN -Unna- Bilat (Qty applied) 1 1 Treatment Response Procedure Tolerated Well Pain Scale: 0-10 Numeric Is Patient Pain Free? Yes Yes Yes WC - Visit Discharge Discharge Condition Stable Stable Stable Ambulatory Status Ambulatory, Ambulatory, Ambulatory, Walker Walker Walker Transportation Private Auto Private Auto Private Auto Accompanied by Medication Reconcilliation completed & No No provided to patient/care provider Clinical Summary of Care Provided Yes Yes 01/12/25 12:15 Wound Care Center Nurse 3 12. lle -Ulcer Cleansing -Primary Dressing Applied Aquacel AG 4x4 -Other Dressing ABD -Primary Dressing Covered/Secured with Dry Gauze & Roll Gauze, Secured with Tape -Aquacel Extra -Aquacel AG 4x4 1 -Optilok 5x5 1/2 -Optilok 6.5x10 7. RLE lateral -Ulcer Cleansing Rinsed/ Irrigated with Saline -Primary Dressing Applied -Other Dressing AQUACEL AG/ ABD -Primary Dressing Covered/Secured with Dry Gauze & Roll Gauze, Other -Other Covering abd pad -Aquacel Extra -Aquacel AG 4x4 -Optilok 5x5 1/2 BLE -Multi-Layered Wrap Application -Compression Wrap Katelynn Wrap -Other -Unna- Bilat (Qty applied) Treatment Response Procedure Tolerated Well Pain Scale: 0-10 Numeric Is Patient Pain Free? Yes WC - Visit Discharge Discharge Condition Stable Ambulatory Status Wheelchair Transportation Private Auto Accompanied by Medication Reconcilliation completed & No provided to patient/care provider Clinical Summary of Care Provided Yes Assessment/Plan Assessment/Plan (1) Non-pressure chronic ulcer left lower leg, limited to breakdown skin: CODE(S): L97.921 - Non-pressure chronic ulcer of unspecified part of left lower leg limited to breakdown of skin (2) Venous insufficiency: CODE(S): I87.2 - Venous insufficiency (chronic) (peripheral) (3) Edema of both lower extremities: CODE(S): R60.0 - Localized edema (4) Lymphedema: CODE(S): I89.0 - Lymphedema, not elsewhere classified (5) Essential hypertension: CODE(S): I10 - Essential (primary) hypertension (6) Morbid obesity with BMI of 45.0-49.9, adult: CODE(S): E66.01 - Morbid (severe) obesity due to excess calories; Z68.42 -Body mass index [BMI] 45.0-49.9, adult (7) Debility: CODE(S): R53.81 - Other malaise (8) Osteoarthritis: CODE(S): M19.90 - Unspecified osteoarthritis, unspecified site QUALIFIERS: Osteoarthritis location: multiple joints Osteoarthritis type: primary Qualified Code(s): M15.9 - Polyosteoarthritis, unspecified (9) COPD (chronic obstructive pulmonary disease): CODE(S): J44.9 - Chronic obstructive pulmonary disease, unspecified QUALIFIERS: COPD type: unspecified COPD Qualified Code(s): J44.9 - Chronic obstructive pulmonary disease, unspecified (10) Chronic hypoxemic respiratory failure: CODE(S): J96.11 - Chronic respiratory failure with hypoxia (11) Pulmonary hypertension: CODE(S): I27.20 - Pulmonary hypertension, unspecified (12) Hypothyroidism: CODE(S): E03.9 - Hypothyroidism, unspecified QUALIFIERS: Hypothyroidism type: unspecified Qualified Code(s): E03.9 - Hypothyroidism, unspecified (13) Type 2 diabetes mellitus: CODE(S): E11.9 - Type 2 diabetes mellitus without complications QUALIFIERS: Diabetes mellitus oil heaterman insulin use: without oil heaterman use Diabetes mellitus complication status: with other specified complication Qualified Code(s): E11.69 - Type 2 diabetes mellitus with other specified complication (14) DOLORES (obstructive sleep apnea): CODE(S): G47.33 - Obstructive sleep apnea (adult) (pediatric) (15) Cellulitis of left lower extremity: CODE(S): L03.116 - Cellulitis of left lower limb (16) Venous ulcer with fat layer exposed: CODE(S): I83.009 - Varicose veins of unspecified lower extremity with ulcer of unspecified site; L97.902 - Non-pressure chronic ulcer of unspecified part of unspecified lower leg with fat layer exposed (17) Venous stasis ulcer of right calf with fat layer exposed: CODE(S): I83.012 - Varicose veins of right lower extremity with ulcer of calf; L97.212 - Non-pressure chronic ulcer of right calf with fat layer exposed QUALIFIERS: Varicose vein presence: with varicose veins Qualified Code(s): I83.012 - Varicose veins of right lower extremity with ulcer of calf; L97.212 - Non-pressure chronic ulcer of right calf with fat layer exposed (18) Venous stasis ulcer of left calf with fat layer exposed: CODE(S): I83.022 - Varicose veins of left lower extremity with ulcer of calf; L97.222 - Non-pressure chronic ulcer of left calf with fat layer exposed QUALIFIERS: Varicose vein presence: with varicose veins Qualified Code(s): I83.022 - Varicose veins of left lower extremity with ulcer of calf; L97.222 - Non-pressure chronic ulcer of left calf with fat layer exposed PLAN: Plan Evaluation and debridement performed today in clinic as annotated above. At home wound-care instructions: Will apply Aquacel extra and superabsorber to left lateral leg and to right lateral leg and wrap with Kerlix and secure with KATELYNN bandage and change daily. She was instructed to keep dressings clean and dry. Will have her use lymphedema pumps for 60 minutes 2-3 times daily. She has been noncompliant with pumps and was encouraged to increase frequency. Also, encouraged to take diuretic daily. Off-loading: The patient was instructed to avoid pressure and friction on the affected areas. Reposition every 2 hours at minimum. Avoid prolonged standing and/or dangling of legs. When seated, feet should be elevated at chest level. Frequent ambulation is encouraged. Diet: Patient encouraged to increase protein intake while taking caution to avoid high carbohydrate and/or sugar intake. Encouraged weight loss. Labs/cultures/imaging: Wound Culture of left allen ulcer showed pseudomonas and MRSA. Ciprofloxacin prescribed. Venous ultrasound showed incompetence of veins of left lower extremity and vascular performed an ablation on 07/27/2024. Culture showed E. faecalis, anaerobic bacteria and Pseudomonas advised to restart Ciprofloxacin and Flagyl was prescribed for Anaerobic bacteria. 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 She has been referred to infectious disease and they will see her 09/27/2024. We are going to try treating her with Bactrim DS until she sees Dr. Johnson. She is tolerating this. Completed Bactrim DS. Completed IV Gentamicin. Wound culture taken was positive for multiple bacteria. Anaerobic culture is still pending. She will complete treatment on Levofloxacin and Keflex based on sensitivities. Repeat venous testing did not show thrombosis or failure of previous venous ablation. Encouraged her to get her CPAP mask to improve DOLORES and pulmonary HTN treatment compliance which is adding to her decompensated lymphedema. Follow-up: Will have her follow up in 1 week. Return sooner or report to the emergency room should symptoms worsen, or new symptoms arise. Note: webtide speech recognition train control electronic technician software was used to create portions of this document. Sound-alike and misspelled words, as well as other train control electronic technician errors may be contained in the documentation. 01/12/251 <Electronically signed by Sneha Rosa DO> Cosigner Signature (if applicable): CC: ~ Signed [facility] Work Phone: [phone] Progress note Author Sneha Rosa [facility] Note Date/Time January 05, 2025 2:30 pm [facility] [address] [place] [address] Progress Note - Wound Care 01/05/25 1332 MR#: [id number] Acct: [id number] Name: LIZ WADSWORTH Rep #:[id number] : 1950 74 From: Sneha Rosa DO PCP: Dr. Luis Cortés MD Status:R EG RCR Location: History of Present Illness Date of Service: 01/05/25 Chief Complaint: ulcers b/l LE, bilateral lower extremity swelling History of Wound: Liz is a pleasant 74 yo woman that presents to the wound center for bilateral lower extremity edema and blisters and drainage of her bilateral lower extremities. She has had increased edema the last 2 weeks and her legs started seeping a few days ago. She has been wearing her tubigrip compression and had been using the lymphedema pumps until they started seeping fluid. She tries to elevate her legs when she is sitting but is not always consistent with doing this. She has been wrapping her leg with gauze when it is seeping but otherwise has not been doing any regular dressings. Patient has been treated at the wound center in the past for similar wounds, most recently October 2023. She has also been seen in the vascular surgery clinic where she was evaluated her for BLE DVT and venous insufficiency. Patienthas a h/o provoked DVTs and has been off treatment with Eliquis since June 01/2023. GSV ablation has been done to her right lower leg. She has received lymphedema pumps that were ordered during her last treatment course and has beenusing these. Last venous study was 03/2022. Last A1C 01/2023 was 6.4%. Last TSH - 01/2022 Patient's medical history is also significant for CHF, COPD, T2DM, lymphedema. She has a CPAP but has not been using this due to needing a new mask. She statesthat a prescription was to be sent and she never received the mask. Her current mask has a hole in it. Subjective Subjective Liz returns today for treatment of edema/ulcers to bilateral lower legs. She underwent venous ablation of left lower leg on 07/27/2024 but has not had resolution of drainage from the left lower leg since then with intermittent ulcer development. She has been using super absorbers and UNNA to both legs for the last week and has continued to have drainage from both lower legs. Left lateral LE still is draining again. She has been more compliant with water pill and use of lymphedema pumps this week but has had increased edema and has skin breakdown with beginnings of ulcerations bilateral lower legs. I suspect noncompliance with compression or another underlying issue such as exacerbation of heart failure or diuretic failure. Objective Data Objective Data Vital Signs: Vital Signs Temp Pulse Resp BP O2 Del Method FiO2 96.2 F L 66 18 129/66 H Room Air 91 01/05/25 10:58 01/05/25 10:58 01/05/25 10:58 01/05/25 10:58 01/05/25 10:58 12/29/24 10:00 Oxygen Delivery Method Room Air Lab / Micro Data Micro: Microbiology 12/29/24 11:07 Wound - Leg, Left Gram Stain - Final 12/29/24 11:07 Wound - Leg, Left Wound Culture - Final Proteus mirabilis Citrobacter braakii Streptococcus group C Enterococcus faecalis Pseudomonas aeruginosa Klebsiella pneumoniae sp pneum 12/29/24 11:07 Wound - Leg, Left Anaerobic Culture - Preliminary Checking for anaerobes, further studies to follow. Physical Exam Const alert, oriented x3, no apparent distress and healthy appearing General Appearance: cooperative; Negative for combative or lethargic Orientation / Consciousness: awake Exam Limitations: no limitations Nutritional Appearance: obese HEENT normocephalic and head/scalp atraumatic Eyes EOMs intact bilaterally General Eye: normal appearance of both eyes Neck full ROM General: trachea midline Lymph Lymphatic: lymphedema severe and pitting Resp normal respiratory effort and no use of accessory muscles Effort and Inspection: Negative for labored, stridor or audible wheezes Cardio regular rate and regular rhythm Back/Spine Cervical Spine: cervical ROM normal Extremity full ROM, normal capillary refill and no clubbing, cyanosis or edema General Extremity: edema bilateral lower extremity Details: severe (with skin changes associated with lymphedema, thickened nodular appearance from mid allen to ankle) Skin General Skin Exam: erythema, venous stasis and dermatitis Wounds: wounds noted Wound Narrative: as in clinical panel, increased erythema and light serous drainage from bilateral lower legs with small ulcers on lateral aspects bilaterally, nodular appearance of skin associated with lymphedema Neuro oriented x3, CN's II-XII intact bilaterally, no focal motor deficits and no sensory deficits noted Psych thought process normal, cooperative, affect normal, speech normal and activity/motor behavior normal Debridement Note Debridement Note Wound debrided: left lateral LE Laterality: Left No debridement was completed: No debridement was completed today (no slough present) Post-Debridement Measurements and Additional Note: Post-Debridement Measurements/Treatment - Nurse 1 - General Ulcer Assessment Start: 12/21/24 13:51 Freq: Status: Active Protocol: KELSEY Activity Type Activity Date Activity User E-sign Co-sign Detail Recorded Client Recorded Date Recorded By Document 12/21/24 13:54 KW [id number] 12/21/24 13:55 KW Edit Result 12/21/24 13:54 KW (1) [id number] 12/21/24 14:04 KW Document 12/29/24 10:00 KW [id number] 12/29/24 10:14 KW Document 01/05/25 10:58 KW [id number] 01/05/25 11:15 KW (1) Temperature (97.8 F-99.1 F) => 98.4 F Pulse Rate (60-100) => 95 Blood Pressure (90/60-120/80) => 153/72 H Blood Pressure Mean (mm Hg) => 99 12/21/24 12/29/24 01/05/25 13:54 10:00 10:58 - Today's Visit Information Type of service Nurse-only Follow-up Visit Follow-up Visit Visit (Physician/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 (Physician/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 ) ) Arrival Mode Ambulatory, Ambulatory, Ambulatory, Walker Walker Walker Accompanied by Patient Identification Verified (Name & Yes Yes Yes ) Vital Signs Temperature (97.8 F-99.1 F) 98.4 F 96.5 F L 96.2 F L Temperature Source Temporal Temporal Temporal Pulse Rate (60-100) 95 66 66 Pulse Location Monitor Monitor Monitor Respiratory Rate (12-18) 18 18 18 Respiratory rate source Observation Observation Observation Oxygen Delivery Method Room Air Room Air Room Air FIO2 % 91 Blood Pressure (90/60-120/80) 153/72 H 135/60 H 129/66 H Blood Pressure Mean (mm Hg) 99 85 87 Source Monitor Monitor Monitor Position Semi-Fowlers Semi-Fowlers Semi-Fowlers Blood Pressure Location Left Arm Right Forearm Right Forearm History Since Last Visit- (Skip if this is Patient's initial visit) Have you changed medications since your No No No last visit? Any new allergies or adverse reactions No No No Had a fall/change in ADL's that may No No No increase risk of falls Signs or symptoms of abuse and/or No No No neglect since last visit Have you been in the hospital since your No No No last visit? Has dressing in place as prescribed Yes Yes Yes Has compression in place as prescribed Yes Yes Yes Has offloadiing in place as prescribed N/A N/A N/A Experienced any changes in pain level or No No No management Left Footwear Regular Shoe Regular Shoe Regular Shoe Right Footwear Regular Shoe Regular Shoe Regular Shoe Pain Scale: 0-10 Numeric Is Patient Pain Free? Yes Yes Yes WC - Nurse 1 - General Ulcer Measurement Start: 12/21/24 13:51 Freq: Status: Active Protocol: Activity Type Activity Date Activity User E-sign Co-sign Detail Recorded Client Recorded Date Recorded By Document 12/21/24 14:04 KW [id number] 12/21/24 14:06 KW Document 12/29/24 10:00 KW [id number] 12/29/24 10:14 KW Document 01/05/25 10:58 KW [id number] 01/05/25 11:15 KW 12/21/24 12/29/24 01/05/25 14:04 10:00 10:58 Wound Center Nurse 1 lle -Current Size (cm) - Length 0.1 -Current Size (cm) - Width 0.1 -Current Size (cm) - Depth 0 -Total Square Cm 0.01 -Date of Last Picture (Recall this 01/05/25 field) -Exudate Amt Large -Exudate Type Serosanguineous -Wound Margin Indistinct, Non -Visible -Granulation Amt Large (67-100%) -Granulation Quality [place] -Texture (Adrianna-wound Skin Appearance) Assessed Assessed -Moisture (Adrianna-wound Skin Appearance) Assessed Assessed -Color (Adrianna-wound Skin Appearance) Assessed, Assessed, Erythema Erythema -Temperature (Adrianna-wound Skin No Abnormality No Abnormality Appearance) (Pt Warm) (Pt Warm) -Tenderness on Palpation (Adrianna-wound No No Skin Appearance) -Ulcer Cleansing Soap and Water Soap and Water -Foul Odor after Cleansing No No -Anesthetic Used 5% Lidocaine Gel -Wound Comment(s) not measured during nurse 1 7. RLE lateral -Current Size (cm) - Length 0.1 -Current Size (cm) - Width 0.1 -Current Size (cm) - Depth 0 -Total Square Cm 0.01 -Date of Last Picture (Recall this 01/05/25 field) -Exudate Amt Large -Exudate Type Serosanguineous -Wound Margin Indistinct, Non -Visible -Granulation Amt Large (67-100%) -Granulation Quality [place] -Texture (Adrianna-wound Skin Appearance) Assessed -Moisture (Adrianna-wound Skin Appearance) Assessed -Color (Adrianna-wound Skin Appearance) Assessed, Erythema -Temperature (Adrianna-wound Skin No Abnormality Appearance) (Pt Warm) -Tenderness on Palpation (Adrianna-wound No Skin Appearance) -Ulcer Cleansing Soap and Water -Foul Odor after Cleansing No -Anesthetic Used 5% Lidocaine Gel -Wound Comment(s) not measured during nurse 1 Right Calf (cm) 49 49.1 50 Right Ankle (cm) 28.5 29.1 30.5 Left Calf (cm) 54 51 Left Ankle (cm) 29.5 47.5 30.5 Left Foot (cm) 29.3 WC - Nurse 2 - General Ulcer CM Notes Start: 12/21/24 13:51 Freq: Status: Active Protocol: Activity Type Activity Date Activity User E-sign Co-sign Detail Recorded Client Recorded Date Recorded By Document 12/29/24 10:56 [id number] 12/29/24 11:09 Document 01/05/25 12:02 [id number] 01/05/25 12:04 12/29/24 01/05/25 10:56 12:02 Wound Center Nurse 2 lle -Time 11:04 12:02 -Correct Patient Yes Yes -Correct Side, Site, Position Yes Yes -Correct Procedure Yes -Procedure Performed Yes No -Type of Procedure Debridement -Clinical Debridement Epidermis / Dermis -Tissue Removed Epidermis -Post Debridement (cm) - Length 11.0 7.5 -Post Debridement (cm) - Width 8.0 5.5 -Post Debridement (cm) - Depth 0.1 0.1 -Total Square (Post) (cm) 88.00 41.25 -Area of Debridement (cm) - Length 11.0 7.5 -Area of Debridement (cm) - Width 8.0 5.5 -Total Square (Area) (cm) 88.00 41.25 -Tunneling No -Undermining/Tunneling No -Circular Undermining No -Wound/Ulcer Outcome Not Healed Not Healed -Ulcer Cleansing Rinsed/ Irrigated with Saline -Foul Odor after Cleansing No -Bioengineered Tissue No -Bleeding Controlled with NA -Treatment Response Procedure Tolerated Well -Offloading No -Debridement - Open, 1st 20sq cm No 7. RLE lateral -Time 11:08 12:03 -Correct Patient Yes Yes -Correct Side, Site, Position Yes Yes -Correct Procedure Yes -Procedure Performed Yes No -Type of Procedure Debridement -Clinical Debridement Epidermis / Dermis -Tissue Removed Epidermis -Post Debridement (cm) - Length 5.5 3.5 -Post Debridement (cm) - Width 6.5 2.0 -Post Debridement (cm) - Depth 0.1 0.1 -Total Square (Post) (cm) 35.75 7.00 -Area of Debridement (cm) - Length 5.5 3.5 -Area of Debridement (cm) - Width 6.5 2.0 -Total Square (Area) (cm) 35.75 7.00 -Tunneling No -Undermining/Tunneling No -Circular Undermining No -Wound/Ulcer Outcome Not Healed Not Healed -Ulcer Cleansing Rinsed/ Irrigated with Saline -Foul Odor after Cleansing No -Bioengineered Tissue No -Bleeding Controlled with NA -Treatment Response Procedure Tolerated Well -Offloading No -Debridement - Open, 1st 20sq cm Yes -Debridement, Open, ea addt'l 20sq cm 6 or part thereof Pain Scale: 0-10 Numeric Is Patient Pain Free? Yes Yes WC - Nurse 3 - General Ulcer D/C NN Start: 12/21/24 13:51 Freq: Status: Active Protocol: Activity Type Activity Date Activity User E-sign Co-sign Detail Recorded Client Recorded Date Recorded By Document 12/21/24 13:55 KW [id number] 12/21/24 13:55 KW Edit Result 12/21/24 13:55 KW (1) [id number] 12/21/24 14:06 KW Document 12/29/24 11:16 BMF [id number] 12/29/24 11:18 BMF Document 01/05/25 12:11 KW [id number] 01/05/25 12:12 KW (1) lle - Primary Dressing Applied Optilok 5x5 1/2 => Optilok 6.5x10 - Optilok 5x5 1/2 1 => - Optilok 6.5x10 => 1 12/21/24 12/29/24 01/05/25 13:55 11:16 12:11 Wound Care Center Nurse 3 lle -Ulcer Cleansing Soap and Water Soap and Water -Primary Dressing Applied Optilok 6.5x10 Aquacel Extra, Aquacel AG 4x4, Optilok 5x5 1/2 Optilok 6.5x10 -Other Dressing DRSGS PER RB RN -Primary Dressing Covered/Secured with Dry Gauze Dry Gauze & Roll Gauze -Aquacel Extra 1 -Aquacel AG 4x4 1 -Optilok 5x5 1/2 1 -Optilok 6.5x10 1 1 7. RLE lateral -Ulcer Cleansing Soap and Water -Primary Dressing Applied Aquacel Extra, Aquacel AG 4x4, Optilok 5x5 1/2 Optilok 5x5 1/2 -Other Dressing DRSG PER RB RN -Primary Dressing Covered/Secured with Dry Gauze & Roll Gauze, Secured with Tape -Aquacel Extra 0 -Aquacel AG 4x4 1 -Optilok 5x5 1/2 1 1 BLE -Multi-Layered Wrap Application Unna Boot - Unna Boot - Bilateral Bilateral -Compression Wrap Katelynn Wrap -Other APPLIED PER RB 4 in and 6 in RN -Unna- Bilat (Qty applied) 1 1 Treatment Response Procedure Tolerated Well Pain Scale: 0-10 Numeric Is Patient Pain Free? Yes Yes Yes WC - Visit Discharge Discharge Condition Stable Stable Stable Ambulatory Status Ambulatory, Ambulatory, Ambulatory, Walker Walker Walker Transportation Private Auto Private Auto Private Auto Medication Reconcilliation completed & No No provided to patient/care provider Clinical Summary of Care Provided Yes Yes Additional Wound Wound debrided: right lateral LE Laterality: Right Operative Diagnosis: No debridemement- no slough present Assessment/Plan Assessment/Plan (1) Non-pressure chronic ulcer left lower leg, limited to breakdown skin: CODE(S): L97.921 - Non-pressure chronic ulcer of unspecified part of left lower leg limited to breakdown of skin (2) Venous insufficiency: CODE(S): I87.2 - Venous insufficiency (chronic) (peripheral) (3) Edema of both lower extremities: CODE(S): R60.0 - Localized edema (4) Lymphedema: CODE(S): I89.0 - Lymphedema, not elsewhere classified (5) Essential hypertension: CODE(S): I10 - Essential (primary) hypertension (6) Morbid obesity with BMI of 45.0-49.9, adult: CODE(S): E66.01 - Morbid (severe) obesity due to excess calories; Z68.42 -Body mass index [BMI] 45.0-49.9, adult (7) Debility: CODE(S): R53.81 - Other malaise (8) Osteoarthritis: CODE(S): M19.90 - Unspecified osteoarthritis, unspecified site QUALIFIERS: Osteoarthritis location: multiple joints Osteoarthritis type: primary Qualified Code(s): M15.9 - Polyosteoarthritis, unspecified (9) COPD (chronic obstructive pulmonary disease): CODE(S): J44.9 - Chronic obstructive pulmonary disease, unspecified QUALIFIERS: COPD type: unspecified COPD Qualified Code(s): J44.9 - Chronic obstructive pulmonary disease, unspecified (10) Chronic hypoxemic respiratory failure: CODE(S): J96.11 - Chronic respiratory failure with hypoxia (11) Pulmonary hypertension: CODE(S): I27.20 - Pulmonary hypertension, unspecified (12) Hypothyroidism: CODE(S): E03.9 - Hypothyroidism, unspecified QUALIFIERS: Hypothyroidism type: unspecified Qualified Code(s): E03.9 - Hypothyroidism, unspecified (13) Type 2 diabetes mellitus: CODE(S): E11.9 - Type 2 diabetes mellitus without complications QUALIFIERS: Diabetes mellitus complication status: with other specified complication Diabetes mellitus oil heaterman insulin use: without residential use Qualified Code(s): E11.69 - Type 2 diabetes mellitus with other specified complication (14) DOLORES (obstructive sleep apnea): CODE(S): G47.33 - Obstructive sleep apnea (adult) (pediatric) (15) Cellulitis of left lower extremity: CODE(S): L03.116 - Cellulitis of left lower limb (16) Venous ulcer with fat layer exposed: CODE(S): I83.009 - Varicose veins of unspecified lower extremity with ulcer of unspecified site; L97.902 - Non-pressure chronic ulcer of unspecified part of unspecified lower leg with fat layer exposed (17) Venous stasis ulcer of right calf with fat layer exposed: CODE(S): I83.012 - Varicose veins of right lower extremity with ulcer of calf; L97.212 - Non-pressure chronic ulcer of right calf with fat layer exposed QUALIFIERS: Varicose vein presence: with varicose veins Qualified Code(s): I83.012 - Varicose veins of right lower extremity with ulcer of calf; L97.212 - Non- pressure chronic ulcer of right calf with fat layer exposed (18) Venous stasis ulcer of left calf with fat layer exposed: CODE(S): I83.022 - Varicose veins of left lower extremity with ulcer of calf; L97.222 - Non-pressure chronic ulcer of left calf with fat layer exposed QUALIFIERS: Varicose vein presence: with varicose veins Qualified Code(s): I83.022 - Varicose veins of left lower extremity with ulcer of calf; L97.222 - Non- pressure chronic ulcer of left calf with fat layer exposed PLAN: Plan Evaluation and debridement performed today in clinic as annotated above. At home wound-care instructions: Will apply Aquacel extra and superabsorber to left lateral leg and to right lateral leg and wrap with Kerlix and secure with KATELYNN bandage and change daily. She was instructed to keep dressings clean and dry. Will have her use lymphedema pumps for 60 minutes 2-3 times daily. She has been noncompliant with pumps and was encouraged to increase frequency. Also, encouraged to take diuretic daily. Off-loading: The patient was instructed to avoid pressure and friction on the affected areas. Reposition every 2 hours at minimum. Avoid prolonged standing and/or dangling of legs. When seated, feet should be elevated at chest level. Frequent ambulation is encouraged. Diet: Patient encouraged to increase protein intake while taking caution to avoid high carbohydrate and/or sugar intake. Encouraged weight loss. Labs/cultures/imaging: Wound Culture of left allen ulcer showed pseudomonas and MRSA. Ciprofloxacin prescribed. Venous ultrasound showed incompetence of veins of left lower extremity and vascular performed an ablation on 07/27/2024. Culture showed E. faecalis, anaerobic bacteria and Pseudomonas advised to restart Ciprofloxacin and Flagyl was prescribed for Anaerobic bacteria. 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 She has been referred to infectious disease and they will see her 09/27/2024. We are going to try treating her with Bactrim DS until she sees Dr. Johnson. She is tolerating this. Completed Bactrim DS. Completed IV Gentamicin. Wound culture taken was positive for multiple bacteria. Anaerobic culture is still pending. Will start her on Levofloxacin and Keflex based on sensitivities. Repeat venous testing did not show thrombosis or failure of previous venous ablation. Encouraged her to get her CPAP mask to improve DOLORES and pulmonary HTN treatment compliance which is adding to her decompensated lymphedema. Follow-up: Will have her follow up in 1 week. Return sooner or report to the emergency room should symptoms worsen, or new symptoms arise. Note: webtide speech recognition train control electronic technician software was used to create portions of this document. Sound-alike and misspelled words, as well as other train control electronic technician errors may be contained in the documentation. 01/05/25 1430 <Electronically signed by Sneha Rosa DO> Cosigner Signature (if applicable): CC: ~ Signed [facility] Work Phone: [phone] [phone] Progress note Author Sneha Rosa [facility] Note Date/Time December 29, 2024 3:15 pm [facility] [address] [place] [address] Progress Note - Wound Care 12/29/24 1508 MR#: [id number] Acct: [id number] Name: LIZ WADSWORTH Rep #:[id number] : 1950 74 From: Sneha Rosa DO PCP: Dr. Luis Cortés MD Status:R EG RCR Location: WC History of Present Illness Date of Service: 12/29/24 Chief Complaint: ulcers b/l LE, bilateral lower extremity swelling History of Wound: Liz is a pleasant 74 yo woman that presents to the wound center for bilateral lower extremity edema and blisters and drainage of her bilateral lower extremities. She has had increased edema the last 2 weeks and her legs started seeping a few days ago. She has been wearing her tubigrip compression and had been using the lymphedema pumps until they started seeping fluid. She tries to elevate her legs when she is sitting but is not always consistent with doing this. She has been wrapping her leg with gauze when it is seeping but otherwise has not been doing any regular dressings. Patient has been treated at the wound center in the past for similar wounds, most recently October 2023. She has also been seen in the vascular surgery clinic where she was evaluated her for BLE DVT and venous insufficiency. Patienthas a h/o provoked DVTs and has been off treatment with Eliquis since June 01/2023. GSV ablation has been done to her right lower leg. She has received lymphedema pumps that were ordered during her last treatment course and has beenusing these. Last venous study was 03/2022. Last A1C 01/2023 was 6.4%. Last TSH - 01/2022 Patient's medical history is also significant for CHF, COPD, T2DM, lymphedema. She has a CPAP but has not been using this due to needing a new mask. She statesthat a prescription was to be sent and she never received the mask. Her current mask has a hole in it. Subjective Subjective Liz returns today for treatment of edema/ulcers to bilateral lower legs. She underwent venous ablation of left lower leg on 07/27/2024 but has not had resolution of drainage from the left lower leg since then with intermittent ulcer development. She has been using super absorbers and UNNA to both legs for the last week and has continued to have drainage from both lower legs. Left lateral LE still is draining again. She has been more compliant with water pill and use of lymphedema pumps this week but has had increased edema and has skin breakdown with beginnings of ulcerations bilateral lower legs. I suspect noncompliance with compression or another underlying issue such as exacerbation of heart failure or diuretic failure. Objective Data Objective Data Vital Signs: Vital Signs Temp Pulse Resp BP O2 Del Method FiO2 96.5 F L 66 18 135/60 H Room Air 91 12/29/24 10:12/29/24 10:12/29/24 10:12/29/24 10:12/29/24 10:12/29/24 10:00 Oxygen Delivery Method Room Air Physical Exam Const alert, oriented x3, no apparent distress and healthy appearing General Appearance: cooperative; Negative for combative or lethargic Orientation / Consciousness: awake Exam Limitations: no limitations Nutritional Appearance: obese HEENT normocephalic and head/scalp atraumatic Eyes EOMs intact bilaterally General Eye: normal appearance of both eyes Neck full ROM General: trachea midline Lymph Lymphatic: lymphedema severe and pitting Resp normal respiratory effort and no use of accessory muscles Effort and Inspection: Negative for labored, stridor or audible wheezes Cardio regular rate and regular rhythm Back/Spine Cervical Spine: cervical ROM normal Extremity full ROM, normal capillary refill and no clubbing, cyanosis or edema General Extremity: edema bilateral lower extremity Details: severe (with skin changes associated with lymphedema, thickened nodular appearance from mid allen to ankle) Skin General Skin Exam: erythema, venous stasis and dermatitis Wounds: wounds noted Wound Narrative: as in clinical panel, stable erythema and light serous drainage from bilateral lower legs with small ulcers on lateral aspects bilaterally, nodular appearance of skin associated with lymphedema Neuro oriented x3, CN's II-XII intact bilaterally, no focal motor deficits and no sensory deficits noted Psych thought process normal, cooperative, affect normal, speech normal and activity/motor behavior normal Debridement Note Debridement Note Wound debrided: left lower leg Laterality: Left Type of Debridement: Selective debridement Anesthesia Used: 4% Lidocaine Solution Depth: Down to and including healthy tissue and in the subcutaneous layer Instrument Used: - (gauze) Tissue Removed: yellow slough, devitalized tissue Severity: Fat Layer Exposed Amount of bleeding with debridement: None Bleeding Controlled with: Pressure Patient tolerated procedure: Patient tolerated procedure well Post-Debridement Measurements and Additional Note: Post-Debridement Measurements/Treatment WC - Nurse 1 - General Ulcer Assessment Start: 12/21/24 13:51 Freq: Status: Active Protocol: [email or web address].[email or web address] Activity Type Activity Date Activity User E-sign Co-sign Detail Recorded Client Recorded Date Recorded By Document 12/21/24 13:54 KW [id number] 12/21/24 13:55 KW Edit Result 12/21/24 13:54 KW (1) [id number] 12/21/24 14:04 KW Document 12/29/24 10:00 KW [id number] 12/29/24 10:14 KW (1) Temperature (97.8 F-99.1 F) => 98.4 F Pulse Rate (60-100) => 95 Blood Pressure (90/60-120/80) => 153/72 H Blood Pressure Mean (mm Hg) => 99 12/21/24 12/29/24 13:54 10:00 - Today's Visit Information Type of service Nurse-only Follow-up Visit Visit (Physician/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 ) Arrival Mode Ambulatory, Ambulatory, Walker Walker Accompanied by Patient Identification Verified (Name & Yes Yes ) Vital Signs Temperature (97.8 F-99.1 F) 98.4 F 96.5 F L Temperature Source Temporal Temporal Pulse Rate (60-100) 95 66 Pulse Location Monitor Monitor Respiratory Rate (12-18) 18 18 Respiratory rate source Observation Observation Oxygen Delivery Method Room Air Room Air FIO2 % 91 Blood Pressure (90/60-120/80) 153/72 H 135/60 H Blood Pressure Mean (mm Hg) 99 85 Source Monitor Monitor Position Semi-Fowlers Semi-Fowlers Blood Pressure Location Left Arm Right Forearm History Since Last Visit- (Skip if this is Patient's initial visit) Have you changed medications since your No No last visit? Any new allergies or adverse reactions No No Had a fall/change in ADL's that may No No increase risk of falls Signs or symptoms of abuse and/or No No neglect since last visit Have you been in the hospital since your No No last visit? Has dressing in place as prescribed Yes Yes Has compression in place as prescribed Yes Yes Has offloadiing in place as prescribed N/A N/A Experienced any changes in pain level or No No management Left Footwear Regular Shoe Regular Shoe Right Footwear Regular Shoe Regular Shoe Pain Scale: 0-10 Numeric Is Patient Pain Free? Yes Yes - Nurse 1 - General Ulcer Measurement Start: 12/21/24 13:51 Freq: Status: Active Protocol: Activity Type Activity Date Activity User E-sign Co-sign Detail Recorded Client Recorded Date Recorded By Document 12/21/24 14:04 KW [id number] 12/21/24 14:06 KW Document 12/29/24 10:00 KW [id number] 12/29/24 10:14 KW 12/21/24 12/29/24 14:04 10:00 Wound Center Nurse 1 lle -Texture (Adrianna-wound Skin Appearance) Assessed -Moisture (Adrianna-wound Skin Appearance) Assessed -Color (Adrianna-wound Skin Appearance) Assessed, Erythema -Temperature (Adrianna-wound Skin No Abnormality Appearance) (Pt Warm) -Tenderness on Palpation (Adrianna-wound No Skin Appearance) -Ulcer Cleansing Soap and Water -Foul Odor after Cleansing No Right Calf (cm) 49 49.1 Right Ankle (cm) 28.5 29.1 Left Calf (cm) 54 Left Ankle (cm) 29.5 47.5 Left Foot (cm) 29.3 WC - Nurse 2 - General Ulcer CM Notes Start: 12/21/24 13:51 Freq: Status: Active Protocol: Activity Type Activity Date Activity User E-sign Co-sign Detail Recorded Client Recorded Date Recorded By Document 12/29/24 10:56 [id number] 12/29/24 11:09 12/29/24 10:56 Wound Center Nurse 2 lle -Time 11:04 -Correct Patient Yes -Correct Side, Site, Position Yes -Correct Procedure Yes -Procedure Performed Yes -Type of Procedure Debridement -Clinical Debridement Epidermis / Dermis -Tissue Removed Epidermis -Post Debridement (cm) - Length 11.0 -Post Debridement (cm) - Width 8.0 -Post Debridement (cm) - Depth 0.1 -Total Square (Post) (cm) 88.00 -Area of Debridement (cm) - Length 11.0 -Area of Debridement (cm) - Width 8.0 -Total Square (Area) (cm) 88.00 -Tunneling No -Undermining/Tunneling No -Circular Undermining No -Wound/Ulcer Outcome Not Healed -Ulcer Cleansing Rinsed/ Irrigated with Saline -Foul Odor after Cleansing No -Bioengineered Tissue No -Bleeding Controlled with NA -Treatment Response Procedure Tolerated Well -Offloading No -Debridement - Open, 1st 20sq cm No 7. RLE lateral -Time 11:08 -Correct Patient Yes -Correct Side, Site, Position Yes -Correct Procedure Yes -Procedure Performed Yes -Type of Procedure Debridement -Clinical Debridement Epidermis / Dermis -Tissue Removed Epidermis -Post Debridement (cm) - Length 5.5 -Post Debridement (cm) - Width 6.5 -Post Debridement (cm) - Depth 0.1 -Total Square (Post) (cm) 35.75 -Area of Debridement (cm) - Length 5.5 -Area of Debridement (cm) - Width 6.5 -Total Square (Area) (cm) 35.75 -Tunneling No -Undermining/Tunneling No -Circular Undermining No -Wound/Ulcer Outcome Not Healed -Ulcer Cleansing Rinsed/ Irrigated with Saline -Foul Odor after Cleansing No -Bioengineered Tissue No -Bleeding Controlled with NA -Treatment Response Procedure Tolerated Well -Offloading No -Debridement - Open, 1st 20sq cm Yes -Debridement, Open, ea addt'l 20sq cm 6 or part thereof Pain Scale: 0-10 Numeric Is Patient Pain Free? Yes - Nurse 3 - General Ulcer D/C NN Start: 12/21/24 13:51 Freq: Status: Active Protocol: Activity Type Activity Date Activity User E-sign Co-sign Detail Recorded Client Recorded Date Recorded By Document 12/21/24 13:55 KW [id number] 12/21/24 13:55 KW Edit Result 12/21/24 13:55 KW (1) [id number] 12/21/24 14:06 KW Document 12/29/24 11:16 BMF [id number] 12/29/24 11:18 BMF (1) lle - Primary Dressing Applied Optilok 5x5 1/2 => Optilok 6.5x10 - Optilok 5x5 1/2 1 => - Optilok 6.5x10 => 1 12/21/24 12/29/24 13:55 11:16 Wound Care Center Nurse 3 lle -Ulcer Cleansing Soap and Water Soap and Water -Primary Dressing Applied Optilok 6.5x10 Aquacel Extra, Optilok 5x5 1/2 -Other Dressing DRSGS PER RB RN -Primary Dressing Covered/Secured with Dry Gauze -Aquacel Extra 1 -Optilok 5x5 1/2 1 -Optilok 6.5x10 1 7. RLE lateral -Ulcer Cleansing Soap and Water -Primary Dressing Applied Aquacel Extra, Optilok 5x5 1/2 -Other Dressing DRSG PER RB RN -Aquacel Extra 0 -Optilok 5x5 1/2 1 BLE -Multi-Layered Wrap Application Unna Boot - Unna Boot - Bilateral Bilateral -Other APPLIED PER RB RN -Unna- Bilat (Qty applied) 1 1 Treatment Response Procedure Tolerated Well Pain Scale: 0-10 Numeric Is Patient Pain Free? Yes Yes WC - Visit Discharge Discharge Condition Stable Stable Ambulatory Status Ambulatory, Ambulatory, Walker Walker Transportation Private Auto Private Auto Medication Reconcilliation completed & No provided to patient/care provider Clinical Summary of Care Provided Yes Additional Wound Wound debrided: right lateral lower leg Laterality: Right Type of Debridement: Selective debridement Anesthesia Used: 4% Lidocaine Solution Depth: Down to and including healthy tissue and in the subcutaneous layer Percentage of wound debrided: 100 Instrument Used: - (gauze) Tissue Removed: Yellow slough, devitalized tissue Severity: Fat Layer Exposed Amount of bleeding with debridement: None Patient tolerated procedure: Patient tolerated procedure well Assessment/Plan Assessment/Plan (1) Non-pressure chronic ulcer left lower leg, limited to breakdown skin: CODE(S): L97.921 - Non-pressure chronic ulcer of unspecified part of left lower leg limited to breakdown of skin (2) Venous insufficiency: CODE(S): I87.2 - Venous insufficiency (chronic) (peripheral) (3) Edema of both lower extremities: CODE(S): R60.0 - Localized edema (4) Lymphedema: CODE(S): I89.0 - Lymphedema, not elsewhere classified (5) Essential hypertension: CODE(S): I10 - Essential (primary) hypertension (6) Morbid obesity with BMI of 45.0-49.9, adult: CODE(S): E66.01 - Morbid (severe) obesity due to excess calories; Z68.42 -Body mass index [BMI] 45.0-49.9, adult (7) Debility: CODE(S): R53.81 - Other malaise (8) Osteoarthritis: CODE(S): M19.90 - Unspecified osteoarthritis, unspecified site QUALIFIERS: Osteoarthritis location: multiple joints Osteoarthritis type: primary Qualified Code(s): M15.9 - Polyosteoarthritis, unspecified (9) COPD (chronic obstructive pulmonary disease): CODE(S): J44.9 - Chronic obstructive pulmonary disease, unspecified QUALIFIERS: COPD type: unspecified COPD Qualified Code(s): J44.9 - Chronic obstructive pulmonary disease, unspecified (10) Chronic hypoxemic respiratory failure: CODE(S): J96.11 - Chronic respiratory failure with hypoxia (11) Pulmonary hypertension: CODE(S): I27.20 - Pulmonary hypertension, unspecified (12) Hypothyroidism: CODE(S): E03.9 - Hypothyroidism, unspecified QUALIFIERS: Hypothyroidism type: unspecified Qualified Code(s): E03.9 - Hypothyroidism, unspecified (13) Type 2 diabetes mellitus: CODE(S): E11.9 - Type 2 diabetes mellitus without complications QUALIFIERS: Diabetes mellitus residential insulin use: without residential use Diabetes mellitus complication status: with other specified complication Qualified Code(s): E11.69 - Type 2 diabetes mellitus with other specified complication (14) DOLORES (obstructive sleep apnea): CODE(S): G47.33 - Obstructive sleep apnea (adult) (pediatric) (15) Cellulitis of left lower extremity: CODE(S): L03.116 - Cellulitis of left lower limb (16) Venous ulcer with fat layer exposed: CODE(S): I83.009 - Varicose veins of unspecified lower extremity with ulcer of unspecified site; L97.902 - Non-pressure chronic ulcer of unspecified part of unspecified lower leg with fat layer exposed (17) Venous stasis ulcer of right calf with fat layer exposed: CODE(S): I83.012 - Varicose veins of right lower extremity with ulcer of calf; L97.212 - Non-pressure chronic ulcer of right calf with fat layer exposed QUALIFIERS: Varicose vein presence: with varicose veins Qualified Code(s): I83.012 - Varicose veins of right lower extremity with ulcer of calf; L97.212 - Non- pressure chronic ulcer of right calf with fat layer exposed (18) Venous stasis ulcer of left calf with fat layer exposed: CODE(S): I83.022 - Varicose veins of left lower extremity with ulcer of calf; L97.222 - Non-pressure chronic ulcer of left calf with fat layer exposed QUALIFIERS: Varicose vein presence: with varicose veins Qualified Code(s): I83.022 - Varicose veins of left lower extremity with ulcer of calf; L97.222 - Non- pressure chronic ulcer of left calf with fat layer exposed PLAN: Plan Evaluation and debridement performed today in clinic as annotated above. At home wound-care instructions: Will apply UNNA boots to b/l LE and apply Aquacel extra and superabsorber to left lateral leg and to right lateral leg. She was instructed to keep dressings clean and dry. Will have her use lymphedema pumps for 60 minutes 2-3 times daily. She has been noncompliant with pumps and was encouraged to increase frequency. Also, encouraged to take diuretic daily. Off-loading: The patient was instructed to avoid pressure and friction on the affected areas. Reposition every 2 hours at minimum. Avoid prolonged standing and/or dangling of legs. When seated, feet should be elevated at chest level. Frequent ambulation is encouraged. Diet: Patient encouraged to increase protein intake while taking caution to avoid high carbohydrate and/or sugar intake. Encouraged weight loss. Labs/cultures/imaging: Wound Culture of left allen ulcer showed pseudomonas and MRSA. Ciprofloxacin prescribed. Venous ultrasound showed incompetence of veins of left lower extremity and vascular performed an ablation on 07/27/2024. Culture showed E. faecalis, anaerobic bacteria and Pseudomonas advised to restart Ciprofloxacin and Flagyl was prescribed for Anaerobic bacteria. 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 She has been referred to infectious disease and they will see her 09/27/2024. We are going to try treating her with Bactrim DS until she sees Dr. Johnson. She is tolerating this. Completed Bactrim DS. Completed IV Gentamicin. Wound culture taken today to evaluate for cellulitis as left leg is more warm and erythematous. Repeat venous testing did not show thrombosis or failure of previous venous ablation. Encouraged her to get her CPAP mask to improve DOLORES and pulmonary HTN treatment compliance which is adding to her decompensated lymphedema. Follow-up: Will have her follow up in 1 week. Return sooner or report to the emergency room should symptoms worsen, or new symptoms arise. Note: webtide speech recognition train control electronic technician software was used to create portions of this document. Sound-alike and misspelled words, as well as other train control electronic technician errors may be contained in the documentation. 12/29/24 1515 <Electronically signed by Sneha Rosa DO> Cosigner Signature (if applicable): CC: ~ Signed [facility] Work Phone: [phone] 172-681806-27-2025 Progress note Author Sneha Rosa [facility] Note Date/Time December 15, 2024 2:09 pm [facility] [address] [place] [address] Progress Note - Wound Care 12/15/24 1404 MR#: [id number] Acct: [id number] Name: LIZ WADSWORTH Rep #:[id number] : 1950 74 From: Sneha Rosa DO PCP: Dr. Luis Cortés MD Status:R EG RCR Location: History of Present Illness Date of Service: 12/15/24 Chief Complaint: ulcers b/l LE, bilateral lower extremity swelling History of Wound: Liz is a pleasant 74 yo woman that presents to the wound center for bilateral lower extremity edema and blisters and drainage of her bilateral lower extremities. She has had increased edema the last 2 weeks and her legs started seeping a few days ago. She has been wearing her tubigrip compression and had been using the lymphedema pumps until they started seeping fluid. She tries to elevate her legs when she is sitting but is not always consistent with doing this. She has been wrapping her leg with gauze when it is seeping but otherwise has not been doing any regular dressings. Patient has been treated at the wound center in the past for similar wounds, most recently October 2023. She has also been seen in the vascular surgery clinic where she was evaluated her for BLE DVT and venous insufficiency. Patienthas a h/o provoked DVTs and has been off treatment with Eliquis since June 01/2023. GSV ablation has been done to her right lower leg. She has received lymphedema pumps that were ordered during her last treatment course and has beenusing these. Last venous study was 03/2022. Last A1C 01/2023 was 6.4%. Last TSH - 01/2022 Patient's medical history is also significant for CHF, COPD, T2DM, lymphedema. She has a CPAP but has not been using this due to needing a new mask. She statesthat a prescription was to be sent and she never received the mask. Her current mask has a hole in it. Subjective Subjective Liz returns today for treatment of edema/ulcers to bilateral lower legs. She underwent venous ablation of left lower leg on 07/27/2024 but has not had resolution of drainage from the left lower leg since then with intermittent ulcer development. She has been using super absorbers and Kerlix to both legs for the last week and has continued to have drainage from both lower legs. Left lateral LE still is draining but less after IV antibiotic. She has been more compliant with water pill and use of lymphedema pumps this week. Gentamicin IV course completed. Objective Data Objective Data Vital Signs: Vital Signs Temp Pulse Resp BP Pulse Ox O2 Del Method FiO2 97.7 F L 96 18 124/62 H 92 Room Air 96 12/15/24 10:38 12/15/24 10:38 12/15/24 10:38 12/15/24 10:38 11/19/24 00:36 12/15/24 10:38 12/15/24 10:38 Oxygen Delivery Method Room Air Weight: 140.16 kg Body Mass Index (BMI) 49.8 Physical Exam Const alert, oriented x3, no apparent distress and healthy appearing General Appearance: cooperative; Negative for combative or lethargic Orientation / Consciousness: awake Exam Limitations: no limitations Nutritional Appearance: obese HEENT normocephalic and head/scalp atraumatic Eyes EOMs intact bilaterally General Eye: normal appearance of both eyes Neck full ROM General: trachea midline Lymph Lymphatic: lymphedema severe and pitting Resp normal respiratory effort and no use of accessory muscles Effort and Inspection: Negative for labored, stridor or audible wheezes Cardio regular rate and regular rhythm Back/Spine Cervical Spine: cervical ROM normal Extremity full ROM, normal capillary refill and no clubbing, cyanosis or edema General Extremity: edema bilateral lower extremity Details: severe (with skin changes associated with lymphedema, thickened nodular appearance from mid allen to ankle) Skin General Skin Exam: erythema, venous stasis and dermatitis Wounds: wounds noted Wound Narrative: as in clinical panel, stable erythema and light serous drainage from bilateral lower legs with small ulcers on lateral aspects bilaterally, nodular appearance of skin associated with lymphedema Neuro oriented x3, CN's II-XII intact bilaterally, no focal motor deficits and no sensory deficits noted Psych thought process normal, cooperative, affect normal, speech normal and activity/motor behavior normal Debridement Note Debridement Note No debridement was completed: No debridement was completed today (no open ulcers- just general drainage) Post-Debridement Measurements and Additional Note: Post-Debridement Measurements/Treatment WC - Nurse 1 - General Ulcer Assessment Start: 11/24/24 10:57 Freq: Status: Active Protocol: [email or web address].[email or web address] Activity Type Activity Date Activity User E-sign Co-sign Detail Recorded Client Recorded Date Recorded By Document 11/24/24 10:57 RB [id number] 11/24/24 11:00 RB Document 12/15/24 10:38 RB [id number] 12/15/24 10:53 RB 11/24/24 12/15/24 10:57 10:38 WC - Today's Visit Information Type of service Follow-up Visit Follow-up Visit (Physician/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 (Physician/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 ) ) Arrival Mode Ambulatory, Ambulatory, Walker Walker Transfer Assistance None Manual Accompanied by Patient Identification Verified (Name & Yes Yes ) Patient Requires Transmission-Based No No Precautions Height and Weight Body Mass Index (BMI) 49.8 49.8 BMI Classification Obese Obese Vital Signs Temperature (97.8 F-99.1 F) 96.6 F L 97.7 F L Temperature Source Temporal Temporal Pulse Rate (60-100) 73 96 Pulse Location Monitor Monitor Respiratory Rate (12-18) 18 18 Respiratory rate source Observation Observation Oxygen Delivery Method Room Air FIO2 % 96 Blood Pressure (90/60-120/80) 147/79 H 124/62 H Blood Pressure Mean (mm Hg) 101 82 Source Monitor Monitor Position Semi-Fowlers Semi-Fowlers Blood Pressure Location Left Arm Left Arm History Since Last Visit- (Skip if this is Patient's initial visit) Have you changed medications since your No No last visit? Any new allergies or adverse reactions No No Had a fall/change in ADL's that may No No increase risk of falls Signs or symptoms of abuse and/or No No neglect since last visit Have you been in the hospital since your No No last visit? Has dressing in place as prescribed Yes Yes Has compression in place as prescribed Yes Yes Has offloadiing in place as prescribed N/A N/A Experienced any changes in pain level or No No management Left Footwear Regular Shoe Regular Shoe Right Footwear Regular Shoe Regular Shoe Pain Scale: 0-10 Numeric Is Patient Pain Free? Yes Yes 12/15/24 10:43 Wound Center by Zahira Nolasco pt states she has had c/o of dizziness for the past 2 weeks. Pt assisted into room per Wheelchair. pt states dizziness subsides when sitting still. Pt visiting ENT Doctor and Emergency Department this past week pt states Initialized on 12/15/24 10:43 - END OF NOTE WC - Nurse 1 - General Ulcer Measurement Start: 11/24/24 10:57 Freq: Status: Active Protocol: Activity Type Activity Date Activity User E-sign Co-sign Detail Recorded Client Recorded Date Recorded By Document 11/24/24 10:57 RB [id number] 11/24/24 11:00 RB Document 12/15/24 10:38 RB [id number] 12/15/24 10:53 RB 11/24/24 12/15/24 10:57 10:38 Wound Center Nurse 1 #9 Left Lateral Allen -Combined with other wound No -Current Size (cm) - Length 0.1 -Current Size (cm) - Width 0.1 -Current Size (cm) - Depth 0.1 -Total Square Cm 0.01 -Photo Taken Yes -Epithelialization Large 67-100% -Tunneling No -Undermining/Tunneling No -Circular Undermining No -Exudate Amt Small -Exudate Type Serosanguineous -Wound Margin Indistinct, Non -Visible -Granulation Amt Large (67-100%) -Granulation Quality [place] -Slough/Fibrin Yes -Necrosis Amt Small (1-33%) -Necrotic Tissue Type Adherent Slough -Structure Exposed N/A -Texture (Adrianna-wound Skin Appearance) Assessed -Moisture (Adrianna-wound Skin Appearance) Weeping -Color (Adrianna-wound Skin Appearance) Assessed -Temperature (Adrianna-wound Skin No Abnormality Appearance) (Pt Warm) -Tenderness on Palpation (Adrianna-wound No Skin Appearance) -Ulcer Cleansing Wound Cleanser -Foul Odor after Cleansing No -Anesthetic Used 5% Lidocaine Gel #10 RT LAT LE -Current Size (cm) - Length 0.1 -Current Size (cm) - Width 0.1 -Current Size (cm) - Depth 0.1 -Total Square Cm 0.01 -Photo Taken Yes -Tunneling No -Undermining/Tunneling No -Circular Undermining No -Exudate Amt Small -Exudate Type Serosanguineous -Wound Margin Indistinct, Non -Visible -Granulation Amt Large (67-100%) -Granulation Quality [place] -Slough/Fibrin Yes -Necrosis Amt Small (1-33%) -Necrotic Tissue Type Adherent Slough -Structure Exposed N/A -Texture (Adrianna-wound Skin Appearance) Assessed -Moisture (Adrianna-wound Skin Appearance) Weeping -Color (Adrianna-wound Skin Appearance) Assessed -Temperature (Adrianna-wound Skin No Abnormality Appearance) (Pt Warm) -Tenderness on Palpation (Adrianna-wound No Skin Appearance) -Ulcer Cleansing Wound Cleanser -Foul Odor after Cleansing No -Anesthetic Used 5% Lidocaine Gel Lower Limb Edema Present Yes Yes Right Calf (cm) 55 56.8 Right Ankle (cm) 29.5 27 Left Calf (cm) 53.7 54 Left Ankle (cm) 29.5 30.5 - Nurse 2 - General Ulcer CM Notes Start: 11/24/24 10:57 Freq: Status: Active Protocol: Activity Type Activity Date Activity User E-sign Co-sign Detail Recorded Client Recorded Date Recorded By Document 11/24/24 11:49 [id number] 11/24/24 11:50 Document 12/15/24 11:33 [id number] 12/15/24 11:34 11/24/24 12/15/24 11:49 11:33 Pain Scale: 0-10 Numeric Is Patient Pain Free? Yes Yes - Nurse 3 - General Ulcer D/C NN Start: 11/24/24 10:57 Freq: Status: Active Protocol: Activity Type Activity Date Activity User E-sign Co-sign Detail Recorded Client Recorded Date Recorded By Document 11/24/24 12:40 RB [id number] 11/24/24 12:40 RB Document 12/15/24 12:14 [id number] 12/15/24 12:15 11/24/24 12/15/24 12:40 12:14 Wound Care Center Nurse 3 lle -Primary Dressing Applied Optilok 5x5 1/2 -Optilok 5x5 1/2 1 BLE -Lotion applied to leg before Yes compression wrap -Multi-Layered Wrap Application Unna Boot - Bilateral -Tubular Bandage Double Layer -Size of Tubigrip Used Size F -Size F ($) 4 -Unna- Bilat (Qty applied) 1 Treatment Response Procedure Tolerated Well Pain Scale: 0-10 Numeric Is Patient Pain Free? Yes Yes - Visit Discharge Discharge Condition Stable Stable Ambulatory Status Ambulatory Ambulatory, Walker Transportation Private Auto Private Auto Accompanied by Medication Reconcilliation completed & No No provided to patient/care provider Clinical Summary of Care Provided Yes Yes Assessment/Plan Assessment/Plan (1) Non-pressure chronic ulcer left lower leg, limited to breakdown skin: CODE(S): L97.921 - Non-pressure chronic ulcer of unspecified part of left lower leg limited to breakdown of skin (2) Venous insufficiency: CODE(S): I87.2 - Venous insufficiency (chronic) (peripheral) (3) Edema of both lower extremities: CODE(S): R60.0 - Localized edema (4) Lymphedema: CODE(S): I89.0 - Lymphedema, not elsewhere classified (5) Essential hypertension: CODE(S): I10 - Essential (primary) hypertension (6) Morbid obesity with BMI of 45.0-49.9, adult: CODE(S): E66.01 - Morbid (severe) obesity due to excess calories; Z68.42 -Body mass index [BMI] 45.0-49.9, adult (7) Debility: CODE(S): R53.81 - Other malaise (8) Osteoarthritis: CODE(S): M19.90 - Unspecified osteoarthritis, unspecified site QUALIFIERS: Osteoarthritis location: multiple joints Osteoarthritis type: primary Qualified Code(s): M15.9 - Polyosteoarthritis, unspecified (9) COPD (chronic obstructive pulmonary disease): CODE(S): J44.9 - Chronic obstructive pulmonary disease, unspecified QUALIFIERS: COPD type: unspecified COPD Qualified Code(s): J44.9 - Chronic obstructive pulmonary disease, unspecified (10) Chronic hypoxemic respiratory failure: CODE(S): J96.11 - Chronic respiratory failure with hypoxia (11) Pulmonary hypertension: CODE(S): I27.20 - Pulmonary hypertension, unspecified (12) Hypothyroidism: CODE(S): E03.9 - Hypothyroidism, unspecified QUALIFIERS: Hypothyroidism type: unspecified Qualified Code(s): E03.9 - Hypothyroidism, unspecified (13) Type 2 diabetes mellitus: CODE(S): E11.9 - Type 2 diabetes mellitus without complications QUALIFIERS: Diabetes mellitus residential insulin use: without oil heaterman use Diabetes mellitus complication status: with other specified complication Qualified Code(s): E11.69 - Type 2 diabetes mellitus with other specified complication (14) DOLORES (obstructive sleep apnea): CODE(S): G47.33 - Obstructive sleep apnea (adult) (pediatric) (15) Cellulitis of left lower extremity: CODE(S): L03.116 - Cellulitis of left lower limb (16) Venous ulcer with fat layer exposed: CODE(S): I83.009 - Varicose veins of unspecified lower extremity with ulcer of unspecified site; L97.902 - Non-pressure chronic ulcer of unspecified part of unspecified lower leg with fat layer exposed (17) Venous stasis ulcer of right calf with fat layer exposed: CODE(S): I83.012 - Varicose veins of right lower extremity with ulcer of calf; L97.212 - Non-pressure chronic ulcer of right calf with fat layer exposed QUALIFIERS: Varicose vein presence: with varicose veins Qualified Code(s): I83.012 - Varicose veins of right lower extremity with ulcer of calf; L97.212 - Non- pressure chronic ulcer of right calf with fat layer exposed (18) Venous stasis ulcer of left calf with fat layer exposed: CODE(S): I83.022 - Varicose veins of left lower extremity with ulcer of calf; L97.222 - Non-pressure chronic ulcer of left calf with fat layer exposed QUALIFIERS: Varicose vein presence: with varicose veins Qualified Code(s): I83.022 - Varicose veins of left lower extremity with ulcer of calf; L97.222 - Non- pressure chronic ulcer of left calf with fat layer exposed PLAN: Plan Evaluation and debridement performed today in clinic as annotated above. At home wound-care instructions: Will apply UNNA boots to b/l LE and apply superabsorber to left lateral leg and ABD to right lateral leg and have them changed next week as a nurse visit and return to clinic 12/29. She was instructed to keep dressings clean and dry. Will have her use lymphedema pumps for 60 minutes 2-3 times daily. She has been noncompliant with pumps and was encouraged to increase frequency. Also, encouraged to take diuretic daily. Off-loading: The patient was instructed to avoid pressure and friction on the affected areas. Reposition every 2 hours at minimum. Avoid prolonged standing and/or dangling of legs. When seated, feet should be elevated at chest level. Frequent ambulation is encouraged. Diet: Patient encouraged to increase protein intake while taking caution to avoid high carbohydrate and/or sugar intake. Encouraged weight loss. Labs/cultures/imaging: Wound Culture of left allen ulcer showed pseudomonas and MRSA. Ciprofloxacin prescribed. Venous ultrasound showed incompetence of veins of left lower extremity and vascular performed an ablation on 07/27/2024. Culture showed E. faecalis, anaerobic bacteria and Pseudomonas advised to restart Ciprofloxacin and Flagyl was prescribed for Anaerobic bacteria. 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 She has been referred to infectious disease and they will see her 09/27/2024. We are going to try treating her with Bactrim DS until she sees Dr. Johnson. She is tolerating this. Completed Bactrim DS. Completed IV Gentamicin. Repeat venous testing did not show thrombosis or failure of previous venous ablation. Encouraged her to get her CPAP mask to improve DOLORES and pulmonary HTN treatment compliance which is adding to her decompensated lymphedema. Follow-up: Will have her follow up in 2 weeks. Return sooner or report to the emergency room should symptoms worsen, or new symptoms arise. Note: webtide speech recognition train control electronic technician software was used to create portions of this document. Sound-alike and misspelled words, as well as other train control electronic technician errors may be contained in the documentation. 12/15/24 1408 <Electronically signed by Sneha Rosa DO> Cosigner Signature (if applicable): CC: ~ Signed [facility] Work Phone: 1(886) 573-244806-19-2025 Evaluation note* Diagnosis Onset Date Resolution Status Admit Date Rhinosinusitis acute December 07, 2024 12:32pm Vertigo chronic December 07 12:32pm Cellulitis of left lower extremity acute December 15, 2024 10:15am 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, limited to breakdown skin acute December 15, 2024 10:15am Venous stasis ulcer of left calf with fat layer exposed acute November 10:15am Venous stasis ulcer of right calf with fat layer exposed acute December 15, 2024 10:15am Venous ulcer with fat layer exposed acute December 15, 2024 10:15am Chronic hypoxemic respirator y failure chronic December 15, 2024 10:15am COPD (chronic obstructive pulmonary disease) chronic December 15 10:15am Debility chronic December 15 10:15am 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 both lower extremities 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 December 15, 2024 10:15am Essential hypertension chronic Ju 2024 10:15am Hypothyroidism chronic December 15, 2024 10:15am Lymphedema chronic December 15 10:15am Morbid obesity with BMI of 45.0-49.9, adult chronic December 15, 2024 10:15am DOLORES (obstructive sleep apnea) chroni c December 15, 2024 10:15am Osteoarthritis chronic December 15, 2024 10:15am Pulmonary hypertension chronic Ju ne 2024 10:15am Type 2 diabetes mellitus chronic December 15, 2024 10:15am Venous insufficiency chronic December 15, 2024 10:15am Cellulitis of left lower extremity acute January 12, 2025 10:45am 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, limited to breakdown skin acute January 12, 2025 10:45am Venous stasis ulcer of left calf with fat layer exposed acute December 10:45am Venous stasis ulcer of right calf with fat layer exposed acute January 12, 2025 10:45am Venous ulcer with fat layer exposed acute January 12, 2025 10:45am Chronic hypoxemic respirator y failure chronic January 12, 2025 10:45am COPD (chronic obstructive pulmonary disease) chronic January 12 10:45am Debility chronic January 12 10:45am Edema of both lower extremities 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 January 12, 2025 10:45am Essential hypertension chronic Ju ly 2024 10:45am Hypothyroidism chronic January 12, 2025 10:45am Lymphedema chronic January 12 10:45am Morbid obesity with BMI of 45.0-49.9, adult chronic January 12, 2025 10:45am DOLORES (obstructive sleep apnea) chroni c January 12, 2025 10:45am Osteoarthritis chronic January 12, 2025 10:45am Pulmonary hypertension chronic Ju ly 2024 10:45am Type 2 diabetes mellitus chronic January 12, 2025 10:45am Venous insufficiency chronic January 12, 2025 10:45am Cellulitis of left lower extremity acute January 19, 2025 10:13am 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, limited to breakdown skin acute January 19, 2025 10:13am Venous stasis ulcer of left calf with fat layer exposed acute January 10:13am Venous stasis ulcer of right calf with fat layer exposed acute 2024 10:13am Venous ulcer with fat layer exposed acute January 19, 2025 10:13am Chronic hypoxemic respirator y failure chronic January 19, 2025 10:13am COPD (chronic obstructive pulmonary disease) chronic January 19, 025 10:13am Debility chronic January 19 10:13am Edema of both lower extremities 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 January 19, 2025 10:13am Essential hypertension chronic 2024 10:13am Hypothyroidism chronic January 10:13am Lymphedema chronic January 19 10:13am Morbid obesity with BMI of 45.0-49.9, adult chronic January 19 10:13am DOLORES (obstructive sleep apnea) chroni c January 19, 2025 10:13am Osteoarthritis chronic January 10:13am Pulmonary hypertension chronic 2024 10:13am Type 2 diabetes mellitus chronic January 19, 2025 10:13am Venous insufficiency chronic 2024 10:13am Dizziness acute January 19 12:51pm Iron deficiency acute January 12:51pm Vitamin D deficiency acute 2024 12:51pm Vitamin D deficiency acute 2024 1:24pm COPD (chronic obstructive pulmonary disease) chronic February 07, 2025 1:24pm Elevated blood uric acid level chron ic February 07, 2025 1:24pm Essential hypertension chronic 2024 1:24pm Hypothyroidism chronic January 1:24pm Type 2 diabetes mellitus chronic February 07, 2025 1:24pm Vertigo chronic February 07, 025 1:24pm Dizziness acute February 15, 025 2:50pm Essential hypertension chronic [facility] 2024 2:50pm Hyperlipidemia chronic January 2:50pm Palpitations chronic 2025 2:50pm [facility] Work Phone: 1([phone]) 356-147406-19-2025 Evaluation note* Diagnosis Onset Date Resolution Status Admit Date Rhinosinusitis acute December 07, 2024 12:32pm Vertigo chronic December 07 12:32pm Cellulitis of left lower extremity acute December 15, 2024 10:15am 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, limited to breakdown skin acute December 15, 2024 10:15am Venous stasis ulcer of left calf with fat layer exposed acute December 15, 2024 10:15am Venous stasis ulcer of right calf with fat layer exposed acute December 15, 2024 10:15am Venous ulcer with fat layer exposed acute December 15, 2024 10:15am Chronic hypoxemic respirator y failure chronic December 15, 2024 10:15am COPD (chronic obstructive pulmonary disease) chronic December 15 10:15am Debility chronic December 15 10:15am Edema of both lower extremities 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 December 15, 2024 10:15am Essential hypertension chronic Ju ne 2024 10:15am Hypothyroidism chronic December 15, 2024 10:15am Lymphedema chronic December 15 10:15am Morbid obesity with BMI of 45.0-49.9, adult chronic December 15, 2024 10:15am DOLORES (obstructive sleep apnea) chroni c December 15, 2024 10:15am Osteoarthritis chronic December 15, 2024 10:15am Pulmonary hypertension chronic Ju ne 2024 10:15am Type 2 diabetes mellitus chronic December 15, 2024 10:15am Venous insufficiency chronic December 15, 2024 10:15am Cellulitis of left lower extremity acute January 12, 2025 10:45am 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, limited to breakdown skin acute January 12, 2025 10:45am Venous stasis ulcer of left calf with fat layer exposed acute January 12, 2025 10:45am Venous stasis ulcer of right calf with fat layer exposed acute January 12, 2025 10:45am Venous ulcer with fat layer exposed acute January 12, 2025 10:45am Chronic hypoxemic respirator y failure chronic January 12, 2025 10:45am COPD (chronic obstructive pulmonary disease) chronic January 12 10:45am Debility chronic January 12 10:45am Edema of both lower extremities 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 January 12, 2025 10:45am Essential hypertension chronic Ju ly 2024 10:45am Hypothyroidism chronic January 12, 2025 10:45am Lymphedema chronic January 12 10:45am Morbid obesity with BMI of 45.0-49.9, adult chronic January 12, 2025 10:45am DOLORES (obstructive sleep apnea) chroni c January 12, 2025 10:45am Osteoarthritis chronic January 12, 2025 10:45am Pulmonary hypertension chronic Ju ly 25th, 2025 10:45am Type 2 diabetes mellitus chronic January 12, 2025 10:45am Venous insufficiency chronic January 12, 2025 10:45am Cellulitis of left lower extremity acute January 19, 2025 10:13am 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, limited to breakdown skin acute January 19, 2025 10:13am Venous stasis ulcer of left calf with fat layer exposed acute 2024 10:13am Venous stasis ulcer of right calf with fat layer exposed acute 2024 10:13am Venous ulcer with fat layer exposed acute January 19, 2025 10:13am Chronic hypoxemic respirator y failure chronic January 19, 2025 10:13am COPD (chronic obstructive pulmonary disease) chronic January 19 10:13am Debility chronic January 19 10:13am Edema of both lower extremities 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 January 19, 2025 10:13am Essential hypertension chronic 2024 10:13am Hypothyroidism chronic January 10:13am Lymphedema chronic January 19 10:13am Morbid obesity with BMI of 45.0-49.9, adult chronic January 19 10:13am DOLORES (obstructive sleep apnea) chroni c January 19, 2025 10:13am Osteoarthritis chronic January 10:13am Pulmonary hypertension chronic [place] 2024 10:13am Type 2 diabetes mellitus chronic January 19, 2025 10:13am Venous insufficiency chronic 2024 10:13am Dizziness acute January 19 12:51pm Iron deficiency acute January 12:51pm Vitamin D deficiency acute 2024 12:51pm Vitamin D deficiency acute 2024 1:24pm COPD (chronic obstructive pulmonary disease) chronic February 07, 2025 1:24pm Elevated blood uric acid level chron ic February 07, 2025 1:24pm Essential hypertension chronic [facility] 2024 1:24pm Hypothyroidism chronic January 1:24pm Type 2 diabetes mellitus chronic February 07, 2025 1:24pm Vertigo chronic February 07, 2 025 1:24pm Dizziness acute February 15 2 025 2:50pm Essential hypertension chronic [facility] 2024 2:50pm Hyperlipidemia chronic [place] 28t h, 2025 2:50pm Palpitations chronic 2025 2:50pm Abnormal laboratory test chronic March 28, 2025 1:11pm DVT, bilateral lower limbs resolved March 28, 2025 1:11pm [facility] Work Phone: [phone] Radiology Diagnostic study [facility]06-06-2025 Progress note Author Sneha Rosa [facility] Note Date/Time November 24, 2024 1:31p m [facility] [address] [place] [address] Progress Note - Wound Care 11/24/24 1307 MR#: [id number] Acct: [id number] Name: LIZ WADSWORTH Rep #:[id number] : 1950 74 From: Sneha Rosa DO PCP: Dr. Luis Cortés MD Status:R EG RCR Location: History of Present Illness Date of Service: 11/24/24 Chief Complaint: ulcers b/l LE, bilateral lower extremity swelling History of Wound: Liz is a pleasant 74 yo woman that presents to the wound center for bilateral lower extremity edema and blisters and drainage of her bilateral lower extremities. She has had increased edema the last 2 weeks and her legs started seeping a few days ago. She has been wearing her tubigrip compression and had been using the lymphedema pumps until they started seeping fluid. She tries to elevate her legs when she is sitting but is not always consistent with doing this. She has been wrapping her leg with gauze when it is seeping but otherwise has not been doing any regular dressings. Patient has been treated at the wound center in the past for similar wounds, most recently October 2023. She has also been seen in the vascular surgery clinic where she was evaluated her for BLE DVT and venous insufficiency. Patienthas a h/o provoked DVTs and has been off treatment with Eliquis since June 01/2023. GSV ablation has been done to her right lower leg. She has received lymphedema pumps that were ordered during her last treatment course and has beenusing these. Last venous study was 03/2022. Last A1C 01/2023 was 6.4%. Last TSH - 01/2022 Patient's medical history is also significant for CHF, COPD, T2DM, lymphedema. She has a CPAP but has not been using this due to needing a new mask. She statesthat a prescription was to be sent and she never received the mask. Her current mask has a hole in it. Subjective Subjective Liz returns today for treatment of edema/ulcers to bilateral lower legs. She underwent venous ablation of left lower leg on 07/27/2024 but has not had resolution of drainage from the left lower leg since then with intermittent ulcer development. She has been using super absorbers and Kerlix to both legs for the last week and has continued to have drainage from both lower legs over the last week with resolution of right LE ulcer and drainage. Left lateral LE still is draining but less after IV antibiotic. She has been more compliant withwater pill and use of lymphedema pumps this week. Gentamicin IV course completed. Objective Data Objective Data Vital Signs: Vital Signs Temp Pulse Resp BP Pulse Ox 96.6 F L 73 18 147/79 H 92 11/24/24 10:57 11/24/24 10:57 11/24/24 10:57 11/24/24 10:57 11/19/24 00:36 Weight: 140.16 kg Body Mass Index (BMI) 49.8 Physical Exam Const alert, oriented x3, no apparent distress and healthy appearing General Appearance: cooperative; Negative for combative or lethargic Orientation / Consciousness: awake Exam Limitations: no limitations Nutritional Appearance: obese HEENT normocephalic and head/scalp atraumatic Eyes EOMs intact bilaterally General Eye: normal appearance of both eyes Neck full ROM General: trachea midline Lymph Lymphatic: lymphedema severe and pitting Resp normal respiratory effort and no use of accessory muscles Effort and Inspection: Negative for labored, stridor or audible wheezes Cardio regular rate and regular rhythm Back/Spine Cervical Spine: cervical ROM normal Extremity full ROM, normal capillary refill and no clubbing, cyanosis or edema General Extremity: edema bilateral lower extremity Details: severe (with skin changes associated with lymphedema, thickened nodular appearance from mid allen to ankle) Skin General Skin Exam: erythema, venous stasis and dermatitis Wounds: wounds noted Wound Narrative: as in clinical panel, stable erythema and light serous drainage from bilateral lower legs with small ulcers on lateral aspects bilaterally, nodular appearance of skin associated with lymphedema Neuro oriented x3, CN's II-XII intact bilaterally, no focal motor deficits and no sensory deficits noted Psych thought process normal, cooperative, affect normal, speech normal and activity/motor behavior normal Debridement Note Debridement Note Wound debrided: right lateral LE Laterality: Right No debridement was completed: No debridement was completed today Post-Debridement Measurements and Additional Note: Post-Debridement Measurements/Treatment - Nurse 1 - General Ulcer Assessment Start: 11/24/24 10:57 Freq: Status: Active Protocol: KELSEY Activity Type Activity Date Activity User E-sign Co-sign Detail Recorded Client Recorded Date Recorded By Document 11/24/24 10:57 RB [id number] 11/24/24 11:00 RB 11/24/24 10:57 WC - Today's Visit Information Type of service Follow-up Visit (Physician/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 ) Arrival Mode Ambulatory, Walker Transfer Assistance None Accompanied by Patient Identification Verified (Name & Yes ) Patient Requires Transmission-Based No Precautions Height and Weight Body Mass Index (BMI) 49.8 BMI Classification Obese Vital Signs Temperature (97.8 F-99.1 F) 96.6 F L Temperature Source Temporal Pulse Rate (60-100) 73 Pulse Location Monitor Respiratory Rate (12-18) 18 Respiratory rate source Observation Blood Pressure (90/60-120/80) 147/79 H Blood Pressure Mean (mm Hg) 101 Source Monitor Position Semi-Fowlers Blood Pressure Location Left Arm History Since Last Visit- (Skip if this is Patient's initial visit) Have you changed medications since your No last visit? Any new allergies or adverse reactions No Had a fall/change in ADL's that may No increase risk of falls Signs or symptoms of abuse and/or No neglect since last visit Have you been in the hospital since your No last visit? Has dressing in place as prescribed Yes Has compression in place as prescribed Yes Has offloadiing in place as prescribed N/A Experienced any changes in pain level or No management Left Footwear Regular Shoe Right Footwear Regular Shoe Pain Scale: 0-10 Numeric Is Patient Pain Free? Yes - Nurse 1 - General Ulcer Measurement Start: 11/24/24 10:57 Freq: Status: Active Protocol: Activity Type Activity Date Activity User E-sign Co-sign Detail Recorded Client Recorded Date Recorded By Document 11/24/24 10:57 ROBERT [id number] 11/24/24 11:00 RB 11/24/24 10:57 Wound Center Nurse 1 #9 Left Lateral Allen -Combined with other wound No -Current Size (cm) - Length 0.1 -Current Size (cm) - Width 0.1 -Current Size (cm) - Depth 0.1 -Total Square Cm 0.01 -Photo Taken Yes -Epithelialization Large 67-100% -Tunneling No -Undermining/Tunneling No -Circular Undermining No -Exudate Amt Small -Exudate Type Serosanguineous -Wound Margin Indistinct, Non -Visible -Granulation Amt Large (67-100%) -Granulation Quality [place] -Slough/Fibrin Yes -Necrosis Amt Small (1-33%) -Necrotic Tissue Type Adherent Slough -Structure Exposed N/A -Texture (Adrianna-wound Skin Appearance) Assessed -Moisture (Adrianna-wound Skin Appearance) Weeping -Color (Adrianna-wound Skin Appearance) Assessed -Temperature (Adrianna-wound Skin No Abnormality Appearance) (Pt Warm) -Tenderness on Palpation (Adrianna-wound No Skin Appearance) -Ulcer Cleansing Wound Cleanser -Foul Odor after Cleansing No -Anesthetic Used 5% Lidocaine Gel #10 RT LAT LE -Current Size (cm) - Length 0.1 -Current Size (cm) - Width 0.1 -Current Size (cm) - Depth 0.1 -Total Square Cm 0.01 -Photo Taken Yes -Tunneling No -Undermining/Tunneling No -Circular Undermining No -Exudate Amt Small -Exudate Type Serosanguineous -Wound Margin Indistinct, Non -Visible -Granulation Amt Large (67-100%) -Granulation Quality [place] -Slough/Fibrin Yes -Necrosis Amt Small (1-33%) -Necrotic Tissue Type Adherent Slough -Structure Exposed N/A -Texture (Adrianna-wound Skin Appearance) Assessed -Moisture (Adrianna-wound Skin Appearance) Weeping -Color (Adrianna-wound Skin Appearance) Assessed -Temperature (Adrianna-wound Skin No Abnormality Appearance) (Pt Warm) -Tenderness on Palpation (Adrianna-wound No Skin Appearance) -Ulcer Cleansing Wound Cleanser -Foul Odor after Cleansing No -Anesthetic Used 5% Lidocaine Gel Lower Limb Edema Present Yes Right Calf (cm) 55 Right Ankle (cm) 29.5 Left Calf (cm) 53.7 Left Ankle (cm) 29.5 WC - Nurse 2 - General Ulcer CM Notes Start: 11/24/24 10:57 Freq: Status: Active Protocol: Activity Type Activity Date Activity User E-sign Co-sign Detail Recorded Client Recorded Date Recorded By Document 11/24/24 11:49 GM [id number] 11/24/24 11:50 GM 11/24/24 11:49 Pain Scale: 0-10 Numeric Is Patient Pain Free? Yes WC - Nurse 3 - General Ulcer D/C NN Start: 11/24/24 10:57 Freq: Status: Active Protocol: Activity Type Activity Date Activity User E-sign Co-sign Detail Recorded Client Recorded Date Recorded By Document 11/24/24 12:40 RB [id number] 11/24/24 12:40 RB 11/24/24 12:40 Wound Care Center Nurse 3 BLE -Lotion applied to leg before Yes compression wrap -Tubular Bandage Double Layer -Size of Tubigrip Used Size F -Size F ($) 4 Treatment Response Procedure Tolerated Well Pain Scale: 0-10 Numeric Is Patient Pain Free? Yes WC - Visit Discharge Discharge Condition Stable Ambulatory Status Ambulatory Transportation Private Auto Accompanied by Medication Reconcilliation completed & No provided to patient/care provider Clinical Summary of Care Provided Yes Additional Wound Wound debrided: left lateral LE Laterality: Left Type of Debridement: Selective debridement Anesthesia Used: 4% Lidocaine Solution Depth: Down to and including healthy tissue and in the subcutaneous layer Instrument Used: - (gauze) Tissue Removed: Yellow slough, devitalized tissue Severity: Limited To Skin Breakdown Amount of bleeding with debridement: None Patient tolerated procedure: Patient tolerated procedure well Assessment/Plan Assessment/Plan (1) Non-pressure chronic ulcer left lower leg, limited to breakdown skin: CODE(S): L97.921 - Non-pressure chronic ulcer of unspecified part of left lower leg limited to breakdown of skin (2) Venous insufficiency: CODE(S): I87.2 - Venous insufficiency (chronic) (peripheral) (3) Edema of both lower extremities: CODE(S): R60.0 - Localized edema (4) Lymphedema: CODE(S): I89.0 - Lymphedema, not elsewhere classified (5) Essential hypertension: CODE(S): I10 - Essential (primary) hypertension (6) Morbid obesity with BMI of 45.0-49.9, adult: CODE(S): E66.01 - Morbid (severe) obesity due to excess calories; Z68.42 -Body mass index [BMI] 45.0-49.9, adult (7) Debility: CODE(S): R53.81 - Other malaise (8) Osteoarthritis: CODE(S): M19.90 - Unspecified osteoarthritis, unspecified site QUALIFIERS: Osteoarthritis location: multiple joints Osteoarthritis type: primary Qualified Code(s): M15.9 - Polyosteoarthritis, unspecified (9) COPD (chronic obstructive pulmonary disease): CODE(S): J44.9 - Chronic obstructive pulmonary disease, unspecified QUALIFIERS: COPD type: unspecified COPD Qualified Code(s): J44.9 - Chronic obstructive pulmonary disease, unspecified (10) Chronic hypoxemic respiratory failure: CODE(S): J96.11 - Chronic respiratory failure with hypoxia (11) Pulmonary hypertension: CODE(S): I27.20 - Pulmonary hypertension, unspecified (12) Hypothyroidism: CODE(S): E03.9 - Hypothyroidism, unspecified QUALIFIERS: Hypothyroidism type: unspecified Qualified Code(s): E03.9 - Hypothyroidism, unspecified (13) Type 2 diabetes mellitus: CODE(S): E11.9 - Type 2 diabetes mellitus without complications QUALIFIERS: Diabetes mellitus complication status: with other specified complication Diabetes mellitus residential insulin use: without residential use Qualified Code(s): E11.69 - Type 2 diabetes mellitus with other specified complication (14) DOLORES (obstructive sleep apnea): CODE(S): G47.33 - Obstructive sleep apnea (adult) (pediatric) (15) Cellulitis of left lower extremity: CODE(S): L03.116 - Cellulitis of left lower limb (16) Venous ulcer with fat layer exposed: CODE(S): I83.009 - Varicose veins of unspecified lower extremity with ulcer of unspecified site; L97.902 - Non-pressure chronic ulcer of unspecified part of unspecified lower leg with fat layer exposed (17) Venous stasis ulcer of right calf with fat layer exposed: CODE(S): I83.012 - Varicose veins of right lower extremity with ulcer of calf; L97.212 - Non-pressure chronic ulcer of right calf with fat layer exposed QUALIFIERS: Varicose vein presence: with varicose veins Qualified Code(s): I83.012 - Varicose veins of right lower extremity with ulcer of calf; L97.212 - Non- pressure chronic ulcer of right calf with fat layer exposed (18) Venous stasis ulcer of left calf with fat layer exposed: CODE(S): I83.022 - Varicose veins of left lower extremity with ulcer of calf; L97.222 - Non-pressure chronic ulcer of left calf with fat layer exposed QUALIFIERS: Varicose vein presence: with varicose veins Qualified Code(s): I83.022 - Varicose veins of left lower extremity with ulcer of calf; L97.222 - Non- pressure chronic ulcer of left calf with fat layer exposed PLAN: Plan Evaluation and debridement performed today in clinic as annotated above. At home wound-care instructions: Will dress left lower leg with super absorber or ABD and roll gauze changed daily for heavy drainage. She was instructed to keep dressings clean and dry. Will have her use lymphedema pumps for 60 minutes 2-3 times daily. She has been noncompliant with pumps and was encouraged to increase frequency. Also, encouraged to take diuretic daily. Off-loading: The patient was instructed to avoid pressure and friction on the affected areas. Reposition every 2 hours at minimum. Avoid prolonged standing and/or dangling of legs. When seated, feet should be elevated at chest level. Frequent ambulation is encouraged. Diet: Patient encouraged to increase protein intake while taking caution to avoid high carbohydrate and/or sugar intake. Encouraged weight loss. Labs/cultures/imaging: Wound Culture of left allen ulcer showed pseudomonas and MRSA. Ciprofloxacin prescribed. Venous ultrasound showed incompetence of veins of left lower extremity and vascular performed an ablation on 07/27/2024. Culture showed E. faecalis, anaerobic bacteria and Pseudomonas advised to restart Ciprofloxacin and Flagyl was prescribed for Anaerobic bacteria. 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 She has been referred to infectious disease and they will see her 09/27/2024. We are going to try treating her with Bactrim DS until she sees Dr. Johnson. She is tolerating this. Completed Bactrim DS. Wound culture taken 11/03/24 was positive. Completed Gentamicin IV x 10 days and Flagyl as of 11/22/24. Xray of left lower leg did not show osteomyelitis. Repeat venous testing did not show thrombosis or failure of previous venous ablation. Encouraged her to get her CPAP mask to improve DOLORES and pulmonary HTN treatment compliance which is adding to her decompensated lymphedema. Follow-up: Will have her follow up in 2 weeks. Return sooner or report to the emergency room should symptoms worsen, or new symptoms arise. Note: webtide speech recognition train control electronic technician software was used to create portions of this document. Sound-alike and misspelled words, as well as other train control electronic technician errors may be contained in the documentation. 11/24/24 1331 <Electronically signed by Sneha Rosa DO> Cosigner Signature (if applicable): CC: ~ Signed [facility] Work Phone: [phone] 313-393705-30-2025 Progress note Author [facility]neha [facility] Note Date/Time November 17, 2024 1:00p m [facility] [address] [place] [address] Progress Note - Wound Care 11/17/24 1244 MR#: [id number] Acct: [id number] Name: LIZ WADSWORTH Rep #:[id number] : 1950 74 From: Sneha Rosa DO PCP: Dr. Luis Cortés MD Status:R EG RCR Location: History of Present Illness Date of Service: 11/17/24 Chief Complaint: ulcers b/l LE, bilateral lower extremity swelling History of Wound: Liz is a pleasant 74 yo woman that presents to the wound center for bilateral lower extremity edema and blisters and drainage of her bilateral lower extremities. She has had increased edema the last 2 weeks and her legs started seeping a few days ago. She has been wearing her tubigrip compression and had been using the lymphedema pumps until they started seeping fluid. She tries to elevate her legs when she is sitting but is not always consistent with doing this. She has been wrapping her leg with gauze when it is seeping but otherwise has not been doing any regular dressings. Patient has been treated at the wound center in the past for similar wounds, most recently October 2023. She has also been seen in the vascular surgery clinic where she was evaluated her for BLE DVT and venous insufficiency. Patienthas a h/o provoked DVTs and has been off treatment with Eliquis since June 01/2023. GSV ablation has been done to her right lower leg. She has received lymphedema pumps that were ordered during her last treatment course and has beenusing these. Last venous study was 03/2022. Last A1C 01/2023 was 6.4%. Last TSH - 01/2022 Patient's medical history is also significant for CHF, COPD, T2DM, lymphedema. She has a CPAP but has not been using this due to needing a new mask. She statesthat a prescription was to be sent and she never received the mask. Her current mask has a hole in it. Subjective Subjective Liz returns today for treatment of edema to bilateral lower legs. She underwent venous ablation of left lower leg on 07/27/2024 but has not had resolution of drainage from the left lower leg since then with intermittent ulcer development. She has been using super absorbers and Kerlix to both legs for the last week and has continued to have drainage from both lower legs over the last week with new ulcer development to both legs on the lateral aspects of her lower legs. She admits to only using lymphedema pumps once daily and she hasnot been taking her water pill the last 2 days. Her swelling is much worse this week extending into both of her thighs. Wound culture was positive for E.coli, Enterococcus and Klebsiella and anaerobicbacteria and IV antibiotic was started on 11/14/24 of Gentamicin, she has had 3 doses. She was started on Flagyl on 11/10/24. Objective Data Objective Data Vital Signs: Vital Signs Temp Pulse Resp BP Pulse Ox O2 Del Method 98.3 F 77 20 H 153/76 H 92 Room Air 11/17/24 09:46 11/17/24 09:46 11/17/24 09:46 11/17/24 09:46 11/17/24 09:46 11/17/24 09:46 Oxygen Delivery Method Room Air Weight: 140.16 kg Body Mass Index (BMI) 49.8 Lab / Micro Data Micro: Microbiology 11/03/24 10:56 Wound - Leg, Left Gram Stain - Final 11/03/24 10:56 Wound - Leg, Left Wound Culture - Final Escherichia coli Klebsiella pneumoniae sp pneum Enterococcus faecalis 11/03/24 10:56 Wound - Leg, Left Anaerobic Culture - Final Anaerobic cocci Physical Exam Const alert, oriented x3, no apparent distress and healthy appearing General Appearance: cooperative; Negative for combative or lethargic Orientation / Consciousness: awake Exam Limitations: no limitations Nutritional Appearance: obese HEENT normocephalic and head/scalp atraumatic Eyes EOMs intact bilaterally General Eye: normal appearance of both eyes Neck full ROM General: trachea midline Lymph Lymphatic: lymphedema severe and pitting Resp normal respiratory effort and no use of accessory muscles Effort and Inspection: Negative for labored, stridor or audible wheezes Cardio regular rate and regular rhythm Back/Spine Cervical Spine: cervical ROM normal Extremity full ROM, normal capillary refill and no clubbing, cyanosis or edema General Extremity: edema bilateral lower extremity Details: severe (with skin changes associated with lymphedema, thickened nodular appearance from mid allen to ankle) Skin General Skin Exam: erythema, venous stasis and dermatitis Wounds: wounds noted Wound Narrative: as in clinical panel, stable erythema and light serous drainage from bilateral lower legs with small ulcers on lateral aspects bilaterally, nodular appearance of skin associated with lymphedema Neuro oriented x3, CN's II-XII intact bilaterally, no focal motor deficits and no sensory deficits noted Psych thought process normal, cooperative, affect normal, speech normal and activity/motor behavior normal Debridement Note Debridement Note Wound debrided: right lower lateral leg Laterality: Right Type of Debridement: Excisional debridement Anesthesia Used: 4% Lidocaine Solution Depth: Down to and including healthy tissue and in the subcutaneous layer Percentage of wound debrided: 100 Instrument Used: 3mm curette Tissue Removed: Yellow slough, devitalized tissue Severity: Fat Layer Exposed Amount of bleeding with debridement: Mild Bleeding Controlled with: Compression and gauze Patient tolerated procedure: Patient tolerated procedure well Post-Debridement Measurements and Additional Note: Post-Debridement Measurements/Treatment - Nurse 1 - General Ulcer Assessment Start: 10/27/24 10:04 Freq: Status: Active Protocol: [email or web address] Activity Type Activity Date Activity User E-sign Co-sign Detail Recorded Client Recorded Date Recorded By Document 10/27/24 10:04 [id number] 10/27/24 10:10 GM Document 11/03/24 10:36 RB [id number] 11/03/24 10:38 RB Document 11/10/24 10:17 RB [id number] 11/10/24 10:19 RB Document 11/17/24 09:46 RB [id number] 11/17/24 09:50 RB 05/03/1511/03/24 11/10/24 10:04 10:36 10:17 WC - Today's Visit Information Type of service Follow-up Visit Follow-up Visit Follow-up Visit (Physician/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 (Physician/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 (Physician/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 ) ) ) Arrival Mode Ambulatory, Ambulatory, Ambulatory, Wheelchair Walker Walker Transfer Assistance Manual,None None Patient Identification Verified (Name & Yes Yes Yes ) Patient Requires Transmission-Based No No No Precautions Height and Weight Body Mass Index (BMI) 49.8 49.8 49.8 BMI Classification Obese Obese Obese Vital Signs Temperature (97.8 F-99.1 F) 96.8 F L 96 F L 96.4 F L Temperature Source Temporal Temporal Temporal Pulse Rate (60-100) 79 82 Pulse Location Monitor Monitor Monitor Respiratory Rate (12-18) 19 H 18 18 Respiratory rate source Observation Observation Observation Pulse Oximetry Oxygen Delivery Method Room Air Blood Pressure (90/60-120/80) 153/68 H 161/85 H 144/63 H Blood Pressure Mean (mm Hg) 96 110 90 Source Monitor Monitor Monitor Position Sitting Semi-Fowlers Sitting Blood Pressure Location Left Arm Left Arm Left Arm History Since Last Visit- (Skip if this is Patient's initial visit) Have you changed medications since your No No No last visit? Any new allergies or adverse reactions No No No Had a fall/change in ADL's that may No No No increase risk of falls Signs or symptoms of abuse and/or No No No neglect since last visit Have you been in the hospital since your No No No last visit? Has dressing in place as prescribed Yes Yes Yes Has compression in place as prescribed Yes Yes Yes Has offloadiing in place as prescribed N/A N/A N/A Experienced any changes in pain level or No No No management Left Footwear Regular Shoe Regular Shoe Right Footwear Regular Shoe Regular Shoe Pain Scale: 0-10 Numeric Is Patient Pain Free? Yes Yes Yes left knee -Description -Intensity -Duration (hours) -Pain Behavior -Pain Aggravating Factors -Alleviating Factors/Interventions -Effectiveness of Alleviating Factor/ Intervention 11/17/24 09:46 WC - Today's Visit Information Type of service Follow-up Visit (Physician/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 ) Arrival Mode Ambulatory, Walker Transfer Assistance Manual Patient Identification Verified (Name & Yes ) Patient Requires Transmission-Based No Precautions Height and Weight Body Mass Index (BMI) 49.8 BMI Classification Obese Vital Signs Temperature (97.8 F-99.1 F) 98.3 F Temperature Source Temporal Pulse Rate (60-100) 77 Pulse Location Monitor Respiratory Rate (12-18) 20 H Respiratory rate source Observation Pulse Oximetry 92 Oxygen Delivery Method Room Air Blood Pressure (90/60-120/80) 153/76 H Blood Pressure Mean (mm Hg) 101 Source Monitor Position Sitting Blood Pressure Location Right Arm History Since Last Visit- (Skip if this is Patient's initial visit) Have you changed medications since your No last visit? Any new allergies or adverse reactions No Had a fall/change in ADL's that may No increase risk of falls Signs or symptoms of abuse and/or No neglect since last visit Have you been in the hospital since your No last visit? Has dressing in place as prescribed Yes Has compression in place as prescribed Yes Has offloadiing in place as prescribed N/A Experienced any changes in pain level or No management Left Footwear Regular Shoe Right Footwear Regular Shoe Pain Scale: 0-10 Numeric Is Patient Pain Free? No left knee -Description Aching -Intensity 5 -Duration (hours) Acute -Pain Behavior Guarding, Irritability -Pain Aggravating Factors ADL's,Exercise/ Activity -Alleviating Factors/Interventions Medication -Effectiveness of Alleviating Factor/ Minimally Intervention effective WC - Nurse 1 - General Ulcer Measurement Start: 10/27/24 10:04 Freq: Status: Active Protocol: Activity Type Activity Date Activity User E-sign Co-sign Detail Recorded Client Recorded Date Recorded By Document 10/27/24 10:04 [id number] 10/27/24 10:10 Document 11/03/24 10:36 [id number] 11/03/24 10:38 Document 11/10/24 10:17 RB [id number] 11/10/24 10:19 RB Document 11/17/24 09:46 RB [id number] 11/17/24 09:50 RB 10/27/24 11/03/24 11/10/24 10:04 10:36 10:17 Wound Center Nurse 1 lle -Combined with other wound No No -Current Size (cm) - Length 0.1 0.1 -Current Size (cm) - Width 0.1 0.1 -Current Size (cm) - Depth 0.1 0.1 -Total Square Cm 0.01 0.01 -Photo Taken No -Tunneling No No -Undermining/Tunneling No No -Circular Undermining No No -Exudate Amt Large Large -Exudate Type Serosanguineous Serosanguineous -Wound Margin Distinct, Outline Attached -Granulation Amt Large (67-100%) Large (67-100%) -Granulation Quality [place] Stat[place] -Slough/Fibrin Yes Yes -Necrosis Amt Small (1-33%) Small (1-33%) -Necrotic Tissue Type Adherent Slough Adherent Slough -Structure Exposed N/A N/A -Texture (Adrianna-wound Skin Appearance) Assessed Assessed, Excoriation -Moisture (Adrianna-wound Skin Appearance) Maceration Weeping -Color (Adrianna-wound Skin Appearance) Assessed Assessed -Temperature (Adrianna-wound Skin No Abnormality No Abnormality Appearance) (Pt Warm) (Pt Warm) -Tenderness on Palpation (Adrianna-wound No No Skin Appearance) -Ulcer Cleansing Wound Cleanser Wound Cleanser -Foul Odor after Cleansing No No -Anesthetic Used 5% Lidocaine 5% Lidocaine Gel Gel -Wound Comment(s) Lower Limb Edema Present No Yes Yes Right Calf (cm) 53.5 51.5 56 Right Ankle (cm) 31.5 28.5 30.5 Left Calf (cm) 48.0 50 53 Left Ankle (cm) 31.5 27.7 30.5 11/17/24 09:46 Wound Center Nurse 1 lle -Combined with other wound No -Current Size (cm) - Length 0.1 -Current Size (cm) - Width 0.1 -Current Size (cm) - Depth 0.1 -Total Square Cm 0.01 -Photo Taken Yes -Tunneling No -Undermining/Tunneling No -Circular Undermining No -Exudate Amt Large -Exudate Type Serosanguineous -Wound Margin Indistinct, Non -Visible -Granulation Amt Large (67-100%) -Granulation Quality [place],Red -Slough/Fibrin Yes -Necrosis Amt Small (1-33%) -Necrotic Tissue Type Adherent Slough -Structure Exposed N/A -Texture (Adrianna-wound Skin Appearance) Excoriation -Moisture (Adrianna-wound Skin Appearance) Maceration -Color (Adrianna-wound Skin Appearance) Assessed -Temperature (Adrianna-wound Skin No Abnormality Appearance) (Pt Warm) -Tenderness on Palpation (Adrianna-wound No Skin Appearance) -Ulcer Cleansing Wound Cleanser -Foul Odor after Cleansing No -Anesthetic Used 5% Lidocaine Gel -Wound Comment(s) pt SOB after ambulating from car to wound center. pulse ox 91 -92 on room air. SOB subsided after sitting a few minutes Lower Limb Edema Present Yes Right Calf (cm) 58 Right Ankle (cm) 29.5 Left Calf (cm) 52.7 Left Ankle (cm) 30 WC - Nurse 2 - General Ulcer CM Notes Start: 10/27/24 10:04 Freq: Status: Active Protocol: Activity Type Activity Date Activity User E-sign Co-sign Detail Recorded Client Recorded Date Recorded By Document 10/27/24 11:11 [id number] 10/27/24 11:11 Document 11/03/24 10:53 [id number] 11/03/24 10:58 Document 11/10/24 10:57 [id number] 11/10/24 11:05 Document 11/17/24 10:05 [id number] 11/17/24 10:11 GM 10/27/24 11/03/24 11/10/24 11:11 10:53 10:57 Wound Center Nurse 2 lle -Time 10:57 -Correct Patient Yes Yes -Correct Side, Site, Position Yes Yes -Correct Procedure No No -Procedure Performed No No -Tunneling No -Undermining/Tunneling No -Circular Undermining No -Ulcer Cleansing Not Cleansed -Foul Odor after Cleansing No -Bioengineered Tissue No -Offloading No -Wound Comment(s) draining but not open #9 Left Lateral Allen -Time -Correct Patient -Correct Side, Site, Position -Correct Procedure -Procedure Performed -Type of Procedure -Clinical Debridement -Tissue Removed -Post Debridement (cm) - Length -Post Debridement (cm) - Width -Post Debridement (cm) - Depth -Total Square (Post) (cm) -Area of Debridement (cm) - Length -Area of Debridement (cm) - Width -Total Square (Area) (cm) -Tunneling -Undermining/Tunneling -Circular Undermining -Wound/Ulcer Outcome -Ulcer Cleansing -Foul Odor after Cleansing -Bioengineered Tissue -Bleeding Controlled with -Treatment Response -Debridement - Open, 1st 20sq cm #10 RT LAT LE -Time -Correct Patient -Correct Side, Site, Position -Correct Procedure -Procedure Performed -Type of Procedure -Clinical Debridement -Tissue Removed -Post Debridement (cm) - Length -Post Debridement (cm) - Width -Post Debridement (cm) - Depth -Total Square (Post) (cm) -Area of Debridement (cm) - Length -Area of Debridement (cm) - Width -Total Square (Area) (cm) -Tunneling -Undermining/Tunneling -Circular Undermining -Wound/Ulcer Outcome -Ulcer Cleansing -Foul Odor after Cleansing -Bioengineered Tissue -Bleeding Controlled with -Treatment Response -Offloading -Debridement - Open, 1st 20sq cm Pain Scale: 0-10 Numeric Is Patient Pain Free? Yes Yes Yes 11/17/24 10:05 Wound Center Nurse 2 lle -Time 10:05 -Correct Patient -Correct Side, Site, Position -Correct Procedure -Procedure Performed -Tunneling -Undermining/Tunneling -Circular Undermining -Ulcer Cleansing -Foul Odor after Cleansing -Bioengineered Tissue -Offloading -Wound Comment(s) #9 Left Lateral Allen -Time 10:10 -Correct Patient Yes -Correct Side, Site, Position Yes -Correct Procedure Yes -Procedure Performed Yes -Type of Procedure Debridement -Clinical Debridement Epidermis / Dermis -Tissue Removed Epidermis -Post Debridement (cm) - Length 0.2 -Post Debridement (cm) - Width 0.2 -Post Debridement (cm) - Depth 0.1 -Total Square (Post) (cm) 0.04 -Area of Debridement (cm) - Length 0.2 -Area of Debridement (cm) - Width 0.2 -Total Square (Area) (cm) 0.04 -Tunneling No -Undermining/Tunneling No -Circular Undermining No -Wound/Ulcer Outcome Not Healed -Ulcer Cleansing Not Cleansed -Foul Odor after Cleansing No -Bioengineered Tissue No -Bleeding Controlled with Pressure -Treatment Response Procedure Tolerated Well -Debridement - Open, 1st 20sq cm No #10 RT LAT LE -Time 10:11 -Correct Patient Yes -Correct Side, Site, Position Yes -Correct Procedure Yes -Procedure Performed Yes -Type of Procedure Debridement -Clinical Debridement Epidermis / Dermis -Tissue Removed Epidermis -Post Debridement (cm) - Length 0.2 -Post Debridement (cm) - Width 0.3 -Post Debridement (cm) - Depth 0.1 -Total Square (Post) (cm) 0.06 -Area of Debridement (cm) - Length 0.2 -Area of Debridement (cm) - Width 0.3 -Total Square (Area) (cm) 0.06 -Tunneling No -Undermining/Tunneling No -Circular Undermining No -Wound/Ulcer Outcome Not Healed -Ulcer Cleansing Rinsed/ Irrigated with Saline -Foul Odor after Cleansing No -Bioengineered Tissue No -Bleeding Controlled with Pressure -Treatment Response Procedure Tolerated Well -Offloading No -Debridement - Open, 1st 20sq cm Yes Pain Scale: 0-10 Numeric Is Patient Pain Free? Yes WC - Nurse 3 - General Ulcer D/C NN Start: 10/27/24 10:04 Freq: Status: Active Protocol: Activity Type Activity Date Activity User E-sign Co-sign Detail Recorded Client Recorded Date Recorded By Document 10/27/24 11:34 KW [id number] 10/27/24 11:36 KW Document 11/03/24 11:19 RB [id number] 11/03/24 11:19 RB Document 11/10/24 11:25 RB [id number] 11/10/24 11:26 RB Document 11/17/24 10:22 RB [id number] 11/17/24 10:23 RB 10/27/24 11/03/24 11/10/24 11:34 11:19 11:25 Wound Care Center Nurse 3 lle -Ulcer Cleansing Wound Cleanser -Primary Dressing Applied Optilok 8x12 Optilok 6.5x10 Optilok 6.5x10 -Primary Dressing Covered/Secured with Dry Gauze & Dry Gauze & Roll Gauze, Roll Gauze, Secured with Secured with Tape Tape -Optilok 6.5x10 1 1 -Optilok 8x12 1 #9 Left Lateral Allen -Other Dressing -Primary Dressing Covered/Secured with #10 RT LAT LE -Other Dressing -Primary Dressing Covered/Secured with BLE -Lotion applied to leg before Yes compression wrap -Multi-Layered Wrap Application Unna Boot - Bilateral -Tubular Bandage Double Layer Double Layer -Size of Tubigrip Used Size F Size F -Size F ($) 2 2 -Other USED 2 BOXES OF THE UNNA WRAP -Unna- Bilat (Qty applied) 1 Treatment Response Procedure Procedure Tolerated Well Tolerated Well Pain Scale: 0-10 Numeric Is Patient Pain Free? Yes Yes Yes WC - Visit Discharge Discharge Condition Stable Stable Stable Ambulatory Status Ambulatory, Ambulatory, Ambulatory, Walker Walker Walker Transportation Private Auto Private Auto Private Auto Accompanied by Medication Reconcilliation completed & No No No provided to patient/care provider Clinical Summary of Care Provided Yes Yes Yes 11/17/24 10:22 Wound Care Center Nurse 3 lle -Ulcer Cleansing -Primary Dressing Applied -Primary Dressing Covered/Secured with -Optilok 6.5x10 -Optilok 8x12 #9 Left Lateral Allen -Other Dressing ABD -Primary Dressing Covered/Secured with Dry Gauze & Roll Gauze, Secured with Tape #10 RT LAT LE -Other Dressing ABD -Primary Dressing Covered/Secured with Dry Gauze & Roll Gauze, Secured with Tape BLE -Lotion applied to leg before compression wrap -Multi-Layered Wrap Application -Tubular Bandage Double Layer -Size of Tubigrip Used Size F -Size F ($) 4 -Other -Unna- Bilat (Qty applied) Treatment Response Procedure Tolerated Well Pain Scale: 0-10 Numeric Is Patient Pain Free? Yes WC - Visit Discharge Discharge Condition Stable Ambulatory Status Ambulatory, Walker Transportation Private Auto Accompanied by Medication Reconcilliation completed & No provided to patient/care provider Clinical Summary of Care Provided Yes Additional Wound Wound debrided: left lateral lower leg Laterality: Left Type of Debridement: Excisional debridement Anesthesia Used: 4% Lidocaine Solution Depth: Down to and including healthy tissue and in the subcutaneous layer Percentage of wound debrided: 100 Instrument Used: 3mm curette Tissue Removed: Yellow slough, devitalized tissue Severity: Fat Layer Exposed Amount of bleeding with debridement: Mild Bleeding Controlled with: Compression and gauze Patient tolerated procedure: Patient tolerated procedure well Assessment/Plan Assessment/Plan (1) Non-pressure chronic ulcer left lower leg, limited to breakdown skin: CODE(S): L97.921 - Non-pressure chronic ulcer of unspecified part of left lower leg limited to breakdown of skin (2) Venous insufficiency: CODE(S): I87.2 - Venous insufficiency (chronic) (peripheral) (3) Edema of both lower extremities: CODE(S): R60.0 - Localized edema (4) Lymphedema: CODE(S): I89.0 - Lymphedema, not elsewhere classified (5) Essential hypertension: CODE(S): I10 - Essential (primary) hypertension (6) Morbid obesity with BMI of 45.0-49.9, adult: CODE(S): E66.01 - Morbid (severe) obesity due to excess calories; Z68.42 -Body mass index [BMI] 45.0-49.9, adult (7) Debility: CODE(S): R53.81 - Other malaise (8) Osteoarthritis: CODE(S): M19.90 - Unspecified osteoarthritis, unspecified site QUALIFIERS: Osteoarthritis location: multiple joints Osteoarthritis type: primary Qualified Code(s): M15.9 - Polyosteoarthritis, unspecified (9) COPD (chronic obstructive pulmonary disease): CODE(S): J44.9 - Chronic obstructive pulmonary disease, unspecified QUALIFIERS: COPD type: unspecified COPD Qualified Code(s): J44.9 - Chronic obstructive pulmonary disease, unspecified (10) Chronic hypoxemic respiratory failure: CODE(S): J96.11 - Chronic respiratory failure with hypoxia (11) Pulmonary hypertension: CODE(S): I27.20 - Pulmonary hypertension, unspecified (12) Hypothyroidism: CODE(S): E03.9 - Hypothyroidism, unspecified QUALIFIERS: Hypothyroidism type: unspecified Qualified Code(s): E03.9 - Hypothyroidism, unspecified (13) Type 2 diabetes mellitus: CODE(S): E11.9 - Type 2 diabetes mellitus without complications QUALIFIERS: Diabetes mellitus oil heaterman insulin use: without oil heaterman use Diabetes mellitus complication status: with other specified complication Qualified Code(s): E11.69 - Type 2 diabetes mellitus with other specified complication (14) DOLORES (obstructive sleep apnea): CODE(S): G47.33 - Obstructive sleep apnea (adult) (pediatric) (15) Cellulitis of left lower extremity: CODE(S): L03.116 - Cellulitis of left lower limb (16) Venous ulcer with fat layer exposed: CODE(S): I83.009 - Varicose veins of unspecified lower extremity with ulcer of unspecified site; L97.902 - Non-pressure chronic ulcer of unspecified part of unspecified lower leg with fat layer exposed (17) Venous stasis ulcer of right calf with fat layer exposed: CODE(S): I83.012 - Varicose veins of right lower extremity with ulcer of calf; L97.212 - Non-pressure chronic ulcer of right calf with fat layer exposed QUALIFIERS: Varicose vein presence: with varicose veins Qualified Code(s): I83.012 - Varicose veins of right lower extremity with ulcer of calf; L97.212 - Non- pressure chronic ulcer of right calf with fat layer exposed (18) Venous stasis ulcer of left calf with fat layer exposed: CODE(S): I83.022 - Varicose veins of left lower extremity with ulcer of calf; L97.222 - Non-pressure chronic ulcer of left calf with fat layer exposed QUALIFIERS: Varicose vein presence: with varicose veins Qualified Code(s): I83.022 - Varicose veins of left lower extremity with ulcer of calf; L97.222 - Non- pressure chronic ulcer of left calf with fat layer exposed PLAN: Plan Evaluation and debridement performed today in clinic as annotated above. At home wound-care instructions: Will dress both lower legs with super absorber or ABD and roll gauze changed daily for heavy drainage. She was instructed to keep dressings clean and dry. Will have her use lymphedema pumps for 60 minutes 2-3 times daily. She has been noncompliant with pumps and was encouraged to increase frequency. Also, encouraged to take diuretic daily and if edema is not improving or she is developing worse shortness of breath to come to ER as she may need IV diuresis. Off-loading: The patient was instructed to avoid pressure and friction on the affected areas. Reposition every 2 hours at minimum. Avoid prolonged standing and/or dangling of legs. When seated, feet should be elevated at chest level. Frequent ambulation is encouraged. Diet: Patient encouraged to increase protein intake while taking caution to avoid high carbohydrate and/or sugar intake. Encouraged weight loss. Labs/cultures/imaging: Wound Culture of left allen ulcer showed pseudomonas and MRSA. Ciprofloxacin prescribed. Venous ultrasound showed incompetence of veins of left lower extremity and vascular performed an ablation on 07/27/2024. Culture showed E. faecalis, anaerobic bacteria and Pseudomonas advised to restart Ciprofloxacin and Flagyl was prescribed for Anaerobic bacteria. 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 She has been referred to infectious disease and they will see her 09/27/2024. We are going to try treating her with Bactrim DS until she sees Dr. Johnson. She is tolerating this. Completed Bactrim DS. Wound culture taken 11/03/24 was positive and would like to treat her with IV gentamicin and oral Flagyl. Xray of left lower leg did not show osteomyelitis. Repeat venous testing did not show thrombosis or failure of previous venous ablation. Encouraged her to get her CPAP mask to improve DOLORES and pulmonary HTN treatment compliance which is adding to her decompensated lymphedema. Follow-up: Will have her follow up in 1 week. Return sooner or report to the emergency room should symptoms worsen, or new symptoms arise. Note: webtide speech recognition train control electronic technician software was used to create portions of this document. Sound-alike and misspelled words, as well as other train control electronic technician errors may be contained in the documentation. 11/17/24 1300 <Electronically signed by Sneha Rosa DO> Cosigner Signature (if applicable): CC: ~ Signed [facility] Work Phone: [phone] [phone] Progress note Author Sneha Roas [facility] Note Date/Time November 10, 2024 1:03p m [facility] [address] [place] [id number] Progress Note - Wound Care 11/10/24 1248 MR#: [id number] Acct: [id number] Name: LIZ WADSWORTH Rep #:[id number] : 1950 74 From: Sneha Rosa DO PCP: Dr. Luis Cortés MD Status:R EG RCR Location: History of Present Illness Date of Service: 11/10/24 Chief Complaint: Left LE ulcer, bilateral lower extremity swelling History of Wound: Liz is a pleasant 74 yo woman that presents to the wound center for bilateral lower extremity edema and blisters and drainage of her bilateral lower extremities. She has had increased edema the last 2 weeks and her legs started seeping a few days ago. She has been wearing her tubigrip compression and had been using the lymphedema pumps until they started seeping fluid. She tries to elevate her legs when she is sitting but is not always consistent with doing this. She has been wrapping her leg with gauze when it is seeping but otherwise has not been doing any regular dressings. Patient has been treated at the wound center in the past for similar wounds, most recently October 2023. She has also been seen in the vascular surgery clinic where she was evaluated her for BLE DVT and venous insufficiency. Patienthas a h/o provoked DVTs and has been off treatment with Eliquis since June 01/2023. GSV ablation has been done to her right lower leg. She has received lymphedema pumps that were ordered during her last treatment course and has beenusing these. Last venous study was 03/2022. Last A1C 01/2023 was 6.4%. Last TSH - 01/2022 Patient's medical history is also significant for CHF, COPD, T2DM, lymphedema. She has a CPAP but has not been using this due to needing a new mask. She statesthat a prescription was to be sent and she never received the mask. Her current mask has a hole in it. Subjective Subjective Liz returns today for treatment of edema to bilateral lower legs. She underwent venous ablation of left lower leg on 07/27/2024. She has been elevating her legs and using lymphedema pumps as directed. She tolerated UNNA boot treatment this past week but has had worsening of appearance of skin and of leftlateral lower leg and mild odor. She does continue to have drainage from left lateral lower leg and some increased erythema. She denies fever, chills. Wound culture last week was positive for E.coli, Enterococcus and Klebsiella andanaerobic bacteria. She has had some drainage from her right lower leg this weekas well. Objective Data Objective Data Vital Signs: Vital Signs Temp Pulse Resp BP Pulse Ox O2 Del Method 96.4 F L 82 18 144/63 H 94 Room Air 11/10/24 10:17 11/10/24 10:17 11/10/24 10:17 11/10/24 10:17 10/19/24 00:34 10/27/24 10:04 Oxygen Delivery Method Room Air Weight: 140.16 kg Body Mass Index (BMI) 49.8 Lab / Micro Data Micro: Microbiology 11/03/24 10:56 Wound - Leg, Left Gram Stain - Final 11/03/24 10:56 Wound - Leg, Left Wound Culture - Final Escherichia coli Klebsiella pneumoniae sp pneum Enterococcus faecalis 11/03/24 10:56 Wound - Leg, Left Anaerobic Culture - Final Anaerobic cocci Physical Exam Const alert, oriented x3, no apparent distress and healthy appearing General Appearance: cooperative; Negative for combative or lethargic Orientation / Consciousness: awake Exam Limitations: no limitations Nutritional Appearance: obese HEENT normocephalic and head/scalp atraumatic Eyes EOMs intact bilaterally General Eye: normal appearance of both eyes Neck full ROM General: trachea midline Lymph Lymphatic: lymphedema severe and pitting Resp normal respiratory effort and no use of accessory muscles Effort and Inspection: Negative for labored, stridor or audible wheezes Cardio regular rate and regular rhythm Back/Spine Cervical Spine: cervical ROM normal Extremity full ROM, normal capillary refill and no clubbing, cyanosis or edema General Extremity: edema bilateral lower extremity Details: severe (with skin changes associated with lymphedema, thickened nodular appearance from mid allen to ankle) Skin no rashes or lesions noted General Skin Exam: erythema, venous stasis and dermatitis Wounds: wounds noted Wound Narrative: as in clinical panel, increased erythema and light serous drainage from left lateral lower leg, nodular appearance of skin associated with lymphedema Neuro oriented x3, CN's II-XII intact bilaterally, no focal motor deficits and no sensory deficits noted Psych thought process normal, cooperative, affect normal, speech normal and activity/motor behavior normal Debridement Note Debridement Note Wound debrided: lateral left lower leg Laterality: Left No debridement was completed: No debridement was completed today (no open ulcer just skin breakdown) Post-Debridement Measurements and Additional Note: Post-Debridement Measurements/Treatment - Nurse 1 - General Ulcer Assessment Start: 10/27/24 10:04 Freq: Status: Active Protocol: KELSEY Activity Type Activity Date Activity User E-sign Co-sign Detail Recorded Client Recorded Date Recorded By Document 10/27/24 10:04 [id number] 10/27/24 10:10 Document 11/03/24 10:36 RB [id number] 11/03/24 10:38 RB Document 11/10/24 10:17 RB [id number] 11/10/24 10:19 RB 10/27/24 11/03/24 11/10/24 10:04 10:36 10:17 - Today's Visit Information Type of service Follow-up Visit Follow-up Visit Follow-up Visit (Physician/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 (Physician/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 (Physician/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 ) ) ) Arrival Mode Ambulatory, Ambulatory, Ambulatory, Wheelchair Walker Walker Transfer Assistance Manual,None None Patient Identification Verified (Name & Yes Yes Yes ) Patient Requires Transmission-Based No No No Precautions Height and Weight Body Mass Index (BMI) 49.8 49.8 49.8 BMI Classification Obese Obese Obese Vital Signs Temperature (97.8 F-99.1 F) 96.8 F L 96 F L 96.4 F L Temperature Source Temporal Temporal Temporal Pulse Rate (60-100) 79 82 Pulse Location Monitor Monitor Monitor Respiratory Rate (12-18) 19 H 18 18 Respiratory rate source Observation Observation Observation Oxygen Delivery Method Room Air Blood Pressure (90/60-120/80) 153/68 H 161/85 H 144/63 H Blood Pressure Mean (mm Hg) 96 110 90 Source Monitor Monitor Monitor Position Sitting Semi-Fowlers Sitting Blood Pressure Location Left Arm Left Arm Left Arm History Since Last Visit- (Skip if this is Patient's initial visit) Have you changed medications since your No No No last visit? Any new allergies or adverse reactions No No No Had a fall/change in ADL's that may No No No increase risk of falls Signs or symptoms of abuse and/or No No No neglect since last visit Have you been in the hospital since your No No No last visit? Has dressing in place as prescribed Yes Yes Yes Has compression in place as prescribed Yes Yes Yes Has offloadiing in place as prescribed N/A N/A N/A Experienced any changes in pain level or No No No management Left Footwear Regular Shoe Regular Shoe Right Footwear Regular Shoe Regular Shoe Pain Scale: 0-10 Numeric Is Patient Pain Free? Yes Yes Yes WC - Nurse 1 - General Ulcer Measurement Start: 10/27/24 10:04 Freq: Status: Active Protocol: Activity Type Activity Date Activity User E-sign Co-sign Detail Recorded Client Recorded Date Recorded By Document 10/27/24 10:04 [id number] 10/27/24 10:10 GM Document 11/03/24 10:36 RB [id number] 11/03/24 10:38 RB Document 11/10/24 10:17 RB [id number] 11/10/24 10:19 RB 10/27/24 11/03/24 11/10/24 10:04 10:36 10:17 Wound Center Nurse 1 lle -Combined with other wound No No -Current Size (cm) - Length 0.1 0.1 -Current Size (cm) - Width 0.1 0.1 -Current Size (cm) - Depth 0.1 0.1 -Total Square Cm 0.01 0.01 -Photo Taken No -Tunneling No No -Undermining/Tunneling No No -Circular Undermining No No -Exudate Amt Large Large -Exudate Type Serosanguineous Serosanguineous -Wound Margin Distinct, Outline Attached -Granulation Amt Large (67-100%) Large (67-100%) -Granulation Quality [place] -Slough/Fibrin Yes Yes -Necrosis Amt Small (1-33%) Small (1-33%) -Necrotic Tissue Type Adherent Slough Adherent Slough -Structure Exposed N/A N/A -Texture (Adrianna-wound Skin Appearance) Assessed Assessed, Excoriation -Moisture (Adrianna-wound Skin Appearance) Maceration Weeping -Color (Adrianna-wound Skin Appearance) Assessed Assessed -Temperature (Adrianna-wound Skin No Abnormality No Abnormality Appearance) (Pt Warm) (Pt Warm) -Tenderness on Palpation (Adrianna-wound No No Skin Appearance) -Ulcer Cleansing Wound Cleanser Wound Cleanser -Foul Odor after Cleansing No No -Anesthetic Used 5% Lidocaine 5% Lidocaine Gel Gel Lower Limb Edema Present No Yes Yes Right Calf (cm) 53.5 51.5 56 Right Ankle (cm) 31.5 28.5 30.5 Left Calf (cm) 48.0 50 53 Left Ankle (cm) 31.5 27.7 30.5 WC - Nurse 2 - General Ulcer CM Notes Start: 10/27/24 10:04 Freq: Status: Active Protocol: Activity Type Activity Date Activity User E-sign Co-sign Detail Recorded Client Recorded Date Recorded By Document 10/27/24 11:11 [id number] 10/27/24 11:11 Document 11/03/24 10:53 [id number] 11/03/24 10:58 Document 11/10/24 10:57 [id number] 11/10/24 11:05 10/27/24 11/03/24 11/10/24 11:11 10:53 10:57 Wound Center Nurse 2 lle -Time 10:57 -Correct Patient Yes Yes -Correct Side, Site, Position Yes Yes -Correct Procedure No No -Procedure Performed No No -Tunneling No -Undermining/Tunneling No -Circular Undermining No -Ulcer Cleansing Not Cleansed -Foul Odor after Cleansing No -Bioengineered Tissue No -Offloading No -Wound Comment(s) draining but not open Pain Scale: 0-10 Numeric Is Patient Pain Free? Yes Yes Yes - Nurse 3 - General Ulcer D/C NN Start: 10/27/24 10:04 Freq: Status: Active Protocol: Activity Type Activity Date Activity User E-sign Co-sign Detail Recorded Client Recorded Date Recorded By Document 10/27/24 11:34 KW [id number] 10/27/24 11:36 KW Document 11/03/24 11:19 RB [id number] 11/03/24 11:19 RB Document 11/10/24 11:25 RB [id number] 11/10/24 11:26 RB 10/27/24 11/03/24 11/10/24 11:34 11:19 11:25 Wound Care Center Nurse 3 lle -Ulcer Cleansing Wound Cleanser -Primary Dressing Applied Optilok 8x12 Optilok 6.5x10 Optilok 6.5x10 -Primary Dressing Covered/Secured with Dry Gauze & Dry Gauze & Roll Gauze, Roll Gauze, Secured with Secured with Tape Tape -Optilok 6.5x10 1 1 -Optilok 8x12 1 BLE -Lotion applied to leg before Yes compression wrap -Multi-Layered Wrap Application Unna Boot - Bilateral -Tubular Bandage Double Layer Double Layer -Size of Tubigrip Used Size F Size F -Size F ($) 2 2 -Other USED 2 BOXES OF THE UNNA WRAP -Unna- Bilat (Qty applied) 1 Treatment Response Procedure Procedure Tolerated Well Tolerated Well Pain Scale: 0-10 Numeric Is Patient Pain Free? Yes Yes Yes WC - Visit Discharge Discharge Condition Stable Stable Stable Ambulatory Status Ambulatory, Ambulatory, Ambulatory, Walker Walker Walker Transportation Private Auto Private Auto Private Auto Accompanied by Medication Reconcilliation completed & No No No provided to patient/care provider Clinical Summary of Care Provided Yes Yes Yes Assessment/Plan Assessment/Plan (1) Non-pressure chronic ulcer left lower leg, limited to breakdown skin: CODE(S): L97.921 - Non-pressure chronic ulcer of unspecified part of left lower leg limited to breakdown of skin (2) Venous insufficiency: CODE(S): I87.2 - Venous insufficiency (chronic) (peripheral) (3) Edema of both lower extremities: CODE(S): R60.0 - Localized edema (4) Lymphedema: CODE(S): I89.0 - Lymphedema, not elsewhere classified (5) Essential hypertension: CODE(S): I10 - Essential (primary) hypertension (6) Morbid obesity with BMI of 45.0-49.9, adult: CODE(S): E66.01 - Morbid (severe) obesity due to excess calories; Z68.42 -Body mass index [BMI] 45.0-49.9, adult (7) Venous stasis 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: CODE(S): I83.023 - Varicose veins of left lower extremity with ulcer of ankle; L97.321 - Non-pressure 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 QUALIFIERS: Varicose vein presence: with varicose veins Qualified Code(s): I83.023 - Varicose veins of left lower extremity with ulcer of ankle; L97.321 - Non- pressure 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 (8) Debility: CODE(S): R53.81 - Other malaise (9) Osteoarthritis: CODE(S): M19.90 - Unspecified osteoarthritis, unspecified site QUALIFIERS: Osteoarthritis location: multiple joints Osteoarthritis type: primary Qualified Code(s): M15.9 - Polyosteoarthritis, unspecified (10) COPD (chronic obstructive pulmonary disease): CODE(S): J44.9 - Chronic obstructive pulmonary disease, unspecified QUALIFIERS: COPD type: unspecified COPD Qualified Code(s): J44.9 - Chronic obstructive pulmonary disease, unspecified (11) Chronic hypoxemic respiratory failure: CODE(S): J96.11 - Chronic respiratory failure with hypoxia (12) Pulmonary hypertension: CODE(S): I27.20 - Pulmonary hypertension, unspecified (13) Hypothyroidism: CODE(S): E03.9 - Hypothyroidism, unspecified QUALIFIERS: Hypothyroidism type: unspecified Qualified Code(s): E03.9 - Hypothyroidism, unspecified (14) Type 2 diabetes mellitus: CODE(S): E11.9 - Type 2 diabetes mellitus without complications QUALIFIERS: Diabetes mellitus complication status: with other specified complication Diabetes mellitus oil heaterman insulin use: without residential use Qualified Code(s): E11.69 - Type 2 diabetes mellitus with other specified complication (15) DOLORES (obstructive sleep apnea): CODE(S): G47.33 - Obstructive sleep apnea (adult) (pediatric) (16) Cellulitis of left lower extremity: CODE(S): L03.116 - Cellulitis of left lower limb PLAN: Plan Evaluation and debridement performed today in clinic as annotated above. At home wound-care instructions: Will continue to dress her left lower leg with super absorber and roll gauze changed daily for heavy drainage. She was instructed to keep dressings clean and dry. Will have her use lymphedema pumps for 60 minutes 2-3 times daily. Off-loading: The patient was instructed to avoid pressure and friction on the affected areas. Reposition every 2 hours at minimum. Avoid prolonged standing and/or dangling of legs. When seated, feet should be elevated at chest level. Frequent ambulation is encouraged. Diet: Patient encouraged to increase protein intake while taking caution to avoid high carbohydrate and/or sugar intake. Encouraged weight loss. Labs/cultures/imaging: Wound Culture of left allen ulcer showed pseudomonas and MRSA. Ciprofloxacin prescribed. Venous ultrasound showed incompetence of veins of left lower extremity and vascular performed an ablation on 07/27/2024. Culture showed E. faecalis, anaerobic bacteria and Pseudomonas advised to restart Ciprofloxacin and Flagyl was prescribed for Anaerobic bacteria. 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 She has been referred to infectious disease and they will see her 09/27/2024. We are going to try treating her with Bactrim DS until she sees Dr. Johnson. She is tolerating this. Completed Bactrim DS. Wound culture taken 11/03/24 was positive and would like to treat her with IV gentamicin and oral Flagyl. Will check xray of left leg to evaluate for possible underlying osteomyelitis. Will also repeat venous testing to evaluate whether the vascular procedure she had a few months ago was not successful. Will try to arrange Home Health to be able to assist with in home administration of IV antibiotics. Encouraged her to get her CPAP mask to improve DOLORES and pulmonary HTN treatment compliance which is adding to her decompensated lymphedema. Follow-up: Will have her follow up in 1 week. Return sooner or report to the emergency room should symptoms worsen, or new symptoms arise. Note: webtide speech recognition train control electronic technician software was used to create portions of this document. Sound-alike and misspelled words, as well as other train control electronic technician errors may be contained in the documentation. 11/10/24 1303 <Electronically signed by Sneha Rosa DO> Cosigner Signature (if applicable): CC: ~ Signed [facility] Work Phone: [phone] [phone] Radiology Diagnostic study [facility]05-23-2025 Radiology Diagnostic study [facility]05-16-2025 Progress note Author Sneha Rosa [facility] Note Date/Time November 03, 2024 2:24p m [facility] [address] [place] [address] Progress Note - Wound Care 11/03/24 1419 MR#: [id number] Acct: [id number] Name: LIZ WADSWORTH Rep #:[id number] : 1950 74 From: Sneha Rosa DO PCP: Dr. Luis Cortés MD Status:R EG RCR Location: History of Present Illness Date of Service: 11/03/24 Chief Complaint: Left LE ulcer, bilateral lower extremity swelling History of Wound: Liz is a pleasant 74 yo woman that presents to the wound center for bilateral lower extremity edema and blisters and drainage of her bilateral lower extremities. She has had increased edema the last 2 weeks and her legs started seeping a few days ago. She has been wearing her tubigrip compression and had been using the lymphedema pumps until they started seeping fluid. She tries to elevate her legs when she is sitting but is not always consistent with doing this. She has been wrapping her leg with gauze when it is seeping but otherwise has not been doing any regular dressings. Patient has been treated at the wound center in the past for similar wounds, most recently October 2023. She has also been seen in the vascular surgery clinic where she was evaluated her for BLE DVT and venous insufficiency. Patienthas a h/o provoked DVTs and has been off treatment with Eliquis since June 01/2023. GSV ablation has been done to her right lower leg. She has received lymphedema pumps that were ordered during her last treatment course and has beenusing these. Last venous study was 03/2022. Last A1C 01/2023 was 6.4%. Last TSH - 01/2022 Patient's medical history is also significant for CHF, COPD, T2DM, lymphedema. She has a CPAP but has not been using this due to needing a new mask. She statesthat a prescription was to be sent and she never received the mask. Her current mask has a hole in it. Subjective Subjective Liz returns today for treatment of edema to bilateral lower legs. She underwent venous ablation of left lower leg on 07/27/2024. She has been elevating her legs and using lymphedema pumps as directed. She tlerated UNNA boot treatment this past week but has had worsening of appearance of skin and of leftlateral lower leg and mild odor. She does continue to have drainage from left lateral lower leg and less erythema. She denies fever, chills. Objective Data Objective Data Vital Signs: Vital Signs Temp Pulse Resp BP Pulse Ox O2 Del Method 96 F L 79 18 161/85 H 94 Room Air 11/03/24 10:36 11/03/24 10:36 11/03/24 10:36 11/03/24 10:36 10/19/24 00:34 10/27/24 10:04 Oxygen Delivery Method Room Air Weight: 140.16 kg Body Mass Index (BMI) 49.8 Physical Exam Const alert, oriented x3, no apparent distress and healthy appearing General Appearance: cooperative; Negative for combative or lethargic Orientation / Consciousness: awake Exam Limitations: no limitations Nutritional Appearance: obese HEENT normocephalic and head/scalp atraumatic Eyes EOMs intact bilaterally General Eye: normal appearance of both eyes Neck full ROM General: trachea midline Lymph Lymphatic: lymphedema severe and pitting Resp normal respiratory effort and no use of accessory muscles Effort and Inspection: Negative for labored, stridor or audible wheezes Cardio regular rate and regular rhythm Back/Spine Cervical Spine: cervical ROM normal Extremity full ROM, normal capillary refill and no clubbing, cyanosis or edema General Extremity: edema bilateral lower extremity Details: severe (with skin changes associated with lymphedema, thickened nodular appearance from mid allen to ankle) Skin no rashes or lesions noted General Skin Exam: erythema, venous stasis and dermatitis Wounds: wounds noted Wound Narrative: as in clinical panel, mildly decreased erythema and light serous drainage from left lateral lower leg, nodular appearance of skin associated with lymphedema Neuro oriented x3, CN's II-XII intact bilaterally, no focal motor deficits and no sensory deficits noted Psych thought process normal, cooperative, affect normal, speech normal and activity/motor behavior normal Debridement Note Debridement Note Wound debrided: lateral left lower leg Laterality: Left No debridement was completed: No debridement was completed today Post-Debridement Measurements and Additional Note: Post-Debridement Measurements/Treatment - Nurse 1 - General Ulcer Assessment Start: 10/27/24 10:04 Freq: Status: Active Protocol: [email or web address] Activity Type Activity Date Activity User E-sign Co-sign Detail Recorded Client Recorded Date Recorded By Document 10/27/24 10:04 [id number] 10/27/24 10:10 Document 11/03/24 10:36 RB [id number] 11/03/24 10:38 RB 10/27/24 11/03/24 10:04 10:36 - Today's Visit Information Type of service Follow-up Visit Follow-up Visit (Physician/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 (Physician/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 ) ) Arrival Mode Ambulatory, Ambulatory, Wheelchair Walker Transfer Assistance Manual,None Patient Identification Verified (Name & Yes Yes ) Patient Requires Transmission-Based No No Precautions Height and Weight Body Mass Index (BMI) 49.8 49.8 BMI Classification Obese Obese Vital Signs Temperature (97.8 F-99.1 F) 96.8 F L 96 F L Temperature Source Temporal Temporal Pulse Rate (60-100) 79 Pulse Location Monitor Monitor Respiratory Rate (12-18) 19 H 18 Respiratory rate source Observation Observation Oxygen Delivery Method Room Air Blood Pressure (90/60-120/80) 153/68 H 161/85 H Blood Pressure Mean (mm Hg) 96 110 Source Monitor Monitor Position Sitting Semi-Fowlers Blood Pressure Location Left Arm Left Arm History Since Last Visit- (Skip if this is Patient's initial visit) Have you changed medications since your No No last visit? Any new allergies or adverse reactions No No Had a fall/change in ADL's that may No No increase risk of falls Signs or symptoms of abuse and/or No No neglect since last visit Have you been in the hospital since your No No last visit? Has dressing in place as prescribed Yes Yes Has compression in place as prescribed Yes Yes Has offloadiing in place as prescribed N/A N/A Experienced any changes in pain level or No No management Left Footwear Regular Shoe Right Footwear Regular Shoe Pain Scale: 0-10 Numeric Is Patient Pain Free? Yes Yes WC - Nurse 1 - General Ulcer Measurement Start: 10/27/24 10:04 Freq: Status: Active Protocol: Activity Type Activity Date Activity User E-sign Co-sign Detail Recorded Client Recorded Date Recorded By Document 10/27/24 10:04 [id number] 10/27/24 10:10 GM Document 11/03/24 10:36 RB [id number] 11/03/24 10:38 RB 10/27/24 11/03/24 10:04 10:36 Wound Center Nurse 1 lle -Combined with other wound No -Current Size (cm) - Length 0.1 -Current Size (cm) - Width 0.1 -Current Size (cm) - Depth 0.1 -Total Square Cm 0.01 -Photo Taken No -Tunneling No -Undermining/Tunneling No -Circular Undermining No -Exudate Amt Large -Exudate Type Serosanguineous -Wound Margin Distinct, Outline Attached -Granulation Amt Large (67-100%) -Granulation Quality [place] -Slough/Fibrin Yes -Necrosis Amt Small (1-33%) -Necrotic Tissue Type Adherent Slough -Structure Exposed N/A -Texture (Adrianna-wound Skin Appearance) Assessed -Moisture (Adrianna-wound Skin Appearance) Maceration -Color (Adrianna-wound Skin Appearance) Assessed -Temperature (Adrianna-wound Skin No Abnormality Appearance) (Pt Warm) -Tenderness on Palpation (Adrianna-wound No Skin Appearance) -Ulcer Cleansing Wound Cleanser -Foul Odor after Cleansing No -Anesthetic Used 5% Lidocaine Gel Lower Limb Edema Present No Yes Right Calf (cm) 53.5 51.5 Right Ankle (cm) 31.5 28.5 Left Calf (cm) 48.0 50 Left Ankle (cm) 31.5 27.7 WC - Nurse 2 - General Ulcer CM Notes Start: 10/27/24 10:04 Freq: Status: Active Protocol: Activity Type Activity Date Activity User E-sign Co-sign Detail Recorded Client Recorded Date Recorded By Document 10/27/24 11:11 [id number] 10/27/24 11:11 Document 11/03/24 10:53 [id number] 11/03/24 10:58 10/27/24 11/03/24 11:11 10:53 Wound Center Nurse 2 lle -Correct Patient Yes -Correct Side, Site, Position Yes -Correct Procedure No -Procedure Performed No -Wound Comment(s) draining but not open Pain Scale: 0-10 Numeric Is Patient Pain Free? Yes Yes - Nurse 3 - General Ulcer D/C NN Start: 10/27/24 10:04 Freq: Status: Active Protocol: Activity Type Activity Date Activity User E-sign Co-sign Detail Recorded Client Recorded Date Recorded By Document 10/27/24 11:34 KW [id number] 10/27/24 11:36 KW Document 11/03/24 11:19 RB [id number] 11/03/24 11:19 RB 10/27/24 11/03/24 11:34 11:19 Wound Care Center Nurse 3 lle -Primary Dressing Applied Optilok 8x12 Optilok 6.5x10 -Primary Dressing Covered/Secured with Dry Gauze & Roll Gauze, Secured with Tape -Optilok 6.5x10 1 -Optilok 8x12 1 BLE -Multi-Layered Wrap Application Unna Boot - Bilateral -Tubular Bandage Double Layer -Size of Tubigrip Used Size F -Size F ($) 2 -Other USED 2 BOXES OF THE UNNA WRAP -Unna- Bilat (Qty applied) 1 Treatment Response Procedure Tolerated Well Pain Scale: 0-10 Numeric Is Patient Pain Free? Yes Yes - Visit Discharge Discharge Condition Stable Stable Ambulatory Status Ambulatory, Ambulatory, Walker Walker Transportation Private Auto Private Auto Accompanied by Medication Reconcilliation completed & No No provided to patient/care provider Clinical Summary of Care Provided Yes Yes Assessment/Plan Assessment/Plan (1) Non-pressure chronic ulcer left lower leg, limited to breakdown skin: CODE(S): L97.921 - Non-pressure chronic ulcer of unspecified part of left lower leg limited to breakdown of skin (2) Venous insufficiency: CODE(S): I87.2 - Venous insufficiency (chronic) (peripheral) (3) Edema of both lower extremities: CODE(S): R60.0 - Localized edema (4) Lymphedema: CODE(S): I89.0 - Lymphedema, not elsewhere classified (5) Essential hypertension: CODE(S): I10 - Essential (primary) hypertension (6) Morbid obesity with BMI of 45.0-49.9, adult: CODE(S): E66.01 - Morbid (severe) obesity due to excess calories; Z68.42 -Body mass index [BMI] 45.0-49.9, adult (7) Venous stasis 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: CODE(S): I83.023 - Varicose veins of left lower extremity with ulcer of ankle; L97.321 - Non-pressure 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 QUALIFIERS: Varicose vein presence: with varicose veins Qualified Code(s): I83.023 - Varicose veins of left lower extremity with ulcer of ankle; L97.321 - Non- pressure 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 (8) Debility: CODE(S): R53.81 - Other malaise (9) Osteoarthritis: CODE(S): M19.90 - Unspecified osteoarthritis, unspecified site QUALIFIERS: Osteoarthritis location: multiple joints Osteoarthritis type: primary Qualified Code(s): M15.9 - Polyosteoarthritis, unspecified (10) COPD (chronic obstructive pulmonary disease): CODE(S): J44.9 - Chronic obstructive pulmonary disease, unspecified QUALIFIERS: COPD type: unspecified COPD Qualified Code(s): J44.9 - Chronic obstructive pulmonary disease, unspecified (11) Chronic hypoxemic respiratory failure: CODE(S): J96.11 - Chronic respiratory failure with hypoxia (12) Pulmonary hypertension: CODE(S): I27.20 - Pulmonary hypertension, unspecified (13) Hypothyroidism: CODE(S): E03.9 - Hypothyroidism, unspecified QUALIFIERS: Hypothyroidism type: unspecified Qualified Code(s): E03.9 - Hypothyroidism, unspecified (14) Type 2 diabetes mellitus: CODE(S): E11.9 - Type 2 diabetes mellitus without complications QUALIFIERS: Diabetes mellitus oil heaterman insulin use: without oil heaterman use Diabetes mellitus complication status: with other specified complication Qualified Code(s): E11.69 - Type 2 diabetes mellitus with other specified complication (15) DOLORES (obstructive sleep apnea): CODE(S): G47.33 - Obstructive sleep apnea (adult) (pediatric) PLAN: Plan Evaluation and debridement performed today in clinic as annotated above. At home wound-care instructions: Will continue to dress her left lower leg with super absorber and roll gauze changed daily for heavy drainage. She was instructed to keep dressings clean and dry. Will have her use lymphedema pumps for 60 minutes 2-3 times daily. Off-loading: The patient was instructed to avoid pressure and friction on the affected areas. Reposition every 2 hours at minimum. Avoid prolonged standing and/or dangling of legs. When seated, feet should be elevated at chest level. Frequent ambulation is encouraged. Diet: Patient encouraged to increase protein intake while taking caution to avoid high carbohydrate and/or sugar intake. Encouraged weight loss. Labs/cultures/imaging: Wound Culture of left allen ulcer showed pseudomonas and MRSA. Ciprofloxacin prescribed. Venous ultrasound showed incompetence of veins of left lower extremity and vascular performed an ablation on 07/27/2024. Culture showed E. faecalis, anaerobic bacteria and Pseudomonas advised to restart Ciprofloxacin and Flagyl was prescribed for Anaerobic bacteria. 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 She has been referred to infectious disease and they will see her 09/27/2024. We are going to try treating her with Bactrim DS until she sees Dr. Johnson. She is tolerating this. Completed Bactrim DS. Wound culture taken again today and will consider IV antibiotic treatment. Will check xray of left leg to evaluate for possible underlying osteomyelitis. Will also repeat venous testing to evaluate whether the vascular procedure she had a few months ago was not successful. Encouraged her to get her CPAP mask to improve DOLORES and pulmonary HTN treatment compliance which is adding to her decompensated lymphedema. Follow-up: Will have her follow up in 1 weeks. Return sooner or report to the emergency room should symptoms worsen, or new symptoms arise. Note: webtide speech recognition train control electronic technician software was used to create portions of this document. Sound-alike and misspelled words, as well as other train control electronic technician errors may be contained in the documentation. 11/03/24 1424 <Electronically signed by Sneha Rosa DO> Cosigner Signature (if applicable): CC: ~ Signed [facility] Work Phone: [phone] 147-918905-16-2025 Progress note Author Sneha Rosa [facility] Note Date/Time November 03, 2024 9:10a m [facility] [address] [place] [address] Progress Note - Wound Care 10/27/24 1534 MR#: [id number] Acct: [id number] Name: LIZ WADSWORTH Rep #:[id number] : 1950 74 From: Sneha Rosa DO PCP: Dr. Luis Cortés MD Status:R EG RCR Location: History of Present Illness Date of Service: 10/27/24 Chief Complaint: Left LE ulcer, bilateral lower extremity swelling History of Wound: Liz is a pleasant 74 yo woman that presents to the wound center for bilateral lower extremity edema and blisters and drainage of her bilateral lower extremities. She has had increased edema the last 2 weeks and her legs started seeping a few days ago. She has been wearing her tubigrip compression and had been using the lymphedema pumps until they started seeping fluid. She tries to elevate her legs when she is sitting but is not always consistent with doing this. She has been wrapping her leg with gauze when it is seeping but otherwise has not been doing any regular dressings. Patient has been treated at the wound center in the past for similar wounds, most recently October 2023. She has also been seen in the vascular surgery clinic where she was evaluated her for BLE DVT and venous insufficiency. Patienthas a h/o provoked DVTs and has been off treatment with Eliquis since June 01/2023. GSV ablation has been done to her right lower leg. She has received lymphedema pumps that were ordered during her last treatment course and has beenusing these. Last venous study was 03/2022. Last A1C 01/2023 was 6.4%. Last TSH - 01/2022 Patient's medical history is also significant for CHF, COPD, T2DM, lymphedema. She has a CPAP but has not been using this due to needing a new mask. She statesthat a prescription was to be sent and she never received the mask. Her current mask has a hole in it. Subjective Subjective Liz returns today for treatment of edema to bilateral lower legs. She underwent venous ablation of left lower leg on 07/27/2024. She has been elevating her legs and using lymphedema pumps as directed. She is tolerating Superabsorber for heavy drainage. She does continue to have drainage from left lateral lower leg and less erythema. She denies fever, chills. Objective Data Objective Data Vital Signs: Vital Signs Temp Pulse Resp BP Pulse Ox O2 Del Method 96.8 F L 69 19 H 153/68 H 94 Room Air 10/27/24 10:04 10/19/24 00:34 10/27/24 10:04 10/27/24 10:04 10/19/24 00:34 10/27/24 10:04 Oxygen Delivery Method Room Air Weight: 140.16 kg Body Mass Index (BMI) 49.8 Physical Exam Const alert, oriented x3, no apparent distress and healthy appearing General Appearance: cooperative; Negative for combative or lethargic Orientation / Consciousness: awake Exam Limitations: no limitations Nutritional Appearance: obese HEENT normocephalic and head/scalp atraumatic Eyes EOMs intact bilaterally General Eye: normal appearance of both eyes Neck full ROM General: trachea midline Lymph Lymphatic: lymphedema severe and pitting Resp normal respiratory effort and no use of accessory muscles Effort and Inspection: Negative for labored, stridor or audible wheezes Cardio regular rate and regular rhythm Back/Spine Cervical Spine: cervical ROM normal Extremity full ROM, normal capillary refill and no clubbing, cyanosis or edema General Extremity: edema bilateral lower extremity Details: severe (with skin changes associated with lymphedema, thickened nodular appearance from mid allen to ankle) Skin no rashes or lesions noted General Skin Exam: erythema, venous stasis and dermatitis Wounds: wounds noted Wound Narrative: as in clinical panel, mildly decreased erythema and light serous drainage from lateral lower leg, nodular appearance of skin associated with lymphedema Neuro oriented x3, CN's II-XII intact bilaterally, no focal motor deficits and no sensory deficits noted Psych thought process normal, cooperative, affect normal, speech normal and activity/motor behavior normal Debridement Note Debridement Note Wound debrided: left lateral leg Laterality: Left Type of Debridement: Selective debridement Anesthesia Used: 4% Lidocaine Solution Depth: Down to and including healthy tissue Instrument Used: - (gauze) Tissue Removed: Yellow slough, devitalized tissue Severity: Fat Layer Exposed Amount of bleeding with debridement: Mild Bleeding Controlled with: Compression and gauze Patient tolerated procedure: Patient tolerated procedure well Post-Debridement Measurements and Additional Note: Post-Debridement Measurements/Treatment JESÚS - Nurse 1 - General Ulcer Assessment Start: 10/27/24 10:04 Freq: Status: Active Protocol: KELSEY Activity Type Activity Date Activity User E-sign Co-sign Detail Recorded Client Recorded Date Recorded By Document 10/27/24 10:04 [id number] 10/27/24 10:10 10/27/24 10:04 WC - Today's Visit Information Type of service Follow-up Visit (Physician/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 ) Arrival Mode Ambulatory, Wheelchair Patient Identification Verified (Name & Yes ) Patient Requires Transmission-Based No Precautions Height and Weight Body Mass Index (BMI) 49.8 BMI Classification Obese Vital Signs Temperature (97.8 F-99.1 F) 96.8 F L Temperature Source Temporal Pulse Location Monitor Respiratory Rate (12-18) 19 H Respiratory rate source Observation Oxygen Delivery Method Room Air Blood Pressure (90/60-120/80) 153/68 H Blood Pressure Mean (mm Hg) 96 Source Monitor Position Sitting Blood Pressure Location Left Arm History Since Last Visit- (Skip if this is Patient's initial visit) Have you changed medications since your No last visit? Any new allergies or adverse reactions No Had a fall/change in ADL's that may No increase risk of falls Signs or symptoms of abuse and/or No neglect since last visit Have you been in the hospital since your No last visit? Has dressing in place as prescribed Yes Has compression in place as prescribed Yes Has offloadiing in place as prescribed N/A Experienced any changes in pain level or No management Left Footwear Regular Shoe Right Footwear Regular Shoe Pain Scale: 0-10 Numeric Is Patient Pain Free? Yes - Nurse 1 - General Ulcer Measurement Start: 10/27/24 10:04 Freq: Status: Active Protocol: Activity Type Activity Date Activity User E-sign Co-sign Detail Recorded Client Recorded Date Recorded By Document 10/27/24 10:04 [id number] 10/27/24 10:10 10/27/24 10:04 Wound Center Nurse 1 Lower Limb Edema Present No Right Calf (cm) 53.5 Right Ankle (cm) 31.5 Left Calf (cm) 48.0 Left Ankle (cm) 31.5 [id number] - Nurse 2 - General Ulcer CM Notes Start: 10/27/24 10:04 Freq: Status: Active Protocol: Activity Type Activity Date Activity User E-sign Co-sign Detail Recorded Client Recorded Date Recorded By Document 10/27/24 11:11 GM [id number] 10/27/24 11:11 10/27/24 11:11 Pain Scale: 0-10 Numeric Is Patient Pain Free? Yes - Nurse 3 - General Ulcer D/C NN Start: 10/27/24 10:04 Freq: Status: Active Protocol: Activity Type Activity Date Activity User E-sign Co-sign Detail Recorded Client Recorded Date Recorded By Document 10/27/24 11:34 KW [id number] 10/27/24 11:36 KW 10/27/24 11:34 Wound Care Center Nurse 3 lle -Primary Dressing Applied Optilok 8x12 -Optilok 8x12 1 BLE -Multi-Layered Wrap Application Unna Boot - Bilateral -Other USED 2 BOXES OF THE UNNA WRAP -Unna- Bilat (Qty applied) 1 Pain Scale: 0-10 Numeric Is Patient Pain Free? Yes WC - Visit Discharge Discharge Condition Stable Ambulatory Status Ambulatory, Walker Transportation Private Auto Medication Reconcilliation completed & No provided to patient/care provider Clinical Summary of Care Provided Yes Assessment/Plan Assessment/Plan (1) Non-pressure chronic ulcer left lower leg, limited to breakdown skin: CODE(S): L97.921 - Non-pressure chronic ulcer of unspecified part of left lower leg limited to breakdown of skin (2) Venous insufficiency: CODE(S): I87.2 - Venous insufficiency (chronic) (peripheral) (3) Edema of both lower extremities: CODE(S): R60.0 - Localized edema (4) Lymphedema: CODE(S): I89.0 - Lymphedema, not elsewhere classified (5) Essential hypertension: CODE(S): I10 - Essential (primary) hypertension (6) Morbid obesity with BMI of 45.0-49.9, adult: CODE(S): E66.01 - Morbid (severe) obesity due to excess calories; Z68.42 -Body mass index [BMI] 45.0-49.9, adult (7) Venous stasis 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: CODE(S): I83.023 - Varicose veins of left lower extremity with ulcer of ankle; L97.321 - Non-pressure 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 QUALIFIERS: Varicose vein presence: with varicose veins Qualified Code(s): I83.023 - Varicose veins of left lower extremity with ulcer of ankle; L97.321 - Non- pressure 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 (8) Debility: CODE(S): R53.81 - Other malaise (9) Osteoarthritis: CODE(S): M19.90 - Unspecified osteoarthritis, unspecified site QUALIFIERS: Osteoarthritis location: multiple joints Osteoarthritis type: primary Qualified Code(s): M15.9 - Polyosteoarthritis, unspecified (10) COPD (chronic obstructive pulmonary disease): CODE(S): J44.9 - Chronic obstructive pulmonary disease, unspecified QUALIFIERS: COPD type: unspecified COPD Qualified Code(s): J44.9 - Chronic obstructive pulmonary disease, unspecified (11) Chronic hypoxemic respiratory failure: CODE(S): J96.11 - Chronic respiratory failure with hypoxia (12) Pulmonary hypertension: CODE(S): I27.20 - Pulmonary hypertension, unspecified (13) Hypothyroidism: CODE(S): E03.9 - Hypothyroidism, unspecified QUALIFIERS: Hypothyroidism type: unspecified Qualified Code(s): E03.9 - Hypothyroidism, unspecified (14) Type 2 diabetes mellitus: CODE(S): E11.9 - Type 2 diabetes mellitus without complications QUALIFIERS: Diabetes mellitus oil heaterman insulin use: without residential use Diabetes mellitus complication status: with other specified complication Qualified Code(s): E11.69 - Type 2 diabetes mellitus with other specified complication (15) DOLORES (obstructive sleep apnea): CODE(S): G47.33 - Obstructive sleep apnea (adult) (pediatric) PLAN: Plan Evaluation and debridement performed today in clinic as annotated above. At home wound-care instructions: Will continue to dress her left lower leg with super absorber and roll gauze changed daily for heavy drainage. She was instructed to keep dressings clean and dry. Will have her use lymphedema pumps for 60 minutes 2-3 times daily. Off-loading: The patient was instructed to avoid pressure and friction on the affected areas. Reposition every 2 hours at minimum. Avoid prolonged standing and/or dangling of legs. When seated, feet should be elevated at chest level. Frequent ambulation is encouraged. Diet: Patient encouraged to increase protein intake while taking caution to avoid high carbohydrate and/or sugar intake. Encouraged weight loss. Labs/cultures/imaging: Wound Culture of left allen ulcer showed pseudomonas and MRSA. Ciprofloxacin prescribed. Venous ultrasound showed incompetence of veins of left lower extremity and vascular performed an ablation on 07/27/2024. Culture showed E. faecalis, anaerobic bacteria and Pseudomonas advised to restart Ciprofloxacin and Flagyl was prescribed for Anaerobic bacteria. 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 She has been referred to infectious disease and they will see her 09/27/2024. We are going to try treating her with Bactrim DS until she sees Dr. Johnson. She is tolerating this. Will complete Bactrim DS. Encouraged her to get her CPAP mask to improve DOLORES and pulmonary HTN treatment compliance which is adding to her decompensated lymphedema. Follow-up: Will have her follow up in 2 weeks. Return sooner or report to the emergency room should symptoms worsen, or new symptoms arise. Note: webtide speech recognition train control electronic technician software was used to create portions of this document. Sound-alike and misspelled words, as well as other train control electronic technician errors may be contained in the documentation. 11/03/24 0910 <Electronically signed by Sneha Rosa DO> Cosigner Signature (if applicable): CC: ~ Signed 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 A pril 2024 1:26pm Morbid obesity with BMI of 45.0-49.9, adult chronic October 18 1:26pm DOLORES (obstructive sleep apnea) chroni c October 18, 2024 1:26pm Pulmonary hypertension chronic Ap ril 2024 1:26pm Essential hypertension chronic Ma y 2024 10:35am Hypothyroidism chronic November 06, 2024 10:35am Insomnia chronic November 06, 2024 10:35am Cellulitis of left lower extremity acute November 17, 2024 1 0:15am 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, limited to breakdown skin acute November 17, 2024 1 0:15am Venous stasis 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 acute November 17, 2024 1 0:15am Venous stasis ulcer of left calf with fat layer exposed acute November 17, 2024 10:15am Venous stasis ulcer of right calf with fat layer exposed acute November 17, 2024 10:15am Venous ulcer with fat layer exposed acute November 17, 2024 1 0:15am Chronic hypoxemic respirator y failure chronic November 17, 2024 1 0:15am COPD (chronic obstructive pulmonary disease) chronic November 17 10:15am Debility chronic November 17, 2024 10:15am Edema of both lower extremities 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 November 17, 2024 10:15am Essential hypertension chronic Ma 2024 10:15am Hypothyroidism chronic November 17, 2024 10:15am Lymphedema chronic November 17, 2024 10:15am Morbid obesity with BMI of 45.0-49.9, adult chronic November 17, 2024 10:15am DOLORES (obstructive sleep apnea) chroni c November 17, 2024 10:15am Osteoarthritis chronic November 17, 2024 10:15am Pulmonary hypertension chronic Ma y 2024 10:15am Type 2 diabetes mellitus chronic November 17, 2024 10:15am Venous insufficiency chronic November 17, 2024 10:15am Rhinosinusitis acute December 07, 2024 12:32pm Vertigo chronic December 07 12:32pm Cellulitis of left lower extremity acute December 15, 2024 10:15am 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, limited to breakdown skin acute December 15, 2024 10:15am Venous stasis ulcer of left calf with fat layer exposed acute November 10:15am Venous stasis ulcer of right calf with fat layer exposed acute December 15, 2024 10:15am Venous ulcer with fat layer exposed acute December 15, 2024 10:15am Chronic hypoxemic respirator y failure chronic December 15, 2024 10:15am COPD (chronic obstructive pulmonary disease) chronic December 15 10:15am Debility chronic December 15 10:15am Edema of both lower extremities 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 December 15, 2024 10:15am Essential hypertension chronic Ju ne 2024 10:15am Hypothyroidism chronic December 15, 2024 10:15am Lymphedema chronic December 15 10:15am Morbid obesity with BMI of 45.0-49.9, adult chronic December 15, 2024 10:15am DOLORES (obstructive sleep apnea) chroni c December 15, 2024 10:15am Osteoarthritis chronic December 15, 2024 10:15am Pulmonary hypertension chronic Ju ne 2024 10:15am Type 2 diabetes mellitus chronic December 15, 2024 10:15am Venous insufficiency chronic December 15, 2024 10:15am Cellulitis of left lower extremity acute January 12, 2025 10:45am 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, limited to breakdown skin acute January 12, 2025 10:45am Venous stasis ulcer of left calf with fat layer exposed acute December 10:45am Venous stasis ulcer of right calf with fat layer exposed acute January 12, 2025 10:45am Venous ulcer with fat layer exposed acute January 12, 2025 10:45am Chronic hypoxemic respirator y failure chronic January 12, 2025 10:45am COPD (chronic obstructive pulmonary disease) chronic January 12 10:45am Debility chronic January 12 10:45am Edema of both lower extremities 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 January 12, 2025 10:45am Essential hypertension chronic Ju ly 2024 10:45am Hypothyroidism chronic January 12, 2025 10:45am Lymphedema chronic January 12 10:45am Morbid obesity with BMI of 45.0-49.9, adult chronic January 12, 2025 10:45am DOLORES (obstructive sleep apnea) chroni c January 12, 2025 10:45am Osteoarthritis chronic January 12, 2025 10:45am Pulmonary hypertension chronic Ju ly 2024 10:45am Type 2 diabetes mellitus chronic January 12, 2025 10:45am Venous insufficiency chronic January 12, 2025 10:45am Cellulitis of left lower extremity acute January 19, 2025 10:13am 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, limited to breakdown skin acute January 19, 2025 10:13am Venous stasis ulcer of left calf with fat layer exposed acute January 10:13am Venous stasis ulcer of right calf with fat layer exposed acute 2024 10:13am Venous ulcer with fat layer exposed acute January 19, 2025 10:13am Chronic hypoxemic respirator y failure chronic January 19, 2025 10:13am COPD (chronic obstructive pulmonary disease) chronic January 19 025 10:13am Debility chronic January 19 10:13am Edema of both lower extremities 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 January 19, 2025 10:13am Essential hypertension chronic iraida 2024 10:13am Hypothyroidism chronic January 10:13am Lymphedema chronic January 19 10:13am Morbid obesity with BMI of 45.0-49.9, adult chronic January 19 10:13am DOLORES (obstructive sleep apnea) chroni c January 19, 2025 10:13am Osteoarthritis chronic January 10:13am Pulmonary hypertension chronic [facility] 2024 10:13am Type 2 diabetes mellitus chronic January 19, 2025 10:13am Venous insufficiency chronic 2024 10:13am Dizziness acute January 19 12:51pm Iron deficiency acute January 12:51pm Vitamin D deficiency acute 2024 12:51pm Vitamin D deficiency acute 2024 1:24pm COPD (chronic obstructive pulmonary disease) chronic February 07, 2025 1:24pm Elevated blood uric acid level chron ic February 07, 2025 1:24pm Essential hypertension chronic [facility] 2024 1:24pm Hypothyroidism chronic January 1:24pm Type 2 diabetes mellitus chronic February 07, 2025 1:24pm Vertigo chronic February 07, 025 1:24pm Dizziness acute February 15 025 2:50pm Essential hypertension chronic [facility] 2024 2:50pm Hyperlipidemia chronic January 2:50pm Palpitations chronic 2025 2:50pm [facility] Work Phone: 1(982) 915-630404-25-2025 Evaluation note* Diagnosis Onset Date Resolution Status Admit Date 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, limited to breakdown skin acute October 13, 2024 10:00am Venous stasis 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 acute October 13, 2024 10:00am Chronic hypoxemic respirator y failure chronic October 13, 2024 10:00am COPD (chronic obstructive pulmonary disease) chronic Joan 25th, 2 025 10:00am Debility chronic October 13 10:00am Edema of both lower extremities 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 October 13, 2024 10:00am Essential hypertension chronic Ap ril 2024 10:00am Hypothyroidism chronic September 10:00am Lymphedema chronic October 13 10:00am Morbid obesity with BMI of 45.0-49.9, adult chronic October 13 10:00am DOLORES (obstructive sleep apnea) chroni c October 13, 2024 10:00am Osteoarthritis chronic September 10:00am Pulmonary hypertension chronic Ap ril 2024 10:00am Type 2 diabetes mellitus chronic October 13, 2024 10:00am Venous insufficiency chronic Apri l 2024 10:00am 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 A pril 2024 1:26pm Morbid obesity with BMI of 45.0-49.9, adult chronic October 18 1:26pm DOLORES (obstructive sleep apnea) chroni c October 18, 2024 1:26pm Pulmonary hypertension chronic Ap ril 2024 1:26pm Essential hypertension chronic Ma y 2024 10:35am Hypothyroidism chronic November 06, 2024 10:35am Insomnia chronic November 06, 2024 10:35am Cellulitis of left lower extremity acute November 17, 2024 1 0:15am 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, limited to breakdown skin acute November 17, 2024 1 0:15am Venous stasis 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 acute November 17, 2024 1 0:15am Venous stasis ulcer of left calf with fat layer exposed acute November 17, 2024 10:15am Venous stasis ulcer of right calf with fat layer exposed acute November 17, 2024 10:15am Venous ulcer with fat layer exposed acute November 17, 2024 1 0:15am Chronic hypoxemic respirator y failure chronic November 17, 2024 1 0:15am COPD (chronic obstructive pulmonary disease) chronic November 17 10:15am Debility chronic November 17, 2024 10:15am Edema of both lower extremities 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 November 17, 2024 10:15am Essential hypertension chronic Ma y 2024 10:15am Hypothyroidism chronic November 17, 2024 10:15am Lymphedema chronic November 17, 2024 10:15am Morbid obesity with BMI of 45.0-49.9, adult chronic November 17, 2024 10:15am DOLORES (obstructive sleep apnea) chroni c November 17, 2024 10:15am Osteoarthritis chronic November 17, 2024 10:15am Pulmonary hypertension chronic Ma y 2024 10:15am Type 2 diabetes mellitus chronic November 17, 2024 10:15am Venous insufficiency chronic November 17, 2024 10:15am Rhinosinusitis acute December 07, 2024 12:32pm Vertigo acute December 07 12:32pm Cellulitis of left lower extremity acute December 15, 2024 10:15am 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, limited to breakdown skin acute December 15, 2024 10:15am Venous stasis ulcer of left calf with fat layer exposed acute November 10:15am Venous stasis ulcer of right calf with fat layer exposed acute December 15, 2024 10:15am Venous ulcer with fat layer exposed acute December 15, 2024 10:15am Chronic hypoxemic respirator y failure chronic December 15, 2024 10:15am COPD (chronic obstructive pulmonary disease) chronic December 15 10:15am Debility chronic December 15 10:15am Edema of both lower extremities 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 December 15, 2024 10:15am Essential hypertension chronic Ju 2024 10:15am Hypothyroidism chronic December 15, 2024 10:15am Lymphedema chronic December 15 10:15am Morbid obesity with BMI of 45.0-49.9, adult chronic December 15, 2024 10:15am DOLORES (obstructive sleep apnea) chroni c December 15, 2024 10:15am Osteoarthritis chronic December 15, 2024 10:15am Pulmonary hypertension chronic Ju ne 2024 10:15am Type 2 diabetes mellitus chronic December 15, 2024 10:15am Venous insufficiency chronic December 15, 2024 10:15am Cellulitis of left lower extremity acute January 12, 2025 10:45am 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, limited to breakdown skin acute January 12, 2025 10:45am Venous stasis ulcer of left calf with fat layer exposed acute December 10:45am Venous stasis ulcer of right calf with fat layer exposed acute January 12, 2025 10:45am Venous ulcer with fat layer exposed acute January 12, 2025 10:45am Chronic hypoxemic respirator y failure chronic January 12, 2025 10:45am COPD (chronic obstructive pulmonary disease) chronic January 12 10:45am Debility chronic January 12 10:45am Edema of both lower extremities 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 January 12, 2025 10:45am Essential hypertension chronic Ju ly 2024 10:45am Hypothyroidism chronic January 12, 2025 10:45am Lymphedema chronic January 12 10:45am Morbid obesity with BMI of 45.0-49.9, adult chronic January 12, 2025 10:45am DOLORES (obstructive sleep apnea) chroni c January 12, 2025 10:45am Osteoarthritis chronic January 12, 2025 10:45am Pulmonary hypertension chronic ly 2024 10:45am Type 2 diabetes mellitus chronic January 12, 2025 10:45am Venous insufficiency chronic January 12, 2025 10:45am Cellulitis of left lower extremity acute January 19, 2025 10:13am 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, limited to breakdown skin acute January 19, 2025 10:13am Venous stasis ulcer of left calf with fat layer exposed acute January 10:13am Venous stasis ulcer of right calf with fat layer exposed acute 2024 10:13am Venous ulcer with fat layer exposed acute January 19, 2025 10:13am Chronic hypoxemic respirator y failure chronic January 19, 2025 10:13am COPD (chronic obstructive pulmonary disease) chronic January 19, 025 10:13am Debility chronic January 19 10:13am Edema of both lower extremities 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 January 19, 2025 10:13am Essential hypertension chronic Au iraida 2024 10:13am Hypothyroidism chronic January 10:13am Lymphedema chronic January 19 10:13am Morbid obesity with BMI of 45.0-49.9, adult chronic January 19 10:13am DOLORES (obstructive sleep apnea) chroni c January 19, 2025 10:13am Osteoarthritis chronic January 10:13am Pulmonary hypertension chronic Au iraida 2024 10:13am Type 2 diabetes mellitus chronic January 19, 2025 10:13am Venous insufficiency chronic 2024 10:13am Dizziness acute January 19 12:51pm Iron deficiency acute January 12:51pm Vitamin D deficiency acute 2024 12:51pm [facility] Work Phone: 1(621) 668-112604-15-2025 Evaluation note* Diagnosis Onset Date Resolution Status Admit Date Dizziness acute October 03 10:44am Essential hypertension chronic Ap ril 2024 10:44am Hyperlipidemia chronic September 10:44am Palpitations chronic October 03, 2024 10:44am 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, limited to breakdown skin acute October 13, 2024 10:00am Venous stasis 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 acute October 13, 2024 10:00am Chronic hypoxemic respirator y failure chronic October 13, 2024 10:00am COPD (chronic obstructive pulmonary disease) chronic October 13, 2 025 10:00am Debility chronic October 13 10:00am Edema of both lower extremities 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 October 13, 2024 10:00am Essential hypertension chronic Ap ril 2024 10:00am Hypothyroidism chronic September 10:00am Lymphedema chronic October 13 10:00am Morbid obesity with BMI of 45.0-49.9, adult chronic October 13 10:00am DOLORES (obstructive sleep apnea) chroni c October 13, 2024 10:00am Osteoarthritis chronic September 10:00am Pulmonary hypertension chronic Ap ril 2024 10:00am Type 2 diabetes mellitus chronic October 13, 2024 10:00am Venous insufficiency chronic Apri l 2024 10:00am 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 A pril 2024 1:26pm Morbid obesity with BMI of 45.0-49.9, adult chronic October 18 1:26pm DOLORES (obstructive sleep apnea) chroni c October 18, 2024 1:26pm Pulmonary hypertension chronic Ap ril 2024 1:26pm Essential hypertension chronic Ma y 2024 10:35am Hypothyroidism chronic May 19th, 2025 10:35am Insomnia chronic November 06, 2024 10:35am Cellulitis of left lower extremity acute November 17, 2024 1 0:15am 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, limited to breakdown skin acute November 17, 2024 1 0:15am Venous stasis 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 acute November 17, 2024 1 0:15am Venous stasis ulcer of left calf with fat layer exposed acute November 17, 2024 10:15am Venous stasis ulcer of right calf with fat layer exposed acute November 17, 2024 10:15am Venous ulcer with fat layer exposed acute November 17, 2024 1 0:15am Chronic hypoxemic respirator y failure chronic November 17, 2024 1 0:15am COPD (chronic obstructive pulmonary disease) chronic November 17 10:15am Debility chronic November 17, 2024 10:15am Edema of both lower extremities 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 November 17, 2024 10:15am Essential hypertension chronic Ma 2024 10:15am Hypothyroidism chronic November 17, 2024 10:15am Lymphedema chronic November 17, 2024 10:15am Morbid obesity with BMI of 45.0-49.9, adult chronic November 17, 2024 10:15am DOLORES (obstructive sleep apnea) chroni c November 17, 2024 10:15am Osteoarthritis chronic November 17, 2024 10:15am Pulmonary hypertension chronic Ma 2024 10:15am Type 2 diabetes mellitus chronic November 17, 2024 10:15am Venous insufficiency chronic November 17, 2024 10:15am Rhinosinusitis acute December 07, 2024 12:32pm Vertigo acute December 07 12:32pm Cellulitis of left lower extremity acute December 15, 2024 10:15am 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, limited to breakdown skin acute December 15, 2024 10:15am Venous stasis ulcer of left calf with fat layer exposed acute November 10:15am Venous stasis ulcer of right calf with fat layer exposed acute December 15, 2024 10:15am Venous ulcer with fat layer exposed acute December 15, 2024 10:15am Chronic hypoxemic respirator y failure chronic December 15, 2024 10:15am COPD (chronic obstructive pulmonary disease) chronic December 15 10:15am Debility chronic December 15 10:15am Edema of both lower extremities 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 December 15, 2024 10:15am Essential hypertension chronic Ju ne 2024 10:15am Hypothyroidism chronic December 15, 2024 10:15am Lymphedema chronic December 15 10:15am Morbid obesity with BMI of 45.0-49.9, adult chronic December 15, 2024 10:15am DOLORES (obstructive sleep apnea) chroni c December 15, 2024 10:15am Osteoarthritis chronic December 15, 2024 10:15am Pulmonary hypertension chronic Ju ne 2024 10:15am Type 2 diabetes mellitus chronic December 15, 2024 10:15am Venous insufficiency chronic December 15, 2024 10:15am Cellulitis of left lower extremity acute January 12, 2025 10:45am 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, limited to breakdown skin acute January 12, 2025 10:45am Venous stasis ulcer of left calf with fat layer exposed acute December 10:45am Venous stasis ulcer of right calf with fat layer exposed acute January 12, 2025 10:45am Venous ulcer with fat layer exposed acute January 12, 2025 10:45am Chronic hypoxemic respirator y failure chronic January 12, 2025 10:45am COPD (chronic obstructive pulmonary disease) chronic January 12 10:45am Debility chronic January 12 10:45am Edema of both lower extremities 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 Work Phone: 1(809) 762-263604-15-2025 Evaluation note* Diagnosis Onset Date Resolution Status Admit Date Dizziness acute October 03 10:44am Essential hypertension chronic Ap ril 2024 10:44am Hyperlipidemia chronic September 10:44am Palpitations chronic October 03, 2024 10:44am 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, limited to breakdown skin acute October 13, 2024 10:00am Venous stasis 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 acute October 13, 2024 10:00am Chronic hypoxemic respirator y failure chronic October 13, 2024 10:00am COPD (chronic obstructive pulmonary disease) chronic October 13, 2 025 10:00am Debility chronic October 13 10:00am Edema of both lower extremities 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 October 13, 2024 10:00am Essential hypertension chronic Ap ril 2024 10:00am Hypothyroidism chronic September 10:00am Lymphedema chronic October 13 10:00am Morbid obesity with BMI of 45.0-49.9, adult chronic October 13 10:00am DOLORES (obstructive sleep apnea) chroni c October 13, 2024 10:00am Osteoarthritis chronic September 10:00am Pulmonary hypertension chronic Ap ril 2024 10:00am Type 2 diabetes mellitus chronic October 13, 2024 10:00am Venous insufficiency chronic Apri l 2024 10:00am 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 A pril 2024 1:26pm Morbid obesity with BMI of 45.0-49.9, adult chronic October 18 1:26pm DOLORES (obstructive sleep apnea) chroni c October 18, 2024 1:26pm Pulmonary hypertension chronic Ap ril 2024 1:26pm Essential hypertension chronic Ma y 2024 10:35am Hypothyroidism chronic November 06, 2024 10:35am Insomnia chronic November 06, 2024 10:35am Cellulitis of left lower extremity acute November 17, 2024 1 0:15am 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, limited to breakdown skin acute November 17, 2024 1 0:15am Venous stasis 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 acute November 17, 2024 1 0:15am Venous stasis ulcer of left calf with fat layer exposed acute November 17, 2024 10:15am Venous stasis ulcer of right calf with fat layer exposed acute November 17, 2024 10:15am Venous ulcer with fat layer exposed acute November 17, 2024 1 0:15am Chronic hypoxemic respirator y failure chronic November 17, 2024 1 0:15am COPD (chronic obstructive pulmonary disease) chronic November 17 10:15am Debility chronic November 17, 2024 10:15am Edema of both lower extremities 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 November 17, 2024 10:15am Essential hypertension chronic Ma y 2024 10:15am Hypothyroidism chronic November 17, 2024 10:15am Lymphedema chronic November 17, 2024 10:15am Morbid obesity with BMI of 45.0-49.9, adult chronic November 17, 2024 10:15am DOLORES (obstructive sleep apnea) chroni c November 17, 2024 10:15am Osteoarthritis chronic November 17, 2024 10:15am Pulmonary hypertension chronic Ma 2024 10:15am Type 2 diabetes mellitus chronic November 17, 2024 10:15am Venous insufficiency chronic November 17, 2024 10:15am Rhinosinusitis acute December 07, 2024 12:32pm Vertigo acute December 07 12:32pm Cellulitis of left lower extremity acute December 15, 2024 10:15am 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, limited to breakdown skin acute December 15, 2024 10:15am Venous stasis ulcer of left calf with fat layer exposed acute November 10:15am Venous stasis ulcer of right calf with fat layer exposed acute December 15, 2024 10:15am Venous ulcer with fat layer exposed acute December 15, 2024 10:15am Chronic hypoxemic respirator y failure chronic December 15, 2024 10:15am COPD (chronic obstructive pulmonary disease) chronic December 15 10:15am Debility chronic December 15 10:15am Edema of both lower extremities 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 December 15, 2024 10:15am Essential hypertension chronic Ju ne 2024 10:15am Hypothyroidism chronic December 15, 2024 10:15am Lymphedema chronic December 15 10:15am Morbid obesity with BMI of 45.0-49.9, adult chronic December 15, 2024 10:15am DOLORES (obstructive sleep apnea) chroni c December 15, 2024 10:15am Osteoarthritis chronic December 15, 2024 10:15am Pulmonary hypertension chronic Ju ne 2024 10:15am Type 2 diabetes mellitus chronic December 15, 2024 10:15am Venous insufficiency chronic December 15, 2024 10:15am Cellulitis of left lower extremity acute January 12, 2025 10:45am 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, limited to breakdown skin acute January 12, 2025 10:45am Venous stasis ulcer of left calf with fat layer exposed acute December 10:45am Venous stasis ulcer of right calf with fat layer exposed acute January 12, 2025 10:45am Venous ulcer with fat layer exposed acute January 12, 2025 10:45am Chronic hypoxemic respirator y failure chronic January 12, 2025 10:45am COPD (chronic obstructive pulmonary disease) chronic January 12 10:45am Debility chronic January 12 10:45am Edema of both lower extremities 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 January 12, 2025 10:45am Essential hypertension chronic Ju ly 2024 10:45am Hypothyroidism chronic January 12, 2025 10:45am Lymphedema chronic January 12 10:45am Morbid obesity with BMI of 45.0-49.9, adult chronic January 12, 2025 10:45am DOLORES (obstructive sleep apnea) chroni c January 12, 2025 10:45am Osteoarthritis chronic January 12, 2025 10:45am Pulmonary hypertension chronic Ju ly 2024 10:45am Type 2 diabetes mellitus chronic January 12, 2025 10:45am Venous insufficiency chronic January 12, 2025 10:45am Dizziness acute January 19 12:51pm Vertigo acute January 19 12:51pm [facility] Work Phone: 1(272) 119-582804-15-2025 Evaluation note* Diagnosis Onset Date Resolution Status Admit Date Dizziness acute October 03 10:44am Essential hypertension chronic Ap ril 2024 10:44am Hyperlipidemia chronic September 10:44am Palpitations chronic October 03, 2024 10:44am 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, limited to breakdown skin acute October 13, 2024 10:00am Venous stasis 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 acute October 13, 2024 10:00am Chronic hypoxemic respirator y failure chronic October 13, 2024 10:00am COPD (chronic obstructive pulmonary disease) chronic October 13, 025 10:00am Debility chronic October 13 10:00am Edema of both lower extremities 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 October 13, 2024 10:00am Essential hypertension chronic Ap ril 2024 10:00am Hypothyroidism chronic September 10:00am Lymphedema chronic October 13 10:00am Morbid obesity with BMI of 45.0-49.9, adult chronic October 13 10:00am DOLORES (obstructive sleep apnea) chroni c October 13, 2024 10:00am Osteoarthritis chronic September 10:00am Pulmonary hypertension chronic Ap ril 2024 10:00am Type 2 diabetes mellitus chronic October 13, 2024 10:00am Venous insufficiency chronic Apri l 2024 10:00am 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 A pril 2024 1:26pm Morbid obesity with BMI of 45.0-49.9, adult chronic October 18 1:26pm DOLORES (obstructive sleep apnea) chroni c October 18, 2024 1:26pm Pulmonary hypertension chronic Ap ril 2024 1:26pm Essential hypertension chronic Ma y 2024 10:35am Hypothyroidism chronic November 06, 2024 10:35am Insomnia chronic November 06, 2024 10:35am Cellulitis of left lower extremity acute November 17, 2024 1 0:15am 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, limited to breakdown skin acute November 17, 2024 1 0:15am Venous stasis 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 acute November 17, 2024 1 0:15am Venous stasis ulcer of left calf with fat layer exposed acute November 17, 2024 10:15am Venous stasis ulcer of right calf with fat layer exposed acute November 17, 2024 10:15am Venous ulcer with fat layer exposed acute November 17, 2024 1 0:15am Chronic hypoxemic respirator y failure chronic November 17, 2024 1 0:15am COPD (chronic obstructive pulmonary disease) chronic November 17 10:15am Debility chronic November 17, 2024 10:15am Edema of both lower extremities 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 November 17, 2024 10:15am Essential hypertension chronic Ma y 2024 10:15am Hypothyroidism chronic November 17, 2024 10:15am Lymphedema chronic November 17, 2024 10:15am Morbid obesity with BMI of 45.0-49.9, adult chronic November 17, 2024 10:15am DOLORES (obstructive sleep apnea) chroni c November 17, 2024 10:15am Osteoarthritis chronic November 17, 2024 10:15am Pulmonary hypertension chronic Ma y 2024 10:15am Type 2 diabetes mellitus chronic November 17, 2024 10:15am Venous insufficiency chronic November 17, 2024 10:15am Rhinosinusitis acute December 07, 2024 12:32pm Vertigo acute December 07 12:32pm Cellulitis of left lower extremity acute December 15, 2024 10:15am 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, limited to breakdown skin acute December 15, 2024 10:15am Venous stasis ulcer of left calf with fat layer exposed acute November 10:15am Venous stasis ulcer of right calf with fat layer exposed acute December 15, 2024 10:15am Venous ulcer with fat layer exposed acute December 15, 2024 10:15am Chronic hypoxemic respirator y failure chronic December 15, 2024 10:15am COPD (chronic obstructive pulmonary disease) chronic December 15 10:15am Debility chronic December 15 10:15am Edema of both lower extremities 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 air December 15, 2024 10:15am Essential hypertension chronic Ju ne 2024 10:15am Hypothyroidism chronic December 15, 2024 10:15am Lymphedema chronic December 15 10:15am Morbid obesity with BMI of 45.0-49.9, adult chronic December 15, 2024 10:15am DOLORES (obstructive sleep apnea) chroni c December 15, 2024 10:15am Osteoarthritis chronic December 15, 2024 10:15am Pulmonary hypertension chronic Ju ne 2024 10:15am Type 2 diabetes mellitus chronic December 15, 2024 10:15am Venous insufficiency chronic December 15, 2024 10:15am Cellulitis of left lower extremity acute January 12, 2025 10:45am 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, limited to breakdown skin acute January 12, 2025 10:45am Venous stasis ulcer of left calf with fat layer exposed acute December 10:45am Venous stasis ulcer of right calf with fat layer exposed acute January 12, 2025 10:45am Venous ulcer with fat layer exposed acute January 12, 2025 10:45am Chronic hypoxemic respirator y failure chronic January 12, 2025 10:45am COPD (chronic obstructive pulmonary disease) chronic January 12 10:45am Debility chronic January 12 10:45am Edema of both lower extremities 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 January 12, 2025 10:45am Essential hypertension chronic 2024 10:45am Hypothyroidism chronic January 12, 2025 10:45am Lymphedema chronic January 12 10:45am Morbid obesity with BMI of 45.0-49.9, adult chronic January 12, 2025 10:45am DOLORES (obstructive sleep apnea) chroni c January 12, 2025 10:45am Osteoarthritis chronic January 12, 2025 10:45am Pulmonary hypertension chronic 2024 10:45am Type 2 diabetes mellitus chronic January 12, 2025 10:45am Venous insufficiency chronic January 12, 2025 10:45am Cellulitis of left lower extremity acute January 19, 2025 10:13am 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, limited to breakdown skin acute January 19, 2025 10:13am Venous stasis ulcer of left calf with fat layer exposed acute January 10:13am Venous stasis ulcer of right calf with fat layer exposed acute 2024 10:13am Venous ulcer with fat layer exposed acute January 19, 2025 10:13am Chronic hypoxemic respirator y failure chronic January 19, 2025 10:13am COPD (chronic obstructive pulmonary disease) chronic January 19, 2 025 10:13am Debility chronic January 19 10:13am Edema of both lower extremities 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 January 19, 2025 10:13am Essential hypertension chronic Au iraida 2024 10:13am Hypothyroidism chronic January 10:13am Lymphedema chronic January 19 10:13am Morbid obesity with BMI of 45.0-49.9, adult chronic January 19 10:13am DOLORES (obstructive sleep apnea) chroni c January 19, 2025 10:13am Osteoarthritis chronic January 10:13am Pulmonary hypertension chronic Au 2024 10:13am Type 2 diabetes mellitus chronic January 19, 2025 10:13am Venous insufficiency chronic 2024 10:13am Dizziness acute January 19 12:51pm Iron deficiency acute January 12:51pm Vitamin D deficiency acute 2024 12:51pm [facility] Work Phone: 1(971) 449-850203-28-2025 Progress note Author Sneha Rosa [facility] Note Date/Time September 15, 2024 10: 23am [facility] [address] [place] [address] Progress Note - Wound Care 09/15/24 1020 MR#: [id number] Acct: [id number] Name: LIZ WADSWORTH Rep #:[id number] : 1950 74 From: Sneha Rosa DO PCP: Dr. Luis Cortés MD Status:R EG RCR Location: History of Present Illness Date of Service: 09/15/24 Chief Complaint: Left LE ulcer, bilateral lower extremity swelling History of Wound: Liz is a pleasant 74 yo woman that presents to the wound center for bilateral lower extremity edema and blisters and drainage of her bilateral lower extremities. She has had increased edema the last 2 weeks and her legs started seeping a few days ago. She has been wearing her tubigrip compression and had been using the lymphedema pumps until they started seeping fluid. She tries to elevate her legs when she is sitting but is not always consistent with doing this. She has been wrapping her leg with gauze when it is seeping but otherwise has not been doing any regular dressings. Patient has been treated at the wound center in the past for similar wounds, most recently October 2023. She has also been seen in the vascular surgery clinic where she was evaluated her for BLE DVT and venous insufficiency. Patienthas a h/o provoked DVTs and has been off treatment with Eliquis since June 01/2023. GSV ablation has been done to her right lower leg. She has received lymphedema pumps that were ordered during her last treatment course and has beenusing these. Last venous study was 03/2022. Last A1C 01/2023 was 6.4%. Last TSH - 01/2022 Patient's medical history is also significant for CHF, COPD, T2DM, lymphedema. She has a CPAP but has not been using this due to needing a new mask. She statesthat a prescription was to be sent and she never received the mask. Her current mask has a hole in it. Subjective Subjective Liz returns today for treatment of edema to bilateral lower legs. She underwent venous ablation of left lower leg on 07/27/2024. She has been elevating her legs and using lymphedema pumps as directed. She tolerated Aquacel but had increased drainage and edema. She does continue to have drainage from left lateral lower leg and has mild erythema but no obvious ulcer, just skin breakdown. She denies fever, chills. Objective Data Objective Data Vital Signs: Vital Signs Temp Pulse Resp BP Pulse Ox O2 Del Method 97.5 F L 74 18 140/60 H 94 Room Air 09/15/24 09:38 09/15/24 09:38 09/15/24 09:38 09/15/24 09:38 08/19/24 00:41 09/08/24 11:01 Oxygen Delivery Method Room Air Weight: 140.16 kg Body Mass Index (BMI) 49.8 Lab / Micro Data Micro: Microbiology 09/01/24 10:27 Wound - Leg, Left Gram Stain - Final 09/01/24 10:27 Wound - Leg, Left Wound Culture - Final Achromobacter denitrificans Aerococcus viridans. Corynebacterium striatum Staphylococcus epidermidis Staphylococcus simulans 09/01/24 10:27 Wound - Leg, Left Anaerobic Culture - Final No anaerobic bacteria isolated. Physical Exam Const alert, oriented x3, no apparent distress and healthy appearing General Appearance: cooperative; Negative for combative or lethargic Orientation / Consciousness: awake Exam Limitations: no limitations Nutritional Appearance: obese HEENT normocephalic and head/scalp atraumatic Eyes EOMs intact bilaterally General Eye: normal appearance of both eyes Neck full ROM General: trachea midline Lymph Lymphatic: lymphedema severe and pitting Resp normal respiratory effort and no use of accessory muscles Effort and Inspection: Negative for labored, stridor or audible wheezes Cardio regular rate and regular rhythm Back/Spine Cervical Spine: cervical ROM normal Extremity full ROM, normal capillary refill and no clubbing, cyanosis or edema General Extremity: edema bilateral lower extremity Details: severe (with skin changes associated with lymphedema, thickened nodular appearance from mid allen to ankle) Skin no rashes or lesions noted General Skin Exam: erythema, venous stasis and dermatitis Wounds: wounds noted Wound Narrative: as in clinical panel, mildly decreased erythema and light serous drainage from lateral lower leg, nodular appearance of skin associated with lymphedema Neuro oriented x3, CN's II-XII intact bilaterally, no focal motor deficits and no sensory deficits noted Psych thought process normal, cooperative, affect normal, speech normal and activity/motor behavior normal Debridement Note Debridement Note Wound debrided: left lateral leg Laterality: Left Type of Debridement: Selective debridement Anesthesia Used: 5% Lidocaine Gel Depth: Down to and including healthy tissue Percentage of wound debrided: 100 Instrument Used: 3mm curette Tissue Removed: Yellow slough, devitalized tissue Severity: Limited To Skin Breakdown Amount of bleeding with debridement: None Patient tolerated procedure: Patient tolerated procedure well Post-Debridement Measurements and Additional Note: Post-Debridement Measurements/Treatment - Nurse 1 - General Ulcer Assessment Start: 08/25/24 10:40 Freq: Status: Active Protocol: KELSEY Activity Type Activity Date Activity User E-sign Co-sign Detail Recorded Client Recorded Date Recorded By Document 08/25/24 10:40 RB [id number] 08/25/24 11:11 RB Document 09/01/24 09:54 KW [id number] 09/01/24 10:01 KW Document 09/08/24 11:01 KW [id number] 09/08/24 11:15 KW Document 09/15/24 09:38 RB [id number] 09/15/24 09:44 RB 08/25/24 09/01/24 09/08/24 10:40 09:54 11:01 - Today's Visit Information Type of service Follow-up Visit Follow-up Visit Follow-up Visit (Physician/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 (Physician/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 (Physician/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 ) ) ) Arrival Mode Ambulatory, Ambulatory, Ambulatory, Walker Walker Walker Transfer Assistance None Accompanied by Patient Identification Verified (Name & Yes Yes Yes ) Patient Requires Transmission-Based No Precautions Height and Weight Body Mass Index (BMI) 49.8 49.8 49.8 BMI Classification Obese Obese Obese Vital Signs Temperature (97.8 F-99.1 F) 97.6 F L 97.0 F L 97.7 F L Temperature Source Temporal Temporal Temporal Pulse Rate (60-100) 81 81 79 Pulse Location Monitor Monitor Monitor Respiratory Rate (12-18) 18 18 16 Respiratory rate source Observation Observation Observation Oxygen Delivery Method Room Air Room Air Blood Pressure (90/60-120/80) 148/68 H 170/82 H 172/87 H Blood Pressure Mean (mm Hg) 94 111 115 Source Monitor Monitor Monitor Position Semi-Fowlers Semi-Fowlers Semi-Fowlers Blood Pressure Location Left Arm Left Arm Left Arm History Since Last Visit- (Skip if this is Patient's initial visit) Have you changed medications since your No No No last visit? Any new allergies or adverse reactions No No No Had a fall/change in ADL's that may No No No increase risk of falls Signs or symptoms of abuse and/or No No No neglect since last visit Have you been in the hospital since your No No No last visit? Has dressing in place as prescribed Yes Yes Yes Has compression in place as prescribed Yes Yes Yes Has offloadiing in place as prescribed N/A N/A N/A Experienced any changes in pain level or No No No management Left Footwear Regular Shoe Regular Shoe Regular Shoe Right Footwear Regular Shoe Regular Shoe Regular Shoe Pain Scale: 0-10 Numeric Is Patient Pain Free? Yes Yes Yes 09/15/24 09:38 WC - Today's Visit Information Type of service Follow-up Visit (Physician/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 ) Arrival Mode Ambulatory, Walker Transfer Assistance None Accompanied by Patient Identification Verified (Name & Yes ) Patient Requires Transmission-Based No Precautions Height and Weight Body Mass Index (BMI) 49.8 BMI Classification Obese Vital Signs Temperature (97.8 F-99.1 F) 97.5 F L Temperature Source Temporal Pulse Rate (60-100) 74 Pulse Location Monitor Respiratory Rate (12-18) 18 Respiratory rate source Observation Oxygen Delivery Method Blood Pressure (90/60-120/80) 140/60 H Blood Pressure Mean (mm Hg) 86 Source Monitor Position Sitting Blood Pressure Location Left Arm History Since Last Visit- (Skip if this is Patient's initial visit) Have you changed medications since your No last visit? Any new allergies or adverse reactions No Had a fall/change in ADL's that may No increase risk of falls Signs or symptoms of abuse and/or No neglect since last visit Have you been in the hospital since your No last visit? Has dressing in place as prescribed Yes Has compression in place as prescribed Yes Has offloadiing in place as prescribed N/A Experienced any changes in pain level or No management Left Footwear Regular Shoe Right Footwear Regular Shoe Pain Scale: 0-10 Numeric Is Patient Pain Free? Yes WC - Nurse 1 - General Ulcer Measurement Start: 08/25/24 10:40 Freq: Status: Active Protocol: Activity Type Activity Date Activity User E-sign Co-sign Detail Recorded Client Recorded Date Recorded By Document 08/25/24 10:40 RB [id number] 08/25/24 11:11 RB Edit Result 08/25/24 10:40 RB (1) [id number] 08/25/24 11:49 RB Document 09/01/24 09:54 KW [id number] 09/01/24 10:01 KW Document 09/08/24 11:01 KW [id number] 09/08/24 11:15 KW Document 09/15/24 09:38 RB [id number] 09/15/24 09:44 RB (1) Left Ankle (cm) => 28.5 08/25/24 09/01/24 09/08/24 10:40 09:54 11:01 Wound Center Nurse 1 #9 Left Lateral Allen -Combined with other wound No -Current Size (cm) - Length 0.1 0.1 0.1 -Current Size (cm) - Width 0.1 0.1 0.1 -Current Size (cm) - Depth 0.1 0 0 -Total Square Cm 0.01 0.01 0.01 -Date of Last Picture (Recall this 09/01/24 field) -Photo Taken Yes -Tunneling No -Undermining/Tunneling No -Circular Undermining No -Exudate Amt Medium Large Large -Exudate Type Serosanguineous Serosanguineous Serosanguineous -Wound Margin Distinct, Indistinct, Non Indistinct, Non Outline -Visible -Visible Attached -Granulation Amt Large (67-100%) Large (67-100%) -Granulation Quality [place] Red -Slough/Fibrin Yes -Necrosis Amt Small (1-33%) -Necrotic Tissue Type Adherent Slough -Structure Exposed N/A -Texture (Adrianna-wound Skin Appearance) Assessed, Assessed Assessed Excoriation -Moisture (Adrianna-wound Skin Appearance) Weeping Assessed Assessed, Maceration -Color (Adrianna-wound Skin Appearance) Assessed Assessed, Assessed, Erythema Erythema -Temperature (Adrianna-wound Skin No Abnormality No Abnormality No Abnormality Appearance) (Pt Warm) (Pt Warm) (Pt Warm) -Tenderness on Palpation (Adrianna-wound No No No Skin Appearance) -Ulcer Cleansing Wound Cleanser Rinsed/ Soap and Water Irrigated with Saline -Foul Odor after Cleansing No No -Anesthetic Used 5% Lidocaine 4% Lidocaine Gel Solution,5% Lidocaine Gel Lower Limb Edema Present Yes Right Calf (cm) 55 57.7 50 Right Ankle (cm) 32.2 31 28.2 Left Calf (cm) 48 58.3 53 Left Ankle (cm) 28.5 31 29.7 09/15/24 09:38 Wound Center Nurse 1 #9 Left Lateral Allen -Combined with other wound No -Current Size (cm) - Length 0.1 -Current Size (cm) - Width 0.1 -Current Size (cm) - Depth 0.1 -Total Square Cm 0.01 -Date of Last Picture (Recall this field) -Photo Taken Yes -Tunneling No -Undermining/Tunneling No -Circular Undermining No -Exudate Amt Large -Exudate Type Serosanguineous -Wound Margin Distinct, Outline Attached -Granulation Amt Large (67-100%) -Granulation Quality [place] -Slough/Fibrin Yes -Necrosis Amt Small (1-33%) -Necrotic Tissue Type Adherent Slough -Structure Exposed N/A -Texture (Adrianna-wound Skin Appearance) Localized Edema -Moisture (Adrianna-wound Skin Appearance) Weeping -Color (Adrianna-wound Skin Appearance) Assessed -Temperature (Adrianna-wound Skin No Abnormality Appearance) (Pt Warm) -Tenderness on Palpation (Adrianna-wound No Skin Appearance) -Ulcer Cleansing Wound Cleanser -Foul Odor after Cleansing No -Anesthetic Used 5% Lidocaine Gel Lower Limb Edema Present Yes Right Calf (cm) 58.5 Right Ankle (cm) 30.5 Left Calf (cm) 57.5 Left Ankle (cm) 29.5 WC - Nurse 2 - General Ulcer CM Notes Start: 08/25/24 10:40 Freq: Status: Active Protocol: Activity Type Activity Date Activity User E-sign Co-sign Detail Recorded Client Recorded Date Recorded By Document 08/25/24 11:15 GM [id number] 08/25/24 11:20 GM Document 09/01/24 10:24 GM [id number] 09/01/24 10:29 GM Document 09/08/24 11:48 GM [id number] 09/08/24 11:49 GM Document 09/15/24 09:55 DS [id number] 09/15/24 09:57 DS 08/25/24 09/01/24 09/08/24 11:15 10:24 11:48 Wound Center Nurse 2 #9 Left Lateral Allen -Time 11:15 10:24 11:48 -Correct Patient Yes Yes Yes -Correct Side, Site, Position Yes Yes Yes -Correct Procedure Yes No No -Procedure Performed Yes No No -Type of Procedure Debridement -Clinical Debridement Subcutaneous -Tissue Removed Subcutaneous -Post Debridement (cm) - Length 1.0 0.5 -Post Debridement (cm) - Width 2.0 0.5 -Post Debridement (cm) - Depth 0.1 0.1 -Total Square (Post) (cm) 2.00 0.25 -Area of Debridement (cm) - Length 1.0 -Area of Debridement (cm) - Width 2.0 -Total Square (Area) (cm) 2.00 -Tunneling No No No -Undermining/Tunneling No No No -Circular Undermining No No No -Wound/Ulcer Outcome Not Healed Not Healed Healed- Epithelialized -Ulcer Cleansing Rinsed/ Rinsed/ Not Cleansed Irrigated with Irrigated with Saline Saline -Foul Odor after Cleansing No No No -Bioengineered Tissue No No -Bleeding Controlled with Pressure NA NA -Treatment Response Procedure Tolerated Well -Offloading No -Debridement - Open, 1st 20sq cm -Debridement - Subq, 1st 20sq cm Yes Pain Scale: 0-10 Numeric Is Patient Pain Free? Yes Yes Yes 09/15/24 09:55 Wound Center Nurse 2 #9 Left Lateral Allen -Time 09:55 -Correct Patient Yes -Correct Side, Site, Position Yes -Correct Procedure Yes -Procedure Performed Yes -Type of Procedure Debridement -Clinical Debridement Epidermis / Dermis -Tissue Removed Epidermis, Dermis -Post Debridement (cm) - Length 0.2 -Post Debridement (cm) - Width 0.2 -Post Debridement (cm) - Depth 0.1 -Total Square (Post) (cm) 0.04 -Area of Debridement (cm) - Length 0.2 -Area of Debridement (cm) - Width 0.2 -Total Square (Area) (cm) 0.04 -Tunneling No -Undermining/Tunneling No -Circular Undermining No -Wound/Ulcer Outcome Not Healed -Ulcer Cleansing Rinsed/ Irrigated with Saline -Foul Odor after Cleansing No -Bioengineered Tissue No -Bleeding Controlled with Pressure -Treatment Response Procedure Tolerated Well -Offloading -Debridement - Open, 1st 20sq cm Yes -Debridement - Subq, 1st 20sq cm Pain Scale: 0-10 Numeric Is Patient Pain Free? Yes WC - Nurse 3 - General Ulcer D/C NN Start: 08/25/24 10:40 Freq: Status: Active Protocol: Activity Type Activity Date Activity User E-sign Co-sign Detail Recorded Client Recorded Date Recorded By Document 08/25/24 11:49 RB [id number] 08/25/24 11:51 RB Document 08/25/24 11:58 RB [id number] 08/25/24 11:59 RB Document 09/01/24 10:34 KW [id number] 09/01/24 10:35 KW Document 09/08/24 12:08 KW [id number] 09/08/24 12:08 KW 08/25/24 08/25/24 09/01/24 11:49 11:58 10:34 Wound Care Center Nurse 3 #9 Left Lateral Allen -Ulcer Cleansing Wound Cleanser -Primary Dressing Applied Promogran, Aquacel Extra, Silicone Border Optilok 6.5x10 Foam 6x6 -Primary Dressing Covered/Secured with -Aquacel Extra 1 -Optilok 5x5 1/2 -Optilok 6.5x10 1 -Promogran 1 -Silicone Border Foam 6x6 1 BLE -Lotion applied to leg before Yes compression wrap -Multi-Layered Wrap Application Unna Boot - Bilateral -Unna- Bilat (Qty applied) 1 RLE -Lotion applied to leg before Yes compression wrap -Tubular Bandage Double Layer -Size of Tubigrip Used Size F -Size F ($) 2 lle -Lotion applied to leg before Yes compression wrap -Tubular Bandage Double Layer -Size of Tubigrip Used Size F -Size F ($) 2 Treatment Response Procedure Tolerated Well Pain Scale: 0-10 Numeric Is Patient Pain Free? Yes Yes Yes WC - Visit Discharge Discharge Condition Stable Stable Ambulatory Status Ambulatory, Ambulatory, Walker Walker Transportation Private Auto Private Auto Medication Reconcilliation completed & No No provided to patient/care provider Clinical Summary of Care Provided Yes Yes 09/08/24 12:08 Wound Care Center Nurse 3 #9 Left Lateral Allen -Ulcer Cleansing -Primary Dressing Applied Aquacel Extra, Optilok 5x5 1/2 -Primary Dressing Covered/Secured with Dry Gauze & Roll Gauze, Secured with Tape -Aquacel Extra 1 -Optilok 5x5 1/2 1 -Optilok 6.5x10 -Promogran -Silicone Border Foam 6x6 BLE -Lotion applied to leg before compression wrap -Multi-Layered Wrap Application -Unna- Bilat (Qty applied) RLE -Lotion applied to leg before compression wrap -Tubular Bandage Double Layer -Size of Tubigrip Used Size F -Size F ($) 2 lle -Lotion applied to leg before compression wrap -Tubular Bandage Double Layer -Size of Tubigrip Used Size F -Size F ($) 2 Treatment Response Pain Scale: 0-10 Numeric Is Patient Pain Free? Yes WC - Visit Discharge Discharge Condition Stable Ambulatory Status Ambulatory Transportation Private Auto Medication Reconcilliation completed & No provided to patient/care provider Clinical Summary of Care Provided Yes 08/25/24 11:58 Wound Center by Zahira Nolasco pt instructed on dressing change with promogran and bordered foam then tubigrip Initialized on 08/25/24 11:58 - END OF NOTE Assessment/Plan Assessment/Plan (1) Non-pressure chronic ulcer left lower leg, limited to breakdown skin: CODE(S): L97.921 - Non-pressure chronic ulcer of unspecified part of left lower leg limited to breakdown of skin (2) Venous insufficiency: CODE(S): I87.2 - Venous insufficiency (chronic) (peripheral) (3) Edema of both lower extremities: CODE(S): R60.0 - Localized edema (4) Lymphedema: CODE(S): I89.0 - Lymphedema, not elsewhere classified (5) Essential hypertension: CODE(S): I10 - Essential (primary) hypertension (6) Morbid obesity with BMI of 45.0-49.9, adult: CODE(S): E66.01 - Morbid (severe) obesity due to excess calories; Z68.42 -Body mass index [BMI] 45.0-49.9, adult (7) Venous stasis 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: CODE(S): I83.023 - Varicose veins of left lower extremity with ulcer of ankle; L97.321 - Non-pressure 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 QUALIFIERS: Varicose vein presence: with varicose veins Qualified Code(s): I83.023 - Varicose veins of left lower extremity with ulcer of ankle; L97.321 - Non- pressure 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 (8) Debility: CODE(S): R53.81 - Other malaise (9) Osteoarthritis: CODE(S): M19.90 - Unspecified osteoarthritis, unspecified site QUALIFIERS: Osteoarthritis location: multiple joints Osteoarthritis type: primary Qualified Code(s): M15.9 - Polyosteoarthritis, unspecified (10) COPD (chronic obstructive pulmonary disease): CODE(S): J44.9 - Chronic obstructive pulmonary disease, unspecified QUALIFIERS: COPD type: unspecified COPD Qualified Code(s): J44.9 - Chronic obstructive pulmonary disease, unspecified (11) Chronic hypoxemic respiratory failure: CODE(S): J96.11 - Chronic respiratory failure with hypoxia (12) Pulmonary hypertension: CODE(S): I27.20 - Pulmonary hypertension, unspecified (13) Hypothyroidism: CODE(S): E03.9 - Hypothyroidism, unspecified QUALIFIERS: Hypothyroidism type: unspecified Qualified Code(s): E03.9 - Hypothyroidism, unspecified (14) Type 2 diabetes mellitus: CODE(S): E11.9 - Type 2 diabetes mellitus without complications QUALIFIERS: Diabetes mellitus residential insulin use: without residential use Diabetes mellitus complication status: with other specified complication Qualified Code(s): E11.69 - Type 2 diabetes mellitus with other specified complication (15) DOLORES (obstructive sleep apnea): CODE(S): G47.33 - Obstructive sleep apnea (adult) (pediatric) PLAN: Plan Evaluation and debridement performed today in clinic as annotated above. At home wound-care instructions: Will continue to dress her left lower leg with Aquacel and super absorber and roll gauze changed daily for heavy drainage. She was instructed to keep dressings clean and dry. Will have her use lymphedema pumps for 60 minutes 2-3 times daily. Off-loading: The patient was instructed to avoid pressure and friction on the affected areas. Reposition every 2 hours at minimum. Avoid prolonged standing and/or dangling of legs. When seated, feet should be elevated at chest level. Frequent ambulation is encouraged. Diet: Patient encouraged to increase protein intake while taking caution to avoid high carbohydrate and/or sugar intake. Encouraged weight loss. Labs/cultures/imaging: Wound Culture of left allen ulcer showed pseudomonas and MRSA. Ciprofloxacin prescribed. Venous ultrasound showed incompetence of veins of left lower extremity and vascular performed an ablation on 07/27/2024. Culture showed E. faecalis, anaerobic bacteria and Pseudomonas advised to restart Ciprofloxacin and Flagyl was prescribed for Anaerobic bacteria. 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 She has been referred to infectious disease and they will see her 09/27/2024. We are going to try treating her with Bactrim DS until she sees Dr. Johnson. She is tolerating this. Encouraged her to get her CPAP mask to improve DOLORES and pulmonary HTN treatment compliance which is adding to her decompensated lymphedema. Follow-up: Will have her follow up in 2 weeks. Return sooner or report to the emergency room should symptoms worsen, or new symptoms arise. Note: webtide speech recognition train control electronic technician software was used to create portions of this document. Sound-alike and misspelled words, as well as other train control electronic technician errors may be contained in the documentation. 09/15/24 1023 <Electronically signed by Sneha Rosa DO> Cosigner Signature (if applicable): CC: ~ Signed [facility] Work Phone: [phone] Progress note [facility] [address] [place] [address] Progress Note - Wound Care 09/15/24 1020 MR#: [id number] Acct: [id number] Name: LIZ WADSWORTH Rep #:[id number] : 1950 74 From: Sneha Rosa DO PCP: Dr. Luis Cortés MD Status:R EG RCR Location: History of Present Illness Date of Service: 09/15/24 Chief Complaint: Left LE ulcer, bilateral lower extremity swelling History of Wound: Liz is a pleasant 74 yo woman that presents to the wound center for bilateral lower extremity edema and blisters and drainage of her bilateral lower extremities. She has had increased edema the last 2 weeks and her legs started seeping a few days ago. She has been wearing her tubigrip compression and had been using the lymphedema pumps until they started seeping fluid. She tries to elevate her legs when she is sitting but is not always consistent with doing this. She has been wrapping her leg with gauze when it is seeping but otherwise has not been doing any regular dressings. Patient has been treated at the wound center in the past for similar wounds, most recently October 2023. She has also been seen in the vascular surgery clinic where she was evaluated her for BLE DVT and venous insufficiency. Patienthas a h/o provoked DVTs and has been off treatment with Eliquis since June 01/2023. GSV ablation has been done to her right lower leg. She has received lymphedema pumps that were ordered during her last treatment course and has beenusing these. Last venous study was 03/2022. Last A1C 01/2023 was 6.4%. Last TSH - 01/2022 Patient's medical history is also significant for CHF, COPD, T2DM, lymphedema. She has a CPAP but has not been using this due to needing a new mask. She statesthat a prescription was to be sent and she never received the mask. Her current mask has a hole in it. Subjective Subjective Liz returns today for treatment of edema to bilateral lower legs. She underwent venous ablation of left lower leg on 07/27/2024. She has been elevating her legs and using lymphedema pumps as directed. She tolerated Aquacel but had increased drainage and edema. She does continue to have drainage from left lateral lower leg and has mild erythema but no obvious ulcer, just skin breakdown. She deniesfever, chills. Objective Data Objective Data Vital Signs: Vital Signs Temp Pulse Resp BP Pulse Ox O2 Del Method 97.5 F L 74 18 140/60 H 94 Room Air 09/15/24 09:38 09/15/24 09:38 09/15/24 09:38 09/15/24 09:38 08/19/24 00:41 09/08/24 11:01 Oxygen Delivery Method Room Air Weight: 140.16 kg Body Mass Index (BMI) 49.8 Lab / Micro Data Micro: Microbiology 09/01/24 10:27 Wound - Leg, Left Gram Stain - Final 09/01/24 10:27 Wound - Leg, Left Wound Culture - Final Achromobacter denitrificans Aerococcus viridans. Corynebacterium striatum Staphylococcus epidermidis Staphylococcus simulans 09/01/24 10:27 Wound - Leg, Left Anaerobic Culture - Final No anaerobic bacteria isolated. Physical Exam Const alert, oriented x3, no apparent distress and healthy appearing General Appearance: cooperative; Negative for combative or lethargic Orientation / Consciousness: awake Exam Limitations: no limitations Nutritional Appearance: obese HEENT normocephalic and head/scalp atraumatic Eyes EOMs intact bilaterally General Eye: normal appearance of both eyes Neck full ROM General: trachea midline Lymph Lymphatic: lymphedema severe and pitting Resp normal respiratory effort and no use of accessory muscles Effort and Inspection: Negative for labored, stridor or audible wheezes Cardio regular rate and regular rhythm Back/Spine Cervical Spine: cervical ROM normal Extremity full ROM, normal capillary refill and no clubbing, cyanosis or edema General Extremity: edema bilateral lower extremity Details: severe (with skin changes associated with lymphedema, thickened nodular appearance from mid allen to ankle) Skin no rashes or lesions noted General Skin Exam: erythema, venous stasis and dermatitis Wounds: wounds noted Wound Narrative: as in clinical panel, mildly decreased erythema and light serous drainage from lateral lower leg, nodular appearance of skin associated with lymphedema Neuro oriented x3, CN's II-XII intact bilaterally, no focal motor deficits and no sensory deficits noted Psych thought process normal, cooperative, affect normal, speech normal and activity/motor behavior normal Debridement Note Debridement Note Wound debrided: left lateral leg Laterality: Left Type of Debridement: Selective debridement Anesthesia Used: 5% Lidocaine Gel Depth: Down to and including healthy tissue Percentage of wound debrided: 100 Instrument Used: 3mm curette Tissue Removed: Yellow slough, devitalized tissue Severity: Limited To Skin Breakdown Amount of bleeding with debridement: None Patient tolerated procedure: Patient tolerated procedure well Post-Debridement Measurements and Additional Note: Post-Debridement Measurements/Treatment WC - Nurse 1 - General Ulcer Assessment Start: 08/25/24 10:40 Freq: Status: Active Protocol: KELSEY Activity Type Activity Date Activity User E-sign Co-sign Detail Recorded Client Recorded Date Recorded By Document 08/25/24 10:40 RB [id number] 08/25/24 11:11 RB Document 09/01/24 09:54 KW [id number] 09/01/24 10:01 KW Document 09/08/24 11:01 KW [id number] 09/08/24 11:15 KW Document 09/15/24 09:38 RB [id number] 09/15/24 09:44 RB 08/25/24 09/01/24 09/08/24 10:40 09:54 11:01 WC - Today's Visit Information Type of service Follow-up Visit Follow-up Visit Follow-up Visit (Physician/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 (Physician/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 (Physician/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 ) ) ) Arrival Mode Ambulatory, Ambulatory, Ambulatory, Walker Walker Walker Transfer Assistance None Accompanied by Patient Identification Verified (Name & Yes Yes Yes ) Patient Requires Transmission-Based No Precautions Height and Weight Body Mass Index (BMI) 49.8 49.8 49.8 BMI Classification Obese Obese Obese Vital Signs Temperature (97.8 F-99.1 F) 97.6 F L 97.0 F L 97.7 F L Temperature Source Temporal Temporal Temporal Pulse Rate (60-100) 81 81 79 Pulse Location Monitor Monitor Monitor Respiratory Rate (12-18) 18 18 16 Respiratory rate source Observation Observation Observation Oxygen Delivery Method Room Air Room Air Blood Pressure (90/60-120/80) 148/68 H 170/82 H 172/87 H Blood Pressure Mean (mm Hg) 94 111 115 Source Monitor Monitor Monitor Position Semi-Fowlers Semi-Fowlers Semi-Fowlers Blood Pressure Location Left Arm Left Arm Left Arm History Since Last Visit- (Skip if this is Patient's initial visit) Have you changed medications since your No No No last visit? Any new allergies or adverse reactions No No No Had a fall/change in ADL's that may No No No increase risk of falls Signs or symptoms of abuse and/or No No No neglect since last visit Have you been in the hospital since your No No No last visit? Has dressing in place as prescribed Yes Yes Yes Has compression in place as prescribed Yes Yes Yes Has offloadiing in place as prescribed N/A N/A N/A Experienced any changes in pain level or No No No management Left Footwear Regular Shoe Regular Shoe Regular Shoe Right Footwear Regular Shoe Regular Shoe Regular Shoe Pain Scale: 0-10 Numeric Is Patient Pain Free? Yes Yes Yes 09/15/24 09:38 WC - Today's Visit Information Type of service Follow-up Visit (Physician/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 ) Arrival Mode Ambulatory, Walker Transfer Assistance None Accompanied by Patient Identification Verified (Name & Yes ) Patient Requires Transmission-Based No Precautions Height and Weight Body Mass Index (BMI) 49.8 BMI Classification Obese Vital Signs Temperature (97.8 F-99.1 F) 97.5 F L Temperature Source Temporal Pulse Rate (60-100) 74 Pulse Location Monitor Respiratory Rate (12-18) 18 Respiratory rate source Observation Oxygen Delivery Method Blood Pressure (90/60-120/80) 140/60 H Blood Pressure Mean (mm Hg) 86 Source Monitor Position Sitting Blood Pressure Location Left Arm History Since Last Visit- (Skip if this is Patient's initial visit) Have you changed medications since your No last visit? Any new allergies or adverse reactions No Had a fall/change in ADL's that may No increase risk of falls Signs or symptoms of abuse and/or No neglect since last visit Have you been in the hospital since your No last visit? Has dressing in place as prescribed Yes Has compression in place as prescribed Yes Has offloadiing in place as prescribed N/A Experienced any changes in pain level or No management Left Footwear Regular Shoe Right Footwear Regular Shoe Pain Scale: 0-10 Numeric Is Patient Pain Free? Yes - Nurse 1 - General Ulcer Measurement Start: 08/25/24 10:40 Freq: Status: Active Protocol: Activity Type Activity Date Activity User E-sign Co-sign Detail Recorded Client Recorded Date Recorded By Document 08/25/24 10:40 RB [id number] 08/25/24 11:11 RB Edit Result 08/25/24 10:40 RB (1) [id number] 08/25/24 11:49 RB Document 09/01/24 09:54 KW [id number] 09/01/24 10:01 KW Document 09/08/24 11:01 KW [id number] 09/08/24 11:15 KW Document 09/15/24 09:38 RB [id number] 09/15/24 09:44 RB (1) Left Ankle (cm) => 28.5 08/25/24 09/01/24 09/08/24 10:40 09:54 11:01 Wound Center Nurse 1 #9 Left Lateral Allen -Combined with other wound No -Current Size (cm) - Length 0.1 0.1 0.1 -Current Size (cm) - Width 0.1 0.1 0.1 -Current Size (cm) - Depth 0.1 0 0 -Total Square Cm 0.01 0.01 0.01 -Date of Last Picture (Recall this 09/01/24 field) -Photo Taken Yes -Tunneling No -Undermining/Tunneling No -Circular Undermining No -Exudate Amt Medium Large Large -Exudate Type Serosanguineous Serosanguineous Serosanguineous -Wound Margin Distinct, Indistinct, Non Indistinct, Non Outline -Visible -Visible Attached -Granulation Amt Large (67-100%) Large (67-100%) -Granulation Quality [place] Red -Slough/Fibrin Yes -Necrosis Amt Small (1-33%) -Necrotic Tissue Type Adherent Slough -Structure Exposed N/A -Texture (Adrianna-wound Skin Appearance) Assessed, Assessed Assessed Excoriation -Moisture (Adrianna-wound Skin Appearance) Weeping Assessed Assessed, Maceration -Color (Adrianna-wound Skin Appearance) Assessed Assessed, Assessed, Erythema Erythema -Temperature (Adrianna-wound Skin No Abnormality No Abnormality No Abnormality Appearance) (Pt Warm) (Pt Warm) (Pt Warm) -Tenderness on Palpation (Adrianna-wound No No No Skin Appearance) -Ulcer Cleansing Wound Cleanser Rinsed/ Soap and Water Irrigated with Saline -Foul Odor after Cleansing No No -Anesthetic Used 5% Lidocaine 4% Lidocaine Gel Solution,5% Lidocaine Gel Lower Limb Edema Present Yes Right Calf (cm) 55 57.7 50 Right Ankle (cm) 32.2 31 28.2 Left Calf (cm) 48 58.3 53 Left Ankle (cm) 28.5 31 29.7 09/15/24 09:38 Wound Center Nurse 1 #9 Left Lateral Allen -Combined with other wound No -Current Size (cm) - Length 0.1 -Current Size (cm) - Width 0.1 -Current Size (cm) - Depth 0.1 -Total Square Cm 0.01 -Date of Last Picture (Recall this field) -Photo Taken Yes -Tunneling No -Undermining/Tunneling No -Circular Undermining No -Exudate Amt Large -Exudate Type Serosanguineous -Wound Margin Distinct, Outline Attached -Granulation Amt Large (67-100%) -Granulation Quality [place] -Slough/Fibrin Yes -Necrosis Amt Small (1-33%) -Necrotic Tissue Type Adherent Slough -Structure Exposed N/A -Texture (Adrianna-wound Skin Appearance) Localized Edema -Moisture (Adrianna-wound Skin Appearance) Weeping -Color (Adrianna-wound Skin Appearance) Assessed -Temperature (Adrianna-wound Skin No Abnormality Appearance) (Pt Warm) -Tenderness on Palpation (Adrianna-wound No Skin Appearance) -Ulcer Cleansing Wound Cleanser -Foul Odor after Cleansing No -Anesthetic Used 5% Lidocaine Gel Lower Limb Edema Present Yes Right Calf (cm) 58.5 Right Ankle (cm) 30.5 Left Calf (cm) 57.5 Left Ankle (cm) 29.5 WC - Nurse 2 - General Ulcer CM Notes Start: 08/25/24 10:40 Freq: Status: Active Protocol: Activity Type Activity Date Activity User E-sign Co-sign Detail Recorded Client Recorded Date Recorded By Document 08/25/24 11:15 [id number] 08/25/24 11:20 Document 09/01/24 10:24 [id number] 09/01/24 10:29 Document 09/08/24 11:48 GM [id number] 09/08/24 11:49 GM Document 09/15/24 09:55 DS [id number] 09/15/24 09:57 DS 08/25/24 09/01/24 09/08/24 11:15 10:24 11:48 Wound Center Nurse 2 #9 Left Lateral Allen -Time 11:15 10:24 11:48 -Correct Patient Yes Yes Yes -Correct Side, Site, Position Yes Yes Yes -Correct Procedure Yes No No -Procedure Performed Yes No No -Type of Procedure Debridement -Clinical Debridement Subcutaneous -Tissue Removed Subcutaneous -Post Debridement (cm) - Length 1.0 0.5 -Post Debridement (cm) - Width 2.0 0.5 -Post Debridement (cm) - Depth 0.1 0.1 -Total Square (Post) (cm) 2.00 0.25 -Area of Debridement (cm) - Length 1.0 -Area of Debridement (cm) - Width 2.0 -Total Square (Area) (cm) 2.00 -Tunneling No No No -Undermining/Tunneling No No No -Circular Undermining No No No -Wound/Ulcer Outcome Not Healed Not Healed Healed- Epithelialized -Ulcer Cleansing Rinsed/ Rinsed/ Not Cleansed Irrigated with Irrigated with Saline Saline -Foul Odor after Cleansing No No No -Bioengineered Tissue No No -Bleeding Controlled with Pressure NA NA -Treatment Response Procedure Tolerated Well -Offloading No -Debridement - Open, 1st 20sq cm -Debridement - Subq, 1st 20sq cm Yes Pain Scale: 0-10 Numeric Is Patient Pain Free? Yes Yes Yes 09/15/24 09:55 Wound Center Nurse 2 #9 Left Lateral Allen -Time 09:55 -Correct Patient Yes -Correct Side, Site, Position Yes -Correct Procedure Yes -Procedure Performed Yes -Type of Procedure Debridement -Clinical Debridement Epidermis / Dermis -Tissue Removed Epidermis, Dermis -Post Debridement (cm) - Length 0.2 -Post Debridement (cm) - Width 0.2 -Post Debridement (cm) - Depth 0.1 -Total Square (Post) (cm) 0.04 -Area of Debridement (cm) - Length 0.2 -Area of Debridement (cm) - Width 0.2 -Total Square (Area) (cm) 0.04 -Tunneling No -Undermining/Tunneling No -Circular Undermining No -Wound/Ulcer Outcome Not Healed -Ulcer Cleansing Rinsed/ Irrigated with Saline -Foul Odor after Cleansing No -Bioengineered Tissue No -Bleeding Controlled with Pressure -Treatment Response Procedure Tolerated Well -Offloading -Debridement - Open, 1st 20sq cm Yes -Debridement - Subq, 1st 20sq cm Pain Scale: 0-10 Numeric Is Patient Pain Free? Yes WC - Nurse 3 - General Ulcer D/C NN Start: 08/25/24 10:40 Freq: Status: Active Protocol: Activity Type Activity Date Activity User E-sign Co-sign Detail Recorded Client Recorded Date Recorded By Document 08/25/24 11:49 RB [id number] 08/25/24 11:51 RB Document 08/25/24 11:58 RB [id number] 08/25/24 11:59 RB Document 09/01/24 10:34 KW [id number] 09/01/24 10:35 KW Document 09/08/24 12:08 KW [id number] 09/08/24 12:08 KW 08/25/24 08/25/24 09/01/24 11:49 11:58 10:34 Wound Care Center Nurse 3 #9 Left Lateral Allen -Ulcer Cleansing Wound Cleanser -Primary Dressing Applied Promogran, Aquacel Extra, Silicone Border Optilok 6.5x10 Foam 6x6 -Primary Dressing Covered/Secured with -Aquacel Extra 1 -Optilok 5x5 1/2 -Optilok 6.5x10 1 -Promogran 1 -Silicone Border Foam 6x6 1 BLE -Lotion applied to leg before Yes compression wrap -Multi-Layered Wrap Application Unna Boot - Bilateral -Unna- Bilat (Qty applied) 1 RLE -Lotion applied to leg before Yes compression wrap -Tubular Bandage Double Layer -Size of Tubigrip Used Size F -Size F ($) 2 lle -Lotion applied to leg before Yes compression wrap -Tubular Bandage Double Layer -Size of Tubigrip Used Size F -Size F ($) 2 Treatment Response Procedure Tolerated Well Pain Scale: 0-10 Numeric Is Patient Pain Free? Yes Yes Yes WC - Visit Discharge Discharge Condition Stable Stable Ambulatory Status Ambulatory, Ambulatory, Walker Walker Transportation Private Auto Private Auto Medication Reconcilliation completed & No No provided to patient/care provider Clinical Summary of Care Provided Yes Yes 09/08/24 12:08 Wound Care Center Nurse 3 #9 Left Lateral Allen -Ulcer Cleansing -Primary Dressing Applied Aquacel Extra, Optilok 5x5 1/2 -Primary Dressing Covered/Secured with Dry Gauze & Roll Gauze, Secured with Tape -Aquacel Extra 1 -Optilok 5x5 1/2 1 -Optilok 6.5x10 -Promogran -Silicone Border Foam 6x6 BLE -Lotion applied to leg before compression wrap -Multi-Layered Wrap Application -Unna- Bilat (Qty applied) RLE -Lotion applied to leg before compression wrap -Tubular Bandage Double Layer -Size of Tubigrip Used Size F -Size F ($) 2 lle -Lotion applied to leg before compression wrap -Tubular Bandage Double Layer -Size of Tubigrip Used Size F -Size F ($) 2 Treatment Response Pain Scale: 0-10 Numeric Is Patient Pain Free? Yes WC - Visit Discharge Discharge Condition Stable Ambulatory Status Ambulatory Transportation Private Auto Medication Reconcilliation completed & No provided to patient/care provider Clinical Summary of Care Provided Yes 08/25/24 11:58 Wound Center by Zahira Nolasco pt instructed on dressing change with promogran and bordered foam then tubigrip Initialized on 08/25/24 11:58 - END OF NOTE Assessment/Plan Assessment/Plan (1) Non-pressure chronic ulcer left lower leg, limited to breakdown skin: CODE(S): L97.921 - Non-pressure chronic ulcer of unspecified part of left lower leg limited to breakdown of skin (2) Venous insufficiency: CODE(S): I87.2 - Venous insufficiency (chronic) (peripheral) (3) Edema of both lower extremities: CODE(S): R60.0 - Localized edema (4) Lymphedema: CODE(S): I89.0 - Lymphedema, not elsewhere classified (5) Essential hypertension: CODE(S): I10 - Essential (primary) hypertension (6) Morbid obesity with BMI of 45.0-49.9, adult: CODE(S): E66.01 - Morbid (severe) obesity due to excess calories; Z68.42 -Body mass index [BMI] 45.0-49.9, adult (7) Venous stasis 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: CODE(S): I83.023 - Varicose veins of left lower extremity with ulcer of ankle; L97.321 - Non-pressure 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 QUALIFIERS: Varicose vein presence: with varicose veins Qualified Code(s): I83.023 - Varicose veinsof left lower extremity with ulcer of ankle; L97.321 - Non-pressure 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 (8) Debility: CODE(S): R53.81 - Other malaise (9) Osteoarthritis: CODE(S): M19.90 - Unspecified osteoarthritis, unspecified site QUALIFIERS: Osteoarthritis location: multiple joints Osteoarthritis type: primary Qualified Code(s): M15.9 - Polyosteoarthritis, unspecified (10) COPD (chronic obstructive pulmonary disease): CODE(S): J44.9 - Chronic obstructive pulmonary disease, unspecified QUALIFIERS: COPD type: unspecified COPD Qualified Code(s): J44.9 - Chronic obstructive pulmonary disease, unspecified (11) Chronic hypoxemic respiratory failure: CODE(S): J96.11 - Chronic respiratory failure with hypoxia (12) Pulmonary hypertension: CODE(S): I27.20 - Pulmonary hypertension, unspecified (13) Hypothyroidism: CODE(S): E03.9 - Hypothyroidism, unspecified QUALIFIERS: Hypothyroidism type: unspecified Qualified Code(s): E03.9 - Hypothyroidism, unspecified (14) Type 2 diabetes mellitus: CODE(S): E11.9 - Type 2 diabetes mellitus without complications QUALIFIERS: Diabetes mellitus oil heaterman insulin use: without oil heaterman use Diabetes mellitus complication status: with other specified complication Qualified Code(s): E11.69 - Type 2 diabetes mellitus with other specified complication (15) DOLORES (obstructive sleep apnea): CODE(S): G47.33 - Obstructive sleep apnea (adult) (pediatric) PLAN: Plan Evaluation and debridement performed today in clinic as annotated above. At home wound-care instructions: Will continue to dress her left lower leg with Aquacel and super absorber and roll gauze changed daily for heavy drainage. She was instructed to keep dressings clean and dry. Will have her use lymphedema pumps for 60 minutes 2-3 times daily. Off-loading: The patient was instructed to avoid pressure and friction on the affected areas. Reposition every 2 hours at minimum. Avoid prolonged standing and/or dangling of legs. When seated, feet should be elevated at chest level. Frequent ambulation is encouraged. Diet: Patient encouraged to increase protein intake while taking caution to avoid high carbohydrateand/or sugar intake. Encouraged weight loss. Labs/cultures/imaging: Wound Culture of left allen ulcer showed pseudomonas and MRSA. Ciprofloxacin prescribed. Venous ultrasound showed incompetence of veins of left lower extremity and vascular performed an ablation on 07/27/2024. Culture showed E. faecalis, anaerobic bacteria and Pseudomonas advised to restart Ciprofloxacin and Flagyl was prescribed for Anaerobic bacteria. 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 She has been referred to infectious disease and they will see her 09/27/2024. We are going to try treating herwith Bactrizenia COLVIN until she sees Dr. Johnson. She is tolerating this. Encouraged her to get her CPAP mask to improve DOLORES and pulmonary HTN treatment compliance which is adding to her decompensated lymphedema. Follow-up: Will have her follow up in 2 weeks. Return sooner or report to the emergency room shouldsymptoms worsen, or new symptoms arise. Note: webtide speech recognition train control electronic technician software was used to create portions of this document. Sound-alike and misspelled words, as well as other train control electronic technician errors may be contained in the documentation. 09/15/24 1023 Cosigner Signature (if applicable): CC: ~ Signed [facility]03-21-2025 Progress note Author Sneha Rosa [facility] Note Date/Time September 08, 2024 2:2 4pm [facility] [address] [place] [address] Progress Note - Wound Care 09/08/24 1410 MR#: [id number] Acct: [id number] Name: LIZ WADSWORTH Rep #:[id number] : 1950 74 From: Sneha Roas DO PCP: Dr. Luis Cortés MD Status:R EG RCR Location: History of Present Illness Date of Service: 09/08/24 Chief Complaint: B/L LE ulcers, bilateral lower extremity swelling History of Wound: Liz is a pleasant 74 yo woman that presents to the wound center for bilateral lower extremity edema and blisters and drainage of her bilateral lower extremities. She has had increased edema the last 2 weeks and her legs started seeping a few days ago. She has been wearing her tubigrip compression and had been using the lymphedema pumps until they started seeping fluid. She tries to elevate her legs when she is sitting but is not always consistent with doing this. She has been wrapping her leg with gauze when it is seeping but otherwise has not been doing any regular dressings. Patient has been treated at the wound center in the past for similar wounds, most recently October 2023. She has also been seen in the vascular surgery clinic where she was evaluated her for BLE DVT and venous insufficiency. Patienthas a h/o provoked DVTs and has been off treatment with Eliquis since June 01/2023. GSV ablation has been done to her right lower leg. She has received lymphedema pumps that were ordered during her last treatment course and has beenusing these. Last venous study was 03/2022. Last A1C 01/2023 was 6.4%. Last TSH - 01/2022 Patient's medical history is also significant for CHF, COPD, T2DM, lymphedema. She has a CPAP but has not been using this due to needing a new mask. She statesthat a prescription was to be sent and she never received the mask. Her current mask has a hole in it. Subjective Subjective Liz returns today for treatment of edema to bilateral lower legs. She underwent venous ablation of left lower leg on 07/27/2024. She has been elevating her legs and using lymphedema pumps as directed. She tolerated Aquacel but had increased drainage and edema. She does continue to have drainage from left lateral lower leg and has mild erythema but no obvious ulcer, just skin breakdown. She denies fever, chills. Objective Data Objective Data Vital Signs: Vital Signs Temp Pulse Resp BP Pulse Ox O2 Del Method 97.7 F L 79 16 172/87 H 94 Room Air 09/08/24 11:01 09/08/24 11:01 09/08/24 11:01 09/08/24 11:01 08/19/24 00:41 09/08/24 11:01 Oxygen Delivery Method Room Air Weight: 140.16 kg Body Mass Index (BMI) 49.8 Lab / Micro Data Micro: Microbiology 09/01/24 10:27 Wound - Leg, Left Gram Stain - Final 09/01/24 10:27 Wound - Leg, Left Wound Culture - Final Achromobacter denitrificans Aerococcus viridans. Corynebacterium striatum Staphylococcus epidermidis Staphylococcus simulans 09/01/24 10:27 Wound - Leg, Left Anaerobic Culture - Final No anaerobic bacteria isolated. Physical Exam Const alert, oriented x3, no apparent distress and healthy appearing General Appearance: cooperative; Negative for combative or lethargic Orientation / Consciousness: awake Exam Limitations: no limitations Nutritional Appearance: obese HEENT normocephalic and head/scalp atraumatic Eyes EOMs intact bilaterally General Eye: normal appearance of both eyes Neck full ROM General: trachea midline Lymph Lymphatic: lymphedema severe and pitting Resp normal respiratory effort and no use of accessory muscles Effort and Inspection: Negative for labored, stridor or audible wheezes Cardio regular rate and regular rhythm Back/Spine Cervical Spine: cervical ROM normal Extremity full ROM, normal capillary refill and no clubbing, cyanosis or edema General Extremity: edema bilateral lower extremity Details: severe (with skin changes associated with lymphedema, thickened nodular appearance from mid allen to ankle) Skin no rashes or lesions noted General Skin Exam: erythema, venous stasis and dermatitis Wounds: wounds noted Wound Narrative: as in clinical panel, mildly decreased erythema and light serous drainage from lateral lower leg, nodular appearance of skin associated with lymphedema Neuro oriented x3, CN's II-XII intact bilaterally, no focal motor deficits and no sensory deficits noted Psych thought process normal, cooperative, affect normal, speech normal and activity/motor behavior normal Debridement Note Debridement Note Wound debrided: left lateral leg Laterality: Left Patient tolerated procedure: Patient tolerated procedure well No debridement was completed: No debridement was completed today Post-Debridement Measurements and Additional Note: Post-Debridement Measurements/Treatment WC - Nurse 1 - General Ulcer Assessment Start: 08/25/24 10:40 Freq: Status: Active Protocol: KELSEY Activity Type Activity Date Activity User E-sign Co-sign Detail Recorded Client Recorded Date Recorded By Document 08/25/24 10:40 RB [id number] 08/25/24 11:11 RB Document 09/01/24 09:54 KW [id number] 09/01/24 10:01 KW Document 09/08/24 11:01 KW [id number] 09/08/24 11:15 KW 08/25/24 09/01/24 09/08/24 10:40 09:54 11:01 - Today's Visit Information Type of service Follow-up Visit Follow-up Visit Follow-up Visit (Physician/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 (Physician/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 (Physician/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 ) ) ) Arrival Mode Ambulatory, Ambulatory, Ambulatory, Walker Walker Walker Transfer Assistance None Accompanied by Patient Identification Verified (Name & Yes Yes Yes ) Patient Requires Transmission-Based No Precautions Height and Weight Body Mass Index (BMI) 49.8 49.8 49.8 BMI Classification Obese Obese Obese Vital Signs Temperature (97.8 F-99.1 F) 97.6 F L 97.0 F L 97.7 F L Temperature Source Temporal Temporal Temporal Pulse Rate (60-100) 81 81 79 Pulse Location Monitor Monitor Monitor Respiratory Rate (12-18) 18 18 16 Respiratory rate source Observation Observation Observation Oxygen Delivery Method Room Air Room Air Blood Pressure (90/60-120/80) 148/68 H 170/82 H 172/87 H Blood Pressure Mean (mm Hg) 94 111 115 Source Monitor Monitor Monitor Position Semi-Fowlers Semi-Fowlers Semi-Fowlers Blood Pressure Location Left Arm Left Arm Left Arm History Since Last Visit- (Skip if this is Patient's initial visit) Have you changed medications since your No No No last visit? Any new allergies or adverse reactions No No No Had a fall/change in ADL's that may No No No increase risk of falls Signs or symptoms of abuse and/or No No No neglect since last visit Have you been in the hospital since your No No No last visit? Has dressing in place as prescribed Yes Yes Yes Has compression in place as prescribed Yes Yes Yes Has offloadiing in place as prescribed N/A N/A N/A Experienced any changes in pain level or No No No management Left Footwear Regular Shoe Regular Shoe Regular Shoe Right Footwear Regular Shoe Regular Shoe Regular Shoe Pain Scale: 0-10 Numeric Is Patient Pain Free? Yes Yes Yes WC - Nurse 1 - General Ulcer Measurement Start: 08/25/24 10:40 Freq: Status: Active Protocol: Activity Type Activity Date Activity User E-sign Co-sign Detail Recorded Client Recorded Date Recorded By Document 08/25/24 10:40 RB [id number] 08/25/24 11:11 RB Edit Result 08/25/24 10:40 RB (1) [id number] 08/25/24 11:49 RB Document 09/01/24 09:54 KW [id number] 09/01/24 10:01 KW Document 09/08/24 11:01 KW [id number] 09/08/24 11:15 KW (1) Left Ankle (cm) => 28.5 08/25/24 09/01/24 09/08/24 10:40 09:54 11:01 Wound Center Nurse 1 #9 Left Lateral Allen -Combined with other wound No -Current Size (cm) - Length 0.1 0.1 0.1 -Current Size (cm) - Width 0.1 0.1 0.1 -Current Size (cm) - Depth 0.1 0 0 -Total Square Cm 0.01 0.01 0.01 -Date of Last Picture (Recall this 09/01/24 field) -Photo Taken Yes -Tunneling No -Undermining/Tunneling No -Circular Undermining No -Exudate Amt Medium Large Large -Exudate Type Serosanguineous Serosanguineous Serosanguineous -Wound Margin Distinct, Indistinct, Non Indistinct, Non Outline -Visible -Visible Attached -Granulation Amt Large (67-100%) Large (67-100%) -Granulation Quality [place] Red -Slough/Fibrin Yes -Necrosis Amt Small (1-33%) -Necrotic Tissue Type Adherent Slough -Structure Exposed N/A -Texture (Adrianna-wound Skin Appearance) Assessed, Assessed Assessed Excoriation -Moisture (Adrianna-wound Skin Appearance) Weeping Assessed Assessed, Maceration -Color (Adrianna-wound Skin Appearance) Assessed Assessed, Assessed, Erythema Erythema -Temperature (Adrianna-wound Skin No Abnormality No Abnormality No Abnormality Appearance) (Pt Warm) (Pt Warm) (Pt Warm) -Tenderness on Palpation (Adrianna-wound No No No Skin Appearance) -Ulcer Cleansing Wound Cleanser Rinsed/ Soap and Water Irrigated with Saline -Foul Odor after Cleansing No No -Anesthetic Used 5% Lidocaine 4% Lidocaine Gel Solution,5% Lidocaine Gel Lower Limb Edema Present Yes Right Calf (cm) 55 57.7 50 Right Ankle (cm) 32.2 31 28.2 Left Calf (cm) 48 58.3 53 Left Ankle (cm) 28.5 31 29.7 WC - Nurse 2 - General Ulcer CM Notes Start: 08/25/24 10:40 Freq: Status: Active Protocol: Activity Type Activity Date Activity User E-sign Co-sign Detail Recorded Client Recorded Date Recorded By Document 08/25/24 11:15 [id number] 08/25/24 11:20 Document 09/01/24 10:24 [id number] 09/01/24 10:29 Document 09/08/24 11:48 [id number] 09/08/24 11:49 08/25/24 09/01/24 09/08/24 11:15 10:24 11:48 Wound Center Nurse 2 #9 Left Lateral Allen -Time 11:15 10:24 11:48 -Correct Patient Yes Yes Yes -Correct Side, Site, Position Yes Yes Yes -Correct Procedure Yes No No -Procedure Performed Yes No No -Type of Procedure Debridement -Clinical Debridement Subcutaneous -Tissue Removed Subcutaneous -Post Debridement (cm) - Length 1.0 0.5 -Post Debridement (cm) - Width 2.0 0.5 -Post Debridement (cm) - Depth 0.1 0.1 -Total Square (Post) (cm) 2.00 0.25 -Area of Debridement (cm) - Length 1.0 -Area of Debridement (cm) - Width 2.0 -Total Square (Area) (cm) 2.00 -Tunneling No No No -Undermining/Tunneling No No No -Circular Undermining No No No -Wound/Ulcer Outcome Not Healed Not Healed Healed- Epithelialized -Ulcer Cleansing Rinsed/ Rinsed/ Not Cleansed Irrigated with Irrigated with Saline Saline -Foul Odor after Cleansing No No No -Bioengineered Tissue No No -Bleeding Controlled with Pressure NA NA -Treatment Response Procedure Tolerated Well -Offloading No -Debridement - Subq, 1st 20sq cm Yes Pain Scale: 0-10 Numeric Is Patient Pain Free? Yes Yes Yes - Nurse 3 - General Ulcer D/C NN Start: 08/25/24 10:40 Freq: Status: Active Protocol: Activity Type Activity Date Activity User E-sign Co-sign Detail Recorded Client Recorded Date Recorded By Document 08/25/24 11:49 RB [id number] 08/25/24 11:51 RB Document 08/25/24 11:58 RB [id number] 08/25/24 11:59 RB Document 09/01/24 10:34 KW [id number] 09/01/24 10:35 KW Document 09/08/24 12:08 KW [id number] 09/08/24 12:08 KW 08/25/24 08/25/24 09/01/24 11:49 11:58 10:34 Wound Care Center Nurse 3 #9 Left Lateral Allen -Ulcer Cleansing Wound Cleanser -Primary Dressing Applied Promogran, Aquacel Extra, Silicone Border Optilok 6.5x10 Foam 6x6 -Primary Dressing Covered/Secured with -Aquacel Extra 1 -Optilok 5x5 1/2 -Optilok 6.5x10 1 -Promogran 1 -Silicone Border Foam 6x6 1 BLE -Lotion applied to leg before Yes compression wrap -Multi-Layered Wrap Application Unna Boot - Bilateral -Unna- Bilat (Qty applied) 1 RLE -Lotion applied to leg before Yes compression wrap -Tubular Bandage Double Layer -Size of Tubigrip Used Size F -Size F ($) 2 lle -Lotion applied to leg before Yes compression wrap -Tubular Bandage Double Layer -Size of Tubigrip Used Size F -Size F ($) 2 Treatment Response Procedure Tolerated Well Pain Scale: 0-10 Numeric Is Patient Pain Free? Yes Yes Yes WC - Visit Discharge Discharge Condition Stable Stable Ambulatory Status Ambulatory, Ambulatory, Walker Walker Transportation Private Auto Private Auto Medication Reconcilliation completed & No No provided to patient/care provider Clinical Summary of Care Provided Yes Yes 09/08/24 12:08 Wound Care Center Nurse 3 #9 Left Lateral Allen -Ulcer Cleansing -Primary Dressing Applied Aquacel Extra, Optilok 5x5 1/2 -Primary Dressing Covered/Secured with Dry Gauze & Roll Gauze, Secured with Tape -Aquacel Extra 1 -Optilok 5x5 1/2 1 -Optilok 6.5x10 -Promogran -Silicone Border Foam 6x6 BLE -Lotion applied to leg before compression wrap -Multi-Layered Wrap Application -Unna- Bilat (Qty applied) RLE -Lotion applied to leg before compression wrap -Tubular Bandage Double Layer -Size of Tubigrip Used Size F -Size F ($) 2 lle -Lotion applied to leg before compression wrap -Tubular Bandage Double Layer -Size of Tubigrip Used Size F -Size F ($) 2 Treatment Response Pain Scale: 0-10 Numeric Is Patient Pain Free? Yes WC - Visit Discharge Discharge Condition Stable Ambulatory Status Ambulatory Transportation Private Auto Medication Reconcilliation completed & No provided to patient/care provider Clinical Summary of Care Provided Yes 08/25/24 11:58 Wound Center by Zahira Nolasco pt instructed on dressing change with promogran and bordered foam then tubigrip Initialized on 08/25/24 11:58 - END OF NOTE Assessment/Plan Assessment/Plan (1) Non-pressure chronic ulcer left lower leg, limited to breakdown skin: CODE(S): L97.921 - Non-pressure chronic ulcer of unspecified part of left lower leg limited to breakdown of skin (2) Venous insufficiency: CODE(S): I87.2 - Venous insufficiency (chronic) (peripheral) (3) Edema of both lower extremities: CODE(S): R60.0 - Localized edema (4) Lymphedema: CODE(S): I89.0 - Lymphedema, not elsewhere classified (5) Essential hypertension: CODE(S): I10 - Essential (primary) hypertension (6) Morbid obesity with BMI of 45.0-49.9, adult: CODE(S): E66.01 - Morbid (severe) obesity due to excess calories; Z68.42 -Body mass index [BMI] 45.0-49.9, adult (7) Venous stasis 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: CODE(S): I83.023 - Varicose veins of left lower extremity with ulcer of ankle; L97.321 - Non-pressure 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 QUALIFIERS: Varicose vein presence: with varicose veins Qualified Code(s): I83.023 - Varicose veins of left lower extremity with ulcer of ankle; L97.321 - Non- pressure 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 (8) Debility: CODE(S): R53.81 - Other malaise (9) Osteoarthritis: CODE(S): M19.90 - Unspecified osteoarthritis, unspecified site QUALIFIERS: Osteoarthritis location: multiple joints Osteoarthritis type: primary Qualified Code(s): M15.9 - Polyosteoarthritis, unspecified (10) COPD (chronic obstructive pulmonary disease): CODE(S): J44.9 - Chronic obstructive pulmonary disease, unspecified QUALIFIERS: COPD type: unspecified COPD Qualified Code(s): J44.9 - Chronic obstructive pulmonary disease, unspecified (11) Chronic hypoxemic respiratory failure: CODE(S): J96.11 - Chronic respiratory failure with hypoxia (12) Pulmonary hypertension: CODE(S): I27.20 - Pulmonary hypertension, unspecified (13) Hypothyroidism: CODE(S): E03.9 - Hypothyroidism, unspecified QUALIFIERS: Hypothyroidism type: unspecified Qualified Code(s): E03.9 - Hypothyroidism, unspecified (14) Type 2 diabetes mellitus: CODE(S): E11.9 - Type 2 diabetes mellitus without complications QUALIFIERS: Diabetes mellitus complication status: with other specified complication Diabetes mellitus residential insulin use: without residential use Qualified Code(s): E11.69 - Type 2 diabetes mellitus with other specified complication (15) DOLORES (obstructive sleep apnea): CODE(S): G47.33 - Obstructive sleep apnea (adult) (pediatric) PLAN: Plan Evaluation and debridement performed today in clinic as annotated above. At home wound-care instructions: Will dress her left lower leg with Aquacel and super absorber and roll gauze changed daily for heavy drainage. She was instructed to keep dressings clean and dry. Will have her use lymphedema pumps for 60 minutes 2-3 times daily. Off-loading: The patient was instructed to avoid pressure and friction on the affected areas. Reposition every 2 hours at minimum. Avoid prolonged standing and/or dangling of legs. When seated, feet should be elevated at chest level. Frequent ambulation is encouraged. Diet: Patient encouraged to increase protein intake while taking caution to avoid high carbohydrate and/or sugar intake. Encouraged weight loss. Labs/cultures/imaging: Wound Culture of left allen ulcer showed pseudomonas and MRSA. Ciprofloxacin prescribed. Venous ultrasound showed incompetence of veins of left lower extremity and vascular performed an ablation on 07/27/2024. Culture showed E. faecalis, anaerobic bacteria and Pseudomonas advised to restart Ciprofloxacin and Flagyl was prescribed for Anaerobic bacteria. 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 She has been referred to infectious disease and they will see her 09/27/2024. We are going to try treating her with Bactrim DS. Encouraged her to get her CPAP mask to improve DOLORES and pulmonary HTN treatment compliance which is adding to her decompensated lymphedema. Follow-up: Will have her follow up in 1 week. Return sooner or report to the emergency room should symptoms worsen, or new symptoms arise. Note: webtide speech recognition train control electronic technician software was used to create portions of this document. Sound-alike and misspelled words, as well as other train control electronic technician errors may be contained in the documentation. 09/08/24 1424 <Electronically signed by Sneha Rosa DO> Cosigner Signature (if applicable): CC: ~ Signed [facility] [facility] Work Phone: 1(128) 963-150303-21-2025 Progress note [facility] [address] [place] [address] Progress Note - Wound Care 09/08/24 1410 MR#: [id number] Acct: [id number] Name: LIZ WADSWORTH Rep #:[id number] : 1950 74 From: Sneha Rosa DO PCP: Dr. Luis Cortés MD Status:R EG RCR Location: History of Present Illness Date of Service: 09/08/24 Chief Complaint: B/L LE ulcers, bilateral lower extremity swelling History of Wound: Liz is a pleasant 74 yo woman that presents to the wound center for bilateral lower extremity edema and blisters and drainage of her bilateral lower extremities. She has had increased edema the last 2 weeks and her legs started seeping a few days ago. She has been wearing her tubigrip compression and had been using the lymphedema pumps until they started seeping fluid. She tries to elevate her legs when she is sitting but is not always consistent with doing this. She has been wrapping her leg with gauze when it is seeping but otherwise has not been doing any regular dressings. Patient has been treated at the wound center in the past for similar wounds, most recently September/October 2023. She has also been seen in the vascular surgery clinic where she was evaluated her for BLE DVT and venous insufficiency. Patienthas a h/o provoked DVTs and has been off treatment with Eliquis since June 01/2023. GSV ablation has been done to her right lower leg. She has received lymphedema pumps that were ordered during her last treatment course and has beenusing these. Last venous study was 03/2022. Last A1C 01/2023 was 6.4%. Last TSH - 01/2022 Patient's medical history is also significant for CHF, COPD, T2DM, lymphedema. She has a CPAP but has not been using this due to needing a new mask. She statesthat a prescription was to be sent and she never received the mask. Her current mask has a hole in it. Subjective Subjective Liz returns today for treatment of edema to bilateral lower legs. She underwent venous ablation of left lower leg on 07/27/2024. She has been elevating her legs and using lymphedema pumps as directed. She tolerated Aquacel but had increased drainage and edema. She does continue to have drainage from left lateral lower leg and has mild erythema but no obvious ulcer, just skin breakdown. She deniesfever, chills. Objective Data Objective Data Vital Signs: Vital Signs Temp Pulse Resp BP Pulse Ox O2 Del Method 97.7 F L 79 16 172/87 H 94 Room Air 09/08/24 11:01 09/08/24 11:01 09/08/24 11:01 09/08/24 11:01 08/19/24 00:41 09/08/24 11:01 Oxygen Delivery Method Room Air Weight: 140.16 kg Body Mass Index (BMI) 49.8 Lab / Micro Data Micro: Microbiology 09/01/24 10:27 Wound - Leg, Left Gram Stain - Final 09/01/24 10:27 Wound - Leg, Left Wound Culture - Final Achromobacter denitrificans Aerococcus viridans. Corynebacterium striatum Staphylococcus epidermidis Staphylococcus simulans 09/01/24 10:27 Wound - Leg, Left Anaerobic Culture - Final No anaerobic bacteria isolated. Physical Exam Const alert, oriented x3, no apparent distress and healthy appearing General Appearance: cooperative; Negative for combative or lethargic Orientation / Consciousness: awake Exam Limitations: no limitations Nutritional Appearance: obese HEENT normocephalic and head/scalp atraumatic Eyes EOMs intact bilaterally General Eye: normal appearance of both eyes Neck full ROM General: trachea midline Lymph Lymphatic: lymphedema severe and pitting Resp normal respiratory effort and no use of accessory muscles Effort and Inspection: Negative for labored, stridor or audible wheezes Cardio regular rate and regular rhythm Back/Spine Cervical Spine: cervical ROM normal Extremity full ROM, normal capillary refill and no clubbing, cyanosis or edema General Extremity: edema bilateral lower extremity Details: severe (with skin changes associated with lymphedema, thickened nodular appearance from mid allen to ankle) Skin no rashes or lesions noted General Skin Exam: erythema, venous stasis and dermatitis Wounds: wounds noted Wound Narrative: as in clinical panel, mildly decreased erythema and light serous drainage from lateral lower leg, nodular appearance of skin associated with lymphedema Neuro oriented x3, CN's II-XII intact bilaterally, no focal motor deficits and no sensory deficits noted Psych thought process normal, cooperative, affect normal, speech normal and activity/motor behavior normal Debridement Note Debridement Note Wound debrided: left lateral leg Laterality: Left Patient tolerated procedure: Patient tolerated procedure well No debridement was completed: No debridement was completed today Post-Debridement Measurements and Additional Note: Post-Debridement Measurements/Treatment WC - Nurse 1 - General Ulcer Assessment Start: 08/25/24 10:40 Freq: Status: Active Protocol: KELSEY Activity Type Activity Date Activity User E-sign Co-sign Detail Recorded Client Recorded Date Recorded By Document 08/25/24 10:40 RB [id number] 08/25/24 11:11 RB Document 09/01/24 09:54 KW [id number] 09/01/24 10:01 KW Document 09/08/24 11:01 KW [id number] 09/08/24 11:15 KW 08/25/24 09/01/24 09/08/24 10:40 09:54 11:01 WC - Today's Visit Information Type of service Follow-up Visit Follow-up Visit Follow-up Visit (Physician/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 (Physician/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 (Physician/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 ) ) ) Arrival Mode Ambulatory, Ambulatory, Ambulatory, Walker Walker Walker Transfer Assistance None Accompanied by Patient Identification Verified (Name & Yes Yes Yes ) Patient Requires Transmission-Based No Precautions Height and Weight Body Mass Index (BMI) 49.8 49.8 49.8 BMI Classification Obese Obese Obese Vital Signs Temperature (97.8 F-99.1 F) 97.6 F L 97.0 F L 97.7 F L Temperature Source Temporal Temporal Temporal Pulse Rate (60-100) 81 81 79 Pulse Location Monitor Monitor Monitor Respiratory Rate (12-18) 18 18 16 Respiratory rate source Observation Observation Observation Oxygen Delivery Method Room Air Room Air Blood Pressure (90/60-120/80) 148/68 H 170/82 H 172/87 H Blood Pressure Mean (mm Hg) 94 111 115 Source Monitor Monitor Monitor Position Semi-Fowlers Semi-Fowlers Semi-Fowlers Blood Pressure Location Left Arm Left Arm Left Arm History Since Last Visit- (Skip if this is Patient's initial visit) Have you changed medications since your No No No last visit? Any new allergies or adverse reactions No No No Had a fall/change in ADL's that may No No No increase risk of falls Signs or symptoms of abuse and/or No No No neglect since last visit Have you been in the hospital since your No No No last visit? Has dressing in place as prescribed Yes Yes Yes Has compression in place as prescribed Yes Yes Yes Has offloadiing in place as prescribed N/A N/A N/A Experienced any changes in pain level or No No No management Left Footwear Regular Shoe Regular Shoe Regular Shoe Right Footwear Regular Shoe Regular Shoe Regular Shoe Pain Scale: 0-10 Numeric Is Patient Pain Free? Yes Yes Yes WC - Nurse 1 - General Ulcer Measurement Start: 08/25/24 10:40 Freq: Status: Active Protocol: Activity Type Activity Date Activity User E-sign Co-sign Detail Recorded Client Recorded Date Recorded By Document 08/25/24 10:40 RB [id number] 08/25/24 11:11 RB Edit Result 08/25/24 10:40 RB (1) [id number] 08/25/24 11:49 RB Document 09/01/24 09:54 KW [id number] 09/01/24 10:01 KW Document 09/08/24 11:01 KW [id number] 09/08/24 11:15 KW (1) Left Ankle (cm) => 28.5 08/25/24 09/01/24 09/08/24 10:40 09:54 11:01 Wound Center Nurse 1 #9 Left Lateral Allen -Combined with other wound No -Current Size (cm) - Length 0.1 0.1 0.1 -Current Size (cm) - Width 0.1 0.1 0.1 -Current Size (cm) - Depth 0.1 0 0 -Total Square Cm 0.01 0.01 0.01 -Date of Last Picture (Recall this 09/01/24 field) -Photo Taken Yes -Tunneling No -Undermining/Tunneling No -Circular Undermining No -Exudate Amt Medium Large Large -Exudate Type Serosanguineous Serosanguineous Serosanguineous -Wound Margin Distinct, Indistinct, Non Indistinct, Non Outline -Visible -Visible Attached -Granulation Amt Large (67-100%) Large (67-100%) -Granulation Quality [place] Red -Slough/Fibrin Yes -Necrosis Amt Small (1-33%) -Necrotic Tissue Type Adherent Slough -Structure Exposed N/A -Texture (Adrianna-wound Skin Appearance) Assessed, Assessed Assessed Excoriation -Moisture (Adrianna-wound Skin Appearance) Weeping Assessed Assessed, Maceration -Color (Adrianna-wound Skin Appearance) Assessed Assessed, Assessed, Erythema Erythema -Temperature (Adrianna-wound Skin No Abnormality No Abnormality No Abnormality Appearance) (Pt Warm) (Pt Warm) (Pt Warm) -Tenderness on Palpation (Adrianna-wound No No No Skin Appearance) -Ulcer Cleansing Wound Cleanser Rinsed/ Soap and Water Irrigated with Saline -Foul Odor after Cleansing No No -Anesthetic Used 5% Lidocaine 4% Lidocaine Gel Solution,5% Lidocaine Gel Lower Limb Edema Present Yes Right Calf (cm) 55 57.7 50 Right Ankle (cm) 32.2 31 28.2 Left Calf (cm) 48 58.3 53 Left Ankle (cm) 28.5 31 29.7 WC - Nurse 2 - General Ulcer CM Notes Start: 08/25/24 10:40 Freq: Status: Active Protocol: Activity Type Activity Date Activity User E-sign Co-sign Detail Recorded Client Recorded Date Recorded By Document 08/25/24 11:15 [id number] 08/25/24 11:20 GM Document 09/01/24 10:24 [id number] 09/01/24 10:29 Document 09/08/24 11:48 [id number] 09/08/24 11:49 08/25/24 09/01/24 09/08/24 11:15 10:24 11:48 Wound Center Nurse 2 #9 Left Lateral Allen -Time 11:15 10:24 11:48 -Correct Patient Yes Yes Yes -Correct Side, Site, Position Yes Yes Yes -Correct Procedure Yes No No -Procedure Performed Yes No No -Type of Procedure Debridement -Clinical Debridement Subcutaneous -Tissue Removed Subcutaneous -Post Debridement (cm) - Length 1.0 0.5 -Post Debridement (cm) - Width 2.0 0.5 -Post Debridement (cm) - Depth 0.1 0.1 -Total Square (Post) (cm) 2.00 0.25 -Area of Debridement (cm) - Length 1.0 -Area of Debridement (cm) - Width 2.0 -Total Square (Area) (cm) 2.00 -Tunneling No No No -Undermining/Tunneling No No No -Circular Undermining No No No -Wound/Ulcer Outcome Not Healed Not Healed Healed- Epithelialized -Ulcer Cleansing Rinsed/ Rinsed/ Not Cleansed Irrigated with Irrigated with Saline Saline -Foul Odor after Cleansing No No No -Bioengineered Tissue No No -Bleeding Controlled with Pressure NA NA -Treatment Response Procedure Tolerated Well -Offloading No -Debridement - Subq, 1st 20sq cm Yes Pain Scale: 0-10 Numeric Is Patient Pain Free? Yes Yes Yes - Nurse 3 - General Ulcer D/C NN Start: 08/25/24 10:40 Freq: Status: Active Protocol: Activity Type Activity Date Activity User E-sign Co-sign Detail Recorded Client Recorded Date Recorded By Document 08/25/24 11:49 RB [id number] 08/25/24 11:51 RB Document 08/25/24 11:58 RB [id number] 08/25/24 11:59 RB Document 09/01/24 10:34 KW [id number] 09/01/24 10:35 KW Document 09/08/24 12:08 KW [id number] 09/08/24 12:08 KW 08/25/24 08/25/24 09/01/24 11:49 11:58 10:34 Wound Care Center Nurse 3 #9 Left Lateral Allen -Ulcer Cleansing Wound Cleanser -Primary Dressing Applied Promogran, Aquacel Extra, Silicone Border Optilok 6.5x10 Foam 6x6 -Primary Dressing Covered/Secured with -Aquacel Extra 1 -Optilok 5x5 1/2 -Optilok 6.5x10 1 -Promogran 1 -Silicone Border Foam 6x6 1 BLE -Lotion applied to leg before Yes compression wrap -Multi-Layered Wrap Application Unna Boot - Bilateral -Unna- Bilat (Qty applied) 1 RLE -Lotion applied to leg before Yes compression wrap -Tubular Bandage Double Layer -Size of Tubigrip Used Size F -Size F ($) 2 lle -Lotion applied to leg before Yes compression wrap -Tubular Bandage Double Layer -Size of Tubigrip Used Size F -Size F ($) 2 Treatment Response Procedure Tolerated Well Pain Scale: 0-10 Numeric Is Patient Pain Free? Yes Yes Yes - Visit Discharge Discharge Condition Stable Stable Ambulatory Status Ambulatory, Ambulatory, Walker Walker Transportation Private Auto Private Auto Medication Reconcilliation completed & No No provided to patient/care provider Clinical Summary of Care Provided Yes Yes 09/08/24 12:08 Wound Care Center Nurse 3 #9 Left Lateral Allen -Ulcer Cleansing -Primary Dressing Applied Aquacel Extra, Optilok 5x5 1/2 -Primary Dressing Covered/Secured with Dry Gauze & Roll Gauze, Secured with Tape -Aquacel Extra 1 -Optilok 5x5 1/2 1 -Optilok 6.5x10 -Promogran -Silicone Border Foam 6x6 BLE -Lotion applied to leg before compression wrap -Multi-Layered Wrap Application -Unna- Bilat (Qty applied) RLE -Lotion applied to leg before compression wrap -Tubular Bandage Double Layer -Size of Tubigrip Used Size F -Size F ($) 2 lle -Lotion applied to leg before compression wrap -Tubular Bandage Double Layer -Size of Tubigrip Used Size F -Size F ($) 2 Treatment Response Pain Scale: 0-10 Numeric Is Patient Pain Free? Yes WC - Visit Discharge Discharge Condition Stable Ambulatory Status Ambulatory Transportation Private Auto Medication Reconcilliation completed & No provided to patient/care provider Clinical Summary of Care Provided Yes 08/25/24 11:58 Wound Center by Zahira Nolasco pt instructed on dressing change with promogran and bordered foam then tubigrip Initialized on 08/25/24 11:58 - END OF NOTE Assessment/Plan Assessment/Plan (1) Non-pressure chronic ulcer left lower leg, limited to breakdown skin: CODE(S): L97.921 - Non-pressure chronic ulcer of unspecified part of left lower leg limited to breakdown of skin (2) Venous insufficiency: CODE(S): I87.2 - Venous insufficiency (chronic) (peripheral) (3) Edema of both lower extremities: CODE(S): R60.0 - Localized edema (4) Lymphedema: CODE(S): I89.0 - Lymphedema, not elsewhere classified (5) Essential hypertension: CODE(S): I10 - Essential (primary) hypertension (6) Morbid obesity with BMI of 45.0-49.9, adult: CODE(S): E66.01 - Morbid (severe) obesity due to excess calories; Z68.42 -Body mass index [BMI] 45.0-49.9, adult (7) Venous stasis 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: CODE(S): I83.023 - Varicose veins of left lower extremity with ulcer of ankle; L97.321 - Non-pressure 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 QUALIFIERS: Varicose vein presence: with varicose veins Qualified Code(s): I83.023 - Varicose veinsof left lower extremity with ulcer of ankle; L97.321 - Non-pressure 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 (8) Debility: CODE(S): R53.81 - Other malaise (9) Osteoarthritis: CODE(S): M19.90 - Unspecified osteoarthritis, unspecified site QUALIFIERS: Osteoarthritis location: multiple joints Osteoarthritis type: primary Qualified Code(s): M15.9 - Polyosteoarthritis, unspecified (10) COPD (chronic obstructive pulmonary disease): CODE(S): J44.9 - Chronic obstructive pulmonary disease, unspecified QUALIFIERS: COPD type: unspecified COPD Qualified Code(s): J44.9 - Chronic obstructive pulmonary disease, unspecified (11) Chronic hypoxemic respiratory failure: CODE(S): J96.11 - Chronic respiratory failure with hypoxia (12) Pulmonary hypertension: CODE(S): I27.20 - Pulmonary hypertension, unspecified (13) Hypothyroidism: CODE(S): E03.9 - Hypothyroidism, unspecified QUALIFIERS: Hypothyroidism type: unspecified Qualified Code(s): E03.9 - Hypothyroidism, unspecified (14) Type 2 diabetes mellitus: CODE(S): E11.9 - Type 2 diabetes mellitus without complications QUALIFIERS: Diabetes mellitus complication status: with other specified complication Diabetes mellitus residential insulin use: without oil heaterman use Qualified Code(s): E11.69 - Type 2 diabetes mellitus with other specified complication (15) DOLORES (obstructive sleep apnea): CODE(S): G47.33 - Obstructive sleep apnea (adult) (pediatric) PLAN: Plan Evaluation and debridement performed today in clinic as annotated above. At home wound-care instructions: Will dress her left lower leg with Aquacel and super absorber and roll gauze changed daily for heavy drainage. She was instructed to keep dressings clean and dry. Will have her use lymphedema pumps for 60 minutes 2-3 times daily. Off-loading: The patient was instructed to avoid pressure and friction on the affected areas. Reposition every 2 hours at minimum. Avoid prolonged standing and/or dangling of legs. When seated, feet should be elevated at chest level. Frequent ambulation is encouraged. Diet: Patient encouraged to increase protein intake while taking caution to avoid high carbohydrateand/or sugar intake. Encouraged weight loss. Labs/cultures/imaging: Wound Culture of left allen ulcer showed pseudomonas and MRSA. Ciprofloxacin prescribed. Venous ultrasound showed incompetence of veins of left lower extremity and vascular performed an ablation on 07/27/2024. Culture showed E. faecalis, anaerobic bacteria and Pseudomonas advised to restart Ciprofloxacin and Flagyl was prescribed for Anaerobic bacteria. 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 She has been referred to infectious disease and they will see her 09/27/2024. We are going to try treating herwith Karinerizenia DS. Encouraged her to get her CPAP mask to improve DOLORES and pulmonary HTN treatment compliance which is adding to her decompensated lymphedema. Follow-up: Will have her follow up in 1 week. Return sooner or report to the emergency room should symptoms worsen, or new symptoms arise. Note: webtide speech recognition train control electronic technician software was used to create portions of this document. Sound-alike and misspelled words, as well as other train control electronic technician errors may be contained in the documentation. 09/08/24 1424 Cosigner Signature (if applicable): CC: ~ Signed [facility]03-14-2025 Progress note Author Sneha Rosa [facility] Note Date/Time September 01, 2024 1:3 9pm [facility] [address] [place] [address] Progress Note - Wound Care 09/01/24 1332 MR#: [id number] Acct: [id number] Name: LIZ WADSWORTH Rep #:[id number] : 1950 74 From: Sneha Rosa DO PCP: Dr. Luis Cortés MD Status:R EG RCR Location: History of Present Illness Date of Service: 09/01/24 Chief Complaint: B/L LE ulcers, bilateral lower extremity swelling History of Wound: Liz is a pleasant 74 yo woman that presents to the wound center for bilateral lower extremity edema and blisters and drainage of her bilateral lower extremities. She has had increased edema the last 2 weeks and her legs started seeping a few days ago. She has been wearing her tubigrip compression and had been using the lymphedema pumps until they started seeping fluid. She tries to elevate her legs when she is sitting but is not always consistent with doing this. She has been wrapping her leg with gauze when it is seeping but otherwise has not been doing any regular dressings. Patient has been treated at the wound center in the past for similar wounds, most recently October 2023. She has also been seen in the vascular surgery clinic where she was evaluated her for BLE DVT and venous insufficiency. Patienthas a h/o provoked DVTs and has been off treatment with Eliquis since June 01/2023. GSV ablation has been done to her right lower leg. She has received lymphedema pumps that were ordered during her last treatment course and has beenusing these. Last venous study was 03/2022. Last A1C 01/2023 was 6.4%. Last TSH - 01/2022 Patient's medical history is also significant for CHF, COPD, T2DM, lymphedema. She has a CPAP but has not been using this due to needing a new mask. She statesthat a prescription was to be sent and she never received the mask. Her current mask has a hole in it. Subjective Subjective Liz returns today for treatment of edema to bilateral lower legs. She underwent venous ablation of left lower leg on 07/27/2024. She has been elevating her legs and using lymphedema pumps as directed. She tolerated Aquacel but had increased drainage and edema. She does continue to have drainage from left lateral lower leg and has mild erythema but no obvious ulcer, just skin breakdown. She denies fever, chills. Objective Data Objective Data Vital Signs: Vital Signs Temp Pulse Resp BP Pulse Ox O2 Del Method 97.0 F L 81 18 170/82 H 94 Room Air 09/01/24 09:54 09/01/24 09:54 09/01/24 09:54 09/01/24 09:54 08/19/24 00:41 09/01/24 09:54 Oxygen Delivery Method Room Air Weight: 140.16 kg Body Mass Index (BMI) 49.8 Physical Exam Const alert, oriented x3, no apparent distress and healthy appearing General Appearance: cooperative; Negative for combative or lethargic Orientation / Consciousness: awake Exam Limitations: no limitations Nutritional Appearance: obese HEENT normocephalic and head/scalp atraumatic Eyes EOMs intact bilaterally General Eye: normal appearance of both eyes Neck full ROM General: trachea midline Lymph Lymphatic: lymphedema severe and pitting Resp normal respiratory effort and no use of accessory muscles Effort and Inspection: Negative for labored, stridor or audible wheezes Cardio regular rate and regular rhythm Back/Spine Cervical Spine: cervical ROM normal Extremity full ROM, normal capillary refill and no clubbing, cyanosis or edema General Extremity: edema bilateral lower extremity Details: severe (with skin changes associated with lymphedema, thickened nodular appearance from mid allen to ankle) Skin no rashes or lesions noted General Skin Exam: erythema, venous stasis and dermatitis Wounds: wounds noted Wound Narrative: as in clinical panel, mildly decreased erythema and light serous drainage from lateral lower leg, nodular appearance of skin associated with lymphedema Neuro oriented x3, CN's II-XII intact bilaterally, no focal motor deficits and no sensory deficits noted Psych thought process normal, cooperative, affect normal, speech normal and activity/motor behavior normal Debridement Note Debridement Note Wound debrided: Left lateral lower leg Laterality: Left Type of Debridement: Excisional debridement Anesthesia Used: 4% Lidocaine Solution Depth: Down to and including healthy tissue and in the subcutaneous layer Percentage of wound debrided: 100 Instrument Used: 3mm curette Tissue Removed: yellow slough and devitalized tissue Severity: Fat Layer Exposed Amount of bleeding with debridement: Mild Bleeding Controlled with: Compression and gauze Patient tolerated procedure: Patient tolerated procedure well Post-Debridement Measurements and Additional Note: Post-Debridement Measurements/Treatment - Nurse 1 - General Ulcer Assessment Start: 08/25/24 10:40 Freq: Status: Active Protocol: .JULIAN Activity Type Activity Date Activity User E-sign Co-sign Detail Recorded Client Recorded Date Recorded By Document 08/25/24 10:40 RB [id number] 08/25/24 11:11 RB Document 09/01/24 09:54 [id number] 09/01/24 10:01 KW 08/25/24 09/01/24 10:40 09:54 - Today's Visit Information Type of service Follow-up Visit Follow-up Visit (Physician/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 (Physician/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 ) ) Arrival Mode Ambulatory, Ambulatory, Walker Walker Transfer Assistance None Patient Identification Verified (Name & Yes Yes ) Patient Requires Transmission-Based No Precautions Height and Weight Body Mass Index (BMI) 49.8 49.8 BMI Classification Obese Obese Vital Signs Temperature (97.8 F-99.1 F) 97.6 F L 97.0 F L Temperature Source Temporal Temporal Pulse Rate (60-100) 81 81 Pulse Location Monitor Monitor Respiratory Rate (12-18) 18 18 Respiratory rate source Observation Observation Oxygen Delivery Method Room Air Blood Pressure (90/60-120/80) 148/68 H 170/82 H Blood Pressure Mean (mm Hg) 94 111 Source Monitor Monitor Position Semi-Fowlers Semi-Fowlers Blood Pressure Location Left Arm Left Arm History Since Last Visit- (Skip if this is Patient's initial visit) Have you changed medications since your No No last visit? Any new allergies or adverse reactions No No Had a fall/change in ADL's that may No No increase risk of falls Signs or symptoms of abuse and/or No No neglect since last visit Have you been in the hospital since your No No last visit? Has dressing in place as prescribed Yes Yes Has compression in place as prescribed Yes Yes Has offloadiing in place as prescribed N/A N/A Experienced any changes in pain level or No No management Left Footwear Regular Shoe Regular Shoe Right Footwear Regular Shoe Regular Shoe Pain Scale: 0-10 Numeric Is Patient Pain Free? Yes Yes WC - Nurse 1 - General Ulcer Measurement Start: 08/25/24 10:40 Freq: Status: Active Protocol: Activity Type Activity Date Activity User E-sign Co-sign Detail Recorded Client Recorded Date Recorded By Document 08/25/24 10:40 RB [id number] 08/25/24 11:11 RB Edit Result 08/25/24 10:40 RB (1) [id number] 08/25/24 11:49 RB Document 09/01/24 09:54 KW [id number] 09/01/24 10:01 KW (1) Left Ankle (cm) => 28.5 08/25/24 09/01/24 10:40 09:54 Wound Center Nurse 1 #9 Left Lateral Allen -Combined with other wound No -Current Size (cm) - Length 0.1 0.1 -Current Size (cm) - Width 0.1 0.1 -Current Size (cm) - Depth 0.1 0 -Total Square Cm 0.01 0.01 -Date of Last Picture (Recall this 09/01/24 field) -Photo Taken Yes -Tunneling No -Undermining/Tunneling No -Circular Undermining No -Exudate Amt Medium Large -Exudate Type Serosanguineous Serosanguineous -Wound Margin Distinct, Indistinct, Non Outline -Visible Attached -Granulation Amt Large (67-100%) Large (67-100%) -Granulation Quality [place] Red -Slough/Fibrin Yes -Necrosis Amt Small (1-33%) -Necrotic Tissue Type Adherent Slough -Structure Exposed N/A -Texture (Adrianna-wound Skin Appearance) Assessed, Assessed Excoriation -Moisture (Adrianna-wound Skin Appearance) Weeping Assessed -Color (Adrianna-wound Skin Appearance) Assessed Assessed, Erythema -Temperature (Adrianna-wound Skin No Abnormality No Abnormality Appearance) (Pt Warm) (Pt Warm) -Tenderness on Palpation (Adrianna-wound No No Skin Appearance) -Ulcer Cleansing Wound Cleanser Rinsed/ Irrigated with Saline -Foul Odor after Cleansing No No -Anesthetic Used 5% Lidocaine 4% Lidocaine Gel Solution,5% Lidocaine Gel Lower Limb Edema Present Yes Right Calf (cm) 55 57.7 Right Ankle (cm) 32.2 31 Left Calf (cm) 48 58.3 Left Ankle (cm) 28.5 31 WC - Nurse 2 - General Ulcer CM Notes Start: 08/25/24 10:40 Freq: Status: Active Protocol: Activity Type Activity Date Activity User E-sign Co-sign Detail Recorded Client Recorded Date Recorded By Document 08/25/24 11:15 [id number] 08/25/24 11:20 Document 09/01/24 10:24 [id number] 09/01/24 10:29 08/25/24 09/01/24 11:15 10:24 Wound Center Nurse 2 #9 Left Lateral Allen -Time 11:15 10:24 -Correct Patient Yes Yes -Correct Side, Site, Position Yes Yes -Correct Procedure Yes No -Procedure Performed Yes No -Type of Procedure Debridement -Clinical Debridement Subcutaneous -Tissue Removed Subcutaneous -Post Debridement (cm) - Length 1.0 0.5 -Post Debridement (cm) - Width 2.0 0.5 -Post Debridement (cm) - Depth 0.1 0.1 -Total Square (Post) (cm) 2.00 0.25 -Area of Debridement (cm) - Length 1.0 -Area of Debridement (cm) - Width 2.0 -Total Square (Area) (cm) 2.00 -Tunneling No No -Undermining/Tunneling No No -Circular Undermining No No -Wound/Ulcer Outcome Not Healed Not Healed -Ulcer Cleansing Rinsed/ Rinsed/ Irrigated with Irrigated with Saline Saline -Foul Odor after Cleansing No No -Bioengineered Tissue No No -Bleeding Controlled with Pressure NA -Treatment Response Procedure Tolerated Well -Offloading No -Debridement - Subq, 1st 20sq cm Yes Pain Scale: 0-10 Numeric Is Patient Pain Free? Yes Yes WC - Nurse 3 - General Ulcer D/C NN Start: 08/25/24 10:40 Freq: Status: Active Protocol: Activity Type Activity Date Activity User E-sign Co-sign Detail Recorded Client Recorded Date Recorded By Document 08/25/24 11:49 RB [id number] 08/25/24 11:51 RB Document 08/25/24 11:58 RB [id number] 08/25/24 11:59 RB Document 09/01/24 10:34 KW [id number] 09/01/24 10:35 KW 08/25/24 08/25/24 09/01/24 11:49 11:58 10:34 Wound Care Center Nurse 3 #9 Left Lateral Allen -Ulcer Cleansing Wound Cleanser -Primary Dressing Applied Promogran, Aquacel Extra, Silicone Border Optilok 6.5x10 Foam 6x6 -Aquacel Extra 1 -Optilok 6.5x10 1 -Promogran 1 -Silicone Border Foam 6x6 1 BLE -Lotion applied to leg before Yes compression wrap -Multi-Layered Wrap Application Unna Boot - Bilateral -Unna- Bilat (Qty applied) 1 RLE -Lotion applied to leg before Yes compression wrap -Tubular Bandage Double Layer -Size of Tubigrip Used Size F -Size F ($) 2 left -Lotion applied to leg before Yes compression wrap -Tubular Bandage Double Layer -Size of Tubigrip Used Size F -Size F ($) 2 Treatment Response Procedure Tolerated Well Pain Scale: 0-10 Numeric Is Patient Pain Free? Yes Yes Yes WC - Visit Discharge Discharge Condition Stable Stable Ambulatory Status Ambulatory, Ambulatory, Walker Walker Transportation Private Auto Private Auto Medication Reconcilliation completed & No No provided to patient/care provider Clinical Summary of Care Provided Yes Yes 08/25/24 11:58 Wound Center by Zahira Nolasco pt instructed on dressing change with promogran and bordered foam then tubigrip Initialized on 08/25/24 11:58 - END OF NOTE Assessment/Plan Assessment/Plan (1) Non-pressure chronic ulcer left lower leg, limited to breakdown skin: CODE(S): L97.921 - Non-pressure chronic ulcer of unspecified part of left lower leg limited to breakdown of skin (2) Venous insufficiency: CODE(S): I87.2 - Venous insufficiency (chronic) (peripheral) (3) Edema of both lower extremities: CODE(S): R60.0 - Localized edema (4) Lymphedema: CODE(S): I89.0 - Lymphedema, not elsewhere classified (5) Essential hypertension: CODE(S): I10 - Essential (primary) hypertension (6) Morbid obesity with BMI of 45.0-49.9, adult: CODE(S): E66.01 - Morbid (severe) obesity due to excess calories; Z68.42 -Body mass index [BMI] 45.0-49.9, adult (7) Venous stasis 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: CODE(S): I83.023 - Varicose veins of left lower extremity with ulcer of ankle; L97.321 - Non-pressure 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 QUALIFIERS: Varicose vein presence: with varicose veins Qualified Code(s): I83.023 - Varicose veins of left lower extremity with ulcer of ankle; L97.321 - Non- pressure 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 (8) Debility: CODE(S): R53.81 - Other malaise (9) Osteoarthritis: CODE(S): M19.90 - Unspecified osteoarthritis, unspecified site QUALIFIERS: Osteoarthritis location: multiple joints Osteoarthritis type: primary Qualified Code(s): M15.9 - Polyosteoarthritis, unspecified (10) COPD (chronic obstructive pulmonary disease): CODE(S): J44.9 - Chronic obstructive pulmonary disease, unspecified QUALIFIERS: COPD type: unspecified COPD Qualified Code(s): J44.9 - Chronic obstructive pulmonary disease, unspecified (11) Chronic hypoxemic respiratory failure: CODE(S): J96.11 - Chronic respiratory failure with hypoxia (12) Pulmonary hypertension: CODE(S): I27.20 - Pulmonary hypertension, unspecified (13) Hypothyroidism: CODE(S): E03.9 - Hypothyroidism, unspecified QUALIFIERS: Hypothyroidism type: unspecified Qualified Code(s): E03.9 - Hypothyroidism, unspecified (14) Type 2 diabetes mellitus: CODE(S): E11.9 - Type 2 diabetes mellitus without complications QUALIFIERS: Diabetes mellitus oil heaterman insulin use: without oil heaterman use Diabetes mellitus complication status: with other specified complication Qualified Code(s): E11.69 - Type 2 diabetes mellitus with other specified complication (15) DOLORES (obstructive sleep apnea): CODE(S): G47.33 - Obstructive sleep apnea (adult) (pediatric) PLAN: Plan Evaluation and debridement performed today in clinic as annotated above. At home wound-care instructions: Will dress her left lower leg with Aquacel and super absorber and UNNA boot. She was instructed to keep dressings clean and dry. Will have her use lymphedema pumps for 60 minutes 2-3 times daily. Off-loading: The patient was instructed to avoid pressure and friction on the affected areas. Reposition every 2 hours at minimum. Avoid prolonged standing and/or dangling of legs. When seated, feet should be elevated at chest level. Frequent ambulation is encouraged. Diet: Patient encouraged to increase protein intake while taking caution to avoid high carbohydrate and/or sugar intake. Encouraged weight loss. Labs/cultures/imaging: Wound Culture of left allen ulcer showed pseudomonas and MRSA. Ciprofloxacin prescribed. Venous ultrasound showed incompetence of veins of left lower extremity and vascular performed an ablation on 07/27/2024. Culture showed E. faecalis, anaerobic bacteria and Pseudomonas advised to restart Ciprofloxacin and Flagyl was prescribed for Anaerobic bacteria. Wound culture taken today. Encouraged her to get her CPAP mask to improve DOLORES and pulmonary HTN treatment compliance which is adding to her decompensated lymphedema. Follow-up: Will have her follow up in 1 week. Return sooner or report to the emergency room should symptoms worsen, or new symptoms arise. Note: webtide speech recognition train control electronic technician software was used to create portions of this document. Sound-alike and misspelled words, as well as other train control electronic technician errors may be contained in the documentation. 09/01/24 [id number] <Electronically signed by Sneha Rosa DO> Cosigner Signature (if applicable): CC: ~ Signed [facility] Work Phone: [phone] Progress note [facility] [address] [place] [address] Progress Note - Wound Care 09/01/24 1332 MR#: [id number] Acct: [id number] Name: LIZ WADSWORTH Rep #:[id number] : 1950 74 From: Sneha Rosa DO PCP: Dr. Luis Cortés MD Status:R EG RCR Location: History of Present Illness Date of Service: 09/01/24 Chief Complaint: B/L LE ulcers, bilateral lower extremity swelling History of Wound: Liz is a pleasant 74 yo woman that presents to the wound center for bilateral lower extremity edema and blisters and drainage of her bilateral lower extremities. She has had increased edema the last 2 weeks and her legs started seeping a few days ago. She has been wearing her tubigrip compression and had been using the lymphedema pumps until they started seeping fluid. She tries to elevate her legs when she is sitting but is not always consistent with doing this. She has been wrapping her leg with gauze when it is seeping but otherwise has not been doing any regular dressings. Patient has been treated at the wound center in the past for similar wounds, most recently October 2023. She has also been seen in the vascular surgery clinic where she was evaluated her for BLE DVT and venous insufficiency. Patienthas a h/o provoked DVTs and has been off treatment with Eliquis since June 01/2023. GSV ablation has been done to her right lower leg. She has received lymphedema pumps that were ordered during her last treatment course and has beenusing these. Last venous study was 03/2022. Last A1C 01/2023 was 6.4%. Last TSH - 01/2022 Patient's medical history is also significant for CHF, COPD, T2DM, lymphedema. She has a CPAP but has not been using this due to needing a new mask. She statesthat a prescription was to be sent and she never received the mask. Her current mask has a hole in it. Subjective Subjective Liz returns today for treatment of edema to bilateral lower legs. She underwent venous ablation of left lower leg on 07/27/2024. She has been elevating her legs and using lymphedema pumps as directed. She tolerated Aquacel but had increased drainage and edema. She does continue to have drainage from left lateral lower leg and has mild erythema but no obvious ulcer, just skin breakdown. She deniesfever, chills. Objective Data Objective Data Vital Signs: Vital Signs Temp Pulse Resp BP Pulse Ox O2 Del Method 97.0 F L 81 18 170/82 H 94 Room Air 09/01/24 09:54 09/01/24 09:54 09/01/24 09:54 09/01/24 09:54 08/19/24 00:41 09/01/24 09:54 Oxygen Delivery Method Room Air Weight: 140.16 kg Body Mass Index (BMI) 49.8 Physical Exam Const alert, oriented x3, no apparent distress and healthy appearing General Appearance: cooperative; Negative for combative or lethargic Orientation / Consciousness: awake Exam Limitations: no limitations Nutritional Appearance: obese HEENT normocephalic and head/scalp atraumatic Eyes EOMs intact bilaterally General Eye: normal appearance of both eyes Neck full ROM General: trachea midline Lymph Lymphatic: lymphedema severe and pitting Resp normal respiratory effort and no use of accessory muscles Effort and Inspection: Negative for labored, stridor or audible wheezes Cardio regular rate and regular rhythm Back/Spine Cervical Spine: cervical ROM normal Extremity full ROM, normal capillary refill and no clubbing, cyanosis or edema General Extremity: edema bilateral lower extremity Details: severe (with skin changes associated with lymphedema, thickened nodular appearance from mid allen to ankle) Skin no rashes or lesions noted General Skin Exam: erythema, venous stasis and dermatitis Wounds: wounds noted Wound Narrative: as in clinical panel, mildly decreased erythema and light serous drainage from lateral lower leg, nodular appearance of skin associated with lymphedema Neuro oriented x3, CN's II-XII intact bilaterally, no focal motor deficits and no sensory deficits noted Psych thought process normal, cooperative, affect normal, speech normal and activity/motor behavior normal Debridement Note Debridement Note Wound debrided: Left lateral lower leg Laterality: Left Type of Debridement: Excisional debridement Anesthesia Used: 4% Lidocaine Solution Depth: Down to and including healthy tissue and in the subcutaneous layer Percentage of wound debrided: 100 Instrument Used: 3mm curette Tissue Removed: yellow slough and devitalized tissue Severity: Fat Layer Exposed Amount of bleeding with debridement: Mild Bleeding Controlled with: Compression and gauze Patient tolerated procedure: Patient tolerated procedure well Post-Debridement Measurements and Additional Note: Post-Debridement Measurements/Treatment WC - Nurse 1 - General Ulcer Assessment Start: 08/25/24 10:40 Freq: Status: Active Protocol: KELSEY Activity Type Activity Date Activity User E-sign Co-sign Detail Recorded Client Recorded Date Recorded By Document 08/25/24 10:40 ROBERT [id number] 08/25/24 11:11 RB Document 09/01/24 09:54 KW [id number] 09/01/24 10:01 KW 08/25/24 09/01/24 10:40 09:54 WC - Today's Visit Information Type of service Follow-up Visit Follow-up Visit (Physician/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 (Physician/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 ) ) Arrival Mode Ambulatory, Ambulatory, Walker Walker Transfer Assistance None Patient Identification Verified (Name & Yes Yes ) Patient Requires Transmission-Based No Precautions Height and Weight Body Mass Index (BMI) 49.8 49.8 BMI Classification Obese Obese Vital Signs Temperature (97.8 F-99.1 F) 97.6 F L 97.0 F L Temperature Source Temporal Temporal Pulse Rate (60-100) 81 81 Pulse Location Monitor Monitor Respiratory Rate (12-18) 18 18 Respiratory rate source Observation Observation Oxygen Delivery Method Room Air Blood Pressure (90/60-120/80) 148/68 H 170/82 H Blood Pressure Mean (mm Hg) 94 111 Source Monitor Monitor Position Semi-Fowlers Semi-Fowlers Blood Pressure Location Left Arm Left Arm History Since Last Visit- (Skip if this is Patient's initial visit) Have you changed medications since your No No last visit? Any new allergies or adverse reactions No No Had a fall/change in ADL's that may No No increase risk of falls Signs or symptoms of abuse and/or No No neglect since last visit Have you been in the hospital since your No No last visit? Has dressing in place as prescribed Yes Yes Has compression in place as prescribed Yes Yes Has offloadiing in place as prescribed N/A N/A Experienced any changes in pain level or No No management Left Footwear Regular Shoe Regular Shoe Right Footwear Regular Shoe Regular Shoe Pain Scale: 0-10 Numeric Is Patient Pain Free? Yes Yes - Nurse 1 - General Ulcer Measurement Start: 08/25/24 10:40 Freq: Status: Active Protocol: Activity Type Activity Date Activity User E-sign Co-sign Detail Recorded Client Recorded Date Recorded By Document 08/25/24 10:40 RB [id number] 08/25/24 11:11 RB Edit Result 08/25/24 10:40 RB (1) [id number] 08/25/24 11:49 RB Document 09/01/24 09:54 KW [id number] 09/01/24 10:01 KW (1) Left Ankle (cm) => 28.5 08/25/24 09/01/24 10:40 09:54 Wound Center Nurse 1 #9 Left Lateral Allen -Combined with other wound No -Current Size (cm) - Length 0.1 0.1 -Current Size (cm) - Width 0.1 0.1 -Current Size (cm) - Depth 0.1 0 -Total Square Cm 0.01 0.01 -Date of Last Picture (Recall this 09/01/24 field) -Photo Taken Yes -Tunneling No -Undermining/Tunneling No -Circular Undermining No -Exudate Amt Medium Large -Exudate Type Serosanguineous Serosanguineous -Wound Margin Distinct, Indistinct, Non Outline -Visible Attached -Granulation Amt Large (67-100%) Large (67-100%) -Granulation Quality [place] Red -Slough/Fibrin Yes -Necrosis Amt Small (1-33%) -Necrotic Tissue Type Adherent Slough -Structure Exposed N/A -Texture (Adrianna-wound Skin Appearance) Assessed, Assessed Excoriation -Moisture (Adrianna-wound Skin Appearance) Weeping Assessed -Color (Adrianna-wound Skin Appearance) Assessed Assessed, Erythema -Temperature (Adrianna-wound Skin No Abnormality No Abnormality Appearance) (Pt Warm) (Pt Warm) -Tenderness on Palpation (Adrianna-wound No No Skin Appearance) -Ulcer Cleansing Wound Cleanser Rinsed/ Irrigated with Saline -Foul Odor after Cleansing No No -Anesthetic Used 5% Lidocaine 4% Lidocaine Gel Solution,5% Lidocaine Gel Lower Limb Edema Present Yes Right Calf (cm) 55 57.7 Right Ankle (cm) 32.2 31 Left Calf (cm) 48 58.3 Left Ankle (cm) 28.5 31 WC - Nurse 2 - General Ulcer CM Notes Start: 08/25/24 10:40 Freq: Status: Active Protocol: Activity Type Activity Date Activity User E-sign Co-sign Detail Recorded Client Recorded Date Recorded By Document 08/25/24 11:15 GM [id number] 08/25/24 11:20 GM Document 09/01/24 10:24 [id number] 09/01/24 10:29 08/25/24 09/01/24 11:15 10:24 Wound Center Nurse 2 #9 Left Lateral Allen -Time 11:15 10:24 -Correct Patient Yes Yes -Correct Side, Site, Position Yes Yes -Correct Procedure Yes No -Procedure Performed Yes No -Type of Procedure Debridement -Clinical Debridement Subcutaneous -Tissue Removed Subcutaneous -Post Debridement (cm) - Length 1.0 0.5 -Post Debridement (cm) - Width 2.0 0.5 -Post Debridement (cm) - Depth 0.1 0.1 -Total Square (Post) (cm) 2.00 0.25 -Area of Debridement (cm) - Length 1.0 -Area of Debridement (cm) - Width 2.0 -Total Square (Area) (cm) 2.00 -Tunneling No No -Undermining/Tunneling No No -Circular Undermining No No -Wound/Ulcer Outcome Not Healed Not Healed -Ulcer Cleansing Rinsed/ Rinsed/ Irrigated with Irrigated with Saline Saline -Foul Odor after Cleansing No No -Bioengineered Tissue No No -Bleeding Controlled with Pressure NA -Treatment Response Procedure Tolerated Well -Offloading No -Debridement - Subq, 1st 20sq cm Yes Pain Scale: 0-10 Numeric Is Patient Pain Free? Yes Yes - Nurse 3 - General Ulcer D/C NN Start: 08/25/24 10:40 Freq: Status: Active Protocol: Activity Type Activity Date Activity User E-sign Co-sign Detail Recorded Client Recorded Date Recorded By Document 08/25/24 11:49 RB [id number] 08/25/24 11:51 RB Document 08/25/24 11:58 RB [id number] 08/25/24 11:59 RB Document 09/01/24 10:34 KW [id number] 09/01/24 10:35 KW 08/25/24 08/25/24 09/01/24 11:49 11:58 10:34 Wound Care Center Nurse 3 #9 Left Lateral Allen -Ulcer Cleansing Wound Cleanser -Primary Dressing Applied Promogran, Aquacel Extra, Silicone Border Optilok 6.5x10 Foam 6x6 -Aquacel Extra 1 -Optilok 6.5x10 1 -Promogran 1 -Silicone Border Foam 6x6 1 BLE -Lotion applied to leg before Yes compression wrap -Multi-Layered Wrap Application Unna Boot - Bilateral -Unna- Bilat (Qty applied) 1 RLE -Lotion applied to leg before Yes compression wrap -Tubular Bandage Double Layer -Size of Tubigrip Used Size F -Size F ($) 2 left -Lotion applied to leg before Yes compression wrap -Tubular Bandage Double Layer -Size of Tubigrip Used Size F -Size F ($) 2 Treatment Response Procedure Tolerated Well Pain Scale: 0-10 Numeric Is Patient Pain Free? Yes Yes Yes WC - Visit Discharge Discharge Condition Stable Stable Ambulatory Status Ambulatory, Ambulatory, Walker Walker Transportation Private Auto Private Auto Medication Reconcilliation completed & No No provided to patient/care provider Clinical Summary of Care Provided Yes Yes 08/25/24 11:58 Wound Center by Zahira Nolasco pt instructed on dressing change with promogran and bordered foam then tubigrip Initialized on 08/25/24 11:58 - END OF NOTE Assessment/Plan Assessment/Plan (1) Non-pressure chronic ulcer left lower leg, limited to breakdown skin: CODE(S): L97.921 - Non-pressure chronic ulcer of unspecified part of left lower leg limited to breakdown of skin (2) Venous insufficiency: CODE(S): I87.2 - Venous insufficiency (chronic) (peripheral) (3) Edema of both lower extremities: CODE(S): R60.0 - Localized edema (4) Lymphedema: CODE(S): I89.0 - Lymphedema, not elsewhere classified (5) Essential hypertension: CODE(S): I10 - Essential (primary) hypertension (6) Morbid obesity with BMI of 45.0-49.9, adult: CODE(S): E66.01 - Morbid (severe) obesity due to excess calories; Z68.42 -Body mass index [BMI] 45.0-49.9, adult (7) Venous stasis 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: CODE(S): I83.023 - Varicose veins of left lower extremity with ulcer of ankle; L97.321 - Non-pressure 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 QUALIFIERS: Varicose vein presence: with varicose veins Qualified Code(s): I83.023 - Varicose veinsof left lower extremity with ulcer of ankle; L97.321 - Non-pressure 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 (8) Debility: CODE(S): R53.81 - Other malaise (9) Osteoarthritis: CODE(S): M19.90 - Unspecified osteoarthritis, unspecified site QUALIFIERS: Osteoarthritis location: multiple joints Osteoarthritis type: primary Qualified Code(s): M15.9 - Polyosteoarthritis, unspecified (10) COPD (chronic obstructive pulmonary disease): CODE(S): J44.9 - Chronic obstructive pulmonary disease, unspecified QUALIFIERS: COPD type: unspecified COPD Qualified Code(s): J44.9 - Chronic obstructive pulmonary disease, unspecified (11) Chronic hypoxemic respiratory failure: CODE(S): J96.11 - Chronic respiratory failure with hypoxia (12) Pulmonary hypertension: CODE(S): I27.20 - Pulmonary hypertension, unspecified (13) Hypothyroidism: CODE(S): E03.9 - Hypothyroidism, unspecified QUALIFIERS: Hypothyroidism type: unspecified Qualified Code(s): E03.9 - Hypothyroidism, unspecified (14) Type 2 diabetes mellitus: CODE(S): E11.9 - Type 2 diabetes mellitus without complications QUALIFIERS: Diabetes mellitus residential insulin use: without oil heaterman use Diabetes mellitus complication status: with other specified complication Qualified Code(s): E11.69 - Type 2 diabetes mellitus with other specified complication (15) DOLORES (obstructive sleep apnea): CODE(S): G47.33 - Obstructive sleep apnea (adult) (pediatric) PLAN: Plan Evaluation and debridement performed today in clinic as annotated above. At home wound-care instructions: Will dress her left lower leg with Aquacel and super absorber and UNNA boot. She was instructed to keep dressings clean and dry. Will have her use lymphedema pumps for 60 minutes 2-3 times daily. Off-loading: The patient was instructed to avoid pressure and friction on the affected areas. Reposition every 2 hours at minimum. Avoid prolonged standing and/or dangling of legs. When seated, feet should be elevated at chest level. Frequent ambulation is encouraged. Diet: Patient encouraged to increase protein intake while taking caution to avoid high carbohydrateand/or sugar intake. Encouraged weight loss. Labs/cultures/imaging: Wound Culture of left allen ulcer showed pseudomonas and MRSA. Ciprofloxacin prescribed. Venous ultrasound showed incompetence of veins of left lower extremity and vascular performed an ablation on 07/27/2024. Culture showed E. faecalis, anaerobic bacteria and Pseudomonas advised to restart Ciprofloxacin and Flagyl was prescribed for Anaerobic bacteria. Wound culture taken today. Encouraged her to get her CPAP mask to improve DOLORES and pulmonary HTN treatment compliance which is adding to her decompensated lymphedema. Follow-up: Will have her follow up in 1 week. Return sooner or report to the emergency room should symptoms worsen, or new symptoms arise. Note: webtide speech recognition train control electronic technician software was used to create portions of this document. Sound-alike and misspelled words, as well as other train control electronic technician errors may be contained in the documentation. 09/01/24 8490 Cosigner Signature (if applicable): CC: ~ Signed [facility]03-10-2025 Evaluation note* Diagnosis Onset Date Resolution Status Admit Date ATKINS (dyspnea on exertion) chronic August 28, 2024 11:41am Essential hypertension [facility] 2024 11:41am Hyperlipidemia chronic August 11:41am Palpitations chronic August 28, 2024 11:41am 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, limited to breakdown skin acute September 15, 2024 9:30am Venous stasis 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 acute September 15, 2024 9:30am Chronic hypoxemic respirator y failure chronic September 15, 2024 9:30am COPD (chronic obstructive pulmonary disease) chronic September 15, 025 9:30am Debility chronic September 15 9:30am Edema of both lower extremities 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 September 15, 2024 9:30am Essential hypertension chronic [facility] 2024 9:30am Hypothyroidism chronic August 9:30am Lymphedema chronic September 15 9:30am Morbid obesity with BMI of 45.0-49.9, adult chronic September 15 9:30am DOLORES (obstructive sleep apnea) chroni c September 15, 2024 9:30am Osteoarthritis chronic August 9:30am Pulmonary hypertension chronic [facility] 2024 9:30am Type 2 diabetes mellitus chronic September 15, 2024 9:30am Venous insufficiency chronic [facility] 2024 9:30am Dizziness acute October 03 10:44am Essential hypertension chronic Ap ril 2024 10:44am Hyperlipidemia chronic September 10:44am Palpitations chronic October 03, 2024 10:44am 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, limited to breakdown skin acute October 13, 2024 10:00am Venous stasis 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 acute October 13, 2024 10:00am Chronic hypoxemic respirator y failure chronic October 13, 2024 10:00am COPD (chronic obstructive pulmonary disease) chronic October 13, 025 10:00am Debility chronic October 13 10:00am Edema of both lower extremities 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 October 13, 2024 10:00am Essential hypertension chronic Ap ril 2024 10:00am Hypothyroidism chronic September 10:00am Lymphedema chronic October 13 10:00am Morbid obesity with BMI of 45.0-49.9, adult chronic October 13 10:00am DOLORES (obstructive sleep apnea) chroni c October 13, 2024 10:00am Osteoarthritis chronic September 10:00am Pulmonary hypertension chronic Ap ril 2024 10:00am Type 2 diabetes mellitus chronic October 13, 2024 10:00am Venous insufficiency chronic Apri l 2024 10:00am 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 A pril 2024 1:26pm Morbid obesity with BMI of 45.0-49.9, adult chronic October 18 1:26pm DOLORES (obstructive sleep apnea) chroni c October 18, 2024 1:26pm Pulmonary hypertension chronic Ap ril 2024 1:26pm Essential hypertension chronic Ma y 2024 10:35am Hypothyroidism chronic November 06, 2024 10:35am Insomnia chronic November 06, 2024 10:35am Cellulitis of left lower extremity acute November 17, 2024 1 0:15am 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, limited to breakdown skin acute November 17, 2024 1 0:15am Venous stasis 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 acute November 17, 2024 1 0:15am Venous stasis ulcer of left calf with fat layer exposed acute November 17, 2024 10:15am Venous stasis ulcer of right calf with fat layer exposed acute November 17, 2024 10:15am Venous ulcer with fat layer exposed acute November 17, 2024 1 0:15am Chronic hypoxemic respirator y failure chronic November 17, 2024 1 0:15am COPD (chronic obstructive pulmonary disease) chronic November 17 10:15am Debility chronic November 17, 2024 10:15am Edema of both lower extremities 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 November 17, 2024 10:15am Essential hypertension chronic Ma y 2024 10:15am Hypothyroidism chronic November 17, 2024 10:15am Lymphedema chronic November 17, 2024 10:15am Morbid obesity with BMI of 45.0-49.9, adult chronic November 17, 2024 10:15am DOLORES (obstructive sleep apnea) chroni c November 17, 2024 10:15am Osteoarthritis chronic November 17, 2024 10:15am Pulmonary hypertension chronic 2024 10:15am Type 2 diabetes mellitus chronic November 17, 2024 10:15am Venous insufficiency chronic November 17, 2024 10:15am Rhinosinusitis acute December 07, 2024 12:32pm Vertigo acute December 07 12:32pm Cellulitis of left lower extremity acute December 15, 2024 10:15am 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, limited to breakdown skin acute December 15, 2024 10:15am Venous stasis ulcer of left calf with fat layer exposed acute November 10:15am Venous stasis ulcer of right calf with fat layer exposed acute December 15, 2024 10:15am Venous ulcer with fat layer exposed acute December 15, 2024 10:15am Chronic hypoxemic respirator y failure chronic December 15, 2024 10:15am COPD (chronic obstructive pulmonary disease) chronic December 15 10:15am Debility chronic December 15 10:15am Edema of both lower extremities 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 December 15, 2024 10:15am Essential hypertension chronic Ju ne 2024 10:15am Hypothyroidism chronic December 15, 2024 10:15am Lymphedema chronic December 15 10:15am Morbid obesity with BMI of 45.0-49.9, adult chronic December 15, 2024 10:15am DOLORES (obstructive sleep apnea) chroni c December 15, 2024 10:15am Osteoarthritis chronic December 15, 2024 10:15am Pulmonary hypertension chronic Ju 2024 10:15am Type 2 diabetes mellitus chronic December 15, 2024 10:15am Venous insufficiency chronic December 15, 2024 10:15am [facility] Work Phone: 1(326) 200-254303-07-2025 Progress note Author Sneha Rosa [facility] Note Date/Time August 25, 2024 2:05 pm [facility] [address] [place] [address] Progress Note - Wound Care 08/25/24 1459 MR#: [id number] Acct: [id number] Name: LIZ WADSWORTH Rep #:[id number] : 1950 74 From: Sneha Rosa DO PCP: Dr. Luis Cortés MD Status:R EG RCR Location: History of Present Illness Date of Service: 08/25/24 Chief Complaint: B/L LE ulcers, bilateral lower extremity swelling History of Wound: Liz is a pleasant 74 yo woman that presents to the wound center for bilateral lower extremity edema and blisters and drainage of her bilateral lower extremities. She has had increased edema the last 2 weeks and her legs started seeping a few days ago. She has been wearing her tubigrip compression and had been using the lymphedema pumps until they started seeping fluid. She tries to elevate her legs when she is sitting but is not always consistent with doing this. She has been wrapping her leg with gauze when it is seeping but otherwise has not been doing any regular dressings. Patient has been treated at the wound center in the past for similar wounds, most recently October 2023. She has also been seen in the vascular surgery clinic where she was evaluated her for BLE DVT and venous insufficiency. Patienthas a h/o provoked DVTs and has been off treatment with Eliquis since June 01/2023. GSV ablation has been done to her right lower leg. She has received lymphedema pumps that were ordered during her last treatment course and has beenusing these. Last venous study was 03/2022. Last A1C 01/2023 was 6.4%. Last TSH - 01/2022 Patient's medical history is also significant for CHF, COPD, T2DM, lymphedema. She has a CPAP but has not been using this due to needing a new mask. She statesthat a prescription was to be sent and she never received the mask. Her current mask has a hole in it. Subjective Subjective Liz returns today for treatment of edema to bilateral lower legs. She underwent venous ablation of left lower leg on 07/27/2024. She has been elevating her legs and using lymphedema pumps as directed. She tolerated UNNA boot compression. She does continue to have drainage from left lateral lower leg and has mild erythema but no obvious ulcer, just skin breakdown. She denies fever, chills. Objective Data Objective Data Vital Signs: Vital Signs Temp Pulse Resp BP Pulse Ox 97.6 F L 81 18 148/68 H 94 08/25/24 10:40 08/25/24 10:40 08/25/24 10:40 08/25/24 10:40 08/19/24 00:41 Weight: 140.16 kg Body Mass Index (BMI) 49.8 Physical Exam Const alert, oriented x3, no apparent distress and healthy appearing General Appearance: cooperative; Negative for combative or lethargic Orientation / Consciousness: awake Exam Limitations: no limitations Nutritional Appearance: obese HEENT normocephalic and head/scalp atraumatic Eyes EOMs intact bilaterally General Eye: normal appearance of both eyes Neck full ROM General: trachea midline Lymph Lymphatic: lymphedema severe and pitting Resp normal respiratory effort and no use of accessory muscles Effort and Inspection: Negative for labored, stridor or audible wheezes Cardio regular rate and regular rhythm Back/Spine Cervical Spine: cervical ROM normal Extremity full ROM, normal capillary refill and no clubbing, cyanosis or edema General Extremity: edema bilateral lower extremity Details: severe (with skin changes associated with lymphedema, thickened nodular appearance from mid allen to ankle) Skin no rashes or lesions noted General Skin Exam: erythema, venous stasis and dermatitis Wounds: wounds noted Wound Narrative: as in clinical panel, mildly decreased erythema and light serous drainage from lateral lower leg, nodular appearance of skin associated with lymphedema Neuro oriented x3, CN's II-XII intact bilaterally, no focal motor deficits and no sensory deficits noted Psych thought process normal, cooperative, affect normal, speech normal and activity/motor behavior normal Debridement Note Debridement Note Wound debrided: Left lateral lower leg Laterality: Left Type of Debridement: Excisional debridement Anesthesia Used: 4% Lidocaine Solution Depth: Down to and including healthy tissue and in the subcutaneous layer Percentage of wound debrided: 100 Instrument Used: 3mm curette Tissue Removed: yellow slough and devitalized tissue Severity: Fat Layer Exposed Amount of bleeding with debridement: Mild Bleeding Controlled with: Compression and gauze Patient tolerated procedure: Patient tolerated procedure well Post-Debridement Measurements and Additional Note: Post-Debridement Measurements/Treatment - Nurse 1 - General Ulcer Assessment Start: 08/25/24 10:40 Freq: Status: Active Protocol: KELSEY Activity Type Activity Date Activity User E-sign Co-sign Detail Recorded Client Recorded Date Recorded By Document 08/25/24 10:40 ROBERT [id number] 08/25/24 11:11 ROBERT 08/25/24 10:40 WC - Today's Visit Information Type of service Follow-up Visit (Physician/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 ) Arrival Mode Ambulatory, Walker Transfer Assistance None Patient Identification Verified (Name & Yes ) Patient Requires Transmission-Based No Precautions Height and Weight Body Mass Index (BMI) 49.8 BMI Classification Obese Vital Signs Temperature (97.8 F-99.1 F) 97.6 F L Temperature Source Temporal Pulse Rate (60-100) 81 Pulse Location Monitor Respiratory Rate (12-18) 18 Respiratory rate source Observation Blood Pressure (90/60-120/80) 148/68 H Blood Pressure Mean (mm Hg) 94 Source Monitor Position Semi-Fowlers Blood Pressure Location Left Arm History Since Last Visit- (Skip if this is Patient's initial visit) Have you changed medications since your No last visit? Any new allergies or adverse reactions No Had a fall/change in ADL's that may No increase risk of falls Signs or symptoms of abuse and/or No neglect since last visit Have you been in the hospital since your No last visit? Has dressing in place as prescribed Yes Has compression in place as prescribed Yes Has offloadiing in place as prescribed N/A Experienced any changes in pain level or No management Left Footwear Regular Shoe Right Footwear Regular Shoe Pain Scale: 0-10 Numeric Is Patient Pain Free? Yes - Nurse 1 - General Ulcer Measurement Start: 08/25/24 10:40 Freq: Status: Active Protocol: Activity Type Activity Date Activity User E-sign Co-sign Detail Recorded Client Recorded Date Recorded By Document 08/25/24 10:40 RB [id number] 08/25/24 11:11 RB Edit Result 08/25/24 10:40 RB (1) [id number] 08/25/24 11:49 RB (1) Left Ankle (cm) => 28.5 08/25/24 10:40 Wound Center Nurse 1 #9 Left Lateral Aleln -Combined with other wound No -Current Size (cm) - Length 0.1 -Current Size (cm) - Width 0.1 -Current Size (cm) - Depth 0.1 -Total Square Cm 0.01 -Photo Taken Yes -Tunneling No -Undermining/Tunneling No -Circular Undermining No -Exudate Amt Medium -Exudate Type Serosanguineous -Wound Margin Distinct, Outline Attached -Granulation Amt Large (67-100%) -Granulation Quality [place] -Slough/Fibrin Yes -Necrosis Amt Small (1-33%) -Necrotic Tissue Type Adherent Slough -Structure Exposed N/A -Texture (Adrianna-wound Skin Appearance) Assessed, Excoriation -Moisture (Adrianna-wound Skin Appearance) Weeping -Color (Adrianna-wound Skin Appearance) Assessed -Temperature (Adrianna-wound Skin No Abnormality Appearance) (Pt Warm) -Tenderness on Palpation (Adrianna-wound No Skin Appearance) -Ulcer Cleansing Wound Cleanser -Foul Odor after Cleansing No -Anesthetic Used 5% Lidocaine Gel Lower Limb Edema Present Yes Right Calf (cm) 55 Right Ankle (cm) 32.2 Left Calf (cm) 48 Left Ankle (cm) 28.5 WC - Nurse 2 - General Ulcer CM Notes Start: 08/25/24 10:40 Freq: Status: Active Protocol: Activity Type Activity Date Activity User E-sign Co-sign Detail Recorded Client Recorded Date Recorded By Document 08/25/24 11:15 GM [id number] 08/25/24 11:20 08/25/24 11:15 Wound Center Nurse 2 #9 Left Lateral Allen -Time 11:15 -Correct Patient Yes -Correct Side, Site, Position Yes -Correct Procedure Yes -Procedure Performed Yes -Type of Procedure Debridement -Clinical Debridement Subcutaneous -Tissue Removed Subcutaneous -Post Debridement (cm) - Length 1.0 -Post Debridement (cm) - Width 2.0 -Post Debridement (cm) - Depth 0.1 -Total Square (Post) (cm) 2.00 -Area of Debridement (cm) - Length 1.0 -Area of Debridement (cm) - Width 2.0 -Total Square (Area) (cm) 2.00 -Tunneling No -Undermining/Tunneling No -Circular Undermining No -Wound/Ulcer Outcome Not Healed -Ulcer Cleansing Rinsed/ Irrigated with Saline -Foul Odor after Cleansing No -Bioengineered Tissue No -Bleeding Controlled with Pressure -Treatment Response Procedure Tolerated Well -Debridement - Subq, 1st 20sq cm Yes Pain Scale: 0-10 Numeric Is Patient Pain Free? Yes - Nurse 3 - General Ulcer D/C NN Start: 08/25/24 10:40 Freq: Status: Active Protocol: Activity Type Activity Date Activity User E-sign Co-sign Detail Recorded Client Recorded Date Recorded By Document 08/25/24 11:49 RB [id number] 08/25/24 11:51 RB Document 08/25/24 11:58 RB [id number] 08/25/24 11:59 RB 08/25/24 08/25/24 11:49 11:58 Wound Care Center Nurse 3 #9 Left Lateral Allen -Ulcer Cleansing Wound Cleanser -Primary Dressing Applied Promogran, Silicone Border Foam 6x6 -Promogran 1 -Silicone Border Foam 6x6 1 RLE -Lotion applied to leg before Yes compression wrap -Tubular Bandage Double Layer -Size of Tubigrip Used Size F -Size F ($) 2 left -Lotion applied to leg before Yes compression wrap -Tubular Bandage Double Layer -Size of Tubigrip Used Size F -Size F ($) 2 Treatment Response Procedure Tolerated Well Pain Scale: 0-10 Numeric Is Patient Pain Free? Yes Yes - Visit Discharge Discharge Condition Stable Ambulatory Status Ambulatory, Walker Transportation Private Auto Medication Reconcilliation completed & No provided to patient/care provider Clinical Summary of Care Provided Yes 08/25/24 11:58 Wound Center by Zahira Nolasco pt instructed on dressing change with promogran and bordered foam then tubigrip Initialized on 08/25/24 11:58 - END OF NOTE Assessment/Plan Assessment/Plan (1) Non-pressure chronic ulcer left lower leg, limited to breakdown skin: CODE(S): L97.921 - Non-pressure chronic ulcer of unspecified part of left lower leg limited to breakdown of skin (2) Venous insufficiency: CODE(S): I87.2 - Venous insufficiency (chronic) (peripheral) (3) Edema of both lower extremities: CODE(S): R60.0 - Localized edema (4) Lymphedema: CODE(S): I89.0 - Lymphedema, not elsewhere classified (5) Essential hypertension: CODE(S): I10 - Essential (primary) hypertension (6) Morbid obesity with BMI of 45.0-49.9, adult: CODE(S): E66.01 - Morbid (severe) obesity due to excess calories; Z68.42 -Body mass index [BMI] 45.0-49.9, adult (7) Venous stasis 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: CODE(S): I83.023 - Varicose veins of left lower extremity with ulcer of ankle; L97.321 - Non-pressure 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 QUALIFIERS: Varicose vein presence: with varicose veins Qualified Code(s): I83.023 - Varicose veins of left lower extremity with ulcer of ankle; L97.321 - Non- pressure 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 (8) Debility: CODE(S): R53.81 - Other malaise (9) Osteoarthritis: CODE(S): M19.90 - Unspecified osteoarthritis, unspecified site QUALIFIERS: Osteoarthritis location: multiple joints Osteoarthritis type: primary Qualified Code(s): M15.9 - Polyosteoarthritis, unspecified (10) COPD (chronic obstructive pulmonary disease): CODE(S): J44.9 - Chronic obstructive pulmonary disease, unspecified QUALIFIERS: COPD type: unspecified COPD Qualified Code(s): J44.9 - Chronic obstructive pulmonary disease, unspecified (11) Chronic hypoxemic respiratory failure: CODE(S): J96.11 - Chronic respiratory failure with hypoxia (12) Pulmonary hypertension: CODE(S): I27.20 - Pulmonary hypertension, unspecified (13) Hypothyroidism: CODE(S): E03.9 - Hypothyroidism, unspecified QUALIFIERS: Hypothyroidism type: unspecified Qualified Code(s): E03.9 - Hypothyroidism, unspecified (14) Type 2 diabetes mellitus: CODE(S): E11.9 - Type 2 diabetes mellitus without complications QUALIFIERS: Diabetes mellitus oil heaterman insulin use: without oil heaterman use Diabetes mellitus complication status: with other specified complication Qualified Code(s): E11.69 - Type 2 diabetes mellitus with other specified complication (15) DOLORES (obstructive sleep apnea): CODE(S): G47.33 - Obstructive sleep apnea (adult) (pediatric) PLAN: Plan Evaluation and debridement performed today in clinic as annotated above. At home wound-care instructions: Will dress her left lower leg with Promogran and Silicone bordered dressing. She was instructed to keep dressings clean and dry. Will have her use lymphedema pumps for 60 minutes 2-3 times daily. Off-loading: The patient was instructed to avoid pressure and friction on the affected areas. Reposition every 2 hours at minimum. Avoid prolonged standing and/or dangling of legs. When seated, feet should be elevated at chest level. Frequent ambulation is encouraged. Diet: Patient encouraged to increase protein intake while taking caution to avoid high carbohydrate and/or sugar intake. Encouraged weight loss. Labs/cultures/imaging: Wound Culture of left allen ulcer showed pseudomonas and MRSA. Ciprofloxacin prescribed. Venous ultrasound showed incompetence of veins of left lower extremity and vascular performed an ablation on 07/27/2024. Culture showed E. faecalis, anaerobic bacteria and Pseudomonas advised to restart Ciprofloxacin and Flagyl was prescribed for Anaerobic bacteria. If no improvement, will prescribe Linezolid. Encouraged her to get her CPAP mask to improve DOLORES and pulmonary HTN treatment compliance which is adding to her decompensated lymphedema. Follow-up: Will have her follow up in 1 week. Return sooner or report to the emergency room should symptoms worsen, or new symptoms arise. Note: webtide speech recognition train control electronic technician software was used to create portions of this document. Sound-alike and misspelled words, as well as other train control electronic technician errors may be contained in the documentation. 08/25/24 1501 <Electronically signed by Sneha Rosa DO> Cosigner Signature (if applicable): CC: ~ Signed [facility] Work Phone: 1(389) 172-696103-07-2025 Progress note [facility] [address] [place] [address] Progress Note - Wound Care 08/25/24 8865 MR#: [id number] Acct: [id number] Name: LIZ WADSWORTH Rep #:[id number] : 1950 74 From: Sneha Rosa DO PCP: Dr. Luis Coréts MD Status:R EG RCR Location: History of Present Illness Date of Service: 08/25/24 Chief Complaint: B/L LE ulcers, bilateral lower extremity swelling History of Wound: Liz is a pleasant 74 yo woman that presents to the wound center for bilateral lower extremity edema and blisters and drainage of her bilateral lower extremities. She has had increased edema the last 2 weeks and her legs started seeping a few days ago. She has been wearing her tubigrip compression and had been using the lymphedema pumps until they started seeping fluid. She tries to elevate her legs when she is sitting but is not always consistent with doing this. She has been wrapping her leg with gauze when it is seeping but otherwise has not been doing any regular dressings. Patient has been treated at the wound center in the past for similar wounds, most recently October 2023. She has also been seen in the vascular surgery clinic where she was evaluated her for BLE DVT and venous insufficiency. Patienthas a h/o provoked DVTs and has been off treatment with Eliquis since June 01/2023. GSV ablation has been done to her right lower leg. She has received lymphedema pumps that were ordered during her last treatment course and has beenusing these. Last venous study was 03/2022. Last A1C 01/2023 was 6.4%. Last TSH - 01/2022 Patient's medical history is also significant for CHF, COPD, T2DM, lymphedema. She has a CPAP but has not been using this due to needing a new mask. She statesthat a prescription was to be sent and she never received the mask. Her current mask has a hole in it. Subjective Subjective Liz returns today for treatment of edema to bilateral lower legs. She underwent venous ablation of left lower leg on 07/27/2024. She has been elevating her legs and using lymphedema pumps as directed. She tolerated UNNA boot compression. She does continue to have drainage from left lateral lower leg and has mild erythema but no obvious ulcer, just skin breakdown. She denies fever, chills. Objective Data Objective Data Vital Signs: Vital Signs Temp Pulse Resp BP Pulse Ox 97.6 F L 81 18 148/68 H 94 08/25/24 10:40 08/25/24 10:40 08/25/24 10:40 08/25/24 10:40 08/19/24 00:41 Weight: 140.16 kg Body Mass Index (BMI) 49.8 Physical Exam Const alert, oriented x3, no apparent distress and healthy appearing General Appearance: cooperative; Negative for combative or lethargic Orientation / Consciousness: awake Exam Limitations: no limitations Nutritional Appearance: obese HEENT normocephalic and head/scalp atraumatic Eyes EOMs intact bilaterally General Eye: normal appearance of both eyes Neck full ROM General: trachea midline Lymph Lymphatic: lymphedema severe and pitting Resp normal respiratory effort and no use of accessory muscles Effort and Inspection: Negative for labored, stridor or audible wheezes Cardio regular rate and regular rhythm Back/Spine Cervical Spine: cervical ROM normal Extremity full ROM, normal capillary refill and no clubbing, cyanosis or edema General Extremity: edema bilateral lower extremity Details: severe (with skin changes associated with lymphedema, thickened nodular appearance from mid allen to ankle) Skin no rashes or lesions noted General Skin Exam: erythema, venous stasis and dermatitis Wounds: wounds noted Wound Narrative: as in clinical panel, mildly decreased erythema and light serous drainage from lateral lower leg, nodular appearance of skin associated with lymphedema Neuro oriented x3, CN's II-XII intact bilaterally, no focal motor deficits and no sensory deficits noted Psych thought process normal, cooperative, affect normal, speech normal and activity/motor behavior normal Debridement Note Debridement Note Wound debrided: Left lateral lower leg Laterality: Left Type of Debridement: Excisional debridement Anesthesia Used: 4% Lidocaine Solution Depth: Down to and including healthy tissue and in the subcutaneous layer Percentage of wound debrided: 100 Instrument Used: 3mm curette Tissue Removed: yellow slough and devitalized tissue Severity: Fat Layer Exposed Amount of bleeding with debridement: Mild Bleeding Controlled with: Compression and gauze Patient tolerated procedure: Patient tolerated procedure well Post-Debridement Measurements and Additional Note: Post-Debridement Measurements/Treatment WC - Nurse 1 - General Ulcer Assessment Start: 08/25/24 10:40 Freq: Status: Active Protocol: [email or web address] Activity Type Activity Date Activity User E-sign Co-sign Detail Recorded Client Recorded Date Recorded By Document 08/25/24 10:40 ROBERT [id number] 08/25/24 11:11 RB 08/25/24 10:40 WC - Today's Visit Information Type of service Follow-up Visit (Physician/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 ) Arrival Mode Ambulatory, Walker Transfer Assistance None Patient Identification Verified (Name & Yes ) Patient Requires Transmission-Based No Precautions Height and Weight Body Mass Index (BMI) 49.8 BMI Classification Obese Vital Signs Temperature (97.8 F-99.1 F) 97.6 F L Temperature Source Temporal Pulse Rate (60-100) 81 Pulse Location Monitor Respiratory Rate (12-18) 18 Respiratory rate source Observation Blood Pressure (90/60-120/80) 148/68 H Blood Pressure Mean (mm Hg) 94 Source Monitor Position Semi-Fowlers Blood Pressure Location Left Arm History Since Last Visit- (Skip if this is Patient's initial visit) Have you changed medications since your No last visit? Any new allergies or adverse reactions No Had a fall/change in ADL's that may No increase risk of falls Signs or symptoms of abuse and/or No neglect since last visit Have you been in the hospital since your No last visit? Has dressing in place as prescribed Yes Has compression in place as prescribed Yes Has offloadiing in place as prescribed N/A Experienced any changes in pain level or No management Left Footwear Regular Shoe Right Footwear Regular Shoe Pain Scale: 0-10 Numeric Is Patient Pain Free? Yes - Nurse 1 - General Ulcer Measurement Start: 08/25/24 10:40 Freq: Status: Active Protocol: Activity Type Activity Date Activity User E-sign Co-sign Detail Recorded Client Recorded Date Recorded By Document 08/25/24 10:40 RB [id number] 08/25/24 11:11 RB Edit Result 08/25/24 10:40 RB (1) [id number] 08/25/24 11:49 RB (1) Left Ankle (cm) => 28.5 08/25/24 10:40 Wound Center Nurse 1 #9 Left Lateral Allen -Combined with other wound No -Current Size (cm) - Length 0.1 -Current Size (cm) - Width 0.1 -Current Size (cm) - Depth 0.1 -Total Square Cm 0.01 -Photo Taken Yes -Tunneling No -Undermining/Tunneling No -Circular Undermining No -Exudate Amt Medium -Exudate Type Serosanguineous -Wound Margin Distinct, Outline Attached -Granulation Amt Large (67-100%) -Granulation Quality [place] -Slough/Fibrin Yes -Necrosis Amt Small (1-33%) -Necrotic Tissue Type Adherent Slough -Structure Exposed N/A -Texture (Adrianna-wound Skin Appearance) Assessed, Excoriation -Moisture (Adrianna-wound Skin Appearance) Weeping -Color (Adrianna-wound Skin Appearance) Assessed -Temperature (Adrianna-wound Skin No Abnormality Appearance) (Pt Warm) -Tenderness on Palpation (Adrianna-wound No Skin Appearance) -Ulcer Cleansing Wound Cleanser -Foul Odor after Cleansing No -Anesthetic Used 5% Lidocaine Gel Lower Limb Edema Present Yes Right Calf (cm) 55 Right Ankle (cm) 32.2 Left Calf (cm) 48 Left Ankle (cm) 28.5 WC - Nurse 2 - General Ulcer CM Notes Start: 08/25/24 10:40 Freq: Status: Active Protocol: Activity Type Activity Date Activity User E-sign Co-sign Detail Recorded Client Recorded Date Recorded By Document 08/25/24 11:15 [id number] 08/25/24 11:20 08/25/24 11:15 Wound Center Nurse 2 #9 Left Lateral Allen -Time 11:15 -Correct Patient Yes -Correct Side, Site, Position Yes -Correct Procedure Yes -Procedure Performed Yes -Type of Procedure Debridement -Clinical Debridement Subcutaneous -Tissue Removed Subcutaneous -Post Debridement (cm) - Length 1.0 -Post Debridement (cm) - Width 2.0 -Post Debridement (cm) - Depth 0.1 -Total Square (Post) (cm) 2.00 -Area of Debridement (cm) - Length 1.0 -Area of Debridement (cm) - Width 2.0 -Total Square (Area) (cm) 2.00 -Tunneling No -Undermining/Tunneling No -Circular Undermining No -Wound/Ulcer Outcome Not Healed -Ulcer Cleansing Rinsed/ Irrigated with Saline -Foul Odor after Cleansing No -Bioengineered Tissue No -Bleeding Controlled with Pressure -Treatment Response Procedure Tolerated Well -Debridement - Subq, 1st 20sq cm Yes Pain Scale: 0-10 Numeric Is Patient Pain Free? Yes JESÚS - Nurse 3 - General Ulcer D/C NN Start: 08/25/24 10:40 Freq: Status: Active Protocol: Activity Type Activity Date Activity User E-sign Co-sign Detail Recorded Client Recorded Date Recorded By Document 08/25/24 11:49 RB [id number] 08/25/24 11:51 RB Document 08/25/24 11:58 RB [id number] 08/25/24 11:59 RB 08/25/24 08/25/24 11:49 11:58 Wound Care Center Nurse 3 #9 Left Lateral Allen -Ulcer Cleansing Wound Cleanser -Primary Dressing Applied Promogran, Silicone Border Foam 6x6 -Promogran 1 -Silicone Border Foam 6x6 1 RLE -Lotion applied to leg before Yes compression wrap -Tubular Bandage Double Layer -Size of Tubigrip Used Size F -Size F ($) 2 left -Lotion applied to leg before Yes compression wrap -Tubular Bandage Double Layer -Size of Tubigrip Used Size F -Size F ($) 2 Treatment Response Procedure Tolerated Well Pain Scale: 0-10 Numeric Is Patient Pain Free? Yes Yes WC - Visit Discharge Discharge Condition Stable Ambulatory Status Ambulatory, Walker Transportation Private Auto Medication Reconcilliation completed & No provided to patient/care provider Clinical Summary of Care Provided Yes 08/25/24 11:58 Wound Center by Zahira Nolasco pt instructed on dressing change with promogran and bordered foam then tubigrip Initialized on 08/25/24 11:58 - END OF NOTE Assessment/Plan Assessment/Plan (1) Non-pressure chronic ulcer left lower leg, limited to breakdown skin: CODE(S): L97.921 - Non-pressure chronic ulcer of unspecified part of left lower leg limited to breakdown of skin (2) Venous insufficiency: CODE(S): I87.2 - Venous insufficiency (chronic) (peripheral) (3) Edema of both lower extremities: CODE(S): R60.0 - Localized edema (4) Lymphedema: CODE(S): I89.0 - Lymphedema, not elsewhere classified (5) Essential hypertension: CODE(S): I10 - Essential (primary) hypertension (6) Morbid obesity with BMI of 45.0-49.9, adult: CODE(S): E66.01 - Morbid (severe) obesity due to excess calories; Z68.42 -Body mass index [BMI] 45.0-49.9, adult (7) Venous stasis 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: CODE(S): I83.023 - Varicose veins of left lower extremity with ulcer of ankle; L97.321 - Non-pressure 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 QUALIFIERS: Varicose vein presence: with varicose veins Qualified Code(s): I83.023 - Varicose veinsof left lower extremity with ulcer of ankle; L97.321 - Non-pressure 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 (8) Debility: CODE(S): R53.81 - Other malaise (9) Osteoarthritis: CODE(S): M19.90 - Unspecified osteoarthritis, unspecified site QUALIFIERS: Osteoarthritis location: multiple joints Osteoarthritis type: primary Qualified Code(s): M15.9 - Polyosteoarthritis, unspecified (10) COPD (chronic obstructive pulmonary disease): CODE(S): J44.9 - Chronic obstructive pulmonary disease, unspecified QUALIFIERS: COPD type: unspecified COPD Qualified Code(s): J44.9 - Chronic obstructive pulmonary disease, unspecified (11) Chronic hypoxemic respiratory failure: CODE(S): J96.11 - Chronic respiratory failure with hypoxia (12) Pulmonary hypertension: CODE(S): I27.20 - Pulmonary hypertension, unspecified (13) Hypothyroidism: CODE(S): E03.9 - Hypothyroidism, unspecified QUALIFIERS: Hypothyroidism type: unspecified Qualified Code(s): E03.9 - Hypothyroidism, unspecified (14) Type 2 diabetes mellitus: CODE(S): E11.9 - Type 2 diabetes mellitus without complications QUALIFIERS: Diabetes mellitus residential insulin use: without oil heaterman use Diabetes mellitus complication status: with other specified complication Qualified Code(s): E11.69 - Type 2 diabetes mellitus with other specified complication (15) DOLORES (obstructive sleep apnea): CODE(S): G47.33 - Obstructive sleep apnea (adult) (pediatric) PLAN: Plan Evaluation and debridement performed today in clinic as annotated above. At home wound-care instructions: Will dress her left lower leg with Promogran and Silicone bordereddressing. She was instructed to keep dressings clean and dry. Will have her use lymphedema pumps for 60 minutes 2-3 times daily. Off-loading: The patient was instructed to avoid pressure and friction on the affected areas. Reposition every 2 hours at minimum. Avoid prolonged standing and/or dangling of legs. When seated, feet should be elevated at chest level. Frequent ambulation is encouraged. Diet: Patient encouraged to increase protein intake while taking caution to avoid high carbohydrateand/or sugar intake. Encouraged weight loss. Labs/cultures/imaging: Wound Culture of left allen ulcer showed pseudomonas and MRSA. Ciprofloxacin prescribed. Venous ultrasound showed incompetence of veins of left lower extremity and vascular performed an ablation on 07/27/2024. Culture showed E. faecalis, anaerobic bacteria and Pseudomonas advised to restart Ciprofloxacin and Flagyl was prescribed for Anaerobic bacteria. If no improvement, willprescribe Linezolid. Encouraged her to get her CPAP mask to improve DOLORES and pulmonary HTN treatment compliance which is adding to her decompensated lymphedema. Follow-up: Will have her follow up in 1 week. Return sooner or report to the emergency room should symptoms worsen, or new symptoms arise. Note: webtide speech recognition train control electronic technician software was used to create portions of this document. Sound-alike and misspelled words, as well as other train control electronic technician errors may be contained in the documentation. 08/25/24 1505 Cosigner Signature (if applicable): CC: ~ Signed [facility]02-28-2025 Evaluation note* Diagnosis Onset Date Resolution Status Admit Date 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, limited to breakdown skin acute August 18 9:15am Venous stasis 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 acute August 18 9:15am Chronic hypoxemic respirator y failure chronic August 18 9:15am COPD (chronic obstructive pulmonary disease) chronic July 9:15am Debility chronic August 18, 2024 9:15am Edema of both lower extremities 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 August 18, 2024 9:15am Essential hypertension chronic Fe bruary 2024 9:15am Hypothyroidism chronic July 232024 9:15am Lymphedema chronic August 18, 2024 9:15am Morbid obesity with BMI of 45.0-49.9, adult chronic August 18, 2024 9:15am DOLORES (obstructive sleep apnea) chroni c August 18, 2024 9:15am Osteoarthritis chronic July 232024 9:15am Pulmonary hypertension chronic Fe bruary 2024 9:15am Type 2 diabetes mellitus chronic August 18, 2024 9:15am Venous insufficiency chronic Febr uary 2024 9:15am ATKINS (dyspnea on exertion) chronic August 28, 2024 11:41am Essential hypertension chronic [facility] 2024 11:41am Hyperlipidemia chronic August 11:41am Palpitations chronic August 28, 2024 11:41am 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, limited to breakdown skin acute September 15, 2024 9:30am Venous stasis 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 acute September 15, 2024 9:30am Chronic hypoxemic respirator y failure chronic September 15, 2024 9:30am COPD (chronic obstructive pulmonary disease) chronic September 15, 025 9:30am Debility chronic September 15 9:30am Edema of both lower extremities 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 September 15, 2024 9:30am Essential hypertension chronic [facility] 2024 9:30am Hypothyroidism chronic August 9:30am Lymphedema chronic September 15 9:30am Morbid obesity with BMI of 45.0-49.9, adult chronic September 15 9:30am DOLORES (obstructive sleep apnea) chroni c September 15, 2024 9:30am Osteoarthritis chronic August 9:30am Pulmonary hypertension chronic [facility] 2024 9:30am Type 2 diabetes mellitus chronic September 15, 2024 9:30am Venous insufficiency chronic [facility] 2024 9:30am Dizziness acute October 03 10:44am Essential hypertension chronic Ap ril 2024 10:44am Hyperlipidemia chronic September 10:44am Palpitations chronic October 03, 2024 10:44am 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, limited to breakdown skin acute October 13, 2024 10:00am Venous stasis 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 acute October 13, 2024 10:00am Chronic hypoxemic respirator y failure chronic October 13, 2024 10:00am COPD (chronic obstructive pulmonary disease) chronic October 13, 2 025 10:00am Debility chronic October 13 10:00am Edema of both lower extremities 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0-49.9, adult chronic October 18 1:26pm DOLORES (obstructive sleep apnea) chroni c October 18, 2024 1:26pm Pulmonary hypertension chronic Ap ril 2024 1:26pm Essential hypertension chronic Ma y 2024 10:35am Hypothyroidism chronic November 06, 2024 10:35am Insomnia chronic November 06, 2024 10:35am Cellulitis of left lower extremity acute November 17, 2024 1 0:15am 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, limited to breakdown skin acute November 17, 2024 1 0:15am Venous stasis 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 acute November 17, 2024 1 0:15am Venous stasis ulcer of left calf with fat layer exposed acute November 17, 2024 10:15am Venous stasis ulcer of right calf with fat layer exposed acute November 17, 2024 10:15am Venous ulcer with fat layer exposed acute November 17, 2024 1 0:15am Chronic hypoxemic respirator y failure chronic November 17, 2024 1 0:15am COPD (chronic obstructive pulmonary disease) chronic November 17 10:15am Debility chronic November 17, 2024 10:15am Edema of both lower extremities 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 November 17, 2024 10:15am Essential hypertension chronic Ma y 2024 10:15am Hypothyroidism chronic November 17, 2024 10:15am Lymphedema chronic November 17, 2024 10:15am Morbid obesity with BMI of 45.0-49.9, adult chronic November 17, 2024 10:15am DOLORES (obstructive sleep apnea) chroni c November 17, 2024 10:15am Osteoarthritis chronic November 17, 2024 10:15am Pulmonary hypertension chronic Ma 2024 10:15am Type 2 diabetes mellitus chronic November 17, 2024 10:15am Venous insufficiency chronic November 17, 2024 10:15am Cellulitis of left lower extremity acute November 24, 2024 7 :27am 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, limited to breakdown skin acute November 24, 2024 7 :27am Venous stasis ulcer of left calf with fat layer exposed acute November 24, 2024 7:27am Venous stasis ulcer of right calf with fat layer exposed acute November 24, 2024 7:27am Venous ulcer with fat layer exposed acute November 24, 2024 7 :27am Chronic hypoxemic respirator y failure chronic November 24, 2024 7 :27am COPD (chronic obstructive pulmonary disease) chronic November 24 7:27am Debility chronic November 24, 2024 7:27am Edema of both lower extremities 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 Work Phone: 1(961) 184-543502-12-2025 Evaluation note* Diagnosis Onset Date Resolution Status Admit Date Lymphedema chronic August 02, 2024 9:52am Venous insufficiency (chroni c) (peripheral) chronic August 02 025 9:52am 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, limited to breakdown skin acute August 18, 025 9:15am Venous stasis 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 acute August 18, 025 9:15am Chronic hypoxemic respirator y failure chronic August 18, 025 9:15am COPD (chronic obstructive pulmonary disease) chronic July 9:15am Debility chronic August 18, 2024 9:15am Edema of both lower extremities 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 August 18, 2024 9:15am Essential hypertension chronic 2024 9:15am Hypothyroidism chronic July 232024 9:15am Lymphedema chronic August 18, 2024 9:15am Morbid obesity with BMI of 45.0-49.9, adult chronic August 18, 2024 9:15am DOLORES (obstructive sleep apnea) chroni c August 18, 2024 9:15am Osteoarthritis chronic July 232024 9:15am Pulmonary hypertension chronic Fe holcomb 2024 9:15am Type 2 diabetes mellitus chronic August 18, 2024 9:15am Venous insufficiency chronic [facility] uary 2024 9:15am ATKINS (dyspnea on exertion) chronic August 28, 2024 11:41am Essential hypertension chronic [facility] 2024 11:41am Hyperlipidemia chronic August 11:41am Palpitations chronic August 28, 2024 11:41am 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, limited to breakdown skin acute September 15, 2024 9:30am Venous stasis 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 acute September 15, 2024 9:30am Chronic hypoxemic respirator y failure chronic September 15, 2024 9:30am COPD (chronic obstructive pulmonary disease) chronic September 15, 025 9:30am Debility chronic September 15 9:30am Edema of both lower extremities 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 September 15, 2024 9:30am Essential hypertension chronic [facility] 2024 9:30am Hypothyroidism chronic August 9:30am Lymphedema chronic September 15 9:30am Morbid obesity with BMI of 45.0-49.9, adult chronic September 15 9:30am DOLORES (obstructive sleep apnea) chroni c September 15, 2024 9:30am Osteoarthritis chronic August 9:30am Pulmonary hypertension chronic [facility] 2024 9:30am Type 2 diabetes mellitus chronic September 15, 2024 9:30am Venous insufficiency chronic [facility] 2024 9:30am Dizziness acute October 03 10:44am Essential hypertension chronic Ap ril 2024 10:44am Hyperlipidemia chronic September 10:44am Palpitations chronic October 03, 2024 10:44am 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, limited to breakdown skin acute October 13, 2024 10:00am Venous stasis 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 acute October 13, 2024 10:00am Chronic hypoxemic respirator y failure chronic October 13, 2024 10:00am COPD (chronic obstructive pulmonary disease) chronic October 13, 2 025 10:00am Debility chronic October 13 10:00am Edema of both lower extremities 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 October 13, 2024 10:00am Essential hypertension chronic Ap ril 2024 10:00am Hypothyroidism chronic September 10:00am Lymphedema chronic October 13 10:00am Morbid obesity with BMI of 45.0-49.9, adult chronic October 13 10:00am DOLORES (obstructive sleep apnea) chroni c October 13, 2024 10:00am Osteoarthritis chronic September 10:00am Pulmonary hypertension chronic Ap ril 2024 10:00am Type 2 diabetes mellitus chronic October 13, 2024 10:00am Venous insufficiency chronic Apri l 2024 10:00am 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 A pril 2024 1:26pm Morbid obesity with BMI of 45.0-49.9, adult chronic October 18 1:26pm DOLORES (obstructive sleep apnea) chroni c October 18, 2024 1:26pm Pulmonary hypertension chronic Ap ril 2024 1:26pm Essential hypertension chronic Ma y 2024 10:35am Hypothyroidism chronic November 06, 2024 10:35am Insomnia chronic November 06, 2024 10:35am Cellulitis of left lower extremity acute November 17, 2024 1 0:15am 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, limited to breakdown skin acute November 17, 2024 1 0:15am Venous stasis 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 acute November 17, 2024 1 0:15am Venous stasis ulcer of left calf with fat layer exposed acute November 17, 2024 10:15am Venous stasis ulcer of right calf with fat layer exposed acute November 17, 2024 10:15am Venous ulcer with fat layer exposed acute November 17, 2024 1 0:15am Chronic hypoxemic respirator y failure chronic November 17, 2024 1 0:15am COPD (chronic obstructive pulmonary disease) chronic November 17 10:15am Debility chronic November 17, 2024 10:15am Edema of both lower extremities 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 November 17, 2024 10:15am Essential hypertension chronic Ma y 2024 10:15am Hypothyroidism chronic November 17, 2024 10:15am Lymphedema chronic November 17, 2024 10:15am Morbid obesity with BMI of 45.0-49.9, adult chronic November 17, 2024 10:15am DOLORES (obstructive sleep apnea) chroni c November 17, 2024 10:15am Osteoarthritis chronic November 17, 2024 10:15am Pulmonary hypertension chronic Ma y 2024 10:15am Type 2 diabetes mellitus chronic November 17, 2024 10:15am Venous insufficiency chronic November 17, 2024 10:15am Cellulitis of left lower extremity acute November 24, 2024 7 :27am 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, limited to breakdown skin acute November 24, 2024 7 :27am Venous stasis ulcer of left calf with fat layer exposed acute November 24, 2024 7:27am Venous stasis ulcer of right calf with fat layer exposed acute November 24, 2024 7:27am Venous ulcer with fat layer exposed acute November 24, 2024 7 :27am Chronic hypoxemic respirator y failure chronic November 24, 2024 7 :27am COPD (chronic obstructive pulmonary disease) chronic November 24 7:27am Debility chronic November 24, 2024 7:27am Edema of both lower extremities 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 Work Phone: [phone]) 588-971902-06-2025 [facility]02-06-2025 Evaluation note* Diagnosis Onset Date Resolution Status Admit Date Venous stasis 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 acute July 27 8:33am Lymphedema chronic August 02, 2024 9:52am Venous insufficiency (chroni c) (peripheral) chronic August 02 9:52am 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, limited to breakdown skin acute August 18 9:15am Venous stasis 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 acute August 18 9:15am Chronic hypoxemic respirator y failure chronic August 18 9:15am COPD (chronic obstructive pulmonary disease) chronic July 9:15am Debility chronic August 18, 2024 9:15am Edema of both lower extremities 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 August 18, 2024 9:15am Essential hypertension chronic 2024 9:15am Hypothyroidism chronic July 232024 9:15am Lymphedema chronic August 18, 2024 9:15am Morbid obesity with BMI of 45.0-49.9, adult chronic August 18, 2024 9:15am DOLORES (obstructive sleep apnea) chroni c August 18, 2024 9:15am Osteoarthritis chronic July 232024 9:15am Pulmonary hypertension chronic holcomb 2024 9:15am Type 2 diabetes mellitus chronic August 18, 2024 9:15am Venous insufficiency chronic Febr uary 2024 9:15am ATKINS (dyspnea on exertion) chronic August 28, 2024 11:41am Essential hypertension chronic [facility] 2024 11:41am Hyperlipidemia chronic August 11:41am Palpitations chronic August 28, 2024 11:41am 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, limited to breakdown skin acute September 15, 2024 9:30am Venous stasis 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 acute September 15, 2024 9:30am Chronic hypoxemic respirator y failure chronic September 15, 2024 9:30am COPD (chronic obstructive pulmonary disease) chronic September 15, 2 025 9:30am Debility chronic September 15 9:30am Edema of both lower extremities 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 September 15, 2024 9:30am Essential hypertension chronic Ma [facility] 2024 9:30am Hypothyroidism chronic August 9:30am Lymphedema chronic September 15 9:30am Morbid obesity with BMI of 45.0-49.9, adult chronic September 15 9:30am DOLORES (obstructive sleep apnea) chroni c September 15, 2024 9:30am Osteoarthritis chronic August 9:30am Pulmonary hypertension chronic Ma rch 2024 9:30am Type 2 diabetes mellitus chronic September 15, 2024 9:30am Venous insufficiency chronic Ajith h 2024 9:30am Dizziness acute October 03 10:44am Essential hypertension chronic Ap ril 2024 10:44am Hyperlipidemia chronic September 10:44am Palpitations chronic October 03, 2024 10:44am 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, limited to breakdown skin acute October 13, 2024 10:00am Venous stasis 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 acute October 13, 2024 10:00am Chronic hypoxemic respirator y failure chronic October 13, 2024 10:00am COPD (chronic obstructive pulmonary disease) chronic October 13, 025 10:00am Debility chronic October 13 10:00am Edema of both lower extremities 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 October 13, 2024 10:00am Essential hypertension chronic Ap ril 2024 10:00am Hypothyroidism chronic September 10:00am Lymphedema chronic October 13 10:00am Morbid obesity with BMI of 45.0-49.9, adult chronic October 13 10:00am DOLORES (obstructive sleep apnea) chroni c October 13, 2024 10:00am Osteoarthritis chronic September 10:00am Pulmonary hypertension chronic Ap ril 2024 10:00am Type 2 diabetes mellitus chronic October 13, 2024 10:00am Venous insufficiency chronic Apri l 2024 10:00am 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 A pril 2024 1:26pm Morbid obesity with BMI of 45.0-49.9, adult chronic October 18 1:26pm DOLORES (obstructive sleep apnea) chroni c October 18, 2024 1:26pm Pulmonary hypertension chronic Ap ril 2024 1:26pm Essential hypertension chronic Ma y 2024 10:35am Hypothyroidism chronic November 06, 2024 10:35am Insomnia chronic November 06, 2024 10:35am Cellulitis of left lower extremity acute November 17, 2024 1 0:15am 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, limited to breakdown skin acute November 17, 2024 1 0:15am Venous stasis 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 acute November 17, 2024 1 0:15am Venous stasis ulcer of left calf with fat layer exposed acute November 17, 2024 10:15am Venous stasis ulcer of right calf with fat layer exposed acute November 17, 2024 10:15am Venous ulcer with fat layer exposed acute November 17, 2024 1 0:15am Chronic hypoxemic respirator y failure chronic November 17, 2024 1 0:15am COPD (chronic obstructive pulmonary disease) chronic November 17 10:15am Debility chronic November 17, 2024 10:15am Edema of both lower extremities 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 July 21, 2024 10:00am Essential hypertension chronic [facility] 2024 10:00am Hypothyroidism chronic July 212024 10:00am Lymphedema chronic July 21, 2024 10:00am Morbid obesity with BMI of 45.0-49.9, adult chronic July 21, 10:00am DOLORES (obstructive sleep apnea) chroni c July 21, 2024 10:00am Osteoarthritis chronic July 212024 10:00am Pulmonary hypertension chronic [facility] 2024 10:00am Type 2 diabetes mellitus chronic July 21, 2024 10:00am Venous insufficiency chronic [facility] 2024 10:00am Venous stasis 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 acute July 27 8:33am Lymphedema chronic August 02, 2024 9:52am Venous insufficiency (chroni c) (peripheral) chronic August 02, 9:52am 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, limited to breakdown skin acute August 18, 025 9:15am Venous stasis 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 acute August 18, 025 9:15am Chronic hypoxemic respirator y failure chronic August 18, 9:15am COPD (chronic obstructive pulmonary disease) chronic July 9:15am Debility chronic August 18, 2024 9:15am Edema of both lower extremities 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 August 18, 2024 9:15am Essential hypertension chronic [facility] 2024 9:15am Hypothyroidism chronic July 232024 9:15am Lymphedema chronic August 18, 2024 9:15am Morbid obesity with BMI of 45.0-49.9, adult chronic August 18, 2024 9:15am DOLORES (obstructive sleep apnea) chroni c August 18, 2024 9:15am Osteoarthritis chronic July 232024 9:15am Pulmonary hypertension chronic [facility] 2024 9:15am Type 2 diabetes mellitus chronic August 18, 2024 9:15am Venous insufficiency chronic [facility] 2024 9:15am ATKINS (dyspnea on exertion) chronic August 28, 2024 11:41am Essential hypertension chronic [facility] 2024 11:41am Hyperlipidemia chronic August 11:41am Palpitations chronic August 28, 2024 11:41am 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, limited to breakdown skin acute September 15, 2024 9:30am Venous stasis 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 acute September 15, 2024 9:30am Chronic hypoxemic respirator y failure chronic September 15, 2024 9:30am COPD (chronic obstructive pulmonary disease) chronic September 15, 025 9:30am Debility chronic September 15 9:30am Edema of both lower extremities 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 September 15, 2024 9:30am Essential hypertension chronic [facility] 2024 9:30am Hypothyroidism chronic August 9:30am Lymphedema chronic September 15 9:30am Morbid obesity with BMI of 45.0-49.9, adult chronic September 15 9:30am DOLORES (obstructive sleep apnea) chroni c September 15, 2024 9:30am Osteoarthritis chronic August 9:30am Pulmonary hypertension chronic [facility] 2024 9:30am Type 2 diabetes mellitus chronic September 15, 2024 9:30am Venous insufficiency chronic [facility] 2024 9:30am Dizziness acute October 03 10:44am Essential hypertension chronic Ap ril 2024 10:44am Hyperlipidemia chronic September 10:44am Palpitations chronic October 03, 2024 10:44am 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, limited to breakdown skin acute October 13, 2024 10:00am Venous stasis 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 acute October 13, 2024 10:00am Chronic hypoxemic respirator y failure chronic October 13, 2024 10:00am COPD (chronic obstructive pulmonary disease) chronic October 13, 2 025 10:00am Debility chronic October 13 10:00am Edema of both lower extremities 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 October 13, 2024 10:00am Essential hypertension chronic Ap ril 2024 10:00am Hypothyroidism chronic September 10:00am Lymphedema chronic October 13 10:00am Morbid obesity with BMI of 45.0-49.9, adult chronic October 13 10:00am DOLORES (obstructive sleep apnea) chroni c October 13, 2024 10:00am Osteoarthritis chronic September 10:00am Pulmonary hypertension chronic Ap ril 2024 10:00am Type 2 diabetes mellitus chronic October 13, 2024 10:00am Venous insufficiency chronic Apri l 2024 10:00am 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 A pril 2024 1:26pm Morbid obesity with BMI of 45.0-49.9, adult chronic October 18 1:26pm DOLORES (obstructive sleep apnea) chroni c October 18, 2024 1:26pm Pulmonary hypertension chronic Ap ril 2024 1:26pm 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, limited to breakdown skin acute November 03, 2024 1 0:00am Venous stasis 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 acute November 03, 2024 1 0:00am Chronic hypoxemic respirator y failure chronic November 03, 2024 1 0:00am COPD (chronic obstructive pulmonary disease) chronic November 03 10:00am Debility chronic November 03, 2024 10:00am Edema of both lower extremities 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 July 21, 2024 10:00am Essential hypertension chronic [facility] 2024 10:00am Hypothyroidism chronic July 212024 10:00am Lymphedema chronic July 21, 2024 10:00am Morbid obesity with BMI of 45.0-49.9, adult chronic July 21 10:00am DOLORES (obstructive sleep apnea) chroni c July 21, 2024 10:00am Osteoarthritis chronic July 212024 10:00am Pulmonary hypertension chronic [facility] 2024 10:00am Type 2 diabetes mellitus chronic July 21, 2024 10:00am Venous insufficiency chronic [facility] 2024 10:00am Venous stasis 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 acute July 27 8:33am Lymphedema chronic August 02, 2024 9:52am Venous insufficiency (chroni c) (peripheral) chronic August 02, 9:52am 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, limited to breakdown skin acute August 18, 025 9:15am Venous stasis 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 acute August 18, 025 9:15am Chronic hypoxemic respirator y failure chronic August 18 025 9:15am COPD (chronic obstructive pulmonary disease) chronic July 9:15am Debility chronic August 18, 2024 9:15am Edema of both lower extremities 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 August 18, 2024 9:15am Essential hypertension chronic [facility] 2024 9:15am Hypothyroidism chronic July 232024 9:15am Lymphedema chronic August 18, 2024 9:15am Morbid obesity with BMI of 45.0-49.9, adult chronic August 18, 2024 9:15am DOLORES (obstructive sleep apnea) chroni c August 18, 2024 9:15am Osteoarthritis chronic July 232024 9:15am Pulmonary hypertension chronic Fe bruary 2024 9:15am Type 2 diabetes mellitus chronic August 18, 2024 9:15am Venous insufficiency chronic Febr uary 2024 9:15am ATKINS (dyspnea on exertion) chronic August 28, 2024 11:41am Essential hypertension chronic [facility] 2024 11:41am Hyperlipidemia chronic August 11:41am Palpitations chronic August 28, 2024 11:41am 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, limited to breakdown skin acute September 15, 2024 9:30am Venous stasis 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 acute September 15, 2024 9:30am Chronic hypoxemic respirator y failure chronic September 15, 2024 9:30am COPD (chronic obstructive pulmonary disease) chronic September 15, 025 9:30am Debility chronic September 15 9:30am Edema of both lower extremities 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 September 15, 2024 9:30am Essential hypertension chronic [facility] 2024 9:30am Hypothyroidism chronic August 9:30am Lymphedema chronic September 15 9:30am Morbid obesity with BMI of 45.0-49.9, adult chronic September 15 9:30am DOLORES (obstructive sleep apnea) chroni c September 15, 2024 9:30am Osteoarthritis chronic August 9:30am Pulmonary hypertension chronic [facility] 2024 9:30am Type 2 diabetes mellitus chronic September 15, 2024 9:30am Venous insufficiency chronic [facility] 2024 9:30am Dizziness acute October 03 10:44am Essential hypertension chronic Ap ril 2024 10:44am Hyperlipidemia chronic September 10:44am Palpitations chronic October 03, 2024 10:44am 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, limited to breakdown skin acute October 13, 2024 10:00am Venous stasis 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 acute October 13, 2024 10:00am Chronic hypoxemic respirator y failure chronic October 13, 2024 10:00am COPD (chronic obstructive pulmonary disease) chronic October 13, 2 025 10:00am Debility chronic October 13 10:00am Edema of both lower extremities 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 October 13, 2024 10:00am Essential hypertension chronic Ap ril 2024 10:00am Hypothyroidism chronic September 10:00am Lymphedema chronic October 13 10:00am Morbid obesity with BMI of 45.0-49.9, adult chronic October 13 10:00am DOLORES (obstructive sleep apnea) chroni c October 13, 2024 10:00am Osteoarthritis chronic September 10:00am Pulmonary hypertension chronic Ap ril 2024 10:00am Type 2 diabetes mellitus chronic October 13, 2024 10:00am Venous insufficiency chronic Apri l 2024 10:00am 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 A pril 2024 1:26pm Morbid obesity with BMI of 45.0-49.9, adult chronic October 18 1:26pm DOLORES (obstructive sleep apnea) chroni c October 18, 2024 1:26pm Pulmonary hypertension chronic Ap ril 2024 1:26pm Essential hypertension chronic Ma y 2024 10:35am Hypothyroidism chronic November 06, 2024 10:35am Insomnia chronic November 06, 2024 10:35am Cellulitis of left lower extremity acute November 10, 2024 1 0:15am 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, limited to breakdown skin acute November 10, 2024 1 0:15am Venous stasis 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 acute November 10, 2024 1 0:15am Chronic hypoxemic respirator y failure chronic November 10, 2024 1 0:15am COPD (chronic obstructive pulmonary disease) chronic November 10 10:15am Debility chronic November 10, 2024 10:15am Edema of both lower extremities 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 July 21, 2024 10:00am Essential hypertension chronic 2024 10:00am Hypothyroidism chronic July 212024 10:00am Lymphedema chronic July 21, 2024 10:00am Morbid obesity with BMI of 45.0-49.9, adult chronic July 21 10:00am DOLORES (obstructive sleep apnea) chroni c July 21, 2024 10:00am Osteoarthritis chronic July 212024 10:00am Pulmonary hypertension chronic [facility] 2024 10:00am Type 2 diabetes mellitus chronic July 21, 2024 10:00am Venous insufficiency chronic [facility] 2024 10:00am Venous stasis 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 acute July 27 8:33am Lymphedema chronic August 02, 2024 9:52am Venous insufficiency (chroni c) (peripheral) chronic August 02 9:52am 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, limited to breakdown skin acute August 18 025 9:15am Venous stasis 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 acute August 18 025 9:15am Chronic hypoxemic respirator y failure chronic August 18 025 9:15am COPD (chronic obstructive pulmonary disease) chronic July 9:15am Debility chronic August 18, 2024 9:15am Edema of both lower extremities 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 August 18, 2024 9:15am Essential hypertension chronic Fe bruary 2024 9:15am Hypothyroidism chronic July 232024 9:15am Lymphedema chronic August 18, 2024 9:15am Morbid obesity with BMI of 45.0-49.9, adult chronic August 18, 2024 9:15am DOLORES (obstructive sleep apnea) chroni c August 18, 2024 9:15am Osteoarthritis chronic July 232024 9:15am Pulmonary hypertension chronic Fe bruary 2024 9:15am Type 2 diabetes mellitus chronic August 18, 2024 9:15am Venous insufficiency chronic Febr uary 2024 9:15am ATKINS (dyspnea on exertion) chronic August 28, 2024 11:41am Essential hypertension chronic [facility] 2024 11:41am Hyperlipidemia chronic August 11:41am Palpitations chronic August 28, 2024 11:41am 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, limited to breakdown skin acute September 15, 2024 9:30am Venous stasis 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 acute September 15, 2024 9:30am Chronic hypoxemic respirator y failure chronic September 15, 2024 9:30am COPD (chronic obstructive pulmonary disease) chronic September 15, 025 9:30am Debility chronic September 15 9:30am Edema of both lower extremities 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 September 15, 2024 9:30am Essential hypertension chronic [facility] 2024 9:30am Hypothyroidism chronic August 9:30am Lymphedema chronic September 15 9:30am Morbid obesity with BMI of 45.0-49.9, adult chronic September 15 9:30am DOLORES (obstructive sleep apnea) chroni c September 15, 2024 9:30am Osteoarthritis chronic August 9:30am Pulmonary hypertension chronic [facility] 2024 9:30am Type 2 diabetes mellitus chronic September 15, 2024 9:30am Venous insufficiency chronic [facility] 2024 9:30am Dizziness acute October 03 10:44am Essential hypertension chronic Ap ril 2024 10:44am Hyperlipidemia chronic September 10:44am Palpitations chronic October 03, 2024 10:44am 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, limited to breakdown skin acute October 13, 2024 10:00am Venous stasis 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 acute October 13, 2024 10:00am Chronic hypoxemic respirator y failure chronic October 13, 2024 10:00am COPD (chronic obstructive pulmonary disease) chronic October 13, 025 10:00am Debility chronic October 13 10:00am Edema of both lower extremities 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 October 13, 2024 10:00am Essential hypertension chronic Ap ril 2024 10:00am Hypothyroidism chronic September 10:00am Lymphedema chronic October 13 10:00am Morbid obesity with BMI of 45.0-49.9, adult chronic October 13 10:00am DOLORES (obstructive sleep apnea) chroni c October 13, 2024 10:00am Osteoarthritis chronic September 10:00am Pulmonary hypertension chronic Ap ril 2024 10:00am Type 2 diabetes mellitus chronic October 13, 2024 10:00am Venous insufficiency chronic Apri 2024 10:00am 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 A pril 2024 1:26pm Morbid obesity with BMI of 45.0-49.9, adult chronic October 18 1:26pm DOLORES (obstructive sleep apnea) chroni c October 18, 2024 1:26pm Pulmonary hypertension chronic Ap ril 2024 1:26pm Essential hypertension chronic Ma y 2024 10:35am Hypothyroidism chronic November 06, 2024 10:35am Insomnia chronic November 06, 2024 10:35am Cellulitis of left lower extremity acute November 15, 2024 1 0:00am 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, limited to breakdown skin acute November 15, 2024 1 0:00am Venous stasis 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 acute November 15, 2024 1 0:00am Chronic hypoxemic respirator y failure chronic November 15, 2024 1 0:00am COPD (chronic obstructive pulmonary disease) chronic November 15 10:00am Debility chronic November 15, 2024 10:00am Edema of both lower extremities 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 July 21, 2024 10:00am Essential hypertension chronic [facility] 2024 10:00am Hypothyroidism chronic July 212024 10:00am Lymphedema chronic July 21, 2024 10:00am Morbid obesity with BMI of 45.0-49.9, adult chronic July 21 10:00am DOLORES (obstructive sleep apnea) chroni c July 21, 2024 10:00am Osteoarthritis chronic July 212024 10:00am Pulmonary hypertension chronic [facility] 2024 10:00am Type 2 diabetes mellitus chronic July 21, 2024 10:00am Venous insufficiency chronic [facility] 2024 10:00am Venous stasis 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 acute July 27 8:33am Lymphedema chronic August 02, 2024 9:52am Venous insufficiency (chroni c) (peripheral) chronic August 02 025 9:52am 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, limited to breakdown skin acute August 18 9:15am Venous stasis 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 acute August 18 9:15am Chronic hypoxemic respirator y failure chronic August 18 9:15am COPD (chronic obstructive pulmonary disease) chronic July 9:15am Debility chronic August 18, 2024 9:15am Edema of both lower extremities 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 August 18, 2024 9:15am Essential hypertension chronic [facility] 2024 9:15am Hypothyroidism chronic July 232024 9:15am Lymphedema chronic August 18, 2024 9:15am Morbid obesity with BMI of 45.0-49.9, adult chronic August 18, 2024 9:15am DOLORES (obstructive sleep apnea) chroni c August 18, 2024 9:15am Osteoarthritis chronic July 232024 9:15am Pulmonary hypertension chronic [facility] 2024 9:15am Type 2 diabetes mellitus chronic August 18, 2024 9:15am Venous insufficiency chronic [facility] 2024 9:15am ATKINS (dyspnea on exertion) chronic August 28, 2024 11:41am Essential hypertension chronic Mi 2024 11:41am Hyperlipidemia chronic August 11:41am Palpitations chronic August 28, 2024 11:41am 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, limited to breakdown skin acute September 15, 2024 9:30am Venous stasis 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 acute September 15, 2024 9:30am Chronic hypoxemic respirator y failure chronic September 15, 2024 9:30am COPD (chronic obstructive pulmonary disease) chronic September 15 9:30am Debility chronic September 15 9:30am Edema of both lower extremities 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 September 15, 2024 9:30am Essential hypertension chronic [facility] 2024 9:30am Hypothyroidism chronic August 9:30am Lymphedema chronic September 15 9:30am Morbid obesity with BMI of 45.0-49.9, adult chronic September 15 9:30am DOLORES (obstructive sleep apnea) chroni c September 15, 2024 9:30am Osteoarthritis chronic August 9:30am Pulmonary hypertension chronic Ma rch 2024 9:30am Type 2 diabetes mellitus chronic September 15, 2024 9:30am Venous insufficiency chronic Ajith h 2024 9:30am Dizziness acute October 03 10:44am Essential hypertension chronic Ap ril 2024 10:44am Hyperlipidemia chronic September 10:44am Palpitations chronic October 03, 2024 10:44am 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, limited to breakdown skin acute October 13, 2024 10:00am Venous stasis 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 acute October 13, 2024 10:00am Chronic hypoxemic respirator y failure chronic October 13, 2024 10:00am COPD (chronic obstructive pulmonary disease) chronic October 13, 10:00am Debility chronic October 13 10:00am Edema of both lower extremities 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 October 13, 2024 10:00am Essential hypertension chronic Ap ril 2024 10:00am Hypothyroidism chronic September 10:00am Lymphedema chronic October 13 10:00am Morbid obesity with BMI of 45.0-49.9, adult chronic October 13 10:00am DOLORES (obstructive sleep apnea) chroni c October 13, 2024 10:00am Osteoarthritis chronic September 10:00am Pulmonary hypertension chronic Ap ril 2024 10:00am Type 2 diabetes mellitus chronic October 13, 2024 10:00am Venous insufficiency chronic Apri l 2024 10:00am 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 A pril 2024 1:26pm Morbid obesity with BMI of 45.0-49.9, adult chronic October 18 1:26pm DOLORES (obstructive sleep apnea) chroni c October 18, 2024 1:26pm Pulmonary hypertension chronic Ap ril 2024 1:26pm Essential hypertension chronic Ma y 2024 10:35am Hypothyroidism chronic November 06, 2024 10:35am Insomnia chronic November 06, 2024 10:35am Cellulitis of left lower extremity acute November 17, 2024 1 0:15am 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, limited to breakdown skin acute November 17, 2024 1 0:15am Venous stasis 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 acute November 17, 2024 1 0:15am Venous stasis ulcer of left calf with fat layer exposed acute November 17, 2024 10:15am Venous stasis ulcer of right calf with fat layer exposed acute November 17, 2024 10:15am Venous ulcer with fat layer exposed acute November 17, 2024 1 0:15am Chronic hypoxemic respirator y failure chronic November 17, 2024 1 0:15am COPD (chronic obstructive pulmonary disease) chronic November 17 10:15am Debility chronic November 17, 2024 10:15am Edema of both lower extremities 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 Work Phone: 1(889) 122-917812-19-2024 Evaluation note* Diagnosis Onset Date Resolution Status Admit Date Essential hypertension chronic De [id number] 5:17pm Fatigue chronic June 08, 2024 5:17pm Hypothyroidism chronic May 212023 5:17pm DOLORES (obstructive sleep apnea) chroni c June 08, 2024 5:17pm Type 2 diabetes mellitus chronic June 08, 2024 5:17pm 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, limited to breakdown skin acute June 16 10:30am Venous stasis 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 acute June 16 10:30am Chronic hypoxemic respirator y failure chronic June 16 10:30am COPD (chronic obstructive pulmonary disease) chronic May 10:30am Debility chronic June 16, 2024 10:30am Edema of both lower extremities 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 June 16, 2024 10:30am Essential hypertension chronic 2023 10:30am Hypothyroidism chronic May 222023 10:30am Lymphedema chronic June 16, 2024 10:30am Morbid obesity with BMI of 45.0-49.9, adult chronic June 16, 2024 10:30am DOLORES (obstructive sleep apnea) chroni c June 16, 2024 10:30am Osteoarthritis chronic May 222023 10:30am Pulmonary hypertension chronic 2023 10:30am Type 2 diabetes mellitus chronic June 16, 2024 10:30am Venous insufficiency chronic [facility] 2023 10:30am 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, limited to breakdown skin acute July 21 10:00am Venous stasis 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 acute July 21 10:00am Chronic hypoxemic respirator y failure chronic July 21 10:00am COPD (chronic obstructive pulmonary disease) chronic July 21, 2024 10:00am Debility chronic July 21, 2024 10:00am Edema of both lower extremities 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 July 21, 2024 10:00am Essential hypertension chronic 2024 10:00am Hypothyroidism chronic July 212024 10:00am Lymphedema chronic July 21, 2024 10:00am Morbid obesity with BMI of 45.0-49.9, adult chronic July 21 10:00am DOLORES (obstructive sleep apnea) chroni c July 21, 2024 10:00am Osteoarthritis chronic July 212024 10:00am Pulmonary hypertension [facility] 2024 10:00am Type 2 diabetes mellitus chronic July 21, 2024 10:00am Venous insufficiency chronic [facility] 2024 10:00am Venous stasis 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 acute July 27 8:33am Lymphedema chronic August 02, 2024 9:52am Venous insufficiency (chroni c) (peripheral) chronic August 02 9:52am 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, limited to breakdown skin acute August 18 9:15am Venous stasis 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 acute August 18 9:15am Chronic hypoxemic respirator y failure chronic August 18 9:15am COPD (chronic obstructive pulmonary disease) chronic July 9:15am Debility chronic August 18, 2024 9:15am Edema of both lower extremities 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 August 18, 2024 9:15am Essential hypertension chronic [facility] 2024 9:15am Hypothyroidism chronic July 232024 9:15am Lymphedema chronic August 18, 2024 9:15am Morbid obesity with BMI of 45.0-49.9, adult chronic August 18, 2024 9:15am DOLORES (obstructive sleep apnea) chroni c August 18, 2024 9:15am Osteoarthritis chronic July 232024 9:15am Pulmonary hypertension chronic [facility] 2024 9:15am Type 2 diabetes mellitus chronic August 18, 2024 9:15am Venous insufficiency chronic [facility] 2024 9:15am ATKINS (dyspnea on exertion) chronic August 28, 2024 11:41am Essential hypertension chronic [facility] 2024 11:41am Hyperlipidemia chronic August 11:41am Palpitations chronic August 28, 2024 11:41am 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, limited to breakdown skin acute September 15, 2024 9:30am Venous stasis 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 acute September 15, 2024 9:30am Chronic hypoxemic respirator y failure chronic September 15, 2024 9:30am COPD (chronic obstructive pulmonary disease) chronic September 15 9:30am Debility chronic September 15 9:30am Edema of both lower extremities 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 September 15, 2024 9:30am Essential hypertension chronic [facility] 2024 9:30am Hypothyroidism chronic August 9:30am Lymphedema chronic September 15 9:30am Morbid obesity with BMI of 45.0-49.9, adult chronic September 15 9:30am DOLORES (obstructive sleep apnea) chroni c September 15, 2024 9:30am Osteoarthritis chronic August 9:30am Pulmonary hypertension chronic [facility] 2024 9:30am Type 2 diabetes mellitus chronic September 15, 2024 9:30am Venous insufficiency chronic [facility] 2024 9:30am [facility] Work Phone: 1(696) 337-183411-22-2024 Evaluation note* Diagnosis Onset Date Resolution Status Admit Date 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, limited to breakdown skin acute May 12 10:45am Venous stasis 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 acute May 12 10:45am Chronic hypoxemic respirator y failure chronic May 12 10:45am COPD (chronic obstructive pulmonary disease) chronic April 10:45am Debility chronic May 12, 2024 10:45am Edema of both lower extremities 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 May 12, 2024 10:45am Essential hypertension chronic No 2023 10:45am Hypothyroidism chronic April 222023 10:45am Lymphedema chronic May 12, 2024 10:45am Morbid obesity with BMI of 45.0-49.9, adult chronic May 12, 2024 10:45am DOLORES (obstructive sleep apnea) chroni c May 12, 2024 10:45am Osteoarthritis chronic April 222023 10:45am Pulmonary hypertension chronic No 2023 10:45am Type 2 diabetes mellitus chronic May 12, 2024 10:45am Venous insufficiency chronic [facility] 2023 10:45am Essential hypertension chronic De 2023 5:17pm Fatigue chronic June 08, 2024 5:17pm Hypothyroidism chronic May 212023 5:17pm DOLORES (obstructive sleep apnea) chroni c June 08, 2024 5:17pm Type 2 diabetes mellitus chronic June 08, 2024 5:17pm 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, limited to breakdown skin acute June 16 10:30am Venous stasis 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 acute June 16 10:30am Chronic hypoxemic respirator y failure chronic June 16 10:30am COPD (chronic obstructive pulmonary disease) chronic May 10:30am Debility chronic June 16, 2024 10:30am Edema of both lower extremities 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 June 16, 2024 10:30am Essential hypertension chronic 2023 10:30am Hypothyroidism chronic May 222023 10:30am Lymphedema chronic June 16, 2024 10:30am Morbid obesity with BMI of 45.0-49.9, adult chronic June 16, 2024 10:30am DOLORES (obstructive sleep apnea) chroni c June 16, 2024 10:30am Osteoarthritis chronic May 222023 10:30am Pulmonary hypertension chronic 2023 10:30am Type 2 diabetes mellitus chronic June 16, 2024 10:30am Venous insufficiency chronic [facility] 2023 10:30am 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, limited to breakdown skin acute July 21 10:00am Venous stasis 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 acute July 21 10:00am Chronic hypoxemic respirator y failure chronic July 21 10:00am COPD (chronic obstructive pulmonary disease) chronic July 21, 2024 10:00am Debility chronic July 21, 2024 10:00am Edema of both lower extremities 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 July 21, 2024 10:00am Essential hypertension chronic 2024 10:00am Hypothyroidism chronic July 212024 10:00am Lymphedema chronic July 21, 2024 10:00am Morbid obesity with BMI of 45.0-49.9, adult chronic July 21 10:00am DOLORES (obstructive sleep apnea) chroni c July 21, 2024 10:00am Osteoarthritis chronic July 212024 10:00am Pulmonary hypertension [facility] 2024 10:00am Type 2 diabetes mellitus chronic July 21, 2024 10:00am Venous insufficiency chronic [facility] 2024 10:00am Venous stasis 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 acute July 27 8:33am Lymphedema chronic August 02, 2024 9:52am Venous insufficiency (chroni c) (peripheral) chronic August 02 9:52am 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, limited to breakdown skin acute August 18 9:15am Venous stasis 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 acute August 18 9:15am Chronic hypoxemic respirator y failure chronic August 18 9:15am COPD (chronic obstructive pulmonary disease) chronic July 9:15am Debility chronic August 18, 2024 9:15am Edema of both lower extremities 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 August 18, 2024 9:15am Essential hypertension chronic [facility] 2024 9:15am Hypothyroidism chronic July 232024 9:15am Lymphedema chronic August 18, 2024 9:15am Morbid obesity with BMI of 45.0-49.9, adult chronic August 18, 2024 9:15am DOLORES (obstructive sleep apnea) chroni c August 18, 2024 9:15am Osteoarthritis chronic July 232024 9:15am Pulmonary hypertension chronic [facility] 2024 9:15am Type 2 diabetes mellitus chronic August 18, 2024 9:15am Venous insufficiency chronic [facility] 2024 9:15am ATKINS (dyspnea on exertion) chronic August 28, 2024 11:41am Essential hypertension chronic [facility] 2024 11:41am Hyperlipidemia chronic August 11:41am Palpitations chronic August 28, 2024 11:41am 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, limited to breakdown skin acute September 01, 2024 9:45am Venous stasis 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 acute September 01, 2024 9:45am Chronic hypoxemic respirator y failure chronic September 01, 2024 9:45am COPD (chronic obstructive pulmonary disease) chronic September 01 9:45am Debility chronic September 01 9:45am Edema of both lower extremities 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 Work Phone: 1(318) 927-584703-22-2024 Progress note Author Sneha Rosa [facility] September 10, 2023 1:07pm Note Date/Time September 10, 2023 12: 22pm [facility] [address] [place] [address] Progress Note - Wound Care 09/10/23 1219 MR#: [id number] Acct: [id number] Name: LIZ WADSWORTH Rep #:[id number] : 1950 73 From: Sneha Rosa DO PCP: Dr. Luis Cortés MD Status:R EG RCR Location: History of Present Illness Date of Service: 09/10/23 Chief Complaint: RLE wounds, bilateral lower extremity swelling History of Wound: Liz is a pleasant 73 yo woman that presents to the wound center for bilateral lower extremity edema and blisters of her right lower leg with recent cellulitis. She was seen in the ER on 06/20/23 and diagnosed with increased edema and possible cellulitis. She was treated with Keflex and Bumetanide. Her edema has improved some but is still present and she continues to have pain and drainage and blisters of her right lower leg. She does have compression stockings but it is difficult for her to wear when her legs are moreswollen and when they are painful. She tries to elevate her legs when she is sitting but is not always consistent with doing this. She has been wrapping her leg with gauze when it is seeping but otherwise has not been doing any regular dressings. Patient has been treated at the wound center in the past for similar wounds, most recently September 2022. She has also been seen in the vascular surgery clinic where she was evaluated her for BLE DVT and venous insufficiency. 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 GSV ablation has been considered if she continued to develop recurrenceof wounds. Last venous study was 03/2022. Last A1C 01/2023 was 6.4%. Last TSH - 01/2022 Patient's medical history is also significant for CHF, COPD, T2DM, lymphedema. She has a CPAP but has not been using this due to needing a new mask. She statesthat a prescription was to be sent and she never received the mask. Her current mask has a hole in it. She is also on oxygen but yesterday the concentrator is not working and she needs to call the company to come and check the device. She has pain and burning in her right leg that is worse at night. Subjective Subjective Liz returns for evaluation and treatment of bilateral lymphedema and ulcers ofR LE. She tolerated treatment with tubigrip compression. She has had increased pain in her right heal and edema is slightly worse in both legs but there have been no new ulcers or drainage from her legs. She saw vascular surgery and they are planning on a procedure to her right lower leg for venous insufficiency. Shehas not received pumps yet but the [employer] was out to demonstrate and measure her for lymphedema pumps and they are in the process of approving with her insurance. Objective Data Objective Data Vital Signs: Vital Signs Temp Pulse Resp BP O2 Del Method 97.6 F L 83 18 160/93 H Room Air 09/10/23 09:13 09/10/23 09:13 09/10/23 09:13 09/10/23 09:13 09/03/23 09:06 Oxygen Delivery Method Room Air Weight: 140.16 kg Body Mass Index (BMI) 49.8 Physical Exam Const alert, oriented x3 and no apparent distress General Appearance: cooperative and comfortable Nutritional Appearance: obese HEENT normocephalic and head/scalp atraumatic Lymph Lymphatic: lymphedema severe and pitting Lymphatic Narrative: bilateral lower legs with nodular appearance and skin thickening and hyperkeratinization from ankles to knees typical of chronic lymphedema Resp normal respiratory effort Effort and Inspection: able to speak in complete sentences Cardio regular rate and regular rhythm Extremity General Extremity: edema bilateral lower extremity Details: severe (with skin changes associated with lymphedema, thickened nodular appearance from mid allen to ankle) Skin General Skin Exam: erythema, venous stasis and dermatitis Wounds: wounds noted Wound Narrative: as in clinical panel Psych mental status grossly normal, thought process normal, cooperative and affect normal Debridement Note Debridement Note No debridement was completed: No debridement was completed today Post-Debridement Measurements and Additional Note: Post-Debridement Measurements/Treatment WC - Nurse 1 - General Ulcer Assessment Start: 08/20/23 08:33 Freq: Status: Active Protocol: WC.LOWEXT Activity Type Activity Date Activity User E-sign Co-sign Detail Recorded Client Recorded Date Recorded By Document 08/20/23 08:33 RB Desktop 08/20/23 08:44 RB Document 08/27/23 09:45 RB Desktop 08/27/23 09:48 RB Document 09/03/23 09:06 KW Desktop 09/03/23 09:12 KW Document 09/10/23 09:13 MT Desktop 09/10/23 09:14 MT 08/20/23 08/27/23 09/03/23 08:33 09:45 09:06 WC - Today's Visit Information Type of service Follow-up Visit Follow-up Visit Follow-up Visit (Physician/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 (Physician/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 (Physician/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 ) ) ) Arrival Mode Ambulatory Ambulatory Ambulatory Transfer Assistance None None Patient Identification Verified (Name & Yes Yes Yes ) Patient Requires Transmission-Based No No Precautions Height and Weight Body Mass Index (BMI) 49.8 49.8 49.8 BMI Classification Obese Obese Obese Vital Signs Temperature (97.8 F-99.1 F) 97 F L 97.1 F L 96.2 F L Temperature Source Temporal Temporal Temporal Pulse Rate (60-100) 87 75 93 Pulse Location Monitor Monitor Monitor Respiratory Rate (12-18) 18 18 18 Respiratory rate source Observation Observation Observation Oxygen Delivery Method Room Air Blood Pressure (90/60-120/80) 174/68 H 154/71 H 185/75 H Blood Pressure Mean (mm Hg) 103 98 111 Source Monitor Monitor Monitor Position Semi-Fowlers Semi-Fowlers Semi-Fowlers Blood Pressure Location Left Arm Left Arm Left Arm History Since Last Visit- (Skip if this is Patient's initial visit) Have you changed medications since your No No No last visit? Any new allergies or adverse reactions No No No Had a fall/change in ADL's that may No No No increase risk of falls Signs or symptoms of abuse and/or No No No neglect since last visit Have you been in the hospital since your No No No last visit? Has dressing in place as prescribed Yes Yes Yes Has compression in place as prescribed Yes Yes No Has offloadiing in place as prescribed No No N/A Experienced any changes in pain level or No No No management Left Footwear Regular Shoe Right Footwear Regular Shoe Pain Scale: 0-10 Numeric Is Patient Pain Free? Yes Yes Yes 09/10/23 09:13 WC - Today's Visit Information Type of service Follow-up Visit (Physician/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 ) Arrival Mode Ambulatory Transfer Assistance None Patient Identification Verified (Name & Yes ) Patient Requires Transmission-Based No Precautions Height and Weight Body Mass Index (BMI) 49.8 BMI Classification Obese Vital Signs Temperature (97.8 F-99.1 F) 97.6 F L Temperature Source Temporal Pulse Rate (60-100) 83 Pulse Location Monitor Respiratory Rate (12-18) 18 Respiratory rate source Observation Oxygen Delivery Method Blood Pressure (90/60-120/80) 160/93 H Blood Pressure Mean (mm Hg) 115 Source Monitor Position Semi-Fowlers Blood Pressure Location Left Arm History Since Last Visit- (Skip if this is Patient's initial visit) Have you changed medications since your No last visit? Any new allergies or adverse reactions No Had a fall/change in ADL's that may No increase risk of falls Signs or symptoms of abuse and/or No neglect since last visit Have you been in the hospital since your No last visit? Has dressing in place as prescribed Yes Has compression in place as prescribed Yes Has offloadiing in place as prescribed No Experienced any changes in pain level or No management Left Footwear Right Footwear Pain Scale: 0-10 Numeric Is Patient Pain Free? Yes - Nurse 1 - General Ulcer Measurement Start: 08/20/23 08:33 Freq: Status: Active Protocol: Activity Type Activity Date Activity User E-sign Co-sign Detail Recorded Client Recorded Date Recorded By Document 08/20/23 08:33 RB Desktop 08/20/23 08:44 RB Document 08/27/23 09:45 RB Desktop 08/27/23 09:48 RB Document 09/03/23 09:06 KW Desktop 09/03/23 09:12 KW Document 09/10/23 09:13 MT Desktop 09/10/23 09:14 MT 08/20/23 08/27/23 09/03/23 08:33 09:45 09:06 Wound Center Nurse 1 Lower Limb Edema Present Yes Yes Right Calf (cm) 58 60.5 57.5 Right Ankle (cm) 29.2 29.5 30.5 Left Calf (cm) 59 58.2 57 Left Ankle (cm) 28.5 29 30.5 09/10/23 09:13 Wound Center Nurse 1 Lower Limb Edema Present Yes Right Calf (cm) 51 Right Ankle (cm) 30 Left Calf (cm) 50.5 Left Ankle (cm) 30 WC - Nurse 2 - General Ulcer CM Notes Start: 08/20/23 08:33 Freq: Status: Active Protocol: Activity Type Activity Date Activity User E-sign Co-sign Detail Recorded Client Recorded Date Recorded By Document 09/03/23 09:25 GM Desktop 09/03/23 09:32 GM Document 09/10/23 09:32 GM Desktop 09/10/23 09:32 GM 09/03/23 09/10/23 09:25 09:32 Pain Scale: 0-10 Numeric Is Patient Pain Free? Yes Yes - Nurse 3 - General Ulcer D/C NN Start: 08/20/23 08:33 Freq: Status: Active Protocol: Activity Type Activity Date Activity User E-sign Co-sign Detail Recorded Client Recorded Date Recorded By Document 08/20/23 09:32 MT Desktop 08/20/23 09:34 MT Document 08/27/23 09:45 RB Desktop 08/27/23 09:48 RB Document 09/10/23 09:42 MT Desktop 09/10/23 09:43 MT 08/20/23 08/27/23 09/10/23 09:32 09:45 09:42 Wound Care Center Nurse 3 bilat LE -Multi-Layered Wrap Application Unna Boot - Bilateral ($) Right -Multi-Layered Wrap Application Unna Boot - Right ($) -Tubular Bandage Single Layer -Size of Tubigrip Used Size F -Size F ($) 1 Left -Multi-Layered Wrap Application Unna Boot - Left ($) -Tubular Bandage Single Layer -Size of Tubigrip Used Size F -Size F ($) 1 Treatment Response Procedure Procedure Tolerated Well Tolerated Well Vital Signs Temperature (97.8 F-99.1 F) 97.1 F L Temperature Source Temporal Pulse Rate (60-100) 75 Pulse Location Monitor Respiratory Rate (12-18) 18 Respiratory rate source Observation Blood Pressure (90/60-120/80) 154/71 H Blood Pressure Mean (mm Hg) 98 Source Monitor Position Semi-Fowlers Blood Pressure Location Left Arm Pain Scale: 0-10 Numeric Is Patient Pain Free? Yes Yes Yes Teaching: Wound Center Control Swelling with Leg Elevation -Person Taught Patient -Teaching Method Discussion, Demonstration -Response to teaching Verbalize understanding WC - Visit Discharge Discharge Condition Stable Stable Ambulatory Status Ambulatory Ambulatory Transportation Private Auto Private Auto Medication Reconcilliation completed & No No provided to patient/care provider Clinical Summary of Care Provided Yes Yes Notes: mp to L lateral LE Assessment/Plan Assessment/Plan (1) Debility: CODE(S): R53.81 - Other malaise (2) Osteoarthritis: CODE(S): M19.90 - Unspecified osteoarthritis, unspecified site QUALIFIERS: Osteoarthritis location: multiple joints Osteoarthritis type: primary Qualified Code(s): M15.9 - Polyosteoarthritis, unspecified (3) COPD (chronic obstructive pulmonary disease): CODE(S): J44.9 - Chronic obstructive pulmonary disease, unspecified QUALIFIERS: COPD type: unspecified COPD Qualified Code(s): J44.9 - Chronic obstructive pulmonary disease, unspecified (4) Edema of both lower extremities: CODE(S): R60.0 - Localized edema (5) Venous insufficiency: CODE(S): I87.2 - Venous insufficiency (chronic) (peripheral) (6) Chronic hypoxemic respiratory failure: CODE(S): J96.11 - Chronic respiratory failure with hypoxia (7) Pulmonary hypertension: CODE(S): I27.20 - Pulmonary hypertension, unspecified (8) Morbid obesity with BMI of 45.0-49.9, adult: CODE(S): E66.01 - Morbid (severe) obesity due to excess calories; Z68.42 -Body mass index [BMI] 45.0-49.9, adult (9) Lymphedema: CODE(S): I89.0 - Lymphedema, not elsewhere classified (10) Hypothyroidism: CODE(S): E03.9 - Hypothyroidism, unspecified QUALIFIERS: Hypothyroidism type: unspecified Qualified Code(s): E03.9 - Hypothyroidism, unspecified (11) Type 2 diabetes mellitus: CODE(S): E11.9 - Type 2 diabetes mellitus without complications QUALIFIERS: Diabetes mellitus oil heaterman insulin use: without oil heaterman use Diabetes mellitus complication status: with other specified complication Qualified Code(s): E11.69 - Type 2 diabetes mellitus with other specified complication (12) DOLORES (obstructive sleep apnea): CODE(S): G47.33 - Obstructive sleep apnea (adult) (pediatric) (13) Venous ulcer of right lower extremity without varicose veins: CODE(S): I87.2 - Venous insufficiency (chronic) (peripheral); L97.919 - Non- pressure chronic ulcer of unspecified part of right lower leg with unspecified severity PLAN: Plan Evaluation and examination performed today in clinic as annotated above. At home wound-care instructions: Will continue having her use tubigrip moderate compression daily and begin use of lymphedema pumps 3 times/day once they are received. Compression: Liz has significant arthritis and is unable to don compression stockings on her own and has had several recurrences of ulcers and cellulitis over the last 18 months even with using graduated compression regularly. Due to her chronic lymphedema and recurrent ulcers it is medically necessary for her to undergo treatment with lymphedema pumps in order to prevent recurrent ulcers and cellulitis and prevent limb loss. She has failed conservative treatments with KATELYNN wraps and compression garments. She would be able to don lymphedema garments and operate the lymphedema pumps 3 times/day. She is waiting to receive lymphedema pumps and would benefit from treatment. Off-loading: The patient was instructed to avoid pressure and friction on the affected areas. Reposition every 2 hours at minimum. Avoid prolonged standing and/or dangling of legs. When seated, feet should be elevated at chest level. Frequent ambulation is encouraged. Diet: Patient encouraged to increase protein intake while taking caution to avoid high carbohydrate and/or sugar intake. Encouraged weight loss. 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 Prealbumin 17.8. Advised addition of protein supplement. She saw vascular on 09/01/23 and they recommended venous procedure to treat venous insufficiency. Encouraged her to schedule follow up appointment with her PCP to discuss incontinence and diuretic management. Will contact [facility] in [place] to assist her in determining steps needed to get her a CPAP mask to improve DOLORES and pulmonary HTN treatment compliance which is adding to her decompensated lymphedema. Follow-up: Return in 1 week for wound care follow up. Return sooner or report to the emergency room should symptoms worsen, or new symptoms arise. Note: webtide speech recognition train control electronic technician software was used to create portions of this document. Sound-alike and misspelled words, as well as other train control electronic technician errors may be contained in the documentation. 09/10/23 1307 <Electronically signed by Sneha Rosa DO> Cosigner Signature (if applicable): CC: ~ Signed [facility] Work Phone: 1(455) 965-227303-15-2024 Progress note Author Sneha Rosa [facility] September 03, 2023 2:35pm Note Date/Time September 03, 2023 2:3 5pm [facility] [address] [place] [address] Progress Note - Wound Care 09/03/23 1430 MR#: [id number] Acct: [id number] Name: LIZ WADSWORTH Rep #:[id number] : 1950 73 From: Sneha Rosa DO PCP: Dr. Luis Cortés MD Status:R EG RCR Location: History of Present Illness Date of Service: 09/03/23 Chief Complaint: RLE wounds, bilateral lower extremity swelling History of Wound: Liz is a pleasant 73 yo woman that presents to the wound center for bilateral lower extremity edema and blisters of her right lower leg with recent cellulitis. She was seen in the ER on 06/20/23 and diagnosed with increased edema and possible cellulitis. She was treated with Keflex and Bumetanide. Her edema has improved some but is still present and she continues to have pain and drainage and blisters of her right lower leg. She does have compression stockings but it is difficult for her to wear when her legs are moreswollen and when they are painful. She tries to elevate her legs when she is sitting but is not always consistent with doing this. She has been wrapping her leg with gauze when it is seeping but otherwise has not been doing any regular dressings. Patient has been treated at the wound center in the past for similar wounds, most recently September 2022. She has also been seen in the vascular surgery clinic where she was evaluated her for BLE DVT and venous insufficiency. 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 GSV ablation has been considered if she continued to develop recurrenceof wounds. Last venous study was 03/2022. Last A1C 01/2023 was 6.4%. Last TSH - 01/2022 Patient's medical history is also significant for CHF, COPD, T2DM, lymphedema. She has a CPAP but has not been using this due to needing a new mask. She statesthat a prescription was to be sent and she never received the mask. Her current mask has a hole in it. She is also on oxygen but yesterday the concentrator is not working and she needs to call the company to come and check the device. She has pain and burning in her right leg that is worse at night. Subjective Subjective Liz returns for evaluation and treatment of bilateral lymphedema and ulcers ofR LE. She tolerated treatment with UNNA boots with improvement in edema and ulcers are healed. Decreased pain. She saw vascular surgery and they are planning on a procedure to her right lower leg for venous insufficiency. She hasnot received pumps yet but the [employer] was out to demonstrate and measure her for lymphedema pumps. Objective Data Objective Data Vital Signs: Vital Signs Temp Pulse Resp BP O2 Del Method 96.2 F L 93 18 185/75 H Room Air 09/03/23 09:06 09/03/23 09:06 09/03/23 09:06 09/03/23 09:06 09/03/23 09:06 Oxygen Delivery Method Room Air Weight: 140.16 kg Body Mass Index (BMI) 49.8 Physical Exam Const alert, oriented x3 and no apparent distress General Appearance: cooperative and comfortable Nutritional Appearance: obese HEENT normocephalic and head/scalp atraumatic Lymph Lymphatic: lymphedema severe and pitting Lymphatic Narrative: bilateral lower legs with nodular appearance and skin thickening and hyperkeratinization from ankles to knees typical of chronic lymphedema Resp normal respiratory effort Effort and Inspection: able to speak in complete sentences Cardio regular rate and regular rhythm Extremity General Extremity: edema bilateral lower extremity Details: severe (with skin changes associated with lymphedema, thickened nodular appearance from mid allen to ankle) Skin General Skin Exam: erythema, venous stasis and dermatitis Wounds: wounds noted Wound Narrative: as in clinical panel Psych mental status grossly normal, thought process normal, cooperative and affect normal Debridement Note Debridement Note No debridement was completed: No debridement was completed today Post-Debridement Measurements and Additional Note: Post-Debridement Measurements/Treatment WC - Nurse 1 - General Ulcer Assessment Start: 08/20/23 08:33 Freq: Status: Active Protocol: WC.LOWEXT Activity Type Activity Date Activity User E-sign Co-sign Detail Recorded Client Recorded Date Recorded By Document 08/20/23 08:33 RB Desktop 08/20/23 08:44 RB Document 08/27/23 09:45 RB Desktop 08/27/23 09:48 RB Document 09/03/23 09:06 KW Desktop 09/03/23 09:12 KW 08/20/23 08/27/23 09/03/23 08:33 09:45 09:06 WC - Today's Visit Information Type of service Follow-up Visit Follow-up Visit Follow-up Visit (Physician/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 (Physician/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 (Physician/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 ) ) ) Arrival Mode Ambulatory Ambulatory Ambulatory Transfer Assistance None None Patient Identification Verified (Name & Yes Yes Yes ) Patient Requires Transmission-Based No No Precautions Height and Weight Body Mass Index (BMI) 49.8 49.8 49.8 BMI Classification Obese Obese Obese Vital Signs Temperature (97.8 F-99.1 F) 97 F L 97.1 F L 96.2 F L Temperature Source Temporal Temporal Temporal Pulse Rate (60-100) 87 75 93 Pulse Location Monitor Monitor Monitor Respiratory Rate (12-18) 18 18 18 Respiratory rate source Observation Observation Observation Oxygen Delivery Method Room Air Blood Pressure (90/60-120/80) 174/68 H 154/71 H 185/75 H Blood Pressure Mean (mm Hg) 103 98 111 Source Monitor Monitor Monitor Position Semi-Fowlers Semi-Fowlers Semi-Fowlers Blood Pressure Location Left Arm Left Arm Left Arm History Since Last Visit- (Skip if this is Patient's initial visit) Have you changed medications since your No No No last visit? Any new allergies or adverse reactions No No No Had a fall/change in ADL's that may No No No increase risk of falls Signs or symptoms of abuse and/or No No No neglect since last visit Have you been in the hospital since your No No No last visit? Has dressing in place as prescribed Yes Yes Yes Has compression in place as prescribed Yes Yes No Has offloadiing in place as prescribed No No N/A Experienced any changes in pain level or No No No management Left Footwear Regular Shoe Right Footwear Regular Shoe Pain Scale: 0-10 Numeric Is Patient Pain Free? Yes Yes Yes WC - Nurse 1 - General Ulcer Measurement Start: 08/20/23 08:33 Freq: Status: Active Protocol: Activity Type Activity Date Activity User E-sign Co-sign Detail Recorded Client Recorded Date Recorded By Document 08/20/23 08:33 RB Desktop 08/20/23 08:44 RB Document 08/27/23 09:45 RB Desktop 08/27/23 09:48 RB Document 09/03/23 09:06 KW Desktop 09/03/23 09:12 KW 08/20/23 08/27/23 09/03/23 08:33 09:45 09:06 Wound Center Nurse 1 Lower Limb Edema Present Yes Yes Right Calf (cm) 58 60.5 57.5 Right Ankle (cm) 29.2 29.5 30.5 Left Calf (cm) 59 58.2 57 Left Ankle (cm) 28.5 29 30.5 WC - Nurse 2 - General Ulcer CM Notes Start: 08/20/23 08:33 Freq: Status: Active Protocol: Activity Type Activity Date Activity User E-sign Co-sign Detail Recorded Client Recorded Date Recorded By Document 09/03/23 09:25 GM Desktop 09/03/23 09:32 GM 09/03/23 09:25 Pain Scale: 0-10 Numeric Is Patient Pain Free? Yes WC - Nurse 3 - General Ulcer D/C NN Start: 08/20/23 08:33 Freq: Status: Active Protocol: Activity Type Activity Date Activity User E-sign Co-sign Detail Recorded Client Recorded Date Recorded By Document 08/20/23 09:32 MT Desktop 08/20/23 09:34 MT Document 08/27/23 09:45 RB Desktop 08/27/23 09:48 RB 08/20/23 08/27/23 09:32 09:45 Wound Care Center Nurse 3 bilat LE -Multi-Layered Wrap Application Unna Boot - Bilateral ($) Right -Multi-Layered Wrap Application Unna Boot - Right ($) Left -Multi-Layered Wrap Application Unna Boot - Left ($) Treatment Response Procedure Tolerated Well Vital Signs Temperature (97.8 F-99.1 F) 97.1 F L Temperature Source Temporal Pulse Rate (60-100) 75 Pulse Location Monitor Respiratory Rate (12-18) 18 Respiratory rate source Observation Blood Pressure (90/60-120/80) 154/71 H Blood Pressure Mean (mm Hg) 98 Source Monitor Position Semi-Fowlers Blood Pressure Location Left Arm Pain Scale: 0-10 Numeric Is Patient Pain Free? Yes Yes WC - Visit Discharge Discharge Condition Stable Ambulatory Status Ambulatory Transportation Private Auto Medication Reconcilliation completed & No provided to patient/care provider Clinical Summary of Care Provided Yes Notes: mp to L lateral LE Assessment/Plan Assessment/Plan (1) Debility: CODE(S): R53.81 - Other malaise (2) Osteoarthritis: CODE(S): M19.90 - Unspecified osteoarthritis, unspecified site QUALIFIERS: Osteoarthritis location: multiple joints Osteoarthritis type: primary Qualified Code(s): M15.9 - Polyosteoarthritis, unspecified (3) COPD (chronic obstructive pulmonary disease): CODE(S): J44.9 - Chronic obstructive pulmonary disease, unspecified QUALIFIERS: COPD type: unspecified COPD Qualified Code(s): J44.9 - Chronic obstructive pulmonary disease, unspecified (4) Edema of both lower extremities: CODE(S): R60.0 - Localized edema (5) Venous insufficiency: CODE(S): I87.2 - Venous insufficiency (chronic) (peripheral) (6) Chronic hypoxemic respiratory failure: CODE(S): J96.11 - Chronic respiratory failure with hypoxia (7) Pulmonary hypertension: CODE(S): I27.20 - Pulmonary hypertension, unspecified (8) Morbid obesity with BMI of 45.0-49.9, adult: CODE(S): E66.01 - Morbid (severe) obesity due to excess calories; Z68.42 -Body mass index [BMI] 45.0-49.9, adult (9) Lymphedema: CODE(S): I89.0 - Lymphedema, not elsewhere classified (10) Hypothyroidism: CODE(S): E03.9 - Hypothyroidism, unspecified QUALIFIERS: Hypothyroidism type: unspecified Qualified Code(s): E03.9 - Hypothyroidism, unspecified (11) Type 2 diabetes mellitus: CODE(S): E11.9 - Type 2 diabetes mellitus without complications QUALIFIERS: Diabetes mellitus residential insulin use: without oil heaterman use Diabetes mellitus complication status: with other specified complication Qualified Code(s): E11.69 - Type 2 diabetes mellitus with other specified complication (12) DOLORES (obstructive sleep apnea): CODE(S): G47.33 - Obstructive sleep apnea (adult) (pediatric) (13) Venous ulcer of right lower extremity without varicose veins: CODE(S): I87.2 - Venous insufficiency (chronic) (peripheral); L97.919 - Non- pressure chronic ulcer of unspecified part of right lower leg with unspecified severity PLAN: Plan Evaluation and examination performed today in clinic as annotated above. At home wound-care instructions: Will try having her use tubigrip moderate compression daily. Compression: Liz has significant arthritis and is unable to don compression stockings on her own and has had several recurrences of ulcers and cellulitis over the last 18 months even with using graduated compression regularly. Due to her chronic lymphedema and recurrent ulcers it is medically necessary for her to undergo treatment with lymphedema pumps in order to prevent recurrent ulcers and cellulitis and prevent limb loss. She has failed conservative treatments with KATELYNN wraps and compression garments. She would be able to don lymphedema garments and operate the lymphedema pumps 3 times/day. She is waiting to receive lymphedema pumps and would benefit from treatment. Off-loading: The patient was instructed to avoid pressure and friction on the affected areas. Reposition every 2 hours at minimum. Avoid prolonged standing and/or dangling of legs. When seated, feet should be elevated at chest level. Frequent ambulation is encouraged. Diet: Patient encouraged to increase protein intake while taking caution to avoid high carbohydrate and/or sugar intake. Encouraged weight loss. 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 Prealbumin 17.8. Advised addition of protein supplement. She saw vascular on 09/01/23 and they recommended venous procedure to treat venous insufficiency. Encouraged her to schedule follow up appointment with her PCP to discuss incontinence and diuretic management. Will contact [facility] in [place] to assist her in determining steps needed to get her a CPAP mask to improve DOLORES and pulmonary HTN treatment compliance which is adding to her decompensated lymphedema. Follow-up: Return in 1 week for wound care follow up. Return sooner or report to the emergency room should symptoms worsen, or new symptoms arise. Note: webtide speech recognition train control electronic technician software was used to create portions of this document. Sound-alike and misspelled words, as well as other train control electronic technician errors may be contained in the documentation. 09/03/23 1435 <Electronically signed by Sneha Rosa DO> Cosigner Signature (if applicable): CC: ~ Signed [facility] Work Phone: [phone] 974-415203-01-2024 Progress note Author Sneha Rosa [facility] August 20, 2023 1:14pm Note Date/Time August 20, 2023 1:14 pm [facility] [address] [place] [address] Progress Note - Wound Care 08/20/23 1312 MR#: [id number] Acct: [id number] Name: LIZ WADSWORTH Rep #:[id number] : 1950 73 From: Sneha Rosa DO PCP: Dr. Luis Cortés MD Status:R EG RCR Location: History of Present Illness Date of Service: 08/20/23 Chief Complaint: RLE wounds, bilateral lower extremity swelling History of Wound: Liz is a pleasant 73 yo woman that presents to the wound center for bilateral lower extremity edema and blisters of her right lower leg with recent cellulitis. She was seen in the ER on 06/20/23 and diagnosed with increased edema and possible cellulitis. She was treated with Keflex and Bumetanide. Her edema has improved some but is still present and she continues to have pain and drainage and blisters of her right lower leg. She does have compression stockings but it is difficult for her to wear when her legs are moreswollen and when they are painful. She tries to elevate her legs when she is sitting but is not always consistent with doing this. She has been wrapping her leg with gauze when it is seeping but otherwise has not been doing any regular dressings. Patient has been treated at the wound center in the past for similar wounds, most recently September 2022. She has also been seen in the vascular surgery clinic where she was evaluated her for BLE DVT and venous insufficiency. 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 GSV ablation has been considered if she continued to develop recurrenceof wounds. Last venous study was 03/2022. Last A1C 01/2023 was 6.4%. Last TSH - 01/2022 Patient's medical history is also significant for CHF, COPD, T2DM, lymphedema. She has a CPAP but has not been using this due to needing a new mask. She statesthat a prescription was to be sent and she never received the mask. Her current mask has a hole in it. She is also on oxygen but yesterday the concentrator is not working and she needs to call the company to come and check the device. She reports chills but no fever. She has pain and burning in her right leg that is worse at night. Subjective Subjective Liz returns for evaluation and treatment of bilateral lymphedema and ulcers ofR LE. She tolerated treatment with UNNA boots with improvement in edema and ulcers are healed. Decreased pain. Objective Data Objective Data Vital Signs: Vital Signs Temp Pulse Resp BP 97 F L 87 18 174/68 H 08/20/23 08:33 08/20/23 08:33 08/20/23 08:33 08/20/23 08:33 Weight: 140.16 kg Body Mass Index (BMI) 49.8 Physical Exam Const alert, oriented x3 and no apparent distress General Appearance: cooperative and comfortable Nutritional Appearance: obese HEENT normocephalic and head/scalp atraumatic Lymph Lymphatic: lymphedema severe and pitting Resp normal respiratory effort Effort and Inspection: able to speak in complete sentences Cardio regular rate and regular rhythm Extremity General Extremity: edema bilateral lower extremity Details: severe (with skin changes associated with lymphedema, thickened nodular appearance from mid allen to ankle) Skin General Skin Exam: erythema, venous stasis and dermatitis Wounds: wounds noted Wound Narrative: as in clinical panel Psych mental status grossly normal, thought process normal, cooperative and affect normal Debridement Note Debridement Note No debridement was completed: No debridement was completed today Post-Debridement Measurements and Additional Note: Post-Debridement Measurements/Treatment JESÚS - Nurse 1 - General Ulcer Assessment Start: 08/20/23 08:33 Freq: Status: Active Protocol: KELSEY Activity Type Activity Date Activity User E-sign Co-sign Detail Recorded Client Recorded Date Recorded By Document 08/20/23 08:33 RB Desktop 08/20/23 08:44 RB 08/20/23 08:33 - Today's Visit Information Type of service Follow-up Visit (Physician/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 ) Arrival Mode Ambulatory Transfer Assistance None Patient Identification Verified (Name & Yes ) Patient Requires Transmission-Based No Precautions Height and Weight Body Mass Index (BMI) 49.8 BMI Classification Obese Vital Signs Temperature (97.8 F-99.1 F) 97 F L Temperature Source Temporal Pulse Rate (60-100) 87 Pulse Location Monitor Respiratory Rate (12-18) 18 Respiratory rate source Observation Blood Pressure (90/60-120/80) 174/68 H Blood Pressure Mean (mm Hg) 103 Source Monitor Position Semi-Fowlers Blood Pressure Location Left Arm History Since Last Visit- (Skip if this is Patient's initial visit) Have you changed medications since your No last visit? Any new allergies or adverse reactions No Had a fall/change in ADL's that may No increase risk of falls Signs or symptoms of abuse and/or No neglect since last visit Have you been in the hospital since your No last visit? Has dressing in place as prescribed Yes Has compression in place as prescribed Yes Has offloadiing in place as prescribed No Experienced any changes in pain level or No management Pain Scale: 0-10 Numeric Is Patient Pain Free? Yes - Nurse 1 - General Ulcer Measurement Start: 08/20/23 08:33 Freq: Status: Active Protocol: Activity Type Activity Date Activity User E-sign Co-sign Detail Recorded Client Recorded Date Recorded By Document 08/20/23 08:33 RB Desktop 08/20/23 08:44 RB 08/20/23 08:33 Wound Center Nurse 1 Lower Limb Edema Present Yes Right Calf (cm) 58 Right Ankle (cm) 29.2 Left Calf (cm) 59 Left Ankle (cm) 28.5 - Nurse 3 - General Ulcer D/C NN Start: 08/20/23 08:33 Freq: Status: Active Protocol: Activity Type Activity Date Activity User E-sign Co-sign Detail Recorded Client Recorded Date Recorded By Document 08/20/23 09:32 MT Desktop 08/20/23 09:34 MT 08/20/23 09:32 Wound Care Center Nurse 3 Right -Multi-Layered Wrap Application Unna Boot - Right ($) Left -Multi-Layered Wrap Application Unna Boot - Left ($) Pain Scale: 0-10 Numeric Is Patient Pain Free? Yes Assessment/Plan Assessment/Plan (1) Debility: CODE(S): R53.81 - Other malaise (2) Osteoarthritis: CODE(S): M19.90 - Unspecified osteoarthritis, unspecified site QUALIFIERS: Osteoarthritis location: multiple joints Osteoarthritis type: primary Qualified Code(s): M15.9 - Polyosteoarthritis, unspecified (3) COPD (chronic obstructive pulmonary disease): CODE(S): J44.9 - Chronic obstructive pulmonary disease, unspecified QUALIFIERS: COPD type: unspecified COPD Qualified Code(s): J44.9 - Chronic obstructive pulmonary disease, unspecified (4) Edema of both lower extremities: CODE(S): R60.0 - Localized edema (5) Venous insufficiency: CODE(S): I87.2 - Venous insufficiency (chronic) (peripheral) (6) Chronic hypoxemic respiratory failure: CODE(S): J96.11 - Chronic respiratory failure with hypoxia (7) Pulmonary hypertension: CODE(S): I27.20 - Pulmonary hypertension, unspecified (8) Morbid obesity with BMI of 45.0-49.9, adult: CODE(S): E66.01 - Morbid (severe) obesity due to excess calories; Z68.42 -Body mass index [BMI] 45.0-49.9, adult (9) Lymphedema: CODE(S): I89.0 - Lymphedema, not elsewhere classified (10) Hypothyroidism: CODE(S): E03.9 - Hypothyroidism, unspecified QUALIFIERS: Hypothyroidism type: unspecified Qualified Code(s): E03.9 - Hypothyroidism, unspecified (11) Type 2 diabetes mellitus: CODE(S): E11.9 - Type 2 diabetes mellitus without complications QUALIFIERS: Diabetes mellitus oil heaterman insulin use: without residential use Diabetes mellitus complication status: with other specified complication Qualified Code(s): E11.69 - Type 2 diabetes mellitus with other specified complication (12) DOLORES (obstructive sleep apnea): CODE(S): G47.33 - Obstructive sleep apnea (adult) (pediatric) (13) Venous ulcer of right lower extremity without varicose veins: CODE(S): I87.2 - Venous insufficiency (chronic) (peripheral); L97.919 - Non- pressure chronic ulcer of unspecified part of right lower leg with unspecified severity PLAN: Plan Evaluation and examination performed today in clinic as annotated above. At home wound-care instructions: Will continue using UNNA boots to bilateral LE. She tolerated them well. She was instructed to keep dressings clean and dry. Use a cast cover or sponge bath to avoid getting dressings wet. Compression: Liz has significant arthritis and is unable to don compression stockings on her own and has had several recurrences of ulcers and cellulitis over the last 18 months even with using graduated compression regularly. Due to her chronic lymphedema and recurrent ulcers it is medically necessary for her to undergo treatment with lymphedema pumps in order to prevent recurrent ulcers and cellulitis and prevent limb loss. She has failed conservative treatments with KATELYNN wraps and compression garments. She would be able to don lymphedema garments and operate the lymphedema pumps 3 times/day. She is scheduled to receive pumps on Wednesday08/24/23. Off-loading: The patient was instructed to avoid pressure and friction on the affected areas. Reposition every 2 hours at minimum. Avoid prolonged standing and/or dangling of legs. When seated, feet should be elevated at chest level. Frequent ambulation is encouraged. Diet: Patient encouraged to increase protein intake while taking caution to avoid high carbohydrate and/or sugar intake. Encouraged weight loss. 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 Prealbumin 17.8. Advised addition of protein supplement. She is scheduled for vascular referral for 09/01/23. Encouraged her to schedule follow up appointment with her PCP to discuss incontinence and diuretic management. Will contact [facility] in [place] to assist her in determining steps needed to get her a CPAP mask to improve DOLORES and pulmonary HTN treatment compliance which is adding to her decompensated lymphedema. Follow-up: Return in 1 week for wound care follow up. Return sooner or report to the emergency room should symptoms worsen, or new symptoms arise. Note: webtide speech recognition train control electronic technician software was used to create portions of this document. Sound-alike and misspelled words, as well as other train control electronic technician errors may be contained in the documentation. 08/20/23 1314 <Electronically signed by Sneha Rosa DO> Cosigner Signature (if applicable): CC: ~ Signed [facility] Work Phone: [phone] [phone] Progress note Author Sneha Rosa [facility] August 13, 2023 1:23pm Note Date/Time August 13, 2023 1:22pm [facility] [address] [place] [address] Progress Note - Wound Care 08/13/23 1320 MR#: [id number] Acct: [id number] Name: LIZ WADSWORTH Rep #:[id number] : 1950 73 From: Sneha Rosa DO PCP: Dr. Luis Cortés MD Status:R EG RCR Location: WC History of Present Illness Date of Service: 08/13/23 Chief Complaint: RLE wounds, bilateral lower extremity swelling History of Wound: Liz is a pleasant 73 yo woman that presents to the wound center for bilateral lower extremity edema and blisters of her right lower leg with recent cellulitis. She was seen in the ER on 06/20/23 and diagnosed with increased edema and possible cellulitis. She was treated with Keflex and Bumetanide. Her edema has improved some but is still present and she continues to have pain and drainage and blisters of her right lower leg. She does have compression stockings but it is difficult for her to wear when her legs are moreswollen and when they are painful. She tries to elevate her legs when she is sitting but is not always consistent with doing this. She has been wrapping her leg with gauze when it is seeping but otherwise has not been doing any regular dressings. Patient has been treated at the wound center in the past for similar wounds, most recently September 2022. She has also been seen in the vascular surgery clinic where she was evaluated her for BLE DVT and venous insufficiency. 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 GSV ablation has been considered if she continued to develop recurrenceof wounds. Last venous study was 03/2022. Last A1C 01/2023 was 6.4%. Last TSH - 01/2022 Patient's medical history is also significant for CHF, COPD, T2DM, lymphedema. She has a CPAP but has not been using this due to needing a new mask. She statesthat a prescription was to be sent and she never received the mask. Her current mask has a hole in it. She is also on oxygen but yesterday the concentrator is not working and she needs to call the company to come and check the device. She reports chills but no fever. She has pain and burning in her right leg that is worse at night. Subjective Subjective Liz returns for evaluation and treatment of bilateral lymphedema and ulcers ofR LE. She tolerated treatment with UNNA boots with improvement in edema and ulcers are healed. Decreased pain. Objective Data Objective Data Vital Signs: Vital Signs Temp Pulse Resp BP O2 Del Method 97.3 F L 68 18 170/78 H Room Air 08/13/23 09:16 08/13/23 09:16 08/13/23 09:16 08/13/23 09:16 08/13/23 09:16 Oxygen Delivery Method Room Air Weight: 140.16 kg Body Mass Index (BMI) 49.8 Physical Exam Const alert, oriented x3 and no apparent distress General Appearance: cooperative and comfortable Nutritional Appearance: obese HEENT normocephalic and head/scalp atraumatic Lymph Lymphatic: lymphedema severe and pitting Resp normal respiratory effort Effort and Inspection: able to speak in complete sentences Cardio regular rate and regular rhythm Extremity General Extremity: edema bilateral lower extremity Details: severe (with skin changes associated with lymphedema, thickened nodular appearance from mid allen to ankle) Skin General Skin Exam: erythema, venous stasis and dermatitis Wounds: wounds noted Wound Narrative: as in clinical panel Psych mental status grossly normal, thought process normal, cooperative and affect normal Debridement Note Debridement Note No debridement was completed: No debridement was completed today Post-Debridement Measurements and Additional Note: Post-Debridement Measurements/Treatment - Nurse 1 - General Ulcer Assessment Start: 07/23/23 09:03 Freq: Status: Active Protocol: [email or web address] Activity Type Activity Date Activity User E-sign Co-sign Detail Recorded Client Recorded Date Recorded By Document 07/23/23 09:03 KW Desktop 07/23/23 09:16 KW Document 07/30/23 09:43 RB Desktop 07/30/23 09:46 RB Document 08/06/23 08:59 KW Desktop 08/06/23 09:04 KW Document 08/13/23 09:16 KW Desktop 08/13/23 09:29 KW 07/23/23 07/30/23 08/06/23 09:03 09:43 08:59 - Today's Visit Information Type of service Initial Visit Follow-up Visit Follow-up Visit (Physician/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 (Physician/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 ) ) Arrival Mode Ambulatory Ambulatory Ambulatory Transfer Assistance None Accompanied by Patient Identification Verified (Name & Yes Yes Yes ) Patient Requires Transmission-Based No Precautions Height and Weight Height 5 ft 6 in Weight 140.16 kg Weight in Pounds 309.0 lbs Body Mass Index (BMI) 49.8 49.8 49.8 BMI Classification Obese Obese Obese BSA - Marie 2.41 Vital Signs Temperature (97.8 F-99.1 F) 98.9 F 97 F L 97.2 F L Temperature Source Temporal Temporal Temporal Pulse Rate (60-100) 86 80 74 Pulse Location Monitor Monitor Monitor Respiratory Rate (12-18) 18 18 18 Respiratory rate source Observation Observation Observation Oxygen Delivery Method Room Air Room Air Blood Pressure (90/60-120/80) 134/71 H 180/56 H 161/64 H Blood Pressure Mean (mm Hg) 92 97 96 Source Monitor Monitor Monitor Position Semi-Fowlers Semi-Fowlers Semi-Fowlers Blood Pressure Location Left Arm Left Arm Right Arm History Since Last Visit- (Skip if this is Patient's initial visit) Have you changed medications since your No No last visit? Any new allergies or adverse reactions No No Had a fall/change in ADL's that may No No increase risk of falls Signs or symptoms of abuse and/or No No neglect since last visit Have you been in the hospital since your No No last visit? Has dressing in place as prescribed Yes Yes Has compression in place as prescribed Yes Yes Has offloadiing in place as prescribed No N/A Experienced any changes in pain level or No No management Left Footwear Regular Shoe Regular Shoe Right Footwear Regular Shoe Regular Shoe Pain Scale: 0-10 Numeric Is Patient Pain Free? Yes Yes Yes Lower Extremity Assessment/ Foot Assessment/ Toe Nail Assessment Right -Hair Growth on Legs No -Hair Growth on Toes No -Thick Yes -Discolored Yes Left -Hair Growth on Legs No -Hair Growth on Toes No -Thick Yes -Discolored Yes Neuropathy Assessment Feet - Top Side and Bottom <Entered> (a) Communication Assessment Preferred language Taiwanese Able to Read Yes Able to Write Yes Communication Tools None Caregiver Communication Skills No Impairment Impairment Right Hearing Abillity Normal Left Hearing Abillity Normal Visual Assistive Devices Glasses Teaching Assessment Preferences Verbal,Written, Demonstration Barriers to Learning None Readiness To Learn Excellent Willingness to Engage in Self Management High Activies Readiness to Engage in Self Management High Activities Anxiety Level Calm Cooperation Cooperative Perception Coherent Interest in Health Problem Asks Questions Education Importance Acknowledges Need Does Patient Smoke tobacco or other No substances Smoking Status Never smoker Is Patient Diabetic No Functional Assessment Recent Decline in Ability to Perform Denies Any Declines Assistive Device With Patient No Culture/Jew/Uncrater Cultural/Jew Needs that may affect No Treatment Plan Would you allow our hospital hand baseball sewer to No meet you for the purpose of spiritual/ emotional support? Uncrater to contact place of alevism No 08/13/23 09:16 WC - Today's Visit Information Type of service Follow-up Visit (Physician/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 ) Arrival Mode Transfer Assistance Accompanied by Patient Identification Verified (Name & Yes ) Patient Requires Transmission-Based Precautions Height and Weight Height Weight Weight in Pounds Body Mass Index (BMI) 49.8 BMI Classification Obese BSA - Marie Vital Signs Temperature (97.8 F-99.1 F) 97.3 F L Temperature Source Temporal Pulse Rate (60-100) 68 Pulse Location Monitor Respiratory Rate (12-18) 18 Respiratory rate source Observation Oxygen Delivery Method Room Air Blood Pressure (90/60-120/80) 170/78 H Blood Pressure Mean (mm Hg) 108 Source Monitor Position Sitting Blood Pressure Location Left Forearm History Since Last Visit- (Skip if this is Patient's initial visit) Have you changed medications since your No last visit? Any new allergies or adverse reactions No Had a fall/change in ADL's that may No increase risk of falls Signs or symptoms of abuse and/or No neglect since last visit Have you been in the hospital since your No last visit? Has dressing in place as prescribed Yes Has compression in place as prescribed Yes Has offloadiing in place as prescribed N/A Experienced any changes in pain level or No management Left Footwear Regular Shoe Right Footwear Regular Shoe Pain Scale: 0-10 Numeric Is Patient Pain Free? Yes Lower Extremity Assessment/ Foot Assessment/ Toe Nail Assessment Right -Hair Growth on Legs -Hair Growth on Toes -Thick -Discolored Left -Hair Growth on Legs -Hair Growth on Toes -Thick -Discolored Neuropathy Assessment Feet - Top Side and Bottom Communication Assessment Preferred language Able to Read Able to Write Communication Tools Caregiver Communication Skills Impairment Right Hearing Abillity Left Hearing Abillity Visual Assistive Devices Teaching Assessment Preferences Barriers to Learning Readiness To Learn Willingness to Engage in Self Management Activies Readiness to Engage in Self Management Activities Anxiety Level Cooperation Perception Interest in Health Problem Education Importance Does Patient Smoke tobacco or other substances Smoking Status Is Patient Diabetic Functional Assessment Recent Decline in Ability to Perform Assistive Device With Patient Culture/Jew/Uncrater Cultural/Jew Needs that may affect Treatment Plan Would you allow our hospital hand baseball sewer to meet you for the purpose of spiritual/ emotional support? Uncrater to contact place of alevism (a) 1 - + WC - Nurse 1 - General Ulcer Measurement Start: 07/23/23 09:03 Freq: Status: Active Protocol: Activity Type Activity Date Activity User E-sign Co-sign Detail Recorded Client Recorded Date Recorded By Document 07/23/23 09:03 KW Desktop 07/23/23 09:16 KW Document 07/30/23 09:43 RB Desktop 07/30/23 09:46 RB Document 08/06/23 08:59 KW Desktop 08/06/23 09:04 KW Document 08/13/23 09:16 KW Desktop 08/13/23 09:29 KW 07/23/23 07/30/23 08/06/23 09:03 09:43 08:59 Wound Center Nurse 1 Left Lateral lower leg -Current Size (cm) - Length -Current Size (cm) - Width -Current Size (cm) - Depth -Total Square Cm -Ulcer Cleansing #5 RLE edema -Current Size (cm) - Length 0.1 0.1 -Current Size (cm) - Width 0.1 0.1 -Current Size (cm) - Depth 0.1 0.1 -Total Square Cm 0.01 0.01 -Date of Last Picture (Recall this 07/23/23 field) -Photo Taken Yes -Tunneling No -Undermining/Tunneling No -Circular Undermining No -Exudate Amt Medium -Exudate Type Serosanguineous -Wound Margin Distinct, Outline Attached -Granulation Amt Medium (34-66%) -Granulation Quality [place] -Slough/Fibrin Yes -Necrosis Amt Medium (34-66%) -Necrotic Tissue Type Adherent Slough -Structure Exposed N/A -Texture (Adrianna-wound Skin Appearance) Assessed, Excoriation, Localized Edema -Moisture (Adrianna-wound Skin Appearance) Assessed -Color (Adrianna-wound Skin Appearance) Assessed -Temperature (Adrianna-wound Skin No Abnormality Appearance) (Pt Warm) -Tenderness on Palpation (Adrianna-wound No Skin Appearance) -Ulcer Cleansing Wound Cleanser -Foul Odor after Cleansing No -Anesthetic Used 4% Lidocaine Solution Lower Limb Edema Present Yes Right Calf (cm) 59.4 55 53 Right Ankle (cm) 31 30 28.8 Left Calf (cm) 56.5 55 59.1 Left Ankle (cm) 29.5 28.5 29.2 08/13/23 09:16 Wound Center Nurse 1 Left Lateral lower leg -Current Size (cm) - Length 0.1 -Current Size (cm) - Width 0.1 -Current Size (cm) - Depth 0.1 -Total Square Cm 0.01 -Ulcer Cleansing Soap and Water #5 RLE edema -Current Size (cm) - Length 0.1 -Current Size (cm) - Width 0.1 -Current Size (cm) - Depth 0.1 -Total Square Cm 0.01 -Date of Last Picture (Recall this field) -Photo Taken -Tunneling -Undermining/Tunneling -Circular Undermining -Exudate Amt -Exudate Type -Wound Margin -Granulation Amt -Granulation Quality -Slough/Fibrin -Necrosis Amt -Necrotic Tissue Type -Structure Exposed -Texture (Adrianna-wound Skin Appearance) -Moisture (Adrianna-wound Skin Appearance) -Color (Adrianna-wound Skin Appearance) -Temperature (Adrianna-wound Skin Appearance) -Tenderness on Palpation (Adrianna-wound Skin Appearance) -Ulcer Cleansing Soap and Water -Foul Odor after Cleansing -Anesthetic Used Lower Limb Edema Present Right Calf (cm) 52 Right Ankle (cm) 30.1 Left Calf (cm) 57 Left Ankle (cm) 30 - Nurse 2 - General Ulcer CM Notes Start: 07/23/23 09:03 Freq: Status: Active Protocol: Activity Type Activity Date Activity User E-sign Co-sign Detail Recorded Client Recorded Date Recorded By Document 07/23/23 09:32 Desktop 07/23/23 09:43 Document 07/30/23 09:52 [id number] 07/30/23 09:53 Document 08/06/23 09:10 Desktop 08/06/23 09:16 GM Document 08/13/23 09:43 Desktop 08/13/23 09:45 GM 07/23/23 07/30/2324 09:32 09:52 09:10 Wound Center Nurse 2 Left Lateral lower leg -Time 09:16 -Correct Patient Yes -Correct Side, Site, Position Yes -Correct Procedure Yes -Procedure Performed Yes -Type of Procedure Debridement -Clinical Debridement Epidermis / Dermis -Tissue Removed Epidermis -Post Debridement (cm) - Length 2.0 -Post Debridement (cm) - Width 2.5 -Post Debridement (cm) - Depth 0.1 -Total Square (Post) (cm) 5.00 -Area of Debridement (cm) - Length 2.0 -Area of Debridement (cm) - Width 2.5 -Total Square (Area) (cm) 5.00 -Tunneling No -Undermining/Tunneling No -Circular Undermining No -Wound/Ulcer Outcome Not Healed -Ulcer Cleansing Not Cleansed -Foul Odor after Cleansing No -Bioengineered Tissue No -Bleeding Controlled with Pressure -Treatment Response Procedure Tolerated Well -Debridement - Open, 1st 20sq cm Yes #5 RLE edema -Time 09:41 09:13 -Correct Patient Yes Yes Yes -Correct Side, Site, Position Yes Yes Yes Pain Scale: 0-10 Numeric Is Patient Pain Free? Yes Yes Yes 08/13/23 09:43 Wound Center Nurse 2 Left Lateral lower leg -Time 09:43 -Correct Patient Yes -Correct Side, Site, Position Yes -Correct Procedure -Procedure Performed -Type of Procedure -Clinical Debridement -Tissue Removed -Post Debridement (cm) - Length -Post Debridement (cm) - Width -Post Debridement (cm) - Depth -Total Square (Post) (cm) -Area of Debridement (cm) - Length -Area of Debridement (cm) - Width -Total Square (Area) (cm) -Tunneling -Undermining/Tunneling -Circular Undermining -Wound/Ulcer Outcome -Ulcer Cleansing -Foul Odor after Cleansing -Bioengineered Tissue -Bleeding Controlled with -Treatment Response -Debridement - Open, 1st 20sq cm #5 RLE edema -Time -Correct Patient -Correct Side, Site, Position Pain Scale: 0-10 Numeric Is Patient Pain Free? Yes WC - Nurse 3 - General Ulcer D/C NN Start: 07/23/23 09:03 Freq: Status: Active Protocol: Activity Type Activity Date Activity User E-sign Co-sign Detail Recorded Client Recorded Date Recorded By Document 07/23/23 09:54 KW Desktop 07/23/23 09:54 KW Document 07/30/23 10:32 RB Desktop 07/30/23 10:32 RB Document 08/06/23 09:42 RB Desktop 08/06/23 09:43 RB Document 08/13/23 10:02 KW Desktop 08/13/23 10:02 KW 07/23/23 07/30/23 08/06/23 09:54 10:32 09:42 Wound Care Center Nurse 3 Left Lateral lower leg -Ulcer Cleansing Wound Cleanser -Primary Dressing Applied Promogran Mp Matter -Other Dressing abd -Promogran Mp Matter 1 #5 RLE edema -Ulcer Cleansing Wound Cleanser BLE -Multi-Layered Wrap Application Unna Boot - Unna Boot - Unna Boot - Bilateral ($) Bilateral ($) Bilateral ($) Treatment Response Procedure Procedure Tolerated Well Tolerated Well Pain Scale: 0-10 Numeric Is Patient Pain Free? Yes Yes Yes Teaching: Wound Center Control Swelling with Leg Elevation -Person Taught Patient -Teaching Method Discussion -Response to teaching Verbalize understanding WC - Visit Discharge Discharge Condition Stable Stable Stable Ambulatory Status Ambulatory Ambulatory Ambulatory Transportation Private Auto Private Auto Private Auto Medication Reconcilliation completed & No No No provided to patient/care provider Clinical Summary of Care Provided Yes Yes Yes 08/13/23 10:02 Wound Care Center Nurse 3 Left Lateral lower leg -Ulcer Cleansing -Primary Dressing Applied -Other Dressing -Promogran Mp Matter #5 RLE edema -Ulcer Cleansing BLE -Multi-Layered Wrap Application Unna Boot - Bilateral ($) Treatment Response Pain Scale: 0-10 Numeric Is Patient Pain Free? Yes Teaching: Wound Center Control Swelling with Leg Elevation -Person Taught -Teaching Method -Response to teaching WC - Visit Discharge Discharge Condition Stable Ambulatory Status Ambulatory Transportation Private Auto Medication Reconcilliation completed & No provided to patient/care provider Clinical Summary of Care Provided Yes Assessment/Plan Assessment/Plan (1) Debility: CODE(S): R53.81 - Other malaise (2) Osteoarthritis: CODE(S): M19.90 - Unspecified osteoarthritis, unspecified site QUALIFIERS: Osteoarthritis location: multiple joints Osteoarthritis type: primary Qualified Code(s): M15.9 - Polyosteoarthritis, unspecified (3) COPD (chronic obstructive pulmonary disease): CODE(S): J44.9 - Chronic obstructive pulmonary disease, unspecified QUALIFIERS: COPD type: unspecified COPD Qualified Code(s): J44.9 - Chronic obstructive pulmonary disease, unspecified (4) Edema of both lower extremities: CODE(S): R60.0 - Localized edema (5) Venous insufficiency: CODE(S): I87.2 - Venous insufficiency (chronic) (peripheral) (6) Chronic hypoxemic respiratory failure: CODE(S): J96.11 - Chronic respiratory failure with hypoxia (7) Pulmonary hypertension: CODE(S): I27.20 - Pulmonary hypertension, unspecified (8) Morbid obesity with BMI of 45.0-49.9, adult: CODE(S): E66.01 - Morbid (severe) obesity due to excess calories; Z68.42 -Body mass index [BMI] 45.0-49.9, adult (9) Lymphedema: CODE(S): I89.0 - Lymphedema, not elsewhere classified (10) Hypothyroidism: CODE(S): E03.9 - Hypothyroidism, unspecified QUALIFIERS: Hypothyroidism type: unspecified Qualified Code(s): E03.9 - Hypothyroidism, unspecified (11) Type 2 diabetes mellitus: CODE(S): E11.9 - Type 2 diabetes mellitus without complications QUALIFIERS: Diabetes mellitus oil heaterman insulin use: without oil heaterman use Diabetes mellitus complication status: with other specified complication Qualified Code(s): E11.69 - Type 2 diabetes mellitus with other specified complication (12) DOLORES (obstructive sleep apnea): CODE(S): G47.33 - Obstructive sleep apnea (adult) (pediatric) (13) Venous ulcer of right lower extremity without varicose veins: CODE(S): I87.2 - Venous insufficiency (chronic) (peripheral); L97.919 - Non- pressure chronic ulcer of unspecified part of right lower leg with unspecified severity PLAN: Plan Evaluation and examination performed today in clinic as annotated above. At home wound-care instructions: Will continue using UNNA boots to bilateral LE. She tolerated them well. She was instructed to keep dressings clean and dry. Use a cast cover or sponge bath to avoid getting dressings wet. Compression: Liz has significant arthritis and is unable to don compression stockings on her own and has had several recurrences of ulcers and cellulitis over the last 18 months even with using graduated compression regularly. Due to her chronic lymphedema and recurrent ulcers it is medically necessary for her to undergo treatment with lymphedema pumps in order to prevent recurrent ulcers and cellulitis and prevent limb loss. She has failed conservative treatments with KATELYNN wraps and compression garments. She would be able to don lymphedema garments and operate the lymphedema pumps 3 times/day. Off-loading: The patient was instructed to avoid pressure and friction on the affected areas. Reposition every 2 hours at minimum. Avoid prolonged standing and/or dangling of legs. When seated, feet should be elevated at chest level. Frequent ambulation is encouraged. Diet: Patient encouraged to increase protein intake while taking caution to avoid high carbohydrate and/or sugar intake. Encouraged weight loss. 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 Prealbumin 17.8. Advised addition of protein supplement. She is scheduled for vascular referral for 09/01/23. Encouraged her to schedule follow up appointment with her PCP to discuss incontinence and diuretic management. Will contact [facility] in [place] to assist her in determining steps needed to get her a CPAP mask to improve DOLORES and pulmonary HTN treatment compliance which is adding to her decompensated lymphedema. Follow-up: Return in 1 week for wound care follow up. Return sooner or report to the emergency room should symptoms worsen, or new symptoms arise. Note: webtide speech recognition train control electronic technician software was used to create portions of this document. Sound-alike and misspelled words, as well as other train control electronic technician errors may be contained in the documentation. 08/13/23 1323 <Electronically signed by Sneha Rosa DO> Cosigner Signature (if applicable): CC: ~ Signed [facility] Work Phone: [phone] 532-121202-16-2024 Progress note Author Sneha Rosa [facility] August 06, 2023 1:33pm Note Date/Time August 06, 2023 10:52am [facility] [address] [place] [address] Progress Note - Wound Care 08/06/23 0923 MR#: [id number] Acct: [id number] Name: LIZ WADSWORTH Rep #:[id number] : 1950 73 From: Sneha Rosa DO PCP: Dr. Luis Cortés MD Status:R EG RCR Location: History of Present Illness Date of Service: 08/06/23 Chief Complaint: RLE wounds, bilateral lower extremity swelling History of Wound: Liz is a pleasant 73 yo woman that presents to the wound center for bilateral lower extremity edema and blisters of her right lower leg with recent cellulitis. She was seen in the ER on 06/20/23 and diagnosed with increased edema and possible cellulitis. She was treated with Keflex and Bumetanide. Her edema has improved some but is still present and she continues to have pain and drainage and blisters of her right lower leg. She does have compression stockings but it is difficult for her to wear when her legs are moreswollen and when they are painful. She tries to elevate her legs when she is sitting but is not always consistent with doing this. She has been wrapping her leg with gauze when it is seeping but otherwise has not been doing any regular dressings. Patient has been treated at the wound center in the past for similar wounds, most recently September 2022. She has also been seen in the vascular surgery clinic where she was evaluated her for BLE DVT and venous insufficiency. 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 GSV ablation has been considered if she continued to develop recurrenceof wounds. Last venous study was 03/2022. Last A1C 01/2023 was 6.4%. Last TSH - 01/2022 Patient's medical history is also significant for CHF, COPD, T2DM, lymphedema. She has a CPAP but has not been using this due to needing a new mask. She statesthat a prescription was to be sent and she never received the mask. Her current mask has a hole in it. She is also on oxygen but yesterday the concentrator is not working and she needs to call the company to come and check the device. She reports chills but no fever. She has pain and burning in her right leg that is worse at night. Subjective Subjective Liz returns for evaluation and treatment of bilateral lymphedema and ulcers ofR LE. She tolerated treatment with UNNA boots with improvement in edema and ulcers. Decreased pain. Objective Data Objective Data Vital Signs: Vital Signs Temp Pulse Resp BP O2 Del Method 97.2 F L 74 18 161/64 H Room Air 08/06/23 08:59 08/06/23 08:59 08/06/23 08:59 08/06/23 08:59 08/06/23 08:59 Oxygen Delivery Method Room Air Weight: 140.16 kg Body Mass Index (BMI) 49.8 Physical Exam Const alert, oriented x3 and no apparent distress General Appearance: cooperative and comfortable Nutritional Appearance: obese HEENT normocephalic and head/scalp atraumatic Lymph Lymphatic: lymphedema severe and pitting Resp normal respiratory effort Effort and Inspection: able to speak in complete sentences Cardio regular rate and regular rhythm Extremity General Extremity: edema bilateral lower extremity Details: severe (with skin changes associated with lymphedema, thickened nodular appearance from mid allen to ankle) Skin General Skin Exam: erythema, venous stasis and dermatitis Wounds: wounds noted Wound Narrative: as in clinical panel Psych mental status grossly normal, thought process normal, cooperative and affect normal Debridement Note Debridement Note Wound debrided: left lateral LE Laterality: Left Type of Debridement: Selective debridement Depth: Down to and including healthy tissue Percentage of wound debrided: 100 Instrument Used: - (gauze) Tissue Removed: devitalized tissue Severity: Limited To Skin Breakdown Amount of bleeding with debridement: None Bleeding Controlled with: Pressure Patient tolerated procedure: Patient tolerated procedure well Post-Debridement Measurements and Additional Note: Post-Debridement Measurements/Treatment - Nurse 1 - General Ulcer Assessment Start: 07/23/23 09:03 Freq: Status: Active Protocol: [email or web address] Activity Type Activity Date Activity User E-sign Co-sign Detail Recorded Client Recorded Date Recorded By Document 07/23/23 09:03 KW Desktop 07/23/23 09:16 KW Document 07/30/23 09:43 RB Desktop 07/30/23 09:46 RB Document 08/06/23 08:59 KW Desktop 08/06/23 09:04 KW 07/23/23 07/30/23 08/06/23 09:03 09:43 08:59 - Today's Visit Information Type of service Initial Visit Follow-up Visit Follow-up Visit (Physician/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 (Physician/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 ) ) Arrival Mode Ambulatory Ambulatory Ambulatory Transfer Assistance None Accompanied by Patient Identification Verified (Name & Yes Yes Yes ) Patient Requires Transmission-Based No Precautions Height and Weight Height 5 ft 6 in Weight 140.16 kg Weight in Pounds 309.0 lbs Body Mass Index (BMI) 49.8 49.8 49.8 BMI Classification Obese Obese Obese BSA - Marie 2.41 Vital Signs Temperature (97.8 F-99.1 F) 98.9 F 97 F L 97.2 F L Temperature Source Temporal Temporal Temporal Pulse Rate (60-100) 86 80 74 Pulse Location Monitor Monitor Monitor Respiratory Rate (12-18) 18 18 18 Respiratory rate source Observation Observation Observation Oxygen Delivery Method Room Air Room Air Blood Pressure (90/60-120/80) 134/71 H 180/56 H 161/64 H Blood Pressure Mean (mm Hg) 92 97 96 Source Monitor Monitor Monitor Position Semi-Fowlers Semi-Fowlers Semi-Fowlers Blood Pressure Location Left Arm Left Arm Right Arm History Since Last Visit- (Skip if this is Patient's initial visit) Have you changed medications since your No No last visit? Any new allergies or adverse reactions No No Had a fall/change in ADL's that may No No increase risk of falls Signs or symptoms of abuse and/or No No neglect since last visit Have you been in the hospital since your No No last visit? Has dressing in place as prescribed Yes Yes Has compression in place as prescribed Yes Yes Has offloadiing in place as prescribed No N/A Experienced any changes in pain level or No No management Left Footwear Regular Shoe Regular Shoe Right Footwear Regular Shoe Regular Shoe Pain Scale: 0-10 Numeric Is Patient Pain Free? Yes Yes Yes Lower Extremity Assessment/ Foot Assessment/ Toe Nail Assessment Right -Hair Growth on Legs No -Hair Growth on Toes No -Thick Yes -Discolored Yes Left -Hair Growth on Legs No -Hair Growth on Toes No -Thick Yes -Discolored Yes Neuropathy Assessment Feet - Top Side and Bottom <Entered> (a) Communication Assessment Preferred language Taiwanese Able to Read Yes Able to Write Yes Communication Tools None Caregiver Communication Skills No Impairment Impairment Right Hearing Abillity Normal Left Hearing Abillity Normal Visual Assistive Devices Glasses Teaching Assessment Preferences Verbal,Written, Demonstration Barriers to Learning None Readiness To Learn Excellent Willingness to Engage in Self Management High Activies Readiness to Engage in Self Management High Activities Anxiety Level Calm Cooperation Cooperative Perception Coherent Interest in Health Problem Asks Questions Education Importance Acknowledges Need Does Patient Smoke tobacco or other No substances Smoking Status Never smoker Is Patient Diabetic No Functional Assessment Recent Decline in Ability to Perform Denies Any Declines Assistive Device With Patient No Culture/Jew/Uncrater Cultural/Jew Needs that may affect No Treatment Plan Would you allow our hospital hand baseball sewer to No meet you for the purpose of spiritual/ emotional support? Uncrater to contact place of alevism No (a) 1 - + WC - Nurse 1 - General Ulcer Measurement Start: 07/23/23 09:03 Freq: Status: Active Protocol: Activity Type Activity Date Activity User E-sign Co-sign Detail Recorded Client Recorded Date Recorded By Document 07/23/23 09:03 KW Desktop 07/23/23 09:16 KW Document 07/30/23 09:43 RB Desktop 07/30/23 09:46 RB Document 08/06/23 08:59 KW Desktop 08/06/23 09:04 KW 07/23/23 07/30/23 08/06/23 09:03 09:43 08:59 Wound Center Nurse 1 #5 RLE edema -Current Size (cm) - Length 0.1 0.1 -Current Size (cm) - Width 0.1 0.1 -Current Size (cm) - Depth 0.1 0.1 -Total Square Cm 0.01 0.01 -Date of Last Picture (Recall this 07/23/23 field) -Photo Taken Yes -Tunneling No -Undermining/Tunneling No -Circular Undermining No -Exudate Amt Medium -Exudate Type Serosanguineous -Wound Margin Distinct, Outline Attached -Granulation Amt Medium (34-66%) -Granulation Quality [place] -Slough/Fibrin Yes -Necrosis Amt Medium (34-66%) -Necrotic Tissue Type Adherent Slough -Structure Exposed N/A -Texture (Adrianna-wound Skin Appearance) Assessed, Excoriation, Localized Edema -Moisture (Adrianna-wound Skin Appearance) Assessed -Color (Adrianna-wound Skin Appearance) Assessed -Temperature (Adrianna-wound Skin No Abnormality Appearance) (Pt Warm) -Tenderness on Palpation (Adrianna-wound No Skin Appearance) -Ulcer Cleansing Wound Cleanser -Foul Odor after Cleansing No -Anesthetic Used 4% Lidocaine Solution Lower Limb Edema Present Yes Right Calf (cm) 59.4 55 53 Right Ankle (cm) 31 30 28.8 Left Calf (cm) 56.5 55 59.1 Left Ankle (cm) 29.5 28.5 29.2 - Nurse 2 - General Ulcer CM Notes Start: 07/23/23 09:03 Freq: Status: Active Protocol: Activity Type Activity Date Activity User E-sign Co-sign Detail Recorded Client Recorded Date Recorded By Document 07/23/23 09:32 GM Desktop 07/23/23 09:43 GM Document 07/30/23 09:52 [id number] 07/30/23 09:53 Document 08/06/23 09:10 GM Desktop 08/06/23 09:16 GM 07/23/23 07/30/23 08/06/23 09:32 09:52 09:10 Wound Center Nurse 2 Left Lateral lower leg -Time 09:16 -Correct Patient Yes -Correct Side, Site, Position Yes -Correct Procedure Yes -Procedure Performed Yes -Type of Procedure Debridement -Clinical Debridement Epidermis / Dermis -Tissue Removed Epidermis -Post Debridement (cm) - Length 2.0 -Post Debridement (cm) - Width 2.5 -Post Debridement (cm) - Depth 0.1 -Total Square (Post) (cm) 5.00 -Area of Debridement (cm) - Length 2.0 -Area of Debridement (cm) - Width 2.5 -Total Square (Area) (cm) 5.00 -Tunneling No -Undermining/Tunneling No -Circular Undermining No -Wound/Ulcer Outcome Not Healed -Ulcer Cleansing Not Cleansed -Foul Odor after Cleansing No -Bioengineered Tissue No -Bleeding Controlled with Pressure -Treatment Response Procedure Tolerated Well -Debridement - Open, 1st 20sq cm Yes #5 RLE edema -Time 09:41 09:13 -Correct Patient Yes Yes Yes -Correct Side, Site, Position Yes Yes Yes Pain Scale: 0-10 Numeric Is Patient Pain Free? Yes Yes Yes - Nurse 3 - General Ulcer D/C NN Start: 07/23/23 09:03 Freq: Status: Active Protocol: Activity Type Activity Date Activity User E-sign Co-sign Detail Recorded Client Recorded Date Recorded By Document 07/23/23 09:54 KW Desktop 07/23/23 09:54 KW Document 07/30/23 10:32 RB Desktop 07/30/23 10:32 RB 07/23/23 07/30/23 09:54 10:32 Wound Care Center Nurse 3 #5 RLE edema -Ulcer Cleansing Wound Cleanser BLE -Multi-Layered Wrap Application Unna Boot - Unna Boot - Bilateral ($) Bilateral ($) Treatment Response Procedure Tolerated Well Pain Scale: 0-10 Numeric Is Patient Pain Free? Yes Yes Teaching: Wound Center Control Swelling with Leg Elevation -Person Taught Patient -Teaching Method Discussion -Response to teaching Verbalize understanding WC - Visit Discharge Discharge Condition Stable Stable Ambulatory Status Ambulatory Ambulatory Transportation Private Auto Private Auto Medication Reconcilliation completed & No No provided to patient/care provider Clinical Summary of Care Provided Yes Yes Assessment/Plan Assessment/Plan (1) Debility: CODE(S): R53.81 - Other malaise (2) Osteoarthritis: CODE(S): M19.90 - Unspecified osteoarthritis, unspecified site QUALIFIERS: Osteoarthritis location: multiple joints Osteoarthritis type: primary Qualified Code(s): M15.9 - Polyosteoarthritis, unspecified (3) COPD (chronic obstructive pulmonary disease): CODE(S): J44.9 - Chronic obstructive pulmonary disease, unspecified QUALIFIERS: COPD type: unspecified COPD Qualified Code(s): J44.9 - Chronic obstructive pulmonary disease, unspecified (4) Edema of both lower extremities: CODE(S): R60.0 - Localized edema (5) Venous insufficiency: CODE(S): I87.2 - Venous insufficiency (chronic) (peripheral) (6) Chronic hypoxemic respiratory failure: CODE(S): J96.11 - Chronic respiratory failure with hypoxia (7) Pulmonary hypertension: CODE(S): I27.20 - Pulmonary hypertension, unspecified (8) Morbid obesity with BMI of 45.0-49.9, adult: CODE(S): E66.01 - Morbid (severe) obesity due to excess calories; Z68.42 -Body mass index [BMI] 45.0-49.9, adult (9) Lymphedema: CODE(S): I89.0 - Lymphedema, not elsewhere classified (10) Hypothyroidism: CODE(S): E03.9 - Hypothyroidism, unspecified QUALIFIERS: Hypothyroidism type: unspecified Qualified Code(s): E03.9 - Hypothyroidism, unspecified (11) Type 2 diabetes mellitus: CODE(S): E11.9 - Type 2 diabetes mellitus without complications QUALIFIERS: Diabetes mellitus complication status: with other specified complication Diabetes mellitus oil heaterman insulin use: without residential use Qualified Code(s): E11.69 - Type 2 diabetes mellitus with other specified complication (12) DOLORES (obstructive sleep apnea): CODE(S): G47.33 - Obstructive sleep apnea (adult) (pediatric) (13) Venous ulcer of right lower extremity without varicose veins: CODE(S): I87.2 - Venous insufficiency (chronic) (peripheral); L97.919 - Non- pressure chronic ulcer of unspecified part of right lower leg with unspecified severity PLAN: Plan Evaluation and examination performed today in clinic as annotated above. At home wound-care instructions: Will continue using UNNA boots to bilateral LE. She tolerated them well. She was instructed to keep dressings clean and dry. Use a cast cover or sponge bath to avoid getting dressings wet. Compression: Liz has significant arthritis and is unable to don compression stockings on her own and has had several recurrences of ulcers and cellulitis over the last 18 months even with using graduated compression regularly. Due to her chronic lymphedema and recurrent ulcers it is medically necessary for her to undergo treatment with lymphedema pumps in order to prevent recurrent ulcers and cellulitis and prevent limb loss. She has failed conservative treatments with KATELYNN wraps and compression garments. She would be able to don lymphedema garments and operate the lymphedema pumps 3 times/day. Off-loading: The patient was instructed to avoid pressure and friction on the affected areas. Reposition every 2 hours at minimum. Avoid prolonged standing and/or dangling of legs. When seated, feet should be elevated at chest level. Frequent ambulation is encouraged. Diet: Patient encouraged to increase protein intake while taking caution to avoid high carbohydrate and/or sugar intake. Encouraged weight loss. Labs/cultures/imaging: Venous testing done but awaiting results. Prealbumin 17.8. Advised addition of protein supplement. Encouraged her to schedule follow up appointment with her PCP to discuss incontinence and diuretic management. Will contact [facility] in [place] to assist her in determining steps needed to get her a CPAP mask to improve DOLORES and pulmonary HTN treatment compliance which is adding to her decompensated lymphedema. Follow-up: Return in 1 week for wound care follow up. Return sooner or report to the emergency room should symptoms worsen, or new symptoms arise. Note: webtide speech recognition train control electronic technician software was used to create portions of this document. Sound-alike and misspelled words, as well as other train control electronic technician errors may be contained in the documentation. 08/06/23 1333 <Electronically signed by Sneha Rosa DO> Cosigner Signature (if applicable): CC: ~ Signed [facility] Work Phone: [phone] 384-961102-09-2024 Progress note Author Sneha Rosa [facility] July 30, 2023 12:46pm Note Date/Time July 30, 2023 1 2:46pm [facility] [address] [place] [address] Progress Note - Wound Care 07/30/23 1242 MR#: [id number] Acct: [id number] Name: LIZ WADSWORTH Rep #:[id number] : 1950 73 From: Sneha Rosa DO PCP: Dr. Luis Cortés MD Status:R EG RCR Location: History of Present Illness Date of Service: 07/30/23 Chief Complaint: RLE wounds, bilateral lower extremity swelling History of Wound: Liz is a pleasant 73 yo woman that presents to the wound center for bilateral lower extremity edema and blisters of her right lower leg with recent cellulitis. She was seen in the ER on 06/20/23 and diagnosed with increased edema and possible cellulitis. She was treated with Keflex and Bumetanide. Her edema has improved some but is still present and she continues to have pain and drainage and blisters of her right lower leg. She does have compression stockings but it is difficult for her to wear when her legs are moreswollen and when they are painful. She tries to elevate her legs when she is sitting but is not always consistent with doing this. She has been wrapping her leg with gauze when it is seeping but otherwise has not been doing any regular dressings. Patient has been treated at the wound center in the past for similar wounds, most recently September 2022. She has also been seen in the vascular surgery clinic where she was evaluated her for BLE DVT and venous insufficiency. 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 GSV ablation has been considered if she continued to develop recurrenceof wounds. Last venous study was 03/2022. Last A1C 01/2023 was 6.4%. Last TSH - 01/2022 Patient's medical history is also significant for CHF, COPD, T2DM, lymphedema. She has a CPAP but has not been using this due to needing a new mask. She statesthat a prescription was to be sent and she never received the mask. Her current mask has a hole in it. She is also on oxygen but yesterday the concentrator is not working and she needs to call the company to come and check the device. She reports chills but no fever. She has pain and burning in her right leg that is worse at night. Subjective Subjective Liz returns for evaluation and treatment of bilateral lymphedema and ulcers ofR LE. She tolerated treatment with UNNA boots with improvement in edema and ulcers. Decreased pain. Objective Data Objective Data Vital Signs: Vital Signs Temp Pulse Resp BP O2 Del Method 97 F L 80 18 180/56 H Room Air 07/30/23 09:43 07/30/23 09:43 07/30/23 09:43 07/30/23 09:43 07/23/23 09:03 Oxygen Delivery Method Room Air Weight: 140.16 kg Body Mass Index (BMI) 49.8 Physical Exam Const alert, oriented x3 and no apparent distress General Appearance: cooperative and comfortable Nutritional Appearance: obese HEENT normocephalic and head/scalp atraumatic Lymph Lymphatic: lymphedema severe and pitting Resp normal respiratory effort Effort and Inspection: able to speak in complete sentences Cardio regular rate and regular rhythm Extremity General Extremity: edema bilateral lower extremity Details: severe (with skin changes associated with lymphedema, thickened nodular appearance from mid allen to ankle) Skin General Skin Exam: erythema, venous stasis and dermatitis Wounds: wounds noted Wound Narrative: as in clinical panel Psych mental status grossly normal, thought process normal, cooperative and affect normal Debridement Note Debridement Note Wound debrided: Right LE cluster Laterality: Right No debridement was completed: No debridement was completed today Post-Debridement Measurements and Additional Note: Post-Debridement Measurements/Treatment WC - Nurse 1 - General Ulcer Assessment Start: 07/23/23 09:03 Freq: Status: Active Protocol: KELSEY Activity Type Activity Date Activity User E-sign Co-sign Detail Recorded Client Recorded Date Recorded By Document 07/23/23 09:03 KW Desktop 07/23/23 09:16 KW Document 07/30/23 09:43 RB Desktop 07/30/23 09:46 RB 07/23/23 07/30/23 09:03 09:43 WC - Today's Visit Information Type of service Initial Visit Follow-up Visit (Physician/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 ) Arrival Mode Ambulatory Ambulatory Transfer Assistance None Accompanied by Patient Identification Verified (Name & Yes Yes ) Patient Requires Transmission-Based No Precautions Height and Weight Height 5 ft 6 in Weight 140.16 kg Weight in Pounds 309.0 lbs Body Mass Index (BMI) 49.8 49.8 BMI Classification Obese Obese BSA - Marie 2.41 Vital Signs Temperature (97.8 F-99.1 F) 98.9 F 97 F L Temperature Source Temporal Temporal Pulse Rate (60-100) 86 80 Pulse Location Monitor Monitor Respiratory Rate (12-18) 18 18 Respiratory rate source Observation Observation Oxygen Delivery Method Room Air Blood Pressure (90/60-120/80) 134/71 H 180/56 H Blood Pressure Mean (mm Hg) 92 97 Source Monitor Monitor Position Semi-Fowlers Semi-Fowlers Blood Pressure Location Left Arm Left Arm History Since Last Visit- (Skip if this is Patient's initial visit) Have you changed medications since your No last visit? Any new allergies or adverse reactions No Had a fall/change in ADL's that may No increase risk of falls Signs or symptoms of abuse and/or No neglect since last visit Have you been in the hospital since your No last visit? Has dressing in place as prescribed Yes Has compression in place as prescribed Yes Has offloadiing in place as prescribed No Experienced any changes in pain level or No management Left Footwear Regular Shoe Right Footwear Regular Shoe Pain Scale: 0-10 Numeric Is Patient Pain Free? Yes Yes Lower Extremity Assessment/ Foot Assessment/ Toe Nail Assessment Right -Hair Growth on Legs No -Hair Growth on Toes No -Thick Yes -Discolored Yes Left -Hair Growth on Legs No -Hair Growth on Toes No -Thick Yes -Discolored Yes Neuropathy Assessment Feet - Top Side and Bottom <Entered> (a) Communication Assessment Preferred language Taiwanese Able to Read Yes Able to Write Yes Communication Tools None Caregiver Communication Skills No Impairment Impairment Right Hearing Abillity Normal Left Hearing Abillity Normal Visual Assistive Devices Glasses Teaching Assessment Preferences Verbal,Written, Demonstration Barriers to Learning None Readiness To Learn Excellent Willingness to Engage in Self Management High Activies Readiness to Engage in Self Management High Activities Anxiety Level Calm Cooperation Cooperative Perception Coherent Interest in Health Problem Asks Questions Education Importance Acknowledges Need Does Patient Smoke tobacco or other No substances Smoking Status Never smoker Is Patient Diabetic No Functional Assessment Recent Decline in Ability to Perform Denies Any Declines Assistive Device With Patient No Culture/Jew/Uncrater Cultural/Jew Needs that may affect No Treatment Plan Would you allow our hospital hand baseball sewer to No meet you for the purpose of spiritual/ emotional support? Uncrater to contact place of alevism No (a) 1 - + WC - Nurse 1 - General Ulcer Measurement Start: 07/23/23 09:03 Freq: Status: Active Protocol: Activity Type Activity Date Activity User E-sign Co-sign Detail Recorded Client Recorded Date Recorded By Document 07/23/23 09:03 KW Desktop 07/23/23 09:16 KW Document 07/30/23 09:43 RB Desktop 07/30/23 09:46 RB 07/23/23 07/30/23 09:03 09:43 Wound Center Nurse 1 #5 RLE edema -Current Size (cm) - Length 0.1 0.1 -Current Size (cm) - Width 0.1 0.1 -Current Size (cm) - Depth 0.1 0.1 -Total Square Cm 0.01 0.01 -Date of Last Picture (Recall this 07/23/23 field) -Photo Taken Yes -Tunneling No -Undermining/Tunneling No -Circular Undermining No -Exudate Amt Medium -Exudate Type Serosanguineous -Wound Margin Distinct, Outline Attached -Granulation Amt Medium (34-66%) -Granulation Quality [place] -Slough/Fibrin Yes -Necrosis Amt Medium (34-66%) -Necrotic Tissue Type Adherent Slough -Structure Exposed N/A -Texture (Adrianna-wound Skin Appearance) Assessed, Excoriation, Localized Edema -Moisture (Adrianna-wound Skin Appearance) Assessed -Color (Adrianna-wound Skin Appearance) Assessed -Temperature (Adrianna-wound Skin No Abnormality Appearance) (Pt Warm) -Tenderness on Palpation (Adrianna-wound No Skin Appearance) -Ulcer Cleansing Wound Cleanser -Foul Odor after Cleansing No -Anesthetic Used 4% Lidocaine Solution Lower Limb Edema Present Yes Right Calf (cm) 59.4 55 Right Ankle (cm) 31 30 Left Calf (cm) 56.5 55 Left Ankle (cm) 29.5 28.5 - Nurse 2 - General Ulcer CM Notes Start: 07/23/23 09:03 Freq: Status: Active Protocol: Activity Type Activity Date Activity User E-sign Co-sign Detail Recorded Client Recorded Date Recorded By Document 07/23/23 09:32 GM Desktop 07/23/23 09:43 GM Document 07/30/23 09:52 [id number] 07/30/23 09:53 GM 07/23/23 07/30/23 09:32 09:52 Wound Center Nurse 2 #5 RLE edema -Time 09:41 -Correct Patient Yes Yes -Correct Side, Site, Position Yes Yes Pain Scale: 0-10 Numeric Is Patient Pain Free? Yes Yes - Nurse 3 - General Ulcer D/C NN Start: 07/23/23 09:03 Freq: Status: Active Protocol: Activity Type Activity Date Activity User E-sign Co-sign Detail Recorded Client Recorded Date Recorded By Document 07/23/23 09:54 KW Desktop 07/23/23 09:54 KW Document 07/30/23 10:32 RB Desktop 07/30/23 10:32 RB 07/23/23 07/30/23 09:54 10:32 Wound Care Center Nurse 3 #5 RLE edema -Ulcer Cleansing Wound Cleanser BLE -Multi-Layered Wrap Application Unna Boot - Unna Boot - Bilateral ($) Bilateral ($) Treatment Response Procedure Tolerated Well Pain Scale: 0-10 Numeric Is Patient Pain Free? Yes Yes Teaching: Wound Center Control Swelling with Leg Elevation -Person Taught Patient -Teaching Method Discussion -Response to teaching Verbalize understanding - Visit Discharge Discharge Condition Stable Stable Ambulatory Status Ambulatory Ambulatory Transportation Private Auto Private Auto Medication Reconcilliation completed & No No provided to patient/care provider Clinical Summary of Care Provided Yes Yes Assessment/Plan Assessment/Plan (1) Debility: CODE(S): R53.81 - Other malaise (2) Osteoarthritis: CODE(S): M19.90 - Unspecified osteoarthritis, unspecified site QUALIFIERS: Osteoarthritis location: multiple joints Osteoarthritis type: primary Qualified Code(s): M15.9 - Polyosteoarthritis, unspecified (3) COPD (chronic obstructive pulmonary disease): CODE(S): J44.9 - Chronic obstructive pulmonary disease, unspecified QUALIFIERS: COPD type: unspecified COPD Qualified Code(s): J44.9 - Chronic obstructive pulmonary disease, unspecified (4) Edema of both lower extremities: CODE(S): R60.0 - Localized edema (5) Venous insufficiency: CODE(S): I87.2 - Venous insufficiency (chronic) (peripheral) (6) Chronic hypoxemic respiratory failure: CODE(S): J96.11 - Chronic respiratory failure with hypoxia (7) Pulmonary hypertension: CODE(S): I27.20 - Pulmonary hypertension, unspecified (8) Morbid obesity with BMI of 45.0-49.9, adult: CODE(S): E66.01 - Morbid (severe) obesity due to excess calories; Z68.42 -Body mass index [BMI] 45.0-49.9, adult (9) Lymphedema: CODE(S): I89.0 - Lymphedema, not elsewhere classified (10) Hypothyroidism: CODE(S): E03.9 - Hypothyroidism, unspecified QUALIFIERS: Hypothyroidism type: unspecified Qualified Code(s): E03.9 - Hypothyroidism, unspecified (11) Type 2 diabetes mellitus: CODE(S): E11.9 - Type 2 diabetes mellitus without complications QUALIFIERS: Diabetes mellitus residential insulin use: without oil heaterman use Diabetes mellitus complication status: with other specified complication Qualified Code(s): E11.69 - Type 2 diabetes mellitus with other specified complication (12) DOLORES (obstructive sleep apnea): CODE(S): G47.33 - Obstructive sleep apnea (adult) (pediatric) (13) Venous ulcer of right lower extremity without varicose veins: CODE(S): I87.2 - Venous insufficiency (chronic) (peripheral); L97.919 - Non- pressure chronic ulcer of unspecified part of right lower leg with unspecified severity PLAN: Plan Evaluation and examination performed today in clinic as annotated above. At home wound-care instructions: Will continue using UNNA boots to bilateral LE. She tolerated them well. She was instructed to keep dressings clean and dry. Use a cast cover or sponge bath to avoid getting dressings wet. Off-loading: The patient was instructed to avoid pressure and friction on the affected areas. Reposition every 2 hours at minimum. Avoid prolonged standing and/or dangling of legs. When seated, feet should be elevated at chest level. Frequent ambulation is encouraged. Diet: Patient encouraged to increase protein intake while taking caution to avoid high carbohydrate and/or sugar intake. Encouraged weight loss. Labs/cultures/imaging: Venous testing done but awaiting results. Prealbumin 17.8. Advised addition of protein supplement. Encouraged her to schedule follow up appointment with her PCP to discuss incontinence and diuretic management. Will contact [facility] in [place] to assist her in determining steps needed to get her a CPAP mask to improve DOLORES and pulmonary HTN treatment compliance which is adding to her decompensated lymphedema. Follow-up: Return in 1 week for wound care follow up. Return sooner or report to the emergency room should symptoms worsen, or new symptoms arise. Note: webtide speech recognition train control electronic technician software was used to create portions of this document. Sound-alike and misspelled words, as well as other train control electronic technician errors may be contained in the documentation. 07/30/23 1246 <Electronically signed by Sneha Rosa DO> Cosigner Signature (if applicable): CC: ~ Signed [facility] Work Phone: 1([phone] 576-648502-02-2024 History and physical note Author Sneha Rosa [facility] July 23, 2023 2:31pm Note Date/Time July 23, 2023 2 :27pm [facility] [address] [place] [id number] H&P Exam - Wound Care 07/23/23 1406 MR#: [id number] Acct: [id number] Name: LIZ WADSWORTH Rep #:[id number] : 1950 73 From: Sneha Rosa DO PCP: Dr. Luis Cortés MD Status:R EG RCR Location: History of Present Illness Date of Service: 07/23/23 Chief Complaint: RLE wounds, bilateral lower extremity swelling History of Wound: Liz is a pleasant 73 yo woman that presents to the wound center for bilateral lower extremity edema and blisters of her right lower leg with recent cellulitis. She was seen in the ER on 06/20/23 and diagnosed with increased edema and possible cellulitis. She was treated with Keflex and Bumetanide. Her edema has improved some but is still present and she continues to have pain and drainage and blisters of her right lower leg. She does have compression stockings but it is difficult for her to wear when her legs are moreswollen and when they are painful. She tries to elevate her legs when she is sitting but is not always consistent with doing this. She has been wrapping her leg with gauze when it is seeping but otherwise has not been doing any regular dressings. Patient has been treated at the wound center in the past for similar wounds, most recently September 2022. She has also been seen in the vascular surgery clinic where she was evaluated her for BLE DVT and venous insufficiency. 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 GSV ablation has been considered if she continued to develop recurrenceof wounds. Last venous study was 03/2022. Last A1C 01/2023 was 6.4%. Last TSH - 01/2022 Patient's medical history is also significant for CHF, COPD, T2DM, lymphedema. She has a CPAP but has not been using this due to needing a new mask. She statesthat a prescription was to be sent and she never received the mask. Her current mask has a hole in it. She is also on oxygen but yesterday the concentrator is not working and she needs to call the company to come and check the device. She reports chills but no fever. She has pain and burning in her right leg that is worse at night. [facility] Medical History Abdominal pain Alcohol use Asthma Back pain Bladder disease Blister Cardiology follow-up encounter Chronic respiratory failure with hypoxia Constipation COPD (chronic obstructive pulmonary disease) CPAP (continuous positive airway pressure) dependence Debility Depression Depression Dermatitis Diabetes Diabetes mellitus type 2 in obese Dietary restriction Difficulty swallowing Difficulty swallowing DVT (deep venous thrombosis) DVT, bilateral lower limbs Easy bruising Essential hypertension Former smoker Gastric ulcer GERD (gastroesophageal reflux disease) Health care maintenance History of CHF (congestive heart failure) History of echocardiogram History of edema History of pain when walking Hx of cyst of breast Hyperlipidemia Hypertension Hypothyroidism Inactivity Left knee pain Left ventricular hypertrophy Leg cramps Lymphedema Morbid obesity with BMI of 45.0-49.9, adult Neuropathy On home oxygen therapy DOLORES (obstructive sleep apnea) Osteoarthritis Pneumonia due to COVID-19 virus (01/30/21) Secondary pulmonary arterial hypertension Shingles Shortness of breath on exertion Sore throat Syncope Type 2 diabetes mellitus Ulcer of right lower extremity Urinary incontinence with continuous leakage Walker as ambulation aid Wears dentures Wears glasses Home Medications fenofibrate nanocrystallized 48 mg tablet 48 mg PO DAILY 05/07/21 [History Last Taken Unknown] calcium carb 300 mg-D3 20 mcg-mag ox 25 mg-copyright clerk 0.5 [id number] tablet (Caltrate-D3 Plus Minerals) 1 tab PO DAILY 06/09/21 [History Last Taken Unknown] Nebulizer #1 ea 10/06/21 [Rx Last Taken Unknown] docusate sodium 100 mg capsule (Stool Softener) 100 mg PO BID 06/04/22 [History Last Taken Unknown] furosemide 40 mg tablet 40 mg PO BID HEART FAILURE #180 tabs 09/04/22 [Rx Last Taken Unknown] fluticasone fur. 200 mcg-umeclid 62.5 mcg-vilant 25 mcg inhalat.powder (Trelegy Ellipta) 1 inh inhalation DAILY #60 ea 10/01/22 [Rx Last Taken Unknown] Handicap Placard #1 ea 11/02/22 [Rx Last Taken Unknown] Bedside Commode #1 ea 02/11/23 [Rx Last Taken Unknown] walker (Ultra-Light Rollator misc) #1 ea 02/11/23 [Rx Last Taken Unknown] levothyroxine 100 mcg tablet See Rx Instructions .Route .COMPLEX #90 tabs 04/28/23 [Rx Last Taken Unknown] albuterol sulfate 90 mcg/actuation aerosol inhaler 2 puff inhalation Q6H PRN shortness of breath or wheezing #8.5 grams 05/17/23 [Rx Last Taken Unknown] atorvastatin 40 mg tablet 40 mg PO QHS 06/20/23 [History Last Taken Unknown] bumetanide 1 mg tablet 1 mg PO BID #14 tabs 06/20/23 [Rx Last Taken Unknown] carvedilol 25 mg tablet 25 mg PO DAILY 06/20/23 [History Last Taken Unknown] cephalexin 500 mg capsule 500 mg PO TID 7 days #21 caps 06/20/23 [Rx Last Taken Unknown] duloxetine 60 mg capsule,delayed release 60 mg PO DAILY 06/20/23 [History Last Taken Unknown] oxybutynin chloride 5 mg tablet 5 mg PO BID bladder 06/20/23 [History Last Taken Unknown] pantoprazole 40 mg tablet,delayed release 40 mg PO DAILY 06/20/23 [History Last Taken Unknown] Allergy/AdvReac Type Severity Reaction Status Date / Time aspirin AdvReac Abd Verified 06/20/23 15:45 cramps/diarrhea codeine AdvReac Abd Verified 06/20/23 15:45 cramps/diarrhea Penicillins AdvReac Hives Verified 06/20/23 15:45 Family History Grandfather Cancer Daughter Ovarian cancer Brother Diabetes Kidney disease Surgical History History of bunionectomy History of esophagogastroduodenoscopy (EGD) Hx of cholecystectomy Hx of colonoscopy Social History Smoking Status: Never smoker Tobacco: How many years used: 30 how long ago did patient quit smokin years alcohol intake: never substance use type: does not use what type of physical activity do you participate in: none ROS Constitutional Constitutional: Reports chills; Denies fatigue or fever(s) Eyes Eyes: Denies blurry vision, change in vision or loss of vision ENT HEENT: Denies dysphagia, hearing loss or sore throat Cardiovascular Cardiovascular: Reports edema and leg edema; Denies chest pain or palpitations Respiratory/Chest Respiratory/Chest: Denies dry cough, dyspnea, dyspnea on exertion, productive cough or wheezing Gastrointestinal Gastrointestinal: Denies diarrhea, nausea or vomiting Genitourinary Genitourinary: Reports urinary incontinence; Denies dysuria or polyuria Musculoskeletal Musculoskeletal: Reports arthralgias, difficulty walking, extremity pain and joint stiffness; Denies muscle weakness Integumentary Integumentary: Reports erythema and wounds Neurologic Neurologic: Denies dizziness, memory loss or weakness Psychiatric Psychiatric: Denies homicidal ideation or suicidal ideation Endocrine Endocrinology: Denies polydipsia, polyphagia or polyuria Hematologic/Lymphatic Hematologic/Lymphatic: Denies easy bleeding or easy bruising Allergic/Immunologic Allergic/Immunologic: Denies throat swelling, tongue swelling or urticaria Vital Signs Vital Signs Vital Signs: 07/23/23 09:03 Temperature 98.9 F Temperature Source Temporal Pulse Rate 86 Respiratory Rate 18 Blood Pressure 134/71 H Blood Pressure Mean 92 Blood Pressure Source Monitor Blood Pressure Position Semi-Fowlers Blood Pressure Location Left Arm Oxygen Delivery Method Room Air Weight Weight: 140.16 kg Body Mass Index (BMI) 49.8 Physical Exam Const alert, oriented x3 and no apparent distress General Appearance: cooperative and comfortable Nutritional Appearance: obese HEENT normocephalic and head/scalp atraumatic Lymph Lymphatic: lymphedema severe and pitting Resp normal respiratory effort Effort and Inspection: able to speak in complete sentences Cardio regular rate and regular rhythm Extremity General Extremity: edema bilateral lower extremity Details: severe (with skin changes associated with lymphedema, thickened nodular appearance from mid allen to ankle) Skin General Skin Exam: erythema, venous stasis and dermatitis Wounds: wounds noted Wound Narrative: as in clinical panel Psych mental status grossly normal, thought process normal, cooperative and affect normal Debridement Note Debridement Note Wound debrided: right lower extremity Laterality: Right No debridement was completed: No debridement was completed today (multiple recently opened blisters without slough throughout lower leg with skin breakdown) Post-Debridement Measurements and Additional Note: Post-Debridement Measurements/Treatment - Nurse 1 - General Ulcer Assessment Start: 07/23/23 09:03 Freq: Status: Active Protocol: KELSEY Activity Type Activity Date Activity User E-sign Co-sign Detail Recorded Client Recorded Date Recorded By Document 07/23/23 09:03 KW Desktop 07/23/23 09:16 KW 07/23/23 09:03 - Today's Visit Information Type of service Initial Visit Arrival Mode Ambulatory Accompanied by Patient Identification Verified (Name & Yes ) Height and Weight Height 5 ft 6 in Weight 140.16 kg Weight in Pounds 309.0 lbs Body Mass Index (BMI) 49.8 BMI Classification Obese BSA - Marie 2.41 Vital Signs Temperature (97.8 F-99.1 F) 98.9 F Temperature Source Temporal Pulse Rate (60-100) 86 Pulse Location Monitor Respiratory Rate (12-18) 18 Respiratory rate source Observation Oxygen Delivery Method Room Air Blood Pressure (90/60-120/80) 134/71 H Blood Pressure Mean (mm Hg) 92 Source Monitor Position Semi-Fowlers Blood Pressure Location Left Arm History Since Last Visit- (Skip if this is Patient's initial visit) Left Footwear Regular Shoe Right Footwear Regular Shoe Pain Scale: 0-10 Numeric Is Patient Pain Free? Yes Lower Extremity Assessment/ Foot Assessment/ Toe Nail Assessment Right -Hair Growth on Legs No -Hair Growth on Toes No -Thick Yes -Discolored Yes Left -Hair Growth on Legs No -Hair Growth on Toes No -Thick Yes -Discolored Yes Neuropathy Assessment Feet - Top Side and Bottom <Entered> (a) Communication Assessment Preferred language Taiwanese Able to Read Yes Able to Write Yes Communication Tools None Caregiver Communication Skills No Impairment Impairment Right Hearing Abillity Normal Left Hearing Abillity Normal Visual Assistive Devices Glasses Teaching Assessment Preferences Verbal,Written, Demonstration Barriers to Learning None Readiness To Learn Excellent Willingness to Engage in Self Management High Activies Readiness to Engage in Self Management High Activities Anxiety Level Calm Cooperation Cooperative Perception Coherent Interest in Health Problem Asks Questions Education Importance Acknowledges Need Does Patient Smoke tobacco or other No substances Smoking Status Never smoker Is Patient Diabetic No Functional Assessment Recent Decline in Ability to Perform Denies Any Declines Assistive Device With Patient No Culture/Jew/Uncrater Cultural/Jew Needs that may affect No Treatment Plan Would you allow our hospital hand baseball sewer to No meet you for the purpose of spiritual/ emotional support? Uncrater to contact place of alevism No (a) 1 - + WC - Nurse 1 - General Ulcer Measurement Start: 07/23/23 09:03 Freq: Status: Active Protocol: Activity Type Activity Date Activity User E-sign Co-sign Detail Recorded Client Recorded Date Recorded By Document 07/23/23 09:03 [email or web address] 07/23/23 09:16 KW 07/23/23 09:03 Wound Center Nurse 1 #5 RLE edema -Current Size (cm) - Length 0.1 -Current Size (cm) - Width 0.1 -Current Size (cm) - Depth 0.1 -Total Square Cm 0.01 -Date of Last Picture (Recall this 07/23/23 field) -Photo Taken Yes -Anesthetic Used 4% Lidocaine Solution Right Calf (cm) 59.4 Right Ankle (cm) 31 Left Calf (cm) 56.5 Left Ankle (cm) 29.5 WC - Nurse 2 - General Ulcer CM Notes Start: 07/23/23 09:03 Freq: Status: Active Protocol: Activity Type Activity Date Activity User E-sign Co-sign Detail Recorded Client Recorded Date Recorded By Document 07/23/23 09:32 [email or web address] 07/23/23 09:43 GM 07/23/23 09:32 Wound Center Nurse 2 #5 RLE edema -Time 09:41 -Correct Patient Yes -Correct Side, Site, Position Yes Pain Scale: 0-10 Numeric Is Patient Pain Free? Yes WC - Nurse 3 - General Ulcer D/C NN Start: 07/23/23 09:03 Freq: Status: Active Protocol: Activity Type Activity Date Activity User E-sign Co-sign Detail Recorded Client Recorded Date Recorded By Document 07/23/23 09:54 KW Desktop 07/23/23 09:54 KW 07/23/23 09:54 Wound Care Center Nurse 3 BLE -Multi-Layered Wrap Application Unna Boot - Bilateral ($) Pain Scale: 0-10 Numeric Is Patient Pain Free? Yes WC - Visit Discharge Discharge Condition Stable Ambulatory Status Ambulatory Transportation Private Auto Medication Reconcilliation completed & No provided to patient/care provider Clinical Summary of Care Provided Yes Lab / Micro Data Labs: Laboratory Results - last 24 hr 07/23/23 10:32: Prealbumin 17.8 L, TSH 2.99, Free T4 1.28, Free T3 pg/dL 2.2 Assessment/Plan Assessment/Plan (1) Debility: CODE(S): R53.81 - Other malaise (2) Osteoarthritis: CODE(S): M19.90 - Unspecified osteoarthritis, unspecified site QUALIFIERS: Osteoarthritis location: multiple joints Osteoarthritis type: primary Qualified Code(s): M15.9 - Polyosteoarthritis, unspecified (3) COPD (chronic obstructive pulmonary disease): CODE(S): J44.9 - Chronic obstructive pulmonary disease, unspecified QUALIFIERS: COPD type: unspecified COPD Qualified Code(s): J44.9 - Chronic obstructive pulmonary disease, unspecified (4) Edema of both lower extremities: CODE(S): R60.0 - Localized edema (5) Venous insufficiency: CODE(S): I87.2 - Venous insufficiency (chronic) (peripheral) (6) Chronic hypoxemic respiratory failure: CODE(S): J96.11 - Chronic respiratory failure with hypoxia (7) Pulmonary hypertension: CODE(S): I27.20 - Pulmonary hypertension, unspecified (8) Morbid obesity with BMI of 45.0-49.9, adult: CODE(S): E66.01 - Morbid (severe) obesity due to excess calories; Z68.42 -Body mass index [BMI] 45.0-49.9, adult (9) Lymphedema: CODE(S): I89.0 - Lymphedema, not elsewhere classified (10) Hypothyroidism: CODE(S): E03.9 - Hypothyroidism, unspecified QUALIFIERS: Hypothyroidism type: unspecified Qualified Code(s): E03.9 - Hypothyroidism, unspecified (11) Type 2 diabetes mellitus: CODE(S): E11.9 - Type 2 diabetes mellitus without complications QUALIFIERS: Diabetes mellitus residential insulin use: without residential use Diabetes mellitus complication status: with other specified complication Qualified Code(s): E11.69 - Type 2 diabetes mellitus with other specified complication (12) Chronic respiratory failure with hypoxia: CODE(S): J96.11 - Chronic respiratory failure with hypoxia (13) DOLORES (obstructive sleep apnea): CODE(S): G47.33 - Obstructive sleep apnea (adult) (pediatric) (14) Venous ulcer of right lower extremity without varicose veins: CODE(S): I87.2 - Venous insufficiency (chronic) (peripheral); L97.919 - Non- pressure chronic ulcer of unspecified part of right lower leg with unspecified severity PLAN: Plan Evaluation and examination performed today in clinic as annotated above. Chart reviewed for previous testing and history. At home wound-care instructions: Will try to improve her edema with compression using UNNA boots to bilateral LE. She has had theses and 3M dressings previously and tolerated them well. She was instructed to keep dressings clean and dry. Use a cast cover or sponge bath to avoid getting dressings wet. Off-loading: The patient was instructed to avoid pressure and friction on the affected areas. Reposition every 2 hours at minimum. Avoid prolonged standing and/or dangling of legs. When seated, feet should be elevated at chest level. Frequent ambulation is encouraged. Diet: Patient encouraged to increase protein intake while taking caution to avoid high carbohydrate and/or sugar intake. Encouraged weight loss. Labs/cultures/imaging: Check thyroid labs and pre-albumin. Will also add A1C. Recent renal function and CBC reviewed. Venous testing ordered to evaluate for possible recurrence of blood clots and to assess her for venous insufficiency progression to consider treatment with vascular surgery for ablation. Encouraged her to schedule follow up appointment with her PCP to discuss incontinence and diuretic management. Will contact [facility] in [place] to assist her in determining steps needed to get her a CPAP mask to improve DOLORES and pulmonary HTN treatment compliance which is adding to her decompensated lymphedema. Follow-up: Return in 1 week for wound care follow up. Return sooner or report to the emergency room should symptoms worsen, or new symptoms arise. Note: webtide speech recognition train control electronic technician software was used to create portions of this document. Sound-alike and misspelled words, as well as other train control electronic technician errors may be contained in the documentation. 07/23/23 1431 <Electronically signed by Sneha Rosa DO> Cosigner Signature (if applicable): CC: ~ Signed [facility] Work Phone: 1(107) 649-345904-21-2023 Progress note Author Molly Tripp [facility] October 09, 2022 3:55pm Note Date/Time October 09, 2022 3:5 5pm [facility] [address] [place] [address] Progress Note - Wound Care 10/09/22 1550 MR#: [id number] Acct: [id number] Name: LIZ WADSWORTH Rep #:[id number] : 1950 72 From: Molly BARBER PCP: Dr. Luis Cortés MD Status:R EG RCR Location: History of Present Illness Date of Service: 10/09/22 Chief Complaint: LLE wounds, bilateral lower extremity swelling History of Wound: Patient has been treated at the [facility] in the past for similar wounds, most recently February 2022. She is also known to me from the vascular surgery clinic where we evaluated her for BLE DVT and venous insufficiency. Patient was started on Eliquis for the provoked DVTs. Consistent measured compression was initiated as she had not previously worn compression between wound episodes. At that time, we did also discuss that should wounds recur, could consider GSV ablation. Patient's medical history is also significant for CHF, COPD, T2DM, lymphedema. She reports that she has not been taking her furosemide at all for a few weeks as she lost this month's supply. She states she has been wearing the compressionstockings but feels her swelling has been worse over the last couple of weeks and then these blisters appeared, ruptured, and turned into the superficial wounds she presents with today. Subjective Subjective Patient had taken 3M wraps off to shower yesterday evening, not wearing compression today. There has been overall reduction in her BLE swelling but fluctuating results week to week at this point. No erythema, drainage, new wounds, N/V, F/C. Objective Data Objective Data Vital Signs: Vital Signs Temp Pulse Resp BP O2 Del Method 97.8 F 84 18 167/93 H Room Air 10/09/22 13:11 10/09/22 13:11 10/09/22 13:11 10/09/22 13:11 10/06/22 09:14 Oxygen Delivery Method Room Air Weight: 314 lb 6 oz Body Mass Index (BMI) 50.7 Charges/Coding Visit Charges Office Visits / Consults: 41204 OV L3 Est Physical Exam Const alert, oriented x3 and no apparent distress General Appearance: cooperative HEENT normocephalic, head/scalp atraumatic, hearing grossly normal bilaterally, external ears normal and external nose normal Eyes EOMs intact bilaterally General Eye: normal appearance of both eyes Neck full ROM General: normal visual inspection and trachea midline Resp normal respiratory effort and no use of accessory muscles Effort and Inspection: able to speak in complete sentences and symmetric chest movement; Negative for labored, stridor or audible wheezes Extremity Extremity Narrative: significant bilateral lower extremity swelling with venous stasis dermatitis Neuro oriented x3, CN's II-XII intact bilaterally, moves all extremities and no focal motor deficits Psych mental status grossly normal Appearance: grossly normal Attitude: calm and engaged Activity / Motor Behavior: appropriate eye contact Speech: normal speech Mood & Affect: euthymic mood Attention / Concentration: attention grossly intact Memory / Cognition: memory grossly intact Debridement Note Debridement Note No debridement was completed: No debridement was completed today Post-Debridement Measurements and Additional Note: Post-Debridement Measurements/Treatment JESÚS - Nurse 1 - General Ulcer Assessment Start: 09/22/22 13:32 Freq: Status: Active Protocol: KELSEY Activity Type Activity Date Activity User E-sign Co-sign Detail Recorded Client Recorded Date Recorded By Document 09/22/22 13:32 MW [id number] 09/22/22 13:37 MW Document 09/25/22 13:41 JAREK [id number] 09/25/22 13:45 JF Document 09/29/22 14:05 DL [id number] 09/29/22 14:20 DL Document 10/02/22 13:35 RB [id number] 10/02/22 13:37 RB Document 10/06/22 09:14 MW [id number] 10/06/22 09:16 MW Document 10/09/22 13:11 PL [id number] 10/09/22 13:17 PL 09/22/22 09/25/22 09/29/22 13:32 13:41 14:05 WC - Today's Visit Information Type of service Nurse-only Follow-up Visit Nurse-only Visit (Physician/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 Visit ) Arrival Mode Crutches Ambulatory Ambulatory Transfer Assistance None None Accompanied by self Patient Identification Verified (Name & Yes Yes ) Patient Requires Transmission-Based No Yes No Precautions Safety Precautions NA NA Height and Weight Body Mass Index (BMI) 50.7 50.7 50.7 BMI Classification Obese Obese Obese Vital Signs Temperature (97.8 F-99.1 F) 95.6 F L 96.2 F L 97.4 F L Temperature Source Temporal Temporal Temporal Pulse Rate (60-100) 77 80 87 Pulse Location Monitor Monitor Monitor Respiratory Rate (12-18) 20 H 18 24 H Respiratory rate source Observation Observation Observation Oxygen Delivery Method Room Air Blood Pressure (90/60-120/80) 152/66 H 129/80 H 182/82 H Blood Pressure Mean (mm Hg) 94 96 115 Source Monitor Monitor Position Sitting Semi-Fowlers Blood Pressure Location Right Arm Left Forearm History Since Last Visit- (Skip if this is Patient's initial visit) Have you changed medications since your No No No last visit? Any new allergies or adverse reactions No No No Had a fall/change in ADL's that may No No No increase risk of falls Signs or symptoms of abuse and/or No No No neglect since last visit Have you been in the hospital since your No No No last visit? Has dressing in place as prescribed Yes Yes No Has compression in place as prescribed Yes Yes Yes Has offloadiing in place as prescribed N/A N/A N/A Experienced any changes in pain level or No No management Left Footwear Regular Shoe Regular Shoe Right Footwear Regular Shoe Regular Shoe Pain Scale: 0-10 Numeric Is Patient Pain Free? Yes Yes Yes 10/02/22 10/06/22 10/09/22 13:35 09:14 13:11 WC - Today's Visit Information Type of service Nurse-only Follow-up Visit Follow-up Visit Visit (Physician/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 (Physician/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 ) ) Arrival Mode Ambulatory Ambulatory Ambulatory Transfer Assistance None None None Accompanied by Patient Identification Verified (Name & Yes Yes Yes ) Patient Requires Transmission-Based No No No Precautions Safety Precautions NA NA Height and Weight Body Mass Index (BMI) 50.7 50.7 50.7 BMI Classification Obese Obese Obese Vital Signs Temperature (97.8 F-99.1 F) 97 F L 96.8 F L 97.8 F Temperature Source Temporal Temporal Temporal Pulse Rate (60-100) 74 86 84 Pulse Location Monitor Monitor Respiratory Rate (12-18) 18 20 H 18 Respiratory rate source Observation Observation Oxygen Delivery Method Room Air Blood Pressure (90/60-120/80) 152/62 H 157/85 H 167/93 H Blood Pressure Mean (mm Hg) 92 109 117 Source Monitor Monitor Position Semi-Fowlers Sitting Blood Pressure Location Left Arm Left Forearm History Since Last Visit- (Skip if this is Patient's initial visit) Have you changed medications since your No No No last visit? Any new allergies or adverse reactions No No No Had a fall/change in ADL's that may No No No increase risk of falls Signs or symptoms of abuse and/or No No No neglect since last visit Have you been in the hospital since your No No No last visit? Has dressing in place as prescribed Yes Yes Yes Has compression in place as prescribed Yes Yes Yes Has offloadiing in place as prescribed No N/A N/A Experienced any changes in pain level or No No No management Left Footwear Regular Shoe Right Footwear Regular Shoe Pain Scale: 0-10 Numeric Is Patient Pain Free? Yes Yes Yes - Nurse 1 - General Ulcer Measurement Start: 09/22/22 13:32 Freq: Status: Active Protocol: Activity Type Activity Date Activity User E-sign Co-sign Detail Recorded Client Recorded Date Recorded By Document 09/22/22 13:32 MW [id number] 09/22/22 13:37 MW Document 09/25/22 13:41 JF [id number] 09/25/22 13:45 JF Document 09/29/22 14:05 DL [id number] 09/29/22 14:20 DL Document 10/02/22 13:35 RB [id number] 10/02/22 13:37 RB Document 10/06/22 09:14 MW [id number] 10/06/22 09:16 MW Document 10/09/22 13:11 PL [id number] 10/09/22 13:17 PL 09/22/22 09/25/22 09/29/22 13:32 13:41 14:05 Wound Center Nurse 1 Lower Limb Edema Present Yes Yes Right Calf (cm) 50.5 46.2 46 Right Ankle (cm) 27.5 47.7 26.2 Left Calf (cm) 46.5 49.2 45.2 Left Ankle (cm) 28.0 27.5 26.7 10/02/22 10/06/22 10/09/22 13:35 09:14 13:11 Wound Center Nurse 1 Lower Limb Edema Present Yes Yes Right Calf (cm) 54 49.5 50.5 Right Ankle (cm) 26.5 27.6 32 Left Calf (cm) 51 55.0 50 Left Ankle (cm) 28 28.5 32 WC - Nurse 3 - General Ulcer D/C NN Start: 09/22/22 13:32 Freq: Status: Active Protocol: Activity Type Activity Date Activity User E-sign Co-sign Detail Recorded Client Recorded Date Recorded By Document 09/22/22 13:32 MW [id number] 09/22/22 13:37 MW Document 09/25/22 09:20 PL [id number] 09/28/22 09:20 PL Document 09/29/22 14:05 DL [id number] 09/29/22 14:20 DL Document 10/02/22 13:35 RB [id number] 10/02/22 13:37 RB Document 10/06/22 09:14 MW [id number] 10/06/22 09:16 MW Document 10/09/22 13:32 MT [id number] 10/09/22 13:33 MT 09/22/22 09/25/22 09/29/22 13:32 09:20 14:05 Vital Signs Temperature (97.8 F-99.1 F) 95.6 F L 97.4 F L Temperature Source Temporal Temporal Pulse Rate (60-100) 77 87 Pulse Location Monitor Monitor Respiratory Rate (12-18) 20 H 24 H Respiratory rate source Observation Observation Oxygen Delivery Method Room Air Blood Pressure (90/60-120/80) 152/66 H 182/82 H Blood Pressure Mean (mm Hg) 94 115 Source Monitor Position Sitting Blood Pressure Location Right Arm Pain Scale: 0-10 Numeric Is Patient Pain Free? Yes Yes Yes Wound Care Center Nurse 3 Bilateral LE -Lotion applied to leg before Yes Yes compression wrap -Multi-Layered Wrap Application Multi-Layer Multi-Layer Multi-Layer Comp - Bilat ($ Comp - Bilat ($ Comp - Bilat ($ ) ) ) -Tubular Bandage -Size of Tubigrip Used -Size E ($) Treatment Response Procedure Procedure Tolerated Well Tolerated Well WC - Visit Discharge Discharge Condition Stable Stable Ambulatory Status Ambulatory Ambulatory Transportation Private Auto Private Auto Accompanied by self Medication Reconcilliation completed & No provided to patient/care provider Clinical Summary of Care Provided Yes Notes: Removed old 3M2L wraps. Cleansed bilateral LE with soap/H2O. Patted dry. Lotion applies to lower extremities. Applied 3M 2L wraps bilateral as ordered. Tolerated well. 10/02/22 10/06/22 10/09/22 13:35 09:14 13:32 Vital Signs Temperature (97.8 F-99.1 F) 97 F L 96.8 F L Temperature Source Temporal Temporal Pulse Rate (60-100) 74 86 Pulse Location Monitor Monitor Respiratory Rate (12-18) 18 20 H Respiratory rate source Observation Observation Oxygen Delivery Method Room Air Blood Pressure (90/60-120/80) 152/62 H 157/85 H Blood Pressure Mean (mm Hg) 92 109 Source Monitor Monitor Position Semi-Fowlers Sitting Blood Pressure Location Left Arm Left Forearm Pain Scale: 0-10 Numeric Is Patient Pain Free? Yes Yes Yes Wound Care Center Nurse 3 Bilateral LE -Lotion applied to leg before Yes compression wrap -Multi-Layered Wrap Application Multi-Layer Multi-Layer Comp - Bilat ($ Comp - Bilat ($ ) ) -Tubular Bandage Double Layer -Size of Tubigrip Used Size E -Size E ($) 2 Treatment Response Procedure Procedure Tolerated Well Tolerated Well WC - Visit Discharge Discharge Condition Stable Stable Stable Ambulatory Status Ambulatory Ambulatory Ambulatory Transportation Private Auto Private Auto Private Auto Accompanied by Medication Reconcilliation completed & No No provided to patient/care provider Clinical Summary of Care Provided Yes Yes Yes Notes: pt was d/c home . Assessment/Plan Assessment/Plan (1) Non-pressure chronic ulcer left lower leg, limited to breakdown skin: CODE(S): L97.921 - Non-pressure chronic ulcer of unspecified part of left lower leg limited to breakdown of skin (2) DVT, bilateral lower limbs: CODE(S): I82.403 - Acute embolism and thrombosis of unspecified deep veinsof lower extremity, bilateral QUALIFIERS: Affected thrombotic vein of extremity: popliteal Chronicity: acute Qualified Code(s): I82.433 - Acute embolism and thrombosis ofpopliteal vein, bilateral (3) Lymphedema: CODE(S): I89.0 - Lymphedema, not elsewhere classified (4) Edema of both lower extremities: CODE(S): R60.0 - Localized edema PLAN: Plan Wounds have healed, now just managing patient's significant BLE edema which is multi-factorial with CHF, lymphedema, venous insufficiency, and post-thrombotic effects. Do not feel much more benefit to be gained from 3M wraps with respect to edema. Provided patient with order for compression stockings. Will do 18-25mmHg compression to help with ease of application, but will have patient apply two toeach leg for cumulative 30-40mmHg compression. I also advised patient to inquireabout donning assist devices. We discussed the importance of wearing compressionstockings daily so as to reduce risk of wound recurrence. Patient acknowledged understanding. Will give her double tubigrips to wear for the next few weeks until she obtains stockings. Also advise continuing to elevate feet whenever resting/sleeping. Patient is discharged from [facility]. Return as needed. 10/09/22 5226 <Electronically signed by Molly BARBER> Cosigner Signature (if applicable): CC: ~ Signed [facility] Work Phone: 1(742) 541-419104-07-2023 Progress note Author Molly Tripp [facility] September 25, 2022 2:20pm Note Date/Time September 25, 2022 2:20 pm [facility] [address] [place] [address] Progress Note - Wound Care 09/25/22 1417 MR#: [id number] Acct: [id number] Name: LIZ WADSWORTH Rep #:[id number] : 1950 72 From: Molly BARBER PCP: Dr. Luis Cortés MD Status:R EG RCR Location: History of Present Illness Date of Service: 09/25/22 Chief Complaint: LLE wounds, bilateral lower extremity swelling History of Wound: Patient has been treated at the [facility] in the past for similar wounds, most recently February 2022. She is also known to me from the vascular surgery clinic where we evaluated her for BLE DVT and venous insufficiency. Patient was started on Eliquis for the provoked DVTs. Consistent measured compression was initiated as she had not previously worn compression between wound episodes. At that time, we did also discuss that should wounds recur, could consider GSV ablation. Patient's medical history is also significant for CHF, COPD, T2DM, lymphedema. She reports that she has not been taking her furosemide at all for a few weeks as she lost this month's supply. She states she has been wearing the compressionstockings but feels her swelling has been worse over the last couple of weeks and then these blisters appeared, ruptured, and turned into the superficial wounds she presents with today. Subjective Subjective Patient continues to tolerate the 3M wraps and is showing some improvement in her swelling. No erythema, drainage, new wounds, N/V, F/C. Objective Data Objective Data Vital Signs: Vital Signs Temp Pulse Resp BP O2 Del Method 96.2 F L 80 18 129/80 H Room Air 09/25/22 13:41 09/25/22 13:41 09/25/22 13:41 09/25/22 13:41 09/22/22 13:32 Oxygen Delivery Method Room Air Weight: 314 lb 6 oz Body Mass Index (BMI) 50.7 Charges/Coding Multi Select Codes Visit Charges Office Visit/Consults: 24890 OV L3 Est Physical Exam Const alert, oriented x3 and no apparent distress General Appearance: cooperative HEENT normocephalic, head/scalp atraumatic, hearing grossly normal bilaterally, external ears normal and external nose normal Eyes EOMs intact bilaterally General Eye: normal appearance of both eyes Neck full ROM General: normal visual inspection and trachea midline Resp normal respiratory effort and no use of accessory muscles Effort and Inspection: able to speak in complete sentences and symmetric chest movement; Negative for labored, stridor or audible wheezes Extremity Extremity Narrative: significant bilateral lower extremity swelling with venous stasis dermatitis Neuro oriented x3, CN's II-XII intact bilaterally, moves all extremities and no focal motor deficits Psych mental status grossly normal Appearance: grossly normal Attitude: calm and engaged Activity / Motor Behavior: appropriate eye contact Speech: normal speech Mood & Affect: euthymic mood Attention / Concentration: attention grossly intact Memory / Cognition: memory grossly intact Debridement Note Debridement Note No debridement was completed: No debridement was completed today Post-Debridement Measurements and Additional Note: Post-Debridement Measurements/Treatment - Nurse 1 - General Ulcer Assessment Start: 09/22/22 13:32 Freq: Status: Active Protocol: JESÚS.JULIAN Activity Type Activity Date Activity User E-sign Co-sign Detail Recorded Client Recorded Date Recorded By Document 09/22/22 13:32 [id number] 09/22/22 13:37 Document 09/25/22 13:41 [id number] 09/25/22 13:45 09/22/22 09/25/22 13:32 13:41 - Today's Visit Information Type of service Nurse-only Follow-up Visit Visit (Physician/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 ) Arrival Mode Crutches Ambulatory Transfer Assistance None Accompanied by self Patient Identification Verified (Name & Yes ) Patient Requires Transmission-Based No Yes Precautions Safety Precautions NA NA Height and Weight Body Mass Index (BMI) 50.7 50.7 BMI Classification Obese Obese Vital Signs Temperature (97.8 F-99.1 F) 95.6 F L 96.2 F L Temperature Source Temporal Temporal Pulse Rate (60-100) 77 80 Pulse Location Monitor Monitor Respiratory Rate (12-18) 20 H 18 Respiratory rate source Observation Observation Oxygen Delivery Method Room Air Blood Pressure (90/60-120/80) 152/66 H 129/80 H Blood Pressure Mean (mm Hg) 94 96 Source Monitor Monitor Position Sitting Semi-Fowlers Blood Pressure Location Right Arm Left Forearm History Since Last Visit- (Skip if this is Patient's initial visit) Have you changed medications since your No No last visit? Any new allergies or adverse reactions No No Had a fall/change in ADL's that may No No increase risk of falls Signs or symptoms of abuse and/or No No neglect since last visit Have you been in the hospital since your No No last visit? Has dressing in place as prescribed Yes Yes Has compression in place as prescribed Yes Yes Has offloadiing in place as prescribed N/A N/A Experienced any changes in pain level or No No management Left Footwear Regular Shoe Regular Shoe Right Footwear Regular Shoe Regular Shoe Pain Scale: 0-10 Numeric Is Patient Pain Free? Yes Yes - Nurse 1 - General Ulcer Measurement Start: 09/22/22 13:32 Freq: Status: Active Protocol: Activity Type Activity Date Activity User E-sign Co-sign Detail Recorded Client Recorded Date Recorded By Document 09/22/22 13:32 MW [id number] 09/22/22 13:37 MW Document 09/25/22 13:41 [id number] 09/25/22 13:45 09/22/22 09/25/22 13:32 13:41 Wound Center Nurse 1 Lower Limb Edema Present Yes Yes Right Calf (cm) 50.5 46.2 Right Ankle (cm) 27.5 47.7 Left Calf (cm) 46.5 49.2 Left Ankle (cm) 28.0 27.5 - Nurse 3 - General Ulcer D/C NN Start: 09/22/22 13:32 Freq: Status: Active Protocol: Activity Type Activity Date Activity User E-sign Co-sign Detail Recorded Client Recorded Date Recorded By Document 09/22/22 13:32 MW [id number] 09/22/22 13:37 MW 09/22/22 13:32 Vital Signs Temperature (97.8 F-99.1 F) 95.6 F L Temperature Source Temporal Pulse Rate (60-100) 77 Pulse Location Monitor Respiratory Rate (12-18) 20 H Respiratory rate source Observation Oxygen Delivery Method Room Air Blood Pressure (90/60-120/80) 152/66 H Blood Pressure Mean (mm Hg) 94 Source Monitor Position Sitting Blood Pressure Location Right Arm Pain Scale: 0-10 Numeric Is Patient Pain Free? Yes Wound Care Center Nurse 3 Bilateral LE -Lotion applied to leg before Yes compression wrap -Multi-Layered Wrap Application Multi-Layer Comp - Bilat ($ ) Treatment Response Procedure Tolerated Well WC - Visit Discharge Discharge Condition Stable Ambulatory Status Ambulatory Transportation Private Auto Accompanied by self Medication Reconcilliation completed & No provided to patient/care provider Clinical Summary of Care Provided Yes Notes: Removed old 3M2L wraps. Cleansed bilateral LE with soap/H2O. Patted dry. Lotion applies to lower extremities. Applied 3M 2L wraps bilateral as ordered. Tolerated well. Assessment/Plan Assessment/Plan (1) Non-pressure chronic ulcer left lower leg, limited to breakdown skin: CODE(S): L97.921 - Non-pressure chronic ulcer of unspecified part of left lower leg limited to breakdown of skin (2) DVT, bilateral lower limbs: CODE(S): I82.403 - Acute embolism and thrombosis of unspecified deep veinsof lower extremity, bilateral QUALIFIERS: Affected thrombotic vein of extremity: popliteal Chronicity: acute Qualified Code(s): I82.433 - Acute embolism and thrombosis ofpopliteal vein, bilateral (3) Lymphedema: CODE(S): I89.0 - Lymphedema, not elsewhere classified (4) Edema of both lower extremities: CODE(S): R60.0 - Localized edema PLAN: Plan Wounds have healed, now just managing patient's significant BLE edema which is multi-factorial with CHF, lymphedema, venous insufficiency, and post-thrombotic effects. Continue to make small improvements with 3M wraps. Will continue with 3M wraps with goal of continuing to reduce edema to the pointpatient can maintain with compression stockings. Consistent, adequate compression indefinitely will be important to preventing wound recurrence. Continue to elevate her legs when resting and sleeping. Patient will return to [facility] for nurse visits to change wraps Fridays and Wednesday and will f/u with me in 2 weeks. 09/25/22 1420 <Electronically signed by Molly BARBER> Cosigner Signature (if applicable): CC: ~ Signed [facility] Work Phone: 1(407) 939-874203-24-2023 Progress note Author Molly Tripp [facility] September 11, 2022 1:30pm Note Date/Time September 11, 2022 1:3 0pm [facility] [address] [place] [address] Progress Note - Wound Care 09/11/22 1326 MR#: [id number] Acct: [id number] Name: LIZ WADSWORTH Rep #:[id number] : 1950 72 From: Molly BARBER PCP: Dr. Luis Cortés MD Status:R EG RCR Location: History of Present Illness Date of Service: 09/11/22 Chief Complaint: LLE wounds, bilateral lower extremity swelling History of Wound: Patient has been treated at the [facility] in the past for similar wounds, most recently February 2022. She is also known to me from the vascular surgery clinic where we evaluated her for BLE DVT and venous insufficiency. Patient was started on Eliquis for the provoked DVTs. Consistent measured compression was initiated as she had not previously worn compression between wound episodes. At that time, we did also discuss that should wounds recur, could consider GSV ablation. Patient's medical history is also significant for CHF, COPD, T2DM, lymphedema. She reports that she has not been taking her furosemide at all for a few weeks as she lost this month's supply. She states she has been wearing the compressionstockings but feels her swelling has been worse over the last couple of weeks and then these blisters appeared, ruptured, and turned into the superficial wounds she presents with today. Subjective Subjective Patient continues to tolerate the 3M wraps and is showing some improvement in her swelling. She was able to start her lasix again this week, taking BID. No erythema, drainage, new wound, N/V, F/C. Objective Data Objective Data Vital Signs: Vital Signs Temp Pulse Resp BP O2 Del Method 96.2 F L 72 18 150/60 H Room Air 09/11/22 12:59 09/08/22 13:24 09/11/22 12:59 09/11/22 12:59 09/04/22 11:23 Oxygen Delivery Method Room Air Weight: 314 lb 6 oz Body Mass Index (BMI) 50.7 Lab / Micro Data Micro: Microbiology 08/21/22 11:00 Wound Abcess - Leg, Left Gram Stain - Final 08/21/22 11:00 Wound Abcess - Leg, Left Wound Culture - Final Serratia marcescens Meth. resistant Staph. aureus 08/21/22 11:00 Wound Abcess - Leg, Left Anaerobic Culture - Final No anaerobic bacteria isolated. Charges/Coding Visit Charges Office Visits / Consults: 41428 OV L1 Est Physical Exam Const alert, oriented x3 and no apparent distress General Appearance: cooperative HEENT normocephalic, head/scalp atraumatic, hearing grossly normal bilaterally, external ears normal and external nose normal Eyes EOMs intact bilaterally General Eye: normal appearance of both eyes Neck full ROM General: normal visual inspection and trachea midline Resp normal respiratory effort, no use of accessory muscles and clear to auscultationbilaterally Effort and Inspection: able to speak in complete sentences and symmetric chest movement; Negative for labored, stridor or audible wheezes Auscultation: clear to auscultation bilaterally and diminished lung sounds Cardio regular rate and regular rhythm Peripheral Pulses: brachial pulses present and radial pulses present Extremity Extremity Narrative: Significant bilateral lower extremity edema. Normal capillary refill. Skin Skin Narrative: Bilateral venous stasis dermatitis Wounds: wounds noted Neuro oriented x3, CN's II-XII intact bilaterally, moves all extremities and no focal motor deficits Coordination / Balance: tandem gait normal Psych mental status grossly normal Appearance: grossly normal Attitude: calm and engaged Activity / Motor Behavior: appropriate eye contact Speech: normal speech Mood & Affect: euthymic mood Attention / Concentration: attention grossly intact Memory / Cognition: memory grossly intact Debridement Note Debridement Note No debridement was completed: No debridement was completed today Post-Debridement Measurements and Additional Note: Post-Debridement Measurements/Treatment JESÚS - Nurse 1 - General Ulcer Assessment Start: 08/21/22 10:46 Freq: Status: Active Protocol: KELSEY Activity Type Activity Date Activity User E-sign Co-sign Detail Recorded Client Recorded Date Recorded By Document 08/21/22 10:46 AK [id number] 08/21/22 10:49 AK Document 08/28/22 12:18 AK [id number] 08/28/22 12:22 AK Document 09/01/22 13:59 DL [id number] 09/01/22 14:09 DL Document 09/04/22 11:23 MT [id number] 09/04/22 11:43 MT Document 09/08/22 13:24 DL [id number] 09/08/22 13:42 DL Document 09/11/22 12:59 [id number] 09/11/22 13:08 08/21/22 08/28/22 09/01/22 10:46 12:18 13:59 - Today's Visit Information Type of service Follow-up Visit Follow-up Visit Nurse-only (Physician/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 (Physician/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 Visit ) ) Arrival Mode Ambulatory Ambulatory Ambulatory Transfer Assistance None Accompanied by Patient Identification Verified (Name & Yes Yes Yes ) Patient Requires Transmission-Based No No No Precautions Safety Precautions NA NA Height and Weight Body Mass Index (BMI) 50.7 50.7 50.7 BMI Classification Obese Obese Obese Vital Signs Temperature (97.8 F-99.1 F) 96.1 F L 97.4 F L Temperature Source Temporal Temporal Pulse Rate (60-100) 71 76 Pulse Location Monitor Monitor Respiratory Rate (12-18) 24 H Respiratory rate source Observation Oxygen Delivery Method Blood Pressure (90/60-120/80) 163/99 H 110/80 Blood Pressure Mean (mm Hg) 120 90 Source Monitor Monitor Position Blood Pressure Location History Since Last Visit- (Skip if this is Patient's initial visit) Have you changed medications since your No No No last visit? Any new allergies or adverse reactions No No No Had a fall/change in ADL's that may No No No increase risk of falls Signs or symptoms of abuse and/or No No No neglect since last visit Have you been in the hospital since your Yes No No last visit? Has dressing in place as prescribed No Yes No Has compression in place as prescribed N/A Yes Yes Has offloadiing in place as prescribed N/A N/A N/A Experienced any changes in pain level or No No Yes management Left Footwear Regular Shoe Regular Shoe Right Footwear Regular Shoe Regular Shoe Pain Scale: 0-10 Numeric Is Patient Pain Free? Yes No Yes 09/04/22 09/08/22 09/11/22 11:23 13:24 12:59 - Today's Visit Information Type of service Follow-up Visit Nurse-only Follow-up Visit (Physician/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 Visit (Physician/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 ) ) Arrival Mode Ambulatory Ambulatory Ambulatory Transfer Assistance None Accompanied by Patient Identification Verified (Name & Yes Yes ) Patient Requires Transmission-Based No No Precautions Safety Precautions Fall Prevention Height and Weight Body Mass Index (BMI) 50.7 50.7 50.7 BMI Classification Obese Obese Obese Vital Signs Temperature (97.8 F-99.1 F) 97 F L 96.3 F L 96.2 F L Temperature Source Temporal Temporal Temporal Pulse Rate (60-100) 82 72 Pulse Location Monitor Monitor Respiratory Rate (12-18) 18 20 H 18 Respiratory rate source Observation Observation Observation Oxygen Delivery Method Room Air Blood Pressure (90/60-120/80) 154/49 H 185/84 H 150/60 H Blood Pressure Mean (mm Hg) 84 117 90 Source Monitor Monitor Monitor Position Sitting Semi-Fowlers Blood Pressure Location Left Arm Right Forearm History Since Last Visit- (Skip if this is Patient's initial visit) Have you changed medications since your No No last visit? Any new allergies or adverse reactions No No Had a fall/change in ADL's that may No No increase risk of falls Signs or symptoms of abuse and/or No No neglect since last visit Have you been in the hospital since your No No last visit? Has dressing in place as prescribed Yes Yes Yes Has compression in place as prescribed Yes Yes Yes Has offloadiing in place as prescribed Yes N/A N/A Experienced any changes in pain level or Yes Yes No management Left Footwear Regular Shoe Regular Shoe Right Footwear Regular Shoe Regular Shoe Pain Scale: 0-10 Numeric Is Patient Pain Free? Yes Yes Yes WC - Nurse 1 - General Ulcer Measurement Start: 08/21/22 10:46 Freq: Status: Active Protocol: Activity Type Activity Date Activity User E-sign Co-sign Detail Recorded Client Recorded Date Recorded By Document 08/21/22 10:46 AK [id number] 08/21/22 10:49 AK Document 08/28/22 12:18 AK [id number] 08/28/22 12:22 AK Document 09/01/22 13:59 DL [id number] 09/01/22 14:09 DL Document 09/04/22 11:23 MT [id number] 09/04/22 11:43 MT Document 09/08/22 13:24 DL [id number] 09/08/22 13:42 DL Document 09/11/22 12:59 JF [id number] 09/11/22 13:08 JF 08/21/22 08/28/22 09/01/22 10:46 12:18 13:59 Wound Center Nurse 1 L lateral leg cluster -Combined with other wound No No -Current Size (cm) - Length 5 4 0.1 -Current Size (cm) - Width 3 5 0.1 -Current Size (cm) - Depth 0.1 0.1 -Total Square Cm 15 20 0.01 -Photo Taken Yes Yes -Tunneling No No -Undermining/Tunneling No No -Circular Undermining No No -Change in Wound Grade/Stage No No -Exudate Amt Medium Large None Present -Exudate Type Serosanguineous Purulent -Wound Margin Distinct, Flat & Intact Outline Attached -Granulation Amt None Present (0 None Present (0 Large (67-100%) %) %) -Granulation Quality N/A N/A [place] -Slough/Fibrin No No -Necrosis Amt None Present (0 None Present (0 None Present (0 %) %) %) -Structure Exposed N/A N/A N/A -Texture (Adrianna-wound Skin Appearance) No Abnormality, No Abnormality, LocalizedEdema Assessed Assessed -Moisture (Adrianna-wound Skin Appearance) Assessed,Dry/ Assessed, Scaly Weeping -Color (Adrianna-wound Skin Appearance) No Abnormality, No Abnormality, Hemosiderin Assessed Assessed Staining -Temperature (Adrianna-wound Skin No Abnormality No Abnormality No Abnormality Appearance) (Pt Warm) (Pt Warm) (Pt Warm) -Tenderness on Palpation (Adrianna-wound No No No Skin Appearance) -Ulcer Cleansing Rinsed/ Soap and Water Soap and Water Irrigated with Saline -Foul Odor after Cleansing No No No #4 L medial LE cluster -Combined with other wound No -Current Size (cm) - Length 0.2 0.1 -Current Size (cm) - Width 0.2 0.1 -Current Size (cm) - Depth 0.1 0.1 -Total Square Cm 0.04 0.01 -Photo Taken Yes -Tunneling No -Undermining/Tunneling No -Circular Undermining No -Change in Wound Grade/Stage No -Exudate Amt Small None Present -Exudate Type Serosanguineous -Wound Margin Distinct, Outline Attached -Granulation Amt Small (1-33%) Large (67-100%) -Granulation Quality N/A [place] -Slough/Fibrin No -Necrosis Amt None Present (0 None Present (0 %) %) -Structure Exposed N/A N/A -Texture (Adrianna-wound Skin Appearance) No Abnormality, Localized Edema Assessed -Moisture (Adrianna-wound Skin Appearance) Assessed, No Abnormality Maceration -Color (Adrianna-wound Skin Appearance) No Abnormality, Hemosiderin Assessed Staining -Temperature (Adrianna-wound Skin No Abnormality No Abnormality Appearance) (Pt Warm) (Pt Warm) -Tenderness on Palpation (Adrianna-wound No No Skin Appearance) -Ulcer Cleansing Rinsed/ Soap and Water Irrigated with Saline -Foul Odor after Cleansing No No -Anesthetic Used 5% Lidocaine Gel Lower Limb Edema Present No Right Calf (cm) 53 50 Point of measurement (cm from the medial instep) Right Ankle (cm) 30 27.5 Point of Measurement (cm from the medial instep) Left Calf (cm) 52.5 56 52.8 Point of measurement (cm from the medial instep) Left Ankle (cm) 28.5 29 28.5 Point of Measurement (cm from the medial instep) 09/04/22 09/08/22 09/11/22 11:23 13:24 12:59 Wound Center Nurse 1 L lateral leg cluster -Combined with other wound No -Current Size (cm) - Length 0 -Current Size (cm) - Width 0 -Current Size (cm) - Depth 0 -Total Square Cm 0 -Photo Taken Yes -Tunneling -Undermining/Tunneling -Circular Undermining -Change in Wound Grade/Stage -Exudate Amt -Exudate Type -Wound Margin -Granulation Amt -Granulation Quality -Slough/Fibrin -Necrosis Amt -Structure Exposed -Texture (Adrianna-wound Skin Appearance) No Abnormality -Moisture (Adrianna-wound Skin Appearance) No Abnormality -Color (Adrianna-wound Skin Appearance) No Abnormality -Temperature (Adrianna-wound Skin No Abnormality Appearance) (Pt Warm) -Tenderness on Palpation (Adrianna-wound No Skin Appearance) -Ulcer Cleansing Soap and Water -Foul Odor after Cleansing No #4 L medial LE cluster -Combined with other wound -Current Size (cm) - Length 0.1 -Current Size (cm) - Width 0.1 -Current Size (cm) - Depth 0.1 -Total Square Cm 0.01 -Photo Taken -Tunneling -Undermining/Tunneling -Circular Undermining -Change in Wound Grade/Stage -Exudate Amt -Exudate Type -Wound Margin -Granulation Amt -Granulation Quality -Slough/Fibrin -Necrosis Amt -Structure Exposed -Texture (Adrianna-wound Skin Appearance) Assessed, No Abnormality Localized Edema -Moisture (Adrianna-wound Skin Appearance) Assessed No Abnormality -Color (Adrianna-wound Skin Appearance) Assessed Assessed -Temperature (Adrianna-wound Skin No Abnormality No Abnormality Appearance) (Pt Warm) (Pt Warm) -Tenderness on Palpation (Adrianna-wound Skin Appearance) -Ulcer Cleansing Wound Cleanser Soap and Water -Foul Odor after Cleansing No -Anesthetic Used Lower Limb Edema Present Yes Right Calf (cm) 48 45.6 Point of measurement (cm from the medial 46 instep) Right Ankle (cm) 28.5 26.6 Point of Measurement (cm from the medial 26 instep) Left Calf (cm) 49 50.2 Point of measurement (cm from the medial 44.5 instep) Left Ankle (cm) 28.5 26.5 Point of Measurement (cm from the medial 26 instep) WC - Nurse 2 - General Ulcer CM Notes Start: 08/21/22 10:46 Freq: Status: Active Protocol: Activity Type Activity Date Activity User E-sign Co-sign Detail Recorded Client Recorded Date Recorded By Document 08/21/22 12:40 PL [id number] 08/21/22 12:42 PL 08/21/22 12:40 Wound Center Nurse 2 L lateral leg cluster -Time 10:55 -Correct Patient Yes -Correct Side, Site, Position Yes -Correct Procedure Yes -Procedure Performed Yes -Type of Procedure Debridement -Clinical Debridement Subcutaneous -Tissue Removed Epidermis, Dermis, Subcutaneous -Post Debridement (cm) - Length 5.0 -Post Debridement (cm) - Width 3.0 -Post Debridement (cm) - Depth 0.1 -Total Square (Post) (cm) 15.00 -Area of Debridement (cm) - Length 5.0 -Area of Debridement (cm) - Width 3.0 -Total Square (Area) (cm) 15.00 -Tunneling No -Undermining/Tunneling No -Circular Undermining No -Wound/Ulcer Outcome Not Healed -Ulcer Cleansing Rinsed/ Irrigated with Saline -Foul Odor after Cleansing No -Bioengineered Tissue No -Bleeding Controlled with Pressure -Treatment Response Procedure Tolerated Well -Debridement - Subq, 1st 20sq cm No #4 L medial LE cluster -Time 10:55 -Correct Patient Yes -Correct Side, Site, Position Yes -Correct Procedure Yes -Procedure Performed Yes -Type of Procedure Debridement -Clinical Debridement Subcutaneous -Tissue Removed Subcutaneous -Post Debridement (cm) - Length 0.2 -Post Debridement (cm) - Width 0.2 -Post Debridement (cm) - Depth 0.1 -Total Square (Post) (cm) 0.04 -Area of Debridement (cm) - Length 0.2 -Area of Debridement (cm) - Width 0.2 -Total Square (Area) (cm) 0.04 -Tunneling No -Undermining/Tunneling No -Circular Undermining No -Wound/Ulcer Outcome Not Healed -Ulcer Cleansing Rinsed/ Irrigated with Saline -Foul Odor after Cleansing No -Bioengineered Tissue No -Debridement - Subq, 1st 20sq cm Yes Pain Scale: 0-10 Numeric Is Patient Pain Free? Yes WC - Nurse 3 - General Ulcer D/C NN Start: 08/21/22 10:46 Freq: Status: Active Protocol: Activity Type Activity Date Activity User E-sign Co-sign Detail Recorded Client Recorded Date Recorded By Document 08/21/22 11:29 MT [id number] 08/21/22 11:34 MT Document 08/28/22 12:18 AK [id number] 08/28/22 12:22 AK Document 09/01/22 13:59 DL [id number] 09/01/22 14:09 DL Document 09/04/22 12:01 MT [id number] 09/04/22 12:02 MT Document 09/08/22 13:24 DL [id number] 09/08/22 13:42 DL 08/21/22 08/28/22 09/01/22 11:29 12:18 13:59 Wound Care Center Nurse 3 L lateral leg cluster -Ulcer Cleansing Rinsed/ Soap and Water Irrigated with Saline -Foul Odor after Cleansing No -Negative Pressure Wound Therapy N/A -Primary Dressing Applied Optilok 8x12 -Primary Dressing Covered/Secured with -Optilok 8x12 1 #4 L medial LE cluster -Ulcer Cleansing Rinsed/ Irrigated with Saline -Primary Dressing Applied Optilok 8x12 -Other Dressing kerlix -Primary Dressing Covered/Secured with Dry Gauze, Secured with Tape -Optilok 8x12 1 luke -Lotion applied to leg before Yes compression wrap -Multi-Layered Wrap Application Multi-Layer Multi-Layer Comp - Bilat ($ Comp - Bilat ($ ) ) Right -Tubular Bandage Double Layer -Size of Tubigrip Used Size F -Size F ($) 2 Left -Tubular Bandage Double Layer -Size of Tubigrip Used Size F -Size F ($) 2 Treatment Response Procedure Tolerated Well Vital Signs Temperature (97.8 F-99.1 F) 96.1 F L 97.4 F L Temperature Source Temporal Temporal Pulse Rate (60-100) 71 76 Pulse Location Monitor Monitor Respiratory Rate (12-18) 24 H Respiratory rate source Observation Blood Pressure (90/60-120/80) 163/99 H 110/80 Blood Pressure Mean (mm Hg) 120 90 Source Monitor Monitor Pain Scale: 0-10 Numeric Is Patient Pain Free? Yes No Yes WC - Visit Discharge Discharge Condition Stable Stable Stable Ambulatory Status Steady Ambulatory Ambulatory Transportation Private Auto Private Auto Private Auto Accompanied by Medication Reconcilliation completed & No Yes provided to patient/care provider Clinical Summary of Care Provided Yes Yes Notes: pt and Pt arrived for verbalized NV. 3M intact, understanding no drainage how to change noted to LLE. dressing. I Pt states that demonstrated she has more how to properly swelling above place her knees in tubigribs on. the last day or pt and so. Denies any verbalized SOB from understanding swelling, D/T how to put CHF. States tubigribs on. not any worse that normal Checked with CNM, ok to reapply 3M today. Pt instructed to remove compression and go to ER if she gets SOB. Facility Type Home Health Orders Sent Yes 09/04/22 09/08/22 12:01 13:24 Wound Care Center Nurse 3 L lateral leg cluster -Ulcer Cleansing lotion -Foul Odor after Cleansing -Negative Pressure Wound Therapy -Primary Dressing Applied -Primary Dressing Covered/Secured with Dry Gauze, Secured with Tape -Optilok 8x12 #4 L medial LE cluster -Ulcer Cleansing -Primary Dressing Applied -Other Dressing -Primary Dressing Covered/Secured with -Optilok 8x12 luke -Lotion applied to leg before compression wrap -Multi-Layered Wrap Application Multi-Layer Multi-Layer Comp - Bilat ($ Comp - Bilat ($ ) ) Right -Tubular Bandage -Size of Tubigrip Used -Size F ($) Left -Tubular Bandage -Size of Tubigrip Used -Size F ($) Treatment Response Procedure Tolerated Well Vital Signs Temperature (97.8 F-99.1 F) 96.3 F L Temperature Source Temporal Pulse Rate (60-100) 72 Pulse Location Monitor Respiratory Rate (12-18) 20 H Respiratory rate source Observation Blood Pressure (90/60-120/80) 185/84 H Blood Pressure Mean (mm Hg) 117 Source Monitor Pain Scale: 0-10 Numeric Is Patient Pain Free? Yes Yes WC - Visit Discharge Discharge Condition Stable Ambulatory Status Ambulatory Transportation Private Auto Accompanied by Medication Reconcilliation completed & provided to patient/care provider Clinical Summary of Care Provided Notes: Facility Type Orders Sent Assessment/Plan Assessment/Plan (1) Non-pressure chronic ulcer left lower leg, limited to breakdown skin: CODE(S): L97.921 - Non-pressure chronic ulcer of unspecified part of left lower leg limited to breakdown of skin (2) DVT, bilateral lower limbs: CODE(S): I82.403 - Acute embolism and thrombosis of unspecified deep veinsof lower extremity, bilateral QUALIFIERS: Affected thrombotic vein of extremity: popliteal Chronicity: acute Qualified Code(s): I82.433 - Acute embolism and thrombosis ofpopliteal vein, bilateral (3) Lymphedema: CODE(S): I89.0 - Lymphedema, not elsewhere classified (4) Edema of both lower extremities: CODE(S): R60.0 - Localized edema PLAN: Plan Wounds have healed, now just managing patient's significant BLE edema which is multi-factorial with CHF, lymphedema, venous insufficiency, and post-thrombotic effects. Small improvements being made with 3M wraps. Patient just started lasixagain this week as prescribed/monitored by PCP. Will continue with 3M wraps with goal of continuing to reduce edema to the pointpatient can maintain with compression stockings. Consistent, adequate compression indefinitely will be important to preventing wound recurrence. May consider lymphedema pumps. Continue to elevate her legs when resting and sleeping. Patient will return to [facility] for nurse visits to change wraps Fridays and Wednesday and will f/u with me in 2 weeks. 09/11/22 1330 <Electronically signed by Molly BARBER> Cosigner Signature (if applicable): CC: ~ Signed [facility] Work Phone: [phone] Progress note Author Molly Tripp [facility] September 04, 2022 12:14pm Note Date/Time September 04, 2022 12: 14pm [facility] [address] [place] [address] Progress Note - Wound Care 09/04/22 1208 MR#: [id number] Acct: [id number] Name: LIZ WADSWORTH Rep #:[id number] : 1950 72 From: Molly BARBER PCP: Dr. Luis Cortés MD Status:R EG RCR Location: History of Present Illness Date of Service: 09/04/22 Chief Complaint: LLE wounds, bilateral lower extremity swelling History of Wound: Patient has been treated at the [facility] in the past for similar wounds, most recently February 2022. She is also known to me from the vascular surgery clinic where we evaluated her for BLE DVT and venous insufficiency. Patient was started on Eliquis for the provoked DVTs. Consistent measured compression was initiated as she had not previously worn compression between wound episodes. At that time, we did also discuss that should wounds recur, could consider GSV ablation. Patient's medical history is also significant for CHF, COPD, T2DM, lymphedema. She reports that she has not been taking her furosemide at all for a few weeks as she lost this month's supply. She states she has been wearing the compressionstockings but feels her swelling has been worse over the last couple of weeks and then these blisters appeared, ruptured, and turned into the superficial wounds she presents with today. Subjective Subjective Patient did very well with 3M wraps this week, feels swelling is somewhat improved. She was able to start the Bactrim I had prescribed and has been takingit without issue. She does have an appt with her PCP today to discuss lasix. Shedenies new/worsening pain, F/C, N/V, worsened erythema, weeping. The superficialwounds she had have healed, LLE with overall improved appearance. Objective Data Objective Data Vital Signs: Vital Signs Temp Pulse Resp BP O2 Del Method 97 F L 82 18 154/49 H Room Air 03/17/23 11:23 09/04/22 11:23 09/04/22 11:23 09/04/22 11:23 09/04/22 11:23 Oxygen Delivery Method Room Air Weight: 314 lb 6 oz Body Mass Index (BMI) 50.7 Lab / Micro Data Micro: Microbiology 08/21/22 11:00 Wound Abcess - Leg, Left Gram Stain - Final 08/21/22 11:00 Wound Abcess - Leg, Left Wound Culture - Final Serratia marcescens Meth. resistant Staph. aureus 08/21/22 11:00 Wound Abcess - Leg, Left Anaerobic Culture - Final No anaerobic bacteria isolated. Charges/Coding Visit Charges Office Visits / Consults: 35200 OV L1 Est Physical Exam Const alert, oriented x3 and no apparent distress General Appearance: cooperative HEENT normocephalic, head/scalp atraumatic, hearing grossly normal bilaterally, external ears normal and external nose normal Eyes EOMs intact bilaterally General Eye: normal appearance of both eyes Neck full ROM General: normal visual inspection and trachea midline Resp normal respiratory effort, no use of accessory muscles and clear to auscultationbilaterally Effort and Inspection: able to speak in complete sentences and symmetric chest movement; Negative for labored, stridor or audible wheezes Auscultation: clear to auscultation bilaterally and diminished lung sounds Cardio regular rate and regular rhythm Peripheral Pulses: brachial pulses present and radial pulses present Extremity Extremity Narrative: Significant bilateral lower extremity edema. Normal capillary refill. Skin Skin Narrative: Bilateral venous stasis dermatitis, scattered fluid-filled blisters. Wounds: wounds noted Wound Narrative: Cluster of superficial wounds on lateral and medial aspect of left lower leg. Irregularly shaped, some maceration of periwound skin. Significant amount of serous drainage noted. No new wounds. LLE erythematous and warmer compared to RLE, increased tenderness to palpation in LLE. Neuro oriented x3, CN's II-XII intact bilaterally, moves all extremities and no focal motor deficits Coordination / Balance: tandem gait normal Psych mental status grossly normal Appearance: grossly normal Attitude: calm and engaged Activity / Motor Behavior: appropriate eye contact Speech: normal speech Mood & Affect: euthymic mood Attention / Concentration: attention grossly intact Memory / Cognition: memory grossly intact Debridement Note Debridement Note Wound debrided: LLE wounds healed No debridement was completed: No debridement was completed today Post-Debridement Measurements and Additional Note: Post-Debridement Measurements/Treatment WC - Nurse 1 - General Ulcer Assessment Start: 08/21/22 10:46 Freq: Status: Active Protocol: KELSEY Activity Type Activity Date Activity User E-sign Co-sign Detail Recorded Client Recorded Date Recorded By Document 08/21/22 10:46 AK [id number] 08/21/22 10:49 AK Document 08/28/22 12:18 AK [id number] 08/28/22 12:22 AK Document 09/01/22 13:59 DL [id number] 09/01/22 14:09 DL Document 09/04/22 11:23 MT [id number] 09/04/22 11:43 MT 08/21/22 08/28/22 09/01/22 10:46 12:18 13:59 WC - Today's Visit Information Type of service Follow-up Visit Follow-up Visit Nurse-only (Physician/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 (Physician/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 Visit ) ) Arrival Mode Ambulatory Ambulatory Ambulatory Transfer Assistance None Accompanied by Patient Identification Verified (Name & Yes Yes Yes ) Patient Requires Transmission-Based No No No Precautions Safety Precautions NA NA Height and Weight Body Mass Index (BMI) 50.7 50.7 50.7 BMI Classification Obese Obese Obese Vital Signs Temperature (97.8 F-99.1 F) 96.1 F L 97.4 F L Temperature Source Temporal Temporal Pulse Rate (60-100) 71 76 Pulse Location Monitor Monitor Respiratory Rate (12-18) 24 H Respiratory rate source Observation Oxygen Delivery Method Blood Pressure (90/60-120/80) 163/99 H 110/80 Blood Pressure Mean (mm Hg) 120 90 Source Monitor Monitor Position Blood Pressure Location History Since Last Visit- (Skip if this is Patient's initial visit) Have you changed medications since your No No No last visit? Any new allergies or adverse reactions No No No Had a fall/change in ADL's that may No No No increase risk of falls Signs or symptoms of abuse and/or No No No neglect since last visit Have you been in the hospital since your Yes No No last visit? Has dressing in place as prescribed No Yes No Has compression in place as prescribed N/A Yes Yes Has offloadiing in place as prescribed N/A N/A N/A Experienced any changes in pain level or No No Yes management Left Footwear Regular Shoe Regular Shoe Right Footwear Regular Shoe Regular Shoe Pain Scale: 0-10 Numeric Is Patient Pain Free? Yes No Yes 09/04/22 11:23 WC - Today's Visit Information Type of service Follow-up Visit (Physician/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 ) Arrival Mode Ambulatory Transfer Assistance Accompanied by Patient Identification Verified (Name & Yes ) Patient Requires Transmission-Based Precautions Safety Precautions Fall Prevention Height and Weight Body Mass Index (BMI) 50.7 BMI Classification Obese Vital Signs Temperature (97.8 F-99.1 F) 97 F L Temperature Source Temporal Pulse Rate (60-100) 82 Pulse Location Monitor Respiratory Rate (12-18) 18 Respiratory rate source Observation Oxygen Delivery Method Room Air Blood Pressure (90/60-120/80) 154/49 H Blood Pressure Mean (mm Hg) 84 Source Monitor Position Sitting Blood Pressure Location Left Arm History Since Last Visit- (Skip if this is Patient's initial visit) Have you changed medications since your last visit? Any new allergies or adverse reactions Had a fall/change in ADL's that may increase risk of falls Signs or symptoms of abuse and/or neglect since last visit Have you been in the hospital since your last visit? Has dressing in place as prescribed Yes Has compression in place as prescribed Yes Has offloadiing in place as prescribed Yes Experienced any changes in pain level or Yes management Left Footwear Regular Shoe Right Footwear Regular Shoe Pain Scale: 0-10 Numeric Is Patient Pain Free? Yes - Nurse 1 - General Ulcer Measurement Start: 08/21/22 10:46 Freq: Status: Active Protocol: Activity Type Activity Date Activity User E-sign Co-sign Detail Recorded Client Recorded Date Recorded By Document 08/21/22 10:46 AK [id number] 08/21/22 10:49 AK Document 08/28/22 12:18 AK [id number] 08/28/22 12:22 AK Document 09/01/22 13:59 DL [id number] 09/01/22 14:09 DL Document 09/04/22 11:23 OK [id number] 09/04/22 11:43 MT 08/21/22 08/28/22 09/01/22 10:46 12:18 13:59 Wound Center Nurse 1 L lateral leg cluster -Combined with other wound No No -Current Size (cm) - Length 5 4 0.1 -Current Size (cm) - Width 3 5 0.1 -Current Size (cm) - Depth 0.1 0.1 -Total Square Cm 15 20 0.01 -Photo Taken Yes Yes -Tunneling No No -Undermining/Tunneling No No -Circular Undermining No No -Change in Wound Grade/Stage No No -Exudate Amt Medium Large None Present -Exudate Type Serosanguineous Purulent -Wound Margin Distinct, Flat & Intact Outline Attached -Granulation Amt None Present (0 None Present (0 Large (67-100%) %) %) -Granulation Quality N/A N/A [place] -Slough/Fibrin No No -Necrosis Amt None Present (0 None Present (0 None Present (0 %) %) %) -Structure Exposed N/A N/A N/A -Texture (Adrianna-wound Skin Appearance) No Abnormality, No Abnormality, LocalizedEdema Assessed Assessed -Moisture (Adrianna-wound Skin Appearance) Assessed,Dry/ Assessed, Scaly Weeping -Color (Adrianna-wound Skin Appearance) No Abnormality, No Abnormality, Hemosiderin Assessed Assessed Staining -Temperature (Adrianna-wound Skin No Abnormality No Abnormality No Abnormality Appearance) (Pt Warm) (Pt Warm) (Pt Warm) -Tenderness on Palpation (Adrianna-wound No No No Skin Appearance) -Ulcer Cleansing Rinsed/ Soap and Water Soap and Water Irrigated with Saline -Foul Odor after Cleansing No No No #4 L medial LE cluster -Combined with other wound No -Current Size (cm) - Length 0.2 0.1 -Current Size (cm) - Width 0.2 0.1 -Current Size (cm) - Depth 0.1 0.1 -Total Square Cm 0.04 0.01 -Photo Taken Yes -Tunneling No -Undermining/Tunneling No -Circular Undermining No -Change in Wound Grade/Stage No -Exudate Amt Small None Present -Exudate Type Serosanguineous -Wound Margin Distinct, Outline Attached -Granulation Amt Small (1-33%) Large (67-100%) -Granulation Quality N/A [place] -Slough/Fibrin No -Necrosis Amt None Present (0 None Present (0 %) %) -Structure Exposed N/A N/A -Texture (Adrianna-wound Skin Appearance) No Abnormality, Localized Edema Assessed -Moisture (Adrianna-wound Skin Appearance) Assessed, No Abnormality Maceration -Color (Adrianna-wound Skin Appearance) No Abnormality, Hemosiderin Assessed Staining -Temperature (Adrianna-wound Skin No Abnormality No Abnormality Appearance) (Pt Warm) (Pt Warm) -Tenderness on Palpation (Adrianna-wound No No Skin Appearance) -Ulcer Cleansing Rinsed/ Soap and Water Irrigated with Saline -Foul Odor after Cleansing No No -Anesthetic Used 5% Lidocaine Gel Lower Limb Edema Present No Right Calf (cm) 53 50 Right Ankle (cm) 30 27.5 Left Calf (cm) 52.5 56 52.8 Left Ankle (cm) 28.5 29 28.5 09/04/22 11:23 Wound Center Nurse 1 L lateral leg cluster -Combined with other wound -Current Size (cm) - Length -Current Size (cm) - Width -Current Size (cm) - Depth -Total Square Cm -Photo Taken -Tunneling -Undermining/Tunneling -Circular Undermining -Change in Wound Grade/Stage -Exudate Amt -Exudate Type -Wound Margin -Granulation Amt -Granulation Quality -Slough/Fibrin -Necrosis Amt -Structure Exposed -Texture (Adrianna-wound Skin Appearance) -Moisture (Adrianna-wound Skin Appearance) -Color (Adrianna-wound Skin Appearance) -Temperature (Adrianna-wound Skin Appearance) -Tenderness on Palpation (Adrianna-wound Skin Appearance) -Ulcer Cleansing -Foul Odor after Cleansing #4 L medial LE cluster -Combined with other wound -Current Size (cm) - Length 0.1 -Current Size (cm) - Width 0.1 -Current Size (cm) - Depth 0.1 -Total Square Cm 0.01 -Photo Taken -Tunneling -Undermining/Tunneling -Circular Undermining -Change in Wound Grade/Stage -Exudate Amt -Exudate Type -Wound Margin -Granulation Amt -Granulation Quality -Slough/Fibrin -Necrosis Amt -Structure Exposed -Texture (Adrianna-wound Skin Appearance) Assessed, Localized Edema -Moisture (Adrianna-wound Skin Appearance) Assessed -Color (Adrianna-wound Skin Appearance) Assessed -Temperature (Adrianna-wound Skin No Abnormality Appearance) (Pt Warm) -Tenderness on Palpation (Adrianna-wound Skin Appearance) -Ulcer Cleansing Wound Cleanser -Foul Odor after Cleansing No -Anesthetic Used Lower Limb Edema Present Right Calf (cm) 48 Right Ankle (cm) 28.5 Left Calf (cm) 49 Left Ankle (cm) 28.5 WC - Nurse 2 - General Ulcer CM Notes Start: 08/21/22 10:46 Freq: Status: Active Protocol: Activity Type Activity Date Activity User E-sign Co-sign Detail Recorded Client Recorded Date Recorded By Document 08/21/22 12:40 PL [id number] 08/21/22 12:42 PL 08/21/22 12:40 Wound Center Nurse 2 L lateral leg cluster -Time 10:55 -Correct Patient Yes -Correct Side, Site, Position Yes -Correct Procedure Yes -Procedure Performed Yes -Type of Procedure Debridement -Clinical Debridement Subcutaneous -Tissue Removed Epidermis, Dermis, Subcutaneous -Post Debridement (cm) - Length 5.0 -Post Debridement (cm) - Width 3.0 -Post Debridement (cm) - Depth 0.1 -Total Square (Post) (cm) 15.00 -Area of Debridement (cm) - Length 5.0 -Area of Debridement (cm) - Width 3.0 -Total Square (Area) (cm) 15.00 -Tunneling No -Undermining/Tunneling No -Circular Undermining No -Wound/Ulcer Outcome Not Healed -Ulcer Cleansing Rinsed/ Irrigated with Saline -Foul Odor after Cleansing No -Bioengineered Tissue No -Bleeding Controlled with Pressure -Treatment Response Procedure Tolerated Well -Debridement - Subq, 1st 20sq cm No #4 L medial LE cluster -Time 10:55 -Correct Patient Yes -Correct Side, Site, Position Yes -Correct Procedure Yes -Procedure Performed Yes -Type of Procedure Debridement -Clinical Debridement Subcutaneous -Tissue Removed Subcutaneous -Post Debridement (cm) - Length 0.2 -Post Debridement (cm) - Width 0.2 -Post Debridement (cm) - Depth 0.1 -Total Square (Post) (cm) 0.04 -Area of Debridement (cm) - Length 0.2 -Area of Debridement (cm) - Width 0.2 -Total Square (Area) (cm) 0.04 -Tunneling No -Undermining/Tunneling No -Circular Undermining No -Wound/Ulcer Outcome Not Healed -Ulcer Cleansing Rinsed/ Irrigated with Saline -Foul Odor after Cleansing No -Bioengineered Tissue No -Debridement - Subq, 1st 20sq cm Yes Pain Scale: 0-10 Numeric Is Patient Pain Free? Yes WC - Nurse 3 - General Ulcer D/C NN Start: 08/21/22 10:46 Freq: Status: Active Protocol: Activity Type Activity Date Activity User E-sign Co-sign Detail Recorded Client Recorded Date Recorded By Document 08/21/22 11:29 MT [id number] 08/21/22 11:34 MT Document 08/28/22 12:18 AK [id number] 08/28/22 12:22 AK Document 09/01/22 13:59 DL [id number] 09/01/22 14:09 DL Document 09/04/22 12:01 OK [id number] 09/04/22 12:02 MT 08/21/22 08/28/22 09/01/22 11:29 12:18 13:59 Wound Care Center Nurse 3 L lateral leg cluster -Ulcer Cleansing Rinsed/ Soap and Water Irrigated with Saline -Foul Odor after Cleansing No -Negative Pressure Wound Therapy N/A -Primary Dressing Applied Optilok 8x12 -Primary Dressing Covered/Secured with -Optilok 8x12 1 #4 L medial LE cluster -Ulcer Cleansing Rinsed/ Irrigated with Saline -Primary Dressing Applied Optilok 8x12 -Other Dressing kerlix -Primary Dressing Covered/Secured with Dry Gauze, Secured with Tape -Optilok 8x12 1 luke -Lotion applied to leg before Yes compression wrap -Multi-Layered Wrap Application Multi-Layer Multi-Layer Comp - Bilat ($ Comp - Bilat ($ ) ) Right -Tubular Bandage Double Layer -Size of Tubigrip Used Size F -Size F ($) 2 Left -Tubular Bandage Double Layer -Size of Tubigrip Used Size F -Size F ($) 2 Treatment Response Procedure Tolerated Well Vital Signs Temperature (97.8 F-99.1 F) 96.1 F L 97.4 F L Temperature Source Temporal Temporal Pulse Rate (60-100) 71 76 Pulse Location Monitor Monitor Respiratory Rate (12-18) 24 H Respiratory rate source Observation Blood Pressure (90/60-120/80) 163/99 H 110/80 Blood Pressure Mean (mm Hg) 120 90 Source Monitor Monitor Pain Scale: 0-10 Numeric Is Patient Pain Free? Yes No Yes WC - Visit Discharge Discharge Condition Stable Stable Stable Ambulatory Status Steady Ambulatory Ambulatory Transportation Private Auto Private Auto Private Auto Accompanied by Medication Reconcilliation completed & No Yes provided to patient/care provider Clinical Summary of Care Provided Yes Yes Notes: pt and Pt arrived for verbalized NV. 3M intact, understanding no drainage how to change noted to LLE. dressing. I Pt states that demonstrated she has more how to properly swelling above place her knees in tubigribs on. the last day or pt and so. Denies any verbalized SOB from understanding swelling, D/T how to put CHF. States tubigribs on. not any worse that normal Checked with CNM, ok to reapply 3M today. Pt instructed to remove compression and go to ER if she gets SOB. Facility Type Home Health Orders Sent Yes 09/04/22 12:01 Wound Care Center Nurse 3 L lateral leg cluster -Ulcer Cleansing lotion -Foul Odor after Cleansing -Negative Pressure Wound Therapy -Primary Dressing Applied -Primary Dressing Covered/Secured with Dry Gauze, Secured with Tape -Optilok 8x12 #4 L medial LE cluster -Ulcer Cleansing -Primary Dressing Applied -Other Dressing -Primary Dressing Covered/Secured with -Optilok 8x12 luke -Lotion applied to leg before compression wrap -Multi-Layered Wrap Application Multi-Layer Comp - Bilat ($ ) Right -Tubular Bandage -Size of Tubigrip Used -Size F ($) Left -Tubular Bandage -Size of Tubigrip Used -Size F ($) Treatment Response Vital Signs Temperature (97.8 F-99.1 F) Temperature Source Pulse Rate (60-100) Pulse Location Respiratory Rate (12-18) Respiratory rate source Blood Pressure (90/60-120/80) Blood Pressure Mean (mm Hg) Source Pain Scale: 0-10 Numeric Is Patient Pain Free? Yes WC - Visit Discharge Discharge Condition Ambulatory Status Transportation Accompanied by Medication Reconcilliation completed & provided to patient/care provider Clinical Summary of Care Provided Notes: Facility Type Orders Sent Assessment/Plan Assessment/Plan (1) Non-pressure chronic ulcer left lower leg, limited to breakdown skin: CODE(S): L97.921 - Non-pressure chronic ulcer of unspecified part of left lower leg limited to breakdown of skin (2) DVT, bilateral lower limbs: CODE(S): I82.403 - Acute embolism and thrombosis of unspecified deep veinsof lower extremity, bilateral QUALIFIERS: Affected thrombotic vein of extremity: popliteal Chronicity: acute Qualified Code(s): I82.433 - Acute embolism and thrombosis ofpopliteal vein, bilateral (3) Lymphedema: CODE(S): I89.0 - Lymphedema, not elsewhere classified (4) Edema of both lower extremities: CODE(S): R60.0 - Localized edema PLAN: Plan Patient's LLE wounds have healed. LLE overall significantly less erythematous and no longer TTP. Bilateral lower extremity edema seems to be multi-factorial with CHF, lymphedema, venous insufficiency, and post-thrombotic effects. Some improvement made with 3M compression. Will continue with 3M wraps with goal of continuing to reduce edema to the pointpatient can maintain with compression stockings. Consistent, adequate compression indefinitely will be important to preventing wound recurrence. Continue to elevate her legs when resting. Patient will return to [facility] in 1 week or sooner as needed. 09/04/22 1214 <Electronically signed by Molly BARBER> Cosigner Signature (if applicable): CC: ~ Signed [facility] Work Phone: [phone] 700-127903-10-2023 Progress note Author Molly Tripp [facility] August 28, 2022 4:04pm Note Date/Time August 28, 2022 4:0 4pm [facility] [address] [place] [address] Progress Note - Wound Care 08/28/22 1555 MR#: [id number] Acct: [id number] Name: LIZ WADSWORTH Rep #:[id number] : 1950 72 From: Molly BARBER PCP: Dr. Luis Cortés MD Status:R EG RCR Location: History of Present Illness Date of Service: 08/28/22 Chief Complaint: LLE wounds, bilateral lower extremity swelling History of Wound: Patient has been treated at the [facility] in the past for similar wounds, most recently February 2022. She is also known to me from the vascular surgery clinic where we evaluated her for BLE DVT and venous insufficiency. Patient was started on Eliquis for the provoked DVTs. Consistent measured compression was initiated as she had not previously worn compression between wound episodes. At that time, we did also discuss that should wounds recur, could consider GSV ablation. Patient's medical history is also significant for CHF, COPD, T2DM, lymphedema. She reports that she has not been taking her furosemide at all for a few weeks as she lost this month's supply. She states she has been wearing the compressionstockings but feels her swelling has been worse over the last couple of weeks and then these blisters appeared, ruptured, and turned into the superficial wounds she presents with today. Subjective Subjective Patient continues to have erythema and tenderness of LLE. She has not been taking the Bactrim I prescribed. She states the pharmacy did not have the Rx when she went to pick it up this past Wednesday. Denies F/C, N/V. She reports that her feet often feel cold and sometimes turn blue-norma purple, often at night. This has been happening for a long time, not just since startingcompression. It comes and goes, no associated pain. Dressing changes have not been going as directed at home, using other supplies than those directed. Seems like she is struggling with this. Objective Data Objective Data Vital Signs: Vital Signs Temp Pulse BP 96.1 F L 71 163/99 H 08/28/22 12:18 08/28/22 12:18 08/28/22 12:18 Weight: 314 lb 6 oz Body Mass Index (BMI) 50.7 Lab / Micro Data Micro: Microbiology 08/21/22 11:00 Wound Abcess - Leg, Left Gram Stain - Final 08/21/22 11:00 Wound Abcess - Leg, Left Wound Culture - Final Serratia marcescens Meth. resistant Staph. aureus 08/21/22 11:00 Wound Abcess - Leg, Left Anaerobic Culture - Final No anaerobic bacteria isolated. Charges/Coding Visit Charges Office Visits / Consults: [id number] OV L1 Est Physical Exam Const alert, oriented x3 and no apparent distress General Appearance: cooperative HEENT normocephalic, head/scalp atraumatic, hearing grossly normal bilaterally, external ears normal and external nose normal Eyes EOMs intact bilaterally General Eye: normal appearance of both eyes Neck full ROM General: normal visual inspection and trachea midline Resp normal respiratory effort, no use of accessory muscles and clear to auscultationbilaterally Effort and Inspection: able to speak in complete sentences and symmetric chest movement; Negative for labored, stridor or audible wheezes Auscultation: clear to auscultation bilaterally and diminished lung sounds Cardio regular rate and regular rhythm Peripheral Pulses: brachial pulses present and radial pulses present Extremity Extremity Narrative: Significant bilateral lower extremity edema. Normal capillary refill. Skin Skin Narrative: Bilateral venous stasis dermatitis, scattered fluid-filled blisters. Wounds: wounds noted Wound Narrative: Cluster of superficial wounds on lateral and medial aspect of left lower leg. Irregularly shaped, some maceration of periwound skin. Significant amount of serous drainage noted. No new wounds. LLE erythematous and warmer compared to RLE, increased tenderness to palpation in LLE. Neuro oriented x3, CN's II-XII intact bilaterally, moves all extremities and no focal motor deficits Coordination / Balance: tandem gait normal Psych mental status grossly normal Appearance: grossly normal Attitude: calm and engaged Activity / Motor Behavior: appropriate eye contact Speech: normal speech Mood & Affect: euthymic mood Attention / Concentration: attention grossly intact Memory / Cognition: memory grossly intact Debridement Note Debridement Note Wound debrided: Left lateral lower leg cluster Severity: Limited To Skin Breakdown No debridement was completed: No debridement was completed today Post-Debridement Measurements and Additional Note: Post-Debridement Measurements/Treatment - Nurse 1 - General Ulcer Assessment Start: 08/21/22 10:46 Freq: Status: Active Protocol: KELSEY Activity Type Activity Date Activity User E-sign Co-sign Detail Recorded Client Recorded Date Recorded By Document 08/21/22 10:46 WI [id number] 08/21/22 10:49 AK Document 08/28/22 12:18 AK [id number] 08/28/22 12:22 WI 08/21/22 08/28/22 10:46 12:18 - Today's Visit Information Type of service Follow-up Visit Follow-up Visit (Physician/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 (Physician/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 ) ) Arrival Mode Ambulatory Ambulatory Patient Identification Verified (Name & Yes Yes ) Patient Requires Transmission-Based No No Precautions Safety Precautions NA NA Height and Weight Body Mass Index (BMI) 50.7 50.7 BMI Classification Obese Obese Vital Signs Temperature (97.8 F-99.1 F) 96.1 F L Temperature Source Temporal Pulse Rate (60-100) 71 Pulse Location Monitor Blood Pressure (90/60-120/80) 163/99 H Blood Pressure Mean (mm Hg) 120 Source Monitor History Since Last Visit- (Skip if this is Patient's initial visit) Have you changed medications since your No No last visit? Any new allergies or adverse reactions No No Had a fall/change in ADL's that may No No increase risk of falls Signs or symptoms of abuse and/or No No neglect since last visit Have you been in the hospital since your Yes No last visit? Has dressing in place as prescribed No Yes Has compression in place as prescribed N/A Yes Has offloadiing in place as prescribed N/A N/A Experienced any changes in pain level or No No management Left Footwear Regular Shoe Regular Shoe Right Footwear Regular Shoe Regular Shoe Pain Scale: 0-10 Numeric Is Patient Pain Free? Yes No WC - Nurse 1 - General Ulcer Measurement Start: 08/21/22 10:46 Freq: Status: Active Protocol: Activity Type Activity Date Activity User E-sign Co-sign Detail Recorded Client Recorded Date Recorded By Document 08/21/22 10:46 WI [id number] 08/21/22 10:49 AK Document 08/28/22 12:18 AK [id number] 08/28/22 12:22 AK 08/21/22 08/28/22 10:46 12:18 Wound Center Nurse 1 L lateral leg cluster -Combined with other wound No No -Current Size (cm) - Length 5 4 -Current Size (cm) - Width 3 5 -Current Size (cm) - Depth 0.1 -Total Square Cm 15 20 -Photo Taken Yes Yes -Tunneling No No -Undermining/Tunneling No No -Circular Undermining No No -Change in Wound Grade/Stage No No -Exudate Amt Medium Large -Exudate Type Serosanguineous Purulent -Wound Margin Distinct, Outline Attached -Granulation Amt None Present (0 None Present (0 %) %) -Granulation Quality N/A N/A -Slough/Fibrin No No -Necrosis Amt None Present (0 None Present (0 %) %) -Structure Exposed N/A N/A -Texture (Adrianna-wound Skin Appearance) No Abnormality, No Abnormality, Assessed Assessed -Moisture (Adrianna-wound Skin Appearance) Assessed,Dry/ Assessed, Scaly Weeping -Color (Adrianna-wound Skin Appearance) No Abnormality, No Abnormality, Assessed Assessed -Temperature (Adrianna-wound Skin No Abnormality No Abnormality Appearance) (Pt Warm) (Pt Warm) -Tenderness on Palpation (Adrianna-wound No No Skin Appearance) -Ulcer Cleansing Rinsed/ Soap and Water Irrigated with Saline -Foul Odor after Cleansing No No #4 L medial LE cluster -Combined with other wound No -Current Size (cm) - Length 0.2 -Current Size (cm) - Width 0.2 -Current Size (cm) - Depth 0.1 -Total Square Cm 0.04 -Photo Taken Yes -Tunneling No -Undermining/Tunneling No -Circular Undermining No -Change in Wound Grade/Stage No -Exudate Amt Small -Exudate Type Serosanguineous -Wound Margin Distinct, Outline Attached -Granulation Amt Small (1-33%) -Granulation Quality N/A -Slough/Fibrin No -Necrosis Amt None Present (0 %) -Structure Exposed N/A -Texture (Adrianna-wound Skin Appearance) No Abnormality, Assessed -Moisture (Adrianna-wound Skin Appearance) Assessed, Maceration -Color (Adrianna-wound Skin Appearance) No Abnormality, Assessed -Temperature (Adrianna-wound Skin No Abnormality Appearance) (Pt Warm) -Tenderness on Palpation (Adrianna-wound No Skin Appearance) -Ulcer Cleansing Rinsed/ Irrigated with Saline -Foul Odor after Cleansing No -Anesthetic Used 5% Lidocaine Gel Lower Limb Edema Present No Right Calf (cm) 53 Right Ankle (cm) 30 Left Calf (cm) 52.5 56 Left Ankle (cm) 28.5 29 WC - Nurse 2 - General Ulcer CM Notes Start: 08/21/22 10:46 Freq: Status: Active Protocol: Activity Type Activity Date Activity User E-sign Co-sign Detail Recorded Client Recorded Date Recorded By Document 08/21/22 12:40 ALLYSON [id number] 08/21/22 12:42 PL 08/21/22 12:40 Wound Center Nurse 2 L lateral leg cluster -Time 10:55 -Correct Patient Yes -Correct Side, Site, Position Yes -Correct Procedure Yes -Procedure Performed Yes -Type of Procedure Debridement -Clinical Debridement Subcutaneous -Tissue Removed Epidermis, Dermis, Subcutaneous -Post Debridement (cm) - Length 5.0 -Post Debridement (cm) - Width 3.0 -Post Debridement (cm) - Depth 0.1 -Total Square (Post) (cm) 15.00 -Area of Debridement (cm) - Length 5.0 -Area of Debridement (cm) - Width 3.0 -Total Square (Area) (cm) 15.00 -Tunneling No -Undermining/Tunneling No -Circular Undermining No -Wound/Ulcer Outcome Not Healed -Ulcer Cleansing Rinsed/ Irrigated with Saline -Foul Odor after Cleansing No -Bioengineered Tissue No -Bleeding Controlled with Pressure -Treatment Response Procedure Tolerated Well -Debridement - Subq, 1st 20sq cm No #4 L medial LE cluster -Time 10:55 -Correct Patient Yes -Correct Side, Site, Position Yes -Correct Procedure Yes -Procedure Performed Yes -Type of Procedure Debridement -Clinical Debridement Subcutaneous -Tissue Removed Subcutaneous -Post Debridement (cm) - Length 0.2 -Post Debridement (cm) - Width 0.2 -Post Debridement (cm) - Depth 0.1 -Total Square (Post) (cm) 0.04 -Area of Debridement (cm) - Length 0.2 -Area of Debridement (cm) - Width 0.2 -Total Square (Area) (cm) 0.04 -Tunneling No -Undermining/Tunneling No -Circular Undermining No -Wound/Ulcer Outcome Not Healed -Ulcer Cleansing Rinsed/ Irrigated with Saline -Foul Odor after Cleansing No -Bioengineered Tissue No -Debridement - Subq, 1st 20sq cm Yes Pain Scale: 0-10 Numeric Is Patient Pain Free? Yes - Nurse 3 - General Ulcer D/C NN Start: 08/21/22 10:46 Freq: Status: Active Protocol: Activity Type Activity Date Activity User E-sign Co-sign Detail Recorded Client Recorded Date Recorded By Document 08/21/22 11:29 OK [id number] 08/21/22 11:34 OK Document 08/28/22 12:18 AK [id number] 08/28/22 12:22 AK 08/21/22 08/28/22 11:29 12:18 Wound Care Center Nurse 3 L lateral leg cluster -Ulcer Cleansing Rinsed/ Irrigated with Saline -Foul Odor after Cleansing No -Negative Pressure Wound Therapy N/A -Primary Dressing Applied Optilok 8x12 -Optilok 8x12 1 #4 L medial LE cluster -Ulcer Cleansing Rinsed/ Irrigated with Saline -Primary Dressing Applied Optilok 8x12 -Other Dressing kerlix -Primary Dressing Covered/Secured with Dry Gauze, Secured with Tape -Optilok 8x12 1 luke -Lotion applied to leg before Yes compression wrap -Multi-Layered Wrap Application Multi-Layer Comp - Bilat ($ ) Right -Tubular Bandage Double Layer -Size of Tubigrip Used Size F -Size F ($) 2 Left -Tubular Bandage Double Layer -Size of Tubigrip Used Size F -Size F ($) 2 Vital Signs Temperature (97.8 F-99.1 F) 96.1 F L Temperature Source Temporal Pulse Rate (60-100) 71 Pulse Location Monitor Blood Pressure (90/60-120/80) 163/99 H Blood Pressure Mean (mm Hg) 120 Source Monitor Pain Scale: 0-10 Numeric Is Patient Pain Free? Yes No WC - Visit Discharge Discharge Condition Stable Stable Ambulatory Status Steady Ambulatory Transportation Private Auto Private Auto Accompanied by Medication Reconcilliation completed & No Yes provided to patient/care provider Clinical Summary of Care Provided Yes Yes Notes: pt and verbalized understanding how to change dressing. I demonstrated how to properly place tubigribs on. pt and verbalized understanding how to put tubigribs on. Additional Wound Wound debrided: Left medial lower leg cluster Severity: Limited To Skin Breakdown Assessment/Plan Assessment/Plan (1) Non-pressure chronic ulcer left lower leg, limited to breakdown skin: CODE(S): L97.921 - Non-pressure chronic ulcer of unspecified part of left lower leg limited to breakdown of skin (2) DVT, bilateral lower limbs: CODE(S): I82.403 - Acute embolism and thrombosis of unspecified deep veinsof lower extremity, bilateral QUALIFIERS: Affected thrombotic vein of extremity: popliteal Chronicity: acute Qualified Code(s): I82.433 - Acute embolism and thrombosis ofpopliteal vein, bilateral (3) Lymphedema: CODE(S): I89.0 - Lymphedema, not elsewhere classified (4) Edema of both lower extremities: CODE(S): R60.0 - Localized edema PLAN: Plan Patient presents with superficial wound clusters to lateral and medial aspect left lower leg which appears secondary to her significant lower extremity swelling. Bilateral lower extremity edema seems to be multi-factorial with CHF, lymphedema, venous insufficiency, and post-thrombotic effects. Patient is having trouble with dressing changes at home. Will continue fibracol but switch to 3M wrap. This will also provide adequate compression. Patient willcome into clinic next Wednesday for nurse visit to have dressing changed. Advised patient to continue to elevate her legs when resting. Encouraged her to reach out to PCP about Lasix which would also likely help with her swelling. We also send a note to PCP's office regarding this on patient's behalf today. LLE continues to be erythematous, warm, and tender to palpation but stable from last week. Wound cultures showed serratia marcescens and MRSA. Switched her to Bactrim DS BID x14 days. She reports this was not at her pharmacy when she triedto pick it up. I called pharmacy and they said she filled in this past Wednesday along with many other medications. I asked her to check at home and see if it got lost among her other medications. If she does not find it, sent in new Rx for her to corn picker. Ask that she call and let us know if she has trouble. Would like her to start this as soon as possible. We discussed the importance of good blood sugar control, increase protein in diet. Patient will return to [facility] in 1 week or sooner as needed. 08/28/22 1604 <Electronically signed by Molly BARBER> Cosigner Signature (if applicable): CC: ~ Signed [facility] Work Phone: 1(953) 637-666103-03-2023 Progress note Author Molly reynaldo [facility] August 21, 2022 7:46pm Note Date/Time August 21, 2022 7:30 pm [facility] [address] [place] [address] Progress Note - Wound Care 08/21/224 MR#: [id number] Acct: [id number] Name: LIZ WADSWORTH Rep #:[id number] : 1950 72 From: Molly BARBER PCP: Dr. Luis Cortés MD Status:R EG RCR Location: History of Present Illness Date of Service: 08/21/22 Chief Complaint: LLE wounds, bilateral lower extremity swelling History of Wound: Patient has been treated at the [facility] in the past for similar wounds, most recently February 2022. She is also known to me from the vascular surgery clinic where we evaluated her for BLE DVT and venous insufficiency. Patient was started on Eliquis for the provoked DVTs. Consistent measured compression was initiated as she had not previously worn compression between wound episodes. At that time, we did also discuss that should wounds recur, could consider GSV ablation. Patient's medical history is also significant for CHF, COPD, T2DM, lymphedema. She reports that she has not been taking her furosemide at all for a few weeks as she lost this month's supply. She states she has been wearing the compressionstockings but feels her swelling has been worse over the last couple of weeks and then these blisters appeared, ruptured, and turned into the superficial wounds she presents with today. Subjective Subjective Patient has been doing alright with dressing changes. She reports she does continue to note significant drainage/weeping, but is only needing to change super absorbent dressing once daily. She has been tolerating the compression. She does report some increased erythema and tenderness/pain to the LLE. She denies F/C, N/V, CP, SOB. She is still not taking lasix. Not noticing a significant improvement in BLE swelling with compression alone. Objective Data Objective Data Vital Signs: Vital Signs Temp 97.1 F L 08/19/22 00:37 Weight: 314 lb 6 oz Body Mass Index (BMI) 50.7 Lab / Micro Data Micro: Microbiology 08/21/22 11:00 Wound Abcess - Leg, Left Gram Stain - Final Physical Exam Const alert, oriented x3 and no apparent distress General Appearance: cooperative HEENT normocephalic, head/scalp atraumatic, hearing grossly normal bilaterally, external ears normal and external nose normal Eyes EOMs intact bilaterally General Eye: normal appearance of both eyes Neck full ROM General: normal visual inspection and trachea midline Resp normal respiratory effort, no use of accessory muscles and clear to auscultationbilaterally Effort and Inspection: able to speak in complete sentences and symmetric chest movement; Negative for labored, stridor or audible wheezes Auscultation: clear to auscultation bilaterally and diminished lung sounds Cardio regular rate and regular rhythm Peripheral Pulses: brachial pulses present and radial pulses present Extremity Extremity Narrative: Significant bilateral lower extremity edema. Normal capillary refill. Skin Skin Narrative: Bilateral venous stasis dermatitis, scattered fluid-filled blisters. Wounds: wounds noted Wound Narrative: Cluster of superficial wounds on lateral and medial aspect of left lower leg. Irregularly shaped, some maceration of periwound skin. Significant amount of serous drainage noted. No new wounds. LLE erythematous and warmer compared to RLE, increased tenderness to palpation in LLE. Neuro oriented x3, CN's II-XII intact bilaterally, moves all extremities and no focal motor deficits Coordination / Balance: tandem gait normal Psych mental status grossly normal Appearance: grossly normal Attitude: calm and engaged Activity / Motor Behavior: appropriate eye contact Speech: normal speech Mood & Affect: euthymic mood Attention / Concentration: attention grossly intact Memory / Cognition: memory grossly intact Debridement Note Debridement Note Wound debrided: Left lateral lower leg cluster Laterality: Left Type of Debridement: Excisional debridement Anesthesia Used: 5% Lidocaine Gel Depth: Down to and including healthy tissue Percentage of wound debrided: 100 Instrument Used: 5mm curette Tissue Removed: slough, devitalized tissue Severity: Limited To Skin Breakdown Amount of bleeding with debridement: Mild Bleeding Controlled with: Pressure Patient tolerated procedure: Patient tolerated procedure well Post-Debridement Measurements and Additional Note: Post-Debridement Measurements/Treatment - Nurse 1 - General Ulcer Assessment Start: 08/21/22 10:46 Freq: Status: Active Protocol: KELSEY Activity Type Activity Date Activity User E-sign Co-sign Detail Recorded Client Recorded Date Recorded By Document 08/21/22 10:46 WI [id number] 08/21/22 10:49 GLENN 08/21/22 10:46 - Today's Visit Information Type of service Follow-up Visit (Physician/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 ) Arrival Mode Ambulatory Patient Identification Verified (Name & Yes ) Patient Requires Transmission-Based No Precautions Safety Precautions NA Height and Weight Body Mass Index (BMI) 50.7 BMI Classification Obese History Since Last Visit- (Skip if this is Patient's initial visit) Have you changed medications since your No last visit? Any new allergies or adverse reactions No Had a fall/change in ADL's that may No increase risk of falls Signs or symptoms of abuse and/or No neglect since last visit Have you been in the hospital since your Yes last visit? Has dressing in place as prescribed No Has compression in place as prescribed N/A Has offloadiing in place as prescribed N/A Experienced any changes in pain level or No management Left Footwear Regular Shoe Right Footwear Regular Shoe Pain Scale: 0-10 Numeric Is Patient Pain Free? Yes - Nurse 1 - General Ulcer Measurement Start: 08/21/22 10:46 Freq: Status: Active Protocol: Activity Type Activity Date Activity User E-sign Co-sign Detail Recorded Client Recorded Date Recorded By Document 08/21/22 10:46 GLENN [id number] 08/21/22 10:49 GLENN 08/21/22 10:46 Wound Center Nurse 1 L lateral leg cluster -Combined with other wound No -Current Size (cm) - Length 5 -Current Size (cm) - Width 3 -Current Size (cm) - Depth 0.1 -Total Square Cm 15 -Photo Taken Yes -Tunneling No -Undermining/Tunneling No -Circular Undermining No -Change in Wound Grade/Stage No -Exudate Amt Medium -Exudate Type Serosanguineous -Wound Margin Distinct, Outline Attached -Granulation Amt None Present (0 %) -Granulation Quality N/A -Slough/Fibrin No -Necrosis Amt None Present (0 %) -Structure Exposed N/A -Texture (Adrianna-wound Skin Appearance) No Abnormality, Assessed -Moisture (Adrianna-wound Skin Appearance) Assessed,Dry/ Scaly -Color (Adrianna-wound Skin Appearance) No Abnormality, Assessed -Temperature (Adrianna-wound Skin No Abnormality Appearance) (Pt Warm) -Tenderness on Palpation (Adrianna-wound No Skin Appearance) -Ulcer Cleansing Rinsed/ Irrigated with Saline -Foul Odor after Cleansing No #4 L medial LE cluster -Combined with other wound No -Current Size (cm) - Length 0.2 -Current Size (cm) - Width 0.2 -Current Size (cm) - Depth 0.1 -Total Square Cm 0.04 -Photo Taken Yes -Tunneling No -Undermining/Tunneling No -Circular Undermining No -Change in Wound Grade/Stage No -Exudate Amt Small -Exudate Type Serosanguineous -Wound Margin Distinct, Outline Attached -Granulation Amt Small (1-33%) -Granulation Quality N/A -Slough/Fibrin No -Necrosis Amt None Present (0 %) -Structure Exposed N/A -Texture (Adrianna-wound Skin Appearance) No Abnormality, Assessed -Moisture (Adrianna-wound Skin Appearance) Assessed, Maceration -Color (Adrianna-wound Skin Appearance) No Abnormality, Assessed -Temperature (Adrianna-wound Skin No Abnormality Appearance) (Pt Warm) -Tenderness on Palpation (Adrianna-wound No Skin Appearance) -Ulcer Cleansing Rinsed/ Irrigated with Saline -Foul Odor after Cleansing No -Anesthetic Used 5% Lidocaine Gel Right Calf (cm) 53 Right Ankle (cm) 30 Left Calf (cm) 52.5 Left Ankle (cm) 28.5 WC - Nurse 2 - General Ulcer CM Notes Start: 08/21/22 10:46 Freq: Status: Active Protocol: Activity Type Activity Date Activity User E-sign Co-sign Detail Recorded Client Recorded Date Recorded By Document 08/21/22 12:40 PL [id number] 08/21/22 12:42 PL 08/21/22 12:40 Wound Center Nurse 2 L lateral leg cluster -Time 10:55 -Correct Patient Yes -Correct Side, Site, Position Yes -Correct Procedure Yes -Procedure Performed Yes -Type of Procedure Debridement -Clinical Debridement Subcutaneous -Tissue Removed Epidermis, Dermis, Subcutaneous -Post Debridement (cm) - Length 5.0 -Post Debridement (cm) - Width 3.0 -Post Debridement (cm) - Depth 0.1 -Total Square (Post) (cm) 15.00 -Area of Debridement (cm) - Length 5.0 -Area of Debridement (cm) - Width 3.0 -Total Square (Area) (cm) 15.00 -Tunneling No -Undermining/Tunneling No -Circular Undermining No -Wound/Ulcer Outcome Not Healed -Ulcer Cleansing Rinsed/ Irrigated with Saline -Foul Odor after Cleansing No -Bioengineered Tissue No -Bleeding Controlled with Pressure -Treatment Response Procedure Tolerated Well -Debridement - Subq, 1st 20sq cm No #4 L medial LE cluster -Time 10:55 -Correct Patient Yes -Correct Side, Site, Position Yes -Correct Procedure Yes -Procedure Performed Yes -Type of Procedure Debridement -Clinical Debridement Subcutaneous -Tissue Removed Subcutaneous -Post Debridement (cm) - Length 0.2 -Post Debridement (cm) - Width 0.2 -Post Debridement (cm) - Depth 0.1 -Total Square (Post) (cm) 0.04 -Area of Debridement (cm) - Length 0.2 -Area of Debridement (cm) - Width 0.2 -Total Square (Area) (cm) 0.04 -Tunneling No -Undermining/Tunneling No -Circular Undermining No -Wound/Ulcer Outcome Not Healed -Ulcer Cleansing Rinsed/ Irrigated with Saline -Foul Odor after Cleansing No -Bioengineered Tissue No -Debridement - Subq, 1st 20sq cm Yes Pain Scale: 0-10 Numeric Is Patient Pain Free? Yes - Nurse 3 - General Ulcer D/C NN Start: 08/21/22 10:46 Freq: Status: Active Protocol: Activity Type Activity Date Activity User E-sign Co-sign Detail Recorded Client Recorded Date Recorded By Document 08/21/22 11:29 OK [id number] 08/21/22 11:34 OK 08/21/22 11:29 Wound Care Center Nurse 3 #4 L medial LE cluster -Ulcer Cleansing Rinsed/ Irrigated with Saline -Primary Dressing Applied Optilok 8x12 -Other Dressing kerlix -Primary Dressing Covered/Secured with Dry Gauze, Secured with Tape -Optilok 8x12 1 Right -Tubular Bandage Double Layer -Size of Tubigrip Used Size F -Size F ($) 2 Left -Tubular Bandage Double Layer -Size of Tubigrip Used Size F -Size F ($) 2 Pain Scale: 0-10 Numeric Is Patient Pain Free? Yes WC - Visit Discharge Discharge Condition Stable Ambulatory Status Steady Transportation Private Auto Medication Reconcilliation completed & No provided to patient/care provider Clinical Summary of Care Provided Yes Notes: pt and verbalized understanding how to change dressing. I demonstrated how to properly place tubigribs on. pt and verbalized understanding how to put tubigribs on. Additional Wound Wound debrided: Left medial lower leg cluster Laterality: Left Type of Debridement: Excisional debridement Anesthesia Used: 5% Lidocaine Gel Depth: Down to and including healthy tissue Percentage of wound debrided: 100 Instrument Used: 5mm curette Tissue Removed: slough, devitalized tissue Severity: Limited To Skin Breakdown Amount of bleeding with debridement: Mild Bleeding Controlled with: Pressure Patient tolerated procedure: Patient tolerated procedure well Assessment/Plan Assessment/Plan (1) Non-pressure chronic ulcer left lower leg, limited to breakdown skin: CODE(S): L97.921 - Non-pressure chronic ulcer of unspecified part of left lower leg limited to breakdown of skin (2) DVT, bilateral lower limbs: CODE(S): I82.403 - Acute embolism and thrombosis of unspecified deep veinsof lower extremity, bilateral QUALIFIERS: Affected thrombotic vein of extremity: popliteal Chronicity: acute Qualified Code(s): I82.433 - Acute embolism and thrombosis ofpopliteal vein, bilateral (3) Lymphedema: CODE(S): I89.0 - Lymphedema, not elsewhere classified (4) Edema of both lower extremities: CODE(S): R60.0 - Localized edema PLAN: Plan Patient presents with superficial wound clusters to lateral and medial aspect left lower leg which appears secondary to her significant lower extremity swelling. Bilateral lower extremity edema seems to be multi-factorial with CHF, lymphedema, venous insufficiency, and post-thrombotic effects. Continue primary dressing of fibracol, wrap in kerlix. Change dressing at least once daily, more often as needed to keep clean and dry. Do not submerge wounds in water. Patient BLE edema does not seem significantly improved with current compression.Will apply double tubigrip to increase compression. I think taking lasix as prescribed will be important in decreasing LE edema as well. Also advised her toelevate her legs when resting. LLE was erythematous, warm, and tender to palpation. Wound cultures were obtained. Empirically prescribed keflex 500mg every 6 hours x 7 days, will adjust as indicated by C&S. Did discuss patient's penicillin allergy -- she reports she has had penicillin IM in the past which she has tolerated without issue, oral penicillin/amoxicillin upsets her stomach. She will call if she experiences any adverse effects. We discussed the importance of good blood sugar control, increase protein in diet. Patient will return to [facility] in 1 week or sooner as needed. 08/21/221945 <Electronically signed by Molly BARBER> Cosigner Signature (if applicable): CC: ~ Signed [facility] Work Phone: [phone] 843-451302-26-2023 History and physical note Author Molly Tripp [facility] August 16, 2022 12:14am Note Date/Time August 14, 2022 11:06am [facility] [address] [place] [address] H&P Exam - Wound Care 08/14/22 1103 MR#: [id number] Acct: [id number] Name: LIZ WADSWORTH Rep #:[id number] : 1950 72 From: Molly BARBER PCP: Dr. Luis Cortés MD Status:R EG RCR Location: History of Present Illness Date of Service: 08/14/22 Chief Complaint: LLE wounds, bilateral lower extremity swelling History of Wound: Patient has been treated at the [facility] in the past for similar wounds, most recently February 2022. She is also known to me from the vascular surgery clinic where we evaluated her for BLE DVT and venous insufficiency. Patient was started on Eliquis for the provoked DVTs. Consistent measured compression was initiated as she had not previously worn compression between wound episodes. At that time, we did also discuss that should wounds recur, could consider GSV ablation. Patient's medical history is also significant for CHF, COPD, T2DM, lymphedema. She reports that she has not been taking her furosemide at all for a few weeks as she lost this month's supply. She states she has been wearing the compressionstockings but feels her swelling has been worse over the last couple of weeks and then these blisters appeared, ruptured, and turned into the superficial wounds she presents with today. [facility] Medical History (Updated 08/16/22 @ 00:04 by SUNIL Toussaint) Abdominal pain Alcohol use Asthma Back pain Bladder disease Blister Cardiology follow-up encounter Chronic respiratory failure with hypoxia Constipation COPD (chronic obstructive pulmonary disease) CPAP (continuous positive airway pressure) dependence Depression Depression Dermatitis Diabetes Diabetes mellitus type 2 in obese Dietary restriction Difficulty swallowing Difficulty swallowing DVT (deep venous thrombosis) DVT, bilateral lower limbs Easy bruising Essential hypertension Former smoker Gastric ulcer GERD (gastroesophageal reflux disease) Health care maintenance History of CHF (congestive heart failure) History of echocardiogram History of edema History of pain when walking Hx of cyst of breast Hyperlipidemia Hypertension Hypothyroidism Inactivity Left ventricular hypertrophy Leg cramps Lymphedema Morbid obesity with BMI of 45.0-49.9, adult Neuropathy On home oxygen therapy DOLORES (obstructive sleep apnea) Pneumonia due to COVID-19 virus (01/30/21) Secondary pulmonary arterial hypertension Shortness of breath on exertion Sore throat Syncope Type 2 diabetes mellitus Ulcer of right lower extremity Urinary incontinence with continuous leakage Walker as ambulation aid Wears dentures Wears glasses Home Medications fenofibrate nanocrystallized 48 mg tablet 48 mg PO DAILY 05/07/21 [History Last Taken Unknown] calcium carb 300 mg-D3 800 unit-mag ox 25 mg-copyright clerk 0.5 mg-austin-Zn tablet (Caltrate+ D3 Plus Minerals) 1 tab PO DAILY 06/09/21 [History Last Taken Unknown] duloxetine 60 mg capsule,delayed release 60 mg PO DAILY #90 caps 07/22/21 [Rx Last Taken Unknown] Nebulizer #1 ea 10/06/21 [Rx Last Taken Unknown] carvedilol 25 mg tablet (Coreg) 25 mg PO BID #180 tabs 10/29/21 [Rx Last Taken Unknown] furosemide 40 mg tablet 40 mg PO BID HEART FAILURE #180 tabs 10/29/21 [Rx Last Taken Unknown] hydrocortisone 2.5 % topical cream 1 applic topical BID PRN skin irritation #28.35 grams 10/29/21 [Rx Last Taken Unknown] oxybutynin chloride 5 mg tablet 5 mg PO BID #180 tabs 10/29/21 [Rx Last Taken Unknown] atorvastatin 80 mg tablet 40 mg PO QHS #90 tabs 01/30/22 [Rx Last Taken Unknown] apixaban 5 mg tablet (Eliquis) 5 mg PO BID #180 tabs 04/07/22 [Rx Last Taken 06/01/22] levothyroxine 100 mcg tablet 100 mcg PO DAILY HYPOTHYROIDISM #90 tabs 04/07/22 [Rx Last Taken 06/05/22 05:00] albuterol sulfate 90 mcg/actuation aerosol inhaler 2 puff inhalation Q6H PRN shortness of breath or wheezing #8.5 grams 05/08/22 [Rx Last Taken Unknown] docusate sodium 100 mg capsule (Stool Softener) 100 mg PO BID 06/04/22 [History Last Taken Unknown] pantoprazole 40 mg tablet,delayed release 40 mg PO DAILY #90 tabs 07/06/22 [Rx Last Taken Unknown] metronidazole 500 mg tablet 500 mg PO Q12H 08/05/22 [History Last Taken Unknown] apixaban 5 mg tablet (Eliquis) 5 mg PO BID 08/14/22 [History Last Taken Unknown] levothyroxine 100 mcg capsule 100 mcg PO DAILY 08/14/22 [History Last Taken Unknown] sucralfate 1 gram tablet 1 g PO BID 08/14/22 [History Last Taken Unknown] Allergy/AdvReac Type Severity Reaction Status Date / Time aspirin AdvReac Abd Verified 08/05/22 16:23 cramps/diarrhea codeine AdvReac Abd Verified 08/05/22 16:23 cramps/diarrhea Penicillins AdvReac Hives Verified 08/05/22 16:23 Family History Grandfather Cancer Daughter Ovarian cancer Brother Diabetes Kidney disease Surgical History History of bunionectomy History of esophagogastroduodenoscopy (EGD) Hx of cholecystectomy Hx of colonoscopy Social History Smoking Status: Former smoker Tobacco: How many years used: 30 how long ago did patient quit smokin years alcohol intake: never substance use type: does not use what type of physical activity do you participate in: none ROS Constitutional Constitutional: Denies change in weight, chills, difficulty sleeping, fatigue, fever(s), frequent falls, lethargy, night sweats or weakness Eyes Eyes: Denies blindness, blurry vision, change in vision, eye pain or ptosis ENT HEENT: Denies abnormal hearing, change in voice, hearing loss, loss taste/smell or vertigo Cardiovascular Cardiovascular: Denies abdominal pain, chest pain, claudication, cold extremities, cyanosis, diaphoresis, dyspnea, dyspnea on exertion, fatigue, hypertension, irregular heart rhythm, orthopnea, palpitations, radiating jaw, neck or arm pain or syncope Respiratory/Chest Respiratory/Chest: Denies cough, dyspnea, hemoptysis, nail bed cyanosis, adrianna- oral cyanosis, portable oxygen @ home, productive cough or wheezing Gastrointestinal Gastrointestinal: Denies abdominal pain, change in bowel habits, change in stoolcharacter, coffee ground emesis, melena, rectal bleeding or weight changes Genitourinary Genitourinary: Denies abdominal discomfort, burning urination, difficulty urinating or flank pain Musculoskeletal Musculoskeletal: Denies abnormal gait, difficulty walking, joint swelling, muscle cramps, muscle weakness or numbness Integumentary Integumentary: Denies change in pigmentation, changing lesions, erythema, lesions, rash, skin ulcer, unusual bruising or wounds Neurologic Neurologic: Denies abnormal gait, abnormal movements, abnormal speech, behavior changes, frequent falls, syncope, tingling or weakness Psychiatric Psychiatric: Denies behavioral changes, cognitive impairment or depression Endocrine Endocrinology: Denies change in body appearance, cold intolerance, excessive sweating, flushing, heat intolerance, palpitations, polydipsia, polyphagia or polyuria Hematologic/Lymphatic Hematologic/Lymphatic: Denies anemia, easy bleeding, easy bruising or lymphadenopathy Allergic/Immunologic Allergic/Immunologic: Denies seasonal rhinorrhea, throat swelling, tongue swelling, hives or asthma Vital Signs Vital Signs Vital Signs: 08/14/22 10:19 Temperature 97.1 F L Temperature Source Temporal Weight Weight: 300 lb Body Mass Index (BMI) 48.4 Physical Exam Const alert, oriented x3 and no apparent distress General Appearance: cooperative HEENT normocephalic, head/scalp atraumatic, hearing grossly normal bilaterally, external ears normal and external nose normal Eyes EOMs intact bilaterally General Eye: normal appearance of both eyes Neck full ROM General: normal visual inspection and trachea midline Resp normal respiratory effort, no use of accessory muscles and clear to auscultationbilaterally Effort and Inspection: able to speak in complete sentences and symmetric chest movement; Negative for labored, stridor or audible wheezes Auscultation: clear to auscultation bilaterally and diminished lung sounds Cardio regular rate and regular rhythm Peripheral Pulses: brachial pulses present and radial pulses present Extremity Extremity Narrative: Significant bilateral lower extremity edema. Normal capillary refill. Skin Skin Narrative: Bilateral venous stasis dermatitis, scattered fluid-filled blisters. Wounds: wounds noted Wound Narrative: Cluster of superficial wounds on lateral and medial aspect of left lower leg. Irregularly shaped, some maceration of periwound skin. No excessive erythema, warmth, tenderness to palpation, foul odor. Significant amount of serous drainage noted. Neuro oriented x3, CN's II-XII intact bilaterally, moves all extremities and no focal motor deficits Coordination / Balance: tandem gait normal Psych mental status grossly normal Appearance: grossly normal Attitude: calm and engaged Activity / Motor Behavior: appropriate eye contact Speech: normal speech Mood & Affect: euthymic mood Attention / Concentration: attention grossly intact Memory / Cognition: memory grossly intact Debridement Note Debridement Note Wound debrided: Left lateral lower leg cluster Laterality: Left Type of Debridement: Excisional debridement Anesthesia Used: 5% Lidocaine Gel Depth: Down to and including healthy tissue Percentage of wound debrided: 100 Instrument Used: 5mm curette Tissue Removed: slough, devitalized tissue Severity: Limited To Skin Breakdown Amount of bleeding with debridement: Mild Bleeding Controlled with: Pressure Patient tolerated procedure: Patient tolerated procedure well Post-Debridement Measurements and Additional Note: Post-Debridement Measurements/Treatment - Nurse 1 - General Ulcer Assessment Start: 08/14/22 10:15 Freq: Status: Active Protocol: KELSEY Activity Type Activity Date Activity User E-sign Co-sign Detail Recorded Client Recorded Date Recorded By Document 08/14/22 10:19 WI [id number] 08/14/22 10:26 WI 08/14/22 10:19 WC - Today's Visit Information Type of service Initial Visit Arrival Mode Ambulatory Patient Identification Verified (Name & Yes ) Patient Requires Transmission-Based No Precautions Safety Precautions NA Height and Weight Height 5 ft 6 in Weight 300 lb Weight in Pounds 300.0 lbs Weight Measurement Method Estimated by Patient Body Mass Index (BMI) 48.4 BMI Classification Obese BSA - Marie 2.38 Vital Signs Temperature (97.8 F-99.1 F) 97.1 F L Temperature Source Temporal History Since Last Visit- (Skip if this is Patient's initial visit) Left Footwear Regular Shoe Right Footwear Regular Shoe Pain Scale: 0-10 Numeric Is Patient Pain Free? Yes - Nurse 1 - General Ulcer Measurement Start: 08/14/22 10:15 Freq: Status: Active Protocol: Activity Type Activity Date Activity User E-sign Co-sign Detail Recorded Client Recorded Date Recorded By Document 08/14/22 10:19 WI [id number] 08/14/22 10:26 WI 08/14/22 10:19 Wound Center Nurse 1 L lateral leg cluster -Combined with other wound No -Current Size (cm) - Length 6.4 -Current Size (cm) - Width 2.4 -Current Size (cm) - Depth 0.1 -Total Square Cm 15.36 -Photo Taken Yes -Tunneling No -Undermining/Tunneling No -Circular Undermining No -Change in Wound Grade/Stage No -Exudate Amt Medium -Exudate Type Serosanguineous -Wound Margin Distinct, Outline Attached -Granulation Amt Medium (34-66%) -Granulation Quality Red -Slough/Fibrin Yes -Necrosis Amt Medium (34-66%) -Necrotic Tissue Type Adherent Slough -Structure Exposed N/A -Texture (Adrianna-wound Skin Appearance) No Abnormality, Assessed -Moisture (Adrianna-wound Skin Appearance) No Abnormality, Assessed -Color (Adrianna-wound Skin Appearance) No Abnormality, Assessed -Temperature (Adrianna-wound Skin No Abnormality Appearance) (Pt Warm) -Tenderness on Palpation (Adrianna-wound No Skin Appearance) -Ulcer Cleansing Rinsed/ Irrigated with Saline -Foul Odor after Cleansing No -Anesthetic Used 5% Lidocaine Gel #4 L medial LE cluster -Current Size (cm) - Length 1.5 -Current Size (cm) - Width 2.2 -Current Size (cm) - Depth 0.1 -Total Square Cm 3.30 -Date of Last Picture (Recall this 08/14/22 field) -Photo Taken Yes -Tunneling No -Undermining/Tunneling No -Circular Undermining No -Change in Wound Grade/Stage No -Exudate Amt Medium -Exudate Type Serosanguineous -Wound Margin Distinct, Outline Attached -Granulation Amt Medium (34-66%) -Granulation Quality [place] -Slough/Fibrin Yes -Necrosis Amt Medium (34-66%) -Necrotic Tissue Type Adherent Slough -Structure Exposed N/A -Texture (Adrianna-wound Skin Appearance) No Abnormality, Assessed -Moisture (Adrianna-wound Skin Appearance) No Abnormality, Assessed -Color (Adrianna-wound Skin Appearance) No Abnormality, Assessed -Temperature (Adrianna-wound Skin No Abnormality Appearance) (Pt Warm) -Tenderness on Palpation (Adrianna-wound No Skin Appearance) -Ulcer Cleansing Rinsed/ Irrigated with Saline -Foul Odor after Cleansing No -Anesthetic Used 5% Lidocaine Gel Right Calf (cm) 50.6 Right Ankle (cm) 28.5 Left Calf (cm) 52.1 Left Ankle (cm) 29.3 WC - Nurse 3 - General Ulcer D/C NN Start: 08/14/22 10:15 Freq: Status: Active Protocol: Activity Type Activity Date Activity User E-sign Co-sign Detail Recorded Client Recorded Date Recorded By Document 08/14/22 10:59 [email or web address] [id number] 08/14/22 11:00 JAREK 08/14/22 10:59 Wound Care Center Nurse 3 L lateral leg cluster -Ulcer Cleansing Rinsed/ Irrigated with Saline -Foul Odor after Cleansing No -Primary Dressing Applied Fibracol Plus 4x4,Optilok 6. 5x10 -Primary Dressing Covered/Secured with Dry Gauze & Roll Gauze -Fibracol Plus 4x4 1 -Optilok 6.5x10 1 #4 L medial LE cluster -Ulcer Cleansing Rinsed/ Irrigated with Saline -Foul Odor after Cleansing No -Primary Dressing Applied Fibracol Plus 4x4,Optilok 8x12 -Primary Dressing Covered/Secured with Dry Gauze & Roll Gauze -Fibracol Plus 4x4 0 -Optilok 8x12 1 Right -Tubular Bandage Single Layer -Size of Tubigrip Used Size E -Size E ($) 1 Left -Tubular Bandage Single Layer -Size of Tubigrip Used Size E -Size E ($) 1 Pain Scale: 0-10 Numeric Is Patient Pain Free? Yes WC - Visit Discharge Discharge Condition Stable Ambulatory Status Ambulatory Transportation Private Auto Accompanied by friend Medication Reconcilliation completed & Yes provided to patient/care provider Clinical Summary of Care Provided Yes Additional Wound Wound debrided: Left medial lower leg cluster Laterality: Left Type of Debridement: Excisional debridement Anesthesia Used: 5% Lidocaine Gel Depth: Down to and including healthy tissue Percentage of wound debrided: 100 Instrument Used: 5mm curette Tissue Removed: slough, devitalized tissue Severity: Limited To Skin Breakdown Amount of bleeding with debridement: Mild Bleeding Controlled with: Pressure Patient tolerated procedure: Patient tolerated procedure well Charges/Coding Wound Center CF Procedures [id number]: [id number] RMVL DEVITAL TIS 20 CM/< Multi Select Codes Wound Center CF Procedures [id number]: [id number] RMVL DEVITAL TIS 20 CM/< Assessment/Plan Assessment/Plan (1) Wound of left lower extremity: CODE(S): S81.802A - Unspecified open wound, left lower leg, initial encounter PLAN: Plan Patient presents with superficial wound clusters to lateral and medial aspect left lower leg which appears secondary to her significant lower extremity swelling. Bilateral lower extremity seems to be multi-factorial with CHF, lymphedema, venous insufficiency, and post-thrombotic effects. Will apply primary dressing of fibracol, wrap in kerlix. Change dressing at least once daily, more often as needed to keep clean and dry. Do not submerge wounds in water. Compression will be very important to the healing process. Will apply 20-30mmHg compression with tubigrips bilaterally. Encouraged patient to reach out to pharmacy to see if she can get an early refill of her furosemide so that she will be able to take as prescribed as this will likely help to reduce her swelling as well. No signs/symptoms of infection today. Do not think wound cultures are indicated at this time. We discussed the importance of good blood sugar control, increase protein in diet. Elevate legs when resting. Patient will return to [facility] in 1 week or sooner as needed. 08/16/22 0014 <Electronically signed by Molly BARBER> Cosigner Signature (if applicable): CC: ~ Signed [facility] Work Phone: [phone] Note* Addendum Note - Liliam Corey CNP - 11/04/2021 10:15 AM EDTAddended by: LILIAM COREY on: 11/04/2021 10:15 AM Modules accepted: Orders [id number] Note* Addendum Note - Liliam Corey CNP - 11/04/2021 10:15 AM EDTAddended by: LILIAM COREY on: 11/04/2021 10:15 AM Modules accepted: Orders [id number] Miscellaneous Notes* Addendum Note - Liliam Corey CNP - 11/04/2021 10:15 AM EDTAddended by: LILIAM COREY on: 11/04/2021 10:15 AM Modules accepted: Orders * Telephone Encounter - Liliam Corey CNP - 11/04/2021 10:13 AM EDT Prescription approved. Sent to pharmacy on file. Pharmacy to notify patient when refill is available. documented in this [id number] Telephone encounter Note* Telephone Encounter - Liliam Corey CNP - 11/04/2021 10:13 AM EDT Prescription approved. Sent to pharmacy on file. Pharmacy to notify patient when refill is available. [id number] Telephone encounter Note* Telephone Encounter - Liliam Corey CNP - 10/13/2021 11:35 AM EDT Prescription approved. Sent to pharmacy on file. Pharmacy to notify patient when refill is available. [id number] Miscellaneous Notes* Telephone Encounter - Liliam Corey CNP - 10/13/2021 11:35 AM EDT Prescription approved. Sent to pharmacy on file. Pharmacy to notify patient when refill is available. documented in this [id number] Miscellaneous Notes* Telephone Encounter - Liliam Corey CNP - 06/24/2021 9:15 AM EST Prescription approved. Sent to pharmacy on file. Pharmacy to notify patient when refill is available. documented in this [id number] Miscellaneous Notes* Telephone Encounter - Liliam Corey CNP - 05/01/2021 11:24 AM EST Prescription approved. Sent to pharmacy on file. Pharmacy to notify patient when refill is available. documented in this [id number] Miscellaneous Notes* Telephone Encounter - Liliam Corey CNP - 11/12/2020 3:37 PM EDT Prescription approved. Sent to pharmacy on file. Pharmacy to notify patient when refill is available. documented in this [id number] Miscellaneous Notes* Telephone Encounter - Liliam Corey CNP - 11/04/2020 1:41 PM EDT Prescription approved. Sent to pharmacy on file. Pharmacy to notify patient when refill is available. documented in this [id number] History of Present illness Narrative* Liliam Corey CNP - 10/15/2020 11:30 AM EDT Telephone Visit Via Phone Call [address] PHYSIC[facility] [address] [place] [phone] Telephone Visit [facility] 10/15/2020 Liliam Corey CNP Provider Location: Office Patient Location Customer Operations Associate: None Patient Location: Patient's Home Patient: Liz Wadsworth Date of : 1950 (70 y.o. female) PCP: Paul Hurley MD I discussed risks, benefits and alternatives of a telephone visit telemedicine consultation with the patient (and any accompanying persons) including the risks that the patient's personal health details and medical records will be discussed over real-time, synchronous, interactive audio technology,the visit will not be recorded without the express consent of both the provider and the patient, and that there are inherent diagnostic limitations compared to jzgs-[id number] evaluations. We elected toproceed with the telephone visit telemedicine consultation. MICHAEL Hill is a [address] of Dr[address] Paul Hurley MD. History includes COPD, HTN, DM type 2, CHF, Asthma. Currently on Albuterol PRN - Pharmacy reports frequent use by the patient. She reports she utilizesthe medication QID secondary to SOB. Did discuss switching to daily inhaler to improve breathing. She is agreeable to this. The following portions of the patient's history were reviewed and updated as appropriate: allergies, current medications, past family history, past medical history, past social history, past surgicalhistory and problem list. Review of Systems Constitutional: Negative for activity change, appetite change, chills, fatigue, fever and unexpected weight change. HENT: Negative for congestion, sinus pressure and sinus pain. Eyes: Negative for visual disturbance. Respiratory: Positive for shortness of breath (chronic, controlled with PRN medications ). Negativefor apnea, cough, choking, chest tightness, wheezing and [...] and Plan of Care. documented in this [id number] Miscellaneous Notes* Telephone Encounter - Yoselin Pathak Lpn - 11/11/2010 5:07 PM EDT Tried to call pt. Could not get through. * Telephone Encounter - Yoselin Pathak Lpn - 11/11/2010 4:45 PM EDT The following approved medication requests have been transmitted electronically. Approved Prescriptions Disp Refills furosemide 20 mg ORAL tablet 30 tablet 5 Sig: Take 1 tablet by mouth once daily. Use instead of triam/HCTZ since not available Authorizing Provider: [place] ANDERSON Lpn * Telephone Encounter - Ny Anderson - 11/10/2010 6:22 PM EDT Can use Lasix for now. Should get labs updated in 1 to 2 week as already ordered so can make sure potassium and renal function are okay, plus due for updating labs. She missed October appointment and didnot get labs that were ordered for that appointment. Can reorder labs if needed (if ). * Telephone Encounter - Alicia Hardy Lpn - 11/10/2010 3:37 PM EDT [facility] calling-states that dyazide (and maxide) are both on national shortage-unable to get andunsure how long it will be. Asking for medication to replace Dyazide please review and advise Thank You, Alicia Hardy LPN [facility] History of Past illness Narrative* Problem Noted Date Resolved Date Other abnormal blood chemistry 10/01/2005 0 10/20/2005 documented as of this encounter (statuses as of 10/09/2020) [facility]* Diagnosis Edema- Primary HYPERTENSION NOS Unspecified essential hypertension documented in this encounter [facility] note* Diagnosis Encounter for screening colonoscopy for [id number] patient- Primary Chronic obstructive pulmonary disease, unspecified COPD type (HCC)- Primary Mild intermittent asthma without complication Encounter for screening colonoscopy for qsi-fmoc-[id number] patient documented in this encounter [facility] note* Diagnosis Encounter for screening colonoscopy for ixv-bots-xpct patient- Primary Encounter for screening colonoscopy for emy-kydm-[id number] patient- Primary Encounter for screening colonoscopy for tlm-roin-ktbb patient documented in this encounter [facility] note* Diagnosis Encounter for screening colonoscopy for [id number] patient- Primary Sars-associated coronavirus as the cause of diseases classified elsewhere- Primary Encounter for screening colonoscopy for qqt-husa-rfrd patient documented in this encounter [facility] note* Diagnosis Encounter for screening colonoscopy for igw-fiqx-sofy patient- Primary Encounter for screening colonoscopy for huy-wdfa-zcng patient- Primary Encounter for screening colonoscopy for dty-mtgc-[id number] [facility] Diagnosis Encounter for screening colonoscopy for itd-rofs-pzno patient- Primary Chronic obstructive pulmonary disease, unspecified COPD type (HCC) Mild intermittent asthma without complication Encounter for screening colonoscopy for dmg-pzaq-fris patient [facility]* Diagnosis Essential (primary) hypertension Unspecified essential [facility] Diagnosis Onset Date Resolution Status Dyslipidemia acute Palpitations acute Essential hypertension chron ic SOB (shortness of breath) ronic Essential hypertension chron ic GERD (gastroesophageal reflux disease) chronic Lymphedema chronic Type 2 diabetes mellitus chr on Morbid obesity acute DOLORES (obstructive sleep apnea) acute SOB (shortness of breath) [facility] Work Phone: Evaluation note* Diagnosis Onset Date Resolution Status Essential hypertension chron ic GERD (gastroesophageal reflux disease) chronic Lymphedema chronic Type 2 diabetes mellitus [facility] on Morbid obesity acute DOLORES (obstructive sleep apnea) acute SOB (shortness of breath) [facility] Morbid obesity with BMI of 45.0-49.9, adult acute Chronic respiratory failure with hypoxia chronic COPD (chronic obstructive pulmonary disease) [facility] Work Phone: Evaluation note* Diagnosis Essential (primary) hypertension Unspecified essential hypertension [facility]* Diagnosis Onset Date Resolution Status Essential hypertension chron ic GERD (gastroesophageal reflux disease) chronic Lymphedema chronic Type 2 diabetes mellitus [facility] on Morbid obesity acute DOLORES (obstructive sleep apnea) acute SOB (shortness of breath) [facility] Morbid obesity with BMI of 45.0-49.9, adult acute Chronic respiratory failure with hypoxia chronic COPD (chronic obstructive pulmonary disease) chronic Sore throat acute Dermatitis chronic Essential hypertension chron ic Type 2 diabetes mellitus [facility] Work Phone: Evaluation note* Diagnosis Essential (primary) hypertension Unspecified essential hypertension [facility]* Diagnosis Onset Date Resolution Status Morbid obesity with BMI of 45.0-49.9, adult acute Chronic respiratory failure with hypoxia chronic COPD (chronic obstructive pulmonary disease) chronic Sore throat acute Dermatitis chronic Essential hypertension chron ic Type 2 diabetes mellitus [facility] care maintenance acut e Chronic respiratory failure with hypoxia chronic COPD (chronic obstructive pulmonary disease) chronic Essential hypertension chron ic GERD (gastroesophageal reflux disease) chronic Type 2 diabetes mellitus chr onic Ulcer of right lower extremity chronic [facility] Work Phone: Evaluation note* Diagnosis Onset Date Resolution Status Sore throat acute Dermatitis chronic Essential hypertension chron ic Type 2 diabetes mellitus chr onic Health care maintenance acut e Chronic respiratory failure with hypoxia chronic COPD (chronic obstructive pulmonary disease) chronic Essential hypertension chron ic GERD (gastroesophageal reflux disease) chronic Type 2 diabetes mellitus chr onic Ulcer of right lower extremity chronic Edema of both lower extremities acute PVD (peripheral vascular disease) acute Venous insufficiency acute Essential hypertension chron ic Lymphedema chronic Type 2 diabetes mellitus chr onic Edema of both lower extremities acute PVD (peripheral vascular disease) acute Venous insufficiency acute Essential hypertension chron ic Lymphedema chronic Type 2 diabetes mellitus chr onic [facility] Work Phone: Evaluation note* Diagnosis Onset Date Resolution Status Chronic respiratory failure with hypoxia chronic COPD (chronic obstructive pulmonary disease) chronic Essential hypertension chron ic GERD (gastroesophageal reflux disease) chronic Type 2 diabetes mellitus chr onic Edema of both lower extremities acute Essential hypertension chron ic Lymphedema chronic PVD (peripheral vascular disease) chronic Type 2 diabetes mellitus chr onic Venous insufficiency chronic Edema of both lower extremities acute Essential hypertension chron ic Lymphedema chronic PVD (peripheral vascular disease) chronic Type 2 diabetes mellitus chr onic Venous insufficiency chronic 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 DOLORES (obstructive sleep apnea) acute Chronic hypoxemic respiratory failure chronic Edema of both lower extremities acute Essential hypertension chron ic Lymphedema chronic PVD (peripheral vascular disease) chronic Type 2 diabetes mellitus chr onic Venous insufficiency chronic Edema of both lower extremities acute Morbid obesity with BMI of 45.0-49.9, adult acute DVT, bilateral lower limbs c hronic PVD (peripheral vascular disease) chronic Venous insufficiency chronic DVT, bilateral lower limbs c hronic Abdominal pain chronic Difficulty swallowing chroni c DVT, bilateral lower limbs c hronic Essential hypertension chron ic Type 2 diabetes mellitus chr onic Venous insufficiency chronic DVT, bilateral lower limbs c hronic Pulmonary hypertension chron [facility] Work Phone: Evaluation note* Diagnosis Onset Date Resolution Status Edema of both lower extremities acute Essential hypertension chron ic Lymphedema chronic PVD (peripheral vascular disease) chronic Type 2 diabetes mellitus chr onic Venous insufficiency chronic Edema of both lower extremities acute Essential hypertension chron ic Lymphedema chronic PVD (peripheral vascular disease) chronic Type 2 diabetes mellitus chr onic Venous insufficiency chronic 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 DOLORES (obstructive sleep apnea) acute Chronic hypoxemic respiratory failure chronic Edema of both lower extremities acute Essential hypertension chron ic Lymphedema chronic PVD (peripheral vascular disease) chronic Type 2 diabetes mellitus chr onic Venous insufficiency chronic Edema of both lower extremities acute Morbid obesity with BMI of 45.0-49.9, adult acute DVT, bilateral lower limbs c hronic PVD (peripheral vascular disease) chronic Venous insufficiency chronic DVT, bilateral lower limbs c hronic Abdominal pain chronic Difficulty swallowing chroni c DVT, bilateral lower limbs c hronic Essential hypertension chron ic Type 2 diabetes mellitus chr onic Venous insufficiency chronic DVT, bilateral lower limbs c hronic Pulmonary hypertension chron ic Difficulty swallowing chroni c [facility] Work Phone: Evaluation note* Diagnosis Hypercholesteremia Pure hypercholesterolemia [facility]* Diagnosis Onset Date Resolution Status Venous insufficiency chronic DVT, bilateral lower limbs c hronic Abdominal pain chronic Difficulty swallowing chroni c DVT, bilateral lower limbs c hronic Essential hypertension chron ic Type 2 diabetes mellitus chr onic Venous insufficiency chronic DVT, bilateral lower limbs c hronic Pulmonary hypertension chron ic Difficulty swallowing chroni c Essential hypertension chron ic Gastric ulcer chronic Gastric ulcer chronic DVT, bilateral lower limbs c hronic Pulmonary hypertension chron ic ATKINS (dyspnea on exertion) [place] Essential hypertension chron ic Hyperlipidemia chronic Palpitations resolved Edema of both lower extremities chronic Essential hypertension chron ic Urinary incontinence with continuous leakage chronic Venous insufficiency chronic [facility] Work Phone: Evaluation note* Diagnosis Onset Date Resolution Status Abdominal pain chronic Difficulty swallowing chroni c DVT, bilateral lower limbs c hronic Essential hypertension chron ic Type 2 diabetes mellitus chr onic Venous insufficiency chronic DVT, bilateral lower limbs c hronic Pulmonary hypertension chron ic Difficulty swallowing chroni c Essential hypertension chron ic Gastric ulcer chronic Gastric ulcer chronic DVT, bilateral lower limbs c hronic Pulmonary hypertension chron ic ATKINS (dyspnea on exertion) [place] Essential hypertension chron ic Hyperlipidemia chronic Palpitations resolved Edema of both lower extremities chronic Essential hypertension chron ic Urinary incontinence with continuous leakage chronic Venous insufficiency chronic Wound of left lower extremity acute [facility] Work Phone: Evaluation note* Diagnosis Onset Date Resolution Status Difficulty swallowing chroni c Essential hypertension chron ic Gastric ulcer chronic Gastric ulcer chronic DVT, bilateral lower limbs c hronic Pulmonary hypertension chron ic ATKINS (dyspnea on exertion) [place] Essential hypertension chron ic Hyperlipidemia chronic Palpitations resolved Edema of both lower extremities chronic Essential hypertension chron ic Urinary incontinence with continuous leakage chronic Venous insufficiency chronic Wound of left lower extremity acute 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, limited to breakdown skin acute DVT, bilateral lower limbs c hronic Edema of both lower extremities chronic Lymphedema chronic [facility] Work Phone: Evaluation note* Diagnosis Onset Date Resolution Status Essential hypertension chron ic Gastric ulcer chronic Gastric ulcer chronic DVT, bilateral lower limbs c hronic Pulmonary hypertension chron ic ATKINS (dyspnea on exertion) [place] Essential hypertension chron ic Hyperlipidemia chronic Palpitations resolved Edema of both lower extremities chronic Essential hypertension chron ic Urinary incontinence with continuous leakage chronic Venous insufficiency chronic Wound of left lower extremity acute 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, limited to breakdown skin acute DVT, bilateral lower limbs c hronic Edema of both lower extremities chronic Lymphedema chronic DVT, bilateral lower limbs c hronic Pulmonary hypertension chron ic 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 Work Phone: Evaluation note* Diagnosis Onset Date Resolution Status Shingles acute Hyperlipidemia chronic Hypothyroidism chronic Type 2 diabetes mellitus chr onic Venous insufficiency chronic DVT, bilateral lower limbs c hronic Edema of both lower extremities chronic Essential hypertension chron ic Hypothyroidism chronic Left knee pain chronic Type 2 diabetes mellitus chr onic 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 Chronic hypoxemic respiratory failure chronic DOLORES (obstructive sleep apnea) [facility] Work Phone: Evaluation note* Diagnosis Onset Date Resolution Status Edema of both lower extremities chronic Essential hypertension chron ic Hypothyroidism chronic Left knee pain chronic Type 2 diabetes mellitus chr onic DVT, bilateral lower limbs c hronic ATKINS (dyspnea on exertion) [place] Essential hypertension chron ic Hyperlipidemia chronic Palpitations resolved 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 Chronic hypoxemic respiratory failure chronic DOLORES (obstructive sleep apnea) chronic DVT, bilateral lower limbs c [facility] Work Phone: Evaluation note* Diagnosis Onset Date Resolution Status DVT, bilateral lower limbs c hronic Debility acute Osteoarthritis acute Venous ulcer of right lower extremity without varicose veins acute Chronic respiratory failure with hypoxia chronic COPD (chronic obstructive pulmonary disease) chronic Edema of both lower extremities chronic Hypothyroidism chronic Lymphedema chronic Morbid obesity with BMI of 45.0-49.9, adult chronic DOLORES (obstructive sleep apnea) chronic Pulmonary hypertension chron ic Type 2 diabetes mellitus chr onic Venous insufficiency chronic [facility] Work Phone: Evaluation note* Diagnosis Onset Date Resolution Status DVT, bilateral lower limbs c hronic Debility acute Osteoarthritis acute Chronic respiratory failure with hypoxia chronic COPD (chronic obstructive pulmonary disease) chronic Edema of both lower extremities chronic Hypothyroidism chronic Lymphedema chronic Morbid obesity with BMI of 45.0-49.9, adult chronic DOLORES (obstructive sleep apnea) chronic Pulmonary hypertension chron ic Type 2 diabetes mellitus chr onic Venous insufficiency chronic Venous ulcer of right lower extremity without varicose veins chronic Venous ulcer of right lower extremity without varicose veins chronic Debility acute Osteoarthritis acute Chronic hypoxemic respiratory failure chronic COPD (chronic obstructive pulmonary disease) chronic Edema of both lower extremities chronic Hypothyroidism chronic Lymphedema chronic Morbid obesity with BMI of 45.0-49.9, adult chronic DOLORES (obstructive sleep apnea) chronic Pulmonary hypertension chron ic Type 2 diabetes mellitus chr onic Venous insufficiency chronic Venous ulcer of right lower extremity without varicose veins chronic Abnormal laboratory test acu te DVT, bilateral lower limbs c [facility] Work Phone: Evaluation note* Diagnosis Onset Date Resolution Status Debility acute Osteoarthritis acute Chronic respiratory failure with hypoxia chronic COPD (chronic obstructive pulmonary disease) chronic Edema of both lower extremities chronic Hypothyroidism chronic Lymphedema chronic Morbid obesity with BMI of 45.0-49.9, adult chronic DOLORES (obstructive sleep apnea) chronic Pulmonary hypertension chron ic Type 2 diabetes mellitus chr onic Venous insufficiency chronic Venous ulcer of right lower extremity without varicose veins chronic Venous ulcer of right lower extremity without varicose veins chronic Debility acute Osteoarthritis acute Chronic hypoxemic respiratory failure chronic COPD (chronic obstructive pulmonary disease) chronic Edema of both lower extremities chronic Hypothyroidism chronic Lymphedema chronic Morbid obesity with BMI of 45.0-49.9, adult chronic DOLORES (obstructive sleep apnea) chronic Pulmonary hypertension chron ic Type 2 diabetes mellitus chr onic Venous insufficiency chronic Venous ulcer of right lower extremity without varicose veins chronic Abnormal laboratory test acu te DVT, bilateral lower limbs c hronic Abnormal laboratory test acu te DVT, bilateral lower limbs c hronic [facility] Work Phone: Evaluation note* Diagnosis Vertigo- Primary Dizziness and giddiness documented in this encounter [facility] Work Phone: [facility] Work Phone: Hospital Discharge instructionsAmbulatory Orders* Wound Care Location: None Selected [facility] Work Phone: Hospital Discharge instructions Additional Instructions I suspect you have peripheral vertigo which is causing your dizziness. You been prescribed meclizine. You may take this as needed for dizziness. It is common for the symptoms to fluctuate. You been referred to research compliance specialist for follow-up for this. For your leg swelling please continue to follow-up with your primary care doctor. Continue to take your water pill, elevate your legs and wear compression stockings. If you feel like your breathing is worsening or your swelling is worsening please return to the emergency room.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 Advance Directives and Livin g Will 06/02/2019 8:35 PM Documents on File Type Date Recorded 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 Advance Directives and Livin g Will 06/02/2019 8:35 PM Advance Directives and Livin g Will 06/12/2019 10:32 PM Documents on File Type Date Recorded 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 Advance Directives and Livin g Will 06/02/2019 8:35 PM Advance Directives and Livin g Will 01/28/2020 2:45 PM Documents on File Type Date Recorded 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 Advance Directives and Livin g Will 06/02/2019 8:35 PM Advance Directives and Livin g Will 01/28/2020 2:45 PM Documents on File Type Date Recorded 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 Advance Directives and Livin g Will 06/02/2019 8:35 PM Advance Directives and Livin g Will 05/01/2020 11:41 AM Documents on File Type Date Recorded 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 Advance Directives and Livin g Will 06/02/2019 8:35 PM Advance Directives and Livin g Will 05/01/2020 11:41 AM Documents on File Type Date Recorded 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 Advance Directives and Livin g Will 05/01/2020 11:41 AM Advance Directives and Livin g Will 06/02/2019 8:35 PM Documents on File Type Date Recorded 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 Advance Directives and Livin g Will 12/23/2020 2:40 PM Advance Directives and Livin g Will 06/02/2019 8:35 PM Advance Directive Response Recorded Date/ Time Living Will No February 05 1 11:34am Power of Hand Crown Pouncer No February 05 021 11:34am Advance Directive Response Recorded Date/ Time Living Will No December 31, 2021 1:43am Power of Hand [employer] Pouncer No December 31 1:43am Advance Directive Response Recorded Date/ Time Living Will No December 31, 2021 12:43am Power of Hand [employer] Pouncer No December 31 2 12:43am Advance Directive Response Recorded Date/ Time Living Will No June 04 11:25am Power of Hand Crown Pouncer No Arvin 15th, 2022 11:25am Advance Directive Response Recorded Date/ Time Living Will No June 04, 2 022 12:25pm Power of Hand Crown Pouncer No June 04, 2022 12:25pm Advance Directive Response Recorded Date/ Time Living Will No June 20, 023 3:59pm Power of Hand [employer] Pouncer No June 20, 2023 3:59pm Advance Directive Response Recorded Date/ Time Living Will No June 20, 2 023 4:59pm Power of Hand [employer] Pouncer No June 20, 2023 4:59pm Advance Directive Response Recorded Date/ Time Name of Medical Power of Hand Crown Pouncer Daughter September 24, 2023 3:11pm Living Will Yes September 24, 2023 3:11pm Power of Hand [employer] Pouncer Yes September 23 3:11pm Advance Directive Response Recorded Date/ Time Living Will Yes January 20, 2024 8:17am Do you have a Healthcare Pow er of Hand Crown Pouncer? Yes January 20, 2024 8:17am Living Will Yes May 21 1:47am Do you have a Healthcare Pow er of Hand Crown Pouncer? Yes May 21, 2024 1:47am Living Will Yes June 21 1:25am Do you have a Healthcare Pow er of Hand Crown Pouncer? Yes June 21, 2024 1:25am Living Will Yes July 22 1:50am Do you have a Healthcare Pow er of Hand Crown Pouncer? Yes July 22, 2024 1:50am Advance Directives on File No Geoffrey rios 2024 10:00am Living Will Yes July 27 10:00am Do you have a Healthcare Pow er of Hand Crown Pouncer? Yes July 27, 2024 10:00am Name of Medical Power of Hand Crown Pouncer daughter (Kenton purdy) July 27, 2024 10:00am Advance Directives Yes July 27, 2024 10:00am Living Will Yes August 19, 2024 1:41am Do you have a Healthcare Pow er of Hand Crown Pouncer? Yes August 19, 2024 1:41am Advance Directive Response Recorded Date/ Time Living Will Yes January 20, 2024 8:17am Do you have a Healthcare Pow er of Hand Crown Pouncer? Yes January 20, 2024 8:17am Living Will Yes June 21 1:25am Do you have a Healthcare Pow er of Hand Crown Pouncer? Yes June 21, 2024 1:25am Living Will Yes July 22 1:50am Do you have a Healthcare Pow er of Hand Crown Pouncer? Yes July 22, 2024 1:50am Advance Directives on File No Katvernon blanca 2024 10:00am Living Will Yes July 27 10:00am Do you have a Healthcare Pow er of Hand Crown Pouncer? Yes July 27, 2024 10:00am Name of Medical Power of Hand [employer] P[employer] daughter (Kenton sa) July 27, 2024 10:00am Advance Directives Yes July 27, 2024 10:00am Living Will Yes August 19, 2024 1:41am Do you have a Healthcare Pow er of Hand Crown Pouncer? Yes August 19, 2024 1:41am Living Will Yes September 19, 2024 12:40am Do you have a Healthcare Pow er of Hand Crown Pouncer? Yes September 19, 2024 12:40am Living Will Yes October 19, 2024 12 :34am Do you have a Healthcare Pow er of Hand Crown Pouncer? Yes October 19, 2024 12:34am Advance Directive Response Recorded Date/ Time Living Will Yes January 20, 2024 8:17am Do you have a Healthcare Pow er of Hand Crown Pouncer? Yes January 20, 2024 8:17am Living Will Yes July 22 1:50am Do you have a Healthcare Pow er of Hand Crown Pouncer? Yes July 22, 2024 1:50am Advance Directives on File No Geoffrey rios 2024 10:00am Living Will Yes July 27 10:00am Do you have a Healthcare Pow er of Hand Crown Pouncer? Yes July 27, 2024 10:00am Name of Medical Power of Hand Crown Pouncer daughter (Kenton purdy) July 27, 2024 10:00am Advance Directives Yes July 27, 2024 10:00am Living Will Yes August 19, 2024 1:41am Do you have a Healthcare Pow er of Hand Crown Pouncer? Yes August 19, 2024 1:41am Living Will Yes September 19, 2024 12:40am Do you have a Healthcare Pow er of Hand Crown Pouncer? Yes September 19, 2024 12:40am Living Will Yes October 19, 2024 12 :34am Do you have a Healthcare Pow er of Hand Crown Pouncer? Yes October 19, 2024 12:34am Advance Directive Response Recorded Date/ Time Living Will Yes January 20, 2024 8:17am Do you have a Healthcare Power of Hand Crown Pouncer? Yes January 20, 2024 8:17am Living Will Yes July 22 1:50am Do you have a Healthcare Power of Hand Crown Pouncer? Yes July 22, 2024 1:50am Living Will Yes November 19, 2024 1 2:36am Do you have a Healthcare Power of Hand Crown Pouncer? Yes November 19, 2024 12:36am Do you have a Healthcare Power of Hand Crown Pouncer? Yes November 27, 2024 6:06pm Living Will Yes August 19, 2024 1:41am Do you have a Healthcare Power of Hand Crown Pouncer? Yes August 19, 2024 1:41am Living Will Yes September 19, 2024 12:40am Do you have a Healthcare Power of Hand Crown Pouncer? Yes September 19, 2024 12:40am Living Will Yes October 19, 2024 12 :34am Do you have a Healthcare Power of Hand Crown Pouncer? Yes October 19, 2024 12:34am Advance Directives Yes July 27, 2024 10:00am Advance Directive Response Recorded Date/ Time Living Will Yes January 20, 2024 8:17am Do you have a Healthcare Power of Hand Crown Pouncer? Yes January 20, 2024 8:17am Living Will Yes November 19, 2024 1 2:36am Do you have a Healthcare Power of Hand Crown Pouncer? Yes November 19, 2024 12:36am Do you have a Healthcare Power of Hand Crown Pouncer? Yes November 27, 2024 6:06pm Living Will Yes August 19, 2024 1:41am Do you have a Healthcare Power of Hand Crown Pouncer? Yes August 19, 2024 1:41am Living Will Yes September 19, 2024 12:40am Do you have a Healthcare Power of Hand Crown Pouncer? Yes September 19, 2024 12:40am Living Will Yes October 19, 2024 12 :34am Do you have a Healthcare Power of Hand Crown Pouncer? Yes October 19, 2024 12:34am Advance Directives Yes July 27, 2024 10:00am Advance Directive Response Recorded Date/ Time Living Will Yes January 20, 2024 8:17am Do you have a Healthcare Power of Hand Crown Pouncer? Yes January 20, 2024 8:17am Living Will Yes November 19, 2024 1 2:36am Do you have a Healthcare Power of Hand Crown Pouncer? Yes November 19, 2024 12:36am Do you have a Healthcare Power of Hand Crown Pouncer? Yes November 27, 2024 6:06pm Living Will Yes September 19, 2024 12:40am Do you have a Healthcare Power of Hand Crown Pouncer? Yes September 19, 2024 12:40am Living Will Yes October 19, 2024 12 :34am Do you have a Healthcare Power of Hand Crown Pouncer? Yes October 19, 2024 12:34am Advance Directives Yes July 27, 2024 10:00am Advance Directive Response Recorded Date/ Time Living Will Yes January 20, 2024 8:17am Do you have a Healthcare Power of Hand Crown Pouncer? Yes January 20, 2024 8:17am Living Will Yes November 19, 2024 1 2:36am Do you have a Healthcare Power of Hand Crown Pouncer? Yes November 19, 2024 12:36am Do you have a Healthcare Power of Hand Crown Pouncer? Yes November 27, 2024 6:06pm Living Will Yes October 19, 2024 12 :34am Do you have a Healthcare Power of Hand Crown Pouncer? Yes October 19, 2024 12:34am Advance Directives Yes July 27, 2024 10:00am Advance Directive Response Recorded Date/ Time Living Will Yes November 19, 2024 1 2:36am Do you have a Healthcare Power of Hand Crown Pouncer? Yes November 19, 2024 12:36am Do you have a Healthcare Power of Hand Crown Pouncer? Yes November 27, 2024 6:06pm Advance Directives Yes July 27, 2024 10:00am Advance Directive Response Recorded Date/ Time Living Will No December 31, 2021 1:43am Do you have a Healthcare Power of Hand Crown Pouncer? No December 31, 2021 1:43am Living Will Yes November 19, 2024 1 2:36am Do you have a Healthcare Power of Hand Crown Pouncer? Yes November 19, 2024 12:36am Advance Directives Yes July 27, 2024 10:00am Procedure Findings Note [facility] [address] [address] NAME LIZ WADSWORTH NICK [id number] 1950 DATE 03/29/2018 OPERATIVE REPORT / PROCEDURE NOTE SURGEON MARCELO COPELAND, PREOPERATIVE DIAGNOSIS Left carpal tunnel syndrome. POSTOPERATIVE [...] a small (more content not included)... Note [facility] [address] [place] [address] NAME LIZ [facility] [id number] 1950 DATE 07/08/2018 OPERATIVE REPORT / PROCEDURE NOTE SURGEON MARCELO COPELAND DO PREOPERATIVE DIAGNOSIS Right carpal tunnel syndrome. POSTOPERATIVE [...] joint Trochanteric bursitis of left hip Marjorie Narayanan, DO [address] [facility], [place] [address] [facility] [address] [place] [address] Status Reason Specialty Diagnoses / Procedures Referre d By Contact Referred To Contact Camila Olson, PT Status Reason Specialty Diagnoses / Procedures Referred By Contact Referred To Contact New Request Physical Therapy Diagnoses Sacroiliac joint pain Lumbosacral radiculopathy DDD (degenerative disc disease), 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 Yovannytheo Marjorie Ramsey, DO [address] [facility], [place] [address] [facility] [address] [place] [phone] Status Reason Specialty Diagnoses / Procedures Referred By Contact Referred To Contact New Request Physical Therapy Diagnoses Lumbosacral radiculopathy Sacroiliac joint pain Low back pain, unspecified back pain laterality, unspecified chronicity, with sciatica presence unspecified Trochanteric bursitis of left hip Marjorie Narayanan Gerald, DO [address] [facility], [place] [address] [facility] [address] [place] [phone] Status Reason Specialty Diagnoses / Procedures Referred By Contact Referred To Contact New Request Physical Therapy Diagnoses Lumbar facet joint pain Discogenic low back pain DDD (degenerative disc disease), 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 Class 3 severe obesity with body mass index (BMI) of 50.0 to 59.9 in adult, unspecified obesity type, unspecified whether serious comorbidity present Marjorie Narayanan, DO [address] [place] [address] [facility] [address] [place] [phone] Status Reason Specialty Diagnoses / Procedures Referre d By Contact Referred To Contact Noe Hdz P[facility] [address] [place] [id number] Status Reason Specialty Diagnoses / Procedures Referred By Contact Referred To Contact Pending Review Gastroenterology Diagnoses Encounter for screening colonoscopy Paul Hurley MD [address] [place] [address] Zeferino Alicia MD [address] [place] [address] Status Reason Specialty Diagnoses / Procedures Referred By Contact Referred To Contact Authorized Radiology Diagnoses Well adult health check Procedures Mammography Screening Bilateral Paul Hurley MD [address] [place] [address] [phone] Status Reason Specialty Diagnoses / Procedures Referre d By Contact Referred To Contact Closed Radiology Diagnoses Well adult health check Procedures Mammography Screening Bilateral Paul Hurley MD [address] [place] [address] [phone] Status Reason Specialty Diagnoses / Procedures Referred By Contact Referred To Contact Pending Review Specialty Services Required/Briana ent's Best Interest Gastroenterology Diagnoses Encounter for screening colonoscopy Paul Hurley MD [address] [place] [address] Zeferino Alicia MD [address] [place] [id number] Status Reason Specialty Diagnoses / Procedures Referred By Contact Referred To Contact Authorized Specialty Services Required/Patien t's Best Interest Radiology Diagnoses Age-related osteoporosis without current pathological fracture Procedures XR Bone Density DEXA Axial Paul Hurley MD [address] [place] [address] [phone] Status Reason Specialty Diagnoses / Procedures Referred By Contact Referred To Contact Pending Review Ophthalmology Diagnoses Type 2 diabetes mellitus with diabetic polyneuropathy, without long-term current use of insulin (HCC) Paul Hurley MD [address] [place] [phone] Status Reason Specialty Diagnoses / Procedures Referred By Contact Referred To Contact Pending Review Specialty Services Required/Patijennifer nt's Best Interest Podiatry Diagnoses Type 2 diabetes mellitus with diabetic polyneuropathy, without long-term current use of insulin (HCC) Paul Hurley MD [address] [place] [phone] Tyler Joseph, SHAY [address] [place] [address] Status Reason Specialty Diagnoses / Procedures Referred By Contact Referred To Contact Pending Review Specialty Services Required/Maty t's Best Interest Cardiology Diagnoses Chronic diastolic congestive heart failure (HCC) Procedures Echocardiogram complete Paul Hurley MD [address] [place] [address] [place] [phone] Status Reason Specialty Diagnoses / Procedures Referred By Contact Referred To Contact Authorized Specialty Services Required/Patijennifer nt's Best Interest Gastroenterology Diagnoses Type 2 diabetes mellitus with diabetic polyneuropathy, without long-term current use of insulin ([facility]) Paul Hurley MD [address] [id number] Zeferino Alicia MD [address] [place] [address] Status Reason Specialty Diagnoses / Procedures Referred By Contact Referred To Contact New Request Diagnoses Lumbar facet joint pain Osteoarthritis of facet joint of lumbar spine DDD (degenerative disc disease), lumbosacral Chronic low back pain, unspecified back pain laterality, with sciatica presence unspecified Procedures MRI SPINE LUMBAR WITHOUT CONTRAST [facility], LUMBAR SPINE Marjorie Narayanan, [address] [place] [address] Status Reason Specialty Diagnoses / Procedures Referred By Contact Referred To Contact Pending Review Magnetic Resonance Imaging Diagnoses Lumbar facet joint pain Osteoarthritis of facet joint of lumbar spine DDD (degenerative disc disease), lumbosacral Chronic low back pain, unspecified back pain laterality, with sciatica presence unspecified Procedures MRI SPINE LUMBAR WITHOUT CONTRAST [facility] MRI, LUMBAR SPINE Marjorie Narayanan, DO [address] [id number] [facility] [address] [place] [address] History of Present Illness * Marjorie Narayanan, - 09/16/2018 8:00 AM EDT New Patient Office Note - [facility] PATIENT IDENTIFICATION: 68 y.o. female with a history of CHF, diabetes, diabetic neuropathy, obesity, right total knee arthroplasty, lower extremity cellulitis, who was referred by Dr. Gonzalez in [facility] for low back and left lower extremity discomfort that started and early to mid August 2018 with no particular inciting event. Chief Complaint Patient presents with Back Pain [place]: LBP and L LE pain and paresthesia The patient's family/friend () was present and supplemented the history. PHYSICAL EXAM: Height 1.676 m (5' 6), weight (!) 145.2 kg (320 lb). Psych: [...] atheromatous plaque. LABS: Outside blood work from [facility] 12/30/17: AST 17, ALT 24, creatinine 0.86, [...] penicillins. The above report was entered using webtide voice recognition medical dictation software. Although I have reviewed this report for accuracy, certain words and phrases may not be entered as intended. * Stephanie Maria - 09/16/2018 8:00 AM EDT documented in this encounter* Camila Olson, PT - 09/26/2018 9:11 AM EDT PHYSICAL THERAPY LUMBAR & THORACIC INITIAL EVALUATION Date: 09/26/2018 Physician: Marjorie Narayanan, Next Visit: 10-07-18 Liz Wadsworth 1950 Medical Diagnosis: 1. Lumbosacral radiculopathy 2. Sacroiliac joint pain 3. Pain of left hip joint 4. Trochanteric bursitis of left hip HISTORY: Liz Wadsworth is a 68 y.o. patient who presents [...] the ER, and was referred to Dr. Narayanan. Saw Dr. Narayanan for LBP/hip pain at the end of [...] ADL, [] Required Ambulatory Assistive Device, [] Mixed Crop Farmer, [] Difficulty or Inability to Negotiate Stairs, [...] continued support of our clinic here at [facility] [place]. Camila Olson, PT, 09/26/2018 documented in this [...] Therapist Signature: Camila Olson, PT Time in: 1000 Time out: 1045 Total Visit Time: 45 Min Total Treatment Time: 45 minutes Timed Code Treatment Minutes: 45 minutes Overall PT Visit Number: 3 Visit(s) PT G-Code Visit Number: 3 G-Code Visit(s) x3 [x] Therapeutic Exercise 26257 [] Neuromuscular Reeducation 72418 [] Manual Therapy 06224 [] Mechanical Traction 34952 [] Gait Training 00588 [] Iontophoresis 42402 [] Ultrasound 94757 [] Electric Stimulation 47850 documented in this encounter* Marjorie Narayanan, DO - 10/07/2018 10:00 AM EDT PATIENT IDENTIFICATION: 68 y.o. female with a history of CHF, diabetes, diabetic neuropathy, obesity, right total knee arthroplasty, lower extremity cellulitis, who was referred by Dr. Gonzalez in [facility] for low back and left lower extremity discomfort that started and early to mid August 2018 with no particular inciting event. Chief Complaint Patient presents with Back Pain [place]: LBP and L LE posterior thigh pain and paresthesia. Bilateral distal lower extremity paresthesia in a stocking pattern distal to the knees consistent with her history of diabetic neuropathy. The patient's family/friend () was present and supplemented the history. PHYSICAL EXAM: Height 1.676 m (5' 6), weight (!) 145.2 kg (320 lb). EOMI [...] atheromatous plaque. LABS: Outside blood work from [facility] 12/30/17: AST 17, ALT 24, creatinine 0.86, [...] penicillins. The above report was entered using webtide voice recognition medical dictation software. Although I [...] ABD TB/Hip ADD 1x10x5 ADD; RTB w/ [id number] DL/SL Neuromuscular Re-education (Nm): Standing hip 3-way [...] 5 G-Code Visit(s) x3 [x] Therapeutic Exercise 42419 [] Neuromuscular Reeducation 19263 [] Manual Therapy 72462 [] Mechanical Traction 02673 [] Gait Training 52595 [] Iontophoresis 89827 [] Ultrasound 61548 x1 [x] Electric Stimulation 18812 documented in this encounter* Camila Olson, PT [...] ABD TB/Hip ADD 1x10x5 ADD; RTB w/ [id number] DL/SL Neuromuscular Re-education (Nm): abdominla bracnf in standing 10x10, increased difficulty. Standing hip 3-way tap/step lateral [...] 6 G-Code Visit(s) x3 [x] Therapeutic Exercise 06881 [] Neuromuscular Reeducation 44508 [] Manual Therapy 54708 [] Mechanical Traction 13345 [] Gait Training 53440 [] Iontophoresis 54027 [] Ultrasound 10351 x1 [x] Electric Stimulation 47713 documented in this encounter* Marjorie Narayanan, DO - 10/18/2018 10:30 AM EDT PATIENT IDENTIFICATION: 68 y.o. female with a history of CHF, diabetes, diabetic neuropathy, obesity, right total knee arthroplasty, lower extremity cellulitis, who was referred by Dr. Gonzalez in the for low back and left lower extremity discomfort that started and early to mid August 2018 with no particular inciting event. Chief Complaint Patient presents with Back Pain [place]: LBP and L LE posterior thigh pain and paresthesia. Bilateral distal lower extremity paresthesia in a stocking pattern distal to the knees consistent with her history of diabetic neuropathy. She is improving The patient's family/friend () was present and supplemented the history. PHYSICAL EXAM: Height 1.676 m (5' 6), weight (!) 147 kg (324 lb). EOMI [...] atheromatous plaque. LABS: Outside blood work from [facility] 12/30/17: AST 17, ALT 24, creatinine 0.86, [...] penicillins. The above report was entered using webtide voice recognition medical dictation software. Although I [...] August 1x10 Diagonal august over flat cone [id number]-mfknsg in chair. Kick 1x10 Walk outs 1x10 SLR Opposite UE/LE 5z19-lby completed Seated scap squeezes HEP Seated rows TB 2x10 RTB-chair Biceps curl MB 3#, [id number] Bridges Glute sets HEP Hip ABD TB/Hip ADD 1x20x5 ADD; -chair RTB w/ ABD 0k29-58 DL/SL Neuromuscular Re-education (Nm): abdominal bracing in standing 10x10, increased difficulty. Standing hip 3-way tap/step lateral/posterior [...] and POC next visit. Therapist Signature: Camila Olson, PT Time in: 1000 Time out: 1045 Total Visit Time: 45 Min Total Treatment Time: 45 minutes + 10' CP Timed Code Treatment Minutes: 45 minutes Overall PT Visit Number: 9 Visit(s) PT G-Code Visit Number: 9 G-Code Visit(s) x2 [x] Therapeutic Exercise 78979 x1 [x] Neuromuscular Reeducation 12501 [] Manual Therapy 70595 [] Mechanical Traction 56081 [] Gait Training 82998 [] Iontophoresis 71187 [] Ultrasound 85703 [] Electric Stimulation 48385 documented in this encounter* Camila Olson, PT [...] August 1x10 Diagonal august over flat cone 8l47-fzytcm in chair. Kick 1x10 Walk outs 1x10 SLR Opposite UE/LE 0c61-gks completed Seated scap squeezes HEP Seated rows TB 1x15 RTB-chair Biceps curl MB 3#, 0x82-mzwzz Bridges Glute sets HEP Hip ABD TB/Hip ADD 1x20x5 ADD; -chair GTB w/ ABD 3d73-17 DL/SL ` abdominal bracing in standing 10x10, increased difficulty. Standing hip 3-way tap/step lateral/posterior [...] and moving around x3 [x] Therapeutic Exercise 86578 [] Neuromuscular Reeducation 49773 [] Manual Therapy 21384 [] Mechanical Traction 97885 [] Gait Training 24012 [] Iontophoresis 74982 [] Ultrasound 32119 x1 [x] Electric Stimulation 72512 documented in this encounter* Camila Olson, PT [...] March 1x10 Diagonal march over flat cone [id number]-jamkqx in chair. Kick 1x10 Walk outs 1x10 Opposite UE/LE 5e14-jha completed Seated scap squeezes HEP Seated rows TB 1x15 GTB-chair Biceps curl MB 3#, [id number]-[id number] Bridges Glute sets HEP Hip ABD TB/Hip ADD 1x20x5 ADD; -chair GTB w/ ABD 2e98-30 DL/SL ` abdominal bracing in standing 10x10, increased difficulty. Standing hip 3-way tap/step 1x10 [...] 11 G-Code Visit(s) x3 [x] Therapeutic Exercise 00176 [] Neuromuscular Reeducation 39733 [] Manual Therapy 50662 [] Mechanical Traction 90872 [] Gait Training 51969 [] Iontophoresis 59406 [] Ultrasound 51814 x1 [x] Electric Stimulation 15125 documented in this encounter* Marjorie Narayanan, - 11/22/2018 11:30 AM EDT PATIENT IDENTIFICATION: 68 y.o. female with a history of CHF, diabetes, diabetic neuropathy, obesity, right total knee arthroplasty, lower extremity cellulitis, who was referred by Dr. Gonzalez in the for low back and left lower extremity discomfort that started and early to mid August 2018 with no particular inciting event. Chief Complaint Patient presents with Back Pain [place]: She is doing a good bit better. Physical therapy is helping. She's not having any more pain down the left leg for the most part. The patient's family/friend ( and grandson) was present and supplemented the history. PHYSICAL EXAM: Height 1.676 m (5' 6), weight (!) 144.2 kg (318 lb). EOMI [...] atheromatous plaque. LABS: Outside blood work from [facility] 12/30/17: AST 17, ALT 24, creatinine 0.86, [...] penicillins. The above report was entered using webtide voice recognition medical dictation software. Although I [...] Back Pain 1130 Total Visits Attended: 23 Visit(s)/ + 12 (24) Frequency: 2-3x/week Duration: 4 [...] on green SGB 10x10 August 1x15 Diagonal august over flat cone 0x01-fcmrcp in chair. Kick 1x15 Opposite UE/LE 1x15 Seated rows TB 1x15 GTB-chair *not completed* Biceps curl MB 4#, 2j53-aifgb *not completed* Hip ABD TB/Hip ADD - [...] Visit: Plan for discharge next visit to [facility]. Pt instructed to see physician with any worsening of pain. Therapist Signature: Camila Olson PT Time in: 1045 Time out: 1130 Total Visit Time: 45 Min Total Treatment Time: 45 minutes Timed Code Treatment Minutes: 45 minutes Overall PT Visit Number: 23 Visit(s) PT G-Code Visit Number: 23 G-Code Visit(s) x2 [x] Therapeutic Exercise 41084 x1 [x] Neuromuscular Reeducation 13793 [] Manual Therapy 38686 [] Mechanical Traction 98806 [] Gait Training 03098 [] Iontophoresis 37455 [] Ultrasound 18021 x1 [x] Electric Stimulation 60118 documented in this encounter* Camila Olson, PT [...] March 1x15 Diagonal march over flat cone 5b59-ttshcj in chair. Kick 1x15 Opposite UE/LE 1x15 Seated rows TB 1x15 GTB-chair *not completed* Biceps curl MB 4#, 7m06-zdgzb *not completed* Hip ABD TB/Hip ADD - [...] and moving around x2 [x] Therapeutic Exercise 82552 [x] Neuromuscular Reeducation 38822 [] Manual Therapy 77657 [] Mechanical Traction 21398 [] Gait Training 89309 [] Iontophoresis 19182 [] Ultrasound 67942 x1 [x] Electric Stimulation 65142 documented in this encounter* Marti Robison RN - 06/09/2019 11:[address] Hurley regarding patient prescriptions to be signed for discharge, he stated that he will call his office and the office will call her prescriptions to her pharmacy and that it is okay for patient to discharge. * Marilyn Pantoja MD - 06/09/2019 10:31 AM EST 06/06/2019 Patient Name: Liz Wadsworth Admit Date: 12120629 MR #: [id number] : 1950 Physicians: Paul Hurley MD (Family); No ref. provider found (Referring) Assessment and Plan: Impression New venous dermatitis Bilateral lower extremity cellulitis Bilateral venous insufficiency History of pulmonary edema Right prosthetic knee History of allergy to penicillin with nausea Patient on statin watch for interaction with Diflucan New candidiasis of skin New complaint of burning with Katelynn bandages Plan DC Diflucan DC Ancef P.o. Keflex 500 twice daily for 1 week Tubigrip to the lower extremities Follow-up in the wound clinic on 19 June at 10:45 AM Tubigrip to both lower extremities during the daytime Previous note Diflucan 200 mg p.o. daily continue last dose will be tomorrow Lotrisone to the right and left leg skin once a day Katelynn bandage to both lower extremities for venous insufficiency swelling to be discontinued because she complained of burning with the Katelynn bandages will go back to Tubigrip I Change Ancef 2 g IV every 8h for complete resolution by Wednesday Arterial Dopplers KELTON normal Venous Dopplers negative for DVT Discontinue all dressings Katelynn bandage with Lotrisone Consider Unna compression bilaterally [...] by Dr. Marilyn MD on 06/03/2019 Liz Wadsworth is a 69 y.o. female presenting from doctor's office with a cellulitis of the lower extremities unresolved for several months. Had a trial of oral antibiotic, failed outpatient treatment. Elderly white female states that since March she had right and left anterior leg area blisters was seeing Dr. Joseph had silver dressings when he saw her on [place] they noticed increased redness Acticoat silver was [...] 1300 Stool: not recorded PACU Vitals 06/09/19 08 BP: 135/78 Pulse: 63 Resp: 16 Temp: [...] Paul Hurley MD, 40 mg at 06/09/19 0817 gabapentin (NEURONTIN) capsule 100 mg, 100 mg, Oral, Nightly, Abilio Sanders MD, 100 mg at 06/08/192223 naloxone (NARCAN) injection 0.1 mg, 0.1 mg, [...] Daily, Abilio Sanders MD, 40 mg at 06/08/192224 spironolactone (ALDACTONE) tablet 25 mg, 25 mg, Oral, Daily, Paul Hurley MD, 25 mg at 06/09/19816 PMH/PSH/SH/FH reviewed, no change except: She is [...] Normal Mariela After 48 Hours. Final. Radiology [facility]: MRI Lumbar Spine 01/30/2019 1. At L4-L5, there is degenerative grade 1 anterolisthesis secondary to facet arthropathy. There is severe spinal canal and bilateral lateral recess stenosis, and asymmetric mild to moderate left foraminal stenosis as described. 2. At L3-L4, there is moderate spinal canal stenosis and moderate bilateral foraminal stenosis as described. 3. At L5-S1, there is severe right and vuhg-gp-tjwcdlgb left neural foraminal stenosis as described. 4. Multiple small retroperitoneal lymph nodes are visualized, which are nonspecific. Left Hip/Pelvis X-Ray 09/16/2018 [facility]: 1. No acute osseous abnormality. 2. Mild left hip osteoarthrosis. 3. Mild enthesopathic change of the greater trochanter. Spine/Lumbosacral X-Ray 09/16/2018 [facility]: 1. No acute fracture, malalignment, or instability. [...] medicine Inpatient Follow-up 06/09/2019 Paul Hurley MD [facility] Patient: Liz Wadsworth Date of : 1950 (69 y.o.) PCP: Paul Hurley MD ASSESSMENT/PLAN: Liz Wadsworth 69 y.o. female Chronic right shoulder pain [...] 11:25 AM EST 06/06/2019 Patient Name: Liz Wadsworth Admit Date: 12120629 MR #: [id number] : 1950 Physicians: Paul Hurley MD (Family); No ref. provider found (Referring) Assessment and Plan: Impression Bilateral lower extremity cellulitis Bilateral venous insufficiency History of pulmonary edema Right prosthetic knee History of allergy to penicillin with nausea Patient on statin watch for interaction with Diflucan New candidiasis of skin New complaint of burning with Katelynn bandages Plan Diflucan 200 mg p.o. daily continue last dose will be tomorrow Lotrisone to the right and left leg skin once a day Katelynn bandage to both lower extremities for venous insufficiency swelling to be discontinued because she complained of burning with the Katelynn bandages will go back to Tubigrip I Change Ancef 2 g IV every 8h for complete resolution by Wednesday Arterial Dopplers KELTON normal Venous Dopplers negative for DVT Discontinue all dressings Katelynn bandage with Lotrisone Consider Unna compression bilaterally [...] by Dr. Marilyn MD on 06/03/2019 Liz Wadsworth is a 69 y.o. female presenting from [...] TID, Paul Hurley MD, 40 mEq at 06/08/19 1100 pravastatin (PRAVACHOL) tablet 40 mg, 40 mg, [...] Normal Mariela After 48 Hours. Final. Radiology [facility]: MRI Lumbar Spine 01/30/2019 1. At L4-L5, there is degenerative grade 1 anterolisthesis secondary to facet arthropathy. There is severe spinal canal and bilateral lateral recess stenosis, and asymmetric mild to moderate left foraminal stenosis as described. 2. At L3-L4, there is moderate spinal canal stenosis and moderate bilateral foraminal stenosis as described. 3. At L5-S1, there is severe right and pxsp-xn-xvjppmdp left neural foraminal stenosis as described. 4. Multiple small retroperitoneal lymph nodes are visualized, which are nonspecific. Left Hip/Pelvis X-Ray 09/16/2018 [facility]: 1. No acute osseous abnormality. 2. Mild left hip osteoarthrosis. 3. Mild enthesopathic change of the greater trochanter. Spine/Lumbosacral X-Ray 09/16/2018 [facility]: 1. No acute fracture, malalignment, or instability. [...] 11:12 AM EST 06/06/2019 Patient Name: Liz Wadsworth Admit Date: 12120629 MR #: [id number] : 1950 Physicians: Paul Hurley MD (Family); [...] and left leg skin once a day Katelynn bandage to both lower extremities for venous insufficiency swelling Change Ancef 2 g IV every 8h for complete resolution by Wednesday Arterial Dopplers KELTON normal Venous Dopplers negative for DVT Discontinue all dressings Katelynn bandage with Lotrisone Consider Unna compression bilaterally [...] by Dr. Marilyn MD on 06/03/2019 Liz Wadsworth is a 69 y.o. female presenting from [...] (premix), 2,000 mg, Intravenous, Q8H, [facility],PharmD, Stopped at 06/07/19 0600 clotrimazole-betamethasone (LOTRISONE) [...] Daily, Abilio Sanders MD, 40 mg at 06/06/19 2103 spironolactone (ALDACTONE) tablet 25 mg, 25 mg, [...] Normal Mariela After 48 Hours. Final. Radiology [facility]: MRI Lumbar Spine 01/30/2019 1. At L4-L5, there is degenerative grade 1 anterolisthesis secondary to facet arthropathy. There is severe spinal canal and bilateral lateral recess stenosis, and asymmetric mild to moderate left foraminal stenosis as described. 2. At L3-L4, there is moderate spinal canal stenosis and moderate bilateral foraminal stenosis as described. 3. At L5-S1, there is severe right and oeam-jf-izkmtsje left neural foraminal stenosis as described. 4. Multiple small retroperitoneal lymph nodes are visualized, which are nonspecific. Left Hip/Pelvis X-Ray 09/16/2018 [facility]: 1. No acute osseous abnormality. 2. Mild left hip osteoarthrosis. 3. Mild enthesopathic change of the greater trochanter. Spine/Lumbosacral X-Ray 09/16/2018 [facility]: 1. No acute fracture, malalignment, or instability. [...] medicine Inpatient Follow-up 06/07/2019 Paul Hurley MD [facility] Patient: Liz Wadsworth Date of : 1950 (69 y.o.) PCP: Paul Hurley MD ASSESSMENT/PLAN: Liz Wadsworth 69 y.o. female Chronic right shoulder pain [...] 10:44 AM EST 06/06/2019 Patient Name: Liz Wadsworth Admit Date: 12120629 MR #: [id number] : 1950 Physicians: Paul Hurley MD (Family); [...] by Dr. Marilyn MD on 06/03/2019 Liz Wadsworth is a 69 y.o. female presenting from [...] Abilio Sanders MD, 25 mg at 06/06/19 09 ceFAZolin (ANCEF) IVPB 2 g (premix), 2,000 mg, Intravenous, Q8H, [facility],PharmD, Stopped at 06/06/19 0500 docusate sodium (COLACE) capsule 100 mg, 100 mg, Oral, Daily, Abilio Sanders MD, 100 mg at 06/06/19 09 enoxaparin (LOVENOX) syringe 40 mg, 40 mg, [...] BID, Abilio Sanders MD, 5 mg at 06/06/19906 potassium chloride (KAYCIEL) 20 mEq/15 mL solution [...] Mariela After 48 Hours. Final. Radiology [facility]: MRI Lumbar Spine 01/30/2019 1. At L4-L5, there is degenerative grade 1 anterolisthesis secondary to facet arthropathy. There is severe spinal canal and bilateral lateral recess stenosis, and asymmetric mild to moderate left foraminal stenosis as described. 2. At L3-L4, there is moderate spinal canal stenosis and moderate bilateral foraminal stenosis as described. 3. At L5-S1, there is severe right and kkgy-ew-pjtcjage left neural foraminal stenosis as described. 4. Multiple small retroperitoneal lymph nodes are visualized, which are nonspecific. Left Hip/Pelvis X-Ray 09/16/2018 [facility]: 1. No acute osseous abnormality. 2. Mild left hip osteoarthrosis. 3. Mild enthesopathic change of the greater trochanter. Spine/Lumbosacral X-Ray 09/16/2018 [facility]: 1. No acute fracture, malalignment, or instability. [...] medicine Inpatient Follow-up 06/06/2019 Paul Hurley MD [facility] Patient: Liz Wadsworth Date of : 1950 (69 y.o.) PCP: Paul Hurley MD ASSESSMENT/PLAN: Liz Wadsworth 69 y.o. female Chronic right shoulder pain [...] 06/06/2019 CREATININE 0.84 06/06/2019 * Daiana Tobar, AI - 06/06/2019 8:14 AM EST 06/06/2019 Patient Name: Liz Wadsworth Admit Date: 12120629 MR #: [id number] : 1950 Physicians: Paul Hurley MD (Family); [...] by Dr. Marilyn MD on 06/03/2019 Liz Wadsworth is a 69 y.o. female presenting from [...] (premix), 2,000 mg, Intravenous, Q8H, [facility],PharmD, Stopped at 06/06/19 0500 docusate sodium [...] Abilio Sanders MD, 40 mg at 06/05/192036 PMH/PSH/SH/ reviewed, no change except: Review of Systems: [...] Mariela After 48 Hours. Final. Radiology [facility]: MRI Lumbar Spine 01/30/2019 1. At L4-L5, there is degenerative grade 1 anterolisthesis secondary to facet arthropathy. There is severe spinal canal and bilateral lateral recess stenosis, and asymmetric mild to moderate left foraminal stenosis as described. 2. At L3-L4, there is moderate spinal canal stenosis and moderate bilateral foraminal stenosis as described. 3. At L5-S1, there is severe right and onsa-ok-mrkgusgy left neural foraminal stenosis as described. 4. Multiple small retroperitoneal lymph nodes are visualized, which are nonspecific. Left Hip/Pelvis X-Ray 09/16/2018 [facility]: 1. No acute osseous abnormality. 2. Mild left hip osteoarthrosis. 3. Mild enthesopathic change of the greater trochanter. Spine/Lumbosacral X-Ray 09/16/2018 [facility]: 1. No acute fracture, malalignment, or instability. 2. Moderate multilevel spondylosis with 3 mm degenerative anterolisthesis of L4 on L5. CVPS: Lower Arterial Doppler 06/05/2019 ordered Lower Venous Duplex 06/05/2019 ordered 2D Echo: not on file Surgeries: Please see above for surgical history Pathology: not on file * Tyler Joseph DPM - 06/05/2019 4:56 PM EST WOUND CARE PROVIDER NOTE Patient Name: Liz Wadsworth MR #: [id number] : 1950 Date of Service: 06/05/19 ASSESSMENT [...] the patient's medical needs. Dr. Tyler Joseph (Director Of Pupil Personnel Program) is managing the patient's local wound care [...] Abilio Sanders MD 650 mg at 06/05/19 155 carvedilol (COREG) tablet 25 mg 25 mg Oral BID Abilio Sanders MD 25 mg at 06/05/19 09 ceFAZolin (ANCEF) IVPB 2 g (premix) 2,000 mg Intravenous Q8H [facility],PharmD 100 mL/hr at 06/05/19 1204 2,000 mg at 06/05/19 1204 docusate sodium (COLACE) capsule 100 mg 100 mg Oral Daily Abilio Sanders MD 100 mg at 06/05/19908 enoxaparin (LOVENOX) syringe 40 mg 40 mg Subcutaneous Q12H [facility] Paul Hurley MD 40mg at 06/05/19909 furosemide (LASIX) tablet 40 mg 40 mg Oral BID Abilio Sanders MD 40 mg at 06/05/19908 gabapentin (NEURONTIN) capsule 100 mg 100 mg Oral Nightly Abilio Sanders MD 100 mg at 06/04/192028 naloxone (NARCAN) injection 0.1 mg 0.1 mg Intravenous PRN Abilio Sanders MD And naloxone (NARCAN) injection 0.4 mg 0.4 mg Intravenous PRN Abilio Sanders MD oxybutynin (DITROPAN) tablet 5 mg 5 mg Oral BID Abilio Sanders MD 5 mg at 06/05/19908 potassium chloride (KAYCIEL) 20 mEq/15 mL solution 20 mEq 20 mEq Oral BID Abilio Sanders MD 20 mEq at 06/05/19909 pravastatin (PRAVACHOL) tablet 40 mg 40 mg [...] sites Final result Wound Aerobic Culture Order: [id number] Status: Final result Visible to patient: Yes (MyChart) Next appt: None Dx: Non-pressure chronic ulcer of unspeci... Specimen Information: Leg, Left; Swab Culture No Growth After 48 Hours Gram Stain Result No WBC Seen No Epithelial Cells Seen No Organisms Seen result Wound Aerobic Culture Order: [id number] Status: Final result Visible to patient: Yes [...] medicine Inpatient Follow-up 06/05/2019 Paul Hurley MD [facility] Patient: Liz Wadsworth Date of : 1950 (69 y.o.) PCP: Paul Hurley MD ASSESSMENT/PLAN: Liz Wadsworth 69 y.o. female * Cellulitis of lower [...] EST CONSULT NOTE 06/05/2019 Patient Name: Liz Wadsworth Admit Date: 12120629 MR #: [id number] : 1950 Physicians: Paul Hurley MD (Family); No ref. provider found (Referring) Assessment and Plan: Chief Complaint/Reason for Visit: I am seeing this patient at the request of Dr. Marilyn MD. I have reviewed the current hospital record, available laboratory, cardiology and imaging studies as wellas available out patient records. History of Present Illness: Admission H&P by Dr. Marilyn MD on 06/03/2019 Liz Wadsworth is a 69 y.o. female presenting from [...] file Gets together: Not on file Attends restorationist service: Not on file Active member of [...] mouth once At bedtime . 01/13/19 Yes HistoricalProviderMD levothyroxine (SYNTHROID, LEVOTHROID) 50 MCG tablet Take [...] Normal Mariela After 48 Hours. Final. Radiology [facility]: MRI Lumbar Spine 01/30/2019 1. At L4-L5, there is degenerative grade 1 anterolisthesis secondary to facet arthropathy. There is severe spinal canal and bilateral lateral recess stenosis, and asymmetric mild to moderate left foraminal stenosis as described. 2. At L3-L4, there is moderate spinal canal stenosis and moderate bilateral foraminal stenosis as described. 3. At L5-S1, there is severe right and bplo-vc-dnyormmr left neural foraminal stenosis as described. 4. Multiple small retroperitoneal lymph nodes are visualized, which are nonspecific. Left Hip/Pelvis X-Ray 09/16/2018 [facility]: 1. No acute osseous abnormality. 2. Mild left hip osteoarthrosis. 3. Mild enthesopathic change of the greater trochanter. Spine/Lumbosacral X-Ray 09/16/2018 [facility]: 1. No acute fracture, malalignment, or instability. 2. Moderate multilevel spondylosis with 3 mm degenerative anterolisthesis of L4 on L5. CVPS: Arterial Doppler: not on file Venous Doppler: not on file 2D Echo: not on file Surgeries: Please see above for surgical history Pathology: not on file * Tyler Joseph DPM - 06/04/2019 5:53 PM EST WOUND CARE PROVIDER NOTE Patient Name: Liz Wadsworth MR #: [id number] : 1950 Date of Service: 06/04/19 ASSESSMENT [...] Wound care orders were placed in the [facility] system on 2018. Actocoat Flex and dry sterile dressing to be applied to the R and L leg ulcer sites once a day as directed. Dr. Sanders and Dr. Hurley managing the patient's Medical needs. Dr. Tyler Joseph (Director Of Pupil Personnel Program) is managing the patient's local wound care to the patient's R and L leg ulcer sites. The patient will follow-up with Dr. Joseph at [facility] wound cliniic once the patient is discharged from [facility]. SUBJECTIVE: History of Present Illness: Patient [...] Joseph on 2018, to admitthe patient to [facility] for IV antibiotic therapy and further [...] syringe 40 mg 40 mg Subcutaneous Q12H [facility] Roshan Hurley MD 40mg at 06/04/19 1143 [...] Daily Abilio Sanders MD 40 mg at 043 OBJECTIVE: [...] Status Final result Wound Aerobic Culture Order: [id number] Status: Final result Visible to patient: No (Not Released) Next appt: None Dx: Non-pressure chronic ulcer of unspeci... Specimen Information: Leg, Right; Swab Culture Normal Mariela After 48 Hours Gram Stain Result Rare WBC No Epithelial Cells Seen No Organisms Seen Micro Culture results (LEFT leg ulcer sites) Final result Wound Aerobic Culture Order: [id number] Status: Final result Visible to patient: No [...] file Gets together: Not on file Attends restorationist service: Not on file Active member of club or organization: Not on file Attends meetings of clubs or organizations: Not on file Relationship status: Not on file Other Topics Concern Not on file Social History Narrative Not on file History reviewed. No pertinent family history. * Paul Hurley MD - 06/04/2019 9:38 AM EST Internal medicine Inpatient Follow-up 06/04/2019 Paul Hurley MD [facility] Patient: Liz Wadsworth Date of : 1950 (69 y.o.) PCP: Paul Hurley MD ASSESSMENT/PLAN: Liz Wadsworth 69 y.o. female * Cellulitis of lower [...] 10:45 AM EST 06/06/2019 Patient Name: Liz Wadsworth Admit Date: 12120629 MR #: [id number] : 1950 Physicians: Paul Hurley MD (Family); No ref. provider found (Referring) Assessment and Plan: Impression New venous dermatitis Bilateral lower extremity cellulitis Bilateral venous insufficiency History of pulmonary edema Right prosthetic knee History of allergy to penicillin with nausea Patient on statin watch for interaction with Diflucan candidiasis of skin complaint of burning with Katelynn bandages Plan Keflex 500 mg p.o. twice [...] and left leg skin once a day Katelynn bandage to both lower extremities for venous insufficiency swelling to be discontinued because she complained of burning with the Katelynn bandages will go back to Tubigrip I Change Ancef 2 g IV every 8h for complete resolution by Wednesday Arterial Dopplers [place] normal Venous Dopplers negative for DVT Discontinue all dressings Katelynn bandage with Lotrisone Consider Unna compression bilaterally in the wound clinic on follow-up if needed Right and left leg cultures normal mariela Blood cultures no growth We will plan discharge tomorrow if possible on no p.o. antibiotics as the lower extremities are appearing much better She will follow-up with Dr. Joseph in the wound clinic on this Wednesday afternoon Chief Complaint/Reason for Visit: I am seeing this patient at the request of Dr. Marilyn MD. I have reviewed the current hospital record, available laboratory, cardiology and imaging studies as well as available out patient records. History of Present Illness: Admission H&P by Dr. Marilyn MD on 06/03/2019 Liz Wadsworth is a 69 y.o. female presenting from [...] Abilio Sanders MD, 25 mg at 06/09/19 08 ceFAZolin (ANCEF) IVPB 2 g (premix), 2,000 [...] Marilyn Pantoja MD, 200 mg at 06/09/19 0817 furosemide (LASIX) tablet 40 mg, 40 mg, Oral, Daily, Paul Hurley MD, 40 mg at 06/09/19 0817 gabapentin (NEURONTIN) capsule 100 mg, 100 mg, Oral, Nightly, Abilio Sanders MD, 100 mg at 06/08/19 2224 naloxone (NARCAN) injection 0.1 mg, 0.1 mg, Intravenous, PRN AND Notify physician, , , Until Discontinued AND naloxone (NARCAN) injection 0.4 mg, 0.4 mg, Intravenous, PRN, Abilio Sanders MD oxybutynin (DITROPAN) tablet 5 mg, 5 mg, Oral, BID, Abilio Sanders MD, 5 mg at 06/09/19 0817 potassium chloride (KAYCIEL) 20 mEq/15 mL solution 40 mEq, 40 mEq, Oral, TID, Paul Hurley MD, 40 mEq at 06/09/19 0817 pravastatin (PRAVACHOL) tablet 40 mg, 40 mg, Oral, Daily, Abilio Sanders MD, 40 mg at 06/08/19 2225 spironolactone (ALDACTONE) tablet 25 mg, 25 mg, Oral, Daily, Paul Hurley MD, 25 mg at 06/09/19 0817 PMH/PSH/SH/ reviewed, no change except: She was [...] Normal Mariela After 48 Hours. Final. Radiology [facility]: MRI Lumbar Spine 01/30/2019 1. At L4-L5, there is degenerative grade 1 anterolisthesis secondary to facet arthropathy. There is severe spinal canal and bilateral lateral recess stenosis, and asymmetric mild to moderate left foraminal stenosis as described. 2. At L3-L4, there is moderate spinal canal stenosis and moderate bilateral foraminal stenosis as described. 3. At L5-S1, there is severe right and blwy-sr-mwnfbypi left neural foraminal stenosis as described. 4. Multiple small retroperitoneal lymph nodes are visualized, which are nonspecific. Left Hip/Pelvis X-Ray 09/16/2018 [facility]: 1. No acute osseous abnormality. 2. Mild left hip osteoarthrosis. 3. Mild enthesopathic change of the greater trochanter. Spine/Lumbosacral X-Ray 09/16/2018 [facility]: 1. No acute fracture, malalignment, or [...] 7:25 AM EST 06/06/2019 Patient Name: Liz Wadsworth Admit Date: 12120629 MR #: [id number] : 1950 Physicians: Paul Hurley MD (Family); No ref. provider found (Referring) Assessment and Plan: Impression New venous dermatitis Bilateral lower extremity cellulitis Bilateral venous insufficiency History of pulmonary edema Right prosthetic knee History of allergy to penicillin with nausea Patient on statin watch for interaction with Diflucan candidiasis of skin complaint of burning with Katelynn bandages Plan Discontinue Lotrisone Discontinue all local dressings no P.o. antibiotic Triad cream to right and left leg here today use as needed for itching at home Tubigrip I during the daytime Diabetic socks from drug [place] Discharge from the wound clinic Follow-up with [...] and left leg skin once a day Katelynn bandage to both lower extremities for venous insufficiency swelling to be discontinued because she complained of burning with the Katelynn bandages will go back to Tubigrip I Change Ancef 2 g IV every 8h for complete resolution by Wednesday Arterial Dopplers KELTON normal Venous Dopplers negative for DVT Discontinue all dressings Katelynn bandage with Lotrisone Consider Unna compression bilaterally [...] by Dr. Marilyn MD on 06/03/2019 Liz Wadsworth is a 69 y.o. female presenting from [...] None 06/30/2019 7:17 AM Adrianna-wound Assessment Temperature WNL;[place] 06/30/2019 7:17 AM Cleansed Soap and water [...] None 06/30/2019 7:17 AM Adrianna-wound Assessment Temperature WNL;[place] 06/30/2019 7:17 AM Cleansed Soap and water [...] Mariela After 48 Hours. Final. Radiology [facility]: MRI Lumbar Spine 01/30/2019 1. At L4-L5, there is degenerative grade 1 anterolisthesis secondary to facet arthropathy. There is severe spinal canal and bilateral lateral recess stenosis, and asymmetric mild to moderate left foraminal stenosis as described. 2. At L3-L4, there is moderate spinal canal stenosis and moderate bilateral foraminal stenosis as described. 3. At L5-S1, there is severe right and mhsw-vr-wnmcmcmh left neural foraminal stenosis as described. 4. Multiple small retroperitoneal lymph nodes are visualized, which are nonspecific. Left Hip/Pelvis X-Ray 09/16/2018 [facility]: 1. No acute osseous abnormality. 2. Mild left hip osteoarthrosis. 3. Mild enthesopathic change of the greater trochanter. Spine/Lumbosacral X-Ray 09/16/2018 [facility]: 1. No acute fracture, malalignment, or instability. [...] 10:14 PM EDT Subjective Patient ID: Liz Wadsworth is a 70 y.o. female. Patient 70-year-old [...] Date Arthritis Asthma CHF (congestive heart failure) ([facility]) COPD (chronic obstructive pulmonary disease) ([facility]) Disease of thyroid gland GERD (gastroesophageal reflux disease) HTN (hypertension), benign 02/16/2020 Type 2 diabetes mellitus without complication, without long-term current use of insulin ([facility]) 02/16/2020 Past Surgical History: Procedure Laterality Date [...] ABD TB/Hip ADD 1x10x5 ADD; YTB w/ [id number] DL/SL Neuromuscular Re-education (Nm): Standing hip 3-way [...] seated as tolerated. Therapist Signature: Camila Olson, STEPHANE Time in: 1045 Time out: 1130 Total Visit Time: 45 Min Total Treatment Time: 45 minutes Timed Code Treatment Minutes: 45 minutes Overall PT Visit Number: 4 Visit(s) PT G-Code Visit Number: 4 G-Code Visit(s) x3 [x] Therapeutic Exercise 65986 [] Neuromuscular Reeducation 59669 [] Manual Therapy 59699 [] Mechanical Traction 74517 [] Gait Training 64823 [] Iontophoresis 84078 [] Ultrasound 65242 [] Electric Stimulation 97031 documented in this encounter* Paul Hurley MD - 05/25/2020 7:49 PM EST Subjective Patient ID: Liz Wadsworth is a 70 y.o. female. Patient is 70-year-old female with history of morbid obesity [facility] of [facility]. [...] ABD TB/Hip ADD 1x20x5 ADD; RTB w/ PGA3x85 DL/SL Neuromuscular Re-education (Nm): abdominal bracing in standing 10x10, increased difficulty. Standing hip 3-way tap/step lateral [...] for increased core activation. Therapist Signature: Camila Olson PT Time in: 1045 Time out: 1130 Total Visit Time: 45 Min Total Treatment Time: 45 minutes + 10' CP Timed Code Treatment Minutes: 45 minutes Overall PT Visit Number: 7 Visit(s) PT G-Code Visit Number: 7 G-Code Visit(s) x3 [x] Therapeutic Exercise 17254 [] Neuromuscular Reeducation 70242 [] Manual Therapy 53141 [] Mechanical Traction 25404 [] Gait Training 58311 [] Iontophoresis 41701 [] Ultrasound 24558 x1 [x] Electric Stimulation 39187 documented in this encounter* Jing Gutierrez RN [...] 8:00 AM EST 06/06/2019 Patient Name: Liz Wadsworth Admit Date: 12120629 MR #: [id number] : 1950 Physicians: Paul Hurley MD (Family); No ref. provider found (Referring) Assessment and Plan: Impression New venous dermatitis Bilateral lower extremity cellulitis Bilateral venous insufficiency History of pulmonary edema Right prosthetic knee History of allergy to penicillin with nausea Patient on statin watch for interaction with Diflucan candidiasis of skin complaint of burning with Katelynn bandages Plan Keflex 500 mg p.o. twice [...] and left leg skin once a day Katelynn bandage to both lower extremities for venous insufficiency swelling to be discontinued because she complained of burning with the Katelynn bandages will go back to Tubigrip I Change Ancef 2 g IV every 8h for complete resolution by Wednesday Arterial Dopplers KELTON normal Venous Dopplers negative for DVT Discontinue all dressings Katelynn bandage with Lotrisone Consider Unna compression bilaterally [...] by Dr. Marilyn MD on 06/03/2019 Liz Wadsworth is a 69 y.o. female presenting from [...] Normal Mariela After 48 Hours. Final. Radiology [facility]: MRI Lumbar Spine 01/30/2019 1. At L4-L5, there is degenerative grade 1 anterolisthesis secondary to facet arthropathy. There is severe spinal canal and bilateral lateral recess stenosis, and asymmetric mild to moderate left foraminal stenosis as described. 2. At L3-L4, there is moderate spinal canal stenosis and moderate bilateral foraminal stenosis as described. 3. At L5-S1, there is severe right and ihbv-qv-dkwqswpc left neural foraminal stenosis as described. 4. Multiple small retroperitoneal lymph nodes are visualized, which are nonspecific. Left Hip/Pelvis X-Ray 09/16/2018 [facility]: 1. No acute osseous abnormality. 2. Mild left hip osteoarthrosis. 3. Mild enthesopathic change of the greater trochanter. Spine/Lumbosacral X-Ray 09/16/2018 [facility]: 1. No acute fracture, malalignment, or instability. [...] Unna boots documented in this encounter* Marjorie Narayanan DO - 02/16/2019 10:00 AM EDT Lumbar MRI [...] Just mild right L5-S1 foraminal stenosis noted. (DOC:[id number]) HISTORY OF PRESENT ILLNESS: Continued low back [...] Follow up as needed at this point. (DOC:[id number]) PATIENT IDENTIFICATION: 68 y.o. female with a history of CHF, diabetes, diabetic neuropathy, obesity, right total knee arthroplasty, lower extremity cellulitis, who was referred by Dr. Gonzalez in [facility] for low back and left lower extremity discomfort that started and early to mid August 2018 with no particular inciting event. Rx to date: More than 6 wks of physical therapy, 24 visits actually, that ended December 09, 2018. Chief Complaint Patient presents with Back Pain Vital Signs: Height 1.676 m (5' 6), weight (!) 141.5 kg (312 lb). ROS: Negative for fever/chills Negative for numbness/tingling in extremities [place]: Pain location: Low back Pain ratin/10 Pain [...] At L5-S1, there is severe right and wsmr-qp-ymtvstzo left neural foraminal stenosis as described. 4. [...] atheromatous plaque. LABS: Outside blood work from [facility] 12/30/17: AST 17, ALT 24, creatinine 0.86, [...] penicillins. The above report was entered using webtide voice recognition medical dictation software. Although I have reviewed this report for accuracy, certain words and phrases may not be entered as intended. documented in this encounter* Paul Hurley MD - 09/09/2020 11:10 AM EDT Subjective Patient ID: Liz Wadsworth is a 70 y.o. female. Patient is [...] Date Arthritis Asthma CHF (congestive heart failure) ([facility]) COPD (chronic obstructive pulmonary disease) ([facility]) Disease of thyroid gland GERD (gastroesophageal reflux disease) HTN (hypertension), benign 02/16/2020 Type 2 diabetes mellitus without complication, without long-term current use of insulin ([facility]) 02/16/2020 Past Surgical History: Procedure Laterality Date [...] polyneuropathy, without long-term current use of insulin ([facility]) Relevant Medications DULoxetine (CYMBALTA) 60 MG capsule [...] Somewhat difficult documented in this encounter* Marjorie Narayanan, - 01/13/2019 8:00 AM EDT [place]: LBP provoked by standing. The patient's family/friend [...] who was referred by Dr. Gonzalez in [facility] for low back and left lower extremity discomfort that started and early to mid August 2018 with no particular inciting event. Chief Complaint Patient presents with Back Pain PHYSICAL EXAM: Height 1.676 m (5' 6), weight (!) 144.2 kg (318 lb). EOMI General: no acute distress Neuro: Lower extremity strength: WFL - able to heel/toe walk Lower extremity sensation: diminished R lat thigh and bilaterally distally to the knees (hx of neuropathy) ROS: Negative for fever/chills Positive for numbness/tingling in extremities [place]: Pain location: Low back Pain ratin/10 Pain [...] atheromatous plaque. LABS: Outside blood work from [facility] 12/30/17: AST 17, ALT 24, creatinine 0.86, [...] penicillins. The above report was entered using webtide voice recognition medical dictation software. Although I have reviewed this report for accuracy, certain words and phrases may not be entered as intended. documented in this encounter* Zeferino Alicia MD - 10/03/2020 9:43 AM EDT Liz Wadwsorth 70 y.o. 1950 female Reason for Consult: [...] long-term current use of insulin (HCC) 02/16/2020 Surgical History & Procedures: Past Surgical [...] file Gets together: Not on file Attends restorationist service: Not on file Active member of [...] colonoscopy on October 30 at noon at [facility]. Zeferino Alicia MD documented in this encounter Assessments Diagnosis [...] obstructive pulmonary disease, unspecified COPD type (HCC) HTN (hypertension), benign Essential hypertension, benign Hypercholesteremia Pure hypercholesterolemia Type 2 diabetes mellitus without complication, without long-term current use of insulin ([facility]) Morbid obesity ([facility]) Morbid obesity Encounter for screening colonoscopy Diagnosis Well adult health check Unspecified general medical examination Diagnosis HTN (hypertension), benign- Primary Essential hypertension, benign Hypercholesteremia Pure hypercholesterolemia Chronic diastolic congestive heart failure ([facility]) Age-related osteoporosis without current pathological fracture Type 2 diabetes mellitus with diabetic polyneuropathy, without long-term current use of insulin ([facility]) Well adult health check Unspecified general medical examination Encounter for screening colonoscopy Flu vaccine need Class 3 severe obesity due to excess calories with serious comorbidity and body mass index (BMI) of 50.0 to 59.9 in adult ([facility]) Diagnosis Lumbar facet joint pain- Primary Other symptoms referable to back Osteoarthritis of facet joint of lumbar spine Central spinal stenosis Spinal stenosis, unspecified region other than cervical Diagnosis Essential (primary) hypertension Unspecified essential hypertension Chronic idiopathic constipation Unspecified constipation Type 2 diabetes mellitus with diabetic polyneuropathy, without long-term current use of insulin ([facility]) HTN (hypertension), benign Essential hypertension, benign Chronic obstructive pulmonary disease, unspecified COPD type ([facility]) Chronic diastolic congestive heart failure ([facility]) Class 3 severe obesity due to excess calories with serious comorbidity and body mass index (BMI) of 50.0 to 59.9 in adult ([facility]) [facility] adult health check Unspecified general medical examination [...] unspecified Diagnosis Encounter for screening colonoscopy for cvt-ndtm-fokr patient- Primary Encounter for screening colonoscopy for nlw-lsop-dbvc patient Diagnosis Encounter for screening colonoscopy Encounter for screening colonoscopy for ktv-sdtu-wgax patient- Primary Encounter for screening colonoscopy for zny-kwgj-ywmo patient Diagnosis Encounter for screening colonoscopy for dsx-zxdk-aawl patient- Primary Sars-associated coronavirus as the cause of diseases classified elsewhere- Primary Encounter for screening colonoscopy for aeh-szlx-gyxz patient Discharge Instructions * Instructions* Marti Robison [...] your doctor if you can take an wdqq-zhy-awvfqmo medicine. To prevent cellulitis in the future [...] Log into your personal health record on [email or web address] and enter X309 in the Education box to learn more about Cellulitis: Care Instructions. Current as of: September 19, 2018 Content Version: 12.3 8355-7883 [employer]. Care instructions adapted under license by your healthcare professional. If you have questions about a medical condition or this instruction, always ask your healthcare professional. [employer] disclaims any warranty or liability for your use of this information. documented in this encounter* Instructions* Durga Irwin DO - 01/28/2020 May take Tylenol every 6 hours as needed for pain. Take antibiotics as directed for cellulitis. Keep feet elevated as much as possible. Follow-up with your family doctor in 2 to 3 days for recheck. Return if worse. * Attachments The following attachments cannot be sent through Care Everywhere. * Arthritis ([place]) * Knee Pain or Injury ([place]) * Cellulitis ([place]ese) documented in this encounter Instructions * Patient Instructions* Leidy Dewitt RN - 06/30/2019 7:32 AM EST Triad cream as needed Tubigrip I during the daytime Discharge from wound clinic follow-up with PMD no p.o. antibiotic documented in this encounter* Patient Instructions* Jing Gutierrez RN - 06/23/2019 8:55 AM EST Bilateral Unna [...] You Can Do to Prevent Falls (from [facility]). 2. Go through the brochure, Check for Safety: A Home Fall Prevention Checklist for Older Adults (from [facility]). We recommend having a Home Safety Evaluation [...] so they can refer you to a service engine repairer. Falls At Home Each year, thousands of [...] blankets, or other objects on the floor? A.security officer supervisor things that are on the floor. Always keep objects off the floor. Q: Do you have to walk over or around wires or cords (like lamp, telephone, or extension cords)? A. Coil or tape cords and wires next to the wall so you can t trip over them. If needed, have an service electrician put in another outlet. STAIRS AND STEPS: Look at the stairs you use both inside and outside your home. Q: Are there papers, shoes, books, or other objects on the stairs? A. security officer supervisor things on the stairs. Always keep objects off stairs. Q: Are some steps broken or uneven? A. Fix loose or uneven steps. Q: Are you missing a light over the stairway? A. Have an service electrician put in an overhead light at the top and bottom of the stairs. Q: Do you have only one light switch for your stairs (only at the top or at the bottom of the stairs)? A. Have an service electrician put in a light switch at the [...] at all the medicines you take, even [id number] medicines.Some medicines can make you sleepy or [...] lightweight curtains or shades to reduce glare. [place] a contrasting color on the top edge of all steps so you can see the stairs better. For example, use a light color paint on dark wood. To access this brochure online, please visit the [facility] website at http://www.cdc.gov/steadi/pdf/check_for_safety_brochure-[email or web address].pdf Chair Rise Exercise What [...] vision, and medications. Classes are offered at [facility]. To find out specifics about a class, please call [phone]. Mode chi: Moving for Better Balance involves low impact exercise. The 12-week class is offered for three hours per week and is led by a trained power equipment mechanics instructor. It is intended for people aged 60 and older. Participants learn and perform a program of eight forms that progress from easy to more difficult. The program can accommodate persons with various physical conditions. Health Benefits of Mode Chi: Moving for Better Balance: Improved social and mental well-being, Improved balance and physical functioning, Improved confidence in conducting daily activities, Reduced risk of falling and sustaining associated injuries, and Maintained independence and improved quality of life. To find a Mode Chi program in your area or additional resources about fall prevention please contact: [facility] Violence and Injury Prevention Program at [phone] or [email or web address] A Matter of Balance: Managing Concerns about Falls is an evidence based program designed to reduce the fear of falling and increase activity levels of older adults. A trained plate hanger leads 8 two-hour sessions for small groups [...] at home. Classes are offered in all [address] [place] [address] in [place]. For more information about specific classes near you, please visit http://aging.[place].gov/steadyu/resources/matterofbalance.aspx. documented in this encounter Chief Complaint and Reason for Visit Chief Complaint 6 wk FU PALP 3 M FU 3 M FU SOB Shortness of breath SOB Shortness of breath Reason for Visit Dyslipidemia Palpitations Essential hypertension SOB (shortness of breath) Essential hypertension GERD (gastroesophageal reflux disease) Lymphedema Type 2 diabetes mellitus Morbid obesity DOLORES (obstructive sleep apnea) SOB (shortness of breath) Chief Complaint PALP 3 M FU 3 M FU SOB Shortness of breath SOB Shortness of breath 4-6 WEEK FU Reason for Visit Essential hypertensi on GERD (gastroesophageal reflux disease) Lymphedema Type 2 diabetes mellitus Morbid obesity DOLORES (obstructive sleep apnea) SOB (shortness of breath) Morbid obesity with BMI of 45.0-49.9, adult Chronic respiratory failure with hypoxia COPD (chronic obstructive pulmonary disease) Chief Complaint 3 M FU 3 M FU SOB Shortness of breath SOB Shortness of breath 4-6 WEEK FU 3 M FU Reason for Visit Essential hypertensi on GERD (gastroesophageal reflux disease) Lymphedema Type 2 diabetes mellitus Morbid obesity DOLORES (obstructive sleep apnea) SOB (shortness of breath) Morbid obesity with BMI of 45.0-49.9, adult Chronic respiratory failure with hypoxia COPD (chronic obstructive pulmonary disease) Sore throat Dermatitis Essential hypertension Type 2 diabetes mellitus Chief Complaint 4-6 WEEK FU 3 M FU b/l lower leg edema 3 M FU Reason for Visit Morbid obesity with BMI of 45.0-49.9, adult Chronic respiratory failure with hypoxia COPD (chronic obstructive pulmonary disease) Sore throat Dermatitis Essential hypertension Type 2 diabetes mellitus Health care maintenance Chronic respiratory failure with hypoxia COPD (chronic obstructive pulmonary disease) Essential hypertension GERD (gastroesophageal reflux disease) Type 2 diabetes mellitus Ulcer of right lower extremity Chief Complaint 3 M FU b/l lower leg edema 3 M FU wound wound SCREENING/OSTEO wound wound Reason for Visit Sore throat Dermatitis Essential hypertension Type 2 diabetes mellitus Health care maintenance Chronic respiratory failure with hypoxia COPD (chronic obstructive pulmonary disease) Essential hypertension GERD (gastroesophageal reflux disease) Type 2 diabetes mellitus Ulcer of right lower extremity Edema of both lower extremities PVD (peripheral vascular disease) Venous insufficiency Essential hypertension Lymphedema Type 2 diabetes mellitus Edema of both lower extremities PVD (peripheral vascular disease) Venous insufficiency Essential hypertension Lymphedema Type 2 diabetes mellitus Chief Complaint 3 M FU wound wound SCREENING/OSTEO wound wound wound wound wound 6 M FU wound bilateral dvt's as of today Peripheral vascular disease NEW -DVT G47.33 I82.403 Amb Documentation 3 M FU 1MO LABS REVIEW CXR/ECHO lab Reason for Visit Chronic respiratory failure with hypoxia COPD (chronic obstructive pulmonary disease) Essential hypertension GERD (gastroesophageal reflux disease) Type 2 diabetes mellitus Edema of both lower extremities Essential hypertension Lymphedema PVD (peripheral vascular disease) Type 2 diabetes mellitus Venous insufficiency Edema of both lower extremities Essential hypertension Lymphedema PVD (peripheral vascular disease) Type 2 diabetes mellitus Venous insufficiency Mixed obstructive and restrictive ventilatory defect DOLORES (obstructive sleep apnea) Chronic hypoxemic respiratory failure Edema of both lower extremities Essential hypertension Lymphedema PVD (peripheral vascular disease) Type 2 diabetes mellitus Venous insufficiency Edema of both lower extremities Morbid obesity with BMI of 45.0-49.9, adult DVT, bilateral lower limbs PVD (peripheral vascular disease) Venous insufficiency DVT, bilateral lower limbs Abdominal pain Difficulty swallowing DVT, bilateral lower limbs Essential hypertension Type 2 diabetes mellitus Venous insufficiency DVT, bilateral lower limbs Pulmonary hypertension Chief Complaint wound wound SCREENING/OSTEO wound wound wound wound wound 6 M FU wound bilateral dvt's as of today Peripheral vascular disease NEW -DVT G47.33 I82.403 Amb Documentation 3 M FU 1MO LABS REVIEW CXR/ECHO lab ABDOMINAL PAIN Reason for Visit Edema of both lower extremities Essential hypertension Lymphedema PVD (peripheral vascular disease) Type 2 diabetes mellitus Venous insufficiency Edema of both lower extremities Essential hypertension Lymphedema PVD (peripheral vascular disease) Type 2 diabetes mellitus Venous insufficiency Mixed obstructive and restrictive ventilatory defect DOLORES (obstructive sleep apnea) Chronic hypoxemic respiratory failure Edema of both lower extremities Essential hypertension Lymphedema PVD (peripheral vascular disease) Type 2 diabetes mellitus Venous insufficiency Edema of both lower extremities Morbid obesity with BMI of 45.0-49.9, adult DVT, bilateral lower limbs PVD (peripheral vascular disease) Venous insufficiency DVT, bilateral lower limbs Abdominal pain Difficulty swallowing DVT, bilateral lower limbs Essential hypertension Type 2 diabetes mellitus Venous insufficiency DVT, bilateral lower limbs Pulmonary hypertension Difficulty swallowing Chief Complaint Peripheral vascular disease NEW -DVT G47.33 I82.403 Amb Documentation 3 M FU 1MO LABS REVIEW CXR/ECHO ABDOMINAL PAIN Follow up 1 M F/U SCOPE lab 2 MO - LABS h pylori breath test H PYLORI 1 Y FU 1 M FU Reason for Visit Venous insufficiency DVT, bilateral lower limbs Abdominal pain Difficulty swallowing DVT, bilateral lower limbs Essential hypertension Type 2 diabetes mellitus Venous insufficiency DVT, bilateral lower limbs Pulmonary hypertension Difficulty swallowing Essential hypertension Gastric ulcer Gastric ulcer DVT, bilateral lower limbs Pulmonary hypertension ATKINS (dyspnea on exertion) Essential hypertension Hyperlipidemia Palpitations Edema of both lower extremities Essential hypertension Urinary incontinence with continuous leakage Venous insufficiency Chief Complaint G47.33 I82.403 Amb Documentation 3 M FU 1MO LABS REVIEW CXR/ECHO ABDOMINAL PAIN Follow up 1 M F/U SCOPE lab 2 MO - LABS h pylori breath test H PYLORI 1 Y FU 1 M FU wound wound Reason for Visit Abdominal pain Difficulty swallowing DVT, bilateral lower limbs Essential hypertension Type 2 diabetes mellitus Venous insufficiency DVT, bilateral lower limbs Pulmonary hypertension Difficulty swallowing Essential hypertension Gastric ulcer Gastric ulcer DVT, bilateral lower limbs Pulmonary hypertension ATKINS (dyspnea on exertion) Essential hypertension Hyperlipidemia Palpitations Edema of both lower extremities Essential hypertension Urinary incontinence with continuous leakage Venous insufficiency Wound of left lower extremity Chief Complaint ABDOMINAL PAIN Follow up 1 M F/U SCOPE lab 2 MO - LABS h pylori breath test H PYLORI 1 Y FU 1 M FU wound wound wound wound wound wound wound Reason for Visit Difficulty swallowin g Essential hypertension Gastric ulcer Gastric ulcer DVT, bilateral lower limbs Pulmonary hypertension ATKINS (dyspnea on exertion) Essential hypertension Hyperlipidemia Palpitations Edema of both lower extremities Essential hypertension Urinary incontinence with continuous leakage Venous insufficiency Wound of left lower extremity Non-pressure chronic ulcer left lower leg, limited to breakdown skin DVT, bilateral lower limbs Edema of both lower extremities Lymphedema Chief Complaint Follow up 1 M F/U SCOPE 2 MO - LABS h pylori breath test H PYLORI 1 Y FU 1 M FU wound wound wound wound wound wound wound 2MO LABS lab wound 6 M FU wound wound Reason for Visit Essential hypertensi on Gastric ulcer Gastric ulcer DVT, bilateral lower limbs Pulmonary hypertension ATKINS (dyspnea on exertion) Essential hypertension Hyperlipidemia Palpitations Edema of both lower extremities Essential hypertension Urinary incontinence with continuous leakage Venous insufficiency Wound of left lower extremity Non-pressure chronic ulcer left lower leg, limited to breakdown skin DVT, bilateral lower limbs Edema of both lower extremities Lymphedema DVT, bilateral lower limbs Pulmonary hypertension Mixed obstructive and restrictive ventilatory defect Morbid obesity with BMI of 45.0-49.9, adult DOLORES (obstructive sleep apnea) Pulmonary hypertension Non-pressure chronic ulcer left lower leg, limited to breakdown skin DVT, bilateral lower limbs Edema of both lower extremities Lymphedema Chief Complaint 3 M FU 3MO LABS lab 3 M FU Reason for Visit Shingles Hyperlipidemia Hypothyroidism Type 2 diabetes mellitus Venous insufficiency DVT, bilateral lower limbs Edema of both lower extremities Essential hypertension Hypothyroidism Left knee pain Type 2 diabetes mellitus Chief Complaint 3MO LABS 3 M FU 3MO LABS lab EORDERS UI/PT HAS RX 6-9 MO F/U EORDER 6 M FU Reason for Visit DVT, bilateral lower limbs Edema of both lower extremities Essential hypertension Hypothyroidism Left knee pain Type 2 diabetes mellitus DVT, bilateral lower limbs ATKINS (dyspnea on exertion) Essential hypertension Hyperlipidemia Palpitations Mixed obstructive and restrictive ventilatory defect Chronic hypoxemic respiratory failure DOLORES (obstructive sleep apnea) Chief Complaint 3 M FU 3MO LABS lab EORDERS 6-9 MO F/U EORDER 6 M FU UI/PT HAS RX EORDER Reason for Visit Edema of both lower extremities Essential hypertension Hypothyroidism Left knee pain Type 2 diabetes mellitus DVT, bilateral lower limbs ATKINS (dyspnea on exertion) Essential hypertension Hyperlipidemia Palpitations Mixed obstructive and restrictive ventilatory defect Chronic hypoxemic respiratory failure DOLORES (obstructive sleep apnea) Chief Complaint 3MO LABS lab EORDERS 6-9 MO F/U EORDER 6 M FU UI/PT HAS RX EORDER 8WKS LABS PRIOR SORES ON LEGS AND SOB Reason for Visit DVT, bilateral lower limbs ATKINS (dyspnea on exertion) Essential hypertension Hyperlipidemia Palpitations Mixed obstructive and restrictive ventilatory defect Chronic hypoxemic respiratory failure DOLORES (obstructive sleep apnea) DVT, bilateral lower limbs Chief Complaint UI/PT HAS RX EORDER 8WKS LABS PRIOR SORES ON LEGS AND SOB wound Reason for Visit DVT, bilateral lower limbs Debility Osteoarthritis Venous ulcer of right lower extremity without varicose veins Chronic respiratory failure with hypoxia COPD (chronic obstructive pulmonary disease) Edema of both lower extremities Hypothyroidism Lymphedema Morbid obesity with BMI of 45.0-49.9, adult DOLORES (obstructive sleep apnea) Pulmonary hypertension Type 2 diabetes mellitus Venous insufficiency Chief Complaint EORDER 8WKS LABS PRIOR SORES ON LEGS AND SOB wound CONSULT-LYMPHEDEMA wound 3 MO - LABS ELEVATED D-DIMER,SWELLING Reason for Visit DVT, bilateral lower limbs Debility Osteoarthritis Chronic respiratory failure with hypoxia COPD (chronic obstructive pulmonary disease) Edema of both lower extremities Hypothyroidism Lymphedema Morbid obesity with BMI of 45.0-49.9, adult DOLORES (obstructive sleep apnea) Pulmonary hypertension Type 2 diabetes mellitus Venous insufficiency Venous ulcer of right lower extremity without varicose veins Venous ulcer of right lower extremity without varicose veins Debility Osteoarthritis Chronic hypoxemic respiratory failure COPD (chronic obstructive pulmonary disease) Edema of both lower extremities Hypothyroidism Lymphedema Morbid obesity with BMI of 45.0-49.9, adult DOLORES (obstructive sleep apnea) Pulmonary hypertension Type 2 diabetes mellitus Venous insufficiency Venous ulcer of right lower extremity without varicose veins Abnormal laboratory test DVT, bilateral lower limbs Chief Complaint 8WKS LABS PRIOR SORES ON LEGS AND SOB wound CONSULT-LYMPHEDEMA wound 3 MO - LABS ELEVATED D-DIMER,SWELLING CP EXPOSURE Reason for Visit DVT, bilateral lower limbs Debility Osteoarthritis Chronic respiratory failure with hypoxia COPD (chronic obstructive pulmonary disease) Edema of both lower extremities Hypothyroidism Lymphedema Morbid obesity with BMI of 45.0-49.9, adult DOLORES (obstructive sleep apnea) Pulmonary hypertension Type 2 diabetes mellitus Venous insufficiency Venous ulcer of right lower extremity without varicose veins Venous ulcer of right lower extremity without varicose veins Debility Osteoarthritis Chronic hypoxemic respiratory failure COPD (chronic obstructive pulmonary disease) Edema of both lower extremities Hypothyroidism Lymphedema Morbid obesity with BMI of 45.0-49.9, adult DOLORES (obstructive sleep apnea) Pulmonary hypertension Type 2 diabetes mellitus Venous insufficiency Venous ulcer of right lower extremity without varicose veins Abnormal laboratory test DVT, bilateral lower limbs Chief Complaint SORES ON LEGS AND SO B wound CONSULT-LYMPHEDEMA wound 3 MO - LABS ELEVATED D-DIMER,SWELLING CP EXPOSURE 1WK NO LABS Reason for Visit Debility Osteoarthritis Chronic respiratory failure with hypoxia COPD (chronic obstructive pulmonary disease) Edema of both lower extremities Hypothyroidism Lymphedema Morbid obesity with BMI of 45.0-49.9, adult DOLORES (obstructive sleep apnea) Pulmonary hypertension Type 2 diabetes mellitus Venous insufficiency Venous ulcer of right lower extremity without varicose veins Venous ulcer of right lower extremity without varicose veins Debility Osteoarthritis Chronic hypoxemic respiratory failure COPD (chronic obstructive pulmonary disease) Edema of both lower extremities Hypothyroidism Lymphedema Morbid obesity with BMI of 45.0-49.9, adult DOLORES (obstructive sleep apnea) Pulmonary hypertension Type 2 diabetes mellitus Venous insufficiency Venous ulcer of right lower extremity without varicose veins Abnormal laboratory test DVT, bilateral lower limbs Abnormal laboratory test DVT, bilateral lower limbs Chief Complaint Admit Date wound May 12, 2024 10:45am wound June 01, 2024 2:50pm 3 M FU June 08, 2024 5:17pm wound June 16, 2024 10:30am DOLORES June 27, 2024 1: 00pm wound July 21, 2024 1 0:00am LEFT ABLATION July 27, 2024 8 :33am LEFT ABLATION July 27, 2024 1 0:42am POST OP July 31, 2024 10:55am Post Chemical Ablation 3-4 WK FU 2024 9:52am wound August 18, 2024 9:15am Chest and left arm pain, see NN. Oniel Ma [facility] 2024 11:41am E ORDER August 28, 2024 1:0 7pm wound September 01, 2024 9:4 5am Reason for Visit Admit Date 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, limited to breakdown skin May 12, 2024 10:45am Venous stasis 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 May 12, 2024 10:45am Chronic hypoxemic respiratory failure No vember 2023 10:45am COPD (chronic obstructive pulmonary dise ase) May 12, 2024 10:45am Debility May 12, 2024 10:45am Edema of both lower extremities May 12, 2024 10:45am Essential hypertension May 12 10:45am Hypothyroidism May 12, 2024 10:45am Lymphedema May 12, 2024 10:45am Morbid obesity with BMI of 45.0-49.9, ad ult May 12, 2024 10:45am DOLORES (obstructive sleep apnea) April 222023 10:45am Osteoarthritis May 12, 2024 10:45am Pulmonary hypertension May 12 10:45am Type 2 diabetes mellitus May 12, 2024 10:45am Venous insufficiency May 12, 2024 10:45am Essential hypertension June 08 5:17pm Fatigue June 08, 2024 5:17pm Hypothyroidism June 08, 2024 5:17pm DOLORES (obstructive sleep apnea) May 212023 5:17pm Type 2 diabetes mellitus June 08, 2024 5:17pm 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, limited to breakdown skin June 16, 2024 10:30am Venous stasis 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 June 16, 2024 10:30am Chronic hypoxemic respiratory failure De cember 2023 10:30am COPD (chronic obstructive pulmonary dise ase) June 16, 2024 10:30am Debility June 16, 2024 10:30am Edema of both lower extremities June 16, 2024 10:30am Essential hypertension June 16 10:30am Hypothyroidism June 16, 2024 10:30am Lymphedema June 16, 2024 10:30am Morbid obesity with BMI of 45.0-49.9, ad ult June 16, 2024 10:30am DOLORES (obstructive sleep apnea) May 222023 10:30am Osteoarthritis June 16, 2024 10:30am Pulmonary hypertension June 16 10:30am Type 2 diabetes mellitus June 16, 2024 10:30am Venous insufficiency June 16, 2024 10:30am 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, limited to breakdown skin July 21, 2024 10:00am Venous stasis 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 July 21, 2024 10:00am Chronic hypoxemic respiratory failure Ja nuary 2024 10:00am COPD (chronic obstructive pulmonary dise ase) July 21, 2024 10:00am Debility July 21, 2024 1 0:00am Edema of both lower extremities July 21, 2024 10:00am Essential hypertension July 21 10:00am Hypothyroidism July 21, 2024 1 0:00am Lymphedema July 21, 2024 1 0:00am Morbid obesity with BMI of 45.0-49.9, ad ult July 21, 2024 10:00am DOLORES (obstructive sleep apnea) July 212024 10:00am Osteoarthritis July 21, 2024 1 0:00am Pulmonary hypertension July 21 10:00am Type 2 diabetes mellitus July 21, 025 10:00am Venous insufficiency July 21, 2024 10:00am Venous stasis 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 July 27, 2024 8:33am Lymphedema August 02, 2024 9:52am Venous insufficiency (chronic) (peripher al) August 02, 2024 9:52am 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, limited to breakdown skin August 18, 2024 9:15am Venous stasis 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 August 18, 2024 9:15am Chronic hypoxemic respiratory failure Fe bruary 2024 9:15am COPD (chronic obstructive pulmonary dise ase) August 18, 2024 9:15am Debility August 18, 2024 9:15am Edema of both lower extremities August 18, 2024 9:15am Essential hypertension August 18 9:15am Hypothyroidism August 18, 2024 9:15am Lymphedema August 18, 2024 9:15am Morbid obesity with BMI of 45.0-49.9, ad ult August 18, 2024 9:15am DOLORES (obstructive sleep apnea) July 232024 9:15am Osteoarthritis August 18, 2024 9:15am Pulmonary hypertension August 18 9:15am Type 2 diabetes mellitus August 18, 2024 9:15am Venous insufficiency August 18, 2024 9:15am ATKINS (dyspnea on exertion) August 28 11:41am Essential hypertension August 28, 2024 11:41am Hyperlipidemia August 28, 2024 11: 41am Palpitations August 28, 2024 11: 41am 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, limited to breakdown skin September 01, 2024 9:45am Venous stasis 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 September 01, 2024 9:45am Chronic hypoxemic respiratory failure [facility] 2024 9:45am COPD (chronic obstructive pulmonary dise ase) September 01, 2024 9:45am Debility September 01, 2024 9:4 5am Edema of both lower extremities September 012024 9:45am Essential hypertension September 01, 2024 9:45am Hypothyroidism September 01, 2024 9:4 5am Lymphedema September 01, 2024 9:4 5am Morbid obesity with BMI of 45.0-49.9, ad ult September 01, 2024 9:45am DOLORES (obstructive sleep apnea) August 9:45am Osteoarthritis September 01, 2024 9:4 5am Pulmonary hypertension September 01, 2024 9:45am Type 2 diabetes mellitus September 01 9:45am Venous insufficiency September 01, 2024 9: 45am Chief Complaint Admit Date wound June 01, 2024 2:50pm 3 M FU June 08, 2024 5:17pm wound June 16, 2024 10:30am DOLORES June 27, 2024 1: 00pm wound July 21, 2024 1 0:00am LEFT ABLATION July 27, 2024 8 :33am LEFT ABLATION July 27, 2024 1 0:42am POST OP July 31, 2024 10:55am Post Chemical Ablation 3-4 WK FU uar y 2024 9:52am wound August 18, 2024 9:15am Chest and left arm pain, see NN. L.L. 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, limited to breakdown skin June 16, 2024 10:30am Venous stasis 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 June 16, 2024 10:30am Chronic hypoxemic respiratory failure De cember 2023 10:30am COPD (chronic obstructive pulmonary dise ase) June 16, 2024 10:30am Debility June 16, 2024 10:30am Edema of both lower extremities June 16, 2024 10:30am Essential hypertension June 16 10:30am Hypothyroidism June 16, 2024 10:30am Lymphedema June 16, 2024 10:30am Morbid obesity with BMI of 45.0-49.9, ad ult June 16, 2024 10:30am DOLORES (obstructive sleep apnea) May 222023 10:30am Osteoarthritis June 16, 2024 10:30am Pulmonary hypertension June 16 10:30am Type 2 diabetes mellitus June 16, 2024 10:30am Venous insufficiency June 16, 2024 10:30am 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, limited to breakdown skin July 21, 2024 10:00am Venous stasis 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 July 21, 2024 10:00am Chronic hypoxemic respiratory failure Ja nuary 2024 10:00am COPD (chronic obstructive pulmonary dise ase) July 21, 2024 10:00am Debility July 21, 2024 1 0:00am Edema of both lower extremities July 21, 2024 10:00am Essential hypertension July 21 10:00am Hypothyroidism July 21, 2024 1 0:00am Lymphedema July 21, 2024 1 0:00am Morbid obesity with BMI of 45.0-49.9, ad ult July 21, 2024 10:00am DOLORES (obstructive sleep apnea) July 212024 10:00am Osteoarthritis July 21, 2024 1 0:00am Pulmonary hypertension July 21 10:00am Type 2 diabetes mellitus July 21, 025 10:00am Venous insufficiency July 21, 2024 10:00am Venous stasis 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 July 27, 2024 8:33am Lymphedema August 02, 2024 9:52am Venous insufficiency (chronic) (peripher al) August 02, 2024 9:52am 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, limited to breakdown skin August 18, 2024 9:15am Venous stasis 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 August 18, 2024 9:15am Chronic hypoxemic respiratory failure Fe bruary 2024 9:15am COPD (chronic obstructive pulmonary dise ase) August 18, 2024 9:15am Debility August 18, 2024 9:15am Edema of both lower extremities August 18, 2024 9:15am Essential hypertension August 18 9:15am Hypothyroidism August 18, 2024 9:15am Lymphedema August 18, 2024 9:15am Morbid obesity with BMI of 45.0-49.9, ad ult August 18, 2024 9:15am DOLORES (obstructive sleep apnea) July 232024 9:15am Osteoarthritis August 18, 2024 9:15am Pulmonary hypertension August 18 9:15am Type 2 diabetes mellitus August 18, 2024 9:15am Venous insufficiency August 18, 2024 9:15am ATKINS (dyspnea on exertion) August 28 11:41am Essential hypertension August 28, 2024 11:41am Hyperlipidemia August 28, 2024 11: 41am Palpitations August 28, 2024 11: 41am 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, limited to breakdown skin September 15, 2024 9:30am Venous stasis 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 September 15, 2024 9:30am Chronic hypoxemic respiratory failure Ma [facility] 2024 9:30am COPD (chronic obstructive pulmonary dise ase) September 15, 2024 9:30am Debility September 15, 2024 9:3 0am Edema of both lower extremities September 152024 9:30am Essential hypertension September 15, 2024 9:30am Hypothyroidism September 15, 2024 9:3 0am Lymphedema September 15, 2024 9:3 0am Morbid obesity with BMI of 45.0-49.9, ad ult September 15, 2024 9:30am DOLORES (obstructive sleep apnea) August 9:30am Osteoarthritis September 15, 2024 9:3 0am Pulmonary hypertension September 15, 2024 9:30am Type 2 diabetes mellitus September 15 9:30am Venous insufficiency September 15, 2024 9: 30am Chief Complaint Admit Date wound June 01, 2024 2:50pm 3 M FU June 08, 2024 5:17pm wound June 16, 2024 10:30am DOLORES June 27, 2024 1: 00pm wound July 21, 2024 1 0:00am LEFT ABLATION July 27, 2024 8 :33am LEFT ABLATION July 27, 2024 1 0:42am POST OP July 31, 2024 10:55am Post Chemical Ablation 3-4 WK FU 2024 9:52am wound August 18, 2024 9:15am Chest and left arm pain, see NN. Oniel Bowens [facility] 2024 11:41am E ORDER August 28, 2024 1:0 7pm wound September 15, 2024 9:3 0am DYSPNEA September 22, 2024 7:03 am Chief Complaint Admit Date wound July 21, 2024 1 0:00am LEFT ABLATION July 27, 2024 8 :33am LEFT ABLATION July 27, 2024 1 0:42am POST OP July 31, 2024 10:55am Post Chemical Ablation 3-4 WK FU 2024 9:52am wound August 18, 2024 9:15am Chest and left arm pain, see NN. 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, limited to breakdown skin July 21, 2024 10:00am Venous stasis 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 July 21, 2024 10:00am Chronic hypoxemic respiratory failure Ja nuary 2024 10:00am COPD (chronic obstructive pulmonary dise ase) July 21, 2024 10:00am Debility July 21, 2024 1 0:00am Edema of both lower extremities July 21, 2024 10:00am Essential hypertension July 21 10:00am Hypothyroidism July 21, 2024 1 0:00am Lymphedema July 21, 2024 1 0:00am Morbid obesity with BMI of 45.0-49.9, ad ult July 21, 2024 10:00am DOLORES (obstructive sleep apnea) July 212024 10:00am Osteoarthritis July 21, 2024 1 0:00am Pulmonary hypertension July 21 10:00am Type 2 diabetes mellitus July 21, 025 10:00am Venous insufficiency July 21, 2024 10:00am Venous stasis 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 July 27, 2024 8:33am Lymphedema August 02, 2024 9:52am Venous insufficiency (chronic) (peripher al) August 02, 2024 9:52am 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, limited to breakdown skin August 18, 2024 9:15am Venous stasis ulcer of left ankle limited to breakdown of skin August 18, 2024 9:15am Chronic hypoxemic respiratory failure Fe bruary 2024 9:15am COPD (chronic obstructive pulmonary dise ase) August 18, 2024 9:15am Debility August 18, 2024 9:15am Edema of both lower extremities August 18, 2024 9:15am Essential hypertension August 18 9:15am Hypothyroidism August 18, 2024 9:15am Lymphedema August 18, 2024 9:15am Morbid obesity with BMI of 45.0-49.9, ad ult August 18, 2024 9:15am DOLORES (obstructive sleep apnea) July 232024 9:15am Osteoarthritis August 18, 2024 9:15am Pulmonary hypertension August 18 9:15am Type 2 diabetes mellitus August 18, 2024 9:15am Venous insufficiency August 18, 2024 9:15am ATKINS (dyspnea on exertion) August 28 11:41am Essential hypertension August 28, 2024 11:41am Hyperlipidemia August 28, 2024 11: 41am Palpitations August 28, 2024 11: 41am 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, limited to breakdown skin September 15, 2024 9:30am Venous stasis ulcer of left ankle limited to breakdown of skin September 15, 2024 9:30am Chronic hypoxemic respiratory failure Ma [facility] 2024 9:30am COPD (chronic obstructive pulmonary dise ase) September 15, 2024 9:30am Debility September 15, 2024 9:3 0am Edema of both lower extremities September 152024 9:30am Essential hypertension September 15, 2024 9:30am Hypothyroidism September 15, 2024 9:3 0am Lymphedema September 15, 2024 9:3 0am Morbid obesity with BMI of 45.0-49.9, ad ult September 15, 2024 9:30am DOLORES (obstructive sleep apnea) August 9:30am Osteoarthritis September 15, 2024 9:3 0am Pulmonary hypertension September 15, 2024 9:30am Type 2 diabetes mellitus September 15 9:30am Venous insufficiency September 15, 2024 9: 30am Dizziness October 03, 2024 10: 44am Essential hypertension October 03, 2024 10:44am Hyperlipidemia October 03, 2024 10: 44am Palpitations October 03, 2024 10: 44am 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, limited to breakdown skin October 13, 2024 10:00am Venous stasis ulcer of left ankle limited to breakdown of skin October 13, 2024 10:00am Chronic hypoxemic respiratory failure Ap ril 2024 10:00am COPD (chronic obstructive pulmonary dise ase) October 13, 2024 10:00am Debility October 13, 2024 10: 00am Edema of both lower extremities October 132024 10:00am Essential hypertension October 13, 2024 10:00am Hypothyroidism October 13, 2024 10: 00am Lymphedema October 13, 2024 10: 00am Morbid obesity with BMI of 45.0-49.9, ad ult October 13, 2024 10:00am DOLORES (obstructive sleep apnea) September 10:00am Osteoarthritis October 13, 2024 10: 00am Pulmonary hypertension October 13, 2024 10:00am Type 2 diabetes mellitus October 13 10:00am Venous insufficiency October 13, 2024 10 :00am 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 October 18, 2024 1:26pm Morbid obesity with BMI of 45.0-49.9, ad ult October 18, 2024 1:26pm DOLORES (obstructive sleep apnea) September 1:26pm Pulmonary hypertension October 18, 2024 1:26pm 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, limited to breakdown skin November 03, 2024 10:00am Venous stasis ulcer of left ankle limited to breakdown of skin November 03, 2024 10:00am Chronic hypoxemic respiratory failure Ma y 2024 10:00am COPD (chronic obstructive pulmonary dise ase) November 03, 2024 10:00am Debility November 03, 2024 10:00 am Edema of both lower extremities October 10:00am Essential hypertension November 03, 2024 10 :00am Hypothyroidism November 03, 2024 10:00 am Lymphedema November 03, 2024 10:00 am Morbid obesity with BMI of 45.0-49.9, ad ult November 03, 2024 10:00am DOLORES (obstructive sleep apnea) November 03, 2024 10:00am Osteoarthritis November 03, 2024 10:00 am Pulmonary hypertension November 03, 2024 10 :00am Type 2 diabetes mellitus November 03, 2024 10:00am Venous insufficiency November 03, 2024 10:0 0am Chief Complaint Admit Date wound July 21, 2024 1 0:00am LEFT ABLATION July 27, 2024 8 :33am LEFT ABLATION July 27, 2024 1 0:42am POST OP July 31, 2024 10:55am Post Chemical Ablation 3-4 WK FU 2024 9:52am wound August 18, 2024 9:15am Chest and left arm pain, see NN. 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, limited to breakdown skin July 21, 2024 10:00am Venous stasis ulcer of left ankle limited to breakdown of skin July 21, 2024 10:00am Chronic hypoxemic respiratory failure Ja nuary 2024 10:00am COPD (chronic obstructive pulmonary dise ase) July 21, 2024 10:00am Debility July 21, 2024 1 0:00am Edema of both lower extremities July 21, 2024 10:00am Essential hypertension July 21 10:00am Hypothyroidism July 21, 2024 1 0:00am Lymphedema July 21, 2024 1 0:00am Morbid obesity with BMI of 45.0-49.9, ad ult July 21, 2024 10:00am DOLORES (obstructive sleep apnea) July 212024 10:00am Osteoarthritis July 21, 2024 1 0:00am Pulmonary hypertension July 21 10:00am Type 2 diabetes mellitus July 21, 2 025 10:00am Venous insufficiency July 21, 2024 10:00am Venous stasis ulcer of left ankle limited to breakdown of skin July 27, 2024 8:33am Lymphedema August 02, 2024 9:52am Venous insufficiency (chronic) (peripher al) August 02, 2024 9:52am 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, limited to breakdown skin August 18, 2024 9:15am Venous stasis ulcer of left ankle limited to breakdown of skin August 18, 2024 9:15am Chronic hypoxemic respiratory failure Fe bruary 2024 9:15am COPD (chronic obstructive pulmonary dise ase) August 18, 2024 9:15am Debility August 18, 2024 9:15am Edema of both lower extremities August 18, 2024 9:15am Essential hypertension August 18 9:15am Hypothyroidism August 18, 2024 9:15am Lymphedema August 18, 2024 9:15am Morbid obesity with BMI of 45.0-49.9, ad ult August 18, 2024 9:15am DOLORES (obstructive sleep apnea) July 232024 9:15am Osteoarthritis August 18, 2024 9:15am Pulmonary hypertension August 18 9:15am Type 2 diabetes mellitus August 18, 2024 9:15am Venous insufficiency August 18, 2024 9:15am ATKINS (dyspnea on exertion) August 28 11:41am Essential hypertension August 28, 2024 11:41am Hyperlipidemia August 28, 2024 11: 41am Palpitations August 28, 2024 11: 41am 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, limited to breakdown skin September 15, 2024 9:30am Venous stasis ulcer of left ankle limited to breakdown of skin September 15, 2024 9:30am Chronic hypoxemic respiratory failure [facility] 2024 9:30am COPD (chronic obstructive pulmonary dise ase) September 15, 2024 9:30am Debility September 15, 2024 9:3 0am Edema of both lower extremities September 152024 9:30am Essential hypertension September 15, 2024 9:30am Hypothyroidism September 15, 2024 9:3 0am Lymphedema September 15, 2024 9:3 0am Morbid obesity with BMI of 45.0-49.9, ad ult September 15, 2024 9:30am DOLORES (obstructive sleep apnea) August 9:30am Osteoarthritis September 15, 2024 9:3 0am Pulmonary hypertension September 15, 2024 9:30am Type 2 diabetes mellitus September 15 9:30am Venous insufficiency September 15, 2024 9: 30am Dizziness October 03, 2024 10: 44am Essential hypertension October 03, 2024 10:44am Hyperlipidemia October 03, 2024 10: 44am Palpitations October 03, 2024 10: 44am 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, limited to breakdown skin October 13, 2024 10:00am Venous stasis ulcer of left ankle limited to breakdown of skin October 13, 2024 10:00am Chronic hypoxemic respiratory failure Ap ril 2024 10:00am COPD (chronic obstructive pulmonary dise ase) October 13, 2024 10:00am Debility October 13, 2024 10: 00am Edema of both lower extremities October 132024 10:00am Essential hypertension October 13, 2024 10:00am Hypothyroidism October 13, 2024 10: 00am Lymphedema October 13, 2024 10: 00am Morbid obesity with BMI of 45.0-49.9, ad ult October 13, 2024 10:00am DOLORES (obstructive sleep apnea) September 10:00am Osteoarthritis October 13, 2024 10: 00am Pulmonary hypertension October 13, 2024 10:00am Type 2 diabetes mellitus October 13 10:00am Venous insufficiency October 13, 2024 10 :00am 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 October 18, 2024 1:26pm Morbid obesity with BMI of 45.0-49.9, ad ult October 18, 2024 1:26pm DOLORES (obstructive sleep apnea) September 1:26pm Pulmonary hypertension October 18, 2024 1:26pm Essential hypertension November 06, 2024 10 :35am Hypothyroidism November 06, 2024 10:35 am Insomnia November 06, 2024 10:35 am Cellulitis of left lower extremity October 202024 10:15am 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, limited to breakdown skin November 10, 2024 10:15am Venous stasis ulcer of left ankle limited to breakdown of skin November 10, 2024 10:15am Chronic hypoxemic respiratory failure Ma y 2024 10:15am COPD (chronic obstructive pulmonary dise ase) November 10, 2024 10:15am Debility November 10, 2024 10:15 am Edema of both lower extremities October 10:15am Essential hypertension November 10, 2024 10 :15am Hypothyroidism November 10, 2024 10:15 am Lymphedema November 10, 2024 10:15 am Morbid obesity with BMI of 45.0-49.9, ad ult November 10, 2024 10:15am DOLORES (obstructive sleep apnea) November 10, 2024 10:15am Osteoarthritis November 10, 2024 10:15 am Pulmonary hypertension November 10, 2024 10 :15am Type 2 diabetes mellitus November 10, 2024 10:15am Venous insufficiency November 10, 2024 10:1 5am Chief Complaint Admit Date wound July 21, 2024 1 0:00am LEFT ABLATION July 27, 2024 8 :33am LEFT ABLATION July 27, 2024 1 0:42am POST OP July 31, 2024 10:55am Post Chemical Ablation 3-4 WK FU 2024 9:52am wound August 18, 2024 9:15am Chest and left arm pain, see NN. Oniel Bowens [facility] 2024 11:41am E ORDER August 28, 2024 1:0 7pm wound September 15, 2024 9:3 0am DYSPNEA September 22, 2024 7:03 am 6 M FU October 03, 2024 10: 44am wound October 13, 2024 10: 00am DIZZINESS October 16, 2024 1:1 0pm Amb Documentation October 17, 2024 2:3 3pm 6 M FU October 18, 2024 1:2 6pm 5 M FU November 06, 2024 10:35 am PLACEMENT November 14, 2024 10:02 am GENTAMICIN November 14, 2024 11:54 am wound November 15, 2024 10:00 am PICC draw-gentamycin level & additional labs November 15, 2024 10:45am Reason for Visit Admit Date 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, limited to breakdown skin July 21, 2024 10:00am Venous stasis ulcer of left ankle limited to breakdown of skin July 21, 2024 10:00am Chronic hypoxemic respiratory failure Ja nuary 2024 10:00am COPD (chronic obstructive pulmonary dise ase) July 21, 2024 10:00am Debility July 21, 2024 1 0:00am Edema of both lower extremities July 21, 2024 10:00am Essential hypertension July 21 10:00am Hypothyroidism July 21, 2024 1 0:00am Lymphedema July 21, 2024 1 0:00am Morbid obesity with BMI of 45.0-49.9, ad ult July 21, 2024 10:00am DOLORES (obstructive sleep apnea) July 212024 10:00am Osteoarthritis July 21, 2024 1 0:00am Pulmonary hypertension July 21 10:00am Type 2 diabetes mellitus July 21, 2 025 10:00am Venous insufficiency July 21, 2024 10:00am Venous stasis ulcer of left ankle limited to breakdown of skin July 27, 2024 8:33am Lymphedema August 02, 2024 9:52am Venous insufficiency (chronic) (peripher al) August 02, 2024 9:52am 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, limited to breakdown skin August 18, 2024 9:15am Venous stasis ulcer of left ankle limited to breakdown of skin August 18, 2024 9:15am Chronic hypoxemic respiratory failure Fe bruary 2024 9:15am COPD (chronic obstructive pulmonary dise ase) August 18, 2024 9:15am Debility August 18, 2024 9:15am Edema of both lower extremities August 18, 2024 9:15am Essential hypertension August 18 9:15am Hypothyroidism August 18, 2024 9:15am Lymphedema August 18, 2024 9:15am Morbid obesity with BMI of 45.0-49.9, ad ult August 18, 2024 9:15am DOLORES (obstructive sleep apnea) July 232024 9:15am Osteoarthritis August 18, 2024 9:15am Pulmonary hypertension August 18 9:15am Type 2 diabetes mellitus August 18, 2024 9:15am Venous insufficiency August 18, 2024 9:15am ATKINS (dyspnea on exertion) August 28 11:41am Essential hypertension August 28, 2024 11:41am Hyperlipidemia August 28, 2024 11: 41am Palpitations August 28, 2024 11: 41am 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, limited to breakdown skin September 15, 2024 9:30am Venous stasis ulcer of left ankle limited to breakdown of skin September 15, 2024 9:30am Chronic hypoxemic respiratory failure [facility] 2024 9:30am COPD (chronic obstructive pulmonary dise ase) September 15, 2024 9:30am Debility September 15, 2024 9:3 0am Edema of both lower extremities September 152024 9:30am Essential hypertension September 15, 2024 9:30am Hypothyroidism September 15, 2024 9:3 0am Lymphedema September 15, 2024 9:3 0am Morbid obesity with BMI of 45.0-49.9, ad ult September 15, 2024 9:30am DOLORES (obstructive sleep apnea) August 9:30am Osteoarthritis September 15, 2024 9:3 0am Pulmonary hypertension September 15, 2024 9:30am Type 2 diabetes mellitus September 15 9:30am Venous insufficiency September 15, 2024 9: 30am Dizziness October 03, 2024 10: 44am Essential hypertension October 03, 2024 10:44am Hyperlipidemia October 03, 2024 10: 44am Palpitations October 03, 2024 10: 44am 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, limited to breakdown skin October 13, 2024 10:00am Venous stasis ulcer of left ankle limited to breakdown of skin October 13, 2024 10:00am Chronic hypoxemic respiratory failure Ap ril 2024 10:00am COPD (chronic obstructive pulmonary dise ase) October 13, 2024 10:00am Debility October 13, 2024 10: 00am Edema of both lower extremities October 132024 10:00am Essential hypertension October 13, 2024 10:00am Hypothyroidism October 13, 2024 10: 00am Lymphedema October 13, 2024 10: 00am Morbid obesity with BMI of 45.0-49.9, ad ult October 13, 2024 10:00am DOLORES (obstructive sleep apnea) September 10:00am Osteoarthritis October 13, 2024 10: 00am Pulmonary hypertension October 13, 2024 10:00am Type 2 diabetes mellitus October 13 10:00am Venous insufficiency October 13, 2024 10 :00am 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 October 18, 2024 1:26pm Morbid obesity with BMI of 45.0-49.9, ad ult October 18, 2024 1:26pm DOLORES (obstructive sleep apnea) September 1:26pm Pulmonary hypertension October 18, 2024 1:26pm Essential hypertension November 06, 2024 10 :35am Hypothyroidism November 06, 2024 10:35 am Insomnia November 06, 2024 10:35 am Cellulitis of left lower extremity October 202024 10:00am 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, limited to breakdown skin November 15, 2024 10:00am Venous stasis ulcer of left ankle limited to breakdown of skin November 15, 2024 10:00am Chronic hypoxemic respiratory failure Ma y 2024 10:00am COPD (chronic obstructive pulmonary dise ase) November 15, 2024 10:00am Debility November 15, 2024 10:00 am Edema of both lower extremities October 10:00am Essential hypertension November 15, 2024 10 :00am Hypothyroidism November 15, 2024 10:00 am Lymphedema November 15, 2024 10:00 am Morbid obesity with BMI of 45.0-49.9, ad ult November 15, 2024 10:00am DOLORES (obstructive sleep apnea) November 15, 2024 10:00am Osteoarthritis November 15, 2024 10:00 am Pulmonary hypertension November 15, 2024 10 :00am Type 2 diabetes mellitus November 15, 2024 10:00am Venous insufficiency November 15, 2024 10:0 0am Chief Complaint Admit Date wound July 21, 2024 1 0:00am LEFT ABLATION July 27, 2024 8 :33am LEFT ABLATION July 27, 2024 1 0:42am POST OP July 31, 2024 10:55am Post Chemical Ablation 3-4 WK FU 2024 9:52am wound August 18, 2024 9:15am Chest and left arm pain, see NN. L.L. Gogo [facility] 2024 11:41am E ORDER August 28, 2024 1:0 7pm wound September 15, 2024 9:3 0am DYSPNEA September 22, 2024 7:03 am 6 M FU October 03, 2024 10: 44am wound October 13, 2024 10: 00am DIZZINESS October 16, 2024 1:1 0pm Amb Documentation October 17, 2024 2:3 3pm 6 M FU October 18, 2024 1:2 6pm 5 M FU November 06, 2024 10:35 am PLACEMENT November 14, 2024 10:02 am GENTAMICIN November 14, 2024 11:54 am wound November 15, 2024 10:00 am PICC draw-gentamycin level & additional labs November 15, 2024 10:45am GENTAMICIN November 16, 2024 7:52a m Chief Complaint Admit Date wound July 21, 2024 1 0:00am LEFT ABLATION July 27, 2024 8 :33am LEFT ABLATION July 27, 2024 1 0:42am POST OP July 31, 2024 10:55am Post Chemical Ablation 3-4 WK FU 2024 9:52am wound August 18, 2024 9:15am Chest and left arm pain, see NN. Oniel Bowens [facility] 2024 11:41am E ORDER August 28, 2024 1:0 7pm wound September 15, 2024 9:3 0am DYSPNEA September 22, 2024 7:03 am 6 M FU October 03, 2024 10: 44am wound October 13, 2024 10: 00am DIZZINESS October 16, 2024 1:1 0pm Amb Documentation October 17, 2024 2:3 3pm 6 M FU October 18, 2024 1:2 6pm 5 M FU November 06, 2024 10:35 am PLACEMENT November 14, 2024 10:02 am GENTAMICIN November 14, 2024 11:54 am PICC draw-gentamycin level & additional labs November 15, 2024 10:45am GENTAMICIN November 16, 2024 7:52a m GENTAMICIN November 17, 2024 8:49a m wound November 17, 2024 10:15 am Reason for Visit Admit Date 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, limited to breakdown skin July 21, 2024 10:00am Venous stasis ulcer of left ankle limited to breakdown of skin July 21, 2024 10:00am Chronic hypoxemic respiratory failure Jennifer mendez 2024 10:00am COPD (chronic obstructive pulmonary dise ase) July 21, 2024 10:00am Debility July 21, 2024 1 0:00am Edema of both lower extremities July 21, 2024 10:00am Essential hypertension July 21 10:00am Hypothyroidism July 21, 2024 1 0:00am Lymphedema July 21, 2024 1 0:00am Morbid obesity with BMI of 45.0-49.9, ad ult July 21, 2024 10:00am DOLORES (obstructive sleep apnea) July 212024 10:00am Osteoarthritis July 21, 2024 1 0:00am Pulmonary hypertension July 21 10:00am Type 2 diabetes mellitus July 21, 2 025 10:00am Venous insufficiency July 21, 2024 10:00am Venous stasis ulcer of left ankle limited to breakdown of skin July 27, 2024 8:33am Lymphedema August 02, 2024 9:52am Venous insufficiency (chronic) (peripher al) August 02, 2024 9:52am 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, limited to breakdown skin August 18, 2024 9:15am Venous stasis ulcer of left ankle limited to breakdown of skin August 18, 2024 9:15am Chronic hypoxemic respiratory failure Fe bruary 2024 9:15am COPD (chronic obstructive pulmonary dise ase) August 18, 2024 9:15am Debility August 18, 2024 9:15am Edema of both lower extremities August 18, 2024 9:15am Essential hypertension August 18 9:15am Hypothyroidism August 18, 2024 9:15am Lymphedema August 18, 2024 9:15am Morbid obesity with BMI of 45.0-49.9, ad ult August 18, 2024 9:15am DOLORES (obstructive sleep apnea) July 232024 9:15am Osteoarthritis August 18, 2024 9:15am Pulmonary hypertension August 18 9:15am Type 2 diabetes mellitus August 18, 2024 9:15am Venous insufficiency August 18, 2024 9:15am ATKINS (dyspnea on exertion) August 28 11:41am Essential hypertension August 28, 2024 11:41am Hyperlipidemia August 28, 2024 11: 41am Palpitations August 28, 2024 11: 41am 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, limited to breakdown skin September 15, 2024 9:30am Venous stasis ulcer of left ankle limited to breakdown of skin September 15, 2024 9:30am Chronic hypoxemic respiratory failure [facility] 2024 9:30am COPD (chronic obstructive pulmonary dise ase) September 15, 2024 9:30am Debility September 15, 2024 9:3 0am Edema of both lower extremities September 152024 9:30am Essential hypertension September 15, 2024 9:30am Hypothyroidism September 15, 2024 9:3 0am Lymphedema September 15, 2024 9:3 0am Morbid obesity with BMI of 45.0-49.9, ad ult September 15, 2024 9:30am DOLORES (obstructive sleep apnea) August 9:30am Osteoarthritis September 15, 2024 9:3 0am Pulmonary hypertension September 15, 2024 9:30am Type 2 diabetes mellitus September 15 9:30am Venous insufficiency September 15, 2024 9: 30am Dizziness October 03, 2024 10: 44am Essential hypertension October 03, 2024 10:44am Hyperlipidemia October 03, 2024 10: 44am Palpitations October 03, 2024 10: 44am 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, limited to breakdown skin October 13, 2024 10:00am Venous stasis ulcer of left ankle limited to breakdown of skin October 13, 2024 10:00am Chronic hypoxemic respiratory failure Ap 2024 10:00am COPD (chronic obstructive pulmonary dise ase) October 13, 2024 10:00am Debility October 13, 2024 10: 00am Edema of both lower extremities October 132024 10:00am Essential hypertension October 13, 2024 10:00am Hypothyroidism October 13, 2024 10: 00am Lymphedema October 13, 2024 10: 00am Morbid obesity with BMI of 45.0-49.9, ad ult October 13, 2024 10:00am DOLORES (obstructive sleep apnea) September 10:00am Osteoarthritis October 13, 2024 10: 00am Pulmonary hypertension October 13, 2024 10:00am Type 2 diabetes mellitus October 13 10:00am Venous insufficiency October 13, 2024 10 :00am 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 October 18, 2024 1:26pm Morbid obesity with BMI of 45.0-49.9, ad ult October 18, 2024 1:26pm DOLORES (obstructive sleep apnea) September 1:26pm Pulmonary hypertension October 18, 2024 1:26pm Essential hypertension November 06, 2024 10 :35am Hypothyroidism November 06, 2024 10:35 am Insomnia November 06, 2024 10:35 am Cellulitis of left lower extremity October 212024 10:15am 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, limited to breakdown skin November 17, 2024 10:15am Venous stasis ulcer of left ankle limited to breakdown of skin November 17, 2024 10:15am Venous stasis ulcer of left calf with fa t layer exposed November 17, 2024 10:15am Venous stasis ulcer of right calf with f at layer exposed November 17, 2024 10:15am Venous ulcer with fat layer exposed November 17, 2024 10:15am Chronic hypoxemic respiratory failure Ma y 2024 10:15am COPD (chronic obstructive pulmonary dise ase) November 17, 2024 10:15am Debility November 17, 2024 10:15 am Edema of both lower extremities October 10:15am Essential hypertension November 17, 2024 10 :15am Hypothyroidism November 17, 2024 10:15 am Lymphedema November 17, 2024 10:15 am Morbid obesity with BMI of 45.0-49.9, ad ult November 17, 2024 10:15am DOLORES (obstructive sleep apnea) November 17, 2024 10:15am Osteoarthritis November 17, 2024 10:15 am Pulmonary hypertension November 17, 2024 10 :15am Type 2 diabetes mellitus November 17, 2024 10:15am Venous insufficiency November 17, 2024 10:1 5am Chief Complaint Admit Date wound July 21, 2024 1 0:00am LEFT ABLATION July 27, 2024 8 :33am LEFT ABLATION July 27, 2024 1 0:42am POST OP July 31, 2024 10:55am Post Chemical Ablation 3-4 WK FU 2024 9:52am wound August 18, 2024 9:15am Chest and left arm pain, see NN. L.L. Gogo [facility] 2024 11:41am E ORDER August 28, 2024 1:0 7pm wound September 15, 2024 9:3 0am DYSPNEA September 22, 2024 7:03 am 6 M FU October 03, 2024 10: 44am wound October 13, 2024 10: 00am DIZZINESS October 16, 2024 1:1 0pm Amb Documentation October 17, 2024 2:3 3pm 6 M FU October 18, 2024 1:2 6pm 5 M FU November 06, 2024 10:35 am PLACEMENT November 14, 2024 10:02 am GENTAMICIN November 14, 2024 11:54 am PICC draw-gentamycin level & additional labs November 15, 2024 10:45am GENTAMICIN November 16, 2024 7:52a m GENTAMICIN November 17, 2024 8:49a m wound November 17, 2024 10:15 am GENTAMICIN November 18, 2024 9:16a m Chief Complaint Admit Date LEFT ABLATION July 27, 2024 8 :33am LEFT ABLATION July 27, 2024 1 0:42am POST OP July 31, 2024 10:55am Post Chemical Ablation 3-4 WK FU 2024 9:52am wound August 18, 2024 9:15am Chest and left arm pain, see NN. Oniel Bowens [facility] 2024 11:41am E ORDER August 28, 2024 1:0 7pm wound September 15, 2024 9:3 0am DYSPNEA September 22, 2024 7:03 am 6 M FU October 03, 2024 10: 44am wound October 13, 2024 10: 00am DIZZINESS October 16, 2024 1:1 0pm Amb Documentation October 17, 2024 2:3 3pm 6 M FU October 18, 2024 1:2 6pm 5 M FU November 06, 2024 10:35 am PLACEMENT November 14, 2024 10:02 am GENTAMICIN November 14, 2024 11:54 am PICC draw-gentamycin level & additional labs November 15, 2024 10:45am GENTAMICIN November 16, 2024 7:52a m GENTAMICIN November 17, 2024 8:49a m wound November 17, 2024 10:15 am GENTAMICIN November 18, 2024 9:16a m Reason for Visit Admit Date Venous stasis ulcer of left ankle limited to breakdown of skin July 27, 2024 8:33am Lymphedema August 02, 2024 9:52am Venous insufficiency (chronic) (peripher al) August 02, 2024 9:52am 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, limited to breakdown skin August 18, 2024 9:15am Venous stasis ulcer of left ankle limited to breakdown of skin August 18, 2024 9:15am Chronic hypoxemic respiratory failure Fe bruary 2024 9:15am COPD (chronic obstructive pulmonary dise ase) August 18, 2024 9:15am Debility August 18, 2024 9:15am Edema of both lower extremities August 18, 2024 9:15am Essential hypertension August 18 9:15am Hypothyroidism August 18, 2024 9:15am Lymphedema August 18, 2024 9:15am Morbid obesity with BMI of 45.0-49.9, ad ult August 18, 2024 9:15am DOLORES (obstructive sleep apnea) July 232024 9:15am Osteoarthritis August 18, 2024 9:15am Pulmonary hypertension August 18 9:15am Type 2 diabetes mellitus August 18, 2024 9:15am Venous insufficiency August 18, 2024 9:15am ATKINS (dyspnea on exertion) August 28 11:41am Essential hypertension August 28, 2024 11:41am Hyperlipidemia August 28, 2024 11: 41am Palpitations August 28, 2024 11: 41am 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, limited to breakdown skin September 15, 2024 9:30am Venous stasis ulcer of left ankle limited to breakdown of skin September 15, 2024 9:30am Chronic hypoxemic respiratory failure Ma [facility] 2024 9:30am COPD (chronic obstructive pulmonary dise ase) September 15, 2024 9:30am Debility September 15, 2024 9:3 0am Edema of both lower extremities September 152024 9:30am Essential hypertension September 15, 2024 9:30am Hypothyroidism September 15, 2024 9:3 0am Lymphedema September 15, 2024 9:3 0am Morbid obesity with BMI of 45.0-49.9, ad ult September 15, 2024 9:30am DOLORES (obstructive sleep apnea) August 9:30am Osteoarthritis September 15, 2024 9:3 0am Pulmonary hypertension September 15, 2024 9:30am Type 2 diabetes mellitus September 15 9:30am Venous insufficiency September 15, 2024 9: 30am Dizziness October 03, 2024 10: 44am Essential hypertension October 03, 2024 10:44am Hyperlipidemia October 03, 2024 10: 44am Palpitations October 03, 2024 10: 44am 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, limited to breakdown skin October 13, 2024 10:00am Venous stasis ulcer of left ankle limited to breakdown of skin October 13, 2024 10:00am Chronic hypoxemic respiratory failure Ap ril 2024 10:00am COPD (chronic obstructive pulmonary dise ase) October 13, 2024 10:00am Debility October 13, 2024 10: 00am Edema of both lower extremities October 132024 10:00am Essential hypertension October 13, 2024 10:00am Hypothyroidism October 13, 2024 10: 00am Lymphedema October 13, 2024 10: 00am Morbid obesity with BMI of 45.0-49.9, ad ult October 13, 2024 10:00am DOLORES (obstructive sleep apnea) September 10:00am Osteoarthritis October 13, 2024 10: 00am Pulmonary hypertension October 13, 2024 10:00am Type 2 diabetes mellitus October 13 10:00am Venous insufficiency October 13, 2024 10 :00am 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 October 18, 2024 1:26pm Morbid obesity with BMI of 45.0-49.9, ad ult October 18, 2024 1:26pm DOLORES (obstructive sleep apnea) September 1:26pm Pulmonary hypertension October 18, 2024 1:26pm Essential hypertension November 06, 2024 10 :35am Hypothyroidism November 06, 2024 10:35 am Insomnia November 06, 2024 10:35 am Cellulitis of left lower extremity October 212024 10:15am 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, limited to breakdown skin November 17, 2024 10:15am Venous stasis ulcer of left ankle limited to breakdown of skin November 17, 2024 10:15am Venous stasis ulcer of left calf with fa t layer exposed November 17, 2024 10:15am Venous stasis ulcer of right calf with f at layer exposed November 17, 2024 10:15am Venous ulcer with fat layer exposed November 17, 2024 10:15am Chronic hypoxemic respiratory failure Ma y 2024 10:15am COPD (chronic obstructive pulmonary dise ase) November 17, 2024 10:15am Debility November 17, 2024 10:15 am Edema of both lower extremities October 10:15am Essential hypertension November 17, 2024 10 :15am Hypothyroidism November 17, 2024 10:15 am Lymphedema November 17, 2024 10:15 am Morbid obesity with BMI of 45.0-49.9, ad ult November 17, 2024 10:15am DOLORES (obstructive sleep apnea) November 17, 2024 10:15am Osteoarthritis November 17, 2024 10:15 am Pulmonary hypertension November 17, 2024 10 :15am Type 2 diabetes mellitus November 17, 2024 10:15am Venous insufficiency November 17, 2024 10:1 5am Chief Complaint Admit Date LEFT ABLATION July 27, 2024 8 :33am LEFT ABLATION July 27, 2024 1 0:42am POST OP July 31, 2024 10:55am Post Chemical Ablation 3-4 WK FU 2024 9:52am wound August 18, 2024 9:15am Chest and left arm pain, see NN. Oniel Bowens [facility] 2024 11:41am E ORDER August 28, 2024 1:0 7pm wound September 15, 2024 9:3 0am DYSPNEA September 22, 2024 7:03 am 6 M FU October 03, 2024 10: 44am wound October 13, 2024 10: 00am DIZZINESS October 16, 2024 1:1 0pm Amb Documentation October 17, 2024 2:3 3pm 6 M FU October 18, 2024 1:2 6pm 5 M FU November 06, 2024 10:35 am PLACEMENT November 14, 2024 10:02 am GENTAMICIN November 14, 2024 11:54 am PICC draw-gentamycin level & additional labs November 15, 2024 10:45am GENTAMICIN November 16, 2024 7:52a m GENTAMICIN November 17, 2024 8:49a m wound November 17, 2024 10:15 am GENTAMICIN November 18, 2024 9:16a m PICC draw/drsg change November 20, 2024 10: 26am Chief Complaint Admit Date LEFT ABLATION July 27, 2024 8 :33am LEFT ABLATION July 27, 2024 1 0:42am POST OP July 31, 2024 10:55am Post Chemical Ablation 3-4 WK 2024 9:52am wound August 18, 2024 9:15am Chest and left arm pain, see FABIOLA. LMarita Bowens [facility] 2024 11:41am E ORDER August 28, 2024 1:0 7pm wound September 15, 2024 9:3 0am DYSPNEA September 22, 2024 7:03 am 6 M FU October 03, 2024 10: 44am wound October 13, 2024 10: 00am DIZZINESS October 16, 2024 1:1 0pm Amb Documentation October 17, 2024 2:3 3pm 6 M FU October 18, 2024 1:2 6pm 5 M FU November 06, 2024 10:35 am PLACEMENT November 14, 2024 10:02 am GENTAMICIN November 14, 2024 11:54 am PICC draw-gentamycin level & additional labs November 15, 2024 10:45am GENTAMICIN November 16, 2024 7:52a m GENTAMICIN November 17, 2024 8:49a m wound November 17, 2024 10:15 am GENTAMICIN November 18, 2024 9:16a m PICC draw/drsg change November 20, 2024 10: 26am GENTAMICIN November 22, 2024 9:17a m Chief Complaint Admit Date POST OP July 31, 2024 10:55am Post Chemical Ablation 3-4 WK FU 2024 9:52am wound August 18, 2024 9:15am Chest and left arm pain, see FABIOLA. Oniel Bowens [facility] 2024 11:41am E ORDER August 28, 2024 1:0 7pm wound September 15, 2024 9:3 0am DYSPNEA September 22, 2024 7:03 am 6 M FU October 03, 2024 10: 44am wound October 13, 2024 10: 00am DIZZINESS October 16, 2024 1:1 0pm Amb Documentation October 17, 2024 2:3 3pm 6 M FU October 18, 2024 1:2 6pm 5 M FU November 06, 2024 10:35 am PLACEMENT November 14, 2024 10:02 am GENTAMICIN November 14, 2024 11:54 am PICC draw-gentamycin level & additional labs November 15, 2024 10:45am GENTAMICIN November 16, 2024 7:52a m GENTAMICIN November 17, 2024 8:49a m wound November 17, 2024 10:15 am GENTAMICIN November 18, 2024 9:16a m PICC draw/drsg change November 20, 2024 10: 26am GENTAMICIN November 22, 2024 9:17a m wound November 24, 2024 7:27a m dizzy November 27, 2024 4:12p m Reason for Visit Admit Date Lymphedema August 02, 2024 9:52am Venous insufficiency (chronic) (peripher al) August 02, 2024 9:52am 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, limited to breakdown skin August 18, 2024 9:15am Venous stasis ulcer of left ankle limited to breakdown of skin August 18, 2024 9:15am Chronic hypoxemic respiratory failure Fe bruary 2024 9:15am COPD (chronic obstructive pulmonary dise ase) August 18, 2024 9:15am Debility August 18, 2024 9:15am Edema of both lower extremities August 18, 2024 9:15am Essential hypertension August 18 9:15am Hypothyroidism August 18, 2024 9:15am Lymphedema August 18, 2024 9:15am Morbid obesity with BMI of 45.0-49.9, ad ult August 18, 2024 9:15am DOLORES (obstructive sleep apnea) July 232024 9:15am Osteoarthritis August 18, 2024 9:15am Pulmonary hypertension August 18 9:15am Type 2 diabetes mellitus August 18, 2024 9:15am Venous insufficiency August 18, 2024 9:15am ATKINS (dyspnea on exertion) August 28 11:41am Essential hypertension August 28, 2024 11:41am Hyperlipidemia August 28, 2024 11: 41am Palpitations August 28, 2024 11: 41am 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, limited to breakdown skin September 15, 2024 9:30am Venous stasis ulcer of left ankle limited to breakdown of skin September 15, 2024 9:30am Chronic hypoxemic respiratory failure Ma [facility] 2024 9:30am COPD (chronic obstructive pulmonary dise ase) September 15, 2024 9:30am Debility September 15, 2024 9:3 0am Edema of both lower extremities September 152024 9:30am Essential hypertension September 15, 2024 9:30am Hypothyroidism September 15, 2024 9:3 0am Lymphedema September 15, 2024 9:3 0am Morbid obesity with BMI of 45.0-49.9, ad ult September 15, 2024 9:30am DOLORES (obstructive sleep apnea) August 9:30am Osteoarthritis September 15, 2024 9:3 0am Pulmonary hypertension September 15, 2024 9:30am Type 2 diabetes mellitus September 15 9:30am Venous insufficiency September 15, 2024 9: 30am Dizziness October 03, 2024 10: 44am Essential hypertension October 03, 2024 10:44am Hyperlipidemia October 03, 2024 10: 44am Palpitations October 03, 2024 10: 44am 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, limited to breakdown skin October 13, 2024 10:00am Venous stasis ulcer of left ankle limited to breakdown of skin October 13, 2024 10:00am Chronic hypoxemic respiratory failure Ap ril 2024 10:00am COPD (chronic obstructive pulmonary dise ase) October 13, 2024 10:00am Debility October 13, 2024 10: 00am Edema of both lower extremities October 132024 10:00am Essential hypertension October 13, 2024 10:00am Hypothyroidism October 13, 2024 10: 00am Lymphedema October 13, 2024 10: 00am Morbid obesity with BMI of 45.0-49.9, ad ult October 13, 2024 10:00am DOLORES (obstructive sleep apnea) September 10:00am Osteoarthritis October 13, 2024 10: 00am Pulmonary hypertension October 13, 2024 10:00am Type 2 diabetes mellitus October 13 10:00am Venous insufficiency October 13, 2024 10 :00am 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 October 18, 2024 1:26pm Morbid obesity with BMI of 45.0-49.9, ad ult October 18, 2024 1:26pm DOLORES (obstructive sleep apnea) September 1:26pm Pulmonary hypertension October 18, 2024 1:26pm Essential hypertension November 06, 2024 10 :35am Hypothyroidism November 06, 2024 10:35 am Insomnia November 06, 2024 10:35 am Cellulitis of left lower extremity October 212024 10:15am 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, limited to breakdown skin November 17, 2024 10:15am Venous stasis ulcer of left ankle limited to breakdown of skin November 17, 2024 10:15am Venous stasis ulcer of left calf with fa t layer exposed November 17, 2024 10:15am Venous stasis ulcer of right calf with f at layer exposed November 17, 2024 10:15am Venous ulcer with fat layer exposed November 17, 2024 10:15am Chronic hypoxemic respiratory failure Ma y 2024 10:15am COPD (chronic obstructive pulmonary dise ase) November 17, 2024 10:15am Debility November 17, 2024 10:15 am Edema of both lower extremities October 10:15am Essential hypertension November 17, 2024 10 :15am Hypothyroidism November 17, 2024 10:15 am Lymphedema November 17, 2024 10:15 am Morbid obesity with BMI of 45.0-49.9, ad ult November 17, 2024 10:15am DOLORES (obstructive sleep apnea) November 17, 2024 10:15am Osteoarthritis November 17, 2024 10:15 am Pulmonary hypertension November 17, 2024 10 :15am Type 2 diabetes mellitus November 17, 2024 10:15am Venous insufficiency November 17, 2024 10:1 5am Cellulitis of left lower extremity November 24, 2024 7:27am 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, limited to breakdown skin November 24, 2024 7:27am Venous stasis ulcer of left calf with fa t layer exposed November 24, 2024 7:27am Venous stasis ulcer of right calf with f at layer exposed November 24, 2024 7:27am Venous ulcer with fat layer exposed November 24, 2024 7:27am Chronic hypoxemic respiratory failure Ju 2024 7:27am COPD (chronic obstructive pulmonary dise ase) November 24, 2024 7:27am Debility November 24, 2024 7:27a m Edema of both lower extremities November 7:27am Essential hypertension November 24, 2024 7: 27am Hypothyroidism November 24, 2024 7:27a m Lymphedema November 24, 2024 7:27a m Morbid obesity with BMI of 45.0-49.9, ad ult November 24, 2024 7:27am DOLORES (obstructive sleep apnea) November 24, 2024 7:27am Osteoarthritis November 24, 2024 7:27a m Pulmonary hypertension November 24, 2024 7: 27am Type 2 diabetes mellitus November 24, 2024 7:27am Venous insufficiency November 24, 2024 7:27 am Chief Complaint Admit Date wound August 18, 2024 9:15am Chest and left arm pain, see NN. Oniel Bowens [facility] 2024 11:41am E ORDER August 28, 2024 1:0 7pm wound September 15, 2024 9:3 0am DYSPNEA September 22, 2024 7:03 am 6 M FU October 03, 2024 10: 44am wound October 13, 2024 10: 00am DIZZINESS October 16, 2024 1:1 0pm Amb Documentation October 17, 2024 2:3 3pm 6 M FU October 18, 2024 1:2 6pm 5 M FU November 06, 2024 10:35 am PLACEMENT November 14, 2024 10:02 am GENTAMICIN November 14, 2024 11:54 am PICC draw-gentamycin level & additional labs November 15, 2024 10:45am GENTAMICIN November 16, 2024 7:52a m GENTAMICIN November 17, 2024 8:49a m wound November 17, 2024 10:15 am GENTAMICIN November 18, 2024 9:16a m PICC draw/drsg change November 20, 2024 10: 26am GENTAMICIN November 22, 2024 9:17a m wound November 24, 2024 7:27a m dizzy November 27, 2024 4:12p m [facility] FOLLOW UP - INNER EAR INFECTION December 07, 2024 12:32pm Reason for Visit Admit Date 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, limited to breakdown skin August 18, 2024 9:15am Venous stasis ulcer of left ankle limited to breakdown of skin August 18, 2024 9:15am Chronic hypoxemic respiratory failure Fe bruary 2024 9:15am COPD (chronic obstructive pulmonary dise ase) August 18, 2024 9:15am Debility August 18, 2024 9:15am Edema of both lower extremities August 18, 2024 9:15am Essential hypertension August 18 9:15am Hypothyroidism August 18, 2024 9:15am Lymphedema August 18, 2024 9:15am Morbid obesity with BMI of 45.0-49.9, ad ult August 18, 2024 9:15am DOLORES (obstructive sleep apnea) July 232024 9:15am Osteoarthritis August 18, 2024 9:15am Pulmonary hypertension August 18 9:15am Type 2 diabetes mellitus August 18, 2024 9:15am Venous insufficiency August 18, 2024 9:15am ATKINS (dyspnea on exertion) August 28 11:41am Essential hypertension August 28, 2024 11:41am Hyperlipidemia August 28, 2024 11: 41am Palpitations August 28, 2024 11: 41am 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, limited to breakdown skin September 15, 2024 9:30am Venous stasis ulcer of left ankle limited to breakdown of skin September 15, 2024 9:30am Chronic hypoxemic respiratory failure Ma [facility] 2024 9:30am COPD (chronic obstructive pulmonary dise ase) September 15, 2024 9:30am Debility September 15, 2024 9:3 0am Edema of both lower extremities September 152024 9:30am Essential hypertension September 15, 2024 9:30am Hypothyroidism September 15, 2024 9:3 0am Lymphedema September 15, 2024 9:3 0am Morbid obesity with BMI of 45.0-49.9, ad ult September 15, 2024 9:30am DOLORES (obstructive sleep apnea) August 9:30am Osteoarthritis September 15, 2024 9:3 0am Pulmonary hypertension September 15, 2024 9:30am Type 2 diabetes mellitus September 15 9:30am Venous insufficiency September 15, 2024 9: 30am Dizziness October 03, 2024 10: 44am Essential hypertension October 03, 2024 10:44am Hyperlipidemia October 03, 2024 10: 44am Palpitations October 03, 2024 10: 44am 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, limited to breakdown skin October 13, 2024 10:00am Venous stasis ulcer of left ankle limited to breakdown of skin October 13, 2024 10:00am Chronic hypoxemic respiratory failure Ap ril 2024 10:00am COPD (chronic obstructive pulmonary dise ase) October 13, 2024 10:00am Debility October 13, 2024 10: 00am Edema of both lower extremities October 132024 10:00am Essential hypertension October 13, 2024 10:00am Hypothyroidism October 13, 2024 10: 00am Lymphedema October 13, 2024 10: 00am Morbid obesity with BMI of 45.0-49.9, ad ult October 13, 2024 10:00am DOLORES (obstructive sleep apnea) September 10:00am Osteoarthritis October 13, 2024 10: 00am Pulmonary hypertension October 13, 2024 10:00am Type 2 diabetes mellitus October 13 10:00am Venous insufficiency October 13, 2024 10 :00am 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 October 18, 2024 1:26pm Morbid obesity with BMI of 45.0-49.9, ad ult October 18, 2024 1:26pm DOLORES (obstructive sleep apnea) September 1:26pm Pulmonary hypertension October 18, 2024 1:26pm Essential hypertension November 06, 2024 10 :35am Hypothyroidism November 06, 2024 10:35 am Insomnia November 06, 2024 10:35 am Cellulitis of left lower extremity October 212024 10:15am 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, limited to breakdown skin November 17, 2024 10:15am Venous stasis ulcer of left ankle limited to breakdown of skin November 17, 2024 10:15am Venous stasis ulcer of left calf with fa t layer exposed November 17, 2024 10:15am Venous stasis ulcer of right calf with f at layer exposed November 17, 2024 10:15am Venous ulcer with fat layer exposed November 17, 2024 10:15am Chronic hypoxemic respiratory failure Ma y 2024 10:15am COPD (chronic obstructive pulmonary dise ase) November 17, 2024 10:15am Debility November 17, 2024 10:15 am Edema of both lower extremities October 10:15am Essential hypertension November 17, 2024 10 :15am Hypothyroidism November 17, 2024 10:15 am Lymphedema November 17, 2024 10:15 am Morbid obesity with BMI of 45.0-49.9, ad ult November 17, 2024 10:15am DOLORES (obstructive sleep apnea) November 17, 2024 10:15am Osteoarthritis November 17, 2024 10:15 am Pulmonary hypertension November 17, 2024 10 :15am Type 2 diabetes mellitus November 17, 2024 10:15am Venous insufficiency November 17, 2024 10:1 5am Cellulitis of left lower extremity November 24, 2024 7:27am 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, limited to breakdown skin November 24, 2024 7:27am Venous stasis ulcer of left calf with fa t layer exposed November 24, 2024 7:27am Venous stasis ulcer of right calf with f at layer exposed November 24, 2024 7:27am Venous ulcer with fat layer exposed November 24, 2024 7:27am Chronic hypoxemic respiratory failure Ju 2024 7:27am COPD (chronic obstructive pulmonary dise ase) November 24, 2024 7:27am Debility November 24, 2024 7:27a m Edema of both lower extremities November 7:27am Essential hypertension November 24, 2024 7: 27am Hypothyroidism November 24, 2024 7:27a m Lymphedema November 24, 2024 7:27a m Morbid obesity with BMI of 45.0-49.9, ad ult November 24, 2024 7:27am DOLORES (obstructive sleep apnea) November 24, 2024 7:27am Osteoarthritis November 24, 2024 7:27a m Pulmonary hypertension November 24, 2024 7: 27am Type 2 diabetes mellitus November 24, 2024 7:27am Venous insufficiency November 24, 2024 7:27 am Chief Complaint Admit Date Chest and left arm pain, see NN. Oniel Bowens [facility] 2024 11:41am E ORDER August 28, 2024 1:0 7pm wound September 15, 2024 9:3 0am DYSPNEA September 22, 2024 7:03 am 6 M FU October 03, 2024 10: 44am wound October 13, 2024 10: 00am DIZZINESS October 16, 2024 1:1 0pm Amb Documentation October 17, 2024 2:3 3pm 6 M FU October 18, 2024 1:2 6pm 5 M FU November 06, 2024 10:35 am PLACEMENT November 14, 2024 10:02 am GENTAMICIN November 14, 2024 11:54 am PICC draw-gentamycin level & additional labs November 15, 2024 10:45am GENTAMICIN November 16, 2024 7:52a m GENTAMICIN November 17, 2024 8:49a m wound November 17, 2024 10:15 am GENTAMICIN November 18, 2024 9:16a m PICC draw/drsg change November 20, 2024 10: 26am GENTAMICIN November 22, 2024 9:17a m dizzy November 27, 2024 4:12p m [facility] FOLLOW UP - INNER EAR INFECTION December 07, 2024 12:32pm wound December 15, 2024 10:1 5am Reason for Visit Admit Date ATKINS (dyspnea on exertion) August 28 11:41am Essential hypertension August 28, 2024 11:41am Hyperlipidemia August 28, 2024 11: 41am Palpitations August 28, 2024 11: 41am 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, limited to breakdown skin September 15, 2024 9:30am Venous stasis ulcer of left ankle limited to breakdown of skin September 15, 2024 9:30am Chronic hypoxemic respiratory failure [facility] 2024 9:30am COPD (chronic obstructive pulmonary dise ase) September 15, 2024 9:30am Debility September 15, 2024 9:3 0am Edema of both lower extremities September [id number] 9:30am Essential hypertension September 15, 2024 9:30am Hypothyroidism September 15, 2024 9:3 0am Lymphedema September 15, 2024 9:3 0am Morbid obesity with BMI of 45.0-49.9, ad ult September 15, 2024 9:30am DOLORES (obstructive sleep apnea) August 9:30am Osteoarthritis September 15, 2024 9:3 0am Pulmonary hypertension September 15, 2024 9:30am Type 2 diabetes mellitus September 15 9:30am Venous insufficiency September 15, 2024 9: 30am Dizziness October 03, 2024 10: 44am Essential hypertension October 03, 2024 10:44am Hyperlipidemia October 03, 2024 10: 44am Palpitations October 03, 2024 10: 44am 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, limited to breakdown skin October 13, 2024 10:00am Venous stasis ulcer of left ankle limited to breakdown of skin October 13, 2024 10:00am Chronic hypoxemic respiratory failure Ap ril 2024 10:00am COPD (chronic obstructive pulmonary dise ase) October 13, 2024 10:00am Debility October 13, 2024 10: 00am Edema of both lower extremities October 132024 10:00am Essential hypertension October 13, 2024 10:00am Hypothyroidism October 13, 2024 10: 00am Lymphedema October 13, 2024 10: 00am Morbid obesity with BMI of 45.0-49.9, ad ult October 13, 2024 10:00am DOLORES (obstructive sleep apnea) September 10:00am Osteoarthritis October 13, 2024 10: 00am Pulmonary hypertension October 13, 2024 10:00am Type 2 diabetes mellitus October 13 10:00am Venous insufficiency October 13, 2024 10 :00am 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 October 18, 2024 1:26pm Morbid obesity with BMI of 45.0-49.9, ad ult October 18, 2024 1:26pm DOLORES (obstructive sleep apnea) September 1:26pm Pulmonary hypertension October 18, 2024 1:26pm Essential hypertension November 06, 2024 10 :35am Hypothyroidism November 06, 2024 10:35 am Insomnia November 06, 2024 10:35 am Cellulitis of left lower extremity October 212024 10:15am 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, limited to breakdown skin November 17, 2024 10:15am Venous stasis ulcer of left ankle limited to breakdown of skin November 17, 2024 10:15am Venous stasis ulcer of left calf with fa t layer exposed November 17, 2024 10:15am Venous stasis ulcer of right calf with f at layer exposed November 17, 2024 10:15am Venous ulcer with fat layer exposed November 17, 2024 10:15am Chronic hypoxemic respiratory failure Ma y 2024 10:15am COPD (chronic obstructive pulmonary dise ase) November 17, 2024 10:15am Debility November 17, 2024 10:15 am Edema of both lower extremities October 10:15am Essential hypertension November 17, 2024 10 :15am Hypothyroidism November 17, 2024 10:15 am Lymphedema November 17, 2024 10:15 am Morbid obesity with BMI of 45.0-49.9, ad ult November 17, 2024 10:15am DOLORES (obstructive sleep apnea) November 17, 2024 10:15am Osteoarthritis November 17, 2024 10:15 am Pulmonary hypertension November 17, 2024 10 :15am Type 2 diabetes mellitus November 17, 2024 10:15am Venous insufficiency November 17, 2024 10:1 5am Rhinosinusitis December 07, 2024 12:3 2pm Vertigo December 07, 2024 12:3 2pm Cellulitis of left lower extremity December 15, 2024 10:15am 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, limited to breakdown skin December 15, 2024 10:15am Venous stasis ulcer of left calf with fa t layer exposed December 15, 2024 10:15am Venous stasis ulcer of right calf with f at layer exposed December 15, 2024 10:15am Venous ulcer with fat layer exposed December 15, 2024 10:15am Chronic hypoxemic respiratory failure Ju ne 2024 10:15am COPD (chronic obstructive pulmonary dise ase) December 15, 2024 10:15am Debility December 15, 2024 10:1 5am Edema of both lower extremities November 10:15am Essential hypertension December 15, 2024 1 0:15am Hypothyroidism December 15, 2024 10:1 5am Lymphedema December 15, 2024 10:1 5am Morbid obesity with BMI of 45.0-49.9, ad ult December 15, 2024 10:15am DOLORES (obstructive sleep apnea) December 15, 2024 10:15am Osteoarthritis December 15, 2024 10:1 5am Pulmonary hypertension December 15, 2024 1 0:15am Type 2 diabetes mellitus December 15, 2024 10:15am Venous insufficiency December 15, 2024 10: 15am Chief Complaint Admit Date DYSPNEA September 22, 2024 7:03 am 6 M FU October 03, 2024 10: 44am wound October 13, 2024 10: 00am DIZZINESS October 16, 2024 1:1 0pm Amb Documentation October 17, 2024 2:3 3pm 6 M FU October 18, 2024 1:2 6pm 5 M FU November 06, 2024 10:35 am PLACEMENT November 14, 2024 10:02 am GENTAMICIN November 14, 2024 11:54 am PICC draw-gentamycin level & additional labs November 15, 2024 10:45am GENTAMICIN November 16, 2024 7:52a m GENTAMICIN November 17, 2024 8:49a m wound November 17, 2024 10:15 am GENTAMICIN November 18, 2024 9:16a m PICC draw/drsg change November 20, 2024 10: 26am GENTAMICIN November 22, 2024 9:17a m dizzy November 27, 2024 4:12p m [facility] FOLLOW UP - INNER EAR INFECTION December 07, 2024 12:32pm wound December 15, 2024 10:1 5am wound January 12, 2025 10:4 5am Reason for Visit Admit Date Dizziness October 03, 2024 10: 44am Essential hypertension October 03, 2024 10:44am Hyperlipidemia October 03, 2024 10: 44am Palpitations October 03, 2024 10: 44am 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, limited to breakdown skin October 13, 2024 10:00am Venous stasis ulcer of left ankle limited to breakdown of skin October 13, 2024 10:00am Chronic hypoxemic respiratory failure Ap ril 2024 10:00am COPD (chronic obstructive pulmonary dise ase) October 13, 2024 10:00am Debility October 13, 2024 10: 00am Edema of both lower extremities October 132024 10:00am Essential hypertension October 13, 2024 10:00am Hypothyroidism October 13, 2024 10: 00am Lymphedema October 13, 2024 10: 00am Morbid obesity with BMI of 45.0-49.9, ad ult October 13, 2024 10:00am DOLORES (obstructive sleep apnea) September 10:00am Osteoarthritis October 13, 2024 10: 00am Pulmonary hypertension October 13, 2024 10:00am Type 2 diabetes mellitus October 13 10:00am Venous insufficiency October 13, 2024 10 :00am 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 October 18, 2024 1:26pm Morbid obesity with BMI of 45.0-49.9, ad ult October 18, 2024 1:26pm DOLORES (obstructive sleep apnea) September 1:26pm Pulmonary hypertension October 18, 2024 1:26pm Essential hypertension November 06, 2024 10 :35am Hypothyroidism November 06, 2024 10:35 am Insomnia November 06, 2024 10:35 am Cellulitis of left lower extremity October 212024 10:15am 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, limited to breakdown skin November 17, 2024 10:15am Venous stasis ulcer of left ankle limited to breakdown of skin November 17, 2024 10:15am Venous stasis ulcer of left calf with fa t layer exposed November 17, 2024 10:15am Venous stasis ulcer of right calf with f at layer exposed November 17, 2024 10:15am Venous ulcer with fat layer exposed November 17, 2024 10:15am Chronic hypoxemic respiratory failure Ma y 2024 10:15am COPD (chronic obstructive pulmonary dise ase) November 17, 2024 10:15am Debility November 17, 2024 10:15 am Edema of both lower extremities October 10:15am Essential hypertension November 17, 2024 10 :15am Hypothyroidism November 17, 2024 10:15 am Lymphedema November 17, 2024 10:15 am Morbid obesity with BMI of 45.0-49.9, ad ult November 17, 2024 10:15am DOLORES (obstructive sleep apnea) November 17, 2024 10:15am Osteoarthritis November 17, 2024 10:15 am Pulmonary hypertension November 17, 2024 10 :15am Type 2 diabetes mellitus November 17, 2024 10:15am Venous insufficiency November 17, 2024 10:1 5am Rhinosinusitis December 07, 2024 12:3 2pm Vertigo December 07, 2024 12:3 2pm Cellulitis of left lower extremity December 15, 2024 10:15am 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, limited to breakdown skin December 15, 2024 10:15am Venous stasis ulcer of left calf with fa t layer exposed December 15, 2024 10:15am Venous stasis ulcer of right calf with f at layer exposed December 15, 2024 10:15am Venous ulcer with fat layer exposed December 15, 2024 10:15am Chronic hypoxemic respiratory failure Ju ne 2024 10:15am COPD (chronic obstructive pulmonary dise ase) December 15, 2024 10:15am Debility December 15, 2024 10:1 5am Edema of both lower extremities November 10:15am Essential hypertension December 15, 2024 1 0:15am Hypothyroidism December 15, 2024 10:1 5am Lymphedema December 15, 2024 10:1 5am Morbid obesity with BMI of 45.0-49.9, ad ult December 15, 2024 10:15am DOLORES (obstructive sleep apnea) December 15, 2024 10:15am Osteoarthritis December 15, 2024 10:1 5am Pulmonary hypertension December 15, 2024 1 0:15am Type 2 diabetes mellitus December 15, 2024 10:15am Venous insufficiency December 15, 2024 10: 15am Cellulitis of left lower extremity January 12, 2025 10:45am 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, limited to breakdown skin January 12, 2025 10:45am Venous stasis ulcer of left calf with fa t layer exposed January 12, 2025 10:45am Venous stasis ulcer of right calf with f at layer exposed January 12, 2025 10:45am Venous ulcer with fat layer exposed January 12, 2025 10:45am Chronic hypoxemic respiratory failure Ju 2024 10:45am COPD (chronic obstructive pulmonary dise ase) January 12, 2025 10:45am Debility January 12, 2025 10:4 5am Edema of both lower extremities December 10:45am Essential hypertension January 12, 2025 1 0:45am Hypothyroidism January 12, 2025 10:4 5am Lymphedema January 12, 2025 10:4 5am Morbid obesity with BMI of 45.0-49.9, ad ult January 12, 2025 10:45am DOLORES (obstructive sleep apnea) January 12, 2025 10:45am Osteoarthritis January 12, 2025 10:4 5am Pulmonary hypertension January 12, 2025 1 0:45am Type 2 diabetes mellitus January 12, 2025 10:45am Venous insufficiency January 12, 2025 10: 45am Chief Complaint Admit Date DYSPNEA September 22, 2024 7:03 am 6 M FU October 03, 2024 10: 44am wound October 13, 2024 10: 00am DIZZINESS October 16, 2024 1:1 0pm Amb Documentation October 17, 2024 2:3 3pm 6 M FU October 18, 2024 1:2 6pm 5 M FU November 06, 2024 10:35 am PLACEMENT November 14, 2024 10:02 am GENTAMICIN November 14, 2024 11:54 am PICC draw-gentamycin level & additional labs November 15, 2024 10:45am GENTAMICIN November 16, 2024 7:52a m GENTAMICIN November 17, 2024 8:49a m wound November 17, 2024 10:15 am GENTAMICIN November 18, 2024 9:16a m PICC draw/drsg change November 20, 2024 10: 26am GENTAMICIN November 22, 2024 9:17a m dizzy November 27, 2024 4:12p m [facility] FOLLOW UP - INNER EAR INFECTION December 07, 2024 12:32pm wound December 15, 2024 10:1 5am wound January 12, 2025 10:4 5am wound January 19, 2025 10: 13am Chief Complaint Admit Date DYSPNEA September 22, 2024 7:03 am 6 M FU October 03, 2024 10: 44am wound October 13, 2024 10: 00am DIZZINESS October 16, 2024 1:1 0pm Amb Documentation October 17, 2024 2:3 3pm 6 M FU October 18, 2024 1:2 6pm 5 M FU November 06, 2024 10:35 am PLACEMENT November 14, 2024 10:02 am GENTAMICIN November 14, 2024 11:54 am PICC draw-gentamycin level & additional labs November 15, 2024 10:45am GENTAMICIN November 16, 2024 7:52a m GENTAMICIN November 17, 2024 8:49a m wound November 17, 2024 10:15 am GENTAMICIN November 18, 2024 9:16a m PICC draw/drsg change November 20, 2024 10: 26am GENTAMICIN November 22, 2024 9:17a m dizzy November 27, 2024 4:12p m [facility] FOLLOW UP - INNER EAR INFECTION December 07, 2024 12:32pm wound December 15, 2024 10:1 5am wound January 12, 2025 10:4 5am wound January 19, 2025 10: 13am ACUTE DIZZINESS January 19, 2025 12: 51pm Reason for Visit Admit Date Dizziness October 03, 2024 10: 44am Essential hypertension October 03, 2024 10:44am Hyperlipidemia October 03, 2024 10: 44am Palpitations October 03, 2024 10: 44am 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, limited to breakdown skin October 13, 2024 10:00am Venous stasis ulcer of left ankle limited to breakdown of skin October 13, 2024 10:00am Chronic hypoxemic respiratory failure Ap ril 2024 10:00am COPD (chronic obstructive pulmonary dise ase) October 13, 2024 10:00am Debility October 13, 2024 10: 00am Edema of both lower extremities October 132024 10:00am Essential hypertension October 13, 2024 10:00am Hypothyroidism October 13, 2024 10: 00am Lymphedema October 13, 2024 10: 00am Morbid obesity with BMI of 45.0-49.9, ad ult October 13, 2024 10:00am DOLORES (obstructive sleep apnea) September 10:00am Osteoarthritis October 13, 2024 10: 00am Pulmonary hypertension October 13, 2024 10:00am Type 2 diabetes mellitus October 13 10:00am Venous insufficiency October 13, 2024 10 :00am 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 October 18, 2024 1:26pm Morbid obesity with BMI of 45.0-49.9, ad ult October 18, 2024 1:26pm DOLORES (obstructive sleep apnea) September 1:26pm Pulmonary hypertension October 18, 2024 1:26pm Essential hypertension November 06, 2024 10 :35am Hypothyroidism November 06, 2024 10:35 am Insomnia November 06, 2024 10:35 am Cellulitis of left lower extremity October 212024 10:15am 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, limited to breakdown skin November 17, 2024 10:15am Venous stasis ulcer of left ankle limited to breakdown of skin November 17, 2024 10:15am Venous stasis ulcer of left calf with fa t layer exposed November 17, 2024 10:15am Venous stasis ulcer of right calf with f at layer exposed November 17, 2024 10:15am Venous ulcer with fat layer exposed November 17, 2024 10:15am Chronic hypoxemic respiratory failure Ma y 2024 10:15am COPD (chronic obstructive pulmonary dise ase) November 17, 2024 10:15am Debility November 17, 2024 10:15 am Edema of both lower extremities October 10:15am Essential hypertension November 17, 2024 10 :15am Hypothyroidism November 17, 2024 10:15 am Lymphedema November 17, 2024 10:15 am Morbid obesity with BMI of 45.0-49.9, ad ult November 17, 2024 10:15am DOLORES (obstructive sleep apnea) November 17, 2024 10:15am Osteoarthritis November 17, 2024 10:15 am Pulmonary hypertension November 17, 2024 10 :15am Type 2 diabetes mellitus November 17, 2024 10:15am Venous insufficiency November 17, 2024 10:1 5am Rhinosinusitis December 07, 2024 12:3 2pm Vertigo December 07, 2024 12:3 2pm Cellulitis of left lower extremity December 15, 2024 10:15am 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, limited to breakdown skin December 15, 2024 10:15am Venous stasis ulcer of left calf with fa t layer exposed December 15, 2024 10:15am Venous stasis ulcer of right calf with f at layer exposed December 15, 2024 10:15am Venous ulcer with fat layer exposed December 15, 2024 10:15am Chronic hypoxemic respiratory failure Ju ne 2024 10:15am COPD (chronic obstructive pulmonary dise ase) December 15, 2024 10:15am Debility December 15, 2024 10:1 5am Edema of both lower extremities November 10:15am Essential hypertension December 15, 2024 1 0:15am Hypothyroidism December 15, 2024 10:1 5am Lymphedema December 15, 2024 10:1 5am Morbid obesity with BMI of 45.0-49.9, ad ult December 15, 2024 10:15am DOLORES (obstructive sleep apnea) December 15, 2024 10:15am Osteoarthritis December 15, 2024 10:1 5am Pulmonary hypertension December 15, 2024 1 0:15am Type 2 diabetes mellitus December 15, 2024 10:15am Venous insufficiency December 15, 2024 10: 15am Cellulitis of left lower extremity January 12, 2025 10:45am 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, limited to breakdown skin January 12, 2025 10:45am Venous stasis ulcer of left calf with fa t layer exposed January 12, 2025 10:45am Venous stasis ulcer of right calf with f at layer exposed January 12, 2025 10:45am Venous ulcer with fat layer exposed January 12, 2025 10:45am Chronic hypoxemic respiratory failure Ju 2024 10:45am COPD (chronic obstructive pulmonary dise ase) January 12, 2025 10:45am Debility January 12, 2025 10:4 5am Edema of both lower extremities December 10:45am Essential hypertension January 12, 2025 1 0:45am Hypothyroidism January 12, 2025 10:4 5am Lymphedema January 12, 2025 10:4 5am Morbid obesity with BMI of 45.0-49.9, ad ult January 12, 2025 10:45am DOLORES (obstructive sleep apnea) January 12, 2025 10:45am Osteoarthritis January 12, 2025 10:4 5am Pulmonary hypertension January 12, 2025 1 0:45am Type 2 diabetes mellitus January 12, 2025 10:45am Venous insufficiency January 12, 2025 10: 45am Dizziness January 19, 2025 12: 51pm Vertigo January 19, 2025 12: 51pm Chief Complaint Admit Date 6 M FU October 03, 2024 10: 44am wound October 13, 2024 10: 00am DIZZINESS Joan 28th, 2025 1:1 0pm Amb Documentation October 17, 2024 2:3 3pm 6 M FU October 18, 2024 1:2 6pm 5 M FU November 06, 2024 10:35 am PLACEMENT November 14, 2024 10:02 am GENTAMICIN November 14, 2024 11:54 am PICC draw-gentamycin level & additional labs November 15, 2024 10:45am GENTAMICIN November 16, 2024 7:52a m GENTAMICIN November 17, 2024 8:49a m wound November 17, 2024 10:15 am GENTAMICIN November 18, 2024 9:16a m PICC draw/drsg change November 20, 2024 10: 26am GENTAMICIN November 22, 2024 9:17a m dizzy November 27, 2024 4:12p m [facility] FOLLOW UP - INNER EAR INFECTION December 07, 2024 12:32pm wound December 15, 2024 10:1 5am wound January 12, 2025 10:4 5am wound January 19, 2025 10: 13am ACUTE DIZZINESS January 19, 2025 12: 51pm Reason for Visit Admit Date Dizziness October 03, 2024 10: 44am Essential hypertension October 03, 2024 10:44am Hyperlipidemia October 03, 2024 10: 44am Palpitations October 03, 2024 10: 44am 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, limited to breakdown skin October 13, 2024 10:00am Venous stasis ulcer of left ankle limited to breakdown of skin October 13, 2024 10:00am Chronic hypoxemic respiratory failure Ap 2024 10:00am COPD (chronic obstructive pulmonary dise ase) October 13, 2024 10:00am Debility October 13, 2024 10: 00am Edema of both lower extremities October 132024 10:00am Essential hypertension October 13, 2024 10:00am Hypothyroidism October 13, 2024 10: 00am Lymphedema October 13, 2024 10: 00am Morbid obesity with BMI of 45.0-49.9, ad ult October 13, 2024 10:00am DOLORES (obstructive sleep apnea) September 10:00am Osteoarthritis October 13, 2024 10: 00am Pulmonary hypertension October 13, 2024 10:00am Type 2 diabetes mellitus October 13 10:00am Venous insufficiency October 13, 2024 10 :00am 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 October 18, 2024 1:26pm Morbid obesity with BMI of 45.0-49.9, ad ult October 18, 2024 1:26pm DOLORES (obstructive sleep apnea) September 1:26pm Pulmonary hypertension October 18, 2024 1:26pm Essential hypertension November 06, 2024 10 :35am Hypothyroidism November 06, 2024 10:35 am Insomnia November 06, 2024 10:35 am Cellulitis of left lower extremity October 212024 10:15am 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, limited to breakdown skin November 17, 2024 10:15am Venous stasis ulcer of left ankle limited to breakdown of skin November 17, 2024 10:15am Venous stasis ulcer of left calf with fa t layer exposed November 17, 2024 10:15am Venous stasis ulcer of right calf with f at layer exposed November 17, 2024 10:15am Venous ulcer with fat layer exposed November 17, 2024 10:15am Chronic hypoxemic respiratory failure Ma y 2024 10:15am COPD (chronic obstructive pulmonary dise ase) November 17, 2024 10:15am Debility November 17, 2024 10:15 am Edema of both lower extremities October 10:15am Essential hypertension November 17, 2024 10 :15am Hypothyroidism November 17, 2024 10:15 am Lymphedema November 17, 2024 10:15 am Morbid obesity with BMI of 45.0-49.9, ad ult November 17, 2024 10:15am DOLORES (obstructive sleep apnea) November 17, 2024 10:15am Osteoarthritis November 17, 2024 10:15 am Pulmonary hypertension November 17, 2024 10 :15am Type 2 diabetes mellitus November 17, 2024 10:15am Venous insufficiency November 17, 2024 10:1 5am Rhinosinusitis December 07, 2024 12:3 2pm Vertigo December 07, 2024 12:3 2pm Cellulitis of left lower extremity December 15, 2024 10:15am 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, limited to breakdown skin December 15, 2024 10:15am Venous stasis ulcer of left calf with fa t layer exposed December 15, 2024 10:15am Venous stasis ulcer of right calf with f at layer exposed December 15, 2024 10:15am Venous ulcer with fat layer exposed December 15, 2024 10:15am Chronic hypoxemic respiratory failure Ju ne 2024 10:15am COPD (chronic obstructive pulmonary dise ase) December 15, 2024 10:15am Debility December 15, 2024 10:1 5am Edema of both lower extremities November 10:15am Essential hypertension December 15, 2024 1 0:15am Hypothyroidism December 15, 2024 10:1 5am Lymphedema December 15, 2024 10:1 5am Morbid obesity with BMI of 45.0-49.9, ad ult December 15, 2024 10:15am DOLORES (obstructive sleep apnea) December 15, 2024 10:15am Osteoarthritis December 15, 2024 10:1 5am Pulmonary hypertension December 15, 2024 1 0:15am Type 2 diabetes mellitus December 15, 2024 10:15am Venous insufficiency December 15, 2024 10: 15am Cellulitis of left lower extremity January 12, 2025 10:45am 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, limited to breakdown skin January 12, 2025 10:45am Venous stasis ulcer of left calf with fa t layer exposed January 12, 2025 10:45am Venous stasis ulcer of right calf with f at layer exposed January 12, 2025 10:45am Venous ulcer with fat layer exposed January 12, 2025 10:45am Chronic hypoxemic respiratory failure Ju 2024 10:45am COPD (chronic obstructive pulmonary dise ase) January 12, 2025 10:45am Debility January 12, 2025 10:4 5am Edema of both lower extremities December 10:45am Essential hypertension January 12, 2025 1 0:45am Hypothyroidism January 12, 2025 10:4 5am Lymphedema January 12, 2025 10:4 5am Morbid obesity with BMI of 45.0-49.9, ad ult January 12, 2025 10:45am DOLORES (obstructive sleep apnea) January 12, 2025 10:45am Osteoarthritis January 12, 2025 10:4 5am Pulmonary hypertension January 12, 2025 1 0:45am Type 2 diabetes mellitus January 12, 2025 10:45am Venous insufficiency January 12, 2025 10: 45am Cellulitis of left lower extremity Augus t 2024 10:13am 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, limited to breakdown skin January 19, 2025 10:13am Venous stasis ulcer of left calf with fa t layer exposed January 19, 2025 10:13am Venous stasis ulcer of right calf with f at layer exposed January 19, 2025 10:13am Venous ulcer with fat layer exposed Janu st 2024 10:13am Chronic hypoxemic respiratory failure Au 2024 10:13am COPD (chronic obstructive pulmonary dise ase) January 19, 2025 10:13am Debility January 19, 2025 10: 13am Edema of both lower extremities January 192024 10:13am Essential hypertension January 19, 2025 10:13am Hypothyroidism January 19, 2025 10: 13am Lymphedema January 19, 2025 10: 13am Morbid obesity with BMI of 45.0-49.9, ad ult January 19, 2025 10:13am DOLORES (obstructive sleep apnea) January 10:13am Osteoarthritis January 19, 2025 10: 13am Pulmonary hypertension January 19, 2025 10:13am Type 2 diabetes mellitus January 19 10:13am Venous insufficiency January 19, 2025 10 :13am Dizziness January 19, 2025 12: 51pm Iron deficiency January 19, 2025 12: 51pm Vitamin D deficiency January 19, 2025 12 :51pm Chief Complaint Admit Date wound October 13, 2024 10: 00am DIZZINESS October 16, 2024 1:1 0pm Amb Documentation October 17, 2024 2:3 3pm 6 M FU October 18, 2024 1:2 6pm 5 M FU November 06, 2024 10:35 am PLACEMENT November 14, 2024 10:02 am GENTAMICIN November 14, 2024 11:54 am PICC draw-gentamycin level & additional labs November 15, 2024 10:45am GENTAMICIN November 16, 2024 7:52a m GENTAMICIN November 17, 2024 8:49a m wound November 17, 2024 10:15 am GENTAMICIN November 18, 2024 9:16a m PICC draw/drsg change November 20, 2024 10: 26am GENTAMICIN November 22, 2024 9:17a m dizzy November 27, 2024 4:12p m [facility] FOLLOW UP - INNER EAR INFECTION December 07, 2024 12:32pm wound December 15, 2024 10:1 5am wound January 12, 2025 10:4 5am wound January 19, 2025 10: 13am ACUTE DIZZINESS January 19, 2025 12: 51pm 3 m fu February 07, 2025 1: 24pm Reason for Visit Admit Date 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, limited to breakdown skin October 13, 2024 10:00am Venous stasis ulcer of left ankle limited to breakdown of skin October 13, 2024 10:00am Chronic hypoxemic respiratory failure Ap 2024 10:00am COPD (chronic obstructive pulmonary dise ase) October 13, 2024 10:00am Debility October 13, 2024 10: 00am Edema of both lower extremities October 132024 10:00am Essential hypertension October 13, 2024 10:00am Hypothyroidism October 13, 2024 10: 00am Lymphedema October 13, 2024 10: 00am Morbid obesity with BMI of 45.0-49.9, ad ult October 13, 2024 10:00am DOLORES (obstructive sleep apnea) September 10:00am Osteoarthritis October 13, 2024 10: 00am Pulmonary hypertension October 13, 2024 10:00am Type 2 diabetes mellitus October 13 10:00am Venous insufficiency October 13, 2024 10 :00am 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 October 18, 2024 1:26pm Morbid obesity with BMI of 45.0-49.9, ad ult October 18, 2024 1:26pm DOLORES (obstructive sleep apnea) September 1:26pm Pulmonary hypertension October 18, 2024 1:26pm Essential hypertension November 06, 2024 10 :35am Hypothyroidism November 06, 2024 10:35 am Insomnia November 06, 2024 10:35 am Cellulitis of left lower extremity October [id number] 10:15am 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, limited to breakdown skin November 17, 2024 10:15am Venous stasis ulcer of left ankle limited to breakdown of skin November 17, 2024 10:15am Venous stasis ulcer of left calf with fa t layer exposed November 17, 2024 10:15am Venous stasis ulcer of right calf with f at layer exposed November 17, 2024 10:15am Venous ulcer with fat layer exposed November 17, 2024 10:15am Chronic hypoxemic respiratory failure Ma y 2024 10:15am COPD (chronic obstructive pulmonary dise ase) November 17, 2024 10:15am Debility November 17, 2024 10:15 am Edema of both lower extremities October 10:15am Essential hypertension November 17, 2024 10 :15am Hypothyroidism November 17, 2024 10:15 am Lymphedema November 17, 2024 10:15 am Morbid obesity with BMI of 45.0-49.9, ad ult November 17, 2024 10:15am DOLORES (obstructive sleep apnea) November 17, 2024 10:15am Osteoarthritis November 17, 2024 10:15 am Pulmonary hypertension November 17, 2024 10 :15am Type 2 diabetes mellitus November 17, 2024 10:15am Venous insufficiency November 17, 2024 10:1 5am Rhinosinusitis December 07, 2024 12:3 2pm Vertigo December 07, 2024 12:3 2pm Cellulitis of left lower extremity December 15, 2024 10:15am 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, limited to breakdown skin December 15, 2024 10:15am Venous stasis ulcer of left calf with fa t layer exposed December 15, 2024 10:15am Venous stasis ulcer of right calf with f at layer exposed December 15, 2024 10:15am Venous ulcer with fat layer exposed December 15, 2024 10:15am Chronic hypoxemic respiratory failure Ju ne 2024 10:15am COPD (chronic obstructive pulmonary dise ase) December 15, 2024 10:15am Debility December 15, 2024 10:1 5am Edema of both lower extremities November 10:15am Essential hypertension December 15, 2024 1 0:15am Hypothyroidism December 15, 2024 10:1 5am Lymphedema December 15, 2024 10:1 5am Morbid obesity with BMI of 45.0-49.9, ad ult December 15, 2024 10:15am DOLORES (obstructive sleep apnea) December 15, 2024 10:15am Osteoarthritis December 15, 2024 10:1 5am Pulmonary hypertension December 15, 2024 1 0:15am Type 2 diabetes mellitus December 15, 2024 10:15am Venous insufficiency December 15, 2024 10: 15am Cellulitis of left lower extremity January 12, 2025 10:45am 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, limited to breakdown skin January 12, 2025 10:45am Venous stasis ulcer of left calf with fa t layer exposed January 12, 2025 10:45am Venous stasis ulcer of right calf with f at layer exposed January 12, 2025 10:45am Venous ulcer with fat layer exposed January 12, 2025 10:45am Chronic hypoxemic respiratory failure Ju 2024 10:45am COPD (chronic obstructive pulmonary dise ase) January 12, 2025 10:45am Debility January 12, 2025 10:4 5am Edema of both lower extremities December 10:45am Essential hypertension January 12, 2025 1 0:45am Hypothyroidism January 12, 2025 10:4 5am Lymphedema January 12, 2025 10:4 5am Morbid obesity with BMI of 45.0-49.9, ad ult January 12, 2025 10:45am DOLORES (obstructive sleep apnea) January 12, 2025 10:45am Osteoarthritis January 12, 2025 10:4 5am Pulmonary hypertension January 12, 2025 1 0:45am Type 2 diabetes mellitus January 12, 2025 10:45am Venous insufficiency January 12, 2025 10: 45am Cellulitis of left lower extremity 2024 10:13am 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, limited to breakdown skin January 19, 2025 10:13am Venous stasis ulcer of left calf with fa t layer exposed January 19, 2025 10:13am Venous stasis ulcer of right calf with f at layer exposed January 19, 2025 10:13am Venous ulcer with fat layer exposed 2024 10:13am Chronic hypoxemic respiratory failure Au iraida 2024 10:13am COPD (chronic obstructive pulmonary dise ase) January 19, 2025 10:13am Debility January 19, 2025 10: 13am Edema of both lower extremities [place] 1 st, 2025 10:13am Essential hypertension January 19, 2025 10:13am Hypothyroidism January 19, 2025 10: 13am Lymphedema January 19, 2025 10: 13am Morbid obesity with BMI of 45.0-49.9, ad ult January 19, 2025 10:13am DOLORES (obstructive sleep apnea) January 10:13am Osteoarthritis January 19, 2025 10: 13am Pulmonary hypertension January 19, 2025 10:13am Type 2 diabetes mellitus January 19 10:13am Venous insufficiency January 19, 2025 10 :13am Dizziness January 19, 2025 12: 51pm Iron deficiency January 19, 2025 12: 51pm Vitamin D deficiency January 19, 2025 12 :51pm Chief Complaint Admit Date 6 M FU October 18, 2024 1:2 6pm 5 M FU November 06, 2024 10:35 am PLACEMENT November 14, 2024 10:02 am GENTAMICIN November 14, 2024 11:54 am PICC draw-gentamycin level & additional labs November 15, 2024 10:45am GENTAMICIN November 16, 2024 7:52a m GENTAMICIN November 17, 2024 8:49a m wound November 17, 2024 10:15 am GENTAMICIN November 18, 2024 9:16a m PICC draw/drsg change November 20, 2024 10: 26am GENTAMICIN November 22, 2024 9:17a m dizzy November 27, 2024 4:12p m [facility] FOLLOW UP - INNER EAR INFECTION December 07, 2024 12:32pm wound December 15, 2024 10:1 5am wound January 12, 2025 10:4 5am wound January 19, 2025 10: 13am ACUTE DIZZINESS January 19, 2025 12: 51pm 3 m fu February 07, 2025 1: 24pm 4 M FU 2025 2: 50pm Reason for Visit Admit Date 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 October 18, 2024 1:26pm Morbid obesity with BMI of 45.0-49.9, ad ult October 18, 2024 1:26pm DOLORES (obstructive sleep apnea) September 1:26pm Pulmonary hypertension October 18, 2024 1:26pm Essential hypertension November 06, 2024 10 :35am Hypothyroidism November 06, 2024 10:35 am Insomnia November 06, 2024 10:35 am Cellulitis of left lower extremity October [id number] 10:15am 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, limited to breakdown skin November 17, 2024 10:15am Venous stasis ulcer of left ankle limited to breakdown of skin November 17, 2024 10:15am Venous stasis ulcer of left calf with fa t layer exposed November 17, 2024 10:15am Venous stasis ulcer of right calf with f at layer exposed November 17, 2024 10:15am Venous ulcer with fat layer exposed November 17, 2024 10:15am Chronic hypoxemic respiratory failure Ma y 2024 10:15am COPD (chronic obstructive pulmonary dise ase) November 17, 2024 10:15am Debility November 17, 2024 10:15 am Edema of both lower extremities October 10:15am Essential hypertension November 17, 2024 10 :15am Hypothyroidism November 17, 2024 10:15 am Lymphedema November 17, 2024 10:15 am Morbid obesity with BMI of 45.0-49.9, ad ult November 17, 2024 10:15am DOLORES (obstructive sleep apnea) November 17, 2024 10:15am Osteoarthritis November 17, 2024 10:15 am Pulmonary hypertension November 17, 2024 10 :15am Type 2 diabetes mellitus November 17, 2024 10:15am Venous insufficiency November 17, 2024 10:1 5am Rhinosinusitis December 07, 2024 12:3 2pm Vertigo December 07, 2024 12:3 2pm Cellulitis of left lower extremity December 15, 2024 10:15am 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, limited to breakdown skin December 15, 2024 10:15am Venous stasis ulcer of left calf with fa t layer exposed December 15, 2024 10:15am Venous stasis ulcer of right calf with f at layer exposed December 15, 2024 10:15am Venous ulcer with fat layer exposed December 15, 2024 10:15am Chronic hypoxemic respiratory failure Ju ne 2024 10:15am COPD (chronic obstructive pulmonary dise ase) December 15, 2024 10:15am Debility December 15, 2024 10:1 5am Edema of both lower extremities November 10:15am Essential hypertension December 15, 2024 1 0:15am Hypothyroidism December 15, 2024 10:1 5am Lymphedema December 15, 2024 10:1 5am Morbid obesity with BMI of 45.0-49.9, ad ult December 15, 2024 10:15am DOLORES (obstructive sleep apnea) December 15, 2024 10:15am Osteoarthritis December 15, 2024 10:1 5am Pulmonary hypertension December 15, 2024 1 0:15am Type 2 diabetes mellitus December 15, 2024 10:15am Venous insufficiency December 15, 2024 10: 15am Cellulitis of left lower extremity January 12, 2025 10:45am 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, limited to breakdown skin January 12, 2025 10:45am Venous stasis ulcer of left calf with fa t layer exposed January 12, 2025 10:45am Venous stasis ulcer of right calf with f at layer exposed January 12, 2025 10:45am Venous ulcer with fat layer exposed January 12, 2025 10:45am Chronic hypoxemic respiratory failure Ju 2024 10:45am COPD (chronic obstructive pulmonary dise ase) January 12, 2025 10:45am Debility January 12, 2025 10:4 5am Edema of both lower extremities December 10:45am Essential hypertension January 12, 2025 1 0:45am Hypothyroidism January 12, 2025 10:4 5am Lymphedema January 12, 2025 10:4 5am Morbid obesity with BMI of 45.0-49.9, ad ult January 12, 2025 10:45am DOLORES (obstructive sleep apnea) January 12, 2025 10:45am Osteoarthritis January 12, 2025 10:4 5am Pulmonary hypertension January 12, 2025 1 0:45am Type 2 diabetes mellitus January 12, 2025 10:45am Venous insufficiency January 12, 2025 10: 45am Cellulitis of left lower extremity Augus 2024 10:13am 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, limited to breakdown skin January 19, 2025 10:13am Venous stasis ulcer of left calf with fa t layer exposed January 19, 2025 10:13am Venous stasis ulcer of right calf with f at layer exposed January 19, 2025 10:13am Venous ulcer with fat layer exposed Augu 2024 10:13am Chronic hypoxemic respiratory failure Au 2024 10:13am COPD (chronic obstructive pulmonary dise ase) January 19, 2025 10:13am Debility January 19, 2025 10: 13am Edema of both lower extremities January 192024 10:13am Essential hypertension January 19, 2025 10:13am Hypothyroidism January 19, 2025 10: 13am Lymphedema January 19, 2025 10: 13am Morbid obesity with BMI of 45.0-49.9, ad ult January 19, 2025 10:13am DOLORES (obstructive sleep apnea) January 10:13am Osteoarthritis January 19, 2025 10: 13am Pulmonary hypertension January 19, 2025 10:13am Type 2 diabetes mellitus January 19 10:13am Venous insufficiency January 19, 2025 10 :13am Dizziness January 19, 2025 12: 51pm Iron deficiency January 19, 2025 12: 51pm Vitamin D deficiency January 19, 2025 12 :51pm Vitamin D deficiency February 07, 2025 1 :24pm COPD (chronic obstructive pulmonary dise ase) February 07, 2025 1:24pm Elevated blood uric acid level February 072024 1:24pm Essential hypertension February 07, 2025 1:24pm Hypothyroidism February 07, 2025 1: 24pm Type 2 diabetes mellitus February 07 1:24pm Vertigo February 07, 2025 1: 24pm Dizziness 2025 2: 50pm Essential hypertension 2025 2:50pm Hyperlipidemia 2025 2: 50pm Palpitations 2025 2: 50pm Chief Complaint Admit Date GENTAMICIN November 22, 2024 9:17a m dizzy November 27, 2024 4:12p m [facility] FOLLOW UP - INNER EAR INFECTION December 07, 2024 12:32pm wound December 15, 2024 10:1 5am wound January 12, 2025 10:4 5am wound January 19, 2025 10: 13am ACUTE DIZZINESS January 19, 2025 12: 51pm 3 m fu February 07, 2025 1: 24pm 4 M FU 2025 2: 50pm VERTIGO March 06, 2025 1:15pm Reason for Visit Admit Date Rhinosinusitis December 07, 2024 12:3 2pm Vertigo December 07, 2024 12:3 2pm Cellulitis of left lower extremity December 15, 2024 10:15am 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, limited to breakdown skin December 15, 2024 10:15am Venous stasis ulcer of left calf with fa t layer exposed December 15, 2024 10:15am Venous stasis ulcer of right calf with f at layer exposed December 15, 2024 10:15am Venous ulcer with fat layer exposed December 15, 2024 10:15am Chronic hypoxemic respiratory failure Ju ne 2024 10:15am COPD (chronic obstructive pulmonary dise ase) December 15, 2024 10:15am Debility December 15, 2024 10:1 5am Edema of both lower extremities November 10:15am Essential hypertension December 15, 2024 1 0:15am Hypothyroidism December 15, 2024 10:1 5am Lymphedema December 15, 2024 10:1 5am Morbid obesity with BMI of 45.0-49.9, ad ult December 15, 2024 10:15am DOLORES (obstructive sleep apnea) December 15, 2024 10:15am Osteoarthritis December 15, 2024 10:1 5am Pulmonary hypertension December 15, 2024 1 0:15am Type 2 diabetes mellitus December 15, 2024 10:15am Venous insufficiency December 15, 2024 10: 15am Cellulitis of left lower extremity January 12, 2025 10:45am 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, limited to breakdown skin January 12, 2025 10:45am Venous stasis ulcer of left calf with fa t layer exposed January 12, 2025 10:45am Venous stasis ulcer of right calf with f at layer exposed January 12, 2025 10:45am Venous ulcer with fat layer exposed January 12, 2025 10:45am Chronic hypoxemic respiratory failure Ju 2024 10:45am COPD (chronic obstructive pulmonary dise ase) January 12, 2025 10:45am Debility January 12, 2025 10:4 5am Edema of both lower extremities December 10:45am Essential hypertension January 12, 2025 1 0:45am Hypothyroidism January 12, 2025 10:4 5am Lymphedema January 12, 2025 10:4 5am Morbid obesity with BMI of 45.0-49.9, ad ult January 12, 2025 10:45am DOLORES (obstructive sleep apnea) January 12, 2025 10:45am Osteoarthritis January 12, 2025 10:4 5am Pulmonary hypertension January 12, 2025 1 0:45am Type 2 diabetes mellitus January 12, 2025 10:45am Venous insufficiency January 12, 2025 10: 45am Cellulitis of left lower extremity Augus t 2024 10:13am 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, limited to breakdown skin January 19, 2025 10:13am Venous stasis ulcer of left calf with fa t layer exposed January 19, 2025 10:13am Venous stasis ulcer of right calf with f at layer exposed January 19, 2025 10:13am Venous ulcer with fat layer exposed st 2024 10:13am Chronic hypoxemic respiratory failure Au 2024 10:13am COPD (chronic obstructive pulmonary dise ase) January 19, 2025 10:13am Debility January 19, 2025 10: 13am Edema of both lower extremities January 192024 10:13am Essential hypertension January 19, 2025 10:13am Hypothyroidism January 19, 2025 10: 13am Lymphedema January 19, 2025 10: 13am Morbid obesity with BMI of 45.0-49.9, ad ult January 19, 2025 10:13am DOLORES (obstructive sleep apnea) January 10:13am Osteoarthritis January 19, 2025 10: 13am Pulmonary hypertension January 19, 2025 10:13am Type 2 diabetes mellitus January 19 10:13am Venous insufficiency January 19, 2025 10 :13am Dizziness January 19, 2025 12: 51pm Iron deficiency January 19, 2025 12: 51pm Vitamin D deficiency January 19, 2025 12 :51pm Vitamin D deficiency February 07, 2025 1 :24pm COPD (chronic obstructive pulmonary dise ase) February 07, 2025 1:24pm Elevated blood uric acid level February 072024 1:24pm Essential hypertension February 07, 2025 1:24pm Hypothyroidism February 07, 2025 1: 24pm Type 2 diabetes mellitus February 07 1:24pm Vertigo February 07, 2025 1: 24pm Dizziness 2025 2: 50pm Essential hypertension 2025 2:50pm Hyperlipidemia 2025 2: 50pm Palpitations 2025 2: 50pm Chief Complaint Admit Date [facility] FOLLOW UP - INNER EAR INFECTION December 07, 2024 12:32pm wound December 15, 2024 10:1 5am wound January 12, 2025 10:4 5am wound January 19, 2025 10: 13am ACUTE DIZZINESS January 19, 2025 12: 51pm 3 m fu February 07, 2025 1: 24pm 4 M FU 2025 2: 50pm VERTIGO March 06, 2025 1:15pm 1YR LABS March 28, 2025 1: 11pm ELEVATED D-DIMER,SWELLING March 28, 2 025 1:15pm Reason for Visit Admit Date Rhinosinusitis December 07, 2024 12:3 2pm Vertigo December 07, 2024 12:3 2pm Cellulitis of left lower extremity December 15, 2024 10:15am 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, limited to breakdown skin December 15, 2024 10:15am Venous stasis ulcer of left calf with fa t layer exposed December 15, 2024 10:15am Venous stasis ulcer of right calf with f at layer exposed December 15, 2024 10:15am Venous ulcer with fat layer exposed December 15, 2024 10:15am Chronic hypoxemic respiratory failure Ju ne 2024 10:15am COPD (chronic obstructive pulmonary dise ase) December 15, 2024 10:15am Debility December 15, 2024 10:1 5am Edema of both lower extremities November 10:15am Essential hypertension December 15, 2024 1 0:15am Hypothyroidism December 15, 2024 10:1 5am Lymphedema December 15, 2024 10:1 5am Morbid obesity with BMI of 45.0-49.9, ad ult December 15, 2024 10:15am DOLORES (obstructive sleep apnea) December 15, 2024 10:15am Osteoarthritis December 15, 2024 10:1 5am Pulmonary hypertension December 15, 2024 1 0:15am Type 2 diabetes mellitus December 15, 2024 10:15am Venous insufficiency December 15, 2024 10: 15am Cellulitis of left lower extremity January 12, 2025 10:45am 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, limited to breakdown skin January 12, 2025 10:45am Venous stasis ulcer of left calf with fa t layer exposed January 12, 2025 10:45am Venous stasis ulcer of right calf with f at layer exposed January 12, 2025 10:45am Venous ulcer with fat layer exposed January 12, 2025 10:45am Chronic hypoxemic respiratory failure Ju 2024 10:45am COPD (chronic obstructive pulmonary dise ase) January 12, 2025 10:45am Debility January 12, 2025 10:4 5am Edema of both lower extremities December 10:45am Essential hypertension January 12, 2025 1 0:45am Hypothyroidism January 12, 2025 10:4 5am Lymphedema January 12, 2025 10:4 5am Morbid obesity with BMI of 45.0-49.9, ad ult January 12, 2025 10:45am DOLORES (obstructive sleep apnea) January 12, 2025 10:45am Osteoarthritis January 12, 2025 10:4 5am Pulmonary hypertension January 12, 2025 1 0:45am Type 2 diabetes mellitus January 12, 2025 10:45am Venous insufficiency January 12, 2025 10: 45am Cellulitis of left lower extremity [id number] 10:13am 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, limited to breakdown skin January 19, 2025 10:13am Venous stasis ulcer of left calf with fa t layer exposed January 19, 2025 10:13am Venous stasis ulcer of right calf with f at layer exposed January 19, 2025 10:13am Venous ulcer with fat layer exposed 2024 10:13am Chronic hypoxemic respiratory failure Au 2024 10:13am COPD (chronic obstructive pulmonary dise ase) January 19, 2025 10:13am Debility January 19, 2025 10: 13am Edema of both lower extremities January 192024 10:13am Essential hypertension January 19, 2025 10:13am Hypothyroidism January 19, 2025 10: 13am Lymphedema January 19, 2025 10: 13am Morbid obesity with BMI of 45.0-49.9, ad ult January 19, 2025 10:13am DOLORES (obstructive sleep apnea) January 10:13am Osteoarthritis January 19, 2025 10: 13am Pulmonary hypertension January 19, 2025 10:13am Type 2 diabetes mellitus January 19 10:13am Venous insufficiency January 19, 2025 10 :13am Dizziness January 19, 2025 12: 51pm Iron deficiency January 19, 2025 12: 51pm Vitamin D deficiency January 19, 2025 12 :51pm Vitamin D deficiency February 07, 2025 1 :24pm COPD (chronic obstructive pulmonary dise ase) February 07, 2025 1:24pm Elevated blood uric acid level February 072024 1:24pm Essential hypertension February 07, 2025 1:24pm Hypothyroidism February 07, 2025 1: 24pm Type 2 diabetes mellitus February 07 1:24pm Vertigo February 07, 2025 1: 24pm Dizziness 2025 2: 50pm Essential hypertension 2025 2:50pm Hyperlipidemia 2025 2: 50pm Palpitations 2025 2: 50pm Abnormal laboratory test March 28 1:11pm DVT, bilateral lower limbs March 28, 2025 1:11pm Additional Source Comments INFORMATION SOURCE (unrecogn ized section and content) DATE CREATED AUTHOR 08/26/2018 [facility] DATE CREATED AUTHOR AUTHOR'S ORGANIZ ATION 11/07/2018 [facility] DATE CREATED AUTHOR AUTHOR'S ORGANIZ ATION 01/13/2019 [facility] DATE CREATED AUTHOR AUTHOR'S ORGANIZ ATION 02/17/2019 [facility] DATE CREATED AUTHOR AUTHOR'S ORGANIZ ATION 10/28/2020 [facility] DATE CREATED AUTHOR AUTHOR'S ORGANIZ ATION 01/11/2021 [facility] DATE CREATED AUTHOR AUTHOR'S ORGANIZ ATION 01/26/2021 [facility] DATE CREATED AUTHOR AUTHOR'S ORGANIZ ATION 01/26/2021 [facility] DATE CREATED AUTHOR AUTHOR'S ORGANIZ ATION 02/13/2025 [facility] [place] DATE CREATED AUTHOR AUTHOR'S ORGANIZ ATION 02/16/2025 [facility] DATE CREATED AUTHOR AUTHOR'S ORGANIZ ATION 04/28/2025 [facility] Reason for Visit (unrecogniz ed section and content) Reason Comments Hip Pain Status Reason Specialty Diagnoses / Procedures Referred By Contact Referred To Contact Auth Not Needed Physical Therapy Diagnoses Lumbosacral radiculopathy Sacroiliac joint pain Pain of left hip joint Trochanteric bursitis of left hip Marjorie Narayanan, DO [address] [place] [address] Reason Comments Back Pain Reason Comments PT Treatment Back Pain Status Reason Specialty Diagnoses / Procedures Referred By Contact Referred To Contact Auth Not Needed Physical Therapy Diagnoses Lumbosacral radiculopathy Sacroiliac joint pain Pain of left hip joint Trochanteric bursitis of left hip Marjorie Narayanan, DO [address] [facility] [place] [address] [facility] [address] [id number] Reason Comments Back Pain Hip Pain Reason Comments Back Pain Status Reason Specialty Diagnoses / Procedures Referred By Contact Referred To Contact New Request Diagnoses Sciatica of left side Ant Gonzalez MD [address] [id number] Marjorie Narayanan, DO [address] [place] [address] Reason Comments PT Eval Back Pain Hip Pain Status Reason Specialty Diagnoses / Procedures Referred By Contact Referred To Contact Auth Not Needed Physical Therapy Diagnoses Lumbosacral radiculopathy Sacroiliac joint pain Pain of left hip joint Trochanteric bursitis of left hip Marjorie Narayanan, DO [address] [facility] [place] [address] [facility] [address] [place] [address] Reason Comments PT Treatment Back Pain Hip Pain Status Reason Specialty Diagnoses / Procedures Referred By Contact Referred To Contact Auth Not Needed Physical Therapy Diagnoses Lumbosacral radiculopathy Sacroiliac joint pain Pain of left hip joint Trochanteric bursitis of left hip Marjorie Narayanan, DO [address] [facility], [facility] [place] [address] Reason Comments PT Treatment Back Pain Status Reason Specialty Diagnoses / Procedures Referred By Contact Referred To Contact Auth Not Needed Physical Therapy Diagnoses Lumbosacral radiculopathy Sacroiliac joint pain Pain of left hip joint Trochanteric bursitis of left hip Marjorie Narayanan, DO [address] [place] [address] Reason Comments Back Pain PT Summary Status Reason Specialty Diagnoses / Procedures Referred By Contact Referred To Contact Closed Physical Therapy Diagnoses Lumbosacral radiculopathy Sacroiliac joint pain Pain of left hip joint Trochanteric bursitis of left hip Marjorie Narayanan, DO [address] [place] [address] Status Reason Specialty Diagnoses / Procedures Referre [...] Mammography Screening Bilateral Paul Hurley MD [address] [place] [address] [id number] Reason Onset Date Comments Medication Refill 07/16/2020 [...] of facet joint of lumbar spine Marjorie Narayanan, DO [address] [facility], [facility] [place] [address] [facility] Physical Therapy [facility] [place] [address] Reason Onset Date Comments Follow-up 3 mo/check [...] unspecified Procedures MRI SPINE LUMBAR WITHOUT CONTRAST [facility], LUMBAR SPINE Marjorie Narayanan, DO [address] [place] [address] [facility] [address] [place] [address] Status Reason Specialty Diagnoses / Procedures Referred By Contact Referred To Contact New Request Physical Therapy Diagnoses Lumbosacral radiculopathy Sacroiliac joint pain Low back pain, unspecified back pain laterality, unspecified chronicity, with sciatica presence unspecified Trochanteric bursitis of left hip Marjorie Narayanan, DO [address] [facility], [place] [address] [facility] [address] [place] [address] Status Reason Specialty Diagnoses / Procedures Referred By Contact Referred To Contact Closed Specialty Services Required/Patien t's Best Interest Gastroenterology Diagnoses Type 2 diabetes mellitus with diabetic polyneuropathy, without long-term current use of insulin ([facility]) Paul Hurley MD [address] [place] [address] Zeferino Alicia MD [address] [place] [id number] Reason Onset Date Comments Medication Problem 11/10/2010 Reason Comments Acute Visit may need controlled nhaler due to excessive use of rescue inhaler Reason Onset Date Comments Medication Refill 10/29/2020 Reason Onset Date Comments 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 No imaging done. States I have crystals in my ear. No chest pain, no new SOB. Abilio Sanders MD - 06/03/2019 9:38 AM EST H&P Notes (unrecognized sect ion and content) Internal Medicine Inpatient H&P 06/03/2019 Abilio Sanders MD [facility] Patient: Liz Wadsworth Date of : 1950 (69 y.o.) PCP: Paul Hurley MD ASSESSMENT/PLAN: * Cellulitis of lower extremity Assessment & Plan Unresolved cellulitis as outpatient treatment ASSESSMENT & PLAN Liz Wadsworth 69 y.o. female with history of patient was seen by Dr. Joseph service engine repairer's office for follow-up of bilateral lower extremity [...] massive weight. History of Present Illness: Liz Wadsworth is a 69 y.o. female presenting from [...] mg, 100 mg, Oral, Daily flu vacc [id number](65yr up)PF (FLUZONE HIGH DOSE) syringe 0.5 mL, [...] DISEASES CONSULT NOTE 06/05/2019 Patient Name: Liz Wadsworth Admit Date: [id number] MR #: [id number] : 1950 Physicians: Paul Hurley MD (Family); [...] by Dr. Marilyn MD on 06/03/2019 Liz Wadsworth is a 69 y.o. female presenting from [...] Date Arthritis Asthma CHF (congestive heart failure) ([facility]) COPD (chronic obstructive pulmonary disease) (HCC) Disease [...] file Gets together: Not on file Attends restorationist service: Not on file Active member of [...] Normal Mariela After 48 Hours. Final. Radiology [facility]: MRI Lumbar Spine 01/30/2019 1. At L4-L5, there is degenerative grade 1 anterolisthesis secondary to facet arthropathy. There is severe spinal canal and bilateral lateral recess stenosis, and asymmetric mild to moderate left foraminal stenosis as described. 2. At L3-L4, there is moderate spinal canal stenosis and moderate bilateral foraminal stenosis as described. 3. At L5-S1, there is severe right and [id number] left neural foraminal stenosis as described. 4. Multiple small retroperitoneal lymph nodes are visualized, which are nonspecific. Left Hip/Pelvis X-Ray 09/16/2018 [facility]: 1. No acute osseous abnormality. 2. Mild left hip osteoarthrosis. 3. Mild enthesopathic change of the greater trochanter. Spine/Lumbosacral X-Ray 09/16/2018 [facility]: 1. No acute fracture, malalignment, or instability. [...] Estimated Needs: 1500-1800cal Method for Estimating Needs: [id number],adjbw Total Protein Estimated Needs: 84-92gms Method for [...] request. B/l LE drsgs changed per dr huitron. Polite and appreciative with provided care. Decaf [...] modification advised. documented in this encounter Durga Irwin DO - 01/28/2020 2:21 PM Durga Salgado RN - 01/28/2020 2:20 PM EDT ED Notes (unrecognized secti on and content) ED PROVIDER NOTE [facility] EMERGENCY DEPARTMENT NAME: Liz Wadsworth AGE: 69 y.o. : 1950 VISIT DATE: 01/28/2020 CSN: [id number] PCP: Paul Hurley MD Chief Complaint Patient [...] file Gets together: Not on file Attends restorationist service: Not on file Active member of [...] ED Disposition Condition Comment Discharge Stable Liz Wadsworth discharged to home/self care in stable condition. Follow-up Information 1. Paul Hurley MD. Specialty: Internal Medicine [address] [place] [id number] Contact information for after-discharge care Follow-up information has not been specified. New Prescriptions sulfamethoxazole-trimethoprim (BACTRIM DS,SEPTRA DS) 800-160 mg per tablet Take 1 (one) tablet by mouth 2 (two) times a day for 10 days . Durga Irwin DO 01/28/20 1504 Pt notes left lower leg pain x [...] or prosecute any alcohol or drug abuse patient.[facility] Care Teams (unrecognized sec tion and content) Team Status: Active Member Role Status Dates Dr. Luis Cortés MD Primary Care Provider Active Team Status: Inactive Member Role Status Dates Dr. Luis Cortés MD Primary Care Provider Active Start: July 21, 2024 End: July 21, 2024 Dr. Luis Cortés MD Referring Provider Active Start: July 21, 2024 End: July 21, 2024 Dr. Sneha Rosa DO Attending Provider Active St art: July 21, 2024 End: July 21, 2024 SUNIL Brasher Other Provider Active Start: J anuary 2024 End: July 21, 2024 Team Status: Inactive Member Role Status Dates Dr. Luis Cortés MD Primary Care Provider Active Start: July 27, 2024 End: July 27, 2024 Dr. Eliud Giraldo MD Attending Provider Active S tart: July 27, 2024 End: July 27, 2024 Dr. Eliud Giraldo MD Referring Provider Active S tart: July 27, 2024 End: July 27, 2024 Team Status: Active Member Role Status Dates Dr. Luis Cortés MD Primary Care Provider Active Start: July 27, 2024 Dr. Eliud Giraldo MD Attending Provider Active S tart: July 27, 2024 Dr. Eliud Giraldo MD Referring Provider Active S tart: July 27, 2024 Dr. Eliud Giraldo MD Other Provider Active Start : July 27, 2024 Team Status: Inactive Member Role Status Dates Dr. Luis Cortés MD Primary Care Provider Active Start: July 31, 2024 End: July 31, 2024 Dr. Eliud Giraldo MD Attending Provider Active S tart: July 31, 2024 End: July 31, 2024 Dr. Eliud Giraldo MD Referring Provider Active S tart: July 31, 2024 End: July 31, 2024 Team Status: Active Member Role Status Dates Dr. Luis Cortés MD Primary Care Provider Active Start: July 31, 2024 Dr. Eliud Giraldo MD Attending Provider Active S tart: July 31, 2024 SUNIL Brasher Referring Provider Active Star t: July 31, 2024 Team Status: Inactive Member Role Status Dates Dr. Luis Cortés MD Primary Care Provider Active Start: August 02, 2024 End: August 02, 2024 Dr. Luis Cortés MD Referring Provider Active Start: August 02, 2024 End: August 02, 2024 SUNIL Brasher Attending Provider Active Star t: August 02, 2024 End: August 02, 2024 Team Status: Inactive Member Role Status Dates Dr. Luis Cortés MD Primary Care Provider Active Start: August 18, 2024 End: August 18, 2024 Dr. Luis Cortés MD Referring Provider Active Start: August 18, 2024 End: August 18, 2024 Dr. Sneha Rosa DO Attending Provider Active St art: August 18, 2024 End: August 18, 2024 SUNIL Brasher Other Provider Active Start: [facility] End: August 18, 2024 Team Status: Inactive Member Role Status Dates Dr. Luis Cortés MD Primary Care Provider Active Start: August 28, 2024 End: August 28, 2024 Dr. Luis Cortés MD Referring Provider Active Start: August 28, 2024 End: August 28, 2024 Navneet Michel CONTACT AGENT, CONTACT AGENT-C Attending Provider Active S tart: August 28, 2024 End: August 28, 2024 Team Status: Inactive Member Role Status Dates Dr. Luis Cortés MD Primary Care Provider Active Start: August 28, 2024 End: August 28, 2024 Navneet Michel CONTACT AGENT, CONTACT AGENT-C Attending Provider Active S tart: August 28, 2024 End: August 28, 2024 Team Status: Inactive Member Role Status Dates Dr. Luis Cortés MD Primary Care Provider Active Start: September 15, 2024 End: September 18, 2024 Dr. Luis Cortés MD Referring Provider Active Start: September 15, 2024 End: September 18, 2024 Dr. Sneha Rosa DO Attending Provider Active St art: September 15, 2024 End: September 18, 2024 SUNIL Brasher Other Provider Active Start: [facility] 2024 End: September 18, 2024 Team Status: Inactive Member Role Status Dates Dr. Luis Cortés MD Primary Care Provider Active Start: September 22, 2024 End: September 22, 2024 Navneet Michel CONTACT AGENT, CONTACT AGENT-C Attending Provider Active S tart: September 22, 2024 End: September 22, 2024 Navneet Michel CONTACT AGENT, CONTACT AGENT-C Referring Provider Active S tart: September 22, 2024 End: September 22, 2024 Team Status: Active Member Role Status Dates Dr. Luis Cortés MD Primary Care Provider Active Start: September 22, 2024 Dr. Keven Corey MD Attending Provider Active S tart: September 22, 2024 Team Status: Inactive Member Role Status Dates Dr. Luis Cortés MD Primary Care Provider Active Start: October 03, 2024 End: October 03, 2024 Dr. Luis Cortés MD Referring Provider Active Start: October 03, 2024 End: October 03, 2024 Zainab Cherry CONTACT AGENT, CONTACT AGENT-C Attending Provider Active Start: October 03, 2024 End: October 03, 2024 Team Status: Inactive Member Role Status Dates Dr. Luis Cortés MD Primary Care Provider Active Start: October 13, 2024 End: October 18, 2024 Dr. Luis Cortés MD Referring Provider Active Start: October 13, 2024 End: October 18, 2024 Dr. Sneha Rosa DO Attending Provider Active St art: October 13, 2024 End: October 18, 2024 SUNIL Brasher Other Provider Active Start: A 2024 End: October 18, 2024 Team Status: Inactive Member Role Status Dates Dr. Luis Cortés MD Primary Care Provider Active Start: October 16, 2024 End: October 16, 2024 Zainab Cherry CONTACT AGENT, CONTACT AGENT-C Attending Provider Active Start: October 16, 2024 End: October 16, 2024 Zainab Cherry CONTACT AGENT, CONTACT AGENT-C Referring Provider Active Start: October 16, 2024 End: October 16, 2024 Team Status: Active Member Role Status Dates Dr. Luis Cortés MD Primary Care Provider Active Start: October 16, 2024 Dr. Eliud Giraldo MD Attending Provider Active S tart: October 16, 2024 Zainab Cherry CONTACT AGENT, CONTACT AGENT-C Referring Provider Active Start: October 16, 2024 Team Status: Active Member Role Status Dates Dr. Luis Cortés MD Primary Care Provider Active Start: October 17, 2024 Zainab Cherry CONTACT AGENT, CONTACT AGENT-C Attending Provider Active Start: October 17, 2024 Team Status: Inactive Member Role Status Dates Dr. Luis Cortés MD Primary Care Provider Active Start: October 18, 2024 End: October 18, 2024 Dr. Luis Cortés MD Referring Provider Active Start: October 18, 2024 End: October 18, 2024 Dianne De Los Santos NP, CONTACT AGENT-C Attending Provider Active Start: October 18, 2024 End: October 18, 2024 Team Status: Active Member Role Status Dates Dr. Luis Cortés MD Primary Care Provider Active Start: November 03, 2024 Dr. Luis Cortés MD Referring Provider Active Start: November 03, 2024 Dr. Sneha Rosa DO Attending Provider Active St art: November 03, 2024 SUNIL Brasher Other Provider Active Start: 2024 Team Status: Inactive Member Role Status Dates Dr. Luis Cortés MD Primary Care Provider Active Start: November 06, 2024 End: November 06, 2024 Dr. Luis Cortés MD Attending Provider Active Start: November 06, 2024 End: November 06, 2024 Dr. Luis Cortés MD Referring Provider Active Start: November 06, 2024 End: November 06, 2024 Team Status: Active Member Role Status Dates Dr. Luis Cortés MD Primary Care Provider Active Start: June 01, 2024 Dr. Luis Cortés MD Referring Provider Active Start: June 01, 2024 Dr. Sneha Rosa DO Other Provider Active Start: June 01, 2024 SUNIL Brasher Attending Provider Active Star t: June 01, 2024 SUNIL Brasher Other Provider Active Start: 2023 Team Status: Inactive Member Role Status Dates Dr. Luis Cortés MD Primary Care Provider Active Start: June 08, 2024 End: June 08, 2024 Dr. Luis Cortés MD Attending Provider Active Start: June 08, 2024 End: June 08, 2024 Dr. Luis Cortés MD Referring Provider Active Start: June 08, 2024 End: June 08, 2024 Team Status: Inactive Member Role Status Dates Dr. Luis Cortés MD Primary Care Provider Active Start: June 16, 2024 End: June 20, 2024 Dr. Luis Cortés MD Referring Provider Active Start: June 16, 2024 End: June 20, 2024 Dr. Sneha Rosa DO Attending Provider Active St art: June 16, 2024 End: June 20, 2024 SUNIL Brasher Other Provider Active Start: D ec2023 End: June 20, 2024 Team Status: Inactive Member Role Status Dates Dr. Luis Cortés MD Primary Care Provider Active Start: June 27, 2024 End: June 27, 2024 Dr. Luis Cortés MD Attending Provider Active Start: June 27, 2024 End: June 27, 2024 Dr. Luis Cortés MD Referring Provider Active Start: June 27, 2024 End: June 27, 2024 Kennel Assistant Relationship Specialty Start Date End Date Paul Hurley MD [address] [place] [id number] PCP - General Internal Medicine 01/03/18 Kennel Assistant Relationship Specialty Start Date End Date Paul Hurley MD [address] [place] [address] PCP - General Internal Medicine 01/03/18 07/30/21 Team Status: Active Member Role Status Dates Dr. Ny Anderson MD Family Provider Active Dr. Luis Cortés MD Primary Care Provider Active Team Status: Inactive Member Role Status Dates Dr. Luis Cortés MD Primary Care P barry, Attending Provider, Referring Provider Active Team Status: Inactive Member Role Status Dates Dr. Luis Cortés MD Primary Care Provider, Refer ring Provider Active Dr. Eliud Giraldo MD Attending Provider Active Team Status: Inactive Member Role Status Dates Dr. Luis Cortés MD Primary Care Provider, Refer ring Provider Active Dr. Jon Rubio MD Attending Provider Active Team Status: Active Member Role Status Dates Dr. Luis Cortés MD Primary Care Provider Active Dr. Keven Corey MD Attending Provider Active Team Status: Active Member Role Status Dates Dr. Luis Cortés MD Primary Care Provider Active Charlee Sunshine Attending Provider Active Team Status: Inactive Member Role Status Dates Dr. Luis Cortés MD Primary Care Provider, Refer ring Provider Active Dr. Ant Kasper MD Attending Provider Active Team Status: Active Member Role Status Dates Dr. Luis Cortés MD Primary Care Provider, Refer ring Provider Active Dr. Ant Kasper MD Attending Provider, Other Provider Active Team Status: Inactive Member Role Status Dates Dr. Luis Cortés MD Primary Care Provider, Refer ring Provider Active Dr. Keven Corey MD Active Zainab Cherry CONTACT AGENT, CONTACT AGENT-C Attending Provider Active Team Status: Inactive Member Role Status Dates Dr. Luis Cortés MD Primary Care Provider, Refer ring Provider Active Surgery Nurse Attending Provider Active Team Status: Inactive Member Role Status Dates Dr. Luis Cortés MD Primary Care Provider Active Dr. Jon Rubio MD Attending Provider Active Team Status: Active Member Role Status Dates Dr. Luis Cortés MD Primary Care Provider Active Dr. Jon Rubio MD Attending Provider, Referring Pro vider Active Team Status: Inactive Member Role Status Dates Dr. Luis Cortés MD Primary Care Provider Active Dr. Ant Kasper MD Attending Provider, Referr ing Provider Active Team Status: Active Member Role Status Dates Dr. Luis Cortés MD Primary Care Provider Active Molly Bijacekenharlilly PA, PA Attending Provider, Other Pr ovider Active Team Status: Inactive Member Role Status Dates Dr. Luis Cortés MD Primary Care Provider Active Molly Biedenharlilly PA, PA Attending Provider Active Team Status: Inactive Member Role Status Dates Dr. Luis Cortés MD Primary Care Provider, Refer ring Provider Active Dianne De Los Santos CONTACT AGENT, CONTACT AGENT-C Attending Provider Active Team Status: Inactive Member Role Status Dates Dr. Luis Cortés MD Primary Care Provider, Refer ring Provider Active Zainab Cherry CONTACT AGENT, CONTACT AGENT-C Attending Provider Active Team Status: Inactive Member Role Status Dates Dr. Luis Cortés MD Primary Care Provider, Refer ring Provider Active Dr. Jori Beal DO Attending Provider Active Team Status: Active Member Role Status Dates Dr. Luis Cortés MD Primary Care Provider Active Dr. Alexia Cai MD Attending Provider, Referring P rovider Active Team Status: Inactive Member Role Status Dates Dr. Luis Cortés MD Primary Care Provider Active Zainab Cherry CONTACT AGENT, CONTACT AGENT-C Attending Provider, Referring P rovider Active Team Status: Inactive Member Role Status Dates Dr. Luis Cortés MD Primary Care Provider Active Dr. Jon Rubio MD Attending Provider, Referring Pro vider Active Team Status: Inactive Member Role Status Dates Dr. Luis Cortés MD Primary Care Provider Active Dr. Yair Law DO Emergency Provider Active Team Status: Active Member Role Status Dates Dr. Luis Cortés MD Primary Care Provider Active Dr. Eliud Giraldo MD Attending Provider Active Dr. Sneha Rosa DO Referring Provider Active Team Status: Inactive Member Role Status Dates Dr. Luis Cortés MD Primary Care Provider Active Dr. Yair Law DO Attending Provider, Emergency P rovider Active Team Status: Inactive Member Role Status Dates Dr. Luis Cortés MD Primary Care Provider, Refer ring Provider Active Dr. Sneha Rosa DO Attending Provider Active Team Status: Active Member Role Status Dates Dr. Luis Cortés MD Primary Care Provider Active Dr. Durga Dover MD Attending Provider Active Team Status: Active Member Role Status Dates Dr. Luis Cortés MD Primary Care Provider Active Dr. Durga Dover MD Attending Provider Active Dr. Jon Rubio MD Referring Provider Active Team Status: Inactive Member Role Status Dates Dr. Luis Cortés MD Primary Care Provider Active Dr. Darrion Simons DO Emergency Provider Active Team Status: Active Member Role Status Dates Dr. Luis Cortés MD Primary Care Provider Active Dr. Daiana Casper MD Attending Provider Active Team Status: Inactive Member Role Status Dates Dr. Luis Cortés MD Primary Care Provider Active Start: May 12, 2024 End: May 20, 2024 Dr. Luis Cortés MD Referring Provider Active Start: May 12, 2024 End: May 20, 2024 Dr. Sneha Rosa DO Attending Provider Active St art: May 12, 2024 End: May 20, 2024 SUNIL Brasher Other Provider Active Start: N ovember 2023 End: May 20, 2024 Team Status: Active Member Role Status Dates Dr. Luis Cortés MD Primary Care Provider Active Start: September 01, 2024 Dr. Luis Cortés MD Referring Provider Active Start: September 01, 2024 Dr. Sneha Rosa DO Attending Provider Active St art: September 01, 2024 SUNIL Brasher Other Provider Active Start: M arch 2024 Team Status: Active Member Role Status Dates Dr. Luis Cortés MD Primary Care Provider Active Start: November 10, 2024 Dr. Luis Cortés MD Referring Provider Active Start: November 10, 2024 Dr. Sneha Rosa DO Attending Provider Active St art: November 10, 2024 SUNIL Brasher Other Provider Active Start: ay 2024 Team Status: Active Member Role Status Dates Dr. Luis Cortés MD Primary Care Provider Active Start: November 14, 2024 Dr. Sneha Rosa DO Attending Provider Active St art: November 14, 2024 Dr. Sneha Rosa DO Referring Provider Active St art: November 14, 2024 Team Status: Inactive Member Role Status Dates Dr. Luis Cortés MD Primary Care Provider Active Start: November 14, 2024 End: November 14, 2024 Dr. Sneha Rosa DO Attending Provider Active St art: November 14, 2024 End: November 14, 2024 Dr. Sneha Rosa DO Referring Provider Active St art: November 14, 2024 End: November 14, 2024 Team Status: Active Member Role Status Dates Dr. Luis Cortés MD Primary Care Provider Active Start: November 15, 2024 Dr. Luis Cortés MD Referring Provider Active Start: November 15, 2024 Dr. Sneha Rosa DO Attending Provider Active St art: November 15, 2024 SUNIL Brasher Other Provider Active Start: ay 2024 Team Status: Active Member Role Status Dates Dr. Luis Cortés MD Primary Care Provider Active Start: November 15, 2024 Dr. Eliud Giraldo MD Attending Provider Active S tart: November 15, 2024 Team Status: Inactive Member Role Status Dates Dr. Luis Cortés MD Primary Care Provider Active Start: November 15, 2024 End: November 15, 2024 Dr. Sneha Rosa , Attending Provider Active St art: November 15, 2024 End: November 15, 2024 Dr. Sneha Rosa DO Referring Provider Active St art: November 15, 2024 End: November 15, 2024 Team Status: Inactive Member Role Status Dates Dr. Luis Cortés MD Primary Care Provider Active Start: November 16, 2024 End: November 16, 2024 Dr. Sneha Rosa DO Attending Provider Active St art: November 16, 2024 End: November 16, 2024 Dr. Sneha Rosa DO Referring Provider Active St art: November 16, 2024 End: November 16, 2024 Team Status: Inactive Member Role Status Dates Dr. Luis Cortés MD Primary Care Provider Active Start: November 17, 2024 End: November 17, 2024 Dr. Sneha Rosa DO Attending Provider Active St art: November 17, 2024 End: November 17, 2024 Dr. Sneha Rosa DO Referring Provider Active St art: November 17, 2024 End: November 17, 2024 Team Status: Active Member Role Status Dates Dr. Luis Cortés MD Primary Care Provider Active Start: November 17, 2024 Dr. Luis Cortés MD Referring Provider Active Start: November 17, 2024 Dr. Sneha Rosa DO Attending Provider Active St art: November 17, 2024 SUNIL Brasher Other Provider Active Start: 2024 Team Status: Inactive Member Role Status Dates Dr. Luis Cortés MD Primary Care Provider Active Start: November 18, 2024 End: November 18, 2024 Dr. Sneha Rosa DO Attending Provider Active St art: November 18, 2024 End: November 18, 2024 Dr. Sneha Rosa DO Referring Provider Active St art: November 18, 2024 End: November 18, 2024 Team Status: Inactive Member Role Status Dates Dr. Luis Cortés MD Primary Care Provider Active Start: November 17, 2024 End: November 18, 2024 Dr. Luis Cortés MD Referring Provider Active Start: November 17, 2024 End: November 18, 2024 Dr. Sneha Rosa DO Attending Provider Active St art: November 17, 2024 End: November 18, 2024 SUNIL Brasher Other Provider Active Start: 2024 End: November 18, 2024 Team Status: Inactive Member Role Status Dates Dr. Luis Cortés MD Primary Care Provider Active Start: November 20, 2024 End: November 20, 2024 Dr. Sneha Rosa DO Attending Provider Active St art: November 20, 2024 End: November 20, 2024 Dr. Sneha Rosa DO Referring Provider Active St art: November 20, 2024 End: November 20, 2024 Team Status: Inactive Member Role Status Dates Dr. Luis Cortés MD Primary Care Provider Active Start: November 22, 2024 End: November 22, 2024 Dr. Sneha Rosa DO Attending Provider Active St art: November 22, 2024 End: November 22, 2024 Dr. Sneha Rosa DO Referring Provider Active St art: November 22, 2024 End: November 22, 2024 Team Status: Active Member Role Status Dates Dr. Luis Cortés MD Primary Care Provider Active Start: November 15, 2024 Dr. Eliud Giraldo MD Attending Provider Active S tart: November 15, 2024 Zainab Cherry CONTACT AGENT, CONTACT AGENT-C Referring Provider Active Start: November 15, 2024 Team Status: Active Member Role Status Dates Dr. Luis Cortés MD Primary Care Provider Active Start: November 24, 2024 Dr. Luis Cortés MD Referring Provider Active Start: November 24, 2024 Dr. Sneha Rosa DO Attending Provider Active St art: November 24, 2024 SUNIL Brasher Other Provider Active Start: 2024 Team Status: Inactive Member Role Status Dates Dr. Luis Cortés MD Primary Care Provider Active Start: November 27, 2024 End: November 27, 2024 Dr. Amara Reich DO Emergency Provider Active Start: November 27, 2024 End: November 27, 2024 Team Status: Inactive Member Role Status Dates Dr. Lusi Cortés MD Primary Care Provider Active Start: November 27, 2024 End: November 27, 2024 Dr. Amaar Reich DO Attending Provider Active Start: November 27, 2024 End: November 27, 2024 Dr. Amara Reich DO Emergency Provider Active Start: November 27, 2024 End: November 27, 2024 Team Status: Inactive Member Role Status Dates Dr. Luis Cortés MD Primary Care Provider Active Start: December 07, 2024 End: December 07, 2024 Dr. Luis Cortés MD Referring Provider Active Start: December 07, 2024 End: December 07, 2024 Ni Holt NP-C Attending Provider Active Start: December 07, 2024 End: December 07, 2024 Team Status: Active Member Role/Relationship Status Dates Dr. Luis Cortés MD Primary Care Provider Active Team Status: Inactive Member Role/Relationship Status Dates Dr. Luis Cortés MD Primary Care Provider Active Start: August 28, 2024 End: August 28, 2024 Dr. Luis Cortés MD Referring Provider Active Start: August 28, 2024 End: August 28, 2024 Navneet Michel CONTACT AGENT, CONTACT AGENT-C Attending Provider Active S tart: August 28, 2024 End: August 28, 2024 Team Status: Inactive Member Role/Relationship Status Dates Dr. Luis Cortés MD Primary Care Provider Active Start: August 28, 2024 End: August 28, 2024 Navneet Michel CONTACT AGENT, CONTACT AGENT-C Attending Provider Active S tart: August 28, 2024 End: August 28, 2024 Team Status: Inactive Member Role/Relationship Status Dates Dr. Luis Cortés MD Primary Care Provider Active Start: September 15, 2024 End: September 18, 2024 Dr. Luis Cortés MD Referring Provider Active Start: September 15, 2024 End: September 18, 2024 Dr. Sneha Rosa DO Attending Provider Active St art: September 15, 2024 End: September 18, 2024 SUNIL Brasher Other Provider Active Start: 2024 End: September 18, 2024 Team Status: Inactive Member Role/Relationship Status Dates Dr. Luis Cortés MD Primary Care Provider Active Start: September 22, 2024 End: September 22, 2024 Navneet Michel CONTACT AGENT, CONTACT AGENT-C Attending Provider Active S tart: September 22, 2024 End: September 22, 2024 Navneet Michel CONTACT AGENT, CONTACT AGENT-C Referring Provider Active S tart: September 22, 2024 End: September 22, 2024 Team Status: Active Member Role/Relationship Status Dates Dr. Luis Cortés MD Primary Care Provider Active Start: September 22, 2024 Dr. Keven Corey MD Attending Provider Active S tart: September 22, 2024 Team Status: Inactive Member Role/Relationship Status Dates Dr. Luis Cortés MD Primary Care Provider Active Start: October 03, 2024 End: October 03, 2024 Dr. Luis Cortés MD Referring Provider Active Start: October 03, 2024 End: October 03, 2024 Zainab Cherry NP, CONTACT AGENT-C Attending Provider Active Start: October 03, 2024 End: October 03, 2024 Team Status: Inactive Member Role/Relationship Status Dates Dr. Luis Cortés MD Primary Care Provider Active Start: October 13, 2024 End: October 18, 2024 Dr. Luis Cortés MD Referring Provider Active Start: October 13, 2024 End: October 18, 2024 Dr. Sneha Rosa DO Attending Provider Active St art: October 13, 2024 End: October 18, 2024 SUNIL Brasher Other Provider Active Start: A 2024 End: October 18, 2024 Team Status: Inactive Member Role/Relationship Status Dates Dr. Luis Cortés MD Primary Care Provider Active Start: October 16, 2024 End: October 16, 2024 Zainab Cherry CONTACT AGENT, CONTACT AGENT-C Attending Provider Active Start: October 16, 2024 End: October 16, 2024 Zainab Cherry CONTACT AGENT, CONTACT AGENT-C Referring Provider Active Start: October 16, 2024 End: October 16, 2024 Team Status: Active Member Role/Relationship Status Dates Dr. Luis Cortés MD Primary Care Provider Active Start: October 16, 2024 Dr. Eliud Giraldo MD Attending Provider Active S tart: October 16, 2024 Zainab Cherry CONTACT AGENT, CONTACT AGENT-C Referring Provider Active Start: October 16, 2024 Team Status: Active Member Role/Relationship Status Dates Dr. Luis Cortés MD Primary Care Provider Active Start: October 17, 2024 Zainab Cherry CONTACT AGENT, CONTACT AGENT-C Attending Provider Active Start: October 17, 2024 Team Status: Inactive Member Role/Relationship Status Dates Dr. Luis Cortés MD Primary Care Provider Active Start: October 18, 2024 End: October 18, 2024 Dr. Luis Cortés MD Referring Provider Active Start: October 18, 2024 End: October 18, 2024 Dianne De Los Santos NP, CONTACT AGENT-C Attending Provider Active Start: October 18, 2024 End: October 18, 2024 Team Status: Inactive Member Role/Relationship Status Dates Dr. Luis Cortés MD Primary Care Provider Active Start: November 06, 2024 End: November 06, 2024 Dr. Luis Cortés MD Attending Provider Active Start: November 06, 2024 End: November 06, 2024 Dr. Luis Cortés MD Referring Provider Active Start: November 06, 2024 End: November 06, 2024 Team Status: Inactive Member Role/Relationship Status Dates Dr. Luis Cortés MD Primary Care Provider Active Start: November 06, 2024 End: November 06, 2024 Dr. Luis Cortés MD Attending Provider Active Start: November 06, 2024 End: November 06, 2024 Dr. Luis Cortés MD Referring Provider Active Start: November 06, 2024 End: November 06, 2024 Team Status: Inactive Member Role/Relationship Status Dates Dr. Luis Cortés MD Primary Care Provider Active Start: November 14, 2024 End: November 14, 2024 Dr. Sneha Rosa DO Attending Provider Active St art: November 14, 2024 End: November 14, 2024 Dr. Sneha Rosa DO Referring Provider Active St art: November 14, 2024 End: November 14, 2024 Team Status: Inactive Member Role/Relationship Status Dates Dr. Luis Crotés MD Primary Care Provider Active Start: November 14, 2024 End: November 14, 2024 Dr. Sneha Rosa , Attending Provider Active St art: November 14, 2024 End: November 14, 2024 Dr. Sneha Rosa , DO Referring Provider Active St art: November 14, 2024 End: November 14, 2024 Team Status: Active Member Role/Relationship Status Dates Dr. Luis Cortés MD Primary Care Provider Active Start: November 15, 2024 Dr. Eliud Giraldo MD Attending Provider Active S tart: November 15, 2024 Zainab Cherry CONTACT AGENT, CONTACT AGENT-C Referring Provider Active Start: November 15, 2024 Team Status: Inactive Member Role/Relationship Status Dates Dr. Luis Cortés MD Primary Care Provider Active Start: November 15, 2024 End: November 15, 2024 Dr. Sneha Rosa DO Attending Provider Active St art: November 15, 2024 End: November 15, 2024 Dr. Sneha Rosa DO Referring Provider Active St art: November 15, 2024 End: November 15, 2024 Team Status: Inactive Member Role/Relationship Status Dates Dr. Luis Cortés MD Primary Care Provider Active Start: November 16, 2024 End: November 16, 2024 Dr. Sneha Rosa , Attending Provider Active St art: November 16, 2024 End: November 16, 2024 Dr. Sneha Rosa DO Referring Provider Active St art: November 16, 2024 End: November 16, 2024 Team Status: Inactive Member Role/Relationship Status Dates Dr. Luis Cortés MD Primary Care Provider Active Start: November 17, 2024 End: November 17, 2024 Dr. Sneha Rosa , Attending Provider Active St art: November 17, 2024 End: November 17, 2024 Dr. Sneha Rosa , DO Referring Provider Active St art: November 17, 2024 End: November 17, 2024 Team Status: Inactive Member Role/Relationship Status Dates Dr. Luis Cortés MD Primary Care Provider Active Start: November 17, 2024 End: November 18, 2024 Dr. Luis Cortés MD Referring Provider Active Start: November 17, 2024 End: November 18, 2024 Dr. Sneha Rosa DO Attending Provider Active St art: November 17, 2024 End: November 18, 2024 SUNIL Brasher Other Provider Active Start: 2024 End: November 18, 2024 Team Status: Inactive Member Role/Relationship Status Dates Dr. Luis Cortés MD Primary Care Provider Active Start: November 18, 2024 End: November 18, 2024 Dr. Sneha Rosa DO Attending Provider Active St art: November 18, 2024 End: November 18, 2024 Dr. Sneha Rosa DO Referring Provider Active St art: November 18, 2024 End: November 18, 2024 Team Status: Inactive Member Role/Relationship Status Dates Dr. Luis Cortés MD Primary Care Provider Active Start: November 20, 2024 End: November 20, 2024 Dr. Sneha Rosa DO Attending Provider Active St art: November 20, 2024 End: November 20, 2024 Dr. Sneha Rosa DO Referring Provider Active St art: November 20, 2024 End: November 20, 2024 Team Status: Inactive Member Role/Relationship Status Dates Dr. Luis Cortés MD Primary Care Provider Active Start: November 22, 2024 End: November 22, 2024 Dr. Sneha Rosa DO Attending Provider Active St art: November 22, 2024 End: November 22, 2024 Dr. Sneha Rosa DO Referring Provider Active St art: November 22, 2024 End: November 22, 2024 Team Status: Inactive Member Role/Relationship Status Dates Dr. Luis Cortés MD Primary Care Provider Active Start: November 27, 2024 End: November 27, 2024 Dr. Amara Reich DO Attending Provider Active Start: November 27, 2024 End: November 27, 2024 Dr. Amara Reich DO Emergency Provider Active Start: November 27, 2024 End: November 27, 2024 Team Status: Inactive Member Role/Relationship Status Dates Dr. Luis Cortés MD Primary Care Provider Active Start: December 07, 2024 End: December 07, 2024 Dr. Luis Cortés MD Referring Provider Active Start: December 07, 2024 End: December 07, 2024 Ni Holt NP-C Attending Provider Active Start: December 07, 2024 End: December 07, 2024 Team Status: Inactive Member Role/Relationship Status Dates Dr. Luis Cortés MD Primary Care Provider Active Start: December 15, 2024 End: December 18, 2024 Dr. Luis Cortés MD Referring Provider Active Start: December 15, 2024 End: December 18, 2024 Dr. Sneha Rosa DO Attending Provider Active St art: December 15, 2024 End: December 18, 2024 SUNIL Brasher Other Provider Active Start: J 2024 End: December 18, 2024 Team Status: Inactive Member Role/Relationship Status Dates Dr. Luis Cortés MD Primary Care Provider Active Start: September 22, 2024 End: September 22, 2024 Navneet Michel CONTACT AGENT, CONTACT AGENT-C Attending Provider Active S tart: September 22, 2024 End: September 22, 2024 Navneet Michel CONTACT AGENT, CONTACT AGENT-C Referring Provider Active S tart: September 22, 2024 End: September 22, 2024 Team Status: Active Member Role/Relationship Status Dates Dr. Luis Cortés MD Primary Care Provider Active Start: September 22, 2024 Dr. Keven Corey MD Attending Provider Active S tart: September 22, 2024 Team Status: Inactive Member Role/Relationship Status Dates Dr. Luis Cortés MD Primary Care Provider Active Start: October 03, 2024 End: October 03, 2024 Dr. Luis Cortés MD Referring Provider Active Start: October 03, 2024 End: October 03, 2024 Zainab Cherry CONTACT AGENT, CONTACT AGENT-C Attending Provider Active Start: October 03, 2024 End: October 03, 2024 Team Status: Inactive Member Role/Relationship Status Dates Dr. Luis Cortés MD Primary Care Provider Active Start: October 13, 2024 End: October 18, 2024 Dr. Luis Cortés MD Referring Provider Active Start: October 13, 2024 End: October 18, 2024 Dr. Sneha Rosa DO Attending Provider Active St art: October 13, 2024 End: October 18, 2024 SUNIL Brasher Other Provider Active Start: Brianne [email or web address] End: October 18, 2024 Team Status: Inactive Member Role/Relationship Status Dates Dr. Luis Cortés MD Primary Care Provider Active Start: October 16, 2024 End: October 16, 2024 Zainab Cherry CONTACT AGENT, CONTACT AGENT-C Attending Provider Active Start: October 16, 2024 End: October 16, 2024 Zainab Cherry CONTACT AGENT, CONTACT AGENT-C Referring Provider Active Start: October 16, 2024 End: October 16, 2024 Team Status: Active Member Role/Relationship Status Dates Dr. Luis Cortés MD Primary Care Provider Active Start: October 16, 2024 Dr. Eliud Giraldo MD Attending Provider Active S tart: October 16, 2024 Zainab Cherry CONTACT AGENT, CONTACT AGENT-C Referring Provider Active Start: October 16, 2024 Team Status: Active Member Role/Relationship Status Dates Dr. Luis Cortés MD Primary Care Provider Active Start: October 17, 2024 Zainab Cherry CONTACT AGENT, CONTACT AGENT-C Attending Provider Active Start: October 17, 2024 Team Status: Inactive Member Role/Relationship Status Dates Dr. Luis Cortés MD Primary Care Provider Active Start: October 18, 2024 End: October 18, 2024 Dr. Luis Cortés MD Referring Provider Active Start: October 18, 2024 End: October 18, 2024 Dianne De Los Santos NP, CONTACT AGENT-C Attending Provider Active Start: October 18, 2024 End: October 18, 2024 Team Status: Inactive Member Role/Relationship Status Dates Dr. Luis Cortés MD Primary Care Provider Active Start: November 06, 2024 End: November 06, 2024 Dr. Luis Cortés MD Attending Provider Active Start: November 06, 2024 End: November 06, 2024 Dr. Luis Cortés MD Referring Provider Active Start: November 06, 2024 End: November 06, 2024 Team Status: Inactive Member Role/Relationship Status Dates Dr. Luis Cortés MD Primary Care Provider Active Start: November 06, 2024 End: November 06, 2024 Dr. Luis Cortés MD Attending Provider Active Start: November 06, 2024 End: November 06, 2024 Dr. Luis Cortés MD Referring Provider Active Start: November 06, 2024 End: November 06, 2024 Team Status: Inactive Member Role/Relationship Status Dates Dr. Luis Cortés MD Primary Care Provider Active Start: November 14, 2024 End: November 14, 2024 Dr. Sneha Rosa DO Attending Provider Active St art: November 14, 2024 End: November 14, 2024 Dr. Sneha Rosa DO Referring Provider Active St art: November 14, 2024 End: November 14, 2024 Team Status: Inactive Member Role/Relationship Status Dates Dr. Luis Cortés MD Primary Care Provider Active Start: November 14, 2024 End: November 14, 2024 Dr. Sneha Rosa DO Attending Provider Active St art: November 14, 2024 End: November 14, 2024 Dr. Sneha Rosa DO Referring Provider Active St art: November 14, 2024 End: November 14, 2024 Team Status: Active Member Role/Relationship Status Dates Dr. Luis Cortés MD Primary Care Provider Active Start: November 15, 2024 Dr. Eliud Giraldo MD Attending Provider Active S tart: November 15, 2024 Zainab Cherry CONTACT AGENT, CONTACT AGENT-C Referring Provider Active Start: November 15, 2024 Team Status: Inactive Member Role/Relationship Status Dates Dr. Luis Cortés MD Primary Care Provider Active Start: November 15, 2024 End: November 15, 2024 Dr. Sneha Rosa , Attending Provider Active St art: November 15, 2024 End: November 15, 2024 Dr. Sneha Rosa DO Referring Provider Active St art: November 15, 2024 End: November 15, 2024 Team Status: Inactive Member Role/Relationship Status Dates Dr. Luis Cortés MD Primary Care Provider Active Start: November 16, 2024 End: November 16, 2024 Dr. Sneha Rosa DO Attending Provider Active St art: November 16, 2024 End: November 16, 2024 Dr. Sneha Rosa DO Referring Provider Active St art: November 16, 2024 End: November 16, 2024 Team Status: Inactive Member Role/Relationship Status Dates Dr. Luis Cortés MD Primary Care Provider Active Start: November 17, 2024 End: November 17, 2024 Dr. Sneha Rosa DO Attending Provider Active St art: November 17, 2024 End: November 17, 2024 Dr. Sneha Rosa DO Referring Provider Active St art: November 17, 2024 End: November 17, 2024 Team Status: Inactive Member Role/Relationship Status Dates Dr. Luis Cortés MD Primary Care Provider Active Start: November 17, 2024 End: November 18, 2024 Dr. Luis Cortés MD Referring Provider Active Start: November 17, 2024 End: November 18, 2024 Dr. Sneha Rosa DO Attending Provider Active St art: November 17, 2024 End: November 18, 2024 SUNIL Brasher Other Provider Active Start: [facility] 2024 End: November 18, 2024 Team Status: Inactive Member Role/Relationship Status Dates Dr. Luis Cortés MD Primary Care Provider Active Start: November 18, 2024 End: November 18, 2024 Dr. Sneha Rosa DO Attending Provider Active St art: November 18, 2024 End: November 18, 2024 Dr. Sneha Rosa DO Referring Provider Active St art: November 18, 2024 End: November 18, 2024 Team Status: Inactive Member Role/Relationship Status Dates Dr. Luis Cortés MD Primary Care Provider Active Start: November 20, 2024 End: November 20, 2024 Dr. Sneha Rosa DO Attending Provider Active St art: November 20, 2024 End: November 20, 2024 Dr. Sneha Rosa DO Referring Provider Active St art: November 20, 2024 End: November 20, 2024 Team Status: Inactive Member Role/Relationship Status Dates Dr. Luis Cortés MD Primary Care Provider Active Start: November 22, 2024 End: November 22, 2024 Dr. Sneha Rosa DO Attending Provider Active St art: November 22, 2024 End: November 22, 2024 Dr. Sneha Rosa DO Referring Provider Active St art: November 22, 2024 End: November 22, 2024 Team Status: Inactive Member Role/Relationship Status Dates Dr. Luis Cortés MD Primary Care Provider Active Start: November 27, 2024 End: November 27, 2024 Dr. Amara Reich DO Attending Provider Active Start: November 27, 2024 End: November 27, 2024 Dr. Amara Reich DO Emergency Provider Active Start: November 27, 2024 End: November 27, 2024 Team Status: Inactive Member Role/Relationship Status Dates Dr. Lusi Cortés MD Primary Care Provider Active Start: December 07, 2024 End: December 07, 2024 Dr. Luis Cortés MD Referring Provider Active Start: December 07, 2024 End: December 07, 2024 CHARMAINE Blank Attending Provider Active Start: December 07, 2024 End: December 07, 2024 Team Status: Inactive Member Role/Relationship Status Dates Dr. Luis Cortés MD Primary Care Provider Active Start: December 15, 2024 End: December 18, 2024 Dr. Luis Cortés MD Referring Provider Active Start: December 15, 2024 End: December 18, 2024 Dr. Sneha Rosa DO Attending Provider Active St art: December 15, 2024 End: December 18, 2024 SUNIL Brasher Other Provider Active Start: 2024 End: December 18, 2024 Team Status: Inactive Member Role/Relationship Status Dates Dr. Luis Cortés MD Primary Care Provider Active Start: December 19, 2024 Dr. Alexia Cai MD Attending Provider Active Start: December 19, 2024 Team Status: Inactive Member Role/Relationship Status Dates Dr. Luis Cortés MD Primary Care Provider Active Start: January 12, 2025 End: January 18, 2025 Dr. Luis Cortés MD Referring Provider Active Start: January 12, 2025 End: January 18, 2025 Dr. Sneha Rosa DO Attending Provider Active St art: January 12, 2025 End: January 18, 2025 SUNIL Brasher Other Provider Active Start: Robyn [email or web address] 2024 End: January 18, 2025 Team Status: Inactive Member Role/Relationship Status Dates Dr. Luis Cortés MD Primary Care Provider Active Start: January 19, 2025 End: January 19, 2025 Dr. Luis Cortés MD Referring Provider Active Start: January 19, 2025 End: January 19, 2025 Dr. Sneha Rosa DO Attending Provider Active St art: January 19, 2025 End: January 19, 2025 SUNIL Brasher Other Provider Active Start: 2024 End: January 19, 2025 Team Status: Inactive Member Role/Relationship Status Dates Dr. Luis Cortés MD Primary Care Provider Active Start: January 19, 2025 End: January 19, 2025 Dr. Luis Cortés MD Referring Provider Active Start: January 19, 2025 End: January 19, 2025 Ni Holt NP-C Attending Provider Active Start: January 19, 2025 End: January 19, 2025 Team Status: Inactive Member Role/Relationship Status Dates Dr. Luis Cortés MD Primary Care Provider Active Start: October 03, 2024 End: October 03, 2024 Dr. Luis Cortés MD Referring Provider Active Start: October 03, 2024 End: October 03, 2024 Zainab Cherry NP CONTACT AGENT-C Attending Provider Active Start: October 03, 2024 End: October 03, 2024 Team Status: Inactive Member Role/Relationship Status Dates Dr. Luis Cortés MD Primary Care Provider Active Start: October 13, 2024 End: October 18, 2024 Dr. Luis Cortés MD Referring Provider Active Start: October 13, 2024 End: October 18, 2024 Dr. Sneha Rosa DO Attending Provider Active St art: October 13, 2024 End: October 18, 2024 SUNIL Brasher Other Provider Active Start: Brianne [email or web address] 2024 End: October 18, 2024 Team Status: Inactive Member Role/Relationship Status Dates Dr. Luis Cortés MD Primary Care Provider Active Start: October 16, 2024 End: October 16, 2024 Zainab Cherry CONTACT AGENT, CONTACT AGENT-C Attending Provider Active Start: October 16, 2024 End: October 16, 2024 Zainab Cherry CONTACT AGENT, CONTACT AGENT-C Referring Provider Active Start: October 16, 2024 End: October 16, 2024 Team Status: Active Member Role/Relationship Status Dates Dr. Luis Cortés MD Primary Care Provider Active Start: October 16, 2024 Dr. Eliud Giraldo MD Attending Provider Active S tart: October 16, 2024 Zainab Cherry CONTACT AGENT, CONTACT AGENT-C Referring Provider Active Start: October 16, 2024 Team Status: Active Member Role/Relationship Status Dates Dr. Luis Cortés MD Primary Care Provider Active Start: October 17, 2024 Zainab Cherry CONTACT AGENT, CONTACT AGENT-C Attending Provider Active Start: October 17, 2024 Team Status: Inactive Member Role/Relationship Status Dates Dr. Luis Cortés MD Primary Care Provider Active Start: October 18, 2024 End: October 18, 2024 Dr. Luis Cortés MD Referring Provider Active Start: October 18, 2024 End: October 18, 2024 Dianne De Los Santos CONTACT AGENT, CONTACT AGENT-C Attending Provider Active Start: October 18, 2024 End: October 18, 2024 Team Status: Inactive Member Role/Relationship Status Dates Dr. Luis Cortés MD Primary Care Provider Active Start: November 06, 2024 End: November 06, 2024 Dr. Luis Cortés MD Attending Provider Active Start: November 06, 2024 End: November 06, 2024 Dr. Luis Cortés MD Referring Provider Active Start: November 06, 2024 End: November 06, 2024 Team Status: Inactive Member Role/Relationship Status Dates Dr. Luis Cortés MD Primary Care Provider Active Start: November 06, 2024 End: November 06, 2024 Dr. Luis Cortés MD Attending Provider Active Start: November 06, 2024 End: November 06, 2024 Dr. Luis Cortés MD Referring Provider Active Start: November 06, 2024 End: November 06, 2024 Team Status: Inactive Member Role/Relationship Status Dates Dr. Luis Cortés MD Primary Care Provider Active Start: November 14, 2024 End: November 14, 2024 Dr. Sneha Rosa DO Attending Provider Active St art: November 14, 2024 End: November 14, 2024 Dr. Sneha Rosa DO Referring Provider Active St art: November 14, 2024 End: November 14, 2024 Team Status: Inactive Member Role/Relationship Status Dates Dr. Luis Cortés MD Primary Care Provider Active Start: November 14, 2024 End: November 14, 2024 Dr. Sneha Rosa DO Attending Provider Active St art: November 14, 2024 End: November 14, 2024 Dr. Sneha Rosa DO Referring Provider Active St art: November 14, 2024 End: November 14, 2024 Team Status: Active Member Role/Relationship Status Dates Dr. Luis Cortés MD Primary Care Provider Active Start: November 15, 2024 Dr. Eliud Giraldo MD Attending Provider Active S tart: November 15, 2024 Zainab Cherry NP, CONTACT AGENT-C Referring Provider Active Start: November 15, 2024 Team Status: Inactive Member Role/Relationship Status Dates Dr. Luis Cortés MD Primary Care Provider Active Start: November 15, 2024 End: November 15, 2024 Dr. Sneha Rosa DO Attending Provider Active St art: November 15, 2024 End: November 15, 2024 Dr. Sneha Rosa DO Referring Provider Active St art: November 15, 2024 End: November 15, 2024 Team Status: Inactive Member Role/Relationship Status Dates Dr. Luis Cortés MD Primary Care Provider Active Start: November 16, 2024 End: November 16, 2024 Dr. Sneha Rosa DO Attending Provider Active St art: November 16, 2024 End: November 16, 2024 Dr. Sneha Rosa DO Referring Provider Active St art: November 16, 2024 End: November 16, 2024 Team Status: Inactive Member Role/Relationship Status Dates Dr. Luis Cortés MD Primary Care Provider Active Start: November 17, 2024 End: November 17, 2024 Dr. Sneha Rosa DO Attending Provider Active St art: November 17, 2024 End: November 17, 2024 Dr. Sneha Rosa DO Referring Provider Active St art: November 17, 2024 End: November 17, 2024 Team Status: Inactive Member Role/Relationship Status Dates Dr. Luis Cortés MD Primary Care Provider Active Start: November 17, 2024 End: November 18, 2024 Dr. Luis Cortés MD Referring Provider Active Start: November 17, 2024 End: November 18, 2024 Dr. Sneha Rosa DO Attending Provider Active St art: November 17, 2024 End: November 18, 2024 SUNIL Brasher Other Provider Active Start: 2024 End: November 18, 2024 Team Status: Inactive Member Role/Relationship Status Dates Dr. Luis Cortés MD Primary Care Provider Active Start: November 18, 2024 End: November 18, 2024 Dr. Sneha Rosa DO Attending Provider Active St art: November 18, 2024 End: November 18, 2024 Dr. Sneha Rosa DO Referring Provider Active St art: November 18, 2024 End: November 18, 2024 Team Status: Inactive Member Role/Relationship Status Dates Dr. Luis Cortés MD Primary Care Provider Active Start: November 20, 2024 End: November 20, 2024 Dr. Sneha Rosa DO Attending Provider Active St art: November 20, 2024 End: November 20, 2024 Dr. Sneha Rosa DO Referring Provider Active St art: November 20, 2024 End: November 20, 2024 Team Status: Inactive Member Role/Relationship Status Dates Dr. Luis Cortés MD Primary Care Provider Active Start: November 22, 2024 End: November 22, 2024 Dr. Sneha Rosa DO Attending Provider Active St art: November 22, 2024 End: November 22, 2024 Dr. Sneha Rosa DO Referring Provider Active St art: November 22, 2024 End: November 22, 2024 Team Status: Inactive Member Role/Relationship Status Dates Dr. Luis Cortés MD Primary Care Provider Active Start: November 27, 2024 End: November 27, 2024 Dr. Amara Reich DO Attending Provider Active Start: November 27, 2024 End: November 27, 2024 Dr. Amara Reich DO Emergency Provider Active Start: November 27, 2024 End: November 27, 2024 Team Status: Inactive Member Role/Relationship Status Dates Dr. Luis Cortés MD Primary Care Provider Active Start: December 07, 2024 End: December 07, 2024 Dr. Luis Cortés MD Referring Provider Active Start: December 07, 2024 End: December 07, 2024 CHARMAINE Blank Attending Provider Active Start: December 07, 2024 End: December 07, 2024 Team Status: Inactive Member Role/Relationship Status Dates Dr. Luis Cortés MD Primary Care Provider Active Start: December 15, 2024 End: December 18, 2024 Dr. Luis Cortés MD Referring Provider Active Start: December 15, 2024 End: December 18, 2024 Dr. Sneha Rosa DO Attending Provider Active St art: December 15, 2024 End: December 18, 2024 SUNIL Brasher Other Provider Active Start: Robyn root 2024 End: December 18, 2024 Team Status: Inactive Member Role/Relationship Status Dates Dr. Luis Cortés MD Primary Care Provider Active Start: December 19, 2024 Dr. Alexia Cai MD Attending Provider Active Start: December 19, 2024 Team Status: Inactive Member Role/Relationship Status Dates Dr. Luis Cortés MD Primary Care Provider Active Start: January 12, 2025 End: January 18, 2025 Dr. Luis Cortés MD Referring Provider Active Start: January 12, 2025 End: January 18, 2025 Dr. Sneha Rosa DO Attending Provider Active St art: January 12, 2025 End: January 18, 2025 SUNIL Brasher Other Provider Active Start: 2024 End: January 18, 2025 Team Status: Inactive Member Role/Relationship Status Dates Dr. Luis Cortés MD Primary Care Provider Active Start: January 19, 2025 End: January 19, 2025 Dr. Luis Cortés MD Referring Provider Active Start: January 19, 2025 End: January 19, 2025 Dr. Sneha Rosa DO Attending Provider Active St art: January 19, 2025 End: January 19, 2025 SUNIL Brasher Other Provider Active Start: A 2024 End: January 19, 2025 Team Status: Inactive Member Role/Relationship Status Dates Dr. Luis Cortés MD Primary Care Provider Active Start: January 19, 2025 End: January 19, 2025 Dr. Luis Cortés MD Referring Provider Active Start: January 19, 2025 End: January 19, 2025 Ni Holt CONTACT AGENT-C Attending Provider Active Start: January 19, 2025 End: January 19, 2025 Team Status: Inactive Member Role/Relationship Status Dates Dr. Luis Cortés MD Primary Care Provider Active Start: January 19, 2025 End: January 19, 2025 Ni Holt , CONTACT AGENT-C Attending Provider Active Start: January 19, 2025 End: January 19, 2025 Ni Holt CONTACT AGENT-C Referring Provider Active Start: January 19, 2025 End: January 19, 2025 Team Status: Inactive Member Role/Relationship Status Dates Dr. Luis Cortés MD Primary Care Provider Active Start: October 13, 2024 End: October 18, 2024 Dr. Luis Cortés MD Referring Provider Active Start: October 13, 2024 End: October 18, 2024 Dr. Sneha Rosa DO Attending Provider Active St art: October 13, 2024 End: October 18, 2024 SUNIL Brasher Other Provider Active Start: A pril 2024 End: October 18, 2024 Team Status: Inactive Member Role/Relationship Status Dates Dr. Luis Cortés MD Primary Care Provider Active Start: October 16, 2024 End: October 16, 2024 Zainab Cherry CONTACT AGENT, CONTACT AGENT-C Attending Provider Active Start: October 16, 2024 End: October 16, 2024 Zainab Cherry CONTACT AGENT, CONTACT AGENT-C Referring Provider Active Start: October 16, 2024 End: October 16, 2024 Team Status: Active Member Role/Relationship Status Dates Dr. Luis Cortés MD Primary Care Provider Active Start: October 16, 2024 Dr. Eliud Giraldo MD Attending Provider Active S tart: October 16, 2024 Zainab Cherry CONTACT AGENT, CONTACT AGENT-C Referring Provider Active Start: October 16, 2024 Team Status: Active Member Role/Relationship Status Dates Dr. Luis Cortés MD Primary Care Provider Active Start: October 17, 2024 Zainab Cherry CONTACT AGENT, CONTACT AGENT-C Attending Provider Active Start: October 17, 2024 Team Status: Inactive Member Role/Relationship Status Dates Dr. Luis Cortés MD Primary Care Provider Active Start: October 18, 2024 End: October 18, 2024 Dr. Luis Cortés MD Referring Provider Active Start: October 18, 2024 End: October 18, 2024 Dianne De Los Santos NP, CONTACT AGENT-C Attending Provider Active Start: October 18, 2024 End: October 18, 2024 Team Status: Inactive Member Role/Relationship Status Dates Dr. Luis Cortés MD Primary Care Provider Active Start: November 06, 2024 End: November 06, 2024 Dr. Luis Cortés MD Attending Provider Active Start: November 06, 2024 End: November 06, 2024 Dr. Luis Cortés MD Referring Provider Active Start: November 06, 2024 End: November 06, 2024 Team Status: Inactive Member Role/Relationship Status Dates Dr. Luis Cortés MD Primary Care Provider Active Start: November 14, 2024 End: November 14, 2024 Dr. Sneha Rosa DO Attending Provider Active St art: November 14, 2024 End: November 14, 2024 Dr. Sneha Rosa DO Referring Provider Active St art: November 14, 2024 End: November 14, 2024 Team Status: Active Member Role/Relationship Status Dates Dr. Luis Cortés MD Primary Care Provider Active Start: November 15, 2024 Dr. Eliud Giraldo MD Attending Provider Active S tart: November 15, 2024 Zainab Cherry CONTACT AGENT, CONTACT AGENT-C Referring Provider Active Start: November 15, 2024 Team Status: Inactive Member Role/Relationship Status Dates Dr. Luis Cortés MD Primary Care Provider Active Start: November 15, 2024 End: November 15, 2024 Dr. Sneha Rosa , Attending Provider Active St art: November 15, 2024 End: November 15, 2024 Dr. Sneha Rosa DO Referring Provider Active St art: November 15, 2024 End: November 15, 2024 Team Status: Inactive Member Role/Relationship Status Dates Dr. Luis Cortés MD Primary Care Provider Active Start: November 16, 2024 End: November 16, 2024 Dr. Sneha Rosa DO Attending Provider Active St art: November 16, 2024 End: November 16, 2024 Dr. Sneha Rosa DO Referring Provider Active St art: November 16, 2024 End: November 16, 2024 Team Status: Inactive Member Role/Relationship Status Dates Dr. Luis Cortés MD Primary Care Provider Active Start: November 17, 2024 End: November 17, 2024 Dr. Sneha Rosa DO Attending Provider Active St art: November 17, 2024 End: November 17, 2024 Dr. Sneha Rosa DO Referring Provider Active St art: November 17, 2024 End: November 17, 2024 Team Status: Inactive Member Role/Relationship Status Dates Dr. Luis Cortés MD Primary Care Provider Active Start: November 17, 2024 End: November 18, 2024 Dr. Luis Cortés MD Referring Provider Active Start: November 17, 2024 End: November 18, 2024 Dr. Sneha Rosa DO Attending Provider Active St art: November 17, 2024 End: November 18, 2024 SUNIL Brasher Other Provider Active Start: 2024 End: November 18, 2024 Team Status: Inactive Member Role/Relationship Status Dates Dr. Luis Cortés MD Primary Care Provider Active Start: November 18, 2024 End: November 18, 2024 Dr. Sneha Rosa DO Attending Provider Active St art: November 18, 2024 End: November 18, 2024 Dr. Sneha Rosa DO Referring Provider Active St art: November 18, 2024 End: November 18, 2024 Team Status: Inactive Member Role/Relationship Status Dates Dr. Luis Cortés MD Primary Care Provider Active Start: November 20, 2024 End: November 20, 2024 Dr. Sneha Roas DO Attending Provider Active St art: November 20, 2024 End: November 20, 2024 Dr. Sneha Rosa DO Referring Provider Active St art: November 20, 2024 End: November 20, 2024 Team Status: Inactive Member Role/Relationship Status Dates Dr. Luis Cortés MD Primary Care Provider Active Start: November 22, 2024 End: November 22, 2024 Dr. Sneha Rosa DO Attending Provider Active St art: November 22, 2024 End: November 22, 2024 Dr. Sneha Rosa DO Referring Provider Active St art: November 22, 2024 End: November 22, 2024 Team Status: Inactive Member Role/Relationship Status Dates Dr. Luis Cortés MD Primary Care Provider Active Start: November 27, 2024 End: November 27, 2024 Dr. Amara Reich DO Attending Provider Active Start: November 27, 2024 End: November 27, 2024 Dr. Amara Reich DO Emergency Provider Active Start: November 27, 2024 End: November 27, 2024 Team Status: Inactive Member Role/Relationship Status Dates Dr. Luis Cortés MD Primary Care Provider Active Start: December 07, 2024 End: December 07, 2024 Dr. Luis Cortés MD Referring Provider Active Start: December 07, 2024 End: December 07, 2024 CHARMAINE Blank Attending Provider Active Start: December 07, 2024 End: December 07, 2024 Team Status: Inactive Member Role/Relationship Status Dates Dr. Luis Cortés MD Primary Care Provider Active Start: December 15, 2024 End: December 18, 2024 Dr. Luis Cortés MD Referring Provider Active Start: December 15, 2024 End: December 18, 2024 Dr. Sneha Rosa DO Attending Provider Active St art: December 15, 2024 End: December 18, 2024 SUNIL Brasher Other Provider Active Start: J 2024 End: December 18, 2024 Team Status: Inactive Member Role/Relationship Status Dates Dr. Luis Cortés MD Primary Care Provider Active Start: December 19, 2024 Dr. Alexia Cai MD Attending Provider Active Start: December 19, 2024 Team Status: Inactive Member Role/Relationship Status Dates Dr. Luis Cortés MD Primary Care Provider Active Start: January 12, 2025 End: January 18, 2025 Dr. Luis Cortés MD Referring Provider Active Start: January 12, 2025 End: January 18, 2025 Dr. Sneha Rosa DO Attending Provider Active St art: January 12, 2025 End: January 18, 2025 SUNIL Brasher Other Provider Active Start: 2024 End: January 18, 2025 Team Status: Inactive Member Role/Relationship Status Dates Dr. Luis Cortés MD Primary Care Provider Active Start: January 19, 2025 End: January 19, 2025 Dr. Luis Cortés MD Referring Provider Active Start: January 19, 2025 End: January 19, 2025 Dr. Sneha Rosa DO Attending Provider Active St art: January 19, 2025 End: January 19, 2025 SUNIL Brasher Other Provider Active Start: 2024 End: January 19, 2025 Team Status: Inactive Member Role/Relationship Status Dates Dr. Luis Cortés MD Primary Care Provider Active Start: January 19, 2025 End: January 19, 2025 Dr. Luis Cortés MD Referring Provider Active Start: January 19, 2025 End: January 19, 2025 Ni Holt CONTACT AGENT-C Attending Provider Active Start: January 19, 2025 End: January 19, 2025 Team Status: Inactive Member Role/Relationship Status Dates Dr. Luis Cortés MD Primary Care Provider Active Start: January 19, 2025 End: January 19, 2025 Ni Holt CONTACT AGENT-C Attending Provider Active Start: January 19, 2025 End: January 19, 2025 Ni Holt CONTACT AGENT-C Referring Provider Active Start: January 19, 2025 End: January 19, 2025 Team Status: Inactive Member Role/Relationship Status Dates Dr. Luis Cortés MD Primary Care Provider Active Start: February 07, 2025 End: February 07, 2025 Dr. Luis Cortés MD Attending Provider Active Start: February 07, 2025 End: February 07, 2025 Dr. Luis Cortés MD Referring Provider Active Start: February 07, 2025 End: February 07, 2025 Team Status: Inactive Member Role/Relationship Status Dates Dr. Luis Cortés MD Primary Care Provider Active Start: October 18, 2024 End: October 18, 2024 Dr. Luis Cortés MD Referring Provider Active Start: October 18, 2024 End: October 18, 2024 Dianne De Los Santos CONTACT AGENT, CONTACT AGENT-C Attending Provider Active Start: October 18, 2024 End: October 18, 2024 Team Status: Inactive Member Role/Relationship Status Dates Dr. Luis Cortés MD Primary Care Provider Active Start: November 06, 2024 End: November 06, 2024 Dr. Luis Cortés MD Attending Provider Active Start: November 06, 2024 End: November 06, 2024 Dr. Luis Cortés MD Referring Provider Active Start: November 06, 2024 End: November 06, 2024 Team Status: Inactive Member Role/Relationship Status Dates Dr. Luis Cortés MD Primary Care Provider Active Start: November 06, 2024 End: November 06, 2024 Dr. Luis Cortés MD Attending Provider Active Start: November 06, 2024 End: November 06, 2024 Dr. Luis Cortés MD Referring Provider Active Start: November 06, 2024 End: November 06, 2024 Team Status: Inactive Member Role/Relationship Status Dates Dr. Luis Cortés MD Primary Care Provider Active Start: November 14, 2024 End: November 14, 2024 Dr. Sneha Rosa DO Attending Provider Active St art: November 14, 2024 End: November 14, 2024 Dr. Sneha Rosa DO Referring Provider Active St art: November 14, 2024 End: November 14, 2024 Team Status: Inactive Member Role/Relationship Status Dates Dr. Luis Cortés MD Primary Care Provider Active Start: November 14, 2024 End: November 14, 2024 Dr. Sneha Malys , DO Attending Provider Active St art: November 14, 2024 End: November 14, 2024 Dr. Sneha Rosa DO Referring Provider Active St art: November 14, 2024 End: November 14, 2024 Team Status: Active Member Role/Relationship Status Dates Dr. Luis Cortés MD Primary Care Provider Active Start: November 15, 2024 Dr. Eliud Giraldo MD Attending Provider Active S tart: November 15, 2024 Zainab Cherry CONTACT AGENT, CONTACT AGENT-C Referring Provider Active Start: November 15, 2024 Team Status: Inactive Member Role/Relationship Status Dates Dr. Luis Cortés MD Primary Care Provider Active Start: November 15, 2024 End: November 15, 2024 Dr. Sneha Rosa DO Attending Provider Active St art: November 15, 2024 End: November 15, 2024 Dr. Sneha Rosa DO Referring Provider Active St art: November 15, 2024 End: November 15, 2024 Team Status: Inactive Member Role/Relationship Status Dates Dr. Luis Cortés MD Primary Care Provider Active Start: November 16, 2024 End: November 16, 2024 Dr. Sneha Rosa DO Attending Provider Active St art: November 16, 2024 End: November 16, 2024 Dr. Sneha Rosa DO Referring Provider Active St art: November 16, 2024 End: November 16, 2024 Team Status: Inactive Member Role/Relationship Status Dates Dr. Luis Cortés MD Primary Care Provider Active Start: November 17, 2024 End: November 17, 2024 Dr. Sneha Rosa DO Attending Provider Active St art: November 17, 2024 End: November 17, 2024 Dr. Sneha Rosa DO Referring Provider Active St art: November 17, 2024 End: November 17, 2024 Team Status: Inactive Member Role/Relationship Status Dates Dr. Luis Cortés MD Primary Care Provider Active Start: November 17, 2024 End: November 18, 2024 Dr. Luis Cortés MD Referring Provider Active Start: November 17, 2024 End: November 18, 2024 Dr. Sneha Rosa DO Attending Provider Active St art: November 17, 2024 End: November 18, 2024 SUNIL Brasher Other Provider Active Start: 2024 End: November 18, 2024 Team Status: Inactive Member Role/Relationship Status Dates Dr. Luis Cortés MD Primary Care Provider Active Start: November 18, 2024 End: November 18, 2024 Dr. Sneha Rosa DO Attending Provider Active St art: November 18, 2024 End: November 18, 2024 Dr. Sneha Rosa DO Referring Provider Active St art: November 18, 2024 End: November 18, 2024 Team Status: Inactive Member Role/Relationship Status Dates Dr. Luis Cortés MD Primary Care Provider Active Start: November 20, 2024 End: November 20, 2024 Dr. Sneha Rosa DO Attending Provider Active St art: November 20, 2024 End: November 20, 2024 Dr. Sneha Rosa DO Referring Provider Active St art: November 20, 2024 End: November 20, 2024 Team Status: Inactive Member Role/Relationship Status Dates Dr. Luis Cortés MD Primary Care Provider Active Start: November 22, 2024 End: November 22, 2024 Dr. Sneha Rosa DO Attending Provider Active St art: November 22, 2024 End: November 22, 2024 Dr. Sneha Rosa DO Referring Provider Active St art: November 22, 2024 End: November 22, 2024 Team Status: Inactive Member Role/Relationship Status Dates Dr. Luis Cortés MD Primary Care Provider Active Start: November 27, 2024 End: November 27, 2024 Dr. Amara Reich DO Attending Provider Active Start: November 27, 2024 End: November 27, 2024 Dr. Amara Reich DO Emergency Provider Active Start: November 27, 2024 End: November 27, 2024 Team Status: Inactive Member Role/Relationship Status Dates Dr. Luis Cortés MD Primary Care Provider Active Start: December 07, 2024 End: December 07, 2024 Dr. Luis Cortés MD Referring Provider Active Start: December 07, 2024 End: December 07, 2024 CHARMAINE Blank Attending Provider Active Start: December 07, 2024 End: December 07, 2024 Team Status: Inactive Member Role/Relationship Status Dates Dr. Luis Cortés MD Primary Care Provider Active Start: December 15, 2024 End: December 18, 2024 Dr. Luis Cortés MD Referring Provider Active Start: December 15, 2024 End: December 18, 2024 Dr. Sneha Rosa DO Attending Provider Active St art: December 15, 2024 End: December 18, 2024 SUNIL Brasher Other Provider Active Start: 2024 End: December 18, 2024 Team Status: Inactive Member Role/Relationship Status Dates Dr. Luis Cortés MD Primary Care Provider Active Start: December 19, 2024 Dr. Alexia Cai MD Attending Provider Active Start: December 19, 2024 Team Status: Inactive Member Role/Relationship Status Dates Dr. Luis Cortés MD Primary Care Provider Active Start: January 12, 2025 End: January 18, 2025 Dr. Luis Cortés MD Referring Provider Active Start: January 12, 2025 End: January 18, 2025 Dr. Sneha Rosa DO Attending Provider Active St art: January 12, 2025 End: January 18, 2025 SUNIL Brasher Other Provider Active Start: 2024 End: January 18, 2025 Team Status: Inactive Member Role/Relationship Status Dates Dr. Luis Cortés MD Primary Care Provider Active Start: January 19, 2025 End: January 19, 2025 Dr. Luis Cortés MD Referring Provider Active Start: January 19, 2025 End: January 19, 2025 Dr. Sneha Rosa DO Attending Provider Active St art: January 19, 2025 End: January 19, 2025 SUNIL Brasher Other Provider Active Start: Brianne 2024 End: January 19, 2025 Team Status: Inactive Member Role/Relationship Status Dates Dr. Luis Cortés MD Primary Care Provider Active Start: January 19, 2025 End: January 19, 2025 Dr. Luis Cortés MD Referring Provider Active Start: January 19, 2025 End: January 19, 2025 Ni Ungerer , CONTACT AGENT-C Attending Provider Active Start: January 19, 2025 End: January 19, 2025 Team Status: Inactive Member Role/Relationship Status Dates Dr. Luis Cortés MD Primary Care Provider Active Start: January 19, 2025 End: January 19, 2025 Ni Howardr , CONTACT AGENT-C Attending Provider Active Start: January 19, 2025 End: January 19, 2025 Ni Holt , CONTACT AGENT-C Referring Provider Active Start: January 19, 2025 End: January 19, 2025 Team Status: Inactive Member Role/Relationship Status Dates Dr. Luis Cortés MD Primary Care Provider Active Start: February 07, 2025 End: February 07, 2025 Dr. Luis Cortés MD Attending Provider Active Start: February 07, 2025 End: February 07, 2025 Dr. Luis Cortés MD Referring Provider Active Start: February 07, 2025 End: February 07, 2025 Team Status: Inactive Member Role/Relationship Status Dates Dr. Luis Cortés MD Primary Care Provider Active Start: 2025 End: 2025 Dr. Luis Cortés MD Referring Provider Active Start: 2025 End: 2025 Zainab Cherry CONTACT AGENT, CONTACT AGENT-C Attending Provider Active Start: 2025 End: 2025 Team Status: Active Member Role/Relationship Status Dates Dr. Luis Cortés MD Primary care physician Activ e Team Status: Inactive Member Role/Relationship Status Dates Dr. Luis Cortés MD Primary care physician Activ e Start: November 22, 2024 End: November 22, 2024 Dr. Sneah Rosa DO Attending physician Active S tart: November 22, 2024 End: November 22, 2024 Dr. Sneha Rosa DO Referring Provider Active St art: November 22, 2024 End: November 22, 2024 Team Status: Inactive Member Role/Relationship Status Dates Dr. Luis Cortés MD Primary care physician Activ e Start: November 27, 2024 End: November 27, 2024 Dr. Amara Reich DO Attending physician Active Start: November 27, 2024 End: November 27, 2024 Dr. Amara Reich DO Emergency Department Physician Active Start: November 27, 2024 End: November 27, 2024 Team Status: Inactive Member Role/Relationship Status Dates Dr. Luis Cortés MD Primary care physician Activ e Start: December 07, 2024 End: December 07, 2024 Dr. Luis Cortés MD Referring Provider Active Start: December 07, 2024 End: December 07, 2024 CHARMAINE Blank Attending physician Active Start: December 07, 2024 End: December 07, 2024 Team Status: Inactive Member Role/Relationship Status Dates Dr. Luis Cortés MD Primary care physician Activ e Start: December 15, 2024 End: December 18, 2024 Dr. Luis Cortés MD Referring Provider Active Start: December 15, 2024 End: December 18, 2024 Dr. Sneha Rosa DO Attending physician Active S tart: December 15, 2024 End: December 18, 2024 SUNIL Brasher Nurse Practitioner Active Star t: December 15, 2024 End: December 18, 2024 Team Status: Inactive Member Role/Relationship Status Dates Dr. Luis Cortés MD Primary care physician Activ e Start: December 19, 2024 Dr. Alexia Cai MD Attending physician Active Start: December 19, 2024 Team Status: Inactive Member Role/Relationship Status Dates Dr. Luis Cortés MD Primary care physician Activ e Start: January 12, 2025 End: January 18, 2025 Dr. Luis Cortés MD Referring Provider Active Start: January 12, 2025 End: January 18, 2025 Dr. Sneha Rosa DO Attending physician Active S tart: January 12, 2025 End: January 18, 2025 SUNIL Brasher Nurse Practitioner Active Star t: January 12, 2025 End: January 18, 2025 Team Status: Inactive Member Role/Relationship Status Dates Dr. Luis Cortés MD Primary care physician Activ e Start: January 19, 2025 End: January 19, 2025 Dr. Luis Cortés MD Referring Provider Active Start: January 19, 2025 End: January 19, 2025 Dr. Sneha Rosa DO Attending physician Active S tart: January 19, 2025 End: January 19, 2025 SUNIL Brasher Nurse Practitioner Active Star t: January 19, 2025 End: January 19, 2025 Team Status: Inactive Member Role/Relationship Status Dates Dr. Luis Cortés MD Primary care physician Activ e Start: January 19, 2025 End: January 19, 2025 Dr. Luis Cortés MD Referring Provider Active Start: January 19, 2025 End: January 19, 2025 Ni Holt CONTACT AGENT-C Attending physician Active Start: January 19, 2025 End: January 19, 2025 Team Status: Inactive Member Role/Relationship Status Dates Dr. Luis Cortés MD Primary care physician Activ e Start: January 19, 2025 End: January 19, 2025 Ni Holt CONTACT AGENT-C Attending physician Active Start: January 19, 2025 End: January 19, 2025 Ni Holt CONTACT AGENT-C Referring Provider Active Start: January 19, 2025 End: January 19, 2025 Team Status: Inactive Member Role/Relationship Status Dates Dr. Luis Cortés MD Primary care physician Activ e Start: February 07, 2025 End: February 07, 2025 Dr. Luis Cortés MD Attending physician Active Start: February 07, 2025 End: February 07, 2025 Dr. Luis Cortés MD Referring Provider Active Start: February 07, 2025 End: February 07, 2025 Team Status: Inactive Member Role/Relationship Status Dates Dr. Luis Cortés MD Primary care physician Activ e Start: 2025 End: 2025 Dr. Luis Cortés MD Referring Provider Active Start: 2025 End: 2025 Zainab Cherry NP CONTACT AGENT-C Attending physician Active Start: 2025 End: 2025 Team Status: Inactive Member Role/Relationship Status Dates Dr. Luis Cortés MD Primary care physician Activ e Start: March 06, 2025 End: March 06, 2025 Dr. Luis Cortés MD Attending physician Active Start: March 06, 2025 End: March 06, 2025 Dr. Luis Cortés MD Referring Provider Active Start: March 06, 2025 End: March 06, 2025 Team Status: Inactive Member Role/Relationship Status Dates Dr. Luis Cortés MD Primary care physician Activ e Start: December 07, 2024 End: December 07, 2024 Dr. Luis Cortés MD Referring Provider Active Start: December 07, 2024 End: December 07, 2024 CHARMAINE Blank Attending physician Active Start: December 07, 2024 End: December 07, 2024 Team Status: Inactive Member Role/Relationship Status Dates Dr. Luis Cortés MD Primary care physician Activ e Start: December 15, 2024 End: December 18, 2024 Dr. Luis Cortés MD Referring Provider Active Start: December 15, 2024 End: December 18, 2024 Dr. Sneha Rosa DO Attending physician Active S tart: December 15, 2024 End: December 18, 2024 SUNIL Brasher Nurse Practitioner Active Star t: December 15, 2024 End: December 18, 2024 Team Status: Inactive Member Role/Relationship Status Dates Dr. Luis Cortés MD Primary care physician Activ e Start: December 19, 2024 Dr. Alexia Cai MD Attending physician Active Start: December 19, 2024 Team Status: Inactive Member Role/Relationship Status Dates Dr. Luis Cortés MD Primary care physician Activ e Start: January 12, 2025 End: January 18, 2025 Dr. Luis Cortés MD Referring Provider Active Start: January 12, 2025 End: January 18, 2025 Dr. Sneha Rosa DO Attending physician Active S tart: January 12, 2025 End: January 18, 2025 SUNIL Brasher Nurse Practitioner Active Star t: January 12, 2025 End: January 18, 2025 Team Status: Inactive Member Role/Relationship Status Dates Dr. Luis Cortés MD Primary care physician Activ e Start: January 19, 2025 End: January 19, 2025 Dr. Luis Cortés MD Referring Provider Active Start: January 19, 2025 End: January 19, 2025 Dr. Sneha Rosa DO Attending physician Active S tart: January 19, 2025 End: January 19, 2025 SUNIL Brasher Nurse Practitioner Active Star t: January 19, 2025 End: January 19, 2025 Team Status: Inactive Member Role/Relationship Status Dates Dr. Luis Cortés MD Primary care physician Activ e Start: January 19, 2025 End: January 19, 2025 Dr. Luis Cortés MD Referring Provider Active Start: January 19, 2025 End: January 19, 2025 Ni Holt CONTACT AGENT-C Attending physician Active Start: January 19, 2025 End: January 19, 2025 Team Status: Inactive Member Role/Relationship Status Dates Dr. Luis Cortés MD Primary care physician Activ e Start: January 19, 2025 End: January 19, 2025 Ni Holt CONTACT AGENT-C Attending physician Active Start: January 19, 2025 End: January 19, 2025 Ni Holt CONTACT AGENT-C Referring Provider Active Start: January 19, 2025 End: January 19, 2025 Team Status: Inactive Member Role/Relationship Status Dates Dr. Luis Cortés MD Primary care physician Activ e Start: February 07, 2025 End: February 07, 2025 Dr. Luis Cortés MD Attending physician Active Start: February 07, 2025 End: February 07, 2025 Dr. Luis Cortés MD Referring Provider Active Start: February 07, 2025 End: February 07, 2025 Team Status: Inactive Member Role/Relationship Status Dates Dr. Luis Cortés MD Primary care physician Activ e Start: 2025 End: 2025 Dr. Luis Cortés MD Referring Provider Active Start: 2025 End: 2025 Zainab Cherry NP, CONTACT AGENT-C Attending physician Active Start: 2025 End: 2025 Team Status: Inactive Member Role/Relationship Status Dates Dr. Luis Cortés MD Primary care physician Activ e Start: March 06, 2025 End: March 06, 2025 Dr. Luis Cortés MD Attending physician Active Start: March 06, 2025 End: March 06, 2025 Dr. Luis Cortés MD Referring Provider Active Start: March 06, 2025 End: March 06, 2025 Team Status: Inactive Member Role/Relationship Status Dates Dr. Luis Cortés MD Primary care physician Activ e Start: March 28, 2025 End: March 28, 2025 Dr. Luis Cortés MD Referring Provider Active Start: March 28, 2025 End: March 28, 2025 Dr. Jon Rubio MD Attending physician Active Start: March 28, 2025 End: March 28, 2025 Team Status: Active Member Role/Relationship Status Dates Dr. Luis Cortés MD Primary care physician Activ e Start: March 28, 2025 Dr. Jon Rubio MD Attending physician Active Start: March 28, 2025 Dr. Jon Rubio MD Referring Provider Active S tart: March 28, 2025 Goals (unrecognized section and content) Goals may be documented in a n alternate sectionGoals may be documented in an alternate sectionGoals may be documented in an alternate sectionGoals may be documented in an alternate sectionGoals may be documented in an alternate sectionGoals may be documented in an alternate sectionGoals may be documented in an alternate sectionGoals may be documented in an alternate sectionGoals may be documented in an alternate sectionGoals may be documented in an alternate sectionGoals may be documented in an alternate sectionGoals may be documented in an alternate sectionGoals may be documented in an alternate sectionGoals may be documented in an alternate sectionGoals may be documented in an alternate sectionGoals may be documented in an alternate sectionGoals may be documented in an alternate sectionGoals may be documented in an alternate sectionGoals may be documented in an alternate sectionGoals may be documented in an alternate sectionGoals may be documented in an alternate sectionGoals may be documented in an alternate sectionGoals may be documented in an alternate sectionGoals may be documented in an alternate sectionGoals may be documented in an alternate sectionGoals may be documented in an alternate sectionGoals may be documented in an alternate sectionGoals may be documented in an alternate sectionGoals may be documented in an alternate sectionGoals may be documented in an alternate sectionGoals may be documented in an alternate sectionGoals may be documented in an alternate sectionGoals may be documented in an alternate sectionGoals may be documented in an alternate sectionGoals may be documented in an alternate sectionGoals may be documented in an alternate sectionGoals may be documented in an alternate sectionGoals may be documented in an alternate sectionGoals may be documented in an alternate section Scheduled Active and Recently Administ ered Medications (unrecognized section and content) Medication Order 02/10/2025 02/11/2025 02/12/2025 meclizine (Antivert) tablet 25 mg (COMPLETED) 25 mg, oral, Once, On 02/11/25 at 2255, For 1 dose 2310 (Given - Provider: Stewart Decker RN) PRN Medication Order 02/10/2025 02/11/2025 02/12/2025 oxygen (O2) therapy 1 Dose, inhalation, Continuous PRN, oxygen, Starting on 02/11/25 at 2237, Device: Nasal Cannula, Rate in liters per minute: 2 LPM, Keep O2 Sat Above: 90% 2237 (Start - Provider: Tamika Sullivan, MACK) FOR RECORDS PERTAINING TO PATIENTS WHO ARE [...] BE BASED ON THE PRIMARY CLINICAL RECORDS. [email or web address]. provides no warranty or guarantee of the accuracy or completeness of information in this document.
== END 2025-05-10 18:45 | disposition home or self-care (01) ==
PROVIDERS: Emergency Provider Emergency Medicine; PCP Internal Medicine; Visit Provider Emergency Medicine
DX: M17.12 Unilateral primary osteoarthritis, left knee (principal); Z96.651 Presence of right artificial knee joint; Z87.891 Personal history of nicotine dependence
CPT/HCPCS: 73564; 99282